=== PATIENT | female | born 1945 | race Caucasian/White ===

== ENCOUNTER 2017-06-20 16:41 | Inpatient (IN) | payer OTHER, MEDICARE, SELFPAY ==
[2017-06-20 16:47] VITALS: BP 143/61; PULSE 88; RESP 20; TEMP 36.7; O2SAT 96
[2017-06-20 16:48] VITALS: BMI 32.5
[2017-06-20 16:54] VITALS: BMI 32.6
[2017-06-20 17:10] LABS: Bedside Glucose 86 mg/dL (70-110)
--- NOTE | 2017-06-20 18:30 | NURSING ---
Pt admitted to room 19 from [facility]. Oriented to room and call light system explained.
[2017-06-20] MEDS: oxyCODONE 5 MG Tablet PO (18:54)
[2017-06-20 20:56] LABS: Bedside Glucose 290 mg/dL (70-110)
--- NOTE | 2017-06-20 21:07 | PCM.HP.STD ---
Problem List (1) Stroke Status: Chronic (2) Peripheral arterial occlusive disease Status: Chronic (3) Ulcer at the right metatarsal head Status: Acute (4) Abscess of right foot Status: Acute (5) C. difficile colitis Status: Chronic (6) Diabetes mellitus Status: Chronic (7) Osteomyelitis of right foot Status: Acute (8) Diabetes mellitus with polyneuropathy Status: Chronic Qualifiers: (9) Hypertension Status: Chronic Qualifiers: (10) Chronic pain Status: Chronic Qualifiers: (11) Fatty liver Status: Chronic (12) Hyperlipidemia Status: Chronic Qualifiers: (13) Coronary artery disease Status: Chronic Qualifiers: (14) Hypothyroidism Status: Chronic Qualifiers: (15) Iron deficiency anemia Status: Chronic Qualifiers: (16) GERD (gastroesophageal reflux disease) Status: Chronic Qualifiers: (17) Vitamin D deficiency Status: Chronic (18) Insomnia Status: Chronic Qualifiers: History of Present Illness Date of Admission: 06/20/17 Chief Complaint: Here for rehabilitation, strengthening, prior to discharge home with spouse. The patient is a 72 year old Female with below past medical history with followin06/11/2017 Direct admit to hospital from Dr. Magana's office for right foot ulcer, right foot cellulitis. Blood cultures x 2, wound cultures done. IV Vancomycin, IV Flagyl. 06/11/2017 Doppler of legs negative for DVT. 06/12/2017 MRI right midfoot showed osteomyelitis 3rd metatarsal head, soft tissue abscess distal third metatarsal head. Patient underwent surgical incision and drainage per Dr. Magana. 06/13/2017 Dr. Webb consulted, cultures growing staph, strep. Continue Vancomycin, Zosyn. 06/18/2017 Dr. Magana perfromed right transmetatarsal amputation. Cultures grew strep agalactiae A, strep mitis, staph aureus. Dr. Webb recommended Augmentin. 06/20/2017 Admit to TCU for rehabilitation, strengthening, prior to discharge home with spouse. Past Medical History Past Medical History (Chronic Problems): Chronic Problems (Last Updated 06/07/17 @ 16:07 by Madison Alicea) Stroke (Chronic) Peripheral arterial occlusive disease (Chronic) Stented coronary artery (Chronic) PTCA and YASIR to proximal and distal CX per Dr. Hatfield 12/21/2014; History of left heart catheterization (Chronic) CABG X 3 vessels [facility]:DANIEL to LAD, reverse SVG to dx and to 2nd OM per Dr. Borjas @ [facility] 09/09/2014; PTCA andDES to proximal and distal CX per Dr. Hatfield 12/21/2014; History of coronary artery bypass graft (Chronic) CABG X 3 vessels [facility]:DANIEL to LAD, reverse SVG to dx and to 2nd OM per Dr. Borjas @ [facility] 09/09/2014 Atherosclerotic heart disease of [place] coronary artery without angina pectoris (Chronic) CABG X 3 vessels [facility]:DANIEL to LAD, reverse SVG to dx and to 2nd OM per Dr. Borjas @ [facility] 09/09/2014; PTCA and YASIR to proximal and distal CX per Dr. Hatfield 12/21/2014; C. 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) Carotid artery disease (Chronic) Xerosis of skin (Chronic) Malnutrition (Chronic) Ulcer of right foot with fat layer exposed (Chronic) Diabetes mellitus with polyneuropathy (Chronic) Peripheral vascular disease (Chronic) History of stroke (Chronic) Hypertension (Chronic) Obesity (Chronic) Diabetes mellitus type II (Chronic) Chronic pain (Chronic) Fatty liver (Chronic) Hyperlipidemia (Chronic) Coronary artery disease (Chronic) Hypothyroidism (Chronic) Iron deficiency anemia (Chronic) GERD (gastroesophageal reflux disease) (Chronic) Vitamin D deficiency (Chronic) Insomnia (Chronic) Allergies Penicillins Allergy (Severe, Verified 06/07/17 15:35) Unknown atorvastatin calcium [From Lipitor] Allergy (Verified 03/10/17 21:12) Unknown bupropion HCl [From Wellbutrin] Allergy (Verified 03/10/17 21:12) Unknown mannitol [From Reclast] Allergy (Verified 03/10/17 21:12) joint pain, unable to breathe, unable to walk propoxyphene napsylate [From Darvocet-N 100] Allergy (Verified 03/10/17 21:12) Unknown Quinolones Allergy (Verified 03/10/17 21:12) Unknown Tetanus Vaccines and Toxoid [Tetanus Vaccines & Toxoid] Allergy (Verified 03/10/17 21:12) Chest tightness tizanidine Allergy (Verified 03/10/17 21:12) Unknown water for injection,sterile [From Reclast] Allergy (Verified 03/10/17 21:12) joint pain, unable to breathe, unable to walk JOINT PAIN,UNABLE TO BREATHE,UNABLE TO WALK zoledronic acid [From Reclast] Allergy (Verified 03/10/17 21:12) joint pain,unable to breathe, unaable to walk JOINT PAIN,UNABLE TO BREATHE,UNABLE TO WALK pravastatin Adverse Reaction (Severe, Verified 06/07/17 15:36) Myalgias gemfibrozil Adverse Reaction (Intermediate, Verified 06/07/17 15:36) Unknown NSAIDS (Non-Steroidal Anti-Inflamma Adverse Reaction (Verified 03/10/17 21:12) Other Home Medications: Ambulatory Orders Medication Instructions Recorded Aspirin [Aspirin, Baby] 81 mg PO DAILY@0800 03/10/17 Clobetasol Propionate/Emoll 1 applic TP BID 03/10/17 [Clobetasol Emollient 0.05% Crm] Clopidogrel Bisulfate [Plavix] 75 mg PO DAILY 03/10/17 Diclofenac Sodium 1 applic TRANSDERM. TID 03/10/17 Ergocalciferol [Vitamin D] 50,000 unit PO Q7D 03/10/17 Levothyroxine Sodium [Levoxyl] 75 mcg PO QHS 03/10/17 Metoprolol Tartrate [Lopressor 50 mg PO BID 03/10/17 (beta fina)] Nitroglycerin [Nitrostat] 0.4 mg SUBLINGUAL Q5M PRN 03/10/17 Pantoprazole Sodium [Protonix] 40 mg PO DAILY 03/10/17 Pravastatin Sodium 40 mg PO DAILY 03/10/17 Menthol/Lanolin/Calamine/Znox 1 applic TOPICAL DAILY 03/11/17 [Calmoseptine Ointment] insulin aspart 100 unit/mL 20 unit SC TIDAC ml 06/07/17 subcutaneous pen isosorbide mononitrate ER 30 mg 30 mg PO BID tab 06/07/17 tablet,extended release 24 hr Amlodipine Besylate [Norvasc] 5 mg PO QHS 06/11/17 Calcium Carbonate [Tums] 500 mg PO Q4H PRN PRN 06/11/17 Cholestyramine (with Sugar) 4 gm PO DAILY 06/11/17 [Cholestyramine Packet] Ferrous Sulfate Syrup 300 mg PO BIDCM 06/11/17 Gabapentin [Neurontin] 300 mg PO QHS 06/11/17 Magnesium Oxide 400 mg PO DINNER 06/11/17 Melatonin 10 mg PO QHS PRN PRN 06/11/17 Promethazine HCl 25 mg PO BID PRN PRN 06/11/17 Cholestyramine/Aspartame 4 gm PO BID PRN 06/15/17 [Cholestyramine Light Packet] Acetaminophen [Tylenol Tablet] 650 mg PO Q6H PRN PRN tablet 06/20/17 Amoxicillin/Potassium Clav 1 each PO BID 06/20/17 [Augmentin 875-125 Tablet] Cyclobenzaprine [Flexeril] 10 mg PO TID PRN PRN tablet 06/20/17 Diazepam [Valium] 2 mg PO TID PRN PRN #6 tab 06/20/17 Enoxaparin [Lovenox] 40 mg SC DAILY@0600 06/20/17 Insulin Detemir [Levemir FlexPen] 20 units SC BREAKFAST 06/20/17 Insulin Detemir [Levemir FlexPen] 30 units SC DINNER 06/20/17 Lactobacillus Acidophilus 1 tablet PO TID 06/20/17 [Acidophilus] Lidocaine [Lidoderm Patch] 1 patch TOPICAL DAILY 06/20/17 Loperamide [Imodium] 2 mg PO Q6H PRN PRN capsule 06/20/17 Oxycodone CR [Oxycontin] 20 mg PO BID 06/20/17 Oxycodone [Oxyir] 5 - 10 mg PO Q4H PRN PRN #12 tab 06/20/17 Surgical History: appendectomy, coronary bypass surgery, gastric bypass, tonsillectomy, - - Cardiac stent, , Carpal tunnel release, 3rd toe amputation, carotid endarterectomy, right foot 5th ray amputation, right foot transmetatarsal amputation. 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 Lives: Spouse/ Significant Other Smoking Status: Never smoker Tobacco Use: Non-smoker Alcohol: None Drugs: None - *Family History Paternal Family History: Family History (Last Updated 06/13/17 @ 16:50 by CLIFFORD Burris) Mother Cancer CVA (cerebral vascular accident) CAD (coronary artery disease) Father CAD (coronary artery disease) History of coronary artery bypass graft Sister CAD (coronary artery disease) Multiple sclerosis History Items: No pertinent history Maternal Family History: Family History (Last Updated 06/13/17 @ 16:50 by ADDISON BurrisC) Mother Cancer CVA (cerebral vascular accident) CAD (coronary artery disease) Father CAD (coronary artery disease) History of coronary artery bypass graft Sister CAD (coronary artery disease) Multiple sclerosis History Items: No pertinent history Review of Systems Constitutional: Denies: Chills, Fever, Weight Change HEENT: Denies: Head Aches, Sinus Congestion, Sinus Drainage Cardiovascular: Denies: Chest Pain, Palpitations Respiratory: Denies: Cough, Shortness of breath at rest, Sputum production Gastrointestinal: Denies: Abdominal Pain, Nausea, Vomiting Genitourinary: Denies: Dysuria Musculoskeletal: Reports: Foot Pain - Right., Muscle pain. Denies: Joint Pain, Joint Tenderness Skin: Denies: Rash, Wounds Neurological: Denies: Numbness, Tingling, Focal weakness Psychiatric: Denies: Anxiety, Depression, Homicidal Ideations, Suicidal Ideations Hematologic/ Lymphatic: Denies: Easy Bruising, Easy Bleeding VTE Information - Inpt Only VTE Present on Admission: No VTE Mechan Device Prophylaxis: Knee High MINDY Hose VTE Pharm Prophylaxis ordered?: Yes - Physical Exam General: Alert, Oriented x3, Cooperative HEENT: Atraumatic, PERRLA, EOMI, Normocephalic Neck: Supple, No JVD, Negative Carotid Bruits Lungs: Clear to auscultation, Normal air movement Cardiovascular: Regular rate, No murmurs Abdomen: Bowel Sounds Present, Soft, Non Tender Extremities: No edema, Capillary Refill Less than 3 Seconds, - - Right foot wrapped in dressing, PICC line right upper extremity. Skin: No rashes, No breakdown Musculoskeletal: No Tenderness to Palpation of Joints or Extremities, Muscle Wasting Neurological: Cranial nerves II-XII grossly intact Psych/Mental Status: Normal Affect, Appropriate Vital Signs Temp Pulse Resp BP Pulse Ox 98.0 F 88 20 H 143/61 H 96 06/20/17 16:47 06/20/17 16:47 06/20/17 16:47 06/20/17 16:47 06/20/17 16:47 Oxygen Delivery Method Room Air Weight: 86.1 kg Body Mass Index (BMI) 32.5 Finger Stick Blood Glucose 193 Intake and Output for Last 24 Hours 01/06/19/17 06/20/17 23:59 23:59 23:59 Intake Total 240 / 240 Balance 240 / 240 POC Glucose 06/20/17 06/20/17 20:47 16:58 POC Glucose 290 H 86 Assessment/Plan 72 year old female with below past medical history hospitalized for right foot ulcer, right foot osteomyelitis, underwent right foot transmetatarsal amputation per Dr. Magana 06/18/2017, admitted to TCU for rehabilitation, strengthening, prior to discharge home with spouse. Debility - PT/OT. Pain - Tylenol 1000MG Q8H PRN mild pain, Oxycontin 20MG BID, Oxycodone 10MG Q4H PRN severe pain, Lidoderm patch 1 patch daily. Bowel - resident has diarrhea. Pneumonia vaccination - Administer Prevnar 13 and/or Pneumovax 23 as necessary. DVT prophylaxis - Lovenox 40MG SC daily. Hypertension - Metoprolol 50MG BID, Amlodipine 5MG QHS. Right foot osteomyelitis status post transmetatarsal amputation - Augmentin 875MG BID, stop date per Dr. Webb, Dr. Magana following. Coronary Artery Disease - Metoprolol 50MG BID, Imdur 30MG TID, Plavix 75MG daily, Aspirin 81MG daily, NTG 0.4MG SL Q5M PRN chest pain. GERD - Pantoprazole 40MG daily, TUMS 500MG Q4H PRN. Diarrhea - Questran 4GM daily, BID PRN, Loperamide 2MG Q6H PRN. Dermatitis - Temovate topically BID. Muscle spasm - Baclofen 10MG TID, Diazepam 2MG TID. Osteoarthritis - Diclofenac transderm TID. Vitamin D deficiency - D2 50,000 units per week. Iron deficiency anemia - Ferrous sulfate 300MG BIDCM. Neuropathic pain - Gabapentin 300MG QHS. Nutrition - Glucerna shake 120ML PO TID, Blue 1 packet BID. Diabetes Mellitus II - Levemir 20 units QAM, 30 units Qdinner, Novolog 20 units TIDAC. C. Diff prophylaxis - Lactobacillus 1 tablet TID. Hypothyroidism - Levothyroxine 75MG daily. Hypomagnesemia - Mag Oxide 400MG dinner. Insomnia - Melatonin 10MG QHS. Skin irritation - Calmoseptine 4x/day buttocks. Hyperlipidemia - Pravastatin 40MG QHS. Nausea - Phenergan 25MG BID PRN.
--- NOTE | 2017-06-20 21:15 | HP.PCM_ITS ---
Problem List (1) Stroke Status: Chronic (2) Peripheral arterial occlusive disease Status: Chronic (3) Ulcer at the right metatarsal head Status: Acute (4) Abscess of right foot Status: Acute (5) C. difficile colitis Status: Chronic (6) Diabetes mellitus Status: Chronic (7) Osteomyelitis of right foot Status: Acute (8) Diabetes mellitus with polyneuropathy Status: Chronic Qualifiers: (9) Hypertension Status: Chronic Qualifiers: (10) Chronic pain Status: Chronic Qualifiers: (11) Fatty liver Status: Chronic (12) Hyperlipidemia Status: Chronic Qualifiers: (13) Coronary artery disease Status: Chronic Qualifiers: (14) Hypothyroidism Status: Chronic Qualifiers: (15) Iron deficiency anemia Status: Chronic Qualifiers: (16) GERD (gastroesophageal reflux disease) Status: Chronic Qualifiers: (17) Vitamin D deficiency Status: Chronic (18) Insomnia Status: Chronic Qualifiers: History of Present Illness Date of Admission: 06/20/17 Chief Complaint: Here for rehabilitation, strengthening, prior to discharge home with spouse. The patient is a 72 year old Female with below past medical history with followin06/11/2017 Direct admit to hospital from Dr. Magana's office for right foot ulcer, right foot cellulitis. Blood cultures x 2, wound cultures done. IV Vancomycin, IV Flagyl. 06/11/2017 Doppler of legs negative for DVT. 06/12/2017 MRI right midfoot showed osteomyelitis 3rd metatarsal head, soft tissue abscess distal third metatarsal head. Patient underwent surgical incision and drainage per Dr. Magana. 06/13/2017 Dr. Webb consulted, cultures growing staph, strep. Continue Vancomycin, Zosyn. 06/18/2017 Dr. Magana perfromed right transmetatarsal amputation. Cultures grew strep agalactiae A, strep mitis, staph aureus. Dr. Webb recommended Augmentin. 06/20/2017 Admit to TCU for rehabilitation, strengthening, prior to discharge home with spouse. Past Medical History Past Medical History (Chronic Problems): Chronic Problems (Last Updated 06/07/17 @ 16:07 by Madison Alicea) Stroke (Chronic) Peripheral arterial occlusive disease (Chronic) Stented coronary artery (Chronic) PTCA and YASIR to proximal and distal CX per Dr. Hatfield 12/21/2014; History of left heart catheterization (Chronic) CABG X 3 vessels [facility]:DANIEL to LAD, reverse SVG to dx and to 2nd OM per Dr. Borjas @ [facility] 09/09/2014; PTCA andDES to proximal and distal CX per Dr. Hatfield ; History of coronary artery bypass graft (Chronic) CABG X 3 vessels [facility]:DANIEL to LAD, reverse SVG to dx and to 2nd OM per Dr. Borjas @ [facility] 09/09/2014 Atherosclerotic heart disease of [place] coronary artery without angina pectoris (Chronic) CABG X 3 vessels [facility]:DANIEL to LAD, reverse SVG to dx and to 2nd OM per Dr. Borjas @ [facility] 09/09/2014; PTCA and YASIR to proximal and distal CX per Dr. Hatfield 12/21/2014; C. 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) Carotid artery disease (Chronic) Xerosis of skin (Chronic) Malnutrition (Chronic) Ulcer of right foot with fat layer exposed (Chronic) Diabetes mellitus with polyneuropathy (Chronic) Peripheral vascular disease (Chronic) History of stroke (Chronic) Hypertension (Chronic) Obesity (Chronic) Diabetes mellitus type II (Chronic) Chronic pain (Chronic) Fatty liver (Chronic) Hyperlipidemia (Chronic) Coronary artery disease (Chronic) Hypothyroidism (Chronic) Iron deficiency anemia (Chronic) GERD (gastroesophageal reflux disease) (Chronic) Vitamin D deficiency (Chronic) Insomnia (Chronic) Allergies Penicillins Allergy (Severe, Verified 06/07/17 15:35) Unknown atorvastatin calcium [From Lipitor] Allergy (Verified 03/10/17 21:12) Unknown bupropion HCl [From Wellbutrin] Allergy (Verified 03/10/17 21:12) Unknown mannitol [From Reclast] Allergy (Verified 03/10/17 21:12) joint pain, unable to breathe, unable to walk propoxyphene napsylate [From Darvocet-N 100] Allergy (Verified 03/10/17 21:12) Unknown Quinolones Allergy (Verified 03/10/17 21:12) Unknown Tetanus Vaccines and Toxoid [Tetanus Vaccines & Toxoid] Allergy (Verified 21:12) Chest tightness tizanidine Allergy (Verified 03/10/17 21:12) Unknown water for injection,sterile [From Reclast] Allergy (Verified 03/10/17 21:12) joint pain, unable to breathe, unable to walk JOINT PAIN,UNABLE TO BREATHE,UNABLE TO WALK zoledronic acid [From Reclast] Allergy (Verified 03/10/17 21:12) joint pain,unable to breathe, unaable to walk JOINT PAIN,UNABLE TO BREATHE,UNABLE TO WALK pravastatin Adverse Reaction (Severe, Verified 06/07/17 15:36) Myalgias gemfibrozil Adverse Reaction (Intermediate, Verified 06/07/17 15:36) Unknown NSAIDS (Non-Steroidal Anti-Inflamma Adverse Reaction (Verified 03/10/17 21:12) Other Home Medications: Ambulatory Orders Medication Instructions Recorded Aspirin [Aspirin, Baby] 81 mg PO DAILY@0800 03/10/17 Clobetasol Propionate/Emoll 1 applic TP BID 03/10/17 [Clobetasol Emollient 0.05% Crm] Clopidogrel Bisulfate [Plavix] 75 mg PO DAILY 03/10/17 Diclofenac Sodium 1 applic TRANSDERM. TID 03/10/17 Ergocalciferol [Vitamin D] 50,000 unit PO Q7D 03/10/17 Levothyroxine Sodium [Levoxyl] 75 mcg PO QHS 03/10/17 Metoprolol Tartrate [Lopressor 50 mg PO BID 03/10/17 (beta fina)] Nitroglycerin [Nitrostat] 0.4 mg SUBLINGUAL Q5M PRN 03/10/17 Pantoprazole Sodium [Protonix] 40 mg PO DAILY 03/10/17 Pravastatin Sodium 40 mg PO DAILY 03/10/17 Menthol/Lanolin/Calamine/Znox 1 applic TOPICAL DAILY 03/11/17 [Calmoseptine Ointment] insulin aspart 100 unit/mL 20 unit SC TIDAC ml 06/07/17 subcutaneous pen isosorbide mononitrate ER 30 mg 30 mg PO BID tab 06/07/17 tablet,extended release 24 hr Amlodipine Besylate [Norvasc] 5 mg PO QHS 06/11/17 Calcium Carbonate [Tums] 500 mg PO Q4H PRN PRN 06/11/17 Cholestyramine (with Sugar) 4 gm PO DAILY 06/11/17 [Cholestyramine Packet] Ferrous Sulfate Syrup 300 mg PO BIDCM 06/11/17 Gabapentin [Neurontin] 300 mg PO QHS 06/11/17 Magnesium Oxide 400 mg PO DINNER 06/11/17 Melatonin 10 mg PO QHS PRN PRN 06/11/17 Promethazine HCl 25 mg PO BID PRN PRN 06/11/17 Cholestyramine/Aspartame 4 gm PO BID PRN 06/15/17 [Cholestyramine Light Packet] Acetaminophen [Tylenol Tablet] 650 mg PO Q6H PRN PRN tablet 06/20/17 Amoxicillin/Potassium Clav 1 each PO BID 06/20/17 [Augmentin 875-125 Tablet] Cyclobenzaprine [Flexeril] 10 mg PO TID PRN PRN tablet 06/20/17 Diazepam [Valium] 2 mg PO TID PRN PRN #6 tab 06/20/17 Enoxaparin [Lovenox] 40 mg SC DAILY@0600 06/20/17 Insulin Detemir [Levemir FlexPen] 20 units SC BREAKFAST 06/20/17 Insulin Detemir [Levemir FlexPen] 30 units SC DINNER 06/20/17 Lactobacillus Acidophilus 1 tablet PO TID 06/20/17 [Acidophilus] Lidocaine [Lidoderm Patch] 1 patch TOPICAL DAILY 06/20/17 Loperamide [Imodium] 2 mg PO Q6H PRN PRN capsule 06/20/17 Oxycodone CR [Oxycontin] 20 mg PO BID 06/20/17 Oxycodone [Oxyir] 5 - 10 mg PO Q4H PRN PRN #12 tab 06/20/17 Surgical History: appendectomy, coronary bypass surgery, gastric bypass, tonsillectomy, - - Cardiac stent, , Carpal tunnel release, 3rd toe amputation, carotid endarterectomy, right foot 5th ray amputation, right foot transmetatarsal amputation. 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 Lives: Spouse/ Significant Other Smoking Status: Never smoker Tobacco Use: Non-smoker Alcohol: None Drugs: None - *Family History Paternal Family History: Family History (Last Updated 06/13/17 @ 16:50 by CLIFFORD Burris) Mother Cancer CVA (cerebral vascular accident) CAD (coronary artery disease) Father CAD (coronary artery disease) History of coronary artery bypass graft Sister CAD (coronary artery disease) Multiple sclerosis History Items: No pertinent history Maternal Family History: Family History (Last Updated 06/13/17 @ 16:50 by ADDISON BurrisC) Mother Cancer CVA (cerebral vascular accident) CAD (coronary artery disease) Father CAD (coronary artery disease) History of coronary artery bypass graft Sister CAD (coronary artery disease) Multiple sclerosis History Items: No pertinent history Review of Systems Constitutional: Denies: Chills, Fever, Weight Change HEENT: Denies: Head Aches, Sinus Congestion, Sinus Drainage Cardiovascular: Denies: Chest Pain, Palpitations Respiratory: Denies: Cough, Shortness of breath at rest, Sputum production Gastrointestinal: Denies: Abdominal Pain, Nausea, Vomiting Genitourinary: Denies: Dysuria Musculoskeletal: Reports: Foot Pain - Right., Muscle pain. Denies: Joint Pain, Joint Tenderness Skin: Denies: Rash, Wounds Neurological: Denies: Numbness, Tingling, Focal weakness Psychiatric: Denies: Anxiety, Depression, Homicidal Ideations, Suicidal Ideations Hematologic/ Lymphatic: Denies: Easy Bruising, Easy Bleeding VTE Information - Inpt Only VTE Present on Admission: No VTE Mechan Device Prophylaxis: Knee High MINDY Hose VTE Pharm Prophylaxis ordered?: Yes - Physical Exam General: Alert, Oriented x3, Cooperative HEENT: Atraumatic, PERRLA, EOMI, Normocephalic Neck: Supple, No JVD, Negative Carotid Bruits Lungs: Clear to auscultation, Normal air movement Cardiovascular: Regular rate, No murmurs Abdomen: Bowel Sounds Present, Soft, Non Tender Extremities: No edema, Capillary Refill Less than 3 Seconds, - - Right foot wrapped in dressing, PICC line right upper extremity. Skin: No rashes, No breakdown Musculoskeletal: No Tenderness to Palpation of Joints or Extremities, Muscle Wasting Neurological: Cranial nerves II-XII grossly intact Psych/Mental Status: Normal Affect, Appropriate Vital Signs Temp Pulse Resp BP Pulse Ox 98.0 F 88 20 H 143/61 H 96 06/20/17 16:47 06/20/17 16:47 06/20/17 16:47 06/20/17 16:47 06/20/17 16:47 Oxygen Delivery Method Room Air Weight: 86.1 kg Body Mass Index (BMI) 32.5 Finger Stick Blood Glucose 193 Intake and Output for Last 24 Hours 01/06/19/17 06/20/17 23:59 23:59 23:59 Intake Total 240 / 240 Balance 240 / 240 POC Glucose 06/20/17 06/20/17 20:47 16:58 POC Glucose 290 H 86 Assessment/Plan 72 year old female with below past medical history hospitalized for right foot ulcer, right foot osteomyelitis, underwent right foot transmetatarsal amputation per Dr. Magana 06/18/2017, admitted to TCU for rehabilitation, strengthening, prior to discharge home with spouse. * Debility - PT/OT. * Pain - Tylenol 1000MG Q8H PRN mild pain, Oxycontin 20MG BID, Oxycodone 10MG Q4H PRN severe pain, Lidoderm patch 1 patch daily. * Bowel - resident has diarrhea. * Pneumonia vaccination - Administer Prevnar 13 and/or Pneumovax 23 as necessary. * DVT prophylaxis - Lovenox 40MG SC daily. * Hypertension - Metoprolol 50MG BID, Amlodipine 5MG QHS. * Right foot osteomyelitis status post transmetatarsal amputation - Augmentin 875MG BID, stop date per Dr. Webb, Dr. Magana following. * Coronary Artery Disease - Metoprolol 50MG BID, Imdur 30MG TID, Plavix 75MG daily, Aspirin 81MG daily, NTG 0.4MG SL Q5M PRN chest pain. * GERD - Pantoprazole 40MG daily, TUMS 500MG Q4H PRN. * Diarrhea - Questran 4GM daily, BID PRN, Loperamide 2MG Q6H PRN. * Dermatitis - Temovate topically BID. * Muscle spasm - Baclofen 10MG TID, Diazepam 2MG TID. * Osteoarthritis - Diclofenac transderm TID. * Vitamin D deficiency - D2 50,000 units per week. * Iron deficiency anemia - Ferrous sulfate 300MG BIDCM. * Neuropathic pain - Gabapentin 300MG QHS. * Nutrition - Glucerna shake 120ML PO TID, Blue 1 packet BID. * Diabetes Mellitus II - Levemir 20 units QAM, 30 units Qdinner, Novolog 20 units TIDAC. * C. Diff prophylaxis - Lactobacillus 1 tablet TID. * Hypothyroidism - Levothyroxine 75MG daily. * Hypomagnesemia - Mag Oxide 400MG dinner. * Insomnia - Melatonin 10MG QHS. * Skin irritation - Calmoseptine 4x/day buttocks. * Hyperlipidemia - Pravastatin 40MG QHS. * Nausea - Phenergan 25MG BID PRN.
[2017-06-20] MEDS: Gabapentin 300 MG Capsule PO (21:39)
[2017-06-20] MEDS: amLODIPine 5 MG Tablet PO (21:40)
[2017-06-20] MEDS: Levothyroxine 75 MCG Tablet PO (21:40)
--- NOTE | 2017-06-20 22:10 | NURSING ---
Dr. Rush notified of patient's BS of 290. No new orders given.
[2017-06-20] MEDS: MELATONIN 10 MG TABLET PO (23:33)
[2017-06-20] MEDS: oxyCODONE 5 MG Tablet 10 MG PO (23:33)
[2017-06-20] MEDS: diazePAM 2 MG Tablet PO (23:34)
[2017-06-20] MEDS: Baclofen 10 MG Tablet PO (23:34)
[2017-06-20] MEDS: Menthol/Lanolin/Calamine/Znox 113 GM Tube 1 APPLIC TOPICAL (23:34)
[2017-06-20 23:50] LABS: Bedside Glucose 321 mg/dL (70-110)
--- NOTE | 2017-06-20 23:54 | NURSING ---
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 NOT SOCIAL EARLIER IN THE SHIFT, STATES HER PAIN IS A 6/10. PT REQUESTED AND GIVEN PRN PAIN MED, PT REQUESTED AND RECEIVED A WARM BLANKET. ACCUCHECK DONE RESULT OF 321, REPORTED TO PER ODILIA. NEW ORDER RECEIVED.
[2017-06-21 06:35] VITALS: BP 147/69; PULSE 85
[2017-06-21] MEDS: Metoprolol Tartrate 50 MG Tablet PO ×2 (06:35→17:55)
[2017-06-21] MEDS: Pravastatin 40 MG Tablet PO (06:35)
[2017-06-21] MEDS: Enoxaparin 40 MG/0.4 ML Syringe SC (06:35)
[2017-06-21] MEDS: Pantoprazole Sodium 40 MG Tablet PO (06:35)
[2017-06-21] MEDS: Clopidogrel Bisulfate 75 MG Tablet PO (06:35)
[2017-06-21] MEDS: Baclofen 10 MG Tablet PO (06:38)
[2017-06-21] MEDS: Menthol/Lanolin/Calamine/Znox 113 GM Tube 1 APPLIC TOPICAL ×4 (06:40→22:20)
[2017-06-21] MEDS: Lidocaine 5% Patch 1 PATCH TOPICAL (06:43)
[2017-06-21] MEDS: Isosorbide Mononitrate 30 MG Tablet PO ×2 (06:43→18:21)
[2017-06-21] MEDS: Amox/Clavulanate 875 MG Tablet PO ×2 (06:44→18:21)
[2017-06-21 07:01] LABS: Bedside Glucose 140 mg/dL (70-110)
[2017-06-21] MEDS: diazePAM 2 MG Tablet PO ×2 (07:11→23:59)
[2017-06-21 07:16] LABS: Absolute Lymphocyte Count 1.87 X10^3/ul (0.83-4.51); Absolute Neutrophil Count 3.5 X10^3/uL (2.0-7.7); Basophil# 0.01 X10^3/uL; Basophil% 0.2 % (0-1); Eosinophil# 0.37 X10^3/uL; Eosinophils% 5.7 % (0-5); Hematocrit 30.2 % (37-47); Hemoglobin 9.4 g/dl (12.0-15.0); Lymphocyte # 1.87 X10^3/ul (4.0); Lymphocyte % 28.7 % (19-41); Mean Corp Hgb Conc 31.1 g/gl (32-36); Mean Corpuscular Hgb 26.2 pg (27.0-32.0); Mean Corpuscular Volume 84.1 fL (81-99); Mean Platelet Vol. 8.7 fl (6.2-12.0); Monocyte# 0.76 X10^3/uL; Monocyte% 11.7 % (0-10); Neutrophil # 3.49 X10^3/uL (2.7-7.7); Neutrophil % 53.4 % (47-70); Platelet Count 227 K/mm3 (150-450); RBC Distribution Width CV 15.5 % (11.6-14.6); Red Blood Count 3.59 M/mm3 (4.2-5.4); White Blood Count 6.5 K/mm3 (4.4-11.0)
[2017-06-21 07:20] LABS: Anion Gap 8 (5-15); BUN 27 mg/dL (7-18); Calcium,Total 8.8 mg/dL (8.5-10.1); Chloride 107 mmol/L (98-107); Creatinine, Serum 1.35 mg/dL (0.55-1.02); EST Glomerular Filtration Rate 41 mL/min (>60); Est Glom Filt Rate - Afr Amer 50 mL/min (>60); Estimated Creatinine Clearance 33.48 ml/min; Glucose 142 mg/dL (70-110); Potassium 4.2 mmol/L (3.5-5.1); Sodium Level 142 mmol/L (136-145)
[2017-06-21 07:21] LABS: POSITIVE COUNT NO; POSITIVE DIFFERENTIAL NO; POSITIVE MORPHOLOGY NO
[2017-06-21] MEDS: Ferrous Sulfate 300 MG/5 ML UDC PO (09:28)
[2017-06-21] MEDS: Aspirin 81 MG TAB.CHEW PO (09:28)
[2017-06-21] MEDS: Glucerna Shake 120 ML LIQUID PO ×3 (09:28→17:55)
[2017-06-21 11:56] LABS: Bedside Glucose 204 mg/dL (70-110)
[2017-06-21] MEDS: Tuberculin,Purif.prot.deriv. 50 TU/ML Vial 5 ML ID (12:18)
[2017-06-21] MEDS: Acetaminophen 500 MG Tablet 1000 MG PO (12:24)
--- NOTE | 2017-06-21 13:29 | PCM.PN.RX ---
<EyallazaramargoZay Juan Antonio - Last Filed: 06/21/17 13:29> Progress Note - Pharmacy Subjective: [] Objective: Allergies Penicillins Allergy (Severe, Verified 06/07/17 15:35) Unknown atorvastatin calcium [From Lipitor] Allergy (Verified 03/10/17 21:12) Unknown bupropion HCl [From Wellbutrin] Allergy (Verified 03/10/17 21:12) Unknown mannitol [From Reclast] Allergy (Verified 03/10/17 21:12) joint pain, unable to breathe, unable to walk propoxyphene napsylate [From Darvocet-N 100] Allergy (Verified 03/10/17 21:12) Unknown Quinolones Allergy (Verified 03/10/17 21:12) Unknown Tetanus Vaccines and Toxoid [Tetanus Vaccines & Toxoid] Allergy (Verified 03/10/17 21:12) Chest tightness tizanidine Allergy (Verified 03/10/17 21:12) Unknown water for injection,sterile [From Reclast] Allergy (Verified 03/10/17 21:12) joint pain, unable to breathe, unable to walk JOINT PAIN,UNABLE TO BREATHE,UNABLE TO WALK zoledronic acid [From Reclast] Allergy (Verified 03/10/17 21:12) joint pain,unable to breathe, unaable to walk JOINT PAIN,UNABLE TO BREATHE,UNABLE TO WALK pravastatin Adverse Reaction (Severe, Verified 06/07/17 15:36) Myalgias gemfibrozil Adverse Reaction (Intermediate, Verified 06/07/17 15:36) Unknown NSAIDS (Non-Steroidal Anti-Inflamma Adverse Reaction (Verified 03/10/17 21:12) Other Home Medications Medication Instructions Recorded Aspirin [Aspirin, Baby] 81 mg PO DAILY@0800 03/10/17 Clobetasol Propionate/Emoll 1 applic TP BID 03/10/17 [Clobetasol Emollient 0.05% Crm] Clopidogrel Bisulfate [Plavix] 75 mg PO DAILY 03/10/17 Diclofenac Sodium 1 applic TRANSDERM. TID 03/10/17 Ergocalciferol [Vitamin D] 50,000 unit PO Q7D 03/10/17 Levothyroxine Sodium [Levoxyl] 75 mcg PO QHS 03/10/17 Metoprolol Tartrate [Lopressor 50 mg PO BID 03/10/17 (beta marine)] Nitroglycerin [Nitrostat] 0.4 mg SUBLINGUAL Q5M PRN 03/10/17 Pantoprazole Sodium [Protonix] 40 mg PO DAILY 03/10/17 Pravastatin Sodium 40 mg PO DAILY 03/10/17 Menthol/Lanolin/Calamine/Znox 1 applic TOPICAL DAILY 03/11/17 [Calmoseptine Ointment] insulin aspart 100 unit/mL 20 unit SC TIDAC ml 06/07/17 subcutaneous pen isosorbide mononitrate ER 30 mg 30 mg PO BID tab 06/07/17 tablet,extended release 24 hr Amlodipine Besylate [Norvasc] 5 mg PO QHS 06/11/17 Calcium Carbonate [Tums] 500 mg PO Q4H PRN PRN 06/11/17 Cholestyramine (with Sugar) 4 gm PO DAILY 06/11/17 [Cholestyramine Packet] Ferrous Sulfate Syrup 300 mg PO BIDCM 06/11/17 Gabapentin [Neurontin] 300 mg PO QHS 06/11/17 Magnesium Oxide 400 mg PO DINNER 06/11/17 Melatonin 10 mg PO QHS PRN PRN 06/11/17 Promethazine HCl 25 mg PO BID PRN PRN 06/11/17 Cholestyramine/Aspartame 4 gm PO BID PRN 06/15/17 [Cholestyramine Light Packet] Acetaminophen [Tylenol Tablet] 650 mg PO Q6H PRN PRN tablet 06/20/17 Amoxicillin/Potassium Clav 1 each PO BID 06/20/17 [Augmentin 875-125 Tablet] Cyclobenzaprine [Flexeril] 10 mg PO TID PRN PRN tablet 06/20/17 Diazepam [Valium] 2 mg PO TID PRN PRN #6 tab 06/20/17 Enoxaparin [Lovenox] 40 mg SC DAILY@0600 06/20/17 Insulin Detemir [Levemir FlexPen] 20 units SC BREAKFAST 06/20/17 Insulin Detemir [Levemir FlexPen] 30 units SC DINNER 06/20/17 Lactobacillus Acidophilus 1 tablet PO TID 06/20/17 [Acidophilus] Lidocaine [Lidoderm Patch] 1 patch TOPICAL DAILY 06/20/17 Loperamide [Imodium] 2 mg PO Q6H PRN PRN capsule 06/20/17 Oxycodone CR [Oxycontin] 20 mg PO BID 06/20/17 Oxycodone [Oxyir] 5 - 10 mg PO Q4H PRN PRN #12 tab 06/20/17 Current Medications Generic Name Dose Route Start Last Admin Trade Name Freq PRN Reason Stop Dose Admin Acetaminophen 1,000 mg 06/20/17 21:42 06/21/17 12:24 Tylenol PO 1,000 mg Q8H PRN Administration MILD PAIN (1-3/10) Amlodipine Besylate 5 mg 06/20/17 22:00 06/20/17 21:40 Norvasc PO 5 mg QHS [facility] Administration Amoxicillin/Clavulanate Potassium 875 mg 06/21/17 06:00 06/21/17 06:44 Augmentin Tablet PO 875 mg BID [facility] Administration Aspirin 81 mg 06/21/17 08:00 06/21/17 09:28 Aspirin, Baby PO 81 mg DAILY@0800 [facility] Administration Baclofen 10 mg 06/20/17 22:00 06/21/17 06:38 Lioresal PO 10 mg TID [facility] Administration Calamine/Phenol 1 applic 06/20/17 22:00 06/21/17 12:23 Calmoseptine Ointment TOPICAL 1 tube 4X/DAY [facility] Administration Protocol Calcium Carbonate 500 mg 06/20/17 18:12 Tums PO Q4H PRN PRN acid reflux Cholestyramine Resin 4 gm 06/20/17 18:12 Questran 4gm Packet PO BID PRN Diarrhea Cholestyramine Resin 4 gm 06/21/17 06:00 06/21/17 07:17 Questran 4gm Packet PO Not Given DAILY [facility] Clobetasol Propionate 1 applic 06/21/17 06:00 06/21/17 07:03 Temovate Ointment TOPICAL Not Given BID [facility] Clopidogrel Bisulfate 75 mg 06/21/17 06:00 06/21/17 06:35 Plavix PO 75 mg DAILY [facility] Administration Diazepam 2 mg 06/20/17 22:00 06/21/17 07:11 Valium PO 2 mg TID [facility] Administration Enoxaparin Sodium 40 mg 06/21/17 06:00 06/21/17 06:35 Lovenox SC 40 mg DAILY@0600 [facility] Administration Ergocalciferol 50,000 unit 06/20/17 18:15 01/25/18 21:39 Vitamin D PO 50,000 unit Q7D [facility] Administration Ferrous Sulfate 300 mg 06/21/17 08:00 06/21/17 09:28 Ferrous Sulfate Syrup PO 300 mg BIDCM [facility] Administration Gabapentin 300 mg 06/20/17 22:00 06/20/17 21:39 Neurontin PO 300 mg QHS [facility] Administration Heparin Sodium (Beef Lung) 500 unit 06/21/17 07:44 Heparin 500 Unit/5 Ml (100/Ml) IV UD PRN HEPARIN FLUSH Insulin Aspart 20 units 06/21/17 06:45 06/21/17 12:18 Novolog Flexpen ([facility]) SC 20 u TIDAC [facility] Administration Insulin Detemir 20 units 06/21/17 08:00 06/21/17 09:29 Levemir ([facility]) SC 20 units BREAKFAST [facility] Administration Insulin Detemir 30 units 06/21/17 17:00 Levemir ([facility]) SC DINNER [facility] Isosorbide Mononitrate 30 mg 06/21/17 06:00 06/21/17 06:43 Imdur PO 30 mg BID [facility] Administration Lactobacillus Acidophilus 1 tablet 06/20/17 22:00 06/21/17 06:44 Acidophilus PO 1 tablet TID [facility] Administration Levothyroxine Sodium 75 mcg 06/20/17 22:00 06/20/17 21:40 Synthroid PO 75 mcg QHS [facility] Administration Lidocaine 1 patch 06/21/17 06:00 06/21/17 06:43 Lidoderm Patch TOPICAL 1 patch DAILY [facility] Administration Protocol Loperamide HCl 2 mg 06/20/17 18:12 Imodium PO Q6H PRN PRN Diarrhea Magnesium Oxide 400 mg 06/21/17 17:00 Mag-Ox 400 PO DINNER [facility] Melatonin 10 mg 06/20/17 22:00 06/20/17 23:33 Melatonin PO 10 mg QHS [facility] Administration Metoprolol Tartrate 50 mg 06/21/17 06:00 06/21/17 06:35 Lopressor (Beta Marine) PO 50 mg BID [facility] Administration Nitroglycerin 0.4 mg 06/20/17 18:12 Nitrostat SUBLINGUAL Q5M PRN Chest Pain Nutritional Formula 1 packet 06/21/17 08:00 06/21/17 09:28 Blue - [place] Flavor PO 1 packet BIDCM [facility] Administration Nutritional Formula (Lactose Free) 120 ml 06/21/17 07:45 06/21/17 12:18 Glucerna Shake PO 120 ml TIDCM [facility] Administration Oxycodone HCl 20 mg 06/21/17 06:00 06/21/17 07:05 Oxycontin PO Not Given BID [facility] Oxycodone HCl 10 mg 06/20/17 21:42 06/20/17 23:33 Oxyir PO 10 mg Q4H PRN PRN Administration SEVERE PAIN (6-03/05) Pantoprazole Sodium 40 mg 06/21/17 06:00 06/21/17 06:35 Protonix PO 40 mg DAILY [facility] Administration Pravastatin Sodium 40 mg 06/21/17 06:00 06/21/17 06:35 Pravachol PO 40 mg DAILY [facility] Administration Promethazine HCl 25 mg 06/20/17 18:12 Phenergan PO BID PRN PRN Diarrhea Sodium Chloride 10 - 20 ml 06/21/17 07:44 IV UD PRN PICC FLUSH Tuberculin PPD 5 tu 06/28/17 10:00 Tubersol, Aplisol, Ppd ID 06/28/17 10:01 X1 ONE Problem List (Last Updated 06/07/17 @ 16:07 by Madison Alicea) Stroke (Chronic) Peripheral arterial occlusive disease (Chronic) Vital Signs Temp Pulse Resp BP Pulse Ox 98.0 F 85 20 H 147/69 H 96 06/20/17 16:47 06/21/17 06:35 06/20/17 16:47 06/21/17 06:35 06/20/17 16:47 Oxygen Delivery Method Room Air Weight: 86.1 kg Body Mass Index (BMI) 32.5 Finger Stick Blood Glucose 193 Sodium 142 mmol/L (136-145) 06/21/17 06:50 Potassium 4.2 mmol/L (3.5-5.1) 06/21/17 06:50 Chloride 107 mmol/L (98-107) 06/21/17 06:50 Carbon Dioxide 27.0 mmol/L (21.0-32.0) 06/21/17 06:50 Anion Gap 8 (5-15) 06/21/17 06:50 BUN 27 mg/dL (7-18) H 06/21/17 06:50 Creatinine 1.35 mg/dL (0.55-1.02) H 06/21/17 06:50 Est GFR (MDRD) Af Amer 50 mL/min (>60) L 06/21/17 06:50 Est GFR (MDRD) Non-Af 41 mL/min (>60) L 06/21/17 06:50 BUN/Creatinine Ratio 20.0 RATIO (10-20) 06/21/17 06:50 Glucose 142 mg/dL (70-110) H 06/21/17 06:50 Assessment/Plan: 1) Pain Oxycodone scheduled and prn for severe pain, gabapentin, lidocaine patch. Diazepam and baclofen for spasm. Continue to monitor daily pain scores, prn medication use. 2) CAD/HTN Amlodipine, metoprolol, isosorbide, ASA, clopidogrel, prn ntg, pravastatin. BP/HR within goal ranges at this time, K wnl, BUN/SCr at baseline. Continue to monitor BP/HR, renal function, electrolytes, prn medication use, s/s chest pain. 3) DM2 Insulin detemir twice daily, insulin aspart 3x daily. Avg BGT > 200. Continue to titrate insulin to goal, monitor BGT, for s/s hyper/hypoglycemia. 4) ID Amox/clav twice daily, post amputation. ID following. Continue to monitor s/s infection. 5) Hypothyroidism Levothyroxine daily. Continue to monitor s/s hyper/hypothyroidism 6) GI Pantoprazole, lactobacillus, Tums as needed, promethazine as needed. Continue to monitor prn medication use, for s/s GI distress. 7) Nutrition Blue, Mg, Glucerna, Fe, ergocalciferol. Continue to monitor clinically. 8) Derm Calmoseptine, clobetasol topically. Continue to monitor clinically. 9) Sleep Melatonin at HS. Continue to monitor for insomnia. 10) DVT PPx Enoxaparin daily. Continue to monitor s/s bleeding/clot. Psychotropic Medications: None Unnecessary Medications: None Bowel Regimen: 11) Loperamide prn, cholestyramine. Continue to monitor prn medication use, for constipation/diarrhea. Date of Note:: 06/21/17 - Provider Comments Provider responsibility: Provider responsible to enter orders to implement recommendations <Adolfo Rush Chi - Last Filed: 06/21/17 14:12> Progress Note - Pharmacy Subjective: [] Objective: Allergies Penicillins Allergy (Severe, Verified 06/07/17 15:35) Unknown atorvastatin calcium [From Lipitor] Allergy (Verified 03/10/17 21:12) Unknown bupropion HCl [From Wellbutrin] Allergy (Verified 03/10/17 21:12) Unknown mannitol [From Reclast] Allergy (Verified 03/10/17 21:12) joint pain, unable to breathe, unable to walk propoxyphene napsylate [From Darvocet-N 100] Allergy (Verified 03/10/17 21:12) Unknown Quinolones Allergy (Verified 03/10/17 21:12) Unknown Tetanus Vaccines and Toxoid [Tetanus Vaccines & Toxoid] Allergy (Verified 03/10/17 21:12) Chest tightness tizanidine Allergy (Verified 03/10/17 21:12) Unknown water for injection,sterile [From Reclast] Allergy (Verified 03/10/17 21:12) joint pain, unable to breathe, unable to walk JOINT PAIN,UNABLE TO BREATHE,UNABLE TO WALK zoledronic acid [From Reclast] Allergy (Verified 03/10/17 21:12) joint pain,unable to breathe, unaable to walk JOINT PAIN,UNABLE TO BREATHE,UNABLE TO WALK pravastatin Adverse Reaction (Severe, Verified 06/07/17 15:36) Myalgias gemfibrozil Adverse Reaction (Intermediate, Verified 06/07/17 15:36) Unknown NSAIDS (Non-Steroidal Anti-Inflamma Adverse Reaction (Verified 03/10/17 21:12) Other Home Medications Medication Instructions Recorded Aspirin [Aspirin, Baby] 81 mg PO DAILY@0800 03/10/17 Clobetasol Propionate/Emoll 1 applic TP BID 03/10/17 [Clobetasol Emollient 0.05% Crm] Clopidogrel Bisulfate [Plavix] 75 mg PO DAILY 03/10/17 Diclofenac Sodium 1 applic TRANSDERM. TID 03/10/17 Ergocalciferol [Vitamin D] 50,000 unit PO Q7D 03/10/17 Levothyroxine Sodium [Levoxyl] 75 mcg PO QHS 03/10/17 Metoprolol Tartrate [Lopressor 50 mg PO BID 03/10/17 (beta marine)] Nitroglycerin [Nitrostat] 0.4 mg SUBLINGUAL Q5M PRN 03/10/17 Pantoprazole Sodium [Protonix] 40 mg PO DAILY 03/10/17 Pravastatin Sodium 40 mg PO DAILY 03/10/17 Menthol/Lanolin/Calamine/Znox 1 applic TOPICAL DAILY 03/11/17 [Calmoseptine Ointment] insulin aspart 100 unit/mL 20 unit SC TIDAC ml 06/07/17 subcutaneous pen isosorbide mononitrate ER 30 mg 30 mg PO BID tab 06/07/17 tablet,extended release 24 hr Amlodipine Besylate [Norvasc] 5 mg PO QHS 06/11/17 Calcium Carbonate [Tums] 500 mg PO Q4H PRN PRN 06/11/17 Cholestyramine (with Sugar) 4 gm PO DAILY 06/11/17 [Cholestyramine Packet] Ferrous Sulfate Syrup 300 mg PO BIDCM 06/11/17 Gabapentin [Neurontin] 300 mg PO QHS 06/11/17 Magnesium Oxide 400 mg PO DINNER 06/11/17 Melatonin 10 mg PO QHS PRN PRN 06/11/17 Promethazine HCl 25 mg PO BID PRN PRN 06/11/17 Cholestyramine/Aspartame 4 gm PO BID PRN 06/15/17 [Cholestyramine Light Packet] Acetaminophen [Tylenol Tablet] 650 mg PO Q6H PRN PRN tablet 06/20/17 Amoxicillin/Potassium Clav 1 each PO BID 06/20/17 [Augmentin 875-125 Tablet] Cyclobenzaprine [Flexeril] 10 mg PO TID PRN PRN tablet 06/20/17 Diazepam [Valium] 2 mg PO TID PRN PRN #6 tab 06/20/17 Enoxaparin [Lovenox] 40 mg SC DAILY@0600 06/20/17 Insulin Detemir [Levemir FlexPen] 20 units SC BREAKFAST 06/20/17 Insulin Detemir [Levemir FlexPen] 30 units SC DINNER 06/20/17 Lactobacillus Acidophilus 1 tablet PO TID 06/20/17 [Acidophilus] Lidocaine [Lidoderm Patch] 1 patch TOPICAL DAILY 06/20/17 Loperamide [Imodium] 2 mg PO Q6H PRN PRN capsule 06/20/17 Oxycodone CR [Oxycontin] 20 mg PO BID 06/20/17 Oxycodone [Oxyir] 5 - 10 mg PO Q4H PRN PRN #12 tab 06/20/17 Current Medications Generic Name Dose Route Start Last Admin Trade Name Freq PRN Reason Stop Dose Admin Acetaminophen 1,000 mg 06/20/17 21:42 06/21/17 12:24 Tylenol PO 1,000 mg Q8H PRN Administration MILD PAIN (1-3/10) Amlodipine Besylate 5 mg 06/20/17 22:00 06/20/17 21:40 Norvasc PO 5 mg QHS [facility] Administration Amoxicillin/Clavulanate Potassium 875 mg 06/21/17 06:00 06/21/17 06:44 Augmentin Tablet PO 875 mg BID [facility] Administration Aspirin 81 mg 06/21/17 08:00 06/21/17 09:28 Aspirin, Baby PO 81 mg DAILY@0800 [facility] Administration Baclofen 10 mg 06/20/17 22:00 06/21/17 13:33 Lioresal PO Not Given TID [facility] Calamine/Phenol 1 applic 06/20/17 22:00 06/21/17 12:23 Calmoseptine Ointment TOPICAL 1 tube 4X/DAY [facility] Administration Protocol Calcium Carbonate 500 mg 06/20/17 18:12 Tums PO Q4H PRN PRN acid reflux Cholestyramine Resin 4 gm 06/20/17 18:12 Questran 4gm Packet PO BID PRN Diarrhea Cholestyramine Resin 4 gm 06/21/17 06:00 06/21/17 07:17 Questran 4gm Packet PO Not Given DAILY [facility] Clobetasol Propionate 1 applic 06/21/17 06:00 06/21/17 07:03 Temovate Ointment TOPICAL Not Given BID [facility] Clopidogrel Bisulfate 75 mg 06/21/17 06:00 06/21/17 06:35 Plavix PO 75 mg DAILY [facility] Administration Diazepam 2 mg 06/20/17 22:00 06/21/17 13:33 Valium PO Not Given TID [facility] Enoxaparin Sodium 40 mg 06/21/17 06:00 06/21/17 06:35 Lovenox SC 40 mg DAILY@0600 [facility] Administration Ergocalciferol 50,000 unit 06/20/17 18:15 06/20/17 21:39 Vitamin D PO 50,000 unit Q7D [facility] Administration Ferrous Sulfate 300 mg 06/21/17 08:00 06/21/17 09:28 Ferrous Sulfate Syrup PO 300 mg BIDCM [facility] Administration Gabapentin 300 mg 06/20/17 22:00 06/20/17 21:39 Neurontin PO 300 mg QHS [facility] Administration Heparin Sodium (Beef Lung) 500 unit 06/21/17 07:44 Heparin 500 Unit/5 Ml (100/Ml) IV UD PRN HEPARIN FLUSH Insulin Aspart 20 units 06/21/17 06:45 06/21/17 12:18 Novolog Flexpen ([facility]) SC 20 u TIDAC [facility] Administration Insulin Detemir 20 units 06/21/17 08:00 06/21/17 09:29 Levemir ([facility]) SC 20 units BREAKFAST [facility] Administration Insulin Detemir 30 units 06/21/17 17:00 Levemir ([facility]) SC DINNER [facility] Isosorbide Mononitrate 30 mg 06/21/17 06:00 06/21/17 06:43 Imdur PO 30 mg BID [facility] Administration Lactobacillus Acidophilus 1 tablet 06/20/17 22:00 06/21/17 13:33 Acidophilus PO 1 tablet TID [facility] Administration Levothyroxine Sodium 75 mcg 06/20/17 22:00 06/20/17 21:40 Synthroid PO 75 mcg QHS [facility] Administration Lidocaine 1 patch 06/21/17 06:00 06/21/17 06:43 Lidoderm Patch TOPICAL 1 patch DAILY [facility] Administration Protocol Loperamide HCl 2 mg 06/20/17 18:12 Imodium PO Q6H PRN PRN Diarrhea Magnesium Oxide 400 mg 06/21/17 17:00 Mag-Ox 400 PO DINNER [facility] Melatonin 10 mg 06/20/17 22:00 06/20/17 23:33 Melatonin PO 10 mg QHS [facility] Administration Metoprolol Tartrate 50 mg 06/21/17 06:00 06/21/17 06:35 Lopressor (Beta Marine) PO 50 mg BID [facility] Administration Nitroglycerin 0.4 mg 06/20/17 18:12 Nitrostat SUBLINGUAL Q5M PRN Chest Pain Nutritional Formula 1 packet 06/21/17 08:00 06/21/17 09:28 Blue - [place] Flavor PO 1 packet BIDCM [facility] Administration Nutritional Formula (Lactose Free) 120 ml 06/21/17 07:45 06/21/17 12:18 Glucerna Shake PO 120 ml TIDCM [facility] Administration Oxycodone HCl 20 mg 06/21/17 06:00 06/21/17 07:05 Oxycontin PO Not Given BID [facility] Oxycodone HCl 10 mg 06/20/17 21:42 06/20/17 23:33 Oxyir PO 10 mg Q4H PRN PRN Administration SEVERE PAIN (6-10/10) Pantoprazole Sodium 40 mg 06/21/17 06:00 06/21/17 06:35 Protonix PO 40 mg DAILY [facility] Administration Pravastatin Sodium 40 mg 06/21/17 06:00 06/21/17 06:35 Pravachol PO 40 mg DAILY [facility] Administration Promethazine HCl 25 mg 06/20/17 18:12 Phenergan PO BID PRN PRN Diarrhea Sodium Chloride 10 - 20 ml 06/21/17 07:44 IV UD PRN PICC FLUSH Tuberculin PPD 5 tu 06/28/17 10:00 Tubersol, Aplisol, Ppd ID 06/28/17 10:01 X1 ONE Problem List (Last Updated 06/07/17 @ 16:07 by Madison Alicea) Stroke (Chronic) Peripheral arterial occlusive disease (Chronic) Vital Signs Temp Pulse Resp BP Pulse Ox 98.0 F 85 20 H 147/69 H 96 06/20/17 16:47 06/21/17 06:35 06/20/17 16:47 06/21/17 06:35 06/20/17 16:47 Oxygen Delivery Method Room Air Weight: 86.1 kg Body Mass Index (BMI) 32.5 Finger Stick Blood Glucose 193 Sodium 142 mmol/L (136-145) 06/21/17 06:50 Potassium 4.2 mmol/L (3.5-5.1) 06/21/17 06:50 Chloride 107 mmol/L (98-107) 06/21/17 06:50 Carbon Dioxide 27.0 mmol/L (21.0-32.0) 06/21/17 06:50 Anion Gap 8 (5-15) 06/21/17 06:50 BUN 27 mg/dL (7-18) H 06/21/17 06:50 Creatinine 1.35 mg/dL (0.55-1.02) H 06/21/17 06:50 Est GFR (MDRD) Af Amer 50 mL/min (>60) L 06/21/17 06:50 Est GFR (MDRD) Non-Af 41 mL/min (>60) L 06/21/17 06:50 BUN/Creatinine Ratio 20.0 RATIO (10-20) 06/21/17 06:50 Glucose 142 mg/dL (70-110) H 06/21/17 06:50 Assessment/Plan: Psychotropic Medications: Unnecessary Medications: Bowel Regimen: - Provider Comments Provider responsibility: Provider responsible to enter orders to implement recommendations Provider Comments to Recommendations by Pharmacy: Agree
--- NOTE | 2017-06-21 13:39 | PHA.CONS_ITS ---
<EyallazaramargoZay Juan Antonio - Last Filed: 06/21/17 13:29> Progress Note - Pharmacy Subjective: [] Objective: Allergies Penicillins Allergy (Severe, Verified 06/07/17 15:35) Unknown atorvastatin calcium [From Lipitor] Allergy (Verified 03/10/17 21:12) Unknown bupropion HCl [From Wellbutrin] Allergy (Verified 03/10/17 21:12) Unknown mannitol [From Reclast] Allergy (Verified 03/10/17 21:12) joint pain, unable to breathe, unable to walk propoxyphene napsylate [From Darvocet-N 100] Allergy (Verified 03/10/17 21:12) Unknown Quinolones Allergy (Verified 03/10/17 21:12) Unknown Tetanus Vaccines and Toxoid [Tetanus Vaccines & Toxoid] Allergy (Verified 21:12) Chest tightness tizanidine Allergy (Verified 03/10/17 21:12) Unknown water for injection,sterile [From Reclast] Allergy (Verified 03/10/17 21:12) joint pain, unable to breathe, unable to walk JOINT PAIN,UNABLE TO BREATHE,UNABLE TO WALK zoledronic acid [From Reclast] Allergy (Verified 03/10/17 21:12) joint pain,unable to breathe, unaable to walk JOINT PAIN,UNABLE TO BREATHE,UNABLE TO WALK pravastatin Adverse Reaction (Severe, Verified 06/07/17 15:36) Myalgias gemfibrozil Adverse Reaction (Intermediate, Verified 06/07/17 15:36) Unknown NSAIDS (Non-Steroidal Anti-Inflamma Adverse Reaction (Verified 03/10/17 21:12) Other Home Medications Medication Instructions Recorded Aspirin [Aspirin, Baby] 81 mg PO DAILY@0800 03/10/17 Clobetasol Propionate/Emoll 1 applic TP BID 03/10/17 [Clobetasol Emollient 0.05% Crm] Clopidogrel Bisulfate [Plavix] 75 mg PO DAILY 03/10/17 Diclofenac Sodium 1 applic TRANSDERM. TID 03/10/17 Ergocalciferol [Vitamin D] 50,000 unit PO Q7D 03/10/17 Levothyroxine Sodium [Levoxyl] 75 mcg PO QHS 03/10/17 Metoprolol Tartrate [Lopressor 50 mg PO BID 03/10/17 (beta marine)] Nitroglycerin [Nitrostat] 0.4 mg SUBLINGUAL Q5M PRN 03/10/17 Pantoprazole Sodium [Protonix] 40 mg PO DAILY 03/10/17 Pravastatin Sodium 40 mg PO DAILY 03/10/17 Menthol/Lanolin/Calamine/Znox 1 applic TOPICAL DAILY 03/11/17 [Calmoseptine Ointment] insulin aspart 100 unit/mL 20 unit SC TIDAC ml 06/07/17 subcutaneous pen isosorbide mononitrate ER 30 mg 30 mg PO BID tab 06/07/17 tablet,extended release 24 hr Amlodipine Besylate [Norvasc] 5 mg PO QHS 06/11/17 Calcium Carbonate [Tums] 500 mg PO Q4H PRN PRN 06/11/17 Cholestyramine (with Sugar) 4 gm PO DAILY 06/11/17 [Cholestyramine Packet] Ferrous Sulfate Syrup 300 mg PO BIDCM 06/11/17 Gabapentin [Neurontin] 300 mg PO QHS 06/11/17 Magnesium Oxide 400 mg PO DINNER 06/11/17 Melatonin 10 mg PO QHS PRN PRN 06/11/17 Promethazine HCl 25 mg PO BID PRN PRN 06/11/17 Cholestyramine/Aspartame 4 gm PO BID PRN 06/15/17 [Cholestyramine Light Packet] Acetaminophen [Tylenol Tablet] 650 mg PO Q6H PRN PRN tablet 06/20/17 Amoxicillin/Potassium Clav 1 each PO BID 06/20/17 [Augmentin 875-125 Tablet] Cyclobenzaprine [Flexeril] 10 mg PO TID PRN PRN tablet 06/20/17 Diazepam [Valium] 2 mg PO TID PRN PRN #6 tab 06/20/17 Enoxaparin [Lovenox] 40 mg SC DAILY@0600 06/20/17 Insulin Detemir [Levemir FlexPen] 20 units SC BREAKFAST 06/20/17 Insulin Detemir [Levemir FlexPen] 30 units SC DINNER 06/20/17 Lactobacillus Acidophilus 1 tablet PO TID 06/20/17 [Acidophilus] Lidocaine [Lidoderm Patch] 1 patch TOPICAL DAILY 06/20/17 Loperamide [Imodium] 2 mg PO Q6H PRN PRN capsule 06/20/17 Oxycodone CR [Oxycontin] 20 mg PO BID 06/20/17 Oxycodone [Oxyir] 5 - 10 mg PO Q4H PRN PRN #12 tab 06/20/17 Current Medications Generic Name Dose Route Start Last Admin Trade Name Freq PRN Reason Stop Dose Admin Acetaminophen 1,000 mg 06/20/17 21:42 06/21/17 12:24 Tylenol PO 1,000 mg Q8H PRN Administration MILD PAIN (1-3/10) Amlodipine Besylate 5 mg 06/20/17 22:00 06/20/17 21:40 Norvasc PO 5 mg QHS [facility] Administration Amoxicillin/Clavulanate Potassium 875 mg 06/21/17 06:00 06/21/17 06:44 Augmentin Tablet PO 875 mg BID [facility] Administration Aspirin 81 mg 06/21/17 08:00 06/21/17 09:28 Aspirin, Baby PO 81 mg DAILY@0800 [facility] Administration Baclofen 10 mg 06/20/17 22:00 06/21/17 06:38 Lioresal PO 10 mg TID [facility] Administration Calamine/Phenol 1 applic 06/20/17 22:00 06/21/17 12:23 Calmoseptine Ointment TOPICAL 1 tube 4X/DAY [facility] Administration Protocol Calcium Carbonate 500 mg 06/20/17 18:12 Tums PO Q4H PRN PRN acid reflux Cholestyramine Resin 4 gm 06/20/17 18:12 Questran 4gm Packet PO BID PRN Diarrhea Cholestyramine Resin 4 gm 06/21/17 06:00 06/21/17 07:17 Questran 4gm Packet PO Not Given DAILY [facility] Clobetasol Propionate 1 applic 06/21/17 06:00 06/21/17 07:03 Temovate Ointment TOPICAL Not Given BID [facility] Clopidogrel Bisulfate 75 mg 06/21/17 06:00 06/21/17 06:35 Plavix PO 75 mg DAILY [facility] Administration Diazepam 2 mg 06/20/17 22:00 06/21/17 07:11 Valium PO 2 mg TID [facility] Administration Enoxaparin Sodium 40 mg 06/21/17 06:00 06/21/17 06:35 Lovenox SC 40 mg DAILY@0600 [facility] Administration Ergocalciferol 50,000 unit 06/20/17 18:15 01/25/18 21:39 Vitamin D PO 50,000 unit Q7D [facility] Administration Ferrous Sulfate 300 mg 06/21/17 08:00 06/21/17 09:28 Ferrous Sulfate Syrup PO 300 mg BIDCM [facility] Administration Gabapentin 300 mg 06/20/17 22:00 06/20/17 21:39 Neurontin PO 300 mg QHS [facility] Administration Heparin Sodium (Beef Lung) 500 unit 06/21/17 07:44 Heparin 500 Unit/5 Ml (100/Ml) IV UD PRN HEPARIN FLUSH Insulin Aspart 20 units 06/21/17 06:45 06/21/17 12:18 Novolog Flexpen ([facility]) SC 20 u TIDAC [facility] Administration Insulin Detemir 20 units 06/21/17 08:00 06/21/17 09:29 Levemir ([facility]) SC 20 units BREAKFAST [facility] Administration Insulin Detemir 30 units 06/21/17 17:00 Levemir ([facility]) SC DINNER [facility] Isosorbide Mononitrate 30 mg 06/21/17 06:00 06/21/17 06:43 Imdur PO 30 mg BID [facility] Administration Lactobacillus Acidophilus 1 tablet 06/20/17 22:00 06/21/17 06:44 Acidophilus PO 1 tablet TID [facility] Administration Levothyroxine Sodium 75 mcg 06/20/17 22:00 06/20/17 21:40 Synthroid PO 75 mcg QHS [facility] Administration Lidocaine 1 patch 06/21/17 06:00 06/21/17 06:43 Lidoderm Patch TOPICAL 1 patch DAILY [facility] Administration Protocol Loperamide HCl 2 mg 06/20/17 18:12 Imodium PO Q6H PRN PRN Diarrhea Magnesium Oxide 400 mg 06/21/17 17:00 Mag-Ox 400 PO DINNER [facility] Melatonin 10 mg 06/20/17 22:00 06/20/17 23:33 Melatonin PO 10 mg QHS [facility] Administration Metoprolol Tartrate 50 mg 06/21/17 06:00 06/21/17 06:35 Lopressor (Beta Marine) PO 50 mg BID [facility] Administration Nitroglycerin 0.4 mg 06/20/17 18:12 Nitrostat SUBLINGUAL Q5M PRN Chest Pain Nutritional Formula 1 packet 06/21/17 08:00 06/21/17 09:28 Blue - [employer] Flavor PO 1 packet BIDCM [facility] Administration Nutritional Formula (Lactose Free) 120 ml 06/21/17 07:45 06/21/17 12:18 Glucerna Shake PO 120 ml TIDCM [facility] Administration Oxycodone HCl 20 mg 06/21/17 06:00 06/21/17 07:05 Oxycontin PO Not Given BID [facility] Oxycodone HCl 10 mg 06/20/17 21:42 06/20/17 23:33 Oxyir PO 10 mg Q4H PRN PRN Administration SEVERE PAIN (6-03/05) Pantoprazole Sodium 40 mg 06/21/17 06:00 06/21/17 06:35 Protonix PO 40 mg DAILY [facility] Administration Pravastatin Sodium 40 mg 06/21/17 06:00 06/21/17 06:35 Pravachol PO 40 mg DAILY [facility] Administration Promethazine HCl 25 mg 06/20/17 18:12 Phenergan PO BID PRN PRN Diarrhea Sodium Chloride 10 - 20 ml 06/21/17 07:44 IV UD PRN PICC FLUSH Tuberculin PPD 5 tu 06/28/17 10:00 Tubersol, Aplisol, Ppd ID 06/28/17 10:01 X1 ONE Problem List (Last Updated 06/07/17 @ 16:07 by Madison Alicea) Stroke (Chronic) Peripheral arterial occlusive disease (Chronic) Vital Signs Temp Pulse Resp BP Pulse Ox 98.0 F 85 20 H 147/69 H 96 06/20/17 16:47 06/21/17 06:35 06/20/17 16:47 06/21/17 06:35 06/20/17 16:47 Oxygen Delivery Method Room Air Weight: 86.1 kg Body Mass Index (BMI) 32.5 Finger Stick Blood Glucose 193 Sodium 142 mmol/L (136-145) 06/21/17 06:50 Potassium 4.2 mmol/L (3.5-5.1) 06/21/17 06:50 Chloride 107 mmol/L (98-107) 06/21/17 06:50 Carbon Dioxide 27.0 mmol/L (21.0-32.0) 06/21/17 06:50 Anion Gap 8 (5-15) 06/21/17 06:50 BUN 27 mg/dL (7-18) H 06/21/17 06:50 Creatinine 1.35 mg/dL (0.55-1.02) H 06/21/17 06:50 Est GFR (MDRD) Af Amer 50 mL/min (>60) L 06/21/17 06:50 Est GFR (MDRD) Non-Af 41 mL/min (>60) L 06/21/17 06:50 BUN/Creatinine Ratio 20.0 RATIO (10-20) 06/21/17 06:50 Glucose 142 mg/dL (70-110) H 06/21/17 06:50 Assessment/Plan: 1) Pain Oxycodone scheduled and prn for severe pain, gabapentin, lidocaine patch. Diazepam and baclofen for spasm. Continue to monitor daily pain scores, prn medication use. 2) CAD/HTN Amlodipine, metoprolol, isosorbide, ASA, clopidogrel, prn ntg, pravastatin. BP/HR within goal ranges at this time, K wnl, BUN/SCr at baseline. Continue to monitor BP/HR, renal function, electrolytes, prn medication use, s/s chest pain. 3) DM2 Insulin detemir twice daily, insulin aspart 3x daily. Avg BGT > 200. Continue to titrate insulin to goal, monitor BGT, for s/s hyper/hypoglycemia. 4) ID Amox/clav twice daily, post amputation. ID following. Continue to monitor s/ s infection. 5) Hypothyroidism Levothyroxine daily. Continue to monitor s/s hyper/hypothyroidism 6) GI Pantoprazole, lactobacillus, Tums as needed, promethazine as needed. Continue to monitor prn medication use, for s/s GI distress. 7) Nutrition Blue, Mg, Glucerna, Fe, ergocalciferol. Continue to monitor clinically. 8) Derm Calmoseptine, clobetasol topically. Continue to monitor clinically. 9) Sleep Melatonin at HS. Continue to monitor for insomnia. 10) DVT PPx Enoxaparin daily. Continue to monitor s/s bleeding/clot. Psychotropic Medications: None Unnecessary Medications: None Bowel Regimen: 11) Loperamide prn, cholestyramine. Continue to monitor prn medication use, for constipation/diarrhea. Date of Note:: 06/21/17 - Provider Comments Provider responsibility: Provider responsible to enter orders to implement recommendations <Adolfo Rush Chi - Last Filed: 06/21/17 14:12> Progress Note - Pharmacy Subjective: [] Objective: Allergies Penicillins Allergy (Severe, Verified 06/07/17 15:35) Unknown atorvastatin calcium [From Lipitor] Allergy (Verified 03/10/17 21:12) Unknown bupropion HCl [From Wellbutrin] Allergy (Verified 03/10/17 21:12) Unknown mannitol [From Reclast] Allergy (Verified 03/10/17 21:12) joint pain, unable to breathe, unable to walk propoxyphene napsylate [From Darvocet-N 100] Allergy (Verified 03/10/17 21:12) Unknown Quinolones Allergy (Verified 03/10/17 21:12) Unknown Tetanus Vaccines and Toxoid [Tetanus Vaccines & Toxoid] Allergy (Verified 21:12) Chest tightness tizanidine Allergy (Verified 03/10/17 21:12) Unknown water for injection,sterile [From Reclast] Allergy (Verified 03/10/17 21:12) joint pain, unable to breathe, unable to walk JOINT PAIN,UNABLE TO BREATHE,UNABLE TO WALK zoledronic acid [From Reclast] Allergy (Verified 03/10/17 21:12) joint pain,unable to breathe, unaable to walk JOINT PAIN,UNABLE TO BREATHE,UNABLE TO WALK pravastatin Adverse Reaction (Severe, Verified 06/07/17 15:36) Myalgias gemfibrozil Adverse Reaction (Intermediate, Verified 06/07/17 15:36) Unknown NSAIDS (Non-Steroidal Anti-Inflamma Adverse Reaction (Verified 03/10/17 21:12) Other Home Medications Medication Instructions Recorded Aspirin [Aspirin, Baby] 81 mg PO DAILY@0800 03/10/17 Clobetasol Propionate/Emoll 1 applic TP BID 03/10/17 [Clobetasol Emollient 0.05% Crm] Clopidogrel Bisulfate [Plavix] 75 mg PO DAILY 03/10/17 Diclofenac Sodium 1 applic TRANSDERM. TID 03/10/17 Ergocalciferol [Vitamin D] 50,000 unit PO Q7D 03/10/17 Levothyroxine Sodium [Levoxyl] 75 mcg PO QHS 03/10/17 Metoprolol Tartrate [Lopressor 50 mg PO BID 03/10/17 (beta marine)] Nitroglycerin [Nitrostat] 0.4 mg SUBLINGUAL Q5M PRN 03/10/17 Pantoprazole Sodium [Protonix] 40 mg PO DAILY 03/10/17 Pravastatin Sodium 40 mg PO DAILY 03/10/17 Menthol/Lanolin/Calamine/Znox 1 applic TOPICAL DAILY 03/11/17 [Calmoseptine Ointment] insulin aspart 100 unit/mL 20 unit SC TIDAC ml 06/07/17 subcutaneous pen isosorbide mononitrate ER 30 mg 30 mg PO BID tab 06/07/17 tablet,extended release 24 hr Amlodipine Besylate [Norvasc] 5 mg PO QHS 06/11/17 Calcium Carbonate [Tums] 500 mg PO Q4H PRN PRN 06/11/17 Cholestyramine (with Sugar) 4 gm PO DAILY 06/11/17 [Cholestyramine Packet] Ferrous Sulfate Syrup 300 mg PO BIDCM 06/11/17 Gabapentin [Neurontin] 300 mg PO QHS 06/11/17 Magnesium Oxide 400 mg PO DINNER 06/11/17 Melatonin 10 mg PO QHS PRN PRN 06/11/17 Promethazine HCl 25 mg PO BID PRN PRN 06/11/17 Cholestyramine/Aspartame 4 gm PO BID PRN 06/15/17 [Cholestyramine Light Packet] Acetaminophen [Tylenol Tablet] 650 mg PO Q6H PRN PRN tablet 06/20/17 Amoxicillin/Potassium Clav 1 each PO BID 06/20/17 [Augmentin 875-125 Tablet] Cyclobenzaprine [Flexeril] 10 mg PO TID PRN PRN tablet 06/20/17 Diazepam [Valium] 2 mg PO TID PRN PRN #6 tab 06/20/17 Enoxaparin [Lovenox] 40 mg SC DAILY@0600 06/20/17 Insulin Detemir [Levemir FlexPen] 20 units SC BREAKFAST 06/20/17 Insulin Detemir [Levemir FlexPen] 30 units SC DINNER 06/20/17 Lactobacillus Acidophilus 1 tablet PO TID 06/20/17 [Acidophilus] Lidocaine [Lidoderm Patch] 1 patch TOPICAL DAILY 06/20/17 Loperamide [Imodium] 2 mg PO Q6H PRN PRN capsule 06/20/17 Oxycodone CR [Oxycontin] 20 mg PO BID 06/20/17 Oxycodone [Oxyir] 5 - 10 mg PO Q4H PRN PRN #12 tab 06/20/17 Current Medications Generic Name Dose Route Start Last Admin Trade Name Freq PRN Reason Stop Dose Admin Acetaminophen 1,000 mg 06/20/17 21:42 06/21/17 12:24 Tylenol PO 1,000 mg Q8H PRN Administration MILD PAIN (1-3/10) Amlodipine Besylate 5 mg 06/20/17 22:00 06/20/17 21:40 Norvasc PO 5 mg QHS [facility] Administration Amoxicillin/Clavulanate Potassium 875 mg 06/21/17 06:00 06/21/17 06:44 Augmentin Tablet PO 875 mg BID [facility] Administration Aspirin 81 mg 06/21/17 08:00 06/21/17 09:28 Aspirin, Baby PO 81 mg DAILY@0800 [facility] Administration Baclofen 10 mg 06/20/17 22:00 06/21/17 13:33 Lioresal PO Not Given TID [facility] Calamine/Phenol 1 applic 06/20/17 22:00 06/21/17 12:23 Calmoseptine Ointment TOPICAL 1 tube 4X/DAY [facility] Administration Protocol Calcium Carbonate 500 mg 06/20/17 18:12 Tums PO Q4H PRN PRN acid reflux Cholestyramine Resin 4 gm 06/20/17 18:12 Questran 4gm Packet PO BID PRN Diarrhea Cholestyramine Resin 4 gm 06/21/17 06:00 06/21/17 07:17 Questran 4gm Packet PO Not Given DAILY [facility] Clobetasol Propionate 1 applic 06/21/17 06:00 06/21/17 07:03 Temovate Ointment TOPICAL Not Given BID [facility] Clopidogrel Bisulfate 75 mg 06/21/17 06:00 06/21/17 06:35 Plavix PO 75 mg DAILY [facility] Administration Diazepam 2 mg 06/20/17 22:00 06/21/17 13:33 Valium PO Not Given TID [facility] Enoxaparin Sodium 40 mg 06/21/17 06:00 06/21/17 06:35 Lovenox SC 40 mg DAILY@0600 [facility] Administration Ergocalciferol 50,000 unit 06/20/17 18:15 06/20/17 21:39 Vitamin D PO 50,000 unit Q7D [facility] Administration Ferrous Sulfate 300 mg 06/21/17 08:00 06/21/17 09:28 Ferrous Sulfate Syrup PO 300 mg BIDCM [facility] Administration Gabapentin 300 mg 06/20/17 22:00 06/20/17 21:39 Neurontin PO 300 mg QHS [facility] Administration Heparin Sodium (Beef Lung) 500 unit 06/21/17 07:44 Heparin 500 Unit/5 Ml (100/Ml) IV UD PRN HEPARIN FLUSH Insulin Aspart 20 units 06/21/17 06:45 06/21/17 12:18 Novolog Flexpen ([facility]) SC 20 u TIDAC [facility] Administration Insulin Detemir 20 units 06/21/17 08:00 06/21/17 09:29 Levemir ([facility]) SC 20 units BREAKFAST [facility] Administration Insulin Detemir 30 units 06/21/17 17:00 Levemir ([facility]) SC DINNER [facility] Isosorbide Mononitrate 30 mg 06/21/17 06:00 06/21/17 06:43 Imdur PO 30 mg BID [facility] Administration Lactobacillus Acidophilus 1 tablet 06/20/17 22:00 06/21/17 13:33 Acidophilus PO 1 tablet TID [facility] Administration Levothyroxine Sodium 75 mcg 06/20/17 22:00 06/20/17 21:40 Synthroid PO 75 mcg QHS [facility] Administration Lidocaine 1 patch 06/21/17 06:00 06/21/17 06:43 Lidoderm Patch TOPICAL 1 patch DAILY [facility] Administration Protocol Loperamide HCl 2 mg 06/20/17 18:12 Imodium PO Q6H PRN PRN Diarrhea Magnesium Oxide 400 mg 06/21/17 17:00 Mag-Ox 400 PO DINNER [facility] Melatonin 10 mg 06/20/17 22:00 06/20/17 23:33 Melatonin PO 10 mg QHS [facility] Administration Metoprolol Tartrate 50 mg 06/21/17 06:00 06/21/17 06:35 Lopressor (Beta Marine) PO 50 mg BID [facility] Administration Nitroglycerin 0.4 mg 06/20/17 18:12 Nitrostat SUBLINGUAL Q5M PRN Chest Pain Nutritional Formula 1 packet 06/21/17 08:00 06/21/17 09:28 Blue - [employer] Flavor PO 1 packet BIDCM [facility] Administration Nutritional Formula (Lactose Free) 120 ml 06/21/17 07:45 06/21/17 12:18 Glucerna Shake PO 120 ml TIDCM [facility] Administration Oxycodone HCl 20 mg 06/21/17 06:00 06/21/17 07:05 Oxycontin PO Not Given BID [facility] Oxycodone HCl 10 mg 06/20/17 21:42 06/20/17 23:33 Oxyir PO 10 mg Q4H PRN PRN Administration SEVERE PAIN (6-10/10) Pantoprazole Sodium 40 mg 06/21/17 06:00 06/21/17 06:35 Protonix PO 40 mg DAILY [facility] Administration Pravastatin Sodium 40 mg 06/21/17 06:00 06/21/17 06:35 Pravachol PO 40 mg DAILY [facility] Administration Promethazine HCl 25 mg 06/20/17 18:12 Phenergan PO BID PRN PRN Diarrhea Sodium Chloride 10 - 20 ml 06/21/17 07:44 IV UD PRN PICC FLUSH Tuberculin PPD 5 tu 06/28/17 10:00 Tubersol, Aplisol, Ppd ID 06/28/17 10:01 X1 ONE Problem List (Last Updated 06/07/17 @ 16:07 by Madison Alicea) Stroke (Chronic) Peripheral arterial occlusive disease (Chronic) Vital Signs Temp Pulse Resp BP Pulse Ox 98.0 F 85 20 H 147/69 H 96 06/20/17 16:47 06/21/17 06:35 06/20/17 16:47 06/21/17 06:35 06/20/17 16:47 Oxygen Delivery Method Room Air Weight: 86.1 kg Body Mass Index (BMI) 32.5 Finger Stick Blood Glucose 193 Sodium 142 mmol/L (136-145) 06/21/17 06:50 Potassium 4.2 mmol/L (3.5-5.1) 06/21/17 06:50 Chloride 107 mmol/L (98-107) 06/21/17 06:50 Carbon Dioxide 27.0 mmol/L (21.0-32.0) 06/21/17 06:50 Anion Gap 8 (5-15) 06/21/17 06:50 BUN 27 mg/dL (7-18) H 06/21/17 06:50 Creatinine 1.35 mg/dL (0.55-1.02) H 06/21/17 06:50 Est GFR (MDRD) Af Amer 50 mL/min (>60) L 06/21/17 06:50 Est GFR (MDRD) Non-Af 41 mL/min (>60) L 06/21/17 06:50 BUN/Creatinine Ratio 20.0 RATIO (10-20) 06/21/17 06:50 Glucose 142 mg/dL (70-110) H 06/21/17 06:50 Assessment/Plan: Psychotropic Medications: Unnecessary Medications: Bowel Regimen: - Provider Comments Provider responsibility: Provider responsible to enter orders to implement recommendations Provider Comments to Recommendations by Pharmacy: Agree
[2017-06-21 15:26] LABS: Bedside Glucose 278 mg/dL (70-110)
--- NOTE | 2017-06-21 15:53 | NURSING ---
wound photo: right foot
--- NOTE | 2017-06-21 15:53 | NURSING ---
wound photo: right foot
[2017-06-21 16:06] VITALS: BP 153/61; PULSE 84; RESP 18; TEMP 36.6; O2SAT 94
[2017-06-21 17:21] LABS: Bedside Glucose 241 mg/dL (70-110)
[2017-06-21 17:55] VITALS: PULSE 84
--- NOTE | 2017-06-21 18:00 | PCM.PROGNOTE ---
Subjective: Patient was seen today for follow up right foot. She is s/p right foot TMA on 06/18/17. She relates she bumps foot in her sleep all the time, she relates this is due to her restless leg syndrome. She relates she is doing her best to keep the foot elevated, and stay off of it. Her was present. Patient was sitting up in chair without foot elevated when I got into the room. - Physical Exam General: Alert, Oriented x3, Cooperative, No apparent distress Extremities: - - Right foot s/p TMA with incision site well coapted with intact suture, there is no necrosis, no blisters seen, no streaking, no cellulitis seen; there is edema to the foot c/w normal post op course, and ecchymosis present to the dorsal foot. Foot appears to be healing well at this point. Vital Signs Temp Pulse Resp BP Pulse Ox 97.9 F 84 18 153/61 H 94 06/21/17 16:06 06/21/17 17:55 06/21/17 16:06 06/21/17 16:06 06/21/17 16:06 Oxygen Delivery Method Room Air Weight: 86.1 kg Body Mass Index (BMI) 32.5 Finger Stick Blood Glucose 193 Intake and Output for Last 24 Hours 06/19/17 06/20/17 06/21/17 23:59 23:59 23:59 Intake Total 240 / 240 360 / 360 Balance 240 / 240 360 / 360 Laboratory Tests Past 24 Hrs 06/21/17 06/21/17 06:50 06:50 WBC 6.5 RBC 3.59 L Hgb 9.4 L Hct 30.2 L MCV 84.1 MCH 26.2 L MCHC 31.1 L RDW 15.5 H RDW Differential 48.0 H Plt Count 227 MPV 8.7 Immature Gran % (Auto) 0.300 Neut % (Auto) 53.4 Lymph % (Auto) 28.7 [place] % (Auto) 11.7 H Eos % (Auto) 5.7 H Baso % (Auto) 0.2 Absolute Neuts (auto) 3.5 Absolute Lymphs (auto) 1.87 Total Counted Not Reportable Sodium 142 Potassium 4.2 Chloride 107 Carbon Dioxide 27.0 Anion Gap 8 BUN 27 H Creatinine 1.35 H Estim Creat Clear Calc 33.48 Est GFR (MDRD) Af Amer 50 L Est GFR (MDRD) Non-Af 41 L BUN/Creatinine Ratio 20.0 Glucose 142 H Calcium 8.8 POC Glucose 06/21/17 06/21/17 06/21/17 21:07 17:10 15:22 POC Glucose 366 H 241 H 278 H 06/21/17 06/21/17 06/20/17 11:53 06:49 23:45 POC Glucose 204 H 140 H 321 H Assessment/Plan s/p right transmetatarsal amputation on 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 Patient on Augmentin per Infectious Disease at this time, new clearance fragments of the third metatarsal were obtained during surgery and the pathology microbiology results are still pending. Patient to keep right lower extremity/foot elevated at much as possible. To maintain a strict nonweightbearing status the right lower extremity with the use of an assistive device. To keep the dressing clean, dry, and intact at this time. Nutritional optimization with controlled blood sugars and Blue supplementation. All of patient's questions were answered Will continue to closely follow this patient.
--- NOTE | 2017-06-21 18:10 | NURSING ---
R' UPSET ABOUT MECHANICAL SOFT DIET. CALLED DR. ZULUAGA-ORDERED REGULAR DIET (R' REQUESTING VEGGIES BE COOKED AND LETTUCE SHREDDED BUT EVERYTHING ELSE REGULAR CONSISTENCY). OK PER DR. ZULUAGA.
--- NOTE | 2017-06-21 18:45 | NURSING ---
Dr. Espino here to see pt
[2017-06-21 21:11] LABS: Bedside Glucose 366 mg/dL (70-110)
[2017-06-21] MEDS: amLODIPine 5 MG Tablet PO (22:18)
[2017-06-21] MEDS: Levothyroxine 75 MCG Tablet PO (22:18)
[2017-06-21] MEDS: 0.9% NaCl PICC Flush IV (22:20)
[2017-06-22] MEDS: oxyCODONE 5 MG Tablet 10 MG PO ×2 (02:07→21:30)
[2017-06-22] MEDS: Famotidine 20 MG Tablet 40 MG PO (05:46)
[2017-06-22] MEDS: Pravastatin 40 MG Tablet PO (05:46)
[2017-06-22] MEDS: Clopidogrel Bisulfate 75 MG Tablet PO (05:46)
[2017-06-22 05:47] VITALS: BP 126/55; PULSE 92
[2017-06-22] MEDS: Enoxaparin 40 MG/0.4 ML Syringe SC (05:47)
[2017-06-22] MEDS: Amox/Clavulanate 875 MG Tablet PO ×2 (05:47→18:08)
[2017-06-22] MEDS: Metoprolol Tartrate 50 MG Tablet PO ×2 (05:47→18:08)
[2017-06-22] MEDS: Isosorbide Mononitrate 30 MG Tablet PO ×2 (05:47→18:08)
[2017-06-22] MEDS: Menthol/Lanolin/Calamine/Znox 113 GM Tube 1 APPLIC TOPICAL ×4 (05:51→21:31)
[2017-06-22 06:36] LABS: Bedside Glucose 279 mg/dL (70-110)
[2017-06-22] MEDS: Aspirin 81 MG TAB.CHEW PO (08:20)
[2017-06-22] MEDS: Iron Polysaccharide Complex 150 MG CAPSULE PO (08:20)
[2017-06-22] MEDS: Glucerna Shake 120 ML LIQUID PO ×3 (08:24→18:07)
[2017-06-22] MEDS: 0.9% NaCl PICC Flush IV ×2 (08:26→21:34)
[2017-06-22 11:31] LABS: Bedside Glucose 153 mg/dL (70-110)
[2017-06-22 15:42] VITALS: BP 175/65; PULSE 90; RESP 20; TEMP 36.9; O2SAT 97
[2017-06-22 16:01] LABS: Bedside Glucose 91 mg/dL (70-110)
[2017-06-22 16:55] LABS: Bedside Glucose 145 mg/dL (70-110)
[2017-06-22 18:08] VITALS: PULSE 78
[2017-06-22 20:56] LABS: Bedside Glucose 194 mg/dL (70-110)
[2017-06-22] MEDS: Levothyroxine 75 MCG Tablet PO (21:30)
[2017-06-22] MEDS: amLODIPine 5 MG Tablet PO (21:30)
[2017-06-22] MEDS: Nystatin Powder 15gm Bottle 1 APPLIC TOPICAL (21:31)
[2017-06-23] MEDS: Nystatin Powder 15gm Bottle 1 APPLIC TOPICAL ×2 (06:20→21:20)
[2017-06-23] MEDS: Famotidine 20 MG Tablet 40 MG PO (06:21)
[2017-06-23] MEDS: Menthol/Lanolin/Calamine/Znox 113 GM Tube 1 APPLIC TOPICAL ×4 (06:21→21:19)
[2017-06-23] MEDS: Isosorbide Mononitrate 30 MG Tablet PO ×2 (06:21→17:33)
[2017-06-23] MEDS: Amox/Clavulanate 875 MG Tablet PO ×2 (06:21→17:33)
[2017-06-23] MEDS: Enoxaparin 40 MG/0.4 ML Syringe SC (06:21)
[2017-06-23] MEDS: Clopidogrel Bisulfate 75 MG Tablet PO (06:22)
[2017-06-23] MEDS: Pravastatin 40 MG Tablet PO (06:22)
[2017-06-23 06:23] VITALS: PULSE 83
[2017-06-23] MEDS: Metoprolol Tartrate 50 MG Tablet PO ×2 (06:23→17:33)
[2017-06-23 06:56] LABS: Bedside Glucose 151 mg/dL (70-110)
[2017-06-23] MEDS: diazePAM 2 MG Tablet PO ×2 (08:00→21:57)
--- NOTE | 2017-06-23 08:00 | NURSING ---
PT VERY UPSET
--- NOTE | 2017-06-23 08:00 | NURSING ---
PT VERY UPSET THIS AM, C/O SEVERE HEARTBURN AND BACK SPASMS. YOU CALL DR ZULUAGA AND TELL HIM TO COME IN HERE AND FIX MY BACK, HE CHANGED MY MEDS AROUND AND I HAVE BEEN ON THESE MEDS FOR [address] ZULUAGA NOTIFIED AND UPDATED ON PT NORMALLY TAKES PROTONIX INSTEAD OF PEPCID DAILY. EXPLAINED THAT NIGHT STAFF DID NOT ADMINISTER MEDS DURING NIGHT D/T PT SLEEPING AND VERY LETHARGIC YESTERDAY. NEW ORDER TO MAKE VALIUM TID PRN AND CHANGE PEPCID TO PROTONIX. ALSO BLOOD SUGAR 151, NEW ORDER TO HOLD NOVOLOG THIS AM. WILL CONTINUE TO MONITOR BLOOD SUGARS. EXPRESSED TO PT THAT SHE NEEDS TO STAY SITTING UP AFTER EATING MEALS TO PREVENT ACID REFLUX, PT DOES LAY FLAT IN BED ALOT, NEEDS MUCH ENCOURAGEMENT.
[2017-06-23] MEDS: Pantoprazole Sodium 40 MG Tablet PO (08:01)
[2017-06-23] MEDS: Aspirin 81 MG TAB.CHEW PO (08:02)
[2017-06-23] MEDS: 0.9% NaCl PICC Flush IV ×2 (08:05→21:52)
[2017-06-23 11:20] LABS: Bedside Glucose 374 mg/dL (70-110)
[2017-06-23] MEDS: Glucerna Shake 120 ML LIQUID PO (11:45)
[2017-06-23 16:00] VITALS: BP 146/59; PULSE 81; RESP 20; TEMP 36.6; O2SAT 94
[2017-06-23 17:20] LABS: Bedside Glucose 141 mg/dL (70-110)
[2017-06-23 17:33] VITALS: PULSE 80
[2017-06-23] MEDS: Levothyroxine 75 MCG Tablet PO (21:18)
[2017-06-23] MEDS: amLODIPine 5 MG Tablet PO (21:18)
[2017-06-23 21:27] LABS: Bedside Glucose 238 mg/dL (70-110)
[2017-06-24] MEDS: Menthol/Lanolin/Calamine/Znox 113 GM Tube 1 APPLIC TOPICAL ×4 (06:26→21:59)
[2017-06-24] MEDS: Pravastatin 40 MG Tablet PO (06:27)
[2017-06-24] MEDS: Clopidogrel Bisulfate 75 MG Tablet PO (06:27)
[2017-06-24] MEDS: Isosorbide Mononitrate 30 MG Tablet PO ×2 (06:27→17:44)
[2017-06-24] MEDS: Pantoprazole Sodium 40 MG Tablet PO (06:27)
[2017-06-24] MEDS: Nystatin Powder 15gm Bottle 1 APPLIC TOPICAL ×2 (06:27→22:00)
[2017-06-24] MEDS: Enoxaparin 40 MG/0.4 ML Syringe SC (06:28)
[2017-06-24 06:41] LABS: Bedside Glucose 153 mg/dL (70-110)
[2017-06-24] MEDS: oxyCODONE 5 MG Tablet 10 MG PO (08:34)
[2017-06-24] MEDS: Ferrous Sulfate 300 MG/5 ML UDC PO (08:35)
[2017-06-24] MEDS: Aspirin 81 MG TAB.CHEW PO (08:35)
[2017-06-24 10:29] VITALS: BP 130/68; PULSE 93
[2017-06-24] MEDS: Metoprolol Tartrate 50 MG Tablet PO ×2 (10:29→17:45)
[2017-06-24] MEDS: Amox/Clavulanate 875 MG Tablet PO ×2 (10:29→17:44)
[2017-06-24 11:05] LABS: Bedside Glucose 167 mg/dL (70-110)
[2017-06-24] MEDS: Glucerna Shake 120 ML LIQUID PO (12:08)
[2017-06-24 16:00] VITALS: BP 153/49; PULSE 89; RESP 18; TEMP 36.4; O2SAT 95
[2017-06-24 17:11] LABS: Bedside Glucose 106 mg/dL (70-110)
[2017-06-24 17:45] VITALS: BP 153/49; PULSE 89
[2017-06-24 21:56] LABS: Bedside Glucose 308 mg/dL (70-110)
[2017-06-24] MEDS: amLODIPine 5 MG Tablet PO (21:59)
[2017-06-24] MEDS: diazePAM 2 MG Tablet PO (21:59)
[2017-06-24] MEDS: Levothyroxine 75 MCG Tablet PO (21:59)
[2017-06-25] MEDS: Enoxaparin 40 MG/0.4 ML Syringe SC (06:27)
[2017-06-25] MEDS: Menthol/Lanolin/Calamine/Znox 113 GM Tube 1 APPLIC TOPICAL ×3 (06:28→21:26)
[2017-06-25] MEDS: Pantoprazole Sodium 40 MG Tablet PO (06:28)
[2017-06-25] MEDS: Nystatin Powder 15gm Bottle 1 APPLIC TOPICAL ×2 (06:28→21:26)
[2017-06-25] MEDS: Isosorbide Mononitrate 30 MG Tablet PO ×2 (06:34→18:00)
[2017-06-25 06:35] VITALS: BP 152/55; PULSE 85
[2017-06-25] MEDS: Pravastatin 40 MG Tablet PO (06:35)
[2017-06-25] MEDS: Amox/Clavulanate 875 MG Tablet PO ×2 (06:35→18:00)
[2017-06-25] MEDS: Metoprolol Tartrate 50 MG Tablet PO ×2 (06:35→18:01)
[2017-06-25] MEDS: Clopidogrel Bisulfate 75 MG Tablet PO (06:35)
[2017-06-25 07:21] LABS: Bedside Glucose 159 mg/dL (70-110)
[2017-06-25] MEDS: Aspirin 81 MG TAB.CHEW PO (08:08)
--- NOTE | 2017-06-25 08:16 | NURSING ---
RESTING IN BED. REPORTS GENERALIZED PAIN- SO BAD I CAN'T EVEN MOVE MY FINGERS. REVIEWED PAIN MEDS W/PT- RECEIVED OXYCONTIN AT 0630. OFFERED TYLENOL-PT REFUSES THEN STATES SHE HAS A HEADACHE BUT CONTINUES TO REFUSE TYLENOL. REQUESTING ROXANOL-WILL SPEAK TO DR. EMERSON VERY SWEATY-IS BUNDLED IN MULT BLANKETS AND SLEEPING ON HEATING PAD. REQUESTING TO SPEAK TO DR-NOTE LEFT INFORMING
[2017-06-25] MEDS: Ketorolac 60 MG/2 ML Vial IM (10:44)
[2017-06-25] MEDS: Orphenadrine 60 MG/2 ML Ampul IM (10:44)
[2017-06-25 11:36] LABS: Bedside Glucose 123 mg/dL (70-110)
--- NOTE | 2017-06-25 13:03 | NURSING ---
Insulin held at this time per resident request. resident Blood sugar before lunch was 123 and she states she only ate a couple bites of fruit. Will update Joyce MADISON regarding this. resident working in therapy at this time.
[2017-06-25 13:25] LABS: Bedside Glucose 189 mg/dL (70-110)
[2017-06-25] MEDS: Glucerna Shake 120 ML LIQUID PO (13:26)
--- NOTE | 2017-06-25 14:19 | NURSING ---
Dr Magana in to assess residents foot.
[2017-06-25] MEDS: Ferrous Sulfate 300 MG/5 ML UDC PO (14:51)
[2017-06-25] MEDS: 0.9% NaCl PICC Flush IV ×2 (14:55→21:22)
[2017-06-25 16:17] VITALS: BP 115/69; PULSE 68; RESP 18; TEMP 36.6; O2SAT 93
--- NOTE | 2017-06-25 16:22 | PCM.PROGNOTE ---
Subjective: This 72-year-old female seen bedside postoperative right transmetatarsal amputation. She denies foot pain. She denies fever, chill, nausea, vomiting, calf pain. She is watching TV at this time. - Physical Exam General: Alert, Oriented x3, Cooperative Extremities: No cyanosis, Capillary Refill Less than 3 Seconds - Dorsal and plantar transmetatarsal amputation flap site, No Calf Tenderness - Negative Claudio and Elizondo sign bilateral, Diminished Peripheral Pulses - Dorsalis pedis pulse right foot, Edema - Minimal right foot Skin: Incision - Well aligned and coapted to right surgical site without any gapping or necrosis. There is no purulence, no odor, no erythema, no streaking. Musculoskeletal: No Tenderness to Palpation of Joints or Extremities, Muscle Wasting, - - Right transmetatarsal amputation stump is intact Neurological: - - Lack of epicritic sensation light touch right lower extremity Psych/Mental Status: Normal Affect, Appropriate Vital Signs Temp Pulse Resp BP Pulse Ox 97.8 F 68 18 115/69 93 06/25/17 16:17 06/25/17 16:17 06/25/17 16:17 06/25/17 16:17 06/25/17 16:17 Oxygen Delivery Method Room Air Weight: 86.1 kg Body Mass Index (BMI) 32.5 Finger Stick Blood Glucose 193 Intake and Output for Last 24 Hours 06/23/17 06/24/17 06/25/17 23:59 23:59 23:59 Intake Total 480 / 480 220 / 220 480 / 480 Balance 480 / 480 220 / 220 480 / 480 POC Glucose 06/25/17 06/25/17 06/25/17 13:21 11:28 06:29 POC Glucose 189 H 123 H 159 H 06/24/17 06/24/17 21:51 16:56 POC Glucose 308 H 106 Assessment/Plan s/p right transmetatarsal amputation on 06/18/17 secondary to osteomyelitis, chronic ulcer, abscess, and residual forefoot deformities including previous amputation that hammertoes Diabetes with neuropathy A new dressing of Betadine to incision site with overlying Adaptic, gauze, Kerlix were applied with a well-padded posterior mold secured by shree bandages was applied again this afternoo;n. Patient on Augmentin per Infectious Disease at this time, new clearance fragments of the third metatarsal were obtained during surgery and the pathology results are still pending. The microbiology results demonstrate rare corynebacterium. This patient was advised to keep right lower extremity/foot elevated at much as possible. To maintain a strict nonweightbearing status the right lower extremity with the use of an assistive device. To keep the dressing clean, dry, and intact at this time. Nutritional optimization with controlled blood sugars and Blue supplementation. All of patient's questions were answered Will continue to closely follow this patient while in the transitional care unit. Medical management and DVT prophylaxis per primary team. Ivanna Magana, [facility] [phone]
[2017-06-25 17:11] LABS: Bedside Glucose 103 mg/dL (70-110)
[2017-06-25 18:01] VITALS: PULSE 68
--- NOTE | 2017-06-25 21:13 | NURSING ---
Pt c/o vomiting and feeling sick all evening. Pt refusing any nonpharmacological interventions at this time. Dr. Rush aware, and new order for phenergan 25mg q6h PRN. Will continue to monitor.
[2017-06-25] MEDS: Levothyroxine 75 MCG Tablet PO (21:22)
[2017-06-25] MEDS: amLODIPine 5 MG Tablet PO (21:22)
[2017-06-25 21:35] LABS: Bedside Glucose 368 mg/dL (70-110)
[2017-06-26] MEDS: diazePAM 2 MG Tablet PO ×2 (02:15→20:53)
[2017-06-26] MEDS: oxyCODONE 5 MG Tablet 10 MG PO (03:40)
--- NOTE | 2017-06-26 03:55 | NURSING ---
Addendum entered by Amy Jerez 06/26/17 05:46: Pt denies any chest pain at this time and states that shes feeling much better. Original Note: Pt called out to have someone help her with getting a drink. Upon entering room, pt was resting in bed. Pt c/o not being able to use her arms to move her head up in the bed or hold her drink and the valium that was given prior did not help with my back spasms. After assisting pt to get a drink, pt said why has it taken so long for me to get a pain med tonight? Explained to pt that she had not asked for a pain med all night and that I could get her one. Pt very upset and said can't you tell I'm in pain? and then started to moan in pain. PRN oxyir given pt for pain in foot and back. After receiving pain meds, pt c/o having chest pain. Vitals were taken (bp 159/66, HR 114) and offered the SL nitro that was ordered for her. When given her the pill, pt got very upset that I was giving her the SL nitro and not her spray bottle nitro that she has on her bedside table. Repositioned legs and pt denied any other needs at this time. Will continue to monitor.
[2017-06-26 05:25] VITALS: BP 155/59; PULSE 115
[2017-06-26] MEDS: Metoprolol Tartrate 50 MG Tablet PO ×2 (05:25→20:43)
[2017-06-26] MEDS: Pravastatin 40 MG Tablet PO (05:25)
[2017-06-26] MEDS: Clopidogrel Bisulfate 75 MG Tablet PO (05:25)
[2017-06-26] MEDS: Pantoprazole Sodium 40 MG Tablet PO (05:25)
[2017-06-26] MEDS: Isosorbide Mononitrate 30 MG Tablet PO ×2 (05:26→20:39)
[2017-06-26] MEDS: Enoxaparin 40 MG/0.4 ML Syringe SC (05:26)
[2017-06-26] MEDS: Amox/Clavulanate 875 MG Tablet PO ×2 (05:26→20:38)
[2017-06-26] MEDS: Nystatin Powder 15gm Bottle 1 APPLIC TOPICAL ×2 (05:39→20:43)
[2017-06-26] MEDS: Menthol/Lanolin/Calamine/Znox 113 GM Tube 1 APPLIC TOPICAL ×2 (05:39→20:43)
[2017-06-26 07:00] LABS: Bedside Glucose 217 mg/dL (70-110)
[2017-06-26] MEDS: Aspirin 81 MG TAB.CHEW PO (08:19)
[2017-06-26] MEDS: Ferrous Sulfate 300 MG/5 ML UDC PO (08:19)
[2017-06-26] MEDS: 0.9% NaCl PICC Flush IV ×2 (08:30→12:07)
--- NOTE | 2017-06-26 10:49 | CASEMGMT ---
Plan of care meeting held. Resident present as well as resident spouse. No discharge date set at this time. Resident to continue with further care and treatment on the Transitional Care Unit. Resident does have an insurance update due on this day. Resident plans to discharge home with spouse. Support given. Will continue to follow. Nika SALAZAR, FAMILY MEDICINE CHAIR
[2017-06-26 11:16] LABS: Bedside Glucose 238 mg/dL (70-110)
[2017-06-26 12:38] LABS: Erythrocyte Sedimentation Rate 87 mm/hr (0-30)
--- NOTE | 2017-06-26 14:00 | CASEMGMT ---
Insurance Clinical information faxed. Pending continued stay approval at this time. Auth#[id number] Nika SALAZAR, ENGINEERING WRITER
[2017-06-26 14:43] VITALS: TEMP 37.1
--- NOTE | 2017-06-26 14:46 | NURSING ---
PT UP IN CHAIR, C/O FEELING CHILLED, SHAKING AND DRY HEAVING. STATES SHE IS NOT ABLE TO KEEP ANYTHING DOWN AT THIS TIME, REFUSED PAIN MEDS AND PHENERGAN AT THIS TIME. ASSISTED TO LIE DOWN IN BED, COOL WASHCLOTH ON FOREHEAD. PT STATES SHE JUST WANTS TO REST AT THIS TIME. FAMILY AT BEDSIDE.
[2017-06-26 16:00] VITALS: BP 160/100; PULSE 120; RESP 22; TEMP 36.4; O2SAT 94
[2017-06-26 17:11] LABS: Bedside Glucose 116 mg/dL (70-110)
[2017-06-26 20:21] LABS: Bedside Glucose 141 mg/dL (70-110)
--- NOTE | 2017-06-26 20:34 | NURSING ---
Dr Rush notified of pt not eating dinner this evening, blood sugar 141. Orders to give half dose of Levemir. Pt also drowsy and lethargic this evening, orders to hold daysi oxycontin.
[2017-06-26 20:43] VITALS: BP 146/77; PULSE 120
[2017-06-26] MEDS: amLODIPine 5 MG Tablet PO (21:28)
[2017-06-26] MEDS: Levothyroxine 75 MCG Tablet PO (21:28)
[2017-06-26 21:36] LABS: Bedside Glucose 170 mg/dL (70-110)
[2017-06-27 05:48] VITALS: BP 124/55; PULSE 86
[2017-06-27] MEDS: Metoprolol Tartrate 50 MG Tablet PO ×2 (05:48→17:46)
[2017-06-27] MEDS: Nystatin Powder 15gm Bottle 1 APPLIC TOPICAL ×2 (05:48→21:19)
[2017-06-27] MEDS: Pantoprazole Sodium 40 MG Tablet PO (05:48)
[2017-06-27] MEDS: Menthol/Lanolin/Calamine/Znox 113 GM Tube 1 APPLIC TOPICAL ×4 (05:48→21:19)
[2017-06-27] MEDS: Pravastatin 40 MG Tablet PO (05:48)
[2017-06-27] MEDS: Isosorbide Mononitrate 30 MG Tablet PO ×2 (05:48→17:46)
[2017-06-27] MEDS: Amox/Clavulanate 875 MG Tablet PO ×2 (05:48→17:45)
[2017-06-27] MEDS: Clopidogrel Bisulfate 75 MG Tablet PO (05:48)
[2017-06-27] MEDS: Enoxaparin 40 MG/0.4 ML Syringe SC (05:48)
[2017-06-27] MEDS: 0.9% NaCl PICC Flush IV ×3 (05:55→21:20)
[2017-06-27 06:52] LABS: Bedside Glucose 183 mg/dL (70-110)
[2017-06-27] MEDS: Aspirin 81 MG TAB.CHEW PO (08:21)
[2017-06-27] MEDS: Ferrous Sulfate 300 MG/5 ML UDC PO (08:21)
--- NOTE | 2017-06-27 10:21 | CASEMGMT ---
Insurance Continued stay approved with next update due on 07/04/17. Auth#[id number] Nika SALAZAR, DRILL PRESS OPERATOR HELPER
--- NOTE | 2017-06-27 10:55 | CASEMGMT ---
Brief interview for mental status (BIMS) and resident mood interview (PHQ-9) completed on this day. BIMS score 14/15. PHQ-9 score 10/20
[2017-06-27 11:00] LABS: Bedside Glucose 249 mg/dL (70-110)
[2017-06-27] MEDS: Glucerna Shake 120 ML LIQUID PO ×2 (11:37→17:45)
[2017-06-27] MEDS: diazePAM 2 MG Tablet PO (15:25)
[2017-06-27 16:00] VITALS: BP 148/55; PULSE 85; RESP 22; TEMP 36.4; O2SAT 98
[2017-06-27 17:06] LABS: Bedside Glucose 268 mg/dL (70-110)
[2017-06-27 17:46] VITALS: PULSE 85
[2017-06-27 21:16] LABS: Bedside Glucose 326 mg/dL (70-110)
[2017-06-27] MEDS: amLODIPine 5 MG Tablet PO (21:20)
[2017-06-27] MEDS: Levothyroxine 75 MCG Tablet PO (21:20)
[2017-06-28] MEDS: 0.9% NaCl PICC Flush IV (06:06)
[2017-06-28] MEDS: Menthol/Lanolin/Calamine/Znox 113 GM Tube 1 APPLIC TOPICAL ×2 (06:06→21:37)
[2017-06-28] MEDS: Nystatin Powder 15gm Bottle 1 APPLIC TOPICAL ×2 (06:07→21:36)
[2017-06-28] MEDS: oxyCODONE 5 MG Tablet 10 MG PO (06:20)
[2017-06-28 06:22] LABS: Bedside Glucose 189 mg/dL (70-110)
[2017-06-28 06:44] LABS: Absolute Lymphocyte Count 1.75 X10^3/ul (0.83-4.51); Absolute Neutrophil Count 2.4 X10^3/uL (2.0-7.7); Basophil# 0.02 X10^3/uL; Basophil% 0.4 % (0-1); Eosinophil# 0.25 X10^3/uL; Eosinophils% 4.9 % (0-5); Hematocrit 31.6 % (37-47); Hemoglobin 9.7 g/dl (12.0-15.0); Lymphocyte # 1.75 X10^3/ul (4.0); Mean Corp Hgb Conc 30.7 g/gl (32-36); Mean Corpuscular Hgb 25.6 pg (27.0-32.0); Mean Corpuscular Volume 83.4 fL (81-99); Mean Platelet Vol. 8.9 fl (6.2-12.0); Monocyte# 0.69 X10^3/uL; Monocyte% 13.4 % (0-10); Neutrophil # 2.43 X10^3/uL (2.7-7.7); Neutrophil % 47.1 % (47-70); Platelet Count 235 K/mm3 (150-450); RBC Distribution Width CV 15.3 % (11.6-14.6); RBC Distribution Width SD 46.7 fl (35.1-43.9); Red Blood Count 3.79 M/mm3 (4.2-5.4); White Blood Count 5.2 K/mm3 (4.4-11.0)
[2017-06-28 06:46] LABS: POSITIVE COUNT NO; POSITIVE DIFFERENTIAL NO; POSITIVE MORPHOLOGY NO
[2017-06-28 07:18] LABS: Anion Gap 9 (5-15); BUN 42 mg/dL (7-18); Calcium,Total 8.7 mg/dL (8.5-10.1); Chloride 106 mmol/L (98-107); Creatinine, Serum 1.45 mg/dL (0.55-1.02); EST Glomerular Filtration Rate 38 mL/min (>60); Est Glom Filt Rate - Afr Amer 46 mL/min (>60); Estimated Creatinine Clearance 31.17 ml/min; Glucose 203 mg/dL (70-110); Potassium 4.2 mmol/L (3.5-5.1); Sodium Level 140 mmol/L (136-145)
--- NOTE | 2017-06-28 08:13 | NURSING ---
wound photo: right foot
--- NOTE | 2017-06-28 08:14 | NURSING ---
wound photo: right foot
[2017-06-28] MEDS: Pantoprazole Sodium 40 MG Tablet PO (08:40)
[2017-06-28] MEDS: Clopidogrel Bisulfate 75 MG Tablet PO (08:40)
[2017-06-28] MEDS: Aspirin 81 MG TAB.CHEW PO (08:40)
[2017-06-28] MEDS: Pravastatin 40 MG Tablet PO (08:40)
[2017-06-28 08:41] VITALS: PULSE 96
[2017-06-28] MEDS: Enoxaparin 40 MG/0.4 ML Syringe SC (08:41)
[2017-06-28] MEDS: Amox/Clavulanate 875 MG Tablet PO ×2 (08:41→21:36)
[2017-06-28] MEDS: Metoprolol Tartrate 50 MG Tablet PO ×2 (08:41→17:46)
[2017-06-28] MEDS: Ferrous Sulfate 300 MG/5 ML UDC PO (08:43)
[2017-06-28] MEDS: Isosorbide Mononitrate 30 MG Tablet PO ×2 (10:46→17:47)
[2017-06-28] MEDS: Tuberculin,Purif.prot.deriv. 50 TU/ML Vial 5 ML ID (10:47)
[2017-06-28 11:30] LABS: Bedside Glucose 238 mg/dL (70-110)
[2017-06-28] MEDS: Glucerna Shake 120 ML LIQUID PO (12:00)
[2017-06-28 16:00] VITALS: BP 132/50; PULSE 75; RESP 20; TEMP 36.4; O2SAT 97
[2017-06-28 17:22] LABS: Bedside Glucose 188 mg/dL (70-110)
[2017-06-28 17:46] VITALS: BP 132/50; PULSE 75
--- NOTE | 2017-06-28 17:55 | NURSING ---
Dr. Rush reviewed labs, NNO
[2017-06-28 21:26] LABS: Bedside Glucose 200 mg/dL (70-110)
[2017-06-28] MEDS: amLODIPine 5 MG Tablet PO (21:36)
[2017-06-28] MEDS: Levothyroxine 75 MCG Tablet PO (21:36)
[2017-06-29] MEDS: Nystatin Powder 15gm Bottle 1 APPLIC TOPICAL ×2 (06:37→20:40)
[2017-06-29] MEDS: Menthol/Lanolin/Calamine/Znox 113 GM Tube 1 APPLIC TOPICAL ×2 (06:37→20:40)
[2017-06-29] MEDS: diazePAM 2 MG Tablet PO ×2 (06:41→21:23)
[2017-06-29 06:56] LABS: Bedside Glucose 140 mg/dL (70-110)
[2017-06-29] MEDS: Glucerna Shake 120 ML LIQUID PO ×2 (10:34→17:53)
[2017-06-29] MEDS: Enoxaparin 40 MG/0.4 ML Syringe SC (10:36)
[2017-06-29] MEDS: Aspirin 81 MG TAB.CHEW PO (10:37)
[2017-06-29] MEDS: Amox/Clavulanate 875 MG Tablet PO ×2 (10:37→20:35)
[2017-06-29] MEDS: Clopidogrel Bisulfate 75 MG Tablet PO (10:37)
[2017-06-29 10:38] VITALS: BP 141/58; PULSE 78
[2017-06-29] MEDS: Metoprolol Tartrate 50 MG Tablet PO ×2 (10:38→17:54)
[2017-06-29] MEDS: Isosorbide Mononitrate 30 MG Tablet PO ×2 (10:38→17:53)
[2017-06-29] MEDS: Pravastatin 40 MG Tablet PO (10:42)
[2017-06-29] MEDS: Pantoprazole Sodium 40 MG Tablet PO (10:42)
[2017-06-29 11:35] LABS: Bedside Glucose 237 mg/dL (70-110)
[2017-06-29 15:57] VITALS: BP 140/57; PULSE 74; RESP 18; TEMP 36.5; O2SAT 96
[2017-06-29 17:21] LABS: Bedside Glucose 219 mg/dL (70-110)
[2017-06-29 17:54] VITALS: BP 140/57; PULSE 74
[2017-06-29] MEDS: Levothyroxine 75 MCG Tablet PO (20:35)
[2017-06-29] MEDS: amLODIPine 5 MG Tablet PO (20:35)
[2017-06-29 21:30] LABS: Bedside Glucose 121 mg/dL (70-110)
[2017-06-30] MEDS: oxyCODONE 5 MG Tablet 10 MG PO ×2 (06:28→15:46)
[2017-06-30] MEDS: Menthol/Lanolin/Calamine/Znox 113 GM Tube 1 APPLIC TOPICAL ×2 (06:29→21:06)
[2017-06-30] MEDS: Nystatin Powder 15gm Bottle 1 APPLIC TOPICAL ×2 (06:30→21:05)
[2017-06-30 07:01] LABS: Bedside Glucose 137 mg/dL (70-110)
[2017-06-30] MEDS: Pravastatin 40 MG Tablet PO (08:04)
[2017-06-30] MEDS: Pantoprazole Sodium 40 MG Tablet PO (08:04)
[2017-06-30] MEDS: Clopidogrel Bisulfate 75 MG Tablet PO (08:04)
[2017-06-30 08:05] VITALS: PULSE 84
[2017-06-30] MEDS: Metoprolol Tartrate 50 MG Tablet PO ×2 (08:05→17:57)
[2017-06-30] MEDS: Amox/Clavulanate 875 MG Tablet PO ×2 (08:05→21:04)
[2017-06-30] MEDS: Isosorbide Mononitrate 30 MG Tablet PO ×2 (08:05→17:58)
[2017-06-30] MEDS: Aspirin 81 MG TAB.CHEW PO (08:06)
[2017-06-30] MEDS: Enoxaparin 40 MG/0.4 ML Syringe SC (08:07)
[2017-06-30] MEDS: Glucerna Shake 120 ML LIQUID PO ×2 (08:13→12:02)
[2017-06-30 10:00] VITALS: BP 124/54; PULSE 68; RESP 16; TEMP 36.8; O2SAT 97
--- NOTE | 2017-06-30 11:47 | NURSING ---
Dr. Rush updated that pt is telling nursing staff how much insulin she wants. Stating I only want 6 units of Novolog because I don't feel like eating, that's what I take at home. This nurse offered to order something else, pt refusing stating that all the food is terrible and has been the same for 3 weeks. here and stating that he can bring in a salad for her to have for dinner. Cont to monitor.
[2017-06-30 11:56] LABS: Bedside Glucose 324 mg/dL (70-110)
[2017-06-30 15:47] VITALS: BP 157/62; PULSE 69; RESP 20; TEMP 36.4; O2SAT 98
[2017-06-30 16:56] LABS: Bedside Glucose 193 mg/dL (70-110)
[2017-06-30 17:57] VITALS: BP 157/62; PULSE 69
[2017-06-30] MEDS: Levothyroxine 75 MCG Tablet PO (21:04)
[2017-06-30] MEDS: amLODIPine 5 MG Tablet PO (21:05)
[2017-06-30 21:11] LABS: Bedside Glucose 264 mg/dL (70-110)
[2017-06-30] MEDS: diazePAM 2 MG Tablet PO (22:20)
[2017-07-01] MEDS: oxyCODONE 5 MG Tablet 10 MG PO ×2 (01:18→06:37)
[2017-07-01] MEDS: Nystatin Powder 15gm Bottle 1 APPLIC TOPICAL ×2 (06:37→20:33)
[2017-07-01] MEDS: Menthol/Lanolin/Calamine/Znox 113 GM Tube 1 APPLIC TOPICAL ×2 (06:38→20:34)
[2017-07-01] MEDS: 0.9% NaCl PICC Flush IV ×2 (06:43→20:34)
[2017-07-01 06:46] LABS: Bedside Glucose 202 mg/dL (70-110)
[2017-07-01 08:43] VITALS: PULSE 74
[2017-07-01] MEDS: Glucerna Shake 120 ML LIQUID PO ×3 (08:43→17:36)
[2017-07-01] MEDS: Aspirin 81 MG TAB.CHEW PO (08:43)
[2017-07-01] MEDS: Amox/Clavulanate 875 MG Tablet PO ×2 (08:43→20:30)
[2017-07-01] MEDS: Enoxaparin 40 MG/0.4 ML Syringe SC (08:43)
[2017-07-01] MEDS: Metoprolol Tartrate 50 MG Tablet PO ×2 (08:43→17:37)
[2017-07-01] MEDS: Pantoprazole Sodium 40 MG Tablet PO (08:44)
[2017-07-01] MEDS: Clopidogrel Bisulfate 75 MG Tablet PO (08:44)
[2017-07-01] MEDS: Pravastatin 40 MG Tablet PO (08:44)
[2017-07-01 08:54] VITALS: BP 155/55; PULSE 84
[2017-07-01] MEDS: Isosorbide Mononitrate 30 MG Tablet PO ×2 (09:30→17:37)
[2017-07-01 11:31] LABS: Bedside Glucose 206 mg/dL (70-110)
[2017-07-01 15:31] VITALS: BP 132/51; PULSE 67; RESP 18; TEMP 36.6; O2SAT 94
[2017-07-01 16:56] LABS: Bedside Glucose 110 mg/dL (70-110)
[2017-07-01 17:37] VITALS: BP 132/51; PULSE 67
[2017-07-01] MEDS: diazePAM 2 MG Tablet PO (20:30)
[2017-07-01] MEDS: amLODIPine 5 MG Tablet PO (20:30)
[2017-07-01] MEDS: Levothyroxine 75 MCG Tablet PO (20:31)
[2017-07-01 21:11] LABS: Bedside Glucose 217 mg/dL (70-110)
[2017-07-02 06:36] LABS: Bedside Glucose 173 mg/dL (70-110)
[2017-07-02] MEDS: oxyCODONE 5 MG Tablet 10 MG PO (06:44)
[2017-07-02] MEDS: Nystatin Powder 15gm Bottle 1 APPLIC TOPICAL (06:47)
[2017-07-02] MEDS: Menthol/Lanolin/Calamine/Znox 113 GM Tube 1 APPLIC TOPICAL (06:47)
[2017-07-02] MEDS: Pantoprazole Sodium 40 MG Tablet PO (08:23)
[2017-07-02 08:24] VITALS: PULSE 78
[2017-07-02] MEDS: Enoxaparin 40 MG/0.4 ML Syringe SC (08:24)
[2017-07-02] MEDS: Pravastatin 40 MG Tablet PO (08:24)
[2017-07-02] MEDS: Clopidogrel Bisulfate 75 MG Tablet PO (08:24)
[2017-07-02] MEDS: Metoprolol Tartrate 50 MG Tablet PO ×2 (08:24→17:37)
[2017-07-02] MEDS: Amox/Clavulanate 875 MG Tablet PO ×2 (08:24→20:12)
[2017-07-02] MEDS: Isosorbide Mononitrate 30 MG Tablet PO ×2 (08:24→17:37)
[2017-07-02] MEDS: Aspirin 81 MG TAB.CHEW PO (08:24)
[2017-07-02] MEDS: 0.9% NaCl PICC Flush IV ×2 (11:07→20:17)
[2017-07-02 11:36] LABS: Bedside Glucose 140 mg/dL (70-110)
[2017-07-02] MEDS: diazePAM 2 MG Tablet PO (12:01)
--- NOTE | 2017-07-02 13:55 | NURSING ---
message left with Dr Magana assistant activities director regarding need drsg change orders. Will call back with orders.
[2017-07-02 16:28] VITALS: BP 150/51; PULSE 76; RESP 16; TEMP 36.3; O2SAT 94
--- NOTE | 2017-07-02 16:47 | CHAPLAIN ---
Type of Pastoral Visit _x__ Initial Visit ___ Follow-up Visit ___ On-call Visit ___ General Patient Visit ___ Spiritual Assessment ___ Family Conference ___ Bereavement ___ Rapid Response ___ Code Blue ___ Other (describe below) Pastoral Care Referral From _x__ Patient ___ Family ___ Nurse ___ Physician ___ Senior Librarian ___ Cooper Helper ___ Other (describe below) Sacrament/Intervention ___ Active listening ___ Anointing ___ Latter Day ___ Bereavement ___ Communion ___ Sharron exploration ___ ___ Life review ___ Prayer ___ Reconciliation ___ Sacrament of Sick _x__ Supportive presence ___ Wedding ___ Other (describe below) Pastoral Comments the patient had a visitor so this visit was brief; on other occasions when this digital forensic analyst attempted to see her the pt was in a therapy session
[2017-07-02 17:11] LABS: Bedside Glucose 151 mg/dL (70-110)
[2017-07-02 17:37] VITALS: BP 150/51; PULSE 76
[2017-07-02] MEDS: Glucerna Shake 120 ML LIQUID PO (17:37)
--- NOTE | 2017-07-02 18:22 | NURSING ---
pt c/o that she wants back on her clobetsol cream for under her breasts and abd folds. feels nystatin powder ineffective. new order obtained
[2017-07-02] MEDS: Levothyroxine 75 MCG Tablet PO (20:12)
[2017-07-02] MEDS: amLODIPine 5 MG Tablet PO (20:12)
[2017-07-02 21:16] LABS: Bedside Glucose 133 mg/dL (70-110)
[2017-07-03 06:31] LABS: Bedside Glucose 188 mg/dL (70-110)
--- NOTE | 2017-07-03 08:14 | MDS.RN ---
Information for the mds was obtained from review of the clinical record, interview of resident, staff, and direct observation of resident's care.
[2017-07-03] MEDS: Clobetasol Propionate 0.05% Cream 1 APPLIC TOPICAL (09:42)
[2017-07-03] MEDS: Pravastatin 40 MG Tablet PO (09:44)
[2017-07-03] MEDS: Pantoprazole Sodium 40 MG Tablet PO (09:44)
[2017-07-03] MEDS: Enoxaparin 40 MG/0.4 ML Syringe SC (09:44)
[2017-07-03] MEDS: Aspirin 81 MG TAB.CHEW PO (09:44)
[2017-07-03] MEDS: Clopidogrel Bisulfate 75 MG Tablet PO (09:44)
[2017-07-03] MEDS: Isosorbide Mononitrate 30 MG Tablet PO ×2 (09:45→17:56)
[2017-07-03] MEDS: Amox/Clavulanate 875 MG Tablet PO ×2 (09:45→20:21)
--- NOTE | 2017-07-03 09:45 | PCM.PROGNOTE ---
Subjective: This 72 year old female was seen bedside s/p right transmetatarsal amputation. She denies foot pain. She has chills this morning and relates she is tired. She denies calf pain. - Physical Exam General: Alert, Oriented x3, Cooperative Extremities: No cyanosis, Capillary Refill Less than 3 Seconds - to dorsal and plantar amputation stump site, No Calf Tenderness - negative iris and espinal sign right, Diminished Peripheral Pulses, Edema - decreased and controlled right lower extremity Skin: Incision - well aligned and coapted to transmetatarsal amputation site with no gapping or drainage noted. no streaking or erythema noted. no odor. Neurological: - - lack of epicritic sensation via light touch right lower extremity Psych/Mental Status: Normal Affect, Appropriate Vital Signs Temp Pulse Resp BP Pulse Ox 97.4 F L 76 16 150/51 H 94 07/02/17 16:28 07/02/17 17:37 07/02/17 16:28 07/02/17 17:37 07/02/17 16:28 Oxygen Delivery Method Room Air Weight: 86.1 kg Body Mass Index (BMI) 32.5 Finger Stick Blood Glucose 193 Intake and Output for Last 24 Hours 07/01/17 07/02/17 07/03/17 23:59 23:59 23:59 Intake Total 720 / 720 480 / 480 Balance 720 / 720 480 / 480 POC Glucose 07/03/17 07/02/17 07/02/17 06:25 21:08 17:07 POC Glucose 188 H 133 H 151 H 07/02/17 11:32 POC Glucose 140 H Assessment/Plan s/p right transmetatarsal amputation on 06/18/17 secondary to osteomyelitis, chronic ulcer, abscess, and residual forefoot deformities including previous amputation that hammertoes Diabetes with neuropathy A new dressing of dry gauze to incision site with an abdominal pad and Kerlix were applied with a well-padded posterior mold secured by shree bandages was applied again this morning. She continues Augmentin per Infectious Disease at this time, new clearance fragments of the third metatarsal were obtained during surgery and the pathology results were negative for osteomyelitis. The microbiology results demonstrate rare corynebacterium. This patient was advised to keep right lower extremity/foot elevated at much as possible. To maintain a strict nonweightbearing status the right lower extremity with the use of an assistive device. To keep the dressing clean, dry, and intact at this time. Nutritional optimization with controlled blood sugars and Blue supplementation. All of patient's questions were answered. Suture removal will be considered next week. Will continue to closely follow this patient while in the transitional care unit. Medical management and DVT prophylaxis per primary team. Ivanna Magana D[facility] [phone]
[2017-07-03 11:15] LABS: Bedside Glucose 274 mg/dL (70-110)
--- NOTE | 2017-07-03 11:52 | NURSING ---
Dr. Magana in to see patient this morning, dressing changed, NNO at this time.
[2017-07-03] MEDS: Glucerna Shake 120 ML LIQUID PO (12:09)
[2017-07-03 12:39] VITALS: BP 152/64; PULSE 66
[2017-07-03] MEDS: Metoprolol Tartrate 50 MG Tablet PO ×2 (12:39→17:56)
--- NOTE | 2017-07-03 13:05 | CASEMGMT ---
Brief interview for mental status (BIMS) and resident mood interview (PHQ-9) completed on this day. BIMS score 15/15. PHQ-9 score 11/20
--- NOTE | 2017-07-03 13:07 | CASEMGMT ---
Social Work Spoke with resident in room. This social services counselor communicating that discharge date has been set for 07/09/17. Resident is agreeable to discharge date and plans to discharge home with spouse and outpatient physical therapy through [facility]. Support given. Proposed discharge date: 07/09/17 PLAN: Discharge home with spouse and outpatient Shin SALAZAR, NUCLEAR SPECTROSCOPIST
[2017-07-03 16:00] VITALS: BP 144/55; PULSE 77; RESP 18; TEMP 36.6; O2SAT 94
[2017-07-03 17:11] LABS: Bedside Glucose 203 mg/dL (70-110)
[2017-07-03 17:56] VITALS: BP 144/55; PULSE 77
[2017-07-03] MEDS: Levothyroxine 75 MCG Tablet PO (20:20)
[2017-07-03] MEDS: amLODIPine 5 MG Tablet PO (20:21)
[2017-07-03 20:51] LABS: Bedside Glucose 310 mg/dL (70-110)
[2017-07-03] MEDS: diazePAM 2 MG Tablet PO (22:43)
[2017-07-04 06:51] LABS: Bedside Glucose 129 mg/dL (70-110)
[2017-07-04 09:12] VITALS: BP 144/55; PULSE 77
[2017-07-04] MEDS: Aspirin 81 MG TAB.CHEW PO (09:12)
[2017-07-04] MEDS: Metoprolol Tartrate 50 MG Tablet PO ×2 (09:12→17:59)
[2017-07-04] MEDS: Pravastatin 40 MG Tablet PO (09:12)
[2017-07-04] MEDS: Amox/Clavulanate 875 MG Tablet PO ×2 (09:12→18:00)
[2017-07-04] MEDS: Clopidogrel Bisulfate 75 MG Tablet PO (09:12)
[2017-07-04] MEDS: Isosorbide Mononitrate 30 MG Tablet PO ×2 (09:13→17:59)
[2017-07-04] MEDS: Pantoprazole Sodium 40 MG Tablet PO (09:13)
[2017-07-04] MEDS: Clobetasol Propionate 0.05% Cream 1 APPLIC TOPICAL (09:13)
[2017-07-04] MEDS: Enoxaparin 40 MG/0.4 ML Syringe SC (09:13)
[2017-07-04 11:21] LABS: Bedside Glucose 240 mg/dL (70-110)
--- NOTE | 2017-07-04 11:53 | CASEMGMT ---
Insurance Clinical information faxed. Pending continued stay approval at this time. Auth#[id number] Nika SALAZAR, CLIN TECH
[2017-07-04] MEDS: Glucerna Shake 120 ML LIQUID PO (14:30)
[2017-07-04 15:53] VITALS: BP 140/61; PULSE 74; RESP 20; TEMP 35.9; O2SAT 95
[2017-07-04 17:11] LABS: Bedside Glucose 159 mg/dL (70-110)
[2017-07-04] MEDS: 0.9% NaCl PICC Flush IV ×2 (17:54→20:45)
[2017-07-04 17:59] VITALS: PULSE 74
[2017-07-04] MEDS: amLODIPine 5 MG Tablet PO (20:44)
[2017-07-04] MEDS: Levothyroxine 75 MCG Tablet PO (20:44)
[2017-07-04] MEDS: Menthol/Lanolin/Calamine/Znox 113 GM Tube 1 APPLIC TOPICAL (20:44)
[2017-07-04 20:46] LABS: Bedside Glucose 217 mg/dL (70-110)
[2017-07-04] MEDS: diazePAM 2 MG Tablet PO (22:43)
[2017-07-05] MEDS: Menthol/Lanolin/Calamine/Znox 113 GM Tube 1 APPLIC TOPICAL ×2 (06:13→21:06)
[2017-07-05] MEDS: 0.9% NaCl PICC Flush IV (06:14)
[2017-07-05] MEDS: Clobetasol Propionate 0.05% Cream 1 APPLIC TOPICAL (06:14)
[2017-07-05 06:35] LABS: Absolute Lymphocyte Count 2.06 X10^3/ul (0.83-4.51); Absolute Neutrophil Count 2.7 X10^3/uL (2.0-7.7); Basophil# 0.02 X10^3/uL; Basophil% 0.3 % (0-1); Eosinophil# 0.45 X10^3/uL; Eosinophils% 7.6 % (0-5); Hematocrit 30.8 % (37-47); Hemoglobin 9.5 g/dl (12.0-15.0); Lymphocyte # 2.06 X10^3/ul (4.0); Lymphocyte % 34.6 % (19-41); Mean Corp Hgb Conc 30.8 g/gl (32-36); Mean Corpuscular Hgb 25.5 pg (27.0-32.0); Mean Corpuscular Volume 82.8 fL (81-99); Mean Platelet Vol. 9.1 fl (6.2-12.0); Monocyte# 0.71 X10^3/uL; Monocyte% 11.9 % (0-10); Neutrophil # 2.69 X10^3/uL (2.7-7.7); Neutrophil % 45.3 % (47-70); Platelet Count 207 K/mm3 (150-450); RBC Distribution Width CV 14.5 % (11.6-14.6); RBC Distribution Width SD 43.9 fl (35.1-43.9); Red Blood Count 3.72 M/mm3 (4.2-5.4)
[2017-07-05 06:50] LABS: POSITIVE COUNT NO; POSITIVE DIFFERENTIAL NO; POSITIVE MORPHOLOGY NO
[2017-07-05 06:51] LABS: Bedside Glucose 171 mg/dL (70-110)
[2017-07-05 07:05] LABS: Anion Gap 10 (5-15); BUN 40 mg/dL (7-18); BUN/Creat Ratio 30.1 RATIO (10-20); Calcium,Total 9.1 mg/dL (8.5-10.1); Chloride 104 mmol/L (98-107); Creatinine, Serum 1.33 mg/dL (0.55-1.02); EST Glomerular Filtration Rate 42 mL/min (>60); Est Glom Filt Rate - Afr Amer 51 mL/min (>60); Estimated Creatinine Clearance 33.99 ml/min; Glucose 173 mg/dL (74-106); Potassium 4.3 mmol/L (3.5-5.1); Sodium Level 141 mmol/L (136-145)
[2017-07-05] MEDS: Aspirin 81 MG TAB.CHEW PO (08:31)
[2017-07-05] MEDS: Enoxaparin 40 MG/0.4 ML Syringe SC (08:31)
[2017-07-05 08:32] VITALS: PULSE 78
[2017-07-05] MEDS: Pravastatin 40 MG Tablet PO (08:32)
[2017-07-05] MEDS: Clopidogrel Bisulfate 75 MG Tablet PO (08:32)
[2017-07-05] MEDS: Pantoprazole Sodium 40 MG Tablet PO (08:32)
[2017-07-05] MEDS: Glucerna Shake 120 ML LIQUID PO (08:32)
[2017-07-05] MEDS: Amox/Clavulanate 875 MG Tablet PO ×2 (08:32→21:05)
[2017-07-05] MEDS: Metoprolol Tartrate 50 MG Tablet PO ×2 (08:32→17:58)
[2017-07-05] MEDS: Isosorbide Mononitrate 30 MG Tablet PO ×2 (08:32→17:57)
--- NOTE | 2017-07-05 08:39 | NURSING ---
pt whining this AM, called and requesting him to bring brkfst to her, offered to have our kitchen bring what she wants and pt stated no, have you ever ate oatmeal pt won't even tell what she wants to eat. Therapy came in and reported that she has therapy at 2p and pt stated if I am still here Pt taking AM meds, only wanted novolog 6 units insulin this am instead of ordered 16 units. Sitting on edge of bed
--- NOTE | 2017-07-05 09:12 | CASEMGMT ---
Insurance Continued stay approved with next update due on 07/10/17. LCD: 07/10/17. Auth#[id number] Nika SALAZAR, OPTOMETRIC TECH
[2017-07-05 11:21] LABS: Bedside Glucose 114 mg/dL (70-110)
--- NOTE | 2017-07-05 12:06 | NURSING ---
R' BLOOD SUGAR 114 FOR LUNCH. STATES SHE WILL EAT HALF OF LUNCH AND ONLY FEELS COMFORTABLE TAKING [address] ZULUAGA. OK TO GIVE 6 UNITS AT THIS TIME.
--- NOTE | 2017-07-05 14:30 | CHAPLAIN ---
Type of Pastoral Visit ___ Initial Visit _x__ Follow-up Visit ___ On-call Visit ___ General Patient Visit ___ Spiritual Assessment ___ Family Conference ___ Bereavement ___ Rapid Response ___ Code Blue ___ Other (describe below) Pastoral Care Referral From _x__ Patient ___ Family ___ Nurse ___ Physician ___ Rig Mechanic ___ Test Administrator ___ Other (describe below) Sacrament/Intervention _x__ Active listening ___ Anointing ___ Pentecostal ___ Bereavement ___ Communion ___ Sharron exploration ___ ___ Life review _x__ Prayer ___ Reconciliation ___ Sacrament of Sick _x__ Supportive presence ___ Wedding ___ Other (describe below) Pastoral Comments was able to continue a visit that was started briefly a few days ago; pt today says she is having a hard time from being down due to long time of recovery; pt says that she has to believe that God still has a purpose for me; pt speaks of her grandchildren and wants to help them grow up and to be followers of God; pt has goal of going home on Saturday
[2017-07-05 16:13] VITALS: BP 147/63; PULSE 69; RESP 20; TEMP 36.6; O2SAT 98
[2017-07-05 17:01] LABS: Bedside Glucose 196 mg/dL (70-110)
[2017-07-05 17:58] VITALS: PULSE 69
--- NOTE | 2017-07-05 18:09 | NURSING ---
R' ONLY WANTING TO TAKE 6 UNITS NOVOLOG FOR DINNER. INFORMED HER THAT BS WAS 196 BUT GOT ANGRY AND SAID I'M NOT EATING ALL THIS FOOD! IT'S CRAP! DOES NOT WANT ANY OTHER FOOD ORDERED.
[2017-07-05] MEDS: diazePAM 2 MG Tablet PO (18:14)
[2017-07-05] MEDS: oxyCODONE 5 MG Tablet 10 MG PO (21:04)
[2017-07-05] MEDS: amLODIPine 5 MG Tablet PO (21:05)
[2017-07-05] MEDS: Levothyroxine 75 MCG Tablet PO (21:05)
[2017-07-05 21:15] LABS: Bedside Glucose 398 mg/dL (70-110)
[2017-07-06 06:41] LABS: Bedside Glucose 237 mg/dL (70-110)
[2017-07-06] MEDS: Amox/Clavulanate 875 MG Tablet PO ×2 (08:36→21:10)
[2017-07-06] MEDS: Enoxaparin 40 MG/0.4 ML Syringe SC (08:36)
[2017-07-06] MEDS: Aspirin 81 MG TAB.CHEW PO (08:36)
[2017-07-06] MEDS: Isosorbide Mononitrate 30 MG Tablet PO ×2 (08:36→17:41)
[2017-07-06] MEDS: Clopidogrel Bisulfate 75 MG Tablet PO (08:37)
[2017-07-06] MEDS: Pravastatin 40 MG Tablet PO (08:37)
[2017-07-06] MEDS: Pantoprazole Sodium 40 MG Tablet PO (08:37)
[2017-07-06 08:43] VITALS: BP 151/59; PULSE 75
[2017-07-06] MEDS: Metoprolol Tartrate 50 MG Tablet PO ×2 (08:43→17:41)
[2017-07-06 11:16] LABS: Bedside Glucose 150 mg/dL (70-110)
[2017-07-06] MEDS: Glucerna Shake 120 ML LIQUID PO (12:20)
[2017-07-06 15:58] VITALS: BP 143/58; PULSE 75; RESP 20; TEMP 36.7; O2SAT 97
[2017-07-06 17:06] LABS: Bedside Glucose 295 mg/dL (70-110)
[2017-07-06 17:41] VITALS: BP 143/58; PULSE 75
[2017-07-06] MEDS: Clobetasol Propionate 0.05% Cream 1 APPLIC TOPICAL (17:47)
[2017-07-06] MEDS: amLODIPine 5 MG Tablet PO (21:11)
[2017-07-06] MEDS: Levothyroxine 75 MCG Tablet PO (21:11)
[2017-07-06] MEDS: Menthol/Lanolin/Calamine/Znox 113 GM Tube 1 APPLIC TOPICAL (21:11)
[2017-07-06 22:16] LABS: Bedside Glucose 216 mg/dL (70-110)
[2017-07-07] MEDS: oxyCODONE 5 MG Tablet 10 MG PO (00:57)
[2017-07-07] MEDS: Menthol/Lanolin/Calamine/Znox 113 GM Tube 1 APPLIC TOPICAL ×2 (03:59→20:14)
[2017-07-07] MEDS: Clobetasol Propionate 0.05% Cream 1 APPLIC TOPICAL (04:01)
[2017-07-07] MEDS: 0.9% NaCl PICC Flush IV ×3 (04:02→20:15)
[2017-07-07 06:36] LABS: Bedside Glucose 186 mg/dL (70-110)
[2017-07-07 09:57] VITALS: PULSE 65
[2017-07-07] MEDS: Metoprolol Tartrate 50 MG Tablet PO ×2 (09:57→17:58)
[2017-07-07] MEDS: Aspirin 81 MG TAB.CHEW PO (09:58)
[2017-07-07] MEDS: Pantoprazole Sodium 40 MG Tablet PO (09:58)
[2017-07-07] MEDS: Clopidogrel Bisulfate 75 MG Tablet PO (09:58)
[2017-07-07] MEDS: Isosorbide Mononitrate 30 MG Tablet PO ×2 (09:58→17:57)
[2017-07-07] MEDS: Amox/Clavulanate 875 MG Tablet PO ×2 (09:58→20:15)
[2017-07-07] MEDS: Enoxaparin 40 MG/0.4 ML Syringe SC (10:00)
[2017-07-07] MEDS: Pravastatin 40 MG Tablet PO (10:08)
[2017-07-07 11:10] LABS: Bedside Glucose 213 mg/dL (70-110)
[2017-07-07] MEDS: Glucerna Shake 120 ML LIQUID PO ×2 (12:10→17:57)
[2017-07-07 16:00] VITALS: BP 140/70; PULSE 63; RESP 20; TEMP 36.5; O2SAT 98
[2017-07-07 17:00] LABS: Bedside Glucose 286 mg/dL (70-110)
[2017-07-07 17:58] VITALS: PULSE 63
[2017-07-07] MEDS: amLODIPine 5 MG Tablet PO (20:15)
[2017-07-07] MEDS: Levothyroxine 75 MCG Tablet PO (20:15)
[2017-07-07 21:01] LABS: Bedside Glucose 330 mg/dL (70-110)
[2017-07-08 06:36] LABS: Bedside Glucose 157 mg/dL (70-110)
[2017-07-08] MEDS: Menthol/Lanolin/Calamine/Znox 113 GM Tube 1 APPLIC TOPICAL ×2 (06:41→20:21)
--- NOTE | 2017-07-08 11:08 | NURSING ---
Dr Magana has been changing dressings. dressing to the right foot is to remain D&I. will change dressing if asked to do so per podiatry.
--- NOTE | 2017-07-08 11:15 | CASEMGMT ---
Social Work Telephone call to [facility]. Outpatient physical therapy appointment set up for 07/16/17 @ 11:00am. Script faxed. Spoke with resident in room. This renal social worker communicating above appointment date. Resident agreeable to appointment time and date and also communicating that [facility] contacted resident and communicating that [facility] does not carry Kneelers for walkers. Telephone call to [facility] (script was faxed to [facility] for Kneeler on 07/05/17. [facility] reporting to not stoke Kneelers and that Kneelers are not covered by resident insurance. This renal social worker also checking with [facility], [facility] does not carry Kneelers and is reporting also that resident insurance does not cover Kneelers. This renal social worker collaborating with resident on plan to obtain Kneeler. Resident able to look up a place to purchase the Kneeler on-line. Resident planning to purchase the Kneeler. Resident spouse to provide transportation home for resident at time of discharge. Support given. Proposed discharge date: 07/09/17 PLAN: Discharge home with spouse and outpatient PT services. Nika SALAZAR, YOUTH ADVOCATE
[2017-07-08] MEDS: Aspirin 81 MG TAB.CHEW PO (11:19)
[2017-07-08] MEDS: Isosorbide Mononitrate 30 MG Tablet PO ×2 (11:19→17:44)
[2017-07-08] MEDS: Amox/Clavulanate 875 MG Tablet PO ×2 (11:19→20:20)
[2017-07-08] MEDS: Pantoprazole Sodium 40 MG Tablet PO (11:19)
[2017-07-08] MEDS: Clopidogrel Bisulfate 75 MG Tablet PO (11:20)
[2017-07-08] MEDS: Enoxaparin 40 MG/0.4 ML Syringe SC (11:20)
[2017-07-08] MEDS: Pravastatin 40 MG Tablet PO (11:20)
[2017-07-08] MEDS: Glucerna Shake 120 ML LIQUID PO ×2 (11:27→17:43)
[2017-07-08 11:32] VITALS: BP 146/69; PULSE 76
[2017-07-08] MEDS: Metoprolol Tartrate 50 MG Tablet PO ×2 (11:32→17:43)
[2017-07-08] MEDS: Clobetasol Propionate 0.05% Cream 1 APPLIC TOPICAL (11:36)
[2017-07-08 12:06] LABS: Bedside Glucose 176 mg/dL (70-110)
--- NOTE | 2017-07-08 12:20 | NURSING ---
Addendum entered by Kasandra Terry 07/08/17 15:55: Appt changed to 07/11/17 at 11am, pt aware Original Note: This nurse spoke with Dr. Magana, pt's drsg does not need changed before discharge. Dr. Magana would like to see pt in her office this or Saturday, appt made for 07/12/17 at 8am (only time available), pt aware.
--- NOTE | 2017-07-08 13:34 | NURSING ---
Per Dr. Webb and Dr. Magana, OK to DC pt's PICC line
[2017-07-08 15:54] VITALS: BP 135/68; PULSE 64; RESP 20; TEMP 36.8; O2SAT 99
[2017-07-08 17:01] LABS: Bedside Glucose 127 mg/dL (70-110)
[2017-07-08 17:43] VITALS: BP 135/68; PULSE 64
[2017-07-08] MEDS: diazePAM 2 MG Tablet PO (17:53)
[2017-07-08] MEDS: Levothyroxine 75 MCG Tablet PO (20:20)
[2017-07-08] MEDS: amLODIPine 5 MG Tablet PO (20:20)
[2017-07-08 21:35] LABS: Bedside Glucose 350 mg/dL (70-110)
--- NOTE | 2017-07-08 22:10 | PCM.DC ---
- Discharge Diagnoses Current Active Problems: Current Active and Chronic Problems (Last Updated 06/07/17 @ 16:07 by Madison Alicea) Peripheral arterial occlusive disease (Chronic) Stroke (Chronic) You will use the following diet at home:: No restrictions, Regular Your food should be the consistency of: Regular Your liquids should be the consistency of: Regular/Thin Discharge Activity: Return to Normal Activity, Use Walker Weight Bearing Status: No weight bearing - Right lower extremity. Call your doctor if you observe: Fever of 101 or Higher, Inability to urinate, Inability to have a bowel movement, Shortness of breath, Chest pain, Uncontrolled pain Allergies/Adverse Reactions: Allergies Penicillins Allergy (Severe, Verified 06/07/17 15:35) Unknown atorvastatin calcium [From Lipitor] Allergy (Verified 03/10/17 21:12) Unknown bupropion HCl [From Wellbutrin] Allergy (Verified 03/10/17 21:12) Unknown mannitol [From Reclast] Allergy (Verified 03/10/17 21:12) joint pain, unable to breathe, unable to walk propoxyphene napsylate [From Darvocet-N 100] Allergy (Verified 03/10/17 21:12) Unknown Quinolones Allergy (Verified 03/10/17 21:12) Unknown Tetanus Vaccines and Toxoid [Tetanus Vaccines & Toxoid] Allergy (Verified 03/10/17 21:12) Chest tightness tizanidine Allergy (Verified 03/10/17 21:12) Unknown water for injection,sterile [From Reclast] Allergy (Verified 03/10/17 21:12) joint pain, unable to breathe, unable to walk JOINT PAIN,UNABLE TO BREATHE,UNABLE TO WALK zoledronic acid [From Reclast] Allergy (Verified 03/10/17 21:12) joint pain,unable to breathe, unaable to walk JOINT PAIN,UNABLE TO BREATHE,UNABLE TO WALK pravastatin Adverse Reaction (Severe, Verified 06/07/17 15:36) Myalgias gemfibrozil Adverse Reaction (Intermediate, Verified 06/07/17 15:36) Unknown NSAIDS (Non-Steroidal Anti-Inflamma Adverse Reaction (Verified 03/10/17 21:12) Other Medications to take at Discharge Aspirin [Aspirin, Baby] 81 mg PO DAILY@0800 03/10/17 Clobetasol Propionate/Emoll [Clobetasol Emollient 0.05% Crm] 1 applic TP BID 03/10/17 Clopidogrel Bisulfate [Plavix] 75 mg PO DAILY 03/10/17 Levothyroxine Sodium [Levoxyl] 75 mcg PO QHS 03/10/17 Metoprolol Tartrate [Lopressor (beta fina)] 50 mg PO BID 03/10/17 Nitroglycerin [Nitrostat] 0.4 mg SUBLINGUAL Q5M PRN 03/10/17 Pantoprazole Sodium [Protonix] 40 mg PO DAILY 03/10/17 Pravastatin Sodium 40 mg PO DAILY 03/10/17 Menthol/Lanolin/Calamine/Znox [Calmoseptine Ointment] 1 applic TOPICAL DAILY 03/11/17 isosorbide mononitrate ER 30 mg tablet,extended release 24 hr 30 mg PO BID tab 06/07/17 Amlodipine Besylate [Norvasc] 5 mg PO QHS 06/11/17 Promethazine HCl 25 mg PO BID PRN PRN 06/11/17 Diazepam [Valium] 2 mg PO TID PRN PRN #6 tab 06/20/17 Oxycodone [Oxyir] 5 - 10 mg PO Q4H PRN PRN #12 tab 06/20/17 Acetaminophen [Tylenol] 1,000 mg PO Q8H PRN tablet 07/08/17 Clobetasol Propionate [Temovate Cream (BKC)] 1 applic TOPICAL BID tube 07/08/17 Diazepam [Valium] 2 mg PO Q8H PRN #21 tablet 07/08/17 Ergocalciferol [Vitamin D] 50,000 unit PO Q7D capsule 07/08/17 Insulin Aspart [Novolog Flexpen] 16 units SC TIDAC flexpen 07/08/17 Insulin Detemir [Levemir FlexPen] 25 units SC BID #1 insuln.pen 07/08/17 MorphINE Soln [Roxanol] 5 mg PO Q4H PRN PRN po.syringe 07/08/17 Nutritional Supplement [Blue - ORANGE FLAVOR] 1 packet PO BIDCM #60 packet 07/08/17 Oxycodone CR [Oxycontin] 20 mg PO BID #14 tablet 07/08/17 Oxycodone [Oxyir] 10 mg PO Q4H PRN PRN #30 tablet 07/08/17 Pantoprazole Sodium [Protonix] 40 mg PO DAILY@0800 #30 tab 07/08/17 ProMETHAzine [Phenergan] 25 mg PO Q6H PRN PRN #28 tab 07/08/17 The following prescriptions were given: Oxycodone [Oxyir] 10 mg PO Q4H PRN PRN #30 tablet PRN Reason: Severe Pain (6-03/05) ProMETHAzine [Phenergan] 25 mg PO Q6H PRN PRN #28 tab PRN Reason: NAUSEA/VOMITING Diazepam [Valium] 2 mg PO Q8H PRN #21 tablet PRN Reason: Muscle Spasm Pantoprazole Sodium [Protonix] 40 mg PO DAILY@0800 #30 tab Insulin Detemir [Levemir FlexPen] 25 units SC BID #1 insuln.pen Nutritional Supplement [Blue - ORANGE FLAVOR] 1 packet PO BIDCM #60 packet Oxycodone CR [Oxycontin] 20 mg PO BID #14 tablet Primary Care Physician: Con Johnson MD [Primary Care Provider] - Please follow up with your Primary Care Physician in: 1 week. Please Follow Up With: Dr. Magana When: [phone] Please Follow Up With: Dr Padgett Please Follow Up With: Dr. Webb When: 2 weeks. Proposed Discharge Date: 07/09/17
--- NOTE | 2017-07-08 22:13 | DCINST_ITS ---
- Discharge Diagnoses Current Active Problems: Current Active and Chronic Problems (Last Updated 06/07/17 @ 16:07 by Madison Alicea ) Peripheral arterial occlusive disease (Chronic) Stroke (Chronic) You will use the following diet at home:: No restrictions, Regular Your food should be the consistency of: Regular Your liquids should be the consistency of: Regular/Thin Discharge Activity: Return to Normal Activity, Use Walker Weight Bearing Status: No weight bearing - Right lower extremity. Call your doctor if you observe: Fever of 101 or Higher, Inability to urinate, Inability to have a bowel movement, Shortness of breath, Chest pain, Uncontrolled pain Allergies/Adverse Reactions: Allergies Penicillins Allergy (Severe, Verified 06/07/17 15:35) Unknown atorvastatin calcium [From Lipitor] Allergy (Verified 03/10/17 21:12) Unknown bupropion HCl [From Wellbutrin] Allergy (Verified 03/10/17 21:12) Unknown mannitol [From Reclast] Allergy (Verified 03/10/17 21:12) joint pain, unable to breathe, unable to walk propoxyphene napsylate [From Darvocet-N 100] Allergy (Verified 03/10/17 21:12) Unknown Quinolones Allergy (Verified 03/10/17 21:12) Unknown Tetanus Vaccines and Toxoid [Tetanus Vaccines & Toxoid] Allergy (Verified 21:12) Chest tightness tizanidine Allergy (Verified 03/10/17 21:12) Unknown water for injection,sterile [From Reclast] Allergy (Verified 03/10/17 21:12) joint pain, unable to breathe, unable to walk JOINT PAIN,UNABLE TO BREATHE,UNABLE TO WALK zoledronic acid [From Reclast] Allergy (Verified 03/10/17 21:12) joint pain,unable to breathe, unaable to walk JOINT PAIN,UNABLE TO BREATHE,UNABLE TO WALK pravastatin Adverse Reaction (Severe, Verified 06/07/17 15:36) Myalgias gemfibrozil Adverse Reaction (Intermediate, Verified 06/07/17 15:36) Unknown NSAIDS (Non-Steroidal Anti-Inflamma Adverse Reaction (Verified 03/10/17 21:12) Other Medications to take at Discharge Aspirin [Aspirin, Baby] 81 mg PO DAILY@0800 03/10/17 Clobetasol Propionate/Emoll [Clobetasol Emollient 0.05% Crm] 1 applic TP BID Clopidogrel Bisulfate [Plavix] 75 mg PO DAILY 03/10/17 Levothyroxine Sodium [Levoxyl] 75 mcg PO QHS 03/10/17 Metoprolol Tartrate [Lopressor (beta fina)] 50 mg PO BID 03/10/17 Nitroglycerin [Nitrostat] 0.4 mg SUBLINGUAL Q5M PRN 03/10/17 Pantoprazole Sodium [Protonix] 40 mg PO DAILY 03/10/17 Pravastatin Sodium 40 mg PO DAILY 03/10/17 Menthol/Lanolin/Calamine/Znox [Calmoseptine Ointment] 1 applic TOPICAL DAILY isosorbide mononitrate ER 30 mg tablet,extended release 24 hr 30 mg PO BID tab 06/07/17 Amlodipine Besylate [Norvasc] 5 mg PO QHS 06/11/17 Promethazine HCl 25 mg PO BID PRN PRN 06/11/17 Diazepam [Valium] 2 mg PO TID PRN PRN #6 tab 06/20/17 Oxycodone [Oxyir] 5 - 10 mg PO Q4H PRN PRN #12 tab 06/20/17 Acetaminophen [Tylenol] 1,000 mg PO Q8H PRN tablet 07/08/17 Clobetasol Propionate [Temovate Cream (BKC)] 1 applic TOPICAL BID tube Diazepam [Valium] 2 mg PO Q8H PRN #21 tablet 07/08/17 Ergocalciferol [Vitamin D] 50,000 unit PO Q7D capsule 07/08/17 Insulin Aspart [Novolog Flexpen] 16 units SC TIDAC flexpen 07/08/17 Insulin Detemir [Levemir FlexPen] 25 units SC BID #1 insuln.pen 07/08/17 MorphINE Soln [Roxanol] 5 mg PO Q4H PRN PRN po.syringe 07/08/17 Nutritional Supplement [Blue - ORANGE FLAVOR] 1 packet PO BIDCM #60 packet 05/13 Oxycodone CR [Oxycontin] 20 mg PO BID #14 tablet 07/08/17 Oxycodone [Oxyir] 10 mg PO Q4H PRN PRN #30 tablet 07/08/17 Pantoprazole Sodium [Protonix] 40 mg PO DAILY@0800 #30 tab 07/08/17 ProMETHAzine [Phenergan] 25 mg PO Q6H PRN PRN #28 tab 07/08/17 The following prescriptions were given: Oxycodone [Oxyir] 10 mg PO Q4H PRN PRN #30 tablet PRN Reason: Severe Pain (6-03/05) ProMETHAzine [Phenergan] 25 mg PO Q6H PRN PRN #28 tab PRN Reason: NAUSEA/VOMITING Diazepam [Valium] 2 mg PO Q8H PRN #21 tablet PRN Reason: Muscle Spasm Pantoprazole Sodium [Protonix] 40 mg PO DAILY@0800 #30 tab Insulin Detemir [Levemir FlexPen] 25 units SC BID #1 insuln.pen Nutritional Supplement [Blue - ORANGE FLAVOR] 1 packet PO BIDCM #60 packet Oxycodone CR [Oxycontin] 20 mg PO BID #14 tablet Primary Care Physician: Con Johnson MD [Primary Care Provider] - Please follow up with your Primary Care Physician in: 1 week. Please Follow Up With: Dr. Magana When: [phone] Please Follow Up With: Dr Padgett Please Follow Up With: Dr. Webb When: 2 weeks. Proposed Discharge Date: 07/09/17
--- NOTE | 2017-07-08 22:13 | PCM.DC.SUM ---
Discharge Date and Diagnosis Date of Admission: 06/20/17 Date of Discharge: 07/09/17 - Secondary Discharge Diagnosis Chronic Problems (Last Updated 06/07/17 @ 16:07 by Madison Alicea) Peripheral arterial occlusive disease (Chronic) Stroke (Chronic) Stented coronary artery (Chronic) PTCA and YASIR to proximal and distal CX per Dr. Hatfield 12/21/2014; History of left heart catheterization (Chronic) CABG X 3 vessels [facility]:DANIEL to LAD, reverse SVG to dx and to 2nd OM per Dr. Borjas @ [facility] 09/09/2014; PTCA andDES to proximal and distal CX per Dr. Hatfield 12/21/2014; History of coronary artery bypass graft (Chronic) CABG X 3 vessels [facility]:DANIEL to LAD, reverse SVG to dx and to 2nd OM per Dr. Borjas @ [facility] 09/09/2014 Atherosclerotic heart disease of [place] coronary artery without angina pectoris (Chronic) CABG X 3 vessels [facility]:DANIEL to LAD, reverse SVG to dx and to 2nd OM per Dr. Borjas @ [facility] 09/09/2014; PTCA and YASIR to proximal and distal CX per Dr. Hatfield 12/21/2014; C. 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) Carotid artery disease (Chronic) Xerosis of skin (Chronic) Malnutrition (Chronic) Ulcer of right foot with fat layer exposed (Chronic) Diabetes mellitus with polyneuropathy (Chronic) Peripheral vascular disease (Chronic) History of stroke (Chronic) Hypertension (Chronic) Obesity (Chronic) Diabetes mellitus type II (Chronic) Chronic pain (Chronic) Fatty liver (Chronic) Hyperlipidemia (Chronic) Coronary artery disease (Chronic) Hypothyroidism (Chronic) Iron deficiency anemia (Chronic) GERD (gastroesophageal reflux disease) (Chronic) Vitamin D deficiency (Chronic) Insomnia (Chronic) Hospital Course and Treatment Imaging Results: 06/23/17 14:17 Diet: Calorie Controlled Is pt able to select menu?: Yes Diet Comments: COOKED VEGGIES, SHREDDED LETTUCE How many daily calories?: 1800 calorie Labs (Last 48 Hours) 07/06/17 07/07/17 07/07/17 22:12 06:22 11:05 POC Glucose 216 H 186 H 213 H 07/07/17 07/07/17 07/08/17 16:55 20:58 06:32 POC Glucose 286 H 330 H 157 H 07/08/17 07/08/17 07/08/17 11:35 16:55 21:29 POC Glucose 176 H 127 H 350 H Consultations 06/20/17 Consult: Onc/Wound/tourist home keeper Routine Comment: Reason for Consult:: right plantar sole diabetic ulcer Operations: None Procedures: None Summary of Care Provided: The patient is a 72 year old Female with below past medical history hospitalized for right foot ulcer, right foot osteomyelitis, underwent right foot transmetatarsal amputation per Dr. Magana 06/18/2017, admitted to TCU for rehabilitation, strengthening. Will discharge home with spouse. Will have outpatient physical therapy. [] Discharge Diet: No Restrictions Discharge Activity: Return to Normal Activity, Use Walker Weight Bearing Status: No weight bearing - Right lower extremity. Call your doctor if you observe: Fever of 101 or Higher, Inability to urinate, Inability to have a bowel movement, Shortness of breath, Chest pain, Uncontrolled pain Home Medications: Medications to take at Discharge Aspirin [Aspirin, Baby] 81 mg PO DAILY@0800 03/10/17 Clobetasol Propionate/Emoll [Clobetasol Emollient 0.05% Crm] 1 applic TP BID 03/10/17 Clopidogrel Bisulfate [Plavix] 75 mg PO DAILY 03/10/17 Levothyroxine Sodium [Levoxyl] 75 mcg PO QHS 03/10/17 Metoprolol Tartrate [Lopressor (beta fina)] 50 mg PO BID 03/10/17 Nitroglycerin [Nitrostat] 0.4 mg SUBLINGUAL Q5M PRN 03/10/17 Pantoprazole Sodium [Protonix] 40 mg PO DAILY 03/10/17 Pravastatin Sodium 40 mg PO DAILY 03/10/17 Menthol/Lanolin/Calamine/Znox [Calmoseptine Ointment] 1 applic TOPICAL DAILY 03/11/17 isosorbide mononitrate ER 30 mg tablet,extended release 24 hr 30 mg PO BID tab 06/07/17 Amlodipine Besylate [Norvasc] 5 mg PO QHS 06/11/17 Promethazine HCl 25 mg PO BID PRN PRN 06/11/17 Diazepam [Valium] 2 mg PO TID PRN PRN #6 tab 06/20/17 Oxycodone [Oxyir] 5 - 10 mg PO Q4H PRN PRN #12 tab 06/20/17 Acetaminophen [Tylenol] 1,000 mg PO Q8H PRN tablet 07/08/17 Clobetasol Propionate [Temovate Cream (BKC)] 1 applic TOPICAL BID tube 07/08/17 Diazepam [Valium] 2 mg PO Q8H PRN #21 tablet 07/08/17 Ergocalciferol [Vitamin D] 50,000 unit PO Q7D capsule 07/08/17 Insulin Aspart [Novolog Flexpen] 16 units SC TIDAC flexpen 07/08/17 Insulin Detemir [Levemir FlexPen] 25 units SC BID #1 insuln.pen 07/08/17 MorphINE Soln [Roxanol] 5 mg PO Q4H PRN PRN po.syringe 07/08/17 Nutritional Supplement [Blue - ORANGE FLAVOR] 1 packet PO BIDCM #60 packet 07/08/17 Oxycodone CR [Oxycontin] 20 mg PO BID #14 tablet 07/08/17 Oxycodone [Oxyir] 10 mg PO Q4H PRN PRN #30 tablet 07/08/17 Pantoprazole Sodium [Protonix] 40 mg PO DAILY@0800 #30 tab 07/08/17 ProMETHAzine [Phenergan] 25 mg PO Q6H PRN PRN #28 tab 07/08/17 Following Prescrptions Were Given to Patient: Oxycodone [Oxyir] 10 mg PO Q4H PRN PRN #30 tablet PRN Reason: Severe Pain (6-10/10) ProMETHAzine [Phenergan] 25 mg PO Q6H PRN PRN #28 tab PRN Reason: NAUSEA/VOMITING Diazepam [Valium] 2 mg PO Q8H PRN #21 tablet PRN Reason: Muscle Spasm Pantoprazole Sodium [Protonix] 40 mg PO DAILY@0800 #30 tab Insulin Detemir [Levemir FlexPen] 25 units SC BID #1 insuln.pen Nutritional Supplement [Blue - ORANGE FLAVOR] 1 packet PO BIDCM #60 packet Oxycodone CR [Oxycontin] 20 mg PO BID #14 tablet Primary Care Physician: Con Johnson MD [Primary Care Provider] - Please follow up with your Primary Care Physician in: 1 week. Please Follow Up With: Dr. Magana When: [phone] Please Follow Up With: Dr Padgett Please Follow Up With: Dr. Webb When: 2 weeks. Disposition: Home Minutes spent on discharge:: 35 Patient Condition:: Stable Meaningful Use Info Meaningful Use Diagnoses (Choose all that apply): None applicable
[2017-07-09] MEDS: oxyCODONE 5 MG Tablet 10 MG PO (01:14)
[2017-07-09] MEDS: Clobetasol Propionate 0.05% Cream 1 APPLIC TOPICAL (06:34)
[2017-07-09] MEDS: Menthol/Lanolin/Calamine/Znox 113 GM Tube 1 APPLIC TOPICAL ×2 (06:34→21:35)
[2017-07-09 06:46] LABS: Bedside Glucose 187 mg/dL (70-110)
--- NOTE | 2017-07-09 07:20 | NURSING ---
Pt is being discharged home today. According to Dr Magana, dressing does not need to be changed prior to discharge. pt has follow up appt with her later this week.
[2017-07-09] MEDS: Pantoprazole Sodium 40 MG Tablet PO (08:35)
[2017-07-09 08:36] VITALS: PULSE 86
[2017-07-09] MEDS: Amox/Clavulanate 875 MG Tablet PO ×2 (08:36→21:29)
[2017-07-09] MEDS: Metoprolol Tartrate 50 MG Tablet PO ×2 (08:36→17:38)
[2017-07-09] MEDS: Aspirin 81 MG TAB.CHEW PO (08:36)
[2017-07-09] MEDS: Pravastatin 40 MG Tablet PO (08:36)
[2017-07-09] MEDS: Isosorbide Mononitrate 30 MG Tablet PO ×2 (08:36→17:38)
[2017-07-09] MEDS: Clopidogrel Bisulfate 75 MG Tablet PO (08:36)
--- NOTE | 2017-07-09 11:39 | CASEMGMT ---
Social Work Spoke with resident in room on this day. Resident reporting to have spoken with Lilibeth at [facility] (a case loader operator) and that Lilibeth communicated that a kneeler would be covered by resident insurance. Resident giving this social media director Lilibeth's contact information. Telephone call to Lilibeth. This social media director speaking with Lilibeth. Lilibeth clarifying that Lilibeth communicated to resident that the Kneeler may be covered but not that it is or will be. This social media director voicing understanding and then speaking with resident again in room. This social media director clarifying what Lilibeth communicated to resident. Resident voicing understanding but due to thinking that the kneeler would be covered did not order the equipment. Collaborating with resident and team and discharge date has been canceled at this time with a hope that resident would be able to discharge within the next few days. Resident planning to order the Kneeler at this time. Resident also requesting for a script for a hospital bed and would like the script to be given to resident. Resident planning to establish setting up the hospital bed on my own time. Support given. Will continue to follow. Script for hospital bed given to resident. Nika SALAZAR, COIL BINDER
[2017-07-09] MEDS: Glucerna Shake 120 ML LIQUID PO (11:56)
[2017-07-09 12:06] LABS: Bedside Glucose 189 mg/dL (70-110)
--- NOTE | 2017-07-09 15:23 | CASEMGMT ---
Social Work Following up with resident in room on discharge plan. Resident reporting to have ordered the Kneeler and planning to discharge home on 07/10/17 to home with spouse with outpatient Physical therapy. Resident reporting that Kneeler will be delivered to resident home tomorrow (07/10/17). Resident identifying no further needs a this time. Resident spouse to provide transportation home for resident at time of discharge. Support given. Proposed discharge date: 07/10/17 PLAN: Discharge home with spouse and outpatient physical therapy. Nika SALAZAR, ACQUISITION LEAD
[2017-07-09 15:44] VITALS: BP 150/62; PULSE 71; RESP 16; TEMP 36.4; O2SAT 95
[2017-07-09 17:06] LABS: Bedside Glucose 203 mg/dL (70-110)
[2017-07-09 17:38] VITALS: PULSE 71
[2017-07-09 21:11] LABS: Bedside Glucose 489 mg/dL (70-110)
--- NOTE | 2017-07-09 21:24 | NURSING ---
Dr. Rush notified of patient's BS at is 489. New orders given.
[2017-07-09] MEDS: Levothyroxine 75 MCG Tablet PO (21:28)
[2017-07-09] MEDS: amLODIPine 5 MG Tablet PO (21:28)
[2017-07-09] MEDS: diazePAM 2 MG Tablet PO (21:32)
[2017-07-10 00:12] LABS: Bedside Glucose 339 mg/dL (70-110)
[2017-07-10] MEDS: oxyCODONE 5 MG Tablet 10 MG PO (00:13)
[2017-07-10 06:56] LABS: Bedside Glucose 189 mg/dL (70-110)
[2017-07-10 08:22] VITALS: PULSE 78
[2017-07-10] MEDS: Amox/Clavulanate 875 MG Tablet PO (08:22)
[2017-07-10] MEDS: Isosorbide Mononitrate 30 MG Tablet PO (08:22)
[2017-07-10] MEDS: Metoprolol Tartrate 50 MG Tablet PO (08:22)
[2017-07-10] MEDS: Aspirin 81 MG TAB.CHEW PO (08:22)
[2017-07-10] MEDS: Clopidogrel Bisulfate 75 MG Tablet PO (08:23)
[2017-07-10] MEDS: Pantoprazole Sodium 40 MG Tablet PO (08:23)
[2017-07-10 08:27] VITALS: BP 163/58; PULSE 80; RESP 18; TEMP 36.7; O2SAT 96
[2017-07-10] MEDS: Pravastatin 40 MG Tablet PO (08:57)
--- NOTE | 2017-07-10 15:48 | CASEMGMT ---
Insurance Notified insurance of resident discharge on 07/10/17 to home with spouse and outpatient P.T. Auth#[id number] Nika SALAZAR, WAD BLANKING PRESS ADJUSTER
--- NOTE | 2017-07-18 09:19 | MDS.RN ---
Information for the mds was obtained from review of the clinical record, interview of resident, staff, and direct observation of resident's care.
== END 2017-07-10 11:04 | disposition home or self-care (01) | DRG 560 ==
PROVIDERS: Podiatrist; Admitting Provider Family Medicine Geriatric Medicine; Family Provider Family Medicine; PCP Family Medicine; Visit Provider Family Medicine Geriatric Medicine
DX: Z47.81 Encounter for orthopedic aftercare following surgical amputation (principal); M86.8X7 Other osteomyelitis, ankle and foot; E11.42 Type 2 diabetes mellitus with diabetic polyneuropathy; E11.51 Type 2 diabetes mellitus with diabetic peripheral angiopathy without gangrene; E11.69 Type 2 diabetes mellitus with other specified complication; K21.9 Gastro-esophageal reflux disease without esophagitis; E78.5 Hyperlipidemia, unspecified; I25.10 Atherosclerotic heart disease of native coronary artery without angina pectoris; E03.9 Hypothyroidism, unspecified; M19.90 Unspecified osteoarthritis, unspecified site; M62.838 Other muscle spasm; D50.9 Iron deficiency anemia, unspecified; Z89.431 Acquired absence of right foot; Z86.73 Personal history of transient ischemic attack (TIA), and cerebral infarction without residual deficits; Z79.899 Other long term (current) drug therapy; Z79.02 Long term (current) use of antithrombotics/antiplatelets; Z79.82 Long term (current) use of aspirin; Z79.4 Long term (current) use of insulin; Z79.01 Long term (current) use of anticoagulants; Z98.84 Bariatric surgery status; Z95.1 Presence of aortocoronary bypass graft; I10 Essential (primary) hypertension; K76.0 Fatty (change of) liver, not elsewhere classified; G25.81 Restless legs syndrome
CPT/HCPCS: 36415; 80048; 82962; 85025; 85652; 86140; 97110; 97116; 97140; 97162; 97165; 97530; 97535; 97802; A4216

== ENCOUNTER → 2017-07-11 10:17 | Outpatient (CLI) | payer OTHER, MEDICARE, SELFPAY ==
[2017-07-11 12:13] LABS: Absolute Lymphocyte Count 2.04 X10^3/ul (0.83-4.51); Absolute Neutrophil Count 3.9 X10^3/uL (2.0-7.7); Basophil# 0.04 X10^3/uL; Basophil% 0.6 % (0-1); Eosinophil# 0.31 X10^3/uL; Eosinophils% 4.5 % (0-5); Hematocrit 37.9 % (37-47); Hemoglobin 11.8 g/dl (12.0-15.0); Lymphocyte # 2.04 X10^3/ul (4.0); Lymphocyte % 29.3 % (19-41); Mean Corp Hgb Conc 31.1 g/gl (32-36); Mean Corpuscular Hgb 25.4 pg (27.0-32.0); Mean Corpuscular Volume 81.7 fL (81-99); Mean Platelet Vol. 10.7 fl (6.2-12.0); Monocyte# 0.65 X10^3/uL; Monocyte% 9.3 % (0-10); Platelet Count 301 K/mm3 (150-450); RBC Distribution Width CV 14.5 % (11.6-14.6); RBC Distribution Width SD 42.1 fl (35.1-43.9); Red Blood Count 4.64 M/mm3 (4.2-5.4)
[2017-07-11 12:15] LABS: POSITIVE COUNT NO; POSITIVE DIFFERENTIAL NO; POSITIVE MORPHOLOGY NO
[2017-07-11 12:32] LABS: Erythrocyte Sedimentation Rate 65 mm/hr (0-30)
[2017-07-11 12:40] LABS: Hemoglobin A1c 8.4 % (4.2-6.3)
[2017-07-11 12:43] LABS: ALB/GLOB Ratio 0.7 RATIO (0.9-2.4); AST(SGOT) 19 U/L (15-37); Alanine Aminotransfer ALT/SGPT 24 U/L (13-56); Albumin, Serum 3.4 g/dL (3.2-5.0); Alkaline Phosphatase 107 U/L (45-117); Anion Gap 8 (5-15); BUN 27 mg/dL (7-18); BUN/Creat Ratio 18.8 RATIO (10-20); CRP < 2.90 mg/L (0.0-3.0); Calcium,Total 9.4 mg/dL (8.5-10.1); Chloride 104 mmol/L (98-107); Creatinine, Serum 1.44 mg/dL (0.55-1.02); EST Glomerular Filtration Rate 38 mL/min (>60); Est Glom Filt Rate - Afr Amer 46 mL/min (>60); Globulin 5.1 g/dL (2.2-4.2); Glucose 132 mg/dL (74-106); Potassium 4.4 mmol/L (3.5-5.1); Protein, Total 8.5 g/dL (6.4-8.2); Sodium Level 139 mmol/L (136-145)
== END ==
PROVIDERS: Family Provider Family Medicine; PCP Family Medicine; Visit Provider Family Medicine
DX: E11.39 Type 2 diabetes mellitus with other diabetic ophthalmic complication (principal); M86.9 Osteomyelitis, unspecified
CPT/HCPCS: 36415; 80053; 83036; 84443; 85025; 85652; 86140

== ENCOUNTER → 2017-07-18 16:36 | Outpatient (CLI) | payer OTHER, MEDICARE, SELFPAY | PROVIDERS: Family Provider Family Medicine; PCP Family Medicine; Visit Provider Family Medicine | DX: R19.7 Diarrhea, unspecified (principal) | CPT/HCPCS: 87493 ==

== ENCOUNTER 2017-07-25 18:15 | Emergency (ER) | payer OTHER, MEDICARE, SELFPAY ==
[2017-07-25 18:17] VITALS: BP 175/66; PULSE 68; RESP 16; TEMP 36.3; O2SAT 98; BMI 33.7
--- NOTE | 2017-07-25 19:32 | ED.VISSUMM ---
- ER Visit Summary Date of Service: 07/25/17 Chief Complaint: Wound check History of Present Illness: The patient is a 72 F 6 week postop partial amputation right foot by Dr. Villarreal and Dr. Padgett status post IV antibiotics. However she is getting treated for C. difficile day 7. Diarrhea is improving. No abdominal pain. No fevers. History of diabetes. Patient states has been active over the past day on her feet, noticed increasing swelling around the distal foot today. There was clear drainage from one the wound areas. Denies any pain. She called Dr. Dayron guerin was sent to ED for evaluation. Physical Examination: General: Alert and oriented ?3, no acute distress HEENT: Normocephalic, atraumatic. Moist mucosa membranes Neck: supple, nontender. Cardiovascular: Regular rate and rhythm, no murmurs Respiratory: Normal breath sounds, symmetric, no distress Abdomen: Soft, nontender, nondistended Extremities: Nontender, no edema, pulses intact ?4 right lower extremity: Partial dentition distal foot. Wound was clean, dry, intact. There is no active drainage. Nontender to palpation. Slight erythema around the wound edges. Neuro: no focal neurological deficits. Test Results: [] Emergency Department Course and Treatment: Patient nontoxic, wound appears to be intact and healing. She states there is clear drainage there is no exudates. No pain or fevers. Currently getting treated for C. difficile. Discuss increasing risks to go back on antibiotics for recurrent C. difficile. At this time discussed with good serial exams would be good possible treatment plan for which she agrees. I spoke with Dr. Padgett, who states she can be seen in the office tomorrow for recheck of her foot. This was explained to the patient understands and agrees with plan. If any worsening symptoms to call or return for reevaluation. Treatment Plan: [] Disposition: Discharge Impression: 1. Wound check postop partial foot amputation This note was generated with [employer] dictation software. It may contain incorrect words, spelling, and punctuation that were not noted in review of the chart prior to signing ED Disposition - Plan for ED Patient: Disposition: Home or Assisted Living Chief Complaint: Lower Extremity Injury Diagnosis: Visit for wound check Instructions: Wound Care Referrals: Con Johnson MD [Primary Care Provider] - Ivanna Magana DPM [STAFF PHYSICIAN] - 1 Day for another exam
== END 2017-07-25 19:44 | disposition home or self-care (01) ==
PROVIDERS: Emergency Provider Emergency Medicine; Family Provider Family Medicine; PCP Family Medicine
DX: M79.89 Other specified soft tissue disorders (principal); Z89.431 Acquired absence of right foot; A04.72 Enterocolitis due to Clostridium difficile, not specified as recurrent; I25.10 Atherosclerotic heart disease of native coronary artery without angina pectoris; I25.2 Old myocardial infarction; E11.9 Type 2 diabetes mellitus without complications; I10 Essential (primary) hypertension; Z79.899 Other long term (current) drug therapy; Z79.02 Long term (current) use of antithrombotics/antiplatelets; Z79.82 Long term (current) use of aspirin; Z79.84 Long term (current) use of oral hypoglycemic drugs
CPT/HCPCS: 99282

== ENCOUNTER 2017-09-21 08:31 | Emergency (ER) | payer OTHER, MEDICARE, SELFPAY ==
[2017-09-21 08:32] VITALS: BP 176/70; PULSE 72; RESP 16; TEMP 36.6; O2SAT 95; BMI 31.8
--- NOTE | 2017-09-21 08:52 | EKG12_ITS ---
Test Reason : DYSRHYTHMIA Blood Pressure : / mmHG Vent. Rate : 063 BPM Atrial Rate : 063 BPM P-R Int : 170 ms QRS Dur : 092 ms QT Int : 406 ms P-R-T Axes : 053 -21 095 degrees QTc Int : 415 ms Normal sinus rhythm with sinus arrhythmia Nonspecific T wave abnormality Abnormal ECG Confirmed by HANNA ANAYA, HECTOR ([id number]), video news editor KRISTEN RUBI ([id number]) on 09/24/2017 1:59:21 PM Referred By: LIU Confirmed By:HECTOR FERREIAR MD
--- NOTE | 2017-09-21 08:59 | ED.VISSUMM ---
- ER Visit Summary Date of Service: 09/21/17 Chief Complaint: Anxiety History of Present Illness: The patient is a 72 F patient referred in the ED by PCP office today. Patient states has been in contact with PCP daily this past week. Increasing stress this past week. States she had to throw her son out of the house due to being alcoholic. 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 On Saturday was seen by PCP, started on Zoloft and hydroxyzine. 2 days ago had the addition of Depakote. Also on Tuesdays saw psychology, Karrie Durán, and again seen yesterday with behavioral therapy. Patient states on Saturday while in a car with friends, had a panic attack, required stopping the car. She states she got out. She briefly thought about stepping out in front of a truck. No history of self injuries. Denies any tobacco, alcohol, or illicit drug use. No auditory visual hallucinations. No diagnosed anxiety or depression history. She states she did speak with crisis on Saturday. Decreased sleep, decreased appetite. No homicidal ideations. Past medical history: Coronary disease, diabetes, hypertension, hyper cholesterolemia, hypothyroid, peripheral artery disease, anemia.. Physical Examination: General: Alert and oriented ?3, no acute distress HEENT: Normocephalic, atraumatic. Moist mucosa membranes Neck: supple, nontender. Cardiovascular: Regular rate and rhythm, no murmurs Respiratory: Normal breath sounds, symmetric, no distress Abdomen: Soft, nontender, nondistended Extremities: Nontender, no edema, pulses intact ?4.Right lower extremity: Partial foot amputation, healing scar. Neuro: no focal neurological deficits. Psych: Flat affect, anxious Test Results: EKG: Sinus rate of 63, no ST changes. T-wave inversion in aVL. CBC white count 8.9. Hemoglobin 13. Creatinine 1.55. Glucose 319. Anion gap 7. Liver enzymes normal. Tox screen positive for opiates. Alcohol negative. Depakote 24. TSH 1.28. UA leukocytes 500, white blood cell count 5-10. Urine culture pending. Emergency Department Course and Treatment: Patient presents anxiety depression with suicidal thoughts 4 days ago. Patient cooperative. EKG chronic changes compared to previous. She was given Ativan p.o. to help with symptoms. Medical clearance labs obtained. Tox noted opiates however she is on morphine tabs. Urine noted leukocytes and white blood cell counts. We discussion with the patient states she has decreased urine output along with malodorous urine. Urine culture sent. She will be placed on Keflex. States she recently was placed on amoxicillin, told likely not having a penicillin allergy. Depakote subtherapeutic at 24, this was started 2 days ago. TSH normal. Glucose was 319, anion gap was 7. Given 5 units subcu insulin. Creatinine chronic when compared to previous labs. Patient currently medically cleared. We will have [facility] evaluate to help with disposition. Glucose improved to 274. Patient evaluated by [facility]. Patient transferred to [facility] under service of Dr. Garrett at [facility]. Treatment Plan: [] Disposition: Discharge Impression: 1. Suicidal ideation with depression 2. Chronic kidney disease 3. UTI 4. Elevated glucose This note was generated with V[employer] dictation software. It may contain incorrect words, spelling, and punctuation that were not noted in review of the chart prior to signing ED Disposition - Plan for ED Patient: Disposition: Psychiatric Hospital or Unit Chief Complaint: Anxiety Diagnosis: Depression with suicidal ideation, Chronic kidney disease, UTI (urinary tract infection), Blood glucose elevated Referrals: Con Johnson MD [Primary Care Provider] -
--- NOTE | 2017-09-21 09:03 | ED.DCSUM_ITS ---
- ER Visit Summary Date of Service: 09/21/17 Chief Complaint: Anxiety History of Present Illness: The patient is a 72 F patient referred in the ED by PCP office today. Patient states has been in contact with PCP daily this past week. Increasing stress this past week. States she had to throw her son out of the house due to being alcoholic. 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 On Saturday was seen by PCP, started on Zoloft and hydroxyzine. 2 days ago had the addition of Depakote. Also on Tuesdays saw psychology, Karrie Durán, and again seen yesterday with behavioral therapy. Patient states on Saturday while in a car with friends, had a panic attack, required stopping the car. She states she got out. She briefly thought about stepping out in front of a truck. No history of self injuries. Denies any tobacco, alcohol, or illicit drug use. No auditory visual hallucinations. No diagnosed anxiety or depression history. She states she did speak with crisis on Saturday. Decreased sleep, decreased appetite. No homicidal ideations. Past medical history: Coronary disease, diabetes, hypertension, hyper cholesterolemia, hypothyroid, peripheral artery disease, anemia.. Physical Examination: General: Alert and oriented ?3, no acute distress HEENT: Normocephalic, atraumatic. Moist mucosa membranes Neck: supple, nontender. Cardiovascular: Regular rate and rhythm, no murmurs Respiratory: Normal breath sounds, symmetric, no distress Abdomen: Soft, nontender, nondistended Extremities: Nontender, no edema, pulses intact ?4.Right lower extremity: Partial foot amputation, healing scar. Neuro: no focal neurological deficits. Psych: Flat affect, anxious Test Results: EKG: Sinus rate of 63, no ST changes. T-wave inversion in aVL. CBC white count 8.9. Hemoglobin 13. Creatinine 1.55. Glucose 319. Anion gap 7. Liver enzymes normal. Tox screen positive for opiates. Alcohol negative. Depakote 24. TSH 1.28. UA leukocytes 500, white blood cell count 5-10. Urine culture pending. Emergency Department Course and Treatment: Patient presents anxiety depression with suicidal thoughts 4 days ago. Patient cooperative. EKG chronic changes compared to previous. She was given Ativan p.o. to help with symptoms. Medical clearance labs obtained. Tox noted opiates however she is on morphine tabs. Urine noted leukocytes and white blood cell counts. We discussion with the patient states she has decreased urine output along with malodorous urine. Urine culture sent. She will be placed on Keflex. States she recently was placed on amoxicillin, told likely not having a penicillin allergy. Depakote subtherapeutic at 24, this was started 2 days ago. TSH normal. Glucose was 319 , anion gap was 7. Given 5 units subcu insulin. Creatinine chronic when compared to previous labs. Patient currently medically cleared. We will have [facility] [place] to help with disposition. Glucose improved to 274. Patient evaluated [place] [facility] Patient transferred to [facility] under service of Dr. Garrett at [facility]. Treatment Plan: [] Disposition: Discharge Impression: 1. Suicidal ideation with depression 2. Chronic kidney disease 3. UTI 4. Elevated glucose This note was generated with [employer] dictation software. It may contain incorrect words, spelling, and punctuation that were not noted in review of the chart prior to signing ED Disposition - Plan for ED Patient: Disposition: Psychiatric Hospital or Unit Chief Complaint: Anxiety Diagnosis: Depression with suicidal ideation, Chronic kidney disease, UTI (urinary tract infection), Blood glucose elevated Referrals: Con Johnson MD [Primary Care Provider] -
[2017-09-21] MEDS: LORazepam 0.5 MG Tablet PO ×2 (09:06→14:56)
[2017-09-21 09:08] LABS: Mucous, Urine 0 SEEN /hpf (<or=2+)
[2017-09-21 09:12] LABS: Color, Urine Yellow (Yellow); Glucose, Dipstick 250 mg/dl (Normal); Ketone-Dipstick Negative (Negative); Leukocyte Esterase-Dipstick 500 /ul (Negative); Nitrite-Dipstick Negative (Negative); Occult Blood-Urine 25 /ul (Negative); Protein-Dipstick 100 mg/dl (Negative); Urine Bilirubin Dipstick Negative (Negative); Urine Clarity Sl. Cloudy (Clear); Urine Urobilinogen Normal (Normal); Urine pH 6.5 (5.0 - 8.0)
[2017-09-21 09:19] LABS: Bacteria 1+ /hpf (None Seen); Red Blood Cells-Urine 0-5 SEEN /hpf (0-5); Squamous Epithelial Cells - UA 0-5 SEEN /hpf (5-10); White Blood Cells 5-10 SEEN /hpf (0-5)
[2017-09-21 09:24] LABS: Amphetamine Urine VISTA NEGATIVE (<1000 ng/mL); Barbiturate Urine VISTA NEGATIVE (< 200 ng/mL); Benzodiazepine Urine VISTA NEGATIVE (< 200 ng/mL); Cocaine Urine VISTA NEGATIVE (< 300 ng/mL); Ecstacy Urine VISTA NEGATIVE (< 500 ng/mL); Methadone Urine VISTA NEGATIVE (< 300 ng/mL); PCP Urine VISTA NEGATIVE (< 25 ng/mL); THC Urine VISTA NEGATIVE (< 50 ng/mL); Vista UDS pH Range 6
[2017-09-21 09:36] VITALS: RESP 16; O2SAT 94
--- NOTE | 2017-09-21 09:44 | ED.RN ---
pt brought home medications with her including prescribed narcotic. home med list obtained and took medications and locked them in the car.
[2017-09-21 09:49] LABS: Absolute Lymphocyte Count 1.14 X10^3/ul (0.83-4.51); Absolute Neutrophil Count 7.1 X10^3/uL (2.0-7.7); Basophil# 0.03 X10^3/uL; Basophil% 0.3 % (0-1); Eosinophil# 0.09 X10^3/uL; Hematocrit 40.7 % (37-47); Lymphocyte # 1.14 X10^3/ul (4.0); Lymphocyte % 12.8 % (19-41); Mean Corp Hgb Conc 31.9 g/gl (32-36); Mean Corpuscular Volume 78.1 fL (81-99); Mean Platelet Vol. 9.7 fl (6.2-12.0); Monocyte# 0.53 X10^3/uL; Monocyte% 5.9 % (0-10); Neutrophil # 7.14 X10^3/uL (2.7-7.7); Neutrophil % 79.9 % (47-70); Platelet Count 257 K/mm3 (150-450); RBC Distribution Width SD 42.8 fl (35.1-43.9); Red Blood Count 5.21 M/mm3 (4.2-5.4); White Blood Count 8.9 K/mm3 (4.4-11.0)
[2017-09-21 09:50] LABS: POSITIVE COUNT NO; POSITIVE DIFFERENTIAL NO; POSITIVE MORPHOLOGY NO
[2017-09-21 09:56] LABS: ALB/GLOB Ratio 0.7 RATIO (0.9-2.4); Albumin, Serum 3.3 g/dL (3.2-5.0); BUN 36 mg/dL (7-18); BUN/Creat Ratio 23.2 RATIO (10-20); Calcium,Total 8.4 mg/dL (8.5-10.1); Creatinine, Serum 1.55 mg/dL (0.55-1.02); EST Glomerular Filtration Rate 35 mL/min (>60); Est Glom Filt Rate - Afr Amer 43 mL/min (>60); Estimated Creatinine Clearance 27.94 ml/min; Globulin 4.6 g/dL (2.2-4.2); Glucose 319 mg/dL (74-106); Protein, Total 7.9 g/dL (6.4-8.2)
[2017-09-21 09:57] LABS: AST(SGOT) 12 U/L (15-37); Alanine Aminotransfer ALT/SGPT 16 U/L (13-56); Alkaline Phosphatase 117 U/L (45-117); Anion Gap 7 (5-15); Chloride 105 mmol/L (98-107); Potassium 4.2 mmol/L (3.5-5.1); Sodium Level 137 mmol/L (136-145); Thyroid Stim Hormone (TSH) 1.28 uIU/mL (0.358-3.74)
[2017-09-21 10:06] LABS: Valproic Acid (Depakene) Level 24 ug/mL (50-100)
[2017-09-21] MEDS: Cephalexin 250 MG Capsule 500 MG PO (10:14)
--- NOTE | 2017-09-21 10:54 | ED.RN ---
ANNA FROM CRISIS HERE
[2017-09-21 11:00] VITALS: RESP 16
[2017-09-21 11:46] LABS: Bedside Glucose 274 mg/dL (70-110)
[2017-09-21 11:48] VITALS: BP 170/59; PULSE 75; RESP 18; O2SAT 93
--- NOTE | 2017-09-21 11:50 | ED.RN ---
ANNA FROM CRISIS HERE. PT AGREEABLE TO PLACEMENT ON A VOLUNTARY BASIS. CRISIS CONTEMPLATING SENDING PT HOME. DR HATFIELD AND NURSING STAFF UNCOMFORTABLE WITH PLAN BASED ON STATEMENTS MADE BY PT CONCERNING HER SAFETY. FOR EX. PT STATED SHE HAS HAD DESIRE TO PULL CAR INTO ONCOMING TRAFFIC, SHE HAS CONTEMPLATED STEPPING IN FRONT OF A BUS. PT HAS CONSIDERED TAKING ALL HER MEDICATIONS.
[2017-09-21 12:49] VITALS: RESP 18
--- NOTE | 2017-09-21 13:59 | NURSING ---
FACILITY SENDING THEIR SQUAD PER EDUCATIONAL AIDE
[2017-09-21 15:00] VITALS: BP 156/72; PULSE 80; RESP 18; O2SAT 97
--- NOTE | 2017-09-21 15:18 | NURSING ---
Report given to Paty MADISON clinical liaison and to Ladonna MADISON, staff nurse. both at [facility]
== END 2017-09-21 15:41 ==
PROVIDERS: Emergency Provider Emergency Medicine; Family Provider Family Medicine; PCP Family Medicine
DX: F32.9 Major depressive disorder, single episode, unspecified (principal); R45.851 Suicidal ideations; I12.9 Hypertensive chronic kidney disease with stage 1 through stage 4 chronic kidney disease, or unspecified chronic kidney disease; E11.22 Type 2 diabetes mellitus with diabetic chronic kidney disease; N18.9 Chronic kidney disease, unspecified; E11.65 Type 2 diabetes mellitus with hyperglycemia; E03.9 Hypothyroidism, unspecified; D64.9 Anemia, unspecified; I73.9 Peripheral vascular disease, unspecified; Z79.02 Long term (current) use of antithrombotics/antiplatelets; Z79.82 Long term (current) use of aspirin; Z79.4 Long term (current) use of insulin; Z79.899 Other long term (current) drug therapy; Z86.73 Personal history of transient ischemic attack (TIA), and cerebral infarction without residual deficits; Z95.1 Presence of aortocoronary bypass graft; Z89.431 Acquired absence of right foot
CPT/HCPCS: 80053; 80164; 80307; 80320; 81001; 82962; 84443; 85025; 87086; 87088; 93005; 99285; G0480

== ENCOUNTER → 2017-12-20 09:16 | Outpatient (CLI) | payer OTHER, MEDICARE, SELFPAY ==
[2017-12-20 11:19] LABS: Absolute Lymphocyte Count 1.96 X10^3/ul (0.83-4.51); Basophil# 0.02 X10^3/uL; Basophil% 0.3 % (0-1); Eosinophil# 0.31 X10^3/uL; Eosinophils% 4.4 % (0-5); Hematocrit 35.3 % (37-47); Hemoglobin 10.7 g/dl (12.0-15.0); Lymphocyte # 1.96 X10^3/ul (4.0); Mean Corp Hgb Conc 30.3 g/gl (32-36); Mean Corpuscular Hgb 24.5 pg (27.0-32.0); Mean Platelet Vol. 9.6 fl (6.2-12.0); Monocyte# 0.66 X10^3/uL; Monocyte% 9.4 % (0-10); Neutrophil # 4.04 X10^3/uL (2.7-7.7); Neutrophil % 57.8 % (47-70); Platelet Count 200 K/mm3 (150-450); RBC Distribution Width CV 16.7 % (11.6-14.6); RBC Distribution Width SD 49.6 fl (35.1-43.9); Red Blood Count 4.36 M/mm3 (4.2-5.4)
[2017-12-20 11:26] LABS: POSITIVE COUNT NO; POSITIVE DIFFERENTIAL NO; POSITIVE MORPHOLOGY NO
[2017-12-20 11:58] LABS: ALB/GLOB Ratio 0.7 RATIO (0.9-2.4); AST(SGOT) 15 U/L (15-37); Alanine Aminotransfer ALT/SGPT 22 U/L (13-56); Albumin, Serum 3.1 g/dL (3.2-5.0); Alkaline Phosphatase 105 U/L (45-117); Anion Gap 10 (5-15); BUN 38 mg/dL (7-18); BUN/Creat Ratio 22.2 RATIO (10-20); Calcium,Total 8.7 mg/dL (8.5-10.1); Chloride 103 mmol/L (98-107); Creatinine, Serum 1.71 mg/dL (0.55-1.02); EST Glomerular Filtration Rate 31 mL/min (>60); Est Glom Filt Rate - Afr Amer 38 mL/min (>60); Globulin 4.5 g/dL (2.2-4.2); Glucose 267 mg/dL (74-106); Lipase 36 U/L (73-393); Magnesium 2.2 mg/dL (1.6-2.6); Protein, Total 7.6 g/dL (6.4-8.2); Sodium Level 139 mmol/L (136-145)
== END ==
LOC: MFPLAB 15:30 → LABSPEC 15:32
PROVIDERS: Family Provider Family Medicine; PCP Family Medicine; Visit Provider Family Medicine
DX: R19.7 Diarrhea, unspecified (principal)
CPT/HCPCS: 36415; 80053; 83690; 83735; 85025; 87506

== ENCOUNTER → 2018-01-13 12:39 | Outpatient (CLI) | payer MEDICARE, OTHER, SELFPAY | PROVIDERS: Family Provider Family Medicine; PCP Family Medicine; Visit Provider Nurse Practitioner Family | DX: R07.9 Chest pain, unspecified (principal); I25.10 Atherosclerotic heart disease of native coronary artery without angina pectoris; Z95.5 Presence of coronary angioplasty implant and graft; Z95.1 Presence of aortocoronary bypass graft | CPT/HCPCS: 93017; 93350; J7030; Q9957; A4216; C8928 ==

== ENCOUNTER → 2018-01-15 14:32 | Outpatient (CLI) | payer MEDICARE, OTHER, SELFPAY ==
[2018-01-15 15:44] LABS: Absolute Lymphocyte Count 1.55 X10^3/ul (0.83-4.51); Absolute Neutrophil Count 5.5 X10^3/uL (2.0-7.7); Basophil# 0.02 X10^3/uL; Basophil% 0.3 % (0-1); Eosinophils% 1.3 % (0-5); Hematocrit 38.7 % (37-47); Lymphocyte # 1.55 X10^3/ul (4.0); Lymphocyte % 20.5 % (19-41); Mean Corpuscular Hgb 24.7 pg (27.0-32.0); Mean Corpuscular Volume 79.8 fL (81-99); Mean Platelet Vol. 10.3 fl (6.2-12.0); Monocyte# 0.37 X10^3/uL; Monocyte% 4.9 % (0-10); Neutrophil # 5.49 X10^3/uL (2.7-7.7); Neutrophil % 72.7 % (47-70); Platelet Count 245 K/mm3 (150-450); RBC Distribution Width CV 15.3 % (11.6-14.6); RBC Distribution Width SD 44.1 fl (35.1-43.9); Red Blood Count 4.85 M/mm3 (4.2-5.4); White Blood Count 7.6 K/mm3 (4.4-11.0)
[2018-01-15 15:45] LABS: POSITIVE COUNT NO; POSITIVE DIFFERENTIAL NO; POSITIVE MORPHOLOGY NO
[2018-01-15 16:00] LABS: Erythrocyte Sedimentation Rate 37 mm/hr (0-30)
[2018-01-15 16:11] LABS: ALB/GLOB Ratio 0.8 RATIO (0.9-2.4); AST(SGOT) 18 U/L (15-37); Alanine Aminotransfer ALT/SGPT 18 U/L (13-56); Albumin, Serum 3.4 g/dL (3.2-5.0); Alkaline Phosphatase 140 U/L (45-117); Anion Gap 13 (5-15); BUN 26 mg/dL (7-18); CRP < 2.90 mg/L (0.0-3.0); Calcium,Total 8.7 mg/dL (8.5-10.1); Chloride 101 mmol/L (98-107); Creatinine, Serum 1.53 mg/dL (0.55-1.02); EST Glomerular Filtration Rate 36 mL/min (>60); Est Glom Filt Rate - Afr Amer 43 mL/min (>60); Ferritin 10 ng/mL (8-252); Globulin 4.3 g/dL (2.2-4.2); Glucose 355 mg/dL (74-106); Magnesium 2.1 mg/dL (1.6-2.6); Potassium 4.7 mmol/L (3.5-5.1); Protein, Total 7.7 g/dL (6.4-8.2); Sodium Level 136 mmol/L (136-145)
== END ==
PROVIDERS: Family Provider Family Medicine; PCP Family Medicine; Visit Provider Family Medicine
DX: G89.29 Other chronic pain (principal)
CPT/HCPCS: 36415; 80053; 82728; 83735; 85025; 85652; 86140

== ENCOUNTER 2018-03-19 13:00 | Outpatient (RCR) | payer MEDICARE, OTHER, SELFPAY ==
--- NOTE | 2018-03-10 10:51 | HP.OTEVAL ---
Patient's Visit Information SEBASTIÁN REYES is a 72 year old F, referred to Occupational Therapy by Con Johnson, with a diagnosis of Muscle and arm pain. Date of Evaluation: 03/10/18 Occupational Therapist: Melissa Sorensen - Subjective Subjective: Arrived for OT evaluation. Noted that she has numbness and tingling in hands and noted this has been going on for a year. Noted neuropathy in feet and hands. Notes pain is at its worse at night and wears wrist cock up braces B hands. She had CABG about 3 years ago and has recently had forefoot amputated of May this year. Has PMHx of DM- type 1 per Pt. report. - Pain Bilateral Hand 3 Pain Intensity Range: 2, 9 - ROM Shoulder: WFL Elbow: WFL Forearm: WFL Wrist: WFL MP: WFL PIP: WFL DIP: WFL ROM Comments: ROM is WFL . - Strength Typewriter Mechanic: R 32, L 28 lbs Lateral Pinch: R 11, L 8 lbs Tripod Pinch: R 8, L 7 lbs Tip-to-Tip Pinch: R 5, L 4 lbs Intrinsics: between 2nd and 3rd R 4/5, L 4-/5; between 3rd and 4thR 4/5, L 4-/5; Strength Comments: intrinsic 4th and 5th R 4/5, L 4-/5; - Edema Other: none noted at this time. - Sensation Thumb: R 3.22, L 3.22 Index: R 3.22, L 3.22 Middle: R 3.22, L 4.08 Ring: R 2.83, L 2.83 Little: R 2.83, L 2.83 Kinesthesia: Normal - Right, Normal - Left - Nine Hole Peg Right: 22.30 s Left: 23.76 s - In-Hand Manipulation Finger to Palm Translation: Mild - Right, Moderate - Right, Mild - Left Palm to Finger Translation: Mild - Right, Mild - Left Shift: Moderate - Right, Moderate - Left Rotation: Mild - Right, Normal - Left - Special Tests Phalen's (Carpal Tunnel): Negative- no changes noted by Pt. Tinel's: Negative- no changes noted by Pt. Median Nerve Compression Test: Postive - DASH-Disabilities of Arm, Shoulder& Hand DASH Sum: 87 - Hand/Wrist Evaluation Total Score of Pain & Functional Sections: 45 - Goals Goal:: Pt. to increase craft manager by 15-20 lbs to promote increased ability to manipulate self care tasks by d/c. Goal:: Pt. to use sensory compensations to promote increased ability to manipulate self care tasks as shown through decreased time of 9 hole pegbaoird test by d/c. Goal:: Pt. to be (I) to complete sensory compensations and adaptations to promote increased (I) with ADl/IADls to promote to returning to PLOF by d/c . Goal:: Pt. to be mod I to return to PLOF for all ADL/IADLS including buttoning tasks 4/5 trials 805 of the time to promote (i) and ability to return to PLOF by d/c. Goal:: Pt. to be mod I to complete HEP and sensory compensations to promote increased (I) 4/5 trials 80% of the time to increased returning to pLOF and promote QOL by d/c. - Rehabilitation General Assessment: Evaluation completed on this date of 03/10/18. Sebastián has h/o of neuropathy and reports having DM type 1. She has increased neuropathy in B feet with R foot having increased symptoms from forefoot amputation. ROM and strength of hands are decreased. Sensation of B hands show slight signs of decreased light touch and protective reflexes through monofilament testing. Will complete training in sensory deficits and strengthening to promote increased ability to manipulate self-care tasks by d/c. Rehabilitation Potential: Good - Anticipated Interventions Anticipated Interventions: A/AAROM/PROM, Strengthening, Joint Protection/Energy Conservation, Ergonomic Education, Fine Motor Coord/Tom, Neuro Reeducation, ADL Training, Education re assistive Equipment, Caregiver Training, Home Program - Visit Plan Frequency: 2x /Week Duration: 4 Weeks General Plan: OT to provided median nerve glides, ROm, and strengthening exercises as well as adaptation and compensations for sensory related deficits. TEXT: Thank you for the opportunity to evaluate your patient. For Medicare and Medicare HMO plans, please review the plan of care and approve it. It will need to be FAXED BACK to us at [phone] for Medicare purposes. Please let me know if there are questions or concerns regarding this plan of care. Physician Signature: Date:
--- NOTE | 2018-05-22 15:05 | HP.OT.NRP ---
HP - Discharge Summary - Patient Information SEBASTIÁN REYES was seen in my office for initial evaluation on 03/10/18. The following Plan of Care was established for this patient: Initial Frequency: 2x /Week Initial Duration: 4 Weeks Plan: continue POC. - Anticipated Interventions Anticipated Interventions: A/AAROM/PROM, Strengthening, Joint Protection/Energy Conservation, Ergonomic Education, Fine Motor Coord/Tom, Neuro Reeducation, ADL Training, Education re assistive Equipment, Caregiver Training, Home Program This patient was last seen in our office 03/19/18. Pertinent comments regarding their Occupational therapy will appear below: Pt. was to continue POC but did not attend or canceled remaining appointments and will be discharged at this time. At this point I will be discontinuing this patient from occupational therapy. I would be happy to see this patient again in the future if found appropriate by the physician. Thank you! Melissa Sorensen
== END 2018-03-19 19:00 | disposition home or self-care (01) ==
LOC: OT 13:00
PROVIDERS: Family Provider Family Medicine; PCP Family Medicine; Referring Provider Family Medicine; Visit Provider Family Medicine
DX: G89.4 Chronic pain syndrome (principal); M79.10 Myalgia, unspecified site; M79.603 Pain in arm, unspecified
CPT/HCPCS: 97110; 97166; 97530; G8987; G8988

== ENCOUNTER → 2018-04-02 11:42 | Outpatient (CLI) | payer MEDICARE, OTHER, SELFPAY ==
--- NOTE | 2018-04-02 11:53 | RAD_ITS ---
STUDY: X-RAY - RIGHT FOOT CLINICAL: Female, 72 years old. Pain and redness and warmth right foot. History of gout. TECHNIQUE: 3 view(s) of the foot. COMPARISON: None. FINDINGS: Normal talus, calcaneus, and tarsal bones. Normal visualized subtalar, talonavicular, calcaneocuboid, tarsal and tarsometatarsal articulations. Normal metatarsi. Normal metatarsophalangeal joint of the great toe. Normal tibial and fibular sesamoid bones. Normal interphalangeal joint of the great toe. Normal phalanges of the great toe. Normal second through fifth metatarsophalangeal joints. Normal interphalangeal joints and phalanges of the lesser toes. The soft tissue structures are unremarkable. RAD/Foot min 3 Views IMPRESSION: Normal x-ray examination of the foot. Electronically Signed: Miah Brown MD at 16:42 EST , Service support ,
[2018-04-02 14:32] LABS: Erythrocyte Sedimentation Rate 38 mm/hr (0-30)
[2018-04-02 14:35] LABS: Absolute Lymphocyte Count 1.61 X10^3/ul (0.83-4.51); Absolute Neutrophil Count 11.2 X10^3/uL (2.0-7.7); Basophil# 0.02 X10^3/uL; Basophil% 0.1 % (0-1); Eosinophil# 0.05 X10^3/uL; Eosinophils% 0.4 % (0-5); Hematocrit 40.2 % (37-47); Hemoglobin 12.6 g/dl (12.0-15.0); Lymphocyte # 1.61 X10^3/ul (4.0); Lymphocyte % 11.5 % (19-41); Mean Corp Hgb Conc 31.3 g/gl (32-36); Mean Corpuscular Volume 79.6 fL (81-99); Monocyte# 1.11 X10^3/uL; Monocyte% 7.9 % (0-10); Neutrophil # 11.22 X10^3/uL (2.7-7.7); POSITIVE COUNT NO; POSITIVE DIFFERENTIAL NO; POSITIVE MORPHOLOGY NO; Platelet Count 251 K/mm3 (150-450); RBC Distribution Width CV 16.8 % (11.6-14.6); RBC Distribution Width SD 48.2 fl (35.1-43.9); Red Blood Count 5.05 M/mm3 (4.2-5.4)
[2018-04-02 14:39] LABS: ALB/GLOB Ratio 0.8 RATIO (0.9-2.4); AST(SGOT) 12 U/L (15-37); Alanine Aminotransfer ALT/SGPT 16 U/L (13-56); Albumin, Serum 3.4 g/dL (3.2-5.0); Alkaline Phosphatase 98 U/L (45-117); Anion Gap 8 (5-15); BUN 36 mg/dL (7-18); BUN/Creat Ratio 23.8 RATIO (10-20); Calcium,Total 9.3 mg/dL (8.5-10.1); Chloride 101 mmol/L (98-107); Creatinine, Serum 1.51 mg/dL (0.55-1.02); EST Glomerular Filtration Rate 36 mL/min (>60); Est Glom Filt Rate - Afr Amer 44 mL/min (>60); Globulin 4.2 g/dL (2.2-4.2); Glucose 79 mg/dL (74-106); Potassium 5.1 mmol/L (3.5-5.1); Protein, Total 7.6 g/dL (6.4-8.2); Sodium Level 138 mmol/L (136-145); Uric Acid 6.2 mg/dL (2.6-6.0)
== END ==
PROVIDERS: Family Provider Family Medicine; PCP Family Medicine; Referring Provider Family Medicine; Visit Provider Family Medicine
DX: M25.475 Effusion, left foot (principal)
CPT/HCPCS: 36415; 73630; 80053; 84550; 85025; 85652; 86140

== ENCOUNTER → 2018-05-01 14:11 | Outpatient (CLI) | payer MEDICARE, OTHER, SELFPAY ==
[2018-05-01 15:27] LABS: Absolute Lymphocyte Count 1.17 X10^3/ul (0.83-4.51); Absolute Neutrophil Count 7.5 X10^3/uL (2.0-7.7); Basophil# 0.01 X10^3/uL; Basophil% 0.1 % (0-1); Eosinophil# 0.17 X10^3/uL; Eosinophils% 1.7 % (0-5); Hematocrit 38.1 % (37-47); Hemoglobin 12.1 g/dl (12.0-15.0); Lymphocyte # 1.17 X10^3/ul (4.0); Lymphocyte % 11.9 % (19-41); Mean Corp Hgb Conc 31.8 g/gl (32-36); Mean Corpuscular Hgb 25.4 pg (27.0-32.0); Mean Platelet Vol. 10.5 fl (6.2-12.0); Monocyte% 9.2 % (0-10); Neutrophil # 7.54 X10^3/uL (2.7-7.7); Neutrophil % 76.9 % (47-70); Platelet Count 254 K/mm3 (150-450); RBC Distribution Width CV 16.8 % (11.6-14.6); RBC Distribution Width SD 47.8 fl (35.1-43.9); Red Blood Count 4.76 M/mm3 (4.2-5.4); White Blood Count 9.8 K/mm3 (4.4-11.0)
[2018-05-01 15:30] LABS: POSITIVE COUNT NO; POSITIVE DIFFERENTIAL NO; POSITIVE MORPHOLOGY NO
[2018-05-01 16:02] LABS: Vitamin D,25 Hydroxy 15.7 ng/mL (29.95-100.01)
== END ==
PROVIDERS: Family Provider Family Medicine; PCP Family Medicine; Referring Provider Podiatrist; Visit Provider Podiatrist
DX: A52.16 Charcot's arthropathy (tabetic) (principal); L03.116 Cellulitis of left lower limb; E11.9 Type 2 diabetes mellitus without complications
CPT/HCPCS: 36415; 82306; 85025; 86140

== ENCOUNTER → 2018-05-09 10:21 | Outpatient (CLI) | payer MEDICARE, OTHER, SELFPAY ==
[2018-05-08 13:24] VITALS: BMI 32.4
[2018-05-09 10:32] VITALS: BP 150/66; PULSE 84; RESP 16; TEMP 35.5; O2SAT 99; BMI 32.2
--- OUTSIDE RECORDS SUMMARY | 2018-06-25 01:18 | XMS RPT_ITS ---
:1945 Author Organization OHIP Support Name Relationship Address Phone ARNHOLT, MADISON Unavailable [address] + [place] [address] R Unavailable Unavailable Unavailable RY SEAY Unavailable [address] + [place] [address] ARNHOLT, MADISON Unavailable [address] + [place] [address] R Unavailable Unavailable Unavailable RY SEAY Unavailable [address] + [place] [address] ARNHOLT, MADISON Unavailable [address] + [place] [address] R Unavailable Unavailable Unavailable RY SEAY Unavailable [address] + [place] [address] ARNHOLT, MADISON Unavailable [address] + [place] [address] R Unavailable Unavailable Unavailable RY SEAY Unavailable [address] + [place] [address] ARNHOLT, MADISON Unavailable Unavailable + R Unavailable Unavailable Unavailable RY SEAY Unavailable [address] + [place] [address] ARNHOLT, MADISON Unavailable . + ., . . R Unavailable Unavailable Unavailable RY SEAY Unavailable [address] + [place] [address] ARNHOLT, MADISON Unavailable Unavailable + R Unavailable Unavailable Unavailable RY SEAY Unavailable [address] + [place] [address] ARNHOLT, MADISON Unavailable . + [place] [address] R Unavailable Unavailable Unavailable ERIC, RY Unavailable [address] + [place] [address] ARNHOLT, MADISON Unavailable Unavailable + [place] [address] R Unavailable Unavailable Unavailable ERIC, RY Unavailable [address] + [place] [address] ARNHOLT, MADISON Unavailable Unavailable + [place] [address] R Unavailable Unavailable Unavailable ERIC, RY Unavailable [address] + [place] [address] ARNHOLT, MADISON Unavailable Unavailable + [place] [address] R Unavailable Unavailable Unavailable ERIC, RY Unavailable [address] + [place] [address] ARNHOLT, MADISON Unavailable . + ., . . R Unavailable Unavailable Unavailable ERIC, RY Unavailable [address] + [place] [address] ARNHOLT, MADISON Unavailable Unavailable + [place] [address] R Unavailable Unavailable Unavailable ERIC, RY Unavailable [facility] [address] + [place] [address] ARNHOLT, MADISON Unavailable Unavailable + [place] [address] R Unavailable Unavailable Unavailable ERIC, RY Unavailable [address] + [place] [address] ARNHOLT, MADISON Unavailable Unavailable + [place] [address] R Unavailable Unavailable Unavailable ERIC, RY Unavailable [address] + [place] [address] ARNHOLT, MADISON Unavailable . + [place] [address] R Unavailable Unavailable Unavailable ERIC, RY Unavailable [address] + [place] [address] ARNHOLT, MADISON Unavailable . + [place] [address] R Unavailable Unavailable Unavailable ERIC, RY Unavailable [address] + [place] [address] ARNHOLT, MADISON Unavailable . + [place] [address] R Unavailable Unavailable Unavailable ERIC, RY Unavailable [address] [phone] [place] [address] ARNHOLT, MADISON Unavailable . + [place] [address] R Unavailable Unavailable Unavailable ERIC, RY Unavailable [address] [phone] [place] [address] ARNHOLT, MADISON Unavailable . + [place] [address] R Unavailable Unavailable Unavailable ERIC RY Unavailable [address] [phone] [place] [address] ARNHOLT, MADISON Unavailable . + [place] [address] R Unavailable Unavailable Unavailable ERIC, RY Unavailable . + [place] [address] ARNHOLT, MADISON Unavailable . + [place] [address] R Unavailable Unavailable Unavailable ERIC, RY Unavailable [address] [phone] [place] [address] ARNHOLT, MADISON Unavailable Unavailable + R Unavailable Unavailable Unavailable RICHARD SEAYALD Unavailable Unavailable + ARNHOLT, [place] Unavailable NA + [place], [place] R Unavailable Unavailable Unavailable ERICRICHARD VILLARREALALD Unavailable NA + [place], [place] Care Team Providers Name Role Phone Ivanna Magana Attending Unavailable Johnson, Con Primary Care Unavailable Claus Hatfield Attending Unavailable Johnson, Con Referring Unavailable Ivanna Magana Attending Unavailable Ivanna Magana Referring Unavailable Johnson, Con Primary Care Unavailable Maribell Chau Attending Unavailable Johnson, Con Referring Unavailable Ivanna Magana Attending Unavailable Johnson, Con Primary Care Unavailable Johnson, Con Primary Care Unavailable Clemente Eduardo Attending Unavailable Victor Manuel, Adolfo Chi Admitting Unavailable Victor Manuel, Adolfo Chi Attending Unavailable Johnson, Con Primary Care Unavailable Ivanna Magana Consulting Unavailable Johnson, Con Attending Unavailable Johnson, Con Primary Care Unavailable Lars Wahl Attending Unavailable Johnson, Con Referring Unavailable Johnson, Con Primary Care Unavailable Johnson, Con Attending Unavailable Johnson, Con Primary Care Unavailable Johnson, Con Primary Care Unavailable Bautista Salas Attending Unavailable Fascione, Ivanna Referring Unavailable Johnson, Con Primary Care Unavailable Ashelfah, Ghasem Consulting Unavailable Fascione, Ivanna Admitting Unavailable KotsoniCarlos phippsChris F Attending Unavailable Fascione, Ivanna Consulting Unavailable Fascione, Ivanna Admitting Unavailable Demetris, Ovi Attending Unavailable Fascione, Ivanna Referring Unavailable Johnson, Con Primary Care Unavailable Ashelfah, Ghasem Consulting Unavailable Fascione, Ivanna Consulting Unavailable Fascione, Ivanna Admitting Unavailable Kotsonis, Chris F Attending Unavailable Fascione, Ivanna Referring Unavailable Johnson, Con Primary Care Unavailable Ashelfah, Ghasem Consulting Unavailable Fascione, Ivanna Consulting Unavailable Kotsonis, Chris F Consulting Unavailable Johnson, Con Primary Care Unavailable Bautista Salas Attending Unavailable Johnson, Con Attending Unavailable Johnson, Con Primary Care Unavailable Lars Wahl Attending Unavailable Johnson, Con Primary Care Unavailable Johnson, Con Attending Unavailable Johnson, Con Primary Care Unavailable Claus Hatfield Attending Unavailable Johnson, Con Referring Unavailable Claus Hatfield Attending Unavailable Lars Wahl Referring Unavailable Johnson, Con Attending Unavailable Johnson, Con Referring Unavailable Johnson, Con Primary Care Unavailable Johnson, Con Attending Unavailable Johnson, Con Primary Care Unavailable Johnson, Con Referring Unavailable Fascione, Ivanna Attending Unavailable Fascione, Ivanna Referring Unavailable Johnson, Con Primary Care Unavailable Demetris, Ovi Admitting Unavailable Johnson, Con Primary Care Unavailable Fascione, Ivanna Consulting Unavailable Con Hernandez Attending Unavailable Adam Webb Consulting Unavailable PROBLEMS PROBLEMS DATE TYPE CONDITION / CODE ATTENDING STATUS SOURCE 06/18/2018 Unknown M14.672 - Charcot's Kotsonis, Active [place] joint, left ankle and Chris F Community foot / Hospital M14.672(ICD-10) Repository 06/10/2018 Unknown M79.672 - Pain in Lowe, Clemente Active [place] left foot / Community M79.672(ICD-10) Hospital Repository 06/06/2018 Unknown L97.522 - Fascione, Active [place] Non-pressure chronic Ivanna Community ulcer of other part Hospital of left foot with fat Repository layer exposed / L97.522(ICD-10) 05/08/2018 Unknown I63.9 - Cerebral Claus Hatfield Active [place] infarction, Community unspecified / Hospital I63.9(ICD-10) Repository 05/08/2018 Unknown Z86.73 - Personal Claus Hatfield Active [place] history of transient Community ischemic attack Hospital (TIA), and cerebral Repository infarction without residual deficits / Z86.73(ICD-10) 05/08/2018 Unknown I77.9 - Disorder of Claus Hatfield Active [place] arteries and Community arterioles, Hospital unspecified / Repository I77.9(ICD-10) 05/08/2018 Unknown Z95.5 - Presence of Liu Claus Active [facility] coronary angioplasty Community implant and graft / Hospital Z95.5(ICD-10) Repository 05/08/2018 Unknown I25.10 - Liu Claus Active [place] Atherosclerotic heart Community disease of [place] [facility] coronary artery Repository without angina pectoris / I25.10(ICD-10) 05/08/2018 Unknown E78.5 - Claus Hatfield Active [place] Hyperlipidemia, Community unspecified / Hospital E78.5(ICD-10) Repository 05/02/2018 Unknown L03.116 - Cellulitis Fascione, Active [place] of left lower limb / [facility] L03.116(ICD-10) Hospital Repository 04/02/2018 Unknown M25.475 - Effusion, Con Johnson Active [place] left foot / Community M25.475(ICD-10) Hospital Repository 05/26/2018 Unknown G89.4 - Chronic pain Johnson, Con Active [place] syndrome / Community G89.4(ICD-10) Hospital Repository 05/26/2018 Unknown M79.10 - Myalgia, Alex, Con Active [place] unspecified site / Community M79.10(ICD-10) Hospital Repository 05/26/2018 Unknown M79.603 - Pain in Alex, Con Active [place] arm, unspecified / Community M79.603(ICD-10) Hospital Repository 03/17/2018 Unknown Z95.1 - Presence of Liu Claus Active [place] aortocoronary bypass Community graft / Z95.1(ICD-10) Hospital Repository 03/17/2018 Unknown E78.2 - Mixed Claus Hatfield Active [place] hyperlipidemia / Community E78.2(ICD-10) Hospital Repository 02/11/2018 Unknown R07.9 - Chest pain, Claus Hatfield Active [place] unspecified / Community R07.9(ICD-10) Hospital Repository 12/20/2017 Unknown R19.7 - Diarrhea, Con Johnson Active [place] unspecified / Community R19.7(ICD-10) Hospital Repository 08/06/2017 Unknown M79.89 - Other Bautista Salas Active [place] specified soft tissue Community disorders / Hospital M79.89(ICD-10) Repository 07/29/2017 Unknown E11.39 - Type 2 Con Johnson Active [place] diabetes mellitus Community with other diabetic Hospital ophthalmic Repository complication / E11.39(ICD-10) 07/10/2017 Unknown Z47.81 - Encounter Victor Manuel, Adolfo Chi Active [place] for orthopedic Community aftercare following Hospital surgical amputation / Repository Z47.81(ICD-10) 07/10/2017 Unknown M86.9 - Victor Manuel, Adolfo Chi Active [facility] Osteomyelitis, Community unspecified / Hospital M86.9(ICD-10) Repository 06/20/2017 Unknown L02.611 - Cutaneous JoppbobbiCon Active [place] abscess of right foot Community / L02.611(ICD-10) Hospital Repository PROCEDURES PROCEDURES No Procedure Records FoundRESULTS RESULTS DISCHARGE SUMMARY Observed: 06/18/2018 Status: F Source: [place] 3:43 PM [facility] REPOSITORY [facility] Medical Records Department [address] [place] [id number] Discharge Summary 06/18/18 1327 MR#: [id number] Acct: [id number] Name: LISA SEAY Rep #: [id number] : 1945 73 From: Ivanna Magana DPM PCP: Con Johnson MD Status: ADM YOKO Y Location: [place] [address] Discharge Date and Diagnosis - Problem List Patient Problems: Active and Suspected Problems (Last Reviewed 05/08/18 @ 13:15 by Madison Alicea) Ulcer of left foot (Acute) Date of Admission: 06/17/18 Date of Discharge: 06/18/18 - Primary Discharge Diagnosis Active and Suspected Problems (Last Reviewed 05/08/18 @ 13:15 by Madison Alicea) Ulcer of left foot (Acute) Ulcer left foot secondary to Charcot deformity Rule out osteomyelitis Diabetes with neuropathy Other comorbidities include hypertension, hyperlipidemia, anemia, GERD, coronary artery disease with history of bypass, hypocalcemia - Secondary Discharge Diagnosis Chronic Problems (Last Reviewed 05/08/18 @ 13:15 by Madison Alicea) Charcot's joint of left foot (Chronic) Type 2 diabetes mellitus with diabetic polyneuropathy (Chronic) History of CVA (cerebrovascular accident) (Chronic) Peripheral arterial occlusive disease (Chronic) Stroke (Chronic) Stented coronary artery (Chronic 12/21/14) PTCA and YASIR to proximal and distal CX per Dr. Hatfield @ [facility]:(Promus Premier 4.0 X 12 mm L2 stent from distal left main into proximal LCX; Promus Premier RX 2.25 X 12 mm L1 stent in distal LCX) History of left heart catheterization (Chronic) CABG X 3 vessels [facility]:DANIEL to LAD, reverse SVG to dx and to 2nd OM per Dr. Borjas @ [facility] 09/09/2014; PTCA andDES to proximal and distal CX per Dr. Hatfield 12/21/2014; History of coronary artery bypass graft (Chronic) CABG X 3 vessels [facility]:DANIEL to LAD, reverse SVG to dx and to 2nd OM per Dr. Borjas @ [facility] 09/09/2014 Atherosclerotic heart disease of [place] coronary artery without angina pectoris (Chronic) CABG X 3 vessels [facility]: DANIEL to LAD, reverse SVG to dx and to 2nd OM per Dr. Borjas @ [facility] 09/09/2014; PTCA/YASIR to Left main, LAD, and OM1 per Dr. Hatfield 12/21/2014; C. 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) Carotid artery disease (Chronic) Xerosis of skin (Chronic) Malnutrition (Chronic) Ulcer of right foot with fat layer exposed (Chronic) Diabetes mellitus with polyneuropathy (Chronic) Peripheral vascular disease (Chronic) Hypertension (Chronic) Obesity (Chronic) Diabetes mellitus type II (Chronic) Chronic pain (Chronic) Fatty liver (Chronic) Hyperlipidemia (Chronic) Coronary artery disease (Chronic) Hypothyroidism (Chronic) Iron deficiency anemia (Chronic) GERD (gastroesophageal reflux disease) (Chronic) Vitamin D deficiency (Chronic) Insomnia (Chronic) Hospital Course and Treatment Imaging Results: Postoperative left foot xrays demonstrate exostectomy and planing of the medial first cuneiform that was subluxed and medially and dorsally prominent secondary to Charcot deformity. There are no acute injuries noted a foreign body or soft tissue emphysema. consulting / managing teams : Medical hospitalist, podiatric surgery, physical therapy Operations: - - Left foot planing and exostectomy of the midfoot with bone biopsy Summary of Care Provided: History of present illness: This 73-year-old female underwent surgical resection of prominent medial first cuneiform of the left foot secondary to Charcot deformity and subluxation. Prior to her admission she was treated in the outpatient setting for concurrent cellulitis and subluxation of the midfoot. She completed a course of oral antibiotics. She also completed IV biphosphonate's to speed up the acute Charcot process and she responded well to this. Her deformity still progressed and she developed a wound and progressive deterioration. She has a long history of uncontrolled diabetes with multiple medical comorbidities and was stabilized prior to her surgical intervention. Hospital course: Mrs. Seay underwent surgical intervention. She was admitted for observation afterward for medical management, pain control, and physical therapy gait training. Microbiology cultures and pathology specimens were sent and surgery and these are pending. She had IV antibiotics postoperative. Postoperatively, hospitalist identified a potential irregular heartbeat and ordered an EKG which did not suggest acute findings. Physical therapy did work with her postoperatively and confirm she is able to maintain a nonweightbearing status. Appropriate assistive devices in the home were confirmed and she was also given a prescription for a lift chair to optimize her compliance with her nonweightbearing status. Hypocalcemia was also identified and her oral biphosphonate's were held at this time. She is overall stable and she will follow-up in the outpatient setting. Discharge was planned once her medical and surgical stabilization was confirmed. Patient Problems: Active and Suspected Problems (Last Reviewed 05/08/18 @ 13:15 by Madison Alicea) Ulcer of left foot (Acute) - Physical Exam General: Alert, Oriented x3, Cooperative HEENT: Atraumatic Lungs: Clear to auscultation Cardiovascular: Regular rate, Regular Rhythm Extremities: No cyanosis, Capillary Refill Less than 3 Seconds, No Calf Tenderness, - Skin: Incision - Intact left foot. Skin is hairless and atrophic Musculoskeletal: Muscle Wasting, - - Left pes planus now with less prominent medial dorsal midfoot eminence. Compartments remain soft left lower extremity Neurological: - - Lack of epicritic sensation left foot Psych/Mental Status: Normal Affect, Appropriate Vital Signs Temp Pulse Resp BP Pulse Ox 99.0 F 73 18 151/55 H 99 06/18/18 08:50 06/18/18 12:00 06/18/18 08:50 06/18/18 08:50 06/18/18 08:50 Oxygen Delivery Method Room Air Weight: 80.5 kg Body Mass Index (BMI) 30.4 Finger Stick Blood Glucose 193 Intake and Output for Last 24 Hours Intake Total 1775 / 1775 2591 / 2591 Output Total 140 / 140 2900 / 2900 Balance 1635 / 1635 -309 / -309 Microbiology Past 72 Hours 06/17/18 14:59 Gram Stain - Final Bone - Ankle Wound Culture - Preliminary Laboratory Tests Past 24 Hrs WBC 7.9 RBC 4.48 Hgb 11.7 L Hct 37.4 WBC 6.1 RBC 3.53 L Hgb 9.3 L Hct 29.5 L POC Glucose POC Glucose 227 H 185 H 256 H POC Glucose 134 H Discharge Diet: Carb Control Diet Discharge Activity: May Not Drive, Use Walker Weight Bearing Status: No weight bearing - left Keep extremity elevated above heart level: Left Leg Call your doctor if your incision/area has: Continuous Slow Oozing, Increased Pain/ Swelling, Increased Redness, Foul Smelling Discharge, Swelling at the incision site Call your doctor if you observe: Fever of 101 or Higher, Calf discomfort, Uncontrolled pain Cleanse incision/area with: Keep Dressing Clean AND Dry - Do not remove splint or dressing Home Medications: Medications to take at Discharge Aspirin [Aspirin, Baby] 81 mg PO DAILY@0800 03/10/17 Levothyroxine Sodium [Levoxyl] 75 mcg PO QHS 03/10/17 Nitroglycerin [Nitrostat] 0.4 mg SUBLINGUAL Q5M PRN 03/10/17 Pantoprazole Sodium [Protonix] 40 mg PO DAILY 03/10/17 Pravastatin Sodium 40 mg PO DAILY 03/10/17 Ergocalciferol [Vitamin D] 50,000 unit PO Q7D cap 07/08/17 Insulin Detemir [Levemir FlexPen] 30 units SC BID 07/25/17 clopidogrel 75 mg tablet 75 mg PO DAILY #90 tab 11/25/17 amlodipine 5 mg tablet 5 mg PO QHS tab 05/05/18 allopurinol 100 mg tablet 100 mg PO DAILY 05/08/18 carvedilol 12.5 mg tablet 12.5 mg PO BID #180 tab 05/08/18 hydroxyzine HCl 50 mg tablet 25 mg PO TID-QID PRN tab 05/08/18 insulin aspart U- 100 100 unit/mL subcutaneous pen 14 unit SC TIDAC ml 05/08/18 quetiapine 50 mg tablet 100 mg PO QHS tab 05/08/18 isosorbide mononitrate ER 30 mg tablet,extended release 24 hr 30 mg PO BID tab 05/22/18 Morphine Sulfate 3 ml PO DAILY 06/07/18 Lisinopril [Zestril] 10 mg PO DAILY 06/11/18 Hydrocodone/Acetaminophen [Hydrocodon-Acetaminophen 5-325] 1 - 2 tab PO Q6H PRN PRN #5 tab 06/18/18 Lipase/Protease/Amylase [Creon Dr 24,000 Units Capsule] 1 tablet PO BREAKFAST 06/18/18 Following Prescrptions Were Given to Patient: Hydrocodone/Acetaminophen [Hydrocodon-Acetaminophen 5-325] 1 - 2 tab PO Q6H PRN PRN #5 tab PRN Reason: Pain Primary Care Physician: Con Johnson MD [Primary Care Provider] - Please Follow Up With: Ivanna Magana DPM When: next Saturday June 23, 2018 at [facility] [phone] Additional Instructions: follow up with PCP about hypocalcemia Disposition: Home Minutes spent on discharge:: 25 Patient Condition:: Good Medical Necessity - Tobacco Use Smoking Status: Never smoker Tobacco Use: Non-smoker Meaningful Use Info Meaningful Use Diagnoses (Choose all that apply): None applicable 06/18/18 3793 <Electronically signed by Ivanna Magana DPM> Date Ivanna Magana DPM Cosigner Signature (if applicable): Date CC: Con Johnson MD; Ivanna Magana DPM Signed HISTORY AND PHYSICAL Observed: 06/18/2018 Status: F Source: [place] EXAM 1:[address] [facility] REPOSITORY [facility] Medical Records Department [address] [place] [address] History and Physical 06/17/18 1820 MR#: [id number] Acct: [id number] Name: LISA SEAY Rep #: [id number] : 1945 73 From: Ivanna Magana DPM PCP: Con Johnson MD Status: ADM YOKO Y Location: [place] [id number] ADDENDUM by Ivanna Magana DPM on 06/18/18 at 1344 Code Visit Note clarification: This patient does not have a previous documented MRSA culture Her CODE STATUS was discussed in detail this evening and is still full code. 06/18/18 1344 <Electronically signed by Ivanna Magana DPM> Date Ivanna Magana DPM cc: Con Johnson MD; Ivanna Magana DPM * Signed Problem List (1) Charcot's joint of left foot Status: Chronic (2) Ulcer of left foot Status: Acute (3) Type 2 diabetes mellitus with diabetic polyneuropathy Status: Chronic History of Present Illness Date of Admission: 06/17/18 Chief Complaint: s/p left foot charcot surgery This patient is a 73 year old F with comorbidities was admitted s/p left foot surgery. She has charcot foot with progressive subluxation of the midfoot with concurrent cellulitis. Her cellulitis has improved on oral antibiotics in the outpatient setting. She presented today for exostectomy of the prominent bone with bone biopsy. She denies new injuries or systemic illness at this time. Past Medical History Past Medical History (Chronic Problems): Chronic Problems (Last Reviewed 05/08/18 @ 13:15 by Madison Alicea) Charcot's joint of left foot (Chronic) Type 2 diabetes mellitus with diabetic polyneuropathy (Chronic) History of CVA (cerebrovascular accident) (Chronic) Peripheral arterial occlusive disease (Chronic) Stroke (Chronic) Stented coronary artery (Chronic 12/21/14) PTCA and YASIR to proximal and distal CX per Dr. Hatfield @ [facility]:(Promus Premier 4.0 X 12 mm L2 stent from distal left main into proximal LCX; Promus Premier RX 2.25 X 12 mm L1 stent in distal LCX) History of left heart catheterization (Chronic) CABG X 3 vessels [facility]:DANIEL to LAD, reverse SVG to dx and to 2nd OM per Dr. Borjas @ [facility] 09/09/2014; PTCA andDES to proximal and distal CX per Dr. Hatfield 12/21/2014; History of coronary artery bypass graft (Chronic) CABG X 3 vessels [facility]:DANIEL to LAD, reverse SVG to dx and to 2nd OM per Dr. Borjas @ [facility] 09/09/2014 Atherosclerotic heart disease of [place] coronary artery without angina pectoris (Chronic) CABG X 3 vessels [facility]: DANIEL to LAD, reverse SVG to dx and to 2nd OM per Dr. Borjas @ [facility] 09/09/2014; PTCA/YASIR to Left main, LAD, and OM1 per Dr. Hatfield 12/21/2014; C. 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) Carotid artery disease (Chronic) Xerosis of skin (Chronic) Malnutrition (Chronic) Ulcer of right foot with fat layer exposed (Chronic) Diabetes mellitus with polyneuropathy (Chronic) Peripheral vascular disease (Chronic) Hypertension (Chronic) Obesity (Chronic) Diabetes mellitus type II (Chronic) Chronic pain (Chronic) Fatty liver (Chronic) Hyperlipidemia (Chronic) Coronary artery disease (Chronic) Hypothyroidism (Chronic) Iron deficiency anemia (Chronic) GERD (gastroesophageal reflux disease) (Chronic) Vitamin D deficiency (Chronic) Insomnia (Chronic) Medical History: Medical History (Last Reviewed 05/08/18 @ 13:15 by Madison Alicea) History of CVA (cerebrovascular accident) (Chronic) Z86.73 Atherosclerotic heart disease of [place] coronary artery without angina pectoris (Chronic) I25.10 CABG X 3 vessels [facility]: DANIEL to LAD, reverse SVG to dx and to 2nd OM per Dr. Borjas @ [facility] 09/09/2014; PTCA/YASIR to Left main, LAD, and OM1 per Dr. Hatfield 12/21/2014; Diabetes mellitus (Chronic) E11.9 History of stroke (Chronic) Z86.73 Carotid artery disease (Chronic) I77.9 Malnutrition (Chronic) E46 Diabetes mellitus with polyneuropathy (Chronic) E11.42 Peripheral vascular disease (Chronic) I73.9 Hypertension (Chronic) I10 Chronic pain (Chronic) G89.29 Hyperlipidemia (Chronic) E78.5 Coronary artery disease (Chronic) I25.10 Hypothyroidism (Chronic) E03.9 Iron deficiency anemia (Chronic) D50.9 GERD (gastroesophageal reflux disease) (Chronic) K21.9 Allergies atorvastatin calcium [From Lipitor] Allergy (Verified 06/11/18 09:17) Unknown bupropion HCl [From Wellbutrin] Allergy (Verified 06/11/18 09:17) Unknown mannitol [From Reclast] Allergy (Verified 06/11/18 09:17) joint pain, unable to breathe, unable to walk propoxyphene napsylate [From Darvocet-N 100] Allergy (Verified 06/11/18 09:17) Unknown Quinolones Allergy (Verified 06/11/18 09:17) Unknown Tetanus Vaccines and Toxoid [Tetanus Vaccines AND Toxoid] Allergy (Verified 06/11/18 09:17) Chest tightness tizanidine Allergy (Verified 06/11/18 09:17) Unknown zoledronic acid [From Reclast] Allergy (Verified 06/11/18 09:17) joint pain,unable to breathe, unaable to walk JOINT PAIN,UNABLE TO BREATHE,UNABLE TO WALK pravastatin Adverse Reaction (Severe, Verified 06/11/18 09:17) Myalgias gemfibrozil Adverse Reaction (Intermediate, Verified 06/11/18 09:17) Unknown NSAIDS (Non-Steroidal Anti-Inflamma Adverse Reaction (Verified 06/11/18 09:17) Other Home Medications: Ambulatory Orders Medication Instructions Recorded Aspirin [Aspirin, Baby] 81 mg PO DAILY@0800 03/10/17 Surgical History: Surgical History (Last Reviewed 05/08/18 @ 13:15 by Madison Alicea) Stented coronary artery (Chronic) Onset Date: 12/21/14 Z95.5 PTCA and YASIR to proximal and distal CX per Dr. Hatfield @ [facility]:(Promus Premier 4.0 X 12 mm L2 stent from distal left main into proximal LCX; Promus Premier RX 2.25 X 12 mm L1 stent in distal LCX) History of left heart catheterization (Chronic) Z98.890 CABG X 3 vessels [facility]:DANIEL to LAD, reverse SVG to dx and to 2nd OM per Dr. Borjas @ [facility] 09/09/2014; PTCA andDES to proximal and distal CX per Dr. Hatfield 12/21/2014; History of coronary artery bypass graft (Chronic) Z95.1 CABG X 3 vessels [facility]:DANIEL to LAD, reverse SVG to dx and to 2nd OM per Dr. 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 Lives: Spouse/ Significant Other Smoking Status: Never smoker Tobacco Use: Non-smoker Alcohol: None Drugs: None - *Family History Paternal Family History: Family History (Last Reviewed 05/08/18 @ 13:15 by Madison Alicea) Mother Cancer CVA (cerebral vascular accident) CAD (coronary artery disease) Father CAD (coronary artery disease) History of coronary artery bypass graft Sister CAD (coronary artery disease) Multiple sclerosis History Items: No pertinent history Maternal Family History: Family History (Last Reviewed 05/08/18 @ 13:15 by Madison Alicea) Mother Cancer CVA (cerebral vascular accident) CAD (coronary artery disease) Father CAD (coronary artery disease) History of coronary artery bypass graft Sister CAD (coronary artery disease) Multiple sclerosis History Items: No pertinent history Review of Systems Constitutional: Denies: Chills, Fever Eyes: Denies: Double vision HEENT: Denies: Sore Throat Cardiovascular: Denies: Chest Pain, Claudication, Orthopnea, Palpitations Respiratory: Denies: Shortness of Breath Gastrointestinal: Denies: Abdominal Pain, Constipation, Diarrhea, Nausea, Vomiting Genitourinary: Reports: Incontinence Musculoskeletal: Denies: Leg Pain Skin: Reports: Skin Changes, Wounds. Denies: Pruritis Neurological: Reports: Balance problems, Incoordination, Numbness Psychiatric: Denies: Depression Endocrine: Reports: Polyuria Hematologic/ Lymphatic: Reports: Easy Bruising. Denies: Easy Bleeding VTE Information - Inpt Only VTE Present on Admission: No VTE Mechan Device Prophylaxis: SCD's VTE Pharm Prophylaxis ordered?: Yes Patient Problems: Active and Suspected Problems (Last Reviewed 05/08/18 @ 13:15 by Madison Alicea) Ulcer of left foot (Acute) - Physical Exam General: Alert, Oriented x3, Cooperative, No apparent distress HEENT: Atraumatic Oral: Moist Mucosa, No Gingival or Mucosal Lesions/ Ulcerations Neck: Supple, Negative Carotid Bruits, Trachea Midline Lungs: Clear to auscultation, Normal air movement, No wheeze Cardiovascular: Regular rate, Regular Rhythm, No murmurs Abdomen: Soft, Non Tender Extremities: Capillary Refill Less than 3 Seconds - all digits left foot, No Calf Tenderness, Diminished Peripheral Pulses, Peripheral Pulses Normal - palpable PT and DP pulse left foot Skin: Incision - medial foot with post operative dressing intact. no purulence or alejandro necrosis is noted Musculoskeletal: No Tenderness to Palpation of Joints or Extremities, Muscle Wasting, - - reduced surgical resection of medial midfoot prominence, left. rectus ankle. pes planus. healed right transmetatarsal amputation. AROM digits, left. AROM knees and hips bilateral Neurological: Cranial nerves II-XII grossly intact, - - lack of epicritic sensation via light touch left foot. negative clonus, bilateral lower extremity. moves upper and lower extremities Psych/Mental Status: Normal Affect, Appropriate, Alert and oriented to time, place, person, mood and affect Vital Signs Temp Pulse Resp BP Pulse Ox 98.2 F 78 18 104/44 L 100 06/17/18 17:46 06/17/18 17:46 06/17/18 17:46 06/17/18 17:46 06/17/18 17:46 Oxygen Delivery Method Room Air Weight: 80.5 kg Body Mass Index (BMI) 30.4 Finger Stick Blood Glucose 193 Intake and Output for Last 24 Hours Intake Total 1775 / 1775 Output Total 140 / 140 Balance 1635 / 1635 Laboratory Tests Past 24 Hrs S.aureus Protein A PCR NEGATIVE MRSA (PCR) Negative POC Glucose POC Glucose 134 H 163 H Assessment/Plan All Active Problems (Last Reviewed 05/08/18 @ 13:15 by Madison Alicea) Ulcer of left foot (Acute) Abscess of right foot (Acute) Ulcer at the right metatarsal head (Acute) osteomylitis right little toe (Resolved) Severe sepsis (Resolved) Acute kidney injury (Resolved) Dehydration (Resolved) Acute delirium (Resolved) Hyponatremia (Resolved) Foot ulcer (Resolved) Osteomyelitis of right foot (Acute) Sepsis (Resolved) Hypotension (Resolved) UTI (urinary tract infection) (Resolved) Gangrene of toe (Resolved) Cellulitis of toe, right (Resolved) Gangrene (Resolved) s/p left foot charcot exostecomy resection with bone biopsy s/p splint application left lower extremity rule out osteomyelitis left foot diabetes mellitus with neuropathy malnutrition medical comorbidities: coronary artery disease, h/o stroke, hypertension, chronic pain, hyperlipidemia, hypertension, hypothyroidism, iron deficiency anemia, GERD, h/o c-diff, h/o mrsa, h/o delayed ulcers with infections/amputations, She is s/p left foot surgery. Post operative xrays were reviewed with resected prominent medial first cuneiform bone. Serial xrays, and charcot related lab trends will be followed in the outpatient setting (esr, crp, vit D). To keep splint clean, dry, intact. Strict non weightbearing left foot. Post operative IV antibiotics 24hrs; cefazolin ordered. There was no alejandro purulence or necrosis noted in surgery. Her peripheral cellulitis has improved. The resected bone cultures and pathology specimens are pending from surgery. CBC tomorrow am has been ordered. She is high risk for limb loss and understands this may be a staged procedure pending bone biopsy results and ongoing stability of this limb. Resume DVT prophylaxis tomorrow; orders placed. She will stay this evening for medical management during the post operative setting for medical management and for PT evaluation to confirm safe return home. She has many assistive devices at home and will need a chair lift; prescription provided. Pain medication ordered; to take as needed. To elevate limb. Blue nutritional supplementation ordered to optimize healing. Her vitals remain stable post operative. Medical management per primary team is appreciated. Discussed case with Dr. Moseley. Discharge planning is in process; will confirm pain controlled, grayson removed, and able to safely return home with the ability to remain non weightbearing during transfers. Please call if questions. Ivanna Magana DPM, [facility] [phone] 06/17/182049 <Electronically signed by Ivanna Magana DPM> Date Ivanna Magana DPM Cosigner Signature: Date (if applicable) CC: Con Johnson MD; Ivanna Magana DPM Signed BEDSIDE GLUCOSE Collected: 06/18/2018 Status: F Source: [place] 12:[address] [facility] REPOSITORY TYPE CODE TESTS RESULT OUT OF REFERENCE UNITS RANGE LAB L501.080 70-110 mg/dL High BEDSIDE GLU 227 Result Comment: MANAGEMENT OF PATIENT CARE PER NURSING PROTOCOL Performed By: #### L501.080 #### [facility] Point of Care [address] [place] [address] DISCHARGE INSTRUCTION Observed: 06/18/2018 Status: F Source: [place] 12:[address] [facility] REPOSITORY [facility] Medical Records Department [address] [place] [address] Instructions for Home/Discharge Instructions 06/18/18 1229 MR#: [id number] Acct: [id number] Name: LISA SEAY Trini Rep #: [id number] : 1945 73 From: Ivanan Magana DPM PCP: Con Johnson MD Status: ADM YOKO Discharge Diet: Carb Control Diet Discharge Activity: May Not Drive, Use Walker Weight Bearing Status: No weight bearing - left Keep extremity elevated above heart level: Left Leg Call your doctor if your incision/area has: Continuous Slow Oozing, Increased Pain/ Swelling, Increased Redness, Foul Smelling Discharge, Swelling at the incision site Call your doctor if you observe: Fever of 101 or Higher, Calf discomfort, Uncontrolled pain Cleanse incision/area with: Keep Dressing Clean AND Dry - Do not remove splint or dressing Allergies/Adverse Reactions: Allergies atorvastatin calcium [From Lipitor] Allergy (Verified 06/11/18 09:17) Unknown bupropion HCl [From Wellbutrin] Allergy (Verified 06/11/18 09:17) Unknown mannitol [From Reclast] Allergy (Verified 06/11/18 09:17) joint pain, unable to breathe, unable to walk propoxyphene napsylate [From Darvocet-N 100] Allergy (Verified 06/11/18 09:17) Unknown Quinolones Allergy (Verified 06/11/18 09:17) Unknown Tetanus Vaccines and Toxoid [Tetanus Vaccines AND Toxoid] Allergy (Verified 06/11/18 09:17) Chest tightness tizanidine Allergy (Verified 06/11/18:17) Unknown zoledronic acid [From Reclast] Allergy (Verified 06/11/18:17) joint pain,unable to breathe, unaable to walk JOINT PAIN,UNABLE TO BREATHE,UNABLE TO WALK pravastatin Adverse Reaction (Severe, Verified 06/11/18 09:17) Myalgias gemfibrozil Adverse Reaction (Intermediate, Verified 06/11/18:17) Unknown NSAIDS (Non-Steroidal Anti-Inflamma Adverse Reaction (Verified 06/11/18 09:17) Other Medications to take at Discharge Aspirin [Aspirin, Baby] 81 mg PO DAILY@0800 03/10/17 Levothyroxine Sodium [Levoxyl] 75 mcg PO QHS 03/10/17 Nitroglycerin [Nitrostat] 0.4 mg SUBLINGUAL Q5M PRN 03/10/17 Pantoprazole Sodium [Protonix] 40 mg PO DAILY 03/10/17 Pravastatin Sodium 40 mg PO DAILY 03/10/17 Ergocalciferol [Vitamin D] 50,000 unit PO Q7D cap 07/08/17 Insulin Detemir [Levemir FlexPen] 30 units SC BID 07/25/17 clopidogrel 75 mg tablet 75 mg PO DAILY #90 tab 11/25/17 amlodipine 5 mg tablet 5 mg PO QHS tab 05/05/18 allopurinol 100 mg tablet 100 mg PO DAILY 05/08/18 carvedilol 12.5 mg tablet 12.5 mg PO BID #180 tab 05/08/18 hydroxyzine HCl 50 mg tablet 25 mg PO TID-QID PRN tab 05/08/18 insulin aspart U- 100 100 unit/mL subcutaneous pen 14 unit SC TIDAC ml 05/08/18 quetiapine 50 mg tablet 100 mg PO QHS tab 05/08/18 alendronate 40 mg tablet 40 mg PO DAILY 90 Days #90 tab 05/22/18 isosorbide mononitrate ER 30 mg tablet,extended release 24 hr 30 mg PO BID tab 05/22/18 Cephalexin [Keflex] 500 mg PO Q12 #14 cap 06/07/18 Morphine Sulfate 3 ml PO DAILY 06/07/18 Lisinopril [Zestril] 10 mg PO DAILY 06/11/18 Lipase/Protease/Amylase [Creon Dr 24,000 Units Capsule] 1 tablet PO BREAKFAST 06/18/18 Primary Care Physician: Con Johnson MD [Primary Care Provider] - Test Results: Test results from this visit will be discussed in further detail at your follow-up appointment, if applicable. Please Follow Up With: Ivanna Magana DPM When: next Saturday June 23, 2018 at [facility] [phone] Proposed Discharge Date: 06/18/18 06/18/18 1231 <Electronically signed by Ivanna Magana DPM> Date Ivanna Magana DPM CC: Con Johnson MD; Jose M Moseley; Ivanna Magana DPM Signed BEDSIDE GLUCOSE Collected: 06/18/2018 Status: F Source: [place] 6:[address] [facility] REPOSITORY TYPE CODE TESTS RESULT OUT OF REFERENCE UNITS RANGE LAB L501.080 70-110 mg/dL High BEDSIDE GLU 185 Result Comment: MANAGEMENT OF PATIENT CARE PER NURSING PROTOCOL Performed By: #### L501.080 #### [facility] Point of Care [address] [place], [place] [id number] CBC W/DIFF, AUTOMATED Collected: 06/18/2018 Status: F Source: [place] 5:[address] [facility] REPOSITORY Order Comment: Has pt arrived? Y TYPE CODE TESTS RESULT OUT OF RANGE REFERENCE UNITS LAB L100.1000 4.4-11.0 K/mm3 Normal WBC 6.1 LAB L100.1200 4.2-5.4 M/mm3 Low RBC 3.53 LAB L100.1300 12.0-15.0 g/dl Low HGB 9.3 LAB L100.1400 37-47 % Low HCT 29.5 LAB L100.1500 81-99 fL Normal MCV 83.6 LAB L100.1600 27.0-32.0 pg Low MCH 26.3 LAB L100.1700 32-36 g/gl Low MCHC 31.5 LAB L100.1810 11.6-14.6 % High RDW CV 16.2 LAB L100.1820 35.1-43.9 fl High RDW SD 48.3 LAB L100.1900 150-450 K/mm3 Normal PLT 166 LAB L100.2000 6.2-12.0 fl Normal MPV 10.0 LAB L100.2100 47-70 % Normal NEUT% 56.1 LAB L100.2200 19-41 % Normal LY% 29.9 LAB L100.2300 0-10 % High MONO% 12.0 LAB L100.2400 0-5 % Normal EO% 1.5 LAB L100.2500 0-1 % Normal BASO% 0.3 LAB L100.2550 0.0-0.9 % Normal IM GRAN % 0.200 Result Comment: IG% - Immature Granulocytes (promyelocytes, myelocytes and metamyelocytes) > 1% indicates that a LEFT SHIFT is Present. LAB L100.2620 2.0-7.7 X10 3/uL Normal Absolute Neut 3.4 LAB L100.2720 0.83-4.51 X10 3/ul Normal Absolute Lymph 1.81 Performed By: #### L100.0100 #### [facility] [address] [place], [place], [address] BASIC METABOLIC Collected: 06/18/2018 Status: F Source: [place] PROFILE ([facility]) 5:[address] [facility] REPOSITORY TYPE CODE TESTS RESULT OUT OF RANGE REFERENCE UNITS LAB L501.0100 74-106 mg/dL High GLU 151 Result Comment: Fasting Glucose result greater than or equal to 126 mg/dL suggests DIABETES MELLITUS per A.D.A. criteria. Please note revised GLUCOSE reference range effective 2017. LAB L501.1000 7-18 mg/dL High BUN 23 LAB L501.1100 0.55-1.02 mg/dL Normal CREAT,SERUM 0.95 Result Comment: The validity of the calculated GFR AND GFRAA in patients over 70 years has not been determined. Clinical correlation is essential. LAB L501.1110 >60 mL/min Normal EST GFR 62 Result Comment: Non- GFR Calc LAB L501.1115 >60 mL/min Normal EST GFR - AA 75 Result Comment: GFR Calc LAB L501.1255 ml/min Normal Estimated CRCL 46.90 LAB L501.1300 10-20 RATIO High BUN/CRE 24.3 LAB L501.2200 8.5-10 mg/dL Low .1 CA alert 6.4 Result Comment: Critical Result(s) Called at: 06:04:29 06/18/2018 by: Adrian Soares to Kaushik Tavarez RN (MS3). LAB L501.5300 136-145 mmol/L High NA 147 LAB L501.5600 3.5-5.1 mmol/L Normal K 3.8 LAB L501.5900 98-107 mmol/L High CL 120 LAB L501.6100 21.0-32.0 mmol/L Low CO2 19.0 LAB L501.6200 5-15 Normal 8 GAP Performed By: #### L500.2500 #### [facility] [address] [place], [address] HEMOGLOBIN A1C Collected: 06/18/2018 Status: F Source: [place] 5:[address] [facility] REPOSITORY TYPE CODE TESTS RESULT OUT OF RANGE REFERENCE UNITS LAB L501.9985 4.2-6.3 % High HGB A1C 8.1 Performed By: #### L501.9985 #### [facility] [address] [place], [address] OPERATIVE REPORT Observed: 06/17/2018 Status: F Source: [place] 11:[address] [facility] REPOSITORY [facility] Medical Records Department [address] [facility] [place] [address] Operative Report 06/17/18 1509 MR#: [id number] Acct: [id number] Name: LISA SEAY Rep #: [id number] : 1945 73 From: Ivanna Magana DPM PCP: Con Johnson MD Status: ADM YOKO Y Location: MS3 [id number] Problem List (1) Charcot's joint of left foot Status: Chronic (2) Ulcer of left foot Status: Acute (3) Type 2 diabetes mellitus with diabetic polyneuropathy Status: Chronic Report of Operation Date of Procedure: 06/17/18 Pre-Operative Diagnosis: Charcot foot with midfoot dislocation and ulcer formation left. Rule out osteomyelitis left foot Post-Operative Diagnosis: Charcot foot with midfoot dislocation and ulcer formation left. Rule out osteomyelitis left foot Surgery/Procedure Performed:: Exostectomy left foot with bone biopsy Description of Surgical Findings:: Hemostasis: Well-padded pneumatic left ankle tourniquet, 250 mmHg, 28 minutes Materials: 2-0 Vicryl, 3-0 nylon Complications: None Type of Anesthesia:: Local - Partial ankle block left lower extremity with 16 cc of 0.5% Marcaine plain, MAC Specimen's removed: Left foot bone sent to microbiology (aerobic, anaerobic, acid-fast, fungal, MRSA PCR) and pathology Estimated Blood Loss (mL): < 50 mL Description of Procedure: Indications: This 73-year-old female with significant past medical history of coronary artery disease and previous bypass, hypertension, hyperlipidemia, anemia, GERD has a progressive left foot Charcot deformity with subluxation of the first and second metatarsal cuneiform articulation. The dislocated bone prominence was contributing to ulcer formation with concurrent cellulitis. She has been treated in the outpatient setting with oral antibiotics with resolution of local cellulitis. She has also been treated in the outpatient setting with IV biphosphonate's, vitamin D supplementation, strict immobilization for Charcot treatment. Her preoperative x-rays demonstrate subluxation medially and dorsally of the first metatarsal cuneiform articulation with flatfoot progression and also subluxation of the second metatarsal cuneiform. No soft tissue emphysema or significant clear osseous destruction was noted. There is no foreign body identified. Clinically her pulses remain palpable and she does have a fibrous ulcer to the medial foot that is adjacent to the bony prominence. Her Charcot foot has progressed and she presents today for resection of the prominent bone that is contributing to the ulcer site including bone biopsy to rule out underlying osteomyelitis. She understands if the bone biopsy comes back positive for osteomyelitis or instability continues with the midfoot, further surgery may be required and she is at high risk for limb loss. The preoperative indications, planned procedure, possible benefits, risks, complications, anticipated healing time and management were discussed in detail with patient. The complications and risks include but may not be limited to the following: Continued infection and Charcot progression, pain, swelling, scar, loss of limb, function, life, blood clots, allergic reaction, over under correction, deformity progression, chronic pain. She understands and elects to proceed with surgery at this time. No guarantees were made. The informed surgical consent and surgical limb were signed. I answered all of her questions. Her preoperative history and physical, medical and cardiac clearances, diagnostic labs and x-ray data were reviewed. Procedure in detail: The patient was transferred to the operating room via cart and placed on the operating table in the supine position. Final verification of the patient, surgery, and limb designation was performed in the timeout procedure. Well-padded pneumatic left ankle tourniquet was placed. Preoperative local anesthetic was administered by the podiatry team. MAC anesthesia was initiated by the anesthesia team. The left lower extremity was prepped and draped in the usual aseptic manner. Dorset examination was performed to exsanguinate the left lower extremity. Surgery began in the following manner: Attention was first directed to the dorsal medial aspect of the left foot in which a curvilinear incision was made adjacent to the ulcer site. Blunt dissection was performed down to the capsular layer taking care to identify, protect, and retract all neurovascular structures at this point and throughout the remainder of surgery. The capsular layer was identified and a non skin blade scalpel was used to incise and exposed the prominent subluxed medial cuneiform first metatarsal area of concern. Closed reduction was attempted with manual manipulation of forefoot and midfoot as well as with the small joint distractor. Gross laxity is not noted and it appears that Charcot phase is no longer in a distinct acute phase. There is no purulence, deep tissue loss, or necrosis noted. The bone was fairly firm without distinct discoloration. Next, a cruz elevator was used to obtain good visualization of the subluxed prominent bone. A sagittal saw was used to resect the medial and dorsal prominent subluxed location and the planing /exostectomy portion of the case was completed. This resected bone was sent to both microbiology and pathology for further testing. The surgical site was copiously irrigated with normal saline. All prominent edges were smoothed with a rasp. Adequate resection was confirmed with intraoperative radiographs. No acute injuries were noted and the prominent osseous structure was resected adequately. Next, deep capsular closure was performed with Vicryl. The tourniquet was deflated at this time and brisk capillary refill time was noted to all digits of the left foot. No pulsatile bleeding was noted and minimal electrocauterization was used to maintain hemostasis. The skin was next reapproximated with nylon suture. A postoperative dressing consisting of Betadine soaked Adaptic, gauze, abdominal pad, Kerlix, and Dalia wrap were applied. Next a well-padded posterior mold splint with sugar was applied with the foot and ankle in a rectus position. After procedure: The patient tolerated the procedure and anesthesia well. She was transported to PACU with vital signs stable and vascular status intact to left lower extremity. She was advised to remain nonweightbearing in a strict manner. To elevate the limb for swelling and pain control. Postoperative pain medicine was ordered on an as-needed basis. Her neuropathy is noted. I recommend postoperative antibiotics for less than 24 hours. Her bone biopsy results are pending and will be monitored closely. She will be admitted for continued medical management and will see physical therapy in the morning to confirm if she can safely return home and also to provide additional gait and transfer training. She has struggled with this and this complicates her care plan. Medical management per medicine team is greatly appreciated. She will resume her DVT prophylaxis medication postoperatively. The postoperative x-rays were reviewed as previously noted. All postoperative orders were entered electronically. Ivanna Magana DPM, [facility] 06/17/18 9973 <Electronically signed by Ivanna Magana DPM> Date Ivanna Magana DPM CC: Con Johnson MD; Jose M Moseley; Ivanna Magana DPM Signed CBC W/DIFF, AUTOMATED Collected: 06/17/2018 Status: F Source: [place] 9:[address] [facility] REPOSITORY TYPE CODE TESTS RESULT OUT OF RANGE REFERENCE UNITS LAB L100.1000 4.4-11.0 K/mm3 Normal WBC 7.9 LAB L100.1200 4.2-5.4 M/mm3 Normal RBC 4.48 LAB L100.1300 12.0-15.0 g/dl Low HGB 11.7 LAB L100.1400 37-47 % Normal HCT 37.4 LAB L100.1500 81-99 fL Normal MCV 83.5 LAB L100.1600 27.0-32.0 pg Low MCH 26.1 LAB L100.1700 32-36 g/gl Low MCHC 31.3 LAB L100.1810 11.6-14.6 % High RDW CV 16.6 LAB L100.1820 35.1-43.9 fl High RDW SD 50.6 LAB L100.1900 150-450 K/mm3 Normal PLT 171 LAB L100.2000 6.2-12.0 fl Normal MPV 9.8 LAB L100.2100 47-70 % Normal NEUT% 64.3 LAB L100.2200 19-41 % Normal LY% 23.9 LAB L100.2300 0-10 % Normal MONO% 9.0 LAB L100.2400 0-5 % Normal EO% 1.9 LAB L100.2500 0-1 % Normal BASO% 0.6 LAB L100.2550 0.0-0.9 % Normal IM GRAN % 0.300 Result Comment: IG% - Immature Granulocytes (promyelocytes, myelocytes and metamyelocytes) > 1% indicates that a LEFT SHIFT is Present. LAB L100.2620 2.0-7.7 X10 3/uL Normal Absolute Neut 5.1 LAB L100.2720 0.83-4.51 X10 3/ul Normal Absolute Lymph 1.88 Performed By: #### L100.0100 #### [facility] [address] [place], [address] BASIC METABOLIC Collected: 06/17/2018 Status: F Source: [place] PROFILE (BMP) 9:[address] [facility] REPOSITORY TYPE CODE TESTS RESULT OUT OF RANGE REFERENCE UNITS LAB L501.0100 74-106 mg/dL High GLU 243 Result Comment: Glucose result greater than or equal to 200 mg/dL suggests DIABETES MELLITUS per A.D.A. criteria. Please note revised GLUCOSE reference range effective 2017. LAB L501.1000 7-18 mg/dL High BUN 27 LAB L501.1100 0.55-1.02 mg/dL High CREAT,SERUM 1.51 Result Comment: The validity of the calculated GFR AND GFRAA in patients over 70 years has not been determined. Clinical correlation is essential. LAB L501.1110 >60 mL/min Low EST GFR 36 Result Comment: Non- GFR Calc LAB L501.1115 >60 mL/min Low EST GFR - AA 44 Result Comment: GFR Calc LAB L501.1255 ml/min Normal Estimated CRCL 29.51 LAB L501.1300 10-20 RATIO Normal BUN/CRE 17.9 LAB L501.2200 8.5-10 mg/dL Low .1 CA 8.2 LAB L501.5300 136-14 mmol/L Normal 5 NA 140 LAB L501.5600 3.5-5. mmol/L Normal 1 K 5.0 LAB L501.5900 98-107 mmol/L High CL 110 LAB L501.6100 21.0-3 mmol/L Normal 2.0 CO2 23.0 LAB L501.6200 5-15 Normal GAP 7 Performed By: #### L500.2500, L501.5200 #### [facility] [address] [place], [place], [address] MAGNESIUM Collected: 06/17/2018 Status: F Source: [place] 9:[address] [facility] REPOSITORY TYPE CODE TESTS RESULT OUT OF RANGE REFERENCE UNITS LAB L501.5200 1.6-2.6 mg/dL Normal MG 2.3 Performed By: #### L500.2500, L501.5200 #### [facility] [address] [place], [address] BEDSIDE GLUCOSE Collected: 06/17/2018 Status: F Source: [place] 8:[address] [facility] REPOSITORY TYPE CODE TESTS RESULT OUT OF REFERENCE UNITS RANGE LAB L501.080 70-110 mg/dL High BEDSIDE GLU 256 Result Comment: MANAGEMENT OF PATIENT CARE PER NURSING PROTOCOL Performed By: #### L501.080 #### [facility] Point of Care [address] [place] [address] CONSULTATION Observed: 06/17/2018 Status: F Source: [place] 8:[address] [facility] REPOSITORY [facility] Medical Records Department [address] [place] [address] Consultation 06/17/181943 MR#: [id number] Acct: [id number] Name: LISA SEAY Rep #: [id number] : 1945 73 From: Ovi Willson MD PCP: Con Johnson MD Status: ADM YOKO Y Location: MS3 [id number] Problem List (1) Charcot's joint of left foot Status: Chronic (2) Ulcer of left foot Status: Acute (3) Type 2 diabetes mellitus with diabetic polyneuropathy Status: Chronic (4) History of CVA (cerebrovascular accident) Status: Chronic (5) Peripheral arterial occlusive disease Status: Chronic (6) Stroke Status: Chronic (7) Abscess of right foot Status: Acute (8) Ulcer at the right metatarsal head Status: Acute (9) Stented coronary artery Status: Chronic Comment: PTCA and YASIR to proximal and distal CX per Dr. Hatfield @ [facility]:(Promus Premier 4.0 X 12 mm L2 stent from distal left main into proximal LCX; Promus Premier RX 2.25 X 12 mm L1 stent in distal LCX) (10) History of left heart catheterization Status: Chronic Comment: CABG X 3 vessels [facility]:DANIEL to LAD, reverse SVG to dx and to 2nd OM per Dr. Borjas @ [facility] 09/09/2014; PTCA andDES to proximal and distal CX per Dr. Hatfield 12/21/2014; (11) History of coronary artery bypass graft Status: Chronic Comment: CABG X 3 vessels [facility]:DANIEL to LAD, reverse SVG to dx and to 2nd OM per Dr. Borjas @ [facility] 09/09/2014 (12) Atherosclerotic heart disease of [place] coronary artery without angina pectoris Status: Chronic Qualifiers: [place] vs. transplanted heart: [place] heart Qualified Code(s): I25.10 - Atherosclerotic heart disease of [place] coronary artery without angina pectoris Comment: CABG X 3 vessels [facility]: DANIEL to LAD, reverse SVG to dx and to 2nd OM per Dr. Borjas @ [facility] 09/09/2014; PTCA/YASIR to Left main, LAD, and OM1 per Dr. Hatfield 12/21/2014; (13) C. 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 (17) Osteomyelitis of right foot Status: Acute (18) Carotid artery disease Status: Chronic Qualifiers: Laterality: bilateral (19) Xerosis of skin Status: Chronic (20) Malnutrition Status: Chronic (21) Ulcer of right foot with fat layer exposed Status: Chronic (22) Diabetes mellitus with polyneuropathy Status: Chronic Qualifiers: (23) Peripheral vascular disease Status: Chronic (24) Hypertension Status: Chronic Qualifiers: Hypertension type: essential hypertension Qualified Code(s): I10 - Essential (primary) hypertension (25) Obesity Status: Chronic Qualifiers: Obesity type: due to excess calories Obesity classification: adult class 1 (BMI 30 - 34.9) Body mass index: BMI 31.0-31.9 (26) Diabetes mellitus type II Status: Chronic (27) Chronic pain Status: Chronic Qualifiers: (28) Fatty liver Status: Chronic (29) Hyperlipidemia Status: Chronic Qualifiers: Hyperlipidemia type: mixed hyperlipidemia Qualified Code(s): E78.2 - Mixed hyperlipidemia (30) Coronary artery disease Status: Chronic Qualifiers: (31) Hypothyroidism Status: Chronic Qualifiers: (32) Iron deficiency anemia Status: Chronic Qualifiers: (33) GERD (gastroesophageal reflux disease) Status: Chronic Qualifiers: (34) Vitamin D deficiency Status: Chronic (35) Insomnia Status: Chronic Qualifiers: Reason for Consult Date of Consultation: 06/17/18 Reason for Consultation: Medical management of multiple comorbidities History of Present Illness: The patient is a 73 year old F with multiple comorbidities as listed above including type 2 diabetes mellitus who is admitted by rouge mixer electively for surgery of Exostectomy left foot with bone biopsy for Charcot joint of midfoot dislocation and ulcer formation, rule out osteomyelitis. Patient left foot is normal after anesthesia. She denies any chest pain, shortness of breath, palpitation, abdominal pain. She denies new lower urinary tract symptoms except she has increased frequency secondary to diabetes mellitus and being on diuretics. She has Grayson catheter. She has multiple comorbidities including type 1 diabetes mellitus with diabetic polyneuropathy, Charcot joint, coronary artery disease status post triple vessel CABG, stents, last one as per patient 2 years ago, osteomyelitis of right foot, history of C. difficile colitis, acute kidney injury, carotid artery disease, and hypertension [] Past Medical History Past Medical History (Chronic Problems): Chronic Problems (Last Reviewed 05/08/18 @ 13:15 by Madison Alicea) Charcot's joint of left foot (Chronic) Type 2 diabetes mellitus with diabetic polyneuropathy (Chronic) History of CVA (cerebrovascular accident) (Chronic) Peripheral arterial occlusive disease (Chronic) Stroke (Chronic) Stented coronary artery (Chronic 12/21/14) PTCA and YASIR to proximal and distal CX per Dr. Hatfield @ [facility]:(Promus Premier 4.0 X 12 mm L2 stent from distal left main into proximal LCX; Promus Premier RX 2.25 X 12 mm L1 stent in distal LCX) History of left heart catheterization (Chronic) CABG X 3 vessels [facility]:DANIEL to LAD, reverse SVG to dx and to 2nd OM per Dr. Borjas @ [facility] 09/09/2014; PTCA andDES to proximal and distal CX per Dr. Hatfield 12/21/2014; History of coronary artery bypass graft (Chronic) CABG X 3 vessels [facility]:DANIEL to LAD, reverse SVG to dx and to 2nd OM per Dr. Borjas @ [facility] 09/09/2014 Atherosclerotic heart disease of [place] coronary artery without angina pectoris (Chronic) CABG X 3 vessels [facility]: DANIEL to LAD, reverse SVG to dx and to 2nd OM per Dr. Borjas @ [facility] 09/09/2014; PTCA/YASIR to Left main, LAD, and OM1 per Dr. Hatfield 12/21/2014; C. 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) Carotid artery disease (Chronic) Xerosis of skin (Chronic) Malnutrition (Chronic) Ulcer of right foot with fat layer exposed (Chronic) Diabetes mellitus with polyneuropathy (Chronic) Peripheral vascular disease (Chronic) Hypertension (Chronic) Obesity (Chronic) Diabetes mellitus type II (Chronic) Chronic pain (Chronic) Fatty liver (Chronic) Hyperlipidemia (Chronic) Coronary artery disease (Chronic) Hypothyroidism (Chronic) Iron deficiency anemia (Chronic) GERD (gastroesophageal reflux disease) (Chronic) Vitamin D deficiency (Chronic) Insomnia (Chronic) Medical History: Medical History (Last Reviewed 05/08/18 @ 13:15 by Madison Alicea) History of CVA (cerebrovascular accident) (Chronic) Z86.73 Atherosclerotic heart disease of [place] coronary artery without angina pectoris (Chronic) I25.10 CABG X 3 vessels [facility]: DANIEL to LAD, reverse SVG to dx and to 2nd OM per Dr. Borjas @ [facility] 09/09/2014; PTCA/YASIR to Left main, LAD, and OM1 per Dr. Hatfield 12/21/2014; Diabetes mellitus (Chronic) E11.9 History of stroke (Chronic) Z86.73 Carotid artery disease (Chronic) I77.9 Malnutrition (Chronic) E46 Diabetes mellitus with polyneuropathy (Chronic) E11.42 Peripheral vascular disease (Chronic) I73.9 Hypertension (Chronic) I10 Chronic pain (Chronic) G89.29 Hyperlipidemia (Chronic) E78.5 Coronary artery disease (Chronic) I25.10 Hypothyroidism (Chronic) E03.9 Iron deficiency anemia (Chronic) D50.9 GERD (gastroesophageal reflux disease) (Chronic) K21.9 Allergies atorvastatin calcium [From Lipitor] Allergy (Verified 06/11/18 09:17) Unknown bupropion HCl [From Wellbutrin] Allergy (Verified 06/11/18 09:17) Unknown mannitol [From Reclast] Allergy (Verified 06/11/18 09:17) joint pain, unable to breathe, unable to walk propoxyphene napsylate [From Darvocet-N 100] Allergy (Verified 06/11/18 09:17) Unknown Quinolones Allergy (Verified 06/11/18 09:17) Unknown Tetanus Vaccines and Toxoid [Tetanus Vaccines AND Toxoid] Allergy (Verified 06/11/18 09:17) Chest tightness tizanidine Allergy (Verified 06/11/18 09:17) Unknown zoledronic acid [From Reclast] Allergy (Verified 06/11/18 09:17) joint pain,unable to breathe, unaable to walk JOINT PAIN,UNABLE TO BREATHE,UNABLE TO WALK pravastatin Adverse Reaction (Severe, Verified 06/11/18 09:17) Myalgias gemfibrozil Adverse Reaction (Intermediate, Verified 06/11/18 09:17) Unknown NSAIDS (Non-Steroidal Anti-Inflamma Adverse Reaction (Verified 06/11/18 09:17) Other Home Medications: Ambulatory Orders Medication Instructions Recorded Aspirin [Aspirin, Baby] 81 mg PO DAILY@0800 03/10/17 Surgical History: Surgical History (Last Reviewed 05/08/18 @ 13:15 by Madison Alicea) Stented coronary artery (Chronic) Onset Date: 12/21/14 Z95.5 PTCA and YASIR to proximal and distal CX per Dr. Hatfield @ [facility]:(Promus Premier 4.0 X 12 mm L2 stent from distal left main into proximal LCX; Promus Premier RX 2.25 X 12 mm L1 stent in distal LCX) History of left heart catheterization (Chronic) Z98.890 CABG X 3 vessels [facility]:DANIEL to LAD, reverse SVG to dx and to 2nd OM per Dr. Borjas @ [facility] 09/09/2014; PTCA andDES to proximal and distal CX per Dr. Hatfield 12/21/2014; History of coronary artery bypass graft (Chronic) Z95.1 CABG X 3 vessels [facility]:DANIEL to LAD, reverse SVG to dx and to 2nd OM per Dr. Borjas @ [facility] 09/09/2014 Surgical History: appendectomy, coronary bypass surgery, gastric bypass, tonsillectomy, - - Cardiac stent, , Carpal tunnel release, 3rd toe amputation, carotid endarterectomy, right foot 5th ray amputation, right foot transmetatarsal amputation. 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 Smoking Status: Never smoker Tobacco Use: Non-smoker - *Family History Paternal Family History: Family History (Last Reviewed 05/08/18 @ 13:15 by Madison Alicea) Mother Cancer CVA (cerebral vascular accident) CAD (coronary artery disease) Father CAD (coronary artery disease) History of coronary artery bypass graft Sister CAD (coronary artery disease) Multiple sclerosis History Items: No pertinent history Maternal Family History: Family History (Last Reviewed 05/08/18 @ 13:15 by Madison Alicea) Mother Cancer CVA (cerebral vascular accident) CAD (coronary artery disease) Father CAD (coronary artery disease) History of coronary artery bypass graft Sister CAD (coronary artery disease) Multiple sclerosis History Items: No pertinent history Review of Systems Constitutional: Denies: Chills, Fever, Weight Change HEENT: Denies: Head Aches, Sinus Congestion, Sinus Drainage Cardiovascular: Denies: Chest Pain, Palpitations Respiratory: Denies: Cough, Shortness of breath at rest, Sputum production Gastrointestinal: Denies: Abdominal Pain, Nausea, Vomiting Genitourinary: Denies: Dysuria Musculoskeletal: Reports: Back Pain, Joint Pain. Denies: Joint Tenderness Skin: Denies: Rash, Wounds Neurological: Denies: Numbness, Tingling, Focal weakness Psychiatric: Reports: Anxiety. Denies: Depression, Homicidal Ideations, Suicidal Ideations Hematologic/ Lymphatic: Denies: Easy Bruising, Easy Bleeding Patient Problems: Active and Suspected Problems (Last Reviewed 05/08/18 @ 13:15 by Madison Alicea) Ulcer of left foot (Acute) - Physical Exam General: Alert, Oriented x3, Cooperative HEENT: Atraumatic, PERRLA, EOMI, Normocephalic Neck: Supple, No JVD, Negative Carotid Bruits Lungs: Clear to auscultation, Normal air movement, No rhonchi, No wheeze, No rales Cardiovascular: Regular rate, Regular Rhythm, Normal S1, Normal S2, Irregular Rate, Murmur Abdomen: Bowel Sounds Present, Soft, Non Tender, Non-Distended Extremities: No edema, Capillary Refill Less than 3 Seconds Skin: No rashes, No breakdown Musculoskeletal: No Tenderness to Palpation of Joints or Extremities, Arthritic Changes, Tenderness Neurological: Cranial nerves II-XII grossly intact, Deep Tendon Reflexes 2+/4 and Symmetrical, Neuro grossly intact, - - Numbness present in the left foot and left leg. Psych/Mental Status: Normal Affect, Appropriate Vital Signs Temp Pulse Resp BP Pulse Ox 98.2 F 78 18 104/44 L 100 06/17/18 17:46 06/17/18 17:46 06/17/18 17:46 06/17/18 17:46 06/17/18 17:46 Oxygen Delivery Method Room Air Weight: 177 lb 7.554 oz Body Mass Index (BMI) 30.4 Finger Stick Blood Glucose 193 Intake and Output for Last 24 Hours Intake Total 1775 / 1775 Output Total 140 / 140 Balance 1635 / 1635 Laboratory Tests Past 24 Hrs S.aureus Protein A PCR NEGATIVE MRSA (PCR) Negative POC Glucose POC Glucose 134 H 163 H Assessment/Plan All Active Problems (Last Reviewed 05/08/18 @ 13:15 by Madison Alicea) Ulcer of left foot (Acute) Abscess of right foot (Acute) Ulcer at the right metatarsal head (Acute) osteomylitis right little toe (Resolved) Severe sepsis (Resolved) Acute kidney injury (Resolved) Dehydration (Resolved) Acute delirium (Resolved) Hyponatremia (Resolved) Foot ulcer (Resolved) Osteomyelitis of right foot (Acute) Sepsis (Resolved) Hypotension (Resolved) UTI (urinary tract infection) (Resolved) Gangrene of toe (Resolved) Cellulitis of toe, right (Resolved) Gangrene (Resolved) The patient is a 73 year old F with multiple comorbidities as listed above including type 2 diabetes mellitus who is admitted by rouge mixer electively for surgery of Exostectomy left foot with bone biopsy for Charcot joint of midfoot dislocation and ulcer formation, rule out osteomyelitis. Patient left foot is normal after anesthesia. She denies any chest pain, shortness of breath, palpitation, abdominal pain. She denies new lower urinary tract symptoms except she has increased frequency secondary to diabetes mellitus and being on diuretics. She has Grayson catheter. She has multiple comorbidities including type 1 diabetes mellitus with diabetic polyneuropathy, Charcot joint, coronary artery disease status post triple vessel CABG, stents, last one as per patient 2 years ago, osteomyelitis of right foot, history of C. difficile colitis, acute kidney injury, carotid artery disease, and hypertension. [] 1. Charcot joint of the left foot status post Exostectomy left foot with bone biopsy: The patient is being admitted by rouge mixer on regular MedSurg floor. Pain control. 2. Coronary artery disease status post CABG and stents: Patient had dobutamine stress test in December 2017 and was negative for ischemia by EKG and echocardiographic criteria. Estimated EF 65%. teletypesetter monitor. Since patient has irregular heartbeat, twelve-lead EKG ordered. Check BMP, magnesium. 3. Diabetes mellitus type 2: Patient is on Levemir 30 units twice daily and insulin aspart 14 units subcu 3 times daily pre-meal. Accu-Chek S and at bedtime cover with NovoLog sliding scale. A1c tomorrow a.m. 4. Hypertension: Blood pressure is controlled. 5. Other chronic history includes hypothyroidism, carotid artery disease, hypertension and osteomyelitis of right foot: Home medication reconciliation done. DVT prophylaxis: On Lovenox 40 minutes of daily. discontinue if platelet count drops less than 90,000 or hemoglobin less than 8 g% This note was generated with Qlibri dictation software. Every effort was made to ensure accuracy, however computerized dude wrangler mistakes may persist. Active Medications Hydrocodone Bitart/Acetaminophen ([place] 5mg-325mg) 1 tablet PO Q6H PRN PRN PRN Reason: SEVERE PAIN (6-03/05) Last Admin: 06/17/18 19:10 Dose: 1 tablet Enoxaparin Sodium (Lovenox) 40 mg SC DAILY [facility] Cefazolin Sodium 2 gm/ Sodium (Chloride) 110 mls @ 150 mls/hr IV Q8 SHAHBAZ Stop: 06/18/18 19:00 Last Admin: 06/17/18 19:51 Dose: 150 mls/hr Nutritional Formula (Blue - [place] Flavor) 1 packet PO BIDCM SHAHBAZ Last Admin: 06/17/18 19:08 Dose: 1 packet Ondansetron HCl (Zofran) 4 mg IV Q8H PRN PRN PRN Reason: NAUSEA/VOMITING Sodium Chloride () 5 - 15 ml IV UD PRN PRN Reason: SALINE FLUSH Laboratory Results 06/17/18 12:37: POC Glucose 163 H 06/17/18 14:59: S.aureus Protein A PCR NEGATIVE, MRSA (PCR) Negative 06/17/18 17:11: POC Glucose 134 H Clinical Impression(s) from Imaging Studies Chest X-Ray 06/13/18 15:20 IMPRESSION: No acute abnormality is seen. Code Visit Inpatient E AND M: [id number] Init Hosp L3 06/17/182006 <Electronically signed by Ovi Willson MD> Date Ovi Willson MD Cosigner Signature (if applicable): Date CC: Con Johnson MD; Jose M Moseley; Ivanna Magana DPM Signed BEDSIDE GLUCOSE Collected: 06/17/2018 Status: F Source: [place] 5:[address] [facility] REPOSITORY TYPE CODE TESTS RESULT OUT OF REFERENCE UNITS RANGE LAB L501.080 70-110 mg/dL High BEDSIDE GLU 134 Result Comment: MANAGEMENT OF PATIENT CARE PER NURSING PROTOCOL Performed By: #### L501.080 #### [facility] Point of Care [address] [place] [address] MRSA WOUND DNA BY Collected: 06/17/2018 Status: F Source: [place] PCR 2:[address] [facility] REPOSITORY Order Comment: Comments: Left Foot Bone TYPE CODE TESTS RESULT OUT OF RANGE REFERENCE UNITS LAB L8200.1100 Negative Normal MRSA Negative RESULT LAB L8200.1150 Negative Normal SA RESULT NEGATIVE Performed By: #### L8200.1075, M100.1500 #### [facility] [address] [place], [address] Observed: 06/17/2018 Status: P Source: [place] CULTURE, DEEP WOUND 2:[address] [facility] REPOSITORY Order Date: 12/26/16 Comments: Left Foot Bone Gram Stain Gram Stain Rare Red Blood Cells No organisms seen Wound Culture No growth-Final to follow Performed By: #### L8200.1075, M100.1500 #### [facility] [address] [place], [address] BEDSIDE GLUCOSE Collected: 06/17/2018 Status: F Source: [place] 12:[address] [facility] REPOSITORY TYPE CODE TESTS RESULT OUT OF REFERENCE UNITS RANGE LAB L501.080 70-110 mg/dL High BEDSIDE GLU 163 Result Comment: MANAGEMENT OF PATIENT CARE PER NURSING PROTOCOL Performed By: #### L501.080 #### [facility] Point of Care [address] [place] [address] FOOT 2 VIEWS Observed: 06/17/2018 Status: F Source: [place] 12:[address] [facility] REPOSITORY [facility] Imaging Services [address] [place] [address] Foot 2 Views MR#: [id number] Acct: [id number] Name: LISA SEAY Rep #: [id number] : 1945 F 73 From: Delvin Morton MD PCP: Con Johnson MD Status: ADM YOKO Study: Foot 2 Views Date of Exam: 06/17/18 Exam# [id number] Ordering Dr: Ivanna Magana DPM STUDY: X-RAY - LEFT FOOT CLINICAL: Female, 73 years old. Left foot bone biopsy. TECHNIQUE: 2 view(s) of the foot. COMPARISON: None. FINDINGS: Intraoperative imaging provided for bone biopsy. RAD/Foot 2 Views IMPRESSION: Intraoperative imaging provided for bone biopsy. Electronically Signed: Delvin Morton MD at 8:20 EST Tel [phone], Service support , CC: Con Johnson MD; Ivanna Magana DPM Electrical Software Engineer: Signed 12 LEAD ELECTROCARDIOGRAM Observed: 06/16/2018 Status: F Source: [place] 9:[address] [facility] REPOSITORY [facility] Cardiovascular Services [address] [place] [id number] 12 Lead EKG 06/13/18 1540 MR#: [id number] Acct: [id number] Name: LISA SEAY Rep #: [id number] : 1945 72 From: Trenton Prescott MD Attending Dr: Ivanna Magana DPM Status: PRE SDC Ordering Dr: Ivanna Magnaa DPM Date: 06/13/18 Location: [facility] [place] Sex: F C Admitted: Test Reason : PRE OP Blood Pressure : / mmHG Vent. Rate : 070 BPM Atrial Rate : 070 BPM P-R Int : 182 ms QRS Dur : 084 ms QT Int : 390 ms P-R-T Axes : 049 -27 128 degrees QTc Int : 421 ms Normal sinus rhythm with sinus arrhythmia ST AND T wave abnormality, consider lateral ischemia Abnormal ECG Confirmed by TRENTON PRESCOTT MD ([id number]), supervising editor news reel TORO STRONG ([email or web address]) on 06/16/2018 9:40:31 AM Referred By: Ivanna Magana Confirmed By:TRENTON PRESCOTT MD 06/16/18 0940 Date Trenton Prescott MD CC: Con Johnson MD; Ivanna Magana DPM Signed CHEST PA AND LATERAL Observed: 06/13/2018 Status: F Source: [place] 3:[address] [facility] REPOSITORY [facility] Imaging [facility] [address] [place] [address] Chest PA and Lateral MR#: [id number] Acct: [id number] Name: LISA SEAY Rep #: [id number] : 1945 F 72 From: Delvin Morton MD PCP: Con Johnson MD Status: PRE INC Study: Chest PA and Lateral Date of Exam: 06/13/18 Exam# [id number] Ordering Dr: Ivanna Magana DPM STUDY: X-RAY CHEST REASON FOR EXAM: Female, 72 years old. Pathology evaluation. TECHNIQUE: PA and lateral views of the chest. COMPARISON: Comparison is made with prior examination dated November 26, 2016. FINDINGS: The lungs are clear and expanded. There is no demonstrated pleural abnormality. Sternal cerclage wires and vascular clips are present from a prior sternotomy and coronary artery bypass graft procedure (CABG). Normal mediastinum and oniel. Normal visualized pulmonary arteries. There is atherosclerotic calcification of the aortic arch with tortuosity. Normal visualized thoracic spine. Prior fusion of the lower cervical spine. Small hiatal hernia. RAD/Chest PA and Lateral IMPRESSION: No acute abnormality is seen. Electronically Signed: Delvin Morton MD at 15:40 EST Tel [phone], Service support , CC: Con Johnson MD; Ivanna Magana DPM Electrical Software Engineer: Signed CBC W/DIFF, AUTOMATED Collected: 06/13/2018 Status: F Source: [place] 3:[address] [facility] REPOSITORY TYPE CODE TESTS RESULT OUT OF RANGE REFERENCE UNITS LAB L100.1000 4.4-11.0 K/mm3 Normal WBC 8.2 LAB L100.1200 4.2-5.4 M/mm3 Normal RBC 4.86 LAB L100.1300 12.0-15.0 g/dl Normal HGB 12.8 LAB L100.1400 37-47 % Normal HCT 40.0 LAB L100.1500 81-99 fL Normal MCV 82.3 LAB L100.1600 27.0-32.0 pg Low MCH 26.3 LAB L100.1700 32-36 g/gl Normal MCHC 32.0 LAB L100.1810 11.6-14.6 % High RDW CV 17.0 LAB L100.1820 35.1-43.9 fl High RDW SD 50.0 LAB L100.1900 150-450 K/mm3 Normal PLT 262 LAB L100.2000 6.2-12.0 fl Normal MPV 9.7 LAB L100.2100 47-70 % Normal NEUT% 56.8 LAB L100.2200 19-41 % Normal LY% 32.2 LAB L100.2300 0-10 % Normal MONO% 8.8 LAB L100.2400 0-5 % Normal EO% 1.6 LAB L100.2500 0-1 % Normal BASO% 0.4 LAB L100.2550 0.0-0.9 % Normal IM GRAN % 0.200 Result Comment: IG% - Immature Granulocytes (promyelocytes, myelocytes and metamyelocytes) > 1% indicates that a LEFT SHIFT is Present. LAB L100.2620 2.0-7.7 X10 3/uL Normal Absolute Neut 4.7 LAB L100.2720 0.83-4.51 X10 3/ul Normal Absolute Lymph 2.64 Performed By: #### L100.0100, L101.9900 #### [facility] [address] [place], [address] ERYTHROCYTE SED RATE Collected: 06/13/2018 Status: F Source: [place] 3:[address] [facility] REPOSITORY TYPE CODE TESTS RESULT OUT OF RANGE REFERENCE UNITS LAB L102.0000 0-30 mm/hr Normal SED RATE 25 Performed By: #### L100.0100, L101.9900 #### [facility] [address] [place], [address] VITAMIN D,25 HYDROXY Collected: 06/13/2018 Status: F Source: [place] 3:[address] [facility] REPOSITORY TYPE CODE TESTS RESULT OUT OF RANGE REFERENCE UNITS LAB L506.1000 29.95-100.01 ng/mL Normal Vitamin D 37.1 25-OH Result Comment: Vitamin D 25(OH) Status Range Deficiency <20 ng/mL (50nmol/L) Insuffciency 20 - 30 ng/mL (50 - 75 nmol/L) Sufficiency 30 - 100 ng/mL (75 - 250 nmol/L) Toxicity >100 ng/mL (>250 nmol/L) Performed By: #### L506.1000 #### [facility] [address] [facility] [place], [address] COMPREHENSIVE METABOLIC Collected: 06/13/2018 Status: F Source: [place] [facility] 3:[address] [facility] REPOSITORY TYPE CODE TESTS RESULT OUT OF RANGE REFERENCE UNITS LAB L501.0100 74-106 mg/dL Normal GLU 81 Result Comment: Please note revised GLUCOSE reference range effective 2017. LAB L501.1000 7-18 mg/dL High BUN 25 LAB L501.1100 0.55-1.02 mg/dL High CREAT,SERUM 1.33 Result Comment: The validity of the calculated GFR AND GFRAA in patients over 70 years has not been determined. Clinical correlation is essential. LAB L501.1110 >60 mL/min Low EST GFR 42 Result Comment: Non- GFR Calc LAB L501.1115 >60 mL/min Low EST GFR - AA 51 Result Comment: GFR Calc LAB L501.1300 10-20 RATIO Normal BUN/CRE 18.8 LAB L501.1500 6.4-8.2 g/dL T Normal PROT 7.2 LAB L501.1800 3.2-5.0 g/dL Normal ALB 3.5 LAB L501.1950 2.2-4.2 g/dL Normal GLOB 3.7 LAB L501.2000 0.9-2.4 RATIO Normal A/G 0.9 LAB L501.2200 8.5-10.1 mg/dL CA Normal 8.7 LAB L501.4100 15-37 U/L Normal AST 21 LAB L501.4305 45-117 U/L Normal ALK P 92 LAB L501.4405 13-56 U/L Normal ALT 23 LAB L501.4600 0.20-1.00 mg/dL T Normal BILI 0.30 LAB L501.5300 136-145 mmol/L NA Normal 140 LAB L501.5600 3.5-5.1 mmol/L K Normal 5.0 LAB L501.5900 98-107 mmol/L CL Normal 107 LAB L501.6100 21.0-32.0 mmol/L Normal CO2 24.0 LAB L501.6200 5-15 Normal GAP 9 Performed By: #### L500.4050, L501.6710 #### [facility] [address] [place] [address]. [place], [address] CRP Collected: 06/13/2018 Status: F Source: [place] 3:[address] [facility] REPOSITORY TYPE CODE TESTS RESULT OUT OF RANGE REFERENCE UNITS LAB L501.6710 0.0-3.0 mg/L Normal < 2.90 C-REACTIVE PROT Result Comment: C-Reactive Protein (CRP) provides useful information for the diagnosis, therapy and monitoring of inflammatory processes and associated diseases. For the evaluation of Relative Risk for Cardiovascular Disease, a High Sensitivity CRP (HSCRP) should be ordered. Performed By: #### L500.4050, L501.6710 #### [facility] [address] [facility] [address] DISCHARGE INSTRUCTION Observed: 06/07/2018 Status: F Source: [place] 3:[address] [facility] REPOSITORY [facility] Medical Records Department [address] [place] [address] Discharge Instruction 06/07/18 1553 MR#: [id number] Acct: [id number] Name: LISA SEAY Rep #: [id number] : 1945 72 From: Clemente Eduardo MD PCP: Con Johnson MD Status: REG ER ED Disposition - Plan for ED Patient: Disposition: Home or Assisted Living Chief Complaint: Lower Extremity Injury Instructions: ED Wound Infec After Surgery Prescriptions: Cephalexin [Keflex] 500 mg PO Q12 #14 cap Referrals: Con Johnson MD [Primary Care Provider] - What to do if you have Problems For any increased pain, shortness of breath, bleeding, nausea or vomiting, chest pain, or any unexpected problems, contact your Primary Care Provider. Call [facility] ([phone]) or report to the closest Emergency Room. Call 911 if necessary. 06/07/18 1555 <Electronically signed by Clemente Eduardo MD> Date Clemente Eduardo MD Cosigner Signature (If Indicated): Date CC: Con Johnson MD EMERGENCY DEPARTMENT Observed: 06/07/2018 Status: F Source: [place] SUMMARY 3:[address] [facility] REPOSITORY [facility] Medical Records Department [address] [place] [address] Emergency Department Summary 06/07/18 1549 MR#: [id number] Acct: [id number] Name: LISA SEAY Rep #: [id number] : 1945 72 From: Clemente Eduardo MD PCP: Con Johnson MD Status: REG ER - ER Visit Summary Date of Service: 06/07/18 Chief Complaint: Left foot pain/redness History of Present Illness: The patient is a 72 F who has left foot pain and redness. Is been ongoing for 2 days. Patient has a history of Charcot foot. She was wearing a hard cast that was removed 2 days ago. When it was removed by the rouge mixer she had no redness. However it is becoming more painful and she notes some redness around this abrasion. The rouge mixer believe that the cast created a little bit of a blister on the medial part of the left foot. She says there is a small amount of drainage that happened this morning. This pain is worse with having a shoe on. She is scheduled to have a surgery done in 5 days. Physical Examination: Vital signs reviewed. Patient afebrile. Left foot exam reveals tenderness palpation of the medial left foot. There is an abrasion with surrounding erythema. No abscess or drainage. 2+ DP pulses Test Results: None performed Emergency Department Course and Treatment: I discussed with the rouge mixer on-call, Dr. Padgett. We both agree antibiotics will be the appropriate course of action. We will do Keflex. Patient will follow-up next week. Treatment Plan: [] Disposition: Discharge Impression: Left foot wound infection This note was generated with Qlibri dictation software. It may contain incorrect words, spelling, and punctuation that were not noted in review of the chart prior to signing ED Disposition - Plan for ED Patient: Chief Complaint: Lower Extremity Injury Referrals: Con Johnson MD [Primary Care Provider] - What to do if you have Problems For any increased pain, shortness of breath, bleeding, nausea or vomiting, chest pain, or any unexpected problems, contact your Primary Care Provider. Call [facility] ([phone]) or report to the closest Emergency Room. Call 911 if necessary. 06/07/18 2503 <Electronically signed by Clemente Eduardo MD> Date Clemente Eduardo MD Cosigner Signature (If Indicated): Date CC: Con Johnson MD Observed: 06/05/2018 Status: F Source: [place] CULTURE, WOUND 3:[address] [facility] REPOSITORY Gram Stain Gram Stain 1+ White Blood Cells 1+ Epithelial cells 1+ Gram positive cocci Wound Culture Possible skin contamination, further Identification and sensitivity will be performed only by physician's request. ORGANISM 1: Coag Negative Staph Amount Growth 1+ Performed By: #### M100.1400 #### [facility] [address] [place], [address] OT D/C OF NON Observed: 05/22/2018 Status: F Source: [place] RETURNING PT 5:[address] [facility] REPOSITORY [facility] [address] [place] [address] / REHABILITATION SERVICES DISCHARGE SUMMARY MR#: [id number] Acct: [id number] Name: LISA SEAY Rep #: [id number] : 1945 72 From: Melissa Sorensen Referring Dr.: Con Johnson MD Status: REG RCR Eval Date: Discharge Date: HP - Discharge Summary - Patient Information LISA SEAY was seen in my office for initial evaluation on 03/10/18. The following Plan of Care was established for this patient: Initial Frequency: 2x /Week Initial Duration: 4 Weeks Plan: continue POC. - Anticipated Interventions Anticipated Interventions: A/AAROM/PROM, Strengthening, Joint Protection/Energy Conservation, Ergonomic Education, Fine Motor Coord/Tom, Neuro Reeducation, ADL Training, Education re assistive Equipment, Caregiver Training, Home Program This patient was last seen in our office 03/19/18. Pertinent comments regarding their Occupational therapy will appear below: Pt. was to continue POC but did not attend or canceled remaining appointments and will be discharged at this time. At this point I will be discontinuing this patient from occupational therapy. I would be happy to see this patient again in the future if found appropriate by the physician. Thank you! Melissa Sorensen <Electronically signed by Melissa Sorensen > 05/22/18 1714 CC: Con Johnson MD [facility] Signed CARDIOLOGY VISIT Observed: 05/22/2018 Status: F Source: [place] REPORT 3:[address] [facility] REPOSITORY [place] [facility] [address] [place] [address] OFFICE VISIT Date of Service: 05/22/18 MR#: [id number] Acct: [id number] Name: LISA SEAY Rep #: [id number] : 1945 Provider: Maribell Chau Age/Sex: 72/F Location: [facility] Status: Signed HPI HPI Details: LISA SEAY, is a 72 F who presents to the office today for a cardiovascular outpatient follow-up. Patient has a history of coronary artery disease status post bypass surgery in August 2014 with a DANIEL to LAD, SVG to diagonal, and SVG to OM #2. She also has a history of drug-eluting stenting to left main, LAD, and OM1 in November 2014, hypertension, hyperlipidemia, type 2 diabetes, palpitation, neck fusion, and gastric bypass. Patient was seen in the office 2 weeks ago, it was noted that her blood pressures were still elevated from her hospital stay. Her medications were adjusted Bp are better controlled with adjustments, She is having highs and lows. She is concerned with her low readings. She is having night sweats. This did stop. She is not have any chest pain/heaviness/tightness. She does not have any worsening SOB. She does not have any palpitations. She does not have any syncope. 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 Required: No Accompanied by: Is patient in pain?: No Allergies Penicillins Allergy (Severe, Verified 05/22/18 14:01) Unknown atorvastatin calcium [From Lipitor] Allergy (Verified 05/22/18 14:01) Unknown bupropion HCl [From Wellbutrin] Allergy (Verified 05/22/18 14:01) Unknown mannitol [From Reclast] Allergy (Verified 05/22/18 14:01) joint pain, unable to breathe, unable to walk propoxyphene napsylate [From Darvocet-N 100] Allergy (Verified 05/22/18 14:01) Unknown Quinolones Allergy (Verified 05/22/18 14:01) Unknown Tetanus Vaccines and Toxoid [Tetanus Vaccines AND Toxoid] Allergy (Verified 05/22/18 14:01) Chest tightness tizanidine Allergy (Verified 05/22/18 14:01) Unknown zoledronic acid [From Reclast] Allergy (Verified 05/22/18 14:01) joint pain,unable to breathe, unaable to walk pravastatin Adverse Reaction (Severe, Verified 05/22/18 14:01) Myalgias gemfibrozil Adverse Reaction (Intermediate, Verified 05/22/18 14:01) Unknown NSAIDS (Non-Steroidal Anti-Inflamma Adverse Reaction (Verified 05/22/18 14:01) Other Medications Aspirin [Aspirin, Baby] 81 mg PO DAILY@0800 03/10/17 [History Confirmed 05/22/18] Levothyroxine Sodium [Levoxyl] 75 mcg PO QHS 03/10/17 [History Confirmed 05/22/18] Nitroglycerin [Nitrostat] 0.4 mg SUBLINGUAL Q5M PRN 03/10/17 [History Confirmed 05/22/18] Pantoprazole Sodium [Protonix] 40 mg PO DAILY 03/10/17 [History Confirmed 05/22/18] Pravastatin Sodium 40 mg PO DAILY 03/10/17 [History Confirmed 05/22/18] Ergocalciferol [Vitamin D] 50,000 unit PO Q7D cap 07/08/17 [Rx Confirmed 05/22/18] Insulin Detemir [Levemir FlexPen] 30 units SC BID 07/25/17 [History Confirmed 05/22/18] clopidogrel 75 mg tablet 75 mg PO DAILY #90 tab 11/25/17 [Rx Confirmed 05/22/18] mqwblw-xfyeuybh-bobyrwl 24,000-76,000-120,000 unit capsule,delayed rel 1 cap PO QAC cap 01/30/18 [History Confirmed 05/22/18] amlodipine 5 mg tablet 5 mg PO DAILY tab 05/05/18 [History Confirmed 05/22/18] allopurinol 100 mg tablet 100 mg PO DAILY 05/08/18 [History Confirmed 05/22/18] carvedilol 12.5 mg tablet 12.5 mg PO BID #180 tab 05/08/18 [Rx Confirmed 05/22/18] hydroxyzine HCl 50 mg tablet 25 mg PO TID-QID PRN tab 05/08/18 [History Confirmed 05/22/18] insulin aspart U- 100 100 unit/mL subcutaneous pen 12 unit SC TIDAC ml 05/08/18 [History Confirmed 05/22/18] quetiapine 50 mg tablet 100 mg PO QHS tab 05/08/18 [History Confirmed 05/22/18] lisinopril 10 mg tablet 10 mg PO BID #180 tab 05/14/18 [Rx Confirmed 05/22/18] alendronate 40 mg tablet PO 90 Days #90 tab 05/22/18 [History Confirmed 05/22/18] isosorbide mononitrate ER 30 mg tablet,extended release 24 hr 30 mg PO BID tab 05/22/18 [History Confirmed 05/22/18] PFSH Medical History History of CVA (cerebrovascular accident) (Chronic) Atherosclerotic heart disease of [place] coronary artery without angina pectoris (Chronic) Diabetes mellitus (Chronic) History of stroke (Chronic) Carotid artery disease (Chronic) Malnutrition (Chronic) Diabetes mellitus with polyneuropathy (Chronic) Peripheral vascular disease (Chronic) Hypertension (Chronic) Chronic pain (Chronic) Hyperlipidemia (Chronic) Coronary artery disease (Chronic) Hypothyroidism (Chronic) Iron deficiency anemia (Chronic) GERD (gastroesophageal reflux disease) (Chronic) Surgical History Stented coronary artery (Chronic 12/21/14) History of left heart catheterization (Chronic) History of coronary artery bypass graft (Chronic) Family History Mother , age 75 Cancer CVA (cerebral vascular accident) CAD (coronary artery disease) Father CAD (coronary artery disease) History of coronary artery bypass graft Sister CAD (coronary artery disease) Multiple sclerosis Social History Smoking Status: Never smoker alcohol intake: never substance use type: does not use caffeine: Yes Type: coffee what type of physical activity do you participate in: none seatbelt use: sometimes do you feel safe at home: Yes ROS Const Const: Positive for other; negative for fatigue, body ache, fever(s), chills, night sweats, daytime sleepiness, difficulty sleeping, excessive sweating, weight gain, weight loss, increased appetite, poor appetite, anorexia, frequent falls, headache(s) or weakness Eyes Eyes: Negative for blind spots, loss of peripheral vision, transient loss of vision, change in vision, floaters, tunnel vision, other, blurry vision or double vision ENT ENT: Positive for balance problems; negative for headache(s) Cardio Chest Pain: No Palpitations: No Edema: Left (Charcot disease in left foot, wearing brace. Rt foot amputated for osteomyelitis) Muscle aches with walking: Left Resp Respiratory: Negative for SOB with activity, SOB at rest, SOB orthopnea\SOB lying down, Cough, Coughing up blood/hemoptysis, chest congestion, pain on inspiration, snoring, stridor, wheezing, crackles, paroxysmal nocturnal dyspnea or other GI GI: Negative nausea, vomiting, heartburn, constipation, belching, bloating, cramping, vomiting blood/hematemesis, bright, red blood in stools, black,tarry stools, loose stools, Difficulty Swallowing or other : Negative for hematuria, frequent nighttime urination/ nocturia, erectile dysfunction or abnormal vaginal bleeding Musc Musc: Positive for balance problems, muscle aches/ myalgia, muscle weakness and joint pain Skin Skin: Negative redness, non-healing lesions, rash, unusual bruising, skin ulcer, wounds, jaundice or other Neuro Neuro: Negative for frequent falls, headache(s), weakness, blurry vision or double vision [place] Hematologic/Lymphatic: Negative for easy bleeding, easy bruising, enlarged lymph nodes or other Endo Endo: Negative for fatigue or excessive sweating Psych Psych: Negative for anxiety, depression, thoughts of harming anyone, thoughts of harming yourself, visual hallucinations, panic attacks or audible hallucinations Allergy Allergy/Immunology: Negative for rash Cardiology Exam Const Appearance: cooperative, no acute distress and well developed Orientation: alert, awake and oriented x3 Head Head: normocephalic and atraumatic Mouth: moist mucous membranes Eyes General: appearance normal, both eyes and all related structures Conjunctivae: conjunctivae normal Pupils: PERRL EOM: EOM intact bilaterally Neck Neck: normal visual inspection, no lymphadenopathy and no JVD Carotids: Negative bruit Neck Mass: Negative Neck mass Chest Chest inspection: normal inspection of the chest and symmetric chest movement Auscultation: Bilateral: Clear to Auscultation Cardio Palpation: normal PMI Rate: regular rate Rhythm: regular rhythm Heart sounds: S1 normal and S2 normal; negative rub, gallop or murmur GI GI: normal to inspection, soft, no hepatosplenomegaly and bowel sounds present; negative tender Neuro General: alert, awake, oriented x3, CN's II-XI intact bilaterally and moves all extremities Extremities Pulses: Normal: Left Posterior Tibial Pulse, Right Radial Pulse, Left Radial Pulse Lower Extremity Edema: None: Bilateral Right leg in boot Psych Psychological: normal affect Assessment AND Plan 1. Atherosclerosis of [place] coronary artery of [place] heart without angina pectoris I25.10 CABG X 3 vessels [facility]: DANIEL to LAD, reverse SVG to dx and to 2nd OM per Dr. Borjas @ [facility] 09/09/2014; PTCA/YASIR to Left main, LAD, and OM1 per Dr. Hatfield 12/21/2014; Plan Stable, from a cardiac standpoint patient does not have any symptoms of angina. We recommend that they continue with current aggressive medical management and risk factor modification. 2. Essential hypertension I10 Plan Blood pressure is better controlled on current medications. She is still having highs and lows. However her eyes are better controlled. For now hesitant to make any adjustments. Patient was instructed to continue to monitor blood pressure readings. If she finds that it is consistently above 140 that she should give our office a call. 3. Mixed hyperlipidemia E78.2 Plan Recent lipid profile has been reviewed. Patient will continue with his current dose of moderate intensity statin. 4. Peripheral arterial occlusive disease I77.9 Plan Patient does follow with vascular. Plan Detail Additional Comments Thank you for allowing us to participate in patient's plan of care, if you have any questions please do not hesitate to call. This note was generated using a voice recognition system and there may be incorrect words, spelling or punctuation errors that were not noted when reviewing the office note prior to saving. Follow Up 05/22/18 (keep as is) Coding Level of Care Code Off vis,est,level 3 Diagnoses Atherosclerosis of [place] coronary artery of [place] heart without angina pectoris I25.10 [place] vs. transplanted heart: [place] heart Essential hypertension I10 Hypertension type: essential hypertension Mixed hyperlipidemia E78.2 Hyperlipidemia type: mixed hyperlipidemia Peripheral arterial occlusive disease I77.9 Coding Level of Care Code Off vis,est,level 3 Diagnoses Atherosclerosis of [place] coronary artery of [place] heart without angina pectoris I25.10 [place] vs. transplanted heart: [place] heart Essential hypertension I10 Hypertension type: essential hypertension Mixed hyperlipidemia E78.2 Hyperlipidemia type: mixed hyperlipidemia Peripheral arterial occlusive disease I77.9 05/22/18 1558 <Electronically signed by Maribell FLORES> Date Maribell FLORES Cosigner Signature: Date (if applicable) CC: Con Johnson MD CARDIOLOGY VISIT Observed: 05/08/2018 Status: F Source: [place] REPORT 1:[address] [facility] REPOSITORY [facility] [address] [place] [address]. [address] [place] [address] OFFICE VISIT Date of Service: 05/08/18 MR#: [id number] Acct: [id number] Name: LISA SEAY Rep #: [id number] : 1945 Provider: Claus Hatfield MD Age/Sex: 72/F Location: [facility] Status: Signed HPI HPI Chief Complaint: Routine f/u Details: LISA SEAY, is a 72 F who presents to the office today for a cardiovascular outpatient follow-up. Patient has a history of coronary artery disease status post bypass surgery in August 2014 with a DANIEL to LAD, SVG to diagonal, and SVG to OM #2. She also has a history of drug-eluting stenting to left main, LAD, and OM1 in November 2014, hypertension, hyperlipidemia, type 2 diabetes, palpitation, neck fusion, and gastric bypass. 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 Patient states that she was doing well up until several months ago or so when she went to the [facility] and developed exertional substernal chest pressure and pain. She did not take any nitroglycerin tablets, and her pain actually got worse when she rested. Upon her return she underwent a dobutamine echocardiogram on 01/13/18 which was negative for inducible ischemia. Since then she has had a couple of episodes of left upper arm pain and shoulder pain with exertion which is relieved with sublingual nitroglycerin. She has not had a repeat catheterization since her bypass surgery in 2014. Her blood pressures at home range between 120 and 180 systolic, and there appears to be some correlation with her chest pain and her hypertension episodes. To be sure, the patient underwent a debridement echocardiogram in 01/13/18 which was negative for inducible ischemia. No additional catheterization was performed. Patient is now here in follow-up. Around 2017 the patient developed severe pain in her ankle, and was diagnosed with Charcot joint while down in [place]. The patient was admitted to a [place] hospital for approximately 7 days and then subsequently discharged. At that time her blood pressure was found to be quite high in the 200s and she had an occasional episode of atypical nonexertional chest pain when her sugars were quite high. Since discharge she has been doing fairly well but is to undergo a IV infusion of anti-inflammatory medication. Her blood pressures have been ranging in the 150s-200s at home. For some reason she was placed on 2 beta-fina therapies in [place]. In our office today her blood pressure is 130/50, pulse is 72 and regular. Physical exam is as below. She has no reproducible chest pain or left arm pain. Lipids as of 07/03/16 show an HDL of 47 and an LDL of 106. Repeat lipids are pending. Intake Vital Signs05/08/18 Height 5 ft 3 in 05/08/18 Weight: 183 lb 05/08/18 Body Mass Index (BMI) 32.4 05/08/18 Blood Pressure 130/50 H Intake Visit Reasons: 3 M FU (says 6 in comp, pt says 3) Allergies Penicillins Allergy (Severe, Verified 01/30/18 15:30) Unknown atorvastatin calcium [From Lipitor] Allergy (Verified 01/30/18 15:30) Unknown bupropion HCl [From Wellbutrin] Allergy (Verified 01/30/18 15:30) Unknown mannitol [From Reclast] Allergy (Verified 01/30/18 15:30) joint pain, unable to breathe, unable to walk propoxyphene napsylate [From Darvocet-N 100] Allergy (Verified 01/30/18 15:30) Unknown Quinolones Allergy (Verified 01/30/18 15:30) Unknown Tetanus Vaccines and Toxoid [Tetanus Vaccines AND Toxoid] Allergy (Verified 01/30/18 15:30) Chest tightness tizanidine Allergy (Verified 01/30/18 15:30) Unknown zoledronic acid [From Reclast] Allergy (Verified 01/30/18 15:30) joint pain,unable to breathe, unaable to walk pravastatin Adverse Reaction (Severe, Verified 01/30/18 15:30) Myalgias gemfibrozil Adverse Reaction (Intermediate, Verified 01/30/18 15:30) Unknown NSAIDS (Non-Steroidal Anti-Inflamma Adverse Reaction (Verified 01/30/18 15:30) Other Medications Aspirin [Aspirin, Baby] 81 mg PO DAILY@0800 03/10/17 [History Confirmed 05/08/18] Levothyroxine Sodium [Levoxyl] 75 mcg PO QHS 03/10/17 [History Confirmed 05/08/18] Nitroglycerin [Nitrostat] 0.4 mg SUBLINGUAL Q5M PRN 03/10/17 [History Confirmed 05/08/18] Pantoprazole Sodium [Protonix] 40 mg PO DAILY 03/10/17 [History Confirmed 05/08/18] Pravastatin Sodium 40 mg PO DAILY 03/10/17 [History Confirmed 05/08/18] Ergocalciferol [Vitamin D] 50,000 unit PO Q7D cap 07/08/17 [Rx Confirmed 05/08/18] Insulin Detemir [Levemir FlexPen] 30 units SC BID 07/25/17 [History Confirmed 05/08/18] clopidogrel 75 mg tablet 75 mg PO DAILY #90 tab 11/25/17 [Rx Confirmed 05/08/18] qnvkte-nyuxlpot-lgzskyo 24,000-76,000-120,000 unit capsule,delayed rel 1 cap PO QAC cap 01/30/18 [History Confirmed 05/08/18] amlodipine 5 mg tablet 5 mg PO DAILY tab 05/05/18 [History Confirmed 05/08/18] isosorbide mononitrate ER 30 mg tablet,extended release 24 hr 60 mg PO BID tab 05/05/18 [History Confirmed 05/08/18] allopurinol 100 mg tablet 100 mg PO DAILY 05/08/18 [History Confirmed 05/08/18] carvedilol 12.5 mg tablet 12.5 mg PO BID #180 tab 05/08/18 [Rx Confirmed 05/08/18] hydroxyzine HCl 50 mg tablet 25 mg PO TID-QID PRN tab 05/08/18 [History Confirmed 05/08/18] insulin aspart U- 100 100 unit/mL subcutaneous pen 12 unit SC TIDAC ml 05/08/18 [History] lisinopril 10 mg tablet 10 mg PO BID tab 05/08/18 [History Confirmed 05/08/18] quetiapine 50 mg tablet 100 mg PO QHS tab 05/08/18 [History Confirmed 05/08/18] [facility] Medical History History of CVA (cerebrovascular accident) (Chronic) Atherosclerotic heart disease of [place] coronary artery without angina pectoris (Chronic) Diabetes mellitus (Chronic) History of stroke (Chronic) Carotid artery disease (Chronic) Malnutrition (Chronic) Diabetes mellitus with polyneuropathy (Chronic) Peripheral vascular disease (Chronic) Hypertension (Chronic) Chronic pain (Chronic) Hyperlipidemia (Chronic) Coronary artery disease (Chronic) Hypothyroidism (Chronic) Iron deficiency anemia (Chronic) GERD (gastroesophageal reflux disease) (Chronic) Surgical History Stented coronary artery (Chronic 12/21/14) History of left heart catheterization (Chronic) History of coronary artery bypass graft (Chronic) Family History Mother , age 75 Cancer CVA (cerebral vascular accident) CAD (coronary artery disease) Father CAD (coronary artery disease) History of coronary artery bypass graft Sister CAD (coronary artery disease) Multiple sclerosis Social History Smoking Status: Never smoker alcohol intake: never substance use type: does not use caffeine: Yes Type: coffee what type of physical activity do you participate in: none seatbelt use: sometimes do you feel safe at home: Yes ROS Const Const: Positive for other (Has had trouble with HTN. Imdur doubled Mon., still up. Discuss bone tx ); negative for fatigue, body ache, fever(s), chills, night sweats, daytime sleepiness, difficulty sleeping, excessive sweating, weight gain, weight loss, increased appetite, poor appetite, anorexia, frequent falls, headache(s) or weakness Eyes Eyes: Negative for blind spots, loss of peripheral vision, transient loss of vision, change in vision, floaters, tunnel vision, other, blurry vision or double vision ENT ENT: Negative for hearing loss, tinnitus, Nosebleed/epistaxis, balance problems, post nasal drip, lip swelling, tongue swelling, bleeding gums, hoarseness, neck pain, dry mouth, other, dizziness or headache(s) Cardio Chest Pain: No Palpitations: No Edema: Left (Charcot disease in left foot, wearing brace. Rt foot amputated for osteomyelitis) Muscle aches with walking: Left Resp Respiratory: Negative for SOB with activity, SOB at rest, SOB orthopnea\SOB lying down, Cough, Coughing up blood/hemoptysis, chest congestion, pain on inspiration, snoring, stridor, wheezing, crackles, paroxysmal nocturnal dyspnea or other GI GI: Negative nausea, vomiting, heartburn, constipation, belching, bloating, cramping, vomiting blood/hematemesis, bright, red blood in stools, black,tarry stools, loose stools, Difficulty Swallowing or other : Negative for hematuria, frequent nighttime urination/ nocturia, erectile dysfunction or abnormal vaginal bleeding Musc Musc: Negative for balance problems, muscle aches/ myalgia, muscle weakness or joint pain Skin Skin: Negative redness, non-healing lesions, rash, unusual bruising, skin ulcer, wounds, jaundice or other Neuro Neuro: Positive for lightheadedness (Occasional); negative for dizziness, near syncope, syncope, orthostatic symptoms, frequent falls, headache(s), weakness, confusion, memory loss, restless legs, blurry vision, double vision, vertigo, seizures, lack of coordination or other [place] Hematologic/Lymphatic: Negative for easy bleeding, easy bruising, enlarged lymph nodes or other Endo Endo: Negative for fatigue, excessive sweating, cold intolerance, heat intolerance, flushing, increased thirst/drinking, increased hunger, hair loss, hair growth or other Psych Psych: Negative for anxiety, depression, thoughts of harming anyone, thoughts of harming yourself, visual hallucinations, panic attacks or audible hallucinations Allergy Allergy/Immunology: Negative for lip swelling, Negative for tongue swelling, Negative for rash, Negative for throat swelling, Negative for hives Cardiology Exam Const Appearance: cooperative, healthy appearing and no acute distress Nutritional Appearance: well nourished Orientation: alert, oriented x3 and oriented to person Head Head: normal to inspection, atraumatic and normocephalic Nose: external nose normal Face and Sinus: face symmetric Mouth: oral mucosae normal Eyes General: appearance normal, both eyes and all related structures Eyelids: eyelids normal Conjunctivae: conjunctivae normal Pupils: PERRL and normal by confrontation EOM: EOM intact bilaterally Neck Neck: normal visual inspection and full ROM Carotids: normal carotid upstroke Chest Chest inspection: normal inspection of the chest Auscultation: Bilateral: Clear to Auscultation Cardio Palpation: normal PMI Rate: regular rate Rhythm: regular rhythm Heart sounds: S1 normal and S2 normal GI GI: normal to inspection, no hepatosplenomegaly and bowel sounds present Neuro General: alert, oriented x3, awake, CN's II-XI intact bilaterally and moves all extremities Skin Skin: no rashes or lesions noted Extremities Pulses: Normal: Right Femoral Pulse, Left Femoral Pulse, Right Dorsalis Pedis Pulse, Left Dorsalis Pedis Pulse, Right Posterior Tibial Pulse, Left Posterior Tibial Pulse, Right Radial Pulse, Left Radial Pulse Lower Extremity Edema: None: Bilateral Psych Psychological: normal affect Assessment AND Plan 1. Atherosclerosis of [place] coronary artery of [place] heart without angina pectoris I25.10 CABG X 3 vessels [facility]: DANIEL to LAD, reverse SVG to dx and to 2nd OM per Dr. Borjas @ [facility] 09/09/2014; PTCA/YASIR to Left main, LAD, and OM1 per Dr. Hatfield 12/21/2014; Plan 1. Coronary artery disease: No exertional anginal symptoms at this time. Her most recent stress test was negative for inducible ischemia. I believe it is reasonably safe for the patient undergo IV infusion for her rheumatological issues tomorrow. I would recommend discontinuation of her metoprolol as she is on both metoprolol and Coreg for some reason. She will continue baby aspirin, Plavix, and we will increase her Coreg to 12.5 mill grams p.o. twice daily and continue her Imdur and lisinopril. She will return in 2 weeks time for a blood pressure check. If her blood pressure is not optimized I would recommend increasing her lisinopril to a maximum of 40 mg daily. Orders Orders: 2. Mixed hyperlipidemia E78.2 Plan 2. Hyperlipidemia: Recommend repeat lipid profile in 6 weeks time. If her LDL is not less than 100 would recommend switching her from Pravachol to Crestor. 3. Essential hypertension I10 Plan 3. Hypertension: I have asked the patient to continue to take her blood pressures at home, and we will increase her Coreg to 12.5 mill grams p.o. twice daily, discontinue her metoprolol, continue Imdur and lisinopril. I am hesitant to place her on a diuretic as she has difficulty getting around given her rheumatological issues. Patient may benefit from low-dose diuretic therapy. 4. Return office in 6 months. This note was generated using a voice recognition system and there may be incorrect words, spelling or punctuation that were not noted when reviewing the office note prior to saving. Plan Detail Other Orders Orders: Other Medications New: carvedilol (Coreg) must administer with a12.5 mg PO BID 180 tabs 3RF Claus Hatfield MD meal/food Discontinued: promethazine Discontinued Reason: Pt no l25 mg PO Q6H PRN PRN 28 tabs 0RF NAUSEA/VOMI onger taking TING Follow Up +6M (Liu) Coding Level of Care Code Off vis,est,level 3 Diagnoses Atherosclerosis of [place] coronary artery of [place] heart without angina pectoris I25.10 [place] vs. transplanted heart: [place] heart Mixed hyperlipidemia E78.2 Hyperlipidemia type: mixed hyperlipidemia Essential hypertension I10 Hypertension type: essential hypertension Coding Level of Care Code Off vis,est,level 3 Diagnoses Atherosclerosis of [place] coronary artery of [place] heart without angina pectoris I25.10 [place] vs. transplanted heart: [place] heart Mixed hyperlipidemia E78.2 Hyperlipidemia type: mixed hyperlipidemia Essential hypertension I10 Hypertension type: essential hypertension 05/08/18 1353 <Electronically signed by Claus Hatfield MD> Date Claus Hatfield MD Cosigner Signature: Date (if applicable) CC: Con Johnson MD CBC W/DIFF, AUTOMATED Collected: 05/01/2018 Status: F Source: [place] 2:[address] [facility] REPOSITORY TYPE CODE TESTS RESULT OUT OF RANGE REFERENCE UNITS LAB L100.1000 4.4-11.0 K/mm3 Normal WBC 9.8 LAB L100.1200 4.2-5.4 M/mm3 Normal RBC 4.76 LAB L100.1300 12.0-15.0 g/dl Normal HGB 12.1 LAB L100.1400 37-47 % Normal HCT 38.1 LAB L100.1500 81-99 fL Low MCV 80.0 LAB L100.1600 27.0-32.0 pg Low MCH 25.4 LAB L100.1700 32-36 g/gl Low MCHC 31.8 LAB L100.1810 11.6-14.6 % High RDW CV 16.8 LAB L100.1820 35.1-43.9 fl High RDW SD 47.8 LAB L100.1900 150-450 K/mm3 Normal PLT 254 LAB L100.2000 6.2-12.0 fl Normal MPV 10.5 LAB L100.2100 47-70 % High NEUT% 76.9 LAB L100.2200 19-41 % Low LY% 11.9 LAB L100.2300 0-10 % Normal MONO% 9.2 LAB L100.2400 0-5 % Normal EO% 1.7 LAB L100.2500 0-1 % Normal BASO% 0.1 LAB L100.2550 0.0-0.9 % Normal IM GRAN % 0.200 Result Comment: IG% - Immature Granulocytes (promyelocytes, myelocytes and metamyelocytes) > 1% indicates that a LEFT SHIFT is Present. LAB L100.2620 2.0-7.7 X10 3/uL Normal Absolute Neut 7.5 LAB L100.2720 0.83-4.51 X10 3/ul Normal Absolute Lymph 1.17 Performed By: #### L100.0100, L101.9900 #### [facility] [address] [place], [place], [address] ERYTHROCYTE SED RATE Collected: 05/01/2018 Status: F Source: [place] 2:[address] [facility] REPOSITORY TYPE CODE TESTS RESULT OUT OF RANGE REFERENCE UNITS LAB L102.0000 0-30 mm/hr Insufficient Normal SED quant. RATE Result Comment: SED RATE PORTION WILL NEED REDRAWN BETTE ANNABEL IS TAKING CARE OF THIS FOR US. MAF 12-6-18 AT 1558PM. Performed By: #### L100.0100, L101.9900 #### [facility] [address] [place], [address] CRP Collected: 05/01/2018 Status: F Source: [place] 2:[address] [facility] REPOSITORY TYPE CODE TESTS RESULT OUT OF RANGE REFERENCE UNITS LAB L501.6710 0.0-3.0 mg/L High 22.30 C-REACTIVE PROT Result Comment: C-Reactive Protein (CRP) provides useful information for the diagnosis, therapy and monitoring of inflammatory processes and associated diseases. For the evaluation of Relative Risk for Cardiovascular Disease, a High Sensitivity CRP (HSCRP) should be ordered. Performed By: #### L501.6710 #### [facility] [address] [place], [address] VITAMIN D,25 HYDROXY Collected: 05/01/2018 Status: F Source: [place] 2:[address] [facility] REPOSITORY TYPE CODE TESTS RESULT OUT OF REFERENCE UNITS RANGE LAB L506.1000 29.95-100.01 ng/mL Low Vitamin D 15.7 25-OH Result Comment: Vitamin D 25(OH) Status Range Deficiency <20 ng/mL (50nmol/L) Insuffciency 20 - 30 ng/mL (50 - 75 nmol/L) Sufficiency 30 - 100 ng/mL (75 - 250 nmol/L) Toxicity >100 ng/mL (>250 nmol/L) Performed By: #### L506.1000 #### [facility] [address] [place], [address] ERYTHROCYTE SED RATE Collected: 04/02/2018 Status: F Source: [place] 11:[address] [facility] REPOSITORY TYPE CODE TESTS RESULT OUT OF RANGE REFERENCE UNITS LAB L102.0000 0-30 mm/hr High SED RATE 38 Performed By: #### L101.9900, L100.0100 #### [facility] [address] [place], [address] CBC W/DIFF, AUTOMATED Collected: 04/02/2018 Status: F Source: [place] 11:[address] [facility] REPOSITORY TYPE CODE TESTS RESULT OUT OF RANGE REFERENCE UNITS LAB L100.1000 4.4-11.0 K/mm3 High WBC 14.0 LAB L100.1200 4.2-5.4 M/mm3 Normal RBC 5.05 LAB L100.1300 12.0-15.0 g/dl Normal HGB 12.6 LAB L100.1400 37-47 % Normal HCT 40.2 LAB L100.1500 81-99 fL Low MCV 79.6 LAB L100.1600 27.0-32.0 pg Low MCH 25.0 LAB L100.1700 32-36 g/gl Low MCHC 31.3 LAB L100.1810 11.6-14.6 % High RDW CV 16.8 LAB L100.1820 35.1-43.9 fl High RDW SD 48.2 LAB L100.1900 150-450 K/mm3 Normal PLT 251 LAB L100.2000 6.2-12.0 fl Normal MPV 10.0 LAB L100.2100 47-70 % High NEUT% 80.0 LAB L100.2200 19-41 % Low LY% 11.5 LAB L100.2300 0-10 % Normal MONO% 7.9 LAB L100.2400 0-5 % Normal EO% 0.4 LAB L100.2500 0-1 % Normal BASO% 0.1 LAB L100.2550 0.0-0.9 % Normal IM GRAN % 0.100 Result Comment: IG% - Immature Granulocytes (promyelocytes, myelocytes and metamyelocytes) > 1% indicates that a LEFT SHIFT is Present. LAB L100.2620 2.0-7.7 X10 3/uL High Absolute Neut 11.2 LAB L100.2720 0.83-4.51 X10 3/ul Normal Absolute Lymph 1.61 Performed By: #### L101.9900, L100.0100 #### [facility] [address] [place], [address] COMPREHENSIVE METABOLIC Collected: 04/02/2018 Status: F Source: [place] [facility] 11:[address] [facility] REPOSITORY TYPE CODE TESTS RESULT OUT OF RANGE REFERENCE UNITS LAB L501.0100 74-106 mg/dL Normal GLU 79 Result Comment: Please note revised GLUCOSE reference range effective 2017. LAB L501.1000 7-18 mg/dL High BUN 36 LAB L501.1100 0.55-1.02 mg/dL High CREAT,SERUM 1.51 Result Comment: The validity of the calculated GFR AND GFRAA in patients over 70 years has not been determined. Clinical correlation is essential. LAB L501.1110 >60 mL/min Low EST GFR 36 Result Comment: Non- GFR Calc LAB L501.1115 >60 mL/min Low EST GFR - AA 44 Result Comment: GFR Calc LAB L501.1300 10-20 RATIO High BUN/CRE 23.8 LAB L501.1500 6.4-8.2 g/dL T Normal PROT 7.6 LAB L501.1800 3.2-5.0 g/dL Normal ALB 3.4 LAB L501.1950 2.2-4.2 g/dL Normal GLOB 4.2 LAB L501.2000 0.9-2.4 RATIO Low A/G 0.8 LAB L501.2200 8.5-10.1 mg/dL CA Normal 9.3 LAB L501.4100 15-37 U/L Low AST 12 LAB L501.4305 45-117 U/L Normal ALK P 98 LAB L501.4405 13-56 U/L Normal ALT 16 LAB L501.4600 0.20-1.00 mg/dL T Normal BILI 0.40 LAB L501.5300 136-145 mmol/L NA Normal 138 LAB L501.5600 3.5-5.1 mmol/L K Normal 5.1 LAB L501.5900 98-107 mmol/L CL Normal 101 LAB L501.6100 21.0-32.0 mmol/L Normal CO2 29.0 LAB L501.6200 5-15 Normal GAP 8 Performed By: #### L500.4050, L501.1400, L501.6710 #### [facility] [address] [place], [address] URIC ACID Collected: 04/02/2018 Status: F Source: [place] 11:[address] [facility] REPOSITORY TYPE CODE TESTS RESULT OUT OF RANGE REFERENCE UNITS LAB L501.1400 2.6-6.0 mg/dL High URIC 6.2 Result Comment: The drugs N-Acetylcysteine and Metamizole may falsely depress this assay. Performed By: #### L500.4050, L501.1400, L501.6710 #### [facility] [address] [place], [address] CRP Collected: 04/02/2018 Status: F Source: [place] 11:[address] [facility] REPOSITORY TYPE CODE TESTS RESULT OUT OF RANGE REFERENCE UNITS LAB L501.6710 0.0-3.0 mg/L High 58.90 C-REACTIVE PROT Result Comment: C-Reactive Protein (CRP) provides useful information for the diagnosis, therapy and monitoring of inflammatory processes and associated diseases. For the evaluation of Relative Risk for Cardiovascular Disease, a High Sensitivity CRP (HSCRP) should be ordered. Performed By: #### L500.4050, L501.1400, L501.6710 #### [facility] [address] [facility] [place], [address] FOOT MIN 3 VIEWS Observed: 04/02/2018 Status: F Source: [place] 11:[address] [facility] REPOSITORY [facility] Imaging Services [address] [place] [address] Foot min 3 Views MR#: [id number] Acct: [id number] Name: LISA SEAY Rep #: [id number] : 1945 F 72 From: Miah Brown MD PCP: Con Johnson MD Status: REG CLI Study: Foot min 3 Views Date of Exam: 04/02/18 Exam# [id number] Ordering Dr: Con Johnson MD STUDY: X-RAY - RIGHT FOOT CLINICAL: Female, 72 years old. Pain and redness and warmth right foot. History of gout. TECHNIQUE: 3 view(s) of the foot. COMPARISON: None. FINDINGS: Normal talus, calcaneus, and tarsal bones. Normal visualized subtalar, talonavicular, calcaneocuboid, tarsal and tarsometatarsal articulations. Normal metatarsi. Normal metatarsophalangeal joint of the great toe. Normal tibial and fibular sesamoid bones. Normal interphalangeal joint of the great toe. Normal phalanges of the great toe. Normal second through fifth metatarsophalangeal joints. Normal interphalangeal joints and phalanges of the lesser toes. The soft tissue structures are unremarkable. RAD/Foot min 3 Views IMPRESSION: Normal x-ray examination of the foot. Electronically Signed: Miah Brown MD at 16:42 EST , Service support , CC: Con Johnson MD Electrical Software Engineer: Signed OT GENERAL EVALUATION Observed: 03/17/2018 Status: F Source: [place] 9:[address] [facility] REPOSITORY [facility] Occup[facility] 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 Date of Evaluation: 03/10/18 Occupational Therapist: Melissa Sorensen - Subjective Subjective: Arrived for OT evaluation. Noted that she has numbness and tingling in hands and noted this has been going on for a year. Noted neuropathy in feet and hands. Notes pain is at its worse at night and wears wrist cock up braces B hands. She had CABG about 3 years ago and has recently had forefoot amputated of May this year. Has PMHx of DM- type 1 per Pt. report. - Pain Bilateral Hand 3 Pain Intensity Range: 2, 9 - ROM Shoulder: WFL Elbow: WFL Forearm: WFL Wrist: WFL MP: WFL PIP: WFL DIP: WFL ROM Comments: ROM is WFL . - Strength Childcare Administrator: R 32, L 28 lbs Lateral Pinch: R 11, L 8 lbs Tripod Pinch: R 8, L 7 lbs Tip-to-Tip Pinch: R 5, L 4 lbs Intrinsics: between 2nd and 3rd R 4/5, L 4-/5; between 3rd and 4thR 4/5, L 4-/5; Strength Comments: intrinsic 4th and 5th R 4/5, L 4-/5; - Edema Other: none noted at this time. - Sensation Thumb: R 3.22, L 3.22 Index: R 3.22, L 3.22 Middle: R 3.22, L 4.08 Ring: R 2.83, L 2.83 Little: R 2.83, L 2.83 Kinesthesia: Normal - Right, Normal - Left - Nine Hole Peg Right: 22.30 s Left: 23.76 s - In-Hand Manipulation Finger to Palm Translation: Mild - Right, Moderate - Right, Mild - Left Palm to Finger Translation: Mild - Right, Mild - Left Shift: Moderate - Right, Moderate - Left Rotation: Mild - Right, Normal - Left - Special Tests Phalen's (Carpal Tunnel): Negative- no changes noted by Pt. Tinel's: Negative- no changes noted by Pt. Median Nerve Compression Test: Postive - DASH-Disabilities of Arm, Shoulder AND Hand DASH Sum: 87 - Hand/Wrist Evaluation Total Score of Pain AND Functional Sections: 45 - Goals Goal:: Pt. to increase galley boy by 15-20 lbs to promote increased ability to manipulate self care tasks by d/c. Goal:: Pt. to use sensory compensations to promote increased ability to manipulate self care tasks as shown through decreased time of 9 hole pegbaoird test by d/c. Goal:: Pt. to be (I) to complete sensory compensations and adaptations to promote increased (I) with ADl/IADls to promote to returning to PLOF by d/c . Goal:: Pt. to be mod I to return to PLOF for all ADL/IADLS including buttoning tasks 4/5 trials 805 of the time to promote (i) and ability to return to PLOF by d/c. Goal:: Pt. to be mod I to complete HEP and sensory compensations to promote increased (I) 4/5 trials 80% of the time to increased returning to pLOF and promote QOL by d/c. - Rehabilitation General Assessment: Evaluation completed on this date of 03/10/18. Lisa has h/o of neuropathy and reports having DM type 1. She has increased neuropathy in B feet with R foot having increased symptoms from forefoot amputation. ROM and strength of hands are decreased. Sensation of B hands show slight signs of decreased light touch and protective reflexes through monofilament testing. Will complete training in sensory deficits and strengthening to promote increased ability to manipulate self-care tasks by d/c. Rehabilitation Potential: Good - Anticipated Interventions Anticipated Interventions: A/AAROM/PROM, Strengthening, Joint Protection/Energy Conservation, Ergonomic Education, Fine Motor Coord/Tom, Neuro Reeducation, ADL Training, Education re assistive Equipment, Caregiver Training, Home Program - Visit Plan Frequency: 2x /Week Duration: 4 Weeks General Plan: OT to provided median nerve glides, ROm, and strengthening exercises as well as adaptation and compensations for sensory related deficits. TEXT: Thank you for the opportunity to evaluate your patient. For Medicare and Medicare HMO plans, please review the plan of care and approve it. It will need to be FAXED BACK to us at [phone] for Medicare purposes. Please let me know if there are questions or concerns regarding this plan of care. Physician Signature: Date: <Electronically signed by Melissa Sorensen > 03/17/18 0946 CC: Con Johnson MD DERICK Signed For Medicare only, by signing this I certify the plan of care. Physicians Signature Date CARDIOLOGY VISIT Observed: 01/30/2018 Status: F Source: [place] REPORT 3:[address] [facility] REPOSITORY [facility] [address] [place] [address] OFFICE VISIT Date of Service: 01/30/18 MR#: [id number] Acct: [id number] Name: LISA SEAY Rep #: [id number] : 1945 Provider: Claus Hatfield MD Age/Sex: 72/F Location: [facility] Status: Signed HPI HPI Chief Complaint: Routine f/u Details: LISA ESAY, is a 72 F who presents to the office today for a cardiovascular outpatient follow-up. Patient has a history of coronary artery disease status post bypass surgery in August 2014 with a DANIEL to LAD, SVG to diagonal, and SVG to OM #2. She also has a history of drug-eluting stenting to left main, LAD, and OM1 in November 2014, hypertension, hyperlipidemia, type 2 diabetes, palpitation, neck fusion, and gastric bypass. 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 Patient states that she was doing well up until the last month or so when she went to the [facility] and developed exertional substernal chest pressure and pain. She did not take any nitroglycerin tablets, and her pain actually got worse when she rested. Upon her return she underwent a dobutamine echocardiogram on 01/13/18 which was negative for inducible ischemia. Since then she has had a couple of episodes of left upper arm pain and shoulder pain with exertion which is relieved with sublingual nitroglycerin. She has not had a repeat catheterization since her bypass surgery in 2014. Her blood pressures at home range between 120 and 180 systolic, and there appears to be some correlation with her chest pain and her hypertension episodes. In our office today her blood pressure is 120/50, pulse is 68 and regular. Physical exam is as below. She has no reproducible chest pain or left arm pain. Lipids are pending. Intake Vital Signs01/30/18 Height 5 ft 3 in 01/30/18 Weight: 190 lb 01/30/18 Body Mass Index (BMI) 33.6 01/30/18 Blood Pressure 120/50 Intake Visit Reasons: 6 M FU Allergies Penicillins Allergy (Severe, Verified 01/30/18 15:30) Unknown atorvastatin calcium [From Lipitor] Allergy (Verified 01/30/18 15:30) Unknown bupropion HCl [From Wellbutrin] Allergy (Verified 01/30/18 15:30) Unknown mannitol [From Reclast] Allergy (Verified 01/30/18 15:30) joint pain, unable to breathe, unable to walk propoxyphene napsylate [From Darvocet-N 100] Allergy (Verified 01/30/18 15:30) Unknown Quinolones Allergy (Verified 01/30/18 15:30) Unknown Tetanus Vaccines and Toxoid [Tetanus Vaccines AND Toxoid] Allergy (Verified 01/30/18 15:30) Chest tightness tizanidine Allergy (Verified 01/30/18 15:30) Unknown zoledronic acid [From Reclast] Allergy (Verified 01/30/18 15:30) joint pain,unable to breathe, unaable to walk pravastatin Adverse Reaction (Severe, Verified 01/30/18 15:30) Myalgias gemfibrozil Adverse Reaction (Intermediate, Verified 01/30/18 15:30) Unknown NSAIDS (Non-Steroidal Anti-Inflamma Adverse Reaction (Verified 01/30/18 15:30) Other Medications Aspirin [Aspirin, Baby] 81 mg PO DAILY@0800 03/10/17 [History Confirmed 01/30/18] Levothyroxine Sodium [Levoxyl] 75 mcg PO QHS 03/10/17 [History Confirmed 01/30/18] Metoprolol Tartrate [Lopressor (beta fina)] 50 mg PO BID 03/10/17 [History Confirmed 01/30/18] Nitroglycerin [Nitrostat] 0.4 mg SUBLINGUAL Q5M PRN 03/10/17 [History Confirmed 01/30/18] Pantoprazole Sodium [Protonix] 40 mg PO DAILY 03/10/17 [History Confirmed 01/30/18] Pravastatin Sodium 40 mg PO DAILY 03/10/17 [History Confirmed 01/30/18] isosorbide mononitrate ER 30 mg tablet,extended release 24 hr 30 mg PO BID tab 01/12/18 [History Confirmed 01/30/18] Amlodipine Besylate [Norvasc] 5 mg PO QHS 06/11/17 [History Confirmed 01/30/18] Ergocalciferol [Vitamin D] 50,000 unit PO Q7D cap 07/08/17 [Rx Confirmed 01/30/18] Insulin Aspart [Novolog Flexpen] 16 units SC TIDAC flexpen 07/08/17 [Rx Confirmed 01/30/18] Nutritional Supplement [Blue - ORANGE FLAVOR] 1 packet PO BIDCM #60 packet 07/08/17 [Rx Confirmed 01/30/18] proMETHazine tablet [Phenergan tablet] 25 mg PO Q6H PRN PRN #28 tab 07/08/17 [Rx Confirmed 01/30/18] Insulin Detemir [Levemir FlexPen] 30 units SC BID 07/25/17 [History Confirmed 01/30/18] Hydroxyzine HCl 30 mg PO Q8H PRN PRN 09/21/17 [History Confirmed 01/30/18] Melatonin 2 tab PO QHS 09/21/17 [History Confirmed 01/30/18] Sertraline HCl [Zoloft] 50 mg PO DAILY 09/21/17 [History Confirmed 01/30/18] clopidogrel 75 mg tablet 75 mg PO DAILY #90 tab 11/25/17 [Rx Confirmed 01/30/18] alendronate 40 mg tablet 40 mg PO DAILY 01/30/18 [History Confirmed 01/30/18] diclofenac 1 % topical gel 2 g TOPICAL ONCE 01/30/18 [History Confirmed 01/30/18] guaifenesin 400 mg tablet 400 mg PO .q 8 hours PRN tab 01/30/18 [History Confirmed 01/30/18] lidocaine 5 % topical patch 1 patch TOPICAL DAILY 01/30/18 [History Confirmed 01/30/18] etvsli-ctzzywnz-iujxbvw 24,000-76,000-120,000 unit capsule,delayed rel 1 cap PO QAC cap 01/30/18 [History Confirmed 01/30/18] mirtazapine 45 mg tablet 45 mg PO QHS tab 01/30/18 [History Confirmed 01/30/18] [facility] Medical History History of CVA (cerebrovascular accident) (Chronic) Atherosclerotic heart disease of [place] coronary artery without angina pectoris (Chronic) Diabetes mellitus (Chronic) History of stroke (Chronic) Carotid artery disease (Chronic) Malnutrition (Chronic) Diabetes mellitus with polyneuropathy (Chronic) Peripheral vascular disease (Chronic) Hypertension (Chronic) Chronic pain (Chronic) Hyperlipidemia (Chronic) Coronary artery disease (Chronic) Hypothyroidism (Chronic) Iron deficiency anemia (Chronic) GERD (gastroesophageal reflux disease) (Chronic) Surgical History Stented coronary artery (Chronic 12/21/14) History of left heart catheterization (Chronic) History of coronary artery bypass graft (Chronic) Family History Mother , age 75 Cancer CVA (cerebral vascular accident) CAD (coronary artery disease) Father CAD (coronary artery disease) History of coronary artery bypass graft Sister CAD (coronary artery disease) Multiple sclerosis Social History Smoking Status: Never smoker alcohol intake: never substance use type: does not use caffeine: Yes Type: coffee what type of physical activity do you participate in: none seatbelt use: sometimes do you feel safe at home: Yes ROS Const Const: Negative for fatigue, weakness, body ache, fever(s), headache(s), chills, frequent falls, night sweats, daytime sleepiness, difficulty sleeping, excessive sweating, weight gain, weight loss, increased appetite, poor appetite, anorexia or other Eyes Eyes: Negative for blind spots, loss of peripheral vision, transient loss of vision, blurry vision, change in vision, double vision, floaters, tunnel vision or other ENT ENT: Negative for headache(s), dizziness, hearing loss, tinnitus, Nosebleed/epistaxis, balance problems, post nasal drip, lip swelling, tongue swelling, bleeding gums, hoarseness, neck pain, dry mouth or other Cardio Chest Pain: No (was having them but none for past 2 weeks) Resp Respiratory: Positive for SOB with activity; negative for SOB at rest, SOB orthopnea\SOB lying down, Cough, Coughing up blood/hemoptysis, chest congestion, pain on inspiration, snoring, stridor, wheezing, crackles, paroxysmal nocturnal dyspnea or other GI GI: Negative nausea, vomiting, heartburn, constipation, belching, bloating, cramping, vomiting blood/hematemesis, bright, red blood in stools, black,tarry stools, loose stools, Difficulty Swallowing or other : Negative for hematuria, frequent nighttime urination/ nocturia, erectile dysfunction or abnormal vaginal bleeding Musc Musc: Negative for balance problems, muscle aches/ myalgia, muscle weakness or joint pain Skin Skin: Negative redness, non-healing lesions, rash, unusual bruising, skin ulcer, wounds, jaundice or other Neuro Neuro: Negative for weakness, headache(s), frequent falls, blurry vision, double vision, dizziness, lightheadedness, near syncope, syncope, orthostatic symptoms, confusion, memory loss, restless legs, vertigo, seizures, lack of coordination or other [place] Hematologic/Lymphatic: Negative for easy bleeding, easy bruising, enlarged lymph nodes or other Endo Endo: Negative for fatigue, excessive sweating, cold intolerance, heat intolerance, flushing, increased thirst/drinking, increased hunger, hair loss, hair growth or other Psych Psych: Negative for anxiety, depression, thoughts of harming anyone, thoughts of harming yourself, visual hallucinations, panic attacks or audible hallucinations Allergy Allergy/Immunology: Negative for lip swelling, Negative for tongue swelling, Negative for rash, Negative for throat swelling, Negative for hives Cardiology Exam Const Appearance: cooperative, healthy appearing and no acute distress Nutritional Appearance: well nourished Orientation: alert, oriented x3 and oriented to person Head Head: normal to inspection, atraumatic and normocephalic Nose: external nose normal Face and Sinus: face symmetric Mouth: oral mucosae normal Eyes General: appearance normal, both eyes and all related structures Eyelids: eyelids normal Conjunctivae: conjunctivae normal Pupils: PERRL and normal by confrontation EOM: EOM intact bilaterally Neck Neck: normal visual inspection and full ROM Carotids: normal carotid upstroke Chest Chest inspection: normal inspection of the chest Auscultation: Bilateral: Clear to Auscultation Cardio Palpation: normal PMI Rate: regular rate Rhythm: regular rhythm Heart sounds: S1 normal and S2 normal GI GI: normal to inspection, no hepatosplenomegaly and bowel sounds present Neuro General: alert, oriented x3, awake, CN's II-XI intact bilaterally and moves all extremities Skin Skin: no rashes or lesions noted Extremities Pulses: Normal: Right Femoral Pulse, Left Femoral Pulse, Right Dorsalis Pedis Pulse, Left Dorsalis Pedis Pulse, Right Posterior Tibial Pulse, Left Posterior Tibial Pulse, Right Radial Pulse, Left Radial Pulse Lower Extremity Edema: None: Bilateral Psych Psychological: normal affect Assessment AND Plan 1. Atherosclerosis of [place] coronary artery of [place] heart without angina pectoris I25.10 CABG X 3 vessels [facility]: DANIEL to LAD, reverse SVG to dx and to 2nd OM per Dr. Borjas @ [facility] 09/09/2014; PTCA/YASIR to Left main, LAD, and OM1 per Dr. Hatfield 12/21/2014; Plan 1. Coronary artery disease: The patient appears to have hypertension induced anginal symptoms, as well as chest pain with exerting herself [place] high altitude in the [place] on vacation. Patient has known coronary disease and is status post multivessel bypass surgery in 2014. Her recent dobutamine echocardiogram was negative for inducible ischemia and had no anginal symptoms. It appears the patient's chest pain may be hypertension related, and to that end I recommend increasing her Imdur to 30 mill grams p.o. twice daily with a repeat blood pressure check in 2 weeks time. Her blood pressures at home range between 120 and 180. Recommend also that she continue her baby aspirin, Plavix, amlodipine, Imdur and metoprolol. She will return in 2 weeks time for a blood pressure check. If the patient's blood pressure is well controlled and she continues to have exertional chest pain I have a low threshold for repeat diagnostic coronary angiography with graft angiography as well. Orders Orders: 2. Mixed hyperlipidemia E78.2 Plan 2. Hyperlipidemia: Recommend obtaining a fasting lipid profile. Her LDL to less than 70. Continue Pravachol. 3. Return office in 3 months. This note was generated using a voice recognition system and there may be incorrect words, spelling or punctuation that were not noted when reviewing the office note prior to saving. Plan Detail Other Orders Orders: Other Medications New: Discontinued: Follow Up 3M (Liu) +2 weeks (BP CHECK) Coding Level of Care Code Off vis,est,level 3 Diagnoses Atherosclerosis of [place] coronary artery of [place] heart without angina pectoris I25.10 [place] vs. transplanted heart: [place] heart Mixed hyperlipidemia E78.2 Hyperlipidemia type: mixed hyperlipidemia Coding Level of Care Code Off vis,est,level 3 Diagnoses Atherosclerosis of [place] coronary artery of [place] heart without angina pectoris I25.10 [place] vs. transplanted heart: [place] heart Mixed hyperlipidemia E78.2 Hyperlipidemia type: mixed hyperlipidemia 01/30/18 1554 <Electronically signed by Claus Hatfield MD> Date Claus Hatfield MD Cosigner Signature: Date (if applicable) CC: Con Johnson MD CBC W/DIFF, AUTOMATED Collected: 01/15/2018 Status: F Source: [place] 2:[address] [facility] REPOSITORY TYPE CODE TESTS RESULT OUT OF RANGE REFERENCE UNITS LAB L100.1000 4.4-11.0 K/mm3 Normal WBC 7.6 LAB L100.1200 4.2-5.4 M/mm3 Normal RBC 4.85 LAB L100.1300 12.0-15.0 g/dl Normal HGB 12.0 LAB L100.1400 37-47 % Normal HCT 38.7 LAB L100.1500 81-99 fL Low MCV 79.8 LAB L100.1600 27.0-32.0 pg Low MCH 24.7 LAB L100.1700 32-36 g/gl Low MCHC 31.0 LAB L100.1810 11.6-14.6 % High RDW CV 15.3 LAB L100.1820 35.1-43.9 fl High RDW SD 44.1 LAB L100.1900 150-450 K/mm3 Normal PLT 245 LAB L100.2000 6.2-12.0 fl Normal MPV 10.3 LAB L100.2100 47-70 % High NEUT% 72.7 LAB L100.2200 19-41 % Normal LY% 20.5 LAB L100.2300 0-10 % Normal MONO% 4.9 LAB L100.2400 0-5 % Normal EO% 1.3 LAB L100.2500 0-1 % Normal BASO% 0.3 LAB L100.2550 0.0-0.9 % Normal IM GRAN % 0.300 Result Comment: IG% - Immature Granulocytes (promyelocytes, myelocytes and metamyelocytes) > 1% indicates that a LEFT SHIFT is Present. LAB L100.2620 2.0-7.7 X10 3/uL Normal Absolute Neut 5.5 LAB L100.2720 0.83-4.51 X10 3/ul Normal Absolute Lymph 1.55 Performed By: #### L100.0100, L101.9900 #### [facility] [address] [place], [place], [address] ERYTHROCYTE SED RATE Collected: 01/15/2018 Status: F Source: [place] 2:[address] [facility] REPOSITORY TYPE CODE TESTS RESULT OUT OF RANGE REFERENCE UNITS LAB L102.0000 0-30 mm/hr High SED RATE 37 Performed By: #### L100.0100, L101.9900 #### [facility] [address] [place], [place], [address] COMPREHENSIVE METABOLIC Collected: 01/15/2018 Status: F Source: [facility] 2:[address] [facility] REPOSITORY TYPE CODE TESTS RESULT OUT OF RANGE REFERENCE UNITS LAB L501.0100 74-106 mg/dL High GLU 355 Result Comment: Glucose result greater than or equal to 200 mg/dL suggests DIABETES MELLITUS per A.D.A. criteria. Please note revised GLUCOSE reference range effective 2017. LAB L501.1000 7-18 mg/dL High BUN 26 LAB L501.1100 0.55-1.02 mg/dL High CREAT,SERUM 1.53 Result Comment: The validity of the calculated GFR AND GFRAA in patients over 70 years has not been determined. Clinical correlation is essential. LAB L501.1110 >60 mL/min Low EST GFR 36 Result Comment: Non- GFR Calc LAB L501.1115 >60 mL/min Low EST GFR - AA 43 Result Comment: GFR Calc LAB L501.1300 10-20 RATIO Normal BUN/CRE 17.0 LAB L501.1500 6.4-8.2 g/dL T Normal PROT 7.7 LAB L501.1800 3.2-5.0 g/dL Normal ALB 3.4 LAB L501.1950 2.2-4.2 g/dL High GLOB 4.3 LAB L501.2000 0.9-2.4 RATIO Low A/G 0.8 LAB L501.2200 8.5-10.1 mg/dL CA Normal 8.7 LAB L501.4100 15-37 U/L Normal AST 18 LAB L501.4305 45-117 U/L High ALK P 140 LAB L501.4405 13-56 U/L Normal ALT 18 LAB L501.4600 0.20-1.00 mg/dL T Normal BILI 0.20 LAB L501.5300 136-145 mmol/L NA Normal 136 LAB L501.5600 3.5-5.1 mmol/L K Normal 4.7 LAB L501.5900 98-107 mmol/L CL Normal 101 LAB L501.6100 21.0-32.0 mmol/L Normal CO2 22.0 LAB L501.6200 5-15 Normal GAP 13 Performed By: #### L500.4050, L501.5200, L501.6710, L503.6550 #### [facility] [address] [place], [place], [address] MAGNESIUM Collected: 01/15/2018 Status: F Source: [place] 2:[address] [facility] REPOSITORY TYPE CODE TESTS RESULT OUT OF RANGE REFERENCE UNITS LAB L501.5200 1.6-2.6 mg/dL Normal MG 2.1 Performed By: #### L500.4050, L501.5200, L501.6710, L503.6550 #### [facility] [address] [place], [address] CRP Collected: 01/15/2018 Status: F Source: [place] 2:33 [facility] REPOSITORY TYPE CODE TESTS RESULT OUT OF RANGE REFERENCE UNITS LAB L501.6710 0.0-3.0 mg/L Normal < 2.90 C-REACTIVE PROT Result Comment: C-Reactive Protein (CRP) provides useful information for the diagnosis, therapy and monitoring of inflammatory processes and associated diseases. For the evaluation of Relative Risk for Cardiovascular Disease, a High Sensitivity CRP (HSCRP) should be ordered. Performed By: #### L500.4050, L501.5200, L501.6710, L503.6550 #### [facility] [address] [place], [address] FERRITIN Collected: 01/15/2018 Status: F Source: [place] 2:[address] [facility] REPOSITORY TYPE CODE TESTS RESULT OUT OF RANGE REFERENCE UNITS LAB L503.6550 8-252 ng/mL Normal FERRITIN 10 Performed By: #### L500.4050, L501.5200, L501.6710, L503.6550 #### [facility] [address] [place], [address] STRESS TEST ECHO W/ Observed: 01/15/2018 Status: F Source: [place] CONTRAST 10:[address] 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 Stress Echo Wall motion Data Resting WMIntermediate WMStress WM Resting Wall Motion Wall Motion Stress No regional wall motion No regional wall motion abnormalities noted. abnormalities noted. EKG Data Normal intervals are noted. The patient was titrated from 10 mcg to a maximum of 20 mcg of dobutamine during the stress. The maximum heart rate attained was 151 beats per minute. This was 100% of maximum predicted heart rate. During dobutamine infusion, there were no ST or T wave changes noted to suggest ischemia. No arrhythmias noted. No clinical angina was noted. Interpretation Summary The estimated ejection fraction is 65 %. The patient was titrated from 10 mcg to a maximum of 20 mcg of dobutamine during the stress. Normal, adequate, dobutamine echocardiogram. Negative for ischemia by EKG and echocardiographic criteria. No anginal symptoms noted. No arrhythmias noted. Appropriate blood pressure response to dobutamine. Final LVEF is 75%. Test terminated due to the attainment of target heart rate. No complications. Ordering Physician: Lars Wahl/Claus Hatfield Referring Physician: Con Johnson Performed By: Joyce Wahl, ISA, RVT 01/15/18 1003 Date Claus Hatfield MD CC: EVA Wahl; Con Johnson MD Date Dictated: 01/13/18 1251 Date Transcribed: 01/15/18 1003 Electrical Software Engineer: Signed Observed: 12/20/2017 Status: F Source: [place] ENTERIC PATHOGEN 3:[address] [facility] PANEL STOOL REPOSITORY PANEL STOOL Normal Reference Range = Not Detected Not detected for Campylobacter group, Salmonella species, Shigella species, Vibrio Group, Yersinia enterocolitica, EHEC (Shiga Toxin 1, Shiga Toxin 2), Norovirus Gl/Gll, and Rotavirus A. Other common stool pathogens are not detected on this panel include: Aeromonas/Plesiomonas or parasites. Order testing for these organisms separately if suspected. This is an amplified DNA test which makes it both specific and sensitive. CAMPYLOBACTER Not Detected Salmonella Not Detected Shigella sp. Not Detected Shiga Toxin Not Detected Yersinia Not Detected VIBRIO Not Detected Norovirus Not Detected Rotavirus Not Detected Performed By: #### M100.637 #### [facility] [address] [place], [place], [address] CBC W/DIFF, AUTOMATED Collected: 12/20/2017 Status: F Source: [place] 9:[address] [facility] REPOSITORY TYPE CODE TESTS RESULT OUT OF RANGE REFERENCE UNITS LAB L100.1000 4.4-11.0 K/mm3 Normal WBC 7.0 LAB L100.1200 4.2-5.4 M/mm3 Normal RBC 4.36 LAB L100.1300 12.0-15.0 g/dl Low HGB 10.7 LAB L100.1400 37-47 % Low HCT 35.3 LAB L100.1500 81-99 fL Normal MCV 81.0 LAB L100.1600 27.0-32.0 pg Low MCH 24.5 LAB L100.1700 32-36 g/gl Low MCHC 30.3 LAB L100.1810 11.6-14.6 % High RDW CV 16.7 LAB L100.1820 35.1-43.9 fl High RDW SD 49.6 LAB L100.1900 150-450 K/mm3 Normal PLT 200 LAB L100.2000 6.2-12.0 fl Normal MPV 9.6 LAB L100.2100 47-70 % Normal NEUT% 57.8 LAB L100.2200 19-41 % Normal LY% 28.0 LAB L100.2300 0-10 % Normal MONO% 9.4 LAB L100.2400 0-5 % Normal EO% 4.4 LAB L100.2500 0-1 % Normal BASO% 0.3 LAB L100.2550 0.0-0.9 % Normal IM GRAN % 0.100 Result Comment: IG% - Immature Granulocytes (promyelocytes, myelocytes and metamyelocytes) > 1% indicates that a LEFT SHIFT is Present. LAB L100.2620 2.0-7.7 X10 3/uL Normal Absolute Neut 4.0 LAB L100.2720 0.83-4.51 X10 3/ul Normal Absolute Lymph 1.96 Performed By: #### L100.0100 #### [facility] [address] [place], [address] COMPREHENSIVE METABOLIC Collected: 12/20/2017 Status: F Source: [place] 9:[address] [facility] REPOSITORY TYPE CODE TESTS RESULT OUT OF RANGE REFERENCE UNITS LAB L501.0100 74-106 mg/dL High GLU 267 Result Comment: Glucose result greater than or equal to 200 mg/dL suggests DIABETES MELLITUS per A.D.A. criteria. Please note revised GLUCOSE reference range effective 2017. LAB L501.1000 7-18 mg/dL High BUN 38 LAB L501.1100 0.55-1.02 mg/dL High CREAT,SERUM 1.71 Result Comment: The validity of the calculated GFR AND GFRAA in patients over 70 years has not been determined. Clinical correlation is essential. LAB L501.1110 >60 mL/min Low EST GFR 31 Result Comment: Non- GFR Calc LAB L501.1115 >60 mL/min Low EST GFR - AA 38 Result Comment: GFR Calc LAB L501.1300 10-20 RATIO High BUN/CRE 22.2 LAB L501.1500 6.4-8.2 g/dL T Normal PROT 7.6 LAB L501.1800 3.2-5.0 g/dL Low ALB 3.1 LAB L501.1950 2.2-4.2 g/dL High GLOB 4.5 LAB L501.2000 0.9-2.4 RATIO Low A/G 0.7 LAB L501.2200 8.5-10.1 mg/dL CA Normal 8.7 LAB L501.4100 15-37 U/L Normal AST 15 LAB L501.4305 45-117 U/L Normal ALK P 105 LAB L501.4405 13-56 U/L Normal ALT 22 LAB L501.4600 0.20-1.00 mg/dL T Normal BILI 0.30 LAB L501.5300 136-145 mmol/L NA Normal 139 LAB L501.5600 3.5-5.1 mmol/L K Normal 5.0 LAB L501.5900 98-107 mmol/L CL Normal 103 LAB L501.6100 21.0-32.0 mmol/L Normal CO2 26.0 LAB L501.6200 5-15 Normal GAP 10 Performed By: #### L500.4050, L501.2450, L501.5200 #### [facility] [address] [place], [address] LIPASE Collected: 12/20/2017 Status: F Source: [place] 9:[address] [facility] REPOSITORY TYPE CODE TESTS RESULT OUT OF REFERENCE UNITS RANGE LAB L501.2450 73-393 U/L Low LIPASE 36 Performed By: #### L500.4050, L501.2450, L501.5200 #### [facility] [address] [place], [address] MAGNESIUM Collected: 12/20/2017 Status: F Source: [place] 9:[address] [facility] REPOSITORY TYPE CODE TESTS RESULT OUT OF RANGE REFERENCE UNITS LAB L501.5200 1.6-2.6 mg/dL Normal MG 2.2 Performed By: #### L500.4050, L501.2450, L501.5200 #### [facility] [address] [place], [address] 12 LEAD ELECTROCARDIOGRAM Observed: 09/25/2017 Status: F Source: [place] 6:[address] [facility] REPOSITORY [facility] Cardiovascular Services [address] [place] [address] 12 Lead EKG 09/21/17 0859 MR#: [id number] Acct: [id number] Name: LISA SEAY Rep #: [id number] : 1945 72 From: Trenton Prescott MD Attending Dr: Status: DEP ER Ordering Dr: Bautista Salas DO Date: 09/21/17 Location: ED Sex: F C Admitted: Test Reason : DYSRHYTHMIA Blood Pressure : / mmHG Vent. Rate : 063 BPM Atrial Rate : 063 BPM P-R Int : 170 ms QRS Dur : 092 ms QT Int : 406 ms P-R-T Axes : 053 -21 095 degrees QTc Int : 415 ms Normal sinus rhythm with sinus arrhythmia Nonspecific T wave abnormality Abnormal ECG Confirmed by TRENTON PRESCOTT MD ([id number]), supervising editor news reel KRISTEN RUBI ([id number]) on 09/24/2017 1:59:21 PM Referred By: LIU Confirmed By:TRENTON PRESCOTT MD 09/24/17 1359 Date Trenton Prescott MD CC: Con Johnson MD; Bautista [place] EMERGENCY DEPARTMENT Observed: 09/21/2017 Status: F Source: [place] SUMMARY 2:[address] [facility] REPOSITORY [facility] Medical Records Department [address] [place] [address] Emergency Department Summary 09/21/17 0859 MR#: [id number] Acct: [id number] Name: LISA SEAY Rep #: [id number] : 1945 72 From: Bautista Dixon PCP: Con Johnson MD Status: REG ER - ER Visit Summary Date of Service: 09/21/17 Chief Complaint: Anxiety History of Present Illness: The patient is a 72 F patient referred in the ED by PCP office today. Patient states has been in contact with PCP daily this past week. Increasing stress this past week. States she had to throw her son out of the house due to being alcoholic. 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 On Saturday was seen by PCP, started on Zoloft and hydroxyzine. 2 days ago had the addition of Depakote. Also on Tuesdays saw psychology, Karrie Durán, and again seen yesterday with behavioral therapy. Patient states on Saturday while in a car with friends, had a panic attack, required stopping the car. She states she got out. She briefly thought about stepping out in front of a truck. No history of self injuries. Denies any tobacco, alcohol, or illicit drug use. No auditory visual hallucinations. No diagnosed anxiety or depression history. She states she did speak with crisis on Saturday. Decreased sleep, decreased appetite. No homicidal ideations. Past medical history: Coronary disease, diabetes, hypertension, hyper cholesterolemia, hypothyroid, peripheral artery disease, anemia.. Physical Examination: General: Alert and oriented 3, no acute distress HEENT: Normocephalic, atraumatic. Moist mucosa membranes Neck: supple, nontender. Cardiovascular: Regular rate and rhythm, no murmurs Respiratory: Normal breath sounds, symmetric, no distress Abdomen: Soft, nontender, nondistended Extremities: Nontender, no edema, pulses intact 4.Right lower extremity: Partial foot amputation, healing scar. Neuro: no focal neurological deficits. Psych: Flat affect, anxious Test Results: EKG: Sinus rate of 63, no ST changes. T-wave inversion in aVL. CBC white count 8.9. Hemoglobin 13. Creatinine 1.55. Glucose 319. Anion gap 7. Liver enzymes normal. Tox screen positive for opiates. Alcohol negative. Depakote 24. TSH 1.28. UA leukocytes 500, white blood cell count 5-10. Urine culture pending. Emergency Department Course and Treatment: Patient presents anxiety depression with suicidal thoughts 4 days ago. Patient cooperative. EKG chronic changes compared to previous. She was given Ativan p.o. to help with symptoms. Medical clearance labs obtained. Tox noted opiates however she is on morphine tabs. Urine noted leukocytes and white blood cell counts. We discussion with the patient states she has decreased urine output along with malodorous urine. Urine culture sent. She will be placed on Keflex. States she recently was placed on amoxicillin, told likely not having a penicillin allergy. Depakote subtherapeutic at 24, this was started 2 days ago. TSH normal. Glucose was 319, anion gap was 7. Given 5 units subcu insulin. Creatinine chronic when compared to previous labs. Patient currently medically cleared. We will have [facility] evaluate to help with disposition. Glucose improved to 274. Patient evaluated by [facility]. Patient transferred [facility]. Treatment Plan: [] Disposition: Discharge Impression: 1. Suicidal ideation with depression 2. Chronic kidney disease 3. UTI 4. Elevated glucose This note was generated with Qlibri dictation software. It may contain incorrect words, spelling, and punctuation that were not noted in review of the chart prior to signing ED Disposition - Plan for ED Patient: Disposition: Psychiatric Hospital or Unit Chief Complaint: Anxiety Diagnosis: Depression with suicidal ideation, Chronic kidney disease, UTI (urinary tract infection), Blood glucose elevated Referrals: Con Johnson MD [Primary Care Provider] - What to do if you have Problems For any increased pain, shortness of breath, bleeding, nausea or vomiting, chest pain, or any unexpected problems, contact your Primary Care Provider. Call [facility] ([phone]) or report to the closest Emergency Room. Call 911 if necessary. 04/28/18 1409 <Electronically signed by Bautista Dixon> Date Bautista Dixon Cosigner Signature (If Indicated): Date CC: Con Johnson MD BEDSIDE GLUCOSE Collected: 09/21/2017 Status: F Source: [place] 11:[address] [facility] REPOSITORY TYPE CODE TESTS RESULT OUT OF REFERENCE UNITS RANGE LAB L501.080 70-110 mg/dL High BEDSIDE GLU 274 Result Comment: MANAGEMENT OF PATIENT CARE PER NURSING PROTOCOL Performed By: #### L501.080 #### [facility] Point of Care [facility] [place] [address] CBC W/DIFF, AUTOMATED Collected: 09/21/2017 Status: F Source: [place] 9:[address] [facility] REPOSITORY TYPE CODE TESTS RESULT OUT OF RANGE REFERENCE UNITS LAB L100.1000 4.4-11.0 K/mm3 Normal WBC 8.9 LAB L100.1200 4.2-5.4 M/mm3 Normal RBC 5.21 LAB L100.1300 12.0-15.0 g/dl Normal HGB 13.0 LAB L100.1400 37-47 % Normal HCT 40.7 LAB L100.1500 81-99 fL Low MCV 78.1 LAB L100.1600 27.0-32.0 pg Low MCH 25.0 LAB L100.1700 32-36 g/gl Low MCHC 31.9 LAB L100.1810 11.6-14.6 % High RDW CV 15.0 LAB L100.1820 35.1-43.9 fl Normal RDW SD 42.8 LAB L100.1900 150-450 K/mm3 Normal PLT 257 LAB L100.2000 6.2-12.0 fl Normal MPV 9.7 LAB L100.2100 47-70 % High NEUT% 79.9 LAB L100.2200 19-41 % Low LY% 12.8 LAB L100.2300 0-10 % Normal MONO% 5.9 LAB L100.2400 0-5 % Normal EO% 1.0 LAB L100.2500 0-1 % Normal BASO% 0.3 LAB L100.2550 0.0-0.9 % Normal IM GRAN % 0.100 Result Comment: IG% - Immature Granulocytes (promyelocytes, myelocytes and metamyelocytes) > 1% indicates that a LEFT SHIFT is Present. LAB L100.2620 2.0-7.7 X10 3/uL Normal Absolute Neut 7.1 LAB L100.2720 0.83-4.51 X10 3/ul Normal Absolute Lymph 1.14 Performed By: #### L100.0100 #### [facility] [address] [place], [address] COMPREHENSIVE METABOLIC Collected: 09/21/2017 Status: F Source: [facility] 9:[address] [facility] REPOSITORY TYPE CODE TESTS RESULT OUT OF RANGE REFERENCE UNITS LAB L501.0100 74-106 mg/dL High GLU 319 Result Comment: Glucose result greater than or equal to 200 mg/dL suggests DIABETES MELLITUS per A.D.A. criteria. Please note revised GLUCOSE reference range effective 2017. LAB L501.1000 7-18 mg/dL High BUN 36 LAB L501.1100 0.55-1.02 mg/dL High CREAT,SERUM 1.55 Result Comment: The validity of the calculated GFR AND GFRAA in patients over 70 years has not been determined. Clinical correlation is essential. LAB L501.1110 >60 mL/min Low EST GFR 35 Result Comment: Non- GFR Calc LAB L501.1115 >60 mL/min Low EST GFR - AA 43 Result Comment: GFR Calc LAB L501.1255 ml/min Normal Estimated CRCL 27.94 LAB L501.1300 10-20 RATIO High BUN/CRE 23.2 LAB L501.1500 6.4-8. g/dL Normal 2 T PROT 7.9 LAB L501.1800 3.2-5. g/dL Normal 0 ALB 3.3 LAB L501.1950 2.2-4. g/dL High 2 GLOB 4.6 LAB L501.2000 0.9-2. RATIO Low 4 A/G 0.7 LAB L501.2200 8.5-10 mg/dL Low .1 CA 8.4 LAB L501.4100 15-37 U/L Low AST 12 LAB L501.4305 45-117 U/L Normal ALK P 117 LAB L501.4405 13-56 U/L Normal ALT 16 LAB L501.4600 0.20-1 mg/dL Normal .00 T BILI 0.30 LAB L501.5300 136-14 mmol/L Normal 5 NA 137 LAB L501.5600 3.5-5. mmol/L Normal 1 K 4.2 LAB L501.5900 98-107 mmol/L Normal CL 105 LAB L501.6100 21.0-3 mmol/L Normal 2.0 CO2 25.0 LAB L501.6200 5-15 Normal GAP 7 Performed By: #### L500.4050, L501.9520 #### [facility] [address] [place], [place], [id number] THYROID STIM HORMONE Collected: 09/21/2017 Status: F Source: [place] (TSH) 9:[address] [facility] REPOSITORY TYPE CODE TESTS RESULT OUT OF RANGE REFERENCE UNITS LAB L501.9520 0.358-3.74 uIU/mL Normal TSH 1.28 Performed By: #### L500.4050, L501.9520 #### [facility] [address] [place], [place], [address] ALCOHOL, BLOOD Collected: 09/21/2017 Status: F Source: [place] (MEDICAL)-SERUM 9:[address] [facility] REPOSITORY TYPE CODE TESTS RESULT OUT OF RANGE REFERENCE UNITS LAB L501.9100 mg/dL Normal SERUM 7.0 ETOH Result Comment: The serum:whole blood ethanol ratio is approximately 1.14 and varies slightly with hematocrit. Medical Alcohol reference interval and critical value in non-tolerant individuals; 50 - 100 Impairment 100 Intoxication 100 - 250 Severe Poisoning 250 - 400 Deep/possible fatal coma Performed By: #### L501.9100 #### [facility] [address] [place], [place], [id number] VALPROIC ACID Collected: 09/21/2017 Status: F Source: [place] (DEPAKENE) LEVEL 9:[address] [facility] REPOSITORY TYPE CODE TESTS RESULT OUT OF REFERENCE UNITS RANGE LAB L501.8100 50-100 ug/mL Low VALPROIC ACID 24 Performed By: #### L501.8100 #### [facility] [address] [place], [place], [address] URINE DRUG SCREEN Collected: 09/21/2017 Status: F Source: [place] (VISTA) 9:[address] [facility] REPOSITORY TYPE CODE TESTS RESULT OUT OF RANGE REFERENCE UNITS LAB L505.0075 TO BE Normal CONFIRMED Result Comment: CONFIRMATORY TESTING FOR ALL POSITIVE URINE DRUG SCREEN RESULTS WILL ONLY BE SENT OUT UPON PHYSICIAN ORDER. VISTA Urine Drug Screen methods provide only preliminary analytical test results. A more specific alternate chemical method must be used in order to obtain a confirmed analytical result. Gas chromatography/mass spectrometery (GC/MS) is the preferred confirmatory method. Clinical consideration and professional judgement should be applied to any drug of abuse test result, particularly when preliminary positive results are used. URINE TCA TESTING MUST BE ORDERED SEPARATELY. USE TEST MNEMONIC: [facility]CA LAB L505.5005 VISTA UDS PH 6 Normal LAB L505.5015 <1000 ng/mL AMPHETAMINES Normal NEGATIVE LAB L505.5025 < 200 ng/mL BARBITIURATES Normal NEGATIVE LAB L505.5035 < 200 ng/mL BENZODIAZIPINE Normal NEGATIVE LAB L505.5045 < 300 ng/mL COCAINE Normal NEGATIVE LAB L505.5055 < 500 ng/mL ECSTACY Normal NEGATIVE LAB L505.5065 < 300 ng/mL METHADONE Normal NEGATIVE LAB L505.5075 < 300 High ng/mL OPIATES POSITIVE LAB L505.5085 < 25 ng/mL PCP Normal NEGATIVE LAB L505.5095 < 50 ng/mL THC Normal NEGATIVE Performed By: #### L505.5000 #### [facility] [address] [place], [place], [address] URINALYSIS, COMPLETE Collected: 09/21/2017 Status: F Source: [place] 9:[address] [facility] REPOSITORY Order Comment: Order Date: 09/21/17 How was Urine Obtained? CLEAN CATCH TYPE CODE TESTS RESULT OUT OF RANGE REFERENCE UNITS LAB L400.3000 Yellow COLOR Normal Yellow LAB L400.3050 Clear Normal CLARITY Sl. Cloudy LAB L400.3200 Normal mg/dl High GLUCOSE, UR 250 LAB L400.3300 Negative mg/dL Normal BILIRUBIN URINE Negative LAB L400.3400 Negative mg/dl Normal KETONE UR Negative LAB L400.3465 1.002-1.030 Normal SP.GR. DIPSTX 1.010 LAB L400.3550 5.0 - 8.0 pH UR Normal 6.5 LAB L400.3600 Negative mg/dl High PROT DIPSTX 100 LAB L400.3700 Normal mg/dl Normal UROBILI Normal LAB L400.3750 Negative Normal NITRITE UR Negative LAB L400.3780 Negative /ul High 25 OCCULT BLOOD-UR LAB L400.3800 Negative /ul High LEUK ESTERASE 500 LAB L400.4050 0-5 /hpf WBC Normal 5-10 SEEN LAB L400.4100 0-5 /hpf Normal RBC-UA 0-5 SEEN LAB L400.4150 5-10 /hpf SQUAM Normal EPI 0-5 SEEN LAB L400.4300 None Seen /hpf 1+ Normal BACTERIA LAB L400.4350 <or=2+ /hpf 0 Normal MUCUS, URINE SEEN Performed By: #### L400.0001 #### [facility] [address] [place], [address] Observed: 09/21/2017 Status: F Source: [place] CULTURE, URINE 9:[address] [facility] REPOSITORY Order Date: 09/21/17 Urine Culture ORGANISM 1: Mixed Gram Positive Organisms Peterson Count 11,000-25,000 MIX CULTURE Mixed contaminants. Submit a new specimen if indicated. Performed By: #### M100.0650 #### [facility] [address] [place], [address] CARDIOLOGY VISIT Observed: 07/29/2017 Status: F Source: [place] REPORT 10:[address] [facility] REPOSITORY [facility] [address] [place] [address] OFFICE VISIT Date of Service: 07/17/17 MR#: [id number] Acct: [id number] Name: LISA SEAY Rep #: [id number] : 1945 Provider: EVA Wahl Age/Sex: 72/F Location: [facility] Status: Signed HPI HPI Details: LISA SEAY, is a 72 F who presents to the office today for a cardiovascular outpatient follow-up. Patient has a history of coronary artery disease status post bypass surgery in August 2014 with a DANIEL to LAD, SVG to diagonal, and SVG to OM #2. She also has a history of drug-eluting stenting to left main, LAD, and OM1 in November 2014, hypertension, hyperlipidemia, type 2 diabetes, palpitation, neck fusion, and gastric bypass. 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 Pt. denies chest, arm, jaw, or neck discomfort. Her exercise tolerance is stable. Pt. denies symptoms of CHF, palpitations, dizziness, near syncope, or syncopal episodes. Pt. denies edema or claudication issues. Pt. denies orthopnea, PND, fever, chills, blood in urine, blood in stool, myalgia, or unexplainable fatigue. She states some lightheadedness d/t pain medication. She states some neuropathy and ankle pain. 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 Required: No Accompanied by: Is patient in pain?: Yes Allergies Penicillins Allergy (Severe, Verified 06/07/17 15:35) Unknown atorvastatin calcium [From Lipitor] Allergy (Verified 03/10/17 21:12) Unknown bupropion HCl [From Wellbutrin] Allergy (Verified 03/10/17 21:12) Unknown mannitol [From Reclast] Allergy (Verified 03/10/17 21:12) joint pain, unable to breathe, unable to walk propoxyphene napsylate [From Darvocet-N 100] Allergy (Verified 03/10/17 21:12) Unknown Quinolones Allergy (Verified 03/10/17 21:12) Unknown Tetanus Vaccines and Toxoid [Tetanus Vaccines AND Toxoid] Allergy (Verified 03/10/17 21:12) Chest tightness tizanidine Allergy (Verified 03/10/17 21:12) Unknown water for injection,sterile [From Reclast] Allergy (Verified 03/10/17 21:12) joint pain, unable to breathe, unable to walk zoledronic acid [From Reclast] Allergy (Verified 03/10/17 21:12) joint pain,unable to breathe, unaable to walk pravastatin Adverse Reaction (Severe, Verified 06/07/17 15:36) Myalgias gemfibrozil Adverse Reaction (Intermediate, Verified 06/07/17 15:36) Unknown NSAIDS (Non-Steroidal Anti-Inflamma Adverse Reaction (Verified 03/10/17 21:12) Other Medications Aspirin [Aspirin, Baby] 81 mg PO DAILY@0800 03/10/17 [History Confirmed 07/17/17] Clopidogrel Bisulfate [Plavix] 75 mg PO DAILY 03/10/17 [History Confirmed 07/17/17] Levothyroxine Sodium [Levoxyl] 75 mcg PO QHS 03/10/17 [History Confirmed 07/17/17] Metoprolol Tartrate [Lopressor (beta fina)] 50 mg PO BID 03/10/17 [History Confirmed 07/17/17] Nitroglycerin [Nitrostat] 0.4 mg SUBLINGUAL Q5M PRN 03/10/17 [History Confirmed 07/17/17] Pantoprazole Sodium [Protonix] 40 mg PO DAILY 03/10/17 [History Confirmed 07/17/17] Pravastatin Sodium 40 mg PO DAILY 03/10/17 [History Confirmed 07/17/17] isosorbide mononitrate ER 30 mg tablet,extended release 24 hr 30 mg PO BID tab 06/07/17 [History Confirmed 07/17/17] Amlodipine Besylate [Norvasc] 5 mg PO QHS 06/11/17 [History Confirmed 07/17/17] Clobetasol Propionate [Temovate Cream (BKC)] 1 applic TOPICAL BID tube 07/08/17 [Rx Confirmed 07/17/17] Diazepam [Valium] 2 mg PO Q8H PRN #21 tab 07/08/17 [Rx Confirmed 07/17/17] Ergocalciferol [Vitamin D] 50,000 unit PO Q7D cap 07/08/17 [Rx Confirmed 07/17/17] Insulin Aspart [Novolog Flexpen] 16 units SC TIDAC flexpen 07/08/17 [Rx Confirmed 07/17/17] Insulin Detemir [Levemir FlexPen] 25 units SC BID #1 insuln.pen 07/08/17 [Rx Confirmed 07/17/17] Nutritional Supplement [Blue - ORANGE FLAVOR] 1 packet PO BIDCM #60 packet 07/08/17 [Rx Confirmed 07/17/17] Oxycodone CR [Oxycontin] 20 mg PO BID #14 tab 07/08/17 [Rx Confirmed 07/17/17] Oxycodone [Oxyir] 10 mg PO Q4H PRN PRN #30 tab 07/08/17 [Rx Confirmed 07/17/17] ProMETHAzine [Phenergan] 25 mg PO Q6H PRN PRN #28 tab 07/08/17 [Rx Confirmed 07/17/17] menthol 0.44 %-zinc oxide 20.6 % topical ointment 1 applic TOPICAL DAILY PRN 07/17/17 [History Confirmed 07/17/17] PFSH Medical History Atherosclerotic heart disease of [place] coronary artery without angina pectoris (Chronic) Diabetes mellitus (Chronic) History of stroke (Chronic) Carotid artery disease (Chronic) Malnutrition (Chronic) Diabetes mellitus with polyneuropathy (Chronic) Peripheral vascular disease (Chronic) History of stroke (Chronic) Hypertension (Chronic) Chronic pain (Chronic) Hyperlipidemia (Chronic) Coronary artery disease (Chronic) Hypothyroidism (Chronic) Iron deficiency anemia (Chronic) GERD (gastroesophageal reflux disease) (Chronic) Surgical History Stented coronary artery (Chronic) History of left heart catheterization (Chronic) History of coronary artery bypass graft (Chronic) Family History Mother , age 75 Cancer CVA (cerebral vascular accident) CAD (coronary artery disease) Father CAD (coronary artery disease) History of coronary artery bypass graft Sister CAD (coronary artery disease) Multiple sclerosis Social History Smoking Status: Never smoker alcohol intake: never substance use type: does not use caffeine: Yes Type: coffee what type of physical activity do you participate in: none seatbelt use: sometimes do you feel safe at home: Yes ROS Const Const: Negative for fatigue, weakness, body ache, fever(s) or chills ENT ENT: Negative for dizziness Cardio Chest Pain: No Palpitations: Positive for No Edema: None Muscle aches with walking: None Resp Respiratory: Negative for SOB with activity, SOB at rest, SOB orthopnea\SOB lying down or paroxysmal nocturnal dyspnea GI GI: Negative nausea, black,tarry stools, bright, red blood in stools or vomiting blood/hematemesis : Negative for hematuria or frequent nighttime urination/ nocturia Musc Musc: Negative for muscle aches/ myalgia Neuro Neuro: Negative for weakness, Negative for dizziness, Positive for lightheadedness, Negative for near syncope, Negative for syncope, Negative for orthostatic symptoms Endo Endo: Negative for fatigue Cardiology Exam Const Appearance: cooperative, healthy appearing, comfortable and no acute distress Orientation: alert, awake and oriented x3 Head Head: normal to inspection Mouth: oral mucosae normal Neck Neck: no JVD and normal visual inspection Carotids: normal carotid upstroke Chest Chest inspection: normal inspection of the chest and normal respiratory effort Auscultation: Bilateral: Clear to Auscultation Cardio Rate: regular rate Rhythm: regular rhythm Heart sounds: S1 normal and S2 normal; negative rub or gallop GI GI: normal to inspection Neuro General: alert, awake, oriented x3 and CN's II-XI intact bilaterally Skin Skin: no rashes or lesions noted Extremities Pulses: Normal: Right Posterior Tibial Pulse, Left Posterior Tibial Pulse, Right Radial Pulse, Left Radial Pulse Lower Extremity Edema: None: Bilateral Psych Psychological: normal affect Assessment AND Plan 1. Atherosclerosis of [place] coronary artery of [place] heart without angina pectoris I25.10 CABG X 3 vessels [facility]: DANIEL to LAD, reverse SVG to dx and to 2nd OM per Dr. Borjsa @ [facility] 09/09/2014; PTCA/YASIR to Left main, LAD, and OM1 per Dr. Hatfield 12/21/2014; Plan - CLIFFORD Burris Patient's most recent stress attic echocardiogram from December 2016 was negative for ischemia by both ECG and echo criteria. Reported ejection fraction was 65%. Patient denies any chest pain, arm pain, jaw pain, neck pain, shortness of breath, or fatigue suggestive of angina at this time. We will continue to monitor this. We will not make any medication regimen changes and will continue risk factor modification. 2. Essential hypertension I10 Plan - CLIFFORD Burris His blood pressure is elevated in office. She has had multiple medications discontinued and stopped at different locations for unknown reasons. Thus, we will work with what she is currently taking. We will increase her Norvasc to 10 mg once a day. She will continue to monitor blood pressure at home and contact our office with an update on blood pressure readings. 3. Mixed hyperlipidemia E78.2 Plan - CLIFFORD Burris Patient has not had any recent lipid panel. A new order for both lipid and liver panel will be mailed to patient to have done at her earliest convenience. Patient will continue current cholesterol-lowering medication. 4. Obesity E66.9 Plan - CLIFFORD Burris We will continue to promote and support healthy weight loss. 5. Bilateral carotid artery disease I77.9 Plan - CLIFFORD Burris Patient's most recent carotid ultrasound from September 2015 showed less than 50% stenosis of right extracranial internal carotid and 50-69% stenosis of left external cranial internal carotid. This will be monitored through history, exam, and repeat carotid duplex ultrasound as needed. Plan Detail Additional Comments - CLIFFORD Burris Discussed the above patient with Dr. Hatfield, he agrees with the plan of care. Thank you for allowing us to participate in the patients plan of care, if you have any questions please do not hesitate to call. This note was generated using a voice recognition system and there may be incorrect words, spelling or punctuation that were not noted when reviewing the office note prior to saving. Follow Up 6 Months (DJN) Coding Level of Care Code Off vis,est,level 3 Diagnoses Atherosclerosis of [place] coronary artery of [place] heart without angina pectoris I25.10 [place] vs. transplanted heart: [place] heart Essential hypertension I10 Hypertension type: essential hypertension Mixed hyperlipidemia E78.2 Hyperlipidemia type: mixed hyperlipidemia Obesity E66.9 Obesity type: due to excess calories Obesity classification: adult class 1 (BMI 30 - 34.9) Body mass index: BMI 31.0-31.9 Bilateral carotid artery disease I77.9 Laterality: bilateral Coding Level of Care Code Off vis,est,level 3 Diagnoses Atherosclerosis of [place] coronary artery of [place] heart without angina pectoris I25.10 [place] vs. transplanted heart: [place] heart Essential hypertension I10 Hypertension type: essential hypertension Mixed hyperlipidemia E78.2 Hyperlipidemia type: mixed hyperlipidemia Obesity E66.9 Obesity type: due to excess calories Obesity classification: adult class 1 (BMI 30 - 34.9) Body mass index: BMI 31.0-31.9 Bilateral carotid artery disease I77.9 Laterality: bilateral 07/17/17 1214 <Electronically signed by Lars Wahl SECONDARY HISTORY TEACHER-C> Date Lars Maryuri SECONDARY HISTORY TEACHER-C 07/29/17 1020<Electronically signed by Claus Hatfield MD> Cosigner Signature: Date (if applicable) Claus Hatfield MD CC: Con Johnson MD EMERGENCY DEPARTMENT Observed: 07/25/2017 Status: F Source: [place] SUMMARY 7:[address] [facility] REPOSITORY [facility] Medical Records Department [address] [place] [address] Emergency Department Summary 07/25/17 1932 MR#: [id number] Acct: [id number] Name: LISA SEAY Rep #: [id number] : 1945 72 From: Bautista Dixon PCP: Alex ANAYA,Con Status: REG ER - ER Visit Summary Date of Service: 07/25/17 Chief Complaint: Wound check History of Present Illness: The patient is a 72 F 6 week postop partial amputation right foot by Dr. Villarreal and Dr. Padgett status post IV antibiotics. However she is getting treated for C. difficile day 7. Diarrhea is improving. No abdominal pain. No fevers. History of diabetes. Patient states has been active over the past day on her feet, noticed increasing swelling around the distal foot today. There was clear drainage from one the wound areas. Denies any pain. She called Dr. Dayron guerin was sent to ED for evaluation. Physical Examination: General: Alert and oriented 3, no acute distress HEENT: Normocephalic, atraumatic. Moist mucosa membranes Neck: supple, nontender. Cardiovascular: Regular rate and rhythm, no murmurs Respiratory: Normal breath sounds, symmetric, no distress Abdomen: Soft, nontender, nondistended Extremities: Nontender, no edema, pulses intact 4 right lower extremity: Partial dentition distal foot. Wound was clean, dry, intact. There is no active drainage. Nontender to palpation. Slight erythema around the wound edges. Neuro: no focal neurological deficits. Test Results: [] Emergency Department Course and Treatment: Patient nontoxic, wound appears to be intact and healing. She states there is clear drainage there is no exudates. No pain or fevers. Currently getting treated for C. difficile. Discuss increasing risks to go back on antibiotics for recurrent C. difficile. At this time discussed with good serial exams would be good possible treatment plan for which she agrees. I spoke with Dr. Padgett, who states she can be seen in the office tomorrow for recheck of her foot. This was explained to the patient understands and agrees with plan. If any worsening symptoms to call or return for reevaluation. Treatment Plan: [] Disposition: Discharge Impression: 1. Wound check postop partial foot amputation This note was generated with Qlibri dictation software. It may contain incorrect words, spelling, and punctuation that were not noted in review of the chart prior to signing ED Disposition - Plan for ED Patient: Disposition: Home or Assisted Living Chief Complaint: Lower Extremity Injury Diagnosis: Visit for wound check Instructions: Wound Care Referrals: Con Johnson MD [Primary Care Provider] - Ivanna Magana DPM [STAFF PHYSICIAN] - 1 Day for another exam What to do if you have Problems For any increased pain, shortness of breath, bleeding, nausea or vomiting, chest pain, or any unexpected problems, contact your Primary Care Provider. Call [facility] ([phone]) or report to the closest Emergency Room. Call 911 if necessary. 07/25/171935 <Electronically signed by Bautista Dixon> Date Bautista Dixon Cosigner Signature (If Indicated): Date CC: Con Johnson MD Observed: 07/18/2017 Status: F Source: [place] CDIFF (MOLECULAR) 4:[address] [facility] REPOSITORY RESULTS CALLED TO TUBE BUILDING MACHINE OPERATOR FOR DR.ERIC JOHNSON 07/18/17 [address]. REPORT READ BACK BY SAME . Cdiff-Molecular Normal Reference Range = Negative C. Diff DNA Positive-Toxigenic C. Difficile DNA Detected NAAT METHOD Testing was performed using nucleic acid amplification ORGANISM 1: Toxigenic C. difficile DNA Performed By: #### M100.6796 #### [facility] [address] [place], [place], [address] CBC W/DIFF, AUTOMATED Collected: 07/11/2017 Status: F Source: [place] 10:[address] [facility] REPOSITORY TYPE CODE TESTS RESULT OUT OF RANGE REFERENCE UNITS LAB L100.1000 4.4-11.0 K/mm3 Normal WBC 7.0 LAB L100.1200 4.2-5.4 M/mm3 Normal RBC 4.64 LAB L100.1300 12.0-15.0 g/dl Low HGB 11.8 LAB L100.1400 37-47 % Normal HCT 37.9 LAB L100.1500 81-99 fL Normal MCV 81.7 LAB L100.1600 27.0-32.0 pg Low MCH 25.4 LAB L100.1700 32-36 g/gl Low MCHC 31.1 LAB L100.1810 11.6-14.6 % Normal RDW CV 14.5 LAB L100.1820 35.1-43.9 fl Normal RDW SD 42.1 LAB L100.1900 150-450 K/mm3 Normal PLT 301 LAB L100.2000 6.2-12.0 fl Normal MPV 10.7 LAB L100.2100 47-70 % Normal NEUT% 56.0 LAB L100.2200 19-41 % Normal LY% 29.3 LAB L100.2300 0-10 % Normal MONO% 9.3 LAB L100.2400 0-5 % Normal EO% 4.5 LAB L100.2500 0-1 % Normal BASO% 0.6 LAB L100.2550 0.0-0.9 % Normal IM GRAN % 0.300 Result Comment: IG% - Immature Granulocytes (promyelocytes, myelocytes and metamyelocytes) > 1% indicates that a LEFT SHIFT is Present. LAB L100.2620 2.0-7.7 X10 3/uL Normal Absolute Neut 3.9 LAB L100.2720 0.83-4.51 X10 3/ul Normal Absolute Lymph 2.04 Performed By: #### L100.0100, L101.9900 #### [facility] [address] [place], [address] ERYTHROCYTE SED RATE Collected: 07/11/2017 Status: F Source: [place] 10:[address] [facility] REPOSITORY TYPE CODE TESTS RESULT OUT OF RANGE REFERENCE UNITS LAB L102.0000 0-30 mm/hr High SED RATE 65 Performed By: #### L100.0100, L101.9900 #### [facility] [address] [place], [address] HEMOGLOBIN A1C Collected: 07/11/2017 Status: F Source: [place] 10:[address] [facility] REPOSITORY TYPE CODE TESTS RESULT OUT OF RANGE REFERENCE UNITS LAB L501.9985 4.2-6.3 % High HGB A1C 8.4 Performed By: #### L501.9985 #### [facility] [address] [place], [address] COMPREHENSIVE METABOLIC Collected: 07/11/2017 Status: F Source: [facility] 10:[address] [facility] REPOSITORY TYPE CODE TESTS RESULT OUT OF RANGE REFERENCE UNITS LAB L501.0100 74-106 mg/dL High GLU 132 Result Comment: Fasting Glucose result greater than or equal to 126 mg/dL suggests DIABETES MELLITUS per A.D.A. criteria. Please note revised GLUCOSE reference range effective 2017. LAB L501.1000 7-18 mg/dL High BUN 27 LAB L501.1100 0.55-1.02 mg/dL High CREAT,SERUM 1.44 Result Comment: The validity of the calculated GFR AND GFRAA in patients over 70 years has not been determined. Clinical correlation is essential. LAB L501.1110 >60 mL/min Low EST GFR 38 Result Comment: Non- GFR Calc LAB L501.1115 >60 mL/min Low EST GFR - AA 46 Result Comment: GFR Calc LAB L501.1300 10-20 RATIO Normal BUN/CRE 18.8 LAB L501.1500 6.4-8.2 g/dL High T PROT 8.5 LAB L501.1800 3.2-5.0 g/dL Normal ALB 3.4 LAB L501.1950 2.2-4.2 g/dL High GLOB 5.1 LAB L501.2000 0.9-2.4 RATIO Low A/G 0.7 LAB L501.2200 8.5-10.1 mg/dL CA Normal 9.4 LAB L501.4100 15-37 U/L Normal AST 19 LAB L501.4305 45-117 U/L Normal ALK P 107 LAB L501.4405 13-56 U/L Normal ALT 24 Result Comment: Please note revised ALT reference range effective 2017. LAB L501.4600 0.20-1.00 mg/dL Normal T BILI 0.20 LAB L501.5300 136-145 mmol/L Normal NA 139 LAB L501.5600 3.5-5.1 mmol/L Normal K 4.4 LAB L501.5900 98-107 mmol/L Normal CL 104 LAB L501.6100 21.0-32.0 mmol/L Normal CO2 27.0 LAB L501.6200 5-15 Normal GAP 8 Performed By: #### L500.4050, L501.6710, L501.9520 #### [facility] [address] [place], [address] CRP Collected: 07/11/2017 Status: F Source: [place] 10:[address] [facility] REPOSITORY TYPE CODE TESTS RESULT OUT OF RANGE REFERENCE UNITS LAB L501.6710 0.0-3.0 mg/L Normal < 2.90 C-REACTIVE PROT Result Comment: C-Reactive Protein (CRP) provides useful information for the diagnosis, therapy and monitoring of inflammatory processes and associated diseases. For the evaluation of Relative Risk for Cardiovascular Disease, a High Sensitivity CRP (HSCRP) should be ordered. Performed By: #### L500.4050, L501.6710, L501.9520 #### [facility] [address] [place], [address] THYROID STIM HORMONE Collected: 07/11/2017 Status: F Source: [place] (T[facility]) 10:[address] [facility] REPOSITORY TYPE CODE TESTS RESULT OUT OF RANGE REFERENCE UNITS LAB L501.9520 0.358-3.74 uIU/mL Normal TSH 0.40 Performed By: #### L500.4050, L501.6710, L501.9520 #### [facility] [address] [place], [address] BEDSIDE GLUCOSE Collected: 07/10/2017 Status: F Source: [place] 6:[address] [facility] REPOSITORY TYPE CODE TESTS RESULT OUT OF REFERENCE UNITS RANGE LAB L501.080 70-110 mg/dL High BEDSIDE GLU 189 Result Comment: MANAGEMENT OF PATIENT CARE PER NURSING PROTOCOL Performed By: #### L501.080 #### [facility] Point of Care [address] [address] BEDSIDE GLUCOSE Collected: 07/10/2017 Status: F Source: [place] 12:[address] [facility] REPOSITORY TYPE CODE TESTS RESULT OUT OF REFERENCE UNITS RANGE LAB L501.080 70-110 mg/dL High BEDSIDE GLU 339 Result Comment: MANAGEMENT OF PATIENT CARE PER NURSING PROTOCOL Performed By: #### L501.080 #### [facility] Point of Care [address] [place] [address] BEDSIDE GLUCOSE Collected: 07/09/2017 Status: F Source: [place] 9:[address] [facility] REPOSITORY TYPE CODE TESTS RESULT OUT OF REFERENCE UNITS RANGE LAB L501.080 70-110 mg/dL High alert BEDSIDE GLU 489 Result Comment: Dr Orders Followed MANAGEMENT OF PATIENT CARE PER NURSING PROTOCOL Performed By: #### L501.080 #### [facility] Point of Care [address] [place] [address] DISCHARGE SUMMARY Observed: 07/09/2017 Status: F Source: [place] 8:[address] [facility] REPOSITORY [facility] Medical Records Department [address] [place] [address] Discharge Summary 07/08/17 2213 MR#: [id number] Acct: [id number] Name: LISA SEAY Rep #: [id number] : 1945 72 From: Adolfo Rush MD PCP: Con Johnson MD Status: ADM IN Y Location: [place] [address] ADDENDUM by Adolfo Rush MD on 07/09/17 at 2043 Code Visit Hold discharge until 07/10/2017. 07/09/172042 <Electronically signed by Adolfo Rush MD> Date Adolfo Rush MD cc: Con Johnson MD; Adolfo Rush MD * Signed Discharge Date and Diagnosis Date of Admission: 06/20/17 Date of Discharge: 07/09/17 - Secondary Discharge Diagnosis Chronic Problems (Last Updated 06/07/17 @ 16:07 by Madison Alicea) Peripheral arterial occlusive disease (Chronic) Stroke (Chronic) Stented coronary artery (Chronic) PTCA and YASIR to proximal and distal CX per Dr. Hatfield 12/21/2014; History of left heart catheterization (Chronic) CABG X 3 vessels [facility]:DANIEL to LAD, reverse SVG to dx and to 2nd OM per Dr. Borjas @ [facility] 09/09/2014; PTCA andDES to proximal and distal CX per Dr. Hatfield 12/21/2014; History of coronary artery bypass graft (Chronic) CABG X 3 vessels [facility]:DANIEL to LAD, reverse SVG to dx and to 2nd OM per Dr. Borjas @ [facility] 09/09/2014 Atherosclerotic heart disease of [place] coronary artery without angina pectoris (Chronic) CABG X 3 vessels [facility]:DANIEL to LAD, reverse SVG to dx and to 2nd OM per Dr. Borjas @ [facility] 09/09/2014; PTCA and YASIR to proximal and distal CX per Dr. Hatfield 12/21/2014; C. 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) Carotid artery disease (Chronic) Xerosis of skin (Chronic) Malnutrition (Chronic) Ulcer of right foot with fat layer exposed (Chronic) Diabetes mellitus with polyneuropathy (Chronic) Peripheral vascular disease (Chronic) History of stroke (Chronic) Hypertension (Chronic) Obesity (Chronic) Diabetes mellitus type II (Chronic) Chronic pain (Chronic) Fatty liver (Chronic) Hyperlipidemia (Chronic) Coronary artery disease (Chronic) Hypothyroidism (Chronic) Iron deficiency anemia (Chronic) GERD (gastroesophageal reflux disease) (Chronic) Vitamin D deficiency (Chronic) Insomnia (Chronic) Hospital Course and Treatment Imaging Results: 06/23/17 14:17 Diet: Calorie Controlled Is pt able to select menu?: Yes Diet Comments: COOKED VEGGIES, SHREDDED LETTUCE How many daily calories?: 1800 calorie Labs (Last 48 Hours) POC Glucose 216 H 186 H 213 H POC Glucose 286 H 330 H 157 H POC Glucose 176 H 127 H 350 H Consultations 06/20/17 Consult: Onc/Wound/cushion cover inspector Routine Comment: Reason for Consult:: right plantar sole diabetic ulcer Operations: None Procedures: None Summary of Care Provided: The patient is a 72 year old Female with below past medical history hospitalized for right foot ulcer, right foot osteomyelitis, underwent right foot transmetatarsal amputation per Dr. Magana 06/18/2017, admitted to TCU for rehabilitation, strengthening. Will discharge home with spouse. Will have outpatient physical therapy. [] Discharge Diet: No Restrictions Discharge Activity: Return to Normal Activity, Use Walker Weight Bearing Status: No weight bearing - Right lower extremity. Call your doctor if you observe: Fever of 101 or Higher, Inability to urinate, Inability to have a bowel movement, Shortness of breath, Chest pain, Uncontrolled pain Home Medications: Medications to take at Discharge Aspirin [Aspirin, Baby] 81 mg PO DAILY@0800 03/10/17 Clobetasol Propionate/Emoll [Clobetasol Emollient 0.05% Crm] 1 applic TP BID 03/10/17 Clopidogrel Bisulfate [Plavix] 75 mg PO DAILY 03/10/17 Levothyroxine Sodium [Levoxyl] 75 mcg PO QHS 03/10/17 Metoprolol Tartrate [Lopressor (beta fina)] 50 mg PO BID 03/10/17 Nitroglycerin [Nitrostat] 0.4 mg SUBLINGUAL Q5M PRN 03/10/17 Pantoprazole Sodium [Protonix] 40 mg PO DAILY 03/10/17 Pravastatin Sodium 40 mg PO DAILY 03/10/17 Menthol/Lanolin/Calamine/Znox [Calmoseptine Ointment] 1 applic TOPICAL DAILY 03/11/17 isosorbide mononitrate ER 30 mg tablet,extended release 24 hr 30 mg PO BID tab 06/07/17 Amlodipine Besylate [Norvasc] 5 mg PO QHS 06/11/17 Promethazine HCl 25 mg PO BID PRN PRN 06/11/17 Diazepam [Valium] 2 mg PO TID PRN PRN #6 tab 06/20/17 Oxycodone [Oxyir] 5 - 10 mg PO Q4H PRN PRN #12 tab 06/20/17 Acetaminophen [Tylenol] 1,000 mg PO Q8H PRN tablet 07/08/17 Clobetasol Propionate [Temovate Cream (BKC)] 1 applic TOPICAL BID tube 07/08/17 Diazepam [Valium] 2 mg PO Q8H PRN #21 tablet 07/08/17 Ergocalciferol [Vitamin D] 50,000 unit PO Q7D capsule 07/08/17 Insulin Aspart [Novolog Flexpen] 16 units SC TIDAC flexpen 07/08/17 Insulin Detemir [Levemir FlexPen] 25 units SC BID #1 insuln.pen 07/08/17 MorphINE Soln [Roxanol] 5 mg PO Q4H PRN PRN po.syringe 07/08/17 Nutritional Supplement [Blue - ORANGE FLAVOR] 1 packet PO BIDCM #60 packet 07/08/17 Oxycodone CR [Oxycontin] 20 mg PO BID #14 tablet 07/08/17 Oxycodone [Oxyir] 10 mg PO Q4H PRN PRN #30 tablet 07/08/17 Pantoprazole Sodium [Protonix] 40 mg PO DAILY@0800 #30 tab 07/08/17 ProMETHAzine [Phenergan] 25 mg PO Q6H PRN PRN #28 tab 07/08/17 Following Prescrptions Were Given to Patient: Oxycodone [Oxyir] 10 mg PO Q4H PRN PRN #30 tablet PRN Reason: Severe Pain (6-10/10) ProMETHAzine [Phenergan] 25 mg PO Q6H PRN PRN #28 tab PRN Reason: NAUSEA/VOMITING Diazepam [Valium] 2 mg PO Q8H PRN #21 tablet PRN Reason: Muscle Spasm Pantoprazole Sodium [Protonix] 40 mg PO DAILY@0800 #30 tab Insulin Detemir [Levemir FlexPen] 25 units SC BID #1 insuln.pen Nutritional Supplement [Blue - ORANGE FLAVOR] 1 packet PO BIDCM #60 packet Oxycodone CR [Oxycontin] 20 mg PO BID #14 tablet Primary Care Physician: Con Johnson MD [Primary Care Provider] - Please follow up with your Primary Care Physician in: 1 week. Please Follow Up With: Dr. Magana When: [phone] Please Follow Up With: Dr Padgett Please Follow Up With: Dr. Webb When: 2 weeks. Disposition: Home Minutes spent on discharge:: 35 Patient Condition:: Stable Meaningful Use Info Meaningful Use Diagnoses (Choose all that apply): None applicable 07/08/172214 <Electronically signed by Adoflo Rush MD> Date Adolfo Rush MD Cosign Signature (if applicable): Date CC: Con Johnson MD; Adolfo Rush MD Signed DISCHARGE INSTRUCTION Observed: 07/09/2017 Status: F Source: [place] 8:[address] [facility] REPOSITORY [facility] Medical Records Department [address] [place] [address] Instructions for Home/Discharge Instructions 07/08/17 2210 MR#: [id number] Acct: [id number] Name: LISA SEAY Rep #: [id number] : 1945 72 From: Adolfo Rush MD PCP: Con Johnson MD Status: ADM IN ADDENDUM by Adolfo Rush MD on 07/09/17 at 2042 Hold discharge until 07/10/2017. Date Adolfo Rush MD cc: Con Johnson MD; Ivanna Magana DPM * Signed - Discharge Diagnoses Current Active Problems: Current Active and Chronic Problems (Last Updated 06/07/17 @ 16:07 by Madison Alicea) Peripheral arterial occlusive disease (Chronic) Stroke (Chronic) You will use the following diet at home:: No restrictions, Regular Your food should be the consistency of: Regular Your liquids should be the consistency of: Regular/Thin Discharge Activity: Return to Normal Activity, Use Walker Weight Bearing Status: No weight bearing - Right lower extremity. Call your doctor if you observe: Fever of 101 or Higher, Inability to urinate, Inability to have a bowel movement, Shortness of breath, Chest pain, Uncontrolled pain Allergies/Adverse Reactions: Allergies Penicillins Allergy (Severe, Verified 06/07/17 15:35) Unknown atorvastatin calcium [From Lipitor] Allergy (Verified 03/10/17 21:12) Unknown bupropion HCl [From Wellbutrin] Allergy (Verified 03/10/17 21:12) Unknown mannitol [From Reclast] Allergy (Verified 03/10/17 21:12) joint pain, unable to breathe, unable to walk propoxyphene napsylate [From Darvocet-N 100] Allergy (Verified 03/10/17 21:12) Unknown Quinolones Allergy (Verified 03/10/17 21:12) Unknown Tetanus Vaccines and Toxoid [Tetanus Vaccines AND Toxoid] Allergy (Verified 03/10/17 21:12) Chest tightness tizanidine Allergy (Verified 03/10/17 21:12) Unknown water for injection,sterile [From Reclast] Allergy (Verified 03/10/17 21:12) joint pain, unable to breathe, unable to walk JOINT PAIN,UNABLE TO BREATHE,UNABLE TO WALK zoledronic acid [From Reclast] Allergy (Verified 03/10/17 21:12) joint pain,unable to breathe, unaable to walk JOINT PAIN,UNABLE TO BREATHE,UNABLE TO WALK pravastatin Adverse Reaction (Severe, Verified 06/07/17 15:36) Myalgias gemfibrozil Adverse Reaction (Intermediate, Verified 06/07/17 15:36) Unknown NSAIDS (Non-Steroidal Anti-Inflamma Adverse Reaction (Verified 03/10/17 21:12) Other Medications to take at Discharge Aspirin [Aspirin, Baby] 81 mg PO DAILY@0800 03/10/17 Clobetasol Propionate/Emoll [Clobetasol Emollient 0.05% Crm] 1 applic TP BID 03/10/17 Clopidogrel Bisulfate [Plavix] 75 mg PO DAILY 03/10/17 Levothyroxine Sodium [Levoxyl] 75 mcg PO QHS 03/10/17 Metoprolol Tartrate [Lopressor (beta fina)] 50 mg PO BID 03/10/17 Nitroglycerin [Nitrostat] 0.4 mg SUBLINGUAL Q5M PRN 03/10/17 Pantoprazole Sodium [Protonix] 40 mg PO DAILY 03/10/17 Pravastatin Sodium 40 mg PO DAILY 03/10/17 Menthol/Lanolin/Calamine/Znox [Calmoseptine Ointment] 1 applic TOPICAL DAILY 03/11/17 isosorbide mononitrate ER 30 mg tablet,extended release 24 hr 30 mg PO BID tab 06/07/17 Amlodipine Besylate [Norvasc] 5 mg PO QHS 06/11/17 Promethazine HCl 25 mg PO BID PRN PRN 06/11/17 Diazepam [Valium] 2 mg PO TID PRN PRN #6 tab 06/20/17 Oxycodone [Oxyir] 5 - 10 mg PO Q4H PRN PRN #12 tab 06/20/17 Acetaminophen [Tylenol] 1,000 mg PO Q8H PRN tablet 07/08/17 Clobetasol Propionate [Temovate Cream (BKC)] 1 applic TOPICAL BID tube 07/08/17 Diazepam [Valium] 2 mg PO Q8H PRN #21 tablet 07/08/17 Ergocalciferol [Vitamin D] 50,000 unit PO Q7D capsule 07/08/17 Insulin Aspart [Novolog Flexpen] 16 units SC TIDAC flexpen 07/08/17 Insulin Detemir [Levemir FlexPen] 25 units SC BID #1 insuln.pen 07/08/17 MorphINE Soln [Roxanol] 5 mg PO Q4H PRN PRN po.syringe 02/12/18 Nutritional Supplement [Blue - ORANGE FLAVOR] 1 packet PO BIDCM #60 packet 07/08/17 Oxycodone CR [Oxycontin] 20 mg PO BID #14 tablet 07/08/17 Oxycodone [Oxyir] 10 mg PO Q4H PRN PRN #30 tablet 07/08/17 Pantoprazole Sodium [Protonix] 40 mg PO DAILY@0800 #30 tab 07/08/17 ProMETHAzine [Phenergan] 25 mg PO Q6H PRN PRN #28 tab 07/08/17 The following prescriptions were given: Oxycodone [Oxyir] 10 mg PO Q4H PRN PRN #30 tablet PRN Reason: Severe Pain (-03/05) ProMETHAzine [Phenergan] 25 mg PO Q6H PRN PRN #28 tab PRN Reason: NAUSEA/VOMITING Diazepam [Valium] 2 mg PO Q8H PRN #21 tablet PRN Reason: Muscle Spasm Pantoprazole Sodium [Protonix] 40 mg PO DAILY@0800 #30 tab Insulin Detemir [Levemir FlexPen] 25 units SC BID #1 insuln.pen Nutritional Supplement [Blue - ORANGE FLAVOR] 1 packet PO BIDCM #60 packet Oxycodone CR [Oxycontin] 20 mg PO BID #14 tablet Primary Care Physician: Con Johnson MD [Primary Care Provider] - Please follow up with your Primary Care Physician in: 1 week. Please Follow Up With: Dr. Magana When: [phone] Please Follow Up With: Dr Padgett Please Follow Up With: Dr. Webb When: 2 weeks. Proposed Discharge Date: 07/09/17 07/08/17 2043 <Electronically signed by Adolfo Rush MD> Date Adolfo Rush MD CC: Con Johnson MD; Ivanna Magana DPM BEDSIDE GLUCOSE Collected: 07/09/2017 Status: F Source: [place] 4:[address] [facility] REPOSITORY TYPE CODE TESTS RESULT OUT OF REFERENCE UNITS RANGE LAB L501.080 70-110 mg/dL High BEDSIDE GLU 203 Result Comment: Dr Villela Followed MANAGEMENT OF PATIENT CARE PER NURSING PROTOCOL Performed By: #### L501.080 #### [facility] Point of Care [address] [place] [address] BEDSIDE GLUCOSE Collected: 07/09/2017 Status: F Source: [place] 11:[address] [facility] REPOSITORY TYPE CODE TESTS RESULT OUT OF REFERENCE UNITS RANGE LAB L501.080 70-110 mg/dL High BEDSIDE GLU 189 Result Comment: MANAGEMENT OF PATIENT CARE PER NURSING PROTOCOL Performed By: #### L501.080 #### [facility] Point of Care [address] [place] [address] BEDSIDE GLUCOSE Collected: 07/09/2017 Status: F Source: [place] 6:[address] [facility] REPOSITORY TYPE CODE TESTS RESULT OUT OF REFERENCE UNITS RANGE LAB L501.080 70-110 mg/dL High BEDSIDE GLU 187 Result Comment: MANAGEMENT OF PATIENT CARE PER NURSING PROTOCOL Performed By: #### L501.080 #### [facility] Point of Care [address] [place] [address] BEDSIDE GLUCOSE Collected: 07/08/2017 Status: F Source: [place] 9:[address] [facility] REPOSITORY TYPE CODE TESTS RESULT OUT OF REFERENCE UNITS RANGE LAB L501.080 70-110 mg/dL High BEDSIDE GLU 350 Result Comment: MANAGEMENT OF PATIENT CARE PER NURSING PROTOCOL Performed By: #### L501.080 #### [facility] Point of Care [address] [place] [address] BEDSIDE GLUCOSE Collected: 07/08/2017 Status: F Source: [place] 4:[address] [facility] REPOSITORY TYPE CODE TESTS RESULT OUT OF REFERENCE UNITS RANGE LAB L501.080 70-110 mg/dL High BEDSIDE GLU 127 Result Comment: MANAGEMENT OF PATIENT CARE PER NURSING PROTOCOL Performed By: #### L501.080 #### [facility] Point of Care [address] [place] [address] BEDSIDE GLUCOSE Collected: 07/08/2017 Status: F Source: [place] 11:[address] [facility] REPOSITORY TYPE CODE TESTS RESULT OUT OF REFERENCE UNITS RANGE LAB L501.080 70-110 mg/dL High BEDSIDE GLU 176 Result Comment: Insulin Given MANAGEMENT OF PATIENT CARE PER NURSING PROTOCOL Performed By: #### L501.080 #### [facility] Point of Care [address] [place] [address] BEDSIDE GLUCOSE Collected: 07/08/2017 Status: F Source: [place] 6:[address] [facility] REPOSITORY TYPE CODE TESTS RESULT OUT OF REFERENCE UNITS RANGE LAB L501.080 70-110 mg/dL High BEDSIDE GLU 157 Result Comment: MANAGEMENT OF PATIENT CARE PER NURSING PROTOCOL Performed By: #### L501.080 #### [facility] Point of Care [address] [place] [address] BEDSIDE GLUCOSE Collected: 07/07/2017 Status: F Source: [place] 8:[address] [facility] REPOSITORY TYPE CODE TESTS RESULT OUT OF REFERENCE UNITS RANGE LAB L501.080 70-110 mg/dL High BEDSIDE GLU 330 Result Comment: Dr Orders Followed MANAGEMENT OF PATIENT CARE PER NURSING PROTOCOL Performed By: #### L501.080 #### [facility] Point of Care [address] [place] [address] BEDSIDE GLUCOSE Collected: 07/07/2017 Status: F Source: [place] 4:[address] [facility] REPOSITORY TYPE CODE TESTS RESULT OUT OF REFERENCE UNITS RANGE LAB L501.080 70-110 mg/dL High BEDSIDE GLU 286 Result Comment: Dr Orders Followed MANAGEMENT OF PATIENT CARE PER NURSING PROTOCOL Performed By: #### L501.080 #### [facility] Point of Care [address] [place] [address] BEDSIDE GLUCOSE Collected: 07/07/2017 Status: F Source: [place] 11:[address] [facility] REPOSITORY TYPE CODE TESTS RESULT OUT OF REFERENCE UNITS RANGE LAB L501.080 70-110 mg/dL High BEDSIDE GLU 213 Result Comment: MANAGEMENT OF PATIENT CARE PER NURSING PROTOCOL Performed By: #### L501.080 #### [facility] Point of Care [address] [place] [address] BEDSIDE GLUCOSE Collected: 07/07/2017 Status: F Source: [place] 6:[address] [facility] REPOSITORY TYPE CODE TESTS RESULT OUT OF REFERENCE UNITS RANGE LAB L501.080 70-110 mg/dL High BEDSIDE GLU 186 Result Comment: MANAGEMENT OF PATIENT CARE PER NURSING PROTOCOL Performed By: #### L501.080 #### [facility] Point of Care [address] [place] [address] BEDSIDE GLUCOSE Collected: 07/06/2017 Status: F Source: [place] 10:[address] [facility] REPOSITORY TYPE CODE TESTS RESULT OUT OF REFERENCE UNITS RANGE LAB L501.080 70-110 mg/dL High BEDSIDE GLU 216 Result Comment: Dr Orders Followed MANAGEMENT OF PATIENT CARE PER NURSING PROTOCOL Performed By: #### L501.080 #### [facility] Point of Care [address] [place] [address] BEDSIDE GLUCOSE Collected: 07/06/2017 Status: F Source: [place] 4:[address] [facility] REPOSITORY TYPE CODE TESTS RESULT OUT OF REFERENCE UNITS RANGE LAB L501.080 70-110 mg/dL High BEDSIDE GLU 295 Result Comment: Dr Orders Followed MANAGEMENT OF PATIENT CARE PER NURSING PROTOCOL Performed By: #### L501.080 #### [facility] Point of Care [address] [place] [address] BEDSIDE GLUCOSE Collected: 07/06/2017 Status: F Source: [place] 11:[address] [facility] REPOSITORY TYPE CODE TESTS RESULT OUT OF REFERENCE UNITS RANGE LAB L501.080 70-110 mg/dL High BEDSIDE GLU 150 Result Comment: MANAGEMENT OF PATIENT CARE PER NURSING PROTOCOL Performed By: #### L501.080 #### [facility] Point of Care [address] [place] [address] BEDSIDE GLUCOSE Collected: 07/06/2017 Status: F Source: [place] 6:[address] [facility] REPOSITORY TYPE CODE TESTS RESULT OUT OF REFERENCE UNITS RANGE LAB L501.080 70-110 mg/dL High BEDSIDE GLU 237 Result Comment: MANAGEMENT OF PATIENT CARE PER NURSING PROTOCOL Performed By: #### L501.080 #### [facility] Point of Care [address] [place] [address] BEDSIDE GLUCOSE Collected: 07/05/2017 Status: F Source: [place] 9:[address] [facility] REPOSITORY TYPE CODE TESTS RESULT OUT OF REFERENCE UNITS RANGE LAB L501.080 70-110 mg/dL High BEDSIDE GLU 398 Result Comment: Dr Orders Followed MANAGEMENT OF PATIENT CARE PER NURSING PROTOCOL Performed By: #### L501.080 #### [facility] Point of Care [address] [place] [address] BEDSIDE GLUCOSE Collected: 07/05/2017 Status: F Source: [place] 4:[address] [facility] REPOSITORY TYPE CODE TESTS RESULT OUT OF REFERENCE UNITS RANGE LAB L501.080 70-110 mg/dL High BEDSIDE GLU 196 Result Comment: Dr Orders Followed MANAGEMENT OF PATIENT CARE PER NURSING PROTOCOL Performed By: #### L501.080 #### [facility] Point of Care [address] [place] [address] BEDSIDE GLUCOSE Collected: 07/05/2017 Status: F Source: [place] 11:[address] [facility] REPOSITORY TYPE CODE TESTS RESULT OUT OF REFERENCE UNITS RANGE LAB L501.080 70-110 mg/dL High BEDSIDE GLU 114 Result Comment: MANAGEMENT OF PATIENT CARE PER NURSING PROTOCOL Performed By: #### L501.080 #### [facility] Point of Care [address] [place] [address] BEDSIDE GLUCOSE Collected: 07/05/2017 Status: F Source: [place] 6:[address] [facility] REPOSITORY TYPE CODE TESTS RESULT OUT OF REFERENCE UNITS RANGE LAB L501.080 70-110 mg/dL High BEDSIDE GLU 171 Result Comment: MANAGEMENT OF PATIENT CARE PER NURSING PROTOCOL Performed By: #### L501.080 #### [facility] Point of Care [address] [place], [place] [address] CBC W/DIFF, AUTOMATED Collected: 07/05/2017 Status: F Source: [place] 6:[address] [facility] REPOSITORY Order Comment: NURSE DRAW TYPE CODE TESTS RESULT OUT OF RANGE REFERENCE UNITS LAB L100.1000 4.4-11.0 K/mm3 Normal WBC 6.0 LAB L100.1200 4.2-5.4 M/mm3 Low RBC 3.72 LAB L100.1300 12.0-15.0 g/dl Low HGB 9.5 LAB L100.1400 37-47 % Low HCT 30.8 LAB L100.1500 81-99 fL Normal MCV 82.8 LAB L100.1600 27.0-32.0 pg Low MCH 25.5 LAB L100.1700 32-36 g/gl Low MCHC 30.8 LAB L100.1810 11.6-14.6 % Normal RDW CV 14.5 LAB L100.1820 35.1-43.9 fl Normal RDW SD 43.9 LAB L100.1900 150-450 K/mm3 Normal PLT 207 LAB L100.2000 6.2-12.0 fl Normal MPV 9.1 LAB L100.2100 47-70 % Low NEUT% 45.3 LAB L100.2200 19-41 % Normal LY% 34.6 LAB L100.2300 0-10 % High MONO% 11.9 LAB L100.2400 0-5 % High EO% 7.6 LAB L100.2500 0-1 % Normal BASO% 0.3 LAB L100.2550 0.0-0.9 % Normal IM GRAN % 0.300 Result Comment: IG% - Immature Granulocytes (promyelocytes, myelocytes and metamyelocytes) > 1% indicates that a LEFT SHIFT is Present. LAB L100.2620 2.0-7.7 X10 3/uL Normal Absolute Neut 2.7 LAB L100.2720 0.83-4.51 X10 3/ul Normal Absolute Lymph 2.06 Performed By: #### L100.0100 #### [facility] [address] [place], [address] BASIC METABOLIC Collected: 07/05/2017 Status: F Source: [place] [facility] ([facility]) 6:[address] [facility] REPOSITORY Order Comment: NURSE DRAW. TYPE CODE TESTS RESULT OUT OF RANGE REFERENCE UNITS LAB L501.0100 74-106 mg/dL High GLU 173 Result Comment: Fasting Glucose result greater than or equal to 126 mg/dL suggests DIABETES MELLITUS per A.D.A. criteria. Please note revised GLUCOSE reference range effective 2017. LAB L501.1000 7-18 mg/dL High BUN 40 LAB L501.1100 0.55-1.02 mg/dL High CREAT,SERUM 1.33 Result Comment: The validity of the calculated GFR AND GFRAA in patients over 70 years has not been determined. Clinical correlation is essential. LAB L501.1110 >60 mL/min Low EST GFR 42 Result Comment: Non- GFR Calc LAB L501.1115 >60 mL/min Low EST GFR - AA 51 Result Comment: GFR Calc LAB L501.1255 ml/min Normal Estimated CRCL 33.99 LAB L501.1300 10-20 RATIO High BUN/CRE 30.1 LAB L501.2200 8.5-10 mg/dL Normal .1 CA 9.1 LAB L501.5300 136-14 mmol/L Normal 5 NA 141 LAB L501.5600 3.5-5. mmol/L Normal 1 K 4.3 LAB L501.5900 98-107 mmol/L Normal CL 104 LAB L501.6100 21.0-3 mmol/L Normal 2.0 CO2 27.0 LAB L501.6200 5-15 Normal GAP 10 Performed By: #### L500.2500 #### [facility] [address] [place], [address] BEDSIDE GLUCOSE Collected: 07/04/2017 Status: F Source: [place] 8:[address] [facility] REPOSITORY TYPE CODE TESTS RESULT OUT OF REFERENCE UNITS RANGE LAB L501.080 70-110 mg/dL High BEDSIDE GLU 217 Result Comment: Orders Followed MANAGEMENT OF PATIENT CARE PER NURSING PROTOCOL Performed By: #### L501.080 #### [facility] Point of Care [address] [place] [address] BEDSIDE GLUCOSE Collected: 07/04/2017 Status: F Source: [place] 5:[address] [facility] REPOSITORY TYPE CODE TESTS RESULT OUT OF REFERENCE UNITS RANGE LAB L501.080 70-110 mg/dL High BEDSIDE GLU 159 Result Comment: Orders Followed MANAGEMENT OF PATIENT CARE PER NURSING PROTOCOL Performed By: #### L501.080 #### [facility] Point of [facility] [address] [place] [address] BEDSIDE GLUCOSE Collected: 07/04/2017 Status: F Source: [place] 11:[address] [facility] REPOSITORY TYPE CODE TESTS RESULT OUT OF REFERENCE UNITS RANGE LAB L501.080 70-110 mg/dL High BEDSIDE GLU 240 Result Comment: MANAGEMENT OF PATIENT CARE PER NURSING PROTOCOL Performed By: #### L501.080 #### [facility] Point of Care [address] [place] [address] BEDSIDE GLUCOSE Collected: 07/04/2017 Status: F Source: [place] 6:[address] [facility] REPOSITORY TYPE CODE TESTS RESULT OUT OF REFERENCE UNITS RANGE LAB L501.080 70-110 mg/dL High BEDSIDE GLU 129 Result Comment: MANAGEMENT OF PATIENT CARE PER NURSING PROTOCOL Performed By: #### L501.080 #### [facility] Point of Care [address] [place] [address] BEDSIDE GLUCOSE Collected: 07/03/2017 Status: F Source: [place] 8:[address] [facility] REPOSITORY TYPE CODE TESTS RESULT OUT OF REFERENCE UNITS RANGE LAB L501.080 70-110 mg/dL High BEDSIDE GLU 310 Result Comment: Dr Orders Followed MANAGEMENT OF PATIENT CARE PER NURSING PROTOCOL Performed By: #### L501.080 #### [facility] Point of Care [address] [place] [address] BEDSIDE GLUCOSE Collected: 07/03/2017 Status: F Source: [place] 5:[address] [facility] REPOSITORY TYPE CODE TESTS RESULT OUT OF REFERENCE UNITS RANGE LAB L501.080 70-110 mg/dL High BEDSIDE GLU 203 Result Comment: Dr Orders Followed MANAGEMENT OF PATIENT CARE PER NURSING PROTOCOL Performed By: #### L501.080 #### [facility] Point of [facility] [address] [place] [address] BEDSIDE GLUCOSE Collected: 07/03/2017 Status: F Source: [place] 11:[address] [facility] REPOSITORY TYPE CODE TESTS RESULT OUT OF REFERENCE UNITS RANGE LAB L501.080 70-110 mg/dL High BEDSIDE GLU 274 Result Comment: MANAGEMENT OF PATIENT CARE PER NURSING PROTOCOL Performed By: #### L501.080 #### [facility] Point of Care [address] [place], [place] [id number] BEDSIDE GLUCOSE Collected: 07/03/2017 Status: F Source: [place] 6:[address] [facility] REPOSITORY TYPE CODE TESTS RESULT OUT OF REFERENCE UNITS RANGE LAB L501.080 70-110 mg/dL High BEDSIDE GLU 188 Result Comment: MANAGEMENT OF PATIENT CARE PER NURSING PROTOCOL Performed By: #### L501.080 #### [facility] Point of [facility] [address] [place], [place] [address] BEDSIDE GLUCOSE Collected: 07/02/2017 Status: F Source: [place] 9:[address] [facility] REPOSITORY TYPE CODE TESTS RESULT OUT OF REFERENCE UNITS RANGE LAB L501.080 70-110 mg/dL High BEDSIDE GLU 133 Result Comment: MANAGEMENT OF PATIENT CARE PER NURSING PROTOCOL Performed By: #### L501.080 #### [facility] Point of [facility] [address] [place] [address] BEDSIDE GLUCOSE Collected: 07/02/2017 Status: F Source: [place] 5:[address] [facility] REPOSITORY TYPE CODE TESTS RESULT OUT OF REFERENCE UNITS RANGE LAB L501.080 70-110 mg/dL High BEDSIDE GLU 151 Result Comment: Dr Orders Followed MANAGEMENT OF PATIENT CARE PER NURSING PROTOCOL Performed By: #### L501.080 #### [facility] Point [facility] [address] [place], [place] [address] BEDSIDE GLUCOSE Collected: 07/02/2017 Status: F Source: [place] 11:[address] [facility] REPOSITORY TYPE CODE TESTS RESULT OUT OF REFERENCE UNITS RANGE LAB L501.080 70-110 mg/dL High BEDSIDE GLU 140 Result Comment: MANAGEMENT OF PATIENT CARE PER NURSING PROTOCOL Performed By: #### L501.080 #### [facility] Point of [facility] [address] [place] [address] 12 LEAD ELECTROCARDIOGRAM Observed: 07/02/2017 Status: F Source: [place] 8:[address] [facility] REPOSITORY [facility] [address] [place] [address] 12 Lead EKG 06/19/17 [id number] MR#: [id number] Acct: [id number] Name: LISA SEAY Rep #: [id number] : 1945 72 From: Trenton Prescott MD Attending Dr: Con Hernandez DO Status: DIS IN Ordering Dr: Con Hernandez DO Date: 06/19/17 Location: [facility] [place] Sex: F C Admitted: 06/11/17 Test Reason : CP Blood Pressure : / mmHG Vent. Rate : 096 BPM Atrial Rate : 096 BPM P-R Int : 168 ms QRS Dur : 078 ms QT Int : 342 ms P-R-T Axes : 057 021 139 degrees QTc Int : 432 ms Normal sinus rhythm Nonspecific ST and T wave abnormality Abnormal ECG When compared with ECG of 13-JUN-2017 09:25, MANUAL COMPARISON REQUIRED, DATA IS UNCONFIRMED Confirmed by TRENTON PRESCOTT MD ([id number]), supervising editor news reel KRISTEN RUBI ([id number]) on 07/02/2017 8:53:06 AM Referred By: Ivanna Magana Confirmed By:TRENTON PRESCOTT MD 07/02/17 0853 Date Trenton Prescott MD CC: Con Hernandez DO; Con Johnson MD Signed BEDSIDE GLUCOSE Collected: 07/02/2017 Status: F Source: [place] 6:[address] [facility] REPOSITORY TYPE CODE TESTS RESULT OUT OF REFERENCE UNITS RANGE LAB L501.080 70-110 mg/dL High BEDSIDE GLU 173 Result Comment: MANAGEMENT OF PATIENT CARE PER NURSING PROTOCOL Performed By: #### L501.080 #### [facility] Point of [facility] [address] [place], [place] [id number] BEDSIDE GLUCOSE Collected: 07/01/2017 Status: F Source: [place] 9:[address] [facility] REPOSITORY TYPE CODE TESTS RESULT OUT OF REFERENCE UNITS RANGE LAB L501.080 70-110 mg/dL High BEDSIDE GLU 217 Result Comment: Orders Followed MANAGEMENT OF PATIENT CARE PER NURSING PROTOCOL Performed By: #### L501.080 #### [facility] Point of [facility] [address] [place] [address] BEDSIDE GLUCOSE Collected: 07/01/2017 Status: F Source: [place] 4:[address] [facility] REPOSITORY TYPE CODE TESTS RESULT OUT OF RANGE REFERENCE UNITS LAB L501.080 70-110 mg/dL Normal BEDSIDE GLU 110 Result Comment: Dr Villela Followed MANAGEMENT OF PATIENT CARE PER NURSING PROTOCOL Performed By: #### L501.080 #### [facility] Point of [facility] [address] [place], [place] [address] BEDSIDE GLUCOSE Collected: 07/01/2017 Status: F Source: [place] 11:[address] [facility] REPOSITORY TYPE CODE TESTS RESULT OUT OF REFERENCE UNITS RANGE LAB L501.080 70-110 mg/dL High BEDSIDE GLU 206 Result Comment: MANAGEMENT OF PATIENT CARE PER NURSING PROTOCOL Performed By: #### L501.080 #### [facility] Point of [facility] [address] [place] [address] BEDSIDE GLUCOSE Collected: 07/01/2017 Status: F Source: [place] 6:[address] [facility] REPOSITORY TYPE CODE TESTS RESULT OUT OF REFERENCE UNITS RANGE LAB L501.080 70-110 mg/dL High BEDSIDE GLU 202 Result Comment: MANAGEMENT OF PATIENT CARE PER NURSING PROTOCOL Performed By: #### L501.080 #### [facility] Point of [facility] [address] [place] [address] BEDSIDE GLUCOSE Collected: 06/30/2017 Status: F Source: [place] 9:[address] [facility] REPOSITORY TYPE CODE TESTS RESULT OUT OF REFERENCE UNITS RANGE LAB L501.080 70-110 mg/dL High BEDSIDE GLU 264 Result Comment: MANAGEMENT OF PATIENT CARE PER NURSING PROTOCOL Performed By: #### L501.080 #### [facility] Point [facility] [address] [place] [address] BEDSIDE GLUCOSE Collected: 06/30/2017 Status: F Source: [place] 4:[address] [facility] REPOSITORY TYPE CODE TESTS RESULT OUT OF REFERENCE UNITS RANGE LAB L501.080 70-110 mg/dL High BEDSIDE GLU 193 Result Comment: MANAGEMENT OF PATIENT CARE PER NURSING PROTOCOL Performed By: #### L501.080 #### [facility] Point [facility] [address] [place] [address] BEDSIDE GLUCOSE Collected: 06/30/2017 Status: F Source: [place] 11:[address] [facility] REPOSITORY TYPE CODE TESTS RESULT OUT OF REFERENCE UNITS RANGE LAB L501.080 70-110 mg/dL High BEDSIDE GLU 324 Result Comment: MANAGEMENT OF PATIENT CARE PER NURSING PROTOCOL Performed By: #### L501.080 #### [facility] [address] [place] [address] BEDSIDE GLUCOSE Collected: 06/30/2017 Status: F Source: [place] 6:[address] [facility] REPOSITORY TYPE CODE TESTS RESULT OUT OF REFERENCE UNITS RANGE LAB L501.080 70-110 mg/dL High BEDSIDE GLU 137 Result Comment: MANAGEMENT OF PATIENT CARE PER NURSING PROTOCOL Performed By: #### L501.080 #### [facility] Point [facility] [address] [place] [address] BEDSIDE GLUCOSE Collected: 06/29/2017 Status: F Source: [place] 9:[address] [facility] REPOSITORY TYPE CODE TESTS RESULT OUT OF REFERENCE UNITS RANGE LAB L501.080 70-110 mg/dL High BEDSIDE GLU 121 Result Comment: MANAGEMENT OF PATIENT CARE PER NURSING PROTOCOL Performed By: #### L501.080 #### [facility] Point [facility] [address] [place] [address] BEDSIDE GLUCOSE Collected: 06/29/2017 Status: F Source: [place] 5:[address] [facility] REPOSITORY TYPE CODE TESTS RESULT OUT OF REFERENCE UNITS RANGE LAB L501.080 70-110 mg/dL High BEDSIDE GLU 219 Result Comment: MANAGEMENT OF PATIENT CARE PER NURSING PROTOCOL Performed By: #### L501.080 #### [facility] Point [facility] [address] [place] [address] BEDSIDE GLUCOSE Collected: 06/29/2017 Status: F Source: [place] 11:[address] [facility] REPOSITORY TYPE CODE TESTS RESULT OUT OF REFERENCE UNITS RANGE LAB L501.080 70-110 mg/dL High BEDSIDE GLU 237 Result Comment: MANAGEMENT OF PATIENT CARE PER NURSING PROTOCOL Performed By: #### L501.080 #### [facility] [address] [place] [address] BEDSIDE GLUCOSE Collected: 06/29/2017 Status: F Source: [place] 6:[address] [facility] REPOSITORY TYPE CODE TESTS RESULT OUT OF REFERENCE UNITS RANGE LAB L501.080 70-110 mg/dL High BEDSIDE GLU 140 Result Comment: MANAGEMENT OF PATIENT CARE PER NURSING PROTOCOL Performed By: #### L501.080 #### [facility] [address] [place] [address] BEDSIDE GLUCOSE Collected: 06/28/2017 Status: F Source: [place] 9:[address] [facility] REPOSITORY TYPE CODE TESTS RESULT OUT OF REFERENCE UNITS RANGE LAB L501.080 70-110 mg/dL High BEDSIDE GLU 200 Result Comment: MANAGEMENT OF PATIENT CARE PER NURSING PROTOCOL Performed By: #### L501.080 #### [facility] [address] [place] [address] BEDSIDE GLUCOSE Collected: 06/28/2017 Status: F Source: [place] 5:[address] [facility] REPOSITORY TYPE CODE TESTS RESULT OUT OF REFERENCE UNITS RANGE LAB L501.080 70-110 mg/dL High BEDSIDE GLU 188 Result Comment: MANAGEMENT OF PATIENT CARE PER NURSING PROTOCOL Performed By: #### L501.080 #### [facility] [address] [place] [address] BEDSIDE GLUCOSE Collected: 06/28/2017 Status: F Source: [place] 11:[address] [facility] REPOSITORY TYPE CODE TESTS RESULT OUT OF REFERENCE UNITS RANGE LAB L501.080 70-110 mg/dL High BEDSIDE GLU 238 Result Comment: MANAGEMENT OF PATIENT CARE PER NURSING PROTOCOL Performed By: #### L501.080 #### [facility] [address] [place] [address] CBC W/DIFF, AUTOMATED Collected: 06/28/2017 Status: F Source: [place] 6:[address] [facility] REPOSITORY TYPE CODE TESTS RESULT OUT OF RANGE REFERENCE UNITS LAB L100.1000 4.4-11.0 K/mm3 Normal WBC 5.2 LAB L100.1200 4.2-5.4 M/mm3 Low RBC 3.79 LAB L100.1300 12.0-15.0 g/dl Low HGB 9.7 LAB L100.1400 37-47 % Low HCT 31.6 LAB L100.1500 81-99 fL Normal MCV 83.4 LAB L100.1600 27.0-32.0 pg Low MCH 25.6 LAB L100.1700 32-36 g/gl Low MCHC 30.7 LAB L100.1810 11.6-14.6 % High RDW CV 15.3 LAB L100.1820 35.1-43.9 fl High RDW SD 46.7 LAB L100.1900 150-450 K/mm3 Normal PLT 235 LAB L100.2000 6.2-12.0 fl Normal MPV 8.9 LAB L100.2100 47-70 % Normal NEUT% 47.1 LAB L100.2200 19-41 % Normal LY% 34.0 LAB L100.2300 0-10 % High MONO% 13.4 LAB L100.2400 0-5 % Normal EO% 4.9 LAB L100.2500 0-1 % Normal BASO% 0.4 LAB L100.2550 0.0-0.9 % Normal IM GRAN % 0.200 Result Comment: IG% - Immature Granulocytes (promyelocytes, myelocytes and metamyelocytes) > 1% indicates that a LEFT SHIFT is Present. LAB L100.2620 2.0-7.7 X10 3/uL Normal Absolute Neut 2.4 LAB L100.2720 0.83-4.51 X10 3/ul Normal Absolute Lymph 1.75 Performed By: #### L100.0100 #### [facility] [address] [place], [place], [address] BASIC METABOLIC Collected: 06/28/2017 Status: F Source: [place] PROFILE ([facility]) 6:[address] [facility] REPOSITORY TYPE CODE TESTS RESULT OUT OF RANGE REFERENCE UNITS LAB L501.0100 70-110 mg/dL High GLU 203 Result Comment: Glucose result greater than or equal to 200 mg/dL suggests DIABETES MELLITUS per A.D.A. criteria. LAB L501.1000 7-18 mg/dL High BUN 42 LAB L501.1100 0.55-1.02 mg/dL High CREAT,SERUM 1.45 Result Comment: The validity of the calculated GFR AND GFRAA in patients over 70 years has not been determined. Clinical correlation is essential. LAB L501.1110 >60 mL/min Low EST GFR 38 Result Comment: Non- GFR Calc LAB L501.1115 >60 mL/min Low EST GFR - AA 46 Result Comment: GFR Calc LAB L501.1255 ml/min Normal Estimated CRCL 31.17 LAB L501.1300 10-20 RATIO High BUN/CRE 29.0 LAB L501.2200 8.5-10 mg/dL Normal .1 CA 8.7 LAB L501.5300 136-14 mmol/L Normal 5 NA 140 LAB L501.5600 3.5-5. mmol/L Normal 1 K 4.2 LAB L501.5900 98-107 mmol/L Normal CL 106 LAB L501.6100 21.0-3 mmol/L Normal 2.0 CO2 25.0 LAB L501.6200 5-15 Normal GAP 9 Performed By: #### L500.2500 #### [facility] [address], [address] BEDSIDE GLUCOSE Collected: 06/28/2017 Status: F Source: [place] 6:[address] [facility] REPOSITORY TYPE CODE TESTS RESULT OUT OF REFERENCE UNITS RANGE LAB L501.080 70-110 mg/dL High BEDSIDE GLU 189 Result Comment: MANAGEMENT OF PATIENT CARE PER NURSING PROTOCOL Performed By: #### L501.080 #### [facility] [address] [place] [address] BEDSIDE GLUCOSE Collected: 06/27/2017 Status: F Source: [place] 8:[address] [facility] REPOSITORY TYPE CODE TESTS RESULT OUT OF REFERENCE UNITS RANGE LAB L501.080 70-110 mg/dL High BEDSIDE GLU 326 Result Comment: Dr Villela Followed MANAGEMENT OF PATIENT CARE PER NURSING PROTOCOL Performed By: #### L501.080 #### [facility] [address] [place] [address] BEDSIDE GLUCOSE Collected: 06/27/2017 Status: F Source: [place] 4:[address] [facility] REPOSITORY TYPE CODE TESTS RESULT OUT OF REFERENCE UNITS RANGE LAB L501.080 70-110 mg/dL High BEDSIDE GLU 268 Result Comment: Dr Villela Followed MANAGEMENT OF PATIENT CARE PER NURSING PROTOCOL Performed By: #### L501.080 #### [facility] [address] [place] [address] BEDSIDE GLUCOSE Collected: 06/27/2017 Status: F Source: [place] 10:[address] [facility] REPOSITORY TYPE CODE TESTS RESULT OUT OF REFERENCE UNITS RANGE LAB L501.080 70-110 mg/dL High BEDSIDE GLU 249 Result Comment: MANAGEMENT OF PATIENT CARE PER NURSING PROTOCOL Performed By: #### L501.080 #### [facility] [address] [place] [address] BEDSIDE GLUCOSE Collected: 06/27/2017 Status: F Source: [place] 6:[address] [facility] REPOSITORY TYPE CODE TESTS RESULT OUT OF REFERENCE UNITS RANGE LAB L501.080 70-110 mg/dL High BEDSIDE GLU 183 Result Comment: MANAGEMENT OF PATIENT CARE PER NURSING PROTOCOL Performed By: #### L501.080 #### [facility] [address] [place] [address] BEDSIDE GLUCOSE Collected: 06/26/2017 Status: F Source: [place] 9:[address] [facility] REPOSITORY TYPE CODE TESTS RESULT OUT OF REFERENCE UNITS RANGE LAB L501.080 70-110 mg/dL High BEDSIDE GLU 170 Result Comment: MANAGEMENT OF PATIENT CARE PER NURSING PROTOCOL Performed By: #### L501.080 #### [facility] [address] [place] [address] BEDSIDE GLUCOSE Collected: 06/26/2017 Status: F Source: [place] 8:[address] [facility] REPOSITORY TYPE CODE TESTS RESULT OUT OF REFERENCE UNITS RANGE LAB L501.080 70-110 mg/dL High BEDSIDE GLU 141 Result Comment: MANAGEMENT OF PATIENT CARE PER NURSING PROTOCOL Performed By: #### L501.080 #### [facility] [address] [place] [address] BEDSIDE GLUCOSE Collected: 06/26/2017 Status: F Source: [place] 5:[address] [facility] REPOSITORY TYPE CODE TESTS RESULT OUT OF REFERENCE UNITS RANGE LAB L501.080 70-110 mg/dL High BEDSIDE GLU 116 Result Comment: MANAGEMENT OF PATIENT CARE PER NURSING PROTOCOL Performed By: #### L501.080 #### [facility] [address] [place], [place] [address] ERYTHROCYTE SED RATE Collected: 06/26/2017 Status: F Source: [place] 12:[address] [facility] REPOSITORY TYPE CODE TESTS RESULT OUT OF RANGE REFERENCE UNITS LAB L102.0000 0-30 mm/hr High SED RATE 87 Performed By: #### L101.9900 #### [facility] [address] [place], [address] CRP Collected: 06/26/2017 Status: F Source: [place] 12:[address] [facility] REPOSITORY TYPE CODE TESTS RESULT OUT OF RANGE REFERENCE UNITS LAB L501.6710 0.0-3.0 mg/L High 48.60 C-REACTIVE PROT Result Comment: C-Reactive Protein (CRP) provides useful information for the diagnosis, therapy and monitoring of inflammatory processes and associated diseases. For the evaluation of Relative Risk for Cardiovascular Disease, a High Sensitivity CRP (HSCRP) should be ordered. Performed By: #### L501.6710 #### [facility] [address] [place], [place], [address] BEDSIDE GLUCOSE Collected: 06/26/2017 Status: F Source: [place] 11:[address] [facility] REPOSITORY TYPE CODE TESTS RESULT OUT OF REFERENCE UNITS RANGE LAB L501.080 70-110 mg/dL High BEDSIDE GLU 238 Result Comment: MANAGEMENT OF PATIENT CARE PER NURSING PROTOCOL Performed By: #### L501.080 #### [facility] Point of Care [address] [place], [place] [id number] [phone] BEDSIDE GLUCOSE Collected: 06/26/2017 Status: F Source: [place] 6:[address] [facility] REPOSITORY TYPE CODE TESTS RESULT OUT OF REFERENCE UNITS RANGE LAB L501.080 70-110 mg/dL High BEDSIDE GLU 217 Result Comment: MANAGEMENT OF PATIENT CARE PER NURSING PROTOCOL Performed By: #### L501.080 #### [facility] Point of Care [address] [place] [address] BEDSIDE GLUCOSE Collected: 06/25/2017 Status: F Source: [place] 9:[address] [facility] REPOSITORY TYPE CODE TESTS RESULT OUT OF REFERENCE UNITS RANGE LAB L501.080 70-110 mg/dL High BEDSIDE GLU 368 Result Comment: Dr Villela Followed MANAGEMENT OF PATIENT CARE PER NURSING PROTOCOL Performed By: #### L501.080 #### [facility] Point of Care [address] [place] [address] BEDSIDE GLUCOSE Collected: 06/25/2017 Status: F Source: [place] 5:[address] [facility] REPOSITORY TYPE CODE TESTS RESULT OUT OF RANGE REFERENCE UNITS LAB L501.080 70-110 mg/dL Normal BEDSIDE GLU 103 Result Comment: MANAGEMENT OF PATIENT CARE PER NURSING PROTOCOL Performed By: #### L501.080 #### [facility] Point of Care [address] [place] [address] BEDSIDE GLUCOSE Collected: 06/25/2017 Status: F Source: [place] 1:[address] [facility] REPOSITORY TYPE CODE TESTS RESULT OUT OF REFERENCE UNITS RANGE LAB L501.080 70-110 mg/dL High BEDSIDE GLU 189 Result Comment: MANAGEMENT OF PATIENT CARE PER NURSING PROTOCOL Performed By: #### L501.080 #### [facility] Point of Care [address] [place] [address] BEDSIDE GLUCOSE Collected: 06/25/2017 Status: F Source: [place] 11:[address] [facility] REPOSITORY TYPE CODE TESTS RESULT OUT OF REFERENCE UNITS RANGE LAB L501.080 70-110 mg/dL High BEDSIDE GLU 123 Result Comment: MANAGEMENT OF PATIENT CARE PER NURSING PROTOCOL Performed By: #### L501.080 #### [facility] Point of Care [address] [place] [address] BEDSIDE GLUCOSE Collected: 06/25/2017 Status: F Source: [place] 6:[address] [facility] REPOSITORY TYPE CODE TESTS RESULT OUT OF REFERENCE UNITS RANGE LAB L501.080 70-110 mg/dL High BEDSIDE GLU 159 Result Comment: MANAGEMENT OF PATIENT CARE PER NURSING PROTOCOL Performed By: #### L501.080 #### [facility] Point of Care [address] [place] [address] BEDSIDE GLUCOSE Collected: 06/24/2017 Status: F Source: [place] 9:[address] [facility] REPOSITORY TYPE CODE TESTS RESULT OUT OF REFERENCE UNITS RANGE LAB L501.080 70-110 mg/dL High BEDSIDE GLU 308 Result Comment: MANAGEMENT OF PATIENT CARE PER NURSING PROTOCOL Performed By: #### L501.080 #### [facility] Point of Care [address] [place] [address] BEDSIDE GLUCOSE Collected: 06/24/2017 Status: F Source: [place] 4:[address] [facility] REPOSITORY TYPE CODE TESTS RESULT OUT OF RANGE REFERENCE UNITS LAB L501.080 70-110 mg/dL Normal BEDSIDE GLU 106 Result Comment: MANAGEMENT OF PATIENT CARE PER NURSING PROTOCOL Performed By: #### L501.080 #### [facility] Point of Care [address] [place] [address] BEDSIDE GLUCOSE Collected: 06/24/2017 Status: F Source: [place] 10:[address] [facility] REPOSITORY TYPE CODE TESTS RESULT OUT OF REFERENCE UNITS RANGE LAB L501.080 70-110 mg/dL High BEDSIDE GLU 167 Result Comment: MANAGEMENT OF PATIENT CARE PER NURSING PROTOCOL Performed By: #### L501.080 #### [facility] Point of Care [address] [place] [address] BEDSIDE GLUCOSE Collected: 06/24/2017 Status: F Source: [place] 6:[address] [facility] REPOSITORY TYPE CODE TESTS RESULT OUT OF REFERENCE UNITS RANGE LAB L501.080 70-110 mg/dL High BEDSIDE GLU 153 Result Comment: MANAGEMENT OF PATIENT CARE PER NURSING PROTOCOL Performed By: #### L501.080 #### [facility] Point of Care [address] [place] [address] BEDSIDE GLUCOSE Collected: 06/23/2017 Status: F Source: [place] 9:[address] [facility] REPOSITORY TYPE CODE TESTS RESULT OUT OF REFERENCE UNITS RANGE LAB L501.080 70-110 mg/dL High BEDSIDE GLU 238 Result Comment: MANAGEMENT OF PATIENT CARE PER NURSING PROTOCOL Performed By: #### L501.080 #### [facility] Point of Care [address] [place] [address] BEDSIDE GLUCOSE Collected: 06/23/2017 Status: F Source: [place] 5:[address] [facility] REPOSITORY TYPE CODE TESTS RESULT OUT OF REFERENCE UNITS RANGE LAB L501.080 70-110 mg/dL High BEDSIDE GLU 141 Result Comment: Dr Villela Followed MANAGEMENT OF PATIENT CARE PER NURSING PROTOCOL Performed By: #### L501.080 #### [facility] Point of Care [address] [place] [address] BEDSIDE GLUCOSE Collected: 06/23/2017 Status: F Source: [place] 11:[address] [facility] REPOSITORY TYPE CODE TESTS RESULT OUT OF REFERENCE UNITS RANGE LAB L501.080 70-110 mg/dL High BEDSIDE GLU 374 Result Comment: MANAGEMENT OF PATIENT CARE PER NURSING PROTOCOL Performed By: #### L501.080 #### [facility] Point of Care [address] [place] [address] BEDSIDE GLUCOSE Collected: 06/23/2017 Status: F Source: [place] 6:[address] [facility] REPOSITORY TYPE CODE TESTS RESULT OUT OF REFERENCE UNITS RANGE LAB L501.080 70-110 mg/dL High BEDSIDE GLU 151 Result Comment: MANAGEMENT OF PATIENT CARE PER NURSING PROTOCOL Performed By: #### L501.080 #### [facility] Point of Care [address] [place] [address] BEDSIDE GLUCOSE Collected: 06/22/2017 Status: F Source: [place] 8:[address] [facility] REPOSITORY TYPE CODE TESTS RESULT OUT OF REFERENCE UNITS RANGE LAB L501.080 70-110 mg/dL High BEDSIDE GLU 194 Result Comment: MANAGEMENT OF PATIENT CARE PER NURSING PROTOCOL Performed By: #### L501.080 #### [facility] Point of Care [address] [place] [address] BEDSIDE GLUCOSE Collected: 06/22/2017 Status: F Source: [place] 4:[address] [facility] REPOSITORY TYPE CODE TESTS RESULT OUT OF REFERENCE UNITS RANGE LAB L501.080 70-110 mg/dL High BEDSIDE GLU 145 Result Comment: Dr Orders Followed MANAGEMENT OF PATIENT CARE PER NURSING PROTOCOL Performed By: #### L501.080 #### [facility] Point of Care [address] [place] [address] BEDSIDE GLUCOSE Collected: 06/22/2017 Status: F Source: [place] 3:[address] [facility] REPOSITORY TYPE CODE TESTS RESULT OUT OF RANGE REFERENCE UNITS LAB L501.080 70-110 mg/dL Normal BEDSIDE GLU 91 Result Comment: Dr Orders Followed MANAGEMENT OF PATIENT CARE PER NURSING PROTOCOL Performed By: #### L501.080 #### [facility] Point of Care [address] [place] [address] BEDSIDE GLUCOSE Collected: 06/22/2017 Status: F Source: [place] 11:[address] [facility] REPOSITORY TYPE CODE TESTS RESULT OUT OF REFERENCE UNITS RANGE LAB L501.080 70-110 mg/dL High BEDSIDE GLU 153 Result Comment: MANAGEMENT OF PATIENT CARE PER NURSING PROTOCOL Performed By: #### L501.080 #### [facility] Point of Care [address] [place] [address] BEDSIDE GLUCOSE Collected: 06/22/2017 Status: F Source: [place] 6:[address] [facility] REPOSITORY TYPE CODE TESTS RESULT OUT OF REFERENCE UNITS RANGE LAB L501.080 70-110 mg/dL High BEDSIDE GLU 279 Result Comment: MANAGEMENT OF PATIENT CARE PER NURSING PROTOCOL Performed By: #### L501.080 #### [facility] Point of Care [address] [place] [address] BEDSIDE GLUCOSE Collected: 06/21/2017 Status: F Source: [place] 9:[address] [facility] REPOSITORY TYPE CODE TESTS RESULT OUT OF REFERENCE UNITS RANGE LAB L501.080 70-110 mg/dL High BEDSIDE GLU 366 Result Comment: MANAGEMENT OF PATIENT CARE PER NURSING PROTOCOL Performed By: #### L501.080 #### [facility] Point of Care [address] [place] [address] BEDSIDE GLUCOSE Collected: 06/21/2017 Status: F Source: [place] 5:[address] [facility] REPOSITORY TYPE CODE TESTS RESULT OUT OF REFERENCE UNITS RANGE LAB L501.080 70-110 mg/dL High BEDSIDE GLU 241 Result Comment: MANAGEMENT OF PATIENT CARE PER NURSING PROTOCOL Performed By: #### L501.080 #### [facility] Point of Care [address] [place] [address] BEDSIDE GLUCOSE Collected: 06/21/2017 Status: F Source: [place] 3:[address] [facility] REPOSITORY TYPE CODE TESTS RESULT OUT OF REFERENCE UNITS RANGE LAB L501.080 70-110 mg/dL High BEDSIDE GLU 278 Result Comment: MANAGEMENT OF PATIENT CARE PER NURSING PROTOCOL Performed By: #### L501.080 #### [facility] Point of Care [address] [place] [address] 12 LEAD ELECTROCARDIOGRAM Observed: 06/21/2017 Status: F Source: [place] 11:[address] [facility] REPOSITORY [facility] Cardiovascular Services [address] [place] [address] 12 Lead EKG 06/13/17 0925 MR#: [id number] Acct: [id number] Name: LISA SEAY Rep #: [id number] : 1945 71 From: Trenton Prescott MD Attending Dr: Con Hernandez DO Status: DIS IN Ordering Dr: Ovi Willson MD Date: 06/13/17 Location: [facility] [place] Sex: F C Admitted: 06/11/17 Test Reason : PREOP Blood Pressure : / mmHG Vent. Rate : 068 BPM Atrial Rate : 068 BPM P-R Int : 178 ms QRS Dur : 084 ms QT Int : 410 ms P-R-T Axes : 032 -25 172 degrees QTc Int : 435 ms Sinus rhythm with Premature atrial complexes in a pattern of bigeminy Left ventricular hypertrophy with repolarization abnormality Abnormal ECG Confirmed by TRENTON PRESCOTT MD ([id number]), supervising editor news reel KRISTEN RUBI ([id number]) on 06/21/2017 11:58:56 AM Referred By: Ivanna Magana Confirmed By:TRENTON PRESCOTT MD 06/21/17 1159 Date Trenton Prescott MD CC: Con Johnson MD Signed BEDSIDE GLUCOSE Collected: 06/21/2017 Status: F Source: [place] 11:[address] [facility] REPOSITORY TYPE CODE TESTS RESULT OUT OF REFERENCE UNITS RANGE LAB L501.080 70-110 mg/dL High BEDSIDE GLU 204 Result Comment: MANAGEMENT OF PATIENT CARE PER NURSING PROTOCOL Performed By: #### L501.080 #### [facility] Point of Care [address] [place], [place] [address] BASIC METABOLIC Collected: 06/21/2017 Status: F Source: [place] PROFILE (BMP) 6:[address] [facility] REPOSITORY Order Comment: SPECIMEN OBTAINED FROM LINE DRAW TYPE CODE TESTS RESULT OUT OF RANGE REFERENCE UNITS LAB L501.0100 70-110 mg/dL High GLU 142 Result Comment: Fasting Glucose result greater than or equal to 126 mg/dL suggests DIABETES MELLITUS per A.D.A. criteria. LAB L501.1000 7-18 mg/dL High BUN 27 LAB L501.1100 0.55-1.02 mg/dL High CREAT,SERUM 1.35 Result Comment: The validity of the calculated GFR AND GFRAA in patients over 70 years has not been determined. Clinical correlation is essential. LAB L501.1110 >60 mL/min Low EST GFR 41 Result Comment: Non- GFR Calc LAB L501.1115 >60 mL/min Low EST GFR - AA 50 Result Comment: GFR Calc LAB L501.1255 ml/min Normal Estimated CRCL 33.48 LAB L501.1300 10-20 RATIO Normal BUN/CRE 20.0 LAB L501.2200 8.5-10 mg/dL Normal .1 CA 8.8 LAB L501.5300 136-14 mmol/L Normal 5 NA 142 LAB L501.5600 3.5-5. mmol/L Normal 1 K 4.2 LAB L501.5900 98-107 mmol/L Normal CL 107 LAB L501.6100 21.0-3 mmol/L Normal 2.0 CO2 27.0 LAB L501.6200 5-15 Normal GAP 8 Performed By: #### L500.2500 #### [facility] [address] [place], [address] CBC W/DIFF, AUTOMATED Collected: 06/21/2017 Status: F Source: [place] 6:[address] [facility] REPOSITORY Order Comment: SPECIMEN OBTAINED FROM LINE DRAW TYPE CODE TESTS RESULT OUT OF RANGE REFERENCE UNITS LAB L100.1000 4.4-11.0 K/mm3 Normal WBC 6.5 LAB L100.1200 4.2-5.4 M/mm3 Low RBC 3.59 LAB L100.1300 12.0-15.0 g/dl Low HGB 9.4 LAB L100.1400 37-47 % Low HCT 30.2 LAB L100.1500 81-99 fL Normal MCV 84.1 LAB L100.1600 27.0-32.0 pg Low MCH 26.2 LAB L100.1700 32-36 g/gl Low MCHC 31.1 LAB L100.1810 11.6-14.6 % High RDW CV 15.5 LAB L100.1820 35.1-43.9 fl High RDW SD 48.0 LAB L100.1900 150-450 K/mm3 Normal PLT 227 LAB L100.2000 6.2-12.0 fl Normal MPV 8.7 LAB L100.2100 47-70 % Normal NEUT% 53.4 LAB L100.2200 19-41 % Normal LY% 28.7 LAB L100.2300 0-10 % High MONO% 11.7 LAB L100.2400 0-5 % High EO% 5.7 LAB L100.2500 0-1 % Normal BASO% 0.2 LAB L100.2550 0.0-0.9 % Normal IM GRAN % 0.300 Result Comment: IG% - Immature Granulocytes (promyelocytes, myelocytes and metamyelocytes) > 1% indicates that a LEFT SHIFT is Present. LAB L100.2620 2.0-7.7 X10 3/uL Normal Absolute Neut 3.5 LAB L100.2720 0.83-4.51 X10 3/ul Normal Absolute Lymph 1.87 Performed By: #### L100.0100 #### [facility] [address] [place], [address] BEDSIDE GLUCOSE Collected: 06/21/2017 Status: F Source: [place] 6:[address] [facility] REPOSITORY TYPE CODE TESTS RESULT OUT OF REFERENCE UNITS RANGE LAB L501.080 70-110 mg/dL High BEDSIDE GLU 140 Result Comment: MANAGEMENT OF PATIENT CARE PER NURSING PROTOCOL Performed By: #### L501.080 #### [facility] Point of Care [address] [place] [address] BEDSIDE GLUCOSE Collected: 06/20/2017 Status: F Source: [place] 11:[address] [facility] REPOSITORY TYPE CODE TESTS RESULT OUT OF REFERENCE UNITS RANGE LAB L501.080 70-110 mg/dL High BEDSIDE GLU 321 Result Comment: MANAGEMENT OF PATIENT CARE PER NURSING PROTOCOL Performed By: #### L501.080 #### [facility] Point of Care [address] [facility] [place] [address] HISTORY AND PHYSICAL Observed: 06/20/2017 Status: F Source: [place] EXAM 10:[address] [facility] REPOSITORY [facility] Medical Records Department [address] [facility] [place] [address] History and Physical 06/20/17 2107 MR#: [id number] Acct: [id number] Name: LISA SEAY Rep #: [id number] : 1945 72 From: Adolfo Rush MD PCP: Con Johnson MD Status: ADM IN Location: [place] [address] Problem List (1) Stroke Status: Chronic (2) Peripheral arterial occlusive disease Status: Chronic (3) Ulcer at the right metatarsal head Status: Acute (4) Abscess of right foot Status: Acute (5) C. difficile colitis Status: Chronic (6) Diabetes mellitus Status: Chronic (7) Osteomyelitis of right foot Status: Acute (8) Diabetes mellitus with polyneuropathy Status: Chronic Qualifiers: (9) Hypertension Status: Chronic Qualifiers: (10) Chronic pain Status: Chronic Qualifiers: (11) Fatty liver Status: Chronic (12) Hyperlipidemia Status: Chronic Qualifiers: (13) Coronary artery disease Status: Chronic Qualifiers: (14) Hypothyroidism Status: Chronic Qualifiers: (15) Iron deficiency anemia Status: Chronic Qualifiers: (16) GERD (gastroesophageal reflux disease) Status: Chronic Qualifiers: (17) Vitamin D deficiency Status: Chronic (18) Insomnia Status: Chronic Qualifiers: History of Present Illness Date of Admission: 06/20/17 Chief Complaint: Here for rehabilitation, strengthening, prior to discharge home with spouse. The patient is a 72 year old Female with below past medical history with followin06/11/2017 Direct admit to hospital from Dr. Magana's office for right foot ulcer, right foot cellulitis. Blood cultures x 2, wound cultures done. IV Vancomycin, IV Flagyl. 06/11/2017 Doppler of legs negative for DVT. 06/12/2017 MRI right midfoot showed osteomyelitis 3rd metatarsal head, soft tissue abscess distal third metatarsal head. Patient underwent surgical incision and drainage per Dr. Magana. 06/13/2017 Dr. Webb consulted, cultures growing staph, strep. Continue Vancomycin, Zosyn. 06/18/2017 Dr. Magana perfromed right transmetatarsal amputation. Cultures grew strep agalactiae A, strep mitis, staph aureus. Dr. Webb recommended Augmentin. 06/20/2017 Admit to TCU for rehabilitation, strengthening, prior to discharge home with spouse. Past Medical History Past Medical History (Chronic Problems): Chronic Problems (Last Updated 06/07/17 @ 16:07 by Madison Alicea) Stroke (Chronic) Peripheral arterial occlusive disease (Chronic) Stented coronary artery (Chronic) PTCA and YASIR to proximal and distal CX per Dr. Hatfield 12/21/2014; History of left heart catheterization (Chronic) CABG X 3 vessels [facility]:DANIEL to LAD, reverse SVG to dx and to 2nd OM per Dr. Borjas @ [facility] 09/09/2014; PTCA andDES to proximal and distal CX per Dr. Hatfield 12/21/2014; History of coronary artery bypass graft (Chronic) CABG X 3 vessels [facility]:DANIEL to LAD, reverse SVG to dx and to 2nd OM per Dr. Borjas @ [facility] 09/09/2014 Atherosclerotic heart disease of [place] coronary artery without angina pectoris (Chronic) CABG X 3 vessels [facility]:DANIEL to LAD, reverse SVG to dx and to 2nd OM per Dr. Borjas @ [facility] 09/09/2014; PTCA and YASIR to proximal and distal CX per Dr. Hatfield 12/21/2014; C. 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) Carotid artery disease (Chronic) Xerosis of skin (Chronic) Malnutrition (Chronic) Ulcer of right foot with fat layer exposed (Chronic) Diabetes mellitus with polyneuropathy (Chronic) Peripheral vascular disease (Chronic) History of stroke (Chronic) Hypertension (Chronic) Obesity (Chronic) Diabetes mellitus type II (Chronic) Chronic pain (Chronic) Fatty liver (Chronic) Hyperlipidemia (Chronic) Coronary artery disease (Chronic) Hypothyroidism (Chronic) Iron deficiency anemia (Chronic) GERD (gastroesophageal reflux disease) (Chronic) Vitamin D deficiency (Chronic) Insomnia (Chronic) Allergies Penicillins Allergy (Severe, Verified 06/07/17 15:35) Unknown atorvastatin calcium [From Lipitor] Allergy (Verified 03/10/17 21:12) Unknown bupropion HCl [From Wellbutrin] Allergy (Verified 03/10/17 21:12) Unknown mannitol [From Reclast] Allergy (Verified 03/10/17 21:12) joint pain, unable to breathe, unable to walk propoxyphene napsylate [From Darvocet-N 100] Allergy (Verified 03/10/17 21:12) Unknown Quinolones Allergy (Verified 03/10/17 21:12) Unknown Tetanus Vaccines and Toxoid [Tetanus Vaccines AND Toxoid] Allergy (Verified 03/10/17 21:12) Chest tightness tizanidine Allergy (Verified 03/10/17 21:12) Unknown water for injection,sterile [From Reclast] Allergy (Verified 03/10/17 21:12) joint pain, unable to breathe, unable to walk JOINT PAIN,UNABLE TO BREATHE,UNABLE TO WALK zoledronic acid [From Reclast] Allergy (Verified 03/10/17 21:12) joint pain,unable to breathe, unaable to walk JOINT PAIN,UNABLE TO BREATHE,UNABLE TO WALK pravastatin Adverse Reaction (Severe, Verified 06/07/17 15:36) Myalgias gemfibrozil Adverse Reaction (Intermediate, Verified 06/07/17 15:36) Unknown NSAIDS (Non-Steroidal Anti-Inflamma Adverse Reaction (Verified 03/10/17 21:12) Other Home Medications: Ambulatory Orders Medication Instructions Recorded Aspirin [Aspirin, Baby] 81 mg PO DAILY@0800 03/10/17 Clobetasol Propionate/Emoll 1 applic TP BID 03/10/17 [Clobetasol Emollient 0.05% Crm] Surgical History: appendectomy, coronary bypass surgery, gastric bypass, tonsillectomy, - - Cardiac stent, , Carpal tunnel release, 3rd toe amputation, carotid endarterectomy, right foot 5th ray amputation, right foot transmetatarsal amputation. 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 Lives: Spouse/ Significant Other Smoking Status: Never smoker Tobacco Use: Non-smoker Alcohol: None Drugs: None - *Family History Paternal Family History: Family History (Last Updated 06/13/17 @ 16:50 by CLIFFORD Burris) Mother Cancer CVA (cerebral vascular accident) CAD (coronary artery disease) Father CAD (coronary artery disease) History of coronary artery bypass graft Sister CAD (coronary artery disease) Multiple sclerosis History Items: No pertinent history Maternal Family History: Family History (Last Updated 06/13/17 @ 16:50 by ADDISON BurrisC) Mother Cancer CVA (cerebral vascular accident) CAD (coronary artery disease) Father CAD (coronary artery disease) History of coronary artery bypass graft Sister CAD (coronary artery disease) Multiple sclerosis History Items: No pertinent history Review of Systems Constitutional: Denies: Chills, Fever, Weight Change HEENT: Denies: Head Aches, Sinus Congestion, Sinus Drainage Cardiovascular: Denies: Chest Pain, Palpitations Respiratory: Denies: Cough, Shortness of breath at rest, Sputum production Gastrointestinal: Denies: Abdominal Pain, Nausea, Vomiting Genitourinary: Denies: Dysuria Musculoskeletal: Reports: Foot Pain - Right., Muscle pain. Denies: Joint Pain, Joint Tenderness Skin: Denies: Rash, Wounds Neurological: Denies: Numbness, Tingling, Focal weakness Psychiatric: Denies: Anxiety, Depression, Homicidal Ideations, Suicidal Ideations Hematologic/ Lymphatic: Denies: Easy Bruising, Easy Bleeding VTE Information - Inpt Only VTE Present on Admission: No VTE Mechan Device Prophylaxis: Knee High MINDY Hose VTE Pharm Prophylaxis ordered?: Yes - Physical Exam General: Alert, Oriented x3, Cooperative HEENT: Atraumatic, PERRLA, EOMI, Normocephalic Neck: Supple, No JVD, Negative Carotid Bruits Lungs: Clear to auscultation, Normal air movement Cardiovascular: Regular rate, No murmurs Abdomen: Bowel Sounds Present, Soft, Non Tender Extremities: No edema, Capillary Refill Less than 3 Seconds, - - Right foot wrapped in dressing, PICC line right upper extremity. Skin: No rashes, No breakdown Musculoskeletal: No Tenderness to Palpation of Joints or Extremities, Muscle Wasting Neurological: Cranial nerves II-XII grossly intact Psych/Mental Status: Normal Affect, Appropriate Vital Signs Temp Pulse Resp BP Pulse Ox 98.0 F 88 20 H 143/61 H 96 06/20/17 16:47 06/20/17 16:47 06/20/17 16:47 06/20/17 16:47 06/20/17 16:47 Oxygen Delivery Method Room Air Weight: 86.1 kg Body Mass Index (BMI) 32.5 Finger Stick Blood Glucose 193 Intake and Output for Last 24 Hours Intake Total 240 / 240 Balance 240 / 240 POC Glucose POC Glucose 290 H 86 Assessment/Plan 72 year old female with below past medical history hospitalized for right foot ulcer, right foot osteomyelitis, underwent right foot transmetatarsal amputation per Dr. Magana 06/18/2017, admitted to TCU for rehabilitation, strengthening, prior to discharge home with spouse. * Debility - PT/OT. * Pain - Tylenol 1000MG Q8H PRN mild pain, Oxycontin 20MG BID, Oxycodone 10MG Q4H PRN severe pain, Lidoderm patch 1 patch daily. * Bowel - resident has diarrhea. * Pneumonia vaccination - Administer Prevnar 13 and/or Pneumovax 23 as necessary. * DVT prophylaxis - Lovenox 40MG SC daily. * Hypertension - Metoprolol 50MG BID, Amlodipine 5MG QHS. * Right foot osteomyelitis status post transmetatarsal amputation - Augmentin 875MG BID, stop date per Dr. Webb, Dr. Magana following. * Coronary Artery Disease - Metoprolol 50MG BID, Imdur 30MG TID, Plavix 75MG daily, Aspirin 81MG daily, NTG 0.4MG SL Q5M PRN chest pain. * GERD - Pantoprazole 40MG daily, TUMS 500MG Q4H PRN. * Diarrhea - Questran 4GM daily, BID PRN, Loperamide 2MG Q6H PRN. * Dermatitis - Temovate topically BID. * Muscle spasm - Baclofen 10MG TID, Diazepam 2MG TID. * Osteoarthritis - Diclofenac transderm TID. * Vitamin D deficiency - D2 50,000 units per week. * Iron deficiency anemia - Ferrous sulfate 300MG BIDCM. * Neuropathic pain - Gabapentin 300MG QHS. * Nutrition - Glucerna shake 120ML PO TID, Blue 1 packet BID. * Diabetes Mellitus II - Levemir 20 units QAM, 30 units Qdinner, Novolog 20 units TIDAC. * C. Diff prophylaxis - Lactobacillus 1 tablet TID. * Hypothyroidism - Levothyroxine 75MG daily. * Hypomagnesemia - Mag Oxide 400MG dinner. * Insomnia - Melatonin 10MG QHS. * Skin irritation - Calmoseptine 4x/day buttocks. * Hyperlipidemia - Pravastatin 40MG QHS. * Nausea - Phenergan 25MG BID PRN. 06/20/172139 <Electronically signed by Adolfo Rush MD> Date [facility]fo Rush [facility] Signature: Date (if applicable) CC: Con Johnson MD; Adolfo Rush MD Signed BEDSIDE GLUCOSE Collected: 06/20/2017 Status: F Source: [place] 8:[address] [facility] REPOSITORY TYPE CODE TESTS RESULT OUT OF REFERENCE UNITS RANGE LAB L501.080 70-110 mg/dL High BEDSIDE GLU 290 Result Comment: Dr Villela Followed MANAGEMENT OF PATIENT CARE PER NURSING PROTOCOL Performed By: #### L501.080 #### [facility] Point of Care [address] [place], [place] [address] BEDSIDE GLUCOSE Collected: 06/20/2017 Status: F Source: [place] 4:[address] [facility] REPOSITORY TYPE CODE TESTS RESULT OUT OF RANGE REFERENCE UNITS LAB L501.080 70-110 mg/dL Normal BEDSIDE GLU 86 Result Comment: MANAGEMENT OF PATIENT CARE PER NURSING PROTOCOL Performed By: #### L501.080 #### [facility] Point of Care [address] [place] [address] DISCHARGE SUMMARY Observed: 06/20/2017 Status: F Source: [place] 3:[address] [facility] REPOSITORY [facility] Medical Records Department [address] [place] [address] Discharge Summary 06/20/17 1517 MR#: [id number] Acct: [id number] Name: LISA SEAY Rep #: [id number] : 1945 72 From: Con Hernandez DO PCP: Con Johnson MD Status: ADM IN Y Location: [place] [address] Discharge Date and Diagnosis - Problem List Patient Problems: Active and Suspected Problems (Last Updated 06/07/17 @ 16:07 by Madison Alicea) Ulcer at the right metatarsal head (Acute) Abscess of right foot (Acute) Date of Admission: 06/11/17 Date of Discharge: 06/20/17 - Primary Discharge Diagnosis Active and Suspected Problems (Last Updated 06/07/17 @ 16:07 by Madison Alicea) Ulcer at the right metatarsal head (Acute) Abscess of right foot (Acute) - Secondary Discharge Diagnosis Chronic Problems (Last Updated 06/07/17 @ 16:07 by Madison Alicea) Stented coronary artery (Chronic) PTCA and YASIR to proximal and distal CX per Dr. Hatfield 12/21/2014; History of left heart catheterization (Chronic) CABG X 3 vessels [facility]:DANIEL to LAD, reverse SVG to dx and to 2nd OM per Dr. Borjas @ [facility] 09/09/2014; PTCA andDES to proximal and distal CX per Dr. Hatfield 12/21/2014; History of coronary artery bypass graft (Chronic) CABG X 3 vessels [facility]:DANIEL to LAD, reverse SVG to dx and to 2nd OM per Dr. Borjas @ [facility] 09/09/2014 Atherosclerotic heart disease of [place] coronary artery without angina pectoris (Chronic) CABG X 3 vessels [facility]:DANIEL to LAD, reverse SVG to dx and to 2nd OM per Dr. Borjas @ [facility] 09/09/2014; PTCA and YASIR to proximal and distal CX per Dr. 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) Carotid artery disease (Chronic) Xerosis of skin (Chronic) Malnutrition (Chronic) Ulcer of right foot with fat layer exposed (Chronic) Diabetes mellitus with polyneuropathy (Chronic) Peripheral vascular disease (Chronic) History of stroke (Chronic) Hypertension (Chronic) Obesity (Chronic) Diabetes mellitus type II (Chronic) Chronic pain (Chronic) Fatty liver (Chronic) Hyperlipidemia (Chronic) Coronary artery disease (Chronic) Hypothyroidism (Chronic) Iron deficiency anemia (Chronic) GERD (gastroesophageal reflux disease) (Chronic) Vitamin D deficiency (Chronic) Insomnia (Chronic) Hospital Course and Treatment Imaging Results: Clinical Impression(s) from Imaging Studies Lower Extremity MRI 06/12/17 15:22 IMPRESSION: Status post resection fifth phalanges, distal aspect fifth metatarsal, third phalanges Osteomyelitis third metatarsal head Suggestion of chronic osseous erosion of the fourth metatarsal head Soft tissue abscess formation just distal to the third metatarsal Electronically Signed: Emory Rivero MD at 21:42 EST Tel , Service support , Foot X-Ray 06/13/17 15:00 IMPRESSION: Transmetatarsal dilatation of the third and fifth toes. Electronically Signed: Richard Vega DO at 19:02 EST Tel [phone], Service support , Foot X-Ray 06/13/17 18:06 IMPRESSION: 1. Postoperative change from third digit transmetatarsal amputation 2. Mild to moderate first metatarsophalangeal joint and interphalangeal joint osteoarthritic change. Electronically Signed: Sukumar Gomez MD at 2:59 EST Tel , Service support , Foot X-Ray 06/18/17 15:45 IMPRESSION: Status post transmetatarsal amputation. Postoperative soft tissue changes. Electronically Signed: Delvin Morton MD at 13:33 EST Tel [phone], Service support , Foot X-Ray 06/19/17 08:09 IMPRESSION: Interval transmetatarsal amputations of all 5 digits. Soft tissue swelling. No acute fractures or erosive lesions are seen. Electronically Signed: Lucas Campoverde MD at 5:46 EST Tel , Service support , Consultations 06/11/17 19:18 Consult: Onc/Wound/cushion cover inspector Routine Comment: Reason for Consult:: right non-healing foot wound Adam Hobson Operations: - - Debridement of necrotic, non-viable, infected soft tissue of the right foot and resection of 3rd metatarsal head. right transmetatarsal amputation Summary of Care Provided: The patient is a 72 year old F with ulcer at the right metatarsal head. An MRI of ostium mellitus of the third metatarsal head. Patient is underwent debridements of necrotic nonviable infected soft tissue of the right foot and resection of the third metatarsal head. Further discussion with podiatry, the patient underwent a transmetatarsal amputation of the right foot performed by Dr. Magana on the . Cultures on the showed strep atelectasis A, strep mitis and staph aureus. Culture on the showed staph aureus. Cultures on were negative. Infectious disease recommendation was for Augmentin. [] Discharge Diet: 1800 Calorie Control Diet Discharge Activity: Return to Normal Activity Home Medications: Medications to take at Discharge Aspirin [Aspirin, Baby] 81 mg PO DAILY@0800 03/10/17 Blood-Glucose Meter [Accu-Chek Desiree Connect] 1 each MC BID 03/10/17 Clobetasol Propionate/Emoll [Clobetasol Emollient 0.05% Crm] 1 applic TP BID 03/10/17 Clopidogrel Bisulfate [Plavix] 75 mg PO DAILY 03/10/17 Diclofenac Sodium 1 applic TRANSDERM. TID 03/10/17 Ergocalciferol [Vitamin D] 50,000 unit PO Q7D 03/10/17 Levothyroxine Sodium [Levoxyl] 75 mcg PO QHS 03/10/17 Metoprolol Tartrate [Lopressor (beta fina)] 50 mg PO BID 03/10/17 Morphine Sulfate 2.5 - 5 mg PO Q4H PRN PRN 03/10/17 Nitroglycerin [Nitrostat] 0.4 mg SUBLINGUAL Q5M PRN 03/10/17 Pantoprazole Sodium [Protonix] 40 mg PO DAILY 03/10/17 Pravastatin Sodium 40 mg PO DAILY 03/10/17 Menthol/Lanolin/Calamine/Znox [Calmoseptine Ointment] 1 applic TOPICAL DAILY 03/11/17 insulin aspart 100 unit/mL subcutaneous pen 20 unit SC TIDAC ml 06/07/17 isosorbide mononitrate ER 30 mg tablet,extended release 24 hr 30 mg PO BID tab 06/07/17 Amlodipine Besylate [Norvasc] 5 mg PO QHS 06/11/17 Calcium Carbonate [Tums] 500 mg PO Q4H PRN PRN 06/11/17 Cholestyramine (with Sugar) [Cholestyramine Packet] 4 gm PO DAILY 06/11/17 Ferrous Sulfate Syrup 300 mg PO BIDCM 06/11/17 Gabapentin [Neurontin] 300 mg PO QHS 06/11/17 Magnesium Oxide 400 mg PO DINNER 06/11/17 Melatonin 10 mg PO QHS PRN PRN 06/11/17 Promethazine HCl 25 mg PO BID PRN PRN 06/11/17 Cholestyramine/Aspartame [Cholestyramine Light Packet] 4 gm PO BID PRN 06/15/17 Acetaminophen [Tylenol Tablet] 650 mg PO Q6H PRN PRN tablet 06/20/17 Cyclobenzaprine [Flexeril] 10 mg PO TID PRN PRN tablet 06/20/17 Diazepam [Valium] 2 mg PO TID PRN PRN #6 tab 06/20/17 Enoxaparin [Lovenox] 40 mg SC DAILY@0600 syringe 06/20/17 Insulin Detemir [Levemir FlexPen] 20 units SC BREAKFAST insuln.pen 06/20/17 Insulin Detemir [Levemir FlexPen] 30 units SC DINNER insuln.pen 06/20/17 Lactobacillus Acidophilus [Acidophilus] 1 tablet PO TID tablet 06/20/17 Lidocaine [Lidoderm Patch] 1 patch TOPICAL DAILY patch 06/20/17 Loperamide [Imodium] 2 mg PO Q6H PRN PRN capsule 06/20/17 Oxycodone CR [Oxycontin] 20 mg PO BID #4 tab 06/20/17 Oxycodone [Oxyir] 5 - 10 mg PO Q4H PRN PRN #12 tab 06/20/17 Following Prescrptions Were Given to Patient: Oxycodone [Oxyir] 5 - 10 mg PO Q4H PRN PRN #12 tab PRN Reason: Moderate Pain (pain scale 4-5) Diazepam [Valium] 2 mg PO TID PRN PRN #6 tab PRN Reason: Muscle Spasm Oxycodone CR [Oxycontin] 20 mg PO BID #4 tab Primary Care Physician: Con Johnson MD [Primary Care Provider] - Please Follow Up With: Stevenson Padgett DPM When: 1-2 weeks Disposition: [facility] facility Minutes spent on discharge:: 35 Patient Condition:: Good Meaningful Use Info Meaningful Use Diagnoses (Choose all that apply): None applicable Code Visit Inpatient E AND M: 95434 Disch Hosp 06/20/17 1523 <Electronically signed by Con Hernandez DO> Date Con Hernandez DO Cosigner Signature (if applicable): Date CC: Con Hernandez DO; Con Johnson MD Signed TRANSFER TO EXTENDED Observed: 06/20/2017 Status: F Source: [facility] 3:[address] [facility] REPOSITORY [facility] Medical Records Department [address] [place] [address] Transfer to Extended Care MR#: [id number] Acct: [id number] Name: LISA SEAY Rep #: [id number] : 1945 72 From: Con Hernandez DO PCP: Con Johnson MD Status: ADM IN LISA SEAY [id number] (Patient) (Health Ins. Claim No.) (Day of Discharge to Facility) Certification of patient admission REQUIRED AT TIME OF ADMISSION. I CERTIFY THAT POST-HOSPITAL ECF SERVICES ARE REQUIRED TO BE GIVEN ON AN IN-PATIENT BASIS BECAUSE OF THE ABOVE NAMED PATIENT'S NEED FOR PENITENTIARY CARE ON A CONTINUING BASIS FOR THE CONDITION(S) FOR WHICH HE/SHE WAS RECEIVING IN-PATIENT HOSPITAL SERVICES PRIOR TO HIS/HER TRANSFER TO THE ECF. 06/20/17 1516 <Electronically signed by Con Hernandez DO> Date Con Hernandez DO - Diet 06/15/17 11:59 Diet: Calorie Controlled Is pt able to select menu?: Yes Diet Comments: vegetables and salads need to be shreaded. How many daily calories?: 1800 calorie - Routine Orders/Code Status Routine Lab Work: CBC, BMP Code Status: Full Code - Wound(s) Right plantar sole Wound Type: Neuropathic/Diabetic Foot Ulcer Dressing Change: AntiMicrobial (Aquacel AG, etc) RLE Wound Type: Surgical Incision Dressing Change: 4x4s/ ABD/ Kerlix/ DALIA right foot Wound Type: Amputation - Therapies Weight Bearing: Non weight bearing Extremity Affected:: Right Lower Physical Therapy: Eval and Treat Occupational Therapy: Eval and Treat - Allergies/Procedures Done in Hospital Allergies/Adverse Reactions: Allergies Penicillins Allergy (Severe, Verified 06/07/17 15:35) Unknown atorvastatin calcium [From Lipitor] Allergy (Verified 03/10/17 21:12) Unknown bupropion HCl [From Wellbutrin] Allergy (Verified 03/10/17 21:12) Unknown mannitol [From Reclast] Allergy (Verified 03/10/17 21:12) joint pain, unable to breathe, unable to walk propoxyphene napsylate [From Darvocet-N 100] Allergy (Verified 03/10/17 21:12) Unknown Quinolones Allergy (Verified 03/10/17 21:12) Unknown Tetanus Vaccines and Toxoid [Tetanus Vaccines AND Toxoid] Allergy (Verified 03/10/17 21:12) Chest tightness tizanidine Allergy (Verified 03/10/17 21:12) Unknown water for injection,sterile [From Reclast] Allergy (Verified 03/10/17 21:12) joint pain, unable to breathe, unable to walk JOINT PAIN,UNABLE TO BREATHE,UNABLE TO WALK zoledronic acid [From Reclast] Allergy (Verified 03/10/17 21:12) joint pain,unable to breathe, unaable to walk JOINT PAIN,UNABLE TO BREATHE,UNABLE TO WALK pravastatin Adverse Reaction (Severe, Verified 06/07/17 15:36) Myalgias gemfibrozil Adverse Reaction (Intermediate, Verified 06/07/17 15:36) Unknown NSAIDS (Non-Steroidal Anti-Inflamma Adverse Reaction (Verified 03/10/17 21:12) Other - Type of Care/Length of Stay Estimated LOS: Convalescent Care Less Than 30 days Type of Care Needed: Skilled Rehab Potential: Fair Prognosis: Fair - Additional Orders/Day of Discharge Day of Discharge: 06/20/17 - Dietary and Speech Recommendations Dietitian Recommendations/Changes: Suggest diet change to 1800 daina carbohydrate-controlled, cardiac, mech soft diet as needed. Continue Blue 1 pkt BID. - Follow Up Care Primary Care Physician: Con Johnson MD [Primary Care Provider] - Please Follow Up With: Stevenson Padgett DPM When: 1-2 weeks 06/20/17 1516 <Electronically signed by Con Hernandez DO> Date Con Hernandez DO CC: Con Johnson MD; Ivanna Magana DPM; Adam Webb MD Signed Observed: 06/20/2017 Status: F Source: [place] CULTURE, BLOOD (WB) 12:[address] [facility] REPOSITORY Has pt arrived? Y BC No growth in 5 days. Performed By: #### M200.1000 #### [facility] [place], [address] Observed: 06/20/2017 Status: F Source: [place] CULTURE, BLOOD (WB) 12:[address] [facility] REPOSITORY Has pt arrived? Y BC No growth in 5 days. Performed By: #### M200.1000 #### [facility] [address] [place], [address] BEDSIDE GLUCOSE Collected: 06/20/2017 Status: F Source: [place] 11:[address] [facility] REPOSITORY TYPE CODE TESTS RESULT OUT OF REFERENCE UNITS RANGE LAB L501.080 70-110 mg/dL High BEDSIDE GLU 244 Result Comment: MANAGEMENT OF PATIENT CARE PER NURSING PROTOCOL Performed By: #### L501.080 #### [facility] Point of Care [address] [place] [address] BEDSIDE GLUCOSE Collected: 06/20/2017 Status: F Source: [place] 6:[address] [facility] REPOSITORY TYPE CODE TESTS RESULT OUT OF REFERENCE UNITS RANGE LAB L501.080 70-110 mg/dL High BEDSIDE GLU 134 Result Comment: MANAGEMENT OF PATIENT CARE PER NURSING PROTOCOL Performed By: #### L501.080 #### [facility] Point of Care [address] [place] [address] BEDSIDE GLUCOSE Collected: 06/19/2017 Status: F Source: [place] 9:[address] [facility] REPOSITORY TYPE CODE TESTS RESULT OUT OF REFERENCE UNITS RANGE LAB L501.080 70-110 mg/dL High BEDSIDE GLU 135 Result Comment: MANAGEMENT OF PATIENT CARE PER NURSING PROTOCOL Performed By: #### L501.080 #### [facility] Point of Care [address] [place] [address] BEDSIDE GLUCOSE Collected: 06/19/2017 Status: F Source: [place] 4:[address] [facility] REPOSITORY TYPE CODE TESTS RESULT OUT OF RANGE REFERENCE UNITS LAB L501.080 70-110 mg/dL Normal BEDSIDE GLU 87 Result Comment: MANAGEMENT OF PATIENT CARE PER NURSING PROTOCOL Performed By: #### L501.080 #### [facility] Point of Care [address] [place] [address] BEDSIDE GLUCOSE Collected: 06/19/2017 Status: F Source: [place] 11:[address] [facility] REPOSITORY TYPE CODE TESTS RESULT OUT OF REFERENCE UNITS RANGE LAB L501.080 70-110 mg/dL High BEDSIDE GLU 231 Result Comment: MANAGEMENT OF PATIENT CARE PER NURSING PROTOCOL Performed By: #### L501.080 #### [facility] Point of Care [address] [place] [address] AMPUTATION (CHOOSE Observed: 06/19/2017 Status: F Source: [facility]) 11:[address] [facility] REPOSITORY Patient: LISA SEAY : 1945 (72/F) Acct Num: [id number] Phys: David MACHUCA,Con Unit Num: [id number] Loc: MS2 [id number] Specimen: [id number] Received: 06/19/17 - 1546 Spec Type: Amputation TISSUES TISSUES: A. Right foot B. Bone of foot, NOS GROSS DESCRIPTION A - Received in fixative is one container labeled with the patient's name and designated soft tissue and bone, right foot. The specimen consists of 16 fragments of skin, bone and soft tissue. The largest fragment consists of three toes inclusive of great toe and partial transmetatarsal amputation. The largest fragment measures 9 x 9 x 3 cm. All three toes have intact nails. The dorsal surface displays a possible area of ulceration measuring 1 x 0.5 x 0.6 cm. The fragments free in container in aggregate measure 9 x 9 x 1 cm. An area of ulceration is present adjacent to the third toe. No other mass lesions or ulcers are identified. Fur Tanner sections are submitted in six cassettes as follows: 1 cutaneous dorsal ulcer, 2 bone adjacent to ulcer after decalcification, 3 skin and soft tissue and anterior margin of excision, 4 skin and soft tissue at the plantar margins of excision, 5 skin and soft tissue free in container, 6 termite control service representative section of bone free in container after decalcification. B - Received in fixative is one container labeled with the patient's name and designated clearance fragment. The specimen consists of a single irregular fragment of white-bolden bone measuring 0.7 x 0.5 x 0.2 cm. The specimen is submitted in its entirety in one cassette after decalcification. / AM:debbi TC:2 CPT: 10757, 32688, 78753 x2, 15437 x2 HEADER OPERATION: I AND D, foot excision metatarsal head third PRE-OP DIAGNOSIS: Ulceration with cellulitis, osteomyelitis, third metatarsal head right foot with ulceration TISSUE SUBMITTED: A Soft tissue and bone right foot, B Clearance fragment right foot MICROSCOPIC DESCRIPTION Slides are reviewed. MICROSCOPIC DIAGNOSIS A. Right foot, partial transmetatarsal amputation: Skin and soft tissue with ulceration and associated acute and chronic inflammation and granulation. Bone with chronic change. No evidence of acute osteomyelitis. Negative for acid-fast bacilli and fungal organisms. B. Clearance fragment bone, right foot, biopsy: Chronic change. No evidence of acute osteomyelitis. AM:debbi 06/26/17 Signed Quinton Domínguez 06/26/17 <signature on file> Performed By: #### PAMP #### [facility] [address] [place], [address] OPERATIVE REPORT Observed: 06/19/2017 Status: F Source: [place] 10:[address] [facility] REPOSITORY [facility] Medical Records Department [address] [place] [address] Operative Report 06/18/17 1741 MR#: [id number] Acct: [id number] Name: LISA SEAY Rep #: [id number] : 1945 72 From: Ivanna Magana DPM PCP: Con Johnson MD Status: ADM IN Y Location: [address] Problem List (1) Ulcer at the right metatarsal head Status: Acute (2) Abscess of right foot Status: Acute (3) Osteomyelitis of right foot Status: Acute Report of Operation Date of Procedure: 06/13/17 Pre-Operative Diagnosis: right foot infection. osteomyelitis rule out right 3rd metatarsal. chronic ulcer formation and forefoot deformities Post-Operative Diagnosis: right foot infection. osteomyelitis rule out right 3rd metatarsal. chronic ulcer formation and forefoot deformities Surgery/Procedure Performed:: right transmetatarsal amputation Description of Surgical Findings:: hemostasis: Well-padded pneumatic right thigh tourniquet, 300 mmHg Materials: 2-0 Vicryl, 2-0 nylon, 3-0 nylon Complications: None steel pan form placing supervisor: Stevenson Padgett - Type of Anesthesia:: Local MAC - preoperative: right ankle block injection of 10 mL of 1 % lidocaine plain and 0.5% marcaine typical fashion postoperative: right ankle block injection of 10 mL of 1 % lidocaine plain and 0.5% marcaine typical fashion Specimen's removed: right foot soft tissue and bone- pathology. 3rd metatarsal clearance fragment - pathology. 3rd metatarsal clearance fragment - microbiology (aerobic, anaerbic, acid fast, fungal) Drains: none Estimated Blood Loss (mL): 300 mL Description of Procedure: Indications: This 80-year-old female with multiple comorbidities including diabetic neuropathy, hypertension, dementia, obesity, history of anemia, GERD, history of kidney injury, and recurrent foot ulcers infections and surgeries. Recent presentation included a plantar right foot ulcer with abscess and suspected third metatarsal head osteomyelitis. Her ulcer site did probe directly to the metatarsal head and it was soft during her initial surgery of incision and drainage and third metatarsal head resection. Her initial foot x-ray was not diagnostic for osteomyelitis however her preoperative MRI did demonstrate increased intensity on T2 decreased intensity on T1 at this third metatarsal head site (osteomyelitis concern) with abscess formation that corresponded dorsal to the site and with the plantar ulcer site. Her culture results from her initial surgery was positive for staph aureus and the final result is pending. She did have leukocytosis at time of admission however this has resolved with her surgical intervention and IV antibiotics. She has had multiple toe and ray resections performed on this right foot and has chronic foot deformity. The preoperative indications, planned procedure, possible benefits, risks, complications, and anticipated healing time management. I discussed her surgical plan in detail with the patient and her family. They understand and elect to proceed with surgery at this time. Informed surgical consent and the surgical limb were signed. A transmetatarsal amputation was selected to optimize a functional foot and to remove all infected and non viable tissue. She understands the plan is for transmetatarsal amputation and she also consented for a potential tendon lengthening procedure which will be evaluated when is sedated. She understands the potential complications include but are not limited to the following: Pain, swelling, scarring, delayed or nonhealing, need for revisional surgery, blood clots, allergic reaction, transfer lesion, continued deformity, possible loss of limb, function, or life. Preoperative medical optimization was assisted by the hospitalist team and her comorbidities are allergies are noted. Infectious disease is also involved in the case and is appreciated. All of her preoperative diagnostic data was reviewed. Procedure in detail: The patient was transported to the operating room via cart and placed on the operating table in the supine position. Final verification the patient, surgery, limb designation was performed via the timeout procedure. Local preoperative anesthesia was administered as noted above by the podiatry team. MAC anesthesia was initiated by the anesthesia team. It is noted she is already receiving antibiotics intravenously on the medical floor. A well-padded pneumatic right thigh tourniquet was placed. The right lower extremity was prepped and draped in the usual aseptic manner. Surgery began as a following: Attention was first directed to the dorsal aspect of the right foot which an incision was made directly down to bone in a fishmouth manner to the forefoot. Care was taken to identify, protect, and retract all neurovascular structures throughout the entire procedure. Next, a cruz elevator was utilized to reflect soft tissue off of the metatarsals and a sagittal saw was used to resect proximal to the suspected infection previous site taking care to maintain a good forefoot parabola and beveled edges. All nonviable tissue was removed from the table. A clearance fragment of the third metatarsal was next obtained and sent to both pathology and microbiology as noted above. The open amputation site was copiously irrigated with normal saline. Clean gloves, instruments, and drapery was next applied. Intraoperative fluoroscopy exam was performed to confirm the amputation level and no acute injuries were noted. Next, a rongeur was utilized to smooth down the remaining metatarsal edges and all tendons were pulled to length and resected. Any nonviable tissue or avascular soft tissue structures were carefully removed from the plantar flap and this was mobilized. The tourniquet was deflated at this time and brisk capillary refill time was noted to both the dorsal and the plantar flap. Hemostasis was controlled with direct pressure and electrocauterization. No pulsatile bleeding was appreciated at this time. Next the flap was reapproximated in a non-tension manner utilizing no touch technique in which limited Vicryl was used for deep closure. Next, nylon was used to reapproximate the skin edges and the flap was remodeled and gently everted utilizing vertical mattress and simple suture techniques. At this time the patient's lower extremity was assessed with the Silverskold test. H er ankle dorsiflexion was approximately 5+ degrees with the knee extended and 10 with the knee bent. Therefore tendon lengthening procedure was not implemented at this time. A postoperative injection was administered at this time as noted above. A postoperative dressing consisting of Adaptic soaked in Betadine, gauze, abdominal pads, Kerlix, and Dalia wrap was applied. After procedure: The patient tolerated the procedure and anesthesia well. She was transferred to the PACU with vital signs stable and vascular status intact the right lower extremity. She will be transferred back to the medical surgical floor upon continued stability. She was advised to continue with strict nonweightbearing to the right lower extremity and to keep her dressing clean, dry, and intact. A splint will be applied after her initial dressing change. Microbiology and pathology specimens are pending. To continue on IV antibiotics under the management of infectious disease. To continue DVT prophylaxis and medical management per primary team. To elevate and ice for postoperative pain and inflammation management. Postoperative x-rays will formally be ordered and her lab trends will be monitored. I recommend half-way facility placement and this is pending. I will follow her closely while in house. Ivanna Magana DPM, [facility] 06/19/17 1053 <Electronically signed by Ivanna Magana DPM> Date Ivanna Magana DPM CC: Con Johnson MD; Ivanna Magana DPM; Adam Webb MD Signed BEDSIDE GLUCOSE Collected: 06/19/2017 Status: F Source: [place] 8:[address] [facility] REPOSITORY TYPE CODE TESTS RESULT OUT OF RANGE REFERENCE UNITS LAB L501.080 70-110 mg/dL Normal BEDSIDE GLU 96 Result Comment: MANAGEMENT OF PATIENT CARE PER NURSING PROTOCOL Performed By: #### L501.080 #### [facility] [address] [address] [address] FOOT MIN 3 VIEWS Observed: 06/19/2017 Status: F Source: [place] 8:[address] [facility] REPOSITORY [facility] Imaging Services [address] [place] [address] Foot min 3 Views MR#: [id number] Acct: [id number] Name: LISA SEAY Rep #: [id number] : 1945 F 72 From: Lucas Campoverde MD PCP: Con Johnson MD Status: ADM IN Study: Foot min 3 Views Date of Exam: 06/19/17 Exam# [id number] Ordering Dr: Ivanna Magana DPM STUDY: X-RAY - RIGHT FOOT CLINICAL: Female, 72 years old. Amputation TECHNIQUE: 3 view(s) of the foot. COMPARISON: None. FINDINGS: Interval transmetatarsal amputations of all 5 digits. Soft tissue swelling. No acute fractures or erosive lesions are seen. Calcaneus spurs. RAD/Foot min 3 Views IMPRESSION: Interval transmetatarsal amputations of all 5 digits. Soft tissue swelling. No acute fractures or erosive lesions are seen. Electronically Signed: Lucas Campoverde MD at 5:46 EST Tel , Service support , CC: Con Johnson MD; Ivanna Magana DPM Electrical Software Engineer: Signed BASIC METABOLIC Collected: 06/19/2017 Status: F Source: [place] PROFILE (BMP) 6:[address] [facility] REPOSITORY Order Comment: SPECIMEN OBTAINED FROM LINE DRAW TYPE CODE TESTS RESULT OUT OF RANGE REFERENCE UNITS LAB L501.0100 70-110 mg/dL Normal GLU 82 LAB L501.1000 7-18 mg/dL High BUN 23 LAB L501.1100 0.55-1.02 mg/dL High 1.25 CREAT,SERUM Result Comment: The validity of the calculated GFR AND GFRAA in patients over 70 years has not been determined. Clinical correlation is essential. LAB L501.1110 >60 mL/min Low EST GFR 45 Result Comment: Non- GFR Calc LAB L501.1115 >60 mL/min Low EST GFR - AA 55 Result Comment: GFR Calc LAB L501.1255 ml/min Normal Estimated CRCL 34.64 LAB L501.1300 10-20 RATIO Normal BUN/CRE 18.4 LAB L501.2200 8.5-10 mg/dL Low .1 CA 8.3 LAB L501.5300 136-14 mmol/L Normal 5 NA 143 LAB L501.5600 3.5-5. mmol/L Normal 1 K 4.1 LAB L501.5900 98-107 mmol/L High CL 109 LAB L501.6100 21.0-3 mmol/L Normal 2.0 CO2 26.0 LAB L501.6200 5-15 Normal GAP 8 Performed By: #### L500.2500 #### [facility] [address] [place], [address] CBC W/DIFF, AUTOMATED Collected: 06/19/2017 Status: F Source: [place] 6:[address] [facility] REPOSITORY Order Comment: SPECIMEN OBTAINED FROM LINE DRAW TYPE CODE TESTS RESULT OUT OF RANGE REFERENCE UNITS LAB L100.1000 4.4-11.0 K/mm3 Normal WBC 8.5 LAB L100.1200 4.2-5.4 M/mm3 Low RBC 3.78 LAB L100.1300 12.0-15.0 g/dl Low HGB 9.8 LAB L100.1400 37-47 % Low HCT 31.7 LAB L100.1500 81-99 fL Normal MCV 83.9 LAB L100.1600 27.0-32.0 pg Low MCH 25.9 LAB L100.1700 32-36 g/gl Low MCHC 30.9 LAB L100.1810 11.6-14.6 % High RDW CV 15.8 LAB L100.1820 35.1-43.9 fl High RDW SD 47.9 LAB L100.1900 150-450 K/mm3 Normal PLT 274 LAB L100.2000 6.2-12.0 fl Normal MPV 8.9 LAB L100.2100 47-70 % Normal NEUT% 59.6 LAB L100.2200 19-41 % Normal LY% 28.5 LAB L100.2300 0-10 % Normal MONO% 8.7 LAB L100.2400 0-5 % Normal EO% 2.9 LAB L100.2500 0-1 % Normal BASO% 0.1 LAB L100.2550 0.0-0.9 % Normal IM GRAN % 0.200 Result Comment: IG% - Immature Granulocytes (promyelocytes, myelocytes and metamyelocytes) > 1% indicates that a LEFT SHIFT is Present. LAB L100.2620 2.0-7.7 X10 3/uL Normal Absolute Neut 5.0 LAB L100.2720 0.83-4.51 X10 3/ul Normal Absolute Lymph 2.42 Performed By: #### L100.0100 #### [facility] [address] [place], [address] BEDSIDE GLUCOSE Collected: 06/18/2017 Status: F Source: [place] 9:[address] [facility] REPOSITORY TYPE CODE TESTS RESULT OUT OF REFERENCE UNITS RANGE LAB L501.080 70-110 mg/dL High BEDSIDE GLU 287 Result Comment: MANAGEMENT OF PATIENT CARE PER NURSING PROTOCOL Performed By: #### L501.080 #### [facility] Point of Care [address] [place] [address] BEDSIDE GLUCOSE Collected: 06/12/2017 Status: F Source: [place] 1:[address] [facility] REPOSITORY TYPE CODE TESTS RESULT OUT OF REFERENCE UNITS RANGE LAB L501.080 70-110 mg/dL High BEDSIDE GLU 144 Result Comment: MANAGEMENT OF PATIENT CARE PER NURSING PROTOCOL Performed By: #### L501.080 #### [facility] Point of Care [address] [place] [address] BEDSIDE GLUCOSE Collected: 06/12/2017 Status: F Source: [place] 8:[address] [facility] REPOSITORY TYPE CODE TESTS RESULT OUT OF REFERENCE UNITS RANGE LAB L501.080 70-110 mg/dL High BEDSIDE GLU 131 Result Comment: MANAGEMENT OF PATIENT CARE PER NURSING PROTOCOL Performed By: #### L501.080 #### [facility] Point of Care [address] [place] [address] CBC W/DIFF, AUTOMATED Collected: 06/12/2017 Status: F Source: [place] 6:[address] [facility] REPOSITORY TYPE CODE TESTS RESULT OUT OF RANGE REFERENCE UNITS LAB L100.1000 4.4-11.0 K/mm3 Normal WBC 8.2 LAB L100.1200 4.2-5.4 M/mm3 Low RBC 4.11 LAB L100.1300 12.0-15.0 g/dl Low HGB 10.5 LAB L100.1400 37-47 % Low HCT 33.9 LAB L100.1500 81-99 fL Normal MCV 82.5 LAB L100.1600 27.0-32.0 pg Low MCH 25.5 LAB L100.1700 32-36 g/gl Low MCHC 31.0 LAB L100.1810 11.6-14.6 % High RDW CV 15.7 LAB L100.1820 35.1-43.9 fl High RDW SD 47.6 LAB L100.1900 150-450 K/mm3 Normal PLT 167 LAB L100.2000 6.2-12.0 fl Normal MPV 9.7 LAB L100.2100 47-70 % Normal NEUT% 67.3 LAB L100.2200 19-41 % Normal LY% 20.7 LAB L100.2300 0-10 % Normal MONO% 9.5 LAB L100.2400 0-5 % Normal EO% 2.3 LAB L100.2500 0-1 % Normal BASO% 0.1 LAB L100.2550 0.0-0.9 % Normal IM GRAN % 0.100 Result Comment: IG% - Immature Granulocytes (promyelocytes, myelocytes and metamyelocytes) > 1% indicates that a LEFT SHIFT is Present. LAB L100.2620 2.0-7.7 X10 3/uL Normal Absolute Neut 5.5 LAB L100.2720 0.83-4.51 X10 3/ul Normal Absolute Lymph 1.69 Performed By: #### L100.0100 #### [facility] [address] [place], [place], [id number] BASIC METABOLIC Collected: 06/12/2017 Status: F Source: [place] PROFILE (BMP) 6:[address] [facility] REPOSITORY TYPE CODE TESTS RESULT OUT OF RANGE REFERENCE UNITS LAB L501.0100 70-110 mg/dL High GLU 111 Result Comment: Fasting Glucose result from 110 to <126 mg/dL suggests IMPAIRED HOMEOSTASIS per A.D.A. criteria. LAB L501.1000 7-18 mg/dL High BUN 27 LAB L501.1100 0.55-1.02 mg/dL High CREAT,SERUM 1.26 Result Comment: The validity of the calculated GFR AND GFRAA in patients over 70 years has not been determined. Clinical correlation is essential. LAB L501.1110 >60 mL/min Low EST GFR 45 Result Comment: Non- GFR Calc LAB L501.1115 >60 mL/min Low EST GFR - AA 54 Result Comment: GFR Calc LAB L501.1255 ml/min Normal Estimated CRCL 34.86 LAB L501.1300 10-20 RATIO High BUN/CRE 21.4 LAB L501.2200 8.5-10 mg/dL Low .1 CA 8.1 LAB L501.5300 136-14 mmol/L Normal 5 NA 139 LAB L501.5600 3.5-5. mmol/L Normal 1 K 3.8 LAB L501.5900 98-107 mmol/L Normal CL 105 LAB L501.6100 21.0-3 mmol/L Normal 2.0 CO2 24.0 LAB L501.6200 5-15 Normal GAP 10 Performed By: #### L500.2500 #### [facility] [address] [place], [address] HEMOGLOBIN A1C Collected: 06/12/2017 Status: F Source: [place] 6:[address] [facility] REPOSITORY TYPE CODE TESTS RESULT OUT OF RANGE REFERENCE UNITS LAB L501.9985 4.2-6.3 % High HGB A1C 9.1 Performed By: #### L501.9985 #### [facility] [address] [place], [address] BEDSIDE GLUCOSE Collected: 06/11/2017 Status: F Source: [place] 8:[address] [facility] REPOSITORY TYPE CODE TESTS RESULT OUT OF REFERENCE UNITS RANGE LAB L501.080 70-110 mg/dL High BEDSIDE GLU 355 Result Comment: MANAGEMENT OF PATIENT CARE PER NURSING PROTOCOL Performed By: #### L501.080 #### [facility] Point of Care [address] [place] [address] BEDSIDE GLUCOSE Collected: 06/11/2017 Status: F Source: [place] 6:[address] [facility] REPOSITORY TYPE CODE TESTS RESULT OUT OF REFERENCE UNITS RANGE LAB L501.080 70-110 mg/dL High alert BEDSIDE GLU > 500 Result Comment: Dr Villela Followed MANAGEMENT OF PATIENT CARE PER NURSING PROTOCOL Performed By: #### L501.080 #### [facility] Point of Care [address] [place] [address] VENOUS DUPLEX LOWER Observed: 06/11/2017 Status: F Source: [place] EXTREMITY 5:[address] [facility] REPOSITORY [facility] Cardiovascular Services [address] [place] [address] Venous Duplex US - Benny Extrem 06/11/17 1414 MR#: [id number] Acct: [id number] Name: LISA SEAY Rep #: [id number] : 1945 71 From: Adam Serna MD Attending Dr: Ovi Willson MD Status: ADM IN Ordering Dr: Ovi Willson MD Date: 06/11/17 Location: [facility] [place] Sex: F C Admitted: 06/11/17 Reason For Study: Cellulitis RIGHT LEFT CFV is compressible, spontaneous, phasic, CFV is compressible, spontaneous, phasic, competent and demonstrates normal competent, and demonstrates normal augmentation. augmentation. FV is compressible, spontaneous, phasic, FV is compressible, spontaneous, phasic, competent and demonstrates normal competent and demonstrates normal augmentation. augmentation. POP V is compressible, spontaneous, phasic, POP V is compressible, spontaneous, phasic, competent and demonstrates normal competent and demonstrates normal augmentation. augmentation. T/P Trunk is compressible. T/P Trunk is compressible. PTV is compressible. PTV is compressible. RT PerV is compressible. LT PerV is compressible. GSV harvested. GSV harvested. Interpretation Summary No evidence for acute deep venous thrombosis bilateral lower extremities with surgically harvested bilateral great saphenous veins. Ordering Physician: Ovi Willson Referring Physician: Con Johnson MD Performed By: Barb Bustillos RVT 06/11/171740 Date Adam Serna MD CC: Con Johnson MD; Ovi Willson MD Date Dictated: 06/11/17 1414 Date Transcribed: 06/11/171740 Electrical Software Engineer: Signed URINALYSIS, COMPLETE Collected: 06/11/2017 Status: F Source: [place] 5:[address] [facility] REPOSITORY Order Comment: How was Urine Obtained? CLEAN CATCH TYPE CODE TESTS RESULT OUT OF RANGE REFERENCE UNITS LAB L400.3000 Yellow COLOR Normal Straw LAB L400.3050 Clear Normal CLARITY Clear LAB L400.3200 Normal mg/dl High GLUCOSE, UR 1000 LAB L400.3300 Negative mg/dL Normal BILIRUBIN URINE Negative LAB L400.3400 Negative mg/dl Normal KETONE UR Negative LAB L400.3465 1.002-1.030 Normal SP.GR. DIPSTX 1.005 LAB L400.3550 5.0 - 8.0 pH UR Normal 6.5 LAB L400.3600 Negative mg/dl High PROT 30 DIPSTX LAB L400.3700 Normal mg/dl Normal UROBILI Normal LAB L400.3750 Negative Normal NITRITE UR Negative LAB L400.3780 Negative /ul High 25 OCCULT BLOOD-UR LAB L400.3800 Negative /ul High LEUK 25 ESTERASE LAB L400.4050 0-5 /hpf WBC Normal 10-25 SEEN LAB L400.4100 0-5 /hpf Normal RBC-UA 0-5 SEEN LAB L400.4150 5-10 /hpf SQUAM Normal EPI 0-5 SEEN LAB L400.4300 None Seen /hpf Normal BACTERIA RARE LAB L400.4350 <or=2+ /hpf 0 Normal MUCUS, URINE SEEN Performed By: #### L400.0001 #### [facility] [address] [place], [place], [address] BEDSIDE GLUCOSE Collected: 06/11/2017 Status: F Source: [place] 4:[address] [facility] REPOSITORY TYPE CODE TESTS RESULT OUT OF REFERENCE UNITS RANGE LAB L501.080 70-110 mg/dL High BEDSIDE GLU 439 Result Comment: MANAGEMENT OF PATIENT CARE PER NURSING PROTOCOL Performed By: #### L501.080 #### [facility] Point of Care [address] [place] [address] CBC W/DIFF, AUTOMATED Collected: 06/11/2017 Status: F Source: [place] 2:[address] [facility] REPOSITORY TYPE CODE TESTS RESULT OUT OF RANGE REFERENCE UNITS LAB L100.1000 4.4-11.0 K/mm3 High WBC 12.8 LAB L100.1200 4.2-5.4 M/mm3 Low RBC 4.07 LAB L100.1300 12.0-15.0 g/dl Low HGB 11.0 LAB L100.1400 37-47 % Low HCT 33.8 LAB L100.1500 81-99 fL Normal MCV 83.0 LAB L100.1600 27.0-32.0 pg Normal MCH 27.0 LAB L100.1700 32-36 g/gl Normal MCHC 32.5 LAB L100.1810 11.6-14.6 % High RDW CV 15.7 LAB L100.1820 35.1-43.9 fl High RDW SD 46.7 LAB L100.1900 150-450 K/mm3 Normal PLT 172 LAB L100.2000 6.2-12.0 fl Normal MPV 10.4 LAB L100.2100 47-70 % High NEUT% 81.5 LAB L100.2200 19-41 % Low LY% 7.7 LAB L100.2300 0-10 % High MONO% 10.4 LAB L100.2400 0-5 % Normal EO% 0.0 LAB L100.2500 0-1 % Normal BASO% 0.2 LAB L100.2550 0.0-0.9 % Normal IM GRAN % 0.200 Result Comment: IG% - Immature Granulocytes (promyelocytes, myelocytes and metamyelocytes) > 1% indicates that a LEFT SHIFT is Present. LAB L100.2620 2.0-7.7 X10 3/uL High Absolute Neut 10.4 LAB L100.2720 0.83-4.51 X10 3/ul Normal Absolute Lymph 0.98 Performed By: #### L100.0100 #### [facility] [address] [place], [address] LACTIC ACID Collected: 06/11/2017 Status: F Source: [place] 2:[address] [facility] REPOSITORY Order Comment: Yes/No query for Sepsis Lactate Rule Y TYPE CODE TESTS RESULT OUT OF RANGE REFERENCE UNITS LAB L503.6005 0.4-2.0 mmol/L Normal LACTIC ACID 1.8 Performed By: #### L503.6005 #### [facility] [address] [place], [address] PHOSPHORUS Collected: 06/11/2017 Status: F Source: [place] 2:[address] [facility] REPOSITORY TYPE CODE TESTS RESULT OUT OF RANGE REFERENCE UNITS LAB L501.2300 2.5-4.9 mg/dL Normal PHOS 3.7 Performed By: #### L501.2300 #### [facility] [address] [place], [address] COMPREHENSIVE METABOLIC Collected: 06/11/2017 Status: F [facility] [facility] REPOSITORY TYPE CODE TESTS RESULT OUT OF RANGE REFERENCE UNITS LAB L501.0100 70-110 mg/dL High alert GLU 479 Result Comment: Critical Result(s) Called ISMAEL FOLEY at: 16:20:28 06/11/2017 by: BRIAN PIMENTEL Glucose result greater than or equal to 200 mg/dL suggests DIABETES MELLITUS per A.D.A. criteria. LAB L501.1000 7-18 mg/dL High BUN 28 LAB L501.1100 0.55-1.02 mg/dL High CREAT,SERUM 1.53 Result Comment: The validity of the calculated GFR AND GFRAA in patients over 70 years has not been determined. Clinical correlation is essential. LAB L501.1110 >60 mL/min Low EST GFR 36 Result Comment: Non- GFR Calc LAB L501.1115 >60 mL/min Low EST GFR - AA 43 Result Comment: GFR Calc LAB L501.1255 ml/min Normal Estimated CRCL 28.71 LAB L501.1300 10-20 RATIO Normal BUN/CRE 18.3 LAB L501.1500 6.4-8. g/dL Normal 2 T PROT 7.5 LAB L501.1800 3.4-5. g/dL Low 0 ALB 2.9 Result Comment: Please note revised Albumin AND Globulin reference range effective 2017. LAB L501.1950 2.2-4.2 g/dL High GLOB 4.6 LAB L501.2000 0.9-2.4 RATIO Low A/G 0.6 LAB L501.2200 8.5-10.1 mg/dL Low CA 8.4 LAB L501.4100 15-37 U/L Low AST 11 LAB L501.4305 45-117 U/L Normal ALK P 95 LAB L501.4405 12-78 U/L Normal ALT 14 LAB L501.4600 0.20-1.00 mg/dL Normal T BILI 0.60 LAB L501.5300 136-145 mmol/L Low NA 129 LAB L501.5600 3.5-5.1 mmol/L Normal K 4.5 LAB L501.5900 98-107 mmol/L Low CL 96 LAB L501.6100 21.0-32.0 mmol/L Normal CO2 24.0 LAB L501.6200 5-15 Normal GAP 9 Performed By: #### L500.4050, L501.5200, L501.6710, L506.0500 #### [facility] [address] [place], [place], [address] MAGNESIUM Collected: 06/11/2017 Status: F Source: [place] 2:[address] [facility] REPOSITORY TYPE CODE TESTS RESULT OUT OF RANGE REFERENCE UNITS LAB L501.5200 1.6-2.6 mg/dL Normal MG 1.6 Result Comment: Please note revised Magnesium reference range effective 2017. Performed By: #### L500.4050, L501.5200, L501.6710, L506.0500 #### [facility] [address] [place], [address] CRP Collected: 06/11/2017 Status: F Source: [place] 2:[address] [facility] REPOSITORY TYPE CODE TESTS RESULT OUT OF RANGE REFERENCE UNITS LAB L501.6710 0.0-3.0 mg/L High 145.00 C-REACTIVE PROT Result Comment: C-Reactive Protein (CRP) provides useful information for the diagnosis, therapy and monitoring of inflammatory processes and associated diseases. For the evaluation of Relative Risk for Cardiovascular Disease, a High Sensitivity CRP (HSCRP) should be ordered. Performed By: #### L500.4050, L501.5200, L501.6710, L506.0500 #### [facility] [address] [place], [address] PREALBUMIN Collected: 06/11/2017 Status: F Source: [place] 2:[address] [facility] REPOSITORY TYPE CODE TESTS RESULT OUT OF REFERENCE UNITS RANGE LAB L506.0500 20.0-40.0 mg/dL Low PREALBUMIN 14.1 Performed By: #### L500.4050, L501.5200, L501.6710, L506.0500 #### [facility] [address] [place], [address] ERYTHROCYTE SED RATE Collected: 06/11/2017 Status: F Source: [place] 2:[address] [facility] REPOSITORY TYPE CODE TESTS RESULT OUT OF RANGE REFERENCE UNITS LAB L102.0000 0-30 mm/hr High SED RATE 75 Performed By: #### L101.9900 #### [facility] [address] [place], [address] M R STAPH AUREUS Collected: 06/11/2017 Status: F Source: [place] DNA BY PCR 2:[address] [facility] REPOSITORY Order Comment: Order Date: 06/11/17 Source: NASAL SWAB TYPE CODE TESTS RESULT OUT OF RANGE REFERENCE UNITS LAB L8200.1100 Negative Normal MRSA Negative RESULT Performed By: #### L8200.1000 #### [facility] [address] [place], [address] Observed: 06/11/2017 Status: F Source: [place] CULTURE, DEEP WOUND 2:[address] [facility] REPOSITORY Gram Stain Gram Stain 2+ White Blood Cells 1+ Gram negative rods 2+ Gram positive cocci Wound Culture ORGANISM 1: Streptococcus agalactiae (B) Amount Growth 2+ ORGANISM 2: Staphylococcus aureus Amount Growth 1+ ORGANISM 3: Streptococcus mitis/ oralis Amount Growth Rare Streptococcus agalactiae (B): REACTION Ampicillin $ <=0.25 S Benzylpenicillin NF <=0.06 S Ceftriaxone $ <=0.12 S Clindamycin $$ >=1 R Inducable Clindamycin Resistan - Linezolid $$$$ <=2 S Vancomycin $ 0.5 S (NF) indicates non-formulary drug at [facility]. Approval by Infectious Disease Specialist required before non-formulary drugs may be ordered and/or dispensed. * CLSI guidelines does not recommend testing of cephalosporins. This interpretation is deduced from Beta-lactam/penicillin results. Staphylococcus aureus: REACTION Benzylpenicillin NF >=0.5 R Cefoxitin *NF - Clindamycin $$ <=0.25 S Inducable Clindamycin Resistan - Erythromycin $ >=8 R Gentamicin $ <=0.5 S Levofloxacin $ 0.25 S Linezolid $$$$ 2 S Moxifloxicin *NF <=0.25 S Oxacillin NF 0.5 S Tigecycline $$$$ <=0.12 S Rifampin $$ <=0.5 S Tetracycline NF <=1 S Trimethoprim/Sulfametho $ <=10 S Vancomycin $ 1 S (NF) indicates non-formulary drug at [facility]. Approval by Infectious Disease Specialist required before non-formulary drugs may be ordered and/or dispensed. * CLSI guidelines does not recommend testing of cephalosporins. This interpretation is deduced from Beta-lactam/penicillin results. Streptococcus mitis/ oralis: REACTION Ampicillin $ <=0.25 S Benzylpenicillin NF <=0.06 S Cefotaxime $ <=0.12 S Ceftriaxone $ <=0.12 S Clindamycin $$ <=0.25 S Erythromycin $ 2 R Levofloxacin $ 1 S Tetracycline NF 0.5 S Vancomycin $ 0.5 S (NF) indicates non-formulary drug at [facility]. Approval by Infectious Disease Specialist required before non-formulary drugs may be ordered and/or dispensed. * CLSI guidelines does not recommend testing of cephalosporins. This interpretation is deduced from Beta-lactam/penicillin results. Cult, Anaerobic No anaerobic bacteria isolated. Performed By: #### M100.1500 #### [facility] [address], [address] ALLERGIES ALLERGIES DATE TYPE / CODE NAME / CODE REACTION SEVERITY SOURCE 06/11/2018 Drug bupropion Unknown Unknown [place] Allergy/416 HCl/[id number](RXN Community [id number][facility] 06/11/2018 Drug propoxyphene Unknown Unknown [place] Allergy/416 napsylate/[id number] Community [id number]([facility] 06/11/2018 Drug atorvastatin Unknown Unknown [place] Allergy/416 calcium/[id number] Community [id number]([facility] ([facility] ED CT) Repository 06/11/2018 Drug NSAIDS Other Unknown [place] Allergy/416 (Non-Steroidal Community [id number]([facility] Anti-Inflamma/F001 [facility] ED CT) 891508(RXNORM) Repository 06/11/2018 Drug Tetanus Vaccines Chest tightness Unknown [place] Allergy/416 and Community 739315([id number] Repository 06/11/2018 Drug Quinolones/[id number] Unknown Unknown [place] Allergy/416 668(RXNORM) Community 124003([facility] ED CT) Repository 06/11/2018 Drug gemfibrozil/R05951 Unknown [place] Allergy/416 2050(RXNORM) Community 783857([facility] ED CT) Repository 06/11/2018 Drug mannitol/[id number] joint pain, Unknown [place] Allergy/416 2(RXNORM) unable to Community 289838([facility] breathe, unable [facility] ED CT) to walk Repository 06/11/2018 Drug pravastatin/W83275 MYALGIAS [place] Allergy/416 3606(RXNORM) Community 307056([facility] ED CT) Repository 06/11/2018 Drug tizanidine/[id number] Unknown Unknown [place] Allergy/416 021(RXNORM) Community 613132([facility] ED CT) Repository 06/11/2018 Drug zoledronic joint Unknown [place] Allergy/416 acid/[id number](RX pain,unable to Community 568214([facility] NORM[facility] Repository 06/07/2018 Drug Penicillins/L71538 Unknown [place] Allergy/416 0476(RXNORM) Community 904437([facility] ED CT) Repository 09/21/2017 Drug water for joint pain, Unknown [place] Allergy/416 injection,sterile/ unable to Community 285561(SNOM [id number](RXNORM) breathe, unable Hospital ED CT) to walk Repository ENCOUNTERS ENCOUNTERS ADMIT/DISCHARGE ACCOUNT ADMITTING ENCOUNTER LOCATION SOURCE NUMBER CLASS 06/17/2018 [id number] Fascione, Ambulatory [place] 7 [facility] ing:KA5Bucw: Repository GC295Iil: 1 06/17/2018 [id number] Fascione, Ambulatory BMSBuilding:B [place] 4 [facility] Repository 06/17/2018 [id number] Fascione, Ambulatory BMSBuilding:B [place] 7 [facility] Repository 06/07/2018/ [id number] Emergency [place] 9 7 [facility] ing:ED Repository 06/05/2018 [id number] Ambulatory [place] 0 [facility] ing:LABSPEC Repository 05/22/2018/ [id number] Ambulatory BMSBuilding:B [place] 8 7 [facility] Repository 05/09/2018 [id number] Ambulatory [place] 4 [facility] ing:MEDOUTP Repository 05/08/2018/ [id number] Ambulatory BMSBuilding:B [place] 8 8 [facility] Repository 05/07/2018 [id number] Ambulatory [place] 5 [facility] ing:LAB.FUTUR Repository E 05/01/2018 [id number] Ambulatory [place] 4 [facility] ing:MTLAB Repository 04/02/2018 [id number] Ambulatory [place] 6 [facility] ing:MFPLAB Repository 03/19/2018/ [id number] Ambulatory [place] 8 3 [facility] Hospital ing:OT Repository 01/30/2018/ [id number] Ambulatory BMSBuilding:B [place] 8 2 [facility] Repository 01/15/2018 [id number] Ambulatory [place] 5 [facility] Hospital ing:MFPLAB Repository 01/13/2018 [id number] Ambulatory [place] [facility] Hospital ing:CVS Repository 01/13/2018 [id number] Ambulatory BMSBuilding:W [place] 3 [facility] Repository 12/20/2017 [id number] Ambulatory [place] 5 [facility] ing:LABSPEC Repository 09/21/2017/ [id number] Emergency [place] 8 7 [facility] ing:ED Repository 07/25/2017/ [id number] Emergency [place] 8 8 [facility] ing:ED Repository 07/18/2017 [id number] Ambulatory [place] 9 [facility] ing:LABSPEC Repository 07/17/2017/ [id number] Ambulatory BMSBuilding:B [place] 8 6 [facility] Repository 07/11/2017 [id number] Ambulatory [place] 3 [facility] Hospital ing:MFPLAB Repository 06/20/2017/ [id number] Adolfo Rush [facility] Inpatient [place] 8 2 Encounter [facility] ing:TCURoom: Repository TBD98Qlc: 1 06/11/2017/ [id number] [facility], Inpatient [place] 8 7 Ovi Encounter [facility] ing:CF3Kfed: Repository NL502Vaa: 1 PAYERS PAYERS ENCOUNTER GUARANTOR PAYER SUBSCRIBER SOURCE 06/17/2018 LISA MONSALVEPP644 Primary LISA BOYERB: [place] HUYNH Insurance:MEDICARE [id number] [id number]: (330) Number: Repository [phone] ) [id number] Date:2018-06-06 06/17/2018 Secondary RY E [place] Insurance:AETNAPolicy RUPPDOB: Community Number: [id number] Hospital [id number] Repository Date:6458-13-33[address] [address]VT: 06/17/2018 Tertiary NOT GIVENUNK [place] Insurance:SELF PAY [facility] Number: Effective Repository Date:2018-06-06 06/17/2018 LISA M [id number] Primary LISA M RUPPDOB: [place] Insurance:MEDICARE [id number] [address]Xdo: (330) Number: Repository [phone] () [id number] Date:2018-06-06 06/17/2018 Secondary RY E [place] Insurance:AETNAPolicy RUPPDOB: Community Number: [id number] Hospital [id number] Repository Date:7993-74-41ZZ [address] [place] [address]KR: 06/17/2018 Tertiary NOT GIVENUNK [place] Insurance:SELF PAY [facility] Number: Effective Repository Date:2018-06-17 06/17/2018 LISA M [id number] Primary LISA M RUPPDOB: [place] Insurance:MEDICARE [id number] [facility] [address]Lvh: (330) Number: Repository [phone] () [id number] Date:2018-06-06 06/17/2018 Secondary RY E [place] Insurance:AETNAPolicy RUPPDOB: Community Number: [id number] Hospital [id number] Repository Date:3564-03-46TA [address] [address]OV: 06/17/2018 Tertiary NOT GIVENUNK [place] Insurance:SELF PAY [facility] INS[facility]Policy Hospital Number: Effective Repository Date:2018-06-17 06/07/2018 LISA M [id number] Primary LISA M RUPPDOB: [place] Insurance:MEDICARE [id number] [facility] [address]Mab: (330) Number: Repository [phone] (HP) [id number] Date:2018-06-07 06/07/2018 Secondary RY E [place] Insurance:RURAL RUPPDOB: Community CARRIER BENEFIT [id number] Hospital PLANPolic Number: Repository [id number] Date:2124-72-92FF [address] [address]XS: 06/07/2018 Tertiary NOT GIVENUNK [place] Insurance:SELF PAY [facility] Number: Effective Repository Date:2018-06-07 06/05/2018 LISA M [id number] Primary LISA M RUPPDOB: [place] Insurance:MEDICARE [id number] [facility] [address]Isl: (330) Number: Repository [phone] () [id number] Date:2018-06-05 06/05/2018 Secondary RY E [place] [facility] RUPPDOB: Community Number: [id number] Hospital [id number] Repository Date:5645-98-47HA [facility] [place] [address]QD: 06/05/2018 Tertiary NOT GIVENUNK [place] Insurance:SELF PAY [facility] Number: Effective Repository Date:2018-06-05 05/22/2018 LISA M [id number] Primary LISA M RUPPDOB: [place] Insurance:MEDICARE [id number] [facility] [address]Mih: (330) Number: Repository [phone] (HP) [id number] Date:2018-05-08 05/22/2018 Secondary RY E [place] Insurance:RURAL RUPPDOB: Community CARRIER BENEFIT [id number] Hospital PLANPolicy Number: Repository [id number] Date:5339-78-85WF[address] [address]O: 05/22/2018 Tertiary NOT GIVENUNK [place] Insurance:SELF PAY [facility] Number: Effective Repository Date:2018-05-19 05/09/2018 LISA M [id number] Primary LISA M RUPPDOB: [place] Insurance:MEDICARE [id number] [facility] [address]Cdl: (330) Number: Repository [phone] () [id number] Date:2018-05-05 05/09/2018 Secondary RY E [place] Insurance:RURAL RUPPDOB: Community CARRIER BENEFIT [id number] Hospital PLANPolicy Number: Repository [id number] Date:6492-22-94AM[address] [address]ID: 05/09/2018 Tertiary NOT GIVENUNK [place] Insurance:SELF PAY [facility] Number: Effective Repository Date:2018-05-05 05/08/2018 LISA M [id number] Primary LISA M RUPPDOB: [place] Insurance:MEDICARE [id number] Rehabilitation [facility] [address]Wdc: (330) Number: Repository [phone] ( [id number] Date:2018-01-30 05/08/2018 Secondary RY E [place] Insurance:RURAL RUPPDOB: Community CARRIER BENEFIT [id number] Hospital PLANPolicy Number: Repository [id number] Date:8422-21-96GY[address] [address]CH: 05/08/2018 Tertiary NOT GIVENUNK [place] Insurance:SELF PAY [facility] Number: Effective Repository Date:2018-05-08 05/07/2018 LISA M [id number] Primary LISA M RUPPDOB: [place] Insurance:MEDICARE [id number] PART [place] [facility] [address]Ypm: (330) Number: Repository [phone] () [id number] Date:2018-05-07 05/07/2018 Secondary RY E [place] Insurance:RURAL RUPPDOB: Community CARRIER BENEFIT [id number] Hospital PLANPolicy Number: Repository [id number] Date:2153-84-79NP [facility] [address]EM: 05/07/2018 Tertiary NOT GIVENUNK [place] Insurance:SELF PAY [facility] Number: Effective Repository Date:2018-05-07 05/01/2018 LISA M [id number] Primary LISA M RUPPDOB: [place] Insurance:MEDICARE [id number] PART [place] [facility] [address]Rdf: (330) Number: Repository [phone] () [id number] Date:2018-05-01 05/01/2018 Secondary RY E [place] Insurance:RURAL RUPPDOB: Community CARRIER BENEFIT [id number] Hospital PLANPolicy Number: Repository [id number] Date:1402-85-50[address] [address]UA: 05/01/2018 Tertiary NOT GIVENUNK [place] Insurance:SELF PAY [facility] Number: Effective Repository Date:2018-05-01 04/02/2018 LISA M [id number] Primary LISA M RUPPDOB: [place] Insurance:MEDICARE [id number] PART [place] [facility] [address]Dsp: (330) Number: Repository [phone] () [id number] Date:2018-04-02 04/02/2018 Secondary Ry E [place] Insurance:RURAL RuppDOB: Community CARRIER BENEFIT [id number] Hospital PLANPolicy Number: Repository [id number] Date:4439-04-13LF [facility] [place] [address]GV: 04/02/2018 Tertiary NOT GIVENUNK [place] Insurance:SELF PAY [facility] Number: Effective Repository Date:2018-04-02 03/19/2018 LISA M [id number] Primary LISA M RUPPDOB: [place] Insurance:MEDICARE [id number], [place] PART [place] [facility] [address]Von: (330) Number: Repository [phone] () [id number] Date:2012-05-27 03/19/2018 Secondary RY E [place] Insurance:RURAL RUPPDOB: [facility] CARRIER BENEFIT [id number] Hospital PLANPolicy Number: Repository [id number] Date:2020-17-94XD [address] [address]WE: 03/19/2018 Tertiary NOT GIVENUNK [place] Insurance:SELF PAY [facility] Number: Effective Repository Date:2018-03-06 01/30/2018 LISA M [id number] Primary Ry E [place] Insurance:RURAL RuppDOB: [place] CARRIER BENEFIT [id number] Hospital [address]Xgj: (330) PLANPolicy Number: Repository [phone] () [id number] Date:6049-94-68RO[address] [address]LL: 01/30/2018 Secondary LISA M RUPPDOB: [place] Insurance:MEDICARE [id number] Community PART A [facility] Number: Repository [id number] Date:2017-07-17 01/30/2018 Tertiary NOT GIVENUNK [place] Insurance:SELF PAY [facility] Number: Effective Repository Date:2018-01-30 01/15/2018 LISA M [id number] Primary LISA M RUPPDOB: [place] Insurance:MEDICARE [id number] PART [place] [facility] [address]Mxx: (330) Number: Repository [phone] () [id number] Date:2018-01-15 01/15/2018 Secondary Ry E [place] Insurance:RURAL RuppDOB: Community CARRIER BENEFIT [id number] Hospital PLANPolicy Number: Repository [id number] Date:7970-25-18[address] [place] [address]NX: 01/15/2018 Tertiary NOT GIVENUNK [place] Insurance:SELF PAY [facility] Number: Effective Repository Date:2018-01-15 01/13/2018 LISA M [id number] Primary LISA M RUPPDOB: [place] Insurance:MEDICARE [id number] PART [facility] [address]Ikb: (330) Number: Repository [phone] ) [id number] Date:2018-01-08 01/13/2018 Secondary Ry E [place] Insurance:RURAL RuppDOB: Community CARRIER BENEFIT [id number] Hospital PLANPolicy Number: Repository [id number] Date:9962-23-17XZ[address] [address]DS: 01/13/2018 Tertiary NOT GIVENUNK [place] Insurance:SELF PAY [facility] Number: Effective Repository Date:2018-01-08 01/13/2018 LISA Trini [id number] Primary LISA M RUPPDOB: [place] Insurance:MEDICARE [id number] [facility] [address]Gze: (330) Number: Repository [phone] () [id number] Date:2018-01-08 01/13/2018 Secondary Ry E [place] Insurance:RURAL RuppDOB: Community CARRIER BENEFIT [id number] Hospital PLANPolic Number: Repository [id number] Date:7994-73-97ZG [address], [place] [address]UF: 01/13/2018 Tertiary NOT GIVENUNK [place] Insurance:SELF PAY Community [facility] Number: Effective Repository Date:2018-01-13 12/20/2017 LISA M [id number] Primary Ry E [place] Insurance:RURAL RuppDOB: [place] CARRIER BENEFIT [id number] Hospital [address]Mir: (330) PLANPolicy Number: Repository [phone] () [id number] Date:5556-95-95QU [address] [address]YM: 12/20/2017 Secondary LISA M RUPPDOB: [place] Insurance:MEDICARE [id number] [facility] PART A [facility] Number: Repository [id number] Date:2017-12-20 12/20/2017 Tertiary NOT GIVENUNK [place] Insurance:SELF PAY [facility] Number: Effective Repository Date:2017-12-20 09/21/2017 LISA Trini [id number] Primary Ry [address] [place] Insurance:RURAL RuppDOB: [place] CARRIER BENEFIT [id number] Hospital [address]Lza: PLANPolicy Number: Repository [phone] [id number] () Date:6516-78-94TH [address] [address]SV: 09/21/2017 Secondary LISA M RUPPDOB: [place] Insurance:MEDICARE [id number] [facility] PART A [facility] Number: Repository [id number] Date:2017-09-21 09/21/2017 Tertiary NOT GIVENUNK [place] Insurance:SELF PAY [facility] Number: Effective Repository Date:2017-09-21 07/25/2017 LISA M [id number] Primary Ry E [place] Insurance:RURAL RuppDOB: [place] CARRIER BENEFIT [id number] Hospital [address]Oyl: PLANPolicy Number: Repository [phone] [id number] () Date:3786-61-05KS [address] [address]GL: 07/25/2017 Secondary LISA M RUPPDOB: [place] Insurance:MEDICARE [id number] [facility] PART A [facility] Hospital Number: Repository [id number] Date:2017-07-25 07/25/2017 Tertiary NOT GIVENUNK [place] Insurance:SELF PAY [facility] Number: Effective Repository Date:2017-07-25 07/18/2017 LISA [id number] Primary Ry [address] [place] Insurance:RURAL RuDOB: [place] CARRIER BENEFIT [id number] Hospital [address]Lyz: PLANPolicy Number: Repository [phone] [id number] (HP) Date:1055-50-99TM [address], [place] [address]BI: 07/18/2017 Secondary LISA MONSALVEPPDOB: [place] Insurance:MEDICARE [id number] Number: Repository [id number] Date:2017-07-18 07/18/2017 Tertiary NOT GIVENUNK [place] Insurance:SELF PAY [facility] Number: Effective Repository Date:2017-07-18 07/17/2017 LISA Feliz [id number] Primary LISA Feliz RUPPDOB: [place] Insurance:MEDICARE [id number] [facility] [address]Nsk: Number: Repository [phone] [id number] () Date:2017-07-16 07/17/2017 Secondary Ry E [place] Insurance:RURAL RuppDOB: [facility] CARRIER BENEFIT [id number] Hospital PLANPolicy Number: Repository [id number] Date:3418-36-55NC [address], [place] [address]FR: 07/17/2017 Tertiary NOT GIVENUNK [place] Insurance:SELF PAY [facility] Number: Effective Repository Date:2017-07-16 07/11/2017 LISA MONSALVEPP644 Primary Ry [address] [place] Insurance:RURAL RuppDOB: [place] CARRIER BENEFIT [id number] Hospital [address]Kyy: PLANPolicy Number: Repository [phone] [id number] (HP) Date:6099-31-93[address] [address]NS: 07/11/2017 Secondary LISA M RUPPDOB: [place] Insurance:MEDICARE [id number] Community PART A BPolicy Hospital Number: Repository [id number] Date:2017-07-11 07/11/2017 Tertiary NOT GIVENUNK [place] Insurance:SELF PAY Community INSURANCEPolicy Hospital Number: Effective Repository Date:2017-07-11 06/20/2017 LISA Trini [id number] Primary Ry [address] [place] Insurance:RURAL RuppDOB: [place] CARRIER BENEFIT [id number] [id number]: PLANPolicy Number: Repository [phone] [id number] (HP) Date:1853-81-42YD [facility] [address] [address]JY: 06/20/2017 Secondary LISA M RUPPDOB: [place] Insurance:MEDICARE A [id number] Community ONLYPolicy Number: Hospital [id number] Repository Date:2017-06-20 06/20/2017 Tertiary NOT GIVENUNK [place] Insurance:SELF PAY [facility] Number: Effective Repository Date:2017-06-20 06/11/2017 LISA M [id number] Primary [address] [place] Insurance:RURAL RuppDOB: [place] CARRIER BENEFIT [id number] [place] [id number]: PLANPolicy Number: Repository [phone] [id number] (HP) Date:4937-41-94VP [address] [address]RQ: 06/11/2017 Secondary LISA M RUPPDOB: [place] Insurance:MEDICARE A [id number] Community ONLYPolicy Number: Hospital [id number] Repository Date:2017-06-11 06/11/2017 Tertiary NOT GIVENUNK [place] Insurance:SELF PAY Community [facility] Number: Effective Repository Date:2017-06-11
== END ==
PROVIDERS: Family Provider Family Medicine; PCP Family Medicine; Referring Provider Podiatrist; Visit Provider Podiatrist
DX: M14.672 Charcot's joint, left ankle and foot (principal); E11.42 Type 2 diabetes mellitus with diabetic polyneuropathy; E55.9 Vitamin D deficiency, unspecified; R26.2 Difficulty in walking, not elsewhere classified; M21.6X2 Other acquired deformities of left foot
CPT/HCPCS: 96365; 96366; J2430; J7040; J7050; A4216

== ENCOUNTER → 2018-06-05 18:06 | Outpatient (CLI) | payer MEDICARE, OTHER, SELFPAY ==
[2018-05-22 14:00] VITALS: BMI 32.1
== END ==
PROVIDERS: Family Provider Family Medicine; PCP Family Medicine; Visit Provider Podiatrist
DX: L97.529 Non-pressure chronic ulcer of other part of left foot with unspecified severity (principal)
CPT/HCPCS: 87070; 87205

== ENCOUNTER 2018-06-07 15:36 | Emergency (ER) | payer MEDICARE, OTHER, SELFPAY ==
[2018-05-22 14:00] VITALS: BMI 32.1
[2018-06-07 15:38] VITALS: BP 135/56; PULSE 71; RESP 18; TEMP 36.1; O2SAT 100; BMI 30.9
--- NOTE | 2018-06-07 15:49 | ED.VISSUMM ---
- ER Visit Summary Date of Service: 06/07/18 Chief Complaint: Left foot pain/redness History of Present Illness: The patient is a 72 F who has left foot pain and redness. Is been ongoing for 2 days. Patient has a history of Charcot foot. She was wearing a hard cast that was removed 2 days ago. When it was removed by the employment appeals examiner she had no redness. However it is becoming more painful and she notes some redness around this abrasion. The employment appeals examiner believe that the cast created a little bit of a blister on the medial part of the left foot. She says there is a small amount of drainage that happened this morning. This pain is worse with having a shoe on. She is scheduled to have a surgery done in 5 days. Physical Examination: Vital signs reviewed. Patient afebrile. Left foot exam reveals tenderness palpation of the medial left foot. There is an abrasion with surrounding erythema. No abscess or drainage. 2+ DP pulses Test Results: None performed Emergency Department Course and Treatment: I discussed with the employment appeals examiner on-call, Dr. Padgett. We both agree antibiotics will be the appropriate course of action. We will do Keflex. Patient will follow-up next week. Treatment Plan: [] Disposition: Discharge Impression: Left foot wound infection This note was generated with [employer] dictation software. It may contain incorrect words, spelling, and punctuation that were not noted in review of the chart prior to signing ED Disposition - Plan for ED Patient: Chief Complaint: Lower Extremity Injury Referrals: Con Johnson MD [Primary Care Provider] -
--- NOTE | 2018-06-07 15:53 | ED.DEP ---
ED Disposition - Plan for ED Patient: Disposition: Home or Assisted Living Chief Complaint: Lower Extremity Injury Instructions: ED Wound Infec After Surgery Prescriptions: Cephalexin [Keflex] 500 mg PO Q12 #14 cap Referrals: Con Johnson MD [Primary Care Provider] -
[2018-06-07] MEDS: Cephalexin 250 MG Capsule 500 MG PO (16:05)
== END 2018-06-07 16:10 | disposition home or self-care (01) ==
PROVIDERS: Emergency Provider Emergency Medicine; Family Provider Family Medicine; PCP Family Medicine
DX: S90.812A Abrasion, left foot, initial encounter (principal); S90.822A Blister (nonthermal), left foot, initial encounter; L08.9 Local infection of the skin and subcutaneous tissue, unspecified; Y84.8 Other medical procedures as the cause of abnormal reaction of the patient, or of later complication, without mention of misadventure at the time of the procedure; Y79.8 Miscellaneous orthopedic devices associated with adverse incidents, not elsewhere classified; Y92.9 Unspecified place or not applicable; Y93.9 Activity, unspecified; Y99.9 Unspecified external cause status; Z79.82 Long term (current) use of aspirin; Z79.4 Long term (current) use of insulin; Z79.899 Other long term (current) drug therapy
CPT/HCPCS: 99282

== ENCOUNTER 2018-06-17 18:15 | Observation (INO) | payer MEDICARE, OTHER, SELFPAY ==
[2018-05-22 14:00] VITALS: BMI 32.1
--- NOTE | 2018-06-13 15:20 | RAD_ITS ---
STUDY: X-RAY CHEST REASON FOR EXAM: Female, 72 years old. Pathology evaluation. TECHNIQUE: PA and lateral views of the chest. COMPARISON: Comparison is made with prior examination dated November 26, 2016. FINDINGS: The lungs are clear and expanded. There is no demonstrated pleural abnormality. Sternal cerclage wires and vascular clips are present from a prior sternotomy and coronary artery bypass graft procedure (CABG). Normal mediastinum and oniel. Normal visualized pulmonary arteries. There is atherosclerotic calcification of the aortic arch with tortuosity. Normal visualized thoracic spine. Prior fusion of the lower cervical spine. Small hiatal hernia. RAD/Chest PA and Lateral IMPRESSION: No acute abnormality is seen. Electronically Signed: Delvin Morton MD at 15:40 EST Tel [phone], Service support ,
--- NOTE | 2018-06-13 15:22 | EKG12_ITS ---
Test Reason : PRE OP Blood Pressure : / mmHG Vent. Rate : 070 BPM Atrial Rate : 070 BPM P-R Int : 182 ms QRS Dur : 084 ms QT Int : 390 ms P-R-T Axes : 049 -27 128 degrees QTc Int : 421 ms Normal sinus rhythm with sinus arrhythmia ST & T wave abnormality, consider lateral ischemia Abnormal ECG Confirmed by HANNA ANAYA, HCETOR ([id number]), manager editorial TORO STRONG ([id number]) on 06/16/2018 9:40:31 AM Referred By: Ivanna Magana Confirmed By:HECTOR FERREIRA MD
[2018-06-13 15:40] LABS: Absolute Lymphocyte Count 2.64 X10^3/ul (0.83-4.51); Absolute Neutrophil Count 4.7 X10^3/uL (2.0-7.7); Basophil# 0.03 X10^3/uL; Basophil% 0.4 % (0-1); Eosinophil# 0.13 X10^3/uL; Eosinophils% 1.6 % (0-5); Hemoglobin 12.8 g/dl (12.0-15.0); Lymphocyte # 2.64 X10^3/ul (4.0); Lymphocyte % 32.2 % (19-41); Mean Corpuscular Hgb 26.3 pg (27.0-32.0); Mean Corpuscular Volume 82.3 fL (81-99); Mean Platelet Vol. 9.7 fl (6.2-12.0); Monocyte# 0.72 X10^3/uL; Monocyte% 8.8 % (0-10); Neutrophil # 4.67 X10^3/uL (2.7-7.7); Neutrophil % 56.8 % (47-70); Platelet Count 262 K/mm3 (150-450); Red Blood Count 4.86 M/mm3 (4.2-5.4); White Blood Count 8.2 K/mm3 (4.4-11.0)
[2018-06-13 15:41] LABS: POSITIVE COUNT NO; POSITIVE DIFFERENTIAL NO; POSITIVE MORPHOLOGY NO
[2018-06-13 15:50] LABS: Erythrocyte Sedimentation Rate 25 mm/hr (0-30)
[2018-06-13 16:14] LABS: Vitamin D,25 Hydroxy 37.1 ng/mL (29.95-100.01)
[2018-06-13 16:20] LABS: ALB/GLOB Ratio 0.9 RATIO (0.9-2.4); AST(SGOT) 21 U/L (15-37); Alanine Aminotransfer ALT/SGPT 23 U/L (13-56); Albumin, Serum 3.5 g/dL (3.2-5.0); Alkaline Phosphatase 92 U/L (45-117); Anion Gap 9 (5-15); BUN 25 mg/dL (7-18); BUN/Creat Ratio 18.8 RATIO (10-20); CRP < 2.90 mg/L (0.0-3.0); Calcium,Total 8.7 mg/dL (8.5-10.1); Chloride 107 mmol/L (98-107); Creatinine, Serum 1.33 mg/dL (0.55-1.02); EST Glomerular Filtration Rate 42 mL/min (>60); Est Glom Filt Rate - Afr Amer 51 mL/min (>60); Globulin 3.7 g/dL (2.2-4.2); Glucose 81 mg/dL (74-106); Protein, Total 7.2 g/dL (6.4-8.2); Sodium Level 140 mmol/L (136-145)
[2018-06-17] VITALS (12 sets, daily range): BP systolic 104–155; BP diastolic 40–62; PULSE 64–80; RESP 16–18; TEMP 36.4–37.1; O2SAT 92–100; BMI 30.4
[2018-06-17 12:41] LABS: Bedside Glucose 163 mg/dL (70-110)
--- NOTE | 2018-06-17 13:00 | BON_PTH ---
PATIENT: SEBATSIÁN REYES LOC: MS3 U#:[id number] AGE/SX: 73/F ROOM: [facility] [place] RE06/17/[address]: Dr. Chris Connell MD : [id number] BED: 1 DIS: 06/18/2018 SPEC #: [id number] RECD: 06/18/18 07:03 STATUS: FER REMonica #: [id number] HANSEL: 06/17/18 13:[address]: Ivanna Magana DEPT: SURGICAL PATHOLOGY RECD BY: Tonny Crespo ENTERED: 06/18/18 08:42 SP TYPE: Bone OTHR DR: MD Dr. Jose M Rangel MD Dr. Jeanna Fascione, DPM Dr. Chris Connell MD Tissues: Bone of foot, NOS Procedures: Decalcification bone/plaque Surgery Specimen Level IV Comments: @ Ordering doctor for DEC edited from to DR.[email or web address] Recio by IRLANDA at 06/18/18 1523 @ Ordering doctor for SUIII edited from to @ by IRLANDA at 06/18/18 1523 @ Ordering doctor for SUIV edited from to @ by IRLANDA at 06/18/18 1523 @ Submitting doctor edited from to DR.[email or web address] Recio by RGOOD at 06/18/18 1523 HEADER OPERATION: Plaining/exostectomy with bone biopsy and ulcer excision, foot PRE-OP DIAGNOSIS: Left foot ulcer, cellulitis, Charcot TISSUE SUBMITTED: Left foot bone MICROSCOPIC DIAGNOSIS Left foot bone, biopsy: Chronic osteomyelitis. EDWARD:debbi 06/23/18 MICROSCOPIC DESCRIPTION Slides are reviewed. GROSS DESCRIPTION Received in fixative is one container labeled with the patient's name and designated left foot bone. The specimen consists of multiple irregular fragments of bolden bone that in aggregate measure 5 x 3 x 0.8 cm. The specimen is totally submitted in two cassettes after decalcification. / AM:debbi 06/18/18 TC:3 CPT: 76981, 94080
--- NOTE | 2018-06-17 13:00 | RAD_ITS ---
STUDY: X-RAY - LEFT FOOT CLINICAL: Female, 73 years old. Left foot bone biopsy. TECHNIQUE: 2 view(s) of the foot. COMPARISON: None. FINDINGS: Intraoperative imaging provided for bone biopsy. RAD/Foot 2 Views IMPRESSION: Intraoperative imaging provided for bone biopsy. Electronically Signed: Delvin Morton MD at 8:20 EST Tel [phone], Service support ,
[2018-06-17] MEDS: Bupivacaine Mpf 0.5% 30 ML VIAL (13:50)
--- NOTE | 2018-06-17 15:05 | PCM.IMDPSTOP ---
Problem List (1) Charcot's joint of left foot Status: Chronic (2) Ulcer of left foot Status: Acute (3) Type 2 diabetes mellitus with diabetic polyneuropathy Status: Chronic Immediate Post-Op Note Date of Procedure: 06/17/18 - Surgeon: Ivanna Magana DPM. Document Manager: Santino Figueroa PGY1 Primary Surgeon/Physician: Ivanna Magana DPM recovery auditor: none Pre-Operative Diagnosis: Charcot foot with midfoot dislocation and ulcer formation left. Rule out osteomyelitis left foot Post-Operative Diagnosis: Charcot foot with midfoot dislocation and ulcer formation left. Rule out osteomyelitis left foot Surgery/Procedure Performed:: Exostectomy left foot with bone biopsy Description of Surgical Findings:: Hemostasis controlled Materials: 2-0 Vicryl, 3-0 nylon Specimens sent See detailed operation report for additional findings The patient tolerated the procedure and anesthesia well. She was transported to the PACU vital signs stable and vascular status intact to left lower extremity. She will be transferred to the regular medical surgical floor upon continued stabilization. Her postoperative orders were entered electronically. Estimated Blood Loss: < 50 mL Specimen's removed: Left foot bone sent to microbiology (aerobic, anaerobic, acid-fast, fungal, MRSA PCR) and pathology Type of Anesthesia:: Local - Partial ankle block left lower extremity with 16 cc of 0.5% Marcaine plain, MAC - Admit VTE Documentation VTE Present on Admission: No VTE Mechan Device Prophylaxis: SCD's VTE Pharm Prophylaxis ordered?: Yes
--- NOTE | 2018-06-17 15:09 | OP.PN_ITS ---
Problem List (1) Charcot's joint of left foot Status: Chronic (2) Ulcer of left foot Status: Acute (3) Type 2 diabetes mellitus with diabetic polyneuropathy Status: Chronic Immediate Post-Op Note Date of Procedure: 06/17/18 - Surgeon: Ivanna Magana DPM. Loss Prevention Operations Manager: Santino Figueroa PGY1 Primary Surgeon/Physician: Ivanna Magana DPM creosoting engineer: none Pre-Operative Diagnosis: Charcot foot with midfoot dislocation and ulcer formation left. Rule out osteomyelitis left foot Post-Operative Diagnosis: Charcot foot with midfoot dislocation and ulcer formation left. Rule out osteomyelitis left foot Surgery/Procedure Performed:: Exostectomy left foot with bone biopsy Description of Surgical Findings:: Hemostasis controlled Materials: 2-0 Vicryl, 3-0 nylon Specimens sent See detailed operation report for additional findings The patient tolerated the procedure and anesthesia well. She was transported to the PACU vital signs stable and vascular status intact to left lower extremity. She will be transferred to the regular medical surgical floor upon continued stabilization. Her postoperative orders were entered electronically. Estimated Blood Loss: < 50 mL Specimen's removed: Left foot bone sent to microbiology (aerobic, anaerobic, acid-fast, fungal, MRSA PCR) and pathology Type of Anesthesia:: Local - Partial ankle block left lower extremity with 16 cc of 0.5% Marcaine plain, MAC - Admit VTE Documentation VTE Present on Admission: No VTE Mechan Device Prophylaxis: SCD's VTE Pharm Prophylaxis ordered?: Yes
--- NOTE | 2018-06-17 15:09 | PCM.OPRPT ---
Problem List (1) Charcot's joint of left foot Status: Chronic (2) Ulcer of left foot Status: Acute (3) Type 2 diabetes mellitus with diabetic polyneuropathy Status: Chronic Report of Operation Date of Procedure: 06/17/18 Pre-Operative Diagnosis: Charcot foot with midfoot dislocation and ulcer formation left. Rule out osteomyelitis left foot Post-Operative Diagnosis: Charcot foot with midfoot dislocation and ulcer formation left. Rule out osteomyelitis left foot Surgery/Procedure Performed:: Exostectomy left foot with bone biopsy Description of Surgical Findings:: Hemostasis: Well-padded pneumatic left ankle tourniquet, 250 mmHg, 28 minutes Materials: 2-0 Vicryl, 3-0 nylon Complications: None Type of Anesthesia:: Local - Partial ankle block left lower extremity with 16 cc of 0.5% Marcaine plain, MAC Specimen's removed: Left foot bone sent to microbiology (aerobic, anaerobic, acid-fast, fungal, MRSA PCR) and pathology Estimated Blood Loss (mL): < 50 mL Description of Procedure: Indications: This 73-year-old female with significant past medical history of coronary artery disease and previous bypass, hypertension, hyperlipidemia, anemia, GERD has a progressive left foot Charcot deformity with subluxation of the first and second metatarsal cuneiform articulation. The dislocated bone prominence was contributing to ulcer formation with concurrent cellulitis. She has been treated in the outpatient setting with oral antibiotics with resolution of local cellulitis. She has also been treated in the outpatient setting with IV biphosphonate's, vitamin D supplementation, strict immobilization for Charcot treatment. Her preoperative x-rays demonstrate subluxation medially and dorsally of the first metatarsal cuneiform articulation with flatfoot progression and also subluxation of the second metatarsal cuneiform. No soft tissue emphysema or significant clear osseous destruction was noted. There is no foreign body identified. Clinically her pulses remain palpable and she does have a fibrous ulcer to the medial foot that is adjacent to the bony prominence. Her Charcot foot has progressed and she presents today for resection of the prominent bone that is contributing to the ulcer site including bone biopsy to rule out underlying osteomyelitis. She understands if the bone biopsy comes back positive for osteomyelitis or instability continues with the midfoot, further surgery may be required and she is at high risk for limb loss. The preoperative indications, planned procedure, possible benefits, risks, complications, anticipated healing time and management were discussed in detail with patient. The complications and risks include but may not be limited to the following: Continued infection and Charcot progression, pain, swelling, scar, loss of limb, function, life, blood clots, allergic reaction, over under correction, deformity progression, chronic pain. She understands and elects to proceed with surgery at this time. No guarantees were made. The informed surgical consent and surgical limb were signed. I answered all of her questions. Her preoperative history and physical, medical and cardiac clearances, diagnostic labs and x-ray data were reviewed. Procedure in detail: The patient was transferred to the operating room via cart and placed on the operating table in the supine position. Final verification of the patient, surgery, and limb designation was performed in the timeout procedure. Well-padded pneumatic left ankle tourniquet was placed. Preoperative local anesthetic was administered by the podiatry team. MAC anesthesia was initiated by the anesthesia team. The left lower extremity was prepped and draped in the usual aseptic manner. [place] examination was performed to exsanguinate the left lower extremity. Surgery began in the following manner: Attention was first directed to the dorsal medial aspect of the left foot in which a curvilinear incision was made adjacent to the ulcer site. Blunt dissection was performed down to the capsular layer taking care to identify, protect, and retract all neurovascular structures at this point and throughout the remainder of surgery. The capsular layer was identified and a non skin blade scalpel was used to incise and exposed the prominent subluxed medial cuneiform first metatarsal area of concern. Closed reduction was attempted with manual manipulation of forefoot and midfoot as well as with the small joint distractor. Gross laxity is not noted and it appears that Charcot phase is no longer in a distinct acute phase. There is no purulence, deep tissue loss, or necrosis noted. The bone was fairly firm without distinct discoloration. Next, a cruz elevator was used to obtain good visualization of the subluxed prominent bone. A sagittal saw was used to resect the medial and dorsal prominent subluxed location and the planing /exostectomy portion of the case was completed. This resected bone was sent to both microbiology and pathology for further testing. The surgical site was copiously irrigated with normal saline. All prominent edges were smoothed with a rasp. Adequate resection was confirmed with intraoperative radiographs. No acute injuries were noted and the prominent osseous structure was resected adequately. Next, deep capsular closure was performed with Vicryl. The tourniquet was deflated at this time and brisk capillary refill time was noted to all digits of the left foot. No pulsatile bleeding was noted and minimal electrocauterization was used to maintain hemostasis. The skin was next reapproximated with nylon suture. A postoperative dressing consisting of Betadine soaked Adaptic, gauze, abdominal pad, Kerlix, and Arjun wrap were applied. Next a well-padded posterior mold splint with sugar was applied with the foot and ankle in a rectus position. After procedure: The patient tolerated the procedure and anesthesia well. She was transported to PACU with vital signs stable and vascular status intact to left lower extremity. She was advised to remain nonweightbearing in a strict manner. To elevate the limb for swelling and pain control. Postoperative pain medicine was ordered on an as-needed basis. Her neuropathy is noted. I recommend postoperative antibiotics for less than 24 hours. Her bone biopsy results are pending and will be monitored closely. She will be admitted for continued medical management and will see physical therapy in the morning to confirm if she can safely return home and also to provide additional gait and transfer training. She has struggled with this and this complicates her care plan. Medical management per medicine team is greatly appreciated. She will resume her DVT prophylaxis medication postoperatively. The postoperative x-rays were reviewed as previously noted. All postoperative orders were entered electronically. Ivanna Magana DPM, [facility]
[2018-06-17 16:56] LABS: M R Staph aureus DNA By PCR Negative (Negative); Probe Check PASS; Specimen Processing Control PASS; Staph aureus DNA By PCR NEGATIVE (Negative)
[2018-06-17 17:21] LABS: Bedside Glucose 134 mg/dL (70-110)
--- NOTE | 2018-06-17 18:20 | PCM.HP.STD ---
Problem List (1) Charcot's joint of left foot Status: Chronic (2) Ulcer of left foot Status: Acute (3) Type 2 diabetes mellitus with diabetic polyneuropathy Status: Chronic History of Present Illness Date of Admission: 06/17/18 Chief Complaint: s/p left foot charcot surgery This patient is a 73 year old F with comorbidities was admitted s/p left foot surgery. She has charcot foot with progressive subluxation of the midfoot with concurrent cellulitis. Her cellulitis has improved on oral antibiotics in the outpatient setting. She presented today for exostectomy of the prominent bone with bone biopsy. She denies new injuries or systemic illness at this time. Past Medical History Past Medical History (Chronic Problems): Chronic Problems (Last Reviewed 05/08/18 @ 13:15 by Madison Alicea) Charcot's joint of left foot (Chronic) Type 2 diabetes mellitus with diabetic polyneuropathy (Chronic) History of CVA (cerebrovascular accident) (Chronic) Peripheral arterial occlusive disease (Chronic) Stroke (Chronic) Stented coronary artery (Chronic 12/21/14) PTCA and YASIR to proximal and distal CX per Dr. Hatfield @ [facility]:(Promus Premier 4.0 X 12 mm L2 stent from distal left main into proximal LCX; Promus Premier RX 2.25 X 12 mm L1 stent in distal LCX) History of left heart catheterization (Chronic) CABG X 3 vessels [facility]:DANIEL to LAD, reverse SVG to dx and to 2nd OM per Dr. Borjas @ [facility] 09/09/2014; PTCA andDES to proximal and distal CX per Dr. Hatfield 12/21/2014; History of coronary artery bypass graft (Chronic) CABG X 3 vessels [facility]:DANIEL to LAD, reverse SVG to dx and to 2nd OM per Dr. Borjas @ [facility] 09/09/2014 Atherosclerotic heart disease of [place] coronary artery without angina pectoris (Chronic) CABG X 3 vessels [facility]: DANIEL to LAD, reverse SVG to dx and to 2nd OM per Dr. Borjas @ [facility] 09/09/2014; PTCA/YASIR to Left main, LAD, and OM1 per Dr. Hatfield 12/21/2014; C. 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) Carotid artery disease (Chronic) Xerosis of skin (Chronic) Malnutrition (Chronic) Ulcer of right foot with fat layer exposed (Chronic) Diabetes mellitus with polyneuropathy (Chronic) Peripheral vascular disease (Chronic) Hypertension (Chronic) Obesity (Chronic) Diabetes mellitus type II (Chronic) Chronic pain (Chronic) Fatty liver (Chronic) Hyperlipidemia (Chronic) Coronary artery disease (Chronic) Hypothyroidism (Chronic) Iron deficiency anemia (Chronic) GERD (gastroesophageal reflux disease) (Chronic) Vitamin D deficiency (Chronic) Insomnia (Chronic) Medical History: Medical History (Last Reviewed 05/08/18 @ 13:15 by Madison Alicea) History of CVA (cerebrovascular accident) (Chronic) Z86.73 Atherosclerotic heart disease of [place] coronary artery without angina pectoris (Chronic) I25.10 CABG X 3 vessels [facility]: DANIEL to LAD, reverse SVG to dx and to 2nd OM per Dr. Borjas @ [facility] 09/09/2014; PTCA/YASIR to Left main, LAD, and OM1 per Dr. Hatfield 12/21/2014; Diabetes mellitus (Chronic) E11.9 History of stroke (Chronic) Z86.73 Carotid artery disease (Chronic) I77.9 Malnutrition (Chronic) E46 Diabetes mellitus with polyneuropathy (Chronic) E11.42 Peripheral vascular disease (Chronic) I73.9 Hypertension (Chronic) I10 Chronic pain (Chronic) G89.29 Hyperlipidemia (Chronic) E78.5 Coronary artery disease (Chronic) I25.10 Hypothyroidism (Chronic) E03.9 Iron deficiency anemia (Chronic) D50.9 GERD (gastroesophageal reflux disease) (Chronic) K21.9 Allergies atorvastatin calcium [From Lipitor] Allergy (Verified 06/11/18 09:17) Unknown bupropion HCl [From Wellbutrin] Allergy (Verified 06/11/18 09:17) Unknown mannitol [From Reclast] Allergy (Verified 06/11/18 09:17) joint pain, unable to breathe, unable to walk propoxyphene napsylate [From Darvocet-N 100] Allergy (Verified 06/11/18 09:17) Unknown Quinolones Allergy (Verified 06/11/18 09:17) Unknown Tetanus Vaccines and Toxoid [Tetanus Vaccines & Toxoid] Allergy (Verified 06/11/18 09:17) Chest tightness tizanidine Allergy (Verified 06/11/18 09:17) Unknown zoledronic acid [From Reclast] Allergy (Verified 06/11/18 09:17) joint pain,unable to breathe, unaable to walk JOINT PAIN,UNABLE TO BREATHE,UNABLE TO WALK pravastatin Adverse Reaction (Severe, Verified 06/11/18 09:17) Myalgias gemfibrozil Adverse Reaction (Intermediate, Verified 06/11/18 09:17) Unknown NSAIDS (Non-Steroidal Anti-Inflamma Adverse Reaction (Verified 06/11/18 09:17) Other Home Medications: Ambulatory Orders Medication Instructions Recorded Aspirin [Aspirin, Baby] 81 mg PO DAILY@0800 03/10/17 Levothyroxine Sodium [Levoxyl] 75 mcg PO QHS 03/10/17 Nitroglycerin [Nitrostat] 0.4 mg SUBLINGUAL Q5M PRN 03/10/17 Pantoprazole Sodium [Protonix] 40 mg PO DAILY 03/10/17 Pravastatin Sodium 40 mg PO DAILY 03/10/17 Ergocalciferol [Vitamin D] 50,000 unit PO Q7D cap 07/08/17 Insulin Detemir [Levemir FlexPen] 30 units SC BID 07/25/17 clopidogrel 75 mg tablet 75 mg PO DAILY #90 tab 11/25/17 exyxss-voahdgyy-bopyylh 1 cap PO QAC cap 01/30/18 24,000-76,000-120,000 unit capsule,delayed rel amlodipine 5 mg tablet 5 mg PO QHS tab 05/05/18 allopurinol 100 mg tablet 100 mg PO DAILY 05/08/18 carvedilol 12.5 mg tablet 12.5 mg PO BID #180 tab 05/08/18 hydroxyzine HCl 50 mg tablet 25 mg PO TID-QID PRN tab 05/08/18 insulin aspart U- 100 100 unit/mL 14 unit SC TIDAC ml 05/08/18 subcutaneous pen quetiapine 50 mg tablet 100 mg PO QHS tab 05/08/18 alendronate 40 mg tablet 40 mg PO DAILY 90 Days #90 tab 05/22/18 isosorbide mononitrate ER 30 mg 30 mg PO BID tab 05/22/18 tablet,extended release 24 hr Cephalexin [Keflex] 500 mg PO Q12 #14 cap 06/07/18 Morphine Sulfate 3 ml PO DAILY 06/07/18 Lisinopril [Zestril] 10 mg PO DAILY 06/11/18 Surgical History: Surgical History (Last Reviewed 05/08/18 @ 13:15 by Madison Alicea) Stented coronary artery (Chronic) Onset Date: 12/21/14 Z95.5 PTCA and YASIR to proximal and distal CX per Dr. Hatfield @ [facility]:(Promus Premier 4.0 X 12 mm L2 stent from distal left main into proximal LCX; Promus Premier RX 2.25 X 12 mm L1 stent in distal LCX) History of left heart catheterization (Chronic) Z98.890 CABG X 3 vessels [facility]:DANIEL to LAD, reverse SVG to dx and to 2nd OM per Dr. Borjas @ [facility] 09/09/2014; PTCA andDES to proximal and distal CX per Dr. Hatfield 12/21/2014; History of coronary artery bypass graft (Chronic) Z95.1 CABG X 3 vessels [facility]:DANIEL to LAD, reverse SVG to dx and to 2nd OM per Dr. 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 Lives: Spouse/ Significant Other Smoking Status: Never smoker Tobacco Use: Non-smoker Alcohol: None Drugs: None - *Family History Paternal Family History: Family History (Last Reviewed 05/08/18 @ 13:15 by Madison Alicea) Mother Cancer CVA (cerebral vascular accident) CAD (coronary artery disease) Father CAD (coronary artery disease) History of coronary artery bypass graft Sister CAD (coronary artery disease) Multiple sclerosis History Items: No pertinent history Maternal Family History: Family History (Last Reviewed 05/08/18 @ 13:15 by Madison Alicea) Mother Cancer CVA (cerebral vascular accident) CAD (coronary artery disease) Father CAD (coronary artery disease) History of coronary artery bypass graft Sister CAD (coronary artery disease) Multiple sclerosis History Items: No pertinent history Review of Systems Constitutional: Denies: Chills, Fever Eyes: Denies: Double vision HEENT: Denies: Sore Throat Cardiovascular: Denies: Chest Pain, Claudication, Orthopnea, Palpitations Respiratory: Denies: Shortness of Breath Gastrointestinal: Denies: Abdominal Pain, Constipation, Diarrhea, Nausea, Vomiting Genitourinary: Reports: Incontinence Musculoskeletal: Denies: Leg Pain Skin: Reports: Skin Changes, Wounds. Denies: Pruritis Neurological: Reports: Balance problems, Incoordination, Numbness Psychiatric: Denies: Depression Endocrine: Reports: Polyuria Hematologic/ Lymphatic: Reports: Easy Bruising. Denies: Easy Bleeding VTE Information - Inpt Only VTE Present on Admission: No VTE Mechan Device Prophylaxis: SCD's VTE Pharm Prophylaxis ordered?: Yes Patient Problems: Active and Suspected Problems (Last Reviewed 05/08/18 @ 13:15 by Madison Alicea) Ulcer of left foot (Acute) - Physical Exam General: Alert, Oriented x3, Cooperative, No apparent distress HEENT: Atraumatic Oral: Moist Mucosa, No Gingival or Mucosal Lesions/ Ulcerations Neck: Supple, Negative Carotid Bruits, Trachea Midline Lungs: Clear to auscultation, Normal air movement, No wheeze Cardiovascular: Regular rate, Regular Rhythm, No murmurs Abdomen: Soft, Non Tender Extremities: Capillary Refill Less than 3 Seconds - all digits left foot, No Calf Tenderness, Diminished Peripheral Pulses, Peripheral Pulses Normal - palpable PT and DP pulse left foot Skin: Incision - medial foot with post operative dressing intact. no purulence or alejandro necrosis is noted Musculoskeletal: No Tenderness to Palpation of Joints or Extremities, Muscle Wasting, - - reduced surgical resection of medial midfoot prominence, left. rectus ankle. pes planus. healed right transmetatarsal amputation. AROM digits, left. AROM knees and hips bilateral Neurological: Cranial nerves II-XII grossly intact, - - lack of epicritic sensation via light touch left foot. negative clonus, bilateral lower extremity. moves upper and lower extremities Psych/Mental Status: Normal Affect, Appropriate, Alert and oriented to time, place, person, mood and affect Vital Signs Temp Pulse Resp BP Pulse Ox 98.2 F 78 18 104/44 L 100 06/17/18 17:46 06/17/18 17:46 06/17/18 17:46 06/17/18 17:46 06/17/18 17:46 Oxygen Delivery Method Room Air Weight: 80.5 kg Body Mass Index (BMI) 30.4 Finger Stick Blood Glucose 193 Intake and Output for Last 24 Hours 06/15/18 06/16/18 06/17/18 23:59 23:59 23:59 Intake Total 1775 / 1775 Output Total 140 / 140 Balance 1635 / 1635 Laboratory Tests Past 24 Hrs 06/17/18 14:59 S.aureus Protein A PCR NEGATIVE MRSA (PCR) Negative POC Glucose 06/17/18 06/17/18 17:11 12:37 POC Glucose 134 H 163 H Assessment/Plan All Active Problems (Last Reviewed 05/08/18 @ 13:15 by Madison Alicea) Ulcer of left foot (Acute) Abscess of right foot (Acute) Ulcer at the right metatarsal head (Acute) osteomylitis right little toe (Resolved) Severe sepsis (Resolved) Acute kidney injury (Resolved) Dehydration (Resolved) Acute delirium (Resolved) Hyponatremia (Resolved) Foot ulcer (Resolved) Osteomyelitis of right foot (Acute) Sepsis (Resolved) Hypotension (Resolved) UTI (urinary tract infection) (Resolved) Gangrene of toe (Resolved) Cellulitis of toe, right (Resolved) Gangrene (Resolved) s/p left foot charcot exostecomy resection with bone biopsy s/p splint application left lower extremity rule out osteomyelitis left foot diabetes mellitus with neuropathy malnutrition medical comorbidities: coronary artery disease, h/o stroke, hypertension, chronic pain, hyperlipidemia, hypertension, hypothyroidism, iron deficiency anemia, GERD, h/o c-diff, h/o mrsa, h/o delayed ulcers with infections/amputations, She is s/p left foot surgery. Post operative xrays were reviewed with resected prominent medial first cuneiform bone. Serial xrays, and charcot related lab trends will be followed in the outpatient setting (esr, crp, vit D). To keep splint clean, dry, intact. Strict non weightbearing left foot. Post operative IV antibiotics 24hrs; cefazolin ordered. There was no alejandro purulence or necrosis noted in surgery. Her peripheral cellulitis has improved. The resected bone cultures and pathology specimens are pending from surgery. CBC tomorrow am has been ordered. She is high risk for limb loss and understands this may be a staged procedure pending bone biopsy results and ongoing stability of this limb. Resume DVT prophylaxis tomorrow; orders placed. She will stay this evening for medical management during the post operative setting for medical management and for PT evaluation to confirm safe return home. She has many assistive devices at home and will need a chair lift; prescription provided. Pain medication ordered; to take as needed. To elevate limb. Blue nutritional supplementation ordered to optimize healing. Her vitals remain stable post operative. Medical management per primary team is appreciated. Discussed case with Dr. Moseley. Discharge planning is in process; will confirm pain controlled, grayson removed, and able to safely return home with the ability to remain non weightbearing during transfers. Please call if questions. Ivanna Magana DPM, F[facility] [phone]
--- NOTE | 2018-06-17 18:27 | HP.PCM_ITS ---
Problem List (1) Charcot's joint of left foot Status: Chronic (2) Ulcer of left foot Status: Acute (3) Type 2 diabetes mellitus with diabetic polyneuropathy Status: Chronic History of Present Illness Date of Admission: 06/17/18 Chief Complaint: s/p left foot charcot surgery This patient is a 73 year old F with comorbidities was admitted s/p left foot surgery. She has charcot foot with progressive subluxation of the midfoot with concurrent cellulitis. Her cellulitis has improved on oral antibiotics in the outpatient setting. She presented today for exostectomy of the prominent bone with bone biopsy. She denies new injuries or systemic illness at this time. Past Medical History Past Medical History (Chronic Problems): Chronic Problems (Last Reviewed 05/08/18 @ 13:15 by Madison Alicea) Charcot's joint of left foot (Chronic) Type 2 diabetes mellitus with diabetic polyneuropathy (Chronic) History of CVA (cerebrovascular accident) (Chronic) Peripheral arterial occlusive disease (Chronic) Stroke (Chronic) Stented coronary artery (Chronic 12/21/14) PTCA and YASIR to proximal and distal CX per Dr. Hatfield @ [facility]:(Promus Premier 4.0 X 12 mm L2 stent from distal left main into proximal LCX; Promus Premier RX 2.25 X 12 mm L1 stent in distal LCX) History of left heart catheterization (Chronic) CABG X 3 vessels [facility]:DANIEL to LAD, reverse SVG to dx and to 2nd OM per Dr. Borjas @ [facility] 09/09/2014; PTCA andDES to proximal and distal CX per Dr. Hatfield 12/21/2014; History of coronary artery bypass graft (Chronic) CABG X 3 vessels [facility]:DANIEL to LAD, reverse SVG to dx and to 2nd OM per Dr. Borjas @ [facility] 09/09/2014 Atherosclerotic heart disease of semin[place] coronary artery without angina pectoris (Chronic) CABG X 3 vessels [facility]: DANIEL to LAD, reverse SVG to dx and to 2nd OM per Dr. Borjas @ [facility] 09/09/2014; PTCA/YASIR to Left main, LAD, and OM1 per Dr. Hatfield 12/21/2014; C. 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) Carotid artery disease (Chronic) Xerosis of skin (Chronic) Malnutrition (Chronic) Ulcer of right foot with fat layer exposed (Chronic) Diabetes mellitus with polyneuropathy (Chronic) Peripheral vascular disease (Chronic) Hypertension (Chronic) Obesity (Chronic) Diabetes mellitus type II (Chronic) Chronic pain (Chronic) Fatty liver (Chronic) Hyperlipidemia (Chronic) Coronary artery disease (Chronic) Hypothyroidism (Chronic) Iron deficiency anemia (Chronic) GERD (gastroesophageal reflux disease) (Chronic) Vitamin D deficiency (Chronic) Insomnia (Chronic) Medical History: Medical History (Last Reviewed 05/08/18 @ 13:15 by Madison Alicea) History of CVA (cerebrovascular accident) (Chronic) Z86.73 Atherosclerotic heart disease of semin[place] coronary artery without angina pectoris (Chronic) I25.10 CABG X 3 vessels [facility]: DANIEL to LAD, reverse SVG to dx and to 2nd OM per Dr. Borjas @ [facility] 09/09/2014; PTCA/YASIR to Left main, LAD, and OM1 per Dr. Hatfield 12/21/2014; Diabetes mellitus (Chronic) E11.9 History of stroke (Chronic) Z86.73 Carotid artery disease (Chronic) I77.9 Malnutrition (Chronic) E46 Diabetes mellitus with polyneuropathy (Chronic) E11.42 Peripheral vascular disease (Chronic) I73.9 Hypertension (Chronic) I10 Chronic pain (Chronic) G89.29 Hyperlipidemia (Chronic) E78.5 Coronary artery disease (Chronic) I25.10 Hypothyroidism (Chronic) E03.9 Iron deficiency anemia (Chronic) D50.9 GERD (gastroesophageal reflux disease) (Chronic) K21.9 Allergies atorvastatin calcium [From Lipitor] Allergy (Verified 06/11/18 09:17) Unknown bupropion HCl [From Wellbutrin] Allergy (Verified 06/11/18 09:17) Unknown mannitol [From Reclast] Allergy (Verified 06/11/18 09:17) joint pain, unable to breathe, unable to walk propoxyphene napsylate [From Darvocet-N 100] Allergy (Verified 06/11/18 09:17) Unknown Quinolones Allergy (Verified 06/11/18 09:17) Unknown Tetanus Vaccines and Toxoid [Tetanus Vaccines & Toxoid] Allergy (Verified 06/11/18 09:17) Chest tightness tizanidine Allergy (Verified 06/11/18 09:17) Unknown zoledronic acid [From Reclast] Allergy (Verified 06/11/18 09:17) joint pain,unable to breathe, unaable to walk JOINT PAIN,UNABLE TO BREATHE,UNABLE TO WALK pravastatin Adverse Reaction (Severe, Verified 06/11/18 09:17) Myalgias gemfibrozil Adverse Reaction (Intermediate, Verified 06/11/18 09:17) Unknown NSAIDS (Non-Steroidal Anti-Inflamma Adverse Reaction (Verified 06/11/18 09:17) Other Home Medications: Ambulatory Orders Medication Instructions Recorded Aspirin [Aspirin, Baby] 81 mg PO DAILY@0800 03/10/17 Levothyroxine Sodium [Levoxyl] 75 mcg PO QHS 03/10/17 Nitroglycerin [Nitrostat] 0.4 mg SUBLINGUAL Q5M PRN 03/10/17 Pantoprazole Sodium [Protonix] 40 mg PO DAILY 03/10/17 Pravastatin Sodium 40 mg PO DAILY 03/10/17 Ergocalciferol [Vitamin D] 50,000 unit PO Q7D cap 07/08/17 Insulin Detemir [Levemir FlexPen] 30 units SC BID 07/25/17 clopidogrel 75 mg tablet 75 mg PO DAILY #90 tab 11/25/17 [id number] 1 cap PO QAC cap 01/30/18 24,000-76,000-120,000 unit capsule,delayed rel amlodipine 5 mg tablet 5 mg PO QHS tab 05/05/18 allopurinol 100 mg tablet 100 mg PO DAILY 05/08/18 carvedilol 12.5 mg tablet 12.5 mg PO BID #180 tab 05/08/18 hydroxyzine HCl 50 mg tablet 25 mg PO TID-QID PRN tab 05/08/18 insulin aspart U- 100 100 unit/mL 14 unit SC TIDAC ml 05/08/18 subcutaneous pen quetiapine 50 mg tablet 100 mg PO QHS tab 05/08/18 alendronate 40 mg tablet 40 mg PO DAILY 90 Days #90 tab 05/22/18 isosorbide mononitrate ER 30 mg 30 mg PO BID tab 05/22/18 tablet,extended release 24 hr Cephalexin [Keflex] 500 mg PO Q12 #14 cap 06/07/18 Morphine Sulfate 3 ml PO DAILY 06/07/18 Lisinopril [Zestril] 10 mg PO DAILY 06/11/18 Surgical History: Surgical History (Last Reviewed 05/08/18 @ 13:15 by Madison Alicea) Stented coronary artery (Chronic) Onset Date: 12/21/14 Z95.5 PTCA and YASIR to proximal and distal CX per Dr. Hatfield @ [facility]:(Promus Premier 4.0 X 12 mm L2 stent from distal left main into proximal LCX; Promus Premier RX 2.25 X 12 mm L1 stent in distal LCX) History of left heart catheterization (Chronic) Z98.890 CABG X 3 vessels [facility]:DANIEL to LAD, reverse SVG to dx and to 2nd OM per Dr. Borjas @ [facility] 09/09/2014; PTCA andDES to proximal and distal CX per Dr. Hatfield 12/21/2014; History of coronary artery bypass graft (Chronic) Z95.1 CABG X 3 vessels [facility]:DANIEL to LAD, reverse SVG to dx and to 2nd OM per Dr. 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 Lives: Spouse/ Significant Other Smoking Status: Never smoker Tobacco Use: Non-smoker Alcohol: None Drugs: None - *Family History Paternal Family History: Family History (Last Reviewed 05/08/18 @ 13:15 by Madison Alicea) Mother Cancer CVA (cerebral vascular accident) CAD (coronary artery disease) Father CAD (coronary artery disease) History of coronary artery bypass graft Sister CAD (coronary artery disease) Multiple sclerosis History Items: No pertinent history Maternal Family History: Family History (Last Reviewed 05/08/18 @ 13:15 by Madison Alicea) Mother Cancer CVA (cerebral vascular accident) CAD (coronary artery disease) Father CAD (coronary artery disease) History of coronary artery bypass graft Sister CAD (coronary artery disease) Multiple sclerosis History Items: No pertinent history Review of Systems Constitutional: Denies: Chills, Fever Eyes: Denies: Double vision HEENT: Denies: Sore Throat Cardiovascular: Denies: Chest Pain, Claudication, Orthopnea, Palpitations Respiratory: Denies: Shortness of Breath Gastrointestinal: Denies: Abdominal Pain, Constipation, Diarrhea, Nausea, Vomiting Genitourinary: Reports: Incontinence Musculoskeletal: Denies: Leg Pain Skin: Reports: Skin Changes, Wounds. Denies: Pruritis Neurological: Reports: Balance problems, Incoordination, Numbness Psychiatric: Denies: Depression Endocrine: Reports: Polyuria Hematologic/ Lymphatic: Reports: Easy Bruising. Denies: Easy Bleeding VTE Information - Inpt Only VTE Present on Admission: No VTE Mechan Device Prophylaxis: SCD's VTE Pharm Prophylaxis ordered?: Yes Patient Problems: Active and Suspected Problems (Last Reviewed 05/08/18 @ 13:15 by Madison Alicea) Ulcer of left foot (Acute) - Physical Exam General: Alert, Oriented x3, Cooperative, No apparent distress HEENT: Atraumatic Oral: Moist Mucosa, No Gingival or Mucosal Lesions/ Ulcerations Neck: Supple, Negative Carotid Bruits, Trachea Midline Lungs: Clear to auscultation, Normal air movement, No wheeze Cardiovascular: Regular rate, Regular Rhythm, No murmurs Abdomen: Soft, Non Tender Extremities: Capillary Refill Less than 3 Seconds - all digits left foot, No Calf Tenderness, Diminished Peripheral Pulses, Peripheral Pulses Normal - palpable PT and DP pulse left foot Skin: Incision - medial foot with post operative dressing intact. no purulence or alejandro necrosis is noted Musculoskeletal: No Tenderness to Palpation of Joints or Extremities, Muscle Wasting, - - reduced surgical resection of medial midfoot prominence, left. rectus ankle. pes planus. healed right transmetatarsal amputation. AROM digits, left. AROM knees and hips bilateral Neurological: Cranial nerves II-XII grossly intact, - - lack of epicritic sensation via light touch left foot. negative clonus, bilateral lower extremity. moves upper and lower extremities Psych/Mental Status: Normal Affect, Appropriate, Alert and oriented to time, place, person, mood and affect Vital Signs Temp Pulse Resp BP Pulse Ox 98.2 F 78 18 104/44 L 100 06/17/18 17:46 06/17/18 17:46 06/17/18 17:46 06/17/18 17:46 06/17/18 17:46 Oxygen Delivery Method Room Air Weight: 80.5 kg Body Mass Index (BMI) 30.4 Finger Stick Blood Glucose 193 Intake and Output for Last 24 Hours 06/15/18 06/16/18 06/17/18 23:59 23:59 23:59 Intake Total 1775 / 1775 Output Total 140 / 140 Balance 1635 / 1635 Laboratory Tests Past 24 Hrs 06/17/18 14:59 S.aureus Protein A PCR NEGATIVE MRSA (PCR) Negative POC Glucose 06/17/18 06/17/18 17:11 12:37 POC Glucose 134 H 163 H Assessment/Plan All Active Problems (Last Reviewed 05/08/18 @ 13:15 by Madison Alicea) Ulcer of left foot (Acute) Abscess of right foot (Acute) Ulcer at the right metatarsal head (Acute) osteomylitis right little toe (Resolved) Severe sepsis (Resolved) Acute kidney injury (Resolved) Dehydration (Resolved) Acute delirium (Resolved) Hyponatremia (Resolved) Foot ulcer (Resolved) Osteomyelitis of right foot (Acute) Sepsis (Resolved) Hypotension (Resolved) UTI (urinary tract infection) (Resolved) Gangrene of toe (Resolved) Cellulitis of toe, right (Resolved) Gangrene (Resolved) s/p left foot charcot exostecomy resection with bone biopsy s/p splint application left lower extremity rule out osteomyelitis left foot diabetes mellitus with neuropathy malnutrition medical comorbidities: coronary artery disease, h/o stroke, hypertension, chronic pain, hyperlipidemia, hypertension, hypothyroidism, iron deficiency anemia, GERD, h/o c-diff, h/o mrsa, h/o delayed ulcers with infections/amputations, She is s/p left foot surgery. Post operative xrays were reviewed with resected prominent medial first cuneiform bone. Serial xrays, and charcot related lab trends will be followed in the outpatient setting (esr, crp, vit D). To keep splint clean, dry, intact. Strict non weightbearing left foot. Post operative IV antibiotics 24hrs; cefazolin ordered. There was no alejandro purulence or necrosis noted in surgery. Her peripheral cellulitis has improved. The resected bone cultures and pathology specimens are pending from surgery. CBC tomorrow am has been ordered. She is high risk for limb loss and understands this may be a staged procedure pending bone biopsy results and ongoing stability of this limb. Resume DVT prophylaxis tomorrow; orders placed. She will stay this evening for medical management during the post operative setting for medical management and for PT evaluation to confirm safe return home. She has many assistive devices at home and will need a chair lift; prescription provided. Pain medication ordered; to take as needed. To elevate limb. Blue nutritional supplementation ordered to optimize healing. Her vitals remain stable post operative. Medical management per primary team is appreciated. Discussed case with Dr. Moseley. Discharge planning is in process; will confirm pain controlled, grayson removed, and able to safely return home with the ability to remain non weightbearing during transfers. Please call if questions. Ivanna Magana DPM, F[facility] [phone]
[2018-06-17] MEDS: HYDROcodone Bitartrate/Apap 5/325 Tablet PO (19:10)
--- NOTE | 2018-06-17 19:44 | PCM.CONS.GEN ---
Problem List (1) Charcot's joint of left foot Status: Chronic (2) Ulcer of left foot Status: Acute (3) Type 2 diabetes mellitus with diabetic polyneuropathy Status: Chronic (4) History of CVA (cerebrovascular accident) Status: Chronic (5) Peripheral arterial occlusive disease Status: Chronic (6) Stroke Status: Chronic (7) Abscess of right foot Status: Acute (8) Ulcer at the right metatarsal head Status: Acute (9) Stented coronary artery Status: Chronic Comment: PTCA and YASIR to proximal and distal CX per Dr. Hatfield @ [facility], [place]:(Promus Premier 4.0 X 12 mm L2 stent from distal left main into proximal LCX; Promus Premier RX 2.25 X 12 mm L1 stent in distal LCX) (10) History of left heart catheterization Status: Chronic Comment: CABG X 3 vessels [facility] [place]:DANIEL to LAD, reverse SVG to dx and to 2nd OM per Dr. Borjas @ [facility] [place] 09/09/2014; PTCA andDES to proximal and distal CX per Dr. Hatfield 12/21/2014; (11) History of coronary artery bypass graft Status: Chronic Comment: CABG X 3 vessels [facility] [place]:DANIEL to LAD, reverse SVG to dx and to 2nd OM per Dr. Borjas @ [facility] [place] 09/09/2014 (12) Atherosclerotic heart disease of [place] coronary artery without angina pectoris Status: Chronic Qualifiers: Three Affiliated vs. transplanted heart: [place] heart Qualified Code(s): I25.10 - Atherosclerotic heart disease of [place] coronary artery without angina pectoris Comment: CABG X 3 vessels [facility] [place]: DANIEL to LAD, reverse SVG to dx and to 2nd OM per Dr. Borjas @ [facility] [place] 09/09/2014; PTCA/YASIR to Left main, LAD, and OM1 per Dr. Hatfield 12/21/2014; (13) C. 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 (17) Osteomyelitis of right foot Status: Acute (18) Carotid artery disease Status: Chronic Qualifiers: Laterality: bilateral (19) Xerosis of skin Status: Chronic (20) Malnutrition Status: Chronic (21) Ulcer of right foot with fat layer exposed Status: Chronic (22) Diabetes mellitus with polyneuropathy Status: Chronic Qualifiers: (23) Peripheral vascular disease Status: Chronic (24) Hypertension Status: Chronic Qualifiers: Hypertension type: essential hypertension Qualified Code(s): I10 - Essential (primary) hypertension (25) Obesity Status: Chronic Qualifiers: Obesity type: due to excess calories Obesity classification: adult class 1 (BMI 30 - 34.9) Body mass index: BMI 31.0-31.9 (26) Diabetes mellitus type II Status: Chronic (27) Chronic pain Status: Chronic Qualifiers: (28) Fatty liver Status: Chronic (29) Hyperlipidemia Status: Chronic Qualifiers: Hyperlipidemia type: mixed hyperlipidemia Qualified Code(s): E78.2 - Mixed hyperlipidemia (30) Coronary artery disease Status: Chronic Qualifiers: (31) Hypothyroidism Status: Chronic Qualifiers: (32) Iron deficiency anemia Status: Chronic Qualifiers: (33) GERD (gastroesophageal reflux disease) Status: Chronic Qualifiers: (34) Vitamin D deficiency Status: Chronic (35) Insomnia Status: Chronic Qualifiers: Reason for Consult Date of Consultation: 06/17/18 Reason for Consultation: Medical management of multiple comorbidities History of Present Illness: The patient is a 73 year old F with multiple comorbidities as listed above including type 2 diabetes mellitus who is admitted by recovery rn electively for surgery of Exostectomy left foot with bone biopsy for Charcot joint of midfoot dislocation and ulcer formation, rule out osteomyelitis. Patient left foot is normal after anesthesia. She denies any chest pain, shortness of breath, palpitation, abdominal pain. She denies new lower urinary tract symptoms except she has increased frequency secondary to diabetes mellitus and being on diuretics. She has Maloney catheter. She has multiple comorbidities including type 1 diabetes mellitus with diabetic polyneuropathy, Charcot joint, coronary artery disease status post triple vessel CABG, stents, last one as per patient 2 years ago, osteomyelitis of right foot, history of C. difficile colitis, acute kidney injury, carotid artery disease, and hypertension [] Past Medical History Past Medical History (Chronic Problems): Chronic Problems (Last Reviewed 05/08/18 @ 13:15 by Madison Alicea) Charcot's joint of left foot (Chronic) Type 2 diabetes mellitus with diabetic polyneuropathy (Chronic) History of CVA (cerebrovascular accident) (Chronic) Peripheral arterial occlusive disease (Chronic) Stroke (Chronic) Stented coronary artery (Chronic 12/21/14) PTCA and YASIR to proximal and distal CX per Dr. Hatfield @ [facility] [place]:(Promus Premier 4.0 X 12 mm L2 stent from distal left main into proximal LCX; Promus Premier RX 2.25 X 12 mm L1 stent in distal LCX) History of left heart catheterization (Chronic) CABG X 3 vessels [facility] [place]:DANIEL to LAD, reverse SVG to dx and to 2nd OM per Dr. Borjas @ [facility] [place] 09/09/2014; PTCA andDES to proximal and distal CX per Dr. Hatfield 12/21/2014; History of coronary artery bypass graft (Chronic) CABG X 3 vessels [facility] [place]:DANIEL to LAD, reverse SVG to dx and to 2nd OM per Dr. Borjas @ [facility] [place] 09/09/2014 Atherosclerotic heart disease of [place] coronary artery without angina pectoris (Chronic) CABG X 3 vessels [facility] [place]: DANIEL to LAD, reverse SVG to dx and to 2nd OM per Dr. Bojras @ [facility] [place] 09/09/2014; PTCA/YASIR to Left main, LAD, and OM1 per Dr. Hatfield 12/21/2014; C. 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) Carotid artery disease (Chronic) Xerosis of skin (Chronic) Malnutrition (Chronic) Ulcer of right foot with fat layer exposed (Chronic) Diabetes mellitus with polyneuropathy (Chronic) Peripheral vascular disease (Chronic) Hypertension (Chronic) Obesity (Chronic) Diabetes mellitus type II (Chronic) Chronic pain (Chronic) Fatty liver (Chronic) Hyperlipidemia (Chronic) Coronary artery disease (Chronic) Hypothyroidism (Chronic) Iron deficiency anemia (Chronic) GERD (gastroesophageal reflux disease) (Chronic) Vitamin D deficiency (Chronic) Insomnia (Chronic) Medical History: Medical History (Last Reviewed 05/08/18 @ 13:15 by Madison Alicea) History of CVA (cerebrovascular accident) (Chronic) Z86.73 Atherosclerotic heart disease of [place] coronary artery without angina pectoris (Chronic) I25.10 CABG X 3 vessels [facility] [place]: DANIEL to LAD, reverse SVG to dx and to 2nd OM per Dr. Borjas @ [facility] [place] 09/09/2014; PTCA/YASIR to Left main, LAD, and OM1 per Dr. Hatfield 12/21/2014; Diabetes mellitus (Chronic) E11.9 History of stroke (Chronic) Z86.73 Carotid artery disease (Chronic) I77.9 Malnutrition (Chronic) E46 Diabetes mellitus with polyneuropathy (Chronic) E11.42 Peripheral vascular disease (Chronic) I73.9 Hypertension (Chronic) I10 Chronic pain (Chronic) G89.29 Hyperlipidemia (Chronic) E78.5 Coronary artery disease (Chronic) I25.10 Hypothyroidism (Chronic) E03.9 Iron deficiency anemia (Chronic) D50.9 GERD (gastroesophageal reflux disease) (Chronic) K21.9 Allergies atorvastatin calcium [From Lipitor] Allergy (Verified 06/11/18 09:17) Unknown bupropion HCl [From Wellbutrin] Allergy (Verified 06/11/18 09:17) Unknown mannitol [From Reclast] Allergy (Verified 06/11/18 09:17) joint pain, unable to breathe, unable to walk propoxyphene napsylate [From Darvocet-N 100] Allergy (Verified 06/11/18 09:17) Unknown Quinolones Allergy (Verified 06/11/18 09:17) Unknown Tetanus Vaccines and Toxoid [Tetanus Vaccines & Toxoid] Allergy (Verified 06/11/18 09:17) Chest tightness tizanidine Allergy (Verified 06/11/18 09:17) Unknown zoledronic acid [From Reclast] Allergy (Verified 06/11/18 09:17) joint pain,unable to breathe, unaable to walk JOINT PAIN,UNABLE TO BREATHE,UNABLE TO WALK pravastatin Adverse Reaction (Severe, Verified 06/11/18 09:17) Myalgias gemfibrozil Adverse Reaction (Intermediate, Verified 06/11/18 09:17) Unknown NSAIDS (Non-Steroidal Anti-Inflamma Adverse Reaction (Verified 06/11/18 09:17) Other Home Medications: Ambulatory Orders Medication Instructions Recorded Aspirin [Aspirin, Baby] 81 mg PO DAILY@0800 03/10/17 Levothyroxine Sodium [Levoxyl] 75 mcg PO QHS 03/10/17 Nitroglycerin [Nitrostat] 0.4 mg SUBLINGUAL Q5M PRN 03/10/17 Pantoprazole Sodium [Protonix] 40 mg PO DAILY 03/10/17 Pravastatin Sodium 40 mg PO DAILY 03/10/17 Ergocalciferol [Vitamin D] 50,000 unit PO Q7D cap 07/08/17 Insulin Detemir [Levemir FlexPen] 30 units SC BID 07/25/17 clopidogrel 75 mg tablet 75 mg PO DAILY #90 tab 11/25/17 rqilxw-[id number]-upeefrh 1 cap PO QAC cap 01/30/18 24,000-76,000-120,000 unit capsule,delayed rel amlodipine 5 mg tablet 5 mg PO QHS tab 05/05/18 allopurinol 100 mg tablet 100 mg PO DAILY 05/08/18 carvedilol 12.5 mg tablet 12.5 mg PO BID #180 tab 05/08/18 hydroxyzine HCl 50 mg tablet 25 mg PO TID-QID PRN tab 05/08/18 insulin aspart U- 100 100 unit/mL 14 unit SC TIDAC ml 05/08/18 subcutaneous pen quetiapine 50 mg tablet 100 mg PO QHS tab 05/08/18 alendronate 40 mg tablet 40 mg PO DAILY 90 Days #90 tab 05/22/18 isosorbide mononitrate ER 30 mg 30 mg PO BID tab 05/22/18 tablet,extended release 24 hr Cephalexin [Keflex] 500 mg PO Q12 #14 cap 06/07/18 Morphine Sulfate 3 ml PO DAILY 06/07/18 Lisinopril [Zestril] 10 mg PO DAILY 06/11/18 Surgical History: Surgical History (Last Reviewed 05/08/18 @ 13:15 by Madison Alicea) Stented coronary artery (Chronic) Onset Date: 12/21/14 Z95.5 PTCA and YASIR to proximal and distal CX per Dr. Hatfield @ [facility] [place]:(Promus Premier 4.0 X 12 mm L2 stent from distal left main into proximal LCX; Promus Premier RX 2.25 X 12 mm L1 stent in distal LCX) History of left heart catheterization (Chronic) Z98.890 CABG X 3 vessels [facility] [place]:DANIEL to LAD, reverse SVG to dx and to 2nd OM per Dr. Borjas @ [facility] [place] 09/09/2014; PTCA andDES to proximal and distal CX per Dr. Hatfield 12/21/2014; History of coronary artery bypass graft (Chronic) Z95.1 CABG X 3 vessels [facility] [place]:DANIEL to LAD, reverse SVG to dx and to 2nd OM per Dr. Borjas @ [facility] [place] 09/09/2014 Surgical History: appendectomy, coronary bypass surgery, gastric bypass, tonsillectomy, - - Cardiac stent, , Carpal tunnel release, 3rd toe amputation, carotid endarterectomy, right foot 5th ray amputation, right foot transmetatarsal amputation. Psychiatric History: Anxiety, Depression FINANCE ADVISOR History: No pertinent FINANCE ADVISOR history Smoking Status: Never smoker Tobacco Use: Non-smoker - *Family History Paternal Family History: Family History (Last Reviewed 05/08/18 @ 13:15 by Madison Alicea) Mother Cancer CVA (cerebral vascular accident) CAD (coronary artery disease) Father CAD (coronary artery disease) History of coronary artery bypass graft Sister CAD (coronary artery disease) Multiple sclerosis History Items: No pertinent history Maternal Family History: Family History (Last Reviewed 05/08/18 @ 13:15 by Madison Alicea) Mother Cancer CVA (cerebral vascular accident) CAD (coronary artery disease) Father CAD (coronary artery disease) History of coronary artery bypass graft Sister CAD (coronary artery disease) Multiple sclerosis History Items: No pertinent history Review of Systems Constitutional: Denies: Chills, Fever, Weight Change HEENT: Denies: Head Aches, Sinus Congestion, Sinus Drainage Cardiovascular: Denies: Chest Pain, Palpitations Respiratory: Denies: Cough, Shortness of breath at rest, Sputum production Gastrointestinal: Denies: Abdominal Pain, Nausea, Vomiting Genitourinary: Denies: Dysuria Musculoskeletal: Reports: Back Pain, Joint Pain. Denies: Joint Tenderness Skin: Denies: Rash, Wounds Neurological: Denies: Numbness, Tingling, Focal weakness Psychiatric: Reports: Anxiety. Denies: Depression, Homicidal Ideations, Suicidal Ideations Hematologic/ Lymphatic: Denies: Easy Bruising, Easy Bleeding Patient Problems: Active and Suspected Problems (Last Reviewed 05/08/18 @ 13:15 by Madison Alicea) Ulcer of left foot (Acute) - Physical Exam General: Alert, Oriented x3, Cooperative HEENT: Atraumatic, PERRLA, EOMI, Normocephalic Neck: Supple, No JVD, Negative Carotid Bruits Lungs: Clear to auscultation, Normal air movement, No rhonchi, No wheeze, No rales Cardiovascular: Regular rate, Regular Rhythm, Normal S1, Normal S2, Irregular Rate, Murmur Abdomen: Bowel Sounds Present, Soft, Non Tender, Non-Distended Extremities: No edema, Capillary Refill Less than 3 Seconds Skin: No rashes, No breakdown Musculoskeletal: No Tenderness to Palpation of Joints or Extremities, Arthritic Changes, Tenderness Neurological: Cranial nerves II-XII grossly intact, Deep Tendon Reflexes 2+/4 and Symmetrical, Neuro grossly intact, - - Numbness present in the left foot and left leg. Psych/Mental Status: Normal Affect, Appropriate Vital Signs Temp Pulse Resp BP Pulse Ox 98.2 F 78 18 104/44 L 100 06/17/18 17:46 06/17/18 17:46 06/17/18 17:46 06/17/18 17:46 06/17/18 17:46 Oxygen Delivery Method Room Air Weight: 177 lb 7.554 oz Body Mass Index (BMI) 30.4 Finger Stick Blood Glucose 193 Intake and Output for Last 24 Hours 06/15/18 06/16/18 06/17/18 23:59 23:59 23:59 Intake Total 1775 / 1775 Output Total 140 / 140 Balance 1635 / 1635 Laboratory Tests Past 24 Hrs 06/17/18 14:59 S.aureus Protein A PCR NEGATIVE MRSA (PCR) Negative POC Glucose 06/17/18 06/17/18 17:11 12:37 POC Glucose 134 H 163 H Assessment/Plan All Active Problems (Last Reviewed 05/08/18 @ 13:15 by Madison Alicea) Ulcer of left foot (Acute) Abscess of right foot (Acute) Ulcer at the right metatarsal head (Acute) osteomylitis right little toe (Resolved) Severe sepsis (Resolved) Acute kidney injury (Resolved) Dehydration (Resolved) Acute delirium (Resolved) Hyponatremia (Resolved) Foot ulcer (Resolved) Osteomyelitis of right foot (Acute) Sepsis (Resolved) Hypotension (Resolved) UTI (urinary tract infection) (Resolved) Gangrene of toe (Resolved) Cellulitis of toe, right (Resolved) Gangrene (Resolved) The patient is a 73 year old F with multiple comorbidities as listed above including type 2 diabetes mellitus who is admitted by recovery rn electively for surgery of Exostectomy left foot with bone biopsy for Charcot joint of midfoot dislocation and ulcer formation, rule out osteomyelitis. Patient left foot is normal after anesthesia. She denies any chest pain, shortness of breath, palpitation, abdominal pain. She denies new lower urinary tract symptoms except she has increased frequency secondary to diabetes mellitus and being on diuretics. She has Maloney catheter. She has multiple comorbidities including type 1 diabetes mellitus with diabetic polyneuropathy, Charcot joint, coronary artery disease status post triple vessel CABG, stents, last one as per patient 2 years ago, osteomyelitis of right foot, history of C. difficile colitis, acute kidney injury, carotid artery disease, and hypertension. [] 1. Charcot joint of the left foot status post Exostectomy left foot with bone biopsy: The patient is being admitted by recovery rn on regular [facility] floor. Pain control. 2. Coronary artery disease status post CABG and stents: Patient had dobutamine stress test in December 2017 and was negative for ischemia by EKG and echocardiographic criteria. Estimated EF 65%. 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 Since patient has irregular heartbeat, twelve-lead EKG ordered. Check BMP, magnesium. 3. Diabetes mellitus type 2: Patient is on Levemir 30 units twice daily and insulin aspart 14 units subcu 3 times daily pre-meal. Accu-Chek S and at bedtime cover with NovoLog sliding scale. A1c tomorrow a.m. 4. Hypertension: Blood pressure is controlled. 5. Other chronic history includes hypothyroidism, carotid artery disease, hypertension and osteomyelitis of right foot: Home medication reconciliation done. DVT prophylaxis: On Lovenox 40 minutes of daily. discontinue if platelet count drops less than 90,000 or hemoglobin less than 8 g% This note was generated with [employer] dictation software. Every effort was made to ensure accuracy, however computerized instructional leader mistakes may persist. Active Medications Hydrocodone Bitart/Acetaminophen ([place] 5mg-325mg) 1 tablet PO Q6H PRN PRN PRN Reason: SEVERE PAIN ([id number]) Last Admin: 06/17/18 19:10 Dose: 1 tablet Enoxaparin Sodium (Lovenox) 40 mg SC DAILY [facility] Cefazolin Sodium 2 gm/ Sodium (Chloride) 110 mls @ 150 mls/hr IV Q8 [facility] Stop: 06/18/18 19:00 Last Admin: 06/17/18 19:51 Dose: 150 mls/hr Nutritional Formula (Blue - Turner Flavor) 1 packet PO BIDCM [facility] Last Admin: 06/17/18 19:08 Dose: 1 packet Ondansetron HCl (Zofran) 4 mg IV Q8H PRN PRN PRN Reason: NAUSEA/VOMITING Sodium Chloride () 5 - 15 ml IV UD PRN PRN Reason: SALINE FLUSH Laboratory Results 06/17/18 12:37: POC Glucose 163 H 06/17/18 14:59: S.aureus Protein A PCR NEGATIVE, MRSA (PCR) Negative 06/17/18 17:11: POC Glucose 134 H Clinical Impression(s) from Imaging Studies Chest X-Ray 06/13/18 15:20 IMPRESSION: No acute abnormality is seen. Code Visit Inpatient E&M: 50649 Init Hosp L3
--- NOTE | 2018-06-17 19:50 | CON.PCM_ITS ---
Problem List (1) Charcot's joint of left foot Status: Chronic (2) Ulcer of left foot Status: Acute (3) Type 2 diabetes mellitus with diabetic polyneuropathy Status: Chronic (4) History of CVA (cerebrovascular accident) Status: Chronic (5) Peripheral arterial occlusive disease Status: Chronic (6) Stroke Status: Chronic (7) Abscess of right foot Status: Acute (8) Ulcer at the right metatarsal head Status: Acute (9) Stented coronary artery Status: Chronic Comment: PTCA and YASIR to proximal and distal CX per Dr. Hatfield @ [facility]:(Promus Premier 4.0 X 12 mm L2 stent from distal left main into proximal LCX; Promus Premier RX 2.25 X 12 mm L1 stent in distal LCX) (10) History of left heart catheterization Status: Chronic Comment: CABG X 3 vessels [facility]:DANIEL to LAD, reverse SVG to dx and to 2nd OM per Dr. Borjas @ [facility] 09/09/2014; PTCA andDES to proximal and distal CX per Dr. Hatfield 12/21/2014; (11) History of coronary artery bypass graft Status: Chronic Comment: CABG X 3 vessels [facility]:DANIEL to LAD, reverse SVG to dx and to 2nd OM per Dr. 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 transplanted heart: grayling heart Qualified Code(s): I25.10 - Atherosclerotic heart disease of grayling coronary artery without angina pectoris Comment: CABG X 3 vessels [facility]: DANIEL to LAD, reverse SVG to dx and to 2nd OM per Dr. Borjas @ [facility] 09/09/2014; PTCA/YASIR to Left main, LAD, and OM1 per Dr. Hatfield 12/21/2014; (13) C. 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 (17) Osteomyelitis of right foot Status: Acute (18) Carotid artery disease Status: Chronic Qualifiers: Laterality: bilateral (19) Xerosis of skin Status: Chronic (20) Malnutrition Status: Chronic (21) Ulcer of right foot with fat layer exposed Status: Chronic (22) Diabetes mellitus with polyneuropathy Status: Chronic Qualifiers: (23) Peripheral vascular disease Status: Chronic (24) Hypertension Status: Chronic Qualifiers: Hypertension type: essential hypertension Qualified Code(s): I10 - Essential (primary) hypertension (25) Obesity Status: Chronic Qualifiers: Obesity type: due to excess calories Obesity classification: adult class 1 (BMI 30 - 34.9) Body mass index: BMI 31.0-31.9 (26) Diabetes mellitus type II Status: Chronic (27) Chronic pain Status: Chronic Qualifiers: (28) Fatty liver Status: Chronic (29) Hyperlipidemia Status: Chronic Qualifiers: Hyperlipidemia type: mixed hyperlipidemia Qualified Code(s): E78.2 - Mixed hyperlipidemia (30) Coronary artery disease Status: Chronic Qualifiers: (31) Hypothyroidism Status: Chronic Qualifiers: (32) Iron deficiency anemia Status: Chronic Qualifiers: (33) GERD (gastroesophageal reflux disease) Status: Chronic Qualifiers: (34) Vitamin D deficiency Status: Chronic (35) Insomnia Status: Chronic Qualifiers: Reason for Consult Date of Consultation: 06/17/18 Reason for Consultation: Medical management of multiple comorbidities History of Present Illness: The patient is a 73 year old F with multiple comorbidities as listed above including type 2 diabetes mellitus who is admitted by rn recovery electively for surgery of Exostectomy left foot with bone biopsy for Charcot joint of midfoot dislocation and ulcer formation, rule out osteomyelitis. Patient left foot is normal after anesthesia. She denies any chest pain, shortness of breath, palpitation, abdominal pain. She denies new lower urinary tract symptoms except she has increased frequency secondary to diabetes mellitus and being on diuretics. She has Maloney catheter. She has multiple comorbidities including type 1 diabetes mellitus with diabetic polyneuropathy, Charcot joint, coronary artery disease status post triple vessel CABG, stents, last one as per patient 2 years ago, osteomyelitis of right foot, history of C. difficile colitis, acute kidney injury, carotid artery disease, and hypertension [] Past Medical History Past Medical History (Chronic Problems): Chronic Problems (Last Reviewed 05/08/18 @ 13:15 by Madison Alicea) Charcot's joint of left foot (Chronic) Type 2 diabetes mellitus with diabetic polyneuropathy (Chronic) History of CVA (cerebrovascular accident) (Chronic) Peripheral arterial occlusive disease (Chronic) Stroke (Chronic) Stented coronary artery (Chronic 12/21/14) PTCA and YASIR to proximal and distal CX per Dr. Hatfield @ [facility]:(Promus Premier 4.0 X 12 mm L2 stent from distal left main into proximal LCX; Promus Premier RX 2.25 X 12 mm L1 stent in distal LCX) History of left heart catheterization (Chronic) CABG X 3 vessels [facility]:DANIEL to LAD, reverse SVG to dx and to 2nd OM per Dr. Borjas @ [facility] 09/09/2014; PTCA andDES to proximal and distal CX per Dr. Hatfield 12/21/2014; History of coronary artery bypass graft (Chronic) CABG X 3 vessels [facility]:DANIEL to LAD, reverse SVG to dx and to 2nd OM per Dr. Borjas @ [facility] 09/09/2014 Atherosclerotic heart disease of grayling coronary artery without angina pectoris (Chronic) CABG X 3 vessels [facility]: DANIEL to LAD, reverse SVG to dx and to 2nd OM per Dr. Borjas @ [facility] 09/09/2014; PTCA/YASIR to Left main, LAD, and OM1 per Dr. Hatfield 12/21/2014; C. 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) Carotid artery disease (Chronic) Xerosis of skin (Chronic) Malnutrition (Chronic) Ulcer of right foot with fat layer exposed (Chronic) Diabetes mellitus with polyneuropathy (Chronic) Peripheral vascular disease (Chronic) Hypertension (Chronic) Obesity (Chronic) Diabetes mellitus type II (Chronic) Chronic pain (Chronic) Fatty liver (Chronic) Hyperlipidemia (Chronic) Coronary artery disease (Chronic) Hypothyroidism (Chronic) Iron deficiency anemia (Chronic) GERD (gastroesophageal reflux disease) (Chronic) Vitamin D deficiency (Chronic) Insomnia (Chronic) Medical History: Medical History (Last Reviewed 05/08/18 @ 13:15 by Madison Alicea) History of CVA (cerebrovascular accident) (Chronic) Z86.73 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 Borjas @ [facility] 09/09/2014; PTCA/YASIR to Left main, LAD, and OM1 per Dr. Hatfield 12/21/2014; Diabetes mellitus (Chronic) E11.9 History of stroke (Chronic) Z86.73 Carotid artery disease (Chronic) I77.9 Malnutrition (Chronic) E46 Diabetes mellitus with polyneuropathy (Chronic) E11.42 Peripheral vascular disease (Chronic) I73.9 Hypertension (Chronic) I10 Chronic pain (Chronic) G89.29 Hyperlipidemia (Chronic) E78.5 Coronary artery disease (Chronic) I25.10 Hypothyroidism (Chronic) E03.9 Iron deficiency anemia (Chronic) D50.9 GERD (gastroesophageal reflux disease) (Chronic) K21.9 Allergies atorvastatin calcium [From Lipitor] Allergy (Verified 06/11/18 09:17) Unknown bupropion HCl [From Wellbutrin] Allergy (Verified 06/11/18 09:17) Unknown mannitol [From Reclast] Allergy (Verified 06/11/18 09:17) joint pain, unable to breathe, unable to walk propoxyphene napsylate [From Darvocet-N 100] Allergy (Verified 06/11/18 09:17) Unknown Quinolones Allergy (Verified 06/11/18 09:17) Unknown Tetanus Vaccines and Toxoid [Tetanus Vaccines & Toxoid] Allergy (Verified 06/11/18 09:17) Chest tightness tizanidine Allergy (Verified 06/11/18 09:17) Unknown zoledronic acid [From Reclast] Allergy (Verified 06/11/18 09:17) joint pain,unable to breathe, unaable to walk JOINT PAIN,UNABLE TO BREATHE,UNABLE TO WALK pravastatin Adverse Reaction (Severe, Verified 06/11/18 09:17) Myalgias gemfibrozil Adverse Reaction (Intermediate, Verified 06/11/18 09:17) Unknown NSAIDS (Non-Steroidal Anti-Inflamma Adverse Reaction (Verified 06/11/18 09:17) Other Home Medications: Ambulatory Orders Medication Instructions Recorded Aspirin [Aspirin, Baby] 81 mg PO DAILY@0800 03/10/17 Levothyroxine Sodium [Levoxyl] 75 mcg PO QHS 03/10/17 Nitroglycerin [Nitrostat] 0.4 mg SUBLINGUAL Q5M PRN 03/10/17 Pantoprazole Sodium [Protonix] 40 mg PO DAILY 03/10/17 Pravastatin Sodium 40 mg PO DAILY 03/10/17 Ergocalciferol [Vitamin D] 50,000 unit PO Q7D cap 07/08/17 Insulin Detemir [Levemir FlexPen] 30 units SC BID 07/25/17 clopidogrel 75 mg tablet 75 mg PO DAILY #90 tab 11/25/17 phawfk-uwpsxhfc-bopkywi 1 cap PO QAC cap 01/30/18 24,000-76,000-120,000 unit capsule,delayed rel amlodipine 5 mg tablet 5 mg PO QHS tab 05/05/18 allopurinol 100 mg tablet 100 mg PO DAILY 05/08/18 carvedilol 12.5 mg tablet 12.5 mg PO BID #180 tab 05/08/18 hydroxyzine HCl 50 mg tablet 25 mg PO TID-QID PRN tab 05/08/18 insulin aspart U- 100 100 unit/mL 14 unit SC TIDAC ml 05/08/18 subcutaneous pen quetiapine 50 mg tablet 100 mg PO QHS tab 05/08/18 alendronate 40 mg tablet 40 mg PO DAILY 90 Days #90 tab 05/22/18 isosorbide mononitrate ER 30 mg 30 mg PO BID tab 05/22/18 tablet,extended release 24 hr Cephalexin [Keflex] 500 mg PO Q12 #14 cap 06/07/18 Morphine Sulfate 3 ml PO DAILY 06/07/18 Lisinopril [Zestril] 10 mg PO DAILY 06/11/18 Surgical History: Surgical History (Last Reviewed 05/08/18 @ 13:15 by Madison Alicea) Stented coronary artery (Chronic) Onset Date: 12/21/14 Z95.5 PTCA and YASIR to proximal and distal CX per Dr. Hatfield @ [facility]:(Promus Premier 4.0 X 12 mm L2 stent from distal left main into proximal LCX; Promus Premier RX 2.25 X 12 mm L1 stent in distal LCX) History of left heart catheterization (Chronic) Z98.890 CABG X 3 vessels [facility]:DANIEL to LAD, reverse SVG to dx and to 2nd OM per Dr. Borjas @ [facility] 09/09/2014; PTCA andDES to proximal and distal CX per Dr. Vance ray 12/21/2014; History of coronary artery bypass graft (Chronic) Z95.1 CABG X 3 vessels [facility]:DANIEL to LAD, reverse SVG to dx and to 2nd OM per Dr. Borjas @ [facility] 09/09/2014 Surgical History: appendectomy, coronary bypass surgery, gastric bypass, tonsillectomy, - - Cardiac stent, , Carpal tunnel release, 3rd toe amputation, carotid endarterectomy, right foot 5th ray amputation, right foot transmetatarsal amputation. 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: No pertinent DRIVABILITY TECHNICIAN history Smoking Status: Never smoker Tobacco Use: Non-smoker - *Family History Paternal Family History: Family History (Last Reviewed 05/08/18 @ 13:15 by Madison Alicea) Mother Cancer CVA (cerebral vascular accident) CAD (coronary artery disease) Father CAD (coronary artery disease) History of coronary artery bypass graft Sister CAD (coronary artery disease) Multiple sclerosis History Items: No pertinent history Maternal Family History: Family History (Last Reviewed 05/08/18 @ 13:15 by Madison Alicea) Mother Cancer CVA (cerebral vascular accident) CAD (coronary artery disease) Father CAD (coronary artery disease) History of coronary artery bypass graft Sister CAD (coronary artery disease) Multiple sclerosis History Items: No pertinent history Review of Systems Constitutional: Denies: Chills, Fever, Weight Change HEENT: Denies: Head Aches, Sinus Congestion, Sinus Drainage Cardiovascular: Denies: Chest Pain, Palpitations Respiratory: Denies: Cough, Shortness of breath at rest, Sputum production Gastrointestinal: Denies: Abdominal Pain, Nausea, Vomiting Genitourinary: Denies: Dysuria Musculoskeletal: Reports: Back Pain, Joint Pain. Denies: Joint Tenderness Skin: Denies: Rash, Wounds Neurological: Denies: Numbness, Tingling, Focal weakness Psychiatric: Reports: Anxiety. Denies: Depression, Homicidal Ideations, Suicidal Ideations Hematologic/ Lymphatic: Denies: Easy Bruising, Easy Bleeding Patient Problems: Active and Suspected Problems (Last Reviewed 05/08/18 @ 13:15 by Madison Alicea) Ulcer of left foot (Acute) - Physical Exam General: Alert, Oriented x3, Cooperative HEENT: Atraumatic, PERRLA, EOMI, Normocephalic Neck: Supple, No JVD, Negative Carotid Bruits Lungs: Clear to auscultation, Normal air movement, No rhonchi, No wheeze, No rales Cardiovascular: Regular rate, Regular Rhythm, Normal S1, Normal S2, Irregular Rate, Murmur Abdomen: Bowel Sounds Present, Soft, Non Tender, Non-Distended Extremities: No edema, Capillary Refill Less than 3 Seconds Skin: No rashes, No breakdown Musculoskeletal: No Tenderness to Palpation of Joints or Extremities, Arthritic Changes, Tenderness Neurological: Cranial nerves II-XII grossly intact, Deep Tendon Reflexes 2+/4 and Symmetrical, Neuro grossly intact, - - Numbness present in the left foot and left leg. Psych/Mental Status: Normal Affect, Appropriate Vital Signs Temp Pulse Resp BP Pulse Ox 98.2 F 78 18 104/44 L 100 06/17/18 17:46 06/17/18 17:46 06/17/18 17:46 06/17/18 17:46 06/17/18 17:46 Oxygen Delivery Method Room Air Weight: 177 lb 7.554 oz Body Mass Index (BMI) 30.4 Finger Stick Blood Glucose 193 Intake and Output for Last 24 Hours 06/15/18 06/16/18 06/17/18 23:59 23:59 23:59 Intake Total 1775 / 1775 Output Total 140 / 140 Balance 1635 / 1635 Laboratory Tests Past 24 Hrs 06/17/18 14:59 S.aureus Protein A PCR NEGATIVE MRSA (PCR) Negative POC Glucose 06/17/18 06/17/18 17:11 12:37 POC Glucose 134 H 163 H Assessment/Plan All Active Problems (Last Reviewed 05/08/18 @ 13:15 by Madison Alicea) Ulcer of left foot (Acute) Abscess of right foot (Acute) Ulcer at the right metatarsal head (Acute) osteomylitis right little toe (Resolved) Severe sepsis (Resolved) Acute kidney injury (Resolved) Dehydration (Resolved) Acute delirium (Resolved) Hyponatremia (Resolved) Foot ulcer (Resolved) Osteomyelitis of right foot (Acute) Sepsis (Resolved) Hypotension (Resolved) UTI (urinary tract infection) (Resolved) Gangrene of toe (Resolved) Cellulitis of toe, right (Resolved) Gangrene (Resolved) The patient is a 73 year old F with multiple comorbidities as listed above including type 2 diabetes mellitus who is admitted by rn recovery electively for surgery of Exostectomy left foot with bone biopsy for Charcot joint of midfoot dislocation and ulcer formation, rule out osteomyelitis. Patient left foot is normal after anesthesia. She denies any chest pain, shortness of breath, palpitation, abdominal pain. She denies new lower urinary tract symptoms except she has increased frequency secondary to diabetes mellitus and being on diuretics. She has Maloney catheter. She has multiple comorbidities including type 1 diabetes mellitus with diabetic polyneuropathy, Charcot joint, coronary artery disease status post triple vessel CABG, stents, last one as per patient 2 years ago, osteomyelitis of right foot, history of C. difficile colitis, acute kidney injury, carotid artery disease, and hypertension. [] 1. Charcot joint of the left foot status post Exostectomy left foot with bone biopsy: The patient is being admitted by rn recovery on regular [facility] floor. Pain control. 2. Coronary artery disease status post CABG and stents: Patient had dobutamine stress test in December 2017 and was negative for ischemia by EKG and echocardiographic criteria. Estimated EF 65%. 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 Since patient has irregular heartbeat, twelve-lead EKG ordered. Check BMP, magnesium. 3. Diabetes mellitus type 2: Patient is on Levemir 30 units twice daily and insulin aspart 14 units subcu 3 times daily pre-meal. Accu-Chek S and at bedtime cover with NovoLog sliding scale. A1c tomorrow a.m. 4. Hypertension: Blood pressure is controlled. 5. Other chronic history includes hypothyroidism, carotid artery disease, hypertension and osteomyelitis of right foot: Home medication reconciliation done. DVT prophylaxis: On Lovenox 40 minutes of daily. discontinue if platelet count drops less than 90,000 or hemoglobin less than 8 g% This note was generated with [employer] dictation software. Every effort was made to ensure accuracy, however computerized owner mistakes may persist. Active Medications Hydrocodone Bitart/Acetaminophen ([place] 5mg-325mg) 1 tablet PO Q6H PRN PRN PRN Reason: SEVERE PAIN (6-10/10) Last Admin: 06/17/18 19:10 Dose: 1 tablet Enoxaparin Sodium (Lovenox) 40 mg SC DAILY [facility] Cefazolin Sodium 2 gm/ Sodium (Chloride) 110 mls @ 150 mls/hr IV Q8 [facility] Stop: 06/18/18 19:00 Last Admin: 06/17/18 19:51 Dose: 150 mls/hr Nutritional Formula (Blue - [place] Flavor) 1 packet PO BIDCM [facility] Last Admin: 06/17/18 19:08 Dose: 1 packet Ondansetron HCl (Zofran) 4 mg IV Q8H PRN PRN PRN Reason: NAUSEA/VOMITING Sodium Chloride () 5 - 15 ml IV UD PRN PRN Reason: SALINE FLUSH Laboratory Results 06/17/18 12:37: POC Glucose 163 H 06/17/18 14:59: S.aureus Protein A PCR NEGATIVE, MRSA (PCR) Negative 06/17/18 17:11: POC Glucose 134 H Clinical Impression(s) from Imaging Studies Chest X-Ray 06/13/18 15:20 IMPRESSION: No acute abnormality is seen. Code Visit Inpatient E&M: [id number] Init Hosp L3
[2018-06-17] MEDS: Cefazolin 2 GM in 0.9% Normal Saline 100 ML IV (19:51)
--- NOTE | 2018-06-17 20:05 | EKG12_ITS ---
Test Reason : MORNING EKG Blood Pressure : / mmHG Vent. Rate : 077 BPM Atrial Rate : 077 BPM P-R Int : 196 ms QRS Dur : 084 ms QT Int : 388 ms P-R-T Axes : 055 -25 104 degrees QTc Int : 439 ms Normal sinus rhythm with sinus arrhythmia T wave abnormality, consider lateral ischemia Abnormal ECG Confirmed by ALEJANDRO ANAYA, RODRIGUE ([id number]), scientific editor KRISTEN RUBI ([id number] on 06/20/2018 2:43:39 PM Referred By: Ivanna Magana Confirmed By:RODRIGUE ALLEN MD
[2018-06-17] MEDS: 0.9% Normal Saline 1,000 ML 75 ML IV (20:51)
[2018-06-17] MEDS: Insulin Lispro 100 UNIT/ML INSULN.PEN SQ (20:53)
[2018-06-17 20:55] LABS: Bedside Glucose 256 mg/dL (70-110)
[2018-06-17] MEDS: amLODIPine 5 MG Tablet PO (21:19)
[2018-06-17] MEDS: QUEtiapine 100 MG Tablet PO (21:19)
[2018-06-17] MEDS: Isosorbide Mononitrate 30 MG Tablet PO (21:19)
[2018-06-17] MEDS: Carvedilol 12.5 MG Tablet PO (21:19)
[2018-06-17] MEDS: Levothyroxine 75 MCG Tablet PO (21:19)
[2018-06-17 21:51] LABS: Absolute Lymphocyte Count 1.88 X10^3/ul (0.83-4.51); Absolute Neutrophil Count 5.1 X10^3/uL (2.0-7.7); Basophil# 0.05 X10^3/uL; Basophil% 0.6 % (0-1); Eosinophil# 0.15 X10^3/uL; Eosinophils% 1.9 % (0-5); Hematocrit 37.4 % (37-47); Hemoglobin 11.7 g/dl (12.0-15.0); Lymphocyte # 1.88 X10^3/ul (4.0); Lymphocyte % 23.9 % (19-41); Mean Corp Hgb Conc 31.3 g/gl (32-36); Mean Corpuscular Hgb 26.1 pg (27.0-32.0); Mean Corpuscular Volume 83.5 fL (81-99); Mean Platelet Vol. 9.8 fl (6.2-12.0); Monocyte# 0.71 X10^3/uL; Neutrophil # 5.06 X10^3/uL (2.7-7.7); Neutrophil % 64.3 % (47-70); Platelet Count 171 K/mm3 (150-450); RBC Distribution Width CV 16.6 % (11.6-14.6); RBC Distribution Width SD 50.6 fl (35.1-43.9); Red Blood Count 4.48 M/mm3 (4.2-5.4); White Blood Count 7.9 K/mm3 (4.4-11.0)
[2018-06-17 21:52] LABS: POSITIVE COUNT NO; POSITIVE DIFFERENTIAL NO; POSITIVE MORPHOLOGY NO
[2018-06-17 22:14] LABS: Anion Gap 7 (5-15); BUN 27 mg/dL (7-18); BUN/Creat Ratio 17.9 RATIO (10-20); Calcium,Total 8.2 mg/dL (8.5-10.1); Chloride 110 mmol/L (98-107); Creatinine, Serum 1.51 mg/dL (0.55-1.02); EST Glomerular Filtration Rate 36 mL/min (>60); Est Glom Filt Rate - Afr Amer 44 mL/min (>60); Estimated Creatinine Clearance 29.51 ml/min; Glucose 243 mg/dL (74-106); Magnesium 2.3 mg/dL (1.6-2.6); Sodium Level 140 mmol/L (136-145)
[2018-06-18] MEDS: morphine (oral solution) 10MG/0.5ML Syringe 6 MG PO ×2 (00:44→10:32)
[2018-06-18] MEDS: HYDROcodone Bitartrate/Apap 5/325 Tablet PO ×3 (02:13→14:53)
[2018-06-18 02:26] VITALS: BP 133/96; PULSE 88; RESP 17; TEMP 37.4; O2SAT 94
[2018-06-18 03:46] VITALS: PULSE 77
[2018-06-18] MEDS: Cefazolin 2 GM in 0.9% Normal Saline 100 ML IV ×2 (05:00→14:50)
[2018-06-18 05:37] LABS: Absolute Lymphocyte Count 1.81 X10^3/ul (0.83-4.51); Absolute Neutrophil Count 3.4 X10^3/uL (2.0-7.7); Basophil# 0.02 X10^3/uL; Basophil% 0.3 % (0-1); Eosinophil# 0.09 X10^3/uL; Eosinophils% 1.5 % (0-5); Hematocrit 29.5 % (37-47); Hemoglobin 9.3 g/dl (12.0-15.0); Lymphocyte # 1.81 X10^3/ul (4.0); Lymphocyte % 29.9 % (19-41); Mean Corp Hgb Conc 31.5 g/gl (32-36); Mean Corpuscular Hgb 26.3 pg (27.0-32.0); Mean Corpuscular Volume 83.6 fL (81-99); Monocyte# 0.73 X10^3/uL; Neutrophil % 56.1 % (47-70); Platelet Count 166 K/mm3 (150-450); RBC Distribution Width CV 16.2 % (11.6-14.6); RBC Distribution Width SD 48.3 fl (35.1-43.9); Red Blood Count 3.53 M/mm3 (4.2-5.4); White Blood Count 6.1 K/mm3 (4.4-11.0)
[2018-06-18 05:41] LABS: POSITIVE COUNT NO; POSITIVE DIFFERENTIAL NO; POSITIVE MORPHOLOGY NO
[2018-06-18 06:03] LABS: Anion Gap 8 (5-15); BUN 23 mg/dL (7-18); BUN/Creat Ratio 24.3 RATIO (10-20); Calcium,Total 6.4 mg/dL (8.5-10.1); Chloride 120 mmol/L (98-107); Creatinine, Serum 0.95 mg/dL (0.55-1.02); EST Glomerular Filtration Rate 62 mL/min (>60); Est Glom Filt Rate - Afr Amer 75 mL/min (>60); Glucose 151 mg/dL (74-106); Potassium 3.8 mmol/L (3.5-5.1); Sodium Level 147 mmol/L (136-145)
[2018-06-18] MEDS: Insulin Lispro 100 UNIT/ML INSULN.PEN SQ ×2 (06:43→12:34)
[2018-06-18 06:50] LABS: Bedside Glucose 185 mg/dL (70-110)
[2018-06-18 07:04] LABS: Hemoglobin A1c 8.1 % (4.2-6.3)
[2018-06-18 08:00] VITALS: PULSE 78
[2018-06-18] MEDS: Clopidogrel Bisulfate 75 MG Tablet PO (08:41)
[2018-06-18] MEDS: Aspirin 81 MG TAB.CHEW PO (08:41)
[2018-06-18] MEDS: Allopurinol 100 MG Tablet PO (08:41)
[2018-06-18] MEDS: Carvedilol 12.5 MG Tablet PO (08:41)
[2018-06-18] MEDS: Insulin Lispro 100 UNIT/ML INSULN.PEN 14 UNIT SC ×2 (08:41→12:34)
[2018-06-18] MEDS: Isosorbide Mononitrate 30 MG Tablet PO (08:42)
[2018-06-18] MEDS: Enoxaparin 40 MG/0.4 ML Syringe SC (08:42)
[2018-06-18] MEDS: Pantoprazole Sodium 40 MG Tablet PO (08:42)
[2018-06-18] MEDS: Lisinopril 10 MG Tablet PO (08:42)
[2018-06-18 08:50] VITALS: BP 151/55; PULSE 85; RESP 18; TEMP 37.2; O2SAT 99
--- NOTE | 2018-06-18 10:45 | CASEMGMT ---
RN CM Face to Face with patient for initial transition planning/care coordination assessment. RN CM introduced self and role at [facility]. Patient lying in bed, alert and oriented. Patient willing to participate in assessment and is able to answer all questions appropriately. Care providers, pharmacy, and demographics verified. Patient wishes to discharge home, denies need for home health at this time. Patient has shower chair, raised toilet, cane, walker, grab bars, wheelchair, BiPap, knee walker and scooter at home. Patient's will be providing transportation Patient states she has no further needs or concerns at this time. CM to follow for discharge planning needs that may arise. Disposition Plan: Patient to discharge home with family support and follow-up plans in place. Shabnam KOROMA, RN, CM
--- NOTE | 2018-06-18 11:58 | CHAPLAIN ---
Type of Pastoral Visit _x__ Initial Visit ___ Follow-up Visit ___ On-call Visit ___ General Patient Visit ___ Spiritual Assessment ___ Family Conference ___ Bereavement ___ Rapid Response ___ Code Blue ___ Other (describe below) Pastoral Care Referral From _x__ Patient ___ Family ___ Nurse ___ Physician ___ Chinchilla Farmer ___ Underwriting Clerk ___ Other (describe below) Sacrament/Intervention _x__ Active listening ___ Anointing ___ Buddhist ___ Bereavement ___ Communion ___ Sharron exploration ___ ___ Life review _x__ Prayer ___ Reconciliation ___ Sacrament of Sick _x__ Supportive presence ___ Wedding ___ Other (describe below) Pastoral Comments
--- NOTE | 2018-06-18 11:59 | PCM.PN.HOSP ---
Patient Problems: Active and Suspected Problems (Last Reviewed 05/08/18 @ 13:15 by Madison Alicea) Ulcer of left foot (Acute) Subjective: She is doing well today denies any significant pain at the surgical site. No fevers or chills. No chest pain or shortness of breath. Vitals/I&O's: Vital Signs Temp Pulse Resp BP Pulse Ox 99.0 F 85 18 151/55 H 99 06/18/18 08:50 06/18/18 08:50 06/18/18 08:50 06/18/18 08:50 06/18/18 08:50 Oxygen Delivery Method Room Air Weight: 177 lb 7.554 oz Body Mass Index (BMI) 30.4 Finger Stick Blood Glucose 193 Intake and Output for Last 24 Hours 06/16/18 06/17/18 06/18/18 23:59 23:59 23:59 Intake Total 1775 / 1775 1600 / 1600 Output Total 140 / 140 1750 / 1750 Balance 1635 / 1635 -150 / -150 General: Alert, Oriented x3, Cooperative, No apparent distress HEENT: Atraumatic, PERRLA, EOMI, Normocephalic Oral: Moist Mucosa Neck: Supple, No JVD, Trachea Midline Lungs: Clear to auscultation, Normal air movement, No rhonchi, No wheeze, Diminished Cardiovascular: Regular rate, Regular Rhythm, Normal S1, Normal S2, No murmurs, No rub noted, No Gallop Abdomen: Soft, Non Tender, Non-Distended, No Hepato-splenomegaly Extremities: No edema, Capillary Refill Less than 3 Seconds Skin: Incision - Dressing on the left foot intact Neurological: Neuro grossly intact, Sensory exam intact to light touch and pain Psych/Mental Status: Normal Affect, Appropriate Laboratory Results 06/17/18 12:37: POC Glucose 163 H 06/17/18 14:59: S.aureus Protein A PCR NEGATIVE, MRSA (PCR) Negative 06/17/18 17:11: POC Glucose 134 H 06/17/18 20:49: POC Glucose 256 H 06/17/18 21:40: WBC 7.9, RBC 4.48, Hgb 11.7 L, Hct 37.4, MCV 83.5, MCH 26.1 L, MCHC 31.3 L, RDW 16.6 H, RDW Differential 50.6 H, Plt Count 171, MPV 9.8, Immature Gran % (Auto) 0.300, Neut % (Auto) 64.3, Lymph % (Auto) 23.9, [place] % (Auto) 9.0, Eos % (Auto) 1.9, Baso % (Auto) 0.6, Absolute Neuts (auto) 5.1, Absolute Lymphs (auto) 1.88, Total Counted Not Reportable 06/17/18 21:40: Sodium 140, Potassium 5.0, Chloride 110 H, Carbon Dioxide 23.0, Anion Gap 7, BUN 27 H, Creatinine 1.51 H, Estim Creat Clear Calc 29.51, Est GFR (MDRD) Af Amer 44 L, Est GFR (MDRD) Non-Af 36 L, BUN/Creatinine Ratio 17.9, Glucose 243 H, Calcium 8.2 L, Magnesium 2.3 06/18/18 05:04: WBC 6.1, RBC 3.53 L, Hgb 9.3 L, Hct 29.5 L, MCV 83.6, MCH 26.3 L, MCHC 31.5 L, RDW 16.2 H, RDW Differential 48.3 H, Plt Count 166, MPV 10.0, Immature Gran % (Auto) 0.200, Neut % (Auto) 56.1, Lymph % (Auto) 29.9, [place] % (Auto) 12.0 H, Eos % (Auto) 1.5, Baso % (Auto) 0.3, Absolute Neuts (auto) 3.4, Absolute Lymphs (auto) 1.81, Total Counted Not Reportable 06/18/18 05:04: Sodium 147 H, Potassium 3.8, Chloride 120 H, Carbon Dioxide 19.0 L, Anion Gap 8, BUN 23 H, Creatinine 0.95, Estim Creat Clear Calc 46.90, Est GFR (MDRD) Af Amer 75, Est GFR (MDRD) Non-Af 62, BUN/Creatinine Ratio 24.3 H, Glucose 151 H, Calcium 6.4 L* 06/18/18 05:04: Hemoglobin A1c 8.1 H 06/18/18 06:39: POC Glucose 185 H Current Medications Hydrocodone Bitart/Acetaminophen ([place] 5mg-325mg) 1 tablet PO Q6H PRN PRN PRN Reason: SEVERE PAIN (6-10/10) Last Admin: 06/18/18 08:50 Dose: 1 tablet Allopurinol (Zyloprim) 100 mg PO DAILY [facility] Last Admin: 06/18/18 08:41 Dose: 100 mg Amlodipine Besylate (Norvasc) 5 mg PO QHS [facility] Last Admin: 06/17/18 21:19 Dose: 5 mg Aspirin (Aspirin, Baby) 81 mg PO DAILY@0800 [facility] Last Admin: 06/18/18 08:41 Dose: 81 mg Carvedilol (Coreg) 12.5 mg PO BID [facility] Last Admin: 06/18/18 08:41 Dose: 12.5 mg Clopidogrel Bisulfate (Plavix) 75 mg PO DAILY [facility] Last Admin: 06/18/18 08:41 Dose: 75 mg Dextrose (D50w Syringe) 0 gm IV X1 PRN; Protocol PRN Reason: Hypoglycemia Enoxaparin Sodium (Lovenox) 40 mg SC DAILY [facility] Last Admin: 06/18/18 08:42 Dose: 40 mg Ergocalciferol (Vitamin D) 50,000 unit PO Q7D [facility] Glucagon () 1 mg IM .X1 PRN PRN Reason: Hypoglycemia Hydroxyzine Pamoate (Vistaril Pamoate Capsule) 25 mg PO 4X/DAY PRN PRN Reason: ANXIETY Cefazolin Sodium 2 gm/ Sodium (Chloride) 110 mls @ 150 mls/hr IV Q8 [facility] Stop: 06/18/18 19:00 Last Admin: 06/18/18 05:00 Dose: 150 mls/hr Insulin Glargine (Lantus (Bkc)) 30 units SC BID [facility] Last Admin: 06/18/18 08:41 Dose: 30 u Insulin Human Lispro (Humalog Kwikpen (Bkc)) 14 unit SC 0800,1200,1700 [facility] Last Admin: 06/18/18 08:41 Dose: 14 units Insulin Human Lispro (Humalog Kwikpen (Bkc)) 0 unit SQ ACHS [facility]; Protocol Last Admin: 06/18/18 06:43 Dose: 1 u Isosorbide Mononitrate (Imdur) 30 mg PO BID [facility] Last Admin: 06/18/18 08:42 Dose: 30 mg Levothyroxine Sodium (Synthroid) 75 mcg PO QHS [facility] Last Admin: 06/17/18 21:19 Dose: 75 mcg Lisinopril (Zestril) 10 mg PO DAILY [facility] Last Admin: 06/18/18 08:42 Dose: 10 mg Morphine Sulfate (Roxanol (Ir Oral Solution)) 6 mg PO BID [facility] Last Admin: 06/18/18 10:32 Dose: 6 mg Morphine Sulfate (Roxanol (Ir Oral Solution)) 5 mg PO Q6H PRN PRN Nitroglycerin (Nitrostat) 0.4 mg SUBLINGUAL Q5M PRN PRN Reason: Chest Pain Nutritional Formula (Blue - [place] Flavor) 1 packet PO BIDCM [facility] Last Admin: 06/18/18 08:43 Dose: 1 packet Nutritional Formula (Lactose Free) (Glucerna Shake) 120 ml PO TIDCM [facility] Last Admin: 06/18/18 08:53 Dose: Not Given Ondansetron HCl (Zofran) 4 mg IV Q8H PRN PRN PRN Reason: NAUSEA/VOMITING Pancrelipase (Creon Dr 12,000 Unit Capsule) 2 capsule PO BREAKFAST [facility] Pantoprazole Sodium (Protonix) 40 mg PO DAILY [facility] Last Admin: 06/18/18 08:42 Dose: 40 mg Pravastatin Sodium (Pravachol) 40 mg PO QHS [facility] Quetiapine Fumarate (Seroquel) 100 mg PO QHS [facility] Last Admin: 06/17/18 21:19 Dose: 100 mg Sodium Chloride () 5 - 15 ml IV UD PRN PRN Reason: SALINE FLUSH Medical Necessity - Tobacco Use Smoking Status: Never smoker Tobacco Use: Non-smoker Assessment/Plan All Active Problems (Last Reviewed 05/08/18 @ 13:15 by Madison Alicea) Ulcer of left foot (Acute) Abscess of right foot (Acute) Ulcer at the right metatarsal head (Acute) osteomylitis right little toe (Resolved) Severe sepsis (Resolved) Acute kidney injury (Resolved) Dehydration (Resolved) Acute delirium (Resolved) Hyponatremia (Resolved) Foot ulcer (Resolved) Osteomyelitis of right foot (Acute) Sepsis (Resolved) Hypotension (Resolved) UTI (urinary tract infection) (Resolved) Gangrene of toe (Resolved) Cellulitis of toe, right (Resolved) Gangrene (Resolved) 1. Charcot foot status post exostectomy with biopsy of the left foot postop day 1 -Wound care per primary as well as pain management -From a medical standpoint her comorbidities are currently managed and well controlled -She is cleared for for discharge from a medical perspective -Per podiatry she pleaded her Keflex course and her cellulitis had resolved and she will not need any antibiotics on discharge -Podiatry will follow up her cultures as an outpatient 2. Coronary artery disease status post CABG x3 and stents/HTN/HLD -She had dobutamine stress test in December which was normal -Currently her cardiac health is stabilized and no changes were made to her medications 3. DM 2 -Stable we will continue with her home insulin regimen 4. Hypocalcemia -She is not experiencing any symptoms and her cardiac rhythm is stable -Yesterday her her calcium was normal and today is 6.4 so I am concerned that there was a lab error -I will hold her alendronate on discharge and there is an ionized calcium pending that can be followed up as an outpatient -She will need to see her primary care doctor for repeated labs by the end of this week or early next week 5. GERD -stable -Continue with PPI DVT: Lovenox Code Visit OBSV E&M: 35532 Subsequent observation care L2
[2018-06-18 12:00] VITALS: PULSE 73
--- NOTE | 2018-06-18 12:09 | PN_ITS ---
Patient Problems: Active and Suspected Problems (Last Reviewed 05/08/18 @ 13:15 by Madison Alicea) Ulcer of left foot (Acute) Subjective: She is doing well today denies any significant pain at the surgical site. No fevers or chills. No chest pain or shortness of breath. Vitals/I&O's: Vital Signs Temp Pulse Resp BP Pulse Ox 99.0 F 85 18 151/55 H 99 06/18/18 08:50 06/18/18 08:50 06/18/18 08:50 06/18/18 08:50 06/18/18 08:50 Oxygen Delivery Method Room Air Weight: 177 lb 7.554 oz Body Mass Index (BMI) 30.4 Finger Stick Blood Glucose 193 Intake and Output for Last 24 Hours 06/16/18 06/17/18 06/18/18 23:59 23:59 23:59 Intake Total 1775 / 1775 1600 / 1600 Output Total 140 / 140 1750 / 1750 Balance 1635 / 1635 -150 / -150 General: Alert, Oriented x3, Cooperative, No apparent distress HEENT: Atraumatic, PERRLA, EOMI, Normocephalic Oral: Moist Mucosa Neck: Supple, No JVD, Trachea Midline Lungs: Clear to auscultation, Normal air movement, No rhonchi, No wheeze, Diminished Cardiovascular: Regular rate, Regular Rhythm, Normal S1, Normal S2, No murmurs, No rub noted, No Gallop Abdomen: Soft, Non Tender, Non-Distended, No Hepato-splenomegaly Extremities: No edema, Capillary Refill Less than 3 Seconds Skin: Incision - Dressing on the left foot intact Neurological: Neuro grossly intact, Sensory exam intact to light touch and pain Psych/Mental Status: Normal Affect, Appropriate Laboratory Results 06/17/18 12:37: POC Glucose 163 H 06/17/18 14:59: S.aureus Protein A PCR NEGATIVE, MRSA (PCR) Negative 06/17/18 17:11: POC Glucose 134 H 06/17/18 20:49: POC Glucose 256 H 06/17/18 21:40: WBC 7.9, RBC 4.48, Hgb 11.7 L, Hct 37.4, MCV 83.5, MCH 26.1 L, MCHC 31.3 L, RDW 16.6 H, RDW Differential 50.6 H, Plt Count 171, MPV 9.8, Immature Gran % (Auto) 0.300, Neut % (Auto) 64.3, Lymph % (Auto) 23.9, [place] % (Auto) 9.0, Eos % (Auto) 1.9, Baso % (Auto) 0.6, Absolute Neuts (auto) 5.1, Absolute Lymphs (auto) 1.88, Total Counted Not Reportable 06/17/18 21:40: Sodium 140, Potassium 5.0, Chloride 110 H, Carbon Dioxide 23.0, Anion Gap 7, BUN 27 H, Creatinine 1.51 H, Estim Creat Clear Calc 29.51, Est GFR (MDRD) Af Amer 44 L, Est GFR (MDRD) Non-Af 36 L, BUN/Creatinine Ratio 17.9, Glucose 243 H, Calcium 8.2 L, Magnesium 2.3 06/18/18 05:04: WBC 6.1, RBC 3.53 L, Hgb 9.3 L, Hct 29.5 L, MCV 83.6, MCH 26.3 L , MCHC 31.5 L, RDW 16.2 H, RDW Differential 48.3 H, Plt Count 166, MPV 10.0, Immature Gran % (Auto) 0.200, Neut % (Auto) 56.1, Lymph % (Auto) 29.9, [place] % (Auto) 12.0 H, Eos % (Auto) 1.5, Baso % (Auto) 0.3, Absolute Neuts (auto) 3.4, Absolute Lymphs (auto) 1.81, Total Counted Not Reportable 06/18/18 05:04: Sodium 147 H, Potassium 3.8, Chloride 120 H, Carbon Dioxide 19.0 L, Anion Gap 8, BUN 23 H, Creatinine 0.95, Estim Creat Clear Calc 46.90, Est GFR (MDRD) Af Amer 75, Est GFR (MDRD) Non-Af 62, BUN/Creatinine Ratio 24.3 H, Glucose 151 H, Calcium 6.4 L* 06/18/18 05:04: Hemoglobin A1c 8.1 H 06/18/18 06:39: POC Glucose 185 H Current Medications Hydrocodone Bitart/Acetaminophen ([place] 5mg-325mg) 1 tablet PO Q6H PRN PRN PRN Reason: SEVERE PAIN (6-10/10) Last Admin: 06/18/18 08:50 Dose: 1 tablet Allopurinol (Zyloprim) 100 mg PO DAILY [facility] Last Admin: 06/18/18 08:41 Dose: 100 mg Amlodipine Besylate (Norvasc) 5 mg PO QHS [facility] Last Admin: 06/17/18 21:19 Dose: 5 mg Aspirin (Aspirin, Baby) 81 mg PO DAILY@0800 [facility] Last Admin: 06/18/18 08:41 Dose: 81 mg Carvedilol (Coreg) 12.5 mg PO BID [facility] Last Admin: 06/18/18 08:41 Dose: 12.5 mg Clopidogrel Bisulfate (Plavix) 75 mg PO DAILY [facility] Last Admin: 06/18/18 08:41 Dose: 75 mg Dextrose (D50w Syringe) 0 gm IV X1 PRN; Protocol PRN Reason: Hypoglycemia Enoxaparin Sodium (Lovenox) 40 mg SC DAILY [facility] Last Admin: 06/18/18 08:42 Dose: 40 mg Ergocalciferol (Vitamin D) 50,000 unit PO Q7D [facility] Glucagon () 1 mg IM .X1 PRN PRN Reason: Hypoglycemia Hydroxyzine Pamoate (Vistaril Pamoate Capsule) 25 mg PO 4X/DAY PRN PRN Reason: ANXIETY Cefazolin Sodium 2 gm/ Sodium (Chloride) 110 mls @ 150 mls/hr IV Q8 [facility] Stop: 06/18/18 19:00 Last Admin: 06/18/18 05:00 Dose: 150 mls/hr Insulin Glargine (Lantus (Bkc)) 30 units SC BID [facility] Last Admin: 06/18/18 08:41 Dose: 30 u Insulin Human Lispro (Humalog Kwikpen (Bkc)) 14 unit SC 0800,1200,1700 [facility] Last Admin: 06/18/18 08:41 Dose: 14 units Insulin Human Lispro (Humalog Kwikpen (Bkc)) 0 unit SQ ACHS [facility]; Protocol Last Admin: 06/18/18 06:43 Dose: 1 u Isosorbide Mononitrate (Imdur) 30 mg PO BID [facility] Last Admin: 06/18/18 08:42 Dose: 30 mg Levothyroxine Sodium (Synthroid) 75 mcg PO QHS [facility] Last Admin: 06/17/18 21:19 Dose: 75 mcg Lisinopril (Zestril) 10 mg PO DAILY [facility] Last Admin: 06/18/18 08:42 Dose: 10 mg Morphine Sulfate (Roxanol (Ir Oral Solution)) 6 mg PO BID [facility] Last Admin: 06/18/18 10:32 Dose: 6 mg Morphine Sulfate (Roxanol (Ir Oral Solution)) 5 mg PO Q6H PRN PRN Nitroglycerin (Nitrostat) 0.4 mg SUBLINGUAL Q5M PRN PRN Reason: Chest Pain Nutritional Formula (Blue - [place] Flavor) 1 packet PO BIDCM [facility] Last Admin: 06/18/18 08:43 Dose: 1 packet Nutritional Formula (Lactose Free) (Glucerna Shake) 120 ml PO TIDCM [facility] Last Admin: 06/18/18 08:53 Dose: Not Given Ondansetron HCl (Zofran) 4 mg IV Q8H PRN PRN PRN Reason: NAUSEA/VOMITING Pancrelipase (Creon Dr 12,000 Unit Capsule) 2 capsule PO BREAKFAST [facility] Pantoprazole Sodium (Protonix) 40 mg PO DAILY [facility] Last Admin: 06/18/18 08:42 Dose: 40 mg Pravastatin Sodium (Pravachol) 40 mg PO QHS [facility] Quetiapine Fumarate (Seroquel) 100 mg PO QHS [facility] Last Admin: 06/17/18 21:19 Dose: 100 mg Sodium Chloride () 5 - 15 ml IV UD PRN PRN Reason: SALINE FLUSH Medical Necessity - Tobacco Use Smoking Status: Never smoker Tobacco Use: Non-smoker Assessment/Plan All Active Problems (Last Reviewed 05/08/18 @ 13:15 by Madison Alicea) Ulcer of left foot (Acute) Abscess of right foot (Acute) Ulcer at the right metatarsal head (Acute) osteomylitis right little toe (Resolved) Severe sepsis (Resolved) Acute kidney injury (Resolved) Dehydration (Resolved) Acute delirium (Resolved) Hyponatremia (Resolved) Foot ulcer (Resolved) Osteomyelitis of right foot (Acute) Sepsis (Resolved) Hypotension (Resolved) UTI (urinary tract infection) (Resolved) Gangrene of toe (Resolved) Cellulitis of toe, right (Resolved) Gangrene (Resolved) 1. Charcot foot status post exostectomy with biopsy of the left foot postop day 1 -Wound care per primary as well as pain management -From a medical standpoint her comorbidities are currently managed and well cont rolled -She is cleared for for discharge from a medical perspective -Per podiatry she pleaded her Keflex course and her cellulitis had resolved and she will not need any antibiotics on discharge -Podiatry will follow up her cultures as an outpatient 2. Coronary artery disease status post CABG x3 and stents/HTN/HLD -She had dobutamine stress test in December which was normal -Currently her cardiac health is stabilized and no changes were made to her medications 3. DM 2 -Stable we will continue with her home insulin regimen 4. Hypocalcemia -She is not experiencing any symptoms and her cardiac rhythm is stable -Yesterday her her calcium was normal and today is 6.4 so I am concerned that there was a lab error -I will hold her alendronate on discharge and there is an ionized calcium pending that can be followed up as an outpatient -She will need to see her primary care doctor for repeated labs by the end of this week or early next week 5. GERD -stable -Continue with PPI DVT: Lovenox Code Visit OBSV E&M: 80065 Subsequent observation care L2
--- NOTE | 2018-06-18 12:29 | PN_ITS ---
Patient Problems: Active and Suspected Problems (Last Reviewed 05/08/18 @ 13:15 by Madison Alicea) Ulcer of left foot (Acute) Subjective: This 73-year-old female with multiple comorbidities was seen bedside postoperative day #1 left foot planing and exostectomy of prominent medial mid foot secondary to Charcot deformity with additional bone biopsy. She denies fever, chill, nausea, vomiting, shortness of breath, chest pain, calf pain. Her pain is intermittent and mild; this is been well controlled. She did well with physical therapy this morning is ready to go home if appropriate. - Physical Exam General: Alert, Oriented x3, Cooperative Extremities: Capillary Refill Less than 3 Seconds - Left foot Skin: - - Left lower extremity splint and dressing is clean dry and intact without strikethrough or adjacent erythema or streaking Musculoskeletal: No Tenderness to Palpation of Joints or Extremities, Muscle Wasting, - - Rectus left ankle and foot. Negative Claudio and Elizondo sign bilateral Neurological: - - Lack of epicritic sensation light touch bilateral lower extremities is consistent with her previously diagnosed neuropathy Psych/Mental Status: Normal Affect, Appropriate Vital Signs Temp Pulse Resp BP Pulse Ox 99.0 F 73 18 151/55 H 99 06/18/18 08:50 06/18/18 12:00 06/18/18 08:50 06/18/18 08:50 06/18/18 08:50 Oxygen Delivery Method Room Air Weight: 80.5 kg Body Mass Index (BMI) 30.4 Finger Stick Blood Glucose 193 Intake and Output for Last 24 Hours 06/16/18 06/17/18 06/18/18 23:59 23:59 23:59 Intake Total 1775 / 1775 1600 / 1600 Output Total 140 / 140 1750 / 1750 Balance 1635 / 1635 -150 / -150 Microbiology Past 72 Hours 06/17/18 14:59 Gram Stain - Final Bone - Ankle Wound Culture - Preliminary No growth-Final to follow Laboratory Tests Past 24 Hrs 06/17/18 06/17/18 06/17/18 14:59 21:40 21:40 WBC 7.9 RBC 4.48 Hgb 11.7 L Hct 37.4 MCV 83.5 MCH 26.1 L MCHC 31.3 L RDW 16.6 H RDW Differential 50.6 H Plt Count 171 MPV 9.8 Immature Gran % (Auto) 0.300 Neut % (Auto) 64.3 Lymph % (Auto) 23.9 Hand % (Auto) 9.0 Eos % (Auto) 1.9 Baso % (Auto) 0.6 Absolute Neuts (auto) 5.1 Absolute Lymphs (auto) 1.88 Total Counted Not Reportable Sodium 140 Potassium 5.0 Chloride 110 H Carbon Dioxide 23.0 Anion Gap 7 BUN 27 H Creatinine 1.51 H Estim Creat Clear Calc 29.51 Est GFR (MDRD) Af Amer 44 L Est GFR (MDRD) Non-Af 36 L BUN/Creatinine Ratio 17.9 Glucose 243 H Hemoglobin A1c Calcium 8.2 L Magnesium 2.3 S.aureus Protein A PCR NEGATIVE MRSA (PCR) Negative 06/18/18 06/18/18 06/18/18 05:04 05:04 05:04 WBC 6.1 RBC 3.53 L Hgb 9.3 L Hct 29.5 L MCV 83.6 MCH 26.3 L MCHC 31.5 L RDW 16.2 H RDW Differential 48.3 H Plt Count 166 MPV 10.0 Immature Gran % (Auto) 0.200 Neut % (Auto) 56.1 Lymph % (Auto) 29.9 Hand % (Auto) 12.0 H Eos % (Auto) 1.5 Baso % (Auto) 0.3 Absolute Neuts (auto) 3.4 Absolute Lymphs (auto) 1.81 Total Counted Not Reportable Sodium 147 H Potassium 3.8 Chloride 120 H Carbon Dioxide 19.0 L Anion Gap 8 BUN 23 H Creatinine 0.95 Estim Creat Clear Calc 46.90 Est GFR (MDRD) Af Amer 75 Est GFR (MDRD) Non-Af 62 BUN/Creatinine Ratio 24.3 H Glucose 151 H Hemoglobin A1c 8.1 H Calcium 6.4 L* Magnesium S.aureus Protein A PCR MRSA (PCR) POC Glucose 06/18/18 06/17/18 06/17/18 06:39 20:49 17:11 POC Glucose 185 H 256 H 134 H 06/17/18 12:37 POC Glucose 163 H Medical Necessity - Tobacco Use Smoking Status: Never smoker Tobacco Use: Non-smoker Assessment/Plan All Active Problems (Last Reviewed 05/08/18 @ 13:15 by Madison Alicea) Ulcer of left foot (Acute) Abscess of right foot (Acute) Ulcer at the right metatarsal head (Acute) osteomylitis right little toe (Resolved) Severe sepsis (Resolved) Acute kidney injury (Resolved) Dehydration (Resolved) Acute delirium (Resolved) Hyponatremia (Resolved) Foot ulcer (Resolved) Osteomyelitis of right foot (Acute) Sepsis (Resolved) Hypotension (Resolved) UTI (urinary tract infection) (Resolved) Gangrene of toe (Resolved) Cellulitis of toe, right (Resolved) Gangrene (Resolved) s/p day 1 left foot charcot exostecomy resection with bone biopsy s/p splint application left lower extremity rule out osteomyelitis left foot diabetes mellitus with neuropathy malnutrition medical comorbidities: coronary artery disease, h/o stroke, hypertension, chronic pain, hyperlipidemia, hypertension, hypothyroidism, iron deficiency anemia, GERD, h/o c-diff, h/o delayed ulcers with infections/amputations, She is s/p left foot surgery. Her morning labs are reviewed without leukocytosis. Her vital signs remained stable. To keep splint clean, dry, intact. Strict non weightbearing left foot. She is high risk for limb loss and understands this may be a staged procedure pending bone biopsy results and ongoing stability of this limb. Post operative IV antibiotics were provided; cefazolin. There was no alejandro purulence or necrosis noted in surgery. It is noted she completed a course of oral antibiotics in the outpatient setting. The resected bone cultures and pathology specimens are pending from surgery. I do not recommend additional antibiotics at this time until these results come back. Is okay to resume Plavix at this time. She did well with physical therapy this morning with remaining nonweightbearing and is cleared to return home. She has many assistive devices at home and will need a chair lift; prescription provided. She has a walker with a knee sling and also a knee roller at home. Pain medication ordered; to take as needed ([place] 5/325 mg). To elevate limb. Her vitals remain stable and she was afebrile overnight. Hospitalist physician did order a 12-lead EKG and there were no acute abnormalities on this. She is medically complicated however stable at this time. She will be discharged home this afternoon and orders have been placed. Medical management per primary team is appreciated. Her hypocalcemia is noted and etiology is unknown. It may be related to her bisphosphonates. She is on oral alendronate at home and also had an IV infusion a couple of weeks ago for treatment of osteopenia and charcot, respectively. This medication will be held and she will follow up with her primary care physician in the outpatient setting. She will need an updated basic metabolic profile or ionized calcium to follow-up on this in the outpatient setting. This was discussed with hospitalist today. Please call if questions. Ivanna Magana DPM, [facility] [phone]
--- NOTE | 2018-06-18 12:31 | DCINST_ITS ---
Discharge Diet: Carb Control Diet Discharge Activity: May Not Drive, Use Walker Weight Bearing Status: No weight bearing - left Keep extremity elevated above heart level: Left Leg Call your doctor if your incision/area has: Continuous Slow Oozing, Increased Pain/ Swelling, Increased Redness, Foul Smelling Discharge, Swelling at the incision site Call your doctor if you observe: Fever of 101 or Higher, Calf discomfort, Uncontrolled pain Cleanse incision/area with: Keep Dressing Clean & Dry - Do not remove splint or dressing Allergies/Adverse Reactions: Allergies atorvastatin calcium [From Lipitor] Allergy (Verified 06/11/18:) Unknown bupropion HCl [From Wellbutrin] Allergy (Verified 06/11/18:) Unknown mannitol [From Reclast] Allergy (Verified 06/11/18:) joint pain, unable to breathe, unable to walk propoxyphene napsylate [From Darvocet-N 100] Allergy (Verified 06/11/18:) Unknown Quinolones Allergy (Verified 06/11/18:) Unknown Tetanus Vaccines and Toxoid [Tetanus Vaccines & Toxoid] Allergy (Verified 06/11/18:) Chest tightness tizanidine Allergy (Verified 06/11/18:) Unknown zoledronic acid [From Reclast] Allergy (Verified 06/11/18:) joint pain,unable to breathe, unaable to walk JOINT PAIN,UNABLE TO BREATHE,UNABLE TO WALK pravastatin Adverse Reaction (Severe, Verified 06/11/18:) Myalgias gemfibrozil Adverse Reaction (Intermediate, Verified 06/11/18:) Unknown NSAIDS (Non-Steroidal Anti-Inflamma Adverse Reaction (Verified 06/11/18:) Other Medications to take at Discharge Aspirin [Aspirin, Baby] 81 mg PO DAILY@0800 03/10/17 Levothyroxine Sodium [Levoxyl] 75 mcg PO QHS 03/10/17 Nitroglycerin [Nitrostat] 0.4 mg SUBLINGUAL Q5M PRN 03/10/17 Pantoprazole Sodium [Protonix] 40 mg PO DAILY 03/10/17 Pravastatin Sodium 40 mg PO DAILY 03/10/17 Ergocalciferol [Vitamin D] 50,000 unit PO Q7D cap 07/08/17 Insulin Detemir [Levemir FlexPen] 30 units SC BID 07/25/17 clopidogrel 75 mg tablet 75 mg PO DAILY #90 tab 11/25/17 amlodipine 5 mg tablet 5 mg PO QHS tab 05/05/18 allopurinol 100 mg tablet 100 mg PO DAILY 05/08/18 carvedilol 12.5 mg tablet 12.5 mg PO BID #180 tab 05/08/18 hydroxyzine HCl 50 mg tablet 25 mg PO TID-QID PRN tab 05/08/18 insulin aspart U- 100 100 unit/mL subcutaneous pen 14 unit SC TIDAC ml 05/08/18 quetiapine 50 mg tablet 100 mg PO QHS tab 05/08/18 alendronate 40 mg tablet 40 mg PO DAILY 90 Days #90 tab 05/22/18 isosorbide mononitrate ER 30 mg tablet,extended release 24 hr 30 mg PO BID tab 05/22/18 Cephalexin [Keflex] 500 mg PO Q12 #14 cap 06/07/18 Morphine Sulfate 3 ml PO DAILY 06/07/18 Lisinopril [Zestril] 10 mg PO DAILY 06/11/18 Lipase/Protease/Amylase [Creon Dr 24,000 Units Capsule] 1 tablet PO BREAKFAST 06/18/18 Primary Care Physician: Con Johnson MD [Primary Care Provider] - Test Results: Test results from this visit will be discussed in further detail at your follow- up appointment, if applicable. Please Follow Up With: Ivanna Magana DPM When: next Saturday June 23, 2018 at [facility] [phone] Proposed Discharge Date: 06/18/18
[2018-06-18 12:40] LABS: Bedside Glucose 227 mg/dL (70-110)
--- NOTE | 2018-06-18 13:27 | DS.PCM_ITS ---
Discharge Date and Diagnosis - Problem List Patient Problems: Active and Suspected Problems (Last Reviewed 05/08/18 @ 13:15 by Madison Alicea) Ulcer of left foot (Acute) Date of Admission: 06/17/18 Date of Discharge: 06/18/18 - Primary Discharge Diagnosis Active and Suspected Problems (Last Reviewed 05/08/18 @ 13:15 by Madison Alicea) Ulcer of left foot (Acute) Ulcer left foot secondary to Charcot deformity Rule out osteomyelitis Diabetes with neuropathy Other comorbidities include hypertension, hyperlipidemia, anemia, GERD, coronary artery disease with history of bypass, hypocalcemia - Secondary Discharge Diagnosis Chronic Problems (Last Reviewed 05/08/18 @ 13:15 by Madison Alicea) Charcot's joint of left foot (Chronic) Type 2 diabetes mellitus with diabetic polyneuropathy (Chronic) History of CVA (cerebrovascular accident) (Chronic) Peripheral arterial occlusive disease (Chronic) Stroke (Chronic) Stented coronary artery (Chronic 12/21/14) PTCA and YASIR to proximal and distal CX per Dr. Hatfield @ [facility]:(Promus Premier 4.0 X 12 mm L2 stent from distal left main into proximal LCX; Promus Premier RX 2.25 X 12 mm L1 stent in distal LCX) History of left heart catheterization (Chronic) CABG X 3 vessels [facility]:DANIEL to LAD, reverse SVG to dx and to 2nd OM per Dr. Borjas @ [facility] 09/09/2014; PTCA andDES to proximal and distal CX per Dr. Hatfield 12/21/2014; History of coronary artery bypass graft (Chronic) CABG X 3 vessels [facility]:DANIEL to LAD, reverse SVG to dx and to 2nd OM per Dr. Borjas @ [facility] 09/09/2014 Atherosclerotic heart disease of [place] coronary artery without angina pectoris (Chronic) CABG X 3 vessels [facility]: DANIEL to LAD, reverse SVG to dx and to 2nd OM per Dr. Borjas @ [facility] 09/09/2014; PTCA/YASIR to Left main, LAD, and OM1 per Dr. Hatfield 12/21/2014; C. 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) Carotid artery disease (Chronic) Xerosis of skin (Chronic) Malnutrition (Chronic) Ulcer of right foot with fat layer exposed (Chronic) Diabetes mellitus with polyneuropathy (Chronic) Peripheral vascular disease (Chronic) Hypertension (Chronic) Obesity (Chronic) Diabetes mellitus type II (Chronic) Chronic pain (Chronic) Fatty liver (Chronic) Hyperlipidemia (Chronic) Coronary artery disease (Chronic) Hypothyroidism (Chronic) Iron deficiency anemia (Chronic) GERD (gastroesophageal reflux disease) (Chronic) Vitamin D deficiency (Chronic) Insomnia (Chronic) Hospital Course and Treatment Imaging Results: Postoperative left foot xrays demonstrate exostectomy and planing of the medial first cuneiform that was subluxed and medially and dorsally prominent secondary to Charcot deformity. There are no acute injuries noted a foreign body or soft tissue emphysema. consulting / managing teams : Medical hospitalist, podiatric surgery, physical therapy Operations: - - Left foot planing and exostectomy of the midfoot with bone biopsy Summary of Care Provided: History of present illness: This 73-year-old female underwent surgical resection of prominent medial first cuneiform of the left foot secondary to Charcot deformity and subluxation. Prior to her admission she was treated in the outpatient setting for concurrent cellulitis and subluxation of the midfoot. She completed a course of oral antibiotics. She also completed IV biphosphonate's to speed up the acute Charcot process and she responded well to this. Her deformity still progressed and she developed a wound and progressive deterioration. She has a long history of uncontrolled diabetes with multiple medical comorbidities and was stabilized prior to her surgical intervention. Hospital course: Mrs. Seay underwent surgical intervention. She was admitted for observation afterward for medical management, pain control, and physical therapy gait training. Microbiology cultures and pathology specimens were sent and surgery and these are pending. She had IV antibiotics postoperative. Postoperatively, hospitalist identified a potential irregular heartbeat and ordered an EKG which did not suggest acute findings. Physical therapy did work with her postoperatively and confirm she is able to maintain a nonweightbearing status. Appropriate assistive devices in the home were confirmed and she was also given a prescription for a lift chair to optimize her compliance with her nonweightbearing status. Hypocalcemia was also identified and her oral biphosphonate's were held at this time. She is overall stable and she will follow-up in the outpatient setting. Discharge was planned once her medical and surgical stabilization was confirmed. Patient Problems: Active and Suspected Problems (Last Reviewed 12/13/18 @ 13:15 by Madison Alicea) Ulcer of left foot (Acute) - Physical Exam General: Alert, Oriented x3, Cooperative HEENT: Atraumatic Lungs: Clear to auscultation Cardiovascular: Regular rate, Regular Rhythm Extremities: No cyanosis, Capillary Refill Less than 3 Seconds, No Calf Tenderness, - Skin: Incision - Intact left foot. Skin is hairless and atrophic Musculoskeletal: Muscle Wasting, - - Left pes planus now with less prominent medial dorsal midfoot eminence. Compartments remain soft left lower extremity Neurological: - - Lack of epicritic sensation left foot Psych/Mental Status: Normal Affect, Appropriate Vital Signs Temp Pulse Resp BP Pulse Ox 99.0 F 73 18 151/55 H 99 06/18/18 08:50 06/18/18 12:00 06/18/18 08:50 06/18/18 08:50 06/18/18 08:50 Oxygen Delivery Method Room Air Weight: 80.5 kg Body Mass Index (BMI) 30.4 Finger Stick Blood Glucose 193 Intake and Output for Last 24 Hours 06/16/18 06/17/18 06/18/18 23:59 23:59 23:59 Intake Total 1775 / 1775 2591 / 2591 Output Total 140 / 140 2900 / 2900 Balance 1635 / 1635 -309 / -309 Microbiology Past 72 Hours 06/17/18 14:59 Gram Stain - Final Bone - Ankle Wound Culture - Preliminary No growth-Final to follow Laboratory Tests Past 24 Hrs 06/17/18 06/17/18 06/17/18 14:59 21:40 21:40 WBC 7.9 RBC 4.48 Hgb 11.7 L Hct 37.4 MCV 83.5 MCH 26.1 L MCHC 31.3 L RDW 16.6 H RDW Differential 50.6 H Plt Count 171 MPV 9.8 Immature Gran % (Auto) 0.300 Neut % (Auto) 64.3 Lymph % (Auto) 23.9 [place] % (Auto) 9.0 Eos % (Auto) 1.9 Baso % (Auto) 0.6 Absolute Neuts (auto) 5.1 Absolute Lymphs (auto) 1.88 Total Counted Not Reportable Sodium 140 Potassium 5.0 Chloride 110 H Carbon Dioxide 23.0 Anion Gap 7 BUN 27 H Creatinine 1.51 H Estim Creat Clear Calc 29.51 Est GFR (MDRD) Af Amer 44 L Est GFR (MDRD) Non-Af 36 L BUN/Creatinine Ratio 17.9 Glucose 243 H Hemoglobin A1c Calcium 8.2 L Ionized Calcium Magnesium 2.3 S.aureus Protein A PCR NEGATIVE MRSA (PCR) Negative 06/18/18 06/18/18 06/18/18 05:04 05:04 05:04 WBC 6.1 RBC 3.53 L Hgb 9.3 L Hct 29.5 L MCV 83.6 MCH 26.3 L MCHC 31.5 L RDW 16.2 H RDW Differential 48.3 H Plt Count 166 MPV 10.0 Immature Gran % (Auto) 0.200 Neut % (Auto) 56.1 Lymph % (Auto) 29.9 [place] % (Auto) 12.0 H Eos % (Auto) 1.5 Baso % (Auto) 0.3 Absolute Neuts (auto) 3.4 Absolute Lymphs (auto) 1.81 Total Counted Not Reportable Sodium 147 H Potassium 3.8 Chloride 120 H Carbon Dioxide 19.0 L Anion Gap 8 BUN 23 H Creatinine 0.95 Estim Creat Clear Calc 46.90 Est GFR (MDRD) Af Amer 75 Est GFR (MDRD) Non-Af 62 BUN/Creatinine Ratio 24.3 H Glucose 151 H Hemoglobin A1c 8.1 H Calcium 6.4 L* Ionized Calcium Magnesium S.aureus Protein A PCR MRSA (PCR) 06/18/18 13:10 WBC RBC Hgb Hct MCV MCH MCHC RDW RDW Differential Plt Count MPV Immature Gran % (Auto) Neut % (Auto) Lymph % (Auto) [place] % (Auto) Eos % (Auto) Baso % (Auto) Absolute Neuts (auto) Absolute Lymphs (auto) Total Counted Sodium Potassium Chloride Carbon Dioxide Anion Gap BUN Creatinine Estim Creat Clear Calc Est GFR (MDRD) Af Amer Est GFR (MDRD) Non-Af BUN/Creatinine Ratio Glucose Hemoglobin A1c Calcium Ionized Calcium Pending Magnesium S.aureus Protein A PCR MRSA (PCR) POC Glucose 06/18/18 06/18/18 06/17/18 12:33 06:39 20:49 POC Glucose 227 H 185 H 256 H 06/17/18 17:11 POC Glucose 134 H Discharge Diet: Carb Control Diet Discharge Activity: May Not Drive, Use Walker Weight Bearing Status: No weight bearing - left Keep extremity elevated above heart level: Left Leg Call your doctor if your incision/area has: Continuous Slow Oozing, Increased Pain/ Swelling, Increased Redness, Foul Smelling Discharge, Swelling at the incision site Call your doctor if you observe: Fever of 101 or Higher, Calf discomfort, Uncontrolled pain Cleanse incision/area with: Keep Dressing Clean & Dry - Do not remove splint or dressing Home Medications: Medications to take at Discharge Aspirin [Aspirin, Baby] 81 mg PO DAILY@0800 03/10/17 Levothyroxine Sodium [Levoxyl] 75 mcg PO QHS 03/10/17 Nitroglycerin [Nitrostat] 0.4 mg SUBLINGUAL Q5M PRN 03/10/17 Pantoprazole Sodium [Protonix] 40 mg PO DAILY 03/10/17 Pravastatin Sodium 40 mg PO DAILY 03/10/17 Ergocalciferol [Vitamin D] 50,000 unit PO Q7D cap 07/08/17 Insulin Detemir [Levemir FlexPen] 30 units SC BID 07/25/17 clopidogrel 75 mg tablet 75 mg PO DAILY #90 tab 11/25/17 amlodipine 5 mg tablet 5 mg PO QHS tab 05/05/18 allopurinol 100 mg tablet 100 mg PO DAILY 05/08/18 carvedilol 12.5 mg tablet 12.5 mg PO BID #180 tab 05/08/18 hydroxyzine HCl 50 mg tablet 25 mg PO TID-QID PRN tab 05/08/18 insulin aspart U- 100 100 unit/mL subcutaneous pen 14 unit SC TIDAC ml 05/08/18 quetiapine 50 mg tablet 100 mg PO QHS tab 05/08/18 isosorbide mononitrate ER 30 mg tablet,extended release 24 hr 30 mg PO BID tab 05/22/18 Morphine Sulfate 3 ml PO DAILY 06/07/18 Lisinopril [Zestril] 10 mg PO DAILY 06/11/18 Hydrocodone/Acetaminophen [Hydrocodon-Acetaminophen 5-325] 1 - 2 tab PO Q6H PRN PRN #5 tab 06/18/18 Lipase/Protease/Amylase [Andressa Means 24,000 Units Capsule] 1 tablet PO BREAKFAST 06/18/18 Following Prescrptions Were Given to Patient: Hydrocodone/Acetaminophen [Hydrocodon-Acetaminophen 5-325] 1 - 2 tab PO Q6H PRN PRN #5 tab PRN Reason: Pain Primary Care Physician: Con Johnson MD [Primary Care Provider] - Please Follow Up With: Ivanna Magana DPM When: next Saturday June 23, 2018 at [facility] [phone] Additional Instructions: follow up with PCP about hypocalcemia Disposition: Home Minutes spent on discharge:: 25 Patient Condition:: Good Medical Necessity - Tobacco Use Smoking Status: Never smoker Tobacco Use: Non-smoker Meaningful Use Info Meaningful Use Diagnoses (Choose all that apply): None applicable
--- NOTE | 2018-06-18 14:09 | CASEMGMT ---
Social Work Note Per academic services coordinator questions, pt has completed HCPOA and LW. SW checked pt's chart, HCPOA on file no LW. SW met with pt. SW introduced self and role at [facility]. Pt is alert and orientated. SW informed pt HCPOA are on file at [facility] but not LW. Pt states she would like to complete LW. SW completed Living Will with pt. Original provided to pt and copy placed on pt's chart. Shabnam Merino ACCOUNT RESOLUTION ANALYST, PROJECTOR BOOTH OPERATOR
[2018-06-18 14:50] VITALS: BP 143/60; PULSE 78; RESP 18; TEMP 37.2; O2SAT 97
[2018-06-18] MEDS: 0.9% NaCl Peripheral Flush Adult/Peds IV (14:50)
[2018-06-18] MEDS: Ondansetron 4 MG/2 ML Vial IV (15:15)
--- OUTSIDE RECORDS SUMMARY | 2018-08-19 15:22 | XMS RPT_ITS ---
:1945 Author Organization [place] Support Name Relationship Address Phone ARNHOLT, MADISON Unavailable [address] + [place] [address] R Unavailable Unavailable Unavailable RICHARD SEAYALD Unavailable [address] + [place] [address] ARNHOLT, MADISON Unavailable [address] + [place] [address] R Unavailable Unavailable Unavailable RY SEAY Unavailable [address] + [place] [address] ARNHOLT, MADISON Unavailable [address] + [place] [address] R Unavailable Unavailable Unavailable RY SEAY Unavailable [address] + [place] [address] ARNHOLT, MADISON Unavailable [address] + [place] [address] R Unavailable Unavailable Unavailable RICHARD SEAYALD Unavailable [address] + [place] [address] ARNHOLT, MADISON Unavailable [address] + [place] [address] R Unavailable Unavailable Unavailable RY SEAY Unavailable [address] + [place] [address] ARNHOLT, MADISON Unavailable Unavailable + R Unavailable Unavailable Unavailable RY SEAY Unavailable [address] + [place] [address] ARNHOLT, MADISON Unavailable . + ., . . R Unavailable Unavailable Unavailable RY SEAY Unavailable [address] + [place] [address] ARNHOLT, MADISON Unavailable Unavailable + R Unavailable Unavailable Unavailable ERIC RY Unavailable [address] + [place] [address] ARNHOLT, MADISON Unavailable . + [place] [address] R Unavailable Unavailable Unavailable ERIC RY Unavailable [address] + [place] [address] ARNHOLT, MADISON Unavailable Unavailable + [place] [address] R Unavailable Unavailable Unavailable ERIC, RY Unavailable [facility] [address] + [place] [address] ARNHOLT, MADISON Unavailable Unavailable + [place] [address] R Unavailable Unavailable Unavailable ERIC, RY Unavailable [address] + [place] [address] ARNHOLT, MADISON Unavailable Unavailable + [place] [address] R Unavailable Unavailable Unavailable ERIC, RY Unavailable [address] + [place] [address] ARNHOLT, MADISON Unavailable . + ., . . R Unavailable Unavailable Unavailable ERIC, RY Unavailable [address] + [place] [address] ARNHOLT, MADISON Unavailable Unavailable + [place] [address] R Unavailable Unavailable Unavailable ERIC, RY Unavailable [address] [place] [address] DR + [place] [address] ARNHOLT, MADISON Unavailable Unavailable + [place] [address] R Unavailable Unavailable Unavailable ERIC, RY Unavailable [address] [place] [address] DR + [place] [address] ARNHOLT, MADISON Unavailable Unavailable + [place] [address] R Unavailable Unavailable Unavailable ERIC, RY Unavailable [address] [place] [address] DR + [place] [address] ARNHOLT, MADISON Unavailable . + [place] [address] R Unavailable Unavailable Unavailable ERIC, RY Unavailable [address] + [place] [address] ARNHOLT, MADISON Unavailable . + [place] [address] R Unavailable Unavailable Unavailable ERIC RY Unavailable [address] + [place] [address] ARNHOLT, MADISON Unavailable . + [place] [address] R Unavailable Unavailable Unavailable ERIC RY Unavailable [address] [phone] [place] [address] ARNHOLT, MADISON Unavailable . + [place] [address] R Unavailable Unavailable Unavailable ERIC, RY Unavailable [address] [phone] [place] [address] ARNHOLT, MADISON Unavailable . + [place] [address] R Unavailable Unavailable Unavailable ERICRY VILLARREAL Unavailable [address] [phone] [place] [address] ARNHOLT, MADISON Unavailable . + [place] [address] R Unavailable Unavailable Unavailable ERIC, RY Unavailable . + [place] [address] ARNHOLT, MADISON Unavailable . + [place] [address] R Unavailable Unavailable Unavailable ERIC, RY Unavailable [address] [phone] [place] [address] ARNHOLT, MADISON Unavailable Unavailable + R Unavailable Unavailable Unavailable ERIC, RY Unavailable Unavailable + ARNHOLT, [place] Unavailable NA + [place], [place] R Unavailable Unavailable Unavailable ERIC, RY Unavailable NA + [place], [place] Care Team Providers Name Role Phone Ivanna Magana Attending Unavailable Con Johnson Primary Care Unavailable Claus Hatfield Attending Unavailable Con Johnson Referring Unavailable Ivanna Magana Attending Unavailable Ivanna Magana Referring Unavailable Alex Con Primary Care Unavailable Maribell Chau Attending Unavailable Con Johnson Referring Unavailable Fascione, Ivanna Attending Unavailable Johnson, Con Primary Care Unavailable Johnson, Con Primary Care Unavailable Clemente Eduardo Attending Unavailable Fascione, Ivanna Referring Unavailable Johnson, Con Primary Care Unavailable Ashelfah, Ghasem Consulting Unavailable Fascione, Ivanna Admitting Unavailable KotsoniChris phipps F Attending Unavailable Fascione, Ivanna Consulting Unavailable Fascione, Ivanna Admitting Unavailable Ovi Willson Attending Unavailable Fascione, Ivanna Referring Unavailable Johnson, Con Primary Care Unavailable Ashelfah, Ghasem Consulting Unavailable Fascione, Ivanna Consulting Unavailable Fascione, Ivanna Admitting Unavailable Kotsonis, Chris F Attending Unavailable Fascione, Ivanna Referring Unavailable Johnson, Con Primary Care Unavailable Ashelfah, Ghasem Consulting Unavailable Fascione, Ivanna Consulting Unavailable Kotsonis, Chris F Consulting Unavailable Johnson, Con Attending Unavailable Johnson, Con Referring Unavailable Johnson, Con Primary Care Unavailable Johnson, Con Attending Unavailable Johnson, Con Primary Care Unavailable Lars Wahl Attending Unavailable Johnson, Con Referring Unavailable Johnson, Con Primary Care Unavailable Johnson, Con Attending Unavailable Johnson, Con Primary Care Unavailable Johnson, Con Primary Care Unavailable Bautista Salas Attending Unavailable Johnson, Con Primary Care Unavailable Bautista Salas Attending Unavailable Johnson, Con Attending Unavailable Johnson, Con Primary Care Unavailable Lars Wahl Attending Unavailable Johnson, Con Primary Care Unavailable Johnson, Con Attending Unavailable Johnson, Con Primary Care Unavailable Claus Hatfield Attending Unavailable Johnson, Con Referring Unavailable Claus Hatfield Attending Unavailable Lars Wahl Referring Unavailable Johnson, Con Attending Unavailable Johnson, Con Referring Unavailable Johnson, Cno Primary Care Unavailable Johnson, Con Attending Unavailable Johnson, Con Primary Care Unavailable Johnson, Con Referring Unavailable Fascione, Ivanna Attending Unavailable Fascione, Ivanna Referring Unavailable Johnson, Con Primary Care Unavailable Ovi Willson Admitting Unavailable Johnson, Con Primary Care Unavailable Fascione, Ivanna Consulting Unavailable Con Hernandez Attending Unavailable Adam Webb Consulting Unavailable Victor Manuel, Adolfo Chi Admitting Unavailable Victor Manuel, Adolfo Chi Attending Unavailable Johnson, Con Primary Care Unavailable Fascione, Ivanna Consulting Unavailable PROBLEMS PROBLEMS DATE TYPE CONDITION / CODE ATTENDING STATUS SOURCE 06/18/2018 Unknown M14.672 - Charcot's Kotsonis, Active [place] joint, left ankle and Chris F Community foot / Hospital M14.672(ICD-10) Repository 06/10/2018 Unknown M79.672 - Pain in Clemente Eduardo Active [place] left foot / Community M79.672(ICD-10) Hospital Repository 06/06/2018 Unknown L97.522 - Fascione, Active [place] Non-pressure [facility] ulcer of other part Hospital of left foot with fat Repository layer exposed / L97.522(ICD-10) 05/08/2018 Unknown I63.9 - Cerebral 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, Community unspecified / Hospital I63.9(ICD-10) Repository 05/08/2018 Unknown Z86.73 - Personal Claus Hatfield Active [place] history of transient Community ischemic attack Hospital (TIA), and cerebral Repository infarction without residual deficits / Z86.73(ICD-10) 05/08/2018 Unknown I77.9 - Disorder of Claus Hatfield Active [place] arteries and Community arterioles, Hospital unspecified / Repository I77.9(ICD-10) 05/08/2018 Unknown Z95.5 - Presence of Claus Hatfield Active [place] coronary angioplasty Community implant and graft / Hospital Z95.5(ICD-10) Repository 05/08/2018 Unknown I25.10 - Claus Hatfield Active [place] Atherosclerotic heart Community disease of false pass Hospital coronary artery Repository without angina pectoris / I25.10(ICD-10) 05/08/2018 Unknown E78.5 - Claus Hatfield Active [place] Hyperlipidemia, Community unspecified / Hospital E78.5(ICD-10) Repository 05/02/2018 Unknown L03.116 - Cellulitis Fascione, Active [place] of left lower limb / [facility] Community L03.116(ICD-10) Hospital Repository 04/02/2018 Unknown M25.475 - Effusion, Con Johnson Active [place] left foot / Community M25.475(ICD-10) Hospital Repository 05/26/2018 Unknown G89.4 - Chronic pain Con Johnson Active [place] syndrome / Community G89.4(ICD-10) Hospital Repository 05/26/2018 Unknown M79.10 - Myalgia, Con Johnson Active [place] unspecified site / Community M79.10(ICD-10) Hospital Repository 05/26/2018 Unknown M79.603 - Pain in Con Johnson Active [place] arm, unspecified / Community M79.603(ICD-10) Hospital Repository 03/17/2018 Unknown Z95.1 - Presence of Claus Hatfield Active [place] aortocoronary bypass Community graft / Z95.1(ICD-10) Hospital Repository 03/17/2018 Unknown E78.2 - Mixed Claus Hatfield Active [place] hyperlipidemia / Community E78.2(ICD-10) Hospital Repository 02/11/2018 Unknown R07.9 - Chest pain, Claus Hatfield Active [place] unspecified / Community R07.9(ICD-10) Hospital Repository 12/20/2017 Unknown R19.7 - Diarrhea, Con Johnson Active [place] unspecified / Community R19.7(ICD-10) Hospital Repository 08/06/2017 Unknown M79.89 - Other Bautista Salas Active [place] specified soft tissue Community disorders / Hospital M79.89(ICD-10) Repository 07/29/2017 Unknown E11.39 - Type 2 Con Johnson Active [place] diabetes mellitus Community with other diabetic Hospital ophthalmic Repository complication / E11.39(ICD-10) 07/10/2017 Unknown Z47.81 - Encounter Victor Manuel, Adolfo Chi Active [place] for orthopedic Community aftercare following Hospital surgical amputation / Repository Z47.81(ICD-10) 07/10/2017 Unknown M86.9 - Victor Manuel, Adolfo Chi Active [place] Osteomyelitis, Community unspecified / Hospital M86.9(ICD-10) Repository 06/20/2017 Unknown L02.611 - Cutaneous JoppCon martines Active [place] abscess of right foot Community / L02.611(ICD-10) Hospital Repository PROCEDURES PROCEDURES No Procedure Records FoundRESULTS RESULTS COMPREHENSIVE METABOLIC Collected: 06/20/2018 Status: F Source: [place] [facility]IL [facility] TYPE CODE TESTS RESULT OUT OF RANGE REFERENCE UNITS LAB L501.0100 74-106 mg/dL High GLU 136 Result Comment: Fasting Glucose result greater than or equal to 126 mg/dL suggests DIABETES MELLITUS per A.D.A. criteria. Please note revised GLUCOSE reference range effective 2017. LAB L501.1000 7-18 mg/dL High BUN 29 LAB L501.1100 0.55-1.02 mg/dL High CREAT,SERUM 1.27 Result Comment: The validity of the calculated GFR AND GFRAA in patients over 70 years has not been determined. Clinical correlation is essential. LAB L501.1110 >60 mL/min Low EST GFR 44 Result Comment: Non- GFR Calc LAB L501.1115 >60 mL/min Low EST GFR - AA 53 Result Comment: GFR Calc LAB L501.1300 10-20 RATIO High BUN/CRE 22.8 LAB L501.1500 6.4-8.2 g/dL T Normal PROT 7.1 LAB L501.1800 3.2-5.0 g/dL Low ALB 3.1 LAB L501.1950 2.2-4.2 g/dL Normal GLOB 4.0 LAB L501.2000 0.9-2.4 RATIO Low A/G 0.8 LAB L501.2200 8.5-10.1 mg/dL CA Normal 9.0 LAB L501.4100 15-37 U/L Low AST 14 LAB L501.4305 45-117 U/L Normal ALK P 77 LAB L501.4405 13-56 U/L Normal ALT 14 LAB L501.4600 0.20-1.00 mg/dL T Normal BILI 0.20 LAB L501.5300 136-145 mmol/L NA Normal 140 LAB L501.5600 3.5-5.1 mmol/L K Normal 4.5 LAB L501.5900 98-107 mmol/L High CL 109 LAB L501.6100 21.0-32.0 mmol/L Normal CO2 21.0 LAB L501.6200 5-15 Normal GAP 10 Performed By: #### L500.4050 #### [facility] [address], [address] MAGNESIUM Collected: 06/20/2018 Status: F Source: [place] 4:01 PM [facility] REPOSITORY TYPE CODE TESTS RESULT OUT OF RANGE REFERENCE UNITS LAB L501.5200 1.6-2.6 mg/dL Normal MG 1.9 Performed By: #### L501.5200 #### [facility] [address] [place], [address] VITAMIN D,25 HYDROXY Collected: 06/20/2018 Status: F Source: [place] 4:01 PM [facility] REPOSITORY TYPE CODE TESTS RESULT OUT OF RANGE REFERENCE UNITS LAB L506.1000 29.95-100.01 ng/mL Normal Vitamin D 31.5 25-OH Result Comment: Vitamin D 25(OH) Status Range Deficiency <20 ng/mL (50nmol/L) Insuffciency 20 - 30 ng/mL (50 - 75 nmol/L) Sufficiency 30 - 100 ng/mL (75 - 250 nmol/L) Toxicity >100 ng/mL (>250 nmol/L) Performed By: #### L506.1000 #### [facility] [address] [place], [address] PTHIN Collected: 06/20/2018 Status: F Source: [place] 4:01 PM [facility] REPOSITORY TYPE CODE TESTS RESULT OUT OF RANGE REFERENCE UNITS LAB L509.1000 18.4-80.1 pg/mL Normal PTHIN 57.8 Performed By: #### L509.1000 #### [facility] [address] [place], [address] DISCHARGE SUMMARY Observed: 06/18/2018 Status: F Source: [place] 3:43 PM [facility] REPOSITORY [facility] Medical Records Department [address] [facility] [place] [address] Discharge Summary 06/18/18 1327 MR#: [id number] Acct: [id number] Name: LISA SEAY Rep #: [id number] : 1945 73 From: Ivanna Magana DPM PCP: Con Johnson MD Status: ADM YOKO Y Location: [place] [address] Discharge Date and Diagnosis - Problem List [...] and distal CX per Dr. Hatfield @ [facility]:(Promus Premier 4.0 X 12 mm L2 stent from distal left main into proximal LCX; Promus Premier RX 2.25 X 12 mm L1 stent in distal LCX) History of left heart catheterization (Chronic) CABG X 3 vessels [facility]:DANIEL to LAD, reverse SVG to dx and to 2nd OM per Dr. Borjas @ [facility] 09/09/2014; PTCA andDES to proximal and distal CX per Dr. Hatfield 12/21/2014; History of coronary artery bypass graft (Chronic) CABG X 3 vessels [facility]:DANIEL to LAD, reverse SVG to dx and to 2nd OM per Dr. 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 Borjas @ [facility] 09/09/2014; PTCA/YASIR to Left main, LAD, and [...] June 23, 2018 at [facility] [phone] Additional Instructions: follow up with PCP about hypocalcemia Disposition: Home Minutes spent on discharge:: 25 Patient Condition:: Good Medical Necessity - Tobacco Use Smoking Status: Never smoker Tobacco Use: Non-smoker Meaningful Use Info Meaningful Use Diagnoses (Choose all that apply): None applicable 06/18/18 1543 <Electronically signed by Ivanna Magana DPM> Date Ivanna Magana DPM Cosigner Signature (if applicable): Date CC: Con Johnson MD; Ivanna Magana DPM Signed HISTORY AND PHYSICAL Observed: 06/18/2018 Status: F Source: [place] EXAM 1:44 PM [facility] REPOSITORY [facility] Medical Records Department [address] [place] [address] History and Physical 06/17/18 1820 MR#: [id number] Acct: [id number] Name: LISA SEAY Rep #: [id number] : 1945 73 From: Ivanna Magana DPM PCP: Con Johnson MD Status: ADM YOKO Y Location: [facility]3 [id number] ADDENDUM by Ivanna Magana DPM on 06/18/18 [...] and distal CX per Dr. Hatfield @ [facility]:(Promus Premier 4.0 X 12 mm L2 stent from distal left main into proximal LCX; Promus Premier RX 2.25 X 12 mm L1 stent in distal LCX) History of left heart catheterization (Chronic) CABG X 3 vessels [facility]:DANIEL to LAD, reverse SVG to dx and to 2nd OM per Dr. Borjas @ [facility] 09/09/2014; PTCA andDES to proximal and distal CX per Dr. Hatfield 12/21/2014; History of coronary artery bypass graft (Chronic) CABG X 3 vessels [facility]:DANIEL to LAD, reverse SVG to dx and to 2nd OM per Dr. 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 Borjas @ [facility] 09/09/2014; PTCA/YASIR to Left main, LAD, and [...] and distal CX per Dr. Hatfield @ [facility]:(Promus Premier 4.0 X 12 mm L2 stent from distal left main into proximal LCX; Promus Premier RX 2.25 X 12 mm L1 stent in distal LCX) History of left heart catheterization (Chronic) Z98.890 CABG X 3 vessels [facility]:DANIEL to LAD, reverse SVG to dx and to 2nd OM per Dr. Borjas @ [facility] 09/09/2014; PTCA andDES to proximal and distal CX per Dr. Hatfield 12/21/2014; History of coronary artery bypass graft (Chronic) Z95.1 CABG X 3 vessels [facility]:DANIEL to LAD, reverse SVG to dx and to 2nd OM per Dr. 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 Please call if questions. Ivanna Magana DPM, [facility] [phone] 06/17/182049 <Electronically signed by Ivanna Magana DPM> Date Ivanna Magana DPM Cosigner Signature: Date (if applicable) CC: Con Johnson MD; Ivanna Magana DPM Signed CALCIUM IONIZED Collected: 06/18/2018 Status: F Source: [place] 1:10 PM [facility] REPOSITORY TYPE CODE TESTS RESULT OUT OF RANGE REFERENCE UNITS LAB L3100.9600 4.5-5.6 mg/dL Normal IONIZED CA 5.1 Result Comment: Performed at: [facility] [id number] Internet Retailer: Lux Roman PhD, Phone: [phone] Performed By: #### L3100.9600 #### [facility] (refer to report for specific site) refer to report for address and phone number BEDSIDE GLUCOSE Collected: 06/18/2018 Status: F Source: [place] 12:33 PM [facility] REPOSITORY TYPE CODE TESTS RESULT OUT OF REFERENCE UNITS RANGE LAB L501.080 70-110 mg/dL High BEDSIDE GLU 227 Result Comment: MANAGEMENT OF PATIENT CARE PER NURSING PROTOCOL Performed By: #### L501.080 #### [facility] Point of Care [address] [place] [address] DISCHARGE INSTRUCTION Observed: 06/18/2018 Status: F Source: [place] 12:31 PM [facility] REPOSITORY [facility] Medical Records Department [address] [place] [address] Instructions for Home/Discharge Instructions 06/18/18 1229 MR#: [id number] Acct: [id number] Name: LISA SEAY Rep #: [id number] : 1945 73 From: Ivanna Magana DPM [...] propoxyphene napsylate [From Darvocet-N 100] Allergy (Verified 06/11/18:17) Unknown Quinolones Allergy (Verified 06/11/18:) Unknown Tetanus Vaccines and Toxoid [Tetanus Vaccines [...] if applicable. Please Follow Up With: Ivanna Magaan DPM When: next Saturday June 23, 2018 at [facility] [phone] Proposed Discharge Date: 06/18/18 06/18/18 1231 <Electronically signed by Ivanna Magana DPM> Date Ivanna Magana DPM CC: Con Johnson MD; Jose M Moseley; Ivanna Magana DPM Signed BEDSIDE GLUCOSE Collected: 06/18/2018 Status: F Source: [place] 6:39 AM [facility] REPOSITORY TYPE CODE TESTS RESULT OUT OF REFERENCE UNITS RANGE LAB L501.080 70-110 mg/dL High BEDSIDE GLU 185 Result Comment: MANAGEMENT OF PATIENT CARE PER NURSING PROTOCOL Performed By: #### L501.080 #### [place] [facility] Point of Care [address] [address] CBC W/DIFF, AUTOMATED Collected: 06/18/2018 Status: F Source: [place] 5:04 AM [facility] REPOSITORY Order Comment: Has pt arrived? Y [...] Lymph 1.81 Performed By: #### L100.0100 #### [facility] [address] [place], [address] BASIC METABOLIC Collected: 06/18/2018 Status: F Source: [place] PROFILE (BMP) 5:04 AM [facility] REPOSITORY TYPE CODE TESTS RESULT OUT OF [...] Result(s) Called at: 06:04:29 06/18/2018 by: Adrian Tavarez RN ([facility]3). LAB L501.5300 136-145 mmol/L High NA 147 LAB L501.5600 3.5-5.1 mmol/L Normal K 3.8 LAB L501.5900 98-107 mmol/L High CL 120 LAB L501.6100 21.0-32.0 mmol/L Low CO2 19.0 LAB L501.6200 5-15 Normal 8 GAP Performed By: #### L500.2500 #### [facility] [address] [place], [place], [address] HEMOGLOBIN A1C Collected: 06/18/2018 Status: F Source: [place] 5:04 AM [facility] REPOSITORY TYPE CODE TESTS RESULT OUT OF RANGE REFERENCE UNITS LAB L501.9985 4.2-6.3 % High HGB A1C 8.1 Performed By: #### L501.9985 #### [facility] [address] [place], [place], [address] OPERATIVE REPORT Observed: 06/17/2018 Status: F Source: [place] 11:45 PM [facility] REPOSITORY [facility] Medical Records Department [address] [place] [address] Operative Report 06/17/18 1509 MR#: [id number] Acct: [id number] Name: LISA SEAY Rep #: [id number] : 1945 73 From: Ivanna Magana DPM PCP: Con Johnson MD Status: ADM YOKO Y Location: [facility]3 [id number] Problem List (1) Charcot's joint of left [...] extremity with 16 cc of 0.5% Marcaine hero MAC Specimen's removed: Left foot bone sent [...] and draped in the usual aseptic manner. [place] examination was performed to exsanguinate the left [...] soaked Adaptic, gauze, abdominal pad, Kerlix, and Arjun wrap were applied. Next a well-padded posterior [...] orders were entered electronically. Ivanna Magana DPM, [facility] 06/17/18 5285 <Electronically signed by Ivanna Magana DPM> Date Ivanna Magana DPM CC: Con Johnson MD; Jose M Moseley; Ivanna Magana DPM Signed CBC W/DIFF, AUTOMATED Collected: 06/17/2018 Status: F Source: [place] 9:40 PM [facility] REPOSITORY TYPE CODE TESTS RESULT OUT OF [...] Lymph 1.88 Performed By: #### L100.0100 #### [facility] [address] [place], [address] BASIC METABOLIC Collected: 06/17/2018 Status: F Source: [place] PROFILE (BMP) 9:40 PM [facility] REPOSITORY TYPE CODE TESTS RESULT OUT OF [...] 7 Performed By: #### L500.2500, L501.5200 #### [facility] [address] [place], [address] MAGNESIUM Collected: 06/17/2018 Status: F Source: [place] 9:40 PM [facility] REPOSITORY TYPE CODE TESTS RESULT OUT OF RANGE REFERENCE UNITS LAB L501.5200 1.6-2.6 mg/dL Normal MG 2.3 Performed By: #### L500.2500, L501.5200 #### [facility] [address], [address] BEDSIDE GLUCOSE Collected: 06/17/2018 Status: F Source: [place] 8:49 PM [facility] REPOSITORY TYPE CODE TESTS RESULT OUT OF REFERENCE UNITS RANGE LAB L501.080 70-110 mg/dL High BEDSIDE GLU 256 Result Comment: MANAGEMENT OF PATIENT CARE PER NURSING PROTOCOL Performed By: #### L501.080 #### [facility] Point of Care [address] [place] [address] CONSULTATION Observed: 06/17/2018 Status: F Source: [place] 8:07 PM [facility] REPOSITORY [facility] Medical Records Department [address] [place] [address] Consultation 06/17/181943 MR#: [id number] Acct: [id number] Name: LISA SEAY Rep #: [id number] : 1945 73 From: Ovi Willson MD PCP: Con Johnson MD Status: ADM YOKO Y Location: [place] [id number] Problem List (1) Charcot's joint of left [...] and distal CX per Dr. Hatfield @ [facility]:(Promus Premier 4.0 X 12 mm L2 stent from distal left main into proximal LCX; Promus Premier RX 2.25 X 12 mm L1 stent in distal LCX) (10) History of left heart catheterization Status: Chronic Comment: CABG X 3 vessels [facility]:DANIEL to LAD, reverse SVG to dx and to 2nd OM per Dr. Borjas @ [facility] 09/09/2014; PTCA andDES to proximal and distal CX per Dr. Hatfield 12/21/2014; (11) History of coronary artery bypass graft Status: Chronic Comment: CABG X 3 vessels [facility]:DANIEL to LAD, reverse SVG to dx and to 2nd OM per Dr. Borjas @ [facility] 09/09/2014 (12) Atherosclerotic heart disease of false pass coronary artery without angina pectoris Status: Chronic Qualifiers: Jamul vs. transplanted heart: false pass heart Qualified Code(s): I25.10 - Atherosclerotic heart disease of false pass coronary artery without angina pectoris Comment: CABG X 3 vessels [facility]: DANIEL to LAD, reverse SVG to dx and to 2nd OM per Dr. Borjas @ [facility] 09/09/2014; PTCA/YASIR to Left main, LAD, and [...] 2 diabetes mellitus who is admitted by engineer rf deployment electively for surgery of Exostectomy left foot with bone biopsy for Charcot joint of midfoot dislocation and ulcer formation, rule out osteomyelitis. Patient left foot is normal after anesthesia. She denies any chest pain, shortness of breath, palpitation, abdominal pain. She denies new lower urinary tract symptoms except she has increased frequency secondary to diabetes mellitus and being on diuretics. She has Maloney catheter. She has multiple comorbidities including type [...] and distal CX per Dr. Hatfield @ [facility]:(Promus Premier 4.0 X 12 mm L2 stent from distal left main into proximal LCX; Promus Premier RX 2.25 X 12 mm L1 stent in distal LCX) History of left heart catheterization (Chronic) CABG X 3 vessels [facility]:DANIEL to LAD, reverse SVG to dx and to 2nd OM per Dr. Borjas @ [facility] 09/09/2014; PTCA andDES to proximal and distal CX per Dr. Hatfield 12/21/2014; History of coronary artery bypass graft (Chronic) CABG X 3 vessels [facility]:DANIEL to LAD, reverse SVG to dx and to 2nd OM per Dr. 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 Borjas @ [facility] 09/09/2014; PTCA/YASIR to Left main, LAD, and [...] and distal CX per Dr. Hatfield @ [facility]:(Promus Premier 4.0 X 12 mm L2 stent from distal left main into proximal LCX; Promus Premier RX 2.25 X 12 mm L1 stent in distal LCX) History of left heart catheterization (Chronic) Z98.890 CABG X 3 vessels [facility]:DANIEL to LAD, reverse SVG to dx and to 2nd OM per Dr. Borjas @ [facility] 09/09/2014; PTCA andDES to proximal and distal CX per Dr. Hatfield 12/21/2014; History of coronary artery bypass graft (Chronic) Z95.1 CABG X 3 vessels [facility]:DANIEL to LAD, reverse SVG to dx and to 2nd OM per Dr. Borjas @ [facility] 09/09/2014 Surgical History: appendectomy, coronary bypass surgery, gastric bypass, tonsillectomy, - - Cardiac stent, , Carpal tunnel release, 3rd toe amputation, carotid endarterectomy, right foot 5th ray amputation, right foot transmetatarsal amputation. 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 Patient left foot is normal after anesthesia. She denies any chest pain, shortness of breath, palpitation, abdominal pain. She denies new lower urinary tract symptoms except she has increased frequency secondary to diabetes mellitus and being on diuretics. She has Maloney catheter. She has multiple comorbidities including type [...] biopsy: The patient is being admitted by engineer rf deployment on regular [facility] floor. Pain control. 2. Coronary artery disease status post CABG and stents: Patient had dobutamine stress test in December 2017 and was negative for ischemia by EKG and echocardiographic criteria. Estimated EF 65%. security monitor. Since patient has irregular heartbeat, twelve-lead [...] 8 g% This note was generated with [employer] dictation software. Every effort was made to ensure accuracy, however computerized underwriter mistakes may persist. Active Medications Hydrocodone Bitart/Acetaminophen (Viola 5mg-325mg) 1 tablet PO Q6H PRN PRN PRN Reason: SEVERE PAIN (6-10/10) Last Admin: 06/17/18 19:10 Dose: 1 tablet Enoxaparin Sodium (Lovenox) 40 mg SC DAILY [facility] Cefazolin Sodium 2 gm/ Sodium (Chloride) 110 mls @ 150 mls/hr IV Q8 SHAHBAZ Stop: 06/18/18 19:00 Last Admin: 06/17/18 19:51 Dose: 150 mls/hr Nutritional Formula (Blue - [place] Flavor) 1 packet PO BIDCM SHAHBAZ Last [...] seen. Code Visit Inpatient E AND M: 24737 Init Hosp L3 06/17/182006 <Electronically signed by Ovi Willson MD> Date Ovi Willson MD Cosigner Signature (if applicable): Date CC: Con Johnson MD; Jose M Moseley; Ivanna Magana DPM Signed BEDSIDE GLUCOSE Collected: 06/17/2018 Status: F Source: [place] 5:11 PM [facility] REPOSITORY TYPE CODE TESTS RESULT OUT OF REFERENCE UNITS RANGE LAB L501.080 70-110 mg/dL High BEDSIDE GLU 134 Result Comment: MANAGEMENT OF PATIENT CARE PER NURSING PROTOCOL Performed By: #### L501.080 #### [facility] Point of Care [address] [place], [place] [address] MRSA WOUND DNA BY Collected: 06/17/2018 Status: F Source: [place] PCR 2:59 PM [facility] REPOSITORY Order Comment: Comments: Left Foot Bone TYPE CODE TESTS RESULT OUT OF RANGE REFERENCE UNITS LAB L8200.1100 Negative Normal MRSA Negative RESULT LAB L8200.1150 Negative Normal SA RESULT NEGATIVE Performed By: #### L8200.1075, M100.1500 #### [facility] [address] [place], [place], [address] Observed: 06/17/2018 Status: P Source: [place] CULTURE, DEEP WOUND 2:59 PM [facility] REPOSITORY Order Date: 12/26/16 Comments: Left Foot Bone Gram Stain Gram Stain Rare Red Blood Cells No organisms seen Wound Culture No growth aerobically. Cult, Anaerobic No growth in 48 hours. Performed By: #### L8200.1075, M100.1500 #### [facility] [address] [place], [place], [address] BEDSIDE GLUCOSE Collected: 06/17/2018 Status: F Source: [place] 12:37 PM [facility] REPOSITORY TYPE CODE TESTS RESULT OUT OF REFERENCE UNITS RANGE LAB L501.080 70-110 mg/dL High BEDSIDE GLU 163 Result Comment: MANAGEMENT OF PATIENT CARE PER NURSING PROTOCOL Performed By: #### L501.080 #### [facility] Point of Care [address] [place] [address] FOOT 2 VIEWS Observed: 06/17/2018 Status: F Source: [place] 12:06 AM [facility] REPOSITORY [facility] Imaging Services [address] [place] [address] Foot 2 Views MR#: [id number] Acct: [id number] Name: LISA SEAY Rep #: [id number] : 1945 F 73 From: Delvin Morton MD PCP: Con Johnson MD Status: ADM YOKO Study: Foot 2 Views Date of Exam: 06/17/18 Exam# [id number] Ordering Dr: Ivanna Magana DPM STUDY: X-RAY - LEFT FOOT CLINICAL: Female, 73 years old. Left foot bone biopsy. TECHNIQUE: 2 view(s) of the foot. COMPARISON: None. FINDINGS: Intraoperative imaging provided for bone biopsy. RAD/Foot 2 Views IMPRESSION: Intraoperative imaging provided for bone biopsy. Electronically Signed: Delvin Morton MD at 8:20 EST Tel [phone], Service support , CC: Con Johnson MD; Ivanna Magana DPM Plant Controls Specialist: Signed 12 LEAD ELECTROCARDIOGRAM Observed: 06/16/2018 Status: F Source: [place] 9:40 AM [facility] REPOSITORY [facility] Cardiovascular Services [address] [place] [address] 12 Lead EKG 06/13/18 1540 MR#: [id number] Acct: [id number] Name: LISA SEAY Rep #: [id number] : 1945 72 From: Trenton Prescott MD Attending Dr: Ivanna Magana DPM Status: PRE [facility] [place] Ordering Dr: Ivanna Magana DPM Date: 06/13/18 Location: [facility] [place] Sex: F C [...] ECG Confirmed by TRENTON PRESCOTT MD ([id number]), tape editor TORO STRONG ([id number]) on 06/16/2018 9:40:31 AM Referred By: Ivanna Magana Confirmed By:TRENTON PRESCOTT MD 06/16/18 0940 Date Trenton Prescott MD CC: Con Johnson MD; Ivanna Magana DPM Signed CHEST PA AND LATERAL Observed: 06/13/2018 Status: F Source: [place] 3:17 PM [facility] REPOSITORY [facility] Imaging Services [address] [place] [address] Chest PA and Lateral MR#: [id number] Acct: [id number] Name: LISA SEAY Rep #: [id number] : 1945 F 72 From: Delvin Morton MD PCP: Con Johnson MD Status: PRE [facility] [place] Study: Chest PA and Lateral Date of Exam: 06/13/18 Exam# [id number] Ordering Dr: Ivanna Magana DPM STUDY: X-RAY [...] Delvin Morton MD at 15:40 EST Tel [phone], Service support , CC: Con Johnson MD; Ivanna Magana DPM Plant Controls Specialist: Signed CBC W/DIFF, AUTOMATED Collected: 06/13/2018 Status: F Source: [place] 3:04 PM [facility] REPOSITORY TYPE CODE TESTS RESULT OUT OF [...] 2.64 Performed By: #### L100.0100, L101.9900 #### [facility] [address] [place], [place], [address] ERYTHROCYTE SED RATE Collected: 06/13/2018 Status: F Source: [place] 3:04 PM [facility] REPOSITORY TYPE CODE TESTS RESULT OUT OF RANGE REFERENCE UNITS LAB L102.0000 0-30 mm/hr Normal SED RATE 25 Performed By: #### L100.0100, L101.9900 #### [facility] [address] [place], [place], [address] VITAMIN D,25 HYDROXY Collected: 06/13/2018 Status: F Source: [place] 3:04 PM [facility] REPOSITORY TYPE CODE TESTS RESULT OUT OF RANGE REFERENCE UNITS LAB L506.1000 29.95-100.01 ng/mL Normal Vitamin D 37.1 25-OH Result Comment: Vitamin D 25(OH) Status Range Deficiency <20 ng/mL (50nmol/L) Insuffciency 20 - 30 ng/mL (50 - 75 nmol/L) Sufficiency 30 - 100 ng/mL (75 - 250 nmol/L) Toxicity >100 ng/mL (>250 nmol/L) Performed By: #### L506.1000 #### [facility] [address] [place], [place], [address] COMPREHENSIVE METABOLIC Collected: 06/13/2018 Status: F [facility] 3[facility]04 PM [facility] REPOSITORY TYPE CODE TESTS RESULT OUT OF [...] 9 Performed By: #### L500.4050, L501.6710 #### [facility] [address] [place], [address] CRP Collected: 06/13/2018 Status: F Source: [place] 3:04 PM [facility] REPOSITORY TYPE CODE TESTS RESULT OUT OF RANGE REFERENCE UNITS LAB L501.6710 0.0-3.0 mg/L Normal < 2.90 C-REACTIVE PROT Result Comment: C-Reactive Protein (CRP) provides useful information for the diagnosis, therapy and monitoring of inflammatory processes and associated diseases. For the evaluation of Relative Risk for Cardiovascular Disease, a High Sensitivity CRP (HSCRP) should be ordered. Performed By: #### L500.4050, L501.6710 #### [facility] [address] [place], [address] DISCHARGE INSTRUCTION Observed: 06/07/2018 Status: F Source: [place] 3:55 PM [facility] REPOSITORY [facility] Medical Records Department [address] [place] [address] Discharge Instruction 06/07/18 1553 MR#: [id number] Acct: [id number] Name: LISA SEAY Rep #: [id number] : 1945 72 From: Clemente Eduardo MD [...] your Primary Care Provider. Call [facility] ([phone]) or report to the closest Emergency Room. Call 911 if necessary. 06/07/18 9543 <Electronically signed by Clemente Eduardo MD> Date Clemente Eduardo MD Cosigner Signature (If Indicated): Date CC: Con Johnson MD EMERGENCY DEPARTMENT Observed: 06/07/2018 Status: F Source: [place] SUMMARY 3:54 PM [facility] HOSPITAL REPOSITORY [facility] Medical Records Department [address] [place] [address] Emergency Department Summary 06/07/18 1549 MR#: [id number] Acct: [id number] Name: LISA SEAY Rep #: [id number] : 1945 72 From: Clemente Eduardo MD [...] ago. When it was removed by the engineer rf deployment she had no redness. However it is becoming more painful and she notes some redness around this abrasion. The engineer rf deployment believe that the cast created a little [...] Course and Treatment: I discussed with the engineer rf deployment on-call, Dr. Padgett. We both agree antibiotics will be the appropriate course of action. We will do Keflex. Patient will follow-up next week. Treatment Plan: [] Disposition: Discharge Impression: Left foot wound infection This note was generated with [employer] dictation software. It may contain incorrect words, [...] your Primary Care Provider. Call [facility] ([phone]) or report to the closest Emergency Room. Call 911 if necessary. 06/07/18 0807 <Electronically signed by Clemente Eduardo MD> Date Clemente Eduardo MD Cosigner Signature (If Indicated): Date CC: Con Johnson MD Observed: 06/05/2018 Status: F Source: [place] CULTURE, WOUND 3:15 PM [facility] REPOSITORY Gram Stain Gram Stain 1+ White Blood Cells 1+ Epithelial cells 1+ Gram positive cocci Wound Culture Possible skin contamination, further Identification and sensitivity will be performed only by physician's request. ORGANISM 1: Coag Negative Staph Amount Growth 1+ Performed By: #### M100.1400 #### [facility] [address] [place], [address] OT D/C OF NON Observed: 05/22/2018 Status: F Source: [place] [facility] PT 5:14 PM [facility] REPOSITORY [facility] [place] [address] / REHABILITATION SERVICES DISCHARGE SUMMARY MR#: [id number] Acct: [id number] Name: LISA SEAY Rep #: [id number] : 1945 72 From: Melissa Sorensen Referring [...] > 05/22/18 1714 CC: Con Johnson MD DERICK Signed CARDIOLOGY VISIT Observed: 05/22/2018 Status: F Source: [place] REPORT 3:58 PM [facility] REPOSITORY [facility] [address] [place] [address] OFFICE VISIT Date of Service: 05/22/18 MR#: [id number] Acct: [id number] Name: LISA SEAY Rep #: [id number] : 1945 Provider: Maribell Chau Age/Sex: 72/F Location: [facility] Status: Signed HPI HPI Details: LISA SEAY, [...] Reasons: 2 WK BP CK PER DJN Security Administrator Required: No Accompanied by: Is patient in [...] DAILY #90 tab 11/25/17 [Rx Confirmed 05/22/18] wxnwgb-wfpznxyg-ejlaowg 24,000-76,000-120,000 unit capsule,delayed rel 1 cap PO [...] (cerebrovascular accident) (Chronic) Atherosclerotic heart disease of false pass coronary artery without angina pectoris (Chronic) Diabetes [...] affect Assessment AND Plan 1. 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 Borjas @ [facility] 09/09/2014; PTCA/YASIR to Left main, LAD, and [...] Code Off vis,est,level 3 Diagnoses Atherosclerosis of false pass coronary artery of false pass heart without angina pectoris I25.10 Jamul vs. transplanted heart: false pass heart Essential hypertension I10 Hypertension type: essential hypertension Mixed hyperlipidemia E78.2 Hyperlipidemia type: mixed hyperlipidemia Peripheral arterial occlusive disease I77.9 Coding Level of Care Code Off vis,est,level 3 Diagnoses Atherosclerosis of false pass coronary artery of false pass heart without angina pectoris I25.10 Jamul vs. transplanted heart: false pass heart Essential hypertension I10 Hypertension type: essential hypertension Mixed hyperlipidemia E78.2 Hyperlipidemia type: mixed hyperlipidemia Peripheral arterial occlusive disease I77.9 05/22/18 1558 <Electronically signed by Maribell FLORES> Date Maribell FLORES Cosigner Signature: Date (if applicable) CC: Con Johnson MD CARDIOLOGY VISIT Observed: 05/08/2018 Status: F Source: [place] REPORT 1:53 PM [facility] REPOSITORY [facility] [address] [place] [address] OFFICE VISIT Date of Service: 05/08/18 MR#: [id number] Acct: [id number] Name: LISA SEAY Rep #: [id number] : 1945 Provider: Claus Hatfield MD Age/Sex: 72/F [place] [facility] [place] Status: Signed [facility] HPI Chief Complaint: Routine f/u Details: LISA [...] and gastric bypass. Patient was seen at [facility] in May 2017 for cellulitis and she subsequently underwent right transmetatarsal amputation on 06/18/17 secondary to osteomyelitis, chronic ulcer, and abscess. Patient states that she was doing well up until several months ago or so when she went to the [place] and developed exertional substernal chest pressure and [...] diagnosed with Charcot joint while down in [place]. The patient was admitted to a [place] hospital for approximately 7 days and then [...] was placed on 2 beta-fina therapies in [place]. 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 Borjas @ [facility] 09/09/2014; PTCA/YASIR to Left main, LAD, and [...] Code Off vis,est,level 3 Diagnoses Atherosclerosis of false pass coronary artery of false pass heart without angina pectoris I25.10 Jamul vs. transplanted heart: false pass heart Mixed hyperlipidemia E78.2 Hyperlipidemia type: mixed hyperlipidemia Essential hypertension I10 Hypertension type: essential hypertension Coding Level of Care Code Off vis,est,level 3 Diagnoses Atherosclerosis of false pass coronary artery of false pass heart without angina pectoris I25.10 Jamul vs. transplanted heart: false pass heart Mixed hyperlipidemia E78.2 Hyperlipidemia type: mixed hyperlipidemia Essential hypertension I10 Hypertension type: essential hypertension 05/08/18 1353 <Electronically signed by Claus Hatfield MD> Date Claus Hatfield MD Cosigner Signature: Date (if applicable) CC: Con Johnson MD CBC W/DIFF, AUTOMATED Collected: 05/01/2018 Status: F Source: [place] 2:17 PM [facility] REPOSITORY TYPE CODE TESTS RESULT OUT OF [...] 1.17 Performed By: #### L100.0100, L101.9900 #### [facility] [address] [place], [address] ERYTHROCYTE SED RATE Collected: 05/01/2018 Status: F Source: [place] 2:17 PM [facility] REPOSITORY TYPE CODE TESTS RESULT OUT OF RANGE REFERENCE UNITS LAB L102.0000 0-30 mm/hr Insufficient Normal SED quant. RATE Result Comment: SED RATE PORTION WILL NEED REDRAWN BETTE ANNABEL IS TAKING CARE OF THIS FOR US. MAF 18 AT 1558PM. Performed By: #### L100.0100, L101.9900 #### [facility] [address] [place], [address] CRP Collected: 05/01/2018 Status: F Source: [place] 2:17 PM [facility] REPOSITORY TYPE CODE TESTS RESULT OUT OF RANGE REFERENCE UNITS LAB L501.6710 0.0-3.0 mg/L High 22.30 C-REACTIVE PROT Result Comment: C-Reactive Protein (CRP) provides useful information for the diagnosis, therapy and monitoring of inflammatory processes and associated diseases. For the evaluation of Relative Risk for Cardiovascular Disease, a High Sensitivity CRP (HSCRP) should be ordered. Performed By: #### L501.6710 #### [facility] [address] [place], [place], [address] VITAMIN D,25 HYDROXY Collected: 05/01/2018 Status: F Source: [place] 2:17 PM [facility] REPOSITORY TYPE CODE TESTS RESULT OUT OF REFERENCE UNITS RANGE LAB L506.1000 29.95-100.01 ng/mL Low Vitamin D 15.7 25-OH Result Comment: Vitamin D 25(OH) Status Range Deficiency <20 ng/mL (50nmol/L) Insuffciency 20 - 30 ng/mL (50 - 75 nmol/L) Sufficiency 30 - 100 ng/mL (75 - 250 nmol/L) Toxicity >100 ng/mL (>250 nmol/L) Performed By: #### L506.1000 #### [facility] [address] [place], [address] ERYTHROCYTE SED RATE Collected: 04/02/2018 Status: F Source: [place] 11:59 AM [facility] REPOSITORY TYPE CODE TESTS RESULT OUT OF RANGE REFERENCE UNITS LAB L102.0000 0-30 mm/hr High SED RATE 38 Performed By: #### L101.9900, L100.0100 #### [facility] [address] [place], [place], [address] CBC W/DIFF, AUTOMATED Collected: 04/02/2018 Status: F Source: [place] 11:59 AM [facility] REPOSITORY TYPE CODE TESTS RESULT OUT OF [...] 1.61 Performed By: #### L101.9900, L100.0100 #### [facility] [address] [place], [address] COMPREHENSIVE METABOLIC Collected: 04/02/2018 Status: F Source: [place] [facility] 11:59 AM [facility] REPOSITORY TYPE CODE TESTS RESULT OUT OF [...] Performed By: #### L500.4050, L501.1400, L501.6710 #### [facility] [address] [place], [address] URIC ACID Collected: 04/02/2018 Status: F Source: [place] 11:59 AM [facility] REPOSITORY TYPE CODE TESTS RESULT OUT OF RANGE REFERENCE UNITS LAB L501.1400 2.6-6.0 mg/dL High URIC 6.2 Result Comment: The drugs N-Acetylcysteine and Metamizole may falsely depress this assay. Performed By: #### L500.4050, L501.1400, L501.6710 #### [facility] [address] [facility] [address], [address] CRP Collected: 04/02/2018 Status: F Source: [place] 11:59 AM [facility] REPOSITORY TYPE CODE TESTS RESULT OUT OF RANGE REFERENCE UNITS LAB L501.6710 0.0-3.0 mg/L High 58.90 C-REACTIVE PROT Result Comment: C-Reactive Protein (CRP) provides useful information for the diagnosis, therapy and monitoring of inflammatory processes and associated diseases. For the evaluation of Relative Risk for Cardiovascular Disease, a High Sensitivity CRP (HSCRP) should be ordered. Performed By: #### L500.4050, L501.1400, L501.6710 #### [facility] [facility] [address] [place], [place], [address] FOOT MIN 3 VIEWS Observed: 04/02/2018 Status: F Source: [place] 11:53 AM [facility] REPOSITORY [facility] Imaging Services [address] [place] [address] Foot min 3 Views MR#: [id number] Acct: [id number] Name: LISA SEAY Rep #: [id number] : 1945 F 72 From: Miah Brown MD PCP: Con Johnson MD Status: REG CLI Study: Foot min 3 Views Date of Exam: 04/02/18 Exam# [id number] Ordering Dr: Con Johnson MD STUDY: X-RAY [...] Service support , CC: Con Johnson MD Plant Controls Specialist: Signed OT GENERAL EVALUATION Observed: 03/17/2018 Status: F Source: [place] 9:46 AM [facility] REPOSITORY [facility] Occupational Therapy Health[address] [place], [place] [address] Fax REHABILITATION SERVICES INITIAL EVALUATION MR#: [id number] Acct: [id number] Name: LISA SEAY Rep #: [id number] : 1945 72 From: Melissa Sorensen Referring Dr.: Con Johnson MD Status: REG RCR Insurance: MEDICARE PART A B Eval Date: [facility] Patient's Visit Information LISA SEAY [...] Comments: ROM is WFL . - Strength Clinical Application Manager: R 32, L 28 lbs Lateral Pinch: [...] 45 - Goals Goal:: Pt. to increase performance reporter by 15-20 lbs to promote increased ability [...] to be FAXED BACK to us at [phone] for Medicare purposes. Please let me know if there are questions or concerns regarding this plan of care. Physician Signature: Date: <Electronically signed by Melissa Sorensen > 03/17/18 0946 CC: Con Johnson MD KMSonam Signed For Medicare only, by signing this I certify the plan of care. Physicians Signature Date CARDIOLOGY VISIT Observed: 01/30/2018 Status: F Source: [place] REPORT 3:54 PM [facility] REPOSITORY [facility] [address] [place] [address] OFFICE VISIT Date of Service: 01/30/18 MR#: [id number] Acct: [id number] Name: LISA SEAY Rep #: [id number] : 1945 Provider: Claus Hatfield MD Age/Sex: 72/F Location: [facility] Status: Signed HPI HPI Chief Complaint: Routine [...] and gastric bypass. Patient was seen at [facility] in May 2017 for cellulitis and she subsequently underwent right transmetatarsal amputation on 06/18/17 secondary to osteomyelitis, chronic ulcer, and abscess. Patient states that she was doing well up until the last month or so when she went to the [place] and developed exertional substernal chest pressure and [...] mg PO BID tab 06/07/17 [History Confirmed 01/30/18] Amlodipine Besylate [Norvasc] 5 [...] patch TOPICAL DAILY 01/30/18 [History Confirmed 01/30/18] ongymu-ocwkmkzm-xdujlgj 24,000-76,000-120,000 unit capsule,delayed rel 1 cap PO QAC cap 01/30/18 [History Confirmed 01/30/18] mirtazapine 45 mg tablet 45 mg PO QHS tab 01/30/18 [History Confirmed 01/30/18] [facility] Medical History History of CVA (cerebrovascular accident) (Chronic) Atherosclerotic heart disease of false pass coronary artery without angina pectoris (Chronic) Diabetes [...] affect Assessment AND Plan 1. 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 Borjas @ [facility] 09/09/2014; PTCA/YASIR to Left main, LAD, and OM1 per Dr. Hatfield 12/21/2014; Plan 1. Coronary artery disease: The patient appears to have hypertension induced anginal symptoms, as well as chest pain with exerting herself [place] high [place] on [place]. Patient has known coronary disease [...] Code Off vis,est,level 3 Diagnoses Atherosclerosis of false pass coronary artery of false pass heart without angina pectoris I25.10 Jamul vs. transplanted heart: false pass heart Mixed hyperlipidemia E78.2 Hyperlipidemia type: mixed hyperlipidemia Coding Level of Care Code Off vis,est,level 3 Diagnoses Atherosclerosis of false pass coronary artery of false pass heart without angina pectoris I25.10 Jamul vs. transplanted heart: false pass heart Mixed hyperlipidemia E78.2 Hyperlipidemia type: mixed hyperlipidemia 01/30/18 1554 <Electronically signed by Claus Hatfield MD> Date Claus Hatfield MD Cosigner Signature: Date (if applicable) CC: Con Johnson MD CBC W/DIFF, AUTOMATED Collected: 01/15/2018 Status: F Source: [place] 2:33 PM [facility] REPOSITORY TYPE CODE TESTS RESULT OUT OF [...] 1.55 Performed By: #### L100.0100, L101.9900 #### [facility] [address] [facility] [place], [place], [address] ERYTHROCYTE SED RATE Collected: 01/15/2018 Status: F Source: [place] 2:33 PM [facility] REPOSITORY TYPE CODE TESTS RESULT OUT OF RANGE REFERENCE UNITS LAB L102.0000 0-30 mm/hr High SED RATE 37 Performed By: #### L100.0100, L101.9900 #### [facility] [address] [facility] [place], [place], [address] COMPREHENSIVE METABOLIC Collected: 01/15/2018 Status: F Source: [facility] 2:33 PM [facility] REPOSITORY TYPE CODE TESTS RESULT OUT OF [...] By: #### L500.4050, L501.5200, L501.6710, L503.6550 #### [facility] [address] [place], [place], [id number] MAGNESIUM Collected: 01/15/2018 Status: F Source: [place] 2:33 PM [facility] REPOSITORY TYPE CODE TESTS RESULT OUT OF RANGE REFERENCE UNITS LAB L501.5200 1.6-2.6 mg/dL Normal MG 2.1 Performed By: #### L500.4050, L501.5200, L501.6710, L503.6550 #### [facility] [address] [place], [address] CRP Collected: 01/15/2018 Status: F Source: [place] 2:33 PM [facility] REPOSITORY TYPE CODE TESTS RESULT OUT OF [...] By: #### L500.4050, L501.5200, L501.6710, L503.6550 #### [facility] [address] [place], [address] FERRITIN Collected: 01/15/2018 Status: F Source: [place] 2:33 PM [facility] REPOSITORY TYPE CODE TESTS RESULT OUT OF RANGE REFERENCE UNITS LAB L503.6550 8-252 ng/mL Normal FERRITIN 10 Performed By: #### L500.4050, L501.5200, L501.6710, L503.6550 #### [facility] [address], [address] STRESS TEST ECHO W/ Observed: 01/15/2018 Status: F Source: [place] CONTRAST 10:03 AM [facility] REPOSITORY [facility] Cardiovascular Services [address] [place] [address] Stress Test Echo W/Contrast MR#: [id number] Acct: [id number] Name: LISA SEAY Rep #: [id number] : 1945 72 From: Claus Hatfield MD Primary Care: Alex ANAYA,Con Status: REG CLI Ordering Dr: Lars Wahl CLINICAL INVESTIGATOR-C Sex: F C Reason For Study: CHEST [...] Dictated: 01/13/18 1251 Date Transcribed: 01/15/18 1003 Plant Controls Specialist: Signed Observed: 12/20/2017 Status: F Source: [place] ENTERIC PATHOGEN 3:00 PM [facility] PANEL STOOL REPOSITORY PANEL STOOL Normal Reference [...] Not Detected Performed By: #### M100.637 #### [facility] [address] [place], [address] CBC W/DIFF, AUTOMATED Collected: 12/20/2017 Status: F Source: [place] 9:18 AM [facility] REPOSITORY TYPE CODE TESTS RESULT OUT OF [...] Lymph 1.96 Performed By: #### L100.0100 #### [facility] [address] [place], [address] COMPREHENSIVE METABOLIC Collected: 12/20/2017 Status: F Source: [place] [facility] 9:18 AM [facility] REPOSITORY TYPE CODE TESTS RESULT OUT OF [...] Performed By: #### L500.4050, L501.2450, L501.5200 #### [facility] [address], [address] LIPASE Collected: 12/20/2017 Status: F Source: [place] 9:18 AM [facility] REPOSITORY TYPE CODE TESTS RESULT OUT OF REFERENCE UNITS RANGE LAB L501.2450 73-393 U/L Low LIPASE 36 Performed By: #### L500.4050, L501.2450, L501.5200 #### [facility] [address] [place], [address] MAGNESIUM Collected: 12/20/2017 Status: F Source: [place] 9:18 AM [facility] REPOSITORY TYPE CODE TESTS RESULT OUT OF RANGE REFERENCE UNITS LAB L501.5200 1.6-2.6 mg/dL Normal MG 2.2 Performed By: #### L500.4050, L501.2450, L501.5200 #### [facility] [address] [facility] [place], [address] 12 LEAD ELECTROCARDIOGRAM Observed: 09/25/2017 Status: F Source: [place] 6:07 PM [facility] REPOSITORY [facility] Cardiovascular Services [address] [place] [address] 12 Lead EKG 09/21/17 0859 MR#: [id number] Acct: [id number] Name: LISA SEAY Rep #: [id number] : 1945 72 From: Trenton Prescott MD [...] ECG Confirmed by TRENTON PRESCOTT MD ([id number]), tape editor KRISTEN RUBI ([id number]) on 09/24/2017 1:59:21 PM Referred By: LIU Confirmed By:TRENTON PRESCOTT MD 09/24/17 1359 Date Trenton Prescott MD CC: Con Johnson MD; Bautista South EMERGENCY DEPARTMENT Observed: 09/21/2017 Status: F Source: [place] SUMMARY 2:09 PM [facility] REPOSITORY [facility] Medical Records Department [address] [place] [address] Emergency Department Summary 09/21/17 0859 MR#: [id number] Acct: [id number] Name: LISA SEAY Rep #: [id number] : 1945 72 From: Bautista Dixon PCP: [...] Patient currently medically cleared. We will have [facility] evaluate to help with disposition. Glucose improved to 274. Patient evaluated by [facility]. Patient transferred to [facility] under service of Dr. Garrett at [facility]. Treatment Plan: [] Disposition: Discharge Impression: 1. Suicidal ideation with depression 2. Chronic kidney disease 3. UTI 4. Elevated glucose This note was generated with Noesis Energyation software. It may contain incorrect words, spelling, [...] your Primary Care Provider. Call [facility] ([phone]) or report to the closest Emergency Room. Call 911 if necessary. 09/21/17 1409 <Electronically signed by Bautista Dixon> Date Bautista Dixon Cosigner Signature (If Indicated): Date CC: Con Johnson MD BEDSIDE GLUCOSE Collected: 09/21/2017 Status: F Source: [place] 11:37 AM [facility] REPOSITORY TYPE CODE TESTS RESULT OUT OF REFERENCE UNITS RANGE LAB L501.080 70-110 mg/dL High BEDSIDE GLU 274 Result Comment: MANAGEMENT OF PATIENT CARE PER NURSING PROTOCOL Performed By: #### L501.080 #### [facility] Point of Care [address] [place] [address] CBC W/DIFF, AUTOMATED Collected: 09/21/2017 Status: F Source: [place] 9:20 AM [facility] REPOSITORY TYPE CODE TESTS RESULT OUT OF [...] Lymph 1.14 Performed By: #### L100.0100 #### [facility] [address] [place], [place], [address] COMPREHENSIVE METABOLIC Collected: 09/21/2017 Status: F Source: [facility] 9:20 AM [facility] REPOSITORY TYPE CODE TESTS RESULT OUT OF [...] 7 Performed By: #### L500.4050, L501.9520 #### [facility] [address] [place], [place], [id number] THYROID STIM HORMONE Collected: 09/21/2017 Status: F Source: [place] (TSH) 9:20 AM [facility] REPOSITORY TYPE CODE TESTS RESULT OUT OF RANGE REFERENCE UNITS LAB L501.9520 0.358-3.74 uIU/mL Normal TSH 1.28 Performed By: #### L500.4050, L501.9520 #### [facility] [address] [place], [place], [id number] ALCOHOL, BLOOD Collected: 09/21/2017 Status: F Source: [place] (MEDICAL)-SERUM 9:20 AM [facility] REPOSITORY TYPE CODE TESTS RESULT OUT OF [...] fatal coma Performed By: #### L501.9100 #### [facility] [address] [place], [place], [address] VALPROIC ACID Collected: 09/21/2017 Status: F Source: [place] (DEPAKENE) LEVEL 9:20 AM [facility] REPOSITORY TYPE CODE TESTS RESULT OUT OF REFERENCE UNITS RANGE LAB L501.8100 50-100 ug/mL Low VALPROIC ACID 24 Performed By: #### L501.8100 #### [facility] [address] [place], [address] URINE DRUG SCREEN Collected: 09/21/2017 Status: F Source: [place] (VISTA) 9:00 AM [facility] REPOSITORY TYPE CODE TESTS RESULT OUT OF [...] Normal NEGATIVE Performed By: #### L505.5000 #### [facility] [address] [place], [address] URINALYSIS, COMPLETE Collected: 09/21/2017 Status: F Source: [place] 9:00 AM [facility] REPOSITORY Order Comment: Order Date: 09/21/17 How [...] URINE SEEN Performed By: #### L400.0001 #### [facility] [address] [facility] [place], [address] Observed: 09/21/2017 Status: F Source: [place] CULTURE, URINE 9:00 AM [facility] REPOSITORY Order Date: 09/21/17 Urine Culture ORGANISM 1: Mixed Gram Positive Organisms Altair Count 11,000-25,000 MIX CULTURE Mixed contaminants. Submit a new specimen if indicated. Performed By: #### M100.0650 #### [facility] [address] [facility] [place], [address] CARDIOLOGY VISIT Observed: 07/29/2017 Status: F Source: [place] REPORT 10:21 AM [facility] REPOSITORY [facility] [address] [place] [address] OFFICE VISIT Date of Service: 07/17/17 MR#: [id number] Acct: [id number] Name: LISA SEAY Rep #: [id number] : 1945 Provider: EVA Wahl Age/Sex: 72/F Location: [facility] Status: Signed HPI HPI Details: LISA SEAY, [...] and gastric bypass. 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 Borjas @ [facility] 09/09/2014; PTCA/YASIR to Left main, LAD, and [...] blood pressure readings. 3. Mixed hyperlipidemia E78.2 Fabian - CLIFFORD Burris Patient has not had any recent lipid panel. A new order for both lipid and liver panel will be mailed to patient to have done at her earliest convenience. Patient will continue current cholesterol-lowering medication. 4. Obesity E66.9 Plan - CLIFFORD Burris We will continue to promote and support healthy weight loss. 5. 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 transplanted heart: false pass heart Essential hypertension I10 Hypertension type: essential hypertension Mixed hyperlipidemia E78.2 Hyperlipidemia type: mixed hyperlipidemia Obesity E66.9 Obesity type: due to excess calories Obesity classification: adult class 1 (BMI 30 - 34.9) Body mass index: BMI 31.0-31.9 Bilateral carotid artery disease I77.9 Laterality: bilateral 07/17/17 1214 <Electronically signed by Lars JAIMEC> Date Lars Wahl CLINICAL INVESTIGATOR-C 07/29/17 1020<Electronically signed by Claus Hatfield MD> Cosigner Signature: Date (if applicable) Claus Hatfield MD CC: Con Johnson MD EMERGENCY DEPARTMENT Observed: 07/25/2017 Status: F Source: [place] SUMMARY 7:36 PM [facility] REPOSITORY [facility] Medical Records Department [address] [place] [address] Emergency Department Summary 07/25/171931 MR#: [id number] Acct: [id number] Name: LISA SEAY Rep #: [id number] : 1945 72 From: Bautista Dixon PCP: [...] foot amputation This note was generated with [employer] dictation software. It may contain incorrect words, [...] problems, contact your Primary Care Provider. Call [facility] ([phone]) or report to the closest Emergency Room. Call 911 if necessary. 07/25/171935 <Electronically signed by Bautista Dixon> Date Bautista Dixon Cosigner Signature (If Indicated): Date CC: Con Johnson MD Observed: 07/18/2017 Status: F Source: [place] CDIFF (MOLECULAR) 4:26 AM [facility] REPOSITORY RESULTS CALLED TO HTML DEVELOPER FOR DR.ERIC JOHNSON 07/18/17 [address] Andres. REPORT READ BACK BY SAME . Cdiff-Molecular Normal Reference Range = Negative C. Diff DNA Positive-Toxigenic C. Difficile DNA Detected NAAT METHOD Testing was performed using nucleic acid amplification ORGANISM 1: Toxigenic C. difficile DNA Performed By: #### M100.6796 #### [facility] [address] [place], [address] CBC W/DIFF, AUTOMATED Collected: 07/11/2017 Status: F Source: [place] 10:19 AM [facility] REPOSITORY TYPE CODE TESTS RESULT OUT OF [...] 2.04 Performed By: #### L100.0100, L101.9900 #### [facility] [address] [facility] [place], [place], [address] ERYTHROCYTE SED RATE Collected: 07/11/2017 Status: F Source: [place] 10:19 AM [facility] REPOSITORY TYPE CODE TESTS RESULT OUT OF RANGE REFERENCE UNITS LAB L102.0000 0-30 mm/hr High SED RATE 65 Performed By: #### L100.0100, L101.9900 #### [facility] [address] [facility] [facility] [address] HEMOGLOBIN A1C Collected: 07/11/2017 Status: F Source: [place] 10:19 AM [facility] REPOSITORY TYPE CODE TESTS RESULT OUT OF RANGE REFERENCE UNITS LAB L501.9985 4.2-6.3 % High HGB A1C 8.4 Performed By: #### L501.9985 #### [facility] [address] [facility] [place], [place], [address] COMPREHENSIVE METABOLIC Collected: 07/11/2017 Status: F Source: [facility] 10:19 AM [facility] REPOSITORY TYPE CODE TESTS RESULT OUT OF [...] Performed By: #### L500.4050, L501.6710, L501.9520 #### [facility] [address] [place], [address] CRP Collected: 07/11/2017 Status: F Source: [place] 10:19 AM [facility] REPOSITORY TYPE CODE TESTS RESULT OUT OF RANGE REFERENCE UNITS LAB L501.6710 0.0-3.0 mg/L Normal < 2.90 C-REACTIVE PROT Result Comment: C-Reactive Protein (CRP) provides useful information for the diagnosis, therapy and monitoring of inflammatory processes and associated diseases. For the evaluation of Relative Risk for Cardiovascular Disease, a High Sensitivity CRP (HSCRP) should be ordered. Performed By: #### L500.4050, L501.6710, L501.9520 #### [facility] [address] [place], [address] THYROID STIM HORMONE Collected: 07/11/2017 Status: F Source: [place] (TSH) 10:19 AM [facility] REPOSITORY TYPE CODE TESTS RESULT OUT OF RANGE REFERENCE UNITS LAB L501.9520 0.358-3.74 uIU/mL Normal TSH 0.40 Performed By: #### L500.4050, L501.6710, L501.9520 #### [facility] [address] [place], [address] BEDSIDE GLUCOSE Collected: 07/10/2017 Status: F Source: [place] 6:50 AM [facility] REPOSITORY TYPE CODE TESTS RESULT OUT OF REFERENCE UNITS RANGE LAB L501.080 70-110 mg/dL High BEDSIDE GLU 189 Result Comment: MANAGEMENT OF PATIENT CARE PER NURSING PROTOCOL Performed By: #### L501.080 #### [facility] Point of Care [address] [place] [address] BEDSIDE GLUCOSE Collected: 07/10/2017 Status: F Source: [place] 12:04 AM [facility] REPOSITORY TYPE CODE TESTS RESULT OUT OF REFERENCE UNITS RANGE LAB L501.080 70-110 mg/dL High BEDSIDE GLU 339 Result Comment: MANAGEMENT OF PATIENT CARE PER NURSING PROTOCOL Performed By: #### L501.080 #### [facility] Point of Care [address] [place] [address] BEDSIDE GLUCOSE Collected: 07/09/2017 Status: F Source: [place] 9:05 PM [facility] REPOSITORY TYPE CODE TESTS RESULT OUT OF REFERENCE UNITS RANGE LAB L501.080 70-110 mg/dL High alert BEDSIDE GLU 489 Result Comment: Dr Villela Followed MANAGEMENT OF PATIENT CARE PER NURSING PROTOCOL Performed By: #### L501.080 #### [facility] Point of Care [address] [place] [address] DISCHARGE SUMMARY Observed: 07/09/2017 Status: F Source: [place] 8:43 PM [facility] REPOSITORY [facility] Medical Records Department [address] [place] [address] Discharge Summary 07/08/17 2213 MR#: [id number] Acct: [id number] Name: LISA SEAY Rep #: [id number] : 1945 72 From: Adolfo Rush MD PCP: Con Johnson MD Status: ADM IN [facility] ADDENDUM by Adolfo Rush MD on 07/09/17 at 204 Code Visit Hold discharge until 07/10/2017. 07/09/172042 [...] heart catheterization (Chronic) CABG X 3 vessels [facility]:DANIEL to LAD, reverse SVG to dx and to 2nd OM per Dr. Borjas @ [facility] 09/09/2014; PTCA andDES to proximal and distal CX per Dr. Hatfield 12/21/2014; History of coronary artery bypass graft (Chronic) CABG X 3 vessels [facility]:DANIEL to LAD, reverse SVG to dx and to 2nd OM per Dr. 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 Borjas @ [facility] 09/09/2014; PTCA and YASIR to proximal and [...] 127 H 350 H Consultations 06/20/17 Consult: Onc/Wound/osha inspector Routine Comment: Reason for Consult:: right [...] PRN #30 tablet PRN Reason: Severe Pain (6-1010) ProMETHAzine [Phenergan] 25 mg PO Q6H PRN [...] Please Follow Up With: Dr. Magana When: [phone] Please Follow Up With: Dr Padgett Please Follow Up With: Dr. Webb When: 2 weeks. Disposition: Home Minutes spent on discharge:: 35 Patient Condition:: Stable Meaningful Use Info Meaningful Use Diagnoses (Choose all that apply): None applicable 07/08/172214 <Electronically signed by Adolfo Rush MD> Date Adolfo Rush MD Cosigner Signature (if applicable): Date CC: Con Johnson MD; Adolfo Rush MD Signed DISCHARGE INSTRUCTION Observed: 07/09/2017 Status: F Source: [place] 8:42 PM [facility] REPOSITORY [facility] Medical Records Department [address] [place] [address] Instructions for Home/Discharge Instructions 07/08/172209 MR#: [id number] Acct: [id number] Name: LSIA SEAY Rep #: [id number] : 1945 72 From: Adolfo Rush MD [...] PRN #30 tablet PRN Reason: Severe Pain (6-03/05) ProMETHAzine [Phenergan] 25 mg PO Q6H PRN [...] Please Follow Up With: Dr. Magana When: [phone] Please Follow Up With: Dr Padgett Please Follow Up With: Dr. Webb When: 2 weeks. Proposed Discharge Date: 07/09/17 07/08/17 7026 <Electronically signed by Adolfo Rush MD> Date Adolfo Rush MD CC: Con Johnson MD; Ivanna Magana DPM BEDSIDE GLUCOSE Collected: 07/09/2017 Status: F Source: [place] 4:53 PM [facility] REPOSITORY TYPE CODE TESTS RESULT OUT OF REFERENCE UNITS RANGE LAB L501.080 70-110 mg/dL High BEDSIDE GLU 203 Result Comment: Dr Villela Followed MANAGEMENT OF PATIENT CARE PER NURSING PROTOCOL Performed By: #### L501.080 #### [facility] Point of Care [address] [place] [address] BEDSIDE GLUCOSE Collected: 07/09/2017 Status: F Source: [place] 11:54 AM [facility] REPOSITORY TYPE CODE TESTS RESULT OUT OF REFERENCE UNITS RANGE LAB L501.080 70-110 mg/dL High BEDSIDE GLU 189 Result Comment: MANAGEMENT OF PATIENT CARE PER NURSING PROTOCOL Performed By: #### L501.080 #### [facility] Point of Care [address] [place] [address] BEDSIDE GLUCOSE Collected: 07/09/2017 Status: F Source: [place] 6:28 AM [facility] REPOSITORY TYPE CODE TESTS RESULT OUT OF REFERENCE UNITS RANGE LAB L501.080 70-110 mg/dL High BEDSIDE GLU 187 Result Comment: MANAGEMENT OF PATIENT CARE PER NURSING PROTOCOL Performed By: #### L501.080 #### [facility] Point of Care [address] [place] [address] BEDSIDE GLUCOSE Collected: 07/08/2017 Status: F Source: [place] 9:29 PM [facility] REPOSITORY TYPE CODE TESTS RESULT OUT OF REFERENCE UNITS RANGE LAB L501.080 70-110 mg/dL High BEDSIDE GLU 350 Result Comment: MANAGEMENT OF PATIENT CARE PER NURSING PROTOCOL Performed By: #### L501.080 #### [facility] Point of Care [address] [place] [address] BEDSIDE GLUCOSE Collected: 07/08/2017 Status: F Source: [place] 4:55 PM [facility] REPOSITORY TYPE CODE TESTS RESULT OUT OF REFERENCE UNITS RANGE LAB L501.080 70-110 mg/dL High BEDSIDE GLU 127 Result Comment: MANAGEMENT OF PATIENT CARE PER NURSING PROTOCOL Performed By: #### L501.080 #### [facility] Point of Care [address] [place] [address] BEDSIDE GLUCOSE Collected: 07/08/2017 Status: F Source: [place] 11:35 AM [facility] REPOSITORY TYPE CODE TESTS RESULT OUT OF REFERENCE UNITS RANGE LAB L501.080 70-110 mg/dL High BEDSIDE GLU 176 Result Comment: Insulin Given MANAGEMENT OF PATIENT CARE PER NURSING PROTOCOL Performed By: #### L501.080 #### [facility] Point of Care [address] [place] [address] BEDSIDE GLUCOSE Collected: 07/08/2017 Status: F Source: [place] 6:32 AM [facility] REPOSITORY TYPE CODE TESTS RESULT OUT OF REFERENCE UNITS RANGE LAB L501.080 70-110 mg/dL High BEDSIDE GLU 157 Result Comment: MANAGEMENT OF PATIENT CARE PER NURSING PROTOCOL Performed By: #### L501.080 #### [facility] Point of Care [address] [place] [address] BEDSIDE GLUCOSE Collected: 07/07/2017 Status: F Source: [place] 8:58 PM [facility] REPOSITORY TYPE CODE TESTS RESULT OUT OF REFERENCE UNITS RANGE LAB L501.080 70-110 mg/dL High BEDSIDE GLU 330 Result Comment: Dr Orders Followed MANAGEMENT OF PATIENT CARE PER NURSING PROTOCOL Performed By: #### L501.080 #### [facility] Point of Care [address] [place] [address] BEDSIDE GLUCOSE Collected: 07/07/2017 Status: F Source: [place] 4:55 PM [facility] REPOSITORY TYPE CODE TESTS RESULT OUT OF REFERENCE UNITS RANGE LAB L501.080 70-110 mg/dL High BEDSIDE GLU 286 Result Comment: Dr Orders Followed MANAGEMENT OF PATIENT CARE PER NURSING PROTOCOL Performed By: #### L501.080 #### [facility] Point of Care [address] [place] [address] BEDSIDE GLUCOSE Collected: 07/07/2017 Status: F Source: [place] 11:05 AM [facility] REPOSITORY TYPE CODE TESTS RESULT OUT OF REFERENCE UNITS RANGE LAB L501.080 70-110 mg/dL High BEDSIDE GLU 213 Result Comment: MANAGEMENT OF PATIENT CARE PER NURSING PROTOCOL Performed By: #### L501.080 #### [facility] Point of Care [address] [place] [address] BEDSIDE GLUCOSE Collected: 07/07/2017 Status: F Source: [place] 6:22 AM [facility] REPOSITORY TYPE CODE TESTS RESULT OUT OF REFERENCE UNITS RANGE LAB L501.080 70-110 mg/dL High BEDSIDE GLU 186 Result Comment: MANAGEMENT OF PATIENT CARE PER NURSING PROTOCOL Performed By: #### L501.080 #### [facility] Point of Care [address] [place] [address] BEDSIDE GLUCOSE Collected: 07/06/2017 Status: F Source: [place] 10:12 PM [facility] REPOSITORY TYPE CODE TESTS RESULT OUT OF REFERENCE UNITS RANGE LAB L501.080 70-110 mg/dL High BEDSIDE GLU 216 Result Comment: Dr Orders Followed MANAGEMENT OF PATIENT CARE PER NURSING PROTOCOL Performed By: #### L501.080 #### [facility] Point of Care [address] [place] [address] BEDSIDE GLUCOSE Collected: 07/06/2017 Status: F Source: [place] 4:59 PM [facility] REPOSITORY TYPE CODE TESTS RESULT OUT OF REFERENCE UNITS RANGE LAB L501.080 70-110 mg/dL High BEDSIDE GLU 295 Result Comment: Dr Orders Followed MANAGEMENT OF PATIENT CARE PER NURSING PROTOCOL Performed By: #### L501.080 #### [facility] Point of Care [address] [place] [address] BEDSIDE GLUCOSE Collected: 07/06/2017 Status: F Source: [place] 11:08 AM [facility] REPOSITORY TYPE CODE TESTS RESULT OUT OF REFERENCE UNITS RANGE LAB L501.080 70-110 mg/dL High BEDSIDE GLU 150 Result Comment: MANAGEMENT OF PATIENT CARE PER NURSING PROTOCOL Performed By: #### L501.080 #### [facility] Point of Care [address] [place] [address] BEDSIDE GLUCOSE Collected: 07/06/2017 Status: F Source: [place] 6:28 AM [facility] REPOSITORY TYPE CODE TESTS RESULT OUT OF REFERENCE UNITS RANGE LAB L501.080 70-110 mg/dL High BEDSIDE GLU 237 Result Comment: MANAGEMENT OF PATIENT CARE PER NURSING PROTOCOL Performed By: #### L501.080 #### [facility] Point of Care [address] [place] [address] BEDSIDE GLUCOSE Collected: 07/05/2017 Status: F Source: [place] 9:10 PM [facility] REPOSITORY TYPE CODE TESTS RESULT OUT OF REFERENCE UNITS RANGE LAB L501.080 70-110 mg/dL High BEDSIDE GLU 398 Result Comment: Dr Orders Followed MANAGEMENT OF PATIENT CARE PER NURSING PROTOCOL Performed By: #### L501.080 #### [facility] Point of Care [address] [place] [address] BEDSIDE GLUCOSE Collected: 07/05/2017 Status: F Source: [place] 4:56 PM [facility] REPOSITORY TYPE CODE TESTS RESULT OUT OF REFERENCE UNITS RANGE LAB L501.080 70-110 mg/dL High BEDSIDE GLU 196 Result Comment: Dr Orders Followed MANAGEMENT OF PATIENT CARE PER NURSING PROTOCOL Performed By: #### L501.080 #### [facility] Point of Care [address] [place] [address] BEDSIDE GLUCOSE Collected: 07/05/2017 Status: F Source: [place] 11:14 AM [facility] REPOSITORY TYPE CODE TESTS RESULT OUT OF REFERENCE UNITS RANGE LAB L501.080 70-110 mg/dL High BEDSIDE GLU 114 Result Comment: MANAGEMENT OF PATIENT CARE PER NURSING PROTOCOL Performed By: #### L501.080 #### [facility] Point of Care [address] [place] [address] BEDSIDE GLUCOSE Collected: 07/05/2017 Status: F Source: [place] 6:30 AM [facility] REPOSITORY TYPE CODE TESTS RESULT OUT OF REFERENCE UNITS RANGE LAB L501.080 70-110 mg/dL High BEDSIDE GLU 171 Result Comment: MANAGEMENT OF PATIENT CARE PER NURSING PROTOCOL Performed By: #### L501.080 #### [facility] Point of Care [address] [place], [place] [address] CBC W/DIFF, AUTOMATED Collected: 07/05/2017 Status: F Source: [place] 6:20 AM [facility] REPOSITORY Order Comment: NURSE DRAW TYPE CODE [...] Lymph 2.06 Performed By: #### L100.0100 #### [facility] [address] [place], [place], [address] BASIC METABOLIC Collected: 07/05/2017 Status: F Source: [place] PROFILE (BMP) 6:20 AM [facility] REPOSITORY Order Comment: NURSE DRAW. TYPE CODE [...] GAP 10 Performed By: #### L500.2500 #### [facility] [address] [place], [place], [address] BEDSIDE GLUCOSE Collected: 07/04/2017 Status: F Source: [place] 8:40 PM [facility] REPOSITORY TYPE CODE TESTS RESULT OUT OF REFERENCE UNITS RANGE LAB L501.080 70-110 mg/dL High BEDSIDE GLU 217 Result Comment: Dr Villela Followed MANAGEMENT OF PATIENT CARE PER NURSING PROTOCOL Performed By: #### L501.080 #### [facility] Point of Care [address] [place] [address] BEDSIDE GLUCOSE Collected: 07/04/2017 Status: F Source: [place] 5:00 PM [facility] REPOSITORY TYPE CODE TESTS RESULT OUT OF REFERENCE UNITS RANGE LAB L501.080 70-110 mg/dL High BEDSIDE GLU 159 Result Comment: Dr Orders Followed MANAGEMENT OF PATIENT CARE PER NURSING PROTOCOL Performed By: #### L501.080 #### [facility] Point of Care [address] [place] [address] BEDSIDE GLUCOSE Collected: 07/04/2017 Status: F Source: [place] 11:09 AM [facility] REPOSITORY TYPE CODE TESTS RESULT OUT OF REFERENCE UNITS RANGE LAB L501.080 70-110 mg/dL High BEDSIDE GLU 240 Result Comment: MANAGEMENT OF PATIENT CARE PER NURSING PROTOCOL Performed By: #### L501.080 #### [facility] Point of Care [address] [place] [address] BEDSIDE GLUCOSE Collected: 07/04/2017 Status: F Source: [place] 6:37 AM [facility] REPOSITORY TYPE CODE TESTS RESULT OUT OF REFERENCE UNITS RANGE LAB L501.080 70-110 mg/dL High BEDSIDE GLU 129 Result Comment: MANAGEMENT OF PATIENT CARE PER NURSING PROTOCOL Performed By: #### L501.080 #### [facility] Point of Care [address] [place] [address] BEDSIDE GLUCOSE Collected: 07/03/2017 Status: F Source: [place] 8:46 PM [facility] REPOSITORY TYPE CODE TESTS RESULT OUT OF REFERENCE UNITS RANGE LAB L501.080 70-110 mg/dL High BEDSIDE GLU 310 Result Comment: Dr Orders Followed MANAGEMENT OF PATIENT CARE PER NURSING PROTOCOL Performed By: #### L501.080 #### [facility] Point of Care [address] [place] [address] BEDSIDE GLUCOSE Collected: 07/03/2017 Status: F Source: [place] 5:07 PM [facility] REPOSITORY TYPE CODE TESTS RESULT OUT OF REFERENCE UNITS RANGE LAB L501.080 70-110 mg/dL High BEDSIDE GLU 203 Result Comment: Dr Orders Followed MANAGEMENT OF PATIENT CARE PER NURSING PROTOCOL Performed By: #### L501.080 #### [facility] Point of Care [address] [place] [address] BEDSIDE GLUCOSE Collected: 07/03/2017 Status: F Source: [place] 11:09 AM [facility] REPOSITORY TYPE CODE TESTS RESULT OUT OF REFERENCE UNITS RANGE LAB L501.080 70-110 mg/dL High BEDSIDE GLU 274 Result Comment: MANAGEMENT OF PATIENT CARE PER NURSING PROTOCOL Performed By: #### L501.080 #### [facility] Point of Care [address] [place] [address] BEDSIDE GLUCOSE Collected: 07/03/2017 Status: F Source: [place] 6:25 AM [facility] REPOSITORY TYPE CODE TESTS RESULT OUT OF REFERENCE UNITS RANGE LAB L501.080 70-110 mg/dL High BEDSIDE GLU 188 Result Comment: MANAGEMENT OF PATIENT CARE PER NURSING PROTOCOL Performed By: #### L501.080 #### [facility] Point of Care [address] [place] [address] BEDSIDE GLUCOSE Collected: 07/02/2017 Status: F Source: [place] 9:08 PM [facility] REPOSITORY TYPE CODE TESTS RESULT OUT OF REFERENCE UNITS RANGE LAB L501.080 70-110 mg/dL High BEDSIDE GLU 133 Result Comment: MANAGEMENT OF PATIENT CARE PER NURSING PROTOCOL Performed By: #### L501.080 #### [facility] Point of Care [address] [place] [address] BEDSIDE GLUCOSE Collected: 07/02/2017 Status: F Source: [place] 5:07 PM [facility] REPOSITORY TYPE CODE TESTS RESULT OUT OF REFERENCE UNITS RANGE LAB L501.080 70-110 mg/dL High BEDSIDE GLU 151 Result Comment: Dr Manohar Followed MANAGEMENT OF PATIENT CARE PER NURSING PROTOCOL Performed By: #### L501.080 #### [facility] Point of Care [address] [place] [address] BEDSIDE GLUCOSE Collected: 07/02/2017 Status: F Source: [place] 11:32 AM [facility] REPOSITORY TYPE CODE TESTS RESULT OUT OF REFERENCE UNITS RANGE LAB L501.080 70-110 mg/dL High BEDSIDE GLU 140 Result Comment: MANAGEMENT OF PATIENT CARE PER NURSING PROTOCOL Performed By: #### L501.080 #### [facility] Point [facility] [address] [place] [address] 12 LEAD ELECTROCARDIOGRAM Observed: 07/02/2017 Status: F Source: [place] 8:53 AM [facility] REPOSITORY [facility] [address] [place] [address] 12 Lead EKG 06/19/17 [id number] MR#: [id number] Acct: [id number] Name: LISA SEAY Rep #: [id number] : 1945 72 From: Trenton Prescott MD Attending Dr: Con Hernandez DO Status: DIS IN Ordering Dr: Con Hernandez DO Date: 06/19/17 Location: [facility] Sex: F C Admitted: 06/11/17 Test Reason [...] UNCONFIRMED Confirmed by TRENTON PRESCOTT MD ([id number]), tape editor KRISTEN RUBI ([id number]) on 07/02/2017 8:53:06 AM Referred By: Ivanna Magana Confirmed By:TRENTON PRESCOTT MD 07/02/17 0853 Date Trenton Prescott MD CC: Con Hernandez DO; Con Johnson MD Signed BEDSIDE GLUCOSE Collected: 07/02/2017 Status: F Source: [place] 6:30 AM [facility] REPOSITORY TYPE CODE TESTS RESULT OUT OF REFERENCE UNITS RANGE LAB L501.080 70-110 mg/dL High BEDSIDE GLU 173 Result Comment: MANAGEMENT OF PATIENT CARE PER NURSING PROTOCOL Performed By: #### L501.080 #### [facility] Point [facility] [address] [place] [address] BEDSIDE GLUCOSE Collected: 07/01/2017 Status: F Source: [place] 9:00 PM [facility] REPOSITORY TYPE CODE TESTS RESULT OUT OF REFERENCE UNITS RANGE LAB L501.080 70-110 mg/dL High BEDSIDE GLU 217 Result Comment: Dr Orders Followed MANAGEMENT OF PATIENT CARE PER NURSING PROTOCOL Performed By: #### L501.080 #### [facility] Point of Care [address] [place] [address] BEDSIDE GLUCOSE Collected: 07/01/2017 Status: F Source: [place] 4:52 PM [facility] REPOSITORY TYPE CODE TESTS RESULT OUT OF RANGE REFERENCE UNITS LAB L501.080 70-110 mg/dL Normal BEDSIDE GLU 110 Result Comment: Dr Orders Followed MANAGEMENT OF PATIENT CARE PER NURSING PROTOCOL Performed By: #### L501.080 #### [facility] Point [facility] [address] [place] [address] BEDSIDE GLUCOSE Collected: 07/01/2017 Status: F Source: [place] 11:04 AM [facility] REPOSITORY TYPE CODE TESTS RESULT OUT OF REFERENCE UNITS RANGE LAB L501.080 70-110 mg/dL High BEDSIDE GLU 206 Result Comment: MANAGEMENT OF PATIENT CARE PER NURSING PROTOCOL Performed By: #### L501.080 #### [facility] Point of [facility] [address] [place] [address] BEDSIDE GLUCOSE Collected: 07/01/2017 Status: F Source: [place] 6:40 AM [facility] REPOSITORY TYPE CODE TESTS RESULT OUT OF REFERENCE UNITS RANGE LAB L501.080 70-110 mg/dL High BEDSIDE GLU 202 Result Comment: MANAGEMENT OF PATIENT CARE PER NURSING PROTOCOL Performed By: #### L501.080 #### [facility] Point [facility] [address] [place] [address] BEDSIDE GLUCOSE Collected: 06/30/2017 Status: F Source: [place] 9:04 PM [facility] REPOSITORY TYPE CODE TESTS RESULT OUT OF REFERENCE UNITS RANGE LAB L501.080 70-110 mg/dL High BEDSIDE GLU 264 Result Comment: MANAGEMENT OF PATIENT CARE PER NURSING PROTOCOL Performed By: #### L501.080 #### [facility] Point [facility] Care [address] [place] [address] BEDSIDE GLUCOSE Collected: 06/30/2017 Status: F Source: [place] 4:43 PM [facility] REPOSITORY TYPE CODE TESTS RESULT OUT OF REFERENCE UNITS RANGE LAB L501.080 70-110 mg/dL High BEDSIDE GLU 193 Result Comment: MANAGEMENT OF PATIENT CARE PER NURSING PROTOCOL Performed By: #### L501.080 #### [facility] Point [facility] [address] [place] [address] BEDSIDE GLUCOSE Collected: 06/30/2017 Status: F Source: [place] 11:46 AM [facility] REPOSITORY TYPE CODE TESTS RESULT OUT OF REFERENCE UNITS RANGE LAB L501.080 70-110 mg/dL High BEDSIDE GLU 324 Result Comment: MANAGEMENT OF PATIENT CARE PER NURSING PROTOCOL Performed By: #### L501.080 #### [facility] Point [facility] [address] [place] [address] BEDSIDE GLUCOSE Collected: 06/30/2017 Status: F Source: [place] 6:28 AM [facility] REPOSITORY TYPE CODE TESTS RESULT OUT OF REFERENCE UNITS RANGE LAB L501.080 70-110 mg/dL High BEDSIDE GLU 137 Result Comment: MANAGEMENT OF PATIENT CARE PER NURSING PROTOCOL Performed By: #### L501.080 #### [facility] Point [facility] [address] [place] [address] BEDSIDE GLUCOSE Collected: 06/29/2017 Status: F Source: [place] 9:18 PM [facility] REPOSITORY TYPE CODE TESTS RESULT OUT OF REFERENCE UNITS RANGE LAB L501.080 70-110 mg/dL High BEDSIDE GLU 121 Result Comment: MANAGEMENT OF PATIENT CARE PER NURSING PROTOCOL Performed By: #### L501.080 #### [facility] Point [facility] [address] [place] [address] BEDSIDE GLUCOSE Collected: 06/29/2017 Status: F Source: [place] 5:12 PM [facility] REPOSITORY TYPE CODE TESTS RESULT OUT OF REFERENCE UNITS RANGE LAB L501.080 70-110 mg/dL High BEDSIDE GLU 219 Result Comment: MANAGEMENT OF PATIENT CARE PER NURSING PROTOCOL Performed By: #### L501.080 #### [facility] Point [facility] [address] [place] [address] BEDSIDE GLUCOSE Collected: 06/29/2017 Status: F Source: [place] 11:06 AM [facility] REPOSITORY TYPE CODE TESTS RESULT OUT OF REFERENCE UNITS RANGE LAB L501.080 70-110 mg/dL High BEDSIDE GLU 237 Result Comment: MANAGEMENT OF PATIENT CARE PER NURSING PROTOCOL Performed By: #### L501.080 #### [facility] Point [facility] [address] [place] [address] BEDSIDE GLUCOSE Collected: 06/29/2017 Status: F Source: [place] 6:36 AM [facility] REPOSITORY TYPE CODE TESTS RESULT OUT OF REFERENCE UNITS RANGE LAB L501.080 70-110 mg/dL High BEDSIDE GLU 140 Result Comment: MANAGEMENT OF PATIENT CARE PER NURSING PROTOCOL Performed By: #### L501.080 #### [facility] Point [facility] [address] [place] [address] BEDSIDE GLUCOSE Collected: 06/28/2017 Status: F Source: [place] 9:18 PM [facility] REPOSITORY TYPE CODE TESTS RESULT OUT OF REFERENCE UNITS RANGE LAB L501.080 70-110 mg/dL High BEDSIDE GLU 200 Result Comment: MANAGEMENT OF PATIENT CARE PER NURSING PROTOCOL Performed By: #### L501.080 #### [facility] Point [facility] [address] [place] [address] BEDSIDE GLUCOSE Collected: 06/28/2017 Status: F Source: [place] 5:07 PM [facility] REPOSITORY TYPE CODE TESTS RESULT OUT OF REFERENCE UNITS RANGE LAB L501.080 70-110 mg/dL High BEDSIDE GLU 188 Result Comment: MANAGEMENT OF PATIENT CARE PER NURSING PROTOCOL Performed By: #### L501.080 #### [facility] [address] [place] [address] BEDSIDE GLUCOSE Collected: 06/28/2017 Status: F Source: [place] 11:24 AM [facility] REPOSITORY TYPE CODE TESTS RESULT OUT OF REFERENCE UNITS RANGE LAB L501.080 70-110 mg/dL High BEDSIDE GLU 238 Result Comment: MANAGEMENT OF PATIENT CARE PER NURSING PROTOCOL Performed By: #### L501.080 #### [facility] [address] [place], [place] [address] CBC W/DIFF, AUTOMATED Collected: 06/28/2017 Status: F Source: [place] 6:25 AM [facility] REPOSITORY TYPE CODE TESTS RESULT OUT OF [...] Lymph 1.75 Performed By: #### L100.0100 #### [facility] [address] [place], [address] BASIC METABOLIC Collected: 06/28/2017 Status: F Source: [place] PROFILE (BMP) 6:25 AM [facility] REPOSITORY TYPE CODE TESTS RESULT OUT OF [...] GAP 9 Performed By: #### L500.2500 #### [facility] [address] [place], [place], [address] BEDSIDE GLUCOSE Collected: 06/28/2017 Status: F Source: [place] 6:14 AM [facility] REPOSITORY TYPE CODE TESTS RESULT OUT OF REFERENCE UNITS RANGE LAB L501.080 70-110 mg/dL High BEDSIDE GLU 189 Result Comment: MANAGEMENT OF PATIENT CARE PER NURSING PROTOCOL Performed By: #### L501.080 #### [facility] [address] [place], [place] [address] BEDSIDE GLUCOSE Collected: 06/27/2017 Status: F Source: [place] 8:52 PM [facility] REPOSITORY TYPE CODE TESTS RESULT OUT OF REFERENCE UNITS RANGE LAB L501.080 70-110 mg/dL High BEDSIDE GLU 326 Result Comment: Dr Orders Followed MANAGEMENT OF PATIENT CARE PER NURSING PROTOCOL Performed By: #### L501.080 #### [facility] [address] [place] [address] BEDSIDE GLUCOSE Collected: 06/27/2017 Status: F Source: [place] 4:58 PM [facility] REPOSITORY TYPE CODE TESTS RESULT OUT OF REFERENCE UNITS RANGE LAB L501.080 70-110 mg/dL High BEDSIDE GLU 268 Result Comment: Dr Orders Followed MANAGEMENT OF PATIENT CARE PER NURSING PROTOCOL Performed By: #### L501.080 #### [facility] [address] [place] [address] BEDSIDE GLUCOSE Collected: 06/27/2017 Status: F Source: [place] 10:57 AM [facility] REPOSITORY TYPE CODE TESTS RESULT OUT OF REFERENCE UNITS RANGE LAB L501.080 70-110 mg/dL High BEDSIDE GLU 249 Result Comment: MANAGEMENT OF PATIENT CARE PER NURSING PROTOCOL Performed By: #### L501.080 #### [facility] [address] [place] [address] BEDSIDE GLUCOSE Collected: 06/27/2017 Status: F Source: [place] 6:26 AM [facility] REPOSITORY TYPE CODE TESTS RESULT OUT OF REFERENCE UNITS RANGE LAB L501.080 70-110 mg/dL High BEDSIDE GLU 183 Result Comment: MANAGEMENT OF PATIENT CARE PER NURSING PROTOCOL Performed By: #### L501.080 #### [facility] [address] [place] [address] BEDSIDE GLUCOSE Collected: 06/26/2017 Status: F Source: [place] 9:29 PM [facility] REPOSITORY TYPE CODE TESTS RESULT OUT OF REFERENCE UNITS RANGE LAB L501.080 70-110 mg/dL High BEDSIDE GLU 170 Result Comment: MANAGEMENT OF PATIENT CARE PER NURSING PROTOCOL Performed By: #### L501.080 #### [facility] Point of Care [address] [place] [address] BEDSIDE GLUCOSE Collected: 06/26/2017 Status: F Source: [place] 8:15 PM [facility] REPOSITORY TYPE CODE TESTS RESULT OUT OF REFERENCE UNITS RANGE LAB L501.080 70-110 mg/dL High BEDSIDE GLU 141 Result Comment: MANAGEMENT OF PATIENT CARE PER NURSING PROTOCOL Performed By: #### L501.080 #### [facility] Point of Care [address] [place], [place] [id number] (449) BEDSIDE GLUCOSE Collected: 06/26/2017 Status: F Source: [place] 5:02 PM [facility] REPOSITORY TYPE CODE TESTS RESULT OUT OF REFERENCE UNITS RANGE LAB L501.080 70-110 mg/dL High BEDSIDE GLU 116 Result Comment: MANAGEMENT OF PATIENT CARE PER NURSING PROTOCOL Performed By: #### L501.080 #### [facility] Point of Care [address] [place], [place] [id number] ERYTHROCYTE SED RATE Collected: 06/26/2017 Status: F Source: [place] 12:06 PM [facility] REPOSITORY TYPE CODE TESTS RESULT OUT OF RANGE REFERENCE UNITS LAB L102.0000 0-30 mm/hr High SED RATE 87 Performed By: #### L101.9900 #### [facility] [address] [place], [address] CRP Collected: 06/26/2017 Status: F Source: [place] 12:06 PM [facility] REPOSITORY TYPE CODE TESTS RESULT OUT OF RANGE REFERENCE UNITS LAB L501.6710 0.0-3.0 mg/L High 48.60 C-REACTIVE PROT Result Comment: C-Reactive Protein (CRP) provides useful information for the diagnosis, therapy and monitoring of inflammatory processes and associated diseases. For the evaluation of Relative Risk for Cardiovascular Disease, a High Sensitivity CRP (HSCRP) should be ordered. Performed By: #### L501.6710 #### [facility] [address] [place], [place], [address] BEDSIDE GLUCOSE Collected: 06/26/2017 Status: F Source: [place] 11:05 AM [facility] REPOSITORY TYPE CODE TESTS RESULT OUT OF REFERENCE UNITS RANGE LAB L501.080 70-110 mg/dL High BEDSIDE GLU 238 Result Comment: MANAGEMENT OF PATIENT CARE PER NURSING PROTOCOL Performed By: #### L501.080 #### [facility] Point of Care [address] [place] [address] BEDSIDE GLUCOSE Collected: 06/26/2017 Status: F Source: [place] 6:35 AM [facility] REPOSITORY TYPE CODE TESTS RESULT OUT OF REFERENCE UNITS RANGE LAB L501.080 70-110 mg/dL High BEDSIDE GLU 217 Result Comment: MANAGEMENT OF PATIENT CARE PER NURSING PROTOCOL Performed By: #### L501.080 #### [facility] Point of Care [address] [place] [address] BEDSIDE GLUCOSE Collected: 06/25/2017 Status: F Source: [place] 9:26 PM [facility] REPOSITORY TYPE CODE TESTS RESULT OUT OF REFERENCE UNITS RANGE LAB L501.080 70-110 mg/dL High BEDSIDE GLU 368 Result Comment: Dr Villela Followed MANAGEMENT OF PATIENT CARE PER NURSING PROTOCOL Performed By: #### L501.080 #### [facility] Point of Care [address] [place] [address] BEDSIDE GLUCOSE Collected: 06/25/2017 Status: F Source: [place] 5:06 PM [facility] REPOSITORY TYPE CODE TESTS RESULT OUT OF RANGE REFERENCE UNITS LAB L501.080 70-110 mg/dL Normal BEDSIDE GLU 103 Result Comment: MANAGEMENT OF PATIENT CARE PER NURSING PROTOCOL Performed By: #### L501.080 #### [facility] Point of Care [address] [place] [address] BEDSIDE GLUCOSE Collected: 06/25/2017 Status: F Source: [place] 1:21 PM [facility] REPOSITORY TYPE CODE TESTS RESULT OUT OF REFERENCE UNITS RANGE LAB L501.080 70-110 mg/dL High BEDSIDE GLU 189 Result Comment: MANAGEMENT OF PATIENT CARE PER NURSING PROTOCOL Performed By: #### L501.080 #### [facility] Point of Care [address] [place] [address] BEDSIDE GLUCOSE Collected: 06/25/2017 Status: F Source: [place] 11:28 AM [facility] REPOSITORY TYPE CODE TESTS RESULT OUT OF REFERENCE UNITS RANGE LAB L501.080 70-110 mg/dL High BEDSIDE GLU 123 Result Comment: MANAGEMENT OF PATIENT CARE PER NURSING PROTOCOL Performed By: #### L501.080 #### [facility] Point of Care [address] [place] [address] BEDSIDE GLUCOSE Collected: 06/25/2017 Status: F Source: [place] 6:29 AM [facility] REPOSITORY TYPE CODE TESTS RESULT OUT OF REFERENCE UNITS RANGE LAB L501.080 70-110 mg/dL High BEDSIDE GLU 159 Result Comment: MANAGEMENT OF PATIENT CARE PER NURSING PROTOCOL Performed By: #### L501.080 #### [facility] Point of Care [address] [place] [address] BEDSIDE GLUCOSE Collected: 06/24/2017 Status: F Source: [place] 9:51 PM [facility] REPOSITORY TYPE CODE TESTS RESULT OUT OF REFERENCE UNITS RANGE LAB L501.080 70-110 mg/dL High BEDSIDE GLU 308 Result Comment: MANAGEMENT OF PATIENT CARE PER NURSING PROTOCOL Performed By: #### L501.080 #### [facility] Point of Care [address] [place] [address] BEDSIDE GLUCOSE Collected: 06/24/2017 Status: F Source: [place] 4:56 PM [facility] REPOSITORY TYPE CODE TESTS RESULT OUT OF RANGE REFERENCE UNITS LAB L501.080 70-110 mg/dL Normal BEDSIDE GLU 106 Result Comment: MANAGEMENT OF PATIENT CARE PER NURSING PROTOCOL Performed By: #### L501.080 #### [facility] Point of Care [address] [place] [address] BEDSIDE GLUCOSE Collected: 06/24/2017 Status: F Source: [place] 10:59 AM [facility] REPOSITORY TYPE CODE TESTS RESULT OUT OF REFERENCE UNITS RANGE LAB L501.080 70-110 mg/dL High BEDSIDE GLU 167 Result Comment: MANAGEMENT OF PATIENT CARE PER NURSING PROTOCOL Performed By: #### L501.080 #### [facility] Point of Care [address] [place] [address] BEDSIDE GLUCOSE Collected: 06/24/2017 Status: F Source: [place] 6:37 AM [facility] REPOSITORY TYPE CODE TESTS RESULT OUT OF REFERENCE UNITS RANGE LAB L501.080 70-110 mg/dL High BEDSIDE GLU 153 Result Comment: MANAGEMENT OF PATIENT CARE PER NURSING PROTOCOL Performed By: #### L501.080 #### [facility] Point of Care [address] [place] [address] BEDSIDE GLUCOSE Collected: 06/23/2017 Status: F Source: [place] 9:18 PM [facility] REPOSITORY TYPE CODE TESTS RESULT OUT OF REFERENCE UNITS RANGE LAB L501.080 70-110 mg/dL High BEDSIDE GLU 238 Result Comment: MANAGEMENT OF PATIENT CARE PER NURSING PROTOCOL Performed By: #### L501.080 #### [facility] Point of Care [address] [place] [address] BEDSIDE GLUCOSE Collected: 06/23/2017 Status: F Source: [place] 5:09 PM [facility] REPOSITORY TYPE CODE TESTS RESULT OUT OF REFERENCE UNITS RANGE LAB L501.080 70-110 mg/dL High BEDSIDE GLU 141 Result Comment: Dr Orders Followed MANAGEMENT OF PATIENT CARE PER NURSING PROTOCOL Performed By: #### L501.080 #### [facility] Point of Care [address] [place] [address] BEDSIDE GLUCOSE Collected: 06/23/2017 Status: F Source: [place] 11:16 AM [facility] REPOSITORY TYPE CODE TESTS RESULT OUT OF REFERENCE UNITS RANGE LAB L501.080 70-110 mg/dL High BEDSIDE GLU 374 Result Comment: MANAGEMENT OF PATIENT CARE PER NURSING PROTOCOL Performed By: #### L501.080 #### [facility] Point of Care [address] [place] [address] BEDSIDE GLUCOSE Collected: 06/23/2017 Status: F Source: [place] 6:19 AM [facility] REPOSITORY TYPE CODE TESTS RESULT OUT OF REFERENCE UNITS RANGE LAB L501.080 70-110 mg/dL High BEDSIDE GLU 151 Result Comment: MANAGEMENT OF PATIENT CARE PER NURSING PROTOCOL Performed By: #### L501.080 #### [facility] Point of Care [address] [place] [address] BEDSIDE GLUCOSE Collected: 06/19/2017 Status: F Source: [place] 9:08 PM [facility] REPOSITORY TYPE CODE TESTS RESULT OUT OF REFERENCE UNITS RANGE LAB L501.080 70-110 mg/dL High BEDSIDE GLU 135 Result Comment: MANAGEMENT OF PATIENT CARE PER NURSING PROTOCOL Performed By: #### L501.080 #### [facility] Point of Care [address] [place] [address] BEDSIDE GLUCOSE Collected: 06/19/2017 Status: F Source: [place] 4:51 PM [facility] REPOSITORY TYPE CODE TESTS RESULT OUT OF RANGE REFERENCE UNITS LAB L501.080 70-110 mg/dL Normal BEDSIDE GLU 87 Result Comment: MANAGEMENT OF PATIENT CARE PER NURSING PROTOCOL Performed By: #### L501.080 #### [facility] Point of Care [address] [place], [place] [address] BEDSIDE GLUCOSE Collected: 06/19/2017 Status: F Source: [place] 11:54 AM [facility] REPOSITORY TYPE CODE TESTS RESULT OUT OF REFERENCE UNITS RANGE LAB L501.080 70-110 mg/dL High BEDSIDE GLU 231 Result Comment: MANAGEMENT OF PATIENT CARE PER NURSING PROTOCOL Performed By: #### L501.080 #### [facility] Point of Care [address] [place], [place] [address] OPERATIVE REPORT Observed: 06/19/2017 Status: F Source: [place] 10:53 AM [facility] REPOSITORY [facility] Medical Records Department [address] [place] [address] Operative Report 06/18/17 1741 MR#: [id number] Acct: [id number] Name: LISA SEAY Rep #: [id number] : 1945 72 From: Ivanna Magana DPM PCP: Con Johnson MD Status: ADM IN Y Location: MS2 [id number] Problem List (1) Ulcer at the right [...] Vicryl, 2-0 nylon, 3-0 nylon Complications: None global vp creative + content marketing: Stevenson Padgett - Type of Anesthesia:: Local [...] in Betadine, gauze, abdominal pads, Kerlix, and Arjun wrap was applied. After procedure: The patient [...] lab trends will be monitored. I recommend fdc facility placement and this is pending. I will follow her closely while in house. Ivanna Magana DPM, [facility] 06/19/17 1053 <Electronically signed by Ivanna Magana DPM> Date Ivanna Magana DPM CC: Con Johnson MD; Ivanna Magana DPM; Adam Webb MD Signed BEDSIDE GLUCOSE Collected: 06/19/2017 Status: F Source: [place] 8:20 AM [facility] REPOSITORY TYPE CODE TESTS RESULT OUT OF RANGE REFERENCE UNITS LAB L501.080 70-110 mg/dL Normal BEDSIDE GLU 96 Result Comment: MANAGEMENT OF PATIENT CARE PER NURSING PROTOCOL Performed By: #### L501.080 #### [place] [facility] Point of Care [address] [place] [address] FOOT MIN 3 VIEWS Observed: 06/19/2017 Status: F Source: [place] 8:10 AM [facility] REPOSITORY [facility] Imaging Services [address] [address] Foot min 3 Views MR#: [id number] Acct: [id number] Name: LISA SEAY Rep #: [id number] : 1945 F 72 From: Lucas Campoverde MD PCP: Con Johnson MD Status: ADM IN Study: Foot min 3 Views Date of Exam: 06/19/17 Exam# [id number] Ordering Dr: Ivanna Magana DPM STUDY: X-RAY [...] CC: Con Johnson MD; Ivanna Magana DPM Plant Controls Specialist: Signed BASIC METABOLIC Collected: 06/19/2017 Status: F Source: [place] PROFILE (BMP) 6:05 AM [facility] REPOSITORY Order Comment: SPECIMEN OBTAINED FROM LINE [...] GAP 8 Performed By: #### L500.2500 #### [facility] [address] [place], [address] CBC W/DIFF, AUTOMATED Collected: 06/19/2017 Status: F Source: [place] 6:05 AM [facility] REPOSITORY Order Comment: SPECIMEN OBTAINED FROM LINE [...] Lymph 2.42 Performed By: #### L100.0100 #### [facility] [address] [place], [place], [address] BEDSIDE GLUCOSE Collected: 06/18/2017 Status: F Source: [place] 9:29 PM [facility] REPOSITORY TYPE CODE TESTS RESULT OUT OF REFERENCE UNITS RANGE LAB L501.080 70-110 mg/dL High BEDSIDE GLU 287 Result Comment: MANAGEMENT OF PATIENT CARE PER NURSING PROTOCOL Performed By: #### L501.080 #### [facility] Point of Care [address], [place] [id number] BEDSIDE GLUCOSE Collected: 06/18/2017 Status: F Source: [place] 6:46 PM [facility] REPOSITORY TYPE CODE TESTS RESULT OUT OF REFERENCE UNITS RANGE LAB L501.080 70-110 mg/dL High BEDSIDE GLU 133 Result Comment: MANAGEMENT OF PATIENT CARE PER NURSING PROTOCOL Performed By: #### L501.080 #### [facility] Point of Care [address] [place], [place] [id number] Observed: 06/18/2017 Status: F Source: [place] CULTURE, DEEP WOUND 4:14 PM [facility] REPOSITORY Order Date: 12/26/16 Comments: COLLECTED IN OR 1614 CLEARANCE FRAGMENT RIGHT FOOT Gram Stain Gram Stain No White Blood Cells No organisms seen Wound Culture There are no CLSI standards for interpretation of this Drug/Organism combination. ORGANISM 1: Corynebacterium striatum Amount Growth Very Rare Cult, Anaerobic No anaerobic bacteria isolated. Performed By: #### M100.1500 #### [facility] [address] [place], [address] FOOT 2 VIEWS Observed: 06/18/2017 Status: F Source: [place] 3:16 PM [facility] REPOSITORY [facility] Imaging Services [address] [place] [address] Foot 2 Views MR#: [id number] Acct: [id number] Name: LISA SEAY Rep #: [id number] : 1945 F 72 From: Delvin Morton MD PCP: Con Johnson MD Status: ADM IN Study: Foot 2 Views Date of Exam: 06/18/17 Exam# [id number] Ordering Dr: Con Hernandez DO STUDY: X-RAY - RIGHT FOOT CLINICAL: Female, 72 years old. Amputation and debridement. TECHNIQUE: 2 coned-down view(s) of the foot were obtained intraoperatively.. COMPARISON: Comparison is made with prior examination dated June 13, 2017. FINDINGS: The patient is status post transmetatarsal amputation. Postoperative soft tissue changes. RAD/Foot 2 Views IMPRESSION: Status post transmetatarsal amputation. Postoperative soft tissue changes. Electronically Signed: Delvin Morton MD at 13:33 EST Tel [phone], Service support , CC: Con Hernandez DO; Con Johnson MD Plant Controls Specialist: Signed BEDSIDE GLUCOSE Collected: 06/18/2017 Status: F Source: [place] 3:14 PM [facility] REPOSITORY TYPE CODE TESTS RESULT OUT OF REFERENCE UNITS RANGE LAB L501.080 70-110 mg/dL High BEDSIDE GLU 189 Result Comment: MANAGEMENT OF PATIENT CARE PER NURSING PROTOCOL Performed By: #### L501.080 #### [facility] Point of Care [address] [place] [address] BEDSIDE GLUCOSE Collected: 06/18/2017 Status: F Source: [place] 12:17 PM [facility] REPOSITORY TYPE CODE TESTS RESULT OUT OF REFERENCE UNITS RANGE LAB L501.080 70-110 mg/dL High BEDSIDE GLU 202 Result Comment: MANAGEMENT OF PATIENT CARE PER NURSING PROTOCOL Performed By: #### L501.080 #### [facility] Point of Care [address] [place] [address] BEDSIDE GLUCOSE Collected: 06/18/2017 Status: F Source: [place] 6:16 AM [facility] REPOSITORY TYPE CODE TESTS RESULT OUT OF REFERENCE UNITS RANGE LAB L501.080 70-110 mg/dL High BEDSIDE GLU 177 Result Comment: MANAGEMENT OF PATIENT CARE PER NURSING PROTOCOL Performed By: #### L501.080 #### [facility] Point of Care [address] [facility] [address] CBC W/DIFF, AUTOMATED Collected: 06/18/2017 Status: F Source: [place] 5:40 AM [facility] REPOSITORY TYPE CODE TESTS RESULT OUT OF RANGE REFERENCE UNITS LAB L100.1000 4.4-11.0 K/mm3 Normal WBC 7.1 LAB L100.1200 4.2-5.4 M/mm3 Low RBC 3.75 LAB L100.1300 12.0-15.0 g/dl Low HGB 10.0 LAB L100.1400 37-47 % Low HCT 31.4 LAB L100.1500 81-99 fL Normal MCV 83.7 LAB L100.1600 27.0-32.0 pg Low MCH 26.7 LAB L100.1700 32-36 g/gl Low MCHC 31.8 LAB L100.1810 11.6-14.6 % High RDW CV 15.5 LAB L100.1820 35.1-43.9 fl High RDW SD 46.1 LAB L100.1900 150-450 K/mm3 Normal PLT 265 LAB L100.2000 6.2-12.0 fl Normal MPV 9.2 LAB L100.2100 47-70 % Normal NEUT% 52.4 LAB L100.2200 19-41 % Normal LY% 31.8 LAB L100.2300 0-10 % Normal MONO% 8.5 LAB L100.2400 0-5 % High EO% 6.0 LAB L100.2500 0-1 % Normal BASO% 0.6 LAB L100.2550 0.0-0.9 % Normal IM GRAN % 0.700 Result Comment: IG% - Immature Granulocytes (promyelocytes, myelocytes and metamyelocytes) > 1% indicates that a LEFT SHIFT is Present. LAB L100.2620 2.0-7.7 X10 3/uL Normal Absolute Neut 3.7 LAB L100.2720 0.83-4.51 X10 3/ul Normal Absolute Lymph 2.24 Performed By: #### L100.0100 #### [facility] [address] [place], [address] PROTHROMBIN TIME W/INR Collected: 06/18/2017 Status: F Source: [place] 5:40 AM [facility] REPOSITORY TYPE CODE TESTS RESULT OUT OF RANGE REFERENCE UNITS LAB L300.4150 11.7-14.9 SECONDS Normal PROTIME 13.8 LAB L300.4200 Normal INR 1.1 Performed By: #### L300.3900, L300.4310 #### [facility] [address] [place], [address] PARTIAL THROMBOPLAST Collected: 06/18/2017 Status: F Source: [place] TIME 5:40 AM [facility] REPOSITORY TYPE CODE TESTS RESULT OUT OF RANGE REFERENCE UNITS LAB L300.4310 24.1-36.2 Seconds Normal PTT 32.6 Performed By: #### L300.3900, L300.4310 #### [facility] [address] [place], [address] BASIC METABOLIC Collected: 06/18/2017 Status: F Source: [place] PROFILE (BMP) 5:40 AM [facility] REPOSITORY TYPE CODE TESTS RESULT OUT OF RANGE REFERENCE UNITS LAB L501.0100 70-110 mg/dL High GLU 184 Result Comment: Fasting Glucose result greater than or equal to 126 mg/dL suggests DIABETES MELLITUS per A.D.A. criteria. LAB L501.1000 7-18 mg/dL High BUN 32 LAB L501.1100 0.55-1.02 mg/dL High CREAT,SERUM 1.40 Result Comment: The validity of the calculated GFR AND GFRAA in patients over 70 years has not been determined. Clinical correlation is essential. LAB L501.1110 >60 mL/min Low EST GFR 40 Result Comment: Non- GFR Calc LAB L501.1115 >60 mL/min Low EST GFR - AA 48 Result Comment: GFR Calc LAB L501.1255 ml/min Normal Estimated CRCL 30.93 LAB L501.1300 10-20 RATIO High BUN/CRE 22.9 LAB L501.2200 8.5-10 mg/dL Normal .1 CA 8.7 LAB L501.5300 136-14 mmol/L Normal 5 NA 143 LAB L501.5600 3.5-5. mmol/L Normal 1 K 4.3 LAB L501.5900 98-107 mmol/L High CL 111 LAB L501.6100 21.0-3 mmol/L Normal 2.0 CO2 24.0 LAB L501.6200 5-15 Normal GAP 8 Performed By: #### L500.2500, L501.9520 #### [facility] [address] [place] [address]. [place], [place], [id number] THYROID STIM HORMONE Collected: 06/18/2017 Status: F Source: [place] (TSH) 5:40 AM [facility] REPOSITORY TYPE CODE TESTS RESULT OUT OF RANGE REFERENCE UNITS LAB L501.9520 0.358-3.74 uIU/mL Normal TSH 1.74 Performed By: #### L500.2500, L501.9520 #### [facility] [address] [facility] [place], [place], [id number] BEDSIDE GLUCOSE Collected: 06/17/2017 Status: F Source: [place] 10:12 PM [facility] REPOSITORY TYPE CODE TESTS RESULT OUT OF REFERENCE UNITS RANGE LAB L501.080 70-110 mg/dL High BEDSIDE GLU 273 Result Comment: MANAGEMENT OF PATIENT CARE PER NURSING PROTOCOL Performed By: #### L501.080 #### [facility] Point of Care [address] [place] [address] BEDSIDE GLUCOSE Collected: 06/17/2017 Status: F Source: [place] 4:01 PM [facility] REPOSITORY TYPE CODE TESTS RESULT OUT OF REFERENCE UNITS RANGE LAB L501.080 70-110 mg/dL High BEDSIDE GLU 126 Result Comment: MANAGEMENT OF PATIENT CARE PER NURSING PROTOCOL Performed By: #### L501.080 #### [facility] Point of Care [address] [place] [address] OPERATIVE REPORT Observed: 06/17/2017 Status: F Source: [place] 1:24 PM [facility] REPOSITORY [facility] Medical Records [place] [address] Operative Report 06/13/17 1836 MR#: [id number] Acct: [id number] Name: LISA SEAY Rep #: [id number] : 1945 71 From: Stevenson Padgett DPM PCP: Con Johnson MD Status: ADM IN Location: [facility] [id number] Problem List (1) Abscess of right foot Status: Acute (2) 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 Post-Operative Diagnosis: same Surgery/Procedure Performed:: Debridement of necrotic, non- viable, infected soft tissue of the right foot and resection of 3rd metatarsal head. Description of Surgical Findings:: Necrotic, non-viable, infected soft tissue of the right foot and bone of the right 3rd metatarsal head. Hemostasis was controlled. Please see details in operative report. Hemostasis: Anatomic dissection. Tourniquet not inflated. global vp creative + content marketing: Ivanna Magana - Central Supply Supervisor: Nicholas Gamino PGY3 Type of Anesthesia:: Local MAC - preoperative ankle block injection of 10 mL of 0.5% marcaine plain proximal to infection Specimen's removed: Bone sent to pathology and microbiology for further evaluation. Estimated Blood Loss (mL): 50 mL Description of Procedure: Indications: This patient is a 71 year old diabetic female, with a history of diabetic foot infections and noncompliance. Patient had previously undergone a right 3rd toe amputation by Dr. Espino and a Partial 5th ray resection by Dr. Magana in the past. Recently she has been following up with Dr. Magana in clinic. On SaturdayJune 11, the patient presented to Dr. Magana's clinic complaining of a red and swollen right foot with a plantar foot ulcer sub 3rd metatarsal head. She said she first started to notice the ulcer and the redness starting two days prior. She denies any trauma to the area and is unsure exactly what caused it. Dr. Magana noted the plantar ulcer probing to the dorsal aspect of the foot as well as the 3rd metatarsal head. After taking right foot x-rays and wound cultures, she had the patient directly admitted to the hospital, at which time I was consulted. The patient's white blood count on admission was 12.8. ESR was 75. Glucose was 479. Hemoglobin A1c was 9.1. CRP was 145. MRSA PCR was negative. MRI of the right foot was obtained that showed, among other things, suspected osteomyelitis of the third metatarsal head as well as soft tissue abscess formation distal to the third metatarsal. Over the next day, the foot slowly began to worsen in clinical appearance. Patient was evaluated bedside earlier this morning and slight purulence was appreciated on probing of the plantar ulcer sub-third metatarsal head. On the dorsal foot, there was an increasing bulla formation that had grown over the last day. It was at this time that a bedside I AND D was performed using a stab incision directly overlying the bulla. Moderate amount of purulent drainage was expressed. The area was flushed with normal sterile saline and a dry sterile dressing was applied. Patient's case was discussed with Dr. Willson and he agreed with the plan to take the patient to surgery this afternoon if possible. At this time, all of the possible options were discussed with the patient in great detail. It was recommended at this time to the patient, that we proceed forward with a surgical debridement of all infected, nonviable, necrotic soft tissue from the ulcer site with an incision and drainage of the abscess, and resection of the third metatarsal head. This procedure was discussed with the patient in great detail and to her understanding. She agreed to proceed with the operation at this time. All of the risks and potential complications were reviewed with the patient. She understands the importance of proper compliance following this procedure to optimize the potential for healing, but no guarantees were given. She is advised that the complications and risks include, but are not limited to further infection, need for further surgery, recurrence, transfer lesions, deformity, weakness, loss of strength, loss of function, further ulceration, nonhealing, delayed healing, blood clots, chronic swelling, arthritis, Charcot foot/ankle, nerve damage, inability to walk, inability to wear shoes, severe pain, complex regional pain syndrome, need for a below the knee amputation, loss of complete limb, or loss of life. The alternative options were discussed with the patient. All of her questions were answered to her satisfaction. We agreed to proceed forward with the above planned procedure. The consent form was reviewed with the patient and was freely signed. Again, no guarantees were given. Just prior to the procedure, I met with the patient's , [id number], and grandson and with the patient's permission I explained again the planned procedure in great detail. I also reviewed all the risks benefits and potential outcomes and complications as noted above. All of the family's questions were answered to their satisfaction prior to surgery. Description of the procedure: The patient was brought back to the operating room placed on the table in the supine position. The patient was already on IV antibiotics per hospitalist. The patient received MAC anesthesia per the anesthesiologist. A local ankle block was then performed consisting of 10 mL of 0.5% Marcaine plain. A tourniquet was then placed about the patient's right ankle, however this was not inflated during surgery. Hemostasis was controlled using anatomic dissection. The right foot and ankle was then scrubbed prepped and draped in the usual aseptic manner. A timeout was performed and the patient was properly identified and the surgical plan was confirmed. At this time, attention was directed to the dorsal aspect of the right foot. Using a #15 scalpel blade, an approximately 3 cm linear longitudinal incision was made directly overlying the third metatarsal head. Dissection was carefully carried down using combination of sharp and blunt dissection making sure to avoid any vital neurovascular structures. The neurovascular structures were identified, protected, and retracted throughout the entire procedure. The dissection was carried down to the third metatarsal head and this was confirmed with fluoroscopy. Once the metatarsal neck was exposed, a sagittal saw was used to resect the third metatarsal head at the surgical neck. The third metatarsal head was then carefully dissected and freed of any soft tissue attachments and passed from the operative table in toto. The metatarsal head was then sent to microbiology for aerobic, anaerobic, acid-fast, and fungal evaluation as well as pathology for further evaluation. Next attention was directed to the plantar aspect of the foot where the approximately 1 cm x 1 cm ulcer was noted. The ulcer was carefully debrided using a #15 blade to resect hyperkeratotic rim, as well as any visible necrotic, nonviable, and infected soft tissue. Post debridement the ulcer measured approximately 1.3 cm x 1.3 cm and connected with the dorsal incision. Any visible necrotic, nonviable, and infected soft tissue dorsally was also carefully debrided and removed from the operative site on the dorsal foot. Upon completion, healthy looking bleeding tissue was appreciated. The operative site was then flushed with copious amounts of normal sterile saline. Quarter-inch iodoform gauze packing was then packed from the dorsal surgical site and out through the plantar surgical site. Next, 4 x 4's, ABD pad, Kerlix, and an Arjun bandage were applied. The patient tolerated the procedure and anesthesia well with no complications. Postoperative orders were then placed. Postop instructions were reviewed with the patient as well as the patient's and [id number]. Patient was instructed to remain nonweightbearing to the right foot at all times. She will be readmitted to the floor. She was transferred to PACU with vital signs stable and vascular status intact to the right foot. Capillary fill time was brisk to all remaining digits of the right foot upon completion of procedure. No complications took place during this procedure. This patient will continue to be followed as an inpatient. 06/17/17 1324 <Electronically signed by Stevenson Padgett DPM> Date Stevenson Padgett DPM CC: MRIANDA Padgett; Con Johnson MD; Ivanna Magana DPM; Adam Webb MD Signed BEDSIDE GLUCOSE Collected: 06/17/2017 Status: F Source: [place] 11:58 AM [facility] REPOSITORY TYPE CODE TESTS RESULT OUT OF REFERENCE UNITS RANGE LAB L501.080 70-110 mg/dL High BEDSIDE GLU 174 Result Comment: MANAGEMENT OF PATIENT CARE PER NURSING PROTOCOL Performed By: #### L501.080 #### [facility] Point of Care [address] [place] [address] BEDSIDE GLUCOSE Collected: 06/17/2017 Status: F Source: [place] 8:26 AM [facility] REPOSITORY TYPE CODE TESTS RESULT OUT OF REFERENCE UNITS RANGE LAB L501.080 70-110 mg/dL High BEDSIDE GLU 123 Result Comment: MANAGEMENT OF PATIENT CARE PER NURSING PROTOCOL Performed By: #### L501.080 #### [facility] Point of Care [address] [place] [address] Observed: 06/17/2017 Status: F Source: [place] CDIFF (MOLECULAR) 6:30 AM [facility] REPOSITORY Cdiff-Molecular Normal Reference Range = Negative C. Diff DNA Negative- No toxigenic C. Diff DNA Detected NAAT METHOD Testing was performed using nucleic acid amplification Performed By: #### [id number] #### [facility] [address] [place], [address] BEDSIDE GLUCOSE Collected: 06/16/2017 Status: F Source: [place] 10:19 PM [facility] REPOSITORY TYPE CODE TESTS RESULT OUT OF REFERENCE UNITS RANGE LAB L501.080 70-110 mg/dL High BEDSIDE GLU 184 Result Comment: Insulin Given MANAGEMENT OF PATIENT CARE PER NURSING PROTOCOL Performed By: #### L501.080 #### [facility] Point of Care [address] [place] [address] BEDSIDE GLUCOSE Collected: 06/16/2017 Status: F Source: [place] 8:36 PM [facility] REPOSITORY TYPE CODE TESTS RESULT OUT OF REFERENCE UNITS RANGE LAB L501.080 70-110 mg/dL High BEDSIDE GLU 234 Result Comment: MANAGEMENT OF PATIENT CARE PER NURSING PROTOCOL Performed By: #### L501.080 #### [facility] Point of Care [address] [place] [address] BEDSIDE GLUCOSE Collected: 06/16/2017 Status: F Source: [place] 4:42 PM [facility] REPOSITORY TYPE CODE TESTS RESULT OUT OF REFERENCE UNITS RANGE LAB L501.080 70-110 mg/dL High BEDSIDE GLU 228 Result Comment: MANAGEMENT OF PATIENT CARE PER NURSING PROTOCOL Performed By: #### L501.080 #### [facility] Point of Care [address] [place] [address] BEDSIDE GLUCOSE Collected: 06/16/2017 Status: F Source: [place] 12:08 PM [facility] REPOSITORY TYPE CODE TESTS RESULT OUT OF REFERENCE UNITS RANGE LAB L501.080 70-110 mg/dL High BEDSIDE GLU 271 Result Comment: MANAGEMENT OF PATIENT CARE PER NURSING PROTOCOL Performed By: #### L501.080 #### [facility] Point of Care [address] [place] [address] BEDSIDE GLUCOSE Collected: 06/16/2017 Status: F Source: [place] 9:14 AM [facility] REPOSITORY TYPE CODE TESTS RESULT OUT OF REFERENCE UNITS RANGE LAB L501.080 70-110 mg/dL High BEDSIDE GLU 156 Result Comment: MANAGEMENT OF PATIENT CARE PER NURSING PROTOCOL Performed By: #### L501.080 #### [facility] Point of Care [address] [place] [address] BEDSIDE GLUCOSE Collected: 2017 Status: F Source: [place] 10:26 PM [facility] REPOSITORY TYPE CODE TESTS RESULT OUT OF REFERENCE UNITS RANGE LAB L501.080 70-110 mg/dL High BEDSIDE GLU 162 Result Comment: Insulin Given MANAGEMENT OF PATIENT CARE PER NURSING PROTOCOL Performed By: #### L501.080 #### [facility] Point of Care [address] [place] [address] BEDSIDE GLUCOSE Collected: 2017 Status: F Source: [place] 4:53 PM [facility] REPOSITORY TYPE CODE TESTS RESULT OUT OF REFERENCE UNITS RANGE LAB L501.080 70-110 mg/dL High BEDSIDE GLU 266 Result Comment: MANAGEMENT OF PATIENT CARE PER NURSING PROTOCOL Performed By: #### L501.080 #### [facility] Point of Care [address] [place] [address] BEDSIDE GLUCOSE Collected: 2017 Status: F Source: [place] 11:18 AM [facility] REPOSITORY TYPE CODE TESTS RESULT OUT OF REFERENCE UNITS RANGE LAB L501.080 70-110 mg/dL High BEDSIDE GLU 334 Result Comment: MANAGEMENT OF PATIENT CARE PER NURSING PROTOCOL Performed By: #### L501.080 #### [place] [facility] Point of Care [address] [place] [address] BEDSIDE GLUCOSE Collected: 2017 Status: F Source: [place] 7:48 AM [facility] REPOSITORY TYPE CODE TESTS RESULT OUT OF REFERENCE UNITS RANGE LAB L501.080 70-110 mg/dL High BEDSIDE GLU 124 Result Comment: MANAGEMENT OF PATIENT CARE PER NURSING PROTOCOL Performed By: #### L501.080 #### [place] [facility] Point of Care [address] [place] [address] BASIC METABOLIC Collected: 2017 Status: F Source: [place] PROFILE (BMP) 5:20 AM [facility] REPOSITORY Order Comment: NAME UNREADABLE TYPE CODE TESTS RESULT OUT OF RANGE REFERENCE UNITS LAB L501.0100 70-110 mg/dL Normal GLU 104 LAB L501.1000 7-18 mg/dL High BUN 19 LAB L501.1100 0.55-1.02 mg/dL High 1.36 CREAT,SERUM Result Comment: The validity of the calculated GFR AND GFRAA in patients over 70 years has not been determined. Clinical correlation is essential. LAB L501.1110 >60 mL/min Low EST GFR 41 Result Comment: Non- GFR Calc LAB L501.1115 >60 mL/min Low EST GFR - AA 49 Result Comment: GFR Calc LAB L501.1255 ml/min Normal Estimated CRCL 31.84 LAB L501.1300 10-20 RATIO Normal BUN/CRE 14.0 LAB L501.2200 8.5-10 mg/dL Normal .1 CA 8.5 LAB L501.5300 136-14 mmol/L Normal 5 NA 144 LAB L501.5600 3.5-5. mmol/L Normal 1 K 4.2 LAB L501.5900 98-107 mmol/L High CL 112 LAB L501.6100 21.0-3 mmol/L Normal 2.0 CO2 23.0 LAB L501.6200 5-15 Normal GAP 9 Performed By: #### L500.2500 #### [facility] [address] [place], [address] BEDSIDE GLUCOSE Collected: 06/14/2017 Status: F Source: [place] 10:07 PM [facility] REPOSITORY TYPE CODE TESTS RESULT OUT OF REFERENCE UNITS RANGE LAB L501.080 70-110 mg/dL High BEDSIDE GLU 235 Result Comment: MANAGEMENT OF PATIENT CARE PER NURSING PROTOCOL Performed By: #### L501.080 #### [facility] Point of Care [address] [place] [address] BEDSIDE GLUCOSE Collected: 06/14/2017 Status: F Source: [place] 6:01 PM [facility] REPOSITORY TYPE CODE TESTS RESULT OUT OF RANGE REFERENCE UNITS LAB L501.080 70-110 mg/dL Normal BEDSIDE GLU 94 Result Comment: MANAGEMENT OF PATIENT CARE PER NURSING PROTOCOL Performed By: #### L501.080 #### [facility] Point of Care [address] [place] [address] BEDSIDE GLUCOSE Collected: 06/14/2017 Status: F Source: [place] 11:41 AM [facility] REPOSITORY TYPE CODE TESTS RESULT OUT OF REFERENCE UNITS RANGE LAB L501.080 70-110 mg/dL High BEDSIDE GLU 122 Result Comment: MANAGEMENT OF PATIENT CARE PER NURSING PROTOCOL Performed By: #### L501.080 #### [facility] Point of Care [address] [place] [address] BEDSIDE GLUCOSE Collected: 06/14/2017 Status: F Source: [place] 7:45 AM [facility] REPOSITORY TYPE CODE TESTS RESULT OUT OF REFERENCE UNITS RANGE LAB L501.080 70-110 mg/dL High BEDSIDE GLU 218 Result Comment: MANAGEMENT OF PATIENT CARE PER NURSING PROTOCOL Performed By: #### L501.080 #### [facility] Point of Care [address] [place] [address] CBC W/DIFF, AUTOMATED Collected: 06/14/2017 Status: F Source: [place] 5:50 AM [facility] REPOSITORY Order Comment: SPECIMEN OBTAINED FROM LINE DRAW TYPE CODE TESTS RESULT OUT OF RANGE REFERENCE UNITS LAB L100.1000 4.4-11.0 K/mm3 Normal WBC 6.7 LAB L100.1200 4.2-5.4 M/mm3 Low RBC 3.83 LAB L100.1300 12.0-15.0 g/dl Low HGB 10.1 LAB L100.1400 37-47 % Low HCT 32.2 LAB L100.1500 81-99 fL Normal MCV 84.1 LAB L100.1600 27.0-32.0 pg Low MCH 26.4 LAB L100.1700 32-36 g/gl Low MCHC 31.4 LAB L100.1810 11.6-14.6 % High RDW CV 15.6 LAB L100.1820 35.1-43.9 fl High RDW SD 46.8 LAB L100.1900 150-450 K/mm3 Normal PLT 241 LAB L100.2000 6.2-12.0 fl Normal MPV 9.7 LAB L100.2100 47-70 % Normal NEUT% 57.9 LAB L100.2200 19-41 % Normal LY% 27.1 LAB L100.2300 0-10 % Normal MONO% 9.1 LAB L100.2400 0-5 % High EO% 5.5 LAB L100.2500 0-1 % Normal BASO% 0.3 LAB L100.2550 0.0-0.9 % Normal IM GRAN % 0.100 Result Comment: IG% - Immature Granulocytes (promyelocytes, myelocytes and metamyelocytes) > 1% indicates that a LEFT SHIFT is Present. LAB L100.2620 2.0-7.7 X10 3/uL Normal Absolute Neut 3.9 LAB L100.2720 0.83-4.51 X10 3/ul Normal Absolute Lymph 1.82 Performed By: #### L100.0100 #### [facility] [place], [address] BASIC METABOLIC Collected: 06/14/2017 Status: F Source: [place] PROFILE (BMP) 5:50 AM [facility] REPOSITORY Order Comment: SPECIMEN OBTAINED FROM LINE DRAW TYPE CODE TESTS RESULT OUT OF RANGE REFERENCE UNITS LAB L501.0100 70-110 mg/dL High GLU 213 Result Comment: Glucose result greater than or equal to 200 mg/dL suggests DIABETES MELLITUS per A.D.A. criteria. LAB L501.1000 7-18 mg/dL High BUN 20 LAB L501.1100 0.55-1.02 mg/dL High CREAT,SERUM 1.34 Result Comment: The validity of the calculated GFR AND GFRAA in patients over 70 years has not been determined. Clinical correlation is essential. LAB L501.1110 >60 mL/min Low EST GFR 42 Result Comment: Non- GFR Calc LAB L501.1115 >60 mL/min Low EST GFR - AA 50 Result Comment: GFR Calc LAB L501.1255 ml/min Normal Estimated CRCL 32.78 LAB L501.1300 10-20 RATIO Normal BUN/CRE 14.9 LAB L501.2200 8.5-10 mg/dL Low .1 CA 8.3 LAB L501.5300 136-14 mmol/L Normal 5 NA 141 LAB L501.5600 3.5-5. mmol/L Normal 1 K 4.2 LAB L501.5900 98-107 mmol/L High CL 110 LAB L501.6100 21.0-3 mmol/L Normal 2.0 CO2 22.0 LAB L501.6200 5-15 Normal GAP 9 Performed By: #### L500.2500 #### [facility] [address] [place], [address] BEDSIDE GLUCOSE Collected: 06/13/2017 Status: F Source: [place] 9:43 PM [facility] REPOSITORY TYPE CODE TESTS RESULT OUT OF REFERENCE UNITS RANGE LAB L501.080 70-110 mg/dL High BEDSIDE GLU 243 Result Comment: MANAGEMENT OF PATIENT CARE PER NURSING PROTOCOL Performed By: #### L501.080 #### [facility] Point of Care [address] [place] [address] FOOT MIN 3 VIEWS Observed: 06/13/2017 Status: F Source: [place] 6:11 PM [facility] REPOSITORY [facility] Imaging Services [address] [place] [address] Foot min 3 Views MR#: [id number] Acct: [id number] Name: LISA SEAY Rep #: [id number] : 1945 F 71 From: Sukumar Gomez MD PCP: Con Johnson MD Status: ADM IN Study: Foot min 3 Views Date of Exam: 06/13/17 Exam# [id number] Ordering Dr: Stevenson Padgett DPM STUDY: X-RAY - RIGHT FOOT CLINICAL: Female, 71 years old. Status post toe amputation TECHNIQUE: 3 view(s) of the foot. COMPARISON: None. FINDINGS: There is a small plantar calcaneus. There is enthesopathic change at the calcaneal tendon insertion. The talus is normal. The carpal bones are normal. Normal visualized subtalar, talonavicular, calcaneocuboid, tarsal and tarsometatarsal articulations. There is postoperative change from transmetatarsal amputation of the third digit. Old healed transmetatarsal amputation defect noted at the fifth digit. Old healed fracture deformity of the neck of the second metatarsal. Mild nonuniform joint space narrowing with spur formation involving the first metatarsophalangeal joint. Normal tibial and fibular sesamoid bones. Degenerative change of the interphalangeal joint of the great toe.. Normal phalanges of the great toe. Normal second through fifth metatarsophalangeal joints. Normal interphalangeal joints and phalanges of the lesser toes. There is subcutaneous gas and soft tissue swelling at the third digit amputation site. RAD/Foot min 3 Views IMPRESSION: 1. Postoperative change from third digit transmetatarsal amputation 2. Mild to moderate first metatarsophalangeal joint and interphalangeal joint osteoarthritic change. Electronically Signed: Sukumar Gomez MD at 2:59 EST Tel , Service support , CC: MIRANDA Padgett; Con Johnson MD [employer] Specialist: Signed BEDSIDE GLUCOSE Collected: 06/13/2017 Status: F Source: [place] 6:07 PM [facility] REPOSITORY TYPE CODE TESTS RESULT OUT OF RANGE REFERENCE UNITS LAB L501.080 70-110 mg/dL Normal BEDSIDE GLU 100 Result Comment: MANAGEMENT OF PATIENT CARE PER NURSING PROTOCOL Performed By: #### L501.080 #### [facility] Point of Care [address] [place] [address] BEDSIDE GLUCOSE Collected: 06/13/2017 Status: F Source: [place] 3:21 PM [facility] REPOSITORY TYPE CODE TESTS RESULT OUT OF RANGE REFERENCE UNITS LAB L501.080 70-110 mg/dL Normal BEDSIDE GLU 84 Result Comment: MANAGEMENT OF PATIENT CARE PER NURSING PROTOCOL Performed By: #### L501.080 #### [facility] Point of Care [address] [place] [address] BEDSIDE GLUCOSE Collected: 06/13/2017 Status: F Source: [place] 2:58 PM [facility] REPOSITORY TYPE CODE TESTS RESULT OUT OF RANGE REFERENCE UNITS LAB L501.080 70-110 mg/dL Normal BEDSIDE GLU 73 Result Comment: MANAGEMENT OF PATIENT CARE PER NURSING PROTOCOL Performed By: #### L501.080 #### [facility] Point of Care [address] [place] [address] BEDSIDE GLUCOSE Collected: 06/13/2017 Status: F Source: [place] 1:20 PM [facility] REPOSITORY TYPE CODE TESTS RESULT OUT OF RANGE REFERENCE UNITS LAB L501.080 70-110 mg/dL Normal BEDSIDE GLU 93 Result Comment: MANAGEMENT OF PATIENT CARE PER NURSING PROTOCOL Performed By: #### L501.080 #### [facility] Point of Care [address] [place] [address] BEDSIDE GLUCOSE Collected: 06/13/2017 Status: F Source: [place] 12:55 PM [facility] REPOSITORY TYPE CODE TESTS RESULT OUT OF REFERENCE UNITS RANGE LAB L501.080 70-110 mg/dL Low BEDSIDE GLU 51 Result Comment: MANAGEMENT OF PATIENT CARE PER NURSING PROTOCOL Performed By: #### L501.080 #### [facility] Point of Care [address] [place] [address] BEDSIDE GLUCOSE Collected: 06/13/2017 Status: F Source: [place] 11:56 AM [facility] REPOSITORY TYPE CODE TESTS RESULT OUT OF RANGE REFERENCE UNITS LAB L501.080 70-110 mg/dL Normal BEDSIDE GLU 99 Result Comment: MANAGEMENT OF PATIENT CARE PER NURSING PROTOCOL Performed By: #### L501.080 #### [facility] Point of Care [address] [place], [place] [address] BEDSIDE GLUCOSE Collected: 06/13/2017 Status: F Source: [place] 11:30 AM [facility] REPOSITORY TYPE CODE TESTS RESULT OUT OF REFERENCE UNITS RANGE LAB L501.080 70-110 mg/dL Low BEDSIDE GLU 67 Result Comment: MANAGEMENT OF PATIENT CARE PER NURSING PROTOCOL Performed By: #### L501.080 #### [place] [facility] Point of Care [address] [place] [address] ULCER Observed: 06/13/2017 Status: F Source: [place] 11:30 AM [facility] REPOSITORY Patient: LISA SEAY : 1945 (72/F) Acct Num: [id number] Phys: David MACHUCACon Unit Num: [id number] Loc: MS2 [id number] Specimen: [id number] Received: 06/14/17848 Spec Type: ULCER TISSUES TISSUES: Foot, NOS GROSS DESCRIPTION Received in fixative is one container labeled with the patient's name and designated third metatarsal right foot. The specimen consists of an irregular fragment of bolden bone measuring 1.8 x 1.5 x 1.2 cm. The specimen is sectioned and totally submitted in two cassettes after decalcification. / AM:debbi 06/14/17 TC:2 CPT: 03029, 70083 HEADER OPERATION: I AND D foot / excision metatarsal head, third PRE-OP DIAGNOSIS: Ulceration with cellulitis, osteomyelitis, third metatarsal head right foot with ulceration TISSUE SUBMITTED: Third metatarsal, right foot MICROSCOPIC DESCRIPTION Slides are reviewed. MICROSCOPIC DIAGNOSIS Third metatarsal right foot, excision: Acute osteomyelitis. SJ:debbi 06/19/17 Signed Shadi Noble 06/19/17 <signature on file> Performed By: #### PUL #### [facility] [address] [place], [address] CONSULTATION Observed: 06/13/2017 Status: F Source: [place] 10:40 AM [facility] REPOSITORY [facility] Medical Records Department [address] [place] [address] Consultation 06/13/17 1035 MR#: [id number] Acct: [id number] Name: LISA SEAY Rep #: [id number] : 1945 71 From: Adam Webb MD PCP: Con Johnson MD Status: ADM IN Y Location: [facility] [id number] Problem List (1) Osteomyelitis of right foot Status: Resolved Reason for Consult: Dr. Willson Consulted by: osteo History of Present Illness: The patient is a 71 year old F with CAD, DM with neuropathy, cdiff, and R foot osteo presenting with R foot redness, swelling, and purulent discharge since 06/10. No known inciting events. Developed fever and chills. No recent abx. Minimal feeling in foot, so had no pain. In ED, fever to 101.8, hr over 110. MRI showed R foot osteo and abscess. Started on vanc/zosyn. Fever better, OR planned for today. Some nausea. No diarrhea. Full ROS performed and neg except as noted above. - Medical History Past Medical History (Chronic Problems): Chronic Problems (Last Updated 06/07/17 @ 16:07 by Madison Alicea) Stented coronary artery (Chronic) PTCA and YASIR to proximal and distal CX per Dr. Hatfield 12/21/2014; History of left heart catheterization (Chronic) CABG X 3 vessels [facility]:DANIEL to LAD, reverse SVG to dx and to 2nd OM per Dr. Borjas @ [facility] 09/09/2014; PTCA andDES to proximal and distal CX per Dr. Hatfield 12/21/2014; History of coronary artery bypass graft (Chronic) CABG X 3 vessels [facility]:DANIEL to LAD, reverse SVG to dx and to 2nd OM per Dr. Borjas @ [facility] 09/09/2014 Atherosclerotic heart disease of false pass coronary artery without angina pectoris (Chronic) CABG X 3 vessels [facility]:DANIEL to LAD, reverse SVG to dx and to 2nd OM per Dr. Borjas @ [facility] 09/09/2014; PTCA and YASIR to proximal and [...] (Chronic) Vitamin D deficiency (Chronic) Insomnia (Chronic) Allergies/Adverse Reactions: Allergies Penicillins Allergy (Severe, Verified [...] mg PO DAILY@0800 03/10/17 Blood-Glucose Meter [Accu-Chek 1 each MC BID 03/10/17 - Social History Tobacco Use: non-smoker Vital Signs Temp Pulse Resp BP Pulse Ox 98.6 F 80 18 149/60 H 100 06/13/17 08:12 06/13/17 08:16 06/13/17 08:12 06/13/17 08:12 06/13/17 08:12 Oxygen Delivery Method Room Air Weight: 84.2 kg Body Mass Index (BMI) 32.8 Finger Stick Blood Glucose 193 Microbiology Past 72 Hours 06/11/17 14:00 Gram Stain - Final Wound Abcess - Aerobic AND Anaerobic Swabs Wound Culture - Preliminary Laboratory Tests Past 24 Hrs WBC 6.3 RBC 3.86 L Hgb 10.0 L Hct 32.2 L MCV 83.4 MCH 25.9 L MCHC 31.1 L RDW 15.8 H - Other Studies Radiology: []reviewed Other Studies: [] Route of nutrition/ use of supplements: [] Nutritional Intake: [] IV Site: [] Maloney Catheter: [] - Physical Exam General: Alert, Oriented x3, Cooperative, No apparent distress HEENT: Atraumatic, PERRLA, EOMI Neck: Supple, No Nodes Lungs: Clear to auscultation, Normal air movement Cardiovascular: Regular rate, Regular Rhythm, No murmurs Abdomen: Bowel Sounds Present, Soft, Non Tender, Non-Distended Extremities: Edema Skin: - - Reviewed photo of R foot IV Site: Peripheral, without redness Musculoskeletal: No Tenderness to Palpation of Joints or Extremities Neurological: Cranial nerves II-XII grossly intact, - - peripheral neuropathy - Assessment/Plan Antibiotics: [] Assessment/Plan: [] Active and Suspected Problems (Last Updated 06/07/17 @ 16:07 by Madison Alicea) Ulcer at the right metatarsal head (Acute) R foot osteo with abscess due to DM with peripheral neuropathy - needs surgical I AND D, scheduled for this afternoon. ESR elevated at 75. Cxs pending, so far showing staph and strep. Cont vanc/zosyn. h/o cdiff - monitor for diarrhea Thank you, will follow. 06/13/17 1040 <Electronically signed by Adam Webb MD> Date Adam Webb MD Cosigner Signature (if applicable): Date CC: Con Johnson MD; Ivanna Magana DPM; Adam Webb MD Signed BASIC METABOLIC Collected: 06/13/2017 Status: F Source: [place] PROFILE (BMP) 9:35 AM [facility] REPOSITORY Order Comment: Comments: for surgery TYPE CODE TESTS RESULT OUT OF RANGE REFERENCE UNITS LAB L501.0100 70-110 mg/dL High GLU 163 Result Comment: Fasting Glucose result greater than or equal to 126 mg/dL suggests DIABETES MELLITUS per A.D.A. criteria. LAB L501.1000 7-18 mg/dL High BUN 25 LAB L501.1100 0.55-1.02 mg/dL High CREAT,SERUM 1.31 Result Comment: The validity of the calculated GFR AND GFRAA in patients over 70 years has not been determined. Clinical correlation is essential. LAB L501.1110 >60 mL/min Low EST GFR 43 Result Comment: Non- GFR Calc LAB L501.1115 >60 mL/min Low EST GFR - AA 52 Result Comment: GFR Calc LAB L501.1255 ml/min Normal Estimated CRCL 33.53 LAB L501.1300 10-20 RATIO Normal BUN/CRE 19.1 LAB L501.2200 8.5-10 mg/dL Low .1 CA 7.9 LAB L501.5300 136-14 mmol/L Normal 5 NA 141 LAB L501.5600 3.5-5. mmol/L Normal 1 K 3.9 LAB L501.5900 98-107 mmol/L High CL 110 LAB L501.6100 21.0-3 mmol/L Normal 2.0 CO2 24.0 LAB L501.6200 5-15 Normal GAP 7 Performed By: #### L500.2500 #### [facility] [address] [place], [address] FOOT 2 VIEWS Observed: 06/13/2017 Status: F Source: [place] 8:56 AM [facility] REPOSITORY [facility] Imaging Services [address] [place] [address] Foot 2 Views MR#: [id number] Acct: [id number] Name: LISA SEAY Rep #: [id number] : 1945 F 71 From: Richard Vega DO PCP: Con Johnson MD Status: ADM IN Study: Foot 2 Views Date of Exam: 06/13/17 Exam# [id number] Ordering Dr: Stevenson Padgett DPM STUDY: X-RAY - RIGHT FOOT CLINICAL: Female, 71 years old. I and D , excision metatarsal head D TECHNIQUE: Single intraoperative view of the foot. COMPARISON: None. FINDINGS: Partial amputation of the third and fifth metatarsi. Normal metatarsophalangeal joint of the great toe. Normal tibial and fibular sesamoid bones. Normal interphalangeal joint of the great toe. Normal phalanges of the great toe. Normal second through fifth metatarsophalangeal joints. Amputation of the third and fifth toes. Bony details are limited. RAD/Foot 2 Views IMPRESSION: Transmetatarsal dilatation of the third and fifth toes. Electronically Signed: Richard Vega DO at 19:02 EST Tel [phone], Service support , CC: MIRANDA Padgett; Con Johnson MD Plant Controls Specialist: Signed BEDSIDE GLUCOSE Collected: 06/13/2017 Status: F Source: [place] 8:10 AM [facility] REPOSITORY TYPE CODE TESTS RESULT OUT OF REFERENCE UNITS RANGE LAB L501.080 70-110 mg/dL High BEDSIDE GLU 153 Result Comment: MANAGEMENT OF PATIENT CARE PER NURSING PROTOCOL Performed By: #### L501.080 #### [facility] Point of Care [address] [place] [address] CBC W/DIFF, AUTOMATED Collected: 06/13/2017 Status: F Source: [place] 6:10 AM [facility] REPOSITORY Order Comment: SPECIMEN OBTAINED FROM LINE DRAW TYPE CODE TESTS RESULT OUT OF RANGE REFERENCE UNITS LAB L100.1000 4.4-11.0 K/mm3 Normal WBC 6.3 LAB L100.1200 4.2-5.4 M/mm3 Low RBC 3.86 LAB L100.1300 12.0-15.0 g/dl Low HGB 10.0 LAB L100.1400 37-47 % Low HCT 32.2 LAB L100.1500 81-99 fL Normal MCV 83.4 LAB L100.1600 27.0-32.0 pg Low MCH 25.9 LAB L100.1700 32-36 g/gl Low MCHC 31.1 LAB L100.1810 11.6-14.6 % High RDW CV 15.8 LAB L100.1820 35.1-43.9 fl High RDW SD 48.1 LAB L100.1900 150-450 K/mm3 Normal PLT 205 LAB L100.2000 6.2-12.0 fl Normal MPV 9.6 LAB L100.2100 47-70 % Normal NEUT% 58.1 LAB L100.2200 19-41 % Normal LY% 26.5 LAB L100.2300 0-10 % High MONO% 10.3 LAB L100.2400 0-5 % Normal EO% 4.7 LAB L100.2500 0-1 % Normal BASO% 0.2 LAB L100.2550 0.0-0.9 % Normal IM GRAN % 0.200 Result Comment: IG% - Immature Granulocytes (promyelocytes, myelocytes and metamyelocytes) > 1% indicates that a LEFT SHIFT is Present. LAB L100.2620 2.0-7.7 X10 3/uL Normal Absolute Neut 3.7 LAB L100.2720 0.83-4.51 X10 3/ul Normal Absolute Lymph 1.68 Performed By: #### L100.0100 #### [facility] [address] [place], [address] Observed: 06/13/2017 Status: F Source: [place] CULTURE, DEEP WOUND 12:00 AM [facility] REPOSITORY Order Date: 12/26/16 Comments: THIRD METATARSAL, RIGHT FOOT Gram Stain Gram Stain No White Blood Cells No organisms seen Wound Culture ORGANISM 1: Staphylococcus aureus Amount Growth Very Rare Staphylococcus aureus: REACTION Benzylpenicillin NF >=0.5 R Cefoxitin *NF - Clindamycin $$ <=0.25 S Inducable Clindamycin Resistan - Erythromycin $ >=8 R Gentamicin $ <=0.5 S Levofloxacin $ <=0.12 S Linezolid $$$$ 2 S Moxifloxicin *NF <=0.25 S Oxacillin NF <=0.25 S Tigecycline $$$$ <=0.12 S Rifampin $$ <=0.5 S Tetracycline NF <=1 S Trimethoprim/Sulfametho $ <=10 S Vancomycin $ 1 S (NF) indicates non-formulary drug at [facility]. Approval by Infectious Disease Specialist required before non-formulary drugs may be ordered and/or dispensed. * CLSI guidelines does not recommend testing of cephalosporins. This interpretation is deduced from Beta-lactam/penicillin results. Cult, Anaerobic No growth in 5 days. Performed By: #### M100.1500 #### [facility] [address] [place], [place], [address] BEDSIDE GLUCOSE Collected: 06/12/2017 Status: F Source: [place] 10:28 PM [facility] REPOSITORY TYPE CODE TESTS RESULT OUT OF REFERENCE UNITS RANGE LAB L501.080 70-110 mg/dL High BEDSIDE GLU 145 Result Comment: MANAGEMENT OF PATIENT CARE PER NURSING PROTOCOL Performed By: #### L501.080 #### [facility] Point of Care [address] [facility] [place], [place] [address] BEDSIDE GLUCOSE Collected: 06/12/2017 Status: F Source: [place] 4:38 PM [facility] [place] REPOSITORY TYPE CODE TESTS RESULT OUT OF REFERENCE UNITS RANGE LAB L501.080 70-110 mg/dL High BEDSIDE GLU 158 Result Comment: MANAGEMENT OF PATIENT CARE PER NURSING PROTOCOL Performed By: #### L501.080 #### [facility] Point of Care [address] [place] [address] HISTORY AND PHYSICAL Observed: 06/12/2017 Status: F Source: [place] EXAM 3:26 PM [facility] REPOSITORY [facility] Medical Records Department [address] [place] [address] History and Physical 06/11/17 1357 MR#: [id number] Acct: [id number] Name: LISA SEAY Rep #: [id number] : 1945 71 From: Ovi Willson MD PCP: Con Johnson MD Status: ADM IN Y Location: [place] [id number] Problem List (1) C. difficile colitis Status: Resolved (2) Dehydration Status: Resolved (3) Hyponatremia Status: Resolved (4) Xerosis of skin Status: Chronic (5) Atherosclerotic heart disease of false pass coronary artery without angina pectoris Status: Chronic Comment: CABG X 3 vessels [facility]:DANIEL to LAD, reverse SVG to dx and to 2nd OM per Dr. Borjas @ [facility] 09/09/2014; PTCA and YASIR to proximal and distal CX per Dr. Hatfield 12/21/2014; (6) Carotid artery disease Status: Chronic Qualifiers: (7) Chronic pain Status: Chronic Qualifiers: (8) Coronary artery disease Status: Chronic Qualifiers: (9) Diabetes mellitus Status: Chronic (10) Diabetes mellitus type II Status: Chronic (11) Diabetes mellitus with polyneuropathy Status: Chronic Qualifiers: (12) Fatty liver Status: Chronic (13) GERD (gastroesophageal reflux disease) Status: Chronic Qualifiers: (14) History of coronary artery bypass graft Status: Chronic Comment: CABG X 3 vessels [facility]:DANIEL to LAD, reverse SVG to dx and to 2nd OM per Dr. Borjas @ [facility] 09/09/2014 (15) History of left heart catheterization Status: Chronic Comment: CABG X 3 vessels [facility]:DANIEL to LAD, reverse SVG to dx and to 2nd OM per Dr. Borjas @ [facility] 09/09/2014; PTCA andDES to proximal and distal CX per Dr. Hatfield 12/21/2014; (16) History of stroke Status: Chronic (17) History of stroke Status: Chronic (18) Hyperlipidemia Status: Chronic Qualifiers: (19) Hypertension Status: Chronic Qualifiers: (20) Hypothyroidism Status: Chronic Qualifiers: (21) Insomnia Status: Chronic Qualifiers: (22) Iron deficiency anemia Status: Chronic Qualifiers: (23) Malnutrition Status: Chronic (24) Obesity Status: Chronic (25) Peripheral vascular disease Status: Chronic (26) Stented coronary artery Status: Chronic Comment: PTCA and YASIR to proximal and distal CX per Dr. 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 (29) Vitamin D deficiency Status: Chronic (30) Acute delirium Status: Resolved (31) Acute kidney injury Status: Resolved (32) Gangrene Status: Resolved (33) Gangrene of toe Status: Resolved (34) Hypotension Status: Resolved Qualifiers: (35) Osteomyelitis of right foot Status: Resolved (36) Ulcer at the right metatarsal head Status: Acute History of Present Illness Date of Admission: 06/11/17 Chief Complaint: Ulcer at the right metatarsal head The patient is a 71 year old F multiple comorbidities including complicated diabetes mellitus type 2 with neuropathy, coronary artery disease status post three-vessel CABG, osteomyelitis of right little toe status post toe amputation and multiple others as listed above is being admitted directly from Dr. Magana clinic for ulcer at the plantar aspect of right metatarsal head with right foot cellulitis. Patient further added that she has not been feeling well for last 1 week, nausea, loss of appetite but denies any subjective fever or chills. I think patient had wound culture drawn in clinic. [] Patient has history of multiple recurrent admission with last 20 in February 2017 for C. difficile colitis with acute renal failure. Past Medical History Past Medical History (Chronic Problems): Chronic Problems (Last Updated 06/07/17 @ 16:07 by Madison Alicea) Stented coronary artery (Chronic) PTCA and YASIR to proximal and distal CX per Dr. Hatfield 12/21/2014; History of left heart catheterization (Chronic) CABG X 3 vessels [facility]:DANIEL to LAD, reverse SVG to dx and to 2nd OM per Dr. Borjas @ [facility] 09/09/2014; PTCA andDES to proximal and distal CX per Dr. Hatfield 12/21/2014; History of coronary artery bypass graft (Chronic) CABG X 3 vessels [facility]:DANIEL to LAD, reverse SVG to dx and to 2nd OM per Dr. Borjas @ [facility] 09/09/2014 Atherosclerotic heart disease of false pass coronary artery without angina pectoris (Chronic) CABG X 3 vessels [facility]:DANIEL to LAD, reverse SVG to dx and to 2nd OM per Dr. Borjas @ [facility] 09/09/2014; PTCA and YASIR to proximal and [...] mg PO DAILY@0800 03/10/17 Blood-Glucose Meter [Accu-Chek 1 each MC BID 03/10/17 Surgical History: appendectomy, coronary bypass surgery, gastric bypass, tonsillectomy, - Smoking Status: Never smoker - *Family History Paternal Family History: Family History (Last Updated 06/07/17 @ 16:11 by Madison Alicea) Mother Cancer CVA (cerebral vascular accident) Father CAD (coronary artery disease) History of coronary artery bypass graft Sister CAD (coronary artery disease) Multiple sclerosis History Items: No pertinent history Maternal Family History: Family History (Last Updated 06/07/17 @ 16:11 by Madison Alicea) Mother Cancer CVA (cerebral vascular accident) Father CAD (coronary artery disease) History of coronary artery bypass graft Sister CAD (coronary artery disease) Multiple sclerosis History Items: No pertinent history Review of Systems Constitutional: Reports: Anorexia, Weakness, Fatigue. Denies: Chills, Fever, Weight Change HEENT: Denies: Head Aches, Sinus Congestion, Sinus Drainage Cardiovascular: Denies: Chest Pain, Palpitations Respiratory: Denies: Cough, Shortness of breath at rest, Sputum production Gastrointestinal: Reports: Nausea. Denies: Abdominal Pain, Vomiting Genitourinary: Denies: Dysuria Musculoskeletal: Reports: Joint Pain, Joint swelling, Joint Tenderness, Muscle pain Skin: Denies: Rash, Wounds Neurological: Denies: Numbness, [...] Ulcer at the right metatarsal head (Acute) - Physical Exam General: Alert, Oriented x3, Cooperative HEENT: Atraumatic, PERRLA, EOMI, Normocephalic Oral: Dry Mucosa Neck: Supple, No JVD, Negative Carotid Bruits, - Lungs: Clear to auscultation, No rhonchi, No wheeze, No rales, Diminished - In bilateral lung bases Cardiovascular: Regular rate, Regular Rhythm, Normal S1, Normal S2, No murmurs, Tachycardic, - - CABG scar present Abdomen: Bowel Sounds Present, Soft, Non Tender, Non-Distended, - - Midline surgical scar present Extremities: No edema, Capillary Refill Less than 3 Seconds Skin: Ulcer/ Wound - Subcutaneous deep ulcer present over plantar aspect of third metatarsal head. S/P wound debridement in clinic, Rash Present - Erythema and tenderness present over right ankle and below. Musculoskeletal: No Tenderness to Palpation of Joints or Extremities Neurological: Cranial nerves II-XII grossly intact, Neuro grossly intact, - - Diminished sensation to touch on the right foot. Psych/Mental Status: Normal Affect, Appropriate Weight: 185 lb 11.2 oz Body Mass Index (BMI) 32.8 Finger Stick Blood Glucose 193 Assessment/Plan Active and Suspected Problems (Last Updated 06/07/17 @ 16:07 by Madison Alicea) Ulcer at the right metatarsal head (Acute) The patient is a 71 year old F multiple comorbidities including complicated diabetes mellitus type 2 with neuropathy, coronary artery disease status post three-vessel CABG, osteomyelitis of right little toe status post toe amputation and multiple others as listed above is being admitted directly from Dr. Magana clinic for ulcer at the plantar aspect of right metatarsal head with right foot cellulitis. Patient further added that she has not been feeling well for last 1 week, nausea, loss of appetite but denies any subjective fever or chills. I think patient had wound culture drawn in clinic. [] Patient has history of multiple recurrent admission with last one in February 2017 for C. difficile colitis with acute renal failure. 1. Acute/subacute ulcer over metatarsal head of right foot along with right lower leg cellulitis, history of osteomyelitis and status post right third and fifth toe amputation: Patient is directly admitted on the regular floor. Basic labs ordered including CRP, pre-albumin. Blood cultures 2, wound culture ordered. Started on IV vancomycin and Flagyl. Venous Doppler for bilateral lower legs ordered. Later on if MRSA is negative, can narrow down the antibiotic. [employer] Dr. Magana consult. Patient has history of osteomyelitis in the foot is status post toe amputation. JOSE E in right 1.08, in left 0.96 on July 2016 2. Coronary artery disease status post CABG: Stable. Continue cardiac medications. Previous chest echo in 2017 was negative for ischemia. EF estimated 65%. 3. Diabetes mellitus type 2 with complication including diabetic neuropathy and multiple foot ulcers osteomyelitis in the past. A1c ordered for tomorrow. Accu-Chek before meals and at bedtime cover with NovoLog sliding scale. On Levemir 15 units twice daily. 4. Multiple other comorbidities including hypertension, peripheral arterial disease, history of a stroke, history of C. difficile with acute kidney injury in February 2017: Stable. Home medication reconciliation done. DVT prophylaxis: On Lovenox. Code Visit Inpatient E AND M: 13745 Init Hosp L2 06/12/17 1526 <Electronically signed by Ovi Willson MD> Date Ovi Willson MD Cosigner Signature: Date (if applicable) CC: Con Johnson MD; Ovi Willson MD Signed LOWER EXT/NO JT/W/O Observed: 06/12/2017 Status: F Source: [place] 3:24 PM [facility] REPOSITORY [facility] Imaging Services [address] [place] [address] Lower Ext/No Jt/w/o MR#: [id number] Acct: [id number] Name: LISA SEAY Rep #: [id number] : 1945 F 71 From: Emory Rivero MD PCP: Con Johnson MD Status: ADM IN Study: Lower Ext/No Jt/w/o Date of Exam: 06/12/17 Exam# [id number] Ordering Dr: Ovi Willson MD STUDY: MRI RIGHT MIDFOOT REASON FOR EXAM: Female, 71 years old. Infection TECHNIQUE: Standardized fat and water weighted pulse sequences were obtained in all 3 orthogonal planes. COMPARISON: X-ray 11/19/2016 FINDINGS: There is healed fracture deformity of the second metatarsal (image 12/ coronal T2, 13/24 sagittal T1). There is resection of the fifth phalanges and distal aspect of the fifth metatarsal (image 5/ sagittal T1, 18/26 coronal T2). There is erosion at the plantar aspect of the fourth metatarsal head which may be chronic in nature (image 6/24 sagittal T1). There is resection of the third phalanges. There is osseous erosion at the third metatarsal head (image 9, 10, 11/24 sagittal T1). There is extensive induration at the dorsal and plantar soft tissues at the level of the third metatarsal with abscess formation (image 17/33 axial T2, T1, 11, 10, 9, 9/24 sagittal inversion recovery). There is edema/atrophy at the forefoot musculature (image 7, 10/33 axial T1, T2, 9, 12, 16/24 sagittal inversion recovery). There is osseous fusion at the second PIP joint (image 14/24 sagittal T1). There are degenerative changes at the first MTP and first IP joints (image 21, 20, 19/24 sagittal T1). Normal talonavicular articulation. Normal calcaneocuboid articulation. Normal navicular-cuneiform articulations. Normal intercuneiform articulations. Normal first tarsometatarsal articulation. Normal Lisfranc ligament. Normal second and third tarsometatarsal articulations. Normal cuboid fourth and cuboid fifth tarsometatarsal articulation. 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 Soft tissue abscess formation just distal to the third metatarsal Electronically Signed: Emory Rivero MD at 21:42 EST Tel , Service support , CC: Con Johnson MD; Ovi Willson MD Plant Controls Specialist: Signed BEDSIDE GLUCOSE Collected: 06/12/2017 Status: F Source: [place] 1:00 PM [facility] REPOSITORY TYPE CODE TESTS RESULT OUT OF REFERENCE UNITS RANGE LAB L501.080 70-110 mg/dL High BEDSIDE GLU 144 Result Comment: MANAGEMENT OF PATIENT CARE PER NURSING PROTOCOL Performed By: #### L501.080 #### [facility] Point of Care [address] [place], [place] [address] BEDSIDE GLUCOSE Collected: 06/12/2017 Status: F Source: [place] 8:55 AM [facility] REPOSITORY TYPE CODE TESTS RESULT OUT OF REFERENCE UNITS RANGE LAB L501.080 70-110 mg/dL High BEDSIDE GLU 131 Result Comment: MANAGEMENT OF PATIENT CARE PER NURSING PROTOCOL Performed By: #### L501.080 #### [facility] Point of Care [address] [facility] [place] [address] CBC W/DIFF, AUTOMATED Collected: 06/12/2017 Status: F Source: [place] 6:55 AM [facility] REPOSITORY TYPE CODE TESTS RESULT OUT OF [...] Lymph 1.69 Performed By: #### L100.0100 #### [facility] [address] [place], [place], [address] BASIC METABOLIC Collected: 06/12/2017 Status: F Source: [place] PROFILE (BMP) 6:55 AM [facility] REPOSITORY TYPE CODE TESTS RESULT OUT OF [...] GAP 10 Performed By: #### L500.2500 #### [facility] [address] [place], [address] HEMOGLOBIN A1C Collected: 06/12/2017 Status: F Source: [place] 6:55 AM [facility] REPOSITORY TYPE CODE TESTS RESULT OUT OF RANGE REFERENCE UNITS LAB L501.9985 4.2-6.3 % High HGB A1C 9.1 Performed By: #### L501.9985 #### [facility] [address], [address] BEDSIDE GLUCOSE Collected: 06/11/2017 Status: F Source: [place] 8:41 PM [facility] REPOSITORY TYPE CODE TESTS RESULT OUT OF REFERENCE UNITS RANGE LAB L501.080 70-110 mg/dL High BEDSIDE GLU 355 Result Comment: MANAGEMENT OF PATIENT CARE PER NURSING PROTOCOL Performed By: #### L501.080 #### [facility] Point of Care [address] [place] [address] BEDSIDE GLUCOSE Collected: 06/11/2017 Status: F Source: [place] 6:23 PM [facility] REPOSITORY TYPE CODE TESTS RESULT OUT OF REFERENCE UNITS RANGE LAB L501.080 70-110 mg/dL High alert BEDSIDE GLU > 500 Result Comment: Dr Villela Followed MANAGEMENT OF PATIENT CARE PER NURSING PROTOCOL Performed By: #### L501.080 #### [facility] Point of Care [address] [place] [address] VENOUS DUPLEX LOWER Observed: 06/11/2017 Status: F Source: [place] EXTREMITY 5:41 PM [facility] REPOSITORY [facility] Cardiovascular Services [address] [facility] [address] Venous Duplex US - Benny Extrem 06/11/17 1414 MR#: [id number] Acct: [id number] Name: LISA SEAY Rep #: [id number] : 1945 71 From: Adam Serna MD Attending Dr: Ovi Willson MD Status: ADM IN Ordering Dr: Ovi Willson MD Date: 06/11/17 Location: [facility] Sex: F C Admitted: 06/11/17 Reason For [...] Johnson MD Performed By: Barb Bustillos RVT 06/11/17 174 Date Adam Serna MD CC: Con Johnson MD; Ovi Willson MD Date Dictated: 06/11/17 1414 Date Transcribed: 06/11/[id number] Plant Controls Specialist: Signed URINALYSIS, COMPLETE Collected: 06/11/2017 Status: F Source: [place] 5:00 PM [facility] REPOSITORY Order Comment: How was Urine Obtained? [...] URINE SEEN Performed By: #### L400.0001 #### [facility] [address], [place], [id number] BEDSIDE GLUCOSE Collected: 06/11/2017 Status: F Source: [place] 4:24 PM [facility] REPOSITORY TYPE CODE TESTS RESULT OUT OF REFERENCE UNITS RANGE LAB L501.080 70-110 mg/dL High BEDSIDE GLU 439 Result Comment: MANAGEMENT OF PATIENT CARE PER NURSING PROTOCOL Performed By: #### L501.080 #### [facility] Point of Care [address] [facility] [address] [place], [place] [id number] Observed: 06/11/2017 Status: F Source: [place] CULTURE, BLOOD (WB) 3:05 PM [facility] REPOSITORY BC No growth in 5 days. Performed By: #### M200.1000 #### [facility] [address] [facility] [place], [place], [id number] CBC W/DIFF, AUTOMATED Collected: 06/11/2017 Status: F Source: GIL[place]ERT[place] 2:55 PM [facility] REPOSITORY TYPE CODE TESTS RESULT OUT OF [...] Lymph 0.98 Performed By: #### L100.0100 #### [facility] [address] [place], [address] LACTIC ACID Collected: 06/11/2017 Status: F Source: [place] 2:55 PM [facility] REPOSITORY Order Comment: Yes/No query for Sepsis Lactate Rule Y TYPE CODE TESTS RESULT OUT OF RANGE REFERENCE UNITS LAB L503.6005 0.4-2.0 mmol/L Normal LACTIC ACID 1.8 Performed By: #### L503.6005 #### [facility] [address] [place], [place], [address] PHOSPHORUS Collected: 06/11/2017 Status: F Source: [place] 2:55 PM [facility] REPOSITORY TYPE CODE TESTS RESULT OUT OF RANGE REFERENCE UNITS LAB L501.2300 2.5-4.9 mg/dL Normal PHOS 3.7 Performed By: #### L501.2300 #### [facility] [address] [place], [place], [address] COMPREHENSIVE METABOLIC Collected: 06/11/2017 Status: F Source: [place] PROFIL 2:55 PM [facility] REPOSITORY TYPE CODE TESTS RESULT OUT OF [...] By: #### L500.4050, L501.5200, L501.6710, L506.0500 #### [facility] [address] [facility] [place], [place], [address] MAGNESIUM Collected: 06/11/2017 Status: F Source: [place] 2:55 PM [facility] REPOSITORY TYPE CODE TESTS RESULT OUT OF RANGE REFERENCE UNITS LAB L501.5200 1.6-2.6 mg/dL Normal MG 1.6 Result Comment: Please note revised Magnesium reference range effective 2017. Performed By: #### L500.4050, L501.5200, L501.6710, L506.0500 #### [facility] [address] [facility] [place], [address] CRP Collected: 06/11/2017 Status: F Source: [place] 2:55 PM [facility] REPOSITORY TYPE CODE TESTS RESULT OUT OF RANGE REFERENCE UNITS LAB L501.6710 0.0-3.0 mg/L High 145.00 C-REACTIVE PROT Result Comment: C-Reactive Protein (CRP) provides useful information for the diagnosis, therapy and monitoring of inflammatory processes and associated diseases. For the evaluation of Relative Risk for Cardiovascular Disease, a High Sensitivity CRP (HSCRP) should be ordered. Performed By: #### L500.4050, L501.5200, L501.6710, L506.0500 #### [facility] [address] [place], [address] PREALBUMIN Collected: 06/11/2017 Status: F Source: [place] 2:55 PM [facility], [facility] HOSPITAL REPOSITORY TYPE CODE TESTS RESULT OUT OF REFERENCE UNITS RANGE LAB L506.0500 20.0-40.0 mg/dL Low PREALBUMIN 14.1 Performed By: #### L500.4050, L501.5200, L501.6710, L506.0500 #### [facility] [address] [place], [address] ERYTHROCYTE SED RATE Collected: 06/11/2017 Status: F Source: [place] 2:55 PM [facility] REPOSITORY TYPE CODE TESTS RESULT OUT OF RANGE REFERENCE UNITS LAB L102.0000 0-30 mm/hr High SED RATE 75 Performed By: #### L101.9900 #### [facility] [address] [facility] [place], [address] Observed: 06/11/2017 Status: F Source: [place] CULTURE, BLOOD (WB) 2:55 PM [facility] REPOSITORY BC No growth in 5 days. Performed By: #### M200.1000 #### [facility] [address] [place], [address] M R STAPH AUREUS Collected: 06/11/2017 Status: F Source: [place] DNA BY PCR 2:00 PM [facility] REPOSITORY Order Comment: Order Date: 06/11/17 Source: NASAL SWAB TYPE CODE TESTS RESULT OUT OF RANGE REFERENCE UNITS LAB L8200.1100 Negative Normal MRSA Negative RESULT Performed By: #### L8200.1000 #### [facility] [address] [place], [place] [address]e. [place], [address] Observed: 06/11/2017 Status: F Source: [place] CULTURE, DEEP WOUND 2:00 PM [facility] REPOSITORY Gram Stain Gram Stain 2+ White [...] 0.5 S (NF) indicates non-formulary drug at [facility]. Approval by Infectious Disease Specialist [...] 1 S (NF) indicates non-formulary drug at [facility]. Approval by Infectious Disease Specialist [...] 0.5 S (NF) indicates non-formulary drug at [facility]. Approval by Infectious Disease Specialist required before non-formulary drugs may be ordered and/or dispensed. * CLSI guidelines does not recommend testing of cephalosporins. This interpretation is deduced from Beta-lactam/penicillin results. Cult, Anaerobic No anaerobic bacteria isolated. Performed By: #### M100.1500 #### [facility] [address] [place], [address] ALLERGIES ALLERGIES DATE TYPE / CODE NAME / CODE REACTION SEVERITY SOURCE 06/11/2018 Drug bupropion Unknown Unknown [place] Allergy/416 HCl/[id number](RXN Community 099842([facility] OR) Hospital ED CT) Repository 06/11/2018 Drug propoxyphene Unknown Unknown [place] Allergy/416 napsylate/[id number] Community 406894([facility] 76(RXNORM) Hospital ED CT) Repository 06/11/2018 Drug atorvastatin Unknown Unknown [place] Allergy/416 calcium/[id number] Community 824788([facility] (RXNORM) [facility] ED CT) Repository 06/11/2018 Drug NSAIDS Other Unknown [place] Allergy/416 (Non-Steroidal Community 880652([facility] Anti-Inflamma/F[address]) 638902(RXNORM) Repository 06/11/2018 Drug Tetanus Vaccines Chest tightness Unknown [place] Allergy/416 and Community 962711([facility] Toxoid/[id number]( Hospital ED CT) RXNORM) Repository 06/11/2018 Drug Quinolones/G119079 Unknown Unknown [place] Allergy/416 668(RXNORM) Community 126337([facility] ED CT) Repository 06/11/2018 Drug gemfibrozil/P02963 Unknown [place] Allergy/416 2050(RXNORM) Community 523282([facility] ED CT) Repository 06/11/2018 Drug mannitol/[id number] joint pain, Unknown [place] Allergy/416 2(RXNORM) unable to Community 489344([facility] breathe, unable Hospital ED CT) to walk Repository 06/11/2018 Drug pravastatin/T57082 MYALGIAS SV [place] Allergy/416 3606(RXNORM) Community 301090([facility] ED CT) Repository 06/11/2018 Drug tizanidine/T169766 Unknown Unknown [place] Allergy/416 021(RXNORM) Community 305555([facility] ED CT) Repository 06/11/2018 Drug zoledronic joint Unknown [place] Allergy/416 acid/[id number](RX pain,unable to Community 038089([facility] Repository 06/07/2018 Drug Penicillins/K13254 Unknown SV [place] Allergy/416 0476(RXNORM) Community 645472([facility] ED CT) Repository 09/21/2017 Drug water for joint pain, Unknown [place] Allergy/416 injection,sterile/ unable to Community 100298([facility] [id number](RXNORM) breathe, unable Hospital ED CT) to walk Repository ENCOUNTERS ENCOUNTERS ADMIT/DISCHARGE ACCOUNT ADMITTING ENCOUNTER LOCATION SOURCE NUMBER CLASS 06/20/2018 [id number] Ambulatory [place] 0 [facility] ing:LAB Repository 06/17/2018/ [id number] Fascione, Ambulatory [place] 9 7 [facility] ing:KE1Mpqq: Repository IX575Tsc: 1 06/17/2018 [id number] Fascione, Ambulatory BMSBuilding:B [place] 4 [facility] 06/17/2018 [id number] [place], Ambulatory BMSBuilding:B [place] 7 [facility] Repository 06/07/2018/ [id number] Emergency [place] 9 7 [facility] ing:ED Repository 06/05/2018 [id number] Ambulatory [place] 0 [facility] ing:LABSPEC Repository 05/22/2018/ [id number] Ambulatory BMSBuilding:B [place] 8 7 [facility] Repository 05/09/2018 [id number] Ambulatory [place] 4 [facility] ing:MEDOUTP Repository 05/08/2018/ [id number] Ambulatory BMSBuilding:B [place] 8 8 [facility] Repository 05/07/2018 [id number] Ambulatory [place] 5 [facility] ing:LAB.FUTUR Repository E 05/01/2018 [id number] Ambulatory [place] 4 [facility] ing:MTLAB Repository 04/02/2018 [id number] Ambulatory [place] 6 [facility] ing:MFPLAB Repository 03/19/2018/ [id number] Ambulatory [place] 8 3 [facility] ing:OT Repository 01/30/2018/ [id number] Ambulatory BMSBuilding:B [place] 8 2 [facility] Repository 01/15/2018 [id number] Ambulatory [place] 5 [facility] ing:MFPLAB Repository 01/13/2018 [id number] Ambulatory [place] 3 [facility] ing:CVS Repository 01/13/2018 [id number] Ambulatory BMSBuilding:W [place] 3 [facility] Repository 12/20/2017 [id number] Ambulatory [place] 5 [facility] ing:LABSPEC Repository 09/21/2017/ [id number] Emergency [place] 8 7 [facility] ing:ED Repository 07/25/2017/ [id number] Emergency [place] 8 8 [facility] ing:ED Repository 07/18/2017 [id number] Ambulatory [place] 9 [facility] ing:LABSPEC Repository 07/17/2017/ [id number] Ambulatory BMSBuilding:B [place] 8 6 [facility] Repository 07/11/2017 [id number] Ambulatory [place] 3 [facility] ing:MFPLAB Repository 06/20/2017/ [id number] Adolfo Rush Chi Inpatient [place] 8 2 Encounter [facility] ing:TCURoom: Repository QQX87Hab: 1 06/11/2017/ [id number] [facility], Inpatient [place] 8 7 [facility] Encounter [facility] ing:GF5Vxzh: Repository II404Pvw: 1 PAYERS PAYERS ENCOUNTER GUARANTOR PAYER SUBSCRIBER SOURCE 06/20/2018 LISA MONSALVEPP644 Primary LISA ROWE: [place] HUYNH Insurance:MEDICARE [id number] [facility] [address]Qdy: (330) Number: Repository [phone] (HP [id number] Date:2018-06-20 06/20/2018 Secondary RY E [place] Insurance:AETNAPolicy RUPPDOB: Community Number: [id number] Hospital [id number] Repository Date:4616-20-59[address] [place] [address]AI: 06/20/2018 Tertiary NOT GIVENUNK [place] Insurance:SELF [facility]Y [facility] Number: Effective Repository Date:2018-06-20 06/17/2018 LISA M [id number] Primary LISA M RUPPDOB: [place] AMINA Insurance:MEDICARE [id number] [facility] [address]Tpo: (330) Number: Repository [phone] () [id number] Date:2018-06-06 06/17/2018 Secondary RY E [place] Insurance:AETNAPolicy RUPPDOB: Community Number: [id number] Hospital [id number] Repository Date:4204-62-16TB [address] [place] [address]XT: 06/17/2018 Tertiary NOT GIVENUNK [place] Insurance:SELF PAY [facility] Number: Effective Repository Date:2018-06-06 06/17/2018 LISA M [id number] Primary LISA M RUPPDOB: [place] AM[place] Insurance:MEDICARE [id number] [facility] [address]Yle: (330) Number: Repository [phone] () [id number] Date:2018-06-06 06/17/2018 Secondary RY E [place] Insurance:AETNAPolicy RUPPDOB: Community Number: [id number] Hospital [id number] Repository Date:0112-69-27OY [address] [place] [place] [address]BT: 06/17/2018 Tertiary NOT GIVENUNK [place] Insurance:SELF PAY [facility] Number: Effective Repository Date:2018-06-17 06/17/2018 LISA M [id number] Primary LISA M RUPPDOB: [place] AM[place] Insurance:MEDICARE [id number] [address]Hrf: (330) Number: Repository [phone] () [id number] Date:2018-06-06 06/17/2018 Secondary RY E [place] Insurance:AETNAPolicy RUPPDOB: Community Number: [id number] Hospital [id number] Repository Date:9592-95-58[address] [address]DJ: 06/17/2018 Tertiary NOT GIVENUNK [place] Insurance:SELF PAY [facility] Number: Effective Repository Date:2018-06-17 06/07/2018 LISA M [id number] Primary LISA M RUPPDOB: [place] Insurance:MEDICARE [id number] [facility] [address]Fdu: (330) Number: Repository [phone] () [id number] Date:2018-06-07 06/07/2018 Secondary RY E [place] Insurance:RURAL RUPPDOB: Community CARRIER BENEFIT [id number] [facility] Number: Repository [id number] Date:2198-20-78[address], [place] [address]UU: 06/07/2018 Tertiary NOT GIVENUNK [place] Insurance:SELF PAY [facility] Number: Effective Repository Date:2018-06-07 06/05/2018 LISA M [id number] Primary LISA M RUPPDOB: [place] Insurance:MEDICARE [id number] [facility] [address]Pyj: (330) Number: Repository [phone] () [id number] Date:2018-06-05 06/05/2018 Secondary RY E [place] Insurance:AETNAPolicy RUPPDOB: Community Number: [id number] Hospital [id number] Repository Date:0900-95-88BC [address] [place] [address]RG: 06/05/2018 Tertiary NOT GIVENUNK [place] Insurance:SELF PAY [facility] Number: Effective Repository Date:2018-06-05 05/22/2018 LISA M [id number] Primary LISA M RUPPDOB: [place] Insurance:MEDICARE [id number] [id number]: (330) Number: Repository [phone] () [id number] Date:2018-05-08 05/22/2018 Secondary RY E [place] Insurance:RURAL RUPPDOB: Community CARRIER BENEFIT [id number] Hospital PLANPolicy Number: Repository [id number] Date:9291-58-95[address], [place] [address]MA: 05/22/2018 Tertiary NOT GIVENUNK [place] Insurance:SELF PAY [facility] Number: Effective Repository Date:2018-05-19 05/09/2018 LISA M [id number] Primary LISA M RUPPDOB: [place] Insurance:MEDICARE [id number] [facility] [address]Djy: (330) Number: Repository [phone] () [id number] Date:2018-05-05 05/09/2018 Secondary RY E [place] Insurance:RURAL RUPPDOB: Community CARRIER BENEFIT [id number] Hospital PLANPolicy Number: Repository [id number] Date:6264-81-49[address], [place] [address]LI: 05/09/2018 Tertiary NOT GIVENUNK [place] Insurance:SELF PAY [facility] Number: Effective Repository Date:2018-05-05 05/08/2018 LISA M [id number] Primary LISA M RUPPDOB: [place] Insurance:MEDICARE [id number] [place] [id number]: (330) Number: Repository [phone] () [id number] Date:2018-01-30 05/08/2018 Secondary RY E [place] Insurance:RURAL RUPPDOB: Community CARRIER BENEFIT [id number] Hospital PLANPolicy Number: Repository [id number] Date:3806-67-62BS [address] [address]YP: 05/08/2018 Tertiary NOT GIVENUNK [place] Insurance:SELF PAY [facility] Number: Effective Repository Date:2018-05-08 05/07/2018 LISA M [id number] Primary LISA M RUPPDOB: [place] Insurance:MEDICARE [id number] [facility] A [facility] [address]Ekr: (330) Number: Repository [phone] () [id number] Date:2018-05-07 05/07/2018 Secondary RY E [place] Insurance:RURAL RUPPDOB: Community CARRIER BENEFIT [id number] Hospital PLANPolicy Number: Repository [id number] Date:2296-40-33[address] [place] [address]SO: 05/07/2018 Tertiary NOT GIVENUNK [place] Insurance:SELF PAY [facility] Number: Effective Repository Date:2018-05-07 05/01/2018 LISA M [id number] Primary LISA M RUPPDOB: [place] Insurance:MEDICARE [id number] [facility] [address]Kzx: (330) Number: Repository [phone] () [id number] Date:2018-05-01 05/01/2018 Secondary RY E [place] Insurance:RURAL RUPPDOB: Community CARRIER BENEFIT [id number] Hospital PLANPolic Number: Repository [id number] Date:6587-36-66[facility] [address] [place] [address]IL: 05/01/2018 Tertiary NOT GIVENUNK [place] Insurance:SELF PAY [facility] Number: Effective Repository Date:2018-05-01 04/02/2018 LISA M [id number] Primary LISA M RUPPDOB: [place] Insurance:MEDICARE [id number] [facility] [address]Deb: (330) Number: Repository [phone] () [id number] Date:2018-04-02 04/02/2018 Secondary Ry E [place] Insurance:RURAL RuppDOB: Community CARRIER BENEFIT [id number] Hospital PLANPolicy Number: Repository [id number] Date:1729-89-46WJ [address] [address]TB: 04/02/2018 Tertiary NOT GIVENUNK [place] Insurance:SELF PAY [facility] Number: Effective Repository Date:2018-04-02 03/19/2018 LISA M [id number] Primary LISA M RUPPDOB: [place] Insurance:MEDICARE [id number] [facility] [address]Saf: (330) Number: Repository [phone] () [id number] Date:2012-05-27 03/19/2018 Secondary RY E [place] Insurance:RURAL RUPPDOB: Community CARRIER BENEFIT [id number] Hospital PLANPolicy Number: Repository [id number] Date:4605-23-77UU [address] [address]ZB: 03/19/2018 Tertiary NOT GIVENUNK [place] Insurance:SELF PAY [facility] Number: Effective Repository Date:2018-03-06 01/30/2018 LISA M [id number] Primary Ry E [place] AM[place] Insurance:RURAL RuppDOB: [place] CARRIER BENEFIT [id number] Hospital [address]Bcq: (330) PLANPolicy Number: Repository [phone] () [id number] Date:8502-22-63RJ [address] [address]DX: 01/30/2018 Secondary LISA M RUPPDOB: [place] Insurance:MEDICARE [id number] Community PART A [facility] Number: Repository [id number] Date:2017-07-17 01/30/2018 Tertiary NOT GIVENUNK [place] Insurance:SELF PAY [facility] Number: Effective Repository Date:2018-01-30 01/15/2018 LISA M [id number] Primary LISA M RUPPDOB: [place] Insurance:MEDICARE [id number] [facility] [address]Wtt: (330) Number: Repository [phone] () [id number] Date:2018-01-15 01/15/2018 Secondary Ry E [place] Insurance:RURAL RuppDOB: Community CARRIER BENEFIT [id number] Hospital PLANPolicy Number: Repository [id number] Date:8487-10-04[address] [address]QU: 01/15/2018 Tertiary NOT GIVENUNK [place] Insurance:SELF PAY [facility] Number: Effective Repository Date:2018-01-15 01/13/2018 LISA M [id number] Primary LISA M RUPPDOB: [place] Insurance:MEDICARE [id number], [place] PART A [facility] [address]Cdb: (330) Number: Repository [phone] () [id number] Date:2018-01-08 01/13/2018 Secondary Ry E [place] Insurance:RURAL RuppDOB: Community CARRIER BENEFIT [id number] Hospital PLANPolicy Number: Repository [id number] Date:7248-25-91[address] [place] [address]BS: 01/13/2018 Tertiary NOT GIVENUNK [place] Insurance:SELF PAY [facility] Number: Effective Repository Date:2018-01-08 01/13/2018 LISA M [id number] Primary LISA M RUPPDOB: [place] Insurance:MEDICARE [id number] PART A [facility] [address]Yae: (330) Number: Repository [phone] () [id number] Date:2018-01-08 01/13/2018 Secondary Ry E [place] Insurance:RURAL RuppDOB: [facility] CARRIER BENEFIT [id number] Hospital PLANPolicy Number: Repository [id number] Date:2377-99-43[address] [place] [address]GR: 01/13/2018 Tertiary NOT GIVENUNK [place] Insurance:SELF PAY [facility] Number: Effective Repository Date:2018-01-13 12/20/2017 LISA M [id number] Primary Ry E [place] Insurance:RURAL RuDOB: [place] CARRIER BENEFIT [id number] Hospital [address]Gpa: (330) PLANPolicy Number: Repository [phone] () [id number] Date:6370-53-32SM [address] [place] [address]NC: 12/20/2017 Secondary LISA M RUPPDOB: [place] Insurance:MEDICARE [id number] [facility] PART [facility] Number: Repository [id number] Date:2017-12-20 12/20/2017 Tertiary NOT GIVENUNK [place] Insurance:SELF PAY [facility] Number: Effective Repository Date:2017-12-20 09/21/2017 LISA M [id number] Primary Ry E [place] Insurance:RURAL RuDOB: [place] CARRIER BENEFIT [id number] Hospital [address]Qjk: PLANPolicy Number: Repository [phone] [id number] () Date:3756-03-89[address] [place] [address]AC: 09/21/2017 Secondary LISA M RUPPDOB: [place] Insurance:MEDICARE [id number] Community PART A [facility] Number: Repository [id number] Date:2017-09-21 09/21/2017 Tertiary NOT GIVENUNK [place] Insurance:SELF PAY [facility] Number: Effective Repository Date:2017-09-21 07/25/2017 LISASAMANTHA MONSALVEPP644 Primary Ry E [place] Insurance:RURAL RuppDOB: [place] CARRIER BENEFIT [id number] Hospital [address]Bar: PLANPolicy Number: Repository [phone] [id number] (HP) Date:4695-39-01[place] [address] [address]UI: 07/25/2017 Secondary LISA M RUPPDOB: [place] Insurance:MEDICARE [id number] Community PART A [facility] Number: Repository [id number] Date:2017-07-25 07/25/2017 Tertiary NOT GIVENUNK [place] Insurance:SELF PAY [facility] Number: Effective Repository Date:2017-07-25 07/18/2017 LISASAMANTHA MONSALVEPP644 Primary Ry [address] [place] Insurance:RURAL RuppDOB: [place] CARRIER BENEFIT [id number] Hospital [address]Hyw: PLANPolicy Number: Repository [phone] [id number] (HP) Date:3996-61-23XT [address] [address]FL: 07/18/2017 Secondary LISA Feliz RUPPDOB: [place] Insurance:MEDICARE [id number] Community PART A [facility] Number: Repository [id number] Date:2017-07-18 07/18/2017 Tertiary NOT GIVENUNK [place] Insurance:SELF PAY [facility] Number: Effective Repository Date:2017-07-18 07/17/2017 LISA Trini MONSALVEFODO740 Primary LISA M RUPPDOB: [place] Insurance:MEDICARE [id number] [facility] [address]Bjy: Number: Repository [phone] [id number] (HP) Date:2017-07-16 07/17/2017 Secondary Ry E [place] Insurance:RURAL RuppDOB: Community CARRIER BENEFIT [id number] Hospital PLANPolicy Number: Repository [id number] Date:6619-80-74FT [address] [place] [address]PR: 07/17/2017 Tertiary NOT GIVENUNK [place] Insurance:SELF PAY [facility] Number: Effective Repository Date:2017-07-16 07/11/2017 LISA MONSALVEPP644 Primary Ry E Dowell AMINA Insurance:RURAL RuppDOB: [place] CARRIER BENEFIT [id number] [address]Qud: PLANPolicy Number: Repository [phone] [id number] () Date:[id number] [address] [address]BT: 07/11/2017 Secondary LISA Feliz RUPPDOB: [place] Insurance:MEDICARE [id number] [facility] PART A [facility] [address] [facility] Number: Repository [id number] Date:2017-07-11 07/11/2017 Tertiary NOT GIVENUNK Dowell Insurance:SELF PAY [facility] Effective Repository Date:2017-07-11 06/20/2017 LISA Feliz [id number] Primary Ry E [place]to AMINA Insurance:RURAL RuppDOB: [place] CARRIER BENEFIT [id number] Hospital [address]Fhl: PLANPolicy Number: Repository [phone] [id number] () Date:[id number] [address] [address]NV: 06/20/2017 Secondary LISA Feliz RUPPDOB: [place] Insurance:MEDICARE A [id number] Community ONLYPolicy Number: Hospital [id number] Repository Date:2017-06-20 06/20/2017 Tertiary NOT GIVENUNK Dow[place] Insurance:SELF PAY [facility] Number: Effective Repository Date:2017-06-20 06/11/2017 LISA M [id number] Primary Ry E Dowell AMINA Insurance:RURAL RuppDOB: [place] CARRIER BENEFIT [id number] Hospital [address]Bxe: PLANPolicy Number: Repository [phone] [id number] () Date:[id number] [address] [address]AH: 06/11/2017 Secondary LISA ROWE: [place] Insurance:MEDICARE A [id number] [facility] ONLYPolicy Number: Hospital [id number] Repository Date:2017-06-11 06/11/2017 Tertiary NOT GIVENUNK [place] Insurance:SELF PAY [facility]: Effective Repository Date:2017-06-11
== END 2018-06-18 17:00 | disposition home or self-care (01) ==
LOC: SDC 19:25 → MS3 19:26
PROVIDERS: Internal Medicine; Admitting Provider Podiatrist; Family Provider Family Medicine; PCP Family Medicine; Referring Provider Podiatrist; Visit Provider Family Medicine
PROC: (CPT 28122; principal; 2018-06-17 12:45)
DX: E11.610 Type 2 diabetes mellitus with diabetic neuropathic arthropathy (principal); E11.42 Type 2 diabetes mellitus with diabetic polyneuropathy; E11.621 Type 2 diabetes mellitus with foot ulcer; L97.524 Non-pressure chronic ulcer of other part of left foot with necrosis of bone; G89.4 Chronic pain syndrome; E11.39 Type 2 diabetes mellitus with other diabetic ophthalmic complication; F41.9 Anxiety disorder, unspecified; F32.9 Major depressive disorder, single episode, unspecified; I25.10 Atherosclerotic heart disease of native coronary artery without angina pectoris; I10 Essential (primary) hypertension; K21.9 Gastro-esophageal reflux disease without esophagitis; S93.332A Other subluxation of left foot, initial encounter; X58.XXXA Exposure to other specified factors, initial encounter; Z86.718 Personal history of other venous thrombosis and embolism; Z79.82 Long term (current) use of aspirin; Z79.899 Other long term (current) drug therapy; Z79.02 Long term (current) use of antithrombotics/antiplatelets; Z79.4 Long term (current) use of insulin; Z98.84 Bariatric surgery status; Z95.1 Presence of aortocoronary bypass graft; Z86.73 Personal history of transient ischemic attack (TIA), and cerebral infarction without residual deficits; D50.9 Iron deficiency anemia, unspecified; E78.2 Mixed hyperlipidemia; E03.9 Hypothyroidism, unspecified; E55.9 Vitamin D deficiency, unspecified; E11.65 Type 2 diabetes mellitus with hyperglycemia
CPT/HCPCS: 01480; 28122; 36415; 71046; 73620; 76000; 80048; 80053; 82306; 82330; 82962; 83036; 83735; 85025; 85652; 86140; 87015; 87070; 87075; 87102; 87116; 87205; 87206; 87640; 88304; 88305; 88311; 93005; 96361; 96365; 96366; 96372; 96375; 96376; 97162; 99218; J7030; J7120; A4216; G0378; G0379; J2405

== ENCOUNTER → 2018-06-20 15:44 | Outpatient (CLI) | payer MEDICARE, OTHER, SELFPAY ==
[2018-06-17 16:05] VITALS: BMI 30.4
[2018-06-20 16:56] LABS: ALB/GLOB Ratio 0.8 RATIO (0.9-2.4); AST(SGOT) 14 U/L (15-37); Alanine Aminotransfer ALT/SGPT 14 U/L (13-56); Albumin, Serum 3.1 g/dL (3.2-5.0); Alkaline Phosphatase 77 U/L (45-117); Anion Gap 10 (5-15); BUN 29 mg/dL (7-18); BUN/Creat Ratio 22.8 RATIO (10-20); Chloride 109 mmol/L (98-107); Creatinine, Serum 1.27 mg/dL (0.55-1.02); EST Glomerular Filtration Rate 44 mL/min (>60); Est Glom Filt Rate - Afr Amer 53 mL/min (>60); Glucose 136 mg/dL (74-106); Magnesium 1.9 mg/dL (1.6-2.6); Potassium 4.5 mmol/L (3.5-5.1); Protein, Total 7.1 g/dL (6.4-8.2); Sodium Level 140 mmol/L (136-145)
[2018-06-20 17:05] LABS: Vitamin D,25 Hydroxy 31.5 ng/mL (29.95-100.01)
[2018-06-20 17:06] LABS: PTHIN 57.8 pg/mL (18.4-80.1)
== END ==
PROVIDERS: Family Provider Family Medicine; PCP Family Medicine; Referring Provider Family Medicine; Visit Provider Family Medicine
DX: E55.9 Vitamin D deficiency, unspecified (principal); R79.89 Other specified abnormal findings of blood chemistry
CPT/HCPCS: 36415; 80053; 82306; 83735; 83970

== ENCOUNTER → 2018-06-26 12:04 | Outpatient (CLI) | payer MEDICARE, OTHER, SELFPAY ==
[2018-06-17 16:05] VITALS: BMI 30.4
[2018-06-26 14:16] LABS: Absolute Lymphocyte Count 2.17 X10^3/ul (0.83-4.51); Basophil# 0.03 X10^3/uL; Basophil% 0.4 % (0-1); Eosinophil# 0.22 X10^3/uL; Eosinophils% 2.7 % (0-5); Hematocrit 38.7 % (37-47); Hemoglobin 12.3 g/dl (12.0-15.0); Lymphocyte # 2.17 X10^3/ul (4.0); Lymphocyte % 27.1 % (19-41); Mean Corp Hgb Conc 31.8 g/gl (32-36); Mean Corpuscular Hgb 26.6 pg (27.0-32.0); Mean Corpuscular Volume 83.6 fL (81-99); Mean Platelet Vol. 9.9 fl (6.2-12.0); Monocyte# 0.62 X10^3/uL; Monocyte% 7.7 % (0-10); Neutrophil # 4.96 X10^3/uL (2.7-7.7); Platelet Count 268 K/mm3 (150-450); RBC Distribution Width CV 16.6 % (11.6-14.6); RBC Distribution Width SD 49.3 fl (35.1-43.9); Red Blood Count 4.63 M/mm3 (4.2-5.4)
[2018-06-26 14:20] LABS: POSITIVE COUNT NO; POSITIVE DIFFERENTIAL NO; POSITIVE MORPHOLOGY NO
[2018-06-26 14:51] LABS: PTHIN 93.3 pg/mL (18.4-80.1); Vitamin D,25 Hydroxy 28.2 ng/mL (29.95-100.01)
[2018-06-26 14:59] LABS: AST(SGOT) 16 U/L (15-37); Alanine Aminotransfer ALT/SGPT 20 U/L (13-56); Albumin, Serum 3.4 g/dL (3.2-5.0); Alkaline Phosphatase 84 U/L (45-117); Anion Gap 8 (5-15); BUN 37 mg/dL (7-18); BUN/Creat Ratio 26.4 RATIO (10-20); Calcium,Total 8.4 mg/dL (8.5-10.1); Chloride 108 mmol/L (98-107); EST Glomerular Filtration Rate 39 mL/min (>60); Est Glom Filt Rate - Afr Amer 48 mL/min (>60); Globulin 3.5 g/dL (2.2-4.2); Glucose 157 mg/dL (74-106); Magnesium 2.1 mg/dL (1.6-2.6); Potassium 5.2 mmol/L (3.5-5.1); Protein, Total 6.9 g/dL (6.4-8.2); Sodium Level 140 mmol/L (136-145); Thyroid Stim Hormone (TSH) 1.52 uIU/mL (0.358-3.74)
== END ==
PROVIDERS: Family Provider Family Medicine; PCP Family Medicine; Visit Provider Family Medicine
DX: E83.51 Hypocalcemia (principal); G89.4 Chronic pain syndrome
CPT/HCPCS: 36415; 80053; 82306; 83735; 83970; 84443; 85025

== ENCOUNTER → 2018-07-07 13:19 | Outpatient (CLI) | payer MEDICARE, OTHER, SELFPAY ==
[2018-06-17 16:05] VITALS: BMI 30.4
--- NOTE | 2018-07-07 13:24 | ART_ITS ---
Reason For Study: Ulcer of left foot Procedure A bilateral lower extremity continuous wave Doppler with analog waveform analysis,segmental pressures,and ankle brachial indexes without exercise. Left Segmental Pressures Left brachial= 108mmHg. Left posterior tibial artery = 104mmHg. Left dorsalis pedis artery = 151mmHg. Left digit = 101 mmHg. The left dorsalis pedis waveforms are triphasic. The left posterior tibial artery waveforms are biphasic. Right Segmental Pressures Right brachial= 117mmHg. Right posterior tibial artery = 88mmHg. Right dorsalis pedis artery = 123mmHg. The right dorsalis pedis waveforms are biphasic. The right posterior tibial artery waveforms are biphasic. Indices The right ankle brachial index by the dorsalis pedis is 1.05. The right ankle brachial index by the posterior tibial artery is 0.75. The left ankle brachial index by the dorsalis pedis is 1.29. The left ankle brachial index by the posterior tibial artery is 0.89. The left digital-brachial index is 0.86. Interpretation Summary Biphasic Doppler waveforms are noted at ankle level on the right. Triphasic and biphasic waveforms are noted at ankle level on the left. Pulse-volume recordings demonstrate satisfactory waveform amplitudes bilaterally at low-thigh, calf, and ankle levels, and at digital level on the left. Resting ankle-brachial indices are bilaterally normal, though there is evidence of mild occlusive disease in certain distributions or angiosomes. The right digital-brachial index was not determined. The left digital-brachial index is normal. Arterial perfusion appears to be relatively normal bilaterally, though with evidence of mild regional or angiosomal occlusive disease. Clinical correlation is advised. Ordering Physician: Ivanna Magana Referring Physician: Con Johnson MD Performed By: Barb Bustillos RVT and Student
[2018-07-07 14:48] LABS: Hematocrit 39.3 % (37-47); Hemoglobin 12.3 g/dl (12.0-15.0); Mean Corp Hgb Conc 31.3 g/gl (32-36); Mean Corpuscular Volume 83.1 fL (81-99); Mean Platelet Vol. 10.5 fl (6.2-12.0); Platelet Count 254 K/mm3 (150-450); RBC Distribution Width CV 15.8 % (11.6-14.6); RBC Distribution Width SD 47.3 fl (35.1-43.9); Red Blood Count 4.73 M/mm3 (4.2-5.4); White Blood Count 8.9 K/mm3 (4.4-11.0)
[2018-07-07 14:50] LABS: Scan Indicated on CBC? Y/N NO
[2018-07-07 15:03] LABS: Erythrocyte Sedimentation Rate 43 mm/hr (0-30)
[2018-07-07 15:38] LABS: Anion Gap 7 (5-15); BUN 39 mg/dL (7-18); BUN/Creat Ratio 25.7 RATIO (10-20); Calcium,Total 9.2 mg/dL (8.5-10.1); Chloride 107 mmol/L (98-107); Creatinine, Serum 1.52 mg/dL (0.55-1.02); EST Glomerular Filtration Rate 36 mL/min (>60); Est Glom Filt Rate - Afr Amer 43 mL/min (>60); Glucose 64 mg/dL (74-106); Potassium 4.6 mmol/L (3.5-5.1); Sodium Level 138 mmol/L (136-145)
== END ==
PROVIDERS: Family Provider Family Medicine; PCP Family Medicine; Referring Provider Podiatrist; Visit Provider Podiatrist
DX: I73.9 Peripheral vascular disease, unspecified (principal); L97.522 Non-pressure chronic ulcer of other part of left foot with fat layer exposed; M86.072 Acute hematogenous osteomyelitis, left ankle and foot
CPT/HCPCS: 36415; 80048; 85027; 85652; 93923

== ENCOUNTER → 2018-07-28 16:03 | Outpatient (CLI) | payer MEDICARE, OTHER, SELFPAY ==
[2018-06-17 16:05] VITALS: BMI 30.4
--- NOTE | 2018-07-28 16:08 | RAD_ITS ---
STUDY: X-RAY - ABDOMEN/PELVIS REASON FOR EXAM: Female, 73 years old. Nausea TECHNIQUE: 3 views COMPARISON: 11/26/2016 FINDINGS: Constipation pattern is present. Acute air-fluid levels within small bowel without distention could be related to ileus or enteritis. There is no demonstrated free abdominal air. The visualized liver, spleen and kidneys are grossly normal in size and morphology. Normal soft tissue structures. There are diffuse degenerative changes of the visualized lumbar spine. RAD/[employer] Decub and/or Erect IMPRESSION: Constipation pattern is present. Acute air-fluid levels within small bowel without distention could be related to ileus or enteritis. Electronically Signed: Lucas Campoverde MD at 0:01 EST Tel , Service support ,
[2018-07-28 17:43] LABS: Absolute Lymphocyte Count 2.44 X10^3/ul (0.83-4.51); Absolute Neutrophil Count 6.2 X10^3/uL (2.0-7.7); Basophil# 0.03 X10^3/uL; Basophil% 0.3 % (0-1); Eosinophil# 0.39 X10^3/uL; Hematocrit 38.3 % (37-47); Hemoglobin 12.3 g/dl (12.0-15.0); Lymphocyte # 2.44 X10^3/ul (4.0); Lymphocyte % 24.9 % (19-41); Mean Corp Hgb Conc 32.1 g/gl (32-36); Mean Corpuscular Hgb 26.2 pg (27.0-32.0); Mean Corpuscular Volume 81.5 fL (81-99); Mean Platelet Vol. 10.1 fl (6.2-12.0); Monocyte# 0.73 X10^3/uL; Monocyte% 7.4 % (0-10); Neutrophil # 6.19 X10^3/uL (2.7-7.7); Neutrophil % 63.2 % (47-70); POSITIVE COUNT NO; POSITIVE DIFFERENTIAL NO; POSITIVE MORPHOLOGY NO; Platelet Count 234 K/mm3 (150-450); RBC Distribution Width CV 15.3 % (11.6-14.6); RBC Distribution Width SD 45.2 fl (35.1-43.9); White Blood Count 9.8 K/mm3 (4.4-11.0)
[2018-07-28 18:06] LABS: ALB/GLOB Ratio 0.9 RATIO (0.9-2.4); AST(SGOT) 24 U/L (15-37); Alanine Aminotransfer ALT/SGPT 33 U/L (13-56); Albumin, Serum 3.5 g/dL (3.2-5.0); Alkaline Phosphatase 83 U/L (45-117); Anion Gap 10 (5-15); BUN 51 mg/dL (7-18); BUN/Creat Ratio 33.8 RATIO (10-20); Calcium,Total 8.6 mg/dL (8.5-10.1); Chloride 106 mmol/L (98-107); Creatinine, Serum 1.51 mg/dL (0.55-1.02); EST Glomerular Filtration Rate 36 mL/min (>60); Est Glom Filt Rate - Afr Amer 44 mL/min (>60); Globulin 3.8 g/dL (2.2-4.2); Glucose 185 mg/dL (74-106); Potassium 5.2 mmol/L (3.5-5.1); Protein, Total 7.3 g/dL (6.4-8.2); Sodium Level 137 mmol/L (136-145)
== END ==
PROVIDERS: Family Provider Family Medicine; PCP Family Medicine; Referring Provider Family Medicine; Visit Provider Family Medicine
DX: R11.0 Nausea (principal)
CPT/HCPCS: 74019; 80053; 82140; 85025

== ENCOUNTER → 2018-11-17 15:58 | Outpatient (CLI) | payer MEDICARE, OTHER, SELFPAY ==
[2018-06-17 16:05] VITALS: BMI 30.4
[2018-11-17 17:31] LABS: Color, Urine Yellow (Yellow); Glucose, Dipstick 50 mg/dl (Normal); Ketone-Dipstick Negative (Negative); Leukocyte Esterase-Dipstick 100 /ul (Negative); Nitrite-Dipstick Negative (Negative); Occult Blood-Urine Negative /ul (Negative); Protein-Dipstick 15 mg/dl (Negative); Specific Gravity, Urine 1.015 (1.002-1.030); Urine Bilirubin Dipstick Negative (Negative); Urine Clarity Clear (Clear); Urine Urobilinogen Normal (Normal)
[2018-11-17 17:40] LABS: Hematocrit 37.9 % (37-47); Hemoglobin 12.3 g/dl (12.0-15.0); Mean Corp Hgb Conc 32.5 g/gl (32-36); Mean Corpuscular Hgb 26.3 pg (27.0-32.0); Mean Corpuscular Volume 81.2 fL (81-99); Platelet Count 228 K/mm3 (150-450); RBC Distribution Width CV 16.2 % (11.6-14.6); RBC Distribution Width SD 47.3 fl (35.1-43.9); Red Blood Count 4.67 M/mm3 (4.2-5.4); White Blood Count 8.7 K/mm3 (4.4-11.0)
[2018-11-17 17:44] LABS: AST(SGOT) 20 U/L (15-37); Alanine Aminotransfer ALT/SGPT 25 U/L (13-56); Albumin, Serum 3.8 g/dL (3.2-5.0); Alkaline Phosphatase 81 U/L (45-117); Anion Gap 7 (5-15); BUN 33 mg/dL (7-18); Calcium,Total 8.8 mg/dL (8.5-10.1); Chloride 112 mmol/L (98-107); Creatinine, Serum 1.32 mg/dL (0.55-1.02); EST Glomerular Filtration Rate 42 mL/min (>60); Est Glom Filt Rate - Afr Amer 51 mL/min (>60); Globulin 3.7 g/dL (2.2-4.2); Glucose 69 mg/dL (74-106); Magnesium 2.3 mg/dL (1.6-2.6); Potassium 4.7 mmol/L (3.5-5.1); Protein, Total 7.5 g/dL (6.4-8.2); Scan Indicated on CBC? Y/N NO; Sodium Level 142 mmol/L (136-145)
[2018-11-17 17:52] LABS: Erythrocyte Sedimentation Rate 13 mm/hr (0-30)
[2018-11-17 18:11] LABS: Hemoglobin A1c 7.8 % (4.2-6.3)
== END ==
PROVIDERS: Family Provider Family Medicine; PCP Family Medicine; Visit Provider Family Medicine
DX: E11.39 Type 2 diabetes mellitus with other diabetic ophthalmic complication (principal); R11.0 Nausea
CPT/HCPCS: 36415; 80053; 81002; 83036; 83735; 85027; 85652

== ENCOUNTER → 2018-11-19 15:38 | Outpatient (CLI) | payer MEDICARE, OTHER, SELFPAY ==
[2018-06-17 16:05] VITALS: BMI 30.4
--- NOTE | 2018-11-19 15:46 | RAD_ITS ---
STUDY: X-RAY - ABDOMEN/PELVIS REASON FOR EXAM: Female, 73 years old. Constipation. TECHNIQUE: For frontal images of the abdomen were obtained. COMPARISON: None. FINDINGS: There are sternotomy wires in place. There are scattered air-fluid levels associated with scattered mildly dilated loops of small bowel. There is gas noted within the region of the rectum. Normal soft tissue structures. There are diffuse degenerative changes of the visualized lumbar spine. RAD/Abd Inc Decub and/or Erect IMPRESSION: Findings concerning for a small bowel ileus. Electronically Signed: Norma Jarvis MD at 16:11 EDT Tel , Service support ,
== END ==
PROVIDERS: Family Provider Family Medicine; PCP Family Medicine; Referring Provider Family Medicine; Visit Provider Family Medicine
DX: K59.00 Constipation, unspecified (principal)
CPT/HCPCS: 74019

== ENCOUNTER 2018-12-03 07:03 | Day surgery (SDC) | payer MEDICARE, OTHER, SELFPAY ==
[2018-11-24 14:54] VITALS: BMI 29.7
[2018-11-25 09:48] LABS: Absolute Neutrophil Count 4.6 X10^3/uL (2.0-7.7); Basophil# 0.02 X10^3/uL; Basophil% 0.2 % (0-1); Eosinophil# 0.23 X10^3/uL; Eosinophils% 2.7 % (0-5); Hematocrit 37.3 % (37-47); Hemoglobin 11.9 g/dl (12.0-15.0); Lymphocyte % 33.2 % (19-41); Mean Corp Hgb Conc 31.9 g/gl (32-36); Mean Corpuscular Hgb 26.3 pg (27.0-32.0); Mean Corpuscular Volume 82.3 fL (81-99); Mean Platelet Vol. 10.1 fl (6.2-12.0); Monocyte# 0.73 X10^3/uL; Monocyte% 8.7 % (0-10); Neutrophil # 4.64 X10^3/uL (2.7-7.7); Neutrophil % 55.1 % (47-70); Platelet Count 208 K/mm3 (150-450); RBC Distribution Width CV 15.6 % (11.6-14.6); RBC Distribution Width SD 46.6 fl (35.1-43.9); Red Blood Count 4.53 M/mm3 (4.2-5.4); White Blood Count 8.4 K/mm3 (4.4-11.0)
[2018-11-25 09:57] LABS: POSITIVE COUNT NO; POSITIVE DIFFERENTIAL NO; POSITIVE MORPHOLOGY NO
[2018-11-25 09:59] LABS: International Normalized Ratio 1.1; Prothrombin Time (Protime)PT. 14.1 SECONDS (11.7-14.9)
[2018-11-25 10:12] LABS: AST(SGOT) 19 U/L (15-37); Alanine Aminotransfer ALT/SGPT 23 U/L (13-56); Albumin, Serum 3.4 g/dL (3.2-5.0); Alkaline Phosphatase 70 U/L (45-117); Anion Gap 10 (5-15); BUN 41 mg/dL (7-18); BUN/Creat Ratio 31.1 RATIO (10-20); Bilirubin, Direct 0.09 mg/dL (0.00-0.30); Calcium,Total 8.6 mg/dL (8.5-10.1); Chloride 109 mmol/L (98-107); Cholesterol 136 mg/dL (200); Creatinine, Serum 1.32 mg/dL (0.55-1.02); EST Glomerular Filtration Rate 42 mL/min (>60); Est Glom Filt Rate - Afr Amer 51 mL/min (>60); Globulin 3.3 g/dL (2.2-4.2); Glucose 86 mg/dL (74-106); High Density Lipoprotein 42 mg/dL; Potassium 4.3 mmol/L (3.5-5.1); Protein, Total 6.7 g/dL (6.4-8.2); Sodium Level 143 mmol/L (136-145); Triglycerides 215 mg/dL; Very Low Density Lipoprotein 43 mg/dL (5-40)
[2018-12-02 07:19] VITALS: BMI 29.7
[2018-12-03] VITALS (22 sets, daily range): BP systolic 97–168; BP diastolic 40–85; PULSE 63–75; RESP 10–20; TEMP 36.7; O2SAT 96–100; BMI 31.3
[2018-12-03] MEDS: 0.9% Normal Saline 1,000 ML 150 ML IV (13:30)
--- NOTE | 2018-12-03 13:44 | EKG12_ITS ---
Test Reason : POST STENT Blood Pressure : / mmHG Vent. Rate : 066 BPM Atrial Rate : 066 BPM P-R Int : 198 ms QRS Dur : 088 ms QT Int : 408 ms P-R-T Axes : 077 -27 076 degrees QTc Int : 427 ms Normal sinus rhythm Normal ECG When compared with ECG of 18-JUN-2018 05:13, No significant change was found Confirmed by MIGUEL ANGEL ANAYA, FADI ([id number]), copy editor DINESH REYES ([id number]) on 12/05/2018 12:41:20 PM Referred By: Claus Hatfield Confirmed By:POLLY MICHELLE MD
--- NOTE | 2018-12-03 13:49 | CL.I_ITS ---
Patient Name: SEBASTIÁN REYES Study Date: 12/03/2018 Performing: Claus Hatfield MD Ht: 64.17 inches 163 cm : 1945 Wt: 171.96 lbs 78 kg Age: 73 Gender: female BSA: 1.84 PROCEDURE(S) PERFORMED BB56-OSZ/COR/LV/CABG QO88-GUQ W OR WO PTCA, SINGLE CORONARY ARTERY CLINICAL PROFILE AND CO-MORBIDITIES Indications: New Onset Angina <= 2 months, Stable Known CAD, Other;Back pain and dyspnea on exert ion Heart Failure: None Stress/Imaging Date: 10/11/2017 Stress Echocardiogram: Negative Angina Classification Anginal Classification w/in 2 Weeks: CCS IV CAD Presentations: Unstable angina. Other: Dyspnea on exertion. Comorbidities/Risk Factors: Hypertension Dyslipidemia Prior PCI Prior CABG Diabetes Mellitus: Diabetes Therapy: Insulin CONCLUSIONS Normal Left Ventricular systolic function Perserved Left Ventricular systolic function with normal EDP LVEF: by LV gram 75 % Triple vessel CAD of the LAD, LCX, RCA Successful PTCA/YASIR mid LCX with a 2.5 x 20 Promus Synergy stent; 85%-->0-%, no dissection. RECOMMENDATIONS Referred for immediate PCI Medical management of RCA unless or until pt has recurrent symptoms after PCI of LCX. Highly recommend quitting all tobacco products Follow up with primary faculty research physician Risk factor modification ASA Indefinitley Plavix for at least 12 months Routine post interventional care Refer for Outpatient Cardiac Rehab Manual sheath removal per protocol Follow up with Dr. Hatfield Consider FFR eval of RCA in 3 weeks if pt continues to struggle with CP and/or Dyspnea on exertion de spite maximal medical therapy. Successfull Mynx Control closure of RFA. Pt had identical chest pain/anginal symptoms during balloon and stent deployment. DESCRIPTION OF PROCEDURE The patient arrived to the procedure lab. The risks and benefits of the procedure as well as a full d escription of our services here and lack of surgical backup were fully explained to the patient and/o r their significant other prior to the catheterization. The Timeout was completed, verifying the emily ect patient and procedure. The patient's procedural site was prepped and draped in the usual fashion. Local anesthetic was given subcutaneously to right groin region with Lidocaine 2%. Using a modified Seldinger technique, arterial access was obtained via the right femoral artery, a 4Fr sheath was inse rted. Left Coronary Artery selective angiography was performed in multiple views using a 4 Fr. JL5 c atheter. Right Coronary Artery selective angiography was then performed in multiple views using a 4 F r. 3DRC catheter. Left internal mammary artery graft to the LAD selective angiography was performed i n multiple views using a 4 Fr. 3DRC catheter. LV to AO pullback pressures were then recorded. Left Ventriculography was performed in NAVA projection using a 4 Fr. Pigtail catheter. LV to AO pullback pressures were then recordedThe images were reviewed and options discussed. A decision w as then made to proceed with an Intervention, IVUS or other adjunct procedure. Arterial sheath was exchanged for a 6 Fr, 45cm Sheath. EBU 3.75 Guide catheter was inserted and e ngaged into the LCA. BMW Guide wire was advanced to the Circumflex. BMW #2 Guide wire was advanced to the 1st OM. 2.0x12 Emerge Balloon catheter was advanced across lesion in the circumflex, mid. PTCA b alloon inflated at 6 atms for 12 secs. PTCA balloon inflated at 8 atms for 40 secs. 2.5 x 20 Synergy Drug Eluting stent was advanced across the lesion in the circumflex, mid. Angiogram performed post st ent deployment. Arterial sheath was exchanged for a 6 Fr, 11cm Sheath. The arterial sheath was pull ed and a Mynx closure device was deployed for hemostasis CORONARY ANGIOGRAPHY DOMINANCE: Right Dominant LEFT HEART ASSESSMENT Left Ventricular Ejection Fraction: by LV Gram 75 % Normal Left Ventricular systolic function Normal Left Ventricular End Diastolic Pressure Left Ventricular Hypertrophy Normal LV wall motion LEFT MAIN: Previously placed stent has an instent 30 % restenosis LEFT ANTERIOR DESCENDING ARTERY: OSTIAL LAD: 30 % Stenosis MID LAD: is occluded CIRCUMFLEX ARTERY: PROX CIRC: Mild luminal irregularities less than 30% MID CIRC: 85 % Stenosis DISTAL CIRC: Previously placed stent is patent RIGHT CORONARY ARTERY: PROX RCA: 65 % Stenosis GRAFTS: DANIEL graft to the LAD is patent Saphenous Vein graft to the 1st Diagonal is totally occluded Saphenous Vein graft to the 1st OM is totally occluded INTERVENTION INFORMATION LESION SITE: Circumflex (Mid) Lesion Complexity: High/C, lesion at bifurcation: No, thrombus present: No, lesion length: 20 mm, cul prit lesion: Yes Pre Stenosis: 85 % Pre intervention PETER flow: 3 PROCEDURE: Drug Eluting Stent with pre dilatation. Post Stenosis: 0 % Post intervention PETER flow: 3 Lesion Devices: Medtronic 6 Fr EBU3.75 100cm Guide Catheter Gracia .014 BMW Grayson Straight 190cm Oliver Sci EMERGE MR 2.00x12 BALLOON Gracia .014 BMW Grayson Straight 190cm Oliver Sci Synergy MR YASIR 2.50x20 COMPLICATIONS No Complications PROCEDURE MEDICATIONS Baby Aspirin (81mg) 1 Tabs PO @ 12/03/2018 07:38:33 Heparin 6000 unit(s) IV 12/03/2018 12:30:11 Nitro 200 mcg IC 12/03/2018 12:34:43 Nitro 200 mcg IC 12/03/2018 12:34:43 Nitro 200 mcg IC 12/03/2018 12:40:01 Plavix 75 mg PO 12/03/2018 07:38:38 IV Bolus: .9 NaCl 950 ml total 12/03/2018 12:57:48 IV Fluids: .9 NaCl IV started @ 200 ml/hr 12/03/2018 07:51:43 SUMMARY OF HEMODYNAMIC DATA Time AIR REST ECG 07:42:28 AO 153/51 (83) SA 12:06:48 LV 153/-14, 14 12:23:29 LV 154/-14, 15 12:23:36 LVp 148/-16, 8 12:23:44 AOp 151/50 (89) 12:23:49 AO 171/61 (105) 12:26:30 Signed By Claus Hatfield MD On 12/03/2018 1:48:47 PM Claus Hatfield MD
[2018-12-03 14:21] LABS: Bedside Glucose 128 mg/dL (70-110)
[2018-12-03 15:21] LABS: ACT Activated Clotting Time 191 sec (74-137)
[2018-12-03] MEDS: Insulin Lispro 100 UNIT/ML INSULN.PEN 14 UNIT SC (17:00)
[2018-12-03] MEDS: Carvedilol 25 MG Tablet PO (21:51)
[2018-12-03] MEDS: Levothyroxine 75 MCG Tablet PO (21:51)
[2018-12-03] MEDS: QUEtiapine 100 MG Tablet PO (21:51)
[2018-12-03 22:00] LABS: Bedside Glucose 123 mg/dL (70-110)
[2018-12-03] MEDS: amLODIPine 5 MG Tablet PO (22:22)
[2018-12-03] MEDS: Isosorbide Mononitrate 60 MG Tablet PO (22:22)
[2018-12-03] MEDS: morphine (oral solution) 10MG/0.5ML Syringe 6 MG PO (22:33)
[2018-12-03] MEDS: cycloBENZAPRine HCl 10 MG Tablet PO (23:49)
[2018-12-04] VITALS (14 sets, daily range): BP systolic 90–144; BP diastolic 26–84; PULSE 58–71; RESP 13–16; TEMP 36.6–36.7; O2SAT 92–98
[2018-12-04 04:40] LABS: Hematocrit 35.1 % (37-47); Hemoglobin 11.4 g/dl (12.0-15.0); Mean Corp Hgb Conc 32.5 g/gl (32-36); Mean Corpuscular Hgb 26.2 pg (27.0-32.0); Mean Corpuscular Volume 80.7 fL (81-99); Mean Platelet Vol. 9.8 fl (6.2-12.0); Platelet Count 204 K/mm3 (150-450); RBC Distribution Width CV 15.3 % (11.6-14.6); RBC Distribution Width SD 44.5 fl (35.1-43.9); Red Blood Count 4.35 M/mm3 (4.2-5.4); White Blood Count 5.9 K/mm3 (4.4-11.0)
[2018-12-04 04:41] LABS: Scan Indicated on CBC? Y/N NO
[2018-12-04 05:00] LABS: Anion Gap 7 (5-15); BUN 36 mg/dL (7-18); Calcium,Total 8.4 mg/dL (8.5-10.1); Chloride 115 mmol/L (98-107); Cholesterol 164 mg/dL (200); Creatinine, Serum 1.24 mg/dL (0.55-1.02); EST Glomerular Filtration Rate 45 mL/min (>60); Est Glom Filt Rate - Afr Amer 55 mL/min (>60); Estimated Creatinine Clearance 35.93 ml/min; Glucose 81 mg/dL (74-106); High Density Lipoprotein 39 mg/dL; Potassium 4.4 mmol/L (3.5-5.1); Sodium Level 145 mmol/L (136-145); Triglycerides 242 mg/dL; Very Low Density Lipoprotein 48 mg/dL (5-40)
[2018-12-04 06:45] LABS: Bedside Glucose 107 mg/dL (70-110)
--- NOTE | 2018-12-04 08:24 | DCINST_ITS ---
Discharge Diet: Low fat/ Low Cholesterol Discharge Activity: Return to Normal Activity May shower in (days): 1 Lifting Restrictions: 10 pounds and also avoid any pushing or pulling for 3 days after your test. Additional Activity Instructions:: At your appt on the , we will discuss if we need to consider additional testing to see if you need an additional stent. You need to stay on your plavix for at least one year prior to stopping for any reason. Call your doctor if your incision/area has: Continuous Slow Oozing, Sudden Increased Bleeding, Increased Pain/ Swelling, Increased Redness, Foul Smelling Discharge, Swelling at the incision site Call your doctor if you observe: Fever of 101 or Higher, Shortness of breath, Chest pain Remove Dressing in (days):: 1 Cleanse incision/area with: Soap & Water Allergies/Adverse Reactions: Allergies atorvastatin calcium [From Lipitor] Allergy (Verified 12/02/18 07:27) Unknown bupropion HCl [From Wellbutrin] Allergy (Verified 12/02/18 07:27) Unknown mannitol [From Reclast] Allergy (Verified 12/02/18 07:27) joint pain, unable to breathe, unable to walk propoxyphene napsylate [From Darvocet-N 100] Allergy (Verified 12/02/18 07:27) Unknown Quinolones Allergy (Verified 12/02/18 07:27) Unknown Tetanus Vaccines and Toxoid [Tetanus Vaccines & Toxoid] Allergy (Verified 12/02/18 07:27) Chest tightness tizanidine Allergy (Verified 12/02/18 07:27) Unknown zoledronic acid [From Reclast] Allergy (Verified 12/02/18 07:27) joint pain,unable to breathe, unaable to walk JOINT PAIN,UNABLE TO BREATHE,UNABLE TO WALK pravastatin Adverse Reaction (Severe, Verified 12/02/18 07:27) Myalgias gemfibrozil Adverse Reaction (Intermediate, Verified 12/02/18 07:27) Unknown NSAIDS (Non-Steroidal Anti-Inflamma Adverse Reaction (Verified 12/02/18 07:27) Other Medications to take at Discharge Aspirin [Aspirin, Baby] 81 mg PO DAILY@0800 03/10/17 Levothyroxine Sodium [Levoxyl] 75 mcg PO QHS 03/10/17 Nitroglycerin (INPATIENT USE) [Nitrostat] 0.4 mg SUBLINGUAL Q5M PRN 03/10/17 Pantoprazole Sodium [Protonix] 40 mg PO DAILY 03/10/17 Pravastatin Sodium 40 mg PO DAILY 03/10/17 Ergocalciferol [Vitamin D] 50,000 unit PO Q7D cap 07/08/17 Insulin Detemir [Levemir FlexPen] 30 units SC BID 07/25/17 amlodipine 5 mg tablet 5 mg PO QHS tab 05/05/18 allopurinol 100 mg tablet 100 mg PO DAILY 05/08/18 hydroxyzine HCl 50 mg tablet 25 mg PO TID-QID PRN tab 05/08/18 insulin aspart (U-100) 100 unit/mL (3 mL) subcutaneous pen 14 unit SC TIDAC ml 05/08/18 quetiapine 50 mg tablet 100 mg PO QHS tab 05/08/18 Morphine Sulfate 3 ml PO DAILY 06/07/18 Lisinopril [Zestril] 10 mg PO DAILY 06/11/18 Lipase/Protease/Amylase [Creon Dr 24,000 Units Capsule] 1 tab PO BREAKFAST 06/18/18 isosorbide mononitrate ER 60 mg tablet,extended release 24 hr 60 mg PO BID #180 tab 06/24/18 carvedilol 25 mg tablet 25 mg PO BID #180 tab 07/24/18 clopidogrel 75 mg tablet 75 mg PO DAILY #90 tab 10/01/18 bisacodyl 10 mg rectal suppository 10 mg RC DAILY PRN 11/24/18 cyclobenzaprine 10 mg tablet 10 mg PO HS PRN 11/24/18 dicyclomine 10 mg capsule 10 mg PO BID PRN 11/24/18 glucagon (human recombinant) 1 mg solution for injection 1 mg IM ONCE PRN 11/24/18 ipratropium bromide 0.03 % nasal spray 2 spray INTRANASAL .COMPLEX 11/24/18 levomefolate Ca 3 mg-B6 35 mg-meB12 2 mg-algal oil 90.314 mg capsule 1 cap PO DAILY cap 11/24/18 linaclotide 72 mcg capsule 72 mcg PO DAILY 11/24/18 menthol 0.44 %-zinc oxide 20.6 % topical ointment 1 applic TOPICAL 4-6XD 11/24/18 metoclopramide 5 mg tablet 5 mg PO QAC PRN 11/24/18 polyethylene glycol 3350 17 gram/dose oral powder 17 g PO BID 11/24/18 promethazine 6.25 mg/5 mL oral syrup 6.25 mg PO Q6H PRN 11/24/18 Orders to be completed after discharge: Phase II, Outpatient Cardiac Rehab Location: None Selected Primary Care Physician: Con Johnson MD [Primary Care Provider] - Test Results: Test results from this visit will be discussed in further detail at your follow- up appointment, if applicable. Please Follow Up With: Maribell Chau PA When: 12/16 at 1100 Cardiac Rehabilitation Info Cardiac Rehabilitation Program Information: Cardiac Rehabilitation is important for patients like you who are recovering from a heart problem. Cardiac rehabilitation programs are recognized as integral to the continued care of the patient with coronary heart disease. The cardiac rehabilitation program is designed to optimize a patient's physical, psychological, and social functioning. Health assurance services manager health care work in cardiac rehabilitation programs and assist you with getting the treatments you need to get stronger and healthier - like exercise, healthy eating habits, and medications. Cardiac rehabilitation has been show to help people with heart problems live longer and have better life enjoyment than people who do not go to cardiac rehabilitation. Please contact the Cardiac Rehabilitation Program at [facility] at in two weeks if you have not heard from them.
[2018-12-04] MEDS: Insulin Lispro 100 UNIT/ML INSULN.PEN 14 UNIT SC (08:30)
[2018-12-04] MEDS: Clopidogrel Bisulfate 75 MG Tablet PO (08:32)
[2018-12-04] MEDS: Polyethylene Glycol 3350 17 GM PACKET PO (08:33)
[2018-12-04] MEDS: Isosorbide Mononitrate 60 MG Tablet PO (08:35)
[2018-12-04] MEDS: Lisinopril 10 MG Tablet PO (08:39)
[2018-12-04] MEDS: Carvedilol 25 MG Tablet PO (08:39)
[2018-12-04] MEDS: Pantoprazole Sodium 40 MG Tablet PO (08:39)
[2018-12-04] MEDS: Aspirin E.C. 81 MG Tablet PO (08:39)
[2018-12-04 08:40] LABS: Bedside Glucose 107 mg/dL (70-110)
--- NOTE | 2018-12-04 08:44 | CRPHASE1_ITS ---
Patient Communication Former Patient:: Phase II PHII Cardiac Rehab Discussed with Patient:: Yes Guide to Cardiac Rehab Given to Patient:: Yes Cardiac Rehab Facility Choice List Given to Patient:: Yes Choice Program [facility] PHII:: Communication Given to CR, Refer to [facility] Choice Program Other:: Communication Given to CR, With permission faxed order and referral information Volunteer Fire Fighter:: Claus Hatfield Sessions:: 36 sessions - 3 days/wk, 12 weeks Risk Factors/Lifestyle Smoking Status: Never smoker Hx Hypertension: Yes Hx Diabetes Mellitus Type 1: No Hx Diabetes Mellitus Type 2: Yes Hx Metabolic Disorders: Yes Hx Dyslipidemia: Yes Hx Obesity: No - bmi 29.7 Height: 5 ft 4 in Post-Menopausal: Yes Risk Factor for Sedentary Lifestyle: Highest Risk Family History: Family History (Last Reviewed 11/24/18 @ 14:54 by Madison Alicea) Mother Cancer CVA (cerebral vascular accident) CAD (coronary artery disease) Father CAD (coronary artery disease) History of coronary artery bypass graft Sister CAD (coronary artery disease) Multiple sclerosis Family History: Diabetes, High Cholesterol, Heart Disease, Hypertension Past Cardiac Illness: Coronary Artery Disease, Previous PCI w/Stent, Coronary Artery Bypass Graft Laboratory Values: Cardiac Rehab Phase I Labs Triglycerides 242 mg/dL (-199) H 12/04/18 04:30 Cholesterol 164 mg/dL (200) 12/04/18 04:30 77 mg/dL (0-130) 12/04/18 04:30 39 mg/dL (40-) L 12/04/18 04:30 Phase I Education Given On:: [place], Nutrition, Antiplatelet medication, Diabetes - Type II Issues Affecting Care:: None Knowledge of Condition:: Yes Learning Preferences: Verbal, Written - NOT INTERESTED IN CR D/T AMPUTATED TOES. DID CR PREVIOUSLY AND HAD TO QUIT Medical/Surgical History CT:: No CAD:: Yes Cardiomyopathy:: No Diabetes:: Yes Diabetes Type I:: No Diabetes Type II:: Yes Hypertension:: Yes Dyslipidemia:: Yes Arrhythmias:: Yes - CHRONIC ATRIAL FIB PVD:: Yes GERD:: Yes Thyroid:: Yes - HYPOTHYROIDISM CABG: Yes PTCA:: Yes Discharge/Home/Social Eval Discharge Disposition: Home Cardiac Rehabilitation Info Cardiac Rehabilitation Program Information: Cardiac Rehabilitation is important for patients like you who are recovering from a heart problem. Cardiac rehabilitation programs are recognized as integral to the continued care of the patient with coronary heart disease. The cardiac rehabilitation program is designed to optimize a patient's physical, psychological, and social functioning. Health insurance healthcare representative work in cardiac rehabilitation programs and assist you with getting the treatments you need to get stronger and healthier - like exercise, healthy eating habits, and medications. Cardiac rehabilitation has been show to help people with heart problems live longer and have better life enjoyment than people who do not go to cardiac rehabilitation. Please contact the Cardiac Rehabilitation Program at [facility] at in two weeks if you have not heard from them.
--- NOTE | 2018-12-04 08:57 | CRPH1.INSTRU ---
General Education CAD and cardiac anatomy and function:: Patient communicates acknowledgment Explanation of diagnoses and procedures:: Patient communicates acknowledgment Sign/Symptoms of DC:: Patient communicates acknowledgment Antiplatelet therapy: Patient communicates acknowledgment Proper use of NTG-SL: Not instructed Emergency procedures and activation of EMS: Patient communicates acknowledgment Compliance of all prescribed medications: Patient communicates acknowledgment Smoking Patient Nicotine/Smoking Risk Factors Are:: Never smoked
--- NOTE | 2018-12-04 09:30 | CRPH1.INSTRU ---
General Education CAD and cardiac anatomy and function:: Patient communicates acknowledgment Explanation of diagnoses and procedures:: Patient communicates acknowledgment Sign/Symptoms of LA:: Patient communicates acknowledgment Antiplatelet therapy: Patient communicates acknowledgment Proper use of NTG-SL: Patient communicates acknowledgment Emergency procedures and activation of EMS: Patient communicates acknowledgment Compliance of all prescribed medications: Patient communicates acknowledgment Smoking Patient Nicotine/Smoking Risk Factors Are:: Never smoked Dyslipidemia Patient Dyslipidemia Risk Factors Are:: Total Cholesterol, Triglycerides, HDL, LDL Recommendations Include:: Lipid profile provided, Reviewed NCEP/ATP guidelines, Therapeutic Lifestyle Change dietary guidelines Dyslipidemia Response Code:: Patient communicates acknowledgment Overweight/Obesity Patient Overweight/Obesity Risk Factors Are:: Overweight = 26-29 Recommendations Include:: Weight loss of 5-10%, Reduced calorie diet, Exercise 5-7 times/week Overweight/Obesity:: Patient communicates acknowledgment Hypertension Recommendations Include:: BP <130/80 if diabetic, DASH dietary guidelines, Decrease/maintain normal body weight, Moderation of ETOH Hypertension:: Patient communicates acknowledgment Heart Disease Patient Heart Disease Risk Factors Are:: Previous cardiac event Heart Disease Response Code:: Patient communicates acknowledgment Diabetes Patient Diabetes Risk Factors Are:: Elevated blood sugars Date of HgbA1c:: 11/17/18 - 7.8 Recommendations Include:: Maintain fasting blood sugars 70-110 md/dL, Maintain HgbA1c of 6% or less, Monitor blood sugar as prescribed, Diabetic dietary guidelines, Decrease/maintain body weight Diabetes:: Patient communicates acknowledgment Metabolic Syndrome Patient Metabolic Syndrome Risk Factors Are [3 of 5]:: Fasting blood sugar > 100 mg/dL, Waist circumference > 35 [female] or 40 [male], High triglyceride >150, Hypertension, Low HDL <40 [male] or < 50 [female] Recommendations Include:: Reinforce compliance to risk factor modifications, Patient is diabetic, Encouraged follow-up with Primary Care Physician Metabolic Syndrome Response Code:: Patient communicates acknowledgment, Family communicates acknowledgment Sedentary Patient Sedentary Risk Factors Are:: Lack of regular exercise Recommendations Include:: Aerobic exercise 5-7 times/week for 20-30 minutes continuously, Benefits of regular exercise, Discussed home walking program, Monitored Outpatient Cardiac Rehab Sedentary Response Code:: Patient communicates acknowledgment Stress Recommendations Include:: Identification of stressors, and assessment of coping skills, Stress management techniques Stress Response Code:: Patient communicates acknowledgment
--- NOTE | 2018-12-04 09:38 | PN.CARD_ITS ---
Subjectve: Patient doing very well this morning, no 24-hour events. Telemetry negative. EKG shows normal sinus rhythm, no acute changes. Hemoglobin and creatinine are within nominal limits. Right groin is clean/dry/intact without evidence of thrills, bruits or hematoma. She has 2+ DP and PT pulses bilaterally. Objective: Vital Signs Temp Pulse Resp BP Pulse Ox 98.0 F 66 15 144/46 H 94 12/04/18 00:00 12/04/18 07:45 12/04/18 07:00 12/04/18 07:00 12/04/18 07:00 Oxygen Delivery Method Room Air Weight: 182 lb 5.156 oz Body Mass Index (BMI) 31.3 Finger Stick Blood Glucose 193 Intake and Output for Last 24 Hours 12/02/18 12/03/18 12/04/18 23:59 23:59 23:59 Intake Total 1599 / 1599 160 / 160 Output Total 1450 / 1450 300 / 300 Balance 149 / 149 -140 / -140 General: Awake, Alert, Oriented x 3 HEENT: PERRL, EOMI, Sclera Non Icteric Neck: Supple, Good ROM, No Lymph Node Enlargement Lungs: Clear to auscultation Cardiovascular: Regular Rhythm, Normal S1, Normal S2, No Murmurs, No Rubs, No Gallops Vascular: No Carotid Bruits, Normal Femoral Pulses, Normal Radial Pulses, Normal Dorsalis Pedal Pulse, Normal Posterior Tibial Pulses Abdomen: Bowel Sounds Present, Soft, Non Tender, No HSM, No Organomegaly Extremities: No Cyanosis, No Clubbing, No edema Neurological: No Focal Motor or Sensory Deficit 12/04/18 04:30: WBC 5.9, RBC 4.35, Hgb 11.4 L, Hct 35.1 L, MCV 80.7 L, MCH 26.2 L, MCHC 32.5, RDW 15.3 H, RDW Differential 44.5 H, Plt Count 204, MPV 9.8 12/04/18 04:30: Sodium 145, Potassium 4.4, Chloride 115 H, Carbon Dioxide 23.0, Anion Gap 7, BUN 36 H, Creatinine 1.24 H, Est GFR (MDRD) Af Amer 55 L, Est GFR (MDRD) Non-Af 45 L, BUN/Creatinine Ratio 29.0 H, Glucose 81, Calcium 8.4 L, Triglycerides 242 H, Cholesterol 164, LDL Cholesterol 77, VLDL Cholesterol 48 H, HDL Cholesterol 39 L Rhythm: EKG: ECHO: Stress Test: Cardiac Cath: PCI: CT Surgery: Holter monitor: EPS: PPM: CXR: Chest CT Scan: Medical Necessity - Tobacco Use Smoking Status: Never smoker Assessment/Plan 1. Coronary disease: The patient underwent successful Yuliya plasty and drug- eluting stenting to the mid left circumflex between her left main stent and distal obtuse marginal stents. Patient had identical chest pain during inflation as she has had at home. Recommend continue lifelong baby aspirin and Plavix. She has somewhat difficult challenges with exercise given her Charcot's foot on the left side, so whatever cardiac rehab she is able to do I am completely fine with. In the meantime she will continue current antihypertensive medications and follow-up with either myself or Dr. South in the office. 2. Hyperlipidemia: Continue Pravachol therapy. 3. Patient will be discharged home. Code Visit Inpatient E&M: 53587 Subs Hosp L2
--- NOTE | 2018-12-04 10:00 | EKG12_ITS ---
Test Reason : AM Blood Pressure : / mmHG Vent. Rate : 062 BPM Atrial Rate : 062 BPM P-R Int : 210 ms QRS Dur : 090 ms QT Int : 446 ms P-R-T Axes : 068 -29 080 degrees QTc Int : 452 ms Sinus rhythm with marked sinus arrhythmia with 1st degree A-V block Otherwise normal ECG When compared with ECG of 03-DEC-2018 13:36, MANUAL COMPARISON REQUIRED, DATA IS UNCONFIRMED Confirmed by MIGUEL ANGEL ANAYA, FADI ([id number]), metropolitan editor DINESH REYES ([id number]) on 12/05/2018 12:42:28 PM Referred By: Claus Hatfield Confirmed By:POLLY MICHELLE MD
--- NOTE | 2018-12-04 10:27 | NURSING ---
discharged with instructions in care of per wheelchair
== END 2018-12-04 09:40 | disposition home or self-care (01) ==
LOC: CLSP 07:05 → ICU 12:43
PROVIDERS: Family Provider Family Medicine; PCP Family Medicine; Referring Provider Internal Medicine Cardiovascular Disease; Visit Provider Internal Medicine Cardiovascular Disease
DX: I25.110 Atherosclerotic heart disease of native coronary artery with unstable angina pectoris (principal); E11.610 Type 2 diabetes mellitus with diabetic neuropathic arthropathy; I48.91 Unspecified atrial fibrillation; I10 Essential (primary) hypertension; E78.2 Mixed hyperlipidemia; E03.9 Hypothyroidism, unspecified; D50.9 Iron deficiency anemia, unspecified; I73.9 Peripheral vascular disease, unspecified; G89.29 Other chronic pain; Z79.02 Long term (current) use of antithrombotics/antiplatelets; Z79.82 Long term (current) use of aspirin; Z79.4 Long term (current) use of insulin; Z79.899 Other long term (current) drug therapy; Z86.73 Personal history of transient ischemic attack (TIA), and cerebral infarction without residual deficits; Z98.84 Bariatric surgery status; Z95.1 Presence of aortocoronary bypass graft; Z95.5 Presence of coronary angioplasty implant and graft
CPT/HCPCS: 36415; 80048; 80061; 80076; 82962; 85025; 85027; 85347; 85610; 92928; 93005; 93458; C1760; J0153; J7030; J7040; Q9967; C1725; C1769; C1874; C1887; C1894; C9600

== ENCOUNTER → 2018-12-16 11:53 | Outpatient (CLI) | payer MEDICARE, OTHER, SELFPAY ==
[2018-12-16 09:36] VITALS: BMI 30.9
[2018-12-16 13:07] LABS: Anion Gap 8 (5-15); BUN 31 mg/dL (7-18); BUN/Creat Ratio 26.3 RATIO (10-20); Calcium,Total 8.9 mg/dL (8.5-10.1); Chloride 108 mmol/L (98-107); Creatinine, Serum 1.18 mg/dL (0.55-1.02); EST Glomerular Filtration Rate 48 mL/min (>60); Est Glom Filt Rate - Afr Amer 58 mL/min (>60); Glucose 239 mg/dL (74-106); Potassium 5.1 mmol/L (3.5-5.1); Sodium Level 140 mmol/L (136-145)
== END ==
PROVIDERS: Family Provider Family Medicine; PCP Family Medicine; Referring Provider Physician Assistant Medical; Visit Provider Physician Assistant Medical
DX: I25.10 Atherosclerotic heart disease of native coronary artery without angina pectoris (principal)
CPT/HCPCS: 36415; 80048

== ENCOUNTER 2018-12-24 08:58 | Day surgery (SDC) | payer MEDICARE, OTHER, SELFPAY ==
[2018-12-16 09:36] VITALS: BMI 30.9
[2018-12-24 09:17] VITALS: BMI 31.2
[2018-12-24 10:41] LABS: ACT Activated Clotting Time 213 sec (74-137)
--- NOTE | 2018-12-24 10:48 | CL.I_ITS ---
Patient Name: SEBASTIÁN REYES Study Date: 12/24/2018 Performing: Claus Hatfield MD Ht: 64.17 inches 163 cm : 1945 Wt: 182.39 lbs 82.73 kg Age: 73 Gender: female BSA: 1.88 PROCEDURE(S) PERFORMED UG82-TUT/COR TG32-RCG, CORONARY OR GRAFT, INITIAL VESSEL CLINICAL PROFILE AND CO-MORBIDITIES Indications: New Onset Angina <= 2 months, Stable Known CAD Heart Failure: None Stress/Imaging Date: 01/15/2018 Stress Echocardiogram: Negative Angina Classification Anginal Classification w/in 2 Weeks: CCS II CAD Presentations: Unstable angina. Comorbidities/Risk Factors: Hypertension Dyslipidemia Diabetes Mellitus: Diabetes Therapy: Oral CONCLUSIONS FFR of RCA=0.97, negative, left for medical management. RECOMMENDATIONS Highly recommend quitting all tobacco products Follow up with primary corrective and manual arts therapist Risk factor modification ASA Indefinitley Plavix for at least 12 months Routine post interventional care Refer for Outpatient Cardiac Rehab Manual sheath removal per protocol Follow up with Dr. Hatfield Successful Mynx Control closure of RFA. DESCRIPTION OF PROCEDURE The patient arrived to the procedure lab. The risks and benefits of the procedure as well as a full d escription of our services here and current unavailability of surgical backup were fully explained to the patient and/or their significant other prior to the catheterization. The Timeout was completed, verifying the correct patient and procedure. The patient's procedural site was prepped and draped in the usual fashion. Local anesthetic was given subcutaneously to right groin region with Lidocaine 2%. Using a modified Seldinger technique, arterial access was obtained via the right femoral artery, a 4 Fr sheath was inserted. hs 11 Guide catheter was inserted and engaged into the RCA. ffr wire Guide wire was advanced to t he RCA. The FFR/iFR wire was inserted. FFR Ratio Baseline: 1.5 FFR Ratio post Adenosine: .97 Adenosin e was then given per protocol. Pressures and FFR/iFR were then recorded. The FFR/iFR wire was then re moved. Contrast was injected through the sheath and the Right Iliac and Femoral artery were assessed for possible closure device. The arterial sheath was pulled and a Mynx closure device was deployed fo r hemostasis INTERVENTION INFORMATION LESION SITE: RCA (Mid) Lesion Complexity: High/C Pre Stenosis: 65 % Pre intervention PETER flow: 3 PROCEDURE: FFR Post Stenosis: 65 % Post intervention PETER flow: 3 COMPLICATIONS No Complications PROCEDURE MEDICATIONS Oxygen: 2 L/min via nasal cannula Adenosine drip for FFR 23 ml IV @ 12/24/2018 10:29:01 Heparin 6000 unit(s) IV 12/24/2018 10:18:44 Nitro 300 mcg IC 12/24/2018 10:20:54 SUMMARY OF HEMODYNAMIC DATA Time AIR REST ECG 09:22:46 AO 143/52 (84) SA 10:19:49 10:46:55 Signed By Claus Hatfield MD On 12/24/2018 10:47:54 Claus Hatfield MD
== END 2018-12-24 15:05 | disposition home or self-care (01) ==
PROVIDERS: Family Provider Family Medicine; PCP Family Medicine; Referring Provider Internal Medicine Cardiovascular Disease; Visit Provider Internal Medicine Cardiovascular Disease
DX: I25.110 Atherosclerotic heart disease of native coronary artery with unstable angina pectoris (principal); E11.42 Type 2 diabetes mellitus with diabetic polyneuropathy; I10 Essential (primary) hypertension; E78.2 Mixed hyperlipidemia; E03.9 Hypothyroidism, unspecified; D50.9 Iron deficiency anemia, unspecified; I73.9 Peripheral vascular disease, unspecified; K21.9 Gastro-esophageal reflux disease without esophagitis; G89.29 Other chronic pain; Z79.02 Long term (current) use of antithrombotics/antiplatelets; Z79.4 Long term (current) use of insulin; Z79.82 Long term (current) use of aspirin; Z79.899 Other long term (current) drug therapy; Z86.73 Personal history of transient ischemic attack (TIA), and cerebral infarction without residual deficits; Z98.84 Bariatric surgery status; Z95.5 Presence of coronary angioplasty implant and graft; Z95.1 Presence of aortocoronary bypass graft
CPT/HCPCS: 85347; 93454; 93571; C1760; J0153; J7040; Q9967; C1769; C1887

== ENCOUNTER → 2019-02-23 14:34 | Outpatient (CLI) | payer MEDICARE, OTHER, SELFPAY ==
[2019-01-23 14:04] VITALS: BMI 31.2
[2019-02-23 17:25] LABS: Absolute Lymphocyte Count 1.78 X10^3/uL (0.83-4.51); Absolute Neutrophil Count 4.8 X10^3/uL (2.0-7.7); Basophil# 0.03 X10^3/uL; Basophil% 0.4 % (0-1); Eosinophil# 0.24 X10^3/uL; Eosinophils% 3.3 % (0-5); Hematocrit 37.3 % (37-47); Hemoglobin 11.5 g/dL (12.0-15.0); Lymphocyte # 1.78 X10^3/ul (4.0); Lymphocyte % 24.2 % (19-41); Mean Corp Hgb Conc 30.8 g/dL (32-36); Mean Corpuscular Hgb 25.7 pg (27.0-32.0); Mean Corpuscular Volume 83.3 fL (81-99); Mean Platelet Vol. 10.6 fl (6.2-12.0); Monocyte% 6.8 % (0-10); NRBC Flagged by Analyzer 0 % (0-5); Neutrophil # 4.77 X10^3/uL (2.7-7.7); Neutrophil % 64.9 % (47-70); Platelet Count 245 K/mm3 (150-450); RBC Distribution Width CV 15.3 % (11.6-14.6); Red Blood Count 4.48 M/mm3 (4.2-5.4); White Blood Count 7.4 K/mm3 (4.4-11.0)
[2019-02-23 17:46] LABS: Vitamin B12 > 2000 pg/mL (211-911); Vitamin D,25 Hydroxy 34.9 ng/mL (29.95-100.01)
[2019-02-23 18:21] LABS: AST(SGOT) 13 U/L (15-37); Alanine Aminotransfer ALT/SGPT 23 U/L (13-56); Albumin, Serum 3.5 g/dL (3.2-5.0); Alkaline Phosphatase 91 U/L (45-117); Anion Gap 8 (5-15); BUN 38 mg/dL (7-18); BUN/Creat Ratio 18.4 RATIO (10-20); Calcium,Total 8.5 mg/dL (8.5-10.1); Chloride 116 mmol/L (98-107); Creatinine, Serum 2.06 mg/dL (0.55-1.02); EST Glomerular Filtration Rate 25 mL/min (>60); Est Glom Filt Rate - Afr Amer 31 mL/min (>60); Ferritin 8 ng/mL (8-252); Folates, (Folic Acid) > 100.00 ng/mL (3.1-55.4); Globulin 3.6 g/dL (2.2-4.2); Glucose 198 mg/dL (74-106); Potassium 5.2 mmol/L (3.5-5.1); Protein, Total 7.1 g/dL (6.4-8.2); Sodium Level 142 mmol/L (136-145)
== END ==
PROVIDERS: Family Provider Family Medicine; PCP Family Medicine; Referring Provider Family Medicine; Visit Provider Family Medicine
DX: I10 Essential (primary) hypertension (principal); D51.0 Vitamin B12 deficiency anemia due to intrinsic factor deficiency
CPT/HCPCS: 36415; 80053; 82306; 82607; 82728; 82746; 85025

== ENCOUNTER → 2019-04-30 15:26 | Outpatient (CLI) | payer MEDICARE, OTHER, SELFPAY ==
[2019-04-07 16:44] VITALS: BMI 31.2
[2019-04-30 18:04] LABS: AST(SGOT) 14 U/L (15-37); Alanine Aminotransfer ALT/SGPT 18 U/L (13-56); Albumin, Serum 3.5 g/dL (3.2-5.0); Alkaline Phosphatase 93 U/L (45-117); Anion Gap 9 (5-15); BUN 40 mg/dL (7-18); BUN/Creat Ratio 19.8 RATIO (10-20); Calcium,Total 8.1 mg/dL (8.5-10.1); Chloride 112 mmol/L (98-107); Creatinine, Serum 2.02 mg/dL (0.55-1.02); EST Glomerular Filtration Rate 26 mL/min (>60); Est Glom Filt Rate - Afr Amer 31 mL/min (>60); Globulin 3.4 g/dL (2.2-4.2); Glucose 123 mg/dL (74-106); Potassium 4.7 mmol/L (3.5-5.1); Protein, Total 6.9 g/dL (6.4-8.2); Sodium Level 139 mmol/L (136-145)
[2019-04-30 18:06] LABS: Hemoglobin A1c 6.7 % (4.2-6.3)
== END ==
PROVIDERS: Family Provider Family Medicine; PCP Family Medicine; Referring Provider Family Medicine; Visit Provider Family Medicine
DX: E11.39 Type 2 diabetes mellitus with other diabetic ophthalmic complication (principal)
CPT/HCPCS: 36415; 80053; 83036

== ENCOUNTER → 2019-06-17 12:10 | Outpatient (CLI) | payer MEDICARE, OTHER, SELFPAY ==
[2019-04-07 16:44] VITALS: BMI 31.2
[2019-06-17 14:16] LABS: Absolute Lymphocyte Count 1.62 X10^3/uL (0.83-4.51); Absolute Neutrophil Count 4.2 X10^3/uL (2.0-7.7); Basophil# 0.03 X10^3/uL; Basophil% 0.5 % (0-1); Eosinophil# 0.16 X10^3/uL; Eosinophils% 2.4 % (0-5); Hematocrit 36.9 % (37-47); Hemoglobin 11.1 g/dL (12.0-15.0); Lymphocyte # 1.62 X10^3/ul (4.0); Lymphocyte % 24.4 % (19-41); Mean Corp Hgb Conc 30.1 g/dL (32-36); Mean Corpuscular Hgb 25.2 pg (27.0-32.0); Mean Corpuscular Volume 83.7 fL (81-99); Mean Platelet Vol. 11.6 fl (6.2-12.0); NRBC Flagged by Analyzer 0 % (0-5); Neutrophil # 4.19 X10^3/uL (2.7-7.7); Neutrophil % 63.2 % (47-70); POSITIVE COUNT YES; Platelet Count 170 K/mm3 (150-450); RBC Distribution Width CV 15.3 % (11.6-14.6); RBC Distribution Width SD 46.6 fl (35.1-43.9); Red Blood Count 4.41 M/mm3 (4.2-5.4); White Blood Count 6.6 K/mm3 (4.4-11.0)
[2019-06-17 14:41] LABS: AST(SGOT) 37 U/L (15-37); Alanine Aminotransfer ALT/SGPT 26 U/L (13-56); Albumin, Serum 3.3 g/dL (3.2-5.0); Alkaline Phosphatase 105 U/L (45-117); Anion Gap 4 (5-15); BUN 35 mg/dL (7-18); Calcium,Total 8.8 mg/dL (8.5-10.1); Chloride 114 mmol/L (98-107); EST Glomerular Filtration Rate 39 mL/min (>60); Est Glom Filt Rate - Afr Amer 48 mL/min (>60); Ferritin 14 ng/mL (8-252); Globulin 3.4 g/dL (2.2-4.2); Glucose 137 mg/dL (74-106); Potassium 5.6 mmol/L (3.5-5.1); Protein, Total 6.7 g/dL (6.4-8.2); Sodium Level 141 mmol/L (136-145); Thyroid Stim Hormone (TSH) 0.98 uIU/mL (0.358-3.74)
[2019-06-17 14:51] LABS: Vitamin B12 1177 pg/mL (211-911)
[2019-06-17 14:53] LABS: Differential Indicated SCAN CRITERIA MET
[2019-06-17 14:54] LABS: Anisocytosis 1+; Platelet Estimate ADEQUATE (ADEQ); Red Cell Morphology N CHROM NORMAL (NORM C&C)
[2019-06-17 14:57] LABS: Hemoglobin A1c 7.2 % (4.2-6.3)
== END ==
PROVIDERS: PCP Family Medicine; Referring Provider Family Medicine; Visit Provider Family Medicine
DX: E11.39 Type 2 diabetes mellitus with other diabetic ophthalmic complication (principal); D64.9 Anemia, unspecified
CPT/HCPCS: 36415; 80053; 82607; 82728; 83036; 84443; 85025

== ENCOUNTER → 2019-06-18 14:53 | Outpatient (CLI) | payer MEDICARE, OTHER, SELFPAY ==
[2019-06-18 14:02] VITALS: BMI 30.9
[2019-06-18 16:15] LABS: Anion Gap 3 (5-15); BUN 24 mg/dL (7-18); BUN/Creat Ratio 17.5 RATIO (10-20); Calcium,Total 8.9 mg/dL (8.5-10.1); Chloride 112 mmol/L (98-107); Creatinine, Serum 1.37 mg/dL (0.55-1.02); EST Glomerular Filtration Rate 40 mL/min (>60); Est Glom Filt Rate - Afr Amer 49 mL/min (>60); Glucose 177 mg/dL (74-106); Potassium 4.9 mmol/L (3.5-5.1); Sodium Level 140 mmol/L (136-145)
== END ==
PROVIDERS: PCP Family Medicine; Referring Provider Family Medicine; Visit Provider Family Medicine
DX: D64.9 Anemia, unspecified (principal)
CPT/HCPCS: 36415; 80048

== ENCOUNTER → 2019-07-02 13:27 | Outpatient (CLI) | payer MEDICARE, OTHER, SELFPAY ==
[2019-06-18 14:02] VITALS: BMI 30.9
[2019-07-02 14:53] LABS: AST(SGOT) 21 U/L (15-37); Alanine Aminotransfer ALT/SGPT 23 U/L (13-56); Albumin, Serum 3.3 g/dL (3.2-5.0); Alkaline Phosphatase 104 U/L (45-117); Bilirubin, Direct 0.08 mg/dL (0.00-0.30); Cholesterol 137 mg/dL (200); Globulin 3.9 g/dL (2.2-4.2); High Density Lipoprotein 39 mg/dL; Protein, Total 7.2 g/dL (6.4-8.2); Triglycerides 246 mg/dL; Very Low Density Lipoprotein 49 mg/dL (5-40)
== END ==
PROVIDERS: PCP Family Medicine; Referring Provider Internal Medicine Cardiovascular Disease; Visit Provider Internal Medicine Cardiovascular Disease
DX: E78.5 Hyperlipidemia, unspecified (principal); I25.10 Atherosclerotic heart disease of native coronary artery without angina pectoris
CPT/HCPCS: 36415; 80061; 80076

== ENCOUNTER → 2019-07-03 12:33 | Outpatient (CLI) | payer MEDICARE, OTHER, SELFPAY ==
[2019-06-18 14:02] VITALS: BMI 30.9
--- NOTE | 2019-07-03 12:33 | STE_ITS ---
Reason For Study: CHEST PAIN Stress Results Protocol: Dobutatmine Stress Echo Maximum Predicted HR: 148 bpm Target HR: 126 bpm % Maximum Predicted HR: 87 % DurationHeart Rate Stage (mm:ss) (bpm) BP Dose Comment BASELINE 70 147/65 DSE- 10 MCG 3:21 65 157/86 10.00NO SX DSE- 20 MCG 3:11 88 191/73 20.00NO SX DSE- 30 MCG 3:15 110 180/77 30.00ATROPINE 0.25 MG IVP GIVEN @ 1325 DSE- 40 MCG 1:37 129 164/27434.00L SHOULDER PAIN 4/ RECOVERY 92 134/67 PAIN SUBSIDED Stress Duration: 11:24 mm:ss Maximum Stress HR: 129 bpm Baseline Echocardiogram Findings The estimated ejection fraction is 65 %. Stress Echo Wall motion Data Resting WM Intermediate WM Stress WM Resting Wall Motion Wall Motion Stress No regional wall motion No regional wall motion abnormalities noted. abnormalities noted. EKG Data The baseline ECG displays normal sinus rhythm. The patient was titrated from 10 mcg to a maximum of 40 mcg of dobutamine during the stress. The maximum heart rate attained was 130 beats per minute. This was 87% of maximum predicted heart rate. During dobutamine infusion, there were no ST or T wave changes noted to suggest ischemia. No clinical angina was noted. Interpretation Summary The estimated ejection fraction is 65 %. Normal, adequate, dobutamine echocardiogram. Negative for ischemia by EKG and echocardiographic criteria. No anginal symptoms noted. Rare PVCs noted. Test terminated due to the attainment of target heart rate. Hypertensive blood pressure response to dobutamine. Final LVEF is 75%. Baseline LV outflow tract gradient of 20 mmHg, peak LV outflow tract gradient of 65 mmHg but no evidence of Harshal. Patient tolerated procedure well. No complications. Ordering Physician: Claus Hatfield Referring Physician: Claus Hatfield Performed By: Gaby Bowman RDCS
== END ==
LOC: CVS 12:33
PROVIDERS: PCP Family Medicine; Referring Provider Internal Medicine Cardiovascular Disease; Visit Provider Internal Medicine Cardiovascular Disease
DX: I25.10 Atherosclerotic heart disease of native coronary artery without angina pectoris (principal); R07.9 Chest pain, unspecified
CPT/HCPCS: 93017; 93350; J7040; Q9957; A4216

== ENCOUNTER 2019-09-21 14:57 | Emergency (ER) | payer MEDICARE, OTHER, SELFPAY ==
[2019-06-18 14:02] VITALS: BMI 30.9
[2019-09-21 14:59] VITALS: BP 155/62; PULSE 82; RESP 16; TEMP 36.4; O2SAT 98; BMI 31.2
--- NOTE | 2019-09-21 15:25 | EKG12_ITS ---
Test Reason : CP Blood Pressure : / mmHG Vent. Rate : 079 BPM Atrial Rate : 079 BPM P-R Int : 172 ms QRS Dur : 088 ms QT Int : 378 ms P-R-T Axes : 052 -29 074 degrees QTc Int : 433 ms Normal sinus rhythm Normal ECG Confirmed by LASHAUN CHIN ([id number]), writer editor KRISTEN RUBI ([id number]) on 09/28/2019 2:54:12 PM Referred By: Confirmed By:LASHAUN CHIN
--- NOTE | 2019-09-21 15:36 | RAD_ITS ---
STUDY: X-RAY - RIGHT SHOULDER REASON FOR EXAM: Female, 74 years old. Right shoulder and neck pain. TECHNIQUE: 4 chest, November 26, 2016. view(s) of the shoulder. COMPARISON: None. FINDINGS: There is mild degenerative arthrosis of the glenohumeral articulation. There is degenerative arthrosis of the acromioclavicular joint without inferior osseous spur formation. Normal acromion. There is no demonstrated inferior acromial spur. Normal humeral head and visualized proximal humerus. The soft tissue structures are unremarkable. Normal visualized pulmonary apex. RAD/Shoulder min 2 Views IMPRESSION: Stable degenerative changes of the right shoulder without acute abnormality. Electronically Signed: Edis Campos DO at 16:20 EDT Tel [phone], Service support ,
--- NOTE | 2019-09-21 15:37 | ED.DCSUM_ITS ---
History of Present Illness Chief Complaint: Upper Extremity Injury Narrative: Patient is a 74-year-old female who presents with right neck and arm pain. This is been going on for a couple of weeks. It began after she was doing some water aerobics. She has since quit doing this. She has been treated with a prednison e burst twice. She also has prescribed morphine for chronic pain at home. She has a prior history of a cervical fusion. She denies any chest pain or shortness of breath. She has nausea which she attributes to decreased oral intake. No fevers. No vomiting or diarrhea. No cough. Her pain is easily reproducible. Is worse when she pushes her make certain movements or changes positions. She does not have paresthesias or weakness. She does have a history of subclavian stenosis and it sounds like her primary care physician had an outpatient CT angiogram ordered. Past Medical History - Allergies and Home Meds Allergies/Adverse Reactions: Allergies atorvastatin calcium [From Lipitor] Allergy (Verified 09/21/19 15:34) Unknown bupropion HCl [From Wellbutrin] Allergy (Verified 09/21/19 15:34) Unknown mannitol [From Reclast] Allergy (Verified 09/21/19 15:34) joint pain, unable to breathe, unable to walk propoxyphene napsylate [From Darvocet-N 100] Allergy (Verified 09/21/19 15:34) Unknown Quinolones Allergy (Verified 09/21/19 15:34) Unknown Tetanus Vaccines and Toxoid [Tetanus Vaccines & Toxoid] Allergy (Verified 09/21/19 15:34) Chest tightness tizanidine Allergy (Verified 09/21/19 15:34) Unknown zoledronic acid [From Reclast] Allergy (Verified 09/21/19 15:34) joint pain,unable to breathe, unaable to walk JOINT PAIN,UNABLE TO BREATHE,UNABLE TO WALK pravastatin Adverse Reaction (Severe, Verified 09/21/19 15:34) Myalgias gemfibrozil Adverse Reaction (Intermediate, Verified 09/21/19 15:34) Unknown NSAIDS (Non-Steroidal Anti-Inflamma Adverse Reaction (Verified 09/21/19 15:34) Other Primary Care Physician: Con Johnson MD [Primary Care Provider] - Past Medical History: - - History of subclavian stenosis, diabetes, hypertension, hypothyroidism Surgical History: appendectomy, coronary bypass surgery, gastric bypass, tonsillectomy, - - Cardiac stent, , Carpal tunnel release, cardiac catheterization, carotid endarterectomy, right foot transmetatarsal amputation, exostectomy left foot Smoking Status: Never smoker - Family History Paternal Family History: Family History (Last Reviewed 06/18/19 @ 14:02 by Madison Alicea) Mother Cancer CVA (cerebral vascular accident) CAD (coronary artery disease) Father CAD (coronary artery disease) History of coronary artery bypass graft Sister CAD (coronary artery disease) Multiple sclerosis Family History: Reports: No pertinent history Maternal Family History: Family History (Last Reviewed 06/18/19 @ 14:02 by Madison Alicea) Mother Cancer CVA (cerebral vascular accident) CAD (coronary artery disease) Father CAD (coronary artery disease) History of coronary artery bypass graft Sister CAD (coronary artery disease) Multiple sclerosis Family History: Reports: No pertinent history Review of Systems All systems negative except as indicated General: Denies: Fever Eyes: Denies: Visual changes - bilaterally ENT: Denies: Bilateral ear pain Cardiovascular: Denies: Chest pain Respiratory: Denies: Dyspnea Gastrointestinal: Reports: Nausea. Denies: Abdominal pain, Vomiting, Diarrhea Musculoskeletal: Reports: Neck pain, Extremity Pain Neurological: Denies: Headache Physical Exam Vital Signs/Narrative: Vital Signs Temp Pulse Resp BP Pulse Ox 09/21/19 14:59 97.6 F L 82 16 155/62 H 98 Inital Vital Signs reviewed: Yes General: Well nourished, Well developed Head: Normocephalic Eyes: EOMI ENT: Moist mucous membranes Neck: Supple Cardiovascular: Regular rate, Regular rhythm, - - Easily palpable and symmetric radial pulses Respiratory: No distress Abdomen: Soft, Nontender Extremities: - - Patient has active full range of motion of the right upper extremity however she has pain with abduction of the shoulder. She has easily reproducible midline and right paraspinal neck tenderness as well as right posterior shoulder tenderness, no rash Skin: Normal color Neurological: Alert, - - Patient has normal strength and sensation of the right upper extremity she has normal credit underwriter strength wrist flexion and extension elbow flexion and extension shoulder abduction and abduction she has normal sensation light touch Psychological: Normal affect Diagnostic/Tx/Re-eval Impressions Shoulder X-Ray 04/27/20 15:36 IMPRESSION: Stable degenerative changes of the right shoulder without acute abnormality. Electronically Signed: Edis Campos DO at 16:20 EDT Tel [phone], Service support , Cervical Spine X-Ray 09/21/19 15:57 IMPRESSION: 1. Anterior fusion of C5 C7. 2. Mild degenerative disc disease above the level of fusion. 3. No acute fracture or subluxation. Electronically Signed: Edis Campos DO at 16:19 EDT Tel [phone], Service support , 09/21/19 15:36 Shoulder min 2 Views [RAD] Stat 09/21/19 15:57 Cerv Spine 2 or 3 Views [RAD] Stat - Medical Decision Making Although patient has a history of subclavian stenosis her presentation is not consistent with a vascular etiology. She has an easily palpable pulse and brisk capillary refill normal sensation. Her pain is easily reproducible worse with movement and begins in the neck and is radicular down the arm. She has a history of prior cervical surgery. I suspect her symptoms are due to a cervical radiculopathy. She was given intramuscular morphine here. We will obtain x- rays of the cervical spine and shoulder. I advised that she follow-up with pain management and/or her prior spinal surgeon. X-rays as above show prior cervical fusion and degenerative changes no acute fractures. Patient advised to follow-up as an outpatient. I do not see an indication for further emergent work-up here in the emergency department or hospitalization. Patient discharged. ED Disposition - Plan for ED Patient: Disposition: Home or Assisted Living Diagnosis: Cervical radiculopathy Instructions: ED CERVICAL RADICULOPATHY Referrals: Con Johnson MD [Primary Care Provider] -
[2019-09-21] MEDS: morphine 8 MG/ML Syringe IM (15:45)
--- NOTE | 2019-09-21 15:57 | RAD_ITS ---
STUDY: X-RAY - CERVICAL SPINE REASON FOR EXAM: Female, 74 years old. Right shoulder and neck pain. TECHNIQUE: 3 view(s) of the cervical spine were obtained. COMPARISON: None FINDINGS: There are degenerative changes of the anterior atlantoaxial articulation. Normal odontoid process. Normal cervical lordosis. There is anterior fusion of C5-C7. The plate and screws and disc spacers are intact and in satisfactory position. There is mild endplate spondylosis and disc space narrowing of the upper disc levels. There is no evidence of acute fracture or loss of vertebral axial height. There is maintenance of normal alignment. The soft tissue structures are unremarkable. There is evidence of median sternotomy. RAD/Cerv Spine 2 or 3 Views IMPRESSION: 1. Anterior fusion of C5 C7. 2. Mild degenerative disc disease above the level of fusion. 3. No acute fracture or subluxation. Electronically Signed: Edis Campos DO at 16:19 EDT Tel [phone], Service support ,
[2019-09-21 16:52] VITALS: BP 123/62; PULSE 88; RESP 16; O2SAT 98
== END 2019-09-21 17:08 | disposition home or self-care (01) ==
PROVIDERS: Emergency Provider Emergency Medicine; PCP Family Medicine
DX: M54.12 Radiculopathy, cervical region (principal); G89.29 Other chronic pain; E11.9 Type 2 diabetes mellitus without complications; I10 Essential (primary) hypertension; E03.9 Hypothyroidism, unspecified; Z79.02 Long term (current) use of antithrombotics/antiplatelets; Z79.82 Long term (current) use of aspirin; Z79.4 Long term (current) use of insulin; Z79.899 Other long term (current) drug therapy; Z98.1 Arthrodesis status; Z88.6 Allergy status to analgesic agent; Z98.84 Bariatric surgery status; Z95.1 Presence of aortocoronary bypass graft
CPT/HCPCS: 72040; 73030; 93005; 96372; 99282

== ENCOUNTER → 2019-09-25 14:03 | Outpatient (CLI) | payer MEDICARE, OTHER, SELFPAY ==
[2019-06-18 14:02] VITALS: BMI 30.9
[2019-09-21 14:59] VITALS: BMI 31.2
--- NOTE | 2019-09-25 14:13 | CT_ITS ---
STUDY: CTA CHEST REASON FOR EXAM: Female, 74 years old. SUBCLAVIAN ARTERY STENOSIS RADIATION DOSAGE (If Supplied By Facility): CTDIvol = ( 18.29 ) mGy, DLP = ( 624.98 ) mGycm TECHNIQUE: The examination was performed with the intravenous administration of IV 100 ML ISOVUE 370. Post-processing of the angiographic images was performed, with multiplanar reformation and 3D reconstruction. Individualized dose optimization techniques were used for this CT. COMPARISON: Comparison is made with prior study dated September 30, 2015. FINDINGS: Normal enhancement of the main pulmonary artery and right and left pulmonary arteries. Normal enhancement of the bilateral peripheral pulmonary arteries. There is no demonstrated pulmonary embolism. There is atherosclerotic calcification of the aortic arch with tortuosity. There is no demonstrated aortic dissection. Sternal cerclage wires and vascular clips are present from a prior sternotomy and coronary artery bypass graft procedure (CABG). There are calcifications of the coronary arteries. Normal mediastinum. Normal hilar regions. Normal visualized trachea and bronchi. The lungs are well expanded. Increased markings at the lung bases likely more prominent on the left side suggestive of basilar scarring. Normal pleura. Normal chest wall structures. There are degenerative changes of thoracic spine. There is dilatation of the mid and distal esophagus with fluid. This is suggestive of a large hiatal hernia. CT/CTA Chest W/WO Contrast IMPRESSION: Large hiatal hernia. Atherosclerotic plaques of the aortic arch. No subclavian artery stenosis is seen. Electronically Signed: Delvin Morton, at 15:15 EDT , Service support ,
[2019-09-25 14:26] LABS: CREATININE FINGERSTICK 1.6 mg/dL (0.55-1.02)
== END ==
PROVIDERS: PCP Family Medicine; Referring Provider Family Medicine; Visit Provider Family Medicine
DX: I77.1 Stricture of artery (principal)
CPT/HCPCS: 71275; Q9967; A4216

== ENCOUNTER → 2019-11-17 12:27 | Outpatient (CLI) | payer MEDICARE, OTHER, SELFPAY ==
[2019-11-17 15:24] LABS: Absolute Lymphocyte Count 2.23 X10^3/uL (0.83-4.51); Basophil# 0.03 X10^3/uL; Basophil% 0.4 % (0-1); Eosinophil# 0.12 X10^3/uL; Eosinophils% 1.5 % (0-5); Hematocrit 38.6 % (37-47); Hemoglobin 11.6 g/dL (12.0-15.0); Lymphocyte # 2.23 X10^3/ul (4.0); Lymphocyte % 27.8 % (19-41); Mean Corp Hgb Conc 30.1 g/dL (32-36); Mean Corpuscular Hgb 26.1 pg (27.0-32.0); Mean Corpuscular Volume 86.7 fL (81-99); Mean Platelet Vol. 10.3 fl (6.2-12.0); Monocyte# 0.66 X10^3/uL; Monocyte% 8.2 % (0-10); NRBC Flagged by Analyzer 0 % (0-5); Neutrophil # 4.96 X10^3/uL (2.7-7.7); Neutrophil % 61.7 % (47-70); Platelet Count 282 K/mm3 (150-450); RBC Distribution Width CV 16.5 % (11.6-14.6); RBC Distribution Width SD 51.5 fl (35.1-43.9); Red Blood Count 4.45 M/mm3 (4.2-5.4)
[2019-11-17 15:42] LABS: ALB/GLOB Ratio 0.9 RATIO (0.9-2.4); AST(SGOT) 13 U/L (15-37); Alanine Aminotransfer ALT/SGPT 25 U/L (13-56); Albumin, Serum 3.4 g/dL (3.2-5.0); Alkaline Phosphatase 111 U/L (45-117); Anion Gap 7 (5-15); BUN 30 mg/dL (7-18); BUN/Creat Ratio 20.7 RATIO (10-20); Calcium,Total 8.6 mg/dL (8.5-10.1); Chloride 106 mmol/L (98-107); Creatinine, Serum 1.45 mg/dL (0.55-1.02); EST Glomerular Filtration Rate 38 mL/min (>60); Est Glom Filt Rate - Afr Amer 46 mL/min (>60); Globulin 3.9 g/dL (2.2-4.2); Glucose 318 mg/dL (74-106); Magnesium 2.2 mg/dL (1.6-2.6); Potassium 5.7 mmol/L (3.5-5.1); Protein, Total 7.3 g/dL (6.4-8.2); Sodium Level 136 mmol/L (136-145); Thyroid Stim Hormone (TSH) 0.58 uIU/mL (0.358-3.74)
== END ==
PROVIDERS: PCP Family Medicine; Referring Provider Family Medicine; Visit Provider Family Medicine
DX: R53.83 Other fatigue (principal)
CPT/HCPCS: 36415; 80053; 83735; 84443; 85025

== ENCOUNTER 2019-11-23 15:00 | Outpatient (RCR) | payer MEDICARE, OTHER, SELFPAY ==
[2019-11-18 13:13] VITALS: BP 127/39; PULSE 70; RESP 16; TEMP 36.1; BMI 31.7
--- NOTE | 2019-11-18 13:37 | WC ---
PT DID NOT BRING MED LIST AND IS UNSURE OF ALL HER MEDS. TAKES MULTIPLE MEDS. WILL BRING LIST TO NEXT VISIT.
--- NOTE | 2019-11-18 16:27 | HP.PCM_ITS ---
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: Acute Code(s): L97.522 - Non-pressure chronic ulcer of other part of left foot with fat layer exposed (2) Charcot's joint of left foot Status: Chronic Code(s): M14.672 - Charcot's joint, left ankle and foot (3) Type 2 diabetes mellitus with diabetic polyneuropathy Status: Chronic Code(s): E11.42 - Type 2 diabetes mellitus with diabetic polyneuropathy History of Present Illness Date of Service: 11/18/19 Chief Complaint: right foot History of Wound: This is 74-year-old female with diabetic neuropathy history of Charcot foot with rocker-bottom deformity, coronary artery disease and other comorbidities sustained a blister in early October 2019. This became an open wound on her clinical visit November 02, 2019. She continues to walk on this. The onset occurred after she was walking in her house with her Oralia brace on and no shoe. She denies fever, chill, nausea, vomiting. She has been applying hydrogel and a gauze. She has rest paresthesias. She denies claudication. Past Medical History Past Medical History: Chronic Problems (Last Reviewed 06/18/19 @ 14:02 by Madison Alicea) Charcot's joint of left foot (Chronic) Type 2 diabetes mellitus with diabetic polyneuropathy (Chronic) History of CVA (cerebrovascular accident) (Chronic) Peripheral arterial occlusive disease (Chronic) Stroke (Chronic) Stented coronary artery (Chronic 12/03/18) PTCA and YASIR to proximal and distal CX per Dr. Hatfield @ [facility]:(Promus Premier 4.0 X 12 mm L2 stent from distal left main into proximal LCX; Promus Premier RX 2.25 X 12 mm L1 stent in distal LCX) 12/03/2018:Triple vessel CAD of the LAD, LCX, RCA Successful PTCA/YASIR mid LCX with a 2.5 x 20 Promus Synergy stent; 85%-->0-%, no dissection. 12/24/18:FFR of RCA=0.97, negative, left for medical managemen History of left heart catheterization (Chronic) CABG X 3 vessels [facility]:DANIEL to LAD, reverse SVG to dx and to 2nd OM per Dr. Borjas @ [facility] 09/09/2014; PTCA andDES to proximal and distal CX per Dr. Hatfield 12/21/2014; History of coronary artery bypass graft (Chronic) CABG X 3 vessels [facility]:DANIEL to LAD, reverse SVG to dx and to 2nd OM per Dr. Borjas @ [facility] 09/09/2014 Atherosclerotic heart disease of [place] coronary artery without angina pectoris (Chronic) CABG X 3 vessels [facility]: DANIEL to LAD, reverse SVG to dx and to 2nd OM per Dr. Borjas @ [facility] 09/09/2014; PTCA/YASIR to Left main, LAD, and OM1 per Dr. Hatfield 12/21/2014; C. 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) Carotid artery disease (Chronic) Xerosis of skin (Chronic) Malnutrition (Chronic) Ulcer of right foot with fat layer exposed (Chronic) Diabetes mellitus with polyneuropathy (Chronic) Peripheral vascular disease (Chronic) Hypertension (Chronic) Obesity (Chronic) Diabetes mellitus type II (Chronic) Chronic pain (Chronic) Fatty liver (Chronic) Hyperlipidemia (Chronic) Coronary artery disease (Chronic) Hypothyroidism (Chronic) Iron deficiency anemia (Chronic) GERD (gastroesophageal reflux disease) (Chronic) Vitamin D deficiency (Chronic) Insomnia (Chronic) Surgical History: appendectomy, coronary bypass surgery, gastric bypass, tonsillectomy, - - Cardiac stent, , Carpal tunnel release, cardiac catheterization, carotid endarterectomy, right foot transmetatarsal amputation, exostectomy left foot Allergies/Adverse Reactions: Allergies atorvastatin calcium [From Lipitor] Allergy (Verified 11/18/19 13:36) Unknown bupropion HCl [From Wellbutrin] Allergy (Verified 11/18/19 13:36) Unknown mannitol [From Reclast] Allergy (Verified 11/18/19 13:36) joint pain, unable to breathe, unable to walk propoxyphene napsylate [From Darvocet-N 100] Allergy (Verified 11/18/19 13:36) Unknown Quinolones Allergy (Verified 11/18/19 13:36) Unknown Tetanus Vaccines and Toxoid [Tetanus Vaccines & Toxoid] Allergy (Verified 11/18/19 13:36) Chest tightness tizanidine Allergy (Verified 06/24/20 13:36) Unknown zoledronic acid [From Reclast] Allergy (Verified 11/18/19 13:36) joint pain,unable to breathe, unaable to walk JOINT PAIN,UNABLE TO BREATHE,UNABLE TO WALK pravastatin Adverse Reaction (Severe, Verified 11/18/19 13:36) Myalgias gemfibrozil Adverse Reaction (Intermediate, Verified 11/18/19 13:36) Unknown NSAIDS (Non-Steroidal Anti-Inflamma Adverse Reaction (Verified 09/21/19 15:34) Other Home Medications: Ambulatory Orders Medication Instructions Recorded Aspirin [Aspirin, Baby] 81 mg PO DAILY@0800 03/10/17 Levothyroxine Sodium [Levoxyl] 75 mcg PO QHS 03/10/17 Nitroglycerin (INPATIENT USE) 0.4 mg SUBLINGUAL Q5M PRN 03/10/17 [Nitrostat] Pravastatin Sodium 40 mg PO DAILY 03/10/17 Insulin Detemir [Levemir FlexPen] 26 units SC BID 07/25/17 amlodipine 5 mg tablet 5 mg PO QHS tab 05/05/18 allopurinol 100 mg tablet 100 mg PO DAILY 05/08/18 hydroxyzine HCl 50 mg tablet 25 - 50 mg PO Q8H PRN #0 05/08/18 insulin aspart U-100 100 unit/mL 12 unit SC TIDAC ml 05/08/18 (3 mL) subcutaneous pen quetiapine 50 mg tablet 100 mg PO QHS tab 05/08/18 Morphine Sulfate 3 ml PO Q6H PRN PRN 06/07/18 lipase/protease/amylase [Andressa ROYAL 1 tab PO BREAKFAST 06/18/18 24,000 Unit Capsule] clopidogrel 75 mg tablet 75 mg PO DAILY #90 tab 10/01/18 bisacodyl 10 mg rectal suppository 10 mg RC DAILY PRN 11/24/18 cyclobenzaprine 10 mg tablet 10 mg PO HS PRN 11/24/18 dicyclomine 10 mg capsule 10 mg PO BID PRN 11/24/18 glucagon (human recombinant) 1 mg 1 mg IM ONCE PRN 11/24/18 solution for injection ipratropium bromide 0.03 % nasal 2 spray INTRANASAL .COMPLEX 11/24/18 spray levomefolate Ca 3 mg-B6 35 1 cap PO 4X/DAY cap 11/24/18 mg-meB12 2 mg-algal oil 90.314 mg capsule linaclotide 72 mcg capsule 72 mcg PO DAILY 11/24/18 metoclopramide HCl 5 mg tablet 5 mg PO QAC PRN 11/24/18 polyethylene glycol 3350 17 17 g PO BID 11/24/18 gram/dose oral powder promethazine 6.25 mg/5 mL oral 6.25 mg PO Q6H PRN 11/24/18 syrup diclofenac sodium 1 % topical gel 2 g TOPICAL ONCE 12/16/18 carvedilol 25 mg tablet 25 mg PO BID #180 tab 05/25/19 isosorbide mononitrate 60 mg 60 mg PO .COMPLEX #270 tab 06/18/19 tablet,extended release 24 hr Calcium Citrate 200 mg PO BID 09/21/19 Capsaicin [Arthritis Pain Relief] 1 applic TP TID 09/21/19 Clobetasol Propionate/Emoll 1 applic TP BID 09/21/19 [Clobetasol Emollient 0.05% Crm] D-Methorphan/PE/Acetaminophen 1 ea PO PRN PRN 09/21/19 [Cait-[place] Plus Day Cap] Ergocalciferol [Vitamin D] 50,000 unit PO Q3D 09/21/19 Esomeprazole Magnesium 40 mg PO DAILY 09/21/19 Menthol/Lanolin/Calamine/Znox 1 applic TOPICAL DAILY 09/21/19 [Calmoseptine Ointment] Misoprostol 200 mcg PO 4X/DAY 09/21/19 Saliva Stimulant Comb. No.7 1 applic MM PRN PRN 09/21/19 [Biotene Oralbalance] automatic bp monitor 1 unit TOPICAL X1 09/21/19 lisinopril 10 mg tablet 10 mg PO DAILY #90 tab 11/03/19 - Family History Paternal Family History: Family History (Last Reviewed 06/18/19 @ 14:02 by Madison Alicea) Mother Cancer CVA (cerebral vascular accident) CAD (coronary artery disease) Father CAD (coronary artery disease) History of coronary artery bypass graft Sister CAD (coronary artery disease) Multiple sclerosis No pertinent history Maternal Family History: Family History (Last Reviewed 06/18/19 @ 14:02 by Madison Alicea) Mother Cancer CVA (cerebral vascular accident) CAD (coronary artery disease) Father CAD (coronary artery disease) History of coronary artery bypass graft Sister CAD (coronary artery disease) Multiple sclerosis No pertinent history Smoking Status: Never smoker Review of Systems Constitutional: Reports: Fatigue. Denies: Chills, Fever HEENT: Denies: Sore Throat Cardiovascular: Denies: Chest Pain, Claudication Respiratory: Denies: Cough Gastrointestinal: Denies: Nausea, Vomiting Musculoskeletal: Reports: Foot Pain Skin: Reports: Skin Changes, Wounds Neurological: Reports: Balance problems, Incoordination, Numbness, Tingling - Physical Exam Vital Signs Temp Pulse Resp BP 96.9 F L 70 16 127/39 H 11/18/19 13:13 11/18/19 13:13 11/18/19 13:13 11/18/19 13:13 General: Alert, Oriented x3, Cooperative, No apparent distress HEENT: Atraumatic Extremities: No cyanosis, Capillary Refill Less than 3 Seconds, No Calf Tenderness - Negative Claudio and Elizondo sign, Diminished Peripheral Pulses, Edema, - - Rocker-bottom deformity without laxity, calor, erythema left lower extremity Skin: Ulcer/ Wound - No purulence, erythema, streaking, odor, infection. The skin discontinuity at the osseous midfoot prominence is granular fibrous without deep probing, necrosis, maceration. No bogginess or fluctuance on palpation. Compartments of the foot remained soft Wound Measurements and Assessment WC - Nurse 1 - General Ulcer Measurement Start: 11/18/19 13:12 Freq: Status: Active Protocol: Activity Type Activity Date Activity User E-Sign Co-Sign Detail Recorded Client Recorded Date Recorded By Document 11/18/19 13:13 [facility] [id number] 11/18/19 13:33 [facility] 11/18/19 13:13 Wound Center Nurse 1 [Ulcer Assessment] #2- L PLANTAR FOOT -Combined with other wound No -Current Size (cm) - Length 2.3 -Current Size (cm) - Width 2.3 -Current Size (cm) - Depth 0.2 -Total Square Cm 5.29 -Date of Last Picture (Recall this 11/18/19 field) -Photo Taken Yes -Epithelialization None Present -Tunneling No -Undermining/Tunneling No -Circular Undermining No -Exudate Amt Small -Exudate Type Serosanguineous -Wound Margin Distinct, Outline Attached -Granulation Amt Medium (34-66%) -Granulation Quality [place] -Slough/Fibrin Yes -Necrosis Amt Medium (34-66%) -Necrotic Tissue Type Adherent Slough -Texture (Shannon-wound Skin Appearance) Assessed, Scarring -Moisture (Shannon-wound Skin Appearance Assessed ) -Color (Shannon-wound Skin Appearance) Assessed, Erythema -Temperature (Shannon-wound Skin No Abnormality Appearance) (Pt Warm) -Tenderness on Palpation (Shannon-wound Yes Skin Appearance) -Ulcer Cleansing SOAPY WATER -Foul Odor after Cleansing No -Anesthetic Used 5% Lidocaine Gel [Edema Assessment] -Lower Limb Edema Present No -Right Calf (cm) 33.8 -Right Ankle (cm) 19.9 -Left Calf (cm) 35.9 -Left Ankle (cm) 21.2 - Nurse 2 - General Ulcer CM Notes Start: 11/18/19 13:12 Freq: Status: Active Protocol: Activity Type Activity Date Activity User E-Sign Co-Sign Detail Recorded Client Recorded Date Recorded By Document 11/18/19 14:50 [facility] [id number] 11/18/19 14:51 [facility] 11/18/19 14:50 Wound Center Nurse 2 [Procedure/Treatment] #2- L PLANTAR FOOT -Correct Patient No -Correct Side, Site, Position No -Correct Procedure No -Procedure Performed No -Wound/Ulcer Outcome Not Healed [See Physician Procedure note for Specifics] Pain Scale: 0-10 Numeric [Pain] -Is Patient Pain Free? Yes Musculoskeletal: No Tenderness to Palpation of Joints or Extremities, Muscle Wasting Neurological: - - Lack of epicritic sensation consistent with neuropathy status Psych/Mental Status: Normal Affect, Appropriate Debridement Note Post-Debridement Measurements/Treatment - Nurse 2 - General Ulcer CM Notes Start: 11/18/19 13:12 Freq: Status: Active Protocol: Activity Type Activity Date Activity User E-Sign Co-Sign Detail Recorded Client Recorded Date Recorded By Document 11/18/19 14:50 [id number] 11/18/19 14:51 11/18/19 14:50 Wound Center Nurse 2 #2- L PLANTAR FOOT -Correct Patient No -Correct Side, Site, Position No -Correct Procedure No -Procedure Performed No -Wound/Ulcer Outcome Not Healed Pain Scale: 0-10 Numeric Is Patient Pain Free? Yes Wound debrided: plantar foot Wound Grade/Stage: grade 1 Tissue Removed: fibrous, devitalized subcutaneous, biofilm, slough No debridement was completed today - This ulcer was debrided at the foot and ankle center on Saturday and therefore was not debrided today Assessment/Plan Assessment: Left foot plantar ulcer, britt grade 1, no infection. Midfoot Charcot deformity, right. Diabetes with neuropathy. Malnutrition suspected. Other comorbidities Plan: I reviewed and discussed her case. Debridement was performed in a subcutaneous excisional manner this past Saturday at the foot and ankle center. She is high risk and was referred to the wound care center for consideration of advanced wound care product application total contact casting. Strict offloading as needed to help this heal. She is amendable to have a total contact cast applied and the benefits and risks were discussed. She elects proceed at this time. Verbal consent was obtained. This was applied in a rectus position and well-padded manner according standard protocol. She tolerated this well. A cast shoe was also provided and she was advised to limit weightbearing activity and to use an assistive device to help with her balance. Advanced wound healing product will be considered after this ulcer has been present and documented to be open for at least 1 month. Lotus was applied today prior to total contact cast application. To continue control her glycemic levels to optimize healing and to take nutritional supplementation optimize healing as well. Her labs from earlier this week were noted. She did not have leukocytosis and her white blood cell count 8.0. Her creatinine function is diminished and she is functioning with reduced kidney ability. Her hemoglobin A1c was 7.2% in May 2019. Left foot x-rays were obtained at the foot and ankle center recently and it did not demonstrate any acute fracture, dislocation, soft tissue emphysema, or foreign body. There is osseous disruption at the midfoot consistent with Charcot deformity with consolidation and rocker-bottom foot with prominent plantar foot bone prominence. This is consistent with her prior serial x-rays. I answered her questions. She will return to the wound healing center in 1 week or call sooner if she has any questions or concerns. She is reassured no local or systemic signs of illness are noted or suspected today.
== END 2019-11-24 23:59 ==
LOC: WC 15:00
PROVIDERS: PCP Family Medicine; Visit Provider Podiatrist
DX: E11.621 Type 2 diabetes mellitus with foot ulcer (principal); L97.522 Non-pressure chronic ulcer of other part of left foot with fat layer exposed; E11.42 Type 2 diabetes mellitus with diabetic polyneuropathy; R60.0 Localized edema; I25.10 Atherosclerotic heart disease of native coronary artery without angina pectoris; E11.51 Type 2 diabetes mellitus with diabetic peripheral angiopathy without gangrene; Z95.1 Presence of aortocoronary bypass graft; I10 Essential (primary) hypertension; E78.5 Hyperlipidemia, unspecified; E66.9 Obesity, unspecified; Z68.31 Body mass index [BMI] 31.0-31.9, adult; K21.9 Gastro-esophageal reflux disease without esophagitis; E03.9 Hypothyroidism, unspecified; Z79.899 Other long term (current) drug therapy; Z79.82 Long term (current) use of aspirin; Z79.4 Long term (current) use of insulin
CPT/HCPCS: 29445; 99212; G0463

== ENCOUNTER → 2019-11-25 09:30 | Outpatient (CLI) | payer MEDICARE, OTHER, SELFPAY ==
[2019-11-18 13:13] VITALS: BMI 31.7
[2019-11-25 11:09] LABS: Albumin, Serum 3.2 g/dL (3.2-5.0); BUN 32 mg/dL (7-18); BUN/Creat Ratio 23.9 RATIO (10-20); Calcium,Total 8.6 mg/dL (8.5-10.1); Chloride 110 mmol/L (98-107); Creatinine, Serum 1.34 mg/dL (0.55-1.02); EST Glomerular Filtration Rate 41 mL/min (>60); Est Glom Filt Rate - Afr Amer 50 mL/min (>60); Glucose 105 mg/dL (74-106); Phosphorus 3.4 mg/dL (2.5-4.9); Potassium 4.2 mmol/L (3.5-5.1); Sodium Level 142 mmol/L (136-145)
== END ==
PROVIDERS: PCP Family Medicine; Referring Provider Family Medicine; Visit Provider Family Medicine
DX: I10 Essential (primary) hypertension (principal); E11.621 Type 2 diabetes mellitus with foot ulcer; E11.42 Type 2 diabetes mellitus with diabetic polyneuropathy; E11.610 Type 2 diabetes mellitus with diabetic neuropathic arthropathy; L97.522 Non-pressure chronic ulcer of other part of left foot with fat layer exposed; I25.10 Atherosclerotic heart disease of native coronary artery without angina pectoris
CPT/HCPCS: 11042; 29445; 36415; 80069

== ENCOUNTER 2019-12-23 14:30 | Outpatient (RCR) | payer MEDICARE, OTHER, SELFPAY ==
[2019-11-18 13:13] VITALS: BMI 31.7
[2019-11-25 00:39] VITALS: BP 127/39; PULSE 70; RESP 16; TEMP 36.1
[2019-11-25 15:29] VITALS: BP 134/82; PULSE 89; RESP 18; TEMP 36.6; BMI 31.7
--- NOTE | 2019-11-25 16:48 | PCM.WC.PN ---
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: Acute Current Visit: Yes Code(s): L97.522 - Non-pressure chronic ulcer of other part of left foot with fat layer exposed (2) Charcot's joint of left foot Status: Chronic Current Visit: Yes Code(s): M14.672 - Charcot's joint, left ankle and foot (3) Type 2 diabetes mellitus with diabetic polyneuropathy Status: Chronic Current Visit: Yes Code(s): E11.42 - Type 2 diabetes mellitus with diabetic polyneuropathy Type of Wound Date of Service: 11/25/19 Chief Complaint: Left foot History of Wound: This is 74-year-old female with diabetic neuropathy history of Charcot left foot with rocker-bottom deformity, coronary artery disease and other comorbidities sustained a blister in early October 2019. This became an open wound on her clinical visit November 02, 2019. She continues to walk on this. The onset occurred after she was walking in her house with her Oralia brace on and no shoe. She denies fever, chill, nausea, vomiting. She has rest paresthesias. She denies claudication. She has successfully kept her total contact cast clean, dry, and intact this past week. She had some initial cramping of the leg immediately after application last week and denies any problems with this after that initial moment. She denies chest pain, shortness of breath or calf pain. She is amendable to have another cast applied today. Progress of Wound: Improving - Physical Exam Vital Signs Temp Pulse Resp BP 97.8 F 89 18 134/82 H 11/25/19 15:29 11/25/19 15:29 11/25/19 15:29 11/25/19 15:29 General: Alert, Oriented x3, Cooperative, No apparent distress HEENT: Atraumatic Extremities: No cyanosis, Capillary Refill Less than 3 Seconds, No Calf Tenderness, Diminished Peripheral Pulses, Edema, - - Rocker-bottom right foot with no gross instability, warmth, or redness. This is a chronic deformity at this time Skin: Ulcer/ Wound - No purulence, erythema, streaking, odor, infection. The ulcer bed is pale and granular. The peripheral skin is hairless and atrophic Wound Measurements and Assessment WC - Nurse 1 - General Ulcer Measurement Start: 11/25/19 15:29 Freq: Status: Active Protocol: Activity Type Activity Date Activity User E-Sign Co-Sign Detail Recorded Client Recorded Date Recorded By Document 11/25/19 15:29 DV [id number] 11/25/19 15:31 DV 11/25/19 15:29 Wound Center Nurse 1 [Ulcer Assessment] #2- L PLANTAR FOOT -Combined with other wound No -Current Size (cm) - Length 2.3 -Current Size (cm) - Width 2.7 -Current Size (cm) - Depth 0.1 -Total Square Cm 6.21 -Photo Taken No -Epithelialization None Present -Tunneling No -Undermining/Tunneling No -Circular Undermining No -Classification - Thickness Full Thickness without Exposed Support Structure -Exudate Amt Large -Exudate Type Serosanguineous -Wound Margin Flat & Intact -Granulation Amt Small (1-33%) -Granulation Quality [place] -Slough/Fibrin Yes -Necrosis Amt Medium (34-66%) -Necrotic Tissue Type Adherent Slough -Structure Exposed None/Limited to Skin Breakdown -Texture (Shannon-wound Skin Appearance) No Abnormality, Assessed -Moisture (Shannon-wound Skin Appearance Assessed, ) Weeping -Color (Shannon-wound Skin Appearance) No Abnormality, Assessed -Temperature (Shannon-wound Skin No Abnormality Appearance) (Pt Warm) -Tenderness on Palpation (Shannon-wound No Skin Appearance) -Foul Odor after Cleansing No -Anesthetic Used 4% Lidocaine Solution WC - Nurse 2 - General Ulcer CM Notes Start: 11/25/19 15:29 Freq: Status: Active Protocol: Activity Type Activity Date Activity User E-Sign Co-Sign Detail Recorded Client Recorded Date Recorded By Document 11/25/19 16:43 [facility] [id number] 11/25/19 16:46 E[facility] 11/25/19 16:43 Wound Center Nurse 2 [Procedure/Treatment] -Time 16:44 -Correct Patient Yes -Correct Side, Site, Position Yes -Correct Procedure Yes -Procedure Performed Yes -Type of Procedure Debridement -Clinical Debridement Subcutaneous -Post Debridement Size (cm) - Length 2.4 -Post Debridement Size (cm) - Width 2.8 -Post Debridement Size (cm) - Depth 0.1 -Total Square Cm 6.72 -Wound/Ulcer Outcome Not Healed -Ulcer Cleansing Rinsed/ Irrigated with Saline -Foul Odor after Cleansing No -Bioengineered Tissue No -Bleeding Controlled with Pressure -Offloading Yes -Type of Offloading Total Contact Cast (TCC) -Treatment Response Procedure Tolerated Well [See Physician Procedure note for Specifics] Pain Scale: 0-10 Numeric [Pain] -Is Patient Pain Free? Yes Musculoskeletal: No Tenderness to Palpation of Joints or Extremities, Muscle Wasting Neurological: - - Lack of epicritic sensation to light touch is consistent with neuropathy status Psych/Mental Status: Normal Affect, Appropriate Debridement Note Post-Debridement Measurements/Treatment WC - Nurse 2 - General Ulcer CM Notes Start: 11/25/19 15:29 Freq: Status: Active Protocol: Activity Type Activity Date Activity User E-Sign Co-Sign Detail Recorded Client Recorded Date Recorded By Document 11/25/19 16:43 JF [id number] 11/25/19 16:46 E[facility]OG[facility] 11/25/19 16:43 Wound Center Nurse 2 #2- L PLANTAR FOOT -Time 16:44 -Correct Patient Yes -Correct Side, Site, Position Yes -Correct Procedure Yes -Procedure Performed Yes -Type of Procedure Debridement -Clinical Debridement Subcutaneous -Post Debridement Size (cm) - Length 2.4 -Post Debridement Size (cm) - Width 2.8 -Post Debridement Size (cm) - Depth 0.1 -Total Square Cm 6.72 -Wound/Ulcer Outcome Not Healed -Ulcer Cleansing Rinsed/ Irrigated with Saline -Foul Odor after Cleansing No -Bioengineered Tissue No -Bleeding Controlled with Pressure -Offloading Yes -Type of Offloading Total Contact Cast (TCC) -Treatment Response Procedure Tolerated Well Pain Scale: 0-10 Numeric Is Patient Pain Free? Yes Wound debrided: plantar foot Laterality: Left Wound Grade/Stage: grade 1 Type of Debridement: Excisional debridement Anesthesia Used: 5% Lidocaine Gel Depth: in the subcutaneous layer Percentage of wound debrided: 100 Instrument Used: #15 blade Tissue Removed: fibrous, devitalized subcutaneous, biofilm, slough Severity: Fat Layer Exposed Amount of bleeding with debridement: Mild Bleeding Controlled with: Pressure Patient tolerated procedure well Assessment/Plan Active Problems (Last Reviewed 06/18/19 @ 14:02 by Madison Alicea) Ulcer of left foot with fat layer exposed (Acute) Charcot's joint of left foot (Chronic) Type 2 diabetes mellitus with diabetic polyneuropathy (Chronic) Assessment: Left foot plantar ulcer, britt grade 1, no infection. Midfoot Charcot deformity, right. Diabetes with neuropathy. Malnutrition suspected. Other comorbidities Plan: I reviewed and discussed her case. Debridement was performed in a subcutaneous excisional manner as noted in the clinical panel. She is high risk and was referred to the wound care center for consideration of advanced wound care product application total contact casting. Strict offloading as needed to help this heal. She is amendable to have a total contact cast applied and the benefits and risks were discussed. She did well last week with this. She elects proceed at this time. Verbal consent was obtained. This was applied in a rectus position and well-padded manner according standard protocol. She tolerated this well. A cast shoe was also provided and she was advised to limit weightbearing activity and to use an assistive device to help with her balance. Advanced wound healing product will be considered after this ulcer has been present and documented to be open for at least 1 month. Lotus was applied today prior to total contact cast application. To continue control her glycemic levels to optimize healing and to take nutritional supplementation optimize healing as well. Her labs from earlier this week were noted. She did not have leukocytosis and her white blood cell count 8.0. Her creatinine function is diminished and she is functioning with reduced kidney ability. Her hemoglobin A1c was 7.2% in May 2019. Left foot x-rays were obtained at the foot and ankle center recently and it did not demonstrate any acute fracture, dislocation, soft tissue emphysema, or foreign body. There is osseous disruption at the midfoot consistent with Charcot deformity with consolidation and rocker-bottom foot with prominent plantar foot bone prominence. This is consistent with her prior serial x-rays. I answered her questions. She will return to the wound healing center in 1 week or call sooner if she has any questions or concerns. She is reassured no local or systemic signs of illness are noted or suspected today.
[2019-12-02 15:29] VITALS: BP 133/64; PULSE 74; RESP 18; TEMP 36.1; BMI 31.7
--- NOTE | 2019-12-02 16:33 | PCM.WC.PN ---
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 This became an open wound on her clinical visit November 02, 2019. She continues to walk on this. She denies fever, chill, nausea, vomiting. She kept her total contact cast clean, dry, and intact and did very well this past week. Progress of Wound: Improving - Physical Exam Vital Signs Temp Pulse Resp BP 97 F L 74 18 133/64 H 12/02/19 15:29 12/02/19 15:29 12/02/19 15:29 12/02/19 15:29 General: Alert, Oriented x3, Cooperative, No apparent distress HEENT: Atraumatic Extremities: No cyanosis, Capillary Refill Less than 3 Seconds, No Calf Tenderness, Diminished Peripheral Pulses, Edema - Mild, - - Rocker-bottom foot consistent with Charcot, no laxity, calor, or acute findings Skin: Ulcer/ Wound - No purulence, erythema, streaking, odor, infection. The wound bed has improved granulation base and the adjacent skin is hairless and atrophic Wound Measurements and Assessment WC - Nurse 1 - General Ulcer Measurement Start: 11/25/19 15:29 Freq: Status: Active Protocol: Activity Type Activity Date Activity User E-Sign Co-Sign Detail Recorded Client Recorded Date Recorded By Document 12/02/19 15:29 BS [id number] 12/02/19 15:31 BS 12/02/19 15:29 Wound Center Nurse 1 [Ulcer Assessment] #3- L PLANTAR FOOT -Combined with other wound No -Current Size (cm) - Length 1.6 -Current Size (cm) - Width 41.7 -Current Size (cm) - Depth 0.2 -Total Square Cm 66.72 -Granulation Quality Red -Texture (Shannon-wound Skin Appearance) Assessed, Scarring -Moisture (Shannon-wound Skin Appearance Assessed, ) Weeping -Color (Shannon-wound Skin Appearance) Assessed, Hemosiderin Staining -Temperature (Shannon-wound Skin No Abnormality Appearance) (Pt Warm) -Tenderness on Palpation (Shannon-wound Yes Skin Appearance) -Ulcer Cleansing Soap and water -Foul Odor after Cleansing No -Anesthetic Used 4% Lidocaine Solution - Nurse 2 - General Ulcer CM Notes Start: 11/25/19 15:29 Freq: Status: Active Protocol: Activity Type Activity Date Activity User E-Sign Co-Sign Detail Recorded Client Recorded Date Recorded By Document 12/02/19 16:31 GLORIA [id number] 12/02/19 16:31 PL 12/02/19 16:31 Wound Center Nurse 2 [Procedure/Treatment] -Time 16:15 -Correct Patient Yes -Correct Side, Site, Position Yes -Correct Procedure Yes -Procedure Performed Yes -Type of Procedure Debridement -Clinical Debridement Subcutaneous -Post Debridement Size (cm) - Length 1.5 -Post Debridement Size (cm) - Width 1.8 -Post Debridement Size (cm) - Depth 0.2 -Total Square Cm 2.70 -Wound/Ulcer Outcome Not Healed -Ulcer Cleansing Rinsed/ Irrigated with Saline -Foul Odor after Cleansing No -Bleeding Controlled with Pressure -Treatment Response Procedure Tolerated Well [See Physician Procedure note for Specifics] Pain Scale: 0-10 Numeric [Pain] -Is Patient Pain Free? Yes Musculoskeletal: No Tenderness to Palpation of Joints or Extremities, Muscle Wasting Neurological: - - Lack of epicritic sensation light touch is consistent with neuropathy status Psych/Mental Status: Normal Affect, Appropriate Debridement Note Post-Debridement Measurements/Treatment - Nurse 2 - General Ulcer CM Notes Start: 11/25/19 15:29 Freq: Status: Active Protocol: Activity Type Activity Date Activity User E-Sign Co-Sign Detail Recorded Client Recorded Date Recorded By Document 11/25/19 16:43 EULOGIO [id number] 11/25/19 16:46 Document 12/02/19 16:31 PL [id number] 12/02/19 16:31 PL 11/25/19 12/02/19 16:43 16:31 Wound Center Nurse 2 #3- L PLANTAR FOOT -Time 16:44 16:15 -Correct Patient Yes Yes -Correct Side, Site, Position Yes Yes -Correct Procedure Yes Yes -Procedure Performed Yes Yes -Type of Procedure Debridement Debridement -Clinical Debridement Subcutaneous Subcutaneous -Post Debridement Size (cm) - Length 2.4 1.5 -Post Debridement Size (cm) - Width 2.8 1.8 -Post Debridement Size (cm) - Depth 0.1 0.2 -Total Square Cm 6.72 2.70 -Wound/Ulcer Outcome Not Healed Not Healed -Ulcer Cleansing Rinsed/ Rinsed/ Irrigated with Irrigated with Saline Saline -Foul Odor after Cleansing No No -Bioengineered Tissue No -Bleeding Controlled with Pressure Pressure -Offloading Yes -Type of Offloading Total Contact Cast (TCC) -Treatment Response Procedure Procedure Tolerated Well Tolerated Well Pain Scale: 0-10 Numeric Is Patient Pain Free? Yes Yes Wound debrided: plantar foot Laterality: Left Wound Grade/Stage: grade 1 Type of Debridement: Excisional debridement Anesthesia Used: 5% Lidocaine Gel Depth: in the subcutaneous layer Percentage of wound debrided: 100 Instrument Used: #15 blade Tissue Removed: fibrous, devitalized subcutaneous, biofilm, slough Severity: Fat Layer Exposed Amount of bleeding with debridement: Mild Bleeding Controlled with: Pressure Patient tolerated procedure well Assessment/Plan Assessment: Left foot plantar ulcer, britt grade 1, no infection. Midfoot Charcot deformity, left. Diabetes with neuropathy. Malnutrition suspected. Other comorbidities Plan: I reviewed and discussed her case. Debridement was performed in a subcutaneous excisional manner as noted in the clinical panel. Strict offloading as needed to help this heal. She has some mild maceration peripherally around the wound today will take a break from a total contact cast. Recommend reapplication next week and she is amendable. Advanced wound healing product will be considered after this ulcer has been present and documented to be open for at least 1 month. It is that time and this is medically necessary. Prior authorization will be initiated. Lotus was applied today. To continue control her glycemic levels to optimize healing and to take nutritional supplementation optimize healing as well. Her labs from earlier this week were noted. She did not have leukocytosis and her white blood cell count 8.0. Her creatinine function is diminished and she is functioning with reduced kidney ability. Her hemoglobin A1c was 7.2% in May 2019. Left foot x-rays were obtained at the foot [facility] ankle center recently and it did not demonstrate any acute fracture, dislocation, soft tissue emphysema, or foreign body. There is osseous disruption at the midfoot consistent with Charcot deformity with consolidation and rocker-bottom foot with prominent plantar foot bone prominence. This is consistent with her prior serial x-rays. I answered her questions. She will return to the wound healing center in 1 week or call sooner if she has any questions or concerns. She is reassured no local or systemic signs of illness are noted or suspected today.
[2019-12-09 09:10] VITALS: BP 143/73; PULSE 70; RESP 18; TEMP 36.6; BMI 31.7
--- NOTE | 2019-12-09 11:46 | PCM.WC.PN ---
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 Code(s): L97.522 - Non-pressure chronic ulcer of other part of left foot with fat layer exposed (2) Charcot's joint of left foot Status: Chronic Code(s): M14.672 - Charcot's joint, left ankle and foot (3) Type 2 diabetes mellitus with diabetic polyneuropathy Status: Chronic Code(s): E11.42 - Type 2 diabetes mellitus with diabetic polyneuropathy Type of Wound Date of Service: 12/09/19 Chief Complaint: Left foot History of Wound: This is 74-year-old female with diabetic neuropathy history of Charcot left foot with rocker-bottom deformity, coronary artery disease and other comorbidities sustained a blister in early October 2019. This became an open wound on her clinical visit November 02, 2019. She continues to walk on this. She denies fever, chill, nausea, vomiting. She kept her total contact cast clean, dry, and intact and did very well this past week. Progress of Wound: Improving - Physical Exam Vital Signs Temp Pulse Resp BP 98 F 70 18 143/73 H 12/09/19 09:10 12/09/19 09:10 12/09/19 09:10 12/09/19 09:10 General: Alert, Oriented x3, Cooperative, No apparent distress Extremities: No cyanosis, Capillary Refill Less than 3 Seconds, No Calf Tenderness, Diminished Peripheral Pulses, Edema Skin: Ulcer/ Wound - No purulence, erythema, streaking, odor, infection. Peripheral epithelialization is noted. The ulcer bed is granular. The adjacent skin is hairless and atrophic. Wound Measurements and Assessment WC - Nurse 1 - General Ulcer Measurement Start: 11/25/19 15:29 Freq: Status: Active Protocol: Activity Type Activity Date Activity User E-Sign Co-Sign Detail Recorded Client Recorded Date Recorded By Document 12/09/19 09:10 [email or web address] [id number] 12/09/19 09:17 DL 12/09/19 09:10 Wound Center Nurse 1 [Ulcer Assessment] #3- L PLANTAR FOOT -Current Size (cm) - Length 0.8 -Current Size (cm) - Width 1.8 -Current Size (cm) - Depth 0.1 -Total Square Cm 1.44 -Photo Taken No -Exudate Amt Small -Exudate Type Serosanguineous -Wound Margin Distinct, Outline Attached -Granulation Amt Large (67-100%) -Granulation Quality [place] -Necrosis Amt Small (1-33%) -Necrotic Tissue Type Adherent Slough -Structure Exposed N/A -Texture (Shannon-wound Skin Appearance) Scarring -Moisture (Shannon-wound Skin Appearance Dry/Scaly ) -Color (Shannon-wound Skin Appearance) Rubor -Temperature (Shannon-wound Skin No Abnormality Appearance) (Pt Warm) -Tenderness on Palpation (Shannon-wound No Skin Appearance) -Ulcer Cleansing Wound Cleanser -Foul Odor after Cleansing No -Anesthetic Used 4% Lidocaine Solution - Nurse 2 - General Ulcer CM Notes Start: 11/25/19 15:29 Freq: Status: Active Protocol: Activity Type Activity Date Activity User E-Sign Co-Sign Detail Recorded Client Recorded Date Recorded By Document 12/09/19 09:30 EULOGIO [id number] 12/09/19 09:37 EULOGIO 12/09/19 09:30 Wound Center Nurse 2 [Procedure/Treatment] -Time 09:36 -Correct Patient Yes -Correct Side, Site, Position Yes -Correct Procedure Yes -Procedure Performed Yes -Type of Procedure Debridement -Clinical Debridement Subcutaneous -Post Debridement Size (cm) - Length 1.5 -Post Debridement Size (cm) - Width 1.8 -Post Debridement Size (cm) - Depth 0.2 -Total Square Cm 2.70 -Wound/Ulcer Outcome Not Healed -Ulcer Cleansing Rinsed/ Irrigated with Saline -Foul Odor after Cleansing No -Bioengineered Tissue Yes -Type of bioengineered Tissue EPIFIX -Expiration Date 05/28/24 -Product Lot Number [id number] -Percent Used 100 -Saline Lot Number [id number] -Bleeding Controlled with Pressure -Offloading Yes -Type of Offloading Total Contact Cast (TCC) -Treatment Response Procedure Tolerated Well [See Physician Procedure note for Specifics] Pain Scale: 0-10 Numeric [Pain] -Is Patient Pain Free? Yes Musculoskeletal: No Tenderness to Palpation of Joints or Extremities, Muscle Wasting, - - Charcot foot is chronic and not active. There is no laxity, increased warmth or redness Neurological: - - Lack of normal epicritic sensation Psych/Mental Status: Normal Affect, Appropriate, Restless Debridement Note Post-Debridement Measurements/Treatment - Nurse 2 - General Ulcer CM Notes Start: 11/25/19 15:29 Freq: Status: Active Protocol: Activity Type Activity Date Activity User E-Sign Co-Sign Detail Recorded Client Recorded Date Recorded By Document 11/25/19 16:43 JF [id number] 11/25/19 16:46 JF Document 12/02/19 16:31 PL [id number] 12/02/19 16:31 PL Document 12/09/19 09:30 [id number] 12/09/19 09:37 11/25/19 12/02/19 12/09/19 16:43 16:31 09:30 Wound Center Nurse 2 #3- L PLANTAR FOOT -Time 16:44 16:15 09:36 -Correct Patient Yes Yes Yes -Correct Side, Site, Position Yes Yes Yes -Correct Procedure Yes Yes Yes -Procedure Performed Yes Yes Yes -Type of Procedure Debridement Debridement Debridement -Clinical Debridement Subcutaneous Subcutaneous Subcutaneous -Post Debridement Size (cm) - Length 2.4 1.5 1.5 -Post Debridement Size (cm) - Width 2.8 1.8 1.8 -Post Debridement Size (cm) - Depth 0.1 0.2 0.2 -Total Square Cm 6.72 2.70 2.70 -Wound/Ulcer Outcome Not Healed Not Healed Not Healed -Ulcer Cleansing Rinsed/ Rinsed/ Rinsed/ Irrigated with Irrigated with Irrigated with Saline Saline Saline -Foul Odor after Cleansing No No No -Bioengineered Tissue No Yes -Type of bioengineered Tissue EPIFIX -Expiration Date 05/28/24 -Product Lot Number [id number] -Percent Used 100 -Saline Lot Number [id number] -Bleeding Controlled with Pressure Pressure Pressure -Offloading Yes Yes -Type of Offloading Total Contact Total Contact Cast (TCC) Cast (TCC) -Treatment Response Procedure Procedure Procedure Tolerated Well Tolerated Well Tolerated Well Pain Scale: 0-10 Numeric Is Patient Pain Free? Yes Yes Yes Wound debrided: plantar foot Laterality: Left Wound Grade/Stage: grade 1 Type of Debridement: Excisional debridement Anesthesia Used: 5% Lidocaine Gel Depth: in the subcutaneous layer Percentage of wound debrided: 100 Instrument Used: #15 blade Tissue Removed: fibrous, devitalized subcutaneous, biofilm, slough Severity: Fat Layer Exposed Amount of bleeding with debridement: Mild Bleeding Controlled with: Pressure Patient tolerated procedure well Assessment/Plan Assessment: Left foot plantar ulcer, britt grade 1, no infection. Midfoot Charcot deformity, left. Diabetes with neuropathy. Malnutrition suspected. Other comorbidities Plan: I reviewed and discussed her case. Debridement was performed in a subcutaneous excisional manner as noted in the clinical panel. Strict offloading as needed to help this heal. She did not have maceration today. Recommend reapplication of the total contact cast today, and she is amendable. Advanced wound healing product will be considered after this ulcer has been present and documented to be open for at least 1 month. She qualifies at this time. It is that time and this is medically necessary. Verbal consent was obtained and this was applied, epi-fix, in standard fashion. This was secured with a wound veil and Steri-Strips. The indication, benefits, anticipated healing time and management were discussed again today. To continue control her glycemic levels to optimize healing and to take nutritional supplementation optimize healing as well. Her labs from recent times were previously reviewed. She did not have leukocytosis and her white blood cell count 8.0. Her creatinine function is diminished and she is functioning with reduced kidney ability. Her hemoglobin A1c was 7.2% in May 2019. Left foot x-rays were obtained at the foot and ankle center recently and it did not demonstrate any acute fracture, dislocation, soft tissue emphysema, or foreign body. There is osseous disruption at the midfoot consistent with Charcot deformity with consolidation and rocker-bottom foot with prominent plantar foot bone prominence. This is consistent with her prior serial x-rays. She also verbally agreed to having a total contact cast applied. This was applied in a neutral position well-padded manner according to standard protocol. She tolerated this well. She will keep this clean, dry, and intact until follow-up next week. This will reduce her edema and also offload the ulcer site. I answered her questions. She will return to the wound healing center in 1 week or call sooner if she has any questions or concerns. She is reassured no local or systemic signs of illness are noted or suspected today.
[2019-12-16 14:03] VITALS: BP 124/47; PULSE 71; RESP 16; TEMP 36.6; BMI 31.7
--- NOTE | 2019-12-16 15:21 | PN.PCM_ITS ---
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 Current Visit: Yes Code(s): L97.522 - Non-pressure chronic ulcer of other part of left foot with fat layer exposed (2) Charcot's joint of left foot Status: Chronic Current Visit: Yes Code(s): M14.672 - Charcot's joint, left ankle and foot (3) Type 2 diabetes mellitus with diabetic polyneuropathy Status: Chronic Current Visit: Yes Code(s): E11.42 - Type 2 diabetes mellitus with diabetic polyneuropathy Type of Wound Date of Service: 12/16/19 Chief Complaint: Left foot History of Wound: This is 74-year-old female with diabetic neuropathy history of Charcot left foot with rocker-bottom deformity, coronary artery disease and other comorbidities sustained a blister in early October 2019. This became an open wound on her clinical visit November 02, 2019. She continues to walk on this. She denies fever, chill, nausea, vomiting. She kept her total contact cast clean, dry, and intact and did very well this past week. Progress of Wound: Improving - Physical Exam Vital Signs Temp Pulse Resp BP 98 F 71 16 124/47 H 12/16/19 14:03 12/16/19 14:03 12/16/19 14:03 12/16/19 14:03 General: Alert, Oriented x3, Cooperative, No apparent distress Extremities: No cyanosis, Capillary Refill Less than 3 Seconds, No Calf Tende rness, Diminished Peripheral Pulses, Edema - Decreased Skin: Ulcer/ Wound - No purulence, erythema, streaking, odor, infection. The adjacent skin is hairless and atrophic. There is significant peripheral epithelialization noted and she is doing well. Wound Measurements and Assessment WC - Nurse 1 - General Ulcer Measurement Start: 11/25/19 15:29 Freq: Status: Active Protocol: Activity Type Activity Date Activity User E-Sign Co-Sign Detail Recorded Client Recorded Date Recorded By Document 12/16/19 14:03 [facility] [id number] 12/16/19 14:13 [facility] 12/16/19 14:03 Wound Center Nurse 1 [Ulcer Assessment] #3- L PLANTAR FOOT -Combined with other wound No -Current Size (cm) - Length 0.3 -Current Size (cm) - Width 0.5 -Current Size (cm) - Depth 0.1 -Total Square Cm 0.15 -Photo Taken No -Epithelialization Large 67-100% -Tunneling No -Undermining/Tunneling No -Circular Undermining No -Exudate Amt Small -Exudate Type Serosanguineous -Wound Margin Flat & Intact -Granulation Amt Large (67-100%) -Granulation Quality Pale,Red -Slough/Fibrin No -Necrosis Amt None Present (0 %) -Texture (Shannon-wound Skin Appearance) Assessed -Moisture (Shannon-wound Skin Appearance Assessed, ) Maceration,Dry/ Scaly -Color (Shannon-wound Skin Appearance) Assessed -Temperature (Shannon-wound Skin No Abnormality Appearance) (Pt Warm) -Tenderness on Palpation (Shannon-wound No Skin Appearance) -Ulcer Cleansing soapy water -Foul Odor after Cleansing No -Anesthetic Used 5% Lidocaine Gel WC - Nurse 2 - General Ulcer CM Notes Start: 11/25/19 15:29 Freq: Status: Active Protocol: Activity Type Activity Date Activity User E-Sign Co-Sign Detail Recorded Client Recorded Date Recorded By Document 12/16/19 14:39 [email or web address] [id number] 12/16/19 14:40 12/16/19 14:39 Wound Center Nurse 2 [Procedure/Treatment] -Time 14:40 -Correct Patient Yes -Correct Side, Site, Position Yes -Correct Procedure Yes -Procedure Performed Yes -Type of Procedure Debridement -Clinical Debridement Subcutaneous -Post Debridement Size (cm) - Length 0.4 -Post Debridement Size (cm) - Width 0.5 -Post Debridement Size (cm) - Depth 0.1 -Total Square (cm) 0.20 -Wound/Ulcer Outcome Not Healed -Ulcer Cleansing Rinsed/ Irrigated with Saline -Foul Odor after Cleansing No -Bioengineered Tissue No -Bleeding Controlled with Pressure -Offloading Yes -Type of Offloading Total Contact Cast (TCC) -Treatment Response Procedure Tolerated Well [See Physician Procedure note for Specifics] Pain Scale: 0-10 Numeric [Pain] -Is Patient Pain Free? Yes Musculoskeletal: No Tenderness to Palpation of Joints or Extremities, Muscle Wasting, - - Rocker-bottom nonacute Charcot foot is noted Neurological: - - Lack of epicritic sensation light touch is consistent with neuropathy status Psych/Mental Status: Normal Affect, Appropriate Debridement Note Post-Debridement Measurements/Treatment WC - Nurse 2 - General Ulcer CM Notes Start: 11/25/19 15:29 Freq: Status: Active Protocol: Activity Type Activity Date Activity User E-Sign Co-Sign Detail Recorded Client Recorded Date Recorded By Document 11/25/19 16:43 JF [id number] 11/25/19 16:46 JF Document 12/02/19 16:31 PL [id number] 12/02/19 16:31 PL Document 12/09/19 09:30 [id number] 12/09/19 09:37 JF Document 12/16/19 14:39 [id number] 12/16/19 14:40 JF 11/25/19 12/02/19 12/09/19 16:43 16:31 09:30 Wound Center Nurse 2 #3- L PLANTAR FOOT -Time 16:44 16:15 09:36 -Correct Patient Yes Yes Yes -Correct Side, Site, Position Yes Yes Yes -Correct Procedure Yes Yes Yes -Procedure Performed Yes Yes Yes -Type of Procedure Debridement Debridement Debridement -Clinical Debridement Subcutaneous Subcutaneous Subcutaneous -Post Debridement Size (cm) - Length 2.4 1.5 1.5 -Post Debridement Size (cm) - Width 2.8 1.8 1.8 -Post Debridement Size (cm) - Depth 0.1 0.2 0.2 -Total Square (cm) 6.72 2.70 2.70 -Wound/Ulcer Outcome Not Healed Not Healed Not Healed -Ulcer Cleansing Rinsed/ Rinsed/ Rinsed/ Irrigated with Irrigated with Irrigated with Saline Saline Saline -Foul Odor after Cleansing No No No -Bioengineered Tissue No Yes -Type of bioengineered Tissue EPIFIX -Expiration Date 05/28/24 -Product Lot Number [id number] -Percent Used 100 -Saline Lot Number [id number] -Bleeding Controlled with Pressure Pressure Pressure -Offloading Yes Yes -Type of Offloading Total Contact Total Contact Cast (TCC) Cast (TCC) -Treatment Response Procedure Procedure Procedure Tolerated Well Tolerated Well Tolerated Well Pain Scale: 0-10 Numeric Is Patient Pain Free? Yes Yes Yes 12/16/19 14:39 Wound Center Nurse 2 #3- L PLANTAR FOOT -Time 14:40 -Correct Patient Yes -Correct Side, Site, Position Yes -Correct Procedure Yes -Procedure Performed Yes -Type of Procedure Debridement -Clinical Debridement Subcutaneous -Post Debridement Size (cm) - Length 0.4 -Post Debridement Size (cm) - Width 0.5 -Post Debridement Size (cm) - Depth 0.1 -Total Square (cm) 0.20 -Wound/Ulcer Outcome Not Healed -Ulcer Cleansing Rinsed/ Irrigated with Saline -Foul Odor after Cleansing No -Bioengineered Tissue No -Type of bioengineered Tissue -Expiration Date -Product Lot Number -Percent Used -Saline Lot Number -Bleeding Controlled with Pressure -Offloading Yes -Type of Offloading Total Contact Cast (TCC) -Treatment Response Procedure Tolerated Well Pain Scale: 0-10 Numeric Is Patient Pain Free? 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 Midfoot Charcot deformity, left. Diabetes with neuropathy. Malnutrition suspected. Other comorbidities Plan: I reviewed and discussed her case. Debridement was performed in a subcutaneous excisional manner as noted in the clinical panel. Strict offloading as needed to help this heal. She did not have maceration today. Recommend reapplication of the total contact cast today, and she is amendable. Lotus was applied today prior to total contact casting in the neutral rectus position in a well-padded manner. She tolerated this well. To continue control her glycemic levels to optimize healing and to take nutritional supplementation optimize healing as well. Her labs from recent times were previously reviewed. She did not have leukocytosis and her white blood cell count 8.0. Her creatinine function is diminished and she is functioning with reduced kidney ability. Her hemoglobin A1c was 7.2% in May 2019. Left foot x-rays were obtained at the foot and ankle center recently and it did not demonstrate any acute fracture, dislocation, soft tissue emphysema, or foreign body. There is osseous disruption at the midfoot consistent with Charcot deformity with consolidation and rocker-bottom foot with prominent plantar foot bone prominence. This is consistent with her prior serial x-rays. She will keep the total contact cast clean, dry, and intact until follow-up next week. This will reduce her edema and also offload the ulcer site. I answered her questions. She will return to the wound healing center in 1 week or call sooner if she has any questions or concerns. She is reassured no local or systemic signs of illness are noted or suspected today.
[2019-12-23 14:48] VITALS: BP 164/77; PULSE 78; RESP 16; TEMP 36.6; BMI 31.7
--- NOTE | 2019-12-23 16:39 | PN.PCM_ITS ---
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 Code(s): L97.522 - Non-pressure chronic ulcer of other part of left foot with fat layer exposed (2) Charcot's joint of left foot Status: Chronic Code(s): M14.672 - Charcot's joint, left ankle and foot (3) Type 2 diabetes mellitus with diabetic polyneuropathy Status: Chronic Code(s): E11.42 - Type 2 diabetes mellitus with diabetic polyneuropathy Type of Wound Date of Service: 12/23/19 Chief Complaint: Left foot History of Wound: This is 74-year-old female with diabetic neuropathy history of Charcot left foot with rocker-bottom deformity, coronary artery disease and other comorbidities sustained a blister in early October 2019. This became an open wound on her clinical visit November 02, 2019. She denies fever, chill, nausea, vomiting. She kept her total contact cast clean, dry, and intact and did very well this past week. She reports she had some difficulty with the rubbing sensation from a total contact cast this past week and requests a week off of wearing the cast if possible. Progress of Wound: Improving - Physical Exam Vital Signs Temp Pulse Resp BP 98 F 78 16 164/77 H 12/23/19 14:48 12/23/19 14:48 12/23/19 14:48 12/23/19 14:48 General: Alert, Oriented x3, Cooperative, No apparent distress Extremities: No cyanosis, Capillary Refill Less than 3 Seconds, No Calf Tenderness, Diminished Peripheral Pulses, Edema - Decreased, - - Rocker-bottom Charcot foot deformity noted Skin: Ulcer/ Wound - No purulence, erythema, streaking, odor, infection. Her ulcer base is granular and she has atrophic adjacent skin. No new evidence of skin irritation or blisters or skin discontinuity noted Wound Measurements and Assessment WC - Nurse 1 - General Ulcer Measurement Start: 11/25/19 15:29 Freq: Status: Active Protocol: Activity Type Activity Date Activity User E-Sign Co-Sign Detail Recorded Client Recorded Date Recorded By Document 12/23/19 14:48 [facility] [id number] 12/23/19 15:00 [facility] 12/23/19 14:48 Wound Center Nurse 1 [Ulcer Assessment] #3- L PLANTAR FOOT -Combined with other wound No -Current Size (cm) - Length 0.1 -Current Size (cm) - Width 0.1 -Current Size (cm) - Depth 0.1 -Total Square Cm 0.01 -Photo Taken No -Epithelialization Large 67-100% -Tunneling No -Undermining/Tunneling No -Circular Undermining No -Exudate Amt Small -Exudate Type Serosanguineous -Texture (Shannon-wound Skin Appearance) Assessed -Moisture (Shannon-wound Skin Appearance Assessed,Dry/ ) Scaly -Color (Shannon-wound Skin Appearance) Assessed, Erythema -Temperature (Shannon-wound Skin No Abnormality Appearance) (Pt Warm) -Tenderness on Palpation (Shannon-wound Yes Skin Appearance) -Ulcer Cleansing soapy water -Foul Odor after Cleansing No -Anesthetic Used 5% Lidocaine Gel WC - Nurse 2 - General Ulcer CM Notes Start: 11/25/19 15:29 Freq: Status: Active Protocol: Activity Type Activity Date Activity User E-Sign Co-Sign Detail Recorded Client Recorded Date Recorded By Document 12/23/19 15:37 [id number] 12/23/19 15:38 12/23/19 15:37 Wound Center Nurse 2 [Procedure/Treatment] -Time 15:37 -Correct Patient Yes -Correct Side, Site, Position Yes -Correct Procedure Yes -Procedure Performed Yes -Type of Procedure Debridement -Clinical Debridement Subcutaneous -Post Debridement Size (cm) - Length 0.6 -Post Debridement Size (cm) - Width 0.7 -Post Debridement Size (cm) - Depth 0.1 -Total Square (cm) 0.42 -Wound/Ulcer Outcome Not Healed -Ulcer Cleansing Rinsed/ Irrigated with Saline -Foul Odor after Cleansing No -Bioengineered Tissue Yes -Type of bioengineered Tissue EPIFIX -Expiration Date 08/25/24 -Product Lot Number [id number] -Percent Used 100 -Saline Lot Number [id number] -Bleeding Controlled with Pressure -Offloading Yes -Type of Offloading Camwalker -Treatment Response Procedure Tolerated Well [See Physician Procedure note for Specifics] Pain Scale: 0-10 Numeric [Pain] -Is Patient Pain Free? Yes Musculoskeletal: No Muscle Wasting Neurological: - - Lack of epicritic sensation light touch is consistent with neuropathy status Psych/Mental Status: Normal Affect, Appropriate Debridement Note Post-Debridement Measurements/Treatment WC - Nurse 2 - General Ulcer CM Notes Start: 11/25/19 15:29 Freq: Status: Active Protocol: Activity Type Activity Date Activity User E-Sign Co-Sign Detail Recorded Client Recorded Date Recorded By Document 11/25/19 16:43 JF [id number] 11/25/19 16:46 Document 12/02/19 16:31 PL [id number] 12/02/19 16:31 PL Document 12/09/19 09:30 [id number] 12/09/19 09:37 Document 12/16/19 14:39 [id number] 12/16/19 14:40 JF Document 12/23/19 15:37 [id number] 12/23/19 15:38 11/25/19 12/02/19 12/09/19 16:43 16:31 09:30 Wound Center Nurse 2 #3- L PLANTAR FOOT -Time 16:44 16:15 09:36 -Correct Patient Yes Yes Yes -Correct Side, Site, Position Yes Yes Yes -Correct Procedure Yes Yes Yes -Procedure Performed Yes Yes Yes -Type of Procedure Debridement Debridement Debridement -Clinical Debridement Subcutaneous Subcutaneous Subcutaneous -Post Debridement Size (cm) - Length 2.4 1.5 1.5 -Post Debridement Size (cm) - Width 2.8 1.8 1.8 -Post Debridement Size (cm) - Depth 0.1 0.2 0.2 -Total Square (cm) 6.72 2.70 2.70 -Wound/Ulcer Outcome Not Healed Not Healed Not Healed -Ulcer Cleansing Rinsed/ Rinsed/ Rinsed/ Irrigated with Irrigated with Irrigated with Saline Saline Saline -Foul Odor after Cleansing No No No -Bioengineered Tissue No Yes -Type of bioengineered Tissue EPIFIX -Expiration Date 05/28/24 -Product Lot Number [id number] -Percent Used 100 -Saline Lot Number [id number] -Bleeding Controlled with Pressure Pressure Pressure -Offloading Yes Yes -Type of Offloading Total Contact Total Contact Cast (TCC) Cast (TCC) -Treatment Response Procedure Procedure Procedure Tolerated Well Tolerated Well Tolerated Well Pain Scale: 0-10 Numeric Is Patient Pain Free? Yes Yes Yes 12/16/19 12/23/19 14:39 15:37 Wound Center Nurse 2 #3- L PLANTAR FOOT -Time 14:40 15:37 -Correct Patient Yes Yes -Correct Side, Site, Position Yes Yes -Correct Procedure Yes Yes -Procedure Performed Yes Yes -Type of Procedure Debridement Debridement -Clinical Debridement Subcutaneous Subcutaneous -Post Debridement Size (cm) - Length 0.4 0.6 -Post Debridement Size (cm) - Width 0.5 0.7 -Post Debridement Size (cm) - Depth 0.1 0.1 -Total Square (cm) 0.20 0.42 -Wound/Ulcer Outcome Not Healed Not Healed -Ulcer Cleansing Rinsed/ Rinsed/ Irrigated with Irrigated with Saline Saline -Foul Odor after Cleansing No No -Bioengineered Tissue No Yes -Type of bioengineered Tissue EPIFIX -Expiration Date 08/25/24 -Product Lot Number [id number] -Percent Used 100 -Saline Lot Number [id number] -Bleeding Controlled with Pressure Pressure -Offloading Yes Yes -Type of Offloading Total Contact Camwalker Cast (TCC) -Treatment Response Procedure Procedure Tolerated Well Tolerated Well Pain Scale: 0-10 Numeric Is Patient Pain Free? Yes Yes Wound debrided: plantar foot Laterality: Left Wound Grade/Stage: grade 1 Type of Debridement: Excisional debridement Anesthesia Used: 5% Lidocaine Gel Depth: in the subcutaneous layer Percentage of wound debrided: 100 Instrument Used: #15 blade Tissue Removed: fibrous, devitalized subcutaneous, biofilm, slough Severity: Fat Layer Exposed Amount of bleeding with debridement: Mild Bleeding Controlled with: Pressure Patient tolerated procedure well Assessment/Plan Assessment: Left foot plantar ulcer, britt grade 1, no infection. Midfoot Charcot deformity, left. Diabetes with neuropathy. Malnutrition suspected. Other comorbidities Plan: I reviewed and discussed her case. Debridement was performed in a subcutaneous excisional manner as noted in the clinical panel. Strict offloading as needed to help this heal. Recommend reapplication of the total contact cast today, and she defers today. She will consider this next week. She is amenable to have the recommended advanced wound healing product, epi-fix applied today. Verbal consent was obtained and this was applied according standard protocol. This was moistened and further secured with a wound veil and Steri- Strips. She tolerated the procedure well. She understands the benefits. This is medically necessary for limb salvage. To continue control her glycemic levels to optimize healing and to take nutritional supplementation optimize healing as well. Her labs from recent times were previously reviewed. She did not have leukocytosis and her white blood cell count 8.0. Her creatinine function is diminished and she is functioning with reduced kidney ability. Her hemoglobin A1c was 7.2% in May 2019. Left foot x-rays were obtained at the foot and ankle center recently and it did not demonstrate any acute fracture, dislocation, soft tissue emphysema, or foreign body. There is osseous disruption at the midfoot consistent with Charcot deformity with consolidation and rocker-bottom foot with prominent plantar foot bone prominence. This is consistent with her prior serial x-rays. She will keep the total contact cast clean, dry, and intact until follow-up next week. This will reduce her edema and also offload the ulcer site. I answered her questions. She will return to the wound healing center in 1 week or call sooner if she has any questions or concerns. She is reassured no local or systemic signs of illness are noted or suspected today.
== END 2019-12-25 23:59 ==
LOC: WC 14:30
PROVIDERS: PCP Family Medicine; Visit Provider Podiatrist
DX: E11.621 Type 2 diabetes mellitus with foot ulcer (principal); E11.42 Type 2 diabetes mellitus with diabetic polyneuropathy; L97.522 Non-pressure chronic ulcer of other part of left foot with fat layer exposed; E11.610 Type 2 diabetes mellitus with diabetic neuropathic arthropathy; I25.10 Atherosclerotic heart disease of native coronary artery without angina pectoris
CPT/HCPCS: 11042; 15275; 29445; Q4186

== ENCOUNTER → 2019-12-25 13:38 | Outpatient (CLI) | payer MEDICARE, OTHER, SELFPAY ==
[2019-12-23 14:48] VITALS: BMI 31.7
[2019-12-25 15:21] LABS: Erythrocyte Sedimentation Rate 37 mm/hr (0-30)
[2019-12-25 15:23] LABS: Absolute Lymphocyte Count 2.11 X10^3/uL (0.83-4.51); Basophil# 0.02 X10^3/uL; Basophil% 0.3 % (0-1); Eosinophil# 0.23 X10^3/uL; Eosinophils% 3.2 % (0-5); Hematocrit 34.3 % (37-47); Lymphocyte # 2.11 X10^3/ul (4.0); Lymphocyte % 29.5 % (19-41); Mean Corp Hgb Conc 29.2 g/dL (32-36); Mean Corpuscular Hgb 24.8 pg (27.0-32.0); Mean Corpuscular Volume 84.9 fL (81-99); Mean Platelet Vol. 10.3 fl (6.2-12.0); Monocyte# 0.75 X10^3/uL; Monocyte% 10.5 % (0-10); NRBC Flagged by Analyzer 0 % (0-5); Neutrophil # 4.02 X10^3/uL (2.7-7.7); Neutrophil % 56.1 % (47-70); Platelet Count 244 K/mm3 (150-450); RBC Distribution Width CV 15.2 % (11.6-14.6); RBC Distribution Width SD 47.4 fl (35.1-43.9); Red Blood Count 4.04 M/mm3 (4.2-5.4); White Blood Count 7.2 K/mm3 (4.4-11.0)
[2019-12-25 15:43] LABS: ALB/GLOB Ratio 0.7 RATIO (0.9-2.4); AST(SGOT) 12 U/L (15-37); Alanine Aminotransfer ALT/SGPT 21 U/L (13-56); Alkaline Phosphatase 85 U/L (45-117); Anion Gap 4 (5-15); BUN 33 mg/dL (7-18); BUN/Creat Ratio 23.9 RATIO (10-20); Calcium,Total 8.3 mg/dL (8.5-10.1); Chloride 109 mmol/L (98-107); Creatinine, Serum 1.38 mg/dL (0.55-1.02); EST Glomerular Filtration Rate 40 mL/min (>60); Est Glom Filt Rate - Afr Amer 48 mL/min (>60); Globulin 4.2 g/dL (2.2-4.2); Glucose 65 mg/dL (74-106); Potassium 4.9 mmol/L (3.5-5.1); Protein, Total 7.2 g/dL (6.4-8.2); Sodium Level 137 mmol/L (136-145); Thyroid Stim Hormone (TSH) 0.95 uIU/mL (0.358-3.74)
== END ==
PROVIDERS: PCP Family Medicine; Referring Provider Family Medicine; Visit Provider Family Medicine
DX: R53.83 Other fatigue (principal); G89.4 Chronic pain syndrome
CPT/HCPCS: 36415; 80053; 84443; 85025; 85652

== ENCOUNTER 2019-12-30 08:37 | Outpatient (RCR) | payer MEDICARE, OTHER, SELFPAY ==
[2019-12-26 00:36] VITALS: BP 164/77; PULSE 78; RESP 16; TEMP 36.6
[2019-12-30 15:05] VITALS: BP 117/36; PULSE 80; RESP 16; TEMP 36.6; BMI 31.7
--- NOTE | 2019-12-30 16:37 | PCM.WC.PN ---
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: Resolved Code(s): L97.522 - Non-pressure chronic ulcer of other part of left foot with fat layer exposed (2) Charcot's joint of left foot Status: Chronic Code(s): M14.672 - Charcot's joint, left ankle and foot (3) Type 2 diabetes mellitus with diabetic polyneuropathy Status: Chronic Code(s): E11.42 - Type 2 diabetes mellitus with diabetic polyneuropathy Type of Wound Date of Service: 12/30/19 Chief Complaint: Left foot History of Wound: This is 74-year-old female with diabetic neuropathy history of Charcot left foot with rocker-bottom deformity, coronary artery disease and other comorbidities sustained a blister in early October 2019. This became an open wound on her clinical visit November 02, 2019. She denies fever, chill, nausea, vomiting. She kept her total contact cast clean, dry, and intact and did very well this past week. Progress of Wound: Healed - Physical Exam Vital Signs Temp Pulse Resp BP 98 F 80 16 117/36 L 12/30/19 15:05 12/30/19 15:05 12/30/19 15:05 12/30/19 15:05 General: Alert, Oriented x3, Cooperative, No apparent distress Extremities: No cyanosis, Capillary Refill Less than 3 Seconds, No Calf Tenderness, Diminished Peripheral Pulses, Edema - Mild, - - Rocker-bottom foot with medial prominence consistent with chronic Charcot. There is no evidence of acute Charcot such as no laxity, increased warmth, or crepitus with manipulation Skin: Ulcer/ Wound - No purulence, erythema, streaking, odor, infection. There is full epithelialization and his ulcer site is healed today. Her skin in general is hairless and atrophic Wound Measurements and Assessment WC - Nurse 1 - General Ulcer Measurement Start: 12/30/19 15:04 Freq: Status: Active Protocol: Activity Type Activity Date Activity User E-Sign Co-Sign Detail Recorded Client Recorded Date Recorded By Document 12/30/19 15:05 [facility] [id number] 12/30/19 15:15 [facility] 12/30/19 15:05 Wound Center Nurse 1 [Ulcer Assessment] #3- L PLANTAR FOOT -Combined with other wound No -Current Size (cm) - Length 0.1 -Current Size (cm) - Width 0.1 -Current Size (cm) - Depth 0.1 -Total Square Cm 0.01 -Date of Last Picture (Recall this 12/30/19 field) -Photo Taken Yes -Epithelialization Large 67-100% -Tunneling No -Undermining/Tunneling No -Circular Undermining No -Exudate Amt None Present -Slough/Fibrin Yes -Necrosis Amt Small (1-33%) -Necrotic Tissue Type Adherent Slough -Texture (Hsannon-wound Skin Appearance) Assessed, Scarring -Moisture (Shannon-wound Skin Appearance Assessed ) -Color (Shannon-wound Skin Appearance) Assessed -Temperature (Shannon-wound Skin No Abnormality Appearance) (Pt Warm) -Tenderness on Palpation (Shannon-wound No Skin Appearance) -Ulcer Cleansing soapy water -Foul Odor after Cleansing No -Anesthetic Used 5% Lidocaine Gel WC - Nurse 2 - General Ulcer CM Notes Start: 12/30/19 15:04 Freq: Status: Active Protocol: Activity Type Activity Date Activity User E-Sign Co-Sign Detail Recorded Client Recorded Date Recorded By Document 12/30/19 15:28 [id number] 12/30/19 15:34 12/30/19 15:28 Wound Center Nurse 2 [Procedure/Treatment] -Correct Patient No -Correct Side, Site, Position No -Correct Procedure No -Procedure Performed No -Post Debridement Size (cm) - Length 0 -Post Debridement Size (cm) - Width 0 -Post Debridement Size (cm) - Depth 0 -Total Square (cm) 0 -Wound/Ulcer Outcome Healed- Epithelialized [See Physician Procedure note for Specifics] Pain Scale: 0-10 Numeric [Pain] -Is Patient Pain Free? Yes Musculoskeletal: No Tenderness to Palpation of Joints or Extremities, Muscle Wasting Neurological: - - Lack of normal epicritic sensation consistent with neuropathy status Psych/Mental Status: Normal Affect, Appropriate Debridement Note Post-Debridement Measurements/Treatment - Nurse 2 - General Ulcer CM Notes Start: 12/30/19 15:04 Freq: Status: Active Protocol: Activity Type Activity Date Activity User E-Sign Co-Sign Detail Recorded Client Recorded Date Recorded By Document 12/30/19 15:28 JF [id number] 12/30/19 15:34 12/30/19 15:28 Wound Center Nurse 2 #3- L PLANTAR FOOT -Correct Patient No -Correct Side, Site, Position No -Correct Procedure No -Procedure Performed No -Post Debridement Size (cm) - Length 0 -Post Debridement Size (cm) - Width 0 -Post Debridement Size (cm) - Depth 0 -Total Square (cm) 0 -Wound/Ulcer Outcome Healed- Epithelialized Pain Scale: 0-10 Numeric Is Patient Pain Free? Yes No debridement was completed today - healed today Assessment/Plan Assessment: Left foot plantar ulcer, britt grade 1 --healed today. Midfoot Charcot deformity, left. Diabetes with neuropathy. Malnutrition suspected. Other comorbidities Plan: I reviewed and discussed her case. Debridement was not performed because the ulcer site is healed. She was advised to discontinue dressing care. She understands her skin is still considered very friable and she needs to offload to allow skin remodeling. She will return to [place] walker boot. To check feet daily. To wear protective shoe gear. She will return to the foot and ankle center within the next 2 to 4 weeks to confirm this has remained healed and also for palliative nail care. She is discharged from the wound healing center at this time. I answered all of her questions. She is also advised to maintain proper glycemic control. She was reassured there are no signs of infection or acute Charcot evidence noted today.
== END 2019-12-31 10:13 | disposition home or self-care (01) ==
LOC: WC 08:37
PROVIDERS: PCP Family Medicine; Visit Provider Podiatrist
DX: Z09 Encounter for follow-up examination after completed treatment for conditions other than malignant neoplasm (principal); E11.42 Type 2 diabetes mellitus with diabetic polyneuropathy; E11.610 Type 2 diabetes mellitus with diabetic neuropathic arthropathy; I25.10 Atherosclerotic heart disease of native coronary artery without angina pectoris; Z79.02 Long term (current) use of antithrombotics/antiplatelets; Z79.82 Long term (current) use of aspirin; Z79.4 Long term (current) use of insulin; Z79.899 Other long term (current) drug therapy
CPT/HCPCS: 99212; G0463

== ENCOUNTER → 2020-02-03 | Outpatient (CLI) | payer MEDICARE, OTHER, SELFPAY ==
[2020-02-03 09:46] VITALS: BMI 34.7
== END | disposition home or self-care (01) ==
LOC: LABSPEC 12:11
PROVIDERS: PCP Family Medicine; Referring Provider Surgery; Visit Provider Surgery
DX: L98.492 Non-pressure chronic ulcer of skin of other sites with fat layer exposed (principal); Z98.890 Other specified postprocedural states; Z87.19 Personal history of other diseases of the digestive system
CPT/HCPCS: 87070; 87077; 87186; 87205

== ENCOUNTER → 2020-02-11 15:01 | Outpatient (CLI) | payer MEDICARE, OTHER, SELFPAY ==
[2020-02-03 09:46] VITALS: BMI 34.7
[2020-02-10 13:38] VITALS: BMI 34.7
--- NOTE | 2020-02-11 15:02 | CT_ITS ---
STUDY: CT ABDOMEN AND PELVIS WITH CONTRAST REASON FOR EXAM: Female, 74 years old. ABD WALL ULCER X 3 WEEKS RADIATION DOSAGE (If Supplied By Facility): CTDIvol = ( 18.06 ) mGy, DLP = ( 1132.81 ) mGycm TECHNIQUE: Transaxial images were obtained from the dome of the diaphragm to the symphysis pubis with oral contrast. Oral and amp; IV Readi-CAT and amp; 100mL Isovue-300 was administered. Sagittal and coronal images were reconstructed. Individualized dose optimization techniques were used for this CT. COMPARISON: Prior chest CT of 09/25/2019 and prior abdomen and pelvic CT exam of 11/14/2016 FINDINGS: Stable chronic bibasilar interstitial changes. Coronary calcification and stent artifact status post prior midline sternotomy. Normal liver. There are surgical clips in the gallbladder fossa consistent with a prior cholecystectomy. Normal spleen. Mild pancreatic atrophy Normal bilateral adrenal glands. Shallow cortical scars of the right kidney. Otherwise normal right kidney without hydronephrosis or stones. Shallow cortical scarring of the left kidney. Otherwise normal left kidney without hydronephrosis or stones. Moderately large hiatal hernia. Otherwise unremarkable stomach status post gastric bypass.. 1 dilated anastomotic small bowel loop. Otherwise nondistended small bowel. Normal stool filled colon. There is non-visualization of the appendix. There is diffuse atherosclerotic calcification of the abdominal aorta, without a demonstrated aneurysm. Normal inferior vena cava. Normal retroperitoneum. Nondistended urinary bladder. Negative for pelvic mass or free fluid of the pelvis. There are 2 minimal fatty hernias of the midline abdominal wall above the umbilicus. She is status post anterior wall hernia repair of the mid and lower abdominal wall with no evidence of recurrent hernia at that level. There is a small opening in the skin in the midline of the lower abdominal wall and near the lower edge of the midline incision which is shallow and doesn''t appear to be associated with an underlying focal fluid collection. There is some dense linear stranding from this region to the muscular wall. There is also an area of skin thickening and slight stranding of underlying fatty tissues that is to the right side of the opening. There are diffuse degenerative changes of the visualized lumbar spine with demineralized osseous structures. CT/Abdomen/Pelvis WITH Contrast IMPRESSION: She is status post an anterior wall hernia repair with no recurrent hernia. There are 2 minimal fatty herniations of the upper abdominal wall above the mesh not included in the hernia repair. There is a minimal shallow opening in the skin surface along the lower edge of the midline abdominal incision which is not appear to be related to any subcutaneous fluid collection. There are bands of scarring in the subcutaneous plane in an area of skin thickening and mild subcutaneous stranding to the right of the midline incision. No other acute abdominal or pelvic findings. Status post cholecystectomy. Pancreatic atrophy. Shallow cortical scars of the kidneys. Hiatal hernia. Stool-filled colon. Electronically Signed: Zoila Alvarado MD at 0:03 EDT , Service support ,
[2020-02-11 15:16] LABS: CREATININE FINGERSTICK 1.1 mg/dL (0.55-1.02)
== END ==
PROVIDERS: PCP Family Medicine; Referring Provider Surgery; Visit Provider Surgery
DX: L98.492 Non-pressure chronic ulcer of skin of other sites with fat layer exposed (principal); Z98.890 Other specified postprocedural states; Z87.19 Personal history of other diseases of the digestive system
CPT/HCPCS: 74177; Q9967; A4216

== ENCOUNTER → 2020-02-17 12:23 | Outpatient (CLI) | payer MEDICARE, OTHER, SELFPAY ==
[2020-02-17 12:23] VITALS: BMI 31.7
[2020-02-17 15:55] LABS: Hematocrit 34.5 % (37-47); Hemoglobin 9.9 g/dL (12.0-15.0); Mean Corpuscular Hgb 23.2 pg (27.0-32.0); Red Blood Count 4.26 M/mm3 (4.2-5.4); White Blood Count 8.7 K/mm3 (4.4-11.0)
[2020-02-17 15:56] LABS: Absolute Lymphocyte Count 2.04 X10^3/uL (0.83-4.51); Absolute Neutrophil Count 5.7 X10^3/uL (2.0-7.7); Basophil# 0.03 X10^3/uL; Basophil% 0.3 % (0-1); Eosinophil# 0.15 X10^3/uL; Eosinophils% 1.7 % (0-5); Lymphocyte # 2.04 X10^3/ul (4.0); Lymphocyte % 23.5 % (19-41); Mean Corp Hgb Conc 28.7 g/dL (32-36); Mean Platelet Vol. 10.2 fl (6.2-12.0); Monocyte% 8.1 % (0-10); NRBC Flagged by Analyzer 0 % (0-5); Neutrophil # 5.71 X10^3/uL (2.7-7.7); Neutrophil % 65.9 % (47-70); Platelet Count 248 K/mm3 (150-450); RBC Distribution Width SD 49.9 fl (35.1-43.9)
[2020-02-17 16:08] LABS: ALB/GLOB Ratio 0.9 RATIO (0.9-2.4); AST(SGOT) 12 U/L (15-37); Alanine Aminotransfer ALT/SGPT 19 U/L (13-56); Albumin, Serum 3.3 g/dL (3.2-5.0); Alkaline Phosphatase 89 U/L (45-117); Anion Gap 7 (5-15); BUN 43 mg/dL (7-18); BUN/Creat Ratio 27.2 RATIO (10-20); Calcium,Total 8.3 mg/dL (8.5-10.1); Chloride 111 mmol/L (98-107); Creatinine, Serum 1.58 mg/dL (0.55-1.02); EST Glomerular Filtration Rate 34 mL/min (>60); Est Glom Filt Rate - Afr Amer 41 mL/min (>60); Globulin 3.6 g/dL (2.2-4.2); Glucose 139 mg/dL (74-106); Potassium 4.3 mmol/L (3.5-5.1); Protein, Total 6.9 g/dL (6.4-8.2); Sodium Level 141 mmol/L (136-145)
[2020-02-17 16:14] LABS: Hemoglobin A1c 7.8 % (3.8-5.6)
== END ==
PROVIDERS: PCP Family Medicine; Referring Provider Family Medicine; Visit Provider Family Medicine
DX: E11.39 Type 2 diabetes mellitus with other diabetic ophthalmic complication (principal); G89.4 Chronic pain syndrome; E11.621 Type 2 diabetes mellitus with foot ulcer; L97.522 Non-pressure chronic ulcer of other part of left foot with fat layer exposed; M14.672 Charcot's joint, left ankle and foot; E11.42 Type 2 diabetes mellitus with diabetic polyneuropathy; I25.10 Atherosclerotic heart disease of native coronary artery without angina pectoris; Z79.02 Long term (current) use of antithrombotics/antiplatelets; Z79.82 Long term (current) use of aspirin; Z79.4 Long term (current) use of insulin; Z79.899 Other long term (current) drug therapy
CPT/HCPCS: 15275; 29445; 36415; 80053; 83036; 85025; Q4186

== ENCOUNTER 2020-02-24 14:15 | Outpatient (RCR) | payer MEDICARE, OTHER, SELFPAY ==
[2020-02-03 09:46] VITALS: BMI 34.7
[2020-02-09 14:41] VITALS: BMI 31.7
[2020-02-10 13:38] VITALS: BP 157/68; PULSE 74; RESP 16; TEMP 37; BMI 34.7
--- NOTE | 2020-02-10 14:02 | PN.PCM_ITS ---
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 Code(s): L97.522 - Non-pressure chronic ulcer of other part of left foot with fat layer exposed (2) Charcot's joint of left foot Status: Chronic Code(s): M14.672 - Charcot's joint, left ankle and foot (3) Type 2 diabetes mellitus with diabetic polyneuropathy Status: Chronic Code(s): E11.42 - Type 2 diabetes mellitus with diabetic polyneuropathy Type of Wound Date of Service: 02/10/20 Chief Complaint: Left foot History of Wound: This is 74-year-old female with diabetic neuropathy history of Charcot left foot with rocker-bottom deformity, coronary artery disease and other comorbidities has a recurrent ulcer within the past 2 weeks. She was re- referred to the wound healing center for application of advanced wound healing product and total contact cast. She denies fever, chill, nausea, vomiting. She has been offloading with cam walker boot. Her ulcer is been the same location as her prior foot ulcer. Progress of Wound: Returned - Physical Exam Vital Signs Temp Pulse Resp BP 98.6 F 74 16 157/68 H 02/10/20 13:38 02/10/20 13:38 02/10/20 13:38 02/10/20 13:38 General: Alert, Oriented x3, Cooperative, No apparent distress HEENT: Atraumatic Extremities: No cyanosis, Capillary Refill Less than 3 Seconds, No Calf Tenderness, Diminished Peripheral Pulses, Edema, - - Rocker-bottom Charcot foot noted. There is no erythema, edema, or laxity at the midfoot Skin: Ulcer/ Wound - No purulence, erythema, string, odor, infection. Adjacent skin is hairless and atrophic. The ulcer bed is granular. There is no deep tissue exposure or bogginess or fluctuance on palpation Wound Measurements and Assessment WC - Nurse 1 - General Ulcer Measurement Start: 02/10/20 13:37 Freq: Status: Active Protocol: Activity Type Activity Date Activity User E-Sign Co-Sign Detail Recorded Client Recorded Date Recorded By Document 02/10/20 13:38 [facility] [id number] 02/10/20 13:41 [facility] 02/10/20 13:38 Wound Center Nurse 1 [Ulcer Assessment] #4- L PLANTAR -Combined with other wound No -Current Size (cm) - Length 2.9 -Current Size (cm) - Width 4 -Current Size (cm) - Depth 0.1 -Total Square Cm 11.6 -Date of Last Picture (Recall this 02/10/20 field) -Photo Taken Yes -Epithelialization None Present -Tunneling No -Undermining/Tunneling No -Circular Undermining No -Exudate Amt None Present -Texture (Shannon-wound Skin Appearance) Assessed,Callus ,Scarring -Moisture (Shannon-wound Skin Appearance Assessed,Dry/ ) Scaly -Color (Shannon-wound Skin Appearance) Assessed -Temperature (Shannon-wound Skin No Abnormality Appearance) (Pt Warm) -Tenderness on Palpation (Shannon-wound No Skin Appearance) -Ulcer Cleansing Rinsed/ Irrigated with Saline -Foul Odor after Cleansing No -Anesthetic Used 4% Lidocaine Solution Musculoskeletal: No Tenderness to Palpation of Joints or Extremities, Muscle Wasting Neurological: - - Lack of normal epicritic sensation is consistent with her neuropathy status Psych/Mental Status: Normal Affect, Appropriate Debridement Note Wound debrided: plantar foot Laterality: Left Wound Grade/Stage: grade 1 Type of Debridement: Excisional debridement Anesthesia Used: 5% Lidocaine Gel Depth: in the subcutaneous layer Percentage of wound debrided: 100 Instrument Used: #15 blade Tissue Removed: fibrous, devitalized subcutaneous, biofilm, slough Severity: Fat Layer Exposed Amount of bleeding with debridement: Mild Bleeding Controlled with: Pressure Patient tolerated procedure well Assessment/Plan Assessment: None left foot plantar ulcer, britt grade 1, returned, no infection. Midfoot Charcot deformity, left. Diabetes with neuropathy. Malnutrition suspected. Other comorbidities Plan: I reviewed and discussed her case. Excisional subcutaneous debridement was performed as noted in the clinical panel. I recommended application of advanced wound healing product, epi-fix in which she is still under her improved timeframe. Verbal consent was obtained and this was applied according standard protocol. This was further secured in place with a wound veil and Steri-Strips. She was advised to keep this clean, dry, and intact until follow-up next week. Additionally verbal consent was obtained to apply the recommended total contact cast in a well-padded in neutral manner. She also tolerated this well. She is reassured no signs of local infection or acute Charcot findings were seen. To follow-up with the wound healing center in 1 week or call sooner if she has any questions or concerns or development of local or systemic infection. I answered all of her questions.
[2020-02-17 14:08] VITALS: BP 141/50; PULSE 72; RESP 18; TEMP 36.4; BMI 34.7
--- NOTE | 2020-02-17 16:04 | PCM.WC.PN ---
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 Current Visit: Yes Code(s): L97.522 - Non-pressure chronic ulcer of other part of left foot with fat layer exposed (2) Charcot's joint of left foot Status: Chronic Current Visit: Yes Code(s): M14.672 - Charcot's joint, left ankle and foot (3) Type 2 diabetes mellitus with diabetic polyneuropathy Status: Chronic Current Visit: Yes Code(s): E11.42 - Type 2 diabetes mellitus with diabetic polyneuropathy Type of Wound Date of Service: 02/17/20 Chief Complaint: Left foot History of Wound: This is 74-year-old female with diabetic neuropathy history of Charcot left foot with rocker-bottom deformity, coronary artery disease and other comorbidities has a recurrent ulcer. She kept her full contact cast clean, dry, and intact. She denies fever, chill, nausea, vomiting. Progress of Wound: Improving - Physical Exam Vital Signs Temp Pulse Resp BP 97.5 F L 72 18 141/50 H 02/17/20 14:08 02/17/20 14:08 02/17/20 14:08 02/17/20 14:08 General: Alert, Oriented x3, Cooperative, No apparent distress HEENT: Atraumatic Extremities: No cyanosis, Capillary Refill Less than 3 Seconds, No Calf Tenderness, Diminished Peripheral Pulses, Edema, - - She is a rocker-bottom Charcot foot that has a medial arch prominence as well without any acute laxity, calor, or redness Skin: Ulcer/ Wound - No purulence, erythema, streaking, odor, infection. Peripheral epithelialization is progressing. Her adjacent skin is hairless and atrophic Wound Measurements and Assessment WC - Nurse 1 - General Ulcer Measurement Start: 02/10/20 13:37 Freq: Status: Active Protocol: Activity Type Activity Date Activity User E-Sign Co-Sign Detail Recorded Client Recorded Date Recorded By Document 02/17/20 14:08 MANE [id number] 02/17/20 14:14 MANE 02/17/20 14:08 Wound Center Nurse 1 [Ulcer Assessment] #4- L PLANTAR -Combined with other wound No -Current Size (cm) - Length 0.3 -Current Size (cm) - Width 0.3 -Current Size (cm) - Depth 0.3 -Total Square Cm 0.09 -Photo Taken No -Tunneling No -Undermining/Tunneling Yes -Undermining/Tunneling Starts (O' 12 clock) -Undermining/Tunneling Ends (O'clock) 12 -Maximum Distance (cm) 0.4 -Circular Undermining No -Exudate Amt Small -Exudate Type Purulent -Wound Margin Thickened -Granulation Amt Medium (34-66%) -Granulation Quality [place] -Slough/Fibrin Yes -Necrosis Amt Medium (34-66%) -Necrotic Tissue Type Adherent Slough -Structure Exposed N/A -Texture (Shannon-wound Skin Appearance) Assessed,Callus -Moisture (Shannon-wound Skin Appearance Assessed ) -Color (Shannon-wound Skin Appearance) Assessed -Temperature (Shannon-wound Skin No Abnormality Appearance) (Pt Warm) -Tenderness on Palpation (Shannon-wound No Skin Appearance) -Ulcer Cleansing Wound Cleanser -Foul Odor after Cleansing No -Anesthetic Used 4% Lidocaine Solution WC - Nurse 2 - General Ulcer CM Notes Start: 02/10/20 13:37 Freq: Status: Active Protocol: Activity Type Activity Date Activity User E-Sign Co-Sign Detail Recorded Client Recorded Date Recorded By Document 02/17/20 14:43 [id number] 02/17/20 14:47 [email or web address] 02/17/20 14:43 Wound Center Nurse 2 [Procedure/Treatment] -Time 14:43 -Correct Patient Yes -Correct Side, Site, Position Yes -Correct Procedure Yes -Procedure Performed Yes -Type of Procedure Debridement -Clinical Debridement Subcutaneous -Tissue Removed Subcutaneous -Post Debridement (cm) - Length 0.6 -Post Debridement (cm) - Width 0.6 -Post Debridement (cm) - Depth 0.2 -Total Square (Post) (cm) 0.36 -Area of Debridement (cm) - Length 0.6 -Area of Debridement (cm) - Width 0.6 -Total Square (Area) (cm) 0.36 -Tunneling No -Undermining/Tunneling No -Circular Undermining No -Wound/Ulcer Outcome Not Healed -Ulcer Cleansing Rinsed/ Irrigated with Saline -Foul Odor after Cleansing No -Bioengineered Tissue Yes -Type of Bioengineered Tissue Epifix 18mm Disc -Expiration Date 10/25/24 -Product Lot Number [id number] -Percent Used 100 -Saline Lot Number [id number] -Bleeding Controlled with Pressure -Offloading Yes -Type of Offloading Total Contact Cast (TCC) - Left ($) -Treatment Response Procedure Tolerated Well -Debridement - Subq, 1st 20sq cm No -Apply Skin Sub - 1st 25 sq cm - Feet 1 -Epifix 18mm Disc 3 Query Text:18mm = 3 [See Physician Procedure note for Specifics] Pain Scale: 0-10 Numeric [Pain] -Is Patient Pain Free? Yes - Nurse 3 - General Ulcer D/C NN Start: 02/10/20 13:37 Freq: Status: Active Protocol: Activity Type Activity Date Activity User E-Sign Co-Sign Detail Recorded Client Recorded Date Recorded By Document 02/17/20 15:00 [id number] 02/17/20 15:01 02/17/20 15:00 Wound Care Nurse 3 [Wound Dressing] #4- L PLANTAR -Other Dressing primary layer TCC applied [Post Procedure Tolerated] -Treatment Response Procedure Tolerated Well Pain Scale: 0-10 Numeric [Pain] -Is Patient Pain Free? Yes - Visit Discharge [Visit Discharge Information] -Discharge Condition Stable -Ambulatory Status Ambulatory -Transportation Private Auto -Medication Reconcilliation completed No & provided to patient/care provider -Clinical Summary of Care Provided Yes Musculoskeletal: No Tenderness to Palpation of Joints or Extremities, Muscle Wasting Neurological: - - Lack of normal epicritic sensation to light touch Psych/Mental Status: Normal Affect, Appropriate Debridement Note Post-Debridement Measurements/Treatment - Nurse 2 - General Ulcer CM Notes Start: 02/10/20 13:37 Freq: Status: Active Protocol: Activity Type Activity Date Activity User E-Sign Co-Sign Detail Recorded Client Recorded Date Recorded By Document 02/10/20 14:07 [id number] 02/10/20 14:08 Document 02/17/20 14:43 [id number] 02/17/20 14:47 02/10/20 02/17/20 14:07 14:43 Wound Center Nurse 2 #4- L PLANTAR -Time 14:43 -Correct Patient Yes Yes -Correct Side, Site, Position Yes Yes -Correct Procedure Yes Yes -Procedure Performed Yes Yes -Type of Procedure Debridement Debridement -Clinical Debridement Subcutaneous Subcutaneous -Tissue Removed Subcutaneous Subcutaneous -Post Debridement (cm) - Length 0.8 0.6 -Post Debridement (cm) - Width 1.1 0.6 -Post Debridement (cm) - Depth 0.1 0.2 -Total Square (Post) (cm) 0.88 0.36 -Area of Debridement (cm) - Length 0.8 0.6 -Area of Debridement (cm) - Width 1.1 0.6 -Total Square (Area) (cm) 0.88 0.36 -Tunneling No No -Undermining/Tunneling No No -Circular Undermining No No -Wound/Ulcer Outcome Not Healed Not Healed -Ulcer Cleansing Rinsed/ Rinsed/ Irrigated with Irrigated with Saline Saline -Foul Odor after Cleansing No No -Bioengineered Tissue Yes Yes -Type of Bioengineered Tissue Epifix 18mm Epifix 18mm Disc Disc -Expiration Date 10/25/24 10/25/24 -Product Lot Number [id number] -Percent Used 100 100 -Saline Lot Number [id number] -Bleeding Controlled with Pressure Pressure -Offloading Yes Yes -Type of Offloading Total Contact Total Contact Cast (TCC) - Cast (TCC) - Left ($) Left ($) -Treatment Response Procedure Procedure Tolerated Well Tolerated Well -Debridement - Subq, 1st 20sq cm No No -Apply Skin Sub - 1st 25 sq cm - Feet 1 1 -Epifix 18mm Disc 3 3 Query Text:18mm = 3 Pain Scale: 0-10 Numeric Is Patient Pain Free? Yes Yes - Nurse 3 - General Ulcer D/C NN Start: 02/10/20 13:37 Freq: Status: Active Protocol: Activity Type Activity Date Activity User E-Sign Co-Sign Detail Recorded Client Recorded Date Recorded By Document 02/10/20 14:21 RB [id number] 02/10/20 14:22 RB Document 02/17/20 15:00 RB [id number] 02/17/20 15:01 RB 02/10/20 02/17/20 14:21 15:00 Wound Care Nurse 3 #4- L PLANTAR -Other Dressing PRIMARY LAYER primary layer TCC TCC applied Treatment Response Procedure Procedure Tolerated Well Tolerated Well Pain Scale: 0-10 Numeric Is Patient Pain Free? Yes Yes Teaching: Wound Center Application of TCC and care -Person Taught Patient -Teaching Method Discussion -Response to teaching Verbalize understanding WC - Visit Discharge Discharge Condition Stable Stable Ambulatory Status Ambulatory Ambulatory Transportation Private Auto Medication Reconcilliation completed & No No provided to patient/care provider Clinical Summary of Care Provided Yes Yes Wound debrided: plantar foot Laterality: Left Wound Grade/Stage: grade 1 Type of Debridement: Excisional debridement Anesthesia Used: 5% Lidocaine Gel Depth: in the subcutaneous layer Percentage of wound debrided: 100 Instrument Used: #15 blade Tissue Removed: fibrous, devitalized subcutaneous, biofilm, slough Severity: Fat Layer Exposed Amount of bleeding with debridement: Mild Bleeding Controlled with: Pressure Patient tolerated procedure well Assessment/Plan Active Problems (Last Reviewed 02/09/20 @ 17:[address] 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 Midfoot Charcot deformity, left. Diabetes with neuropathy. Malnutrition suspected. Other comorbidities Plan: I reviewed and discussed her case. Excisional subcutaneous debridement was performed as noted in the clinical panel. I recommended application of advanced wound healing product, epi-fix in which she is still under her improved timeframe. Verbal consent was obtained and this was applied according standard protocol. This was further secured in place with a wound veil and Steri-Strips. She was advised to keep this clean, dry, and intact until follow-up next week. Additionally verbal consent was obtained to apply the recommended total contact cast in a well-padded in neutral manner. She also tolerated this well. She was reassured no signs of local infection or acute Charcot findings were seen. To follow-up with the wound healing center in 1 week or call sooner if she has any questions or concerns or development of local or systemic infection. I answered all of her questions.
[2020-02-24 14:13] VITALS: BP 147/68; PULSE 66; RESP 18; TEMP 36.4; BMI 34.7
[2020-02-24 15:38] VITALS: BP 141/72; PULSE 73; RESP 16
--- NOTE | 2020-02-24 21:35 | PN.PCM_ITS ---
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: Resolved Code(s): L97.522 - Non-pressure chronic ulcer of other part of left foot with fat layer exposed (2) Charcot's joint of left foot Status: Chronic Code(s): M14.672 - Charcot's joint, left ankle and foot (3) Type 2 diabetes mellitus with diabetic polyneuropathy Status: Chronic Code(s): E11.42 - Type 2 diabetes mellitus with diabetic polyneuropathy Type of Wound Date of Service: 02/24/20 Chief Complaint: Left foot History of Wound: This is 74-year-old female with diabetic neuropathy history of Charcot left foot with rocker-bottom deformity, coronary artery disease and other comorbidities has a recurrent ulcer. She kept her full contact cast clean, dry, and intact. She denies fever, chill, nausea, vomiting. Progress of Wound: Healed - Physical Exam Vital Signs Temp Pulse Resp BP 97.5 F L 73 16 141/72 H 02/24/20 14:13 02/24/20 15:38 02/24/20 15:38 02/24/20 15:38 General: Alert, Oriented x3, Cooperative, No apparent distress HEENT: Atraumatic Extremities: No cyanosis, Capillary Refill Less than 3 Seconds, No Calf Tenderness, Diminished Peripheral Pulses, Edema Skin: Ulcer/ Wound - No purulence, erythema, streaking, odor, infection. Full epithelialization is noted in the ulcer site is healed Wound Measurements and Assessment WC - Nurse 1 - General Ulcer Measurement Start: 02/10/20 13:37 Freq: Status: Discharge Protocol: Activity Type Activity Date Activity User E-Sign Co-Sign Detail Recorded Client Recorded Date Recorded By Document 02/24/20 14:13 DL [id number] 02/24/20 14:25 DL Edit Status 02/24/20 15:34 LAZ [email or web address] Active=>Discharge [id number] 02/24/20 15:34 BKG DAEMON 02/24/20 14:13 Wound Center Nurse 1 [Ulcer Assessment] #4- L PLANTAR -Current Size (cm) - Length 0.1 -Current Size (cm) - Width 0.1 -Current Size (cm) - Depth 0.1 -Total Square Cm 0.01 -Photo Taken No -Exudate Amt Small -Exudate Type Serosanguineous -Wound Margin Indistinct, Non -Visible -Granulation Amt Medium (34-66%) -Granulation [facility] -Necrosis Amt Medium (34-66%) -Necrotic Tissue Type Adherent Slough -Structure Exposed N/A -Texture (Shannon-wound Skin Appearance) Scarring -Moisture (Shannon-wound Skin Appearance Dry/Scaly ) -Color (Shannon-wound Skin Appearance) No Abnormality -Temperature (Shannon-wound Skin No Abnormality Appearance) (Pt Warm) -Tenderness on Palpation (Shannon-wound No Skin Appearance) -Ulcer Cleansing Wound Cleanser -Foul Odor after Cleansing No -Anesthetic Used 4% Lidocaine Solution - Nurse 2 - General Ulcer CM Notes Start: 02/10/20 13:37 Freq: Status: Discharge Protocol: Activity Type Activity Date Activity User E-Sign Co-Sign Detail Recorded Client Recorded Date Recorded By Document 02/24/20 15:27 [id number] 02/24/20 15:30 Edit Status 02/24/20 15:34 BKG DAEMON Active=>Discharge [facility]-BG 02/24/20 15:34 BKG DAEMON 02/24/20 15:27 Wound Center Nurse 2 [Procedure/Treatment] -Correct Patient No -Correct Side, Site, Position No -Correct Procedure No -Procedure Performed No -Post Debridement (cm) - Length 0 -Post Debridement (cm) - Width 0 -Post Debridement (cm) - Depth 0 -Total Square (Post) (cm) 0 -Area of Debridement (cm) - Length 0 -Area of Debridement (cm) - Width 0 -Total Square (Area) (cm) 0 -Wound/Ulcer Outcome Healed- Epithelialized [See Physician Procedure note for Specifics] Pain Scale: 0-10 Numeric [Pain] -Is Patient Pain Free? Yes - Nurse 3 - General Ulcer D/C NN Start: 02/10/20 13:37 Freq: Status: Discharge Protocol: Activity Type Activity Date Activity User E-Sign Co-Sign Detail Recorded Client Recorded Date Recorded By Edit Status 02/24/20 15:34 BKG DAEMON Active=>Discharge [facility]-[id number] 02/24/20 15:34 BKG DAEMON Document 02/24/20 15:38 [facility] [id number] 02/24/20 15:38 [facility] 02/24/20 15:38 Vital Signs [Pulse] -Pulse Rate (60-100) 73 -Pulse Location Monitor [Respirations] -Respiratory Rate (12-18) 16 -Respiratory rate source Observation -Oxygen Delivery Method Room Air [Blood Pressure] -Blood Pressure (90/60-120/80) 141/72 H -Blood Pressure Mean (mm Hg) 95 -Source Monitor -Position Sitting -Blood Pressure Location Left Arm Pain Scale: 0-10 Numeric [Pain] -Is Patient Pain Free? Yes - Visit Discharge [Visit Discharge Information] -Discharge Condition Stable -Ambulatory Status Ambulatory -Transportation Private Auto -Accompanied by Musculoskeletal: No Tenderness to Palpation of Joints or Extremities, - - Stable Charcot deformity unchanged to foot Neurological: - - Lack of normal epicritic sensation light touch is consistent with neuropathy status Psych/Mental Status: Normal Affect, Appropriate Debridement Note Post-Debridement Measurements/Treatment - Nurse 2 - General Ulcer CM Notes Start: 02/10/20 13:37 Freq: Status: Discharge Protocol: Activity Type Activity Date Activity User E-Sign Co-Sign Detail Recorded Client Recorded Date Recorded By Document 02/10/20 14:07 [id number] 02/10/20 14:08 Document 02/17/20 14:43 [id number] 02/17/20 14:47 Document 02/24/20 15:27 [id number] 02/24/20 15:30 02/10/20 02/17/20 02/24/20 14:07 14:43 15:27 Wound Center Nurse 2 #4- L PLANTAR -Time 14:43 -Correct Patient Yes Yes No -Correct Side, Site, Position Yes Yes No -Correct Procedure Yes Yes No -Procedure Performed Yes Yes No -Type of Procedure Debridement Debridement -Clinical Debridement Subcutaneous Subcutaneous -Tissue Removed Subcutaneous Subcutaneous -Post Debridement (cm) - Length 0.8 0.6 0 -Post Debridement (cm) - Width 1.1 0.6 0 -Post Debridement (cm) - Depth 0.1 0.2 0 -Total Square (Post) (cm) 0.88 0.36 0 -Area of Debridement (cm) - Length 0.8 0.6 0 -Area of Debridement (cm) - Width 1.1 0.6 0 -Total Square (Area) (cm) 0.88 0.36 0 -Tunneling No No -Undermining/Tunneling No No -Circular Undermining No No -Wound/Ulcer Outcome Not Healed Not Healed Healed- Epithelialized -Ulcer Cleansing Rinsed/ Rinsed/ Irrigated with Irrigated with Saline Saline -Foul Odor after Cleansing No No -Bioengineered Tissue Yes Yes -Type of Bioengineered Tissue Epifix 18mm Epifix 18mm Disc Disc -Expiration Date 10/25/24 10/25/24 -Product Lot Number [id number] -Percent Used 100 100 -Saline Lot Number [id number] -Bleeding Controlled with Pressure Pressure -Offloading Yes Yes -Type of Offloading Total Contact Total Contact Cast (TCC) - Cast (TCC) - Left ($) Left ($) -Treatment Response Procedure Procedure Tolerated Well Tolerated Well -Debridement - Subq, 1st 20sq cm No No -Apply Skin Sub - 1st 25 sq cm - Feet 1 1 -Epifix 18mm Disc 3 3 Pain Scale: 0-10 Numeric Is Patient Pain Free? Yes Yes Yes - Nurse 3 - General Ulcer D/C NN Start: 02/10/20 13:37 Freq: Status: Discharge Protocol: Activity Type Activity Date Activity User E-Sign Co-Sign Detail Recorded Client Recorded Date Recorded By Document 02/10/20 14:21 RB [id number] 02/10/20 14:22 RB Document 02/17/20 15:00 RB [id number] 02/17/20 15:01 RB Document 02/24/20 15:38 [facility] [id number] 02/24/20 15:38 [facility] 02/10/20 02/17/20 02/24/20 14:21 15:00 15:38 Wound Care Nurse 3 #4- L PLANTAR -Other Dressing PRIMARY LAYER primary layer TCC TCC applied Treatment Response Procedure Procedure Tolerated Well Tolerated Well Pain Scale: 0-10 Numeric Is Patient Pain Free? Yes Yes Yes Vital Signs Pulse Rate (60-100) 73 Pulse Location Monitor Respiratory Rate (12-18) 16 Respiratory rate source Observation Oxygen Delivery Method Room Air Blood Pressure (90/60-120/80) 141/72 H Blood Pressure Mean (mm Hg) 95 Source Monitor Position Sitting Blood Pressure Location Left Arm Teaching: Wound Center Application of TCC and care -Person Taught Patient -Teaching Method Discussion -Response to teaching Verbalize understanding WC - Visit Discharge Discharge Condition Stable Stable Stable Ambulatory Status Ambulatory Ambulatory Ambulatory Transportation Private Auto Private Auto Accompanied by Medication Reconcilliation completed & No No provided to patient/care provider Clinical Summary of Care Provided Yes Yes No debridement was completed today - healed today Assessment/Plan Assessment: left foot plantar ulcer, healed today. Midfoot Charcot deformity, left -stable and nonacute. Diabetes with neuropathy. Malnutrition suspected. Other comorbidities Plan: I reviewed and discussed her case. Excisional subcutaneous debridement was performed as noted in the clinical panel. Her ulcer site has healed. She can discontinue dressing care and total contact cast care. She understands her skin is friable and she is at risk for reopening this. She was advised to slowly progress into her [place] boot. The shoulder wound that she has at home has an aggressive offloading pocket made at her prior ulcer site and I recommend she wears this device. She will be discharged from the wound healing center at this time. She will follow-up with the foot and ankle center within the next month for healed ulcer assessment. To call the office sooner if this reopens or if she has any questions or concerns. I answered all of her questions.
== END 2020-02-24 15:34 | disposition home or self-care (01) ==
LOC: WC 14:15
PROVIDERS: PCP Family Medicine; Visit Provider Podiatrist
DX: E11.621 Type 2 diabetes mellitus with foot ulcer (principal); L97.522 Non-pressure chronic ulcer of other part of left foot with fat layer exposed; M14.672 Charcot's joint, left ankle and foot; E11.42 Type 2 diabetes mellitus with diabetic polyneuropathy; I25.10 Atherosclerotic heart disease of native coronary artery without angina pectoris; Z79.02 Long term (current) use of antithrombotics/antiplatelets; Z79.82 Long term (current) use of aspirin; Z79.4 Long term (current) use of insulin; Z79.899 Other long term (current) drug therapy
CPT/HCPCS: 15275; 29445; 99212; Q4186; G0463

== ENCOUNTER 2020-03-07 06:24 | Day surgery (SDC) | payer MEDICARE, OTHER, SELFPAY ==
[2020-02-25 15:45] VITALS: BMI 34.7
--- NOTE | 2020-03-06 23:53 | PCM.HP.BLA ---
History and Physical Date of Admission: 03/07/20 HISTORY OF PRESENT ILLNESS 74 year old woman presents with a nonhealing ulcer supraumbilical area in previous scar that first developed a year ago. She is currently placing Silver dressing changes daily with improvement. The ulcer is in the lower edge of a previous upper midline scar from a gastric bypass procedure and subsequent hernia repair with mesh about 20 years ago. She denies fever. She denies trauma. A wound culture was done 02/03/20 which showed Staphylococcus aureus. She was placed on Doxycycline. The CT Abdomen and Pelvis was done on 02/11/20. It showed she is status post an anterior wall hernia repair with no recurrent hernia. There are 2 minimal fatty herniations of the upper abdominal wall above the mesh not included in the hernia repair. There is a minimal shallow opening in the skin surface along the lower edge of the midline abdominal incision which is not appear to be related to any subcutaneous fluid collection. There are bands of scarring in the subcutaneous plane in an area of skin thickening and mild subcutaneous stranding to the right of the midline incision. No other acute abdominal or pelvic findings. Status post cholecystectomy. Pancreatic atrophy. Shallow cortical scars of the kidneys. Hiatal hernia. Stool-filled colon. PAST MEDICAL HISTORY Ulcer of abdomen wall with fat layer exposed (Chronic) History of CVA (cerebrovascular accident) (Chronic) Atherosclerotic heart disease of [place] coronary artery without angina pectoris (Chronic) Diabetes mellitus (Chronic) History of stroke (Chronic) Carotid artery disease (Chronic) Malnutrition (Chronic) Diabetes mellitus with polyneuropathy (Chronic) Peripheral vascular disease (Chronic) Hypertension (Chronic) Chronic pain (Chronic) Hyperlipidemia (Chronic) Coronary artery disease (Chronic) Hypothyroidism (Chronic) Iron deficiency anemia (Chronic) GERD (gastroesophageal reflux disease) (Chronic) Allergies (Acute) Back problem (Acute) Carpal tunnel syndrome (Acute) Gout (Acute) Heart disease (Acute) High cholesterol (Acute) History of blood clots (Acute) History of blood transfusion (Acute) IBS (irritable bowel syndrome) (Acute) Neuropathy (Acute) Osteoporosis (Acute) Vascular disease (Acute) Vitamin deficiency (Acute) PAST SURGICAL HISTORY gastric bypass (Chronic) Hx of ventral hernia repair (Chronic) Stented coronary artery (Chronic 12/03/18) History of left heart catheterization (Chronic) History of coronary artery bypass graft (Chronic) ALLERGIES atorvastatin calcium [From Lipitor] Allergy (Verified 02/26/20 14:55) Unknown bupropion HCl [From Wellbutrin] Allergy (Verified 02/26/20 14:55) Unknown mannitol [From Reclast] Allergy (Verified 02/26/20 14:55) joint pain, unable to breathe, unable to walk propoxyphene napsylate [From Darvocet-N 100] Allergy (Verified 02/26/20 14:55) Unknown Quinolones Allergy (Verified 02/26/20 14:55) Unknown Tetanus Vaccines and Toxoid [Tetanus Vaccines & Toxoid] Allergy (Verified 02/26/20 14:55) Chest tightness tizanidine Allergy (Verified 02/26/20 14:55) Unknown zoledronic acid [From Reclast] Allergy (Verified 02/26/20 14:55) joint pain,unable to breathe, unaable to walk pravastatin Adverse Reaction (Severe, Verified 02/26/20 14:55) Myalgias gemfibrozil Adverse Reaction (Intermediate, Verified 02/26/20 14:55) Unknown NSAIDS (Non-Steroidal Anti-Inflamma Adverse Reaction (Verified 02/26/20 14:55) Other MEDICATIONS Aspirin [Aspirin, Baby] 81 mg PO QHS 03/10/17 [History Confirmed 02/26/20] Levothyroxine Sodium [Levoxyl] 75 mcg PO QHS 03/10/17 [History Confirmed 02/26/20] Pravastatin Sodium 40 mg PO DAILY 03/10/17 [History Confirmed 02/26/20] amlodipine 5 mg tablet 5 mg PO DAILY tab 05/05/18 [History Confirmed 02/26/20] insulin aspart U-100 100 unit/mL (3 mL) subcutaneous pen 12 unit SC TIDAC ml 05/08/18 [History Confirmed 02/26/20] Morphine Sulfate 3 ml PO Q6H PRN PRN 06/07/18 [History Confirmed 02/26/20] cyclobenzaprine 10 mg tablet 10 mg PO HS PRN 11/24/18 [History Confirmed 02/26/20] glucagon (human recombinant) 1 mg solution for injection 1 mg IM ONCE PRN 11/24/18 [History Confirmed 02/26/20] levomefolate Ca 3 mg-B6 35 mg-meB12 2 mg-algal oil 90.314 mg capsule 1 cap PO BID cap 11/24/18 [History Confirmed 02/26/20] linaclotide 72 mcg capsule 72 mcg PO DAILY PRN 11/24/18 [History Confirmed 02/26/20] Clobetasol Propionate/Emoll [Clobetasol Emollient 0.05% Crm] 1 applic TP BID PRN 09/21/19 [History Confirmed 02/26/20] Ergocalciferol [Vitamin D] 50,000 unit PO QWEEK 09/21/19 [History Confirmed 02/26/20] Esomeprazole Magnesium 20 mg PO DAILY 09/21/19 [History Confirmed 02/26/20] lisinopril 10 mg tablet 10 mg PO DAILY #90 tab 11/03/19 [Rx Confirmed 02/26/20] clopidogrel 75 mg tablet 75 mg PO DAILY #90 tab 11/23/19 [Rx Confirmed 02/26/20] duloxetine 30 mg capsule,delayed release 30 mg PO QHS cap 01/11/20 [History Confirmed 02/26/20] Diclofenac/Gabapentin/lidocaine/prilocaine 1 dose TOPICAL TID 01/12/20 [History Confirmed 02/26/20] azelastine 137 mcg (0.1 %) nasal spray aerosol 1 spray INTRANASAL BID 01/12/20 [History Confirmed 02/26/20] calcium citrate 200 mg (950 mg) tablet 200 mg PO BID 01/12/20 [History Confirmed 02/26/20] cbd 1 dose PO TID PRN 01/12/20 [History Confirmed 02/26/20] fexofenadine 180 mg tablet 180 mg PO BID tab 01/12/20 [History Confirmed 02/26/20] insulin detemir U-100 100 unit/mL (3 mL) subcutaneous pen 30 unit SC BID ml 01/12/20 [History Confirmed 02/26/20] ketoconazole 2 % topical cream 1 applic TOPICAL BID PRN 01/12/20 [History Confirmed 02/26/20] ikyceo-piwotsde-ninrdwd 24,000-76,000-120,000 unit capsule,delayed rel 1 cap PO BID 01/12/20 [History Confirmed 02/26/20] quetiapine 100 mg tablet 100 mg PO QHS 01/12/20 [History Confirmed 02/26/20] saliva stimulant comb. no.2 1 ea MUCOUS MEMBRANE DAILY 01/12/20 [History Confirmed 02/26/20] Carvedilol 25 mg PO BID 02/26/20 [History Confirmed 02/26/20] Doxycycline Hyclate 100 mg PO BID 02/26/20 [History Confirmed 02/26/20] Hydroxyzine HCl 25 mg PO Q8H PRN PRN 02/26/20 [History Confirmed 02/26/20] Hyoscyamine Sulfate [Hyoscyamine Sulfate ER] 0.375 mg PO BID 02/26/20 [History Confirmed 02/26/20] Isosorbide Mononitrate [Isosorbide Mononitrate ER] 60 mg PO .COMPLEX 02/26/20 [History Confirmed 02/26/20] Levomefolate/B6/B12/Algal Oil [Metanx Capsule] 1 ea PO BID 02/26/20 [History Confirmed 02/26/20] Nitroglycerin [Nitrolingual [place] ([facility])] 0.4 mg SL PRN PRN 02/26/20 [History Confirmed 02/26/20] Promethazine HCl 12.5 mg PO PRN PRN 02/26/20 [History Confirmed 02/26/20] FAMILY HISTORY Mother , age 75 Cancer CVA (cerebral vascular accident) CAD (coronary artery disease) Father CAD (coronary artery disease) History of coronary artery bypass graft Sister CAD (coronary artery disease) Multiple sclerosis Other Anxiety Bleeding disorder Depression Diabetes Heart disease High cholesterol Hypertension SOCIAL HISTORY Smoking Status: Never smoker alcohol intake: never substance use type: does not use caffeine: Yes Type: coffee what type of physical activity do you participate in: none seatbelt use: sometimes do you feel safe at home: Yes additional social history: DOES NOT TAKE ASPIRIN DOES TAKE IBUPROFEN NEEDED REVIEW OF SYSTEMS General - Denies fever and weight loss. Has fatigue. Eyes - Denies cataracts and glaucoma. ENT - Denies nasal congestion and sore throat. Endocrine - Denies excessive thirst and urination. Has heat and cold intolerance. Skin - Denies suspicious lesions and skin cancer. Musculoskeletal - Has joint pain, joint stiffness, weakness of muscles and joints, back pain, and arthritis. Neuro - Denies headaches. Has lightheadedness. Cardiovascular - Denies chest pain, fatigue, and shortness of breath with exertion. Psych - Denies anxiety. Has depression. Respiratory - Denies chronic cough and shortness of breath. Has sleep apnea. Gastrointestinal - Denies nausea, vomiting. Has diarrhea, and constipation. Hematologic - Denies abnormal bruising and bleeding. Has anemia. Genitourinary - Denies hematuria. Has urinary frequency and incontinence.. PHYSICAL EXAMINATION General - Alert and Oriented. HEENT - PERRL. EOMI. Throat is clear. Neck - Supple and nontender. No cervical adenopathy. Lungs - Clear to auscultation. Heart - Regular rate and rhythm. Abdomen - Soft and nondistended. Has upper midline scar. At the inferior aspect of the scar is a nonhealing ulcer that measures smaller at 1 x 0.6 x 0.2 cm. Edges are less curled. Good healing granulation tissue present. Has irregular borders. Ulcer is nontender. Extremities - FROM. No axillary adenopathy. Radial pulses are palpable. No inguinal adenopathy. Neuro - CN II-XII grossly intact. Psych - Normal mood and affect. ASSESSMENT 1. Nonhealing ulcer supraumbilical area in previous scar, slowly improving. 2. History of gastric bypass surgery. 3. History of ventral hernia repair with mesh. 4. Diabetes mellitus. PLAN DEBRIDEMENT NOTE After using cetacaine spray anesthesia, I used a #3 curette and sharply debrided the ulcer down to the subcutaneous tissue as an excisional debridement. Good bleeding was seen in the subcutaneous tissue after the excisional debridement. In addition to the subcutaneous tissue, I also debrided some senescent cells, some increased bioburden, and some devitalized tissue. Patient tolerated the procedure well. Hemostasis was obtained with gentle pressure. The ulcer was redressed with a Silver dressing. The dimensions of the wound increased after excisional debridement to 1.1 x 0.7 x 0.2 cm. A wound culture from 02/03/20 showed Staphylococcus aureus. She was placed on Doxycycline. Continue Silver dressing changes daily. Recommend excision of the ulcer and send it to Pathology for analysis to rule out carcinoma. If carcinoma is present, then further excision will be done with skin flap or skin graft reconstruction. With her history of ventral hernia with mesh, a CT scan was obtained on 02/11/20. It showed the presence of the hernia repair and no tracking was seen from the skin down to the mesh. No subcutaneous fluid was noted. It appears the ulcer is not involved with the underlying mesh. Will proceed with surgical excision. It has been scheduled for 03/07/20. It will be done on an outpatient basis under local anesthesia and IV sedation. With her history of diabetes mellitus, will check a HgbA1c. For elective procedures, the HgbA1c should be less than 8. She had it done on 02/17/20 and it was 7.8. Patient was informed of the risks and complications of the procedure including alternatives to surgery. These were discussed with the patient personally. Patient voices understanding and wishes to proceed. Some of the risks and complications were included in a form from the [place] [employer]. We discussed the current risks associated with COVID-19. While it is understood that there is a community spread of COVID-19, the risk of roderick COVID-19 while at [facility] ([facility]) is very low; however, the risk cannot be completely mitigated because of the community spread of the disease. We discussed in detail the risk of exposure to and/or potential harm posed by the COVID-19 virus with having a surgery/procedure at this time versus the risk of delaying the surgery/procedure. It is not possible to know either the risk of delaying the surgery or procedure or chance of getting an infection with perfect accuracy, but a joint decision was made to proceed at this time with the scheduled surgery/procedure as indicated on the consent form. Patient was notified that we will need to comply with any screening or testing [facility] wishes to perform or that surgery may be delayed for any positive results. Discussed with the patient that I was tested for COVID-19 on 11/26/19 which was negative and on 12/10/19 which was negative and on 12/24/19 which was negative and on 01/07/20 which was negative and on 01/21/20 which was negative and on 02/11/20 which was negative and on 03/03/20 which was negative. My testing regimen at this time is to be COVID-19 tested every 2 weeks or so. Procedure Criteria Procedure Type: Elective COVID Risk Discussion: The surgeon/proceduralist and patient have discussed in detail the risk of exposure to and/or potential harm posed by the COVID-19 virus with having a surgery/procedure at this time versus the risk of delaying the surgery/procedure. It is not possible to know either the risk of delaying the surgery or procedure or chance of getting an infection with perfect accuracy, but a joint decision was made between the patient and the surgeon/proceduralist to proceed at this time with the scheduled surgery/procedure as indicated on the consent form.
[2020-03-07] VITALS (10 sets, daily range): BP systolic 103–138; BP diastolic 38–59; PULSE 60–68; RESP 14–16; TEMP 36.3–36.5; O2SAT 92–96; BMI 33.7
--- NOTE | 2020-03-07 | UL_PTH ---
PATIENT: SEBASTIÁN REYES LOC: [facility] – [place] U#:[id number] AGE/SX: 74/F ROOM: RE03/07/[address]: Dr. Judson Massey MD : 1945 BED: DIS: 03/07/2020 SPEC #: [id number] RECD: 03/07/20 08:25 STATUS: FER REMonica #: [id number] HANSEL: 03/07/20 00:[address]: Judson Massey DEPT: SURGICAL PATHOLOGY RECD BY: Lidya Morton ENTERED: 03/07/20 09:21 SP TYPE: ULCER OTHR DR: Dr. Con Johnson MD Tissues: A - Umbilical region B - Abdomen, NOS Procedures: Frozen Section (charge) Surgery Specimen Level IV HEADER OPERATION: Surgical preparation abdominal wall with excisional debridement PRE-OP DIAGNOSIS: Nonhealing ulcer supraumbilical area in previous scar TISSUE SUBMITTED: A - Nonhealing ulcer supraumbilical area in previous scar, FS, B - Debrided abdominal tissue, suture at 12 o'clock FROZEN SECTION DIAGNOSIS A. Nonhealing ulcer supraumbilical area in previous scar, biopsy: Negative for carcinoma. CANDIE:debbi 03/07/20 MICROSCOPIC DIAGNOSIS A. Nonhealing ulcer supraumbilical area in previous scar, biopsy: Dermal fibrosis consistent with scar. Negative for carcinoma. B. Debrided abdominal tissue: A piece of skin with underlying tissue with extensive ulceration, dermal fibrosis consistent with scar. Negative for carcinoma. CANDIE:debbi 03/09/20 MICROSCOPIC DESCRIPTION Slides are reviewed. GROSS DESCRIPTION A - Received fresh for frozen section diagnosis labeled with the patient's name is a specimen designated nonhealing ulcer supraumbilical area and previous scar. The specimen consists of a piece of bolden-white skin ellipse measuring 2.5 x 1.5 x 0.5 cm. The specimen is inked as follows: 12 o'clock - black, 6 o'clock - blue, 9 o'clock tip - green and 3 o'clock tip - red. The specimen is serially sectioned and submitted entirely for frozen section diagnosis in one cassette. / SJ:debbi 03/07/20 B - Received in fixative is one container labeled with the patient's name and designated debrided abdominal tissue, suture at 12 o'clock. The specimen consists of an ellipse of light bolden skin with attached fibrofatty tissue measuring 11.5 x 2 cm and a depth of excision measuring 1 cm. The cutaneous displays a defect/ulcer measuring 4 x 1.5 x 0.5 cm. Serial sections do not reveal mass lesions. Sawmill Worker sections are submitted in five cassettes as follows: 1 - tip with suture, 2 - opposite tip, 3-5 - ulcer. / AM:debbi 03/08/20 TC:5 CPT: 77790 x2, 48786
[2020-03-07] MEDS: Lactated Ringers 1,000 ML 100 ML IV (07:20)
[2020-03-07 07:50] LABS: Bedside Glucose 178 mg/dL (70-110)
--- NOTE | 2020-03-07 09:12 | PCM.OPRPT ---
Report of Operation Date of Procedure: 03/07/20 Pre-Operative Diagnosis: 1. Nonhealing ulcer supraumbilical area in previous scar. 2. History of gastric bypass surgery. 3. History of ventral hernia repair with mesh. 4. Diabetes mellitus. Post-Operative Diagnosis: Same. Surgery/Procedure Performed:: Surgical preparation supraumbilical area in previous scar with excision nonhealing ulcer and 16 cm complex secondary wound closure. Description of Surgical Findings:: 74 year old woman presents with a nonhealing ulcer supraumbilical area in previous scar that first developed a year ago. She is currently placing Silver dressing changes daily with improvement. The ulcer is in the lower edge of a previous upper midline scar from a gastric bypass procedure and subsequent hernia repair with mesh about 20 years ago. She denies fever. She denies trauma. A wound culture was done 02/03/20 which showed Staphylococcus aureus. She was placed on Doxycycline. The CT Abdomen and Pelvis was done on 02/11/20. It showed she is status post an anterior wall hernia repair with no recurrent hernia. There are 2 minimal fatty herniations of the upper abdominal wall above the mesh not included in the hernia repair. There is a minimal shallow opening in the skin surface along the lower edge of the midline abdominal incision which is not appear to be related to any subcutaneous fluid collection. There are bands of scarring in the subcutaneous plane in an area of skin thickening and mild subcutaneous stranding to the right of the midline incision. No other acute abdominal or pelvic findings. Status post cholecystectomy. Pancreatic atrophy. Shallow cortical scars of the kidneys. Hiatal hernia. Stool-filled colon. Patient was informed of the risks and complications of the procedure including alternatives to surgery. These were discussed with the patient personally. Patient voices understanding and wishes to proceed. Some of the risks and complications were included in a form from the [employer]. Frozen section nonhealing ulcer supraumbilical area in previous scar - negative for carcinoma. I used AmnioFill Placental Connective Tissue Powder, 500 mg. Catalog Number - [id number]. Lot Number - [id number]. Expiration - August 25, 2024. broomcorn sorter: Rene Davis. Type of Anesthesia:: General Specimen's removed: 1. Nonhealing ulcer supraumbilical area in previous scar to Pathology as a frozen section. 2. Nonhealing ulcer supraumbilical area in previous scar additional tissue to Pathology and Microbiology. Drains: Alek. Estimated Blood Loss (mL): 5 ml. Description of Procedure: Patient was taken to OR in supine position and was placed under general anesthesia. The abdominal wall was prepped and draped in the usual fashion. SCD's were placed for DVT prophylaxis. Perioperative antibiotics were given intravenously. For the procedure, I wore an N95 mask and wore proper eyewear protection. Using xylocaine with epinephrine, the nonhealing ulcer supraumbilical area in previous scar was infiltrated. After waiting 5 minutes for the anesthetic to take effect, I excised the nonhealing ulcer as a full thickness excision. A suture was marked at 12 oclock position for pathology orientation. The ulcer was sent to Pathology as a frozen section for analysis to rule out carcinoma. Frozen section showed no evidence of carcinoma. Tissue was also sent to Microbiology for culture. A positive culture will necessitate antibiotic therapy. To aid in wound closure, I excised a longitudinal ellipse of skin around the ulcer down into the subcutaneous tissue. A suture was marked at 12 oclock position for pathology orientation. The additional tissue was sent to Pathology for analysis to rule out carcinoma. Hemostasis was obtained with electrocautery. The wound was irrigated with saline. I elevated the skin edges at the level of the Alex's fascia to aid in wound closure with minimal tension. A size 15 Alek drain was placed through a stab incision inferiorly and secured to the skin with 3-0 Nylon suture. To aid in the healing process, I placed AmnioFill placental connective tissue powder into the wound. I used 500 mg. The wound was closed in a multiple layered fashion wtih 2-0 Vicryl figure of eight interrupted sutures for the underlying Alex's fascia. The deep dermis and subcutaneous tissue was approximated with 3-0 Monocryl interrupted sutures. The skin was approximated with 3-0 V lock unidirectional barbed running subcuticular suture and followed with Histoacryl skin tissue adhesive. The length of the complex secondary wound closure was 16 cm. Kerlix gauze dressing was applied followed by a compression shree wrap. Patient tolerated the procedure well and was sent to PACU in satisfactory condition. Patient will be sent home on antibiotics and pain medication. She will continue her compression shree wrap. Patient will followup in a week for a wound check and for discussion of the pathology report and for discussion of the microbiology report. A positive culture will necessitate antibiotic therapy. Grafts/Implants Used: AmnioFill Placental Connective Tissue Powder - Complications None. - Admit VTE Documentation VTE Present on Admission: No VTE Mechan Device Prophylaxis: SCD's VTE Pharm Prophylaxis ordered?: No Surgery Charges CPT - 89826 ICD-10 - L98.492, Z98.84, Z98.890, E11.9 08154 L98.492, Z98.84, Z98.890, E11.9
--- NOTE | 2020-03-07 09:28 | PCM.DC ---
You will use the following diet at home:: Calorie/Carbohydrate Controlled (specify 1200, 1400, etc) Discharge Activity: May not drive while taking narcotic pain medications., May Not Shower - until the drain is removed., - - no heavy lifting. May shower in (days): 10 - when the drain is removed. May resume sexual activity in: 10-14 days Weight Bearing Status: Weight bearing as tolerated Lifting Restrictions: 20 lbs. Call your doctor if your incision/area has: Continuous Slow Oozing, Sudden Increased Bleeding, Increased Pain/ Swelling, Increased Redness, Foul Smelling Discharge, Swelling at the incision site Call your doctor if you observe: Fever of 101 or Higher, Coldness, Increased Pain, Shortness of breath, Chest pain, Calf discomfort, Uncontrolled pain Suture Line Care: - - dry dressing daily after operative dressing removed followed by shree wrap. Change Dressing in (Days):: 2 - after operative dressing removed, apply dry dressing daily followed by shree wrap Cleanse incision/area with: - - may get incision wet in the shower when the drain is removed. Drain: Suction - chiara drain to bulb suction. empty and record output daily. Allergies/Adverse Reactions: Allergies doxycycline Allergy (Severe, Verified 03/07/20 06:58) all over body hives and itching atorvastatin calcium [From Lipitor] Allergy (Verified 03/07/20 06:58) Unknown bupropion HCl [From Wellbutrin] Allergy (Verified 03/07/20 06:58) Unknown mannitol [From Reclast] Allergy (Verified 03/07/20 06:58) joint pain, unable to breathe, unable to walk propoxyphene napsylate [From Darvocet-N 100] Allergy (Verified 03/07/20 06:58) Unknown Quinolones Allergy (Verified 03/07/20 06:58) Unknown Tetanus Vaccines and Toxoid [Tetanus Vaccines & Toxoid] Allergy (Verified 03/07/20 06:58) Chest tightness tizanidine Allergy (Verified 03/07/20 06:58) Unknown zoledronic acid [From Reclast] Allergy (Verified 03/07/20 06:58) joint pain,unable to breathe, unaable to walk JOINT PAIN,UNABLE TO BREATHE,UNABLE TO WALK pravastatin Adverse Reaction (Severe, Verified 10/12/20 06:58) Myalgias gemfibrozil Adverse Reaction (Intermediate, Verified 03/07/20 06:58) Unknown NSAIDS (Non-Steroidal Anti-Inflamma Adverse Reaction (Verified 03/07/20 06:58) Other Medications to take at Discharge Levothyroxine Sodium [Levoxyl] 75 mcg PO QHS 03/10/17 Pravastatin Sodium 40 mg PO DAILY 03/10/17 amlodipine 5 mg tablet 5 mg PO DAILY tab 05/05/18 insulin aspart U-100 100 unit/mL (3 mL) subcutaneous pen 12 unit SC TIDAC ml 05/08/18 Morphine Sulfate 3 ml PO Q6H PRN PRN 06/07/18 cyclobenzaprine 10 mg tablet 10 mg PO HS PRN 11/24/18 glucagon (human recombinant) 1 mg solution for injection 1 mg IM ONCE PRN 11/24/18 levomefolate Ca 3 mg-B6 35 mg-meB12 2 mg-algal oil 90.314 mg capsule 1 cap PO BID cap 11/24/18 linaclotide 72 mcg capsule 72 mcg PO DAILY PRN 11/24/18 Clobetasol Propionate/Emoll [Clobetasol Emollient 0.05% Crm] 1 applic TP BID PRN 09/21/19 Ergocalciferol [Vitamin D] 50,000 unit PO QWEEK 09/21/19 Esomeprazole Magnesium 20 mg PO DAILY 09/21/19 lisinopril 10 mg tablet 10 mg PO DAILY #90 tab 11/03/19 clopidogrel 75 mg tablet 75 mg PO DAILY #90 tab 11/23/19 duloxetine 30 mg capsule,delayed release 30 mg PO QHS cap 01/11/20 Diclofenac/Gabapentin/lidocaine/prilocaine 1 dose TOPICAL TID 01/12/20 azelastine 137 mcg (0.1 %) nasal spray aerosol 1 spray INTRANASAL BID 01/12/20 calcium citrate 200 mg (950 mg) tablet 200 mg PO BID 01/12/20 cbd 1 dose PO TID PRN 01/12/20 fexofenadine 180 mg tablet 180 mg PO BID tab 01/12/20 insulin detemir U-100 100 unit/mL (3 mL) subcutaneous pen 30 unit SC BID ml 01/12/20 ketoconazole 2 % topical cream 1 applic TOPICAL BID PRN 01/12/20 doyhii-ypyzbydn-idqnokw 24,000-76,000-120,000 unit capsule,delayed rel 1 cap PO BID 01/12/20 quetiapine 100 mg tablet 100 mg PO QHS 01/12/20 saliva stimulant comb. no.2 1 ea MUCOUS MEMBRANE DAILY 01/12/20 Carvedilol 25 mg PO BID 02/26/20 Hydroxyzine HCl 25 mg PO Q8H PRN PRN 02/26/20 Hyoscyamine Sulfate [Hyoscyamine Sulfate ER] 0.375 mg PO BID 02/26/20 Isosorbide Mononitrate [Isosorbide Mononitrate ER] 60 mg PO .COMPLEX 02/26/20 Levomefolate/B6/B12/Algal Oil [Metanx Capsule] 1 ea PO BID 02/26/20 Nitroglycerin [Nitrolingual [place] ([facility])] 0.4 mg SL PRN PRN 02/26/20 Promethazine HCl 12.5 mg PO PRN PRN 02/26/20 Clindamycin HCl [Cleocin] 300 mg PO TID #30 cap 03/07/20 Lactobacillus Acidophilus/Fos [Acidophilus Probiotic Tablet] 1 ea PO BID #30 tab 03/07/20 Oxycodone HCl/Acetaminophen [Percocet 5/325] 1 tab PO Q6H PRN PRN 5 Days #20 tab 03/07/20 The following prescriptions were given: Lactobacillus Acidophilus/Fos [Acidophilus Probiotic Tablet] 1 ea PO BID #30 tab Transmission Status: Sent to [facility]/pharmacy #[id number] Clindamycin HCl [Cleocin] 300 mg PO TID #30 cap Transmission Status: Pending to [facility]/pharmacy #[id number] Oxycodone HCl/Acetaminophen [Percocet 5/325] 1 tab PO Q6H PRN PRN 5 Days #20 tab PRN Reason: Pain Score 6-10 Transmission Status: Received by [facility]pharmacy #[id number] Primary Care Physician: Con Johnson MD [Primary Care Provider] - Test Results: Test results from this visit will be discussed in further detail at your follow-up appointment, if applicable. Please Follow Up With: Judson Massey MD When: one week. call [phone] for appt. Proposed Discharge Date: 03/07/20
[2020-03-07 11:45] LABS: Bedside Glucose 278 mg/dL (70-110)
== END 2020-03-07 12:31 | disposition home or self-care (01) ==
LOC: SDC 06:25 → AC 06:25
PROVIDERS: Anesthesiology; PCP Family Medicine; Referring Provider Surgery; Visit Provider Surgery
PROC: (CPT 13160; principal; 2020-03-07 07:50)
DX: L98.492 Non-pressure chronic ulcer of skin of other sites with fat layer exposed (principal); Z11.59 Encounter for screening for other viral diseases; I25.10 Atherosclerotic heart disease of native coronary artery without angina pectoris; E11.42 Type 2 diabetes mellitus with diabetic polyneuropathy; E11.51 Type 2 diabetes mellitus with diabetic peripheral angiopathy without gangrene; D50.9 Iron deficiency anemia, unspecified; I10 Essential (primary) hypertension; E78.5 Hyperlipidemia, unspecified; E03.9 Hypothyroidism, unspecified; G89.29 Other chronic pain; K58.9 Irritable bowel syndrome, unspecified; M81.0 Age-related osteoporosis without current pathological fracture; K21.9 Gastro-esophageal reflux disease without esophagitis; Z79.4 Long term (current) use of insulin; Z79.02 Long term (current) use of antithrombotics/antiplatelets; Z79.82 Long term (current) use of aspirin; Z79.899 Other long term (current) drug therapy; Z86.73 Personal history of transient ischemic attack (TIA), and cerebral infarction without residual deficits; Z86.718 Personal history of other venous thrombosis and embolism; Z98.84 Bariatric surgery status; Z95.5 Presence of coronary angioplasty implant and graft; Z95.1 Presence of aortocoronary bypass graft
CPT/HCPCS: 00400; 13160; 15002; 82962; 87070; 87075; 87102; 87176; 87205; 87206; 87635; 88304; 88305; 88331; C9803; J7120; J2405; U0003

== ENCOUNTER → 2020-03-09 | Outpatient (CLI) | payer MEDICARE, OTHER, SELFPAY ==
[2020-03-07 07:12] VITALS: BMI 33.7
[2020-03-09 20:17] LABS: M R Staph aureus DNA By PCR Negative (Negative); Probe Check PASS; Specimen Processing Control PASS; Staph aureus DNA By PCR NEGATIVE (Negative)
== END | disposition home or self-care (01) ==
PROVIDERS: PCP Family Medicine; Referring Provider Podiatrist Foot & Ankle Surgery; Visit Provider Podiatrist Foot & Ankle Surgery
DX: M14.672 Charcot's joint, left ankle and foot (principal); L97.522 Non-pressure chronic ulcer of other part of left foot with fat layer exposed; L03.116 Cellulitis of left lower limb; E11.42 Type 2 diabetes mellitus with diabetic polyneuropathy
CPT/HCPCS: 87070; 87075; 87077; 87186; 87205; 87640

== ENCOUNTER 2020-03-16 18:17 | Inpatient (IN) | payer MEDICARE, OTHER, SELFPAY ==
[2020-03-16] VITALS (9 sets, daily range): BP systolic 119–156; BP diastolic 40–66; PULSE 62–83; RESP 16–18; TEMP 36.8–37.3; O2SAT 95–99; BMI 33.7; BMI 32.8; BMI 32.9
--- NOTE | 2020-03-16 18:31 | EKG12_ITS ---
Test Reason : CP Blood Pressure : / mmHG Vent. Rate : 078 BPM Atrial Rate : 078 BPM P-R Int : 196 ms QRS Dur : 086 ms QT Int : 392 ms P-R-T Axes : 045 -30 056 degrees QTc Int : 446 ms Normal sinus rhythm Left axis deviation Abnormal ECG Confirmed by ALEJANDRO ANAYA, RODRIGUE ([id number]), shipper and receiving CAMERON CALLES ([id number]) on 03/21/2020 12:29:09 PM Referred By: DARWIN Confirmed By:RODRIGUE ALLEN MD
--- NOTE | 2020-03-16 18:45 | RAD_ITS ---
STUDY: X-RAY CHEST REASON FOR EXAM: Female, 74 years old. CHEST PAIN RADIATING TO LEFT ARM X1 HOUR TECHNIQUE: AP portable COMPARISON: 06/13/2018 FINDINGS: Less than optimal inspiratory effort is seen however the lungs are clear.. There is no demonstrated pleural abnormality. Postop change status post median sternotomy and CABG. Normal size heart. Normal mediastinum and oniel. Normal visualized pulmonary arteries. Normal visualized aortic arch and descending thoracic aorta. Dorsal spine and shoulders demonstrate degenerative change. Normal visualized ribs, and clavicles.. Status post cervical fusion. There is no demonstrated abnormality of the visualized soft tissue structures of the upper abdomen. No significant change since prior study RAD/Chest 1 View (Portable) IMPRESSION: No acute cardiopulmonary pathology Electronically Signed: Nicholas Gibbons MD at 19:11 EDT , Service support ,
[2020-03-16 19:08] LABS: Absolute Lymphocyte Count 1.87 X10^3/uL (0.83-4.51); Absolute Neutrophil Count 4.1 X10^3/uL (2.0-7.7); Basophil# 0.02 X10^3/uL; Basophil% 0.3 % (0-1); Eosinophil# 0.14 X10^3/uL; Eosinophils% 2.1 % (0-5); Hematocrit 34.5 % (37-47); Hemoglobin 10.2 g/dL (12.0-15.0); Lymphocyte # 1.87 X10^3/ul (4.0); Lymphocyte % 27.9 % (19-41); Mean Corp Hgb Conc 29.6 g/dL (32-36); Mean Corpuscular Hgb 23.1 pg (27.0-32.0); Mean Corpuscular Volume 78.2 fL (81-99); Mean Platelet Vol. 9.6 fl (6.2-12.0); Monocyte# 0.57 X10^3/uL; Monocyte% 8.5 % (0-10); NRBC Flagged by Analyzer 0 % (0-5); Neutrophil # 4.08 X10^3/uL (2.7-7.7); Neutrophil % 60.8 % (47-70); Platelet Count 273 K/mm3 (150-450); RBC Distribution Width CV 18.3 % (11.6-14.6); RBC Distribution Width SD 51.5 fl (35.1-43.9); Red Blood Count 4.41 M/mm3 (4.2-5.4); White Blood Count 6.7 K/mm3 (4.4-11.0)
--- NOTE | 2020-03-16 19:16 | ED.VIS.GEN ---
History of Present Illness Chief Complaint: Chest Pain Narrative: Patient presents with chest pain. She has chronic recurrent chest pain. She has a history of bypass and subsequent stents she had a recent catheterization she has her nitroglycerin her chest pain usually resolves with nitroglycerin however today she needed 4 different nitroglycerin for resolution of her pain. She has no current pain she has no shortness of breath she has no pleuritic component. She has no fever or chills. Past Medical History - Allergies and Home Meds Allergies/Adverse Reactions: Allergies doxycycline Allergy (Severe, Verified 03/16/20 18:22) all over body hives and itching atorvastatin calcium [From Lipitor] Allergy (Verified 03/16/20 18:22) Unknown bupropion HCl [From Wellbutrin] Allergy (Verified 03/16/20 18:22) Unknown mannitol [From Reclast] Allergy (Verified 03/16/20 18:22) joint pain, unable to breathe, unable to walk propoxyphene napsylate [From Darvocet-N 100] Allergy (Verified 03/16/20 18:22) Unknown Quinolones Allergy (Verified 03/16/20 18:22) Unknown Tetanus Vaccines and Toxoid [Tetanus Vaccines & Toxoid] Allergy (Verified 03/16/20 18:22) Chest tightness tizanidine Allergy (Verified 03/16/20 18:22) Unknown zoledronic acid [From Reclast] Allergy (Verified 03/16/20 18:22) joint pain,unable to breathe, unaable to walk JOINT PAIN,UNABLE TO BREATHE,UNABLE TO WALK pravastatin Adverse Reaction (Severe, Verified 03/16/20 18:22) Myalgias gemfibrozil Adverse Reaction (Intermediate, Verified 03/16/20 18:22) Unknown NSAIDS (Non-Steroidal Anti-Inflamma Adverse Reaction (Verified 03/16/20 18:22) Other Primary Care Physician: Con Johnson MD [Primary Care Provider] - Past Medical History: - - Hypertension, hypercholesterolemia, diabetes, cardiac disease Surgical History: appendectomy, coronary bypass surgery, gastric bypass, tonsillectomy, - - Cardiac stent, , Carpal tunnel release, cardiac catheterization, carotid endarterectomy, right foot transmetatarsal amputation, exostectomy left foot Smoking Status: Never smoker - Family History Paternal Family History: Family History (Last Reviewed 02/27/20 @ 21:[address] Judson Massey MD) Mother Cancer CVA (cerebral vascular accident) CAD (coronary artery disease) Father CAD (coronary artery disease) History of coronary artery bypass graft Sister CAD (coronary artery disease) Multiple sclerosis Other Anxiety Bleeding disorder Depression Diabetes Heart disease High cholesterol Hypertension Family History: Reports: No pertinent history Maternal Family History: Family History (Last Reviewed 02/27/20 @ 21:[address] Judson Massey MD) Mother Cancer CVA (cerebral vascular accident) CAD (coronary artery disease) Father CAD (coronary artery disease) History of coronary artery bypass graft Sister CAD (coronary artery disease) Multiple sclerosis Other Anxiety Bleeding disorder Depression Diabetes Heart disease High cholesterol Hypertension Family History: Reports: No pertinent history Review of Systems All systems negative except as indicated General: Denies: Fever ENT: Denies: Rhinorrhea, Sore throat Cardiovascular: Reports: Chest pain Respiratory: Denies: Dyspnea, Cough Gastrointestinal: Denies: Abdominal pain, Nausea Genitourinary: Denies: Dysuria Musculoskeletal: Denies: Myalgias Skin: Denies: Rash Neurological: Denies: Headache, Weakness Psych: Denies: Depression Hematologic: Denies: Easy bruising, Easy bleeding Physical Exam Vital Signs/Narrative: Vital Signs Temp Pulse Resp BP Pulse Ox 03/16/20 18:42 98 03/16/20 18:18 99.1 F 83 18 151/61 H 98 General: Well nourished Head: Normocephalic Eyes: Perrl, EOMI ENT: Moist mucous membranes Neck: Supple Cardiovascular: Regular rate, Regular rhythm Respiratory: No distress, CTA bilaterally Abdomen: Soft, Nontender Back: Nontender, Normal Inspection Extremities: No edema Skin: Normal color Neurological: Alert, Oriented x3 Psychological: Normal affect Diagnostic/Tx/Re-eval - Rhythm Strip Rhythm Strip: Sinus Rhythm Rate: 78 Ectopy: None - EKG Initial EKG Interpretation: - - This rhythm with a rate of 78. Left axis deviation. Normal [place] and QTc intervals. Nonspecific changes otherwise unremarkable EKG Interpreted by emergency doctor - Medical Decision Making Patient has an unremarkable work-up however I looked back in her history she has a 65% mid RCA lesion, this was in 2019 this may have progressed, her pain was somewhat worrisome today therefore I will admit I talked to cardiology, Dr. Perez he also agreed. ED Disposition - Plan for ED Patient: Disposition: Acute Care [facility] Diagnosis: Chest pain Referrals: Con Johnson MD [Primary Care Provider] -
[2020-03-16 19:33] LABS: Anion Gap 7 (5-15); BUN 47 mg/dL (7-18); BUN/Creat Ratio 27.5 RATIO (10-20); Calcium,Total 8.3 mg/dL (8.5-10.1); Chloride 112 mmol/L (98-107); Creatinine, Serum 1.71 mg/dL (0.55-1.02); EST Glomerular Filtration Rate 31 mL/min (>60); Est Glom Filt Rate - Afr Amer 38 mL/min (>60); Estimated Creatinine Clearance 25.68 ml/min; Glucose 297 mg/dL (74-106); Potassium 5.6 mmol/L (3.5-5.1); Sodium Level 137 mmol/L (136-145)
--- NOTE | 2020-03-16 20:39 | HP.PCM_ITS ---
Problem List (1) Chest pain Status: Acute (2) History of CVA (cerebrovascular accident) Status: Chronic (3) Peripheral arterial occlusive disease Status: Chronic (4) Stented coronary artery Status: Chronic Comment: PTCA and YASIR to proximal and distal CX per Dr. Hatfield @ [facility]:(Promus Premier 4.0 X 12 mm L2 stent from distal left main into proximal LCX; Promus Premier RX 2.25 X 12 mm L1 stent in distal LCX) 12/03/2018:Triple vessel CAD of the LAD, LCX, RCA Successful PTCA/YASIR mid LCX with a 2.5 x 20 Promus Synergy stent; 85%-->0-%, no dissection. 12/24/18:FFR of RCA=0.97, negative, left for medical managemen (5) History of coronary artery bypass graft Status: Chronic Comment: CABG X 3 vessels [facility]:DANIEL to LAD, reverse SVG to dx and to 2nd OM per Dr. Borjas @ [facility] 09/09/2014 (6) Hypertension Status: Chronic Qualifiers: Hypertension type: essential hypertension Qualified Code(s): I10 - Essential (primary) hypertension (7) Obesity Status: Chronic Qualifiers: Obesity type: due to excess calories Obesity classification: adult class 1 (BMI 30 - 34.9) Body mass index: BMI 31.0-31.9 (8) Diabetes mellitus type II Status: Chronic (9) Iron deficiency anemia Status: Chronic Qualifiers: (10) GERD (gastroesophageal reflux disease) Status: Chronic History of Present Illness Date of Admission: 03/16/20 Chief Complaint: Chest pain. The patient is a 74 year old F with multiple medical comorbidities presented to the emergency room because of chest pain. Her pain started today at 5 PM when she was changing her clots, started having left-sided chest pain, dull aching pain, radiates to her left upper extremity, associated with shortness of breath and nausea without vomiting, partially relieved with 3 tablets of sublingual nitroglycerin and without aggravating or relieving factors. Upon arrival to the emergency department, she received her fourth tablet of sublingual nitro and her pain subsided. She denied dizziness, lightheadedness, sweating, syncope or presyncope. In the emergency department, her vital signs were stable. Her routine blood work was remarkable for chronic anemia with stable hemoglobin, potassium 5.6, BUN is 47, creatinine 1.71. EKG revealed normal sinus rhythm without evidence of acute ischemic changes. Troponin was negative. Chest x-ray showed no acute findings. She is being admitted for chest pain/unstable angina for evaluation. Past Medical History Past Medical History (Chronic Problems): Chronic Problems (Last Updated 03/16/20 @ 20:[address] 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 Hatfield @ [facility]:(Promus Premier 4.0 X 12 mm L2 stent from distal left main into proximal LCX; Promus Premier RX 2.25 X 12 mm L1 stent in distal LCX) 12/03/2018:Triple vessel CAD of the LAD, LCX, RCA Successful PTCA/YASIR mid LCX with a 2.5 x 20 Promus Synergy stent; 85%-->0-%, no dissection. 12/24/18:FFR of RCA=0.97, negative, left for medical managemen History of coronary artery bypass graft (Chronic) CABG X 3 vessels [facility]:DANIEL to LAD, reverse SVG to dx and to 2nd OM per Dr. Borjas @ [facility] 09/09/2014 Atherosclerotic heart disease of [place] coronary artery without angina pectoris (Chronic) CABG X 3 vessels [facility]: DANIEL to LAD, reverse SVG to dx and to 2nd OM per Dr. Borjas @ [facility] 09/09/2014; PTCA/YASIR to Left main, LAD, and OM1 per Dr. Hatfield 12/21/2014; History of stroke (Chronic) Carotid artery disease (Chronic) Peripheral vascular disease (Chronic) Hypertension (Chronic) Hyperlipidemia (Chronic) Coronary artery disease (Chronic) Hypothyroidism (Chronic) Iron deficiency anemia (Chronic) GERD (gastroesophageal reflux disease) (Chronic) Medical History: Medical History (Last Updated 03/16/20 @ 20:[address] Jose M Moseley MD) Ulcer of abdomen wall with fat layer exposed (Chronic) L98.492 History of CVA (cerebrovascular accident) (Chronic) Z86.73 Atherosclerotic heart disease of [place] coronary artery without angina pectoris (Chronic) I25.10 CABG X 3 vessels [facility]: DANIEL to LAD, reverse SVG to dx and to 2nd OM per Dr. Borjas @ [facility] 09/09/2014; PTCA/YASIR to Left main, LAD, and OM1 per Dr. Hatfield 12/21/2014; History of stroke (Chronic) Z86.73 Carotid artery disease (Chronic) I77.9 Peripheral vascular disease (Chronic) I73.9 Hypertension (Chronic) I10 Hyperlipidemia (Chronic) E78.5 Coronary artery disease (Chronic) I25.10 Hypothyroidism (Chronic) E03.9 Iron deficiency anemia (Chronic) D50.9 GERD (gastroesophageal reflux disease) (Chronic) K21.9 Carpal tunnel syndrome G56.00 Gout M10.9 History of blood clots Z86.718 History of blood transfusion Z92.89 IBS (irritable bowel syndrome) K58.9 Neuropathy G62.9 Osteoporosis M81.0 Allergies doxycycline Allergy (Severe, Verified 03/16/20 18:22) all over body hives and itching atorvastatin calcium [From Lipitor] Allergy (Verified 03/16/20 18:22) Unknown bupropion HCl [From Wellbutrin] Allergy (Verified 03/16/20 18:22) Unknown mannitol [From Reclast] Allergy (Verified 03/16/20 18:22) joint pain, unable to breathe, unable to walk propoxyphene napsylate [From Darvocet-N 100] Allergy (Verified 03/16/20 18:22) Unknown Quinolones Allergy (Verified 03/16/20 18:22) Unknown Tetanus Vaccines and Toxoid [Tetanus Vaccines & Toxoid] Allergy (Verified 03/16/20 18:22) Chest tightness tizanidine Allergy (Verified 03/16/20 18:22) Unknown zoledronic acid [From Reclast] Allergy (Verified 03/16/20 18:22) joint pain,unable to breathe, unaable to walk JOINT PAIN,UNABLE TO BREATHE,UNABLE TO WALK pravastatin Adverse Reaction (Severe, Verified 03/16/20 18:22) Myalgias gemfibrozil Adverse Reaction (Intermediate, Verified 03/16/20 18:22) Unknown NSAIDS (Non-Steroidal Anti-Inflamma Adverse Reaction (Verified 03/16/20 18:22) Other Home Medications: Ambulatory Orders Medication Instructions Recorded Levothyroxine Sodium [Levoxyl] 75 mcg PO QHS 03/10/17 Pravastatin Sodium 40 mg PO DAILY 03/10/17 amlodipine 5 mg tablet 5 mg PO DAILY tab 05/05/18 insulin aspart U-100 100 unit/mL 12 unit SC TIDAC ml 05/08/18 (3 mL) subcutaneous pen Morphine Sulfate 3 ml PO Q6H PRN PRN 06/07/18 cyclobenzaprine 10 mg tablet 10 mg PO HS PRN 11/24/18 glucagon (human recombinant) 1 mg 1 mg IM ONCE PRN 11/24/18 solution for injection levomefolate Ca 3 mg-B6 35 1 cap PO BID cap 11/24/18 mg-meB12 2 mg-algal oil 90.314 mg capsule linaclotide 72 mcg capsule 72 mcg PO DAILY PRN 11/24/18 Clobetasol Propionate/Emoll 1 applic TP BID PRN 09/21/19 [Clobetasol Emollient 0.05% Crm] Ergocalciferol [Vitamin D] 50,000 unit PO QWEEK 09/21/19 Esomeprazole Magnesium 20 mg PO DAILY 09/21/19 lisinopril 10 mg tablet 10 mg PO DAILY #90 tab 11/03/19 clopidogrel 75 mg tablet 75 mg PO DAILY #90 tab 11/23/19 duloxetine 30 mg capsule,delayed 30 mg PO QHS cap 01/11/20 release Diclofenac/Gabapentin/lidocaine/prilocaine 1 dose TOPICAL TID 01/12/20 azelastine 137 mcg (0.1 %) nasal 1 spray INTRANASAL BID 01/12/20 spray aerosol calcium citrate 200 mg (950 mg) 200 mg PO BID 01/12/20 tablet cbd 1 dose PO TID PRN 01/12/20 fexofenadine 180 mg tablet 180 mg PO BID tab 01/12/20 insulin detemir U-100 100 unit/mL 30 unit SC BID ml 01/12/20 (3 mL) subcutaneous pen ketoconazole 2 % topical cream 1 applic TOPICAL BID PRN 01/12/20 [id number] 1 cap PO BID 01/12/20 24,000-76,000-120,000 unit capsule,delayed rel quetiapine 100 mg tablet 100 mg PO QHS 01/12/20 saliva stimulant comb. no.2 1 ea MUCOUS MEMBRANE DAILY 01/12/20 Carvedilol 25 mg PO BID 02/26/20 Hydroxyzine HCl 25 mg PO Q8H PRN PRN 02/26/20 Hyoscyamine Sulfate [Hyoscyamine 0.375 mg PO BID 02/26/20 Sulfate ER] Isosorbide Mononitrate [Isosorbide 60 mg PO .COMPLEX 02/26/20 Mononitrate ER] Levomefolate/B6/B12/Algal Oil 1 ea PO BID 02/26/20 [Metanx Capsule] Nitroglycerin [Nitrolingual [place] 0.4 mg SL PRN PRN 02/26/20 ([facility])] Promethazine HCl 12.5 mg PO PRN PRN 02/26/20 Clindamycin HCl [Cleocin] 300 mg PO TID #30 cap 03/07/20 Lactobacillus Acidophilus/Fos 1 ea PO BID #30 tab 03/07/20 [Acidophilus Probiotic Tablet] Surgical History: Surgical History (Last Reviewed 03/16/20 @ 20:[address] Jose M Moseley MD) Stented coronary artery (Chronic) Onset Date: 12/03/18 Z95.5 PTCA and YASIR to proximal and distal CX per Dr. Hatfield @ [facility]:(Promus Premier 4.0 X 12 mm L2 stent from distal left main into proximal LCX; Promus Premier RX 2.25 X 12 mm L1 stent in distal LCX) 12/03/2018:Triple vessel CAD of the LAD, LCX, RCA Successful PTCA/YASIR mid LCX with a 2.5 x 20 Promus Synergy stent; 85%-->0-%, no dissection. 12/24/18:FFR of RCA=0.97, negative, left for medical managemen History of coronary artery bypass graft (Chronic) Z95.1 CABG X 3 vessels [facility]:DANIEL to LAD, reverse SVG to dx and to 2nd OM per Dr. Borjas @ [facility] 09/09/2014 History of gastric bypass (Inactive) Z98.84 History of left heart catheterization (Inactive) Z98.890 CABG X 3 vessels [facility]:DANIEL to LAD, reverse SVG to dx and to 2nd OM per Dr. Borjas @ [facility] 09/09/2014; PTCA andDES to proximal and distal CX per Dr. 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 Jose M Moseley MD) Mother Cancer CVA (cerebral vascular accident) CAD (coronary artery disease) Father CAD (coronary artery disease) History of coronary artery bypass graft Sister CAD (coronary artery disease) Multiple sclerosis Other Anxiety Bleeding disorder Depression Diabetes Heart disease High cholesterol Hypertension Maternal Family History: Family History (Last Reviewed 03/16/20 @ 20:[address] Jose M Moseley MD) Mother Cancer CVA (cerebral vascular accident) CAD (coronary artery disease) Father CAD (coronary artery disease) History of coronary artery bypass graft Sister CAD (coronary artery disease) Multiple sclerosis Other Anxiety Bleeding disorder Depression Diabetes Heart disease High cholesterol Hypertension Review of Systems Constitutional: Denies: Anorexia, Chills, Fever, Weakness Eyes: Denies: Blurred vision, Double vision, Drainage, Redness HEENT: Denies: Difficulty Hearing, Ear Pain, Eye Pain, Nasal Congestion, Sore Throat Cardiovascular: Reports: Chest Pain. Denies: Edema, Heaviness, Orthopnea, Paroxysmal Noc. Dyspnea, Syncope Respiratory: Reports: Shortness of Breath. Denies: Cough, Pleuritic Pain, Sputum production, Wheezing Gastrointestinal: Reports: Nausea. Denies: Abdominal Pain, Constipation, Diarrhea, Vomiting Genitourinary: Denies: Dysuria, Frequency, Hematuria Musculoskeletal: Denies: Arm Pain, Back Pain, Foot Pain Skin: Denies: Dryness, Rash Neurological: Denies: Balance problems, Double vision, Change in Speech, Slurred speech, Focal weakness, Incoordination, Numbness Psychiatric: Denies: Anxiety, Depression Endocrine: Denies: Change in Body Habitus, Polydipsia, Polyuria VTE Information - Inpt Only VTE Present on Admission: No VTE Mechan Device Prophylaxis: None VTE Pharm Prophylaxis ordered?: Yes Patient Problems: Active and Suspected Problems (Last Updated 03/16/20 @ 20:[address] Jose M Moseley MD) Chest pain (Acute) - Physical Exam Vitals/I&O's: Vital Signs Temp Pulse Resp BP Pulse Ox 98.5 F 65 18 156/61 H 99 03/16/20 20:31 03/16/20 20:31 03/16/20 20:31 03/16/20 20:31 03/16/20 20:31 Oxygen Delivery Method Room Air Weight: 191 lb 5.78 oz Body Mass Index (BMI) 32.8 Finger Stick Blood Glucose 193 General: Alert, Oriented x3, Cooperative, No apparent distress HEENT: Atraumatic, PERRLA, EOMI, Normocephalic Oral: Moist Mucosa, No Gingival or Mucosal Lesions/ Ulcerations Neck: Supple, No JVD, Negative Carotid Bruits, Trachea Midline, Thyroid Normal Size and Texture Lungs: Clear to auscultation, Normal air movement, No rhonchi, No wheeze, No rales, Diminished Cardiovascular: Regular rate, Regular Rhythm, Normal S1, Normal S2, PMI Normal Abdomen: Bowel Sounds Present, Soft, Non-Distended, No Hepato-splenomegaly, Tender - Minimal tenderness, no guarding or rigidity, drain in place. Extremities: No clubbing, No cyanosis, No edema Skin: No rashes, Ulcer/ Wound Neurological: Cranial nerves II-XII grossly intact, Motor Exam 5/5 strength throughout Psych/Mental Status: Normal Affect, Appropriate, Alert and oriented to time, place, person, mood and affect Laboratory Results 03/16/20 18:59: WBC 6.7, RBC 4.41, Hgb 10.2 L, Hct 34.5 L, MCV 78.2 L, MCH 23.1 L, MCHC 29.6 L, RDW Std Deviation 51.5 H, RDW Coeff of Marco 18.3 H, Plt Count 273, MPV 9.6, Immature Gran % (Auto) 0.400, Neut % (Auto) 60.8, Lymph % (Auto) 27.9, [place] % (Auto) 8.5, Eos % (Auto) 2.1, Baso % (Auto) 0.3, Absolute Neuts (auto) 4.1, Absolute Lymphs (auto) 1.87, Nucleated RBC % 0 03/16/20 18:59: Sodium 137, Potassium 5.6 H, Chloride 112 H, Carbon Dioxide 18.0 L, Anion Gap 7, BUN 47 H, Creatinine 1.71 H, Estim Creat Clear Calc 25.68, Est GFR (MDRD) Af Amer 38 L, Est GFR (MDRD) Non-Af 31 L, BUN/Creatinine Ratio 27.5 H , Glucose 297 H, Calcium 8.3 L, Troponin I < 0.015 Clinical Impression(s) from Imaging Studies Chest X-Ray 03/16/20 18:45 IMPRESSION: No acute cardiopulmonary pathology Electronically Signed: Nicholas Gibbons MD at 19:11 EDT , Service support , Assessment/Plan All Active Problems (Last Updated 03/16/20 @ 20:[address] Jose M Moseley MD) Chest pain (Acute) This is a 74 years old female patient presented to the emergency room because of chest pain and she is being admitted for evaluation. #1 chest pain/stable angina: EKG reviewed, no acute ischemic changes. Troponin was negative. Chest x-ray showed no acute findings. Chest pain resolved after 4 tablets of sublingual nitroglycerin. Currently, patient is chest pain-free. She had stress echocardiogram on June, that was normal and negative for ischemia by EKG and echocardiographic criteria, ejection fraction was 75%. She had cardiac catheterization on November, that revealed mid RCA lesion, 65% stenosis, FFR was done, no PCI performed. Plan: Admit to PCU for observation, cardiac monitoring, serial cardiac enzymes, repeat EKG tomorrow morning, sublingual nitroglycerin as needed, gentle IV fluids for hydration, Tylenol as needed, cardiology consult, repeat CBC and BMP tomorrow morning. #2 mild hyperkalemia: Due to stage III chronic kidney disease. Potassium is 4.6, EKG was unremarkable. Plan for gentle IV fluids, Kayexalate x1, repeat BMP tomorrow morning. #3 recent history of nonhealing supraumbilical ulcer: In the previous scar line, status post excision of the nonhealing ulcer and wound closure with drain placement. This was done on March 07, [address] Massey who placed patient in clindamycin. Stable, continue clindamycin. Recommend follow-up with Dr. Massey as outpatient. #3 CAD status post CABG and stents: EKG and troponin were unremarkable as above. Plan as above, continue Plavix, also about more nitrate, Coreg and statins. #4 stage III chronic kidney disease: Baseline creatinine has been around 1.2 to 2 mg/dL, admission creatinine is 1.71, stable at baseline. Plan to monitor. #5 type 2 diabetes mellitus: ADA diet, Accu-Cheks, insulin sliding scale, continue detemir insulin twice daily as well as insulin aspart 3 times daily premeal. #6 hypertension: Blood pressure stable, continue with Norvasc, Coreg, nitrate. #7 GERD: Continue PPI. #8 hypothyroidism: Stable, continue levothyroxine. #9 peripheral vascular disease: Stable, continue Plavix and statins. #10 chronic left foot ulcer: She will follow up with the wound care center today , stable, recommend follow-up with them as outpatient. #11 DVT prophylaxis: Subcu heparin. This note was generated with [employer]ored[employer] dictation software. It may contain incorrect words, spelling, and punctuation that were not noted in checking the note before signing. OBSV E&M: [id number] Initial observation care L3
[2020-03-16] MEDS: 0.9% Normal Saline 1,000 ML 75 ML IV (21:56)
[2020-03-16] MEDS: Heparin Injection (Vial) 5,000 UNIT/ML VIAL 5000 UNIT SC (22:02)
--- NOTE | 2020-03-16 22:03 | EKG12_ITS ---
Test Reason : CP ADMIT Blood Pressure : / mmHG Vent. Rate : 070 BPM Atrial Rate : 070 BPM P-R Int : 198 ms QRS Dur : 084 ms QT Int : 408 ms P-R-T Axes : 055 -16 072 degrees QTc Int : 440 ms Normal sinus rhythm with sinus arrhythmia Normal ECG Confirmed by ALEJANDRO ANAYA, RODRIGUE ([id number]), film editor supervisor CAMERON CALLES ([id number]) on 03/21/2020 1:22:20 PM Referred By: DR PRYOR Confirmed By:RODRIGUE ALLEN MD
[2020-03-16] MEDS: Sodium Polystyrene Sulfonate 15 GM/60 ML UDC 30 GM PO (22:04)
[2020-03-16] MEDS: Insulin Lispro 100 UNIT/ML INSULN.PEN SC (22:09)
[2020-03-16 22:20] LABS: Bedside Glucose 195 mg/dL (70-110)
[2020-03-16] MEDS: Creon 24,000 unit DR Capsule 1 CAP PO (22:39)
[2020-03-16] MEDS: QUEtiapine 100 MG Tablet PO (22:40)
[2020-03-16] MEDS: Morphine 2 MG/ML Syringe 1 MG IV (22:42)
[2020-03-16] MEDS: Nitroglycerin (INPATIENT USE) 0.4 MG TAB.SUBL SUBLINGUAL (23:56)
--- NOTE | 2020-03-16 23:57 | NURSING ---
pt c/o chest pain rated a 3. down left arm. nitro given . resp at bedside
[2020-03-17] VITALS (9 sets, daily range): BP systolic 106–148; BP diastolic 37–66; PULSE 65–96; RESP 17–18; TEMP 36.4–36.8; O2SAT 94–98
--- NOTE | 2020-03-17 | EKG12_ITS ---
Test Reason : CP Blood Pressure : / mmHG Vent. Rate : 087 BPM Atrial Rate : 087 BPM P-R Int : 190 ms QRS Dur : 084 ms QT Int : 390 ms P-R-T Axes : 055 -30 055 degrees QTc Int : 469 ms Normal sinus rhythm Left axis deviation Nonspecific ST abnormality Abnormal ECG Confirmed by ALEJANDRO ANAYA, RODRIGEU ([id number]), editorial assistant CAMERON CALLES ([id number]) on 03/21/2020 1:18:40 PM Referred By: DR PRYOR Confirmed By:RODRIGUE ALLEN MD
[2020-03-17] MEDS: Nitroglycerin (INPATIENT USE) 0.4 MG TAB.SUBL SUBLINGUAL ×2 (00:03→00:11)
[2020-03-17] MEDS: Acetaminophen 325 MG Tablet 650 MG PO ×3 (00:06→16:23)
[2020-03-17] MEDS: hydrOXYzine PAM 25 MG Capsule PO ×2 (00:06→16:23)
--- NOTE | 2020-03-17 00:07 | NURSING ---
pt anxious keeps kicking her legs and restless. Vistaril given. 2 nd nitro given with relief to 2. c/o begum tylenol given.
[2020-03-17 02:17] LABS: Absolute Lymphocyte Count 2.09 X10^3/uL (0.83-4.51); Absolute Neutrophil Count 2.5 X10^3/uL (2.0-7.7); Basophil# 0.01 X10^3/uL; Basophil% 0.2 % (0-1); Eosinophil# 0.14 X10^3/uL; Eosinophils% 2.7 % (0-5); Hemoglobin 9.1 g/dL (12.0-15.0); Lymphocyte # 2.09 X10^3/ul (4.0); Lymphocyte % 39.7 % (19-41); Mean Corp Hgb Conc 30.3 g/dL (32-36); Mean Corpuscular Hgb 23.5 pg (27.0-32.0); Mean Corpuscular Volume 77.5 fL (81-99); Mean Platelet Vol. 9.7 fl (6.2-12.0); Monocyte# 0.51 X10^3/uL; Monocyte% 9.7 % (0-10); NRBC Flagged by Analyzer 0 % (0-5); Neutrophil % 47.3 % (47-70); Platelet Count 206 K/mm3 (150-450); RBC Distribution Width CV 18.2 % (11.6-14.6); RBC Distribution Width SD 51.6 fl (35.1-43.9); Red Blood Count 3.87 M/mm3 (4.2-5.4); White Blood Count 5.3 K/mm3 (4.4-11.0)
[2020-03-17 02:36] LABS: Anion Gap 8 (5-15); BUN 47 mg/dL (7-18); BUN/Creat Ratio 28.8 RATIO (10-20); Chloride 115 mmol/L (98-107); Creatinine, Serum 1.63 mg/dL (0.55-1.02); EST Glomerular Filtration Rate 33 mL/min (>60); Est Glom Filt Rate - Afr Amer 40 mL/min (>60); Estimated Creatinine Clearance 26.94 ml/min; Glucose 277 mg/dL (74-106); Potassium 4.5 mmol/L (3.5-5.1); Sodium Level 140 mmol/L (136-145)
--- NOTE | 2020-03-17 05:55 | EKG12_ITS ---
Test Reason : AM EKG Blood Pressure : / mmHG Vent. Rate : 073 BPM Atrial Rate : 073 BPM P-R Int : 222 ms QRS Dur : 084 ms QT Int : 414 ms P-R-T Axes : 060 -19 060 degrees QTc Int : 456 ms Sinus rhythm with 1st degree A-V block Otherwise normal ECG Confirmed by ALEJANDRO ANAYA, RODRIGUE ([id number]), sports editor CAMERON CALLES ([id number]) on 03/21/2020 1:16:38 PM Referred By: DR PRYOR Confirmed By:RODRIGUE ALLEN MD
[2020-03-17] MEDS: Cephalexin 500 MG Capsule PO ×2 (06:14→13:36)
[2020-03-17] MEDS: Clindamycin HCl 150 MG Capsule 300 MG PO ×2 (06:14→13:36)
[2020-03-17] MEDS: Insulin Lispro 100 UNIT/ML INSULN.PEN SC ×3 (09:22→16:28)
[2020-03-17] MEDS: Carvedilol 25 MG Tablet PO (09:35)
[2020-03-17] MEDS: Heparin Injection (Vial) 5,000 UNIT/ML VIAL 5000 UNIT SC (09:35)
[2020-03-17] MEDS: Creon 24,000 unit DR Capsule 1 CAP PO (09:35)
[2020-03-17] MEDS: Lisinopril 10 MG Tablet PO (09:36)
[2020-03-17] MEDS: Pantoprazole Sodium 20 MG Tablet PO (09:36)
[2020-03-17] MEDS: Clopidogrel Bisulfate 75 MG Tablet PO (09:36)
[2020-03-17] MEDS: amLODIPine 5 MG Tablet PO (09:36)
[2020-03-17] MEDS: Isosorbide Mononitrate 60 MG Tablet PO (09:36)
[2020-03-17] MEDS: Pravastatin 40 MG Tablet PO (09:36)
--- NOTE | 2020-03-17 09:38 | NURSING ---
wound photo: left plantar foot
--- NOTE | 2020-03-17 09:40 | NURSING ---
wound photo: abdomen
[2020-03-17 10:00] LABS: Bedside Glucose 236 mg/dL (70-110)
[2020-03-17 11:56] LABS: Bedside Glucose 206 mg/dL (70-110)
--- NOTE | 2020-03-17 12:55 | PN.SURG_ITS ---
Patient Problems: Active and Suspected Problems (Last Updated 03/16/20 @ 20:[address] Jose M Moseley MD) Chest pain (Acute) - Physical Exam Vitals/I&O's: Vital Signs Temp Pulse Resp BP Pulse Ox 97.9 F 76 18 114/53 L 96 03/17/20 09:22 03/17/20 09:22 03/17/20 09:22 03/17/20 09:22 03/17/20 09:22 Oxygen Delivery Method Room Air Weight: 191 lb 12.835 oz Body Mass Index (BMI) 32.9 Finger Stick Blood Glucose 193 Intake and Output for Last 24 Hours 03/15/20 03/16/20 03/17/20 23:59 23:59 23:59 Intake Total 540 / 540 1000 / 1000 Output Total 250 / 250 Balance 290 / 290 1000 / 1000 Laboratory Results 03/16/20 18:59: WBC 6.7, RBC 4.41, Hgb 10.2 L, Hct 34.5 L, MCV 78.2 L, MCH 23.1 L, MCHC 29.6 L, RDW Std Deviation 51.5 H, RDW Coeff of Marco 18.3 H, Plt Count 273, MPV 9.6, Immature Gran % (Auto) 0.400, Neut % (Auto) 60.8, Lymph % (Auto) 27.9, [place] % (Auto) 8.5, Eos % (Auto) 2.1, Baso % (Auto) 0.3, Absolute Neuts (auto) 4.1, Absolute Lymphs (auto) 1.87, Nucleated RBC % 0 03/16/20 18:59: Sodium 137, Potassium 5.6 H, Chloride 112 H, Carbon Dioxide 18.0 L, Anion Gap 7, BUN 47 H, Creatinine 1.71 H, Estim Creat Clear Calc 25.68, Est GFR (MDRD) Af Amer 38 L, Est GFR (MDRD) Non-Af 31 L, BUN/Creatinine Ratio 27.5 H , Glucose 297 H, Calcium 8.3 L, Troponin I < 0.015 03/16/20 22:08: POC Glucose 195 H 03/16/20 22:10: Troponin I < 0.015 03/17/20 02:00: WBC 5.3, RBC 3.87 L, Hgb 9.1 L, Hct 30.0 L, MCV 77.5 L, MCH 23.5 L, MCHC 30.3 L, RDW Std Deviation 51.6 H, RDW Coeff of Marco 18.2 H, Plt Count 206, MPV 9.7, Immature Gran % (Auto) 0.400, Neut % (Auto) 47.3, Lymph % (Auto) 39.7, [place] % (Auto) 9.7, Eos % (Auto) 2.7, Baso % (Auto) 0.2, Absolute Neuts (auto) 2.5, Absolute Lymphs (auto) 2.09, Nucleated RBC % 0 03/17/20 02:00: Sodium 140, Potassium 4.5, Chloride 115 H, Carbon Dioxide 17.0 L , Anion Gap 8, BUN 47 H, Creatinine 1.63 H, Estim Creat Clear Calc 26.94, Est GFR (MDRD) Af Amer 40 L, Est GFR (MDRD) Non-Af 33 L, BUN/Creatinine Ratio 28.8 H , Glucose 277 H, Calcium 8.0 L 03/17/20 02:00: Troponin I < 0.015 03/17/20 09:19: POC Glucose 236 H 03/17/20 11:48: POC Glucose 206 H Current Medications Acetaminophen (Acetaminophen 325 Mg Tablet) 650 mg PO Q6H PRN PRN PRN Reason: Pain Score 1-10/Temp > 100.7 F Last Admin: 03/17/20 06:16 Dose: 650 mg Documented by: Amlodipine Besylate (Amlodipine 5 Mg Tablet) 5 mg PO DAILY [facility] Last Admin: 03/17/20 09:36 Dose: 5 mg Documented by: Calcium Carbonate (Calcium Carbonate 500 Mg Tablet) 500 mg PO BID [facility] Last Admin: 03/17/20 09:27 Dose: Not Given Documented by: Carvedilol (Carvedilol 25 Mg Tablet) 25 mg PO BID [facility] Last Admin: 03/17/20 09:35 Dose: 25 mg Documented by: Cephalexin (Cephalexin 500 Mg Capsule) 500 mg PO Q8 [facility] Last Admin: 03/17/20 06:14 Dose: 500 mg Documented by: Clindamycin HCl (Clindamycin Hcl 150 Mg Capsule) 300 mg PO TID [facility] Last Admin: 03/17/20 06:14 Dose: 300 mg Documented by: Clopidogrel Bisulfate (Clopidogrel Bisulfate 75 Mg Tablet) 75 mg PO DAILY [facility] Last Admin: 03/17/20 09:36 Dose: 75 mg Documented by: Duloxetine HCl (Duloxetine Hcl 30 Mg Capsule) 30 mg PO QHS [facility] Last Admin: 03/16/20 21:44 Dose: Not Given Documented by: Heparin Sodium (Porcine) (Heparin Injection (Vial) 5,000 Unit/Ml Vial) 5,000 unit SC Q12 [facility] Last Admin: 03/17/20 09:35 Dose: 5,000 unit Documented by: Hydroxyzine Pamoate (Hydroxyzine [place] 25 Mg Capsule) 25 mg PO Q8H PRN PRN PRN Reason: ANXIETY Last Admin: 03/17/20 00:06 Dose: 25 mg Documented by: Hyoscyamine Sulfate (Hyoscyamine 0.375 Mg Tablet) 0.375 mg PO BID [facility] Last Admin: 03/17/20 09:36 Dose: 0.375 mg Documented by: Sodium Chloride () 250 mls @ 15 mls/hr IV .[id number] PRN PRN Reason: Saline Flush Sodium Chloride () 250 mls @ 15 mls/hr IV .[id number] PRN PRN Reason: Additional IVPB Infusion Insulin Glargine (Insulin Glargine 100 Units/Ml Pen) 30 units SC BID [facility] Last Admin: 03/17/20 09:29 Dose: 30 u Documented by: Insulin Human Lispro (Insulin Lispro 100 Unit/Ml Insuln.Pen) 0 unit SC ACHS [facility]; Protocol Last Admin: 03/17/20 11:50 Dose: 2 u Documented by: Insulin Human Lispro (Insulin Lispro 100 Unit/Ml Insuln.Pen) 12 unit SC 0800,1200,1700 [facility] Last Admin: 03/17/20 11:50 Dose: Not Given Documented by: Isosorbide Mononitrate (Isosorbide Mononitrate 60 Mg Tablet) 60 mg PO DAILY [facility] Last Admin: 03/17/20 09:36 Dose: 60 mg Documented by: Isosorbide Mononitrate (Isosorbide Mononitrate 120 Mg Tablet) 120 mg PO QHS [facility] Last Admin: 03/16/20 21:45 Dose: Not Given Documented by: L-Arginine/L-Glutamine/Calcium HMB ([facility] (Unflavored) Packet) [facility] Levothyroxine Sodium (Levothyroxine 75 Mcg Tablet) 75 mcg PO QHS [facility] Last Admin: 03/16/20 21:48 Dose: Not Given Documented by: Lisinopril (Lisinopril 10 Mg Tablet) 10 mg PO DAILY [facility] Last Admin: 03/17/20 09:36 Dose: 10 mg Documented by: Morphine Sulfate (Morphine 2 Mg/Ml Syringe) 1 mg IV Q3H PRN PRN PRN Reason: Pain Score 6-10 Last Admin: 03/16/20 22:42 Dose: 1 mg Documented by: Nitroglycerin (Nitroglycerin (Inpatient Use) 0.4 Mg Tab.Subl) 0.4 mg SUBLINGUAL Q5M PRN PRN Reason: CARDIAC/CHEST PAIN Last Admin: 03/17/20 00:11 Dose: 1 tab Documented by: Pancrelipase (Creon 24,[address] Capsule) 1 capsule PO BID [facility] Last Admin: 03/17/20 09:35 Dose: 1 capsule Documented by: Pantoprazole Sodium (Pantoprazole Sodium 20 Mg Tablet) 20 mg PO DAILY [facility] Last Admin: 03/17/20 09:36 Dose: 20 mg Documented by: Pravastatin Sodium (Pravastatin 40 Mg Tablet) 40 mg PO DAILY [facility] Last Admin: 03/17/20 09:36 Dose: 40 mg Documented by: Quetiapine Fumarate (Quetiapine 100 Mg Tablet) 100 mg PO QHS [facility] Last Admin: 03/16/20 22:40 Dose: 100 mg Documented by: Senna/Docusate Sodium (Senna/Docusate Sodium 1 Tablet) 2 tablet PO BID PRN PRN PRN Reason: Constipation Sodium Chloride (0.9% Saline Lock 10 Ml Syringe) 10 - 40 ml IV UD PRN PRN Reason: SALINE FLUSH Zolpidem Tartrate (Zolpidem Tartrate 5 Mg Tablet) 5 mg PO QHS PRN PRN PRN Reason: INSOMNIA Medical Necessity - Tobacco Use Smoking Status: Never smoker Tobacco Use: Non-smoker Assessment/Plan All Active Problems (Last Updated 03/16/20 @ 20:[address] Jose M Moseley MD) Chest pain (Acute)
--- NOTE | 2020-03-17 12:58 | PCM.PROGNOTE ---
<ChrisKasandra COMIC BOOK WRITER - Last Filed: 03/17/20 13:06> Patient Problems: Active and Suspected Problems (Last Updated 03/16/20 @ 20:[address] Jose M Moseley MD) Chest pain (Acute) Subjective: Patient seen and examined. Denies further chest pain overnight or this morning. Denies shortness of breath. No other current complaints. - Physical Exam Vitals/I&O's: Vital Signs Temp Pulse Resp BP Pulse Ox 97.9 F 76 18 114/53 L 96 03/17/20 09:22 03/17/20 09:22 03/17/20 09:22 03/17/20 09:22 03/17/20 09:22 Oxygen Delivery Method Room Air Weight: 191 lb 12.835 oz Body Mass Index (BMI) 32.9 Finger Stick Blood Glucose 193 Intake and Output for Last 24 Hours 03/15/20 03/16/20 03/17/20 23:59 23:59 23:59 Intake Total 540 / 540 1000 / 1000 Output Total 250 / 250 Balance 290 / 290 1000 / 1000 General: Alert, Oriented x3, Cooperative HEENT: Atraumatic, PERRLA, EOMI, Normocephalic Neck: Supple, No JVD, Negative Carotid Bruits Lungs: Clear to auscultation, Diminished Cardiovascular: Regular rate, No murmurs Abdomen: Bowel Sounds Present, Soft, Non Tender, Non-Distended, - - Supraumbilical ulcer, drain removed today Extremities: No clubbing, No cyanosis, No edema, Capillary Refill Less than 3 Seconds Skin: - - Supraumbilical ulcer Musculoskeletal: No Tenderness to Palpation of Joints or Extremities Neurological: Cranial nerves II-XII grossly intact, Neuro grossly intact Psych/Mental Status: Normal Affect, Appropriate Laboratory Results 03/16/20 18:59: WBC 6.7, RBC 4.41, Hgb 10.2 L, Hct 34.5 L, MCV 78.2 L, MCH 23.1 L, MCHC 29.6 L, RDW Std Deviation 51.5 H, RDW Coeff of Marco 18.3 H, Plt Count 273, MPV 9.6, Immature Gran % (Auto) 0.400, Neut % (Auto) 60.8, Lymph % (Auto) 27.9, Childress % (Auto) 8.5, Eos % (Auto) 2.1, Baso % (Auto) 0.3, Absolute Neuts (auto) 4.1, Absolute Lymphs (auto) 1.87, Nucleated RBC % 0 03/16/20 18:59: Sodium 137, Potassium 5.6 H, Chloride 112 H, Carbon Dioxide 18.0 L, Anion Gap 7, BUN 47 H, Creatinine 1.71 H, Estim Creat Clear Calc 25.68, Est GFR (MDRD) Af Amer 38 L, Est GFR (MDRD) Non-Af 31 L, BUN/Creatinine Ratio 27.5 H, Glucose 297 H, Calcium 8.3 L, Troponin I < 0.015 03/16/20 22:08: POC Glucose 195 H 03/16/20 22:10: Troponin I < 0.015 03/17/20 02:00: WBC 5.3, RBC 3.87 L, Hgb 9.1 L, Hct 30.0 L, MCV 77.5 L, MCH 23.5 L, MCHC 30.3 L, RDW Std Deviation 51.6 H, RDW Coeff of Marco 18.2 H, Plt Count 206, MPV 9.7, Immature Gran % (Auto) 0.400, Neut % (Auto) 47.3, Lymph % (Auto) 39.7, Childress % (Auto) 9.7, Eos % (Auto) 2.7, Baso % (Auto) 0.2, Absolute Neuts (auto) 2.5, Absolute Lymphs (auto) 2.09, Nucleated RBC % 0 03/17/20 02:00: Sodium 140, Potassium 4.5, Chloride 115 H, Carbon Dioxide 17.0 L, Anion Gap 8, BUN 47 H, Creatinine 1.63 H, Estim Creat Clear Calc 26.94, Est GFR (MDRD) Af Amer 40 L, Est GFR (MDRD) Non-Af 33 L, BUN/Creatinine Ratio 28.8 H, Glucose 277 H, Calcium 8.0 L 03/17/20 02:00: Troponin I < 0.015 03/17/20 09:19: POC Glucose 236 H 03/17/20 11:48: POC Glucose 206 H Current Medications Acetaminophen (Acetaminophen 325 Mg Tablet) 650 mg PO Q6H PRN PRN PRN Reason: Pain Score 1-10/Temp > 100.7 F Last Admin: 03/17/20 06:16 Dose: 650 mg Documented by: Amlodipine Besylate (Amlodipine 5 Mg Tablet) 5 mg PO DAILY [facility] Last Admin: 03/17/20 09:36 Dose: 5 mg Documented by: Calcium Carbonate (Calcium Carbonate 500 Mg Tablet) 500 mg PO BID [facility] Last Admin: 03/17/20 09:27 Dose: Not Given Documented by: Carvedilol (Carvedilol 25 Mg Tablet) 25 mg PO BID [facility] Last Admin: 03/17/20 09:35 Dose: 25 mg Documented by: Cephalexin (Cephalexin 500 Mg Capsule) 500 mg PO Q8 [facility] Last Admin: 03/17/20 06:14 Dose: 500 mg Documented by: Clindamycin HCl (Clindamycin Hcl 150 Mg Capsule) 300 mg PO TID [facility] Last Admin: 03/17/20 06:14 Dose: 300 mg Documented by: Clopidogrel Bisulfate (Clopidogrel Bisulfate 75 Mg Tablet) 75 mg PO DAILY [facility] Last Admin: 03/17/20 09:36 Dose: 75 mg Documented by: Duloxetine HCl (Duloxetine Hcl 30 Mg Capsule) 30 mg PO QHS [facility] Last Admin: 03/16/20 21:44 Dose: Not Given Documented by: Heparin Sodium (Porcine) (Heparin Injection (Vial) 5,000 Unit/Ml Vial) 5,000 unit SC Q12 [facility] Last Admin: 03/17/20 09:35 Dose: 5,000 unit Documented by: Hydroxyzine Pamoate (Hydroxyzine [place] 25 Mg Capsule) 25 mg PO Q8H PRN PRN PRN Reason: ANXIETY Last Admin: 03/17/20 00:06 Dose: 25 mg Documented by: Hyoscyamine Sulfate (Hyoscyamine 0.375 Mg Tablet) 0.375 mg PO BID [facility] Last Admin: 03/17/20 09:36 Dose: 0.375 mg Documented by: Sodium Chloride () 250 mls @ 15 mls/hr IV .[id number] PRN PRN Reason: Saline Flush Sodium Chloride () 250 mls @ 15 mls/hr IV .[id number] PRN PRN Reason: Additional IVPB Infusion Insulin Glargine (Insulin Glargine 100 Units/Ml Pen) 30 units SC BID [facility] Last Admin: 03/17/20 09:29 Dose: 30 u Documented by: Insulin Human Lispro (Insulin Lispro 100 Unit/Ml Insuln.Pen) 0 unit SC ACHS [facility]; Protocol Last Admin: 03/17/20 11:50 Dose: 2 u Documented by: Insulin Human Lispro (Insulin Lispro 100 Unit/Ml Insuln.Pen) 12 unit SC 0800,1200,1700 [facility] Last Admin: 03/17/20 11:50 Dose: Not Given Documented by: Isosorbide Mononitrate (Isosorbide Mononitrate 60 Mg Tablet) 60 mg PO DAILY [facility] Last Admin: 03/17/20 09:36 Dose: 60 mg Documented by: Isosorbide Mononitrate (Isosorbide Mononitrate 120 Mg Tablet) 120 mg PO QHS [facility] Last Admin: 03/16/20 21:45 Dose: Not Given Documented by: L-Arginine/L-Glutamine/Calcium HMB ([facility] ([facility]flav[facility]) [facility]) [facility] Levothyroxine Sodium (Levothyroxine 75 Mcg Tablet) 75 mcg PO QHS [facility] Last Admin: 03/16/20 21:48 Dose: Not Given Documented by: Lisinopril (Lisinopril 10 Mg Tablet) 10 mg PO DAILY [facility] Last Admin: 03/17/20 09:36 Dose: 10 mg Documented by: Morphine Sulfate (Morphine 2 Mg/Ml Syringe) 1 mg IV Q3H PRN PRN PRN Reason: Pain Score 6-10 Last Admin: 03/16/20 22:42 Dose: 1 mg Documented by: Nitroglycerin (Nitroglycerin (Inpatient Use) 0.4 Mg Tab.Subl) 0.4 mg SUBLINGUAL Q5M PRN PRN Reason: CARDIAC/CHEST PAIN Last Admin: 03/17/20 00:11 Dose: 1 tab Documented by: Pancrelipase (Creon 24,[address] Capsule) 1 capsule PO BID [facility] Last Admin: 03/17/20 09:35 Dose: 1 capsule Documented by: Pantoprazole Sodium (Pantoprazole Sodium 20 Mg Tablet) 20 mg PO DAILY [facility] Last Admin: 03/17/20 09:36 Dose: 20 mg Documented by: Pravastatin Sodium (Pravastatin 40 Mg Tablet) 40 mg PO DAILY [facility] Last Admin: 03/17/20 09:36 Dose: 40 mg Documented by: Quetiapine Fumarate (Quetiapine 100 Mg Tablet) 100 mg PO QHS [facility] Last Admin: 03/16/20 22:40 Dose: 100 mg Documented by: Senna/Docusate Sodium (Senna/Docusate Sodium 1 Tablet) 2 tablet PO BID PRN PRN PRN Reason: Constipation Sodium Chloride (0.9% Saline Lock 10 Ml Syringe) 10 - 40 ml IV UD PRN PRN Reason: SALINE FLUSH Zolpidem Tartrate (Zolpidem Tartrate 5 Mg Tablet) 5 mg PO QHS PRN PRN PRN Reason: INSOMNIA Medical Necessity - Tobacco Use Smoking Status: Never smoker Tobacco Use: Non-smoker Assessment/Plan All Active Problems (Last Updated 03/16/20 @ 20:[address] Jose M Moseley MD) Chest pain (Acute) 1. Chest pain-troponin negative. EKG without ST-T changes. Patient had stress echo June 2019 which was negative for ischemia. Prior heart cath November 2018 which demonstrated mid RCA lesion 65% stenosis, FFR was done with no PCI. Cardiology consulted for further recommendations. 2. Nonhealing supraumbilical ulcer status post excision and wound closure with drain placement 03/07/2020- Dr. Massey following. Continue clindamycin, Keflex regimen. Drain removed today per Dr. Massey. Continue dressing changes/wound care per orders. 3. CAD with history of CABG and stents-continue Plavix, statin, nitrate, beta-fina. 4. Chronic kidney disease stage III-at baseline, trend BMP. 5. Type 2 diabetes [id number] with sliding scale insulin. Continue home insulin regimen. 6. Hypertension-stable, continue Norvasc, Coreg, nitrate. 7. GERD-continue PPI. 8. Hypothyroidism-continue Synthroid. 9. PVD-continue Plavix, statin. 10. Chronic left foot ulceration-wound RN consult. Continue outpatient follow-up with wound center. 11. Chronic microcytic anemia-stable, trend CBC. DVT prophylaxis-heparin subcu This patient was seen by CLIFFORD Grayson under the supervision of Dr. Willson. <Ovi Willson - Last Filed: 03/17/20 16:01> Subjective: Seen and examined. Patient does not have chest pain. She had chest pain for about 40 minutes last night while she was having supper. No shortness of breath. Objective: Physical exam General: Alert, Oriented x3, Cooperative HEENT: Atraumatic, PERRLA, EOMI, Normocephalic Oral: No Gingival or Mucosal Lesions/ Ulcerations Neck: Supple, No JVD, Negative Carotid Bruits Lungs: Air entry diminished in bilateral lung bases. No crepitation/rhonchi Cardiovascular: Sinus arrhythmia on oil field pumper, normal S1, Normal S2, systolic murmur over LLSB Abdomen: Bowel Sounds Present, Soft, Non Tender, Non-Distended : No renal angle tenderness. No suprapubic tenderness. Extremities: No edema, Capillary Refill Less than 3 Seconds Skin: No rashes, No breakdown Musculoskeletal: No Tenderness to Palpation of Joints or Extremities. 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 Neurological: Cranial nerves II-XII grossly intact, Deep Tendon Reflexes 2+/4 and Symmetrical, Neuro grossly intact Psych/Mental Status: Normal Affect, Appropriate. - Physical Exam Vitals/I&O's: Vital Signs Temp Pulse Resp BP Pulse Ox 97.6 F L 65 18 148/66 H 98 03/17/20 15:21 03/17/20 15:21 03/17/20 15:21 03/17/20 15:21 03/17/20 15:21 Oxygen Delivery Method Room Air Weight: 191 lb 12.835 oz Body Mass Index (BMI) 32.9 Finger Stick Blood Glucose 193 Intake and Output for Last 24 Hours 03/15/20 03/16/20 03/17/20 23:59 23:59 23:59 Intake Total 540 / 540 1200 / 1200 Output Total 250 / 250 Balance 290 / 290 1200 / 1200 Laboratory Results 03/16/20 18:59: WBC 6.7, RBC 4.41, Hgb 10.2 L, Hct 34.5 L, MCV 78.2 L, MCH 23.1 L, MCHC 29.6 L, RDW Std Deviation 51.5 H, RDW Coeff of Marco 18.3 H, Plt Count 273, MPV 9.6, Immature Gran % (Auto) 0.400, Neut % (Auto) 60.8, Lymph % (Auto) 27.9, Childress % (Auto) 8.5, Eos % (Auto) 2.1, Baso % (Auto) 0.3, Absolute Neuts (auto) 4.1, Absolute Lymphs (auto) 1.87, Nucleated RBC % 0 10/21/20 18:59: Sodium 137, Potassium 5.6 H, Chloride 112 H, Carbon Dioxide 18.0 L, Anion Gap 7, BUN 47 H, Creatinine 1.71 H, Estim Creat Clear Calc 25.68, Est GFR (MDRD) Af Amer 38 L, Est GFR (MDRD) Non-Af 31 L, BUN/Creatinine Ratio 27.5 H, Glucose 297 H, Calcium 8.3 L, Troponin I < 0.015 03/16/20 22:08: POC Glucose 195 H 03/16/20 22:10: Troponin I < 0.015 03/17/20 02:00: WBC 5.3, RBC 3.87 L, Hgb 9.1 L, Hct 30.0 L, MCV 77.5 L, MCH 23.5 L, MCHC 30.3 L, RDW Std Deviation 51.6 H, RDW Coeff of Marco 18.2 H, Plt Count 206, MPV 9.7, Immature Gran % (Auto) 0.400, Neut % (Auto) 47.3, Lymph % (Auto) 39.7, Childress % (Auto) 9.7, Eos % (Auto) 2.7, Baso % (Auto) 0.2, Absolute Neuts (auto) 2.5, Absolute Lymphs (auto) 2.09, Nucleated RBC % 0 03/17/20 02:00: Sodium 140, Potassium 4.5, Chloride 115 H, Carbon Dioxide 17.0 L, Anion Gap 8, BUN 47 H, Creatinine 1.63 H, Estim Creat Clear Calc 26.94, Est GFR (MDRD) Af Amer 40 L, Est GFR (MDRD) Non-Af 33 L, BUN/Creatinine Ratio 28.8 H, Glucose 277 H, Calcium 8.0 L 03/17/20 02:00: Troponin I < 0.015 03/17/20 09:19: POC Glucose 236 H 03/17/20 11:48: POC Glucose 206 H Current Medications Acetaminophen (Acetaminophen 325 Mg Tablet) 650 mg PO Q6H PRN PRN PRN Reason: Pain Score 1-10/Temp > 100.7 F Last Admin: 03/17/20 06:16 Dose: 650 mg Documented by: Amlodipine Besylate (Amlodipine 5 Mg Tablet) 5 mg PO DAILY [facility] Last Admin: 03/17/20 09:36 Dose: 5 mg Documented by: Calcium Carbonate (Calcium Carbonate 500 Mg Tablet) 500 mg PO BID [facility] Last Admin: 03/17/20 09:27 Dose: Not Given Documented by: Carvedilol (Carvedilol 25 Mg Tablet) 25 mg PO BID [facility] Last Admin: 03/17/20 09:35 Dose: 25 mg Documented by: Cephalexin (Cephalexin 500 Mg Capsule) 500 mg PO Q8 [facility] Last Admin: 03/17/20 13:36 Dose: 500 mg Documented by: Clindamycin HCl (Clindamycin Hcl 150 Mg Capsule) 300 mg PO TID [facility] Last Admin: 03/17/20 13:36 Dose: 300 mg Documented by: Clopidogrel Bisulfate (Clopidogrel Bisulfate 75 Mg Tablet) 75 mg PO DAILY [facility] Last Admin: 03/17/20 09:36 Dose: 75 mg Documented by: Duloxetine HCl (Duloxetine Hcl 30 Mg Capsule) 30 mg PO QHS [facility] Last Admin: 03/16/20 21:44 Dose: Not Given Documented by: Heparin Sodium (Porcine) (Heparin Injection (Vial) 5,000 Unit/Ml Vial) 5,000 unit SC Q12 [facility] Last Admin: 03/17/20 09:35 Dose: 5,000 unit Documented by: Hydroxyzine Pamoate (Hydroxyzine [place] 25 Mg Capsule) 25 mg PO Q8H PRN PRN PRN Reason: ANXIETY Last Admin: 03/17/20 00:06 Dose: 25 mg Documented by: Hyoscyamine Sulfate (Hyoscyamine 0.375 Mg Tablet) 0.375 mg PO BID [facility] Last Admin: 03/17/20 09:36 Dose: 0.375 mg Documented by: Sodium Chloride () 250 mls @ 15 mls/hr IV .[id number] PRN PRN Reason: Saline Flush Sodium Chloride () 250 mls @ 15 mls/hr IV .[id number] PRN PRN Reason: Additional IVPB Infusion Insulin Glargine (Insulin Glargine 100 Units/Ml Pen) 30 units SC BID [facility] Last Admin: 03/17/20 09:29 Dose: 30 u Documented by: Insulin Human Lispro (Insulin Lispro 100 Unit/Ml Insuln.Pen) 0 unit SC ACHS [facility]; Protocol Last Admin: 03/17/20 11:50 Dose: 2 u Documented by: Insulin Human Lispro (Insulin Lispro 100 Unit/Ml Insuln.Pen) 12 unit SC 0800,1200,1700 [facility] Last Admin: 03/17/20 11:50 Dose: Not Given Documented by: Isosorbide Mononitrate (Isosorbide Mononitrate 60 Mg Tablet) 60 mg PO DAILY [facility] Last Admin: 03/17/20 09:36 Dose: 60 mg Documented by: Isosorbide Mononitrate (Isosorbide Mononitrate 120 Mg Tablet) 120 mg PO QHS [facility] Last Admin: 03/16/20 21:45 Dose: Not Given Documented by: L-Arginine/L-Glutamine/Calcium HMB (Blue (Unflavored) Packet) [facility] Levothyroxine Sodium (Levothyroxine 75 Mcg Tablet) 75 mcg PO QHS [facility] Last Admin: 03/16/20 21:48 Dose: Not Given Documented by: Lisinopril (Lisinopril 10 Mg Tablet) 10 mg PO DAILY [facility] Last Admin: 03/17/20 09:36 Dose: 10 mg Documented by: Morphine Sulfate (Morphine 2 Mg/Ml Syringe) 1 mg IV Q3H PRN PRN PRN Reason: Pain Score 6-10 Last Admin: 03/16/20 22:42 Dose: 1 mg Documented by: Nitroglycerin (Nitroglycerin (Inpatient Use) 0.4 Mg Tab.Subl) 0.4 mg SUBLINGUAL Q5M PRN PRN Reason: CARDIAC/CHEST PAIN Last Admin: 03/17/20 00:11 Dose: 1 tab Documented by: Pancrelipase (Creon 24,[address] Capsule) 1 capsule PO BID [facility] Last Admin: 03/17/20 09:35 Dose: 1 capsule Documented by: Pantoprazole Sodium (Pantoprazole Sodium 20 Mg Tablet) 20 mg PO DAILY [facility] Last Admin: 03/17/20 09:36 Dose: 20 mg Documented by: Pravastatin Sodium (Pravastatin 40 Mg Tablet) 40 mg PO DAILY [facility] Last Admin: 03/17/20 09:36 Dose: 40 mg Documented by: Quetiapine Fumarate (Quetiapine 100 Mg Tablet) 100 mg PO QHS [facility] Last Admin: 03/16/20 22:40 Dose: 100 mg Documented by: Senna/Docusate Sodium (Senna/Docusate Sodium 1 Tablet) 2 tablet PO BID PRN PRN PRN Reason: Constipation Sodium Chloride (0.9% Saline Lock 10 Ml Syringe) 10 - 40 ml IV UD PRN PRN Reason: SALINE FLUSH Zolpidem Tartrate (Zolpidem Tartrate 5 Mg Tablet) 5 mg PO QHS PRN PRN PRN Reason: INSOMNIA Assessment/Plan This patient was seen in conjunction with Kasandra VELASQUEZ. I have independently interviewed and examined the patient and reviewed pertinent history, examination findings, laboratory and plan of management. I have reviewed the note and agree with the documented findings with the few additional points. In brief, patient is admitted for chest pain with suspicion of unstable angina. Serial troponin enzymes are negative. EKG individually reviewed shows sinus rhythm with first-degree AV block at 73 bpm, LAD. 1 more EKG shows sinus arrhythmia. No significant ST-T abnormality as compared to previous EKG. Patient history of coronary artery status post CABG about 5 years ago and cardiac stent. Continue conservative management Plavix, statin, nitrate and beta-fina. Manager Brand to evaluate. Patient has her comorbidities include CKD stage III, type 2 diabetes mellitus, hypertension, GERD, hypothyroidism, peripheral arterial disease, chronic left foot ulceration and right foot Symes amputation. I have discussed my assessment with Kasandra VELASQUEZ and orders have been reviewed. Inpatient E&M: 62504 Subs Hosp L2
--- NOTE | 2020-03-17 12:58 | PCM.PN.BLA ---
Progress Note Postop #10 Patient is known to me. She had surgery on 03/07/20 where she underwent surgical preparation supraumbilical area in previous scar with excision nonhealing ulcer and 16 cm complex secondary wound closure. Pathology showed no carcinoma. Operative culture was negative. She was recently admitted for chest pain. She had an appointment to see me in the office today which was cancelled due to her admission. On exam, her abdominal incision is dry and intact. Drain has been draining less than 15 ml per day. The drain was removed today without difficulty. She was treated perioperatively with Clindamycin until the drain is removed. That can be stopped. At the time of surgery a compression shree wrap was placed, and she will continue that for a couple more weeks. After discharge, she can followup to see me in the office in a week. STROKE Vital Signs/Narrative: Vital Signs Temp Pulse Resp BP Pulse Ox 03/17/20 09:22 97.9 F 76 18 114/53 L 96
--- NOTE | 2020-03-17 14:07 | CHAPLAIN ---
Type of Pastoral Visit _x__ Initial Visit ___ Follow-up Visit ___ On-call Visit ___ General Patient Visit ___ Spiritual Assessment ___ Family Conference ___ Bereavement ___ Rapid Response ___ Code Blue ___ Other (describe below) Pastoral Care Referral From _x__ Patient ___ Family ___ Nurse ___ Physician ___ Television Operator ___ Improvement Manager ___ Other (describe below) Sacrament/Intervention _x__ Active listening ___ Anointing ___ Scientology ___ Bereavement ___ Communion _x__ Sharron exploration ___ ___ Life review _x__ Prayer ___ Reconciliation ___ Sacrament of Sick _x__ Supportive presence ___ Wedding ___ Other (describe below) Pastoral Comments
[2020-03-17] MEDS: Insulin Lispro 100 UNIT/ML INSULN.PEN 12 UNIT SC (16:26)
[2020-03-17] MEDS: Juven (unflavored) Packet 1 PACKET PO (16:29)
[2020-03-17 16:55] LABS: Bedside Glucose 276 mg/dL (70-110)
--- NOTE | 2020-03-17 17:24 | DCINST_ITS ---
- Discharge Diagnoses Current Active Problems: Current Active and Chronic Problems (Last Updated 03/16/20 @ 20:[address] Jose M Moseley MD) Obesity (Chronic) Diabetes mellitus type II (Chronic) Peripheral arterial occlusive disease (Chronic) Chest pain (Acute) History of CVA (cerebrovascular accident) (Chronic) Stented coronary artery (Chronic 12/03/18) PTCA and YASIR to proximal and distal CX per Dr. Hatfield @ [facility]:(Promus Premier 4.0 X 12 mm L2 stent from distal left main into proximal LCX; Promus Premier RX 2.25 X 12 mm L1 stent in distal LCX) 12/03/2018:Triple vessel CAD of the LAD, LCX, RCA Successful PTCA/YASIR mid LCX with a 2.5 x 20 Promus Synergy stent; 85%-->0-%, no dissection. 12/24/18:FFR of RCA=0.97, negative, left for medical managemen History of coronary artery bypass graft (Chronic) CABG X 3 vessels [facility]:DANIEL to LAD, reverse SVG to dx and to 2nd OM per Dr. Borjas @ [facility] 09/09/2014 Hypertension (Chronic) Iron deficiency anemia (Chronic) GERD (gastroesophageal reflux disease) (Chronic) You will use the following diet at home:: Calorie/Carbohydrate Controlled (specify 1200, 1400, etc) - 1800 ADA diet, Cardiac Discharge Activity: May Not Drive Weight Bearing Status: Weight bearing as tolerated Call your doctor if you observe: Fever of 101 or Higher, Coldness, Increased Pain, Numbness or Tingling, Inability to urinate, Inability to have a bowel movement, Using more than one pad per hour, Shortness of breath, Dizziness, Swelling in the ankles, Prolonged hiccoughing, Increased palpitations (irregular heartbeat), Calf discomfort, Uncontrolled pain Allergies/Adverse Reactions: Allergies doxycycline Allergy (Severe, Verified 03/16/20 18:22) all over body hives and itching atorvastatin calcium [From Lipitor] Allergy (Verified 03/16/20 18:22) Unknown bupropion HCl [From Wellbutrin] Allergy (Verified 03/16/20 18:22) Unknown mannitol [From Reclast] Allergy (Verified 03/16/20 18:22) joint pain, unable to breathe, unable to walk propoxyphene napsylate [From Darvocet-N 100] Allergy (Verified 03/16/20 18:22) Unknown Quinolones Allergy (Verified 03/16/20 18:22) Unknown Tetanus Vaccines and Toxoid [Tetanus Vaccines & Toxoid] Allergy (Verified 03/16/20 18:22) Chest tightness tizanidine Allergy (Verified 03/16/20 18:22) Unknown zoledronic acid [From Reclast] Allergy (Verified 03/16/20 18:22) joint pain,unable to breathe, unaable to walk JOINT PAIN,UNABLE TO BREATHE,UNABLE TO WALK pravastatin Adverse Reaction (Severe, Verified 03/16/20 18:22) Myalgias gemfibrozil Adverse Reaction (Intermediate, Verified 03/16/20 18:) Unknown NSAIDS (Non-Steroidal Anti-Inflamma Adverse Reaction (Verified 03/16/20 18:) Other Medications to take at Discharge Levothyroxine Sodium [Levoxyl] 75 mcg PO QHS 03/10/17 Pravastatin Sodium 40 mg PO QHS 03/10/17 amlodipine 5 mg tablet 5 mg PO DAILY tab 05/05/18 insulin aspart U-100 100 unit/mL (3 mL) subcutaneous pen 12 unit SC TIDAC ml 05/08/18 glucagon (human recombinant) 1 mg solution for injection 1 mg IM ONCE PRN 11/24/18 Ergocalciferol [Vitamin D] 50,000 unit PO QWEEK 09/21/19 Esomeprazole Magnesium 20 mg PO DAILY 09/21/19 lisinopril 10 mg tablet 10 mg PO DAILY #90 tab 11/03/19 clopidogrel 75 mg tablet 75 mg PO DAILY #90 tab 11/23/19 duloxetine 30 mg capsule,delayed release 30 mg PO QHS cap 01/11/20 cbd 1 dose PO TID PRN 01/12/20 fexofenadine 180 mg tablet 180 mg PO DAILY tab 01/12/20 insulin detemir U-100 100 unit/mL (3 mL) subcutaneous pen 30 unit SC BID ml 01/12/20 [id number] 24,000-76,000-120,000 unit capsule,delayed rel 1 cap PO DAILY 01/12/20 quetiapine 100 mg tablet 100 mg PO QHS 01/12/20 Carvedilol 25 mg PO BID 02/26/20 Hydroxyzine HCl 50 mg PO Q8H PRN PRN 02/26/20 Isosorbide Mononitrate [Isosorbide Mononitrate ER] 60 mg PO .COMPLEX 02/26/20 Nitroglycerin [Nitrolingual [place] ([facility])] 0.4 mg SL PRN PRN 02/26/20 Clindamycin HCl [Cleocin] 300 mg PO TID #30 cap 03/07/20 Cephalexin [Keflex] 500 mg PO TID 03/16/20 Allopurinol 100 mg PO DAILY 03/17/20 Calcium Citrate 200 mg PO BID #0 03/17/20 L. Acidophilus/L.bulgaricus [Lactobacillus Tablet] 1 tab PO DAILY 03/17/20 Pregabalin [Lyrica] 50 mg PO Q8H PRN PRN 03/17/20 Ranolazine [Ranexa] 500 mg PO BID #60 tab 03/17/20 The following prescriptions were given: Ranolazine [Ranexa] 500 mg PO BID #60 tab Transmission Status: Pending to [facility]/pharmacy #[id number] Primary Care Physician: Con Johnson MD [Primary Care Provider] - Please follow up with your Primary Care Physician in: in 2 weeks Test Results: Test results from this visit will be discussed in further detail at your follow- up appointment, if applicable. Please Follow Up With: Sanjay Perez MD When: in 3-4 weeks for angina Please Follow Up With: Judson Massey MD When: in wound center
--- NOTE | 2020-03-17 17:33 | PCM.DC.SUM ---
<Kasandra Perez DATA ENTRY MANAGER - Last Filed: 03/17/20 17:40> Discharge Date and Diagnosis - Problem List Patient Problems: Active and Suspected Problems (Last Updated 03/16/20 @ 20:[address] Jose M Moseley MD) Chest pain (Acute) Date of Admission: 03/16/20 Date of Discharge: 03/17/20 - Primary Discharge Diagnosis Acute Problems: Active Problems (Last Updated 03/16/20 @ 20:[address] Jose M Moseley MD) 1. Chest pain-ACS ruled out. 2. Nonhealing supraumbilical ulcer status post excision and wound closure with drain placement 03/07/2020 3. CAD with history of CABG and stents 4. Chronic kidney disease stage III 5. Type 2 diabetes mellitus 6. Hypertension 7. GERD 8. Hypothyroidism 9. PVD 10. Chronic left foot ulceration 11. Chronic microcytic anemia - Secondary Discharge Diagnosis Chronic Problems: Chronic Problems (Last Updated 03/16/20 @ 20:[address] 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 Hatfield @ [facility]:(Promus Premier 4.0 X 12 mm L2 stent from distal left main into proximal LCX; Promus Premier RX 2.25 X 12 mm L1 stent in distal LCX) 12/03/2018:Triple vessel CAD of the LAD, LCX, RCA Successful PTCA/YASIR mid LCX with a 2.5 x 20 Promus Synergy stent; 85%-->0-%, no dissection. 12/24/18:FFR of RCA=0.97, negative, left for medical managemen History of coronary artery bypass graft (Chronic) CABG X 3 vessels [facility]:DANIEL to LAD, reverse SVG to dx and to 2nd OM per Dr. Borjas @ [facility] 09/09/2014 Atherosclerotic heart disease of [place] coronary artery without angina pectoris (Chronic) CABG X 3 vessels [facility]: DANIEL to LAD, reverse SVG to dx and to 2nd OM per Dr. Borjas @ [facility] 09/09/2014; PTCA/YASIR to Left main, LAD, and OM1 per Dr. Hatfield 12/21/2014; History of stroke (Chronic) Carotid artery disease (Chronic) Peripheral vascular disease (Chronic) Hypertension (Chronic) Hyperlipidemia (Chronic) Coronary artery disease (Chronic) Hypothyroidism (Chronic) Iron deficiency anemia (Chronic) GERD (gastroesophageal reflux disease) (Chronic) Hospital Course and Treatment Imaging Results: Diagnostic Data Chest X-Ray 03/16/20 18:45 IMPRESSION: No acute cardiopulmonary pathology Electronically Signed: Nicholas Gibbons MD at 19:11 EDT , Service support , Consultations 03/16/20 22:47 Consult: Onc/Wound/mill set up Routine Comment: foot ulcer and abd incision red Reason for Consult:: wound on foot and abd Dr. Perez- Cardiology Operations: None Procedures: None Summary of Care Provided: The patient is a 74 year old F admitted 03/16/2020 due to chest pain. 1. Chest pain-ACS ruled out. Troponin negative. EKG without ST-T changes. Patient had stress echo June 2019 which was negative for ischemia. Prior heart cath November 2018 which demonstrated mid RCA lesion 65% stenosis, FFR was done with no PCI. Cardiology consulted. Initiated on Ranexa 500 mg twice daily per cardiology recommendations. Follow-up with cardiology as outpatient. 2. Nonhealing supraumbilical ulcer status post excision and wound closure with drain placement 03/07/2020- Dr. Massey following. Continue clindamycin, Keflex regimen. Drain removed 03/[address] Massey. Continue dressing changes/wound care per orders. Continue follow-up at wound center. 3. CAD with history of CABG and stents-continue Plavix, statin, nitrate, beta-fina. 4. Chronic kidney disease stage III-at baseline, trend BMP. 5. Type 2 diabetes mellitus- Continue home insulin regimen. 6. Hypertension-stable, continue Norvasc, Coreg, nitrate. 7. GERD-continue PPI. 8. Hypothyroidism-continue Synthroid. 9. PVD-continue Plavix, statin. 10. Chronic left foot ulceration-wound RN consult. Continue outpatient follow-up with wound center. 11. Chronic microcytic anemia-stable, trend CBC. General: Alert, Oriented x3, Cooperative HEENT: Atraumatic, PERRLA, EOMI, Normocephalic Neck: Supple, No JVD, Negative Carotid Bruits Lungs: Clear to auscultation, Diminished Cardiovascular: Regular rate, No murmurs Abdomen: Bowel Sounds Present, Soft, Non Tender, Non-Distended, - - Supraumbilical ulcer, drain removed today Extremities: No clubbing, No cyanosis, No edema, Capillary Refill Less than 3 Seconds Skin: - - Supraumbilical ulcer Musculoskeletal: No Tenderness to Palpation of Joints or Extremities Neurological: Cranial nerves II-XII grossly intact, Neuro grossly intact Psych/Mental Status: Normal Affect, Appropriate Patient seen and examined prior to discharge. Physical assessment as noted above. Patient is stable for discharge with follow up recommendations as noted above. This patient was seen by CLIFFORD Grayson under the supervision of Dr. Willson. Patient Problems: Active and Suspected Problems (Last Updated 03/16/20 @ 20:[address] Jose M Moseley MD) Chest pain (Acute) - Physical Exam Vitals/I&O's: Vital Signs Temp Pulse Resp BP Pulse Ox 97.6 F L 65 18 148/66 H 98 03/17/20 15:21 03/17/20 15:21 03/17/20 15:21 03/17/20 15:21 03/17/20 15:21 Oxygen Delivery Method Room Air Weight: 191 lb 12.835 oz Body Mass Index (BMI) 32.9 Finger Stick Blood Glucose 193 Intake and Output for Last 24 Hours 03/15/20 03/16/20 03/17/20 23:59 23:59 23:59 Intake Total 540 / 540 1200 / 1200 Output Total 250 / 250 Balance 290 / 290 1200 / 1200 Laboratory Results 03/16/20 18:59: WBC 6.7, RBC 4.41, Hgb 10.2 L, Hct 34.5 L, MCV 78.2 L, MCH 23.1 L, MCHC 29.6 L, RDW Std Deviation 51.5 H, RDW Coeff of Marco 18.3 H, Plt Count 273, MPV 9.6, Immature Gran % (Auto) 0.400, Neut % (Auto) 60.8, Lymph % (Auto) 27.9, [place] % (Auto) 8.5, Eos % (Auto) 2.1, Baso % (Auto) 0.3, Absolute Neuts (auto) 4.1, Absolute Lymphs (auto) 1.87, Nucleated RBC % 0 03/16/20 18:59: Sodium 137, Potassium 5.6 H, Chloride 112 H, Carbon Dioxide 18.0 L, Anion Gap 7, BUN 47 H, Creatinine 1.71 H, Estim Creat Clear Calc 25.68, Est GFR (MDRD) Af Amer 38 L, Est GFR (MDRD) Non-Af 31 L, BUN/Creatinine Ratio 27.5 H, Glucose 297 H, Calcium 8.3 L, Troponin I < 0.015 03/16/20 22:08: POC Glucose 195 H 03/16/20 22:10: Troponin I < 0.015 03/17/20 02:00: WBC 5.3, RBC 3.87 L, Hgb 9.1 L, Hct 30.0 L, MCV 77.5 L, MCH 23.5 L, MCHC 30.3 L, RDW Std Deviation 51.6 H, RDW Coeff of Marco 18.2 H, Plt Count 206, MPV 9.7, Immature Gran % (Auto) 0.400, Neut % (Auto) 47.3, Lymph % (Auto) 39.7, Haskell % (Auto) 9.7, Eos % (Auto) 2.7, Baso % (Auto) 0.2, Absolute Neuts (auto) 2.5, Absolute Lymphs (auto) 2.09, Nucleated RBC % 0 03/17/20 02:00: Sodium 140, Potassium 4.5, Chloride 115 H, Carbon Dioxide 17.0 L, Anion Gap 8, BUN 47 H, Creatinine 1.63 H, Estim Creat Clear Calc 26.94, Est GFR (MDRD) Af Amer 40 L, Est GFR (MDRD) Non-Af 33 L, BUN/Creatinine Ratio 28.8 H, Glucose 277 H, Calcium 8.0 L 03/17/20 02:00: Troponin I < 0.015 03/17/20 09:19: POC Glucose 236 H 03/17/20 11:48: POC Glucose 206 H 03/17/20 16:16: POC Glucose 276 H Current Medications Acetaminophen (Acetaminophen 325 Mg Tablet) 650 mg PO Q6H PRN PRN PRN Reason: Pain Score 1-10/Temp > 100.7 F Last Admin: 03/17/20 16:23 Dose: 650 mg Documented by: Amlodipine Besylate (Amlodipine 5 Mg Tablet) 5 mg PO DAILY [facility] Last Admin: 03/17/20 09:36 Dose: 5 mg Documented by: Calcium Carbonate (Calcium Carbonate 500 Mg Tablet) 500 mg PO BID [facility] Last Admin: 03/17/20 09:27 Dose: Not Given Documented by: Carvedilol (Carvedilol 25 Mg Tablet) 25 mg PO BID [facility] Last Admin: 03/17/20 09:35 Dose: 25 mg Documented by: Cephalexin (Cephalexin 500 Mg Capsule) 500 mg PO Q8 [facility] Last Admin: 03/17/20 13:36 Dose: 500 mg Documented by: Clindamycin HCl (Clindamycin Hcl 150 Mg Capsule) 300 mg PO TID [facility] Last Admin: 03/17/20 13:36 Dose: 300 mg Documented by: Clopidogrel Bisulfate (Clopidogrel Bisulfate 75 Mg Tablet) 75 mg PO DAILY [facility] Last Admin: 03/17/20 09:36 Dose: 75 mg Documented by: Duloxetine HCl (Duloxetine Hcl 30 Mg Capsule) 30 mg PO QHS [facility] Last Admin: 03/16/20 21:44 Dose: Not Given Documented by: Heparin Sodium (Porcine) (Heparin Injection (Vial) 5,000 Unit/Ml Vial) 5,000 unit SC Q12 [facility] Last Admin: 03/17/20 09:35 Dose: 5,000 unit Documented by: Hydroxyzine Pamoate (Hydroxyzine [place] 25 Mg Capsule) 25 mg PO Q8H PRN PRN PRN Reason: ANXIETY Last Admin: 03/17/20 16:23 Dose: 25 mg Documented by: Hyoscyamine Sulfate (Hyoscyamine 0.375 Mg Tablet) 0.375 mg PO BID [facility] Last Admin: 03/17/20 09:36 Dose: 0.375 mg Documented by: Sodium Chloride () 250 mls @ 15 mls/hr IV .[id number] PRN PRN Reason: Saline Flush Sodium Chloride () 250 mls @ 15 mls/hr IV .[id number] PRN PRN Reason: Additional IVPB Infusion Insulin Glargine (Insulin Glargine 100 Units/Ml Pen) 30 units SC BID [facility] Last Admin: 03/17/20 09:29 Dose: 30 u Documented by: Insulin Human Lispro (Insulin Lispro 100 Unit/Ml Insuln.Pen) 0 unit SC ACHS [facility]; Protocol Last Admin: 03/17/20 16:28 Dose: 4 u Documented by: Insulin Human Lispro (Insulin Lispro 100 Unit/Ml Insuln.Pen) 12 unit SC 0800,1200,1700 [facility] Last Admin: 03/17/20 16:26 Dose: 12 u Documented by: Isosorbide Mononitrate (Isosorbide Mononitrate 60 Mg Tablet) 60 mg PO DAILY [facility] Last Admin: 03/17/20 09:36 Dose: 60 mg Documented by: Isosorbide Mononitrate (Isosorbide Mononitrate 120 Mg Tablet) 120 mg PO QHS [facility] Last Admin: 03/16/20 21:45 Dose: Not Given Documented by: L-Arginine/L-Glutamine/Calcium HMB (Blue (Unflavored) Packet) 1 packet PO BIDCM [facility] Last Admin: 03/17/20 16:29 Dose: 1 packet Documented by: Levothyroxine Sodium (Levothyroxine 75 Mcg Tablet) 75 mcg PO QHS [facility] Last Admin: 03/16/20 21:48 Dose: Not Given Documented by: Lisinopril (Lisinopril 10 Mg Tablet) 10 mg PO DAILY [facility] Last Admin: 03/17/20 09:36 Dose: 10 mg Documented by: Morphine Sulfate (Morphine 2 Mg/Ml Syringe) 1 mg IV Q3H PRN PRN PRN Reason: Pain Score 6-10 Last Admin: 03/16/20 22:42 Dose: 1 mg Documented by: Nitroglycerin (Nitroglycerin (Inpatient Use) 0.4 Mg Tab.Subl) 0.4 mg SUBLINGUAL Q5M PRN PRN Reason: CARDIAC/CHEST PAIN Last Admin: 03/17/20 00:11 Dose: 1 tab Documented by: Pancrelipase (Creon 24,[address] Capsule) 1 capsule PO BID [facility] Last Admin: 03/17/20 09:35 Dose: 1 capsule Documented by: Pantoprazole Sodium (Pantoprazole Sodium 20 Mg Tablet) 20 mg PO DAILY [facility] Last Admin: 03/17/20 09:36 Dose: 20 mg Documented by: Pravastatin Sodium (Pravastatin 40 Mg Tablet) 40 mg PO DAILY [facility] Last Admin: 03/17/20 09:36 Dose: 40 mg Documented by: Quetiapine Fumarate (Quetiapine 100 Mg Tablet) 100 mg PO QHS [facility] Last Admin: 03/16/20 22:40 Dose: 100 mg Documented by: Senna/Docusate Sodium (Senna/Docusate Sodium 1 Tablet) 2 tablet PO BID PRN PRN PRN Reason: Constipation Sodium Chloride (0.9% Saline Lock 10 Ml Syringe) 10 - 40 ml IV UD PRN PRN Reason: SALINE FLUSH Zolpidem Tartrate (Zolpidem Tartrate 5 Mg Tablet) 5 mg PO QHS PRN PRN PRN Reason: INSOMNIA Discharge Diet: Low fat/ Low Cholesterol, Carb Control Diet Discharge Activity: May Not Drive Weight Bearing Status: Weight bearing as tolerated Call your doctor if you observe: Fever of 101 or Higher, Coldness, Increased Pain, Numbness or Tingling, Inability to urinate, Inability to have a bowel movement, Using more than one pad per hour, Shortness of breath, Dizziness, Swelling in the ankles, Prolonged hiccoughing, Increased palpitations (irregular heartbeat), Calf discomfort, Uncontrolled pain Home Medications: Medications to take at Discharge Levothyroxine Sodium [Levoxyl] 75 mcg PO QHS 03/10/17 Pravastatin Sodium 40 mg PO QHS 03/10/17 amlodipine 5 mg tablet 5 mg PO DAILY tab 05/05/18 insulin aspart U-100 100 unit/mL (3 mL) subcutaneous pen 12 unit SC TIDAC ml 05/08/18 glucagon (human recombinant) 1 mg solution for injection 1 mg IM ONCE PRN 11/24/18 Ergocalciferol [Vitamin D] 50,000 unit PO QWEEK 09/21/19 Esomeprazole Magnesium 20 mg PO DAILY 09/21/19 lisinopril 10 mg tablet 10 mg PO DAILY #90 tab 11/03/19 clopidogrel 75 mg tablet 75 mg PO DAILY #90 tab 11/23/19 duloxetine 30 mg capsule,delayed release 30 mg PO QHS cap 01/11/20 cbd 1 dose PO TID PRN 01/12/20 fexofenadine 180 mg tablet 180 mg PO DAILY tab 01/12/20 insulin detemir U-100 100 unit/mL (3 mL) subcutaneous pen 30 unit SC BID ml 01/12/20 [id number] 24,000-76,000-120,000 unit capsule,delayed rel 1 cap PO DAILY 01/12/20 quetiapine 100 mg tablet 100 mg PO QHS 01/12/20 Carvedilol 25 mg PO BID 02/26/20 Hydroxyzine HCl 50 mg PO Q8H PRN PRN 02/26/20 Isosorbide Mononitrate [Isosorbide Mononitrate ER] 60 mg PO .COMPLEX 02/26/20 Nitroglycerin [Nitrolingual [place] ([facility])] 0.4 mg SL PRN PRN 02/26/20 Clindamycin HCl [Cleocin] 300 mg PO TID #30 cap 03/07/20 Cephalexin [Keflex] 500 mg PO TID 03/16/20 Allopurinol 100 mg PO DAILY 03/17/20 Calcium Citrate 200 mg PO BID #0 03/17/20 L. Acidophilus/L.bulgaricus [Lactobacillus Tablet] 1 tab PO DAILY 03/17/20 Pregabalin [Lyrica] 50 mg PO Q8H PRN PRN 03/17/20 Ranolazine [Ranexa] 500 mg PO BID #60 tab 03/17/20 Following Prescriptions Were Given to Patient: Ranolazine [Ranexa] 500 mg PO BID #60 tab Transmission Status: Received by [facility]/pharmacy #[id number] Primary Care Physician: Con Johnson MD [Primary Care Provider] - Please follow up with your Primary Care Physician in: in 2 weeks Please Follow Up With: Sanjay Perez MD When: in 3-4 weeks for angina Please Follow Up With: Judson Massey MD When: in wound center Please Follow Up With: Con Johnson MD Disposition: Home Minutes spent on discharge:: 35 Patient Condition:: Stable Medical Necessity - Tobacco Use Smoking Status: Never smoker Tobacco Use: Non-smoker Meaningful Use Info Meaningful Use Diagnoses (Choose all that apply): None applicable <Ovi Willson - Last Filed: 03/18/20 15:26> Discharge Date and Diagnosis - Primary Discharge Diagnosis Acute Problems: Active Problems (Last Updated 03/16/20 @ 20:[address] Jose M Moseley MD) Chest pain (Acute) - Secondary Discharge Diagnosis Chronic Problems: Chronic Problems (Last Updated 03/16/20 @ 20:[address] 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 Hatfield @ [facility]:(Promus Premier 4.0 X 12 mm L2 stent from distal left main into proximal LCX; Promus Premier RX 2.25 X 12 mm L1 stent in distal LCX) 12/03/2018:Triple vessel CAD of the LAD, LCX, RCA Successful PTCA/YASIR mid LCX with a 2.5 x 20 Promus Synergy stent; 85%-->0-%, no dissection. 12/24/18:FFR of RCA=0.97, negative, left for medical managemen History of coronary artery bypass graft (Chronic) CABG X 3 vessels [facility]:DANIEL to LAD, reverse SVG to dx and to 2nd OM per Dr. Borjas @ [facility] 09/09/2014 Atherosclerotic heart disease of [place] coronary artery without angina pectoris (Chronic) CABG X 3 vessels [facility]: DANIEL to LAD, reverse SVG to dx and to 2nd OM per Dr. Borjas @ [facility] 09/09/2014; PTCA/YASIR to Left main, LAD, and OM1 per Dr. Hatfield 12/21/2014; History of stroke (Chronic) Carotid artery disease (Chronic) Peripheral vascular disease (Chronic) Hypertension (Chronic) Hyperlipidemia (Chronic) Coronary artery disease (Chronic) Hypothyroidism (Chronic) Iron deficiency anemia (Chronic) GERD (gastroesophageal reflux disease) (Chronic) Hospital Course and Treatment Consultations 03/16/20 22:47 Consult: Onc/Wound/mill set up Routine Comment: foot ulcer and abd incision red Reason for Consult:: wound on foot and abd Summary of Care Provided: [] This patient was seen in conjunction with Kasandra VELASQUEZ. I have independently interviewed and examined the patient and reviewed pertinent history, examination findings, laboratory and plan of management. I have reviewed the note and agree with the documented findings with the few additional points. In brief, patient is admitted for chest pain with suspicion of unstable angina. Serial troponin enzymes are negative. EKG individually reviewed shows sinus rhythm with first-degree AV block at 73 bpm, LAD. 1 more EKG shows sinus arrhythmia. No significant ST-T abnormality as compared to previous EKG. Patient history of coronary artery status post CABG about 5 years ago and cardiac stent. Continue conservative management Plavix, statin, nitrate and beta-fina. Patient was seen by optical goods drilling machine operator and recommended Ranexa 500 mg p.o. twice daily for angina and follow-up as an outpatient for stress test. Patient has her comorbidities include CKD stage III, type 2 diabetes mellitus, hypertension, GERD, hypothyroidism, peripheral arterial disease, chronic left foot ulceration and right foot Symes amputation. Discharge medication reconciliation done. Discharge follow-up instructions completed. Discharge process discussed with the patient and all questions were answered to patient's satisfaction. Total time spent, exact 35 minutes on discharge meds reconciliation, examination, coordination of care with nurses and ancillary staff, review of imaging and blood test and discussion with the patient on follow-up instructions I have discussed my assessment with Kasandra VELASQUEZ and orders have been reviewed. Objective: Patient was seen and examined on the day of the discharge. Patient had surgery on 03/07/2020 for nonhealing ulcer. She had surgical excision and wound closure. Pathology revealed no carcinoma. Patient was seen by Dr. Massey. Operative cultures were negative. Surgical drain was removed. Follow-up with Dr. Massey in the wound center. - Physical Exam Vitals/I&O's: Vital Signs Temp Pulse Resp BP Pulse Ox 97.6 F L 65 18 148/66 H 98 03/17/20 15:21 03/17/20 15:21 03/17/20 15:21 03/17/20 15:21 03/17/20 15:21 Oxygen Delivery Method Room Air Weight: 191 lb 12.835 oz Body Mass Index (BMI) 32.9 Finger Stick Blood Glucose 193 Intake and Output for Last 24 Hours 03/16/20 03/17/20 03/18/20 23:59 23:59 23:59 Intake Total 540 / 540 1200 / 1200 Output Total 250 / 250 Balance 290 / 290 1200 / 1200 Laboratory Results 03/17/20 16:16: POC Glucose 276 H OBSV E&M: 72014 Observation care discharge
--- NOTE | 2020-03-17 17:56 | PCM.CONS.C ---
Reason for Consult Date of Consultation: 03/17/20 Reason for Consultation: CP History of Present Illness: The patient is a 74 year old F [has medical history of coronary artery disease status post three-vessel CABG in 2014 (DANIEL to LAD, SVG to OM, SVG to diagonal),] Cath in November 2018 revealing occluded vein grafts and patent DANIEL to LAD coming to the hospital with left-sided chest pain. In November 2018 patient underwent PCI to circumflex. She had an RCA lesion which was not significant by FFR. She had stress test in June of this year which was negative for ischemia. Her chest pain this time is left-sided and radiating to the arm, not relieved with nitroglycerin, not exacerbated by exertion. Patient is unsure if this was similar to the chest pain she had prior to CABG and PCI. Patient was admitted to the PCU and 3 sets of troponin have been negative. Review of systems: All systems reviewed. All else is negative except that in the HPI Past Medical History Allergies/Adverse Reactions: Allergies doxycycline Allergy (Severe, Verified 03/16/20 18:22) all over body hives and itching atorvastatin calcium [From Lipitor] Allergy (Verified 03/16/20 18:22) Unknown bupropion HCl [From Wellbutrin] Allergy (Verified 03/16/20 18:22) Unknown mannitol [From Reclast] Allergy (Verified 03/16/20 18:22) joint pain, unable to breathe, unable to walk propoxyphene napsylate [From Darvocet-N 100] Allergy (Verified 03/16/20 18:22) Unknown Quinolones Allergy (Verified 03/16/20 18:22) Unknown Tetanus Vaccines and Toxoid [Tetanus Vaccines & Toxoid] Allergy (Verified 03/16/20 18:22) Chest tightness tizanidine Allergy (Verified 03/16/20 18:22) Unknown zoledronic acid [From Reclast] Allergy (Verified 03/16/20 18:22) joint pain,unable to breathe, unaable to walk JOINT PAIN,UNABLE TO BREATHE,UNABLE TO WALK pravastatin Adverse Reaction (Severe, Verified 03/16/20 18:22) Myalgias gemfibrozil Adverse Reaction (Intermediate, Verified 03/16/20 18:22) Unknown NSAIDS (Non-Steroidal Anti-Inflamma Adverse Reaction (Verified 03/16/20 18:22) Other Home Medications: Ambulatory Orders Medication Instructions Recorded Levothyroxine Sodium [Levoxyl] 75 mcg PO QHS 03/10/17 Pravastatin Sodium 40 mg PO QHS 03/10/17 amlodipine 5 mg tablet 5 mg PO DAILY tab 05/05/18 insulin aspart U-100 100 unit/mL 12 unit SC TIDAC ml 05/08/18 (3 mL) subcutaneous pen glucagon (human recombinant) 1 mg 1 mg IM ONCE PRN 11/24/18 solution for injection Ergocalciferol [Vitamin D] 50,000 unit PO QWEEK 09/21/19 Esomeprazole Magnesium 20 mg PO DAILY 09/21/19 lisinopril 10 mg tablet 10 mg PO DAILY #90 tab 11/03/19 clopidogrel 75 mg tablet 75 mg PO DAILY #90 tab 11/23/19 duloxetine 30 mg capsule,delayed 30 mg PO QHS cap 01/11/20 release cbd 1 dose PO TID PRN 01/12/20 fexofenadine 180 mg tablet 180 mg PO DAILY tab 01/12/20 insulin detemir U-100 100 unit/mL 30 unit SC BID ml 01/12/20 (3 mL) subcutaneous pen voiwma-mlwgnhnw-ahasfhi 1 cap PO DAILY 01/12/20 24,000-76,000-120,000 unit capsule,delayed rel quetiapine 100 mg tablet 100 mg PO QHS 01/12/20 Carvedilol 25 mg PO BID 02/26/20 Hydroxyzine HCl 50 mg PO Q8H PRN PRN 02/26/20 Isosorbide Mononitrate [Isosorbide 60 mg PO .COMPLEX 02/26/20 Mononitrate ER] Nitroglycerin [Nitrolingual [place] 0.4 mg SL PRN PRN 02/26/20 ([facility])] Clindamycin HCl [Cleocin] 300 mg PO TID #30 cap 03/07/20 Cephalexin [Keflex] 500 mg PO TID 03/16/20 Allopurinol 100 mg PO DAILY 03/17/20 Calcium Citrate 200 mg PO BID #0 03/17/20 L. Acidophilus/L.bulgaricus 1 tab PO DAILY 03/17/20 [Lactobacillus Tablet] Pregabalin [Lyrica] 50 mg PO Q8H PRN PRN 03/17/20 Ranolazine [Ranexa] 500 mg PO BID #60 tab 03/17/20 Past Medical History (Chronic Problems): Chronic Problems (Last Updated 03/16/20 @ 20:[address] 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 Hatfield @ [facility]:(Promus Premier 4.0 X 12 mm L2 stent from distal left main into proximal LCX; Promus Premier RX 2.25 X 12 mm L1 stent in distal LCX) 12/03/2018:Triple vessel CAD of the LAD, LCX, RCA Successful PTCA/YASIR mid LCX with a 2.5 x 20 Promus Synergy stent; 85%-->0-%, no dissection. 12/24/18:FFR of RCA=0.97, negative, left for medical managemen History of coronary artery bypass graft (Chronic) CABG X 3 vessels [facility]:DANIEL to LAD, reverse SVG to dx and to 2nd OM per Dr. Borjas @ [facility] 09/09/2014 Atherosclerotic heart disease of [place] coronary artery without angina pectoris (Chronic) CABG X 3 vessels [facility]: DANIEL to LAD, reverse SVG to dx and to 2nd OM per Dr. Borjas @ [facility] 09/09/2014; PTCA/YASIR to Left main, LAD, and OM1 per Dr. Hatfield 12/21/2014; History of stroke (Chronic) Carotid artery disease (Chronic) Peripheral vascular disease (Chronic) Hypertension (Chronic) Hyperlipidemia (Chronic) Coronary artery disease (Chronic) Hypothyroidism (Chronic) Iron deficiency anemia (Chronic) GERD (gastroesophageal reflux disease) (Chronic) Surgical History: appendectomy, coronary bypass surgery, gastric bypass, tonsillectomy, - - Cardiac stent, , Carpal tunnel release, cardiac catheterization, carotid endarterectomy, right foot transmetatarsal amputation, exostectomy left foot Psychiatric History: Anxiety, Depression BAND SPLITTER History: No pertinent BAND SPLITTER history - *Family History Paternal Family History: Family History (Last Reviewed 03/16/20 @ 20:[address] Jose M Moseley MD) Mother Cancer CVA (cerebral vascular accident) CAD (coronary artery disease) Father CAD (coronary artery disease) History of coronary artery bypass graft Sister CAD (coronary artery disease) Multiple sclerosis Other Anxiety Bleeding disorder Depression Diabetes Heart disease High cholesterol Hypertension History Items: No pertinent history Maternal Family History: Family History (Last Reviewed 03/16/20 @ 20:[address] Jose M Moseley MD) Mother Cancer CVA (cerebral vascular accident) CAD (coronary artery disease) Father CAD (coronary artery disease) History of coronary artery bypass graft Sister CAD (coronary artery disease) Multiple sclerosis Other Anxiety Bleeding disorder Depression Diabetes Heart disease High cholesterol Hypertension History Items: No pertinent history Lives: With Family Smoking Status: Never smoker Tobacco Use: Non-smoker Alcohol: None Drugs: None Objective: Vital Signs Temp Pulse Resp BP Pulse Ox 97.6 F L 65 18 148/66 H 98 03/17/20 15:21 03/17/20 15:21 03/17/20 15:21 03/17/20 15:21 03/17/20 15:21 Oxygen Delivery Method Room Air Weight: 191 lb 12.835 oz Body Mass Index (BMI) 32.9 Finger Stick Blood Glucose 193 Intake and Output for Last 24 Hours 03/15/20 03/16/20 03/17/20 23:59 23:59 23:59 Intake Total 540 / 540 1200 / 1200 Output Total 250 / 250 Balance 290 / 290 1200 / 1200 General: Awake, Alert, Oriented x 3 HEENT: Atraumatic Oral: Moist Mucosa Neck: Supple Skin: No Rashes Psych/Mental Status: Appropriate 03/16/20 18:59: WBC 6.7, RBC 4.41, Hgb 10.2 L, Hct 34.5 L, MCV 78.2 L, MCH 23.1 L, MCHC 29.6 L, Plt Count 273, MPV 9.6, Immature Gran % (Auto) 0.400, Neut % (Auto) 60.8, Lymph % (Auto) 27.9, Beckham % (Auto) 8.5, Eos % (Auto) 2.1, Baso % (Auto) 0.3, Absolute Neuts (auto) 4.1, Nucleated RBC % 0 03/16/20 18:59: Sodium 137, Potassium 5.6 H, Chloride 112 H, Carbon Dioxide 18.0 L, Anion Gap 7, BUN 47 H, Creatinine 1.71 H, Est GFR (MDRD) Af Amer 38 L, Est GFR (MDRD) Non-Af 31 L, BUN/Creatinine Ratio 27.5 H, Glucose 297 H, Calcium 8.3 L, Troponin I < 0.015 03/16/20 22:10: Troponin I < 0.015 03/17/20 02:00: WBC 5.3, RBC 3.87 L, Hgb 9.1 L, Hct 30.0 L, MCV 77.5 L, MCH 23.5 L, MCHC 30.3 L, Plt Count 206, MPV 9.7, Immature Gran % (Auto) 0.400, Neut % (Auto) 47.3, Lymph % (Auto) 39.7, Beckham % (Auto) 9.7, Eos % (Auto) 2.7, Baso % (Auto) 0.2, Absolute Neuts (auto) 2.5, Nucleated RBC % 0 03/17/20 02:00: Sodium 140, Potassium 4.5, Chloride 115 H, Carbon Dioxide 17.0 L, Anion Gap 8, BUN 47 H, Creatinine 1.63 H, Est GFR (MDRD) Af Amer 40 L, Est GFR (MDRD) Non-Af 33 L, BUN/Creatinine Ratio 28.8 H, Glucose 277 H, Calcium 8.0 L 03/17/20 02:00: Troponin I < 0.015 Rhythm: EKG: ECHO: Stress Test: Cardiac Cath: PCI: CT Surgery: Holter monitor: EPS: PPM: CXR: Chest CT Scan: Assessment/Plan 1. Chest pain: Appears atypical. Discussed treatment options with the patient in detail. We discussed stress testing as an inpatient, coronary angiography and also a trial with Ranexa. Patient preferred last option which is very reasonable in her. At this time it is reasonable to start her on Ranexa 500 mg p.o. twice daily and she can be discharged home from a cardiac standpoint. She can follow-up with us as an outpatient. 2. Coronary artery disease: Continue her home medications. We are adding Ranexa.
--- NOTE | 2020-03-18 14:59 | CASEMGMT ---
GRICELDA REED Discharge Follow-Up Phone Call. Aysha:? 10 Strata: 3 Discharge Date: 03/17/20 Adm Dx:?? CP, Unstable Angina Call to pt to inquire about how?she?has been doing since being discharged from the hospital.? Pt states, I'm doing really good, honey. She denies having any further CP. She states she does still have some SOB w/exertion when she walks too much but this subsides when she rests and states, It's just so hard to get around with this cast on and having to change all these bandages. Pt has nonhealing abdominal wound from a surgical incision that she sees Dr Massey for. She does does daily dressing changes to this wound and has scheduled a f/u appt with Dr Massey. She also has wounds to her left foot. She has Charcot's joint and this rubbed against her boot and caused wound that has not been healing and has gotten infected. She goes to the [facility] and has an appt scheduled with them as well. She changes this dressing daily. She has all the needed supplies for the dressing changes and states she is managing well. She lives with her and he is able to assist as needed. They live in a bi-level home. No steps to enter. There are 3 steps to go from the family room up to the kitchen and bedrooms. She states is able to navigate the stairs okay. She has canes, a walker, raised toilet seat, and an electric scooter she uses for community distances. She has difficulty getting up/down from commode but her bathroom is so compact and toilet is too [facility] so they have not been able to find rails that will fit around her commode properly. They plan on hiring an [facility] man to have something specially made for this area to help assist her. She denies needs for other DME. She states she was able to product picker the new prescription, Ranexa, and is taking that as prescribed. She has not questions about this medication or her other meds. She has not made an appt @ [facility] knows this is needed and she plans to do so. She states she has their office number to call to schedule this. She has an appt with Dr Johnson on Mar 23. She denies having any needs/question/concerns. RN CM thanked pt for choosing [facility]. [place] [facility] RN CM
== END 2020-03-17 17:26 | disposition home or self-care (01) | DRG 303 ==
LOC: ED 20:18 → PCU 20:56
PROVIDERS: Admitting Provider Hospitalist; Emergency Provider Emergency Medicine; PCP Family Medicine; Visit Provider Internal Medicine
DX: I25.110 Atherosclerotic heart disease of native coronary artery with unstable angina pectoris (principal); I25.118 Atherosclerotic heart disease of native coronary artery with other forms of angina pectoris; L98.492 Non-pressure chronic ulcer of skin of other sites with fat layer exposed; E11.621 Type 2 diabetes mellitus with foot ulcer; E11.610 Type 2 diabetes mellitus with diabetic neuropathic arthropathy; E11.22 Type 2 diabetes mellitus with diabetic chronic kidney disease; I12.9 Hypertensive chronic kidney disease with stage 1 through stage 4 chronic kidney disease, or unspecified chronic kidney disease; N18.30 Chronic kidney disease, stage 3 unspecified; E87.5 Hyperkalemia; E11.51 Type 2 diabetes mellitus with diabetic peripheral angiopathy without gangrene; E11.40 Type 2 diabetes mellitus with diabetic neuropathy, unspecified; L97.522 Non-pressure chronic ulcer of other part of left foot with fat layer exposed; D50.9 Iron deficiency anemia, unspecified; E78.5 Hyperlipidemia, unspecified; E03.9 Hypothyroidism, unspecified; K21.9 Gastro-esophageal reflux disease without esophagitis; F32.9 Major depressive disorder, single episode, unspecified; F41.9 Anxiety disorder, unspecified; E66.09 Other obesity due to excess calories; Z68.32 Body mass index [BMI] 32.0-32.9, adult; Z79.4 Long term (current) use of insulin; Z79.02 Long term (current) use of antithrombotics/antiplatelets; Z79.890 Hormone replacement therapy; Z79.899 Other long term (current) drug therapy; Z86.73 Personal history of transient ischemic attack (TIA), and cerebral infarction without residual deficits; Z86.718 Personal history of other venous thrombosis and embolism; Z98.84 Bariatric surgery status; Z95.1 Presence of aortocoronary bypass graft; Z95.5 Presence of coronary angioplasty implant and graft; Z89.431 Acquired absence of right foot
CPT/HCPCS: 11042; 36415; 71045; 80048; 82962; 84484; 85025; 93005; 97802; 99285; J7030; A4216

== ENCOUNTER 2020-03-23 14:30 | Outpatient (RCR) | payer MEDICARE, OTHER, SELFPAY ==
[2020-03-07 07:12] VITALS: BMI 33.7
[2020-03-16 10:02] VITALS: BP 148/74; PULSE 67; RESP 18; TEMP 36.7; BMI 33.7
[2020-03-16 10:43] VITALS: BP 140/70; PULSE 65
--- NOTE | 2020-03-16 11:20 | PN.PCM_ITS ---
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 Code(s): L97.522 - Non-pressure chronic ulcer of other part of left foot with fat layer exposed Comment: Recurrent (2) Type 2 diabetes mellitus with diabetic polyneuropathy Status: Chronic Code(s): E11.42 - Type 2 diabetes mellitus with diabetic polyneuropathy (3) Cellulitis of left lower limb Status: Resolved Code(s): L03.116 - Cellulitis of left lower limb (4) Charcot's joint of left foot Status: Chronic Code(s): M14.672 - Charcot's joint, left ankle and foot Type of Wound Date of Service: 03/16/20 Chief Complaint: Left foot History of Wound: This is 74-year-old female with diabetic neuropathy history of Charcot left foot with rocker-bottom deformity, coronary artery disease and other comorbidities has a recurrent ulcer. She denies fever, chill, nausea, vomiting. She relates her ulcer reopened when she got her Oralia brace offloading pocket updated and she has been walking around in her house with her Oralia brace without her shoe on. She relates she did not try to break into the brace. It was infected and she was seen by Dr. Zayas [facility] who debrided the ulcer and place her on Keflex. She is also continuing on clindamycin for an abdominal surgery. She denies current diarrhea or foot pain. Progress of Wound: Stable - Physical Exam Vital Signs Temp Pulse Resp BP 98.0 F 65 18 140/70 H 03/16/20 10:02 03/16/20 10:43 03/16/20 10:02 03/16/20 10:43 General: Alert, Oriented x3, Cooperative, No apparent distress HEENT: Atraumatic Extremities: No cyanosis, Capillary Refill Less than 3 Seconds, No Calf Tenderness, Diminished Peripheral Pulses, Edema Skin: Ulcer/ Wound - No purulence, erythema, streaking, odor, infection. The skin is hairless and atrophic Wound Measurements and Assessment WC - Nurse 1 - General Ulcer Measurement Start: 03/16/20 10:01 Freq: Status: Active Protocol: Activity Type Activity Date Activity User E-Sign Co-Sign Detail Recorded Client Recorded Date Recorded By Document 03/16/20 10:02 NE [id number] 03/16/20 10:10 MT 03/16/20 10:02 Wound Center Nurse 1 [Ulcer Assessment] #4- L PLANTAR -Current Size (cm) - Length 0.7 -Current Size (cm) - Width 0.7 -Current Size (cm) - Depth 0.2 -Total Square Cm 0.49 -Exudate Amt Small -Exudate Type Serosanguineous -Wound Margin Thickened & Rolled Under -Granulation Amt Large (67-100%) -Granulation Quality Pale,Marston -Slough/Fibrin No -Texture (Shannon-wound Skin Appearance) Assessed,Callus -Moisture (Shannon-wound Skin Appearance Assessed ) -Color (Shannon-wound Skin Appearance) Assessed -Temperature (Shannon-wound Skin No Abnormality Appearance) (Pt Warm) -Tenderness on Palpation (Shannon-wound No Skin Appearance) -Ulcer Cleansing Rinsed/ Irrigated with Saline -Foul Odor after Cleansing No -Anesthetic Used 4% Lidocaine Solution [Edema Assessment] -Lower Limb Edema Present No -Left Calf (cm) 34 -Left Ankle (cm) 21 WC - Nurse 2 - General Ulcer CM Notes Start: 03/16/20 10:01 Freq: Status: Active Protocol: Activity Type Activity Date Activity User E-Sign Co-Sign Detail Recorded Client Recorded Date Recorded By Document 03/16/20 10:27 [id number] 03/16/20 10:29 [id number] 03/16/20 10:27 Wound Center Nurse 2 [Procedure/Treatment] #4- L PLANTAR -Time 10:27 -Correct Patient Yes -Correct Side, Site, Position Yes -Correct Procedure Yes -Procedure Performed Yes -Type of Procedure Debridement -Clinical Debridement Subcutaneous -Tissue Removed Subcutaneous -Post Debridement (cm) - Length 0.7 -Post Debridement (cm) - Width 0.8 -Post Debridement (cm) - Depth 0.2 -Total Square (Post) (cm) 0.56 -Area of Debridement (cm) - Length 0.7 -Area of Debridement (cm) - Width 0.8 -Total Square (Area) (cm) 0.56 -Tunneling No -Undermining/Tunneling No -Circular Undermining No -Wound/Ulcer Outcome Not Healed -Ulcer Cleansing Rinsed/ Irrigated with Saline -Foul Odor after Cleansing No -Bioengineered Tissue No -Bleeding Controlled with Pressure -Offloading Yes -Type of Offloading Camwalker -Treatment Response Procedure Tolerated Well -Debridement - Subq, 1st 20sq cm Yes [See Physician Procedure note for Specifics] WC - Nurse 3 - General Ulcer D/C NN Start: 03/16/20 10:01 Freq: Status: Active Protocol: Activity Type Activity Date Activity User E-Sign Co-Sign Detail Recorded Client Recorded Date Recorded By Document 03/16/20 10:43 NE [id number] 03/16/20 10:48 NE 03/16/20 10:43 Wound Care Nurse 3 [Wound Dressing] #4- L PLANTAR -Primary Dressing Applied Aquacel Extra -Aquacel Extra 1 Vital Signs [Pulse] -Pulse Rate (60-100) 65 -Pulse Location Monitor [Blood Pressure] -Blood Pressure (90/60-120/80) 140/70 H -Blood Pressure Mean (mm Hg) 93 -Source Monitor -Position Sitting -Blood Pressure Location Right Arm - Visit Discharge [Visit Discharge Information] -Discharge Condition Stable -Ambulatory Status Ambulatory -Clinical Summary of Care Provided Yes Musculoskeletal: No Tenderness to Palpation of Joints or Extremities, Muscle Wasting, - - Rocker-bottom foot deformity without laxity, calor or erythema Neurological: - - Lack of epicritic sensation consistent with neuropathy status Psych/Mental Status: Normal Affect, Appropriate Debridement Note Post-Debridement Measurements/Treatment WC - Nurse 2 - General Ulcer CM Notes Start: 03/16/20 10:01 Freq: Status: Active Protocol: Activity Type Activity Date Activity User E-Sign Co-Sign Detail Recorded Client Recorded Date Recorded By Document 03/16/20 10:27 [id number] 03/16/20 10:29 03/16/20 10:27 Wound Center Nurse 2 #4- L PLANTAR -Time 10:27 -Correct Patient Yes -Correct Side, Site, Position Yes -Correct Procedure Yes -Procedure Performed Yes -Type of Procedure Debridement -Clinical Debridement Subcutaneous -Tissue Removed Subcutaneous -Post Debridement (cm) - Length 0.7 -Post Debridement (cm) - Width 0.8 -Post Debridement (cm) - Depth 0.2 -Total Square (Post) (cm) 0.56 -Area of Debridement (cm) - Length 0.7 -Area of Debridement (cm) - Width 0.8 -Total Square (Area) (cm) 0.56 -Tunneling No -Undermining/Tunneling No -Circular Undermining No -Wound/Ulcer Outcome Not Healed -Ulcer Cleansing Rinsed/ Irrigated with Saline -Foul Odor after Cleansing No -Bioengineered Tissue No -Bleeding Controlled with Pressure -Offloading Yes -Type of Offloading Camwalker -Treatment Response Procedure Tolerated Well -Debridement - Subq, 1st 20sq cm Yes WC - Nurse 3 - General Ulcer D/C NN Start: 03/16/20 10:01 Freq: Status: Active Protocol: Activity Type Activity Date Activity User E-Sign Co-Sign Detail Recorded Client Recorded Date Recorded By Document 03/16/20 10:43 NE [id number] 03/16/20 10:48 NE 03/16/20 10:43 Wound Care Nurse 3 -Primary Dressing Applied Aquacel Extra -Aquacel Extra 1 Vital Signs Pulse Rate (60-100) 65 Pulse Location Monitor Blood Pressure (90/60-120/80) 140/70 H Blood Pressure Mean (mm Hg) 93 Source Monitor Position Sitting Blood Pressure Location Right Arm WC - Visit Discharge Discharge Condition Stable Ambulatory Status Ambulatory Clinical Summary of Care Provided Yes Wound debrided: plantar midfoot Laterality: Left Wound Grade/Stage: grade 1 Type of Debridement: Excisional debridement Anesthesia Used: 5% Lidocaine Gel Depth: in the subcutaneous layer Percentage of wound debrided: 100 Instrument Used: #15 blade Tissue Removed: fibrous, devitalized subcutaneous, biofilm, slough Severity: Fat Layer Exposed Amount of bleeding with debridement: Mild Bleeding Controlled with: Pressure Patient tolerated procedure well Assessment/Plan Assessment: left foot plantar ulcer, britt grade 1, no infection. Midfoot Ch arcot deformity, left. Diabetes with neuropathy. Malnutrition suspected. Other comorbidities Plan: I reviewed and discussed her case. Excisional subcutaneous debridement w as performed as noted in the clinical panel. It appears her local signs of cellulitis have resolved and I do not recommend a Keflex refill. She was advised to complete her course of clindamycin for her abdominal surgery per her surgeons guidelines. I recommend she washes her foot daily with soap and water and does the dressing with Dakin's wet-to-dry. An additional total contact cast will be considered again next week. She was reassured no signs of local infection or acute Charcot findings were seen. She was advised she needs to offload with a cam walker boot. As she has been told in the past it is never appropriate to walk around the house which is the [employer] brace in place without issue nor is it appropriate to wear the Oralia brace while she has an open wound. She demonstrates understanding today. To follow-up with the wound healing center in 1 week or call sooner if she has any questions or concerns or development of local or systemic infection. I answered all of her questions.
[2020-03-23 14:34] VITALS: BP 129/82; PULSE 82; RESP 20; TEMP 36.3; BMI 33.7
[2020-03-23 15:10] VITALS: BP 130/82
--- NOTE | 2020-03-23 16:06 | PN.PCM_ITS ---
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 Code(s): L97.522 - Non-pressure chronic ulcer of other part of left foot with fat layer exposed Comment: Recurrent (2) Type 2 diabetes mellitus with diabetic polyneuropathy Status: Chronic Code(s): E11.42 - Type 2 diabetes mellitus with diabetic polyneuropathy (3) Cellulitis of left lower limb Status: Deleted Code(s): L03.116 - Cellulitis of left lower limb (4) Charcot's joint of left foot Status: Chronic Code(s): M14.672 - Charcot's joint, left ankle and foot Type of Wound Date of Service: 03/23/20 Chief Complaint: Left foot History of Wound: This is 74-year-old female with diabetic neuropathy history of Charcot left foot with rocker-bottom deformity, coronary artery disease and other comorbidities has a recurrent ulcer. She denies fever, chill, nausea, vomiting. She completed her antibiotics. She is using her cam walker boot and washing the foot daily with soap and water. She thinks her foot looks a lot better. Nursing staff is notified me that there appears to be a new blister next to the ulcer that is communicating with it. Progress of Wound: Worsening status with increased ulcer size - Physical Exam Vital Signs Temp Pulse Resp BP 97.4 F L 82 20 H 130/82 H 03/23/20 14:34 03/23/20 14:34 03/23/20 14:34 03/23/20 15:10 General: Alert, Oriented x3, Cooperative, No apparent distress HEENT: Atraumatic Extremities: No cyanosis, Capillary Refill Less than 3 Seconds, No Calf Tenderness, Diminished Peripheral Pulses, Edema - Mild, - - Charcot rocker- bottom foot with medial prominence also that appears chronic without laxity, calor, or crepitus with manipulation Skin: Ulcer/ Wound - No purulence, erythema, string, odor, acute infection. There is an adjacent lateral blister upon debridement the ulcer size is considered enlarged. The base is granular without deep tissue exposure., - - Adjacent skin is hairless and atrophic Wound Measurements and Assessment WC - Nurse 1 - General Ulcer Measurement Start: 03/16/20 10:01 Freq: Status: Active Protocol: Activity Type Activity Date Activity User E-Sign Co-Sign Detail Recorded Client Recorded Date Recorded By Document 03/23/20 14:34 DL [id number] 03/23/20 14:39 DL 03/23/20 14:34 Wound Center Nurse 1 [Ulcer Assessment] #5- L PLANTAR cluster -Current Size (cm) - Length 0.8 -Current Size (cm) - Width 0.8 -Current Size (cm) - Depth 0.3 -Total Square Cm 0.64 -Photo Taken No -Tunneling Position (O'clock) 2 -Tunneling Distance (cm) 0.2 -Exudate Amt Small -Exudate Type Purulent -Wound Margin Distinct, Outline Attached -Granulation Amt Large (67-100%) -Granulation Quality Red -Necrosis Amt Small (1-33%) -Necrotic Tissue Type Adherent Slough -Structure Exposed N/A -Texture (Shannon-wound Skin Appearance) Scarring -Moisture (Shannon-wound Skin Appearance Dry/Scaly ) -Color (Shannon-wound Skin Appearance) Rubor -Temperature (Shannon-wound Skin No Abnormality Appearance) (Pt Warm) -Tenderness on Palpation (Shannon-wound No Skin Appearance) -Ulcer Cleansing Rinsed/ Irrigated with Saline -Foul Odor after Cleansing No -Anesthetic Used 4% Lidocaine Solution WC - Nurse 2 - General Ulcer CM Notes Start: 03/16/20 10:01 Freq: Status: Active Protocol: Activity Type Activity Date Activity User E-Sign Co-Sign Detail Recorded Client Recorded Date Recorded By Document 03/23/20 14:52 [email or web address] [id number] 03/23/20 14:56 03/23/20 14:52 Wound Center Nurse 2 [Procedure/Treatment] -Time 14:53 -Correct Patient Yes -Correct Side, Site, Position Yes -Correct Procedure Yes -Procedure Performed Yes -Type of Procedure Debridement -Clinical Debridement Subcutaneous -Tissue Removed Subcutaneous -Post Debridement (cm) - Length 2.4 -Post Debridement (cm) - Width 2.5 -Post Debridement (cm) - Depth 0.2 -Total Square (Post) (cm) 6.00 -Area of Debridement (cm) - Length 2.4 -Area of Debridement (cm) - Width 2.5 -Total Square (Area) (cm) 6.00 -Tunneling No -Undermining/Tunneling No -Circular Undermining No -Wound/Ulcer Outcome Not Healed -Ulcer Cleansing Rinsed/ Irrigated with Saline -Foul Odor after Cleansing No -Bioengineered Tissue No -Bleeding Controlled with Pressure -Offloading Yes -Type of Offloading Camwalker -Treatment Response Procedure Tolerated Well -Debridement - Subq, 1st 20sq cm Yes [See Physician Procedure note for Specifics] Pain Scale: 0-10 Numeric [Pain] -Is Patient Pain Free? Yes - Nurse 3 - General Ulcer D/C NN Start: 03/16/20 10:01 Freq: Status: Active Protocol: Activity Type Activity Date Activity User E-Sign Co-Sign Detail Recorded Client Recorded Date Recorded By Document 03/23/20 15:10 RB [id number] 03/23/20 15:11 RB 03/23/20 15:10 Wound Care Nurse 3 [Wound Dressing] #5- L PLANTAR cluster -Ulcer Cleansing Rinsed/ Irrigated with Saline -Primary Dressing Applied Aquacel AG 4x4 -Primary Dressing Covered/Secured Dry Gauze, with Secured with Tape -Other Covering abd -Aquacel AG 4x4 1 [Post Procedure Tolerated] -Treatment Response Procedure Tolerated Well Vital Signs [Blood Pressure] -Blood Pressure (90/60-120/80) 130/82 H -Blood Pressure Mean (mm Hg) 98 -Source Monitor -Position Semi-Fowlers -Blood Pressure Location Left Arm Pain Scale: 0-10 Numeric [Pain] -Is Patient Pain Free? Yes - Visit Discharge [Visit Discharge Information] -Discharge Condition Stable -Ambulatory Status Ambulatory -Transportation Private Auto -Medication Reconcilliation completed No & provided to patient/care provider -Clinical Summary of Care Provided Yes Musculoskeletal: No Tenderness to Palpation of Joints or Extremities, Muscle Wasting Neurological: - - Lack of normal epicritic sensation light touch is consistent with neuropathy status Psych/Mental Status: Normal Affect, Appropriate Debridement Note Post-Debridement Measurements/Treatment WC - Nurse 2 - General Ulcer CM Notes Start: 03/16/20 10:01 Freq: Status: Active Protocol: Activity Type Activity Date Activity User E-Sign Co-Sign Detail Recorded Client Recorded Date Recorded By Document 03/16/20 10:27 [id number] 03/16/20 10:29 JF Document 03/23/20 14:52 [id number] 03/23/20 14:56 JF 03/16/20 03/23/20 10:27 14:52 Wound Center Nurse 2 #5- L PLANTAR cluster -Time 10:27 14:53 -Correct Patient Yes Yes -Correct Side, Site, Position Yes Yes -Correct Procedure Yes Yes -Procedure Performed Yes Yes -Type of Procedure Debridement Debridement -Clinical Debridement Subcutaneous Subcutaneous -Tissue Removed Subcutaneous Subcutaneous -Post Debridement (cm) - Length 0.7 2.4 -Post Debridement (cm) - Width 0.8 2.5 -Post Debridement (cm) - Depth 0.2 0.2 -Total Square (Post) (cm) 0.56 6.00 -Area of Debridement (cm) - Length 0.7 2.4 -Area of Debridement (cm) - Width 0.8 2.5 -Total Square (Area) (cm) 0.56 6.00 -Tunneling No No -Undermining/Tunneling No No -Circular Undermining No No -Wound/Ulcer Outcome Not Healed Not Healed -Ulcer Cleansing Rinsed/ Rinsed/ Irrigated with Irrigated with Saline Saline -Foul Odor after Cleansing No No -Bioengineered Tissue No No -Bleeding Controlled with Pressure Pressure -Offloading Yes Yes -Type of Offloading Camwalker Camwalker -Treatment Response Procedure Procedure Tolerated Well Tolerated Well -Debridement - Subq, 1st 20sq cm Yes Yes Pain Scale: 0-10 Numeric Is Patient Pain Free? Yes WC - Nurse 3 - General Ulcer D/C NN Start: 03/16/20 10:01 Freq: Status: Active Protocol: Activity Type Activity Date Activity User E-Sign Co-Sign Detail Recorded Client Recorded Date Recorded By Document 03/16/20 10:43 SC [id number] 03/16/20 10:48 SC Document 03/23/20 15:10 RB [id number] 03/23/20 15:11 RB 03/16/20 03/23/20 10:43 15:10 Wound Care Nurse 3 #5- L PLANTAR cluster -Ulcer Cleansing Rinsed/ Irrigated with Saline -Primary Dressing Applied Aquacel Extra Aquacel AG 4x4 -Primary Dressing Covered/Secured with Dry Gauze, Secured with Tape -Other Covering abd -Aquacel Extra 1 -Aquacel AG 4x4 1 Treatment Response Procedure Tolerated Well Vital Signs Pulse Rate (60-100) 65 Pulse Location Monitor Blood Pressure (90/60-120/80) 140/70 H 130/82 H Blood Pressure Mean (mm Hg) 93 98 Source Monitor Monitor Position Sitting Semi-Fowlers Blood Pressure Location Right Arm Left Arm Pain Scale: 0-10 Numeric Is Patient Pain Free? Yes WC - Visit Discharge Discharge Condition Stable Stable Ambulatory Status Ambulatory Ambulatory Transportation Private Auto Medication Reconcilliation completed & No provided to patient/care provider Clinical Summary of Care Provided Yes Yes Wound debrided: plantar midfoot Laterality: Left Wound Grade/Stage: grade 1 Type of Debridement: Excisional debridement Anesthesia Used: 5% Lidocaine Gel Depth: in the subcutaneous layer Percentage of wound debrided: 100 Instrument Used: #15 blade Tissue Removed: fibrous, devitalized subcutaneous, biofilm, slough Severity: Fat Layer Exposed Amount of bleeding with debridement: Mild Bleeding Controlled with: Pressure Patient tolerated procedure well Assessment/Plan Active Problems (Last Updated 03/16/20 @ 20:[address] 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 Midfoot Charcot deformity, left. Diabetes with neuropathy. Malnutrition suspected. Other comorbidities Plan: I reviewed and discussed her case. Excisional subcutaneous debridement was performed as noted in the clinical panel. It appears her local signs of cellulitis have resolved and I do not recommend antibiotic refill.I recommend she washes her foot daily with soap and water and does the dressing with Dakin's wet-to-dry. An additional total contact cast will be considered again next week. She was reassured no signs of local infection or acute Charcot findings were seen. She was advised she needs to offload with a cam walker boot. As she has been told in the past it is never appropriate to walk around the house which is the Oralia brace in place without issue nor is it appropriate to wear the Oralia brace while she has an open wound. She demonstrates understanding today. To follow-up with the wound healing center in 1 week or call sooner if she has any questions or concerns or development of local or systemic infection. I answered all of her questions.
== END 2020-03-26 23:59 ==
LOC: WC 14:30
DX: E11.621 Type 2 diabetes mellitus with foot ulcer (principal); L97.522 Non-pressure chronic ulcer of other part of left foot with fat layer exposed; L03.116 Cellulitis of left lower limb; E11.42 Type 2 diabetes mellitus with diabetic polyneuropathy; E11.610 Type 2 diabetes mellitus with diabetic neuropathic arthropathy; I25.10 Atherosclerotic heart disease of native coronary artery without angina pectoris; Z79.02 Long term (current) use of antithrombotics/antiplatelets; Z79.82 Long term (current) use of aspirin; Z79.4 Long term (current) use of insulin; Z79.899 Other long term (current) drug therapy
CPT/HCPCS: 11042

== ENCOUNTER → 2020-04-05 15:19 | Outpatient (CLI) | payer MEDICARE, OTHER, SELFPAY ==
[2020-04-05 13:45] VITALS: BMI 32.9
== END ==
PROVIDERS: PCP Family Medicine; Visit Provider Nurse Practitioner Family
DX: E11.42 Type 2 diabetes mellitus with diabetic polyneuropathy (principal); L98.492 Non-pressure chronic ulcer of skin of other sites with fat layer exposed
CPT/HCPCS: 87070; 87075; 87205

== ENCOUNTER → 2020-04-07 09:39 | Outpatient (CLI) | payer MEDICARE, OTHER, SELFPAY ==
[2020-04-06 13:47] VITALS: BMI 32.9
[2020-04-07 12:56] LABS: Absolute Lymphocyte Count 1.91 X10^3/uL (0.83-4.51); Absolute Neutrophil Count 4.4 X10^3/uL (2.0-7.7); Basophil# 0.03 X10^3/uL; Basophil% 0.4 % (0-1); Eosinophil# 0.21 X10^3/uL; Hematocrit 34.4 % (37-47); Hemoglobin 10.5 g/dL (12.0-15.0); Lymphocyte # 1.91 X10^3/ul (4.0); Lymphocyte % 26.9 % (19-41); Mean Corp Hgb Conc 30.5 g/dL (32-36); Mean Corpuscular Hgb 23.9 pg (27.0-32.0); Mean Corpuscular Volume 78.2 fL (81-99); Mean Platelet Vol. 9.7 fl (6.2-12.0); Monocyte# 0.59 X10^3/uL; Monocyte% 8.3 % (0-10); NRBC Flagged by Analyzer 0 % (0-5); Neutrophil # 4.35 X10^3/uL (2.7-7.7); Neutrophil % 61.3 % (47-70); Platelet Count 246 K/mm3 (150-450); RBC Distribution Width CV 18.8 % (11.6-14.6); RBC Distribution Width SD 53.1 fl (35.1-43.9); White Blood Count 7.1 K/mm3 (4.4-11.0)
[2020-04-07 13:32] LABS: ALB/GLOB Ratio 0.9 RATIO (0.9-2.4); AST(SGOT) 13 U/L (15-37); Alanine Aminotransfer ALT/SGPT 26 U/L (13-56); Albumin, Serum 3.4 g/dL (3.2-5.0); Alkaline Phosphatase 80 U/L (45-117); Anion Gap 6 (5-15); BUN 46 mg/dL (7-18); BUN/Creat Ratio 27.4 RATIO (10-20); Calcium,Total 8.7 mg/dL (8.5-10.1); Chloride 109 mmol/L (98-107); Creatinine, Serum 1.68 mg/dL (0.55-1.02); EST Glomerular Filtration Rate 32 mL/min (>60); Est Glom Filt Rate - Afr Amer 38 mL/min (>60); Ferritin 11 ng/mL (8-252); Globulin 3.6 g/dL (2.2-4.2); Glucose 90 mg/dL (74-106); Sodium Level 139 mmol/L (136-145); Thyroid Stim Hormone (TSH) 1.69 uIU/mL (0.358-3.74)
== END ==
PROVIDERS: PCP Family Medicine; Referring Provider Family Medicine; Visit Provider Family Medicine
DX: D51.0 Vitamin B12 deficiency anemia due to intrinsic factor deficiency (principal); G47.00 Insomnia, unspecified
CPT/HCPCS: 36415; 80053; 82728; 84443; 85025

== ENCOUNTER 2020-04-13 13:45 | Outpatient (RCR) | payer MEDICARE, OTHER, SELFPAY ==
[2020-03-27 00:39] VITALS: BP 130/82; PULSE 82; RESP 20; TEMP 36.3; BMI 32.9
[2020-04-06 13:47] VITALS: BP 164/55; PULSE 71; RESP 18; TEMP 36.1; BMI 32.9
--- NOTE | 2020-04-06 22:29 | PN.PCM_ITS ---
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 She denies fever, chill, nausea, vomiting. She completed her antibiotics. She is using her cam walker boot and washing the foot daily with soap and water. Progress of Wound: Improving - Physical Exam Vital Signs Temp Pulse Resp BP 97 F L 71 18 164/55 H 04/06/20 13:47 04/06/20 13:47 04/06/20 13:47 04/06/20 13:47 General: Alert, Oriented x3, Cooperative, No apparent distress Extremities: No cyanosis, Capillary Refill Less than 3 Seconds, No Calf Tenderness, Diminished Peripheral Pulses, Edema - Mild Skin: Ulcer/ Wound - No purulence, erythema, string, odor, infection. Adjacent skin is hairless and atrophic Wound Measurements and Assessment WC - Nurse 1 - General Ulcer Measurement Start: 04/06/20 13:47 Freq: Status: Active Protocol: Activity Type Activity Date Activity User E-Sign Co-Sign Detail Recorded Client Recorded Date Recorded By Document 04/06/20 13:47 RB [id number] 04/06/20 13:49 RB 04/06/20 13:47 Wound Center Nurse 1 [Ulcer Assessment] #5- L PLANTAR cluster -Combined with other wound No -Current Size (cm) - Length 0.8 -Current Size (cm) - Width 0.8 -Current Size (cm) - Depth 0.5 -Total Square Cm 0.64 -Tunneling No -Undermining/Tunneling Yes -Undermining/Tunneling Starts (O' 7 clock) -Undermining/Tunneling Ends (O'clock) 10 -Maximum Distance (cm) 0.2 -Circular Undermining No -Exudate Amt Medium -Exudate Type Serosanguineous -Wound Margin Thickened -Granulation Amt Medium (34-66%) -Granulation Quality Shelley,Red -Slough/Fibrin Yes -Necrosis Amt Small (1-33%) -Necrotic Tissue Type Adherent Slough -Structure Exposed N/A -Texture (Shannon-wound Skin Appearance) Assessed,Callus -Moisture (Shannon-wound Skin Appearance Assessed ) -Color (Shannon-wound Skin Appearance) Assessed -Temperature (Shannon-wound Skin No Abnormality Appearance) (Pt Warm) -Tenderness on Palpation (Shannon-wound No Skin Appearance) -Ulcer Cleansing Wound Cleanser -Foul Odor after Cleansing No -Anesthetic Used 4% Lidocaine Solution AMINAH - Nurse 2 - General Ulcer CM Notes Start: 04/06/20 13:47 Freq: Status: Active Protocol: Activity Type Activity Date Activity User E-Sign Co-Sign Detail Recorded Client Recorded Date Recorded By Document 04/06/20 14:10 EULOGIO [id number] 04/06/20 14:11 EULOGIO 04/06/20 14:10 Wound Center Nurse 2 [Procedure/Treatment] -Time 14:11 -Correct Patient Yes -Correct Side, Site, Position Yes -Correct Procedure Yes -Procedure Performed Yes -Type of Procedure Debridement -Clinical Debridement Subcutaneous -Tissue Removed Subcutaneous -Post Debridement (cm) - Length 0.8 -Post Debridement (cm) - Width 0.8 -Post Debridement (cm) - Depth 0.2 -Total Square (Post) (cm) 0.64 -Area of Debridement (cm) - Length 0.8 -Area of Debridement (cm) - Width 0.8 -Total Square (Area) (cm) 0.64 -Tunneling No -Undermining/Tunneling No -Circular Undermining No -Wound/Ulcer Outcome Not Healed -Ulcer Cleansing Rinsed/ Irrigated with Saline -Foul Odor after Cleansing No -Bioengineered Tissue No -Bleeding Controlled with Pressure -Offloading Yes -Type of Offloading Total Contact Cast (TCC) - Left ($) -Treatment Response Procedure Tolerated Well -Debridement - Subq, 1st 20sq cm Yes [See Physician Procedure note for Specifics] Pain Scale: 0-10 Numeric [Pain] -Is Patient Pain Free? Yes AMINAH - Nurse 3 - General Ulcer D/C NN Start: 04/06/20 13:47 Freq: Status: Active Protocol: Activity Type Activity Date Activity User E-Sign Co-Sign Detail Recorded Client Recorded Date Recorded By Document 04/06/20 14:14 [facility] [id number] 04/06/20 14:15 [facility] 04/06/20 14:14 Wound Care Nurse 3 [Wound Dressing] #5- L PLANTAR cluster -Primary Dressing Applied Promogran Lotus Matter -Other Dressing chioma kwok rn -Primary Dressing Covered/Secured Other with -Other Covering tcc undercast -Promogran Lotus Matter 1 [Post Procedure Tolerated] -Treatment Response Procedure Tolerated Well Pain Scale: 0-10 Numeric [Pain] -Is Patient Pain Free? Yes WC - Visit Discharge [Visit Discharge Information] -Discharge Condition Stable -Ambulatory Status Ambulatory -Transportation Private Auto Musculoskeletal: Muscle Wasting, - - Rocker-bottom foot with medial prominence also noted Neurological: - - Lack of epicritic sensation light touch is consistent with neuropathy status Psych/Mental Status: Normal Affect, Appropriate Debridement Note Post-Debridement Measurements/Treatment WC - Nurse 2 - General Ulcer CM Notes Start: 04/06/20 13:47 Freq: Status: Active Protocol: Activity Type Activity Date Activity User E-Sign Co-Sign Detail Recorded Client Recorded Date Recorded By Document 04/06/20 14:10 [id number] 04/06/20 14:11 04/06/20 14:10 Wound Center Nurse 2 #5- L PLANTAR cluster -Time 14:11 -Correct Patient Yes -Correct Side, Site, Position Yes -Correct Procedure Yes -Procedure Performed Yes -Type of Procedure Debridement -Clinical Debridement Subcutaneous -Tissue Removed Subcutaneous -Post Debridement (cm) - Length 0.8 -Post Debridement (cm) - Width 0.8 -Post Debridement (cm) - Depth 0.2 -Total Square (Post) (cm) 0.64 -Area of Debridement (cm) - Length 0.8 -Area of Debridement (cm) - Width 0.8 -Total Square (Area) (cm) 0.64 -Tunneling No -Undermining/Tunneling No -Circular Undermining No -Wound/Ulcer Outcome Not Healed -Ulcer Cleansing Rinsed/ Irrigated with Saline -Foul Odor after Cleansing No -Bioengineered Tissue No -Bleeding Controlled with Pressure -Offloading Yes -Type of Offloading Total Contact Cast (TCC) - Left ($) -Treatment Response Procedure Tolerated Well -Debridement - Subq, 1st 20sq cm Yes Pain Scale: 0-10 Numeric Is Patient Pain Free? Yes WC - Nurse 3 - General Ulcer D/C NN Start: 04/06/20 13:47 Freq: Status: Active Protocol: Activity Type Activity Date Activity User E-Sign Co-Sign Detail Recorded Client Recorded Date Recorded By Document 04/06/20 14:14 [facility] [id number] 04/06/20 14:15 [facility] 04/06/20 14:14 Wound Care Nurse 3 #5- L PLANTAR cluster -Primary Dressing Applied Promogran Lotus Matter -Other Dressing chioma kwok rn -Primary Dressing Covered/Secured with Other -Other Covering tcc undercast -Promogran Lotus Matter 1 Treatment Response Procedure Tolerated Well Pain Scale: 0-10 Numeric Is Patient Pain Free? Yes WC - Visit Discharge Discharge Condition Stable Ambulatory Status Ambulatory Transportation Private Auto Wound debrided: plantar foot Laterality: Left Wound Grade/Stage: grade 1 Type of Debridement: Excisional debridement Anesthesia Used: 5% Lidocaine Gel Depth: in the subcutaneous layer Percentage of wound debrided: 100 Instrument Used: #15 blade Tissue Removed: fibrous, devitalized subcutaneous tissue, biofilm, slough Severity: Fat Layer Exposed Amount of bleeding with debridement: Mild Bleeding Controlled with: Pressure Patient tolerated procedure well Assessment/Plan Assessment: left foot plantar ulcer, britt grade 1, no infection. Midfoot Charcot deformity, left. Diabetes with neuropathy. Malnutrition suspected. Other comorbidities Plan: I reviewed and discussed her case. Excisional subcutaneous debridement was performed as noted in the clinical panel. It appears her local signs of cellulitis have resolved and I do not recommend antibiotic refill. An additional total contact cast today after verbal consent was obtained according standard protocol in a neutral position. This was properly padded. Lotus was applied prior to total contact cast application. To continue proper glycemic control. To follow-up with the wound healing center in 1 week or call sooner if she has any questions or concerns or development of local or systemic infection. I answered all of her questions.
[2020-04-13 13:48] VITALS: BP 150/50; RESP 18; TEMP 36.7; BMI 32.9
--- NOTE | 2020-04-13 19:58 | PCM.WC.PN ---
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 She denies fever, chill, nausea, vomiting. She completed her antibiotics. She kept her total contact cast intact last week however admits she walks around at home when she gets up at night without the protective total contact cast boot in place. She relates her life has rapidly declined in the past 2 years with her being unable to cook or care for herself. She saw a head refrigerating engineer a couple of years ago however a lot of the information is no longer pertinent because she is not the one cooking. She is amendable to follow-up again. She relates she also has trouble eating due to her prior gastric bypass she is concerned she is not absorbing all of her vitamins and been prescribed for her. She also drinks protein supplement shakes. Progress of Wound: Stable but deeper status noted - Physical Exam Vital Signs Temp Pulse Resp BP 98.0 F 71 18 150/50 H 04/13/20 13:48 04/06/20 13:47 04/13/20 13:48 04/13/20 13:48 General: Alert, Oriented x3, Cooperative, No apparent distress HEENT: Atraumatic Extremities: No cyanosis, Capillary Refill Less than 3 Seconds, No Calf Tenderness, Diminished Peripheral Pulses, Edema, - - Stable Charcot deformity noted with plantar medial deviation prominences Skin: Ulcer/ Wound - No purulence, erythema, streaking, odor, infection. No probe to bone or joint. Adjacent skin is hairless and atrophic Wound Measurements and Assessment WC - Nurse 1 - General Ulcer Measurement Start: 04/06/20 13:47 Freq: Status: Active Protocol: Activity Type Activity Date Activity User E-Sign Co-Sign Detail Recorded Client Recorded Date Recorded By Document 04/13/20 13:48 MT [id number] 04/13/20 14:00 MT 04/13/20 13:48 Wound Center Nurse 1 [Ulcer Assessment] #5- L PLANTAR cluster -Combined with other wound No -Current Size (cm) - Length 0.9 -Current Size (cm) - Width 0.9 -Current Size (cm) - Depth 0.3 -Total Square Cm 0.81 -Tunneling No -Undermining/Tunneling Yes -Undermining/Tunneling Starts (O' 6 clock) -Undermining/Tunneling Ends (O'clock) 9 -Maximum Distance (cm) 1.5 -Circular Undermining Yes -Change in Wound Grade/Stage No Query Text:If change please identify the Stage/Grade in the comment (ie. S2 G3) -Exudate Amt Small -Exudate Type Serosanguineous -Wound Margin Thickened -Granulation Amt Medium (34-66%) -Granulation Quality [place] -Slough/Fibrin Yes -Necrosis Amt Small (1-33%) -Necrotic Tissue Type Adherent Slough -Structure Exposed N/A -Texture (Shannon-wound Skin Appearance) Assessed,Callus -Moisture (Shannon-wound Skin Appearance Assessed ) -Color (Shannon-wound Skin Appearance) Assessed -Temperature (Shannon-wound Skin No Abnormality Appearance) (Pt Warm) -Tenderness on Palpation (Shannon-wound No Skin Appearance) -Ulcer Cleansing Wound Cleanser -Foul Odor after Cleansing No -Anesthetic Used 4% Lidocaine Solution WC - Nurse 2 - General Ulcer CM Notes Start: 04/06/20 13:47 Freq: Status: Active Protocol: Activity Type Activity Date Activity User E-Sign Co-Sign Detail Recorded Client Recorded Date Recorded By Document 04/13/20 15:15 MW [id number] 04/13/20 15:16 MW 04/13/20 15:15 Wound Center Nurse 2 [Procedure/Treatment] -Correct Patient Yes -Correct Side, Site, Position Yes -Correct Procedure Yes -Procedure Performed Yes -Type of Procedure Debridement -Clinical Debridement Subcutaneous -Tissue Removed Subcutaneous -Post Debridement (cm) - Length 0.9 -Post Debridement (cm) - Width 0.8 -Post Debridement (cm) - Depth 0.4 -Total Square (Post) (cm) 0.72 -Area of Debridement (cm) - Length 0.9 -Area of Debridement (cm) - Width 0.8 -Total Square (Area) (cm) 0.72 -Tunneling No -Undermining/Tunneling No -Circular Undermining No -Wound/Ulcer Outcome Not Healed -Ulcer Cleansing Rinsed/ Irrigated with Saline -Foul Odor after Cleansing No -Bioengineered Tissue No -Bleeding Controlled with Pressure -Offloading Yes -Type of Offloading Camwalker -Treatment Response Procedure Tolerated Well -Debridement - Subq, 1st 20sq cm Yes [See Physician Procedure note for Specifics] Pain Scale: 0-10 Numeric [Pain] -Is Patient Pain Free? Yes - Nurse 3 - General Ulcer D/C NN Start: 04/06/20 13:47 Freq: Status: Active Protocol: Activity Type Activity Date Activity User E-Sign Co-Sign Detail Recorded Client Recorded Date Recorded By Document 04/13/20 14:41 DL [id number] 04/13/20 14:42 DL 04/13/20 14:41 Wound Care Nurse 3 [Wound Dressing] #5- L PLANTAR cluster -Ulcer Cleansing Wound Cleanser -Foul Odor after Cleansing No -Primary Dressing Applied Aquacel AG 4x4 -Primary Dressing Covered/Secured Dry Gauze & with Roll Gauze, Secured with Tape -Aquacel AG 4x4 1 [Post Procedure Tolerated] -Treatment Response Procedure Tolerated Well Pain Scale: 0-10 Numeric [Pain] -Is Patient Pain Free? Yes - Visit Discharge [Visit Discharge Information] -Discharge Condition Stable -Ambulatory Status Ambulatory -Transportation Private Auto Musculoskeletal: No Tenderness to Palpation of Joints or Extremities, Muscle Wasting Neurological: - - Lack of normal epicritic sensation light touch is consistent with neuropathy status Psych/Mental Status: Normal Affect, Appropriate Debridement Note Post-Debridement Measurements/Treatment WC - Nurse 2 - General Ulcer CM Notes Start: 04/06/20 13:47 Freq: Status: Active Protocol: Activity Type Activity Date Activity User E-Sign Co-Sign Detail Recorded Client Recorded Date Recorded By Document 04/06/20 14:10 EULOGIO [id number] 04/06/20 14:11 JF Document 04/13/20 15:15 MW [id number] 04/13/20 15:16 MW 04/06/20 04/13/20 14:10 15:15 Wound Center Nurse 2 #5- L PLANTAR cluster -Time 14:11 -Correct Patient Yes Yes -Correct Side, Site, Position Yes Yes -Correct Procedure Yes Yes -Procedure Performed Yes Yes -Type of Procedure Debridement Debridement -Clinical Debridement Subcutaneous Subcutaneous -Tissue Removed Subcutaneous Subcutaneous -Post Debridement (cm) - Length 0.8 0.9 -Post Debridement (cm) - Width 0.8 0.8 -Post Debridement (cm) - Depth 0.2 0.4 -Total Square (Post) (cm) 0.64 0.72 -Area of Debridement (cm) - Length 0.8 0.9 -Area of Debridement (cm) - Width 0.8 0.8 -Total Square (Area) (cm) 0.64 0.72 -Tunneling No No -Undermining/Tunneling No No -Circular Undermining No No -Wound/Ulcer Outcome Not Healed Not Healed -Ulcer Cleansing Rinsed/ Rinsed/ Irrigated with Irrigated with Saline Saline -Foul Odor after Cleansing No No -Bioengineered Tissue No No -Bleeding Controlled with Pressure Pressure -Offloading Yes Yes -Type of Offloading Total Contact Camwalker Cast (TCC) - Left ($) -Treatment Response Procedure Procedure Tolerated Well Tolerated Well -Debridement - Subq, 1st 20sq cm Yes Yes Pain Scale: 0-10 Numeric Is Patient Pain Free? Yes Yes - Nurse 3 - General Ulcer D/C NN Start: 04/06/20 13:47 Freq: Status: Active Protocol: Activity Type Activity Date Activity User E-Sign Co-Sign Detail Recorded Client Recorded Date Recorded By Document 04/06/20 14:14 [facility] [id number] 04/06/20 14:15 [facility] Document 04/13/20 14:41 DL [id number] 04/13/20 14:42 DL 04/06/20 04/13/20 14:14 14:41 Wound Care Nurse 3 #5- L PLANTAR cluster -Ulcer Cleansing Wound Cleanser -Foul Odor after Cleansing No -Primary Dressing Applied Promogran Aquacel AG 4x4 Lotus Matter -Other Dressing chioma kwok rn -Primary Dressing Covered/Secured with Other Dry Gauze & Roll Gauze, Secured with Tape -Other Covering tcc undercast -Aquacel AG 4x4 1 -Promogran Lotus Matter 1 Treatment Response Procedure Procedure Tolerated Well Tolerated Well Pain Scale: 0-10 Numeric Is Patient Pain Free? Yes Yes - Visit Discharge Discharge Condition Stable Stable Ambulatory Status Ambulatory Ambulatory Transportation Private Auto Private Auto Wound debrided: plantar foot Laterality: Left Wound Grade/Stage: grade 1 Type of Debridement: Excisional debridement Anesthesia Used: 5% Lidocaine Gel Depth: in the subcutaneous layer Percentage of wound debrided: 100 Instrument Used: #15 blade Tissue Removed: fibrous, devitalized subcutaneous, biofilm, slough Severity: Fat Layer Exposed Amount of bleeding with debridement: Mild Bleeding Controlled with: Pressure Patient tolerated procedure well Assessment/Plan Active Problems (Last Reviewed 04/05/20 @ 20:[address] 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 Midfoot Charcot deformity, left. Diabetes with neuropathy. Malnutrition suspected. Other comorbidities Plan: I reviewed and discussed her case. Excisional subcutaneous debridement was performed as noted in the clinical panel. It appears her local signs of cellulitis have resolved and I do not recommend antibiotic refill. An additional total contact cast will be considered next week. In the meantime except I recommend she washes this daily with soap and water and change the dressing with Aquacel Ag. To continue proper glycemic control. A nutrition referral was recommended and provided today for evaluation and management of her diabetes taking into consideration her prior gastric bypass restrictions and also her lifestyle changes. She no longer cooks for herself and has been taking well. To follow-up with the wound healing center in 1 week or call sooner if she has any questions or concerns or development of local or systemic infection. I answered all of her questions.
== END 2020-04-25 23:59 ==
LOC: WC 13:45
PROVIDERS: PCP Family Medicine; Visit Provider Podiatrist
DX: E11.621 Type 2 diabetes mellitus with foot ulcer (principal); L97.522 Non-pressure chronic ulcer of other part of left foot with fat layer exposed; E11.610 Type 2 diabetes mellitus with diabetic neuropathic arthropathy; E11.40 Type 2 diabetes mellitus with diabetic neuropathy, unspecified; I25.10 Atherosclerotic heart disease of native coronary artery without angina pectoris; Z98.84 Bariatric surgery status
CPT/HCPCS: 11042; 29445

== ENCOUNTER 2020-04-15 11:22 | Inpatient (IN) | payer MEDICARE, OTHER, SELFPAY ==
[2020-04-15] VITALS (11 sets, daily range): BP systolic 91–135; BP diastolic 41–56; PULSE 70–83; RESP 16–18; TEMP 36.1–37.6; O2SAT 93–100; BMI 32.5
--- NOTE | 2020-04-15 11:06 | RAD_ITS ---
STUDY: X-RAY - LEFT FOOT CLINICAL: Female, 74 years old. LEFT FOOT I and amp;D. TECHNIQUE: 5 view(s) of the foot. COMPARISON: 04/02/2018 FINDINGS: 7 seconds of fluoroscopy of the left foot was utilized and operating room and 5 images suspended for interpretation.. RAD/Foot 2 Views IMPRESSION: Fluoroscopy during surgery. Electronically Signed: Tonny Khalil MD at 15:33 EST Tel , Service support ,
--- NOTE | 2020-04-15 11:42 | EKG12_ITS ---
Test Reason : PRE OP Blood Pressure : / mmHG Vent. Rate : 081 BPM Atrial Rate : 081 BPM P-R Int : 208 ms QRS Dur : 094 ms QT Int : 382 ms P-R-T Axes : 064 -25 071 degrees QTc Int : 443 ms Normal sinus rhythm Normal ECG When compared with ECG of 17-MAR-2020 05:45, No significant change was found Confirmed by HANNA ANAYA, HECTOR ([id number]), editor school photograph CAMERON CALLES ([id number]) on 04/19/2020 9:37:43 AM Referred By: Ivanna Magana Confirmed By:HECTOR FERREIRA MD
--- NOTE | 2020-04-15 11:48 | PCM.HP.STD ---
Problem List (1) Cellulitis of left lower limb Status: Acute (2) Type 2 diabetes mellitus without complication Status: Chronic (3) Charcot's joint of left foot Status: Chronic (4) 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 Comment: Recurrent History of Present Illness Date of Admission: 04/15/20 Chief Complaint: left foot infection The patient is a 74 year old F that has a chronic and recurrent left foot ulcer with prior Charcot deformity. She presented to clinic earlier today with sudden worsening of symptoms the past day and a half including worsening pain and now redness. She denies odor. Radiographs in the clinical setting demonstrated soft tissue emphysema consistent with a gas infection. She is also not feeling well including fatigue. She remains afebrile and her temperature is 97.1 today in clinic. Her multiple comorbidities are noted and she has in the past not mounted a full systemic response to infections. She was advised to to go for admission at [facility] with emergent incision and drainage of her left foot today. She was advised not to eat anything. It is noted she is currently on Plavix. Past Medical History Past Medical History (Chronic Problems): Chronic Problems (Last Reviewed 04/14/20 @ 14:31 by Claudine Trejo) Type 2 diabetes mellitus without complication (Chronic) Obesity (Chronic) Vitamin D deficiency (Chronic) Ulcer of right foot with fat layer exposed (Chronic) Peripheral arterial occlusive disease (Chronic) Charcot's joint of left foot (Chronic) Type 2 diabetes mellitus with diabetic polyneuropathy (Chronic) Ulcer of left foot with fat layer exposed (Chronic) Recurrent Ulcer of abdomen wall with fat layer exposed (Chronic) History of CVA (cerebrovascular accident) (Chronic) Stented coronary artery (Chronic 12/03/18) PTCA and YASIR to proximal and distal CX per Dr. Hatfield @ [facility]:(Promus Premier 4.0 X 12 mm L2 stent from distal left main into proximal LCX; Promus Premier RX 2.25 X 12 mm L1 stent in distal LCX) 12/03/2018:Triple vessel CAD of the LAD, LCX, RCA Successful PTCA/YASIR mid LCX with a 2.5 x 20 Promus Synergy stent; 85%-->0-%, no dissection. 12/24/18:FFR of RCA=0.97, negative, left for medical managemen History of coronary artery bypass graft (Chronic) CABG X 3 vessels [facility]:DANIEL to LAD, reverse SVG to dx and to 2nd OM per Dr. Borjas @ [facility] 09/09/2014 Atherosclerotic heart disease of [place] coronary artery without angina pectoris (Chronic) CABG X 3 vessels [facility]: DANIEL to LAD, reverse SVG to dx and to 2nd OM per Dr. Borjas @ [facility] 09/09/2014; PTCA/YASIR to Left main, LAD, and OM1 per Dr. Hatfield 12/21/2014; History of stroke (Chronic) Carotid artery disease (Chronic) Peripheral vascular disease (Chronic) Hyperlipidemia (Chronic) Coronary artery disease (Chronic) Hypothyroidism (Chronic) Iron deficiency anemia (Chronic) GERD (gastroesophageal reflux disease) (Chronic) Medical History: Medical History (Last Reviewed 04/14/20 @ 14:31 by Claudine Trejo) Type 2 diabetes mellitus without complication (Chronic) E11.9 Obesity (Chronic) E66.9 Vitamin D deficiency (Chronic) E55.9 Ulcer of right foot with fat layer exposed (Chronic) L97.512 Ulcer of right foot with necrosis of bone (Resolved) L97.514 Peripheral arterial occlusive disease (Chronic) I77.9 Charcot's joint of left foot (Chronic) M14.672 Type 2 diabetes mellitus with diabetic polyneuropathy (Chronic) E11.42 Ulcer of left foot with fat layer exposed (Chronic) L97.522 Recurrent Chest pain (Acute) R07.9 Ulcer of abdomen wall with fat layer exposed (Chronic) L98.492 History of CVA (cerebrovascular accident) (Chronic) Z86.73 Atherosclerotic heart disease of [place] coronary artery without angina pectoris (Chronic) I25.10 CABG X 3 vessels [facility]: DANIEL to LAD, reverse SVG to dx and to 2nd OM per Dr. Borjas @ [facility] 09/09/2014; PTCA/YASIR to Left main, LAD, and OM1 per Dr. Hatfield 12/21/2014; History of stroke (Chronic) Z86.73 Carotid artery disease (Chronic) I77.9 Peripheral vascular disease (Chronic) I73.9 Hyperlipidemia (Chronic) E78.5 Coronary artery disease (Chronic) I25.10 Hypothyroidism (Chronic) E03.9 Iron deficiency anemia (Chronic) D50.9 GERD (gastroesophageal reflux disease) (Chronic) K21.9 Carpal tunnel syndrome G56.00 Essential hypertension I10 Gout M10.9 History of blood clots Z86.718 History of blood transfusion Z92.89 IBS (irritable bowel syndrome) K58.9 Neuropathy G62.9 Osteoporosis M81.0 Allergies doxycycline Allergy (Severe, Verified 04/14/20 14:31) all over body hives and itching atorvastatin calcium [From Lipitor] Allergy (Verified 04/14/20 14:31) Unknown bupropion HCl [From Wellbutrin] Allergy (Verified 04/14/20 14:31) Unknown mannitol [From Reclast] Allergy (Verified 04/14/20 14:31) joint pain, unable to breathe, unable to walk propoxyphene napsylate [From Darvocet-N 100] Allergy (Verified 04/14/20 14:31) Unknown Quinolones Allergy (Verified 04/14/20 14:31) Unknown Tetanus Vaccines and Toxoid [Tetanus Vaccines & Toxoid] Allergy (Verified 04/14/20 14:31) Chest tightness tizanidine Allergy (Verified 04/14/20 14:31) Unknown zoledronic acid [From Reclast] Allergy (Verified 04/14/20 14:31) joint pain,unable to breathe, unaable to walk JOINT PAIN,UNABLE TO BREATHE,UNABLE TO WALK pravastatin Adverse Reaction (Severe, Verified 04/14/20 14:31) Myalgias gemfibrozil Adverse Reaction (Intermediate, Verified 04/14/20 14:31) Unknown NSAIDS (Non-Steroidal Anti-Inflamma Adverse Reaction (Verified 04/14/20 14:31) Other Home Medications: Ambulatory Orders Medication Instructions Recorded Levothyroxine Sodium [Levoxyl] 75 mcg PO QHS 03/10/17 Pravastatin Sodium 40 mg PO QHS 03/10/17 amlodipine 5 mg tablet 5 mg PO DAILY tab 05/05/18 glucagon (human recombinant) 1 mg 1 mg IM ONCE PRN 11/24/18 solution for injection Ergocalciferol [Vitamin D] 50,000 unit PO QWEEK 09/21/19 Esomeprazole Magnesium 20 mg PO DAILY 09/21/19 lisinopril 10 mg tablet 10 mg PO DAILY #90 tab 11/03/19 clopidogrel 75 mg tablet 75 mg PO DAILY #90 tab 11/23/19 duloxetine 30 mg capsule,delayed 30 mg PO QHS cap 01/11/20 release fexofenadine 180 mg tablet 180 mg PO DAILY tab 01/12/20 Carvedilol 25 mg PO BID 02/26/20 Hydroxyzine HCl 50 mg PO Q8H PRN PRN 02/26/20 Isosorbide Mononitrate [Isosorbide 60 mg PO .COMPLEX 02/26/20 Mononitrate ER] Nitroglycerin [Nitrolingual [place] 0.4 mg SL PRN PRN 02/26/20 ([facility])] Allopurinol 100 mg PO DAILY 03/17/20 Calcium Citrate 200 mg PO BID #0 03/17/20 L. Acidophilus/L.bulgaricus 1 tab PO DAILY 03/17/20 [Lactobacillus Tablet] insulin detemir U-100 100 unit/mL 36 unit SC BID ml 03/24/20 (3 mL) subcutaneous pen aspirin 81 mg tablet,delayed 81 mg PO DAILY 04/05/20 release cbd 1 dose PO 4X/DAY PRN 04/05/20 cyclobenzaprine 10 mg tablet 5 mg PO TID PRN tab 04/05/20 insulin aspart U-100 100 unit/mL 14 unit SC BID ml 04/05/20 (3 mL) subcutaneous pen ipratropium bromide 0.03 % nasal 2 spray INTRANASAL Q6H PRN ml 04/05/20 spray levomefolate Ca 3 mg-B6 35 1 cap PO Q6H cap 04/05/20 mg-meB12 2 mg-algal oil 90.314 mg capsule ezfpze-[id number]-[id number] 1 cap PO BID cap 04/05/20 24,000-76,000-120,000 unit capsule,delayed rel morphine 10 mg/5 mL oral solution See Rx Instructions PO Q6H PRN ml 04/05/20 quetiapine 100 mg tablet 300 mg PO QHS tab 04/05/20 Melatonin 5 mg PO 1700 04/15/20 Melatonin 10 mg PO QHS 04/15/20 Surgical History: Surgical History (Last Reviewed 04/14/20 @ 14:31 by Claudine Trejo) Stented coronary artery (Chronic) Onset Date: 12/03/18 Z95.5 PTCA and YASIR to proximal and distal CX per Dr. Hatfield @ [facility]:(Promus Premier 4.0 X 12 mm L2 stent from distal left main into proximal LCX; Promus Premier RX 2.25 X 12 mm L1 stent in distal LCX) 12/03/2018:Triple vessel CAD of the LAD, LCX, RCA Successful PTCA/YASIR mid LCX with a 2.5 x 20 Promus Synergy stent; 85%-->0-%, no dissection. 12/24/18:FFR of RCA=0.97, negative, left for medical managemen History of coronary artery bypass graft (Chronic) Z95.1 CABG X 3 vessels [facility]:ADNIEL to LAD, reverse SVG to dx and to 2nd OM per Dr. Borjas @ [facility] 09/09/2014 History of gastric bypass Z98.84 History of ventral hernia repair Z98.890, Z87.19 History of excision of lesion Z98.890, Z87.2 Surgical preparation supraumbilical area in previous scar with excision nonhealing ulcer and 16 cm complex secondary wound closure - 03/07/20 History of gastric bypass (Inactive) Z98.84 History of left heart catheterization (Inactive) Z98.890 CABG X 3 vessels [facility]:DANIEL to LAD, reverse SVG to dx and to 2nd OM per Dr. Borjas @ [facility] 09/09/2014; PTCA andDES to proximal and distal CX per Dr. Hatfield 12/21/2014; Hx of ventral hernia repair (Inactive) Z98.890, Z87.19 with mesh 20 years ago Surgical History: appendectomy, coronary bypass surgery, gastric bypass, tonsillectomy, - - Cardiac stent, , Carpal tunnel release, cardiac catheterization, carotid endarterectomy, right foot transmetatarsal amputation, exostectomy left foot Psychiatric History: Anxiety, Depression [employer] History: No pertinent [employer] history Lives: Spouse/ Significant Other Smoking Status: Never smoker - *Family History Paternal Family History: Family History (Last Reviewed 04/14/20 @ 14:31 by Claudine Trejo) Mother Cancer CVA (cerebral vascular accident) CAD (coronary artery disease) Father CAD (coronary artery disease) History of coronary artery bypass graft Sister CAD (coronary artery disease) Multiple sclerosis Other Anxiety Bleeding disorder Depression Diabetes Heart disease High cholesterol Hypertension History Items: No pertinent history Maternal Family History: Family History (Last Reviewed 04/14/20 @ 14:31 by Claudine Trejo) Mother Cancer CVA (cerebral vascular accident) CAD (coronary artery disease) Father CAD (coronary artery disease) History of coronary artery bypass graft Sister CAD (coronary artery disease) Multiple sclerosis Other Anxiety Bleeding disorder Depression Diabetes Heart disease High cholesterol Hypertension History Items: No pertinent history Review of Systems Constitutional: Reports: Weakness, Fatigue. Denies: Chills, Fever HEENT: Denies: Sore Throat Cardiovascular: Reports: Edema. Denies: Chest Pain, Claudication Respiratory: Denies: Shortness of Breath Gastrointestinal: Denies: Vomiting Musculoskeletal: Reports: Foot Pain Skin: Reports: Skin Changes, Wounds Neurological: Reports: Balance problems, Incoordination, Numbness, Tingling Hematologic/ Lymphatic: Reports: Easy Bruising, Easy Bleeding, Hx of blood clot VTE Information - Inpt Only VTE Present on Admission: No VTE Mechan Device Prophylaxis: SCD's VTE Pharm Prophylaxis ordered?: No Reason prophylaxis not ordered:: Procedure Not Indicated - will initiate post operative - Physical Exam Vitals/I&O's: Body Mass Index (BMI) 32.9 Finger Stick Blood Glucose 193 General: Alert, Oriented x3, Cooperative HEENT: Atraumatic, PERRLA, EOMI Oral: Moist Mucosa Extremities: No cyanosis, Capillary Refill Less than 3 Seconds, No Calf Tenderness, Diminished Peripheral Pulses, Edema Skin: Ulcer/ Wound - Plantar left foot ulcer with probing deep into the muscular layer with pain to palpation at the ulcer site and along the distal lateral margin of the foot. There is no purulence on expression however there is moderate increased serous drainage. There is erythema to the medial foot, - - Lymphangitic streak anterior leg. No bogginess or fluctuance on palpation however the periulcer soft tissue is indurated on palpation this is consistent with her infection presentation Musculoskeletal: No Tenderness to Palpation of Joints or Extremities, Muscle Wasting, - - Charcot rocker-bottom foot with medial prominence without gross laxity or increased calor. There is no crepitus on manipulation of the midfoot and this does not appear to be active from a Charcot standpoint. The compartments of her leg and foot remain soft to palpate, left. No skin tenting left Neurological: - - Lack of normal epicritic sensation is consistent with neuropathy status Psych/Mental Status: Normal Affect, Appropriate Assessment/Plan All Active Problems (Last Reviewed 04/14/20 @ 14:31 by Claudine Trejo) Cellulitis of left lower limb (Acute) Nonhealing surgical wound (Acute) Ulcer of right foot with necrosis of bone (Resolved) Chest pain (Acute) -Left foot infection with soft tissue emphysema on plain radiographs -Left chronic foot ulcer now with probing and tissue exposed -Uncontrolled diabetes with neuropathy -Non acute Charcot midfoot, left -Other comorbidities: Coronary artery disease, hypertension, GERD, history of blood clots and history of blood transfusion,, history of cerebrovascular accidents, hyperlipidemia, irritable bowel syndrome, history of iron deficiency anemia, obesity, osteoporosis, history of gastric bypass -Recent abdominal surgery is noted with delayed healing I reviewed and discussed her case in clinic. Plain radiographs 3 views (AP, lateral, oblique): No acute fracture or dislocation or disruption of prior Charcot site. There are soft tissue emphysema at the area of the ulcer and extensively into the plantar central lateral aspect of the foot consistent with a gas infection. She also has lymphangitic streaking up the leg anteriorly. I recommend emergent incision and drainage combined with admission to the hospital for IV antibiotics, medical management, infectious disease intervention. This case was reviewed with hospitalist on consult, Dr. Cheek and anesthesiologist. We discussed her preoperative medical comorbidities and this status is considered emergent. I recommend she undergoes a widespread incision and drainage with debridement of devitalized tissue as soon as possible. The procedure may be performed with MAC combined with a high ankle block. She understands this may be a staged procedure and she may require an amputation. The following diagnostic data was ordered: CBC, CMP, ESR, C-reactive protein, coags, EKG, and rapid Covid test. Consents will be signed. She is n.p.o. The preoperative indications, benefits, risk, complications and anticipated healing time and management were discussed. She understands risk and complications may include but are not limited to the following: Pain, swelling, scarring, need for further surgery, continued infection and delayed healing, loss of limb, function, life, blood clot, allergic reaction. This is medically necessary for limb and life salvage. Cultures were also obtained in clinic including aerobic, anaerobic, and MRSA PCR. Antibiotics will be initiated in a broad-spectrum manner. It is noted she is still is on Plavix at this time. I answered all of her questions as well as her 's questions. Ivanna Magana DPM, FACFAS [facility] [phone]
[2020-04-15 12:35] LABS: Bedside Glucose 394 mg/dL (70-110)
[2020-04-15 12:41] LABS: Absolute Lymphocyte Count 1.31 X10^3/uL (0.83-4.51); Absolute Neutrophil Count 8.8 X10^3/uL (2.0-7.7); Basophil# 0.02 X10^3/uL; Basophil% 0.2 % (0-1); Eosinophil# 0.04 X10^3/uL; Eosinophils% 0.4 % (0-5); Hematocrit 32.7 % (37-47); Hemoglobin 9.9 g/dL (12.0-15.0); Lymphocyte # 1.31 X10^3/ul (4.0); Lymphocyte % 11.6 % (19-41); Mean Corp Hgb Conc 30.3 g/dL (32-36); Mean Corpuscular Hgb 23.5 pg (27.0-32.0); Mean Corpuscular Volume 77.5 fL (81-99); Mean Platelet Vol. 9.4 fl (6.2-12.0); Monocyte# 1.07 X10^3/uL; Monocyte% 9.5 % (0-10); NRBC Flagged by Analyzer 0 % (0-5); Neutrophil # 8.81 X10^3/uL (2.7-7.7); Neutrophil % 77.9 % (47-70); Platelet Count 209 K/mm3 (150-450); RBC Distribution Width CV 17.5 % (11.6-14.6); Red Blood Count 4.22 M/mm3 (4.2-5.4); White Blood Count 11.3 K/mm3 (4.4-11.0)
[2020-04-15 12:47] LABS: International Normalized Ratio 1.2; Prothrombin Time (Protime)PT. 14.7 SECONDS (11.7-14.9)
[2020-04-15 12:49] LABS: Erythrocyte Sedimentation Rate 30 mm/hr (0-30)
[2020-04-15 12:50] LABS: ALB/GLOB Ratio 0.9 RATIO (0.9-2.4); AST(SGOT) 14 U/L (15-37); Alanine Aminotransfer ALT/SGPT 22 U/L (13-56); Albumin, Serum 3.3 g/dL (3.2-5.0); Alkaline Phosphatase 80 U/L (45-117); Anion Gap 5 (5-15); BUN 50 mg/dL (7-18); BUN/Creat Ratio 25.3 RATIO (10-20); Calcium,Total 8.4 mg/dL (8.5-10.1); Chloride 103 mmol/L (98-107); Creatinine, Serum 1.98 mg/dL (0.55-1.02); EST Glomerular Filtration Rate 26 mL/min (>60); Est Glom Filt Rate - Afr Amer 32 mL/min (>60); Estimated Creatinine Clearance 22.18 ml/min; Globulin 3.8 g/dL (2.2-4.2); Glucose 409 mg/dL (74-106); Potassium 5.1 mmol/L (3.5-5.1); Protein, Total 7.1 g/dL (6.4-8.2); Sodium Level 130 mmol/L (136-145)
[2020-04-15] MEDS: Insulin Lispro 100 UNIT/ML INSULN.PEN 7 UNIT SC (13:16)
[2020-04-15] MEDS: Lactated Ringers 1,000 ML 30 ML IV (13:41)
[2020-04-15] MEDS: Lidocaine 1% (20 ml mdv) 20 ML Vial (14:22)
[2020-04-15] MEDS: Bupivacaine Mpf 0.5% 30 ML VIAL (14:22)
--- NOTE | 2020-04-15 15:08 | OP.PCM_ITS ---
Problem List (1) Cellulitis of left lower limb Status: Acute (2) Type 2 diabetes mellitus without complication Status: Chronic (3) Charcot's joint of left foot Status: Chronic (4) 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 Comment: Recurrent (5) Infection of left foot Status: Acute Report of Operation Date of Procedure: 04/15/20 Pre-Operative Diagnosis: Infection/abscess left foot Post-Operative Diagnosis: Infection/abscess left foot Surgery/Procedure Performed:: Incision and drainage left foot with widespread debridement of nonviable tissue Description of Surgical Findings:: Purulence resolved after incision and drainage Hemostasis controlled with well-padded pneumatic mid leg tourniquet, left lower extremity, 250 mmHg Specimens and cultures (pre and post drainage and debridement) were sent and results are pending Intraoperative fluoroscopy used to confirm adequate resolution of the soft tissue emphysema and location of drainage. There were no additional acute f ractures or dislocation or disruption of her remote Charcot condition. No foreign bodies were identified. Complications: None The patient tolerated the procedure and anesthesia well. She was transported to the PACU with vital signs stable and vascular status intact to left lower extremity as compared to her preoperative status. She will be transferred to the medical surgical floor upon continued stability for medical management and IV antibiotics. Postoperative orders were entered electronically. central office supervisor: yes - Demetrius Garcia, PGY1 Special Medications: Preoperative injection (20 cc) of one-to-one mixture of 1% lidocaine plain 0.5% Marcaine plain administered in left ankle block fashion Specimen's removed: Predebridement culture: Aerobic, anaerobic, MRSA PCR. Post debridement culture: Aerobic, anaerobic, acid-fast, fungal, MRSA PCR Drains: iodoform packing Estimated Blood Loss (mL): 200 mL Description of Procedure: Indications: This 74-year-old female with the following comorbidities presented to clinic with new onset left foot infection: diabetes with neuropathy, hypertension, hyperlipidemia, coronary artery disease, prior CVA, history of blood clot, history of anemia, remote left foot Charcot collapse. 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 Over the past day, she has had progressive worsening of pain and now has redness and increased swelling to the foot. She is not able to bear weight. She was seen as an emergent add-on in clinic today in which clinical exam reveals new erythema and lymphangitic streaking up the anterior leg. The ulcer to the foot also probes deep. There was no odor noted however the area around the ulcer is indurated. Her vascular status is grossly intact. Preoperative radiographs demonstrate soft tissue emphysema consistent with infection to the plantar lateral distal midfoot and forefoot without foreign body, Charcot progression, fractures, or dislocations. Upon admission to hospital, she also demonstrated a low-grade fever and was advised to go for emergent incision and drainage to address this limb and life- threatening condition. She was seen preoperatively by Dr. Cheek. This is considered an emergency case and is time sensitive for limb salvage. It is noted she is on plavix. Preoperative labs demonstrate white blood cell count 11.3, ESR 30, elevated C-reactive protein. Her creatinine clearance is also reduced. Lactic acid is pending. The preoperative indications, benefits, risk, complications and anticipated healing time and management were discussed. She understands risk and complications may include but are not limited to the following: pain, swelling, scarring, need for further surgery, continued infection and delayed healing, loss of limb, function, life, blood clot, allergic reaction. This is medically necessary for limb and life salvage. A staged procedure such as a serial debridement or amputation will be considered pending her treatment response. She also understands she has entered a health care facility during covid 19 pandemic and there is an inherent risk. The benefits out way the risks at this time and her surgery is medically necessary in an urgent manner. She also understands she will be screened for covid 19 and all safety precautions to prevent viral spread are being taken at [facility] to lower the risk. The informed surgical consent and limb were signed. I answered all of her questions. Procedure in detail: The patient was taken to the operating room via cart and placed on the operating table in the supine position. Final verification of the patient, surgery, and limb designation was performed via the time out procedure. MAC anesthesia was initiated by the anesthesia team. I administered the preoperative local anesthetic as described proximal to the infected area. A well-padded pneumatic left mid leg tourniquet was placed. The left lower extremity was prepped and draped in the usual aseptic manner. Surgery began the following: Attention was first directed to the plantar ulcer of the left foot that measured approximately 1 cm x 1 cm with a depth of 1.2 cm. A [place] elevator was used to identify the involved infected planes which probed distally between the fourth and fifth metatarsals and also slightly proximal lateral and also slight medial to the ulcer site. 15 blade scalpel and hemostat was used to dissect out these planes in which less than 3 cc of purulence was expressed coming mainly from distal lateral forefoot. The drainage appeared to look like clear to hernandez serous drainage. There was no deep necrosis or compromise of the exposed muscles or tendons. Her Charcot midfoot was also stressed and there was no new laxity calor or crepitus noted in this area. Copious irrigation was performed and Versajet debridement was also performed in which the post debridement measurement including the incision and drainage measured approximately 10 cm in length by 1.5 cm in width with a depth of 2.1 cm at the deepest aspect to allow access to each of the exposed fascial compartments of the foot. Setting 8 was utilized. This was performed in an excisional manner to excise devitalized subuctaneoius tissue, fibrous tissue, biofilm, and slough. An additional incisional drainage site extending about 4 cm in length was made to the dorsal lateral foot adjacent to the fifth metatarsal aspect of the lateral mid and forefoot. This directly communicated with the plantar incision and debridement site. After irrigation was performed, there was no additional purulence, odor or necrosis. Intraoperative fluoroscopy was taken as the findings are as noted above. Post irrigation cultures were sent and the results are pending. The tourniquet was deflated and hemostasis was controlled with electrocauterization and direct pressure. It is noted she is on Plavix. Hemostasis was successfully controlled. Deep packing including iodoform gauze was applied to each of the aforementioned drainage sites. Betadine soaked gauze, abdominal pads, Kerlix, and Arjun wrap were applied in a compressive manner. After procedure: The patient tolerated the procedure and anesthesia well. She was transported to the PACU with vital signs stable and vascular status intact to the left lower extremity. She will be transferred to the medical surgical floor for continued IV antibiotics and medical management. Blood cultures are pending. She was advised to maintain a strict nonweightbearing status to the left foot. Ice and elevate for pain and inflammation management was advised. She was started on IV vancomycin and Zosyn after the cultures were obtained. I will continue to follow her closely in house. Therapy will also work with her while in house and she may need to go to a fdc facility. Medical management per hospitalist is appreciated. Infectious disease consult will also be performed. Orders were entered electronically. Ivanna Magana DPM, [facility] [place] Grafts/Implants Used: none - Complications none - Admit VTE Documentation VTE Present on Admission: No VTE Mechan Device Prophylaxis: SCD's VTE Pharm Prophylaxis ordered?: No Reason prophylaxis not ordered:: Treatment Not Indicated - will initiate after hemostasis control post op day 1
--- NOTE | 2020-04-15 15:11 | PCM.PROGNOTE ---
Patient Problems: Active and Suspected Problems (Last Reviewed 04/14/20 @ 14:31 by Claudine Trejo) Cellulitis of left lower limb (Acute) Subjective: Patient seen and examined preoperatively. Complains of significant left foot pain. Denies fever, chills. She denies chest pain. Had a stress echo June 2019 which was negative for ischemia. Okay to proceed with surgical intervention. - Physical Exam Vitals/I&O's: Vital Signs Temp Pulse Resp BP Pulse Ox 99.7 F H 80 16 128/48 H 94 04/15/20 12:12 04/15/20 12:12 04/15/20 12:12 04/15/20 12:12 04/15/20 12:12 Oxygen Delivery Method Room Air Weight: 190 lb Body Mass Index (BMI) 32.5 Finger Stick Blood Glucose 193 General: Alert, Oriented x3, Cooperative HEENT: Atraumatic, PERRLA, EOMI, Normocephalic Neck: Supple, No JVD, Negative Carotid Bruits Lungs: Clear to auscultation, Normal air movement Cardiovascular: Regular rate, No murmurs Abdomen: Bowel Sounds Present, Soft, Non Tender, Non-Distended, Obese Extremities: No clubbing, No cyanosis Skin: - - Left foot plantar ulceration with surrounding erythema Musculoskeletal: No Tenderness to Palpation of Joints or Extremities Neurological: Cranial nerves II-XII grossly intact, Neuro grossly intact Psych/Mental Status: Normal Affect, Appropriate Microbiology Past 72 Hours 04/15/20 Unknown Mucosa - Nose SARS-CoV-2 Antigen (Rapid) - Final Laboratory Results 04/15/20 12:10: WBC 11.3 H, RBC 4.22, Hgb 9.9 L, Hct 32.7 L, MCV 77.5 L, MCH 23.5 L, MCHC 30.3 L, RDW Std Deviation 49.0 H, RDW Coeff of Marco 17.5 H, Plt Count 209, MPV 9.4, Immature Gran % (Auto) 0.400, Neut % (Auto) 77.9 H, Lymph % (Auto) 11.6 L, [place] % (Auto) 9.5, Eos % (Auto) 0.4, Baso % (Auto) 0.2, Absolute Neuts (auto) 8.8 H, Absolute Lymphs (auto) 1.31, Nucleated RBC % 0, ESR 30 04/15/20 12:10: Sodium 130 L, Potassium 5.1, Chloride 103, Carbon Dioxide 22.0, Anion Gap 5, BUN 50 H, Creatinine 1.98 H, Estim Creat Clear Calc 22.18, Est GFR (MDRD) Af Amer 32 L, Est GFR (MDRD) Non-Af 26 L, BUN/Creatinine Ratio 25.3 H, Glucose 409 H, Calcium 8.4 L, Total Bilirubin 0.30, AST 14 L, ALT 22, Alkaline Phosphatase 80, C-React Prot High Sens 43.30 H, Total Protein 7.1, Albumin 3.3, Globulin 3.8, Albumin/Globulin Ratio 0.9 04/15/20 12:10: PT 14.7, INR 1.2 04/15/20 12:26: POC Glucose 394 H 04/15/20 13:30: Lactic Acid 1.0 Current Medications Docusate Sodium (Docusate Sodium 100 Mg Capsule) 100 mg PO BID PRN PRN PRN Reason: Constipation Vancomycin IV Pharmacy to Dose (1 ea/ Sodium Chloride) 500 mls @ 250 mls/hr IV X1 PRN; Protocol PRN Reason: Rx to Dose Lactated Ringer's () 1,000 mls @ 30 mls/hr IV .[id number] SHAHBAZ Last Admin: 04/15/20 13:41 Dose: 30 mls/hr Documented by: Piperacillin Sod/Tazobactam (Sod 3.375 gm/ Sodium Chloride) 50 mls @ 12.5 mls/hr IV Q8 SHAHBAZ Ondansetron HCl (Ondansetron 4 Mg/2 Ml Vial) 4 mg IV Q8H PRN PRN PRN Reason: NAUSEA/VOMITING Medical Necessity - Tobacco Use Smoking Status: Never smoker Assessment/Plan All Active Problems (Last Reviewed 04/14/20 @ 14:31 by Claudine Trejo) Cellulitis of left lower limb (Acute) Nonhealing surgical wound (Acute) Ulcer of right foot with necrosis of bone (Resolved) Chest pain (Acute) 1. CAD with history of CABG and stents- Prior heart cath November 2018 which demonstrated mid RCA lesion 65% stenosis, FFR was done with no PCI. Cardiology consulted. Stress echo June 2019 - for ischemia. Continue medical management including aspirin, carvedilol, statin, lisinopril, isosorbide. Follows with Dr. Perez. 2. Recurrent nonhealing left foot ulcer with prior Charcot deformity-podiatry primary. 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 On IV vancomycin and IV Zosyn. To undergo surgery per podiatry. Follow cultures. Wound RN consult. 3. Chronic kidney disease stage III-at baseline, trend BMP. 4. Type 2 diabetes mellitus- Continue home insulin regimen. 5. Hypertension-stable, continue Norvasc, Coreg, nitrate. 6. GERD-continue PPI. 7. Hypothyroidism-continue Synthroid. 8. PVD-continue Plavix, statin. 9. Chronic left foot ulceration-wound RN consult. Continue outpatient follow-up with wound center. 10. Chronic microcytic anemia-stable, trend CBC. DVT prophylaxis-SCDs, initiate pharmacologic prophylaxis when ok per podiatry This patient was seen by CLIFFORD Grayson under the supervision of Dr. Cheek.
[2020-04-15 16:35] LABS: M R Staph aureus DNA By PCR Negative (Negative)
[2020-04-15 16:36] LABS: Probe Check PASS; Specimen Processing Control PASS; Staph aureus DNA By PCR NEGATIVE (Negative)
[2020-04-15 17:20] LABS: Bedside Glucose 290 mg/dL (70-110)
[2020-04-15] MEDS: Insulin Lispro 100 UNIT/ML INSULN.PEN SC ×2 (17:54→20:53)
[2020-04-15] MEDS: Morphine 2 MG/ML Syringe IV (19:42)
[2020-04-15 19:45] LABS: M R Staph aureus DNA By PCR Negative (Negative); Probe Check PASS; Specimen Processing Control PASS; Staph aureus DNA By PCR NEGATIVE (Negative)
--- NOTE | 2020-04-15 20:58 | PCM.RX.CS ---
Consult Pharmacy has been consulted to manage selected antiobiotic: Vancomycin Type of Consult: New start Suspected Infection: Skin/Soft tissue Labs: Sodium 130 mmol/L (136-145) L 04/15/20 12:10 Potassium 5.1 mmol/L (3.5-5.1) 04/15/20 12:10 Chloride 103 mmol/L (98-107) 04/15/20 12:10 Carbon Dioxide 22.0 mmol/L (21.0-32.0) 04/15/20 12:10 Anion Gap 5 (5-15) 04/15/20 12:10 BUN 50 mg/dL (7-18) H 04/15/20 12:10 Creatinine 1.98 mg/dL (0.55-1.02) H 04/15/20 12:10 Est GFR (MDRD) Af Amer 32 mL/min (>60) L 04/15/20 12:10 Est GFR (MDRD) Non-Af 26 mL/min (>60) L 04/15/20 12:10 BUN/Creatinine Ratio 25.3 RATIO (10-20) H 04/15/20 12:10 Glucose 409 mg/dL (74-106) H 04/15/20 12:10 Microbiology: Microbiology 04/15/20 Unknown Mucosa - Nose SARS-CoV-2 Antigen (Rapid) - Final Weight used for dosin kg Estimated Creatinine Clearance: 22ml/min Goal Trough: 10-15 mcg/mL Pharmacy Plan for Drug Dosing: NEW START IV VANCOMYCIN Consulting Physician: [place] Indication: Left Foot Abcess Goal Trough: 10-15 SrCr: 1.98 (04/15/20) CrCl: 22.18 (04/15/20) Comments: pt received a 1250mg x1 dose in the OR on 04/15/20 at 1459 Vancomcyin Dose: 1500mg q48h starting 04/17/20 at 1100 Pending Level: 04/19 @ 1030 Pharmacy Service will continue to monitor and adjust dosing as required. Follow-Up Labs: Trough Vancomycin - 04/19/20 @ 1030
[2020-04-15 21:01] LABS: Bedside Glucose 367 mg/dL (70-110)
[2020-04-15] MEDS: Morphine 4 MG/ML Syringe IV (21:59)
[2020-04-15] MEDS: MELATONIN 10 MG TABLET PO (22:01)
[2020-04-15] MEDS: Acetaminophen 325 MG Tablet 650 MG PO (22:01)
[2020-04-15] MEDS: hydrOXYzine PAM 25 MG Capsule 50 MG PO (23:33)
[2020-04-16] MEDS: QUEtiapine 100 MG Tablet 300 MG PO ×2 (00:04→22:20)
[2020-04-16 00:35] VITALS: BP 132/45; PULSE 80; RESP 18; TEMP 36.9; O2SAT 99
[2020-04-16 05:00] VITALS: BP 141/38; PULSE 93; RESP 18; TEMP 36.3; O2SAT 97
[2020-04-16] MEDS: Morphine 4 MG/ML Syringe IV ×2 (05:23→09:03)
[2020-04-16] MEDS: Insulin Lispro 100 UNIT/ML INSULN.PEN SC ×4 (06:49→22:20)
[2020-04-16 06:55] LABS: Bedside Glucose 198 mg/dL (70-110)
--- NOTE | 2020-04-16 08:43 | PN_ITS ---
Patient Problems: Active and Suspected Problems (Last Reviewed 04/14/20 @ 14:31 by Claudine Trejo) Cellulitis of left lower limb (Acute) Infection of left foot (Acute) Subjective: This 74-year-old female was seen this morning postoperative day #1 left foot incision and drainage with widespread debridement. She denies fever, chill, nausea, vomiting. She relates her foot is a little bit less painful compared to preoperative and she is starting to feel better. She denies chest pain, shortness of breath, calf pain. - Physical Exam Vitals/I&O's: Vital Signs Temp Pulse Resp BP Pulse Ox 97.3 F L 93 18 141/38 H 97 04/16/20 05:00 04/16/20 05:00 04/16/20 05:00 04/16/20 05:00 04/16/20 05:00 Oxygen Flow Rate (L/min) 3 Oxygen Delivery Method Room Air Weight: 86.183 kg Body Mass Index (BMI) 32.5 Finger Stick Blood Glucose 193 Intake and Output for Last 24 Hours 04/14/20 04/15/20 04/16/20 23:59 23:59 23:59 Intake Total 459.0 / 459.0 Balance 459.0 / 459.0 General: Alert, Oriented x3, Cooperative HEENT: Atraumatic Extremities: No cyanosis, Capillary Refill Less than 3 Seconds, No Calf Tenderness - Negative Claudio and Elizondo sign bilateral, Diminished Peripheral Pulses, Edema - Decreased, - - Unchanged Charcot foot left Skin: Incision - Plantar foot incision and dorsal lateral foot incision have hematogenous soaked dressings only. There is no additional purulence, odor or streaking noted today. The erythema to the anterior ankle extending into the leg and also the medial foot have resolved and are significantly dec, respectively, - - Her skin is hairless and atrophic. There is no bogginess or fluctuance on palpation. There is no deep necrosis noted. Musculoskeletal: No Tenderness to Palpation of Joints or Extremities, Muscle Wasting, Tenderness - Tenderness on palpation to surgical site Neurological: - - Lack of epicritic sensation light touch is consistent with neuropathy status Psych/Mental Status: Normal Affect, Appropriate Microbiology Past 72 Hours 04/15/20 Unknown Mucosa - Nose SARS-CoV-2 Antigen (Rapid) - Final Laboratory Results 04/15/20 10:00: S.aureus Protein A PCR NEGATIVE, MRSA (PCR) Negative 04/15/20 12:10: WBC 11.3 H, RBC 4.22, Hgb 9.9 L, Hct 32.7 L, MCV 77.5 L, MCH 23.5 L, MCHC 30.3 L, RDW Std Deviation 49.0 H, RDW Coeff of Marco 17.5 H, Plt Count 209, MPV 9.4, Immature Gran % (Auto) 0.400, Neut % (Auto) 77.9 H, Lymph % (Auto) 11.6 L, [place] % (Auto) 9.5, Eos % (Auto) 0.4, Baso % (Auto) 0.2, Absolute Neuts (auto) 8.8 H, Absolute Lymphs (auto) 1.31, Nucleated RBC % 0, ESR 30 04/15/20 12:10: Sodium 130 L, Potassium 5.1, Chloride 103, Carbon Dioxide 22.0, Anion Gap 5, BUN 50 H, Creatinine 1.98 H, Estim Creat Clear Calc 22.18, Est GFR (MDRD) Af Amer 32 L, Est GFR (MDRD) Non-Af 26 L, BUN/Creatinine Ratio 25.3 H, Glucose 409 H, Calcium 8.4 L, Total Bilirubin 0.30, AST 14 L, ALT 22, Alkaline Phosphatase 80, C-React Prot High Sens 43.30 H, Total Protein 7.1, Albumin 3.3, Globulin 3.8, Albumin/Globulin Ratio 0.9 04/15/20 12:10: PT 14.7, INR 1.2 04/15/20 12:26: POC Glucose 394 H 04/15/20 13:30: Lactic Acid 1.0 04/15/20 15:16: S.aureus Protein A PCR NEGATIVE, MRSA (PCR) Negative 04/15/20 17:09: POC Glucose 290 H 04/15/20 20:43: POC Glucose 367 H 04/16/20 06:48: POC Glucose 198 H Current Medications Acetaminophen (Acetaminophen 325 Mg Tablet) 650 mg PO Q6H PRN PRN PRN Reason: Pain Score 1-10 Last Admin: 04/15/20 22:01 Dose: 650 mg Documented by: Dextrose (Dextrose 50%-Water 25 Gm/50 Ml Disp.Syrin) 0 gm IV X1 PRN; Protocol PRN Reason: Hypoglycemia Docusate Sodium (Docusate Sodium 100 Mg Capsule) 100 mg PO BID PRN PRN PRN Reason: Constipation Glucagon (Glucagon 1 Mg/Ml Syringe) 1 mg IM .X1 PRN PRN Reason: Hypoglycemia Hydroxyzine Pamoate (Hydroxyzine [place] 25 Mg Capsule) 50 mg PO Q8H PRN PRN PRN Reason: Anxiety/allergies Last Admin: 04/15/20 23:33 Dose: 50 mg Documented by: Vancomycin IV Pharmacy to Dose (1 ea/ Sodium Chloride) 500 mls @ 250 mls/hr IV X1 PRN; Protocol PRN Reason: Rx to Dose Lactated Ringer's () 1,000 mls @ 30 mls/hr IV .[id number] [id number] Last Infusion: 04/15/20 17:46 Dose: Infused Documented by: Sodium Chloride () 250 mls @ 15 mls/hr IV .[id number] PRN PRN Reason: Saline Flush Last Infusion: 04/15/20 19:00 Dose: 0 mls/hr Documented by: Sodium Chloride () 250 mls @ 15 mls/hr IV .[id number] PRN PRN Reason: Additional IVPB Infusion Piperacillin Sod/Tazobactam (Sod 3.375 gm/ Sodium Chloride) 50 mls @ 12.5 mls/hr IV Q8 SHAHBAZ Last Admin: 04/16/20 05:28 Dose: 12.5 mls/hr Documented by: Vancomycin HCl 1,500 mg/ (Sodium Chloride) 530 mls @ 250 mls/hr IV Q48H SHAHBAZ Insulin Human Lispro (Insulin Lispro 100 Unit/Ml Insuln.Pen) 0 unit SC ACHS [facility]; Protocol Last Admin: 04/16/20 06:49 Dose: 2 units Documented by: Melatonin (Melatonin 10 Mg Tablet) 10 mg PO QHS SHAHBAZ Last Admin: 04/15/20 22:01 Dose: 10 mg Documented by: Morphine Sulfate (Morphine 4 Mg/Ml Syringe) 2 - 4 mg IV Q3H PRN PRN PRN Reason: Pain Score 6-10 Last Admin: 04/16/20 05:23 Dose: 4 mg Documented by: Morphine Sulfate (Morphine 2 Mg/Ml Syringe) 2 - 4 mg IV Q3H PRN PRN PRN Reason: Pain Score 6-10 Last Admin: 11/20/20 19:42 Dose: 2 mg Documented by: Ondansetron HCl (Ondansetron 4 Mg/2 Ml Vial) 4 mg IV Q8H PRN PRN PRN Reason: NAUSEA/VOMITING Quetiapine Fumarate (Quetiapine 100 Mg Tablet) 300 mg PO QHS [facility] Last Admin: 04/16/20 00:04 Dose: 300 mg Documented by: Sodium Chloride (0.9% Saline Lock 10 Ml Syringe) 10 - 40 ml IV UD PRN PRN Reason: SALINE FLUSH Trazodone HCl (Trazodone 50 Mg Tablet) 50 mg PO QHS [facility] Last Admin: 04/16/20 02:53 Dose: Not Given Documented by: Medical Necessity - Tobacco Use Smoking Status: Never smoker Assessment/Plan All Active Problems (Last Reviewed 04/14/20 @ 14:31 by Claudine Trejo) Cellulitis of left lower limb (Acute) Infection of left foot (Acute) Nonhealing surgical wound (Acute) Ulcer of right foot with necrosis of bone (Resolved) Chest pain (Acute) -Postoperative day #1 left foot incision and drainage with widespread debridement for treatment of infection -Uncontrolled diabetes with neuropathy -Non acute Charcot midfoot, left -acute kidney injury -Other comorbidities: Coronary artery disease, hypertension, GERD, history of blood clots and history of blood transfusion, history of cerebrovascular accidents, hyperlipidemia, irritable bowel syndrome, history of iron deficiency anemia, obesity, osteoporosis, history of gastric bypass, recent abdominal surgery is noted with delayed healing I reviewed and discussed her case in clinic. She underwent emergency incision and drainage yesterday afternoon. Her low-grade fever has resolved. Laboratory was unable to obtain a blood draw this morning the lab is going to send an additional nuclear worker technician to complete this task. Intraoperative postoperative x- rays were reviewed without acute injuries. Formal X-rays were ordered and are pending. Her packing was removed that was placed during surgery and there is no purulence. Clinically, she is demonstrating significant reduction of infection signs. Betadine soaked gauze were packed into the drainage sites with secondary dressings consisting of 4 x 4 gauze, abdominal pads, Kerlix, and Arjun wrap. To maintain a strict nonweightbearing status of the left lower extremity with the use of an assistive device. Physical and occupational therapy have been ordered. [facility] facility placement will be considered pending and she responds to physical therapy sessions and if she has adequate help at home. Case coordination consult has already been placed as well for discharge planning. To continue on renally dosed broad-spectrum antibiotics, IV vancomycin and Zosyn. She has a history of a penicillin allergy documented in outpatient clinical notes. This was reviewed yesterday and it was confirmed that she does not have a penicillin allergy and has tolerated it fine during previous hospital admissions. Additionally, her lab trends will be followed. All of her preoperative and intraoperative cultures are pending. Infectious disease consultation was placed for Saturday. IV fluids will be continued to address her acute kidney injury. Medical management per hospitalist service is greatly appreciated. This case was reviewed with nurse practitioner this morning, Kasandra. It is okay to resume her anticoagulation medication including aspirin and Plavix. Additional DVT prophylaxis per hospitalist service is appreciated. Ivanna Magana DPM, [facility] [phone]
[2020-04-16 09:00] VITALS: BP 118/44; PULSE 70; RESP 18; TEMP 37.2; O2SAT 98
--- NOTE | 2020-04-16 09:06 | PCM.PROGNOTE ---
Patient Problems: Active and Suspected Problems (Last Reviewed 04/14/20 @ 14:31 by Claudine Trejo) Cellulitis of left lower limb (Acute) Infection of left foot (Acute) Subjective: Patient seen and examined. Complains of back pain. Reports foot pain is currently controlled. Denies other symptoms or complaints. - Physical Exam Vitals/I&O's: Vital Signs Temp Pulse Resp BP Pulse Ox 97.3 F L 93 18 141/38 H 97 04/16/20 05:00 04/16/20 05:00 04/16/20 05:00 04/16/20 05:00 04/16/20 05:00 Oxygen Flow Rate (L/min) 3 Oxygen Delivery Method Room Air Weight: 190 lb Body Mass Index (BMI) 32.5 Finger Stick Blood Glucose 193 Intake and Output for Last 24 Hours 04/14/20 04/15/20 04/16/20 23:59 23:59 23:59 Intake Total 459.0 / 459.0 Balance 459.0 / 459.0 General: Alert, Oriented x3, Cooperative HEENT: Atraumatic, PERRLA, EOMI, Normocephalic Neck: Supple, No JVD, Negative Carotid Bruits Lungs: Clear to auscultation, Normal air movement Cardiovascular: Regular rate, No murmurs Abdomen: Bowel Sounds Present, Soft, Non Tender, Non-Distended, Obese Extremities: No clubbing, No cyanosis, No edema, Capillary Refill Less than 3 Seconds Skin: - - Left foot postop dressing intact Musculoskeletal: No Tenderness to Palpation of Joints or Extremities Neurological: Cranial nerves II-XII grossly intact, Neuro grossly intact Psych/Mental Status: Normal Affect, Appropriate Microbiology Past 72 Hours 04/15/20 Unknown Mucosa - Nose SARS-CoV-2 Antigen (Rapid) - Final Laboratory Results 04/15/20 10:00: S.aureus Protein A PCR NEGATIVE, MRSA (PCR) Negative 04/15/20 12:10: WBC 11.3 H, RBC 4.22, Hgb 9.9 L, Hct 32.7 L, MCV 77.5 L, MCH 23.5 L, MCHC 30.3 L, RDW Std Deviation 49.0 H, RDW Coeff of Marco 17.5 H, Plt Count 209, MPV 9.4, Immature Gran % (Auto) 0.400, Neut % (Auto) 77.9 H, Lymph % (Auto) 11.6 L, [place] % (Auto) 9.5, Eos % (Auto) 0.4, Baso % (Auto) 0.2, Absolute Neuts (auto) 8.8 H, Absolute Lymphs (auto) 1.31, Nucleated RBC % 0, ESR 30 04/15/20 12:10: Sodium 130 L, Potassium 5.1, Chloride 103, Carbon Dioxide 22.0, Anion Gap 5, BUN 50 H, Creatinine 1.98 H, Estim Creat Clear Calc 22.18, Est GFR (MDRD) Af Amer 32 L, Est GFR (MDRD) Non-Af 26 L, BUN/Creatinine Ratio 25.3 H, Glucose 409 H, Calcium 8.4 L, Total Bilirubin 0.30, AST 14 L, ALT 22, Alkaline Phosphatase 80, C-React Prot High Sens 43.30 H, Total Protein 7.1, Albumin 3.3, Globulin 3.8, Albumin/Globulin Ratio 0.9 04/15/20 12:10: PT 14.7, INR 1.2 04/15/20 12:26: POC Glucose 394 H 04/15/20 13:30: Lactic Acid 1.0 04/15/20 15:16: S.aureus Protein A PCR NEGATIVE, MRSA (PCR) Negative 04/15/20 17:09: POC Glucose 290 H 04/15/20 20:43: POC Glucose 367 H 04/16/20 06:48: POC Glucose 198 H Current Medications Acetaminophen (Acetaminophen 325 Mg Tablet) 650 mg PO Q6H PRN PRN PRN Reason: Pain Score 1-10 Last Admin: 04/15/20 22:01 Dose: 650 mg Documented by: Dextrose (Dextrose 50%-Water 25 Gm/50 Ml Disp.Syrin) 0 gm IV X1 PRN; Protocol PRN Reason: Hypoglycemia Docusate Sodium (Docusate Sodium 100 Mg Capsule) 100 mg PO BID PRN PRN PRN Reason: Constipation Glucagon (Glucagon 1 Mg/Ml Syringe) 1 mg IM .X1 PRN PRN Reason: Hypoglycemia Hydroxyzine Pamoate (Hydroxyzine [place] 25 Mg Capsule) 50 mg PO Q8H PRN PRN PRN Reason: Anxiety/allergies Last Admin: 04/15/20 23:33 Dose: 50 mg Documented by: Vancomycin IV Pharmacy to Dose (1 ea/ Sodium Chloride) 500 mls @ 250 mls/hr IV X1 PRN; Protocol PRN Reason: Rx to Dose Lactated Ringer's () 1,000 mls @ 30 mls/hr IV .[id number] [facility] Last Infusion: 04/15/20 17:46 Dose: Infused Documented by: Sodium Chloride () 250 mls @ 15 mls/hr IV .[id number] PRN PRN Reason: Saline Flush Last Infusion: 04/15/20 19:00 Dose: 0 mls/hr Documented by: Sodium Chloride () 250 mls @ 15 mls/hr IV .[id number] PRN PRN Reason: Additional IVPB Infusion Piperacillin Sod/Tazobactam (Sod 3.375 gm/ Sodium Chloride) 50 mls @ 12.5 mls/hr IV Q8 SHAHBAZ Last Admin: 04/16/20 05:28 Dose: 12.5 mls/hr Documented by: Vancomycin HCl 1,500 mg/ (Sodium Chloride) 530 mls @ 250 mls/hr IV Q48H [facility] Insulin Human Lispro (Insulin Lispro 100 Unit/Ml Insuln.Pen) 0 unit SC ACHS [facility]; Protocol Last Admin: 04/16/20 06:49 Dose: 2 units Documented by: Melatonin (Melatonin 10 Mg Tablet) 10 mg PO QHS [facility] Last Admin: 04/15/20 22:01 Dose: 10 mg Documented by: Morphine Sulfate (Morphine 4 Mg/Ml Syringe) 2 - 4 mg IV Q3H PRN PRN PRN Reason: Pain Score 6-10 Last Admin: 04/16/20 09:03 Dose: 4 mg Documented by: Morphine Sulfate (Morphine 2 Mg/Ml Syringe) 2 - 4 mg IV Q3H PRN PRN PRN Reason: Pain Score 6-10 Last Admin: 04/15/20 19:42 Dose: 2 mg Documented by: Ondansetron HCl (Ondansetron 4 Mg/2 Ml Vial) 4 mg IV Q8H PRN PRN PRN Reason: NAUSEA/VOMITING Quetiapine Fumarate (Quetiapine 100 Mg Tablet) 300 mg PO QHS [facility] Last Admin: 04/16/20 00:04 Dose: 300 mg Documented by: Sodium Chloride (0.9% Saline Lock 10 Ml Syringe) 10 - 40 ml IV UD PRN PRN Reason: SALINE FLUSH Trazodone HCl (Trazodone 50 Mg Tablet) 50 mg PO QHS [facility] Last Admin: 04/16/20 02:53 Dose: Not Given Documented by: Medical Necessity - Tobacco Use Smoking Status: Never smoker Assessment/Plan All Active Problems (Last Reviewed 04/14/20 @ 14:31 by Claudine Trejo) Cellulitis of left lower limb (Acute) Infection of left foot (Acute) Nonhealing surgical wound (Acute) Ulcer of right foot with necrosis of bone (Resolved) Chest pain (Acute) 1. CAD with history of CABG and stents- Prior heart cath November 2018 which demonstrated mid RCA lesion 65% stenosis, FFR was done with no PCI. Stress echo June 2019 negative for ischemia. Continue medical management including aspirin, Plavix, carvedilol, statin, isosorbide. Follows with Dr. Perez. Okay to resume aspirin, Plavix per podiatry. 2. Recurrent nonhealing left foot ulcer with prior Charcot deformity-podiatry primary. 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 On IV vancomycin and IV Zosyn. Patient underwent incision and drainage left foot with widespread debridement of nonviable tissue 04/15/2020. Cultures pending. Nonweightbearing left lower extremity. PT/OT. Likely will need SNF at discharge. ID consulted. 3. CARLOS on chronic kidney disease stage III-gentle IV fluids, trend BMP. 4. Type 2 diabetes mellitus- Continue home insulin regimen. Accu-Cheks with sliding scale insulin. Hemoglobin A1c January 2020 7.8%. 5. Hypertension-stable, continue Norvasc, Coreg, nitrate. Hold lisinopril. 6. GERD-continue PPI. 7. Hypothyroidism-continue Synthroid. 8. PVD-continue aspirin, Plavix, statin. 9. Chronic microcytic anemia-stable, trend CBC. DVT prophylaxis-SCDs, subcu heparin This patient was seen by Kasandra Perez NP-[place] under the supervision of Dr. Cheek.
[2020-04-16 09:43] LABS: Absolute Lymphocyte Count 1.42 X10^3/uL (0.83-4.51); Absolute Neutrophil Count 5.1 X10^3/uL (2.0-7.7); Basophil# 0.02 X10^3/uL; Basophil% 0.3 % (0-1); Eosinophils% 1.3 % (0-5); Hematocrit 30.9 % (37-47); Hemoglobin 9.1 g/dL (12.0-15.0); Lymphocyte # 1.42 X10^3/ul (4.0); Lymphocyte % 19.1 % (19-41); Mean Corp Hgb Conc 29.4 g/dL (32-36); Mean Corpuscular Hgb 23.5 pg (27.0-32.0); Mean Corpuscular Volume 79.6 fL (81-99); Mean Platelet Vol. 9.9 fl (6.2-12.0); Monocyte# 0.84 X10^3/uL; Monocyte% 11.3 % (0-10); NRBC Flagged by Analyzer 0 % (0-5); Neutrophil # 5.05 X10^3/uL (2.7-7.7); Neutrophil % 67.7 % (47-70); Platelet Count 163 K/mm3 (150-450); RBC Distribution Width CV 17.4 % (11.6-14.6); RBC Distribution Width SD 50.5 fl (35.1-43.9); Red Blood Count 3.88 M/mm3 (4.2-5.4); White Blood Count 7.5 K/mm3 (4.4-11.0)
[2020-04-16 10:00] LABS: Anion Gap 3 (5-15); BUN 39 mg/dL (7-18); BUN/Creat Ratio 20.3 RATIO (10-20); Calcium,Total 8.1 mg/dL (8.5-10.1); Chloride 106 mmol/L (98-107); Creatinine, Serum 1.92 mg/dL (0.55-1.02); EST Glomerular Filtration Rate 27 mL/min (>60); Est Glom Filt Rate - Afr Amer 33 mL/min (>60); Estimated Creatinine Clearance 22.87 ml/min; Glucose 216 mg/dL (74-106); Potassium 4.9 mmol/L (3.5-5.1); Sodium Level 133 mmol/L (136-145)
[2020-04-16] MEDS: Heparin Injection (Vial) 5,000 UNIT/ML VIAL 5000 UNIT SC ×2 (11:15→22:19)
[2020-04-16] MEDS: Isosorbide Mononitrate 60 MG Tablet PO (11:15)
[2020-04-16] MEDS: Clopidogrel Bisulfate 75 MG Tablet PO (11:15)
[2020-04-16] MEDS: Pantoprazole Sodium 20 MG Tablet PO (11:15)
[2020-04-16] MEDS: Carvedilol 25 MG Tablet PO ×2 (11:16→22:17)
[2020-04-16] MEDS: Allopurinol 100 MG Tablet PO ×2 (11:16)
[2020-04-16] MEDS: amLODIPine 5 MG Tablet PO (11:17)
[2020-04-16] MEDS: Loratadine 10 MG Tablet PO (11:18)
[2020-04-16] MEDS: 0.9% Normal Saline 1,000 ML 100 ML IV ×2 (11:23→15:32)
--- NOTE | 2020-04-16 11:25 | RAD_ITS ---
STUDY: X-RAY - LEFT FOOT CLINICAL: Female, 74 years old. Left foot infection. Surgery yesterday for cleanout foot wound. TECHNIQUE: 3 view(s) of the foot. COMPARISON: 04/02/2018 FINDINGS: Generalized osteopenia. Marked pes planus deformity with severe arthrosis of the midfoot compatible with Charcot changes. Arthrosis of the MTP and IP joints. Soft tissue swelling along the plantar surface of the foot with soft tissue gas. Focal ulceration at the tarsometatarsal joints. RAD/Foot min 3 Views IMPRESSION: Osteopenia with severe pes planus deformity and Charcot changes. Soft tissue swelling with soft tissue gas on the plantar surface of the foot. Focal ulceration on the plantar surface of the foot at the tarsometatarsal joints. No bony erosion to suggest osteomyelitis. Electronically Signed: Milton Menard MD at 11:55 EST , Service support ,
[2020-04-16 13:00] VITALS: RESP 18
[2020-04-16 14:06] LABS: Bedside Glucose 448 mg/dL (70-110)
--- NOTE | 2020-04-16 15:35 | CM.UR ---
GRICELDA REED assessment: Face to Face with patient for initial transition planning/care coordination assessment. RN BRIANNA introduced self and role at [facility], pt voices understanding and consents to assessment at this time. Pt is sitting up in chair in no distress at this time. Pt is A/Ox4 at this time and answers all questions appropriately at this time. Care providers, pharmacy, and demographics verified at this time. Presentation: Sudden worsening s/s of left foot wound. Admitting dx: Cellulitis LLL PCP: Alex Specialists: Dr. Massey, Dr. Magana, Dr. Matos Preferred Pharmacy: [facility] Insurance: [facility] Prescription Benefit: Yes Living Will/HPOA: Yes not on file. HPOA is Madison Barrera, [id number] LNOK: , [place] Living Arrangements: bilevel. No steps to enter. 3 steps from the family room up to the kitchen and bedrooms. States she is able to navigate the stairs. Transportation: DME: canes, walker, raised toilet seat, electric scooter and knee walker. States did get bathroom modified to help her get up and down on toilet. HHC/DME: been in TCU. Pt states no concerns with going home at time of discharge. CM to follow for any further discharge planning/needs. Advised pt to ask for CM if any further questions/concerns/needs arise, voices understanding. Pt Goal: Home Plan: Home Bailey Sanders RN, CCM.
[2020-04-16] MEDS: hydrOXYzine PAM 25 MG Capsule 50 MG PO (15:36)
[2020-04-16 16:26] LABS: Bedside Glucose 393 mg/dL (70-110)
[2020-04-16 16:37] VITALS: BP 114/53; PULSE 86; RESP 18; TEMP 37.1; O2SAT 98
[2020-04-16] MEDS: Calcium Carbonate 500 MG Tablet PO (16:52)
[2020-04-16 18:46] LABS: Bedside Glucose 425 mg/dL (70-110)
[2020-04-16 20:43] VITALS: BP 127/59; PULSE 80; RESP 18; TEMP 37.5; O2SAT 98
[2020-04-16] MEDS: Pravastatin 40 MG Tablet PO (22:17)
[2020-04-16] MEDS: DULoxetine Hcl 30 MG Capsule PO (22:17)
[2020-04-16] MEDS: Levothyroxine 75 MCG Tablet PO (22:17)
[2020-04-16] MEDS: MELATONIN 10 MG TABLET PO (22:18)
[2020-04-16] MEDS: Isosorbide Mononitrate 60 MG Tablet 120 MG PO (22:18)
[2020-04-16 22:36] LABS: Bedside Glucose 233 mg/dL (70-110)
[2020-04-17] MEDS: 0.9% Normal Saline 1,000 ML 100 ML IV (01:32)
[2020-04-17 03:00] VITALS: BP 132/62; PULSE 79; RESP 16; TEMP 36.8; O2SAT 93
[2020-04-17 06:36] LABS: Bedside Glucose 169 mg/dL (70-110)
[2020-04-17] MEDS: Docusate Sodium 100 MG Capsule PO (06:54)
[2020-04-17] MEDS: Insulin Lispro 100 UNIT/ML INSULN.PEN SC ×4 (06:55→21:39)
[2020-04-17 08:26] LABS: Hematocrit 25.2 % (37-47); Hemoglobin 7.6 g/dL (12.0-15.0); Mean Corp Hgb Conc 30.2 g/dL (32-36); Mean Corpuscular Hgb 23.8 pg (27.0-32.0); Mean Platelet Vol. 9.5 fl (6.2-12.0); Platelet Count 154 K/mm3 (150-450); RBC Distribution Width CV 17.5 % (11.6-14.6); RBC Distribution Width SD 50.1 fl (35.1-43.9); Red Blood Count 3.19 M/mm3 (4.2-5.4)
[2020-04-17 08:34] LABS: Anion Gap 8 (5-15); BUN 39 mg/dL (7-18); BUN/Creat Ratio 25.7 RATIO (10-20); Chloride 108 mmol/L (98-107); Creatinine, Serum 1.52 mg/dL (0.55-1.02); EST Glomerular Filtration Rate 36 mL/min (>60); Est Glom Filt Rate - Afr Amer 43 mL/min (>60); Estimated Creatinine Clearance 28.89 ml/min; Glucose 149 mg/dL (74-106); Potassium 4.7 mmol/L (3.5-5.1); Sodium Level 136 mmol/L (136-145)
[2020-04-17 09:00] VITALS: BP 118/54; PULSE 77; RESP 18; TEMP 36.9; O2SAT 95
[2020-04-17] MEDS: Loratadine 10 MG Tablet PO (09:11)
[2020-04-17] MEDS: Aspirin E.C. 81 MG Tablet PO (09:11)
[2020-04-17] MEDS: amLODIPine 5 MG Tablet PO (09:11)
[2020-04-17] MEDS: Calcium Carbonate 500 MG Tablet PO ×2 (09:11→16:57)
[2020-04-17] MEDS: Clopidogrel Bisulfate 75 MG Tablet PO (09:12)
[2020-04-17] MEDS: Pantoprazole Sodium 20 MG Tablet PO (09:12)
[2020-04-17] MEDS: Heparin Injection (Vial) 5,000 UNIT/ML VIAL 5000 UNIT SC (09:13)
[2020-04-17] MEDS: Isosorbide Mononitrate 60 MG Tablet PO (09:13)
[2020-04-17] MEDS: Carvedilol 25 MG Tablet PO ×2 (09:13→21:37)
--- NOTE | 2020-04-17 10:20 | PCM.PROGNOTE ---
Patient Problems: Active and Suspected Problems (Last Reviewed 04/16/20 @ 15:[address] Judson Massey MD) Cellulitis of left lower limb (Acute) Infection of left foot (Acute) Subjective: Patient seen and examined. Reports constipation. Denies pain currently. - Physical Exam Vitals/I&O's: Vital Signs Temp Pulse Resp BP Pulse Ox 98.2 F 79 16 132/62 H 93 04/17/20 03:00 04/17/20 03:00 04/17/20 03:00 04/17/20 03:00 04/17/20 03:00 Oxygen Flow Rate (L/min) 3 Oxygen Delivery Method Room Air Weight: 190 lb 0.016 oz Body Mass Index (BMI) 32.5 Finger Stick Blood Glucose 193 Intake and Output for Last 24 Hours 04/15/20 04/16/20 04/17/20 23:59 23:59 23:59 Intake Total 459.0 / 459.0 516.5 / 516.5 1050 / 1050 Balance 459.0 / 459.0 516.5 / 516.5 1050 / 1050 General: Alert, Oriented x3, Cooperative HEENT: Atraumatic, PERRLA, EOMI, Normocephalic Neck: Supple, No JVD, Negative Carotid Bruits Lungs: Clear to auscultation, Normal air movement Cardiovascular: Regular rate, No murmurs Abdomen: Bowel Sounds Present, Soft, Non Tender, Non-Distended, Obese Extremities: No clubbing, No cyanosis, No edema Skin: - - Left foot dressing intact Musculoskeletal: No Tenderness to Palpation of Joints or Extremities Neurological: Cranial nerves II-XII grossly intact, Neuro grossly intact Psych/Mental Status: Normal Affect, Appropriate Microbiology Past 72 Hours 04/15/20 15:16 Other - Left Foot Gram Stain - Final 04/15/20 15:16 Other - Left Foot Wound Culture - Preliminary Gram positive mitch 04/15/20 10:00 Wound Abcess - Left Foot Gram Stain - Final 04/15/20 10:00 Wound Abcess - Left Foot Wound Culture - Preliminary Mixed Gram Pos & Gram Neg Org 04/15/20 15:16 Other - Left Foot Gram Stain - Final 04/15/20 15:16 Other - Left Foot Wound Culture - Preliminary Alpha hemolytic organism GNR Poss Pseudomonas sp Coag Negative Staph 04/15/20 Unknown Mucosa - Nose SARS-CoV-2 Antigen (Rapid) - Final Laboratory Results 04/16/20 11:59: POC Glucose 425 H 04/16/20 12:36: POC Glucose 448 H 04/16/20 15:58: POC Glucose 393 H 04/16/20 22:15: POC Glucose 233 H 04/17/20 06:05: WBC Cancelled, Corrected WBC Cancelled, RBC Cancelled, Hgb Cancelled, Hct Cancelled, MCV Cancelled, MCH Cancelled, MCHC Cancelled, RDW Std Deviation Cancelled, RDW Coeff of Marco Cancelled, Plt Count Cancelled, MPV Cancelled, Diff Path Review Cancelled 04/17/20 06:05: Sodium 136, Potassium 4.7, Chloride 108 H, Carbon Dioxide 20.0 L, Anion Gap 8, BUN 39 H, Creatinine 1.52 H, Estim Creat Clear Calc 28.89, Est GFR (MDRD) Af Amer 43 L, Est GFR (MDRD) Non-Af 36 L, BUN/Creatinine Ratio 25.7 H, Glucose 149 H, Calcium 8.0 L 04/17/20 06:11: POC Glucose 169 H 04/17/20 08:10: WBC 5.0, RBC 3.19 L, Hgb 7.6 L, Hct 25.2 L, MCV 79.0 L, MCH 23.8 L, MCHC 30.2 L, RDW Std Deviation 50.1 H, RDW Coeff of Marco 17.5 H, Plt Count 154, MPV 9.5 Current Medications Acetaminophen (Acetaminophen 325 Mg Tablet) 650 mg PO Q6H PRN PRN PRN Reason: Pain Score 1-10 Last Admin: 04/15/20 22:01 Dose: 650 mg Documented by: Allopurinol (Allopurinol 100 Mg Tablet) 100 mg PO DAILY [facility] Last Admin: 04/16/20 11:16 Dose: 100 mg Documented by: Amlodipine Besylate (Amlodipine 5 Mg Tablet) 5 mg PO DAILY [facility] Last Admin: 04/17/20 09:11 Dose: 5 mg Documented by: Aspirin ([facility]in E.C. 81 Mg Tablet) [facility] Admin: 04/17/20 09:11 Dose: 81 mg Documented by: Calcium Carbonate (Calcium Carbonate 500 Mg Tablet) [facility] Last Admin: 11/22/20 09:11 Dose: 500 mg Documented by: Carvedilol (Carvedilol 25 Mg Tablet) 25 mg PO BID [facility] Last Admin: 04/17/20 09:13 Dose: 25 mg Documented by: Clopidogrel Bisulfate (Clopidogrel Bisulfate 75 Mg Tablet) 75 mg PO DAILY [facility] Last Admin: 04/17/20 09:12 Dose: 75 mg Documented by: Dextrose (Dextrose 50%-Water 25 Gm/50 Ml Disp.Syrin) 0 gm IV X1 PRN; Protocol PRN Reason: Hypoglycemia Docusate Sodium (Docusate Sodium 100 Mg Capsule) 100 mg PO BID PRN PRN PRN Reason: Constipation Last Admin: 04/17/20 06:54 Dose: 100 mg Documented by: Duloxetine HCl (Duloxetine Hcl 30 Mg Capsule) 30 mg PO QHS [facility] Last Admin: 04/16/20 22:17 Dose: 30 mg Documented by: Glucagon (Glucagon 1 Mg/Ml Syringe) 1 mg IM .X1 PRN PRN Reason: Hypoglycemia Heparin Sodium (Porcine) (Heparin Injection (Vial) 5,000 Unit/Ml Vial) 5,000 unit SC Q12 [facility] Last Admin: 04/17/20 09:13 Dose: 5,000 unit Documented by: Hydroxyzine Pamoate (Hydroxyzine [place] 25 Mg Capsule) 50 mg PO Q8H PRN PRN PRN Reason: Anxiety/allergies Last Admin: 04/16/20 15:36 Dose: 50 mg Documented by: Vancomycin IV Pharmacy to Dose (1 ea/ Sodium Chloride) 500 mls @ 250 mls/hr IV X1 PRN; Protocol PRN Reason: Rx to Dose Sodium Chloride () 250 mls @ 15 mls/hr IV .[id number] PRN PRN Reason: Additional IVPB Infusion Last Infusion: 04/16/20 15:40 Dose: 0 mls/hr Documented by: Piperacillin Sod/Tazobactam (Sod 3.375 gm/ Sodium Chloride) 50 mls @ 12.5 mls/hr IV Q8 [facility] Last Admin: 04/17/20 06:00 Dose: 12.5 mls/hr Documented by: Vancomycin HCl 1,500 mg/ (Sodium Chloride) 530 mls @ 250 mls/hr IV Q48H [facility] Sodium Chloride () 1,000 mls @ 100 mls/hr IV .Q10H [facility] Last Admin: 04/17/20 01:32 Dose: 100 mls/hr Documented by: Sodium Chloride () 250 mls @ 15 mls/hr IV .[id number] PRN PRN Reason: Saline Flush Sodium Chloride () 250 mls @ 15 mls/hr IV .[id number] PRN PRN Reason: Additional IVPB Infusion Insulin Glargine (Insulin Glargine 100 Units/Ml Pen) 36 units SC BID [facility] Last Admin: 04/17/20 09:12 Dose: 36 u Documented by: Insulin Human Lispro (Insulin Lispro 100 Unit/Ml Insuln.Pen) 0 unit SC ACHS [facility]; Protocol Last Admin: 04/17/20 06:55 Dose: 2 units Documented by: Isosorbide Mononitrate (Isosorbide Mononitrate 60 Mg Tablet) 60 mg PO DAILY [facility] Last Admin: 04/17/20 09:13 Dose: 60 mg Documented by: Isosorbide Mononitrate (Isosorbide Mononitrate 60 Mg Tablet) 120 mg PO QHS [facility] Last Admin: 04/16/20 22:18 Dose: 120 mg Documented by: Levothyroxine Sodium (Levothyroxine 75 Mcg Tablet) 75 mcg PO QHS [facility] Last Admin: 04/16/20 22:17 Dose: 75 mcg Documented by: Loratadine (Loratadine 10 Mg Tablet) 10 mg PO DAILY [facility] Last Admin: 04/17/20 09:11 Dose: 10 mg Documented by: Melatonin (Melatonin 10 Mg Tablet) 10 mg PO QHS [facility] Last Admin: 04/16/20 22:18 Dose: 10 mg Documented by: Morphine Sulfate (Morphine 2 Mg/Ml Syringe) 2 - 4 mg IV Q3H PRN PRN PRN Reason: Pain Score 6-10 Last Admin: 04/15/20 19:42 Dose: 2 mg Documented by: Ondansetron HCl (Ondansetron 4 Mg/2 Ml Vial) 4 mg IV Q8H PRN PRN PRN Reason: NAUSEA/VOMITING Pantoprazole Sodium (Pantoprazole Sodium 20 Mg Tablet) 20 mg PO DAILY [facility] Last Admin: 04/17/20 09:12 Dose: 20 mg Documented by: Pravastatin Sodium (Pravastatin 40 Mg Tablet) 40 mg PO QHS [facility] Last Admin: 04/16/20 22:17 Dose: 40 mg Documented by: Quetiapine Fumarate (Quetiapine 100 Mg Tablet) 300 mg PO QHS [facility] Last Admin: 04/16/20 22:20 Dose: 300 mg Documented by: Sodium Chloride (0.9% Saline Lock 10 Ml Syringe) 10 - 40 ml IV UD PRN PRN Reason: SALINE FLUSH Sodium Chloride (0.9% Saline Lock 10 Ml Syringe) 10 - 40 ml IV UD PRN PRN Reason: SALINE FLUSH Trazodone HCl (Trazodone 50 Mg Tablet) 50 mg PO QHS [facility] Last Admin: 04/16/20 23:19 Dose: Not Given Documented by: Medical Necessity - Tobacco Use Smoking Status: Never smoker Assessment/Plan All Active Problems (Last Reviewed 04/16/20 @ 15:[address] Judson Massey MD) Cellulitis of left lower limb (Acute) Infection of left foot (Acute) Nonhealing surgical wound (Acute) Ulcer of right foot with necrosis of bone (Resolved) Chest pain (Acute) 1. CAD with history of CABG and stents- Prior heart cath November 2018 which demonstrated mid RCA lesion 65% stenosis, FFR was done with no PCI. Stress echo June 2019 negative for ischemia. Continue medical management including aspirin, Plavix, carvedilol, statin, isosorbide. Follows with Dr. Perez. Joe to resume aspirin, Plavix per podiatry. 2. Recurrent nonhealing left foot ulcer with prior Charcot deformity-podiatry primary. 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 On IV vancomycin and IV Zosyn. Patient underwent incision and drainage left foot with widespread debridement of nonviable tissue 04/15/2020. Cultures preliminary growing multiple organisms. Nonweightbearing left lower extremity. PT/OT. Likely will need SNF at discharge. ID consulted. 3. CARLOS on chronic kidney disease stage III-improved with IV fluids. Trend BMP. 4. Type 2 diabetes mellitus- Continue home insulin regimen. Accu-Cheks with sliding scale insulin. Hemoglobin A1c January 2020 7.8%. 5. Hypertension-stable, continue Norvasc, Coreg, nitrate. Hold lisinopril. 6. GERD-continue PPI. 7. Hypothyroidism-continue Synthroid. 8. PVD-continue aspirin, Plavix, statin. 9. Acute blood loss anemia on chronic microcytic anemia-blood loss anemia as expected outcome related to #2/incision and drainage. Trend CBC. DVT prophylaxis-SCDs, subcu heparin This patient was seen by CLIFFORD Grayson under the supervision of Dr. Cheek.
--- NOTE | 2020-04-17 11:16 | PN_ITS ---
Patient Problems: Active and Suspected Problems (Last Reviewed 04/16/20 @ 15:[address] Judson Massey MD) Cellulitis of left lower limb (Acute) Infection of left foot (Acute) Subjective: Patient seen and examined bedside. She has complaints of constipation this morning, mag citrate given and patient was able to have a BM. She is much more comfortable now. Patient states foot pain is well controlled with medication. She denies N/F/V/C/CP/SOB. - Physical Exam Vitals/I&O's: Vital Signs Temp Pulse Resp BP Pulse Ox 98.2 F 79 16 132/62 H 93 04/17/20 03:00 04/17/20 03:00 04/17/20 03:00 04/17/20 03:00 04/17/20 03:00 Oxygen Flow Rate (L/min) 3 Oxygen Delivery Method Room Air Weight: 86.183 kg Body Mass Index (BMI) 32.5 Finger Stick Blood Glucose 193 Intake and Output for Last 24 Hours 04/15/20 04/16/20 04/17/20 23:59 23:59 23:59 Intake Total 459.0 / 459.0 516.5 / 516.5 1050 / 1050 Balance 459.0 / 459.0 516.5 / 516.5 1050 / 1050 General: Alert, Oriented x3 HEENT: Atraumatic Extremities: No clubbing, No cyanosis, Capillary Refill Less than 3 Seconds, No Calf Tenderness, Diminished Peripheral Pulses, Edema, Tenderness - left foot on direct palpation along surgical site, - - Her skin is hairless and atrophic. There is no bogginess or fluctuance on palpation. There is no deep necrosis noted. Skin: Incision - left dorsal lateral foot and plantar lateral foot incisions, mild hematoma noted within plantar wound which was evacuated with granular tissue underneath, no purulence, no malodor, mild macerated edges, mild periwound edema/erythema, serosanginous drainage, no streaking Musculoskeletal: Tenderness - left plantar foot, - - rocker bottom foot type on left, TMA right Neurological: - - decreased epicritic sensation consistent with neuropathy Psych/Mental Status: Normal Affect, Appropriate, Alert and oriented to time, place, person, mood and affect Microbiology Past 72 Hours 04/15/20 10:00 Wound Abcess - Left Foot Gram Stain - Final 04/15/20 10:00 Wound Abcess - Left Foot Wound Culture - Preliminary Alpha hemolytic organism GNR Poss Pseudomonas sp Gram positive organism 04/15/20 15:16 Other - Left Foot Gram Stain - Final 04/15/20 15:16 Other - Left Foot Wound Culture - Preliminary Mixed Culture 04/15/20 15:16 Other - Left Foot Gram Stain - Final 04/15/20 15:16 Other - Left Foot Wound Culture - Preliminary Alpha hemolytic organism GNR Poss Pseudomonas sp Coag Negative Staph 04/15/20 Unknown Mucosa - Nose SARS-CoV-2 Antigen (Rapid) - Final Laboratory Results 04/16/20 11:59: POC Glucose 425 H 04/16/20 12:36: POC Glucose 448 H 04/16/20 15:58: POC Glucose 393 H 04/16/20 22:15: POC Glucose 233 H 04/17/20 06:05: WBC Cancelled, Corrected WBC Cancelled, RBC Cancelled, Hgb Cancelled, Hct Cancelled, MCV Cancelled, MCH Cancelled, MCHC Cancelled, RDW Std Deviation Cancelled, RDW Coeff of Marco Cancelled, Plt Count Cancelled, MPV Cancelled, Diff Path Review Cancelled 04/17/20 06:05: Sodium 136, Potassium 4.7, Chloride 108 H, Carbon Dioxide 20.0 L , Anion Gap 8, BUN 39 H, Creatinine 1.52 H, Estim Creat Clear Calc 28.89, Est GFR (MDRD) Af Amer 43 L, Est GFR (MDRD) Non-Af 36 L, BUN/Creatinine Ratio 25.7 H , Glucose 149 H, Calcium 8.0 L 04/17/20 06:11: POC Glucose 169 H 04/17/20 08:10: WBC 5.0, RBC 3.19 L, Hgb 7.6 L, Hct 25.2 L, MCV 79.0 L, MCH 23.8 L, MCHC 30.2 L, RDW Std Deviation 50.1 H, RDW Coeff of Marco 17.5 H, Plt Count 154, MPV 9.5 Current Medications Acetaminophen (Acetaminophen 325 Mg Tablet) 650 mg PO Q6H PRN PRN PRN Reason: Pain Score 1-10 Last Admin: 04/15/20 22:01 Dose: 650 mg Documented by: Allopurinol (Allopurinol 100 Mg Tablet) 100 mg PO DAILY [facility] Last Admin: 04/16/20 11:16 Dose: 100 mg Documented by: Amlodipine Besylate (Amlodipine 5 Mg Tablet) 5 mg PO DAILY [facility] Last Admin: 04/17/20 09:11 Dose: 5 mg Documented by: Aspirin ([facility]in E.C. 81 Mg [facility]t) [facility] Admin: 04/17/20 09:11 Dose: 81 mg Documented by: Calcium Carbonate ([facility] 500 Mg [facility]t) [facility] Last Admin: 04/17/20 09:11 Dose: 500 mg Documented by: Carvedilol (Carvedilol 25 Mg Tablet) 25 mg PO BID [facility] Last Admin: 04/17/20 09:13 Dose: 25 mg Documented by: Clopidogrel Bisulfate (Clopidogrel Bisulfate 75 Mg Tablet) 75 mg PO DAILY [facility] Last Admin: 04/17/20 09:12 Dose: 75 mg Documented by: Dextrose (Dextrose 50%-Water 25 Gm/50 Ml Disp.Syrin) 0 gm IV X1 PRN; Protocol PRN Reason: Hypoglycemia Docusate Sodium (Docusate Sodium 100 Mg Capsule) 100 mg PO BID PRN PRN PRN Reason: Constipation Last Admin: 04/17/20 06:54 Dose: 100 mg Documented by: Duloxetine HCl (Duloxetine Hcl 30 Mg Capsule) 30 mg PO QHS [facility] Last Admin: 04/16/20 22:17 Dose: 30 mg Documented by: Glucagon (Glucagon 1 Mg/Ml Syringe) 1 mg IM .X1 PRN PRN Reason: Hypoglycemia Heparin Sodium (Porcine) (Heparin Injection (Vial) 5,000 Unit/Ml Vial) 5,000 unit SC Q12 [facility] Last Admin: 04/17/20 09:13 Dose: 5,000 unit Documented by: Hydroxyzine Pamoate (Hydroxyzine [place] 25 Mg Capsule) 50 mg PO Q8H PRN PRN PRN Reason: Anxiety/allergies Last Admin: 04/16/20 15:36 Dose: 50 mg Documented by: Vancomycin IV Pharmacy to Dose (1 ea/ Sodium Chloride) 500 mls @ 250 mls/hr IV X1 PRN; Protocol PRN Reason: Rx to Dose Sodium Chloride () 250 mls @ 15 mls/hr IV .[id number] PRN PRN Reason: Additional IVPB Infusion Last Infusion: 04/16/20 15:40 Dose: 0 mls/hr Documented by: Piperacillin Sod/Tazobactam (Sod 3.375 gm/ Sodium Chloride) 50 mls @ 12.5 mls/hr IV Q8 [facility] Last Admin: 04/17/20 06:00 Dose: 12.5 mls/hr Documented by: Vancomycin HCl 1,500 mg/ (Sodium Chloride) 530 mls @ 250 mls/hr IV Q48H [facility] Sodium Chloride () 250 mls @ 15 mls/hr IV .[id number] PRN PRN Reason: Saline Flush Sodium Chloride () 250 mls @ 15 mls/hr IV .[id number] PRN PRN Reason: Additional IVPB Infusion Insulin Glargine (Insulin Glargine 100 Units/Ml Pen) 36 units SC BID [facility] Last Admin: 04/17/20 09:12 Dose: 36 u Documented by: Insulin Human Lispro (Insulin Lispro 100 Unit/Ml Insuln.Pen) 0 unit SC ACHS [facility]; Protocol Last Admin: 04/17/20 06:55 Dose: 2 units Documented by: Isosorbide Mononitrate (Isosorbide Mononitrate 60 Mg Tablet) 60 mg PO DAILY [facility] Last Admin: 04/17/20 09:13 Dose: 60 mg Documented by: Isosorbide Mononitrate (Isosorbide Mononitrate 60 Mg Tablet) 120 mg PO QHS [facility] Last Admin: 04/16/20 22:18 Dose: 120 mg Documented by: Levothyroxine Sodium (Levothyroxine 75 Mcg Tablet) 75 mcg PO QHS [facility] Last Admin: 04/16/20 22:17 Dose: 75 mcg Documented by: Loratadine (Loratadine 10 Mg Tablet) 10 mg PO DAILY [facility] Last Admin: 04/17/20 09:11 Dose: 10 mg Documented by: Melatonin (Melatonin 10 Mg Tablet) 10 mg PO QHS [facility] Last Admin: 04/16/20 22:18 Dose: 10 mg Documented by: Morphine Sulfate (Morphine 2 Mg/Ml Syringe) 2 - 4 mg IV Q3H PRN PRN PRN Reason: Pain Score 6-10 Last Admin: 04/15/20 19:42 Dose: 2 mg Documented by: Ondansetron HCl (Ondansetron 4 Mg/2 Ml Vial) 4 mg IV Q8H PRN PRN PRN Reason: NAUSEA/VOMITING Pantoprazole Sodium (Pantoprazole Sodium 20 Mg Tablet) 20 mg PO DAILY [facility] Last Admin: 04/17/20 09:12 Dose: 20 mg Documented by: Pravastatin Sodium (Pravastatin 40 Mg Tablet) 40 mg PO QHS [facility] Last Admin: 04/16/20 22:17 Dose: 40 mg Documented by: Quetiapine Fumarate (Quetiapine 100 Mg Tablet) 300 mg PO QHS [facility] Last Admin: 04/16/20 22:20 Dose: 300 mg Documented by: Sodium Chloride (0.9% Saline Lock 10 Ml Syringe) 10 - 40 ml IV UD PRN PRN Reason: SALINE FLUSH Sodium Chloride (0.9% Saline Lock 10 Ml Syringe) 10 - 40 ml IV UD PRN PRN Reason: SALINE FLUSH Trazodone HCl (Trazodone 50 Mg Tablet) 50 mg PO QHS [facility] Last Admin: 04/16/20 23:19 Dose: Not Given Documented by: Medical Necessity - Tobacco Use Smoking Status: Never smoker Assessment/Plan All Active Problems (Last Reviewed 04/16/20 @ 15:[address] Judson Massey MD) Cellulitis of left lower limb (Acute) Infection of left foot (Acute) Nonhealing surgical wound (Acute) Ulcer of right foot with necrosis of bone (Resolved) Chest pain (Acute) -Postoperative day #2, surgery 04/15/[address] Magana left foot incision and drainage with widespread debridement for treatment of infection -Uncontrolled diabetes with neuropathy -Non acute Charcot midfoot, left -acute kidney injury -Other comorbidities: Coronary artery disease, hypertension, GERD, history of blood clots and history of blood transfusion, history of cerebrovascular accidents, hyperlipidemia, irritable bowel syndrome, history of iron deficiency anemia, obesity, osteoporosis, history of gastric bypass, recent abdominal surgery is noted with delayed healing Patient seen and examined bedside, foot pain is controlled Her low-grade fever has resolved. Blood cultures were able to be obtained last night after failed attempts x-rays were reviewed without acute injuries. Gas noted on report corresponds to surgical wound deficit. Do not believe there is any remaining active gas infection Continue wound care Her packing was removed that was placed during surgery and there is no purulenc e. Clinically, she is demonstrating significant reduction of infection signs. Wet to dry dressing covered by 4 x 4 gauze, Kerlix, and Arjun wrap applied. To maintain a strict nonweightbearing status of the left lower extremity with the use of an assistive device. Physical and occupational therapy have been ordered. [facility] facility placement will be considered pending and she responds to physical therapy sessions and if she has adequate help at home. Case coordination consult has already been placed as well for discharge planning. To continue on renally dosed broad-spectrum antibiotics, IV vancomycin and Zosyn. She has a history of a penicillin allergy documented in outpatient clinical notes. This was reviewed yesterday and it was confirmed that she does not have a penicillin allergy and has tolerated it fine during previous hospital admissions. Additionally, her lab trends will be followed. Leukocytosis resolved. Follow wound cultures. So far growing alpha hemolytic strept, GNR possibly PsAg, Coag Neg Staph, GPC possibly Enterococcus Follow blood cultures. Infectious disease consultation was placed for Saturday. IV fluids will be continued to address her acute kidney injury. It is okay to resume her anticoagulation medication including aspirin and Plavix. Additional DVT prophylaxis per hospitalist service is appreciated. Podiatry will continue to follow, please contact if any questions
[2020-04-17] MEDS: Magnesium Citrate 300 ML 150 ML PO (11:35)
[2020-04-17 11:45] LABS: Bedside Glucose 231 mg/dL (70-110)
[2020-04-17 16:30] VITALS: BP 120/51; PULSE 78; RESP 18; TEMP 36.7; O2SAT 95
[2020-04-17 16:56] LABS: Bedside Glucose 222 mg/dL (70-110)
[2020-04-17] MEDS: hydrOXYzine PAM 25 MG Capsule 50 MG PO (17:00)
[2020-04-17 19:36] VITALS: BP 131/57; PULSE 71; RESP 16; TEMP 37.1; O2SAT 94
[2020-04-17 20:02] VITALS: PULSE 70
[2020-04-17] MEDS: MELATONIN 10 MG TABLET PO (21:37)
[2020-04-17] MEDS: DULoxetine Hcl 30 MG Capsule PO (21:38)
[2020-04-17] MEDS: Isosorbide Mononitrate 60 MG Tablet 120 MG PO (21:38)
[2020-04-17] MEDS: Levothyroxine 75 MCG Tablet PO (21:38)
[2020-04-17] MEDS: Pravastatin 40 MG Tablet PO (21:38)
[2020-04-17] MEDS: QUEtiapine 100 MG Tablet 300 MG PO (21:38)
[2020-04-17 21:55] LABS: Bedside Glucose 183 mg/dL (70-110)
[2020-04-17 23:14] VITALS: BP 122/48; PULSE 68; RESP 16; TEMP 36.6; O2SAT 93
[2020-04-17 23:16] LABS: Bedside Glucose 167 mg/dL (70-110)
[2020-04-17] MEDS: Morphine 2 MG/ML Syringe IV (23:21)
[2020-04-17] MEDS: 0.9% Saline Lock 10 ML Syringe IV (23:22)
--- NOTE | 2020-04-17 23:27 | NURSING ---
Pt had called out and told [employer] she felt hot all over. Vital signs obtained which were normal. Blood sugar was 167. Complained of pain rated at a 7. Morphine given and pt wanted cranberry juice.
[2020-04-18] MEDS: Menthol/Lanolin/Calamine/Znox 113 GM Tube 1 APPLIC TOPICAL ×3 (05:33→22:11)
[2020-04-18 06:12] LABS: Hematocrit 25.1 % (37-47); Hemoglobin 7.5 g/dL (12.0-15.0); Mean Corp Hgb Conc 29.9 g/dL (32-36); Mean Corpuscular Hgb 23.4 pg (27.0-32.0); Mean Corpuscular Volume 78.4 fL (81-99); Mean Platelet Vol. 9.6 fl (6.2-12.0); Platelet Count 197 K/mm3 (150-450); RBC Distribution Width CV 17.6 % (11.6-14.6); RBC Distribution Width SD 50.1 fl (35.1-43.9); White Blood Count 4.3 K/mm3 (4.4-11.0)
[2020-04-18 06:20] VITALS: BP 126/42; PULSE 65; RESP 16; TEMP 36.8; O2SAT 94
[2020-04-18 06:43] LABS: Anion Gap 4 (5-15); BUN 21 mg/dL (7-18); BUN/Creat Ratio 17.6 RATIO (10-20); Calcium,Total 7.9 mg/dL (8.5-10.1); Chloride 112 mmol/L (98-107); Creatinine, Serum 1.19 mg/dL (0.55-1.02); EST Glomerular Filtration Rate 47 mL/min (>60); Est Glom Filt Rate - Afr Amer 57 mL/min (>60); Glucose 69 mg/dL (74-106); Potassium 3.7 mmol/L (3.5-5.1); Sodium Level 141 mmol/L (136-145)
[2020-04-18] MEDS: Morphine 2 MG/ML Syringe IV ×3 (06:45→19:31)
[2020-04-18] MEDS: 0.9% Saline Lock 10 ML Syringe IV (06:46)
[2020-04-18 06:56] LABS: Bedside Glucose 81 mg/dL (70-110)
--- NOTE | 2020-04-18 07:03 | NURSING ---
Blood sugar 81. Apple juice given and pt ordered breakfast.
--- NOTE | 2020-04-18 07:06 | PN_ITS ---
Patient Problems: Active and Suspected Problems (Last Reviewed 04/16/20 @ 15:[address] Judson Massey MD) Cellulitis of left lower limb (Acute) Infection of left foot (Acute) Subjective: Patient was seen this morning for follow up, s/p I+D left foot on 04/15/2020. No complaints of fever, chills, nausea or vomiting, however she relates she has two episodes of diarrhea, she relates she had constipation yesterday. - Physical Exam Vitals/I&O's: Vital Signs Temp Pulse Resp BP Pulse Ox 98.2 F 65 16 126/42 H 94 04/18/20 06:20 04/18/20 06:20 04/18/20 06:20 04/18/20 06:20 04/18/20 06:20 Oxygen Flow Rate (L/min) 3 Oxygen Delivery Method Room Air Weight: 86.183 kg Body Mass Index (BMI) 32.5 Finger Stick Blood Glucose 193 Intake and Output for Last 24 Hours 04/16/20 04/17/20 04/18/20 23:59 23:59 23:59 Intake Total 516.5 / 516.5 2680 / 2680 50 / 50 Output Total 2 / 2 Balance 516.5 / 516.5 2680 / 2678 48 / 48 General: Alert, Oriented x3, Cooperative, No apparent distress Extremities: Capillary Refill Less than 3 Seconds, No Calf Tenderness, - - s/p debridement left foot with wound to the plantar foot and also smaller one to the dorsal lateral foot, there is no cellulitis, no maloder, no purulence, no visible abscess, no necrosis noted - significant improvement noted, no evidence of acute ischemia to the foot or ankle. Musculoskeletal: Tenderness - There is some pain to the surgical site on the left foot Psych/Mental Status: Appropriate Microbiology Past 72 Hours 04/15/20 15:16 Other - Left Foot Gram Stain - Final 04/15/20 15:16 Other - Left Foot Wound Culture - Preliminary Alpha Hemolytic Streptococcus Gram positive mitch Coag Negative Staph GPC Poss Enterococcus sp 04/15/20 15:16 Other - Left Foot Gram Stain - Final 04/15/20 15:16 Other - Left Foot Wound Culture - Preliminary Alpha Hemolytic Streptococcus GNR Poss Pseudomonas sp Coag Negative Staph 04/15/20 10:00 Wound Abcess - Left Foot Gram Stain - Final 04/15/20 10:00 Wound Abcess - Left Foot Wound Culture - Preliminary Alpha Hemolytic Streptococcus GNR Poss Pseudomonas sp Coag Negative Staph 04/15/20 Unknown Mucosa - Nose SARS-CoV-2 Antigen (Rapid) - Final Laboratory Results 04/15/20 15:16: S.aureus Protein A PCR NEGATIVE, MRSA (PCR) Negative 04/17/20 06:05: WBC Cancelled, Corrected WBC Cancelled, RBC Cancelled, Hgb Cancelled, Hct Cancelled, MCV Cancelled, MCH Cancelled, MCHC Cancelled, RDW Std Deviation Cancelled, RDW Coeff of Marco Cancelled, Plt Count Cancelled, MPV Cancelled, Diff Path Review Cancelled 04/17/20 06:05: Sodium 136, Potassium 4.7, Chloride 108 H, Carbon Dioxide 20.0 L , Anion Gap 8, BUN 39 H, Creatinine 1.52 H, Estim Creat Clear Calc 28.89, Est GFR (MDRD) Af Amer 43 L, Est GFR (MDRD) Non-Af 36 L, BUN/Creatinine Ratio 25.7 H , Glucose 149 H, Calcium 8.0 L 04/17/20 08:10: WBC 5.0, RBC 3.19 L, Hgb 7.6 L, Hct 25.2 L, MCV 79.0 L, MCH 23.8 L, MCHC 30.2 L, RDW Std Deviation 50.1 H, RDW Coeff of Marco 17.5 H, Plt Count 154, MPV 9.5 04/17/20 11:27: POC Glucose 231 H 04/17/20 16:03: POC Glucose 222 H 04/17/20 21:29: POC Glucose 183 H 04/17/20 23:10: POC Glucose 167 H 04/18/20 05:17: WBC 4.3 L, RBC 3.20 L, Hgb 7.5 L, Hct 25.1 L, MCV 78.4 L, MCH 23.4 L, MCHC 29.9 L, RDW Std Deviation 50.1 H, RDW Coeff of Marco 17.6 H, Plt Count 197, MPV 9.6 04/18/20 05:17: Sodium 141, Potassium 3.7, Chloride 112 H, Carbon Dioxide 25.0, Anion Gap 4 L, BUN 21 H, Creatinine 1.19 H, Estim Creat Clear Calc 36.90, Est GFR (MDRD) Af Amer 57 L, Est GFR (MDRD) Non-Af 47 L, BUN/Creatinine Ratio 17.6, Glucose 69 L, Calcium 7.9 L 04/18/20 06:39: POC Glucose 81 Current Medications Acetaminophen (Acetaminophen 325 Mg Tablet) 650 mg PO Q6H PRN PRN PRN Reason: Pain Score 1-10 Last Admin: 04/15/20 22:01 Dose: 650 mg Documented by: Allopurinol (Allopurinol 100 Mg Tablet) 100 mg PO DAILY [facility] Last Admin: 04/16/20 11:16 Dose: 100 mg Documented by: Amlodipine Besylate (Amlodipine 5 Mg Tablet) 5 mg PO DAILY [facility] Last Admin: 04/17/20 09:11 Dose: 5 mg Documented by: Aspirin (Aspirin E.C. 81 Mg Tablet) [facility] Last Admin: 04/17/20 09:11 Dose: 81 mg Documented by: Calamine/Phenol (Menthol/Lanolin/Calamine/Znox 113 Gm Tube) 1 applic TOPICAL TID [facility]; Protocol Last Admin: 04/18/20 05:33 Dose: 1 applicatio Documented by: Calcium Carbonate (Calcium Carbonate 500 Mg Tablet) [facility] Last Admin: 04/17/20 16:57 Dose: 500 mg Documented by: Carvedilol (Carvedilol 25 Mg Tablet) 25 mg PO BID [facility] Last Admin: 04/17/20 21:37 Dose: 25 mg Documented by: Clopidogrel Bisulfate (Clopidogrel Bisulfate 75 Mg Tablet) 75 mg PO DAILY [facility] Last Admin: 04/17/20 09:12 Dose: 75 mg Documented by: Dextrose (Dextrose 50%-Water 25 Gm/50 Ml Disp.Syrin) 0 gm IV X1 PRN; Protocol PRN Reason: Hypoglycemia Docusate Sodium (Docusate Sodium 100 Mg Capsule) 100 mg PO BID PRN PRN PRN Reason: Constipation Last Admin: 04/17/20 06:54 Dose: 100 mg Documented by: Duloxetine HCl (Duloxetine Hcl 30 Mg Capsule) 30 mg PO QHS [facility] Last Admin: 04/17/20 21:38 Dose: 30 mg Documented by: Glucagon (Glucagon 1 Mg/Ml Syringe) 1 mg IM .X1 PRN PRN Reason: Hypoglycemia Heparin Sodium (Porcine) (Heparin Injection (Vial) 5,000 Unit/Ml Vial) 5,000 unit SC Q12 [facility] Last Admin: 04/17/20 22:13 Dose: Not Given Documented by: Hydroxyzine Pamoate (Hydroxyzine [place] 25 Mg Capsule) 50 mg PO Q8H PRN PRN PRN Reason: Anxiety/allergies Last Admin: 04/17/20 17:00 Dose: 50 mg Documented by: Vancomycin IV Pharmacy to Dose (1 ea/ Sodium Chloride) 500 mls @ 250 mls/hr IV X1 PRN; Protocol PRN Reason: Rx to Dose Sodium Chloride () 250 mls @ 15 mls/hr IV .[id number] PRN PRN Reason: Additional IVPB Infusion Last Infusion: 04/16/20 15:40 Dose: 0 mls/hr Documented by: Piperacillin Sod/Tazobactam (Sod 3.375 gm/ Sodium Chloride) 50 mls @ 12.5 mls/hr IV Q8 [facility] Last Admin: 04/18/20 05:33 Dose: 12.5 mls/hr Documented by: Vancomycin HCl 1,500 mg/ (Sodium Chloride) 530 mls @ 250 mls/hr IV Q48H [facility] Last Infusion: 04/17/20 14:15 Dose: Infused Documented by: Sodium Chloride () 250 mls @ 15 mls/hr IV .[id number] PRN PRN Reason: Saline Flush Sodium Chloride () 250 mls @ 15 mls/hr IV .[id number] PRN PRN Reason: Additional IVPB Infusion Insulin Glargine (Insulin Glargine 100 Units/Ml Pen) 36 units SC BID [facility] Last Admin: 04/17/20 21:38 Dose: 36 u Documented by: Insulin Human Lispro (Insulin Lispro 100 Unit/Ml Insuln.Pen) 0 unit SC ACHS [facility]; Protocol Last Admin: 04/18/20 06:41 Dose: Not Given Documented by: Isosorbide Mononitrate (Isosorbide Mononitrate 60 Mg Tablet) 60 mg PO DAILY [facility] Last Admin: 04/17/20 09:13 Dose: 60 mg Documented by: Isosorbide Mononitrate (Isosorbide Mononitrate 60 Mg Tablet) 120 mg PO QHS [facility] Last Admin: 04/17/20 21:38 Dose: 120 mg Documented by: Levothyroxine Sodium (Levothyroxine 75 Mcg Tablet) 75 mcg PO QHS [facility] Last Admin: 04/17/20 21:38 Dose: 75 mcg Documented by: Loratadine (Loratadine 10 Mg Tablet) 10 mg PO DAILY [facility] Last Admin: 04/17/20 09:11 Dose: 10 mg Documented by: Melatonin (Melatonin 10 Mg Tablet) 10 mg PO QHS [facility] Last Admin: 04/17/20 21:37 Dose: 10 mg Documented by: Morphine Sulfate (Morphine 2 Mg/Ml Syringe) 2 - 4 mg IV Q3H PRN PRN PRN Reason: Pain Score 6-10 Last Admin: 04/18/20 06:45 Dose: 2 mg Documented by: Ondansetron HCl (Ondansetron 4 Mg/2 Ml Vial) 4 mg IV Q8H PRN PRN PRN Reason: NAUSEA/VOMITING Pantoprazole Sodium (Pantoprazole Sodium 20 Mg Tablet) 20 mg PO DAILY [facility] Last Admin: 04/17/20 09:12 Dose: 20 mg Documented by: Pravastatin Sodium (Pravastatin 40 Mg Tablet) 40 mg PO QHS [facility] Last Admin: 04/17/20 21:38 Dose: 40 mg Documented by: Quetiapine Fumarate (Quetiapine 100 Mg Tablet) 300 mg PO QHS [facility] Last Admin: 04/17/20 21:38 Dose: 300 mg Documented by: Sodium Chloride (0.9% Saline Lock 10 Ml Syringe) 10 - 40 ml IV UD PRN PRN Reason: SALINE FLUSH Last Admin: 04/18/20 06:46 Dose: 10 ml Documented by: Sodium Chloride (0.9% Saline Lock 10 Ml Syringe) 10 - 40 ml IV UD PRN PRN Reason: SALINE FLUSH Trazodone HCl (Trazodone 50 Mg Tablet) 50 mg PO QHS [facility] Last Admin: 04/17/20 21:36 Dose: Not Given Documented by: Medical Necessity - Tobacco Use Smoking Status: Never smoker Assessment/Plan All Active Problems (Last Reviewed 04/16/20 @ 15:[address] Judson Massey MD) Cellulitis of left lower limb (Acute) Infection of left foot (Acute) Nonhealing surgical wound (Acute) Ulcer of right foot with necrosis of bone (Resolved) Chest pain (Acute) -s/p I+D / debridement left foot on 04/15/[address] Magana due to gas / ab scess infection -Uncontrolled diabetes with neuropathy -Non acute Charcot midfoot, left -acute kidney injury -Other comorbidities: Coronary artery disease, hypertension, GERD, history of blood clots and history of blood transfusion, history of cerebrovascular accidents, hyperlipidemia, irritable bowel syndrome, history of iron deficiency anemia, obesity, osteoporosis, history of gastric bypass, recent abdominal surgery is noted with delayed healing Re-evaluation performed. Reviewed data. Clinically foot much improved. Continue with daily wet to dry dressing changes to site - but will switch to dakins soln wet to dry daily. Follow cultures of foot and blood cultures. Polyorganism noted to wound cultures, continue w/ IV antibiotics - Vanc and Zosyn, ID consulted. No weightbearing left foot, keep foot elevated. Diarrhea - check c diff DVT Prophylaxis: Pt on subcutaneous Heparin Hgb 7.5, stable since yesterday, diabetes and other medical problems: medicine team also following, appreciate assistance. Podiatry will continue to follow, please contact if any questions
--- NOTE | 2020-04-18 08:06 | NURSING ---
wound photo: left foot
[2020-04-18] MEDS: Calcium Carbonate 500 MG Tablet PO (08:31)
[2020-04-18] MEDS: Clopidogrel Bisulfate 75 MG Tablet PO (08:32)
[2020-04-18] MEDS: Loratadine 10 MG Tablet PO (08:32)
[2020-04-18] MEDS: Carvedilol 25 MG Tablet PO ×2 (08:32→22:07)
[2020-04-18] MEDS: amLODIPine 5 MG Tablet PO (08:33)
[2020-04-18] MEDS: Heparin Injection (Vial) 5,000 UNIT/ML VIAL 5000 UNIT SC ×2 (08:33→22:05)
[2020-04-18] MEDS: Pantoprazole Sodium 20 MG Tablet PO (08:33)
[2020-04-18] MEDS: Aspirin E.C. 81 MG Tablet PO (08:33)
[2020-04-18] MEDS: Allopurinol 100 MG Tablet PO (08:35)
[2020-04-18] MEDS: Isosorbide Mononitrate 60 MG Tablet PO (08:37)
[2020-04-18 08:41] VITALS: BP 135/43; PULSE 64; RESP 18; TEMP 36.7; O2SAT 98
--- NOTE | 2020-04-18 09:36 | CASEMGMT ---
Addendum entered by Shabnam Merino 04/18/20 10:49: SW received call from Helen in TCU stating she does have beds available. SW in to speak with pt. SW introduced self and role at [facility]. Pt is alert and orientated. Pt confirms agreeable to TCU. SW provided pt with list of SNF that accept pt's insurance. Pt still agreeable to TCU. SW informed pt that TCU does have a bed available. BARRY placed a call to Helen in TCU and provided referral. Helen to review referral. Plan: TCU pending acceptance Shabnam BURLESON, CASHIER Original Note: Social Work Note SW updated that pt is requesting TCU. BARRY placed a call to Helen in TCU and left message regarding bed availability. BARRY waiting for call back. Shabnam BURLESON, CASHIER
[2020-04-18] MEDS: hydrOXYzine PAM 25 MG Capsule 50 MG PO ×2 (10:44→19:01)
[2020-04-18 11:06] LABS: Bedside Glucose 179 mg/dL (70-110)
[2020-04-18] MEDS: Insulin Lispro 100 UNIT/ML INSULN.PEN SC ×3 (11:27→22:05)
--- NOTE | 2020-04-18 11:28 | PN_ITS ---
<Kasandra Perez RESPOOLER - Last Filed: 04/18/20 11:42> Patient Problems: Active and Suspected Problems (Last Reviewed 04/16/20 @ 15:[address] Judson seay MD) Cellulitis of left lower limb (Acute) Infection of left foot (Acute) Subjective: Patient seen and examined. States constipation has resolved. Pain controlled. Denies fever, chills. Agreeable to SNF at discharge, requesting TCU. - Physical Exam Vitals/I&O's: Vital Signs Temp Pulse Resp BP Pulse Ox 98.0 F 64 18 135/43 H 98 04/18/20 08:41 04/18/20 08:41 04/18/20 08:41 04/18/20 08:41 04/18/20 08:41 Oxygen Flow Rate (L/min) 3 Oxygen Delivery Method Room Air Weight: 190 lb 0.016 oz Body Mass Index (BMI) 32.5 Finger Stick Blood Glucose 193 Intake and Output for Last 24 Hours 04/16/20 04/17/20 04/18/20 23:59 23:59 23:59 Intake Total 516.5 / 516.5 2680 / 2680 100 / 100 Output Total 2 / 2 Balance 516.5 / 516.5 2680 / 2678 98 / 98 General: Alert, Oriented x3, Cooperative HEENT: Atraumatic, PERRLA, EOMI, Normocephalic Neck: Supple, No JVD, Negative Carotid Bruits Lungs: Clear to auscultation, Normal air movement Cardiovascular: Regular rate, No murmurs Abdomen: Bowel Sounds Present, Soft, Non Tender, Non-Distended Extremities: No clubbing, No cyanosis, No edema, Capillary Refill Less than 3 Seconds Skin: - - Left foot dressing intact Musculoskeletal: No Tenderness to Palpation of Joints or Extremities Neurological: Cranial nerves II-XII grossly intact, Neuro grossly intact Psych/Mental Status: Normal Affect, Appropriate Microbiology Past 72 Hours 04/15/20 15:16 Other - Left Foot Gram Stain - Final 04/15/20 15:16 Other - Left Foot Wound Culture - Final Streptococcus mitis/ oralis Pseudomonas aeroginosa Staphylococcus epidermidis#2 Staphylococcus epidermidis 04/15/20 15:16 Other - Left Foot Anaerobic Culture - Preliminary Checking for anaerobes, further studies to follow. 04/15/20 10:00 Wound Abcess - Left Foot Gram Stain - Final 04/15/20 10:00 Wound Abcess - Left Foot Wound Culture - Preliminary Streptococcus mitis/ oralis Staphylococcus epidermidis Pseudomonas aeroginosa GPC Poss Enterococcus sp 04/15/20 15:16 Other - Left Foot Gram Stain - Final 04/15/20 15:16 Other - Left Foot Wound Culture - Preliminary Streptococcus mitis/ oralis Corynebacterium jeikeium Staphylococcus epidermidis Enterococcus faecalis GNR Poss Pseudomonas sp 04/15/20 Unknown Mucosa - Nose SARS-CoV-2 Antigen (Rapid) - Final Laboratory Results 04/15/20 15:16: S.aureus Protein A PCR NEGATIVE, MRSA (PCR) Negative 04/17/20 11:27: POC Glucose 231 H 04/17/20 16:03: POC Glucose 222 H 04/17/20 21:29: POC Glucose 183 H 04/17/20 23:10: POC Glucose 167 H 04/18/20 05:17: WBC 4.3 L, RBC 3.20 L, Hgb 7.5 L, Hct 25.1 L, MCV 78.4 L, MCH 23.4 L, MCHC 29.9 L, RDW Std Deviation 50.1 H, RDW Coeff of Marco 17.6 H, Plt Count 197, MPV 9.6 04/18/20 05:17: Sodium 141, Potassium 3.7, Chloride 112 H, Carbon Dioxide 25.0, Anion Gap 4 L, BUN 21 H, Creatinine 1.19 H, Estim Creat Clear Calc 36.90, Est GFR (MDRD) Af Amer 57 L, Est GFR (MDRD) Non-Af 47 L, BUN/Creatinine Ratio 17.6, Glucose 69 L, Calcium 7.9 L 04/18/20 06:39: POC Glucose 81 04/18/20 10:50: POC Glucose 179 H Current Medications Acetaminophen (Acetaminophen 325 Mg Tablet) 650 mg PO Q6H PRN PRN PRN Reason: Pain Score 1-10 Last Admin: 04/15/20 22:01 Dose: 650 mg Documented by: Allopurinol (Allopurinol 100 Mg Tablet) 100 mg PO DAILY [facility] Last Admin: 04/18/20 08:35 Dose: 100 mg Documented by: Amlodipine Besylate (Amlodipine 5 Mg Tablet) 5 mg PO DAILY [facility] Last Admin: 04/18/20 08:33 Dose: 5 mg Documented by: Aspirin (Aspirin E.C. 81 Mg Tablet) 81 mg PO DAILYCM [facility] Last Admin: 04/18/20 08:33 Dose: 81 mg Documented by: Calamine/Phenol (Menthol/Lanolin/Calamine/Znox 113 Gm Tube) 1 applic TOPICAL TI D [facility]; Protocol Last Admin: 04/18/20 05:33 Dose: 1 applicatio Documented by: Calcium Carbonate (Calcium Carbonate 500 Mg Tablet) [facility] Last Admin: 04/18/20 08:31 Dose: 500 mg Documented by: Carvedilol (Carvedilol 25 Mg Tablet) 25 mg PO BID [facility] Last Admin: 04/18/20 08:32 Dose: 25 mg Documented by: Clopidogrel Bisulfate (Clopidogrel Bisulfate 75 Mg Tablet) 75 mg PO DAILY [facility] Last Admin: 04/18/20 08:32 Dose: 75 mg Documented by: Dextrose (Dextrose 50%-Water 25 Gm/50 Ml Disp.Syrin) 0 gm IV X1 PRN; Protocol PRN Reason: Hypoglycemia Docusate Sodium (Docusate Sodium 100 Mg Capsule) 100 mg PO BID PRN PRN PRN Reason: Constipation Last Admin: 04/17/20 06:54 Dose: 100 mg Documented by: Duloxetine HCl (Duloxetine Hcl 30 Mg Capsule) 30 mg PO QHS [facility] Last Admin: 04/17/20 21:38 Dose: 30 mg Documented by: Glucagon (Glucagon 1 Mg/Ml Syringe) 1 mg IM .X1 PRN PRN Reason: Hypoglycemia Heparin Sodium (Porcine) (Heparin Injection (Vial) 5,000 Unit/Ml Vial) 5,000 unit SC Q12 [facility] Last Admin: 04/18/20 08:33 Dose: 5,000 unit Documented by: Hydroxyzine Pamoate (Hydroxyzine [place] 25 Mg Capsule) 50 mg PO Q8H PRN PRN PRN Reason: Anxiety/allergies Last Admin: 04/18/20 10:44 Dose: 50 mg Documented by: Vancomycin IV Pharmacy to Dose (1 ea/ Sodium Chloride) 500 mls @ 250 mls/hr IV X1 PRN; Protocol PRN Reason: Rx to Dose Sodium Chloride () 250 mls @ 15 mls/hr IV .[id number] PRN PRN Reason: Additional IVPB Infusion Last Infusion: 04/18/20 09:33 Dose: 15 mls/hr Documented by: Piperacillin Sod/Tazobactam (Sod 3.375 gm/ Sodium Chloride) 50 mls @ 12.5 mls/hr IV Q8 [facility] Last Infusion: 04/18/20 09:33 Dose: Infused Documented by: Vancomycin HCl 1,500 mg/ (Sodium Chloride) 530 mls @ 250 mls/hr IV Q48H [facility] Last Infusion: 04/17/20 14:15 Dose: Infused Documented by: Sodium Chloride () 250 mls @ 15 mls/hr IV .[id number] PRN PRN Reason: Saline Flush Sodium Chloride () 250 mls @ 15 mls/hr IV .[id number] PRN PRN Reason: Additional IVPB Infusion Insulin Glargine (Insulin Glargine 100 Units/Ml Pen) 36 units SC BID [facility] Last Admin: 04/18/20 08:34 Dose: 36 u Documented by: Insulin Human Lispro (Insulin Lispro 100 Unit/Ml Insuln.Pen) 0 unit SC ACHS [facility]; Protocol Last Admin: 04/18/20 06:41 Dose: Not Given Documented by: Isosorbide Mononitrate (Isosorbide Mononitrate 60 Mg Tablet) 60 mg PO DAILY [facility] Last Admin: 04/18/20 08:37 Dose: 60 mg Documented by: Isosorbide Mononitrate (Isosorbide Mononitrate 60 Mg Tablet) 120 mg PO QHS [facility] Last Admin: 04/17/20 21:38 Dose: 120 mg Documented by: Levothyroxine Sodium (Levothyroxine 75 Mcg Tablet) 75 mcg PO QHS [facility] Last Admin: 04/17/20 21:38 Dose: 75 mcg Documented by: Loratadine (Loratadine 10 Mg Tablet) 10 mg PO DAILY [facility] Last Admin: 04/18/20 08:32 Dose: 10 mg Documented by: Melatonin (Melatonin 10 Mg Tablet) 10 mg PO QHS [facility] Last Admin: 04/17/20 21:37 Dose: 10 mg Documented by: Morphine Sulfate (Morphine 2 Mg/Ml Syringe) 2 - 4 mg IV Q3H PRN PRN PRN Reason: Pain Score 6-10 Last Admin: 04/18/20 06:45 Dose: 2 mg Documented by: Ondansetron HCl (Ondansetron 4 Mg/2 Ml Vial) 4 mg IV Q8H PRN PRN PRN Reason: NAUSEA/VOMITING Pantoprazole Sodium (Pantoprazole Sodium 20 Mg Tablet) 20 mg PO DAILY [facility] Last Admin: 04/18/20 08:33 Dose: 20 mg Documented by: Pravastatin Sodium (Pravastatin 40 Mg Tablet) 40 mg PO QHS [facility] Last Admin: 04/17/20 21:38 Dose: 40 mg Documented by: Quetiapine Fumarate (Quetiapine 100 Mg Tablet) 300 mg PO QHS [facility] Last Admin: 04/17/20 21:38 Dose: 300 mg Documented by: Sodium Chloride (0.9% Saline Lock 10 Ml Syringe) 10 - 40 ml IV UD PRN PRN Reason: SALINE FLUSH Last Admin: 04/18/20 06:46 Dose: 10 ml Documented by: Sodium Chloride (0.9% Saline Lock 10 Ml Syringe) 10 - 40 ml IV UD PRN PRN Reason: SALINE FLUSH Trazodone HCl (Trazodone 50 Mg Tablet) 50 mg PO QHS [facility] Last Admin: 04/17/20 21:36 Dose: Not Given Documented by: Medical Necessity - Tobacco Use Smoking Status: Never smoker Assessment/Plan All Active Problems (Last Reviewed 04/16/20 @ 15:[address] Judson Massey MD) Cellulitis of left lower limb (Acute) Infection of left foot (Acute) Nonhealing surgical wound (Acute) Ulcer of right foot with necrosis of bone (Resolved) Chest pain (Acute) 1. CAD with history of CABG and stents- Prior heart cath November 2018 which demonstrated mid RCA lesion 65% stenosis, FFR was done with no PCI. Stress echo June 2019 negative for ischemia. Continue medical management including aspirin, Plavix, carvedilol, statin, isosorbide. Follows with Dr. Perez. Okay to resume aspirin, Plavix per podiatry. 2. Recurrent nonhealing left foot ulcer with prior Charcot deformity-podiatry primary. 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 On IV vancomycin and IV Zosyn. Patient underwent incision and drainage left foot with widespread debridement of nonviable tissue 04/15/2020. Cultures preliminary growing multiple organisms including strep, Pseudomonas and staph. Nonweightbearing left lower extremity. PT/OT. ID consult pending. Patient agreeable to SNF at discharge. 3. CARLOS on chronic kidney disease stage III-improved with IV fluids. Trend BMP. 4. Type 2 diabetes mellitus- Continue home insulin regimen. Accu-Cheks with sliding scale insulin. Hemoglobin A1c January 2020 7.8%. 5. Hypertension-stable, continue Norvasc, Coreg, nitrate. Hold lisinopril. 6. GERD-continue PPI. 7. Hypothyroidism-continue Synthroid. 8. PVD-continue aspirin, Plavix, statin. 9. Acute blood loss anemia on chronic microcytic anemia-blood loss anemia as expected outcome related to #2/incision and drainage. Trend CBC. Previous iron studies 2016 consistent with iron deficiency. Repeat iron studies, B12, folate ordered. Plan to transfuse PRBC for hemoglobin less than 7. DVT prophylaxis-SCDs, subcu heparin This patient was seen by CLIFFORD Grayson under the supervision of Dr. Hernandez. <Con Hernandez - Last Filed: 04/18/20 17:18> - Physical Exam Vitals/I&O's: Vital Signs Temp Pulse Resp BP Pulse Ox 36.7 C 64 18 155/51 H 98 04/18/20 14:46 04/18/20 14:46 04/18/20 14:46 04/18/20 14:46 04/18/20 14:46 Oxygen Flow Rate (L/min) 3 Oxygen Delivery Method Room Air Weight: 86.183 kg Body Mass Index (BMI) 32.5 Finger Stick Blood Glucose 193 Intake and Output for Last 24 Hours 04/16/20 04/17/20 04/18/20 23:59 23:59 23:59 Intake Total 516.5 / 516.5 2680 / 2680 179 / 179 Output Total 2 / 2 Balance 516.5 / 516.5 2680 / 2678 177 / 177 General: Alert, Cooperative HEENT: Atraumatic, Normocephalic Lungs: Clear to auscultation, Normal air movement Cardiovascular: Regular rate, No murmurs Abdomen: Bowel Sounds Present, Soft, Non Tender, Non-Distended Extremities: No clubbing, No edema, Capillary Refill Less than 3 Seconds Psych/Mental Status: Normal Affect, Appropriate Microbiology Past 72 Hours 04/15/20 15:16 Other - Left Foot Gram Stain - Final 04/15/20 15:16 Other - Left Foot Wound Culture - Preliminary Streptococcus mitis/ oralis Corynebacterium jeikeium Staphylococcus epidermidis Enterococcus faecalis GNR Poss Pseudomonas sp 04/15/20 15:16 Other - Left Foot Anaerobic Culture - Preliminary 04/15/20 10:00 Wound Abcess - Left Foot Gram Stain - Final 04/15/20 10:00 Wound Abcess - Left Foot Wound Culture - Preliminary Streptococcus mitis/ oralis Staphylococcus epidermidis Pseudomonas aeroginosa GPC Poss Enterococcus sp 04/15/20 10:00 Wound Abcess - Left Foot Anaerobic Culture - Preliminary Checking for anaerobes, further studies to follow. 04/15/20 15:16 Other - Left Foot Gram Stain - Final 04/15/20 15:16 Other - Left Foot Wound Culture - Final Streptococcus mitis/ oralis Pseudomonas aeroginosa Staphylococcus epidermidis#2 Staphylococcus epidermidis 04/15/20 15:16 Other - Left Foot Anaerobic Culture - Preliminary Checking for anaerobes, further studies to follow. 04/15/20 Unknown Mucosa - Nose SARS-CoV-2 Antigen (Rapid) - Final Laboratory Results 04/15/20 15:16: S.aureus Protein A PCR NEGATIVE, MRSA (PCR) Negative 04/17/20 21:29: POC Glucose 183 H 04/17/20 23:10: POC Glucose 167 H 04/18/20 05:17: WBC 4.3 L, RBC 3.20 L, Hgb 7.5 L, Hct 25.1 L, MCV 78.4 L, MCH 23 .4 L, MCHC 29.9 L, RDW Std Deviation 50.1 H, RDW Coeff of Marco 17.6 H, Plt Count 197, MPV 9.6 04/18/20 05:17: Sodium 141, Potassium 3.7, Chloride 112 H, Carbon Dioxide 25.0, Anion Gap 4 L, BUN 21 H, Creatinine 1.19 H, Estim Creat Clear Calc 36.90, Est GFR (MDRD) Af Amer 57 L, Est GFR (MDRD) Non-Af 47 L, BUN/Creatinine Ratio 17.6, Glucose 69 L, Calcium 7.9 L 04/18/20 06:39: POC Glucose 81 04/18/20 10:50: POC Glucose 179 H 04/18/20 13:50: Vitamin B12 Pending 04/18/20 13:50: Iron 14 L, TIBC 334, Iron Saturation 4.2 L, Ferritin 20 04/18/20 13:50: RBC Folate Hemolysate Pending, RBC Folate Pending, Hematocrit Pending 04/18/20 16:25: POC Glucose 174 H Current Medications Acetaminophen (Acetaminophen 325 Mg Tablet) 650 mg PO Q6H PRN PRN PRN Reason: Pain Score 1-10 Last Admin: 04/18/20 16:28 Dose: 650 mg Documented by: Allopurinol (Allopurinol 100 Mg Tablet) 100 mg PO DAILY [facility] Last Admin: 04/18/20 08:35 Dose: 100 mg Documented by: Amlodipine Besylate (Amlodipine 5 Mg Tablet) 5 mg PO DAILY [facility] Last Admin: 04/18/20 08:33 Dose: 5 mg Documented by: Aspirin (Aspirin E.C. 81 Mg Tablet) [facility] Last Admin: 04/18/20 08:33 Dose: 81 mg Documented by: Calamine/Phenol (Menthol/Lanolin/Calamine/Znox 113 Gm Tube) 1 applic TOPICAL TID [facility]; Protocol Last Admin: 04/18/20 14:41 Dose: 1 applicatio Documented by: Calcium Carbonate (Calcium Carbonate 500 Mg Tablet) [facility] Last Admin: 04/18/20 16:25 Dose: Not Given Documented by: Carvedilol (Carvedilol 25 Mg Tablet) 25 mg PO BID [facility] Last Admin: 04/18/20 08:32 Dose: 25 mg Documented by: Clopidogrel Bisulfate (Clopidogrel Bisulfate 75 Mg Tablet) 75 mg PO DAILY [facility] Last Admin: 04/18/20 08:32 Dose: 75 mg Documented by: Dextrose (Dextrose 50%-Water 25 Gm/50 Ml Disp.Syrin) 0 gm IV X1 PRN; Protocol PRN Reason: Hypoglycemia Docusate Sodium (Docusate Sodium 100 Mg Capsule) 100 mg PO BID PRN PRN PRN Reason: Constipation Last Admin: 04/17/20 06:54 Dose: 100 mg Documented by: Duloxetine HCl (Duloxetine Hcl 30 Mg Capsule) 30 mg PO QHS [facility] Last Admin: 04/17/20 21:38 Dose: 30 mg Documented by: Glucagon (Glucagon 1 Mg/Ml Syringe) 1 mg IM .X1 PRN PRN Reason: Hypoglycemia Heparin Sodium (Porcine) (Heparin Injection (Vial) 5,000 Unit/Ml Vial) 5,000 unit SC Q12 [facility] Last Admin: 04/18/20 08:33 Dose: 5,000 unit Documented by: Hydroxyzine Pamoate (Hydroxyzine [place] 25 Mg Capsule) 50 mg PO Q8H PRN PRN PRN Reason: Anxiety/allergies Last Admin: 04/18/20 10:44 Dose: 50 mg Documented by: Vancomycin IV Pharmacy to Dose (1 ea/ Sodium Chloride) 500 mls @ 250 mls/hr IV X1 PRN; Protocol PRN Reason: Rx to Dose Sodium Chloride () 250 mls @ 15 mls/hr IV .[id number] PRN PRN Reason: Additional IVPB Infusion Last Infusion: 04/18/20 14:49 Dose: 0 mls/hr Documented by: Piperacillin Sod/Tazobactam (Sod 3.375 gm/ Sodium Chloride) 50 mls @ 12.5 mls/hr IV Q8 [facility] Last Admin: 04/18/20 14:39 Dose: 12.5 mls/hr Documented by: Sodium Chloride () 250 mls @ 15 mls/hr IV .[id number] PRN PRN Reason: Saline Flush Sodium Chloride () 250 mls @ 15 mls/hr IV .[id number] PRN PRN Reason: Additional IVPB Infusion Vancomycin HCl (Vancomycin) 1,000 mg in 200 mls @ 200 mls/hr IV Q24H [facility] Insulin Glargine (Insulin Glargine 100 Units/Ml Pen) 36 units SC BID [facility] Last Admin: 04/18/20 08:34 Dose: 36 u Documented by: Insulin Human Lispro (Insulin Lispro 100 Unit/Ml Insuln.Pen) 0 unit SC ACHS [facility]; Protocol Last Admin: 04/18/20 16:25 Dose: 2 units Documented by: Isosorbide Mononitrate (Isosorbide Mononitrate 60 Mg Tablet) 60 mg PO DAILY [facility] Last Admin: 04/18/20 08:37 Dose: 60 mg Documented by: Isosorbide Mononitrate (Isosorbide Mononitrate 60 Mg Tablet) 120 mg PO QHS [facility] Last Admin: 04/17/20 21:38 Dose: 120 mg Documented by: Levothyroxine Sodium (Levothyroxine 75 Mcg Tablet) 75 mcg PO QHS [facility] Last Admin: 04/17/20 21:38 Dose: 75 mcg Documented by: Loratadine (Loratadine 10 Mg Tablet) 10 mg PO DAILY [facility] Last Admin: 04/18/20 08:32 Dose: 10 mg Documented by: Melatonin (Melatonin 10 Mg Tablet) 10 mg PO QHS [facility] Last Admin: 04/17/20 21:37 Dose: 10 mg Documented by: Morphine Sulfate (Morphine 2 Mg/Ml Syringe) 2 - 4 mg IV Q3H PRN PRN PRN Reason: Pain Score 6-10 Last Admin: 04/18/20 14:43 Dose: 2 mg Documented by: Ondansetron HCl (Ondansetron 4 Mg/2 Ml Vial) 4 mg IV Q8H PRN PRN PRN Reason: NAUSEA/VOMITING Pantoprazole Sodium (Pantoprazole Sodium 20 Mg Tablet) 20 mg PO DAILY [facility] Last Admin: 04/18/20 08:33 Dose: 20 mg Documented by: Pravastatin Sodium (Pravastatin 40 Mg Tablet) 40 mg PO QHS [facility] Last Admin: 04/17/20 21:38 Dose: 40 mg Documented by: Quetiapine Fumarate (Quetiapine 100 Mg Tablet) 300 mg PO QHS [facility] Last Admin: 04/17/20 21:38 Dose: 300 mg Documented by: Sodium Chloride (0.9% Saline Lock 10 Ml Syringe) 10 - 40 ml IV UD PRN PRN Reason: SALINE FLUSH Last Admin: 04/18/20 06:46 Dose: 10 ml Documented by: Sodium Chloride (0.9% Saline Lock 10 Ml Syringe) 10 - 40 ml IV UD PRN PRN Reason: SALINE FLUSH Trazodone HCl (Trazodone 50 Mg Tablet) 50 mg PO QHS [facility] Last Admin: 04/17/20 21:36 Dose: Not Given Documented by: Assessment/Plan Patient seen and examined independently. Data reviewed. I agree with the above note by the nurse practitioner. 1. Left foot ulcer: IV Vanco and Zosyn. Infectious disease on consultation. 2. Acute kidney injury: Improving. Inpatient E&M: 36552 [facility] Hosp L2
--- NOTE | 2020-04-18 13:17 | PCM.RX.CS ---
Consult Pharmacy has been consulted to manage selected antiobiotic: Vancomycin Type of Consult: Follow-up Suspected Infection: Other Labs: Sodium 141 mmol/L (136-145) 04/18/20 05:17 Potassium 3.7 mmol/L (3.5-5.1) 04/18/20 05:17 Chloride 112 mmol/L (98-107) H 04/18/20 05:17 Carbon Dioxide 25.0 mmol/L (21.0-32.0) 04/18/20 05:17 Anion Gap 4 (5-15) L 04/18/20 05:17 BUN 21 mg/dL (7-18) H 04/18/20 05:17 Creatinine 1.19 mg/dL (0.55-1.02) H 04/18/20 05:17 Est GFR (MDRD) Af Amer 57 mL/min (>60) L 04/18/20 05:17 Est GFR (MDRD) Non-Af 47 mL/min (>60) L 04/18/20 05:17 BUN/Creatinine Ratio 17.6 RATIO (-) 04/18/20 05:17 Glucose 69 mg/dL (74-106) L 04/18/20 05:17 Microbiology: Microbiology 04/15/20 15:16 Other - Left Foot Gram Stain - Final 04/15/20 15:16 Other - Left Foot Wound Culture - Preliminary Streptococcus mitis/ oralis Corynebacterium jeikeium Staphylococcus epidermidis Enterococcus faecalis GNR Poss Pseudomonas sp 04/15/20 15:16 Other - Left Foot Anaerobic Culture - Preliminary 04/15/20 10:00 Wound Abcess - Left Foot Gram Stain - Final 04/15/20 10:00 Wound Abcess - Left Foot Wound Culture - Preliminary Streptococcus mitis/ oralis Staphylococcus epidermidis Pseudomonas aeroginosa GPC Poss Enterococcus sp 04/15/20 10:00 Wound Abcess - Left Foot Anaerobic Culture - Preliminary Checking for anaerobes, further studies to follow. 04/15/20 15:16 Other - Left Foot Gram Stain - Final 04/15/20 15:16 Other - Left Foot Wound Culture - Final Streptococcus mitis/ oralis Pseudomonas aeroginosa Staphylococcus epidermidis#2 Staphylococcus epidermidis 04/15/20 15:16 Other - Left Foot Anaerobic Culture - Preliminary Checking for anaerobes, further studies to follow. 11/20/20 Unknown Mucosa - Nose SARS-CoV-2 Antigen (Rapid) - Final Goal Trough: 10-15 mcg/mL Pharmacy Plan for Drug Dosing: DAILY ASSESSMENT Current Vancomcyin Dose: 1500mg q48h Number of Doses Received: 1250mg x1 preop dose on 04/15, 1500mg q48h x1 on 04/17 Current Renal Function: SrCr 1.19 Renal Function Trend: SrCr decreased from 1.98 upon admission Lab/Micro: Any Change in Vanc Plan: change Vanco dose to 1000mg q24h Pending Level: 04/19 at 1430 Pharmacy Service will continue to monitor and adjust dosing as required. Follow-Up Labs: Trough Vancomycin - 04/19 @ 1430
[2020-04-18 14:46] VITALS: BP 155/51; PULSE 64; RESP 18; TEMP 36.7; O2SAT 98
[2020-04-18 16:00] LABS: Ferritin 20 ng/mL (8-252); Iron 14 ug/dL (50-170); Iron Binding Capacity,Total 334 ug/dL (250-450); PERCENT IRON SATURATION 4.2 % (15.0-55.0)
[2020-04-18] MEDS: Acetaminophen 325 MG Tablet 650 MG PO (16:28)
--- NOTE | 2020-04-18 16:45 | CASEMGMT ---
Social Work Note Pt is able to admit to TCU once medically cleared. 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
[2020-04-18 16:56] LABS: Bedside Glucose 174 mg/dL (70-110)
--- NOTE | 2020-04-18 17:09 | PCM.HP.ID ---
Problem List (1) Infection of left foot Status: Acute Reason for Consult: L foot infection Consulted by: Dr. Magana History of Present Illness: The patient is a 74 year old F presented with worsening pain, swelling of R foot. Has been having problems for several months. No fever, no n/v/d. Came to hospital, taken to OR 04/[address] Magana for debridement. On vanc/zosyn, feeling better. Full ROS performed and neg except as noted above. - Medical History Past Medical History (Chronic Problems): Chronic Problems (Last Reviewed 04/16/20 @ 15:[address] 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 Hatfield @ [facility]:(Promus Premier 4.0 X 12 mm L2 stent from distal left main into proximal LCX; Promus Premier RX 2.25 X 12 mm L1 stent in distal LCX) 12/03/2018:Triple vessel CAD of the LAD, LCX, RCA Successful PTCA/YASIR mid LCX with a 2.5 x 20 Promus Synergy stent; 85%-->0-%, no dissection. 12/24/18:FFR of RCA=0.97, negative, left for medical managemen History of coronary artery bypass graft (Chronic) CABG X 3 vessels [facility]:DANIEL to LAD, reverse SVG to dx and to 2nd OM per Dr. Borjas @ [facility] 09/09/2014 Atherosclerotic heart disease of [place] coronary artery without angina pectoris (Chronic) CABG X 3 vessels [facility]: DANIEL to LAD, reverse SVG to dx and to 2nd OM per Dr. Borjas @ [facility] 09/09/2014; PTCA/YASIR to Left main, LAD, and OM1 per Dr. Hatfield 12/21/2014; History of stroke (Chronic) Carotid artery disease (Chronic) Peripheral vascular disease (Chronic) Hyperlipidemia (Chronic) Coronary artery disease (Chronic) Hypothyroidism (Chronic) Iron deficiency anemia (Chronic) GERD (gastroesophageal reflux disease) (Chronic) Allergies/Adverse Reactions: Allergies doxycycline Allergy (Severe, Verified 04/14/20 14:31) all over body hives and itching atorvastatin calcium [From Lipitor] Allergy (Verified 04/14/20 14:31) Unknown bupropion HCl [From Wellbutrin] Allergy (Verified 04/14/20 14:31) Unknown mannitol [From Reclast] Allergy (Verified 04/14/20 14:31) joint pain, unable to breathe, unable to walk propoxyphene napsylate [From Darvocet-N 100] Allergy (Verified 04/14/20 14:31) Unknown Quinolones Allergy (Verified 04/14/20 14:31) Unknown Tetanus Vaccines and Toxoid [Tetanus Vaccines & Toxoid] Allergy (Verified 04/14/20 14:31) Chest tightness tizanidine Allergy (Verified 04/14/20 14:31) Unknown zoledronic acid [From Reclast] Allergy (Verified 04/14/20 14:31) joint pain,unable to breathe, unaable to walk JOINT PAIN,UNABLE TO BREATHE,UNABLE TO WALK pravastatin Adverse Reaction (Severe, Verified 04/14/20 14:31) Myalgias gemfibrozil Adverse Reaction (Intermediate, Verified 04/14/20 14:31) Unknown NSAIDS (Non-Steroidal Anti-Inflamma Adverse Reaction (Verified 04/14/20 14:31) Other Home Medications: Ambulatory Orders Medication Instructions Recorded Levothyroxine Sodium [Levoxyl] 75 mcg PO QHS 03/10/17 Pravastatin Sodium 40 mg PO QHS 03/10/17 amlodipine 5 mg tablet 5 mg PO DAILY tab 05/05/18 glucagon (human recombinant) 1 mg 1 mg IM ONCE PRN 11/24/18 solution for injection Ergocalciferol [Vitamin D] 50,000 unit PO QWEEK 09/21/19 Esomeprazole Magnesium 20 mg PO DAILY 09/21/19 lisinopril 10 mg tablet 10 mg PO DAILY #90 tab 11/03/19 clopidogrel 75 mg tablet 75 mg PO DAILY #90 tab 11/23/19 duloxetine 30 mg capsule,delayed 30 mg PO QHS cap 01/11/20 release fexofenadine 180 mg tablet 180 mg PO DAILY tab 01/12/20 Carvedilol 25 mg PO BID 02/26/20 Hydroxyzine HCl 50 mg PO Q8H PRN PRN 02/26/20 Isosorbide Mononitrate [Isosorbide 60 mg PO .COMPLEX 02/26/20 Mononitrate ER] Nitroglycerin [Nitrolingual [place] 0.4 mg SL PRN PRN 02/26/20 ([facility])] Allopurinol 100 mg PO DAILY 03/17/20 Calcium Citrate 200 mg PO BID #0 03/17/20 L. Acidophilus/L.bulgaricus 1 tab PO DAILY 03/17/20 [Lactobacillus Tablet] insulin detemir U-100 100 unit/mL 36 unit SC BID ml 03/24/20 (3 mL) subcutaneous pen aspirin 81 mg tablet,delayed 81 mg PO DAILY 04/05/20 release cbd 1 dose PO 4X/DAY PRN 04/05/20 cyclobenzaprine 10 mg tablet 5 mg PO TID PRN tab 04/05/20 insulin aspart U-100 100 unit/mL 14 unit SC BID ml 04/05/20 (3 mL) subcutaneous pen ipratropium bromide 0.03 % nasal 2 spray INTRANASAL Q6H PRN ml 04/05/20 spray levomefolate Ca 3 mg-B6 35 1 cap PO Q6H cap 04/05/20 mg-meB12 2 mg-algal oil 90.314 mg capsule itxxdu-wobxcqjr-yhuidok 1 cap PO BID cap 04/05/20 24,000-76,000-120,000 unit capsule,delayed rel morphine 10 mg/5 mL oral solution See Rx Instructions PO Q6H PRN ml 04/05/20 quetiapine 100 mg tablet 300 mg PO QHS tab 04/05/20 Melatonin 5 mg PO 1700 04/15/20 Melatonin 10 mg PO QHS 04/15/20 traZODone [Desyrel] 50 mg PO QHS 04/15/20 Piperacil/Tazobactam [Zosyn] 3.375 gm IV Q8 #30 vial 04/18/20 Vancomycin IV [Vancomycin] 1,000 mg IV Q24H #10 bag 04/18/20 - Social History Tobacco Use: non-smoker Vital Signs Temp Pulse Resp BP Pulse Ox 98.1 F 64 18 155/51 H 98 04/18/20 14:46 04/18/20 14:46 04/18/20 14:46 04/18/20 14:46 04/18/20 14:46 Oxygen Flow Rate (L/min) 3 Oxygen Delivery Method Room Air Weight: 86.183 kg Body Mass Index (BMI) 32.5 Finger Stick Blood Glucose 193 Microbiology Past 72 Hours 04/15/20 15:16 Gram Stain - Final Other - Left Foot Wound Culture - Preliminary Streptococcus mitis/ oralis Corynebacterium jeikeium Staphylococcus epidermidis Enterococcus faecalis GNR Poss Pseudomonas sp Anaerobic Culture - Preliminary 04/15/20 10:00 Gram Stain - Final Wound Abcess - Left Foot Wound Culture - Preliminary Streptococcus mitis/ oralis Staphylococcus epidermidis Pseudomonas aeroginosa GPC Poss Enterococcus sp Anaerobic Culture - Preliminary Checking for anaerobes, further studies to follow. 04/15/20 15:16 Gram Stain - Final Other - Left Foot Wound Culture - Final Streptococcus mitis/ oralis Pseudomonas aeroginosa Staphylococcus epidermidis#2 Staphylococcus epidermidis Anaerobic Culture - Preliminary Checking for anaerobes, further studies to follow. 04/15/20 Unknown SARS-CoV-2 Antigen (Rapid) - Final Mucosa - Nose Laboratory Tests Past 24 Hrs 04/15/20 04/18/20 04/18/20 15:16 05:17 05:17 WBC 4.3 L RBC 3.20 L Hgb 7.5 L Hct 25.1 L MCV 78.4 L MCH 23.4 L MCHC 29.9 L RDW Std Deviation 50.1 H RDW Coeff of Marco 17.6 H Plt Count 197 MPV 9.6 Sodium 141 Potassium 3.7 Chloride 112 H Carbon Dioxide 25.0 Anion Gap 4 L BUN 21 H Creatinine 1.19 H Estim Creat Clear Calc 36.90 Est GFR (MDRD) Af Amer 57 L Est GFR (MDRD) Non-Af 47 L BUN/Creatinine Ratio 17.6 Glucose 69 L Calcium 7.9 L Iron TIBC Iron Saturation Ferritin Vitamin B12 RBC Folate Hemolysate RBC Folate Hematocrit S.aureus Protein A PCR NEGATIVE MRSA (PCR) Negative 04/18/20 04/18/20 04/18/20 13:50 13:50 13:50 WBC RBC Hgb Hct MCV MCH MCHC RDW Std Deviation RDW Coeff of Marco Plt Count MPV Sodium Potassium Chloride Carbon Dioxide Anion Gap BUN Creatinine Estim Creat Clear Calc Est GFR (MDRD) Af Amer Est GFR (MDRD) Non-Af BUN/Creatinine Ratio Glucose Calcium Iron 14 L TIBC 334 Iron Saturation 4.2 L Ferritin 20 Vitamin B12 Pending RBC Folate Hemolysate Pending RBC Folate Pending Hematocrit Pending S.aureus Protein A PCR MRSA (PCR) - Other Studies Radiology: [] reviewed Other Studies: [] Route of nutrition/ use of supplements: [] Nutritional Intake: [] IV Site: [] Maloney Catheter: [] - Physical Exam General: Alert, Oriented x3, Cooperative, No apparent distress HEENT: Atraumatic, PERRLA, EOMI Neck: Supple, No Nodes Lungs: Clear to auscultation, Normal air movement Cardiovascular: Regular rate, Regular Rhythm Abdomen: Soft, Non Tender, Non-Distended Extremities: Edema Skin: Ulcer/ Wound - L foot wrapped IV Site: Peripheral, without redness Musculoskeletal: No Tenderness to Palpation of Joints or Extremities Neurological: Cranial nerves II-XII grossly intact - Assessment/Plan Antibiotics: [] Assessment/Plan: [] Active and Suspected Problems (Last Reviewed 04/16/20 @ 15:[address] Judson Massey MD) Cellulitis of left lower limb (Acute) Infection of left foot (Acute) L foot infection - d/w Dr. Magana, did not see bone involvement in OR 04/15/20. Surg cx with MRSE x2, strep mitis, PsA, coryne, e faecalis. On vanc/zosyn. Plan will be for picc and at least 2 weeks vanc/zosyn with stop date 04/29/20. Weekly bmp, cbc, esr, and vanc trough. She does not recall reaction to quinolones. Will follow, thank you, wrote rx in EMR.
[2020-04-18] MEDS: Vancomycin IV 1,000 MG/200 ML BAG 200 MG IV (19:26)
[2020-04-18 19:53] LABS: Vitamin B12 > 2000 pg/mL (211-911)
[2020-04-18] MEDS: Sodium Ferric Gluconat 250 MG in 0.9% Normal Saline 250 ML 135 MG IV (20:11)
[2020-04-18 20:48] VITALS: BP 158/45; PULSE 67; RESP 18; TEMP 37; O2SAT 97
[2020-04-18] MEDS: QUEtiapine 100 MG Tablet 300 MG PO (22:06)
[2020-04-18] MEDS: traZODone 50 MG Tablet PO (22:06)
[2020-04-18] MEDS: Isosorbide Mononitrate 60 MG Tablet 120 MG PO (22:07)
[2020-04-18] MEDS: MELATONIN 10 MG TABLET PO (22:07)
[2020-04-18] MEDS: Levothyroxine 75 MCG Tablet PO (22:07)
[2020-04-18] MEDS: DULoxetine Hcl 30 MG Capsule PO (22:07)
[2020-04-18] MEDS: Pravastatin 40 MG Tablet PO (22:08)
[2020-04-18 22:20] LABS: Bedside Glucose 193 mg/dL (70-110)
[2020-04-19 03:30] VITALS: BP 124/58; PULSE 65; RESP 18; TEMP 36.7; O2SAT 94
[2020-04-19] MEDS: Morphine 2 MG/ML Syringe IV ×3 (05:21→17:39)
[2020-04-19] MEDS: Menthol/Lanolin/Calamine/Znox 113 GM Tube 1 APPLIC TOPICAL ×3 (05:27→21:04)
[2020-04-19 06:14] LABS: Hematocrit 26.8 % (37-47); Hemoglobin 7.8 g/dL (12.0-15.0); Mean Corp Hgb Conc 29.1 g/dL (32-36); Mean Corpuscular Hgb 23.1 pg (27.0-32.0); Mean Corpuscular Volume 79.5 fL (81-99); Mean Platelet Vol. 8.8 fl (6.2-12.0); Platelet Count 223 K/mm3 (150-450); RBC Distribution Width CV 17.9 % (11.6-14.6); RBC Distribution Width SD 51.1 fl (35.1-43.9); Red Blood Count 3.37 M/mm3 (4.2-5.4); White Blood Count 4.5 K/mm3 (4.4-11.0)
[2020-04-19 06:42] LABS: Anion Gap 5 (5-15); BUN 12 mg/dL (7-18); BUN/Creat Ratio 9.4 RATIO (10-20); Chloride 115 mmol/L (98-107); Creatinine, Serum 1.28 mg/dL (0.55-1.02); EST Glomerular Filtration Rate 44 mL/min (>60); Est Glom Filt Rate - Afr Amer 53 mL/min (>60); Estimated Creatinine Clearance 34.31 ml/min; Glucose 76 mg/dL (74-106); Potassium 3.6 mmol/L (3.5-5.1); Sodium Level 143 mmol/L (136-145)
[2020-04-19 06:46] LABS: Bedside Glucose 78 mg/dL (70-110)
[2020-04-19] MEDS: Pantoprazole Sodium 20 MG Tablet PO (09:25)
[2020-04-19] MEDS: Calcium Carbonate 500 MG Tablet PO ×2 (09:25→17:43)
[2020-04-19] MEDS: Isosorbide Mononitrate 60 MG Tablet PO (09:25)
[2020-04-19] MEDS: Aspirin E.C. 81 MG Tablet PO (09:25)
[2020-04-19] MEDS: Clopidogrel Bisulfate 75 MG Tablet PO (09:25)
[2020-04-19] MEDS: Allopurinol 100 MG Tablet PO (09:25)
[2020-04-19] MEDS: Carvedilol 25 MG Tablet PO ×2 (09:25→21:06)
[2020-04-19] MEDS: amLODIPine 5 MG Tablet PO (09:25)
[2020-04-19] MEDS: Heparin Injection (Vial) 5,000 UNIT/ML VIAL 5000 UNIT SC ×2 (09:25→21:21)
[2020-04-19] MEDS: Loratadine 10 MG Tablet PO (09:25)
[2020-04-19 09:30] VITALS: BP 150/50; PULSE 77; RESP 18; TEMP 36.7; O2SAT 97
[2020-04-19] MEDS: hydrOXYzine PAM 25 MG Capsule 50 MG PO (09:36)
[2020-04-19] MEDS: DAKIN'S SOL HALF STRENGTH (=0.25%) 1 APPLIC TOPICAL (09:40)
--- NOTE | 2020-04-19 09:58 | NURSING ---
wound photo: left dorsal foot
--- NOTE | 2020-04-19 09:59 | NURSING ---
wound photo: left plantar foot
--- NOTE | 2020-04-19 10:12 | CASEMGMT ---
Addendum entered by Shabnam Merino 04/19/20 16:25: SW placed green sheet on chart. Addendum entered by Shabnam Merino 04/19/20 16:21: SW updated pt that TCU is able to accept pt when medically cleared. Pt states understanding. Plan: TCU once medically cleared Original Note: Social Work Note Pt is getting PICC line placed today. Pt is able to discharge when medically ready. BARRY updated charge nurse, RN that pt can discharge to TCU whenever medically ready. Pt will likely discharge to TCU after PICC line. SW placed a call to Helen in TCU and left message that pt will likely discharge today after PICC. Plan: TCU when medically cleared Shabnam Merino [employer], [employer]
[2020-04-19] MEDS: Sodium Ferric Gluconat 250 MG in 0.9% Normal Saline 250 ML 135 MG IV (10:56)
[2020-04-19] MEDS: Insulin Lispro 100 UNIT/ML INSULN.PEN SC (12:05)
[2020-04-19 12:21] LABS: Bedside Glucose 175 mg/dL (70-110)
--- NOTE | 2020-04-19 12:27 | PCM.PROGNOTE ---
<ChrisKasandra PROGRAM CLINICIAN - Last Filed: 04/19/20 12:35> Patient Problems: Active and Suspected Problems (Last Reviewed 04/16/20 @ 15:[address] Judson Massey MD) Cellulitis of left lower limb (Acute) Infection of left foot (Acute) Subjective: Patient seen and examined. Reports intermittent anxiety. Denies significant pain. Denies fever, chills. Okay for discharge to TCU from hospitalist standpoint following placement of PICC line. Patient in agreement with plan. - Physical Exam Vitals/I&O's: Vital Signs Temp Pulse Resp BP Pulse Ox 98.0 F 77 18 150/50 H 97 04/19/20 09:30 04/19/20 09:30 04/19/20 09:30 04/19/20 09:30 04/19/20 09:30 Oxygen Flow Rate (L/min) 3 Oxygen Delivery Method Room Air Weight: 190 lb 0.016 oz Body Mass Index (BMI) 32.5 Finger Stick Blood Glucose 193 Intake and Output for Last 24 Hours 04/17/20 04/18/20 04/19/20 23:59 23:59 23:59 Intake Total 2680 / 2680 699 / 699 249.75 / 249.75 Output Total 2 / 2 Balance 2680 / 2678 697 / 697 249.75 / 249.75 General: Alert, Oriented x3, Cooperative HEENT: Atraumatic, PERRLA, EOMI, Normocephalic Neck: Supple, No JVD, Negative Carotid Bruits Lungs: Clear to auscultation, Normal air movement Cardiovascular: Regular rate, No murmurs Abdomen: Bowel Sounds Present, Soft, Non Tender, Non-Distended Extremities: No clubbing, No cyanosis, No edema, Capillary Refill Less than 3 Seconds Skin: - - Left foot dressing intact Musculoskeletal: No Tenderness to Palpation of Joints or Extremities Neurological: Cranial nerves II-XII grossly intact, Neuro grossly intact Psych/Mental Status: Normal Affect, Appropriate Microbiology Past 72 Hours 04/15/20 10:00 Wound Abcess - Left Foot Gram Stain - Final 04/15/20 10:00 Wound Abcess - Left Foot Wound Culture - Final Streptococcus mitis/ oralis Staphylococcus epidermidis Pseudomonas aeroginosa Enterococcus faecalis 04/15/20 10:00 Wound Abcess - Left Foot Anaerobic Culture - Preliminary Checking for anaerobes, further studies to follow. 04/15/20 15:16 Other - Left Foot Gram Stain - Final 04/15/20 15:16 Other - Left Foot Wound Culture - Final Streptococcus mitis/ oralis Pseudomonas aeroginosa Staphylococcus epidermidis#2 04/15/20 15:16 Other - Left Foot Anaerobic Culture - Preliminary Checking for anaerobes, further studies to follow. 04/15/20 15:16 Other - Left Foot Gram Stain - Final 04/15/20 15:16 Other - Left Foot Wound Culture - Final Streptococcus mitis/ oralis Corynebacterium jeikeium Staphylococcus epidermidis Enterococcus faecalis Pseudomonas aeroginosa 04/16/20 17:18 Blood Culture (Wb) - Right Hand Blood Culture - Preliminary No growth in 48 hours. 04/16/20 17:09 Blood Culture (Wb) - Right Forearm Blood Culture - Preliminary No growth in 48 hours. 04/18/20 16:15 Stool C. difficile DNA Amplification - Final Laboratory Results 04/18/20 13:50: Vitamin B12 > 2000 H 04/18/20 13:50: Iron 14 L, TIBC 334, Iron Saturation 4.2 L, Ferritin 20 04/18/20 13:50: RBC Folate Hemolysate Pending, RBC Folate Pending, Hematocrit Pending 04/18/20 16:25: POC Glucose 174 H 04/18/20 21:53: POC Glucose 193 H 04/19/20 05:54: WBC 4.5, RBC 3.37 L, Hgb 7.8 L, Hct 26.8 L, MCV 79.5 L, MCH 23.1 L, MCHC 29.1 L, RDW Std Deviation 51.1 H, RDW Coeff of Marco 17.9 H, Plt Count 223, MPV 8.8 04/19/20 05:54: Sodium 143, Potassium 3.6, Chloride 115 H, Carbon Dioxide 23.0, Anion Gap 5, BUN 12, Creatinine 1.28 H, Estim Creat Clear Calc 34.31, Est GFR (MDRD) Af Amer 53 L, Est GFR (MDRD) Non-Af 44 L, BUN/Creatinine Ratio 9.4 L, Glucose 76, Calcium 8.0 L 04/19/20 06:39: POC Glucose 78 04/19/20 12:03: POC Glucose 175 H Current Medications Acetaminophen (Acetaminophen 325 Mg Tablet) 650 mg PO Q6H PRN PRN PRN Reason: Pain Score 1-10 Last Admin: 04/18/20 16:28 Dose: 650 mg Documented by: Allopurinol (Allopurinol 100 Mg Tablet) 100 mg PO DAILY [facility] Last Admin: 04/19/20 09:25 Dose: 100 mg Documented by: Amlodipine Besylate (Amlodipine 5 Mg Tablet) 5 mg PO DAILY [facility] Last Admin: 04/19/20 09:25 Dose: 5 mg Documented by: Aspirin (Aspirin E.C. 81 Mg Tablet) [facility] Last Admin: 04/19/20 09:25 Dose: 81 mg Documented by: Calamine/Phenol (Menthol/Lanolin/Calamine/Znox 113 Gm Tube) 1 applic TOPICAL TID [facility]; Protocol Last Admin: 04/19/20 05:27 Dose: 1 applicatio Documented by: Calcium Carbonate (Calcium Carbonate 500 Mg Tablet) [facility] Last Admin: 04/19/20 09:25 Dose: 500 mg Documented by: Carvedilol (Carvedilol 25 Mg Tablet) 25 mg PO BID [facility] Last Admin: 04/19/20 09:25 Dose: 25 mg Documented by: Clopidogrel Bisulfate (Clopidogrel Bisulfate 75 Mg Tablet) 75 mg PO DAILY [facility] Last Admin: 04/19/20 09:25 Dose: 75 mg Documented by: Dextrose (Dextrose 50%-Water 25 Gm/50 Ml Disp.Syrin) 0 gm IV X1 PRN; Protocol PRN Reason: Hypoglycemia Docusate Sodium (Docusate Sodium 100 Mg Capsule) 100 mg PO DAILY [facility] Last Admin: 04/19/20 09:26 Dose: Not Given Documented by: Duloxetine HCl (Duloxetine Hcl 30 Mg Capsule) 30 mg PO QHS [facility] Last Admin: 04/18/20 22:07 Dose: 30 mg Documented by: Glucagon (Glucagon 1 Mg/Ml Syringe) 1 mg IM .X1 PRN PRN Reason: Hypoglycemia Heparin Sodium (Porcine) (Heparin Injection (Vial) 5,000 Unit/Ml Vial) 5,000 unit SC Q12 [facility] Last Admin: 04/19/20 09:25 Dose: 5,000 unit Documented by: Hydroxyzine Pamoate (Hydroxyzine [place] 25 Mg Capsule) 50 mg PO Q8H PRN PRN PRN Reason: Anxiety/allergies Last Admin: 04/19/20 09:36 Dose: 50 mg Documented by: Vancomycin IV Pharmacy to Dose (1 ea/ Sodium Chloride) 500 mls @ 250 mls/hr IV X1 PRN; Protocol PRN Reason: Rx to Dose Sodium Chloride () 250 mls @ 15 mls/hr IV .[id number] PRN PRN Reason: Additional IVPB Infusion Last Infusion: 04/18/20 22:53 Dose: Infused Documented by: Piperacillin Sod/Tazobactam (Sod 3.375 gm/ Sodium Chloride) 50 mls @ 12.5 mls/hr IV Q8 [facility] Last Infusion: 04/19/20 09:25 Dose: Infused Documented by: Sodium Chloride () 250 mls @ 15 mls/hr IV .[id number] PRN PRN Reason: Saline Flush Last Infusion: 04/19/20 05:25 Dose: 0 mls/hr Documented by: Sodium Chloride () 250 mls @ 15 mls/hr IV .[id number] PRN PRN Reason: Additional IVPB Infusion Vancomycin HCl (Vancomycin) 1,000 mg in 200 mls @ 200 mls/hr IV Q24H [facility] Last Infusion: 04/18/20 20:26 Dose: Infused Documented by: Insulin Glargine (Insulin Glargine 100 Units/Ml Pen) 36 units SC BID [facility] Last Admin: 04/19/20 12:06 Dose: Not Given Documented by: Insulin Human Lispro (Insulin Lispro 100 Unit/Ml Insuln.Pen) 0 unit SC ACHS [facility]; Protocol Last Admin: 04/19/20 12:05 Dose: 2 units Documented by: Isosorbide Mononitrate (Isosorbide Mononitrate 60 Mg Tablet) 60 mg PO DAILY [facility] Last Admin: 04/19/20 09:25 Dose: 60 mg Documented by: Isosorbide Mononitrate (Isosorbide Mononitrate 60 Mg Tablet) 120 mg PO QHS [facility] Last Admin: 04/18/20 22:07 Dose: 120 mg Documented by: Levothyroxine Sodium (Levothyroxine 75 Mcg Tablet) 75 mcg PO QHS [facility] Last Admin: 04/18/20 22:07 Dose: 75 mcg Documented by: Loratadine (Loratadine 10 Mg Tablet) 10 mg PO DAILY [facility] Last Admin: 04/19/20 09:25 Dose: 10 mg Documented by: Melatonin (Melatonin 10 Mg Tablet) 10 mg PO QHS [facility] Last Admin: 04/18/20 22:07 Dose: 10 mg Documented by: Morphine Sulfate (Morphine 2 Mg/Ml Syringe) 2 - 4 mg IV Q3H PRN PRN PRN Reason: Pain Score 6-10 Last Admin: 04/19/20 09:36 Dose: 2 mg Documented by: Ondansetron HCl (Ondansetron 4 Mg/2 Ml Vial) 4 mg IV Q8H PRN PRN PRN Reason: NAUSEA/VOMITING Pantoprazole Sodium (Pantoprazole Sodium 20 Mg Tablet) 20 mg PO DAILY [facility] Last Admin: 04/19/20 09:25 Dose: 20 mg Documented by: Pravastatin Sodium (Pravastatin 40 Mg Tablet) 40 mg PO QHS [facility] Last Admin: 04/18/20 22:08 Dose: 40 mg Documented by: Quetiapine Fumarate (Quetiapine 100 Mg Tablet) 300 mg PO QHS [facility] Last Admin: 04/18/20 22:06 Dose: 300 mg Documented by: Sodium Chloride (0.9% Saline Lock 10 Ml Syringe) 10 - 40 ml IV UD PRN PRN Reason: SALINE FLUSH Last Admin: 04/18/20 06:46 Dose: 10 ml Documented by: Sodium Chloride (0.9% Saline Lock 10 Ml Syringe) 10 - 40 ml IV UD PRN PRN Reason: SALINE FLUSH Sodium Hypochlorite (Dakin's N[place]omi Half Strength (=0.25%)) 1 applic TOPICAL DAILY [facility]; Protocol Last Admin: 04/19/20 09:40 Dose: 1 applicatio Documented by: Trazodone HCl (Trazodone 50 Mg Tablet) 50 mg PO QHS [facility] Last Admin: 04/18/20 22:06 Dose: 50 mg Documented by: Medical Necessity - Tobacco Use Smoking Status: Never smoker Assessment/Plan All Active Problems (Last Reviewed 04/16/20 @ 15:[address] Judson Massey MD) Cellulitis of left lower limb (Acute) Infection of left foot (Acute) Nonhealing surgical wound (Acute) Ulcer of right foot with necrosis of bone (Resolved) Chest pain (Acute) 1. CAD with history of CABG and stents- Prior heart cath November 2018 which demonstrated mid RCA lesion 65% stenosis, FFR was done with no PCI. Stress echo June 2019 negative for ischemia. Continue medical management including aspirin, Plavix, carvedilol, statin, isosorbide. Follows with Dr. Perez. Okay to resume aspirin, Plavix per podiatry. 2. Recurrent nonhealing left foot ulcer with prior Charcot deformity-podiatry primary. 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 On IV vancomycin and IV Zosyn with plan for stop date 04/29/2020 per ID recommendations. PICC line placement pending. Patient underwent incision and drainage left foot with widespread debridement of nonviable tissue 04/15/2020. Cultures preliminary growing multiple organisms including strep, Pseudomonas and staph. Nonweightbearing left lower extremity. ID following. TCU at discharge. Continue wound care as ordered. 3. CARLOS on chronic kidney disease stage III-improved with IV fluids. Trend BMP. 4. Type 2 diabetes mellitus- Continue home insulin regimen. Accu-Cheks with sliding scale insulin. Hemoglobin A1c January 2020 7.8%. 5. Hypertension-stable, continue Norvasc, Coreg, nitrate. Will resume lisinopril. 6. GERD-continue PPI. 7. Hypothyroidism-continue Synthroid. 8. PVD-continue aspirin, Plavix, statin. 9. Acute blood loss anemia on chronic microcytic anemia-blood loss anemia as expected outcome related to #2/incision and drainage. Previous iron studies 2016 consistent with iron deficiency. Repeat iron studies again showed significant iron deficiency. IV iron x3 doses. Hemoglobin trending up. Trend CBC at TCU and begin oral iron supplementation. 10. Anxiety-patient requesting increase in hydroxyzine. Also requesting home CBD oil regimen however per pharmacy this is not permissible per policy. DVT prophylaxis-SCDs, subcu heparin Discharge planning: Okay for discharge to TCU following PICC line placement from hospitalist standpoint. Resume home medications with addition of iron supplementation. This patient was seen by CLIFFORD Grayson under the supervision of Dr. Hernandez. <Con Hernandez - Last Filed: 04/19/20 15:05> - Physical Exam Vitals/I&O's: Vital Signs Temp Pulse Resp BP Pulse Ox 36.7 C 77 18 150/50 H 97 04/19/20 09:30 04/19/20 09:30 04/19/20 09:30 04/19/20 09:30 04/19/20 09:30 Oxygen Flow Rate (L/min) 3 Oxygen Delivery Method Room Air Weight: 86.183 kg Body Mass Index (BMI) 32.5 Finger Stick Blood Glucose 193 Intake and Output for Last 24 Hours 04/17/20 04/18/20 04/19/20 23:59 23:59 23:59 Intake Total 2680 / 2680 699 / 699 360.00 / 360.00 Output Total / Balance 2680 / 2678 697 / 697 360.00 / 360.00 General: Alert, Cooperative HEENT: Atraumatic, Normocephalic Neck: Supple, Negative Carotid Bruits Lungs: Clear to auscultation, Normal air movement Cardiovascular: Regular rate, No murmurs Abdomen: Bowel Sounds Present, Soft, Non Tender, Non-Distended Extremities: No edema, Capillary Refill Less than 3 Seconds Skin: - Musculoskeletal: No Tenderness to Palpation of Joints or Extremities Neurological: Cranial nerves II-XII grossly intact, Neuro grossly intact Psych/Mental Status: Normal Affect, Appropriate Microbiology Past 72 Hours 04/15/20 15:16 Other - Left Foot Gram Stain - Final 04/15/20 15:16 Other - Left Foot Wound Culture - Final Streptococcus mitis/ oralis Pseudomonas aeroginosa Staphylococcus epidermidis#2 04/15/20 15:16 Other - Left Foot Anaerobic Culture - Preliminary Checking for anaerobes, further studies to follow. 04/15/20 10:00 Wound Abcess - Left Foot Gram Stain - Final 04/15/20 10:00 Wound Abcess - Left Foot Wound Culture - Final Streptococcus mitis/ oralis Staphylococcus epidermidis Pseudomonas aeroginosa Enterococcus faecalis 04/15/20 10:00 Wound Abcess - Left Foot Anaerobic Culture - Preliminary Checking for anaerobes, further studies to follow. 04/15/20 15:16 Other - Left Foot Gram Stain - Final 04/15/20 15:16 Other - Left Foot Wound Culture - Final Streptococcus mitis/ oralis Corynebacterium jeikeium Staphylococcus epidermidis Enterococcus faecalis Pseudomonas aeroginosa 04/16/20 17:18 Blood Culture (Wb) - Right Hand Blood Culture - Preliminary No growth in 48 hours. 04/16/20 17:09 Blood Culture (Wb) - Right Forearm Blood Culture - Preliminary No growth in 48 hours. 04/18/20 16:15 Stool C. difficile DNA Amplification - Final Laboratory Results 04/18/20 13:50: Vitamin B12 > 2000 H 04/18/20 13:50: Iron 14 L, TIBC 334, Iron Saturation 4.2 L, Ferritin 20 04/18/20 13:50: RBC Folate Hemolysate Pending, RBC Folate Pending, Hematocrit Pending 04/18/20 16:25: POC Glucose 174 H 04/18/20 21:53: POC Glucose 193 H 04/19/20 05:54: WBC 4.5, RBC 3.37 L, Hgb 7.8 L, Hct 26.8 L, MCV 79.5 L, MCH 23.1 L, MCHC 29.1 L, RDW Std Deviation 51.1 H, RDW Coeff of Marco 17.9 H, Plt Count 223, MPV 8.8 04/19/20 05:54: Sodium 143, Potassium 3.6, Chloride 115 H, Carbon Dioxide 23.0, Anion Gap 5, BUN 12, Creatinine 1.28 H, Estim Creat Clear Calc 34.31, Est GFR (MDRD) Af Amer 53 L, Est GFR (MDRD) Non-Af 44 L, BUN/Creatinine Ratio 9.4 L, Glucose 76, Calcium 8.0 L 04/19/20 06:39: POC Glucose 78 04/19/20 12:03: POC Glucose 175 H Current Medications Acetaminophen (Acetaminophen 325 Mg Tablet) 650 mg PO Q6H PRN PRN PRN Reason: Pain Score 1-10 Last Admin: 04/19/20 14:05 Dose: 650 mg Documented by: Allopurinol (Allopurinol 100 Mg Tablet) 100 mg PO DAILY [facility] Last Admin: 04/19/20 09:25 Dose: 100 mg Documented by: Alprazolam (Alprazolam 0.25 Mg Tablet) 0.25 mg PO BID PRN PRN PRN Reason: ANXIETY Last Admin: 04/19/20 14:05 Dose: 0.25 mg Documented by: Amlodipine Besylate (Amlodipine 5 Mg Tablet) 5 mg PO DAILY [facility] Last Admin: 04/19/20 09:25 Dose: 5 mg Documented by: Aspirin (Aspirin E.C. 81 Mg Tablet) [facility] Last Admin: 04/19/20 09:25 Dose: 81 mg Documented by: Calamine/Phenol (Menthol/Lanolin/Calamine/Znox 113 Gm Tube) 1 applic TOPICAL TID [facility]; Protocol Last Admin: 04/19/20 14:02 Dose: 1 applicatio Documented by: Calcium Carbonate (Calcium Carbonate 500 Mg Tablet) 500 mg PO BIDCM [facility] Last Admin: 04/19/20 09:25 Dose: 500 mg Documented by: Carvedilol (Carvedilol 25 Mg Tablet) 25 mg PO BID [facility] Last Admin: 04/19/20 09:25 Dose: 25 mg Documented by: Clopidogrel Bisulfate (Clopidogrel Bisulfate 75 Mg Tablet) 75 mg PO DAILY [facility] Last Admin: 04/19/20 09:25 Dose: 75 mg Documented by: Dextrose (Dextrose 50%-Water 25 Gm/50 Ml Disp.Syrin) 0 gm IV X1 PRN; Protocol PRN Reason: Hypoglycemia Docusate Sodium (Docusate Sodium 100 Mg Capsule) 100 mg PO DAILY [facility] Last Admin: 04/19/20 09:26 Dose: Not Given Documented by: Duloxetine HCl (Duloxetine Hcl 30 Mg Capsule) 30 mg PO QHS [facility] Last Admin: 04/18/20 22:07 Dose: 30 mg Documented by: Ferrous Sulfate (Ferrous Sulfate 325 Mg Tablet) 325 mg PO 1200,1700 [facility] Glucagon (Glucagon 1 Mg/Ml Syringe) 1 mg IM .X1 PRN PRN Reason: Hypoglycemia Heparin Sodium (Porcine) (Heparin Injection (Vial) 5,000 Unit/Ml Vial) 5,000 unit SC Q12 [facility] Last Admin: 04/19/20 09:25 Dose: 5,000 unit Documented by: Hydroxyzine Pamoate (Hydroxyzine [place] 25 Mg Capsule) 50 mg PO Q8H PRN PRN PRN Reason: Anxiety/allergies Last Admin: 04/19/20 09:36 Dose: 50 mg Documented by: Vancomycin IV Pharmacy to Dose (1 ea/ Sodium Chloride) 500 mls @ 250 mls/hr IV X1 PRN; Protocol PRN Reason: Rx to Dose Sodium Chloride () 250 mls @ 15 mls/hr IV .[id number] PRN PRN Reason: Additional IVPB Infusion Last Infusion: 04/18/20 22:53 Dose: Infused Documented by: Piperacillin Sod/Tazobactam (Sod 3.375 gm/ Sodium Chloride) 50 mls @ 12.5 mls/hr IV Q8 [facility] Last Infusion: 04/19/20 09:25 Dose: Infused Documented by: Sodium Chloride () 250 mls @ 15 mls/hr IV .[id number] PRN PRN Reason: Saline Flush Last Infusion: 04/19/20 05:25 Dose: 0 mls/hr Documented by: Sodium Chloride () 250 mls @ 15 mls/hr IV .[id number] PRN PRN Reason: Additional IVPB Infusion Vancomycin HCl (Vancomycin) 1,000 mg in 200 mls @ 200 mls/hr IV Q24H [facility] Last Infusion: 04/18/20 20:26 Dose: Infused Documented by: Insulin Glargine (Insulin Glargine 100 Units/Ml Pen) 36 units SC BID [facility] Last Admin: 04/19/20 12:06 Dose: Not Given Documented by: Insulin Human Lispro (Insulin Lispro 100 Unit/Ml Insuln.Pen) 0 unit SC ACHS [facility]; Protocol Last Admin: 04/19/20 12:05 Dose: 2 units Documented by: Isosorbide Mononitrate (Isosorbide Mononitrate 60 Mg Tablet) 60 mg PO DAILY [facility] Last Admin: 04/19/20 09:25 Dose: 60 mg Documented by: Isosorbide Mononitrate (Isosorbide Mononitrate 60 Mg Tablet) 120 mg PO QHS [facility] Last Admin: 04/18/20 22:07 Dose: 120 mg Documented by: Levothyroxine Sodium (Levothyroxine 75 Mcg Tablet) 75 mcg PO QHS [facility] Last Admin: 04/18/20 22:07 Dose: 75 mcg Documented by: Lisinopril (Lisinopril 10 Mg Tablet) 10 mg PO DAILY [facility] Last Admin: 04/19/20 14:02 Dose: 10 mg Documented by: Loratadine (Loratadine 10 Mg Tablet) 10 mg PO DAILY [facility] Last Admin: 04/19/20 09:25 Dose: 10 mg Documented by: Melatonin (Melatonin 10 Mg Tablet) 10 mg PO QHS [facility] Last Admin: 04/18/20 22:07 Dose: 10 mg Documented by: Morphine Sulfate (Morphine 2 Mg/Ml Syringe) 2 - 4 mg IV Q3H PRN PRN PRN Reason: Pain Score 6-10 Last Admin: 04/19/20 09:36 Dose: 2 mg Documented by: Ondansetron HCl (Ondansetron 4 Mg/2 Ml Vial) 4 mg IV Q8H PRN PRN PRN Reason: NAUSEA/VOMITING Pantoprazole Sodium (Pantoprazole Sodium 20 Mg Tablet) 20 mg PO DAILY [facility] Last Admin: 04/19/20 09:25 Dose: 20 mg Documented by: Pravastatin Sodium (Pravastatin 40 Mg Tablet) 40 mg PO QHS [facility] Last Admin: 04/18/20 22:08 Dose: 40 mg Documented by: Quetiapine Fumarate (Quetiapine 100 Mg Tablet) 300 mg PO QHS [facility] Last Admin: 04/18/20 22:06 Dose: 300 mg Documented by: Sodium Chloride (0.9% Saline Lock 10 Ml Syringe) 10 - 40 ml IV UD PRN PRN Reason: SALINE FLUSH Last Admin: 04/18/20 06:46 Dose: 10 ml Documented by: Sodium Chloride (0.9% Saline Lock 10 Ml Syringe) 10 - 40 ml IV UD PRN PRN Reason: SALINE FLUSH Sodium Hypochlorite (Dakin's [place]omi Half Strength (=0.25%)) 1 applic TOPICAL DAILY [facility]; Protocol Last Admin: 04/19/20 09:40 Dose: 1 applicatio Documented by: Trazodone HCl (Trazodone 50 Mg Tablet) 50 mg PO QHS [facility] Last Admin: 04/18/20 22:06 Dose: 50 mg Documented by: Assessment/Plan Patient seen and examined independently. Data reviewed. I agree with the above note by the nurse practitioner. 1. Left foot ulcer: IV vanc and pip/tazo. PICC line. s/p debridement. 2. CAD: stable 3. CARLOS: resolved. Medically stable for discharge. Inpatient E&M: [id number] [facility] L2
[2020-04-19] MEDS: Lisinopril 10 MG Tablet PO (14:02)
[2020-04-19] MEDS: Acetaminophen 325 MG Tablet 650 MG PO (14:05)
[2020-04-19] MEDS: ALPRAZolam 0.25 MG Tablet PO (14:05)
[2020-04-19 15:00] VITALS: BP 150/60; PULSE 76; RESP 18; TEMP 37; O2SAT 98
--- NOTE | 2020-04-19 16:57 | PCM.DC.POD ---
Discharge Diet: Carb Control Diet Discharge Activity: May Shower - with shower bag to left surgical limb, Use Walker Weight Bearing Status: No weight bearing - left foot Keep extremity elevated above heart level: Left Leg Call your doctor if your incision/area has: Continuous Slow Oozing, Sudden Increased Bleeding, Increased Pain/ Swelling, Increased Redness, Foul Smelling Discharge, Swelling at the incision site Call your doctor if you observe: Fever of 101 or Higher, Calf discomfort, Uncontrolled pain Cleanse incision/area with: Soap & Water, - - change left foot dressing daily with dakin solution and dry gauze, kerlix, shree wrap. Allergies/Adverse Reactions: Allergies doxycycline Allergy (Severe, Verified 04/14/20 14:31) all over body hives and itching atorvastatin calcium [From Lipitor] Allergy (Verified 04/14/20 14:31) Unknown bupropion HCl [From Wellbutrin] Allergy (Verified 04/14/20 14:31) Unknown mannitol [From Reclast] Allergy (Verified 04/14/20 14:31) joint pain, unable to breathe, unable to walk propoxyphene napsylate [From Darvocet-N 100] Allergy (Verified 04/14/20 14:31) Unknown Quinolones Allergy (Verified 04/14/20 14:31) Unknown Tetanus Vaccines and Toxoid [Tetanus Vaccines & Toxoid] Allergy (Verified 04/14/20 14:31) Chest tightness tizanidine Allergy (Verified 04/14/20 14:31) Unknown zoledronic acid [From Reclast] Allergy (Verified 04/14/20 14:31) joint pain,unable to breathe, unaable to walk JOINT PAIN,UNABLE TO BREATHE,UNABLE TO WALK pravastatin Adverse Reaction (Severe, Verified 04/14/20 14:31) Myalgias gemfibrozil Adverse Reaction (Intermediate, Verified 04/14/20 14:31) Unknown NSAIDS (Non-Steroidal Anti-Inflamma Adverse Reaction (Verified 04/14/20 14:31) Other Medications to take at Discharge RX: Levothyroxine Sodium [Levoxyl] 75 mcg PO QHS 03/10/17 RX: Pravastatin Sodium 40 mg PO QHS 03/10/17 amlodipine 5 mg tablet 5 mg PO DAILY tab 05/05/18 glucagon (human recombinant) 1 mg solution for injection 1 mg IM ONCE PRN 11/24/18 RX: Ergocalciferol [Vitamin D] 50,000 unit PO QWEEK 09/21/19 RX: Esomeprazole Magnesium 20 mg PO DAILY 09/21/19 lisinopril 10 mg tablet 10 mg PO DAILY #90 tab 11/03/19 clopidogrel 75 mg tablet 75 mg PO DAILY #90 tab 11/23/19 duloxetine 30 mg capsule,delayed release 30 mg PO QHS cap 01/11/20 fexofenadine 180 mg tablet 180 mg PO DAILY tab 01/12/20 RX: Carvedilol 25 mg PO BID 02/26/20 RX: Hydroxyzine HCl 50 mg PO Q8H PRN PRN 02/26/20 RX: Isosorbide Mononitrate [Isosorbide Mononitrate ER] 60 mg PO .COMPLEX 02/26/20 RX: Nitroglycerin [Nitrolingual [place] ([facility])] 0.4 mg SL PRN PRN 02/26/20 RX: Allopurinol 100 mg PO DAILY 03/17/20 RX: Calcium Citrate 200 mg PO BID #0 03/17/20 RX: L. Acidophilus/L.bulgaricus [Lactobacillus Tablet] 1 tab PO DAILY 03/17/20 insulin detemir U-100 100 unit/mL (3 mL) subcutaneous pen 36 unit SC BID ml 03/24/20 aspirin 81 mg tablet,delayed release 81 mg PO DAILY 04/05/20 cbd 1 dose PO 4X/DAY PRN 04/05/20 cyclobenzaprine 10 mg tablet 5 mg PO TID PRN tab 04/05/20 insulin aspart U-100 100 unit/mL (3 mL) subcutaneous pen 14 unit SC BID ml 04/05/20 ipratropium bromide 0.03 % nasal spray 2 spray INTRANASAL Q6H PRN ml 04/05/20 levomefolate Ca 3 mg-B6 35 mg-meB12 2 mg-algal oil 90.314 mg capsule 1 cap PO Q6H cap 04/05/20 lfcpac-ouqvbloj-kwzaztf 24,000-76,000-120,000 unit capsule,delayed rel 1 cap PO BID cap 04/05/20 morphine 10 mg/5 mL oral solution See Rx Instructions PO Q6H PRN ml 04/05/20 quetiapine 100 mg tablet 300 mg PO QHS tab 04/05/20 Melatonin 5 mg PO 1700 04/15/20 Melatonin 10 mg PO QHS 04/15/20 RX: traZODone [Desyrel] 50 mg PO QHS 04/15/20 RX: Piperacil/Tazobactam [Zosyn] 3.375 gm IV Q8 #30 vial 04/18/20 RX: Vancomycin IV [Vancomycin] 1,000 mg IV Q24H #10 bag 04/18/20 Primary Care Physician: Con Johnson MD [Primary Care Provider] - Test Results: Test results from this visit will be discussed in further detail at your follow-up appointment, if applicable. Please Follow Up With: Clinic,Wound When: Dr. Magana 1 week after discharge from TCU Proposed Discharge Date: 04/19/20
--- NOTE | 2020-04-19 16:59 | PCM.TXEXTCAR ---
- Diet 04/15/20 15:09 Diet: Carbohydrate Controlled Type of Dietary Supplement:: glucerna Diet Comments: 120mL chocolate w/ lunch; Blue at breakfast and dinner - Routine Orders/Code Status Code Status: [facility] - Wound(s) LEFT FOOT Wound Type: Surgical Incision Dressing Change: dakin wet to dry dressing daily mid vertical abd Wound Type: Surgical Incision Dressing Change: reyna and gauze daily left dorsal foot Wound Type: Surgical Incision Dressing Change: Dakins moistened gauze - Therapies Weight Bearing: Non weight bearing Extremity Affected:: Left Lower Physical Therapy: Eval and Treat Occupational Therapy: Eval and Treat - Problem/Diagnosis (1) Cellulitis of left lower limb Status: Resolved (2) Type 2 diabetes mellitus without complication Status: Chronic (3) Charcot's joint of left foot Status: Chronic (4) 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 Comment: Recurrent (5) Infection of left foot Status: Acute - Allergies/Procedures Done in Hospital Allergies/Adverse Reactions: Allergies doxycycline Allergy (Severe, Verified 04/14/20 14:31) all over body hives and itching atorvastatin calcium [From Lipitor] Allergy (Verified 04/14/20 14:31) Unknown bupropion HCl [From Wellbutrin] Allergy (Verified 04/14/20 14:31) Unknown mannitol [From Reclast] Allergy (Verified 04/14/20 14:31) joint pain, unable to breathe, unable to walk propoxyphene napsylate [From Darvocet-N 100] Allergy (Verified 04/14/20 14:31) Unknown Quinolones Allergy (Verified 04/14/20 14:31) Unknown Tetanus Vaccines and Toxoid [Tetanus Vaccines & Toxoid] Allergy (Verified 04/14/20 14:31) Chest tightness tizanidine Allergy (Verified 04/14/20 14:31) Unknown zoledronic acid [From Reclast] Allergy (Verified 04/14/20 14:31) joint pain,unable to breathe, unaable to walk JOINT PAIN,UNABLE TO BREATHE,UNABLE TO WALK pravastatin Adverse Reaction (Severe, Verified 04/14/20 14:31) Myalgias gemfibrozil Adverse Reaction (Intermediate, Verified 04/14/20 14:31) Unknown NSAIDS (Non-Steroidal Anti-Inflamma Adverse Reaction (Verified 04/14/20 14:31) Other Procedures: - - I & D / wide spread debridement left foot - Type of Care/Length of Stay Estimated LOS: Convalescent Care Less Than 30 days Type of Care Needed: Skilled Rehab Potential: Fair Prognosis: Fair - Additional Orders/Day of Discharge Day of Discharge: 04/19/20 - Dietary and Speech Recommendations Dietitian Recommendations/Changes: Will add 120mL chocolate glucerna w/ lunch and Blue BID for wound healing. Continue CHO controlled diet. - Follow Up Care Primary Care Physician: Con Johnson MD [Primary Care Provider] - Please Follow Up With: Clinic,Wound When: Dr. Magana 1 week after discharge from TCU
--- NOTE | 2020-04-19 17:06 | DS.PCM_ITS ---
Discharge Date and Diagnosis - Problem List Patient Problems: Active and Suspected Problems (Last Reviewed 04/16/20 @ 15:[address] Judson Massey MD) Infection of left foot (Acute) Date of Admission: 04/15/20 Date of Discharge: 04/19/20 - Primary Discharge Diagnosis Acute Problems: Active Problems (Last Reviewed 04/16/20 @ 15:[address] Judson Massey MD) Infection of left foot (Acute) Suspected Problems: Left limb threatening diabetic foot infection Remote stable Charcot rocker-bottom foot Uncontrolled diabetes Acute kidney injury - Secondary Discharge Diagnosis Chronic Problems: Chronic Problems (Last Reviewed 04/16/20 @ 15:[address] 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 Hatfield @ [facility]:(Promus Premier 4.0 X 12 mm L2 stent from distal left main into proximal LCX; Promus Premier RX 2.25 X 12 mm L1 stent in distal LCX) 12/03/2018:Triple vessel CAD of the LAD, LCX, RCA Successful PTCA/YASIR mid LCX with a 2.5 x 20 Promus Synergy stent; 85%-->0-%, no dissection. 12/24/18:FFR of RCA=0.97, negative, left for medical managemen History of coronary artery bypass graft (Chronic) CABG X 3 vessels [facility]:DANIEL to LAD, reverse SVG to dx and to 2nd OM per Dr. Borjas @ [facility] 09/09/2014 Atherosclerotic heart disease of [place] coronary artery without angina pectoris (Chronic) CABG X 3 vessels [facility]: DANIEL to LAD, reverse SVG to dx and to 2nd OM per Dr. Borjas @ [facility] 09/09/2014; PTCA/YASIR to Left main, LAD, and OM1 per Dr. Hatfield 12/21/2014; History of stroke (Chronic) Carotid artery disease (Chronic) Peripheral vascular disease (Chronic) Hyperlipidemia (Chronic) Coronary artery disease (Chronic) Hypothyroidism (Chronic) Iron deficiency anemia (Chronic) GERD (gastroesophageal reflux disease) (Chronic) Hospital Course and Treatment Imaging Results: Preoperative left foot x-rays taken [facility] on 04-15-2020 (AP, lateral, oblique) and ankle (AP, mortise, lateral): No acute fracture dislocation. Unchanged Charcot rocker-bottom foot deformity noted. There is new soft tissue emphysema to the lateral plantar foot that does not appear to involve the toes or hindfoot or ankle Intraoperative left foot x-rays fluoroscopy: No acute injuries Postoperative left foot x-rays 04-16-2020: No acute injuries. Air is noted on x-ray with significant reduction in preoperative soft tissue emphysema and is consistent with widespread debridement and I&D site Operations: - - Widespread debridement left foot with drainage plantar and dorsal lateral Procedures: PICC line placement Summary of Care Provided: The patient is a 74 year old F was admitted on 04-15-2024 emergent drainage and debridement of left foot infection. She underwent operative intervention and was further admitted for medical management and IV antibiotics. She had intraoperative cultures taken in surgery and continued on broad-spectrum antibiotics. Over the course of her hospital stay she appeared of stabilized with resolution of fever, reduction in leukocytosis, resolution of acute kidney injury and reduced foot pain. There has been no purulence or further necrosis of the left foot and she has been undergoing daily foot dressing changes and serial irrigations bedside. She is stabilized from a podiatric and medical standpoint and qualified for senior care facility placement at the transitional care unit. She will have continued IV antibiotics under the management of infectious disease and undergo physical therapy to maintain a nonweightbearing status to left lower extremity. Patient Problems: Active and Suspected Problems (Last Reviewed 04/16/20 @ 15:[address] Judsno Massey MD) Infection of left foot (Acute) - Physical Exam Vitals/I&O's: Vital Signs Temp Pulse Resp BP Pulse Ox 98.0 F 77 18 150/50 H 97 04/19/20 09:30 04/19/20 09:30 04/19/20 09:30 04/19/20 09:30 04/19/20 09:30 Oxygen Flow Rate (L/min) 3 Oxygen Delivery Method Room Air Weight: 86.183 kg Body Mass Index (BMI) 32.5 Finger Stick Blood Glucose 193 Intake and Output for Last 24 Hours 04/17/20 04/18/20 04/19/20 23:59 23:59 23:59 Intake Total 2680 / 2680 699 / 699 360.00 / 360.00 Output Total 2 / 2 Balance 2680 / 2678 697 / 697 360.00 / 360.00 General: Alert, Oriented x3, Cooperative HEENT: Atraumatic Extremities: Capillary Refill Less than 3 Seconds, No Calf Tenderness, Diminished Peripheral Pulses, Edema Skin: Ulcer/ Wound - Widespread debridement plantar left foot with deep tissue exposed without purulence erythema or streaking. Her skin is atrophic and hairless. There is also drainage site to the dorsal lateral forefoot as well. Musculoskeletal: Muscle Wasting, Tenderness, - - Charcot stable foot left Neurological: - - Lack of normal epicritic sensation light touch Psych/Mental Status: Normal Affect, Appropriate, Anxious Microbiology Past 72 Hours 04/15/20 15:16 Other - Left Foot Gram Stain - Final 04/15/20 15:16 Other - Left Foot Wound Culture - Final Streptococcus mitis/ oralis Pseudomonas aeroginosa Staphylococcus epidermidis#2 04/15/20 15:16 Other - Left Foot Anaerobic Culture - Preliminary Checking for anaerobes, further studies to follow. 04/15/20 10:00 Wound Abcess - Left Foot Gram Stain - Final 04/15/20 10:00 Wound Abcess - Left Foot Wound Culture - Final Streptococcus mitis/ oralis Staphylococcus epidermidis Pseudomonas aeroginosa Enterococcus faecalis 04/15/20 10:00 Wound Abcess - Left Foot Anaerobic Culture - Preliminary Checking for anaerobes, further studies to follow. 04/15/20 15:16 Other - Left Foot Gram Stain - Final 04/15/20 15:16 Other - Left Foot Wound Culture - Final Streptococcus mitis/ oralis Corynebacterium jeikeium Staphylococcus epidermidis Enterococcus faecalis Pseudomonas aeroginosa 04/16/20 17:18 Blood Culture (Wb) - Right Hand Blood Culture - Preliminary No growth in 48 hours. 04/16/20 17:09 Blood Culture (Wb) - Right Forearm Blood Culture - Preliminary No growth in 48 hours. 04/18/20 16:15 Stool C. difficile DNA Amplification - Final Laboratory Results 04/18/20 13:50: Vitamin B12 > 2000 H 04/18/20 21:53: POC Glucose 193 H 04/19/20 05:54: WBC 4.5, RBC 3.37 L, Hgb 7.8 L, Hct 26.8 L, MCV 79.5 L, MCH 23.1 L, MCHC 29.1 L, RDW Std Deviation 51.1 H, RDW Coeff of Marco 17.9 H, Plt Count 223, MPV 8.8 04/19/20 05:54: Sodium 143, Potassium 3.6, Chloride 115 H, Carbon Dioxide 23.0, Anion Gap 5, BUN 12, Creatinine 1.28 H, Estim Creat Clear Calc 34.31, Est GFR (MDRD) Af Amer 53 L, Est GFR (MDRD) Non-Af 44 L, BUN/Creatinine Ratio 9.4 L, Glucose 76, Calcium 8.0 L 04/19/20 06:39: POC Glucose 78 04/19/20 12:03: POC Glucose 175 H Current Medications Acetaminophen (Acetaminophen 325 Mg Tablet) 650 mg PO Q6H PRN PRN PRN Reason: Pain Score 1-10 Last Admin: 04/19/20 14:05 Dose: 650 mg Documented by: Allopurinol (Allopurinol 100 Mg Tablet) 100 mg PO DAILY [facility] Last Admin: 04/19/20 09:25 Dose: 100 mg Documented by: Alprazolam (Alprazolam 0.25 Mg Tablet) 0.25 mg PO BID PRN PRN PRN Reason: ANXIETY Last Admin: 04/19/20 14:05 Dose: 0.25 mg Documented by: Amlodipine Besylate (Amlodipine 5 Mg Tablet) 5 mg PO DAILY [facility] Last Admin: 04/19/20 09:25 Dose: 5 mg Documented by: Aspirin (Aspirin E.C. 81 Mg Tablet) [facility] Last Admin: 04/19/20 09:25 Dose: 81 mg Documented by: Calamine/Phenol (Menthol/Lanolin/Calamine/Znox 113 Gm Tube) 1 applic TOPICAL TID [facility]; Protocol Last Admin: 04/19/20 14:02 Dose: 1 applicatio Documented by: Calcium Carbonate (Calcium Carbonate 500 Mg Tablet) [facility] Last Admin: 04/19/20 09:25 Dose: 500 mg Documented by: Carvedilol (Carvedilol 25 Mg Tablet) 25 mg PO BID [facility] Last Admin: 04/19/20 09:25 Dose: 25 mg Documented by: Clopidogrel Bisulfate (Clopidogrel Bisulfate 75 Mg Tablet) 75 mg PO DAILY [facility] Last Admin: 04/19/20 09:25 Dose: 75 mg Documented by: Dextrose (Dextrose 50%-Water 25 Gm/50 Ml Disp.Syrin) 0 gm IV X1 PRN; Protocol PRN Reason: Hypoglycemia Docusate Sodium (Docusate Sodium 100 Mg Capsule) 100 mg PO DAILY [facility] Last Admin: 04/19/20 09:26 Dose: Not Given Documented by: Duloxetine HCl (Duloxetine Hcl 30 Mg Capsule) 30 mg PO QHS [facility] Last Admin: 04/18/20 22:07 Dose: 30 mg Documented by: Ferrous Sulfate (Ferrous Sulfate 325 Mg Tablet) 325 mg PO 1200,1700 [facility] Glucagon (Glucagon 1 Mg/Ml Syringe) 1 mg IM .X1 PRN PRN Reason: Hypoglycemia Heparin Sodium (Porcine) (Heparin Injection (Vial) 5,000 Unit/Ml Vial) 5,000 unit SC Q12 [facility] Last Admin: 04/19/20 09:25 Dose: 5,000 unit Documented by: Hydroxyzine Pamoate (Hydroxyzine [place] 25 Mg Capsule) 50 mg PO Q8H PRN PRN PRN Reason: Anxiety/allergies Last Admin: 04/19/20 09:36 Dose: 50 mg Documented by: Vancomycin IV Pharmacy to Dose (1 ea/ Sodium Chloride) 500 mls @ 250 mls/hr IV X1 PRN; Protocol PRN Reason: Rx to Dose Sodium Chloride () 250 mls @ 15 mls/hr IV .[id number] PRN PRN Reason: Additional IVPB Infusion Last Infusion: 04/18/20 22:53 Dose: Infused Documented by: Piperacillin Sod/Tazobactam (Sod 3.375 gm/ Sodium Chloride) 50 mls @ 12.5 mls/hr IV Q8 [facility] Last Infusion: 04/19/20 09:25 Dose: Infused Documented by: Sodium Chloride () 250 mls @ 15 mls/hr IV .[id number] PRN PRN Reason: Saline Flush Last Infusion: 04/19/20 05:25 Dose: 0 mls/hr Documented by: Sodium Chloride () 250 mls @ 15 mls/hr IV .[id number] PRN PRN Reason: Additional IVPB Infusion Vancomycin HCl (Vancomycin) 1,000 mg in 200 mls @ 200 mls/hr IV Q24H [facility] Last Infusion: 04/18/20 20:26 Dose: Infused Documented by: Insulin Glargine (Insulin Glargine 100 Units/Ml Pen) 36 units SC BID [facility] Last Admin: 04/19/20 12:06 Dose: Not Given Documented by: Insulin Human Lispro (Insulin Lispro 100 Unit/Ml Insuln.Pen) 0 unit SC ACHS [facility]; Protocol Last Admin: 04/19/20 12:05 Dose: 2 units Documented by: Isosorbide Mononitrate (Isosorbide Mononitrate 60 Mg Tablet) 60 mg PO DAILY [facility] Last Admin: 04/19/20 09:25 Dose: 60 mg Documented by: Isosorbide Mononitrate (Isosorbide Mononitrate 60 Mg Tablet) 120 mg PO QHS [facility] Last Admin: 04/18/20 22:07 Dose: 120 mg Documented by: Levothyroxine Sodium (Levothyroxine 75 Mcg Tablet) 75 mcg PO QHS [facility] Last Admin: 04/18/20 22:07 Dose: 75 mcg Documented by: Lisinopril (Lisinopril 10 Mg Tablet) 10 mg PO DAILY [facility] Last Admin: 04/19/20 14:02 Dose: 10 mg Documented by: Loratadine (Loratadine 10 Mg Tablet) 10 mg PO DAILY [facility] Last Admin: 04/19/20 09:25 Dose: 10 mg Documented by: Melatonin (Melatonin 10 Mg Tablet) 10 mg PO QHS [facility] Last Admin: 04/18/20 22:07 Dose: 10 mg Documented by: Morphine Sulfate (Morphine 2 Mg/Ml Syringe) 2 - 4 mg IV Q3H PRN PRN PRN Reason: Pain Score 6-10 Last Admin: 04/19/20 09:36 Dose: 2 mg Documented by: Ondansetron HCl (Ondansetron 4 Mg/2 Ml Vial) 4 mg IV Q8H PRN PRN PRN Reason: NAUSEA/VOMITING Pantoprazole Sodium (Pantoprazole Sodium 20 Mg Tablet) 20 mg PO DAILY [facility] Last Admin: 04/19/20 09:25 Dose: 20 mg Documented by: Pravastatin Sodium (Pravastatin 40 Mg Tablet) 40 mg PO QHS [facility] Last Admin: 04/18/20 22:08 Dose: 40 mg Documented by: Quetiapine Fumarate (Quetiapine 100 Mg Tablet) 300 mg PO QHS [facility] Last Admin: 04/18/20 22:06 Dose: 300 mg Documented by: Sodium Chloride (0.9% Saline Lock 10 Ml Syringe) 10 - 40 ml IV UD PRN PRN Reason: SALINE FLUSH Last Admin: 04/18/20 06:46 Dose: 10 ml Documented by: Sodium Chloride (0.9% Saline Lock 10 Ml Syringe) 10 - 40 ml IV UD PRN PRN Reason: SALINE FLUSH Sodium Hypochlorite (Dakin's [place] Half Strength (=0.25%)) 1 applic TOPICAL DAILY [facility]; Protocol Last Admin: 04/19/20 09:40 Dose: 1 applicatio Documented by: Trazodone HCl (Trazodone 50 Mg Tablet) 50 mg PO QHS [facility] Last Admin: 04/18/20 22:06 Dose: 50 mg Documented by: Discharge Diet: Carb Control Diet Discharge Activity: May Shower - with shower bag to left surgical limb, Use Walker Weight Bearing Status: No weight bearing - left foot Keep extremity elevated above heart level: Left Leg Call your doctor if your incision/area has: Continuous Slow Oozing, Sudden Increased Bleeding, Increased Pain/ Swelling, Increased Redness, Foul Smelling Discharge, Swelling at the incision site Call your doctor if you observe: Fever of 101 or Higher, Calf discomfort, Uncontrolled pain Cleanse incision/area with: Soap & Water, - - change left foot dressing daily with dakin solution and dry gauze, kerlix, shree wrap. Additional Dressing/Incision Instructions:: no soaking Home Medications: Medications to take at Discharge Levothyroxine Sodium [Levoxyl] 75 mcg PO QHS 03/10/17 Pravastatin Sodium 40 mg PO QHS 03/10/17 amlodipine 5 mg tablet 5 mg PO DAILY tab 05/05/18 glucagon (human recombinant) 1 mg solution for injection 1 mg IM ONCE PRN 11/24/18 Ergocalciferol [Vitamin D] 50,000 unit PO QWEEK 09/21/19 Esomeprazole Magnesium 20 mg PO DAILY 09/21/19 lisinopril 10 mg tablet 10 mg PO DAILY #90 tab 11/03/19 clopidogrel 75 mg tablet 75 mg PO DAILY #90 tab 11/23/19 duloxetine 30 mg capsule,delayed release 30 mg PO QHS cap 01/11/20 fexofenadine 180 mg tablet 180 mg PO DAILY tab 01/12/20 Carvedilol 25 mg PO BID 02/26/20 Hydroxyzine HCl 50 mg PO Q8H PRN PRN 02/26/20 Isosorbide Mononitrate [Isosorbide Mononitrate ER] 60 mg PO .COMPLEX 02/26/20 Nitroglycerin [Nitrolingual [place] ([facility])] 0.4 mg SL PRN PRN 02/26/20 Allopurinol 100 mg PO DAILY 03/17/20 Calcium Citrate 200 mg PO BID #0 03/17/20 L. Acidophilus/L.bulgaricus [Lactobacillus Tablet] 1 tab PO DAILY 03/17/20 insulin detemir U-100 100 unit/mL (3 mL) subcutaneous pen 36 unit SC BID ml 03/24/20 aspirin 81 mg tablet,delayed release 81 mg PO DAILY 04/05/20 cbd 1 dose PO 4X/DAY PRN 04/05/20 cyclobenzaprine 10 mg tablet 5 mg PO TID PRN tab 04/05/20 insulin aspart U-100 100 unit/mL (3 mL) subcutaneous pen 14 unit SC BID ml 04/05/20 ipratropium bromide 0.03 % nasal spray 2 spray INTRANASAL Q6H PRN ml 04/05/20 levomefolate Ca 3 mg-B6 35 mg-meB12 2 mg-algal oil 90.314 mg capsule 1 cap PO Q6 H cap 04/05/20 gwvryo-ylgiryap-anedlah 24,000-76,000-120,000 unit capsule,delayed rel 1 cap PO BID cap 04/05/20 morphine 10 mg/5 mL oral solution See Rx Instructions PO Q6H PRN ml 04/05/20 quetiapine 100 mg tablet 300 mg PO QHS tab 04/05/20 Melatonin 5 mg PO 1700 04/15/20 Melatonin 10 mg PO QHS 04/15/20 traZODone [Desyrel] 50 mg PO QHS 04/15/20 Piperacil/Tazobactam [Zosyn] 3.375 gm IV Q8 #30 vial 04/18/20 Vancomycin IV [Vancomycin] 1,000 mg IV Q24H #10 bag 04/18/20 Primary Care Physician: Con Johnson MD [Primary Care Provider] - Please Follow Up With: Clinic,Wound When: Dr. Magana 1 week after discharge from TCU Disposition: [facility] facility - transitional care unit at [facility] Minutes spent on discharge:: 25 Patient Condition:: Good Medical Necessity - Tobacco Use Smoking Status: Never smoker Tobacco Use: Non-smoker Meaningful Use Info Meaningful Use Diagnoses (Choose all that apply): None applicable
[2020-04-19] MEDS: Ferrous Sulfate 325 MG Tablet PO (17:39)
[2020-04-19 17:56] LABS: Bedside Glucose 133 mg/dL (70-110)
--- NOTE | 2020-04-19 19:13 | PCM.PROGNOTE ---
Patient Problems: Active and Suspected Problems (Last Reviewed 04/16/20 @ 15:[address] Judson Massey MD) Infection of left foot (Acute) Subjective: Patient planning to go to TCU. Patient relates she is doing well today. No new complaints. - Physical Exam Vitals/I&O's: Vital Signs Temp Pulse Resp BP Pulse Ox 98.6 F 76 18 150/60 H 98 04/19/20 15:00 04/19/20 15:00 04/19/20 15:00 04/19/20 15:00 04/19/20 15:00 Oxygen Flow Rate (L/min) 3 Oxygen Delivery Method Room Air Weight: 86.183 kg Body Mass Index (BMI) 32.5 Finger Stick Blood Glucose 193 Intake and Output for Last 24 Hours 04/17/20 04/18/20 04/19/20 23:59 23:59 23:59 Intake Total 2680 / 2680 699 / 699 360.00 / 360.00 Output Total 2 / 2 Balance 2680 / 2678 697 / 697 360.00 / 360.00 General: Alert, Oriented x3, No apparent distress Extremities: - - Left foot with dressing clean, dry and intact - reviewed wound photo and foot stable, no streaking, no visible abscess, infection much improved. Microbiology Past 72 Hours 04/15/20 15:16 Other - Left Foot Gram Stain - Final 04/15/20 15:16 Other - Left Foot Wound Culture - Final Streptococcus mitis/ oralis Pseudomonas aeroginosa Staphylococcus epidermidis#2 04/15/20 15:16 Other - Left Foot Anaerobic Culture - Preliminary Checking for anaerobes, further studies to follow. 04/15/20 10:00 Wound Abcess - Left Foot Gram Stain - Final 04/15/20 10:00 Wound Abcess - Left Foot Wound Culture - Final Streptococcus mitis/ oralis Staphylococcus epidermidis Pseudomonas aeroginosa Enterococcus faecalis 04/15/20 10:00 Wound Abcess - Left Foot Anaerobic Culture - Preliminary Checking for anaerobes, further studies to follow. 04/15/20 15:16 Other - Left Foot Gram Stain - Final 04/15/20 15:16 Other - Left Foot Wound Culture - Final Streptococcus mitis/ oralis Corynebacterium jeikeium Staphylococcus epidermidis Enterococcus faecalis Pseudomonas aeroginosa 04/16/20 17:18 Blood Culture (Wb) - Right Hand Blood Culture - Preliminary No growth in 48 hours. 04/16/20 17:09 Blood Culture (Wb) - Right Forearm Blood Culture - Preliminary No growth in 48 hours. 04/18/20 16:15 Stool C. difficile DNA Amplification - Final Laboratory Results 04/18/20 13:50: Vitamin B12 > 2000 H 04/18/20 21:53: POC Glucose 193 H 04/19/20 05:54: WBC 4.5, RBC 3.37 L, Hgb 7.8 L, Hct 26.8 L, MCV 79.5 L, MCH 23.1 L, MCHC 29.1 L, RDW Std Deviation 51.1 H, RDW Coeff of Marco 17.9 H, Plt Count 223, MPV 8.8 04/19/20 05:54: Sodium 143, Potassium 3.6, Chloride 115 H, Carbon Dioxide 23.0, Anion Gap 5, BUN 12, Creatinine 1.28 H, Estim Creat Clear Calc 34.31, Est GFR (MDRD) Af Amer 53 L, Est GFR (MDRD) Non-Af 44 L, BUN/Creatinine Ratio 9.4 L, Glucose 76, Calcium 8.0 L 04/19/20 06:39: POC Glucose 78 04/19/20 12:03: POC Glucose 175 H 04/19/20 17:38: POC Glucose 133 H 04/19/20 18:54: Vancomycin Trough Pending Current Medications Acetaminophen (Acetaminophen 325 Mg Tablet) 650 mg PO Q6H PRN PRN PRN Reason: Pain Score 1-10 Last Admin: 04/19/20 14:05 Dose: 650 mg Documented by: Allopurinol (Allopurinol 100 Mg Tablet) 100 mg PO DAILY [facility] Last Admin: 04/19/20 09:25 Dose: 100 mg Documented by: Alprazolam (Alprazolam 0.25 Mg Tablet) 0.25 mg PO BID PRN PRN PRN Reason: ANXIETY Last Admin: 04/19/20 14:05 Dose: 0.25 mg Documented by: Amlodipine Besylate (Amlodipine 5 Mg Tablet) 5 mg PO DAILY [facility] Last Admin: 04/19/20 09:25 Dose: 5 mg Documented by: Aspirin (Aspirin E.C. 81 Mg [facility]t) [facility] Last Admin: 04/19/20 09:25 Dose: 81 mg Documented by: Calamine/Phenol (Menthol/Lanolin/Calamine/Znox 113 Gm Tube) 1 applic TOPICAL TID [facility]; Protocol Last Admin: 04/19/20 14:02 Dose: 1 applicatio Documented by: Calcium Carbonate (Calcium Carbonate 500 Mg Tablet) 500 mg PO BIDCM [facility] Last Admin: 04/19/20 17:43 Dose: 500 mg Documented by: Carvedilol (Carvedilol 25 Mg Tablet) 25 mg PO BID [facility] Last Admin: 04/19/20 09:25 Dose: 25 mg Documented by: Clopidogrel Bisulfate (Clopidogrel Bisulfate 75 Mg Tablet) 75 mg PO DAILY [facility] Last Admin: 04/19/20 09:25 Dose: 75 mg Documented by: Dextrose (Dextrose 50%-Water 25 Gm/50 Ml Disp.Syrin) 0 gm IV X1 PRN; Protocol PRN Reason: Hypoglycemia Docusate Sodium (Docusate Sodium 100 Mg Capsule) 100 mg PO DAILY [facility] Last Admin: 04/19/20 09:26 Dose: Not Given Documented by: Duloxetine HCl (Duloxetine Hcl 30 Mg Capsule) 30 mg PO QHS [facility] Last Admin: 04/18/20 22:07 Dose: 30 mg Documented by: Ferrous Sulfate (Ferrous Sulfate 325 Mg Tablet) 325 mg PO 1200,1700 [facility] Last Admin: 04/19/20 17:39 Dose: 325 mg Documented by: Glucagon (Glucagon 1 Mg/Ml Syringe) 1 mg IM .X1 PRN PRN Reason: Hypoglycemia Heparin Sodium (Porcine) (Heparin Injection (Vial) 5,000 Unit/Ml Vial) 5,000 unit SC Q12 [facility] Last Admin: 04/19/20 09:25 Dose: 5,000 unit Documented by: Hydroxyzine Pamoate (Hydroxyzine [place] 25 Mg Capsule) 50 mg PO Q8H PRN PRN PRN Reason: Anxiety/allergies Last Admin: 04/19/20 09:36 Dose: 50 mg Documented by: Vancomycin IV Pharmacy to Dose (1 ea/ Sodium Chloride) 500 mls @ 250 mls/hr IV X1 PRN; Protocol PRN Reason: Rx to Dose Sodium Chloride () 250 mls @ 15 mls/hr IV .[id number] PRN PRN Reason: Additional IVPB Infusion Last Infusion: 04/18/20 22:53 Dose: Infused Documented by: Piperacillin Sod/Tazobactam (Sod 3.375 gm/ Sodium Chloride) 50 mls @ 12.5 mls/hr IV Q8 [facility] Last Admin: 04/19/20 17:33 Dose: Not Given Documented by: Sodium Chloride () 250 mls @ 15 mls/hr IV .[id number] PRN PRN Reason: Saline Flush Last Infusion: 04/19/20 05:25 Dose: 0 mls/hr Documented by: Sodium Chloride () 250 mls @ 15 mls/hr IV .[id number] PRN PRN Reason: Additional IVPB Infusion Vancomycin HCl (Vancomycin) 1,000 mg in 200 mls @ 200 mls/hr IV Q24H [facility] Last Infusion: 04/18/20 20:26 Dose: Infused Documented by: Insulin Glargine (Insulin Glargine 100 Units/Ml Pen) 36 units SC BID [facility] Last Admin: 04/19/20 12:06 Dose: Not Given Documented by: Insulin Human Lispro (Insulin Lispro 100 Unit/Ml Insuln.Pen) 0 unit SC ACHS [facility]; Protocol Last Admin: 04/19/20 17:39 Dose: Not Given Documented by: Isosorbide Mononitrate (Isosorbide Mononitrate 60 Mg Tablet) 60 mg PO DAILY [facility] Last Admin: 04/19/20 09:25 Dose: 60 mg Documented by: Isosorbide Mononitrate (Isosorbide Mononitrate 60 Mg Tablet) 120 mg PO QHS [facility] Last Admin: 04/18/20 22:07 Dose: 120 mg Documented by: Levothyroxine Sodium (Levothyroxine 75 Mcg Tablet) 75 mcg PO QHS [facility] Last Admin: 04/18/20 22:07 Dose: 75 mcg Documented by: Lisinopril (Lisinopril 10 Mg Tablet) 10 mg PO DAILY [facility] Last Admin: 04/19/20 14:02 Dose: 10 mg Documented by: Loratadine (Loratadine 10 Mg Tablet) 10 mg PO DAILY [facility] Last Admin: 04/19/20 09:25 Dose: 10 mg Documented by: Melatonin (Melatonin 10 Mg Tablet) 10 mg PO QHS [facility] Last Admin: 04/18/20 22:07 Dose: 10 mg Documented by: Morphine Sulfate (Morphine 2 Mg/Ml Syringe) 2 - 4 mg IV Q3H PRN PRN PRN Reason: Pain Score 6-10 Last Admin: 04/19/20 17:39 Dose: 2 mg Documented by: Ondansetron HCl (Ondansetron 4 Mg/2 Ml Vial) 4 mg IV Q8H PRN PRN PRN Reason: NAUSEA/VOMITING Pantoprazole Sodium (Pantoprazole Sodium 20 Mg Tablet) 20 mg PO DAILY [facility] Last Admin: 04/19/20 09:25 Dose: 20 mg Documented by: Pravastatin Sodium (Pravastatin 40 Mg Tablet) 40 mg PO QHS [facility] Last Admin: 04/18/20 22:08 Dose: 40 mg Documented by: Quetiapine Fumarate (Quetiapine 100 Mg Tablet) 300 mg PO QHS [facility] Last Admin: 04/18/20 22:06 Dose: 300 mg Documented by: Sodium Chloride (0.9% Saline Lock 10 Ml Syringe) 10 - 40 ml IV UD PRN PRN Reason: SALINE FLUSH Last Admin: 04/18/20 06:46 Dose: 10 ml Documented by: Sodium Chloride (0.9% Saline Lock 10 Ml Syringe) 10 - 40 ml IV UD PRN PRN Reason: SALINE FLUSH Sodium Hypochlorite (Dakin's [place] Half Strength (=0.25%)) 1 applic TOPICAL DAILY [facility]; Protocol Last Admin: 04/19/20 09:40 Dose: 1 applicatio Documented by: Trazodone HCl (Trazodone 50 Mg Tablet) 50 mg PO QHS [facility] Last Admin: 04/18/20 22:06 Dose: 50 mg Documented by: Medical Necessity - Tobacco Use Smoking Status: Never smoker Tobacco Use: Non-smoker Assessment/Plan All Active Problems (Last Reviewed 04/16/20 @ 15:[address] Judson Massey MD) Cellulitis of left lower limb (Resolved) Infection of left foot (Acute) Nonhealing surgical wound (Acute) Ulcer of right foot with necrosis of bone (Resolved) Chest pain (Acute) -s/p I+D / debridement left foot on 04/15/[address] Magana due to gas / abscess infection -Uncontrolled diabetes with neuropathy -Non acute Charcot midfoot, left -acute kidney injury -Other comorbidities: Coronary artery disease, hypertension, GERD, history of blood clots and history of blood transfusion, history of cerebrovascular accidents, hyperlipidemia, irritable bowel syndrome, history of iron deficiency anemia, obesity, osteoporosis, history of gastric bypass, recent abdominal surgery is noted with delayed healing Continue with daily wet to dry dressing changes to site - dakins soln wet to dry daily. Follow cultures of foot and blood cultures. Polyorganism noted to wound cultures, continue w/ antibiotics per ID/Dr. Webb. No weightbearing left foot, keep foot elevated. DVT Prophylaxis: Pt on subcutaneous Heparin Diabetes and other medical problems: medicine team also following, appreciate assistance.
[2020-04-19] MEDS: Vancomycin IV 1,000 MG/200 ML BAG 200 MG IV (19:36)
--- NOTE | 2020-04-19 19:41 | PCM.RX.CS ---
Consult Pharmacy has been consulted to manage selected antiobiotic: Vancomycin Type of Consult: Follow-up Suspected Infection: Skin/Soft tissue Prior Doses of Antibiotics Received/Current Regimen: current regimen is 1000mg IV q24h Labs: Sodium 143 mmol/L (136-145) 04/19/20 05:54 Potassium 3.6 mmol/L (3.5-5.1) 04/19/20 05:54 Chloride 115 mmol/L (98-107) H 04/19/20 05:54 Carbon Dioxide 23.0 mmol/L (21.0-32.0) 04/19/20 05:54 Anion Gap 5 (5-15) 04/19/20 05:54 BUN 12 mg/dL (7-18) 04/19/20 05:54 Creatinine 1.28 mg/dL (0.55-1.02) H 04/19/20 05:54 Est GFR (MDRD) Af Amer 53 mL/min (>60) L 04/19/20 05:54 Est GFR (MDRD) Non-Af 44 mL/min (>60) L 04/19/20 05:54 BUN/Creatinine Ratio 9.4 RATIO (10-20) L 04/19/20 05:54 Glucose 76 mg/dL (74-106) 04/19/20 05:54 Vancomycin Trough 12.0 ug/mL (5.0-15.0) 04/19/20 18:54 Microbiology: Microbiology 04/15/20 15:16 Other - Left Foot Gram Stain - Final 04/15/20 15:16 Other - Left Foot Wound Culture - Final Streptococcus mitis/ oralis Pseudomonas aeroginosa Staphylococcus epidermidis#2 04/15/20 15:16 Other - Left Foot Anaerobic Culture - Preliminary Checking for anaerobes, further studies to follow. 04/15/20 10:00 Wound Abcess - Left Foot Gram Stain - Final 04/15/20 10:00 Wound Abcess - Left Foot Wound Culture - Final Streptococcus mitis/ oralis Staphylococcus epidermidis Pseudomonas aeroginosa Enterococcus faecalis 04/15/20 10:00 Wound Abcess - Left Foot Anaerobic Culture - Preliminary Checking for anaerobes, further studies to follow. 04/15/20 15:16 Other - Left Foot Gram Stain - Final 04/15/20 15:16 Other - Left Foot Wound Culture - Final Streptococcus mitis/ oralis Corynebacterium jeikeium Staphylococcus epidermidis Enterococcus faecalis Pseudomonas aeroginosa 04/16/20 17:18 Blood Culture (Wb) - Right Hand Blood Culture - Preliminary No growth in 48 hours. 04/16/20 17:09 Blood Culture (Wb) - Right Forearm Blood Culture - Preliminary No growth in 48 hours. 04/18/20 16:15 Stool C. difficile DNA Amplification - Final 04/15/20 Unknown Mucosa - Nose SARS-CoV-2 Antigen (Rapid) - Final Weight used for dosin.2 kg Estimated Creatinine Clearance: 42ml/min Goal Trough: 10-15 mcg/mL Pharmacy Plan for Drug Dosing: The vancomycin trough level taken before this evening's dose came back as 12.0. This is within goal range of 10-15 so will keep current regimen and repeat another trough in 4 days per protocol. The patient's CrCl of 42 ml/min was calculated using an adjusted body weight of 67.3kg. Pharmacy Service will continue to monitor and adjust dosing as required. Follow-Up Labs: Trough Vancomycin Labs to be done on [date and time ordered]: 04/23/20 18:30
[2020-04-19] MEDS: DULoxetine Hcl 30 MG Capsule PO (21:06)
[2020-04-19] MEDS: Isosorbide Mononitrate 60 MG Tablet 120 MG PO (21:06)
[2020-04-19] MEDS: Levothyroxine 75 MCG Tablet PO (21:07)
[2020-04-19] MEDS: MELATONIN 10 MG TABLET PO (21:07)
[2020-04-19] MEDS: Pravastatin 40 MG Tablet PO (21:07)
[2020-04-19 21:31] LABS: Bedside Glucose 149 mg/dL (70-110)
[2020-04-19 21:44] VITALS: BP 162/64; PULSE 66; RESP 16; TEMP 36.6; O2SAT 95
[2020-04-20 20:08] LABS: Folate, Hemolysate Test > 620.0 ng/mL (Not Estab.)
[2020-04-20 20:59] LABS: Folates, RBC Test > 2385 ng/mL (>498)
== END 2020-04-19 21:44 | disposition skilled nursing facility (03) | DRG 982 ==
LOC: ACINP 11:29 → MS3 11:53 → ACINP 04-18 10:54 → MS3 04-18 10:55
PROVIDERS: Nurse Practitioner Family; Admitting Provider Podiatrist; PCP Family Medicine; Referring Provider Podiatrist
PROC: 0JDR0ZZ Extraction of Left Foot Subcutaneous Tissue and Fascia, Open Approach (ICD-10-PCS; principal; 2020-04-15 12:50)
DX: E11.621 Type 2 diabetes mellitus with foot ulcer (principal); T79.7XXA Traumatic subcutaneous emphysema, initial encounter; L03.116 Cellulitis of left lower limb; L02.612 Cutaneous abscess of left foot; D62 Acute posthemorrhagic anemia; L97.522 Non-pressure chronic ulcer of other part of left foot with fat layer exposed; N17.9 Acute kidney failure, unspecified; E11.610 Type 2 diabetes mellitus with diabetic neuropathic arthropathy; E11.51 Type 2 diabetes mellitus with diabetic peripheral angiopathy without gangrene; E11.42 Type 2 diabetes mellitus with diabetic polyneuropathy; E11.65 Type 2 diabetes mellitus with hyperglycemia; E11.22 Type 2 diabetes mellitus with diabetic chronic kidney disease; I12.9 Hypertensive chronic kidney disease with stage 1 through stage 4 chronic kidney disease, or unspecified chronic kidney disease; N18.30 Chronic kidney disease, stage 3 unspecified; D50.9 Iron deficiency anemia, unspecified; K59.00 Constipation, unspecified; I25.10 Atherosclerotic heart disease of native coronary artery without angina pectoris; E78.5 Hyperlipidemia, unspecified; E03.9 Hypothyroidism, unspecified; K21.9 Gastro-esophageal reflux disease without esophagitis; F32.9 Major depressive disorder, single episode, unspecified; F41.9 Anxiety disorder, unspecified; E66.9 Obesity, unspecified; Z68.32 Body mass index [BMI] 32.0-32.9, adult; Z79.4 Long term (current) use of insulin; Z79.02 Long term (current) use of antithrombotics/antiplatelets; Z79.82 Long term (current) use of aspirin; Z79.890 Hormone replacement therapy; Z79.899 Other long term (current) drug therapy; Z78.0 Asymptomatic menopausal state; Z86.718 Personal history of other venous thrombosis and embolism; Z86.73 Personal history of transient ischemic attack (TIA), and cerebral infarction without residual deficits; Z95.5 Presence of coronary angioplasty implant and graft; Z95.1 Presence of aortocoronary bypass graft; Z98.84 Bariatric surgery status
CPT/HCPCS: 11042; 36415; 36569; 73620; 73630; 76000; 80048; 80053; 80202; 82607; 82728; 82747; 82962; 83540; 83550; 83605; 85014; 85025; 85027; 85610; 85652; 86141; 87015; 87040; 87070; 87075; 87077; 87102; 87116; 87186; 87205; 87206; 87426; 87493; 87640; 93005; 97110; 97116; 97163; 97166; 97530; 97535; 99251; J7030; J7040; J7050; J7120; A4216; G0463; J2405; J2916

== ENCOUNTER 2020-04-19 21:50 | Inpatient (IN) | payer MEDICARE, OTHER, SELFPAY ==
[2020-04-15 16:32] VITALS: BMI 32.5
[2020-04-19 22:11] VITALS: BP 175/73; PULSE 64; RESP 16; TEMP 36.1; O2SAT 96
[2020-04-19 22:22] VITALS: BMI 32.4
[2020-04-19 22:29] VITALS: BMI 32.4
--- NOTE | 2020-04-19 23:03 | PCM.HP.STD ---
Problem List (1) Debility Status: Acute (2) Diabetes mellitus type 2 in obese Status: Chronic (3) Depression Status: Chronic (4) Allergic rhinitis Status: Chronic (5) Gout Status: Chronic (6) Muscle spasm Status: Chronic (7) Insomnia Status: Chronic (8) Cellulitis of left lower limb Status: Acute (9) Infection of left foot Status: Acute (10) Vitamin D deficiency Status: Chronic (11) Charcot's joint of left foot Status: Chronic (12) Ulcer of left foot with fat layer exposed Status: Acute Comment: Recurrent (13) Hyperlipidemia Status: Chronic Qualifiers: (14) Coronary artery disease Status: Chronic Qualifiers: (15) Hypothyroidism Status: Chronic Qualifiers: (16) GERD (gastroesophageal reflux disease) Status: Chronic History of Present Illness Date of Admission: 04/19/20 Chief Complaint: Here for rehabilitation, strengthening, intravenous antibiotics, prior to discharge home with . 04/15/20 The patient is a 74 year old Female with below past medical history admitted [facility] directly from Podiatry Office. 04/15/20 EKG normal sinus rhythm, normal EKG. Left foot ulcer secondary to left charcot foot. Worsening pain, redness. Patient also has malaise. X-ray showed gas infection. 04/15/20 Podiatry performed incision, drainage left foot with widespread debridement of non-viable tissue. IV Vancomycin, IV Zosyn for left foot infection pending cultures. 04/16/20 X-ray left foot showed charcot changes, soft tissue swelling, soft tissue gas, focal ulceration plantar surface of foot. 04/17/20 Preliminary cultures growing multiple organisms. 04/18/20 Cultures growing strep, pseudomonas, staph. 04/18/20 Infectious Disease noted cultures growing MRSE x 2, Strep mitis, Pseudomonas Aeruginosa, Corynebacterium, Enterococcus Faecalis, Recommend Vancomycin, Zosyn IV x 2 weeks, stop date 04/29/20. 04/19/20 PICC line placed. 04/19/20 Non weight bearing left lower extremity. 04/19/20 Admit to TCU with debility, here for rehabilitation, strengthening, intravenous antibiotics, prior to discharge home with . Past Medical History Past Medical History (Chronic Problems): Chronic Problems (Last Reviewed 04/16/20 @ 15:[address] Judson Massey MD) Diabetes mellitus type 2 in obese (Chronic) Depression (Chronic) Allergic rhinitis (Chronic) Gout (Chronic) Muscle spasm (Chronic) Insomnia (Chronic) Type 2 diabetes mellitus without complication (Chronic) Obesity (Chronic) Vitamin D deficiency (Chronic) Ulcer of right foot with fat layer exposed (Chronic) Peripheral arterial occlusive disease (Chronic) Charcot's joint of left foot (Chronic) Type 2 diabetes mellitus with diabetic polyneuropathy (Chronic) Ulcer of abdomen wall with fat layer exposed (Chronic) History of CVA (cerebrovascular accident) (Chronic) Stented coronary artery (Chronic 12/03/18) PTCA and YASIR to proximal and distal CX per Dr. Hatfield @ [facility]:(Promus Premier 4.0 X 12 mm L2 stent from distal left main into proximal LCX; Promus Premier RX 2.25 X 12 mm L1 stent in distal LCX) 12/03/2018:Triple vessel CAD of the LAD, LCX, RCA Successful PTCA/YASIR mid LCX with a 2.5 x 20 Promus Synergy stent; 85%-->0-%, no dissection. 12/24/18:FFR of RCA=0.97, negative, left for medical managemen History of coronary artery bypass graft (Chronic) CABG X 3 vessels [facility]:DANIEL to LAD, reverse SVG to dx and to 2nd OM per Dr. Bojras @ [facility] 09/09/2014 Atherosclerotic heart disease of [place] coronary artery without angina pectoris (Chronic) CABG X 3 vessels [facility]: DANIEL to LAD, reverse SVG to dx and to 2nd OM per Dr. Borjas @ [facility] 09/09/2014; PTCA/YASIR to Left main, LAD, and OM1 per Dr. Hatfield 12/21/2014; History of stroke (Chronic) Carotid artery disease (Chronic) Peripheral vascular disease (Chronic) Hyperlipidemia (Chronic) Coronary artery disease (Chronic) Hypothyroidism (Chronic) Iron deficiency anemia (Chronic) GERD (gastroesophageal reflux disease) (Chronic) Medical History: Medical History (Last Reviewed 04/16/20 @ 15:[address] Judson Massey MD) Type 2 diabetes mellitus without complication (Chronic) E11.9 Obesity (Chronic) E66.9 Vitamin D deficiency (Chronic) E55.9 Ulcer of right foot with fat layer exposed (Chronic) L97.512 Ulcer of right foot with necrosis of bone (Resolved) L97.514 Peripheral arterial occlusive disease (Chronic) I77.9 Charcot's joint of left foot (Chronic) M14.672 Type 2 diabetes mellitus with diabetic polyneuropathy (Chronic) E11.42 Ulcer of left foot with fat layer exposed (Acute) L97.522 Recurrent Chest pain (Acute) R07.9 Ulcer of abdomen wall with fat layer exposed (Chronic) L98.492 History of CVA (cerebrovascular accident) (Chronic) Z86.73 Atherosclerotic heart disease of [place] coronary artery without angina pectoris (Chronic) I25.10 CABG X 3 vessels [facility]: DANIEL to LAD, reverse SVG to dx and to 2nd OM per Dr. Borjas @ [facility] 09/09/2014; PTCA/YASIR to Left main, LAD, and OM1 per Dr. Hatfield 12/21/2014; History of stroke (Chronic) Z86.73 Carotid artery disease (Chronic) I77.9 Peripheral vascular disease (Chronic) I73.9 Hyperlipidemia (Chronic) E78.5 Coronary artery disease (Chronic) I25.10 Hypothyroidism (Chronic) E03.9 Iron deficiency anemia (Chronic) D50.9 GERD (gastroesophageal reflux disease) (Chronic) K21.9 Carpal tunnel syndrome G56.00 Essential hypertension I10 Gout M10.9 History of blood clots Z86.718 History of blood transfusion Z92.89 IBS (irritable bowel syndrome) K58.9 Neuropathy G62.9 Osteoporosis M81.0 Allergies doxycycline Allergy (Severe, Verified 04/14/20 14:31) all over body hives and itching atorvastatin calcium [From Lipitor] Allergy (Verified 04/14/20 14:31) Unknown bupropion HCl [From Wellbutrin] Allergy (Verified 04/14/20 14:31) Unknown mannitol [From Reclast] Allergy (Verified 04/14/20 14:31) joint pain, unable to breathe, unable to walk propoxyphene napsylate [From Darvocet-N 100] Allergy (Verified 04/14/20 14:31) Unknown Quinolones Allergy (Verified 04/14/20 14:31) Unknown Tetanus Vaccines and Toxoid [Tetanus Vaccines & Toxoid] Allergy (Verified 04/14/20 14:31) Chest tightness tizanidine Allergy (Verified 04/14/20 14:31) Unknown zoledronic acid [From Reclast] Allergy (Verified 04/14/20 14:31) joint pain,unable to breathe, unaable to walk JOINT PAIN,UNABLE TO BREATHE,UNABLE TO WALK pravastatin Adverse Reaction (Severe, Verified 04/14/20 14:31) Myalgias gemfibrozil Adverse Reaction (Intermediate, Verified 04/14/20 14:31) Unknown NSAIDS (Non-Steroidal Anti-Inflamma Adverse Reaction (Verified 04/14/20 14:31) Other Home Medications: Ambulatory Orders Medication Instructions Recorded Levothyroxine Sodium [Levoxyl] 75 mcg PO QHS 03/10/17 Pravastatin Sodium 40 mg PO QHS 03/10/17 amlodipine 5 mg tablet 5 mg PO DAILY tab 05/05/18 glucagon (human recombinant) 1 mg 1 mg IM ONCE PRN 11/24/18 solution for injection Ergocalciferol [Vitamin D] 50,000 unit PO QWEEK 09/21/19 Esomeprazole Magnesium 20 mg PO DAILY 09/21/19 clopidogrel 75 mg tablet 75 mg PO DAILY #90 tab 11/23/19 duloxetine 30 mg capsule,delayed 30 mg PO QHS cap 01/11/20 release fexofenadine 180 mg tablet 180 mg PO DAILY tab 01/12/20 Carvedilol 25 mg PO BID 02/26/20 Hydroxyzine HCl 50 mg PO Q8H PRN PRN 02/26/20 Isosorbide Mononitrate [Isosorbide 60 mg PO .COMPLEX 02/26/20 Mononitrate ER] Nitroglycerin [Nitrolingual [place] 0.4 mg SL PRN PRN 02/26/20 ([facility])] Allopurinol 100 mg PO DAILY 03/17/20 Calcium Citrate 200 mg PO BID #0 03/17/20 L. Acidophilus/L.bulgaricus 1 tab PO DAILY 03/17/20 [Lactobacillus Tablet] insulin detemir U-100 100 unit/mL 36 unit SC BID ml 03/24/20 (3 mL) subcutaneous pen aspirin 81 mg tablet,delayed 81 mg PO DAILY 04/05/20 release cbd 1 dose PO 4X/DAY PRN 04/05/20 cyclobenzaprine 10 mg tablet 5 mg PO TID PRN tab 04/05/20 insulin aspart U-100 100 unit/mL 14 unit SC BID ml 04/05/20 (3 mL) subcutaneous pen ipratropium bromide 0.03 % nasal 2 spray INTRANASAL Q6H PRN ml 04/05/20 spray levomefolate Ca 3 mg-B6 35 1 cap PO Q6H cap 04/05/20 mg-meB12 2 mg-algal oil 90.314 mg capsule nshmol-[id number]-gspzrkj 1 cap PO BID cap 04/05/20 24,000-76,000-120,000 unit capsule,delayed rel quetiapine 100 mg tablet 300 mg PO QHS tab 04/05/20 Melatonin 5 mg PO 1700 04/15/20 traZODone [Desyrel] 50 mg PO QHS 04/15/20 ALPRAZolam [Xanax] 0.25 mg PO BID PRN PRN tab 04/19/20 Acetaminophen [Tylenol Tablet] 650 mg PO Q6H PRN PRN tab 04/19/20 Ferrous Sulfate 325 mg PO 1200,1700 04/19/20 Insulin Lispro [Humalog KwikPen] See Protocol SC ACHS 04/19/20 Lisinopril [Prinivil] 10 mg PO DAILY 04/19/20 Menthol/Lanolin/Calamine/Znox 1 applic TOPICAL TID 04/19/20 [Calmoseptine Ointment] Piperacil/Tazobactam [Zosyn] 3.375 gm IV Q8 04/19/20 Sodium Hypochlorite [Dakins 1 applic TOPICAL DAILY 04/19/20 Solution 0.25% (1/2 Strength)] Vancomycin IV [Vancomycin] 1,000 mg IV Q24H 04/19/20 Surgical History: Surgical History (Last Reviewed 04/16/20 @ 15:[address] Judson Massey MD) Stented coronary artery (Chronic) Onset Date: 12/03/18 Z95.5 PTCA and YASIR to proximal and distal CX per Dr. Hatfield @ [facility]:(Promus Premier 4.0 X 12 mm L2 stent from distal left main into proximal LCX; Promus Premier RX 2.25 X 12 mm L1 stent in distal LCX) 12/03/2018:Triple vessel CAD of the LAD, LCX, RCA Successful PTCA/YASIR mid LCX with a 2.5 x 20 Promus Synergy stent; 85%-->0-%, no dissection. 12/24/18:FFR of RCA=0.97, negative, left for medical managemen History of coronary artery bypass graft (Chronic) Z95.1 CABG X 3 vessels [facility]:DANIEL to LAD, reverse SVG to dx and to 2nd OM per Dr. Borjas @ [facility] 09/09/2014 History of gastric bypass Z98.84 History of ventral hernia repair Z98.890, Z87.19 History of excision of lesion Z98.890, Z87.2 Surgical preparation supraumbilical area in previous scar with excision nonhealing ulcer and 16 cm complex secondary wound closure - 03/07/20 History of gastric bypass (Inactive) Z98.84 History of left heart catheterization (Inactive) Z98.890 CABG X 3 vessels [facility]:DANIEL to LAD, reverse SVG to dx and to 2nd OM per Dr. Borjas @ [facility] 09/09/2014; PTCA andDES to proximal and distal CX per Dr. Hatfield 12/21/2014; Hx of ventral hernia repair (Inactive) Z98.890, Z87.19 with mesh 20 years ago Surgical History: angioplasty - Stent., appendectomy, coronary bypass surgery, gastric bypass, tonsillectomy, - - , Carpal tunnel release, cardiac catheterization, carotid endarterectomy, right foot transmetatarsal amputation, exostectomy left foot Psychiatric History: Anxiety, Depression SPECIAL NEEDS TUTOR History: No pertinent SPECIAL NEEDS TUTOR history Lives: Spouse/ Significant Other Smoking Status: Never smoker Tobacco Use: Non-smoker Alcohol: None Drugs: None - *Family History Paternal Family History: Family History (Last Reviewed 04/16/20 @ 15:[address] Judson Massey MD) Mother Cancer CVA (cerebral vascular accident) CAD (coronary artery disease) Father CAD (coronary artery disease) History of coronary artery bypass graft Sister CAD (coronary artery disease) Multiple sclerosis Other Anxiety Bleeding disorder Depression Diabetes Heart disease High cholesterol Hypertension History Items: No pertinent history Maternal Family History: Family History (Last Reviewed 04/16/20 @ 15:[address] Judson Massey MD) Mother Cancer CVA (cerebral vascular accident) CAD (coronary artery disease) Father CAD (coronary artery disease) History of coronary artery bypass graft Sister CAD (coronary artery disease) Multiple sclerosis Other Anxiety Bleeding disorder Depression Diabetes Heart disease High cholesterol Hypertension History Items: No pertinent history Review of Systems Constitutional: Denies: Chills, Fever, Weight Change HEENT: Denies: Head Aches, Sinus Congestion, Sinus Drainage Cardiovascular: Denies: Chest Pain, Palpitations Respiratory: Denies: Cough, Shortness of breath at rest, Sputum production Gastrointestinal: Denies: Abdominal Pain, Nausea, Vomiting Genitourinary: Denies: Dysuria Musculoskeletal: Denies: Joint Pain, Joint Tenderness Skin: Denies: Rash, Wounds Neurological: Denies: Numbness, Tingling, Focal weakness Psychiatric: Denies: Anxiety, Depression, Homicidal Ideations, Suicidal Ideations Hematologic/ Lymphatic: Denies: Easy Bruising, Easy Bleeding VTE Information - Inpt Only VTE Present on Admission: No VTE Mechan Device Prophylaxis: Knee High MINDY Hose VTE Pharm Prophylaxis ordered?: No Reason prophylaxis not ordered:: Treatment Not Indicated Patient Problems: Active and Suspected Problems (Last Reviewed 04/16/20 @ 15:[address] Judson Massey MD) Cellulitis of left lower limb (Acute) Infection of left foot (Acute) Debility (Acute) Ulcer of left foot with fat layer exposed (Acute) Recurrent - Physical Exam Vitals/I&O's: Vital Signs Temp Pulse Resp BP Pulse Ox 97.0 F L 64 16 175/73 H 96 04/19/20 22:11 04/19/20 22:11 04/19/20 22:11 04/19/20 22:11 04/19/20 22:11 Oxygen Delivery Method Room Air Weight: 85.729 kg Body Mass Index (BMI) 32.4 Finger Stick Blood Glucose 193 General: Alert, Oriented x3, Cooperative HEENT: Atraumatic, PERRLA, EOMI, Normocephalic Neck: Supple, No JVD, Negative Carotid Bruits Lungs: Clear to auscultation, Normal air movement Cardiovascular: Regular rate, No murmurs Abdomen: Bowel Sounds Present, Soft, Non Tender Extremities: No edema, Capillary Refill Less than 3 Seconds, - - Left foot dressed. Skin: No rashes, No breakdown Musculoskeletal: No Tenderness to Palpation of Joints or Extremities Neurological: Cranial nerves II-XII grossly intact Psych/Mental Status: Normal Affect, Appropriate Current Medications Acetaminophen (Acetaminophen 325 Mg Tablet) 650 mg PO Q6H PRN PRN PRN Reason: Pain Score 1-10 Allopurinol (Allopurinol 100 Mg Tablet) 100 mg PO DAILY [facility] Alprazolam (Alprazolam 0.25 Mg Tablet) 0.25 mg PO BID PRN PRN PRN Reason: ANXIETY Amlodipine Besylate (Amlodipine 5 Mg Tablet) 5 mg PO DAILY [facility] Aspirin (Aspirin E.C. 81 Mg Tablet) 81 mg PO DAILY [facility] Calamine/Phenol (Menthol/Lanolin/Calamine/Znox 113 Gm Tube) 1 applic TOPICAL TID [facility]; Protocol Calcium Carbonate (Calcium Carbonate 500 Mg Tablet) 500 mg PO BID [facility] Carvedilol (Carvedilol 25 Mg Tablet) 25 mg PO BID [facility] Clopidogrel Bisulfate (Clopidogrel Bisulfate 75 Mg Tablet) 75 mg PO DAILY [facility] Cyclobenzaprine HCl (Cyclobenzaprine Hcl 10 Mg Tablet) 5 mg PO TID PRN PRN PRN Reason: MUSCLE SPASM Duloxetine HCl (Duloxetine Hcl 30 Mg Capsule) 30 mg PO QHS [facility] Ergocalciferol (Ergocalciferol 50,000 Unit Capsule) 50,000 unit PO QWEEK [facility] Ferrous Sulfate (Ferrous Sulfate 325 Mg Tablet) 325 mg PO 1200,1700 [facility] Insulin Human Lispro (Insulin Lispro 100 Unit/Ml Insuln.Pen) 0 unit SC ACHS [facility]; Protocol Isosorbide Mononitrate (Isosorbide Mononitrate 60 Mg Tablet) 60 mg PO QAM [facility] Isosorbide Mononitrate (Isosorbide Mononitrate 60 Mg Tablet) 120 mg PO QHS [facility] Levothyroxine Sodium (Levothyroxine 75 Mcg Tablet) 75 mcg PO QHS [facility] Lisinopril (Lisinopril 10 Mg Tablet) 10 mg PO DAILY [facility] Non-Formulary Medication (Cbd) 1 dose PO 4X/DAY PRN PRN Reason: pain/1500 Non-Formulary Medication (Esomeprazole Magnesium) 20 mg PO DAILY [facility] Non-Formulary Medication (Fexofenadine Hcl [Aller-Ease]) 180 mg PO DAILY [facility] Non-Formulary Medication (Glucagon,Human Recombinant [Glucagon Emergency Kit]) 1 mg IM ONCE PRN PRN Reason: HYPOGLYCEMIA Non-Formulary Medication (Hydroxyzine Hcl) 50 mg PO Q8H PRN PRN PRN Reason: Anxiety/allergies Non-Formulary Medication (Insulin Aspart [Insulin Aspart Flexpen]) 14 unit SC BID [facility] Non-Formulary Medication (Insulin Detemir [Levemir Flextouch]) 36 unit SC BID [facility] Non-Formulary Medication (Ipratropium Marcellus) 2 spray INTRANASAL Q6H PRN PRN Reason: CONGESTION Non-Formulary Medication (L. Acidophilus/L.Bulgaricus [Lactobacillus Tablet]) 1 tab PO DAILY [facility] Non-Formulary Medication (Levomefolate/B6/B12/Algal Oil [B-Cfopisyaf-Nbbqc-F9s-Bs-Slm]) 1 cap PO Q6H [facility] Non-Formulary Medication (Melatonin) 5 mg PO 1700 [facility] Non-Formulary Medication (Nitroglycerin) 0.4 mg SL PRN PRN PRN Reason: chest pain Non-Formulary Medication (Piperacil/Tazobactam) 3.375 gm IV Q8 [facility] Non-Formulary Medication (Vancomycin Iv [Vancomycin]) 1,000 mg IV Q24H [facility] Pancrelipase (Creon 24,[address] Capsule) 1 capsule PO BID [facility] Pravastatin Sodium (Pravastatin 40 Mg Tablet) 40 mg PO QHS [facility] Quetiapine Fumarate (Quetiapine 100 Mg Tablet) 300 mg PO QHS [facility] Sodium Chloride (0.9% Saline Lock 10 Ml Syringe) 10 - 40 ml IV UD PRN PRN Reason: Closed End PICC Flush Sodium Chloride (0.9 % Nacl (Sterile) Posiflush 10 Ml) 10 - 40 ml IV UD PRN PRN Reason: Port access or dressing change Sodium Hypochlorite (Dakin's [place] Half Strength (=0.25%)) 1 applic TOPICAL DAILY [facility]; Protocol Trazodone HCl (Trazodone 50 Mg Tablet) 50 mg PO QHS [facility] Assessment/Plan All Active Problems (Last Reviewed 04/16/20 @ 15:[address] Judson Massey MD) Cellulitis of left lower limb (Acute) Infection of left foot (Acute) Debility (Acute) Nonhealing surgical wound (Acute) Ulcer of right foot with necrosis of bone (Resolved) Ulcer of left foot with fat layer exposed (Acute) Chest pain (Acute) 74 year old female with below past medical history hospitalized for left foot infection, underwent debridement 04/15/20 per Podiatry, admitted to TCU with debility, here for rehabilitation, strengthening, intravenous antibiotics, prior to discharge home with . Debility - PT/OT. Pain - Tylenol 1000MG Q6H PRN pain (1-3), Oxycodone 5MG Q4H PRN pain (4-10) Bowel - Miralax 17GM daily, Senna/colace 1 tablet BID, MOM 30ML daily PRN, Dulcolax 10MG CT daily PRN. Adult immunization - Administer Prevnar 13, Pneumovax 23, Fluzone as appropriate. DVT prophylaxis - Hold, on dual antiplatelet therapy. Gout - Allopurinol 100MG daily. Anxiety - Xanax 0.25MG BID PRN, stable chronic group home use, GDR not recommended. Coronary Artery Disease - Coreg 25MG BID, Imdur 60MG QAM, 120MG QHS, Lisinopril 10MG daily, Plavix 75MG daily, Aspirin 81MG daily, NTG 0.4MG Q5M PRN. Hypertension - Coreg 25MG BID, Lisinopril 10MG daily, Amlodipine 5MG daily. GERD - Pantoprazole 20MG daily, TUMS 500MG BID. Muscle spasm - Flexeril 5MG TID PRN. Depression - Duloxetine 30MG QHS, stable chronic intermediate card tender use, GDR not recommended. Vitamin D deficiency - D2 50,000 units per week. Iron deficiency anemia - Iron sulfate 325MG BID. Diabetes Mellitus II - Lantus 36 units BID, Humalog 14 units BID, Glucagon 1MG IM PRN hypoglycemia. Nutrition - Glucerna 120ML 4x/day, Blue 1 packet BID. Allergic rhinitis - Hydroxyzine 50MG Q8H PRN, Atrovent nasal spray 2 sprays Q8H PRN. GI prophylaxis - Lactobacillus 1 tablet daily. Hypothyroidism - Levothyroxine 75MCG QHS. Pancreatic insufficiency - Creon 1 capsule BID. Insomnia - Melatonin 5MG QHS, Seroquel 300MG QHS, stable chronic group home use, GDR not recommended, Trazodone 50MG QHS. Skin irritation - Calmoseptine TID. Left foot infection - Zosyn 3.375GM IV Q8H, Vancomycin 1000MG IV Q24H thru 04/29/20, consult Dr. Webb. Left foot wound - Consult Rosa Flores 1/2 strength topical daily. Hyperlipidemia - Pravastatin 40MG QHS.
[2020-04-19] MEDS: QUEtiapine 100 MG Tablet 300 MG PO (23:51)
[2020-04-19] MEDS: Acetaminophen 500 MG Tablet 1000 MG PO (23:51)
[2020-04-20 05:06] VITALS: BP 186/64; PULSE 70; RESP 18; TEMP 36.9; O2SAT 92
[2020-04-20] MEDS: Pantoprazole Sodium 20 MG Tablet PO (05:09)
[2020-04-20] MEDS: Carvedilol 25 MG Tablet PO ×2 (05:10→17:33)
[2020-04-20] MEDS: Lisinopril 10 MG Tablet PO (05:10)
[2020-04-20] MEDS: amLODIPine 5 MG Tablet PO (05:10)
[2020-04-20] MEDS: Allopurinol 100 MG Tablet PO (05:10)
[2020-04-20] MEDS: Aspirin E.C. 81 MG Tablet PO (05:11)
[2020-04-20] MEDS: Calcium Carbonate 500 MG Tablet PO ×2 (05:11→17:33)
[2020-04-20] MEDS: Loratadine 10 MG Tablet PO (05:11)
[2020-04-20] MEDS: Clopidogrel Bisulfate 75 MG Tablet PO (05:12)
[2020-04-20] MEDS: Creon 24,000 unit DR Capsule 1 CAP PO ×2 (05:13→17:33)
[2020-04-20] MEDS: 0.9% Saline Lock 10 ML Syringe IV ×3 (05:19→13:56)
[2020-04-20] MEDS: CLARIFY ORDER 1 EACH NOTE (05:21)
[2020-04-20] MEDS: Menthol/Lanolin/Calamine/Znox 113 GM Tube 1 APPLIC TOPICAL ×3 (05:21→21:21)
[2020-04-20 06:10] LABS: Absolute Lymphocyte Count 1.72 X10^3/uL (0.83-4.51); Absolute Neutrophil Count 2.5 X10^3/uL (2.0-7.7); Basophil# 0.02 X10^3/uL; Basophil% 0.4 % (0-1); Eosinophil# 0.15 X10^3/uL; Hematocrit 29.2 % (37-47); Hemoglobin 8.7 g/dL (12.0-15.0); Lymphocyte # 1.72 X10^3/ul (4.0); Lymphocyte % 34.7 % (19-41); Mean Corp Hgb Conc 29.8 g/dL (32-36); Mean Corpuscular Hgb 23.6 pg (27.0-32.0); Mean Corpuscular Volume 79.1 fL (81-99); Mean Platelet Vol. 8.9 fl (6.2-12.0); Monocyte# 0.47 X10^3/uL; Monocyte% 9.5 % (0-10); NRBC Flagged by Analyzer 0.4 % (0-5); Neutrophil # 2.53 X10^3/uL (2.7-7.7); Neutrophil % 51.2 % (47-70); Platelet Count 236 K/mm3 (150-450); RBC Distribution Width CV 17.7 % (11.6-14.6); RBC Distribution Width SD 50.4 fl (35.1-43.9); Red Blood Count 3.69 M/mm3 (4.2-5.4)
[2020-04-20 06:17] LABS: Erythrocyte Sedimentation Rate 38 mm/hr (0-30)
[2020-04-20 06:35] LABS: Bedside Glucose 72 mg/dL (70-110)
[2020-04-20 06:37] LABS: Anion Gap 4 (5-15); BUN 9 mg/dL (7-18); BUN/Creat Ratio 7.3 RATIO (10-20); Calcium,Total 8.5 mg/dL (8.5-10.1); Chloride 115 mmol/L (98-107); Creatinine, Serum 1.23 mg/dL (0.55-1.02); EST Glomerular Filtration Rate 46 mL/min (>60); Est Glom Filt Rate - Afr Amer 55 mL/min (>60); Glucose 70 mg/dL (74-106); Potassium 3.7 mmol/L (3.5-5.1); Sodium Level 144 mmol/L (136-145)
[2020-04-20 06:40] LABS: Vancomycin, Trough Level 19.9 ug/mL (5.0-15.0)
[2020-04-20] MEDS: ALPRAZolam 0.25 MG Tablet PO (09:18)
[2020-04-20] MEDS: Tuberculin,Purif.prot.deriv. 50 TU/ML Vial 5 ML ID (10:20)
[2020-04-20] MEDS: Isosorbide Mononitrate 60 MG Tablet PO (10:20)
--- NOTE | 2020-04-20 10:20 | NURSING ---
wound photo: left plantar foot
--- NOTE | 2020-04-20 10:21 | NURSING ---
wound photo: left dorsal foot
[2020-04-20] MEDS: oxyCODONE 5 MG Tablet PO ×2 (10:23→17:48)
[2020-04-20 11:01] LABS: Bedside Glucose 121 mg/dL (70-110)
[2020-04-20] MEDS: Ferrous Sulfate 325 MG Tablet PO ×2 (11:52→17:33)
[2020-04-20] MEDS: DAKIN'S SOL HALF STRENGTH (=0.25%) 1 APPLIC TOPICAL (11:53)
[2020-04-20] MEDS: Acetaminophen 500 MG Tablet 1000 MG PO (12:27)
[2020-04-20 13:49] VITALS: BP 181/68; PULSE 83; RESP 17; TEMP 36.3; O2SAT 96
[2020-04-20] MEDS: hydrOXYzine PAM 25 MG Capsule 50 MG PO (13:56)
--- NOTE | 2020-04-20 14:04 | CASEMGMT ---
Social Work Discussed code status with pt. Pt confirmed full code. Rae Ruiz, ELECTRICAL ELECTRONICS TECHNICIAN PRE BILLING CLINICIAN
--- NOTE | 2020-04-20 14:45 | PHA.CONS_ITS ---
<Lillian Jerez - Last Filed: 04/20/20 14:45> Progress Note - Pharmacy Subjective: [facility] Admission Objective: Allergies doxycycline Allergy (Severe, Verified 04/14/20 14:31) all over body hives and itching atorvastatin calcium [From Lipitor] Allergy (Verified 04/14/20 14:31) Unknown bupropion HCl [From Wellbutrin] Allergy (Verified 04/14/20 14:31) Unknown mannitol [From Reclast] Allergy (Verified 04/14/20 14:31) joint pain, unable to breathe, unable to walk propoxyphene napsylate [From Darvocet-N 100] Allergy (Verified 04/14/20 14:31) Unknown Quinolones Allergy (Verified 04/14/20 14:31) Unknown Tetanus Vaccines and Toxoid [Tetanus Vaccines & Toxoid] Allergy (Verified 04/14/20 14:31) Chest tightness tizanidine Allergy (Verified 04/14/20 14:31) Unknown zoledronic acid [From Reclast] Allergy (Verified 04/14/20 14:31) joint pain,unable to breathe, unaable to walk JOINT PAIN,UNABLE TO BREATHE,UNABLE TO WALK pravastatin Adverse Reaction (Severe, Verified 04/14/20 14:31) Myalgias gemfibrozil Adverse Reaction (Intermediate, Verified 04/14/20 14:31) Unknown NSAIDS (Non-Steroidal Anti-Inflamma Adverse Reaction (Verified 04/14/20 14:31) Other Current Medications Generic Name Dose Route Start Last Admin Trade Name Freq PRN Reason Stop Dose Admin Acetaminophen 1,000 mg 04/19/20 23:26 04/20/20 12:27 Acetaminophen 500 Mg Tablet PO 1,000 mg Q6H PRN PRN Administration Pain Score 1-3 Allopurinol 100 mg 04/20/20 06:00 04/20/20 05:10 Allopurinol 100 Mg Tablet PO 100 mg DAILY [facility] Administration Alprazolam 0.25 mg 04/19/20 22:46 04/20/20 09:18 Alprazolam 0.25 Mg Tablet PO 0.25 mg BID PRN PRN Administration ANXIETY Amlodipine Besylate 5 mg 04/20/20 06:00 04/20/20 05:10 Amlodipine 5 Mg Tablet PO 5 mg DAILY [facility] Administration Aspirin 81 mg 04/20/20 06:00 04/20/20 05:11 Aspirin E.C. 81 Mg Tablet PO 81 mg DAILY [facility] Administration Bisacodyl 10 mg 04/19/20 23:27 Bisacodyl 10 Mg Suppository RECTAL DAILY PRN Constipation Calamine/Phenol 1 applic 04/20/20 06:00 04/20/20 12:29 Menthol/Lanolin/Calamine/Znox 113 Gm Tube TOPICAL 1 applicatio TID [facility] Administration Protocol Calcium Carbonate 500 mg 04/20/20 06:00 04/20/20 05:11 Calcium Carbonate 500 Mg Tablet PO 500 mg BID [facility] Administration Carvedilol 25 mg 04/20/20 06:00 04/20/20 05:10 Carvedilol 25 Mg Tablet PO 25 mg BID [facility] Administration Clopidogrel Bisulfate 75 mg 04/20/20 06:00 04/20/20 05:12 Clopidogrel Bisulfate 75 Mg Tablet PO 75 mg DAILY [facility] Administration Cyclobenzaprine HCl 5 mg 04/19/20 22:46 Cyclobenzaprine Hcl 10 Mg Tablet PO TID PRN PRN MUSCLE SPASM Duloxetine HCl 30 mg 04/20/20 22:00 Duloxetine Hcl 30 Mg Capsule PO QHS [facility] Ergocalciferol 50,000 unit 04/21/20 06:00 Ergocalciferol 50,000 Unit Capsule PO QWEEK [facility] Ferrous Sulfate 325 mg 04/20/20 12:00 04/20/20 11:52 Ferrous Sulfate 325 Mg Tablet PO 325 mg 1200,1700 [facility] Administration Glucagon 1 mg 04/19/20 23:12 Glucagon 1 Mg/Ml Syringe IM X1 PRN HYPOGLYCEMIA Hydroxyzine Pamoate 50 mg 04/19/20 23:10 04/20/20 13:56 Hydroxyzine [place] 25 Mg Capsule PO 50 mg Q8H PRN PRN Administration Anxiety/allergies Piperacillin Sod/Tazobactam 50 mls @ 12.5 mls/hr 04/20/20 06:00 04/20/20 13:57 Sod 3.375 gm/ Sodium Chloride IV 12.5 mls/hr Q8 [facility] Administration Vancomycin IV Pharmacy to Dose 500 mls @ 250 mls/hr 04/20/20 07:49 1 ea/ Sodium Chloride IV X1 PRN Rx to Dose Protocol Vancomycin HCl 1,000 mg in 200 mls @ 200 mls/hr 04/20/20 19:00 Vancomycin IV Q24H [facility] Insulin Glargine 36 units 04/20/20 06:00 04/20/20 07:04 Insulin Glargine 100 Units/Ml Pen SC Not Given BID [facility] Insulin Human Lispro 14 unit 04/20/20 06:00 04/20/20 07:04 Insulin Lispro 100 Unit/Ml Insuln.Pen SC Not Given BID [facility] Ipratropium [place] 2 spray 04/19/20 23:11 Ipratropium [place] 0.06% Nasal [place] NASAL Q6H PRN CONGESTION Isosorbide Mononitrate 60 mg 04/20/20 10:00 04/20/20 10:20 Isosorbide Mononitrate 60 Mg Tablet PO 60 mg QAM [facility] Administration Isosorbide Mononitrate 120 mg 04/20/20 22:00 Isosorbide Mononitrate 60 Mg Tablet PO QHS [facility] Lactobacillus Acidophilus 1 tablet 04/20/20 06:00 04/20/20 05:09 Lactobacillus Acidophilus PO 1 tablet DAILY [facility] Administration Levothyroxine Sodium 75 mcg 04/20/20 22:00 Levothyroxine 75 Mcg Tablet PO QHS [facility] Lisinopril 10 mg 04/20/20 06:00 04/20/20 05:10 Lisinopril 10 Mg Tablet PO 10 mg DAILY [facility] Administration Loratadine 10 mg 04/20/20 06:00 04/20/20 05:11 Loratadine 10 Mg Tablet PO 10 mg DAILY [facility] Administration Magnesium Hydroxide 30 ml 04/19/20 23:27 Magnesium Hydroxide 30 Ml Udc PO DAILY PRN Constipation Melatonin 5 mg 04/20/20 17:00 Melatonin 10 Mg Tablet PO 1700 [facility] Nitroglycerin 0.4 mg 04/19/20 23:15 Nitroglycerin (Inpatient Use) 0.4 Mg Tab.Subl SUBLINGUAL Q5M PRN CARDIAC/CHEST PAIN Nutritional Formula 1 packet 04/20/20 08:00 04/20/20 08:41 Nutritional Supplement (Blue) Packet PO 1 packet BIDCM [facility] Administration Oxycodone HCl 5 mg 04/20/20 08:05 04/20/20 10:23 Oxycodone 5 Mg Tablet PO 5 mg Q4H PRN PRN Administration Pain Score 4-10 Pancrelipase 1 capsule 04/20/20 06:00 04/20/20 05:13 Creon 24,[address] Capsule PO 1 capsule BID [facility] Administration Pantoprazole Sodium 20 mg 04/20/20 06:00 04/20/20 05:09 Pantoprazole Sodium 20 Mg Tablet PO 20 mg DAILY [facility] Administration Polyethylene Glycol 17 gm 04/20/20 06:00 04/20/20 05:11 Polyethylene Glycol 3350 17 Gm Packet PO Not Given DAILY [facility] Pravastatin Sodium 40 mg 04/20/20 22:00 Pravastatin 40 Mg Tablet PO QHS [facility] Quetiapine Fumarate 300 mg 04/19/20 22:49 04/19/20 23:51 Quetiapine 100 Mg Tablet PO 300 mg QHS [facility] Administration Senna/Docusate Sodium 1 tablet 04/20/20 06:00 04/20/20 05:11 Senna/Docusate Sodium 1 Tablet PO Not Given BID [facility] Sodium Chloride 10 - 40 ml 04/19/20 22:29 04/20/20 13:56 0.9% Saline Lock 10 Ml Syringe IV 10 ml UD PRN Administration Closed End PICC Flush Sodium Chloride 10 - 40 ml 04/19/20 22:29 0.9 % Nacl (Sterile) Posiflush 10 Ml IV UD PRN Port access or dressing change Sodium Hypochlorite 1 applic 04/20/20 06:00 04/20/20 11:53 Dakin's [place] Half Strength (=0.25%) TOPICAL 1 applicatio DAILY [facility] Administration Protocol Trazodone HCl 50 mg 04/20/20 08:06 Trazodone 50 Mg Tablet PO QHS PRN INSOMNIA Tuberculin PPD 5 tu 04/27/20 10:00 Tuberculin,Purif.Prot.Deriv. 50 Tu/Ml Vial ID 04/27/20 10:01 X1 ONE Problem List (Last Reviewed 04/16/20 @ 15:[address] Judson Massey MD) Cellulitis of left lower limb (Acute) Infection of left foot (Acute) Debility (Acute) Diabetes mellitus type 2 in obese (Chronic) Depression (Chronic) Allergic rhinitis (Chronic) Gout (Chronic) Muscle spasm (Chronic) Insomnia (Chronic) Vitamin D deficiency (Chronic) Charcot's joint of left foot (Chronic) Ulcer of left foot with fat layer exposed (Acute) Hyperlipidemia (Chronic) Coronary artery disease (Chronic) Hypothyroidism (Chronic) GERD (gastroesophageal reflux disease) (Chronic) Vital Signs Temp Pulse Resp BP Pulse Ox 97.4 F L 83 17 181/68 H 96 04/20/20 13:49 04/20/20 13:49 04/20/20 13:49 04/20/20 13:49 04/20/20 13:49 Oxygen Delivery Method Room Air Weight: 85.729 kg Body Mass Index (BMI) 32.4 Finger Stick Blood Glucose 193 Sodium 144 mmol/L (136-145) 04/20/20 05:58 Potassium 3.7 mmol/L (3.5-5.1) 04/20/20 05:58 Chloride 115 mmol/L (98-107) H 04/20/20 05:58 Carbon Dioxide 25.0 mmol/L (21.0-32.0) 04/20/20 05:58 Anion Gap 4 (5-15) L 04/20/20 05:58 BUN 9 mg/dL (7-18) 04/20/20 05:58 Creatinine 1.23 mg/dL (0.55-1.02) H 04/20/20 05:58 Est GFR (MDRD) Af Amer 55 mL/min (>60) L 04/20/20 05:58 Est GFR (MDRD) Non-Af 46 mL/min (>60) L 04/20/20 05:58 BUN/Creatinine Ratio 7.3 RATIO (10-20) L 04/20/20 05:58 Glucose 70 mg/dL (74-106) L 04/20/20 05:58 Vancomycin Trough 19.9 ug/mL (5.0-15.0) H 04/20/20 05:58 Assessment/Plan: 1. Pain: acetaminophen 1000mg PO Q6H PRN pain (1-3) and oxycodone 5mg PO Q4H PRN pain (4-10). Please continue to monitor for increased pain, PRN usage, constipation, and respiratory depression. *2. Left foot infection: piperacillin/tazobactam 3.375gm IV Q8H and vancomycin 1000mg Q24H. Please continue to monitor renal function, vancomycin troughs, S/S of infection and diarrhea. Please consider adding a stop date. Thanks. 3. CAD/hypertension: carvedilol 25mg PO BID, Imdur 60mg PO QAM/120mg PO QHS, lisinopril 10mg PO daily, clopidogrel 75mg PO daily, aspirin 81mg PO daily, nitroglycerin 0.4MG Q5M PRN chest pain, and amlodipine 5mg PO daily. Please continue to monitor for S/S of bleeding, BP (last 181/68), HR (last 83), chest pain, renal function, hemoglobin (last 8.7g/dL), swelling, and potassium (last 3.7mmol/L). 4. Gout: allopurinol 100mg PO daily. Please continue to monitor for S/S of gout and renal function. 5. GERD: pantoprazole 20mg PO daily, and TUMS 500mg PO BID. Please continue to monitor for S/S of GERD, diarrhea, and calcium (last 8.5mg/dL). 6. Muscle spasm: cyclobenzaprine 5mg PO TID PRN muscle spasm. Please continue to monitor for muscle spasms. 7. Iron deficiency anemia: ferrous sulfate 325mg PO BID. Please continue to monitor hemoglobin and for dark stools. 8. Diabetes Mellitus II: insulin glargine 36units SC BID and insulin lispro 14units SC BIDCM. Please continue to monitor for S/S of hypoglycemia, hemoglobin A1c (last 7.8%), and blood glucose levels. *9. Allergic rhinitis: hydroxyzine 50mg PO Q8H PRN anxiety/allergies, Atrovent nasal spray 2 sprays Q8H PRN congestion and loratadine 10mg PO daily. Patient has both alprazolam and hydroxyzine PRN anxiety. Please clarify which agent should be used first line for anxiety. Thanks. 10. Hypothyroidism: levothyroxine 75mcg PO QHS. Please continue to monitor TSH levels and for S/S of hypo/hyperthyroidism. 11. Pancreatic insufficiency: Creon 24,000units PO BIDCM. Please continue to monitor. 12. Hyperlipidemia: pravastatin 40mg PO QHS. Please continue to monitor lipid panel and for muscle pain. *13. Vitamin D deficiency: ergocalciferol 50,000units PO once weekly. Please consider ordering a vitamin D level now and then annually as clinically appropriate. Thanks. 14. GI prophylaxis: lactobacillus 1T PO daily. Please continue to monitor. Psychotropic Medications: 1. Depression: duloxetine 30mg PO QHS. Please see physician note regarding GDR. 2. Anxiety: alprazolam 0.25mg PO BID PRN anxiety. Please see physician note regarding GDR. 3. Insomnia: melatonin 5mg PO QHS, quetiapine 300Mmg PO QHS, and trazodone 50mg PO QHS PRN insomnia. Please see physician note regarding GDR. Unnecessary Medications: None Bowel Regimen: Miralax 17gm PO daily, senna/docusate 1T PO BID, MOM 30ML PO daily PRN constipation and bisacodyl 10mg CT daily PRN constipation. Please continue to monitor for constipation and PRN usage. Date of Note:: 04/20/20 - Provider Comments Provider responsibility: Provider responsible to enter orders to implement r ecommendations <Adolfo Rush Chi - Last Filed: 04/20/20 16:44> Progress Note - Pharmacy Subjective: [] Objective: Allergies doxycycline Allergy (Severe, Verified 04/14/20 14:31) all over body hives and itching atorvastatin calcium [From Lipitor] Allergy (Verified 04/14/20 14:31) Unknown bupropion HCl [From Wellbutrin] Allergy (Verified 04/14/20 14:31) Unknown mannitol [From Reclast] Allergy (Verified 04/14/20 14:31) joint pain, unable to breathe, unable to walk propoxyphene napsylate [From Darvocet-N 100] Allergy (Verified 04/14/20 14:31) Unknown Quinolones Allergy (Verified 04/14/20 14:31) Unknown Tetanus Vaccines and Toxoid [Tetanus Vaccines & Toxoid] Allergy (Verified 04/14/20 14:31) Chest tightness tizanidine Allergy (Verified 04/14/20 14:31) Unknown zoledronic acid [From Reclast] Allergy (Verified 04/14/20 14:31) joint pain,unable to breathe, unaable to walk JOINT PAIN,UNABLE TO BREATHE,UNABLE TO WALK pravastatin Adverse Reaction (Severe, Verified 04/14/20 14:31) Myalgias gemfibrozil Adverse Reaction (Intermediate, Verified 04/14/20 14:31) Unknown NSAIDS (Non-Steroidal Anti-Inflamma Adverse Reaction (Verified 04/14/20 14:31) Other Current Medications Generic Name Dose Route Start Last Admin Trade Name Freq PRN Reason Stop Dose Admin Acetaminophen 1,000 mg 04/19/20 23:26 04/20/20 12:27 Acetaminophen 500 Mg Tablet PO 1,000 mg Q6H PRN PRN Administration Pain Score 1-3 Allopurinol 100 mg 04/20/20 06:00 04/20/20 05:10 Allopurinol 100 Mg Tablet PO 100 mg DAILY [facility] Administration Alprazolam 0.25 mg 04/19/20 22:46 04/20/20 09:18 Alprazolam 0.25 Mg Tablet PO 0.25 mg BID PRN PRN Administration ANXIETY Amlodipine Besylate 5 mg 04/20/20 06:00 04/20/20 05:10 Amlodipine 5 Mg Tablet PO 5 mg DAILY [facility] Administration Aspirin 81 mg 04/20/20 06:00 04/20/20 05:11 Aspirin E.C. 81 Mg Tablet PO 81 mg DAILY [facility] Administration Bisacodyl 10 mg 04/19/20 23:27 Bisacodyl 10 Mg Suppository RECTAL DAILY PRN Constipation Calamine/Phenol 1 applic 04/20/20 06:00 04/20/20 12:29 Menthol/Lanolin/Calamine/Znox 113 Gm Tube TOPICAL 1 applicatio TID [facility] Administration Protocol Calcium Carbonate 500 mg 04/20/20 06:00 04/20/20 05:11 Calcium Carbonate 500 Mg Tablet PO 500 mg BID [facility] Administration Carvedilol 25 mg 04/20/20 06:00 04/20/20 05:10 Carvedilol 25 Mg Tablet PO 25 mg BID [facility] Administration Clopidogrel Bisulfate 75 mg 04/20/20 06:00 04/20/20 05:12 Clopidogrel Bisulfate 75 Mg Tablet PO 75 mg DAILY [facility] Administration Cyclobenzaprine HCl 5 mg 04/19/20 22:46 Cyclobenzaprine Hcl 10 Mg Tablet PO TID PRN PRN MUSCLE SPASM Duloxetine HCl 30 mg 04/20/20 22:00 Duloxetine Hcl 30 Mg Capsule PO QHS [facility] Ergocalciferol 50,000 unit 04/21/20 06:00 Ergocalciferol 50,000 Unit Capsule PO QWEEK [facility] Ferrous Sulfate 325 mg 04/20/20 12:00 04/20/20 11:52 Ferrous Sulfate 325 Mg Tablet PO 325 mg 1200,1700 [facility] Administration Glucagon 1 mg 04/19/20 23:12 Glucagon 1 Mg/Ml Syringe IM X1 PRN HYPOGLYCEMIA Hydroxyzine Pamoate 50 mg 04/19/20 23:10 04/20/20 13:56 Hydroxyzine [place] 25 Mg Capsule PO 50 mg Q8H PRN PRN Administration Anxiety/allergies Vancomycin IV Pharmacy to Dose 500 mls @ 250 mls/hr 04/20/20 07:49 1 ea/ Sodium Chloride IV X1 PRN Rx to Dose Protocol Vancomycin HCl 1,000 mg in 200 mls @ 200 mls/hr 04/20/20 19:00 Vancomycin IV Q24H [facility] Cefepime HCl 1 gm/ Sodium 50 mls @ 100 mls/hr 04/20/20 18:00 Chloride IV 04/29/20 08:00 Q12 [facility] Insulin Glargine 36 units 04/20/20 06:00 04/20/20 07:04 Insulin Glargine 100 Units/Ml Pen SC Not Given BID [facility] Insulin Human Lispro 14 unit 04/20/20 17:00 Insulin Lispro 100 Unit/Ml Insuln.Pen SC 0800,1700 [facility] Ipratropium [place] 2 spray 04/19/20 23:11 Ipratropium [place] 0.06% Nasal [place] NASAL Q6H PRN CONGESTION Isosorbide Mononitrate 60 mg 04/20/20 10:00 04/20/20 10:20 Isosorbide Mononitrate 60 Mg Tablet PO 60 mg QAM [facility] Administration Isosorbide Mononitrate 120 mg 04/20/20 22:00 Isosorbide Mononitrate 60 Mg Tablet PO QHS [facility] Lactobacillus Acidophilus 1 tablet 04/20/20 06:00 04/20/20 05:09 Lactobacillus Acidophilus PO 1 tablet DAILY [facility] Administration Levothyroxine Sodium 75 mcg 04/20/20 22:00 Levothyroxine 75 Mcg Tablet PO QHS [facility] Lisinopril 10 mg 04/20/20 06:00 04/20/20 05:10 Lisinopril 10 Mg Tablet PO 10 mg DAILY [facility] Administration Loratadine 10 mg 04/20/20 06:00 04/20/20 05:11 Loratadine 10 Mg Tablet PO 10 mg DAILY [facility] Administration Magnesium Hydroxide 30 ml 04/19/20 23:27 Magnesium Hydroxide 30 Ml Udc PO DAILY PRN Constipation Melatonin 5 mg 04/20/20 17:00 Melatonin 10 Mg Tablet PO 1700 [facility] Nitroglycerin 0.4 mg 04/19/20 23:15 Nitroglycerin (Inpatient Use) 0.4 Mg Tab.Subl SUBLINGUAL Q5M PRN CARDIAC/CHEST PAIN Nutritional Formula 1 packet 04/20/20 08:00 04/20/20 08:41 Nutritional Supplement (Blue) Packet PO 1 packet BIDCM [facility] Administration Oxycodone HCl 5 mg 04/20/20 08:05 04/20/20 10:23 Oxycodone 5 Mg Tablet PO 5 mg Q4H PRN PRN Administration Pain Score 4-10 Pancrelipase 1 capsule 04/20/20 17:00 Creon 24,[address] Capsule PO BIDCM [facility] Pantoprazole Sodium 20 mg 04/20/20 06:00 04/20/20 05:09 Pantoprazole Sodium 20 Mg Tablet PO 20 mg DAILY [facility] Administration Polyethylene Glycol 17 gm 04/20/20 06:00 04/20/20 05:11 Polyethylene Glycol 3350 17 Gm Packet PO Not Given DAILY [facility] Pravastatin Sodium 40 mg 04/20/20 22:00 Pravastatin 40 Mg Tablet PO QHS [facility] Quetiapine Fumarate 300 mg 04/19/20 22:49 04/19/20 23:51 Quetiapine 100 Mg Tablet PO 300 mg QHS [facility] Administration Senna/Docusate Sodium 1 tablet 04/20/20 06:00 04/20/20 05:11 Senna/Docusate Sodium 1 Tablet PO Not Given BID [facility] Sodium Chloride 10 - 40 ml 04/19/20 22:29 04/20/20 13:56 0.9% Saline Lock 10 Ml Syringe IV 10 ml UD PRN Administration Closed End PICC Flush Sodium Chloride 10 - 40 ml 04/19/20 22:29 0.9 % Nacl (Sterile) Posiflush 10 Ml IV UD PRN Port access or dressing change Sodium Hypochlorite 1 applic 04/20/20 06:00 04/20/20 11:53 Dakin's [place] Half Strength (=0.25%) TOPICAL 1 applicatio DAILY [facility] Administration Protocol Trazodone HCl 50 mg 04/20/20 08:06 Trazodone 50 Mg Tablet PO QHS PRN INSOMNIA Tuberculin PPD 5 tu 04/27/20 10:00 Tuberculin,Purif.Prot.Deriv. 50 Tu/Ml Vial ID 04/27/20 10:01 X1 ONE Problem List (Last Reviewed 04/16/20 @ 15:[address] Judson Massey MD) Cellulitis of left lower limb (Acute) Infection of left foot (Acute) Debility (Acute) Diabetes mellitus type 2 in obese (Chronic) Depression (Chronic) Allergic rhinitis (Chronic) Gout (Chronic) Muscle spasm (Chronic) Insomnia (Chronic) Vitamin D deficiency (Chronic) Charcot's joint of left foot (Chronic) Ulcer of left foot with fat layer exposed (Acute) Hyperlipidemia (Chronic) Coronary artery disease (Chronic) Hypothyroidism (Chronic) GERD (gastroesophageal reflux disease) (Chronic) Vital Signs Temp Pulse Resp BP Pulse Ox 97.4 F L 83 17 181/68 H 96 04/20/20 13:49 04/20/20 13:49 04/20/20 13:49 04/20/20 13:49 04/20/20 13:49 Oxygen Delivery Method Room Air Weight: 85.729 kg Body Mass Index (BMI) 32.4 Finger Stick Blood Glucose 193 Sodium 144 mmol/L (136-145) 04/20/20 05:58 Potassium 3.7 mmol/L (3.5-5.1) 04/20/20 05:58 Chloride 115 mmol/L (98-107) H 04/20/20 05:58 Carbon Dioxide 25.0 mmol/L (21.0-32.0) 04/20/20 05:58 Anion Gap 4 (5-15) L 04/20/20 05:58 BUN 9 mg/dL (7-18) 04/20/20 05:58 Creatinine 1.23 mg/dL (0.55-1.02) H 04/20/20 05:58 Est GFR (MDRD) Af Amer 55 mL/min (>60) L 04/20/20 05:58 Est GFR (MDRD) Non-Af 46 mL/min (>60) L 04/20/20 05:58 BUN/Creatinine Ratio 7.3 RATIO (10-20) L 04/20/20 05:58 Glucose 70 mg/dL (74-106) L 04/20/20 05:58 Vancomycin Trough 19.9 ug/mL (5.0-15.0) H 04/20/20 05:58 Assessment/Plan: Psychotropic Medications: Unnecessary Medications: Bowel Regimen: - Provider Comments Provider responsibility: Provider responsible to enter orders to implement recommendations Provider Comments to Recommendations by Pharmacy: Agree
--- NOTE | 2020-04-20 16:13 | PCM.PN.ID ---
Patient Problems: Active and Suspected Problems (Last Reviewed 04/16/20 @ 15:[address] Judson Massey MD) Cellulitis of left lower limb (Acute) Infection of left foot (Acute) Debility (Acute) Ulcer of left foot with fat layer exposed (Acute) Recurrent Subjective: Foot is ok, no fever, c/o diarrhea. No abd pain. - Physical Exam Vitals/I&O's: Vital Signs Temp Pulse Resp BP Pulse Ox 97.4 F L 83 17 181/68 H 96 04/20/20 13:49 04/20/20 13:49 04/20/20 13:49 04/20/20 13:49 04/20/20 13:49 Oxygen Delivery Method Room Air Weight: 85.729 kg Body Mass Index (BMI) 32.4 Finger Stick Blood Glucose 193 Intake and Output for Last 24 Hours 04/18/20 04/19/20 04/20/20 23:59 23:59 23:59 Intake Total 410 / 410 Balance 410 / 410 General: Alert, Cooperative, No apparent distress Lungs: Clear to auscultation, Normal air movement Cardiovascular: Regular rate, Regular Rhythm Abdomen: Soft, Non Tender, Non-Distended Skin: Ulcer/ Wound - foot wrapped Laboratory Results 04/20/20 05:58: WBC 5.0, RBC 3.69 L, Hgb 8.7 L, Hct 29.2 L, MCV 79.1 L, MCH 23.6 L, MCHC 29.8 L, RDW Std Deviation 50.4 H, RDW Coeff of Marco 17.7 H, Plt Count 236, MPV 8.9, Immature Gran % (Auto) 1.200 H, Neut % (Auto) 51.2, Lymph % (Auto) 34.7, [place] % (Auto) 9.5, Eos % (Auto) 3.0, Baso % (Auto) 0.4, Absolute Neuts (auto) 2.5, Absolute Lymphs (auto) 1.72, Nucleated RBC % 0.4, ESR 38 H 04/20/20 05:58: Sodium 144, Potassium 3.7, Chloride 115 H, Carbon Dioxide 25.0, Anion Gap 4 L, BUN 9, Creatinine 1.23 H, Estim Creat Clear Calc 35.70, Est GFR (MDRD) Af Amer 55 L, Est GFR (MDRD) Non-Af 46 L, BUN/Creatinine Ratio 7.3 L, Glucose 70 L, Calcium 8.5 04/20/20 05:58: Vancomycin Trough 19.9 H 04/20/20 06:14: POC Glucose 72 04/20/20 07:00: COVID-19 (CARLEEN) Not Detected 04/20/20 10:46: POC Glucose 121 H Current Medications Acetaminophen (Acetaminophen 500 Mg Tablet) 1,000 mg PO Q6H PRN PRN PRN Reason: Pain Score 1-3 Last Admin: 04/20/20 12:27 Dose: 1,000 mg Documented by: Allopurinol (Allopurinol 100 Mg Tablet) 100 mg PO DAILY [facility] Last Admin: 04/20/20 05:10 Dose: 100 mg Documented by: Alprazolam (Alprazolam 0.25 Mg Tablet) 0.25 mg PO BID PRN PRN PRN Reason: ANXIETY Last Admin: 04/20/20 09:18 Dose: 0.25 mg Documented by: Amlodipine Besylate (Amlodipine 5 Mg Tablet) 5 mg PO DAILY [facility] Last Admin: 04/20/20 05:10 Dose: 5 mg Documented by: Aspirin (Aspirin E.C. 81 Mg Tablet) 81 mg PO DAILY [facility] Last Admin: 04/20/20 05:11 Dose: 81 mg Documented by: Bisacodyl (Bisacodyl 10 Mg Suppository) 10 mg RECTAL DAILY PRN PRN Reason: Constipation Calamine/Phenol (Menthol/Lanolin/Calamine/Znox 113 Gm Tube) 1 applic TOPICAL TID [facility]; Protocol Last Admin: 04/20/20 12:29 Dose: 1 applicatio Documented by: Calcium Carbonate (Calcium Carbonate 500 Mg Tablet) 500 mg PO BID [facility] Last Admin: 04/20/20 05:11 Dose: 500 mg Documented by: Carvedilol (Carvedilol 25 Mg Tablet) 25 mg PO BID [facility] Last Admin: 04/20/20 05:10 Dose: 25 mg Documented by: Clopidogrel Bisulfate (Clopidogrel Bisulfate 75 Mg Tablet) 75 mg PO DAILY [facility] Last Admin: 04/20/20 05:12 Dose: 75 mg Documented by: Cyclobenzaprine HCl (Cyclobenzaprine Hcl 10 Mg Tablet) 5 mg PO TID PRN PRN PRN Reason: MUSCLE SPASM Duloxetine HCl (Duloxetine Hcl 30 Mg Capsule) 30 mg PO QHS [facility] Ergocalciferol (Ergocalciferol 50,000 Unit Capsule) 50,000 unit PO QWEEK [facility] Ferrous Sulfate (Ferrous Sulfate 325 Mg Tablet) 325 mg PO 1200,1700 [facility] Last Admin: 04/20/20 11:52 Dose: 325 mg Documented by: Glucagon (Glucagon 1 Mg/Ml Syringe) 1 mg IM X1 PRN PRN Reason: HYPOGLYCEMIA Hydroxyzine Pamoate (Hydroxyzine [place] 25 Mg Capsule) 50 mg PO Q8H PRN PRN PRN Reason: Anxiety/allergies Last Admin: 04/20/20 13:56 Dose: 50 mg Documented by: Vancomycin IV Pharmacy to Dose (1 ea/ Sodium Chloride) 500 mls @ 250 mls/hr IV X1 PRN; Protocol PRN Reason: Rx to Dose Vancomycin HCl (Vancomycin) 1,000 mg in 200 mls @ 200 mls/hr IV Q24H [facility] Cefepime HCl 2 gm/ Sodium (Chloride) 100 mls @ 200 mls/hr IV Q8 [facility] Stop: 04/29/20 12:00 Insulin Glargine (Insulin Glargine 100 Units/Ml Pen) 36 units SC BID [facility] Last Admin: 04/20/20 07:04 Dose: Not Given Documented by: Insulin Human Lispro (Insulin Lispro 100 Unit/Ml Insuln.Pen) 14 unit SC 0800,1700 [facility] Ipratropium [place] (Ipratropium [place] 0.06% Nasal [place]) 2 spray NASAL Q6H PRN PRN Reason: CONGESTION Isosorbide Mononitrate (Isosorbide Mononitrate 60 Mg Tablet) 60 mg PO QAM [facility] Last Admin: 04/20/20 10:20 Dose: 60 mg Documented by: Isosorbide Mononitrate (Isosorbide Mononitrate 60 Mg Tablet) 120 mg PO QHS [facility] Lactobacillus Acidophilus (Lactobacillus Acidophilus) 1 tablet PO DAILY [facility] Last Admin: 04/20/20 05:09 Dose: 1 tablet Documented by: Levothyroxine Sodium (Levothyroxine 75 Mcg Tablet) 75 mcg PO QHS [facility] Lisinopril (Lisinopril 10 Mg Tablet) 10 mg PO DAILY [facility] Last Admin: 04/20/20 05:10 Dose: 10 mg Documented by: Loratadine (Loratadine 10 Mg Tablet) 10 mg PO DAILY [facility] Last Admin: 04/20/20 05:11 Dose: 10 mg Documented by: Magnesium Hydroxide (Magnesium Hydroxide 30 Ml Udc) 30 ml PO DAILY PRN PRN Reason: Constipation Melatonin (Melatonin 10 Mg Tablet) 5 mg PO 1700 [facility] Nitroglycerin (Nitroglycerin (Inpatient Use) 0.4 Mg Tab.Subl) 0.4 mg SUBLINGUAL Q5M PRN PRN Reason: CARDIAC/CHEST PAIN Nutritional Formula (Nutritional Supplement (Blue) Packet) 1 packet PO BIDCM [facility] Last Admin: 04/20/20 08:41 Dose: 1 packet Documented by: Oxycodone HCl (Oxycodone 5 Mg Tablet) 5 mg PO Q4H PRN PRN PRN Reason: Pain Score 4-10 Last Admin: 04/20/20 10:23 Dose: 5 mg Documented by: Pancrelipase (Creon 24,[address] Capsule) 1 capsule PO BIDCM [facility] Pantoprazole Sodium (Pantoprazole Sodium 20 Mg Tablet) 20 mg PO DAILY [facility] Last Admin: 04/20/20 05:09 Dose: 20 mg Documented by: Polyethylene Glycol (Polyethylene Glycol 3350 17 Gm Packet) 17 gm PO DAILY [facility] Last Admin: 04/20/20 05:11 Dose: Not Given Documented by: Pravastatin Sodium (Pravastatin 40 Mg Tablet) 40 mg PO QHS [facility] Quetiapine Fumarate (Quetiapine 100 Mg Tablet) 300 mg PO QHS [facility] Last Admin: 04/19/20 23:51 Dose: 300 mg Documented by: Senna/Docusate Sodium (Senna/Docusate Sodium 1 Tablet) 1 tablet PO BID [facility] Last Admin: 04/20/20 05:11 Dose: Not Given Documented by: Sodium Chloride (0.9% Saline Lock 10 Ml Syringe) 10 - 40 ml IV UD PRN PRN Reason: Closed End PICC Flush Last Admin: 04/20/20 13:56 Dose: 10 ml Documented by: Sodium Chloride (0.9 % Nacl (Sterile) Posiflush 10 Ml) 10 - 40 ml IV UD PRN PRN Reason: Port access or dressing change Sodium Hypochlorite (Dakin's N[place]omi Half Strength (=0.25%)) 1 applic TOPICAL DAILY [facility]; Protocol Last Admin: 04/20/20 11:53 Dose: 1 applicatio Documented by: Trazodone HCl (Trazodone 50 Mg Tablet) 50 mg PO QHS PRN PRN Reason: INSOMNIA Tuberculin PPD (Tuberculin,Purif.Prot.Deriv. 50 Tu/Ml Vial) 5 tu ID [id number] ONE Stop: 04/27/20 10:01 Medical Necessity - Tobacco Use Smoking Status: Never smoker Tobacco Use: Non-smoker Route of nutrition/ use of supplements: [] Nutritional Intake: [] IV Site: [] [place] Catheter: [] - Assessment/Plan Antibiotics: [] Assessment/Plan: [] Active and Suspected Problems (Last Reviewed 04/16/20 @ 15:[address] Judson Massey MD) Cellulitis of left lower limb (Acute) Infection of left foot (Acute) Debility (Acute) Ulcer of left foot with fat layer exposed (Acute) Recurrent L foot infection - d/w Dr. Magana, did not see bone involvement in OR 04/15/20. Surg cx with MRSE x2, strep mitis, PsA, coryne, e faecalis. On vanc/zosyn. Plan will be for picc and at least 2 weeks iv abx with stop date 04/29/20. Weekly bmp, cbc, esr, and vanc trough. She does not recall reaction to quinolones. Cdiff was neg, but ongoing diarrhea, so will change zosyn to cefepime. Will follow
[2020-04-20 16:45] LABS: Bedside Glucose 131 mg/dL (70-110)
[2020-04-20] MEDS: MELATONIN 10 MG TABLET 5 MG PO (17:33)
[2020-04-20] MEDS: Insulin Lispro 100 UNIT/ML INSULN.PEN 14 UNIT SC (17:34)
--- NOTE | 2020-04-20 17:40 | NURSING ---
BLOOD SUGAR [address] ZULUAGA OF LANTUS/NOVOLOG ORDER. STATED TO HOLD LANTUS AND MONITOR. ALSO, DR. ZULUAGA SPOKE WITH Selina BARTON REGARDING MEDS/PAIN MEDS. REORDERED OXYIR AT THIS TIME.
[2020-04-20 17:53] VITALS: BP 179/62; PULSE 80
[2020-04-20 18:27] VITALS: BP 158/54; PULSE 70
[2020-04-20] MEDS: Vancomycin IV 1,000 MG/200 ML BAG 200 MG IV (20:16)
[2020-04-20] MEDS: Pravastatin 40 MG Tablet PO (21:06)
[2020-04-20] MEDS: Isosorbide Mononitrate 60 MG Tablet 120 MG PO (21:06)
[2020-04-20] MEDS: DULoxetine Hcl 30 MG Capsule PO (21:14)
[2020-04-20] MEDS: Levothyroxine 75 MCG Tablet PO (21:15)
[2020-04-20] MEDS: morphine (oral solution) 10MG/0.5ML Syringe 10 MG SL/PO (21:20)
[2020-04-20 21:25] LABS: Bedside Glucose 247 mg/dL (70-110)
[2020-04-20] MEDS: QUEtiapine 100 MG Tablet 300 MG PO (21:57)
[2020-04-21 05:15] VITALS: BP 178/61; PULSE 75; RESP 16; TEMP 36.6; O2SAT 95
[2020-04-21] MEDS: 0.9% Saline Lock 10 ML Syringe IV ×2 (05:21→05:55)
[2020-04-21] MEDS: Carvedilol 25 MG Tablet PO ×2 (05:33→18:12)
[2020-04-21] MEDS: Allopurinol 100 MG Tablet PO (05:33)
[2020-04-21] MEDS: Clopidogrel Bisulfate 75 MG Tablet PO (05:33)
[2020-04-21] MEDS: Pantoprazole Sodium 20 MG Tablet PO (05:33)
[2020-04-21] MEDS: Aspirin E.C. 81 MG Tablet PO (05:33)
[2020-04-21] MEDS: Loratadine 10 MG Tablet PO (05:33)
[2020-04-21] MEDS: Calcium Carbonate 500 MG Tablet PO ×2 (05:33→18:13)
[2020-04-21] MEDS: amLODIPine 5 MG Tablet PO (05:33)
[2020-04-21] MEDS: Acetaminophen 500 MG Tablet 1000 MG PO ×2 (05:39→12:52)
[2020-04-21] MEDS: Lisinopril 10 MG Tablet PO (05:55)
[2020-04-21] MEDS: Menthol/Lanolin/Calamine/Znox 113 GM Tube 1 APPLIC TOPICAL ×3 (05:57→20:35)
[2020-04-21 06:26] LABS: Bedside Glucose 151 mg/dL (70-110)
[2020-04-21] MEDS: Creon 24,000 unit DR Capsule 1 CAP PO ×2 (08:15→18:19)
[2020-04-21] MEDS: Isosorbide Mononitrate 60 MG Tablet PO (08:15)
[2020-04-21] MEDS: Insulin Lispro 100 UNIT/ML INSULN.PEN 14 UNIT SC ×2 (08:17→18:18)
[2020-04-21 10:41] LABS: Bedside Glucose 183 mg/dL (70-110)
[2020-04-21] MEDS: hydrOXYzine PAM 25 MG Capsule 50 MG PO (11:45)
[2020-04-21] MEDS: Ferrous Sulfate 325 MG Tablet PO ×2 (11:53→18:13)
[2020-04-21] MEDS: morphine (oral solution) 10MG/0.5ML Syringe 10 MG SL/PO ×2 (13:59→20:44)
[2020-04-21 16:24] VITALS: BP 152/76; PULSE 76; RESP 18; TEMP 36.6; O2SAT 97
--- NOTE | 2020-04-21 16:29 | NURSING ---
Patient's POA Madison Barrera called and would like to be notified of any future changes in medication for Lisa. She would also like a staff member to be in the room with Dr. Rush when making rounds. Dr. Rush and Helen Lopez made aware of request.
[2020-04-21 16:40] LABS: Bedside Glucose 135 mg/dL (70-110)
[2020-04-21] MEDS: MELATONIN 10 MG TABLET 5 MG PO (18:13)
[2020-04-21] MEDS: Vancomycin IV 1,000 MG/200 ML BAG 200 MG IV (19:35)
[2020-04-21] MEDS: DAKIN'S SOL HALF STRENGTH (=0.25%) 1 APPLIC TOPICAL (20:35)
[2020-04-21] MEDS: DULoxetine Hcl 30 MG Capsule PO (20:36)
[2020-04-21] MEDS: QUEtiapine 100 MG Tablet 300 MG PO (20:37)
[2020-04-21] MEDS: Levothyroxine 75 MCG Tablet PO (20:39)
[2020-04-21] MEDS: Isosorbide Mononitrate 60 MG Tablet 120 MG PO (20:39)
[2020-04-21] MEDS: Pravastatin 40 MG Tablet PO (20:40)
[2020-04-21 21:10] LABS: Bedside Glucose 136 mg/dL (70-110)
[2020-04-22 05:03] VITALS: BP 144/56; PULSE 86; RESP 16; TEMP 36.4; O2SAT 97
[2020-04-22] MEDS: 0.9% Saline Lock 10 ML Syringe IV ×3 (05:05→19:53)
[2020-04-22 06:21] LABS: Bedside Glucose 107 mg/dL (70-110)
[2020-04-22] MEDS: Senna/Docusate Sodium 1 Tablet PO (07:59)
[2020-04-22] MEDS: Lisinopril 10 MG Tablet PO (08:00)
[2020-04-22] MEDS: Calcium Carbonate 500 MG Tablet PO ×2 (08:00→17:50)
[2020-04-22] MEDS: Allopurinol 100 MG Tablet PO (08:00)
[2020-04-22] MEDS: Carvedilol 25 MG Tablet PO ×2 (08:00→17:50)
[2020-04-22] MEDS: Clopidogrel Bisulfate 75 MG Tablet PO (08:00)
[2020-04-22] MEDS: Aspirin E.C. 81 MG Tablet PO (08:00)
[2020-04-22] MEDS: amLODIPine 5 MG Tablet PO (08:00)
[2020-04-22] MEDS: Loratadine 10 MG Tablet PO (08:01)
[2020-04-22] MEDS: Pantoprazole Sodium 20 MG Tablet PO (08:01)
[2020-04-22] MEDS: traZODone 50 MG Tablet PO (08:03)
[2020-04-22] MEDS: Ipratropium Bromide 0.06% NASAL SPRAY 2 SPRAY NASAL (08:03)
[2020-04-22] MEDS: Isosorbide Mononitrate 60 MG Tablet PO (08:03)
[2020-04-22] MEDS: Insulin Lispro 100 UNIT/ML INSULN.PEN 14 UNIT SC ×2 (08:06→17:49)
[2020-04-22] MEDS: Creon 24,000 unit DR Capsule 1 CAP PO ×2 (09:15→17:50)
[2020-04-22] MEDS: Menthol/Lanolin/Calamine/Znox 113 GM Tube 1 APPLIC TOPICAL ×2 (09:16→20:03)
[2020-04-22] MEDS: hydrOXYzine PAM 25 MG Capsule 50 MG PO ×2 (09:20→17:54)
[2020-04-22 09:40] VITALS: PULSE 76; RESP 16; O2SAT 99
[2020-04-22 11:11] LABS: Bedside Glucose 166 mg/dL (70-110)
[2020-04-22] MEDS: Ferrous Sulfate 325 MG Tablet PO ×2 (11:54→17:50)
[2020-04-22 13:38] VITALS: BP 145/55; PULSE 95; RESP 16; TEMP 36.5; O2SAT 95
[2020-04-22] MEDS: ALPRAZolam 0.25 MG Tablet PO (14:26)
[2020-04-22] MEDS: DAKIN'S SOL HALF STRENGTH (=0.25%) 1 APPLIC TOPICAL (14:27)
[2020-04-22] MEDS: cycloBENZAPRine HCl 10 MG Tablet 5 MG PO (16:11)
[2020-04-22 16:51] LABS: Bedside Glucose 210 mg/dL (70-110)
[2020-04-22] MEDS: MELATONIN 10 MG TABLET 5 MG PO (17:50)
[2020-04-22] MEDS: morphine (oral solution) 10MG/0.5ML Syringe 10 MG SL/PO (18:38)
[2020-04-22] MEDS: Vancomycin IV 1,000 MG/200 ML BAG 200 MG IV (19:53)
[2020-04-22] MEDS: Levothyroxine 75 MCG Tablet PO (20:00)
[2020-04-22] MEDS: Isosorbide Mononitrate 60 MG Tablet 120 MG PO (20:01)
[2020-04-22] MEDS: Pravastatin 40 MG Tablet PO (20:01)
[2020-04-22] MEDS: QUEtiapine 100 MG Tablet 300 MG PO (20:01)
[2020-04-22] MEDS: DULoxetine Hcl 30 MG Capsule PO (20:01)
[2020-04-22 21:45] LABS: Bedside Glucose 74 mg/dL (70-110)
[2020-04-23 06:03] VITALS: BP 129/45; PULSE 78; RESP 16; TEMP 37; O2SAT 96
[2020-04-23 06:05] LABS: Bedside Glucose 86 mg/dL (70-110)
[2020-04-23] MEDS: Creon 24,000 unit DR Capsule 1 CAP PO ×2 (08:32→16:09)
[2020-04-23] MEDS: Loratadine 10 MG Tablet PO (08:32)
[2020-04-23] MEDS: Carvedilol 25 MG Tablet PO ×2 (08:32→16:09)
[2020-04-23] MEDS: Aspirin E.C. 81 MG Tablet PO (08:32)
[2020-04-23] MEDS: amLODIPine 5 MG Tablet PO (08:34)
[2020-04-23] MEDS: Pantoprazole Sodium 20 MG Tablet PO (08:34)
[2020-04-23] MEDS: Clopidogrel Bisulfate 75 MG Tablet PO (08:34)
[2020-04-23] MEDS: Lisinopril 10 MG Tablet PO (08:35)
[2020-04-23] MEDS: Calcium Carbonate 500 MG Tablet PO ×2 (08:35→16:09)
[2020-04-23] MEDS: Allopurinol 100 MG Tablet PO (08:35)
--- NOTE | 2020-04-23 09:10 | PN_ITS ---
Patient Problems: Active and Suspected Problems (Last Reviewed 04/16/20 @ 15:[address] Judson Massey MD) Cellulitis of left lower limb (Acute) Infection of left foot (Acute) Debility (Acute) Ulcer of left foot with fat layer exposed (Acute) Recurrent Subjective: Patient was seen this morning for follow up on left foot. She has no new complaints, no complaints of fever, chills, nausea or vomiting. She is resting in chair. - Physical Exam Vitals/I&O's: Vital Signs Temp Pulse Resp BP Pulse Ox 98.6 F 78 16 129/45 H 96 04/23/20 06:03 04/23/20 06:03 04/23/20 06:03 04/23/20 06:03 04/23/20 06:03 Oxygen Delivery Method Room Air Weight: 85.729 kg Body Mass Index (BMI) 32.4 Finger Stick Blood Glucose 193 Intake and Output for Last 24 Hours 04/21/20 04/22/20 04/23/20 23:59 23:59 23:59 Intake Total 963.25 / 963.25 1260 / 1260 290 / 290 Balance 963.25 / 963.25 1260 / 1260 290 / 290 General: Alert, Oriented x3, Cooperative, No apparent distress Extremities: Capillary Refill Less than 3 Seconds - left foot, No Calf Tenderness, - - s/p debridement left foot with wound to the plantar foot and also smaller one to the dorsal lateral foot, there is no cellulitis, no maloder, no purulence, no visible abscess, no necrosis noted, no drainage - healing well, no evidence of acute ischemia to the foot or ankle. Skin: - - Noted incurvation tibial border left 1st toenail distally into the nail fold w/ some callus formation at this site - no drainage, no cellulitis Psych/Mental Status: Appropriate, Alert and oriented to time, place, person, mood and affect Laboratory Results 04/22/20 11:04: POC Glucose 166 H 04/22/20 16:37: POC Glucose 210 H 04/22/20 21:36: POC Glucose 74 04/23/20 06:01: POC Glucose 86 Current Medications Acetaminophen (Acetaminophen 500 Mg Tablet) 1,000 mg PO Q6H PRN PRN PRN Reason: Pain Score 1-3 Last Admin: 04/21/20 12:52 Dose: 1,000 mg Documented by: Allopurinol (Allopurinol 100 Mg Tablet) 100 mg PO DAILY@0800 [facility] Last Admin: 04/23/20 08:35 Dose: 100 mg Documented by: Alprazolam (Alprazolam 0.25 Mg Tablet) 0.25 mg PO BID PRN PRN PRN Reason: ANXIETY Last Admin: 04/22/20 14:26 Dose: 0.25 mg Documented by: Amlodipine Besylate (Amlodipine 5 Mg Tablet) 5 mg PO DAILY@0800 [facility] Last Admin: 04/23/20 08:34 Dose: 5 mg Documented by: Aspirin (Aspirin E.C. 81 Mg Tablet) 81 mg PO DAILY@0800 [facility] Last Admin: 04/23/20 08:32 Dose: 81 mg Documented by: Bisacodyl (Bisacodyl 10 Mg Suppository) 10 mg RECTAL DAILY PRN PRN Reason: Constipation Calamine/Phenol (Menthol/Lanolin/Calamine/Znox 113 Gm Tube) 1 applic TOPICAL 1000,2200 [facility]; Protocol Last Admin: 04/22/20 20:03 Dose: 1 applicatio Documented by: Calcium Carbonate (Calcium Carbonate 500 Mg Tablet) 500 mg PO BIDCM [facility] Last Admin: 04/23/20 08:35 Dose: 500 mg Documented by: Carvedilol (Carvedilol 25 Mg Tablet) 25 mg PO BIDCM [facility] Last Admin: 04/23/20 08:32 Dose: 25 mg Documented by: Clopidogrel Bisulfate (Clopidogrel Bisulfate 75 Mg Tablet) 75 mg PO DAILY@0800 [facility] Last Admin: 04/23/20 08:34 Dose: 75 mg Documented by: Cyclobenzaprine HCl (Cyclobenzaprine Hcl 10 Mg Tablet) 5 mg PO TID PRN PRN PRN Reason: MUSCLE SPASM Last Admin: 04/22/20 16:11 Dose: 5 mg Documented by: Duloxetine HCl (Duloxetine Hcl 30 Mg Capsule) 30 mg PO QHS [facility] Last Admin: 04/22/20 20:01 Dose: 30 mg Documented by: Ergocalciferol (Ergocalciferol 50,000 Unit Capsule) 50,000 unit PO QWEEK [facility] Last Admin: 04/21/20 05:55 Dose: 50,000 unit Documented by: Ferrous Sulfate (Ferrous Sulfate 325 Mg Tablet) 325 mg PO 1200,1700 [facility] Last Admin: 04/22/20 17:50 Dose: 325 mg Documented by: Glucagon (Glucagon 1 Mg/Ml Syringe) 1 mg IM X1 PRN PRN Reason: HYPOGLYCEMIA Hydroxyzine Pamoate (Hydroxyzine [place] 25 Mg Capsule) 50 mg PO Q8H PRN PRN PRN Reason: Anxiety/allergies Last Admin: 04/22/20 17:54 Dose: 50 mg Documented by: Vancomycin IV Pharmacy to Dose (1 ea/ Sodium Chloride) 500 mls @ 250 mls/hr IV X1 PRN; Protocol PRN Reason: Rx to Dose Vancomycin HCl (Vancomycin) 1,000 mg in 200 mls @ 200 mls/hr IV Q24H [facility] Last Infusion: 04/22/20 21:00 Dose: Infused Documented by: Cefepime HCl 1 gm/ Sodium (Chloride) 50 mls @ 100 mls/hr IV Q12 [facility] Stop: 04/29/20 08:00 Last Infusion: 04/23/20 06:35 Dose: Infused Documented by: Sodium Chloride () 250 mls @ 15 mls/hr IV .[id number] PRN PRN Reason: Saline Flush Last Infusion: 04/22/20 07:00 Dose: Infused Documented by: Insulin Glargine (Insulin Glargine 100 Units/Ml Pen) 36 units SC 0800,2000 [facility] Last Admin: 04/23/20 08:33 Dose: 36 u Documented by: Insulin Human Lispro (Insulin Lispro 100 Unit/Ml Insuln.Pen) 14 unit SC 0800,1700 [facility] Last Admin: 04/23/20 08:33 Dose: Not Given Documented by: Ipratropium [place] (Ipratropium [place] 0.06% Nasal [place]) 2 spray NASAL Q6H PRN PRN Reason: CONGESTION Last Admin: 04/22/20 08:03 Dose: 2 sprays Documented by: Isosorbide Mononitrate (Isosorbide Mononitrate 60 Mg Tablet) 60 mg PO QAM [facility] Last Admin: 04/22/20 08:03 Dose: 60 mg Documented by: Isosorbide Mononitrate (Isosorbide Mononitrate 60 Mg Tablet) 120 mg PO QHS [facility] Last Admin: 04/22/20 20:01 Dose: 120 mg Documented by: Lactobacillus Acidophilus (Lactobacillus Acidophilus) 1 tablet PO DAILY@0800 [facility] Last Admin: 04/23/20 08:32 Dose: 1 tablet Documented by: Levothyroxine Sodium (Levothyroxine 75 Mcg Tablet) [facility] Last Admin: 04/22/20 20:00 Dose: 75 mcg Documented by: Lisinopril (Lisinopril 10 Mg Tablet) 10 mg PO DAILY@0800 [facility] Last Admin: 04/23/20 08:35 Dose: 10 mg Documented by: Loratadine (Loratadine 10 Mg Tablet) 10 mg PO DAILY@0800 [facility] Last Admin: 04/23/20 08:32 Dose: 10 mg Documented by: Magnesium Hydroxide (Magnesium Hydroxide 30 Ml Udc) 30 ml PO DAILY PRN PRN Reason: Constipation Melatonin (Melatonin 10 Mg Tablet) 5 mg PO 1700 [facility] Last Admin: 04/22/20 17:50 Dose: 5 mg Documented by: Morphine Sulfate (Morphine (Oral Solution) 10mg/0.5ml Syringe) 10 mg SL/PO BID PRN PRN PRN Reason: Pain Score 6-10 Last Admin: 04/22/20 18:38 Dose: 10 mg Documented by: Nitroglycerin (Nitroglycerin (Inpatient Use) 0.4 Mg Tab.Subl) 0.4 mg SUBLINGUAL Q5M PRN PRN Reason: CARDIAC/CHEST PAIN Nutritional Formula ([facility]ut[facility] (Blue) Packet) [facility] Last Admin: 04/23/20 08:33 Dose: 1 packet Documented by: Pancrelipase (Creon 24,[address] Capsule) 1 capsule PO BIDCM [facility] Last Admin: 04/23/20 08:32 Dose: 1 capsule Documented by: Pantoprazole Sodium (Pantoprazole Sodium 20 Mg Tablet) 20 mg PO DAILY@0800 [facility] Last Admin: 04/23/20 08:34 Dose: 20 mg Documented by: Polyethylene Glycol (Polyethylene Glycol 3350 17 Gm Packet) 17 gm PO DAILY@0800 [facility] Last Admin: 04/23/20 08:29 Dose: Not Given Documented by: Pravastatin Sodium (Pravastatin 40 Mg Tablet) [facility] Last Admin: 04/22/20 20:01 Dose: 40 mg Documented by: Quetiapine Fumarate (Quetiapine 100 Mg Tablet) [facility] Last Admin: 04/22/20 20:01 Dose: 300 mg Documented by: Senna/Docusate Sodium (Senna/Docusate Sodium 1 Tablet) 1 tablet PO BIDCM [facility] Last Admin: 04/23/20 08:30 Dose: Not Given Documented by: Sodium Chloride (0.9% Saline Lock 10 Ml Syringe) 10 - 40 ml IV UD PRN PRN Reason: Closed End PICC Flush Last Admin: 04/22/20 19:53 Dose: 20 ml Documented by: Sodium Chloride (0.9 % Nacl (Sterile) Posiflush 10 Ml) 10 - 40 ml IV UD PRN PRN Reason: Port access or dressing change Sodium Hypochlorite (Dakin's [place]ahomi Half Strength (=0.25%)) 1 applic TOPICAL DAILY@1000 [facility]; Protocol Last Admin: 04/22/20 14:27 Dose: 1 applic Documented by: Trazodone HCl (Trazodone 50 Mg Tablet) 50 mg PO QHS PRN PRN Reason: INSOMNIA Last Admin: 04/22/20 08:03 Dose: 50 mg Documented by: Tuberculin PPD (Tuberculin,Purif.Prot.Deriv. 50 Tu/Ml Vial) 5 tu ID [id number] ONE Stop: 04/27/20 10:01 Medical Necessity - Tobacco Use Smoking Status: Never smoker Tobacco Use: Non-smoker Assessment/Plan All Active Problems (Last Reviewed 04/16/20 @ 15:[address] 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 Continue with daily wet to dry dressing changes to site - dakins soln wet to dry daily. Cultures: Polyorganism noted to wound cultures, continue w/ antibiotics per ID/Dr. Webb. No weightbearing left foot, keep foot elevated. Debrided left 1st toenail removing ingrown toenail from the tibial border and removed small callus tissue from site - applied betadine gauze dressing. DVT Prophylaxis, Diabetes and other medical problems: per Dr. Rush. Podiatry will continue to follow closely.
[2020-04-23 10:56] LABS: Bedside Glucose 240 mg/dL (70-110)
[2020-04-23] MEDS: Menthol/Lanolin/Calamine/Znox 113 GM Tube 1 APPLIC TOPICAL ×2 (11:02→21:28)
[2020-04-23] MEDS: Isosorbide Mononitrate 60 MG Tablet PO (11:02)
[2020-04-23] MEDS: Ferrous Sulfate 325 MG Tablet PO ×2 (11:02→16:09)
[2020-04-23] MEDS: hydrOXYzine PAM 25 MG Capsule 50 MG PO (11:30)
[2020-04-23] MEDS: DAKIN'S SOL HALF STRENGTH (=0.25%) 1 APPLIC TOPICAL (11:33)
[2020-04-23 14:46] VITALS: BP 128/71; PULSE 74; RESP 18; TEMP 36.7; O2SAT 96
[2020-04-23] MEDS: morphine (oral solution) 10MG/0.5ML Syringe 10 MG SL/PO (16:04)
[2020-04-23] MEDS: Senna/Docusate Sodium 1 Tablet PO (16:09)
[2020-04-23 16:25] LABS: Bedside Glucose 164 mg/dL (70-110)
[2020-04-23] MEDS: MELATONIN 10 MG TABLET 5 MG PO (17:44)
[2020-04-23] MEDS: Insulin Lispro 100 UNIT/ML INSULN.PEN 14 UNIT SC (18:26)
[2020-04-23 19:22] LABS: Vancomycin, Trough Level 18.9 ug/mL (5.0-15.0)
[2020-04-23 21:10] LABS: Bedside Glucose 51 mg/dL (70-110)
[2020-04-23] MEDS: Vancomycin IV 1,000 MG/200 ML BAG 200 MG IV (21:12)
[2020-04-23] MEDS: 0.9% Saline Lock 10 ML Syringe IV (21:16)
[2020-04-23] MEDS: Pravastatin 40 MG Tablet PO (21:21)
[2020-04-23] MEDS: DULoxetine Hcl 30 MG Capsule PO (21:21)
[2020-04-23] MEDS: Isosorbide Mononitrate 60 MG Tablet 120 MG PO (21:21)
[2020-04-23] MEDS: Levothyroxine 75 MCG Tablet PO (21:22)
[2020-04-23 21:30] LABS: Bedside Glucose 133 mg/dL (70-110)
--- NOTE | 2020-04-23 22:42 | PCM.RX.CS ---
Consult Pharmacy has been consulted to manage selected antiobiotic: Vancomycin Type of Consult: Follow-up Suspected Infection: Skin/Soft tissue Prior Doses of Antibiotics Received/Current Regimen: Medications Vancomycin HCl 750 mg/ Sodium (Chloride) 265 mls @ 250 mls/hr IV Q24H [facility] Discontinued Medications Vancomycin HCl (Vancomycin) 1,000 mg in 200 mls @ 200 mls/hr IV Q24H [facility] Last Admin: 04/23/20 21:12 Dose: 200 mls/hr Labs: Sodium 144 mmol/L (136-145) 04/20/20 05:58 Potassium 3.7 mmol/L (3.5-5.1) 04/20/20 05:58 Chloride 115 mmol/L (98-107) H 04/20/20 05:58 Carbon Dioxide 25.0 mmol/L (21.0-32.0) 04/20/20 05:58 Anion Gap 4 (5-15) L 04/20/20 05:58 BUN 9 mg/dL (7-18) 04/20/20 05:58 Creatinine 1.23 mg/dL (0.55-1.02) H 04/20/20 05:58 Est GFR (MDRD) Af Amer 55 mL/min (>60) L 04/20/20 05:58 Est GFR (MDRD) Non-Af 46 mL/min (>60) L 04/20/20 05:58 BUN/Creatinine Ratio 7.3 RATIO (10-20) L 04/20/20 05:58 Glucose 70 mg/dL (74-106) L 04/20/20 05:58 Vancomycin Trough 18.9 ug/mL (5.0-15.0) H 04/23/20 18:23 Weight used for dosin.7 kg Estimated Creatinine Clearance: 36 Goal Trough: 10-15 mcg/mL Pharmacy Plan for Drug Dosing: Vancomycin trough was 18.9, above the target range of 10-15. Will decrease dose to 750mg q24h and re-draw trough level prior to third dose of new regimen. Vancomycin trough levels are on order as repeating weekly with a.m. labs-- which won't be true trough levels. I discontinued the scheduled trough for 04/27/20 @0555 due to the newly entered order, but value of remaining weekly draws will need to be evaluated. Pharmacy Service will continue to monitor and adjust dosing as required. Follow-Up Labs: Trough Vancomycin Labs to be done on [date and time ordered]: 04/26/20 @2030
[2020-04-23] MEDS: QUEtiapine 100 MG Tablet 300 MG PO (22:56)
[2020-04-24 06:12] VITALS: BP 99/51; PULSE 75; RESP 16; TEMP 36.8; O2SAT 94
[2020-04-24] MEDS: 0.9% Saline Lock 10 ML Syringe IV ×2 (06:15→21:02)
[2020-04-24 06:21] LABS: Bedside Glucose 100 mg/dL (70-110)
[2020-04-24] MEDS: Calcium Carbonate 500 MG Tablet PO ×2 (08:19→17:23)
[2020-04-24] MEDS: Creon 24,000 unit DR Capsule 1 CAP PO ×2 (08:20→17:23)
[2020-04-24] MEDS: Aspirin E.C. 81 MG Tablet PO (08:20)
[2020-04-24] MEDS: Carvedilol 25 MG Tablet PO ×2 (08:20→17:23)
[2020-04-24] MEDS: Loratadine 10 MG Tablet PO (08:20)
[2020-04-24] MEDS: amLODIPine 5 MG Tablet PO (08:21)
[2020-04-24] MEDS: Lisinopril 10 MG Tablet PO (08:22)
[2020-04-24] MEDS: Pantoprazole Sodium 20 MG Tablet PO (08:22)
[2020-04-24] MEDS: Clopidogrel Bisulfate 75 MG Tablet PO (08:22)
[2020-04-24] MEDS: Senna/Docusate Sodium 1 Tablet PO (08:22)
[2020-04-24] MEDS: Allopurinol 100 MG Tablet PO (08:23)
[2020-04-24] MEDS: hydrOXYzine PAM 25 MG Capsule 50 MG PO ×2 (08:29→17:29)
[2020-04-24 10:56] LABS: Bedside Glucose 262 mg/dL (70-110)
[2020-04-24] MEDS: DAKIN'S SOL HALF STRENGTH (=0.25%) 1 APPLIC TOPICAL (11:01)
[2020-04-24] MEDS: Menthol/Lanolin/Calamine/Znox 113 GM Tube 1 APPLIC TOPICAL ×2 (11:02→20:30)
[2020-04-24] MEDS: Isosorbide Mononitrate 60 MG Tablet PO (11:03)
[2020-04-24] MEDS: Ferrous Sulfate 325 MG Tablet PO ×2 (11:03→17:22)
[2020-04-24 11:08] VITALS: PULSE 81; RESP 16; O2SAT 95
[2020-04-24 15:57] VITALS: BP 136/50; PULSE 81; RESP 16; TEMP 36.9; O2SAT 95
[2020-04-24 16:35] LABS: Bedside Glucose 192 mg/dL (70-110)
[2020-04-24] MEDS: MELATONIN 10 MG TABLET 5 MG PO (17:23)
[2020-04-24] MEDS: Insulin Lispro 100 UNIT/ML INSULN.PEN 14 UNIT SC (17:31)
[2020-04-24] MEDS: DULoxetine Hcl 30 MG Capsule PO (20:30)
[2020-04-24] MEDS: Isosorbide Mononitrate 60 MG Tablet 120 MG PO (20:30)
[2020-04-24] MEDS: Levothyroxine 75 MCG Tablet PO (20:30)
[2020-04-24] MEDS: Pravastatin 40 MG Tablet PO (20:30)
[2020-04-24] MEDS: morphine (oral solution) 10MG/0.5ML Syringe 10 MG SL/PO (20:30)
[2020-04-24 21:36] LABS: Bedside Glucose 265 mg/dL (70-110)
[2020-04-24] MEDS: QUEtiapine 100 MG Tablet 300 MG PO (21:54)
[2020-04-25] MEDS: 0.9% Saline Lock 10 ML Syringe IV ×3 (05:57→17:58)
[2020-04-25 06:09] VITALS: BP 108/47; PULSE 72; RESP 16; TEMP 36.8; O2SAT 94
--- NOTE | 2020-04-25 06:11 | PN_ITS ---
Patient Problems: Active and Suspected Problems (Last Reviewed 04/16/20 @ 15:[address] Judson Massey MD) Cellulitis of left lower limb (Acute) Infection of left foot (Acute) Debility (Acute) Ulcer of left foot with fat layer exposed (Acute) Recurrent Subjective: Patient was seen this morning for follow up on left foot. She is s/p infectious debridement and drainage. She continues on antibiotics and resides in the transitional care unit. She has no new complaints. She denies fever, chills, nausea, or vomiting. She denies left foot pain. - Physical Exam Vitals/I&O's: Vital Signs Temp Pulse Resp BP Pulse Ox 98.3 F 72 16 108/47 L 94 04/25/20 06:09 04/25/20 06:09 04/25/20 06:09 04/25/20 06:09 04/25/20 06:09 Oxygen Delivery Method Room Air Weight: 85.729 kg Body Mass Index (BMI) 32.4 Finger Stick Blood Glucose 193 Intake and Output for Last 24 Hours 04/23/20 04/24/20 04/25/20 23:59 23:59 23:59 Intake Total 1020 / 1020 1595.75 / 1595.75 Balance 1020 / 1020 1595.75 / 1595.75 General: Alert, Oriented x3, Cooperative HEENT: Atraumatic Extremities: No cyanosis, Capillary Refill Less than 3 Seconds - All digits left foot, No Calf Tenderness, Diminished Peripheral Pulses, Edema - scant Skin: Ulcer/ Wound - No purulence, erythema, streaking, odor. Periulcer palpation is no longer painful. The periwound site is still immobilized. There is no visualized bone Musculoskeletal: Muscle Wasting, Tenderness - Significantly decreased compared to preoperative and immediate postoperative, - - Contralateral right foot transmetatarsal amputation. Compartments to the left lower extremity remain soft. There is stable Charcot deformity noted without signs of acute Charcot event Neurological: - - Lack of full normal epicritic sensation is consistent with neuropathy also Psych/Mental Status: Normal Affect, Appropriate Laboratory Results 04/24/20 06:13: POC Glucose 100 04/24/20 10:49: POC Glucose 262 H 04/24/20 16:19: POC Glucose 192 H 04/24/20 21:27: POC Glucose 265 H Current Medications Acetaminophen (Acetaminophen 500 Mg Tablet) 1,000 mg PO Q6H PRN PRN PRN Reason: Pain Score 1-3 Last Admin: 04/21/20 12:52 Dose: 1,000 mg Documented by: Allopurinol (Allopurinol 100 Mg Tablet) 100 mg PO DAILY@0800 [facility] Last Admin: 04/24/20 08:23 Dose: 100 mg Documented by: Alprazolam (Alprazolam 0.25 Mg Tablet) 0.25 mg PO BID PRN PRN PRN Reason: ANXIETY Last Admin: 04/22/20 14:26 Dose: 0.25 mg Documented by: Amlodipine Besylate (Amlodipine 5 Mg Tablet) 5 mg PO DAILY@0800 [facility] Last Admin: 04/24/20 08:21 Dose: 5 mg Documented by: Aspirin (Aspirin E.C. 81 Mg Tablet) 81 mg PO DAILY@0800 [facility] Last Admin: 04/24/20 08:20 Dose: 81 mg Documented by: Bisacodyl (Bisacodyl 10 Mg Suppository) 10 mg RECTAL DAILY PRN PRN Reason: Constipation Calamine/Phenol (Menthol/Lanolin/Calamine/Znox 113 Gm Tube) 1 applic TOPICAL 1000,2200 [facility]; Protocol Last Admin: 04/24/20 20:30 Dose: 1 applicatio Documented by: Calcium Carbonate (Calcium Carbonate 500 Mg Tablet) [facility] Admin: 04/24/20 17:23 Dose: 500 mg Documented by: Carvedilol (Carvedilol 25 Mg Tablet) [facility] Last Admin: 04/24/20 17:23 Dose: 25 mg Documented by: Clopidogrel Bisulfate (Clopidogrel Bisulfate 75 Mg Tablet) 75 mg PO DAILY@0800 [facility] Last Admin: 04/24/20 08:22 Dose: 75 mg Documented by: Cyclobenzaprine HCl (Cyclobenzaprine Hcl 10 Mg Tablet) 5 mg PO TID PRN PRN PRN Reason: MUSCLE SPASM Last Admin: 04/22/20 16:11 Dose: 5 mg Documented by: Duloxetine HCl (Duloxetine Hcl 30 Mg Capsule) 30 mg PO QHS [facility] Last Admin: 04/24/20 20:30 Dose: 30 mg Documented by: Ergocalciferol (Ergocalciferol 50,000 Unit Capsule) 50,000 unit PO QWEEK [facility] Last Admin: 04/21/20 05:55 Dose: 50,000 unit Documented by: Ferrous Sulfate (Ferrous Sulfate 325 Mg Tablet) 325 mg PO 1200,1700 [facility] Last Admin: 04/24/20 17:22 Dose: 325 mg Documented by: Glucagon (Glucagon 1 Mg/Ml Syringe) 1 mg IM X1 PRN PRN Reason: HYPOGLYCEMIA Hydroxyzine Pamoate (Hydroxyzine [place] 25 Mg Capsule) 50 mg PO Q8H PRN PRN PRN Reason: Anxiety/allergies Last Admin: 04/24/20 17:29 Dose: 50 mg Documented by: Vancomycin IV Pharmacy to Dose (1 ea/ Sodium Chloride) 500 mls @ 250 mls/hr IV X1 PRN; Protocol PRN Reason: Rx to Dose Cefepime HCl 1 gm/ Sodium (Chloride) 50 mls @ 100 mls/hr IV Q12 [facility] Stop: 04/29/20 08:00 Last Admin: 04/25/20 05:57 Dose: 100 mls/hr Documented by: Sodium Chloride () 250 mls @ 15 mls/hr IV .[id number] PRN PRN Reason: Saline Flush Last Infusion: 04/24/20 22:33 Dose: 0 mls/hr Documented by: Vancomycin HCl 750 mg/ Sodium (Chloride) 265 mls @ 250 mls/hr IV Q24H [facility] Last Infusion: 04/24/20 22:33 Dose: Infused Documented by: Insulin Glargine (Insulin Glargine 100 Units/Ml Pen) 20 units SC 0800,2000 [facility] Last Admin: 04/24/20 21:53 Dose: 20 u Documented by: Insulin Human Lispro (Insulin Lispro 100 Unit/Ml Insuln.Pen) 14 unit SC 0800,1700 [facility] Last Admin: 04/24/20 17:31 Dose: 14 u Documented by: Ipratropium Gilchrist (Ipratropium [place] 0.06% Nasal [place]) 2 spray NASAL Q6H PRN PRN Reason: CONGESTION Last Admin: 04/22/20 08:03 Dose: 2 sprays Documented by: Isosorbide Mononitrate (Isosorbide Mononitrate 60 Mg Tablet) 60 mg PO QAM [facility] Last Admin: 04/24/20 11:03 Dose: 60 mg Documented by: Isosorbide Mononitrate (Isosorbide Mononitrate 60 Mg Tablet) 120 mg PO QHS [facility] Last Admin: 04/24/20 20:30 Dose: 120 mg Documented by: Lactobacillus Acidophilus (Lactobacillus Acidophilus) 1 tablet PO DAILY@0800 [facility] Last Admin: 04/24/20 08:20 Dose: 1 tablet Documented by: Levothyroxine Sodium (Levothyroxine 75 Mcg Tablet) 75 mcg PO QHS [facility] Last Admin: 04/24/20 20:30 Dose: 75 mcg Documented by: Lisinopril (Lisinopril 10 Mg Tablet) 10 mg PO DAILY@0800 [facility] Last Admin: 04/24/20 08:22 Dose: 10 mg Documented by: Loratadine (Loratadine 10 Mg Tablet) 10 mg PO DAILY@0800 [facility] Last Admin: 04/24/20 08:20 Dose: 10 mg Documented by: Magnesium Hydroxide (Magnesium Hydroxide 30 Ml Udc) 30 ml PO DAILY PRN PRN Reason: Constipation Melatonin (Melatonin 10 Mg Tablet) 5 mg PO 1700 [facility] Last Admin: 04/24/20 17:23 Dose: 5 mg Documented by: Morphine Sulfate (Morphine (Oral Solution) 10mg/0.5ml Syringe) 10 mg SL/PO BID PRN PRN PRN Reason: Pain Score 6-10 Last Admin: 04/24/20 20:30 Dose: 10 mg Documented by: Nitroglycerin (Nitroglycerin (Inpatient Use) 0.4 Mg Tab.Subl) 0.4 mg SUBLINGUAL Q5M PRN PRN Reason: CARDIAC/CHEST PAIN Nutritional Formula (Nutritional Supplement (Blue) Packet) [facility] Last Admin: 04/24/20 17:22 Dose: 1 packet Documented by: Pancrelipase (Creon 24,[address] Capsule) 1 capsule PO BIDCM [facility] Last Admin: 04/24/20 17:23 Dose: 1 capsule Documented by: Pantoprazole Sodium (Pantoprazole Sodium 20 Mg Tablet) 20 mg PO DAILY@0800 [facility] Last Admin: 04/24/20 08:22 Dose: 20 mg Documented by: Polyethylene Glycol (Polyethylene Glycol 3350 17 Gm Packet) 17 gm PO DAILY@0800 [facility] Last Admin: 04/24/20 08:21 Dose: Not Given Documented by: Pravastatin Sodium (Pravastatin 40 Mg Tablet) 40 mg PO QHS [facility] Last Admin: 04/24/20 20:30 Dose: 40 mg Documented by: Quetiapine Fumarate (Quetiapine 100 Mg Tablet) 300 mg PO QHS [facility] Last Admin: 04/24/20 21:54 Dose: 300 mg Documented by: Senna/Docusate Sodium (Senna/Docusate Sodium 1 Tablet) 1 tablet PO BIDCM [facility] Last Admin: 04/24/20 17:23 Dose: Not Given Documented by: Sodium Chloride (0.9% Saline Lock 10 Ml Syringe) 10 - 40 ml IV UD PRN PRN Reason: Closed End PICC Flush Last Admin: 04/25/20 05:57 Dose: 20 ml Documented by: Sodium Chloride (0.9 % Nacl (Sterile) Posiflush 10 Ml) 10 - 40 ml IV UD PRN PRN Reason: Port access or dressing change Sodium Hypochlorite (Dakin's [place] Half Strength (=0.25%)) 1 applic TOPICAL DAILY@1000 [facility]; Protocol Last Admin: 04/24/20 11:01 Dose: 1 applic Documented by: Trazodone HCl (Trazodone 50 Mg Tablet) 50 mg PO QHS PRN PRN Reason: INSOMNIA Last Admin: 04/22/20 08:03 Dose: 50 mg Documented by: Tuberculin PPD (Tuberculin,Purif.Prot.Deriv. 50 Tu/Ml Vial) 5 tu ID [id number] ONE Stop: 04/27/20 10:01 Medical Necessity - Tobacco Use Smoking Status: Never smoker Tobacco Use: Non-smoker Assessment/Plan All Active Problems (Last Reviewed 04/16/20 @ 15:[address] Judson Massey MD) Cellulitis of left lower limb (Acute) Infection of left foot (Acute) Debility (Acute) Nonhealing surgical wound (Acute) Ulcer of right foot with necrosis of bone (Resolved) Ulcer of left foot with fat layer exposed (Acute) Chest pain (Acute) -s/p I+D / debridement left foot on 04/15/20 due to gas / abscess infection -Uncontrolled diabetes with neuropathy -Non acute Charcot midfoot, left -Other comorbidities: coronary artery disease, hypertension, GERD, history of blood clots and history of blood transfusion, history of cerebrovascular accidents, hyperlipidemia, irritable bowel syndrome, history of iron deficiency anemia, obesity, osteoporosis, history of gastric bypass, recent abdominal surgery is noted with delayed healing Left foot healing well, clinically no evidence of infection, tissues viable. Continue with daily wet to dry dressing changes to site - rosa soln wet to dry daily. Delayed primary closure with debridement, mobilization, and application of advanced wound healing product (amnio fill) is recommended will be considered for tomorrow pending operating room time availability and prior authorization. The benefits, risk, complications, purpose, anticipated healing time and management were discussed in detail with the patient. She understands and would like to proceed forward. The goal is to optimize and facilitate a faster healing for limb salvage now that her signs of infection have significantly decreased. Upon confirmation of surgical time, her preoperative orders will be placed. Cultures: Polyorganism noted to wound cultures, continue w/ antibiotics per ID/Dr. Webb. She continues on cefepime and vancomycin. Her ESR was decreased at 38 and her leukocytosis has resolved. She remains afebrile with vital signs stable. No weightbearing left foot, keep foot elevated. DVT Prophylaxis, Diabetes and other medical problems: per Dr. Rush. Podiatry will continue to follow closely. Please call if you have any questions. Ivanna Magana DPM, [facility]
[2020-04-25] MEDS: hydrOXYzine PAM 25 MG Capsule 50 MG PO ×2 (06:18→19:39)
[2020-04-25 06:20] LABS: Bedside Glucose 140 mg/dL (70-110)
--- NOTE | 2020-04-25 07:26 | NURSING ---
The left foot dressing was changed by Dr Magana this am. Possible delayed wound closure tomorrow. will leave dressing in place since changed by podiatry.
[2020-04-25] MEDS: Loratadine 10 MG Tablet PO (08:45)
[2020-04-25] MEDS: Aspirin E.C. 81 MG Tablet PO (08:46)
[2020-04-25] MEDS: amLODIPine 5 MG Tablet PO (08:46)
[2020-04-25] MEDS: Creon 24,000 unit DR Capsule 1 CAP PO ×2 (08:46→17:53)
[2020-04-25] MEDS: Carvedilol 25 MG Tablet PO ×2 (08:46→17:51)
[2020-04-25] MEDS: Calcium Carbonate 500 MG Tablet PO ×2 (08:47→17:53)
[2020-04-25] MEDS: Senna/Docusate Sodium 1 Tablet PO ×2 (08:47→17:52)
[2020-04-25] MEDS: Allopurinol 100 MG Tablet PO (08:47)
[2020-04-25] MEDS: DAKIN'S SOL HALF STRENGTH (=0.25%) 1 APPLIC TOPICAL (08:47)
[2020-04-25] MEDS: Pantoprazole Sodium 20 MG Tablet PO (08:47)
[2020-04-25] MEDS: Lisinopril 10 MG Tablet PO (08:47)
[2020-04-25] MEDS: Insulin Lispro 100 UNIT/ML INSULN.PEN 14 UNIT SC ×2 (08:48→17:49)
[2020-04-25] MEDS: Isosorbide Mononitrate 60 MG Tablet PO (08:48)
[2020-04-25] MEDS: Menthol/Lanolin/Calamine/Znox 113 GM Tube 1 APPLIC TOPICAL (08:54)
[2020-04-25] MEDS: Clopidogrel Bisulfate 75 MG Tablet PO (08:59)
[2020-04-25 11:10] LABS: Bedside Glucose 109 mg/dL (70-110)
[2020-04-25] MEDS: Ferrous Sulfate 325 MG Tablet PO ×2 (11:53→17:50)
[2020-04-25 13:57] VITALS: BP 116/43; PULSE 72; RESP 17; TEMP 36.1; O2SAT 98
--- NOTE | 2020-04-25 15:54 | CASEMGMT ---
Social Work Spoke with pt about DC plans. Pt's IV ATB are done 04/29 and pt is adlib in room. Pt agreeable to DC home 04/30 and to [facility] to follow for wound care. No DME or therapy needs. Family to transport. Referral made to [facility] . Plan: DC home 04/30 with [facility] B[facility] Fonseca[facility]
[2020-04-25 16:25] LABS: Bedside Glucose 158 mg/dL (70-110)
[2020-04-25] MEDS: MELATONIN 10 MG TABLET 5 MG PO (17:51)
--- NOTE | 2020-04-25 19:30 | PCM.DC ---
- Discharge Diagnoses Current Active Problems: Current Active and Chronic Problems (Last Reviewed 04/16/20 @ 15:[address] Judson Massey MD) Cellulitis of left lower limb (Acute) Infection of left foot (Acute) Debility (Acute) Diabetes mellitus type 2 in obese (Chronic) Depression (Chronic) Allergic rhinitis (Chronic) Gout (Chronic) Muscle spasm (Chronic) Insomnia (Chronic) Vitamin D deficiency (Chronic) Charcot's joint of left foot (Chronic) Ulcer of left foot with fat layer exposed (Acute) Recurrent Hyperlipidemia (Chronic) Coronary artery disease (Chronic) Hypothyroidism (Chronic) GERD (gastroesophageal reflux disease) (Chronic) You will use the following diet at home:: No restrictions, Regular Your food should be the consistency of: Regular Your liquids should be the consistency of: Regular/Thin Discharge Activity: Return to Normal Activity, May Shower, Use Walker Weight Bearing Status: No weight bearing Keep extremity elevated above heart level: Left Leg Call your doctor if you observe: Fever of 101 or Higher, Inability to urinate, Inability to have a bowel movement, Shortness of breath, Chest pain, Uncontrolled pain Allergies/Adverse Reactions: Allergies doxycycline Allergy (Severe, Verified 04/14/20 14:31) all over body hives and itching atorvastatin calcium [From Lipitor] Allergy (Verified 04/14/20 14:31) Unknown bupropion HCl [From Wellbutrin] Allergy (Verified 04/14/20 14:31) Unknown mannitol [From Reclast] Allergy (Verified 04/14/20 14:31) joint pain, unable to breathe, unable to walk propoxyphene napsylate [From Darvocet-N 100] Allergy (Verified 04/14/20 14:31) Unknown Quinolones Allergy (Verified 04/14/20 14:31) Unknown Tetanus Vaccines and Toxoid [Tetanus Vaccines & Toxoid] Allergy (Verified 04/14/20 14:31) Chest tightness tizanidine Allergy (Verified 04/14/20 14:31) Unknown zoledronic acid [From Reclast] Allergy (Verified 04/14/20 14:31) joint pain,unable to breathe, unaable to walk JOINT PAIN,UNABLE TO BREATHE,UNABLE TO WALK pravastatin Adverse Reaction (Severe, Verified 04/14/20 14:31) Myalgias gemfibrozil Adverse Reaction (Intermediate, Verified 04/14/20 14:31) Unknown NSAIDS (Non-Steroidal Anti-Inflamma Adverse Reaction (Verified 04/14/20 14:31) Other Medications to take at Discharge Levothyroxine Sodium [Levoxyl] 75 mcg PO QHS 03/10/17 Pravastatin Sodium 40 mg PO QHS 03/10/17 amlodipine 5 mg tablet 5 mg PO DAILY tab 05/05/18 glucagon (human recombinant) 1 mg solution for injection 1 mg IM ONCE PRN 11/24/18 Ergocalciferol [Vitamin D] 50,000 unit PO QWEEK 09/21/19 Esomeprazole Magnesium 20 mg PO DAILY 09/21/19 clopidogrel 75 mg tablet 75 mg PO DAILY #90 tab 11/23/19 duloxetine 30 mg capsule,delayed release 30 mg PO QHS cap 01/11/20 fexofenadine 180 mg tablet 180 mg PO DAILY tab 01/12/20 Carvedilol 25 mg PO BID 02/26/20 Isosorbide Mononitrate [Isosorbide Mononitrate ER] 60 mg PO .COMPLEX 02/26/20 Nitroglycerin [Nitrolingual [place] (BKC)] 0.4 mg SL PRN PRN 02/26/20 Allopurinol 100 mg PO DAILY 03/17/20 Calcium Citrate 200 mg PO BID #0 03/17/20 L. Acidophilus/L.bulgaricus [Lactobacillus Tablet] 1 tab PO DAILY 03/17/20 insulin detemir U-100 100 unit/mL (3 mL) subcutaneous pen 36 unit SC BID ml 03/24/20 aspirin 81 mg tablet,delayed release 81 mg PO DAILY 04/05/20 cbd 1 dose PO 4X/DAY PRN 04/05/20 cyclobenzaprine 10 mg tablet 5 mg PO TID PRN tab 04/05/20 insulin aspart U-100 100 unit/mL (3 mL) subcutaneous pen 14 unit SC BID ml 04/05/20 ipratropium bromide 0.03 % nasal spray 2 spray INTRANASAL Q6H PRN ml 04/05/20 levomefolate Ca 3 mg-B6 35 mg-meB12 2 mg-algal oil 90.314 mg capsule 1 cap PO Q6H cap 04/05/20 qmyooc-ayagxypu-pdhycll 24,000-76,000-120,000 unit capsule,delayed rel 1 cap PO BID cap 04/05/20 quetiapine 100 mg tablet 300 mg PO QHS tab 04/05/20 Melatonin 5 mg PO 1700 04/15/20 traZODone [Desyrel] 50 mg PO QHS 04/15/20 ALPRAZolam [Xanax] 0.25 mg PO BID PRN PRN tab 04/19/20 Ferrous Sulfate 325 mg PO 1200,1700 04/19/20 Insulin Lispro [Humalog KwikPen] See Protocol SC ACHS 04/19/20 Lisinopril [Prinivil] 10 mg PO DAILY 04/19/20 Menthol/Lanolin/Calamine/Znox [Calmoseptine Ointment] 1 applic TOPICAL TID 04/19/20 Acetaminophen [Tylenol] 1,000 mg PO Q6H PRN PRN tablet 04/25/20 Hydroxyzine HCl 50 mg PO Q8H PRN PRN #180 tab 04/25/20 Nitroglycerin (INPATIENT USE) [Nitrostat] 0.4 mg SUBLINGUAL Q5M PRN tab.subl 04/25/20 Nutritional Supplement [Blue - ORANGE FLAVOR] 1 packet PO BIDCM #60 packet 04/25/20 Polyethylene Glycol 3350 [Miralax] 17 gm PO DAILY@0800 packet 04/25/20 Sodium Hypochlorite [Dakins Solution 0.25% (1/2 Strength)] 1 applic TOPICAL DAILY #1 bottle 04/25/20 morphine solution (IR) [Roxanol (IR oral solution)] 10 mg SL/PO BID PRN PRN 3 Days #3 ml 04/25/20 The following prescriptions were given: Sodium Hypochlorite [Dakins Solution 0.25% (1/2 Strength)] 1 applic TOPICAL DAILY #1 bottle Transmission Status: Pending to [id number] Hydroxyzine HCl 50 mg PO Q8H PRN PRN #180 tab PRN Reason: Anxiety/allergies Transmission Status: Pending to [id number] Nutritional Supplement [Blue - ORANGE FLAVOR] 1 packet PO BIDCM #60 packet Transmission Status: Pending to [id number] morphine solution (IR) [Roxanol (IR oral solution)] 10 mg SL/PO BID PRN PRN 3 Days #3 ml PRN Reason: Pain Score 6-10 Transmission Status: Received by [facility]/pharmacy #[id number] Primary Care Physician: Con Johnson MD [Primary Care Provider] - Please follow up with your Primary Care Physician in: 1 week. Test Results: Test results from this visit will be discussed in further detail at your follow-up appointment, if applicable. Please Follow Up With: [facility] When: Saturday Please Follow Up With: [facility] When: Dr. Magana 1 week after discharge from TCU Proposed Discharge Date: 04/30/20
--- NOTE | 2020-04-25 19:32 | PCM.DC.SUM ---
Discharge Date and Diagnosis - Problem List Patient Problems: Active and Suspected Problems (Last Reviewed 04/16/20 @ 15:[address] Judson Massey MD) Cellulitis of left lower limb (Acute) Infection of left foot (Acute) Debility (Acute) Ulcer of left foot with fat layer exposed (Acute) Recurrent Date of Admission: 04/19/20 Date of Discharge: 04/30/20 - Primary Discharge Diagnosis Acute Problems: Active Problems (Last Reviewed 04/16/20 @ 15:[address] Judson Massey MD) Cellulitis of left lower limb (Acute) Infection of left foot (Acute) Debility (Acute) Ulcer of left foot with fat layer exposed (Acute) Recurrent - Secondary Discharge Diagnosis Chronic Problems: Chronic Problems (Last Reviewed 04/16/20 @ 15:[address] 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) Diabetes mellitus type 2 in obese (Chronic) Depression (Chronic) Allergic rhinitis (Chronic) Gout (Chronic) Muscle spasm (Chronic) Insomnia (Chronic) Type 2 diabetes mellitus without complication (Chronic) Obesity (Chronic) Vitamin D deficiency (Chronic) Ulcer of right foot with fat layer exposed (Chronic) Peripheral arterial occlusive disease (Chronic) Charcot's joint of left foot (Chronic) Type 2 diabetes mellitus with diabetic polyneuropathy (Chronic) Ulcer of abdomen wall with fat layer exposed (Chronic) History of CVA (cerebrovascular accident) (Chronic) Stented coronary artery (Chronic 12/03/18) PTCA and YASIR to proximal and distal CX per Dr. Hatfield @ [facility]:(Promus Premier 4.0 X 12 mm L2 stent from distal left main into proximal LCX; Promus Premier RX 2.25 X 12 mm L1 stent in distal LCX) 12/03/2018:Triple vessel CAD of the LAD, LCX, RCA Successful PTCA/YASIR mid LCX with a 2.5 x 20 Promus Synergy stent; 85%-->0-%, no dissection. 12/24/18:FFR of RCA=0.97, negative, left for medical managemen History of coronary artery bypass graft (Chronic) CABG X 3 vessels [facility]:DANIEL to LAD, reverse SVG to dx and to 2nd OM per Dr. Borjas @ [facility] 09/09/2014 Atherosclerotic heart disease of pauma coronary artery without angina pectoris (Chronic) CABG X 3 vessels [facility]: DANIEL to LAD, reverse SVG to dx and to 2nd OM per Dr. Borjas @ [facility] 09/09/2014; PTCA/YASIR to Left main, LAD, and OM1 per Dr. Hatfield 12/21/2014; History of stroke (Chronic) Carotid artery disease (Chronic) Peripheral vascular disease (Chronic) Hyperlipidemia (Chronic) Coronary artery disease (Chronic) Hypothyroidism (Chronic) Iron deficiency anemia (Chronic) GERD (gastroesophageal reflux disease) (Chronic) Hospital Course and Treatment Imaging Results: 04/19/20 22:56 Diet: Carbohydrate Controlled Type of Dietary Supplement:: Ensure Pudding Is pt able to select menu?: Yes Diet Comments: vanilla at lunch and dinner 04/26/20 08:00 Diet: Clear Liquid Type of Dietary Supplement:: Ensure Pudding Is pt able to select menu?: Yes Diet Comments: vanilla at lunch and dinner Labs (Last 48 Hours) 04/23/20 04/23/20 04/24/20 21:00 21:25 06:13 POC Glucose 51 L 133 H 100 04/24/20 04/24/20 04/24/20 10:49 16:19 21:27 POC Glucose 262 H 192 H 265 H 04/25/20 04/25/20 04/25/20 06:07 10:51 16:03 POC Glucose 140 H 109 158 H Consultations 04/19/20 23:05 Consult: 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 Discharge home with , [facility] . Patient Problems: Active and Suspected Problems (Last Reviewed 04/16/20 @ 15:[address] Judson Massey MD) Cellulitis of left lower limb (Acute) Infection of left foot (Acute) Debility (Acute) Ulcer of left foot with fat layer exposed (Acute) Recurrent - Physical Exam Vitals/I&O's: Vital Signs Temp Pulse Resp BP Pulse Ox 97.0 F L 72 17 116/43 L 98 04/25/20 13:57 04/25/20 13:57 04/25/20 13:57 04/25/20 13:57 04/25/20 13:57 Oxygen Delivery Method Room Air Weight: 85.729 kg Body Mass Index (BMI) 32.4 Finger Stick Blood Glucose 193 Intake and Output for Last 24 Hours 04/23/20 04/24/20 04/25/20 23:59 23:59 23:59 Intake Total 1020 / 1020 1595.75 / 1595.75 930 / 930 Balance 1020 / 1020 1595.75 / 1595.75 930 / 930 Laboratory Results 04/24/20 21:27: POC Glucose 265 H 04/25/20 06:07: POC Glucose 140 H 04/25/20 10:51: POC Glucose 109 04/25/20 16:03: POC Glucose 158 H Current Medications Acetaminophen (Acetaminophen 500 Mg Tablet) 1,000 mg PO Q6H PRN PRN PRN Reason: Pain Score 1-3 Last Admin: 04/21/20 12:52 Dose: 1,000 mg Documented by: Allopurinol (Allopurinol 100 Mg Tablet) 100 mg PO DAILY@0800 [facility] Last Admin: 04/25/20 08:47 Dose: 100 mg Documented by: Alprazolam (Alprazolam 0.25 Mg Tablet) 0.25 mg PO BID PRN PRN PRN Reason: ANXIETY Last Admin: 04/22/20 14:26 Dose: 0.25 mg Documented by: Amlodipine Besylate (Amlodipine 5 Mg Tablet) 5 mg PO DAILY@0800 [facility] Last Admin: 04/25/20 08:46 Dose: 5 mg Documented by: Aspirin (Aspirin E.C. 81 Mg Tablet) 81 mg PO DAILY@0800 [facility] Last Admin: 04/25/20 08:46 Dose: 81 mg Documented by: Bisacodyl (Bisacodyl 10 Mg Suppository) 10 mg RECTAL DAILY PRN PRN Reason: Constipation Calamine/Phenol (Menthol/Lanolin/Calamine/Znox 113 Gm Tube) 1 applic TOPICAL 1000,2200 [facility]; Protocol Last Admin: 04/25/20 08:54 Dose: 1 applicatio Documented by: Calcium Carbonate (Calcium Carbonate 500 Mg Tablet) 500 mg PO BIDCM [facility] Last Admin: 04/25/20 17:53 Dose: 500 mg Documented by: Carvedilol (Carvedilol 25 Mg Tablet) 25 mg PO BIDCM [facility] Last Admin: 04/25/20 17:51 Dose: 25 mg Documented by: Clopidogrel Bisulfate (Clopidogrel Bisulfate 75 Mg Tablet) 75 mg PO DAILY@0800 [facility] Last Admin: 04/25/20 08:59 Dose: 75 mg Documented by: Cyclobenzaprine HCl (Cyclobenzaprine Hcl 10 Mg Tablet) 5 mg PO TID PRN PRN PRN Reason: MUSCLE SPASM Last Admin: 04/22/20 16:11 Dose: 5 mg Documented by: Duloxetine HCl (Duloxetine Hcl 30 Mg Capsule) 30 mg PO QHS [facility] Last Admin: 04/24/20 20:30 Dose: 30 mg Documented by: Ergocalciferol (Ergocalciferol 50,000 Unit Capsule) 50,000 unit PO QWEEK [facility] Last Admin: 04/21/20 05:55 Dose: 50,000 unit Documented by: Ferrous Sulfate (Ferrous Sulfate 325 Mg Tablet) 325 mg PO 1200,1700 [facility] Last Admin: 04/25/20 17:50 Dose: 325 mg Documented by: Glucagon (Glucagon 1 Mg/Ml Syringe) 1 mg IM X1 PRN PRN Reason: HYPOGLYCEMIA Hydroxyzine Pamoate (Hydroxyzine [place] 25 Mg Capsule) 50 mg PO Q8H PRN PRN PRN Reason: Anxiety/allergies Last Admin: 04/25/20 06:18 Dose: 50 mg Documented by: Vancomycin IV Pharmacy to Dose (1 ea/ Sodium Chloride) 500 mls @ 250 mls/hr IV X1 PRN; Protocol PRN Reason: Rx to Dose Cefepime HCl 1 gm/ Sodium (Chloride) 50 mls @ 100 mls/hr IV Q12 [facility] Stop: 04/29/20 08:00 Last Admin: 04/25/20 17:58 Dose: 100 mls/hr Documented by: Sodium Chloride () 250 mls @ 15 mls/hr IV .[id number] PRN PRN Reason: Saline Flush Last Admin: 04/25/20 06:18 Dose: 15 mls/hr Documented by: Vancomycin HCl 750 mg/ Sodium (Chloride) 265 mls @ 250 mls/hr IV Q24H [facility] Last Infusion: 04/24/20 22:33 Dose: Infused Documented by: Insulin Glargine (Insulin Glargine 100 Units/Ml Pen) 20 units SC 0800,1999 [facility] Last Admin: 04/25/20 08:49 Dose: 20 u Documented by: Insulin Glargine (Insulin Glargine 100 Units/Ml Pen) 10 units SC X1 ONE Stop: 04/25/20 20:01 Insulin Human Lispro (Insulin Lispro 100 Unit/Ml Insuln.Pen) 14 unit SC 0800,1700 [facility] Last Admin: 04/25/20 17:49 Dose: 14 u Documented by: Ipratropium Pevely (Ipratropium Pevely 0.06% Nasal [place]) 2 spray NASAL Q6H PRN PRN Reason: CONGESTION Last Admin: 04/22/20 08:03 Dose: 2 sprays Documented by: Isosorbide Mononitrate (Isosorbide Mononitrate 60 Mg Tablet) 60 mg PO QAM [facility] Last Admin: 04/25/20 08:48 Dose: 60 mg Documented by: Isosorbide Mononitrate (Isosorbide Mononitrate 60 Mg Tablet) 120 mg PO QHS [facility] Last Admin: 04/24/20 20:30 Dose: 120 mg Documented by: Lactobacillus Acidophilus (Lactobacillus Acidophilus) 1 tablet PO DAILY@0800 [facility] Last Admin: 04/25/20 08:45 Dose: 1 tablet Documented by: Levothyroxine Sodium (Levothyroxine 75 Mcg Tablet) 75 mcg PO QHS [facility] Last Admin: 04/24/20 20:30 Dose: 75 mcg Documented by: Lisinopril (Lisinopril 10 Mg Tablet) 10 mg PO DAILY@0800 [facility] Last Admin: 04/25/20 08:47 Dose: 10 mg Documented by: Loratadine (Loratadine 10 Mg Tablet) 10 mg PO DAILY@0800 [facility] Last Admin: 04/25/20 08:45 Dose: 10 mg Documented by: Magnesium Hydroxide (Magnesium Hydroxide 30 Ml Udc) 30 ml PO DAILY PRN PRN Reason: Constipation Melatonin (Melatonin 10 Mg Tablet) 5 mg PO 1700 [facility] Last Admin: 04/25/20 17:51 Dose: 5 mg Documented by: Morphine Sulfate (Morphine (Oral Solution) 10mg/0.5ml Syringe) 10 mg SL/PO BID PRN PRN PRN Reason: Pain Score 6-10 Last Admin: 04/24/20 20:30 Dose: 10 mg Documented by: Nitroglycerin (Nitroglycerin (Inpatient Use) 0.4 Mg Tab.Subl) 0.4 mg SUBLINGUAL Q5M PRN PRN Reason: CARDIAC/CHEST PAIN Nutritional Formula (Nutritional Supplement (Blue) Packet) [facility] Last Admin: 04/25/20 17:51 Dose: 1 packet Documented by: Pancrelipase (Creon 24,[address] Capsule) [facility] capsule [facility] Last Admin: 04/25/20 17:53 Dose: 1 capsule Documented by: Pantoprazole Sodium (Pantoprazole Sodium 20 Mg Tablet) 20 mg PO DAILY@0800 [facility] Last Admin: 04/25/20 08:47 Dose: 20 mg Documented by: Polyethylene Glycol (Polyethylene Glycol 3350 17 Gm Packet) 17 gm PO DAILY@0800 [facility] Last Admin: 04/25/20 08:47 Dose: Not Given Documented by: Pravastatin Sodium (Pravastatin 40 Mg Tablet) [facility] Last Admin: 04/24/20 20:30 Dose: 40 mg Documented by: Quetiapine Fumarate (Quetiapine 100 Mg Tablet) 300 [facility] Last Admin: 04/24/20 21:54 Dose: 300 mg Documented by: Senna/Docusate Sodium (Senna/Docusate Sodium 1 Tablet) [facility] Last Admin: 04/25/20 17:52 Dose: 1 tablet Documented by: Sodium Chloride (0.9% Saline Lock 10 Ml Syringe) 10 - 40 ml IV UD PRN PRN Reason: Closed End PICC Flush Last Admin: 04/25/20 17:58 Dose: 10 ml Documented by: Sodium Chloride (0.9 % Nacl (Sterile) Posiflush 10 Ml) 10 - 40 ml IV UD PRN PRN Reason: Port access or dressing change Sodium Hypochlorite (Dakin's Nahomi Half Strength (=0.25%)) 1 applic TOPICAL DAILY@1000 [facility]; Protocol Last Admin: 04/25/20 08:47 Dose: 1 applic Documented by: Trazodone HCl (Trazodone 50 Mg Tablet) 50 mg PO QHS PRN PRN Reason: INSOMNIA Last Admin: 04/22/20 08:03 Dose: 50 mg Documented by: Tuberculin PPD (Tuberculin,Purif.Prot.Deriv. 50 Tu/Ml Vial) 5 tu ID [id number] ONE Stop: 04/27/20 10:01 Discharge Diet: No Restrictions Discharge Activity: Return to Normal Activity, May Shower, Use Walker Weight Bearing Status: No weight bearing Keep extremity elevated above heart level: Left Leg Call your doctor if you observe: Fever of 101 or Higher, Inability to urinate, Inability to have a bowel movement, Shortness of breath, Chest pain, Uncontrolled pain Home Medications: Medications to take at Discharge Levothyroxine Sodium [Levoxyl] 75 mcg PO QHS 03/10/17 Pravastatin Sodium 40 mg PO QHS 03/10/17 amlodipine 5 mg tablet 5 mg PO DAILY tab 05/05/18 glucagon (human recombinant) 1 mg solution for injection 1 mg IM ONCE PRN 11/24/18 Ergocalciferol [Vitamin D] 50,000 unit PO QWEEK 09/21/19 Esomeprazole Magnesium 20 mg PO DAILY 09/21/19 clopidogrel 75 mg tablet 75 mg PO DAILY #90 tab 11/23/19 duloxetine 30 mg capsule,delayed release 30 mg PO QHS cap 01/11/20 fexofenadine 180 mg tablet 180 mg PO DAILY tab 01/12/20 Carvedilol 25 mg PO BID 02/26/20 Isosorbide Mononitrate [Isosorbide Mononitrate ER] 60 mg PO .COMPLEX 02/26/20 Nitroglycerin [Nitrolingual [place] ([facility])] 0.4 mg SL PRN PRN 02/26/20 Allopurinol 100 mg PO DAILY 03/17/20 Calcium Citrate 200 mg PO BID #0 03/17/20 L. Acidophilus/L.bulgaricus [Lactobacillus Tablet] 1 tab PO DAILY 03/17/20 insulin detemir U-100 100 unit/mL (3 mL) subcutaneous pen 36 unit SC BID ml 03/24/20 aspirin 81 mg tablet,delayed release 81 mg PO DAILY 04/05/20 cbd 1 dose PO 4X/DAY PRN 04/05/20 cyclobenzaprine 10 mg tablet 5 mg PO TID PRN tab 04/05/20 insulin aspart U-100 100 unit/mL (3 mL) subcutaneous pen 14 unit SC BID ml 04/05/20 ipratropium bromide 0.03 % nasal spray 2 spray INTRANASAL Q6H PRN ml 04/05/20 levomefolate Ca 3 mg-B6 35 mg-meB12 2 mg-algal oil 90.314 mg capsule 1 cap PO Q6H cap 04/05/20 [id number] 24,000-76,000-120,000 unit capsule,delayed rel 1 cap PO BID cap 04/05/20 quetiapine 100 mg tablet 300 mg PO QHS tab 04/05/20 Melatonin 5 mg PO 1700 04/15/20 traZODone [Desyrel] 50 mg PO QHS 04/15/20 ALPRAZolam [Xanax] 0.25 mg PO BID PRN PRN tab 04/19/20 Ferrous Sulfate 325 mg PO 1200,1700 04/19/20 Insulin Lispro [Humalog KwikPen] See Protocol SC ACHS 04/19/20 Lisinopril [Prinivil] 10 mg PO DAILY 04/19/20 Menthol/Lanolin/Calamine/Znox [Calmoseptine Ointment] 1 applic TOPICAL TID 04/19/20 Acetaminophen [Tylenol] 1,000 mg PO Q6H PRN PRN tablet 04/25/20 Hydroxyzine HCl 50 mg PO Q8H PRN PRN #180 tab 04/25/20 Nitroglycerin (INPATIENT USE) [Nitrostat] 0.4 mg SUBLINGUAL Q5M PRN tab.subl 04/25/20 Nutritional Supplement [Blue - ORANGE FLAVOR] 1 packet PO BIDCM #60 packet 04/25/20 Polyethylene Glycol 3350 [Miralax] 17 gm PO DAILY@0800 packet 04/25/20 Sodium Hypochlorite [Dakins Solution 0.25% (1/2 Strength)] 1 applic TOPICAL DAILY #1 bottle 04/25/20 morphine solution (IR) [Roxanol (IR oral solution)] 10 mg SL/PO BID PRN PRN 3 Days #3 ml 04/25/20 Following Prescriptions Were Given to Patient: Sodium Hypochlorite [Dakins Solution 0.25% (1/2 Strength)] 1 applic TOPICAL DAILY #1 bottle Transmission Status: P[facility] to [id number] Hydroxyzine HCl 50 mg PO Q8H PRN PRN #180 tab PRN Reason: Anxiety/allergies Transmission Status: Pending to [id number] Nutritional Supplement [Blue - ORANGE FLAVOR] 1 packet PO BIDCM #60 packet Transmission Status: Pending to [id number] morphine solution (IR) [Roxanol (IR oral solution)] 10 mg SL/PO BID PRN PRN 3 Days #3 ml PRN Reason: Pain Score 6-10 Transmission Status: Received by [id number] Primary Care Physician: Con Johnson MD [Primary Care Provider] - Please follow up with your Primary Care Physician in: 1 week. Please Follow Up With: [facility] When: Saturday Please Follow Up With: [facility] When: Dr. Magana 1 week after discharge from TCU Disposition: Home with Home Health Minutes spent on discharge:: 35 Patient Condition:: Stable Medical Necessity - Tobacco Use Smoking Status: Never smoker Tobacco Use: Non-smoker Meaningful Use Info Meaningful Use Diagnoses (Choose all that apply): None applicable
[2020-04-25] MEDS: Isosorbide Mononitrate 60 MG Tablet 120 MG PO (19:40)
[2020-04-25] MEDS: Pravastatin 40 MG Tablet PO (19:41)
[2020-04-25] MEDS: DULoxetine Hcl 30 MG Capsule PO (19:41)
[2020-04-25] MEDS: Levothyroxine 75 MCG Tablet PO (19:41)
[2020-04-25 21:25] LABS: Bedside Glucose 66 mg/dL (70-110)
[2020-04-25] MEDS: QUEtiapine 100 MG Tablet 300 MG PO (21:59)
[2020-04-25 22:05] LABS: Bedside Glucose 127 mg/dL (70-110)
[2020-04-25] MEDS: morphine (oral solution) 10MG/0.5ML Syringe 10 MG SL/PO (23:12)
[2020-04-26] MEDS: 0.9% Saline Lock 10 ML Syringe IV ×2 (06:11→21:44)
[2020-04-26 06:12] VITALS: BP 138/56; PULSE 69; RESP 18; TEMP 36.5; O2SAT 96
[2020-04-26 06:21] LABS: Bedside Glucose 101 mg/dL (70-110)
[2020-04-26] MEDS: amLODIPine 5 MG Tablet PO (08:21)
[2020-04-26] MEDS: Pantoprazole Sodium 20 MG Tablet PO (08:21)
[2020-04-26] MEDS: Isosorbide Mononitrate 60 MG Tablet PO (08:21)
[2020-04-26] MEDS: Carvedilol 25 MG Tablet PO ×2 (08:21→17:05)
[2020-04-26] MEDS: Lisinopril 10 MG Tablet PO (08:21)
[2020-04-26] MEDS: ALPRAZolam 0.25 MG Tablet PO (08:25)
--- NOTE | 2020-04-26 10:17 | NURSING ---
Pt scheduled for surgery later today with Dr Henry.
[2020-04-26 10:34] VITALS: PULSE 64; RESP 16; O2SAT 92
[2020-04-26 10:55] LABS: Bedside Glucose 109 mg/dL (70-110)
--- NOTE | 2020-04-26 10:55 | NURSING ---
Patient being taken to surgery at this time via bed and 2 staff members.
--- NOTE | 2020-04-26 11:32 | NURSING ---
Patient's daughter in law called and made this nurse aware her son's (patient's) adeola in a car accident this morning. Power Tong Operator and Helen made aware. Left message with clinical social worker.
[2020-04-26 14:22] VITALS: BP 122/57; PULSE 64; RESP 16; TEMP 36.6; O2SAT 92
[2020-04-26] MEDS: Ferrous Sulfate 325 MG Tablet PO ×2 (15:14→17:05)
--- NOTE | 2020-04-26 15:17 | NURSING ---
Patient returned to unit via bed and 2 staff. Patient says she is doing well.
[2020-04-26] MEDS: hydrOXYzine PAM 25 MG Capsule 50 MG PO (15:35)
--- NOTE | 2020-04-26 15:37 | NURSING ---
Motor Coach Driver in with patient following phone call from daughter in law. Antianxiety medication given per patient request.
--- NOTE | 2020-04-26 16:26 | CHAPLAIN ---
Type of Pastoral Visit ___ Initial Visit ___ Follow-up Visit ___ On-call Visit ___ General Patient Visit ___ Spiritual Assessment ___ Family Conference _x__ Bereavement ___ Rapid Response ___ Code Blue ___ Other (describe below) Pastoral Care Referral From ___ Patient ___ Family _x__ Nurse ___ Physician _x__ Nuclear Radiologist ___ Art History Professor ___ Other (describe below) Sacrament/Intervention _x__ Active listening ___ Anointing ___ Nondenominational _x__ Bereavement ___ Communion _x__ Sharron exploration ___ _x__ Life review _x__ Prayer ___ Reconciliation ___ Sacrament of Sick _x__ Supportive presence ___ Wedding ___ Other (describe below) Pastoral Comments patient is shocked at news of of son's adeola; pt has concerns about her son and their children; pt wonders out loud about her ability to help son in his grief; pt displays personal spiritual strength but also shares spiritual concerns about her family; prayer shared as requested
[2020-04-26 16:35] LABS: Bedside Glucose 245 mg/dL (70-110)
--- NOTE | 2020-04-26 16:55 | CASEMGMT ---
Social Work Followed up with pt after her return from surgery and receiving news that her son'moise sheehan' unexpectedly in car accident. Product Inspection Coordinator in to see pt as well. Pt stated she is in shock, but is leaning on her rachel and that God will help her and her family through this. She indicated she has more of a reason to get better before she goes home because her family will be worrying about other things. Explained insurance will cover pt if she needs to stay a few days longer, but also if she wants to be home with family at this time, she can DC prior to scheduled 04/30. Pt stated she will sleep on it and she how she is and notify SW if she wants to DC at a different time. SW provided emotional support and offered continued visits. Pt appreciative. Will continue to follow. SARAH BETH VieiraW
[2020-04-26] MEDS: Calcium Carbonate 500 MG Tablet PO (17:04)
[2020-04-26] MEDS: Senna/Docusate Sodium 1 Tablet PO (17:04)
[2020-04-26] MEDS: MELATONIN 10 MG TABLET 5 MG PO (17:05)
[2020-04-26] MEDS: Creon 24,000 unit DR Capsule 1 CAP PO (17:05)
[2020-04-26] MEDS: morphine (oral solution) 10MG/0.5ML Syringe 10 MG SL/PO (19:23)
[2020-04-26] MEDS: Insulin Lispro 100 UNIT/ML INSULN.PEN 14 UNIT SC (19:26)
[2020-04-26 21:10] LABS: Bedside Glucose 165 mg/dL (70-110)
[2020-04-26] MEDS: QUEtiapine 100 MG Tablet 300 MG PO (21:39)
[2020-04-26] MEDS: Isosorbide Mononitrate 60 MG Tablet 120 MG PO (21:40)
[2020-04-26] MEDS: DULoxetine Hcl 30 MG Capsule PO (21:41)
[2020-04-26] MEDS: Levothyroxine 75 MCG Tablet PO (21:41)
[2020-04-26] MEDS: Pravastatin 40 MG Tablet PO (21:42)
[2020-04-26 22:27] LABS: Vancomycin, Trough Level 17.7 ug/mL (5.0-15.0)
[2020-04-27] MEDS: 0.9% Saline Lock 10 ML Syringe IV ×2 (05:23→17:27)
[2020-04-27 05:27] VITALS: BP 136/53; PULSE 68; RESP 16; TEMP 36.1; O2SAT 94
[2020-04-27 05:43] LABS: Absolute Lymphocyte Count 1.97 X10^3/uL (0.83-4.51); Absolute Neutrophil Count 4.1 X10^3/uL (2.0-7.7); Basophil# 0.02 X10^3/uL; Basophil% 0.3 % (0-1); Eosinophil# 0.19 X10^3/uL; Eosinophils% 2.7 % (0-5); Hematocrit 33.2 % (37-47); Hemoglobin 9.6 g/dL (12.0-15.0); Lymphocyte # 1.97 X10^3/ul (4.0); Lymphocyte % 28.2 % (19-41); Mean Corp Hgb Conc 28.9 g/dL (32-36); Mean Corpuscular Hgb 23.9 pg (27.0-32.0); Mean Corpuscular Volume 82.8 fL (81-99); Mean Platelet Vol. 9.5 fl (6.2-12.0); Monocyte# 0.72 X10^3/uL; Monocyte% 10.3 % (0-10); NRBC Flagged by Analyzer 0 % (0-5); Neutrophil # 4.05 X10^3/uL (2.7-7.7); Neutrophil % 58.1 % (47-70); POSITIVE MORPHOLOGY YES; Platelet Count 168 K/mm3 (150-450); RBC Distribution Width CV 22.2 % (11.6-14.6); RBC Distribution Width SD 61.1 fl (35.1-43.9); Red Blood Count 4.01 M/mm3 (4.2-5.4)
[2020-04-27 05:50] LABS: Differential Indicated SCAN CRITERIA MET
[2020-04-27 06:00] LABS: Erythrocyte Sedimentation Rate 35 mm/hr (0-30)
[2020-04-27 06:01] LABS: Macrocytosis 1+; Polychromasia RARE
[2020-04-27 06:11] LABS: Anion Gap 5 (5-15); BUN 44 mg/dL (7-18); BUN/Creat Ratio 32.1 RATIO (10-20); Calcium,Total 8.9 mg/dL (8.5-10.1); Chloride 114 mmol/L (98-107); Creatinine, Serum 1.37 mg/dL (0.55-1.02); EST Glomerular Filtration Rate 40 mL/min (>60); Est Glom Filt Rate - Afr Amer 49 mL/min (>60); Estimated Creatinine Clearance 32.05 ml/min; Glucose 81 mg/dL (74-106); Potassium 4.3 mmol/L (3.5-5.1); Sodium Level 141 mmol/L (136-145)
--- NOTE | 2020-04-27 06:40 | PCM.PROGNOTE ---
Patient Problems: Active and Suspected Problems (Last Reviewed 04/16/20 @ 15:[address] Judson Massey MD) Cellulitis of left lower limb (Acute) Infection of left foot (Acute) Debility (Acute) Ulcer of left foot with fat layer exposed (Acute) Recurrent Subjective: This 74-year-old female was seen postoperative day #1 debridement of left foot with delayed primary closure and application of amnio fill (advanced wound healing product that is umbilical and placental derived tissue). She denies fever, chill, nausea, vomiting, shortness of breath, chest pain, calf pain. Her pain is rated as a 3 out of 10. - Physical Exam Vitals/I&O's: Vital Signs Temp Pulse Resp BP Pulse Ox 96.9 F L 68 16 136/53 H 94 04/27/20 05:27 04/27/20 05:27 04/27/20 05:27 04/27/20 05:27 04/27/20 05:27 Oxygen Delivery Method Room Air Weight: 85.729 kg Body Mass Index (BMI) 32.4 Finger Stick Blood Glucose 193 Intake and Output for Last 24 Hours 04/25/20 04/26/20 04/27/20 23:59 23:59 23:59 Intake Total 1605.25 / 1605.25 605 / 605 Balance 1605.25 / 1605.25 605 / 605 General: Alert, Oriented x3, Cooperative HEENT: Atraumatic Extremities: No cyanosis, No edema, Capillary Refill Less than 3 Seconds, No Calf Tenderness, Diminished Peripheral Pulses Skin: Incision - Well aligned and coapted with nylon suture without gapping, erythema, streaking, infection, purulence or odor. No adjacent bogginess or fluctuance on palpation. No active bleeding noted. Musculoskeletal: Muscle Wasting, - - Unchanged rocker-bottom Charcot foot Neurological: - - Lack of epicritic sensation light touch is consistent with neuropathy status Psych/Mental Status: Normal Affect, Appropriate Laboratory Results 04/26/20 10:50: POC Glucose 109 04/26/20 16:27: POC Glucose 245 H 04/26/20 20:32: Vancomycin Trough 17.7 H 04/26/20 21:01: POC Glucose 165 H 04/27/20 05:25: WBC 7.0, RBC 4.01 L, Hgb 9.6 L, Hct 33.2 L, MCV 82.8, MCH 23.9 L, MCHC 28.9 L, RDW Std Deviation 61.1 H, RDW Coeff of Marco 22.2 H, Plt Count 168, MPV 9.5, Immature Gran % (Auto) 0.400, Neut % (Auto) 58.1, Lymph % (Auto) 28.2, [place] % (Auto) 10.3 H, Eos % (Auto) 2.7, Baso % (Auto) 0.3, Absolute Neuts (auto) 4.1, Absolute Lymphs (auto) 1.97, Nucleated RBC % 0, Polychromasia RARE, Macrocytosis 1+, ESR 35 H 04/27/20 05:25: Sodium 141, Potassium 4.3, Chloride 114 H, Carbon Dioxide 22.0, Anion Gap 5, BUN 44 H, Creatinine 1.37 H, Estim Creat Clear Calc 32.05, Est GFR (MDRD) Af Amer 49 L, Est GFR (MDRD) Non-Af 40 L, BUN/Creatinine Ratio 32.1 H, Glucose 81, Calcium 8.9 Current Medications Acetaminophen (Acetaminophen 500 Mg Tablet) 1,000 mg PO Q6H PRN PRN PRN Reason: Pain Score 1-3 Last Admin: 04/21/20 12:52 Dose: 1,000 mg Documented by: Allopurinol (Allopurinol 100 Mg Tablet) 100 mg PO DAILY@0800 [facility] Last Admin: 04/26/20 06:56 Dose: Not Given Documented by: Alprazolam (Alprazolam 0.25 Mg Tablet) 0.25 mg PO BID PRN PRN PRN Reason: ANXIETY Last Admin: 04/26/20 08:25 Dose: 0.25 mg Documented by: Amlodipine Besylate (Amlodipine 5 Mg Tablet) 5 mg PO DAILY@0800 [facility] Last Admin: 04/26/20 08:21 Dose: 5 mg Documented by: Aspirin (Aspirin E.C. 81 Mg Tablet) 81 mg PO DAILY@0800 [facility] Last Admin: 04/26/20 06:55 Dose: Not Given Documented by: Bisacodyl (Bisacodyl 10 Mg Suppository) 10 mg RECTAL DAILY PRN PRN Reason: Constipation Calamine/Phenol (Menthol/Lanolin/Calamine/Znox 113 Gm Tube) 1 applic TOPICAL 1000,2200 [facility]; Protocol Last Admin: 04/26/20 21:51 Dose: Not Given Documented by: Calcium Carbonate (Calcium Carbonate 500 Mg Tablet) 500 mg PO BIDCM [facility] Last Admin: 04/26/20 17:04 Dose: 500 mg Documented by: Carvedilol (Carvedilol 25 Mg Tablet) 25 mg PO BIDCM [facility] Last Admin: 04/26/20 17:05 Dose: 25 mg Documented by: Clopidogrel Bisulfate (Clopidogrel Bisulfate 75 Mg Tablet) 75 mg PO DAILY@0800 [facility] Last Admin: 04/26/20 06:56 Dose: Not Given Documented by: Cyclobenzaprine HCl (Cyclobenzaprine Hcl 10 Mg Tablet) 5 mg PO TID PRN PRN PRN Reason: MUSCLE SPASM Last Admin: 04/22/20 16:11 Dose: 5 mg Documented by: Duloxetine HCl (Duloxetine Hcl 30 Mg Capsule) 30 mg PO QHS [facility] Last Admin: 04/26/20 21:41 Dose: 30 mg Documented by: Ergocalciferol (Ergocalciferol 50,000 Unit Capsule) 50,000 unit PO QWEEK [facility] Last Admin: 04/21/20 05:55 Dose: 50,000 unit Documented by: Ferrous Sulfate (Ferrous Sulfate 325 Mg Tablet) 325 mg PO 1200,1700 [facility] Last Admin: 04/26/20 17:05 Dose: 325 mg Documented by: Glucagon (Glucagon 1 Mg/Ml Syringe) 1 mg IM X1 PRN PRN Reason: HYPOGLYCEMIA Hydroxyzine Pamoate (Hydroxyzine [place] 25 Mg Capsule) 50 mg PO Q8H PRN PRN PRN Reason: Anxiety/allergies Last Admin: 04/26/20 15:35 Dose: 50 mg Documented by: Vancomycin IV Pharmacy to Dose (1 ea/ Sodium Chloride) 500 mls @ 250 mls/hr IV X1 PRN; Protocol PRN Reason: Rx to Dose Cefepime HCl 1 gm/ Sodium (Chloride) 50 mls @ 100 mls/hr IV Q12 [facility] Stop: 04/29/20 08:00 Last Admin: 04/27/20 05:24 Dose: 100 mls/hr Documented by: Sodium Chloride () 250 mls @ 15 mls/hr IV .[id number] PRN PRN Reason: Saline Flush Last Infusion: 04/25/20 06:19 Dose: 0 mls/hr Documented by: Vancomycin HCl 750 mg/ Sodium (Chloride) 265 mls @ 250 mls/hr IV Q24H [facility] Last Infusion: 04/26/20 23:00 Dose: Infused Documented by: Insulin Glargine (Insulin Glargine 100 Units/Ml Pen) 20 units SC 0800,1999 [facility] Last Admin: 04/26/20 21:43 Dose: 20 u Documented by: Insulin Human Lispro (Insulin Lispro 100 Unit/Ml Insuln.Pen) 14 unit SC 0800,1700 [facility] Last Admin: 04/26/20 19:26 Dose: 14 u Documented by: Ipratropium Joseph (Ipratropium Joseph 0.06% Nasal [place]) 2 spray NASAL Q6H PRN PRN Reason: CONGESTION Last Admin: 04/22/20 08:03 Dose: 2 sprays Documented by: Isosorbide Mononitrate (Isosorbide Mononitrate 60 Mg Tablet) 60 mg PO QAM [facility] Last Admin: 04/26/20 08:21 Dose: 60 mg Documented by: Isosorbide Mononitrate (Isosorbide Mononitrate 60 Mg Tablet) 120 mg PO QHS [facility] Last Admin: 04/26/20 21:40 Dose: 120 mg Documented by: Lactobacillus Acidophilus (Lactobacillus Acidophilus) 1 tablet PO DAILY@0800 [facility] Last Admin: 04/26/20 06:54 Dose: Not Given Documented by: Levothyroxine Sodium (Levothyroxine 75 Mcg Tablet) 75 mcg PO QHS [facility] Last Admin: 04/26/20 21:41 Dose: 75 mcg Documented by: Lisinopril (Lisinopril 10 Mg Tablet) 10 mg PO DAILY@0800 [facility] Last Admin: 04/26/20 08:21 Dose: 10 mg Documented by: Loratadine (Loratadine 10 Mg Tablet) 10 mg PO DAILY@0800 [facility] Last Admin: 04/26/20 06:55 Dose: Not Given Documented by: Magnesium Hydroxide (Magnesium Hydroxide 30 Ml Udc) 30 ml PO DAILY PRN PRN Reason: Constipation Melatonin (Melatonin 10 Mg Tablet) 5 mg PO 1700 [facility] Last Admin: 04/26/20 17:05 Dose: 5 mg Documented by: Morphine Sulfate (Morphine (Oral Solution) 10mg/0.5ml Syringe) 10 mg SL/PO BID PRN PRN PRN Reason: Pain Score 6-10 Last Admin: 04/26/20 19:23 Dose: 10 mg Documented by: Nitroglycerin (Nitroglycerin (Inpatient Use) 0.4 Mg Tab.Subl) 0.4 mg SUBLINGUAL Q5M PRN PRN Reason: CARDIAC/CHEST PAIN Nutritional Formula ([facility]ut[facility]al [facility] (Blue) Packet) [facility] Admin: 04/26/20 17:05 Dose: 1 packet Documented by: Pancrelipase (Creon 24,[address] Capsule) [facility] Last Admin: 04/26/20 17:05 Dose: 1 capsule Documented by: Pantoprazole Sodium (Pantoprazole Sodium 20 Mg Tablet) 20 mg PO DAILY@0800 [facility] Last Admin: 04/26/20 08:21 Dose: 20 mg Documented by: Polyethylene Glycol (Polyethylene Glycol 3350 17 Gm Packet) 17 gm PO DAILY@0800 [facility] Last Admin: 04/26/20 06:56 Dose: Not Given Documented by: Pravastatin Sodium ([facility]astatin 40 Mg Tablet) [facility] Admin: 04/26/20 21:42 Dose: 40 mg Documented by: Quetiapine Fumarate (Quetiapine 100 Mg Tablet) [facility] Last Admin: 04/26/20 21:39 Dose: 300 mg Documented by: Senna/Docusate Sodium (Senna/Docusate Sodium 1 Tablet) [facility] Last Admin: 04/26/20 17:04 Dose: 1 tablet Documented by: Sodium Chloride (0.9% Saline Lock 10 Ml Syringe) 10 - 40 ml IV UD PRN PRN Reason: Closed End PICC Flush Last Admin: 04/27/20 05:23 Dose: 20 ml Documented by: Sodium Chloride (0.9 % Nacl (Sterile) Posiflush 10 Ml) 10 - 40 ml IV UD PRN PRN Reason: Port access or dressing change Sodium Hypochlorite (Dakin's [place] Half Strength (=0.25%)) 1 applic TOPICAL DAILY@1000 [facility]; Protocol Last Admin: 04/26/20 10:31 Dose: Not Given Documented by: Trazodone HCl (Trazodone 50 Mg Tablet) 50 mg PO QHS PRN PRN Reason: INSOMNIA Last Admin: 04/22/20 08:03 Dose: 50 mg Documented by: Tuberculin PPD (Tuberculin,Purif.Prot.Deriv. 50 Tu/Ml Vial) 5 tu ID X1 ONE Stop: 04/27/20 10:01 Medical Necessity - Tobacco Use Smoking Status: Never smoker Tobacco Use: Non-smoker Assessment/Plan All Active Problems (Last Reviewed 04/16/20 @ 15:[address] Judson Massey MD) Cellulitis of left lower limb (Acute) Infection of left foot (Acute) Debility (Acute) Nonhealing surgical wound (Acute) Ulcer of right foot with necrosis of bone (Resolved) Ulcer of left foot with fat layer exposed (Acute) Chest pain (Acute) -s/p I+D / debridement left foot on 04/15/20 due to gas / abscess infection and now postoperative day #1 debridement/application of advanced wound healing product/delayed primary closure of left foot -Uncontrolled diabetes with neuropathy -Non acute Charcot midfoot, left -Other comorbidities: coronary artery disease, hypertension, GERD, history of blood clots and history of blood transfusion, history of cerebrovascular accidents, hyperlipidemia, irritable bowel syndrome, history of iron deficiency anemia, obesity, osteoporosis, history of gastric bypass, recent abdominal surgery is noted with delayed healing Left foot healing well, clinically no evidence of infection, tissues viable. An updated wet-to-dry Dakin dressing was applied over the primary closure sites. To keep clean, dry, and intact. This will be changed biweekly at this time. I discussed the patient's recent surgical intervention she was reassured no signs of infection or devitalized tissue was identified. Prior cultures: Polyorganism noted to wound cultures, continue w/ antibiotics per ID/Dr. Webb. She continues on cefepime and vancomycin. She remains afebrile with vital signs stable. No weightbearing left foot, keep foot elevated. DVT Prophylaxis, Diabetes and other medical problems: per Dr. Rush. Podiatry will continue to follow closely. Please call if you have any questions. After discharge, I recommend she follows up with the foot and ankle center within 1 week. Ivanna Magana DPM, [facility]
[2020-04-27 06:46] LABS: Bedside Glucose 91 mg/dL (70-110)
--- NOTE | 2020-04-27 07:07 | DCINST_ITS ---
Discharge Diet: No Restrictions Discharge Activity: Return to Normal Activity, May Shower - With shower bag, Use Walker Weight Bearing Status: No weight bearing - Left lower extremity. Use assistive devices. Keep extremity elevated above heart level: Left Leg Call your doctor if your incision/area has: Continuous Slow Oozing, Sudden Increased Bleeding, Increased Pain/ Swelling, Increased Redness, Foul Smelling Discharge, Swelling at the incision site Call your doctor if you observe: Fever of 101 or Higher, Inability to urinate, Inability to have a bowel movement, Shortness of breath, Chest pain, Calf discomfort, Uncontrolled pain Cleanse incision/area with: Keep Dressing Clean & Dry Allergies/Adverse Reactions: Allergies doxycycline Allergy (Severe, Verified 04/14/20 14:31) all over body hives and itching atorvastatin calcium [From Lipitor] Allergy (Verified 04/14/20 14:31) Unknown bupropion HCl [From Wellbutrin] Allergy (Verified 04/14/20 14:31) Unknown mannitol [From Reclast] Allergy (Verified 04/14/20 14:31) joint pain, unable to breathe, unable to walk propoxyphene napsylate [From Darvocet-N 100] Allergy (Verified 04/14/20 14:31) Unknown Quinolones Allergy (Verified 04/14/20 14:31) Unknown Tetanus Vaccines and Toxoid [Tetanus Vaccines & Toxoid] Allergy (Verified 04/14/20 14:31) Chest tightness tizanidine Allergy (Verified 04/14/20 14:31) Unknown zoledronic acid [From Reclast] Allergy (Verified 04/14/20 14:31) joint pain,unable to breathe, unaable to walk JOINT PAIN,UNABLE TO BREATHE,UNABLE TO WALK pravastatin Adverse Reaction (Severe, Verified 04/14/20 14:31) Myalgias gemfibrozil Adverse Reaction (Intermediate, Verified 04/14/20 14:31) Unknown NSAIDS (Non-Steroidal Anti-Inflamma Adverse Reaction (Verified 04/14/20 14:31) Other Medications to take at Discharge Levothyroxine Sodium [Levoxyl] 75 mcg PO QHS 03/10/17 Pravastatin Sodium 40 mg PO QHS 03/10/17 amlodipine 5 mg tablet 5 mg PO DAILY tab 05/05/18 glucagon (human recombinant) 1 mg solution for injection 1 mg IM ONCE PRN 11/24/18 Ergocalciferol [Vitamin D] 50,000 unit PO QWEEK 09/21/19 Esomeprazole Magnesium 20 mg PO DAILY 09/21/19 clopidogrel 75 mg tablet 75 mg PO DAILY #90 tab 11/23/19 duloxetine 30 mg capsule,delayed release 30 mg PO QHS cap 01/11/20 fexofenadine 180 mg tablet 180 mg PO DAILY tab 01/12/20 Carvedilol 25 mg PO BID 02/26/20 Isosorbide Mononitrate [Isosorbide Mononitrate ER] 60 mg PO .COMPLEX 02/26/20 Nitroglycerin [Nitrolingual [place] ([facility])] 0.4 mg SL PRN PRN 02/26/20 Allopurinol 100 mg PO DAILY 03/17/20 Calcium Citrate 200 mg PO BID #0 03/17/20 L. Acidophilus/L.bulgaricus [Lactobacillus Tablet] 1 tab PO DAILY 03/17/20 insulin detemir U-100 100 unit/mL (3 mL) subcutaneous pen 36 unit SC BID ml 03/24/20 aspirin 81 mg tablet,delayed release 81 mg PO DAILY 04/05/20 cbd 1 dose PO 4X/DAY PRN 04/05/20 cyclobenzaprine 10 mg tablet 5 mg PO TID PRN tab 04/05/20 insulin aspart U-100 100 unit/mL (3 mL) subcutaneous pen 14 unit SC BID ml 04/05/20 ipratropium bromide 0.03 % nasal spray 2 spray INTRANASAL Q6H PRN ml 04/05/20 levomefolate Ca 3 mg-B6 35 mg-meB12 2 mg-algal oil 90.314 mg capsule 1 cap PO Q6H cap 04/05/20 [id number] 24,000-76,000-120,000 unit capsule,delayed rel 1 cap PO BID cap 04/05/20 quetiapine 100 mg tablet 300 mg PO QHS tab 04/05/20 Melatonin 5 mg PO 1700 04/15/20 traZODone [Desyrel] 50 mg PO QHS 04/15/20 ALPRAZolam [Xanax] 0.25 mg PO BID PRN PRN tab 04/19/20 Ferrous Sulfate 325 mg PO 1200,1700 04/19/20 Insulin Lispro [Humalog KwikPen] See Protocol SC ACHS 04/19/20 Lisinopril [Prinivil] 10 mg PO DAILY 04/19/20 Menthol/Lanolin/Calamine/Znox [Calmoseptine Ointment] 1 applic TOPICAL TID 04/19/20 Acetaminophen [Tylenol] 1,000 mg PO Q6H PRN PRN tab 04/25/20 Hydroxyzine HCl 50 mg PO Q8H PRN PRN #180 tab 04/25/20 Nitroglycerin (INPATIENT USE) [Nitrostat] 0.4 mg SUBLINGUAL Q5M PRN tab.subl 04/25/20 Nutritional Supplement [Blue - ORANGE FLAVOR] 1 packet PO BIDCM #60 packet 04/25/20 Polyethylene Glycol 3350 [Miralax] 17 gm PO DAILY@0800 packet 04/25/20 Sodium Hypochlorite [Dakins Solution 0.25% (1/2 Strength)] 1 applic TOPICAL DAILY #1 bottle 04/25/20 morphine solution (IR) [Roxanol (IR oral solution)] 10 mg SL/PO BID PRN PRN 3 Days #3 ml 04/25/20 The following prescriptions were given: Sodium Hypochlorite [Dakins Solution 0.25% (1/2 Strength)] 1 applic TOPICAL DAILY #1 bottle Transmission Status: Received by [id number] Hydroxyzine HCl 50 mg PO Q8H PRN PRN #180 tab PRN Reason: Anxiety/allergies Transmission Status: Received by [id number] Nutritional Supplement [Blue - ORANGE FLAVOR] 1 packet PO BIDCM #60 packet Transmission Status: Received by [id number] morphine solution (IR) [Roxanol (IR oral solution)] 10 mg SL/PO BID PRN PRN 3 Days #3 ml PRN Reason: Pain Score 6-10 Transmission Status: Received by [id number] Primary Care Physician: Con Johnson MD [Primary Care Provider] - Please follow up with your Primary Care Physician in: 1 week. Test Results: Test results from this visit will be discussed in further detail at your follow- up appointment, if applicable. Please Follow Up With: [facility] When: Saturday Please Follow Up With: Ivanna Magana DPM When: 1 week after TCU d/c; at [facility] [place], Proposed Discharge Date: 04/30/20
[2020-04-27] MEDS: hydrOXYzine PAM 25 MG Capsule 50 MG PO ×2 (08:53→17:59)
[2020-04-27] MEDS: Calcium Carbonate 500 MG Tablet PO ×2 (08:54→17:17)
[2020-04-27] MEDS: Carvedilol 25 MG Tablet PO ×2 (08:55→17:15)
[2020-04-27] MEDS: Creon 24,000 unit DR Capsule 1 CAP PO ×2 (08:55→17:15)
[2020-04-27] MEDS: Loratadine 10 MG Tablet PO (08:55)
[2020-04-27] MEDS: Lisinopril 10 MG Tablet PO (08:56)
[2020-04-27] MEDS: Aspirin E.C. 81 MG Tablet PO (08:56)
[2020-04-27] MEDS: amLODIPine 5 MG Tablet PO (08:56)
[2020-04-27] MEDS: Clopidogrel Bisulfate 75 MG Tablet PO (08:57)
[2020-04-27] MEDS: Allopurinol 100 MG Tablet PO (08:57)
[2020-04-27] MEDS: Pantoprazole Sodium 20 MG Tablet PO (08:57)
[2020-04-27] MEDS: Isosorbide Mononitrate 60 MG Tablet PO (08:58)
[2020-04-27] MEDS: Insulin Lispro 100 UNIT/ML INSULN.PEN 14 UNIT SC ×2 (09:00→17:42)
[2020-04-27] MEDS: Menthol/Lanolin/Calamine/Znox 113 GM Tube 1 APPLIC TOPICAL ×2 (09:05→20:39)
[2020-04-27] MEDS: Ferrous Sulfate 325 MG Tablet PO ×2 (10:46→17:18)
[2020-04-27] MEDS: Tuberculin,Purif.prot.deriv. 50 TU/ML Vial 5 ML ID (10:46)
[2020-04-27] MEDS: DAKIN'S SOL HALF STRENGTH (=0.25%) 1 APPLIC TOPICAL (10:47)
[2020-04-27] MEDS: Acetaminophen 500 MG Tablet 1000 MG PO ×2 (10:56→20:47)
[2020-04-27 11:01] LABS: Bedside Glucose 255 mg/dL (70-110)
[2020-04-27 13:42] VITALS: PULSE 77; RESP 18; TEMP 36.3; O2SAT 94
--- NOTE | 2020-04-27 14:59 | CASEMGMT ---
Social Work IDT met with patient and via conference call for care plan meeting. Discussed patient's progress in therapy. Pt is Frorest for bed mobility, tx and to ambulate 20 ft with FWW w/knee sling, as she is NWB on LLE. Pt is adlib in room with FWW. Pt is Forrest with toileting and all ADLS. Pt is on a carb controlled, DC'd ensure pudding, but receiving Blue, good intake. Pt is still okay to DC 04/30 home with [facility]. Rae Ruiz, PRESS TENDER LONG GOODS TRAFFIC MANAGER
[2020-04-27] MEDS: morphine (oral solution) 10MG/0.5ML Syringe 10 MG SL/PO (16:27)
[2020-04-27 16:55] LABS: Bedside Glucose 112 mg/dL (70-110)
[2020-04-27] MEDS: MELATONIN 10 MG TABLET 5 MG PO (17:16)
[2020-04-27] MEDS: QUEtiapine 100 MG Tablet 300 MG PO (20:38)
[2020-04-27] MEDS: Isosorbide Mononitrate 60 MG Tablet 120 MG PO (20:42)
[2020-04-27] MEDS: DULoxetine Hcl 30 MG Capsule PO (20:42)
[2020-04-27] MEDS: Levothyroxine 75 MCG Tablet PO (20:43)
[2020-04-27] MEDS: Pravastatin 40 MG Tablet PO (20:43)
[2020-04-27 21:36] LABS: Bedside Glucose 237 mg/dL (70-110)
--- NOTE | 2020-04-27 21:40 | NURSING ---
Pt refused Lantus insulin, refused totake earlier alos, states lets not take it because my blood sugar has been getting low advised pt what result of this time blood sugar, cont to refuse
[2020-04-28] MEDS: 0.9% Saline Lock 10 ML Syringe IV ×3 (06:14→20:17)
[2020-04-28] MEDS: hydrOXYzine PAM 25 MG Capsule 50 MG PO ×2 (06:14→16:12)
[2020-04-28 06:15] LABS: Bedside Glucose 135 mg/dL (70-110)
[2020-04-28 06:19] VITALS: BP 144/61; PULSE 68; RESP 16; TEMP 36.6; O2SAT 94
[2020-04-28] MEDS: Insulin Lispro 100 UNIT/ML INSULN.PEN 14 UNIT SC ×2 (08:50→17:42)
[2020-04-28] MEDS: Loratadine 10 MG Tablet PO (08:57)
[2020-04-28] MEDS: Aspirin E.C. 81 MG Tablet PO (08:58)
[2020-04-28] MEDS: amLODIPine 5 MG Tablet PO (08:58)
[2020-04-28] MEDS: Creon 24,000 unit DR Capsule 1 CAP PO ×2 (08:58→17:48)
[2020-04-28] MEDS: Carvedilol 25 MG Tablet PO ×2 (08:58→17:47)
[2020-04-28] MEDS: Clopidogrel Bisulfate 75 MG Tablet PO (08:59)
[2020-04-28] MEDS: Lisinopril 10 MG Tablet PO (09:00)
[2020-04-28] MEDS: Allopurinol 100 MG Tablet PO (09:00)
[2020-04-28] MEDS: Pantoprazole Sodium 20 MG Tablet PO (09:00)
[2020-04-28] MEDS: Calcium Carbonate 500 MG Tablet PO ×2 (09:00→17:49)
[2020-04-28] MEDS: Menthol/Lanolin/Calamine/Znox 113 GM Tube 1 APPLIC TOPICAL ×2 (10:46→20:09)
[2020-04-28 10:48] VITALS: BP 126/53; PULSE 69
[2020-04-28] MEDS: Isosorbide Mononitrate 60 MG Tablet PO (10:48)
[2020-04-28 11:26] LABS: Bedside Glucose 346 mg/dL (70-110)
[2020-04-28] MEDS: Insulin Lispro 100 UNIT/ML INSULN.PEN 10 UNIT SC (11:53)
[2020-04-28] MEDS: Ferrous Sulfate 325 MG Tablet PO ×2 (11:53→17:47)
--- NOTE | 2020-04-28 13:08 | CHAPLAIN ---
Type of Pastoral Visit ___ Initial Visit _x__ Follow-up Visit ___ On-call Visit ___ General Patient Visit ___ Spiritual Assessment ___ Family Conference ___ Bereavement ___ Rapid Response ___ Code Blue ___ Other (describe below) Pastoral Care Referral From _x__ Patient ___ Family ___ Nurse ___ Physician ___ Soda Dry House Operator ___ Warp Doffer ___ Other (describe below) Sacrament/Intervention ___ Active listening ___ Anointing ___ Tenriism _x__ Bereavement ___ Communion ___ Sharron exploration ___ ___ Life review _x__ Prayer ___ Reconciliation ___ Sacrament of Sick _x__ Supportive presence ___ Wedding ___ Other (describe below) Pastoral Comments follow up visit with patient for grief support; pt states that this is really going to be hard but I/family will get through this; pt states that she relies on her sharron in God and that He has gotten me through this before; pt had first and remembers the support of sharron, jewish, and family; pt has concern mostly for her son and for the children left behind by their mother's ; otherwise pt appears and states that she is grieving appropriately; pt sees herself as a caregiver and will be giving support to her family; prayer and presence welcomed
[2020-04-28 13:34] VITALS: BP 137/43; PULSE 76; RESP 14; TEMP 36.2; O2SAT 98
[2020-04-28 16:51] LABS: Bedside Glucose 145 mg/dL (70-110)
--- NOTE | 2020-04-28 17:27 | NURSING ---
Resident and family notified of staff members testing positive for COVID 19
[2020-04-28] MEDS: MELATONIN 10 MG TABLET 5 MG PO (17:48)
--- NOTE | 2020-04-28 19:19 | PN.ID_ITS ---
Patient Problems: Active and Suspected Problems (Last Reviewed 04/16/20 @ 15:[address] Judson Massey MD) Cellulitis of left lower limb (Acute) Infection of left foot (Acute) Debility (Acute) Ulcer of left foot with fat layer exposed (Acute) Recurrent Subjective: Feeling ok, no fever, no n/v/d. Foot wrapped. - Physical Exam Vitals/I&O's: Vital Signs Temp Pulse Resp BP Pulse Ox 97.1 F L 76 14 137/43 H 98 04/28/20 13:34 04/28/20 13:34 04/28/20 13:34 04/28/20 13:34 04/28/20 13:34 Oxygen Delivery Method Room Air Weight: 85.729 kg Body Mass Index (BMI) 32.4 Finger Stick Blood Glucose 193 Intake and Output for Last 24 Hours 04/26/20 04/27/20 04/28/20 23:59 23:59 23:59 Intake Total 605 / 605 965 / 965 820 / 820 Output Total 1000 / 1000 Balance 605 / 605 965 / 965 -180 / -180 General: Alert, Cooperative, No apparent distress Lungs: Clear to auscultation, Normal air movement Cardiovascular: Regular rate, Regular Rhythm Abdomen: Soft, Non Tender, Non-Distended Skin: Ulcer/ Wound - foot wrapped Laboratory Results 04/27/20 21:21: POC Glucose 237 H 04/28/20 06:06: POC Glucose 135 H 04/28/20 11:17: POC Glucose 346 H 04/28/20 16:40: POC Glucose 145 H Current Medications Acetaminophen (Acetaminophen 500 Mg Tablet) 1,000 mg PO Q6H PRN PRN PRN Reason: Pain Score 1-3 Last Admin: 04/27/20 20:47 Dose: 1,000 mg Documented by: Allopurinol (Allopurinol 100 Mg Tablet) 100 mg PO DAILY@0800 [facility] Last Admin: 04/28/20 09:00 Dose: 100 mg Documented by: Alprazolam (Alprazolam 0.25 Mg Tablet) 0.25 mg PO BID PRN PRN PRN Reason: ANXIETY Last Admin: 04/26/20 08:25 Dose: 0.25 mg Documented by: Amlodipine Besylate (Amlodipine 5 Mg Tablet) 5 mg PO DAILY@0800 [facility] Last Admin: 04/28/20 08:58 Dose: 5 mg Documented by: Aspirin (Aspirin E.C. 81 Mg Tablet) 81 mg PO DAILY@0800 [facility] Last Admin: 04/28/20 08:58 Dose: 81 mg Documented by: Bisacodyl (Bisacodyl 10 Mg Suppository) 10 mg RECTAL DAILY PRN PRN Reason: Constipation Calamine/Phenol (Menthol/Lanolin/Calamine/Znox 113 Gm Tube) 1 applic TOPICAL 1000,2200 [facility]; Protocol Last Admin: 04/28/20 10:46 Dose: 1 applicatio Documented by: Calcium Carbonate (Calcium Carbon[facility] 500 Mg Tablet) [facility] Last Admin: 04/28/20 17:49 Dose: 500 mg Documented by: Carvedilol (Carvedilol 25 Mg Tablet) [facility] Last Admin: 04/28/20 17:47 Dose: 25 mg Documented by: Clopidogrel Bisulfate (Clopidogrel Bisulfate 75 Mg Tablet) 75 mg PO DAILY@0800 [facility] Last Admin: 04/28/20 08:59 Dose: 75 mg Documented by: Cyclobenzaprine HCl (Cyclobenzaprine Hcl 10 Mg Tablet) 5 mg PO TID PRN PRN PRN Reason: MUSCLE SPASM Last Admin: 04/22/20 16:11 Dose: 5 mg Documented by: Duloxetine HCl (Duloxetine Hcl 30 Mg Capsule) 30 mg PO QHS [facility] Last Admin: 04/27/20 20:42 Dose: 30 mg Documented by: Ergocalciferol (Ergocalciferol 50,000 Unit Capsule) 50,000 unit PO QWEEK [facility] Last Admin: 04/28/20 06:14 Dose: 50,000 unit Documented by: Ferrous Sulfate (Ferrous Sulfate 325 Mg Tablet) 325 mg PO 1200,1700 [facility] Last Admin: 04/28/20 17:47 Dose: 325 mg Documented by: Glucagon (Glucagon 1 Mg/Ml Syringe) 1 mg IM X1 PRN PRN Reason: HYPOGLYCEMIA Hydroxyzine Pamoate (Hydroxyzine [place] 25 Mg Capsule) 50 mg PO Q8H PRN PRN PRN Reason: Anxiety/allergies Last Admin: 04/28/20 16:12 Dose: 50 mg Documented by: Vancomycin IV Pharmacy to Dose (1 ea/ Sodium Chloride) 500 mls @ 250 mls/hr IV X1 PRN; Protocol PRN Reason: Rx to Dose Cefepime HCl 1 gm/ Sodium (Chloride) 50 mls @ 100 mls/hr IV Q12 [facility] Stop: 04/29/20 08:00 Last Infusion: 04/28/20 18:48 Dose: Infused Documented by: Sodium Chloride () 250 mls @ 15 mls/hr IV .[id number] PRN PRN Reason: Saline Flush Last Infusion: 04/25/20 06:19 Dose: 0 mls/hr Documented by: Vancomycin HCl 750 mg/ Sodium (Chloride) 265 mls @ 250 mls/hr IV Q24H [facility] Last Infusion: 04/27/20 22:45 Dose: Infused Documented by: Insulin Glargine (Insulin Glargine 100 Units/Ml Pen) 20 units SC 0800,2000 [facility] Last Admin: 04/28/20 09:23 Dose: 20 u Documented by: Insulin Human Lispro (Insulin Lispro 100 Unit/Ml Insuln.Pen) 14 unit SC 0800,1700 [facility] Last Admin: 04/28/20 17:42 Dose: 14 u Documented by: Ipratropium [place] (Ipratropium [place] 0.06% Nasal [place]) 2 spray NASAL Q6H PRN PRN Reason: CONGESTION Last Admin: 04/22/20 08:03 Dose: 2 sprays Documented by: Isosorbide Mononitrate (Isosorbide Mononitrate 60 Mg Tablet) 60 mg PO QAM [facility] Last Admin: 04/28/20 10:48 Dose: 60 mg Documented by: Isosorbide Mononitrate (Isosorbide Mononitrate 60 Mg Tablet) 120 mg PO QHS [facility] Last Admin: 04/27/20 20:42 Dose: 120 mg Documented by: Lactobacillus Acidophilus (Lactobacillus Acidophilus) 1 tablet PO DAILY@0800 [place] [facility] Last Admin: 04/28/20 08:57 Dose: 1 tablet Documented by: Levothyroxine Sodium (Levothyroxine 75 Mcg Tablet) 75 mcg PO QHS [facility] Last Admin: 04/27/20 20:43 Dose: 75 mcg Documented by: Lisinopril (Lisinopril 10 Mg Tablet) 10 mg PO DAILY@0800 [facility] Last Admin: 04/28/20 09:00 Dose: 10 mg Documented by: Loratadine (Loratadine 10 Mg Tablet) 10 mg PO DAILY@0800 [facility] Last Admin: 04/28/20 08:57 Dose: 10 mg Documented by: Magnesium Hydroxide (Magnesium Hydroxide 30 Ml Udc) 30 ml PO DAILY PRN PRN Reason: Constipation Melatonin (Melatonin 10 Mg Tablet) 5 mg PO 1700 [facility] Last Admin: 04/28/20 17:48 Dose: 5 mg Documented by: Morphine Sulfate (Morphine (Oral Solution) 10mg/0.5ml Syringe) 10 mg SL/PO BID PRN PRN PRN Reason: Pain Score 6-10 Last Admin: 04/27/20 16:27 Dose: 10 mg Documented by: Nitroglycerin (Nitroglycerin (Inpatient Use) 0.4 Mg Tab.Subl) 0.4 mg SUBLINGUAL Q5M PRN PRN Reason: CARDIAC/CHEST PAIN Nutritional Formula (Nutritional [facility] (Blue) Packet) [facility] Last Admin: 04/28/20 17:46 Dose: 1 packet Documented by: Pancrelipase (Creon 24,[address] Capsule) [facility] Last Admin: 04/28/20 17:48 Dose: 1 capsule Documented by: Pantoprazole Sodium (Pantoprazole Sodium 20 Mg Tablet) 20 mg PO DAILY@0800 [facility] Last Admin: 04/28/20 09:00 Dose: 20 mg Documented by: Polyethylene Glycol (Polyethylene Glycol 3350 17 Gm Packet) 17 gm PO DAILY@0800 [facility] Last Admin: 04/28/20 08:47 Dose: Not Given Documented by: Pravastatin Sodium ([facility]astatin 40 Mg Tablet) [facility] Last Admin: 04/27/20 20:43 Dose: 40 mg Documented by: Quetiapine Fumarate (Quetiapine 100 Mg Tablet) [facility] Last Admin: 04/27/20 20:38 Dose: 300 mg Documented by: Senna/Docusate Sodium (Senna/Docusate Sodium 1 Tablet) [facility] Last Admin: 04/28/20 17:49 Dose: Not Given Documented by: Sodium Chloride (0.9% Saline Lock 10 Ml Syringe) 10 - 40 ml IV UD PRN PRN Reason: Closed End PICC Flush Last Admin: 04/28/20 17:51 Dose: 20 ml Documented by: Sodium Chloride (0.9 % Nacl (Sterile) Posiflush 10 Ml) 10 - 40 ml IV UD PRN PRN Reason: Port access or dressing change Sodium Hypochlorite (Dakin's [place] Half Strength (=0.25%)) 1 applic TOPICAL DAILY@1000 [facility]; Protocol Last Admin: 04/28/20 10:47 Dose: Not Given Documented by: Trazodone HCl (Trazodone 50 Mg Tablet) 50 mg PO QHS PRN PRN Reason: INSOMNIA Last Admin: 04/22/20 08:03 Dose: 50 mg Documented by: Medical Necessity - Tobacco Use Smoking Status: Never smoker Tobacco Use: Non-smoker Route of nutrition/ use of supplements: [] Nutritional Intake: [] IV Site: [] [place] Catheter: [] - Assessment/Plan Antibiotics: [] Assessment/Plan: [] Active and Suspected Problems (Last Reviewed 04/16/20 @ 15:[address] Judson Massey MD) Cellulitis of left lower limb (Acute) Infection of left foot (Acute) Debility (Acute) Ulcer of left foot with fat layer exposed (Acute) Recurrent L foot infection - d/w Dr. Magana, did not see bone involvement in OR 04/15/20. Surg cx with MRSE x2, strep mitis, PsA, coryne, e faecalis. On vanc/cefepime. Plan will be for picc and at least 2 weeks iv abx with stop date 04/29/20. Weekly bmp, cbc, esr, and vanc trough. OR for closure 04/26, minimal signs of ongoing infection, ok to complete course of abx tomorrow and then d/c home. Will follow as needed
[2020-04-28] MEDS: morphine (oral solution) 10MG/0.5ML Syringe 10 MG SL/PO (20:03)
[2020-04-28] MEDS: QUEtiapine 100 MG Tablet 300 MG PO (20:11)
[2020-04-28] MEDS: Isosorbide Mononitrate 60 MG Tablet 120 MG PO (20:11)
[2020-04-28] MEDS: DULoxetine Hcl 30 MG Capsule PO (20:11)
[2020-04-28] MEDS: Levothyroxine 75 MCG Tablet PO (20:12)
[2020-04-28] MEDS: Pravastatin 40 MG Tablet PO (20:12)
[2020-04-28 20:36] LABS: Bedside Glucose 86 mg/dL (70-110)
[2020-04-29] MEDS: 0.9% Saline Lock 10 ML Syringe IV (06:18)
[2020-04-29 06:20] LABS: Bedside Glucose 103 mg/dL (70-110)
[2020-04-29 06:22] VITALS: BP 126/54; PULSE 70; RESP 16; TEMP 36.3; O2SAT 97
--- NOTE | 2020-04-29 08:11 | NURSING ---
Dressing to the left foot remains D&I at this time. Dressing is to be changed twice weekly and was changed by Dr Magana on 04/27/20. Pt is scheduled for discharge on 04/30/20. states she will be following up at the wound healing center and will have home health care as well. pt denies further needs at this time.
[2020-04-29] MEDS: Aspirin E.C. 81 MG Tablet PO (08:47)
[2020-04-29] MEDS: Loratadine 10 MG Tablet PO (08:47)
[2020-04-29] MEDS: amLODIPine 5 MG Tablet PO (08:47)
[2020-04-29] MEDS: Creon 24,000 unit DR Capsule 1 CAP PO ×2 (08:47→17:57)
[2020-04-29] MEDS: Carvedilol 25 MG Tablet PO ×2 (08:47→17:55)
[2020-04-29] MEDS: Senna/Docusate Sodium 1 Tablet PO ×2 (08:48→17:55)
[2020-04-29] MEDS: Pantoprazole Sodium 20 MG Tablet PO (08:48)
[2020-04-29] MEDS: Calcium Carbonate 500 MG Tablet PO ×2 (08:48→17:55)
[2020-04-29] MEDS: Lisinopril 10 MG Tablet PO (08:48)
[2020-04-29] MEDS: Clopidogrel Bisulfate 75 MG Tablet PO (08:48)
[2020-04-29] MEDS: Insulin Lispro 100 UNIT/ML INSULN.PEN 10 UNIT SC (08:51)
[2020-04-29] MEDS: Allopurinol 100 MG Tablet PO (08:53)
[2020-04-29] MEDS: hydrOXYzine PAM 25 MG Capsule 50 MG PO ×2 (09:03→17:48)
--- NOTE | 2020-04-29 09:16 | MDS.RN ---
Information for the mds was obtained from review of the clinical record, interview of resident, staff, and direct observation of resident's care.
[2020-04-29] MEDS: Menthol/Lanolin/Calamine/Znox 113 GM Tube 1 APPLIC TOPICAL ×2 (10:55→20:59)
[2020-04-29 10:56] LABS: Bedside Glucose 319 mg/dL (70-110)
[2020-04-29] MEDS: Isosorbide Mononitrate 60 MG Tablet PO (10:58)
[2020-04-29] MEDS: Ferrous Sulfate 325 MG Tablet PO ×2 (11:51→17:55)
--- NOTE | 2020-04-29 13:20 | PN_ITS ---
Patient Problems: Active and Suspected Problems (Last Reviewed 04/16/20 @ 15:[address] Judson Massey MD) Cellulitis of left lower limb (Acute) Infection of left foot (Acute) Debility (Acute) Ulcer of left foot with fat layer exposed (Acute) Recurrent Subjective: This 74-year-old female was seen postoperative day #3 debridement of left foot with delayed primary closure and application of advanced wound healing product. She denies fever, chill, nausea, vomiting, shortness of breath, chest pain, calf pain. Her pain is mild and intermittent. Her proposed discharge date is tomorrow. She relates she feels more energetic. - Physical Exam Vitals/I&O's: Vital Signs Temp Pulse Resp BP Pulse Ox 97.4 F L 70 16 126/54 H 97 04/29/20 06:22 04/29/20 06:22 04/29/20 06:22 04/29/20 06:22 04/29/20 06:22 Oxygen Delivery Method Room Air Weight: 85.729 kg Body Mass Index (BMI) 32.4 Finger Stick Blood Glucose 193 Intake and Output for Last 24 Hours 04/27/20 04/28/20 04/29/20 23:59 23:59 23:59 Intake Total 965 / 965 1325 / 1325 650 / 650 Output Total 1000 / 1000 Balance 965 / 965 325 / 325 650 / 650 General: Alert, Oriented x3, Cooperative Extremities: No cyanosis, Capillary Refill Less than 3 Seconds, No Calf Tenderness, Diminished Peripheral Pulses, Edema Skin: Ulcer/ Wound - Delayed primary closure site is intact without gapping, necrosis, purulence, erythema or streaking. No bogginess or fluctuance. Mild serosanguineous drainage noted to the plantar closure site only. Compartments remain soft adjacent to the surgical site Musculoskeletal: No Tenderness to Palpation of Joints or Extremities, Muscle Wasting Neurological: - - Altered sensation Psych/Mental Status: Normal Affect, Appropriate Laboratory Results 04/28/20 16:40: POC Glucose 145 H 04/28/20 20:15: POC Glucose 86 04/29/20 06:05: POC Glucose 103 04/29/20 10:45: POC Glucose 319 H Current Medications Acetaminophen (Acetaminophen 500 Mg Tablet) 1,000 mg PO Q6H PRN PRN PRN Reason: Pain Score 1-3 Last Admin: 04/27/20 20:47 Dose: 1,000 mg Documented by: Allopurinol (Allopurinol 100 Mg Tablet) 100 mg PO DAILY@0800 [facility] Last Admin: 04/29/20 08:53 Dose: 100 mg Documented by: Alprazolam (Alprazolam 0.25 Mg Tablet) 0.25 mg PO BID PRN PRN PRN Reason: ANXIETY Last Admin: 04/26/20 08:25 Dose: 0.25 mg Documented by: Amlodipine Besylate (Amlodipine 5 Mg Tablet) 5 mg PO DAILY@0800 [facility] Last Admin: 04/29/20 08:47 Dose: 5 mg Documented by: Aspirin (Aspirin E.C. 81 Mg Tablet) 81 mg PO DAILY@0800 [facility] Last Admin: 04/29/20 08:47 Dose: 81 mg Documented by: Bisacodyl (Bisacodyl 10 Mg Suppository) 10 mg RECTAL DAILY PRN PRN Reason: Constipation Calamine/Phenol (Menthol/Lanolin/Calamine/Znox 113 Gm Tube) 1 applic TOPICAL 1000,2200 [facility]; Protocol Last Admin: 04/29/20 10:55 Dose: 1 applicatio Documented by: Calcium Carbonate (Calcium Carbonate 500 Mg Tablet) [facility] Last Admin: 04/29/20 08:48 Dose: 500 mg Documented by: Carvedilol (Carvedilol 25 Mg Tablet) [facility] Last Admin: 04/29/20 08:47 Dose: 25 mg Documented by: Clopidogrel Bisulfate (Clopidogrel Bisulfate 75 Mg Tablet) 75 mg PO DAILY@0800 [facility] Last Admin: 04/29/20 08:48 Dose: 75 mg Documented by: Cyclobenzaprine HCl (Cyclobenzaprine Hcl 10 Mg Tablet) 5 mg PO TID PRN PRN PRN Reason: MUSCLE SPASM Last Admin: 04/22/20 16:11 Dose: 5 mg Documented by: Duloxetine HCl (Duloxetine Hcl 30 Mg Capsule) [facility] Last Admin: 04/28/20 20:11 Dose: 30 mg Documented by: Ergocalciferol (Ergocalciferol 50,000 Unit Capsule) 50,000 unit PO QWEEK [facility] Last Admin: 04/28/20 06:14 Dose: 50,000 unit Documented by: Ferrous Sulfate (Ferrous Sulfate 325 Mg Tablet) 325 mg PO 1200,1700 [facility] Last Admin: 04/29/20 11:51 Dose: 325 mg Documented by: Glucagon (Glucagon 1 Mg/Ml Syringe) 1 mg IM X1 PRN PRN Reason: HYPOGLYCEMIA Hydroxyzine Pamoate (Hydroxyzine [place] 25 Mg Capsule) 50 mg PO Q8H PRN PRN PRN Reason: Anxiety/allergies Last Admin: 04/29/20 09:03 Dose: 50 mg Documented by: Vancomycin IV Pharmacy to Dose (1 ea/ Sodium Chloride) 500 mls @ 250 mls/hr IV X1 PRN; Protocol PRN Reason: Rx to Dose Sodium Chloride () 250 mls @ 15 mls/hr IV .[id number] PRN PRN Reason: Saline Flush Last Infusion: 04/25/20 06:19 Dose: 0 mls/hr Documented by: Vancomycin HCl 750 mg/ Sodium (Chloride) 265 mls @ 250 mls/hr IV Q24H [facility] Last Infusion: 04/28/20 21:37 Dose: Infused Documented by: Insulin Glargine (Insulin Glargine 100 Units/Ml Pen) 20 units SC 0800,2000 [facility] Insulin Human Lispro (Insulin Lispro 100 Unit/Ml Insuln.Pen) 14 unit SC 0800,1700 [facility] Ipratropium [place] (Ipratropium [place] 0.06% Nasal [place]) 2 spray NASAL Q6H PRN PRN Reason: CONGESTION Last Admin: 04/22/20 08:03 Dose: 2 sprays Documented by: Isosorbide Mononitrate (Isosorbide Mononitrate 60 Mg Tablet) 60 mg PO QAM [facility] Last Admin: 04/29/20 10:58 Dose: 60 mg Documented by: Isosorbide Mononitrate (Isosorbide Mononitrate 60 Mg Tablet) 120 mg PO QHS [facility] Last Admin: 04/28/20 20:11 Dose: 120 mg Documented by: Lactobacillus Acidophilus (Lactobacillus Acidophilus) 1 tablet PO DAILY@0800 [facility] Last Admin: 04/29/20 08:46 Dose: 1 tablet Documented by: Levothyroxine Sodium (Levothyroxine 75 Mcg Tablet) 75 mcg PO QHS [facility] Last Admin: 04/28/20 20:12 Dose: 75 mcg Documented by: Lisinopril (Lisinopril 10 Mg Tablet) 10 mg PO DAILY@0800 [facility] Last Admin: 04/29/20 08:48 Dose: 10 mg Documented by: Loratadine (Loratadine 10 Mg Tablet) 10 mg PO DAILY@0800 [facility] Last Admin: 04/29/20 08:47 Dose: 10 mg Documented by: Magnesium Hydroxide (Magnesium Hydroxide 30 Ml Udc) 30 ml PO DAILY PRN PRN Reason: Constipation Melatonin (Melatonin 10 Mg Tablet) 5 mg PO 1700 [facility] Last Admin: 04/28/20 17:48 Dose: 5 mg Documented by: Morphine Sulfate (Morphine (Oral Solution) 10mg/0.5ml Syringe) 10 mg SL/PO BID PRN PRN PRN Reason: Pain Score 6-10 Last Admin: 04/28/20 20:03 Dose: 10 mg Documented by: Nitroglycerin (Nitroglycerin (Inpatient Use) 0.4 Mg Tab.Subl) 0.4 mg SUBLINGUAL Q5M PRN PRN Reason: CARDIAC/CHEST PAIN Nutritional Formula (Nutritional Supplement (Blue) Packet) [facility] Last Admin: 04/29/20 08:47 Dose: 1 packet Documented by: Pancrelipase (Creon 24,[address] Capsule) [facility] Last Admin: 04/29/20 08:47 Dose: 1 capsule Documented by: Pantoprazole Sodium (Pantoprazole Sodium 20 Mg Tablet) 20 mg PO DAILY@0800 [facility] Last Admin: 04/29/20 08:48 Dose: 20 mg Documented by: Polyethylene Glycol (Polyethylene Glycol 3350 17 Gm Packet) 17 gm PO DAILY@0800 [facility] Last Admin: 04/29/20 08:47 Dose: Not Given Documented by: Pravastatin Sodium (Pravastatin 40 Mg Tablet) [facility] Last Admin: 04/28/20 20:12 Dose: 40 mg Documented by: Quetiapine Fumarate (Quetiapine 100 Mg Tablet) [facility] Last Admin: 04/28/20 20:11 Dose: 300 mg Documented by: Senna/Docusate Sodium (Senna/Docusate Sodium 1 Tablet) [facility] Last Admin: 04/29/20 08:48 Dose: 1 tablet Documented by: Sodium Chloride (0.9% Saline Lock 10 Ml Syringe) 10 - 40 ml IV UD PRN PRN Reason: Closed End PICC Flush Last Admin: 04/29/20 06:18 Dose: 20 ml Documented by: Sodium Chloride (0.9 % Nacl (Sterile) Posiflush 10 Ml) 10 - 40 ml IV UD PRN PRN Reason: Port access or dressing change Sodium Hypochlorite (Dakin's [place] Half Strength (=0.25%)) 1 applic TOPICAL DAILY@1000 [facility]; Protocol Last Admin: 04/29/20 10:56 Dose: Not Given Documented by: Trazodone HCl (Trazodone 50 Mg Tablet) 50 mg PO QHS PRN PRN Reason: INSOMNIA Last Admin: 04/22/20 08:03 Dose: 50 mg Documented by: Medical Necessity - Tobacco Use Smoking Status: Never smoker Tobacco Use: Non-smoker Assessment/Plan All Active Problems (Last Reviewed 04/16/20 @ 15:[address] Judson Massey MD) Cellulitis of left lower limb (Acute) Infection of left foot (Acute) Debility (Acute) Nonhealing surgical wound (Acute) Ulcer of right foot with necrosis of bone (Resolved) Ulcer of left foot with fat layer exposed (Acute) Chest pain (Acute) -s/p I+D / debridement left foot on 04/15/2020 due to gas / abscess infection and now postoperative debridement/application of advanced wound healing product/delayed primary closure of left foot on 04/26/2020 -Uncontrolled diabetes with neuropathy -Non acute Charcot midfoot, left -Other comorbidities: coronary artery disease, hypertension, GERD, history of blood clots and history of blood transfusion, history of cerebrovascular accidents, hyperlipidemia, irritable bowel syndrome, history of iron deficiency anemia, obesity, osteoporosis, history of gastric bypass, recent abdominal surgery is noted with delayed healing Left foot healing well, clinically no evidence of infection, tissues viable. She is afebrile and her vital signs are stable. Labs done on 04/27/2020 were reviewed with white blood cell count of 7.0 and sedimentation rate of 35. An updated wet-to-dry betadine dressing was applied over the primary closure sites. To keep clean, dry, and intact. This will be changed biweekly at this time. I discussed the patient's recent surgical intervention she was reassured no signs of infection or devitalized tissue was identified. Prior cultures: Polyorganism noted to wound cultures, continue w/ antibiotics per ID/Dr. Webb. She continues on cefepime and vancomycin. PICC line in place with end date 04/29/2020. No weightbearing left foot, keep foot elevated. DVT Prophylaxis, Diabetes and other medical problems: per Dr. Rush. Podiatry will continue to follow closely. Please call if you have any questions. After discharge, I recommend she follows up with the foot and ankle center this upcoming week. Her proposed discharge date is 04/30/2020. Ivanna Magana DPM, [facility]
[2020-04-29 14:05] VITALS: BP 139/64; PULSE 70; RESP 18; TEMP 36.9; O2SAT 96
[2020-04-29 14:06] VITALS: PULSE 70; RESP 18; O2SAT 96
[2020-04-29 17:16] LABS: Bedside Glucose 249 mg/dL (70-110)
[2020-04-29] MEDS: MELATONIN 10 MG TABLET 5 MG PO (17:55)
[2020-04-29] MEDS: Insulin Lispro 100 UNIT/ML INSULN.PEN 14 UNIT SC (17:58)
[2020-04-29] MEDS: morphine (oral solution) 10MG/0.5ML Syringe 10 MG SL/PO (19:09)
[2020-04-29 20:55] LABS: Bedside Glucose 170 mg/dL (70-110)
[2020-04-29] MEDS: QUEtiapine 100 MG Tablet 300 MG PO (20:59)
[2020-04-29] MEDS: Pravastatin 40 MG Tablet PO (20:59)
[2020-04-29] MEDS: DULoxetine Hcl 30 MG Capsule PO (20:59)
[2020-04-29] MEDS: Levothyroxine 75 MCG Tablet PO (20:59)
[2020-04-29] MEDS: Isosorbide Mononitrate 60 MG Tablet 120 MG PO (21:00)
[2020-04-30 05:00] VITALS: BP 124/54; PULSE 72; RESP 14; TEMP 36.8; O2SAT 94
[2020-04-30 06:25] LABS: Bedside Glucose 118 mg/dL (70-110)
[2020-04-30] MEDS: Insulin Lispro 100 UNIT/ML INSULN.PEN 14 UNIT SC (08:34)
[2020-04-30] MEDS: Loratadine 10 MG Tablet PO (08:35)
[2020-04-30] MEDS: Aspirin E.C. 81 MG Tablet PO (08:35)
[2020-04-30] MEDS: Lisinopril 10 MG Tablet PO (08:35)
[2020-04-30] MEDS: Clopidogrel Bisulfate 75 MG Tablet PO (08:35)
[2020-04-30] MEDS: Allopurinol 100 MG Tablet PO (08:35)
[2020-04-30] MEDS: Carvedilol 25 MG Tablet PO (08:35)
[2020-04-30] MEDS: Creon 24,000 unit DR Capsule 1 CAP PO (08:36)
[2020-04-30] MEDS: Senna/Docusate Sodium 1 Tablet PO (08:36)
[2020-04-30] MEDS: Pantoprazole Sodium 20 MG Tablet PO (08:36)
[2020-04-30] MEDS: Calcium Carbonate 500 MG Tablet PO (08:36)
[2020-04-30] MEDS: amLODIPine 5 MG Tablet PO (08:37)
[2020-04-30] MEDS: hydrOXYzine PAM 25 MG Capsule 50 MG PO (08:43)
--- NOTE | 2020-04-30 10:12 | NURSING ---
Spoke with Dr. Magana asking about dressing change orders, she stated that she was in yesterday to change the patient's dressing and would see her in the office on Saturday to change it again.
[2020-04-30] MEDS: Menthol/Lanolin/Calamine/Znox 113 GM Tube 1 APPLIC TOPICAL (10:13)
[2020-04-30] MEDS: Isosorbide Mononitrate 60 MG Tablet PO (10:15)
[2020-04-30 10:20] VITALS: PULSE 74; RESP 18; O2SAT 96
[2020-04-30 11:11] LABS: Bedside Glucose 229 mg/dL (70-110)
[2020-04-30 13:40] VITALS: BP 129/58; PULSE 74; RESP 16; TEMP 36.4; O2SAT 96
== END 2020-04-30 11:45 | disposition home health service (06) | DRG 949 ==
PROVIDERS: Admitting Provider Family Medicine Geriatric Medicine; PCP Family Medicine; Visit Provider Family Medicine Geriatric Medicine
DX: Z48.817 Encounter for surgical aftercare following surgery on the skin and subcutaneous tissue (principal); L03.116 Cellulitis of left lower limb; F41.9 Anxiety disorder, unspecified; E03.9 Hypothyroidism, unspecified; F32.9 Major depressive disorder, single episode, unspecified; K21.9 Gastro-esophageal reflux disease without esophagitis; I10 Essential (primary) hypertension; I25.10 Atherosclerotic heart disease of native coronary artery without angina pectoris; D50.9 Iron deficiency anemia, unspecified; E55.9 Vitamin D deficiency, unspecified; E11.42 Type 2 diabetes mellitus with diabetic polyneuropathy; M10.9 Gout, unspecified; E11.610 Type 2 diabetes mellitus with diabetic neuropathic arthropathy; E78.5 Hyperlipidemia, unspecified; L97.522 Non-pressure chronic ulcer of other part of left foot with fat layer exposed; E11.621 Type 2 diabetes mellitus with foot ulcer; E66.9 Obesity, unspecified; Z95.1 Presence of aortocoronary bypass graft; E11.51 Type 2 diabetes mellitus with diabetic peripheral angiopathy without gangrene; K58.0 Irritable bowel syndrome with diarrhea; K86.89 Other specified diseases of pancreas; E11.65 Type 2 diabetes mellitus with hyperglycemia; L60.0 Ingrowing nail; Z98.84 Bariatric surgery status; Z86.718 Personal history of other venous thrombosis and embolism; M81.0 Age-related osteoporosis without current pathological fracture; B95.7 Other staphylococcus as the cause of diseases classified elsewhere; B95.4 Other streptococcus as the cause of diseases classified elsewhere; B96.5 Pseudomonas (aeruginosa) (mallei) (pseudomallei) as the cause of diseases classified elsewhere; B96.89 Other specified bacterial agents as the cause of diseases classified elsewhere
CPT/HCPCS: 36415; 80048; 80202; 82962; 85025; 85652; 87635; 97110; 97116; 97162; 97166; 97530; 97535; 97802; J7050; J7120; A4216; U0002

== ENCOUNTER 2020-04-26 11:09 | Day surgery (SDC) | payer MEDICARE, OTHER, SELFPAY ==
[2020-04-26] VITALS (7 sets, daily range): BP systolic 85–125; BP diastolic 36–55; PULSE 66–72; RESP 16; TEMP 36.6; O2SAT 90–95; BMI 30.9
[2020-04-26] MEDS: Lactated Ringers 1,000 ML 100 ML IV (11:39)
[2020-04-26] MEDS: Lidocaine 1% (30 ml sdv) 30 ML Vial (13:00)
[2020-04-26] MEDS: Bupivacaine Mpf 0.5% 30 ML VIAL (13:00)
--- NOTE | 2020-04-26 13:24 | PCM.OPRPT ---
Problem List 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: Acute Comment: Recurrent (2) Cellulitis of left lower limb Status: Resolved (3) Type 2 diabetes mellitus with diabetic polyneuropathy Status: Chronic Report of Operation Date of Procedure: 04/26/20 Pre-Operative Diagnosis: Ulcer with fat layer exposed plantar left foot. Ulcer with fat layer exposed dorsal lateral right foot Post-Operative Diagnosis: Ulcer with fat layer exposed plantar left foot. Ulcer with fat layer exposed dorsal lateral right foot Surgery/Procedure Performed:: Debridement of right foot ulcer with delayed primary closure. Application of advanced wound healing product, amnio fill Description of Surgical Findings:: Hemostasis: Well-padded pneumatic left high ankle tourniquet, 6 minutes Materials: 2-0 and 3-0 Prolene, amnio fill (250 mg) Complications: None Specimens: None The patient tolerated the procedure and anesthesia well. She was transported to the PACU vital signs stable and vascular status intact to the left lower extremity. No signs of infection or devitalized tissue was identified. She will be transferred back to the transitional care unit for continued antibiotics and therapy upon continued stability. Her infection signs have resolved compared to her initial admission onset. Postoperative orders were entered electronically. 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 Regulatory Lead: Karlos Connors PGY2 Type of Anesthesia:: Local - Preoperative: One-to-one mixture of 18 cc of 1% lidocaine plain and 0.5% Marcaine plain administered in typical left ankle block fashion, MAC Specimen's removed: none Estimated Blood Loss (mL): <150 mL Description of Procedure: Indications: This 74-year-old female with multiple comorbidities (diabetes with neuropathy, hypertension, hyperlipidemia, coronary artery disease, prior CVA, history of blood clot, history of anemia, remote left foot charcot collapse) has been recovering from a left foot advanced infection. She had an emergent I & D with widespread debridement performed on 04/15/2020. She has undergone serial Dakin wet-to-dry dressings and has demonstrated local and systemic resolution of pain and infection. She is on IV antibiotics under the management of infectious disease as well; cefepime and vancomycin. Her vascular status is grossly intact. She has stabilized and I recommend delayed primary closure to facilitate a more timely healing process. She has been residing in transitional care unit. The preoperative indications, benefits, risk, complications and anticipated healing time and management were discussed. She understands risk and complications may include but are not limited to the following: pain, swelling, scarring, need for further surgery, continued infection and delayed healing, loss of limb, function, life, blood clot, allergic reaction. This is medically necessary for limb and life salvage. This is the staged procedure that was previously discussed as a limb salvage attempt. She also understands she has entered a health care facility during covid 19 pandemic and there is an inherent risk. The benefits and risks were reviewed. She also understands she will be screened for covid 19 and all safety precautions to prevent viral spread are being taken at [facility] to lower the risk. The informed surgical consent and limb were signed. I answered all of her questions. Procedure in detail: The patient was taken to the operating room via cart and placed on the operating table in the supine position. Final verification of the patient, surgery, and limb designation was performed via the time out procedure. MAC anesthesia was initiated by the anesthesia team. I administered the preoperative local anesthetic as described to the left ankle. A well-padded pneumatic left high ankle tourniquet was placed. The left lower extremity was prepped and draped in the usual aseptic manner. Buckhorn exsanguination was performed the tourniquet was inflated at this time. Surgery began the following: Attention was first directed to the plantar ulcer of the left foot that measured approximately 7.6 by 6 cm x 1.3 cm (post debridement 7.7 x 6.1 x 1.3 cm) and the incision was J-shaped approximately 10% of this measured plantar aformentioned area. The dorsal lateral foot ulcer site measures 2.8 cm x 0.5 cm x 0.9 cm and post debridement 3 cm x 0.6 cm x 1 cm. Debridement with a 15 blade scalpel was performed to remove fibrous tissue, biofilm, slough, devitalized subcutaneous tissue. Saline rinse was performed to both sites. 250 of amnio fill, placental and umbilical cord derived advanced wound healing product was applied to the dorsal and plantar wounds. The tourniquet was deflated after 6 minutes and brisk capillary refill time was noted to all digits of the left foot and to all wound margins. The tissue was further mobilized and was reapproximated utilizing retention vertical mattress, horizontal mattress, simple, and allgower suture techniques to realign the skin edges in a slightly everted manner. This was performed utilizing no touch technique in a non tensile manner. No necrosis or infection was noted. Prior to closure it is noted prior drainage and debridement site was free of devitalized tissue and was bleeding in a healthy manner. There was no pulsatile bleeding noted and hemostasis was considered controlled. There was absolutely no odor, redness, or streaking. It is noted she is on Plavix. Hemostasis was successfully controlled. A postoperative dressing consisting of Betadine soaked gauze, dry gauze, abdominal pads, Kerlix, and Arjun wrap were applied. After procedure: The patient tolerated the procedure and anesthesia well. She was transported to the PACU with vital signs stable and vascular status intact to the left lower extremity. She will be transferred to the transitional care unit for continued antibiotics and medical management. Her infection signs have clinically and systemically resolved. She will complete the initial recommended antibiotic regimen per infectious disease. She was advised to maintain a strict nonweightbearing status to the left foot. She was advised to ice and elevate for pain and inflammation management. I will continue to follow her closely in house. She will also continue to work with physical therapy while in the transitional care unit. Medical management per Dr. Rush is appreciated. Her postoperative orders were entered electronically. Ivanna Maagna DPM, [facility] Grafts/Implants Used: amniofill (mimedx-250 mg) - Complications none - Admit VTE Documentation VTE Present on Admission: No VTE Mechan Device Prophylaxis: SCD's VTE Pharm Prophylaxis ordered?: Yes
== END 2020-04-26 15:02 | disposition home or self-care (01) ==
LOC: SDC 11:11 → AC 11:12
PROVIDERS: PCP Family Medicine; Referring Provider Podiatrist; Visit Provider Podiatrist
PROC: (CPT 11042; principal; 2020-04-26 11:45)
DX: E11.621 Type 2 diabetes mellitus with foot ulcer (principal); L97.522 Non-pressure chronic ulcer of other part of left foot with fat layer exposed; L97.512 Non-pressure chronic ulcer of other part of right foot with fat layer exposed; E11.42 Type 2 diabetes mellitus with diabetic polyneuropathy; E11.51 Type 2 diabetes mellitus with diabetic peripheral angiopathy without gangrene; M14.672 Charcot's joint, left ankle and foot; I25.10 Atherosclerotic heart disease of native coronary artery without angina pectoris; I10 Essential (primary) hypertension; K58.9 Irritable bowel syndrome, unspecified; E78.5 Hyperlipidemia, unspecified; E03.9 Hypothyroidism, unspecified; M10.9 Gout, unspecified; M81.0 Age-related osteoporosis without current pathological fracture; E55.9 Vitamin D deficiency, unspecified; G47.30 Sleep apnea, unspecified; K21.9 Gastro-esophageal reflux disease without esophagitis; F32.9 Major depressive disorder, single episode, unspecified; F41.9 Anxiety disorder, unspecified; E66.9 Obesity, unspecified; Z68.30 Body mass index [BMI] 30.0-30.9, adult; Z79.4 Long term (current) use of insulin; Z79.02 Long term (current) use of antithrombotics/antiplatelets; Z79.82 Long term (current) use of aspirin; Z79.899 Other long term (current) drug therapy; Z78.0 Asymptomatic menopausal state; Z86.2 Personal history of diseases of the blood and blood-forming organs and certain disorders involving the immune mechanism; Z86.73 Personal history of transient ischemic attack (TIA), and cerebral infarction without residual deficits; Z86.718 Personal history of other venous thrombosis and embolism; Z95.5 Presence of coronary angioplasty implant and graft; Z95.1 Presence of aortocoronary bypass graft
CPT/HCPCS: 00400; 11042; 11045 ×2; 17999; A4216

== ENCOUNTER → 2020-05-10 17:16 | Outpatient (CLI) | payer MEDICARE, OTHER, SELFPAY ==
--- NOTE | 2020-05-10 17:30 | RAD_ITS ---
BACK PAIN PT DONE SUPINE UNABLE TO STAND DUE TO RECENT FOOT SURGERY EXAMINATION/TECHNIQUE: XR Spine Lumbar 2 or 3 Views: 2 views COMPARISON: None FINDINGS: VERTEBRAE: Preserved vertebral body height. No fracture. No spondylolisthesis. Degenerative changes of the posterior elements. Preservation of the normal lumbar lordosis. Minimal levoscoliosis of the lumbar spine DISCS: Degenerative changes are noted. INCLUDED ABDOMEN: Included bowel gas pattern is non-obstructive. Atherosclerotic vascular disease. RAD/Lumbar Spine 2 or 3 Views IMPRESSION: Degenerative changes. No acute fracture or spondylolisthesis. at 0109 Reported and signed by: Belen Augustin DO Electronically Signed: Belen Augustin DO at 1:08 EST Tel , Service support ,
== END ==
PROVIDERS: PCP Family Medicine; Visit Provider Anesthesiology Pain Medicine
DX: M54.9 Dorsalgia, unspecified (principal)
CPT/HCPCS: 72100

== ENCOUNTER 2020-05-25 09:00 | Outpatient (RCR) | payer MEDICARE, OTHER, SELFPAY ==
[2020-04-26 00:36] VITALS: BP 150/50; PULSE 71; RESP 18; TEMP 36.7
[2020-04-26 11:18] VITALS: BMI 30.9
[2020-05-25 09:10] VITALS: BP 109/47; PULSE 69; BMI 30.9
[2020-05-25 11:14] VITALS: BP 110/50
--- NOTE | 2020-05-25 11:22 | PCM.WC.PN ---
(1) Decubitus ulcer of sacral region, stage 2 Status: Acute Code(s): L89.152 - Pressure ulcer of sacral region, stage 2 (2) Diabetes mellitus type 2 in obese Status: Chronic Code(s): E11.69 - Type 2 diabetes mellitus with other specified complication; E66.9 - Obesity, unspecified Type of Wound Date of Service: 05/25/20 Chief Complaint: Left foot History of Wound: This is 74-year-old female with diabetic neuropathy history of Charcot left foot with rocker-bottom deformity, coronary artery disease and other comorbidities has a recurrent ulcer. She denies fever, chill, nausea, vomiting. She completed her antibiotics. She kept her total contact cast intact last week however admits she walks around at home when she gets up at night without the protective total contact cast boot in place. She relates her life has rapidly declined in the past 2 years with her being unable to cook or care for herself. She saw a therapist physical a couple of years ago however a lot of the information is no longer pertinent because she is not the one cooking. She is amendable to follow-up again. She relates she also has trouble eating due to her prior gastric bypass she is concerned she is not absorbing all of her vitamins and been prescribed for her. She also drinks protein supplement shakes. From trying to offload her foot she is laying on her back and developing a pressure area on her coccyx area. Patient complains of severe pain it shearing that she has developed. Progress of Wound: Large ecchymotic and sheared open area on her sacral area from offloading her foot. Patient was requested to maybe lay on her sides and it would heal easier. - Physical Exam Vital Signs Temp Pulse Resp BP 98.0 F 69 18 110/50 L 04/26/20 00:36 05/25/20 09:10 04/26/20 00:36 05/25/20 11:14 General: Oriented x3, Cooperative, Well developed HEENT: Atraumatic, PERRLA Oral: Moist Mucosa Neck: Supple, No JVD Lungs: Clear to auscultation, Normal air movement Cardiovascular: Regular rate, Regular Rhythm Abdomen: Bowel Sounds Present, Soft, Non Tender, No Hepato-splenomegaly Extremities: No clubbing, No edema Skin: Ulcer/ Wound - Shearing decubitus ulcer on sacral area stage II open Wound Measurements and Assessment WC - Nurse 1 - General Ulcer Measurement Start: 05/25/20 09:10 Freq: Status: Active Protocol: Activity Type Activity Date Activity User E-Sign Co-Sign Detail Recorded Client Recorded Date Recorded By Document 05/25/20 09:10 MALIA [id number] 05/25/20 09:23 MALIA 05/25/20 09:10 Wound Center Nurse 1 [Ulcer Assessment] #6 Coccyx Cluster -Current Size (cm) - Length 2.8 -Current Size (cm) - Width 2.8 -Current Size (cm) - Depth 0.1 -Total Square Cm 7.84 -Exudate Amt Small -Exudate Type Serosanguineous -Wound Margin Distinct, Outline Attached -Granulation Amt Small (1-33%) -Granulation Quality Red -Necrosis Amt Small (1-33%) -Necrotic Tissue Type Adherent Slough -Texture (Shannon-wound Skin Appearance) Assessed, Scarring -Moisture (Shannon-wound Skin Appearance No Abnormality, ) Assessed -Color (Shannon-wound Skin Appearance) No Abnormality, Assessed -Temperature (Shannon-wound Skin No Abnormality Appearance) (Pt Warm) -Tenderness on Palpation (Shannon-wound No Skin Appearance) -Ulcer Cleansing Rinsed/ Irrigated with Saline -Foul Odor after Cleansing No -Anesthetic Used 4% Lidocaine Solution #7 L Plantar Cluster -Combined with other wound Yes -Combined with (Name of Wound-Exactly #5 L plantar as it is documented) cluster -Current Size (cm) - Length 4.5 -Current Size (cm) - Width 0.5 -Current Size (cm) - Depth 0.3 -Total Square Cm 2.25 -Exudate Amt Small -Exudate Type Serosanguineous -Wound Margin Distinct, Outline Attached -Granulation Amt Small (1-33%) -Granulation Quality Red -Necrosis Amt Small (1-33%) -Necrotic Tissue Type Adherent Slough -Texture (Shannon-wound Skin Appearance) Assessed, Scarring -Moisture (Shannon-wound Skin Appearance No Abnormality, ) Assessed -Color (Shannon-wound Skin Appearance) No Abnormality, Assessed -Temperature (Shannon-wound Skin No Abnormality Appearance) (Pt Warm) -Tenderness on Palpation (Shannon-wound No Skin Appearance) -Ulcer Cleansing Rinsed/ Irrigated with Saline -Foul Odor after Cleansing No -Anesthetic Used 4% Lidocaine Solution WC - Nurse 2 - General Ulcer CM Notes Start: 05/25/20 09:10 Freq: Status: Active Protocol: Activity Type Activity Date Activity User E-Sign Co-Sign Detail Recorded Client Recorded Date Recorded By Document 05/25/20 09:34 JF [id number] 05/25/20 09:36 Document 05/25/20 09:57 MW [id number] 05/25/20 10:00 MW 05/25/20 05/25/20 09:34 09:57 Wound Center Nurse 2 [Procedure/Treatment] #6 Coccyx Cluster -Time 09:58 -Correct Patient Yes -Correct Side, Site, Position Yes -Correct Procedure Yes -Procedure Performed No -Post Debridement (cm) - Length 3.0 -Post Debridement (cm) - Width 4.0 -Post Debridement (cm) - Depth 0.1 -Total Square (Post) (cm) 12.00 -Tunneling No -Undermining/Tunneling No -Circular Undermining No -Wound/Ulcer Outcome Not Healed -Ulcer Cleansing Rinsed/ Irrigated with Saline -Foul Odor after Cleansing No -Bioengineered Tissue No -Bleeding Controlled with NA -Offloading No -Correct Patient No -Correct Side, Site, Position No -Correct Procedure No -Procedure Performed No -Wound/Ulcer Outcome Not Healed [See Physician Procedure note for Specifics] Pain Scale: 0-10 Numeric [Pain] -Is Patient Pain Free? Yes AMINAH - Nurse 3 - General Ulcer D/C NN Start: 05/25/20 09:10 Freq: Status: Active Protocol: Activity Type Activity Date Activity User E-Sign Co-Sign Detail Recorded Client Recorded Date Recorded By Document 05/25/20 11:14 RB [id number] 05/25/20 11:15 RB 05/25/20 11:14 Wound Care Nurse 3 [Wound Dressing] #6 Coccyx Cluster -Ulcer Cleansing Rinsed/ Irrigated with Saline -Other Dressing xeroform, abd , tape [Post Procedure Tolerated] -Treatment Response Procedure Tolerated Well Vital Signs [Blood Pressure] -Blood Pressure (90/60-120/80 mm Hg) 110/50 L -Blood Pressure Mean (mm Hg) 70 -Source Monitor -Position Supine -Blood Pressure Location Left Arm Pain Scale: 0-10 Numeric [Pain] -Is Patient Pain Free? Yes Teaching: Wound Center [Wound Center Education] (Items with an * have Printed Materials Available- Please identify what is given to patient under the Teaching materials given to patient and caregiver Section. Dressing Your Wound -Person Taught Patient -Teaching Method Discussion, Demonstration -Response to teaching Verbalize understanding WC - Visit Discharge [Visit Discharge Information] -Discharge Condition Stable -Ambulatory Status Walker -Transportation Private Auto -Medication Reconcilliation completed No & provided to patient/care provider -Clinical Summary of Care Provided Yes Musculoskeletal: No Tenderness to Palpation of Joints or Extremities Lymphatic: No Cervical, Supraclavicular, or Inguinal Adenopathy Neurological: Cranial nerves II-XII grossly intact, Neuro grossly intact Psych/Mental Status: Normal Affect, Appropriate Debridement Note Post-Debridement Measurements/Treatment WC - Nurse 2 - General Ulcer CM Notes Start: 05/25/20 09:10 Freq: Status: Active Protocol: Activity Type Activity Date Activity User E-Sign Co-Sign Detail Recorded Client Recorded Date Recorded By Document 05/25/20 09:34 [id number] 05/25/20 09:36 JF Document 05/25/20 09:57 MW [id number] 05/25/20 10:00 MW 05/25/20 05/25/20 09:34 09:57 Wound Center Nurse 2 #6 Coccyx Cluster -Time 09:58 -Correct Patient Yes -Correct Side, Site, Position Yes -Correct Procedure Yes -Procedure Performed No -Post Debridement (cm) - Length 3.0 -Post Debridement (cm) - Width 4.0 -Post Debridement (cm) - Depth 0.1 -Total Square (Post) (cm) 12.00 -Tunneling No -Undermining/Tunneling No -Circular Undermining No -Wound/Ulcer Outcome Not Healed -Ulcer Cleansing Rinsed/ Irrigated with Saline -Foul Odor after Cleansing No -Bioengineered Tissue No -Bleeding Controlled with NA -Offloading No #7 L Plantar Cluster -Correct Patient No -Correct Side, Site, Position No -Correct Procedure No -Procedure Performed No -Wound/Ulcer Outcome Not Healed Pain Scale: 0-10 Numeric Is Patient Pain Free? Yes - Nurse 3 - General Ulcer D/C NN Start: 05/25/20 09:10 Freq: Status: Active Protocol: Activity Type Activity Date Activity User E-Sign Co-Sign Detail Recorded Client Recorded Date Recorded By Document 05/25/20 11:14 RB [id number] 05/25/20 11:15 RB 05/25/20 11:14 Wound Care Nurse 3 -Ulcer Cleansing Rinsed/ Irrigated with Saline -Other Dressing xeroform, abd , tape Treatment Response Procedure Tolerated Well Vital Signs Blood Pressure (90/60-120/80 mm Hg) 110/50 L Blood Pressure Mean (mm Hg) 70 Source Monitor Position Supine Blood Pressure Location Left Arm Pain Scale: 0-10 Numeric Is Patient Pain Free? Yes Teaching: Wound Center Dressing Your Wound -Person Taught Patient -Teaching Method Discussion, Demonstration -Response to teaching Verbalize understanding WC - Visit Discharge Discharge Condition Stable Ambulatory Status Walker Transportation Private Auto Medication Reconcilliation completed & No provided to patient/care provider Clinical Summary of Care Provided Yes Wound debrided: Sacral area shearing Type of Debridement: Selective debridement Anesthesia Used: 5% Lidocaine Gel Depth: in the subcutaneous layer Percentage of wound debrided: 100 Instrument Used: - - Gauze Severity: Limited To Skin Breakdown Amount of bleeding with debridement: Mild Bleeding Controlled with: Pressure Patient tolerated procedure well Assessment/Plan Assessment: left foot plantar ulcer, britt grade 1, no infection. Midfoot Charcot deformity, left. Diabetes with neuropathy. Malnutrition suspected. Cubitus ulcer stage II sacral area. Other comorbidities Plan: Wash the area of the sacrum with antibacterial soap. Apply Xeroform dressing to area cover with gauze and peripad daily. follow-up in 1 week. Offload by laying side to side
--- NOTE | 2020-05-25 12:35 | PCM.WC.PN ---
(1) Charcot's joint of left foot Status: Chronic Code(s): M14.672 - Charcot's joint, left ankle and foot (2) Type 2 diabetes mellitus with diabetic polyneuropathy Status: Chronic Code(s): E11.42 - Type 2 diabetes mellitus with diabetic polyneuropathy (3) 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 Code(s): L97.522 - Non-pressure chronic ulcer of other part of left foot with fat layer exposed Comment: Recurrent Type of Wound Date of Service: 05/25/20 Chief Complaint: Left foot History of Wound: This is 74-year-old female with diabetic neuropathy history of Charcot left foot with rocker-bottom deformity, coronary artery disease and other comorbidities has a recurrent ulcer. She denies fever, chill, nausea, vomiting. She had a recent incision and drainage for gas infection of the left foot with serial debridements and wound care and delayed closure with application of advanced wound healing product. She has been doing well and is stable. She was actually seen [facility] for concern of worsening status however it looked like it was demonstrating improvement without signs of infection. The ulcer was debrided yesterday and she presents to clinic today for application of total contact cast. Progress of Wound: Improving left foot - Physical Exam Vital Signs Temp Pulse Resp BP 98.0 F 69 18 110/50 L 04/26/20 00:36 05/25/20 09:10 04/26/20 00:36 05/25/20 11:14 General: Alert, Oriented x3, Cooperative, No apparent distress Extremities: No cyanosis, Capillary Refill Less than 3 Seconds, No Calf Tenderness, Diminished Peripheral Pulses, Edema Skin: Ulcer/ Wound - No purulence, erythema, string, odor, infection. The ulcer appears granular. There are Steri-Strips to the distal aspect that were applied yesterday. The adjacent skin is hairless and atrophic Wound Measurements and Assessment WC - Nurse 1 - General Ulcer Measurement Start: 05/25/20 09:10 Freq: Status: Active Protocol: Activity Type Activity Date Activity User E-Sign Co-Sign Detail Recorded Client Recorded Date Recorded By Document 05/25/20 09:10 MALIA [id number] 05/25/20 09:23 KR 05/25/20 09:10 Wound Center Nurse 1 [Ulcer Assessment] #6 Coccyx Cluster -Current Size (cm) - Length 2.8 -Current Size (cm) - Width 2.8 -Current Size (cm) - Depth 0.1 -Total Square Cm 7.84 -Exudate Amt Small -Exudate Type Serosanguineous -Wound Margin Distinct, Outline Attached -Granulation Amt Small (1-33%) -Granulation Quality Red -Necrosis Amt Small (1-33%) -Necrotic Tissue Type Adherent Slough -Texture (Shannon-wound Skin Appearance) Assessed, Scarring -Moisture (Shannon-wound Skin Appearance No Abnormality, ) Assessed -Color (Shannon-wound Skin Appearance) No Abnormality, Assessed -Temperature (Shannon-wound Skin No Abnormality Appearance) (Pt Warm) -Tenderness on Palpation (Shannon-wound No Skin Appearance) -Ulcer Cleansing Rinsed/ Irrigated with Saline -Foul Odor after Cleansing No -Anesthetic Used 4% Lidocaine Solution #7 L Plantar Cluster -Combined with other wound Yes -Combined with (Name of Wound-Exactly #5 L plantar as it is documented) cluster -Current Size (cm) - Length 4.5 -Current Size (cm) - Width 0.5 -Current Size (cm) - Depth 0.3 -Total Square Cm 2.25 -Exudate Amt Small -Exudate Type Serosanguineous -Wound Margin Distinct, Outline Attached -Granulation Amt Small (1-33%) -Granulation Quality Red -Necrosis Amt Small (1-33%) -Necrotic Tissue Type Adherent Slough -Texture (Shannon-wound Skin Appearance) Assessed, Scarring -Moisture (Shannon-wound Skin Appearance No Abnormality, ) Assessed -Color (Shannon-wound Skin Appearance) No Abnormality, Assessed -Temperature (Shannon-wound Skin No Abnormality Appearance) (Pt Warm) -Tenderness on Palpation (Shannon-wound No Skin Appearance) -Ulcer Cleansing Rinsed/ Irrigated with Saline -Foul Odor after Cleansing No -Anesthetic Used 4% Lidocaine Solution WC - Nurse 2 - General Ulcer CM Notes Start: 05/25/20 09:10 Freq: Status: Active Protocol: Activity Type Activity Date Activity User E-Sign Co-Sign Detail Recorded Client Recorded Date Recorded By Document 05/25/20 09:34 JF [id number] 05/25/20 09:36 JF Document 05/25/20 09:57 MW [id number] 05/25/20 10:00 MW 05/25/20 05/25/20 09:34 09:57 Wound Center Nurse 2 [Procedure/Treatment] #6 Coccyx Cluster -Time 09:58 -Correct Patient Yes -Correct Side, Site, Position Yes -Correct Procedure Yes -Procedure Performed No -Post Debridement (cm) - Length 3.0 -Post Debridement (cm) - Width 4.0 -Post Debridement (cm) - Depth 0.1 -Total Square (Post) (cm) 12.00 -Tunneling No -Undermining/Tunneling No -Circular Undermining No -Wound/Ulcer Outcome Not Healed -Ulcer Cleansing Rinsed/ Irrigated with Saline -Foul Odor after Cleansing No -Bioengineered Tissue No -Bleeding Controlled with NA -Offloading No -Correct Patient No -Correct Side, Site, Position No -Correct Procedure No -Procedure Performed No -Wound/Ulcer Outcome Not Healed [See Physician Procedure note for Specifics] Pain Scale: 0-10 Numeric [Pain] -Is Patient Pain Free? Yes WC - Nurse 3 - General Ulcer D/C NN Start: 05/25/20 09:10 Freq: Status: Active Protocol: Activity Type Activity Date Activity User E-Sign Co-Sign Detail Recorded Client Recorded Date Recorded By Document 05/25/20 11:14 [id number] 05/25/20 11:15 RB 05/25/20 11:14 Wound Care Nurse 3 [Wound Dressing] #6 Coccyx Cluster -Ulcer Cleansing Rinsed/ Irrigated with Saline -Other Dressing xeroform, abd , tape [Post Procedure Tolerated] -Treatment Response Procedure Tolerated Well Vital Signs [Blood Pressure] -Blood Pressure (90/60-120/80) 110/50 L -Blood Pressure Mean (mm Hg) 70 -Source Monitor -Position Supine -Blood Pressure Location Left Arm Pain Scale: 0-10 Numeric [Pain] -Is Patient Pain Free? Yes Teaching: Wound Center [Wound Center Education] (Items with an * have Printed Materials Available- Please identify what is given to patient under the Teaching materials given to patient and caregiver Section. Dressing Your Wound -Person Taught Patient -Teaching Method Discussion, Demonstration -Response to teaching Verbalize understanding WC - Visit Discharge [Visit Discharge Information] -Discharge Condition Stable -Ambulatory Status Walker -Transportation Private Auto -Medication Reconcilliation completed No & provided to patient/care provider -Clinical Summary of Care Provided Yes Musculoskeletal: No Tenderness to Palpation of Joints or Extremities, Muscle Wasting, - - Rocker-bottom Charcot foot stable and nonacute Neurological: - - Lack of normal epicritic sensation light touch is consistent with neuropathy status Psych/Mental Status: Normal Affect, Appropriate Debridement Note Post-Debridement Measurements/Treatment WC - Nurse 2 - General Ulcer CM Notes Start: 05/25/20 09:10 Freq: Status: Active Protocol: Activity Type Activity Date Activity User E-Sign Co-Sign Detail Recorded Client Recorded Date Recorded By Document 05/25/20 09:34 JF [id number] 05/25/20 09:36 JF Document 05/25/20 09:57 MW [id number] 05/25/20 10:00 MW 05/25/20 05/25/20 09:34 09:57 Wound Center Nurse 2 #6 Coccyx Cluster -Time 09:58 -Correct Patient Yes -Correct Side, Site, Position Yes -Correct Procedure Yes -Procedure Performed No -Post Debridement (cm) - Length 3.0 -Post Debridement (cm) - Width 4.0 -Post Debridement (cm) - Depth 0.1 -Total Square (Post) (cm) 12.00 -Tunneling No -Undermining/Tunneling No -Circular Undermining No -Wound/Ulcer Outcome Not Healed -Ulcer Cleansing Rinsed/ Irrigated with Saline -Foul Odor after Cleansing No -Bioengineered Tissue No -Bleeding Controlled with NA -Offloading No #7 L Plantar Cluster -Correct Patient No -Correct Side, Site, Position No -Correct Procedure No -Procedure Performed No -Wound/Ulcer Outcome Not Healed Pain Scale: 0-10 Numeric Is Patient Pain Free? Yes WC - Nurse 3 - General Ulcer D/C NN Start: 05/25/20 09:10 Freq: Status: Active Protocol: Activity Type Activity Date Activity User E-Sign Co-Sign Detail Recorded Client Recorded Date Recorded By Document 05/25/20 11:14 RB [id number] 05/25/20 11:15 RB 05/25/20 11:14 Wound Care Nurse 3 -Ulcer Cleansing Rinsed/ Irrigated with Saline -Other Dressing xeroform, abd , tape Treatment Response Procedure Tolerated Well Vital Signs Blood Pressure (90/60-120/80) 110/50 L Blood Pressure Mean (mm Hg) 70 Source Monitor Position Supine Blood Pressure Location Left Arm Pain Scale: 0-10 Numeric Is Patient Pain Free? Yes Teaching: Wound Center Dressing Your Wound -Person Taught Patient -Teaching Method Discussion, Demonstration -Response to teaching Verbalize understanding WC - Visit Discharge Discharge Condition Stable Ambulatory Status Walker Transportation Private Auto Medication Reconcilliation completed & No provided to patient/care provider Clinical Summary of Care Provided Yes Wound debrided: plantar foot Laterality: Left Wound Grade/Stage: grade 2 Tissue Removed: fibrous, devitalized subcutaneous, biofilm, slough No debridement was completed today Assessment/Plan Active Problems (Last Reviewed 05/08/20 @ 17:[address] 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 Midfoot Charcot deformity, left. Diabetes with neuropathy. Malnutrition suspected. other comorbidities Plan: I reviewed and discussed her case. Excisional subcutaneous debridement was performed as [facility]. It appears her local signs of cellulitis have resolved and I do not recommend antibiotic refill. An additional total contact cast was applied after verbal consent according standard protocol in a rectus neutral well-padded position. She tolerated this well. The purpose indication and anticipated healing time and management reviewed. Lotus was applied to the wound prior to application of the total contact cast. To continue proper glycemic control. A nutrition referral was recommended and provided previously for evaluation and management of her diabetes taking into consideration her prior gastric bypass restrictions and also her lifestyle changes. She no longer cooks for herself and has been taking well. She ordered Blue and plans to resume nutritional supplementation. To follow-up with the wound healing center in 1 week or call sooner if she has any questions or concerns or development of local or systemic infection. I answered all of her questions. She has significant delays in healing and ulcers to multiple other sites including her abdomen and now rectum. She is seeing other wound care center providers for her nonpodiatric wound sites.
== END 2020-05-26 23:59 ==
LOC: WC 09:00
PROVIDERS: PCP Family Medicine; Visit Provider Podiatrist
DX: E11.621 Type 2 diabetes mellitus with foot ulcer (principal); L89.152 Pressure ulcer of sacral region, stage 2; E66.9 Obesity, unspecified; E11.40 Type 2 diabetes mellitus with diabetic neuropathy, unspecified; I25.10 Atherosclerotic heart disease of native coronary artery without angina pectoris; Z98.84 Bariatric surgery status; L97.522 Non-pressure chronic ulcer of other part of left foot with fat layer exposed; E11.610 Type 2 diabetes mellitus with diabetic neuropathic arthropathy
CPT/HCPCS: 29445; 99213; G0463

== ENCOUNTER → 2020-06-09 11:55 | Outpatient (CLI) | payer MEDICARE, OTHER, SELFPAY ==
[2020-06-01 13:12] VITALS: BMI 30.9
[2020-06-08 13:36] VITALS: BMI 30.9
[2020-06-09 14:15] LABS: ALB/GLOB Ratio 0.9 RATIO (0.9-2.4); AST(SGOT) 24 U/L (15-37); Alanine Aminotransfer ALT/SGPT 26 U/L (13-56); Albumin, Serum 3.3 g/dL (3.2-5.0); Alkaline Phosphatase 81 U/L (45-117); Anion Gap 7 (5-15); BUN 95 mg/dL (7-18); BUN/Creat Ratio 40.3 RATIO (10-20); Calcium,Total 8.2 mg/dL (8.5-10.1); Chloride 98 mmol/L (98-107); Creatinine, Serum 2.36 mg/dL (0.55-1.02); EST Glomerular Filtration Rate 21 mL/min (>60); Est Glom Filt Rate - Afr Amer 26 mL/min (>60); Globulin 3.7 g/dL (2.2-4.2); Glucose 163 mg/dL (74-106); Potassium 5.3 mmol/L (3.5-5.1); Sodium Level 126 mmol/L (136-145)
== END ==
PROVIDERS: PCP Family Medicine; Referring Provider Podiatrist; Visit Provider Podiatrist
DX: L97.522 Non-pressure chronic ulcer of other part of left foot with fat layer exposed (principal)
CPT/HCPCS: 80053

== ENCOUNTER 2020-06-22 10:00 | Outpatient (RCR) | payer MEDICARE, OTHER, SELFPAY ==
[2020-05-27 00:31] VITALS: BP 110/50; PULSE 69; RESP 18; TEMP 36.7
[2020-05-31 13:46] VITALS: BP 141/63; PULSE 73; RESP 16; TEMP 36.1; BMI 30.9
[2020-06-01 13:12] VITALS: BP 168/51; PULSE 71; RESP 18; TEMP 35.8; BMI 30.9
--- NOTE | 2020-06-01 13:19 | WC ---
pt superior plantar wound sterirstripos intact
--- NOTE | 2020-06-01 15:14 | PN.PCM_ITS ---
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 Code(s): L97.522 - Non-pressure chronic ulcer of other part of left foot with fat layer exposed Comment: Recurrent (2) Charcot's joint of left foot Status: Chronic Code(s): M14.672 - Charcot's joint, left ankle and foot (3) Type 2 diabetes mellitus with diabetic polyneuropathy Status: Chronic Code(s): E11.42 - Type 2 diabetes mellitus with diabetic polyneuropathy Type of Wound Date of Service: 06/01/20 Chief Complaint: Left foot History of Wound: This is 74-year-old female with diabetic neuropathy history of Charcot left foot with rocker-bottom deformity, coronary artery disease and other comorbidities has a recurrent ulcer. She denies fever, chill, nausea, vomiting. She had a recent incision and drainage for gas infection of the left foot with serial debridements and wound care and delayed closure with application of advanced wound healing product in the operating room. She has been doing well and is stable. She is amendable to proceed with a total contact cast today. Progress of Wound: Improving left foot - Physical Exam Vital Signs Temp Pulse Resp BP 96.5 F L 71 18 168/51 H 06/01/20 13:12 06/01/20 13:12 06/01/20 13:12 06/01/20 13:12 General: Alert, Oriented x3, Cooperative, No apparent distress HEENT: Atraumatic Extremities: No cyanosis, Capillary Refill Less than 3 Seconds, No Calf Tenderness, Diminished Peripheral Pulses, Edema - Decreased, - - Right transmetatarsal amputation. Stable Charcot rocker-bottom foot left Skin: Ulcer/ Wound - No purulence, erythema, streaking, odor. No necrosis. No probe to joint or prominent osseous Charcot exostosis left foot, - - Adjacent skin is hairless and atrophic. There is some coaptation of the distal I&D site with intermittent skin discontinuity. Steri-Strips were reapplied Wound Measurements and Assessment WC - Nurse 1 - General Ulcer Measurement Start: 05/31/20 13:45 Freq: Status: Active Protocol: Activity Type Activity Date Activity User E-Sign Co-Sign Detail Recorded Client Recorded Date Recorded By Document 05/31/20 13:46 MW [id number] 05/31/20 13:54 MW Document 06/01/20 13:12 [facility] [id number] 06/01/20 13:20 BMF 05/31/20 06/01/20 13:46 13:12 Wound Center Nurse 1 [Ulcer Assessment] #6 Coccyx Cluster -Combined with other wound No -Current Size (cm) - Length 1.7 -Current Size (cm) - Width 1.0 -Current Size (cm) - Depth 0.1 -Total Square Cm 1.70 -Photo Taken No -Epithelialization None Present -Tunneling No -Undermining/Tunneling No -Circular Undermining No -Exudate Amt Medium -Exudate Type Serosanguineous -Wound Margin Flat & Intact -Granulation Amt Small (1-33%) -Granulation Quality [place] -Slough/Fibrin Yes -Necrosis Amt Medium (34-66%) -Necrotic Tissue Type Adherent Slough -Structure Exposed N/A -Texture (Shannon-wound Skin Appearance) Assessed, Scarring -Moisture (Shannon-wound Skin Appearance No Abnormality, ) Assessed -Color (Shannon-wound Skin Appearance) No Abnormality, Assessed -Temperature (Shannon-wound Skin No Abnormality Appearance) (Pt Warm) -Tenderness on Palpation (Shannon-wound Yes Skin Appearance) -Ulcer Cleansing Rinsed/ Irrigated with Saline -Foul Odor after Cleansing No -Anesthetic Used 5% Lidocaine Gel #7 L Plantar Cluster -Combined with other wound No -Current Size (cm) - Length 1.8 -Current Size (cm) - Width 2 -Current Size (cm) - Depth 0.3 -Total Square Cm 3.6 -Tunneling No -Undermining/Tunneling No -Circular Undermining No -Exudate Amt Medium -Exudate Type Serosanguineous -Wound Margin Thickened & Rolled Under -Granulation Amt Medium (34-66%) -Granulation Quality [place] -Slough/Fibrin Yes -Necrosis Amt Medium (34-66%) -Necrotic Tissue Type Adherent Slough -Structure Exposed N/A -Texture (Shannon-wound Skin Appearance) Assessed, Scarring -Moisture (Shannon-wound Skin Appearance Maceration ) -Color (Shannon-wound Skin Appearance) Assessed -Temperature (Shannon-wound Skin No Abnormality Appearance) (Pt Warm) -Tenderness on Palpation (Shannon-wound No Skin Appearance) -Ulcer Cleansing Wound Cleanser -Foul Odor after Cleansing No -Anesthetic Used 4% Lidocaine Solution [Edema Assessment] -Lower Limb Edema Present No 06/01/20 13:19 Wound Center by Aisha Mendoza pt superior plantar wound sterirstripos intact Initialized on 06/01/20 13:19 - END OF NOTE WC - Nurse 2 - General Ulcer CM Notes Start: 05/31/20 13:45 Freq: Status: Active Protocol: Activity Type Activity Date Activity User E-Sign Co-Sign Detail Recorded Client Recorded Date Recorded By Document 05/31/20 15:51 PL [id number] 05/31/20 15:53 PL 05/31/20 15:51 Wound Center Nurse 2 [Procedure/Treatment] #6 Coccyx Cluster -Time 14:28 -Correct Patient Yes -Correct Side, Site, Position Yes -Correct Procedure Yes -Procedure Performed Yes -Type of Procedure Debridement -Clinical Debridement Subcutaneous -Tissue Removed Subcutaneous -Post Debridement (cm) - Length 1.7 -Post Debridement (cm) - Width 1.0 -Post Debridement (cm) - Depth 0.1 -Total Square (Post) (cm) 1.70 -Area of Debridement (cm) - Length 1.7 -Area of Debridement (cm) - Width 1.0 -Total Square (Area) (cm) 1.70 -Tunneling No -Undermining/Tunneling No -Circular Undermining No -Wound/Ulcer Outcome Not Healed -Ulcer Cleansing Rinsed/ Irrigated with Saline -Foul Odor after Cleansing No -Bioengineered Tissue No -Debridement - Subq, 1st 20sq cm Yes [See Physician Procedure note for Specifics] Pain Scale: 0-10 Numeric [Pain] -Is Patient Pain Free? Yes - Nurse 3 - General Ulcer D/C NN Start: 05/31/20 13:45 Freq: Status: Active Protocol: Activity Type Activity Date Activity User E-Sign Co-Sign Detail Recorded Client Recorded Date Recorded By Document 05/31/20 15:01 DL [id number] 05/31/20 15:02 DL Document 06/01/20 14:03 KR [id number] 06/01/20 14:04 KR 05/31/20 06/01/20 15:01 14:03 Wound Care Nurse 3 [Wound Dressing] #6 Coccyx Cluster -Ulcer Cleansing Rinsed/ Irrigated with Saline -Foul Odor after Cleansing No -Primary Dressing Applied Mepilex Border -Mepilex Border 2 #7 L Plantar Cluster -Ulcer Cleansing Rinsed/ Irrigated with Saline -Foul Odor after Cleansing No -Primary Dressing Applied Promogran Lotus Matter -Other Dressing TCC -Promogran Lotus Matter 1 [Post Procedure Tolerated] -Treatment Response Procedure Tolerated Well Pain Scale: 0-10 Numeric [Pain] -Is Patient Pain Free? Yes Yes WC - Visit Discharge [Visit Discharge Information] -Discharge Condition Stable Stable -Ambulatory Status Ambulatory Ambulatory -Transportation Private Auto Private Auto -Notes: Mepilex border to abd also. Pt has appt with Dr Massey for abd ulcer. Musculoskeletal: Muscle Wasting, - - Compartments soft Neurological: - - Lack of epicritic sensation light touch is consistent with neuropathy status Psych/Mental Status: Normal Affect, Appropriate Debridement Note Post-Debridement Measurements/Treatment WC - Nurse 2 - General Ulcer CM Notes Start: 05/31/20 13:45 Freq: Status: Active Protocol: Activity Type Activity Date Activity User E-Sign Co-Sign Detail Recorded Client Recorded Date Recorded By Document 05/31/20 15:51 PL [id number] 05/31/20 15:53 PL 05/31/20 15:51 Wound Center Nurse 2 #6 Coccyx Cluster -Time 14:28 -Correct Patient Yes -Correct Side, Site, Position Yes -Correct Procedure Yes -Procedure Performed Yes -Type of Procedure Debridement -Clinical Debridement Subcutaneous -Tissue Removed Subcutaneous -Post Debridement (cm) - Length 1.7 -Post Debridement (cm) - Width 1.0 -Post Debridement (cm) - Depth 0.1 -Total Square (Post) (cm) 1.70 -Area of Debridement (cm) - Length 1.7 -Area of Debridement (cm) - Width 1.0 -Total Square (Area) (cm) 1.70 -Tunneling No -Undermining/Tunneling No -Circular Undermining No -Wound/Ulcer Outcome Not Healed -Ulcer Cleansing Rinsed/ Irrigated with Saline -Foul Odor after Cleansing No -Bioengineered Tissue No -Debridement - Subq, 1st 20sq cm Yes Pain Scale: 0-10 Numeric Is Patient Pain Free? Yes - Nurse 3 - General Ulcer D/C NN Start: 05/31/20 13:45 Freq: Status: Active Protocol: Activity Type Activity Date Activity User E-Sign Co-Sign Detail Recorded Client Recorded Date Recorded By Document 05/31/20 15:01 DL [id number] 05/31/20 15:02 DL Document 06/01/20 14:03 KR [id number] 06/01/20 14:04 KR 05/31/20 06/01/20 15:01 14:03 Wound Care Nurse 3 #6 Coccyx Cluster -Ulcer Cleansing Rinsed/ Irrigated with Saline -Foul Odor after Cleansing No -Primary Dressing Applied Mepilex Border -Mepilex Border 2 #7 L Plantar Cluster -Ulcer Cleansing Rinsed/ Irrigated with Saline -Foul Odor after Cleansing No -Primary Dressing Applied Promogran Lotus Matter -Other Dressing TCC -Promogran Lotus Matter 1 Treatment Response Procedure Tolerated Well Pain Scale: 0-10 Numeric Is Patient Pain Free? Yes Yes WC - Visit Discharge Discharge Condition Stable Stable Ambulatory Status Ambulatory Ambulatory Transportation Private Auto Private Auto Notes: Mepilex border to abd also. Pt has appt with Dr Massey for abd ulcer. Wound debrided: plantar midfoot Laterality: Left Wound Grade/Stage: grade 1 Type of Debridement: Excisional debridement Anesthesia Used: 5% Lidocaine Gel Depth: in the subcutaneous layer Percentage of wound debrided: 100 Instrument Used: #15 blade Tissue Removed: fibrous, devitalized subcutaneous, biofilm, slough Severity: Fat Layer Exposed Amount of bleeding with debridement: Mild Bleeding Controlled with: Pressure Patient tolerated procedure well Assessment/Plan Active Problems (Last Reviewed 05/08/20 @ 17:[address] 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 Midfoot Charcot deformity, left. Diabetes with neuropathy. Malnutrition suspected. other comorbidities Plan: I reviewed and discussed her case. Excisional subcutaneous debridement was performed as noted in the clinical nursing panel. It appears her local signs of cellulitis have resolved and I do not recommend antibiotic refill. Lotus was applied. An additional total contact cast was applied after verbal consent according standard protocol in a rectus neutral well-padded position. She tolerated this well. The purpose indication and anticipated healing time and management reviewed. To continue proper glycemic control. A nutrition referral was recommended and provided previously for evaluation and management of her diabetes taking into consideration her prior gastric bypass restrictions and also her lifestyle changes. She continues alejandro supplementation. To follow-up with the wound healing center in 1 week or call sooner if she has any questions or concerns or development of local or systemic infection. I answered all of her questions. She has significant delays in healing and ulcers to multiple other sites including her abdomen and now rectum. She is seeing other wound care center providers for her nonpodiatric wound sites. She is scheduled to have a sleep apnea study this Saturday as recommended by Dr. Leone.
[2020-06-07 13:51] VITALS: BP 159/52; PULSE 74; RESP 18; TEMP 35.5; BMI 30.9
[2020-06-08 13:36] VITALS: BP 147/69; PULSE 74; RESP 20; TEMP 36.1; BMI 30.9
--- NOTE | 2020-06-08 14:05 | PN.PCM_ITS ---
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 Code(s): L97.522 - Non-pressure chronic ulcer of other part of left foot with fat layer exposed Comment: Recurrent (2) Charcot's joint of left foot Status: Chronic Code(s): M14.672 - Charcot's joint, left ankle and foot (3) Type 2 diabetes mellitus with diabetic polyneuropathy Status: Chronic Code(s): E11.42 - Type 2 diabetes mellitus with diabetic polyneuropathy Type of Wound Date of Service: 06/08/20 Chief Complaint: Left foot History of Wound: This is 74-year-old female with diabetic neuropathy history of Charcot left foot with rocker-bottom deformity, coronary artery disease and other comorbidities has a recurrent ulcer. She denies fever, chill, nausea, vomiting. She had a recent incision and drainage for gas infection of the left foot with serial debridements and wound care and delayed closure with application of advanced wound healing product in the operating room. She has been doing well and is stable. She is amendable to proceed with a total contact cast today. She is undergoing work-up for sleep apnea at this time and has been working closely with her primary care physician for medical management, other wound care center providers for buttock ulcer, and plastic surgery for abdomen ulcer that recently healed. Progress of Wound: Improving left foot - Physical Exam Vital Signs Temp Pulse Resp BP 97 F L 74 20 H 147/69 H 06/08/20 13:36 06/08/20 13:36 06/08/20 13:36 06/08/20 13:36 General: Alert, Oriented x3, Cooperative, No apparent distress HEENT: Atraumatic Extremities: No cyanosis, Capillary Refill Less than 3 Seconds, No Calf Tenderness, Diminished Peripheral Pulses, Edema, - - Stable nonacute rocker-bot jose c foot consistent with prior Charcot deformity Skin: Ulcer/ Wound - No purulence, erythema, streaking, odor, infection. The adjacent skin is hairless and atrophic. Wound Measurements and Assessment WC - Nurse 1 - General Ulcer Measurement Start: 05/31/20 13:45 Freq: Status: Active Protocol: Activity Type Activity Date Activity User E-Sign Co-Sign Detail Recorded Client Recorded Date Recorded By Document 06/07/20 13:51 [email or web address] [id number] 06/07/20 14:02 JF Document 06/08/20 13:36 DL [id number] 06/08/20 13:42 DL 06/07/20 06/08/20 13:51 13:36 Wound Center Nurse 1 [Ulcer Assessment] #6 Coccyx Cluster -Combined with other wound No -Current Size (cm) - Length 2.3 -Current Size (cm) - Width 0.6 -Current Size (cm) - Depth 0.1 -Total Square Cm 1.38 -Photo Taken No -Epithelialization Small 1-33% -Tunneling No -Undermining/Tunneling No -Circular Undermining No -Exudate Amt Small -Exudate Type Serosanguineous -Wound Margin Flat & Intact -Granulation Amt None Present (0 %) -Slough/Fibrin Yes -Necrosis Amt Large (67-100%) -Necrotic Tissue Type Adherent Slough -Structure Exposed N/A -Texture (Shannon-wound Skin Appearance) Assessed -Moisture (Shannon-wound Skin Appearance Assessed ) -Color (Shannon-wound Skin Appearance) Assessed -Temperature (Shannon-wound Skin No Abnormality Appearance) (Pt Warm) -Tenderness on Palpation (Shannon-wound No Skin Appearance) -Ulcer Cleansing Rinsed/ Irrigated with Saline -Foul Odor after Cleansing No -Anesthetic Used 4% Lidocaine Solution #7 L Plantar Cluster -Current Size (cm) - Length 3.8 -Current Size (cm) - Width 0.8 -Current Size (cm) - Depth 0.2 -Total Square Cm 3.04 -Photo Taken No -Exudate Amt Small -Exudate Type Serosanguineous -Wound Margin Thickened -Granulation Amt Medium (34-66%) -Granulation Quality Pale,[place] -Necrosis Amt Medium (34-66%) -Necrotic Tissue Type Adherent Slough -Structure Exposed N/A -Texture (Shannon-wound Skin Appearance) Scarring -Moisture (Shannon-wound Skin Appearance Maceration ) -Color (Shannon-wound Skin Appearance) No Abnormality -Temperature (Shannon-wound Skin No Abnormality Appearance) (Pt Warm) -Tenderness on Palpation (Shannon-wound No Skin Appearance) -Ulcer Cleansing Wound Cleanser -Foul Odor after Cleansing No -Anesthetic Used 4% Lidocaine Solution [Edema Assessment] -Lower Limb Edema Present NA WC - Nurse 2 - General Ulcer CM Notes Start: 05/31/20 13:45 Freq: Status: Active Protocol: Activity Type Activity Date Activity User E-Sign Co-Sign Detail Recorded Client Recorded Date Recorded By Document 06/07/20 14:21 MW [id number] 06/07/20 14:26 MW Document 06/08/20 13:49 JF [id number] 06/08/20 13:55 JF 06/07/20 06/08/20 14:21 13:49 Wound Center Nurse 2 [Procedure/Treatment] #6 Coccyx Cluster -Time 14:24 -Correct Patient Yes -Correct Side, Site, Position Yes -Correct Procedure Yes -Procedure Performed No -Tunneling No -Undermining/Tunneling No -Circular Undermining No -Ulcer Cleansing Not Cleansed -Foul Odor after Cleansing No -Bioengineered Tissue No -Bleeding Controlled with NA -Offloading No #7 L Plantar Cluster -Time 13:51 -Correct Patient Yes -Correct Side, Site, Position Yes -Correct Procedure Yes -Procedure Performed Yes -Type of Procedure Debridement -Clinical Debridement Subcutaneous -Tissue Removed Subcutaneous -Post Debridement (cm) - Length 3.8 -Post Debridement (cm) - Width 1 -Post Debridement (cm) - Depth 0.3 -Total Square (Post) (cm) 3.8 -Area of Debridement (cm) - Length 3.8 -Area of Debridement (cm) - Width 1 -Total Square (Area) (cm) 3.8 -Tunneling No -Undermining/Tunneling No -Circular Undermining No -Ulcer Cleansing Rinsed/ Irrigated with Saline -Foul Odor after Cleansing No -Bioengineered Tissue No -Bleeding Controlled with Pressure -Offloading Yes -Type of Offloading Total Contact Cast (TCC) - Left ($) -Treatment Response Procedure Tolerated Well -Debridement - Subq, 1st 20sq cm Yes [See Physician Procedure note for Specifics] Pain Scale: 0-10 Numeric [Pain] -Is Patient Pain Free? Yes Musculoskeletal: No Tenderness to Palpation of Joints or Extremities, Muscle Wasting Neurological: - - Lack of normal epicritic sensation consistent with neuropathy status Psych/Mental Status: Normal Affect, Appropriate Debridement Note Post-Debridement Measurements/Treatment WC - Nurse 2 - General Ulcer CM Notes Start: 05/31/20 13:45 Freq: Status: Active Protocol: Activity Type Activity Date Activity User E-Sign Co-Sign Detail Recorded Client Recorded Date Recorded By Document 05/31/20 15:51 PL [id number] 05/31/20 15:53 PL Document 06/01/20 16:20 PL [id number] 06/01/20 16:21 PL Document 06/07/20 14:21 MW [id number] 06/07/20 14:26 MW Document 06/08/20 13:49 JF [id number] 06/08/20 13:55 JF 05/31/20 06/01/20 06/07/20 15:51 16:20 14:21 Wound Center Nurse 2 #6 Coccyx Cluster -Time 14:28 14:24 -Correct Patient Yes Yes -Correct Side, Site, Position Yes Yes -Correct Procedure Yes Yes -Procedure Performed Yes No -Type of Procedure Debridement -Clinical Debridement Subcutaneous -Tissue Removed Subcutaneous -Post Debridement (cm) - Length 1.7 -Post Debridement (cm) - Width 1.0 -Post Debridement (cm) - Depth 0.1 -Total Square (Post) (cm) 1.70 -Area of Debridement (cm) - Length 1.7 -Area of Debridement (cm) - Width 1.0 -Total Square (Area) (cm) 1.70 -Tunneling No No -Undermining/Tunneling No No -Circular Undermining No No -Wound/Ulcer Outcome Not Healed -Ulcer Cleansing Rinsed/ Not Cleansed Irrigated with Saline -Foul Odor after Cleansing No No -Bioengineered Tissue No No -Bleeding Controlled with NA -Offloading No -Debridement - Subq, 1st 20sq cm Yes #7 L Plantar Cluster -Time 13:37 -Correct Patient Yes -Correct Side, Site, Position Yes -Correct Procedure Yes -Procedure Performed Yes -Type of Procedure Debridement -Clinical Debridement Subcutaneous -Tissue Removed Subcutaneous -Post Debridement (cm) - Length 1.8 -Post Debridement (cm) - Width 2 -Post Debridement (cm) - Depth 0.3 -Total Square (Post) (cm) 3.6 -Area of Debridement (cm) - Length 1.8 -Area of Debridement (cm) - Width 2 -Total Square (Area) (cm) 3.6 -Tunneling No -Undermining/Tunneling No -Circular Undermining No -Wound/Ulcer Outcome Not Healed -Ulcer Cleansing Rinsed/ Irrigated with Saline -Foul Odor after Cleansing No -Bioengineered Tissue No -Bleeding Controlled with -Offloading -Type of Offloading -Treatment Response -Debridement - Subq, 1st 20sq cm Yes Pain Scale: 0-10 Numeric Is Patient Pain Free? Yes Yes 06/08/20 13:49 Wound Center Nurse 2 #6 Coccyx Cluster -Time -Correct Patient -Correct Side, Site, Position -Correct Procedure -Procedure Performed -Type of Procedure -Clinical Debridement -Tissue Removed -Post Debridement (cm) - Length -Post Debridement (cm) - Width -Post Debridement (cm) - Depth -Total Square (Post) (cm) -Area of Debridement (cm) - Length -Area of Debridement (cm) - Width -Total Square (Area) (cm) -Tunneling -Undermining/Tunneling -Circular Undermining -Wound/Ulcer Outcome -Ulcer Cleansing -Foul Odor after Cleansing -Bioengineered Tissue -Bleeding Controlled with -Offloading -Debridement - Subq, 1st 20sq cm #7 L Plantar Cluster -Time 13:51 -Correct Patient Yes -Correct Side, Site, Position Yes -Correct Procedure Yes -Procedure Performed Yes -Type of Procedure Debridement -Clinical Debridement Subcutaneous -Tissue Removed Subcutaneous -Post Debridement (cm) - Length 3.8 -Post Debridement (cm) - Width 1 -Post Debridement (cm) - Depth 0.3 -Total Square (Post) (cm) 3.8 -Area of Debridement (cm) - Length 3.8 -Area of Debridement (cm) - Width 1 -Total Square (Area) (cm) 3.8 -Tunneling No -Undermining/Tunneling No -Circular Undermining No -Wound/Ulcer Outcome -Ulcer Cleansing Rinsed/ Irrigated with Saline -Foul Odor after Cleansing No -Bioengineered Tissue No -Bleeding Controlled with Pressure -Offloading Yes -Type of Offloading Total Contact Cast (TCC) - Left ($) -Treatment Response Procedure Tolerated Well -Debridement - Subq, 1st 20sq cm Yes Pain Scale: 0-10 Numeric Is Patient Pain Free? Yes WC - Nurse 3 - General Ulcer D/C NN Start: 05/31/20 13:45 Freq: Status: Active Protocol: Activity Type Activity Date Activity User E-Sign Co-Sign Detail Recorded Client Recorded Date Recorded By Document 05/31/20 15:01 DL [id number] 05/31/20 15:02 DL Document 06/01/20 14:03 KR [id number] 06/01/20 14:04 KR 05/31/20 06/01/20 15:01 14:03 Wound Care Nurse 3 #6 Coccyx Cluster -Ulcer Cleansing Rinsed/ Irrigated with Saline -Foul Odor after Cleansing No -Primary Dressing Applied Mepilex Border -Mepilex Border 2 #7 L Plantar Cluster -Ulcer Cleansing Rinsed/ Irrigated with Saline -Foul Odor after Cleansing No -Primary Dressing Applied Promogran Lotus Matter -Other Dressing TCC -Promogran Lotus Matter 1 Treatment Response Procedure Tolerated Well Pain Scale: 0-10 Numeric Is Patient Pain Free? Yes Yes WC - Visit Discharge Discharge Condition Stable Stable Ambulatory Status Ambulatory Ambulatory Transportation Private Auto Private Auto Notes: Mepilex border to abd also. Pt has appt with Dr Massey for abd ulcer. Wound debrided: plantar foot Laterality: Left Wound Grade/Stage: grade 1 Type of Debridement: Excisional debridement Anesthesia Used: 5% Lidocaine Gel Depth: in the subcutaneous layer Percentage of wound debrided: 100 Instrument Used: #15 blade Tissue Removed: fibrous, devitalized subcutaneous, biofilm, slough Severity: Fat Layer Exposed Amount of bleeding with debridement: Mild Bleeding Controlled with: Pressure Patient tolerated procedure well Assessment/Plan Active Problems (Last Reviewed 05/08/20 @ 17:[address] 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 Midfoot Charcot deformity, left. Diabetes with neuropathy. Malnutrition suspected. other comorbidities Plan: I reviewed and discussed her case. Excisional subcutaneous debridement was performed as noted in the clinical nursing panel. It appears her local signs of cellulitis have resolved and I do not recommend antibiotic refill. Lotus was applied. An additional total contact cast was applied after verbal consent according standard protocol in a rectus neutral well-padded position. She tolerated this well. The purpose indication and anticipated healing time and management reviewed. Updated lab work was ordered for follow-up of her nonhealing wound and prior infection status. To continue proper glycemic control. A nutrition referral was recommended and provided previously for evaluation and management of her diabetes taking into consideration her prior gastric bypass restrictions and also her lifestyle changes. She continues alejandro supplementation. To follow-up with the wound healing center in 1 week or call sooner if she has any questions or concerns or development of local or systemic infection. I answered all of her questions. She has significant delays in healing and ulcers to multiple other sites including her abdomen and now rectum. She is seeing other wound care center providers for her nonpodiatric wound sites.
[2020-06-08 17:01] LABS: Absolute Lymphocyte Count 2.47 X10^3/uL (0.83-4.51); Absolute Neutrophil Count 4.6 X10^3/uL (2.0-7.7); Basophil# 0.03 X10^3/uL; Basophil% 0.4 % (0-1); Eosinophil# 0.07 X10^3/uL; Eosinophils% 0.9 % (0-5); Hemoglobin 12.8 g/dL (12.0-15.0); Lymphocyte # 2.47 X10^3/ul (4.0); Lymphocyte % 31.8 % (19-41); Mean Corpuscular Hgb 26.9 pg (27.0-32.0); Mean Corpuscular Volume 84.2 fL (81-99); Mean Platelet Vol. 9.6 fl (6.2-12.0); Monocyte# 0.61 X10^3/uL; Monocyte% 7.9 % (0-10); NRBC Flagged by Analyzer 0 % (0-5); Neutrophil # 4.56 X10^3/uL (2.7-7.7); Neutrophil % 58.7 % (47-70); Platelet Count 209 K/mm3 (150-450); RBC Distribution Width SD 58.3 fl (35.1-43.9); Red Blood Count 4.75 M/mm3 (4.2-5.4); White Blood Count 7.8 K/mm3 (4.4-11.0)
[2020-06-08 17:30] LABS: Erythrocyte Sedimentation Rate 20 mm/hr (0-30)
[2020-06-08 18:15] LABS: CRP < 2.90 mg/L (0.0-3.0)
--- NOTE | 2020-06-10 09:47 | PN.PCM_ITS ---
(1) Decubitus ulcer of sacral region, stage 2 Status: Acute Code(s): L89.152 - Pressure ulcer of sacral region, stage 2 Type of Wound Date of Service: 06/07/20 Chief Complaint: Left foot History of Wound: This is 74-year-old female with diabetic neuropathy history of Charcot left foot with rocker-bottom deformity, coronary artery disease and other comorbidities has a recurrent ulcer. She denies fever, chill, nausea, vomiting. She had a recent incision and drainage for gas infection of the left foot with serial debridements and wound care and delayed closure with application of advanced wound healing product in the operating room. She has been doing well and is stable. She is amendable to proceed with a total contact cast today. She is undergoing work-up for sleep apnea at this time and has been working closely with her primary care physician for medical management, other wound care center providers for buttock ulcer, and plastic surgery for abdomen ulcer that recently healed. Progress of Wound: Improving left foot. Lisa is here today to recheck the wound on the R buttocks and the proximal end of the anal cleft. She has not received her dressing supplies yet and has been using vaseline gauze instead. She denies F/C/S. She tells me that she saw Dr. Pedro and he is not concerned about all the [employer]VATOR [employer]PERATOR depressants she is taking to help her sleep and she must work on establishing a good sleep pattern at night and should not have CPAP until she is sleeping well? - Physical Exam Vital Signs Temp Pulse Resp BP 97 F L 74 20 H 147/69 H 06/08/20 13:36 06/08/20 13:36 06/08/20 13:36 06/08/20 13:36 Wound Measurements and Assessment WC - Nurse 1 - General Ulcer Measurement Start: 05/31/20 13:45 Freq: Status: Active Protocol: Activity Type Activity Date Activity User E-Sign Co-Sign Detail Recorded Client Recorded Date Recorded By Document 06/07/20 13:51 JF [id number] 06/07/20 14:02 JF Document 06/08/20 13:36 DL [id number] 06/08/20 13:42 DL 06/07/20 06/08/20 13:51 13:36 Wound Center Nurse 1 [Ulcer Assessment] #6 Coccyx Cluster -Combined with other wound No -Current Size (cm) - Length 2.3 -Current Size (cm) - Width 0.6 -Current Size (cm) - Depth 0.1 -Total Square Cm 1.38 -Photo Taken No -Epithelialization Small 1-33% -Tunneling No -Undermining/Tunneling No -Circular Undermining No -Exudate Amt Small -Exudate Type Serosanguineous -Wound Margin Flat & Intact -Granulation Amt None Present (0 %) -Slough/Fibrin Yes -Necrosis Amt Large (67-100%) -Necrotic Tissue Type Adherent Slough -Structure Exposed N/A -Texture (Shannon-wound Skin Appearance) Assessed -Moisture (Shannon-wound Skin Appearance Assessed ) -Color (Shannon-wound Skin Appearance) Assessed -Temperature (Shannon-wound Skin No Abnormality Appearance) (Pt Warm) -Tenderness on Palpation (Shannon-wound No Skin Appearance) -Ulcer Cleansing Rinsed/ Irrigated with Saline -Foul Odor after Cleansing No -Anesthetic Used 4% Lidocaine Solution #7 L Plantar Cluster -Current Size (cm) - Length 3.8 -Current Size (cm) - Width 0.8 -Current Size (cm) - Depth 0.2 -Total Square Cm 3.04 -Photo Taken No -Exudate Amt Small -Exudate Type Serosanguineous -Wound Margin Thickened -Granulation Amt Medium (34-66%) -Granulation Quality Pale,[place] -Necrosis Amt Medium (34-66%) -Necrotic Tissue Type Adherent Slough -Structure Exposed N/A -Texture (Shannon-wound Skin Appearance) Scarring -Moisture (Shannon-wound Skin Appearance Maceration ) -Color (Shannon-wound Skin Appearance) No Abnormality -Temperature (Shannon-wound Skin No Abnormality Appearance) (Pt Warm) -Tenderness on Palpation (Shannon-wound No Skin Appearance) -Ulcer Cleansing Wound Cleanser -Foul Odor after Cleansing No -Anesthetic Used 4% Lidocaine Solution [Edema Assessment] -Lower Limb Edema Present NA WC - Nurse 2 - General Ulcer CM Notes Start: 05/31/20 13:45 Freq: Status: Active Protocol: Activity Type Activity Date Activity User E-Sign Co-Sign Detail Recorded Client Recorded Date Recorded By Document 06/07/20 14:21 MW [id number] 06/07/20 14:26 MW Document 06/08/20 13:49 JF [id number] 01/13/21 13:55 JF 06/07/20 06/08/20 14:21 13:49 Wound Center Nurse 2 [Procedure/Treatment] #6 Coccyx Cluster -Time 14:24 -Correct Patient Yes -Correct Side, Site, Position Yes -Correct Procedure Yes -Procedure Performed No -Tunneling No -Undermining/Tunneling No -Circular Undermining No -Ulcer Cleansing Not Cleansed -Foul Odor after Cleansing No -Bioengineered Tissue No -Bleeding Controlled with NA -Offloading No #7 L Plantar Cluster -Time 13:51 -Correct Patient Yes -Correct Side, Site, Position Yes -Correct Procedure Yes -Procedure Performed Yes -Type of Procedure Debridement -Clinical Debridement Subcutaneous -Tissue Removed Subcutaneous -Post Debridement (cm) - Length 3.8 -Post Debridement (cm) - Width 1 -Post Debridement (cm) - Depth 0.3 -Total Square (Post) (cm) 3.8 -Area of Debridement (cm) - Length 3.8 -Area of Debridement (cm) - Width 1 -Total Square (Area) (cm) 3.8 -Tunneling No -Undermining/Tunneling No -Circular Undermining No -Ulcer Cleansing Rinsed/ Irrigated with Saline -Foul Odor after Cleansing No -Bioengineered Tissue No -Bleeding Controlled with Pressure -Offloading Yes -Type of Offloading Total Contact Cast (TCC) - Left ($) -Treatment Response Procedure Tolerated Well -Debridement - Subq, 1st 20sq cm Yes [See Physician Procedure note for Specifics] Pain Scale: 0-10 Numeric [Pain] -Is Patient Pain Free? Yes The sacral ulcers are not healed. They are both 100% slough. she has not been using the appropriate dressing because she has not received her dressing supplies. She has been using vaseline gauze which is contributing to maceration. there is no erythema and no odor. There is no purulent DC. Debridement Note Post-Debridement Measurements/Treatment WC - Nurse 2 - General Ulcer CM Notes Start: 05/31/20 13:45 Freq: Status: Active Protocol: Activity Type Activity Date Activity User E-Sign Co-Sign Detail Recorded Client Recorded Date Recorded By Document 05/31/20 15:51 PL [id number] 05/31/20 15:53 PL Document 06/01/20 16:20 PL [id number] 06/01/20 16:21 PL Document 06/07/20 14:21 MW [id number] 06/07/20 14:26 MW Document 06/08/20 13:49 JF [id number] 06/08/20 13:55 JF 05/31/20 06/01/20 06/07/20 15:51 16:20 14:21 Wound Center Nurse 2 #6 Coccyx Cluster -Time 14:28 14:24 -Correct Patient Yes Yes -Correct Side, Site, Position Yes Yes -Correct Procedure Yes Yes -Procedure Performed Yes No -Type of Procedure Debridement -Clinical Debridement Subcutaneous -Tissue Removed Subcutaneous -Post Debridement (cm) - Length 1.7 -Post Debridement (cm) - Width 1.0 -Post Debridement (cm) - Depth 0.1 -Total Square (Post) (cm) 1.70 -Area of Debridement (cm) - Length 1.7 -Area of Debridement (cm) - Width 1.0 -Total Square (Area) (cm) 1.70 -Tunneling No No -Undermining/Tunneling No No -Circular Undermining No No -Wound/Ulcer Outcome Not Healed -Ulcer Cleansing Rinsed/ Not Cleansed Irrigated with Saline -Foul Odor after Cleansing No No -Bioengineered Tissue No No -Bleeding Controlled with NA -Offloading No -Debridement - Subq, 1st 20sq cm Yes #7 L Plantar Cluster -Time 13:37 -Correct Patient Yes -Correct Side, Site, Position Yes -Correct Procedure Yes -Procedure Performed Yes -Type of Procedure Debridement -Clinical Debridement Subcutaneous -Tissue Removed Subcutaneous -Post Debridement (cm) - Length 1.8 -Post Debridement (cm) - Width 2 -Post Debridement (cm) - Depth 0.3 -Total Square (Post) (cm) 3.6 -Area of Debridement (cm) - Length 1.8 -Area of Debridement (cm) - Width 2 -Total Square (Area) (cm) 3.6 -Tunneling No -Undermining/Tunneling No -Circular Undermining No -Wound/Ulcer Outcome Not Healed -Ulcer Cleansing Rinsed/ Irrigated with Saline -Foul Odor after Cleansing No -Bioengineered Tissue No -Bleeding Controlled with -Offloading -Type of Offloading -Treatment Response -Debridement - Subq, 1st 20sq cm Yes Pain Scale: 0-10 Numeric Is Patient Pain Free? Yes Yes 06/08/20 13:49 Wound Center Nurse 2 #6 Coccyx Cluster -Time -Correct Patient -Correct Side, Site, Position -Correct Procedure -Procedure Performed -Type of Procedure -Clinical Debridement -Tissue Removed -Post Debridement (cm) - Length -Post Debridement (cm) - Width -Post Debridement (cm) - Depth -Total Square (Post) (cm) -Area of Debridement (cm) - Length -Area of Debridement (cm) - Width -Total Square (Area) (cm) -Tunneling -Undermining/Tunneling -Circular Undermining -Wound/Ulcer Outcome -Ulcer Cleansing -Foul Odor after Cleansing -Bioengineered Tissue -Bleeding Controlled with -Offloading -Debridement - Subq, 1st 20sq cm #7 L Plantar Cluster -Time 13:51 -Correct Patient Yes -Correct Side, Site, Position Yes -Correct Procedure Yes -Procedure Performed Yes -Type of Procedure Debridement -Clinical Debridement Subcutaneous -Tissue Removed Subcutaneous -Post Debridement (cm) - Length 3.8 -Post Debridement (cm) - Width 1 -Post Debridement (cm) - Depth 0.3 -Total Square (Post) (cm) 3.8 -Area of Debridement (cm) - Length 3.8 -Area of Debridement (cm) - Width 1 -Total Square (Area) (cm) 3.8 -Tunneling No -Undermining/Tunneling No -Circular Undermining No -Wound/Ulcer Outcome -Ulcer Cleansing Rinsed/ Irrigated with Saline -Foul Odor after Cleansing No -Bioengineered Tissue No -Bleeding Controlled with Pressure -Offloading Yes -Type of Offloading Total Contact Cast (TCC) - Left ($) -Treatment Response Procedure Tolerated Well -Debridement - Subq, 1st 20sq cm Yes Pain Scale: 0-10 Numeric Is Patient Pain Free? Yes WC - Nurse 3 - General Ulcer D/C NN Start: 05/31/20 13:45 Freq: Status: Active Protocol: Activity Type Activity Date Activity User E-Sign Co-Sign Detail Recorded Client Recorded Date Recorded By Document 05/31/20 15:01 DL [id number] 05/31/20 15:02 DL Document 06/01/20 14:03 KR [id number] 06/01/20 14:04 KR 05/31/20 06/01/20 15:01 14:03 Wound Care Nurse 3 #6 Coccyx Cluster -Ulcer Cleansing Rinsed/ Irrigated with Saline -Foul Odor after Cleansing No -Primary Dressing Applied Mepilex Border -Mepilex Border 2 #7 L Plantar Cluster -Ulcer Cleansing Rinsed/ Irrigated with Saline -Foul Odor after Cleansing No -Primary Dressing Applied Promogran Lotus Matter -Other Dressing TCC -Promogran Lotus Matter 1 Treatment Response Procedure Tolerated Well Pain Scale: 0-10 Numeric Is Patient Pain Free? Yes Yes WC - Visit Discharge Discharge Condition Stable Stable Ambulatory Status Ambulatory Ambulatory Transportation Private Auto Private Auto Notes: Mepilex border to abd also. Pt has appt with Dr Massey for abd ulcer. No debridement was completed today Assessment/Plan Active Problems (Last Reviewed 06/10/20 @ 21:[address] 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 Midfoot Charcot deformity, left. Diabetes with neuropathy. Malnutrition suspected. other comorbidities. non-healing decubitus ulcers of the sacrum/coccyx Plan: I reviewed and discussed her case. Excisional subcutaneous debridement was performed as noted in the clinical nursing panel. It appears her local signs of cellulitis have resolved and I do not recommend antibiotic refill. Lotus was applied. An additional total contact cast was applied after verbal consent according standard protocol in a rectus neutral well-padded position. She tolerated this well. The purpose indication and anticipated healing time and management reviewed. Updated lab work was ordered for follow-up of her nonhealing wound and prior infection status. To continue proper glycemic control. A nutrition referral was recommended and provided previously for evaluation and management of her diabetes taking into consideration her prior gastric bypass restrictions and also her lifestyle changes. She continues alejandro supplementation. To follow-up with the wound healing center in 1 week or call sooner if she has any questions or concerns or development of local or systemic infection. I answered all of her questions. She has significant delays in healing and ulcers to multiple other sites including her abdomen and now rectum. She is seeing other wound care center providers for her nonpodiatric wound sites. Dr. Leone. Dressing supplies were ordered today by nursing. She will return to the [facility] in 2 weeks (after the correct dressing is being applied) for a recheck. Will defer treatment of all other medical comorbidities to. dr. Ariza and Dr. Con Johnson. Office Visits / Consults: [id number] OV L2 Est
[2020-06-15 14:45] VITALS: BP 124/57; PULSE 68; RESP 18; TEMP 36.1; BMI 30.9
[2020-06-15 15:08] VITALS: BP 124/57
--- NOTE | 2020-06-15 15:34 | PCM.WC.PN ---
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 Code(s): L97.522 - Non-pressure chronic ulcer of other part of left foot with fat layer exposed Comment: Recurrent (2) Charcot's joint of left foot Status: Chronic Code(s): M14.672 - Charcot's joint, left ankle and foot (3) Type 2 diabetes mellitus with diabetic polyneuropathy Status: Chronic Code(s): E11.42 - Type 2 diabetes mellitus with diabetic polyneuropathy Type of Wound Date of Service: 06/15/20 Chief Complaint: Left foot History of Wound: This is 74-year-old female with diabetic neuropathy history of Charcot left foot with rocker-bottom deformity, coronary artery disease and other comorbidities has a recurrent ulcer. She denies fever, chill, nausea, vomiting. She had a recent incision and drainage for gas infection of the left foot with serial debridements and wound care and delayed closure with application of advanced wound healing product in the operating room. She has been doing well and is stable. She is amendable to proceed with a total contact cast again today. She has other ulcers at this time also. She would like to review her labs that were obtained last week. Progress of Wound: Improving left foot. - Physical Exam Vital Signs Temp Pulse Resp BP 97 F L 68 18 124/57 H 06/15/20 14:45 06/15/20 14:45 06/15/20 14:45 06/15/20 15:08 General: Alert, Oriented x3, Cooperative, No apparent distress Extremities: No cyanosis, Capillary Refill Less than 3 Seconds, No Calf Tenderness, Diminished Peripheral Pulses, Edema - Very mild lower extremity Skin: Ulcer/ Wound - No purulence, erythema, streaking, odor, infection. The ulcer has a granular base and has progressive peripheral epithelialization. The extending previous incision site at the 2:30 position is coapting well. There is no exposed bone or joint. Her adjacent skin is atrophic and hairless Wound Measurements and Assessment WC - Nurse 1 - General Ulcer Measurement Start: 05/31/20 13:45 Freq: Status: Active Protocol: Activity Type Activity Date Activity User E-Sign Co-Sign Detail Recorded Client Recorded Date Recorded By Document 06/15/20 14:45 RB [id number] 06/15/20 14:47 RB 06/15/20 14:45 Wound Center Nurse 1 [Ulcer Assessment] #6 Coccyx Cluster -Combined with other wound No #7 L Plantar Cluster -Combined with other wound No -Current Size (cm) - Length 2 -Current Size (cm) - Width 1 -Current Size (cm) - Depth 0.4 -Total Square Cm 2 -Tunneling No -Undermining/Tunneling No -Circular Undermining No -Exudate Amt Small -Exudate Type Serosanguineous -Wound Margin Thickened & Rolled Under -Granulation Amt Medium (34-66%) -Granulation Quality [place] -Slough/Fibrin Yes -Necrosis Amt Small (1-33%) -Necrotic Tissue Type Adherent Slough -Structure Exposed N/A -Texture (Shannon-wound Skin Appearance) Callus,Scarring -Moisture (Shannon-wound Skin Appearance Assessed ) -Color (Shannon-wound Skin Appearance) Assessed -Temperature (Shannon-wound Skin No Abnormality Appearance) (Pt Warm) -Tenderness on Palpation (Shannon-wound No Skin Appearance) -Ulcer Cleansing Wound Cleanser -Foul Odor after Cleansing No -Anesthetic Used 5% Lidocaine Gel WC - Nurse 2 - General Ulcer CM Notes Start: 05/31/20 13:45 Freq: Status: Active Protocol: Activity Type Activity Date Activity User E-Sign Co-Sign Detail Recorded Client Recorded Date Recorded By Document 06/15/20 14:55 [email or web address] [id number] 06/15/20 14:58 EULOGIO 06/15/20 14:55 Wound Center Nurse 2 [Procedure/Treatment] -Time 14:57 -Correct Patient Yes -Correct Side, Site, Position Yes -Correct Procedure Yes -Procedure Performed Yes -Type of Procedure Debridement -Clinical Debridement Subcutaneous -Tissue Removed Subcutaneous -Post Debridement (cm) - Length 0.7 -Post Debridement (cm) - Width 1 -Post Debridement (cm) - Depth 0.4 -Total Square (Post) (cm) 0.7 -Area of Debridement (cm) - Length 0.7 -Area of Debridement (cm) - Width 1 -Total Square (Area) (cm) 0.7 -Tunneling No -Undermining/Tunneling No -Circular Undermining No -Wound/Ulcer Outcome Not Healed -Ulcer Cleansing Rinsed/ Irrigated with Saline -Foul Odor after Cleansing No -Bioengineered Tissue No -Bleeding Controlled with Pressure -Offloading Yes -Type of Offloading Total Contact Cast (TCC) - Left ($) -Treatment Response Procedure Tolerated Well -Debridement - Subq, 1st 20sq cm Yes [See Physician Procedure note for Specifics] Pain Scale: 0-10 Numeric [Pain] -Is Patient Pain Free? Yes - Nurse 3 - General Ulcer D/C NN Start: 05/31/20 13:45 Freq: Status: Active Protocol: Activity Type Activity Date Activity User E-Sign Co-Sign Detail Recorded Client Recorded Date Recorded By Document 06/15/20 15:08 RB [id number] 06/15/20 15:10 RB 06/15/20 15:08 Wound Care Nurse 3 [Wound Dressing] #7 L Plantar Cluster -Primary Dressing Applied Promogran Lotus Matter -Other Dressing 3inch TCC PRIMARY LAYER APPLIED -Promogran Lotus Matter 1 [Post Procedure Tolerated] -Treatment Response Procedure Tolerated Well Vital Signs [Blood Pressure] -Blood Pressure (90/60-120/80) 124/57 H -Blood Pressure Mean (mm Hg) 79 -Source Monitor -Position Semi-Fowlers -Blood Pressure Location Left Arm Pain Scale: 0-10 Numeric [Pain] -Is Patient Pain Free? Yes - Visit Discharge [Visit Discharge Information] -Discharge Condition Stable -Ambulatory Status Ambulatory -Transportation Private Auto -Medication Reconcilliation completed No & provided to patient/care provider -Clinical Summary of Care Provided Yes Musculoskeletal: Muscle Wasting, - - Rocker-bottom foot deformity consistent with Charcot; this is acute and without laxity warmth or redness Neurological: - - Lack of epicritic sensation is consistent with neuropathy status Psych/Mental Status: Normal Affect, Appropriate Debridement Note Post-Debridement Measurements/Treatment WC - Nurse 2 - General Ulcer CM Notes Start: 05/31/20 13:45 Freq: Status: Active Protocol: Activity Type Activity Date Activity User E-Sign Co-Sign Detail Recorded Client Recorded Date Recorded By Document 05/31/20 15:51 PL [id number] 05/31/20 15:53 PL Document 06/01/20 16:20 PL [id number] 06/01/20 16:21 PL Document 06/07/20 14:21 MW [id number] 06/07/20 14:26 MW Document 06/08/20 13:49 JF [id number] 06/08/20 13:55 JF Document 06/15/20 14:55 JF [id number] 06/15/20 14:58 JF 05/31/20 06/01/20 06/07/20 15:51 16:20 14:21 Wound Center Nurse 2 #6 Coccyx Cluster -Time 14:28 14:24 -Correct Patient Yes Yes -Correct Side, Site, Position Yes Yes -Correct Procedure Yes Yes -Procedure Performed Yes No -Type of Procedure Debridement -Clinical Debridement Subcutaneous -Tissue Removed Subcutaneous -Post Debridement (cm) - Length 1.7 -Post Debridement (cm) - Width 1.0 -Post Debridement (cm) - Depth 0.1 -Total Square (Post) (cm) 1.70 -Area of Debridement (cm) - Length 1.7 -Area of Debridement (cm) - Width 1.0 -Total Square (Area) (cm) 1.70 -Tunneling No No -Undermining/Tunneling No No -Circular Undermining No No -Wound/Ulcer Outcome Not Healed -Ulcer Cleansing Rinsed/ Not Cleansed Irrigated with Saline -Foul Odor after Cleansing No No -Bioengineered Tissue No No -Bleeding Controlled with NA -Offloading No -Debridement - Subq, 1st 20sq cm Yes #7 L Plantar Cluster -Time 13:37 -Correct Patient Yes -Correct Side, Site, Position Yes -Correct Procedure Yes -Procedure Performed Yes -Type of Procedure Debridement -Clinical Debridement Subcutaneous -Tissue Removed Subcutaneous -Post Debridement (cm) - Length 1.8 -Post Debridement (cm) - Width 2 -Post Debridement (cm) - Depth 0.3 -Total Square (Post) (cm) 3.6 -Area of Debridement (cm) - Length 1.8 -Area of Debridement (cm) - Width 2 -Total Square (Area) (cm) 3.6 -Tunneling No -Undermining/Tunneling No -Circular Undermining No -Wound/Ulcer Outcome Not Healed -Ulcer Cleansing Rinsed/ Irrigated with Saline -Foul Odor after Cleansing No -Bioengineered Tissue No -Bleeding Controlled with -Offloading -Type of Offloading Total Contact Cast (TCC) - Left ($) -Treatment Response -Debridement - Subq, 1st 20sq cm Yes Pain Scale: 0-10 Numeric Is Patient Pain Free? Yes Yes 06/08/20 06/15/20 13:49 14:55 Wound Center Nurse 2 #6 Coccyx Cluster -Time -Correct Patient -Correct Side, Site, Position -Correct Procedure -Procedure Performed -Type of Procedure -Clinical Debridement -Tissue Removed -Post Debridement (cm) - Length -Post Debridement (cm) - Width -Post Debridement (cm) - Depth -Total Square (Post) (cm) -Area of Debridement (cm) - Length -Area of Debridement (cm) - Width -Total Square (Area) (cm) -Tunneling -Undermining/Tunneling -Circular Undermining -Wound/Ulcer Outcome -Ulcer Cleansing -Foul Odor after Cleansing -Bioengineered Tissue -Bleeding Controlled with -Offloading -Debridement - Subq, 1st 20sq cm #7 L Plantar Cluster -Time 13:51 14:57 -Correct Patient Yes Yes -Correct Side, Site, Position Yes Yes -Correct Procedure Yes Yes -Procedure Performed Yes Yes -Type of Procedure Debridement Debridement -Clinical Debridement Subcutaneous Subcutaneous -Tissue Removed Subcutaneous Subcutaneous -Post Debridement (cm) - Length 3.8 0.7 -Post Debridement (cm) - Width 1 1 -Post Debridement (cm) - Depth 0.3 0.4 -Total Square (Post) (cm) 3.8 0.7 -Area of Debridement (cm) - Length 3.8 0.7 -Area of Debridement (cm) - Width 1 1 -Total Square (Area) (cm) 3.8 0.7 -Tunneling No No -Undermining/Tunneling No No -Circular Undermining No No -Wound/Ulcer Outcome Not Healed -Ulcer Cleansing Rinsed/ Rinsed/ Irrigated with Irrigated with Saline Saline -Foul Odor after Cleansing No No -Bioengineered Tissue No No -Bleeding Controlled with Pressure Pressure -Offloading Yes Yes -Type of Offloading Total Contact Total Contact Cast (TCC) - Cast (TCC) - Left ($) Left ($) -Treatment Response Procedure Procedure Tolerated Well Tolerated Well -Debridement - Subq, 1st 20sq cm Yes Yes Pain Scale: 0-10 Numeric Is Patient Pain Free? Yes Yes WC - Nurse 3 - General Ulcer D/C NN Start: 05/31/20 13:45 Freq: Status: Active Protocol: Activity Type Activity Date Activity User E-Sign Co-Sign Detail Recorded Client Recorded Date Recorded By Document 05/31/20 15:01 DL [id number] 05/31/20 15:02 DL Document 06/01/20 14:03 KR [id number] 06/01/20 14:04 KR Document 06/15/20 15:08 RB [id number] 06/15/20 15:10 RB 05/31/20 06/01/20 06/15/20 15:01 14:03 15:08 Wound Care Nurse 3 #6 Coccyx Cluster -Ulcer Cleansing Rinsed/ Irrigated with Saline -Foul Odor after Cleansing No -Primary Dressing Applied Mepilex Border -Mepilex Border 2 #7 L Plantar Cluster -Ulcer Cleansing Rinsed/ Irrigated with Saline -Foul Odor after Cleansing No -Primary Dressing Applied Promogran Promogran Lotus Matter Lotus Matter -Other Dressing TCC 3inch TCC PRIMARY LAYER APPLIED -Promogran Lotus Matter 1 1 Treatment Response Procedure Procedure Tolerated Well Tolerated Well Vital Signs Blood Pressure (90/60-120/80) 124/57 H Blood Pressure Mean (mm Hg) 79 Source Monitor Position Semi-Fowlers Blood Pressure Location Left Arm Pain Scale: 0-10 Numeric Is Patient Pain Free? Yes Yes Yes WC - Visit Discharge Discharge Condition Stable Stable Stable Ambulatory Status Ambulatory Ambulatory Ambulatory Transportation Private Auto Private Auto Private Auto Medication Reconcilliation completed & No provided to patient/care provider Clinical Summary of Care Provided Yes Notes: Mepilex border to abd also. Pt has appt with Dr Massey for abd ulcer. Wound debrided: plantar midfoot Laterality: Left Wound Grade/Stage: grade 1 Type of Debridement: Excisional debridement Anesthesia Used: 5% Lidocaine Gel Depth: in the subcutaneous layer Percentage of wound debrided: 100 Instrument Used: #15 blade Tissue Removed: fibrous, devitalized subcutaneous, biofilm, slough Severity: Fat Layer Exposed Amount of bleeding with debridement: Mild Bleeding Controlled with: Pressure Patient tolerated procedure well Assessment/Plan Active Problems (Last Reviewed 06/10/20 @ 21:[address] 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 Midfoot Charcot deformity, left. Diabetes with neuropathy. Malnutrition suspected. other comorbidities. non-healing decubitus ulcers of the sacrum/coccyx Plan: I reviewed and discussed her case. Excisional subcutaneous debridement was performed as noted in the clinical nursing panel. She is reassured no local signs of infection are noted. Lotus was applied. An additional total contact cast was applied after verbal consent according standard protocol in a rectus neutral well-padded position. She tolerated this well. The purpose indication and anticipated healing time and management reviewed. Updated lab work was ordered for follow-up of her nonhealing wound and prior infection status. She does not have leukocytosis or elevation of her ESR C-reactive protein. To continue proper glycemic control. A nutrition referral was recommended and provided previously for evaluation and management of her diabetes taking into consideration her prior gastric bypass restrictions and also her lifestyle changes. She continues alejandro supplementation. To follow-up with the wound healing center in 1 week or call sooner if she has any questions or concerns or development of local or systemic infection. I answered all of her questions. She has significant delays in healing and ulcers to multiple other sites including her abdomen (recently healed) and now buttock. She is seeing other wound care center providers for her nonpodiatric wound sites.
[2020-06-22 08:44] VITALS: BP 148/76; PULSE 71; TEMP 36; BMI 30.9
[2020-06-22 09:00] VITALS: BP 148/76; PULSE 71; TEMP 36; BMI 30.9
--- NOTE | 2020-06-22 09:20 | PCM.WC.PN ---
(1) Decubitus ulcer of sacral region, stage 2 Status: Acute Code(s): L89.152 - Pressure ulcer of sacral region, stage 2 (2) Type 2 diabetes mellitus with diabetic polyneuropathy Status: Chronic Code(s): E11.42 - Type 2 diabetes mellitus with diabetic polyneuropathy Type of Wound Date of Service: 06/22/20 Chief Complaint: Left foot History of Wound: This is 74-year-old female with diabetic neuropathy history of Charcot left foot with rocker-bottom deformity, coronary artery disease and other comorbidities has a recurrent ulcer. She denies fever, chill, nausea, vomiting. She had a recent incision and drainage for gas infection of the left foot with serial debridements and wound care and delayed closure with application of advanced wound healing product in the operating room. She has been doing well and is stable. She is amendable to proceed with a total contact cast again today. She has other ulcers at this time also. She would like to review her labs that were obtained last week. She has developed a stage 2 decubitus ulcer in the sacrum area from sitting and shearing in a chair . Progress of Wound: The decubitus ulcer of the sacral area is healing well .Tiny pinpoint spots still open dkoing well using a new crate egg-crate cushion and off loaking also taking alejandro 1-2 x a day . - Physical Exam Vital Signs Temp Pulse Resp BP 96.8 F L 71 18 148/76 H 06/22/20 08:44 06/22/20 08:44 06/15/20 14:45 06/22/20 08:44 General: Oriented x3, Cooperative, Well developed HEENT: Atraumatic, PERRLA Oral: Moist Mucosa Neck: Supple, No JVD Lungs: Clear to auscultation, Normal air movement Cardiovascular: Regular rate, Regular Rhythm Abdomen: Bowel Sounds Present, Soft, Non Tender, No Hepato-splenomegaly Extremities: No clubbing, No edema Skin: Ulcer/ Wound - decubitus ulcer sacral area Wound Measurements and Assessment WC - Nurse 1 - General Ulcer Measurement Start: 05/31/20 13:45 Freq: Status: Active Protocol: Activity Type Activity Date Activity User E-Sign Co-Sign Detail Recorded Client Recorded Date Recorded By Document 06/22/20 08:44 MALIA [id number] 06/22/20 08:47 KR 06/22/20 08:44 Wound Center Nurse 1 [Ulcer Assessment] #6 Coccyx Cluster -Current Size (cm) - Length 0.1 -Current Size (cm) - Width 0.1 -Current Size (cm) - Depth 0.1 -Total Square Cm 0.01 -Exudate Amt Small -Exudate Type Serosanguineous -Wound Margin Distinct, Outline Attached -Granulation Amt Small (1-33%) -Granulation Quality [place] -Necrosis Amt Small (1-33%) -Necrotic Tissue Type Adherent Slough -Texture (Shannon-wound Skin Appearance) Assessed, Scarring -Moisture (Shannon-wound Skin Appearance No Abnormality, ) Assessed -Color (Shannon-wound Skin Appearance) No Abnormality, Assessed -Temperature (Shannon-wound Skin No Abnormality Appearance) (Pt Warm) -Tenderness on Palpation (Shannon-wound No Skin Appearance) -Ulcer Cleansing Rinsed/ Irrigated with Saline -Foul Odor after Cleansing No -Anesthetic Used 4% Lidocaine Solution Musculoskeletal: No Tenderness to Palpation of Joints or Extremities Lymphatic: No Cervical, Supraclavicular, or Inguinal Adenopathy Neurological: Cranial nerves II-XII grossly intact, Neuro grossly intact Psych/Mental Status: Normal Affect, Appropriate Debridement Note Post-Debridement Measurements/Treatment WC - Nurse 2 - General Ulcer CM Notes Start: 05/31/20 13:45 Freq: Status: Active Protocol: Activity Type Activity Date Activity User E-Sign Co-Sign Detail Recorded Client Recorded Date Recorded By Document 05/31/20 15:51 PL [id number] 05/31/20 15:53 PL Document 06/01/20 16:20 PL [id number] 06/01/20 16:21 PL Document 06/07/20 14:21 MW [id number] 06/07/20 14:26 MW Document 06/08/20 13:49 JF [id number] 06/08/20 13:55 JF Document 06/15/20 14:55 JF [id number] 06/15/20 14:58 JF 05/31/20 06/01/20 06/07/20 15:51 16:20 14:21 Wound Center Nurse 2 #6 Coccyx Cluster -Time 14:28 14:24 -Correct Patient Yes Yes -Correct Side, Site, Position Yes Yes -Correct Procedure Yes Yes -Procedure Performed Yes No -Type of Procedure Debridement -Clinical Debridement Subcutaneous -Tissue Removed Subcutaneous -Post Debridement (cm) - Length 1.7 -Post Debridement (cm) - Width 1.0 -Post Debridement (cm) - Depth 0.1 -Total Square (Post) (cm) 1.70 -Area of Debridement (cm) - Length 1.7 -Area of Debridement (cm) - Width 1.0 -Total Square (Area) (cm) 1.70 -Tunneling No No -Undermining/Tunneling No No -Circular Undermining No No -Wound/Ulcer Outcome Not Healed -Ulcer Cleansing Rinsed/ Not Cleansed Irrigated with Saline -Foul Odor after Cleansing No No -Bioengineered Tissue No No -Bleeding Controlled with NA -Offloading No -Debridement - Subq, 1st 20sq cm Yes #7 L Plantar Cluster -Time 13:37 -Correct Patient Yes -Correct Side, Site, Position Yes -Correct Procedure Yes -Procedure Performed Yes -Type of Procedure Debridement -Clinical Debridement Subcutaneous -Tissue Removed Subcutaneous -Post Debridement (cm) - Length 1.8 -Post Debridement (cm) - Width 2 -Post Debridement (cm) - Depth 0.3 -Total Square (Post) (cm) 3.6 -Area of Debridement (cm) - Length 1.8 -Area of Debridement (cm) - Width 2 -Total Square (Area) (cm) 3.6 -Tunneling No -Undermining/Tunneling No -Circular Undermining No -Wound/Ulcer Outcome Not Healed -Ulcer Cleansing Rinsed/ Irrigated with Saline -Foul Odor after Cleansing No -Bioengineered Tissue No -Bleeding Controlled with -Offloading -Type of Offloading Total Contact Cast (TCC) - Left ($) -Treatment Response -Debridement - Subq, 20sq cm Yes Pain Scale: 0-10 Numeric Is Patient Pain Free? Yes Yes 06/08/20 06/15/20 13:49 14:55 Wound Center Nurse 2 #6 Coccyx Cluster -Time -Correct Patient -Correct Side, Site, Position -Correct Procedure -Procedure Performed -Type of Procedure -Clinical Debridement -Tissue Removed -Post Debridement (cm) - Length -Post Debridement (cm) - Width -Post Debridement (cm) - Depth -Total Square (Post) (cm) -Area of Debridement (cm) - Length -Area of Debridement (cm) - Width -Total Square (Area) (cm) -Tunneling -Undermining/Tunneling -Circular Undermining -Wound/Ulcer Outcome -Ulcer Cleansing -Foul Odor after Cleansing -Bioengineered Tissue -Bleeding Controlled with -Offloading -Debridement - Subq, 1st 20sq cm #7 L Plantar Cluster -Time 13:51 14:57 -Correct Patient Yes Yes -Correct Side, Site, Position Yes Yes -Correct Procedure Yes Yes -Procedure Performed Yes Yes -Type of Procedure Debridement Debridement -Clinical Debridement Subcutaneous Subcutaneous -Tissue Removed Subcutaneous Subcutaneous -Post Debridement (cm) - Length 3.8 0.7 -Post Debridement (cm) - Width 1 1 -Post Debridement (cm) - Depth 0.3 0.4 -Total Square (Post) (cm) 3.8 0.7 -Area of Debridement (cm) - Length 3.8 0.7 -Area of Debridement (cm) - Width 1 1 -Total Square (Area) (cm) 3.8 0.7 -Tunneling No No -Undermining/Tunneling No No -Circular Undermining No No -Wound/Ulcer Outcome Not Healed -Ulcer Cleansing Rinsed/ Rinsed/ Irrigated with Irrigated with Saline Saline -Foul Odor after Cleansing No No -Bioengineered Tissue No No -Bleeding Controlled with Pressure Pressure -Offloading Yes Yes -Type of Offloading Total Contact Total Contact Cast (TCC) - Cast (TCC) - Left ($) Left ($) -Treatment Response Procedure Procedure Tolerated Well Tolerated Well -Debridement - Subq, 1st 20sq cm Yes Yes Pain Scale: 0-10 Numeric Is Patient Pain Free? Yes Yes WC - Nurse 3 - General Ulcer D/C NN Start: 05/31/20 13:45 Freq: Status: Active Protocol: Activity Type Activity Date Activity User E-Sign Co-Sign Detail Recorded Client Recorded Date Recorded By Document 05/31/20 15:01 DL [id number] 05/31/20 15:02 DL Document 06/01/20 14:03 KR [id number] 06/01/20 14:04 KR Document 06/15/20 15:08 RB [id number] 06/15/20 15:10 RB 05/31/20 06/01/20 06/15/20 15:01 14:03 15:08 Wound Care Nurse 3 #6 Coccyx Cluster -Ulcer Cleansing Rinsed/ Irrigated with Saline -Foul Odor after Cleansing No -Primary Dressing Applied Mepilex Border -Mepilex Border 2 #7 L Plantar Cluster -Ulcer Cleansing Rinsed/ Irrigated with Saline -Foul Odor after Cleansing No -Primary Dressing Applied Promogran Promogran Lotus Matter Lotus Matter -Other Dressing TCC 3inch TCC PRIMARY LAYER APPLIED -Promogran Lotus Matter 1 1 Treatment Response Procedure Procedure Tolerated Well Tolerated Well Vital Signs Blood Pressure (90/60-120/80 mm Hg) 124/57 H Blood Pressure Mean (mm Hg) 79 Source Monitor Position Semi-Fowlers Blood Pressure Location Left Arm Pain Scale: 0-10 Numeric Is Patient Pain Free? Yes Yes Yes WC - Visit Discharge Discharge Condition Stable Stable Stable Ambulatory Status Ambulatory Ambulatory Ambulatory Transportation Private Auto Private Auto Private Auto Medication Reconcilliation completed & No provided to patient/care provider Clinical Summary of Care Provided Yes Notes: Mepilex border to abd also. Pt has appt with Dr Massey for abd ulcer. Wound debrided: sacral Type of Debridement: Excisional debridement Anesthesia Used: 5% Lidocaine Gel Depth: Down to and including healthy tissue, in the subcutaneous layer Percentage of wound debrided: 100 Instrument Used: 3mm curette Tissue Removed: slough Severity: Limited To Skin Breakdown Amount of bleeding with debridement: Mild Bleeding Controlled with: Pressure Patient tolerated procedure well Assessment/Plan Active Problems (Last Reviewed 06/10/20 @ 21:[address] 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 Midfoot Charcot deformity, left. Diabetes with neuropathy. Malnutrition suspected. decubitus ulcer sacral area. non-healing decubitus ulcers of the sacrum/coccyx Plan: continue washing the area with antibacaterial soap. applying optifoam dressing to the area. follow up 1 week
--- NOTE | 2020-06-22 09:59 | PN.PCM_ITS ---
(1) Decubitus ulcer of sacral region, stage 2 Status: Acute Code(s): L89.152 - Pressure ulcer of sacral region, stage 2 (2) Type 2 diabetes mellitus with diabetic polyneuropathy Status: Chronic Code(s): E11.42 - Type 2 diabetes mellitus with diabetic po lyneuropathy Type of Wound Date of Service: 06/22/20 Chief Complaint: Left foot History of Wound: This is 74-year-old female with diabetic neuropathy history of Charcot left foot with rocker-bottom deformity, coronary artery disease and other comorbidities has a recurrent ulcer. She denies fever, chill, nausea, vomiting. She had a recent incision and drainage for gas infection of the left foot with serial debridements and wound care and delayed closure with application of advanced wound healing product in the operating room. She has been doing well and is stable. She is amendable to proceed with a total contact cast again today. She has other ulcers at this time also. She would like to review her labs that were obtained last week. Patient has developed a decubitus ulcer in her coccyx area from sitting too much from her other comorbidities. Progress of Wound: Coccyx area is healing well patient is tolerant to the medications used and is using a eggcrate to sit on which is much improved her pressure she is also offloading better and taking Blue 2 times a day. - Physical Exam Vital Signs Temp Pulse Resp BP 96.8 F L 71 18 148/76 H 06/22/20 08:44 06/22/20 08:44 06/15/20 14:45 06/22/20 08:44 General: Oriented x3, Cooperative, Well developed HEENT: Atraumatic, PERRLA Oral: Moist Mucosa Neck: Supple, No JVD Lungs: Clear to auscultation, Normal air movement Cardiovascular: Regular rate, Regular Rhythm Abdomen: Bowel Sounds Present, Soft, Non Tender, No Hepato-splenomegaly Extremities: No clubbing, No edema Skin: Ulcer/ Wound - Cubitus ulcers in the sacral area Wound Measurements and Assessment WC - Nurse 1 - General Ulcer Measurement Start: 05/31/20 13:45 Freq: Status: Active Protocol: Activity Type Activity Date Activity User E-Sign Co-Sign Detail Recorded Client Recorded Date Recorded By Document 06/22/20 08:44 MALIA [id number] 06/22/20 08:47 KR 06/22/20 08:44 Wound Center Nurse 1 [Ulcer Assessment] #6 Coccyx Cluster -Current Size (cm) - Length 0.1 -Current Size (cm) - Width 0.1 -Current Size (cm) - Depth 0.1 -Total Square Cm 0.01 -Exudate Amt Small -Exudate Type Serosanguineous -Wound Margin Distinct, Outline Attached -Granulation Amt Small (1-33%) -Granulation Quality [place] -Necrosis Amt Small (1-33%) -Necrotic Tissue Type Adherent Slough -Texture (Shannon-wound Skin Appearance) Assessed, Scarring -Moisture (Shannon-wound Skin Appearance No Abnormality, ) Assessed -Color (Shannon-wound Skin Appearance) No Abnormality, Assessed -Temperature (Shannon-wound Skin No Abnormality Appearance) (Pt Warm) -Tenderness on Palpation (Shannon-wound No Skin Appearance) -Ulcer Cleansing Rinsed/ Irrigated with Saline -Foul Odor after Cleansing No -Anesthetic Used 4% Lidocaine Solution WC - Nurse 2 - General Ulcer CM Notes Start: 05/31/20 13:45 Freq: Status: Active Protocol: Activity Type Activity Date Activity User E-Sign Co-Sign Detail Recorded Client Recorded Date Recorded By Document 06/22/20 09:22 [id number] 06/22/20 09:25 06/22/20 09:22 Wound Center Nurse 2 [Procedure/Treatment] #7 L Plantar Cluster -Time 09:22 -Correct Patient Yes -Correct Side, Site, Position Yes -Correct Procedure Yes -Procedure Performed Yes -Type of Procedure Debridement -Clinical Debridement Subcutaneous -Tissue Removed Subcutaneous -Post Debridement (cm) - Length 0.6 -Post Debridement (cm) - Width 0.7 -Post Debridement (cm) - Depth 0.4 -Total Square (Post) (cm) 0.42 -Area of Debridement (cm) - Length 0.6 -Area of Debridement (cm) - Width 0.7 -Total Square (Area) (cm) 0.42 -Tunneling No -Undermining/Tunneling No -Circular Undermining No -Wound/Ulcer Outcome Not Healed -Ulcer Cleansing Rinsed/ Irrigated with Saline -Foul Odor after Cleansing No -Bioengineered Tissue No -Bleeding Controlled with Pressure -Offloading Yes -Type of Offloading Total Contact Cast (TCC) - Left ($) -Treatment Response Procedure Tolerated Well -Debridement - Subq, 1st 20sq cm Yes [See Physician Procedure note for Specifics] Pain Scale: 0-10 Numeric [Pain] -Is Patient Pain Free? Yes Musculoskeletal: No Tenderness to Palpation of Joints or Extremities Lymphatic: No Cervical, Supraclavicular, or Inguinal Adenopathy Neurological: Cranial nerves II-XII grossly intact, Neuro grossly intact Psych/Mental Status: Normal Affect, Appropriate Debridement Note Post-Debridement Measurements/Treatment WC - Nurse 2 - General Ulcer CM Notes Start: 05/31/20 13:45 Freq: Status: Active Protocol: Activity Type Activity Date Activity User E-Sign Co-Sign Detail Recorded Client Recorded Date Recorded By Document 05/31/20 15:51 PL [id number] 05/31/20 15:53 PL Document 06/01/20 16:20 PL [id number] 06/01/20 16:21 PL Document 06/07/20 14:21 MW [id number] 06/07/20 14:26 MW Document 06/08/20 13:49 JF [id number] 06/08/20 13:55 JF Document 06/15/20 14:55 JF [id number] 06/15/20 14:58 JF Document 06/22/20 09:22 JF [id number] 06/22/20 09:25 JF 05/31/20 06/01/20 06/07/20 15:51 16:20 14:21 Wound Center Nurse 2 #6 Coccyx Cluster -Time 14:28 14:24 -Correct Patient Yes Yes -Correct Side, Site, Position Yes Yes -Correct Procedure Yes Yes -Procedure Performed Yes No -Type of Procedure Debridement -Clinical Debridement Subcutaneous -Tissue Removed Subcutaneous -Post Debridement (cm) - Length 1.7 -Post Debridement (cm) - Width 1.0 -Post Debridement (cm) - Depth 0.1 -Total Square (Post) (cm) 1.70 -Area of Debridement (cm) - Length 1.7 -Area of Debridement (cm) - Width 1.0 -Total Square (Area) (cm) 1.70 -Tunneling No No -Undermining/Tunneling No No -Circular Undermining No No -Wound/Ulcer Outcome Not Healed -Ulcer Cleansing Rinsed/ Not Cleansed Irrigated with Saline -Foul Odor after Cleansing No No -Bioengineered Tissue No No -Bleeding Controlled with NA -Offloading No -Debridement - Subq, 1st 20sq cm Yes #7 L Plantar Cluster -Time 13:37 -Correct Patient Yes -Correct Side, Site, Position Yes -Correct Procedure Yes -Procedure Performed Yes -Type of Procedure Debridement -Clinical Debridement Subcutaneous -Tissue Removed Subcutaneous -Post Debridement (cm) - Length 1.8 -Post Debridement (cm) - Width 2 -Post Debridement (cm) - Depth 0.3 -Total Square (Post) (cm) 3.6 -Area of Debridement (cm) - Length 1.8 -Area of Debridement (cm) - Width 2 -Total Square (Area) (cm) 3.6 -Tunneling No -Undermining/Tunneling No -Circular Undermining No -Wound/Ulcer Outcome Not Healed -Ulcer Cleansing Rinsed/ Irrigated with Saline -Foul Odor after Cleansing No -Bioengineered Tissue No -Bleeding Controlled with -Offloading -Type of Offloading Total Contact Cast (TCC) - Left ($) -Treatment Response -Debridement - Subq, 1st 20sq cm Yes Pain Scale: 0-10 Numeric Is Patient Pain Free? Yes Yes 06/08/20 06/15/20 06/22/20 13:49 14:55 09:22 Wound Center Nurse 2 #6 Coccyx Cluster -Time -Correct Patient -Correct Side, Site, Position -Correct Procedure -Procedure Performed -Type of Procedure -Clinical Debridement -Tissue Removed -Post Debridement (cm) - Length -Post Debridement (cm) - Width -Post Debridement (cm) - Depth -Total Square (Post) (cm) -Area of Debridement (cm) - Length -Area of Debridement (cm) - Width -Total Square (Area) (cm) -Tunneling -Undermining/Tunneling -Circular Undermining -Wound/Ulcer Outcome -Ulcer Cleansing -Foul Odor after Cleansing -Bioengineered Tissue -Bleeding Controlled with -Offloading -Debridement - Subq, 1st 20sq cm #7 L Plantar Cluster -Time 13:51 14:57 09:22 -Correct Patient Yes Yes Yes -Correct Side, Site, Position Yes Yes Yes -Correct Procedure Yes Yes Yes -Procedure Performed Yes Yes Yes -Type of Procedure Debridement Debridement Debridement -Clinical Debridement Subcutaneous Subcutaneous Subcutaneous -Tissue Removed Subcutaneous Subcutaneous Subcutaneous -Post Debridement (cm) - Length 3.8 0.7 0.6 -Post Debridement (cm) - Width 1 1 0.7 -Post Debridement (cm) - Depth 0.3 0.4 0.4 -Total Square (Post) (cm) 3.8 0.7 0.42 -Area of Debridement (cm) - Length 3.8 0.7 0.6 -Area of Debridement (cm) - Width 1 1 0.7 -Total Square (Area) (cm) 3.8 0.7 0.42 -Tunneling No No No -Undermining/Tunneling No No No -Circular Undermining No No No -Wound/Ulcer Outcome Not Healed Not Healed -Ulcer Cleansing Rinsed/ Rinsed/ Rinsed/ Irrigated with Irrigated with Irrigated with Saline Saline Saline -Foul Odor after Cleansing No No No -Bioengineered Tissue No No No -Bleeding Controlled with Pressure Pressure Pressure -Offloading Yes Yes Yes -Type of Offloading Total Contact Total Contact Total Contact Cast (TCC) - Cast (TCC) - Cast (TCC) - Left ($) Left ($) Left ($) -Treatment Response Procedure Procedure Procedure Tolerated Well Tolerated Well Tolerated Well -Debridement - Subq, 1st 20sq cm Yes Yes Yes Pain Scale: 0-10 Numeric Is Patient Pain Free? Yes Yes Yes - Nurse 3 - General Ulcer D/C NN Start: 05/31/20 13:45 Freq: Status: Active Protocol: Activity Type Activity Date Activity User E-Sign Co-Sign Detail Recorded Client Recorded Date Recorded By Document 05/31/20 15:01 DL [id number] 05/31/20 15:02 DL Document 06/01/20 14:03 KR [id number] 06/01/20 14:04 KR Document 06/15/20 15:08 RB [id number] 06/15/20 15:10 RB 05/31/20 06/01/20 06/15/20 15:01 14:03 15:08 Wound Care Nurse 3 #6 Coccyx Cluster -Ulcer Cleansing Rinsed/ Irrigated with Saline -Foul Odor after Cleansing No -Primary Dressing Applied Mepilex Border -Mepilex Border 2 #7 L Plantar Cluster -Ulcer Cleansing Rinsed/ Irrigated with Saline -Foul Odor after Cleansing No -Primary Dressing Applied Promogran Promogran Lotus Matter Lotus Matter -Other Dressing TCC 3inch TCC PRIMARY LAYER APPLIED -Promogran Lotus Matter 1 1 Treatment Response Procedure Procedure Tolerated Well Tolerated Well Vital Signs Blood Pressure (90/60-120/80 mm Hg) 124/57 H Blood Pressure Mean (mm Hg) 79 Source Monitor Position Semi-Fowlers Blood Pressure Location Left Arm Pain Scale: 0-10 Numeric Is Patient Pain Free? Yes Yes Yes WC - Visit Discharge Discharge Condition Stable Stable Stable Ambulatory Status Ambulatory Ambulatory Ambulatory Transportation Private Auto Private Auto Private Auto Medication Reconcilliation completed & No provided to patient/care provider Clinical Summary of Care Provided Yes Notes: Mepilex border to abd also. Pt has appt with Dr Massey for abd ulcer. Wound debrided: Coccyx area decubitus ulcer Type of Debridement: Excisional debridement Anesthesia Used: 5% Lidocaine Gel Instrument Used: 3mm curette Tissue Removed: Slough Severity: Limited To Skin Breakdown Bleeding Controlled with: Compression and gauze Patient tolerated procedure well Assessment/Plan Active Problems (Last Reviewed 06/10/20 @ 21:[address] 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 Midfoot Charcot deformity, left. Diabetes with neuropathy. Malnutrition suspected. decubitus ulcer stage 2 coccyx area. non-healing decubitus ulcers of the sacrum/coccyx Plan: Wash area of the coccyx with antibacterial soap. Apply Optifoam dressing to area every day. Continue offloading with the eggcrate and continue taking Blue 2 times a day. Follow-up in 1 week
--- NOTE | 2020-06-22 22:50 | PN.PCM_ITS ---
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 She denies fever, chill, nausea, vomiting. She had a recent incision and drainage for gas infection of the left foot with serial debridements and wound care and delayed closure with application of advanced wound healing product in the operating room. She has been doing well and is stable. She is amendable to proceed with a total contact cast again today. She has other ulcers at this time also. Progress of Wound: Improving - Physical Exam Vital Signs Temp Pulse Resp BP 96.8 F L 71 18 148/76 H 06/22/20 09:00 06/22/20 09:00 06/15/20 14:45 06/22/20 09:00 General: Alert, Oriented x3, Cooperative, No apparent distress HEENT: Atraumatic Extremities: No cyanosis, Capillary Refill Less than 3 Seconds, No Calf Tenderness, Diminished Peripheral Pulses, Edema - Decreased Skin: Ulcer/ Wound - No purulence, erythema, streaking, odor, infection. Peripheral skin is hairless and atrophic. Prior distal incision aspect is fully epithelialized and the Steri-Strips are removed. Her ulcer size has significantly reduced and there is no deep tissue exposure Wound Measurements and Assessment WC - Nurse 1 - General Ulcer Measurement Start: 05/31/20 13:45 Freq: Status: Active Protocol: Activity Type Activity Date Activity User E-Sign Co-Sign Detail Recorded Client Recorded Date Recorded By Document 06/22/20 08:44 KR [id number] 06/22/20 08:47 KR Document 06/22/20 09:00 MW [id number] 06/22/20 10:59 MW 06/22/20 06/22/20 08:44 09:00 Wound Center Nurse 1 [Ulcer Assessment] #6 Coccyx Cluster -Current Size (cm) - Length 0.1 -Current Size (cm) - Width 0.1 -Current Size (cm) - Depth 0.1 -Total Square Cm 0.01 -Exudate Amt Small -Exudate Type Serosanguineous -Wound Margin Distinct, Outline Attached -Granulation Amt Small (1-33%) -Granulation Quality [place] -Necrosis Amt Small (1-33%) -Necrotic Tissue Type Adherent Slough -Texture (Shannon-wound Skin Appearance) Assessed, Scarring -Moisture (Shannon-wound Skin Appearance No Abnormality, ) Assessed -Color (Shannon-wound Skin Appearance) No Abnormality, Assessed -Temperature (Shannon-wound Skin No Abnormality Appearance) (Pt Warm) -Tenderness on Palpation (Shannon-wound No Skin Appearance) -Ulcer Cleansing Rinsed/ Irrigated with Saline -Foul Odor after Cleansing No -Anesthetic Used 4% Lidocaine Solution #7 L Plantar Cluster -Combined with other wound No -Current Size (cm) - Length 0.5 -Current Size (cm) - Width 0.8 -Current Size (cm) - Depth 0.4 -Total Square Cm 0.40 -Photo Taken No -Epithelialization Small 1-33% -Tunneling No -Undermining/Tunneling No -Circular Undermining No -Exudate Amt Small -Exudate Type Serosanguineous -Wound Margin Flat & Intact -Granulation Amt Small (1-33%) -Granulation Quality [place] -Slough/Fibrin Yes -Necrosis Amt Medium (34-66%) -Necrotic Tissue Type Adherent Slough -Structure Exposed N/A -Texture (Shannon-wound Skin Appearance) Assessed, Scarring -Moisture (Shannon-wound Skin Appearance Assessed,Dry/ ) Scaly -Color (Shannon-wound Skin Appearance) No Abnormality, Assessed -Temperature (Shannon-wound Skin No Abnormality Appearance) (Pt Warm) -Tenderness on Palpation (Shannon-wound Yes Skin Appearance) -Ulcer Cleansing Rinsed/ Irrigated with Saline -Foul Odor after Cleansing No -Anesthetic Used 4% Lidocaine Solution [Edema Assessment] -Lower Limb Edema Present No WC - Nurse 2 - General Ulcer CM Notes Start: 05/31/20 13:45 Freq: Status: Active Protocol: Activity Type Activity Date Activity User E-Sign Co-Sign Detail Recorded Client Recorded Date Recorded By Document 06/22/20 08:50 MW [id number] 06/22/20 10:51 MW Document 06/22/20 09:22 JF [id number] 06/22/20 09:25 JF 06/22/20 06/22/20 08:50 09:22 Wound Center Nurse 2 [Procedure/Treatment] #6 Coccyx Cluster -Time 08:50 -Correct Patient Yes -Correct Side, Site, Position Yes -Correct Procedure Yes -Procedure Performed Yes -Type of Procedure Debridement -Clinical Debridement Subcutaneous -Tissue Removed Subcutaneous -Post Debridement (cm) - Length 0.3 -Post Debridement (cm) - Width 0.2 -Post Debridement (cm) - Depth 0.1 -Total Square (Post) (cm) 0.06 -Area of Debridement (cm) - Length 0.3 -Area of Debridement (cm) - Width 0.2 -Total Square (Area) (cm) 0.06 -Tunneling No -Undermining/Tunneling No -Circular Undermining No -Wound/Ulcer Outcome Not Healed -Ulcer Cleansing Rinsed/ Irrigated with Saline -Foul Odor after Cleansing No -Bioengineered Tissue No -Bleeding Controlled with Pressure -Offloading No -Debridement - Subq, 1st 20sq cm Yes #7 L Plantar Cluster -Time 09:22 -Correct Patient Yes -Correct Side, Site, Position Yes -Correct Procedure Yes -Procedure Performed Yes -Type of Procedure Debridement -Clinical Debridement Subcutaneous -Tissue Removed Subcutaneous -Post Debridement (cm) - Length 0.6 -Post Debridement (cm) - Width 0.7 -Post Debridement (cm) - Depth 0.4 -Total Square (Post) (cm) 0.42 -Area of Debridement (cm) - Length 0.6 -Area of Debridement (cm) - Width 0.7 -Total Square (Area) (cm) 0.42 -Tunneling No -Undermining/Tunneling No -Circular Undermining No -Wound/Ulcer Outcome Not Healed -Ulcer Cleansing Rinsed/ Irrigated with Saline -Foul Odor after Cleansing No -Bioengineered Tissue No -Bleeding Controlled with Pressure -Offloading Yes -Type of Offloading Total Contact Cast (TCC) - Left ($) -Treatment Response Procedure Tolerated Well -Debridement - Subq, 1st 20sq cm Yes [See Physician Procedure note for Specifics] Pain Scale: 0-10 Numeric [Pain] -Is Patient Pain Free? Yes Musculoskeletal: Muscle Wasting, Tenderness - Decreased to plantar rocker midfoot Neurological: - - Lack of normal epicritic sensation is consistent with neuropathy status Psych/Mental Status: Normal Affect, Appropriate Debridement Note Post-Debridement Measurements/Treatment WC - Nurse 2 - General Ulcer CM Notes Start: 05/31/20 13:45 Freq: Status: Active Protocol: Activity Type Activity Date Activity User E-Sign Co-Sign Detail Recorded Client Recorded Date Recorded By Document 05/31/20 15:51 PL [id number] 05/31/20 15:53 PL Document 06/01/20 16:20 PL [id number] 06/01/20 16:21 PL Document 06/07/20 14:21 MW [id number] 06/07/20 14:26 MW Document 06/08/20 13:49 JF [id number] 06/08/20 13:55 JF Document 06/15/20 14:55 JF [id number] 06/15/20 14:58 JF Document 06/22/20 08:50 MW [id number] 06/22/20 10:51 MW Document 06/22/20 09:22 JF [id number] 06/22/20 09:25 JF 05/31/20 06/01/20 06/07/20 15:51 16:20 14:21 Wound Center Nurse 2 #6 Coccyx Cluster -Time 14:28 14:24 -Correct Patient Yes Yes -Correct Side, Site, Position Yes Yes -Correct Procedure Yes Yes -Procedure Performed Yes No -Type of Procedure Debridement -Clinical Debridement Subcutaneous -Tissue Removed Subcutaneous -Post Debridement (cm) - Length 1.7 -Post Debridement (cm) - Width 1.0 -Post Debridement (cm) - Depth 0.1 -Total Square (Post) (cm) 1.70 -Area of Debridement (cm) - Length 1.7 -Area of Debridement (cm) - Width 1.0 -Total Square (Area) (cm) 1.70 -Tunneling No No -Undermining/Tunneling No No -Circular Undermining No No -Wound/Ulcer Outcome Not Healed -Ulcer Cleansing Rinsed/ Not Cleansed Irrigated with Saline -Foul Odor after Cleansing No No -Bioengineered Tissue No No -Bleeding Controlled with NA -Offloading No -Debridement - Subq, 1st 20sq cm Yes #7 L Plantar Cluster -Time 13:37 -Correct Patient Yes -Correct Side, Site, Position Yes -Correct Procedure Yes -Procedure Performed Yes -Type of Procedure Debridement -Clinical Debridement Subcutaneous -Tissue Removed Subcutaneous -Post Debridement (cm) - Length 1.8 -Post Debridement (cm) - Width 2 -Post Debridement (cm) - Depth 0.3 -Total Square (Post) (cm) 3.6 -Area of Debridement (cm) - Length 1.8 -Area of Debridement (cm) - Width 2 -Total Square (Area) (cm) 3.6 -Tunneling No -Undermining/Tunneling No -Circular Undermining No -Wound/Ulcer Outcome Not Healed -Ulcer Cleansing Rinsed/ Irrigated with Saline -Foul Odor after Cleansing No -Bioengineered Tissue No -Bleeding Controlled with -Offloading -Type of Offloading Total Contact Cast (TCC) - Left ($) -Treatment Response -Debridement - Subq, 1st 20sq cm Yes Pain Scale: 0-10 Numeric Is Patient Pain Free? Yes Yes 06/08/20 06/15/20 06/22/20 13:49 14:55 08:50 Wound Center Nurse 2 #6 Coccyx Cluster -Time 08:50 -Correct Patient Yes -Correct Side, Site, Position Yes -Correct Procedure Yes -Procedure Performed Yes -Type of Procedure Debridement -Clinical Debridement Subcutaneous -Tissue Removed Subcutaneous -Post Debridement (cm) - Length 0.3 -Post Debridement (cm) - Width 0.2 -Post Debridement (cm) - Depth 0.1 -Total Square (Post) (cm) 0.06 -Area of Debridement (cm) - Length 0.3 -Area of Debridement (cm) - Width 0.2 -Total Square (Area) (cm) 0.06 -Tunneling No -Undermining/Tunneling No -Circular Undermining No -Wound/Ulcer Outcome Not Healed -Ulcer Cleansing Rinsed/ Irrigated with Saline -Foul Odor after Cleansing No -Bioengineered Tissue No -Bleeding Controlled with Pressure -Offloading No -Debridement - Subq, 1st 20sq cm Yes #7 L Plantar Cluster -Time 13:51 14:57 -Correct Patient Yes Yes -Correct Side, Site, Position Yes Yes -Correct Procedure Yes Yes -Procedure Performed Yes Yes -Type of Procedure Debridement Debridement -Clinical Debridement Subcutaneous Subcutaneous -Tissue Removed Subcutaneous Subcutaneous -Post Debridement (cm) - Length 3.8 0.7 -Post Debridement (cm) - Width 1 1 -Post Debridement (cm) - Depth 0.3 0.4 -Total Square (Post) (cm) 3.8 0.7 -Area of Debridement (cm) - Length 3.8 0.7 -Area of Debridement (cm) - Width 1 1 -Total Square (Area) (cm) 3.8 0.7 -Tunneling No No -Undermining/Tunneling No No -Circular Undermining No No -Wound/Ulcer Outcome Not Healed -Ulcer Cleansing Rinsed/ Rinsed/ Irrigated with Irrigated with Saline Saline -Foul Odor after Cleansing No No -Bioengineered Tissue No No -Bleeding Controlled with Pressure Pressure -Offloading Yes Yes -Type of Offloading Total Contact Total Contact Cast (TCC) - Cast (TCC) - Left ($) Left ($) -Treatment Response Procedure Procedure Tolerated Well Tolerated Well -Debridement - Subq, 1st 20sq cm Yes Yes Pain Scale: 0-10 Numeric Is Patient Pain Free? Yes Yes 06/22/20 09:22 Wound Center Nurse 2 #6 Coccyx Cluster -Time -Correct Patient -Correct Side, Site, Position -Correct Procedure -Procedure Performed -Type of Procedure -Clinical Debridement -Tissue Removed -Post Debridement (cm) - Length -Post Debridement (cm) - Width -Post Debridement (cm) - Depth -Total Square (Post) (cm) -Area of Debridement (cm) - Length -Area of Debridement (cm) - Width -Total Square (Area) (cm) -Tunneling -Undermining/Tunneling -Circular Undermining -Wound/Ulcer Outcome -Ulcer Cleansing -Foul Odor after Cleansing -Bioengineered Tissue -Bleeding Controlled with -Offloading -Debridement - Subq, 1st 20sq cm #7 L Plantar Cluster -Time 09:22 -Correct Patient Yes -Correct Side, Site, Position Yes -Correct Procedure Yes -Procedure Performed Yes -Type of Procedure Debridement -Clinical Debridement Subcutaneous -Tissue Removed Subcutaneous -Post Debridement (cm) - Length 0.6 -Post Debridement (cm) - Width 0.7 -Post Debridement (cm) - Depth 0.4 -Total Square (Post) (cm) 0.42 -Area of Debridement (cm) - Length 0.6 -Area of Debridement (cm) - Width 0.7 -Total Square (Area) (cm) 0.42 -Tunneling No -Undermining/Tunneling No -Circular Undermining No -Wound/Ulcer Outcome Not Healed -Ulcer Cleansing Rinsed/ Irrigated with Saline -Foul Odor after Cleansing No -Bioengineered Tissue No -Bleeding Controlled with Pressure -Offloading Yes -Type of Offloading Total Contact Cast (TCC) - Left ($) -Treatment Response Procedure Tolerated Well -Debridement - Subq, 1st 20sq cm Yes Pain Scale: 0-10 Numeric Is Patient Pain Free? Yes WC - Nurse 3 - General Ulcer D/C NN Start: 05/31/20 13:45 Freq: Status: Active Protocol: Activity Type Activity Date Activity User E-Sign Co-Sign Detail Recorded Client Recorded Date Recorded By Document 05/31/20 15:01 DL [id number] 05/31/20 15:02 DL Document 06/01/20 14:03 KR [id number] 06/01/20 14:04 KR Document 06/15/20 15:08 RB [id number] 06/15/20 15:10 RB 05/31/20 06/01/20 06/15/20 15:01 14:03 15:08 Wound Care Nurse 3 #6 Coccyx Cluster -Ulcer Cleansing Rinsed/ Irrigated with Saline -Foul Odor after Cleansing No -Primary Dressing Applied Mepilex Border -Mepilex Border 2 #7 L Plantar Cluster -Ulcer Cleansing Rinsed/ Irrigated with Saline -Foul Odor after Cleansing No -Primary Dressing Applied Promogran Promogran Lotus Matter Lotus Matter -Other Dressing TCC 3inch TCC PRIMARY LAYER APPLIED -Promogran Lotus Matter 1 1 Treatment Response Procedure Procedure Tolerated Well Tolerated Well Vital Signs Blood Pressure (90/60-120/80) 124/57 H Blood Pressure Mean (mm Hg) 79 Source Monitor Position Semi-Fowlers Blood Pressure Location Left Arm Pain Scale: 0-10 Numeric Is Patient Pain Free? Yes Yes Yes WC - Visit Discharge Discharge Condition Stable Stable Stable Ambulatory Status Ambulatory Ambulatory Ambulatory Transportation Private Auto Private Auto Private Auto Medication Reconcilliation completed & No provided to patient/care provider Clinical Summary of Care Provided Yes Notes: Mepilex border to abd also. Pt has appt with Dr Massey for abd ulcer. Wound debrided: plantar midfoot Laterality: Left Wound Grade/Stage: grade 2 Type of Debridement: Excisional debridement Anesthesia Used: 5% Lidocaine Gel Depth: in the subcutaneous layer Percentage of wound debrided: 100 Instrument Used: #15 blade Tissue Removed: fibrous, devitalized subcutaneous, biofilm, slough Severity: Fat Layer Exposed Amount of bleeding with debridement: Mild Bleeding Controlled with: Pressure Patient tolerated procedure well Assessment/Plan Active Problems (Last Reviewed 06/10/20 @ 21:[address] 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 Midfoot Charcot deformity, left. Diabetes with neuropathy. Malnutrition suspected. decubitus ulcer stage 2 coccyx area Plan: I reviewed and discussed her case. Excisional subcutaneous debridement was performed as noted in the clinical nursing panel. She is reassured no local signs of infection are noted. Lotus was applied. An additional total contact cast was applied after verbal consent according standard protocol in a rectus neutral well-padded position. She tolerated this well. The purpose indication and anticipated healing time and management reviewed. Updated lab work was ordered for follow-up of her nonhealing wound and prior infection status. She does not have leukocytosis or elevation of her ESR C-reactive protein. To continue proper glycemic control. A nutrition referral was recommended and provided previously for evaluation and management of her diabetes taking into consideration her prior gastric bypass restrictions and also her lifestyle changes. She continues alejandro supplementation. To follow-up with the wound healing center in 1 week or call sooner if she has any questions or concerns or development of local or systemic infection. I answered all of her questions. She has significant delays in healing and ulcers to multiple other sites including her abdomen (recently healed) and now buttock. She is seeing other wound care center providers for her nonpodiatric wound sites. Note: [employer] speech recognition home specialist software was used to create portions of this document. Sound-alike and misspelled words, as well as other home specialist errors may be contained in the documentation.
== END 2020-06-26 23:59 ==
LOC: WC 10:00
PROVIDERS: PCP Family Medicine; Referring Provider Podiatrist; Visit Provider Podiatrist
DX: E11.621 Type 2 diabetes mellitus with foot ulcer (principal); L97.422 Non-pressure chronic ulcer of left heel and midfoot with fat layer exposed; L89.152 Pressure ulcer of sacral region, stage 2; M14.672 Charcot's joint, left ankle and foot; E11.42 Type 2 diabetes mellitus with diabetic polyneuropathy; I25.10 Atherosclerotic heart disease of native coronary artery without angina pectoris; Z79.82 Long term (current) use of aspirin; Z79.4 Long term (current) use of insulin; Z79.899 Other long term (current) drug therapy; Z98.84 Bariatric surgery status
CPT/HCPCS: 11042; 29445; 36415; 85025; 85652; 86140; 99212; 99213; G0463

== ENCOUNTER → 2020-07-18 16:36 | Outpatient (CLI) | payer MEDICARE, OTHER, SELFPAY ==
[2020-07-18 18:05] LABS: Absolute Lymphocyte Count 1.92 X10^3/uL (0.83-4.51); Absolute Neutrophil Count 4.4 X10^3/uL (2.0-7.7); Basophil# 0.03 X10^3/uL; Basophil% 0.4 % (0-1); Eosinophil# 0.15 X10^3/uL; Eosinophils% 2.1 % (0-5); Hematocrit 40.9 % (37-47); Hemoglobin 13.1 g/dL (12.0-15.0); Lymphocyte # 1.92 X10^3/ul (4.0); Lymphocyte % 27.1 % (19-41); Mean Corpuscular Hgb 27.8 pg (27.0-32.0); Mean Corpuscular Volume 86.7 fL (81-99); Mean Platelet Vol. 9.8 fl (6.2-12.0); Monocyte# 0.52 X10^3/uL; Monocyte% 7.3 % (0-10); NRBC Flagged by Analyzer 0 % (0-5); Neutrophil # 4.43 X10^3/uL (2.7-7.7); Neutrophil % 62.7 % (47-70); Platelet Count 227 K/mm3 (150-450); RBC Distribution Width SD 53.7 fl (35.1-43.9); Red Blood Count 4.72 M/mm3 (4.2-5.4); White Blood Count 7.1 K/mm3 (4.4-11.0)
[2020-07-18 18:21] LABS: Erythrocyte Sedimentation Rate 20 mm/hr (0-30)
[2020-07-18 19:36] LABS: ALB/GLOB Ratio 0.8 RATIO (0.9-2.4); AST(SGOT) 26 U/L (15-37); Alanine Aminotransfer ALT/SGPT 38 U/L (13-56); Albumin, Serum 3.3 g/dL (3.2-5.0); Alkaline Phosphatase 97 U/L (45-117); Anion Gap 7 (5-15); BUN 35 mg/dL (7-18); BUN/Creat Ratio 32.1 RATIO (10-20); CRP < 2.90 mg/L (0.0-3.0); Chloride 109 mmol/L (98-107); Creatinine, Serum 1.09 mg/dL (0.55-1.02); EST Glomerular Filtration Rate 52 mL/min (>60); Est Glom Filt Rate - Afr Amer 63 mL/min (>60); Globulin 3.9 g/dL (2.2-4.2); Glucose 68 mg/dL (74-106); Protein, Total 7.2 g/dL (6.4-8.2); Sodium Level 138 mmol/L (136-145); Thyroid Stim Hormone (TSH) 1.52 uIU/mL (0.358-3.74)
[2020-07-19 08:44] LABS: PTHIN 40.1 pg/mL (18.4-80.1)
== END ==
PROVIDERS: PCP Family Medicine; Referring Provider Family Medicine; Visit Provider Family Medicine
DX: E11.621 Type 2 diabetes mellitus with foot ulcer (principal); L97.509 Non-pressure chronic ulcer of other part of unspecified foot with unspecified severity; E11.40 Type 2 diabetes mellitus with diabetic neuropathy, unspecified; E03.9 Hypothyroidism, unspecified
CPT/HCPCS: 36415; 80053; 83970; 84443; 85025; 85652; 86140

== ENCOUNTER 2020-07-20 11:15 | Outpatient (RCR) | payer MEDICARE, OTHER, SELFPAY ==
[2020-06-27 00:29] VITALS: BP 148/76; PULSE 71; RESP 18; TEMP 36
[2020-06-29 11:10] VITALS: BP 122/70; PULSE 68; TEMP 36.1
--- NOTE | 2020-06-29 11:24 | PCM.WC.PN ---
(1) Debility Status: Chronic Code(s): R53.81 - Other malaise (2) Decubitus ulcer of sacral region, stage 2 Status: Acute Code(s): L89.152 - Pressure ulcer of sacral region, stage 2 (3) Charcot's joint of left foot Status: Chronic Code(s): M14.672 - Charcot's joint, left ankle and foot (4) Diabetes mellitus type 2 in obese Status: Chronic Code(s): E11.69 - Type 2 diabetes mellitus with other specified complication; E66.9 - Obesity, unspecified Type of Wound Date of Service: 06/29/20 Chief Complaint: Left foot History of Wound: This is 75-year-old female with diabetic neuropathy history of Charcot left foot with rocker-bottom deformity, coronary artery disease and other comorbidities has a recurrent ulcer. She denies fever, chill, nausea, vomiting. She had a recent incision and drainage for gas infection of the left foot with serial debridements and wound care and delayed closure with application of advanced wound healing product in the operating room. She has been doing well and is stable. She is amendable to proceed with a total contact cast again today. She has other ulcers at this time also. She has developed pressure ulcers on her coccyx area from sitting diagnosed with stage II. Progress of Wound: Coccyx ulcers are resolved patient is discharged from wound center for the pressure ulcers - Physical Exam Vital Signs Temp Pulse Resp BP 96.8 F L 71 18 148/76 H 06/27/20 00:29 06/27/20 00:29 06/27/20 00:29 06/27/20 00:29 General: Oriented x3, Cooperative, Well developed HEENT: Atraumatic, PERRLA Oral: Moist Mucosa Neck: Supple, No JVD Lungs: Clear to auscultation, Normal air movement Cardiovascular: Regular rate, Regular Rhythm Abdomen: Bowel Sounds Present, Soft, Non Tender, No Hepato-splenomegaly, - - Pressure ulcer coccyx area stage II resolved Extremities: No clubbing, No edema Wound Measurements and Assessment WC - Nurse 2 - General Ulcer CM Notes Start: 06/29/20 11:10 Freq: Status: Active Protocol: Activity Type Activity Date Activity User E-Sign Co-Sign Detail Recorded Client Recorded Date Recorded By Document 06/29/20 11:13 MW [id number] 06/29/20 11:19 MW 06/29/20 11:13 Wound Center Nurse 2 [Procedure/Treatment] #6 Coccyx Cluster -Time 11:18 -Correct Patient Yes -Correct Side, Site, Position Yes -Correct Procedure Yes -Procedure Performed No -Post Debridement (cm) - Length 0 -Post Debridement (cm) - Width 0 -Post Debridement (cm) - Depth 0 -Total Square (Post) (cm) 0 -Wound/Ulcer Outcome Healed- Epithelialized [See Physician Procedure note for Specifics] Musculoskeletal: No Tenderness to Palpation of Joints or Extremities Lymphatic: No Cervical, Supraclavicular, or Inguinal Adenopathy Neurological: Cranial nerves II-XII grossly intact, Neuro grossly intact Psych/Mental Status: Normal Affect, Appropriate Debridement Note Post-Debridement Measurements/Treatment WC - Nurse 2 - General Ulcer CM Notes Start: 06/29/20 11:10 Freq: Status: Active Protocol: Activity Type Activity Date Activity User E-Sign Co-Sign Detail Recorded Client Recorded Date Recorded By Document 06/29/20 11:13 MW [id number] 06/29/20 11:19 MW 06/29/20 11:13 Wound Center Nurse 2 #6 Coccyx Cluster -Time 11:18 -Correct Patient Yes -Correct Side, Site, Position Yes -Correct Procedure Yes -Procedure Performed No -Post Debridement (cm) - Length 0 -Post Debridement (cm) - Width 0 -Post Debridement (cm) - Depth 0 -Total Square (Post) (cm) 0 -Wound/Ulcer Outcome Healed- Epithelialized Wound debrided: Coccyx area Wound Grade/Stage: Stage II No debridement was completed today Assessment/Plan Active Problems (Last Reviewed 06/10/20 @ 21:[address] Judson Massey MD) Decubitus ulcer of sacral region, stage 2 (Acute) Debility (Chronic) Diabetes mellitus type 2 in obese (Chronic) Charcot's joint of left foot (Chronic) Assessment: left foot plantar ulcer, britt grade 1, no infection. Midfoot Charcot deformity, left. Diabetes with neuropathy. Malnutrition suspected. decubitus ulcer stage 2 coccyx area resolved Plan: Discharge from the wound center for the coccyx ulcer stage II decubitus ulcer is resolved
[2020-06-29 12:04] VITALS: BP 122/72
--- NOTE | 2020-06-29 12:12 | PCM.WC.PN ---
(1) Charcot's joint of left foot Status: Chronic Code(s): M14.672 - Charcot's joint, left ankle and foot (2) Type 2 diabetes mellitus with diabetic polyneuropathy Status: Chronic Code(s): E11.42 - Type 2 diabetes mellitus with diabetic polyneuropathy (3) 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 Code(s): L97.522 - Non-pressure chronic ulcer of other part of left foot with fat layer exposed Comment: Recurrent Type of Wound Date of Service: 06/29/20 Chief Complaint: Left foot History of Wound: This is 75-year-old female with diabetic neuropathy history of Charcot left foot with rocker-bottom deformity, coronary artery disease and other comorbidities has a recurrent ulcer. She denies fever, chill, nausea, vomiting. She had a prior incision and drainage for gas infection of the left foot with serial debridements and wound care and delayed closure with application of advanced wound healing product in the operating room. She has been doing well and is stable. She is amendable to proceed with a total contact cast again today. Her other ulcers have healed. Progress of Wound: Improving foot - Physical Exam Vital Signs Temp Pulse Resp BP 97.0 F L 68 18 122/72 H 06/29/20 11:10 06/29/20 11:10 06/27/20 00:29 06/29/20 12:04 General: Alert, Oriented x3, Cooperative, No apparent distress HEENT: Atraumatic Extremities: Diminished Peripheral Pulses, Edema - Decreased, - - Stable rocker-bottom foot deformities consistent with nonacute Charcot. Decreased ulcer palpation pain Skin: Ulcer/ Wound - No purulence, erythema, string, odor, infection. Granular ulcer base noted and reduction in size. Adjacent skin is atrophic and hairless Wound Measurements and Assessment WC - Nurse 1 - General Ulcer Measurement Start: 06/29/20 11:10 Freq: Status: Active Protocol: Activity Type Activity Date Activity User E-Sign Co-Sign Detail Recorded Client Recorded Date Recorded By Document 06/29/20 11:10 MALIA [id number] 06/29/20 11:32 MALIA 06/29/20 11:10 Wound Center Nurse 1 [Ulcer Assessment] #6 Coccyx Cluster -Current Size (cm) - Length 0.1 -Current Size (cm) - Width 0.1 -Current Size (cm) - Depth 0.1 -Total Square Cm 0.01 -Exudate Amt None Present -Wound Margin Distinct, Outline Attached -Granulation Amt Large (67-100%) -Granulation Quality Pale -Necrosis Amt None Present (0 %) -Texture (Shannon-wound Skin Appearance) Assessed, Scarring -Moisture (Shannon-wound Skin Appearance Assessed,Dry/ ) Scaly -Color (Shannon-wound Skin Appearance) No Abnormality, Assessed -Temperature (Shannon-wound Skin No Abnormality Appearance) (Pt Warm) -Tenderness on Palpation (Shannon-wound No Skin Appearance) -Ulcer Cleansing Rinsed/ Irrigated with Saline -Foul Odor after Cleansing No -Anesthetic Used 4% Lidocaine Solution #7 L Plantar Cluster -Combined with other wound No -Current Size (cm) - Length 0.4 -Current Size (cm) - Width 0.5 -Current Size (cm) - Depth 0.2 -Total Square Cm 0.20 -Photo Taken No -Epithelialization None Present -Tunneling No -Undermining/Tunneling No -Circular Undermining No -Exudate Amt Medium -Exudate Type Serosanguineous -Wound Margin Flat & Intact -Granulation Amt Small (1-33%) -Granulation Quality [place] -Slough/Fibrin Yes -Necrosis Amt Small (1-33%) -Necrotic Tissue Type Adherent Slough -Structure Exposed N/A -Texture (Shannon-wound Skin Appearance) Assessed, Localized Edema ,Scarring -Moisture (Shannon-wound Skin Appearance Assessed, ) Maceration -Color (Shannon-wound Skin Appearance) No Abnormality, Assessed -Temperature (Shannon-wound Skin No Abnormality Appearance) (Pt Warm) -Tenderness on Palpation (Shannon-wound Yes Skin Appearance) -Ulcer Cleansing soap and water -Foul Odor after Cleansing No -Anesthetic Used 4% Lidocaine Solution [Edema Assessment] -Lower Limb Edema Present No WC - Nurse 2 - General Ulcer CM Notes Start: 06/29/20 11:10 Freq: Status: Active Protocol: Activity Type Activity Date Activity User E-Sign Co-Sign Detail Recorded Client Recorded Date Recorded By Document 06/29/20 11:13 MW [id number] 06/29/20 11:19 MW Document 06/29/20 11:57 JF [id number] 06/29/20 12:00 02/03/21 02/03/21 11:13 11:57 Wound Center Nurse 2 [Procedure/Treatment] #6 Coccyx Cluster -Time 11:18 -Correct Patient Yes -Correct Side, Site, Position Yes -Correct Procedure Yes -Procedure Performed No -Post Debridement (cm) - Length 0 -Post Debridement (cm) - Width 0 -Post Debridement (cm) - Depth 0 -Total Square (Post) (cm) 0 -Wound/Ulcer Outcome Healed- Epithelialized #7 L Plantar Cluster -Time 11:57 -Correct Patient Yes -Correct Side, Site, Position Yes -Correct Procedure Yes -Procedure Performed Yes -Type of Procedure Debridement -Clinical Debridement Subcutaneous -Tissue Removed Subcutaneous -Post Debridement (cm) - Length 0.4 -Post Debridement (cm) - Width 0.5 -Post Debridement (cm) - Depth 0.2 -Total Square (Post) (cm) 0.20 -Area of Debridement (cm) - Length 0.4 -Area of Debridement (cm) - Width 0.5 -Total Square (Area) (cm) 0.20 -Tunneling No -Undermining/Tunneling No -Circular Undermining No -Ulcer Cleansing Rinsed/ Irrigated with Saline -Foul Odor after Cleansing No -Bioengineered Tissue No -Bleeding Controlled with Pressure -Offloading Yes -Type of Offloading Total Contact Cast (TCC) - Left ($) -Treatment Response Procedure Tolerated Well -Debridement - Subq, 1st 20sq cm Yes [See Physician Procedure note for Specifics] Pain Scale: 0-10 Numeric [Pain] -Is Patient Pain Free? Yes - Nurse 3 - General Ulcer D/C NN Start: 06/29/20 11:10 Freq: Status: Active Protocol: Activity Type Activity Date Activity User E-Sign Co-Sign Detail Recorded Client Recorded Date Recorded By Document 06/29/20 12:04 MANE [id number] 06/29/20 12:06 MANE 06/29/20 12:04 Wound Care Nurse 3 [Wound Dressing] #7 L Plantar Cluster -Other Dressing reyna then 3inch TCC primary layer applied [Post Procedure Tolerated] -Treatment Response Procedure Tolerated Well Vital Signs [Blood Pressure] -Blood Pressure (90/60-120/80) 122/72 H -Blood Pressure Mean (mm Hg) 88 -Source Monitor -Position Sitting -Blood Pressure Location Left Arm Pain Scale: 0-10 Numeric [Pain] -Is Patient Pain Free? Yes WC - Visit Discharge [Visit Discharge Information] -Discharge Condition Stable -Ambulatory Status Ambulatory -Transportation Private Auto -Medication Reconcilliation completed No & provided to patient/care provider -Clinical Summary of Care Provided Yes Musculoskeletal: Muscle Wasting Neurological: - - Lack of normal epicritic sensation is consistent with neuropathic status Psych/Mental Status: Normal Affect, Appropriate Debridement Note Post-Debridement Measurements/Treatment WC - Nurse 2 - General Ulcer CM Notes Start: 06/29/20 11:10 Freq: Status: Active Protocol: Activity Type Activity Date Activity User E-Sign Co-Sign Detail Recorded Client Recorded Date Recorded By Document 06/29/20 11:13 MW [id number] 06/29/20 11:19 MW Document 06/29/20 11:57 JF [id number] 06/29/20 12:00 JF 06/29/20 06/29/20 11:13 11:57 Wound Center Nurse 2 #6 Coccyx Cluster -Time 11:18 -Correct Patient Yes -Correct Side, Site, Position Yes -Correct Procedure Yes -Procedure Performed No -Post Debridement (cm) - Length 0 -Post Debridement (cm) - Width 0 -Post Debridement (cm) - Depth 0 -Total Square (Post) (cm) 0 -Wound/Ulcer Outcome Healed- Epithelialized #7 L Plantar Cluster -Time 11:57 -Correct Patient Yes -Correct Side, Site, Position Yes -Correct Procedure Yes -Procedure Performed Yes -Type of Procedure Debridement -Clinical Debridement Subcutaneous -Tissue Removed Subcutaneous -Post Debridement (cm) - Length 0.4 -Post Debridement (cm) - Width 0.5 -Post Debridement (cm) - Depth 0.2 -Total Square (Post) (cm) 0.20 -Area of Debridement (cm) - Length 0.4 -Area of Debridement (cm) - Width 0.5 -Total Square (Area) (cm) 0.20 -Tunneling No -Undermining/Tunneling No -Circular Undermining No -Ulcer Cleansing Rinsed/ Irrigated with Saline -Foul Odor after Cleansing No -Bioengineered Tissue No -Bleeding Controlled with Pressure -Offloading Yes -Type of Offloading Total Contact Cast (TCC) - Left ($) -Treatment Response Procedure Tolerated Well -Debridement - Subq, 1st 20sq cm Yes Pain Scale: 0-10 Numeric Is Patient Pain Free? Yes - Nurse 3 - General Ulcer D/C NN Start: 06/29/20 11:10 Freq: Status: Active Protocol: Activity Type Activity Date Activity User E-Sign Co-Sign Detail Recorded Client Recorded Date Recorded By Document 06/29/20 12:04 RB [id number] 06/29/20 12:06 MANE 06/29/20 12:04 Wound Care Nurse 3 #7 L Plantar Cluster -Other Dressing reyna then 3inch TCC primary layer applied Treatment Response Procedure Tolerated Well Vital Signs Blood Pressure (90/60-120/80) 122/72 H Blood Pressure Mean (mm Hg) 88 Source Monitor Position Sitting Blood Pressure Location Left Arm Pain Scale: 0-10 Numeric Is Patient Pain Free? Yes WC - Visit Discharge Discharge Condition Stable Ambulatory Status Ambulatory Transportation Private Auto Medication Reconcilliation completed & No provided to patient/care provider Clinical Summary of Care Provided Yes Wound debrided: plantar foot Laterality: Left Wound Grade/Stage: grade 2 Type of Debridement: Excisional debridement Anesthesia Used: 5% Lidocaine Gel Depth: in the subcutaneous layer Percentage of wound debrided: 100 Instrument Used: #15 blade Tissue Removed: fibrous, devitalized subcutaneous, biofilm, slough Severity: Fat Layer Exposed Amount of bleeding with debridement: Mild Bleeding Controlled with: Pressure Patient tolerated procedure well Assessment/Plan Active Problems (Last Reviewed 06/10/20 @ 21:[address] 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 Midfoot Charcot deformity, left. Diabetes with neuropathy. Malnutrition suspected. decubitus ulcer stage 2 coccyx area resolved Plan: I reviewed and discussed her case. Excisional subcutaneous debridement was performed as noted in the clinical nursing panel. She is reassured no local signs of infection are noted. Reyna was applied. An additional total contact cast was applied after verbal consent according standard protocol in a rectus neutral well-padded position. She tolerated this well. The purpose indication and anticipated healing time and management reviewed. Updated lab work was ordered for follow-up of her nonhealing wound and prior infection status. She does not have leukocytosis or elevation of her ESR C-reactive protein. To continue proper glycemic control. A nutrition referral was recommended and provided previously for evaluation and management of her diabetes taking into consideration her prior gastric bypass restrictions and also her lifestyle changes. She continues alejandro supplementation. To follow-up with the wound healing center in 1 week or call sooner if she has any questions or concerns or development of local or systemic infection. I answered all of her questions. She has significant delays in healing and ulcers to multiple other sites including her abdomen (recently healed) and now buttock. She is seeing other wound care center providers for her nonpodiatric wound sites. Note: [employer] speech recognition key account director software was used to create portions of this document. Sound-alike and misspelled words, as well as other key account director errors may be contained in the documentation.
[2020-07-06 10:41] VITALS: BP 106/53; PULSE 67; RESP 20; TEMP 36.4
[2020-07-06 12:01] VITALS: BP 108/55
--- NOTE | 2020-07-06 21:54 | PCM.WC.PN ---
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 She denies fever, chill, nausea, vomiting. She had a prior incision and drainage for gas infection of the left foot with serial debridements and wound care and delayed closure with application of advanced wound healing product in the operating room. She has been doing well and is stable. She is amendable to proceed with a total contact cast again today. Her other ulcers have healed. She has reduced discomfort. Progress of Wound: Improving foot - Physical Exam Vital Signs Temp Pulse Resp BP 97.5 F L 67 20 H 108/55 L 07/06/20 10:41 07/06/20 10:41 07/06/20 10:41 07/06/20 12:01 General: Alert, Oriented x3, Cooperative, No apparent distress HEENT: Atraumatic Extremities: No cyanosis, Capillary Refill Less than 3 Seconds, No Calf Tenderness, Diminished Peripheral Pulses, Edema Skin: Ulcer/ Wound - No purulence, erythema, streaking, odor, infection., - Wound Measurements and Assessment WC - Nurse 1 - General Ulcer Measurement Start: 06/29/20 11:10 Freq: Status: Active Protocol: Activity Type Activity Date Activity User E-Sign Co-Sign Detail Recorded Client Recorded Date Recorded By Document 07/06/20 10:41 DL [id number] 07/06/20 10:54 DL 07/06/20 10:41 Wound Center Nurse 1 [Ulcer Assessment] #7 L Plantar Cluster -Current Size (cm) - Length 0.4 -Current Size (cm) - Width 0.3 -Current Size (cm) - Depth 0.3 -Total Square Cm 0.12 -Photo Taken No -Maximum Distance #2 (cm) 0.2 -Circular Undermining Yes -Exudate Amt Medium -Exudate Type Serosanguineous -Wound Margin Thickened -Granulation Amt Small (1-33%) -Granulation Quality [place] -Necrosis Amt Small (1-33%) -Necrotic Tissue Type Adherent Slough -Structure Exposed N/A -Texture (Shannon-wound Skin Appearance) Callus,Scarring -Moisture (Shannon-wound Skin Appearance Maceration ) -Color (Shannon-wound Skin Appearance) No Abnormality -Temperature (Shannon-wound Skin No Abnormality Appearance) (Pt Warm) -Tenderness on Palpation (Shannon-wound No Skin Appearance) -Ulcer Cleansing Wound Cleanser -Foul Odor after Cleansing No -Anesthetic Used 4% Lidocaine Solution AMINAH - Nurse 2 - General Ulcer CM Notes Start: 06/29/20 11:10 Freq: Status: Active Protocol: Activity Type Activity Date Activity User E-Sign Co-Sign Detail Recorded Client Recorded Date Recorded By Document 07/06/20 11:27 [email or web address] [id number] 07/06/20 11:31 [email or web address] 07/06/20 11:27 Wound Center Nurse 2 [Procedure/Treatment] -Time 11:28 -Correct Patient Yes -Correct Side, Site, Position Yes -Correct Procedure Yes -Procedure Performed Yes -Type of Procedure Debridement -Clinical Debridement Subcutaneous -Tissue Removed Subcutaneous -Post Debridement (cm) - Length 0.3 -Post Debridement (cm) - Width 0.4 -Post Debridement (cm) - Depth 0.2 -Total Square (Post) (cm) 0.12 -Area of Debridement (cm) - Length 0.3 -Area of Debridement (cm) - Width 0.4 -Total Square (Area) (cm) 0.12 -Tunneling No -Undermining/Tunneling No -Circular Undermining No -Wound/Ulcer Outcome Not Healed -Ulcer Cleansing Rinsed/ Irrigated with Saline -Foul Odor after Cleansing No -Bioengineered Tissue No -Bleeding Controlled with Pressure -Offloading Yes -Type of Offloading Total Contact Cast (TCC) - Left ($) -Treatment Response Procedure Tolerated Well -Debridement - Subq, 1st 20sq cm Yes [See Physician Procedure note for Specifics] AMINAH - Nurse 3 - General Ulcer D/C NN Start: 06/29/20 11:10 Freq: Status: Active Protocol: Activity Type Activity Date Activity User E-Sign Co-Sign Detail Recorded Client Recorded Date Recorded By Document 07/06/20 12:01 RB [id number] 07/06/20 12:01 RB 07/06/20 12:01 Wound Care Nurse 3 [Wound Dressing] #7 L Plantar Cluster -Other Dressing reyna then primary layer of TCC Vital Signs [Blood Pressure] -Blood Pressure (90/60-120/80) 108/55 L -Blood Pressure Mean (mm Hg) 72 -Source Monitor -Position Semi-Fowlers -Blood Pressure Location Left Arm Pain Scale: 0-10 Numeric [Pain] -Is Patient Pain Free? Yes WC - Visit Discharge [Visit Discharge Information] -Discharge Condition Stable -Ambulatory Status Ambulatory -Transportation Private Auto -Medication Reconcilliation completed No & provided to patient/care provider -Clinical Summary of Care Provided Yes Musculoskeletal: Muscle Wasting, - - Charcot foot .no acute Charcot rocker bottom foot. no bogginess or fluctuance. compartments soft Neurological: - - lack of normal epicritic sensation via light touch Psych/Mental Status: Normal Affect, Appropriate Debridement Note Post-Debridement Measurements/Treatment - Nurse 2 - General Ulcer CM Notes Start: 06/29/20 11:10 Freq: Status: Active Protocol: Activity Type Activity Date Activity User E-Sign Co-Sign Detail Recorded Client Recorded Date Recorded By Document 06/29/20 11:13 [id number] 06/29/20 11:19 Document 06/29/20 11:57 [id number] 06/29/20 12:00 Document 07/06/20 11:27 [id number] 07/06/20 11:31 06/29/20 06/29/20 07/06/20 11:13 11:57 11:27 Wound Center Nurse 2 #6 Coccyx Cluster -Time 11:18 -Correct Patient Yes -Correct Side, Site, Position Yes -Correct Procedure Yes -Procedure Performed No -Post Debridement (cm) - Length 0 -Post Debridement (cm) - Width 0 -Post Debridement (cm) - Depth 0 -Total Square (Post) (cm) 0 -Wound/Ulcer Outcome Healed- Epithelialized #7 L Plantar Cluster -Time 11:57 11:28 -Correct Patient Yes Yes -Correct Side, Site, Position Yes Yes -Correct Procedure Yes Yes -Procedure Performed Yes Yes -Type of Procedure Debridement Debridement -Clinical Debridement Subcutaneous Subcutaneous -Tissue Removed Subcutaneous Subcutaneous -Post Debridement (cm) - Length 0.4 0.3 -Post Debridement (cm) - Width 0.5 0.4 -Post Debridement (cm) - Depth 0.2 0.2 -Total Square (Post) (cm) 0.20 0.12 -Area of Debridement (cm) - Length 0.4 0.3 -Area of Debridement (cm) - Width 0.5 0.4 -Total Square (Area) (cm) 0.20 0.12 -Tunneling No No -Undermining/Tunneling No No -Circular Undermining No No -Wound/Ulcer Outcome Not Healed -Ulcer Cleansing Rinsed/ Rinsed/ Irrigated with Irrigated with Saline Saline -Foul Odor after Cleansing No No -Bioengineered Tissue No No -Bleeding Controlled with Pressure Pressure -Offloading Yes Yes -Type of Offloading Total Contact Total Contact Cast (TCC) - Cast (TCC) - Left ($) Left ($) -Treatment Response Procedure Procedure Tolerated Well Tolerated Well -Debridement - Subq, 1st 20sq cm Yes Yes Pain Scale: 0-10 Numeric Is Patient Pain Free? Yes - Nurse 3 - General Ulcer D/C NN Start: 06/29/20 11:10 Freq: Status: Active Protocol: Activity Type Activity Date Activity User E-Sign Co-Sign Detail Recorded Client Recorded Date Recorded By Document 06/29/20 12:04 RB [id number] 06/29/20 12:06 RB Document 07/06/20 12:01 RB [id number] 07/06/20 12:01 RB 06/29/20 07/06/20 12:04 12:01 Wound Care Nurse 3 #7 L Plantar Cluster -Other Dressing reyna then reyna then 3inch TCC primary layer primary layer of TCC applied Treatment Response Procedure Tolerated Well Vital Signs Blood Pressure (90/60-120/80) 122/72 H 108/55 L Blood Pressure Mean (mm Hg) 88 72 Source Monitor Monitor Position Sitting Semi-Fowlers Blood Pressure Location Left Arm Left Arm Pain Scale: 0-10 Numeric Is Patient Pain Free? Yes Yes WC - Visit Discharge Discharge Condition Stable Stable Ambulatory Status Ambulatory Ambulatory Transportation Private Auto Private Auto Medication Reconcilliation completed & No No provided to patient/care provider Clinical Summary of Care Provided Yes Yes Wound debrided: plantar foot Laterality: Left Wound Grade/Stage: grade 2 Type of Debridement: Excisional debridement Anesthesia Used: 5% Lidocaine Gel Depth: in the subcutaneous layer Percentage of wound debrided: 100 Instrument Used: #15 blade Tissue Removed: fibrous, devitalized subcutaneous, biofilm, slough Severity: Fat Layer Exposed Amount of bleeding with debridement: Mild Bleeding Controlled with: Pressure Patient tolerated procedure well Assessment/Plan Active Problems (Last Reviewed 06/10/20 @ 21:[address] 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 Midfoot Charcot deformity, left. Diabetes with neuropathy. Malnutrition suspected Plan: I reviewed and discussed her case. Excisional subcutaneous debridement was performed as noted in the clinical nursing panel. She is reassured no local signs of infection are noted. Reyna was applied. An additional total contact cast was applied after verbal consent according standard protocol in a rectus neutral well-padded position. She tolerated this well. The purpose indication and anticipated healing time and management reviewed. Updated lab work was ordered for follow-up of her nonhealing wound and prior infection status. She does not have leukocytosis or elevation of her ESR C-reactive protein. To continue proper glycemic control. A nutrition referral was recommended and provided previously for evaluation and management of her diabetes taking into consideration her prior gastric bypass restrictions and also her lifestyle changes. She continues alejanrdo supplementation. To follow-up with the wound healing center in 1 week or call sooner if she has any questions or concerns or development of local or systemic infection. I answered all of her questions. She has significant delays in healing. Note: [employer] speech recognition optical instrument assembler software was used to create portions of this document. Sound-alike and misspelled words, as well as other optical instrument assembler errors may be contained in the documentation.
[2020-07-13 11:01] VITALS: BP 149/46; PULSE 67; RESP 18; TEMP 36.5
[2020-07-13 11:26] VITALS: BP 150/60
--- NOTE | 2020-07-13 13:43 | PN.PCM_ITS ---
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 She denies fever, chill, nausea, vomiting. She had a prior incision and drainage for gas infection of the left foot with serial debridements and wound care and delayed closure with application of advanced wound healing product in the operating room. She has been doing well and is stable. She relates her leg swelling is decreased and her cast seem to lose towards end of the week. Progress of Wound: Improving - Physical Exam Vital Signs Temp Pulse Resp BP 97.7 F L 67 18 150/60 H 07/13/20 11:01 07/13/20 11:01 07/13/20 11:01 07/13/20 11:26 General: Alert, Oriented x3, Cooperative, No apparent distress Extremities: Capillary Refill Less than 3 Seconds, No Calf Tenderness, Diminished Peripheral Pulses, Edema - Decreased left limb edema noted with increased visualization of skin wrinkles Skin: Ulcer/ Wound - Peripheral epithelialization ulcer reduction in size noted. No erythema, purulence, odor, streaking, infection. The adjacent skin is thin and hairless and has some minimal peeling peripherally around the ulcer site. No bogginess or fluctuance on palpation Wound Measurements and Assessment WC - Nurse 1 - General Ulcer Measurement Start: 06/29/20 11:10 Freq: Status: Active Protocol: Activity Type Activity Date Activity User E-Sign Co-Sign Detail Recorded Client Recorded Date Recorded By Document 07/13/20 11:01 RB [id number] 07/13/20 11:03 RB 07/13/20 11:01 Wound Center Nurse 1 [Ulcer Assessment] #7 L Plantar Cluster -Combined with other wound No -Current Size (cm) - Length 0.2 -Current Size (cm) - Width 0.3 -Current Size (cm) - Depth 0.3 -Total Square Cm 0.06 -Tunneling No -Undermining/Tunneling No -Circular Undermining No -Exudate Amt Small -Exudate Type Serosanguineous -Wound Margin Thickened -Granulation Amt Medium (34-66%) -Granulation Quality [place] -Slough/Fibrin Yes -Necrosis Amt Small (1-33%) -Necrotic Tissue Type Adherent Slough -Structure Exposed N/A -Texture (Shannon-wound Skin Appearance) Callus -Moisture (Shannon-wound Skin Appearance Assessed ) -Color (Shannon-wound Skin Appearance) Assessed -Temperature (Shannon-wound Skin No Abnormality Appearance) (Pt Warm) -Tenderness on Palpation (Shannon-wound No Skin Appearance) -Ulcer Cleansing Wound Cleanser -Foul Odor after Cleansing No -Anesthetic Used 5% Lidocaine Gel WC - Nurse 2 - General Ulcer CM Notes Start: 06/29/20 11:10 Freq: Status: Active Protocol: Activity Type Activity Date Activity User E-Sign Co-Sign Detail Recorded Client Recorded Date Recorded By Document 07/13/20 12:51 PL [id number] 07/13/20 12:52 PL 07/13/20 12:51 Wound Center Nurse 2 [Procedure/Treatment] -Time 11:18 -Correct Patient Yes -Correct Side, Site, Position Yes -Correct Procedure Yes -Procedure Performed Yes -Type of Procedure Debridement -Clinical Debridement Subcutaneous -Tissue Removed Subcutaneous -Post Debridement (cm) - Length 0.3 -Post Debridement (cm) - Width 0.4 -Post Debridement (cm) - Depth 0.2 -Total Square (Post) (cm) 0.12 -Area of Debridement (cm) - Length 0.3 -Area of Debridement (cm) - Width 0.4 -Total Square (Area) (cm) 0.12 -Tunneling No -Undermining/Tunneling No -Circular Undermining No -Wound/Ulcer Outcome Not Healed -Ulcer Cleansing Rinsed/ Irrigated with Saline -Foul Odor after Cleansing No -Bioengineered Tissue No -Debridement - Subq, 1st 20sq cm Yes [See Physician Procedure note for Specifics] Pain Scale: 0-10 Numeric [Pain] -Is Patient Pain Free? Yes WC - Nurse 3 - General Ulcer D/C NN Start: 06/29/20 11:10 Freq: Status: Active Protocol: Activity Type Activity Date Activity User E-Sign Co-Sign Detail Recorded Client Recorded Date Recorded By Document 07/13/20 11:26 RB [id number] 07/13/20 11:27 RB 07/13/20 11:26 Wound Care Nurse 3 [Wound Dressing] #7 L Plantar Cluster -Ulcer Cleansing Rinsed/ Irrigated with Saline -Primary Dressing Applied Aquacel AG 4x4 -Primary Dressing Covered/Secured Dry Gauze,Dry with Gauze & Roll Gauze,Secured with Tape -Aquacel AG 4x4 1 Vital Signs [Blood Pressure] -Blood Pressure (90/60-120/80) 150/60 H -Blood Pressure Mean (mm Hg) 90 -Source Monitor -Position Sitting -Blood Pressure Location Left Arm Pain Scale: 0-10 Numeric [Pain] -Is Patient Pain Free? Yes WC - Visit Discharge [Visit Discharge Information] -Discharge Condition Stable -Ambulatory Status Ambulatory -Transportation Private Auto -Medication Reconcilliation completed No & provided to patient/care provider -Clinical Summary of Care Provided Yes Musculoskeletal: No Tenderness to Palpation of Joints or Extremities, Muscle Wasting, - - Rocker-bottom Charcot foot noted with no gross instability, warmth, edema or erythema (chronic and stable) Neurological: - - Lack of epicritic sensation light touch is consistent with neuropathy status Psych/Mental Status: Normal Affect, Appropriate Debridement Note Post-Debridement Measurements/Treatment WC - Nurse 2 - General Ulcer CM Notes Start: 06/29/20 11:10 Freq: Status: Active Protocol: Activity Type Activity Date Activity User E-Sign Co-Sign Detail Recorded Client Recorded Date Recorded By Document 06/29/20 11:13 MW [id number] 06/29/20 11:19 MW Document 06/29/20 11:57 JF [id number] 06/29/20 12:00 JF Document 07/06/20 11:27 JF [id number] 07/06/20 11:31 JF Document 07/13/20 12:51 PL [id number] 07/13/20 12:52 PL 06/29/20 06/29/20 07/06/20 11:13 11:57 11:27 Wound Center Nurse 2 #6 Coccyx Cluster -Time 11:18 -Correct Patient Yes -Correct Side, Site, Position Yes -Correct Procedure Yes -Procedure Performed No -Post Debridement (cm) - Length 0 -Post Debridement (cm) - Width 0 -Post Debridement (cm) - Depth 0 -Total Square (Post) (cm) 0 -Wound/Ulcer Outcome Healed- Epithelialized #7 L Plantar Cluster -Time 11:57 11:28 -Correct Patient Yes Yes -Correct Side, Site, Position Yes Yes -Correct Procedure Yes Yes -Procedure Performed Yes Yes -Type of Procedure Debridement Debridement -Clinical Debridement Subcutaneous Subcutaneous -Tissue Removed Subcutaneous Subcutaneous -Post Debridement (cm) - Length 0.4 0.3 -Post Debridement (cm) - Width 0.5 0.4 -Post Debridement (cm) - Depth 0.2 0.2 -Total Square (Post) (cm) 0.20 0.12 -Area of Debridement (cm) - Length 0.4 0.3 -Area of Debridement (cm) - Width 0.5 0.4 -Total Square (Area) (cm) 0.20 0.12 -Tunneling No No -Undermining/Tunneling No No -Circular Undermining No No -Wound/Ulcer Outcome Not Healed -Ulcer Cleansing Rinsed/ Rinsed/ Irrigated with Irrigated with Saline Saline -Foul Odor after Cleansing No No -Bioengineered Tissue No No -Bleeding Controlled with Pressure Pressure -Offloading Yes Yes -Type of Offloading Total Contact Total Contact Cast (TCC) - Cast (TCC) - Left ($) Left ($) -Treatment Response Procedure Procedure Tolerated Well Tolerated Well -Debridement - Subq, 1st 20sq cm Yes Yes Pain Scale: 0-10 Numeric Is Patient Pain Free? Yes 07/13/20 12:51 Wound Center Nurse 2 #6 Coccyx Cluster -Time -Correct Patient -Correct Side, Site, Position -Correct Procedure -Procedure Performed -Post Debridement (cm) - Length -Post Debridement (cm) - Width -Post Debridement (cm) - Depth -Total Square (Post) (cm) -Wound/Ulcer Outcome #7 L Plantar Cluster -Time 11:18 -Correct Patient Yes -Correct Side, Site, Position Yes -Correct Procedure Yes -Procedure Performed Yes -Type of Procedure Debridement -Clinical Debridement Subcutaneous -Tissue Removed Subcutaneous -Post Debridement (cm) - Length 0.3 -Post Debridement (cm) - Width 0.4 -Post Debridement (cm) - Depth 0.2 -Total Square (Post) (cm) 0.12 -Area of Debridement (cm) - Length 0.3 -Area of Debridement (cm) - Width 0.4 -Total Square (Area) (cm) 0.12 -Tunneling No -Undermining/Tunneling No -Circular Undermining No -Wound/Ulcer Outcome Not Healed -Ulcer Cleansing Rinsed/ Irrigated with Saline -Foul Odor after Cleansing No -Bioengineered Tissue No -Bleeding Controlled with -Offloading -Type of Offloading -Treatment Response -Debridement - Subq, 1st 20sq cm Yes Pain Scale: 0-10 Numeric Is Patient Pain Free? Yes - Nurse 3 - General Ulcer D/C NN Start: 06/29/20 11:10 Freq: Status: Active Protocol: Activity Type Activity Date Activity User E-Sign Co-Sign Detail Recorded Client Recorded Date Recorded By Document 06/29/20 12:04 RB [id number] 06/29/20 12:06 RB Document 07/06/20 12:01 RB [id number] 07/06/20 12:01 RB Document 07/13/20 11:26 RB [id number] 07/13/20 11:27 RB 06/29/20 07/06/20 07/13/20 12:04 12:01 11:26 Wound Care Nurse 3 #7 L Plantar Cluster -Ulcer Cleansing Rinsed/ Irrigated with Saline -Primary Dressing Applied Aquacel AG 4x4 -Other Dressing reyna then reyna then 3inch TCC primary layer primary layer of TCC applied -Primary Dressing Covered/Secured with Dry Gauze,Dry Gauze & Roll Gauze,Secured with Tape -Aquacel AG 4x4 1 Treatment Response Procedure Tolerated Well Vital Signs Blood Pressure (90/60-120/80) 122/72 H 108/55 L 150/60 H Blood Pressure Mean (mm Hg) 88 72 90 Source Monitor Monitor Monitor Position Sitting Semi-Fowlers Sitting Blood Pressure Location Left Arm Left Arm Left Arm Pain Scale: 0-10 Numeric Is Patient Pain Free? Yes Yes Yes WC - Visit Discharge Discharge Condition Stable Stable Stable Ambulatory Status Ambulatory Ambulatory Ambulatory Transportation Private Auto Private Auto Private Auto Medication Reconcilliation completed & No No No provided to patient/care provider Clinical Summary of Care Provided Yes Yes Yes Wound debrided: plantar foot Laterality: Left Wound Grade/Stage: grade 2 Type of Debridement: Excisional debridement Anesthesia Used: 5% Lidocaine Gel Depth: in the subcutaneous layer Percentage of wound debrided: 100 Instrument Used: #15 blade Tissue Removed: fibrous, devitalized subcutaneous, biofilm, slough Severity: Fat Layer Exposed Amount of bleeding with debridement: Mild Bleeding Controlled with: Pressure Patient tolerated procedure well Assessment/Plan Active Problems (Last Reviewed 06/10/20 @ 21:[address] 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 Midfoot Ch arcot deformity, left. Diabetes with neuropathy. Malnutrition suspected Plan: I reviewed and discussed her case. Excisional subcutaneous debridement was performed as noted in the clinical nursing panel. She was reassured no local signs of infection are noted. Aquacel Ag was applied. She would like to using a break from total contact cast per week and I also recommend the adjacent skin peeling. I would like to change the dressing daily with Dakin wet-to-dry. An additional total contact cast will be considered next week. To offload with cam walker boot and reduce overall activity. Updated lab work was previously reviewed for her nonhealing wound and prior infection status. She did not have leukocytosis or elevation of her ESR C-reactive protein. This will be updated as needed. To continue proper glycemic control. A nutrition referral was recommended and provided previously for evaluation and management of her diabetes taking into consideration her prior gastric bypass restrictions and also her lifestyle changes. She continues alejandro supplementation. To follow-up with the wound healing center in 1 week or call sooner if she has any questions or concerns or development of local or systemic infection. I answered all of her questions. She has significant delays in healing. Note: [employer] speech recognition health unit coordinator software was used to create portions of this document. Sound-alike and misspelled words, as well as other health unit coordinator errors may be contained in the documentation.
[2020-07-20 11:21] VITALS: BP 126/60; PULSE 65; RESP 18; TEMP 36.3
[2020-07-20 11:55] VITALS: BP 128/60
--- NOTE | 2020-07-20 13:30 | PCM.WC.PN ---
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 She denies fever, chill, nausea, vomiting. She had a prior incision and drainage for gas infection of the left foot with serial debridements and wound care and delayed closure with application of advanced wound healing product in the operating room. She has been doing well and is stable. She took a break from a total contact cast last week relates she thinks her ulcer site got irritated. Progress of Wound: Stable without infection, increased size noted - Physical Exam Vital Signs Temp Pulse Resp BP 97.3 F L 65 18 128/60 H 07/20/20 11:21 07/20/20 11:21 07/20/20 11:21 07/20/20 11:55 General: Alert, Oriented x3, Cooperative, No apparent distress HEENT: Atraumatic Extremities: No cyanosis, Capillary Refill Less than 3 Seconds, No Calf Tenderness, Diminished Peripheral Pulses, Edema - Mild, - - Rocker-bottom Charcot foot, nonacute Skin: Ulcer/ Wound - No purulence, erythema, streaking, odor, infection. No deep tissue exposure or necrosis noted. Increased size noted. Adjacent skin is hairless and atrophic Wound Measurements and Assessment WC - Nurse 1 - General Ulcer Measurement Start: 06/29/20 11:10 Freq: Status: Active Protocol: Activity Type Activity Date Activity User E-Sign Co-Sign Detail Recorded Client Recorded Date Recorded By Document 07/20/20 11:21 DL [id number] 07/20/20 11:24 DL 07/20/20 11:21 Wound Center Nurse 1 [Ulcer Assessment] #7 L Plantar Cluster -Current Size (cm) - Length 0.4 -Current Size (cm) - Width 0.3 -Current Size (cm) - Depth 0.3 -Total Square Cm 0.12 -Photo Taken No -Maximum Distance #2 (cm) 0.2 -Circular Undermining Yes -Exudate Amt Small -Exudate Type Serosanguineous -Wound Margin Thickened -Granulation Amt Small (1-33%) -Granulation Quality Red -Necrosis Amt Small (1-33%) -Necrotic Tissue Type Adherent Slough -Structure Exposed N/A -Texture (Shannon-wound Skin Appearance) Callus,Scarring -Moisture (Shannon-wound Skin Appearance Maceration ) -Color (Shannon-wound Skin Appearance) No Abnormality -Temperature (Shannon-wound Skin No Abnormality Appearance) (Pt Warm) -Tenderness on Palpation (Shannon-wound No Skin Appearance) -Ulcer Cleansing Wound Cleanser -Foul Odor after Cleansing No -Anesthetic Used 4% Lidocaine Solution WC - Nurse 2 - General Ulcer CM Notes Start: 06/29/20 11:10 Freq: Status: Active Protocol: Activity Type Activity Date Activity User E-Sign Co-Sign Detail Recorded Client Recorded Date Recorded By Document 07/20/20 11:45 [email or web address] [id number] 07/20/20 11:52 [email or web address] 07/20/20 11:45 Wound Center Nurse 2 [Procedure/Treatment] -Time 11:49 -Correct Patient Yes -Correct Side, Site, Position Yes -Correct Procedure Yes -Procedure Performed Yes -Type of Procedure Debridement -Clinical Debridement Subcutaneous -Tissue Removed Subcutaneous -Post Debridement (cm) - Length 0.6 -Post Debridement (cm) - Width 1.5 -Post Debridement (cm) - Depth 0.2 -Total Square (Post) (cm) 0.90 -Area of Debridement (cm) - Length 0.6 -Area of Debridement (cm) - Width 1.5 -Total Square (Area) (cm) 0.90 -Tunneling No -Undermining/Tunneling No -Circular Undermining No -Wound/Ulcer Outcome Not Healed -Ulcer Cleansing Rinsed/ Irrigated with Saline -Foul Odor after Cleansing No -Bioengineered Tissue No -Bleeding Controlled with Pressure -Offloading Yes -Type of Offloading Total Contact Cast (TCC) - Left ($) -Treatment Response Procedure Tolerated Well -Debridement - Subq, 1st 20sq cm Yes [See Physician Procedure note for Specifics] Pain Scale: 0-10 Numeric [Pain] -Is Patient Pain Free? Yes WC - Nurse 3 - General Ulcer D/C NN Start: 06/29/20 11:10 Freq: Status: Active Protocol: Activity Type Activity Date Activity User E-Sign Co-Sign Detail Recorded Client Recorded Date Recorded By Document 07/20/20 11:55 RB [id number] 07/20/20 11:57 RB 07/20/20 11:55 Wound Care Nurse 3 [Wound Dressing] #7 L Plantar Cluster -Ulcer Cleansing Rinsed/ Irrigated with Saline -Primary Dressing Applied Promogran Reyna Matter -Other Dressing primary layer of 3 in TCC applied -Promogran Reyna Matter 1 [Post Procedure Tolerated] -Treatment Response Procedure Tolerated Well Vital Signs [Blood Pressure] -Blood Pressure (90/60-120/80) 128/60 H -Blood Pressure Mean (mm Hg) 82 -Source Monitor -Position Semi-Fowlers -Blood Pressure Location Left Arm Pain Scale: 0-10 Numeric [Pain] -Is Patient Pain Free? Yes - Visit Discharge [Visit Discharge Information] -Discharge Condition Stable -Ambulatory Status Ambulatory -Transportation Private Auto -Medication Reconcilliation completed No & provided to patient/care provider -Clinical Summary of Care Provided Yes Musculoskeletal: No Tenderness to Palpation of Joints or Extremities, Muscle Wasting Neurological: - - Lack of normal epicritic sensation to light touch is consistent with neuropathic status Psych/Mental Status: Normal Affect, Appropriate Debridement Note Post-Debridement Measurements/Treatment WC - Nurse 2 - General Ulcer CM Notes Start: 06/29/20 11:10 Freq: Status: Active Protocol: Activity Type Activity Date Activity User E-Sign Co-Sign Detail Recorded Client Recorded Date Recorded By Document 06/29/20 11:13 MW [id number] 06/29/20 11:19 MW Document 06/29/20 11:57 JF [id number] 06/29/20 12:00 JF Document 07/06/20 11:27 JF [id number] 07/06/20 11:31 JF Document 07/13/20 12:51 PL [id number] 07/13/20 12:52 PL Document 07/20/20 11:45 JF [id number] 07/20/20 11:52 JF 06/29/20 06/29/20 07/06/20 11:13 11:57 11:27 Wound Center Nurse 2 #6 Coccyx Cluster -Time 11:18 -Correct Patient Yes -Correct Side, Site, Position Yes -Correct Procedure Yes -Procedure Performed No -Post Debridement (cm) - Length 0 -Post Debridement (cm) - Width 0 -Post Debridement (cm) - Depth 0 -Total Square (Post) (cm) 0 -Wound/Ulcer Outcome Healed- Epithelialized #7 L Plantar Cluster -Time 11:57 11:28 -Correct Patient Yes Yes -Correct Side, Site, Position Yes Yes -Correct Procedure Yes Yes -Procedure Performed Yes Yes -Type of Procedure Debridement Debridement -Clinical Debridement Subcutaneous Subcutaneous -Tissue Removed Subcutaneous Subcutaneous -Post Debridement (cm) - Length 0.4 0.3 -Post Debridement (cm) - Width 0.5 0.4 -Post Debridement (cm) - Depth 0.2 0.2 -Total Square (Post) (cm) 0.20 0.12 -Area of Debridement (cm) - Length 0.4 0.3 -Area of Debridement (cm) - Width 0.5 0.4 -Total Square (Area) (cm) 0.20 0.12 -Tunneling No No -Undermining/Tunneling No No -Circular Undermining No No -Wound/Ulcer Outcome Not Healed -Ulcer Cleansing Rinsed/ Rinsed/ Irrigated with Irrigated with Saline Saline -Foul Odor after Cleansing No No -Bioengineered Tissue No No -Bleeding Controlled with Pressure Pressure -Offloading Yes Yes -Type of Offloading Total Contact Total Contact Cast (TCC) - Cast (TCC) - Left ($) Left ($) -Treatment Response Procedure Procedure Tolerated Well Tolerated Well -Debridement - Subq, 1st 20sq cm Yes Yes Pain Scale: 0-10 Numeric Is Patient Pain Free? Yes 07/13/20 07/20/20 12:51 11:45 Wound Center Nurse 2 #6 Coccyx Cluster -Time -Correct Patient -Correct Side, Site, Position -Correct Procedure -Procedure Performed -Post Debridement (cm) - Length -Post Debridement (cm) - Width -Post Debridement (cm) - Depth -Total Square (Post) (cm) -Wound/Ulcer Outcome #7 L Plantar Cluster -Time 11:18 11:49 -Correct Patient Yes Yes -Correct Side, Site, Position Yes Yes -Correct Procedure Yes Yes -Procedure Performed Yes Yes -Type of Procedure Debridement Debridement -Clinical Debridement Subcutaneous Subcutaneous -Tissue Removed Subcutaneous Subcutaneous -Post Debridement (cm) - Length 0.3 0.6 -Post Debridement (cm) - Width 0.4 1.5 -Post Debridement (cm) - Depth 0.2 0.2 -Total Square (Post) (cm) 0.12 0.90 -Area of Debridement (cm) - Length 0.3 0.6 -Area of Debridement (cm) - Width 0.4 1.5 -Total Square (Area) (cm) 0.12 0.90 -Tunneling No No -Undermining/Tunneling No No -Circular Undermining No No -Wound/Ulcer Outcome Not Healed Not Healed -Ulcer Cleansing Rinsed/ Rinsed/ Irrigated with Irrigated with Saline Saline -Foul Odor after Cleansing No No -Bioengineered Tissue No No -Bleeding Controlled with Pressure -Offloading Yes -Type of Offloading Total Contact Cast (TCC) - Left ($) -Treatment Response Procedure Tolerated Well -Debridement - Subq, 1st 20sq cm Yes Yes Pain Scale: 0-10 Numeric Is Patient Pain Free? Yes Yes - Nurse 3 - General Ulcer D/C NN Start: 06/29/20 11:10 Freq: Status: Active Protocol: Activity Type Activity Date Activity User E-Sign Co-Sign Detail Recorded Client Recorded Date Recorded By Document 06/29/20 12:04 RB [id number] 06/29/20 12:06 RB Document 07/06/20 12:01 RB [id number] 07/06/20 12:01 RB Document 07/13/20 11:26 RB [id number] 07/13/20 11:27 RB Document 07/20/20 11:55 RB [id number] 07/20/20 11:57 RB 06/29/20 07/06/20 07/13/20 12:04 12:01 11:26 Wound Care Nurse 3 #7 L Plantar Cluster -Ulcer Cleansing Rinsed/ Irrigated with Saline -Primary Dressing Applied Aquacel AG 4x4 -Other Dressing reyna then reyna then 3inch TCC primary layer primary layer of TCC applied -Primary Dressing Covered/Secured with Dry Gauze,Dry Gauze & Roll Gauze,Secured with Tape -Aquacel AG 4x4 1 -Promogran Reyna Matter Treatment Response Procedure Tolerated Well Vital Signs Blood Pressure (90/60-120/80) 122/72 H 108/55 L 150/60 H Blood Pressure Mean (mm Hg) 88 72 90 Source Monitor Monitor Monitor Position Sitting Semi-Fowlers Sitting Blood Pressure Location Left Arm Left Arm Left Arm Pain Scale: 0-10 Numeric Is Patient Pain Free? Yes Yes Yes WC - Visit Discharge Discharge Condition Stable Stable Stable Ambulatory Status Ambulatory Ambulatory Ambulatory Transportation Private Auto Private Auto Private Auto Medication Reconcilliation completed & No No No provided to patient/care provider Clinical Summary of Care Provided Yes Yes Yes 07/20/20 11:55 Wound Care Nurse 3 #7 L Plantar Cluster -Ulcer Cleansing Rinsed/ Irrigated with Saline -Primary Dressing Applied Promogran Reyna Matter -Other Dressing primary layer of 3 in TCC applied -Primary Dressing Covered/Secured with -Aquacel AG 4x4 -Promogran Reyna Matter 1 Treatment Response Procedure Tolerated Well Vital Signs Blood Pressure (90/60-120/80) 128/60 H Blood Pressure Mean (mm Hg) 82 Source Monitor Position Semi-Fowlers Blood Pressure Location Left Arm Pain Scale: 0-10 Numeric Is Patient Pain Free? Yes WC - Visit Discharge Discharge Condition Stable Ambulatory Status Ambulatory Transportation Private Auto Medication Reconcilliation completed & No provided to patient/care provider Clinical Summary of Care Provided Yes Wound debrided: plantar foot Laterality: Left Wound Grade/Stage: grade 2 Type of Debridement: Excisional debridement Anesthesia Used: 5% Lidocaine Gel Depth: in the subcutaneous layer Percentage of wound debrided: 100 Instrument Used: #15 blade Tissue Removed: fibrous, devitalized subcutaneous, biofilm, slough Severity: Fat Layer Exposed Amount of bleeding with debridement: Mild Bleeding Controlled with: Pressure Patient tolerated procedure well Assessment/Plan Active Problems (Last Reviewed 06/10/20 @ 21:[address] 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 Midfoot Charcot deformity, left. Diabetes with neuropathy. Malnutrition suspected Plan: I reviewed and discussed her case. Excisional subcutaneous debridement was performed as noted in the clinical nursing panel. She was reassured no local signs of infection are noted. Reyna was applied. I recommend application of total contact cast and she is amendable to proceed. Verbal consent was obtained and is applied according to standard protocol in a well-padded neutral position. She tolerated this well. She was advised to keep this clean, dry, and intact until follow-up next week. To offload with cam walker boot and reduce overall activity. Updated lab work was previously reviewed for her nonhealing wound and prior infection status. She did not have leukocytosis or elevation of her ESR C-reactive protein. This will be updated as needed. To continue proper glycemic control. A nutrition referral was recommended and provided previously for evaluation and management of her diabetes taking into consideration her prior gastric bypass restrictions and also her lifestyle changes. She continues alejandro supplementation. To follow-up with the wound healing center in 1 week or call sooner if she has any questions or concerns or development of local or systemic infection. I answered all of her questions. She has significant delays in healing. Note: [employer] speech recognition computer tape librarian software was used to create portions of this document. Sound-alike and misspelled words, as well as other computer tape librarian errors may be contained in the documentation.
== END 2020-07-24 23:59 ==
LOC: WC 11:15
PROVIDERS: PCP Family Medicine; Referring Provider Podiatrist; Visit Provider Podiatrist
DX: E11.621 Type 2 diabetes mellitus with foot ulcer (principal); L97.422 Non-pressure chronic ulcer of left heel and midfoot with fat layer exposed; E11.610 Type 2 diabetes mellitus with diabetic neuropathic arthropathy; E11.42 Type 2 diabetes mellitus with diabetic polyneuropathy; I25.10 Atherosclerotic heart disease of native coronary artery without angina pectoris; E66.9 Obesity, unspecified; Z79.02 Long term (current) use of antithrombotics/antiplatelets; Z79.82 Long term (current) use of aspirin; Z79.4 Long term (current) use of insulin; Z79.891 Long term (current) use of opiate analgesic; Z79.899 Other long term (current) drug therapy; Z98.84 Bariatric surgery status
CPT/HCPCS: 11042; 29445; 99212; G0463

== ENCOUNTER → 2020-08-17 11:13 | Outpatient (CLI) | payer MEDICARE, OTHER, SELFPAY ==
--- NOTE | 2020-08-17 11:17 | RAD_ITS ---
STUDY: X-RAY - LUMBOSACRAL SPINE REASON FOR EXAM: Female, 75 years old. PAIN/FALL TECHNIQUE: 6 view(s) of the lumbosacral spine were obtained including oblique views and flexion and extension views.. COMPARISON: Comparison is made with prior study dated 05/10/2020. FINDINGS: There is an exaggerated lumbar lordosis. There is no substantial scoliosis. There is normal alignment of the vertebrae. There is multilevel endplate spondylosis of the lumbar vertebrae. Normal disc space heights. Normal bilateral sacral ala, sacroiliac joints, and visualized sacrum. There is atherosclerotic calcification of the abdominal aorta without a demonstrated aneurysm. RAD/L/S Spine Comp/w Bending Views IMPRESSION: Degenerative changes of the spine, as detailed above. Electronically Signed: Delvin Morton MD at 9:08 EDT , Service support ,
== END ==
PROVIDERS: PCP Family Medicine; Referring Provider Family Medicine; Visit Provider Family Medicine
DX: M54.5 Low back pain (principal)
CPT/HCPCS: 72114

== ENCOUNTER 2020-08-17 13:15 | Outpatient (RCR) | payer MEDICARE, OTHER, SELFPAY ==
[2020-07-25 00:25] VITALS: BP 128/60; PULSE 65; RESP 18; TEMP 36.3
[2020-07-29 11:57] VITALS: BP 112/42; PULSE 68; RESP 18; TEMP 36.5
--- NOTE | 2020-07-29 13:11 | PCM.WC.PN ---
(1) Non-pressure chronic ulcer of other part of left foot with necrosis of muscle Status: Chronic Code(s): L97.523 - Non-pressure chronic ulcer of other part of left foot with necrosis of muscle (2) Diabetes mellitus type 2 in obese Status: Chronic Code(s): E11.69 - Type 2 diabetes mellitus with other specified complication; E66.9 - Obesity, unspecified (3) Nonhealing surgical wound Status: Chronic Qualifiers: Encounter type: subsequent encounter Qualified Code(s): T81.89XD - Other complications of procedures, not elsewhere classified, subsequent encounter Code(s): T81.89XA - Other complications of procedures, not elsewhere classified, initial encounter (4) Ulcer of right foot with fat layer exposed Status: Chronic Code(s): L97.512 - Non-pressure chronic ulcer of other part of right foot with fat layer exposed (5) Charcot's joint of left foot Status: Chronic Code(s): M14.672 - Charcot's joint, left ankle and foot (6) Type 2 diabetes mellitus with diabetic polyneuropathy Status: Chronic Qualifiers: Diabetes mellitus residential insulin use: with hand packager use Qualified Code(s): E11.42 - Type 2 diabetes mellitus with diabetic polyneuropathy; Z79.4 - quality assurance practice manager (current) use of insulin Code(s): E11.42 - Type 2 diabetes mellitus with diabetic polyneuropathy Type of Wound Date of Service: 07/29/20 Chief Complaint: Left foot History of Wound: This is 75-year-old female with diabetic neuropathy history of Charcot left foot with rocker-bottom deformity, coronary artery disease and other comorbidities has a recurrent ulcer. She denies fever, chill, nausea, vomiting. She had a prior incision and drainage for gas infection of the left foot with serial debridements and wound care and delayed closure with application of advanced wound healing product in the operating room. She has been doing well and is stable. She took a break from a total contact cast last week relates she thinks her ulcer site got irritated. Progress of Wound: Stable without infection, decreased size noted. This is a courtesy visit for Dr. Magana due to the patient having cataract surgery on Saturday and being unable to attend her visit as previously scheduled. - Physical Exam Vital Signs Temp Pulse Resp BP 97.7 F L 68 18 112/42 L 03/05/21 11:57 07/29/20 11:57 07/29/20 11:57 07/29/20 11:57 General: Alert, Oriented x3, Cooperative, No apparent distress HEENT: Atraumatic, Normocephalic Oral: Moist Mucosa Abdomen: Obese Extremities: No edema Skin: Ulcer/ Wound Wound Measurements and Assessment WC - Nurse 1 - General Ulcer Measurement Start: 07/29/20 11:45 Freq: Status: Active Protocol: Activity Type Activity Date Activity User E-Sign Co-Sign Detail Recorded Client Recorded Date Recorded By Document 07/29/20 11:57 MW [id number] 07/29/20 12:00 MW 07/29/20 11:57 Wound Center Nurse 1 [Ulcer Assessment] #7 L Plantar Cluster -Current Size (cm) - Length 0.2 -Current Size (cm) - Width 0.2 -Current Size (cm) - Depth 0.2 -Total Square Cm 0.04 -Photo Taken No -Exudate Amt Medium -Exudate Type Serosanguineous -Wound Margin Thickened -Granulation Amt Large (67-100%) -Granulation Quality Pale -Necrosis Amt Small (1-33%) -Necrotic Tissue Type Adherent Slough -Structure Exposed N/A -Texture (Shannon-wound Skin Appearance) Scarring -Moisture (Shannon-wound Skin Appearance Maceration ) -Color (Shannon-wound Skin Appearance) No Abnormality -Temperature (Shannon-wound Skin No Abnormality Appearance) (Pt Warm) -Tenderness on Palpation (Shannon-wound No Skin Appearance) -Ulcer Cleansing Wound Cleanser -Foul Odor after Cleansing No -Anesthetic Used 4% Lidocaine Solution [Edema Assessment] -Left Calf (cm) 32.7 -Left Ankle (cm) 21 WC - Nurse 2 - General Ulcer CM Notes Start: 07/29/20 11:45 Freq: Status: Active Protocol: Activity Type Activity Date Activity User E-Sign Co-Sign Detail Recorded Client Recorded Date Recorded By Document 07/29/20 12:07 MW [id number] 07/29/20 12:18 MW 07/29/20 12:07 Wound Center Nurse 2 [Procedure/Treatment] #7 L Plantar Cluster -Time 12:10 -Correct Patient Yes -Correct Side, Site, Position Yes -Correct Procedure Yes -Procedure Performed Yes -Type of Procedure Debridement -Clinical Debridement Subcutaneous -Tissue Removed Subcutaneous -Post Debridement (cm) - Length 2.0 -Post Debridement (cm) - Width 1.7 -Post Debridement (cm) - Depth 0.2 -Total Square (Post) (cm) 3.40 -Area of Debridement (cm) - Length 2.0 -Area of Debridement (cm) - Width 1.7 -Total Square (Area) (cm) 3.40 -Tunneling No -Undermining/Tunneling No -Circular Undermining No -Wound/Ulcer Outcome Not Healed -Ulcer Cleansing Rinsed/ Irrigated with Saline -Foul Odor after Cleansing No -Bioengineered Tissue No -Bleeding Controlled with Pressure -Offloading No -Type of Offloading Total Contact Cast (TCC) - Left ($) -Treatment Response Procedure Tolerated Well -Debridement - Subq, 1st 20sq cm Yes [See Physician Procedure note for Specifics] Pain Scale: 0-10 Numeric [Pain] -Is Patient Pain Free? Yes - Nurse 3 - General Ulcer D/C NN Start: 07/29/20 11:45 Freq: Status: Active Protocol: Activity Type Activity Date Activity User E-Sign Co-Sign Detail Recorded Client Recorded Date Recorded By Document 07/29/20 12:20 MW [id number] 07/29/20 12:25 MW 07/29/20 12:20 Wound Care Nurse 3 [Wound Dressing] #7 L Plantar Cluster -Ulcer Cleansing Rinsed/ Irrigated with Saline -Foul Odor after Cleansing No -Primary Dressing Applied Promogran Lotus Matter -Other Dressing TCC undercasting applied -Promogran Lotus Matter 1 [Post Procedure Tolerated] -Treatment Response Procedure Tolerated Well Pain Scale: 0-10 Numeric [Pain] -Is Patient Pain Free? Yes - Visit Discharge [Visit Discharge Information] -Discharge Condition Stable -Ambulatory Status Ambulatory -Transportation Private Auto -Notes: TCC asst applied per Dr. Saini Psych/Mental Status: Normal Affect, Appropriate Debridement Note Post-Debridement Measurements/Treatment WC - Nurse 2 - General Ulcer CM Notes Start: 07/29/20 11:45 Freq: Status: Active Protocol: Activity Type Activity Date Activity User E-Sign Co-Sign Detail Recorded Client Recorded Date Recorded By Document 07/29/20 12:07 MW [id number] 07/29/20 12:18 MW 07/29/20 12:07 Wound Center Nurse 2 #7 L Plantar Cluster -Time 12:10 -Correct Patient Yes -Correct Side, Site, Position Yes -Correct Procedure Yes -Procedure Performed Yes -Type of Procedure Debridement -Clinical Debridement Subcutaneous -Tissue Removed Subcutaneous -Post Debridement (cm) - Length 2.0 -Post Debridement (cm) - Width 1.7 -Post Debridement (cm) - Depth 0.2 -Total Square (Post) (cm) 3.40 -Area of Debridement (cm) - Length 2.0 -Area of Debridement (cm) - Width 1.7 -Total Square (Area) (cm) 3.40 -Tunneling No -Undermining/Tunneling No -Circular Undermining No -Wound/Ulcer Outcome Not Healed -Ulcer Cleansing Rinsed/ Irrigated with Saline -Foul Odor after Cleansing No -Bioengineered Tissue No -Bleeding Controlled with Pressure -Offloading No -Type of Offloading Total Contact Cast (TCC) - Left ($) -Treatment Response Procedure Tolerated Well -Debridement - Subq, 1st 20sq cm Yes Pain Scale: 0-10 Numeric Is Patient Pain Free? Yes - Nurse 3 - General Ulcer D/C NN Start: 07/29/20 11:45 Freq: Status: Active Protocol: Activity Type Activity Date Activity User E-Sign Co-Sign Detail Recorded Client Recorded Date Recorded By Document 07/29/20 12:20 MW [id number] 07/29/20 12:25 MW 07/29/20 12:20 Wound Care Nurse 3 #7 L Plantar Cluster -Ulcer Cleansing Rinsed/ Irrigated with Saline -Foul Odor after Cleansing No -Primary Dressing Applied Promogran Lotus Matter -Other Dressing TCC undercasting applied -Promogran Lotus Matter 1 Treatment Response Procedure Tolerated Well Pain Scale: 0-10 Numeric Is Patient Pain Free? Yes WC - Visit Discharge Discharge Condition Stable Ambulatory Status Ambulatory Transportation Private Auto Notes: TCC asst applied per Dr. Saini Wound debrided: left plantar cluster Laterality: Left Wound Grade/Stage: Antonio grade 2 Type of Debridement: Excisional debridement Anesthesia Used: 4% Lidocaine Solution Depth: Down to and including healthy tissue, in the subcutaneous layer Percentage of wound debrided: 100 Instrument Used: 5mm curette Tissue Removed: Yellow slough, devitalized tissue Severity: Fat Layer Exposed Amount of bleeding with debridement: Mild Bleeding Controlled with: Compression and gauze Patient tolerated procedure well Assessment/Plan Active Problems (Last Reviewed 06/10/20 @ 21:[address] 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 Midfoot Charcot deformity, left. Diabetes with neuropathy. Malnutrition suspected Plan: I reviewed and discussed her case and previous treatment by Dr. Magana. Excisional subcutaneous debridement was performed as noted in the clinical nursing panel. She was reassured no local signs of infection are noted. Lotus was applied. I recommend application of total contact cast and she is amendable to proceed. Verbal consent was obtained and is applied according to standard protocol in a well-padded neutral position. She tolerated this well. She was advised to keep this clean, dry, and intact until follow-up next week. To offload with cam walker boot and reduce overall activity. Updated lab work was previously reviewed for her nonhealing wound and prior infection status. She did not have leukocytosis or elevation of her ESR C-reactive protein. This will be updated as needed. To continue proper glycemic control. A nutrition referral was recommended and provided previously for evaluation and management of her diabetes taking into consideration her prior gastric bypass restrictions and also her lifestyle changes. She continues alejandro supplementation. To follow-up with the wound healing center in 1 week or call sooner if she has any questions or concerns or development of local or systemic infection. I answered all of her questions. She has significant delays in healing. Note: [employer] speech recognition aircraft part assembler software was used to create portions of this document. Sound-alike and misspelled words, as well as other aircraft part assembler errors may be contained in the documentation.
[2020-08-03 13:03] VITALS: BP 112/62; PULSE 74; RESP 20; TEMP 36.4
--- NOTE | 2020-08-03 16:58 | PN.PCM_ITS ---
(1) Charcot's joint of left foot Status: Chronic Code(s): M14.672 - Charcot's joint, left ankle and foot (2) Type 2 diabetes mellitus with diabetic polyneuropathy Status: Chronic Qualifiers: Diabetes mellitus skilled nursing insulin use: with skilled nursing use Qualified Code(s): E11.42 - Type 2 diabetes mellitus with diabetic polyneuropathy; Z79.4 - MCC (current) use of insulin Code(s): E11.42 - Type 2 diabetes mellitus with diabetic polyneuropathy (3) 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 Code(s): L97.522 - Non-pressure chronic ulcer of other part of left foot with fat layer exposed Comment: Recurrent (4) Localized edema Status: Chronic Code(s): R60.0 - Localized edema Type of Wound Date of Service: 08/03/20 Chief Complaint: Left foot History of Wound: This is 75-year-old female with diabetic neuropathy history of Charcot left foot with rocker-bottom deformity, coronary artery disease and other comorbidities has a recurrent ulcer. She denies fever, chill, nausea, vomiting. She had a prior incision and drainage for gas infection of the left foot with serial debridements and wound care and delayed closure with application of advanced wound healing product in the operating room. She has been doing well and is stable. She missed her appointment last week and was able to reschedule last Saturday with Dr. Saini in which the total contact cast was reapplied and her ulcer site was checked. Progress of Wound: Improving - Physical Exam Vital Signs Temp Pulse Resp BP 97.5 F L 74 20 H 112/62 08/03/20 13:03 08/03/20 13:03 08/03/20 13:03 08/03/20 13:03 General: Alert, Oriented x3, Cooperative, No apparent distress HEENT: Atraumatic Extremities: No cyanosis, Capillary Refill Less than 3 Seconds, No Calf Tenderness, Diminished Peripheral Pulses, Edema - Mild left lower extremity consistent with prior visits, - - Chronic stable nonacute Charcot rocker-bottom foot noted Skin: Ulcer/ Wound - Peripheral epithelialization is noted. No purulence, erythema, streaking, odor, infection. Peripheral skin is atrophic and hairless Wound Measurements and Assessment WC - Nurse 1 - General Ulcer Measurement Start: 07/29/20 11:45 Freq: Status: Active Protocol: Activity Type Activity Date Activity User E-Sign Co-Sign Detail Recorded Client Recorded Date Recorded By Document 08/03/20 13:03 JACLYN [id number] 08/03/20 13:12 DL 08/03/20 13:03 Wound Center Nurse 1 [Ulcer Assessment] #7 L Plantar Cluster -Current Size (cm) - Length 0.1 -Current Size (cm) - Width 0.5 -Current Size (cm) - Depth 0.2 -Total Square Cm 0.05 -Photo Taken No -Exudate Amt Small -Exudate Type Serosanguineous -Wound Margin Thickened -Granulation Amt Small (1-33%) -Granulation Quality Pale -Necrosis Amt Small (1-33%) -Necrotic Tissue Type Adherent Slough -Structure Exposed N/A -Texture (Shannon-wound Skin Appearance) Scarring -Moisture (Shannon-wound Skin Appearance Maceration ) -Color (Shannon-wound Skin Appearance) No Abnormality -Temperature (Shannon-wound Skin No Abnormality Appearance) (Pt Warm) -Tenderness on Palpation (Shannon-wound No Skin Appearance) -Ulcer Cleansing Wound Cleanser -Foul Odor after Cleansing No -Anesthetic Used 4% Lidocaine Solution WC - Nurse 2 - General Ulcer CM Notes Start: 07/29/20 11:45 Freq: Status: Active Protocol: Activity Type Activity Date Activity User E-Sign Co-Sign Detail Recorded Client Recorded Date Recorded By Document 08/03/20 13:23 EULOGIO [id number] 08/03/20 13:26 JF 08/03/20 13:23 Wound Center Nurse 2 [Procedure/Treatment] -Time 13:24 -Correct Patient Yes -Correct Side, Site, Position Yes -Correct Procedure Yes -Procedure Performed Yes -Type of Procedure Debridement -Clinical Debridement Subcutaneous -Tissue Removed Subcutaneous -Post Debridement (cm) - Length 0.1 -Post Debridement (cm) - Width 0.3 -Post Debridement (cm) - Depth 0.1 -Total Square (Post) (cm) 0.03 -Area of Debridement (cm) - Length 0.1 -Area of Debridement (cm) - Width 0.3 -Total Square (Area) (cm) 0.03 -Tunneling No -Undermining/Tunneling No -Circular Undermining No -Wound/Ulcer Outcome Not Healed -Ulcer Cleansing Rinsed/ Irrigated with Saline -Foul Odor after Cleansing No -Bioengineered Tissue No -Bleeding Controlled with Pressure -Offloading Yes -Type of Offloading Total Contact Cast (TCC) - Left ($) -Treatment Response Procedure Tolerated Well -Debridement - Subq, 1st 20sq cm Yes [See Physician Procedure note for Specifics] Pain Scale: 0-10 Numeric [Pain] -Is Patient Pain Free? Yes - Nurse 3 - General Ulcer D/C NN Start: 07/29/20 11:45 Freq: Status: Active Protocol: Activity Type Activity Date Activity User E-Sign Co-Sign Detail Recorded Client Recorded Date Recorded By Document 08/03/20 13:39 BM [id number] 08/03/20 13:40 BM 08/03/20 13:39 Wound Care Nurse 3 [Wound Dressing] #7 L Plantar Cluster -Ulcer Cleansing Rinsed/ Irrigated with Saline -Foul Odor after Cleansing No -Primary Dressing Applied Other -Other Dressing reyna -Primary Dressing Covered/Secured Dry Gauze,Other with -Other Covering tcc undercast [Post Procedure Tolerated] -Treatment Response Procedure Tolerated Well - Visit Discharge [Visit Discharge Information] -Discharge Condition Stable -Ambulatory Status Ambulatory -Transportation Private Auto Musculoskeletal: No Tenderness to Palpation of Joints or Extremities, Muscle Wasting, - - Compartments are soft Neurological: - - Lack of epicritic sensation light touch is consistent with neuropathic status Psych/Mental Status: Normal Affect, Appropriate Debridement Note Post-Debridement Measurements/Treatment - Nurse 2 - General Ulcer CM Notes Start: 07/29/20 11:45 Freq: Status: Active Protocol: Activity Type Activity Date Activity User E-Sign Co-Sign Detail Recorded Client Recorded Date Recorded By Document 07/29/20 12:07 [id number] 07/29/20 12:18 MW Document 08/03/20 13:23 JF [id number] 08/03/20 13:26 JF 07/29/20 08/03/20 12:07 13:23 Wound Center Nurse 2 #7 L Plantar Cluster -Time 12:10 13:24 -Correct Patient Yes Yes -Correct Side, Site, Position Yes Yes -Correct Procedure Yes Yes -Procedure Performed Yes Yes -Type of Procedure Debridement Debridement -Clinical Debridement Subcutaneous Subcutaneous -Tissue Removed Subcutaneous Subcutaneous -Post Debridement (cm) - Length 2.0 0.1 -Post Debridement (cm) - Width 1.7 0.3 -Post Debridement (cm) - Depth 0.2 0.1 -Total Square (Post) (cm) 3.40 0.03 -Area of Debridement (cm) - Length 2.0 0.1 -Area of Debridement (cm) - Width 1.7 0.3 -Total Square (Area) (cm) 3.40 0.03 -Tunneling No No -Undermining/Tunneling No No -Circular Undermining No No -Wound/Ulcer Outcome Not Healed Not Healed -Ulcer Cleansing Rinsed/ Rinsed/ Irrigated with Irrigated with Saline Saline -Foul Odor after Cleansing No No -Bioengineered Tissue No No -Bleeding Controlled with Pressure Pressure -Offloading No Yes -Type of Offloading Total Contact Total Contact Cast (TCC) - Cast (TCC) - Left ($) Left ($) -Treatment Response Procedure Procedure Tolerated Well Tolerated Well -Debridement - Subq, 1st 20sq cm Yes Yes Pain Scale: 0-10 Numeric Is Patient Pain Free? Yes Yes - Nurse 3 - General Ulcer D/C NN Start: 07/29/20 11:45 Freq: Status: Active Protocol: Activity Type Activity Date Activity User E-Sign Co-Sign Detail Recorded Client Recorded Date Recorded By Document 07/29/20 12:20 MW [id number] 07/29/20 12:25 MW Document 08/03/20 13:39 [facility] [id number] 08/03/20 13:40 BMF 07/29/20 08/03/20 12:20 13:39 Wound Care Nurse 3 #7 L Plantar Cluster -Ulcer Cleansing Rinsed/ Rinsed/ Irrigated with Irrigated with Saline Saline -Foul Odor after Cleansing No No -Primary Dressing Applied Promogran Other Reyna Matter -Other Dressing TCC reyna undercasting applied -Primary Dressing Covered/Secured with Dry Gauze,Other -Other Covering tcc undercast -Promogran Reyna Matter 1 Treatment Response Procedure Procedure Tolerated Well Tolerated Well Pain Scale: 0-10 Numeric Is Patient Pain Free? Yes - Visit Discharge Discharge Condition Stable Stable Ambulatory Status Ambulatory Ambulatory Transportation Private Auto Private Auto Notes: TCC asst applied per Dr. Saini Wound debrided: plantar midfoot Laterality: Left Wound Grade/Stage: grade 2 Type of Debridement: Excisional debridement Anesthesia Used: 5% Lidocaine Gel Depth: in the subcutaneous layer Percentage of wound debrided: 100 Instrument Used: #15 blade Tissue Removed: fibrous, devitalized subcutaneous, biofilm, slough Severity: Fat Layer Exposed Amount of bleeding with debridement: Mild Bleeding Controlled with: Pressure Patient tolerated procedure well Assessment/Plan Active Problems (Last Reviewed 06/10/20 @ 21:[address] 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 Midfoot Charcot deformity, left. Diabetes with neuropathy. Malnutrition suspected. Edema lower extremity Plan: I reviewed and discussed her case today. Excisional subcutaneous debridement was performed as noted in the clinical nursing panel. She was reassured no local signs of infection are noted. Reyna was applied. I recommend application of total contact cast and she is amendable to proceed. Verbal consent was obtained and is applied according to standard protocol in a well-padded neutral position. She tolerated this well. She was advised to keep this clean, dry, and intact until follow-up next week. To offload with cam walker boot and reduce overall activity. Updated lab work was previously reviewed for her nonhealing wound and prior infection status. She did not have leukocytosis or elevation of her ESR C-reactive protein. This will be updated as needed. To continue proper glycemic control. A nutrition referral was recommended and provided previously for evaluation and management of her diabetes taking into consideration her prior gastric bypass restrictions and also her lifestyle changes. She continues alejandro supplementation. To follow-up with the wound healing center in 1 week or call sooner if she has any questions or concerns or development of local or systemic infection. I answered all of her questions. She has significant delays in healing. Note: [employer] speech recognition arc welder software was used to create portions of this document. Sound-alike and misspelled words, as well as other arc welder errors may be contained in the documentation.
[2020-08-10 13:20] VITALS: BP 144/53; PULSE 66; RESP 18; TEMP 35.8
--- NOTE | 2020-08-10 15:38 | PN.PCM_ITS ---
(1) Charcot's joint of left foot Status: Chronic Code(s): M14.672 - Charcot's joint, left ankle and foot (2) Type 2 diabetes mellitus with diabetic polyneuropathy Status: Chronic Qualifiers: Diabetes mellitus remote computer terminal operator insulin use: with remote computer terminal operator use Qualified Code(s): E11.42 - Type 2 diabetes mellitus with diabetic polyneuropathy; Z79.4 - terminal operations manager (current) use of insulin Code(s): E11.42 - Type 2 diabetes mellitus with diabetic polyneuropathy (3) 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 Code(s): L97.522 - Non-pressure chronic ulcer of other part of left foot with fat layer exposed Comment: Recurrent (4) Localized edema Status: Chronic Code(s): R60.0 - Localized edema Type of Wound Date of Service: 08/10/20 Chief Complaint: Left foot History of Wound: This is 75-year-old female with diabetic neuropathy history of Charcot left foot with rocker-bottom deformity, coronary artery disease and other comorbidities has a recurrent ulcer. She denies fever, chill, nausea, vomiting. She had a prior incision and drainage for gas infection of the left foot with serial debridements and wound care and delayed closure with application of advanced wound healing product in the operating room. She has been doing well and is stable. Progress of Wound: Improving - Physical Exam Vital Signs Temp Pulse Resp BP 96.5 F L 66 18 144/53 H 08/10/20 13:20 08/10/20 13:20 08/10/20 13:20 08/10/20 13:20 General: Alert, Oriented x3, Cooperative, No apparent distress Extremities: No cyanosis, Capillary Refill Less than 3 Seconds, No Calf Tenderness, Diminished Peripheral Pulses, Edema, - - charcot stable rocker bottom foot is non acute Skin: Ulcer/ Wound - No purulence, erythema, skin, odor, infection perianal skin is atrophic. Peripheral epithelialization is noted. Wound Measurements and Assessment WC - Nurse 1 - General Ulcer Measurement Start: 07/29/20 11:45 Freq: Status: Active Protocol: Activity Type Activity Date Activity User E-Sign Co-Sign Detail Recorded Client Recorded Date Recorded By Document 08/10/20 13:20 RB [id number] 08/10/20 13:28 RB 08/10/20 13:20 Wound Center Nurse 1 [Ulcer Assessment] #7 L Plantar Cluster -Combined with other wound No -Current Size (cm) - Length 0.1 -Current Size (cm) - Width 0.1 -Current Size (cm) - Depth 0.1 -Total Square Cm 0.01 -Tunneling No -Undermining/Tunneling No -Circular Undermining No -Exudate Amt Small -Exudate Type Serosanguineous -Wound Margin Flat & Intact -Granulation Amt Large (67-100%) -Granulation Quality [place] -Slough/Fibrin Yes -Necrosis Amt Small (1-33%) -Necrotic Tissue Type Adherent Slough -Structure Exposed N/A -Texture (Shannon-wound Skin Appearance) Callus -Moisture (Shannon-wound Skin Appearance Assessed ) -Color (Shannon-wound Skin Appearance) Assessed -Temperature (Shannon-wound Skin No Abnormality Appearance) (Pt Warm) -Tenderness on Palpation (Shannon-wound No Skin Appearance) -Ulcer Cleansing Wound Cleanser -Foul Odor after Cleansing No -Anesthetic Used 4% Lidocaine Solution WC - Nurse 2 - General Ulcer CM Notes Start: 07/29/20 11:45 Freq: Status: Active Protocol: Activity Type Activity Date Activity User E-Sign Co-Sign Detail Recorded Client Recorded Date Recorded By Document 08/10/20 13:42 EULOGIO [id number] 08/10/20 13:47 EULOGIO 08/10/20 13:42 Wound Center Nurse 2 [Procedure/Treatment] -Time 13:43 -Correct Patient Yes -Correct Side, Site, Position Yes -Correct Procedure Yes -Procedure Performed Yes -Type of Procedure Debridement -Clinical Debridement Subcutaneous -Tissue Removed Subcutaneous -Post Debridement (cm) - Length 0.2 -Post Debridement (cm) - Width 0.1 -Post Debridement (cm) - Depth 0.1 -Total Square (Post) (cm) 0.02 -Area of Debridement (cm) - Length 0.2 -Area of Debridement (cm) - Width 0.1 -Total Square (Area) (cm) 0.02 -Tunneling No -Undermining/Tunneling No -Circular Undermining No -Wound/Ulcer Outcome Not Healed -Ulcer Cleansing Rinsed/ Irrigated with Saline -Foul Odor after Cleansing No -Bioengineered Tissue No -Bleeding Controlled with Pressure -Offloading Yes -Type of Offloading Total Contact Cast (TCC) - Left ($) -Treatment Response Procedure Tolerated Well -Debridement - Subq, 1st 20sq cm Yes [See Physician Procedure note for Specifics] Pain Scale: 0-10 Numeric [Pain] -Is Patient Pain Free? Yes Musculoskeletal: No Tenderness to Palpation of Joints or Extremities, Muscle Wasting Neurological: - - lack of epicritic sensation via light touch consistent with neuropathy status Psych/Mental Status: Normal Affect, Appropriate Debridement Note Post-Debridement Measurements/Treatment WC - Nurse 2 - General Ulcer CM Notes Start: 07/29/20 11:45 Freq: Status: Active Protocol: Activity Type Activity Date Activity User E-Sign Co-Sign Detail Recorded Client Recorded Date Recorded By Document 07/29/20 12:07 MW [id number] 07/29/20 12:18 MW Document 08/03/20 13:23 JF [id number] 08/03/20 13:26 JF Document 08/10/20 13:42 JF [id number] 08/10/20 13:47 JF 07/29/20 08/03/20 08/10/20 12:07 13:23 13:42 Wound Center Nurse 2 #7 L Plantar Cluster -Time 12:10 13:24 13:43 -Correct Patient Yes Yes Yes -Correct Side, Site, Position Yes Yes Yes -Correct Procedure Yes Yes Yes -Procedure Performed Yes Yes Yes -Type of Procedure Debridement Debridement Debridement -Clinical Debridement Subcutaneous Subcutaneous Subcutaneous -Tissue Removed Subcutaneous Subcutaneous Subcutaneous -Post Debridement (cm) - Length 2.0 0.1 0.2 -Post Debridement (cm) - Width 1.7 0.3 0.1 -Post Debridement (cm) - Depth 0.2 0.1 0.1 -Total Square (Post) (cm) 3.40 0.03 0.02 -Area of Debridement (cm) - Length 2.0 0.1 0.2 -Area of Debridement (cm) - Width 1.7 0.3 0.1 -Total Square (Area) (cm) 3.40 0.03 0.02 -Tunneling No No No -Undermining/Tunneling No No No -Circular Undermining No No No -Wound/Ulcer Outcome Not Healed Not Healed Not Healed -Ulcer Cleansing Rinsed/ Rinsed/ Rinsed/ Irrigated with Irrigated with Irrigated with Saline Saline Saline -Foul Odor after Cleansing No No No -Bioengineered Tissue No No No -Bleeding Controlled with Pressure Pressure Pressure -Offloading No Yes Yes -Type of Offloading Total Contact Total Contact Total Contact Cast (TCC) - Cast (TCC) - Cast (TCC) - Left ($) Left ($) Left ($) -Treatment Response Procedure Procedure Procedure Tolerated Well Tolerated Well Tolerated Well -Debridement - Subq, 1st 20sq cm Yes Yes Yes Pain Scale: 0-10 Numeric Is Patient Pain Free? Yes Yes Yes WC - Nurse 3 - General Ulcer D/C NN Start: 07/29/20 11:45 Freq: Status: Active Protocol: Activity Type Activity Date Activity User E-Sign Co-Sign Detail Recorded Client Recorded Date Recorded By Document 07/29/20 12:20 MW [id number] 07/29/20 12:25 MW Document 08/03/20 13:39 BMF [id number] 08/03/20 13:40 BMF 07/29/20 08/03/20 12:20 13:39 Wound Care Nurse 3 #7 L Plantar Cluster -Ulcer Cleansing Rinsed/ Rinsed/ Irrigated with Irrigated with Saline Saline -Foul Odor after Cleansing No No -Primary Dressing Applied Promogran Other Reyna Matter -Other Dressing TCC reyna undercasting applied -Primary Dressing Covered/Secured with Dry Gauze,Other -Other Covering tcc undercast -Promogran Reyna Matter 1 Treatment Response Procedure Procedure Tolerated Well Tolerated Well Pain Scale: 0-10 Numeric Is Patient Pain Free? Yes - Visit Discharge Discharge Condition Stable Stable Ambulatory Status Ambulatory Ambulatory Transportation Private Auto Private Auto Notes: TCC asst applied per Dr. Saini Wound debrided: plantar midfoot Laterality: Left Wound Grade/Stage: grade 2 Type of Debridement: Selective debridement Anesthesia Used: 5% Lidocaine Gel Depth: in the subcutaneous layer Percentage of wound debrided: 100 Instrument Used: #15 blade Tissue Removed: fibrous, devitalized subcutaneous, biofilm, slough Severity: Fat Layer Exposed Amount of bleeding with debridement: Mild Bleeding Controlled with: Pressure Patient tolerated procedure well Assessment/Plan Active Problems (Last Reviewed 06/10/20 @ 21:[address] 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 Midfoot Charcot deformity, left. Diabetes with neuropathy. Malnutrition suspected. Edema lower extremity Plan: I reviewed and discussed her case today. Excisional subcutaneous debridement was performed as noted in the clinical nursing panel. She was reassured no local signs of infection are noted. Reyna was applied. I recommend application of total contact cast and she is amendable to proceed. Verbal consent was obtained and is applied according to standard protocol in a well-padded neutral position. She tolerated this well. She was advised to keep this clean, dry, and intact until follow-up next week. To offload with cam walker boot and reduce overall activity. Updated lab work was previously reviewed for her nonhealing wound and prior infection status. She did not have leukocytosis or elevation of her ESR C-reactive protein. This will be updated as needed. To continue proper glycemic control. A nutrition referral was recommended and provided previously for evaluation and management of her diabetes taking into consideration her prior gastric bypass restrictions and also her lifestyle changes. She continues alejandro supplementation. To follow-up with the wound healing center in 1 week or call sooner if she has any questions or concerns or development of local or systemic infection. I answered all of her questions. She has significant delays in healing. Note: [employer] speech recognition recycling coordinator software was used to create portions of this document. Sound-alike and misspelled words, as well as other recycling coordinator errors may be contained in the documentation.
[2020-08-17 13:10] VITALS: RESP 20; TEMP 36.4
--- NOTE | 2020-08-17 16:21 | PCM.WC.PN ---
(1) Charcot's joint of left foot Status: Chronic Code(s): M14.672 - Charcot's joint, left ankle and foot (2) Type 2 diabetes mellitus with diabetic polyneuropathy Status: Chronic Qualifiers: Diabetes mellitus intermediate insulin use: with intermediate use Qualified Code(s): E11.42 - Type 2 diabetes mellitus with diabetic polyneuropathy; Z79.4 - penitentiary (current) use of insulin Code(s): E11.42 - Type 2 diabetes mellitus with diabetic polyneuropathy (3) 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 Code(s): L97.522 - Non-pressure chronic ulcer of other part of left foot with fat layer exposed Comment: Recurrent (4) Localized edema Status: Chronic Code(s): R60.0 - Localized edema Type of Wound Date of Service: 08/17/20 Chief Complaint: Left foot History of Wound: This is 75-year-old female with diabetic neuropathy history of Charcot left foot with rocker-bottom deformity, coronary artery disease and other comorbidities has a recurrent ulcer. She denies fever, chill, nausea, vomiting. She has had delayed healing of her plantar foot ulcer secondary to rocker-bottom Charcot foot deformity, recurrent ulcers and infections. She has kept her total contact cast clean dry and intact and reports more pain to her foot the past 3 days. She relates she has been feeling sick since she got her Covid second vaccination in which she had initial fevers and then ongoing chills this past week. She is also extremely fatigued and has severe recent onset of low back pain. She was seen by her primary care physician earlier today who she reports ordered x-rays. Progress of Wound: Worse status now with infection - Physical Exam Vital Signs Temp Pulse Resp BP 97.5 F L 66 20 H 144/53 H 08/17/20 13:10 08/10/20 13:20 08/17/20 13:10 08/10/20 13:20 General: Alert, Oriented x3, Cooperative, No apparent distress HEENT: Atraumatic Extremities: No cyanosis, Capillary Refill Less than 3 Seconds, No Calf Tenderness, Diminished Peripheral Pulses, Edema Skin: Ulcer/ Wound - Increased edema and erythema to plantar foot extends beyond 2 cm with some subtle streaking to the dorsal foot. There is an area that has reopened along a prior remote incision and drainage site distal to the ulcer site that has been recently treated. There is about 2 cc of purulent drainage., - - No odor, fluctuance, bogginess on palpation. Nonadhered third toenail with subungual dried blood noted. There is serous drainage upon debridement of the hallux nail centrally with tenderness to palpation. The remaining part of this hallux nail is well adhered. Wound Measurements and Assessment WC - Nurse 1 - General Ulcer Measurement Start: 07/29/20 11:45 Freq: Status: Active Protocol: Activity Type Activity Date Activity User E-Sign Co-Sign Detail Recorded Client Recorded Date Recorded By Document 08/17/20 13:10 DL [id number] 08/17/20 13:25 DL 08/17/20 13:10 Wound Center Nurse 1 [Ulcer Assessment] #7 L Plantar Cluster -Current Size (cm) - Length 5 -Current Size (cm) - Width 0.4 -Current Size (cm) - Depth 0.7 -Total Square Cm 2.0 -Photo Taken Yes -Exudate Amt Medium -Exudate Type Yellow/Green -Wound Margin Distinct, Outline Attached -Granulation Amt Medium (34-66%) -Granulation Quality Red -Necrosis Amt Medium (34-66%) -Necrotic Tissue Type Adherent Slough -Structure Exposed N/A -Texture (Shannon-wound Skin Appearance) Localized Edema ,Scarring -Moisture (Shannon-wound Skin Appearance No Abnormality ) -Color (Shannon-wound Skin Appearance) Erythema -Temperature (Shannon-wound Skin Hot Appearance) -Tenderness on Palpation (Shannon-wound Yes Skin Appearance) -Ulcer Cleansing Wound Cleanser -Foul Odor after Cleansing No -Anesthetic Used 4% Lidocaine Solution,5% Lidocaine Gel [Edema Assessment] -Left Calf (cm) 31 -Left Ankle (cm) 21.5 WC - Nurse 2 - General Ulcer CM Notes Start: 07/29/20 11:45 Freq: Status: Active Protocol: Activity Type Activity Date Activity User E-Sign Co-Sign Detail Recorded Client Recorded Date Recorded By Document 08/17/20 13:35 [email or web address] [id number] 08/17/20 13:42 EULOGIO 08/17/20 13:35 Wound Center Nurse 2 [Procedure/Treatment] #7 L Plantar Cluster -Time 13:35 -Correct Patient Yes -Correct Side, Site, Position Yes -Correct Procedure Yes -Procedure Performed Yes -Type of Procedure Debridement -Clinical Debridement Subcutaneous -Tissue Removed Subcutaneous -Post Debridement (cm) - Length 5 -Post Debridement (cm) - Width 0.5 -Post Debridement (cm) - Depth 0.8 -Total Square (Post) (cm) 2.5 -Area of Debridement (cm) - Length 5 -Area of Debridement (cm) - Width 0.5 -Total Square (Area) (cm) 2.5 -Tunneling No -Undermining/Tunneling No -Circular Undermining No -Wound/Ulcer Outcome Not Healed -Ulcer Cleansing Rinsed/ Irrigated with Saline -Foul Odor after Cleansing No -Bioengineered Tissue No -Bleeding Controlled with Pressure -Offloading No -Treatment Response Procedure Tolerated Well -Debridement - Subq, 1st 20sq cm Yes [See Physician Procedure note for Specifics] Pain Scale: 0-10 Numeric [Pain] -Is Patient Pain Free? Yes AMINAH - Nurse 3 - General Ulcer D/C NN Start: 07/29/20 11:45 Freq: Status: Active Protocol: Activity Type Activity Date Activity User E-Sign Co-Sign Detail Recorded Client Recorded Date Recorded By Document 08/17/20 13:47 [id number] 08/17/20 13:48 EULOGIO 08/17/20 13:47 Wound Care Nurse 3 [Wound Dressing] #7 L Plantar Cluster -Ulcer Cleansing Rinsed/ Irrigated with Saline -Foul Odor after Cleansing No -Other Dressing betadine gauze -Primary Dressing Covered/Secured Dry Gauze, with Secured with Tape Pain Scale: 0-10 Numeric [Pain] -Is Patient Pain Free? Yes - Visit Discharge [Visit Discharge Information] -Discharge Condition Stable -Ambulatory Status Ambulatory -Transportation Private Auto -Medication Reconcilliation completed Yes & provided to patient/care provider -Clinical Summary of Care Provided Yes Musculoskeletal: Muscle Wasting, Tenderness - Tenderness with ulcer manipulation. Nails 1, 2, 3, 4, 5 left are long, thick, dystrophic and with subungual debris, - - No laxity with midfoot attempted manipulation. Compartments of left lower extremity remain soft Neurological: - - Lack of full epicritic sensation is consistent with neuropathic status Psych/Mental Status: Normal Affect, Appropriate Debridement Note Post-Debridement Measurements/Treatment AMINAH - Nurse 2 - General Ulcer CM Notes Start: 07/29/20 11:45 Freq: Status: Active Protocol: Activity Type Activity Date Activity User E-Sign Co-Sign Detail Recorded Client Recorded Date Recorded By Document 07/29/20 12:07 [id number] 07/29/20 12:18 MW Document 08/03/20 13:23 JF [id number] 08/03/20 13:26 JF Document 08/10/20 13:42 JF [id number] 08/10/20 13:47 JF Document 08/17/20 13:35 JF [id number] 08/17/20 13:42 JF 07/29/20 08/03/20 08/10/20 12:07 13:23 13:42 Wound Center Nurse 2 #7 L Plantar Cluster -Time 12:10 13:24 13:43 -Correct Patient Yes Yes Yes -Correct Side, Site, Position Yes Yes Yes -Correct Procedure Yes Yes Yes -Procedure Performed Yes Yes Yes -Type of Procedure Debridement Debridement Debridement -Clinical Debridement Subcutaneous Subcutaneous Subcutaneous -Tissue Removed Subcutaneous Subcutaneous Subcutaneous -Post Debridement (cm) - Length 2.0 0.1 0.2 -Post Debridement (cm) - Width 1.7 0.3 0.1 -Post Debridement (cm) - Depth 0.2 0.1 0.1 -Total Square (Post) (cm) 3.40 0.03 0.02 -Area of Debridement (cm) - Length 2.0 0.1 0.2 -Area of Debridement (cm) - Width 1.7 0.3 0.1 -Total Square (Area) (cm) 3.40 0.03 0.02 -Tunneling No No No -Undermining/Tunneling No No No -Circular Undermining No No No -Wound/Ulcer Outcome Not Healed Not Healed Not Healed -Ulcer Cleansing Rinsed/ Rinsed/ Rinsed/ Irrigated with Irrigated with Irrigated with Saline Saline Saline -Foul Odor after Cleansing No No No -Bioengineered Tissue No No No -Bleeding Controlled with Pressure Pressure Pressure -Offloading No Yes Yes -Type of Offloading Total Contact Total Contact Total Contact Cast (TCC) - Cast (TCC) - Cast (TCC) - Left ($) Left ($) Left ($) -Treatment Response Procedure Procedure Procedure Tolerated Well Tolerated Well Tolerated Well -Debridement - Subq, 1st 20sq cm Yes Yes Yes Pain Scale: 0-10 Numeric Is Patient Pain Free? Yes Yes Yes 08/17/20 13:35 Wound Center Nurse 2 #7 L Plantar Cluster -Time 13:35 -Correct Patient Yes -Correct Side, Site, Position Yes -Correct Procedure Yes -Procedure Performed Yes -Type of Procedure Debridement -Clinical Debridement Subcutaneous -Tissue Removed Subcutaneous -Post Debridement (cm) - Length 5 -Post Debridement (cm) - Width 0.5 -Post Debridement (cm) - Depth 0.8 -Total Square (Post) (cm) 2.5 -Area of Debridement (cm) - Length 5 -Area of Debridement (cm) - Width 0.5 -Total Square (Area) (cm) 2.5 -Tunneling No -Undermining/Tunneling No -Circular Undermining No -Wound/Ulcer Outcome Not Healed -Ulcer Cleansing Rinsed/ Irrigated with Saline -Foul Odor after Cleansing No -Bioengineered Tissue No -Bleeding Controlled with Pressure -Offloading No -Type of Offloading -Treatment Response Procedure Tolerated Well -Debridement - Subq, 1st 20sq cm Yes Pain Scale: 0-10 Numeric Is Patient Pain Free? Yes - Nurse 3 - General Ulcer D/C NN Start: 07/29/20 11:45 Freq: Status: Active Protocol: Activity Type Activity Date Activity User E-Sign Co-Sign Detail Recorded Client Recorded Date Recorded By Document 07/29/20 12:20 [id number] 07/29/20 12:25 MW Document 08/03/20 13:39 [facility] [id number] 08/03/20 13:40 BM Document 08/17/20 13:47 [id number] 08/17/20 13:48 07/29/20 08/03/20 08/17/20 12:20 13:39 13:47 Wound Care Nurse 3 #7 L Plantar Cluster -Ulcer Cleansing Rinsed/ Rinsed/ Rinsed/ Irrigated with Irrigated with Irrigated with Saline Saline Saline -Foul Odor after Cleansing No No No -Primary Dressing Applied Promogran Other Reyna Matter -Other Dressing TCC reyna betadine gauze undercasting applied -Primary Dressing Covered/Secured with Dry Gauze,Other Dry Gauze, Secured with Tape -Other Covering tcc undercast -Promogran Reyna Matter 1 Treatment Response Procedure Procedure Tolerated Well Tolerated Well Pain Scale: 0-10 Numeric Is Patient Pain Free? Yes Yes - Visit Discharge Discharge Condition Stable Stable Stable Ambulatory Status Ambulatory Ambulatory Ambulatory Transportation Private Auto Private Auto Private Auto Medication Reconcilliation completed & Yes provided to patient/care provider Clinical Summary of Care Provided Yes Notes: TCC asst applied per Dr. Saini Wound debrided: plantar foot Laterality: Left Wound Grade/Stage: grade 2 Type of Debridement: Excisional debridement Depth: in the subcutaneous layer Percentage of wound debrided: 100 Tissue Removed: fibrous, devitalized subcutaneous, biofilm, slough Severity: Fat Layer Exposed Amount of bleeding with debridement: Mild Bleeding Controlled with: Pressure Patient tolerated procedure well Assessment/Plan Active Problems (Last Reviewed 06/10/20 @ 21:[address] 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) Diabetes mellitus type 2 in obese (Chronic) Nonhealing surgical wound (Chronic) Ulcer of right foot with fat layer exposed (Chronic) Charcot's joint of left foot (Chronic) Type 2 diabetes mellitus with diabetic polyneuropathy (Chronic) Ulcer of left foot with fat layer exposed (Chronic) Recurrent Assessment: left foot plantar ulcer, britt grade 2, new infection. osteomyelitis suspected and work up recommended. Midfoot Charcot deformity, left. Diabetes with neuropathy. Malnutrition suspected. Edema lower extremity Plan: I reviewed and discussed her case today. Excisional subcutaneous debridement was performed as noted in the clinical nursing panel. Her worsening status is noted. After the debridement saline irrigation was performed. Deep wound cultures were obtained including aerobic, anaerobic, and MRSA PCR. She does have erythema that extends beyond a couple of centimeters around the ulcer site and she is high risk for limb loss. She is also systemically not feeling well and has other nonpodiatric ailments at this time. I recommended hospital admission for IV antibiotics and potential foot surgery. I recommend updating foot x-rays, labs (CBC, CMP, ESR, C-reactive protein), and foot MRI. She is unable to go to the emergency room at this time or get direct admitted at this time. She plans to return home and she was advised to go in a timely manner to start her treatment and further work-up. To offload with cam walker boot and reduce overall activity. Dressing consisting of Betadine wet-to-dry gauze was applied. She understands she is at risk for limb loss. Additional diagnostic data is recommended for work-up of osteomyelitis and to determine extent of surgical intervention. Note: [employer] speech recognition hog scraper software was used to create portions of this document. Sound-alike and misspelled words, as well as other hog scraper errors may be contained in the documentation.
== END 2020-08-24 23:59 ==
LOC: WC 13:15
PROVIDERS: PCP Family Medicine; Referring Provider Podiatrist; Visit Provider Podiatrist
DX: E11.621 Type 2 diabetes mellitus with foot ulcer (principal); L97.422 Non-pressure chronic ulcer of left heel and midfoot with fat layer exposed; L97.423 Non-pressure chronic ulcer of left heel and midfoot with necrosis of muscle; T81.89XA Other complications of procedures, not elsewhere classified, initial encounter; Y83.9 Surgical procedure, unspecified as the cause of abnormal reaction of the patient, or of later complication, without mention of misadventure at the time of the procedure; Y92.9 Unspecified place or not applicable; E11.610 Type 2 diabetes mellitus with diabetic neuropathic arthropathy; E11.42 Type 2 diabetes mellitus with diabetic polyneuropathy; R60.0 Localized edema; I25.10 Atherosclerotic heart disease of native coronary artery without angina pectoris; E66.9 Obesity, unspecified; Z79.4 Long term (current) use of insulin; Z79.02 Long term (current) use of antithrombotics/antiplatelets; Z79.82 Long term (current) use of aspirin; Z79.891 Long term (current) use of opiate analgesic; Z79.899 Other long term (current) drug therapy; Z98.84 Bariatric surgery status
CPT/HCPCS: 11042; 29445; 87070; 87075; 87077; 87186; 87205

== ENCOUNTER 2020-08-17 15:18 | Inpatient (IN) | payer MEDICARE, OTHER, SELFPAY ==
[2020-08-17 15:19] VITALS: BP 127/33; PULSE 78; RESP 14; TEMP 36.6; O2SAT 92; BMI 31.7
--- NOTE | 2020-08-17 15:40 | EKG12_ITS ---
Test Reason : WOUND Blood Pressure : / mmHG Vent. Rate : 078 BPM Atrial Rate : 078 BPM P-R Int : 188 ms QRS Dur : 084 ms QT Int : 368 ms P-R-T Axes : -02 -29 053 degrees QTc Int : 419 ms Normal sinus rhythm Normal ECG Confirmed by MIGUEL ANGEL ANAYA, FADI ([id number]), editor house organ CAMERON CALLES ([id number]) on 08/19/2020 9:29:56 AM Referred By: JIHAN Confirmed By:POLLY MICHELLE MD
--- NOTE | 2020-08-17 15:42 | RAD_ITS ---
STUDY: X-RAY - LEFT FOOT CLINICAL: Female, 75 years old. Injury/Pain TECHNIQUE: 3 view(s) of the foot. COMPARISON: 04/16/2020 FINDINGS: Normal talus, calcaneus, and tarsal bones. Severe midfoot arthrosis. Normal metatarsi. Normal metatarsophalangeal joint of the great toe. Normal tibial and fibular sesamoid bones. Normal interphalangeal joint of the great toe. Normal phalanges of the great toe. Normal second through fifth metatarsophalangeal joints. Normal interphalangeal joints and phalanges of the lesser toes. The soft tissue structures are unremarkable. RAD/Foot min 3 Views IMPRESSION: 1. No acute fracture or dislocation. 2. Severe midfoot arthrosis. Electronically Signed: Tonny Khalil MD at 17:11 EDT Tel , Service support ,
--- NOTE | 2020-08-17 15:44 | ED.VIS.GEN ---
History of Present Illness Chief Complaint: Wound Informant: Patient Onset: Days - Left foot pain starting Saturday. Saw podiatry today and sent to ER for infection Context: Sudden Onset Timing: Continuous Quality: Redness and pain Location: Left foot Current Severity: Mild Maximum Severity: Moderate Worsened by: Attempt to ambulate Relieved by: Nothing Associated Symptoms: No constitutional symptoms Narrative: Patient is a 75-year-old female with type 1 diabetes, coronary disease, hypertension and hyperlipidemia who was sent in by Dr. Cheema for diabetic foot infection. She operated on prior to . She states the foot began to hurt on Saturday. The cast was removed. She states she has a new cast applied every week. She was sent in because of infection. Patient's dressings were just changed prior to arrival. Patient denies fever, chills night sweats. She denies symptoms of claudication. Her last A1c was greater than 8. She denies symptoms consistent with claudication. She denies history of peripheral arterial disease. She denied drainage when seen by podiatry. Prior similar symptoms: Yes Recent Illness/Hospitalization: Yes - Past Medical History (1) Infection of left foot Status: Acute (2) Allergic rhinitis Status: Chronic (3) Atherosclerotic heart disease of [place] coronary artery without angina pectoris Status: Chronic Comment: CABG X 3 vessels [facility]: DANIEL to LAD, reverse SVG to dx and to 2nd OM per Dr. Borjas @ [facility] 09/09/2014; PTCA/YASIR to Left main, LAD, and OM1 per Dr. Hatfield 12/21/2014; (4) Carotid artery disease Status: Chronic (5) Charcot's joint of left foot Status: Chronic (6) Coronary artery disease Status: Chronic (7) Depression Status: Chronic (8) GERD (gastroesophageal reflux disease) Status: Chronic (9) Gout Status: Chronic (10) History of CVA (cerebrovascular accident) Status: Chronic (11) Hyperlipidemia Status: Chronic (12) Hypothyroidism Status: Chronic (13) Iron deficiency anemia Status: Chronic (14) Nonhealing surgical wound Status: Chronic (15) Peripheral arterial occlusive disease Status: Chronic (16) Vitamin D deficiency Status: Chronic Past Medical History - Allergies and Home Meds Allergies/Adverse Reactions: Allergies doxycycline Allergy (Severe, Verified 08/17/20 15:19) all over body hives and itching atorvastatin calcium [From Lipitor] Allergy (Verified 08/17/20 15:19) Unknown bupropion HCl [From Wellbutrin] Allergy (Verified 08/17/20 15:19) Unknown mannitol [From Reclast] Allergy (Verified 08/17/20 15:19) joint pain, unable to breathe, unable to walk propoxyphene napsylate [From Darvocet-N 100] Allergy (Verified 08/17/20 15:19) Unknown Quinolones Allergy (Verified 08/17/20 15:19) Unknown Tetanus Vaccines and Toxoid [Tetanus Vaccines & Toxoid] Allergy (Verified 08/17/20 15:19) Chest tightness tizanidine Allergy (Verified 08/17/20 15:19) Unknown zoledronic acid [From Reclast] Allergy (Verified 08/17/20 15:19) joint pain,unable to breathe, unaable to walk JOINT PAIN,UNABLE TO BREATHE,UNABLE TO WALK pravastatin Adverse Reaction (Severe, Verified 08/17/20 15:19) Myalgias gemfibrozil Adverse Reaction (Intermediate, Verified 08/17/20 15:19) Unknown NSAIDS (Non-Steroidal Anti-Inflamma Adverse Reaction (Verified 08/17/20 15:19) Other Primary Care Physician: Con Johnson MD [Primary Care Provider] - 3-5 Days if not improving Surgical History: angioplasty - Stent., appendectomy, coronary bypass surgery, gastric bypass, tonsillectomy, - - , Carpal tunnel release, cardiac catheterization, carotid endarterectomy, right foot transmetatarsal amputation, exostectomy left foot Smoking Status: Never smoker - Family History Paternal Family History: Family History (Last Reviewed 06/10/20 @ 21:[address] Judson Massey MD) Mother Cancer CVA (cerebral vascular accident) CAD (coronary artery disease) Father CAD (coronary artery disease) History of coronary artery bypass graft Sister CAD (coronary artery disease) Multiple sclerosis Other Anxiety Bleeding disorder Depression Diabetes Heart disease High cholesterol Hypertension Family History: Reports: No pertinent history Maternal Family History: Family History (Last Reviewed 06/10/20 @ 21:[address] Judson Massey MD) Mother Cancer CVA (cerebral vascular accident) CAD (coronary artery disease) Father CAD (coronary artery disease) History of coronary artery bypass graft Sister CAD (coronary artery disease) Multiple sclerosis Other Anxiety Bleeding disorder Depression Diabetes Heart disease High cholesterol Hypertension Family History: Reports: No pertinent history Review of Systems General: Denies: Chills, Fever, Malaise, Sweats Eyes: Denies: Visual changes - bilaterally, Blurred Vision - bilaterally, Diplopia ENT: Denies: Rhinorrhea, Sore throat Cardiovascular: Denies: Chest pain, Palpitations Respiratory: Denies: Dyspnea, Cough, Dyspnea on exertion Gastrointestinal: Denies: Abdominal pain, Nausea, Vomiting, Diarrhea, Melena, Hematochezia Genitourinary: Denies: Dysuria, Hematuria, Frequency Musculoskeletal: Reports: Extremity Pain. Denies: Myalgias, Arthralgias, Neck pain, Back pain, Swelling Skin: Reports: Rash, Wounds. Denies: Abscess, Abrasions Neurological: Denies: Headache, Weakness, Parasthesia, Numbness Psych: Reports: Depression Endocrine: Denies: Polyuria, Polydipsia Physical Exam Vital Signs/Narrative: Vital Signs Temp Pulse Resp BP Pulse Ox 08/17/20 15:19 97.9 F 78 14 127/33 H 92 Inital Vital Signs reviewed: Yes General: Well nourished, Well developed, No Acute Distress Head: Normocephalic, Atraumatic Eyes: Perrl, EOMI ENT: Moist mucous membranes, No rhinorrhea Neck: Supple, Nontender, No lymphadenopathy, No JVD Cardiovascular: Regular rate, Regular rhythm, No murmurs, Normal S1, Normal S2 Respiratory: No distress, CTA bilaterally, Chest nontender Abdomen: Soft, Nontender, Nondistended, Normal bowel sounds Back: Nontender, Normal Inspection Extremities: No edema, Tenderness, - - Erythema noted on the dorsal medial and dorsal lateral side of the foot as well as on the plantar surface. There is an open wound noted. The dressing was taken down to see areas of erythema consistent with cellulitis. There is no fluctuance. There is no crepitus. There is no pain. DP pulses pa Skin: Normal color, No rash Neurological: Alert, Oriented x3, Cranial nerves II-XII grossly intact, Normal Strength, Normal Sensation. Negative for: Normal Gait Psychological: Depressed Diagnostic/Tx/Re-eval Chest X-Ray - ED: Read by ED Physician - View x-ray of the foot reveals significant arthritic changes consistent with Charcot foot. There is soft tissue swelling noted. There may be subcutaneous air due to recent wound. There is no evidence of osteomyelitis. Impressions Foot X-Ray 08/17/20 15:42 IMPRESSION: 1. No acute fracture or dislocation. 2. Severe midfoot arthrosis. Electronically Signed: Tonny Khalil MD at 17:11 EDT Tel , Service support , 08/17/20 15:42 Foot min 3 Views [RAD] Stat Laboratory Results 08/17/20 08/17/20 08/17/20 16:50 16:50 16:50 WBC 10.3 RBC 4.18 L Hgb 12.2 Hct 37.4 MCV 89.5 MCH 29.2 MCHC 32.6 RDW Std Deviation 49.0 H RDW Coeff of Marco 15.0 H Plt Count 240 MPV 9.5 Immature Gran % (Auto) 0.700 Neut % (Auto) 67.8 Lymph % (Auto) 19.3 [place] % (Auto) 9.6 Eos % (Auto) 2.3 Baso % (Auto) 0.3 Absolute Neuts (auto) 7.0 Absolute Lymphs (auto) 1.98 Nucleated RBC % 0 Sodium 133 L Potassium 4.7 Chloride 109 H Carbon Dioxide 17.0 L Anion Gap 7 BUN 51 H Creatinine 1.32 H Estim Creat Clear Calc 32.78 Est GFR (MDRD) Af Amer 51 L Est GFR (MDRD) Non-Af 42 L BUN/Creatinine Ratio 38.6 H Glucose 169 H Lactic Acid 0.6 Calcium 8.5 Total Bilirubin 0.20 AST 18 ALT 36 Alkaline Phosphatase 82 C-React Prot Ext Range 18.40 H Total Protein 6.9 Albumin 2.8 L Globulin 4.1 Albumin/Globulin Ratio 0.7 L Elevated creatinine noted. Patient has a CO2 of 17 with a normal anion gap. This is probably due to her renal insufficiency and diabetes. Glucose is elevated 169. C-reactive protein is elevated 18.4. - Medical Decision Making With a diabetic foot infection. Since this has been an ongoing problem with acute exacerbations x-ray was obtained to determine if there are any destruction of bone, appropriate blood work including sed rate, CRP and blood cultures. Patient was treated with Zosyn and vancomycin. Patient's allergy to penicillin is nausea, which is not a true allergy. Procedures Procedure(s): Blood draw right femoral vein by me. The area was prepped draped. The right femoral vein was successfully cannulated on first attempt on the way in. 50 cc of blood was drawn for appropriate studies. ED Disposition - Plan for ED Patient: Disposition: Acute Care Hospital [facility] Diagnosis: Diabetic infection of left foot Referrals: Con Johnson MD [Primary Care Provider] - 3-5 Days if not improving
[2020-08-17] MEDS: 0.9% Normal Saline 1,000 ML 150 ML IV (17:16)
[2020-08-17 17:40] LABS: Absolute Lymphocyte Count 1.98 X10^3/uL (0.83-4.51); Basophil# 0.03 X10^3/uL; Basophil% 0.3 % (0-1); Eosinophil# 0.24 X10^3/uL; Eosinophils% 2.3 % (0-5); Hematocrit 37.4 % (37-47); Hemoglobin 12.2 g/dL (12.0-15.0); Lymphocyte # 1.98 X10^3/ul (4.0); Lymphocyte % 19.3 % (19-41); Mean Corp Hgb Conc 32.6 g/dL (32-36); Mean Corpuscular Hgb 29.2 pg (27.0-32.0); Mean Corpuscular Volume 89.5 fL (81-99); Mean Platelet Vol. 9.5 fl (6.2-12.0); Monocyte# 0.98 X10^3/uL; Monocyte% 9.6 % (0-10); NRBC Flagged by Analyzer 0 % (0-5); Neutrophil # 6.96 X10^3/uL (2.7-7.7); Neutrophil % 67.8 % (47-70); Platelet Count 240 K/mm3 (150-450); Red Blood Count 4.18 M/mm3 (4.2-5.4); White Blood Count 10.3 K/mm3 (4.4-11.0)
[2020-08-17 17:41] LABS: ALB/GLOB Ratio 0.7 RATIO (0.9-2.4); AST(SGOT) 18 U/L (15-37); Alanine Aminotransfer ALT/SGPT 36 U/L (13-56); Albumin, Serum 2.8 g/dL (3.2-5.0); Alkaline Phosphatase 82 U/L (45-117); Anion Gap 7 (5-15); BUN 51 mg/dL (7-18); BUN/Creat Ratio 38.6 RATIO (10-20); Calcium,Total 8.5 mg/dL (8.5-10.1); Chloride 109 mmol/L (98-107); Creatinine, Serum 1.32 mg/dL (0.55-1.02); EST Glomerular Filtration Rate 42 mL/min (>60); Est Glom Filt Rate - Afr Amer 51 mL/min (>60); Estimated Creatinine Clearance 32.78 ml/min; Globulin 4.1 g/dL (2.2-4.2); Glucose 169 mg/dL (74-106); Potassium 4.7 mmol/L (3.5-5.1); Protein, Total 6.9 g/dL (6.4-8.2); Sodium Level 133 mmol/L (136-145)
[2020-08-17 17:49] LABS: Lactic Acid 0.6 mmol/L (0.4-1.9)
[2020-08-17 18:02] VITALS: BMI 31.8
[2020-08-17 18:03] VITALS: BP 162/58; PULSE 95; RESP 12; TEMP 37; O2SAT 98
--- NOTE | 2020-08-17 18:05 | NURSING ---
DR ENRIQUE IN ER
[2020-08-17 18:09] LABS: International Normalized Ratio 1.2; Prothrombin Time (Protime)PT. 14.5 SECONDS (11.7-14.9)
[2020-08-17 18:10] LABS: Partial Thromboplast Time 26.7 Seconds (24.1-36.2)
[2020-08-17 18:17] LABS: Erythrocyte Sedimentation Rate 37 mm/hr (0-30)
--- NOTE | 2020-08-17 18:30 | HP.PCM_ITS ---
Problem List (1) Localized edema Status: Chronic (2) Diabetic infection of left foot Status: Acute (3) Decubitus ulcer of sacral region, stage 2 Status: Resolved (4) Non-pressure chronic ulcer of other part of left foot with necrosis of muscle Status: Chronic (5) Cellulitis of left lower limb Status: Acute (6) Debility Status: Chronic (7) Diabetes mellitus type 2 in obese Status: Chronic (8) Depression Status: Chronic (9) Allergic rhinitis Status: Chronic (10) Gout Status: Chronic (11) Muscle spasm Status: Chronic (12) Insomnia Status: Chronic (13) Nonhealing surgical wound Status: Chronic Qualifiers: Encounter type: subsequent encounter Qualified Code(s): T81.89XD - Other complications of procedures, not elsewhere classified, subsequent encounter (14) Type 2 diabetes mellitus without complication Status: Chronic (15) Obesity Status: Chronic Qualifiers: Obesity type: due to excess calories Obesity classification: adult class 1 (BMI 30 - 34.9) Body mass index: BMI 31.0-31.9 (16) Vitamin D deficiency Status: Chronic (17) Ulcer of right foot with fat layer exposed Status: Chronic (18) Ulcer of right foot with necrosis of bone Status: Resolved (19) Peripheral arterial occlusive disease Status: Chronic (20) Charcot's joint of left foot Status: Chronic (21) Type 2 diabetes mellitus with diabetic polyneuropathy Status: Chronic Qualifiers: Diabetes mellitus longterm insulin use: with longterm use Qualified Code(s): E11.42 - Type 2 diabetes mellitus with diabetic polyneuropathy; Z79.4 - intermediate card tender (current) use of insulin (22) 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 Comment: Recurrent (23) Chest pain Status: Acute (24) Ulcer of abdomen wall with fat layer exposed Status: Chronic (25) History of CVA (cerebrovascular accident) Status: Chronic (26) Stented coronary artery Status: Chronic Comment: PTCA and YASIR to proximal and distal CX per Dr. Hatfield @ [facility]:(Promus Premier 4.0 X 12 mm L2 stent from distal left main into proximal LCX; Promus Premier RX 2.25 X 12 mm L1 stent in distal LCX) 12/03/2018:Triple vessel CAD of the LAD, LCX, RCA Successful PTCA/YASIR mid LCX with a 2.5 x 20 Promus Synergy stent; 85%-->0-%, no dissection. 12/24/18:FFR of RCA=0.97, negative, left for medical managemen (27) History of coronary artery bypass graft Status: Chronic Comment: CABG X 3 vessels [facility]:DANIEL to LAD, reverse SVG to dx and to 2nd OM per Dr. Borjas @ [facility] 09/09/2014 (28) Atherosclerotic heart disease of [place] coronary artery without angina pectoris Status: Chronic Qualifiers: [place] vs. transplanted heart: [place] heart Qualified Code(s): I25.10 - Atherosclerotic heart disease of [place] coronary artery without angina pectoris Comment: CABG X 3 vessels [facility]: DANIEL to LAD, reverse SVG to dx and to 2nd OM per Dr. Borjas @ [facility] 09/09/2014; PTCA/YASIR to Left main, LAD, and OM1 per Dr. Hatfield 12/21/2014; (29) History of stroke Status: Chronic (30) Carotid artery disease Status: Chronic Qualifiers: Laterality: bilateral (31) Peripheral vascular disease Status: Chronic (32) Hyperlipidemia Status: Chronic Qualifiers: (33) Coronary artery disease Status: Chronic Qualifiers: (34) Hypothyroidism Status: Chronic Qualifiers: (35) Iron deficiency anemia Status: Chronic Qualifiers: (36) GERD (gastroesophageal reflux disease) Status: Chronic History of Present Illness Date of Admission: 08/17/20 Chief Complaint: Left foot ulcer, acute on chronic in nature The patient is a 75 year old F with multiple comorbidities including diabetes mellitus type 2 with diabetic neuropathy, Charcot's joint, right transmetatarsal amputation was sent to ER from wound center for nonhealing acute on recurrent ulcer over plantar aspect of left foot. Ulcer is located over midfoot. Patient has decreased sensation over foot. There is hard, callosity skin over the lateral side of left foot. Mild purulent drainage. She denies fever, chills, nausea or vomiting. Patient uses diabetic boot. She follows wound care center but wound is not healing. Complain of worsening pain over the last 3 days. Wound culture was taken in wound clinic. Past cultures in 03/2020 from wound grew Pseudomonas aeruginosa, Streptococcus mitis, MRSE, corynebacterium and Enterococcus faecalis. Patient also has history of 3 times C. difficile infection. Vitals in the ER stable except blood pressure 162/58 one time. Basic labs in the ER reviewed. Significant abnormal labs are BUN/creatinine 51/1.32, sodium 133, glucose 169, bicarb 17, chloride 109. CRP 15.4. Albumin 2.8. Recent BUN/creatinine 47/1.63. Foot x-ray done in ED shows no acute fracture or dislocation but severe chronic midfoot arthrosis. Patient was started on IV vancomycin and Zosyn in ED and further admitted. Past Medical History Past Medical History (Chronic Problems): Chronic Problems (Last Reviewed 06/10/20 @ 21:[address] 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) Debility (Chronic) Diabetes mellitus type 2 in obese (Chronic) Depression (Chronic) Allergic rhinitis (Chronic) Gout (Chronic) Muscle spasm (Chronic) Insomnia (Chronic) Nonhealing surgical wound (Chronic) Type 2 diabetes mellitus without complication (Chronic) Obesity (Chronic) Vitamin D deficiency (Chronic) Ulcer of right foot with fat layer exposed (Chronic) Peripheral arterial occlusive disease (Chronic) Charcot's joint of left foot (Chronic) Type 2 diabetes mellitus with diabetic polyneuropathy (Chronic) Ulcer of left foot with fat layer exposed (Chronic) Recurrent Ulcer of abdomen wall with fat layer exposed (Chronic) History of CVA (cerebrovascular accident) (Chronic) Stented coronary artery (Chronic 12/03/18) PTCA and YASIR to proximal and distal CX per Dr. Hatfield @ [facility]:(Promus Premier 4.0 X 12 mm L2 stent from distal left main into proximal LCX; Promus Premier RX 2.25 X 12 mm L1 stent in distal LCX) 12/03/2018:Triple vessel CAD of the LAD, LCX, RCA Successful PTCA/YASIR mid LCX with a 2.5 x 20 Promus Synergy stent; 85%-->0-%, no dissection. 12/24/18:FFR of RCA=0.97, negative, left for medical managemen History of coronary artery bypass graft (Chronic) CABG X 3 vessels [facility]:DANIEL to LAD, reverse SVG to dx and to 2nd OM per Dr. Borjas @ [facility] 09/09/2014 Atherosclerotic heart disease of [place] coronary artery without angina pectoris (Chronic) CABG X 3 vessels [facility]: DANIEL to LAD, reverse SVG to dx and to 2nd OM per Dr. Borjas @ [facility] 09/09/2014; PTCA/YASIR to Left main, LAD, and OM1 per Dr. Hatfield 12/21/2014; History of stroke (Chronic) Carotid artery disease (Chronic) Peripheral vascular disease (Chronic) Hyperlipidemia (Chronic) Coronary artery disease (Chronic) Hypothyroidism (Chronic) Iron deficiency anemia (Chronic) GERD (gastroesophageal reflux disease) (Chronic) Medical History: Medical History (Last Reviewed 06/10/20 @ 21:[address] Judson Massey MD) Type 2 diabetes mellitus without complication (Chronic) E11.9 Obesity (Chronic) E66.9 Vitamin D deficiency (Chronic) E55.9 Ulcer of right foot with fat layer exposed (Chronic) L97.512 Ulcer of right foot with necrosis of bone (Resolved) L97.514 Peripheral arterial occlusive disease (Chronic) I77.9 Charcot's joint of left foot (Chronic) M14.672 Type 2 diabetes mellitus with diabetic polyneuropathy (Chronic) E11.42 Ulcer of left foot with fat layer exposed (Chronic) L97.522 Recurrent Chest pain (Acute) R07.9 Ulcer of abdomen wall with fat layer exposed (Chronic) L98.492 History of CVA (cerebrovascular accident) (Chronic) Z86.73 Atherosclerotic heart disease of [place] coronary artery without angina pectoris (Chronic) I25.10 CABG X 3 vessels [facility]: DANIEL to LAD, reverse SVG to dx and to 2nd OM per Dr. Borjas @ [facility] 09/09/2014; PTCA/YASIR to Left main, LAD, and OM1 per Dr. Hatfield 12/21/2014; History of stroke (Chronic) Z86.73 Carotid artery disease (Chronic) I77.9 Peripheral vascular disease (Chronic) I73.9 Hyperlipidemia (Chronic) E78.5 Coronary artery disease (Chronic) I25.10 Hypothyroidism (Chronic) E03.9 Iron deficiency anemia (Chronic) D50.9 GERD (gastroesophageal reflux disease) (Chronic) K21.9 Carpal tunnel syndrome G56.00 Essential hypertension I10 Gout M10.9 History of blood clots Z86.718 History of blood transfusion Z92.89 IBS (irritable bowel syndrome) K58.9 Neuropathy G62.9 Osteoporosis M81.0 Allergies doxycycline Allergy (Severe, Verified 08/17/20 15:19) all over body hives and itching atorvastatin calcium [From Lipitor] Allergy (Verified 08/17/20 15:19) Unknown bupropion HCl [From Wellbutrin] Allergy (Verified 08/17/20 15:19) Unknown mannitol [From Reclast] Allergy (Verified 08/17/20 15:19) joint pain, unable to breathe, unable to walk propoxyphene napsylate [From Darvocet-N 100] Allergy (Verified 08/17/20 15:19) Unknown Quinolones Allergy (Verified 08/17/20 15:19) Unknown Tetanus Vaccines and Toxoid [Tetanus Vaccines & Toxoid] Allergy (Verified 08/17/20 15:19) Chest tightness tizanidine Allergy (Verified 08/17/20 15:19) Unknown zoledronic acid [From Reclast] Allergy (Verified 08/17/20 15:19) joint pain,unable to breathe, unaable to walk JOINT PAIN,UNABLE TO BREATHE,UNABLE TO WALK pravastatin Adverse Reaction (Severe, Verified 08/17/20 15:19) Myalgias gemfibrozil Adverse Reaction (Intermediate, Verified 08/17/20 15:19) Unknown NSAIDS (Non-Steroidal Anti-Inflamma Adverse Reaction (Verified 08/17/20 15:19) Other Home Medications: Ambulatory Orders Medication Instructions Recorded Pravastatin Sodium 40 mg PO QHS 03/10/17 amlodipine 5 mg tablet 5 mg PO DAILY tab 05/05/18 Esomeprazole Magnesium 20 mg PO DAILY 09/21/19 clopidogrel 75 mg tablet 75 mg PO DAILY #90 tab 11/23/19 Allopurinol 100 mg PO DAILY 03/17/20 Calcium Citrate 200 mg PO BID #0 03/17/20 insulin detemir U-100 100 unit/mL 34 unit SC BID ml 03/24/20 (3 mL) subcutaneous pen aspirin 81 mg tablet,delayed 81 mg PO DAILY 04/05/20 release cbd 1 dose PO 4X/DAY PRN 04/05/20 [id number] 1 cap PO BID cap 04/05/20 24,000-76,000-120,000 unit capsule,delayed rel Menthol/Lanolin/Calamine/Znox 1 applic TOPICAL TID 11/24/20 [Calmoseptine Ointment] Acetaminophen [Tylenol] 1,000 mg PO Q6H PRN PRN tab 04/25/20 Nitroglycerin (INPATIENT USE) 0.4 mg SUBLINGUAL Q5M PRN tab.subl 04/25/20 [Nitrostat] Carvedilol 25 mg PO BID 08/17/20 Insulin Aspart [Novolog Flexpen] 12 units SQ TIDCM 08/17/20 Isosorbide Mononitrate [Isosorbide 60 mg PO DAILY 08/17/20 Mononitrate ER] Isosorbide Mononitrate [Isosorbide 120 mg PO DAILY 08/17/20 Mononitrate ER] Levothyroxine Sodium 75 mcg PO QHS 08/17/20 Linaclotide [Linzess] 72 mcg PO DAILY 08/17/20 Lisinopril 10 mg PO DAILY 08/17/20 Melatonin 6 mg PO QHS 08/17/20 Metoclopramide HCl 10 mg PO Q8H PRN 08/17/20 Morphine Sulfate 3 ml PO Q6H PRN PRN 08/17/20 Multivitamin/Iron/Folic Acid [Cvs 0.5 tablet PO BID 08/17/20 Spectravite Ultra Women Tb] Nutritional Supplement [Blue - 1 packet PO BIDCM 08/17/20 ORANGE FLAVOR] Tizanidine HCl 4 mg PO Q8H PRN 08/17/20 Trazodone HCl 100 mg PO QHS PRN 08/17/20 Tryptophan [l-Tryptophan] 500 mg PO DINNER 08/17/20 Venlafaxine HCl 100 mg PO BID 08/17/20 Wheat Dextrin [Benefiber] 15 ml PO DAILY 08/17/20 Surgical History: Surgical History (Last Reviewed 06/10/20 @ 21:[address] Judson Massey MD) Stented coronary artery (Chronic) Onset Date: 12/03/18 Z95.5 PTCA and YASIR to proximal and distal CX per Dr. Hatfield @ [facility]:(Promus Premier 4.0 X 12 mm L2 stent from distal left main into proximal LCX; Promus Premier RX 2.25 X 12 mm L1 stent in distal LCX) 12/03/2018:Triple vessel CAD of the LAD, LCX, RCA Successful PTCA/YASIR mid LCX with a 2.5 x 20 Promus Synergy stent; 85%-->0-%, no dissection. 12/24/18:FFR of RCA=0.97, negative, left for medical managemen History of coronary artery bypass graft (Chronic) Z95.1 CABG X 3 vessels [facility]:DANIEL to LAD, reverse SVG to dx and to 2nd OM per Dr. Borjas @ [facility] 09/09/2014 History of gastric bypass Z98.84 History of ventral hernia repair Z98.890, Z87.19 History of excision of lesion Z98.890, Z87.2 Surgical preparation supraumbilical area in previous scar with excision nonhealing ulcer and 16 cm complex secondary wound closure - 03/07/20 History of gastric bypass (Inactive) Z98.84 History of left heart catheterization (Inactive) Z98.890 CABG X 3 vessels [facility]:DANIEL to LAD, reverse SVG to dx and to 2nd OM per Dr. Borjas @ [facility] 09/09/2014; PTCA andDES to proximal and distal CX per Dr. Hatfield 12/21/2014; Hx of ventral hernia repair (Inactive) Z98.890, Z87.19 with mesh 20 years ago Surgical History: angioplasty - Stent., appendectomy, coronary bypass surgery, gastric bypass, tonsillectomy, - - , Carpal tunnel release, cardiac catheterization, carotid endarterectomy, right foot transmetatarsal amputation, exostectomy left foot Psychiatric History: Anxiety, Depression [employer] DRAWER History: No pertinent [employer]RAWER history Smoking Status: Never smoker - *Family History Paternal Family History: Family History (Last Reviewed 06/10/20 @ 21:[address] Judson Massey MD) Mother Cancer CVA (cerebral vascular accident) CAD (coronary artery disease) Father CAD (coronary artery disease) History of coronary artery bypass graft Sister CAD (coronary artery disease) Multiple sclerosis Other Anxiety Bleeding disorder Depression Diabetes Heart disease High cholesterol Hypertension History Items: No pertinent history Maternal Family History: Family History (Last Reviewed 06/10/20 @ 21:[address] Judson Massey MD) Mother Cancer CVA (cerebral vascular accident) CAD (coronary artery disease) Father CAD (coronary artery disease) History of coronary artery bypass graft Sister CAD (coronary artery disease) Multiple sclerosis Other Anxiety Bleeding disorder Depression Diabetes Heart disease High cholesterol Hypertension History Items: No pertinent history Review of Systems Constitutional: Denies: Chills, Fever, Weight Change HEENT: Denies: Head Aches, Sinus Congestion, Sinus Drainage Cardiovascular: Denies: Chest Pain, Palpitations Respiratory: Denies: Cough, Shortness of breath at rest, Sputum production Gastrointestinal: Denies: Abdominal Pain, Nausea, Vomiting Genitourinary: Denies: Dysuria, Frequency Musculoskeletal: Reports: Joint Pain, Leg Pain, Muscle pain. Denies: Joint Tenderness Skin: Reports: Rash, Wounds Neurological: Reports: Balance problems, Incoordination. Denies: Focal weakness, Numbness, Tingling Psychiatric: Reports: Anxiety, Depression. Denies: Homicidal Ideations, Suicidal Ideations Hematologic/ Lymphatic: Reports: Easy Bruising. Denies: Easy Bleeding VTE Information - Inpt Only VTE Present on Admission: No VTE Mechan Device Prophylaxis: None VTE Pharm Prophylaxis ordered?: Yes Patient Problems: Active and Suspected Problems (Last Reviewed 06/10/20 @ 21:[address] Judson Massey MD) Diabetic infection of left foot (Acute) Cellulitis of left lower limb (Acute) Chest pain (Acute) Objective: General: Alert, Oriented x3, Cooperative HEENT: Atraumatic, PERRLA, EOMI, Normocephalic Oral: No Gingival or Mucosal Lesions/ Ulcerations Neck: Supple, No JVD, Negative Carotid Bruits Lungs: Air entry diminished in bilateral lung bases. No crepitation/rhonchi. No tachypnea or hypoxia Cardiovascular: Regular rate, Regular Rhythm, Normal S1, Normal S2, No murmurs Abdomen: Bowel Sounds Present, Soft, Non Tender, Non-Distended : No renal angle tenderness. No suprapubic tenderness. Extremities: No edema, Capillary Refill Less than 3 Seconds Skin: Small, chronic, nonhealing ulcer over plantar aspect of left midfoot. Callus over lateral aspect of left foot. Mild redness, tenderness and erythema over left foot and left lower leg. Musculoskeletal: Right MTA amputation. Charcot's joint of left foot. Neurological: Decreased sensation over plantar aspect of both feet. Cranial nerves II-XII grossly intact, Deep Tendon Reflexes 2+/4. Psych/Mental Status: Depression. - Physical Exam Vitals/I&O's: Vital Signs Temp Pulse Resp BP Pulse Ox 98.6 F 95 12 162/58 H 98 03/24/21 18:03 08/17/20 18:03 08/17/20 18:03 08/17/20 18:03 08/17/20 18:03 Oxygen Delivery Method Room Air Weight: 185 lb Body Mass Index (BMI) 31.7 Finger Stick Blood Glucose 193 Intake and Output for Last 24 Hours 08/15/20 08/16/20 08/17/20 23:59 23:59 23:59 Intake Total 100 / 100 Balance 100 / 100 Laboratory Results 08/17/20 16:50: WBC 10.3, RBC 4.18 L, Hgb 12.2, Hct 37.4, MCV 89.5, MCH 29.2, MCHC 32.6, RDW Std Deviation 49.0 H, RDW Coeff of Marco 15.0 H, Plt Count 240, MPV 9.5, Immature Gran % (Auto) 0.700, Neut % (Auto) 67.8, Lymph % (Auto) 19.3, [place] % (Auto) 9.6, Eos % (Auto) 2.3, Baso % (Auto) 0.3, Absolute Neuts (auto) 7.0, Absolute Lymphs (auto) 1.98, Nucleated RBC % 0, ESR 37 H 08/17/20 16:50: PT 14.5, INR 1.2, APTT 26.7 08/17/20 16:50: Sodium 133 L, Potassium 4.7, Chloride 109 H, Carbon Dioxide 17.0 L, Anion Gap 7, BUN 51 H, Creatinine 1.32 H, Estim Creat Clear Calc 32.78, Est GFR (MDRD) Af Amer 51 L, Est GFR (MDRD) Non-Af 42 L, BUN/Creatinine Ratio 38.6 H , Glucose 169 H, Calcium 8.5, Total Bilirubin 0.20, AST 18, ALT 36, Alkaline Phosphatase 82, C-React Prot Ext Range 18.40 H, Total Protein 6.9, Albumin 2.8 L , Globulin 4.1, Albumin/Globulin Ratio 0.7 L 08/17/20 16:50: Lactic Acid 0.6 Current Medications Sodium Chloride () 1,000 mls @ 150 mls/hr IV .Q6H40M SHAHBAZ Last Admin: 08/17/20 17:16 Dose: 150 mls/hr Documented by: Assessment/Plan All Active Problems (Last Reviewed 06/10/20 @ 21:[address] Judson Massey MD) Diabetic infection of left foot (Acute) Cellulitis of left lower limb (Acute) Ulcer of right foot with necrosis of bone (Resolved) Chest pain (Acute) Decubitus ulcer of sacral region, stage 2 (Resolved) The patient is a 75 year old F with multiple comorbidities including diabetes mellitus type 2 with diabetic neuropathy, Charcot's joint, right transmetatarsal amputation was sent to ER from wound center for nonhealing acute on recurrent ulcer over plantar aspect of left foot Basic labs in the ER reviewed. Significant abnormal labs are BUN/creatinine 51/1.32, sodium 133, glucose 169, bicarb 17, chloride 109. CRP 15.4. Albumin 2.8. Recent BUN/creatinine 47/1.63. Foot x-ray done in ED shows no acute fracture or dislocation but severe chronic midfoot arthrosis. 1. Acute on recurrent/chronic nonhealing ulcer of left midfoot with history of diabetes mellitus type 2 complicated with neuropathy and Charcot joint. Patient is being admitted to MedSurg floor. IV fluid normal saline for 1 L. IV antibiotics vancomycin and Zosyn. Follow-up wound culture done in wound clinic and blood culture. On probiotic as she has history of 3 times C. difficile colitis. 2. Diabetes mellitus type 2 on short acting and long-acting insulin at home: Accu-Chek is in his coverage and low sliding scale along with glargine and Humalog insulin. Titrate the insulin as per Accu-Cheks. A1c tomorrow a.m. 3. CAD with history of CABG and stents-continue Plavix, statin, carvedilol, isosorbide mononitrate. 4. Chronic kidney disease stage IV most probably due to diabetic nephropathy, hypertension and cardiorenal disease: Monitor electrolytes, kidney function, intake and output. 5 Peripheral arterial disease, CVA and stroke: Continue medications as mentioned above 6. Hypertension-stable, continue Norvasc, Coreg, nitrate. 7. GERD-continue PPI. 8. Hypothyroidism-continue Synthroid. TSH and free T4 a.m. tomorrow 9. Chronic microcytic iron deficiency anemia-H&H is stable actually better than previous 1. H&H 12.2/37.4 today. DVT prophylaxis-Lovenox 30 mg subcu daily adjusted to creatinine clearance Living will/advanced directive/end of life care: Patient does have living will or advanced directive, scanned in EMR; reviewed. Her [id number] [place] Barrera power of tax associate attorney for health. After discussion of benefits/risks procedures involved with full code, DNR CC arrest and DNR CC, the patient opted for DNR-CC Arrest with no intubation Patient does not want artificial life support including intubation, tube feed, ventilator and/chest compression, central venous catheter, vasopressor and DC shock if needed Total time spent in [id number] encounter in discussion of advanced directive 16 minutes. Clinical Impression(s) from Imaging Studies Foot X-Ray 08/17/20 15:42 IMPRESSION: 1. No acute fracture or dislocation. 2. Severe midfoot arthrosis. Inpatient E&M: 86169 Init Hosp L3 Procedures: 32938 Advncd Care Plan 30 Min
[2020-08-17 19:24] VITALS: BMI 29.0
[2020-08-17 19:27] VITALS: BP 138/51; PULSE 82; RESP 16; TEMP 36.9; O2SAT 99
--- NOTE | 2020-08-17 20:17 | PCM.RX.CS ---
Consult Pharmacy has been consulted to manage selected antiobiotic: Vancomycin Type of Consult: New start Suspected Infection: Skin/Soft tissue Labs: Sodium 133 mmol/L (136-145) L 08/17/20 16:50 Potassium 4.7 mmol/L (3.5-5.1) 08/17/20 16:50 Chloride 109 mmol/L (98-107) H 08/17/20 16:50 Carbon Dioxide 17.0 mmol/L (21.0-32.0) L 08/17/20 16:50 Anion Gap 7 (5-15) 08/17/20 16:50 BUN 51 mg/dL (7-18) H 08/17/20 16:50 Creatinine 1.32 mg/dL (0.55-1.02) H 08/17/20 16:50 Est GFR (MDRD) Af Amer 51 mL/min (>60) L 08/17/20 16:50 Est GFR (MDRD) Non-Af 42 mL/min (>60) L 08/17/20 16:50 BUN/Creatinine Ratio 38.6 RATIO (10-20) H 08/17/20 16:50 Glucose 169 mg/dL (74-106) H 08/17/20 16:50 Goal Trough: 15-20 mcg/mL Pharmacy Plan for Drug Dosing: NEW START IV VANCOMYCIN Consulting Physician: Dr. Willson Indication: Diabetic foot infection Goal Trough: 15-20 SrCr: 1.32 CrCl: 33 mL/min Comments: 2000mg IV x1 administered in ED 08/17 @1759 Vancomcyin Dose: 1000mg IV Q24hr to start 08/18/20 @1800 Pending Level: 08/19/20 @1730, prior to 4th total dose per protocol. Pharmacy Service will continue to monitor and adjust dosing as required.
[2020-08-17] MEDS: 0.9% Normal Saline 1,000 ML 75 ML IV (20:31)
[2020-08-17 20:42] LABS: Phosphorus 4.1 mg/dL (2.5-4.9); Prealbumin 20.6 mg/dL (20.0-40.0)
[2020-08-17] MEDS: Menthol/Lanolin/Calamine/Znox 113 GM Tube 1 APPLIC TOPICAL (22:44)
[2020-08-17] MEDS: Isosorbide Mononitrate 60 MG Tablet 120 MG PO (22:44)
[2020-08-17] MEDS: Levothyroxine 75 MCG Tablet PO (22:45)
[2020-08-17] MEDS: Carvedilol 25 MG Tablet PO (22:46)
[2020-08-17] MEDS: Pravastatin 40 MG Tablet PO (22:47)
[2020-08-17] MEDS: Insulin Lispro 100 UNIT/ML INSULN.PEN SC (22:48)
[2020-08-17 23:00] VITALS: BP 132/59; PULSE 95; RESP 18; TEMP 36.8; O2SAT 97
[2020-08-17] MEDS: traZODone 100 MG Tablet PO (23:06)
[2020-08-17] MEDS: Morphine 2 MG/ML Syringe IV (23:12)
[2020-08-18 00:30] LABS: Bedside Glucose 333 mg/dL (70-110)
[2020-08-18 02:59] VITALS: BP 106/45; PULSE 74; RESP 18; TEMP 37.2; O2SAT 97
[2020-08-18 04:58] LABS: M R Staph aureus DNA By PCR Negative (Negative); Probe Check PASS; Specimen Processing Control PASS; Staph aureus DNA By PCR NEGATIVE (Negative)
[2020-08-18 07:04] VITALS: O2SAT 97
[2020-08-18 07:12] LABS: Absolute Lymphocyte Count 1.91 X10^3/uL (0.83-4.51); Absolute Neutrophil Count 5.5 X10^3/uL (2.0-7.7); Basophil# 0.05 X10^3/uL; Basophil% 0.6 % (0-1); Eosinophil# 0.23 X10^3/uL; Eosinophils% 2.7 % (0-5); Hematocrit 35.8 % (37-47); Hemoglobin 11.7 g/dL (12.0-15.0); Lymphocyte # 1.91 X10^3/ul (4.0); Lymphocyte % 22.1 % (19-41); Mean Corp Hgb Conc 32.7 g/dL (32-36); Mean Corpuscular Volume 88.6 fL (81-99); Mean Platelet Vol. 9.2 fl (6.2-12.0); Monocyte# 0.85 X10^3/uL; Monocyte% 9.8 % (0-10); NRBC Flagged by Analyzer 0 % (0-5); Neutrophil # 5.53 X10^3/uL (2.7-7.7); Neutrophil % 64.1 % (47-70); Platelet Count 222 K/mm3 (150-450); RBC Distribution Width CV 14.8 % (11.6-14.6); RBC Distribution Width SD 48.1 fl (35.1-43.9); Red Blood Count 4.04 M/mm3 (4.2-5.4); White Blood Count 8.6 K/mm3 (4.4-11.0)
--- NOTE | 2020-08-18 07:25 | PCM.CONS.GEN ---
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 abscess left foot. left foot ulcer History of Present Illness: The patient is a 75 year old F who presents from the wound care center where she is being treated for a left plantar foot wound by Dr. Magana. She has history of charcot foot with deformity. She wears a [place] boot for ambulation. She has had surgery on this foot in the past due to the deformity. She has had wounds with infections to his foot in the past as well. She relates having increase in pain to her left foot couple days ago. Patient was that she generally has no feeling in her feet due to neuropathy. Patient was sent from the wound care center to the emergency room for further work-up. Patient had cultures obtained at the wound care center. She relates that there was an abscess with some pus drained out of it at the wound care center. Patient is diabetic. Patient relates she is feeling better without any nausea fever vomiting chills chest pain shortness of breath currently. She still having pain to her left foot. [] Past Medical History Past Medical History (Chronic Problems): Chronic Problems (Last Reviewed 06/10/20 @ 21:[address] 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) Debility (Chronic) Diabetes mellitus type 2 in obese (Chronic) Depression (Chronic) Allergic rhinitis (Chronic) Gout (Chronic) Muscle spasm (Chronic) Insomnia (Chronic) Nonhealing surgical wound (Chronic) Type 2 diabetes mellitus without complication (Chronic) Obesity (Chronic) Vitamin D deficiency (Chronic) Ulcer of right foot with fat layer exposed (Chronic) Peripheral arterial occlusive disease (Chronic) Charcot's joint of left foot (Chronic) Type 2 diabetes mellitus with diabetic polyneuropathy (Chronic) Ulcer of left foot with fat layer exposed (Chronic) Recurrent Ulcer of abdomen wall with fat layer exposed (Chronic) History of CVA (cerebrovascular accident) (Chronic) Stented coronary artery (Chronic 12/03/18) PTCA and YASIR to proximal and distal CX per Dr. Hatfield @ [facility]:(Promus Premier 4.0 X 12 mm L2 stent from distal left main into proximal LCX; Promus Premier RX 2.25 X 12 mm L1 stent in distal LCX) 12/03/2018:Triple vessel CAD of the LAD, LCX, RCA Successful PTCA/YASIR mid LCX with a 2.5 x 20 Promus Synergy stent; 85%-->0-%, no dissection. 12/24/18:FFR of RCA=0.97, negative, left for medical managemen History of coronary artery bypass graft (Chronic) CABG X 3 vessels [facility]:DANIEL to LAD, reverse SVG to dx and to 2nd OM per Dr. Borjas @ [facility] 09/09/2014 Atherosclerotic heart disease of [place] coronary artery without angina pectoris (Chronic) CABG X 3 vessels [facility]: DANIEL to LAD, reverse SVG to dx and to 2nd OM per Dr. Borjas @ [facility] 09/09/2014; PTCA/YASIR to Left main, LAD, and OM1 per Dr. Hatfield 12/21/2014; History of stroke (Chronic) Carotid artery disease (Chronic) Peripheral vascular disease (Chronic) Hyperlipidemia (Chronic) Coronary artery disease (Chronic) Hypothyroidism (Chronic) Iron deficiency anemia (Chronic) GERD (gastroesophageal reflux disease) (Chronic) Medical History: Medical History (Last Reviewed 06/10/20 @ 21:[address] Judson Massey MD) Type 2 diabetes mellitus without complication (Chronic) E11.9 Obesity (Chronic) E66.9 Vitamin D deficiency (Chronic) E55.9 Ulcer of right foot with fat layer exposed (Chronic) L97.512 Ulcer of right foot with necrosis of bone (Resolved) L97.514 Peripheral arterial occlusive disease (Chronic) I77.9 Charcot's joint of left foot (Chronic) M14.672 Type 2 diabetes mellitus with diabetic polyneuropathy (Chronic) E11.42 Ulcer of left foot with fat layer exposed (Chronic) L97.522 Recurrent Chest pain (Acute) R07.9 Ulcer of abdomen wall with fat layer exposed (Chronic) L98.492 History of CVA (cerebrovascular accident) (Chronic) Z86.73 Atherosclerotic heart disease of [place] coronary artery without angina pectoris (Chronic) I25.10 CABG X 3 vessels [facility]: DANIEL to LAD, reverse SVG to dx and to 2nd OM per Dr. Borjas @ [facility] 09/09/2014; PTCA/YASIR to Left main, LAD, and OM1 per Dr. Hatfield 12/21/2014; History of stroke (Chronic) Z86.73 Carotid artery disease (Chronic) I77.9 Peripheral vascular disease (Chronic) I73.9 Hyperlipidemia (Chronic) E78.5 Coronary artery disease (Chronic) I25.10 Hypothyroidism (Chronic) E03.9 Iron deficiency anemia (Chronic) D50.9 GERD (gastroesophageal reflux disease) (Chronic) K21.9 Carpal tunnel syndrome G56.00 Essential hypertension I10 Gout M10.9 History of blood clots Z86.718 History of blood transfusion Z92.89 IBS (irritable bowel syndrome) K58.9 Neuropathy G62.9 Osteoporosis M81.0 Allergies doxycycline Allergy (Severe, Verified 08/17/20 15:19) all over body hives and itching atorvastatin calcium [From Lipitor] Allergy (Verified 08/17/20 15:19) Unknown bupropion HCl [From Wellbutrin] Allergy (Verified 08/17/20 15:19) Unknown mannitol [From Reclast] Allergy (Verified 08/17/20 15:19) joint pain, unable to breathe, unable to walk propoxyphene napsylate [From Darvocet-N 100] Allergy (Verified 08/17/20 15:19) Unknown Quinolones Allergy (Verified 08/17/20 15:19) Unknown Tetanus Vaccines and Toxoid [Tetanus Vaccines & Toxoid] Allergy (Verified 08/17/20 15:19) Chest tightness tizanidine Allergy (Verified 08/17/20 15:19) Unknown zoledronic acid [From Reclast] Allergy (Verified 08/17/20 15:19) joint pain,unable to breathe, unaable to walk JOINT PAIN,UNABLE TO BREATHE,UNABLE TO WALK pravastatin Adverse Reaction (Severe, Verified 08/17/20 15:19) Myalgias gemfibrozil Adverse Reaction (Intermediate, Verified 08/17/20 15:19) Unknown NSAIDS (Non-Steroidal Anti-Inflamma Adverse Reaction (Verified 08/17/20 15:19) Other Home Medications: Ambulatory Orders Medication Instructions Recorded Pravastatin Sodium 40 mg PO QHS 03/10/17 amlodipine 5 mg tablet 5 mg PO DAILY tab 05/05/18 Esomeprazole Magnesium 20 mg PO DAILY 09/21/19 clopidogrel 75 mg tablet 75 mg PO DAILY #90 tab 11/23/19 Allopurinol 100 mg PO DAILY 03/17/20 Calcium Citrate 200 mg PO BID #0 03/17/20 insulin detemir U-100 100 unit/mL 34 unit SC BID ml 03/24/20 (3 mL) subcutaneous pen aspirin 81 mg tablet,delayed 81 mg PO DAILY 04/05/20 release cbd 1 dose PO 4X/DAY PRN 04/05/20 [id number] 1 cap PO BID cap 04/05/20 24,000-76,000-120,000 unit capsule,delayed rel Menthol/Lanolin/Calamine/Znox 1 applic TOPICAL TID 04/19/20 [Calmoseptine Ointment] Acetaminophen [Tylenol] 1,000 mg PO Q6H PRN PRN tab 04/25/20 Nitroglycerin (INPATIENT USE) 0.4 mg SUBLINGUAL Q5M PRN tab.subl 04/25/20 [Nitrostat] Carvedilol 25 mg PO BID 08/17/20 Insulin Aspart [Novolog Flexpen] 12 units SQ TIDCM 08/17/20 Isosorbide Mononitrate [Isosorbide 60 mg PO DAILY 08/17/20 Mononitrate ER] Isosorbide Mononitrate [Isosorbide 120 mg PO DAILY 08/17/20 Mononitrate ER] Levothyroxine Sodium 75 mcg PO QHS 08/17/20 Linaclotide [Linzess] 72 mcg PO DAILY 08/17/20 Lisinopril 10 mg PO DAILY 08/17/20 Melatonin 6 mg PO QHS 08/17/20 Metoclopramide HCl 10 mg PO Q8H PRN 08/17/20 Morphine Sulfate 3 ml PO Q6H PRN PRN 08/17/20 Multivitamin/Iron/Folic Acid [Cvs 0.5 tablet PO BID 08/17/20 Spectravite Ultra Women Tb] Nutritional Supplement [Blue - 1 packet PO BIDCM 08/17/20 ORANGE FLAVOR] Tizanidine HCl 4 mg PO Q8H PRN 08/17/20 Trazodone HCl 100 mg PO QHS PRN 08/17/20 Tryptophan [l-Tryptophan] 500 mg PO DINNER 08/17/20 Venlafaxine HCl 100 mg PO BID 08/17/20 Wheat Dextrin [Benefiber] 15 ml PO DAILY 08/17/20 Surgical History: Surgical History (Last Reviewed 06/10/20 @ 21:[address] Judson Massey MD) Stented coronary artery (Chronic) Onset Date: 12/03/18 Z95.5 PTCA and YASIR to proximal and distal CX per Dr. Hatfield @ [facility]:(Promus Premier 4.0 X 12 mm L2 stent from distal left main into proximal LCX; Promus Premier RX 2.25 X 12 mm L1 stent in distal LCX) 12/03/2018:Triple vessel CAD of the LAD, LCX, RCA Successful PTCA/YASIR mid LCX with a 2.5 x 20 Promus Synergy stent; 85%-->0-%, no dissection. 12/24/18:FFR of RCA=0.97, negative, left for medical managemen History of coronary artery bypass graft (Chronic) Z95.1 CABG X 3 vessels [facility]:DANIEL to LAD, reverse SVG to dx and to 2nd OM per Dr. Borjas @ [facility] 09/09/2014 History of gastric bypass Z98.84 History of ventral hernia repair Z98.890, Z87.19 History of excision of lesion Z98.890, Z87.2 Surgical preparation supraumbilical area in previous scar with excision nonhealing ulcer and 16 cm complex secondary wound closure - 03/07/20 History of gastric bypass (Inactive) Z98.84 History of left heart catheterization (Inactive) Z98.890 CABG X 3 vessels [facility]:DANIEL to LAD, reverse SVG to dx and to 2nd OM per Dr. Borjas @ [facility] 09/09/2014; PTCA andDES to proximal and distal CX per Dr. 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 Judson Massey MD) Mother Cancer CVA (cerebral vascular accident) CAD (coronary artery disease) Father CAD (coronary artery disease) History of coronary artery bypass graft Sister CAD (coronary artery disease) Multiple sclerosis Other Anxiety Bleeding disorder Depression Diabetes Heart disease High cholesterol Hypertension History Items: No pertinent history Maternal Family History: Family History (Last Reviewed 06/10/20 @ 21:[address] Judson Massey MD) Mother Cancer CVA (cerebral vascular accident) CAD (coronary artery disease) Father CAD (coronary artery disease) History of coronary artery bypass graft Sister CAD (coronary artery disease) Multiple sclerosis Other Anxiety Bleeding disorder Depression Diabetes Heart disease High cholesterol Hypertension History Items: No pertinent history Review of Systems Constitutional: Denies: Chills, Fever HEENT: Denies: Hard of Hearing Cardiovascular: Reports: Edema - Left plantar foot. Denies: Chest Pain Respiratory: Denies: Cough, Shortness of Breath Musculoskeletal: Reports: Foot Pain - Left Skin: Reports: Wounds - Left foot Neurological: Reports: Numbness, Tingling Patient Problems: Active and Suspected Problems (Last Reviewed 06/10/20 @ 21:[address] Judson Massey MD) Diabetic infection of left foot (Acute) Abscess of left foot (Acute) Cellulitis of left lower limb (Acute) Chest pain (Acute) - Physical Exam Vitals/I&O's: Vital Signs Temp Pulse Resp BP Pulse Ox 98.9 F 74 18 106/45 L 97 08/18/20 02:59 08/18/20 02:59 08/18/20 02:59 08/18/20 02:59 08/18/20 07:04 Oxygen Delivery Method Room Air Weight: 76.9 kg Body Mass Index (BMI) 29.0 Finger Stick Blood Glucose 193 Intake and Output for Last 24 Hours 08/16/20 08/17/20 08/18/20 23:59 23:59 23:59 Intake Total 1125 / 1125 500 / 500 Output Total 1500 / 1500 Balance 1125 / 525 -1000 / -1000 General: Alert, Oriented x3 HEENT: Atraumatic Extremities: No clubbing, No cyanosis, Capillary Refill Less than 3 Seconds, No Calf Tenderness, Diminished Peripheral Pulses, Edema - Plantar foot, Tenderness - Plantar left foot Skin: Ulcer/ Wound - Plantar left foot wound cluster. There is no malodor, further purulent drainage expressed from the wound, does not probe to bone. Surrounding erythema and edema. There is area of fluctuation concerning for abscess to the central plantar foot. There is pain on palpation to the site. Musculoskeletal: - - Charcot foot deformity left foot Neurological: - - Decrease in epicritic sensation consistent with neuropathy Psych/Mental Status: Normal Affect, Appropriate Laboratory Results 08/17/20 16:50: WBC 10.3, RBC 4.18 L, Hgb 12.2, Hct 37.4, MCV 89.5, MCH 29.2, MCHC 32.6, RDW Std Deviation 49.0 H, RDW Coeff of Marco 15.0 H, Plt Count 240, MPV 9.5, Immature Gran % (Auto) 0.700, Neut % (Auto) 67.8, Lymph % (Auto) 19.3, [place] % (Auto) 9.6, Eos % (Auto) 2.3, Baso % (Auto) 0.3, Absolute Neuts (auto) 7.0, Absolute Lymphs (auto) 1.98, Nucleated RBC % 0, ESR 37 H 08/17/20 16:50: PT 14.5, INR 1.2, APTT 26.7 08/17/20 16:50: Sodium 133 L, Potassium 4.7, Chloride 109 H, Carbon Dioxide 17.0 L, Anion Gap 7, BUN 51 H, Creatinine 1.32 H, Estim Creat Clear Calc 32.78, Est GFR (MDRD) Af Amer 51 L, Est GFR (MDRD) Non-Af 42 L, BUN/Creatinine Ratio 38.6 H, Glucose 169 H, Calcium 8.5, Total Bilirubin 0.20, AST 18, ALT 36, Alkaline Phosphatase 82, C-React Prot Ext Range 18.40 H, Total Protein 6.9, Albumin 2.8 L, Globulin 4.1, Albumin/Globulin Ratio 0.7 L 08/17/20 16:50: Lactic Acid 0.6 08/17/20 16:50: Phosphorus 4.1, Prealbumin 20.6 08/17/20 22:41: POC Glucose 333 H 08/18/20 03:00: S.aureus Protein A PCR NEGATIVE, MRSA (PCR) Negative 08/18/20 06:25: WBC 8.6, RBC 4.04 L, Hgb 11.7 L, Hct 35.8 L, MCV 88.6, MCH 29.0, MCHC 32.7, RDW Std Deviation 48.1 H, RDW Coeff of Marco 14.8 H, Plt Count 222, MPV 9.2, Immature Gran % (Auto) 0.700, Neut % (Auto) 64.1, Lymph % (Auto) 22.1, [place] % (Auto) 9.8, Eos % (Auto) 2.7, Baso % (Auto) 0.6, Absolute Neuts (auto) 5.5, Absolute Lymphs (auto) 1.91, Nucleated RBC % 0 08/18/20 06:25: Sodium Pending, Potassium Pending, Chloride Pending, Carbon Dioxide Pending, Anion Gap Pending, BUN Pending, Creatinine Pending, Est GFR (MDRD) Af Amer Pending, Est GFR (MDRD) Non-Af Pending, BUN/Creatinine Ratio Pending, Glucose Pending, Calcium Pending, TSH Pending, Free T4 Pending Current Medications Acetaminophen (Acetaminophen 325 Mg Tablet) 650 mg PO Q6H PRN PRN PRN Reason: Pain Score 1-10 /Temp>100.7 Allopurinol (Allopurinol 100 Mg Tablet) 100 mg PO DAILY [facility] Amlodipine Besylate (Amlodipine 5 Mg Tablet) 5 mg PO DAILY [facility] Aspirin (Aspirin E.C. 81 Mg Tablet) [facility] Bisacodyl (Bisacodyl 5 Mg Tablet) 10 mg PO DAILY PRN PRN PRN Reason: Constipation Calamine/Phenol (Menthol/Lanolin/Calamine/Znox 113 Gm Tube) 1 applic TOPICAL TID [facility]; Protocol Last Admin: 08/18/20 05:54 Dose: Not Given Documented by: Carvedilol (Carvedilol 25 Mg Tablet) 25 mg PO BID [facility] Last Admin: 08/17/20 22:46 Dose: 25 mg Documented by: Clopidogrel Bisulfate (Clopidogrel Bisulfate 75 Mg Tablet) 75 mg PO DAILY [facility] Dextrose (Dextrose 50%-Water 25 Gm/50 Ml Disp.Syrin) 0 gm IV X1 PRN; Protocol PRN Reason: Hypoglycemia Enoxaparin Sodium (Enoxaparin 40 Mg/0.4 Ml Syringe) 40 mg SC DAILY [facility] Last Admin: 08/17/20 23:03 Dose: Not Given Documented by: Glucagon (Glucagon 1 Mg/Ml Syringe) 1 mg IM .X1 PRN PRN Reason: Hypoglycemia Sodium Chloride () 1,000 mls @ 150 mls/hr IV .Q6H40M [facility] Last Admin: 08/17/20 20:31 Dose: Not Given Documented by: Sodium Chloride () 1,000 mls @ 75 mls/hr IV .[id number] [facility] Stop: 08/18/20 09:04 Last Admin: 08/17/20 20:31 Dose: 75 mls/hr Documented by: Vancomycin IV Pharmacy to Dose (1 each/ Sodium Chloride) 500 mls @ 250 mls/hr IV PRN PRN; Protocol PRN Reason: VANCOMYCIN DOSING Piperacillin Sod/Tazobactam (Sod 3.375 gm/ Sodium Chloride) 50 mls @ 12.5 mls/hr IV Q8 [facility] Last Admin: 08/18/20 05:52 Dose: 12.5 mls/hr Documented by: Vancomycin HCl (Vancomycin) 1,000 mg in 200 mls @ 200 mls/hr IV Q24H [facility] Insulin Glargine (Insulin Glargine 100 Units/Ml Pen) 30 units SC BID [facility] Last Admin: 08/17/20 22:47 Dose: 30 units Documented by: Insulin Human Lispro (Insulin Lispro 100 Unit/Ml Insuln.Pen) 10 unit SC TIDCM [facility] Insulin Human Lispro (Insulin Lispro 100 Unit/Ml Insuln.Pen) 0 unit SC ACHS [facility]; Protocol Last Admin: 08/17/20 22:48 Dose: 8 units Documented by: Isosorbide Mononitrate (Isosorbide Mononitrate 60 Mg Tablet) 60 mg PO DAILY [facility] Isosorbide Mononitrate (Isosorbide Mononitrate 60 Mg Tablet) 120 mg PO QPM [facility] Last Admin: 08/17/20 22:44 Dose: 120 mg Documented by: Levothyroxine Sodium (Levothyroxine 75 Mcg Tablet) 75 mcg PO QHS [facility] Last Admin: 08/17/20 22:45 Dose: 75 mcg Documented by: Lisinopril (Lisinopril 10 Mg Tablet) 10 mg PO DAILY [facility] Metoclopramide HCl (Metoclopramide 10 Mg Tablet) 10 mg PO Q8H PRN PRN Reason: NAUSEA Morphine Sulfate (Morphine 2 Mg/Ml Syringe) 2 - 4 mg IV Q3H PRN PRN PRN Reason: Pain Score 6-10 Last Admin: 08/17/20 23:12 Dose: 2 mg Documented by: Nitroglycerin (Nitroglycerin (Inpatient Use) 0.4 Mg Tab.Subl) 0.4 mg SL Q5M PRN PRN Reason: CARDIAC/CHEST PAIN Nutritional Formula (Nutritional Supplement (Blue) Packet) 1 packet PO BIDCM [facility] Nutritional Formula (Lactose Free) (Glucerna Shake 120 Ml Liquid) 120 ml PO 4X/DAY [facility] Last Admin: 08/17/20 23:04 Dose: Not Given Documented by: Oxycodone HCl (Oxycodone 5 Mg Tablet) 5 mg PO Q4H PRN PRN PRN Reason: Pain Score 4-5 Pancrelipase (Creon 24,[address] Capsule) 1 capsule PO BIDCM [facility] Pantoprazole Sodium (Pantoprazole Sodium 20 Mg Tablet) 20 mg PO DAILY [facility] Polyethylene Glycol (Polyethylene Glycol 3350 17 Gm Packet) 17 gm PO DAILY [facility] Pravastatin Sodium (Pravastatin 40 Mg Tablet) 40 mg PO QHS [facility] Last Admin: 08/17/20 22:47 Dose: 40 mg Documented by: Senna/Docusate Sodium (Senna/Docusate Sodium 1 Tablet) 2 tablet PO BID PRN PRN PRN Reason: Constipation Sodium Chloride (0.9% Saline Lock 10 Ml Syringe) 10 - 40 ml IV UD PRN PRN Reason: SALINE FLUSH Tizanidine HCl (Tizanidine Hcl 2 Mg Tablet) 4 mg PO Q8H PRN PRN Reason: BACK PAIN Trazodone HCl (Trazodone 100 Mg Tablet) 100 mg PO QHS PRN PRN Reason: SLEEP Last Admin: 08/17/20 23:06 Dose: 100 mg Documented by: Venlafaxine HCl (Venlafaxine Hcl 100 Mg Tablet) 100 mg PO BID [facility] Last Admin: 08/17/20 22:46 Dose: 100 mg Documented by: Assessment/Plan All Active Problems (Last Reviewed 06/10/20 @ 21:[address] Judson Massey MD) Diabetic infection of left foot (Acute) Abscess of left foot (Acute) Cellulitis of left lower limb (Acute) Ulcer of right foot with necrosis of bone (Resolved) Chest pain (Acute) Decubitus ulcer of sacral region, stage 2 (Resolved) Left foot cellulitis Left foot ulcer Suspected abscess left foot Charcot foot deformity left foot Diabetes with neuropathy Patient seen and examined bedside. Patient noted to have ulcerations to plantar left foot with tenderness to palpation with fluctuation at central aspect concerning for an abscess. X-rays were obtained and reviewed showing no acute fracture dislocation. MRI is ordered to further assess any deep infection or abscess. Discussed with patient that pending the MRI results that she may need to undergo surgery in order to drain a potential abscess. MRI obtained and showed Cellulitis of the plantar aspect of the foot but no abscess or osteomyelitis. Severe tarsometatarsal joint arthrosis possibly from prior Lisfranc joint injury As no abscess or osteomyelitis was seen on MRI. I will give patient back her diet. No plan for OR today. Recommend managing cellulitis with antibiotics and continuing wound care. Continue IV antibiotics per infectious disease. Continue wound care daily dressing changes with silver Nonweightbearing left lower extremity White blood cell 8.6, ESR 37, CRP 18.4, cultures were negative for MRSA Wound cultures and blood cultures are pending. Follow results Thank you for the consult. Please contact if any questions or concerns. Annia Zayas DPM [facility] [phone]
[2020-08-18 07:53] LABS: Anion Gap 9 (5-15); BUN 37 mg/dL (7-18); BUN/Creat Ratio 31.6 RATIO (10-20); Calcium,Total 8.2 mg/dL (8.5-10.1); Chloride 115 mmol/L (98-107); Creatinine, Serum 1.17 mg/dL (0.55-1.02); EST Glomerular Filtration Rate 48 mL/min (>60); Est Glom Filt Rate - Afr Amer 58 mL/min (>60); Estimated Creatinine Clearance 36.98 ml/min; Glucose 121 mg/dL (74-106); Potassium 4.1 mmol/L (3.5-5.1); Sodium Level 140 mmol/L (136-145); T4 Free Direct 1.15 ng/dL (0.76-1.46); Thyroid Stim Hormone (TSH) 0.59 uIU/mL (0.358-3.74)
[2020-08-18 08:05] LABS: Bedside Glucose 141 mg/dL (70-110)
[2020-08-18 09:00] VITALS: BP 96/44; PULSE 78; RESP 18; TEMP 36.7; O2SAT 98
--- NOTE | 2020-08-18 09:00 | MRI_ITS ---
STUDY: MRI LEFT MIDFOOT REASON FOR EXAM: Female, 75 years old. infection midfoot/forefoot -- include entire midfoot and to Metatarsal heads TECHNIQUE: Standardized fat and water weighted pulse sequences were obtained in all 3 orthogonal planes. COMPARISON: X-ray 08/17/2020 FINDINGS: Normal talonavicular articulation. Normal calcaneocuboid articulation. Normal navicular-cuneiform articulations. Normal intercuneiform articulations. Severe tarsometatarsal joint arthrosis with widening of the space between the second and third cuneiform bones which may be related to prior Lisfranc joint injury. Normal first through fifth metatarsi. Normal tibialis anterior tendon. Normal extensor hallucis longus tendon. Normal extensor digitorum longus tendons. Normal peroneus longus tendon and distal insertion. Normal peroneus brevis tendon and distal insertion. There is diffuse atrophy of the intrinsic muscles of the foot consistent with a peripheral neuropathy. Normal extensor digitorum brevis muscle. Skin thickening and edema in the subcutaneous fat of the plantar aspect of the foot plantar to the fourth metatarsal head consistent with cellulitis. No likely a fluid collection to suggest abscess. No bone destruction or marrow edema to suggest osteomyelitis. MRI/Lower Ext/No Jt/w/o IMPRESSION: 1. Cellulitis of the plantar aspect of the foot but no abscess or osteomyelitis. 2. Severe tarsometatarsal joint arthrosis possibly from prior Lisfranc joint injury Electronically Signed: Tonny Khalil MD at 11:11 EDT Tel , Service support ,
--- NOTE | 2020-08-18 09:21 | NURSING ---
wound photo: left plantar foot
--- NOTE | 2020-08-18 09:49 | PN.ID_ITS ---
Patient Problems: Active and Suspected Problems (Last Reviewed 06/10/20 @ 21:[address] Judson Massey MD) Diabetic infection of left foot (Acute) Abscess of left foot (Acute) Cellulitis of left lower limb (Acute) Chest pain (Acute) - Physical Exam Vitals/I&O's: Vital Signs Temp Pulse Resp BP Pulse Ox 98.1 F 78 18 96/44 L 98 08/18/20 09:00 08/18/20 09:00 08/18/20 09:00 08/18/20 09:00 08/18/20 09:00 Oxygen Delivery Method Room Air Weight: 76.9 kg Body Mass Index (BMI) 29.0 Finger Stick Blood Glucose 193 Intake and Output for Last 24 Hours 08/16/20 08/17/20 08/18/20 23:59 23:59 23:59 Intake Total 1125 / 1125 500 / 500 Output Total 1500 / 1500 Balance 1125 / 525 -1000 / -1000 Laboratory Results 08/17/20 16:50: WBC 10.3, RBC 4.18 L, Hgb 12.2, Hct 37.4, MCV 89.5, MCH 29.2, MCHC 32.6, RDW Std Deviation 49.0 H, RDW Coeff of Marco 15.0 H, Plt Count 240, MPV 9.5, Immature Gran % (Auto) 0.700, Neut % (Auto) 67.8, Lymph % (Auto) 19.3, [place] % (Auto) 9.6, Eos % (Auto) 2.3, Baso % (Auto) 0.3, Absolute Neuts (auto) 7.0, Absolute Lymphs (auto) 1.98, Nucleated RBC % 0, ESR 37 H 08/17/20 16:50: PT 14.5, INR 1.2, APTT 26.7 08/17/20 16:50: Sodium 133 L, Potassium 4.7, Chloride 109 H, Carbon Dioxide 17.0 L, Anion Gap 7, BUN 51 H, Creatinine 1.32 H, Estim Creat Clear Calc 32.78, Est GFR (MDRD) Af Amer 51 L, Est GFR (MDRD) Non-Af 42 L, BUN/Creatinine Ratio 38.6 H , Glucose 169 H, Calcium 8.5, Total Bilirubin 0.20, AST 18, ALT 36, Alkaline Phosphatase 82, C-React Prot Ext Range 18.40 H, Total Protein 6.9, Albumin 2.8 L , Globulin 4.1, Albumin/Globulin Ratio 0.7 L 08/17/20 16:50: Lactic Acid 0.6 08/17/20 16:50: Phosphorus 4.1, Prealbumin 20.6 08/17/20 22:41: POC Glucose 333 H 08/18/20 03:00: S.aureus Protein A PCR NEGATIVE, MRSA (PCR) Negative 08/18/20 06:25: WBC 8.6, RBC 4.04 L, Hgb 11.7 L, Hct 35.8 L, MCV 88.6, MCH 29.0, MCHC 32.7, RDW Std Deviation 48.1 H, RDW Coeff of Marco 14.8 H, Plt Count 222, MPV 9.2, Immature Gran % (Auto) 0.700, Neut % (Auto) 64.1, Lymph % (Auto) 22.1, [place] % (Auto) 9.8, Eos % (Auto) 2.7, Baso % (Auto) 0.6, Absolute Neuts (auto) 5.5, Absolute Lymphs (auto) 1.91, Nucleated RBC % 0 08/18/20 06:25: Sodium 140, Potassium 4.1, Chloride 115 H, Carbon Dioxide 16.0 L , Anion Gap 9, BUN 37 H, Creatinine 1.17 H, Estim Creat Clear Calc 36.98, Est GFR (MDRD) Af Amer 58 L, Est GFR (MDRD) Non-Af 48 L, BUN/Creatinine Ratio 31.6 H , Glucose 121 H, Calcium 8.2 L, TSH 0.59, Free T4 1.15 08/18/20 07:59: POC Glucose 141 H Current Medications Acetaminophen (Acetaminophen 325 Mg Tablet) 650 mg PO Q6H PRN PRN PRN Reason: Pain Score 1-10 /Temp>100.7 Allopurinol (Allopurinol 100 Mg Tablet) 100 mg PO DAILY [facility] Amlodipine Besylate (Amlodipine 5 Mg Tablet) 5 mg PO DAILY [facility] Aspirin (Aspirin E.C. 81 Mg Tablet) 81 mg PO DAILYCM [facility] Bisacodyl (Bisacodyl 5 Mg Tablet) 10 mg PO DAILY PRN PRN PRN Reason: Constipation Calamine/Phenol (Menthol/Lanolin/Calamine/Znox 113 Gm Tube) 1 applic TOPICAL TID [facility]; Protocol Last Admin: 08/18/20 05:54 Dose: Not Given Documented by: Carvedilol (Carvedilol 25 Mg Tablet) 25 mg PO BID [facility] Last Admin: 08/17/20 22:46 Dose: 25 mg Documented by: Clopidogrel Bisulfate (Clopidogrel Bisulfate 75 Mg Tablet) 75 mg PO DAILY [facility] Dextrose (Dextrose 50%-Water 25 Gm/50 Ml Disp.Syrin) 0 gm IV X1 PRN; Protocol PRN Reason: Hypoglycemia Enoxaparin Sodium (Enoxaparin 40 Mg/0.4 Ml Syringe) 40 mg SC DAILY [facility] Last Admin: 08/17/20 23:03 Dose: Not Given Documented by: Glucagon (Glucagon 1 Mg/Ml Syringe) 1 mg IM .X1 PRN PRN Reason: Hypoglycemia Sodium Chloride () 1,000 mls @ 150 mls/hr IV .Q6H40M [facility] Last Admin: 08/17/20 20:31 Dose: Not Given Documented by: Vancomycin IV Pharmacy to Dose (1 each/ Sodium Chloride) 500 mls @ 250 mls/hr IV PRN PRN; Protocol PRN Reason: VANCOMYCIN DOSING Piperacillin Sod/Tazobactam (Sod 3.375 gm/ Sodium Chloride) 50 mls @ 12.5 mls/hr IV Q8 [facility] Last Admin: 08/18/20 05:52 Dose: 12.5 mls/hr Documented by: Vancomycin HCl (Vancomycin) 1,000 mg in 200 mls @ 200 mls/hr IV Q24H [facility] Insulin Glargine (Insulin Glargine 100 Units/Ml Pen) 30 units SC BID [facility] Last Admin: 08/17/20 22:47 Dose: 30 units Documented by: Insulin Human Lispro (Insulin Lispro 100 Unit/Ml Insuln.Pen) 10 unit SC TIDCM [facility] Insulin Human Lispro (Insulin Lispro 100 Unit/Ml Insuln.Pen) 0 unit SC ACHS [facility]; Protocol Last Admin: 08/18/20 08:26 Dose: Not Given Documented by: Isosorbide Mononitrate (Isosorbide Mononitrate 60 Mg Tablet) 60 mg PO DAILY [facility] Isosorbide Mononitrate (Isosorbide Mononitrate 60 Mg Tablet) 120 mg PO QPM [facility] Last Admin: 08/17/20 22:44 Dose: 120 mg Documented by: Levothyroxine Sodium (Levothyroxine 75 Mcg Tablet) 75 mcg PO QHS [facility] Last Admin: 08/17/20 22:45 Dose: 75 mcg Documented by: Lisinopril (Lisinopril 10 Mg Tablet) 10 mg PO DAILY [facility] Metoclopramide HCl (Metoclopramide 10 Mg Tablet) 10 mg PO Q8H PRN PRN Reason: NAUSEA Morphine Sulfate (Morphine 2 Mg/Ml Syringe) 2 - 4 mg IV Q3H PRN PRN PRN Reason: Pain Score 6-10 Last Admin: 08/17/20 23:12 Dose: 2 mg Documented by: Nitroglycerin (Nitroglycerin (Inpatient Use) 0.4 Mg Tab.Subl) 0.4 mg SL Q5M PRN PRN Reason: CARDIAC/CHEST PAIN Nutritional Formula (Nutritional Supplement (Blue) Packet) 1 packet PO BIDCM [facility] Nutritional Formula (Lactose Free) (Glucerna Shake 120 Ml Liquid) 120 ml PO 4X/DAY [facility] Last Admin: 08/17/20 23:04 Dose: Not Given Documented by: Oxycodone HCl (Oxycodone 5 Mg Tablet) 5 mg PO Q4H PRN PRN PRN Reason: Pain Score 4-5 Pancrelipase (Creon 24,[address] Capsule) 1 capsule PO BIDCM [facility] Pantoprazole Sodium (Pantoprazole Sodium 20 Mg Tablet) 20 mg PO DAILY [facility] Polyethylene Glycol (Polyethylene Glycol 3350 17 Gm Packet) 17 gm PO DAILY [facility] Pravastatin Sodium (Pravastatin 40 Mg Tablet) 40 mg PO QHS [facility] Last Admin: 08/17/20 22:47 Dose: 40 mg Documented by: Senna/Docusate Sodium (Senna/Docusate Sodium 1 Tablet) 2 tablet PO BID PRN PRN PRN Reason: Constipation Sodium Chloride (0.9% Saline Lock 10 Ml Syringe) 10 - 40 ml IV UD PRN PRN Reason: SALINE FLUSH Tizanidine HCl (Tizanidine Hcl 2 Mg Tablet) 4 mg PO Q8H PRN PRN Reason: BACK PAIN Trazodone HCl (Trazodone 100 Mg Tablet) 100 mg PO QHS PRN PRN Reason: SLEEP Last Admin: 08/17/20 23:06 Dose: 100 mg Documented by: Venlafaxine HCl (Venlafaxine Hcl 100 Mg Tablet) 100 mg PO BID [facility] Last Admin: 08/17/20 22:46 Dose: 100 mg Documented by: Medical Necessity - Tobacco Use Smoking Status: Never smoker Route of nutrition/ use of supplements: [] Nutritional Intake: [] IV Site: [] Maloney Catheter: [] - Assessment/Plan Antibiotics: [] Assessment/Plan: [] Active and Suspected Problems (Last Reviewed 06/10/20 @ 21:[address] Judson Massey MD) Diabetic infection of left foot (Acute) Abscess of left foot (Acute) Cellulitis of left lower limb (Acute) Chest pain (Acute) Pt gone from room, MRI pending, agree with empiric vanc/zosyn. Will do full consult tomorrow.
--- NOTE | 2020-08-18 10:04 | PCM.PROGNOTE ---
Patient Problems: Active and Suspected Problems (Last Reviewed 06/10/20 @ 21:[address] Judson Massey MD) Diabetic infection of left foot (Acute) Abscess of left foot (Acute) Cellulitis of left lower limb (Acute) Chest pain (Acute) Subjective: Patient seen and examined. States she feels cold. Complains of left foot pain when she stands. Denies other symptoms or complaints. - Physical Exam Vitals/I&O's: Vital Signs Temp Pulse Resp BP Pulse Ox 98.1 F 78 18 96/44 L 98 08/18/20 09:00 08/18/20 09:00 08/18/20 09:00 08/18/20 09:00 08/18/20 09:00 Oxygen Delivery Method Room Air Weight: 169 lb 8.568 oz Body Mass Index (BMI) 29.0 Finger Stick Blood Glucose 193 Intake and Output for Last 24 Hours 08/16/20 08/17/20 08/18/20 23:59 23:59 23:59 Intake Total 1125 / 1125 500 / 500 Output Total 1500 / 1500 Balance 1125 / 525 -1000 / -1000 General: Alert, Oriented x3, Cooperative HEENT: Atraumatic, PERRLA, EOMI, Normocephalic Neck: Supple, No JVD, Negative Carotid Bruits Lungs: Clear to auscultation, Normal air movement Cardiovascular: Regular rate, No murmurs Abdomen: Bowel Sounds Present, Soft, Non Tender Extremities: No clubbing, No cyanosis, No edema, Capillary Refill Less than 3 Seconds Skin: No rashes, No breakdown, - - Left foot dressing intact Musculoskeletal: No Tenderness to Palpation of Joints or Extremities Neurological: Cranial nerves II-XII grossly intact, Neuro grossly intact Psych/Mental Status: Normal Affect, Appropriate Laboratory Results 08/17/20 16:50: WBC 10.3, RBC 4.18 L, Hgb 12.2, Hct 37.4, MCV 89.5, MCH 29.2, MCHC 32.6, RDW Std Deviation 49.0 H, RDW Coeff of Marco 15.0 H, Plt Count 240, MPV 9.5, Immature Gran % (Auto) 0.700, Neut % (Auto) 67.8, Lymph % (Auto) 19.3, [place] % (Auto) 9.6, Eos % (Auto) 2.3, Baso % (Auto) 0.3, Absolute Neuts (auto) 7.0, Absolute Lymphs (auto) 1.98, Nucleated RBC % 0, ESR 37 H 08/17/20 16:50: PT 14.5, INR 1.2, APTT 26.7 08/17/20 16:50: Sodium 133 L, Potassium 4.7, Chloride 109 H, Carbon Dioxide 17.0 L, Anion Gap 7, BUN 51 H, Creatinine 1.32 H, Estim Creat Clear Calc 32.78, Est GFR (MDRD) Af Amer 51 L, Est GFR (MDRD) Non-Af 42 L, BUN/Creatinine Ratio 38.6 H, Glucose 169 H, Calcium 8.5, Total Bilirubin 0.20, AST 18, ALT 36, Alkaline Phosphatase 82, C-React Prot Ext Range 18.40 H, Total Protein 6.9, Albumin 2.8 L, Globulin 4.1, Albumin/Globulin Ratio 0.7 L 08/17/20 16:50: Lactic Acid 0.6 08/17/20 16:50: Phosphorus 4.1, Prealbumin 20.6 08/17/20 22:41: POC Glucose 333 H 08/18/20 03:00: S.aureus Protein A PCR NEGATIVE, MRSA (PCR) Negative 08/18/20 06:25: WBC 8.6, RBC 4.04 L, Hgb 11.7 L, Hct 35.8 L, MCV 88.6, MCH 29.0, MCHC 32.7, RDW Std Deviation 48.1 H, RDW Coeff of Marco 14.8 H, Plt Count 222, MPV 9.2, Immature Gran % (Auto) 0.700, Neut % (Auto) 64.1, Lymph % (Auto) 22.1, [place] % (Auto) 9.8, Eos % (Auto) 2.7, Baso % (Auto) 0.6, Absolute Neuts (auto) 5.5, Absolute Lymphs (auto) 1.91, Nucleated RBC % 0 08/18/20 06:25: Sodium 140, Potassium 4.1, Chloride 115 H, Carbon Dioxide 16.0 L, Anion Gap 9, BUN 37 H, Creatinine 1.17 H, Estim Creat Clear Calc 36.98, Est GFR (MDRD) Af Amer 58 L, Est GFR (MDRD) Non-Af 48 L, BUN/Creatinine Ratio 31.6 H, Glucose 121 H, Calcium 8.2 L, TSH 0.59, Free T4 1.15 08/18/20 07:59: POC Glucose 141 H Current Medications Acetaminophen (Acetaminophen 325 Mg Tablet) 650 mg PO Q6H PRN PRN PRN Reason: Pain Score 1-10 /Temp>100.7 Allopurinol (Allopurinol 100 Mg Tablet) 100 mg PO DAILY [facility] Amlodipine Besylate (Amlodipine 5 Mg Tablet) 5 mg PO DAILY [facility] Aspirin (Aspirin E.C. 81 Mg Tablet) 81 mg PO DAILYCM [facility] Bisacodyl (Bisacodyl 5 Mg Tablet) 10 mg PO DAILY PRN PRN PRN Reason: Constipation Calamine/Phenol (Menthol/Lanolin/Calamine/Znox 113 Gm Tube) 1 applic TOPICAL TID [facility]; Protocol Last Admin: 08/18/20 05:54 Dose: Not Given Documented by: Carvedilol (Carvedilol 25 Mg Tablet) 25 mg PO BID [facility] Last Admin: 08/17/20 22:46 Dose: 25 mg Documented by: Clopidogrel Bisulfate (Clopidogrel Bisulfate 75 Mg Tablet) 75 mg PO DAILY [facility] Dextrose (Dextrose 50%-Water 25 Gm/50 Ml Disp.Syrin) 0 gm IV X1 PRN; Protocol PRN Reason: Hypoglycemia Enoxaparin Sodium (Enoxaparin 40 Mg/0.4 Ml Syringe) 40 mg SC DAILY [facility] Last Admin: 08/17/20 23:03 Dose: Not Given Documented by: Glucagon (Glucagon 1 Mg/Ml Syringe) 1 mg IM .X1 PRN PRN Reason: Hypoglycemia Sodium Chloride () 1,000 mls @ 150 mls/hr IV .Q6H40M [facility] Last Admin: 08/17/20 20:31 Dose: Not Given Documented by: Vancomycin IV Pharmacy to Dose (1 each/ Sodium Chloride) 500 mls @ 250 mls/hr IV PRN PRN; Protocol PRN Reason: VANCOMYCIN DOSING Piperacillin Sod/Tazobactam (Sod 3.375 gm/ Sodium Chloride) 50 mls @ 12.5 mls/hr IV Q8 [facility] Last Admin: 08/18/20 05:52 Dose: 12.5 mls/hr Documented by: Vancomycin HCl (Vancomycin) 1,000 mg in 200 mls @ 200 mls/hr IV Q24H [facility] Insulin Glargine (Insulin Glargine 100 Units/Ml Pen) 30 units SC BID [facility] Last Admin: 08/17/20 22:47 Dose: 30 units Documented by: Insulin Human Lispro (Insulin Lispro 100 Unit/Ml Insuln.Pen) 10 unit SC TIDCM [facility] Insulin Human Lispro (Insulin Lispro 100 Unit/Ml Insuln.Pen) 0 unit SC ACHS [facility]; Protocol Last Admin: 08/18/20 08:26 Dose: Not Given Documented by: Isosorbide Mononitrate (Isosorbide Mononitrate 60 Mg Tablet) 60 mg PO DAILY [facility] Isosorbide Mononitrate (Isosorbide Mononitrate 60 Mg Tablet) 120 mg PO QPM [facility] Last Admin: 08/17/20 22:44 Dose: 120 mg Documented by: Levothyroxine Sodium (Levothyroxine 75 Mcg Tablet) 75 mcg PO QHS [facility] Last Admin: 08/17/20 22:45 Dose: 75 mcg Documented by: Lisinopril (Lisinopril 10 Mg Tablet) 10 mg PO DAILY [facility] Metoclopramide HCl (Metoclopramide 10 Mg Tablet) 10 mg PO Q8H PRN PRN Reason: NAUSEA Morphine Sulfate (Morphine 2 Mg/Ml Syringe) 2 - 4 mg IV Q3H PRN PRN PRN Reason: Pain Score 6-10 Last Admin: 08/17/20 23:12 Dose: 2 mg Documented by: Nitroglycerin (Nitroglycerin (Inpatient Use) 0.4 Mg Tab.Subl) 0.4 mg SL Q5M PRN PRN Reason: CARDIAC/CHEST PAIN Nutritional Formula (Nutritional Supplement (Blue) Packet) 1 packet PO BIDCM [facility] Nutritional Formula (Lactose Free) (Glucerna Shake 120 Ml Liquid) 120 ml PO 4X/DAY [facility] Last Admin: 08/17/20 23:04 Dose: Not Given Documented by: Oxycodone HCl (Oxycodone 5 Mg Tablet) 5 mg PO Q4H PRN PRN PRN Reason: Pain Score 4-5 Pancrelipase (Creon 24,[address] Capsule) 1 capsule PO BIDCM [facility] Pantoprazole Sodium (Pantoprazole Sodium 20 Mg Tablet) 20 mg PO DAILY [facility] Polyethylene Glycol (Polyethylene Glycol 3350 17 Gm Packet) 17 gm PO DAILY [facility] Pravastatin Sodium (Pravastatin 40 Mg Tablet) 40 mg PO QHS [facility] Last Admin: 08/17/20 22:47 Dose: 40 mg Documented by: Senna/Docusate Sodium (Senna/Docusate Sodium 1 Tablet) 2 tablet PO BID PRN PRN PRN Reason: Constipation Sodium Chloride (0.9% Saline Lock 10 Ml Syringe) 10 - 40 ml IV UD PRN PRN Reason: SALINE FLUSH Tizanidine HCl (Tizanidine Hcl 2 Mg Tablet) 4 mg PO Q8H PRN PRN Reason: BACK PAIN Trazodone HCl (Trazodone 100 Mg Tablet) 100 mg PO QHS PRN PRN Reason: SLEEP Last Admin: 08/17/20 23:06 Dose: 100 mg Documented by: Venlafaxine HCl (Venlafaxine Hcl 100 Mg Tablet) 100 mg PO BID [facility] Last Admin: 08/17/20 22:46 Dose: 100 mg Documented by: Medical Necessity - Tobacco Use Smoking Status: Never smoker Assessment/Plan All Active Problems (Last Reviewed 06/10/20 @ 21:[address] Judson Massey MD) Diabetic infection of left foot (Acute) Abscess of left foot (Acute) Cellulitis of left lower limb (Acute) Ulcer of right foot with necrosis of bone (Resolved) Chest pain (Acute) Decubitus ulcer of sacral region, stage 2 (Resolved) 1. Acute, recurrent left foot ulcer with suspected abscess, Charcot deformity-podiatry and ID following. On IV Zosyn and IV vancomycin. Previous incision and drainage left foot with widespread debridement 04/15/2020. Cultures at that time grew multiple organisms including strep, Pseudomonas and staph. Wound RN consult. MRI pending. PT/OT. Repeat wound cultures pending. Patient follows with wound center. 1. CAD with history of CABG and stents- Prior heart cath November 2018 which demonstrated mid RCA lesion 65% stenosis, FFR was done with no PCI. Stress echo June 2019 negative for ischemia. Continue medical management including aspirin, carvedilol, statin, isosorbide. Hold Plavix given possible surgical intervention. 3. Chronic kidney disease stage III-at baseline, trend BMP. 4. Type 2 diabetes mellitus- Continue home insulin regimen. Accu-Cheks with sliding scale insulin. Hemoglobin A1c January 2020 7.8%. 5. Hypertension-stable, continue Norvasc, Coreg, lisinopril, isosorbide. 6. GERD-continue PPI. 7. Hypothyroidism-continue Synthroid. 8. PVD-continue aspirin, Plavix, statin. 9. Chronic microcytic anemia/iron deficiency anemia-stable. 10. Anxiety-uses CBD oil as needed. DVT prophylaxis-Lovenox subcu. This patient was seen by CLIFFORD Grayson under the supervision of Dr. Cheek.
[2020-08-18] MEDS: 0.9% Saline Lock 10 ML Syringe IV ×3 (11:22→16:07)
[2020-08-18] MEDS: tiZANidine HCl 2 MG Tablet 4 MG PO (11:23)
[2020-08-18 11:51] LABS: Bedside Glucose 164 mg/dL (70-110)
--- NOTE | 2020-08-18 12:21 | NT.THERAPY_ITS ---
Nutrition Therapy Report - History Nutrition Services has been consulted to:: Manage nutrient details of diet order Current diet / nutrition support order:: 1800 calorie; consistent-carbohydrate--select. 120ml glucerna shake 4 times per day w/ medpass. Blue 1 packet BID - Anthropometric Measurements Height:: 5 ft 4 in Weight:: 76.9 kg Body Mass Index (BMI):: 29.0 - Relevant Labs Relevant Labs:: RBC 4.04 M/mm3 (4.2-5.4) L 08/18/20 06:25 Hgb 11.7 g/dL (12.0-15.0) L 08/18/20 06:25 Hct 35.8 % (37-47) L 08/18/20 06:25 RDW Std Deviation 48.1 fl (35.1-43.9) H 08/18/20 06:25 RDW Coeff of Marco 14.8 % (11.6-14.6) H 08/18/20 06:25 ESR 37 mm/hr (0-30) H 08/17/20 16:50 Sodium 133 mmol/L (136-145) L 08/17/20 16:50 Chloride 115 mmol/L (98-107) H 08/18/20 06:25 Carbon Dioxide 16.0 mmol/L (21.0-32.0) L 08/18/20 06:25 BUN 37 mg/dL (7-18) H 08/18/20 06:25 Creatinine 1.17 mg/dL (0.55-1.02) H 08/18/20 06:25 Est GFR (MDRD) Af Amer 58 mL/min (>60) L 08/18/20 06:25 Est GFR (MDRD) Non-Af 48 mL/min (>60) L 08/18/20 06:25 BUN/Creatinine Ratio 31.6 RATIO (10-20) H 08/18/20 06:25 Glucose 121 mg/dL (74-106) H 08/18/20 06:25 Calcium 8.2 mg/dL (8.5-10.1) L 08/18/20 06:25 C-React Prot Ext Range 18.40 mg/L (0.0-3.0) H 08/17/20 16:50 Albumin 2.8 g/dL (3.2-5.0) L 08/17/20 16:50 Albumin/Globulin Ratio 0.7 RATIO (0.9-2.4) L 08/17/20 16:50 - Assessment Food / Nutrition-Related History:: Pt reports UBW~82 Kg and reports recent wt loss with difficulty quantifying; per EMR review 87 Kg about 6 months ago--calculated~12% wt loss x 6 months is significant for malnutrition in addition to ongoing poor appetite x past several months. Pt does not seem to exhibit physical signs of malnutrition and BMI 29.1. Pt accepting of Blue but, refusing glucerna shake. She takes premier protein drinks at home & purchases by the case. Pt denies difficulty chewing/swallowing. HgbA1C indicates overall fair glycemic control. - Nutrition Diagnosis Problem / Etiology / Signs & Symptoms (PES):: Pro/daina malnutrition in the context of chronic disease related to related to diabetic foot ulcer, ongoing poor appetite and debility as evidenced by 12% wt loss x past 6 months, poor intake meeting less than 50% estimated nutriiton needs x past 2-3 months and refusing glucerna shake supplements. Evidence of Malnutrition Exists:: Yes Severe PCM:: Chronic Illness - Nutrition Intervention Nutrition Prescription:: Estimated nutrition needs~2169-3848 kcal (25 kcal/Kg) and ~90-100 gm pro (1.2 gm pro/Kg) per day. Estimated fluid needs~1921-7403 ml/day (30 ml/Kg). - Food / Nutrient Delivery Interventions Summary of nutrition intervention:: Will liberalize diet to carbohydrate- controlled (no caloric restriction); add cardiac restriction as intake improves at meals. Will d/c glucerna shake w/ medpass--pt refuses to take it. Will continue Blue BID. Will add extra protein on meal trays as pt willing. Nutrition education provided?: Yes - MNT Monitoring Further MNT monitoring and evaluation required?: Yes MNT Follow-up in:: 3-5 days
[2020-08-18 12:23] VITALS: BMI 29.0
--- NOTE | 2020-08-18 12:43 | CASEMGMT ---
GRICELDA REED Assessment: Face to Face with pt for initial transition planning/care coordination assessment. GRICELDA REED introduced self and role at [facility], pt voices understanding and consents to assessment. Pt lying in bed in no distress. Pt is A/O x4 and answers all questions appropriately at this time. Care providers, pharmacy, and demographics verified/updated. Admitting Dx: Left Diabetic Foot PCP: Dr. Estee Johnson Specialists: Dr. Magana, podiatry; [facility], cardio; Dr. Pedro, pulm; Dr. Mims, pain mgmt Preferred Pharmacy: [facility] Insurance: [facility], [employer]- Pt states this is [employer]. Prescription Benefit: yes LW/HPOA: Pt has a LW and DPOA which is on file at [facility]. DPOA is BROWN [place]rera. LNOK: [place] Living Arrangements: Pt lives with and son in a 2 story home. She only uses the main level of the home. Pt has 2 steps to enter the home with a rail. Pt is mostly I in ADL's, sometimes her assists. Pt denies concerns at home. Transportation: Pt or DIL drives pt. No concerns regarding transportation. DME/HHC/SNF: Pt reports having a working BGM, cane, walker, w/c, shower chair, knee scooter, BSC and an electric scooter. Denies need for futher DME. Pt has had [facility] in the past and has been at [facility] for skilled care. Pt currently sees [facility]. States she gets a new cast weekly and does not need to change anything in between visits. Pt has previously done her own wound care at home. Pt states no concerns with going home at time of dc. Pt states no further concerns/needs. CM to follow. Advised pt to ask CM if any further question/concerns/needs arise, voices understanding. Pt Goal: Home Plan: Home with family support, will follow for need of HHC.
[2020-08-18] MEDS: Insulin Lispro 100 UNIT/ML INSULN.PEN 10 UNIT SC ×2 (12:52→17:49)
[2020-08-18] MEDS: Insulin Lispro 100 UNIT/ML INSULN.PEN SC ×2 (12:52→21:35)
[2020-08-18] MEDS: Carvedilol 25 MG Tablet PO ×2 (12:54→21:33)
[2020-08-18] MEDS: Menthol/Lanolin/Calamine/Znox 113 GM Tube 1 APPLIC TOPICAL (14:57)
[2020-08-18] MEDS: 0.9% Normal Saline 1,000 ML 150 ML IV ×2 (14:58→21:25)
[2020-08-18 15:14] VITALS: BP 136/36; PULSE 73; RESP 18; TEMP 36.6; O2SAT 98
[2020-08-18] MEDS: Morphine 2 MG/ML Syringe IV (16:07)
[2020-08-18 16:15] LABS: Bedside Glucose 149 mg/dL (70-110)
[2020-08-18] MEDS: Creon 24,000 unit DR Capsule 1 CAP PO (17:50)
[2020-08-18] MEDS: Vancomycin IV 1,000 MG/200 ML BAG 200 MG IV (17:54)
[2020-08-18] MEDS: Metoclopramide 10 MG Tablet PO (18:49)
[2020-08-18] MEDS: morphine (oral solution) 10MG/0.5ML Syringe 6 MG PO (18:49)
[2020-08-18] MEDS: Pantoprazole Sodium 20 MG Tablet PO (20:16)
[2020-08-18 21:19] VITALS: BP 150/58; PULSE 83; RESP 18; TEMP 37.1; O2SAT 96
[2020-08-18] MEDS: Pravastatin 40 MG Tablet PO (21:33)
[2020-08-18] MEDS: Isosorbide Mononitrate 60 MG Tablet 120 MG PO (21:33)
[2020-08-18] MEDS: Levothyroxine 75 MCG Tablet PO (21:40)
[2020-08-18] MEDS: traZODone 100 MG Tablet PO (21:44)
[2020-08-18 22:15] LABS: Bedside Glucose 230 mg/dL (70-110)
[2020-08-19] VITALS (13 sets, daily range): BP systolic 113–186; BP diastolic 53–78; PULSE 63–92; RESP 16–18; TEMP 36.2–37.2; O2SAT 92–99; BMI 29.0
[2020-08-19] MEDS: 0.9% Normal Saline 1,000 ML 150 ML IV (03:50)
[2020-08-19 06:51] LABS: Bedside Glucose 134 mg/dL (70-110)
--- NOTE | 2020-08-19 07:32 | PN_ITS ---
Patient Problems: Active and Suspected Problems (Last Reviewed 06/10/20 @ 21:[address] Judson Massey MD) Diabetic infection of left foot (Acute) Abscess of left foot (Acute) Cellulitis of left lower limb (Acute) Chest pain (Acute) Subjective: Patient seen and examined resting comfortably. Patient denies any new pedal complaints. Patient denies any nausea, fever, chills, chest pain, shortness of breath, cough, streaking, purulence, vomiting. Reports still having pain plantar left foot is largely unchanged - Physical Exam Vitals/I&O's: Vital Signs Temp Pulse Resp BP Pulse Ox 98.4 F 73 16 113/60 98 08/19/20 03:52 08/19/20 03:52 08/19/20 03:52 08/19/20 03:52 08/19/20 03:52 Oxygen Delivery Method Room Air Weight: 76.8 kg Body Mass Index (BMI) 29.0 Finger Stick Blood Glucose 193 Intake and Output for Last 24 Hours 08/17/20 08/18/20 08/19/20 23:59 23:59 23:59 Intake Total 1125 / 1125 4367.5 / 4367.5 1212.5 / 1212.5 Output Total 3250 / 3250 1500 / 1500 Balance 1125 / 525 1117.5 / 1117.5 -287.5 / -287.5 General: Alert, Oriented x3 HEENT: Atraumatic Extremities: No clubbing, No cyanosis, Capillary Refill Less than 3 Seconds, No Calf Tenderness, Diminished Peripheral Pulses, Edema Skin: Ulcer/ Wound - Plantar left foot multiple areas, some areas of fluctuation surrounding erythema and edema concern for abscess some purulent drainage noted on bandage Musculoskeletal: Muscle Wasting, Tenderness Neurological: - - Decrease in epicritic sensation consistent with neuropathy Psych/Mental Status: Normal Affect, Appropriate Microbiology Past 72 Hours 08/17/20 16:50 Blood Culture (Wb) - Other Bacteria Detection (PCR) - Preliminary 08/17/20 16:50 Blood Culture (Wb) - Other Blood Culture - Preliminary Laboratory Results 08/18/20 06:25: Sodium 140, Potassium 4.1, Chloride 115 H, Carbon Dioxide 16.0 L , Anion Gap 9, BUN 37 H, Creatinine 1.17 H, Estim Creat Clear Calc 36.98, Est GFR (MDRD) Af Amer 58 L, Est GFR (MDRD) Non-Af 48 L, BUN/Creatinine Ratio 31.6 H , Glucose 121 H, Calcium 8.2 L, TSH 0.59, Free T4 1.15 08/18/20 07:59: POC Glucose 141 H 08/18/20 11:44: POC Glucose 164 H 08/18/20 16:13: POC Glucose 149 H 08/18/20 21:24: POC Glucose 230 H 08/19/20 06:41: POC Glucose 134 H Current Medications Acetaminophen (Acetaminophen 325 Mg Tablet) 650 mg PO Q6H PRN PRN PRN Reason: Pain Score 1-10 /Temp>100.7 Allopurinol (Allopurinol 100 Mg Tablet) 100 mg PO DAILY [facility] Last Admin: 08/18/20 10:18 Dose: Not Given Documented by: Amlodipine Besylate (Amlodipine 5 Mg Tablet) 5 mg PO DAILY [facility] Last Admin: 08/18/20 10:17 Dose: Not Given Documented by: Aspirin (Aspirin E.C. 81 Mg Tablet) 81 mg PO DAILYCM [facility] Last Admin: 08/18/20 10:16 Dose: Not Given Documented by: Bisacodyl (Bisacodyl 5 Mg Tablet) 10 mg PO DAILY PRN PRN PRN Reason: Constipation Calamine/Phenol (Menthol/Lanolin/Calamine/Znox 113 Gm Tube) 1 applic TOPICAL TID [facility]; Protocol Last Admin: 08/19/20 06:39 Dose: Not Given Documented by: Carvedilol (Carvedilol 25 Mg Tablet) 25 mg PO BID [facility] Last Admin: 08/18/20 21:33 Dose: 25 mg Documented by: Dextrose (Dextrose 50%-Water 25 Gm/50 Ml Disp.Syrin) 0 gm IV X1 PRN; Protocol PRN Reason: Hypoglycemia Enoxaparin Sodium (Enoxaparin 40 Mg/0.4 Ml Syringe) 40 mg SC DAILY [facility] Last Admin: 08/17/20 23:03 Dose: Not Given Documented by: Glucagon (Glucagon 1 Mg/Ml Syringe) 1 mg IM .X1 PRN PRN Reason: Hypoglycemia Sodium Chloride () 1,000 mls @ 150 mls/hr IV .Q6H40M [facility] Last Admin: 08/19/20 03:50 Dose: 150 mls/hr Documented by: Vancomycin IV Pharmacy to Dose (1 each/ Sodium Chloride) 500 mls @ 250 mls/hr IV PRN PRN; Protocol PRN Reason: VANCOMYCIN DOSING Piperacillin Sod/Tazobactam (Sod 3.375 gm/ Sodium Chloride) 50 mls @ 12.5 mls/hr IV Q8 [facility] Last Admin: 08/19/20 05:42 Dose: 12.5 mls/hr Documented by: Vancomycin HCl (Vancomycin) 1,000 mg in 200 mls @ 200 mls/hr IV Q24H [facility] Last Infusion: 08/18/20 19:09 Dose: Infused Documented by: Insulin Glargine (Insulin Glargine 100 Units/Ml Pen) 30 units SC BID [facility] Last Admin: 08/18/20 21:34 Dose: 30 units Documented by: Insulin Human Lispro (Insulin Lispro 100 Unit/Ml Insuln.Pen) 10 unit SC TIDCM [facility] Last Admin: 08/18/20 17:49 Dose: 10 u Documented by: Insulin Human Lispro (Insulin Lispro 100 Unit/Ml Insuln.Pen) 0 unit SC ACHS [facility]; Protocol Last Admin: 08/19/20 06:42 Dose: Not Given Documented by: Isosorbide Mononitrate (Isosorbide Mononitrate 60 Mg Tablet) 60 mg PO DAILY [facility] Last Admin: 08/18/20 10:18 Dose: Not Given Documented by: Isosorbide Mononitrate (Isosorbide Mononitrate 60 Mg Tablet) 120 mg PO QPM [facility] Last Admin: 08/18/20 21:33 Dose: 120 mg Documented by: Levothyroxine Sodium (Levothyroxine 75 Mcg Tablet) 75 mcg PO QHS [facility] Last Admin: 08/18/20 21:40 Dose: 75 mcg Documented by: Lisinopril (Lisinopril 10 Mg Tablet) 10 mg PO DAILY [facility] Last Admin: 08/18/20 10:18 Dose: Not Given Documented by: Melatonin (Melatonin 10 Mg Tablet) 10 mg PO QHS [facility] Metoclopramide HCl (Metoclopramide 10 Mg Tablet) 10 mg PO Q8H PRN PRN Reason: NAUSEA Last Admin: 08/18/20 18:49 Dose: 10 mg Documented by: Morphine Sulfate (Morphine 2 Mg/Ml Syringe) 2 - 4 mg IV Q3H PRN PRN PRN Reason: Pain Score 6-10 Last Admin: 08/18/20 16:07 Dose: 2 mg Documented by: Morphine Sulfate (Morphine (Oral Solution) 10mg/0.5ml Syringe) 6 mg PO Q6H PRN PRN PRN Reason: PAIN 1-10 OR FEVER Last Admin: 08/18/20 18:49 Dose: 6 mg Documented by: Nitroglycerin (Nitroglycerin (Inpatient Use) 0.4 Mg Tab.Subl) 0.4 mg SL Q5M PRN PRN Reason: CARDIAC/CHEST PAIN Nutritional Formula (Nutritional Supp[facility] (Blue) Packet) [facility] Last Admin: 08/18/20 17:50 Dose: 1 packet Documented by: Pancrelipase (Creon 24,[address] Capsule) 1 capsule PO BIDCM [facility] Last Admin: 08/18/20 17:50 Dose: 1 capsule Documented by: Pantoprazole Sodium (Pantoprazole Sodium 20 Mg Tablet) 20 mg PO DAILY [facility] Last Admin: 08/18/20 20:16 Dose: 20 mg Documented by: Polyethylene Glycol (Polyethylene Glycol 3350 17 Gm Packet) 17 gm PO DAILY [facility] Last Admin: 08/18/20 10:17 Dose: Not Given Documented by: Pravastatin Sodium (Pravastatin 40 Mg Tablet) 40 mg PO QHS [facility] Last Admin: 08/18/20 21:33 Dose: 40 mg Documented by: Senna/Docusate Sodium (Senna/Docusate Sodium 1 Tablet) 2 tablet PO BID PRN PRN PRN Reason: Constipation Sodium Chloride (0.9% Saline Lock 10 Ml Syringe) 10 - 40 ml IV UD PRN PRN Reason: SALINE FLUSH Last Admin: 08/18/20 16:07 Dose: 10 ml Documented by: Tizanidine HCl (Tizanidine Hcl 2 Mg Tablet) 4 mg PO Q8H PRN PRN Reason: BACK PAIN Last Admin: 08/18/20 11:23 Dose: 4 mg Documented by: Trazodone HCl (Trazodone 100 Mg Tablet) 100 mg PO QHS PRN PRN Reason: SLEEP Last Admin: 08/18/20 21:44 Dose: 100 mg Documented by: Venlafaxine HCl (Venlafaxine Hcl 100 Mg Tablet) 100 mg PO BID [facility] Last Admin: 08/18/20 20:09 Dose: 100 mg Documented by: Medical Necessity - Tobacco Use Smoking Status: Never smoker Assessment/Plan All Active Problems (Last Reviewed 06/10/20 @ 21:[address] Judson Massey MD) Diabetic infection of left foot (Acute) Abscess of left foot (Acute) Cellulitis of left lower limb (Acute) Ulcer of right foot with necrosis of bone (Resolved) Chest pain (Acute) Decubitus ulcer of sacral region, stage 2 (Resolved) Left foot cellulitis Left foot ulcer Suspected abscess left foot Charcot foot deformity left foot Diabetes with neuropathy Patient seen and examined bedside. Wound to plantar left foot has worsened and is not improving with IV antibiotics. X-rays were obtained and reviewed showing no acute fracture dislocation. MRI is ordered to further assess any deep infection or abscess. MRI obtained and showed Cellulitis of the plantar aspect of the foot but no abscess or osteomyelitis. 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 There is been an increase in purulent drainage noted from the site. Would recommend going to the OR for debridement and cleaning up of the ulceration even though there is no abscess seen on MRI. Patient is n.p.o. Plan to take later this afternoon. Continue IV antibiotics per infectious disease. Continue wound care daily dressing changes with silver Nonweightbearing left lower extremity White blood cell 8.6, ESR 37, CRP 18.4, cultures were negative for MRSA Wound cultures positive for strep group B and blood cultures showing bacterial growth. Follow results Thank you for the consult. Please contact if any questions or concerns. Annia Zayas DPM [facility] [phone]
[2020-08-19] MEDS: Carvedilol 25 MG Tablet PO ×2 (08:31→21:29)
[2020-08-19] MEDS: Dextrose 5%/0.9% NaCl 1,000 ML 100 ML IV ×2 (08:31→17:57)
[2020-08-19] MEDS: Morphine 2 MG/ML Syringe IV ×2 (08:31→12:08)
[2020-08-19 09:05] LABS: Hemoglobin A1c 7.7 % (3.8-5.6)
--- NOTE | 2020-08-19 10:19 | CASEMGMT ---
[facility] Palliative Care Screening Tool completed, pt did not meet criteria.
--- NOTE | 2020-08-19 10:20 | PCM.PROGNOTE ---
Patient Problems: Active and Suspected Problems (Last Reviewed 06/10/20 @ 21:[address] Judson Massey MD) Diabetic infection of left foot (Acute) Abscess of left foot (Acute) Cellulitis of left lower limb (Acute) Chest pain (Acute) Subjective: Patient seen and examined. Plan for OR at 1234 debridement of left foot ulcer. Patient denies fever, chills. Denies chest pain, shortness of breath. Stable for surgery from a medical standpoint. She complains of back pain which she reports is due to chronic arthritis. - Physical Exam Vitals/I&O's: Vital Signs Temp Pulse Resp BP Pulse Ox 98.0 F 88 17 172/63 H 98 08/19/20 07:40 08/19/20 07:59 08/19/20 07:40 08/19/20 07:40 08/19/20 07:59 Oxygen Delivery Method Room Air Weight: 169 lb 5.04 oz Body Mass Index (BMI) 29.0 Finger Stick Blood Glucose 193 Intake and Output for Last 24 Hours 08/17/20 08/18/20 08/19/20 23:59 23:59 23:59 Intake Total 1125 / 1125 4367.5 / 4367.5 1520.0 / 1520.0 Output Total 3250 / 3250 1500 / 1500 Balance 1125 / 525 1117.5 / 1117.5 20.0 / 20.0 General: Alert, Oriented x3, Cooperative HEENT: Atraumatic, PERRLA, EOMI, Normocephalic Neck: Supple, No JVD, Negative Carotid Bruits Lungs: Clear to auscultation, Normal air movement Cardiovascular: Regular rate, No murmurs Abdomen: Bowel Sounds Present, Soft, Non Tender, Non-Distended Extremities: No clubbing, No cyanosis, No edema, Capillary Refill Less than 3 Seconds Skin: No rashes, No breakdown, - - Left foot dressing changed by podiatry this morning Musculoskeletal: No Tenderness to Palpation of Joints or Extremities Neurological: Cranial nerves II-XII grossly intact, Neuro grossly intact Psych/Mental Status: Normal Affect, Appropriate Microbiology Past 72 Hours 08/19/20 08:50 Mucosa - Nose SARS-CoV-2 Antigen (Rapid) - Final 08/17/20 16:50 Blood Culture (Wb) - Other Bacteria Detection (PCR) - Preliminary 08/17/20 16:50 Blood Culture (Wb) - Other Blood Culture - Preliminary Laboratory Results 08/18/20 06:25: Hemoglobin A1c 7.7 H 08/18/20 11:44: POC Glucose 164 H 08/18/20 16:13: POC Glucose 149 H 08/18/20 21:24: POC Glucose 230 H 08/19/20 06:41: POC Glucose 134 H Current Medications Acetaminophen (Acetaminophen 325 Mg Tablet) 650 mg PO Q6H PRN PRN PRN Reason: Pain Score 1-10 /Temp>100.7 Allopurinol (Allopurinol 100 Mg Tablet) 100 mg PO DAILY [facility] Last Admin: 08/18/20 10:18 Dose: Not Given Documented by: Amlodipine Besylate (Amlodipine 5 Mg Tablet) 5 mg PO DAILY [facility] Last Admin: 08/19/20 09:58 Dose: Not Given Documented by: Aspirin (Aspirin E.C. 81 Mg Tablet) 81 mg PO DAILYCM [facility] Last Admin: 08/19/20 08:11 Dose: Not Given Documented by: Bisacodyl (Bisacodyl 5 Mg Tablet) 10 mg PO DAILY PRN PRN PRN Reason: Constipation Calamine/Phenol (Menthol/Lanolin/Calamine/Znox 113 Gm Tube) 1 applic TOPICAL TID [facility]; Protocol Last Admin: 08/19/20 06:39 Dose: Not Given Documented by: Carvedilol (Carvedilol 25 Mg Tablet) 25 mg PO BID [facility] Last Admin: 08/19/20 08:31 Dose: 25 mg Documented by: Dextrose (Dextrose 50%-Water 25 Gm/50 Ml Disp.Syrin) 0 gm IV X1 PRN; Protocol PRN Reason: Hypoglycemia Enoxaparin Sodium (Enoxaparin 40 Mg/0.4 Ml Syringe) 40 mg SC DAILY [facility] Last Admin: 08/17/20 23:03 Dose: Not Given Documented by: Glucagon (Glucagon 1 Mg/Ml Syringe) 1 mg IM .X1 PRN PRN Reason: Hypoglycemia Vancomycin IV Pharmacy to Dose (1 each/ Sodium Chloride) 500 mls @ 250 mls/hr IV PRN PRN; Protocol PRN Reason: VANCOMYCIN DOSING Piperacillin Sod/Tazobactam (Sod 3.375 gm/ Sodium Chloride) 50 mls @ 12.5 mls/hr IV Q8 [facility] Last Infusion: 08/19/20 09:42 Dose: Infused Documented by: Vancomycin HCl (Vancomycin) 1,000 mg in 200 mls @ 200 mls/hr IV Q24H [facility] Last Infusion: 08/18/20 19:09 Dose: Infused Documented by: Dextrose/Sodium Chloride (Dextrose 5%/0.9% Nacl) 1,000 mls @ 100 mls/hr IV .Q10H [facility] Last Admin: 08/19/20 08:31 Dose: 100 mls/hr Documented by: Insulin Glargine (Insulin Glargine 100 Units/Ml Pen) 30 units SC BID [facility] Last Admin: 08/18/20 21:34 Dose: 30 units Documented by: Insulin Human Lispro (Insulin Lispro 100 Unit/Ml Insuln.Pen) 10 unit SC TIDCM [facility] Last Admin: 08/19/20 08:30 Dose: Not Given Documented by: Insulin Human Lispro (Insulin Lispro 100 Unit/Ml Insuln.Pen) 0 unit SC ACHS [facility]; Protocol Last Admin: 08/19/20 06:42 Dose: Not Given Documented by: Isosorbide Mononitrate (Isosorbide Mononitrate 60 Mg Tablet) 60 mg PO DAILY [facility] Last Admin: 08/18/20 10:18 Dose: Not Given Documented by: Isosorbide Mononitrate (Isosorbide Mononitrate 60 Mg Tablet) 120 mg PO QPM [facility] Last Admin: 08/18/20 21:33 Dose: 120 mg Documented by: Levothyroxine Sodium (Levothyroxine 75 Mcg Tablet) 75 mcg PO QHS [facility] Last Admin: 08/18/20 21:40 Dose: 75 mcg Documented by: Lisinopril (Lisinopril 10 Mg Tablet) 10 mg PO DAILY [facility] Last Admin: 08/18/20 10:18 Dose: Not Given Documented by: Melatonin (Melatonin 10 Mg Tablet) 10 mg PO QHS [facility] Metoclopramide HCl (Metoclopramide 10 Mg Tablet) 10 mg PO Q8H PRN PRN Reason: NAUSEA Last Admin: 08/18/20 18:49 Dose: 10 mg Documented by: Morphine Sulfate (Morphine 2 Mg/Ml Syringe) 2 - 4 mg IV Q3H PRN PRN PRN Reason: Pain Score 6-10 Last Admin: 08/19/20 08:31 Dose: 2 mg Documented by: Morphine Sulfate (Morphine (Oral Solution) 10mg/0.5ml Syringe) 6 mg PO Q6H PRN PRN PRN Reason: PAIN 1-10 OR FEVER Last Admin: 08/18/20 18:49 Dose: 6 mg Documented by: Nitroglycerin (Nitroglycerin (Inpatient Use) 0.4 Mg Tab.Subl) 0.4 mg SL Q5M PRN PRN Reason: CARDIAC/CHEST PAIN Nutritional Formula ([facility]ut[facility] ([facility]) [facility]) [facility] Last Admin: 08/19/20 08:11 Dose: Not Given Documented by: Pancrelipase (Creon 24,[address] Capsule) 1 capsule PO BIDCM [facility] Last Admin: 08/19/20 08:11 Dose: Not Given Documented by: Pantoprazole Sodium (Pantoprazole Sodium 20 Mg Tablet) 20 mg PO DAILY [facility] Last Admin: 08/19/20 09:58 Dose: Not Given Documented by: Polyethylene Glycol (Polyethylene Glycol 3350 17 Gm Packet) 17 gm PO DAILY [facility] Last Admin: 08/19/20 09:58 Dose: Not Given Documented by: Pravastatin Sodium (Pravastatin 40 Mg Tablet) 40 mg PO QHS [facility] Last Admin: 08/18/20 21:33 Dose: 40 mg Documented by: Senna/Docusate Sodium (Senna/Docusate Sodium 1 Tablet) 2 tablet PO BID PRN PRN PRN Reason: Constipation Sodium Chloride (0.9% Saline Lock 10 Ml Syringe) 10 - 40 ml IV UD PRN PRN Reason: SALINE FLUSH Last Admin: 08/18/20 16:07 Dose: 10 ml Documented by: Tizanidine HCl (Tizanidine Hcl 2 Mg Tablet) 4 mg PO Q8H PRN PRN Reason: BACK PAIN Last Admin: 08/18/20 11:23 Dose: 4 mg Documented by: Trazodone HCl (Trazodone 100 Mg Tablet) 100 mg PO QHS PRN PRN Reason: SLEEP Last Admin: 08/18/20 21:44 Dose: 100 mg Documented by: Venlafaxine HCl (Venlafaxine Hcl 100 Mg Tablet) 100 mg PO BID [facility] Last Admin: 08/19/20 09:57 Dose: Not Given Documented by: Medical Necessity - Tobacco Use Smoking Status: Never smoker Assessment/Plan All Active Problems (Last Reviewed 06/10/20 @ 21:[address] Judson Massey MD) Diabetic infection of left foot (Acute) Abscess of left foot (Acute) Cellulitis of left lower limb (Acute) Ulcer of right foot with necrosis of bone (Resolved) Chest pain (Acute) Decubitus ulcer of sacral region, stage 2 (Resolved) 1. Acute, recurrent infected left foot ulcer, Charcot deformity-podiatry and ID following. On IV Zosyn and IV vancomycin. Previous incision and drainage left foot with widespread debridement 04/15/2020. Cultures at that time grew multiple organisms including strep, Pseudomonas and staph. Wound RN consult. MRI without osteo or abscess. PT/OT. Repeat wound cultures pending. Plan for OR per podiatry due to worsening appearance. 1. CAD with history of CABG and stents- Prior heart cath November 2018 which demonstrated mid RCA lesion 65% stenosis, FFR was done with no PCI. Stress echo June 2019 negative for ischemia. Continue medical management including aspirin, carvedilol, statin, isosorbide. Hold Plavix given plans for surgical intervention. 3. Chronic kidney disease stage IIIa-at baseline, trend BMP. 4. Type 2 diabetes mellitus- Continue home insulin regimen. Accu-Cheks with sliding scale insulin. Hemoglobin A1c January 2020 7.8%. 5. Hypertension-stable, continue Norvasc, Coreg, lisinopril, isosorbide. 6. GERD-continue PPI. 7. Hypothyroidism-continue Synthroid. 8. PVD-continue aspirin, Plavix, statin. 9. Chronic microcytic anemia/iron deficiency anemia-stable. 10. Anxiety-uses CBD oil as needed. 11. Chronic severe malnutrition-dietitian consult. DVT prophylaxis-Lovenox subcu. This patient was seen by CLIFFORD Grayson under the supervision of Dr. Cheek.
[2020-08-19 11:30] LABS: Bedside Glucose 170 mg/dL (70-110)
[2020-08-19] MEDS: 0.9% Saline Lock 10 ML Syringe IV (12:08)
--- NOTE | 2020-08-19 12:20 | PCM.HP.ID ---
Problem List (1) Diabetic infection of left foot Status: Acute Reason for Consult: foot infection Consulted by: Dr. Cheek History of Present Illness: The patient is a 75 year old F with recurrent DM foot infection, presented 08/17 with about 4 days of worsening L foot redness, ulceration, drainage, and pain. No fever, no n/v/d, no recent abx. Came to hospital, admitted on vanc/zosyn, feeling better, OR planned for today. Had gotten 2nd dose covid vaccine middle of last week, had some aches, headache, fatigue. Full ROS performed and neg except as noted above. - Medical History Past Medical History (Chronic Problems): Chronic Problems (Last Reviewed 06/10/20 @ 21:[address] 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) Debility (Chronic) Diabetes mellitus type 2 in obese (Chronic) Depression (Chronic) Allergic rhinitis (Chronic) Gout (Chronic) Muscle spasm (Chronic) Insomnia (Chronic) Nonhealing surgical wound (Chronic) Type 2 diabetes mellitus without complication (Chronic) Obesity (Chronic) Vitamin D deficiency (Chronic) Ulcer of right foot with fat layer exposed (Chronic) Peripheral arterial occlusive disease (Chronic) Charcot's joint of left foot (Chronic) Type 2 diabetes mellitus with diabetic polyneuropathy (Chronic) Ulcer of left foot with fat layer exposed (Chronic) Recurrent Ulcer of abdomen wall with fat layer exposed (Chronic) History of CVA (cerebrovascular accident) (Chronic) Stented coronary artery (Chronic 12/03/18) PTCA and YASIR to proximal and distal CX per Dr. Hatfield @ [facility]:(Promus Premier 4.0 X 12 mm L2 stent from distal left main into proximal LCX; Promus Premier RX 2.25 X 12 mm L1 stent in distal LCX) 12/03/2018:Triple vessel CAD of the LAD, LCX, RCA Successful PTCA/YASIR mid LCX with a 2.5 x 20 Promus Synergy stent; 85%-->0-%, no dissection. 12/24/18:FFR of RCA=0.97, negative, left for medical managemen History of coronary artery bypass graft (Chronic) CABG X 3 vessels [facility]:DANIEL to LAD, reverse SVG to dx and to 2nd OM per Dr. Borjas @ [facility] 09/09/2014 Atherosclerotic heart disease of [place] coronary artery without angina pectoris (Chronic) CABG X 3 vessels [facility]: DANIEL to LAD, reverse SVG to dx and to 2nd OM per Dr. Borjas @ [facility] 09/09/2014; PTCA/YASIR to Left main, LAD, and OM1 per Dr. Hatfield 12/21/2014; History of stroke (Chronic) Carotid artery disease (Chronic) Peripheral vascular disease (Chronic) Hyperlipidemia (Chronic) Coronary artery disease (Chronic) Hypothyroidism (Chronic) Iron deficiency anemia (Chronic) GERD (gastroesophageal reflux disease) (Chronic) Allergies/Adverse Reactions: Allergies doxycycline Allergy (Severe, Verified 08/17/20 15:19) all over body hives and itching atorvastatin calcium [From Lipitor] Allergy (Verified 08/17/20 15:19) Unknown bupropion HCl [From Wellbutrin] Allergy (Verified 08/17/20 15:19) Unknown mannitol [From Reclast] Allergy (Verified 08/17/20 15:19) joint pain, unable to breathe, unable to walk propoxyphene napsylate [From Darvocet-N 100] Allergy (Verified 08/17/20 15:19) Unknown Quinolones Allergy (Verified 08/17/20 15:19) Unknown Tetanus Vaccines and Toxoid [Tetanus Vaccines & Toxoid] Allergy (Verified 08/17/20 15:19) Chest tightness tizanidine Allergy (Verified 08/17/20 15:19) Unknown zoledronic acid [From Reclast] Allergy (Verified 08/17/20 15:19) joint pain,unable to breathe, unaable to walk JOINT PAIN,UNABLE TO BREATHE,UNABLE TO WALK pravastatin Adverse Reaction (Severe, Verified 08/17/20 15:19) Myalgias gemfibrozil Adverse Reaction (Intermediate, Verified 08/17/20 15:19) Unknown NSAIDS (Non-Steroidal Anti-Inflamma Adverse Reaction (Verified 08/17/20 15:19) Other Home Medications: Ambulatory Orders Medication Instructions Recorded Pravastatin Sodium 40 mg PO QHS 03/10/17 amlodipine 5 mg tablet 5 mg PO DAILY tab 05/05/18 Esomeprazole Magnesium 20 mg PO DAILY 09/21/19 clopidogrel 75 mg tablet 75 mg PO DAILY #90 tab 11/23/19 Allopurinol 100 mg PO DAILY 03/17/20 Calcium Citrate 200 mg PO BID #0 03/17/20 insulin detemir U-100 100 unit/mL 34 unit SC BID ml 03/24/20 (3 mL) subcutaneous pen aspirin 81 mg tablet,delayed 81 mg PO DAILY 04/05/20 release cbd 1 dose PO 4X/DAY PRN 04/05/20 [id number] 1 cap PO BID cap 04/05/20 24,000-76,000-120,000 unit capsule,delayed rel Menthol/Lanolin/Calamine/Znox 1 applic TOPICAL TID 04/19/20 [Calmoseptine Ointment] Acetaminophen [Tylenol] 1,000 mg PO Q6H PRN PRN tab 04/25/20 Nitroglycerin (INPATIENT USE) 0.4 mg SUBLINGUAL Q5M PRN tab.subl 04/25/20 [Nitrostat] Carvedilol 25 mg PO BID 08/17/20 Insulin Aspart [Novolog Flexpen] 12 units SQ TIDCM 08/17/20 Isosorbide Mononitrate [Isosorbide 60 mg PO DAILY 08/17/20 Mononitrate ER] Isosorbide Mononitrate [Isosorbide 120 mg PO DAILY 08/17/20 Mononitrate ER] Levothyroxine Sodium 75 mcg PO QHS 08/17/20 Linaclotide [Linzess] 72 mcg PO DAILY 08/17/20 Lisinopril 10 mg PO DAILY 08/17/20 Melatonin 6 mg PO QHS 08/17/20 Metoclopramide HCl 10 mg PO Q8H PRN 08/17/20 Morphine Sulfate 3 ml PO Q6H PRN PRN 08/17/20 Multivitamin/Iron/Folic Acid [Cvs 0.5 tablet PO BID 08/17/20 Spectravite Ultra Women Tb] Nutritional Supplement [Blue - 1 packet PO BIDCM 08/17/20 ORANGE FLAVOR] Tizanidine HCl 4 mg PO Q8H PRN 08/17/20 Trazodone HCl 100 mg PO QHS PRN 08/17/20 Tryptophan [l-Tryptophan] 500 mg PO DINNER 08/17/20 Venlafaxine HCl 100 mg PO BID 08/17/20 Wheat Dextrin [Benefiber] 15 ml PO DAILY 08/17/20 - Social History Tobacco Use: non-smoker Vital Signs Temp Pulse Resp BP Pulse Ox 99.0 F 70 18 148/67 H 97 08/19/20 08:13 08/19/20 08:13 08/19/20 08:13 08/19/20 08:13 08/19/20 08:13 Oxygen Delivery Method Room Air Weight: 76.8 kg Body Mass Index (BMI) 29.0 Finger Stick Blood Glucose 193 Microbiology Past 72 Hours 08/17/20 16:50 Bacteria Detection (PCR) - Final Blood Culture (Wb) - Other Coag Negative Staph Blood Culture - Preliminary Coag Negative Staph 08/19/20 08:50 SARS-CoV-2 Antigen (Rapid) - Final Mucosa - Nose Laboratory Tests Past 24 Hrs 08/18/20 06:25 Hemoglobin A1c 7.7 H - Other Studies Radiology: [] reviewed Other Studies: [] Route of nutrition/ use of supplements: [] Nutritional Intake: [] IV Site: [] Maloney Catheter: [] - Physical Exam General: Alert, Oriented x3, Cooperative, No apparent distress HEENT: Atraumatic, PERRLA, EOMI Neck: Supple, No Nodes Lungs: Clear to auscultation, Normal air movement Cardiovascular: Regular rate, Regular Rhythm Abdomen: Soft, Non Tender, Non-Distended Extremities: Edema Skin: Ulcer/ Wound - reviewed photo IV Site: PICC, without redness Musculoskeletal: No Tenderness to Palpation of Joints or Extremities Neurological: Cranial nerves II-XII grossly intact - Assessment/Plan Antibiotics: [] Assessment/Plan: [] Active and Suspected Problems (Last Reviewed 06/10/20 @ 21:[address] Judson Massey MD) Diabetic infection of left foot (Acute) Abscess of left foot (Acute) Cellulitis of left lower limb (Acute) Chest pain (Acute) DM L foot infection - wound cx with GBS, rare staph. MRSA pcr neg. 1/2 bcx with CoNS, possible contaminant. OR today. MRI showed no osteo. Cont vanc, narrow zosyn to unasyn. Will follow, thank you
--- NOTE | 2020-08-19 15:26 | PCM.OPRPT ---
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 possible abscess left foot. hx charcot foot deformity. DM2 Post-Operative Diagnosis: left foot ulcer. abscess left foot. hx charcot foot deformity. DM2 Surgery/Procedure Performed:: debridement of left foot ulcer, drainage of abscess left foot Description of Surgical Findings:: tourniquet: left ankle tourniquet 250mmHg, not used local anesthesia: 20cc 1% lidocaine plain and 0.5% bupivacaine plain in a 1:1 mix abscess with 10cc purulent drainage 1/4 iodoform packing 3-0 nylon versajet setting 8 disbursing agent: Annia Zayas - Surgeon: Annia Zayas DPM 1st assist: Marleen Kathleen PGY3 Type of Anesthesia:: Local MAC Specimen's removed: swab culture left foot Estimated Blood Loss (mL): 50cc Description of Procedure: Indication for procedure: Patient is a 75-year-old female who presents to the emergency department for admittance from the wound care center for worsening left foot ulceration with purulent drainage noted. Patient was admitted for further work-up. Patient was started on IV antibiotics and MRI was obtained which showed no abscess or underlying bone infection. Her wound and blood cultures are positive. Patient clinically looked worse today so decision was made to take patient to the OR for cleanout of her ulceration. This has been a longstanding ulceration that she has dealt with on and off to the left foot. Patient has Charcot foot deformity and utilizes a UPPER [place] boot to help offload the ulceration site. Discussed possibility of COVID exposure. Patient had all risk benefits alternatives the complications including but not limited to infection, delayed healing, nonhealing, need for further surgery or amputation was discussed with the patient. No guarantees were given or implied. Patient agreed to proceed with the procedure. All questions were answered. Description of procedure: Patient was seen in the preoperative holding area where chart was reviewed and patient was examined and all questions were answered to patient satisfaction. Patient then transferred to the OR and placed on the OR table in supine position. After administration of IV line IV sedation additional local anesthesia was injected in an ankle type fashion. A well-padded ankle tourniquet was applied but not inflated at this time. The operative foot and ankle were then prepped and draped in the usual sterile fashion. A versa jet was utilized to debride the ulcer into the level of fat. Predebridement measurements were 6x1x0.4cm and post debridment measurements were 7x2.5x0.8cm. A 15 blade was then utilized to circumscribe the ulcerations. There was noted tracking of the wound distal medial and proximal medial with purulent drainage expressed. About 10cc of purulent drainage expressed. A bovie was utilized to cauterize bleeders. The wound didn't probe to bone. All pockets of pus were expressed and no further purulent drainage or probing was encountered. Site was then examined and all remaining devitalized tissue was removed no remaining infection or purulent drainage was seen. The site was then flushed with copious amounts of normal sterile saline. Deep swab cultures were then obtained post lavage and sent to microbiology. Site was then partially closed with nylon for skin closure in horizontal mattress fashion. The remaining wound and its tracking areas were packed with 1/4 iodoform packing. It was then dressed with betadine soaked adaptic, 4 x 4's, ABDs, kerlix, and Arjun wrap. Patient was then sent to PACU with vital signs status intact. Podiatry will follow up with patient. Patient be readmitted to the floor. - Complications none - Admit VTE Documentation VTE Present on Admission: Yes VTE Mechan Device Prophylaxis: SCD's VTE Pharm Prophylaxis ordered?: Yes
[2020-08-19 16:21] LABS: Bedside Glucose 165 mg/dL (70-110)
[2020-08-19] MEDS: Lidocaine 1% (30 ml sdv) 30 ML Vial (16:40)
[2020-08-19] MEDS: Bupivacaine Mpf 0.5% 30 ML VIAL (16:40)
[2020-08-19 18:33] LABS: Vancomycin, Trough Level 11.4 ug/mL (5.0-15.0)
[2020-08-19] MEDS: Lisinopril 10 MG Tablet PO (18:47)
[2020-08-19] MEDS: Isosorbide Mononitrate 60 MG Tablet 120 MG PO (18:48)
[2020-08-19] MEDS: amLODIPine 5 MG Tablet PO (18:50)
--- NOTE | 2020-08-19 19:01 | PCM.RX.CS ---
Consult Pharmacy has been consulted to manage selected antiobiotic: Vancomycin Type of Consult: Follow-up Suspected Infection: Skin/Soft tissue Labs: Sodium 140 mmol/L (136-145) 08/18/20 06:25 Potassium 4.1 mmol/L (3.5-5.1) 08/18/20 06:25 Chloride 115 mmol/L (98-107) H 08/18/20 06:25 Carbon Dioxide 16.0 mmol/L (21.0-32.0) L 08/18/20 06:25 Anion Gap 9 (5-15) 08/18/20 06:25 BUN 37 mg/dL (7-18) H 08/18/20 06:25 Creatinine 1.17 mg/dL (0.55-1.02) H 08/18/20 06:25 Est GFR (MDRD) Af Amer 58 mL/min (>60) L 08/18/20 06:25 Est GFR (MDRD) Non-Af 48 mL/min (>60) L 08/18/20 06:25 BUN/Creatinine Ratio 31.6 RATIO (10-20) H 08/18/20 06:25 Glucose 121 mg/dL (74-106) H 08/18/20 06:25 Vancomycin Trough 11.4 ug/mL (5.0-15.0) 08/19/20 17:40 Microbiology: Microbiology 08/17/20 16:50 Blood Culture (Wb) - Other Bacteria Detection (PCR) - Final Coag Negative Staph 08/17/20 16:50 Blood Culture (Wb) - Other Blood Culture - Preliminary Coag Negative Staph 08/19/20 08:50 Mucosa - Nose SARS-CoV-2 Antigen (Rapid) - Final Goal Trough: 15-20 mcg/mL Pharmacy Plan for Drug Dosing: VANCOMYCIN LEVEL RECEIVED Current Vancomycin Dose: 1000MG Q24 Number of Doses Received: 1 X 1000MG, 1 X 2000MG Vancomycin Level: 11.4 MG/DL Hours Since Last Dose: 12 Renal Function: NNL Renal Function Trend: ? - LEVEL SCHEDULED FOR TOMORROW AM Lab/Micro: CoNS in Vancomycin Plan/Comments: Rhianna D/C'ed this AM then restarted. Trough re-entered based on previous schedule. Will increase dose to 1250mg Q24H to start tonight at 1900. Will re-draw a trough prior to 3rd dose of new regimen. Pharmacy Service will continue to monitor and adjust dosing as required. Labs to be done on [date and time ordered]: 08/21/20 @ 9215
[2020-08-19] MEDS: Pravastatin 40 MG Tablet PO (21:29)
[2020-08-19] MEDS: Levothyroxine 75 MCG Tablet PO (21:30)
[2020-08-19] MEDS: MELATONIN 10 MG TABLET PO (21:30)
[2020-08-19] MEDS: Acetaminophen 325 MG Tablet 650 MG PO (21:35)
[2020-08-19] MEDS: Insulin Lispro 100 UNIT/ML INSULN.PEN SC (21:36)
[2020-08-19] MEDS: Menthol/Lanolin/Calamine/Znox 113 GM Tube 1 APPLIC TOPICAL (21:38)
[2020-08-19 21:46] LABS: Bedside Glucose 329 mg/dL (70-110)
[2020-08-19] MEDS: traZODone 100 MG Tablet PO (22:23)
[2020-08-20] MEDS: Morphine 2 MG/ML Syringe IV ×4 (03:15→21:49)
[2020-08-20] MEDS: 0.9% Saline Lock 10 ML Syringe IV ×2 (03:16→06:24)
[2020-08-20] MEDS: tiZANidine HCl 2 MG Tablet 4 MG PO ×3 (03:19→18:48)
[2020-08-20 05:16] VITALS: BP 152/70; PULSE 65; RESP 16; TEMP 36.5; O2SAT 97
[2020-08-20 05:51] LABS: Hematocrit 34.1 % (37-47); Hemoglobin 11.2 g/dL (12.0-15.0); Mean Corp Hgb Conc 32.8 g/dL (32-36); Mean Corpuscular Hgb 29.4 pg (27.0-32.0); Mean Corpuscular Volume 89.5 fL (81-99); Mean Platelet Vol. 9.4 fl (6.2-12.0); Platelet Count 199 K/mm3 (150-450); RBC Distribution Width CV 14.9 % (11.6-14.6); RBC Distribution Width SD 48.7 fl (35.1-43.9); Red Blood Count 3.81 M/mm3 (4.2-5.4); White Blood Count 8.7 K/mm3 (4.4-11.0)
[2020-08-20 06:08] LABS: Anion Gap 7 (5-15); BUN 16 mg/dL (7-18); BUN/Creat Ratio 16.3 RATIO (10-20); Calcium,Total 7.5 mg/dL (8.5-10.1); Chloride 118 mmol/L (98-107); Creatinine, Serum 0.98 mg/dL (0.55-1.02); EST Glomerular Filtration Rate 59 mL/min (>60); Est Glom Filt Rate - Afr Amer 72 mL/min (>60); Estimated Creatinine Clearance 44.15 ml/min; Glucose 171 mg/dL (74-106); Potassium 3.9 mmol/L (3.5-5.1); Sodium Level 144 mmol/L (136-145)
[2020-08-20] MEDS: Dextrose 5%/0.9% NaCl 1,000 ML 100 ML IV ×2 (06:12→19:19)
[2020-08-20] MEDS: Insulin Lispro 100 UNIT/ML INSULN.PEN SC ×3 (06:23→21:52)
[2020-08-20 06:35] LABS: Bedside Glucose 171 mg/dL (70-110)
[2020-08-20 08:40] VITALS: O2SAT 96
[2020-08-20] MEDS: Polyethylene Glycol 3350 17 GM PACKET PO (08:43)
[2020-08-20] MEDS: Creon 24,000 unit DR Capsule 1 CAP PO ×2 (08:43→17:17)
[2020-08-20] MEDS: Isosorbide Mononitrate 60 MG Tablet PO (08:43)
[2020-08-20] MEDS: Carvedilol 25 MG Tablet PO ×2 (08:43→20:28)
[2020-08-20] MEDS: Aspirin E.C. 81 MG Tablet PO (08:43)
[2020-08-20] MEDS: Allopurinol 100 MG Tablet PO (08:43)
[2020-08-20] MEDS: Lisinopril 10 MG Tablet PO (08:44)
[2020-08-20] MEDS: amLODIPine 5 MG Tablet PO (08:44)
[2020-08-20] MEDS: Pantoprazole Sodium 20 MG Tablet PO (08:45)
[2020-08-20] MEDS: Acetaminophen 325 MG Tablet 650 MG PO (08:51)
[2020-08-20] MEDS: Insulin Lispro 100 UNIT/ML INSULN.PEN 10 UNIT SC ×3 (08:56→17:17)
[2020-08-20 09:01] VITALS: BP 149/58; PULSE 68; RESP 16; TEMP 36.7; O2SAT 99
--- NOTE | 2020-08-20 09:26 | PCM.PROGNOTE ---
Patient Problems: Active and Suspected Problems (Last Reviewed 06/10/20 @ 21:[address] Judson Massey MD) Diabetic infection of left foot (Acute) Abscess of left foot (Acute) Cellulitis of left lower limb (Acute) Chest pain (Acute) Subjective: Patient seen and examined resting comfortably. Patient denies any new pedal complaints. Patient denies any nausea, fever, chills, chest pain, shortness of breath, cough, streaking, purulence, vomiting. Patient reports feeling better with less pain noted to her foot - Physical Exam Vitals/I&O's: Vital Signs Temp Pulse Resp BP Pulse Ox 98.0 F 68 16 149/58 H 99 08/20/20 09:01 08/20/20 09:01 08/20/20 09:01 08/20/20 09:01 08/20/20 09:01 Oxygen Delivery Method Room Air Weight: 76.8 kg Body Mass Index (BMI) 29.0 Finger Stick Blood Glucose 193 Intake and Output for Last 24 Hours 08/18/20 08/19/20 08/20/20 23:59 23:59 23:59 Intake Total 4367.5 / 4367.5 3019.0 / 3019.0 1000 / 1000 Output Total 3250 / 3250 1500 / 1700 1200 / 1200 Balance 1117.5 / 1117.5 1519.0 / 1319.0 -200 / -200 General: Alert, Oriented x3 HEENT: Atraumatic Extremities: No clubbing, No cyanosis, Capillary Refill Less than 3 Seconds, No Calf Tenderness, Diminished Peripheral Pulses, Edema, Tenderness - to ulcerations Skin: Ulcer/ Wound - Left plantar foot ulcer. Packing replaced to distal and proximal aspect of incision with tracking noted. Less erythema edema and pain to palpation noted. Sanguinous drainage noted. No further purulent drainage expressed., Incision - Central aspect of incision with sutures intact skin well coapted Musculoskeletal: - - Left foot Charcot foot deformity with plantar foot ulcers secondary to deformity Neurological: - - Decrease in epicritic sensation consistent with neuropathy Psych/Mental Status: Normal Affect, Appropriate Microbiology Past 72 Hours 08/17/20 16:51 Blood Culture (Wb) - Other Blood Culture - Preliminary No growth in 48 hours. 08/17/20 16:50 Blood Culture (Wb) - Other Bacteria Detection (PCR) - Final Coag Negative Staph 08/17/20 16:50 Blood Culture (Wb) - Other Blood Culture - Preliminary Coag Negative Staph 08/19/20 08:50 Mucosa - Nose SARS-CoV-2 Antigen (Rapid) - Final Laboratory Results 08/19/20 11:13: POC Glucose 170 H 08/19/20 16:17: POC Glucose 165 H 08/19/20 17:40: Vancomycin Trough 11.4 08/19/20 21:28: POC Glucose 329 H 08/20/20 05:30: WBC 8.7, RBC 3.81 L, Hgb 11.2 L, Hct 34.1 L, MCV 89.5, MCH 29.4, MCHC 32.8, RDW Std Deviation 48.7 H, RDW Coeff of Marco 14.9 H, Plt Count 199, MPV 9.4 08/20/20 05:30: Sodium 144, Potassium 3.9, Chloride 118 H, Carbon Dioxide 19.0 L, Anion Gap 7, BUN 16, Creatinine 0.98, Estim Creat Clear Calc 44.15, Est GFR (MDRD) Af Amer 72, Est GFR (MDRD) Non-Af 59 L, BUN/Creatinine Ratio 16.3, Glucose 171 H, Calcium 7.5 L 08/20/20 06:18: POC Glucose 171 H Current Medications Acetaminophen (Acetaminophen 325 Mg Tablet) 650 mg PO Q6H PRN PRN PRN Reason: Pain Score 1-10 /Temp>100.7 Last Admin: 08/20/20 08:51 Dose: 650 mg Documented by: Allopurinol (Allopurinol 100 Mg Tablet) 100 mg PO DAILY [facility] Last Admin: 08/20/20 08:43 Dose: 100 mg Documented by: Amlodipine Besylate (Amlodipine 5 Mg Tablet) 5 mg PO DAILY [facility] Last Admin: 08/20/20 08:44 Dose: 5 mg Documented by: Aspirin (Aspirin E.C. 81 Mg Tablet) [facility] Last Admin: 08/20/20 08:43 Dose: 81 mg Documented by: Bisacodyl (Bisacodyl 5 Mg Tablet) 10 mg PO DAILY PRN PRN PRN Reason: Constipation Calamine/Phenol (Menthol/Lanolin/Calamine/Znox 113 Gm Tube) 1 applic TOPICAL TID [facility]; Protocol Last Admin: 08/20/20 06:15 Dose: Not Given Documented by: Carvedilol (Carvedilol 25 Mg Tablet) 25 mg PO BID [facility] Last Admin: 08/20/20 08:43 Dose: 25 mg Documented by: Dextrose (Dextrose 50%-Water 25 Gm/50 Ml Disp.Syrin) 0 gm IV X1 PRN; Protocol PRN Reason: Hypoglycemia Enoxaparin Sodium (Enoxaparin 40 Mg/0.4 Ml Syringe) 40 mg SC DAILY [facility] Last Admin: 08/17/20 23:03 Dose: Not Given Documented by: Glucagon (Glucagon 1 Mg/Ml Syringe) 1 mg IM .X1 PRN PRN Reason: Hypoglycemia Dextrose/Sodium Chloride (Dextrose 5%/0.9% Nacl) 1,000 mls @ 100 mls/hr IV .Q10H [facility] Last Admin: 08/20/20 06:12 Dose: 100 mls/hr Documented by: Ampicillin Sodium/Sulbactam (Sodium 3 gm/ Sodium Chloride) 112 mls @ 150 mls/hr IV Q8 [facility] Last Admin: 08/20/20 06:12 Dose: 150 mls/hr Documented by: Vancomycin IV Pharmacy to Dose (1 each/ Sodium Chloride) 500 mls @ 250 mls/hr IV X1 PRN; Protocol PRN Reason: Rx to Dose Vancomycin HCl 1,250 mg/ (Sodium Chloride) 275 mls @ 167 mls/hr IV Q24H [facility] Last Infusion: 08/19/20 21:31 Dose: Infused Documented by: Insulin Glargine (Insulin Glargine 100 Units/Ml Pen) 30 units SC BID [facility] Last Admin: 08/20/20 08:55 Dose: 30 units Documented by: Insulin Human Lispro (Insulin Lispro 100 Unit/Ml Insuln.Pen) 10 unit SC TIDCM [facility] Last Admin: 08/20/20 08:56 Dose: 6 u Documented by: Insulin Human Lispro (Insulin Lispro 100 Unit/Ml Insuln.Pen) 0 unit SC ACHS [facility]; Protocol Last Admin: 08/20/20 06:23 Dose: 2 units Documented by: Isosorbide Mononitrate (Isosorbide Mononitrate 60 Mg Tablet) 60 mg PO DAILY [facility] Last Admin: 08/20/20 08:43 Dose: 60 mg Documented by: Isosorbide Mononitrate (Isosorbide Mononitrate 60 Mg Tablet) 120 mg PO QPM [facility] Last Admin: 08/19/20 18:48 Dose: 120 mg Documented by: Levothyroxine Sodium (Levothyroxine 75 Mcg Tablet) 75 mcg PO QHS [facility] Last Admin: 08/19/20 21:30 Dose: 75 mcg Documented by: Lisinopril (Lisinopril 10 Mg Tablet) 10 mg PO DAILY [facility] Last Admin: 08/20/20 08:44 Dose: 10 mg Documented by: Melatonin (Melatonin 10 Mg Tablet) 10 mg PO QHS [facility] Last Admin: 08/19/20 21:30 Dose: 10 mg Documented by: Metoclopramide HCl (Metoclopramide 10 Mg Tablet) 10 mg PO Q8H PRN PRN Reason: NAUSEA Last Admin: 08/18/20 18:49 Dose: 10 mg Documented by: Morphine Sulfate (Morphine 2 Mg/Ml Syringe) 2 - 4 mg IV Q3H PRN PRN PRN Reason: Pain Score 6-10 Last Admin: 08/20/20 06:24 Dose: 2 mg Documented by: Morphine Sulfate (Morphine (Oral Solution) 10mg/0.5ml Syringe) 6 mg PO Q6H PRN PRN PRN Reason: PAIN 1-10 OR FEVER Last Admin: 08/18/20 18:49 Dose: 6 mg Documented by: Nitroglycerin (Nitroglycerin (Inpatient Use) 0.4 Mg Tab.Subl) 0.4 mg SL Q5M PRN PRN Reason: CARDIAC/CHEST PAIN Nutritional Formula (Nutritional Supplement (Blue) Packet) 1 packet PO BIDCM [facility] Last Admin: 08/20/20 08:43 Dose: 1 packet Documented by: Pancrelipase (Creon 24,[address] Capsule) 1 capsule PO BIDCM [facility] Last Admin: 08/20/20 08:43 Dose: 1 capsule Documented by: Pantoprazole Sodium (Pantoprazole Sodium 20 Mg Tablet) 20 mg PO DAILY [facility] Last Admin: 08/20/20 08:45 Dose: 20 mg Documented by: Polyethylene Glycol (Polyethylene Glycol 3350 17 Gm Packet) 17 gm PO DAILY [facility] Last Admin: 08/20/20 08:43 Dose: 17 gm Documented by: Pravastatin Sodium (Pravastatin 40 Mg Tablet) 40 mg PO QHS [facility] Last Admin: 08/19/20 21:29 Dose: 40 mg Documented by: Senna/Docusate Sodium (Senna/Docusate Sodium 1 Tablet) 2 tablet PO BID PRN PRN PRN Reason: Constipation Sodium Chloride (0.9% Saline Lock 10 Ml Syringe) 10 - 40 ml IV UD PRN PRN Reason: SALINE FLUSH Last Admin: 08/20/20 06:24 Dose: 10 ml Documented by: Tizanidine HCl (Tizanidine Hcl 2 Mg Tablet) 4 mg PO Q8H PRN PRN Reason: BACK PAIN Last Admin: 08/20/20 03:19 Dose: 4 mg Documented by: Trazodone HCl (Trazodone 100 Mg Tablet) 100 mg PO QHS PRN PRN Reason: SLEEP Last Admin: 08/19/20 22:23 Dose: 100 mg Documented by: Venlafaxine HCl (Venlafaxine Hcl 100 Mg Tablet) 100 mg PO BID [facility] Last Admin: 08/20/20 08:43 Dose: 100 mg Documented by: Medical Necessity - Tobacco Use Smoking Status: Never smoker Assessment/Plan All Active Problems (Last Reviewed 06/10/20 @ 21:[address] Judson Massey MD) Diabetic infection of left foot (Acute) Abscess of left foot (Acute) Cellulitis of left lower limb (Acute) Ulcer of right foot with necrosis of bone (Resolved) Chest pain (Acute) Decubitus ulcer of sacral region, stage 2 (Resolved) Left foot cellulitis Left foot ulcer abscess left foot s/p debridement in OR 08/19/20 Charcot foot deformity left foot Diabetes with neuropathy Patient seen and examined bedside. Wound to plantar left foot has improved after surgery. m No further purulent drainage noted. X-rays were obtained and reviewed showing no acute fracture dislocation. MRI obtained and showed Cellulitis of the plantar aspect of the foot but no abscess or osteomyelitis. 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 Continue wound care daily dressing changes with 1/4 iodoform packing and silver DSD Nonweightbearing left lower extremity White blood cell 8.7, ESR 37, CRP 18.4, cultures positive for Streptococcus agalactiae, Streptococcus caprae, gram-positive cocci possible Enterococcus from [facility] blood cultures showing bacterial growth. Follow results. Likely contaminant Please contact if any questions or concerns. Annia Zayas DPM [facility] [phone]
--- NOTE | 2020-08-20 09:52 | PCM.PROGNOTE ---
Patient Problems: Active and Suspected Problems (Last Reviewed 06/10/20 @ 21:[address] Judson Massey MD) Diabetic infection of left foot (Acute) Abscess of left foot (Acute) Cellulitis of left lower limb (Acute) Chest pain (Acute) Subjective: Patient seen and examined. Complains of back pain which she states is chronic however is now worsened from her baseline. She reports intermittent throbbing left foot. Denies fever, chills. - Physical Exam Vitals/I&O's: Vital Signs Temp Pulse Resp BP Pulse Ox 98.0 F 68 16 149/58 H 99 08/20/20 09:01 08/20/20 09:01 08/20/20 09:01 08/20/20 09:01 08/20/20 09:01 Oxygen Delivery Method Room Air Weight: 169 lb 5.04 oz Body Mass Index (BMI) 29.0 Finger Stick Blood Glucose 193 Intake and Output for Last 24 Hours 08/18/20 08/19/20 08/20/20 23:59 23:59 23:59 Intake Total 4367.5 / 4367.5 3019.0 / 3019.0 1000 / 1000 Output Total 3250 / 3250 1500 / 1700 1200 / 1200 Balance 1117.5 / 1117.5 1519.0 / 1319.0 -200 / -200 General: Alert, Oriented x3, Cooperative HEENT: Atraumatic, PERRLA, EOMI, Normocephalic Neck: Supple, No JVD, Negative Carotid Bruits Lungs: Clear to auscultation, Normal air movement Cardiovascular: Regular rate, No murmurs Abdomen: Bowel Sounds Present, Soft, Non Tender, Non-Distended Extremities: No clubbing, No cyanosis, No edema, Capillary Refill Less than 3 Seconds Skin: - - Left foot postop dressing intact Musculoskeletal: No Tenderness to Palpation of Joints or Extremities Neurological: Cranial nerves II-XII grossly intact, Neuro grossly intact Psych/Mental Status: Normal Affect, Appropriate Microbiology Past 72 Hours 08/17/20 16:51 Blood Culture (Wb) - Other Blood Culture - Preliminary No growth in 48 hours. 08/17/20 16:50 Blood Culture (Wb) - Other Bacteria Detection (PCR) - Final Coag Negative Staph 08/17/20 16:50 Blood Culture (Wb) - Other Blood Culture - Preliminary Coag Negative Staph 08/19/20 08:50 Mucosa - Nose SARS-CoV-2 Antigen (Rapid) - Final Laboratory Results 08/19/20 11:13: POC Glucose 170 H 08/19/20 16:17: POC Glucose 165 H 08/19/20 17:40: Vancomycin Trough 11.4 08/19/20 21:28: POC Glucose 329 H 08/20/20 05:30: WBC 8.7, RBC 3.81 L, Hgb 11.2 L, Hct 34.1 L, MCV 89.5, MCH 29.4, MCHC 32.8, RDW Std Deviation 48.7 H, RDW Coeff of Marco 14.9 H, Plt Count 199, MPV 9.4 08/20/20 05:30: Sodium 144, Potassium 3.9, Chloride 118 H, Carbon Dioxide 19.0 L, Anion Gap 7, BUN 16, Creatinine 0.98, Estim Creat Clear Calc 44.15, Est GFR (MDRD) Af Amer 72, Est GFR (MDRD) Non-Af 59 L, BUN/Creatinine Ratio 16.3, Glucose 171 H, Calcium 7.5 L 08/20/20 06:18: POC Glucose 171 H Current Medications Acetaminophen (Acetaminophen 325 Mg Tablet) 650 mg PO Q6H PRN PRN PRN Reason: Pain Score 1-10 /Temp>100.7 Last Admin: 08/20/20 08:51 Dose: 650 mg Documented by: Allopurinol (Allopurinol 100 Mg Tablet) 100 mg PO DAILY [facility] Last Admin: 08/20/20 08:43 Dose: 100 mg Documented by: Amlodipine Besylate (Amlodipine 5 Mg Tablet) 5 mg PO DAILY [facility] Last Admin: 08/20/20 08:44 Dose: 5 mg Documented by: Aspirin (A[facility]in E.C. 81 Mg Tablet) [facility] Last Admin: 08/20/20 08:43 Dose: 81 mg Documented by: Bisacodyl (Bisacodyl 5 Mg Tablet) 10 mg PO DAILY PRN PRN PRN Reason: Constipation Calamine/Phenol (Menthol/Lanolin/Calamine/Znox 113 Gm Tube) 1 applic TOPICAL TID [facility]; Protocol Last Admin: 08/20/20 06:15 Dose: Not Given Documented by: Carvedilol (Carvedilol 25 Mg Tablet) 25 mg PO BID [facility] Last Admin: 08/20/20 08:43 Dose: 25 mg Documented by: Dextrose (Dextrose 50%-Water 25 Gm/50 Ml Disp.Syrin) 0 gm IV X1 PRN; Protocol PRN Reason: Hypoglycemia Enoxaparin Sodium (Enoxaparin 40 Mg/0.4 Ml Syringe) 40 mg SC DAILY [facility] Last Admin: 08/17/20 23:03 Dose: Not Given Documented by: Glucagon (Glucagon 1 Mg/Ml Syringe) 1 mg IM .X1 PRN PRN Reason: Hypoglycemia Dextrose/Sodium Chloride (Dextrose 5%/0.9% Nacl) 1,000 mls @ 100 mls/hr IV .Q10H [facility] Last Admin: 08/20/20 06:12 Dose: 100 mls/hr Documented by: Ampicillin Sodium/Sulbactam (Sodium 3 gm/ Sodium Chloride) 112 mls @ 150 mls/hr IV Q8 [facility] Last Admin: 08/20/20 06:12 Dose: 150 mls/hr Documented by: Vancomycin IV Pharmacy to Dose (1 each/ Sodium Chloride) 500 mls @ 250 mls/hr IV X1 PRN; Protocol PRN Reason: Rx to Dose Vancomycin HCl 1,250 mg/ (Sodium Chloride) 275 mls @ 167 mls/hr IV Q24H [facility] Last Infusion: 08/19/20 21:31 Dose: Infused Documented by: Insulin Glargine (Insulin Glargine 100 Units/Ml Pen) 30 units SC BID [facility] Last Admin: 08/20/20 08:55 Dose: 30 units Documented by: Insulin Human Lispro (Insulin Lispro 100 Unit/Ml Insuln.Pen) 10 unit SC TIDCM [facility] Last Admin: 08/20/20 08:56 Dose: 6 u Documented by: Insulin Human Lispro (Insulin Lispro 100 Unit/Ml Insuln.Pen) 0 unit SC ACHS [facility]; Protocol Last Admin: 08/20/20 06:23 Dose: 2 units Documented by: Isosorbide Mononitrate (Isosorbide Mononitrate 60 Mg Tablet) 60 mg PO DAILY [facility] Last Admin: 08/20/20 08:43 Dose: 60 mg Documented by: Isosorbide Mononitrate (Isosorbide Mononitrate 60 Mg Tablet) 120 mg PO QPM [facility] Last Admin: 08/19/20 18:48 Dose: 120 mg Documented by: Levothyroxine Sodium (Levothyroxine 75 Mcg Tablet) 75 mcg PO QHS [facility] Last Admin: 08/19/20 21:30 Dose: 75 mcg Documented by: Lisinopril (Lisinopril 10 Mg Tablet) 10 mg PO DAILY [facility] Last Admin: 08/20/20 08:44 Dose: 10 mg Documented by: Melatonin (Melatonin 10 Mg Tablet) 10 mg PO QHS [facility] Last Admin: 08/19/20 21:30 Dose: 10 mg Documented by: Metoclopramide HCl (Metoclopramide 10 Mg Tablet) 10 mg PO Q8H PRN PRN Reason: NAUSEA Last Admin: 08/18/20 18:49 Dose: 10 mg Documented by: Morphine Sulfate (Morphine 2 Mg/Ml Syringe) 2 - 4 mg IV Q3H PRN PRN PRN Reason: Pain Score 6-10 Last Admin: 08/20/20 06:24 Dose: 2 mg Documented by: Morphine Sulfate (Morphine (Oral Solution) 10mg/0.5ml Syringe) 6 mg PO Q6H PRN PRN PRN Reason: PAIN 1-10 OR FEVER Last Admin: 08/18/20 18:49 Dose: 6 mg Documented by: Nitroglycerin (Nitroglycerin (Inpatient Use) 0.4 Mg Tab.Subl) 0.4 mg SL Q5M PRN PRN Reason: CARDIAC/CHEST PAIN Nutritional Formula (Nutritional Supp[facility] (Blue) Packet) [facility] Last Admin: 08/20/20 08:43 Dose: 1 packet Documented by: Pancrelipase (Creon 24,[address] Capsule) 1 capsule PO BIDCM [facility] Last Admin: 08/20/20 08:43 Dose: 1 capsule Documented by: Pantoprazole Sodium (Pantoprazole Sodium 20 Mg Tablet) 20 mg PO DAILY [facility] Last Admin: 08/20/20 08:45 Dose: 20 mg Documented by: Polyethylene Glycol (Polyethylene Glycol 3350 17 Gm Packet) 17 gm PO DAILY [facility] Last Admin: 08/20/20 08:43 Dose: 17 gm Documented by: Pravastatin Sodium (Pravastatin 40 Mg Tablet) 40 mg PO QHS [facility] Last Admin: 08/19/20 21:29 Dose: 40 mg Documented by: Senna/Docusate Sodium (Senna/Docusate Sodium 1 Tablet) 2 tablet PO BID PRN PRN PRN Reason: Constipation Sodium Chloride (0.9% Saline Lock 10 Ml Syringe) 10 - 40 ml IV UD PRN PRN Reason: SALINE FLUSH Last Admin: 08/20/20 06:24 Dose: 10 ml Documented by: Tizanidine HCl (Tizanidine Hcl 2 Mg Tablet) 4 mg PO Q8H PRN PRN Reason: BACK PAIN Last Admin: 08/20/20 03:19 Dose: 4 mg Documented by: Trazodone HCl (Trazodone 100 Mg Tablet) 100 mg PO QHS PRN PRN Reason: SLEEP Last Admin: 08/19/20 22:23 Dose: 100 mg Documented by: Venlafaxine HCl (Venlafaxine Hcl 100 Mg Tablet) 100 mg PO BID [facility] Last Admin: 08/20/20 08:43 Dose: 100 mg Documented by: Medical Necessity - Tobacco Use Smoking Status: Never smoker Assessment/Plan All Active Problems (Last Reviewed 06/10/20 @ 21:[address] Judson Massey MD) Diabetic infection of left foot (Acute) Abscess of left foot (Acute) Cellulitis of left lower limb (Acute) Ulcer of right foot with necrosis of bone (Resolved) Chest pain (Acute) Decubitus ulcer of sacral region, stage 2 (Resolved) 1. Acute, recurrent infected left foot ulcer, Charcot deformity-podiatry and ID following. On IV Zosyn and IV vancomycin. Previous incision and drainage left foot with widespread debridement 04/15/2020. Cultures at that time grew multiple organisms including strep, Pseudomonas and staph. Wound RN consult. MRI without osteo. PT/OT. Patient underwent debridement of left foot ulcer and left foot abscess 08/19/2020. Await repeat cultures. ID consulted. 1. CAD with history of CABG and stents- Prior heart cath November 2018 which demonstrated mid RCA lesion 65% stenosis, FFR was done with no PCI. Stress echo June 2019 negative for ischemia. Continue medical management including aspirin, carvedilol, statin, isosorbide. Resume Plavix when okay per podiatry. 3. Chronic kidney disease stage IIIa-at baseline, trend BMP. 4. Type 2 diabetes mellitus- Continue home insulin regimen. Accu-Cheks with sliding scale insulin. Hemoglobin A1c January 2020 7.8%. 5. Hypertension-stable, continue Norvasc, Coreg, lisinopril, isosorbide. 6. GERD-continue PPI. 7. Hypothyroidism-continue Synthroid. 8. PVD-continue aspirin, Plavix, statin. 9. Chronic microcytic anemia/iron deficiency anemia-stable. 10. Anxiety-uses CBD oil as needed. 11. Chronic severe malnutrition-dietitian consult. DVT prophylaxis-Lovenox subcu. This patient was seen by CLIFFORD Grayson under the supervision of Dr. Cheek.
[2020-08-20] MEDS: Lidocaine 5% Patch 2 PATCH TOPICAL (10:56)
[2020-08-20 12:15] LABS: Bedside Glucose 185 mg/dL (70-110)
[2020-08-20] MEDS: Menthol/Lanolin/Calamine/Znox 113 GM Tube 1 APPLIC TOPICAL (14:22)
[2020-08-20 15:00] VITALS: BP 169/53; PULSE 65; RESP 18; TEMP 36.4; O2SAT 98
[2020-08-20] MEDS: morphine (oral solution) 10MG/0.5ML Syringe 6 MG PO ×2 (16:09→23:33)
[2020-08-20 16:20] LABS: Bedside Glucose 137 mg/dL (70-110)
[2020-08-20 20:23] VITALS: BP 159/55; PULSE 78; RESP 18; TEMP 36.9; O2SAT 96
[2020-08-20] MEDS: Isosorbide Mononitrate 60 MG Tablet 120 MG PO (20:27)
[2020-08-20] MEDS: Pravastatin 40 MG Tablet PO (20:28)
[2020-08-20] MEDS: MELATONIN 10 MG TABLET PO (20:29)
[2020-08-20] MEDS: Levothyroxine 75 MCG Tablet PO (20:30)
[2020-08-20 21:46] LABS: Bedside Glucose 243 mg/dL (70-110)
[2020-08-20] MEDS: traZODone 100 MG Tablet PO (21:48)
[2020-08-21 02:57] VITALS: BP 153/72; PULSE 65; RESP 16; TEMP 36.9; O2SAT 94
[2020-08-21] MEDS: tiZANidine HCl 2 MG Tablet 4 MG PO ×3 (03:04→20:56)
[2020-08-21] MEDS: 0.9% Saline Lock 10 ML Syringe IV ×2 (06:07→15:24)
[2020-08-21 06:25] LABS: Bedside Glucose 78 mg/dL (70-110)
[2020-08-21 06:40] LABS: Hematocrit 30.3 % (37-47); Hemoglobin 10.4 g/dL (12.0-15.0); Mean Corp Hgb Conc 34.3 g/dL (32-36); Mean Corpuscular Hgb 29.7 pg (27.0-32.0); Mean Corpuscular Volume 86.6 fL (81-99); Platelet Count 184 K/mm3 (150-450); RBC Distribution Width CV 14.6 % (11.6-14.6); RBC Distribution Width SD 46.5 fl (35.1-43.9); White Blood Count 7.7 K/mm3 (4.4-11.0)
[2020-08-21 07:22] VITALS: O2SAT 93
[2020-08-21] MEDS: Dextrose 5%/0.9% NaCl 1,000 ML 100 ML IV ×2 (08:15→21:42)
--- NOTE | 2020-08-21 08:19 | PN_ITS ---
Patient Problems: Active and Suspected Problems (Last Reviewed 06/10/20 @ 21:[address] Judson Massey MD) Diabetic infection of left foot (Acute) Abscess of left foot (Acute) Cellulitis of left lower limb (Acute) Chest pain (Acute) Subjective: Patient seen and examined resting comfortably. Patient denies any new pedal complaints. Patient denies any nausea, fever, chills, chest pain, shortness of breath, cough, streaking, purulence, vomiting. Patient relates continued improvement - Physical Exam Vitals/I&O's: Vital Signs Temp Pulse Resp BP Pulse Ox 98.5 F 65 16 153/72 H 93 08/21/20 02:57 08/21/20 02:57 08/21/20 02:57 08/21/20 02:57 08/21/20 07:22 Oxygen Delivery Method Room Air Weight: 75.892 kg Body Mass Index (BMI) 29.0 Finger Stick Blood Glucose 193 Intake and Output for Last 24 Hours 08/19/20 08/20/20 08/21/20 23:59 23:59 23:59 Intake Total 3019.0 / 3019.0 3751.00 / 3751.00 1112.00 / 1112.00 Output Total 1500 / 1700 4000 / 4000 900 / 900 Balance 1519.0 / 1319.0 -249.00 / -249.00 212.00 / 212.00 General: Alert, Oriented x3 HEENT: Atraumatic Extremities: No clubbing, No cyanosis, Capillary Refill Less than 3 Seconds, No Calf Tenderness, Diminished Peripheral Pulses, Edema - Improved, Tenderness - To plantar left foot improved Skin: Ulcer/ Wound - Plantar left foot ulceration. Less erythema and edema noted. Less pain on palpation. Overall improvement. Granular base. No purulent drainage expressed., Incision - Incision left plantar foot with distal and proximal aspect packed open. Packing replaced Musculoskeletal: Tenderness - Left plantar foot improved, - - Left foot Charcot deformity Neurological: - - Decrease in epicritic sensation consistent with neuropathy Psych/Mental Status: Normal Affect, Appropriate Microbiology Past 72 Hours 08/19/20 16:59 Wound - Left Foot Gram Stain - Final 08/19/20 16:59 Wound - Left Foot Wound Culture - Preliminary No growth-Final to follow 08/17/20 16:51 Blood Culture (Wb) - Other Blood Culture - Preliminary No growth in 48 hours. 08/17/20 16:50 Blood Culture (Wb) - Other Bacteria Detection (PCR) - Final Coag Negative Staph 08/17/20 16:50 Blood Culture (Wb) - Other Blood Culture - Preliminary Coag Negative Staph 08/19/20 08:50 Mucosa - Nose SARS-CoV-2 Antigen (Rapid) - Final Laboratory Results 08/20/20 11:10: POC Glucose 185 H 08/20/20 16:15: POC Glucose 137 H 08/20/20 21:42: POC Glucose 243 H 08/21/20 06:20: POC Glucose 78 08/21/20 06:27: WBC 7.7, RBC 3.50 L, Hgb 10.4 L, Hct 30.3 L, MCV 86.6, MCH 29.7, MCHC 34.3, RDW Std Deviation 46.5 H, RDW Coeff of Marco 14.6, Plt Count 184, MPV 9.0 Current Medications Acetaminophen (Acetaminophen 325 Mg Tablet) 650 mg PO Q6H PRN PRN PRN Reason: Pain Score 1-10 /Temp>100.7 Last Admin: 08/20/20 08:51 Dose: 650 mg Documented by: Allopurinol (Allopurinol 100 Mg Tablet) 100 mg PO DAILY [facility] Last Admin: 08/20/20 08:43 Dose: 100 mg Documented by: Amlodipine Besylate (Amlodipine 5 Mg Tablet) 5 mg PO DAILY [facility] Last Admin: 08/20/20 08:44 Dose: 5 mg Documented by: Aspirin (Aspirin E.C. 81 Mg Tablet) [facility] Last Admin: 08/20/20 08:43 Dose: 81 mg Documented by: Bisacodyl (Bisacodyl 5 Mg Tablet) 10 mg PO DAILY PRN PRN PRN Reason: Constipation Calamine/Phenol (Menthol/Lanolin/Calamine/Znox 113 Gm Tube) 1 applic TOPICAL TID [facility]; Protocol Last Admin: 08/21/20 06:03 Dose: Not Given Documented by: Carvedilol (Carvedilol 25 Mg Tablet) 25 mg PO BID [facility] Last Admin: 08/20/20 20:28 Dose: 25 mg Documented by: Dextrose (Dextrose 50%-Water 25 Gm/50 Ml Disp.Syrin) 0 gm IV X1 PRN; Protocol PRN Reason: Hypoglycemia Enoxaparin Sodium (Enoxaparin 40 Mg/0.4 Ml Syringe) 40 mg SC DAILY [facility] Last Admin: 08/17/20 23:03 Dose: Not Given Documented by: Glucagon (Glucagon 1 Mg/Ml Syringe) 1 mg IM .X1 PRN PRN Reason: Hypoglycemia Dextrose/Sodium Chloride (Dextrose 5%/0.9% Nacl) 1,000 mls @ 100 mls/hr IV .Q10H [facility] Last Admin: 08/21/20 08:15 Dose: 100 mls/hr Documented by: Ampicillin Sodium/Sulbactam (Sodium 3 gm/ Sodium Chloride) 112 mls @ 150 mls/hr IV Q8 [facility] Last Infusion: 08/21/20 06:53 Dose: Infused Documented by: Vancomycin IV Pharmacy to Dose (1 each/ Sodium Chloride) 500 mls @ 250 mls/hr IV X1 PRN; Protocol PRN Reason: Rx to Dose Vancomycin HCl 1,250 mg/ (Sodium Chloride) 275 mls @ 167 mls/hr IV Q24H [facility] Last Infusion: 08/20/20 20:27 Dose: Infused Documented by: Insulin Glargine (Insulin Glargine 100 Units/Ml Pen) 30 units SC BID [facility] Last Admin: 08/20/20 21:53 Dose: 30 units Documented by: Insulin Human Lispro (Insulin Lispro 100 Unit/Ml Insuln.Pen) 10 unit SC TIDCM [facility] Last Admin: 08/20/20 17:17 Dose: 10 u Documented by: Insulin Human Lispro (Insulin Lispro 100 Unit/Ml Insuln.Pen) 0 unit SC ACHS [facility]; Protocol Last Admin: 08/21/20 06:20 Dose: Not Given Documented by: Isosorbide Mononitrate (Isosorbide Mononitrate 60 Mg Tablet) 60 mg PO DAILY [facility] Last Admin: 08/20/20 08:43 Dose: 60 mg Documented by: Isosorbide Mononitrate (Isosorbide Mononitrate 60 Mg Tablet) 120 mg PO QPM [facility] Last Admin: 08/20/20 20:27 Dose: 120 mg Documented by: Levothyroxine Sodium (Levothyroxine 75 Mcg Tablet) 75 mcg PO QHS [facility] Last Admin: 08/20/20 20:30 Dose: 75 mcg Documented by: Lidocaine (Lidocaine 5% Patch) 2 patch TOPICAL DAILY [facility]; Protocol Last Admin: 08/20/20 10:56 Dose: 2 patch Documented by: Lisinopril (Lisinopril 10 Mg Tablet) 10 mg PO DAILY [facility] Last Admin: 08/20/20 08:44 Dose: 10 mg Documented by: Melatonin (Melatonin 10 Mg Tablet) 10 mg PO QHS [facility] Last Admin: 08/20/20 20:29 Dose: 10 mg Documented by: Metoclopramide HCl (Metoclopramide 10 Mg Tablet) 10 mg PO Q8H PRN PRN Reason: NAUSEA Last Admin: 08/18/20 18:49 Dose: 10 mg Documented by: Morphine Sulfate (Morphine 2 Mg/Ml Syringe) 2 - 4 mg IV Q3H PRN PRN PRN Reason: Pain Score 6-10 Last Admin: 08/20/20 21:49 Dose: 2 mg Documented by: Morphine Sulfate (Morphine (Oral Solution) 10mg/0.5ml Syringe) 6 mg PO Q6H PRN PRN PRN Reason: PAIN 1-10 OR FEVER Last Admin: 08/20/20 23:33 Dose: 6 mg Documented by: Nitroglycerin (Nitroglycerin (Inpatient Use) 0.4 Mg Tab.Subl) 0.4 mg SL Q5M PRN PRN Reason: CARDIAC/CHEST PAIN Nutritional Formula (Nutritional Supplement (Blue) Packet) 1 packet PO BIDCM [facility] Last Admin: 08/20/20 17:17 Dose: 1 packet Documented by: Pancrelipase (Creon 24,[address] Capsule) 1 capsule PO BIDCM [facility] Last Admin: 08/20/20 17:17 Dose: 1 capsule Documented by: Pantoprazole Sodium (Pantoprazole Sodium 20 Mg Tablet) 20 mg PO DAILY [facility] Last Admin: 08/20/20 08:45 Dose: 20 mg Documented by: Polyethylene Glycol (Polyethylene Glycol 3350 17 Gm Packet) 17 gm PO DAILY [facility] Last Admin: 08/20/20 08:43 Dose: 17 gm Documented by: Pravastatin Sodium (Pravastatin 40 Mg Tablet) 40 mg PO QHS [facility] Last Admin: 08/20/20 20:28 Dose: 40 mg Documented by: Senna/Docusate Sodium (Senna/Docusate Sodium 1 Tablet) 2 tablet PO BID PRN PRN PRN Reason: Constipation Sodium Chloride (0.9% Saline Lock 10 Ml Syringe) 10 - 40 ml IV UD PRN PRN Reason: SALINE FLUSH Last Admin: 08/21/20 06:07 Dose: 10 ml Documented by: Tizanidine HCl (Tizanidine Hcl 2 Mg Tablet) 4 mg PO Q8H PRN PRN Reason: BACK PAIN Last Admin: 08/21/20 03:04 Dose: 4 mg Documented by: Trazodone HCl (Trazodone 100 Mg Tablet) 100 mg PO QHS PRN PRN Reason: SLEEP Last Admin: 08/20/20 21:48 Dose: 100 mg Documented by: Venlafaxine HCl (Venlafaxine Hcl 100 Mg Tablet) 100 mg PO BID [facility] Last Admin: 08/20/20 22:01 Dose: 100 mg Documented by: Medical Necessity - Tobacco Use Smoking Status: Never smoker Assessment/Plan All Active Problems (Last Reviewed 06/10/20 @ 21:[address] Judson Massey MD) Diabetic infection of left foot (Acute) Abscess of left foot (Acute) Cellulitis of left lower limb (Acute) Ulcer of right foot with necrosis of bone (Resolved) Chest pain (Acute) Decubitus ulcer of sacral region, stage 2 (Resolved) Left foot cellulitis Left foot ulcer abscess left foot s/p debridement in OR 08/19/20 Charcot foot deformity left foot Diabetes with neuropathy Patient seen and examined bedside. Wound to plantar left foot has improved after surgery. No further purulent drainage noted. Less pain to palpation. Overall improvement noted X-rays were obtained and reviewed showing no acute fracture dislocation. MRI obtained and showed Cellulitis of the plantar aspect of the foot but no abscess or osteomyelitis. 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 Continue wound care daily dressing changes with 1/4 iodoform packing and silver covered by DSD Nonweightbearing left lower extremity White blood cell 7.7, ESR 37, CRP 18.4, cultures positive for Streptococcus agalactiae, Streptococcus caprae, gram-positive cocci possible Enterococcus from [facility] blood cultures showing coag neg staph bacterial growth. Follow results. Likely contaminant Please contact if any questions or concerns. Ok to DC from podiatry standpoint once ID gives antibiotic recommendations. Continue daily dressing changes. Follow up at [facility] with myself or Dr Magana who she is established with previously 1 week after DC Annia Zayas DPM [facility] [place] [phone]
[2020-08-21] MEDS: Creon 24,000 unit DR Capsule 1 CAP PO ×2 (08:21→17:08)
[2020-08-21] MEDS: Aspirin E.C. 81 MG Tablet PO (08:21)
[2020-08-21 09:28] VITALS: BP 158/42; PULSE 68; RESP 18; TEMP 36.7; O2SAT 98
[2020-08-21] MEDS: Carvedilol 25 MG Tablet PO ×2 (10:47→20:58)
[2020-08-21] MEDS: amLODIPine 5 MG Tablet PO (10:48)
[2020-08-21] MEDS: Lidocaine 5% Patch 2 PATCH TOPICAL (10:48)
[2020-08-21] MEDS: Allopurinol 100 MG Tablet PO (10:48)
[2020-08-21] MEDS: Lisinopril 10 MG Tablet PO (10:48)
[2020-08-21] MEDS: Pantoprazole Sodium 20 MG Tablet PO (10:48)
[2020-08-21] MEDS: Isosorbide Mononitrate 60 MG Tablet PO (10:48)
--- NOTE | 2020-08-21 11:49 | PN_ITS ---
Patient Problems: Active and Suspected Problems (Last Reviewed 06/10/20 @ 21:[address] Judson Massey MD) Diabetic infection of left foot (Acute) Abscess of left foot (Acute) Cellulitis of left lower limb (Acute) Chest pain (Acute) Subjective: Patient seen and examined. Complains of back pain however feels improved sitting in chair. Otherwise denies symptoms or complaints. - Physical Exam Vitals/I&O's: Vital Signs Temp Pulse Resp BP Pulse Ox 98.0 F 68 18 158/42 H 98 08/21/20 09:28 08/21/20 09:28 08/21/20 09:28 08/21/20 09:28 08/21/20 09:28 Oxygen Delivery Method Room Air Weight: 167 lb 5.011 oz Body Mass Index (BMI) 29.0 Finger Stick Blood Glucose 193 Intake and Output for Last 24 Hours 08/19/20 08/20/20 08/21/20 23:59 23:59 23:59 Intake Total 3019.0 / 3019.0 3751.00 / 3751.00 1112.00 / 1112.00 Output Total 1500 / 1700 4000 / 4000 900 / 900 Balance 1519.0 / 1319.0 -249.00 / -249.00 212.00 / 212.00 General: Alert, Oriented x3, Cooperative HEENT: Atraumatic, PERRLA, EOMI, Normocephalic Neck: Supple, No JVD, Negative Carotid Bruits Lungs: Clear to auscultation, Normal air movement Cardiovascular: Regular rate, No murmurs Abdomen: Bowel Sounds Present, Soft, Non Tender, Non-Distended Extremities: No clubbing, No cyanosis, No edema, Capillary Refill Less than 3 Seconds Skin: - - Left foot dressing intact Musculoskeletal: No Tenderness to Palpation of Joints or Extremities Neurological: Cranial nerves II-XII grossly intact, Neuro grossly intact Psych/Mental Status: Normal Affect, Appropriate Microbiology Past 72 Hours 08/19/20 16:59 Wound - Left Foot Gram Stain - Final 08/19/20 16:59 Wound - Left Foot Wound Culture - Preliminary No growth-Final to follow 08/17/20 16:51 Blood Culture (Wb) - Other Blood Culture - Preliminary No growth in 48 hours. 08/17/20 16:50 Blood Culture (Wb) - Other Bacteria Detection (PCR) - Final Coag Negative Staph 08/17/20 16:50 Blood Culture (Wb) - Other Blood Culture - Preliminary Coag Negative Staph 08/19/20 08:50 Mucosa - Nose SARS-CoV-2 Antigen (Rapid) - Final Laboratory Results 08/20/20 11:10: POC Glucose 185 H 08/20/20 16:15: POC Glucose 137 H 08/20/20 21:42: POC Glucose 243 H 08/21/20 06:20: POC Glucose 78 08/21/20 06:27: WBC 7.7, RBC 3.50 L, Hgb 10.4 L, Hct 30.3 L, MCV 86.6, MCH 29.7, MCHC 34.3, RDW Std Deviation 46.5 H, RDW Coeff of Marco 14.6, Plt Count 184, MPV 9.0 Current Medications Acetaminophen (Acetaminophen 325 Mg Tablet) 650 mg PO Q6H PRN PRN PRN Reason: Pain Score 1-10 /Temp>100.7 Last Admin: 08/20/20 08:51 Dose: 650 mg Documented by: Allopurinol (Allopurinol 100 Mg Tablet) 100 mg PO DAILY [facility] Last Admin: 08/21/20 10:48 Dose: 100 mg Documented by: Amlodipine Besylate (Amlodipine 5 Mg Tablet) 5 mg PO DAILY [facility] Last Admin: 08/21/20 10:48 Dose: 5 mg Documented by: Aspirin (Aspirin E.C. 81 Mg Tablet) 81 mg PO DAILYCM [facility] Last Admin: 08/21/20 08:21 Dose: 81 mg Documented by: Bisacodyl (Bisacodyl 5 Mg Tablet) 10 mg PO DAILY PRN PRN PRN Reason: Constipation Calamine/Phenol (Menthol/Lanolin/Calamine/Znox 113 Gm Tube) 1 applic TOPICAL TID [facility]; Protocol Last Admin: 08/21/20 06:03 Dose: Not Given Documented by: Carvedilol (Carvedilol 25 Mg Tablet) 25 mg PO BID [facility] Last Admin: 08/21/20 10:47 Dose: 25 mg Documented by: Dextrose (Dextrose 50%-Water 25 Gm/50 Ml Disp.Syrin) 0 gm IV X1 PRN; Protocol PRN Reason: Hypoglycemia Enoxaparin Sodium (Enoxaparin 40 Mg/0.4 Ml Syringe) 40 mg SC DAILY [facility] Last Admin: 08/17/20 23:03 Dose: Not Given Documented by: Glucagon (Glucagon 1 Mg/Ml Syringe) 1 mg IM .X1 PRN PRN Reason: Hypoglycemia Dextrose/Sodium Chloride (Dextrose 5%/0.9% Nacl) 1,000 mls @ 100 mls/hr IV .Q10H [facility] Last Admin: 08/21/20 08:15 Dose: 100 mls/hr Documented by: Ampicillin Sodium/Sulbactam (Sodium 3 gm/ Sodium Chloride) 112 mls @ 150 mls/hr IV Q8 [facility] Last Infusion: 08/21/20 06:53 Dose: Infused Documented by: Vancomycin IV Pharmacy to Dose (1 each/ Sodium Chloride) 500 mls @ 250 mls/hr IV X1 PRN; Protocol PRN Reason: Rx to Dose Vancomycin HCl 1,250 mg/ (Sodium Chloride) 275 mls @ 167 mls/hr IV Q24H [facility] Last Infusion: 08/20/20 20:27 Dose: Infused Documented by: Insulin Glargine (Insulin Glargine 100 Units/Ml Pen) 30 units SC BID [facility] Last Admin: 08/21/20 10:48 Dose: 30 units Documented by: Insulin Human Lispro (Insulin Lispro 100 Unit/Ml Insuln.Pen) 10 unit SC TIDCM [facility] Last Admin: 08/21/20 08:20 Dose: Not Given Documented by: Insulin Human Lispro (Insulin Lispro 100 Unit/Ml Insuln.Pen) 0 unit SC ACHS [facility]; Protocol Last Admin: 08/21/20 06:20 Dose: Not Given Documented by: Isosorbide Mononitrate (Isosorbide Mononitrate 60 Mg Tablet) 60 mg PO DAILY [facility] Last Admin: 08/21/20 10:48 Dose: 60 mg Documented by: Isosorbide Mononitrate (Isosorbide Mononitrate 60 Mg Tablet) 120 mg PO QPM [facility] Last Admin: 08/20/20 20:27 Dose: 120 mg Documented by: Levothyroxine Sodium (Levothyroxine 75 Mcg Tablet) 75 mcg PO QHS [facility] Last Admin: 08/20/20 20:30 Dose: 75 mcg Documented by: Lidocaine (Lidocaine 5% Patch) 2 patch TOPICAL DAILY [facility]; Protocol Last Admin: 08/21/20 10:48 Dose: 2 patch Documented by: Lisinopril (Lisinopril 10 Mg Tablet) 10 mg PO DAILY [facility] Last Admin: 08/21/20 10:48 Dose: 10 mg Documented by: Melatonin (Melatonin 10 Mg Tablet) 10 mg PO QHS [facility] Last Admin: 08/20/20 20:29 Dose: 10 mg Documented by: Metoclopramide HCl (Metoclopramide 10 Mg Tablet) 10 mg PO Q8H PRN PRN Reason: NAUSEA Last Admin: 08/18/20 18:49 Dose: 10 mg Documented by: Morphine Sulfate (Morphine 2 Mg/Ml Syringe) 2 - 4 mg IV Q3H PRN PRN PRN Reason: Pain Score 6-10 Last Admin: 08/20/20 21:49 Dose: 2 mg Documented by: Morphine Sulfate (Morphine (Oral Solution) 10mg/0.5ml Syringe) 6 mg PO Q6H PRN PRN PRN Reason: PAIN 1-10 OR FEVER Last Admin: 08/20/20 23:33 Dose: 6 mg Documented by: Nitroglycerin (Nitroglycerin (Inpatient Use) 0.4 Mg Tab.Subl) 0.4 mg SL Q5M PRN PRN Reason: CARDIAC/CHEST PAIN Nutritional Formula (Nutritional Supplement (Blue) Packet) 1 packet PO BIDCM [facility] Last Admin: 08/21/20 08:21 Dose: 1 packet Documented by: Pancrelipase (Creon 24,[address] Capsule) 1 capsule PO BIDCM [facility] Last Admin: 08/21/20 08:21 Dose: 1 capsule Documented by: Pantoprazole Sodium (Pantoprazole Sodium 20 Mg Tablet) 20 mg PO DAILY [facility] Last Admin: 08/21/20 10:48 Dose: 20 mg Documented by: Polyethylene Glycol (Polyethylene Glycol 3350 17 Gm Packet) 17 gm PO DAILY [facility] Last Admin: 08/21/20 10:46 Dose: Not Given Documented by: Pravastatin Sodium (Pravastatin 40 Mg Tablet) 40 mg PO QHS [facility] Last Admin: 08/20/20 20:28 Dose: 40 mg Documented by: Senna/Docusate Sodium (Senna/Docusate Sodium 1 Tablet) 2 tablet PO BID PRN PRN PRN Reason: Constipation Sodium Chloride (0.9% Saline Lock 10 Ml Syringe) 10 - 40 ml IV UD PRN PRN Reason: SALINE FLUSH Last Admin: 08/21/20 06:07 Dose: 10 ml Documented by: Tizanidine HCl (Tizanidine Hcl 2 Mg Tablet) 4 mg PO TID [facility] Trazodone HCl (Trazodone 100 Mg Tablet) 100 mg PO QHS PRN PRN Reason: SLEEP Last Admin: 08/20/20 21:48 Dose: 100 mg Documented by: Venlafaxine HCl (Venlafaxine Hcl 100 Mg Tablet) 100 mg PO BID [facility] Last Admin: 08/21/20 10:47 Dose: 100 mg Documented by: Medical Necessity - Tobacco Use Smoking Status: Never smoker Assessment/Plan All Active Problems (Last Reviewed 06/10/20 @ 21:[address] Judson Massey MD) Diabetic infection of left foot (Acute) Abscess of left foot (Acute) Cellulitis of left lower limb (Acute) Ulcer of right foot with necrosis of bone (Resolved) Chest pain (Acute) Decubitus ulcer of sacral region, stage 2 (Resolved) 1. Acute, recurrent infected left foot ulcer, Charcot deformity-podiatry and ID following. On IV Unasyn and IV vancomycin. Previous incision and drainage left foot with widespread debridement 04/15/2020. Cultures at that time grew multiple organisms including strep, Pseudomonas and staph. Wound RN consult. MRI without osteo. PT/OT. Patient underwent debridement of left foot ulcer and left foot abscess 08/19/2020. Await final repeat cultures, preliminary growing coag negative staph. ID consulted. 1. CAD with history of CABG and stents- Prior heart cath November 2018 which demonstrated mid RCA lesion 65% stenosis, FFR was done with no PCI. Stress echo June 2019 negative for ischemia. Continue medical management including aspirin, carvedilol, statin, isosorbide. Resume Plavix when okay per podiatry. 3. Chronic kidney disease stage IIIa-at baseline, trend BMP. 4. Type 2 diabetes mellitus- Continue home insulin regimen. Accu-Cheks with sliding scale insulin. Hemoglobin A1c January 2020 7.8%. 5. Hypertension-stable, continue Norvasc, Coreg, lisinopril, isosorbide. 6. GERD-continue PPI. 7. Hypothyroidism-continue Synthroid. 8. PVD-continue aspirin, Plavix, statin. 9. Chronic microcytic anemia/iron deficiency anemia-stable. 10. Anxiety-uses CBD oil as needed. 11. Chronic severe malnutrition-dietitian consult. DVT prophylaxis-Lovenox subcu. This patient was seen by CLIFFORD Grayson under the supervision of Dr. Cheek.
[2020-08-21] MEDS: Insulin Lispro 100 UNIT/ML INSULN.PEN SC (12:04)
[2020-08-21] MEDS: Insulin Lispro 100 UNIT/ML INSULN.PEN 10 UNIT SC ×2 (12:05→17:07)
[2020-08-21 12:10] LABS: Bedside Glucose 255 mg/dL (70-110)
[2020-08-21 15:19] VITALS: BP 128/56; PULSE 62; RESP 18; TEMP 36.7; O2SAT 99
[2020-08-21] MEDS: Morphine 2 MG/ML Syringe IV ×2 (15:25→20:55)
[2020-08-21 17:06] LABS: Bedside Glucose 120 mg/dL (70-110)
[2020-08-21 18:57] LABS: Vancomycin, Trough Level 15.7 ug/mL (5.0-15.0)
--- NOTE | 2020-08-21 19:33 | PCM.DC.POD ---
Discharge Activity: Use Walker Weight Bearing Status: No weight bearing - left, has UPPER [place] boot if required limited ambulation Keep extremity elevated above heart level: Left Leg Call your doctor if your incision/area has: Increased Pain/ Swelling, Increased Redness, Foul Smelling Discharge Call your doctor if you observe: Fever of 101 or Higher, Numbness or Tingling, Shortness of breath, Fainting spells, Chest pain, Uncontrolled pain Cleanse incision/area with: Soap & Water Additional Dressing/Incision Instructions:: change dressing daily with 1/4 iodoform packing to proximal and distal incision line to tracking area, cover with silver alginate, 4x4, abd, kerlix, shree wrap Allergies/Adverse Reactions: Allergies doxycycline Allergy (Severe, Verified 08/17/20 15:19) all over body hives and itching atorvastatin calcium [From Lipitor] Allergy (Verified 08/17/20 15:19) Unknown bupropion HCl [From Wellbutrin] Allergy (Verified 08/17/20 15:19) Unknown mannitol [From Reclast] Allergy (Verified 08/17/20 15:19) joint pain, unable to breathe, unable to walk propoxyphene napsylate [From Darvocet-N 100] Allergy (Verified 08/17/20 15:19) Unknown Quinolones Allergy (Verified 08/17/20 15:19) Unknown Tetanus Vaccines and Toxoid [Tetanus Vaccines & Toxoid] Allergy (Verified 08/17/20 15:19) Chest tightness tizanidine Allergy (Verified 08/17/20 15:19) Unknown zoledronic acid [From Reclast] Allergy (Verified 08/17/20 15:19) joint pain,unable to breathe, unaable to walk JOINT PAIN,UNABLE TO BREATHE,UNABLE TO WALK pravastatin Adverse Reaction (Severe, Verified 08/17/20 15:19) Myalgias gemfibrozil Adverse Reaction (Intermediate, Verified 08/17/20 15:19) Unknown NSAIDS (Non-Steroidal Anti-Inflamma Adverse Reaction (Verified 08/17/20 15:19) Other Medications to take at Discharge Pravastatin Sodium 40 mg PO QHS 03/10/17 amlodipine 5 mg tablet 5 mg PO DAILY tab 05/05/18 Esomeprazole Magnesium 20 mg PO DAILY 09/21/19 clopidogrel 75 mg tablet 75 mg PO DAILY #90 tab 11/23/19 Allopurinol 100 mg PO DAILY 03/17/20 Calcium Citrate 200 mg PO BID #0 03/17/20 insulin detemir U-100 100 unit/mL (3 mL) subcutaneous pen 34 unit SC BID ml 03/24/20 aspirin 81 mg tablet,delayed release 81 mg PO DAILY 04/05/20 cbd 1 dose PO 4X/DAY PRN 04/05/20 [id number] 24,000-76,000-120,000 unit capsule,delayed rel 1 cap PO BID cap 04/05/20 Menthol/Lanolin/Calamine/Znox [Calmoseptine Ointment] 1 applic TOPICAL TID 04/19/20 Acetaminophen [Tylenol] 1,000 mg PO Q6H PRN PRN tab 04/25/20 Nitroglycerin (INPATIENT USE) [Nitrostat] 0.4 mg SUBLINGUAL Q5M PRN tab.subl 04/25/20 Carvedilol 25 mg PO BID 08/17/20 Insulin Aspart [Novolog Flexpen] 12 units SQ TIDCM 08/17/20 Isosorbide Mononitrate [Isosorbide Mononitrate ER] 60 mg PO DAILY 08/17/20 Isosorbide Mononitrate [Isosorbide Mononitrate ER] 120 mg PO DAILY 08/17/20 Levothyroxine Sodium 75 mcg PO QHS 08/17/20 Linaclotide [Linzess] 72 mcg PO DAILY 08/17/20 Lisinopril 10 mg PO DAILY 08/17/20 Melatonin 6 mg PO QHS 08/17/20 Metoclopramide HCl 10 mg PO Q8H PRN 08/17/20 Morphine Sulfate 3 ml PO Q6H PRN PRN 08/17/20 Multivitamin/Iron/Folic Acid [[facility] Spectravite Ultra Women Tb] 0.5 tablet PO BID 08/17/20 Nutritional Supplement [Blue - ORANGE FLAVOR] 1 packet PO BIDCM 08/17/20 Tizanidine HCl 4 mg PO Q8H PRN 08/17/20 Trazodone HCl 100 mg PO QHS PRN 08/17/20 Tryptophan [l-Tryptophan] 500 mg PO DINNER 08/17/20 Venlafaxine HCl 100 mg PO BID 08/17/20 Wheat Dextrin [Benefiber] 15 ml PO DAILY 08/17/20 Primary Care Physician: Con Johnson MD [Primary Care Provider] - 3-5 Days if not improving Test Results: Test results from this visit will be discussed in further detail at your follow-up appointment, if applicable. Please Follow Up With: Ivanna Magana DPM - at wound care center When: Monday August 24, 2020
[2020-08-21] MEDS: Isosorbide Mononitrate 60 MG Tablet 120 MG PO (20:57)
[2020-08-21 21:20] VITALS: BP 182/65; PULSE 66; RESP 18; TEMP 37.4; O2SAT 95
[2020-08-21 21:30] LABS: Bedside Glucose 71 mg/dL (70-110)
[2020-08-21] MEDS: Levothyroxine 75 MCG Tablet PO (21:45)
[2020-08-21] MEDS: Pravastatin 40 MG Tablet PO (21:45)
[2020-08-21] MEDS: MELATONIN 10 MG TABLET PO (21:45)
[2020-08-21] MEDS: traZODone 100 MG Tablet PO (23:11)
[2020-08-21 23:12] VITALS: BP 136/51
--- NOTE | 2020-08-22 01:34 | PCM.RX.CS ---
Consult Pharmacy has been consulted to manage selected antiobiotic: Vancomycin Type of Consult: Follow-up Labs: Sodium 144 mmol/L (136-145) 08/20/20 05:30 Potassium 3.9 mmol/L (3.5-5.1) 08/20/20 05:30 Chloride 118 mmol/L (98-107) H 08/20/20 05:30 Carbon Dioxide 19.0 mmol/L (21.0-32.0) L 08/20/20 05:30 Anion Gap 7 (5-15) 08/20/20 05:30 BUN 16 mg/dL (7-18) 08/20/20 05:30 Creatinine 0.98 mg/dL (0.55-1.02) 08/20/20 05:30 Est GFR (MDRD) Af Amer 72 mL/min (>60) 08/20/20 05:30 Est GFR (MDRD) Non-Af 59 mL/min (>60) L 08/20/20 05:30 BUN/Creatinine Ratio 16.3 RATIO (10-20) 08/20/20 05:30 Glucose 171 mg/dL (74-106) H 08/20/20 05:30 Vancomycin Trough 15.7 ug/mL (5.0-15.0) H 08/21/20 18:27 Microbiology: Microbiology 08/19/20 16:59 Wound - Left Foot Gram Stain - Final 08/19/20 16:59 Wound - Left Foot Wound Culture - Preliminary No growth-Final to follow 08/17/20 16:51 Blood Culture (Wb) - Other Blood Culture - Preliminary No growth in 48 hours. 08/17/20 16:50 Blood Culture (Wb) - Other Bacteria Detection (PCR) - Final Coag Negative Staph 08/17/20 16:50 Blood Culture (Wb) - Other Blood Culture - Preliminary Coag Negative Staph 08/19/20 08:50 Mucosa - Nose SARS-CoV-2 Antigen (Rapid) - Final Goal Trough: 15-20 mcg/mL Pharmacy Plan for Drug Dosing: Pharmacy Service will continue to monitor and adjust dosing as required. TROUGH 15.7 NO CHANGES Follow-Up Labs: Trough Vancomycin Labs to be done on [date and time ordered]: 08/25 @ 5051
[2020-08-22 03:05] VITALS: BP 161/69; PULSE 63; RESP 18; TEMP 36.8; O2SAT 96
[2020-08-22] MEDS: Morphine 2 MG/ML Syringe IV (03:14)
[2020-08-22] MEDS: tiZANidine HCl 2 MG Tablet 4 MG PO ×2 (06:18→15:16)
[2020-08-22 06:33] LABS: Hematocrit 32.7 % (37-47); Hemoglobin 10.9 g/dL (12.0-15.0); Mean Corp Hgb Conc 33.3 g/dL (32-36); Mean Corpuscular Hgb 29.1 pg (27.0-32.0); Mean Corpuscular Volume 87.2 fL (81-99); Mean Platelet Vol. 9.4 fl (6.2-12.0); Platelet Count 203 K/mm3 (150-450); RBC Distribution Width CV 14.6 % (11.6-14.6); RBC Distribution Width SD 46.4 fl (35.1-43.9); Red Blood Count 3.75 M/mm3 (4.2-5.4); White Blood Count 7.1 K/mm3 (4.4-11.0)
[2020-08-22 07:10] LABS: Anion Gap 6 (5-15); BUN 23 mg/dL (7-18); BUN/Creat Ratio 25.6 RATIO (10-20); Calcium,Total 8.5 mg/dL (8.5-10.1); Chloride 116 mmol/L (98-107); EST Glomerular Filtration Rate 65 mL/min (>60); Est Glom Filt Rate - Afr Amer 79 mL/min (>60); Estimated Creatinine Clearance 48.07 ml/min; Glucose 97 mg/dL (74-106); Potassium 3.7 mmol/L (3.5-5.1); Sodium Level 144 mmol/L (136-145)
[2020-08-22 07:40] LABS: Bedside Glucose 105 mg/dL (70-110)
[2020-08-22 07:41] VITALS: O2SAT 95
--- NOTE | 2020-08-22 08:26 | CASEMGMT ---
LW/POA forms scanned into summary tab of [facility], [facility]s [facility] POA is daughter in law Madison Buitrago. SOFIYA Peters
[2020-08-22 09:00] VITALS: BP 164/56; PULSE 54; RESP 18; TEMP 36.4; O2SAT 95
[2020-08-22] MEDS: Dextrose 5%/0.9% NaCl 1,000 ML 100 ML IV (09:45)
[2020-08-22] MEDS: Lidocaine 5% Patch 2 PATCH TOPICAL (09:46)
[2020-08-22] MEDS: Insulin Lispro 100 UNIT/ML INSULN.PEN 10 UNIT SC ×2 (09:46→12:10)
[2020-08-22] MEDS: Pantoprazole Sodium 20 MG Tablet PO (09:47)
--- NOTE | 2020-08-22 09:49 | PCM.PROGNOTE ---
Patient Problems: Active and Suspected Problems (Last Reviewed 06/10/20 @ 21:[address] Judson Massey MD) Diabetic infection of left foot (Acute) Abscess of left foot (Acute) Cellulitis of left lower limb (Acute) Chest pain (Acute) Subjective: Patient was seen this morning. She has no fever, chills, nausea or vomiting. She is sitting in chair with feet elevated. WBC normal, patient afebrile. - Physical Exam Vitals/I&O's: Vital Signs Temp Pulse Resp BP Pulse Ox 98.2 F 63 18 161/69 H 95 08/22/20 03:05 08/22/20 03:05 08/22/20 03:05 08/22/20 03:05 08/22/20 07:41 Oxygen Delivery Method Room Air Weight: 83.8 kg Body Mass Index (BMI) 29.0 Finger Stick Blood Glucose 193 Intake and Output for Last 24 Hours 08/20/20 08/21/20 08/22/20 23:59 23:59 23:59 Intake Total 3751.00 / 3751.00 3641.00 / 4141.00 900 / 900 Output Total 4000 / 4000 2550 / 3150 1800 / 1800 Balance -249.00 / -249.00 1091.00 / 991.00 -900 / -900 General: Alert, Oriented x3, Cooperative, No apparent distress Extremities: Capillary Refill Less than 3 Seconds, No Calf Tenderness, - - s/p I+D left foot, with 2 open wounds to plantar aspect down to subcutantous/fascia layer, no probe to bone, cellulitis much improved, there is some serosanguineous drainage noted, no purulence, no abscess, no crepitus, no fluctuance, no maloder, no necrosis present - tissues are viable. Musculoskeletal: Tenderness - there is some tenderness to the arch of the plantar left foot. There is chronic charcot neuroarthropathy to the left foot. Psych/Mental Status: Normal Affect, Appropriate, Alert and oriented to time, place, person, mood and affect Microbiology Past 72 Hours 08/19/20 16:59 Wound - Left Foot Gram Stain - Final 08/19/20 16:59 Wound - Left Foot Wound Culture - Preliminary No growth-Final to follow 08/17/20 16:51 Blood Culture (Wb) - Other Blood Culture - Preliminary No growth in 48 hours. 08/17/20 16:50 Blood Culture (Wb) - Other Bacteria Detection (PCR) - Final Coag Negative Staph 08/17/20 16:50 Blood Culture (Wb) - Other Blood Culture - Preliminary Coag Negative Staph 08/19/20 08:50 Mucosa - Nose SARS-CoV-2 Antigen (Rapid) - Final Laboratory Results 08/21/20 12:01: POC Glucose 255 H 08/21/20 16:32: POC Glucose 120 H 08/21/20 18:27: Vancomycin Trough 15.7 H 08/21/20 21:27: POC Glucose 71 08/22/20 05:50: WBC 7.1, RBC 3.75 L, Hgb 10.9 L, Hct 32.7 L, MCV 87.2, MCH 29.1, MCHC 33.3, RDW Std Deviation 46.4 H, RDW Coeff of Marco 14.6, Plt Count 203, MPV 9.4 08/22/20 05:50: Sodium 144, Potassium 3.7, Chloride 116 H, Carbon Dioxide 22.0, Anion Gap 6, BUN 23 H, Creatinine 0.90, Estim Creat Clear Calc 48.07, Est GFR (MDRD) Af Amer 79, Est GFR (MDRD) Non-Af 65, BUN/Creatinine Ratio 25.6 H, Glucose 97, Calcium 8.5 08/22/20 07:36: POC Glucose 105 Current Medications Acetaminophen (Acetaminophen 325 Mg Tablet) 650 mg PO Q6H PRN PRN PRN Reason: Pain Score 1-10 /Temp>100.7 Last Admin: 08/20/20 08:51 Dose: 650 mg Documented by: Allopurinol (Allopurinol 100 Mg Tablet) 100 mg PO DAILY [facility] Last Admin: 08/21/20 10:48 Dose: 100 mg Documented by: Amlodipine Besylate (Amlodipine 5 Mg Tablet) 5 mg PO DAILY [facility] Last Admin: 08/21/20 10:48 Dose: 5 mg Documented by: Aspirin (A[facility]in E.C. 81 Mg [facility]) [facility] Admin: 08/21/20 08:21 Dose: 81 mg Documented by: Bisacodyl (Bisacodyl 5 Mg Tablet) 10 mg PO DAILY PRN PRN PRN Reason: Constipation Calamine/Phenol (Menthol/Lanolin/Calamine/Znox 113 Gm Tube) 1 applic TOPICAL TID [facility]; Protocol Last Admin: 08/22/20 06:19 Dose: Not Given Documented by: Carvedilol (Carvedilol 25 Mg Tablet) 25 mg PO BID [facility] Last Admin: 08/21/20 20:58 Dose: 25 mg Documented by: Dextrose (Dextrose 50%-Water 25 Gm/50 Ml Disp.Syrin) 0 gm IV X1 PRN; Protocol PRN Reason: Hypoglycemia Enoxaparin Sodium (Enoxaparin 40 Mg/0.4 Ml Syringe) 40 mg SC DAILY [facility] Last Admin: 08/17/20 23:03 Dose: Not Given Documented by: Glucagon (Glucagon 1 Mg/Ml Syringe) 1 mg IM .X1 PRN PRN Reason: Hypoglycemia Dextrose/Sodium Chloride (Dextrose 5%/0.9% Nacl) 1,000 mls @ 100 mls/hr IV .Q10H [facility] Last Admin: 08/21/20 21:42 Dose: 100 mls/hr Documented by: Ampicillin Sodium/Sulbactam (Sodium 3 gm/ Sodium Chloride) 112 mls @ 150 mls/hr IV Q8 [facility] Last Admin: 08/22/20 06:18 Dose: 150 mls/hr Documented by: Vancomycin IV Pharmacy to Dose (1 each/ Sodium Chloride) 500 mls @ 250 mls/hr IV X1 PRN; Protocol PRN Reason: Rx to Dose Vancomycin HCl 1,250 mg/ (Sodium Chloride) 275 mls @ 167 mls/hr IV Q24H [facility] Last Infusion: 08/21/20 21:51 Dose: Infused Documented by: Insulin Glargine (Insulin Glargine 100 Units/Ml Pen) 30 units SC BID [facility] Last Admin: 08/21/20 21:43 Dose: Not Given Documented by: Insulin Human Lispro (Insulin Lispro 100 Unit/Ml Insuln.Pen) 10 unit SC TIDCM [facility] Last Admin: 08/21/20 17:07 Dose: 10 u Documented by: Insulin Human Lispro (Insulin Lispro 100 Unit/Ml Insuln.Pen) 0 unit SC ACHS [facility]; Protocol Last Admin: 08/22/20 07:41 Dose: Not Given Documented by: Isosorbide Mononitrate (Isosorbide Mononitrate 60 Mg Tablet) 60 mg PO DAILY [facility] Last Admin: 08/21/20 10:48 Dose: 60 mg Documented by: Isosorbide Mononitrate (Isosorbide Mononitrate 60 Mg Tablet) 120 mg PO QPM [facility] Last Admin: 08/21/20 20:57 Dose: 120 mg Documented by: Levothyroxine Sodium (Levothyroxine 75 Mcg Tablet) 75 mcg PO QHS [facility] Last Admin: 08/21/20 21:45 Dose: 75 mcg Documented by: Lidocaine (Lidocaine 5% Patch) 2 patch TOPICAL DAILY [facility]; Protocol Last Admin: 08/21/20 10:48 Dose: 2 patch Documented by: Lisinopril (Lisinopril 10 Mg Tablet) 10 mg PO DAILY [facility] Last Admin: 08/21/20 10:48 Dose: 10 mg Documented by: Melatonin (Melatonin 10 Mg Tablet) 10 mg PO QHS [facility] Last Admin: 08/21/20 21:45 Dose: 10 mg Documented by: Metoclopramide HCl (Metoclopramide 10 Mg Tablet) 10 mg PO Q8H PRN PRN Reason: NAUSEA Last Admin: 08/18/20 18:49 Dose: 10 mg Documented by: Morphine Sulfate (Morphine 2 Mg/Ml Syringe) 2 - 4 mg IV Q3H PRN PRN PRN Reason: Pain Score 6-10 Last Admin: 08/22/20 03:14 Dose: 4 mg Documented by: Morphine Sulfate (Morphine (Oral Solution) 10mg/0.5ml Syringe) 6 mg PO Q6H PRN PRN PRN Reason: PAIN 1-10 OR FEVER Last Admin: 08/20/20 23:33 Dose: 6 mg Documented by: Nitroglycerin (Nitroglycerin (Inpatient Use) 0.4 Mg Tab.Subl) 0.4 mg SL Q5M PRN PRN Reason: CARDIAC/CHEST PAIN Nutritional Formula (Nutritional Supplement (Blue) Packet) 1 packet PO BIDCM [facility] Last Admin: 08/21/20 17:07 Dose: 1 packet Documented by: Pancrelipase (Creon 24,[address] Capsule) 1 capsule PO BIDCM [facility] Last Admin: 08/21/20 17:08 Dose: 1 capsule Documented by: Pantoprazole Sodium (Pantoprazole Sodium 20 Mg Tablet) 20 mg PO DAILY [facility] Last Admin: 08/21/20 10:48 Dose: 20 mg Documented by: Polyethylene Glycol (Polyethylene Glycol 3350 17 Gm Packet) 17 gm PO DAILY [facility] Last Admin: 08/21/20 10:46 Dose: Not Given Documented by: Pravastatin Sodium (Pravastatin 40 Mg Tablet) 40 mg PO QHS [facility] Last Admin: 08/21/20 21:45 Dose: 40 mg Documented by: Senna/Docusate Sodium (Senna/Docusate Sodium 1 Tablet) 2 tablet PO BID PRN PRN PRN Reason: Constipation Sodium Chloride (0.9% Saline Lock 10 Ml Syringe) 10 - 40 ml IV UD PRN PRN Reason: SALINE FLUSH Last Admin: 08/21/20 15:24 Dose: 10 ml Documented by: Tizanidine HCl (Tizanidine Hcl 2 Mg Tablet) 4 mg PO TID [facility] Last Admin: 08/22/20 06:18 Dose: 4 mg Documented by: Trazodone HCl (Trazodone 100 Mg Tablet) 100 mg PO QHS PRN PRN Reason: SLEEP Last Admin: 08/21/20 23:11 Dose: 100 mg Documented by: Venlafaxine HCl (Venlafaxine Hcl 100 Mg Tablet) 100 mg PO BID [facility] Last Admin: 08/21/20 21:45 Dose: 100 mg Documented by: Medical Necessity - Tobacco Use Smoking Status: Never smoker Assessment/Plan All Active Problems (Last Reviewed 06/10/20 @ 21:[address] Judson Massey MD) Diabetic infection of left foot (Acute) Abscess of left foot (Acute) Cellulitis of left lower limb (Acute) Ulcer of right foot with necrosis of bone (Resolved) Chest pain (Acute) Decubitus ulcer of sacral region, stage 2 (Resolved) Left foot cellulitis Left foot ulcer Abscess left foot s/p debridement in OR 08/19/20 Charcot foot deformity left foot Diabetes with neuropathy Patient seen and examined bedside. Left foot has improved after surgery. Reviewed wound and blood culture results, patient on IV antibiotics w/ ID/Dr. Webb on consult. Continue wound care daily dressing changes with 1/4 iodoform packing and silver covered by DSD. Strict nonweightbearing left lower extremity. Ordered new LEAS for further assessment of lower extremity arterial flow. D/C planning: Discussed with patient and she would be agreeable to go to TCU - This is good option for her given foot infection needing daily packing/dressing changes and needs to be strict nonweightbearing to left foot which would be very difficult for her at home. Also patient may need continued course of IV antibiotics pending Dr. Webb recommendations. Podiatry will continue to follow.
[2020-08-22] MEDS: Polyethylene Glycol 3350 17 GM PACKET PO (09:50)
[2020-08-22] MEDS: Isosorbide Mononitrate 60 MG Tablet PO (09:51)
[2020-08-22] MEDS: Carvedilol 25 MG Tablet PO (09:52)
[2020-08-22] MEDS: Lisinopril 10 MG Tablet PO (09:52)
[2020-08-22] MEDS: amLODIPine 5 MG Tablet PO (09:52)
[2020-08-22] MEDS: Creon 24,000 unit DR Capsule 1 CAP PO ×2 (09:52→17:04)
[2020-08-22] MEDS: Allopurinol 100 MG Tablet PO (09:54)
[2020-08-22] MEDS: Aspirin E.C. 81 MG Tablet PO (09:54)
[2020-08-22 10:00] VITALS: RESP 18
--- NOTE | 2020-08-22 10:06 | NURSING ---
wound photo: left plantar foot
[2020-08-22 11:46] LABS: Bedside Glucose 344 mg/dL (70-110)
--- NOTE | 2020-08-22 12:34 | PN.ID_ITS ---
Patient Problems: Active and Suspected Problems (Last Reviewed 06/10/20 @ 21:[address] Judson Massey MD) Diabetic infection of left foot (Acute) Abscess of left foot (Acute) Cellulitis of left lower limb (Acute) Chest pain (Acute) Subjective: Feeling better, no fever, no n/v/d, mild foot pain - Physical Exam Vitals/I&O's: Vital Signs Temp Pulse Resp BP Pulse Ox 97.5 F L 54 L 18 164/56 H 95 08/22/20 09:00 08/22/20 09:00 08/22/20 10:00 08/22/20 09:00 08/22/20 09:00 Oxygen Delivery Method Room Air Weight: 83.8 kg Body Mass Index (BMI) 29.0 Finger Stick Blood Glucose 193 Intake and Output for Last 24 Hours 08/20/20 08/21/20 08/22/20 23:59 23:59 23:59 Intake Total 3751.00 / 3751.00 3641.00 / 4141.00 2011 Output Total 4000 / 4000 2550 / 3150 1800 / 1800 Balance -249.00 / -249.00 1091.00 / 991.00 212 / 212 General: Alert, Cooperative, No apparent distress Lungs: Clear to auscultation, Normal air movement Cardiovascular: Regular rate, Regular Rhythm Abdomen: Soft, Non Tender, Non-Distended Skin: Ulcer/ Wound - reviewed photo of foot Microbiology Past 72 Hours 08/19/20 16:59 Wound - Left Foot Gram Stain - Final 08/19/20 16:59 Wound - Left Foot Wound Culture - Preliminary No growth-Final to follow 08/19/20 16:59 Wound - Left Foot Anaerobic Culture - Preliminary Checking for anaerobes, further studies to follow. 08/17/20 16:51 Blood Culture (Wb) - Other Blood Culture - Preliminary No growth in 48 hours. 08/17/20 16:50 Blood Culture (Wb) - Other Bacteria Detection (PCR) - Final Coag Negative Staph 08/17/20 16:50 Blood Culture (Wb) - Other Blood Culture - Preliminary Coag Negative Staph 08/19/20 08:50 Mucosa - Nose SARS-CoV-2 Antigen (Rapid) - Final Laboratory Results 08/21/20 16:32: POC Glucose 120 H 08/21/20 18:27: Vancomycin Trough 15.7 H 08/21/20 21:27: POC Glucose 71 08/22/20 05:50: WBC 7.1, RBC 3.75 L, Hgb 10.9 L, Hct 32.7 L, MCV 87.2, MCH 29.1, MCHC 33.3, RDW Std Deviation 46.4 H, RDW Coeff of Marco 14.6, Plt Count 203, MPV 9.4 08/22/20 05:50: Sodium 144, Potassium 3.7, Chloride 116 H, Carbon Dioxide 22.0, Anion Gap 6, BUN 23 H, Creatinine 0.90, Estim Creat Clear Calc 48.07, Est GFR (MDRD) Af Amer 79, Est GFR (MDRD) Non-Af 65, BUN/Creatinine Ratio 25.6 H, Glucose 97, Calcium 8.5 08/22/20 07:36: POC Glucose 105 08/22/20 11:38: POC Glucose 344 H Current Medications Acetaminophen (Acetaminophen 325 Mg Tablet) 650 mg PO Q6H PRN PRN PRN Reason: Pain Score 1-10 /Temp>100.7 Last Admin: 08/20/20 08:51 Dose: 650 mg Documented by: Allopurinol (Allopurinol 100 Mg Tablet) 100 mg PO DAILY [facility] Last Admin: 08/22/20 09:54 Dose: 100 mg Documented by: Amlodipine Besylate (Amlodipine 5 Mg Tablet) 5 mg PO DAILY [facility] Last Admin: 08/22/20 09:52 Dose: 5 mg Documented by: Aspirin (Aspirin E.C. 81 Mg Tablet) 81 mg PO DAILYCM [facility] Last Admin: 08/22/20 09:54 Dose: 81 mg Documented by: Bisacodyl (Bisacodyl 5 Mg Tablet) 10 mg PO DAILY PRN PRN PRN Reason: Constipation Calamine/Phenol (Menthol/Lanolin/Calamine/Znox 113 Gm Tube) 1 applic TOPICAL TID [facility]; Protocol Last Admin: 08/22/20 06:19 Dose: Not Given Documented by: Carvedilol (Carvedilol 25 Mg Tablet) 25 mg PO BID [facility] Last Admin: 08/22/20 09:52 Dose: 25 mg Documented by: Dextrose (Dextrose 50%-Water 25 Gm/50 Ml Disp.Syrin) 0 gm IV X1 PRN; Protocol PRN Reason: Hypoglycemia Enoxaparin Sodium (Enoxaparin 40 Mg/0.4 Ml Syringe) 40 mg SC DAILY [facility] Last Admin: 08/17/20 23:03 Dose: Not Given Documented by: Glucagon (Glucagon 1 Mg/Ml Syringe) 1 mg IM .X1 PRN PRN Reason: Hypoglycemia Dextrose/Sodium Chloride (Dextrose 5%/0.9% Nacl) 1,000 mls @ 100 mls/hr IV .Q10H [facility] Last Admin: 08/22/20 09:45 Dose: 100 mls/hr Documented by: Ampicillin Sodium/Sulbactam (Sodium 3 gm/ Sodium Chloride) 112 mls @ 150 mls/hr IV Q8 [facility] Last Infusion: 08/22/20 07:05 Dose: Infused Documented by: Insulin Glargine (Insulin Glargine 100 Units/Ml Pen) 30 units SC BID [facility] Last Admin: 08/22/20 09:51 Dose: 30 units Documented by: Insulin Human Lispro (Insulin Lispro 100 Unit/Ml Insuln.Pen) 10 unit SC TIDCM [facility] Last Admin: 08/22/20 09:46 Dose: 10 u Documented by: Insulin Human Lispro (Insulin Lispro 100 Unit/Ml Insuln.Pen) 0 unit SC ACHS [facility]; Protocol Last Admin: 08/22/20 07:41 Dose: Not Given Documented by: Isosorbide Mononitrate (Isosorbide Mononitrate 60 Mg Tablet) 60 mg PO DAILY [facility] Last Admin: 08/22/20 09:51 Dose: 60 mg Documented by: Isosorbide Mononitrate (Isosorbide Mononitrate 60 Mg Tablet) 120 mg PO QPM [facility] Last Admin: 08/21/20 20:57 Dose: 120 mg Documented by: Levothyroxine Sodium (Levothyroxine 75 Mcg Tablet) 75 mcg PO QHS [facility] Last Admin: 08/21/20 21:45 Dose: 75 mcg Documented by: Lidocaine (Lidocaine 5% Patch) 2 patch TOPICAL DAILY [facility]; Protocol Last Admin: 08/22/20 09:46 Dose: 2 patch Documented by: Lisinopril (Lisinopril 10 Mg Tablet) 10 mg PO DAILY [facility] Last Admin: 08/22/20 09:52 Dose: 10 mg Documented by: Melatonin (Melatonin 10 Mg Tablet) 10 mg PO QHS [facility] Last Admin: 08/21/20 21:45 Dose: 10 mg Documented by: Metoclopramide HCl (Metoclopramide 10 Mg Tablet) 10 mg PO Q8H PRN PRN Reason: NAUSEA Last Admin: 08/18/20 18:49 Dose: 10 mg Documented by: Morphine Sulfate (Morphine 2 Mg/Ml Syringe) 2 - 4 mg IV Q3H PRN PRN PRN Reason: Pain Score 6-10 Last Admin: 08/22/20 03:14 Dose: 4 mg Documented by: Morphine Sulfate (Morphine (Oral Solution) 10mg/0.5ml Syringe) 6 mg PO Q6H PRN PRN PRN Reason: PAIN 1-10 OR FEVER Last Admin: 08/20/20 23:33 Dose: 6 mg Documented by: Nitroglycerin (Nitroglycerin (Inpatient Use) 0.4 Mg Tab.Subl) 0.4 mg SL Q5M PRN PRN Reason: CARDIAC/CHEST PAIN Nutritional Formula ([facility]) [facility] Last Admin: 08/22/20 09:51 Dose: 1 packet Documented by: Pancrelipase (Creon 24,[address] Capsule) 1 capsule PO BIDCM [facility] Last Admin: 08/22/20 09:52 Dose: 1 capsule Documented by: Pantoprazole Sodium (Pantoprazole Sodium 20 Mg Tablet) 20 mg PO DAILY [facility] Last Admin: 08/22/20 09:47 Dose: 20 mg Documented by: Polyethylene Glycol (Polyethylene Glycol 3350 17 Gm Packet) 17 gm PO DAILY [facility] Last Admin: 08/22/20 09:50 Dose: 17 gm Documented by: Pravastatin Sodium (Pravastatin 40 Mg Tablet) 40 mg PO QHS [facility] Last Admin: 08/21/20 21:45 Dose: 40 mg Documented by: Senna/Docusate Sodium (Senna/Docusate Sodium 1 Tablet) 2 tablet PO BID PRN PRN PRN Reason: Constipation Sodium Chloride (0.9% Saline Lock 10 Ml Syringe) 10 - 40 ml IV UD PRN PRN Reason: SALINE FLUSH Last Admin: 08/21/20 15:24 Dose: 10 ml Documented by: Tizanidine HCl (Tizanidine Hcl 2 Mg Tablet) 4 mg PO TID [facility] Last Admin: 08/22/20 06:18 Dose: 4 mg Documented by: Trazodone HCl (Trazodone 100 Mg Tablet) 100 mg PO QHS PRN PRN Reason: SLEEP Last Admin: 08/21/20 23:11 Dose: 100 mg Documented by: Venlafaxine HCl (Venlafaxine Hcl 100 Mg Tablet) 100 mg PO BID [facility] Last Admin: 08/22/20 09:50 Dose: 100 mg Documented by: Medical Necessity - Tobacco Use Smoking Status: Never smoker Route of nutrition/ use of supplements: [] Nutritional Intake: [] IV Site: [] Maloney Catheter: [] - Assessment/Plan Antibiotics: [] Assessment/Plan: [] Active and Suspected Problems (Last Reviewed 06/10/20 @ 21:[address] Judson Massey MD) Diabetic infection of left foot (Acute) Abscess of left foot (Acute) Cellulitis of left lower limb (Acute) Chest pain (Acute) DM L foot infection - wound cx with GBS, CoNS, e. faecalis. MRSA pcr neg. / bcx with CoNS, likely contaminant. OR 08/19 for I&D of abscess. MRI showed no osteo. Narrow to unasyn, ok for discharge on 1 week augmentin 875mg bid. Will follow as needed, d/w sample case porter
--- NOTE | 2020-08-22 12:34 | CASEMGMT ---
Social Work Note BRARY updated that pt is agreeable to [facility]. BARRY placed a call to Sia with TCU, TCU has a bed available and is able to accept pt. SW in to speak with pt. BARRY introduced self and role at [facility]. Pt is alert and orientated. Patient was provided a list of SNF providers including quality and resource use data and consistent with the patient?s preferred geographic region, medical needs, and insurance network. Pt confirms preferred provider is [facility]. Pt then states she and Dr. Rush doesn't get along well as he always tries to change her medications. SW informed pt that she can go to a different SNF. Pt states I am not going to a custodial with this illness going around. BARRY then received call from Sia with TCU stating TCU is able to accept pt. BARRY updated pt. BARRY updated PA. Plan: TCU today Shabnam Merino APPLICATION INTEGRATION ENGINEER, MANAGER CUSTOMER SERVICE
--- NOTE | 2020-08-22 13:06 | PCM.EXTCARCO ---
- Diet 08/19/20 16:30 Diet: Carbohydrate Controlled Is pt able to select menu?: Yes Diet Comments: provide 1-2 oz extra protein Q meal - Routine Orders/Code Status Enema Type: Fleetz Enema Frequency: Daily PRN Suppository Type: Dulcolax 10mg Suppository Frequency: Daily PRN Routine Lab Work: - - Weekly CBC, BMP. Code Status: DNC-A - No intubation - Wound(s) LEFT FOOT Wound Type: Neuropathic/Diabetic Foot Ulcer Dressing Change: AntiMicrobial (Aquacel AG, etc) Left Foot, Surgical Site Wound Type: 2 surgical wounds s/p I&D Dressing Change: Packed with Iodoform - Suggestions for Active Care Change Position every (hours): 2 Times a day to sit in chair: 3 - Therapies Weight Bearing: Non weight bearing Extremity Affected:: Left Lower Physical Therapy: Eval and Treat Occupational Therapy: Eval and Treat - Problem/Diagnosis (1) Diabetic infection of left foot Status: Acute (2) Abscess of left foot Status: Acute (3) Debility Status: Chronic (4) Diabetes mellitus type 2 in obese Status: Chronic (5) Depression Status: Chronic (6) Allergic rhinitis Status: Chronic (7) Gout Status: Chronic (8) Muscle spasm Status: Chronic (9) Insomnia Status: Chronic (10) Obesity Status: Chronic (11) Vitamin D deficiency Status: Chronic (12) Peripheral arterial occlusive disease Status: Chronic (13) Charcot's joint of left foot Status: Chronic (14) Type 2 diabetes mellitus with diabetic polyneuropathy Status: Chronic (15) 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 Hatfield @ [facility]:(Promus Premier 4.0 X 12 mm L2 stent from distal left main into proximal LCX; Promus Premier RX 2.25 X 12 mm L1 stent in distal LCX) 12/03/2018:Triple vessel CAD of the LAD, LCX, RCA Successful PTCA/YASIR mid LCX with a 2.5 x 20 Promus Synergy stent; 85%-->0-%, no dissection. 12/24/18:FFR of RCA=0.97, negative, left for medical managemen (19) History of coronary artery bypass graft Status: Chronic Comment: CABG X 3 vessels [facility]:DANIEL to LAD, reverse SVG to dx and to 2nd OM per Dr. Borjas @ [facility] 09/09/2014 (20) Atherosclerotic heart disease of [place] coronary artery without angina pectoris Status: Chronic Comment: CABG X 3 vessels [facility]: DANIEL to LAD, reverse SVG to dx and to 2nd OM per Dr. Borjas @ [facility] 09/09/2014; PTCA/YASIR to Left main, LAD, and OM1 per Dr. Hatfield 12/21/2014; (21) Carotid artery disease Status: Chronic (22) Peripheral vascular disease Status: Chronic (23) Hyperlipidemia Status: Chronic (24) Hypothyroidism Status: Chronic (25) Iron deficiency anemia Status: Chronic (26) GERD (gastroesophageal reflux disease) Status: Chronic - Allergies/Procedures Done in Hospital Allergies/Adverse Reactions: Allergies doxycycline Allergy (Severe, Verified 08/17/20 15:19) all over body hives and itching atorvastatin calcium [From Lipitor] Allergy (Verified 08/17/20 15:19) Unknown bupropion HCl [From Wellbutrin] Allergy (Verified 08/17/20 15:19) Unknown mannitol [From Reclast] Allergy (Verified 08/17/20 15:19) joint pain, unable to breathe, unable to walk propoxyphene napsylate [From Darvocet-N 100] Allergy (Verified 08/17/20 15:19) Unknown Quinolones Allergy (Verified 08/17/20 15:19) Unknown Tetanus Vaccines and Toxoid [Tetanus Vaccines & Toxoid] Allergy (Verified 08/17/20 15:19) Chest tightness tizanidine Allergy (Verified 08/17/20 15:19) Unknown zoledronic acid [From Reclast] Allergy (Verified 08/17/20 15:19) joint pain,unable to breathe, unaable to walk JOINT PAIN,UNABLE TO BREATHE,UNABLE TO WALK pravastatin Adverse Reaction (Severe, Verified 08/17/20 15:19) Myalgias gemfibrozil Adverse Reaction (Intermediate, Verified 08/17/20 15:19) Unknown NSAIDS (Non-Steroidal Anti-Inflamma Adverse Reaction (Verified 08/17/20 15:19) Other Procedures: - - debridement of left foot ulcer, drainage of abscess left foot - Type of Care/Length of Stay Estimated LOS: Convalescent Care Less Than 30 days Type of Care Needed: Skilled Rehab Potential: Fair Prognosis: Fair - Additional Orders/Day of Discharge Additional Orders: Cleanse wounds to left plantar foot daily with normal saline. Pat dry. Pack open areas with 1/4 inch iodoform gauze in place Aquacel Ag along incision. Cover with dry dressing. Wrapped in Kerlix and Arjun wrap. Change daily and as needed. Strict nonweightbearing left lower extremity. H&P will serve as current which was dated: 08/17/20 Day of Discharge: 08/22/20 - Dietary and Speech Recommendations Dietitian Recommendations/Changes: Will liberalize diet to carbohydrate-controlled (no caloric restriction); add cardiac restriction as intake improves at meals. Will d/c glucerna shake w/ medpass--pt refuses to take it. Will continue Blue BID. Will add extra protein on meal trays as pt willing. - Follow Up Care Primary Care Physician: Con Johnson MD [Primary Care Provider] - 3-5 Days if not improving Please follow up with your Primary Care Physician in: 1 Week Please Follow Up With: Ivanna Magana DPM - at wound care center When: Monday August 24, 2020 Please Follow Up With: Maribell Chau, PA When: As scheduled, 10/10/2020
--- NOTE | 2020-08-22 13:15 | DS.PCM_ITS ---
<Kasandra Perez PIT RECORDER - Last Filed: 08/22/20 15:16> Discharge Date and Diagnosis - Problem List Patient Problems: Active and Suspected Problems (Last Reviewed 06/10/20 @ 21:[address] Judson Massey MD) Diabetic infection of left foot (Acute) Abscess of left foot (Acute) Date of Admission: 08/17/20 Date of Discharge: 08/22/20 - Primary Discharge Diagnosis Acute Problems: Active Problems (Last Reviewed 06/10/20 @ 21:[address] Judson Massey MD) 1. Acute, recurrent infected left foot ulcer, Charcot deformity 1. CAD with history of CABG and stents 3. Chronic kidney disease stage IIIa 4. Type 2 diabetes mellitus 5. Hypertension 6. GERD 7. Hypothyroidism 8. PVD 9. Chronic microcytic anemia/iron deficiency anemia 10. Anxiety 11. Chronic severe malnutrition - Secondary Discharge Diagnosis Chronic Problems: Chronic Problems (Last Reviewed 06/10/20 @ 21:[address] 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 Hatfield @ [facility]:(Promus Premier 4.0 X 12 mm L2 stent from distal left main into proximal LCX; Promus Premier RX 2.25 X 12 mm L1 stent in distal LCX) 12/03/2018:Triple vessel CAD of the LAD, LCX, RCA Successful PTCA/YASIR mid LCX with a 2.5 x 20 Promus Synergy stent; 85%-->0-%, no dissection. 12/24/18:FFR of RCA=0.97, negative, left for medical managemen History of coronary artery bypass graft (Chronic) CABG X 3 vessels [facility]:DANIEL to LAD, reverse SVG to dx and to 2nd OM per Dr. Borjas @ [facility] 09/09/2014 Atherosclerotic heart disease of mechoopda coronary artery without angina pectoris (Chronic) CABG X 3 vessels [facility]: DANIEL to LAD, reverse SVG to dx and to 2nd OM per Dr. Borjas @ [facility] 09/09/2014; PTCA/YASIR to Left main, LAD, and OM1 per Dr. Hatfield 12/21/2014; Carotid artery disease (Chronic) Peripheral vascular disease (Chronic) Hyperlipidemia (Chronic) Hypothyroidism (Chronic) Iron deficiency anemia (Chronic) GERD (gastroesophageal reflux disease) (Chronic) Hospital Course and Treatment Imaging Results: Diagnostic Data Foot X-Ray 08/17/20 15:42 IMPRESSION: 1. No acute fracture or dislocation. 2. Severe midfoot arthrosis. Electronically Signed: Tonny Khalil MD at 17:11 EDT Tel , Service support , Lower Extremity MRI 08/18/20 09:00 IMPRESSION: 1. Cellulitis of the plantar aspect of the foot but no abscess or osteomyelitis. 2. Severe tarsometatarsal joint arthrosis possibly from prior Lisfranc joint injury Electronically Signed: Tonny Khalil MD at 11:11 EDT Tel , Service support , Dr. Zayas- Podiatry Dr. Webb- ID Operations: - - Patient underwent debridement of left foot ulcer and left foot abscess 08/19/2020. Procedures: None Summary of Care Provided: The patient is a 75 year old F admitted 08/17/2020 due to left foot ulcer. 1. Acute, recurrent infected left foot ulcer, Charcot deformity-podiatry and ID following during admission. Previous incision and drainage left foot with widespread debridement 04/15/2020. Cultures at that time grew multiple organisms including strep, Pseudomonas and staph. MRI without osteo. Patient underwent debridement of left foot ulcer and left foot abscess 08/19/2020. Repeat cultures this admission growing strep agalactiae, Staphylococcus caprae, Enterococcus and anaerobic cocci. Discharged on 1 week of Augmentin 875 mg twice daily per ID recommendations. Follow-up with podiatry 08/24/2020. Continue dressing changes as ordered. SNF at [place] for further PT/OT and wound care. 1. CAD with history of CABG and stents- Prior heart cath November 2018 which demonstrated mid RCA lesion 65% stenosis, FFR was done with no PCI. Stress echo June 2019 negative for ischemia. Continue medical management including aspirin, Plavix, carvedilol, statin, isosorbide. 3. Chronic kidney disease stage IIIa-at baseline, trend BMP. 4. Type 2 diabetes mellitus- Continue home insulin regimen. Accu-Cheks with sliding scale insulin. Hemoglobin A1c January 2020 7.8%. 5. Hypertension-stable, continue Norvasc, Coreg, lisinopril, isosorbide. 6. GERD-continue PPI. 7. Hypothyroidism-continue Synthroid. 8. PVD-continue aspirin, Plavix, statin. 9. Chronic microcytic anemia/iron deficiency anemia-stable. 10. Anxiety-uses CBD oil as needed. 11. Chronic severe malnutrition-dietitian consult. General: Alert, Oriented x3, Cooperative HEENT: Atraumatic, PERRLA, EOMI, Normocephalic Neck: Supple, No JVD, Negative Carotid Bruits Lungs: Clear to auscultation, Normal air movement Cardiovascular: Regular rate, No murmurs Abdomen: Bowel Sounds Present, Soft, Non Tender, Non-Distended Extremities: No clubbing, No cyanosis, No edema, Capillary Refill Less than 3 Seconds Skin: - - Left foot dressing intact Musculoskeletal: No Tenderness to Palpation of Joints or Extremities Neurological: Cranial nerves II-XII grossly intact, Neuro grossly intact Psych/Mental Status: Normal Affect, Appropriate Patient seen and examined prior to discharge. Physical assessment as noted above. Patient is stable for discharge with follow up recommendations as noted above. This patient was seen by CLIFFORD Grayson under the supervision of Dr. Weir. Patient Problems: Active and Suspected Problems (Last Reviewed 06/10/20 @ 21:[address] Judson Massey MD) Diabetic infection of left foot (Acute) Abscess of left foot (Acute) - Physical Exam Vitals/I&O's: Vital Signs Temp Pulse Resp BP Pulse Ox 97.5 F L 54 L 18 164/56 H 95 08/22/20 09:00 08/22/20 09:00 08/22/20 10:00 08/22/20 09:00 08/22/20 09:00 Oxygen Delivery Method Room Air Weight: 184 lb 11.958 oz Body Mass Index (BMI) 29.0 Finger Stick Blood Glucose 193 Intake and Output for Last 24 Hours 08/20/20 08/21/20 08/22/20 23:59 23:59 23:59 Intake Total 3751.00 / 3751.00 3641.00 / 4141.00 2011 Output Total 4000 / 4000 2550 / 3150 1800 / 1800 Balance -249.00 / -249.00 1091.00 / 991.00 212 / 212 Microbiology Past 72 Hours 08/19/20 16:59 Wound - Left Foot Gram Stain - Final 08/19/20 16:59 Wound - Left Foot Wound Culture - Preliminary No growth-Final to follow 08/19/20 16:59 Wound - Left Foot Anaerobic Culture - Preliminary Checking for anaerobes, further studies to follow. 08/17/20 16:51 Blood Culture (Wb) - Other Blood Culture - Preliminary No growth in 48 hours. 08/17/20 16:50 Blood Culture (Wb) - Other Bacteria Detection (PCR) - Final Coag Negative Staph 08/17/20 16:50 Blood Culture (Wb) - Other Blood Culture - Preliminary Coag Negative Staph 08/19/20 08:50 Mucosa - Nose SARS-CoV-2 Antigen (Rapid) - Final Laboratory Results 08/21/20 16:32: POC Glucose 120 H 08/21/20 18:27: Vancomycin Trough 15.7 H 08/21/20 21:27: POC Glucose 71 08/22/20 05:50: WBC 7.1, RBC 3.75 L, Hgb 10.9 L, Hct 32.7 L, MCV 87.2, MCH 29.1, MCHC 33.3, RDW Std Deviation 46.4 H, RDW Coeff of Marco 14.6, Plt Count 203, MPV 9.4 08/22/20 05:50: Sodium 144, Potassium 3.7, Chloride 116 H, Carbon Dioxide 22.0, Anion Gap 6, BUN 23 H, Creatinine 0.90, Estim Creat Clear Calc 48.07, Est GFR (MDRD) Af Amer 79, Est GFR (MDRD) Non-Af 65, BUN/Creatinine Ratio 25.6 H, Glucose 97, Calcium 8.5 08/22/20 07:36: POC Glucose 105 08/22/20 11:38: POC Glucose 344 H Current Medications Acetaminophen (Acetaminophen 325 Mg Tablet) 650 mg PO Q6H PRN PRN PRN Reason: Pain Score 1-10 /Temp>100.7 Last Admin: 08/20/20 08:51 Dose: 650 mg Documented by: Allopurinol (Allopurinol 100 Mg Tablet) 100 mg PO DAILY [facility] Last Admin: 08/22/20 09:54 Dose: 100 mg Documented by: Amlodipine Besylate (Amlodipine 5 Mg Tablet) 5 mg PO DAILY [facility] Last Admin: 08/22/20 09:52 Dose: 5 mg Documented by: Aspirin (Aspirin E.C. 81 Mg Tablet) 81 mg PO DAILYCM [facility] Last Admin: 08/22/20 09:54 Dose: 81 mg Documented by: Bisacodyl (Bisacodyl 5 Mg Tablet) 10 mg PO DAILY PRN PRN PRN Reason: Constipation Calamine/Phenol (Menthol/Lanolin/Calamine/Znox 113 Gm Tube) 1 applic TOPICAL TID [facility]; Protocol Last Admin: 08/22/20 06:19 Dose: Not Given Documented by: Carvedilol (Carvedilol 25 Mg Tablet) 25 mg PO BID [facility] Last Admin: 08/22/20 09:52 Dose: 25 mg Documented by: Dextrose (Dextrose 50%-Water 25 Gm/50 Ml Disp.Syrin) 0 gm IV X1 PRN; Protocol PRN Reason: Hypoglycemia Enoxaparin Sodium (Enoxaparin 40 Mg/0.4 Ml Syringe) 40 mg SC DAILY [facility] Last Admin: 08/17/20 23:03 Dose: Not Given Documented by: Glucagon (Glucagon 1 Mg/Ml Syringe) 1 mg IM .X1 PRN PRN Reason: Hypoglycemia Dextrose/Sodium Chloride (Dextrose 5%/0.9% Nacl) 1,000 mls @ 100 mls/hr IV .Q10H [facility] Last Admin: 08/22/20 09:45 Dose: 100 mls/hr Documented by: Ampicillin Sodium/Sulbactam (Sodium 3 gm/ Sodium Chloride) 112 mls @ 150 mls/hr IV Q8 [facility] Last Infusion: 08/22/20 07:05 Dose: Infused Documented by: Insulin Glargine (Insulin Glargine 100 Units/Ml Pen) 30 units SC BID [facility] Last Admin: 08/22/20 09:51 Dose: 30 units Documented by: Insulin Human Lispro (Insulin Lispro 100 Unit/Ml Insuln.Pen) 10 unit SC TIDCM [facility] Last Admin: 08/22/20 09:46 Dose: 10 u Documented by: Insulin Human Lispro (Insulin Lispro 100 Unit/Ml Insuln.Pen) 0 unit SC ACHS [facility]; Protocol Last Admin: 08/22/20 07:41 Dose: Not Given Documented by: Isosorbide Mononitrate (Isosorbide Mononitrate 60 Mg Tablet) 60 mg PO DAILY [facility] Last Admin: 08/22/20 09:51 Dose: 60 mg Documented by: Isosorbide Mononitrate (Isosorbide Mononitrate 60 Mg Tablet) 120 mg PO QPM [facility] Last Admin: 08/21/20 20:57 Dose: 120 mg Documented by: Levothyroxine Sodium (Levothyroxine 75 Mcg Tablet) 75 mcg PO QHS [facility] Last Admin: 08/21/20 21:45 Dose: 75 mcg Documented by: Lidocaine (Lidocaine 5% Patch) 2 patch TOPICAL DAILY [facility]; Protocol Last Admin: 08/22/20 09:46 Dose: 2 patch Documented by: Lisinopril (Lisinopril 10 Mg Tablet) 10 mg PO DAILY [facility] Last Admin: 08/22/20 09:52 Dose: 10 mg Documented by: Melatonin (Melatonin 10 Mg Tablet) 10 mg PO QHS [facility] Last Admin: 08/21/20 21:45 Dose: 10 mg Documented by: Metoclopramide HCl (Metoclopramide 10 Mg Tablet) 10 mg PO Q8H PRN PRN Reason: NAUSEA Last Admin: 08/18/20 18:49 Dose: 10 mg Documented by: Morphine Sulfate (Morphine 2 Mg/Ml Syringe) 2 - 4 mg IV Q3H PRN PRN PRN Reason: Pain Score 6-10 Last Admin: 08/22/20 03:14 Dose: 4 mg Documented by: Morphine Sulfate (Morphine (Oral Solution) 10mg/0.5ml Syringe) 6 mg PO Q6H PRN PRN PRN Reason: PAIN 1-10 OR FEVER Last Admin: 08/20/20 23:33 Dose: 6 mg Documented by: Nitroglycerin (Nitroglycerin (Inpatient Use) 0.4 Mg Tab.Subl) 0.4 mg SL Q5M PRN PRN Reason: CARDIAC/CHEST PAIN Nutritional Formula (Nutritional Supp[facility] (Blue) Packet) [facility] Last Admin: 08/22/20 09:51 Dose: 1 packet Documented by: Pancrelipase (Creon 24,[address] Capsule) 1 capsule PO BIDCM [facility] Last Admin: 08/22/20 09:52 Dose: 1 capsule Documented by: Pantoprazole Sodium (Pantoprazole Sodium 20 Mg Tablet) 20 mg PO DAILY [facility] Last Admin: 08/22/20 09:47 Dose: 20 mg Documented by: Polyethylene Glycol (Polyethylene Glycol 3350 17 Gm Packet) 17 gm PO DAILY [facility] Last Admin: 08/22/20 09:50 Dose: 17 gm Documented by: Pravastatin Sodium (Pravastatin 40 Mg Tablet) 40 mg PO QHS [facility] Last Admin: 08/21/20 21:45 Dose: 40 mg Documented by: Senna/Docusate Sodium (Senna/Docusate Sodium 1 Tablet) 2 tablet PO BID PRN PRN PRN Reason: Constipation Sodium Chloride (0.9% Saline Lock 10 Ml Syringe) 10 - 40 ml IV UD PRN PRN Reason: SALINE FLUSH Last Admin: 08/21/20 15:24 Dose: 10 ml Documented by: Tizanidine HCl (Tizanidine Hcl 2 Mg Tablet) 4 mg PO TID [facility] Last Admin: 08/22/20 06:18 Dose: 4 mg Documented by: Trazodone HCl (Trazodone 100 Mg Tablet) 100 mg PO QHS PRN PRN Reason: SLEEP Last Admin: 08/21/20 23:11 Dose: 100 mg Documented by: Venlafaxine HCl (Venlafaxine Hcl 100 Mg Tablet) 100 mg PO BID [facility] Last Admin: 08/22/20 09:50 Dose: 100 mg Documented by: Discharge Diet: Carb Control Diet Discharge Activity: Use Walker Weight Bearing Status: No weight bearing - left, has TABLE MOUNTAIN boot if required limited ambulation Keep extremity elevated above heart level: Left Leg Call your doctor if your incision/area has: Increased Pain/ Swelling, Increased Redness, Foul Smelling Discharge Call your doctor if you observe: Fever of 101 or Higher, Numbness or Tingling, Shortness of breath, Fainting spells, Chest pain, Uncontrolled pain Cleanse incision/area with: Soap & Water Additional Dressing/Incision Instructions:: change dressing daily with 1/4 iodoform packing to proximal and distal incision line to tracking area, cover with silver alginate, 4x4, abd, kerlix, shree wrap Home Medications: Medications to take at Discharge Pravastatin Sodium 40 mg PO QHS 03/10/17 amlodipine 5 mg tablet 5 mg PO DAILY tab 05/05/18 Esomeprazole Magnesium 20 mg PO DAILY 09/21/19 clopidogrel 75 mg tablet 75 mg PO DAILY #90 tab 11/23/19 Allopurinol 100 mg PO DAILY 03/17/20 Calcium Citrate 200 mg PO BID #0 03/17/20 aspirin 81 mg tablet,delayed release 81 mg PO DAILY 04/05/20 cbd 1 dose PO 4X/DAY PRN 04/05/20 [id number] 24,000-76,000-120,000 unit capsule,delayed rel 1 cap PO BID cap 04/05/20 Menthol/Lanolin/Calamine/Znox [Calmoseptine Ointment] 1 applic TOPICAL TID 04/19/20 Acetaminophen [Tylenol] 1,000 mg PO Q6H PRN PRN tab 04/25/20 Nitroglycerin (INPATIENT USE) [Nitrostat] 0.4 mg SUBLINGUAL Q5M PRN tab.subl 04/25/20 Carvedilol 25 mg PO BID 08/17/20 Isosorbide Mononitrate [Isosorbide Mononitrate ER] 60 mg PO DAILY 08/17/20 Isosorbide Mononitrate [Isosorbide Mononitrate ER] 120 mg PO DAILY 08/17/20 Levothyroxine Sodium 75 mcg PO QHS 08/17/20 Linaclotide [Linzess] 72 mcg PO DAILY 08/17/20 Lisinopril 10 mg PO DAILY 08/17/20 Melatonin 6 mg PO QHS 08/17/20 Metoclopramide HCl 10 mg PO Q8H PRN 08/17/20 Morphine Sulfate 3 ml PO Q6H PRN PRN 08/17/20 Multivitamin/Iron/Folic Acid [[facility] Spectravite Ultra Women Tb] 0.5 tablet PO BID 08/17/20 Nutritional Supplement [Blue - ORANGE FLAVOR] 1 packet PO BIDCM 08/17/20 Tizanidine HCl 4 mg PO Q8H PRN 08/17/20 Trazodone HCl 100 mg PO QHS PRN 08/17/20 Tryptophan [l-Tryptophan] 500 mg PO DINNER 08/17/20 Venlafaxine HCl 100 mg PO BID 08/17/20 Wheat Dextrin [Benefiber] 15 ml PO DAILY 08/17/20 Amox/Clavulanate Tablet [Augmentin Tablet] 875 mg PO BID 7 Days tablet 08/22/20 Insulin Glargine [Lantus SoloStar Pen] 30 units SC BID pen 08/22/20 Insulin Lispro [Humalog KwikPen] 10 unit SC TIDCM insuln.pen 08/22/20 Insulin Lispro [Humalog KwikPen] See Protocol SC ACHS insuln.pen 08/22/20 Lidocaine [Lidoderm Patch] 2 patch TOPICAL DAILY patch 08/22/20 Primary Care Physician: Con Johnson MD [Primary Care Provider] - 3-5 Days if not improving Please follow up with your Primary Care Physician in: 1 Week Please Follow Up With: Ivanna Magana DPM - at wound care center When: Monday August 24, 2020 Please Follow Up With: Maribell Chau PA When: As scheduled, 10/10/2020 Disposition: [facility] facility Minutes spent on discharge:: 35 Patient Condition:: Stable Medical Necessity - Tobacco Use Smoking Status: Never smoker Meaningful Use Info Meaningful Use Diagnoses (Choose all that apply): None applicable <Paintsil,Lerna - Last Filed: 08/22/20 15:33> Discharge Date and Diagnosis - Primary Discharge Diagnosis Acute Problems: Active Problems (Last Reviewed 06/10/20 @ 21:[address] Judson Massey MD) Diabetic infection of left foot (Acute) Abscess of left foot (Acute) - Secondary Discharge Diagnosis Chronic Problems: Chronic Problems (Last Reviewed 06/10/20 @ 21:[address] 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 Hatfield @ [facility]:(Promus Premier 4.0 X 12 mm L2 stent from distal left main into proximal LCX; Promus Premier RX 2.25 X 12 mm L1 stent in distal LCX) 12/03/2018:Triple vessel CAD of the LAD, LCX, RCA Successful PTCA/YASIR mid LCX with a 2.5 x 20 Promus Synergy stent; 85%-->0-%, no dissection. 12/24/18:FFR of RCA=0.97, negative, left for medical managemen History of coronary artery bypass graft (Chronic) CABG X 3 vessels [facility]:DANIEL to LAD, reverse SVG to dx and to 2nd OM per Dr. Borjas @ [facility] 09/09/2014 Atherosclerotic heart disease of mechoopda coronary artery without angina pectoris (Chronic) CABG X 3 vessels [facility]: DANIEL to LAD, reverse SVG to dx and to 2nd OM per Dr. Borjas @ [facility] 09/09/2014; PTCA/YASIR to Left main, LAD, and OM1 per Dr. Hatfield 12/21/2014; Carotid artery disease (Chronic) Peripheral vascular disease (Chronic) Hyperlipidemia (Chronic) Hypothyroidism (Chronic) Iron deficiency anemia (Chronic) GERD (gastroesophageal reflux disease) (Chronic) Hospital Course and Treatment Summary of Care Provided: This patient was seen in conjunction with Kasandra Perez NP. I have inde pendently interviewed and examined the patient and reviewed pertinent historical, laboratory, and other data. Please refer to her note for patient's presentation, findings, and recommendations. 75-year-old with multiple comorbidities significant for type II DM with diabetic neuropathy, Charcot joint, history of right TMA who comes in. From the wound center with left foot infection/abscess. Patient follows with Dr. Magana wound center. She has had multiple wounds to the foot and complains of increased pain in the left foot a couple of days. In the wound center, patient had some abscess and some pus was drained out of the foot. She was admitted managed as acute on chronic/recurrent nonhealing ulcer of the left midfoot with abscess. Patient was started on broad-spectrum antibiotics. She underwent treatment of the left foot ulcer, drainage of abscess of the left foot on 07/26/20. Her blood cultures grew 1 out of 2 coagulase-negative staph, was believed to be a contaminant. Her outpatient wound cultures grew strep agalactiae, staph and Enterococcus. MRSA PCR was negative. Patient initially was on IV vancomycin and Unasyn. MRI of the foot showed no osteomyelitis. ID and podiatry were consulted during this hospital stay. Patient was discharged to finish up 1 week of Augmentin. She also follow-up with podiatry outpatient. Of discharge, patient was seen and examined. Complaining of back pain that was believed to be musculoskeletal. She stated that Flexeril seems to help. Vitals were reviewed -stable Physical Exam: Gen: Comfortable, not pale, not jaundiced, alert oriented x3 CVS:HS I +II, regular, no murmurs RESP: Diminished at lung bases GI: BS present and normal, nontender, no palpable organs EXT:No edema, dressing over the left foot. Right TMA - Physical Exam Vitals/I&O's: Vital Signs Temp Pulse Resp BP Pulse Ox 97.5 F L 54 L 18 164/56 H 95 08/22/20 09:00 08/22/20 09:00 08/22/20 10:00 08/22/20 09:00 08/22/20 09:00 Oxygen Delivery Method Room Air Weight: 83.8 kg Body Mass Index (BMI) 29.0 Finger Stick Blood Glucose 193 Intake and Output for Last 24 Hours 08/20/20 08/21/20 08/22/20 23:59 23:59 23:59 Intake Total 3751.00 / 3751.00 3641.00 / 4141.00 2812 / 2812 Output Total 4000 / 4000 2550 / 3150 1800 / 1800 Balance -249.00 / -249.00 1091.00 / 991.00 1012 / 1012 Microbiology Past 72 Hours 08/19/20 16:59 Wound - Left Foot Gram Stain - Final 08/19/20 16:59 Wound - Left Foot Wound Culture - Preliminary No growth-Final to follow 08/19/20 16:59 Wound - Left Foot Anaerobic Culture - Preliminary Checking for anaerobes, further studies to follow. 08/17/20 16:51 Blood Culture (Wb) - Other Blood Culture - Preliminary No growth in 48 hours. 08/17/20 16:50 Blood Culture (Wb) - Other Bacteria Detection (PCR) - Final Coag Negative Staph 08/17/20 16:50 Blood Culture (Wb) - Other Blood Culture - Preliminary Coag Negative Staph Laboratory Results 08/21/20 16:32: POC Glucose 120 H 08/21/20 18:27: Vancomycin Trough 15.7 H 08/21/20 21:27: POC Glucose 71 08/22/20 05:50: WBC 7.1, RBC 3.75 L, Hgb 10.9 L, Hct 32.7 L, MCV 87.2, MCH 29.1, MCHC 33.3, RDW Std Deviation 46.4 H, RDW Coeff of Marco 14.6, Plt Count 203, MPV 9.4 08/22/20 05:50: Sodium 144, Potassium 3.7, Chloride 116 H, Carbon Dioxide 22.0, Anion Gap 6, BUN 23 H, Creatinine 0.90, Estim Creat Clear Calc 48.07, Est GFR (MDRD) Af Amer 79, Est GFR (MDRD) Non-Af 65, BUN/Creatinine Ratio 25.6 H, Glucose 97, Calcium 8.5 08/22/20 07:36: POC Glucose 105 08/22/20 11:38: POC Glucose 344 H Current Medications Acetaminophen (Acetaminophen 325 Mg Tablet) 650 mg PO Q6H PRN PRN PRN Reason: Pain Score 1-10 /Temp>100.7 Last Admin: 08/20/20 08:51 Dose: 650 mg Documented by: Allopurinol (Allopurinol 100 Mg Tablet) 100 mg PO DAILY [facility] Last Admin: 08/22/20 09:54 Dose: 100 mg Documented by: Amlodipine Besylate (Amlodipine 5 Mg Tablet) 5 mg PO DAILY [facility] Last Admin: 08/22/20 09:52 Dose: 5 mg Documented by: Aspirin (Aspirin E.C. 81 Mg Tablet) [facility] Last Admin: 08/22/20 09:54 Dose: 81 mg Documented by: Bisacodyl (Bisacodyl 5 Mg Tablet) 10 mg PO DAILY PRN PRN PRN Reason: Constipation Calamine/Phenol (Menthol/Lanolin/Calamine/Znox 113 Gm Tube) 1 applic TOPICAL TID [facility]; Protocol Last Admin: 08/22/20 06:19 Dose: Not Given Documented by: Carvedilol (Carvedilol 25 Mg Tablet) 25 mg PO BID [facility] Last Admin: 08/22/20 09:52 Dose: 25 mg Documented by: Dextrose (Dextrose 50%-Water 25 Gm/50 Ml Disp.Syrin) 0 gm IV X1 PRN; Protocol PRN Reason: Hypoglycemia Enoxaparin Sodium (Enoxaparin 40 Mg/0.4 Ml Syringe) 40 mg SC DAILY [facility] Last Admin: 08/17/20 23:03 Dose: Not Given Documented by: Glucagon (Glucagon 1 Mg/Ml Syringe) 1 mg IM .X1 PRN PRN Reason: Hypoglycemia Dextrose/Sodium Chloride (Dextrose 5%/0.9% Nacl) 1,000 mls @ 100 mls/hr IV .Q10H [facility] Last Admin: 08/22/20 09:45 Dose: 100 mls/hr Documented by: Ampicillin Sodium/Sulbactam (Sodium 3 gm/ Sodium Chloride) 112 mls @ 150 mls/hr IV Q8 [facility] Last Infusion: 08/22/20 07:05 Dose: Infused Documented by: Insulin Glargine (Insulin Glargine 100 Units/Ml Pen) 30 units SC BID [facility] Last Admin: 08/22/20 09:51 Dose: 30 units Documented by: Insulin Human Lispro (Insulin Lispro 100 Unit/Ml Insuln.Pen) 10 unit SC TIDCM [facility] Last Admin: 08/22/20 09:46 Dose: 10 u Documented by: Insulin Human Lispro (Insulin Lispro 100 Unit/Ml Insuln.Pen) 0 unit SC ACHS [facility]; Protocol Last Admin: 08/22/20 07:41 Dose: Not Given Documented by: Isosorbide Mononitrate (Isosorbide Mononitrate 60 Mg Tablet) 60 mg PO DAILY [facility] [facility] Last Admin: 08/22/20 09:51 Dose: 60 mg Documented by: Isosorbide Mononitrate (Isosorbide Mononitrate 60 Mg Tablet) 120 mg PO QPM [facility] Last Admin: 08/21/20 20:57 Dose: 120 mg Documented by: Levothyroxine Sodium (Levothyroxine 75 Mcg Tablet) 75 mcg PO QHS [facility] Last Admin: 08/21/20 21:45 Dose: 75 mcg Documented by: Lidocaine (Lidocaine 5% Patch) 2 patch TOPICAL DAILY [facility]; Protocol Last Admin: 08/22/20 09:46 Dose: 2 patch Documented by: Lisinopril (Lisinopril 10 Mg Tablet) 10 mg PO DAILY [facility] Last Admin: 08/22/20 09:52 Dose: 10 mg Documented by: Melatonin (Melatonin 10 Mg Tablet) 10 mg PO QHS [facility] Last Admin: 08/21/20 21:45 Dose: 10 mg Documented by: Metoclopramide HCl (Metoclopramide 10 Mg Tablet) 10 mg PO Q8H PRN PRN Reason: NAUSEA Last Admin: 08/18/20 18:49 Dose: 10 mg Documented by: Morphine Sulfate (Morphine 2 Mg/Ml Syringe) 2 - 4 mg IV Q3H PRN PRN PRN Reason: Pain Score 6-10 Last Admin: 08/22/20 03:14 Dose: 4 mg Documented by: Morphine Sulfate (Morphine (Oral Solution) 10mg/0.5ml Syringe) 6 mg PO Q6H PRN PRN PRN Reason: PAIN 1-10 OR FEVER Last Admin: 08/20/20 23:33 Dose: 6 mg Documented by: Nitroglycerin (Nitroglycerin (Inpatient Use) 0.4 Mg Tab.Subl) 0.4 mg SL Q5M PRN PRN Reason: CARDIAC/CHEST PAIN Nutritional Formula (Nutritional Supplement (Blue) Packet) 1 packet PO BIDCM [facility] Last Admin: 08/22/20 09:51 Dose: 1 packet Documented by: Pancrelipase (Creon 24,[address] Capsule) 1 capsule PO BIDCM [facility] Last Admin: 08/22/20 09:52 Dose: 1 capsule Documented by: Pantoprazole Sodium (Pantoprazole Sodium 20 Mg Tablet) 20 mg PO DAILY [facility] Last Admin: 08/22/20 09:47 Dose: 20 mg Documented by: Polyethylene Glycol (Polyethylene Glycol 3350 17 Gm Packet) 17 gm PO DAILY [facility] Last Admin: 08/22/20 09:50 Dose: 17 gm Documented by: Pravastatin Sodium (Pravastatin 40 Mg Tablet) 40 mg PO QHS [facility] Last Admin: 08/21/20 21:45 Dose: 40 mg Documented by: Senna/Docusate Sodium (Senna/Docusate Sodium 1 Tablet) 2 tablet PO BID PRN PRN PRN Reason: Constipation Sodium Chloride (0.9% Saline Lock 10 Ml Syringe) 10 - 40 ml IV UD PRN PRN Reason: SALINE FLUSH Last Admin: 08/21/20 15:24 Dose: 10 ml Documented by: Tizanidine HCl (Tizanidine Hcl 2 Mg Tablet) 4 mg PO TID [facility] Last Admin: 08/22/20 06:18 Dose: 4 mg Documented by: Trazodone HCl (Trazodone 100 Mg Tablet) 100 mg PO QHS PRN PRN Reason: SLEEP Last Admin: 08/21/20 23:11 Dose: 100 mg Documented by: Venlafaxine HCl (Venlafaxine Hcl 100 Mg Tablet) 100 mg PO BID [facility] Last Admin: 08/22/20 09:50 Dose: 100 mg Documented by: Inpatient E&M: [id number] Disch Hosp
--- NOTE | 2020-08-22 14:07 | CHAPLAIN ---
Type of Pastoral Visit _x__ Initial Visit ___ Follow-up Visit ___ On-call Visit ___ General Patient Visit ___ Spiritual Assessment ___ Family Conference ___ Bereavement ___ Rapid Response ___ Code Blue ___ Other (describe below) Pastoral Care Referral From _x__ Patient ___ Family ___ Nurse ___ Physician ___ Checkering Machine Operator ___ Tile Mechanic Helper ___ Other (describe below) Sacrament/Intervention _x__ Active listening ___ Anointing ___ Christian ___ Bereavement ___ Communion ___ Sharron exploration ___ _x__ Life review _x__ Prayer ___ Reconciliation ___ Sacrament of Sick _x__ Supportive presence ___ Wedding ___ Other (describe below) Pastoral Comments patient and this baking assistant have met in previous admission; pt gives life and family update; pt admits to disappointment that foot is not healing but willing to go to TCU for recovery
[2020-08-22] MEDS: Insulin Lispro 100 UNIT/ML INSULN.PEN SC (15:15)
[2020-08-22] MEDS: Menthol/Lanolin/Calamine/Znox 113 GM Tube 1 APPLIC TOPICAL (15:17)
[2020-08-22 16:16] LABS: Bedside Glucose 102 mg/dL (70-110)
[2020-08-22 16:48] VITALS: BP 154/66; PULSE 79; RESP 16; TEMP 36.8; O2SAT 98
== END 2020-08-22 17:20 | disposition skilled nursing facility (03) | DRG 622 ==
LOC: ED 17:53 → MS3 18:52
PROVIDERS: Anesthesiology; Internal Medicine; Internal Medicine Infectious Disease; Nurse Practitioner Family; Podiatrist Foot & Ankle Surgery; Admitting Provider Internal Medicine; Emergency Provider Emergency Medicine; PCP Family Medicine; Visit Provider Internal Medicine
PROC: 0JBR0ZZ Excision of Left Foot Subcutaneous Tissue and Fascia, Open Approach (ICD-10-PCS; principal; 2020-08-19 12:20)
DX: E10.621 Type 1 diabetes mellitus with foot ulcer (principal); E43 Unspecified severe protein-calorie malnutrition; L03.116 Cellulitis of left lower limb; L02.612 Cutaneous abscess of left foot; L97.422 Non-pressure chronic ulcer of left heel and midfoot with fat layer exposed; L97.423 Non-pressure chronic ulcer of left heel and midfoot with necrosis of muscle; M14.672 Charcot's joint, left ankle and foot; E10.51 Type 1 diabetes mellitus with diabetic peripheral angiopathy without gangrene; E10.42 Type 1 diabetes mellitus with diabetic polyneuropathy; F32.9 Major depressive disorder, single episode, unspecified; E66.09 Other obesity due to excess calories; Z68.31 Body mass index [BMI] 31.0-31.9, adult; E55.9 Vitamin D deficiency, unspecified; Z86.73 Personal history of transient ischemic attack (TIA), and cerebral infarction without residual deficits; K21.9 Gastro-esophageal reflux disease without esophagitis; D50.9 Iron deficiency anemia, unspecified; E03.9 Hypothyroidism, unspecified; I25.10 Atherosclerotic heart disease of native coronary artery without angina pectoris; L97.522 Non-pressure chronic ulcer of other part of left foot with fat layer exposed; E78.5 Hyperlipidemia, unspecified; E10.22 Type 1 diabetes mellitus with diabetic chronic kidney disease; E10.622 Type 1 diabetes mellitus with other skin ulcer; I13.10 Hypertensive heart and chronic kidney disease without heart failure, with stage 1 through stage 4 chronic kidney disease, or unspecified chronic kidney disease; Z95.5 Presence of coronary angioplasty implant and graft; Z95.1 Presence of aortocoronary bypass graft; F41.9 Anxiety disorder, unspecified; B95.4 Other streptococcus as the cause of diseases classified elsewhere; B95.2 Enterococcus as the cause of diseases classified elsewhere; Z79.4 Long term (current) use of insulin; Z66 Do not resuscitate; Z79.02 Long term (current) use of antithrombotics/antiplatelets; Z79.82 Long term (current) use of aspirin; Z81.8 Family history of other mental and behavioral disorders; Z82.0 Family history of epilepsy and other diseases of the nervous system; Z82.3 Family history of stroke; Z82.49 Family history of ischemic heart disease and other diseases of the circulatory system; Z83.2 Family history of diseases of the blood and blood-forming organs and certain disorders involving the immune mechanism; Z83.3 Family history of diabetes mellitus; Z98.84 Bariatric surgery status; Z86.718 Personal history of other venous thrombosis and embolism; J30.9 Allergic rhinitis, unspecified; L84 Corns and callosities; N18.31 Chronic kidney disease, stage 3a; M1A.9XX0 Chronic gout, unspecified, without tophus (tophi); M54.5 Low back pain
CPT/HCPCS: 11042; 36415; 36569; 72114; 73630; 73718; 80048; 80053; 80202; 82962; 83036; 83605; 84100; 84134; 84439; 84443; 85025; 85027; 85610; 85652; 85730; 86140; 87040; 87070; 87075; 87077; 87149; 87186; 87205; 87426; 87640; 93005; 97110; 97162; 97166; 97530; 97535; 97802; 99285; J7030; J7040; J7050; A4216; J0295; J2405

== ENCOUNTER 2020-08-22 17:37 | Inpatient (IN) | payer MEDICARE, OTHER, SELFPAY ==
[2020-08-19 08:13] VITALS: BMI 29.0
[2020-08-22 17:50] VITALS: BP 165/63; PULSE 63; PULSE 76; RESP 16; TEMP 35.6; O2SAT 96; O2SAT 97; BMI 31.4
[2020-08-22] MEDS: tiZANidine HCl 2 MG Tablet 4 MG PO (20:29)
[2020-08-22] MEDS: Amox/Clavulanate 875 MG Tablet PO (20:30)
[2020-08-22] MEDS: MELATONIN 3 MG TABLET 6 MG PO (20:31)
[2020-08-22] MEDS: morphine (oral solution) 10MG/0.5ML Syringe 3 MG PO (20:32)
[2020-08-22] MEDS: Isosorbide Mononitrate 60 MG Tablet 120 MG PO (20:32)
[2020-08-22] MEDS: Pravastatin 40 MG Tablet PO (20:33)
[2020-08-22] MEDS: Menthol/Lanolin/Calamine/Znox 113 GM Tube 1 APPLIC TOPICAL (20:33)
[2020-08-22] MEDS: Levothyroxine 75 MCG Tablet PO (20:34)
--- NOTE | 2020-08-22 21:00 | NURSING ---
Pt distressed about pain medication regimen and antibiotic treatments she is currently on, arguing with DIRECTOR OF SPECIAL EVENTS. States that if her pain is not controlled she will leave. Also states she is here for IV antibiotic treatment and if this is not done there is no reason for her to be here. She is currently on PO Augmentin. This RN and DIRECTOR OF SPECIAL EVENTS both discussed options with pt that we can give her what pain medications are currently ordered and contact the Dr about any possible alterations. Pt then states that she has already contacted Dr. Espino personally about pain. Dr. Espino called floor and spoke with this RN, updated him on pt complaints. Discussed with Dr. Espino the need to request consults for him and Dr. Webb to follow up with pt since being transferred from [facility]. Dr. Rush called and updated on pt and having spoken to Dr. Espino and what orders he would like to place. Consults put in for Dr. Espino and Dr. Webb. Dr. Espino called back and updated, he also spoke with the pt again at this time for additional clarification. Dr. Espino then spoke with this RN again to state that pt has agreed to stay on PO Augmentin until Dr. Webb is able to see her and speak with pt about antibiotics. See new orders.
--- NOTE | 2020-08-22 21:26 | PCM.HP.STD ---
Problem List (1) Coronary artery disease Status: Chronic (2) Hypertension Status: Chronic (3) Stroke Status: Chronic (4) Diabetic infection of left foot Status: Acute (5) Debility Status: Acute (6) Diabetes mellitus type 2 in obese Status: Chronic (7) Depression Status: Chronic (8) Gout Status: Chronic (9) Vitamin D deficiency Status: Chronic (10) Peripheral arterial occlusive disease Status: Chronic (11) Charcot's joint of left foot Status: Chronic (12) Hyperlipidemia Status: Chronic Qualifiers: (13) Hypothyroidism Status: Chronic Qualifiers: (14) Iron deficiency anemia Status: Chronic Qualifiers: (15) GERD (gastroesophageal reflux disease) Status: Chronic History of Present Illness Date of Admission: 08/22/20 Chief Complaint: Here for rehabilitation, strengthening, prior to discharge home with . 08/17/2020 The patient is a 75 year old Female with below past medical history presented to [facility] Emergency Department with wound. 08/17/2020 X-ray lumbosacral spine showed degenerative changes of spine. 08/17/2020 EKG normal sinus rhythm, normal EKG. 08/17/2020 X-ray left foot severe mid foot arthritis. Wound center sent patient to ER for left foot infection. Blood cultures sent. Zosyn, Vancomycin given. 08/17/2020 Admit to Hospital. Vancomycin, Zosyn for left diabetic foot infection. Probiotic to prevent c. diff. 08/18/2020 MRI left midfoot showed cellulitis of left foot, negative osteomyelitis, negative abscess. 08/19/2020 Podiatry performed debridement left foot ulcer, drainage of left foot abscess. Cultures growing strep agalactiae, staph caprae, enterococcus, anaerobic cocci. Infectious Disease recommended Augmentin 875MG twice daily for 1 more week. 08/22/2020 Admit to TCU with debility, here for rehabilitation, strengthening, prior to discharge home with . Past Medical History Past Medical History (Chronic Problems): Chronic Problems (Last Reviewed 06/10/20 @ 21:[address] 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 Hatfield @ [facility]:(Promus Premier 4.0 X 12 mm L2 stent from distal left main into proximal LCX; Promus Premier RX 2.25 X 12 mm L1 stent in distal LCX) 12/03/2018:Triple vessel CAD of the LAD, LCX, RCA Successful PTCA/YASIR mid LCX with a 2.5 x 20 Promus Synergy stent; 85%-->0-%, no dissection. 12/24/18:FFR of RCA=0.97, negative, left for medical managemen History of coronary artery bypass graft (Chronic) CABG X 3 vessels [facility]:DANIEL to LAD, reverse SVG to dx and to 2nd OM per Dr. Borjas @ [facility] 09/09/2014 Atherosclerotic heart disease of [place] coronary artery without angina pectoris (Chronic) CABG X 3 vessels [facility]: DANIEL to LAD, reverse SVG to dx and to 2nd OM per Dr. Borjas @ [facility] 09/09/2014; PTCA/YASIR to Left main, LAD, and OM1 per Dr. Hatfield 12/21/2014; Carotid artery disease (Chronic) Peripheral vascular disease (Chronic) Hyperlipidemia (Chronic) Hypothyroidism (Chronic) Iron deficiency anemia (Chronic) GERD (gastroesophageal reflux disease) (Chronic) Medical History: Medical History (Last Reviewed 06/10/20 @ 21:[address] 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 Borjas @ [facility] 09/09/2014; PTCA/YASIR to Left main, LAD, and OM1 per Dr. Hatfield 12/21/2014; Carotid artery disease (Chronic) I77.9 Peripheral vascular disease (Chronic) I73.9 Hyperlipidemia (Chronic) E78.5 Hypothyroidism (Chronic) E03.9 Iron deficiency anemia (Chronic) D50.9 GERD (gastroesophageal reflux disease) (Chronic) K21.9 Carpal tunnel syndrome G56.00 Essential hypertension I10 Gout M10.9 History of blood clots Z86.718 History of blood transfusion Z92.89 IBS (irritable bowel syndrome) K58.9 Neuropathy G62.9 Osteoporosis M81.0 Allergies doxycycline Allergy (Severe, Verified 08/17/20 15:19) all over body hives and itching atorvastatin calcium [From Lipitor] Allergy (Verified 08/17/20 15:19) Unknown bupropion HCl [From Wellbutrin] Allergy (Verified 08/17/20 15:19) Unknown mannitol [From Reclast] Allergy (Verified 08/17/20 15:19) joint pain, unable to breathe, unable to walk propoxyphene napsylate [From Darvocet-N 100] Allergy (Verified 08/17/20 15:19) Unknown Quinolones Allergy (Verified 08/17/20 15:19) Unknown Tetanus Vaccines and Toxoid [Tetanus Vaccines & Toxoid] Allergy (Verified 08/17/20 15:19) Chest tightness tizanidine Allergy (Verified 08/17/20 15:19) Unknown zoledronic acid [From Reclast] Allergy (Verified 08/17/20 15:19) joint pain,unable to breathe, unaable to walk JOINT PAIN,UNABLE TO BREATHE,UNABLE TO WALK pravastatin Adverse Reaction (Severe, Verified 08/17/20 15:19) Myalgias gemfibrozil Adverse Reaction (Intermediate, Verified 08/17/20 15:19) Unknown NSAIDS (Non-Steroidal Anti-Inflamma Adverse Reaction (Verified 08/17/20 15:19) Other Home Medications: Ambulatory Orders Medication Instructions Recorded Pravastatin Sodium 40 mg PO QHS 03/10/17 amlodipine 5 mg tablet 5 mg PO DAILY tab 05/05/18 Esomeprazole Magnesium 20 mg PO DAILY 09/21/19 clopidogrel 75 mg tablet 75 mg PO DAILY #90 tab 11/23/19 Allopurinol 100 mg PO DAILY 03/17/20 Calcium Citrate 200 mg PO BID #0 03/17/20 aspirin 81 mg tablet,delayed 81 mg PO DAILY 04/05/20 release cbd 1 dose PO 4X/DAY PRN 04/05/20 [id number] 1 cap PO BID cap 04/05/20 24,000-76,000-120,000 unit capsule,delayed rel Menthol/Lanolin/Calamine/Znox 1 applic TOPICAL TID 04/19/20 [Calmoseptine Ointment] Acetaminophen [Tylenol] 1,000 mg PO Q6H PRN PRN tab 04/25/20 Nitroglycerin (INPATIENT USE) 0.4 mg SUBLINGUAL Q5M PRN tab.subl 04/25/20 [Nitrostat] Carvedilol 25 mg PO BID 08/17/20 Isosorbide Mononitrate [Isosorbide 60 mg PO DAILY 08/17/20 Mononitrate ER] Isosorbide Mononitrate [Isosorbide 120 mg PO DAILY 08/17/20 Mononitrate ER] Levothyroxine Sodium 75 mcg PO QHS 08/17/20 Linaclotide [Linzess] 72 mcg PO DAILY 08/17/20 Lisinopril 10 mg PO DAILY 08/17/20 Melatonin 6 mg PO QHS 08/17/20 Metoclopramide HCl 10 mg PO Q8H PRN 08/17/20 Morphine Sulfate 3 ml PO Q6H PRN PRN 08/17/20 Multivitamin/Iron/Folic Acid [Cvs 0.5 tablet PO BID 08/17/20 Spectravite Ultra Women Tb] Nutritional Supplement [Blue - 1 packet PO BIDCM 08/17/20 [facility]] Tizanidine HCl 4 mg PO Q8H PRN 08/17/20 Trazodone HCl 100 mg PO QHS PRN 08/17/20 Tryptophan [l-Tryptophan] 500 mg PO DINNER 08/17/20 Venlafaxine HCl 100 mg PO BID 08/17/20 Wheat Dextrin [Benefiber] 15 ml PO DAILY 08/17/20 Amox/Clavulanate Tablet [Augmentin 875 mg PO BID 08/22/20 Tablet] Insulin Glargine [Lantus SoloStar 30 units SC BID 08/22/20 Pen] Insulin Lispro [Humalog KwikPen] 10 unit SC TIDCM 08/22/20 Insulin Lispro [Humalog KwikPen] See Protocol SC ACHS 08/22/20 Lidocaine [Lidoderm Patch] 2 patch TOPICAL DAILY 08/22/20 Surgical History: Surgical History (Last Reviewed 06/10/20 @ 21:[address] Judson Massey MD) Stented coronary artery (Chronic) Onset Date: 12/03/18 Z95.5 PTCA and YASIR to proximal and distal CX per Dr. Hatfield @ [facility]:(Promus Premier 4.0 X 12 mm L2 stent from distal left main into proximal LCX; Promus Premier RX 2.25 X 12 mm L1 stent in distal LCX) 12/03/2018:Triple vessel CAD of the LAD, LCX, RCA Successful PTCA/YASIR mid LCX with a 2.5 x 20 Promus Synergy stent; 85%-->0-%, no dissection. 12/24/18:FFR of RCA=0.97, negative, left for medical managemen History of coronary artery bypass graft (Chronic) Z95.1 CABG X 3 vessels [facility]:DANIEL to LAD, reverse SVG to dx and to 2nd OM per Dr. Borjas @ [facility] 09/09/2014 History of gastric bypass Z98.84 History of ventral hernia repair Z98.890, Z87.19 History of excision of lesion Z98.890, Z87.2 Surgical preparation supraumbilical area in previous scar with excision nonhealing ulcer and 16 cm complex secondary wound closure - 03/07/20 History of gastric bypass (Inactive) Z98.84 History of left heart catheterization (Inactive) Z98.890 CABG X 3 vessels [facility]:DANIEL to LAD, reverse SVG to dx and to 2nd OM per Dr. Borjas @ [facility] 09/09/2014; PTCA andDES to proximal and distal CX per Dr. 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 Judson Massey MD) Mother Cancer CVA (cerebral vascular accident) CAD (coronary artery disease) Father CAD (coronary artery disease) History of coronary artery bypass graft Sister CAD (coronary artery disease) Multiple sclerosis Other Anxiety Bleeding disorder Depression Diabetes Heart disease High cholesterol Hypertension History Items: No pertinent history Maternal Family History: Family History (Last Reviewed 06/10/20 @ 21:[address] Judson Massey MD) Mother Cancer CVA (cerebral vascular accident) CAD (coronary artery disease) Father CAD (coronary artery disease) History of coronary artery bypass graft Sister CAD (coronary artery disease) Multiple sclerosis Other Anxiety Bleeding disorder Depression Diabetes Heart disease High cholesterol Hypertension History Items: No pertinent history Review of Systems Constitutional: Denies: Chills, Fever, Weight Change HEENT: Denies: Head Aches, Sinus Congestion, Sinus Drainage Cardiovascular: Denies: Chest Pain, Palpitations Respiratory: Denies: Cough, Shortness of breath at rest, Sputum production Gastrointestinal: Denies: Abdominal Pain, Nausea, Vomiting Genitourinary: Denies: Dysuria Musculoskeletal: Denies: Joint Pain, Joint Tenderness Skin: Denies: Rash, Wounds Neurological: Denies: Numbness, Tingling, Focal weakness Psychiatric: Denies: Anxiety, Depression, Homicidal Ideations, Suicidal Ideations Hematologic/ Lymphatic: Denies: Easy Bruising, Easy Bleeding VTE Information - Inpt Only VTE Present on Admission: No VTE Mechan Device Prophylaxis: Knee High MINDY Hose VTE Pharm Prophylaxis ordered?: No Reason prophylaxis not ordered:: Treatment Not Indicated Patient Problems: Active and Suspected Problems (Last Reviewed 06/10/20 @ 21:[address] Judson Massey MD) Diabetic infection of left foot (Acute) Debility (Acute) - Physical Exam Vitals/I&O's: Vital Signs Temp Pulse Resp BP Pulse Ox 96.0 F L 76 16 165/63 H 97 08/22/20 17:50 08/22/20 17:50 08/22/20 17:50 08/22/20 17:50 08/22/20 17:50 Oxygen Delivery Method Room Air Weight: 83.007 kg Body Mass Index (BMI) 31.4 Finger Stick Blood Glucose 193 General: Alert, Oriented x3, Cooperative HEENT: Atraumatic, PERRLA, EOMI, Normocephalic Neck: Supple, No JVD, Negative Carotid Bruits Lungs: Clear to auscultation, Normal air movement Cardiovascular: Regular rate, No murmurs Abdomen: Bowel Sounds Present, Soft, Non Tender Extremities: No edema, Capillary Refill Less than 3 Seconds, - - Left lower extremity dressed. Skin: No rashes, No breakdown Musculoskeletal: No Tenderness to Palpation of Joints or Extremities Neurological: Cranial nerves II-XII grossly intact Psych/Mental Status: Normal Affect, Appropriate Current Medications Acetaminophen (Acetaminophen 500 Mg Tablet) 1,000 mg PO Q6H PRN PRN PRN Reason: Pain Score 1-3 Allopurinol (Allopurinol 100 Mg Tablet) 100 mg PO DAILY [facility] Amlodipine Besylate (Amlodipine 5 Mg Tablet) 5 mg PO DAILY [facility] Amoxicillin/Clavulanate Potassium (Amox/Clavulanate 875 Mg Tablet) 875 mg PO BID [facility] Last Admin: 08/22/20 20:30 Dose: 875 mg Documented by: Aspirin (Aspirin E.C. 81 Mg Tablet) 81 mg PO DAILY [facility] Bisacodyl (Bisacodyl 10 Mg Suppository) 10 mg RC DAILY PRN PRN Reason: Constipation Calamine/Phenol (Menthol/Lanolin/Calamine/Znox 113 Gm Tube) 1 applic TOPICAL TID [facility]; Protocol Last Admin: 08/22/20 20:33 Dose: 1 applic Documented by: Carvedilol (Carvedilol 25 Mg Tablet) 25 mg PO BID [facility] Clopidogrel Bisulfate (Clopidogrel Bisulfate 75 Mg Tablet) 75 mg PO DAILY [facility] Insulin Glargine (Insulin Glargine 100 Units/Ml Pen) 30 units SC BID [facility] Last Admin: 08/22/20 20:53 Dose: Not Given Documented by: Insulin Human Lispro (Insulin Lispro 100 Unit/Ml Insuln.Pen) 0 unit SC [facility]; Protocol Insulin Human Lispro (Insulin Lispro 100 Unit/Ml Insuln.Pen) 10 unit SC TIDCM [facility] Isosorbide Mononitrate (Isosorbide Mononitrate 60 Mg Tablet) 60 mg PO DAILY [facility] Isosorbide Mononitrate (Isosorbide Mononitrate 60 Mg Tablet) 120 mg PO 1800 [facility] Last Admin: 08/22/20 20:32 Dose: 120 mg Documented by: Levothyroxine Sodium (Levothyroxine 75 Mcg Tablet) 75 mcg PO QHS [facility] Last Admin: 08/22/20 20:34 Dose: 75 mcg Documented by: Lidocaine (Lidocaine 5% Patch) 2 patch TOPICAL DAILY [facility]; Protocol Linaclotide (Linaclotide 72 Mcg Capsule) 72 mcg PO DAILY [facility] Lisinopril (Lisinopril 10 Mg Tablet) 10 mg PO DAILY [facility] Melatonin (Melatonin 3 Mg Tablet) 6 mg PO QHS [facility] Last Admin: 08/22/20 20:31 Dose: 6 mg Documented by: Metoclopramide HCl (Metoclopramide 10 Mg Tablet) 10 mg PO Q8H PRN PRN PRN Reason: NAUSEA Morphine Sulfate (Morphine (Oral Solution) 10mg/0.5ml Syringe) 3 mg PO Q6H PRN PRN PRN Reason: Pain Score 1-10 Last Admin: 08/22/20 20:32 Dose: 3 mg Documented by: Nitroglycerin (Nitroglycerin (Inpatient Use) 0.4 Mg Tab.Subl) 0.4 mg SL Q5M PRN PRN Reason: CARDIAC/CHEST PAIN Nutritional Formula (Nutritional Supplement (Blue) Packet) 1 packet PO BIDCM [facility] Pancrelipase (Creon 24,[address] Capsule) 1 capsule PO BIDCM [facility] Pantoprazole Sodium (Pantoprazole Sodium 20 Mg Tablet) 20 mg PO DAILY [facility] Pravastatin Sodium (Pravastatin 40 Mg Tablet) 40 mg PO QHS [facility] Last Admin: 08/22/20 20:33 Dose: 40 mg Documented by: Sodium Chloride (0.9% Saline Lock 10 Ml Syringe) 10 - 40 ml IV UD PRN PRN Reason: SALINE FLUSH Tizanidine HCl (Tizanidine Hcl 2 Mg Tablet) 4 mg PO Q8H PRN PRN PRN Reason: BACK PAIN Last Admin: 08/22/20 20:29 Dose: 4 mg Documented by: Trazodone HCl (Trazodone 100 Mg Tablet) 100 mg PO QHS PRN PRN Reason: SLEEP Tuberculin PPD (Tuberculin,Purif.Prot.Deriv. 50 Tu/Ml Vial) 5 tu ID [id number] Stop: 08/23/20 10:01 Tuberculin PPD (Tuberculin,Purif.Prot.Deriv. 50 Tu/Ml Vial) 5 tu ID [id number] ONE Stop: 08/30/20 10:01 Venlafaxine HCl (Venlafaxine Hcl 100 Mg Tablet) 100 mg PO BID [facility] Assessment/Plan All Active Problems (Last Reviewed 06/10/20 @ 21:[address] Judson Massey MD) Diabetic infection of left foot (Acute) Abscess of left foot (Acute) Debility (Acute) Decubitus ulcer of sacral region, stage 2 (Resolved) 75 year old female with below past medical history hospitalized for left foot cellulitis, left foot ulcer, underwent debridement 08/19/2020, admitted to TCU with debility, here for rehabilitation, strengthening, wound care, prior to discharge home with . Debility - PT/OT. Pain - Tylenol 1000MG Q6H PRN pain (1-3), Morphine 2MG IV Q3H PRN pain (6-10), Lidoderm patch 2 patch topical daily. Bowel - Miralax 17GM daily, Senna/colace 1 tablet BID, MOM 30ML daily PRN, Dulcolax 10MG daily PRN. Adult immunization - Administer Prevnar 13, Pneumovax 23, Fluzone, COVID19 vaccine as appropriate. DVT prophylaxis - Hold, on dual antiplatelet therapy. Gout - Allopurinol 100MG daily. Hypertension - Coreg 25MG BID, Lisinopril 10MG daily, Amlodipine 5MG daily. Cellulitis left foot - Augmentin 875MG BID thru 08/29/2020, consult Dr. Webb. Left foot ulcer - Consult Dr. Espino. Coronary Artery Disease - Coreg 25MG BID, Lisinopril 10MG daily, Imdur 60MG, 120MG, Plavix 75MG daily, Aspirin 81MG daily, NTG 0.4MG SL Q5M PRN. Diabetes Mellitus II - Lantus 30 units BID, Humalog 10 units TIDCM. Hypothyroidism - Levothyroxine 75MCG QHS. Pancreatic insufficiency - Creon 1 capsule BIDCM. Insomnia - Melatonin 6MG QHS. Skin irritation - Calmoseptine topical TID. Nausea - Reglan 10MG Q8H PRN. Nutrition - Blue 1 packet BID. GERD - Pantoprazole 20MG daily. Hyperlipidemia - Pravastatin 40MG QHS. Muscle spasm - Tizanidine 4MG Q8H PRN. Insomnia - Trazodone 100MG QHS PRN. Depression - Venlafaxine 100MG BID, stable chronic intermediate designer use, GDR not recommended.
[2020-08-22 21:36] LABS: Bedside Glucose 86 mg/dL (70-110)
[2020-08-22 21:36] LABS: Bedside Glucose 131 mg/dL (70-110)
[2020-08-22] MEDS: traZODone 100 MG Tablet PO (22:48)
[2020-08-23] MEDS: 0.9% Saline Lock 10 ML Syringe IV ×3 (01:55→22:02)
[2020-08-23] MEDS: Morphine 2 MG/ML Syringe IV ×2 (01:56→13:34)
--- NOTE | 2020-08-23 03:01 | NURSING ---
Pt non compliant to NWB to left foot, and is self ambulating to BSC without walker. PT has previous hx of falling at home. teaching about calling out for help ambulating given. Pt refused this nurse using hospital lancets, prefers own to be used.
[2020-08-23 05:22] VITALS: BP 124/55; PULSE 52; RESP 18; TEMP 36.6; O2SAT 95
[2020-08-23] MEDS: Aspirin E.C. 81 MG Tablet PO (05:23)
[2020-08-23] MEDS: Allopurinol 100 MG Tablet PO (05:23)
[2020-08-23] MEDS: Polyethylene Glycol 3350 17 GM PACKET PO (05:23)
[2020-08-23] MEDS: Senna/Docusate Sodium 1 Tablet PO ×2 (05:23→17:51)
[2020-08-23] MEDS: Lisinopril 10 MG Tablet PO (05:23)
[2020-08-23] MEDS: Clopidogrel Bisulfate 75 MG Tablet PO (05:23)
[2020-08-23] MEDS: Menthol/Lanolin/Calamine/Znox 113 GM Tube 1 APPLIC TOPICAL ×2 (05:24→22:02)
[2020-08-23] MEDS: Carvedilol 25 MG Tablet PO ×2 (05:24→17:51)
[2020-08-23] MEDS: amLODIPine 5 MG Tablet PO (05:24)
[2020-08-23] MEDS: Amox/Clavulanate 875 MG Tablet PO (05:24)
[2020-08-23] MEDS: Isosorbide Mononitrate 60 MG Tablet PO (05:24)
[2020-08-23] MEDS: Pantoprazole Sodium 20 MG Tablet PO (05:24)
[2020-08-23 05:53] LABS: Absolute Lymphocyte Count 2.38 X10^3/uL (0.83-4.51); Absolute Neutrophil Count 4.2 X10^3/uL (2.0-7.7); Basophil# 0.03 X10^3/uL; Basophil% 0.4 % (0-1); Eosinophil# 0.23 X10^3/uL; Eosinophils% 3.1 % (0-5); Hematocrit 33.2 % (37-47); Lymphocyte # 2.38 X10^3/ul (4.0); Lymphocyte % 32.1 % (19-41); Mean Corp Hgb Conc 33.1 g/dL (32-36); Mean Corpuscular Hgb 29.5 pg (27.0-32.0); Mean Platelet Vol. 9.4 fl (6.2-12.0); Monocyte# 0.53 X10^3/uL; Monocyte% 7.2 % (0-10); NRBC Flagged by Analyzer 0 % (0-5); Neutrophil # 4.22 X10^3/uL (2.7-7.7); Neutrophil % 56.9 % (47-70); Platelet Count 195 K/mm3 (150-450); RBC Distribution Width CV 14.4 % (11.6-14.6); RBC Distribution Width SD 46.4 fl (35.1-43.9); Red Blood Count 3.73 M/mm3 (4.2-5.4); White Blood Count 7.4 K/mm3 (4.4-11.0)
[2020-08-23 06:16] LABS: Bedside Glucose 90 mg/dL (70-110)
[2020-08-23 06:20] LABS: Anion Gap 5 (5-15); BUN 26 mg/dL (7-18); BUN/Creat Ratio 26.7 RATIO (10-20); Calcium,Total 8.6 mg/dL (8.5-10.1); Chloride 114 mmol/L (98-107); Creatinine, Serum 0.97 mg/dL (0.55-1.02); EST Glomerular Filtration Rate 60 mL/min (>60); Est Glom Filt Rate - Afr Amer 72 mL/min (>60); Glucose 86 mg/dL (74-106); Sodium Level 143 mmol/L (136-145)
[2020-08-23] MEDS: Lidocaine 5% Patch 2 PATCH TOPICAL (08:20)
[2020-08-23] MEDS: Insulin Lispro 100 UNIT/ML INSULN.PEN 10 UNIT SC ×2 (08:21→13:13)
[2020-08-23] MEDS: Creon 24,000 unit DR Capsule 1 CAP PO ×2 (08:22→17:47)
[2020-08-23] MEDS: Tuberculin,Purif.prot.deriv. 50 TU/ML Vial 5 ML ID (09:56)
[2020-08-23] MEDS: Acetaminophen 500 MG Tablet 1000 MG PO (10:04)
[2020-08-23] MEDS: tiZANidine HCl 2 MG Tablet 4 MG PO ×2 (10:04→20:31)
--- NOTE | 2020-08-23 10:06 | NURSING ---
KENYETTA,RN/WOUND NURSE IN TO CHANGE PT DRESSING TO FOOT AND IN ALSO TO SEE PT.
--- NOTE | 2020-08-23 10:08 | PCM.PN.ID ---
Patient Problems: Active and Suspected Problems (Last Reviewed 06/10/20 @ 21:[address] Judson Massey MD) Diabetic infection of left foot (Acute) Debility (Acute) Subjective: Feeling ok, no fever, no n/v/d - Physical Exam Vitals/I&O's: Vital Signs Temp Pulse Resp BP Pulse Ox 97.8 F 52 L 18 124/55 H 95 08/23/20 05:22 08/23/20 05:22 08/23/20 05:22 08/23/20 05:22 08/23/20 05:22 Oxygen Delivery Method Room Air Weight: 83.007 kg Body Mass Index (BMI) 31.4 Finger Stick Blood Glucose 193 General: Alert, Cooperative, No apparent distress Lungs: Clear to auscultation, Normal air movement Cardiovascular: Regular rate, Regular Rhythm Abdomen: Soft, Non Tender, Non-Distended Skin: Ulcer/ Wound - foot less red, no drainage Laboratory Results 08/22/20 19:36: POC Glucose 86 08/22/20 21:30: POC Glucose 131 H 08/23/20 05:10: WBC 7.4, RBC 3.73 L, Hgb 11.0 L, Hct 33.2 L, MCV 89.0, MCH 29.5, MCHC 33.1, RDW Std Deviation 46.4 H, RDW Coeff of Marco 14.4, Plt Count 195, MPV 9.4, Immature Gran % (Auto) 0.300, Neut % (Auto) 56.9, Lymph % (Auto) 32.1, [place] % (Auto) 7.2, Eos % (Auto) 3.1, Baso % (Auto) 0.4, Absolute Neuts (auto) 4.2, Absolute Lymphs (auto) 2.38, Nucleated RBC % 0 08/23/20 05:10: Sodium 143, Potassium 4.0, Chloride 114 H, Carbon Dioxide 24.0, Anion Gap 5, BUN 26 H, Creatinine 0.97, Estim Creat Clear Calc 44.60, Est GFR (MDRD) Af Amer 72, Est GFR (MDRD) Non-Af 60, BUN/Creatinine Ratio 26.7 H, Glucose 86, Calcium 8.6 08/23/20 06:07: POC Glucose 90 Current Medications Acetaminophen (Acetaminophen 500 Mg Tablet) 1,000 mg PO Q6H PRN PRN PRN Reason: Pain Score 1-3 Last Admin: 08/23/20 10:04 Dose: 1,000 mg Documented by: Allopurinol (Allopurinol 100 Mg Tablet) 100 mg PO DAILY [facility] [place] Last Admin: 08/23/20 05:23 Dose: 100 mg Documented by: Amlodipine Besylate (Amlodipine 5 Mg Tablet) 5 mg PO DAILY [facility] [place] Last Admin: 08/23/20 05:24 Dose: 5 mg Documented by: Aspirin (Aspirin E.C. 81 Mg Tablet) 81 mg PO DAILY [facility] [place] Last Admin: 08/23/20 05:23 Dose: 81 mg Documented by: Bisacodyl (Bisacodyl 10 Mg Suppository) 10 mg RC DAILY PRN PRN Reason: Constipation Calamine/Phenol (Menthol/Lanolin/Calamine/Znox 113 Gm Tube) 1 applic TOPICAL TID [facility] [place]; Protocol Last Admin: 08/23/20 05:24 Dose: 1 applic Documented by: Carvedilol (Carvedilol 25 Mg Tablet) 25 mg PO BID [facility] [place] Last Admin: 08/23/20 05:24 Dose: 25 mg Documented by: Clopidogrel Bisulfate (Clopidogrel Bisulfate 75 Mg Tablet) 75 mg PO DAILY [facility] [place] Last Admin: 08/23/20 05:23 Dose: 75 mg Documented by: Heparin Sodium (Beef Lung) (Heparin Pf Lock 10 Units/Ml 50 Units/5 Ml Syringe) 50 units IV UD PRN PRN Reason: PICC Line Heparin Flush Ampicillin Sodium/Sulbactam (Sodium 3 gm/ Sodium Chloride) 112 mls @ 150 mls/hr IV Q8 [facility] [place] Stop: 08/29/20 08:00 Insulin Glargine (Insulin Glargine 100 Units/Ml Pen) 30 units SC BID [facility] [place] Last Admin: 08/23/20 06:08 Dose: Not Given Documented by: Insulin Human Lispro (Insulin Lispro 100 Unit/Ml Insuln.Pen) 10 unit SC TIDCM [facility] [place] Last Admin: 08/23/20 08:21 Dose: 10 u Documented by: Isosorbide Mononitrate (Isosorbide Mononitrate 60 Mg Tablet) 60 mg PO DAILY [facility] [place] Last Admin: 08/23/20 05:24 Dose: 60 mg Documented by: Isosorbide Mononitrate (Isosorbide Mononitrate 60 Mg Tablet) 120 mg PO 1800 [facility] [place] Last Admin: 08/22/20 20:32 Dose: 120 mg Documented by: Levothyroxine Sodium (Levothyroxine 75 Mcg Tablet) 75 mcg PO QHS [facility] [place] Last Admin: 08/22/20 20:34 Dose: 75 mcg Documented by: Lidocaine (Lidocaine 5% Patch) 2 patch TOPICAL DAILY [facility] [place]; Protocol Last Admin: 08/23/20 08:20 Dose: 2 patch Documented by: Lisinopril (Lisinopril 10 Mg Tablet) 10 mg PO DAILY [facility] [place] Last Admin: 08/23/20 05:23 Dose: 10 mg Documented by: Magnesium Hydroxide (Magnesium Hydroxide 30 Ml Udc) 30 ml PO DAILY PRN PRN Reason: Constipation Melatonin (Melatonin 3 Mg Tablet) 6 mg PO QHS [facility] [place] Last Admin: 08/22/20 20:31 Dose: 6 mg Documented by: Metoclopramide HCl (Metoclopramide 10 Mg Tablet) 10 mg PO Q8H PRN PRN PRN Reason: NAUSEA Morphine Sulfate (Morphine 2 Mg/Ml Syringe) 2 mg IV Q3H PRN PRN PRN Reason: Pain Score 6-10 Last Admin: 08/23/20 01:56 Dose: 2 mg Documented by: Nitroglycerin (Nitroglycerin (Inpatient Use) 0.4 Mg Tab.Subl) 0.4 mg SL Q5M PRN PRN Reason: CARDIAC/CHEST PAIN Pancrelipase (Creon 24,[address] Capsule) [facility] Last Admin: 08/23/20 08:22 Dose: 1 capsule Documented by: Pantoprazole Sodium (Pantoprazole Sodium 20 Mg Tablet) 20 mg PO DAILY [facility] [place] Last Admin: 08/23/20 05:24 Dose: 20 mg Documented by: Polyethylene Glycol (Polyethylene Glycol 3350 17 Gm Packet) 17 gm PO DAILY [facility] [place] Last Admin: 08/23/20 05:23 Dose: 17 gm Documented by: Pravastatin Sodium (Pravastatin 40 Mg Tablet) 40 mg PO QHS [facility] [place] Last Admin: 08/22/20 20:33 Dose: 40 mg Documented by: Senna/Docusate Sodium (Senna/Docusate Sodium 1 Tablet) 1 tablet PO BID [facility] [place] Last Admin: 08/23/20 05:23 Dose: 1 tablet Documented by: Sodium Chloride (0.9% Saline Lock 10 Ml Syringe) 10 - 40 ml IV UD PRN PRN Reason: SALINE FLUSH Last Admin: 08/23/20 01:55 Dose: 10 ml Documented by: Sodium Chloride (0.9% Saline Lock 10 Ml Syringe) 10 - 40 ml IV UD PRN PRN Reason: Open End PICC Flush Sodium Chloride (0.9 % Nacl (Sterile) Posiflush 10 Ml) 10 - 40 ml IV UD PRN PRN Reason: Port access or dressing change Tizanidine HCl (Tizanidine Hcl 2 Mg Tablet) 4 mg PO Q8H PRN PRN PRN Reason: BACK PAIN Last Admin: 08/23/20 10:04 Dose: 4 mg Documented by: Trazodone HCl (Trazodone 100 Mg Tablet) 100 mg PO QHS PRN PRN Reason: SLEEP Last Admin: 08/22/20 22:48 Dose: 100 mg Documented by: Tuberculin PPD (Tuberculin,Purif.Prot.Deriv. 50 Tu/Ml Vial) 5 tu ID [id number] Stop: 08/30/20 10:01 Venlafaxine HCl (Venlafaxine Hcl 100 Mg Tablet) 100 mg PO BID [facility] Last Admin: 08/23/20 05:24 Dose: 100 mg Documented by: Medical Necessity - Tobacco Use Smoking Status: Never smoker Tobacco Use: Non-smoker Route of nutrition/ use of supplements: [] Nutritional Intake: [] IV Site: [] [place] Catheter: [] - Assessment/Plan Antibiotics: [] Assessment/Plan: [] Active and Suspected Problems (Last Reviewed 06/10/20 @ 21:[address] Judson Massey MD) Diabetic infection of left foot (Acute) Debility (Acute) DM L foot abscess and cellulitis - wound cx with GBS, CoNS, e. faecalis, anaerobe. MRSA pcr neg. / bcx with CoNS, likely contaminant. OR 08/19 for I&D of abscess. MRI showed no osteo. Trouble tolerating augmentin, so will change to unasyn, stop date 08/29/20. Will follow as needed
--- NOTE | 2020-08-23 10:31 | NURSING ---
wound photo: left foot
[2020-08-23 10:50] LABS: Bedside Glucose 132 mg/dL (70-110)
[2020-08-23 14:16] VITALS: BP 149/72; PULSE 59; RESP 16; TEMP 36.4; O2SAT 97
--- NOTE | 2020-08-23 15:30 | PHA.CONS_ITS ---
<Lillian Jerez - Last Filed: 08/23/20 15:30> Progress Note - Pharmacy Subjective: TCU Admission Objective: Allergies doxycycline Allergy (Severe, Verified 08/17/20 15:19) all over body hives and itching atorvastatin calcium [From Lipitor] Allergy (Verified 08/17/20 15:19) Unknown bupropion HCl [From Wellbutrin] Allergy (Verified 08/17/20 15:19) Unknown mannitol [From Reclast] Allergy (Verified 08/17/20 15:19) joint pain, unable to breathe, unable to walk propoxyphene napsylate [From Darvocet-N 100] Allergy (Verified 08/17/20 15:19) Unknown Quinolones Allergy (Verified 08/17/20 15:19) Unknown Tetanus Vaccines and Toxoid [Tetanus Vaccines & Toxoid] Allergy (Verified 08/17/20 15:19) Chest tightness tizanidine Allergy (Verified 08/17/20 15:19) Unknown zoledronic acid [From Reclast] Allergy (Verified 08/17/20 15:19) joint pain,unable to breathe, unaable to walk JOINT PAIN,UNABLE TO BREATHE,UNABLE TO WALK pravastatin Adverse Reaction (Severe, Verified 08/17/20 15:19) Myalgias gemfibrozil Adverse Reaction (Intermediate, Verified 08/17/20 15:19) Unknown NSAIDS (Non-Steroidal Anti-Inflamma Adverse Reaction (Verified 08/17/20 15:19) Other Current Medications Generic Name Dose Route Start Last Admin Trade Name Freq PRN Reason Stop Dose Admin Acetaminophen 1,000 mg 08/22/20 18:11 08/23/20 10:04 Acetaminophen 500 Mg Tablet PO 1,000 mg Q6H PRN PRN Administration Pain Score 1-3 Allopurinol 100 mg 08/23/20 06:00 08/23/20 05:23 Allopurinol 100 Mg Tablet PO 100 mg DAILY SHAHBAZ Administration Amlodipine Besylate 5 mg 08/23/20 06:00 08/23/20 05:24 Amlodipine 5 Mg Tablet PO 5 mg DAILY SH[facility] Administration Aspirin 81 mg 08/23/20 06:00 08/23/20 05:23 Aspirin E.C. 81 Mg Tablet PO 81 mg DAILY SHAH[facility]Z Administration Bisacodyl 10 mg 08/22/20 18:22 Bisacodyl 10 Mg Suppository RC DAILY PRN Constipation Calamine/Phenol 1 applic 08/22/20 22:00 08/23/20 13:29 Menthol/Lanolin/Calamine/Znox 113 Gm Tube TOPICAL Not Given TID [facility] Protocol Carvedilol 25 mg 08/23/20 06:00 08/23/20 05:24 Carvedilol 25 Mg Tablet PO 25 mg BID [facility]Z Administration Clopidogrel Bisulfate 75 mg 08/23/20 06:00 08/23/20 05:23 Clopidogrel Bisulfate 75 Mg Tablet PO 75 mg DAILY SHAH[facility]Z Administration Heparin Sodium (Beef Lung) 50 units 08/22/20 21:34 Heparin Pf Lock 10 Units/Ml 50 Units/5 Ml Syringe IV UD PRN PICC Line Heparin Flush Ampicillin Sodium/Sulbactam 112 mls @ 150 mls/hr 08/23/20 14:00 08/23/20 13:34 Sodium 3 gm/ Sodium Chloride IV 08/29/20 08:00 150 mls/hr Q8 [facility] Administration Sodium Chloride 250 mls @ 15 mls/hr 08/23/20 13:26 08/23/20 13:36 IV 15 mls/hr .[id number] PRN Administration Saline Flush Sodium Chloride 250 mls @ 15 mls/hr 08/23/20 13:26 IV .[id number] PRN Additional IVPB Infusion Insulin Glargine 30 units 08/22/20 19:00 08/23/20 06:08 Insulin Glargine 100 Units/Ml Pen SC Not Given BID [facility] Insulin Human Lispro 10 unit 08/23/20 07:45 08/23/20 13:13 Insulin Lispro 100 Unit/Ml Insuln.Pen SC 10 u TIDCM [facility] Administration Isosorbide Mononitrate 60 mg 08/23/20 06:00 08/23/20 05:24 Isosorbide Mononitrate 60 Mg Tablet PO 60 mg DAILY [facility] Administration Isosorbide Mononitrate 120 mg 08/22/20 19:00 08/22/20 20:32 Isosorbide Mononitrate 60 Mg Tablet PO 120 mg 1800 [facility] Administration Levothyroxine Sodium 75 mcg 08/22/20 22:00 08/22/20 20:34 Levothyroxine 75 Mcg Tablet PO 75 mcg QHS [facility] Administration Lidocaine 2 patch 08/23/20 06:00 08/23/20 08:20 Lidocaine 5% Patch TOPICAL 2 patch DAILY [facility] Administration Protocol Lisinopril 10 mg 08/23/20 06:00 08/23/20 05:23 Lisinopril 10 Mg Tablet PO 10 mg DAILY [facility] Administration Magnesium Hydroxide 30 ml 08/22/20 21:46 Magnesium Hydroxide 30 Ml Udc PO DAILY PRN Constipation Melatonin 6 mg 08/22/20 22:00 08/22/20 20:31 Melatonin 3 Mg Tablet PO 6 mg QHS [facility] Administration Metoclopramide HCl 10 mg 08/22/20 18:11 Metoclopramide 10 Mg Tablet PO Q8H PRN PRN NAUSEA Morphine Sulfate 2 mg 08/22/20 23:30 08/23/20 13:34 Morphine 2 Mg/Ml Syringe IV 2 mg Q3H PRN PRN Administration Pain Score 6-10 Nitroglycerin 0.4 mg 08/22/20 18:11 Nitroglycerin (Inpatient Use) 0.4 Mg Tab.Subl SL Q5M PRN CARDIAC/CHEST PAIN Pancrelipase 1 capsule 08/23/20 08:00 08/23/20 08:22 Creon 24,[address] Capsule PO 1 capsule BIDCM [facility] Administration Pantoprazole Sodium 20 mg 08/23/20 06:00 08/23/20 05:24 Pantoprazole Sodium 20 Mg Tablet PO 20 mg DAILY [facility] Administration Polyethylene Glycol 17 gm 08/23/20 06:00 08/23/20 05:23 Polyethylene Glycol 3350 17 Gm Packet PO 17 gm DAILY [facility] Administration Pravastatin Sodium 40 mg 08/22/20 22:00 08/22/20 20:33 Pravastatin 40 Mg Tablet PO 40 mg QHS [facility] Administration Senna/Docusate Sodium 1 tablet 08/23/20 06:00 08/23/20 05:23 Senna/Docusate Sodium 1 Tablet PO 1 tablet BID [facility] Administration Sodium Chloride 10 - 40 ml 08/22/20 18:55 08/23/20 13:34 0.9% Saline Lock 10 Ml Syringe IV 20 ml UD PRN Administration SALINE FLUSH Sodium Chloride 10 - 40 ml 08/22/20 21:34 0.9% Saline Lock 10 Ml Syringe IV UD PRN Open End PICC Flush Sodium Chloride 10 - 40 ml 08/22/20 21:34 0.9 % Nacl (Sterile) Posiflush 10 Ml IV UD PRN Port access or dressing change Tizanidine HCl 4 mg 08/22/20 18:35 08/23/20 10:04 Tizanidine Hcl 2 Mg Tablet PO 4 mg Q8H PRN PRN Administration BACK PAIN Trazodone HCl 100 mg 08/22/20 18:11 08/22/20 22:48 Trazodone 100 Mg Tablet PO 100 mg QHS PRN Administration SLEEP Tuberculin PPD 5 tu 08/30/20 10:00 Tuberculin,Purif.Prot.Deriv. 50 Tu/Ml Vial ID 08/30/20 10:01 X1 ONE Venlafaxine HCl 100 mg 08/23/20 06:00 08/23/20 05:24 Venlafaxine Hcl 100 Mg Tablet PO 100 mg BID [facility] Administration Problem List (Last Reviewed 06/10/20 @ 21:[address] Judson Massey MD) Diabetic infection of left foot (Acute) Coronary artery disease (Chronic) Hypertension (Chronic) Stroke (Chronic) Debility (Acute) Diabetes mellitus type 2 in obese (Chronic) Depression (Chronic) Gout (Chronic) Vitamin D deficiency (Chronic) Peripheral arterial occlusive disease (Chronic) Charcot's joint of left foot (Chronic) Hyperlipidemia (Chronic) Hypothyroidism (Chronic) Iron deficiency anemia (Chronic) GERD (gastroesophageal reflux disease) (Chronic) Vital Signs Temp Pulse Resp BP Pulse Ox 97.5 F L 59 L 16 149/72 H 97 08/23/20 14:16 08/23/20 14:16 08/23/20 14:16 08/23/20 14:16 08/23/20 14:16 Oxygen Delivery Method Room Air Weight: 83.007 kg Body Mass Index (BMI) 31.4 Finger Stick Blood Glucose 193 Sodium 143 mmol/L (136-145) 08/23/20 05:10 Potassium 4.0 mmol/L (3.5-5.1) 08/23/20 05:10 Chloride 114 mmol/L (98-107) H 08/23/20 05:10 Carbon Dioxide 24.0 mmol/L (21.0-32.0) 08/23/20 05:10 Anion Gap 5 (5-15) 08/23/20 05:10 BUN 26 mg/dL (7-18) H 08/23/20 05:10 Creatinine 0.97 mg/dL (0.55-1.02) 08/23/20 05:10 Est GFR (MDRD) Af Amer 72 mL/min (>60) 08/23/20 05:10 Est GFR (MDRD) Non-Af 60 mL/min (>60) 08/23/20 05:10 BUN/Creatinine Ratio 26.7 RATIO (10-20) H 08/23/20 05:10 Glucose 86 mg/dL (74-106) 08/23/20 05:10 Assessment/Plan: *1. Pain: acetaminophen 1000mg PO Q6H PRN pain 1-3/10, morphine 2mg IV Q3H PRN pain 6-10/10 and lidocaine 5% 2 patches to the skin once daily. Please consider changing sliding scale for acetaminophen to 1-5 or morphine to 4-10 to eliminate the gap in pain scale coverage. Thanks. Please continue to monitor for increased pain, PRN usage, constipation and respiratory depression. 2. Left foot abscess and cellulitis: ampicillin/sulbactam 3gm IV Q8H thru 08/29/20. Please continue to monitor cultures, renal function, S/S of infection, and diarrhea. 3. CAD/hypertension: carvedilol 25mg PO BID, lisinopril 10mg PO daily, amlodipine 5mg PO daily, isosorbide mononitrate 60mg PO QAM and 120mg PO QPM, clopidogrel 75mg PO daily, aspirin 81mg PO daily, and nitroglycerin 0.4mg SL Q5M PRN cardiac/chest pain. Please continue to monitor BP (last 149/72), HR (last 59), potassium (last 4mmol/L), renal function, cough, swelling, facial flushing, S/S of bleeding, hemoglobin (last 11g/dL), and chest pain. 4. Pancreatic insufficiency: Creon 24,000units 1C PO BIDCM. Please give with first bite of food. Please continue to monitor. *5. Diabetes mellitus II: insulin glargine 30units SC BID and insulin lispro 10u nits SC TIDCM. Please consider decreasing Lantus dose fur to recent BG levels (132, 90, 131, 86). Please continue to monitor for S/S of hypoglycemia, BG levels, and hemoglobin A1c (last 7.7% 08/18/20). 6. Gout: allopurinol 100mg PO daily. Please continue to monitor for S/S of gout and renal function. 7. Hypothyroidism: levothyroxine 75mcg PO QHS. Please continue to monitor for S/S of hypo/hyperthyroidism and TSH (last 08/18/20). 8. GERD: pantoprazole 20mg PO daily. Please continue to monitor for S/S of GERD and diarrhea. *9. Hyperlipidemia: pravastatin 40mg PO QHS. Please consider ordering a lipid panel. Last lipid panel from 07/02/2019. Thanks. Please continue to monitor for muscle pain. 10. Muscle spasms: tizanidine 4mg PO Q8H PRN back pain. Please continue to monitor for back pain and PRN usage. 11. Nausea: metoclopramide 10mg PO Q8H PRN nausea. Please continue to monitor for nausea and PRN usage. Psychotropic Medications: 1. Depression: venlafaxine 100mg PO BID. Please see physician note regarding GDR. *2. Insomnia: melatonin 6mg PO QHS and trazodone 100mg PO QHS PRN sleep. Please consider GDR for trazodone by 01/2021 if clinically appropriate. Thanks. Unnecessary Medications: None Bowel Regimen: Miralax 17gm PO daily, senna/docusate 1T PO BID, MOM 30mL PO daily PRN constipation and bisacodyl 10mg RC daily PRN constipation. Please continue to monitor for constipation and PRN usage. Date of Note:: 08/23/20 - Provider Comments Provider responsibility: Provider responsible to enter orders to implement recommendations <Adolfo Rush Chi - Last Filed: 08/23/20 16:55> Progress Note - Pharmacy Subjective: [] Objective: Allergies doxycycline Allergy (Severe, Verified 08/17/20 15:19) all over body hives and itching atorvastatin calcium [From Lipitor] Allergy (Verified 08/17/20 15:19) Unknown bupropion HCl [From Wellbutrin] Allergy (Verified 08/17/20 15:19) Unknown mannitol [From Reclast] Allergy (Verified 08/17/20 15:19) joint pain, unable to breathe, unable to walk propoxyphene napsylate [From Darvocet-N 100] Allergy (Verified 08/17/20 15:19) Unknown Quinolones Allergy (Verified 08/17/20 15:19) Unknown Tetanus Vaccines and Toxoid [Tetanus Vaccines & Toxoid] Allergy (Verified 08/17/20 15:19) Chest tightness tizanidine Allergy (Verified 08/17/20 15:19) Unknown zoledronic acid [From Reclast] Allergy (Verified 08/17/20 15:19) joint pain,unable to breathe, unaable to walk JOINT PAIN,UNABLE TO BREATHE,UNABLE TO WALK pravastatin Adverse Reaction (Severe, Verified 08/17/20 15:19) Myalgias gemfibrozil Adverse Reaction (Intermediate, Verified 08/17/20 15:19) Unknown NSAIDS (Non-Steroidal Anti-Inflamma Adverse Reaction (Verified 08/17/20 15:19) Other Current Medications Generic Name Dose Route Start Last Admin Trade Name Freq PRN Reason Stop Dose Admin Acetaminophen 1,000 mg 08/22/20 18:11 08/23/20 10:04 Acetaminophen 500 Mg Tablet PO 1,000 mg Q6H PRN PRN Administration Pain Score 1-3 Allopurinol 100 mg 08/23/20 06:00 08/23/20 05:23 Allopurinol 100 Mg Tablet PO 100 mg DAILY [facility] Administration Amlodipine Besylate 5 mg 08/23/20 06:00 08/23/20 05:24 Amlodipine 5 Mg Tablet PO 5 mg DAILY [facility] Administration Aspirin 81 mg 08/23/20 06:00 08/23/20 05:23 Aspirin E.C. 81 Mg Tablet PO 81 mg DAILY [facility] Administration Bisacodyl 10 mg 08/22/20 18:22 Bisacodyl 10 Mg Suppository RC DAILY PRN Constipation Calamine/Phenol 1 applic 08/22/20 22:00 08/23/20 13:29 Menthol/Lanolin/Calamine/Znox 113 Gm Tube TOPICAL Not Given TID [facility] Protocol Carvedilol 25 mg 08/23/20 06:00 08/23/20 05:24 Carvedilol 25 Mg Tablet PO 25 mg BID [facility] Administration Clopidogrel Bisulfate 75 mg 08/23/20 06:00 08/23/20 05:23 Clopidogrel Bisulfate 75 Mg Tablet PO 75 mg DAILY [facility] Administration Heparin Sodium (Beef Lung) 50 units 08/22/20 21:34 Heparin Pf Lock 10 Units/Ml 50 Units/5 Ml Syringe IV UD PRN PICC Line Heparin Flush Ampicillin Sodium/Sulbactam 112 mls @ 150 mls/hr 08/23/20 14:00 08/23/20 13:34 Sodium 3 gm/ Sodium Chloride IV 08/29/20 08:00 150 mls/hr Q8 [facility]Z Administration Sodium Chloride 250 mls @ 15 mls/hr 08/23/20 13:26 08/23/20 13:36 IV 15 mls/hr .[id number] PRN Administration Saline Flush Sodium Chloride 250 mls @ 15 mls/hr 08/23/20 13:26 IV .[id number] PRN Additional IVPB Infusion Insulin Glargine 30 units 08/22/20 19:00 08/23/20 06:08 Insulin Glargine 100 Units/Ml Pen SC Not Given BID [facility] Insulin Human Lispro 10 unit 08/23/20 07:45 08/23/20 13:13 Insulin Lispro 100 Unit/Ml Insuln.Pen SC 10 u TIDCM [facility] Administration Isosorbide Mononitrate 60 mg 08/23/20 06:00 08/23/20 05:24 Isosorbide Mononitrate 60 Mg Tablet PO 60 mg DAILY [facility] Administration Isosorbide Mononitrate 120 mg 08/22/20 19:00 08/22/20 20:32 Isosorbide Mononitrate 60 Mg Tablet PO 120 mg 1800 [facility] Administration Levothyroxine Sodium 75 mcg 08/22/20 22:00 08/22/20 20:34 Levothyroxine 75 Mcg Tablet PO 75 mcg QHS [facility] Administration Lidocaine 2 patch 08/23/20 06:00 08/23/20 08:20 Lidocaine 5% Patch TOPICAL 2 patch DAILY [facility] Administration Protocol Lisinopril 10 mg 08/23/20 06:00 08/23/20 05:23 Lisinopril 10 Mg Tablet PO 10 mg DAILY [facility] Administration Magnesium Hydroxide 30 ml 08/22/20 21:46 Magnesium Hydroxide 30 Ml Udc PO DAILY PRN Constipation Melatonin 6 mg 08/22/20 22:00 08/22/20 20:31 Melatonin 3 Mg Tablet PO 6 mg QHS [facility] Administration Metoclopramide HCl 10 mg 08/22/20 18:11 Metoclopramide 10 Mg Tablet PO Q8H PRN PRN NAUSEA Morphine Sulfate 2 mg 08/22/20 23:30 08/23/20 13:34 Morphine 2 Mg/Ml Syringe IV 2 mg Q3H PRN PRN Administration Pain Score 6-10 Nitroglycerin 0.4 mg 08/22/20 18:11 Nitroglycerin (Inpatient Use) 0.4 Mg Tab.Subl SL Q5M PRN CARDIAC/CHEST PAIN Pancrelipase 1 capsule 08/23/20 08:00 08/23/20 08:22 Creon 24,[address] Capsule PO 1 capsule BIDCM [facility] Administration Pantoprazole Sodium 20 mg 08/23/20 06:00 08/23/20 05:24 Pantoprazole Sodium 20 Mg Tablet PO 20 mg DAILY [facility] Administration Polyethylene Glycol 17 gm 08/23/20 06:00 08/23/20 05:23 Polyethylene Glycol 3350 17 Gm Packet PO 17 gm DAILY [facility] Administration Pravastatin Sodium 40 mg 08/22/20 22:00 08/22/20 20:33 Pravastatin 40 Mg Tablet PO 40 mg QHS [facility] Administration Senna/Docusate Sodium 1 tablet 08/23/20 06:00 08/23/20 05:23 Senna/Docusate Sodium 1 Tablet PO 1 tablet BID [facility] Administration Sodium Chloride 10 - 40 ml 08/22/20 18:55 08/23/20 13:34 0.9% Saline Lock 10 Ml Syringe IV 20 ml UD PRN Administration SALINE FLUSH Sodium Chloride 10 - 40 ml 08/22/20 21:34 0.9% Saline Lock 10 Ml Syringe IV UD PRN Open End PICC Flush Sodium Chloride 10 - 40 ml 08/22/20 21:34 0.9 % Nacl (Sterile) Posiflush 10 Ml IV UD PRN Port access or dressing change Tizanidine HCl 4 mg 08/22/20 18:35 08/23/20 10:04 Tizanidine Hcl 2 Mg Tablet PO 4 mg Q8H PRN PRN Administration BACK PAIN Trazodone HCl 100 mg 08/22/20 18:11 08/22/20 22:48 Trazodone 100 Mg Tablet PO 100 mg QHS PRN Administration SLEEP Tuberculin PPD 5 tu 08/30/20 10:00 Tuberculin,Purif.Prot.Deriv. 50 Tu/Ml Vial ID 08/30/20 10:01 X1 ONE Venlafaxine HCl 100 mg 08/23/20 06:00 08/23/20 05:24 Venlafaxine Hcl 100 Mg Tablet PO 100 mg BID [facility] Administration Problem List (Last Reviewed 06/10/20 @ 21:[address] Judson Massey MD) Diabetic infection of left foot (Acute) Coronary artery disease (Chronic) Hypertension (Chronic) Stroke (Chronic) Debility (Acute) Diabetes mellitus type 2 in obese (Chronic) Depression (Chronic) Gout (Chronic) Vitamin D deficiency (Chronic) Peripheral arterial occlusive disease (Chronic) Charcot's joint of left foot (Chronic) Hyperlipidemia (Chronic) Hypothyroidism (Chronic) Iron deficiency anemia (Chronic) GERD (gastroesophageal reflux disease) (Chronic) Vital Signs Temp Pulse Resp BP Pulse Ox 97.5 F L 59 L 16 149/72 H 97 08/23/20 14:16 08/23/20 14:16 08/23/20 14:16 08/23/20 14:16 08/23/20 14:16 Oxygen Delivery Method Room Air Weight: 83.007 kg Body Mass Index (BMI) 31.4 Finger Stick Blood Glucose 193 Sodium 143 mmol/L (136-145) 08/23/20 05:10 Potassium 4.0 mmol/L (3.5-5.1) 08/23/20 05:10 Chloride 114 mmol/L (98-107) H 08/23/20 05:10 Carbon Dioxide 24.0 mmol/L (21.0-32.0) 08/23/20 05:10 Anion Gap 5 (5-15) 08/23/20 05:10 BUN 26 mg/dL (7-18) H 08/23/20 05:10 Creatinine 0.97 mg/dL (0.55-1.02) 08/23/20 05:10 Est GFR (MDRD) Af Amer 72 mL/min (>60) 08/23/20 05:10 Est GFR (MDRD) Non-Af 60 mL/min (>60) 08/23/20 05:10 BUN/Creatinine Ratio 26.7 RATIO (10-20) H 08/23/20 05:10 Glucose 86 mg/dL (74-106) 08/23/20 05:10 Assessment/Plan: Psychotropic Medications: Unnecessary Medications: Bowel Regimen: - Provider Comments Provider responsibility: Provider responsible to enter orders to implement recommendations Provider Comments to Recommendations by Pharmacy: Agree
--- NOTE | 2020-08-23 16:05 | NURSING ---
BED SIDE COMMODE BESIDE PT IN CHAIR,THIS NURSE MOVED IT AFTER PT TRANSFERRED HERSELF BACK TO CHAIR AFTER USING IT. EXPLAINED TO PT THAT SHE WAS A 1 ASSIST AND MUST CALL US AND THAT WE DID NOT WANT HER TO FALL. PT JUST LOOKED AT THIS NURSE AND SAID OK. ABOUT 5 MINS LATER AID COMES TO THIS NURSE AND STATED THAT PT YELLED AT HER AND STATED SHE WAS PISSED WANTS THAT NURSE TO COME TO ROOM. THIS NURSE IN TO TALK TO PT AND PT STATED HER PHYSICAL THERAPIST AND DOCTOR SAID IT WAS OK FOR HER [place] [facility] [place] THIS NURSE STATED I WILL CHECK WITH THERAPY. THERAPY STATED SHE WAS TO BE A 1 ASSIST DUE TO THEY FELT SHE WAS NOT STEADY ENOUGH TO GET UP ON HER OWN TODAY BUT WILL REVALUATE HER IN THE MORNING. THIS NURSE ALSO CALLED LUCI LUO RN THAT WAS IN CHARGE OF FLOOR THIS WEEK AND EXPLAINED TO HER THE SITUATION. LUCI STATED THE SAME THERAPY. WENT TO PT ROOM AND PT ON PHONE TO AND I ASKED TO EXPLAINED TO HER,PT STATED THAT IF I CALL OUT AND HAVE TO WAIT I WILL JUST PISS MY SELF. THEN PT STATED TO I WANT TO COME HOME AND LOOKED AT THIS NURSE AND STATED GO GET THE POKER MACHINE ATTENDANT I WANT TO TALK TO HER. EXPLAINED TO DOMITILA VAZQUEZ. WENT BACK TO PT ROOM AND PT WAS UP WALKING ON HER FEET AND STATED ALEM LEAVING. PT WAS PACKING UP HER BELONGINGS. PT STATED TELL THE DOCTOR I WANT MY PERCEPTIONS AND D/C PAPERS. THIS NURSE RN AWARE AND SS. TAYLOR REPORTED TO LUCI LUO.
--- NOTE | 2020-08-23 16:08 | NURSING ---
Discussed evaluation with supervising therapist Annia Das. She spoke to the OT that did the patients evaluation and felt that her evaluation recommendation of assist with transfers was appropriate. Patient is requesting to pivot to bedside commode independently. Only independent activity request patient is making. Staff will set up patient for easy pivot in room to bsc on good foot, with the understanding that our recommendation is that she needs to call for help and understands the risk of independent transfer (weight on operative foot affecting healing of her foot and possible loss of balance). suction worker, CRITICAL CARE TRANSPORT NURSE, Aids and social services manager all involved with discussion and on same page. Helen Lopez aware of situation.
--- NOTE | 2020-08-23 16:12 | NURSING ---
LUCI LUO RN CAME OVER TO TALK TO DOMITILA VAZQUEZ AND THIS NURSE ABOUT A PLAN FOR PT. PLAN IS TO EXPLAINED TO PT ABOUT SAFETY AND USING CALL LIGHT AND BSC AND TO REARRANGE ROOM SO SHE DOES NOT PUT PRESSURE ON LEFT FOOT. DOMITILA VAZQUEZ WENT TO ROOM TO TALK TO PT. RN AWARE.
[2020-08-23 16:30] LABS: Bedside Glucose 90 mg/dL (70-110)
--- NOTE | 2020-08-23 16:45 | CASEMGMT ---
Social Work Notified by nursing pt unable to not able to self transfer to BSC and wanting to leave. Met with patient in room. Pt explained her concerns - she stated she was able self transfer to BSC on acute, she is peeing every 15 minutes and she understands staff cannot come every 15 mins, she slept horrible the night before and thinks there were medication changes without her approval, and she wants to leave. Validated pt's concerns and explained pt's safety is a priority and therapy is recommending x1 assist for transfers to BSC, pt is NWBS to left foot and concerned about bearing weight with SPT. Offered to have nurse/dr review home medication list to current med list for any discrepancies and to notify dr of frequent urination. Pt denied any s/s UTI. Explained pt has a right to leave but it would be AMA and Dr and SW cannot assist with any DC plans. Pt is on IV ATB until 47 and that would not be continued at home if she left AMA. Inquired about goal coming to TCU. Pt explained she wants her ATB and for her foot wound to heel because it wasn't being managed properly at home. Encouraged pt to remain in TCU to follow through with care and continue getting stronger and SW will assist with a safe DC plan when it is time. Collaborated with nursing staff and covering Director. Explained to pt it is the pt's right to have BSC accessible at pt request but continuous education on waiting for assistance and NWBS on foot. Pt expressed understanding and agreed to put ultrasonic solderer-light still to use the BSC. Provided [id number] med lists and no discrepancies, and reviewed PRN meds. Pt appreciative and agreed to remain in TCU. Rae Ruiz, CHEMISTRY INTERN ADJUNCT PROFESSOR OF VOICE
[2020-08-23] MEDS: Isosorbide Mononitrate 60 MG Tablet 120 MG PO (17:54)
--- NOTE | 2020-08-23 18:04 | NURSING ---
THIS NURSE WALKING IN ROOM PT WAS JUST TRANSFERRING OF OFF BSC. HIS NURSE EDUCATED PT AGAIN ABOUT CALLING OUT FOR HELP. PT STATED I DO IT ALL THE TIME AND HAVE NO PROBLEMS. THIS NURSE EMPTIED BSC AND MEASURED 600CC. PT STATED WHY ALEM I PEEING SO MUCH.THIS NURSE STATED SHE WOULD LOOK INTO IT AND LET PT KNOW.
[2020-08-23] MEDS: Pravastatin 40 MG Tablet PO (20:33)
[2020-08-23] MEDS: Levothyroxine 75 MCG Tablet PO (20:33)
[2020-08-23] MEDS: MELATONIN 3 MG TABLET 6 MG PO (20:33)
[2020-08-23 20:35] VITALS: PULSE 78; RESP 16; O2SAT 95
--- NOTE | 2020-08-23 21:10 | NURSING ---
This nurse walked into patient room and patient states, I have to use the bedside commode stands up and self transferred herself on the bedside commode without the use of her walker. States, when i was on the other floor i could walk around by myself. This nurse explain TCU we need her to use the call light for transferring until therapy states that she can be up in room [id number]. Patient didn't agree but states, I understand.
[2020-08-23 21:26] LABS: Bedside Glucose 259 mg/dL (70-110)
--- NOTE | 2020-08-23 23:21 | NURSING ---
Lars in pharmacy called and said ok to give pravastatin. Pt has been on it since 2017
[2020-08-23] MEDS: traZODone 100 MG Tablet PO (23:23)
[2020-08-24] MEDS: Morphine 2 MG/ML Syringe IV ×2 (00:58→16:39)
[2020-08-24] MEDS: 0.9% Saline Lock 10 ML Syringe IV ×5 (00:58→22:12)
[2020-08-24 06:23] VITALS: BP 174/49; PULSE 65; RESP 16; TEMP 36.7; O2SAT 97
[2020-08-24 06:26] LABS: Bedside Glucose 89 mg/dL (70-110)
--- NOTE | 2020-08-24 06:49 | NURSING ---
pt refuses to take any po at 6am. Pt said she will take at 8am. She is agreeable to 6am unasyn
[2020-08-24] MEDS: Aspirin E.C. 81 MG Tablet PO (07:59)
[2020-08-24] MEDS: Menthol/Lanolin/Calamine/Znox 113 GM Tube 1 APPLIC TOPICAL ×3 (07:59→20:42)
[2020-08-24] MEDS: Lisinopril 10 MG Tablet PO (08:00)
[2020-08-24] MEDS: Pantoprazole Sodium 20 MG Tablet PO (08:01)
[2020-08-24] MEDS: Clopidogrel Bisulfate 75 MG Tablet PO (08:02)
[2020-08-24] MEDS: Allopurinol 100 MG Tablet PO (08:02)
[2020-08-24] MEDS: amLODIPine 5 MG Tablet PO (08:02)
[2020-08-24] MEDS: Carvedilol 25 MG Tablet PO ×2 (08:02→20:33)
[2020-08-24] MEDS: Senna/Docusate Sodium 1 Tablet PO ×2 (08:03→17:14)
[2020-08-24] MEDS: Isosorbide Mononitrate 60 MG Tablet PO (08:03)
[2020-08-24] MEDS: Polyethylene Glycol 3350 17 GM PACKET PO (08:07)
[2020-08-24] MEDS: Creon 24,000 unit DR Capsule 1 CAP PO ×2 (08:08→17:13)
[2020-08-24] MEDS: tiZANidine HCl 2 MG Tablet 4 MG PO ×2 (08:13→20:34)
--- NOTE | 2020-08-24 09:01 | PCA ---
Pt refused breakfast, i offered pt a alter. meal an she declined stated that she has no appetite
[2020-08-24 11:18] LABS: Bacteria 0 SEEN /hpf (None Seen); Mucous, Urine 0 SEEN /hpf (<or=2+); Red Blood Cells-Urine 0 SEEN /hpf (0-5); Squamous Epithelial Cells - UA 0 SEEN /hpf (5-10); White Blood Cells 0 SEEN /hpf (0-5)
[2020-08-24 11:29] LABS: Color, Urine Yellow (Yellow); Glucose, Dipstick Normal (Normal); Ketone-Dipstick Negative (Negative); Leukocyte Esterase-Dipstick Negative /ul (Negative); Nitrite-Dipstick Negative (Negative); Occult Blood-Urine Negative /ul (Negative); Protein-Dipstick 30 mg/dl (Negative); Urine Bilirubin Dipstick Negative (Negative); Urine Clarity Clear (Clear); Urine Urobilinogen Normal (Normal)
[2020-08-24 11:35] LABS: Bedside Glucose 131 mg/dL (70-110)
[2020-08-24] MEDS: Insulin Lispro 100 UNIT/ML INSULN.PEN 10 UNIT SC (13:11)
--- NOTE | 2020-08-24 14:02 | PCM.CONS.P ---
Problem List (1) Debility Status: Acute (2) Constipation due to opioid therapy Status: Acute (3) Chronic neuropathic pain Status: Acute History of Present Illness Date of Consult: 08/24/20 Reason for Consult: chronic pain, constipation Requesting physician: Dr. Rush Primary care physician: Dr. Con Johnson MD - History of Present Illness The patient is a 75 year old F who was admitted to [facility] TCU on 08/22/2020 following a 5-day hospitalization for a diabetic foot infection of the L foot with associated cellulitis. On 08/19/2020, patient underwent a surgical debridement and abscess drainage. A decision was made for her to convalesce in TCU for rehabilitation and strengthening prior to returning home with her . Lisa has an extensive PMHx that includes CAD s/p CABG x3 vessel and multiple stents, HTN, CVA, DM2, depression, PAD, diabetic polyneuropathy, HLD, hypothyroisism, iron deficiency anemia, GERD, vitamin D deficiency, insomnia, s/p gastric bypass with chronic diarrhea, gout, osteoporosis, s/p appendectomy, s/p tonsillectomy, s/p carpal tunnel release, s/p carotid endarterectomy, R foot transmetatarsal amputation, exostectomy L foot, s/p ventral hernia repair. Lisa is sitting in recliner with LE elevated when this SENIOR CYBER SECURITY ANALYST entered room for this encounter. She was pleasant and easily engaged in conversation. Patient notes that she is unclear about how this most recent infection happened, as she had been following up with the wound center and doing everything they told me since the first infection. states that she is connected with [facility] for her cardiac issues, Dr. Magana is her branch or department chief librarian, Dr. Con Johnson is her PCP, and she sees Dr. Mims for pain management. Additionally, she states that she follows up monthly with a correctional case records supervisor from her insurance company. Outside of this recent infection, surgery, and hospitalization, Lisa tells me that she has been doing well with regard to her overall health. When asked about why she is on Roxanol, Lisa states that she is not on it for pain, but because of my chronic diarrhea from my gastric bypass. However, she is also on Linzess, Senna S, and Miralax for constipation, which is inconsistent with her explanation. Lisa reports that she does have some diabetic neuropathy in her legs, but nothing has been helpful for that. 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 Lisa denies any recent nausea or vomiting, but does note that she has had a poor appetite for the past 3-4 weeks with an associated 6# weight loss. She does have Blue ordered BID to increase her protein to enhance wound healing. Lisa lives at home with her of 9 years. She notes that he takes such good care of me and that he is able to assist with wound treatments and ADLs as she needs. 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 Documentation from staff reflects that Lisa is not adhering to the NWB status and has been noted to be transferring herself to BS independently, despite reminders to call for staff assist. This raises some concern about her ability and willingness to follow with POC care at home. Palliative medicine has been consulted to augment the patient's medical support while in TCU and when she returns home. Patient Problems: Chronic Problems (Last Reviewed 06/10/20 @ 21:[address] 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 Hatfield @ [facility]:(Promus Premier 4.0 X 12 mm L2 stent from distal left main into proximal LCX; Promus Premier RX 2.25 X 12 mm L1 stent in distal LCX) 12/03/2018:Triple vessel CAD of the LAD, LCX, RCA Successful PTCA/YASIR mid LCX with a 2.5 x 20 Promus Synergy stent; 85%-->0-%, no dissection. 12/24/18:FFR of RCA=0.97, negative, left for medical managemen History of coronary artery bypass graft (Chronic) CABG X 3 vessels [facility]:DANIEL to LAD, reverse SVG to dx and to 2nd OM per Dr. Borjas @ [facility] 09/09/2014 Atherosclerotic heart disease of [place] coronary artery without angina pectoris (Chronic) CABG X 3 vessels [facility]: DANIEL to LAD, reverse SVG to dx and to 2nd OM per Dr. Borjas @ [facility] 09/09/2014; PTCA/YASIR to Left main, LAD, and OM1 per Dr. Hatfield 12/21/2014; Carotid artery disease (Chronic) Peripheral vascular disease (Chronic) Hyperlipidemia (Chronic) Hypothyroidism (Chronic) Iron deficiency anemia (Chronic) GERD (gastroesophageal reflux disease) (Chronic) Surgical History: angioplasty - Stent., appendectomy, coronary bypass surgery, gastric bypass, tonsillectomy, - - , Carpal tunnel release, cardiac catheterization, carotid endarterectomy, right foot transmetatarsal amputation, exostectomy left foot Psychiatric History: Anxiety, Depression Home Medications: Ambulatory Orders Medication Instructions Recorded Pravastatin Sodium 40 mg PO QHS 03/10/17 amlodipine 5 mg tablet 5 mg PO DAILY tab 05/05/18 Esomeprazole Magnesium 20 mg PO DAILY 09/21/19 clopidogrel 75 mg tablet 75 mg PO DAILY #90 tab 11/23/19 Allopurinol 100 mg PO DAILY 03/17/20 Calcium Citrate 200 mg PO BID #0 03/17/20 aspirin 81 mg tablet,delayed 81 mg PO DAILY 04/05/20 release cbd 1 dose PO 4X/DAY PRN 04/05/20 akloqp-jusizkhg-ujkzkin 1 cap PO BID cap 04/05/20 24,000-76,000-120,000 unit capsule,delayed rel Menthol/Lanolin/Calamine/Znox 1 applic TOPICAL TID 04/19/20 [Calmoseptine Ointment] Acetaminophen [Tylenol] 1,000 mg PO Q6H PRN PRN tab 04/25/20 Nitroglycerin (INPATIENT USE) 0.4 mg SUBLINGUAL Q5M PRN tab.subl 04/25/20 [Nitrostat] Carvedilol 25 mg PO BID 08/17/20 Isosorbide Mononitrate [Isosorbide 60 mg PO DAILY 08/17/20 Mononitrate ER] Isosorbide Mononitrate [Isosorbide 120 mg PO DAILY 08/17/20 Mononitrate ER] Levothyroxine Sodium 75 mcg PO QHS 08/17/20 Linaclotide [Linzess] 72 mcg PO DAILY 08/17/20 Lisinopril 10 mg PO DAILY 08/17/20 Melatonin 6 mg PO QHS 08/17/20 Metoclopramide HCl 10 mg PO Q8H PRN 08/17/20 Morphine Sulfate 3 ml PO Q6H PRN PRN 08/17/20 Multivitamin/Iron/Folic Acid [Cvs 0.5 tablet PO BID 08/17/20 Spectravite Ultra Women Tb] Nutritional Supplement [Blue - 1 packet PO BIDCM 08/17/20 ORANGE FLAVOR] Tizanidine HCl 4 mg PO Q8H PRN 08/17/20 Trazodone HCl 100 mg PO QHS PRN 08/17/20 Tryptophan [l-Tryptophan] 500 mg PO DINNER 08/17/20 Venlafaxine HCl 100 mg PO BID 08/17/20 Wheat Dextrin [Benefiber] 15 ml PO DAILY 08/17/20 Amox/Clavulanate Tablet [Augmentin 875 mg PO BID 08/22/20 Tablet] Insulin Glargine [Lantus SoloStar 30 units SC BID 08/22/20 Pen] Insulin Lispro [Humalog KwikPen] 10 unit SC TIDCM 08/22/20 Insulin Lispro [Humalog KwikPen] See Protocol SC ACHS 08/22/20 Lidocaine [Lidoderm Patch] 2 patch TOPICAL DAILY 08/22/20 Allergies doxycycline Allergy (Severe, Verified 08/17/20 15:19) all over body hives and itching atorvastatin calcium [From Lipitor] Allergy (Verified 08/17/20 15:19) Unknown bupropion HCl [From Wellbutrin] Allergy (Verified 08/17/20 15:19) Unknown mannitol [From Reclast] Allergy (Verified 08/17/20 15:19) joint pain, unable to breathe, unable to walk propoxyphene napsylate [From Darvocet-N 100] Allergy (Verified 08/17/20 15:19) Unknown Quinolones Allergy (Verified 08/17/20 15:19) Unknown Tetanus Vaccines and Toxoid [Tetanus Vaccines & Toxoid] Allergy (Verified 08/17/20 15:19) Chest tightness tizanidine Allergy (Verified 08/17/20 15:19) Unknown zoledronic acid [From Reclast] Allergy (Verified 08/17/20 15:19) joint pain,unable to breathe, unaable to walk JOINT PAIN,UNABLE TO BREATHE,UNABLE TO WALK pravastatin Adverse Reaction (Severe, Verified 08/17/20 15:19) Myalgias gemfibrozil Adverse Reaction (Intermediate, Verified 08/17/20 15:19) Unknown NSAIDS (Non-Steroidal Anti-Inflamma Adverse Reaction (Verified 08/17/20 15:19) Other Paternal Family History: Family History (Last Reviewed 08/25/20 @ 09:26 by CLIFFORD Tom) Mother Cancer CVA (cerebral vascular accident) CAD (coronary artery disease) Father CAD (coronary artery disease) History of coronary artery bypass graft Sister CAD (coronary artery disease) Multiple sclerosis Other Anxiety Bleeding disorder Depression Diabetes Heart disease High cholesterol Hypertension Maternal Family History: Family History (Last Reviewed 08/25/20 @ 09:26 by CLIFFORD Tom) Mother Cancer CVA (cerebral vascular accident) CAD (coronary artery disease) Father CAD (coronary artery disease) History of coronary artery bypass graft Sister CAD (coronary artery disease) Multiple sclerosis Other Anxiety Bleeding disorder Depression Diabetes Heart disease High cholesterol Hypertension - Social History Lives: Spouse/ Significant Other Smoking Status: Never smoker Tobacco Use: Non-smoker Alcohol: None Drugs: None Code Status: Full Code Review of Systems Constitutional: Reports: Weight Change - with decreased appetite. Denies: Fever, Malaise, Weakness Eyes: Denies: Vision Change HEENT: Denies: Difficulty Hearing, Difficulty Swallowing, Sinus Congestion, Sore Throat Cardiovascular: Denies: Chest Pain, Chest Tightness, Edema, Palpitations, Syncope Respiratory: Denies: Cough, Shortness of Breath Gastrointestinal: Reports: Constipation. Denies: Abdominal Pain, Nausea, Vomiting Genitourinary: Reports: Frequency. Denies: Dysuria, Retention Musculoskeletal: Reports: Foot Pain, Joint Pain. Denies: Back Pain Skin: Reports: Wounds - surgical wound to L foot. Denies: Rash Neurological: Denies: Balance problems, Change in Speech, Confusion, Seizures Psychiatric: Reports: Anxiety - stable, Depression - stable Endocrine: Reports: Polyuria Hematologic/ Lymphatic: Reports: Anemia, Hx of blood clot Physical Exam Palliative Performance Scale %: 60 General: Alert, Oriented x3, Cooperative, No apparent distress, Well developed HEENT: Atraumatic, PERRLA, EOMI, Normocephalic Oral: Moist Mucosa, No Gingival or Mucosal Lesions/ Ulcerations Neck: Supple, No JVD, Negative Carotid Bruits Lungs: Clear to auscultation, Normal air movement Cardiovascular: Regular rate, Regular Rhythm, Normal S1, Normal S2, No murmurs Abdomen: Bowel Sounds Present, Soft, Non Tender, Obese Extremities: No edema Skin: No rashes, No breakdown, Ulcer/ Wound - L foot wound with dressing D/I Musculoskeletal: No Tenderness to Palpation of Joints or Extremities, No Muscle Wasting Lymphatic: No Cervical, Supraclavicular, or Inguinal Adenopathy Neurological: Cranial nerves II-XII grossly intact Psych/Mental Status: Normal Affect, Appropriate, Alert and oriented to time, place, person, mood and affect Objective: Vital Signs Temp Pulse Resp BP Pulse Ox 98.0 F 65 16 174/49 H 97 08/24/20 06:23 08/24/20 06:23 08/24/20 06:23 08/24/20 06:23 08/24/20 06:23 Oxygen Delivery Method Room Air Weight: 183 lb Body Mass Index (BMI) 31.4 Finger Stick Blood Glucose 193 Intake and Output for Last 24 Hours 08/22/20 08/23/20 08/24/20 23:59 23:59 23:59 Intake Total 2087.75 / 2087.75 352 / 352 Output Total 600 / 600 Balance 1487.75 / 1487.75 352 / 352 Laboratory Tests Past 24 Hrs 08/24/20 11:05 Urine Color Yellow Urine Clarity Clear Urine pH 6.0 Ur Specific [place] 1.010 Urine Protein 30 H Urine Glucose (UA) Normal Urine Ketones Negative Urine Occult Blood Negative Urine Nitrite Negative Urine Bilirubin Negative Urine Urobilinogen Normal Ur Leukocyte Esterase Negative Urine RBC 0 SEEN Urine WBC 0 SEEN Ur Squamous Epith Cells 0 SEEN Urine Bacteria 0 SEEN Urine Mucus 0 SEEN Assessment/Plan All Active Problems (Last Reviewed 06/10/20 @ 21:[address] Judson Massey MD) Diabetic infection of left foot (Acute) Abscess of left foot (Acute) Constipation due to opioid therapy (Acute) Chronic neuropathic pain (Acute) Debility (Acute) Decubitus ulcer of sacral region, stage 2 (Resolved) Lisa is a 75-year-old female with multiple, chronic, complex medical problems that prove to be somewhat life-limiting. She is connected with appropriate specialists, but seems to have some recurrent medical issues that may be related to poor compliance with POC or lack of understanding. 1. L diabetic foot infection with poorly controlled DM2: continue wound care, antibiotics, and NWB status as ordered. Most recent A1C 7.7. Provide ongoing education and reinforcement of diabetic diet and medications to maintain better control of glucose levels. Continue to follow-up with Dr. Magana and wound center. 2. Debility: continue with PT/OT recommendations. 3. Constipation, unclear if opioid-related: continue current interventions. However, would like to discuss the use of morphine sulfate as a diarrhea control agent, as I suspect the patient is not being entirely truthful about this given the multiple prescribed medications to manage constipation and her admitted history of addition to other opioids and benzodiazepines. 4. CAD/HTN/HLD: continue to follow up with [facility]. Lisa is agreeable for [facility] ([facility] known [facility]) will follow up with patient following her discharge from TCU to home to asses her condition, care coordination, ongoing education, and supportive presence in-home. Thank you for the consult and opportunity to participate in the care of this patient. Please contact our office if needs are identified prior to her discharge home.
[2020-08-24 14:29] VITALS: BP 153/65; PULSE 68; RESP 16; TEMP 35.9; O2SAT 97
[2020-08-24 16:45] LABS: Bedside Glucose 56 mg/dL (70-110)
--- NOTE | 2020-08-24 17:09 | NURSING ---
Pt rang call light and this nurse answered it. pt stated she wanted ice water and was diaphoretic. Pt stated she would also like a diet pop because her sugar was 7 she stated she had her own glucometer and checked it. Blood sugar was rechecked with hospital glucometer and it was 56, this nurse gave pt lornadoons, scotty crackers, orange juice and gingerale. pt was educated on immediately ringing for staff if she feels her sugar is dropping, pt verbalized understanding
[2020-08-24] MEDS: Isosorbide Mononitrate 60 MG Tablet 120 MG PO (17:14)
[2020-08-24 17:20] LABS: Bedside Glucose 204 mg/dL (70-110)
[2020-08-24] MEDS: Insulin Lispro 100 UNIT/ML INSULN.PEN 7 UNIT SC (18:00)
[2020-08-24] MEDS: Pravastatin 40 MG Tablet PO (20:30)
[2020-08-24] MEDS: Levothyroxine 75 MCG Tablet PO (20:30)
[2020-08-24] MEDS: MELATONIN 3 MG TABLET 6 MG PO (20:31)
[2020-08-24 20:43] VITALS: PULSE 72; RESP 16; O2SAT 96
[2020-08-24 21:51] LABS: Bedside Glucose 220 mg/dL (70-110)
[2020-08-24] MEDS: traZODone 100 MG Tablet PO (22:12)
[2020-08-25 06:14] VITALS: BP 156/66; PULSE 65; RESP 16; TEMP 36.6; O2SAT 96
[2020-08-25] MEDS: Clopidogrel Bisulfate 75 MG Tablet PO (06:15)
[2020-08-25 06:16] LABS: Bedside Glucose 120 mg/dL (70-110)
--- NOTE | 2020-08-25 06:16 | PCA ---
pt has been glory self to bsc reported to nurse
[2020-08-25] MEDS: Polyethylene Glycol 3350 17 GM PACKET PO (06:17)
[2020-08-25] MEDS: tiZANidine HCl 2 MG Tablet 4 MG PO ×2 (06:19→18:06)
[2020-08-25] MEDS: Menthol/Lanolin/Calamine/Znox 113 GM Tube 1 APPLIC TOPICAL ×3 (06:28→21:22)
[2020-08-25] MEDS: Senna/Docusate Sodium 1 Tablet PO ×2 (06:38→18:03)
[2020-08-25] MEDS: Aspirin E.C. 81 MG Tablet PO (08:21)
[2020-08-25] MEDS: Carvedilol 25 MG Tablet PO ×2 (08:21→21:20)
[2020-08-25] MEDS: Creon 24,000 unit DR Capsule 1 CAP PO ×2 (08:21→18:05)
[2020-08-25] MEDS: amLODIPine 5 MG Tablet PO (08:22)
[2020-08-25] MEDS: Pantoprazole Sodium 20 MG Tablet PO (08:23)
[2020-08-25] MEDS: Lisinopril 10 MG Tablet PO (08:24)
[2020-08-25] MEDS: Acetaminophen 500 MG Tablet 1000 MG PO (08:30)
[2020-08-25] MEDS: Insulin Lispro 100 UNIT/ML INSULN.PEN 7 UNIT SC ×2 (08:31→11:52)
[2020-08-25 08:36] VITALS: BP 168/76; PULSE 68
[2020-08-25] MEDS: Isosorbide Mononitrate 60 MG Tablet PO (09:28)
[2020-08-25] MEDS: Allopurinol 100 MG Tablet PO (09:29)
[2020-08-25 10:30] VITALS: PULSE 71; RESP 18; O2SAT 98
[2020-08-25 10:41] LABS: Bedside Glucose 292 mg/dL (70-110)
--- NOTE | 2020-08-25 12:38 | NURSING ---
Project Manager Senior Note: During initial assessment, resident expressing frustration regarding current visitor regulations r/t COVID-19. Res is able to come OOR on this date and is scheduled to visit. Res states that she feels like a prisoner being stuck in this room so encouraged resident to come out of her room for therapy, meals, and visits with . Resident refused offer to come out at this time. Asked resident what could be done to improve her care or situation and resident stated that she feels she does not need to be here. Offered her books, puzzles, deck of cards and further visits. Declined. Will continue to offer time out of room.
[2020-08-25] MEDS: Insulin Lispro 100 UNIT/ML INSULN.PEN 10 UNIT SC ×2 (12:56→17:59)
[2020-08-25] MEDS: 0.9% Saline Lock 10 ML Syringe IV ×3 (13:36→22:17)
[2020-08-25 15:03] VITALS: BP 153/63; PULSE 74; RESP 14; TEMP 36.8; O2SAT 98
--- NOTE | 2020-08-25 15:23 | NURSING ---
THIS NURSE SEEN PT COMING OUT OF ROOM IN [place] WITH . ASKED PT IF THERAPY RELEASED HER TO BE UP AB OBDULIO. PT STATED NO BUT MY IS WITH ME. THIS NURSE STATED TO PT THAT SHE MUST HAVE A STAFF MEMBER WITH HER IF SHE WISHES TO BE UP FOR SAFETY REASONS AND THIS NURSE WOULD WALK WITH THEM. PT STATED NO! YOU GUYS ARE ALWAYS CHANGING YOUR MINDS. PT WENT IN ROOM AND SLAMMED THE DOOR.
--- NOTE | 2020-08-25 15:36 | NURSING ---
UPDATED BY PT IN ROOM.
[2020-08-25 16:40] LABS: Bedside Glucose 130 mg/dL (70-110)
[2020-08-25] MEDS: Isosorbide Mononitrate 60 MG Tablet 120 MG PO (18:04)
[2020-08-25] MEDS: Morphine 2 MG/ML Syringe IV (21:14)
[2020-08-25 21:20] LABS: Bedside Glucose 135 mg/dL (70-110)
[2020-08-25] MEDS: Levothyroxine 75 MCG Tablet PO (21:20)
[2020-08-25] MEDS: MELATONIN 3 MG TABLET 6 MG PO (21:20)
[2020-08-25] MEDS: Pravastatin 40 MG Tablet PO (21:20)
[2020-08-26] MEDS: tiZANidine HCl 2 MG Tablet 4 MG PO ×3 (04:12→21:21)
[2020-08-26] MEDS: Polyethylene Glycol 3350 17 GM PACKET PO (04:15)
[2020-08-26] MEDS: Senna/Docusate Sodium 1 Tablet PO (04:16)
[2020-08-26] MEDS: Clopidogrel Bisulfate 75 MG Tablet PO (04:16)
[2020-08-26] MEDS: Menthol/Lanolin/Calamine/Znox 113 GM Tube 1 APPLIC TOPICAL ×3 (04:24→19:58)
[2020-08-26 04:56] VITALS: BP 135/53; PULSE 64; RESP 16; TEMP 36.7; O2SAT 97
[2020-08-26] MEDS: 0.9% Saline Lock 10 ML Syringe IV ×4 (04:56→22:43)
--- NOTE | 2020-08-26 05:00 | NURSING ---
This nursechanged PICC line dressing LIZY per protocol. Applied surgical mask on patient, removed old PICC dressing, cleansed area with chloraprep, applied skin prep to area once dry. No redness noted. 1 cm exposed catheter, intact, patent, connector changed, flushed with 20 ml normal saline, & blood returned. Patient denies any discomfort.
[2020-08-26 06:26] LABS: Bedside Glucose 80 mg/dL (70-110)
[2020-08-26] MEDS: Acetaminophen 500 MG Tablet 1000 MG PO (07:49)
[2020-08-26] MEDS: Carvedilol 25 MG Tablet PO ×2 (07:51→19:57)
[2020-08-26] MEDS: Pantoprazole Sodium 20 MG Tablet PO (07:51)
[2020-08-26] MEDS: Isosorbide Mononitrate 60 MG Tablet PO (07:51)
[2020-08-26] MEDS: amLODIPine 5 MG Tablet PO (07:51)
[2020-08-26] MEDS: Allopurinol 100 MG Tablet PO (07:51)
[2020-08-26] MEDS: Aspirin E.C. 81 MG Tablet PO (07:51)
[2020-08-26] MEDS: Lisinopril 10 MG Tablet PO (07:52)
[2020-08-26] MEDS: Insulin Lispro 100 UNIT/ML INSULN.PEN 10 UNIT SC ×3 (07:52→17:15)
[2020-08-26] MEDS: Creon 24,000 unit DR Capsule 1 CAP PO ×2 (07:52→17:12)
--- NOTE | 2020-08-26 10:28 | PN_ITS ---
Patient Problems: Active and Suspected Problems (Last Reviewed 06/10/20 @ 21:[address] Judson Massey MD) Diabetic infection of left foot (Acute) Constipation due to opioid therapy (Acute) Chronic neuropathic pain (Acute) Debility (Acute) Subjective: Patient was seen today, she relates she is doing well today. No new complaints. - Physical Exam Vitals/I&O's: Vital Signs Temp Pulse Resp BP Pulse Ox 98.0 F 64 16 135/53 H 97 08/26/20 04:56 08/26/20 04:56 08/26/20 04:56 08/26/20 04:56 08/26/20 04:56 Oxygen Delivery Method Room Air Weight: 83.007 kg Body Mass Index (BMI) 31.4 Finger Stick Blood Glucose 193 Intake and Output for Last 24 Hours 08/24/20 08/25/20 08/26/20 23:59 23:59 23:59 Intake Total 717.5 / 717.5 1540.25 / 1540.25 472.25 / 472.25 Output Total 450 / 450 Balance 717.5 / 717.5 1090.25 / 1090.25 472.25 / 472.25 General: Alert, Oriented x3, Cooperative, No apparent distress Extremities: Capillary Refill Less than 3 Seconds, - - s/p I+D left foot, with 2 open wounds to plantar aspect down to subcutantous/fascia layer, no probe to bone, cellulitis resolved, there is some serosanguineous drainage noted - less, no purulence, no abscess, no crepitus, no fluctuance, no maloder, no necrosis present - tissues viable and healing. Microbiology Past 72 Hours 08/24/20 11:05 Urine Catheter - Catheter Urine Culture - Final Culture exhibits no growth. Laboratory Results 08/25/20 10:36: POC Glucose 292 H 08/25/20 16:37: POC Glucose 130 H 08/25/20 21:09: POC Glucose 135 H 08/26/20 06:15: POC Glucose 80 Current Medications Acetaminophen (Acetaminophen 500 Mg Tablet) 1,000 mg PO Q6H PRN PRN PRN Reason: Pain Score 1-3 Last Admin: 08/26/20 07:49 Dose: 1,000 mg Documented by: Allopurinol ([facility] 100 Mg Tablet) [facility] Last Admin: 08/26/20 07:51 Dose: 100 mg Documented by: Amlodipine Besylate (Amlodipine 5 Mg Tablet) 5 mg PO DAILY@0800 [facility] Last Admin: 08/26/20 07:51 Dose: 5 mg Documented by: Aspirin (Aspirin E.C. 81 Mg Tablet) [facility] Last Admin: 08/26/20 07:51 Dose: 81 mg Documented by: Bisacodyl (Bisacodyl 10 Mg Suppository) 10 mg RC DAILY PRN PRN Reason: Constipation Calamine/Phenol (Menthol/Lanolin/Calamine/Znox 113 Gm Tube) 1 applic TOPICAL TID [facility]; Protocol Last Admin: 08/26/20 04:24 Dose: 1 applic Documented by: Carvedilol (Carvedilol 25 Mg Tablet) 25 mg PO BID@0800,1999 [facility] Last Admin: 08/26/20 07:51 Dose: 25 mg Documented by: Clopidogrel Bisulfate (Clopidogrel Bisulfate 75 Mg Tablet) 75 mg PO DAILY [facility] Last Admin: 08/26/20 04:16 Dose: 75 mg Documented by: Heparin Sodium (Beef Lung) (Heparin Pf Lock 10 Units/Ml 50 Units/5 Ml Syringe) 50 units IV UD PRN PRN Reason: PICC Line Heparin Flush Ampicillin Sodium/Sulbactam (Sodium 3 gm/ Sodium Chloride) 112 mls @ 150 mls/hr IV Q8 [facility] Stop: 08/29/20 08:00 Last Infusion: 08/26/20 07:46 Dose: Infused Documented by: Sodium Chloride () 250 mls @ 15 mls/hr IV .[id number] PRN PRN Reason: Saline Flush Last Infusion: 08/26/20 06:45 Dose: 0 mls/hr Documented by: Sodium Chloride () 250 mls @ 15 mls/hr IV .[id number] PRN PRN Reason: Additional IVPB Infusion Insulin Glargine (Insulin Glargine 100 Units/Ml Pen) 25 units SC BID [facility] Last Admin: 08/26/20 06:37 Dose: Not Given Documented by: Insulin Human Lispro (Insulin Lispro 100 Unit/Ml Insuln.Pen) 10 unit SC TIDCM [facility] Last Admin: 08/26/20 07:52 Dose: 10 u Documented by: Isosorbide Mononitrate (Isosorbide Mononitrate 60 Mg Tablet) 120 mg PO 1800 [facility] Last Admin: 08/25/20 18:04 Dose: 120 mg Documented by: Isosorbide Mononitrate (Isosorbide Mononitrate 60 Mg Tablet) 60 mg PO DAILY@0800 [facility] Last Admin: 08/26/20 07:51 Dose: 60 mg Documented by: Levothyroxine Sodium (Levothyroxine 75 Mcg Tablet) 75 mcg PO QHS [facility] Last Admin: 08/25/20 21:20 Dose: 75 mcg Documented by: Lisinopril (Lisinopril 10 Mg Tablet) 10 mg PO DAILY@0800 [facility] Last Admin: 08/26/20 07:52 Dose: 10 mg Documented by: Magnesium Hydroxide (Magnesium Hydroxide 30 Ml Udc) 30 ml PO DAILY PRN PRN Reason: Constipation Melatonin (Melatonin 3 Mg Tablet) 6 mg PO QHS [facility] Last Admin: 08/25/20 21:20 Dose: 6 mg Documented by: Metoclopramide HCl (Metoclopramide 10 Mg Tablet) 10 mg PO Q8H PRN PRN PRN Reason: NAUSEA Morphine Sulfate (Morphine 2 Mg/Ml Syringe) 2 mg IV Q3H PRN PRN PRN Reason: Pain Score 6-10 Last Admin: 08/25/20 21:14 Dose: 2 mg Documented by: Nitroglycerin (Nitroglycerin (Inpatient Use) 0.4 Mg Tab.Subl) 0.4 mg SL Q5M PRN PRN Reason: CARDIAC/CHEST PAIN Pancrelipase (Creon 24,[address] Capsule) [facility] Last Admin: 08/26/20 07:52 Dose: 1 capsule Documented by: Pantoprazole Sodium (Pantoprazole Sodium 20 Mg Tablet) 20 mg PO DAILY@0800 [facility] Last Admin: 08/26/20 07:51 Dose: 20 mg Documented by: Polyethylene Glycol (Polyethylene Glycol 3350 17 Gm Packet) 17 gm PO DAILY [facility] Last Admin: 08/26/20 04:15 Dose: 17 gm Documented by: Pravastatin Sodium (Pravastatin 40 Mg Tablet) 40 mg PO QHS [facility] Last Admin: 08/25/20 21:20 Dose: 40 mg Documented by: Senna/Docusate Sodium (Senna/Docusate Sodium 1 Tablet) 1 tablet PO BID [facility] Last Admin: 08/26/20 04:16 Dose: 1 tablet Documented by: Sodium Chloride (0.9% Saline Lock 10 Ml Syringe) 10 - 40 ml IV UD PRN PRN Reason: SALINE FLUSH Last Admin: 08/26/20 04:56 Dose: 40 ml Documented by: Sodium Chloride (0.9% Saline Lock 10 Ml Syringe) 10 - 40 ml IV UD PRN PRN Reason: Open End PICC Flush Last Admin: 08/25/20 21:14 Dose: 20 ml Documented by: Sodium Chloride (0.9 % Nacl (Sterile) Posiflush 10 Ml) 10 - 40 ml IV UD PRN PRN Reason: Port access or dressing change Tizanidine HCl (Tizanidine Hcl 2 Mg Tablet) 4 mg PO Q8H PRN PRN PRN Reason: BACK PAIN Last Admin: 08/26/20 04:12 Dose: 4 mg Documented by: Trazodone HCl (Trazodone 100 Mg Tablet) 100 mg PO QHS PRN PRN Reason: SLEEP Last Admin: 08/24/20 22:12 Dose: 100 mg Documented by: Tuberculin PPD (Tuberculin,Purif.Prot.Deriv. 50 Tu/Ml Vial) 5 tu ID [id number] Stop: 08/30/20 10:01 Venlafaxine HCl (Venlafaxine Hcl 100 Mg Tablet) 100 mg PO BID [facility] Last Admin: 08/26/20 04:16 Dose: 100 mg Documented by: Medical Necessity - Tobacco Use Smoking Status: Never smoker Tobacco Use: Non-smoker Assessment/Plan All Active Problems (Last Reviewed 06/10/20 @ 21:[address] Judson Massey MD) Diabetic infection of left foot (Acute) Abscess of left foot (Acute) Constipation due to opioid therapy (Acute) Chronic neuropathic pain (Acute) Debility (Acute) Decubitus ulcer of sacral region, stage 2 (Resolved) Left foot cellulitis Left foot ulcer Abscess left foot s/p debridement in OR 08/19/20 Charcot foot deformity left foot Diabetes with neuropathy Patient seen and examined bedside. Left foot has continued to improved after surgery. Reviewed wound and blood culture results, patient on IV antibiotics w/ ID/Dr. Webb on consult. Continue wound care daily dressing changes with 1/4 iodoform packing and silver covered by DSD. Strict nonweightbearing left lower extremity. New LEAS re-ordered for further assessment of lower extremity arterial flow. Podiatry will continue to follow.
[2020-08-26 11:01] LABS: Bedside Glucose 99 mg/dL (70-110)
[2020-08-26 13:42] VITALS: BP 151/57; PULSE 66; RESP 16; TEMP 36.6; O2SAT 98
[2020-08-26] MEDS: Morphine 2 MG/ML Syringe IV ×2 (16:18→22:43)
[2020-08-26 16:30] LABS: Bedside Glucose 110 mg/dL (70-110)
[2020-08-26] MEDS: Isosorbide Mononitrate 60 MG Tablet 120 MG PO (17:13)
[2020-08-26 19:53] VITALS: BP 160/75; PULSE 71; RESP 18; TEMP 36.6; O2SAT 95
[2020-08-26] MEDS: Pravastatin 40 MG Tablet PO (19:57)
[2020-08-26] MEDS: Levothyroxine 75 MCG Tablet PO (19:57)
[2020-08-26] MEDS: MELATONIN 3 MG TABLET 6 MG PO (19:57)
[2020-08-26] MEDS: traZODone 100 MG Tablet PO (21:59)
[2020-08-26 22:15] LABS: Bedside Glucose 187 mg/dL (70-110)
[2020-08-27 06:36] LABS: Bedside Glucose 80 mg/dL (70-110)
[2020-08-27] MEDS: tiZANidine HCl 2 MG Tablet 4 MG PO ×2 (06:45→18:08)
[2020-08-27] MEDS: Acetaminophen 500 MG Tablet 1000 MG PO (06:45)
[2020-08-27] MEDS: Polyethylene Glycol 3350 17 GM PACKET PO (06:46)
[2020-08-27] MEDS: 0.9% Saline Lock 10 ML Syringe IV ×2 (06:46→13:16)
[2020-08-27] MEDS: Senna/Docusate Sodium 1 Tablet PO ×2 (06:46→18:07)
[2020-08-27] MEDS: Clopidogrel Bisulfate 75 MG Tablet PO (06:46)
[2020-08-27] MEDS: Menthol/Lanolin/Calamine/Znox 113 GM Tube 1 APPLIC TOPICAL ×3 (06:53→20:54)
[2020-08-27 06:54] VITALS: BP 148/81; PULSE 66; RESP 16; TEMP 36.8; O2SAT 98
[2020-08-27] MEDS: Creon 24,000 unit DR Capsule 1 CAP PO ×2 (08:48→18:06)
[2020-08-27] MEDS: Carvedilol 25 MG Tablet PO ×2 (08:48→20:51)
[2020-08-27] MEDS: Aspirin E.C. 81 MG Tablet PO (08:49)
[2020-08-27] MEDS: Isosorbide Mononitrate 60 MG Tablet PO (08:49)
[2020-08-27] MEDS: amLODIPine 5 MG Tablet PO (08:49)
[2020-08-27] MEDS: Pantoprazole Sodium 20 MG Tablet PO (08:50)
[2020-08-27] MEDS: Allopurinol 100 MG Tablet PO (08:51)
[2020-08-27] MEDS: Lisinopril 10 MG Tablet PO (08:51)
[2020-08-27 11:15] LABS: Bedside Glucose 231 mg/dL (70-110)
--- NOTE | 2020-08-27 11:43 | NURSING ---
Pt continues to self transfer despite continued education. RN aware
[2020-08-27 12:48] VITALS: BP 149/82; PULSE 68; RESP 16; TEMP 37.1; O2SAT 94
[2020-08-27] MEDS: Insulin Lispro 100 UNIT/ML INSULN.PEN 10 UNIT SC ×2 (13:14→18:05)
--- NOTE | 2020-08-27 13:46 | NURSING ---
Pt asked where her Blue was and said that it did not come on her tray, this nurse was in process of hanging pt's ATB and stated that she did not know off of the top of her head but that she could look. Pt became agitated and asked I don't know why you can't just tell me. This nurse explained that she would be happy for look for her after she was finished hanging her IV. After patient care was completed this nurse looked up blue order and saw that it was supposed to come on her tray with her meal. Pt became even more agitated and stated never mind I do not want to know. This nurse explained that she had found the order and could call dietary if she would like and have them send it up for her. Pt said no, I am perfectly capable of doing it myself.
[2020-08-27 16:55] LABS: Bedside Glucose 159 mg/dL (70-110)
[2020-08-27] MEDS: Isosorbide Mononitrate 60 MG Tablet 120 MG PO (18:06)
[2020-08-27] MEDS: Pravastatin 40 MG Tablet PO (20:51)
[2020-08-27] MEDS: Levothyroxine 75 MCG Tablet PO (20:56)
[2020-08-27 22:25] LABS: Bedside Glucose 139 mg/dL (70-110)
[2020-08-27] MEDS: traZODone 100 MG Tablet PO (22:36)
[2020-08-27] MEDS: MELATONIN 3 MG TABLET 6 MG PO (22:36)
[2020-08-27] MEDS: Morphine 2 MG/ML Syringe IV (22:48)
[2020-08-28 05:00] VITALS: BP 146/49; PULSE 67; RESP 14; TEMP 36.6; O2SAT 96
[2020-08-28] MEDS: Acetaminophen 500 MG Tablet 1000 MG PO ×2 (06:01→21:20)
[2020-08-28] MEDS: Polyethylene Glycol 3350 17 GM PACKET PO (06:06)
[2020-08-28] MEDS: Clopidogrel Bisulfate 75 MG Tablet PO (06:06)
[2020-08-28] MEDS: Senna/Docusate Sodium 1 Tablet PO (06:06)
[2020-08-28] MEDS: Menthol/Lanolin/Calamine/Znox 113 GM Tube 1 APPLIC TOPICAL ×3 (06:07→20:01)
[2020-08-28 06:26] LABS: Bedside Glucose 80 mg/dL (70-110)
[2020-08-28] MEDS: Isosorbide Mononitrate 60 MG Tablet PO (07:55)
[2020-08-28] MEDS: Carvedilol 25 MG Tablet PO ×2 (07:56→20:00)
[2020-08-28] MEDS: Aspirin E.C. 81 MG Tablet PO (07:56)
[2020-08-28] MEDS: Creon 24,000 unit DR Capsule 1 CAP PO ×2 (07:56→16:51)
[2020-08-28] MEDS: Allopurinol 100 MG Tablet PO (07:56)
[2020-08-28] MEDS: Pantoprazole Sodium 20 MG Tablet PO (07:56)
[2020-08-28] MEDS: Lisinopril 10 MG Tablet PO (07:56)
[2020-08-28] MEDS: amLODIPine 5 MG Tablet PO (07:56)
[2020-08-28] MEDS: Insulin Lispro 100 UNIT/ML INSULN.PEN 10 UNIT SC ×2 (13:28→16:55)
[2020-08-28 14:46] VITALS: BP 153/65; PULSE 70; RESP 14; TEMP 36.8; O2SAT 98
[2020-08-28 14:51] LABS: Bedside Glucose 247 mg/dL (70-110)
[2020-08-28 16:31] LABS: Bedside Glucose 197 mg/dL (70-110)
[2020-08-28] MEDS: Isosorbide Mononitrate 60 MG Tablet 120 MG PO (16:59)
[2020-08-28 19:30] VITALS: PULSE 76; RESP 16; O2SAT 97
[2020-08-28] MEDS: MELATONIN 3 MG TABLET 6 MG PO (20:00)
[2020-08-28] MEDS: Pravastatin 40 MG Tablet PO (20:00)
[2020-08-28] MEDS: Levothyroxine 75 MCG Tablet PO (20:01)
[2020-08-28 21:16] LABS: Bedside Glucose 156 mg/dL (70-110)
[2020-08-28] MEDS: traZODone 100 MG Tablet PO (21:20)
[2020-08-28] MEDS: tiZANidine HCl 2 MG Tablet 4 MG PO (21:20)
[2020-08-28] MEDS: 0.9% Saline Lock 10 ML Syringe IV (21:21)
[2020-08-29 05:00] VITALS: BP 167/67; PULSE 75; RESP 16; TEMP 37.1; O2SAT 97
[2020-08-29 06:31] LABS: Bedside Glucose 84 mg/dL (70-110)
[2020-08-29] MEDS: Clopidogrel Bisulfate 75 MG Tablet PO (06:40)
[2020-08-29] MEDS: Senna/Docusate Sodium 1 Tablet PO ×2 (06:40→17:59)
[2020-08-29] MEDS: Polyethylene Glycol 3350 17 GM PACKET PO (06:40)
[2020-08-29] MEDS: Menthol/Lanolin/Calamine/Znox 113 GM Tube 1 APPLIC TOPICAL ×3 (06:45→21:46)
[2020-08-29] MEDS: Acetaminophen 500 MG Tablet 1000 MG PO ×2 (06:49→18:28)
[2020-08-29] MEDS: 0.9% Saline Lock 10 ML Syringe IV ×3 (06:51→10:17)
[2020-08-29] MEDS: Isosorbide Mononitrate 60 MG Tablet PO (08:10)
[2020-08-29] MEDS: Creon 24,000 unit DR Capsule 1 CAP PO ×2 (08:11→17:57)
[2020-08-29] MEDS: amLODIPine 5 MG Tablet PO (08:11)
[2020-08-29] MEDS: Carvedilol 25 MG Tablet PO ×2 (08:11→21:45)
[2020-08-29] MEDS: Aspirin E.C. 81 MG Tablet PO (08:11)
[2020-08-29] MEDS: Lisinopril 10 MG Tablet PO (08:11)
[2020-08-29] MEDS: Pantoprazole Sodium 20 MG Tablet PO (08:11)
[2020-08-29] MEDS: Allopurinol 100 MG Tablet PO (08:12)
[2020-08-29 08:15] VITALS: BP 172/64; PULSE 77
[2020-08-29 10:15] VITALS: PULSE 95; RESP 18; O2SAT 98
[2020-08-29] MEDS: Morphine 2 MG/ML Syringe IV (10:16)
[2020-08-29 10:45] LABS: Bedside Glucose 230 mg/dL (70-110)
--- NOTE | 2020-08-29 11:26 | NURSING ---
GRICELDA KUMARI/WOUND NURSE CHANGED PT FOOT DRESSING.
[2020-08-29] MEDS: Insulin Lispro 100 UNIT/ML INSULN.PEN 10 UNIT SC ×2 (11:51→18:10)
--- NOTE | 2020-08-29 12:23 | NURSING ---
wound photo: left foot
[2020-08-29 14:09] VITALS: BP 171/70; PULSE 78; RESP 16; TEMP 36.1; O2SAT 95
[2020-08-29 16:21] LABS: Bedside Glucose 129 mg/dL (70-110)
[2020-08-29] MEDS: Isosorbide Mononitrate 60 MG Tablet 120 MG PO (17:59)
[2020-08-29 21:16] LABS: Bedside Glucose 113 mg/dL (70-110)
[2020-08-29] MEDS: MELATONIN 3 MG TABLET 6 MG PO (21:45)
[2020-08-29] MEDS: Pravastatin 40 MG Tablet PO (21:45)
[2020-08-29] MEDS: Levothyroxine 75 MCG Tablet PO (21:45)
[2020-08-30] MEDS: traZODone 100 MG Tablet PO ×2 (00:31→23:29)
[2020-08-30 05:00] VITALS: BP 123/54; PULSE 86; RESP 18; TEMP 36.7; O2SAT 97
[2020-08-30] MEDS: Acetaminophen 500 MG Tablet 1000 MG PO (05:35)
[2020-08-30] MEDS: Polyethylene Glycol 3350 17 GM PACKET PO (05:35)
[2020-08-30] MEDS: Clopidogrel Bisulfate 75 MG Tablet PO (05:36)
[2020-08-30] MEDS: Celecoxib 200 MG Capsule PO (05:36)
[2020-08-30] MEDS: Menthol/Lanolin/Calamine/Znox 113 GM Tube 1 APPLIC TOPICAL ×3 (05:39→22:59)
[2020-08-30 06:02] LABS: Absolute Lymphocyte Count 2.87 X10^3/uL (0.83-4.51); Basophil# 0.04 X10^3/uL; Basophil% 0.5 % (0-1); Eosinophil# 0.23 X10^3/uL; Hematocrit 39.1 % (37-47); Hemoglobin 12.6 g/dL (12.0-15.0); Lymphocyte # 2.87 X10^3/ul (4.0); Lymphocyte % 37.1 % (19-41); Mean Corp Hgb Conc 32.2 g/dL (32-36); Mean Corpuscular Hgb 29.2 pg (27.0-32.0); Mean Corpuscular Volume 90.5 fL (81-99); Mean Platelet Vol. 9.2 fl (6.2-12.0); Monocyte# 0.55 X10^3/uL; Monocyte% 7.1 % (0-10); NRBC Flagged by Analyzer 0 % (0-5); Neutrophil # 4.02 X10^3/uL (2.7-7.7); Platelet Count 206 K/mm3 (150-450); RBC Distribution Width CV 14.6 % (11.6-14.6); RBC Distribution Width SD 47.4 fl (35.1-43.9); Red Blood Count 4.32 M/mm3 (4.2-5.4); White Blood Count 7.7 K/mm3 (4.4-11.0)
[2020-08-30 06:34] LABS: Anion Gap 7 (5-15); BUN 29 mg/dL (7-18); BUN/Creat Ratio 27.1 RATIO (10-20); Calcium,Total 8.9 mg/dL (8.5-10.1); Chloride 113 mmol/L (98-107); Creatinine, Serum 1.07 mg/dL (0.55-1.02); EST Glomerular Filtration Rate 53 mL/min (>60); Est Glom Filt Rate - Afr Amer 65 mL/min (>60); Estimated Creatinine Clearance 40.44 ml/min; Glucose 82 mg/dL (74-106); Potassium 4.3 mmol/L (3.5-5.1); Sodium Level 143 mmol/L (136-145)
[2020-08-30 06:50] LABS: Bedside Glucose 88 mg/dL (70-110)
[2020-08-30] MEDS: Carvedilol 25 MG Tablet PO ×2 (08:44→22:59)
[2020-08-30] MEDS: Creon 24,000 unit DR Capsule 1 CAP PO ×2 (08:45→17:42)
[2020-08-30] MEDS: Lisinopril 10 MG Tablet PO (08:46)
[2020-08-30] MEDS: Aspirin E.C. 81 MG Tablet PO (08:46)
[2020-08-30] MEDS: Isosorbide Mononitrate 60 MG Tablet PO (08:46)
[2020-08-30] MEDS: amLODIPine 5 MG Tablet PO (08:46)
[2020-08-30] MEDS: Pantoprazole Sodium 20 MG Tablet PO (08:46)
[2020-08-30] MEDS: Allopurinol 100 MG Tablet PO (08:47)
[2020-08-30] MEDS: morphine (oral solution) 10MG/0.5ML Syringe 10 MG SL/PO ×2 (08:52→23:01)
[2020-08-30 08:56] VITALS: BP 164/64; PULSE 68
--- NOTE | 2020-08-30 09:24 | NURSING ---
PER ORDERS/RN ANY MEDS WITH CALCIUM IS TO BE HELD FOR 48 HOURS DUE TO A BONE DENSITY TEST SCHEDULED FOR SATURDAY.
[2020-08-30 10:41] LABS: Bedside Glucose 174 mg/dL (70-110)
[2020-08-30] MEDS: Tuberculin,Purif.prot.deriv. 50 TU/ML Vial 5 ML ID (11:25)
[2020-08-30] MEDS: Insulin Lispro 100 UNIT/ML INSULN.PEN 10 UNIT SC ×2 (11:36→17:44)
--- NOTE | 2020-08-30 13:44 | NURSING ---
NOTIFIED RN THAT MARIA ELENA HAS 200 MG OF CALCIUM. RN TO PUT A HOLD ON IT FOR DIETARY.
[2020-08-30 13:59] VITALS: BP 152/68; PULSE 69; RESP 18; TEMP 36.2; O2SAT 98
--- NOTE | 2020-08-30 14:33 | NURSING ---
GRICELDA KUMARI/WOUND NURSE CHANGED PT DRESSING TO LEFT FOOT.
--- NOTE | 2020-08-30 14:35 | NURSING ---
Bone density currently scheduled at 1430.
[2020-08-30 16:41] LABS: Bedside Glucose 96 mg/dL (70-110)
--- NOTE | 2020-08-30 17:09 | NURSING ---
PT REQUESTED A MEPILEX TO COCCYX DUE TO SHEARING. PT STATED I DO IT AT HOME WHEN MY BOTTOM GETS SORE. RN AWARE.
[2020-08-30] MEDS: Isosorbide Mononitrate 60 MG Tablet 120 MG PO (17:42)
--- NOTE | 2020-08-30 17:59 | NURSING ---
updated at visit
[2020-08-30] MEDS: 0.9% Saline Lock 10 ML Syringe IV (18:14)
[2020-08-30 21:26] LABS: Bedside Glucose 139 mg/dL (70-110)
[2020-08-30] MEDS: MELATONIN 3 MG TABLET 6 MG PO (22:59)
[2020-08-30] MEDS: Pravastatin 40 MG Tablet PO (23:00)
[2020-08-30] MEDS: Levothyroxine 75 MCG Tablet PO (23:00)
[2020-08-30 23:05] VITALS: BP 157/57; PULSE 78; O2SAT 97
[2020-08-31 05:00] VITALS: BP 123/69; PULSE 71; RESP 18; TEMP 36.6; O2SAT 97
[2020-08-31 06:30] LABS: Bedside Glucose 99 mg/dL (70-110)
[2020-08-31] MEDS: Menthol/Lanolin/Calamine/Znox 113 GM Tube 1 APPLIC TOPICAL ×3 (06:42→20:45)
[2020-08-31] MEDS: Celecoxib 200 MG Capsule PO (06:42)
[2020-08-31] MEDS: Clopidogrel Bisulfate 75 MG Tablet PO (06:42)
[2020-08-31] MEDS: Acetaminophen 500 MG Tablet 1000 MG PO (06:53)
[2020-08-31] MEDS: amLODIPine 5 MG Tablet PO (08:48)
[2020-08-31] MEDS: Creon 24,000 unit DR Capsule 1 CAP PO ×2 (08:48→17:45)
[2020-08-31] MEDS: Aspirin E.C. 81 MG Tablet PO (08:48)
[2020-08-31] MEDS: Allopurinol 100 MG Tablet PO (08:48)
[2020-08-31] MEDS: Carvedilol 25 MG Tablet PO ×2 (08:48→20:30)
[2020-08-31] MEDS: Lisinopril 10 MG Tablet PO (08:49)
[2020-08-31] MEDS: Pantoprazole Sodium 20 MG Tablet PO (08:49)
[2020-08-31] MEDS: Isosorbide Mononitrate 60 MG Tablet PO (08:50)
[2020-08-31 10:00] VITALS: PULSE 58; O2SAT 93
[2020-08-31 10:56] LABS: Bedside Glucose 252 mg/dL (70-110)
[2020-08-31] MEDS: Insulin Lispro 100 UNIT/ML INSULN.PEN 10 UNIT SC (13:13)
--- NOTE | 2020-08-31 13:30 | PN_ITS ---
Patient Problems: Active and Suspected Problems (Last Reviewed 06/10/20 @ 21:[address] Judson Massey MD) Diabetic infection of left foot (Acute) Constipation due to opioid therapy (Acute) Chronic neuropathic pain (Acute) Debility (Acute) Subjective: This patient was seen bedside this afternoon s/p I & D and ulcers plantar foot. She denies fever, chills, nausea, vomiting. Her pain is now intermittent and rare. She has a charcot non acute deformity. - Physical Exam Vitals/I&O's: Vital Signs Temp Pulse Resp BP Pulse Ox 97.8 F 71 18 123/69 H 97 08/31/20 05:00 08/31/20 05:00 08/31/20 05:00 08/31/20 05:00 08/31/20 05:00 Oxygen Delivery Method Room Air Weight: 79.152 kg Body Mass Index (BMI) 31.4 Finger Stick Blood Glucose 193 Intake and Output for Last 24 Hours 08/29/20 08/30/20 08/31/20 23:59 23:59 23:59 Intake Total 892 / 892 600 / 600 480 / 480 Balance 892 / 892 600 / 600 480 / 480 General: Alert, Oriented x3, Cooperative HEENT: Atraumatic Extremities: No cyanosis, Capillary Refill Less than 3 Seconds, No Calf Tenderness, Diminished Peripheral Pulses, Edema - scant, - - rockerbottom foot stable Skin: Ulcer/ Wound - no purulence, no erythema, no streaking, no odor, no infection. plantar sutures intact. Central plantar foot ulcer 0.8 x 1.2 x 0.8 cm and plantar central proximal foot ulcer 0.8 x 1.6 x 0.8 cm with additional tunneling at 9 o'clock position with 0.8 cm. granular and partial hematogenous base., - - no necrosis or probe to bone. Musculoskeletal: No Tenderness to Palpation of Joints or Extremities, Muscle Wasting, - - compartments soft to palpate Neurological: - - lack of epicritic sensation consistent with neuropathy Psych/Mental Status: Normal Affect, Appropriate Laboratory Results 08/30/20 16:13: POC Glucose 96 08/30/20 21:03: POC Glucose 139 H 08/31/20 06:26: POC Glucose 99 08/31/20 10:52: POC Glucose 252 H Current Medications Acetaminophen (Acetaminophen 500 Mg Tablet) 1,000 mg PO Q6H PRN PRN PRN Reason: Pain Score 1-3 Last Admin: 08/31/20 06:53 Dose: 1,000 mg Documented by: Allopurinol ([facility]ol 100 Mg Tablet) [facility] Last Admin: 08/31/20 08:48 Dose: 100 mg Documented by: Amlodipine Besylate (Amlodipine 5 Mg Tablet) 5 mg PO DAILY@0800 [facility] Last Admin: 08/31/20 08:48 Dose: 5 mg Documented by: Aspirin (Aspirin E.C. 81 Mg Tablet) [facility] Last Admin: 08/31/20 08:48 Dose: 81 mg Documented by: Bisacodyl (Bisacodyl 10 Mg Suppository) 10 mg RC DAILY PRN PRN Reason: Constipation Calamine/Phenol (Menthol/Lanolin/Calamine/Znox 113 Gm Tube) 1 applic TOPICAL T ID [facility]; Protocol Last Admin: 08/31/20 06:42 Dose: 1 applic Documented by: Carvedilol (Carvedilol 25 Mg Tablet) 25 mg PO BID@08,1999 [facility] Last Admin: 08/31/20 08:48 Dose: 25 mg Documented by: Celecoxib (Celecoxib 200 Mg Capsule) 200 mg PO DAILY [facility] Last Admin: 08/31/20 06:42 Dose: 200 mg Documented by: Clopidogrel Bisulfate (Clopidogrel Bisulfate 75 Mg Tablet) 75 mg PO DAILY [facility] Last Admin: 08/31/20 06:42 Dose: 75 mg Documented by: Heparin Sodium (Beef Lung) (Heparin Pf Lock 10 Units/Ml 50 Units/5 Ml Syringe) 50 units IV UD PRN PRN Reason: PICC Line Heparin Flush Sodium Chloride () 250 mls @ 15 mls/hr IV .[id number] PRN PRN Reason: Saline Flush Last Infusion: 08/29/20 06:42 Dose: 0 mls/hr Documented by: Sodium Chloride () 250 mls @ 15 mls/hr IV .[id number] PRN PRN Reason: Additional IVPB Infusion Insulin Glargine (Insulin Glargine 100 Units/Ml Pen) 25 units SC BID [facility] Last Admin: 08/31/20 08:47 Dose: 25 u Documented by: Insulin Human Lispro (Insulin Lispro 100 Unit/Ml Insuln.Pen) 10 unit SC TIDCM [facility] Last Admin: 08/31/20 13:13 Dose: 10 u Documented by: Isosorbide Mononitrate (Isosorbide Mononitrate 60 Mg Tablet) 120 mg PO 1800 [facility] Last Admin: 08/30/20 17:42 Dose: 120 mg Documented by: Isosorbide Mononitrate (Isosorbide Mononitrate 60 Mg Tablet) 60 mg PO DAILY@0800 [facility] Last Admin: 08/31/20 08:50 Dose: 60 mg Documented by: Levothyroxine Sodium (Levothyroxine 75 Mcg Tablet) 75 mcg PO QHS [facility] Last Admin: 08/30/20 23:00 Dose: 75 mcg Documented by: Lisinopril (Lisinopril 10 Mg Tablet) 10 mg PO DAILY@0800 [facility] Last Admin: 08/31/20 08:49 Dose: 10 mg Documented by: Magnesium Hydroxide (Magnesium Hydroxide 30 Ml Udc) 30 ml PO DAILY PRN PRN Reason: Constipation Melatonin (Melatonin 3 Mg Tablet) 6 mg PO QHS [facility] Last Admin: 08/30/20 22:59 Dose: 6 mg Documented by: Metoclopramide HCl (Metoclopramide 10 Mg Tablet) 10 mg PO Q8H PRN PRN PRN Reason: NAUSEA Morphine Sulfate (Morphine (Oral Solution) 10mg/0.5ml Syringe) 10 mg SL/PO Q2H PRN PRN PRN Reason: Pain Score 6-10 Last Admin: 08/30/20 23:01 Dose: 10 mg Documented by: Nitroglycerin (Nitroglycerin (Inpatient Use) 0.4 Mg Tab.Subl) 0.4 mg SL Q5M PRN PRN Reason: CARDIAC/CHEST PAIN Nystatin (Nystatin Powder 15gm Bottle) 1 applic TOPICAL 0600,2200 [facility]; Protocol Pancrelipase (Creon 24,[address] Capsule) 1 capsule PO BIDCM [facility] Last Admin: 08/31/20 08:48 Dose: 1 capsule Documented by: Pantoprazole Sodium (Pantoprazole Sodium 20 Mg Tablet) 20 mg PO DAILY@0800 [facility] Last Admin: 08/31/20 08:49 Dose: 20 mg Documented by: Polyethylene Glycol (Polyethylene Glycol 3350 17 Gm Packet) 17 gm PO DAILY [facility] Last Admin: 08/31/20 06:43 Dose: Not Given Documented by: Pravastatin Sodium (Pravastatin 40 Mg Tablet) 40 mg PO QHS [facility] Last Admin: 08/30/20 23:00 Dose: 40 mg Documented by: Senna/Docusate Sodium (Senna/Docusate Sodium 1 Tablet) 1 tablet PO BID [facility] Last Admin: 08/31/20 06:43 Dose: Not Given Documented by: Sodium Chloride (0.9% Saline Lock 10 Ml Syringe) 10 - 40 ml IV UD PRN PRN Reason: SALINE FLUSH Last Admin: 08/30/20 18:14 Dose: 20 ml Documented by: Sodium Chloride (0.9% Saline Lock 10 Ml Syringe) 10 - 40 ml IV UD PRN PRN Reason: Open End PICC Flush Last Admin: 08/25/20 21:14 Dose: 20 ml Documented by: Sodium Chloride (0.9 % Nacl (Sterile) Posiflush 10 Ml) 10 - 40 ml IV UD PRN PRN Reason: Port access or dressing change Tizanidine HCl (Tizanidine Hcl 2 Mg Tablet) 4 mg PO Q8H PRN PRN PRN Reason: BACK PAIN Last Admin: 08/28/20 21:20 Dose: 4 mg Documented by: Trazodone HCl (Trazodone 100 Mg Tablet) 100 mg PO QHS PRN PRN Reason: SLEEP Last Admin: 08/30/20 23:29 Dose: 100 mg Documented by: Venlafaxine HCl (Venlafaxine Hcl 100 Mg Tablet) 100 mg PO BID [facility] Last Admin: 08/31/20 06:42 Dose: 100 mg Documented by: Medical Necessity - Tobacco Use Smoking Status: Never smoker Tobacco Use: Non-smoker Assessment/Plan All Active Problems (Last Reviewed 06/10/20 @ 21:[address] Judson Massey MD) Diabetic infection of left foot (Acute) Abscess of left foot (Acute) Constipation due to opioid therapy (Acute) Chronic neuropathic pain (Acute) Debility (Acute) Decubitus ulcer of sacral region, stage 2 (Resolved) Left foot cellulitis resolved Left foot ulcer Abscess left foot s/p debridement in OR 08/19/20 Charcot foot deformity left foot Diabetes with neuropathy Patient seen and examined bedside. Left foot has continued to improved after surgery. Reviewed wound and blood culture results, patient on IV antibiotics w/ ID/Dr. Webb on consult. Continue wound care daily dressing changes with 1/4 iodoform packing and silver covered by DSD. Selective debridement performed with sterile medical scissor to selectively debrided non viable tissue, biofilm, fibrous tissue, and slough. Minimal hematogenous drainage was noted and pressure was applied to maintain hemostasis. Verbal consent was obtained prior to the debridement and she tolerated this well without local anesthetic due to her neuropathy status. Strict nonweightbearing left lower extremity. New LEAS re-ordered for further assessment of lower extremity arterial flow. Results include left biphasic waveforms, JOSE E 0.81, TBI 0.73. It is noted she has non compressible vessels. Given her delayed healing status, prior amputation, and recurrent ulcers I recommend a vascular surgery consult for while she is in the TCU versus on an outpatient basis. To maintain non weightbearing status with assistive device. Continue nutritional supplements and proper glycemic control to optimize healing. Podiatry will continue to follow. Please call if questions. Ivanna Magana DPM, [facility] [phone]
--- NOTE | 2020-08-31 14:09 | CASEMGMT ---
Social Work IDT met with patient and for care plan meeting. Discussed patient's progress in therapy and nursing. Pt has daily dressing changes. and pt will begin teaching from nursing in preparation for DC. Pt remains NWBS on left foot. Explained Medicare benefit and to contact secondary insurance to ensure copay coverage. However, pt anticipates DC by day 20. Pt will DC home with nursing HHC and Palliative services. SW to continue to follow. Rae Ruiz, PLASMA TABLE OPERATOR TEXTILE DESIGNER
[2020-08-31 14:20] VITALS: BP 121/48; PULSE 67; RESP 17; TEMP 36.2; O2SAT 96
[2020-08-31] MEDS: 0.9% Saline Lock 10 ML Syringe IV (14:31)
--- NOTE | 2020-08-31 15:50 | NURSING ---
Dr. Magana in today to assess pt, dressing changed by wound nurse, N.O. nystatin red rash area under breasts, needs educated on dressing change.
[2020-08-31 16:25] LABS: Bedside Glucose 78 mg/dL (70-110)
--- NOTE | 2020-08-31 17:10 | CHAPLAIN ---
Type of Pastoral Visit ___ Initial Visit ___ Follow-up Visit ___ On-call Visit ___ General Patient Visit ___ Spiritual Assessment ___ Family Conference ___ Bereavement ___ Rapid Response ___ Code Blue ___ Other (describe below) Pastoral Care Referral From ___ Patient ___ Family ___ Nurse ___ Physician ___ Electric Meter Installer Helper ___ Party Plan Selling Distributor ___ Other (describe below) Sacrament/Intervention ___ Active listening ___ Anointing ___ Samaritan ___ Bereavement ___ Communion ___ Sharron exploration ___ ___ Life review ___ Prayer ___ Reconciliation ___ Sacrament of Sick ___ Supportive presence ___ Wedding ___ Other (describe below) Pastoral Comments patient was on the phone when visit attempted
[2020-08-31] MEDS: Senna/Docusate Sodium 1 Tablet PO (17:46)
[2020-08-31] MEDS: Isosorbide Mononitrate 60 MG Tablet 120 MG PO (18:00)
[2020-08-31 18:01] LABS: Bedside Glucose 64 mg/dL (70-110)
[2020-08-31 18:02] VITALS: BP 153/61; PULSE 72
[2020-08-31 18:50] LABS: Bedside Glucose 203 mg/dL (70-110)
[2020-08-31] MEDS: morphine (oral solution) 10MG/0.5ML Syringe 10 MG SL/PO (20:28)
[2020-08-31] MEDS: Levothyroxine 75 MCG Tablet PO (20:30)
[2020-08-31] MEDS: Pravastatin 40 MG Tablet PO (20:31)
[2020-08-31] MEDS: MELATONIN 3 MG TABLET 6 MG PO (20:31)
[2020-08-31] MEDS: Nystatin Powder 15gm Bottle 1 APPLIC TOPICAL (20:36)
[2020-08-31 21:11] LABS: Bedside Glucose 179 mg/dL (70-110)
[2020-08-31] MEDS: traZODone 100 MG Tablet PO (22:56)
--- NOTE | 2020-08-31 22:58 | NURSING ---
Patient is c/o burning under bilateral breast and leann area due to rash. Patient has nystatin powder ordered but states, it sandoval. Patients states nystatin cream did not work before the powder. This nurse did assess bilateral breast right breast redness and rash noted. Patient states she has something at home that she uses will get to get the name of the cream.
[2020-09-01 05:00] VITALS: BP 116/56; PULSE 60; RESP 16; TEMP 36.7; O2SAT 96
[2020-09-01 06:31] LABS: Bedside Glucose 99 mg/dL (70-110)
[2020-09-01] MEDS: Senna/Docusate Sodium 1 Tablet PO ×2 (06:49→17:16)
[2020-09-01] MEDS: Acetaminophen 500 MG Tablet 1000 MG PO (06:49)
[2020-09-01] MEDS: Clopidogrel Bisulfate 75 MG Tablet PO (06:50)
[2020-09-01] MEDS: Menthol/Lanolin/Calamine/Znox 113 GM Tube 1 APPLIC TOPICAL ×2 (06:50→14:28)
[2020-09-01] MEDS: Celecoxib 200 MG Capsule PO (06:50)
[2020-09-01] MEDS: Nystatin Powder 15gm Bottle 1 APPLIC TOPICAL ×2 (06:51→22:01)
[2020-09-01] MEDS: 0.9% Saline Lock 10 ML Syringe IV ×2 (06:55→17:08)
[2020-09-01] MEDS: Creon 24,000 unit DR Capsule 1 CAP PO ×2 (08:46→17:13)
[2020-09-01] MEDS: Carvedilol 25 MG Tablet PO ×2 (08:46→22:00)
[2020-09-01] MEDS: Aspirin E.C. 81 MG Tablet PO (08:46)
[2020-09-01] MEDS: Isosorbide Mononitrate 60 MG Tablet PO (08:46)
[2020-09-01] MEDS: Pantoprazole Sodium 20 MG Tablet PO (08:47)
[2020-09-01] MEDS: Lisinopril 10 MG Tablet PO (08:47)
[2020-09-01] MEDS: amLODIPine 5 MG Tablet PO (08:47)
[2020-09-01] MEDS: Allopurinol 100 MG Tablet PO (08:48)
[2020-09-01 08:53] VITALS: BP 129/54; PULSE 67
--- NOTE | 2020-09-01 09:31 | MDS.RN ---
Information for the mds was obtained from review of the clinical record, interview of resident, staff, and direct observation of resident's care.
[2020-09-01 10:55] LABS: Bedside Glucose 217 mg/dL (70-110)
[2020-09-01] MEDS: Insulin Lispro 100 UNIT/ML INSULN.PEN 10 UNIT SC (12:14)
[2020-09-01 13:36] VITALS: BP 149/52; PULSE 62; RESP 16; TEMP 36.8; O2SAT 97
--- NOTE | 2020-09-01 14:30 | NURSING ---
PT STATED SHE FELT LIKE HER BLOOD SUGAR WAS DROPPING. B.S 63. OJ AND PEANUT BUTTER GIVEN. WILL RECHECK. RN AWARE
[2020-09-01 14:31] LABS: Bedside Glucose 63 mg/dL (70-110)
[2020-09-01 14:56] LABS: Bedside Glucose 94 mg/dL (70-110)
[2020-09-01 16:36] LABS: Bedside Glucose 84 mg/dL (70-110)
--- NOTE | 2020-09-01 17:03 | NURSING ---
PT BLOOD SUGAR AT SUPPER WAS 84. CRANBERRY JUICE GIVEN.WILL CONTINUE TO MONITOR. GRICELDA KUMARI/WOUND NURSE CHANGED PT DRESSING TO FOOT.
[2020-09-01] MEDS: Juven (unflavored) Packet 1 PACKET PO (17:08)
[2020-09-01] MEDS: Isosorbide Mononitrate 60 MG Tablet 120 MG PO (17:16)
[2020-09-01] MEDS: morphine (oral solution) 10MG/0.5ML Syringe 10 MG SL/PO (21:57)
[2020-09-01] MEDS: Pravastatin 40 MG Tablet PO (21:58)
[2020-09-01] MEDS: Levothyroxine 75 MCG Tablet PO (21:59)
[2020-09-01 22:00] VITALS: PULSE 58; RESP 16; O2SAT 96
[2020-09-01] MEDS: MELATONIN 3 MG TABLET 6 MG PO (22:00)
[2020-09-01 22:10] LABS: Bedside Glucose 156 mg/dL (70-110)
[2020-09-01] MEDS: traZODone 100 MG Tablet PO (22:35)
[2020-09-02] MEDS: tiZANidine HCl 2 MG Tablet 4 MG PO (02:23)
[2020-09-02] MEDS: Acetaminophen 500 MG Tablet 1000 MG PO (06:30)
[2020-09-02] MEDS: Clopidogrel Bisulfate 75 MG Tablet PO (06:30)
[2020-09-02] MEDS: Senna/Docusate Sodium 1 Tablet PO ×2 (06:30→17:55)
[2020-09-02] MEDS: Celecoxib 200 MG Capsule PO (06:30)
[2020-09-02] MEDS: 0.9% Saline Lock 10 ML Syringe IV ×2 (06:32→09:15)
[2020-09-02] MEDS: Menthol/Lanolin/Calamine/Znox 113 GM Tube 1 APPLIC TOPICAL ×3 (06:32→21:40)
[2020-09-02] MEDS: Nystatin Powder 15gm Bottle 1 APPLIC TOPICAL ×2 (06:32→21:40)
[2020-09-02] MEDS: Polyethylene Glycol 3350 17 GM PACKET PO (06:33)
[2020-09-02 06:46] LABS: Bedside Glucose 97 mg/dL (70-110)
[2020-09-02] MEDS: Lisinopril 10 MG Tablet PO (09:06)
[2020-09-02] MEDS: amLODIPine 5 MG Tablet PO (09:06)
[2020-09-02] MEDS: Aspirin E.C. 81 MG Tablet PO (09:06)
[2020-09-02] MEDS: Allopurinol 100 MG Tablet PO (09:06)
[2020-09-02] MEDS: Juven (unflavored) Packet 1 PACKET PO ×2 (09:06→16:48)
[2020-09-02] MEDS: Creon 24,000 unit DR Capsule 1 CAP PO ×2 (09:06→16:48)
[2020-09-02] MEDS: Carvedilol 25 MG Tablet PO ×2 (09:07→21:34)
[2020-09-02] MEDS: Isosorbide Mononitrate 60 MG Tablet PO (09:07)
[2020-09-02] MEDS: Pantoprazole Sodium 20 MG Tablet PO (09:08)
[2020-09-02 10:00] VITALS: PULSE 72; O2SAT 93
[2020-09-02 10:55] LABS: Bedside Glucose 363 mg/dL (70-110)
[2020-09-02] MEDS: Insulin Lispro 100 UNIT/ML INSULN.PEN 10 UNIT SC (11:44)
--- NOTE | 2020-09-02 12:59 | NS ---
Blue held for bone density testing- was previously ordered w/ diet order. Blue now ordered BID on JUL. Called Res- Res confirmed Blue okay to be provided BID from nursing instead of from kitchen. Michael Naqvi MS, RDN, LD
[2020-09-02 14:00] VITALS: BP 147/63; PULSE 61; RESP 16; TEMP 37; O2SAT 97
[2020-09-02] MEDS: morphine (oral solution) 10MG/0.5ML Syringe 10 MG SL/PO ×2 (16:43→21:45)
[2020-09-02 16:45] LABS: Bedside Glucose 93 mg/dL (70-110)
[2020-09-02] MEDS: Isosorbide Mononitrate 60 MG Tablet 120 MG PO (17:55)
--- NOTE | 2020-09-02 18:11 | NURSING ---
home medications from lock box sent home with
--- NOTE | 2020-09-02 18:28 | NURSING ---
PICC dressing changed per sterile procedure per order, good blood return noted, flushes easily, pt tolerated well
[2020-09-02] MEDS: Levothyroxine 75 MCG Tablet PO (21:34)
[2020-09-02] MEDS: Pravastatin 40 MG Tablet PO (21:34)
[2020-09-02] MEDS: MELATONIN 3 MG TABLET 6 MG PO (21:34)
[2020-09-02 21:46] LABS: Bedside Glucose 269 mg/dL (70-110)
[2020-09-02] MEDS: traZODone 100 MG Tablet PO (23:39)
[2020-09-03] MEDS: Hydrocortisone 2.5% Crm 1 APPLIC TOPICAL (03:36)
[2020-09-03 05:00] VITALS: BP 136/52; PULSE 66; RESP 16; TEMP 36.1; O2SAT 98
[2020-09-03] MEDS: Celecoxib 200 MG Capsule PO (06:40)
[2020-09-03] MEDS: Senna/Docusate Sodium 1 Tablet PO ×2 (06:40→17:32)
[2020-09-03] MEDS: Menthol/Lanolin/Calamine/Znox 113 GM Tube 1 APPLIC TOPICAL ×3 (06:40→20:59)
[2020-09-03] MEDS: Clopidogrel Bisulfate 75 MG Tablet PO (06:40)
[2020-09-03] MEDS: Polyethylene Glycol 3350 17 GM PACKET PO (06:40)
[2020-09-03] MEDS: Nystatin Powder 15gm Bottle 1 APPLIC TOPICAL ×2 (06:40→20:59)
[2020-09-03 06:45] LABS: Bedside Glucose 129 mg/dL (70-110)
[2020-09-03] MEDS: 0.9% Saline Lock 10 ML Syringe IV ×2 (06:48→18:17)
[2020-09-03] MEDS: Creon 24,000 unit DR Capsule 1 CAP PO ×2 (08:29→17:32)
[2020-09-03] MEDS: Aspirin E.C. 81 MG Tablet PO (08:29)
[2020-09-03] MEDS: Carvedilol 25 MG Tablet PO ×2 (08:29→21:03)
[2020-09-03] MEDS: Isosorbide Mononitrate 60 MG Tablet PO (08:30)
[2020-09-03] MEDS: amLODIPine 5 MG Tablet PO (08:31)
[2020-09-03] MEDS: Lisinopril 10 MG Tablet PO (08:32)
[2020-09-03] MEDS: Insulin Lispro 100 UNIT/ML INSULN.PEN 10 UNIT SC ×3 (08:32→17:32)
[2020-09-03] MEDS: Allopurinol 100 MG Tablet PO (08:32)
[2020-09-03] MEDS: Pantoprazole Sodium 20 MG Tablet PO (08:32)
[2020-09-03] MEDS: Juven (unflavored) Packet 1 PACKET PO ×2 (08:36→17:32)
--- NOTE | 2020-09-03 11:23 | PCM.PROGNOTE ---
Patient Problems: Active and Suspected Problems (Last Reviewed 06/10/20 @ 21:[address] Judson Massey MD) Diabetic infection of left foot (Acute) Constipation due to opioid therapy (Acute) Chronic neuropathic pain (Acute) Debility (Acute) Subjective: This patient was seen bedside this afternoon s/p I & D and ulcers plantar foot. She denies fever, chills, nausea, vomiting. Her pain is rare and controlled. She has a charcot non acute deformity. She had arterial doppler completed. She has a new complaint today of a right heel sore or blister that the nurse noticed recently. She denies trauma. She thinks it may have occurred while laying in bed. 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 She denies known drainage or redness. She denies pain to the site. - Physical Exam Vitals/I&O's: Vital Signs Temp Pulse Resp BP Pulse Ox 97.0 F L 66 16 136/52 H 98 09/03/20 05:00 09/03/20 05:00 09/03/20 05:00 09/03/20 05:00 09/03/20 05:00 Oxygen Delivery Method Room Air Weight: 79.152 kg Body Mass Index (BMI) 31.4 Finger Stick Blood Glucose 193 Intake and Output for Last 24 Hours 09/01/20 09/02/20 09/03/20 23:59 23:59 23:59 Intake Total 1760 / 1760 1200 / 1200 420 / 420 Balance 1760 / 1760 1200 / 1200 420 / 420 General: Alert, Oriented x3, Cooperative HEENT: Atraumatic Extremities: Capillary Refill Less than 3 Seconds, No Calf Tenderness Skin: - - Left lower extremity dressing clean, dry, and intact without strikethrough or adjacent erythema or streaking. Left heel posterior margin does have a evidence of drained blister with well adhered eschar. There is no drainage erythema purulence streaking calor or infection. Skin atrophic/hairless Musculoskeletal: Muscle Wasting, - - Right transmetatarsal amputation. Left chronic stable Charcot rocker-bottom foot Neurological: - - Lack of epicritic sensation to light touch bilateral lower extremities is consistent with her neuropathic status Psych/Mental Status: Normal Affect, Appropriate Laboratory Results 09/02/20 16:39: POC Glucose 93 09/02/20 21:36: POC Glucose 269 H 09/03/20 06:22: POC Glucose 129 H Current Medications Acetaminophen (Acetaminophen 500 Mg Tablet) 1,000 mg PO Q6H PRN PRN PRN Reason: Pain Score 1-3 Last Admin: 09/02/20 06:30 Dose: 1,000 mg Documented by: Allopurinol ([facility] 100 Mg Tablet) [facility] Last Admin: 09/03/20 08:32 Dose: 100 mg Documented by: Amlodipine Besylate (Amlodipine 5 Mg Tablet) 5 mg PO DAILY@0800 [facility] Last Admin: 09/03/20 08:31 Dose: 5 mg Documented by: Aspirin (Aspirin E.C. 81 Mg Tablet) [facility] Last Admin: 09/03/20 08:29 Dose: 81 mg Documented by: Bisacodyl (Bisacodyl 10 Mg Suppository) 10 mg RC DAILY PRN PRN Reason: Constipation Calamine/Phenol (Menthol/Lanolin/Calamine/Znox 113 Gm Tube) 1 applic TOPICAL TID [facility]; Protocol Last Admin: 09/03/20 06:40 Dose: 1 applic Documented by: Carvedilol (Carvedilol 25 Mg Tablet) 25 mg PO BID@0800,1999 [facility] Last Admin: 09/03/20 08:29 Dose: 25 mg Documented by: Celecoxib (Celecoxib 200 Mg Capsule) 200 mg PO DAILY [facility] Last Admin: 09/03/20 06:40 Dose: 200 mg Documented by: Clopidogrel Bisulfate (Clopidogrel Bisulfate 75 Mg Tablet) 75 mg PO DAILY [facility] Last Admin: 09/03/20 06:40 Dose: 75 mg Documented by: Heparin Sodium (Beef Lung) (Heparin Pf Lock 10 Units/Ml 50 Units/5 Ml Syringe) 50 units IV UD PRN PRN Reason: PICC Line Heparin Flush Hydrocortisone (Hydrocortisone 2.5% Crm) 1 applic TOPICAL TID PRN PRN; Protocol PRN Reason: ITCHING Last Admin: 09/03/20 03:36 Dose: 1 applic Documented by: Sodium Chloride () 250 mls @ 15 mls/hr IV .[id number] PRN PRN Reason: Saline Flush Last Infusion: 09/01/20 23:10 Dose: Infused Documented by: Sodium Chloride () 250 mls @ 15 mls/hr IV .[id number] PRN PRN Reason: Additional IVPB Infusion Insulin Glargine (Insulin Glargine 100 Units/Ml Pen) 10 units SC BID [facility] Last Admin: 09/03/20 06:45 Dose: 10 u Documented by: Insulin Human Lispro (Insulin Lispro 100 Unit/Ml Insuln.Pen) 10 unit SC TIDCM [facility] Last Admin: 09/03/20 08:32 Dose: 8 u Documented by: Isosorbide Mononitrate (Isosorbide Mononitrate 60 Mg Tablet) 120 mg PO 1800 [facility] Last Admin: 09/02/20 17:55 Dose: 120 mg Documented by: Isosorbide Mononitrate (Isosorbide Mononitrate 60 Mg Tablet) 60 mg PO DAILY@0800 [facility] Last Admin: 09/03/20 08:30 Dose: 60 mg Documented by: L-Arginine/L-Glutamine/Calcium HMB (Blue (Unflavored) Packet) 1 packet PO BIDCM [facility] Last Admin: 09/03/20 08:36 Dose: 1 packet Documented by: Levothyroxine Sodium (Levothyroxine 75 Mcg Tablet) 75 mcg PO QHS [facility] Last Admin: 09/02/20 21:34 Dose: 75 mcg Documented by: Lisinopril (Lisinopril 10 Mg Tablet) 10 mg PO DAILY@0800 [facility] Last Admin: 09/03/20 08:32 Dose: 10 mg Documented by: Magnesium Hydroxide (Magnesium Hydroxide 30 Ml Udc) 30 ml PO DAILY PRN PRN Reason: Constipation Melatonin (Melatonin 3 Mg Tablet) 6 mg PO QHS [facility] Last Admin: 09/02/20 21:34 Dose: 6 mg Documented by: Metoclopramide HCl (Metoclopramide 10 Mg Tablet) 10 mg PO Q8H PRN PRN PRN Reason: NAUSEA Morphine Sulfate (Morphine (Oral Solution) 10mg/0.5ml Syringe) 10 mg SL/PO Q2H PRN PRN PRN Reason: Pain Score 6-10 Last Admin: 09/02/20 21:45 Dose: 10 mg Documented by: Nitroglycerin (Nitroglycerin (Inpatient Use) 0.4 Mg Tab.Subl) 0.4 mg SL Q5M PRN PRN Reason: CARDIAC/CHEST PAIN Nystatin (Nystatin Powder 15gm Bottle) 1 applic TOPICAL 0600,2200 [facility]; Protocol Last Admin: 09/03/20 06:40 Dose: 1 applic Documented by: Pancrelipase (Creon 24,[address] Capsule) [facility] Last Admin: 09/03/20 08:29 Dose: 1 capsule Documented by: Pantoprazole Sodium (Pantoprazole Sodium 20 Mg Tablet) 20 mg PO DAILY@0800 [facility] Last Admin: 09/03/20 08:32 Dose: 20 mg Documented by: Polyethylene Glycol (Polyethylene Glycol 3350 17 Gm Packet) 17 gm PO DAILY [facility] Last Admin: 09/03/20 06:40 Dose: 17 gm Documented by: Pravastatin Sodium (Pravastatin 40 Mg Tablet) 40 mg PO QHS [facility] Last Admin: 09/02/20 21:34 Dose: 40 mg Documented by: Senna/Docusate Sodium (Senna/Docusate Sodium 1 Tablet) 1 tablet PO BID [facility] Last Admin: 09/03/20 06:40 Dose: 1 tablet Documented by: Sodium Chloride (0.9% Saline Lock 10 Ml Syringe) 10 - 40 ml IV UD PRN PRN Reason: SALINE FLUSH Last Admin: 09/03/20 06:48 Dose: 20 ml Documented by: Sodium Chloride (0.9% Saline Lock 10 Ml Syringe) 10 - 40 ml IV UD PRN PRN Reason: Open End PICC Flush Last Admin: 08/25/20 21:14 Dose: 20 ml Documented by: Sodium Chloride (0.9 % Nacl (Sterile) Posiflush 10 Ml) 10 - 40 ml IV UD PRN PRN Reason: Port access or dressing change Tizanidine HCl (Tizanidine Hcl 2 Mg Tablet) 4 mg PO Q8H PRN PRN PRN Reason: BACK PAIN Last Admin: 09/02/20 02:23 Dose: 4 mg Documented by: Trazodone HCl (Trazodone 100 Mg Tablet) 100 mg PO QHS PRN PRN Reason: SLEEP Last Admin: 09/02/20 23:39 Dose: 100 mg Documented by: Venlafaxine HCl (Venlafaxine Hcl 100 Mg Tablet) 100 mg PO BID [facility] Last Admin: 09/03/20 06:40 Dose: 100 mg Documented by: Medical Necessity - Tobacco Use Smoking Status: Never smoker Tobacco Use: Non-smoker Assessment/Plan All Active Problems (Last Reviewed 06/10/20 @ 21:[address] Judson Massey MD) Diabetic infection of left foot (Acute) Abscess of left foot (Acute) Constipation due to opioid therapy (Acute) Chronic neuropathic pain (Acute) Pressure ulcer, heel, right, unstageable (Acute) Debility (Acute) Decubitus ulcer of sacral region, stage 2 (Resolved) Left foot cellulitis resolved Left foot ulcer Abscess left foot s/p debridement in OR 08/19/20 Charcot foot deformity left foot Pressure ulcer/drained blister right heel Diabetes with neuropathy Patient seen and examined bedside. Left foot has continued to improved after surgery. Reviewed wound and blood culture results, patient on IV antibiotics w/ ID/Dr. Webb on consult. Left foot dressing was kept intact without strikethrough or adjacent signs of infection. Right foot was evaluated today with evidence of pressure change. I recommend offloading with a heel foam protection boot while laying in bed. This was ordered. Strict nonweightbearing left lower extremity with assistive device. New LEAS re-ordered for further assessment of lower extremity arterial flow. Results include left biphasic waveforms, JOSE E 0.81, TBI 0.73. It is noted she has non compressible vessels. Given her delayed healing status, prior amputation, and recurrent ulcers I recommend a vascular surgery consult. This case was communicated to vascular surgeon, Dr. Pang who recommended arterial Doppler. This test was ordered and completed. The results are not finalized yet. Formal consult be placed for next week to see if intervention would improve her inflow to optimize healing. Continue nutritional supplements and proper glycemic control to optimize healing. Podiatry will continue to follow. Please call if questions. Ivanna Magana DPM, [facility] [phone]
[2020-09-03 11:31] LABS: Bedside Glucose 157 mg/dL (70-110)
[2020-09-03 13:51] VITALS: BP 135/73; PULSE 64; RESP 16; TEMP 35.6; O2SAT 96
[2020-09-03] MEDS: Acetaminophen 500 MG Tablet 1000 MG PO (14:06)
[2020-09-03 16:26] LABS: Bedside Glucose 61 mg/dL (70-110)
[2020-09-03] MEDS: Isosorbide Mononitrate 60 MG Tablet 120 MG PO (17:32)
[2020-09-03 17:36] LABS: Bedside Glucose 169 mg/dL (70-110)
[2020-09-03] MEDS: morphine (oral solution) 10MG/0.5ML Syringe 10 MG SL/PO (21:00)
[2020-09-03] MEDS: MELATONIN 3 MG TABLET 6 MG PO (21:03)
[2020-09-03] MEDS: Levothyroxine 75 MCG Tablet PO (21:03)
[2020-09-03] MEDS: Pravastatin 40 MG Tablet PO (21:03)
[2020-09-03 21:08] VITALS: PULSE 84; RESP 16; O2SAT 95
[2020-09-03 21:26] LABS: Bedside Glucose 150 mg/dL (70-110)
[2020-09-03] MEDS: traZODone 100 MG Tablet PO (22:20)
[2020-09-04 05:00] VITALS: BP 146/60; PULSE 63; RESP 16; TEMP 36.8
[2020-09-04 06:26] LABS: Bedside Glucose 106 mg/dL (70-110)
[2020-09-04] MEDS: Clopidogrel Bisulfate 75 MG Tablet PO (06:31)
[2020-09-04] MEDS: Polyethylene Glycol 3350 17 GM PACKET PO (06:31)
[2020-09-04] MEDS: Celecoxib 200 MG Capsule PO (06:31)
[2020-09-04] MEDS: Senna/Docusate Sodium 1 Tablet PO ×2 (06:31→18:46)
[2020-09-04] MEDS: Nystatin Powder 15gm Bottle 1 APPLIC TOPICAL (06:33)
[2020-09-04] MEDS: Menthol/Lanolin/Calamine/Znox 113 GM Tube 1 APPLIC TOPICAL ×3 (06:34→22:46)
[2020-09-04] MEDS: 0.9% Saline Lock 10 ML Syringe IV (06:37)
[2020-09-04 09:08] VITALS: PULSE 82; RESP 16
[2020-09-04] MEDS: Juven (unflavored) Packet 1 PACKET PO ×2 (09:08→18:45)
[2020-09-04] MEDS: Aspirin E.C. 81 MG Tablet PO (09:09)
[2020-09-04] MEDS: Isosorbide Mononitrate 60 MG Tablet PO (09:10)
[2020-09-04] MEDS: Carvedilol 25 MG Tablet PO ×2 (09:11→21:23)
[2020-09-04] MEDS: Creon 24,000 unit DR Capsule 1 CAP PO ×2 (09:11→18:46)
[2020-09-04] MEDS: Allopurinol 100 MG Tablet PO (09:12)
[2020-09-04] MEDS: Lisinopril 10 MG Tablet PO (09:12)
[2020-09-04] MEDS: Pantoprazole Sodium 20 MG Tablet PO (09:12)
[2020-09-04] MEDS: Insulin Lispro 100 UNIT/ML INSULN.PEN 10 UNIT SC ×3 (09:17→18:50)
[2020-09-04] MEDS: amLODIPine 5 MG Tablet PO (09:21)
[2020-09-04 10:56] LABS: Bedside Glucose 312 mg/dL (70-110)
[2020-09-04] MEDS: Acetaminophen 500 MG Tablet 1000 MG PO (13:04)
[2020-09-04 14:42] VITALS: BP 154/71; PULSE 60; RESP 16; TEMP 36.2; O2SAT 97
[2020-09-04 16:16] LABS: Bedside Glucose 258 mg/dL (70-110)
[2020-09-04] MEDS: Isosorbide Mononitrate 60 MG Tablet 120 MG PO (18:45)
[2020-09-04] MEDS: morphine (oral solution) 10MG/0.5ML Syringe 10 MG SL/PO (18:56)
[2020-09-04] MEDS: Levothyroxine 75 MCG Tablet PO (21:22)
[2020-09-04] MEDS: Pravastatin 40 MG Tablet PO (21:22)
[2020-09-04] MEDS: MELATONIN 3 MG TABLET 6 MG PO (21:23)
[2020-09-04 21:31] LABS: Bedside Glucose 286 mg/dL (70-110)
[2020-09-04] MEDS: traZODone 100 MG Tablet PO (22:44)
--- NOTE | 2020-09-05 01:06 | NURSING ---
Patient c/o having a yeast infection and states, I told [facility]scft nurse and they called the doctor. The patient asked this nurse if the doctor ordered anything for her yeast infection. I stated there was no new orders in the computer as of now. Patient states, brought in this cream that I use at home I have been using it. I explained to the patient that she will need a order from the doctor in order to use it. The name of the cream is Ketoconazole and would like a order for it. This nurse add it to the doctor list.
[2020-09-05 05:00] VITALS: BP 134/52; PULSE 64; RESP 16; TEMP 36.9; O2SAT 94
[2020-09-05 06:21] LABS: Bedside Glucose 148 mg/dL (70-110)
[2020-09-05] MEDS: Clopidogrel Bisulfate 75 MG Tablet PO (06:53)
[2020-09-05] MEDS: Celecoxib 200 MG Capsule PO (06:53)
[2020-09-05] MEDS: Polyethylene Glycol 3350 17 GM PACKET PO (06:54)
[2020-09-05] MEDS: Menthol/Lanolin/Calamine/Znox 113 GM Tube 1 APPLIC TOPICAL ×3 (06:54→22:33)
[2020-09-05] MEDS: Senna/Docusate Sodium 1 Tablet PO (06:54)
[2020-09-05] MEDS: 0.9% Saline Lock 10 ML Syringe IV ×2 (07:04→18:18)
--- NOTE | 2020-09-05 08:50 | NURSING ---
wound photo: left foot
--- NOTE | 2020-09-05 08:51 | NURSING ---
wound photo: right posterior heel
[2020-09-05] MEDS: Insulin Lispro 100 UNIT/ML INSULN.PEN 10 UNIT SC ×3 (08:53→18:13)
[2020-09-05] MEDS: Pantoprazole Sodium 20 MG Tablet PO (08:54)
[2020-09-05] MEDS: amLODIPine 5 MG Tablet PO (08:54)
[2020-09-05] MEDS: Isosorbide Mononitrate 60 MG Tablet PO (08:54)
[2020-09-05] MEDS: Carvedilol 25 MG Tablet PO ×2 (08:54→22:33)
[2020-09-05] MEDS: Creon 24,000 unit DR Capsule 1 CAP PO ×2 (08:54→18:00)
[2020-09-05] MEDS: Aspirin E.C. 81 MG Tablet PO (08:54)
[2020-09-05] MEDS: Lisinopril 10 MG Tablet PO (08:54)
[2020-09-05] MEDS: Juven (unflavored) Packet 1 PACKET PO ×2 (08:55→18:00)
[2020-09-05] MEDS: Allopurinol 100 MG Tablet PO (08:55)
[2020-09-05 11:10] LABS: Bedside Glucose 354 mg/dL (70-110)
[2020-09-05 14:16] VITALS: BP 103/52; PULSE 68; RESP 16; TEMP 36; O2SAT 96
--- NOTE | 2020-09-05 16:09 | NURSING ---
Wound dressing changed today per wound nurse
--- NOTE | 2020-09-05 16:49 | CHAPLAIN ---
Type of Pastoral Visit _x__ Initial Visit ___ Follow-up Visit ___ On-call Visit ___ General Patient Visit ___ Spiritual Assessment ___ Family Conference ___ Bereavement ___ Rapid Response ___ Code Blue ___ Other (describe below) Pastoral Care Referral From _x__ Patient ___ Family ___ Nurse ___ Physician ___ Automotive Professional ___ Bus Van Driver ___ Other (describe below) Sacrament/Intervention _x__ Active listening ___ Anointing ___ Quaker ___ Bereavement ___ Communion ___ Sharron exploration ___ ___ Life review _x__ Prayer ___ Reconciliation ___ Sacrament of Sick _x__ Supportive presence ___ Wedding ___ Other (describe below) Pastoral Comments patient was seen by this breaster when on MS3 and on previous admission; pt gives update and shares concerns about her foot healing and if future surgeries are necessary; pt always welcomes prayer support
[2020-09-05 17:00] LABS: Bedside Glucose 67 mg/dL (70-110)
[2020-09-05] MEDS: Isosorbide Mononitrate 60 MG Tablet 120 MG PO (18:00)
[2020-09-05] MEDS: morphine (oral solution) 10MG/0.5ML Syringe 10 MG SL/PO (18:17)
[2020-09-05 18:21] LABS: Bedside Glucose 229 mg/dL (70-110)
[2020-09-05 18:52] VITALS: BP 156/83; PULSE 71
[2020-09-05 21:26] LABS: Bedside Glucose 220 mg/dL (70-110)
[2020-09-05 22:29] VITALS: BP 138/57; PULSE 68
[2020-09-05] MEDS: MELATONIN 3 MG TABLET 6 MG PO (22:33)
[2020-09-05] MEDS: Nystatin Powder 15gm Bottle 1 APPLIC TOPICAL (22:34)
[2020-09-05] MEDS: traZODone 100 MG Tablet PO (22:35)
[2020-09-05] MEDS: Pravastatin 40 MG Tablet PO (22:35)
[2020-09-05] MEDS: Acetaminophen 500 MG Tablet 1000 MG PO (22:37)
[2020-09-05] MEDS: Levothyroxine 75 MCG Tablet PO (22:39)
[2020-09-05] MEDS: Insulin Lispro 100 UNIT/ML INSULN.PEN SC (22:42)
[2020-09-06 05:00] VITALS: BP 125/53; PULSE 73; RESP 14; TEMP 36.7; O2SAT 95
[2020-09-06] MEDS: Menthol/Lanolin/Calamine/Znox 113 GM Tube 1 APPLIC TOPICAL ×3 (05:46→21:13)
[2020-09-06] MEDS: Celecoxib 200 MG Capsule PO (05:49)
[2020-09-06] MEDS: Senna/Docusate Sodium 1 Tablet PO (05:49)
[2020-09-06] MEDS: Clopidogrel Bisulfate 75 MG Tablet PO (05:49)
[2020-09-06] MEDS: Polyethylene Glycol 3350 17 GM PACKET PO (05:49)
[2020-09-06 06:09] LABS: Absolute Neutrophil Count 2.5 X10^3/uL (2.0-7.7); Basophil# 0.03 X10^3/uL; Basophil% 0.5 % (0-1); Eosinophil# 0.24 X10^3/uL; Hematocrit 37.2 % (37-47); Hemoglobin 11.5 g/dL (12.0-15.0); Lymphocyte % 43.5 % (19-41); Mean Corp Hgb Conc 30.9 g/dL (32-36); Mean Corpuscular Hgb 29.1 pg (27.0-32.0); Mean Corpuscular Volume 94.2 fL (81-99); Monocyte# 0.63 X10^3/uL; Monocyte% 10.5 % (0-10); NRBC Flagged by Analyzer 0 % (0-5); Neutrophil # 2.47 X10^3/uL (2.7-7.7); Neutrophil % 41.3 % (47-70); Platelet Count 207 K/mm3 (150-450); RBC Distribution Width CV 14.5 % (11.6-14.6); RBC Distribution Width SD 49.7 fl (35.1-43.9); Red Blood Count 3.95 M/mm3 (4.2-5.4)
[2020-09-06 06:30] LABS: Anion Gap 3 (5-15); BUN 69 mg/dL (7-18); BUN/Creat Ratio 53.1 RATIO (10-20); Calcium,Total 8.6 mg/dL (8.5-10.1); Chloride 106 mmol/L (98-107); EST Glomerular Filtration Rate 43 mL/min (>60); Est Glom Filt Rate - Afr Amer 52 mL/min (>60); Estimated Creatinine Clearance 33.28 ml/min; Glucose 115 mg/dL (74-106); Potassium 5.1 mmol/L (3.5-5.1); Sodium Level 135 mmol/L (136-145)
[2020-09-06 06:41] LABS: Bedside Glucose 123 mg/dL (70-110)
[2020-09-06] MEDS: Acetaminophen 500 MG Tablet 1000 MG PO (08:48)
[2020-09-06] MEDS: Pantoprazole Sodium 20 MG Tablet PO (08:51)
[2020-09-06] MEDS: amLODIPine 5 MG Tablet PO (08:51)
[2020-09-06] MEDS: Juven (unflavored) Packet 1 PACKET PO ×2 (08:51→17:19)
[2020-09-06] MEDS: Aspirin E.C. 81 MG Tablet PO (08:52)
[2020-09-06] MEDS: Creon 24,000 unit DR Capsule 1 CAP PO ×2 (08:52→17:19)
[2020-09-06] MEDS: Isosorbide Mononitrate 60 MG Tablet PO (08:52)
[2020-09-06] MEDS: Insulin Lispro 100 UNIT/ML INSULN.PEN 14 UNIT SC (08:56)
[2020-09-06] MEDS: Carvedilol 25 MG Tablet PO ×2 (09:06→21:13)
[2020-09-06] MEDS: Lisinopril 10 MG Tablet PO (09:06)
[2020-09-06] MEDS: Allopurinol 100 MG Tablet PO (09:06)
[2020-09-06 09:09] VITALS: BP 155/60; PULSE 74
--- NOTE | 2020-09-06 10:53 | CASEMGMT ---
Social Work Spoke with pt about DC plans. IDT set DC date for 09/09. Pt agreeable. Pt denied HHC SN stating her can care for wound and she goes to the wound center weekly. Pt remains agreeable to Palliative services. Notified Palliative of DC date. can transport pt. No DME needs. Plan: DC home 09/09 with Palliative. No other needs. Rae Ruiz, [employer]
[2020-09-06 11:01] LABS: Bedside Glucose 217 mg/dL (70-110)
[2020-09-06] MEDS: 0.9% Saline Lock 10 ML Syringe IV (11:13)
[2020-09-06] MEDS: 0.9% Normal Saline 1,000 ML 75 ML IV (11:16)
[2020-09-06] MEDS: Insulin Lispro 100 UNIT/ML INSULN.PEN 8 UNIT SC (11:59)
[2020-09-06 14:16] VITALS: BP 125/62; BP 144/70; BP 163/60; PULSE 62; PULSE 67; PULSE 75
[2020-09-06 14:30] VITALS: PULSE 66; RESP 18; O2SAT 95
[2020-09-06 16:26] LABS: Bedside Glucose 226 mg/dL (70-110)
[2020-09-06] MEDS: Isosorbide Mononitrate 60 MG Tablet 120 MG PO (17:20)
[2020-09-06] MEDS: Insulin Lispro 100 UNIT/ML INSULN.PEN 10 UNIT SC (17:20)
[2020-09-06] MEDS: Nystatin Powder 15gm Bottle 1 APPLIC TOPICAL (21:13)
[2020-09-06] MEDS: Levothyroxine 75 MCG Tablet PO (21:13)
[2020-09-06] MEDS: MELATONIN 3 MG TABLET 6 MG PO (21:13)
[2020-09-06] MEDS: Pravastatin 40 MG Tablet PO (21:13)
[2020-09-06] MEDS: morphine (oral solution) 10MG/0.5ML Syringe 10 MG SL/PO (21:14)
[2020-09-06] MEDS: Insulin Lispro 100 UNIT/ML INSULN.PEN SC (21:33)
[2020-09-06 21:55] LABS: Bedside Glucose 274 mg/dL (70-110)
[2020-09-06] MEDS: traZODone 100 MG Tablet PO (22:42)
[2020-09-07] MEDS: 0.9% Normal Saline 1,000 ML 75 ML IV (00:28)
[2020-09-07] MEDS: tiZANidine HCl 2 MG Tablet 4 MG PO ×2 (00:31→14:11)
[2020-09-07 05:00] VITALS: BP 147/60; PULSE 78; RESP 16; TEMP 36.6; O2SAT 97
[2020-09-07 06:21] LABS: Bedside Glucose 138 mg/dL (70-110)
[2020-09-07] MEDS: Celecoxib 200 MG Capsule PO (06:22)
[2020-09-07] MEDS: Senna/Docusate Sodium 1 Tablet PO ×2 (06:23→17:15)
[2020-09-07] MEDS: Polyethylene Glycol 3350 17 GM PACKET PO (06:23)
[2020-09-07] MEDS: Clopidogrel Bisulfate 75 MG Tablet PO (06:23)
[2020-09-07] MEDS: Menthol/Lanolin/Calamine/Znox 113 GM Tube 1 APPLIC TOPICAL ×3 (06:23→20:28)
[2020-09-07] MEDS: Acetaminophen 500 MG Tablet 1000 MG PO (06:26)
[2020-09-07] MEDS: Nystatin Powder 15gm Bottle 1 APPLIC TOPICAL ×2 (06:30→21:55)
[2020-09-07] MEDS: Creon 24,000 unit DR Capsule 1 CAP PO ×2 (08:19→17:14)
[2020-09-07] MEDS: Juven (unflavored) Packet 1 PACKET PO ×2 (08:19→17:14)
[2020-09-07] MEDS: Carvedilol 25 MG Tablet PO ×2 (08:19→20:20)
[2020-09-07] MEDS: Aspirin E.C. 81 MG Tablet PO (08:19)
[2020-09-07] MEDS: Pantoprazole Sodium 20 MG Tablet PO (08:19)
[2020-09-07] MEDS: amLODIPine 5 MG Tablet PO (08:19)
[2020-09-07] MEDS: Lisinopril 10 MG Tablet PO (08:19)
[2020-09-07] MEDS: Allopurinol 100 MG Tablet PO (08:19)
[2020-09-07] MEDS: Isosorbide Mononitrate 60 MG Tablet PO (08:19)
[2020-09-07] MEDS: Insulin Lispro 100 UNIT/ML INSULN.PEN 14 UNIT SC (08:22)
--- NOTE | 2020-09-07 10:28 | NURSING ---
This nurse was called to pt room, pt noted to have skin tear to left elbow, when asked what happened pt stated she must have bumped it, area cleansed and bandaid applied, Rn updated
[2020-09-07 10:35] LABS: Bedside Glucose 206 mg/dL (70-110)
[2020-09-07] MEDS: Insulin Lispro 100 UNIT/ML INSULN.PEN SC (11:06)
[2020-09-07] MEDS: Insulin Lispro 100 UNIT/ML INSULN.PEN 8 UNIT SC (11:07)
--- NOTE | 2020-09-07 12:03 | PCM.CONS.GEN ---
Problem List (1) Diabetic infection of left foot Status: Acute Reason for Consult Date of Consultation: 09/07/20 Reason for Consultation: PAD History of Present Illness: The patient is a 75 year old F with left foot wound and longstanding diabetes. She had previous drainage of the left foot and had healed but it worsened throughout these left foot wounds. Now she is in getting antibiotics and treatment. She had studies done that showed bilateral noncompressible with triphasic flow on the right but biphasic flow on the left. Digit brachial index on the left was 0.77. She also had a duplex that showed triphasic flow throughout the popliteal artery. Although this appeared to be some decreased flow noted with more monophasic in the posterior tibial artery. Diminished in the peroneal. The anterior tibial was biphasic flow but had some elevated velocities noted throughout. Vascular surgery consulted for evaluation. [] Past Medical History Past Medical History (Chronic Problems): Chronic Problems (Last Reviewed 09/07/20 @ 12:[address] 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 Hatfield @ [facility]:(Promus Premier 4.0 X 12 mm L2 stent from distal left main into proximal LCX; Promus Premier RX 2.25 X 12 mm L1 stent in distal LCX) 12/03/2018:Triple vessel CAD of the LAD, LCX, RCA Successful PTCA/YASIR mid LCX with a 2.5 x 20 Promus Synergy stent; 85%-->0-%, no dissection. 12/24/18:FFR of RCA=0.97, negative, left for medical managemen History of coronary artery bypass graft (Chronic) CABG X 3 vessels [facility]:DANIEL to LAD, reverse SVG to dx and to 2nd OM per Dr. Borjas @ [facility] 09/09/2014 Atherosclerotic heart disease of cheesh-[place] coronary artery without angina pectoris (Chronic) CABG X 3 vessels [facility]: DANIEL to LAD, reverse SVG to dx and to 2nd OM per Dr. Borjas @ [facility] 09/09/2014; PTCA/YASIR to Left main, LAD, and OM1 per Dr. Hatfield 12/21/2014; Carotid artery disease (Chronic) Peripheral vascular disease (Chronic) Hyperlipidemia (Chronic) Hypothyroidism (Chronic) Iron deficiency anemia (Chronic) GERD (gastroesophageal reflux disease) (Chronic) Medical History: Medical History (Last Reviewed 09/07/20 @ 12:[address] Aman Pang MD) Obesity (Chronic) E66.9 Vitamin D deficiency (Chronic) E55.9 Peripheral arterial occlusive disease (Chronic) I77.9 Charcot's joint of left foot (Chronic) M14.672 Type 2 diabetes mellitus with diabetic polyneuropathy (Chronic) E11.42 Ulcer of left foot with fat layer exposed (Chronic) L97.522 Recurrent Ulcer of abdomen wall with fat layer exposed (Chronic) L98.492 History of CVA (cerebrovascular accident) (Chronic) Z86.73 Atherosclerotic heart disease of cheesh-[place] coronary artery without angina pectoris (Chronic) I25.10 CABG X 3 vessels [facility]: DANIEL to LAD, reverse SVG to dx and to 2nd OM per Dr. Borjas @ [facility] 09/09/2014; PTCA/YASIR to Left main, LAD, and OM1 per Dr. Hatfield 12/21/2014; Carotid artery disease (Chronic) I77.9 Peripheral vascular disease (Chronic) I73.9 Hyperlipidemia (Chronic) E78.5 Hypothyroidism (Chronic) E03.9 Iron deficiency anemia (Chronic) D50.9 GERD (gastroesophageal reflux disease) (Chronic) K21.9 Carpal tunnel syndrome G56.00 Essential hypertension I10 Gout M10.9 History of blood clots Z86.718 History of blood transfusion Z92.89 IBS (irritable bowel syndrome) K58.9 Neuropathy G62.9 Osteoporosis M81.0 Allergies doxycycline Allergy (Severe, Verified 08/17/20 15:19) all over body hives and itching atorvastatin calcium [From Lipitor] Allergy (Verified 08/17/20 15:19) Unknown bupropion HCl [From Wellbutrin] Allergy (Verified 08/17/20 15:19) Unknown mannitol [From Reclast] Allergy (Verified 08/17/20 15:19) joint pain, unable to breathe, unable to walk propoxyphene napsylate [From Darvocet-N 100] Allergy (Verified 08/17/20 15:19) Unknown Quinolones Allergy (Verified 08/17/20 15:19) Unknown Tetanus Vaccines and Toxoid [Tetanus Vaccines & Toxoid] Allergy (Verified 08/17/20 15:19) Chest tightness tizanidine Allergy (Verified 08/17/20 15:19) Unknown zoledronic acid [From Reclast] Allergy (Verified 08/17/20 15:19) joint pain,unable to breathe, unaable to walk JOINT PAIN,UNABLE TO BREATHE,UNABLE TO WALK pravastatin Adverse Reaction (Severe, Verified 08/17/20 15:19) Myalgias gemfibrozil Adverse Reaction (Intermediate, Verified 08/17/20 15:19) Unknown NSAIDS (Non-Steroidal Anti-Inflamma Adverse Reaction (Verified 08/17/20 15:19) Other Home Medications: Ambulatory Orders Medication Instructions Recorded Pravastatin Sodium 40 mg PO QHS 03/10/17 amlodipine 5 mg tablet 5 mg PO DAILY tab 05/05/18 Esomeprazole Magnesium 20 mg PO DAILY 09/21/19 clopidogrel 75 mg tablet 75 mg PO DAILY #90 tab 11/23/19 Allopurinol 100 mg PO DAILY 03/17/20 Calcium Citrate 200 mg PO BID #0 03/17/20 aspirin 81 mg tablet,delayed 81 mg PO DAILY 04/05/20 release cbd 1 dose PO 4X/DAY PRN 04/05/20 [id number] 1 cap PO BID cap 04/05/20 24,000-76,000-120,000 unit capsule,delayed rel Menthol/Lanolin/Calamine/Znox 1 applic TOPICAL TID 04/19/20 [Calmoseptine Ointment] Acetaminophen [Tylenol] 1,000 mg PO Q6H PRN PRN tab 04/25/20 Nitroglycerin (INPATIENT USE) 0.4 mg SUBLINGUAL Q5M PRN tab.subl 04/25/20 [Nitrostat] Carvedilol 25 mg PO BID 08/17/20 Isosorbide Mononitrate [Isosorbide 60 mg PO DAILY 08/17/20 Mononitrate ER] Isosorbide Mononitrate [Isosorbide 120 mg PO DAILY 08/17/20 Mononitrate ER] Levothyroxine Sodium 75 mcg PO QHS 08/17/20 Linaclotide [Linzess] 72 mcg PO DAILY 08/17/20 Lisinopril 10 mg PO DAILY 08/17/20 Melatonin 6 mg PO QHS 08/17/20 Metoclopramide HCl 10 mg PO Q8H PRN 08/17/20 Morphine Sulfate 3 ml PO Q6H PRN PRN 08/17/20 Multivitamin/Iron/Folic Acid [Cvs 0.5 tablet PO BID 08/17/20 Spectravite Ultra Women Tb] Nutritional Supplement [Blue - 1 packet PO BIDCM 08/17/20 ORANGE FLAVOR] Tizanidine HCl 4 mg PO Q8H PRN 08/17/20 Trazodone HCl 100 mg PO QHS PRN 08/17/20 Tryptophan [l-Tryptophan] 500 mg PO DINNER 08/17/20 Venlafaxine HCl 100 mg PO BID 08/17/20 Wheat Dextrin [Benefiber] 15 ml PO DAILY 08/17/20 Amox/Clavulanate Tablet [Augmentin 875 mg PO BID 08/22/20 Tablet] Insulin Glargine [Lantus SoloStar 30 units SC BID 08/22/20 Pen] Insulin Lispro [Humalog KwikPen] 10 unit SC TIDCM 08/22/20 Insulin Lispro [Humalog KwikPen] See Protocol SC ACHS 08/22/20 Lidocaine [Lidoderm Patch] 2 patch TOPICAL DAILY 08/22/20 Surgical History: Surgical History (Last Reviewed 09/07/20 @ 12:[address] Aman Pang MD) Stented coronary artery (Chronic) Onset Date: 12/03/18 Z95.5 PTCA and YASIR to proximal and distal CX per Dr. Hatfield @ [facility]:(Promus Premier 4.0 X 12 mm L2 stent from distal left main into proximal LCX; Promus Premier RX 2.25 X 12 mm L1 stent in distal LCX) 12/03/2018:Triple vessel CAD of the LAD, LCX, RCA Successful PTCA/YASIR mid LCX with a 2.5 x 20 Promus Synergy stent; 85%-->0-%, no dissection. 12/24/18:FFR of RCA=0.97, negative, left for medical managemen History of coronary artery bypass graft (Chronic) Z95.1 CABG X 3 vessels [facility]:DANIEL to LAD, reverse SVG to dx and to 2nd OM per Dr. Borjas @ [facility] 09/09/2014 History of gastric bypass Z98.84 History of ventral hernia repair Z98.890, Z87.19 History of excision of lesion Z98.890, Z87.2 Surgical preparation supraumbilical area in previous scar with excision nonhealing ulcer and 16 cm complex secondary wound closure - 03/07/20 History of gastric bypass (Inactive) Z98.84 History of left heart catheterization (Inactive) Z98.890 CABG X 3 vessels [facility]:DANIEL to LAD, reverse SVG to dx and to 2nd OM per Dr. Borjas @ [facility] 09/09/2014; PTCA andDES to proximal and distal CX per Dr. Hatfield 12/21/2014; Hx of ventral hernia repair (Inactive) Z98.890, Z87.19 with mesh 20 years ago Surgical History: angioplasty - Stent., appendectomy, coronary bypass surgery, gastric bypass, tonsillectomy, - - , Carpal tunnel release, cardiac catheterization, carotid endarterectomy, right foot transmetatarsal amputation, exostectomy left foot Psychiatric History: Anxiety, Depression [employer] History: No pertinent [employer] history Lives: Spouse/ Significant Other Smoking Status: Never smoker Tobacco Use: Non-smoker Alcohol: None Drugs: None - *Family History Paternal Family History: Family History (Last Reviewed 09/07/20 @ 12:[address] Aman Pang MD) Mother Cancer CVA (cerebral vascular accident) CAD (coronary artery disease) Father CAD (coronary artery disease) History of coronary artery bypass graft Sister CAD (coronary artery disease) Multiple sclerosis Other Anxiety Bleeding disorder Depression Diabetes Heart disease High cholesterol Hypertension History Items: No pertinent history Maternal Family History: Family History (Last Reviewed 09/07/20 @ 12:[address] Aman Pang MD) Mother Cancer CVA (cerebral vascular accident) CAD (coronary artery disease) Father CAD (coronary artery disease) History of coronary artery bypass graft Sister CAD (coronary artery disease) Multiple sclerosis Other Anxiety Bleeding disorder Depression Diabetes Heart disease High cholesterol Hypertension History Items: No pertinent history Review of Systems Constitutional: Denies: Anorexia Eyes: Denies: Blurred vision HEENT: Denies: Difficulty Hearing Cardiovascular: Denies: Chest Pain Respiratory: Denies: Cough Gastrointestinal: Denies: Abdominal Pain Genitourinary: Denies: Dysuria Musculoskeletal: Denies: Arm Pain, Back Pain Skin: Reports: Wounds - Left foot wound Psychiatric: Denies: Anxiety Hematologic/ Lymphatic: Denies: Adenopathy Patient Problems: Active and Suspected Problems (Last Reviewed 09/07/20 @ 12:[address] Aman Pang MD) Diabetic infection of left foot (Acute) Constipation due to opioid therapy (Acute) Chronic neuropathic pain (Acute) Debility (Acute) - Physical Exam Vitals/I&O's: Vital Signs Temp Pulse Resp BP Pulse Ox 97.8 F 78 16 147/60 H 97 09/07/20 05:00 09/07/20 05:00 09/07/20 05:00 09/07/20 05:00 09/07/20 05:00 Oxygen Delivery Method Room Air Weight: 178 lb 1 oz Body Mass Index (BMI) 31.4 Finger Stick Blood Glucose 193 Orthostatic Vital Signs Start: 09/06/20 14:16 Freq: q24h Status: Active Protocol: Activity Type Activity Date Activity User E-Sign Co-Sign Detail Recorded Client Recorded Date Recorded By Document 09/06/20 14:16 TB [id number] 09/06/20 14:45 TB 09/06/20 14:16 Orthostatic Vitals Standing -Blood Pressure (90/60-120/80) 125/62 H -Extremity Use Left Arm -Pulse Rate (60-100) 75 Sitting -Blood Pressure (90/60-120/80) 144/70 H -Extremity Use Left Arm -Pulse Rate (60-100) 67 Lying -Blood Pressure (90/60-120/80) 163/60 H -Extremity Use Left Arm -Pulse Rate (60-100) 62 Intake and Output for Last 24 Hours 09/05/20 09/06/20 09/07/20 23:59 23:59 23:59 Intake Total 1380 / 1380 480 / 480 2078.75 / 2078.75 Balance 1380 / 1380 480 / 480 2078.75 / 2078.75 General: Alert, Oriented x3, No apparent distress HEENT: Atraumatic, PERRLA Oral: Moist Mucosa Neck: Supple, No JVD, Negative Carotid Bruits Lungs: Clear to auscultation Cardiovascular: Regular rate Abdomen: Bowel Sounds Present, Soft Extremities: - - Left foot wound Palpable radial pulse Musculoskeletal: No Tenderness to Palpation of Joints or Extremities Laboratory Results 09/06/20 16:06: POC Glucose 226 H 09/06/20 21:31: POC Glucose 274 H 09/07/20 06:04: POC Glucose 138 H 09/07/20 10:27: POC Glucose 206 H Current Medications Acetaminophen (Acetaminophen 500 Mg Tablet) 1,000 mg PO Q6H PRN PRN PRN Reason: Pain Score 1-3 Last Admin: 09/07/20 06:26 Dose: 1,000 mg Documented by: Allopurinol ([facility]op[facility]ol 100 Mg Tablet) [facility] Admin: 09/07/20 08:19 Dose: 100 mg Documented by: Amlodipine Besylate (Amlodipine 5 Mg Tablet) 5 mg PO DAILY@0800 [facility] Last Admin: 09/07/20 08:19 Dose: 5 mg Documented by: Aspirin (Aspirin E.C. 81 Mg Tablet) [facility] Last Admin: 09/07/20 08:19 Dose: 81 mg Documented by: Bisacodyl (Bisacodyl 10 Mg Suppository) 10 mg RC DAILY PRN PRN Reason: Constipation Calamine/Phenol (Menthol/Lanolin/Calamine/Znox 113 Gm Tube) 1 applic TOPICAL TID [facility]; Protocol Last Admin: 09/07/20 06:23 Dose: 1 applic Documented by: Carvedilol (Carvedilol 25 Mg Tablet) 25 mg PO BID@0800,2000 [facility] Last Admin: 09/07/20 08:19 Dose: 25 mg Documented by: Celecoxib (Celecoxib 200 Mg Capsule) 200 mg PO DAILY [facility] Last Admin: 09/07/20 06:22 Dose: 200 mg Documented by: Clopidogrel Bisulfate (Clopidogrel Bisulfate 75 Mg Tablet) 75 mg PO DAILY [facility] Last Admin: 09/07/20 06:23 Dose: 75 mg Documented by: Heparin Sodium (Beef Lung) (Heparin Pf Lock 10 Units/Ml 50 Units/5 Ml Syringe) 50 units IV UD PRN PRN Reason: PICC Line Heparin Flush Hydrocortisone (Hydrocortisone 2.5% Crm) 1 applic TOPICAL TID PRN PRN; Protocol PRN Reason: ITCHING Last Admin: 09/03/20 03:36 Dose: 1 applic Documented by: Sodium Chloride () 250 mls @ 15 mls/hr IV .[id number] PRN PRN Reason: Saline Flush Last Infusion: 09/01/20 23:10 Dose: Infused Documented by: Sodium Chloride () 250 mls @ 15 mls/hr IV .[id number] PRN PRN Reason: Additional IVPB Infusion Insulin Glargine (Insulin Glargine 100 Units/Ml Pen) 20 units SC DAILY [facility] Last Admin: 09/07/20 06:27 Dose: 20 units Documented by: Insulin Human Lispro (Insulin Lispro 100 Unit/Ml Insuln.Pen) 14 unit SC BREAKFAST [facility] Last Admin: 09/07/20 08:22 Dose: 10 u Documented by: Insulin Human Lispro (Insulin Lispro 100 Unit/Ml Insuln.Pen) 0 unit SC ACHS [facility]; Protocol Last Admin: 09/07/20 11:06 Dose: 2 units Documented by: Insulin Human Lispro (Insulin Lispro 100 Unit/Ml Insuln.Pen) 8 unit SC LUNCH [facility] Last Admin: 09/07/20 11:07 Dose: 6 u Documented by: Insulin Human Lispro (Insulin Lispro 100 Unit/Ml Insuln.Pen) 10 unit SC DINNER [facility] Last Admin: 09/06/20 17:20 Dose: 6 units Documented by: Isosorbide Mononitrate (Isosorbide Mononitrate 60 Mg Tablet) 120 mg PO 1800 [facility] Last Admin: 09/06/20 17:20 Dose: 120 mg Documented by: Isosorbide Mononitrate (Isosorbide Mononitrate 60 Mg Tablet) 60 mg PO DAILY@0800 [facility] Last Admin: 09/07/20 08:19 Dose: 60 mg Documented by: L-Arginine/L-Glutamine/Calcium HMB (Blue (Unflavored) Packet) 1 packet PO BIDCM [facility] Last Admin: 09/07/20 08:19 Dose: 1 packet Documented by: Levothyroxine Sodium (Levothyroxine 75 Mcg Tablet) 75 mcg PO QHS [facility] Last Admin: 09/06/20 21:13 Dose: 75 mcg Documented by: Lisinopril (Lisinopril 10 Mg Tablet) 10 mg PO DAILY@0800 [facility] Last Admin: 09/07/20 08:19 Dose: 10 mg Documented by: Magnesium Hydroxide (Magnesium Hydroxide 30 Ml Udc) 30 ml PO DAILY PRN PRN Reason: Constipation Melatonin (Melatonin 3 Mg Tablet) 6 mg PO QHS [facility] Last Admin: 09/06/20 21:13 Dose: 6 mg Documented by: Metoclopramide HCl (Metoclopramide 10 Mg Tablet) 10 mg PO Q8H PRN PRN PRN Reason: NAUSEA Miconazole Nitrate (Miconazole-7 Nitrate Cream) 1 applic VAGINAL QHS [facility] Last Admin: 09/06/20 21:14 Dose: Not Given Documented by: Morphine Sulfate (Morphine (Oral Solution) 10mg/0.5ml Syringe) 10 mg SL/PO Q2H PRN PRN PRN Reason: Pain Score 6-10 Last Admin: 09/06/20 21:14 Dose: 10 mg Documented by: Nitroglycerin (Nitroglycerin (Inpatient Use) 0.4 Mg Tab.Subl) 0.4 mg SL Q5M PRN PRN Reason: CARDIAC/CHEST PAIN Nystatin (Nystatin Powder 15gm Bottle) 1 applic TOPICAL 0600,2200 [facility]; Protocol Last Admin: 09/07/20 06:30 Dose: 1 applic Documented by: Pancrelipase (Creon 24,[address] Capsule) [facility] Last Admin: 09/07/20 08:19 Dose: 1 capsule Documented by: Pantoprazole Sodium (Pantoprazole Sodium 20 Mg Tablet) 20 mg PO DAILY@0800 [facility] Last Admin: 09/07/20 08:19 Dose: 20 mg Documented by: Polyethylene Glycol (Polyethylene Glycol 3350 17 Gm Packet) 17 gm PO DAILY [facility] Last Admin: 09/07/20 06:23 Dose: 17 gm Documented by: Pravastatin Sodium (Pravastatin 40 Mg Tablet) 40 mg PO QHS [facility] Last Admin: 09/06/20 21:13 Dose: 40 mg Documented by: Senna/Docusate Sodium (Senna/Docusate Sodium 1 Tablet) 1 tablet PO BID [facility] Last Admin: 09/07/20 06:23 Dose: 1 tablet Documented by: Sodium Chloride (0.9% Saline Lock 10 Ml Syringe) 10 - 40 ml IV UD PRN PRN Reason: SALINE FLUSH Last Admin: 09/06/20 11:13 Dose: 10 ml Documented by: Sodium Chloride (0.9% Saline Lock 10 Ml Syringe) 10 - 40 ml IV UD PRN PRN Reason: Open End PICC Flush Last Admin: 08/25/20 21:14 Dose: 20 ml Documented by: Sodium Chloride (0.9 % Nacl (Sterile) Posiflush 10 Ml) 10 - 40 ml IV UD PRN PRN Reason: Port access or dressing change Tizanidine HCl (Tizanidine Hcl 2 Mg Tablet) 4 mg PO Q8H PRN PRN PRN Reason: BACK PAIN Last Admin: 09/07/20 00:31 Dose: 4 mg Documented by: Trazodone HCl (Trazodone 100 Mg Tablet) 100 mg PO QHS PRN PRN Reason: SLEEP Last Admin: 09/06/20 22:42 Dose: 100 mg Documented by: Venlafaxine HCl (Venlafaxine Hcl 100 Mg Tablet) 100 mg PO BID [facility] Last Admin: 09/07/20 06:23 Dose: 100 mg Documented by: Assessment/Plan All Active Problems (Last Reviewed 09/07/20 @ 12:[address] Aman Pang MD) Delayed wound healing (Acute) Other specified peripheral vascular diseases (Acute) Pressure ulcer, heel, right, unstageable (Acute) Diabetic infection of left foot (Acute) Abscess of left foot (Acute) Constipation due to opioid therapy (Acute) Chronic neuropathic pain (Acute) Debility (Acute) Decubitus ulcer of sacral region, stage 2 (Resolved) 1. PAD. Patient appears to have some tibial disease noted on the left. With the worsening of the wound I plan to do an angiogram to better evaluate the tibials. Probably could use some angioplasty to further assist with the healing. We will get her scheduled for this over the next week or so. This is okay to be done as an outpatient.
--- NOTE | 2020-09-07 13:17 | NURSING ---
Dr. Pang in today for consult, wound nurse changed dressing to left foot
[2020-09-07 13:20] VITALS: BP 157/59; PULSE 67; RESP 16; TEMP 36.5; O2SAT 95
[2020-09-07 13:21] VITALS: BP 119/43; BP 140/55; BP 157/59; PULSE 67; PULSE 75; PULSE 78
[2020-09-07 16:41] LABS: Bedside Glucose 96 mg/dL (70-110)
[2020-09-07] MEDS: Isosorbide Mononitrate 60 MG Tablet 120 MG PO (17:15)
[2020-09-07] MEDS: Insulin Lispro 100 UNIT/ML INSULN.PEN 10 UNIT SC (17:16)
[2020-09-07] MEDS: MELATONIN 3 MG TABLET 6 MG PO (20:20)
[2020-09-07] MEDS: Pravastatin 40 MG Tablet PO (20:20)
[2020-09-07] MEDS: Levothyroxine 75 MCG Tablet PO (20:20)
[2020-09-07] MEDS: morphine (oral solution) 10MG/0.5ML Syringe 10 MG SL/PO (20:24)
[2020-09-07 21:46] LABS: Bedside Glucose 134 mg/dL (70-110)
[2020-09-07] MEDS: traZODone 100 MG Tablet PO (23:29)
[2020-09-08 05:00] VITALS: BP 151/53; PULSE 61; RESP 16; TEMP 36.4; O2SAT 98
[2020-09-08 06:00] LABS: Anion Gap 3 (5-15); BUN 52 mg/dL (7-18); BUN/Creat Ratio 46.4 RATIO (10-20); Calcium,Total 8.9 mg/dL (8.5-10.1); Chloride 112 mmol/L (98-107); Creatinine, Serum 1.12 mg/dL (0.55-1.02); EST Glomerular Filtration Rate 51 mL/min (>60); Est Glom Filt Rate - Afr Amer 61 mL/min (>60); Estimated Creatinine Clearance 38.63 ml/min; Glucose 89 mg/dL (74-106); Potassium 5.2 mmol/L (3.5-5.1); Sodium Level 136 mmol/L (136-145)
[2020-09-08] MEDS: Clopidogrel Bisulfate 75 MG Tablet PO (06:21)
[2020-09-08] MEDS: Polyethylene Glycol 3350 17 GM PACKET PO (06:21)
[2020-09-08] MEDS: Celecoxib 200 MG Capsule PO (06:21)
[2020-09-08] MEDS: Senna/Docusate Sodium 1 Tablet PO ×2 (06:21→18:05)
[2020-09-08] MEDS: Menthol/Lanolin/Calamine/Znox 113 GM Tube 1 APPLIC TOPICAL ×3 (06:22→21:48)
[2020-09-08] MEDS: Nystatin Powder 15gm Bottle 1 APPLIC TOPICAL ×2 (06:22→21:59)
[2020-09-08] MEDS: Acetaminophen 500 MG Tablet 1000 MG PO (06:29)
[2020-09-08] MEDS: 0.9% Saline Lock 10 ML Syringe IV ×2 (06:32→12:55)
[2020-09-08 06:36] LABS: Bedside Glucose 127 mg/dL (70-110)
[2020-09-08] MEDS: Juven (unflavored) Packet 1 PACKET PO ×2 (08:27→18:03)
[2020-09-08] MEDS: Creon 24,000 unit DR Capsule 1 CAP PO ×2 (08:27→18:02)
[2020-09-08] MEDS: Carvedilol 25 MG Tablet PO ×2 (08:28→21:48)
[2020-09-08] MEDS: Insulin Lispro 100 UNIT/ML INSULN.PEN 14 UNIT SC (08:28)
[2020-09-08] MEDS: Aspirin E.C. 81 MG Tablet PO (08:30)
[2020-09-08] MEDS: Isosorbide Mononitrate 60 MG Tablet PO (08:35)
[2020-09-08] MEDS: Lisinopril 10 MG Tablet PO (08:36)
[2020-09-08] MEDS: Pantoprazole Sodium 20 MG Tablet PO (08:36)
[2020-09-08] MEDS: amLODIPine 5 MG Tablet PO (08:36)
[2020-09-08] MEDS: Allopurinol 100 MG Tablet PO (08:36)
[2020-09-08 08:39] VITALS: BP 178/69; PULSE 78
--- NOTE | 2020-09-08 09:29 | PN_ITS ---
Patient Problems: Active and Suspected Problems (Last Reviewed 09/07/20 @ 12:[address] Aman Pang MD) Diabetic infection of left foot (Acute) Constipation due to opioid therapy (Acute) Chronic neuropathic pain (Acute) Debility (Acute) Subjective: Patient seen and examined resting comfortably. Patient denies any new pedal co mplaints. Patient denies any nausea, fever, chills, chest pain, shortness of breath, cough, streaking, purulence, vomiting. Patient relates no pain in her foot currently except at night occasionally. - Physical Exam Vitals/I&O's: Vital Signs Temp Pulse Resp BP Pulse Ox 97.6 F L 78 16 178/69 H 98 09/08/20 05:00 09/08/20 08:39 09/08/20 05:00 09/08/20 08:39 09/08/20 05:00 Oxygen Delivery Method Room Air Weight: 80.768 kg Body Mass Index (BMI) 31.4 Finger Stick Blood Glucose 193 Intake and Output for Last 24 Hours 09/06/20 09/07/20 09/08/20 23:59 23:59 23:59 Intake Total 480 / 480 2558.75 / 2558.75 240 / 240 Balance 480 / 480 2558.75 / 2558.75 240 / 240 General: Alert, Oriented x3 HEENT: Atraumatic Abdomen: Obese Extremities: No cyanosis, No edema, Capillary Refill Less than 3 Seconds, No Calf Tenderness, Diminished Peripheral Pulses, Tenderness - 2 ulceration left foot plantar Skin: Ulcer/ Wound - Plantar left foot. No malodor, erythema, purulence, probing to bone, streaking, fluctuation, crepitus, or other signs of infection. Skin is atrophic and hairless. Fibrotic, granular base. Serosanguineous drainage mild. Tracking to proximal and distal aspect of incision Musculoskeletal: - - TMA right foot. Charcot foot type left foot. Neurological: - - Decrease in epicritic sensation Psych/Mental Status: Normal Affect, Appropriate Laboratory Results 09/07/20 10:27: POC Glucose 206 H 09/07/20 16:28: POC Glucose 96 09/07/20 21:39: POC Glucose 134 H 09/08/20 05:10: Sodium 136, Potassium 5.2 H, Chloride 112 H, Carbon Dioxide 21.0, Anion Gap 3 L, BUN 52 H, Creatinine 1.12 H, Estim Creat Clear Calc 38.63, Est GFR (MDRD) Af Amer 61, Est GFR (MDRD) Non-Af 51 L, BUN/Creatinine Ratio 46.4 H, Glucose 89, Calcium 8.9 09/08/20 06:12: POC Glucose 127 H Current Medications Acetaminophen (Acetaminophen 500 Mg Tablet) 1,000 mg PO Q6H PRN PRN PRN Reason: Pain Score 1-3 Last Admin: 09/08/20 06:29 Dose: 1,000 mg Documented by: Allopurinol ([facility] 100 Mg Tablet) [facility] Last Admin: 09/08/20 08:36 Dose: 100 mg Documented by: Amlodipine Besylate (Amlodipine 5 Mg Tablet) 5 mg PO DAILY@0800 COUNTS INCLUDE 234 BEDS AT THE [facility] Last Admin: 09/08/20 08:36 Dose: 5 mg Documented by: Aspirin (Aspirin E.C. 81 Mg Tablet) [facility] Last Admin: 09/08/20 08:30 Dose: 81 mg Documented by: Bisacodyl (Bisacodyl 10 Mg Suppository) 10 mg RC DAILY PRN PRN Reason: Constipation Calamine/Phenol (Menthol/Lanolin/Calamine/Znox 113 Gm Tube) 1 applic TOPICAL TID COUNTS INCLUDE 234 BEDS AT THE [facility]; Protocol Last Admin: 09/08/20 06:22 Dose: 1 applic Documented by: Carvedilol (Carvedilol 25 Mg Tablet) 25 mg PO BID@0800,2000 COUNTS INCLUDE 234 BEDS AT THE [facility] Last Admin: 09/08/20 08:28 Dose: 25 mg Documented by: Celecoxib (Celecoxib 200 Mg Capsule) 200 mg PO DAILY COUNTS INCLUDE 234 BEDS AT THE [facility] Last Admin: 09/08/20 06:21 Dose: 200 mg Documented by: Clopidogrel Bisulfate (Clopidogrel Bisulfate 75 Mg Tablet) 75 mg PO DAILY COUNTS INCLUDE 234 BEDS AT THE [facility] Last Admin: 09/08/20 06:21 Dose: 75 mg Documented by: Heparin Sodium (Beef Lung) (Heparin Pf Lock 10 Units/Ml 50 Units/5 Ml Syringe) 50 units IV UD PRN PRN Reason: PICC Line Heparin Flush Hydrocortisone (Hydrocortisone 2.5% Crm) 1 applic TOPICAL TID PRN PRN; Protocol PRN Reason: ITCHING Last Admin: 09/03/20 03:36 Dose: 1 applic Documented by: Sodium Chloride () 250 mls @ 15 mls/hr IV .[id number] PRN PRN Reason: Saline Flush Last Infusion: 09/01/20 23:10 Dose: Infused Documented by: Sodium Chloride () 250 mls @ 15 mls/hr IV .[id number] PRN PRN Reason: Additional IVPB Infusion Insulin Glargine (Insulin Glargine 100 Units/Ml Pen) 20 units SC DAILY COUNTS INCLUDE 234 BEDS AT THE [facility] Last Admin: 09/08/20 06:23 Dose: 20 units Documented by: Insulin Human Lispro (Insulin Lispro 100 Unit/Ml Insuln.Pen) 14 unit SC BREAKFAST COUNTS INCLUDE 234 BEDS AT THE [facility] Last Admin: 09/08/20 08:28 Dose: 8 u Documented by: Insulin Human Lispro (Insulin Lispro 100 Unit/Ml Insuln.Pen) 0 unit SC ACHS COUNTS INCLUDE 234 BEDS AT THE [facility]; Protocol Last Admin: 09/08/20 08:24 Dose: Not Given Documented by: Insulin Human Lispro (Insulin Lispro 100 Unit/Ml Insuln.Pen) 8 unit SC LUNCH COUNTS INCLUDE 234 BEDS AT THE [facility] Last Admin: 09/07/20 11:07 Dose: 6 u Documented by: Insulin Human Lispro (Insulin Lispro 100 Unit/Ml Insuln.Pen) 10 unit SC DINNER COUNTS INCLUDE 234 BEDS AT THE [facility] Last Admin: 09/07/20 17:16 Dose: 6 units Documented by: Isosorbide Mononitrate (Isosorbide Mononitrate 60 Mg Tablet) 120 mg PO 1800 COUNTS INCLUDE 234 BEDS AT THE [facility] Last Admin: 09/07/20 17:15 Dose: 120 mg Documented by: Isosorbide Mononitrate (Isosorbide Mononitrate 60 Mg Tablet) 60 mg PO DAILY@0800 COUNTS INCLUDE 234 BEDS AT THE [facility] Last Admin: 09/08/20 08:35 Dose: 60 mg Documented by: L-Arginine/L-Glutamine/Calcium HMB (Blue (Unflavored) Packet) 1 packet PO BIDCM COUNTS INCLUDE 234 BEDS AT THE [facility] Last Admin: 09/08/20 08:27 Dose: 1 packet Documented by: Levothyroxine Sodium (Levothyroxine 75 Mcg Tablet) 75 mcg PO QHS COUNTS INCLUDE 234 BEDS AT THE [facility] Last Admin: 09/07/20 20:20 Dose: 75 mcg Documented by: Lisinopril (Lisinopril 10 Mg Tablet) 10 mg PO DAILY@0800 COUNTS INCLUDE 234 BEDS AT THE [facility] Last Admin: 09/08/20 08:36 Dose: 10 mg Documented by: Magnesium Hydroxide (Magnesium Hydroxide 30 Ml Udc) 30 ml PO DAILY PRN PRN Reason: Constipation Melatonin (Melatonin 3 Mg Tablet) 6 mg PO QHS COUNTS INCLUDE 234 BEDS AT THE [facility] Last Admin: 09/07/20 20:20 Dose: 6 mg Documented by: Metoclopramide HCl (Metoclopramide 10 Mg Tablet) 10 mg PO Q8H PRN PRN PRN Reason: NAUSEA Miconazole Nitrate (Miconazole-7 Nitrate Cream) 1 applic VAGINAL QHS COUNTS INCLUDE 234 BEDS AT THE [facility] Last Admin: 09/07/20 20:20 Dose: Not Given Documented by: Morphine Sulfate (Morphine (Oral Solution) 10mg/0.5ml Syringe) 10 mg SL/PO Q2H PRN PRN PRN Reason: Pain Score 6-10 Last Admin: 09/07/20 20:24 Dose: 10 mg Documented by: Nitroglycerin (Nitroglycerin (Inpatient Use) 0.4 Mg Tab.Subl) 0.4 mg SL Q5M PRN PRN Reason: CARDIAC/CHEST PAIN Nystatin (Nystatin Powder 15gm Bottle) 1 applic TOPICAL 0600,2200 COUNTS INCLUDE 234 BEDS AT THE [facility]; Protocol Last Admin: 09/08/20 06:22 Dose: 1 applic Documented by: Pancrelipase (Creon 24,[address] Capsule) [facility] Last Admin: 09/08/20 08:27 Dose: 1 capsule Documented by: Pantoprazole Sodium (Pantoprazole Sodium 20 Mg Tablet) 20 mg PO DAILY@0800 COUNTS INCLUDE 234 BEDS AT THE [facility] Last Admin: 09/08/20 08:36 Dose: 20 mg Documented by: Polyethylene Glycol (Polyethylene Glycol 3350 17 Gm Packet) 17 gm PO DAILY COUNTS INCLUDE 234 BEDS AT THE [facility] Last Admin: 09/08/20 06:21 Dose: 17 gm Documented by: Pravastatin Sodium (Pravastatin 40 Mg Tablet) 40 mg PO QHS COUNTS INCLUDE 234 BEDS AT THE [facility] Last Admin: 09/07/20 20:20 Dose: 40 mg Documented by: Senna/Docusate Sodium (Senna/Docusate Sodium 1 Tablet) 1 tablet PO BID COUNTS INCLUDE 234 BEDS AT THE [facility] Last Admin: 09/08/20 06:21 Dose: 1 tablet Documented by: Sodium Chloride (0.9% Saline Lock 10 Ml Syringe) 10 - 40 ml IV UD PRN PRN Reason: SALINE FLUSH Last Admin: 09/08/20 06:32 Dose: 10 ml Documented by: Sodium Chloride (0.9% Saline Lock 10 Ml Syringe) 10 - 40 ml IV UD PRN PRN Reason: Open End PICC Flush Last Admin: 08/25/20 21:14 Dose: 20 ml Documented by: Sodium Chloride (0.9 % Nacl (Sterile) Posiflush 10 Ml) 10 - 40 ml IV UD PRN PRN Reason: Port access or dressing change Tizanidine HCl (Tizanidine Hcl 2 Mg Tablet) 4 mg PO Q8H PRN PRN PRN Reason: BACK PAIN Last Admin: 09/07/20 14:11 Dose: 4 mg Documented by: Trazodone HCl (Trazodone 100 Mg Tablet) 100 mg PO QHS PRN PRN Reason: SLEEP Last Admin: 09/07/20 23:29 Dose: 100 mg Documented by: Venlafaxine HCl (Venlafaxine Hcl 100 Mg Tablet) 100 mg PO BID [facility] Last Admin: 09/08/20 06:21 Dose: 100 mg Documented by: Medical Necessity - Tobacco Use Smoking Status: Never smoker Tobacco Use: Non-smoker Assessment/Plan All Active Problems (Last Reviewed 09/07/20 @ 12:[address] Aman Pang MD) Delayed wound healing (Acute) Other specified peripheral vascular diseases (Acute) Pressure ulcer, heel, right, unstageable (Acute) Diabetic infection of left foot (Acute) Abscess of left foot (Acute) Constipation due to opioid therapy (Acute) Chronic neuropathic pain (Acute) Debility (Acute) Decubitus ulcer of sacral region, stage 2 (Resolved) Left foot cellulitis resolved Left foot ulcer Abscess left foot s/p debridement in OR 08/19/20 Charcot foot deformity left foot Pressure ulcer Diabetes with neuropathy Patient seen and examined bedside. Left foot has continued to improved after surgery. Reviewed wound and blood culture results, patient on IV antibiotics w/ ID/Dr. Webb on consult. Dressing changed with continued daily dressing changes of packing to distal and proximal aspect of incision. Improvement of site noted. Right foot was evaluated today with evidence of pressure change. I recommend offloading with a heel foam protection boot while laying in bed. She states she uses the boot whenever she is in bed. Patient encouraged to wear it when in chair as well or to hang heels off the into the chair to allow for no pressure Strict nonweightbearing left lower extremity with assistive device. LEAS results include left biphasic waveforms, JOSE E 0.81, TBI 0.73. It is noted she has non compressible vessels. Arterial Doppler demonstrated Normal triphasic flow through popliteal. and then elevated psv through anterior tibial and biphasic. Peroneal dimished flow and decreased in distal posterior tibial. Reviewed Dr. Pang's consultation note. Dr. Pang plans to do a angiogram to better evaluate her arterial flow with possible angioplasty. This will be scheduled outpatient. Continue nutritional supplements and proper glycemic control to optimize healing. Plan for patient be discharged tomorrow noted. Patient is to follow-up with the wound care center either with myself or with Dr. Magana on upon discharge. is to come later today to review proper wound care daily dressing changes. All of patient's questions were answered. Please call if questions.
[2020-09-08 11:06] LABS: Bedside Glucose 229 mg/dL (70-110)
[2020-09-08] MEDS: Insulin Lispro 100 UNIT/ML INSULN.PEN 8 UNIT SC (11:50)
[2020-09-08 13:00] VITALS: PULSE 65; RESP 18; O2SAT 98
[2020-09-08 14:02] VITALS: BP 146/62; PULSE 65; RESP 18; TEMP 36; O2SAT 98
--- NOTE | 2020-09-08 14:25 | MDS.RN ---
Completed pain interview for marleny 09/09/20
--- NOTE | 2020-09-08 15:04 | NURSING ---
Dressing to the left foot changed with . removed dressing and packing. cleansed wounds with NS. pat dry. packed the two open areas with 1/4 iodoform gauze and covered with dry dressing, and ABD pad. wrapped with kerlix and DALIA wrap. pt tolerated well. feels he is able to change the dressing at home. pt will let nursing know if wants to watch dressing change again tomorrow before discharge. pt has enough iodoform and Aquacel AG for dressing changes at home. pt states she has enough gauze and kerlix at home as well. no further needs or concerns voiced. will check in with patient in the morning.
[2020-09-08 16:30] LABS: Bedside Glucose 127 mg/dL (70-110)
--- NOTE | 2020-09-08 16:51 | NURSING ---
FAMILY UPDATED AT VISIT TODAY. TEACHING ON WOUND/DRESSING CARE DONE TODAY BY GRICELDA KUMARI/WOUND NURSE
[2020-09-08] MEDS: Insulin Lispro 100 UNIT/ML INSULN.PEN 10 UNIT SC (18:04)
[2020-09-08] MEDS: Isosorbide Mononitrate 60 MG Tablet 120 MG PO (18:06)
[2020-09-08 21:45] LABS: Bedside Glucose 185 mg/dL (70-110)
[2020-09-08] MEDS: morphine (oral solution) 10MG/0.5ML Syringe 10 MG SL/PO (21:45)
[2020-09-08] MEDS: Insulin Lispro 100 UNIT/ML INSULN.PEN SC (21:53)
[2020-09-08] MEDS: MELATONIN 3 MG TABLET 6 MG PO (21:58)
[2020-09-08] MEDS: Levothyroxine 75 MCG Tablet PO (22:00)
[2020-09-08] MEDS: Pravastatin 40 MG Tablet PO (22:00)
[2020-09-08] MEDS: traZODone 100 MG Tablet PO (23:17)
[2020-09-09 05:00] VITALS: BP 162/59; PULSE 52; RESP 18; TEMP 36.6; O2SAT 96
[2020-09-09] MEDS: Nystatin Powder 15gm Bottle 1 APPLIC TOPICAL (06:57)
[2020-09-09] MEDS: Polyethylene Glycol 3350 17 GM PACKET PO (06:57)
[2020-09-09] MEDS: Senna/Docusate Sodium 1 Tablet PO (06:57)
[2020-09-09] MEDS: Menthol/Lanolin/Calamine/Znox 113 GM Tube 1 APPLIC TOPICAL (06:57)
[2020-09-09] MEDS: Celecoxib 200 MG Capsule PO (06:57)
[2020-09-09] MEDS: Clopidogrel Bisulfate 75 MG Tablet PO (06:57)
[2020-09-09 07:00] LABS: Bedside Glucose 104 mg/dL (70-110)
[2020-09-09] MEDS: tiZANidine HCl 2 MG Tablet 4 MG PO (07:01)
--- NOTE | 2020-09-09 07:35 | NURSING ---
In to see if patient would like dressing changed this am. Pt is currently sleeping. Did not awaken. Nursing can change dressing when patient awakens. Unsure if wants to watch dressing change again today. Pt to let nursing know.
[2020-09-09] MEDS: Insulin Lispro 100 UNIT/ML INSULN.PEN 14 UNIT SC (08:03)
[2020-09-09] MEDS: Aspirin E.C. 81 MG Tablet PO (08:05)
[2020-09-09] MEDS: Juven (unflavored) Packet 1 PACKET PO (08:05)
[2020-09-09] MEDS: Allopurinol 100 MG Tablet PO (08:05)
[2020-09-09] MEDS: Lisinopril 10 MG Tablet PO (08:05)
[2020-09-09] MEDS: amLODIPine 5 MG Tablet PO (08:06)
[2020-09-09] MEDS: Isosorbide Mononitrate 60 MG Tablet PO (08:06)
[2020-09-09] MEDS: Carvedilol 25 MG Tablet PO (08:06)
[2020-09-09] MEDS: Pantoprazole Sodium 20 MG Tablet PO (08:06)
[2020-09-09] MEDS: Creon 24,000 unit DR Capsule 1 CAP PO (08:06)
[2020-09-09 11:01] LABS: Bedside Glucose 358 mg/dL (70-110)
[2020-09-09] MEDS: Insulin Lispro 100 UNIT/ML INSULN.PEN SC (11:15)
[2020-09-09] MEDS: Insulin Lispro 100 UNIT/ML INSULN.PEN 8 UNIT SC (11:16)
[2020-09-09] MEDS: morphine (oral solution) 10MG/0.5ML Syringe 10 MG SL/PO (12:31)
--- NOTE | 2020-09-09 12:45 | NURSING ---
in for wound care education today, changed dressing by himself while this nurse supervised. demonstrated good technique, pt tolerated well.
--- NOTE | 2020-09-09 13:45 | DCINST_ITS ---
- Discharge Diagnoses Current Active Problems: Current Active and Chronic Problems (Last Reviewed 09/07/20 @ 12:[address] Aman Pang MD) Diabetic infection of left foot (Acute) Coronary artery disease (Chronic) Hypertension (Chronic) Stroke (Chronic) Constipation due to opioid therapy (Acute) Chronic neuropathic pain (Acute) Debility (Acute) Diabetes mellitus type 2 in obese (Chronic) Depression (Chronic) Gout (Chronic) Vitamin D deficiency (Chronic) Peripheral arterial occlusive disease (Chronic) Charcot's joint of left foot (Chronic) Hyperlipidemia (Chronic) Hypothyroidism (Chronic) Iron deficiency anemia (Chronic) GERD (gastroesophageal reflux disease) (Chronic) You will use the following diet at home:: Calorie/Carbohydrate Controlled (specify 1200, 1400, etc), Cardiac Your food should be the consistency of: Regular Your liquids should be the consistency of: Regular/Thin Discharge Activity: May not drive while taking narcotic pain medications. - or Tizanidine Weight Bearing Status: No weight bearing - Left Leg Keep extremity elevated above heart level: Left Leg Call your doctor if your incision/area has: Sudden Increased Bleeding, Increased Pain/ Swelling, Increased Redness, Swelling at the incision site Call your doctor if you observe: Fever of 101 or Higher, Shortness of breath, Dizziness, Fainting spells, Chest pain, Calf discomfort, Uncontrolled pain Additional Instructions: 1. You have chronic kidney disease stage 3. Celebrex is not a good drug when you have chronic kidney disease. You should not be on this on a regular basis. You MUST stop the Celebrex 5-7 days prior to any scheduled surgeries because it can increase the bleeding. 2. I gave you #20 Tizanidine to get you through the time Dr. Johnson will be gone next week. 3. Your potassium is a bit high. Potassium goes up with chronic kidney disease and you are on a medication called Lisinopril padma can make the potassium go up. I am going to hold the Lisinopril for now to allow the potassium to go down. TAke your BP every day and if it is over 160/85 call your PCP or the college sports assistant for advice. You should have the potassium rechecked within the next week to make sure it is going down. 5. Follow up with Dr. Johnson or whoever is covering for him next week in 3-5 days. Allergies/Adverse Reactions: Allergies doxycycline Allergy (Severe, Verified 08/17/20 15:19) all over body hives and itching atorvastatin calcium [From Lipitor] Allergy (Verified 08/17/20 15:19) Unknown bupropion HCl [From Wellbutrin] Allergy (Verified 08/17/20 15:19) Unknown mannitol [From Reclast] Allergy (Verified 08/17/20 15:19) joint pain, unable to breathe, unable to walk propoxyphene napsylate [From Darvocet-N 100] Allergy (Verified 08/17/20 15:19) Unknown Quinolones Allergy (Verified 08/17/20 15:19) Unknown Tetanus Vaccines and Toxoid [Tetanus Vaccines & Toxoid] Allergy (Verified 08/17 15:19) Chest tightness tizanidine Allergy (Verified 08/17/20 15:19) Unknown zoledronic acid [From Reclast] Allergy (Verified 08/17/20 15:19) joint pain,unable to breathe, unaable to walk JOINT PAIN,UNABLE TO BREATHE,UNABLE TO WALK pravastatin Adverse Reaction (Severe, Verified 08/17/20 15:19) Myalgias gemfibrozil Adverse Reaction (Intermediate, Verified 08/17/20 15:19) Unknown NSAIDS (Non-Steroidal Anti-Inflamma Adverse Reaction (Verified 08/17/20 15:19) Other Medications to take at Discharge Pravastatin Sodium 40 mg PO QHS 03/10/17 amlodipine 5 mg tablet 5 mg PO DAILY tab 05/05/18 Esomeprazole Magnesium 20 mg PO DAILY 09/21/19 clopidogrel 75 mg tablet 75 mg PO DAILY #90 tab 11/23/19 Allopurinol 100 mg PO DAILY 03/17/20 Calcium Citrate 200 mg PO BID #0 03/17/20 aspirin 81 mg tablet,delayed release 81 mg PO DAILY 04/05/20 cbd 1 dose PO 4X/DAY PRN 04/05/20 [id number] 24,000-76,000-120,000 unit capsule,delayed rel 1 cap PO BID cap 04/05/20 Menthol/Lanolin/Calamine/Znox [Calmoseptine Ointment] 1 applic TOPICAL TID 04/19/20 Nitroglycerin (INPATIENT USE) [Nitrostat] 0.4 mg SUBLINGUAL Q5M PRN tab.subl 04/25/20 Carvedilol 25 mg PO BID 08/17/20 Isosorbide Mononitrate [Isosorbide Mononitrate ER] 60 mg PO DAILY 08/17/20 Isosorbide Mononitrate [Isosorbide Mononitrate ER] 120 mg PO DAILY 08/17/20 Levothyroxine Sodium 75 mcg PO QHS 08/17/20 Linaclotide [Linzess] 72 mcg PO DAILY 08/17/20 Melatonin 6 mg PO QHS 08/17/20 Metoclopramide HCl 10 mg PO Q8H PRN 08/17/20 Multivitamin/Iron/Folic Acid [[facility] Spectravite Ultra Women Tb] 0.5 tablet PO BID 08/17/20 Trazodone HCl 100 mg PO QHS PRN 08/17/20 Tryptophan [l-Tryptophan] 500 mg PO DINNER 08/17/20 Venlafaxine HCl 100 mg PO BID 08/17/20 Wheat Dextrin [Benefiber] 15 ml PO DAILY 08/17/20 Insulin Glargine [Lantus SoloStar Pen] 30 units SC BID 08/22/20 Insulin Lispro [Humalog KwikPen] 10 unit SC TIDCM 08/22/20 Insulin Lispro [Humalog KwikPen] See Protocol SC ACHS 08/22/20 Acetaminophen [Tylenol] 1,000 mg PO Q8H PRN PRN #0 tablet 09/09/20 Celecoxib [Celebrex] 200 mg PO DAILY #30 capsule 09/09/20 Blue (unflavored) [Blue Packet] 1 packet PO BIDCM #60 packet 09/09/20 Miconazole Nitrate [Monistat 7] 1 applic VAGINAL QHS tube 09/09/20 Nitroglycerin (INPATIENT USE) [Nitrostat] 0.4 mg SL Q5M PRN #1 bottle 09/09/20 Polyethylene Glycol 3350 [Miralax] 17 gm PO DAILY #30 packet 09/09/20 Senna/Docusate Sodium [Senokot-S] 1 tablet PO BID #60 tablet 09/09/20 Tizanidine HCl 4 mg PO Q8H PRN PRN #20 tablet 09/09/20 Tizanidine HCl [Zanaflex] 4 mg PO Q8H PRN PRN tablet 09/09/20 The following prescriptions were given: Celecoxib [Celebrex] 200 mg PO DAILY #30 capsule Transmission Status: Received by [id number] Blue (unflavored) [Blue Packet] 1 packet PO BIDCM #60 packet Transmission Status: Received by [id number] Polyethylene Glycol 3350 [Miralax] 17 gm PO DAILY #30 packet Transmission Status: Received by [id number] Nitroglycerin (INPATIENT USE) [Nitrostat] 0.4 mg SL Q5M PRN #1 bottle PRN Reason: Cardiac/Chest Pain Transmission Status: Received by [id number] Senna/Docusate Sodium [Senokot-S] 1 tablet PO BID #60 tablet Transmission Status: Received by [id number] Tizanidine HCl 4 mg PO Q8H PRN PRN #20 tablet PRN Reason: Muscle Spasm Transmission Status: Pending to [id number] Primary Care Physician: Con Johnson MD [Primary Care Provider] - Please follow up with your Primary Care Physician in: Con Johnson or whoever is covering for him in 3-5 days and have the potassi Test Results: Test results from this visit will be discussed in further detail at your follow- up appointment, if applicable. Please Follow Up With: Ivanna Magana DPM Please Follow Up With: Maribell Chau, PA Proposed Discharge Date: 09/09/20
--- NOTE | 2020-09-09 13:58 | PCM.DC.SUM ---
Discharge Date and Diagnosis - Problem List Patient Problems: Active and Suspected Problems (Last Reviewed 09/07/20 @ 12:[address] Aman Pang MD) Diabetic infection of left foot (Acute) Constipation due to opioid therapy (Acute) Chronic neuropathic pain (Acute) Debility (Acute) Date of Admission: 08/24/20 Date of Discharge: 09/09/20 - Primary Discharge Diagnosis Acute Problems: Active Problems (Last Reviewed 09/07/20 @ 12:[address] Aman Pang MD) Diabetic infection of left foot (Acute) Constipation due to opioid therapy (Acute) Chronic neuropathic pain (Acute) Debility (Acute) - Secondary Discharge Diagnosis Chronic Problems: Chronic Problems (Last Reviewed 09/07/20 @ 12:[address] 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 Hatfield @ [facility]:(Promus Premier 4.0 X 12 mm L2 stent from distal left main into proximal LCX; Promus Premier RX 2.25 X 12 mm L1 stent in distal LCX) 12/03/2018:Triple vessel CAD of the LAD, LCX, RCA Successful PTCA/YASIR mid LCX with a 2.5 x 20 Promus Synergy stent; 85%-->0-%, no dissection. 12/24/18:FFR of RCA=0.97, negative, left for medical managemen History of coronary artery bypass graft (Chronic) CABG X 3 vessels [facility]:DANIEL to LAD, reverse SVG to dx and to 2nd OM per Dr. Borjas @ [facility] 09/09/2014 Atherosclerotic heart disease of kiana coronary artery without angina pectoris (Chronic) CABG X 3 vessels [facility]: DANIEL to LAD, reverse SVG to dx and to 2nd OM per Dr. Borjas @ [facility] 09/09/2014; PTCA/YASIR to Left main, LAD, and OM1 per Dr. Hatfield 12/21/2014; Carotid artery disease (Chronic) Peripheral vascular disease (Chronic) Hyperlipidemia (Chronic) Hypothyroidism (Chronic) Iron deficiency anemia (Chronic) GERD (gastroesophageal reflux disease) (Chronic) Hospital Course and Treatment Imaging Results: Laboratory Last Values WBC 6.0 K/mm3 (4.4-11.0) 09/06/20 05:15 RBC 3.95 M/mm3 (4.2-5.4) L 09/06/20 05:15 Hgb 11.5 g/dL (12.0-15.0) L 09/06/20 05:15 Hct 37.2 % (37-47) 09/06/20 05:15 MCV 94.2 fL (81-99) 09/06/20 05:15 MCH 29.1 pg (27.0-32.0) 09/06/20 05:15 MCHC 30.9 g/dL (32-36) L 09/06/20 05:15 RDW Std Deviation 49.7 fl (35.1-43.9) H 09/06/20 05:15 RDW Coeff of Marco 14.5 % (11.6-14.6) 09/06/20 05:15 Plt Count 207 K/mm3 (150-450) 09/06/20 05:15 MPV 10.0 fl (6.2-12.0) 09/06/20 05:15 Immature Gran % (Auto) 0.200 % (0.0-0.9) 09/06/20 05:15 Neut % (Auto) 41.3 % (47-70) L 09/06/20 05:15 Lymph % (Auto) 43.5 % (19-41) H 09/06/20 05:15 [place] % (Auto) 10.5 % (0-10) H 09/06/20 05:15 Eos % (Auto) 4.0 % (0-5) 09/06/20 05:15 Baso % (Auto) 0.5 % (0-1) 09/06/20 05:15 Absolute Neuts (auto) 2.5 X10^3/uL (2.0-7.7) 09/06/20 05:15 Absolute Lymphs (auto) 2.60 X10^3/uL (0.83-4.51) 09/06/20 05:15 Nucleated RBC % 0 % (0-5) 09/06/20 05:15 Sodium 136 mmol/L (136-145) 09/08/20 05:10 Potassium 5.2 mmol/L (3.5-5.1) H 09/08/20 05:10 Chloride 112 mmol/L (98-107) H 09/08/20 05:10 Carbon Dioxide 21.0 mmol/L (21.0-32.0) 09/08/20 05:10 Anion Gap 3 (5-15) L 09/08/20 05:10 BUN 52 mg/dL (7-18) H 09/08/20 05:10 Creatinine 1.12 mg/dL (0.55-1.02) H 09/08/20 05:10 Estim Creat Clear Calc 38.63 ml/min 09/08/20 05:10 Est GFR (MDRD) Af Amer 61 mL/min (>60) 09/08/20 05:10 Est GFR (MDRD) Non-Af 51 mL/min (>60) L 09/08/20 05:10 BUN/Creatinine Ratio 46.4 RATIO (10-20) H 09/08/20 05:10 Glucose 89 mg/dL (74-106) 09/08/20 05:10 Calcium 8.9 mg/dL (8.5-10.1) 09/08/20 05:10 Urine Color Yellow (Yellow) 08/24/20 11:05 Urine Clarity Clear (Clear) 08/24/20 11:05 Urine pH 6.0 (5.0 - 8.0) 08/24/20 11:05 Ur Specific [place] 1.010 (1.002-1.030) 08/24/20 11:05 Urine Protein 30 mg/dl (Negative) H 08/24/20 11:05 Urine Glucose (UA) Normal mg/dl (Normal) 08/24/20 11:05 Urine Ketones Negative mg/dl (Negative) 08/24/20 11:05 Urine Occult Blood Negative /ul (Negative) 08/24/20 11:05 Urine Nitrite Negative (Negative) 08/24/20 11:05 Urine Bilirubin Negative mg/dL (Negative) 08/24/20 11:05 Urine Urobilinogen Normal mg/dl (Normal) 08/24/20 11:05 Ur Leukocyte Esterase Negative /ul (Negative) 08/24/20 11:05 Urine RBC 0 SEEN /hpf (0-5) 08/24/20 11:05 Urine WBC 0 SEEN /hpf (0-5) 08/24/20 11:05 Ur Squamous Epith Cells 0 SEEN /hpf (5-10) 08/24/20 11:05 Urine Bacteria 0 SEEN /hpf (None Seen) 08/24/20 11:05 Urine Mucus 0 SEEN /hpf (<or=2+) 08/24/20 11:05 POC Glucose 358 mg/dL (70-110) H 09/09/20 10:43 Microbiology 08/24/20 11:05 Urine Catheter - Catheter Urine Culture - Final Culture exhibits no growth. Consultations 08/23/20 06:35 Consult: Onc/Wound/pyrometer mechanic Routine Comment: Reason for Consult:: left foot wound Palliative care Dr. Espino, [place] and Chana from podiatry Dr. Aman Pang - vascular surgery Operations: None, - - Patient underwent debridement of left foot ulcer and left foot abscess 08/19/2020. Procedures: None Summary of Care Provided: The patient is a 75 year old F who was admitted to the transitional care unit at [facility] on 08/22/2020 for intravenous antibiotics and wound care prior to returning home with her . All in the transitional care unit she was seen at different times by Dr. Zayas, Dr. Espino and Dr. Magana from podiatry. She was also seen by Dr. Aman Pang from vascular surgery for peripheral vascular disease. Dr. Pang plans on doing an angiogram as an outpatient to better evaluate the posterior tibial artery. Following completion of the antibiotics she was discharged home on 09/09/20 she requested a RX for Celebrex and she told me that Dr. Johnson usually gives her a RX but he will be out of town next week and she has only a few at home. I told her that since she has stage 3 CRF and she is going to have an angiogram next week I would advise against taking Celebrex because it would increase the likelihood of progressive renal failure but, at her request I gave her a RX. I told her NOT to take the Celebrex for at least 5-7 days prior to the angiogram. She also requested a RX for Tizanidine to last her until Dr. Johnson is back in the office because she was having increased back pain. Lab on 09/06/2020 and 09/08/2020 showed increased potassium at 5.1 and 5.2 respectively. She is taking lisinopril 10 mg p.o. daily and this was placed on hold at discharge. She was instructed to follow-up with Dr. Johnson or the physician covering for Dr. Johnson in 3 to 5 days for a BMP. If at that time the potassium has returned to normal she may be considered for restarting lisinopril at a lower dose and placing her on a potassium restricted diet. She is going to take her blood pressure daily at home and if it is consistently greater than 160/85 she will call cardiology or Dr. Johnson for advice on what to do. She will follow-up at the wound care center with Dr. Zayas or Dr. Magana going forward. Her came in to learn the proper way to take care of the wound and do the dressings. She is going to be followed by Palliative care following DC. She will remain NWB on the left LE. Alert, oriented x3, no apparent distress Moist mucosa with no mucosal lesions Lungs-clear to auscultation Heart regular rate and rhythm, no murmurs, no gallop Abdomen-obese, soft, nontender, nondistended No peripheral edema She has a boot on the left lower extremity and the wound was not examined. This note was generated with [employer] dictation software. It may contain incorrect words, spelling, and punctuation that were not noted in checking the note before signing. Patient Problems: Active and Suspected Problems (Last Reviewed 09/07/20 @ 12:[address] Aman Pang MD) Diabetic infection of left foot (Acute) Constipation due to opioid therapy (Acute) Chronic neuropathic pain (Acute) Debility (Acute) - Physical Exam Vitals/I&O's: Vital Signs Temp Pulse Resp BP Pulse Ox 97.8 F 52 L 18 162/59 H 96 09/09/20 05:00 09/09/20 05:00 09/09/20 05:00 09/09/20 05:00 09/09/20 05:00 Oxygen Delivery Method Room Air Weight: 178 lb 1 oz Body Mass Index (BMI) 31.4 Finger Stick Blood Glucose 193 Intake and Output for Last 24 Hours 09/07/20 09/08/20 09/09/20 23:59 23:59 23:59 Intake Total 2558.75 / 2558.75 600 / 600 840 / 840 Balance 2558.75 / 2558.75 600 / 600 840 / 840 Laboratory Results 09/08/20 16:15: POC Glucose 127 H 09/08/20 21:37: POC Glucose 185 H 09/09/20 06:54: POC Glucose 104 09/09/20 10:43: POC Glucose 358 H Current Medications Acetaminophen (Acetaminophen 500 Mg Tablet) 1,000 mg PO Q6H PRN PRN PRN Reason: Pain Score 1-3 Last Admin: 09/08/20 06:29 Dose: 1,000 mg Documented by: Allopurinol (Allopurinol 100 Mg Tablet) [facility] Last Admin: 09/09/20 08:05 Dose: 100 mg Documented by: Amlodipine Besylate (Amlodipine 5 Mg Tablet) 5 mg PO DAILY@0800 [facility] Last Admin: 09/09/20 08:06 Dose: 5 mg Documented by: Aspirin (Aspirin E.C. 81 Mg Tablet) 81 mg PO [facility]ILYUN[facility] Last Admin: 09/09/20 08:05 Dose: 81 mg Documented by: Bisacodyl (Bisacodyl 10 Mg Suppository) 10 mg RC DAILY PRN PRN Reason: Constipation Calamine/Phenol (Menthol/Lanolin/Calamine/Znox 113 Gm Tube) 1 applic TOPICAL TID [facility]; Protocol Last Admin: 09/09/20 06:57 Dose: 1 applic Documented by: Carvedilol (Carvedilol 25 Mg Tablet) 25 mg PO BID@0800,1999 [facility] Last Admin: 09/09/20 08:06 Dose: 25 mg Documented by: Celecoxib (Celecoxib 200 Mg Capsule) 200 mg PO DAILY [facility] Last Admin: 09/09/20 06:57 Dose: 200 mg Documented by: Clopidogrel Bisulfate (Clopidogrel Bisulfate 75 Mg Tablet) 75 mg PO DAILY [facility] Last Admin: 09/09/20 06:57 Dose: 75 mg Documented by: Heparin Sodium (Beef Lung) (Heparin Pf Lock 10 Units/Ml 50 Units/5 Ml Syringe) 50 units IV UD PRN PRN Reason: PICC Line Heparin Flush Hydrocortisone (Hydrocortisone 2.5% Crm) 1 applic TOPICAL TID PRN PRN; Protocol PRN Reason: ITCHING Last Admin: 09/03/20 03:36 Dose: 1 applic Documented by: Sodium Chloride () 250 mls @ 15 mls/hr IV .[id number] PRN PRN Reason: Saline Flush Last Infusion: 09/01/20 23:10 Dose: Infused Documented by: Sodium Chloride () 250 mls @ 15 mls/hr IV .[id number] PRN PRN Reason: Additional IVPB Infusion Insulin Glargine (Insulin Glargine 100 Units/Ml Pen) 20 units SC DAILY [facility] Last Admin: 09/09/20 06:58 Dose: 20 units Documented by: Insulin Human Lispro (Insulin Lispro 100 Unit/Ml Insuln.Pen) 14 unit SC BREAKFAST [facility] Last Admin: 09/09/20 08:03 Dose: 8 u Documented by: Insulin Human Lispro (Insulin Lispro 100 Unit/Ml Insuln.Pen) 0 unit SC ACHS [facility]; Protocol Last Admin: 09/09/20 11:15 Dose: 6 units Documented by: Insulin Human Lispro (Insulin Lispro 100 Unit/Ml Insuln.Pen) 8 unit SC LUNCH [facility] Last Admin: 09/09/20 11:16 Dose: 8 u Documented by: Insulin Human Lispro (Insulin Lispro 100 Unit/Ml Insuln.Pen) 10 unit SC DINNER [facility] Last Admin: 09/08/20 18:04 Dose: 6 units Documented by: Isosorbide Mononitrate (Isosorbide Mononitrate 60 Mg Tablet) 120 mg PO 1800 [facility] Last Admin: 09/08/20 18:06 Dose: 120 mg Documented by: Isosorbide Mononitrate (Isosorbide Mononitrate 60 Mg Tablet) 60 mg PO DAILY@0800 [facility] Last Admin: 09/09/20 08:06 Dose: 60 mg Documented by: L-Arginine/L-Glutamine/Calcium HMB (Blue (Unflavored) Packet) 1 packet PO BIDCM [facility] Last Admin: 09/09/20 08:05 Dose: 1 packet Documented by: Levothyroxine Sodium (Levothyroxine 75 Mcg Tablet) 75 mcg PO QHS [facility] Last Admin: 09/08/20 22:00 Dose: 75 mcg Documented by: Lisinopril (Lisinopril 10 Mg Tablet) 10 mg PO DAILY@0800 [facility] Last Admin: 09/09/20 08:05 Dose: 10 mg Documented by: Magnesium Hydroxide (Magnesium Hydroxide 30 Ml Udc) 30 ml PO DAILY PRN PRN Reason: Constipation Melatonin (Melatonin 3 Mg Tablet) [facility] Last Admin: 09/08/20 21:58 Dose: 6 mg Documented by: Metoclopramide HCl (Metoclopramide 10 Mg Tablet) 10 mg PO Q8H PRN PRN PRN Reason: NAUSEA Miconazole Nitrate (Miconazole-7 Nitrate Cream) 1 applic VAGINAL [facility] Last Admin: 09/08/20 21:59 Dose: Not Given Documented by: Morphine Sulfate (Morphine (Oral Solution) 10mg/0.5ml Syringe) 10 mg SL/PO Q2H PRN PRN PRN Reason: Pain Score 6-10 Last Admin: 09/09/20 12:31 Dose: 10 mg Documented by: Nitroglycerin (Nitroglycerin (Inpatient Use) 0.4 Mg Tab.Subl) 0.4 mg SL Q5M PRN PRN Reason: CARDIAC/CHEST PAIN Nystatin (Nystatin Powder 15gm Bottle) 1 applic TOPICAL 0600,2200 [facility]; Protocol Last Admin: 09/09/20 06:57 Dose: 1 applic Documented by: Pancrelipase (Creon 24,[address] Capsule) 1 capsule PO [facility]IDUN[facility] Last Admin: 09/09/20 08:06 Dose: 1 capsule Documented by: Pantoprazole Sodium (Pantoprazole Sodium 20 Mg Tablet) 20 mg PO DAILY@0800 [facility] Last Admin: 09/09/20 08:06 Dose: 20 mg Documented by: Polyethylene Glycol (Polyethylene Glycol 3350 17 Gm Packet) 17 gm PO DAILY [facility] Last Admin: 09/09/20 06:57 Dose: 17 gm Documented by: Pravastatin Sodium (Pravastatin 40 Mg Tablet) 40 mg PO QHS [facility] Last Admin: 09/08/20 22:00 Dose: 40 mg Documented by: Senna/Docusate Sodium (Senna/Docusate Sodium 1 Tablet) 1 tablet PO BID [facility] Last Admin: 09/09/20 06:57 Dose: 1 tablet Documented by: Sodium Chloride (0.9% Saline Lock 10 Ml Syringe) 10 - 40 ml IV UD PRN PRN Reason: SALINE FLUSH Last Admin: 09/08/20 12:55 Dose: 10 ml Documented by: Sodium Chloride (0.9% Saline Lock 10 Ml Syringe) 10 - 40 ml IV UD PRN PRN Reason: Open End PICC Flush Last Admin: 08/25/20 21:14 Dose: 20 ml Documented by: Sodium Chloride (0.9 % Nacl (Sterile) Posiflush 10 Ml) 10 - 40 ml IV UD PRN PRN Reason: Port access or dressing change Tizanidine HCl (Tizanidine Hcl 2 Mg Tablet) 4 mg PO Q8H PRN PRN PRN Reason: BACK PAIN Last Admin: 09/09/20 07:01 Dose: 4 mg Documented by: Trazodone HCl (Trazodone 100 Mg Tablet) 100 mg PO QHS PRN PRN Reason: SLEEP Last Admin: 09/08/20 23:17 Dose: 100 mg Documented by: Venlafaxine HCl (Venlafaxine Hcl 100 Mg Tablet) 100 mg PO BID [facility] Last Admin: 09/09/20 06:57 Dose: 100 mg Documented by: Discharge Activity: May not drive while taking narcotic pain medications. - or Tizanidine Weight Bearing Status: No weight bearing - Left Leg Keep extremity elevated above heart level: Left Leg Call your doctor if your incision/area has: Sudden Increased Bleeding, Increased Pain/ Swelling, Increased Redness, Swelling at the incision site Call your doctor if you observe: Fever of 101 or Higher, Shortness of breath, Dizziness, Fainting spells, Chest pain, Calf discomfort, Uncontrolled pain Home Medications: Medications to take at Discharge Pravastatin Sodium 40 mg PO QHS 03/10/17 amlodipine 5 mg tablet 5 mg PO DAILY tab 05/05/18 Esomeprazole Magnesium 20 mg PO DAILY 09/21/19 clopidogrel 75 mg tablet 75 mg PO DAILY #90 tab 11/23/19 Allopurinol 100 mg PO DAILY 03/17/20 Calcium Citrate 200 mg PO BID #0 03/17/20 aspirin 81 mg tablet,delayed release 81 mg PO DAILY 04/05/20 cbd 1 dose PO 4X/DAY PRN 04/05/20 [id number] 24,000-76,000-120,000 unit capsule,delayed rel 1 cap PO BID cap 04/05/20 Menthol/Lanolin/Calamine/Znox [Calmoseptine Ointment] 1 applic TOPICAL TID 04/19/20 Nitroglycerin (INPATIENT USE) [Nitrostat] 0.4 mg SUBLINGUAL Q5M PRN tab.subl 04/25/20 Carvedilol 25 mg PO BID 08/17/20 Isosorbide Mononitrate [Isosorbide Mononitrate ER] 60 mg PO DAILY 08/17/20 Isosorbide Mononitrate [Isosorbide Mononitrate ER] 120 mg PO DAILY 08/17/20 Levothyroxine Sodium 75 mcg PO QHS 08/17/20 Linaclotide [Linzess] 72 mcg PO DAILY 08/17/20 Melatonin 6 mg PO QHS 08/17/20 Metoclopramide HCl 10 mg PO Q8H PRN 08/17/20 Multivitamin/Iron/Folic Acid [[facility]vs Spectravite Ultra Women Tb] 0.5 tablet PO BID 08/17/20 Trazodone HCl 100 mg PO QHS PRN 08/17/20 Tryptophan [l-Tryptophan] 500 mg PO DINNER 08/17/20 Venlafaxine HCl 100 mg PO BID 08/17/20 Wheat Dextrin [Benefiber] 15 ml PO DAILY 08/17/20 Insulin Glargine [Lantus SoloStar Pen] 30 units SC BID 08/22/20 Insulin Lispro [Humalog KwikPen] 10 unit SC TIDCM 08/22/20 Insulin Lispro [Humalog KwikPen] See Protocol SC ACHS 08/22/20 Acetaminophen [Tylenol] 1,000 mg PO Q8H PRN PRN #0 tablet 09/09/20 Celecoxib [Celebrex] 200 mg PO DAILY #30 capsule 09/09/20 Blue (unflavored) [Blue Packet] 1 packet PO BIDCM #60 packet 09/09/20 Miconazole Nitrate [Monistat 7] 1 applic VAGINAL QHS tube 09/09/20 Nitroglycerin (INPATIENT USE) [Nitrostat] 0.4 mg SL Q5M PRN #1 bottle 09/09/20 Polyethylene Glycol 3350 [Miralax] 17 gm PO DAILY #30 packet 09/09/20 Senna/Docusate Sodium [Senokot-S] 1 tablet PO BID #60 tablet 09/09/20 Tizanidine HCl 4 mg PO Q8H PRN PRN #20 tablet 09/09/20 Tizanidine HCl [Zanaflex] 4 mg PO Q8H PRN PRN tablet 09/09/20 Following Prescriptions Were Given to Patient: Celecoxib [Celebrex] 200 mg PO DAILY #30 capsule Transmission Status: Received by [id number] Blue (unflavored) [Blue Packet] 1 packet PO BIDCM #60 packet Transmission Status: Received by [id number] Polyethylene Glycol 3350 [Miralax] 17 gm PO DAILY #30 packet Transmission Status: Received by [id number] Nitroglycerin (INPATIENT USE) [Nitrostat] 0.4 mg SL Q5M PRN #1 bottle PRN Reason: Cardiac/Chest Pain Transmission Status: Received by [id number] Senna/Docusate Sodium [Senokot-S] 1 tablet PO BID #60 tablet Transmission Status: Received by [id number] Tizanidine HCl 4 mg PO Q8H PRN PRN #20 tablet PRN Reason: Muscle Spasm Transmission Status: Received by [id number] Primary Care Physician: Con Johnson MD [Primary Care Provider] - Please follow up with your Primary Care Physician in: Con Johnson or whoever is covering for him in 3-5 days and have the potassi Please Follow Up With: Ivanna Magana DPM Please Follow Up With: Maribell Chau, PA Disposition: Home Minutes spent on discharge:: 30 Patient Condition:: Stable Medical Necessity - Tobacco Use Smoking Status: Never smoker Tobacco Use: Non-smoker Meaningful Use Info Meaningful Use Diagnoses (Choose all that apply): None applicable Inpatient E&M: 53890 Disch Hosp
[2020-09-09 13:59] VITALS: BP 149/58; PULSE 70; RESP 16; TEMP 35.9; O2SAT 98
== END 2020-09-09 14:30 | disposition home or self-care (01) | DRG 638 ==
PROVIDERS: Internal Medicine; Admitting Provider Family Medicine Geriatric Medicine; PCP Family Medicine; Visit Provider Family Medicine Geriatric Medicine
DX: E11.628 Type 2 diabetes mellitus with other skin complications (principal); L03.116 Cellulitis of left lower limb; L02.612 Cutaneous abscess of left foot; K21.9 Gastro-esophageal reflux disease without esophagitis; E78.5 Hyperlipidemia, unspecified; E11.51 Type 2 diabetes mellitus with diabetic peripheral angiopathy without gangrene; E11.610 Type 2 diabetes mellitus with diabetic neuropathic arthropathy; E11.42 Type 2 diabetes mellitus with diabetic polyneuropathy; F32.9 Major depressive disorder, single episode, unspecified; I25.10 Atherosclerotic heart disease of native coronary artery without angina pectoris; F41.9 Anxiety disorder, unspecified; K86.89 Other specified diseases of pancreas; E03.9 Hypothyroidism, unspecified; E11.22 Type 2 diabetes mellitus with diabetic chronic kidney disease; I12.9 Hypertensive chronic kidney disease with stage 1 through stage 4 chronic kidney disease, or unspecified chronic kidney disease; M10.9 Gout, unspecified; E66.9 Obesity, unspecified; K59.03 Drug induced constipation; T40.2X5A Adverse effect of other opioids, initial encounter; L89.610 Pressure ulcer of right heel, unstageable; D50.9 Iron deficiency anemia, unspecified; N18.32 Chronic kidney disease, stage 3b; Z79.02 Long term (current) use of antithrombotics/antiplatelets; Z79.4 Long term (current) use of insulin; Z79.899 Other long term (current) drug therapy; Z68.31 Body mass index [BMI] 31.0-31.9, adult; Z86.718 Personal history of other venous thrombosis and embolism; Z89.421 Acquired absence of other right toe(s)
CPT/HCPCS: 36415; 77085; 80048; 81001; 82962; 85025; 87086; 93923; 93926; 97110; 97116; 97161; 97166; 97530; 97535; 97802; J7030; J7050; A4216; J0295

== ENCOUNTER → 2020-08-26 11:19 | Outpatient (CLI) | payer MEDICARE, OTHER, SELFPAY ==
[2020-08-22 17:50] VITALS: BMI 31.4
--- NOTE | 2020-08-26 12:07 | ART_ITS ---
Reason For Study: DM, Ulcer Procedure A bilateral lower extremity continuous wave Doppler with analog waveform analysis,segmental pressures,and ankle brachial indexes without exercise. Left Segmental Pressures Left brachial= 168mmHg. Left posterior tibial artery = 136mmHg. Left dorsalis pedis artery = >254mmHg. Left digit = 123 mmHg. Right Segmental Pressures Right posterior tibial artery = >254mmHg. Right dorsalis pedis artery = >254mmHg. Indices Rt MELTING FURNACE SKIMMER and DPA are non compressible. The left ankle brachial index by the posterior tibial artery is 0.81. Lt DPA is non compressible. The left digital-brachial index is 0.73. VL/Lower Ext Art Exam w/o Exercis Interpretation Summary Triphasic Doppler waveforms are noted at ankle level on the right. Biphasic Dop pler waveforms are noted at ankle level on the left. Pulse-volume recordings appear satisfactory b ilaterally. The resting right ankle-brachial index could not be determined due to the non-compr essibility of the vasculature. The resting left ankle-brachial index is mildly diminished. The ri ght digital-brachial index was not determined. The left digital-brachial index is normal. There is evidence of arterial calcification bilaterally. There is no evidence o f significant arterial occlusive disease in the right lower extremity. There is evidence of m ild arterial occlusive disease in the left lower extremity. The presence of arterial calcification may artifactually elevate arterial indic es, which may mask the presence of arterial occlusive disease. In this regard, clinical correlatio n is advised. Ordering Physician: Nicholas Espino Referring Physician: Con Johnson Performed By: Joyce Wahl RDCS/RVT
== END ==
PROVIDERS: PCP Family Medicine; Visit Provider Podiatrist
DX: E11.51 Type 2 diabetes mellitus with diabetic peripheral angiopathy without gangrene (principal); L97.909 Non-pressure chronic ulcer of unspecified part of unspecified lower leg with unspecified severity
CPT/HCPCS: 93923

== ENCOUNTER → 2020-09-01 14:56 | Outpatient (CLI) | payer MEDICARE, OTHER, SELFPAY ==
[2020-08-22 17:50] VITALS: BMI 31.4
--- NOTE | 2020-09-01 15:00 | BD_ITS ---
STUDY: DUAL ENERGY X-RAY ABSORPTIOMETRY / DXA REASON FOR EXAM: Female, 75 years old. Z78.0. The patient is postmenopausal. Loss of height. TECHNIQUE: Bone Mineral Density (BMD) measurements of lumbar spine and bilateral hips were obtained. COMPARISON: Comparison is made with prior examination dated 01/05/2014. FINDINGS: Lumbar Spine (L1-L4): g/cm2 (0.965) / T-score (-2.0) / Z-score (-0.2) Findings are suggestive of osteopenia with a moderate fracture risk. Increased kyphosis. Left Femur Total: g/cm2 (0.740) / T-score (-2.1) / Z-score (-0.5) Left Femoral Neck: g/cm2 (0.789) / T-score (-1.8) / Z-score (0.0) Right Femur Total: g/cm2 (0.766) / T-score (-1.9) / Z-score (-0.3) Right Femoral Neck: g/cm2 (0.685) / T-score (-2.5) / Z-score (-0.7) The T-Scores on the most recent prior examination were: Lumbar Spine (L1-L4): There has been improvement of bone density since the previous examination. Left Femur Total: which represents a worsening of 6.1%. Right Femur Total: which represents a worsening of 8.2%. BD/DXA BONE DENS W/VERT FX ASMT IMPRESSION: The patient is considered osteopenic as outlined below according to World [employer] Organization (WHO) criteria with a high fracture risk. There has been worsening of bone density since the previous examination. Reference Information: The T-score is the number of standard deviations above or below the standard which is normal for young adults at their peak bone mineral density. The World Health Organization (WHO) interprets the T-scores as follows: Above -1 Normal bone density Between -1 and -2.5 Osteopenia Equal to / or below -2.5 Osteoporosis As a practical clinical guideline, osteopenia may be graded as follows: Mild -1 through -1.5 Moderate -1.6 through -2.0 Severe -2.1 through -2.4 The Z-score is the number of standard deviations above or below age-matched controls. A Z-score of less than -1.5 would be considered abnormal. References: 1. NIH Osteoporosis and Related Bone Diseases www osteo.org 2. International Society for Clinical Densitometry www iscd.org 3. National Osteoporosis Foundation www nof.org Electronically Signed: Delvin Morton MD at 12:28 EDT , Service support ,
== END ==
PROVIDERS: PCP Family Medicine; Referring Provider Family Medicine; Visit Provider Family Medicine
DX: Z78.0 Asymptomatic menopausal state (principal); M85.80 Other specified disorders of bone density and structure, unspecified site
CPT/HCPCS: 77085

== ENCOUNTER → 2020-09-02 09:19 | Outpatient (CLI) | payer MEDICARE, OTHER, SELFPAY ==
[2020-08-22 17:50] VITALS: BMI 31.4
--- NOTE | 2020-09-02 09:20 | ADUL_ITS ---
Reason For Study: Ulcer Left Velocities Ext Iliac Artery, dist = 158 cm./sec. Common Femoral Artery, mid = 134 cm./sec. Supf. Femoral Artery, prox = 124 cm./sec. Supf. Femoral Artery, mid = 124 cm./sec. Supf. Femoral Artery, dist = 139 cm./sec. Profunda Femoral Artery = 164 cm./sec. Popliteal Artery, proximal, = 130 cm./sec. Popliteal Artery, mid = 64 cm./sec. Popliteal Artery, distal = 65 cm./sec. Post. Tibial Artery, prox = 39 cm./sec. Post Tibial Artery, mid = 30 cm./sec. Post Tibial Artery, dist. = 17 cm./sec. Peroneal Artery, prox = 21 cm./sec. Peroneal Artery, mid = 48 cm./sec. Peroneal Artery,dist. = 31 cm./sec. Ant.Tibial Artery, prox = 191 cm./sec. Ant Tibial Artery, mid = 127 cm./sec. Ant. Tibial Artery, distal = 143 cm./sec. Procedure Exam performed portable in patient room. /US Art Duplex Unilat Lower Ext Interpretation Summary Normal triphasic flow through popliteal. and then elevated psv through anterior tibial and biphasic. Peroneal dimished flow and decreased in distal posterior tibial. Ordering Physician: Ivanna Magana Referring Physician: Con Johnson Performed By: Joyce Wahl, ISA, RVT
== END ==
PROVIDERS: PCP Family Medicine; Referring Provider Podiatrist; Visit Provider Podiatrist
DX: I73.9 Peripheral vascular disease, unspecified (principal); E11.621 Type 2 diabetes mellitus with foot ulcer; L97.529 Non-pressure chronic ulcer of other part of left foot with unspecified severity
CPT/HCPCS: 93926

== ENCOUNTER → 2020-09-12 10:06 | Outpatient (CLI) | payer MEDICARE, OTHER, SELFPAY ==
[2020-08-22 17:50] VITALS: BMI 31.4
[2020-09-12 12:44] LABS: Erythrocyte Sedimentation Rate 22 mm/hr (0-30)
[2020-09-12 12:50] LABS: Absolute Lymphocyte Count 1.88 X10^3/uL (0.83-4.51); Absolute Neutrophil Count 5.8 X10^3/uL (2.0-7.7); Basophil# 0.03 X10^3/uL; Basophil% 0.3 % (0-1); Eosinophil# 0.27 X10^3/uL; Eosinophils% 3.1 % (0-5); Hematocrit 38.6 % (37-47); Hemoglobin 12.2 g/dL (12.0-15.0); Lymphocyte # 1.88 X10^3/ul (0.83-4.51); Lymphocyte % 21.7 % (19-41); Mean Corp Hgb Conc 31.6 g/dL (32-36); Mean Corpuscular Hgb 30.1 pg (27.0-32.0); Mean Corpuscular Volume 95.3 fL (81-99); Mean Platelet Vol. 10.3 fl (6.2-12.0); Monocyte# 0.71 X10^3/uL; Monocyte% 8.2 % (0-10); NRBC Flagged by Analyzer 0 % (0-5); Neutrophil # 5.76 X10^3/uL (2.7-7.7); Neutrophil % 66.5 % (47-70); Platelet Count 194 K/mm3 (150-450); RBC Distribution Width CV 14.5 % (11.6-14.6); RBC Distribution Width SD 50.7 fl (35.1-43.9); Red Blood Count 4.05 M/mm3 (4.2-5.4); White Blood Count 8.7 K/mm3 (4.4-11.0)
[2020-09-12 13:08] LABS: ALB/GLOB Ratio 0.7 RATIO (0.9-2.4); AST(SGOT) 28 U/L (15-37); Alanine Aminotransfer ALT/SGPT 42 U/L (13-56); Albumin, Serum 2.8 g/dL (3.2-5.0); Alkaline Phosphatase 101 U/L (45-117); Anion Gap 7 (5-15); BUN 48 mg/dL (7-18); BUN/Creat Ratio 31.8 RATIO (10-20); CRP < 2.90 mg/L (0.0-3.0); Calcium,Total 8.2 mg/dL (8.5-10.1); Chloride 104 mmol/L (98-107); Creatinine, Serum 1.51 mg/dL (0.55-1.02); EST Glomerular Filtration Rate 36 mL/min (>60); Est Glom Filt Rate - Afr Amer 43 mL/min (>60); Globulin 3.9 g/dL (2.2-4.2); Glucose 181 mg/dL (74-106); Potassium 5.1 mmol/L (3.5-5.1); Protein, Total 6.7 g/dL (6.4-8.2); Sodium Level 133 mmol/L (136-145); Thyroid Stim Hormone (TSH) 0.61 uIU/mL (0.358-3.74)
[2020-09-12 13:12] LABS: PTHIN 120.1 pg/mL (18.4-80.1)
== END ==
PROVIDERS: PCP Family Medicine; Visit Provider Family Medicine
DX: E11.621 Type 2 diabetes mellitus with foot ulcer (principal); E11.40 Type 2 diabetes mellitus with diabetic neuropathy, unspecified; E03.9 Hypothyroidism, unspecified
CPT/HCPCS: 36415; 80053; 83970; 84443; 85025; 85652; 86140

== ENCOUNTER 2020-09-19 14:41 | Inpatient (IN) | payer MEDICARE, OTHER, SELFPAY ==
[2020-08-22 17:50] VITALS: BMI 31.4
[2020-09-19 14:42] VITALS: BP 112/50; PULSE 72; RESP 18; TEMP 36.9; O2SAT 98; BMI 29.2
--- NOTE | 2020-09-19 16:18 | EKG12_ITS ---
Test Reason : Blood Pressure : / mmHG Vent. Rate : 078 BPM Atrial Rate : 078 BPM P-R Int : 212 ms QRS Dur : 090 ms QT Int : 376 ms P-R-T Axes : 063 -31 077 degrees QTc Int : 428 ms Sinus rhythm with 1st degree A-V block Left axis deviation Abnormal ECG Confirmed by ALEJANDRO ANAYA, RODRIGUE ([id number]), word processing supervisor CAMERON CALLES ([id number]) on 09/22/2020 9:02:23 AM Referred By: ILENE Confirmed By:RODRIGUE ALLEN MD
--- NOTE | 2020-09-19 16:36 | ED.VIS.GEN ---
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 The office patient's blood sugar was 500 per report. Patient states of the past 2 to 3 days she has been feeling under the weather and flulike. She states has had increased pain in her left foot with increased drainage from a chronic wound at the base. She has had body aches and nausea. She she had a large bowel movement yesterday it was normal. She denies any fever, chest pain or cough. Patient had a prolonged hospitalization and she was discharged hospital 10 days ago for the same thing this foot infection. Podiatry today was concerned that she has worsening infection and require admission. Incision and drainage performed in the office. Patient is also been referred to vascular surgery for angiogram for concern of poor blood flow to the foot which is causing wound healing issues. Chart review showed the patient was admitted from 08/24-09/09 in the TCU. Past Medical History - Allergies and Home Meds Allergies/Adverse Reactions: Allergies doxycycline Allergy (Severe, Verified 08/17/20 15:19) all over body hives and itching atorvastatin calcium [From Lipitor] Allergy (Verified 08/17/20 15:19) Unknown bupropion HCl [From Wellbutrin] Allergy (Verified 08/17/20 15:19) Unknown mannitol [From Reclast] Allergy (Verified 08/17/20 15:19) joint pain, unable to breathe, unable to walk propoxyphene napsylate [From Darvocet-N 100] Allergy (Verified 08/17/20 15:19) Unknown Quinolones Allergy (Verified 08/17/20 15:19) Unknown Tetanus Vaccines and Toxoid [Tetanus Vaccines & Toxoid] Allergy (Verified 08/17/20 15:19) Chest tightness tizanidine Allergy (Verified 08/17/20 15:19) Unknown zoledronic acid [From Reclast] Allergy (Verified 08/17/20 15:19) joint pain,unable to breathe, unaable to walk JOINT PAIN,UNABLE TO BREATHE,UNABLE TO WALK pravastatin Adverse Reaction (Severe, Verified 08/17/20 15:19) Myalgias gemfibrozil Adverse Reaction (Intermediate, Verified 08/17/20 15:19) Unknown NSAIDS (Non-Steroidal Anti-Inflamma Adverse Reaction (Verified 08/17/20 15:19) Other Past Medical History: - - Diabetes mellitus with polyneuropathy, chronic foot wound, left, hypothyroid, IBS, hyperlipidemia, history of stroke, GERD, coronary artery disease Surgical History: angioplasty - Stent., appendectomy, coronary bypass surgery, gastric bypass, tonsillectomy, - - , Carpal tunnel release, cardiac catheterization, carotid endarterectomy, right foot transmetatarsal amputation, exostectomy left foot Smoking Status: Never smoker - Family History Paternal Family History: Family History (Last Reviewed 09/19/20 @ 20:[address] Abdulaziz Gillette MD) Mother Cancer CVA (cerebral vascular accident) CAD (coronary artery disease) Father CAD (coronary artery disease) History of coronary artery bypass graft Sister CAD (coronary artery disease) Multiple sclerosis Other Anxiety Bleeding disorder Depression Diabetes Heart disease High cholesterol Hypertension Family History: Reports: No pertinent history Maternal Family History: Family History (Last Reviewed 09/19/20 @ 20:[address] Abdulaziz Gillette MD) Mother Cancer CVA (cerebral vascular accident) CAD (coronary artery disease) Father CAD (coronary artery disease) History of coronary artery bypass graft Sister CAD (coronary artery disease) Multiple sclerosis Other Anxiety Bleeding disorder Depression Diabetes Heart disease High cholesterol Hypertension Family History: Reports: No pertinent history Review of Systems General: Reports: Chills, Malaise. Denies: Fever, Sweats Eyes: Denies: Visual changes - bilaterally, Diplopia ENT: Denies: Rhinorrhea, Sore throat Cardiovascular: Denies: Chest pain, Palpitations Respiratory: Denies: Dyspnea, Cough, Dyspnea on exertion Gastrointestinal: Reports: Nausea. Denies: Abdominal pain, Vomiting, Diarrhea, Melena, Hematochezia Genitourinary: Denies: Dysuria, Hematuria, Frequency Musculoskeletal: Reports: Neck pain, Back pain, Extremity Pain - left foot Skin: Reports: Wounds - left foot . Denies: Rash Neurological: Denies: Headache, Weakness, Numbness Physical Exam Vital Signs/Narrative: Vital Signs Temp Pulse Resp BP Pulse Ox 09/19/20 14:42 98.4 F 72 18 112/50 L 98 Inital Vital Signs reviewed: Yes General: Well nourished, Well developed, No Acute Distress Head: Normocephalic, Atraumatic Eyes: Perrl, EOMI ENT: Moist mucous membranes, No rhinorrhea Neck: Supple, Nontender Cardiovascular: Regular rate, Regular rhythm, No murmurs Respiratory: No distress, CTA bilaterally, Chest nontender Abdomen: Soft, Nontender, Nondistended, Normal bowel sounds Back: Nontender, Normal Inspection Extremities: No edema, Tenderness - Plantar aspect of the left foot, on the central aspect there is wound that is packed. There is surrounding erythema. There is drainage present. . Negative for: Edema, Calf Tenderness Skin: Normal color, No rash, - - Wound to the base of the left foot Neurological: Alert, Oriented x3, Cranial nerves II-XII grossly intact, Normal Strength, Normal Sensation Psychological: Normal affect, Normal Mood Diagnostic/Tx/Re-eval Chest X-Ray - ED: 1 View, Read by ED Physician, Read by Radiologist, No Acute Disease Clinical Impression(s) from Imaging Studies Chest X-Ray 09/19/20 17:05 IMPRESSION: Degenerative changes, as described above. No demonstrated acute cardiopulmonary process. Electronically Signed: John Malin MD at 17:27 EDT , Service support , Foot X-Ray 09/19/20 17:05 IMPRESSION: Severe degenerative and arthritic changes throughout the left foot without acute traumatic abnormality or significant interval change since the previous study Pes planus Calcaneal spurs Electronically Signed: John Malin MD at 17:29 EDT , Service support , Laboratory Data 09/19/20 09/19/20 09/19/20 17:45 17:45 17:45 WBC 9.8 RBC 3.68 L Hgb 11.2 L Hct 33.8 L MCV 91.8 MCH 30.4 MCHC 33.1 RDW Std Deviation 47.9 H RDW Coeff of Marco 14.0 Plt Count 178 MPV 9.8 Immature Gran % (Auto) 0.900 Neut % (Auto) 76.3 H Lymph % (Auto) 13.4 L [place] % (Auto) 9.1 Eos % (Auto) 0.2 Baso % (Auto) 0.1 Absolute Neuts (auto) 7.5 Absolute Lymphs (auto) 1.31 Nucleated RBC % 0 ESR 44 H Sodium 129 L Potassium 4.7 Chloride 101 Carbon Dioxide 20.0 L Anion Gap 8 BUN 41 H Creatinine 1.43 H Estim Creat Clear Calc 30.26 Est GFR (MDRD) Af Amer 46 L Est GFR (MDRD) Non-Af 38 L BUN/Creatinine Ratio 28.7 H Glucose 383 H Lactic Acid 1.1 Calcium 8.0 L Total Bilirubin 0.30 AST 16 ALT 28 Alkaline Phosphatase 91 Troponin I 0.182 H C-React Prot Ext Range 206.00 H Total Protein 7.3 Albumin 2.4 L Globulin 4.9 H Albumin/Globulin Ratio 0.5 L Lipase 35 L Urine Color Urine Clarity Urine pH Ur Specific Liberal Urine Protein Urine Glucose (UA) Urine Ketones Urine Occult Blood Urine Nitrite Urine Bilirubin Urine Urobilinogen Ur Leukocyte Esterase Urine RBC Urine WBC Ur Squamous Epith Cells Urine Bacteria Urine Mucus Acetone Level 09/19/20 09/19/20 17:45 18:30 WBC RBC Hgb Hct MCV MCH MCHC RDW Std Deviation RDW Coeff of Marco Plt Count MPV Immature Gran % (Auto) Neut % (Auto) Lymph % (Auto) [place] % (Auto) Eos % (Auto) Baso % (Auto) Absolute Neuts (auto) Absolute Lymphs (auto) Nucleated RBC % ESR Sodium Potassium Chloride Carbon Dioxide Anion Gap BUN Creatinine Estim Creat Clear Calc Est GFR (MDRD) Af Amer Est GFR (MDRD) Non-Af BUN/Creatinine Ratio Glucose Lactic Acid Calcium Total Bilirubin AST ALT Alkaline Phosphatase Troponin I C-React Prot Ext Range Total Protein Albumin Globulin Albumin/Globulin Ratio Lipase Urine Color Yellow Urine Clarity Clear Urine pH 5.0 Ur Specific Liberal 1.010 Urine Protein 30 H Urine Glucose (UA) 1000 H Urine Ketones Negative Urine Occult Blood 25 H Urine Nitrite Negative Urine Bilirubin Negative Urine Urobilinogen Normal Ur Leukocyte Esterase 100 H Urine RBC 0 SEEN Urine WBC 5-10 SEEN Ur Squamous Epith Cells 0-5 SEEN Urine Bacteria 0 SEEN Urine Mucus 0 SEEN Acetone Level NEGATIVE - Rhythm Strip Rhythm Strip: Sinus Rhythm Rate: 78 Ectopy: None - EKG Initial EKG Interpretation: Sinus Rhythm, - - Normal sinus rhythm at a rate of 78 Left axis deviation Normal intervals Normal ST segments - Medical Decision Making Evaluate for worsening infection of the left foot. She is placed on IV vancomycin and Zosyn for this. Patient does not have a leukocytosis. She does have an elevated CRP of 206 which is acute. Because patient's been complained of flulike symptoms and generalized weakness I also did a cardiac work-up including a troponin. Her troponin is elevated 0.182. Patient does have a history of elevated troponin but intermittently has a normal troponin. I am not sure the exact cause however I do not think this is ACS given she is not having chest pain or acute EKG changes. Her glucose is elevated at 383 however her ketones are negative and she has a normal anion gap. Patient is given IV fluids in the emergency room. Creatinine is elevated at 1.43 but this appears to be her baseline. Patient is a mild hyponatremia of 129. Patient be admitted for further treatment of her foot wound as well as cardiac monitoring. She is agreeable with this plan of care. Cultures are pending. ED Disposition - Plan for ED Patient: Disposition: Acute Care Hospital [facility] Diagnosis: Cellulitis of left foot, Diabetic infection of left foot, Elevated troponin
--- NOTE | 2020-09-19 17:05 | RAD_ITS ---
STUDY: X-RAY CHEST REASON FOR EXAM: Female, 75 years old. Weakness TECHNIQUE: Single AP portable view of the chest. COMPARISON: None. FINDINGS: There are interstitial changes of the lungs. There is no demonstrated pleural abnormality. Sternal cerclage wires and vascular clips are present from a prior sternotomy and coronary artery bypass graft procedure (CABG). Normal mediastinum and oniel. Normal visualized pulmonary arteries. There is atherosclerotic calcification of the aortic arch with tortuosity. There are diffuse degenerative changes of the visualized thoracic spine. There is degenerative osteoarthritis of the bilateral shoulders. There is no demonstrated abnormality of the visualized soft tissue structures of the upper abdomen. RAD/Chest 1 View (Portable) IMPRESSION: Degenerative changes, as described above. No demonstrated acute cardiopulmonary process. Electronically Signed: John Malin MD at 17:27 EDT , Service support ,
--- NOTE | 2020-09-19 17:05 | RAD_ITS ---
STUDY: X-RAY - LEFT FOOT CLINICAL: Female, 75 years old. Infection TECHNIQUE: 3 view(s) of the foot. COMPARISON: 08/17/2020 FINDINGS: The bones are diffusely demineralized. Normal talus and tarsal bones. Calcaneal spurs. Persistent collapse and severe arthrosis of the midfoot with pes planus. Normal metatarsi. There is degenerative arthrosis of the metatarsophalangeal joint of the hallux . Normal tibial and fibular sesamoid bones. Normal interphalangeal joint of the great toe. Normal phalanges of the great toe. Normal second through fifth metatarsophalangeal joints. Stable PIP and DIP joint arthrosis The soft tissue structures are unremarkable. RAD/Foot min 3 Views IMPRESSION: Severe degenerative and arthritic changes throughout the left foot without acute traumatic abnormality or significant interval change since the previous study Pes planus Calcaneal spurs Electronically Signed: John Malin MD at 17:29 EDT , Service support ,
[2020-09-19] MEDS: Ondansetron 4 MG/2 ML Vial IV (18:03)
[2020-09-19 18:07] VITALS: BP 144/54; PULSE 87; RESP 18; TEMP 36.9; O2SAT 100
[2020-09-19 18:09] LABS: Absolute Lymphocyte Count 1.31 X10^3/uL (0.83-4.51); Absolute Neutrophil Count 7.5 X10^3/uL (2.0-7.7); Basophil# 0.01 X10^3/uL; Basophil% 0.1 % (0-1); Eosinophil# 0.02 X10^3/uL; Eosinophils% 0.2 % (0-5); Hematocrit 33.8 % (37-47); Hemoglobin 11.2 g/dL (12.0-15.0); Lymphocyte # 1.31 X10^3/ul (0.83-4.51); Lymphocyte % 13.4 % (19-41); Mean Corp Hgb Conc 33.1 g/dL (32-36); Mean Corpuscular Hgb 30.4 pg (27.0-32.0); Mean Corpuscular Volume 91.8 fL (81-99); Mean Platelet Vol. 9.8 fl (6.2-12.0); Monocyte# 0.89 X10^3/uL; Monocyte% 9.1 % (0-10); NRBC Flagged by Analyzer 0 % (0-5); Neutrophil # 7.46 X10^3/uL (2.7-7.7); Neutrophil % 76.3 % (47-70); Platelet Count 178 K/mm3 (150-450); RBC Distribution Width SD 47.9 fl (35.1-43.9); Red Blood Count 3.68 M/mm3 (4.2-5.4); White Blood Count 9.8 K/mm3 (4.4-11.0)
[2020-09-19 18:17] LABS: Erythrocyte Sedimentation Rate 44 mm/hr (0-30)
[2020-09-19] MEDS: HYDROcodone Bitartrate/Apap 5/325 Tablet PO (18:20)
[2020-09-19 18:31] LABS: ALB/GLOB Ratio 0.5 RATIO (0.9-2.4); AST(SGOT) 16 U/L (15-37); Alanine Aminotransfer ALT/SGPT 28 U/L (13-56); Albumin, Serum 2.4 g/dL (3.2-5.0); Alkaline Phosphatase 91 U/L (45-117); Anion Gap 8 (5-15); BUN 41 mg/dL (7-18); BUN/Creat Ratio 28.7 RATIO (10-20); Chloride 101 mmol/L (98-107); Creatinine, Serum 1.43 mg/dL (0.55-1.02); EST Glomerular Filtration Rate 38 mL/min (>60); Est Glom Filt Rate - Afr Amer 46 mL/min (>60); Estimated Creatinine Clearance 30.26 ml/min; Globulin 4.9 g/dL (2.2-4.2); Glucose 383 mg/dL (74-106); Lipase 35 U/L (73-393); Potassium 4.7 mmol/L (3.5-5.1); Protein, Total 7.3 g/dL (6.4-8.2); Sodium Level 129 mmol/L (136-145)
[2020-09-19 18:45] LABS: Lactic Acid 1.1 mmol/L (0.4-1.9)
[2020-09-19 18:49] LABS: Bacteria 0 SEEN /hpf (None Seen); Color, Urine Yellow (Yellow); Glucose, Dipstick 1000 mg/dl (Normal); Ketone-Dipstick Negative (Negative); Leukocyte Esterase-Dipstick 100 /ul (Negative); Mucous, Urine 0 SEEN /hpf (<or=2+); Nitrite-Dipstick Negative (Negative); Occult Blood-Urine 25 /ul (Negative); Protein-Dipstick 30 mg/dl (Negative); Red Blood Cells-Urine 0 SEEN /hpf (0-5); Urine Bilirubin Dipstick Negative (Negative); Urine Clarity Clear (Clear); Urine Urobilinogen Normal (Normal)
[2020-09-19 19:04] LABS: Squamous Epithelial Cells - UA 0-5 SEEN /hpf (5-10); White Blood Cells 5-10 SEEN /hpf (0-5)
--- NOTE | 2020-09-19 19:50 | HP.PCM_ITS ---
Problem List (1) Delayed wound healing Status: Chronic (2) Other specified peripheral vascular diseases Status: Chronic (3) Pressure ulcer, heel, right, unstageable Status: Inactive (4) Diabetic infection of left foot Status: Acute (5) Abscess of left foot Status: Inactive (6) Coronary artery disease Status: Chronic (7) Hypertension Status: Chronic (8) Stroke Status: Chronic (9) Constipation due to opioid therapy Status: Chronic (10) Chronic neuropathic pain Status: Chronic (11) Debility Status: Chronic (12) Diabetes mellitus type 2 in obese Status: Chronic (13) Depression Status: Chronic (14) Allergic rhinitis Status: Chronic (15) Gout Status: Chronic (16) Muscle spasm Status: Chronic (17) Insomnia Status: Chronic (18) Obesity Status: Chronic Qualifiers: Obesity type: due to excess calories Obesity classification: adult class 1 (BMI 30 - 34.9) Body mass index: BMI 31.0-31.9 (19) Vitamin D deficiency Status: Chronic (20) Peripheral arterial occlusive disease Status: Chronic (21) Charcot's joint of left foot Status: Chronic (22) Type 2 diabetes mellitus with diabetic polyneuropathy Status: Chronic Qualifiers: Diabetes mellitus oysterman insulin use: with oysterman use Qualified Code(s): E11.42 - Type 2 diabetes mellitus with diabetic polyneuropathy; Z79.4 - supervisor intermediates (current) use of insulin (23) 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 Comment: Recurrent (24) Ulcer of abdomen wall with fat layer exposed Status: Chronic (25) History of CVA (cerebrovascular accident) Status: Chronic (26) Stented coronary artery Status: Chronic Comment: PTCA and YASIR to proximal and distal CX per Dr. Hatfield @ [facility]:(Promus Premier 4.0 X 12 mm L2 stent from distal left main into proximal LCX; Promus Premier RX 2.25 X 12 mm L1 stent in distal LCX) 12/03/2018:Triple vessel CAD of the LAD, LCX, RCA Successful PTCA/YASIR mid LCX with a 2.5 x 20 Promus Synergy stent; 85%-->0-%, no dissection. 12/24/18:FFR of RCA=0.97, negative, left for medical managemen (27) History of coronary artery bypass graft Status: Chronic Comment: CABG X 3 vessels [facility]:DANIEL to LAD, reverse SVG to dx and to 2nd OM per Dr. Borjas @ [facility] 09/09/2014 (28) Atherosclerotic heart disease of ute coronary artery without angina pectoris Status: Chronic Qualifiers: [place] vs. transplanted heart: ute heart Qualified Code(s): I25.10 - Atherosclerotic heart disease of ute coronary artery without angina pectoris Comment: CABG X 3 vessels [facility]: DANIEL to LAD, reverse SVG to dx and to 2nd OM per Dr. Borjas @ [facility] 09/09/2014; PTCA/YASIR to Left main, LAD, and OM1 per Dr. Hatfield 12/21/2014; (29) Carotid artery disease Status: Chronic Qualifiers: Laterality: bilateral (30) Peripheral vascular disease Status: Chronic (31) Hyperlipidemia Status: Chronic Qualifiers: (32) Hypothyroidism Status: Chronic Qualifiers: (33) Iron deficiency anemia Status: Chronic Qualifiers: (34) GERD (gastroesophageal reflux disease) Status: Chronic History of Present Illness Date of Admission: 09/19/20 Chief Complaint: worsening left foot wound The patient is a 75 year old F with a significant history of CAD status post CABG and stent who was sent from her marketing services vice president office because of worsening left foot wound that marketing services vice president thought patient may need IV antibiotics. Patient complains of pain in her left foot. She described the pain as persistent and excruciating with intermittent increase in her baseline pain. She described the pain as stabbing. The pain radiates to her ankle. Muscle relaxant and morphine helps improve the pain. The pain worsens with movement. Associated for symptom is chills without fever. Also she reports malaise; diaphoresis; nausea and dry heaving. He report of chest soreness that she attributes to dry heaving. Of note patient was admitted to the transitional care unit of [facility] on 08/24/2020 and discharged on 09/09/2020. She was admitted for diabetic infection of left foot; constipation due to opioid therapy; chronic neuropathic pain and debility. Past Medical History Past Medical History (Chronic Problems): Chronic Problems (Last Reviewed 09/19/20 @ 20:[address] Abdulaziz Gillette MD) Delayed wound healing (Chronic) Other specified peripheral vascular diseases (Chronic) Coronary artery disease (Chronic) Hypertension (Chronic) Stroke (Chronic) Constipation due to opioid therapy (Chronic) Chronic neuropathic pain (Chronic) Debility (Chronic) Diabetes mellitus type 2 in obese (Chronic) Depression (Chronic) Allergic rhinitis (Chronic) Gout (Chronic) Muscle spasm (Chronic) Insomnia (Chronic) Obesity (Chronic) Vitamin D deficiency (Chronic) Peripheral arterial occlusive disease (Chronic) Charcot's joint of left foot (Chronic) Type 2 diabetes mellitus with diabetic polyneuropathy (Chronic) Ulcer of left foot with fat layer exposed (Chronic) Recurrent Ulcer of abdomen wall with fat layer exposed (Chronic) History of CVA (cerebrovascular accident) (Chronic) Stented coronary artery (Chronic 12/03/18) PTCA and YASIR to proximal and distal CX per Dr. Hatfield @ [facility]:(Promus Premier 4.0 X 12 mm L2 stent from distal left main into proximal LCX; Promus Premier RX 2.25 X 12 mm L1 stent in distal LCX) 12/03/2018:Triple vessel CAD of the LAD, LCX, RCA Successful PTCA/YASIR mid LCX with a 2.5 x 20 Promus Synergy stent; 85%-->0-%, no dissection. 12/24/18:FFR of RCA=0.97, negative, left for medical managemen History of coronary artery bypass graft (Chronic) CABG X 3 vessels [facility]:DANIEL to LAD, reverse SVG to dx and to 2nd OM per Dr. Borjas @ [facility] 09/09/2014 Atherosclerotic heart disease of ute coronary artery without angina pectoris (Chronic) CABG X 3 vessels [facility]: DANIEL to LAD, reverse SVG to dx and to 2nd OM per Dr. Borjas @ [facility] 09/09/2014; PTCA/YASIR to Left main, LAD, and OM1 per Dr. Hatfield 12/21/2014; Carotid artery disease (Chronic) Peripheral vascular disease (Chronic) Hyperlipidemia (Chronic) Hypothyroidism (Chronic) Iron deficiency anemia (Chronic) GERD (gastroesophageal reflux disease) (Chronic) Medical History: Medical History (Last Reviewed 09/19/20 @ 20:[address] Abdulaziz Gillette MD) Obesity (Chronic) E66.9 Vitamin D deficiency (Chronic) E55.9 Peripheral arterial occlusive disease (Chronic) I77.9 Charcot's joint of left foot (Chronic) M14.672 Type 2 diabetes mellitus with diabetic polyneuropathy (Chronic) E11.42 Ulcer of left foot with fat layer exposed (Chronic) L97.522 Recurrent Ulcer of abdomen wall with fat layer exposed (Chronic) L98.492 History of CVA (cerebrovascular accident) (Chronic) Z86.73 Atherosclerotic heart disease of ute coronary artery without angina pectoris (Chronic) I25.10 CABG X 3 vessels [facility]: DANIEL to LAD, reverse SVG to dx and to 2nd OM per Dr. Borjas @ [facility] 09/09/2014; PTCA/YASIR to Left main, LAD, and OM1 per Dr. Hatfield 12/21/2014; Carotid artery disease (Chronic) I77.9 Peripheral vascular disease (Chronic) I73.9 Hyperlipidemia (Chronic) E78.5 Hypothyroidism (Chronic) E03.9 Iron deficiency anemia (Chronic) D50.9 GERD (gastroesophageal reflux disease) (Chronic) K21.9 Carpal tunnel syndrome G56.00 Essential hypertension I10 Gout M10.9 History of blood clots Z86.718 History of blood transfusion Z92.89 IBS (irritable bowel syndrome) K58.9 Neuropathy G62.9 Osteoporosis M81.0 Allergies doxycycline Allergy (Severe, Verified 08/17/20 15:19) all over body hives and itching atorvastatin calcium [From Lipitor] Allergy (Verified 08/17/20 15:19) Unknown bupropion HCl [From Wellbutrin] Allergy (Verified 08/17/20 15:19) Unknown mannitol [From Reclast] Allergy (Verified 08/17/20 15:19) joint pain, unable to breathe, unable to walk propoxyphene napsylate [From Darvocet-N 100] Allergy (Verified 08/17/20 15:19) Unknown Quinolones Allergy (Verified 08/17/20 15:19) Unknown Tetanus Vaccines and Toxoid [Tetanus Vaccines & Toxoid] Allergy (Verified 08/17/20 15:19) Chest tightness tizanidine Allergy (Verified 08/17/20 15:19) Unknown zoledronic acid [From Reclast] Allergy (Verified 08/17/20 15:19) joint pain,unable to breathe, unaable to walk JOINT PAIN,UNABLE TO BREATHE,UNABLE TO WALK pravastatin Adverse Reaction (Severe, Verified 08/17/20 15:19) Myalgias gemfibrozil Adverse Reaction (Intermediate, Verified 08/17/20 15:19) Unknown NSAIDS (Non-Steroidal Anti-Inflamma Adverse Reaction (Verified 08/17/20 15:19) Other Home Medications: Ambulatory Orders Medication Instructions Recorded Pravastatin Sodium 40 mg PO QHS 03/10/17 amlodipine 5 mg tablet 5 mg PO DAILY tab 05/05/18 Esomeprazole Magnesium 20 mg PO DAILY 09/21/19 Allopurinol 100 mg PO DAILY 03/17/20 Calcium Citrate 200 mg PO BID #0 03/17/20 aspirin 81 mg tablet,delayed 81 mg PO DAILY 04/05/20 release cbd 1 dose PO 4X/DAY PRN 04/05/20 [id number] 1 cap PO BID cap 04/05/20 24,000-76,000-120,000 unit capsule,delayed rel Carvedilol 25 mg PO BID 08/17/20 Isosorbide Mononitrate [Isosorbide 60 mg PO DAILY 08/17/20 Mononitrate ER] Isosorbide Mononitrate [Isosorbide 120 mg PO DAILY 08/17/20 Mononitrate ER] Levothyroxine Sodium 75 mcg PO QHS 08/17/20 Linaclotide [Linzess] 72 mcg PO DAILY 08/17/20 Melatonin 6 mg PO QHS 08/17/20 Metoclopramide HCl 10 mg PO Q8H PRN 08/17/20 Multivitamin/Iron/Folic Acid [Cvs 0.5 tablet PO BID 08/17/20 Spectravite Ultra Women Tb] Trazodone HCl 100 mg PO QHS PRN 08/17/20 Venlafaxine HCl 100 mg PO BID 08/17/20 Wheat Dextrin [Benefiber] 15 ml PO DAILY 08/17/20 Insulin Glargine [Lantus SoloStar 30 units SC BID 08/22/20 Pen] Insulin Lispro [Humalog KwikPen] 8 unit SC BID 08/22/20 Acetaminophen [Tylenol] 1,000 mg PO Q8H PRN PRN #0 tablet 09/09/20 Tizanidine HCl 4 mg PO Q8H PRN PRN #20 tablet 09/09/20 clopidogrel 75 mg tablet 75 mg PO DAILY #90 tablet 09/16/20 Celecoxib [Celebrex] 200 mg PO DAILY 04/26/21 Blue (unflavored) [Blue Packet] 1 packet PO BIDCM 09/19/20 Morphine Sulfate 3 ml PO Q6H PRN PRN 09/19/20 Nitroglycerin [Nitrolingual Evans 0.4 mg SL TID PRN PRN 09/19/20 ([facility])] Polyethylene Glycol 3350 [Miralax] 17 gm PO DAILY 09/19/20 Senna/Docusate Sodium [Senokot-S] 1 tablet PO BID 09/19/20 Surgical History: Surgical History (Last Reviewed 09/19/20 @ 20:[address] Abdulaziz Gillette MD) Stented coronary artery (Chronic) Onset Date: 12/03/18 Z95.5 PTCA and YASIR to proximal and distal CX per Dr. Hatfield @ [facility]:(Promus Premier 4.0 X 12 mm L2 stent from distal left main into proximal LCX; Promus Premier RX 2.25 X 12 mm L1 stent in distal LCX) 12/03/2018:Triple vessel CAD of the LAD, LCX, RCA Successful PTCA/YASIR mid LCX with a 2.5 x 20 Promus Synergy stent; 85%-->0-%, no dissection. 12/24/18:FFR of RCA=0.97, negative, left for medical managemen History of coronary artery bypass graft (Chronic) Z95.1 CABG X 3 vessels [facility]:DANIEL to LAD, reverse SVG to dx and to 2nd OM per Dr. Borjas @ [facility] 09/09/2014 History of gastric bypass Z98.84 History of ventral hernia repair Z98.890, Z87.19 History of excision of lesion Z98.890, Z87.2 Surgical preparation supraumbilical area in previous scar with excision nonhealing ulcer and 16 cm complex secondary wound closure - 03/07/20 History of gastric bypass (Inactive) Z98.84 History of left heart catheterization (Inactive) Z98.890 CABG X 3 vessels [facility]:DANIEL to LAD, reverse SVG to dx and to 2nd OM per Dr. Borjas @ [facility] 09/09/2014; PTCA andDES to proximal and distal CX per Dr. Hatfield 12/21/2014; Hx of ventral hernia repair (Inactive) Z98.890, Z87.19 with mesh 20 years ago Surgical History: angioplasty - Stent., appendectomy, coronary bypass surgery, gastric bypass, tonsillectomy, - - , Carpal tunnel release, cardiac catheterization, carotid endarterectomy, right foot transmetatarsal amputation, exostectomy left foot Psychiatric History: Anxiety, Depression SUMAC TANNER History: No pertinent SUMAC TANNER history Smoking Status: Never smoker - *Family History Paternal Family History: Family History (Last Reviewed 09/19/20 @ 20:[address] Abdulaziz Gillette MD) Mother Cancer CVA (cerebral vascular accident) CAD (coronary artery disease) Father CAD (coronary artery disease) History of coronary artery bypass graft Sister CAD (coronary artery disease) Multiple sclerosis Other Anxiety Bleeding disorder Depression Diabetes Heart disease High cholesterol Hypertension History Items: No pertinent history Maternal Family History: Family History (Last Reviewed 09/19/20 @ 20:[address] Abdulaziz Gillette MD) Mother Cancer CVA (cerebral vascular accident) CAD (coronary artery disease) Father CAD (coronary artery disease) History of coronary artery bypass graft Sister CAD (coronary artery disease) Multiple sclerosis Other Anxiety Bleeding disorder Depression Diabetes Heart disease High cholesterol Hypertension History Items: No pertinent history Review of Systems Constitutional: Reports: Chills, Malaise. Denies: Fever, Weight Change HEENT: Denies: Head Aches, Sinus Congestion, Sinus Drainage Cardiovascular: Denies: Chest Pain, Palpitations Respiratory: Denies: Cough, Shortness of breath at rest, Sputum production Gastrointestinal: Reports: Nausea. Denies: Abdominal Pain, Vomiting Genitourinary: Denies: Dysuria Musculoskeletal: Reports: Foot Pain. Denies: Joint Pain, Joint Tenderness Skin: Denies: Rash, Wounds Neurological: Denies: Numbness, Tingling, Focal weakness Psychiatric: Denies: Anxiety, Depression, Homicidal Ideations, Suicidal Ideations Hematologic/ Lymphatic: Denies: Easy Bruising, Easy Bleeding VTE Information - Inpt Only VTE Present on Admission: No VTE Mechan Device Prophylaxis: SCD's VTE Pharm Prophylaxis ordered?: No - Physical Exam Vitals/I&O's: Vital Signs Temp Pulse Resp BP Pulse Ox 98.5 F 87 18 144/54 H 100 09/19/20 18:07 09/19/20 18:07 09/19/20 18:07 09/19/20 18:07 09/19/20 18:07 Oxygen Delivery Method Room Air Weight: 77.111 kg Body Mass Index (BMI) 29.2 Finger Stick Blood Glucose 193 Intake and Output for Last 24 Hours 09/17/20 09/18/20 09/19/20 23:59 23:59 23:59 Intake Total 500 / 500 Balance 500 / 500 General: Alert, Oriented x3, Cooperative HEENT: Atraumatic, PERRLA, EOMI, Normocephalic Neck: Supple, No JVD, Negative Carotid Bruits Lungs: Clear to auscultation, Normal air movement Cardiovascular: Regular rate, Normal S1, Normal S2, No murmurs Abdomen: Bowel Sounds Present, Soft, Non Tender Extremities: No edema, Capillary Refill Less than 3 Seconds Skin: Ulcer/ Wound - Plantar side of left foot with bolden pus, - Musculoskeletal: No Tenderness to Palpation of Joints or Extremities Neurological: Cranial nerves II-XII grossly intact Psych/Mental Status: Normal Affect, Appropriate Laboratory Results 09/19/20 17:45: WBC 9.8, RBC 3.68 L, Hgb 11.2 L, Hct 33.8 L, MCV 91.8, MCH 30.4, MCHC 33.1, RDW Std Deviation 47.9 H, RDW Coeff of Marco 14.0, Plt Count 178, MPV 9.8, Immature Gran % (Auto) 0.900, Neut % (Auto) 76.3 H, Lymph % (Auto) 13.4 L, [place] % (Auto) 9.1, Eos % (Auto) 0.2, Baso % (Auto) 0.1, Absolute Neuts (auto) 7.5, Absolute Lymphs (auto) 1.31, Nucleated RBC % 0, ESR 44 H 09/19/20 17:45: Sodium 129 L, Potassium 4.7, Chloride 101, Carbon Dioxide 20.0 L , Anion Gap 8, BUN 41 H, Creatinine 1.43 H, Estim Creat Clear Calc 30.26, Est GFR (MDRD) Af Amer 46 L, Est GFR (MDRD) Non-Af 38 L, BUN/Creatinine Ratio 28.7 H , Glucose 383 H, Calcium 8.0 L, Total Bilirubin 0.30, AST 16, ALT 28, Alkaline Phosphatase 91, Troponin I 0.182 H, C-React Prot Ext Range 206.00 H, Total Protein 7.3, Albumin 2.4 L, Globulin 4.9 H, Albumin/Globulin Ratio 0.5 L, Lipase 35 L 09/19/20 17:45: Lactic Acid 1.1 09/19/20 17:45: Acetone Level NEGATIVE 09/19/20 18:30: Urine Color Yellow, Urine Clarity Clear, Urine pH 5.0, Ur Specific [place] 1.010, Urine Protein 30 H, Urine Glucose (UA) 1000 H, Urine Ketones Negative, Urine Occult Blood 25 H, Urine Nitrite Negative, Urine Bilirubin Negative, Urine Urobilinogen Normal, Ur Leukocyte Esterase 100 H, Urine RBC 0 SEEN, Urine WBC 5-10 SEEN, Ur Squamous Epith Cells 0-5 SEEN, Urine Bacteria 0 SEEN, Urine Mucus 0 SEEN Current Medications Piperacillin Sod/Tazobactam (Sod 3.375 gm/ Sodium Chloride) 50 mls @ 100 mls/hr IV X1 ONE Stop: 09/19/20 20:08 Vancomycin HCl 1,250 mg/ (Sodium Chloride) 275 mls @ 167 mls/hr IV X1 ONE Stop: 09/19/20 21:38 Assessment/Plan All Active Problems (Last Reviewed 09/19/20 @ 20:[address] Abdulaziz Gillette MD) Diabetic infection of left foot (Acute) Decubitus ulcer of sacral region, stage 2 (Resolved) The patient is a 75 year old F with a significant history of CAD status post CABG and stent who was sent from her marketing services vice president office because of worsening left foot wound that marketing services vice president thought might need need IV antibiotics and with elevated crp and esr. Acute on chronic infection of diabetic foot ulcer. Old records were reviewed. Of note MRI on 08/18/2020 did not show ost eomyelitis. It showed cellulitis of the plantar aspect of folds. Also there was severe possible tarsometatarsal joint arthrosis. Review of emergency department labs showed elevated ESR and CRP. Culture of wound of left foot on 08/19/2020 was remarkable for streptococcus agalactiae and Enterococcus faecalis. Review of sensitivities shows that both antibiotics were sensitive to vancomycin and Zosyn. Will start patient on vancomycin. Infectious disease saw patient in the past. Infectious disease consult. Podiatry consulted. Continue home morphine and home muscle relaxants. Hold home NSAIDs for now. Of note in the past patient followed with vascular surgery. vascular test/leas/ueas on 09/07/20: normal triphasic flow through popliteal and then elevated psv through anterior tibial and biphasic. Peroneal diminished flow and decreased in distal posterior tibial Order to Culture pus from diabetic foot infection Wound care consult MRI of left foot. N.p.o. after midnight until podiatry sees patient. Elevated troponin Review of EKG shows sinus rhythm first degree AV block and a left axis deviation. Likely demand ischemia from type II NE. Trend troponin HISTORY OF CAD S/P CABG AND STENT STABLE Aspirin and Plavix continued for history of CAD with CABG.. Imdur continued Diabetic mellitus with diabetic polyneuropathy and nephropathy Blood glucose is uncontrolled. Of note patient reports episodes of hypoglycemia with previous hospitalization. Home basal insulin continued. Adjust home prandial insulin. Accu-Chek with correction scale insulin ordered. Hypoglycemic regimen ordered. CARLOS on chronic kidney disease stage IIIa CKD Likely from Diabetic nephropathy and hypertensive nephrosclerosis Baseline creatinine of 0.96 Creatinine on admission was 1.43 BUN over creatinine is 28.7. Likely prerenal. IV hydration Trend BMP. Avoid nephrotoxins. Home NSAIDs held. Hypertension Blood pressure is not within goal IMDUR AND COREG continued. Trend blood pressure and adjust blood pressure medications. Hypovolemic hyponatremia On presentation was 129. Likely secondary to poor intake. Normal saline hydration Trend BMP. Obesity: BMI of 30.7kg/m2. complicates care. lifestyle modifications recommended. Hypothyroidism Synthroid continued. DVT Prophylaxis SCD ordered. Inpatient E&M: 87337 Init Hosp L3
[2020-09-19 20:21] VITALS: BP 138/57; PULSE 80; RESP 16; TEMP 36.8; O2SAT 97
--- NOTE | 2020-09-19 20:22 | ED.RN ---
wound cultures obtained from foot wound per hospitalist request. draining open wound with sutures to bottom of foot.
[2020-09-19 20:47] VITALS: BMI 30.7
[2020-09-19 20:48] VITALS: BP 157/69; PULSE 83; RESP 18; TEMP 37.4; O2SAT 100
--- NOTE | 2020-09-19 20:49 | PCM.RX.CS ---
Consult Pharmacy has been consulted to manage selected antiobiotic: Vancomycin Type of Consult: New start Prior Doses of Antibiotics Received/Current Regimen: Medications Vancomycin HCl 1,250 mg/ (Sodium Chloride) 275 mls @ 167 mls/hr IV X1 ONE Stop: 09/19/20 21:38 Last Admin: 09/19/20 20:21 Dose: 167 mls/hr Documented by: Labs: Sodium 129 mmol/L (136-145) L 09/19/20 17:45 Potassium 4.7 mmol/L (3.5-5.1) 09/19/20 17:45 Chloride 101 mmol/L (98-107) 09/19/20 17:45 Carbon Dioxide 20.0 mmol/L (21.0-32.0) L 09/19/20 17:45 Anion Gap 8 (5-15) 09/19/20 17:45 BUN 41 mg/dL (7-18) H 09/19/20 17:45 Creatinine 1.43 mg/dL (0.55-1.02) H 09/19/20 17:45 Est GFR (MDRD) Af Amer 46 mL/min (>60) L 09/19/20 17:45 Est GFR (MDRD) Non-Af 38 mL/min (>60) L 09/19/20 17:45 BUN/Creatinine Ratio 28.7 RATIO (10-20) H 09/19/20 17:45 Glucose 383 mg/dL (74-106) H 09/19/20 17:45 Weight used for dosin kg Estimated Creatinine Clearance: 30 Goal Trough: 10-15 mcg/mL Pharmacy Plan for Drug Dosing: Patient received 1250mg IV x1 in ED. Has been on vanc inpatient here before multiple times in the past. Based on past dosing, recommend vanc 750mg IV q24h with trough prior to 3rd dose per policy. Pharmacy Service will continue to monitor and adjust dosing as required. Follow-Up Labs: Trough Vancomycin - 09/21 @ 1930
[2020-09-19 20:59] VITALS: PULSE 82
[2020-09-19] MEDS: morphine (oral solution) 10MG/0.5ML Syringe 6 MG PO (21:24)
--- NOTE | 2020-09-19 21:32 | PCM.CONS.GEN ---
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 She relates copious amounts of drainage, new onset of redness, and discomfort three days ago. She denies foot odor. She denies trauma. She also reports nausea and chills. She denies measurable fever, diarrhea, vomiting or calf pain. She relates she checked her glucose level prior to coming to the office and it was almost 500 mg/dL. It is noted she had a recent hospitalization and was discharged on for a foot infection which required operation room incision and drainage and subsequent transitional care unit rehabilitation. She was seen by palliative care during this visit also. She was also seen by vascular surgery in which an angiogram with potential intervention was scheduled for tomorrow 09-20-[address] Pang. Past Medical History Past Medical History (Chronic Problems): Chronic Problems (Last Reviewed 09/19/20 @ 20:[address] Abdulaziz Gillette MD) 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 (Chronic) Delayed wound healing (Chronic) Other specified peripheral vascular diseases (Chronic) Coronary artery disease (Chronic) Hypertension (Chronic) Stroke (Chronic) Constipation due to opioid therapy (Chronic) Chronic neuropathic pain (Chronic) Debility (Chronic) Diabetes mellitus type 2 in obese (Chronic) Depression (Chronic) Allergic rhinitis (Chronic) Gout (Chronic) Muscle spasm (Chronic) Insomnia (Chronic) Obesity (Chronic) Vitamin D deficiency (Chronic) Peripheral arterial occlusive disease (Chronic) Charcot's joint of left foot (Chronic) Type 2 diabetes mellitus with diabetic polyneuropathy (Chronic) Ulcer of left foot with fat layer exposed (Chronic) Recurrent Ulcer of abdomen wall with fat layer exposed (Chronic) History of CVA (cerebrovascular accident) (Chronic) Stented coronary artery (Chronic 12/03/18) PTCA and YASIR to proximal and distal CX per Dr. Hatfield @ [facility]:(Promus Premier 4.0 X 12 mm L2 stent from distal left main into proximal LCX; Promus Premier RX 2.25 X 12 mm L1 stent in distal LCX) 12/03/2018:Triple vessel CAD of the LAD, LCX, RCA Successful PTCA/YASIR mid LCX with a 2.5 x 20 Promus Synergy stent; 85%-->0-%, no dissection. 12/24/18:FFR of RCA=0.97, negative, left for medical managemen History of coronary artery bypass graft (Chronic) CABG X 3 vessels [facility]:DANIEL to LAD, reverse SVG to dx and to 2nd OM per Dr. Borjas @ [facility] 09/09/2014 Atherosclerotic heart disease of [place] coronary artery without angina pectoris (Chronic) CABG X 3 vessels [facility]: DANIEL to LAD, reverse SVG to dx and to 2nd OM per Dr. Borjas @ [facility] 09/09/2014; PTCA/YASIR to Left main, LAD, and OM1 per Dr. Hatfield 12/21/2014; Carotid artery disease (Chronic) Peripheral vascular disease (Chronic) Hyperlipidemia (Chronic) Hypothyroidism (Chronic) Iron deficiency anemia (Chronic) GERD (gastroesophageal reflux disease) (Chronic) Medical History: Medical History (Last Reviewed 09/19/20 @ 20:[address] Abdulaziz Gillette MD) Obesity (Chronic) E66.9 Vitamin D deficiency (Chronic) E55.9 Peripheral arterial occlusive disease (Chronic) I77.9 Charcot's joint of left foot (Chronic) M14.672 Type 2 diabetes mellitus with diabetic polyneuropathy (Chronic) E11.42 Ulcer of left foot with fat layer exposed (Chronic) L97.522 Recurrent Ulcer of abdomen wall with fat layer exposed (Chronic) L98.492 History of CVA (cerebrovascular accident) (Chronic) Z86.73 Atherosclerotic heart disease of [place] coronary artery without angina pectoris (Chronic) I25.10 CABG X 3 vessels [facility]: DANIEL to LAD, reverse SVG to dx and to 2nd OM per Dr. Borjas @ [facility] 09/09/2014; PTCA/YASIR to Left main, LAD, and OM1 per Dr. Hatfield 12/21/2014; Carotid artery disease (Chronic) I77.9 Peripheral vascular disease (Chronic) I73.9 Hyperlipidemia (Chronic) E78.5 Hypothyroidism (Chronic) E03.9 Iron deficiency anemia (Chronic) D50.9 GERD (gastroesophageal reflux disease) (Chronic) K21.9 Carpal tunnel syndrome G56.00 Essential hypertension I10 Gout M10.9 History of blood clots Z86.718 History of blood transfusion Z92.89 IBS (irritable bowel syndrome) K58.9 Neuropathy G62.9 Osteoporosis M81.0 Allergies doxycycline Allergy (Severe, Verified 08/17/20 15:19) all over body hives and itching atorvastatin calcium [From Lipitor] Allergy (Verified 08/17/20 15:19) Unknown bupropion HCl [From Wellbutrin] Allergy (Verified 08/17/20 15:19) Unknown mannitol [From Reclast] Allergy (Verified 08/17/20 15:19) joint pain, unable to breathe, unable to walk propoxyphene napsylate [From Darvocet-N 100] Allergy (Verified 08/17/20 15:19) Unknown Quinolones Allergy (Verified 08/17/20 15:19) Unknown Tetanus Vaccines and Toxoid [Tetanus Vaccines & Toxoid] Allergy (Verified 08/17/20 15:19) Chest tightness tizanidine Allergy (Verified 08/17/20 15:19) Unknown zoledronic acid [From Reclast] Allergy (Verified 08/17/20 15:19) joint pain,unable to breathe, unaable to walk JOINT PAIN,UNABLE TO BREATHE,UNABLE TO WALK pravastatin Adverse Reaction (Severe, Verified 08/17/20 15:19) Myalgias gemfibrozil Adverse Reaction (Intermediate, Verified 08/17/20 15:19) Unknown NSAIDS (Non-Steroidal Anti-Inflamma Adverse Reaction (Verified 08/17/20 15:19) Other Home Medications: Ambulatory Orders Medication Instructions Recorded Pravastatin Sodium 40 mg PO QHS 03/10/17 amlodipine 5 mg tablet 5 mg PO DAILY tab 05/05/18 Esomeprazole Magnesium 20 mg PO DAILY 09/21/19 Allopurinol 100 mg PO DAILY 03/17/20 Calcium Citrate 200 mg PO BID #0 03/17/20 aspirin 81 mg tablet,delayed 81 mg PO DAILY 04/05/20 release cbd 1 dose PO 4X/DAY PRN 04/05/20 [id number] 1 cap PO BID cap 04/05/20 24,000-76,000-120,000 unit capsule,delayed rel Carvedilol 25 mg PO BID 08/17/20 Isosorbide Mononitrate [Isosorbide 60 mg PO DAILY 08/17/20 Mononitrate ER] Isosorbide Mononitrate [Isosorbide 120 mg PO DAILY 08/17/20 Mononitrate ER] Levothyroxine Sodium 75 mcg PO QHS 08/17/20 Linaclotide [Linzess] 72 mcg PO DAILY 08/17/20 Melatonin 6 mg PO QHS 08/17/20 Metoclopramide HCl 10 mg PO Q8H PRN 08/17/20 Multivitamin/Iron/Folic Acid [Cvs 0.5 tablet PO BID 08/17/20 Spectravite Ultra Women Tb] Trazodone HCl 100 mg PO QHS PRN 08/17/20 Venlafaxine HCl 100 mg PO BID 08/17/20 Wheat Dextrin [Benefiber] 15 ml PO DAILY 08/17/20 Insulin Glargine [Lantus SoloStar 30 units SC BID 08/22/20 Pen] Insulin Lispro [Humalog KwikPen] 8 unit SC BID 08/22/20 Acetaminophen [Tylenol] 1,000 mg PO Q8H PRN PRN #0 tablet 09/09/20 Tizanidine HCl 4 mg PO Q8H PRN PRN #20 tablet 09/09/20 clopidogrel 75 mg tablet 75 mg PO DAILY #90 tablet 09/16/20 Celecoxib [Celebrex] 200 mg PO DAILY 09/19/20 Blue (unflavored) [Blue Packet] 1 packet PO BIDCM 09/19/20 Morphine Sulfate 3 ml PO Q6H PRN PRN 09/19/20 Nitroglycerin [Nitrolingual [place] 0.4 mg SL TID PRN PRN 09/19/20 ([facility])] Polyethylene Glycol 3350 [Miralax] 17 gm PO DAILY 09/19/20 Senna/Docusate Sodium [Senokot-S] 1 tablet PO BID 09/19/20 Surgical History: Surgical History (Last Reviewed 09/19/20 @ 20:[address] Abdulaziz Gillette MD) Stented coronary artery (Chronic) Onset Date: 12/03/18 Z95.5 PTCA and YASIR to proximal and distal CX per Dr. Hatfield @ [facility]:(Promus Premier 4.0 X 12 mm L2 stent from distal left main into proximal LCX; Promus Premier RX 2.25 X 12 mm L1 stent in distal LCX) 12/03/2018:Triple vessel CAD of the LAD, LCX, RCA Successful PTCA/YASIR mid LCX with a 2.5 x 20 Promus Synergy stent; 85%-->0-%, no dissection. 12/24/18:FFR of RCA=0.97, negative, left for medical managemen History of coronary artery bypass graft (Chronic) Z95.1 CABG X 3 vessels [facility]:DANIEL to LAD, reverse SVG to dx and to 2nd OM per Dr. Borjas @ [facility] 09/09/2014 History of gastric bypass Z98.84 History of ventral hernia repair Z98.890, Z87.19 History of excision of lesion Z98.890, Z87.2 Surgical preparation supraumbilical area in previous scar with excision nonhealing ulcer and 16 cm complex secondary wound closure - 03/07/20 History of gastric bypass (Inactive) Z98.84 History of left heart catheterization (Inactive) Z98.890 CABG X 3 vessels [facility]:DANIEL to LAD, reverse SVG to dx and to 2nd OM per Dr. Borjas @ [facility] 09/09/2014; PTCA andDES to proximal and distal CX per Dr. 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 Abdulaziz Gillette MD) Mother Cancer CVA (cerebral vascular accident) CAD (coronary artery disease) Father CAD (coronary artery disease) History of coronary artery bypass graft Sister CAD (coronary artery disease) Multiple sclerosis Other Anxiety Bleeding disorder Depression Diabetes Heart disease High cholesterol Hypertension History Items: No pertinent history Maternal Family History: Family History (Last Reviewed 09/19/20 @ 20:[address] Abdulaziz Gillette MD) Mother Cancer CVA (cerebral vascular accident) CAD (coronary artery disease) Father CAD (coronary artery disease) History of coronary artery bypass graft Sister CAD (coronary artery disease) Multiple sclerosis Other Anxiety Bleeding disorder Depression Diabetes Heart disease High cholesterol Hypertension History Items: No pertinent history Review of Systems Constitutional: Reports: Malaise, Weakness, Fatigue. Denies: Chills, Fever Cardiovascular: Reports: Edema. Denies: Chest Pain, Claudication Respiratory: Denies: Cough, Shortness of Breath Gastrointestinal: Reports: Nausea. Denies: Diarrhea, Vomiting Musculoskeletal: Reports: Foot Pain. Denies: Leg Pain Skin: Reports: Skin Changes, Wounds Neurological: Reports: Balance problems, Incoordination, Numbness, Tingling Psychiatric: Reports: Depression Patient Problems: Active and Suspected Problems (Last Reviewed 09/19/20 @ 20:[address] Abdulaziz Gillette MD) Cellulitis of left foot (Acute) Diabetic infection of left foot (Acute) - Physical Exam Vitals/I&O's: Vital Signs Temp Pulse Resp BP Pulse Ox 99.3 F H 83 18 157/69 H 100 09/19/20 20:48 09/19/20 20:48 09/19/20 20:48 09/19/20 20:48 09/19/20 20:48 Oxygen Delivery Method Room Air Weight: 81.2 kg Body Mass Index (BMI) 29.2 Finger Stick Blood Glucose 193 Intake and Output for Last 24 Hours 09/17/20 09/18/20 09/19/20 23:59 23:59 23:59 Intake Total 550 / 550 Balance 550 / 550 General: Oriented x3, Cooperative, Confused, Lethargic HEENT: Atraumatic Extremities: No cyanosis, Capillary Refill Less than 3 Seconds, No Calf Tenderness - Negative Claudio and Elizondo sign bilateral lower extremity, Diminished Peripheral Pulses, Edema - Left lower extremity, - - Left foot Charcot rocker-bottom foot without new gross laxity or pain with midfoot manipulation. There is pain with ulcer manipulation with increased drainage. No adjacent bogginess or fluctuance. No pain to palpation along the tendinous structures at the ankle level or leg. Skin: Incision - Intact distal aspect of her incision from her surgery during last hospital admission with increased proximal aspect skin discontinuity with deep probing tracking to the medial midfoot now with serosanguineous drainage and fibrous base. No purulence or alejandro odor noted., - - Erythema extends to the plantar midfoot in a diffuse manner and also the medial midfoot/not to the ankle level Musculoskeletal: - - No crepitus with manipulation of ankle or subtalar joint either Lymphatic: - - No popliteal lymphadenopathy left Neurological: - - Lack of normal epicritic sensation light touch is consistent with neuropathic status. Psych/Mental Status: Normal Affect, Appropriate Laboratory Results 09/19/20 17:45: WBC 9.8, RBC 3.68 L, Hgb 11.2 L, Hct 33.8 L, MCV 91.8, MCH 30.4, MCHC 33.1, RDW Std Deviation 47.9 H, RDW Coeff of Marco 14.0, Plt Count 178, MPV 9.8, Immature Gran % (Auto) 0.900, Neut % (Auto) 76.3 H, Lymph % (Auto) 13.4 L, [place] % (Auto) 9.1, Eos % (Auto) 0.2, Baso % (Auto) 0.1, Absolute Neuts (auto) 7.5, Absolute Lymphs (auto) 1.31, Nucleated RBC % 0, ESR 44 H 09/19/20 17:45: Sodium 129 L, Potassium 4.7, Chloride 101, Carbon Dioxide 20.0 L, Anion Gap 8, BUN 41 H, Creatinine 1.43 H, Estim Creat Clear Calc 30.26, Est GFR (MDRD) Af Amer 46 L, Est GFR (MDRD) Non-Af 38 L, BUN/Creatinine Ratio 28.7 H, Glucose 383 H, Calcium 8.0 L, Total Bilirubin 0.30, AST 16, ALT 28, Alkaline Phosphatase 91, Troponin I 0.182 H, C-React Prot Ext Range 206.00 H, Total Protein 7.3, Albumin 2.4 L, Globulin 4.9 H, Albumin/Globulin Ratio 0.5 L, Lipase 35 L 09/19/20 17:45: Lactic Acid 1.1 09/19/20 17:45: Acetone Level NEGATIVE 09/19/20 18:30: Urine Color Yellow, Urine Clarity Clear, Urine pH 5.0, Ur Specific [place] 1.010, Urine Protein 30 H, Urine Glucose (UA) 1000 H, Urine Ketones Negative, Urine Occult Blood 25 H, Urine Nitrite Negative, Urine Bilirubin Negative, Urine Urobilinogen Normal, Ur Leukocyte Esterase 100 H, Urine RBC 0 SEEN, Urine WBC 5-10 SEEN, Ur Squamous Epith Cells 0-5 SEEN, Urine Bacteria 0 SEEN, Urine Mucus 0 SEEN 09/19/20 21:25: Troponin I Pending Current Medications Acetaminophen (Acetaminophen 500 Mg Tablet) 1,000 mg PO Q8H PRN PRN PRN Reason: Pain Score 1-3 Allopurinol (Allopurinol 100 Mg Tablet) 100 mg PO DAILY [facility] Amlodipine Besylate (Amlodipine 5 Mg Tablet) 5 mg PO DAILY [facility] Aspirin (Aspirin E.C. 81 Mg Tablet) 81 mg PO DAILY [facility] Calamine/Phenol (Menthol/Lanolin/Calamine/Znox 113 Gm Tube) 1 applic TOPICAL TID [facility]; Protocol Calcium Carbonate (Calcium (Elemental) 500 Mg Tablet) 500 mg PO BID [facility] Carvedilol (Carvedilol 25 Mg Tablet) 25 mg PO BID [facility] Clopidogrel Bisulfate (Clopidogrel Bisulfate 75 Mg Tablet) 75 mg PO DAILY [facility] Dextrose (Dextrose 50%-Water 25 Gm/50 Ml Disp.Syrin) 0 gm IV X1 PRN; Protocol PRN Reason: Hypoglycemia Glucagon (Glucagon 1 Mg/Ml Syringe) 1 mg IM .X1 PRN PRN Reason: Hypoglycemia Vancomycin HCl 1,250 mg/ (Sodium Chloride) 275 mls @ 167 mls/hr IV X1 ONE Stop: 09/19/20 21:38 Last Admin: 09/19/20 20:21 Dose: 167 mls/hr Documented by: Sodium Chloride () 1,000 mls @ 75 mls/hr IV .[id number] [facility] Piperacillin Sod/Tazobactam (Sod 3.375 gm/ Sodium Chloride) 50 mls @ 12.5 mls/hr IV Q8 [facility] Vancomycin IV Pharmacy to Dose (1 each/ Sodium Chloride) 500 mls @ 250 mls/hr IV X1 PRN; Protocol PRN Reason: Rx to Dose Vancomycin HCl 750 mg/ Sodium (Chloride) 265 mls @ 250 mls/hr IV Q24H [facility] Insulin Glargine (Insulin Glargine 100 Units/Ml Pen) 30 units SC BID [facility] Insulin Human Lispro (Insulin Lispro 100 Unit/Ml Insuln.Pen) 0 unit SC Q6 [facility]; Protocol Insulin Human Lispro (Insulin Lispro 100 Unit/Ml Insuln.Pen) 6 unit SC TID [facility] Isosorbide Mononitrate (Isosorbide Mononitrate 60 Mg Tablet) 60 mg PO DAILY [facility] Isosorbide Mononitrate (Isosorbide Mononitrate 60 Mg Tablet) 120 mg PO QHS [facility] L-Arginine/L-Glutamine/Calcium HMB (Blue (Unflavored) Packet) 1 packet PO BIDCM [facility] Levothyroxine Sodium (Levothyroxine 75 Mcg Tablet) 75 mcg PO QHS [facility] Melatonin (Melatonin 3 Mg Tablet) 6 mg PO QHS [facility] Morphine Sulfate (Morphine (Oral Solution) 10mg/0.5ml Syringe) 6 mg PO Q6H PRN PRN PRN Reason: Pain Score 6-10 Last Admin: 09/19/20 21:24 Dose: 6 mg Documented by: Multivitamins/Minerals (Multivitamins,Ther W-Minerals Tablet) 1 tablet PO BIDCM [facility] Non-Formulary Medication (Linaclotide) 72 mcg PO DAILY [facility] Nutritional Formula (Lactose Free) (Glucerna Shake 120 Ml Liquid) 120 ml PO 4X/DAY [facility] Ondansetron HCl (Ondansetron 4 Mg/2 Ml Vial) 4 mg IV Q8H PRN PRN PRN Reason: NAUSEA/VOMITING Pancrelipase (Creon 24,[address] Capsule) 1 capsule PO BID [facility] Pantoprazole Sodium (Pantoprazole Sodium 20 Mg Tablet) 20 mg PO DAILY [facility] Polyethylene Glycol (Polyethylene Glycol 3350 17 Gm Packet) 17 gm PO DAILY [facility] Pravastatin Sodium (Pravastatin 40 Mg Tablet) 40 mg PO QHS [facility] Senna/Docusate Sodium (Senna/Docusate Sodium 1 Tablet) 1 tablet PO BID [facility] Sodium Chloride (0.9% Saline Lock 10 Ml Syringe) 10 - 40 ml IV UD PRN PRN Reason: SALINE FLUSH Tizanidine HCl (Tizanidine Hcl 2 Mg Tablet) 4 mg PO Q8H PRN PRN PRN Reason: MUSCLE SPASM Trazodone HCl (Trazodone 100 Mg Tablet) 100 mg PO QHS PRN PRN PRN Reason: SLEEP Venlafaxine HCl (Venlafaxine Hcl 100 Mg Tablet) 100 mg PO BID [facility] Assessment/Plan All Active Problems (Last Reviewed 09/19/20 @ 20:[address] Abdulaziz Gillette MD) Cellulitis of left foot (Acute) Diabetic infection of left foot (Acute) Decubitus ulcer of sacral region, stage 2 (Resolved) Left foot cellulitis with infected ulcer Left chronic Charcot midfoot Left midfoot osteomyelitis or deep space infection work-up in process Uncontrolled diabetes with neuropathy Peripheral vascular disease Delayed healing Palliative care candidate Other comorbidities: Coronary artery disease status post CABG, hypertension, chronic kidney disease, obesity I reviewed and discussed her case in clinic this afternoon. It was noted she deviated from baseline behaviors and was hyperglycemic with foot infection. She went for further full evaluation in the ER as advised. She was admitted for hyperglycemia and left foot infection. She has a very low-grade fever at time of admission and her vitals remained stable. White blood cell count 9.8. It is noted she may not mount a full systemic reaction due to her immunocompromise status. Her x-ray was negative for soft tissue emphysema or acute fractures. Her prior Charcot midfoot appears unchanged from prior exams. No acute foreign bodies are noted. ESR elevated to 44 and C-reactive protein over 200. She is admitted for IV antibiotics and was started on broad-spectrum coverage (vancomycin and Zosyn). Infectious disease on consultation is greatly appreciated. Deep wound culture including aerobic, anaerobic, and MRSA PCR was obtained in the clinical setting and these results are pending. Blood cultures were obtained upon arrival to the emergency room. MRI was ordered to assess for deep abscess or osteomyelitis development. It is noted the MRI during her last hospital admission was negative for osteomyelitis last month. She will be n.p.o. until his MRI is reviewed and may require surgical drainage of the foot. She understands she is at high risk for limb loss and continued life-threatening systemic illness due to this condition. Betadine wet-to-dry pack dressing was applied earlier today. She is scheduled for vascular surgery intervention tomorrow with Dr. Pang. I recommend consulting him for continuity of care while she is in the hospital. To maintain strict nonweightbearing status. Medical management per hospitalist is greatly appreciated. I will continue to follow her closely while in house. Please do not hesitate to call if you have any questions. Ivanna Magana DPM, [facility] [phone]
[2020-09-19] MEDS: Menthol/Lanolin/Calamine/Znox 113 GM Tube 1 APPLIC TOPICAL (22:04)
[2020-09-19] MEDS: tiZANidine HCl 2 MG Tablet 4 MG PO (22:15)
[2020-09-19] MEDS: Levothyroxine 75 MCG Tablet PO (22:15)
[2020-09-19 22:16] LABS: Bedside Glucose 342 mg/dL (70-110)
[2020-09-19] MEDS: Pravastatin 40 MG Tablet PO (22:16)
[2020-09-19] MEDS: Creon 24,000 unit DR Capsule 1 CAP PO (22:16)
[2020-09-19] MEDS: MELATONIN 3 MG TABLET 6 MG PO (22:16)
[2020-09-19] MEDS: Carvedilol 25 MG Tablet PO (22:16)
[2020-09-19] MEDS: Isosorbide Mononitrate 60 MG Tablet 120 MG PO (22:16)
[2020-09-19] MEDS: Calcium (Elemental) 500 MG Tablet PO (22:16)
[2020-09-19] MEDS: Senna/Docusate Sodium 1 Tablet PO (22:16)
[2020-09-19] MEDS: Insulin Lispro 100 UNIT/ML INSULN.PEN 6 UNIT SC (22:17)
[2020-09-19] MEDS: Insulin Lispro 100 UNIT/ML INSULN.PEN SC (22:18)
[2020-09-19] MEDS: 0.9% Normal Saline 1,000 ML 75 ML IV (22:29)
[2020-09-19] MEDS: traZODone 100 MG Tablet PO (22:58)
[2020-09-20] VITALS (26 sets, daily range): BP systolic 135–169; BP diastolic 40–113; PULSE 67–108; RESP 14–18; TEMP 36.1–39.4; O2SAT 90–100; BMI 29.9
[2020-09-20] MEDS: morphine (oral solution) 10MG/0.5ML Syringe 6 MG PO ×3 (04:04→20:31)
[2020-09-20] MEDS: Acetaminophen 500 MG Tablet 1000 MG PO ×2 (04:04→20:23)
[2020-09-20 06:21] LABS: Bedside Glucose 164 mg/dL (70-110)
[2020-09-20] MEDS: Menthol/Lanolin/Calamine/Znox 113 GM Tube 1 APPLIC TOPICAL ×2 (06:26→22:06)
[2020-09-20 08:08] LABS: Absolute Neutrophil Count 6.4 X10^3/uL (2.0-7.7); Basophil# 0.02 X10^3/uL; Basophil% 0.2 % (0-1); Eosinophil# 0.06 X10^3/uL; Eosinophils% 0.7 % (0-5); Hematocrit 30.1 % (37-47); Hemoglobin 9.7 g/dL (12.0-15.0); Lymphocyte % 13.8 % (19-41); Mean Corp Hgb Conc 32.2 g/dL (32-36); Mean Corpuscular Hgb 30.1 pg (27.0-32.0); Mean Corpuscular Volume 93.5 fL (81-99); Mean Platelet Vol. 9.6 fl (6.2-12.0); Monocyte# 0.92 X10^3/uL; Monocyte% 10.6 % (0-10); NRBC Flagged by Analyzer 0 % (0-5); Neutrophil # 6.44 X10^3/uL (2.7-7.7); Platelet Count 172 K/mm3 (150-450); RBC Distribution Width CV 14.1 % (11.6-14.6); RBC Distribution Width SD 48.7 fl (35.1-43.9); Red Blood Count 3.22 M/mm3 (4.2-5.4); White Blood Count 8.7 K/mm3 (4.4-11.0)
[2020-09-20 08:26] LABS: Anion Gap 8 (5-15); BUN 35 mg/dL (7-18); BUN/Creat Ratio 27.1 RATIO (10-20); Chloride 109 mmol/L (98-107); Creatinine, Serum 1.29 mg/dL (0.55-1.02); EST Glomerular Filtration Rate 43 mL/min (>60); Est Glom Filt Rate - Afr Amer 52 mL/min (>60); Estimated Creatinine Clearance 33.54 ml/min; Glucose 158 mg/dL (74-106); Potassium 4.8 mmol/L (3.5-5.1); Sodium Level 136 mmol/L (136-145); Thyroid Stim Hormone (TSH) 0.34 uIU/mL (0.358-3.74)
--- NOTE | 2020-09-20 09:00 | MRI_ITS ---
STUDY: MRI LEFT MIDFOOT REASON FOR EXAM: Female, 75 years old. OSTEO -- Left foot, charcot foot, plantar/lateral TECHNIQUE: Standardized fat and water weighted pulse sequences were obtained in all 3 orthogonal planes. COMPARISON: X-ray 09/19/2020 FINDINGS: Normal talonavicular articulation. Normal calcaneocuboid articulation. Normal navicular-cuneiform articulations. Normal intercuneiform articulations. There is severe degenerative arthrosis of the first tarsometatarsal articulation. Medial subluxation of the first and second cuneiform bones proximal to the first metatarsal bone with a presumedly torn Lisfranc ligament. Normal third tarsometatarsal articulations. Normal cuboid fourth and cuboid fifth tarsometatarsal articulation. Normal first through fifth metatarsi. Normal tibialis anterior tendon. Normal extensor hallucis longus tendon. Normal extensor digitorum longus tendons. Normal peroneus longus tendon and distal insertion. Normal peroneus brevis tendon and distal insertion. There is diffuse atrophy of the intrinsic muscles of the foot consistent with a peripheral neuropathy. Normal extensor digitorum brevis muscle. There is an ulcer of the plantar aspect of the foot in the midline at the level the tarsometatarsal joints with surrounding skin thickening and edema of the subcutaneous kidneys fat consistent with surrounding cellulitis. No loculated fluid collection to suggest abscess. No marrow edema or bony destruction to suggest osteomyelitis. MRI/Lower Ext/No Jt/w/o IMPRESSION: Cellulitis and ulcer of the plantar aspect of the foot but no abscess or osteomyelitis. Electronically Signed: Tonny Khalil MD at 11:18 EDT Tel , Service support ,
--- NOTE | 2020-09-20 09:35 | PN_ITS ---
Subjective Subjective: This is a 75-year-old female with diabetic neuropathy and other multiple comorbidities was seen bedside for left foot infection. She was admitted for IV antibiotics and has developed foot pain and infection. She re lates her nausea and chills have resolved since yesterday and she appears less confused. She denies diarrhea, shortness of breath, chest pain, calf pain. She is amendable to proceed with surgical drainage today. Objective Data Objective Data Vital Signs: Vital Signs Temp Pulse Resp BP Pulse Ox 99.3 F H 82 18 157/69 H 96 09/19/20 20:48 09/19/20 20:59 09/19/20 20:48 09/19/20 20:48 09/20/20 07:12 Oxygen Delivery Method Room Air Weight: 81.2 kg Body Mass Index (BMI) 29.2 Finger Stick Blood Glucose 193 Intake & Output: Intake and Output for Last 24 Hours 09/18/20 09/19/20 09/20/20 23:59 23:59 23:59 Intake Total 825 / 825 Balance 825 / 825 Lab / Micro Data Result Diagrams: 09/20/20 07:05 09/20/20 07:05 Labs: Laboratory Results - last 24 hr 09/19/20 09/19/20 09/19/20 17:45 17:45 17:45 WBC 9.8 RBC 3.68 L Hgb 11.2 L Hct 33.8 L MCV 91.8 MCH 30.4 MCHC 33.1 RDW Std Deviation 47.9 H RDW Coeff of Marco 14.0 Plt Count 178 MPV 9.8 Immature Gran % (Auto) 0.900 Neut % (Auto) 76.3 H Lymph % (Auto) 13.4 L Nicholas % (Auto) 9.1 Eos % (Auto) 0.2 Baso % (Auto) 0.1 Absolute Neuts (auto) 7.5 Absolute Lymphs (auto) 1.31 Nucleated RBC % 0 ESR 44 H Sodium 129 L Potassium 4.7 Chloride 101 Carbon Dioxide 20.0 L Anion Gap 8 BUN 41 H Creatinine 1.43 H Estim Creat Clear Calc 30.26 Est GFR (MDRD) Af Amer 46 L Est GFR (MDRD) Non-Af 38 L BUN/Creatinine Ratio 28.7 H Glucose 383 H Lactic Acid 1.1 Calcium 8.0 L Total Bilirubin 0.30 AST 16 ALT 28 Alkaline Phosphatase 91 Troponin I 0.182 H C-React Prot Ext Range 206.00 H Total Protein 7.3 Albumin 2.4 L Globulin 4.9 H Albumin/Globulin Ratio 0.5 L Lipase 35 L TSH Urine Color Urine Clarity Urine pH Ur Specific [place] Urine Protein Urine Glucose (UA) Urine Ketones Urine Occult Blood Urine Nitrite Urine Bilirubin Urine Urobilinogen Ur Leukocyte Esterase Urine RBC Urine WBC Ur Squamous Epith Cells Urine Bacteria Urine Mucus Acetone Level POC Glucose 09/19/20 09/19/20 09/19/20 17:45 18:30 21:25 WBC RBC Hgb Hct MCV MCH MCHC RDW Std Deviation RDW Coeff of Marco Plt Count MPV Immature Gran % (Auto) Neut % (Auto) Lymph % (Auto) Nicholas % (Auto) Eos % (Auto) Baso % (Auto) Absolute Neuts (auto) Absolute Lymphs (auto) Nucleated RBC % ESR Sodium Potassium Chloride Carbon Dioxide Anion Gap BUN Creatinine Estim Creat Clear Calc Est GFR (MDRD) Af Amer Est GFR (MDRD) Non-Af BUN/Creatinine Ratio Glucose Lactic Acid Calcium Total Bilirubin AST ALT Alkaline Phosphatase Troponin I 0.166 H C-React Prot Ext Range Total Protein Albumin Globulin Albumin/Globulin Ratio Lipase TSH Urine Color Yellow Urine Clarity Clear Urine pH 5.0 Ur Specific [place] 1.010 Urine Protein 30 H Urine Glucose (UA) 1000 H Urine Ketones Negative Urine Occult Blood 25 H Urine Nitrite Negative Urine Bilirubin Negative Urine Urobilinogen Normal Ur Leukocyte Esterase 100 H Urine RBC 0 SEEN Urine WBC 5-10 SEEN Ur Squamous Epith Cells 0-5 SEEN Urine Bacteria 0 SEEN Urine Mucus 0 SEEN Acetone Level NEGATIVE POC Glucose 09/19/20 09/19/20 09/20/20 21:57 23:35 06:17 WBC RBC Hgb Hct MCV MCH MCHC RDW Std Deviation RDW Coeff of Marco Plt Count MPV Immature Gran % (Auto) Neut % (Auto) Lymph % (Auto) Nicholas % (Auto) Eos % (Auto) Baso % (Auto) Absolute Neuts (auto) Absolute Lymphs (auto) Nucleated RBC % ESR Sodium Potassium Chloride Carbon Dioxide Anion Gap BUN Creatinine Estim Creat Clear Calc Est GFR (MDRD) Af Amer Est GFR (MDRD) Non-Af BUN/Creatinine Ratio Glucose Lactic Acid Calcium Total Bilirubin AST ALT Alkaline Phosphatase Troponin I 0.183 H C-React Prot Ext Range Total Protein Albumin Globulin Albumin/Globulin Ratio Lipase TSH Urine Color Urine Clarity Urine pH Ur Specific [place] Urine Protein Urine Glucose (UA) Urine Ketones Urine Occult Blood Urine Nitrite Urine Bilirubin Urine Urobilinogen Ur Leukocyte Esterase Urine RBC Urine WBC Ur Squamous Epith Cells Urine Bacteria Urine Mucus Acetone Level POC Glucose 342 H 164 H 09/20/20 09/20/20 07:05 07:05 WBC 8.7 RBC 3.22 L Hgb 9.7 L Hct 30.1 L MCV 93.5 MCH 30.1 MCHC 32.2 RDW Std Deviation 48.7 H RDW Coeff of Marco 14.1 Plt Count 172 MPV 9.6 Immature Gran % (Auto) 0.700 Neut % (Auto) 74.0 H Lymph % (Auto) 13.8 L Nicholas % (Auto) 10.6 H Eos % (Auto) 0.7 Baso % (Auto) 0.2 Absolute Neuts (auto) 6.4 Absolute Lymphs (auto) 1.20 Nucleated RBC % 0 ESR Sodium 136 Potassium 4.8 Chloride 109 H Carbon Dioxide 19.0 L Anion Gap 8 BUN 35 H Creatinine 1.29 H Estim Creat Clear Calc 33.54 Est GFR (MDRD) Af Amer 52 L Est GFR (MDRD) Non-Af 43 L BUN/Creatinine Ratio 27.1 H Glucose 158 H Lactic Acid Calcium 8.0 L Total Bilirubin AST ALT Alkaline Phosphatase Troponin I C-React Prot Ext Range Total Protein Albumin Globulin Albumin/Globulin Ratio Lipase TSH 0.34 L Urine Color Urine Clarity Urine pH Ur Specific [place] Urine Protein Urine Glucose (UA) Urine Ketones Urine Occult Blood Urine Nitrite Urine Bilirubin Urine Urobilinogen Ur Leukocyte Esterase Urine RBC Urine WBC Ur Squamous Epith Cells Urine Bacteria Urine Mucus Acetone Level POC Glucose Radiography Diagnostic Testing: Radiology Impression Chest X-Ray 09/19/20 17:05 IMPRESSION: Degenerative changes, as described above. No demonstrated acute cardiopulmonary process. Electronically Signed: John Malin MD at 17:27 EDT , Service support , Foot X-Ray 09/19/20 17:05 IMPRESSION: Severe degenerative and arthritic changes throughout the left foot without acute traumatic abnormality or significant interval change since the previous study Pes planus Calcaneal spurs Electronically Signed: John Malin MD at 17:29 EDT , Service support , Rhythm Strip Rhythm Strip: Sinus Rhythm Rate: 78 Ectopy: None Physical Exam Const alert, oriented x3 and no apparent distress Constitutional Narrative: confusion resolved General Appearance: cooperative Orientation / Consciousness: awake HEENT normocephalic Cardio Peripheral Pulses: dorsalis pedis pulses present Extremity normal capillary refill and no calf tenderness Extremity Narrative: edema lower extremity. diminished pulses to palpate left DP and PT. Skin Wound Narrative: skin discontinuity plantar arch with diffuse decreased erythema intensity w/ tracking to plantar medial midfoot. Purulence drainage noted today on expression without odor. no necrosis or eschar. no adjacent crepitus or bogginess on palpation. skin is atrophic and hairless Neuro Neuro Narrative: lack of epicritic sensation via light touch is consistent with neuropathic status Gait (Neuro): unable to assess gait Sensory Exam: sensory level loss detected Psych cooperative and affect normal Attitude: calm Judgement: judgement good Assessment & Plan Assessment/Plan (1) Cellulitis of left foot: Status: Acute Code(s): L03.116 - Cellulitis of left lower limb Plan: I reviewed and discussed her case. She is afebrile this morning and her vitals are stable. Her erythema is slightly decreased in intensity however there is drainage expressed from the plantar medial aspect of the midfoot. She has been on IV antibiotics overnight and her cultures that were obtained from the department are pending from yesterday. I recommend proceeding with surgical incisional drainage today. She is n.p.o. and anticoagulation occasion has been held. This is not an elective procedure. Infectious disease is on consult and is appreciated. Broad-spectrum antibiotics initiated. Betadine wet-to-dry deep wound packing was applied this morning. She is initially scheduled for outpatient vascular intervention at outside facility today and this has been canceled due to her current infection status. Dr. Pang was placed on continuity of care consult and I informed Dr. Pang of her admission. Preoperative information was reviewed including his diagnostic data. There is no gross abnormalities noted with labs for preoperative EKG. Preoperative indications, planned procedure, benefits, risk, anticipated healing time and ma nagement were reviewed. The patient understands and elects proceed with surgery at this time. No guarantees were made. The patient understands risk and complications include but are not limited to following: pain, swelling, scarring, need for further surgery, tendon contracture, transfer lesion, hardware failure, arthritis, need for further surgery, delayed or nonhealing, infection, blood clot, allergic reaction, loss of limb, function, or life. The informed surgical limb and consent will need to be signed For left foot incision and drainage with debridement of devitalized soft tissue and bone with potential bone biopsy. I answered all the patient's questions. Her surgery is tentativel y scheduled for 13:45. It is also noted she will obtain an MRI this morning this will be reviewed for preoperative purposes. Her osteomyelitis and abscess work- up is still in process. Management per hospitalist service is appreciated. Please not hesitate to call with any questions. 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
[2020-09-20 09:46] LABS: Hemoglobin A1c 7.1 % (3.8-5.6)
--- NOTE | 2020-09-20 10:42 | CON.PCM.ID_ITS ---
Assessment & Plan Assessment/Plan (1) Diabetic infection of left foot: Status: Acute Code(s): E11.628 - Type 2 diabetes mellitus with other skin complications; L08.9 - Local infection of the skin and subcutaneous tissue, unspecified Plan: OR today. On empiric vanc/zosyn. Recent cxs with MS-CoNS, enterococcus, strep. Will follow, thank you HPI Consult Data Date of Consult: 09/20/20 HPI Narrative HPI Narrative: SEBASTIÁN REYES, is a 75 F who presents with several days worsened L foot pain, redness, swelling drainage. Recently admitted for L foot abscess wit h no osteo, requiring surgical I&D, course of iv abx. Denies any inciting event or contamination of this wound since discharge from TCU. Had some associated fever, chills, aches, nausea. Has completed covid vaccine. Admitted here, started on vanc/zosyn, going to OR today. Full ROS performed and neg except as noted above. [facility], [facility] Medical History (Updated 09/20/20 @ 00:[address] Bernadette Zayas, DO) Atherosclerotic heart disease of [place] coronary artery without angina pectoris Carotid artery disease Carpal tunnel syndrome Charcot's joint of left foot Essential hypertension GERD (gastroesophageal reflux disease) Gout History of blood clots History of blood transfusion History of CVA (cerebrovascular accident) Hyperlipidemia Hypothyroidism IBS (irritable bowel syndrome) Iron deficiency anemia Neuropathy Obesity Osteoporosis Peripheral arterial occlusive disease Peripheral vascular disease Type 2 diabetes mellitus with diabetic polyneuropathy Ulcer of abdomen wall with fat layer exposed Ulcer of left foot with fat layer exposed Vitamin D deficiency Home Medications pravastatin 40 mg PO QHS 03/10/17 [History Last Taken 09/18/20] amlodipine 5 mg tablet 5 mg PO DAILY tab 05/05/18 [History Last Taken 09/19/20] esomeprazole magnesium 20 mg PO DAILY 09/21/19 [History Last Taken 09/19/20] allopurinol 100 mg PO DAILY 03/17/20 [History Last Taken 09/19/20] calcium citrate 200 mg PO BID #0 03/17/20 [Rx Last Taken 09/19/20] aspirin 81 mg tablet,delayed release 81 mg PO DAILY 04/05/20 [History Last Taken 09/18/20] cbd 1 dose PO 4X/DAY PRN 04/05/20 [History Last Taken Unknown] ejyynx-haayxkuy-tgwvaqy 24,000-76,000-120,000 unit capsule,delayed rel 1 cap PO BID cap 04/05/20 [History Last Taken 09/19/20] carvedilol 25 mg PO BID 08/17/20 [History Last Taken 09/19/20] isosorbide mononitrate 60 mg PO DAILY 08/17/20 [History Last Taken 09/18/20] isosorbide mononitrate 120 mg PO DAILY 08/17/20 [History Last Taken 09/19/20] levothyroxine 75 mcg PO QHS 08/17/20 [History Last Taken 09/18/20] linaclotide 72 mcg PO DAILY 08/17/20 [History Last Taken 09/14/20] melatonin 6 mg PO QHS 08/17/20 [History Last Taken 09/18/20] metoclopramide HCl 10 mg PO Q8H PRN 08/17/20 [History Last Taken 09/19/20] stocodkyrnpu-bnqn-eipla acid 0.5 tablet PO BID 08/17/20 [History Last Taken 09/19/20] trazodone 100 mg PO QHS PRN 08/17/20 [History Last Taken 09/18/20] venlafaxine 100 mg PO BID 08/17/20 [History Last Taken 09/19/20] wheat dextrin 15 ml PO DAILY 08/17/20 [History Last Taken 09/19/20] insulin glargine 30 units SC BID 08/22/20 [History Last Taken 09/19/20] insulin lispro 8 unit SC BID 08/22/20 [History Last Taken 09/19/20] acetaminophen 1,000 mg PO Q8H PRN PRN #0 tablet 09/09/20 [Rx Last Taken 09/19/20] tizanidine 4 mg PO Q8H PRN PRN #20 tablet 09/09/20 [Rx Last Taken 09/19/20] clopidogrel 75 mg tablet 75 mg PO DAILY #90 tablet 09/16/20 [Rx Last Taken 09/19/20] vgbes-uxlm-ZwDFG-gnhxqz-od-jzn 1 packet PO BIDCM 09/19/20 [History Last Taken 09/19/20] celecoxib 200 mg PO DAILY 09/19/20 [History Last Taken 09/18/20] morphine 3 ml PO Q6H PRN PRN 09/19/20 [History Last Taken 09/19/20] nitroglycerin 0.4 mg SL TID PRN PRN 09/19/20 [History Last Taken Unknown] polyethylene glycol 3350 17 gm PO DAILY 09/19/20 [History Last Taken 09/19/20] sennosides-docusate sodium 1 tablet PO BID 09/19/20 [History Last Taken 09/19/20] Allergy/AdvReac Type Severity Reaction Status Date / Time doxycycline Allergy Severe all over Verified 08/17/20 15:19 body hives and itching atorvastatin calcium Allergy Unknown Verified 08/17/20 15:19 [From Lipitor] bupropion HCl Allergy Unknown Verified 08/17/20 15:19 [From Wellbutrin] mannitol [From Reclast] Allergy joint Verified 08/17/20 15:19 pain, unable to breathe, unable to walk propoxyphene napsylate Allergy Unknown Verified 08/17/20 15:19 [From Darvocet-N 100] Quinolones Allergy Unknown Verified 08/17/20 15:19 Tetanus Vaccines and Toxoid Allergy Chest Verified 08/17/20 15:19 [Tetanus Vaccines & Toxoid] tightness tizanidine Allergy Unknown Verified 08/17/20 15:19 zoledronic acid Allergy joint Verified 08/17/20 15:19 [From Reclast] pain,unable to breathe, unaable to walk pravastatin AdvReac Severe Myalgias Verified 08/17/20 15:19 gemfibrozil AdvReac Intermediate Unknown Verified 08/17/20 15:19 NSAIDS (Non-Steroidal AdvReac Other Verified 08/17/20 15:19 Anti-Inflamma Family History Mother , age 75 Cancer CVA (cerebral vascular accident) CAD (coronary artery disease) Father CAD (coronary artery disease) History of coronary artery bypass graft Sister CAD (coronary artery disease) Multiple sclerosis Other Anxiety Bleeding disorder Depression Diabetes Heart disease High cholesterol Hypertension Surgical History History of coronary artery bypass graft History of excision of lesion History of gastric bypass History of gastric bypass History of left heart catheterization History of ventral hernia repair Hx of ventral hernia repair Stented coronary artery (12/03/18) Social History (Updated 06/10/20 @ 23:21 by Olga Villagran NP, [employer]) Smoking Status: Never smoker alcohol intake: never substance use type: does not use caffeine: Yes Type: coffee what type of physical activity do you participate in: none seatbelt use: sometimes do you feel safe at home: Yes additional social history: DOES NOT TAKE ASPIRIN DOES TAKE IBUPROFEN NEEDED Physical Exam Const alert, oriented x3 and no apparent distress General Appearance: cooperative HEENT head/scalp atraumatic Eyes PERRL Neck supple Lymph Lymphatic: no lymphadenopathy noted Resp normal air movement and clear to auscultation bilaterally Cardio regular rate and regular rhythm GI normal to inspection, nondistended, normoactive bowel sounds Extremity no clubbing, cyanosis or edema Skin Skin Narrative: LLE wrapped Neuro CN's II-XII intact bilaterally Lab / Micro Data Result Diagrams: 09/20/20 07:05 09/20/20 07:05 Labs: Laboratory Results - last 24 hr 09/19/20 09/19/20 09/19/20 17:45 17:45 17:45 WBC 9.8 RBC 3.68 L Hgb 11.2 L Hct 33.8 L MCV 91.8 MCH 30.4 MCHC 33.1 RDW Std Deviation 47.9 H RDW Coeff of Marco 14.0 Plt Count 178 MPV 9.8 Immature Gran % (Auto) 0.900 Neut % (Auto) 76.3 H Lymph % (Auto) 13.4 L [place] % (Auto) 9.1 Eos % (Auto) 0.2 Baso % (Auto) 0.1 Absolute Neuts (auto) 7.5 Absolute Lymphs (auto) 1.31 Nucleated RBC % 0 ESR 44 H Sodium 129 L Potassium 4.7 Chloride 101 Carbon Dioxide 20.0 L Anion Gap 8 BUN 41 H Creatinine 1.43 H Estim Creat Clear Calc 30.26 Est GFR (MDRD) Af Amer 46 L Est GFR (MDRD) Non-Af 38 L BUN/Creatinine Ratio 28.7 H Glucose 383 H Hemoglobin A1c Lactic Acid 1.1 Calcium 8.0 L Total Bilirubin 0.30 AST 16 ALT 28 Alkaline Phosphatase 91 Troponin I 0.182 H C-React Prot Ext Range 206.00 H Total Protein 7.3 Albumin 2.4 L Globulin 4.9 H Albumin/Globulin Ratio 0.5 L Lipase 35 L TSH Urine Color Urine Clarity Urine pH Ur Specific [place] Urine Protein Urine Glucose (UA) Urine Ketones Urine Occult Blood Urine Nitrite Urine Bilirubin Urine Urobilinogen Ur Leukocyte Esterase Urine RBC Urine WBC Ur Squamous Epith Cells Urine Bacteria Urine Mucus Acetone Level POC Glucose 09/19/20 09/19/20 09/19/20 17:45 18:30 21:25 WBC RBC Hgb Hct MCV MCH MCHC RDW Std Deviation RDW Coeff of [place] Plt Count MPV Immature Gran % (Auto) Neut % (Auto) Lymph % (Auto) [place] % (Auto) Eos % (Auto) Baso % (Auto) Absolute Neuts (auto) Absolute Lymphs (auto) Nucleated RBC % ESR Sodium Potassium Chloride Carbon Dioxide Anion Gap BUN Creatinine Estim Creat Clear Calc Est GFR (MDRD) Af Amer Est GFR (MDRD) Non-Af BUN/Creatinine Ratio Glucose Hemoglobin A1c Lactic Acid Calcium Total Bilirubin AST ALT Alkaline Phosphatase Troponin I 0.166 H C-React Prot Ext Range Total Protein Albumin Globulin Albumin/Globulin Ratio Lipase TSH Urine Color Yellow Urine Clarity Clear Urine pH 5.0 Ur Specific [place] 1.010 Urine Protein 30 H Urine Glucose (UA) 1000 H Urine Ketones Negative Urine Occult Blood 25 H Urine Nitrite Negative Urine Bilirubin Negative Urine Urobilinogen Normal Ur Leukocyte Esterase 100 H Urine RBC 0 SEEN Urine WBC 5-10 SEEN Ur Squamous Epith Cells 0-5 SEEN Urine Bacteria 0 SEEN Urine Mucus 0 SEEN Acetone Level NEGATIVE POC Glucose 09/19/20 09/19/20 09/20/20 21:57 23:35 06:17 WBC RBC Hgb Hct MCV MCH MCHC RDW Std Deviation RDW Coeff of [place] Plt Count MPV Immature Gran % (Auto) Neut % (Auto) Lymph % (Auto) [place] % (Auto) Eos % (Auto) Baso % (Auto) Absolute Neuts (auto) Absolute Lymphs (auto) Nucleated RBC % ESR Sodium Potassium Chloride Carbon Dioxide Anion Gap BUN Creatinine Estim Creat Clear Calc Est GFR (MDRD) Af Amer Est GFR (MDRD) Non-Af BUN/Creatinine Ratio Glucose Hemoglobin A1c Lactic Acid Calcium Total Bilirubin AST ALT Alkaline Phosphatase Troponin I 0.183 H C-React Prot Ext Range Total Protein Albumin Globulin Albumin/Globulin Ratio Lipase TSH Urine Color Urine Clarity Urine pH Ur Specific [place] Urine Protein Urine Glucose (UA) Urine Ketones Urine Occult Blood Urine Nitrite Urine Bilirubin Urine Urobilinogen Ur Leukocyte Esterase Urine RBC Urine WBC Ur Squamous Epith Cells Urine Bacteria Urine Mucus Acetone Level POC Glucose 342 H 164 H 09/20/20 09/20/20 09/20/20 07:05 07:05 07:05 WBC 8.7 RBC 3.22 L Hgb 9.7 L Hct 30.1 L MCV 93.5 MCH 30.1 MCHC 32.2 RDW Std Deviation 48.7 H RDW Coeff of Marco 14.1 Plt Count 172 MPV 9.6 Immature Gran % (Auto) 0.700 Neut % (Auto) 74.0 H Lymph % (Auto) 13.8 L [place] % (Auto) 10.6 H Eos % (Auto) 0.7 Baso % (Auto) 0.2 Absolute Neuts (auto) 6.4 Absolute Lymphs (auto) 1.20 Nucleated RBC % 0 ESR Sodium 136 Potassium 4.8 Chloride 109 H Carbon Dioxide 19.0 L Anion Gap 8 BUN 35 H Creatinine 1.29 H Estim Creat Clear Calc 33.54 Est GFR (MDRD) Af Amer 52 L Est GFR (MDRD) Non-Af 43 L BUN/Creatinine Ratio 27.1 H Glucose 158 H Hemoglobin A1c 7.1 H Lactic Acid Calcium 8.0 L Total Bilirubin AST ALT Alkaline Phosphatase Troponin I C-React Prot Ext Range Total Protein Albumin Globulin Albumin/Globulin Ratio Lipase TSH 0.34 L Urine Color Urine Clarity Urine pH Ur Specific [place] Urine Protein Urine Glucose (UA) Urine Ketones Urine Occult Blood Urine Nitrite Urine Bilirubin Urine Urobilinogen Ur Leukocyte Esterase Urine RBC Urine WBC Ur Squamous Epith Cells Urine Bacteria Urine Mucus Acetone Level POC Glucose Micro: Microbiology 09/19/20 20:15 Gram Stain - Final Tissue Ulcer - Tissue 09/19/20 17:45 - Final Blood Culture (Wb) - Anticubital Left Streptococcus agalactiae (B) Blood Culture - Preliminary Streptococcus agalactiae (B) Rhythm Strip Rhythm Strip: Sinus Rhythm Rate: 78 Ectopy: None Radiology Impression Chest X-Ray 09/19/20 17:05 IMPRESSION: Degenerative changes, as described above. No demonstrated acute cardiopulmonary process. Electronically Signed: John Malin MD at 17:27 EDT , Service support , Foot X-Ray 09/19/20 17:05 IMPRESSION: Severe degenerative and arthritic changes throughout the left foot without acute traumatic abnormality or significant interval change since the previous study Pes planus Calcaneal spurs Electronically Signed: John Malin MD at 17:29 EDT , Service support ,
--- NOTE | 2020-09-20 10:44 | NURSING ---
wound photo: left foot
--- NOTE | 2020-09-20 10:50 | CASEMGMT ---
Addendum entered by Sunni Cardoza 09/21/20 14:17: Pt is active with Palliative Care and they are aware pt is admitted to [facility]. Addendum entered by Sunni Cardoza 09/21/20 14:08: Late entry for 09/20/20- RN CM Readmission Note Previous Admission: 08/17/20-08/22/20 Diagnosis: Diabetic Foot Infection, abscess DC Disposition: Pt transferred to TCU. Pt stayed from 08/22/20-09/09/20. Pt was then dc'd home with . Pt denied need for HHC. Current Admission Presentation: 09/19/20 Diagnosis: Diabetic foot infection Pt sent to [facility] from treasury specialist office due to wound possibly needing IV antibiotics. Pt admitted and had surgery for incision and drainage and debridement on 09/20/20. DC PLAN: See below Original Note: GRICELDA REED Assessment: Face to Face with pt for initial transition planning/care coordination assessment. GRICELDA REED introduced self and role at [facility], pt voices understanding and consents to assessment. Pt is A/O x4 and answers all questions appropriately at this time. Pt sitting up in bed in no distress but at time states she has pain in her foot. Care providers, pharmacy, and demographics verified/updated. Admitting Dx: Diabetic Foot Infection PCP: Alex Specialists: jimmy Mims; pamella Pedro; [place] at wound center [facility]. Preferred Pharmacy: [facility] Insurance: [employer], [employer] Benefits Prescription Benefit: yes LW/HPOA: Pt has LW and DPOA on file, DPOA is daughter in law Madison Warefox LNOK: Logan Seay, ; Madison DASILVA Living Arrangements: Pt lives with and dragan Angel in a 2 story house with no steps to enter. Pt denies concerns at home. Transportation: Pt states her transports her. Denies concerns with transportation. DME/HHC/SNF: Pt states she has a cane, walker, knee scooter, BSC, shower seat, w/c and electric scooter at home. States she has had [facility] HHS in the past. She also states she has had a SNF stay at [facility] and [facility] [place]. Pt is current with Palliative Care with [facility]. Pt states no concerns with going home at time of dc. She states that she and her complete the wound care. She denies need for HHC at this time. She is going to surgery this afternoon, CM made aware this CM will follow to see what her wound care needs are post surgery. Pt states no further concerns/needs. CM to follow. Advised pt to ask CM if any further question/concerns/needs arise, voices understanding. Pt Goal: Home Plan: Home with family support, will follow for HHC needs.
[2020-09-20 11:05] LABS: Bedside Glucose 156 mg/dL (70-110)
--- NOTE | 2020-09-20 13:01 | PN.HOSP_ITS ---
Subjective Subjective: Denies any new complaints. Objective Data Objective Data Vital Signs: Vital Signs Temp Pulse Resp BP Pulse Ox 36.4 C L 75 18 138/57 H 99 09/20/20 10:41 09/20/20 10:41 09/20/20 10:41 09/20/20 10:41 09/20/20 10:41 Oxygen Delivery Method Room Air Weight: 81.5 kg Body Mass Index (BMI) 29.9 Finger Stick Blood Glucose 193 Intake & Output: Intake and Output for Last 24 Hours 09/18/20 09/19/20 09/20/20 23:59 23:59 23:59 Intake Total 825 / 825 1000 / 1000 Balance 825 / 825 1000 / 1000 Lab / Micro Data Result Diagrams: 09/20/20 07:05 09/20/20 07:05 Labs: Laboratory Results - last 24 hr 09/19/20 09/19/20 09/19/20 17:45 17:45 17:45 WBC 9.8 RBC 3.68 L Hgb 11.2 L Hct 33.8 L MCV 91.8 MCH 30.4 MCHC 33.1 RDW Std Deviation 47.9 H RDW Coeff of Marco 14.0 Plt Count 178 MPV 9.8 Immature Gran % (Auto) 0.900 Neut % (Auto) 76.3 H Lymph % (Auto) 13.4 L [place] % (Auto) 9.1 Eos % (Auto) 0.2 Baso % (Auto) 0.1 Absolute Neuts (auto) 7.5 Absolute Lymphs (auto) 1.31 Nucleated RBC % 0 ESR 44 H Sodium 129 L Potassium 4.7 Chloride 101 Carbon Dioxide 20.0 L Anion Gap 8 BUN 41 H Creatinine 1.43 H Estim Creat Clear Calc 30.26 Est GFR (MDRD) Af Amer 46 L Est GFR (MDRD) Non-Af 38 L BUN/Creatinine Ratio 28.7 H Glucose 383 H Hemoglobin A1c Lactic Acid 1.1 Calcium 8.0 L Total Bilirubin 0.30 AST 16 ALT 28 Alkaline Phosphatase 91 Troponin I 0.182 H C-React Prot Ext Range 206.00 H Total Protein 7.3 Albumin 2.4 L Globulin 4.9 H Albumin/Globulin Ratio 0.5 L Lipase 35 L TSH Urine Color Urine Clarity Urine pH Ur Specific [place] Urine Protein Urine Glucose (UA) Urine Ketones Urine Occult Blood Urine Nitrite Urine Bilirubin Urine Urobilinogen Ur Leukocyte Esterase Urine RBC Urine WBC Ur Squamous Epith Cells Urine Bacteria Urine Mucus Acetone Level POC Glucose 09/19/20 09/19/20 09/19/20 17:45 18:30 21:25 WBC RBC Hgb Hct MCV MCH MCHC RDW Std Deviation RDW Coeff of Marco Plt Count MPV Immature Gran % (Auto) Neut % (Auto) Lymph % (Auto) [place] % (Auto) Eos % (Auto) Baso % (Auto) Absolute Neuts (auto) Absolute Lymphs (auto) Nucleated RBC % ESR Sodium Potassium Chloride Carbon Dioxide Anion Gap BUN Creatinine Estim Creat Clear Calc Est GFR (MDRD) Af Amer Est GFR (MDRD) Non-Af BUN/Creatinine Ratio Glucose Hemoglobin A1c Lactic Acid Calcium Total Bilirubin AST ALT Alkaline Phosphatase Troponin I 0.166 H C-React Prot Ext Range Total Protein Albumin Globulin Albumin/Globulin Ratio Lipase TSH Urine Color Yellow Urine Clarity Clear Urine pH 5.0 Ur Specific [place] 1.010 Urine Protein 30 H Urine Glucose (UA) 1000 H Urine Ketones Negative Urine Occult Blood 25 H Urine Nitrite Negative Urine Bilirubin Negative Urine Urobilinogen Normal Ur Leukocyte Esterase 100 H Urine RBC 0 SEEN Urine WBC 5-10 SEEN Ur Squamous Epith Cells 0-5 SEEN Urine Bacteria 0 SEEN Urine Mucus 0 SEEN Acetone Level NEGATIVE POC Glucose 09/19/20 09/19/20 09/20/20 21:57 23:35 06:17 WBC RBC Hgb Hct MCV MCH MCHC RDW Std Deviation RDW Coeff of Marco Plt Count MPV Immature Gran % (Auto) Neut % (Auto) Lymph % (Auto) [place] % (Auto) Eos % (Auto) Baso % (Auto) Absolute Neuts (auto) Absolute Lymphs (auto) Nucleated RBC % ESR Sodium Potassium Chloride Carbon Dioxide Anion Gap BUN Creatinine Estim Creat Clear Calc Est GFR (MDRD) Af Amer Est GFR (MDRD) Non-Af BUN/Creatinine Ratio Glucose Hemoglobin A1c Lactic Acid Calcium Total Bilirubin AST ALT Alkaline Phosphatase Troponin I 0.183 H C-React Prot Ext Range Total Protein Albumin Globulin Albumin/Globulin Ratio Lipase TSH Urine Color Urine Clarity Urine pH Ur Specific [place] Urine Protein Urine Glucose (UA) Urine Ketones Urine Occult Blood Urine Nitrite Urine Bilirubin Urine Urobilinogen Ur Leukocyte Esterase Urine RBC Urine WBC Ur Squamous Epith Cells Urine Bacteria Urine Mucus Acetone Level POC Glucose 342 H 164 H 0409/20/20 09/20/20 07:05 07:05 07:05 WBC 8.7 RBC 3.22 L Hgb 9.7 L Hct 30.1 L MCV 93.5 MCH 30.1 MCHC 32.2 RDW Std Deviation 48.7 H RDW Coeff of Marco 14.1 Plt Count 172 MPV 9.6 Immature Gran % (Auto) 0.700 Neut % (Auto) 74.0 H Lymph % (Auto) 13.8 L [place] % (Auto) 10.6 H Eos % (Auto) 0.7 Baso % (Auto) 0.2 Absolute Neuts (auto) 6.4 Absolute Lymphs (auto) 1.20 Nucleated RBC % 0 ESR Sodium 136 Potassium 4.8 Chloride 109 H Carbon Dioxide 19.0 L Anion Gap 8 BUN 35 H Creatinine 1.29 H Estim Creat Clear Calc 33.54 Est GFR (MDRD) Af Amer 52 L Est GFR (MDRD) Non-Af 43 L BUN/Creatinine Ratio 27.1 H Glucose 158 H Hemoglobin A1c 7.1 H Lactic Acid Calcium 8.0 L Total Bilirubin AST ALT Alkaline Phosphatase Troponin I C-React Prot Ext Range Total Protein Albumin Globulin Albumin/Globulin Ratio Lipase TSH 0.34 L Urine Color Urine Clarity Urine pH Ur Specific [place] Urine Protein Urine Glucose (UA) Urine Ketones Urine Occult Blood Urine Nitrite Urine Bilirubin Urine Urobilinogen Ur Leukocyte Esterase Urine RBC Urine WBC Ur Squamous Epith Cells Urine Bacteria Urine Mucus Acetone Level POC Glucose 09/20/20 10:53 WBC RBC Hgb Hct MCV MCH MCHC RDW Std Deviation RDW Coeff of Marco Plt Count MPV Immature Gran % (Auto) Neut % (Auto) Lymph % (Auto) [place] % (Auto) Eos % (Auto) Baso % (Auto) Absolute Neuts (auto) Absolute Lymphs (auto) Nucleated RBC % ESR Sodium Potassium Chloride Carbon Dioxide Anion Gap BUN Creatinine Estim Creat Clear Calc Est GFR (MDRD) Af Amer Est GFR (MDRD) Non-Af BUN/Creatinine Ratio Glucose Hemoglobin A1c Lactic Acid Calcium Total Bilirubin AST ALT Alkaline Phosphatase Troponin I C-React Prot Ext Range Total Protein Albumin Globulin Albumin/Globulin Ratio Lipase TSH Urine Color Urine Clarity Urine pH Ur Specific [place] Urine Protein Urine Glucose (UA) Urine Ketones Urine Occult Blood Urine Nitrite Urine Bilirubin Urine Urobilinogen Ur Leukocyte Esterase Urine RBC Urine WBC Ur Squamous Epith Cells Urine Bacteria Urine Mucus Acetone Level POC Glucose 156 H Micro: Microbiology 09/19/20 20:15 Tissue Ulcer - Tissue Gram Stain - Final 09/19/20 17:45 Blood Culture (Wb) - Anticubital Left - Final Streptococcus agalactiae (B) 09/19/20 17:45 Blood Culture (Wb) - Anticubital Left Blood Culture - Preliminary Streptococcus agalactiae (B) Radiography Diagnostic Testing: Radiology Impression Chest X-Ray 09/19/20 17:05 IMPRESSION: Degenerative changes, as described above. No demonstrated acute cardiopulmonary process. Electronically Signed: John Malin MD at 17:27 EDT , Service support , Foot X-Ray 09/19/20 17:05 IMPRESSION: Severe degenerative and arthritic changes throughout the left foot without acute traumatic abnormality or significant interval change since the previous study Pes planus Calcaneal spurs Electronically Signed: John Malin MD at 17:29 EDT , Service support , Lower Extremity MRI 09/20/20 09:00 IMPRESSION: Cellulitis and ulcer of the plantar aspect of the foot but no abscess or osteomyelitis. Electronically Signed: Tonny Khalil MD at 11:18 EDT Tel , Service support , Rhythm Strip Rhythm Strip: Sinus Rhythm Rate: 78 Ectopy: None Physical Exam Const alert and average body habitus Resp normal respiratory effort and clear to auscultation bilaterally Cardio regular rate, regular rhythm, S1 normal heart sound and S2 normal heart sound GI normal to inspection, nondistended, normoactive bowel sounds, soft to palpation, non-tender and non-distended Extremity Extremity Narrative: left foot wrapped--did not remove. Assessment & Plan Assessment/Plan (1) Cellulitis of left foot: Status: Acute Code(s): L03.116 - Cellulitis of left lower limb Plan: No osteomyelitis noted on MRI mami and pip/tazo KHOA Magana, before Expanse was available to review. Plan to take to surgery given emergency and threat of limb. (2) Elevated troponin: Status: Acute Code(s): R77.8 - Other specified abnormalities of plasma proteins Plan: Peaked at 0.183. Given the emergency of procedure, which defer cardiac eval until afterwards. Will need echo, stress.
--- NOTE | 2020-09-20 13:15 | ECHOD_ITS ---
Reason For Study: Elevated troponins, CAD Procedure This was a 2D Doppler, Color Flow transthoracic echocardiogram. The exam was of adequate technical quality. Exam performed portable in patient room. Left Ventricle Normal LV size. Sigmoid septum. Left ventricular systolic function is normal. The estimated ejection fraction is 70 %. Diastolic function is indeterminate. No regional wall motion abnormalities noted. Right Ventricle Normal RV size. Normal systolic function. Atria The left atrium is mildly enlarged. Normal right atrium. No doppler evidence for ASD. Mitral Valve There is mild mitral annular calcification. Mild diffuse mitral valve thickening. Mild (1+) mitral valve insufficiency. Tricuspid Valve Normal tricuspid valve. Mild to moderate (1-2+) tricuspid valve insufficiency. Right ventricular systolic pressure estimated to be 44 mmHg. Aortic Valve Trisinus/trileaflet aortic valve. Mild diffuse aortic valve thickening. Trivial aortic valve insufficiency. Pulmonic Valve The pulmonic valve is not well visualized. Trivial pulmonic valve insufficiency. Great Vessels Normal sized aortic root. Pericardium/Pleural No pericardial effusion. MMode/2D Measurements & Calculations LVIDd: 4.2 cm IVSd: 1.3 cm Ao root diam: 3.3 cm LVIDs: 3.3 cm LVPWd: 0.72 cm RVDd: 3.4 cm FS: 23.1 % LAV(MOD-bp): 60.2 ml LA A4 area: 18.9 cm2 LA dimension(2D): 4.6 cm LAV(MOD-bp) Indexed: 31.8 ml/m2 LAV(MOD-sp2): 62.2 ml LAV(MOD-sp4): 53.5 ml RA A4 area: 12.7 cm2 Doppler Measurements & Calculations MV E max ebenezer: 135.4 cm/sec Lat Peak E' Ebenezer: 10.2 cm/sec Med Peak E' Ebenezer: 8.0 cm/sec MV A max ebenezer: 135.4 cm/sec E/E' lat: 13.3 E/E' med: 17.0 MV E/A: 1.0 Ao V2 max: 145.6 cm/sec AI max ebenezer: 363.0 cm/sec LV V1 max: 105.2 cm/sec Ao max P.5 mmHg AI max P.7 mmHg LV V1 max P.4 mmHg AI dec slope: 324.1 cm/sec2 AI P1/2t: 328.1 msec PA V2 max: 134.0 cm/sec TR max ebenezer: 321.2 cm/sec TR max P.3 mmHg ECHO/Echo Complete Interpretation Summary Left ventricular systolic function is normal. The estimated ejection fraction is 70 %. Sigmoid septum. The left atrium is mildly enlarged. There is mild mitral annular calcification. Mild diffuse mitral valve thickening. Mild (1+) mitral valve insufficiency. Mild to moderate (1-2+) tricuspid valve insufficiency. Mild diffuse aortic valve thickening. Trivial aortic valve insufficiency. Trivial pulmonic valve insufficiency. Right ventricular systolic pressure estimated to be 44 mmHg. Diastolic function is indeterminate. Ordering Physician: Con Hernandez Referring Physician: Con Johnson MD Performed By: Gaby Bowman RDCS
[2020-09-20] MEDS: Bupivacaine Mpf 0.5% 30 ML VIAL (14:00)
[2020-09-20] MEDS: Lidocaine 1% (30 ml sdv) 30 ML Vial (14:00)
--- NOTE | 2020-09-20 14:34 | OP.PCM_ITS ---
Problems Associated Problem List Diagnoses (1) Cellulitis of left foot: (2) 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: (3) Abscess of left foot: Report of Operation Date of Procedure: 09/20/20 Pre-Operative Diagnosis: abscess left foot Post-Operative Diagnosis: abscess left foot Surgery/Procedure Performed:: incision and drainage left foot with debridement of devitalized subcutaneous and muscle tissue Description of Surgical Findings:: Hemostasis: no tourniquet utilized, anatomic dissection performed Materials: gel foam Injections: preoperative - 1:1 mixture of 1% lidocaine plain and 0.5% marcaine plain administered in typical left ankle flock fashion left lower extremity Specimens sent Main findings: purulence resolved after debridement and irrigation. no deep necrosis, direct communication with bone or additional purulence noted sterilization technician: None Type of Anesthesia: Local MAC Specimen's removed: 1. post irrigation soft tissue sent to microbiology (aerobic, anearobic, acid fast, fungal) 2. post irrigation MRSA PCR Drains: none Estimated Blood Loss (mL): 200 mL Description of Procedure: Indications: This 75-year-old female with the following comorbidities presented to clinic with new onset left foot infection: diabetes with neuropathy, hypertension, hyperlipidemia, coronary artery disease, prior CVA, history of blood clot, history of anemia, sleep apnea, remote left foot Charcot collapse. 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 Her case in complicated with her rocker bottom foot deformity, impaired vascular status, and correction diabetes status. Over the past day, she has had progressive worsening of pain and now has redness and increased swelling to the foot. Her glucose levels at home were in the high 400's. She is not able to bear weight. She was seen as an emergent add-on in clinic yesterday in which clinical exam reveals new ulcer to the foot also probes deep with purulence. There was no odor noted however the area around the ulcer probes deep to the plantar medial arch. Her vascular status is grossly intact. It is noted she was scheduled for outpatient vascular surgery procedure with Dr. Pang today which will be rescheduled. Preoperative radiographs do not demonstrate soft tissue emphysema. foreign body, further charcot collapse or osseous destruction, or foreign body. MRI was also negative for osteomyelitis. Deep cultures were obtained in clinic and blood cultures obtained upon hospital admission. She had a low grade fever at time of admission, confusion, no leukocytosis, elevated esr and crp. The preoperative indications, benefits, risk, complications and anticipated healing time and management were discussed. She understands risk and complications may include but are not limited to the following: pain, swelling, scarring, need for further surgery, continued infection and delayed healing, loss of limb, function, life, blood clot, allergic reaction. This is medically necessary for limb and life salvage. A staged procedure such as a serial debridement or amputation will be considered pending her treatment response. She also understands she has entered a health care facility during covid 19 pand emic and there is an inherent risk. The benefits out way the risks at this time and her surgery is medically necessary in an urgent manner. She also understands she will be screened for covid 19 and all safety precautions to prevent viral spread are being taken at [facility] to lower the risk. The informed surgical consent and limb were signed. I answered all of her questions. Procedure in detail: The patient was taken to the operating room via cart and placed on the operating table in the supine position. Final verification of the patient, surgery, and limb designation was performed via the time out procedure. MAC anesthesia was initiated by the anesthesia team. I administered the preoperative local anesthetic as described proximal to the infected area as noted. A well-padded pneumatic left mid leg tourniquet was placed. The left lower extremity was prepped and draped in the usual aseptic manner. Surgery began the following: Attention was first directed to the plantar ulcer of the left foot that measured approximately 2 cm x 1.3 cm x 1.3 cm. A [place] elevator was used to identify the involved infected planes which probed to the plantar medial arch. 15 blade scal pel and hemostat was used to dissect out these planes in which about 8 cc of purulence was expressed coming mainly from the plantar arch along the flexor digitorum longus tendon sheath and overlying soft tissue. The flexor digitorum longus sheath was entered and no additional purulence was expressed from deep in this anatomic structure. Her Charcot midfoot was also stressed and there was no new laxity calor or crepitus noted in this area. Copious irrigation was performed and Versajet debridement was also performed on setting 10 in which the post debridement measurement including the incision and drainage measured approximately 4 cm x 5 cm x 3.2 cm with additional proximal medial probing 6.5 cm along this fascia plane that was decompressed. This debridement and irrigation was performed in an excisional manner to excise devitalized subcutaneous and muscle tissue, fibrous tissue, biofilm, and slough. Post irrigation cultures were sent and the results are pending. Pressure and minimal electrocauterization was performed to control hemostasis. Hemostasis was successfully controlled. Gel foam was applied also. Deep packing including Betadine soaked gauze was applied to this deep space. Additional 4x4 gauze, abdominal pads, Kerlix, and Arjun wrap were applied in a compressive manner. After procedure: The patient tolerated the procedure and anesthesia well. She was transported to the PACU with vital signs stable and vascular status intact to the left lower extremity. She will be transferred to the progressive care unit floor for continued IV antibiotics and medical management. Blood and wound cultures are pending. She was advised to maintain a strict nonweightbearing status to the left foot. Ice and elevate for pain and inflammation management was advised. She also has IV morphine ordered for pain control. She was started on IV vancomycin and Zosyn under the management of infectious disease physician. I will continue to follow her closely in house. Therapy will also work with her while in house and she may need to go to a care home facility. Medical management per hospitalist is appreciated. Vascular surgery consult was also placed to follow up on her initial intervention plans. All orders were entered electronically. Ivanna Magana DPM, [facility] Grafts/Implants Used: none Complications none Admit VTE Documentation VTE Present on Admission: No VTE Mechan Device Prophylaxis: SCD's VTE Pharm Prophylaxis ordered?: Yes
[2020-09-20] MEDS: 0.9% Normal Saline 1,000 ML 75 ML IV (15:23)
[2020-09-20] MEDS: tiZANidine HCl 2 MG Tablet 4 MG PO (15:55)
[2020-09-20] MEDS: Aspirin E.C. 81 MG Tablet PO (16:30)
[2020-09-20] MEDS: amLODIPine 5 MG Tablet PO (16:30)
[2020-09-20] MEDS: Pantoprazole Sodium 20 MG Tablet PO (16:31)
[2020-09-20] MEDS: Senna/Docusate Sodium 1 Tablet PO ×2 (16:31→21:58)
[2020-09-20] MEDS: Allopurinol 100 MG Tablet PO (16:34)
[2020-09-20] MEDS: Clopidogrel Bisulfate 75 MG Tablet PO (16:34)
[2020-09-20] MEDS: Multivitamins,Ther W-Minerals Tablet 1 TABLET PO (16:47)
[2020-09-20] MEDS: Juven (unflavored) Packet 1 PACKET PO (16:47)
[2020-09-20] MEDS: Insulin Lispro 100 UNIT/ML INSULN.PEN SC (16:47)
[2020-09-20 17:10] LABS: Bedside Glucose 164 mg/dL (70-110)
[2020-09-20 19:35] LABS: M R Staph aureus DNA By PCR Negative (Negative); Staph aureus DNA By PCR NEGATIVE (Negative)
[2020-09-20 19:36] LABS: Probe Check PASS; Specimen Processing Control PASS
[2020-09-20] MEDS: 0.9% Saline Lock 10 ML Syringe IV (20:23)
[2020-09-20] MEDS: Creon 24,000 unit DR Capsule 1 CAP PO (21:54)
[2020-09-20] MEDS: Carvedilol 25 MG Tablet PO (21:55)
[2020-09-20] MEDS: Pravastatin 40 MG Tablet PO (21:55)
[2020-09-20] MEDS: MELATONIN 3 MG TABLET 6 MG PO (21:55)
[2020-09-20] MEDS: Isosorbide Mononitrate 60 MG Tablet 120 MG PO (21:56)
[2020-09-20] MEDS: Calcium (Elemental) 500 MG Tablet PO (21:56)
[2020-09-20] MEDS: Levothyroxine 75 MCG Tablet PO (21:58)
[2020-09-20] MEDS: Insulin Lispro 100 UNIT/ML INSULN.PEN 6 UNIT SC (21:58)
[2020-09-20 22:15] LABS: Bedside Glucose 301 mg/dL (70-110)
--- NOTE | 2020-09-20 22:16 | EKG12_ITS ---
Test Reason : CP Blood Pressure : / mmHG Vent. Rate : 101 BPM Atrial Rate : 101 BPM P-R Int : 184 ms QRS Dur : 096 ms QT Int : 348 ms P-R-T Axes : 051 -30 091 degrees QTc Int : 451 ms Sinus tachycardia with Premature atrial complexes Left axis deviation Nonspecific ST abnormality Abnormal ECG Confirmed by ALEJANDRO ANAYA, RODRIGUE ([id number]), material expeditor CAMERON CALLES ([id number]) on 09/22/2020 9:29:50 AM Referred By: PARTH Confirmed By:RODRIGUE ALLEN MD
[2020-09-21] VITALS (19 sets, daily range): BP systolic 110–143; BP diastolic 41–81; PULSE 65–77; RESP 16–18; TEMP 36.6–37.2; O2SAT 92–97
[2020-09-21] MEDS: Insulin Lispro 100 UNIT/ML INSULN.PEN SC (00:19)
[2020-09-21] MEDS: tiZANidine HCl 2 MG Tablet 4 MG PO ×2 (00:19→22:08)
[2020-09-21 00:21] LABS: Bedside Glucose 225 mg/dL (70-110)
--- NOTE | 2020-09-21 00:44 | NURSING ---
complete bed change for diaphoresis-no longer has fever. pt reports no longer having chest pain. muscle relaxer given for generalized pain but pt states overall she is feeling much better. aware of now being NPO for stress tomorrow. troponin remains evelated.
--- NOTE | 2020-09-21 03:03 | PCM.PN.BLA ---
Progress Note Patient with chest pain. EKG is unchanged. Troponin is rising. Originally plan for stress test in a.m. Cancel stress test for now. Cardiology consult. Keep n.p.o. De-escalate dose of basal insulin.
[2020-09-21] MEDS: morphine (oral solution) 10MG/0.5ML Syringe 6 MG PO (03:57)
[2020-09-21] MEDS: Menthol/Lanolin/Calamine/Znox 113 GM Tube 1 APPLIC TOPICAL ×3 (05:37→20:40)
[2020-09-21 05:46] LABS: Bedside Glucose 165 mg/dL (70-110)
[2020-09-21] MEDS: 0.9% Normal Saline 1,000 ML 75 ML IV ×2 (06:28→15:14)
[2020-09-21] MEDS: HEPARIN/D5w 25,000 UNITS 25,000 UNITS/250 ML IV.SOLN. 12 UNITS IV (06:28)
[2020-09-21 06:36] LABS: Partial Thromboplast Time 34.3 Seconds (24.1-36.2)
--- NOTE | 2020-09-21 07:26 | NURSING ---
wound photo: left foot
[2020-09-21] MEDS: Acetaminophen 500 MG Tablet 1000 MG PO ×2 (07:42→15:57)
--- NOTE | 2020-09-21 07:43 | PN_ITS ---
Subjective Subjective: This 75 year old female was seen POD #1 left foot incision and drainage with debridement of devitalized subcutaneous and muscle tissue. She had moderate to severe pain to her foot overnight and chest pain. She had a fever overnight and not currently. She denies chills, nausea, vomiting, shortness of breath or calf pain. Cardiology has been consulted. Objective Data Objective Data Vital Signs: Vital Signs Temp Pulse Resp BP Pulse Ox 97.9 F 71 16 123/48 H 95 09/21/20 05:32 09/21/20 06:51 09/21/20 05:32 09/21/20 05:32 09/21/20 05:32 Oxygen Flow Rate (L/min) 2 Oxygen Delivery Method Nasal Cannula Weight: 81.5 kg Body Mass Index (BMI) 29.9 Finger Stick Blood Glucose 193 Intake & Output: Intake and Output for Last 24 Hours 09/19/20 09/20/20 09/21/20 23:59 23:59 23:59 Intake Total 825 / 825 2002.5 / 2002.5 742.5 / 742.5 Output Total 300 / 300 Balance 825 / 825 1702.5 / 1702.5 742.5 / 742.5 Lab / Micro Data Result Diagrams: 09/20/20 07:05 09/20/20 07:05 Labs: Laboratory Results - last 24 hr 09/20/20 09/20/20 09/20/20 07:05 07:05 07:05 WBC 8.7 RBC 3.22 L Hgb 9.7 L Hct 30.1 L MCV 93.5 MCH 30.1 MCHC 32.2 RDW Std Deviation 48.7 H RDW Coeff of Marco 14.1 Plt Count 172 MPV 9.6 Immature Gran % (Auto) 0.700 Neut % (Auto) 74.0 H Lymph % (Auto) 13.8 L Lassen % (Auto) 10.6 H Eos % (Auto) 0.7 Baso % (Auto) 0.2 Absolute Neuts (auto) 6.4 Absolute Lymphs (auto) 1.20 Nucleated RBC % 0 APTT Sodium 136 Potassium 4.8 Chloride 109 H Carbon Dioxide 19.0 L Anion Gap 8 BUN 35 H Creatinine 1.29 H Estim Creat Clear Calc 33.54 Est GFR (MDRD) Af Amer 52 L Est GFR (MDRD) Non-Af 43 L BUN/Creatinine Ratio 27.1 H Glucose 158 H Hemoglobin A1c 7.1 H Calcium 8.0 L Troponin I TSH 0.34 L S.aureus Protein A PCR MRSA (PCR) POC Glucose 09/20/20 09/20/20 09/20/20 10:53 14:39 16:42 WBC RBC Hgb Hct MCV MCH MCHC RDW Std Deviation RDW Coeff of Marco Plt Count MPV Immature Gran % (Auto) Neut % (Auto) Lymph % (Auto) Lassen % (Auto) Eos % (Auto) Baso % (Auto) Absolute Neuts (auto) Absolute Lymphs (auto) Nucleated RBC % APTT Sodium Potassium Chloride Carbon Dioxide Anion Gap BUN Creatinine Estim Creat Clear Calc Est GFR (MDRD) Af Amer Est GFR (MDRD) Non-Af BUN/Creatinine Ratio Glucose Hemoglobin A1c Calcium Troponin I TSH S.aureus Protein A PCR NEGATIVE MRSA (PCR) Negative POC Glucose 156 H 164 H 09/20/20 09/20/20 09/21/20 21:52 22:48 00:01 WBC RBC Hgb Hct MCV MCH MCHC RDW Std Deviation RDW Coeff of Marco Plt Count MPV Immature Gran % (Auto) Neut % (Auto) Lymph % (Auto) Lassen % (Auto) Eos % (Auto) Baso % (Auto) Absolute Neuts (auto) Absolute Lymphs (auto) Nucleated RBC % APTT Sodium Potassium Chloride Carbon Dioxide Anion Gap BUN Creatinine Estim Creat Clear Calc Est GFR (MDRD) Af Amer Est GFR (MDRD) Non-Af BUN/Creatinine Ratio Glucose Hemoglobin A1c Calcium Troponin I 0.391 H TSH S.aureus Protein A PCR MRSA (PCR) POC Glucose 301 H 225 H 09/21/20 09/21/20 09/21/20 01:35 04:36 05:37 WBC RBC Hgb Hct MCV MCH MCHC RDW Std Deviation RDW Coeff of Marco Plt Count MPV Immature Gran % (Auto) Neut % (Auto) Lymph % (Auto) Lassen % (Auto) Eos % (Auto) Baso % (Auto) Absolute Neuts (auto) Absolute Lymphs (auto) Nucleated RBC % APTT Sodium Potassium Chloride Carbon Dioxide Anion Gap BUN Creatinine Estim Creat Clear Calc Est GFR (MDRD) Af Amer Est GFR (MDRD) Non-Af BUN/Creatinine Ratio Glucose Hemoglobin A1c Calcium Troponin I 0.874 H* 3.920 H* TSH S.aureus Protein A PCR MRSA (PCR) POC Glucose 165 H 09/21/20 06:20 WBC RBC Hgb Hct MCV MCH MCHC RDW Std Deviation RDW Coeff of Marco Plt Count MPV Immature Gran % (Auto) Neut % (Auto) Lymph % (Auto) Lassen % (Auto) Eos % (Auto) Baso % (Auto) Absolute Neuts (auto) Absolute Lymphs (auto) Nucleated RBC % APTT 34.3 Sodium Potassium Chloride Carbon Dioxide Anion Gap BUN Creatinine Estim Creat Clear Calc Est GFR (MDRD) Af Amer Est GFR (MDRD) Non-Af BUN/Creatinine Ratio Glucose Hemoglobin A1c Calcium Troponin I TSH S.aureus Protein A PCR MRSA (PCR) POC Glucose Micro: Microbiology 09/20/20 14:39 Tissue - Left Foot Gram Stain - Final 09/19/20 20:15 Tissue Ulcer - Tissue Gram Stain - Final 09/19/20 20:15 Tissue Ulcer - Tissue Wound Culture - Preliminary Streptococcus group B 09/19/20 17:45 Blood Culture (Wb) - Anticubital Left - Final Streptococcus agalactiae (B) 09/19/20 17:45 Blood Culture (Wb) - Anticubital Left Blood Culture - Preliminary Streptococcus agalactiae (B) Radiography Diagnostic Testing: Radiology Impression Lower Extremity MRI 09/20/20 09:00 IMPRESSION: Cellulitis and ulcer of the plantar aspect of the foot but no abscess or osteomyelitis. Electronically Signed: Tonny Khalil MD at 11:18 EDT Tel , Service support , Rhythm Strip Rhythm Strip: Sinus Rhythm Rate: 78 Ectopy: None Physical Exam Const alert and oriented x3 General Appearance: cooperative Extremity Extremity Narrative: pain with wound and surgical site palpation and manipulation. no purulence noted with palpation to the leg or along the flexor tendon locations either. rocker bottom charcot chronic foot noted and there is no gross laxity with attempted manipulation Left Lower Extremity: foot and digits Positive for inspection ( I & D site has resolution of purulence and erythema. no odor or necrosis. hematogenous drainage on dressing only. 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 She is afebrile this morning and her vitals are stable. She did have a fever overnight. Her erythema has resolved and there is no active bleeding or purulence noted. She has been on IV antibiotics ( vanc/zosyn) overnight and her cultures that were obtained from surgery yesterday (pending still: aerobic, anaerobic, acid fast, fungal, mrsa pcr) and clinic the day prior are pending (Strep B). Blood cultures with positive bacterial growth also. Labs this AM pending. Infectious disease is on consult. Saline irrigation was performed bedside this morning. Betadine wet-to-dry deep wound packing was applied. She was initially scheduled for outpatient vascular intervention which was cancelled due to her current admission. Dr. Pang is on consult. To maintain non weightbearing status. Medical management, DVT prophylaxis, and chest pain work up per medicine team is noted. It is ok to resume anticoagulation medications from a surgical standpoint. I'll continue to follow her close while in house. Please call if questions. Ivanna Magana DPM, [facility] [phone]
[2020-09-21] MEDS: Carvedilol 25 MG Tablet PO ×2 (08:45→20:34)
[2020-09-21] MEDS: Aspirin E.C. 81 MG Tablet PO (08:45)
[2020-09-21] MEDS: amLODIPine 5 MG Tablet PO (08:45)
[2020-09-21] MEDS: Isosorbide Mononitrate 60 MG Tablet PO ×3 (08:45→20:37)
[2020-09-21] MEDS: Clopidogrel Bisulfate 75 MG Tablet PO (08:46)
--- NOTE | 2020-09-21 08:55 | NURSING ---
This RN gave verbal face to report with aquatic laborer RNKrish.
--- NOTE | 2020-09-21 09:03 | CON.PCM.CA_ITS ---
HPI Consult Data Date of Consult: 09/21/20 HPI Narrative HPI Narrative: SEBASTIÁN REYES, is a 75 F who presents [facility] Medical History (Updated 09/20/20 @ 00:[address] Bernadette Zayas, DO) Atherosclerotic heart disease of [place] coronary artery without angina pectoris Carotid artery disease Carpal tunnel syndrome Charcot's joint of left foot Essential hypertension GERD (gastroesophageal reflux disease) Gout History of blood clots History of blood transfusion History of CVA (cerebrovascular accident) Hyperlipidemia Hypothyroidism IBS (irritable bowel syndrome) Iron deficiency anemia Neuropathy Obesity Osteoporosis Peripheral arterial occlusive disease Peripheral vascular disease Type 2 diabetes mellitus with diabetic polyneuropathy Ulcer of abdomen wall with fat layer exposed Ulcer of left foot with fat layer exposed Vitamin D deficiency Home Medications pravastatin 40 mg PO QHS 03/10/17 [History Last Taken 09/18/20] amlodipine 5 mg tablet 5 mg PO DAILY tab 05/05/18 [History Last Taken 09/19/20] esomeprazole magnesium 20 mg PO DAILY 09/21/19 [History Last Taken 09/19/20] allopurinol 100 mg PO DAILY 03/17/20 [History Last Taken 09/19/20] calcium citrate 200 mg PO BID #0 03/17/20 [Rx Last Taken 09/19/20] aspirin 81 mg tablet,delayed release 81 mg PO DAILY 04/05/20 [History Last Taken 09/18/20] cbd 1 dose PO 4X/DAY PRN 04/05/20 [History Last Taken Unknown] yeejwd-ywabnpdk-pwfshaa 24,000-76,000-120,000 unit capsule,delayed rel 1 cap PO BID cap 04/05/20 [History Last Taken 09/19/20] carvedilol 25 mg PO BID 08/17/20 [History Last Taken 09/19/20] isosorbide mononitrate 60 mg PO DAILY 08/17/20 [History Last Taken 09/18/20] isosorbide mononitrate 120 mg PO DAILY 08/17/20 [History Last Taken 09/19/20] levothyroxine 75 mcg PO QHS 08/17/20 [History Last Taken 09/18/20] linaclotide 72 mcg PO DAILY 08/17/20 [History Last Taken 09/14/20] melatonin 6 mg PO QHS 08/17/20 [History Last Taken 09/18/20] metoclopramide HCl 10 mg PO Q8H PRN 08/17/20 [History Last Taken 09/19/20] vevgdixmmcea-kmbs-lhtcf acid 0.5 tablet PO BID 08/17/20 [History Last Taken 09/19/20] trazodone 100 mg PO QHS PRN 08/17/20 [History Last Taken 09/18/20] venlafaxine 100 mg PO BID 08/17/20 [History Last Taken 09/19/20] wheat dextrin 15 ml PO DAILY 08/17/20 [History Last Taken 09/19/20] insulin glargine 30 units SC BID 08/22/20 [History Last Taken 09/19/20] insulin lispro 8 unit SC BID 08/22/20 [History Last Taken 09/19/20] acetaminophen 1,000 mg PO Q8H PRN PRN #0 tablet 09/09/20 [Rx Last Taken 09/19/20] tizanidine 4 mg PO Q8H PRN PRN #20 tablet 09/09/20 [Rx Last Taken 09/19/20] clopidogrel 75 mg tablet 75 mg PO DAILY #90 tablet 09/16/20 [Rx Last Taken 09/19/20] mpwaq-owhi-RoTAJ-srvszu-zh-utx 1 packet PO BIDCM 09/19/20 [History Last Taken 09/19/20] celecoxib 200 mg PO DAILY 09/19/20 [History Last Taken 09/18/20] morphine 3 ml PO Q6H PRN PRN 09/19/20 [History Last Taken 09/19/20] nitroglycerin 0.4 mg SL TID PRN PRN 09/19/20 [History Last Taken Unknown] polyethylene glycol 3350 17 gm PO DAILY 09/19/20 [History Last Taken 09/19/20] sennosides-docusate sodium 1 tablet PO BID 09/19/20 [History Last Taken 09/19/20] Allergy/AdvReac Type Severity Reaction Status Date / Time doxycycline Allergy Severe all over Verified 08/17/20 15:19 body hives and itching atorvastatin calcium Allergy Unknown Verified 08/17/20 15:19 [From Lipitor] bupropion HCl Allergy Unknown Verified 08/17/20 15:19 [From Wellbutrin] mannitol [From Reclast] Allergy joint Verified 08/17/20 15:19 pain, unable to breathe, unable to walk propoxyphene napsylate Allergy Unknown Verified 08/17/20 15:19 [From Darvocet-N 100] Quinolones Allergy Unknown Verified 08/17/20 15:19 Tetanus Vaccines and Toxoid Allergy Chest Verified 08/17/20 15:19 [Tetanus Vaccines & Toxoid] tightness tizanidine Allergy Unknown Verified 08/17/20 15:19 zoledronic acid Allergy joint Verified 08/17/20 15:19 [From Reclast] pain,unable to breathe, unaable to walk pravastatin AdvReac Severe Myalgias Verified 08/17/20 15:19 gemfibrozil AdvReac Intermediate Unknown Verified 08/17/20 15:19 NSAIDS (Non-Steroidal AdvReac Other Verified 08/17/20 15:19 Anti-Inflamma Family History Mother , age 75 Cancer CVA (cerebral vascular accident) CAD (coronary artery disease) Father CAD (coronary artery disease) History of coronary artery bypass graft Sister CAD (coronary artery disease) Multiple sclerosis Other Anxiety Bleeding disorder Depression Diabetes Heart disease High cholesterol Hypertension Surgical History History of coronary artery bypass graft History of excision of lesion History of gastric bypass History of gastric bypass History of left heart catheterization History of ventral hernia repair Hx of ventral hernia repair Stented coronary artery (12/03/18) Social History (Updated 06/10/20 @ 23:21 by Olga Villagran CORRUGATOR OPERATOR, CORRUGATOR OPERATOR-C) Smoking Status: Never smoker alcohol intake: never substance use type: does not use caffeine: Yes Type: coffee what type of physical activity do you participate in: none seatbelt use: sometimes do you feel safe at home: Yes additional social history: DOES NOT TAKE ASPIRIN DOES TAKE IBUPROFEN NEEDED Lab / Micro Data Result Diagrams: 09/20/20 07:05 09/20/20 07:05 Labs: Laboratory Results - last 24 hr 09/20/20 09/20/20 09/20/20 07:05 10:53 14:39 APTT Hemoglobin A1c 7.1 H Troponin I S.aureus Protein A PCR NEGATIVE MRSA (PCR) Negative POC Glucose 156 H 09/20/20 09/20/20 09/20/20 16:42 21:52 22:48 APTT Hemoglobin A1c Troponin I 0.391 H S.aureus Protein A PCR MRSA (PCR) POC Glucose 164 H 301 H 09/21/20 09/21/20 09/21/20 00:01 01:35 04:36 APTT Hemoglobin A1c Troponin I 0.874 H* 3.920 H* S.aureus Protein A PCR MRSA (PCR) POC Glucose 225 H 09/21/20 09/21/20 05:37 06:20 APTT 34.3 Hemoglobin A1c Troponin I S.aureus Protein A PCR MRSA (PCR) POC Glucose 165 H Micro: Microbiology 09/19/20 20:15 Gram Stain - Final Tissue Ulcer - Tissue Wound Culture - Final Streptococcus agalactiae (B) 09/20/20 14:39 Gram Stain - Final Tissue - Left Foot 09/19/20 17:45 - Final Blood Culture (Wb) - Anticubital Left Streptococcus agalactiae (B) Blood Culture - Preliminary Streptococcus agalactiae (B) Rhythm Strip Rhythm Strip: Sinus Rhythm Rate: 78 Ectopy: None Radiology Impression Lower Extremity MRI 09/20/20 09:00 IMPRESSION: Cellulitis and ulcer of the plantar aspect of the foot but no abscess or osteomyelitis. Electronically Signed: Tonny Khalil MD at 11:18 EDT Tel , Service support , 09/20/20 07:05: Hemoglobin A1c 7.1 H 09/20/20 22:48: Troponin I 0.391 H 09/21/20 01:35: Troponin I 0.874 H* 09/21/20 04:36: Troponin I 3.920 H* 09/21/20 06:20: APTT 34.3 Rhythm: EKG: ECHO: Stress Test: Cardiac Cath: PCI: CT Surgery: Holter monitor: EPS: PPM: CXR: Chest CT Scan:
--- NOTE | 2020-09-21 09:10 | CON.PCM.CA_ITS ---
Assessment & Plan Assessment/Plan (1) Non-ST elevation (NSTEMI) myocardial infarction: Status: Acute Code(s): I21.4 - Non-ST elevation (NSTEMI) myocardial infarction Plan: The patient has signs and symptoms and objective findings compatible with an acute non-ST segment elevation ID. At the present time is unclear whether this is a type I event versus a type II of breath brought on by supply demand mismatch from her underlying noncardiovascular related issues. She is being monitored. Her cardiac enzymes and ECGs have been noted. She is continuing medical therapy. She has been recommended for further evaluation with diagnostic cardiac catheterization. The procedure and risks were discussed with her. She was agreeable to this approach. (2) Coronary artery disease: Status: Chronic Code(s): I25.10 - Atherosclerotic heart disease of [place] coronary artery without angina pectoris Plan: The patient does have a history of underlying CAD. This is led to PCI and CABG. At the present time there are concerns of an acute non-ST segment elevation ID. The patient will continue evaluation and care as noted above. (3) Stented coronary artery: Status: Chronic Code(s): Z95.5 - Presence of coronary angioplasty implant and graft Plan: The patient has undergone previous PCI in the past to the left coronary artery system including the left circumflex coronary artery. At the present time there are concerns of an acute non-ST segment elevation ID. She will continue to be monitored. She will continue medical therapy. She is being referred for further evaluation with diagnostic cardiac catheterization to evaluate her coronary anatomy/graft anatomy for the need for additional catheter-based revascularization therapy. (4) History of coronary artery bypass graft: Status: Chronic Code(s): Z95.1 - Presence of aortocoronary bypass graft Plan: She does have a history of CABG. Based upon previous cardiac catheterization reports the DANIEL to the LAD was patent however the SVG to the diagonal branch with a Y graft to the OM branch was reported as chronically occluded. This can be reassessed, with respect to her DANIEL system, during cardiac catheterization. (5) Peripheral vascular disease: Status: Chronic Code(s): I73.9 - Peripheral vascular disease, unspecified Plan: She does have a history of peripheral vascular disease. The details are unknown at this time. She believes she needs reevaluation of this to assist with healing of her left foot lesion. (6) Hyperlipidemia: Status: Chronic Code(s): E78.5 - Hyperlipidemia, unspecified Plan: She will continue risk factor evaluation care. (7) Hypertension: Status: Chronic Code(s): I10 - Essential (primary) hypertension Plan: Her blood pressure be monitored with her medicines adjusted accordingly. (8) Diabetes mellitus type 2 in obese: Status: Chronic Code(s): E11.69 - Type 2 diabetes mellitus with other specified complication; E66.9 - Obesity, unspecified Plan: The patient will continue evaluation care per internal medicine. (9) Abscess of left foot: Status: Inactive Code(s): L02.612 - Cutaneous abscess of left foot Plan: The patient will continue evaluation care per internal medicine and podiatry. Addt'l Comments The patient's case was discussed and reviewed with the patient as well as the [facility] hospitalist team. This note was generated with [employer] dictation software. It may contain incorrect words, spelling, and punctuation that were not noted in checking the note before signing. HPI Consult Data Date of Consult: 09/21/20 HPI Narrative HPI Narrative: Sinus rhythm/sinus tachycardia with left axis deviation with nonspecific ST segment abnormality.SEBASTIÁN REYES, is a 75 white female who presents superimposed upon a history of underlying CAD, for acute non-ST segment elevation ID for evaluation previous PCI, previous CABG ([facility]: 09-09-2014: DANIEL to the LAD with SVG graft to the diagonal branch with Y graft from the SVG graft to the diagonal branch to the OM branch), superimposed upon peripheral vascular disease as well as hyperlipidemia, hypertension, diabetes mellitus, and an ongoing chronic left foot healing issue requiring surgical debridement. She presented to [facility] for concerns of her chronic left foot healing issue requiring surgical debridement by podiatry. During her hospitalization she complained of chest discomfort which she noted was a sore feeling which radiated to her left upper extremity as well as feeling short of breath and dyspneic and nauseated. She underwent evaluation by internal medicine which included troponin I levels which were indeterminant which now has subsequently turned positive. Her ECG demonstrated what appeared to be sinus tachycardia with left axis deviation with nonspecific ST segment ab normality. She was initially scheduled for further evaluation with a transthoracic echocardiogram and a pharmacologic stress nuclear imaging study, however, based upon her continued symptoms and her continued troponin I elevation she was referred for cardiovascular consultation for consideration for diagnostic cardiac catheterization. She has denied ongoing orthopnea or PND. She does not recall any ongoing palpitations. There is been no near syncope or syncope. She has undergone left foot surgical debridement by podiatry. Her left foot is currently in a surgical bandage and an Arjun wrap. [facility] Medical History (Updated 09/21/20 @ 10:[address] Master South MD) Atherosclerotic heart disease of [place] coronary artery without angina pectoris Carotid artery disease Carpal tunnel syndrome Charcot's joint of left foot Essential hypertension GERD (gastroesophageal reflux disease) Gout History of blood clots History of blood transfusion History of CVA (cerebrovascular accident) Hyperlipidemia Hypothyroidism IBS (irritable bowel syndrome) Iron deficiency anemia Neuropathy Obesity Osteoporosis Peripheral arterial occlusive disease Peripheral vascular disease Type 2 diabetes mellitus with diabetic polyneuropathy Ulcer of abdomen wall with fat layer exposed Ulcer of left foot with fat layer exposed Vitamin D deficiency Home Medications pravastatin 40 mg PO QHS 03/10/17 [History Last Taken 09/18/20] amlodipine 5 mg tablet 5 mg PO DAILY tab 05/05/18 [History Last Taken 09/19/20] esomeprazole magnesium 20 mg PO DAILY 09/21/19 [History Last Taken 09/19/20] allopurinol 100 mg PO DAILY 03/17/20 [History Last Taken 09/19/20] calcium citrate 200 mg PO BID #0 03/17/20 [Rx Last Taken 09/19/20] aspirin 81 mg tablet,delayed release 81 mg PO DAILY 04/05/20 [History Last Taken 09/18/20] cbd 1 dose PO 4X/DAY PRN 04/05/20 [History Last Taken Unknown] lwztav-hwghqisr-sefwhhy 24,000-76,000-120,000 unit capsule,delayed rel 1 cap PO BID cap 04/05/20 [History Last Taken 09/19/20] carvedilol 25 mg PO BID 08/17/20 [History Last Taken 09/19/20] isosorbide mononitrate 60 mg PO DAILY 08/17/20 [History Last Taken 09/18/20] isosorbide mononitrate 120 mg PO DAILY 08/17/20 [History Last Taken 09/19/20] levothyroxine 75 mcg PO QHS 08/17/20 [History Last Taken 09/18/20] linaclotide 72 mcg PO DAILY 08/17/20 [History Last Taken 09/14/20] melatonin 6 mg PO QHS 08/17/20 [History Last Taken 09/18/20] metoclopramide HCl 10 mg PO Q8H PRN 08/17/20 [History Last Taken 09/19/20] rkfvgleyvrxn-yucj-utfco acid 0.5 tablet PO BID 08/17/20 [History Last Taken 09/19/20] trazodone 100 mg PO QHS PRN 08/17/20 [History Last Taken 09/18/20] venlafaxine 100 mg PO BID 08/17/20 [History Last Taken 09/19/20] wheat dextrin 15 ml PO DAILY 08/17/20 [History Last Taken 09/19/20] insulin glargine 30 units SC BID 08/22/20 [History Last Taken 09/19/20] insulin lispro 8 unit SC BID 08/22/20 [History Last Taken 09/19/20] acetaminophen 1,000 mg PO Q8H PRN PRN #0 tablet 09/09/20 [Rx Last Taken 09/19/20] tizanidine 4 mg PO Q8H PRN PRN #20 tablet 09/09/20 [Rx Last Taken 09/19/20] clopidogrel 75 mg tablet 75 mg PO DAILY #90 tablet 09/16/20 [Rx Last Taken 09/19/20] habax-qhof-QyURL-zmyhmy-ne-wae 1 packet PO BIDCM 09/19/20 [History Last Taken 09/19/20] celecoxib 200 mg PO DAILY 09/19/20 [History Last Taken 09/18/20] morphine 3 ml PO Q6H PRN PRN 09/19/20 [History Last Taken 09/19/20] nitroglycerin 0.4 mg SL TID PRN PRN 09/19/20 [History Last Taken Unknown] polyethylene glycol 3350 17 gm PO DAILY 09/19/20 [History Last Taken 09/19/20] sennosides-docusate sodium 1 tablet PO BID 09/19/20 [History Last Taken 0 09/19/20] Allergy/AdvReac Type Severity Reaction Status Date / Time doxycycline Allergy Severe all over Verified 08/17/20 15:19 body hives and itching atorvastatin calcium Allergy Unknown Verified 08/17/20 15:19 [From Lipitor] bupropion HCl Allergy Unknown Verified 08/17/20 15:19 [From Wellbutrin] mannitol [From Reclast] Allergy joint Verified 08/17/20 15:19 pain, unable to breathe, unable to walk propoxyphene napsylate Allergy Unknown Verified 08/17/20 15:19 [From Darvocet-N 100] Quinolones Allergy Unknown Verified 08/17/20 15:19 Tetanus Vaccines and Toxoid Allergy Chest Verified 08/17/20 15:19 [Tetanus Vaccines & Toxoid] tightness tizanidine Allergy Unknown Verified 08/17/20 15:19 zoledronic acid Allergy joint Verified 08/17/20 15:19 [From Reclast] pain,unable to breathe, unaable to walk pravastatin AdvReac Severe Myalgias Verified 08/17/20 15:19 gemfibrozil AdvReac Intermediate Unknown Verified 08/17/20 15:19 NSAIDS (Non-Steroidal AdvReac Other Verified 08/17/20 15:19 Anti-Inflamma Family History Mother , age 75 Cancer CVA (cerebral vascular accident) CAD (coronary artery disease) Father CAD (coronary artery disease) History of coronary artery bypass graft Sister CAD (coronary artery disease) Multiple sclerosis Other Anxiety Bleeding disorder Depression Diabetes Heart disease High cholesterol Hypertension Surgical History History of coronary artery bypass graft History of excision of lesion History of gastric bypass History of gastric bypass History of left heart catheterization History of ventral hernia repair Hx of ventral hernia repair Stented coronary artery (12/03/18) Social History (Updated 06/10/20 @ 23:21 by Olga Villagran NP, [employer]) Smoking Status: Never smoker alcohol intake: never substance use type: does not use caffeine: Yes Type: coffee what type of physical activity do you participate in: none seatbelt use: sometimes do you feel safe at home: Yes additional social history: DOES NOT TAKE ASPIRIN DOES TAKE IBUPROFEN NEEDED ROS ENT HEENT: Reports systems reviewed and no addt'l complaints, except as documented Cardiovascular Cardiovascular: Reports chest pain at rest, dyspnea at rest and leg ulcers Respiratory/Chest Respiratory/Chest: Reports dyspnea Gastrointestinal Gastrointestinal: Reports nausea Integumentary Integumentary: Reports non-healing lesions Physical Exam Narrative The patient is awake and alert and in no acute distress. Const alert and oriented x3 Orientation / Consciousness: awake HEENT normocephalic and head/scalp atraumatic Eyes PERRL and EOMs intact bilaterally Neck full ROM and supple Chest inspection of chest normal Chest: midline sternotomy incision Resp normal respiratory effort and clear to auscultation bilaterally Cardio regular rate, regular rhythm, S1 normal heart sound and S2 normal heart sound Peripheral Pulses: brachial pulses present, radial pulses present and femoral pulses present GI normal to inspection, nondistended, normoactive bowel sounds Extremity Extremity Narrative: Left foot: Surgical wrap with Arjun dressing Peripheral Pulses: Yes brachial pulses present, radial pulses present and femoral pulses present Neuro oriented x3 and moves all extremities Psych mental status grossly normal Lab / Micro Data Result Diagrams: 09/20/20 07:05 09/20/20 07:05 Labs: Laboratory Results - last 24 hr 09/20/20 09/20/20 09/20/20 07:05 10:53 14:39 APTT Hemoglobin A1c 7.1 H Troponin I S.aureus Protein A PCR NEGATIVE MRSA (PCR) Negative POC Glucose 156 H 09/20/20 09/20/20 09/20/20 16:42 21:52 22:48 APTT Hemoglobin A1c Troponin I 0.391 H S.aureus Protein A PCR MRSA (PCR) POC Glucose 164 H 301 H 09/21/20 09/21/20 09/21/20 00:01 01:35 04:36 APTT Hemoglobin A1c Troponin I 0.874 H* 3.920 H* S.aureus Protein A PCR MRSA (PCR) POC Glucose 225 H 09/21/20 09/21/20 05:37 06:20 APTT 34.3 Hemoglobin A1c Troponin I S.aureus Protein A PCR MRSA (PCR) POC Glucose 165 H Micro: Microbiology 09/19/20 20:15 Gram Stain - Final Tissue Ulcer - Tissue Wound Culture - Final Streptococcus agalactiae (B) 09/20/20 14:39 Gram Stain - Final Tissue - Left Foot 09/19/20 17:45 - Final Blood Culture (Wb) - Anticubital Left Streptococcus agalactiae (B) Blood Culture - Preliminary Streptococcus agalactiae (B) Rhythm Strip Rhythm Strip: Sinus Rhythm Rate: 78 Ectopy: None Radiology Impression Lower Extremity MRI 09/20/20 09:00 IMPRESSION: Cellulitis and ulcer of the plantar aspect of the foot but no abscess or osteomyelitis. Electronically Signed: Tonny Khalil MD at 11:18 EDT Tel , Service support , Cardiology Labs/Tests Cardiology Labs/Tests: 09/20/20 07:05: Hemoglobin A1c 7.1 H 09/20/20 22:48: Troponin I 0.391 H 09/21/20 01:35: Troponin I 0.874 H* 09/21/20 04:36: Troponin I 3.920 H* 09/21/20 06:20: APTT 34.3 Rhythm: Sinus rhythm EKG: As noted above Cardiac Cath: 12-03-2018 CONCLUSIONS Normal Left Ventricular systolic function Perserved Left Ventricular systolic function with normal EDP LVEF: by LV gram 75 % Triple vessel CAD of the LAD, LCX, RCA Successful PTCA/YASIR mid LCX with a 2.5 x 20 Promus Synergy stent; 85%-->0-%, no dissection. RECOMMENDATIONS Referred for immediate PCI Medical management of RCA unless or until pt has recurrent symptoms after PCI of LCX. Highly recommend quitting all tobacco products Follow up with primary c.o.d. clerk Risk factor modification ASA Indefinitley Plavix for at least 12 months Routine post interventional care Refer for Outpatient Cardiac Rehab Manual sheath removal per protocol Follow up with Dr. Hatfield Consider FFR eval of RCA in 3 weeks if pt continues to struggle with CP and/or Dyspnea on exertion despite maximal medical therapy. Successfull Mynx Control closure of RFA. Pt had identical chest pain/anginal symptoms during balloon and stent deployment. PCI: 12-24-2018 CONCLUSIONS FFR of RCA=0.97, negative, left for medical management. RECOMMENDATIONS Highly recommend quitting all tobacco products Follow up with primary c.o.d. clerk Risk factor modification ASA Indefinitley Plavix for at least 12 months Routine post interventional care Refer for Outpatient Cardiac Rehab Manual sheath removal per protocol Follow up with Dr. Hatfield Successful Mynx Control closure of RFA. CT Surgery: 09-09-2014: [facility]: DANIEL to LAD SVG to diagonal branch with Y graft SVG to the OM CXR: Preliminary evaluation: Post open heart surgery changes: No acute cardiopulmonary disease process: Please see official report Procedure Criteria Procedure Type: Elective COVID Risk Discussion: The surgeon/proceduralist and patient have discussed in detail the risk of exposure to and/or potential harm posed by the COVID-19 virus with having a surgery/procedure at this time versus the risk of delaying the surgery/procedure. It is not possible to know either the risk of delaying the surgery or procedure or chance of getting an infection with perfect accuracy, but a joint decision was made between the patient and the surgeon/proceduralist to proceed at this time with the scheduled surgery/procedure as indicated on the consent form.
--- NOTE | 2020-09-21 11:30 | EKG12_ITS ---
Test Reason : AM EKG Blood Pressure : / mmHG Vent. Rate : 074 BPM Atrial Rate : 074 BPM P-R Int : 176 ms QRS Dur : 098 ms QT Int : 414 ms P-R-T Axes : 057 -26 102 degrees QTc Int : 459 ms Normal sinus rhythm Nonspecific ST and T wave abnormality Abnormal ECG Confirmed by ALEJANDRO ANAYA, RODRIGUE ([id number]), brands editor CAMERON CALLES ([id number]) on 09/27/2020 11:19:56 AM Referred By: PARTH Confirmed By:RODRIGUE ALLEN MD
--- NOTE | 2020-09-21 11:38 | PCI.CARDCATH ---
PCI Cardiac Cath Report PCI Report: Procedure performed; 1. Successful PCI of 90% in-stent restenosis of proximal?mid left left circumflex with predilatation and placement of drug-eluting stent/Orsiro 3 X 35 mm postdilated with 3.25 x 20 mm NC balloon, with reduction of stenosis from 90% to 0% and maintaining PETER-3 flow 2. Successful PTCA of the proximal OM1 using 2.5 x 50 mm balloon. Preprocedure diagnosis; 75-year-old female with extensive cardiac history and multiple medical comorbidities with diabetes mellitus, and healed left foot wound, hypertension, hyperlipidemia and left Charcot foot Patient admitted from the stenotypist office for the unhealed left foot and has evaluation by cardiology Dr. South patient has CAD with non-ST elevation PA with elevated high sensitive troponin of 4.0 Cardiac history patient had a history of CABG in August 2014 with DANIEL to LAD and Y graft to the D1 and OM2 obtuse marginal Subsequently patient underwent cardiac catheterization by the saddle and side wire stitcher Dr. Deluca,11/2009, patient underwent PCI and stent of the left circumflex and the distal left circumflex Also FFR of RCA 0.97 normal. On this admission patient underwent cardiac catheterization, DANIEL to LAD is patent and has high-grade in-stent restenosis of the left circumflex 8 RCA diffuse proximal to mid similar angiographic from previous LV function is preserved. Interventional equipment and plan; We upgrade the sheath in the right common femoral artery 6 Macedonian sheath, then will proceed with the 3.5 XB guide catheter engaged the left proceed with the guidewire 0.014 run-through 180 cm across the lesion in the left circumflex in-stent restenosis Then we proceed with a 2.5 x 15 mm balloon dilate the lesion. In-stent stenosis of the OM 2 There was a high-grade in-stent stenosis of sidebranch OM1 of 99%. Reduction of the stenosis to the sidebranch to 30%. We used BMW wire crossed the lesion of the ostial OM1 predilated using 2.5 x 15 mm. Patient already on Plavix given additional 300 mg of Plavix. Anticoagulation used in the Vacuum Tank Tender is heparin left ACT 235 given additional 2000U heparin. Then will proceed with the balloon dilatation we used serial balloon dilate the in-stent restenosis of the left circumflex and will proceed with placement of a long stent to treat the in-stent stenosis of the left circumflex we used 3 x 35 mm Orsiro stent, postdilated using 3.25 mm NC balloon and achieved an excellent result with PETER-3 flow. With no complication in the Vacuum Tank Tender. Conclusion and recommendation; 1. Continue on dual antiplatelet therapy with Plavix and aspirin. 2. Hemostasis will be maintained with manual pressure to the right groin once ACT level less than 170 3. Cardiac care plan will be maintained with the primary grounds and nursery specialist /mari. Hamlet Mtz MD,FAC,[facility]
--- NOTE | 2020-09-21 11:41 | CON.PCM_ITS ---
Assessment & Plan Assessment/Plan (1) Peripheral vascular disease: Status: Chronic Code(s): I73.9 - Peripheral vascular disease, unspecified Plan: Schedule yesterday to do a left leg angiogram. When she is recovered from her coronary stent and the recent foot surgery we will reschedule her for a left leg angiogram. We will do this as an outpatient HPI Consult Data Date of Consult: 09/21/20 HPI Narrative HPI Narrative: SEBASTIÁN REYES, is a 75 F who presents left worsening foot infection. She had an bump in her troponins and just underwent a heart cath and had reintervention done. She was scheduled yesterday for an angiogram with intervention that we will need to get rescheduled. Vascular surgery consulted for this. [facility] Medical History Atherosclerotic heart disease of [place] coronary artery without angina pectoris Carotid artery disease Carpal tunnel syndrome Charcot's joint of left foot Essential hypertension GERD (gastroesophageal reflux disease) Gout History of blood clots History of blood transfusion History of CVA (cerebrovascular accident) Hyperlipidemia Hypothyroidism IBS (irritable bowel syndrome) Iron deficiency anemia Neuropathy Obesity Osteoporosis Peripheral arterial occlusive disease Peripheral vascular disease Type 2 diabetes mellitus with diabetic polyneuropathy Ulcer of abdomen wall with fat layer exposed Ulcer of left foot with fat layer exposed Vitamin D deficiency Home Medications pravastatin 40 mg PO QHS 03/10/17 [History Last Taken 09/18/20] amlodipine 5 mg tablet 5 mg PO DAILY tab 05/05/18 [History Last Taken 09/19/20] esomeprazole magnesium 20 mg PO DAILY 09/21/19 [History Last Taken 09/19/20] allopurinol 100 mg PO DAILY 03/17/20 [History Last Taken 09/19/20] calcium citrate 200 mg PO BID #0 03/17/20 [Rx Last Taken 09/19/20] aspirin 81 mg tablet,delayed release 81 mg PO DAILY 04/05/20 [History Last Taken 09/18/20] cbd 1 dose PO 4X/DAY PRN 04/05/20 [History Last Taken Unknown] huaxii-wyahudaw-bvbxivw 24,000-76,000-120,000 unit capsule,delayed rel 1 cap PO BID cap 04/05/20 [History Last Taken 09/19/20] carvedilol 25 mg PO BID 08/17/20 [History Last Taken 09/19/20] isosorbide mononitrate 60 mg PO DAILY 08/17/20 [History Last Taken 09/18/20] isosorbide mononitrate 120 mg PO DAILY 08/17/20 [History Last Taken 09/19/20] levothyroxine 75 mcg PO QHS 08/17/20 [History Last Taken 09/18/20] linaclotide 72 mcg PO DAILY 08/17/20 [History Last Taken 09/14/20] melatonin 6 mg PO QHS 08/17/20 [History Last Taken 09/18/20] metoclopramide HCl 10 mg PO Q8H PRN 08/17/20 [History Last Taken 09/19/20] uszckpatupij-nqop-vezph acid 0.5 tablet PO BID 08/17/20 [History Last Taken 09/19/20] trazodone 100 mg PO QHS PRN 08/17/20 [History Last Taken 09/18/20] venlafaxine 100 mg PO BID 08/17/20 [History Last Taken 09/19/20] wheat dextrin 15 ml PO DAILY 08/17/20 [History Last Taken 09/19/20] insulin glargine 30 units SC BID 08/22/20 [History Last Taken 09/19/20] insulin lispro 8 unit SC BID 08/22/20 [History Last Taken 09/19/20] acetaminophen 1,000 mg PO Q8H PRN PRN #0 tablet 09/09/20 [Rx Last Taken 09/19/20] tizanidine 4 mg PO Q8H PRN PRN #20 tablet 09/09/20 [Rx Last Taken 09/19/20] clopidogrel 75 mg tablet 75 mg PO DAILY #90 tablet 09/16/20 [Rx Last Taken 09/19/20] locsa-igmb-DcOVT-njsxku-gn-lhy 1 packet PO BIDCM 09/19/20 [History Last Taken 09/19/20] celecoxib 200 mg PO DAILY 09/19/20 [History Last Taken 09/18/20] morphine 3 ml PO Q6H PRN PRN 09/19/20 [History Last Taken 09/19/20] nitroglycerin 0.4 mg SL TID PRN PRN 09/19/20 [History Last Taken Unknown] polyethylene glycol 3350 17 gm PO DAILY 09/19/20 [History Last Taken 09/19/20] sennosides-docusate sodium 1 tablet PO BID 09/19/20 [History Last Taken 09/19/20] Allergy/AdvReac Type Severity Reaction Status Date / Time doxycycline Allergy Severe all over Verified 08/17/20 15:19 body hives and itching atorvastatin calcium Allergy Unknown Verified 08/17/20 15:19 [From Lipitor] bupropion HCl Allergy Unknown Verified 08/17/20 15:19 [From Wellbutrin] mannitol [From Reclast] Allergy joint Verified 08/17/20 15:19 pain, unable to breathe, unable to walk propoxyphene napsylate Allergy Unknown Verified 08/17/20 15:19 [From Darvocet-N 100] Quinolones Allergy Unknown Verified 08/17/20 15:19 Tetanus Vaccines and Toxoid Allergy Chest Verified 08/17/20 15:19 [Tetanus Vaccines & Toxoid] tightness tizanidine Allergy Unknown Verified 08/17/20 15:19 zoledronic acid Allergy joint Verified 08/17/20 15:19 [From Reclast] pain,unable to breathe, unaable to walk pravastatin AdvReac Severe Myalgias Verified 08/17/20 15:19 gemfibrozil AdvReac Intermediate Unknown Verified 08/17/20 15:19 NSAIDS (Non-Steroidal AdvReac Other Verified 08/17/20 15:19 Anti-Inflamma Family History Mother , age 75 Cancer CVA (cerebral vascular accident) CAD (coronary artery disease) Father CAD (coronary artery disease) History of coronary artery bypass graft Sister CAD (coronary artery disease) Multiple sclerosis Other Anxiety Bleeding disorder Depression Diabetes Heart disease High cholesterol Hypertension Surgical History History of coronary artery bypass graft History of excision of lesion History of gastric bypass History of gastric bypass History of left heart catheterization History of ventral hernia repair Hx of ventral hernia repair Stented coronary artery (12/03/18) Social History Smoking Status: Never smoker alcohol intake: never substance use type: does not use caffeine: Yes Type: coffee what type of physical activity do you participate in: none seatbelt use: sometimes do you feel safe at home: Yes additional social history: DOES NOT TAKE ASPIRIN DOES TAKE IBUPROFEN NEEDED ROS Constitutional Constitutional: Reports systems reviewed and no addt'l complaints, except as documented Eyes Eyes: Reports none ENT HEENT: Reports none Cardiovascular Cardiovascular: Reports chest pain Respiratory/Chest Respiratory/Chest: Reports none Genitourinary Genitourinary: Reports none Musculoskeletal Musculoskeletal: Reports other Details: Left foot wound Physical Exam Const alert and oriented x3 General Appearance: cooperative Orientation / Consciousness: awake Exam Limitations: no limitations HEENT normocephalic Head and Scalp: atraumatic Face and Sinus: face symmetric Nose: nares normal External Ear: external ears normal External Auditory Canal: EAC's normal Mouth: oral and palatal mucosa normal Eyes PERRL and EOMs intact bilaterally Neck full ROM Lymph Lymphatic: no lymphadenopathy noted Chest palpation of chest normal Resp normal air movement Cardio regular rate GI soft to palpation Extremity full ROM Left Lower Extremity: lower leg special tests (Left foot in a dressing) Neuro oriented x3 and moves all extremities Lab / Micro Data Result Diagrams: 09/20/20 07:05 09/20/20 07:05 Labs: Laboratory Results - last 24 hr 09/20/20 09/20/20 09/20/20 14:39 16:42 21:52 APTT Troponin I S.aureus Protein A PCR NEGATIVE MRSA (PCR) Negative POC Glucose 164 H 301 H 09/20/20 09/21/20 09/21/20 22:48 00:01 01:35 APTT Troponin I 0.391 H 0.874 H* S.aureus Protein A PCR MRSA (PCR) POC Glucose 225 H 09/21/20 09/21/20 09/21/20 04:36 05:37 06:20 APTT 34.3 Troponin I 3.920 H* S.aureus Protein A PCR MRSA (PCR) POC Glucose 165 H Micro: Microbiology 09/20/20 14:39 Gram Stain - Final Tissue - Left Foot Wound Culture - Preliminary Beta streptococcus 09/19/20 20:15 Gram Stain - Final Tissue Ulcer - Tissue Wound Culture - Final Streptococcus agalactiae (B) 09/19/20 17:45 - Final Blood Culture (Wb) - Anticubital Left Streptococcus agalactiae (B) Blood Culture - Preliminary Streptococcus agalactiae (B) Rhythm Strip Rhythm Strip: Sinus Rhythm Rate: 78 Ectopy: None
--- NOTE | 2020-09-21 11:42 | CRPHASE1 ---
Patient Communication Former Patient:: Phase I, Phase II PHII Cardiac Rehab Discussed with Patient:: Yes - Patient previously participated in CR Guide to Cardiac Rehab Given to Patient:: Yes Cardiac Rehab Facility Choice List Given to Patient:: Yes Cloth Shearing Supervisor:: [facility] Refer Phase II Cardiac Rehab:: Yes Sessions:: 36 sessions - 3 days/wk, 12 weeks Cardiac Rehabilitation Info Cardiac Rehabilitation Program Information: Cardiac Rehabilitation is important for patients like you who are recovering from a heart problem. Cardiac rehabilitation programs are recognized as integral to the continued care of the patient with coronary heart disease. The cardiac rehabilitation program is designed to optimize a patient's physical, psychological, and social functioning. Health child care leader work in cardiac rehabilitation programs and assist you with getting the treatments you need to get stronger and healthier - like exercise, healthy eating habits, and medications. Cardiac rehabilitation has been show to help people with heart problems live longer and have better life enjoyment than people who do not go to cardiac rehabilitation. Please contact the Cardiac Rehabilitation Program at [facility] at in two weeks if you have not heard from them.
--- NOTE | 2020-09-21 11:43 | CRPH1.INSTRU ---
General Education CAD and cardiac anatomy and function:: Patient communicates acknowledgment Explanation of diagnoses and procedures:: Patient communicates acknowledgment Sign/Symptoms of [place]:: Patient communicates acknowledgment Antiplatelet therapy: Patient communicates acknowledgment Proper use of NTG-SL: Patient communicates acknowledgment Emergency procedures and activation of EMS: Patient communicates acknowledgment Compliance of all prescribed medications: Patient communicates acknowledgment Dyslipidemia Patient Dyslipidemia Risk Factors Are:: Total Cholesterol, Triglycerides, HDL, LDL Recommendations Include:: Lipid profile provided, Reviewed NCEP/ATP guidelines, Therapeutic Lifestyle Change dietary guidelines Dyslipidemia Response Code:: Patient communicates acknowledgment Hypertension Recommendations Include:: Maintain BP <130/85, BP <130/80 if diabetic, DASH dietary guidelines, Decrease/maintain normal body weight Hypertension:: Patient communicates acknowledgment Heart Disease Patient Heart Disease Risk Factors Are:: Family history of heart disease < 65 years old, Previous cardiac event Recommendations Include:: Educated family members of their risk, Educated family members of importance of prevention of heart disease Heart Disease Response Code:: Patient communicates acknowledgment
--- NOTE | 2020-09-21 14:45 | PCM.PN.HOSP ---
Objective Data Objective Data Vital Signs: Vital Signs Temp Pulse Resp BP Pulse Ox 37.2 C 68 16 119/46 L 94 09/21/20 08:39 09/21/20 08:39 09/21/20 08:39 09/21/20 08:39 09/21/20 08:39 Oxygen Flow Rate (L/min) 2 Oxygen Delivery Method Nasal Cannula Weight: 81.5 kg Body Mass Index (BMI) 29.9 Finger Stick Blood Glucose 193 Intake & Output: Intake and Output for Last 24 Hours 09/19/20 09/20/20 09/21/20 23:59 23:59 23:59 Intake Total 825 / 825 2002.5 / 2002.5 1015.5 / 1015.5 Output Total 300 / 300 500 / 500 Balance 825 / 825 1702.5 / 1702.5 515.5 / 515.5 Lab / Micro Data Result Diagrams: 09/20/20 07:05 09/20/20 07:05 Labs: Laboratory Results - last 24 hr 09/20/20 09/20/20 09/20/20 14:39 16:42 21:52 APTT Troponin I S.aureus Protein A PCR NEGATIVE MRSA (PCR) Negative POC Glucose 164 H 301 H 09/20/20 09/21/20 09/21/20 22:48 00:01 01:35 APTT Troponin I 0.391 H 0.874 H* S.aureus Protein A PCR MRSA (PCR) POC Glucose 225 H 09/21/20 09/21/20 09/21/20 04:36 05:37 06:20 APTT 34.3 Troponin I 3.920 H* S.aureus Protein A PCR MRSA (PCR) POC Glucose 165 H Micro: Microbiology 09/20/20 14:39 Tissue - Left Foot Gram Stain - Final 09/20/20 14:39 Tissue - Left Foot Wound Culture - Preliminary Beta streptococcus 09/19/20 20:15 Tissue Ulcer - Tissue Gram Stain - Final 09/19/20 20:15 Tissue Ulcer - Tissue Wound Culture - Final Streptococcus agalactiae (B) 09/19/20 17:45 Blood Culture (Wb) - Anticubital Left - Final Streptococcus agalactiae (B) 09/19/20 17:45 Blood Culture (Wb) - Anticubital Left Blood Culture - Preliminary Streptococcus agalactiae (B) Rhythm Strip Rhythm Strip: Sinus Rhythm Rate: 78 Ectopy: None Assessment & Plan Assessment/Plan (1) Cellulitis of left foot: Status: Acute Code(s): L03.116 - Cellulitis of left lower limb Plan: No osteomyelitis noted on MRI vanc and pip/tazo DW Dr. Magana 09/20, before Expanse was available to review. Plan to take to surgery given emergency and threat of limb. 09/20: incision and drainage left foot with debridement of devitalized subcutaneous and muscle tissue Culture showing group B strep ID following. Non-weight bearing. (2) Non-ST elevation (NSTEMI) myocardial infarction: Status: Acute Code(s): I21.4 - Non-ST elevation (NSTEMI) myocardial infarction Plan: Developing 09/21: had PCI to OM Meds: ASA, clopidogrel, carvedilol No statin given statin intolerance (3) Diabetes mellitus type 2 in obese: Status: Chronic Code(s): E11.69 - Type 2 diabetes mellitus with other specified complication; E66.9 - Obesity, unspecified Plan: Uncontrolled Continue glargine, prandial and SSI for now, but resume home dosing of glargine. (4) Peripheral vascular disease: Status: Chronic Code(s): I73.9 - Peripheral vascular disease, unspecified Plan: Arterial duplex on 09/07/2020: showed diminished flow and decreased in distal posterior tibial. Seen by Dr. Pang and pt is to follow up as outpt. Meds as for NSTEMI (5) Mechanical venous thromboembolism (VTE) prophylaxis in place: Status: Acute Code(s): Z78.9 - Other specified health status Plan: SCDs for now. Start chemical prophylaxis 09/22 and to be continued until weight bearing status increased.
[2020-09-21] MEDS: Senna/Docusate Sodium 1 Tablet PO ×2 (15:33→20:34)
[2020-09-21] MEDS: Calcium (Elemental) 500 MG Tablet PO ×2 (15:33→20:34)
[2020-09-21] MEDS: Pantoprazole Sodium 20 MG Tablet PO (15:33)
[2020-09-21] MEDS: Creon 24,000 unit DR Capsule 1 CAP PO ×2 (15:33→20:34)
[2020-09-21] MEDS: Multivitamins,Ther W-Minerals Tablet 1 TABLET PO (15:33)
[2020-09-21] MEDS: Allopurinol 100 MG Tablet PO (15:34)
[2020-09-21] MEDS: Polyethylene Glycol 3350 17 GM PACKET PO (15:54)
[2020-09-21] MEDS: Juven (unflavored) Packet 1 PACKET PO (16:04)
--- NOTE | 2020-09-21 16:17 | NURSING ---
This RN called and updated the pt's daughter, Madison.
[2020-09-21 16:45] LABS: Bedside Glucose 147 mg/dL (70-110)
--- NOTE | 2020-09-21 17:43 | CL.D_ITS ---
Patient Name: SEBASTIÁN REYES Study Date: 09/21/2020 Performing: Master South MD Ht: 65 inches 165 cm : 1945 Wt: 181 lbs 82 kg Age: 75 Gender: female BSA: 1.89 PROCEDURE(S) PERFORMED [id number]/COR/LV/CABG [id number] W OR WO PTCA, SINGLE CORONARY ARTERY [id number], EACH ADD'L CORONARY ART, SAME MAJOR CLINICAL PROFILE AND INDICATIONS Indications: ACS <= 24 hrs, Worsening Angina, Suspected CAD Heart Failure: None Stress/Imaging Stress/Image Study Performed: No Angina Classification Anginal Classification w/in 2 Weeks: CCS IV CAD Presentations: Non-STEMI. CONCLUSIONS Elevated Left Ventricular End Diastolic Pressure Normal LV size, wall motion,and systolic function LVEF: by LV gram 65 % [place] Multivessel CAD Mitral Valve Insufficiency Mild RECOMMENDATIONS Risk factor modification Medical therapy Referred for immediate PCI DESCRIPTION OF PROCEDURE The patient arrived to the procedure lab. The risks and benefits of the procedure as well as a full d escription of our services here and current unavailability of surgical backup were fully explained to the patient and/or their significant other prior to the catheterization. The Timeout was completed, verifying the correct patient and procedure. The patient's procedural site was prepped and draped in the usual fashion. Local anesthetic was given subcutaneously to right groin region with Lidocaine 2%. Using a modified Seldinger technique, arterial access was obtained via the right femoral artery, a 4 Fr sheath was inserted Left Coronary Artery selective angiography was performed in multiple views us ing a 4 Fr. JL5 catheter. Right Coronary Artery selective angiography was then performed in multiple views using a 4 Fr. 3DRC catheter. Left internal mammary artery graft to the LAD selective angiograph y was performed in multiple views using a 4 Fr. 3DRC catheter. Left Ventriculography was performed in NAVA projection using a 4 Fr. Pigtail catheter. LV to AO pullback pressures were then rec orded.The arterial sheath was sutured in place and capped CORONARY ANGIOGRAPHY DOMINANCE: Right Dominant LEFT HEART ASSESSMENT Left Ventricular Ejection Fraction: by LV Gram 65 % Normal LV wall motion Elevated Left Ventricular End Diastolic Pressure LVEDP: 20 mmHg LEFT MAIN: Previously placed stent is patent LEFT ANTERIOR DESCENDING ARTERY: OSTIAL LAD: 50 % Stenosis PROX LAD: Mild calcification MID LAD: is occluded, to dital: small caliber vessel: fills from the DANIEL graft DIAGONAL 1: Proximal - 50 % Stenosis CIRCUMFLEX ARTERY: MID CIRC: Previously placed stent has an instent 90 % restenosis DISTAL CIRC: Previously placed stent is patent RAMUS: ostial: 50 % Stenosis, Mild luminal irregularities RIGHT CORONARY ARTERY: MID RCA: diffuse: 50 % Stenosis VALVE FINDINGS: Mitral Valve Insufficiency - Grade 1 AORTIC ROOT: Angiographically normal COMPLICATIONS No Complications PROCEDURE MEDICATIONS Versed 1 mg IV Oxygen: 2 L/min via nasal cannula Heparin 5000 unit(s) IV 09/21/2020 10:12:04 Heparin 3000 unit(s) IV 09/21/2020 10:38:22 Heparin 2000 unit(s) IV 09/21/2020 11:07:30 Nitro 200 mcg IC 09/21/2020 10:29:40 Plavix 300 mg PO 09/21/2020 10:09:58 SUMMARY OF HEMODYNAMIC DATA Time AIR REST ECG 09:10:29 AO 121/36 (63) SA 09:22:24 AO 120/37 (63) 09:23:00 LV 114/0, 21 09:39:11 LV 112/-3, 20 09:39:18 LV 111/0, 21 09:40:18 LVp 116/-4, 18 09:40:27 AO 108/40 (65) 09:40:32 AOp 109/40 (66) 09:40:32 ECG 11:26:51 Signed By Master South MD On 09/21/2020 17:42:11 Master South MD
[2020-09-21 20:32] LABS: Vancomycin, Trough Level 10.3 ug/mL (5.0-15.0)
[2020-09-21] MEDS: MELATONIN 3 MG TABLET 6 MG PO (20:34)
[2020-09-21] MEDS: Levothyroxine 75 MCG Tablet PO (20:34)
[2020-09-21] MEDS: Pravastatin 40 MG Tablet PO (20:34)
[2020-09-21] MEDS: Insulin Lispro 100 UNIT/ML INSULN.PEN 6 UNIT SC (20:35)
[2020-09-21] MEDS: Isosorbide Mononitrate 60 MG Tablet 120 MG PO (20:40)
--- NOTE | 2020-09-21 20:51 | PHA.PHARE_ITS ---
Consult Pharmacy has been consulted to manage selected antiobiotic: Vancomycin Type of Consult: Follow-up Labs: Sodium 136 mmol/L (136-145) 09/20/20 07:05 Potassium 4.8 mmol/L (3.5-5.1) 09/20/20 07:05 Chloride 109 mmol/L (98-107) H 09/20/20 07:05 Carbon Dioxide 19.0 mmol/L (21.0-32.0) L 09/20/20 07:05 Anion Gap 8 (5-15) 09/20/20 07:05 BUN 35 mg/dL (7-18) H 09/20/20 07:05 Creatinine 1.29 mg/dL (0.55-1.02) H 09/20/20 07:05 Est GFR (MDRD) Af Amer 52 mL/min (>60) L 09/20/20 07:05 Est GFR (MDRD) Non-Af 43 mL/min (>60) L 09/20/20 07:05 BUN/Creatinine Ratio 27.1 RATIO (10-20) H 09/20/20 07:05 Glucose 158 mg/dL (74-106) H 09/20/20 07:05 Vancomycin Trough 10.3 ug/mL (5.0-15.0) 09/21/20 19:30 Microbiology: Microbiology 09/20/20 14:39 Tissue - Left Foot Gram Stain - Final 09/20/20 14:39 Tissue - Left Foot Wound Culture - Preliminary Beta streptococcus 09/19/20 20:15 Tissue Ulcer - Tissue Gram Stain - Final 09/19/20 20:15 Tissue Ulcer - Tissue Wound Culture - Final Streptococcus agalactiae (B) 09/19/20 17:45 Blood Culture (Wb) - Anticubital Left - Final Streptococcus agalactiae (B) 09/19/20 17:45 Blood Culture (Wb) - Anticubital Left Blood Culture - Preliminary Streptococcus agalactiae (B) Goal Trough: 10-15 mcg/mL Pharmacy Plan for Drug Dosing: VANCOMYCIN LEVEL RECEIVED Current Vancomycin Dose: 750MG IV Q12HR Number of Doses Received: 3 Vancomycin Level: 10.3 Hours Since Last Dose: 23.5HR Renal Function: 1.29 Renal Function Trend: STABLE Vancomycin Plan/Comments: PT HAD TROUGH DRAWN WHICH IS WITHIN GOAL RANGE OF 10- 15. WILL CONTINUE CURRENT DOSE AND RECHECK A TROUGH IN 4 DAYS PER PROTOCOL. Pending Level: 09/25/20 @3622 Pharmacy Service will continue to monitor and adjust dosing as required.
[2020-09-21 21:55] LABS: Bedside Glucose 385 mg/dL (70-110)
[2020-09-21] MEDS: traZODone 100 MG Tablet PO (23:25)
[2020-09-22] VITALS (9 sets, daily range): BP systolic 93–151; BP diastolic 54–84; PULSE 75–96; RESP 16–20; TEMP 36.7–37.6; O2SAT 92–97
[2020-09-22] MEDS: morphine (oral solution) 10MG/0.5ML Syringe 6 MG PO ×2 (02:23→11:59)
[2020-09-22] MEDS: 0.9% Normal Saline 1,000 ML 75 ML IV ×2 (04:35→16:59)
[2020-09-22] MEDS: Enoxaparin 40 MG/0.4 ML Syringe SC (05:58)
[2020-09-22] MEDS: Menthol/Lanolin/Calamine/Znox 113 GM Tube 1 APPLIC TOPICAL ×3 (05:59→20:57)
[2020-09-22 06:41] LABS: Hematocrit 27.9 % (37-47); Hemoglobin 8.9 g/dL (12.0-15.0); Mean Corp Hgb Conc 31.9 g/dL (32-36); Mean Corpuscular Hgb 29.1 pg (27.0-32.0); Mean Corpuscular Volume 91.2 fL (81-99); Mean Platelet Vol. 9.4 fl (6.2-12.0); Platelet Count 163 K/mm3 (150-450); RBC Distribution Width CV 14.2 % (11.6-14.6); RBC Distribution Width SD 47.6 fl (35.1-43.9); Red Blood Count 3.06 M/mm3 (4.2-5.4); White Blood Count 6.6 K/mm3 (4.4-11.0)
[2020-09-22 07:10] LABS: ALB/GLOB Ratio 0.5 RATIO (0.9-2.4); AST(SGOT) 44 U/L (15-37); Alanine Aminotransfer ALT/SGPT 38 U/L (13-56); Alkaline Phosphatase 85 U/L (45-117); Anion Gap 8 (5-15); BUN 25 mg/dL (7-18); BUN/Creat Ratio 20.7 RATIO (10-20); Calcium,Total 7.8 mg/dL (8.5-10.1); Chloride 109 mmol/L (98-107); Creatinine, Serum 1.21 mg/dL (0.55-1.02); EST Glomerular Filtration Rate 46 mL/min (>60); Est Glom Filt Rate - Afr Amer 56 mL/min (>60); Estimated Creatinine Clearance 37.26 ml/min; Globulin 4.3 g/dL (2.2-4.2); Glucose 153 mg/dL (74-106); Potassium 4.1 mmol/L (3.5-5.1); Protein, Total 6.3 g/dL (6.4-8.2); Sodium Level 133 mmol/L (136-145)
--- NOTE | 2020-09-22 07:37 | PCM.PROGNOTE ---
Subjective Subjective: This 75 year old female was seen bedside POD#2 left foot incision and drainage with debridement. She denies nausea, vomiting, calf pain, shortness of breath this morning. She reports foot pain 6/10. She also feels flushed and has ongoing chest pain. Objective Data Objective Data Vital Signs: Vital Signs Temp Pulse Resp BP Pulse Ox 98.1 F 96 16 151/62 H 95 09/22/20 03:50 09/22/20 06:54 09/22/20 03:50 09/22/20 03:50 09/22/20 03:50 Oxygen Flow Rate (L/min) 2 Oxygen Delivery Method Room Air Weight: 81.5 kg Body Mass Index (BMI) 29.9 Finger Stick Blood Glucose 193 Intake & Output: Intake and Output for Last 24 Hours 09/20/20 09/21/20 09/22/20 23:59 23:59 23:59 Intake Total 2002.5 / 2001.5 1730.5 / 1970.5 1530 / 1530 Output Total 300 / 300 900 / 1500 1500 / 1500 Balance 1702.5 / 1702.5 830.5 / 470.5 Lab / Micro Data Result Diagrams: 09/22/20 06:25 09/22/20 06:25 Labs: Laboratory Results - last 24 hr 09/21/20 09/21/20 09/21/20 15:52 19:30 20:33 WBC RBC Hgb Hct MCV MCH MCHC RDW Std Deviation RDW Coeff of Marco Plt Count MPV Sodium Potassium Chloride Carbon Dioxide Anion Gap BUN Creatinine Estim Creat Clear Calc Est GFR (MDRD) Af Amer Est GFR (MDRD) Non-Af BUN/Creatinine Ratio Glucose Calcium Total Bilirubin AST ALT Alkaline Phosphatase Total Protein Albumin Globulin Albumin/Globulin Ratio Vancomycin Trough 10.3 POC Glucose 147 H 385 H 09/22/20 09/22/20 06:25 06:25 WBC 6.6 RBC 3.06 L Hgb 8.9 L Hct 27.9 L MCV 91.2 MCH 29.1 MCHC 31.9 L RDW Std Deviation 47.6 H RDW Coeff of Marco 14.2 Plt Count 163 MPV 9.4 Sodium 133 L Potassium 4.1 Chloride 109 H Carbon Dioxide 16.0 L Anion Gap 8 BUN 25 H Creatinine 1.21 H Estim Creat Clear Calc 37.26 Est GFR (MDRD) Af Amer 56 L Est GFR (MDRD) Non-Af 46 L BUN/Creatinine Ratio 20.7 H Glucose 153 H Calcium 7.8 L Total Bilirubin 0.20 AST 44 H ALT 38 Alkaline Phosphatase 85 Total Protein 6.3 L Albumin 2.0 L Globulin 4.3 H Albumin/Globulin Ratio 0.5 L Vancomycin Trough POC Glucose Micro: Microbiology 09/19/20 17:45 Blood Culture (Wb) - Anticubital Left - Final Streptococcus agalactiae (B) 09/19/20 17:45 Blood Culture (Wb) - Anticubital Left Blood Culture - Preliminary Streptococcus agalactiae (B) 09/20/20 14:39 Tissue - Left Foot Gram Stain - Final 09/20/20 14:39 Tissue - Left Foot Wound Culture - Preliminary Beta streptococcus 09/19/20 20:15 Tissue Ulcer - Tissue Gram Stain - Final 09/19/20 20:15 Tissue Ulcer - Tissue Wound Culture - Final Streptococcus agalactiae (B) Rhythm Strip Rhythm Strip: Sinus Rhythm Rate: 78 Ectopy: None Physical Exam Const alert and oriented x3 Constitutional Narrative: confusion resolved General Appearance: cooperative Orientation / Consciousness: awake HEENT normocephalic Cardio Peripheral Pulses: dorsalis pedis pulses present Extremity normal capillary refill Extremity Narrative: no cyanosis, no calf tenderness, diminished pulses muscle wasting noted. deep foot drainage site tenderness with decreased adjacent tissue palpation discomfort. No adjacent bogginess, fluctuance, or crepitus noted. stable chronic charcot deformity foot noted General Extremity: edema Peripheral Pulses: Yes dorsalis pedis pulses present Left Lower Extremity: foot and digits Positive for inspection ( I & D site has resolution of purulence and erythema. no odor or necrosis. hematogenous drainage on dressing only. no crepitus on palpation or streaking.) and ROM (AROM digits bilateral) Skin Skin Narrative: no purulence, no erythema, no streaking, no odor, no infection. Adjacent skin is atrophic. Wound Narrative: skin discontinuity plantar arch with diffuse decreased erythema intensity w/ tracking to plantar medial midfoot. Purulence drainage noted today on expression without odor. no necrosis or eschar. no adjacent crepitus or bogginess on palpation. 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 Code(s): L97.523 - Non-pressure chronic ulcer of other part of left foot with necrosis of muscle (2) Cellulitis of left foot: Status: Acute Code(s): L03.116 - Cellulitis of left lower limb (3) Delayed wound healing: Status: Chronic Code(s): T14.8XXD - Other injury of unspecified body region, subsequent encounter (4) Other specified peripheral vascular diseases: Status: Chronic Code(s): I73.89 - Other specified peripheral vascular diseases (5) Charcot's joint of left foot: Status: Chronic Code(s): M14.672 - Charcot's joint, left ankle and foot (6) Type 2 diabetes mellitus with diabetic polyneuropathy: Status: Chronic Code(s): E11.42 - Type 2 diabetes mellitus with diabetic polyneuropathy Qualifiers: Diabetes mellitus middle or intermediate school principal insulin use: with fpc use Qualified Code(s): E11.42 - Type 2 diabetes mellitus with diabetic polyneuropathy; Z79.4 - long term care phlebotomist (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 She is afebrile this morning and her vitals are stable. No leukocytosis is noted. There is no purulence or erythema. She has been on IV antibiotics (vanc/zosyn). Cultures from surgery (pending still: aerobic, anaerobic, acid fast, fungal, mrsa pcr) and clinic the day prior are pending (Strep B). Bacteremia also noted. ID on consult. Betadine wet-to-dry deep wound packing was applied. A wound vac will likely be applied tomorrow. She was initially scheduled for outpatient vascular intervention which was cancelled due to her current admission. Dr. Pang is on consult and recommended rescheduling the procedure within the next 1-2 weeks in the outpatient setting. To maintain non weightbearing status. To work with PT / OT. Medical management, DVT prophylaxis, and cardiac management per hospitalist and guest services associate. Plavix, enoxaparin, and aspirin are ordered. Pain medications ordered and her continued complaint is noted. Will see if adjustments are appropriate. I'll continue to follow her close while in house. Please call if questions. Ivanna Magana DPM, FACFAS [facility] [phone]
[2020-09-22] MEDS: Insulin Lispro 100 UNIT/ML INSULN.PEN 6 UNIT SC (08:23)
[2020-09-22] MEDS: Juven (unflavored) Packet 1 PACKET PO ×2 (08:23→16:57)
[2020-09-22] MEDS: Multivitamins,Ther W-Minerals Tablet 1 TABLET PO ×2 (08:23→16:58)
[2020-09-22] MEDS: Carvedilol 25 MG Tablet PO ×2 (08:24→20:56)
[2020-09-22] MEDS: Aspirin E.C. 81 MG Tablet PO (08:24)
[2020-09-22] MEDS: Clopidogrel Bisulfate 75 MG Tablet PO (08:26)
[2020-09-22] MEDS: amLODIPine 5 MG Tablet PO (08:26)
[2020-09-22 08:35] LABS: Bedside Glucose 139 mg/dL (70-110)
--- NOTE | 2020-09-22 09:59 | PN.CARD_ITS ---
Subjective Subjective: The patient's to she feels better this morning. She states late yesterday evening and through the night she had chest discomfort which she described as a soreness. She questions whether it was related to gastroesop hageal reflux that she experiences at home. She notes her discomfort is gone at this time. She has no other new acute complaints. Objective Data Objective Data Vital Signs: Vital Signs Temp Pulse Resp BP Pulse Ox 98.1 F 96 16 151/62 H 95 09/22/20 03:50 09/22/20 06:54 09/22/20 03:50 09/22/20 03:50 09/22/20 07:27 Oxygen Flow Rate (L/min) 2 Oxygen Delivery Method Room Air Weight: 179 lb 10.828 oz Body Mass Index (BMI) 29.9 Finger Stick Blood Glucose 193 Intake & Output: Intake and Output for Last 24 Hours 09/20/20 09/21/20 09/22/20 23:59 23:59 23:59 Intake Total 2002.5 / 2001.5 1730.5 / 1970.5 1530 / 1530 Output Total 300 / 300 900 / 1500 1500 / 1500 Balance 1702.5 / 1702.5 830.5 / 470.5 Lab / Micro Data Result Diagrams: 09/22/20 06:25 09/22/20 06:25 Labs: Laboratory Results - last 24 hr 09/21/20 09/21/20 09/21/20 15:52 19:30 20:33 WBC RBC Hgb Hct MCV MCH MCHC RDW Std Deviation RDW Coeff of Marco Plt Count MPV Sodium Potassium Chloride Carbon Dioxide Anion Gap BUN Creatinine Estim Creat Clear Calc Est GFR (MDRD) Af Amer Est GFR (MDRD) Non-Af BUN/Creatinine Ratio Glucose Calcium Total Bilirubin AST ALT Alkaline Phosphatase Total Protein Albumin Globulin Albumin/Globulin Ratio Vancomycin Trough 10.3 POC Glucose 147 H 385 H 09/22/20 09/22/20 09/22/20 06:25 06:25 08:21 WBC 6.6 RBC 3.06 L Hgb 8.9 L Hct 27.9 L MCV 91.2 MCH 29.1 MCHC 31.9 L RDW Std Deviation 47.6 H RDW Coeff of Marco 14.2 Plt Count 163 MPV 9.4 Sodium 133 L Potassium 4.1 Chloride 109 H Carbon Dioxide 16.0 L Anion Gap 8 BUN 25 H Creatinine 1.21 H Estim Creat Clear Calc 37.26 Est GFR (MDRD) Af Amer 56 L Est GFR (MDRD) Non-Af 46 L BUN/Creatinine Ratio 20.7 H Glucose 153 H Calcium 7.8 L Total Bilirubin 0.20 AST 44 H ALT 38 Alkaline Phosphatase 85 Total Protein 6.3 L Albumin 2.0 L Globulin 4.3 H Albumin/Globulin Ratio 0.5 L Vancomycin Trough POC Glucose 139 H Micro: Microbiology 09/19/20 20:15 Tissue Ulcer - Tissue Gram Stain - Final 09/19/20 20:15 Tissue Ulcer - Tissue Wound Culture - Final Streptococcus agalactiae (B) 09/19/20 20:15 Tissue Ulcer - Tissue Anaerobic Culture - Final No anaerobic bacteria isolated. 09/19/20 18:49 Blood Culture (Wb) - Right Hand Blood Culture - Preliminary No growth in 48 hours. 09/19/20 17:45 Blood Culture (Wb) - Anticubital Left - Final Streptococcus agalactiae (B) 09/19/20 17:45 Blood Culture (Wb) - Anticubital Left Blood Culture - Preliminary Streptococcus agalactiae (B) 09/20/20 14:39 Tissue - Left Foot Gram Stain - Final 09/20/20 14:39 Tissue - Left Foot Wound Culture - Final Streptococcus agalactiae (B) Rhythm Strip Rhythm Strip: Sinus Rhythm Rate: 78 Ectopy: None Physical Exam Narrative The patient is awake and alert and in no acute distress. Const alert and oriented x3 Orientation / Consciousness: awake HEENT normocephalic and head/scalp atraumatic Eyes PERRL and EOMs intact bilaterally Neck full ROM and supple Chest inspection of chest normal Chest: midline sternotomy incision Resp normal respiratory effort and clear to auscultation bilaterally Cardio regular rate, regular rhythm, S1 normal heart sound and S2 normal heart sound Peripheral Pulses: brachial pulses present, radial pulses present and femoral pulses present GI normal to inspection, nondistended, normoactive bowel sounds Extremity Extremity Narrative: Left foot: Surgical wrap with Arjun dressing Peripheral Pulses: Yes brachial pulses present, radial pulses present and femoral pulses present Neuro oriented x3 and moves all extremities Psych mental status grossly normal Assessment & Plan Assessment/Plan (1) Non-ST elevation (NSTEMI) myocardial infarction: Status: Acute Code(s): I21.4 - Non-ST elevation (NSTEMI) myocardial infarction Plan: The patient has signs and symptoms and objective findings compatible with an acute non-ST segment elevation AR. The patient has undergone evaluation with diagnostic cardiac catheterization. She was found to have left circumflex coronary artery in-stent restenosis. She subsequently underwent repeat PTCA/stent. She received what was considered a good angiographic result. She will continue medical therapy. (2) Coronary artery disease: Status: Chronic Code(s): I25.10 - Atherosclerotic heart disease of [place] coronary artery without angina pectoris Plan: The patient does have a history of underlying CAD. This is led to PCI and CABG. At the present time there are concerns of an acute non-ST segment elevation AR. The patient has undergone evaluation with cardiac catheterization. She underwent PTCA/stent of an LCx in-stent restenosis. At the present time she will continue medical management. (3) Stented coronary artery: Status: Chronic Code(s): Z95.5 - Presence of coronary angioplasty implant and graft Plan: The patient has undergone previous PCI in the past to the left coronary artery system including the left circumflex coronary artery. As noted above during her cardiac catheterization she was found to have evidence of LCx in-stent restenosis. She underwent repeat PTCA/stent with what was considered to be good angiographic result. She will continue medical management. (4) History of coronary artery bypass graft: Status: Chronic Code(s): Z95.1 - Presence of aortocoronary bypass graft Plan: She does have a history of CABG. During her cardiac catheterization her DANIEL to the LAD was patent. (5) Peripheral vascular disease: Status: Chronic Code(s): I73.9 - Peripheral vascular disease, unspecified Plan: She does have a history of peripheral vascular disease. The details are unknown at this time. She believes she needs reevaluation of this to assist with healing of her left foot lesion. (6) Hyperlipidemia: Status: Chronic Code(s): E78.5 - Hyperlipidemia, unspecified Plan: She will continue risk factor evaluation care. (7) Hypertension: Status: Chronic Code(s): I10 - Essential (primary) hypertension Plan: Her blood pressure be monitored with her medicines adjusted accordingly. (8) Diabetes mellitus type 2 in obese: Status: Chronic Code(s): E11.69 - Type 2 diabetes mellitus with other specified complication; E66.9 - Obesity, unspecified Plan: The patient will continue evaluation care per internal medicine. (9) Abscess of left foot: Status: Inactive Code(s): L02.612 - Cutaneous abscess of left foot Plan: The patient will continue evaluation care per internal medicine and podiatry. Addt'l Comments The patient's case was discussed and reviewed with her. This note was generated with [employer] dictation software. It may contain incorrect words, spelling, and punctuation that were not noted in checking the note before signing.
--- NOTE | 2020-09-22 10:00 | EKG12_ITS ---
Test Reason : AM EKG Blood Pressure : / mmHG Vent. Rate : 083 BPM Atrial Rate : 083 BPM P-R Int : 184 ms QRS Dur : 094 ms QT Int : 380 ms P-R-T Axes : 069 -26 079 degrees QTc Int : 446 ms Normal sinus rhythm Nonspecific ST abnormality Abnormal ECG Confirmed by ALEJANDRO ANAYA, RODRIGUE ([id number]), research editor CAMERON CALLES ([id number]) on 09/23/2020 10:09:45 AM Referred By: REINA Confirmed By:RODRIGUE ALLEN MD
--- NOTE | 2020-09-22 10:01 | PCM.PN.ID ---
Physical Exam Narrative No fever, severe foot pain overnight, feeling ok this AM Const alert and no apparent distress General Appearance: cooperative Resp clear to auscultation bilaterally Cardio regular rate and regular rhythm GI normal to inspection, nondistended, normoactive bowel sounds Skin Skin Narrative: L foot wrapped ID ID: Route of nutrition/ use of supplements: [] Nutritional Intake: [] IV Site: [] Amloney Catheter: [] Assessment & Plan Assessment/Plan (1) Diabetic infection of left foot: Status: Acute Code(s): E11.628 - Type 2 diabetes mellitus with other skin complications; L08.9 - Local infection of the skin and subcutaneous tissue, unspecified Plan: OR 09/[address] Magana, pus drained. On empiric vanc/zosyn. Recent cxs with MS-CoNS, enterococcus, strep. Surg cx all with GBS. 1 of 2 bcx with GBS. Will narrow to unasyn. Plan on long course of po abx at discharge (either augmentin or keflex). Heart cath yesterday. MRI showed no osteo. Will follow
[2020-09-22] MEDS: Calcium (Elemental) 500 MG Tablet PO ×2 (10:08→20:56)
[2020-09-22] MEDS: Allopurinol 100 MG Tablet PO (10:09)
[2020-09-22] MEDS: Polyethylene Glycol 3350 17 GM PACKET PO (10:09)
[2020-09-22] MEDS: Senna/Docusate Sodium 1 Tablet PO ×2 (10:09→20:57)
[2020-09-22] MEDS: Creon 24,000 unit DR Capsule 1 CAP PO ×2 (10:09→20:56)
[2020-09-22] MEDS: Pantoprazole Sodium 20 MG Tablet PO (10:09)
[2020-09-22 12:45] LABS: Bedside Glucose 153 mg/dL (70-110)
[2020-09-22] MEDS: Ondansetron 4 MG/2 ML Vial IV (13:10)
--- NOTE | 2020-09-22 14:58 | PCM.PN.HOSP ---
Subjective Subjective: States that she takes morphine at home to help with her bowel motility. States that due to her Padmini-en-Y bypass she has a history of fast output. Though she states that she is currently constipated. Patient wants something for pain tonight even though she is not having pain now. Said that it took 2 hours before she could get something for her pain last night. States that she takes her medications with melatonin and trazodone at certain times at night. Melatonin is at 5 or 6 and the trazodone is at 10. She states that she normally takes melatonin after dinner. She want something stronger for pain though once again she is not currently having any pain. Objective Data Objective Data Vital Signs: Vital Signs Temp Pulse Resp BP Pulse Ox 37.6 C H 77 18 125/54 H 92 09/22/20 09:50 09/22/20 09:50 09/22/20 09:50 09/22/20 09:50 09/22/20 09:50 Oxygen Flow Rate (L/min) 2 Oxygen Delivery Method Room Air Weight: 81.5 kg Body Mass Index (BMI) 29.9 Finger Stick Blood Glucose 193 Intake & Output: Intake and Output for Last 24 Hours 09/20/20 09/21/20 09/22/20 23:59 23:59 23:59 Intake Total 2002.5 / 2001.5 1730.5 / 1970.5 2412 / 2412 Output Total 300 / 300 900 / 1500 1500 / 1500 Balance 1702.5 / 1702.5 830.5 / 470.5 912 / 912 Lab / Micro Data Result Diagrams: 09/22/20 06:25 09/22/20 06:25 Labs: Laboratory Results - last 24 hr 09/21/20 09/21/20 09/21/20 15:52 19:30 20:33 WBC RBC Hgb Hct MCV MCH MCHC RDW Std Deviation RDW Coeff of Marco Plt Count MPV Sodium Potassium Chloride Carbon Dioxide Anion Gap BUN Creatinine Estim Creat Clear Calc Est GFR (MDRD) Af Amer Est GFR (MDRD) Non-Af BUN/Creatinine Ratio Glucose Calcium Total Bilirubin AST ALT Alkaline Phosphatase Total Protein Albumin Globulin Albumin/Globulin Ratio Vancomycin Trough 10.3 POC Glucose 147 H 385 H 09/22/20 09/22/20 09/22/20 06:25 06:25 08:21 WBC 6.6 RBC 3.06 L Hgb 8.9 L Hct 27.9 L MCV 91.2 MCH 29.1 MCHC 31.9 L RDW Std Deviation 47.6 H RDW Coeff of Marco 14.2 Plt Count 163 MPV 9.4 Sodium 133 L Potassium 4.1 Chloride 109 H Carbon Dioxide 16.0 L Anion Gap 8 BUN 25 H Creatinine 1.21 H Estim Creat Clear Calc 37.26 Est GFR (MDRD) Af Amer 56 L Est GFR (MDRD) Non-Af 46 L BUN/Creatinine Ratio 20.7 H Glucose 153 H Calcium 7.8 L Total Bilirubin 0.20 AST 44 H ALT 38 Alkaline Phosphatase 85 Total Protein 6.3 L Albumin 2.0 L Globulin 4.3 H Albumin/Globulin Ratio 0.5 L Vancomycin Trough POC Glucose 139 H 09/22/20 11:57 WBC RBC Hgb Hct MCV MCH MCHC RDW Std Deviation RDW Coeff of Marco Plt Count MPV Sodium Potassium Chloride Carbon Dioxide Anion Gap BUN Creatinine Estim Creat Clear Calc Est GFR (MDRD) Af Amer Est GFR (MDRD) Non-Af BUN/Creatinine Ratio Glucose Calcium Total Bilirubin AST ALT Alkaline Phosphatase Total Protein Albumin Globulin Albumin/Globulin Ratio Vancomycin Trough POC Glucose 153 H Micro: Microbiology 09/20/20 14:39 Tissue - Left Foot Gram Stain - Final 09/20/20 14:39 Tissue - Left Foot Wound Culture - Final Streptococcus agalactiae (B) 09/20/20 14:39 Tissue - Left Foot Anaerobic Culture - Final No anaerobic bacteria isolated. 09/19/20 20:15 Tissue Ulcer - Tissue Gram Stain - Final 09/19/20 20:15 Tissue Ulcer - Tissue Wound Culture - Final Streptococcus agalactiae (B) 09/19/20 20:15 Tissue Ulcer - Tissue Anaerobic Culture - Final No anaerobic bacteria isolated. 09/19/20 18:49 Blood Culture (Wb) - Right Hand Blood Culture - Preliminary No growth in 48 hours. 09/19/20 17:45 Blood Culture (Wb) - Anticubital Left - Final Streptococcus agalactiae (B) 09/19/20 17:45 Blood Culture (Wb) - Anticubital Left Blood Culture - Preliminary Streptococcus agalactiae (B) Rhythm Strip Rhythm Strip: Sinus Rhythm Rate: 78 Ectopy: None Physical Exam Narrative Up in chair. Afebrile. Nontoxic. Const alert Psych Attitude: agitated Assessment & Plan Assessment/Plan (1) Cellulitis of left foot: Status: Acute Code(s): L03.116 - Cellulitis of left lower limb Plan: No osteomyelitis noted on MRI DW Dr. Magana 09/20, before Ex[facility]se was available to review. Plan to take to surgery given emergency and threat of limb. 09/20: incision and drainage left foot with debridement of devitalized subcutaneous and muscle tissue Culture showing group B strep ID following. Non-weight bearing. Changed her ampicillin/sulbactam. Tentatively looking at the oral antibiotics upon discharge. Patient complaining of pain but none currently. Patient was wanting something more for pain. States that she does not take morphine for pain but for rather to slow her bowel motility which she is actually constipated at this time. I told her I would continue with the morphine as it is not anything additional unless her pain is refractory to the morphine as she is prescribed at home. She did not seem satisfied and seem actually confused with but I spent extensive time explained this to her. Explained that she can take acetaminophen but she said that she cannot take acetaminophen due to her heart. I told her there is no contraindication to take acetaminophen for her heart. Then she said it was because of her being on Creon. I told her she is on Creon for pancreas and that would have no bearing on her pancreas. I did inquire if she does have cirrhosis to which she denied. And I told her there is no contraindication to her receiving acetaminophen. Overall greater than 35 minutes of which greater than 50% of time was counseling the patient about her pain medication, reviewing her morphine, Tylenol as well as her sleep aids with her. (2) Non-ST elevation (NSTEMI) myocardial infarction: Status: Acute Code(s): I21.4 - Non-ST elevation (NSTEMI) myocardial infarction Plan: Secondary to in-stent stenosis. 09/21: had PCI to circumflex Meds: ASA, clopidogrel, carvedilol No statin given statin intolerance (3) Diabetes mellitus type 2 in obese: Status: Chronic Code(s): E11.69 - Type 2 diabetes mellitus with other specified complication; E66.9 - Obesity, unspecified Plan: Uncontrolled Continue glargine, prandial and SSI for now, but resume home dosing of glargine. (4) Peripheral vascular disease: Status: Chronic Code(s): I73.9 - Peripheral vascular disease, unspecified Plan: Arterial duplex on 09/07/2020: showed diminished flow and decreased in distal posterior tibial. Seen by Dr. Pang and pt is to follow up as outpt. Meds as for NSTEMI (5) Mechanical venous thromboembolism (VTE) prophylaxis in place: Status: Acute Code(s): Z78.9 - Other specified health status Plan: SCDs for now. Start chemical prophylaxis 09/22 and to be continued until weight bearing status increased. Inpatient E&M: [id number] Subs Hosp L3
[2020-09-22 16:55] LABS: Bedside Glucose 146 mg/dL (70-110)
[2020-09-22] MEDS: Acetaminophen 500 MG Tablet 1000 MG PO (16:58)
[2020-09-22] MEDS: MELATONIN 3 MG TABLET 6 MG PO (16:59)
[2020-09-22] MEDS: 0.9% Saline Lock 10 ML Syringe IV (20:53)
[2020-09-22] MEDS: traZODone 100 MG Tablet PO (20:56)
[2020-09-22] MEDS: tiZANidine HCl 2 MG Tablet 4 MG PO (20:56)
[2020-09-22] MEDS: Levothyroxine 75 MCG Tablet PO (20:56)
[2020-09-22] MEDS: Pravastatin 40 MG Tablet PO (20:57)
[2020-09-22 21:06] LABS: Bedside Glucose 146 mg/dL (70-110)
[2020-09-23] VITALS (8 sets, daily range): BP systolic 116–171; BP diastolic 47–70; PULSE 62–82; RESP 16–18; TEMP 36.2–36.8; O2SAT 92
[2020-09-23] MEDS: Menthol/Lanolin/Calamine/Znox 113 GM Tube 1 APPLIC TOPICAL ×3 (05:16→22:06)
[2020-09-23] MEDS: Enoxaparin 40 MG/0.4 ML Syringe SC (05:16)
--- NOTE | 2020-09-23 05:26 | NURSING ---
Meds found in med cup on bedside table. Pt unaware of what the meds are. This RN compared the meds to meds pt is taking and one is a morning multivitamin. Unsure what the other two are. Meds are from a previous shift, were shown to supervisor propellant charge loading, and wasted.
[2020-09-23 06:15] LABS: Absolute Lymphocyte Count 1.42 X10^3/uL (0.83-4.51); Absolute Neutrophil Count 4.5 X10^3/uL (2.0-7.7); Basophil# 0.02 X10^3/uL; Basophil% 0.3 % (0-1); Eosinophil# 0.28 X10^3/uL; Eosinophils% 4.1 % (0-5); Hematocrit 27.9 % (37-47); Hemoglobin 8.8 g/dL (12.0-15.0); Lymphocyte # 1.42 X10^3/ul (0.83-4.51); Lymphocyte % 20.8 % (19-41); Mean Corp Hgb Conc 31.5 g/dL (32-36); Mean Corpuscular Hgb 28.5 pg (27.0-32.0); Mean Corpuscular Volume 90.3 fL (81-99); Mean Platelet Vol. 9.6 fl (6.2-12.0); Monocyte# 0.61 X10^3/uL; Monocyte% 8.9 % (0-10); NRBC Flagged by Analyzer 0 % (0-5); Neutrophil # 4.46 X10^3/uL (2.7-7.7); Neutrophil % 65.3 % (47-70); Platelet Count 208 K/mm3 (150-450); RBC Distribution Width CV 14.3 % (11.6-14.6); Red Blood Count 3.09 M/mm3 (4.2-5.4); White Blood Count 6.8 K/mm3 (4.4-11.0)
[2020-09-23 06:47] LABS: Anion Gap 6 (5-15); BUN 22 mg/dL (7-18); BUN/Creat Ratio 19.5 RATIO (10-20); Calcium,Total 8.1 mg/dL (8.5-10.1); Chloride 114 mmol/L (98-107); Creatinine, Serum 1.13 mg/dL (0.55-1.02); EST Glomerular Filtration Rate 50 mL/min (>60); Est Glom Filt Rate - Afr Amer 61 mL/min (>60); Glucose 60 mg/dL (74-106); Potassium 3.6 mmol/L (3.5-5.1); Sodium Level 140 mmol/L (136-145)
--- NOTE | 2020-09-23 06:47 | PN_ITS ---
Subjective Subjective: 75 year old female seen bedside POD #3 I & D left foot with soft tissue debridement. Her pain is rated 1/10. She denies fever, chills, nausea, vomiting, chest pain, shortness of breath or calf pain. She has maintained a non weightbearing status. Objective Data Objective Data Vital Signs: Vital Signs Temp Pulse Resp BP Pulse Ox 98.0 F 74 16 125/59 H 92 09/23/20 03:00 09/23/20 03:00 09/23/20 03:00 09/23/20 03:00 09/23/20 03:00 Oxygen Flow Rate (L/min) 2 Oxygen Delivery Method Nasal Cannula Weight: 81.5 kg Body Mass Index (BMI) 29.9 Finger Stick Blood Glucose 193 Intake & Output: Intake and Output for Last 24 Hours 09/21/20 09/22/20 09/23/20 23:59 23:59 23:59 Intake Total 1730.5 / 1970.5 4474 / 4594 757 / 757 Output Total 900 / 1500 2725 / 3225 2075 / 2075 Balance 830.5 / 470.5 1749 / 1369 -1318 / -1318 Lab / Micro Data Result Diagrams: 09/23/20 04:55 09/22/20 06:25 Labs: Laboratory Results - last 24 hr 09/22/20 09/22/20 09/22/20 06:25 08:21 11:57 WBC RBC Hgb Hct MCV MCH MCHC RDW Std Deviation RDW Coeff of Marco Plt Count MPV Immature Gran % (Auto) Neut % (Auto) Lymph % (Auto) [place] % (Auto) Eos % (Auto) Baso % (Auto) Absolute Neuts (auto) Absolute Lymphs (auto) Nucleated RBC % Sodium 133 L Potassium 4.1 Chloride 109 H Carbon Dioxide 16.0 L Anion Gap 8 BUN 25 H Creatinine 1.21 H Estim Creat Clear Calc 37.26 Est GFR (MDRD) Af Amer 56 L Est GFR (MDRD) Non-Af 46 L BUN/Creatinine Ratio 20.7 H Glucose 153 H Calcium 7.8 L Total Bilirubin 0.20 AST 44 H ALT 38 Alkaline Phosphatase 85 Total Protein 6.3 L Albumin 2.0 L Globulin 4.3 H Albumin/Globulin Ratio 0.5 L POC Glucose 139 H 153 H 09/22/20 09/22/2021 16:45 20:52 04:55 WBC 6.8 RBC 3.09 L Hgb 8.8 L Hct 27.9 L MCV 90.3 MCH 28.5 MCHC 31.5 L RDW Std Deviation 47.0 H RDW Coeff of Marco 14.3 Plt Count 208 MPV 9.6 Immature Gran % (Auto) 0.600 Neut % (Auto) 65.3 Lymph % (Auto) 20.8 [place] % (Auto) 8.9 Eos % (Auto) 4.1 Baso % (Auto) 0.3 Absolute Neuts (auto) 4.5 Absolute Lymphs (auto) 1.42 Nucleated RBC % 0 Sodium Potassium Chloride Carbon Dioxide Anion Gap BUN Creatinine Estim Creat Clear Calc Est GFR (MDRD) Af Amer Est GFR (MDRD) Non-Af BUN/Creatinine Ratio Glucose Calcium Total Bilirubin AST ALT Alkaline Phosphatase Total Protein Albumin Globulin Albumin/Globulin Ratio POC Glucose 146 H 146 H Micro: Microbiology 09/20/20 14:39 Tissue - Left Foot Gram Stain - Final 09/20/20 14:39 Tissue - Left Foot Wound Culture - Final Streptococcus agalactiae (B) 09/20/20 14:39 Tissue - Left Foot Anaerobic Culture - Final No anaerobic bacteria isolated. 09/19/20 20:15 Tissue Ulcer - Tissue Gram Stain - Final 09/19/20 20:15 Tissue Ulcer - Tissue Wound Culture - Final Streptococcus agalactiae (B) 09/19/20 20:15 Tissue Ulcer - Tissue Anaerobic Culture - Final No anaerobic bacteria isolated. 09/19/20 18:49 Blood Culture (Wb) - Right Hand Blood Culture - Preliminary No growth in 48 hours. 09/19/20 17:45 Blood Culture (Wb) - Anticubital Left - Final Streptococcus agalactiae (B) 09/19/20 17:45 Blood Culture (Wb) - Anticubital Left Blood Culture - Preliminary Streptococcus agalactiae (B) Radiography Diagnostic Testing: Radiology Impression Echocardiogram 09/20/20 13:15 Interpretation Summary Left ventricular systolic function is normal. The estimated ejection fraction is 70 %. Sigmoid septum. The left atrium is mildly enlarged. There is mild mitral annular calcification. Mild diffuse mitral valve thickening. Mild (1+) mitral valve insufficiency. Mild to moderate (1-2+) tricuspid valve insufficiency. Mild diffuse aortic valve thickening. Trivial aortic valve insufficiency. Trivial pulmonic valve insufficiency. Right ventricular systolic pressure estimated to be 44 mmHg. Diastolic function is indeterminate. Ordering Physician: Con Hernandez Referring Physician: Con Johnson MD Performed By: Gaby Bowman RDCS Rhythm Strip Rhythm Strip: Sinus Rhythm Rate: 78 Ectopy: None Physical Exam Const alert, oriented x3 and no apparent distress Constitutional Narrative: confusion resolved General Appearance: cooperative Orientation / Consciousness: awake HEENT normocephalic Cardio Peripheral Pulses: dorsalis pedis pulses present Extremity normal capillary refill and no calf tenderness Extremity Narrative: no cyanosis, no calf tenderness, diminished pulses muscle wasting noted. deep foot drainage site tenderness with decreased adjacent tissue palpation discomfort. No adjacent bogginess, fluctuance, or crepitus noted. stable chronic charcot deformity foot noted General Extremity: edema Left Lower Extremity: foot and digits Positive for inspection ( I & D site has resolution of purulence and erythema. no odor or necrosis. hematogenous drainage on dressing only. no crepitus on palpation or streaking.) and ROM (AROM digits bilateral) Skin Skin Narrative: no purulence, no erythema, no streaking, no odor, no infection. Adjacent skin is atrophic. Wound Narrative: skin discontinuity plantar arch with diffuse decreased erythema intensity w/ tracking to plantar medial midfoot. Purulence drainage noted today on expression without odor. no necrosis or eschar. no adjacent crepitus or bogginess on palpation. 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 Code(s): L97.523 - Non-pressure chronic ulcer of other part of left foot with necrosis of muscle (2) Cellulitis of left foot: Status: Acute Code(s): L03.116 - Cellulitis of left lower limb (3) Delayed wound healing: Status: Chronic Code(s): T14.8XXD - Other injury of unspecified body region, subsequent encounter (4) Other specified peripheral vascular diseases: Status: Chronic Code(s): I73.89 - Other specified peripheral vascular diseases (5) Charcot's joint of left foot: Status: Chronic Code(s): M14.672 - Charcot's joint, left ankle and foot (6) Type 2 diabetes mellitus with diabetic polyneuropathy: Status: Chronic Code(s): E11.42 - Type 2 diabetes mellitus with diabetic polyneuropathy Qualifiers: Diabetes mellitus half-way insulin use: with intermediate frame tender use Qualified Code(s): E11.42 - Type 2 diabetes mellitus with diabetic polyneuropathy; Z79.4 - superintendent container terminal (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 She is afebrile this morning and her vitals are stable. No leukocytosis is noted. There is no purulence or erythema. She has been on IV antibiotics (unasyn). Cultures from surgery with strep B. ID on consult. A wound vac ordered for today 150 mmHg continuous. Vascular surgery intervention will be rescheduled within the next 1-2 weeks in the outpatient setting with Dr. Pang. To maintain non weightbearing status. To work with PT / OT. 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 Plavix, enoxaparin, and aspirin are ordered. Pain medications ordered and her pain is in control today. I'll continue to follow her close while in house. Please call if questions. [facility] Sat at time of discharge. Ivanna Magana DPM, [facility] [phone]
[2020-09-23] MEDS: Ondansetron 4 MG/2 ML Vial IV (07:14)
[2020-09-23] MEDS: 0.9% Saline Lock 10 ML Syringe IV (07:15)
[2020-09-23] MEDS: 0.9% Normal Saline 1,000 ML 75 ML IV ×2 (07:48→20:30)
[2020-09-23] MEDS: Insulin Lispro 100 UNIT/ML INSULN.PEN 6 UNIT SC ×2 (07:59→11:28)
[2020-09-23] MEDS: morphine (oral solution) 10MG/0.5ML Syringe 6 MG PO ×2 (08:12→20:25)
[2020-09-23 08:16] LABS: Bedside Glucose 138 mg/dL (70-110)
--- NOTE | 2020-09-23 09:13 | PN.CARD_ITS ---
Objective Data Vital Signs: Vital Signs Temp Pulse Resp BP Pulse Ox 98.0 F 79 16 125/59 H 92 09/23/20 03:00 09/23/20 07:00 09/23/20 03:00 09/23/20 03:00 09/23/20 03:00 Oxygen Flow Rate (L/min) 2 Oxygen Delivery Method Room Air Weight: 179 lb 10.828 oz Body Mass Index (BMI) 29.9 Finger Stick Blood Glucose 193 Intake & Output: Intake and Output for Last 24 Hours 09/21/20 09/22/20 09/23/20 23:59 23:59 23:59 Intake Total 1730.5 / 1970.5 4474 / 4594 887 / 887 Output Total 900 / 1500 2725 / 3225 2075 / 2075 Balance 830.5 / 470.5 1749 / 1369 -1188 / -1188 Lab / Micro Data Result Diagrams: 09/23/20 04:55 09/23/20 04:55 Labs: Laboratory Results - last 24 hr 09/22/20 09/22/20 09/22/20 11:57 16:45 20:52 WBC RBC Hgb Hct MCV MCH MCHC RDW Std Deviation RDW Coeff of Marco Plt Count MPV Immature Gran % (Auto) Neut % (Auto) Lymph % (Auto) [place] % (Auto) Eos % (Auto) Baso % (Auto) Absolute Neuts (auto) Absolute Lymphs (auto) Nucleated RBC % Sodium Potassium Chloride Carbon Dioxide Anion Gap BUN Creatinine Estim Creat Clear Calc Est GFR (MDRD) Af Amer Est GFR (MDRD) Non-Af BUN/Creatinine Ratio Glucose Calcium POC Glucose 153 H 146 H 146 H 09/23/20 09/23/20 09/23/20 04:55 04:55 07:58 WBC 6.8 RBC 3.09 L Hgb 8.8 L Hct 27.9 L MCV 90.3 MCH 28.5 MCHC 31.5 L RDW Std Deviation 47.0 H RDW Coeff of Marco 14.3 Plt Count 208 MPV 9.6 Immature Gran % (Auto) 0.600 Neut % (Auto) 65.3 Lymph % (Auto) 20.8 [place] % (Auto) 8.9 Eos % (Auto) 4.1 Baso % (Auto) 0.3 Absolute Neuts (auto) 4.5 Absolute Lymphs (auto) 1.42 Nucleated RBC % 0 Sodium 140 Potassium 3.6 Chloride 114 H Carbon Dioxide 20.0 L Anion Gap 6 BUN 22 H Creatinine 1.13 H Estim Creat Clear Calc 39.90 Est GFR (MDRD) Af Amer 61 Est GFR (MDRD) Non-Af 50 L BUN/Creatinine Ratio 19.5 Glucose 60 L Calcium 8.1 L POC Glucose 138 H Micro: Microbiology 09/20/20 14:39 Tissue - Left Foot Gram Stain - Final 09/20/20 14:39 Tissue - Left Foot Wound Culture - Final Streptococcus agalactiae (B) 09/20/20 14:39 Tissue - Left Foot Anaerobic Culture - Final No anaerobic bacteria isolated. 09/19/20 20:15 Tissue Ulcer - Tissue Gram Stain - Final 09/19/20 20:15 Tissue Ulcer - Tissue Wound Culture - Final Streptococcus agalactiae (B) 09/19/20 20:15 Tissue Ulcer - Tissue Anaerobic Culture - Final No anaerobic bacteria isolated. 09/19/20 18:49 Blood Culture (Wb) - Right Hand Blood Culture - Preliminary No growth in 48 hours. 09/19/20 17:45 Blood Culture (Wb) - Anticubital Left - Final Streptococcus agalactiae (B) 09/19/20 17:45 Blood Culture (Wb) - Anticubital Left Blood Culture - Preliminary Streptococcus agalactiae (B) Rhythm Strip Rhythm Strip: Sinus Rhythm Rate: 78 Ectopy: None Cardiology Labs/Tests 09/23/20 04:55: WBC 6.8, RBC 3.09 L, Hgb 8.8 L, Hct 27.9 L, MCV 90.3, MCH 28.5, MCHC 31.5 L, Plt Count 208, MPV 9.6, Immature Gran % (Auto) 0.600, Neut % (Auto) 65.3, Lymph % (Auto) 20.8, [place] % (Auto) 8.9, Eos % (Auto) 4.1, Baso % (Auto) 0.3, Absolute Neuts (auto) 4.5, Nucleated RBC % 0 09/23/20 04:55: Sodium 140, Potassium 3.6, Chloride 114 H, Carbon Dioxide 20.0 L , Anion Gap 6, BUN 22 H, Creatinine 1.13 H, Est GFR (MDRD) Af Amer 61, Est GFR (MDRD) Non-Af 50 L, BUN/Creatinine Ratio 19.5, Glucose 60 L, Calcium 8.1 L Rhythm: Sinus rhythm Radiography Diagnostic Testing: Radiology Impression Echocardiogram 09/20/20 13:15 Interpretation Summary Left ventricular systolic function is normal. The estimated ejection fraction is 70 %. Sigmoid septum. The left atrium is mildly enlarged. There is mild mitral annular calcification. Mild diffuse mitral valve thickening. Mild (1+) mitral valve insufficiency. Mild to moderate (1-2+) tricuspid valve insufficiency. Mild diffuse aortic valve thickening. Trivial aortic valve insufficiency. Trivial pulmonic valve insufficiency. Right ventricular systolic pressure estimated to be 44 mmHg. Diastolic function is indeterminate. Ordering Physician: Con Hernandez Referring Physician: Con Johnson MD Performed By: Gaby Bowman RDCS Physical Exam Narrative The patient is awake and alert and in no acute distress. Const alert and oriented x3 Orientation / Consciousness: awake HEENT normocephalic and head/scalp atraumatic Eyes PERRL and EOMs intact bilaterally Neck full ROM and supple Chest inspection of chest normal Chest: midline sternotomy incision Resp normal respiratory effort and clear to auscultation bilaterally Cardio regular rate, regular rhythm, S1 normal heart sound and S2 normal heart sound Peripheral Pulses: brachial pulses present, radial pulses present and femoral pulses present GI normal to inspection, nondistended, normoactive bowel sounds Extremity Extremity Narrative: Left foot: Surgical wrap with Arjun dressing Neuro oriented x3 and moves all extremities Psych mental status grossly normal Assessment & Plan Assessment/Plan (1) Non-ST elevation (NSTEMI) myocardial infarction: Status: Acute Code(s): I21.4 - Non-ST elevation (NSTEMI) myocardial infarction Plan: The patient has signs and symptoms and objective findings compatible with an acute non-ST segment elevation PA. The patient has undergone evaluation with diagnostic cardiac catheterization. She was found to have left circumflex coronary artery in-stent restenosis. She subsequently underwent repeat PTCA/stent. She received what was considered a good angiographic result. She will continue medical therapy. (2) Coronary artery disease: Status: Chronic Code(s): I25.10 - Atherosclerotic heart disease of [place] coronary artery without angina pectoris Plan: The patient does have a history of underlying CAD. This is led to PCI and CABG. At the present time there are concerns of an acute non-ST segment elevation PA. The patient has undergone evaluation with cardiac catheterization. She underwent PTCA/stent of an LCx in-stent restenosis. At the present time she will continue medical management. (3) Stented coronary artery: Status: Chronic Code(s): Z95.5 - Presence of coronary angioplasty implant and graft Plan: The patient has undergone previous PCI in the past to the left coronary artery system including the left circumflex coronary artery. As noted above during her cardiac catheterization she was found to have evidence of LCx in-stent restenosis. She underwent repeat PTCA/stent with what was considered to be good angiographic result. She will continue medical management. (4) History of coronary artery bypass graft: Status: Chronic Code(s): Z95.1 - Presence of aortocoronary bypass graft Plan: She does have a history of CABG. During her cardiac catheterization her DANIEL to the LAD was patent. (5) Peripheral vascular disease: Status: Chronic Code(s): I73.9 - Peripheral vascular disease, unspecified Plan: She does have a history of peripheral vascular disease. The details are unknown at this time. She believes she needs reevaluation of this to assist with healing of her left foot lesion. (6) Hyperlipidemia: Status: Chronic Code(s): E78.5 - Hyperlipidemia, unspecified Plan: She will continue risk factor evaluation care. (7) Hypertension: Status: Chronic Code(s): I10 - Essential (primary) hypertension Plan: Her blood pressure be monitored with her medicines adjusted accordingly. (8) Diabetes mellitus type 2 in obese: Status: Chronic Code(s): E11.69 - Type 2 diabetes mellitus with other specified complication; E66.9 - Obesity, unspecified Plan: The patient will continue evaluation care per internal medicine. (9) Abscess of left foot: Status: Inactive Code(s): L02.612 - Cutaneous abscess of left foot Plan: The patient will continue evaluation care per internal medicine and podiatry. Addt'l Comments The patient will continue cardiovascular medical therapy with adjustment as deemed appropriate. This has included an attempt to simplify her sustained nitroglycerin use. She will continue to be monitored during her hospitalization for any additional concerns as needed. This note was generated with [employer] dictation software. It may contain incorrect words, spelling, and punctuation that were not noted in checking the note before signing.
--- NOTE | 2020-09-23 09:29 | NURSING ---
wound photo: left plantar foot
--- NOTE | 2020-09-23 09:30 | NURSING ---
wound photo: left plantar foot
--- NOTE | 2020-09-23 10:00 | EKG12_ITS ---
Test Reason : AM EKG Blood Pressure : / mmHG Vent. Rate : 077 BPM Atrial Rate : 077 BPM P-R Int : 186 ms QRS Dur : 096 ms QT Int : 400 ms P-R-T Axes : 064 -22 097 degrees QTc Int : 452 ms Normal sinus rhythm Nonspecific ST and T wave abnormality Abnormal ECG Confirmed by ALEJANDRO ANAYA, RODRIGUE ([id number]), sports editor CAMERON CALLES ([id number]) on 09/26/2020 12:32:37 PM Referred By: DR HUANG Confirmed By:RODRIGUE ALLEN MD
[2020-09-23] MEDS: Juven (unflavored) Packet 1 PACKET PO ×2 (10:07→17:16)
[2020-09-23] MEDS: Aspirin E.C. 81 MG Tablet PO (10:07)
[2020-09-23] MEDS: Pantoprazole Sodium 20 MG Tablet PO (10:07)
[2020-09-23] MEDS: Creon 24,000 unit DR Capsule 1 CAP PO ×2 (10:08→22:09)
[2020-09-23] MEDS: Calcium (Elemental) 500 MG Tablet PO ×2 (10:08→22:09)
[2020-09-23] MEDS: Multivitamins,Ther W-Minerals Tablet 1 TABLET PO ×2 (10:08→17:16)
[2020-09-23] MEDS: Allopurinol 100 MG Tablet PO (10:08)
[2020-09-23] MEDS: Clopidogrel Bisulfate 75 MG Tablet PO (10:08)
[2020-09-23] MEDS: amLODIPine 5 MG Tablet PO (10:08)
[2020-09-23] MEDS: Carvedilol 25 MG Tablet PO ×2 (10:08→22:09)
[2020-09-23] MEDS: Senna/Docusate Sodium 1 Tablet PO ×2 (10:08→22:09)
[2020-09-23] MEDS: Bisacodyl 5 MG Tablet 10 MG PO (11:27)
[2020-09-23] MEDS: guaiFENesin 600 MG Tablet PO ×2 (11:27→22:08)
[2020-09-23 11:35] LABS: Bedside Glucose 115 mg/dL (70-110)
[2020-09-23] MEDS: Polyethylene Glycol 3350 17 GM PACKET PO (12:04)
--- NOTE | 2020-09-23 12:21 | PCM.PN.ID ---
ID ID: Route of nutrition/ use of supplements: [] Nutritional Intake: [] IV Site: [] Maloney Catheter: [] Assessment & Plan Assessment/Plan (1) Diabetic infection of left foot: Status: Acute Code(s): E11.628 - Type 2 diabetes mellitus with other skin complications; L08.9 - Local infection of the skin and subcutaneous tissue, unspecified Plan: OR 09/[address] Magana, pus drained. On empiric vanc/zosyn. Recent cxs with MS-CoNS, enterococcus, strep. Surg cx all with GBS. 1 of 2 bcx with GBS. Will narrow to unasyn. Plan on long course of po abx at discharge (either augmentin or keflex). Heart cath yesterday. MRI showed no osteo. Will follow
--- NOTE | 2020-09-23 12:47 | CASEMGMT ---
Addendum entered by Sunni Cardoza 09/23/20 13:01: Received acceptance from [facility]. Pt to be seen on Saturday for start of care. Original Note: RN CM in to pt room to discuss dc planning. Pt now with wound vac. Pt wants to go home. Patient was provided a list of [facility] providers including quality and resource use data and consistent with the patient?s preferred geographic region, medical needs, and insurance network. The patient?s preferred provider [facility]. TC to surjit Rudolph to make referral. Left vm. Awaiting acceptance.
[2020-09-23] MEDS: tiZANidine HCl 2 MG Tablet 4 MG PO ×2 (13:08→23:22)
--- NOTE | 2020-09-23 13:46 | PCM.PN.ID ---
Physical Exam Narrative Feeling well, pain controlled, mild nausea Const alert General Appearance: cooperative Resp clear to auscultation bilaterally Cardio regular rate and regular rhythm GI normal to inspection, nondistended, normoactive bowel sounds Skin Skin Narrative: foot wrapped ID ID: Route of nutrition/ use of supplements: [] Nutritional Intake: [] IV Site: [] Maloney Catheter: [] Assessment & Plan Assessment/Plan (1) Diabetic infection of left foot: Status: Acute Code(s): E11.628 - Type 2 diabetes mellitus with other skin complications; L08.9 - Local infection of the skin and subcutaneous tissue, unspecified Plan: OR 09/[address] Magana, pus drained. Recent cxs with MS-CoNS, enterococcus, strep. Surg cx all with GBS. 1 of 2 bcx with GBS. Cont unasyn. Plan on 4 weeks po keflex 500mg tid at discharge, ID followup in 2 weeks. MRI showed no osteo. Will follow
[2020-09-23] MEDS: Dextrose 50%-Water 25 GM/50 ML DISP.SYRIN IV (14:39)
[2020-09-23 14:46] LABS: Bedside Glucose 41 mg/dL (70-110)
[2020-09-23 15:06] LABS: Bedside Glucose 202 mg/dL (70-110)
[2020-09-23 15:25] LABS: Glucose 202 mg/dL (74-106)
--- NOTE | 2020-09-23 15:51 | PN.HOSP_ITS ---
Subjective Subjective: complains of mucus and cough. Had BS drop down to 40s. Not eating much per nursing. Objective Data Objective Data Vital Signs: Vital Signs Temp Pulse Resp BP Pulse Ox 36.8 C 64 18 116/47 L 92 09/23/20 15:00 09/23/20 15:00 09/23/20 15:00 09/23/20 15:00 09/23/20 15:00 Oxygen Flow Rate (L/min) 2 Oxygen Delivery Method Nasal Cannula Weight: 81.5 kg Body Mass Index (BMI) 29.9 Finger Stick Blood Glucose 193 Intake & Output: Intake and Output for Last 24 Hours 09/21/20 09/22/20 09/23/20 23:59 23:59 23:59 Intake Total 1730.5 / 1970.5 4474 / 4594 1874 / 1874 Output Total 900 / 1500 2725 / 3225 3125 / 3125 Balance 830.5 / 470.5 1749 / 1369 -1251 / -1251 Lab / Micro Data Result Diagrams: 09/23/20 04:55 09/23/20 14:50 Labs: Laboratory Results - last 24 hr 09/22/20 09/22/20 09/23/20 16:45 20:52 04:55 WBC 6.8 RBC 3.09 L Hgb 8.8 L Hct 27.9 L MCV 90.3 MCH 28.5 MCHC 31.5 L RDW Std Deviation 47.0 H RDW Coeff of Marco 14.3 Plt Count 208 MPV 9.6 Immature Gran % (Auto) 0.600 Neut % (Auto) 65.3 Lymph % (Auto) 20.8 [place] % (Auto) 8.9 Eos % (Auto) 4.1 Baso % (Auto) 0.3 Absolute Neuts (auto) 4.5 Absolute Lymphs (auto) 1.42 Nucleated RBC % 0 Sodium Potassium Chloride Carbon Dioxide Anion Gap BUN Creatinine Estim Creat Clear Calc Est GFR (MDRD) Af Amer Est GFR (MDRD) Non-Af BUN/Creatinine Ratio Glucose Calcium POC Glucose 146 H 146 H 09/23/20 09/23/20 09/23/20 04:55 07:58 11:27 WBC RBC Hgb Hct MCV MCH MCHC RDW Std Deviation RDW Coeff of Marco Plt Count MPV Immature Gran % (Auto) Neut % (Auto) Lymph % (Auto) [place] % (Auto) Eos % (Auto) Baso % (Auto) Absolute Neuts (auto) Absolute Lymphs (auto) Nucleated RBC % Sodium 140 Potassium 3.6 Chloride 114 H Carbon Dioxide 20.0 L Anion Gap 6 BUN 22 H Creatinine 1.13 H Estim Creat Clear Calc 39.90 Est GFR (MDRD) Af Amer 61 Est GFR (MDRD) Non-Af 50 L BUN/Creatinine Ratio 19.5 Glucose 60 L Calcium 8.1 L POC Glucose 138 H 115 H 09/23/20 09/23/20 09/23/20 14:36 14:50 15:01 WBC RBC Hgb Hct MCV MCH MCHC RDW Std Deviation RDW Coeff of Marco Plt Count MPV Immature Gran % (Auto) Neut % (Auto) Lymph % (Auto) [place] % (Auto) Eos % (Auto) Baso % (Auto) Absolute Neuts (auto) Absolute Lymphs (auto) Nucleated RBC % Sodium Potassium Chloride Carbon Dioxide Anion Gap BUN Creatinine Estim Creat Clear Calc Est GFR (MDRD) Af Amer Est GFR (MDRD) Non-Af BUN/Creatinine Ratio Glucose 202 H Calcium POC Glucose 41 L* 202 H Micro: Microbiology 09/20/20 14:39 Tissue - Left Foot Gram Stain - Final 09/20/20 14:39 Tissue - Left Foot Wound Culture - Final Streptococcus agalactiae (B) 09/20/20 14:39 Tissue - Left Foot Anaerobic Culture - Final No anaerobic bacteria isolated. 09/19/20 20:15 Tissue Ulcer - Tissue Gram Stain - Final 09/19/20 20:15 Tissue Ulcer - Tissue Wound Culture - Final Streptococcus agalactiae (B) 09/19/20 20:15 Tissue Ulcer - Tissue Anaerobic Culture - Final No anaerobic bacteria isolated. 09/19/20 18:49 Blood Culture (Wb) - Right Hand Blood Culture - Preliminary No growth in 48 hours. 09/19/20 17:45 Blood Culture (Wb) - Anticubital Left - Final Streptococcus agalactiae (B) 09/19/20 17:45 Blood Culture (Wb) - Anticubital Left Blood Culture - Preliminary Streptococcus agalactiae (B) Radiography Diagnostic Testing: Radiology Impression Echocardiogram 09/20/20 13:15 Interpretation Summary Left ventricular systolic function is normal. The estimated ejection fraction is 70 %. Sigmoid septum. The left atrium is mildly enlarged. There is mild mitral annular calcification. Mild diffuse mitral valve thickening. Mild (1+) mitral valve insufficiency. Mild to moderate (1-2+) tricuspid valve insufficiency. Mild diffuse aortic valve thickening. Trivial aortic valve insufficiency. Trivial pulmonic valve insufficiency. Right ventricular systolic pressure estimated to be 44 mmHg. Diastolic function is indeterminate. Ordering Physician: Con Hernandez Referring Physician: Con Johnson MD Performed By: Gaby Bowman RDCS Rhythm Strip Rhythm Strip: Sinus Rhythm Rate: 78 Ectopy: None Physical Exam Const alert Resp normal respiratory effort and clear to auscultation bilaterally Cardio regular rate, S1 normal heart sound and S2 normal heart sound GI normal to inspection, nondistended, normoactive bowel sounds, non-tender and non-distended Assessment & Plan Assessment/Plan (1) Cellulitis of left foot: Status: Acute Code(s): L03.116 - Cellulitis of left lower limb Plan: No osteomyelitis noted on MRI DW Dr. Magana [facility]. Plan to take to [facility] given emergency and threat of limb. 09/20: incision and drainage left foot with debridement of devitalized subcutaneous and muscle tissue Culture showing group B strep ID following. Non-weight bearing. Changed her ampicillin/sulbactam. Tentatively looking at the oral antibiotics upon discharge. Patient complaining of pain but none currently. Patient was wanting something more for pain. States that she does not take morphine for pain but for rather to slow her bowel motility which she is actually constipated at this time. I told her I would continue with the morphine as it is not anything additional unless her pain is refractory to the morphine as she is prescribed at home. She did not seem satisfied and seem actually confused with but I spent extensive time explained this to her. Explained that she can take acetaminophen but she said that she cannot take acetaminophen due to her heart. I told her there is no contraindication to take acetaminophen for her heart. Then she said it was because of her being on Creon. I told her she is on Creon for pancreas and that would have no bearing on her pancreas. I did inquire if she does have cirrhosis to which she denied. And I told her there is no contraindication to her receiving acetaminophen. Overall greater than 35 minutes of which greater than 50% of time was counseling the patient about her pain medication, reviewing her morphine, Tylenol as well as her sleep aids with her. Per ID: 4 weeks of PO cephalexin 500 TID and 2 week follow up with ID. Wound vac (2) Non-ST elevation (NSTEMI) myocardial infarction: Status: Acute Code(s): I21.4 - Non-ST elevation (NSTEMI) myocardial infarction Plan: Secondary to in-stent stenosis. 09/21: had PCI to circumflex Meds: ASA, clopidogrel, carvedilol No statin given statin intolerance (3) Diabetes mellitus type 2 in obese: Status: Chronic Code(s): E11.69 - Type 2 diabetes mellitus with other specified complication; E66.9 - Obesity, unspecified Plan: Uncontrolled Continue glargine, Monitor for now. Held SSI and prandial. Not eating much. Cut back glargine monitor for now to ensure stability of MBS prior to DC given her limited mobilitiy (4) Peripheral vascular disease: Status: Chronic Code(s): I73.9 - Peripheral vascular disease, unspecified Plan: Arterial duplex on 09/07/2020: showed diminished flow and decreased in distal posterior tibial. Seen by Dr. Pang and pt is to follow up as outpt. Meds as for NSTEMI (5) Mechanical venous thromboembolism (VTE) prophylaxis in place: Status: Acute Code(s): Z78.9 - Other specified health status Plan: SCDs for now. Start chemical prophylaxis 09/22 and to be continued until weight bearing status increased. Visit Charges Inpatient E&M: 69544 Subs Hosp L2
[2020-09-23 16:51] LABS: Bedside Glucose 178 mg/dL (70-110)
[2020-09-23] MEDS: traZODone 100 MG Tablet PO (22:09)
[2020-09-23] MEDS: Pravastatin 40 MG Tablet PO (22:09)
[2020-09-23] MEDS: Levothyroxine 75 MCG Tablet PO (22:10)
[2020-09-23 22:20] LABS: Bedside Glucose 126 mg/dL (70-110)
[2020-09-24] VITALS (9 sets, daily range): BP systolic 137–166; BP diastolic 42–64; PULSE 64–74; RESP 14–18; TEMP 36.7–37.1; O2SAT 92–95
[2020-09-24] MEDS: Enoxaparin 40 MG/0.4 ML Syringe SC (05:22)
[2020-09-24] MEDS: Menthol/Lanolin/Calamine/Znox 113 GM Tube 1 APPLIC TOPICAL (05:22)
[2020-09-24] MEDS: Acetaminophen 500 MG Tablet 1000 MG PO (05:39)
[2020-09-24] MEDS: morphine (oral solution) 10MG/0.5ML Syringe 6 MG PO (08:08)
[2020-09-24] MEDS: Juven (unflavored) Packet 1 PACKET PO (08:12)
[2020-09-24] MEDS: Multivitamins,Ther W-Minerals Tablet 1 TABLET PO (08:13)
[2020-09-24] MEDS: Carvedilol 25 MG Tablet PO (08:13)
--- NOTE | 2020-09-24 08:13 | PN_ITS ---
Subjective Subjective: This 75 year old female was seen bedside for follow up of left foot infection now with resolution of infection signs and wound vac in place. Her pain is rated as 4/10. She denies fever, chills, nausea, vomiting, calf pain. Objective Data Objective Data Vital Signs: Vital Signs Temp Pulse Resp BP Pulse Ox 98.7 F 65 14 160/42 H 95 09/24/20 07:53 09/24/20 07:53 09/24/20 07:53 09/24/20 07:53 09/24/20 07:53 Oxygen Flow Rate (L/min) 4 Oxygen Delivery Method Nasal Cannula Weight: 179 lb 10.828 oz Body Mass Index (BMI) 29.9 Finger Stick Blood Glucose 193 Intake & Output: Intake and Output for Last 24 Hours 09/22/20 09/23/20 09/24/20 23:59 23:59 23:59 Intake Total 4474 / 4594 2613.5 / 2833.5 1073.25 / 1073.25 Output Total 2725 / 3225 3625 / 4025 1000 / 1000 Balance 1749 / 1369 -1011.5 / -1191.5 73.25 / 73.25 Lab / Micro Data Result Diagrams: 09/23/20 04:55 09/23/20 14:50 Labs: Laboratory Results - last 24 hr 09/23/20 09/23/20 09/23/20 07:58 11:27 14:36 Glucose POC Glucose 138 H 115 H 41 L* 09/23/20 09/23/20 09/23/20 14:50 15:01 16:43 Glucose 202 H POC Glucose 202 H 178 H 09/23/20 21:59 Glucose POC Glucose 126 H Micro: Microbiology 09/20/20 14:39 Tissue - Left Foot Gram Stain - Final 09/20/20 14:39 Tissue - Left Foot Wound Culture - Final Streptococcus agalactiae (B) 09/20/20 14:39 Tissue - Left Foot Anaerobic Culture - Final No anaerobic bacteria isolated. 09/19/20 20:15 Tissue Ulcer - Tissue Gram Stain - Final 09/19/20 20:15 Tissue Ulcer - Tissue Wound Culture - Final Streptococcus agalactiae (B) 09/19/20 20:15 Tissue Ulcer - Tissue Anaerobic Culture - Final No anaerobic bacteria isolated. 09/19/20 18:49 Blood Culture (Wb) - Right Hand Blood Culture - Preliminary No growth in 48 hours. 09/19/20 17:45 Blood Culture (Wb) - Anticubital Left - Final Streptococcus agalactiae (B) 09/19/20 17:45 Blood Culture (Wb) - Anticubital Left Blood Culture - Preliminary Streptococcus agalactiae (B) Rhythm Strip Rhythm Strip: Sinus Rhythm Rate: 78 Ectopy: None Physical Exam Const alert, oriented x3 and no apparent distress Constitutional Narrative: General Appearance: cooperative Orientation / Consciousness: awake HEENT normocephalic Cardio Peripheral Pulses: dorsalis pedis pulses present Extremity normal capillary refill and no calf tenderness Extremity Narrative: no cyanosis, no calf tenderness, diminished pulses muscle wasting noted. No adjacent bogginess, fluctuance, or crepitus noted. stable chronic charcot deformity foot noted General Extremity: edema Left Lower Extremity: foot and digits Positive for inspection ( I & D site has resolution of purulence and erythema. no odor or necrosis. hematogenous drainage on dressing only. no crepitus on palpation or streaking.) and ROM (AROM digits bilateral) Skin Skin Narrative: wound vac in place without strikethrough or evidence of leaking. 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 Code(s): L97.523 - Non-pressure chronic ulcer of other part of left foot with necrosis of muscle (2) Cellulitis of left foot: Status: Resolved Code(s): L03.116 - Cellulitis of left lower limb (3) Delayed wound healing: Status: Chronic Code(s): T14.8XXD - Other injury of unspecified body region, subsequent encounter (4) Other specified peripheral vascular diseases: Status: Chronic Code(s): I73.89 - Other specified peripheral vascular diseases (5) Charcot's joint of left foot: Status: Chronic Code(s): M14.672 - Charcot's joint, left ankle and foot (6) 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 She is afebrile this morning and her vitals are stable. No leukocytosis is noted. There is no purulence or erythema. She has been on IV antibiotics (unasyn). Cultures from surgery with strep B. ID on consult. A wound vac ordered for today 150 mmHg continuous. This is in place and will be changed 3 x / week. I reviewed plan with home health yesterday in preparation for her discharge home. Vascular surgery intervention will be rescheduled within the next 1-2 weeks in the outpatient setting with Dr. Pang. To maintain non weightbearing status. To work with PT / OT. Medical management, DVT prophylaxis, and cardiac management per hospitalist and silver solution mixer. Pain medications ordered and her pain is in control today. I'll continue to follow her close while in house. Please call if questions. [facility] Sat at time of discharge. Ivanna Magana DPM, FACFAS [facility] [phone]
[2020-09-24] MEDS: Aspirin E.C. 81 MG Tablet PO (08:14)
[2020-09-24] MEDS: Calcium (Elemental) 500 MG Tablet PO (08:14)
[2020-09-24] MEDS: guaiFENesin 600 MG Tablet PO (08:15)
[2020-09-24] MEDS: amLODIPine 5 MG Tablet PO (08:15)
[2020-09-24] MEDS: Polyethylene Glycol 3350 17 GM PACKET PO (08:16)
[2020-09-24] MEDS: Allopurinol 100 MG Tablet PO (08:17)
[2020-09-24] MEDS: Pantoprazole Sodium 20 MG Tablet PO (08:17)
[2020-09-24] MEDS: Clopidogrel Bisulfate 75 MG Tablet PO (08:17)
[2020-09-24] MEDS: Creon 24,000 unit DR Capsule 1 CAP PO (08:18)
[2020-09-24] MEDS: Senna/Docusate Sodium 1 Tablet PO (08:18)
--- NOTE | 2020-09-24 11:01 | PCM.DC ---
Discharge Instructions Outpatient Procedure Reason For Visit: DIABETIC FOOT INFECTION Follow Up Care Test Results: Test results from this visit will be discussed in further detail at your follow-up appointment, if applicable. Discharge Plan Admission Admit Date/Time: 09/19/20 19:39 Attending Provider: Con Hernandez Primary Care Provider: Con Johnson Consulting Providers: Ivanna Magana ; Aman Pang ; Adam Webb ; Master [place] Discharge Orders/Prescriptions Prescriptions: New guaifenesin [Mucus Relief ER] 600 mg Tablet Extended Release 12hr 600 mg PO BID Qty: 14 RF: 0 cephalexin 500 mg capsule 500 mg PO Q8H 28 Days Qty: 84 RF: 0 Continued Creon 24,000-76,000 -120,000 unit capsule,delayed release(DR/EC) 1 cap PO BID RF: 0 cbd 1 dose PO 4X/DAY PRN (Reason: pain/1500) RF: 0 aspirin [Adult Low Dose Aspirin] 81 mg tablet,delayed release (DR/EC) 81 mg PO DAILY RF: 0 pravastatin 40 MG tablet 40 mg PO QHS RF: 0 esomeprazole magnesium 40 MG capsule,delayed release(DR/EC) 20 mg PO DAILY RF: 0 allopurinol 100 MG tablet 100 mg PO DAILY RF: 0 calcium citrate 200 MG tablet 200 mg PO BID Qty: 0 RF: 0 melatonin 3 MG tablet 6 mg PO QHS RF: 0 levothyroxine 75 MCG tablet 75 mcg PO QHS RF: 0 venlafaxine 100 MG tablet 100 mg PO BID RF: 0 isosorbide mononitrate 60 MG tablet extended release 24 hr 120 mg PO DAILY RF: 0 trazodone 100 MG tablet 100 mg PO QHS PRN (Reason: Sleep) RF: 0 metoclopramide HCl 10 MG tablet 10 mg PO Q8H PRN (Reason: Nausea) RF: 0 utglwuliayfi-ukhs-eivoq acid 1 EACH tablet 0.5 tablet PO BID RF: 0 wheat dextrin 152 GM powder 15 ml PO DAILY RF: 0 linaclotide 72 MCG capsule 72 mcg PO DAILY RF: 0 carvedilol 25 MG tablet 25 mg PO BID RF: 0 insulin lispro 100 UNIT/ML insulin pen 8 unit SC BID RF: 0 acetaminophen 500 MG tablet 1,000 mg PO Q8H PRN PRN (Reason: Pain Score 1-3) Qty: 0 RF: 0 tizanidine 4 MG tablet 4 mg PO Q8H PRN PRN (Reason: Muscle Spasm) Qty: 20 RF: 0 nitroglycerin 0.4 MG bottle 0.4 mg SL TID PRN PRN (Reason: chest pain) RF: 0 morphine 10 MG/5 ML solution 3 ml PO Q6H PRN PRN (Reason: Pain 1-10 Or Fever) RF: 0 celecoxib 200 MG capsule 200 mg PO DAILY RF: 0 polyethylene glycol 3350 17 GM packet 17 gm PO DAILY RF: 0 nytfx-nwfx-NmOIK-xjcglj-yx-rhc 1 PACKET packet 1 packet PO BIDCM RF: 0 amlodipine 5 mg tablet 5 mg PO DAILY RF: 0 clopidogrel 75 mg tablet 75 mg PO DAILY Qty: 90 RF: 3 Changed insulin glargine 100 UNITS/ML insulin pen 15 unit SC BID Qty: 0 RF: 0 Discontinued isosorbide mononitrate 60 MG tablet extended release 24 hr 60 mg PO DAILY RF: 0 No Action sennosides-docusate sodium 1 TABLET tablet 1 tablet PO BID RF: 0 Referrals: Con Johnson MD [Primary Care Provider] - Within 2 Weeks Ivanna Magana DPM [STAFF PHYSICIAN] - 09/28/20 Adam Webb MD [STAFF PHYSICIAN] - Within 2 Weeks Disposition Patient Disposition: Home Health Service
--- NOTE | 2020-09-24 11:15 | DS.PCM_ITS ---
Providers Date of Admission: 09/19/20 Primary Care Physician: Dr. 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 Routine Comment: LEFT FOOT WOUND Physician Consult Routine Consulting Provider: Ivanna Magana Reason for Consult: DFU INFECTION Method of Consult:: In-Person Comments:: md notified in ed MD Notified: Yes Date Notified:: 09/19/20 Time Notified: 21:59 Method of Notification:: Verbal Physician Consult Routine Consulting Provider: Adam Webb Reason for Consult: DIABETIC FOOT INFECTION Method of Consult:: In-Person Comments:: completed by joanna MADISON MD Notified: Yes Date Notified:: 09/20/20 Time Notified: 06:45 Method of Notification:: Text 09/19/20 22:13 Physician Consult Routine Consulting Provider: Aman Pang Consulted Physician Type:: Other * Specify below * Reason for Consult: PVD, chronic ulcer Method of Consult:: In-Person Comments:: continuity of care: PVD with prior procedure scheduled MD Notified: Yes Date Notified:: 09/20/20 Time Notified: 09:21 Method of Notification:: Verbal 09/21/20 05:54 Consult: Cardiology Routine Consulting Provider: Master South Reason for Consult: nstemi EMERGENT Consult: Yes MD Notified: Yes Date Notified:: 09/21/20 Time Notified: 05:54 Method of Notification: Verbal Method of Consult:: In-Person Reason For Visit: DIABETIC FOOT INFECTION Diagnosis Discharge Diagnosis (1) 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 Code(s): L97.523 - Non-pressure chronic ulcer of other part of left foot with necrosis of muscle (2) Cellulitis of left foot: Status: Resolved Code(s): L03.116 - Cellulitis of left lower limb (3) Delayed wound healing: Status: Chronic Code(s): T14.8XXD - Other injury of unspecified body region, subsequent encounter (4) Other specified peripheral vascular diseases: Status: Chronic Code(s): I73.89 - Other specified peripheral vascular diseases (5) Charcot's joint of left foot: Status: Chronic Code(s): M14.672 - Charcot's joint, left ankle and foot (6) Type 2 diabetes mellitus with diabetic polyneuropathy: Status: Chronic Code(s): E11.42 - Type 2 diabetes mellitus with diabetic polyneuropathy Qualifiers: Diabetes mellitus medical terminologist insulin use: with jail use Qualified Code(s): E11.42 - Type 2 diabetes mellitus with diabetic polyneuropathy; Z79.4 - nursing home (current) use of insulin Medications at Discharge Home Medications pravastatin 40 mg PO QHS 03/10/17 amlodipine 5 mg tablet 5 mg PO DAILY tab 05/05/18 esomeprazole magnesium 20 mg PO DAILY 09/21/19 allopurinol 100 mg PO DAILY 03/17/20 calcium citrate 200 mg PO BID #0 03/17/20 aspirin 81 mg tablet,delayed release 81 mg PO DAILY 04/05/20 cbd 1 dose PO 4X/DAY PRN 04/05/20 fdgowg-emuamjid-yufnsck 24,000-76,000-120,000 unit capsule,delayed rel 1 cap PO BID cap 04/05/20 carvedilol 25 mg PO BID 08/17/20 isosorbide mononitrate 120 mg PO DAILY 08/17/20 levothyroxine 75 mcg PO QHS 08/17/20 linaclotide 72 mcg PO DAILY 08/17/20 melatonin 6 mg PO QHS 08/17/20 metoclopramide HCl 10 mg PO Q8H PRN 08/17/20 lamrkxpezvum-nvqv-exled acid 0.5 tablet PO BID 08/17/20 trazodone 100 mg PO QHS PRN 08/17/20 venlafaxine 100 mg PO BID 08/17/20 wheat dextrin 15 ml PO DAILY 08/17/20 insulin lispro 8 unit SC BID 08/22/20 acetaminophen 1,000 mg PO Q8H PRN PRN #0 tablet 09/09/20 tizanidine 4 mg PO Q8H PRN PRN #20 tablet 09/09/20 clopidogrel 75 mg tablet 75 mg PO DAILY #90 tablet 09/16/20 ybmqt-mctf-WwEXC-chusjh-mv-ued 1 packet PO BIDCM 09/19/20 celecoxib 200 mg PO DAILY 09/19/20 morphine 3 ml PO Q6H PRN PRN 09/19/20 nitroglycerin 0.4 mg SL TID PRN PRN 09/19/20 polyethylene glycol 3350 17 gm PO DAILY 09/19/20 sennosides-docusate sodium 1 tablet PO BID 09/19/20 cephalexin 500 mg PO Q8H 28 Days #84 cap 09/24/20 guaifenesin [Mucus Relief ER] 600 mg PO BID #14 tab 09/24/20 insulin glargine 15 unit SC BID #0 ml 09/24/20 Hospital Course Operations - (incision and drainage left foot with debridement of devitalized subcutaneous and muscle tissue) Procedures 2-D Echocardiogram and Cardiac catheterization Summary of Care Provided Minutes Spent on Discharge: 40 Hospital Course: Presents with cellulitis of her foot. Patient did undergo an MRI that did did not show osteomyelitis. Patient underwent incision and drainage of the left foot with debridement of devitalized subcutaneous and muscle tissue. Patient did have slight bump in her troponin prior to this procedure and did discuss with podiatry about this. They felt that it was an emergent procedure and proceeded with it. Afterwards, patient troponin did go up and patient was seen by cardiology and patient was taken for heart catheterization and had an in-stent stenosis. Patient had not been eating much he did have some hypoglycemia on the . Patient's insulin glargine was cut back from -. Patient will continue with that dose moving forward. But patient advised to contact her primary care physician in regards to her blood sugars and struck to keep a log of that. Patient was seen by infectious disease who recommended cephalexin 503 times daily for 4 weeks. Cultures came back growing group B strep. Physical Exam Const alert and oriented x3 Neck no lymphadenopathy Resp normal respiratory effort, no use of accessory muscles and clear to auscultation bilaterally Cardio regular rate, regular rhythm, S1 normal heart sound and S2 normal heart sound ABG / Lab / Microbiology Data Result Diagrams: 09/23/20 04:55 09/23/20 14:50 Laboratory: Laboratory Results - last 24 hr 09/23/20 09/23/20 09/23/20 11:27 14:36 14:50 Glucose 202 H POC Glucose 115 H 41 L* 09/23/20 09/23/20 09/23/20 15:01 16:43 21:59 Glucose POC Glucose 202 H 178 H 126 H Microbiology: Microbiology 09/20/20 14:39 Tissue - Left Foot Gram Stain - Final 09/20/20 14:39 Tissue - Left Foot Wound Culture - Final Streptococcus agalactiae (B) 09/20/20 14:39 Tissue - Left Foot Anaerobic Culture - Final No anaerobic bacteria isolated. 09/19/20 20:15 Tissue Ulcer - Tissue Gram Stain - Final 09/19/20 20:15 Tissue Ulcer - Tissue Wound Culture - Final Streptococcus agalactiae (B) 09/19/20 20:15 Tissue Ulcer - Tissue Anaerobic Culture - Final No anaerobic bacteria isolated. 09/19/20 18:49 Blood Culture (Wb) - Right Hand Blood Culture - Preliminary No growth in 48 hours. 09/19/20 17:45 Blood Culture (Wb) - Anticubital Left - Final Streptococcus agalactiae (B) 09/19/20 17:45 Blood Culture (Wb) - Anticubital Left Blood Culture - Preliminary Streptococcus agalactiae (B) D/C Instructions Discharge Diet: 1800 Calorie Control Diet Meaningful Use Info Meaningful Use Diagnoses (Choose all that apply): AMI AMI/Post PCI/Angioplasty Aspirin given w/in 24hrs of arrival?: Yes ASA at discharge?: Yes Antiplatelet Therapy at Discharge:: Yes Statins at discharge?: No Reason statins not ordered:: Allergy Arjun/ARB at discharge?: No Reason Arjun/ARB not ordered:: Worsening renal dysfunctn Beta Marine at discharge?: Yes Done w/ Acute AR measure.: Yes Documented LVEF (%): 70 Discharge Plan Admission Admit Date/Time: 09/19/20 19:39 Attending Provider: Con Hernandez Primary Care Provider: Con Johnsno Consulting Providers: Ivanna Magana ; Aman Pang ; Adam Webb ; Master South Discharge Orders/Prescriptions Prescriptions: New guaifenesin [Mucus Relief ER] 600 mg Tablet Extended Release 12hr 600 mg PO BID Qty: 14 RF: 0 cephalexin 500 mg capsule 500 mg PO Q8H 28 Days Qty: 84 RF: 0 Continued Creon 24,000-76,000 -120,000 unit capsule,delayed release(DR/EC) 1 cap PO BID RF: 0 cbd 1 dose PO 4X/DAY PRN (Reason: pain/1500) RF: 0 aspirin [Adult Low Dose Aspirin] 81 mg tablet,delayed release (DR/EC) 81 mg PO DAILY RF: 0 pravastatin 40 MG tablet 40 mg PO QHS RF: 0 esomeprazole magnesium 40 MG capsule,delayed release(DR/EC) 20 mg PO DAILY RF: 0 allopurinol 100 MG tablet 100 mg PO DAILY RF: 0 calcium citrate 200 MG tablet 200 mg PO BID Qty: 0 RF: 0 melatonin 3 MG tablet 6 mg PO QHS RF: 0 levothyroxine 75 MCG tablet 75 mcg PO QHS RF: 0 venlafaxine 100 MG tablet 100 mg PO BID RF: 0 isosorbide mononitrate 60 MG tablet extended release 24 hr 120 mg PO DAILY RF: 0 trazodone 100 MG tablet 100 mg PO QHS PRN (Reason: Sleep) RF: 0 metoclopramide HCl 10 MG tablet 10 mg PO Q8H PRN (Reason: Nausea) RF: 0 bmoprolhsmhv-rdsh-fpped acid 1 EACH tablet 0.5 tablet PO BID RF: 0 wheat dextrin 152 GM powder 15 ml PO DAILY RF: 0 linaclotide 72 MCG capsule 72 mcg PO DAILY RF: 0 carvedilol 25 MG tablet 25 mg PO BID RF: 0 insulin lispro 100 UNIT/ML insulin pen 8 unit SC BID RF: 0 acetaminophen 500 MG tablet 1,000 mg PO Q8H PRN PRN (Reason: Pain Score 1-3) Qty: 0 RF: 0 tizanidine 4 MG tablet 4 mg PO Q8H PRN PRN (Reason: Muscle Spasm) Qty: 20 RF: 0 nitroglycerin 0.4 MG bottle 0.4 mg SL TID PRN PRN (Reason: chest pain) RF: 0 morphine 10 MG/5 ML solution 3 ml PO Q6H PRN PRN (Reason: Pain 1-10 Or Fever) RF: 0 celecoxib 200 MG capsule 200 mg PO DAILY RF: 0 polyethylene glycol 3350 17 GM packet 17 gm PO DAILY RF: 0 jigmw-gozw-OvCTE-hmljzm-xj-gen 1 PACKET packet 1 packet PO BIDCM RF: 0 amlodipine 5 mg tablet 5 mg PO DAILY RF: 0 clopidogrel 75 mg tablet 75 mg PO DAILY Qty: 90 RF: 3 Changed insulin glargine 100 UNITS/ML insulin pen 15 unit SC BID Qty: 0 RF: 0 Discontinued isosorbide mononitrate 60 MG tablet extended release 24 hr 60 mg PO DAILY RF: 0 No Action sennosides-docusate sodium 1 TABLET tablet 1 tablet PO BID RF: 0 Referrals: Con Johnson MD [Primary Care Provider] - Within 2 Weeks Fascione,Ivanna, DPM [STAFF PHYSICIAN] - 09/28/20 Adam Webb MD [STAFF PHYSICIAN] - Within 2 Weeks Disposition Patient Disposition: Home Health Service Visit Charges Inpatient E&M: 87171 Disch Hosp
[2020-09-24 11:31] LABS: Bedside Glucose 185 mg/dL (70-110)
--- NOTE | 2020-09-24 14:35 | NURSING ---
discharged per wheelchair with portable wound vac attached to lt foot, with wound vac supplies, discharge instructions & scripts in care of
--- NOTE | 2020-09-24 14:45 | NURSING ---
wound vac removed critical access hospital informed Ref#[id number]
--- NOTE | 2020-09-26 13:58 | CASEMGMT ---
GRICELDA REED Discharge Follow Up Phone Call: SHAQUILLE: Fam Strata: 3 Call Date: 09/26/20 Discharge Date: 09/24/20 Time of Call: [id number] Duration: 3 min Admitting Dx: diabetic foot infection GRICELDA REED completed follow up phone call after recent hospitalization. Pt states she is doing well since being home. She was able to pickling solution maker her rx without difficulties. [facility] nurse was out today to change the wound vac. Pt has made all of her follow up appts with doctors. Pt denies any questions regarding dc instructions or medications.
== END 2020-09-24 14:35 | disposition home health service (06) | DRG 622 ==
LOC: ED 16:13 → PCU 23:20
PROVIDERS: Anesthesiology; Internal Medicine Interventional Cardiology; Podiatrist; Admitting Provider Hospitalist; Emergency Provider Emergency Medicine; PCP Family Medicine
PROC: 0KBW0ZZ Excision of Left Foot Muscle, Open Approach (ICD-10-PCS; principal; 2020-09-20 13:20)
DX: E11.621 Type 2 diabetes mellitus with foot ulcer (principal); I21.4 Non-ST elevation (NSTEMI) myocardial infarction; L03.116 Cellulitis of left lower limb; L02.612 Cutaneous abscess of left foot; L97.423 Non-pressure chronic ulcer of left heel and midfoot with necrosis of muscle; E87.1 Hypo-osmolality and hyponatremia; T82.855A Stenosis of coronary artery stent, initial encounter; I25.110 Atherosclerotic heart disease of native coronary artery with unstable angina pectoris; E11.628 Type 2 diabetes mellitus with other skin complications; K59.03 Drug induced constipation; T40.2X5A Adverse effect of other opioids, initial encounter; E86.1 Hypovolemia; I12.9 Hypertensive chronic kidney disease with stage 1 through stage 4 chronic kidney disease, or unspecified chronic kidney disease; E11.22 Type 2 diabetes mellitus with diabetic chronic kidney disease; N18.31 Chronic kidney disease, stage 3a; B95.1 Streptococcus, group B, as the cause of diseases classified elsewhere; N17.9 Acute kidney failure, unspecified; E11.65 Type 2 diabetes mellitus with hyperglycemia; E11.51 Type 2 diabetes mellitus with diabetic peripheral angiopathy without gangrene; E11.42 Type 2 diabetes mellitus with diabetic polyneuropathy; E11.610 Type 2 diabetes mellitus with diabetic neuropathic arthropathy; E11.649 Type 2 diabetes mellitus with hypoglycemia without coma; E03.9 Hypothyroidism, unspecified; E78.5 Hyperlipidemia, unspecified; Y83.8 Other surgical procedures as the cause of abnormal reaction of the patient, or of later complication, without mention of misadventure at the time of the procedure; Y92.9 Unspecified place or not applicable; M1A.9XX0 Chronic gout, unspecified, without tophus (tophi); M81.0 Age-related osteoporosis without current pathological fracture; K58.9 Irritable bowel syndrome, unspecified; K21.9 Gastro-esophageal reflux disease without esophagitis; F32.9 Major depressive disorder, single episode, unspecified; F41.9 Anxiety disorder, unspecified; E66.09 Other obesity due to excess calories; Z68.31 Body mass index [BMI] 31.0-31.9, adult; Z79.82 Long term (current) use of aspirin; Z79.02 Long term (current) use of antithrombotics/antiplatelets; Z79.4 Long term (current) use of insulin; Z79.1 Long term (current) use of non-steroidal anti-inflammatories (NSAID); Z79.890 Hormone replacement therapy; Z79.899 Other long term (current) drug therapy; Z86.73 Personal history of transient ischemic attack (TIA), and cerebral infarction without residual deficits; Z86.718 Personal history of other venous thrombosis and embolism; Z95.1 Presence of aortocoronary bypass graft; Z98.84 Bariatric surgery status
CPT/HCPCS: 36415; 71045; 73630; 73718; 80048; 80053; 80202; 81001; 82009; 82947; 82962; 83036; 83605; 83690; 84443; 84484; 85025; 85027; 85652; 85730; 86140; 87015; 87040; 87070; 87075; 87077; 87102; 87116; 87149; 87176; 87186; 87205; 87206; 87640; 92921; 92928; 93005; 93306; 93459; 97110; 97162; 97166; 97802; 99152; 99153; 99285; C1725; J7030; J7040; J7050; Q9957; Q9967; A4216; C1769; C1874; C1887; C9600; J0295; J2405

== ENCOUNTER → 2020-09-19 18:22 | Outpatient (CLI) | payer MEDICARE, OTHER, SELFPAY ==
[2020-09-19 14:42] VITALS: BMI 29.2
[2020-09-19 20:00] LABS: M R Staph aureus DNA By PCR Negative (Negative); Probe Check PASS; Specimen Processing Control PASS; Staph aureus DNA By PCR NEGATIVE (Negative)
== END ==
PROVIDERS: PCP Family Medicine; Referring Provider Podiatrist; Visit Provider Podiatrist
DX: L03.90 Cellulitis, unspecified (principal); L97.509 Non-pressure chronic ulcer of other part of unspecified foot with unspecified severity
CPT/HCPCS: 87070; 87075; 87077; 87205; 87640

== ENCOUNTER → 2020-10-17 16:06 | Outpatient (CLI) | payer MEDICARE, OTHER, SELFPAY ==
[2020-10-12 14:24] VITALS: BMI 29.6
--- NOTE | 2020-10-17 16:11 | RAD_ITS ---
STUDY: X-RAY - LEFT ANKLE REASON FOR EXAM: Female, 75 years old. Pain. TECHNIQUE: 3 view(s) of the ankle. COMPARISON: None. FINDINGS: Normal visualized distal tibia and fibula. Normal medial and lateral malleoli. Normal tibiotalar articulation and ankle mortise. Normal visualized talus and calcaneus. There is arthrosis of visualized subtalar, talonavicular, calcaneocuboid and tarsal articulations with flattening of the lordosis. The tarsometatarsal joints are incompletely visualized. The soft tissue structures are unremarkable. RAD/Ankle min 3 Views IMPRESSION: Deformity of the mid foot. There is no fracture or dislocation of left ankle. Electronically Signed: Edis Campos DO at 16:00 EDT Tel [phone], Service support ,
--- NOTE | 2020-10-17 16:11 | RAD_ITS ---
STUDY: X-RAY - LEFT FOOT CLINICAL: Female, 75 years old. Pain. Wound on the bowel of the foot. History of Charcot disease. TECHNIQUE: 3 left foot, 09/19/2020. view(s) of the foot. COMPARISON: None. FINDINGS: Normal talus, calcaneus, and tarsal bones. Arthrosis on the visualized subtalar, talonavicular, calcaneocuboid, tarsal and tarsometatarsal articulations. There is collapse of the midfoot with pes planus deformity unchanged from prior exam. There is demineralization of the metatarsi. Normal metatarsophalangeal joint of the great toe. Normal tibial and fibular sesamoid bones. Normal interphalangeal joint of the great toe. Normal phalanges of the great toe. Normal second through fifth metatarsophalangeal joints. Normal interphalangeal joints and phalanges of the lesser toes. There is diffuse soft tissue swelling. No is seen in the plantar aspect of the foot beneath the tarsometatarsal joints. RAD/Foot min 3 Views IMPRESSION: 1. Severe degenerative changes of the foot, stable when compared to the previous examination. 2. Soft tissue wound along the plantar aspect of the midfoot. Electronically Signed: Edis Campos DO at 16:02 EDT Tel [phone], Service support ,
== END ==
PROVIDERS: PCP Family Medicine; Referring Provider Podiatrist; Visit Provider Podiatrist
DX: M25.572 Pain in left ankle and joints of left foot (principal)
CPT/HCPCS: 73610; 73630

== ENCOUNTER 2020-10-19 14:45 | Outpatient (RCR) | payer MEDICARE, OTHER, SELFPAY ==
[2020-08-22 17:50] VITALS: BMI 31.4
[2020-08-25 00:36] VITALS: BP 144/53; PULSE 66; RESP 20; TEMP 36.4
[2020-09-20 10:41] VITALS: BMI 29.9
[2020-09-28 10:22] VITALS: BP 153/66; PULSE 97; RESP 18; TEMP 36.1; BMI 29.9
--- NOTE | 2020-09-28 15:33 | PCM.WC.PN ---
History of Present Illness Date of Service: 09/30/20 Chief Complaint: Left foot History of Wound: This is 75-year-old female with diabetic neuropathy history of Charcot left foot with rocker-bottom deformity, coronary artery disease and other comorbidities has a recurrent ulcer. She denies fever, chill, nausea, vomiting. She has had delayed healing of her plantar foot ulcer secondary to rocker-bottom Charcot foot deformity, recurrent ulcers and infections. She was recently admitted to the hospital for a left foot infection and underwent incision and drainage with debridement. She is been treated with antibiotics under the management of infectious disease and is currently treated with a wound VAC. Is also noted she had a recent heart attack during her hospitalization. She also had to repeat schedule her arterial vascular intervention procedure due to her recent hospitalization. 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 Debridement was performed as noted. To continue wound VAC continues on 150 mmHg. Cultures from surgery with strep B. ID on consult. Complete cephalexin 500 mg q 8 hrs. To follow up as advised with Dr. Webb. Vascular surgery intervention will be rescheduled within the next 1-2 weeks in the outpatient setting with Dr. Pang. To confirm intervention date. She is going for cardiac outpatient follow up this Saturday. To maintain non weightbearing status with the use of assistive devices (knee roller/walker). Pain controlled with home pain medication regimen per PCP. To continue nutritional supplementation to optimize healing. F/u wound care center 1 week. I answered all of her questions. Note: [employer] speech recognition transcription typist software was used to create portions of this document. Sound-alike and misspelled words, as well as other transcription typist errors may be contained in the documentation. This patient 13 minutes was spent on this encounter. This included face to face and non face to face care including preparing for the visit, reviewing the history, performing the exam, counseling and providing education to the patient, family, or caregiver, ordering medications/test/ procedures if indicated as documented, communicating with other healthcare providers, documenting information in the medical record, interpreting / sharing this information when indicated as documented, and care coordination. -----macra 2020: Medications and allergies were reviewed and reconciled. Her blood pressure is elevated at 153/66. To follow-up with primary care physician. She understands diet, activity, and potential medication adjustments contribute to controlled blood pressure. Physical Exam Const alert and oriented x3 General Appearance: cooperative HEENT normocephalic Extremity Extremity Narrative: No calf tenderness Diminished pulses Muscle wasting noted No fluctuance or bogginess General Extremity: edema and no tenderness to palpation of joints or extremities; Negative for cyanosis Skin Skin Narrative: no purulence, no streaking, no odor, no infection. Granular and healthy muscle and tendon tissue was exposed to the plantar left foot without deep space purulence on expression. Skin adjacent is atrophic General Skin Exam: Negative for erythema Neuro Neuro Narrative: lack of normal epicritic sensation via light touch is consistent with neuropathy status Psych cooperative and affect normal Debridement Note Debridement Note Post-Debridement Measurements and Additional Note: Predebridement plantar left foot measures 2.7 x 5.4 x 1.4 cm Post-Debridement Measurements/Treatment WC - Nurse 2 - General Ulcer CM Notes Start: 09/28/20 10:22 Freq: Status: Active Protocol: Activity Type Activity Date Activity User E-Sign Co-Sign Detail Recorded Client Recorded Date Recorded By Document 09/28/20 10:39 EULOGIO [id number] 09/28/20 10:43 EULOGIO 09/28/20 10:39 Wound Center Nurse 2 8. L foot plantar post op -Time 10:39 -Correct Patient Yes -Correct Side, Site, Position Yes -Correct Procedure Yes -Procedure Performed Yes -Type of Procedure Debridement -Clinical Debridement Subcutaneous -Tissue Removed Subcutaneous -Post Debridement (cm) - Length 2.8 -Post Debridement (cm) - Width 5.5 -Post Debridement (cm) - Depth 1.4 -Total Square (Post) (cm) 15.40 -Area of Debridement (cm) - Length 2.8 -Area of Debridement (cm) - Width 5.5 -Total Square (Area) (cm) 15.40 -Tunneling No -Undermining/Tunneling No -Circular Undermining No -Wound/Ulcer Outcome Not Healed -Ulcer Cleansing Rinsed/ Irrigated with Saline -Foul Odor after Cleansing No -Bioengineered Tissue No -Bleeding Controlled with Pressure -Offloading Yes -Type of Offloading Knee Walker -Treatment Response Procedure Tolerated Well -Debridement - Subq, 1st 20sq cm Yes Pain Scale: 0-10 Numeric Is Patient Pain Free? Yes Wound debrided: plantar left foot Wound Grade/Stage: 3 Type of Debridement: Excisional debridement Anesthesia Used: 4% Lidocaine Solution Depth: in the subcutaneous layer Percentage of wound debrided: 100 Instrument Used: #15 blade Tissue Removed: fibrous, devitalized subcutaneous, biofilm, slough Severity: Fat Layer Exposed Amount of bleeding with debridement: Mild Bleeding Controlled with: Pressure Patient tolerated procedure: Patient tolerated procedure well
[2020-10-05 12:59] VITALS: BP 107/59; PULSE 77; RESP 16; TEMP 36.2; BMI 29.9
--- NOTE | 2020-10-05 13:48 | PCM.WC.PN ---
History of Present Illness Date of Service: 10/05/20 Chief Complaint: Left foot right heel History of Wound: This is 75-year-old female with diabetic neuropathy history of Charcot left foot with rocker-bottom deformity, coronary artery disease and other comorbidities has a recurrent ulcer. She denies fever, chill, nausea, vomiting. She has had delayed healing of her plantar foot ulcer secondary to rocker-bottom Charcot foot deformity, recurrent ulcers and infections. She was recently admitted to the hospital for a left foot infection and underwent incision and drainage with debridement. She is been treated with antibiotics under the management of infectious disease and is currently treated with a wound VAC. Is also noted she had a recent heart attack during her hospitalization. She rescheduled her lower extremity vascular surgery intervention procedure for this upcoming Saturday at [facility] with Dr. Pang. She denies redness, odor and reports decreased left foot pain. She also has a right heel ulcer which she has been applying hydrogel. She wears a cloth foam boot to reduce pressure. Progress of Wound: stable right and left Objective Data Objective Data Vital Signs: Vital Signs Temp Pulse Resp BP 97.2 F L 77 16 107/59 L 10/05/20 12:59 10/05/20 12:59 10/05/20 12:59 10/05/20 12:59 Body Mass Index (BMI) 29.9 Finger Stick Blood Glucose 193 Assessment & Plan Assessment/Plan (1) Cellulitis of left foot: (2) 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: (3) Delayed wound healing: (4) Other specified peripheral vascular diseases: (5) Charcot's joint of left foot: (6) Type 2 diabetes mellitus with diabetic polyneuropathy: QUALIFIERS: Diabetes mellitus senior care insulin use: with adjunct faculty for medical terminology use Qualified Code(s): E11.42 - Type 2 diabetes mellitus with diabetic polyneuropathy; Z79.4 - intermediate project manager (current) use of insulin (7) Ulcer of right foot with fat layer exposed: PLAN: Procedure- Location: right posterior heel grade 1 Excisional debridement performed Anesthesia: 5% lidocaine plain Debridement layer: subcutaneous Amount of debridement: 100% Instrumentation used: 15 blade Tissue debrided: fibrous, devitalized subcutaneous, biofilm, slough Exposed tissue: fat layer Bleeding: mild Hemostasis controlled: pressure The patient tolerated the procedure well. I reviewed and discussed her case. Debridement was performed as noted bilateral. To continue wound VAC continues on 150 mmHg left 3 times a week. To change right heel dressing daily with Aquacel Ag. To wash adjacent sites with soap and water. Cultures from surgery with strep B. ID on consult. Complete cephalexin 500 mg q 8 hrs. To follow up as advised with Dr. Webb. Vascular surgery intervention was rescheduled for this upcoming Saturday at [facility] with Dr. Pang. It is noted she also had recent cardiac intervention during her last hospitalization at [facility]. To maintain non weightbearing status with the use of assistive devices (knee roller/walker) left lower extremity. I recommend she hangs her right heel over stacked pillows or blankets while seated or laying down. She has a cloth boot and I am not sure this is appropriate. She will bring this in for evaluation next week. Pain controlled with home pain medication regimen per PCP. To continue nutritional supplementation to optimize healing. She is taking Blue and has also been trying to eat more fresh foods. She is working on more detailed diet planning with her primary care physician. F/u wound care center 1 week. I answered all of her questions. Note: [employer] speech recognition abattoir manager software was used to create portions of this document. Sound-alike and misspelled words, as well as other abattoir manager errors may be contained in the documentation. 11 minutes was spent on this encounter. This included face to face and non face to face care including preparing for the visit, reviewing the history, performing the exam, counseling and providing education to the patient, family, or caregiver, ordering medications/test/ procedures if indicated as documented, communicating with other healthcare providers, documenting information in the medical record, interpreting / sharing this information when indicated as documented, and care coordination. -----macra 2020: Medications and allergies were reviewed and reconciled. Her blood pressure is normal at 107/59. Physical Exam Const alert and oriented x3 General Appearance: cooperative HEENT normocephalic Extremity Extremity Narrative: No calf tenderness Diminished pulses Muscle wasting noted No fluctuance or bogginess General Extremity: edema and no tenderness to palpation of joints or extremities; Negative for cyanosis Skin Skin Narrative: no purulence, no streaking, no odor, no infection. Granular and devitalized tendon/muscle tissue was exposed to the plantar left foot without deep space purulence on expression. Right posterior heel is granular and fibrous base without exposed tendon or bone. Skin adjacent is atrophic General Skin Exam: Negative for erythema Neuro Neuro Narrative: lack of normal epicritic sensation via light touch is consistent with neuropathy status Psych cooperative and affect normal Debridement Note Debridement Note Post-Debridement Measurements and Additional Note: Post-Debridement Measurements/Treatment WC - Nurse 1 - General Ulcer Assessment Start: 09/28/20 10:22 Freq: Status: Active Protocol: EUGENE Activity Type Activity Date Activity User E-Sign Co-Sign Detail Recorded Client Recorded Date Recorded By Document 09/28/20 10:22 RB [id number] 09/28/20 10:28 RB Document 10/05/20 12:59 MS [id number] 10/05/20 13:13 MS 09/28/20 10/05/20 10:22 12:59 WC - Today's Visit Information Type of service Follow-up Visit Follow-up Visit (Physician/TAR ROOFER (Physician/TAR ROOFER ) ) Arrival Mode Wheelchair Wheelchair Transfer Assistance Manual Patient Identification Verified (Name & Yes Yes ) Patient Requires Transmission-Based No No Precautions Safety Precautions NA Finger Stick Blood Sugar(mg/dl) (if 200 indicated): Blood Sugar Stated by Patient Height and Weight Body Mass Index (BMI) 29.9 29.9 BMI Classification Overweight Overweight Vital Signs Temperature (97.8 F-99.1 F) 97 F L 97.2 F L Temperature Source Temporal Temporal Pulse Rate (60-100) 97 77 Pulse Location Monitor Monitor Respiratory Rate (12-18) 18 16 Respiratory rate source Observation Observation Blood Pressure (90/60-120/80) 153/66 H 107/59 L Blood Pressure Mean (mm Hg) 95 75 Source Monitor Monitor Position Semi-Fowlers Sitting Blood Pressure Location Left Arm Left Arm History Since Last Visit- (Skip if this is Patient's initial visit) Have you changed medications since your No No last visit? Any new allergies or adverse reactions No No Had a fall/change in ADL's that may No No increase risk of falls Signs or symptoms of abuse and/or No No neglect since last visit Have you been in the hospital since your No No last visit? Has dressing in place as prescribed Yes Yes Has compression in place as prescribed No N/A Has offloadiing in place as prescribed Yes N/A Experienced any changes in pain level or No Yes management Left Footwear Surgical Shoe with pressure relief insole Right Footwear Regular Shoe WC - Nurse 1 - General Ulcer Measurement Start: 09/28/20 10:22 Freq: Status: Active Protocol: Activity Type Activity Date Activity User E-Sign Co-Sign Detail Recorded Client Recorded Date Recorded By Document 09/28/20 10:22 RB [id number] 09/28/20 10:28 RB Document 10/05/20 12:59 MS [id number] 10/05/20 13:13 MS 09/28/20 10/05/20 10:22 12:59 Wound Center Nurse 1 8. L foot plantar post op -Current Size (cm) - Length 2.8 5.5 -Current Size (cm) - Width 5.4 2.5 -Current Size (cm) - Depth 1.4 1.5 -Total Square Cm 15.12 13.75 -Photo Taken Yes -Tunneling No -Undermining/Tunneling No -Circular Undermining No -Exudate Amt Large Large -Exudate Type Serosanguineous Serosanguineous -Wound Margin Thickened & Distinct, Rolled Under Outline Attached -Granulation Amt Medium (34-66%) -Granulation Quality [place] Red -Slough/Fibrin Yes -Necrosis Amt Medium (34-66%) Medium (34-66%) -Necrotic Tissue Type Adherent Slough Adherent Slough -Structure Exposed Tendon -Texture (Shannon-wound Skin Appearance) Scarring No Abnormality -Moisture (Shannon-wound Skin Appearance) Assessed No Abnormality -Color (Shannon-wound Skin Appearance) Erythema -Temperature (Shannon-wound Skin No Abnormality Appearance) (Pt Warm) -Tenderness on Palpation (Shannon-wound No Skin Appearance) -Ulcer Cleansing Wound Cleanser Wound Cleanser -Foul Odor after Cleansing No No -Anesthetic Used 4% Lidocaine 4% Lidocaine Solution Solution WC - Nurse 2 - General Ulcer CM Notes Start: 09/28/20 10:22 Freq: Status: Active Protocol: Activity Type Activity Date Activity User E-Sign Co-Sign Detail Recorded Client Recorded Date Recorded By Document 09/28/20 10:39 [id number] 09/28/20 10:43 JF Document 10/05/20 13:33 [id number] 10/05/20 13:39 JF 09/28/20 10/05/20 10:39 13:33 Wound Center Nurse 2 9-right posterior heel -Time 13:38 -Correct Patient Yes -Correct Side, Site, Position Yes -Correct Procedure Yes -Procedure Performed Yes -Type of Procedure Debridement -Clinical Debridement Subcutaneous -Tissue Removed Subcutaneous -Post Debridement (cm) - Length 0.8 -Post Debridement (cm) - Width 1 -Post Debridement (cm) - Depth 0.2 -Total Square (Post) (cm) 0.8 -Area of Debridement (cm) - Length 0.8 -Area of Debridement (cm) - Width 1 -Total Square (Area) (cm) 0.8 -Tunneling No -Undermining/Tunneling No -Circular Undermining No -Wound/Ulcer Outcome Not Healed -Ulcer Cleansing Rinsed/ Irrigated with Saline -Foul Odor after Cleansing No -Bioengineered Tissue No -Bleeding Controlled with Pressure -Offloading No -Treatment Response Procedure Tolerated Well -Debridement - Subq, 1st 20sq cm No 8. L foot plantar post op -Time 10:39 13:34 -Correct Patient Yes Yes -Correct Side, Site, Position Yes Yes -Correct Procedure Yes Yes -Procedure Performed Yes Yes -Type of Procedure Debridement Debridement -Clinical Debridement Subcutaneous Subcutaneous -Tissue Removed Subcutaneous Subcutaneous -Post Debridement (cm) - Length 2.8 5.5 -Post Debridement (cm) - Width 5.5 2.6 -Post Debridement (cm) - Depth 1.4 1.5 -Total Square (Post) (cm) 15.40 14.30 -Area of Debridement (cm) - Length 2.8 5.5 -Area of Debridement (cm) - Width 5.5 2.6 -Total Square (Area) (cm) 15.40 14.30 -Tunneling No No -Undermining/Tunneling No No -Circular Undermining No No -Wound/Ulcer Outcome Not Healed Not Healed -Ulcer Cleansing Rinsed/ Rinsed/ Irrigated with Irrigated with Saline Saline -Foul Odor after Cleansing No No -Bioengineered Tissue No No -Bleeding Controlled with Pressure Pressure -Offloading Yes Yes -Type of Offloading Knee Walker Camwalker -Treatment Response Procedure Procedure Tolerated Well Tolerated Well -Debridement - Subq, 1st 20sq cm Yes Yes Pain Scale: 0-10 Numeric Is Patient Pain Free? Yes Yes WC - Nurse 3 - General Ulcer D/C NN Start: 09/28/20 10:22 Freq: Status: Active Protocol: Activity Type Activity Date Activity User E-Sign Co-Sign Detail Recorded Client Recorded Date Recorded By Document 09/28/20 15:40 RB [id number] 09/28/20 15:41 RB 09/28/20 15:40 Wound Care Nurse 3 8. L foot plantar post op -Ulcer Cleansing Wound Cleanser -Negative Pressure Wound Therapy Continue -Setting (mmHg) 150 -Negative Pressure is Continuous -NPWT Application Charge ($) NPWT </= 50 sq cm Shannon-Wound Care Barrier Left -Tubular Bandage Single Layer -Size of Tubigrip Used Size E -Size E ($) 1 -Other ABD UNDERTUBING Treatment Response Procedure Tolerated Well WC - Visit Discharge Discharge Condition Stable Ambulatory Status Wheelchair Transportation Private Auto Medication Reconcilliation completed & No provided to patient/care provider Clinical Summary of Care Provided Yes Wound debrided: plantar midfoot, left Wound Grade/Stage: 3 Type of Debridement: Excisional debridement Anesthesia Used: 4% Lidocaine Solution Depth: in the subcutaneous layer Percentage of wound debrided: 100 Instrument Used: #15 blade Severity: Fat Layer Exposed Amount of bleeding with debridement: Mild Bleeding Controlled with: Pressure Patient tolerated procedure: Patient tolerated procedure well
[2020-10-12 13:29] VITALS: BP 127/50; PULSE 66; RESP 16; TEMP 35.7; BMI 29.9
--- NOTE | 2020-10-12 22:23 | PCM.WC.PN ---
History of Present Illness Date of Service: 10/15/20 Chief Complaint: Left foot right heel History of Wound: This is 75-year-old female with diabetic neuropathy history of Charcot left foot with rocker-bottom deformity, coronary artery disease and other comorbidities has a recurrent ulcer. She denies fever, chill, nausea, vomiting. She has had delayed healing of her plantar foot ulcer secondary to rocker-bottom Charcot foot deformity, recurrent ulcers and infections. She was recently admitted to the hospital for a left foot infection and underwent incision and drainage with debridement. She is been treated with antibiotics under the management of infectious disease and is currently treated with a wound VAC. Is also noted she had a recent heart attack during her hospitalization. She rescheduled her lower extremity vascular surgery intervention procedure and had this successfully completed at [facility] with Dr. Pang. She denies redness, odor and reports decreased left foot pain. She also has a right heel ulcer which she has been applying hydrogel. She wears a cloth foam boot to reduce pressure. Progress of Wound: stable right and left Objective Data Objective Data Vital Signs: Vital Signs Temp Pulse Resp BP 96.2 F L 66 16 127/50 H 10/12/20 13:29 10/12/20 13:29 10/12/20 13:29 10/12/20 13:29 Oxygen Delivery Method Room Air Body Mass Index (BMI) 29.9 Physical Exam Const alert and oriented x3 General Appearance: cooperative HEENT normocephalic Extremity Extremity Narrative: No calf tenderness Diminished pulses Muscle wasting noted No fluctuance or bogginess General Extremity: edema and no tenderness to palpation of joints or extremities; Negative for cyanosis Skin Skin Narrative: no purulence, no streaking, no odor, no infection. Granular and devitalized tendon/muscle tissue was exposed to the plantar left foot without deep space purulence on expression. Right posterior heel is granular and fibrous base without exposed tendon or bone. Skin adjacent is atrophic General Skin Exam: Negative for erythema Neuro Neuro Narrative: lack of normal epicritic sensation via light touch is consistent with neuropathy status Psych cooperative and affect normal Debridement Note Debridement Note Post-Debridement Measurements and Additional Note: Post-Debridement Measurements/Treatment AMINAH - Nurse 1 - General Ulcer Assessment Start: 09/28/20 10:22 Freq: Status: Active Protocol: EUGENE Activity Type Activity Date Activity User E-Sign Co-Sign Detail Recorded Client Recorded Date Recorded By Document 09/28/20 10:22 RB [id number] 09/28/20 10:28 RB Document 10/05/20 12:59 MS [id number] 10/05/20 13:13 MS Document 10/12/20 13:29 BM [id number] 10/12/20 13:40 BMF 09/28/20 10/05/20 10/12/20 10:22 12:59 13:29 WC - Today's Visit Information Type of service Follow-up Visit Follow-up Visit Follow-up Visit (Physician/SURVEY TECHNOLOGIST (Physician/SURVEY TECHNOLOGIST (Physician/SURVEY TECHNOLOGIST ) ) ) Arrival Mode Wheelchair Wheelchair Wheelchair Transfer Assistance Manual None Patient Identification Verified (Name & Yes Yes Yes ) Patient Requires Transmission-Based No No No Precautions Safety Precautions NA Finger Stick Blood Sugar(mg/dl) (if 200 110 indicated): Blood Sugar Stated by Stated by Patient Patient Height and Weight Body Mass Index (BMI) 29.9 29.9 29.9 BMI Classification Overweight Overweight Overweight Vital Signs Temperature (97.8 F-99.1 F) 97 F L 97.2 F L 96.2 F L Temperature Source Temporal Temporal Temporal Pulse Rate (60-100) 97 77 66 Pulse Location Monitor Monitor Monitor Respiratory Rate (12-18) 18 16 16 Respiratory rate source Observation Observation Observation Oxygen Delivery Method Room Air Blood Pressure (90/60-120/80) 153/66 H 107/59 L 127/50 H Blood Pressure Mean (mm Hg) 95 75 75 Source Monitor Monitor Monitor Position Semi-Fowlers Sitting Sitting Blood Pressure Location Left Arm Left Arm Left Arm History Since Last Visit- (Skip if this is Patient's initial visit) Have you changed medications since your No No No last visit? Any new allergies or adverse reactions No No No Had a fall/change in ADL's that may No No No increase risk of falls Signs or symptoms of abuse and/or No No No neglect since last visit Have you been in the hospital since your No No No last visit? Has dressing in place as prescribed Yes Yes Yes Has compression in place as prescribed No N/A N/A Has offloadiing in place as prescribed Yes N/A Yes Experienced any changes in pain level or No Yes No management Left Footwear Surgical Shoe Other Footwear with pressure (Comment) relief insole Right Footwear Regular Shoe Regular Shoe Other Footwear sock to left foot WC - Nurse 1 - General Ulcer Measurement Start: 09/28/20 10:22 Freq: Status: Active Protocol: Activity Type Activity Date Activity User E-Sign Co-Sign Detail Recorded Client Recorded Date Recorded By Document 09/28/20 10:22 RB [id number] 09/28/20 10:28 RB Document 10/05/20 12:59 MS [id number] 10/05/20 13:13 MS Document 10/12/20 13:29 BMF [id number] 10/12/20 13:40 BMF 09/28/20 10/05/20 10/12/20 10:22 12:59 13:29 Wound Center Nurse 1 9-right posterior heel -Combined with other wound No -Current Size (cm) - Length 1 -Current Size (cm) - Width 2.3 -Current Size (cm) - Depth 0.2 -Total Square Cm 2.3 -Photo Taken No -Epithelialization None Present -Tunneling No -Undermining/Tunneling No -Circular Undermining No -Exudate Amt Medium -Exudate Type Serosanguineous -Wound Margin Distinct, Outline Attached -Granulation Amt None Present (0 %) -Slough/Fibrin Yes -Necrosis Amt Large (67-100%) -Necrotic Tissue Type Adherent Slough -Texture (Shannon-wound Skin Appearance) Assessed, Scarring -Moisture (Shannon-wound Skin Appearance) Assessed -Color (Shannon-wound Skin Appearance) Assessed -Temperature (Shannon-wound Skin No Abnormality Appearance) (Pt Warm) -Tenderness on Palpation (Shannon-wound No Skin Appearance) -Ulcer Cleansing Rinsed/ Irrigated with Saline -Foul Odor after Cleansing No -Anesthetic Used 5% Lidocaine Gel 8. L foot plantar post op -Combined with other wound No -Current Size (cm) - Length 2.8 5.5 2 -Current Size (cm) - Width 5.4 2.5 3.7 -Current Size (cm) - Depth 1.4 1.5 1.5 -Total Square Cm 15.12 13.75 7.4 -Photo Taken Yes No -Epithelialization None Present -Tunneling No No -Undermining/Tunneling No No -Circular Undermining No No -Exudate Amt Large Large Large -Exudate Type Serosanguineous Serosanguineous Serosanguineous -Wound Margin Thickened & Distinct, Distinct, Rolled Under Outline Outline Attached Attached -Granulation Amt Medium (34-66%) Large (67-100%) -Granulation Quality [place] Red Red -Slough/Fibrin Yes Yes -Necrosis Amt Medium (34-66%) Medium (34-66%) Small (1-33%) -Necrotic Tissue Type Adherent Slough Adherent Slough Adherent Slough -Structure Exposed Tendon -Texture (Shannon-wound Skin Appearance) Scarring No Abnormality Assessed, Localized Edema ,Scarring -Moisture (Shannon-wound Skin Appearance) Assessed No Abnormality Assessed, Maceration -Color (Shannon-wound Skin Appearance) Erythema Assessed, Erythema, Mottled -Temperature (Shannon-wound Skin No Abnormality No Abnormality Appearance) (Pt Warm) (Pt Warm) -Tenderness on Palpation (Shannon-wound No No Skin Appearance) -Ulcer Cleansing Wound Cleanser Wound Cleanser soapy wtaer -Foul Odor after Cleansing No No No -Anesthetic Used 4% Lidocaine 4% Lidocaine 5% Lidocaine Solution Solution Gel WC - Nurse 2 - General Ulcer CM Notes Start: 09/28/20 10:22 Freq: Status: Active Protocol: Activity Type Activity Date Activity User E-Sign Co-Sign Detail Recorded Client Recorded Date Recorded By Document 09/28/20 10:39 [id number] 09/28/20 10:43 Document 10/05/20 13:[address] [id number] 10/05/20 13:39 Edit Result 10/05/20 13:33 (1) [id number] 10/05/20 13:53 Document 10/12/20 13:[address] [id number] 10/12/20 13:59 (1) 8. L foot plantar post op - Tissue Removed Subcutaneous => Muscle,Tendon - Debridement - Subq, 1st 20sq cm Yes => No - Debridement - Muscle / Fascia, 1st => Yes 20sq cm 09/28/20 10/05/20 10/12/20 10:39 13:33 13:49 Wound Center Nurse 2 9-right posterior heel -Time 13:38 13:51 -Correct Patient Yes Yes -Correct Side, Site, Position Yes Yes -Correct Procedure Yes Yes -Procedure Performed Yes Yes -Type of Procedure Debridement Debridement -Clinical Debridement Subcutaneous Subcutaneous -Tissue Removed Subcutaneous Subcutaneous -Post Debridement (cm) - Length 0.8 1.1 -Post Debridement (cm) - Width 1 2.4 -Post Debridement (cm) - Depth 0.2 2 -Total Square (Post) (cm) 0.8 2.64 -Area of Debridement (cm) - Length 0.8 1.1 -Area of Debridement (cm) - Width 1 2.4 -Total Square (Area) (cm) 0.8 2.64 -Tunneling No No -Undermining/Tunneling No No -Circular Undermining No No -Wound/Ulcer Outcome Not Healed Not Healed -Ulcer Cleansing Rinsed/ Rinsed/ Irrigated with Irrigated with Saline Saline -Foul Odor after Cleansing No No -Bioengineered Tissue No No -Bleeding Controlled with Pressure Silver Nitrate -Offloading No Yes -Type of Offloading Surgical Shoe -Treatment Response Procedure Procedure Tolerated Well Tolerated Well -Debridement - Subq, 1st 20sq cm No Yes 8. L foot plantar post op -Time 10:39 13:34 13:57 -Correct Patient Yes Yes Yes -Correct Side, Site, Position Yes Yes Yes -Correct Procedure Yes Yes Yes -Procedure Performed Yes Yes Yes -Type of Procedure Debridement Debridement Debridement -Clinical Debridement Subcutaneous Subcutaneous Subcutaneous -Tissue Removed Subcutaneous Muscle,Tendon Subcutaneous -Post Debridement (cm) - Length 2.8 5.5 2 -Post Debridement (cm) - Width 5.5 2.6 3.8 -Post Debridement (cm) - Depth 1.4 1.5 1.5 -Total Square (Post) (cm) 15.40 14.30 7.6 -Area of Debridement (cm) - Length 2.8 5.5 2 -Area of Debridement (cm) - Width 5.5 2.6 3.8 -Total Square (Area) (cm) 15.40 14.30 7.6 -Tunneling No No No -Undermining/Tunneling No No No -Circular Undermining No No No -Wound/Ulcer Outcome Not Healed Not Healed Not Healed -Ulcer Cleansing Rinsed/ Rinsed/ Rinsed/ Irrigated with Irrigated with Irrigated with Saline Saline Saline -Foul Odor after Cleansing No No No -Bioengineered Tissue No No No -Bleeding Controlled with Pressure Pressure Pressure -Offloading Yes Yes Yes -Type of Offloading Knee Walker Camwalker Camwalker -Treatment Response Procedure Procedure Procedure Not Tolerated Well Tolerated Well Tolerated Well -Debridement - Subq, 1st 20sq cm Yes No No -Debridement - Muscle / Fascia, 1st Yes 20sq cm Pain Scale: 0-10 Numeric Is Patient Pain Free? Yes Yes Yes - Nurse 3 - General Ulcer D/C NN Start: 09/28/20 10:22 Freq: Status: Active Protocol: Activity Type Activity Date Activity User E-Sign Co-Sign Detail Recorded Client Recorded Date Recorded By Document 09/28/20 15:40 [id number] 09/28/20 15:41 Document 10/05/20 14:11 [facility] [id number] 10/05/20 14:14 [facility] Document 10/12/20 14:20 [facility] [id number] 10/12/20 14:21 [facility] 09/28/20 10/05/20 10/12/20 15:40 14:11 14:20 Wound Care Nurse 3 9-right posterior heel -Ulcer Cleansing Rinsed/ Rinsed/ Irrigated with Irrigated with Saline Saline -Foul Odor after Cleansing No No -Primary Dressing Applied Aquacel AG 4x4 Other -Other Dressing hydrogel -Primary Dressing Covered/Secured with Dry Gauze & Dry Gauze, Roll Gauze, Secured with Secured with Tape Tape -Other Covering drsg per rb rn -Aquacel AG 4x4 1 8. L foot plantar post op -Ulcer Cleansing Wound Cleanser Rinsed/ Irrigated with Saline -Foul Odor after Cleansing No -Negative Pressure Wound Therapy Continue Continue Continue -Setting (mmHg) 150 150 150 -Negative Pressure is Continuous Continuous Continuous -Other Dressing drsg per rb rn -NPWT Application Charge ($) NPWT </= 50 sq NPWT </= 50 sq NPWT </= 50 sq cm cm cm Shannon-Wound Care Barrier Left -Tubular Bandage Single Layer Single Layer -Size of Tubigrip Used Size E Size E -Size E ($) 1 1 -Other ABD UNDERTUBING Treatment Response Procedure Procedure Procedure Tolerated Well Tolerated Well Tolerated Well Pain Scale: 0-10 Numeric Is Patient Pain Free? Yes Yes WC - Visit Discharge Discharge Condition Stable Stable Stable Ambulatory Status Wheelchair Wheelchair Transportation Private Auto Private Auto Accompanied by Medication Reconcilliation completed & No provided to patient/care provider Clinical Summary of Care Provided Yes Facility Type Home Health Home Health Wound debrided: plantar left foot Wound Grade/Stage: 3 Type of Debridement: Excisional debridement Anesthesia Used: 4% Lidocaine Solution Depth: in the subcutaneous layer Percentage of wound debrided: 100 Instrument Used: #15 blade Tissue Removed: fibrous, devitalized subcutaneous, biofilm, slough Severity: Fat Layer Exposed Amount of bleeding with debridement: Mild Bleeding Controlled with: Pressure Patient tolerated procedure: Patient tolerated procedure well Assessment/Plan Assessment/Plan (1) Cellulitis of left foot: CODE(S): Code(s): L03.116 - Cellulitis of left lower limb (2) 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: CODE(S): Code(s): L97.523 - Non-pressure chronic ulcer of other part of left foot with necrosis of muscle (3) Delayed wound healing: CODE(S): Code(s): T14.8XXD - Other injury of unspecified body region, subsequent encounter (4) Other specified peripheral vascular diseases: CODE(S): Code(s): I73.89 - Other specified peripheral vascular diseases (5) Charcot's joint of left foot: CODE(S): Code(s): M14.672 - Charcot's joint, left ankle and foot (6) Type 2 diabetes mellitus with diabetic polyneuropathy: CODE(S): Code(s): E11.42 - Type 2 diabetes mellitus with diabetic polyneuropathy QUALIFIERS: Diabetes mellitus nursing home insulin use: with terminal operator use Qualified Code(s): E11.42 - Type 2 diabetes mellitus with diabetic polyneuropathy; Z79.4 - assisted (current) use of insulin (7) Ulcer of right foot with fat layer exposed: CODE(S): Code(s): L97.512 - Non-pressure chronic ulcer of other part of right foot with fat layer exposed PLAN: Procedure- Location: right posterior heel grade 1 Excisional debridement performed Anesthesia: 5% lidocaine plain Debridement layer: subcutaneous Amount of debridement: 100% Instrumentation used: 15 blade Tissue debrided: fibrous, devitalized subcutaneous, biofilm, slough Exposed tissue: fat layer Bleeding: mild Hemostasis controlled: pressure The patient tolerated the procedure well. I reviewed and discussed her case. Debridement was performed as noted bilateral. To continue wound VAC continues on 150 mmHg left 3 times a week. To change right heel dressing daily with Santyl. To wash adjacent sites with soap and water. Cultures from surgery with strep B. ID on consult. Complete cephalexin 500 mg q 8 hrs. To follow up as advised with Dr. Webb. Vascular surgery intervention was performed successfully at [facility] this past week with Dr. Pang w/ antioplasty at femoral through adductor into popliteal (balloon). To maintain non weightbearing status with the use of assistive devices (knee roller/walker) left lower extremity. I recommend she hangs her right heel over stacked pillows or blankets while seated or laying down. Pain controlled with home pain medication regimen per PCP. To continue nutritional supplementation to optimize healing. She is taking Blue and has also been trying to eat more fresh foods. She is working on more detailed diet planning with her primary care physician. F/u wound care center 1 week. I answered all of her questions. Note: [employer] speech recognition livestock nutritionist software was used to create portions of this document. Sound-alike and misspelled words, as well as other livestock nutritionist errors may be contained in the documentation.
[2020-10-19 15:08] VITALS: BP 159/78; PULSE 78; RESP 18; TEMP 36.1; BMI 29.9
--- NOTE | 2020-10-19 16:09 | PCM.WC.PN ---
History of Present Illness Date of Service: 10/19/20 Chief Complaint: Left foot right heel History of Wound: This is 75-year-old female with diabetic neuropathy history of Charcot left foot with rocker-bottom deformity, coronary artery disease and other comorbidities has a recurrent ulcer. She denies fever, chill, nausea, vomiting. She has had delayed healing of her plantar foot ulcer secondary to rocker-bottom Charcot foot deformity, recurrent ulcers and infections. She was recently admitted to the hospital for a left foot infection and underwent incision and drainage with debridement. She is been treated with antibiotics under the management of infectious disease and is currently treated with a wound VAC. Is also noted she had a recent heart attack during her hospitalization. She rescheduled her lower extremity vascular surgery intervention procedure and had this successfully completed at [facility] with Dr. Pang. She denies redness, odor and reports decreased left foot pain. She also has a right heel ulcer which she has been applying santyl. she tries to keep pressure off of her ulcer sites. She denies fever, chill, nausea, vomiting, redness, odor or problems with the wound VAC. Some increased left foot and ankle pain and stiffness last week and x-ray was ordered. She did obtain this on Saturday would like to go over the results. She denies increased swelling or redness of the ankle or hindfoot level. She denies recent injuries. Progress of Wound: stable right improving left Objective Data Objective Data Vital Signs: Vital Signs Temp Pulse Resp BP 97 F L 78 18 159/78 H 10/19/20 15:08 10/19/20 15:08 10/19/20 15:08 10/19/20 15:08 Oxygen Delivery Method Room Air Body Mass Index (BMI) 29.9 Physical Exam Const alert and oriented x3 General Appearance: cooperative HEENT normocephalic Extremity Extremity Narrative: No calf tenderness Diminished pulses Muscle wasting noted No fluctuance or bogginess Rocker-bottom left Charcot foot is nonacute and stable without gross laxity. no gross laxity to ankle or subtalar joint; no calor General Extremity: edema and no tenderness to palpation of joints or extremities; Negative for cyanosis Skin Skin Narrative: no purulence, no streaking, no odor, no infection. Granular and devitalized tendon/muscle tissue was exposed to the plantar left foot without deep space purulence on expression (debrided). Right posterior heel is granular and fibrous base without exposed tendon or bone. Skin adjacent is atrophic and hairless General Skin Exam: Negative for erythema Neuro Neuro Narrative: lack of normal epicritic sensation via light touch is consistent with neuropathy status Psych cooperative and affect normal Debridement Note Debridement Note Post-Debridement Measurements and Additional Note: Post-Debridement Measurements/Treatment - Nurse 1 - General Ulcer Assessment Start: 09/28/20 10:22 Freq: Status: Active Protocol: EUGENE Activity Type Activity Date Activity User E-Sign Co-Sign Detail Recorded Client Recorded Date Recorded By Document 09/28/20 10:22 RB [id number] 09/28/20 10:28 RB Document 10/05/20 12:59 MS [id number] 10/05/20 13:13 MS Document 10/12/20 13:29 BMF [id number] 10/12/20 13:40 BMF Document 10/19/20 15:08 RB [id number] 10/19/20 15:11 RB 09/28/20 10/05/20 10/12/20 10:22 12:59 13:29 - Today's Visit Information Type of service Follow-up Visit Follow-up Visit Follow-up Visit (Physician/RETAIL CUSTOMER SERVICE REPRESENTATIVE (Physician/RETAIL CUSTOMER SERVICE REPRESENTATIVE (Physician/RETAIL CUSTOMER SERVICE REPRESENTATIVE ) ) ) Arrival Mode Wheelchair Wheelchair Wheelchair Transfer Assistance Manual None Patient Identification Verified (Name & Yes Yes Yes ) Patient Requires Transmission-Based No No No Precautions Safety Precautions NA Finger Stick Blood Sugar(mg/dl) (if 200 110 indicated): Blood Sugar Stated by Stated by Patient Patient Height and Weight Body Mass Index (BMI) 29.9 29.9 29.9 BMI Classification Overweight Overweight Overweight Vital Signs Temperature (97.8 F-99.1 F) 97 F L 97.2 F L 96.2 F L Temperature Source Temporal Temporal Temporal Pulse Rate (60-100) 97 77 66 Pulse Location Monitor Monitor Monitor Respiratory Rate (12-18) 18 16 16 Respiratory rate source Observation Observation Observation Oxygen Delivery Method Room Air Blood Pressure (90/60-120/80) 153/66 H 107/59 L 127/50 H Blood Pressure Mean (mm Hg) 95 75 75 Source Monitor Monitor Monitor Position Semi-Fowlers Sitting Sitting Blood Pressure Location Left Arm Left Arm Left Arm History Since Last Visit- (Skip if this is Patient's initial visit) Have you changed medications since your No No No last visit? Any new allergies or adverse reactions No No No Had a fall/change in ADL's that may No No No increase risk of falls Signs or symptoms of abuse and/or No No No neglect since last visit Have you been in the hospital since your No No No last visit? Has dressing in place as prescribed Yes Yes Yes Has compression in place as prescribed No N/A N/A Has offloadiing in place as prescribed Yes N/A Yes Experienced any changes in pain level or No Yes No management Left Footwear Surgical Shoe Other Footwear with pressure (Comment) relief insole Right Footwear Regular Shoe Regular Shoe Other Footwear sock to left foot Pain Scale: 0-10 Numeric Is Patient Pain Free? 10/19/20 15:08 WC - Today's Visit Information Type of service Follow-up Visit (Physician/RETAIL CUSTOMER SERVICE REPRESENTATIVE ) Arrival Mode Wheelchair Transfer Assistance None Patient Identification Verified (Name & Yes ) Patient Requires Transmission-Based No Precautions Safety Precautions Finger Stick Blood Sugar(mg/dl) (if 107 indicated): Blood Sugar Stated by Patient Height and Weight Body Mass Index (BMI) 29.9 BMI Classification Overweight Vital Signs Temperature (97.8 F-99.1 F) 97 F L Temperature Source Temporal Pulse Rate (60-100) 78 Pulse Location Monitor Respiratory Rate (12-18) 18 Respiratory rate source Observation Oxygen Delivery Method Blood Pressure (90/60-120/80) 159/78 H Blood Pressure Mean (mm Hg) 105 Source Monitor Position Semi-Fowlers Blood Pressure Location Left Arm History Since Last Visit- (Skip if this is Patient's initial visit) Have you changed medications since your No last visit? Any new allergies or adverse reactions No Had a fall/change in ADL's that may No increase risk of falls Signs or symptoms of abuse and/or neglect since last visit Have you been in the hospital since your No last visit? Has dressing in place as prescribed Yes Has compression in place as prescribed No Has offloadiing in place as prescribed Yes Experienced any changes in pain level or No management Left Footwear Right Footwear Other Footwear Pain Scale: 0-10 Numeric Is Patient Pain Free? Yes - Nurse 1 - General Ulcer Measurement Start: 09/28/20 10:22 Freq: Status: Active Protocol: Activity Type Activity Date Activity User E-Sign Co-Sign Detail Recorded Client Recorded Date Recorded By Document 09/28/20 10:22 RB [id number] 09/28/20 10:28 RB Document 10/05/20 12:59 MS [id number] 10/05/20 13:13 MS Document 10/12/20 13:29 [facility] [id number] 10/12/20 13:40 BM Document 10/19/20 15:08 RB [id number] 10/19/20 15:11 RB 09/28/20 10/05/20 10/12/20 10:22 12:59 13:29 Wound Center Nurse 1 9-right posterior heel -Combined with other wound No -Current Size (cm) - Length 1 -Current Size (cm) - Width 2.3 -Current Size (cm) - Depth 0.2 -Total Square Cm 2.3 -Photo Taken No -Epithelialization None Present -Tunneling No -Undermining/Tunneling No -Circular Undermining No -Exudate Amt Medium -Exudate Type Serosanguineous -Wound Margin Distinct, Outline Attached -Granulation Amt None Present (0 %) -Granulation Quality -Slough/Fibrin Yes -Necrosis Amt Large (67-100%) -Necrotic Tissue Type Adherent Slough -Structure Exposed -Texture (Shannon-wound Skin Appearance) Assessed, Scarring -Moisture (Shannon-wound Skin Appearance) Assessed -Color (Shannon-wound Skin Appearance) Assessed -Temperature (Shannon-wound Skin No Abnormality Appearance) (Pt Warm) -Tenderness on Palpation (Shannon-wound No Skin Appearance) -Ulcer Cleansing Rinsed/ Irrigated with Saline -Foul Odor after Cleansing No -Anesthetic Used 5% Lidocaine Gel 8. L foot plantar post op -Combined with other wound No -Current Size (cm) - Length 2.8 5.5 2 -Current Size (cm) - Width 5.4 2.5 3.7 -Current Size (cm) - Depth 1.4 1.5 1.5 -Total Square Cm 15.12 13.75 7.4 -Photo Taken Yes No -Epithelialization None Present -Tunneling No No -Undermining/Tunneling No No -Circular Undermining No No -Exudate Amt Large Large Large -Exudate Type Serosanguineous Serosanguineous Serosanguineous -Wound Margin Thickened & Distinct, Distinct, Rolled Under Outline Outline Attached Attached -Granulation Amt Medium (34-66%) Large (67-100%) -Granulation Quality Lexa Red Red -Slough/Fibrin Yes Yes -Necrosis Amt Medium (34-66%) Medium (34-66%) Small (1-33%) -Necrotic Tissue Type Adherent Slough Adherent Slough Adherent Slough -Structure Exposed Tendon -Texture (Shannon-wound Skin Appearance) Scarring No Abnormality Assessed, Localized Edema ,Scarring -Moisture (Shannon-wound Skin Appearance) Assessed No Abnormality Assessed, Maceration -Color (Shannon-wound Skin Appearance) Erythema Assessed, Erythema, Mottled -Temperature (Shannon-wound Skin No Abnormality No Abnormality Appearance) (Pt Warm) (Pt Warm) -Tenderness on Palpation (Shannon-wound No No Skin Appearance) -Ulcer Cleansing Wound Cleanser Wound Cleanser soapy wtaer -Foul Odor after Cleansing No No No -Anesthetic Used 4% Lidocaine 4% Lidocaine 5% Lidocaine Solution Solution Gel 10/19/20 15:08 Wound Center Nurse 1 9-right posterior heel -Combined with other wound No -Current Size (cm) - Length 1.1 -Current Size (cm) - Width 1.3 -Current Size (cm) - Depth 0.1 -Total Square Cm 1.43 -Photo Taken -Epithelialization -Tunneling No -Undermining/Tunneling No -Circular Undermining No -Exudate Amt Small -Exudate Type Serosanguineous -Wound Margin Flat & Intact -Granulation Amt Medium (34-66%) -Granulation Quality Lexa -Slough/Fibrin Yes -Necrosis Amt Small (1-33%) -Necrotic Tissue Type Adherent Slough -Structure Exposed N/A -Texture (Shannon-wound Skin Appearance) Assessed -Moisture (Shannon-wound Skin Appearance) Assessed -Color (Shannon-wound Skin Appearance) Assessed -Temperature (Shannon-wound Skin No Abnormality Appearance) (Pt Warm) -Tenderness on Palpation (Shannon-wound No Skin Appearance) -Ulcer Cleansing Wound Cleanser -Foul Odor after Cleansing No -Anesthetic Used 5% Lidocaine Gel 8. L foot plantar post op -Combined with other wound No -Current Size (cm) - Length 2.3 -Current Size (cm) - Width 4 -Current Size (cm) - Depth 2.3 -Total Square Cm 9.2 -Photo Taken -Epithelialization -Tunneling No -Undermining/Tunneling No -Circular Undermining No -Exudate Amt Large -Exudate Type Serosanguineous -Wound Margin Thickened & Rolled Under -Granulation Amt Medium (34-66%) -Granulation Quality Lexa -Slough/Fibrin Yes -Necrosis Amt Medium (34-66%) -Necrotic Tissue Type Adherent Slough -Structure Exposed Tendon,N/A -Texture (Shannon-wound Skin Appearance) Scarring -Moisture (Shannon-wound Skin Appearance) Maceration -Color (Shannon-wound Skin Appearance) Assessed -Temperature (Shannon-wound Skin No Abnormality Appearance) (Pt Warm) -Tenderness on Palpation (Shannon-wound No Skin Appearance) -Ulcer Cleansing Wound Cleanser -Foul Odor after Cleansing No -Anesthetic Used 5% Lidocaine Gel WC - Nurse 2 - General Ulcer CM Notes Start: 09/28/20 10:22 Freq: Status: Active Protocol: Activity Type Activity Date Activity User E-Sign Co-Sign Detail Recorded Client Recorded Date Recorded By Document 09/28/20 10:39 [id number] 09/28/20 10:43 Document 10/05/20 13:33 [id number] 10/05/20 13:39 JF Edit Result 10/05/20 13:33 JF (1) [id number] 10/05/20 13:53 Document 10/12/20 13:49 JF [id number] 10/12/20 13:59 JF (1) 8. L foot plantar post op - Tissue Removed Subcutaneous => Muscle,Tendon - Debridement - Subq, 1st 20sq cm Yes => No - Debridement - Muscle / Fascia, 1st => Yes 20sq cm 09/28/20 10/05/20 10/12/20 10:39 13:33 13:49 Wound Center Nurse 2 9-right posterior heel -Time 13:38 13:51 -Correct Patient Yes Yes -Correct Side, Site, Position Yes Yes -Correct Procedure Yes Yes -Procedure Performed Yes Yes -Type of Procedure Debridement Debridement -Clinical Debridement Subcutaneous Subcutaneous -Tissue Removed Subcutaneous Subcutaneous -Post Debridement (cm) - Length 0.8 1.1 -Post Debridement (cm) - Width 1 2.4 -Post Debridement (cm) - Depth 0.2 2 -Total Square (Post) (cm) 0.8 2.64 -Area of Debridement (cm) - Length 0.8 1.1 -Area of Debridement (cm) - Width 1 2.4 -Total Square (Area) (cm) 0.8 2.64 -Tunneling No No -Undermining/Tunneling No No -Circular Undermining No No -Wound/Ulcer Outcome Not Healed Not Healed -Ulcer Cleansing Rinsed/ Rinsed/ Irrigated with Irrigated with Saline Saline -Foul Odor after Cleansing No No -Bioengineered Tissue No No -Bleeding Controlled with Pressure Silver Nitrate -Offloading No Yes -Type of Offloading Surgical Shoe -Treatment Response Procedure Procedure Tolerated Well Tolerated Well -Debridement - Subq, 1st 20sq cm No Yes 8. L foot plantar post op -Time 10:39 13:34 13:57 -Correct Patient Yes Yes Yes -Correct Side, Site, Position Yes Yes Yes -Correct Procedure Yes Yes Yes -Procedure Performed Yes Yes Yes -Type of Procedure Debridement Debridement Debridement -Clinical Debridement Subcutaneous Subcutaneous Subcutaneous -Tissue Removed Subcutaneous Muscle,Tendon Subcutaneous -Post Debridement (cm) - Length 2.8 5.5 2 -Post Debridement (cm) - Width 5.5 2.6 3.8 -Post Debridement (cm) - Depth 1.4 1.5 1.5 -Total Square (Post) (cm) 15.40 14.30 7.6 -Area of Debridement (cm) - Length 2.8 5.5 2 -Area of Debridement (cm) - Width 5.5 2.6 3.8 -Total Square (Area) (cm) 15.40 14.30 7.6 -Tunneling No No No -Undermining/Tunneling No No No -Circular Undermining No No No -Wound/Ulcer Outcome Not Healed Not Healed Not Healed -Ulcer Cleansing Rinsed/ Rinsed/ Rinsed/ Irrigated with Irrigated with Irrigated with Saline Saline Saline -Foul Odor after Cleansing No No No -Bioengineered Tissue No No No -Bleeding Controlled with Pressure Pressure Pressure -Offloading Yes Yes Yes -Type of Offloading Knee Walker Camwalker Camwalker -Treatment Response Procedure Procedure Procedure Not Tolerated Well Tolerated Well Tolerated Well -Debridement - Subq, 1st 20sq cm Yes No No -Debridement - Muscle / Fascia, 1st Yes 20sq cm Pain Scale: 0-10 Numeric Is Patient Pain Free? Yes Yes Yes WC - Nurse 3 - General Ulcer D/C NN Start: 09/28/20 10:22 Freq: Status: Active Protocol: Activity Type Activity Date Activity User E-Sign Co-Sign Detail Recorded Client Recorded Date Recorded By Document 09/28/20 15:40 [id number] 09/28/20 15:41 RB Document 10/05/20 14:11 [facility] [id number] 10/05/20 14:14 [facility] Document 10/12/20 14:20 [facility] [id number] 10/12/20 14:21 [facility] Document 10/19/20 15:44 [facility] [id number] 10/19/20 15:45 [facility] 09/28/20 10/05/20 10/12/20 15:40 14:11 14:20 Wound Care Nurse 3 9-right posterior heel -Ulcer Cleansing Rinsed/ Rinsed/ Irrigated with Irrigated with Saline Saline -Foul Odor after Cleansing No No -Primary Dressing Applied Aquacel AG 4x4 Other -Other Dressing hydrogel -Primary Dressing Covered/Secured with Dry Gauze & Dry Gauze, Roll Gauze, Secured with Secured with Tape Tape -Other Covering drsg per rb rn -Aquacel AG 4x4 1 8. L foot plantar post op -Ulcer Cleansing Wound Cleanser Rinsed/ Irrigated with Saline -Foul Odor after Cleansing No -Negative Pressure Wound Therapy Continue Continue Continue -Setting (mmHg) 150 150 150 -Negative Pressure is Continuous Continuous Continuous -Other Dressing drsg per rb rn -NPWT Application Charge ($) NPWT </= 50 sq NPWT </= 50 sq NPWT </= 50 sq cm cm cm Shannon-Wound Care Barrier Left -Tubular Bandage Single Layer Single Layer -Size of Tubigrip Used Size E Size E -Size E ($) 1 1 -Other ABD UNDERTUBING Treatment Response Procedure Procedure Procedure Tolerated Well Tolerated Well Tolerated Well Pain Scale: 0-10 Numeric Is Patient Pain Free? Yes Yes WC - Visit Discharge Discharge Condition Stable Stable Stable Ambulatory Status Wheelchair Wheelchair Transportation Private Auto Private Auto Accompanied by Medication Reconcilliation completed & No provided to patient/care provider Clinical Summary of Care Provided Yes Facility Type Home Health Home [facility] 10/19/20 15:44 Wound Care Nurse 3 9-right posterior heel -Ulcer Cleansing Rinsed/ Irrigated with Saline -Foul Odor after Cleansing No -Primary Dressing Applied Other -Other Dressing hydrogel, per rb rn -Primary Dressing Covered/Secured with Dry Gauze, Secured with Tape -Other Covering -Aquacel AG 4x4 8. L foot plantar post op -Ulcer Cleansing Rinsed/ Irrigated with Saline -Foul Odor after Cleansing No -Negative Pressure Wound Therapy Continue -Setting (mmHg) 150 -Negative Pressure is Continuous -Other Dressing per rb rn -NPWT Application Charge ($) NPWT </= 50 sq cm Shannon-Wound Care Left -Tubular Bandage -Size of Tubigrip Used -Size E ($) -Other pts own tubi applied Treatment Response Procedure Tolerated Well Pain Scale: 0-10 Numeric Is Patient Pain Free? Yes WC - Visit Discharge Discharge Condition Stable Ambulatory Status Wheelchair Transportation Private Auto Accompanied by Medication Reconcilliation completed & provided to patient/care provider Clinical Summary of Care Provided Facility Type Home Health Wound debrided: plantar left foot Wound Grade/Stage: 3 Type of Debridement: Excisional debridement Anesthesia Used: 4% Lidocaine Solution Depth: in the subcutaneous layer Percentage of wound debrided: 100 Instrument Used: #15 blade Tissue Removed: fibrous, devitalized subcutaneous and tendon, biofilm, slough Severity: Necrosis of Muscle Amount of bleeding with debridement: Mild Bleeding Controlled with: Pressure Patient tolerated procedure: Patient tolerated procedure well Assessment/Plan Assessment/Plan (1) 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: CODE(S): L97.523 - Non-pressure chronic ulcer of other part of left foot with necrosis of muscle (2) Delayed wound healing: CODE(S): T14.8XXD - Other injury of unspecified body region, subsequent encounter (3) Other specified peripheral vascular diseases: CODE(S): I73.89 - Other specified peripheral vascular diseases (4) Charcot's joint of left foot: CODE(S): M14.672 - Charcot's joint, left ankle and foot (5) Type 2 diabetes mellitus with diabetic polyneuropathy: CODE(S): E11.42 - Type 2 diabetes mellitus with diabetic polyneuropathy QUALIFIERS: Diabetes mellitus fdc insulin use: with fdc use Qualified Code(s): E11.42 - Type 2 diabetes mellitus with diabetic polyneuropathy; Z79.4 - terminal make up operator (current) use of insulin (6) Ulcer of right foot with fat layer exposed: CODE(S): L97.512 - Non-pressure chronic ulcer of other part of right foot with fat layer exposed (7) Pain in left ankle and joints of left foot: CODE(S): M25.572 - Pain in left ankle and joints of left foot PLAN: Procedure- Location: right posterior heel grade 1 Excisional debridement performed Anesthesia: 5% lidocaine plain Debridement layer: subcutaneous Amount of debridement: 100% Instrumentation used: 15 blade Tissue debrided: fibrous, devitalized subcutaneous, biofilm, slough Exposed tissue: fat layer Bleeding: mild Hemostasis controlled: pressure The patient tolerated the procedure well. I reviewed and discussed her case. Debridement was performed as noted bilateral including right excisional subcutaneous and left excisional tendon/muscle. To continue wound VAC continues on 150 mmHg left 3 times a week to the left foot. To change right heel dressing daily with Santyl. To wash adjacent sites with soap and water. Cultures from surgery (09/20) with coag neg staph, strep, enterococcus. ID on consult. Complete cephalexin 500 mg q 8 hrs for 4 weeks at time of discharge. MRI w/out osteo from recent hospital admission. To follow up as advised with Dr. Webb. She does not have local signs of cellulitis today and this is significantly improved. Labs: 09-19-20 with ESR 44. 4- with A1c of 7.1%.4?30?21 white blood cell count 6.8. Vascular surgery intervention was performed successfully at [facility] this past week with Dr. Pang w/ antioplasty at femoral through adductor into popliteal (balloon). To maintain non weightbearing status with the use of assistive devices (knee roller/walker) left lower extremity. I recommend she hangs her right heel over stacked pillows or blankets while seated or laying down. Pain controlled with home pain medication regimen per PCP. Imaging: Weightbearing left ankle and foot x-rays were reviewed from 09-14-20 without acute Charcot or osseous destruction at the ankle or hindfoot where her recent subjective pain is located. There is also no soft tissue emphysema or foreign body noted to the foot adjacent to the ulcer site. Prior rocker-bottom Charcot midfoot is noted with fragmentation and consolidation is consistent with prior x-rays. To continue nutritional supplementation to optimize healing. She is taking Blue and has also been trying to eat more fresh foods. She is working on more detailed diet planning with her primary care physician. She has significant delays in healing and I recommend advanced wound healing product application, epi cord (umbilical and placental derived tissue) no later epi fix once the ulcer site is more superficial. Prior authorization was initiated. The indication, benefits, application expectations and management were reviewed. This is medically necessary for limb salvage. She has had significant delays in healing prior amputation as risk for further limb and life loss due to her chronic ulcers. F/u wound care center 1 week. I answered all of her questions. Note: Gorb speech recognition biostatistics teacher software was used to create portions of this document. Sound-alike and misspelled words, as well as other biostatistics teacher errors may be contained in the documentation.
== END 2020-10-24 23:59 ==
LOC: WC 14:45
PROVIDERS: PCP Family Medicine; Referring Provider Podiatrist; Visit Provider Podiatrist
DX: E11.621 Type 2 diabetes mellitus with foot ulcer (principal); L97.422 Non-pressure chronic ulcer of left heel and midfoot with fat layer exposed; L97.412 Non-pressure chronic ulcer of right heel and midfoot with fat layer exposed; L03.116 Cellulitis of left lower limb; E11.51 Type 2 diabetes mellitus with diabetic peripheral angiopathy without gangrene; E11.42 Type 2 diabetes mellitus with diabetic polyneuropathy; A52.16 Charcot's arthropathy (tabetic); I25.10 Atherosclerotic heart disease of native coronary artery without angina pectoris; I10 Essential (primary) hypertension; Z79.4 Long term (current) use of insulin; Z79.02 Long term (current) use of antithrombotics/antiplatelets; Z79.82 Long term (current) use of aspirin; Z79.899 Other long term (current) drug therapy; I25.2 Old myocardial infarction
CPT/HCPCS: 11042; 11043; 97605; 99213; G0463

== ENCOUNTER → 2020-10-31 12:03 | Outpatient (CLI) | payer MEDICARE, OTHER, SELFPAY ==
[2020-10-26 10:48] VITALS: BMI 29.6
[2020-10-31 15:45] LABS: Absolute Lymphocyte Count 2.44 X10^3/uL (0.83-4.51); Basophil# 0.04 X10^3/uL; Basophil% 0.5 % (0-1); Eosinophil# 0.39 X10^3/uL; Eosinophils% 5.2 % (0-5); Hematocrit 36.7 % (37-47); Hemoglobin 11.3 g/dL (12.0-15.0); Lymphocyte # 2.44 X10^3/ul (0.83-4.51); Lymphocyte % 32.5 % (19-41); Mean Corp Hgb Conc 30.8 g/dL (32-36); Mean Corpuscular Hgb 27.8 pg (27.0-32.0); Mean Corpuscular Volume 90.4 fL (81-99); Mean Platelet Vol. 10.1 fl (6.2-12.0); Monocyte# 0.62 X10^3/uL; Monocyte% 8.3 % (0-10); NRBC Flagged by Analyzer 0 % (0-5); Neutrophil # 3.98 X10^3/uL (2.7-7.7); Neutrophil % 53.1 % (47-70); Platelet Count 243 K/mm3 (150-450); RBC Distribution Width CV 14.8 % (11.6-14.6); RBC Distribution Width SD 49.2 fl (35.1-43.9); Red Blood Count 4.06 M/mm3 (4.2-5.4); White Blood Count 7.5 K/mm3 (4.4-11.0)
[2020-10-31 16:18] LABS: Vitamin D,25 Hydroxy 32.4 ng/mL
[2020-10-31 16:58] LABS: ALB/GLOB Ratio 0.8 RATIO (0.9-2.4); AST(SGOT) 25 U/L (15-37); Alanine Aminotransfer ALT/SGPT 25 U/L (13-56); Albumin, Serum 3.2 g/dL (3.2-5.0); Alkaline Phosphatase 105 U/L (45-117); Anion Gap 9 (5-15); BUN 35 mg/dL (7-18); BUN/Creat Ratio 26.7 RATIO (10-20); Chloride 109 mmol/L (98-107); Creatinine, Serum 1.31 mg/dL (0.55-1.02); EST Glomerular Filtration Rate 42 mL/min (>60); Est Glom Filt Rate - Afr Amer 51 mL/min (>60); Glucose 92 mg/dL (74-106); Magnesium 2.1 mg/dL (1.6-2.6); Protein, Total 7.2 g/dL (6.4-8.2); Sodium Level 138 mmol/L (136-145)
[2020-10-31 16:59] LABS: Vitamin B12 > 2000 pg/mL (211-911)
[2020-10-31 17:00] LABS: Folates, (Folic Acid) > 100.00 ng/mL (3.1-55.4)
== END ==
PROVIDERS: PCP Family Medicine; Visit Provider Family Medicine
DX: E11.39 Type 2 diabetes mellitus with other diabetic ophthalmic complication (principal); E11.65 Type 2 diabetes mellitus with hyperglycemia; E53.8 Deficiency of other specified B group vitamins; R53.83 Other fatigue; M81.0 Age-related osteoporosis without current pathological fracture
CPT/HCPCS: 36415; 80053; 82306; 82607; 82746; 83735; 85025

== ENCOUNTER 2020-11-23 10:45 | Outpatient (RCR) | payer MEDICARE, OTHER, SELFPAY ==
[2020-10-25 00:04] VITALS: BP 159/78; PULSE 78; RESP 18; TEMP 36.1; BMI 29.6
[2020-10-26 10:48] VITALS: BP 130/45; PULSE 66; RESP 16; TEMP 36.5; BMI 29.6
--- NOTE | 2020-10-26 11:40 | PN.PCM_ITS ---
History of Present Illness Date of Service: 10/26/20 Chief Complaint: Left foot right heel History of Wound: This is 75-year-old female with diabetic neuropathy history of Charcot left foot with rocker-bottom deformity, coronary artery disease and other comorbidities has a recurrent ulcer. She denies fever, chill, nausea, vomiting. She has had delayed healing of her plantar foot ulcer secondary to rocker-bottom Charcot foot deformity, recurrent ulcers and infections. She was recently admitted to the hospital for a left foot infection and underwent incision and drainage with debridement. She is been treated with antibiotics under the management of infectious disease and is currently treated with a wound VAC. Is also noted she had a recent heart attack during her hospitalization. She completed left lower extremity vascular surgery intervention procedure and had this successfully completed at [facility] with Dr. Pang. She denies redness, odor and reports decreased left foot pain. She also has a right heel ulcer which she has been applying santyl. she tries to keep pressure off of her ulcer sites. She denies fever, chill, nausea, vomiting, redness, odor or problems with the wound VAC. Progress of Wound: improving right stable left Objective Data Objective Data Vital Signs: Vital Signs Temp Pulse Resp BP 97.7 F L 66 16 130/45 H 10/26/20 10:48 10/26/20 10:48 10/26/20 10:48 10/26/20 10:48 Oxygen Delivery Method Room Air Body Mass Index (BMI) 29.6 Physical Exam Const alert and oriented x3 General Appearance: cooperative HEENT normocephalic Extremity Extremity Narrative: No calf tenderness Diminished pulses Muscle wasting noted Right transmetatarsal amputation Left Charcot rocker-bottom foot nonacute General Extremity: edema and no tenderness to palpation of joints or extremities; Negative for cyanosis Skin Skin Narrative: no purulence, no streaking, no odor, no infection. Deeper left foot ulcer with healthy tendon exposed without bogginess. Right heel ulcer now with granular base and size reduction. Skin is atrophic and hairless bilateral General Skin Exam: Negative for erythema Neuro Neuro Narrative: lack of normal epicritic sensation via light touch is consistent with neuropathy status Psych cooperative and affect normal Debridement Note Debridement Note Post-Debridement Measurements and Additional Note: Post-Debridement Measurements/Treatment WC - Nurse 1 - General Ulcer Assessment Start: 10/26/20 10:48 Freq: Status: Active Protocol: .EDGAR Activity Type Activity Date Activity User E-Sign Co-Sign Detail Recorded Client Recorded Date Recorded By Document 10/26/20 10:48 [facility] [employer] 10/26/20 10:58 [facility] 10/26/20 10:48 - Today's Visit Information Type of service Follow-up Visit (Physician/[employer] ) Arrival Mode Wheelchair Transfer Assistance None Transfer Assist (Other) STAND BY Patient Identification Verified (Name & Yes ) Patient Requires Transmission-Based No Precautions Height and Weight Body Mass Index (BMI) 29.6 BMI Classification Overweight Vital Signs Temperature (97.8 F-99.1 F) 97.7 F L Temperature Source Temporal Pulse Rate (60-100) 66 Pulse Location Monitor Respiratory Rate (12-18) 16 Respiratory rate source Observation Oxygen Delivery Method Room Air Blood Pressure (90/60-120/80) 130/45 H Blood Pressure Mean (mm Hg) 73 Source Monitor Position Sitting Blood Pressure Location Left Arm History Since Last Visit- (Skip if this is Patient's initial visit) Have you changed medications since your Yes last visit? Any new allergies or adverse reactions No Had a fall/change in ADL's that may No increase risk of falls Signs or symptoms of abuse and/or No neglect since last visit Have you been in the hospital since your No last visit? Has dressing in place as prescribed Yes Has compression in place as prescribed N/A Has offloadiing in place as prescribed Yes Experienced any changes in pain level or No management Pain Scale: 0-10 Numeric Is Patient Pain Free? Yes - Nurse 1 - General Ulcer Measurement Start: 10/26/20 10:48 Freq: Status: Active Protocol: Activity Type Activity Date Activity User E-Sign Co-Sign Detail Recorded Client Recorded Date Recorded By Document 10/26/20 10:48 [facility] [employer] 10/26/20 10:58 [facility] 10/26/20 10:48 Wound Center Nurse 1 9-right posterior heel -Combined with other wound No -Current Size (cm) - Length 0.1 -Current Size (cm) - Width 0.1 -Current Size (cm) - Depth 0.1 -Total Square Cm 0.01 -Epithelialization Large 67-100% -Texture (Shannon-wound Skin Appearance) Assessed,Callus -Moisture (Shannon-wound Skin Appearance) Assessed,Dry/ Scaly -Color (Shannon-wound Skin Appearance) Assessed -Temperature (Shannon-wound Skin No Abnormality Appearance) (Pt Warm) -Tenderness on Palpation (Shannon-wound No Skin Appearance) -Ulcer Cleansing Rinsed/ Irrigated with Saline -Foul Odor after Cleansing No -Anesthetic Used 5% Lidocaine Gel 8. L foot plantar post op -Combined with other wound No -Current Size (cm) - Length 2.3 -Current Size (cm) - Width 3.8 -Current Size (cm) - Depth 1.4 -Total Square Cm 8.74 -Photo Taken No -Epithelialization Small 1-33% -Tunneling No -Undermining/Tunneling No -Circular Undermining No -Exudate Amt Medium -Exudate Type Serosanguineous -Wound Margin Thickened -Granulation Amt Large (67-100%) -Granulation Quality Red -Slough/Fibrin Yes -Necrosis Amt Small (1-33%) -Necrotic Tissue Type Adherent Slough -Structure Exposed Bone -Texture (Shannon-wound Skin Appearance) Assessed, Scarring -Moisture (Shannon-wound Skin Appearance) Assessed, Maceration -Color (Shannon-wound Skin Appearance) Palor -Temperature (Shannon-wound Skin No Abnormality Appearance) (Pt Warm) -Tenderness on Palpation (Shannon-wound Yes Skin Appearance) -Ulcer Cleansing SOAPY WATER -Foul Odor after Cleansing No -Anesthetic Used 4% Lidocaine Solution WC - Nurse 2 - General Ulcer CM Notes Start: 10/26/20 10:48 Freq: Status: Active Protocol: Activity Type Activity Date Activity User E-Sign Co-Sign Detail Recorded Client Recorded Date Recorded By Document 10/26/20 11:12 [employer] [id number] 10/26/20 11:24 [employer] 10/26/20 11:12 Wound Center Nurse 2 9-right posterior heel -Time 11:21 -Correct Patient Yes -Correct Side, Site, Position Yes -Correct Procedure Yes -Procedure Performed Yes -Type of Procedure Debridement -Clinical Debridement Subcutaneous -Tissue Removed Subcutaneous -Post Debridement (cm) - Length 0.4 -Post Debridement (cm) - Width 0.7 -Post Debridement (cm) - Depth 0.1 -Total Square (Post) (cm) 0.28 -Area of Debridement (cm) - Length 0.4 -Area of Debridement (cm) - Width 0.7 -Total Square (Area) (cm) 0.28 -Tunneling No -Undermining/Tunneling No -Circular Undermining No -Wound/Ulcer Outcome Not Healed -Ulcer Cleansing Rinsed/ Irrigated with Saline -Foul Odor after Cleansing No -Bioengineered Tissue No -Bleeding Controlled with Pressure -Offloading No -Treatment Response Procedure Tolerated Well -Debridement - Subq, 1st 20sq cm Yes 8. L foot plantar post op -Time 11:12 -Correct Patient Yes -Correct Side, Site, Position Yes -Correct Procedure Yes -Procedure Performed Yes -Type of Procedure Debridement -Clinical Debridement Subcutaneous -Tissue Removed Subcutaneous -Post Debridement (cm) - Length 2.4 -Post Debridement (cm) - Width 3.9 -Post Debridement (cm) - Depth 1.5 -Total Square (Post) (cm) 9.36 -Area of Debridement (cm) - Length 2.4 -Area of Debridement (cm) - Width 3.9 -Total Square (Area) (cm) 9.36 -Tunneling No -Undermining/Tunneling No -Circular Undermining No -Wound/Ulcer Outcome Not Healed -Ulcer Cleansing Rinsed/ Irrigated with Saline -Foul Odor after Cleansing No -Bioengineered Tissue Yes -Type of Bioengineered Tissue Epicord -Expiration Date 09/24/24 -Product Lot Number [id number] -Percent Used 100 -Lot number of Saline Used [id number] -Bleeding Controlled with Pressure -Offloading Yes -Type of Offloading Surgical Shoe -Treatment Response Procedure Tolerated Well -Debridement - Subq, 1st 20sq cm No -Apply Skin Sub - 1st 25 sq cm - Feet 1 -Epicord (per sq cm) 6 Pain Scale: 0-10 Numeric Is Patient Pain Free? Yes WC - Nurse 3 - General Ulcer D/C NN Start: 10/26/20 10:48 Freq: Status: Active Protocol: Activity Type Activity Date Activity User E-Sign Co-Sign Detail Recorded Client Recorded Date Recorded By Document 10/26/20 11:25 RB Desktop 10/26/20 11:28 RB Edit Result 10/26/20 11:25 RB (1) Desktop 10/26/20 11:29 RB (1) Left - Other => DALIA 10/26/20 11:25 Wound Care Nurse 3 9-right posterior heel -Other Dressing HYDROGEL -Primary Dressing Covered/Secured with Dry Gauze,Dry Gauze & Roll Gauze,Secured with Tape 8. L foot plantar post op -Negative Pressure Wound Therapy Continue -Setting (mmHg) 125 -Negative Pressure is Continuous -NPWT Application Charge ($) NPWT </= 50 sq cm Left -Other DALIA Treatment Response Procedure Tolerated Well WC - Visit Discharge Discharge Condition Stable Ambulatory Status Ambulatory, Wheelchair Transportation Private Auto Medication Reconcilliation completed & No provided to patient/care provider Clinical Summary of Care Provided Yes Wound debrided: plantar midfoot, left Wound Grade/Stage: 3 Type of Debridement: Excisional debridement Anesthesia Used: 4% Lidocaine Solution Depth: in the subcutaneous layer Percentage of wound debrided: 100 Instrument Used: #15 blade Tissue Removed: fibrous, devitalized subcutaneous, biofilm, slough Severity: Fat Layer Exposed Amount of bleeding with debridement: Mild Bleeding Controlled with: Pressure Patient tolerated procedure: Patient tolerated procedure well Assessment/Plan Assessment/Plan (1) Chronic diabetic ulcer of left foot determined by examination: CODE(S): E11.621 - Type 2 diabetes mellitus with foot ulcer; L97.529 - Non-pressure chronic ulcer of other part of left foot with unspecified severity (2) Ulcer of right foot with fat layer exposed: CODE(S): L97.512 - Non-pressure chronic ulcer of other part of right foot with fat layer exposed (3) 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: CODE(S): L97.523 - Non-pressure chronic ulcer of other part of left foot with necrosis of muscle (4) Delayed wound healing: CODE(S): T14.8XXD - Other injury of unspecified body region, subsequent encounter (5) Type 2 diabetes mellitus with diabetic polyneuropathy: CODE(S): E11.42 - Type 2 diabetes mellitus with diabetic polyneuropathy QUALIFIERS: Diabetes mellitus chcf insulin use: with buttermaker use Qualified Code(s): E11.42 - Type 2 diabetes mellitus with diabetic polyneuropathy; Z79.4 - intermediate (current) use of insulin (6) Peripheral arterial occlusive disease: CODE(S): I77.9 - Disorder of arteries and arterioles, unspecified PLAN: The patient tolerated the procedure well. I reviewed and discussed her case. Debridement was performed as noted bilateral including right e xcisional subcutaneous and left excisional tendon/muscle. To continue wound VAC continues on 125 mmHg left foot; to keep intact for one week. To change right heel dressing daily with Santyl. To wash adjacent sites with soap and water. Prior to wound VAC application she was verbally consented for application of advanced wound healing product, epi cord. This was applied according to standard protocol. Indications benefits and anticipated applications of management were reviewed. This was further secured with a wound veil and Steri- Strips. She tolerated the procedure well. This is medically necessary for limb salvage and prior insurance authorization was obtained. She has had ongoing delays in healing and is at risk for further limb loss. Cultures from surgery (09/20) with coag neg staph, strep, enterococcus. ID on consult. Complete cephalexin 500 mg q 8 hrs for 4 weeks at time of discharge. MRI w/out osteo from recent hospital admission. To follow up as advised with Dr. Webb. She does not have local signs of cellulitis today and this is significantly improved. Labs: 09-19-20 with ESR 44. 4- with A1c of 7.1%.?30? white blood cell count 6.8. Vascular surgery intervention was performed successfully at [facility] this past week with Dr. Pang w/ antioplasty at femoral through adductor into popliteal (balloon). To maintain non weightbearing status with the use of assistive devices (knee roller/walker) left lower extremity. I recommend she hangs her right heel over stacked pillows or blankets while seated or laying down. Pain controlled with home pain medication regimen per PCP. Imaging: Weightbearing left ankle and foot x-rays were reviewed from 10-14 without acute Charcot or osseous destruction at the ankle or hindfoot where her recent subjective pain is located. There is also no soft tissue emphysema or foreign body noted to the foot adjacent to the ulcer site. Prior rocker-bottom Charcot midfoot is noted with fragmentation and consolidation is consistent with prior x-rays. To continue nutritional supplementation to optimize healing. She is taking Blue and has also been trying to eat more fresh foods. She is working on more detailed diet planning with her primary care physician. F/u wound care center 1 week. I answered all of her questions. Note: [employer] speech recognition mastic floor layer software was used to create por tions of this document. Sound-alike and misspelled words, as well as other mastic floor layer errors may be contained in the documentation.
[2020-11-02 11:03] VITALS: BP 141/61; PULSE 74; RESP 18; TEMP 36.4; BMI 29.6
--- NOTE | 2020-11-02 12:36 | PN.PCM_ITS ---
History of Present Illness Date of Service: 11/02/20 Chief Complaint: Left foot right heel History of Wound: This is 75-year-old female with diabetic neuropathy history of Charcot left foot with rocker-bottom deformity, coronary artery disease and other comorbidities has a recurrent ulcer. She denies fever, chill, nausea, vomiting. She has had delayed healing of her plantar foot ulcer secondary to rocker-bottom Charcot foot deformity, recurrent ulcers and infections. She was recently admitted to the hospital for a left foot infection and underwent incision and drainage with debridement. She is been treated with antibiotics under the management of infectious disease and is currently treated with a wound VAC. Is also noted she had a recent heart attack during her hospitalization. She completed left lower extremity vascular surgery intervention procedure and had this successfully completed at [facility] with Dr. Pang. She denies redness, odor and reports decreased left foot pain. She also has a right heel ulcer which she has been applying santyl. she tries to keep pressure off of her ulcer sites. She denies fever, chill, nausea, vomiting, redness, odor or problems with the wound VAC. She and epi cord skin substitute applied to the left foot last week and kept this intact. Progress of Wound: improving right Improving left Objective Data Objective Data Vital Signs: Vital Signs Temp Pulse Resp BP 97.5 F L 74 18 141/61 H 11/02/20 11:03 11/02/20 11:03 11/02/20 11:03 11/02/20 11:03 Oxygen Delivery Method Room Air Body Mass Index (BMI) 29.6 Physical Exam Const alert and oriented x3 General Appearance: cooperative HEENT normocephalic Extremity Extremity Narrative: No calf tenderness Diminished pulses Muscle wasting noted Right transmetatarsal amputation Left Charcot rocker-bottom foot nonacute General Extremity: edema and no tenderness to palpation of joints or extremities; Negative for cyanosis Skin Skin Narrative: no purulence, no streaking, no odor, no infection. Deeper left foot ulcer with reduced depth and no tendon, bone, joint exposure. Right heel ulcer now with granular base and size reduction. Skin is atrophic and hairless bilateral General Skin Exam: Negative for erythema Neuro Neuro Narrative: lack of normal epicritic sensation via light touch is consistent with neuropathy status Psych cooperative and affect normal Debridement Note Debridement Note Post-Debridement Measurements and Additional Note: Post-Debridement Measurements/Treatment WC - Nurse 1 - General Ulcer Assessment Start: 10/26/20 10:48 Freq: Status: Active Protocol: EUGENE Activity Type Activity Date Activity User E-Sign Co-Sign Detail Recorded Client Recorded Date Recorded By Document 10/26/20 10:48 [facility] Desktop 10/26/20 10:58 [facility] Document 11/02/20 11:03 DL [id number] 11/02/20 11:11 DL 10/26/20 11/02/20 10:48 11:03 WC - Today's Visit Information Type of service Follow-up Visit Follow-up Visit (Physician/LONG DISTANCE OPERATOR (Physician/LONG DISTANCE OPERATOR ) ) Arrival Mode Wheelchair Stretcher Transfer Assistance None Manual Transfer Assist (Other) STAND BY x1 Patient Identification Verified (Name & Yes ) Patient Requires Transmission-Based No No Precautions Finger Stick Blood Sugar(mg/dl) (if 134 indicated): Blood Sugar Stated by Patient Height and Weight Body Mass Index (BMI) 29.6 29.6 BMI Classification Overweight Overweight Vital Signs Temperature (97.8 F-99.1 F) 97.7 F L 97.5 F L Temperature Source Temporal Temporal Pulse Rate (60-100) 66 74 Pulse Location Monitor Monitor Respiratory Rate (12-18) 16 18 Respiratory rate source Observation Observation Oxygen Delivery Method Room Air Blood Pressure (90/60-120/80) 130/45 H 141/61 H Blood Pressure Mean (mm Hg) 73 87 Source Monitor Monitor Position Sitting Blood Pressure Location Left Arm History Since Last Visit- (Skip if this is Patient's initial visit) Have you changed medications since your Yes No last visit? Any new allergies or adverse reactions No No Had a fall/change in ADL's that may No No increase risk of falls Signs or symptoms of abuse and/or No No neglect since last visit Have you been in the hospital since your No No last visit? Has dressing in place as prescribed Yes Yes Has compression in place as prescribed N/A Yes Has offloadiing in place as prescribed Yes Yes Experienced any changes in pain level or No No management Left Footwear No Footwear Right Footwear Slipper Pain Scale: 0-10 Numeric Is Patient Pain Free? Yes Yes AMINAH - Nurse 1 - General Ulcer Measurement Start: 10/26/20 10:48 Freq: Status: Active Protocol: Activity Type Activity Date Activity User E-Sign Co-Sign Detail Recorded Client Recorded Date Recorded By Document 10/26/20 10:48 [facility] Desktop 10/26/20 10:58 [facility] Document 11/02/20 11:03 DL [id number] 11/02/20 11:11 DL 10/26/20 11/02/20 10:48 11:03 Wound Center Nurse 1 9-right posterior heel -Combined with other wound No -Current Size (cm) - Length 0.1 0.1 -Current Size (cm) - Width 0.1 0.1 -Current Size (cm) - Depth 0.1 0.1 -Total Square Cm 0.01 0.01 -Photo Taken No -Epithelialization Large 67-100% -Exudate Amt None Present -Wound Margin Thickened -Granulation Amt Small (1-33%) -Granulation Quality Pale -Necrotic Tissue Type Adherent Slough -Structure Exposed N/A -Texture (Shannon-wound Skin Appearance) Assessed,Callus Callus,Scarring -Moisture (Shannon-wound Skin Appearance) Assessed,Dry/ Dry/Scaly Scaly -Color (Shannon-wound Skin Appearance) Assessed Assessed -Temperature (Shannon-wound Skin No Abnormality No Abnormality Appearance) (Pt Warm) (Pt Warm) -Tenderness on Palpation (Shannon-wound No No Skin Appearance) -Ulcer Cleansing Rinsed/ Wound Cleanser Irrigated with Saline -Foul Odor after Cleansing No No -Anesthetic Used 5% Lidocaine 5% Lidocaine Gel Gel 8. L foot plantar post op -Combined with other wound No -Current Size (cm) - Length 2.3 1.9 -Current Size (cm) - Width 3.8 3.2 -Current Size (cm) - Depth 1.4 1.6 -Total Square Cm 8.74 6.08 -Photo Taken No No -Epithelialization Small 1-33% -Tunneling No -Undermining/Tunneling No -Circular Undermining No -Exudate Amt Medium Medium -Exudate Type Serosanguineous Serosanguineous -Wound Margin Thickened -Granulation Amt Large (67-100%) Large (67-100%) -Granulation Quality Red Red -Slough/Fibrin Yes -Necrosis Amt Small (1-33%) Small (1-33%) -Necrotic Tissue Type Adherent Slough Adherent Slough -Structure Exposed Bone N/A -Texture (Shannon-wound Skin Appearance) Assessed, Scarring Scarring -Moisture (Shannon-wound Skin Appearance) Assessed, Maceration Maceration -Color (Shannon-wound Skin Appearance) Palor No Abnormality -Temperature (Shannon-wound Skin No Abnormality No Abnormality Appearance) (Pt Warm) (Pt Warm) -Tenderness on Palpation (Shannon-wound Yes No Skin Appearance) -Ulcer Cleansing SOAPY WATER Wound Cleanser -Foul Odor after Cleansing No No -Anesthetic Used 4% Lidocaine 4% Lidocaine Solution Solution WC - Nurse 2 - General Ulcer CM Notes Start: 10/26/20 10:48 Freq: Status: Active Protocol: Activity Type Activity Date Activity User E-Sign Co-Sign Detail Recorded Client Recorded Date Recorded By Document 10/26/20 11:12 [id number] 10/26/20 11:24 Document 11/02/20 11:24 [id number] 11/02/20 11:31 10/26/20 11/02/20 11:12 11:24 Wound Center Nurse 2 9-right posterior heel -Time 11:21 11:25 -Correct Patient Yes Yes -Correct Side, Site, Position Yes Yes -Correct Procedure Yes Yes -Procedure Performed Yes Yes -Type of Procedure Debridement Debridement -Clinical Debridement Subcutaneous Subcutaneous -Tissue Removed Subcutaneous Subcutaneous -Post Debridement (cm) - Length 0.4 0.2 -Post Debridement (cm) - Width 0.7 0.4 -Post Debridement (cm) - Depth 0.1 0.2 -Total Square (Post) (cm) 0.28 0.08 -Area of Debridement (cm) - Length 0.4 0.2 -Area of Debridement (cm) - Width 0.7 0.4 -Total Square (Area) (cm) 0.28 0.08 -Tunneling No No -Undermining/Tunneling No No -Circular Undermining No No -Wound/Ulcer Outcome Not Healed Not Healed -Ulcer Cleansing Rinsed/ Rinsed/ Irrigated with Irrigated with Saline Saline -Foul Odor after Cleansing No No -Bioengineered Tissue No No -Bleeding Controlled with Pressure Pressure -Offloading No No -Treatment Response Procedure Procedure Tolerated Well Tolerated Well -Debridement - Subq, 1st 20sq cm Yes Yes 8. L foot plantar post op -Time 11:12 11:26 -Correct Patient Yes Yes -Correct Side, Site, Position Yes Yes -Correct Procedure Yes Yes -Procedure Performed Yes Yes -Type of Procedure Debridement Debridement -Clinical Debridement Subcutaneous Subcutaneous -Tissue Removed Subcutaneous Subcutaneous -Post Debridement (cm) - Length 2.4 1.9 -Post Debridement (cm) - Width 3.9 3.2 -Post Debridement (cm) - Depth 1.5 1.2 -Total Square (Post) (cm) 9.36 6.08 -Area of Debridement (cm) - Length 2.4 1.9 -Area of Debridement (cm) - Width 3.9 3.2 -Total Square (Area) (cm) 9.36 6.08 -Tunneling No No -Undermining/Tunneling No No -Circular Undermining No No -Wound/Ulcer Outcome Not Healed Not Healed -Ulcer Cleansing Rinsed/ Rinsed/ Irrigated with Irrigated with Saline Saline -Foul Odor after Cleansing No No -Bioengineered Tissue Yes Yes -Type of Bioengineered Tissue Epicord Epicord -Expiration Date 09/24/24 01/25/25 -Product Lot Number [id number] -Percent Used 100 100 -Lot number of Saline Used [id number] -Bleeding Controlled with Pressure Pressure -Offloading Yes No -Type of Offloading Surgical Shoe -Treatment Response Procedure Procedure Tolerated Well Tolerated Well -Debridement - Subq, 1st 20sq cm No No -Apply Skin Sub - 1st 25 sq cm - Feet 1 1 -Epicord (per sq cm) 6 6 Pain Scale: 0-10 Numeric Is Patient Pain Free? Yes Yes WC - Nurse 3 - General Ulcer D/C NN Start: 10/26/20 10:48 Freq: Status: Active Protocol: Activity Type Activity Date Activity User E-Sign Co-Sign Detail Recorded Client Recorded Date Recorded By Document 10/26/20 11:25 RB Desktop 10/26/20 11:28 RB Edit Result 10/26/20 11:25 RB (1) Desktop 10/26/20 11:29 RB Document 11/02/20 11:37 RB [id number] 11/02/20 11:39 RB (1) Left - Other => DALIA 10/26/20 11/02/20 11:25 11:37 Wound Care Nurse 3 9-right posterior heel -Other Dressing HYDROGEL -Primary Dressing Covered/Secured with Dry Gauze,Dry Dry Gauze,Dry Gauze & Roll Gauze & Roll Gauze,Secured Gauze,Secured with Tape with Tape 8. L foot plantar post op -Negative Pressure Wound Therapy Continue Continue -Setting (mmHg) 125 125 -Negative Pressure is Continuous Continuous -Other Dressing epicord, veil and steristrips -NPWT Application Charge ($) NPWT </= 50 sq NPWT </= 50 sq cm cm Left -Other DALIA abd under vac tubing and dalia wrap Treatment Response Procedure Procedure Tolerated Well Tolerated Well WC - Visit Discharge Discharge Condition Stable Stable Ambulatory Status Ambulatory, Wheelchair Wheelchair Transportation Private Auto Private Auto Accompanied by Medication Reconcilliation completed & No No provided to patient/care provider Clinical Summary of Care Provided Yes Yes Wound debrided: plantar left foot Wound Grade/Stage: 3 Type of Debridement: Excisional debridement Anesthesia Used: 4% Lidocaine Solution Depth: in the subcutaneous layer Percentage of wound debrided: 100 Instrument Used: #15 blade Tissue Removed: fibrous, devitalized subcutaneous, biofilm, slough Severity: Fat Layer Exposed Amount of bleeding with debridement: Mild Bleeding Controlled with: Pressure Patient tolerated procedure: Patient tolerated procedure well Assessment/Plan Assessment/Plan (1) Chronic diabetic ulcer of left foot determined by examination: CODE(S): E11.621 - Type 2 diabetes mellitus with foot ulcer; L97.529 - Non-pressure chronic ulcer of other part of left foot with unspecified severity (2) Ulcer of right foot with fat layer exposed: CODE(S): L97.512 - Non-pressure chronic ulcer of other part of right foot with fat layer exposed (3) 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: CODE(S): L97.523 - Non-pressure chronic ulcer of other part of left foot with necrosis of muscle (4) Delayed wound healing: CODE(S): T14.8XXD - Other injury of unspecified body region, subsequent encounter (5) Type 2 diabetes mellitus with diabetic polyneuropathy: CODE(S): E11.42 - Type 2 diabetes mellitus with diabetic polyneuropathy QUALIFIERS: Diabetes mellitus exterminator helper insulin use: with skilled nursing use Qualified Code(s): E11.42 - Type 2 diabetes mellitus with diabetic polyneuropathy; Z79.4 - snf (current) use of insulin (6) Peripheral arterial occlusive disease: CODE(S): I77.9 - Disorder of arteries and arterioles, unspecified PLAN: Procedure- Location: right posterior heel grade 1 Excisional debridement performed Anesthesia: 5% lidocaine plain Debridement layer: subcutaneous Amount of debridement: 100% Instrumentation used: 15 blade Tissue debrided: fibrous, devitalized subcutaneous, biofilm, slough Exposed tissue: fat layer Bleeding: mild Hemostasis controlled: pressure The patient tolerated the procedure well The patient tolerated the procedure well. I reviewed and discussed her case. Debridement was performed as noted bilateral including right excisional subcutaneous and left excisional tendon/muscle. To continue wound VAC continues on 125 mmHg left foot; to keep intact. Nursing will change this midweek however we will leave the skin substitute in place. To change right heel dressing daily with Santyl. To wash adjacent sites with soap and water. Prior to wound VAC application she was verbally consented for application of advanced wound healing product, epi cord. This was applied according to standard protocol. Indications benefits and anticipated applications of management were reviewed. This was further secured with a wound veil and Steri- Strips. She tolerated the procedure well. 100% of the advanced skin substitute was utilized. This is medically necessary for limb salvage and prior insurance authorization was obtained. She has had ongoing delays in healing and is at risk for further limb loss. Cultures from surgery (09/20) with coag neg staph, strep, enterococcus. ID on consult. Complete cephalexin 500 mg q 8 hrs for 4 weeks at time of discharge. MRI w/out osteo from recent hospital admission. To follow up as advised with Dr. Webb. She does not have local signs of cellulitis today and this is significantly improved. Labs: 09-19-20 with ESR 44. 4-27-21 with A1c of 7.1%.4?30?21 white blood cell count 6.8. Vascular surgery intervention was performed successfully at [facility] this past week with Dr. Pang w/ antioplasty at femoral through adductor into popliteal (balloon). To maintain non weightbearing status with the use of assistive devices (knee roller/walker) left lower extremity. I recommend she hangs her right heel over stacked pillows or blankets while seated or laying down. Pain controlled with home pain medication regimen per PCP. Imaging: Weightbearing left ankle and foot x-rays were reviewed from 10-14 without acute Charcot or osseous destruction at the ankle or hindfoot where her recent subjective pain is located. There is also no soft tissue emphysema or foreign body noted to the foot adjacent to the ulcer site. Prior rocker-bottom Charcot midfoot is noted with fragmentation and consolidation is consistent with prior x-rays. To continue nutritional supplementation to optimize healing. She is taking Blue and has also been trying to eat more fresh foods. She is working on more detailed diet planning with her primary care physician. F/u wound care center 1 week. I answered all of her questions. Note: [employer] speech recognition evaporator operator software was used to create portions of this document. Sound-alike and misspelled words, as well as other evaporator operator errors may be contained in the documentation.
[2020-11-09 11:09] VITALS: BP 158/43; PULSE 67; RESP 18; TEMP 35.5; BMI 29.6
--- NOTE | 2020-11-09 12:58 | PCM.WC.PN ---
History of Present Illness Date of Service: 11/09/20 Chief Complaint: Left foot right heel History of Wound: This is 75-year-old female with diabetic neuropathy history of Charcot left foot with rocker-bottom deformity, coronary artery disease and other comorbidities has a recurrent ulcer. She has had delayed healing of her plantar foot ulcer secondary to rocker-bottom Charcot foot deformity, recurrent ulcers and infections. She was previously admitted to the hospital for a left foot infection and underwent incision and drainage with debridement. She is been treated with antibiotics under the management of infectious disease and is currently treated with a wound VAC. She completed left lower extremity vascular surgery intervention procedure and had this successfully completed at [facility] with Dr. Pang. She denies redness, odor and reports decreased left foot pain. She denies fever, chill, nausea, vomiting. She also has a right heel ulcer which she has been applying santyl. she tries to keep pressure off of her ulcer sites. She and epi cord skin substitute applied to the left foot last week and kept this was accidently disrupted yesterday. She denies right heel drainage. Progress of Wound: healed right Improving left Objective Data Objective Data Vital Signs: Vital Signs Temp Pulse Resp BP 96 F L 67 18 158/43 H 11/09/20 11:09 11/09/20 11:09 11/09/20 11:09 11/09/20 11:09 Oxygen Delivery Method Room Air Body Mass Index (BMI) 29.6 Physical Exam Const alert and oriented x3 General Appearance: cooperative HEENT normocephalic Extremity Extremity Narrative: No calf tenderness Diminished pulses Muscle wasting noted Right transmetatarsal amputation Left Charcot rocker-bottom foot nonacute General Extremity: edema and no tenderness to palpation of joints or extremities; Negative for cyanosis Skin Skin Narrative: no purulence, no streaking, no odor, no infection. Deeper left foot ulcer with reduced depth and no tendon, bone, joint exposure. Right heel ulcer is healed with full epithelialization. Skin is atrophic and hairless bilateral General Skin Exam: Negative for erythema Neuro Neuro Narrative: lack of normal epicritic sensation via light touch is consistent with neuropathy status Psych cooperative and affect normal Debridement Note Debridement Note Post-Debridement Measurements and Additional Note: Post-Debridement Measurements/Treatment AMINAH - Nurse 1 - General Ulcer Assessment Start: 10/26/20 10:48 Freq: Status: Active Protocol: WC.LOWEXT Activity Type Activity Date Activity User E-Sign Co-Sign Detail Recorded Client Recorded Date Recorded By Document 10/26/20 10:48 BMF Desktop 10/26/20 10:58 BM Document 11/02/20 11:03 DL [id number] 11/02/20 11:11 DL Document 11/09/20 11:09 RB Desktop 11/09/20 11:19 RB 10/26/20 11/02/20 11/09/20 10:48 11:03 11:09 WC - Today's Visit Information Type of service Follow-up Visit Follow-up Visit Follow-up Visit (Physician/MOTION PICTURE PRINTER (Physician/MOTION PICTURE PRINTER (Physician/MOTION PICTURE PRINTER ) ) ) Arrival Mode Wheelchair Stretcher Ambulatory Transfer Assistance None Manual None Transfer Assist (Other) STAND BY x1 Patient Identification Verified (Name & Yes Yes ) Patient Requires Transmission-Based No No No Precautions Finger Stick Blood Sugar(mg/dl) (if 134 indicated): Blood Sugar Stated by Patient Height and Weight Body Mass Index (BMI) 29.6 29.6 29.6 BMI Classification Overweight Overweight Overweight Vital Signs Temperature (97.8 F-99.1 F) 97.7 F L 97.5 F L 96 F L Temperature Source Temporal Temporal Oral Pulse Rate (60-100) 66 74 67 Pulse Location Monitor Monitor Monitor Respiratory Rate (12-18) 16 18 18 Respiratory rate source Observation Observation Observation Oxygen Delivery Method Room Air Blood Pressure (90/60-120/80) 130/45 H 141/61 H 158/43 H Blood Pressure Mean (mm Hg) 73 87 81 Source Monitor Monitor Monitor Position Sitting Semi-Fowlers Blood Pressure Location Left Arm Left Arm History Since Last Visit- (Skip if this is Patient's initial visit) Have you changed medications since your Yes No No last visit? Any new allergies or adverse reactions No No No Had a fall/change in ADL's that may No No No increase risk of falls Signs or symptoms of abuse and/or No No No neglect since last visit Have you been in the hospital since your No No No last visit? Has dressing in place as prescribed Yes Yes Yes Has compression in place as prescribed N/A Yes No Has offloadiing in place as prescribed Yes Yes No Experienced any changes in pain level or No No No management Left Footwear No Footwear Regular Shoe Right Footwear Slipper Regular Shoe Pain Scale: 0-10 Numeric Is Patient Pain Free? Yes Yes Yes WC - Nurse 1 - General Ulcer Measurement Start: 10/26/20 10:48 Freq: Status: Active Protocol: Activity Type Activity Date Activity User E-Sign Co-Sign Detail Recorded Client Recorded Date Recorded By Document 10/26/20 10:48 BMF Desktop 10/26/20 10:58 BM Document 11/02/20 11:03 DL [id number] 11/02/20 11:11 DL Document 11/09/20 11:09 RB Desktop 11/09/20 11:19 RB 10/26/20 11/02/20 11/09/20 10:48 11:03 11:09 Wound Center Nurse 1 9-right posterior heel -Combined with other wound No No -Current Size (cm) - Length 0.1 0.1 0.1 -Current Size (cm) - Width 0.1 0.1 0.1 -Current Size (cm) - Depth 0.1 0.1 0.1 -Total Square Cm 0.01 0.01 0.01 -Photo Taken No -Epithelialization Large 67-100% -Tunneling No -Undermining/Tunneling No -Circular Undermining No -Exudate Amt None Present None Present -Wound Margin Thickened Flat & Intact -Granulation Amt Small (1-33%) Medium (34-66%) -Granulation Quality Pale [place] -Slough/Fibrin Yes -Necrosis Amt Medium (34-66%) -Necrotic Tissue Type Adherent Slough Adherent Slough -Structure Exposed N/A N/A -Texture (Shannon-wound Skin Appearance) Assessed,Callus Callus,Scarring Assessed,Callus -Moisture (Shannon-wound Skin Appearance) Assessed,Dry/ Dry/Scaly Assessed Scaly -Color (Shannon-wound Skin Appearance) Assessed Assessed Assessed -Temperature (Shannon-wound Skin No Abnormality No Abnormality No Abnormality Appearance) (Pt Warm) (Pt Warm) (Pt Warm) -Tenderness on Palpation (Shannon-wound No No No Skin Appearance) -Ulcer Cleansing Rinsed/ Wound Cleanser Wound Cleanser Irrigated with Saline -Foul Odor after Cleansing No No No -Anesthetic Used 5% Lidocaine 5% Lidocaine 4% Lidocaine Gel Gel Solution 8. L foot plantar post op -Combined with other wound No No -Current Size (cm) - Length 2.3 1.9 1.7 -Current Size (cm) - Width 3.8 3.2 2.5 -Current Size (cm) - Depth 1.4 1.6 1.1 -Total Square Cm 8.74 6.08 4.25 -Photo Taken No No -Epithelialization Small 1-33% -Tunneling No No -Undermining/Tunneling No No -Circular Undermining No No -Exudate Amt Medium Medium Medium -Exudate Type Serosanguineous Serosanguineous Serosanguineous -Wound Margin Thickened Thickened & Rolled Under -Granulation Amt Large (67-100%) Large (67-100%) Medium (34-66%) -Granulation Quality Red Red [place] -Slough/Fibrin Yes Yes -Necrosis Amt Small (1-33%) Small (1-33%) Medium (34-66%) -Necrotic Tissue Type Adherent Slough Adherent Slough Adherent Slough -Structure Exposed Bone N/A N/A -Texture (Shannon-wound Skin Appearance) Assessed, Scarring Scarring Scarring -Moisture (Shannon-wound Skin Appearance) Assessed, Maceration Assessed Maceration -Color (Shannon-wound Skin Appearance) Palor No Abnormality Assessed -Temperature (Shannon-wound Skin No Abnormality No Abnormality No Abnormality Appearance) (Pt Warm) (Pt Warm) (Pt Warm) -Tenderness on Palpation (Shannon-wound Yes No No Skin Appearance) -Ulcer Cleansing SOAPY WATER Wound Cleanser Wound Cleanser -Foul Odor after Cleansing No No No -Anesthetic Used 4% Lidocaine 4% Lidocaine 4% Lidocaine Solution Solution Solution WC - Nurse 2 - General Ulcer CM Notes Start: 10/26/20 10:48 Freq: Status: Active Protocol: Activity Type Activity Date Activity User E-Sign Co-Sign Detail Recorded Client Recorded Date Recorded By Document 10/26/20 11:12 JF [id number] 10/26/20 11:24 JF Document 11/02/20 11:24 JF [id number] 11/02/20 11:31 JF Document 11/09/20 12:16 PL [id number] 11/09/20 12:20 PL 10/26/20 11/02/20 11/09/20 11:12 11:24 12:16 Wound Center Nurse 2 9-right posterior heel -Time 11:21 11:25 -Correct Patient Yes Yes -Correct Side, Site, Position Yes Yes -Correct Procedure Yes Yes -Procedure Performed Yes Yes -Type of Procedure Debridement Debridement -Clinical Debridement Subcutaneous Subcutaneous -Tissue Removed Subcutaneous Subcutaneous -Post Debridement (cm) - Length 0.4 0.2 -Post Debridement (cm) - Width 0.7 0.4 -Post Debridement (cm) - Depth 0.1 0.2 -Total Square (Post) (cm) 0.28 0.08 -Area of Debridement (cm) - Length 0.4 0.2 -Area of Debridement (cm) - Width 0.7 0.4 -Total Square (Area) (cm) 0.28 0.08 -Tunneling No No -Undermining/Tunneling No No -Circular Undermining No No -Wound/Ulcer Outcome Not Healed Not Healed -Ulcer Cleansing Rinsed/ Rinsed/ Irrigated with Irrigated with Saline Saline -Foul Odor after Cleansing No No -Bioengineered Tissue No No -Bleeding Controlled with Pressure Pressure -Offloading No No -Treatment Response Procedure Procedure Tolerated Well Tolerated Well -Debridement - Subq, 1st 20sq cm Yes Yes 8. L foot plantar post op -Time 11:12 11:26 11:33 -Correct Patient Yes Yes Yes -Correct Side, Site, Position Yes Yes Yes -Correct Procedure Yes Yes Yes -Procedure Performed Yes Yes Yes -Type of Procedure Debridement Debridement Debridement -Clinical Debridement Subcutaneous Subcutaneous Subcutaneous -Tissue Removed Subcutaneous Subcutaneous Subcutaneous -Post Debridement (cm) - Length 2.4 1.9 1.7 -Post Debridement (cm) - Width 3.9 3.2 2.5 -Post Debridement (cm) - Depth 1.5 1.2 1.1 -Total Square (Post) (cm) 9.36 6.08 4.25 -Area of Debridement (cm) - Length 2.4 1.9 1.7 -Area of Debridement (cm) - Width 3.9 3.2 2.5 -Total Square (Area) (cm) 9.36 6.08 4.25 -Tunneling No No No -Undermining/Tunneling No No No -Circular Undermining No No No -Wound/Ulcer Outcome Not Healed Not Healed Not Healed -Ulcer Cleansing Rinsed/ Rinsed/ Rinsed/ Irrigated with Irrigated with Irrigated with Saline Saline Saline -Foul Odor after Cleansing No No No -Bioengineered Tissue Yes Yes Yes -Type of Bioengineered Tissue Epicord Epicord Epicord -Expiration Date 09/24/24 01/25/25 08/25/25 -Product Lot Number [id number] -Percent Used 100 100 100 -Lot number of Saline Used [id number] -Bleeding Controlled with Pressure Pressure Pressure -Offloading Yes No -Type of Offloading Surgical Shoe -Treatment Response Procedure Procedure Procedure Tolerated Well Tolerated Well Tolerated Well -Debridement - Subq, 1st 20sq cm No No No -Apply Skin Sub - 1st 25 sq cm - Feet 1 1 1 -Epicord (per sq cm) 6 6 6 Pain Scale: 0-10 Numeric Is Patient Pain Free? Yes Yes Yes - Nurse 3 - General Ulcer D/C NN Start: 10/26/20 10:48 Freq: Status: Active Protocol: Activity Type Activity Date Activity User E-Sign Co-Sign Detail Recorded Client Recorded Date Recorded By Document 10/26/20 11:25 RB Desktop 10/26/20 11:28 RB Edit Result 10/26/20 11:25 RB (1) Desktop 10/26/20 11:29 RB Document 11/02/20 11:37 RB [id number] 11/02/20 11:39 RB Document 11/09/20 11:52 RB [id number] 11/09/20 11:52 RB (1) Left - Other => DALIA 10/26/20 11/02/20 11/09/20 11:25 11:37 11:52 Wound Care Nurse 3 9-right posterior heel -Other Dressing HYDROGEL -Primary Dressing Covered/Secured with Dry Gauze,Dry Dry Gauze,Dry Gauze & Roll Gauze & Roll Gauze,Secured Gauze,Secured with Tape with Tape 8. L foot plantar post op -Ulcer Cleansing Wound Cleanser -Negative Pressure Wound Therapy Continue Continue Continue -Setting (mmHg) 125 125 125 -Negative Pressure is Continuous Continuous Continuous -Other Dressing epicord, veil and steristrips -NPWT Application Charge ($) NPWT </= 50 sq NPWT </= 50 sq NPWT </= 50 sq cm cm cm Left -Other DALIA abd under vac tubing and dalia wrap Treatment Response Procedure Procedure Tolerated Well Tolerated Well Pain Scale: 0-10 Numeric Is Patient Pain Free? Yes WC - Visit Discharge Discharge Condition Stable Stable Stable Ambulatory Status Ambulatory, Wheelchair Wheelchair Wheelchair Transportation Private Auto Private Auto Private Auto Accompanied by Medication Reconcilliation completed & No No No provided to patient/care provider Clinical Summary of Care Provided Yes Yes Yes Wound debrided: plantar left foot Wound Grade/Stage: 3 Type of Debridement: Excisional debridement Anesthesia Used: 4% Lidocaine Solution Depth: in the subcutaneous layer Percentage of wound debrided: 100 Instrument Used: #15 blade Tissue Removed: fibrous, devitalized subcutaneous, biofilm, slough Severity: Fat Layer Exposed Amount of bleeding with debridement: Mild Bleeding Controlled with: Pressure Patient tolerated procedure: Patient tolerated procedure well Assessment/Plan Assessment/Plan (1) Chronic diabetic ulcer of left foot determined by examination: CODE(S): E11.621 - Type 2 diabetes mellitus with foot ulcer; L97.529 - Non-pressure chronic ulcer of other part of left foot with unspecified severity (2) Ulcer of right foot with fat layer exposed: CODE(S): L97.512 - Non-pressure chronic ulcer of other part of right foot with fat layer exposed (3) 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: CODE(S): L97.523 - Non-pressure chronic ulcer of other part of left foot with necrosis of muscle (4) Delayed wound healing: CODE(S): T14.8XXD - Other injury of unspecified body region, subsequent encounter (5) Type 2 diabetes mellitus with diabetic polyneuropathy: CODE(S): E11.42 - Type 2 diabetes mellitus with diabetic polyneuropathy QUALIFIERS: Diabetes mellitus long term acute care registered nurse insulin use: with custodial use Qualified Code(s): E11.42 - Type 2 diabetes mellitus with diabetic polyneuropathy; 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 I reviewed and discussed her case. Debridement was performed excisional subcutaneous and left excisional tendon/muscle. To continue wound VAC continues on 125 mmHg left foot; to keep intact until follow up next week. D/c right foot dressing. Ok to apply a dry gauze to allow protective skin remodeling. Prior to wound VAC application she was verbally consented for application of advanced wound healing product, epi cord. This was applied according to standard protocol. Indications benefits and anticipated applications of management were reviewed. This was further secured with a wound veil and Steri-Strips. She tolerated the procedure well. 100% of the advanced skin substitute was utilized. This is medically necessary for limb salvage and prior insurance authorization was obtained. She has had ongoing delays in healing and is at risk for further limb loss. Cultures from surgery (09/20) with coag neg staph, strep, enterococcus. ID on consult. Complete cephalexin 500 mg q 8 hrs for 4 weeks at time of discharge. MRI w/out osteo from recent hospital admission. To follow up as advised with Dr. Webb. She does not have local signs of cellulitis today and this is significantly improved. Labs: 09-19-20 with ESR 44. 4- with A1c of 7.1%.?? white blood cell count 6.8. Vascular surgery intervention was performed successfully at [facility] this past week with Dr. Pang w/ antioplasty at femoral through adductor into popliteal (balloon). To maintain non weightbearing status with the use of assistive devices (knee roller/walker) left lower extremity. I recommend she hangs her right heel over stacked pillows or blankets while seated or laying down. Pain controlled with home pain medication regimen per PCP. Imaging: Weightbearing left ankle and foot x-rays were reviewed from 10-14 without acute Charcot or osseous destruction at the ankle or hindfoot where her recent subjective pain is located. There is also no soft tissue emphysema or foreign body noted to the foot adjacent to the ulcer site. Prior rocker-bottom Charcot midfoot is noted with fragmentation and consolidation is consistent with prior x-rays. To continue nutritional supplementation to optimize healing. She is taking Blue and has also been trying to eat more fresh foods. She is working on more detailed diet planning with her primary care physician. F/u wound care center 1 week. I answered all of her questions. Note: [employer] speech recognition wire bound box machine operator software was used to create portions of this document. Sound-alike and misspelled words, as well as other wire bound box machine operator errors may be contained in the documentation.
[2020-11-16 10:59] VITALS: BP 136/54; PULSE 70; RESP 18; TEMP 36.5; BMI 29.6
--- NOTE | 2020-11-16 11:01 | WC ---
epicord and steristrips left in place
--- NOTE | 2020-11-16 12:02 | PN.PCM_ITS ---
History of Present Illness Date of Service: 11/16/20 Chief Complaint: Left foot History of Wound: This is 75-year-old female with diabetic neuropathy history of Charcot left foot with rocker-bottom deformity, coronary artery disease and other comorbidities has a recurrent ulcer. She has had delayed healing of her plantar foot ulcer secondary to rocker-bottom Charcot foot deformity, recurrent ulcers and infections. She was previously admitted to the hospital for a left foot infection and underwent incision and drainage with debridement. She is been treated with antibiotics under the management of infectious disease and is currently treated with a wound VAC. She completed left lower extremity vascular surgery intervention procedure and had this successfully completed at [facility] with Dr. Pang. She denies redness, and reports decreased left foot pain. She denies fever, chill, nausea, vomiting. He has not odor or increased moisture around the back today and upon removal there is no distinct infection. Progress of Wound: Improving left Objective Data Objective Data Vital Signs: Vital Signs Temp Pulse Resp BP 97.7 F L 70 18 136/54 H 11/16/20 10:59 11/16/20 10:59 11/16/20 10:59 11/16/20 10:59 Oxygen Delivery Method Room Air Body Mass Index (BMI) 29.6 Physical Exam Const alert and oriented x3 General Appearance: cooperative HEENT normocephalic Extremity Extremity Narrative: No calf tenderness Diminished pulses Muscle wasting noted Right transmetatarsal amputation Left Charcot rocker-bottom foot nonacute General Extremity: edema and no tenderness to palpation of joints or extremities; Negative for cyanosis Skin Skin Narrative: No purulence, now erythema, no streaking, no infection. Deeper left foot ulcer with reduced depth and no tendon, bone, joint exposure. Right heel ulcer is healed with full epithelialization. Skin is atrophic and hairless bilateral. Peripheral maceration noted and mild odor General Skin Exam: Negative for erythema Neuro Neuro Narrative: lack of normal epicritic sensation via light touch is consistent with neuropathy status Psych cooperative and affect normal Debridement Note Debridement Note Post-Debridement Measurements and Additional Note: Post-Debridement Measurements/Treatment WC - Nurse 1 - General Ulcer Assessment Start: 10/26/20 10:48 Freq: Status: Active Protocol: EUGENE Activity Type Activity Date Activity User E-Sign Co-Sign Detail Recorded Client Recorded Date Recorded By Document 10/26/20 10:48 BMF Desktop 10/26/20 10:58 BMF Document 11/02/20 11:03 DL [id number] 11/02/20 11:11 DL Document 11/09/20 11:09 RB Desktop 11/09/20 11:19 RB Document 11/16/20 10:59 RB [id number] 11/16/20 11:01 RB 10/26/20 11/02/20 11/09/20 10:48 11:03 11:09 WC - Today's Visit Information Type of service Follow-up Visit Follow-up Visit Follow-up Visit (Physician/M[employer]DLE [employer]CHO[employer] HISTORY TEACHER (Physician/MIDDLE SCHOOL HISTORY TEACHER (Physician/MIDDLE SCHOOL HISTORY TEACHER ) ) ) Arrival Mode Wheelchair Stretcher Ambulatory Transfer Assistance None Manual None Transfer Assist (Other) STAND BY x1 Patient Identification Verified (Name & Yes Yes ) Patient Requires Transmission-Based No No No Precautions Finger Stick Blood Sugar(mg/dl) (if 134 indicated): Blood Sugar Stated by Patient Height and Weight Body Mass Index (BMI) 29.6 29.6 29.6 BMI Classification Overweight Overweight Overweight Vital Signs Temperature (97.8 F-99.1 F) 97.7 F L 97.5 F L 96 F L Temperature Source Temporal Temporal Oral Pulse Rate (60-100) 66 74 67 Pulse Location Monitor Monitor Monitor Respiratory Rate (12-18) 16 18 18 Respiratory rate source Observation Observation Observation Oxygen Delivery Method Room Air Blood Pressure (90/60-120/80) 130/45 H 141/61 H 158/43 H Blood Pressure Mean (mm Hg) 73 87 81 Source Monitor Monitor Monitor Position Sitting Semi-Fowlers Blood Pressure Location Left Arm Left Arm History Since Last Visit- (Skip if this is Patient's initial visit) Have you changed medications since your Yes No No last visit? Any new allergies or adverse reactions No No No Had a fall/change in ADL's that may No No No increase risk of falls Signs or symptoms of abuse and/or No No No neglect since last visit Have you been in the hospital since your No No No last visit? Has dressing in place as prescribed Yes Yes Yes Has compression in place as prescribed N/A Yes No Has offloadiing in place as prescribed Yes Yes No Experienced any changes in pain level or No No No management Left Footwear No Footwear Regular Shoe Right Footwear Slipper Regular Shoe Pain Scale: 0-10 Numeric Is Patient Pain Free? Yes Yes Yes 11/16/20 10:59 WC - Today's Visit Information Type of service Follow-up Visit (Physician/MIDDLE [employer] HISTORY TEACHER ) Arrival Mode Wheelchair Transfer Assistance None Transfer Assist (Other) Patient Identification Verified (Name & Yes ) Patient Requires Transmission-Based No Precautions Finger Stick Blood Sugar(mg/dl) (if indicated): Blood Sugar Height and Weight Body Mass Index (BMI) 29.6 BMI Classification Overweight Vital Signs Temperature (97.8 F-99.1 F) 97.7 F L Temperature Source Temporal Pulse Rate (60-100) 70 Pulse Location Monitor Respiratory Rate (12-18) 18 Respiratory rate source Observation Oxygen Delivery Method Blood Pressure (90/60-120/80) 136/54 H Blood Pressure Mean (mm Hg) 81 Source Monitor Position Semi-Fowlers Blood Pressure Location Left Arm History Since Last Visit- (Skip if this is Patient's initial visit) Have you changed medications since your No last visit? Any new allergies or adverse reactions No Had a fall/change in ADL's that may No increase risk of falls Signs or symptoms of abuse and/or No neglect since last visit Have you been in the hospital since your last visit? Has dressing in place as prescribed Yes Has compression in place as prescribed No Has offloadiing in place as prescribed No Experienced any changes in pain level or No management Left Footwear Right Footwear Pain Scale: 0-10 Numeric Is Patient Pain Free? Yes - Nurse 1 - General Ulcer Measurement Start: 10/26/20 10:48 Freq: Status: Active Protocol: Activity Type Activity Date Activity User E-Sign Co-Sign Detail Recorded Client Recorded Date Recorded By Document 10/26/20 10:48 [facility] Desktop 10/26/20 10:58 BMF Document 11/02/20 11:03 DL [id number] 11/02/20 11:11 DL Document 11/09/20 11:09 RB Desktop 11/09/20 11:19 RB Document 11/16/20 10:59 RB [id number] 11/16/20 11:01 RB 10/26/20 11/02/20 11/09/20 10:48 11:03 11:09 Wound Center Nurse 1 9-right posterior heel -Combined with other wound No No -Current Size (cm) - Length 0.1 0.1 0.1 -Current Size (cm) - Width 0.1 0.1 0.1 -Current Size (cm) - Depth 0.1 0.1 0.1 -Total Square Cm 0.01 0.01 0.01 -Photo Taken No -Epithelialization Large 67-100% -Tunneling No -Undermining/Tunneling No -Circular Undermining No -Exudate Amt None Present None Present -Wound Margin Thickened Flat & Intact -Granulation Amt Small (1-33%) Medium (34-66%) -Granulation Quality Pale [place] -Slough/Fibrin Yes -Necrosis Amt Medium (34-66%) -Necrotic Tissue Type Adherent Slough Adherent Slough -Structure Exposed N/A N/A -Texture (Shannon-wound Skin Appearance) Assessed,Callus Callus,Scarring Assessed,Callus -Moisture (Shannon-wound Skin Appearance) Assessed,Dry/ Dry/Scaly Assessed Scaly -Color (Shannon-wound Skin Appearance) Assessed Assessed Assessed -Temperature (Shannon-wound Skin No Abnormality No Abnormality No Abnormality Appearance) (Pt Warm) (Pt Warm) (Pt Warm) -Tenderness on Palpation (Shannon-wound No No No Skin Appearance) -Ulcer Cleansing Rinsed/ Wound Cleanser Wound Cleanser Irrigated with Saline -Foul Odor after Cleansing No No No -Anesthetic Used 5% Lidocaine 5% Lidocaine 4% Lidocaine Gel Gel Solution 8. L foot plantar post op -Combined with other wound No No -Current Size (cm) - Length 2.3 1.9 1.7 -Current Size (cm) - Width 3.8 3.2 2.5 -Current Size (cm) - Depth 1.4 1.6 1.1 -Total Square Cm 8.74 6.08 4.25 -Photo Taken No No -Epithelialization Small 1-33% -Tunneling No No -Undermining/Tunneling No No -Circular Undermining No No -Exudate Amt Medium Medium Medium -Exudate Type Serosanguineous Serosanguineous Serosanguineous -Wound Margin Thickened Thickened & Rolled Under -Granulation Amt Large (67-100%) Large (67-100%) Medium (34-66%) -Granulation Quality Red Red [place] -Slough/Fibrin Yes Yes -Necrosis Amt Small (1-33%) Small (1-33%) Medium (34-66%) -Necrotic Tissue Type Adherent Slough Adherent Slough Adherent Slough -Structure Exposed Bone N/A N/A -Texture (Shannon-wound Skin Appearance) Assessed, Scarring Scarring Scarring -Moisture (Shannon-wound Skin Appearance) Assessed, Maceration Assessed Maceration -Color (Shannon-wound Skin Appearance) Palor No Abnormality Assessed -Temperature (Shannon-wound Skin No Abnormality No Abnormality No Abnormality Appearance) (Pt Warm) (Pt Warm) (Pt Warm) -Tenderness on Palpation (Shannon-wound Yes No No Skin Appearance) -Ulcer Cleansing SOAPY WATER Wound Cleanser Wound Cleanser -Foul Odor after Cleansing No No No -Anesthetic Used 4% Lidocaine 4% Lidocaine 4% Lidocaine Solution Solution Solution 11/16/20 10:59 Wound Center Nurse 1 9-right posterior heel -Combined with other wound -Current Size (cm) - Length -Current Size (cm) - Width -Current Size (cm) - Depth -Total Square Cm -Photo Taken -Epithelialization -Tunneling -Undermining/Tunneling -Circular Undermining -Exudate Amt -Wound Margin -Granulation Amt -Granulation Quality -Slough/Fibrin -Necrosis Amt -Necrotic Tissue Type -Structure Exposed -Texture (Shannon-wound Skin Appearance) -Moisture (Shannon-wound Skin Appearance) -Color (Shannon-wound Skin Appearance) -Temperature (Shannon-wound Skin Appearance) -Tenderness on Palpation (Shannon-wound Skin Appearance) -Ulcer Cleansing -Foul Odor after Cleansing -Anesthetic Used 8. L foot plantar post op -Combined with other wound No -Current Size (cm) - Length 0.1 -Current Size (cm) - Width 0.1 -Current Size (cm) - Depth 0.1 -Total Square Cm 0.01 -Photo Taken -Epithelialization -Tunneling No -Undermining/Tunneling No -Circular Undermining No -Exudate Amt Medium -Exudate Type Serosanguineous -Wound Margin Distinct, Outline Attached -Granulation Amt Large (67-100%) -Granulation Quality [place] -Slough/Fibrin Yes -Necrosis Amt Small (1-33%) -Necrotic Tissue Type -Structure Exposed N/A -Texture (Shannon-wound Skin Appearance) Assessed -Moisture (Shannon-wound Skin Appearance) Assessed -Color (Shannon-wound Skin Appearance) Assessed -Temperature (Shannon-wound Skin No Abnormality Appearance) (Pt Warm) -Tenderness on Palpation (Shannon-wound No Skin Appearance) -Ulcer Cleansing Wound Cleanser -Foul Odor after Cleansing No -Anesthetic Used WC - Nurse 2 - General Ulcer CM Notes Start: 10/26/20 10:48 Freq: Status: Active Protocol: Activity Type Activity Date Activity User E-Sign Co-Sign Detail Recorded Client Recorded Date Recorded By Document 10/26/20 11:12 JF [id number] 10/26/20 11:24 JF Document 11/02/20 11:24 JF [id number] 11/02/20 11:31 JF Document 11/09/20 12:16 PL [id number] 11/09/20 12:20 PL Document 11/16/20 11:07 JF [id number] 11/16/20 11:10 JF 10/26/20 11/02/20 11/09/20 11:12 11:24 12:16 Wound Center Nurse 2 9-right posterior heel -Time 11:21 11:25 -Correct Patient Yes Yes -Correct Side, Site, Position Yes Yes -Correct Procedure Yes Yes -Procedure Performed Yes Yes -Type of Procedure Debridement Debridement -Clinical Debridement Subcutaneous Subcutaneous -Tissue Removed Subcutaneous Subcutaneous -Post Debridement (cm) - Length 0.4 0.2 -Post Debridement (cm) - Width 0.7 0.4 -Post Debridement (cm) - Depth 0.1 0.2 -Total Square (Post) (cm) 0.28 0.08 -Area of Debridement (cm) - Length 0.4 0.2 -Area of Debridement (cm) - Width 0.7 0.4 -Total Square (Area) (cm) 0.28 0.08 -Tunneling No No -Undermining/Tunneling No No -Circular Undermining No No -Wound/Ulcer Outcome Not Healed Not Healed -Ulcer Cleansing Rinsed/ Rinsed/ Irrigated with Irrigated with Saline Saline -Foul Odor after Cleansing No No -Bioengineered Tissue No No -Bleeding Controlled with Pressure Pressure -Offloading No No -Treatment Response Procedure Procedure Tolerated Well Tolerated Well -Debridement - Subq, 1st 20sq cm Yes Yes 8. L foot plantar post op -Time 11:12 11:26 11:33 -Correct Patient Yes Yes Yes -Correct Side, Site, Position Yes Yes Yes -Correct Procedure Yes Yes Yes -Procedure Performed Yes Yes Yes -Type of Procedure Debridement Debridement Debridement -Clinical Debridement Subcutaneous Subcutaneous Subcutaneous -Tissue Removed Subcutaneous Subcutaneous Subcutaneous -Post Debridement (cm) - Length 2.4 1.9 1.7 -Post Debridement (cm) - Width 3.9 3.2 2.5 -Post Debridement (cm) - Depth 1.5 1.2 1.1 -Total Square (Post) (cm) 9.36 6.08 4.25 -Area of Debridement (cm) - Length 2.4 1.9 1.7 -Area of Debridement (cm) - Width 3.9 3.2 2.5 -Total Square (Area) (cm) 9.36 6.08 4.25 -Tunneling No No No -Undermining/Tunneling No No No -Circular Undermining No No No -Wound/Ulcer Outcome Not Healed Not Healed Not Healed -Ulcer Cleansing Rinsed/ Rinsed/ Rinsed/ Irrigated with Irrigated with Irrigated with Saline Saline Saline -Foul Odor after Cleansing No No No -Bioengineered Tissue Yes Yes Yes -Type of Bioengineered Tissue Epicord Epicord Epicord -Expiration Date 09/24/24 01/25/25 08/25/25 -Product Lot Number [id number] -Percent Used 100 100 100 -Lot number of Saline Used [id number] -Bleeding Controlled with Pressure Pressure Pressure -Offloading Yes No -Type of Offloading Surgical Shoe -Treatment Response Procedure Procedure Procedure Tolerated Well Tolerated Well Tolerated Well -Debridement - Subq, 1st 20sq cm No No No -Apply Skin Sub - 1st 25 sq cm - Feet 1 1 1 -Epicord (per sq cm) 6 6 6 Pain Scale: 0-10 Numeric Is Patient Pain Free? Yes Yes Yes 11/16/20 11:07 Wound Center Nurse 2 9-right posterior heel -Time -Correct Patient -Correct Side, Site, Position -Correct Procedure -Procedure Performed -Type of Procedure -Clinical Debridement -Tissue Removed -Post Debridement (cm) - Length -Post Debridement (cm) - Width -Post Debridement (cm) - Depth -Total Square (Post) (cm) -Area of Debridement (cm) - Length -Area of Debridement (cm) - Width -Total Square (Area) (cm) -Tunneling -Undermining/Tunneling -Circular Undermining -Wound/Ulcer Outcome -Ulcer Cleansing -Foul Odor after Cleansing -Bioengineered Tissue -Bleeding Controlled with -Offloading -Treatment Response -Debridement - Subq, 1st 20sq cm 8. L foot plantar post op -Time 11:07 -Correct Patient Yes -Correct Side, Site, Position Yes -Correct Procedure Yes -Procedure Performed Yes -Type of Procedure Debridement -Clinical Debridement Subcutaneous -Tissue Removed Subcutaneous -Post Debridement (cm) - Length 1.4 -Post Debridement (cm) - Width 3 -Post Debridement (cm) - Depth 0.8 -Total Square (Post) (cm) 4.2 -Area of Debridement (cm) - Length 1.4 -Area of Debridement (cm) - Width 3 -Total Square (Area) (cm) 4.2 -Tunneling No -Undermining/Tunneling No -Circular Undermining No -Wound/Ulcer Outcome Not Healed -Ulcer Cleansing Rinsed/ Irrigated with Saline -Foul Odor after Cleansing No -Bioengineered Tissue No -Type of Bioengineered Tissue -Expiration Date -Product Lot Number -Percent Used -Lot number of Saline Used -Bleeding Controlled with Pressure -Offloading Yes -Type of Offloading Surgical Shoe -Treatment Response -Debridement - Subq, 1st 20sq cm Yes -Apply Skin Sub - 1st 25 sq cm - Feet -Epicord (per sq cm) Pain Scale: 0-10 Numeric Is Patient Pain Free? Yes WC - Nurse 3 - General Ulcer D/C NN Start: 10/26/20 10:48 Freq: Status: Active Protocol: Activity Type Activity Date Activity User E-Sign Co-Sign Detail Recorded Client Recorded Date Recorded By Document 10/26/20 11:25 RB Desktop 10/26/20 11:28 RB Edit Result 10/26/20 11:25 RB (1) Desktop 10/26/20 11:29 RB Document 11/02/20 11:37 RB [id number] 11/02/20 11:39 RB Document 11/09/20 11:52 RB [id number] 11/09/20 11:52 RB Document 11/16/20 11:23 DL Desktop 11/16/20 11:24 DL (1) Left - Other => DALIA 10/26/20 11/02/20 11/09/20 11:25 11:37 11:52 Wound Care Nurse 3 9-right posterior heel -Other Dressing HYDROGEL -Primary Dressing Covered/Secured with Dry Gauze,Dry Dry Gauze,Dry Gauze & Roll Gauze & Roll Gauze,Secured Gauze,Secured with Tape with Tape 8. L foot plantar post op -Ulcer Cleansing Wound Cleanser -Foul Odor after Cleansing -Negative Pressure Wound Therapy Continue Continue Continue -Setting (mmHg) 125 125 125 -Negative Pressure is Continuous Continuous Continuous -Primary Dressing Applied -Other Dressing epicord, veil and steristrips -Primary Dressing Covered/Secured with -NPWT Application Charge ($) NPWT </= 50 sq NPWT </= 50 sq NPWT </= 50 sq cm cm cm -Aquacel AG 4x4 Left -Other DALIA abd under vac tubing and dalia wrap Treatment Response Procedure Procedure Tolerated Well Tolerated Well Pain Scale: 0-10 Numeric Is Patient Pain Free? Yes WC - Visit Discharge Discharge Condition Stable Stable Stable Ambulatory Status Ambulatory, Wheelchair Wheelchair Wheelchair Transportation Private Auto Private Auto Private Auto Accompanied by Medication Reconcilliation completed & No No No provided to patient/care provider Clinical Summary of Care Provided Yes Yes Yes Facility Type Orders Sent 11/16/20 11:23 Wound Care Nurse 3 9-right posterior heel -Other Dressing -Primary Dressing Covered/Secured with 8. L foot plantar post op -Ulcer Cleansing Rinsed/ Irrigated with Saline -Foul Odor after Cleansing No -Negative Pressure Wound Therapy -Setting (mmHg) -Negative Pressure is -Primary Dressing Applied Aquacel AG 4x4 -Other Dressing -Primary Dressing Covered/Secured with Dry Gauze & Roll Gauze, Secured with Tape -NPWT Application Charge ($) -Aquacel AG 4x4 1 Left -Other Treatment Response Procedure Tolerated Well Pain Scale: 0-10 Numeric Is Patient Pain Free? Yes WC - Visit Discharge Discharge Condition Stable Ambulatory Status Wheelchair Transportation Private Auto Accompanied by Medication Reconcilliation completed & provided to patient/care provider Clinical Summary of Care Provided Facility Type Home Health Orders Sent Yes Wound debrided: plantar left foot Wound Grade/Stage: 3 Type of Debridement: Excisional debridement Anesthesia Used: 4% Lidocaine Solution Depth: in the subcutaneous layer Percentage of wound debrided: 100 Instrument Used: #15 blade Tissue Removed: fibrous, devitalized subcutaneous, biofilm, slough Severity: Fat Layer Exposed Amount of bleeding with debridement: Mild Bleeding Controlled with: Pressure Patient tolerated procedure: Patient tolerated procedure well Assessment/Plan Assessment/Plan (1) Chronic diabetic ulcer of left foot determined by examination: CODE(S): E11.621 - Type 2 diabetes mellitus with foot ulcer; L97.529 - Non-pressure chronic ulcer of other part of left foot with unspecified severity (2) Ulcer of right foot with fat layer exposed: CODE(S): L97.512 - Non-pressure chronic ulcer of other part of right foot with fat layer exposed (3) 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: CODE(S): L97.523 - Non-pressure chronic ulcer of other part of left foot with necrosis of muscle (4) Delayed wound healing: CODE(S): T14.8XXD - Other injury of unspecified body region, subsequent encounter (5) Type 2 diabetes mellitus with diabetic polyneuropathy: CODE(S): E11.42 - Type 2 diabetes mellitus with diabetic polyneuropathy QUALIFIERS: Diabetes mellitus penitentiary insulin use: with penitentiary use Qualified Code(s): E11.42 - Type 2 diabetes mellitus with diabetic polyneuropathy; Z79.4 - watermelon inspector (current) use of insulin (6) Peripheral arterial occlusive disease: CODE(S): I77.9 - Disorder of arteries and arterioles, unspecified PLAN: The patient tolerated the procedure well. I reviewed and discussed her case. Debridement was performed excisional subcutaneous manner to the left foot. She will take a break from the wound VAC and advance weekly product this week to allow soap and water daily wash. To use Dial soap. Reapplication will be considered next week. She is reassured no local or systemic signs of illness are seen. Cultures from surgery (09/20) with coag neg staph, strep, enterococcus. ID on consult. Complete cephalexin 500 mg q 8 hrs for 4 weeks at time of discharge. MRI w/out osteo from recent hospital admission. To follow up as advised with Dr. Webb. She does not have local signs of cellulitis today and this is significantly improved. Labs: 09-19-20 with ESR 44. 4-- with A1c of 7.1%.?30?21 white blood cell count 6.8. Vascular surgery intervention was performed successfully at [facility] this past week with Dr. Pang w/ antioplasty at femoral through adductor into popliteal (balloon). To maintain non weightbearing status with the use of assistive devices (knee roller/walker) left lower extremity. I recommend she hangs her right heel over stacked pillows or blankets while seated or laying down. Pain controlled with home pain medication regimen per PCP. Imaging: Weightbearing left ankle and foot x-rays were reviewed from - without acute Charcot or osseous destruction at the ankle or hindfoot where her recent subjective pain is located. There is also no soft tissue emphysema or foreign body noted to the foot adjacent to the ulcer site. Prior rocker-bottom Charcot midfoot is noted with fragmentation and consolidation is consistent with prior x-rays. To continue nutritional supplementation to optimize healing. She is taking Blue and has also been trying to eat more fresh foods. She is working on more detailed diet planning with her primary care physician. F/u wound care center 1 week. I answered all of her questions. Note: [employer] speech recognition bone grinder software was used to create portions of this document. Sound-alike and misspelled words, as well as other bone grinder errors may be contained in the documentation.
[2020-11-23 10:47] VITALS: BP 150/66; PULSE 95; RESP 18; TEMP 36.9; BMI 29.6
--- NOTE | 2020-11-23 11:43 | PCM.WC.PN ---
History of Present Illness Date of Service: 11/23/20 Chief Complaint: Left foot History of Wound: This is 75-year-old female with diabetic neuropathy history of Charcot left foot with rocker-bottom deformity, coronary artery disease and other comorbidities has a recurrent ulcer. She has had delayed healing of her plantar foot ulcer secondary to rocker-bottom Charcot foot deformity, recurrent ulcers and infections. She was previously admitted to the hospital for a left foot infection and underwent incision and drainage with debridement. She is been treated with antibiotics under the management of infectious disease and is currently treated with a wound VAC which has been placed on hold. She completed left lower extremity vascular surgery intervention procedure and had this successfully completed at [facility] with Dr. Pang. She denies redness, and reports decreased left foot pain. She denies fever, chill, nausea, vomiting. She kept her dressing clean, dry and intact. [place] be traveling out [place] and will return to town in 2 weeks. Progress of Wound: Improving left Objective Data Objective Data Vital Signs: Vital Signs Temp Pulse Resp BP 98.5 F 95 18 150/66 H 11/23/20 10:47 11/23/20 10:47 11/23/20 10:47 11/23/20 10:47 Oxygen Delivery Method Room Air Body Mass Index (BMI) 29.6 Physical Exam Const alert and oriented x3 General Appearance: cooperative HEENT normocephalic Extremity Extremity Narrative: No calf tenderness Diminished pulses Muscle wasting noted Right transmetatarsal amputation Left Charcot rocker-bottom foot nonacute General Extremity: edema and no tenderness to palpation of joints or extremities; Negative for cyanosis Skin Skin Narrative: No purulence, now erythema, no streaking, no infection. Deeper left foot ulcer with reduced depth and no tendon, bone, joint exposure. Skin is atrophic and hairless bilateral. Peripheral maceration noted and mild odor General Skin Exam: Negative for erythema Neuro Neuro Narrative: lack of normal epicritic sensation via light touch is consistent with neuropathy status Psych cooperative and affect normal Debridement Note Debridement Note Post-Debridement Measurements and Additional Note: Post-Debridement Measurements/Treatment WC - Nurse 1 - General Ulcer Assessment Start: 10/26/20 10:48 Freq: Status: Active Protocol: EUGENE Activity Type Activity Date Activity User E-Sign Co-Sign Detail Recorded Client Recorded Date Recorded By Document 10/26/20 10:48 BMF Desktop 10/26/20 10:58 BMF Document 11/02/20 11:03 DL [id number] 11/02/20 11:11 DL Document 11/09/20 11:09 RB Desktop 11/09/20 11:19 RB Document 11/16/20 10:59 RB [id number] 11/16/20 11:01 RB Document 11/23/20 10:47 RB [id number] 11/23/20 10:48 RB 10/26/20 11/02/20 11/09/20 10:48 11:03 11:09 WC - Today's Visit Information Type of service Follow-up Visit Follow-up Visit Follow-up Visit (Physician/SODA COLUMN OPERATOR (Physician/SODA COLUMN OPERATOR (Physician/SODA COLUMN OPERATOR ) ) ) Arrival Mode Wheelchair Stretcher Ambulatory Transfer Assistance None Manual None Transfer Assist (Other) STAND BY x1 Patient Identification Verified (Name & Yes Yes ) Patient Requires Transmission-Based No No No Precautions Finger Stick Blood Sugar(mg/dl) (if 134 indicated): Blood Sugar Stated by Patient Height and Weight Body Mass Index (BMI) 29.6 29.6 29.6 BMI Classification Overweight Overweight Overweight Vital Signs Temperature (97.8 F-99.1 F) 97.7 F L 97.5 F L 96 F L Temperature Source Temporal Temporal Oral Pulse Rate (60-100) 66 74 67 Pulse Location Monitor Monitor Monitor Respiratory Rate (12-18) 16 18 18 Respiratory rate source Observation Observation Observation Oxygen Delivery Method Room Air Blood Pressure (90/60-120/80) 130/45 H 141/61 H 158/43 H Blood Pressure Mean (mm Hg) 73 87 81 Source Monitor Monitor Monitor Position Sitting Semi-Fowlers Blood Pressure Location Left Arm Left Arm History Since Last Visit- (Skip if this is Patient's initial visit) Have you changed medications since your Yes No No last visit? Any new allergies or adverse reactions No No No Had a fall/change in ADL's that may No No No increase risk of falls Signs or symptoms of abuse and/or No No No neglect since last visit Have you been in the hospital since your No No No last visit? Has dressing in place as prescribed Yes Yes Yes Has compression in place as prescribed N/A Yes No Has offloadiing in place as prescribed Yes Yes No Experienced any changes in pain level or No No No management Left Footwear No Footwear Regular Shoe Right Footwear Slipper Regular Shoe Pain Scale: 0-10 Numeric Is Patient Pain Free? Yes Yes Yes 11/16/20 11/23/20 10:59 10:47 - Today's Visit Information Type of service Follow-up Visit Follow-up Visit (Physician/SODA COLUMN OPERATOR (Physician/SODA COLUMN OPERATOR ) ) Arrival Mode Wheelchair Wheelchair Transfer Assistance None Manual Transfer Assist (Other) Patient Identification Verified (Name & Yes No ) Patient Requires Transmission-Based No No Precautions Finger Stick Blood Sugar(mg/dl) (if indicated): Blood Sugar Height and Weight Body Mass Index (BMI) 29.6 29.6 BMI Classification Overweight Overweight Vital Signs Temperature (97.8 F-99.1 F) 97.7 F L 98.5 F Temperature Source Temporal Temporal Pulse Rate (60-100) 70 95 Pulse Location Monitor Monitor Respiratory Rate (12-18) 18 18 Respiratory rate source Observation Observation Oxygen Delivery Method Blood Pressure (90/60-120/80) 136/54 H 150/66 H Blood Pressure Mean (mm Hg) 81 94 Source Monitor Monitor Position Semi-Fowlers Semi-Fowlers Blood Pressure Location Left Arm Left Arm History Since Last Visit- (Skip if this is Patient's initial visit) Have you changed medications since your No No last visit? Any new allergies or adverse reactions No No Had a fall/change in ADL's that may No No increase risk of falls Signs or symptoms of abuse and/or No No neglect since last visit Have you been in the hospital since your No last visit? Has dressing in place as prescribed Yes Yes Has compression in place as prescribed No No Has offloadiing in place as prescribed No No Experienced any changes in pain level or No No management Left Footwear Right Footwear Pain Scale: 0-10 Numeric Is Patient Pain Free? Yes Yes - Nurse 1 - General Ulcer Measurement Start: 10/26/20 10:48 Freq: Status: Active Protocol: Activity Type Activity Date Activity User E-Sign Co-Sign Detail Recorded Client Recorded Date Recorded By Document 10/26/20 10:48 F Desktop 10/26/20 10:58 BM Document 11/02/20 11:03 DL [id number] 11/02/20 11:11 DL Document 11/09/20 11:09 RB Desktop 06/16/21 11:19 RB Document 11/16/20 10:59 RB [id number] 11/16/20 11:01 RB Document 11/23/20 10:46 RB [id number] 11/23/20 10:47 RB 10/26/20 11/02/20 11/09/20 10:48 11:03 11:09 Wound Center Nurse 1 9-right posterior heel -Combined with other wound No No -Current Size (cm) - Length 0.1 0.1 0.1 -Current Size (cm) - Width 0.1 0.1 0.1 -Current Size (cm) - Depth 0.1 0.1 0.1 -Total Square Cm 0.01 0.01 0.01 -Photo Taken No -Epithelialization Large 67-100% -Tunneling No -Undermining/Tunneling No -Circular Undermining No -Exudate Amt None Present None Present -Wound Margin Thickened Flat & Intact -Granulation Amt Small (1-33%) Medium (34-66%) -Granulation Quality Pale Kinde -Slough/Fibrin Yes -Necrosis Amt Medium (34-66%) -Necrotic Tissue Type Adherent Slough Adherent Slough -Structure Exposed N/A N/A -Texture (Shannon-wound Skin Appearance) Assessed,Callus Callus,Scarring Assessed,Callus -Moisture (Shannon-wound Skin Appearance) Assessed,Dry/ Dry/Scaly Assessed Scaly -Color (Shannon-wound Skin Appearance) Assessed Assessed Assessed -Temperature (Shannon-wound Skin No Abnormality No Abnormality No Abnormality Appearance) (Pt Warm) (Pt Warm) (Pt Warm) -Tenderness on Palpation (Shannon-wound No No No Skin Appearance) -Ulcer Cleansing Rinsed/ Wound Cleanser Wound Cleanser Irrigated with Saline -Foul Odor after Cleansing No No No -Anesthetic Used 5% Lidocaine 5% Lidocaine 4% Lidocaine Gel Gel Solution 8. L foot plantar post op -Combined with other wound No No -Current Size (cm) - Length 2.3 1.9 1.7 -Current Size (cm) - Width 3.8 3.2 2.5 -Current Size (cm) - Depth 1.4 1.6 1.1 -Total Square Cm 8.74 6.08 4.25 -Photo Taken No No -Epithelialization Small 1-33% -Tunneling No No -Undermining/Tunneling No No -Undermining/Tunneling Starts (O'clock ) -Undermining/Tunneling Ends (O'clock) -Maximum Distance (cm) -Circular Undermining No No -Exudate Amt Medium Medium Medium -Exudate Type Serosanguineous Serosanguineous Serosanguineous -Wound Margin Thickened Thickened & Rolled Under -Granulation Amt Large (67-100%) Large (67-100%) Medium (34-66%) -Granulation Quality Red Red Kinde -Slough/Fibrin Yes Yes -Necrosis Amt Small (1-33%) Small (1-33%) Medium (34-66%) -Necrotic Tissue Type Adherent Slough Adherent Slough Adherent Slough -Structure Exposed Bone N/A N/A -Texture (Shannon-wound Skin Appearance) Assessed, Scarring Scarring Scarring -Moisture (Shannon-wound Skin Appearance) Assessed, Maceration Assessed Maceration -Color (Shannon-wound Skin Appearance) Palor No Abnormality Assessed -Temperature (Shannon-wound Skin No Abnormality No Abnormality No Abnormality Appearance) (Pt Warm) (Pt Warm) (Pt Warm) -Tenderness on Palpation (Shannon-wound Yes No No Skin Appearance) -Ulcer Cleansing SOAPY WATER Wound Cleanser Wound Cleanser -Foul Odor after Cleansing No No No -Anesthetic Used 4% Lidocaine 4% Lidocaine 4% Lidocaine Solution Solution Solution 11/16/20 11/23/20 10:59 10:46 Wound Center Nurse 1 9-right posterior heel -Combined with other wound -Current Size (cm) - Length -Current Size (cm) - Width -Current Size (cm) - Depth -Total Square Cm -Photo Taken -Epithelialization -Tunneling -Undermining/Tunneling -Circular Undermining -Exudate Amt -Wound Margin -Granulation Amt -Granulation Quality -Slough/Fibrin -Necrosis Amt -Necrotic Tissue Type -Structure Exposed -Texture (Shannon-wound Skin Appearance) -Moisture (Shannon-wound Skin Appearance) -Color (Shannon-wound Skin Appearance) -Temperature (Shannon-wound Skin Appearance) -Tenderness on Palpation (Shannon-wound Skin Appearance) -Ulcer Cleansing -Foul Odor after Cleansing -Anesthetic Used 8. L foot plantar post op -Combined with other wound No No -Current Size (cm) - Length 0.1 1 -Current Size (cm) - Width 0.1 2 -Current Size (cm) - Depth 0.1 0.5 -Total Square Cm 0.01 2 -Photo Taken No -Epithelialization -Tunneling No No -Undermining/Tunneling No Yes -Undermining/Tunneling Starts (O'clock 1 ) -Undermining/Tunneling Ends (O'clock) 3 -Maximum Distance (cm) 1.5 -Circular Undermining No No -Exudate Amt Medium Medium -Exudate Type Serosanguineous Serosanguineous -Wound Margin Distinct, Thickened & Outline Rolled Under Attached -Granulation Amt Large (67-100%) Medium (34-66%) -Granulation Quality Kinde Kinde -Slough/Fibrin Yes Yes -Necrosis Amt Small (1-33%) Small (1-33%) -Necrotic Tissue Type Adherent Slough -Structure Exposed N/A N/A -Texture (Shannon-wound Skin Appearance) Assessed Assessed,Callus -Moisture (Shannon-wound Skin Appearance) Assessed Assessed -Color (Shannon-wound Skin Appearance) Assessed Assessed -Temperature (Shannon-wound Skin No Abnormality No Abnormality Appearance) (Pt Warm) (Pt Warm) -Tenderness on Palpation (Shannon-wound No No Skin Appearance) -Ulcer Cleansing Wound Cleanser Wound Cleanser -Foul Odor after Cleansing No No -Anesthetic Used 4% Lidocaine Solution WC - Nurse 2 - General Ulcer CM Notes Start: 10/26/20 10:48 Freq: Status: Active Protocol: Activity Type Activity Date Activity User E-Sign Co-Sign Detail Recorded Client Recorded Date Recorded By Document 10/26/20 11:12 [id number] 10/26/20 11:24 Document 11/02/20 11:24 [id number] 11/02/20 11:31 Document 11/09/20 12:16 PL [id number] 11/09/20 12:20 PL Document 11/16/20 11:07 [id number] 11/16/20 11:10 Document 11/23/20 11:03 [id number] 11/23/20 11:11 10/26/20 11/02/20 11/09/20 11:12 11:24 12:16 Wound Center Nurse 2 9-right posterior heel -Time 11:21 11:25 -Correct Patient Yes Yes -Correct Side, Site, Position Yes Yes -Correct Procedure Yes Yes -Procedure Performed Yes Yes -Type of Procedure Debridement Debridement -Clinical Debridement Subcutaneous Subcutaneous -Tissue Removed Subcutaneous Subcutaneous -Post Debridement (cm) - Length 0.4 0.2 -Post Debridement (cm) - Width 0.7 0.4 -Post Debridement (cm) - Depth 0.1 0.2 -Total Square (Post) (cm) 0.28 0.08 -Area of Debridement (cm) - Length 0.4 0.2 -Area of Debridement (cm) - Width 0.7 0.4 -Total Square (Area) (cm) 0.28 0.08 -Tunneling No No -Undermining/Tunneling No No -Circular Undermining No No -Wound/Ulcer Outcome Not Healed Not Healed -Ulcer Cleansing Rinsed/ Rinsed/ Irrigated with Irrigated with Saline Saline -Foul Odor after Cleansing No No -Bioengineered Tissue No No -Bleeding Controlled with Pressure Pressure -Offloading No No -Treatment Response Procedure Procedure Tolerated Well Tolerated Well -Debridement - Subq, 1st 20sq cm Yes Yes 8. L foot plantar post op -Time 11:12 11:26 11:33 -Correct Patient Yes Yes Yes -Correct Side, Site, Position Yes Yes Yes -Correct Procedure Yes Yes Yes -Procedure Performed Yes Yes Yes -Type of Procedure Debridement Debridement Debridement -Clinical Debridement Subcutaneous Subcutaneous Subcutaneous -Tissue Removed Subcutaneous Subcutaneous Subcutaneous -Post Debridement (cm) - Length 2.4 1.9 1.7 -Post Debridement (cm) - Width 3.9 3.2 2.5 -Post Debridement (cm) - Depth 1.5 1.2 1.1 -Total Square (Post) (cm) 9.36 6.08 4.25 -Area of Debridement (cm) - Length 2.4 1.9 1.7 -Area of Debridement (cm) - Width 3.9 3.2 2.5 -Total Square (Area) (cm) 9.36 6.08 4.25 -Tunneling No No No -Undermining/Tunneling No No No -Circular Undermining No No No -Wound/Ulcer Outcome Not Healed Not Healed Not Healed -Ulcer Cleansing Rinsed/ Rinsed/ Rinsed/ Irrigated with Irrigated with Irrigated with Saline Saline Saline -Foul Odor after Cleansing No No No -Bioengineered Tissue Yes Yes Yes -Type of Bioengineered Tissue Epicord Epicord Epicord -Expiration Date 09/24/24 01/25/25 08/25/25 -Product Lot Number [id number] -Percent Used 100 100 100 -Lot number of Saline Used [id number] -Bleeding Controlled with Pressure Pressure Pressure -Offloading Yes No -Type of Offloading Surgical Shoe -Treatment Response Procedure Procedure Procedure Tolerated Well Tolerated Well Tolerated Well -Debridement - Subq, 1st 20sq cm No No No -Apply Skin Sub - 1st 25 sq cm - Feet 1 1 1 -Epicord (per sq cm) 6 6 6 Pain Scale: 0-10 Numeric Is Patient Pain Free? Yes Yes Yes 11/16/20 11/23/20 11:07 11:03 Wound Center Nurse 2 9-right posterior heel -Time -Correct Patient -Correct Side, Site, Position -Correct Procedure -Procedure Performed -Type of Procedure -Clinical Debridement -Tissue Removed -Post Debridement (cm) - Length -Post Debridement (cm) - Width -Post Debridement (cm) - Depth -Total Square (Post) (cm) -Area of Debridement (cm) - Length -Area of Debridement (cm) - Width -Total Square (Area) (cm) -Tunneling -Undermining/Tunneling -Circular Undermining -Wound/Ulcer Outcome -Ulcer Cleansing -Foul Odor after Cleansing -Bioengineered Tissue -Bleeding Controlled with -Offloading -Treatment Response -Debridement - Subq, 1st 20sq cm 8. L foot plantar post op -Time 11:07 11:04 -Correct Patient Yes Yes -Correct Side, Site, Position Yes Yes -Correct Procedure Yes Yes -Procedure Performed Yes Yes -Type of Procedure Debridement Debridement -Clinical Debridement Subcutaneous Subcutaneous -Tissue Removed Subcutaneous Subcutaneous -Post Debridement (cm) - Length 1.4 1.1 -Post Debridement (cm) - Width 3 2.1 -Post Debridement (cm) - Depth 0.8 1 -Total Square (Post) (cm) 4.2 2.31 -Area of Debridement (cm) - Length 1.4 1.1 -Area of Debridement (cm) - Width 3 2.1 -Total Square (Area) (cm) 4.2 2.31 -Tunneling No No -Undermining/Tunneling No No -Circular Undermining No No -Wound/Ulcer Outcome Not Healed Not Healed -Ulcer Cleansing Rinsed/ Rinsed/ Irrigated with Irrigated with Saline Saline -Foul Odor after Cleansing No No -Bioengineered Tissue No Yes -Type of Bioengineered Tissue Epicord -Expiration Date 08/25/25 -Product Lot Number [id number] -Percent Used 100 -Lot number of Saline Used [id number] -Bleeding Controlled with Pressure Pressure -Offloading Yes Yes -Type of Offloading Surgical Shoe Surgical Shoe -Treatment Response Procedure Tolerated Well -Debridement - Subq, 1st 20sq cm Yes No -Apply Skin Sub - 1st 25 sq cm - Feet 1 -Epicord (per sq cm) 6 Pain Scale: 0-10 Numeric Is Patient Pain Free? Yes Yes WC - Nurse 3 - General Ulcer D/C NN Start: 10/26/20 10:48 Freq: Status: Active Protocol: Activity Type Activity Date Activity User E-Sign Co-Sign Detail Recorded Client Recorded Date Recorded By Document 10/26/20 11:25 RB Desktop 10/26/20 11:28 RB Edit Result 10/26/20 11:25 RB (1) Desktop 10/26/20 11:29 RB Document 11/02/20 11:37 RB [id number] 11/02/20 11:39 RB Document 11/09/20 11:52 RB [id number] 11/09/20 11:52 RB Document 11/16/20 11:23 DL Desktop 11/16/20 11:24 DL Document 11/23/20 11:25 RB [id number] 11/23/20 11:26 RB (1) Left - Other => DALIA 10/26/20 11/02/20 11/09/20 11:25 11:37 11:52 Wound Care Nurse 3 9-right posterior heel -Other Dressing HYDROGEL -Primary Dressing Covered/Secured with Dry Gauze,Dry Dry Gauze,Dry Gauze & Roll Gauze & Roll Gauze,Secured Gauze,Secured with Tape with Tape 8. L foot plantar post op -Ulcer Cleansing Wound Cleanser -Foul Odor after Cleansing -Negative Pressure Wound Therapy Continue Continue Continue -Setting (mmHg) 125 125 125 -Negative Pressure is Continuous Continuous Continuous -Primary Dressing Applied -Other Dressing epicord, veil and steristrips -Primary Dressing Covered/Secured with -NPWT Application Charge ($) NPWT </= 50 sq NPWT </= 50 sq NPWT </= 50 sq cm cm cm -Aquacel AG 4x4 Left -Other DALIA abd under vac tubing and dalia wrap Treatment Response Procedure Procedure Tolerated Well Tolerated Well Pain Scale: 0-10 Numeric Is Patient Pain Free? Yes WC - Visit Discharge Discharge Condition Stable Stable Stable Ambulatory Status Ambulatory, Wheelchair Wheelchair Wheelchair Transportation Private Auto Private Auto Private Auto Accompanied by Medication Reconcilliation completed & No No No provided to patient/care provider Clinical Summary of Care Provided Yes Yes Yes Facility Type Orders Sent 11/16/20 11/23/20 11:23 11:25 Wound Care Nurse 3 9-right posterior heel -Other Dressing -Primary Dressing Covered/Secured with 8. L foot plantar post op -Ulcer Cleansing Rinsed/ Irrigated with Saline -Foul Odor after Cleansing No -Negative Pressure Wound Therapy -Setting (mmHg) -Negative Pressure is -Primary Dressing Applied Aquacel AG 4x4 -Other Dressing -Primary Dressing Covered/Secured with Dry Gauze & Dry Gauze,Dry Roll Gauze, Gauze & Roll Secured with Gauze,Secured Tape with Tape -NPWT Application Charge ($) -Aquacel AG 4x4 1 Left -Other DALIA Treatment Response Procedure Procedure Tolerated Well Tolerated Well Pain Scale: 0-10 Numeric Is Patient Pain Free? Yes Yes WC - Visit Discharge Discharge Condition Stable Stable Ambulatory Status Wheelchair Wheelchair Transportation Private Auto Private Auto Accompanied by Medication Reconcilliation completed & No provided to patient/care provider Clinical Summary of Care Provided Yes Facility Type Home Health Orders Sent Yes Wound debrided: plantar foot left Wound Grade/Stage: 3 Type of Debridement: Excisional debridement Anesthesia Used: 4% Lidocaine Solution Depth: in the subcutaneous layer Percentage of wound debrided: 100 Instrument Used: #15 blade Tissue Removed: fibrous, devitalized subcutaneous, biofilm, slough Severity: Fat Layer Exposed Amount of bleeding with debridement: Mild Bleeding Controlled with: Pressure Patient tolerated procedure: Patient tolerated procedure well Assessment/Plan Assessment/Plan (1) Chronic diabetic ulcer of left foot determined by examination: CODE(S): E11.621 - Type 2 diabetes mellitus with foot ulcer; L97.529 - Non-pressure chronic ulcer of other part of left foot with unspecified severity (2) 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: CODE(S): L97.523 - Non-pressure chronic ulcer of other part of left foot with necrosis of muscle (3) Delayed wound healing: CODE(S): T14.8XXD - Other injury of unspecified body region, subsequent encounter (4) Type 2 diabetes mellitus with diabetic polyneuropathy: CODE(S): E11.42 - Type 2 diabetes mellitus with diabetic polyneuropathy QUALIFIERS: Diabetes mellitus mcc insulin use: with mcc use Qualified Code(s): E11.42 - Type 2 diabetes mellitus with diabetic polyneuropathy; Z79.4 - buttermaker (current) use of insulin (5) Peripheral arterial occlusive disease: CODE(S): I77.9 - Disorder of arteries and arterioles, unspecified PLAN: The patient tolerated the procedure well. I reviewed and discussed her case. Debridement was performed excisional subcutaneous manner to the left foot. Wound vac is now discontinued. To use Dial soap. After verbal consent was obtained, epi cord was applied according to standard protocol. This was secured in place with Steri-Strips and a wound veil. She tolerated this well. She is advised to keep this in place for 1 week. It is noted she is not able to return to clinic next week because she will be out of town. She will then perform daily dressing changes with [employer] and will wash the site with Dial soap and water. She is reassured no local or systemic signs of illness are seen. Prior cultures from surgery (09/20) with coag neg staph, strep, enterococcus. ID on consult. Complete cephalexin 500 mg q 8 hrs for 4 weeks at time of discharge. MRI w/out osteo from recent hospital admission. To follow up as advised with Dr. Webb. She does not have local signs of cellulitis today and this is significantly improved. Labs: 09-19-20 with ESR 44. 4- with A1c of 7.1%.4?30?21 white blood cell count 6.8. Vascular surgery intervention was performed successfully at [facility] this past week with Dr. Pang w/ antioplasty at femoral through adductor into popliteal (balloon). To maintain non weightbearing status with the use of assistive devices (knee roller/walker) left lower extremity. I recommend she hangs her right heel over stacked pillows or blankets while seated or laying down. Pain controlled with home pain medication regimen per PCP. Imaging: Weightbearing left ankle and foot x-rays were reviewed from 5-21 without acute Charcot or osseous destruction at the ankle or hindfoot where her recent subjective pain is located. There is also no soft tissue emphysema or foreign body noted to the foot adjacent to the ulcer site. Prior rocker-bottom Charcot midfoot is noted with fragmentation and consolidation is consistent with prior x-rays. To continue nutritional supplementation to optimize healing. She is taking Blue and has also been trying to eat more fresh foods. She is working on more detailed diet planning with her primary care physician. F/u wound care center 1 week. I answered all of her questions. Note: Language Learning Class speech recognition incident response specialist software was used to create portions of this document. Sound-alike and misspelled words, as well as other incident response specialist errors may be contained in the documentation.
== END 2020-11-23 23:59 ==
LOC: WC 10:45
PROVIDERS: PCP Family Medicine; Referring Provider Podiatrist; Visit Provider Podiatrist
DX: E11.621 Type 2 diabetes mellitus with foot ulcer (principal); L97.422 Non-pressure chronic ulcer of left heel and midfoot with fat layer exposed; L97.412 Non-pressure chronic ulcer of right heel and midfoot with fat layer exposed; E11.51 Type 2 diabetes mellitus with diabetic peripheral angiopathy without gangrene; E11.42 Type 2 diabetes mellitus with diabetic polyneuropathy; I25.10 Atherosclerotic heart disease of native coronary artery without angina pectoris; Z79.4 Long term (current) use of insulin; Z79.02 Long term (current) use of antithrombotics/antiplatelets; Z79.82 Long term (current) use of aspirin; Z79.890 Hormone replacement therapy; Z79.891 Long term (current) use of opiate analgesic; Z79.899 Other long term (current) drug therapy; I25.2 Old myocardial infarction
CPT/HCPCS: 11042; 15275; 97605; Q4187

== ENCOUNTER 2020-12-07 11:00 | Outpatient (RCR) | payer MEDICARE, OTHER, SELFPAY ==
[2020-11-24 00:10] VITALS: BP 150/66; PULSE 95; RESP 18; TEMP 36.9; BMI 30.1
[2020-12-07 11:26] VITALS: BP 98/45; PULSE 75; RESP 18; TEMP 36.1; BMI 30.1
--- NOTE | 2020-12-07 11:28 | WC ---
pt states ines fell off on 12/05/2020
--- NOTE | 2020-12-07 12:12 | PCM.WC.PN ---
History of Present Illness Date of Service: 12/07/20 Chief Complaint: Left foot History of Wound: This is 75-year-old female with diabetic neuropathy history of Charcot left foot with rocker-bottom deformity, coronary artery disease and other comorbidities has a recurrent ulcer. She has had delayed healing of her plantar foot ulcer secondary to rocker-bottom Charcot foot deformity, recurrent ulcers and infections. She completed left lower extremity vascular surgery intervention procedure and had this successfully completed at [facility] with Dr. Pang. he denies fever, chill, nausea, vomiting, calf pain, or diarrhea. She has been out of town vacation and reports she stayed off her foot. She reports onset of redness yesterday afternoon with some swelling and some increased pain. Progress of Wound: Worse status Objective Data Objective Data Vital Signs: Vital Signs Temp Pulse Resp BP 97 F L 75 18 98/45 L 12/07/20 11:26 12/07/20 11:26 12/07/20 11:26 12/07/20 11:26 Body Mass Index (BMI) 30.1 Physical Exam Const alert and oriented x3 General Appearance: cooperative HEENT normocephalic Extremity Extremity Narrative: No calf tenderness Diminished pulses Muscle wasting noted Rocker-bottom left foot consistent with Charcot and there is some laxity with manipulation of the midfoot Compartments are soft to palpate without adjacent ulcer bogginess or fluctuance General Extremity: edema and no tenderness to palpation of joints or extremities; Negative for cyanosis Skin Skin Narrative: no purulence, no streaking, no odor. There is faint erythema to the dorsal lateral left foot. There is now direct probe to bone from the ulcer site with deterioration. Adjacent skin is hairless and atrophic and there is a peripheral ulcer callus General Skin Exam: Negative for erythema Neuro Neuro Narrative: lack of normal epicritic sensation via light touch is consistent with neuropathy status Psych cooperative and affect normal Debridement Note Debridement Note Post-Debridement Measurements and Additional Note: Post-Debridement Measurements/Treatment AMINAH - Nurse 1 - General Ulcer Assessment Start: 12/07/20 11:26 Freq: Status: Active Protocol: EUGENE Activity Type Activity Date Activity User E-Sign Co-Sign Detail Recorded Client Recorded Date Recorded By Document 12/07/20 11:26 MANE [id number] 12/07/20 11:28 RB 12/07/20 11:26 WC - Today's Visit Information Type of service Follow-up Visit (Physician/WALL COVERING CONTRACTOR ) Arrival Mode Wheelchair Transfer Assistance Manual Patient Identification Verified (Name & Yes ) Patient Requires Transmission-Based No Precautions Height and Weight Body Mass Index (BMI) 30.1 BMI Classification Obese Vital Signs Temperature (97.8 F-99.1 F) 97 F L Temperature Source Temporal Pulse Rate (60-100) 75 Pulse Location Monitor Respiratory Rate (12-18) 18 Respiratory rate source Observation Blood Pressure (90/60-120/80) 98/45 L Blood Pressure Mean (mm Hg) 62 Source Monitor Position Semi-Fowlers Blood Pressure Location Left Arm History Since Last Visit- (Skip if this is Patient's initial visit) Have you changed medications since your No last visit? Any new allergies or adverse reactions No Had a fall/change in ADL's that may No increase risk of falls Signs or symptoms of abuse and/or No neglect since last visit Have you been in the hospital since your No last visit? Has dressing in place as prescribed Yes Has compression in place as prescribed No Has offloadiing in place as prescribed Yes Experienced any changes in pain level or No management Pain Scale: 0-10 Numeric Is Patient Pain Free? Yes - Nurse 1 - General Ulcer Measurement Start: 12/07/20 11:26 Freq: Status: Active Protocol: Activity Type Activity Date Activity User E-Sign Co-Sign Detail Recorded Client Recorded Date Recorded By Document 12/07/20 11:26 [id number] 12/07/20 11:28 12/07/20 11:26 Wound Center Nurse 1 8. L foot plantar post op -Combined with other wound No -Current Size (cm) - Length 1.4 -Current Size (cm) - Width 2 -Current Size (cm) - Depth 1.6 -Total Square Cm 2.8 -Tunneling No -Undermining/Tunneling Yes -Undermining/Tunneling Starts (O'clock 3 ) -Undermining/Tunneling Ends (O'clock) 5 -Maximum Distance (cm) 1.5 -Exudate Amt Large -Exudate Type Serosanguineous -Wound Margin Distinct, Outline Attached -Granulation Amt Large (67-100%) -Granulation Quality Lovell -Slough/Fibrin Yes -Necrosis Amt Small (1-33%) -Necrotic Tissue Type Adherent Slough -Structure Exposed N/A -Texture (Shannon-wound Skin Appearance) Assessed -Moisture (Shannon-wound Skin Appearance) Assessed -Color (Shannon-wound Skin Appearance) Assessed -Temperature (Shannon-wound Skin No Abnormality Appearance) (Pt Warm) -Tenderness on Palpation (Shannon-wound No Skin Appearance) -Ulcer Cleansing Wound Cleanser -Foul Odor after Cleansing No -Anesthetic Used 4% Lidocaine Solution 12/07/20 11:28 Wound Center by Davida Angel pt states epicord fell off on 12/05/2020 Initialized on 12/07/20 11:28 - END OF NOTE WC - Nurse 3 - General Ulcer D/C NN Start: 12/07/20 11:26 Freq: Status: Active Protocol: Activity Type Activity Date Activity User E-Sign Co-Sign Detail Recorded Client Recorded Date Recorded By Document 12/07/20 12:06 MANE [id number] 12/07/20 12:07 MANE 12/07/20 12:06 Wound Care Nurse 3 -Other Dressing saline , moistened gauze -Primary Dressing Covered/Secured with Dry Gauze,Dry Gauze & Roll Gauze,Secured with Tape Pain Scale: 0-10 Numeric Is Patient Pain Free? Yes WC - Visit Discharge Discharge Condition Stable Ambulatory Status Wheelchair Transportation Private Auto Medication Reconcilliation completed & No provided to patient/care provider Clinical Summary of Care Provided Yes Notes: pt mildly confused and unable to use own cell phone to call for sheepskin pickler from appointment. nurse called pt for sheepskin pickler. Wound debrided: plantar left foot Wound Grade/Stage: 2 Type of Debridement: Excisional debridement Anesthesia Used: 4% Lidocaine Solution Depth: in the subcutaneous layer Percentage of wound debrided: 100 Instrument Used: #15 blade Tissue Removed: fibrous, devitalized subcutaneous, biofilm, slough Severity: Fat Layer Exposed Amount of bleeding with debridement: Mild Bleeding Controlled with: Pressure Patient tolerated procedure: Patient tolerated procedure well Assessment/Plan Assessment/Plan (1) Cellulitis of left lower limb: CODE(S): L03.116 - Cellulitis of left lower limb (2) 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: CODE(S): L97.523 - Non-pressure chronic ulcer of other part of left foot with necrosis of muscle (3) Delayed wound healing: CODE(S): T14.8XXD - Other injury of unspecified body region, subsequent encounter (4) Charcot's joint of left foot: CODE(S): M14.672 - Charcot's joint, left ankle and foot (5) Type 2 diabetes mellitus with diabetic polyneuropathy: CODE(S): E11.42 - Type 2 diabetes mellitus with diabetic polyneuropathy QUALIFIERS: Diabetes mellitus intermediate designer insulin use: with intermediate designer use Qualified Code(s): E11.42 - Type 2 diabetes mellitus with diabetic polyneuropathy; Z79.4 - intermediate designer (current) use of insulin (6) Pain in left ankle and joints of left foot: CODE(S): M25.572 - Pain in left ankle and joints of left foot PLAN: The patient tolerated the procedure well. I reviewed and discussed her case. Debridement was performed excisional subcutaneous manner to the left foot. To change dressing daily with Dakin wet-to-dry. To use Dial soap. I do not recommend application of advanced wound healing product due to her worsening status. Infection work-up will be initiated. Differential diagnosis include Charcot. Updated cultures including aerobic anaerobic and MRSA PCR was obtained today. Prior cultures from surgery (09/20) with coag neg staph, strep, enterococcus. Cephalexin 500 mg every 8 hours was recommended the next week until her culture results come back. Labs: 09-19-20 with ESR 44. 4- with A1c of 7.1%.?30?21 white blood cell count 6.8. Updated labs were ordered today including ESR, C-reactive protein, CBC, and CMP. Vascular surgery intervention was performed successfully at [facility] recently with Dr. Pang w/ antioplasty at femoral through adductor into popliteal (balloon). To maintain non weightbearing status with the use of assistive devices (knee roller/walker) left lower extremity. I recommend she hangs her right heel over stacked pillows or blankets while seated or laying down. Pain controlled with home pain medication regimen per PCP. Imaging: Weightbearing left ankle and foot x-rays were reviewed from 10-14 without acute Charcot or osseous destruction at the ankle or hindfoot where her recent subjective pain is located. There is also no soft tissue emphysema or foreign body noted to the foot adjacent to the ulcer site. Prior rocker-bottom Charcot midfoot is noted with fragmentation and consolidation is consistent with prior x-rays. Updated x-rays were ordered today. To continue nutritional supplementation to optimize healing. She is taking Blue and has also been trying to eat more fresh foods. She is working on more detailed diet planning with her primary care physician. F/u wound care center 1 week. I answered all of her questions. To call sooner or go to the emergency room if her clinical appearance worsens or if she develops systemic signs of illness. She is at risk for amputation and limb loss and systemic illness due to her comorbidities and worsening foot status. The medical decision making level is moderate. There is noted moderate risk of morbidity after considering this treatment plan and diagnostic data. Considerations were given to prescription management, decisions regarding surgical options, or social determinants of health. The medical decision making level is moderate based on data including at least three of the following: review of prior external notes, review of a test, ordering a test, assessment requiring an independent historian. The problems addressed require a moderate decision making level which includes one or more chronic illnesses (w/ exacerbation, progression, or side effects), two or more stable chronic illnesses, one undiagnosed new problem w/ uncertain prognosis, one acute illness with systemic symptoms, or one acute complicated injury. Note: [employer]ful speech recognition research development director software was used to create portions of this document. Sound-alike and misspelled words, as well as other research development director errors may be contained in the documentation.
--- NOTE | 2020-12-07 12:30 | RAD_ITS ---
We are attempting to reach an attending provider to discuss findings. An addendum with communication details will be sent when the communication is complete. STUDY: X-RAY - LEFT FOOT CLINICAL: Female, 75 years old. OSTEOMYELITIS, ULCER, CHARCOT FOOT TECHNIQUE: 3 view(s) of the foot. COMPARISON: 10/17/2020. FINDINGS: Extensive mid foot soft tissue swelling without soft tissue gas. Less obvious ulceration at the undersurface of the mid foot. Chronic appearing bone destruction at the midfoot. No obvious acute bone destruction. No acute dislocation. No acute fracture. Diffuse osteopenia/osteoporosis. Advanced degenerative changes at the midfoot. Vascular calcifications. RAD/Foot min 3 Views IMPRESSION: Extensive mid foot swelling with soft tissue gas (MRI recommended) No obvious acute bone destruction Chronic appearing mid foot bone destruction with advanced degenerative changes Electronically Signed: Con Faith DO at 10:31 EDT Tel , Service support ,
[2020-12-07 14:41] LABS: M R Staph aureus DNA By PCR Negative (Negative); Probe Check PASS; Specimen Processing Control PASS; Staph aureus DNA By PCR NEGATIVE (Negative)
== END 2020-12-24 23:59 ==
LOC: WC 11:00
PROVIDERS: PCP Family Medicine; Referring Provider Podiatrist; Visit Provider Podiatrist
DX: E11.621 Type 2 diabetes mellitus with foot ulcer (principal); L97.423 Non-pressure chronic ulcer of left heel and midfoot with necrosis of muscle; E11.610 Type 2 diabetes mellitus with diabetic neuropathic arthropathy; E11.42 Type 2 diabetes mellitus with diabetic polyneuropathy; L03.116 Cellulitis of left lower limb; I25.10 Atherosclerotic heart disease of native coronary artery without angina pectoris; Z79.4 Long term (current) use of insulin; Z79.82 Long term (current) use of aspirin; Z79.02 Long term (current) use of antithrombotics/antiplatelets; Z79.891 Long term (current) use of opiate analgesic; I25.2 Old myocardial infarction
CPT/HCPCS: 11042; 73630; 87070; 87075; 87077; 87186; 87205; 87640

== ENCOUNTER → 2020-12-07 12:23 | Outpatient (CLI) | payer MEDICARE, OTHER, SELFPAY ==
[2020-12-07 11:26] VITALS: BMI 30.1
[2020-12-07 15:05] LABS: Erythrocyte Sedimentation Rate 56 mm/hr (0-30)
[2020-12-07 15:07] LABS: Absolute Lymphocyte Count 1.89 X10^3/uL (0.83-4.51); Absolute Neutrophil Count 5.7 X10^3/uL (2.0-7.7); Basophil# 0.02 X10^3/uL; Basophil% 0.2 % (0-1); Eosinophil# 0.22 X10^3/uL; Eosinophils% 2.5 % (0-5); Lymphocyte # 1.89 X10^3/ul (0.83-4.51); Lymphocyte % 21.6 % (19-41); Mean Corp Hgb Conc 30.6 g/dL (32-36); Mean Corpuscular Hgb 27.2 pg (27.0-32.0); Mean Corpuscular Volume 89.1 fL (81-99); Mean Platelet Vol. 9.3 fl (6.2-12.0); Monocyte# 0.85 X10^3/uL; Monocyte% 9.7 % (0-10); NRBC Flagged by Analyzer 0 % (0-5); Neutrophil % 65.4 % (47-70); Platelet Count 294 K/mm3 (150-450); RBC Distribution Width CV 15.8 % (11.6-14.6); RBC Distribution Width SD 51.8 fl (35.1-43.9); Red Blood Count 4.04 M/mm3 (4.2-5.4); White Blood Count 8.7 K/mm3 (4.4-11.0)
[2020-12-07 15:22] LABS: ALB/GLOB Ratio 0.5 RATIO (0.9-2.4); AST(SGOT) 21 U/L (15-37); Alanine Aminotransfer ALT/SGPT 27 U/L (13-56); Albumin, Serum 2.6 g/dL (3.2-5.0); Alkaline Phosphatase 102 U/L (45-117); Anion Gap 4 (5-15); BUN 48 mg/dL (7-18); BUN/Creat Ratio 34.8 RATIO (10-20); Calcium,Total 8.7 mg/dL (8.5-10.1); Chloride 106 mmol/L (98-107); Creatinine, Serum 1.38 mg/dL (0.55-1.02); EST Glomerular Filtration Rate 40 mL/min (>60); Est Glom Filt Rate - Afr Amer 48 mL/min (>60); Glucose 161 mg/dL (74-106); Potassium 5.9 mmol/L (3.5-5.1); Protein, Total 7.6 g/dL (6.4-8.2); Sodium Level 131 mmol/L (136-145)
== END ==
PROVIDERS: PCP Family Medicine; Referring Provider Podiatrist; Visit Provider Podiatrist
DX: M86.9 Osteomyelitis, unspecified (principal); L97.524 Non-pressure chronic ulcer of other part of left foot with necrosis of bone; A52.16 Charcot's arthropathy (tabetic)
CPT/HCPCS: 11042; 36415; 73630; 80053; 85025; 85652; 86140; 87070; 87075; 87205; 87640

== ENCOUNTER 2020-12-08 17:33 | Inpatient (IN) | payer MEDICARE, OTHER, SELFPAY ==
[2020-12-07 11:26] VITALS: BMI 30.1
[2020-12-08 17:34] VITALS: BP 144/73; PULSE 70; RESP 16; TEMP 36.7; O2SAT 99; BMI 30.9
--- NOTE | 2020-12-08 19:26 | EDS_ITS ---
HPI History of Present Illness Chief Complaint: Wound Check Detail of Chief Complaint: Redness and swelling to the left foot x5 days Narrative Narrative: Patient presents to the emergency department with redness and swelling to the left foot. Patient has history of Charcot foot and is a diabetic. She noticed an area of redness and swelling to the dorsum of the left foot about 5 days ago. Patient saw her network intelligence analyst several days ago and then had an x-ray yesterday that showed some gas in the soft tissues. Patient was referred to the emergency department to be admitted for IV antibiotics and possible formal operative intervention. Patient denies fever, chills or sweats. [facility] Medical History (Updated 12/08/20 @ 20:[address] Tahira Cuenca, DO) Atherosclerotic heart disease of false pass coronary artery without angina pectoris Carotid artery disease Carpal tunnel syndrome Charcot's joint of left foot Essential hypertension GERD (gastroesophageal reflux disease) Gout History of blood clots History of blood transfusion History of CVA (cerebrovascular accident) Hyperlipidemia Hypothyroidism IBS (irritable bowel syndrome) Iron deficiency anemia Neuropathy Obesity Osteoporosis Peripheral arterial occlusive disease Peripheral vascular disease Type 2 diabetes mellitus with diabetic polyneuropathy Ulcer of abdomen wall with fat layer exposed Ulcer of left foot with fat layer exposed Vitamin D deficiency Home Medications pravastatin 40 mg PO QHS 03/10/17 [History Last Taken 09/18/20] esomeprazole magnesium 20 mg PO DAILY 09/21/19 [History Last Taken 09/19/20] allopurinol 100 mg PO DAILY 03/17/20 [History Last Taken 09/19/20] calcium citrate 200 mg PO BID #0 03/17/20 [Rx Last Taken 09/19/20] aspirin 81 mg tablet,delayed release 81 mg PO DAILY 04/05/20 [History Last Taken 09/18/20] cbd 1 dose PO 4X/DAY PRN 04/05/20 [History Last Taken Unknown] pwojfu-byoxmthw-ezcwlgi 24,000-76,000-120,000 unit capsule,delayed rel 1 cap PO BID cap 04/05/20 [History Last Taken 09/19/20] carvedilol 25 mg PO BID 08/17/20 [History Last Taken 09/19/20] levothyroxine 75 mcg PO QHS 08/17/20 [History Last Taken 09/18/20] linaclotide 72 mcg PO DAILY 08/17/20 [History Last Taken 09/14/20] melatonin 6 mg PO QHS 08/17/20 [History Last Taken 09/18/20] metoclopramide HCl 10 mg PO Q8H PRN 08/17/20 [History Last Taken 09/19/20] ocqdtcmuwxds-daot-gbcpj acid 0.5 tablet PO BID 08/17/20 [History Last Taken 09/19/20] trazodone 100 mg PO QHS PRN 08/17/20 [History Last Taken 09/18/20] venlafaxine 100 mg PO BID 08/17/20 [History Last Taken 09/19/20] wheat dextrin 15 ml PO DAILY 08/17/20 [History Last Taken 09/19/20] insulin lispro 8 unit SC BID 08/22/20 [History Last Taken 09/19/20] acetaminophen 1,000 mg PO Q8H PRN PRN #0 tablet 09/09/20 [Rx Last Taken 09/19/20] tizanidine 4 mg PO Q8H PRN PRN #20 tablet 09/09/20 [Rx Last Taken 09/19/20] clopidogrel 75 mg tablet 75 mg PO DAILY #90 tablet 09/16/20 [Rx Last Taken 09/19/20] prelv-hdmz-HzOBN-aycxtz-mo-cmr 1 packet PO BIDCM 09/19/20 [History Last Taken 09/19/20] celecoxib 200 mg PO DAILY 09/19/20 [History Last Taken 09/18/20] morphine 3 ml PO Q6H PRN PRN 09/19/20 [History Last Taken 09/19/20] nitroglycerin 0.4 mg SL TID PRN PRN 09/19/20 [History Last Taken Unknown] polyethylene glycol 3350 17 gm PO DAILY 09/19/20 [History Last Taken 09/19/20] sennosides-docusate sodium 1 tablet PO BID 09/19/20 [History Last Taken 09/19/20] cephalexin 500 mg PO Q8H 28 Days #84 cap 09/24/20 [Rx Last Taken Unknown] guaifenesin [Mucus Relief ER] 600 mg PO BID #14 tab 09/24/20 [Rx Last Taken Unknown] insulin glargine 15 unit SC BID #0 ml 09/24/20 [Rx Last Taken 09/19/20] amlodipine 5 mg tablet 5 mg PO BID #180 tab 11/09/20 [Rx Last Taken Unknown] lisinopril 10 mg tablet 10 mg PO BID #90 tab 11/21/20 [Rx Last Taken Unknown] isosorbide mononitrate 60 mg PO BID 12/08/20 [History Last Taken Unknown] Allergy/AdvReac Type Severity Reaction Status Date / Time doxycycline Allergy Severe all over Verified 12/08/20 17:34 body hives and itching atorvastatin calcium Allergy Unknown Verified 12/08/20 17:34 [From Lipitor] bupropion HCl Allergy Unknown Verified 12/08/20 17:34 [From Wellbutrin] mannitol [From Reclast] Allergy joint Verified 12/08/20 17:34 pain, unable to breathe, unable to walk propoxyphene napsylate Allergy Unknown Verified 12/08/20 17:34 [From Darvocet-N 100] Quinolones Allergy Unknown Verified 12/08/20 17:34 Tetanus Vaccines and Toxoid Allergy Chest Verified 12/08/20 17:34 [Tetanus Vaccines & Toxoid] tightness tizanidine Allergy Unknown Verified 12/08/20 17:34 zoledronic acid Allergy joint Verified 12/08/20 17:34 [From Reclast] pain,unable to breathe, unaable to walk pravastatin AdvReac Severe Myalgias Verified 12/08/20 17:34 gemfibrozil AdvReac Intermediate Unknown Verified 12/08/20 17:34 NSAIDS (Non-Steroidal AdvReac Other Verified 12/08/20 17:34 Anti-Inflamma Family History (Reviewed 11/15/20 @ 15:10 by Lars Wahl INTERNAL COMBUSTION ENGINE INSPECTOR, INTERNAL COMBUSTION ENGINE INSPECTOR-C) Mother , age 75 Cancer CVA (cerebral vascular accident) CAD (coronary artery disease) Father CAD (coronary artery disease) History of coronary artery bypass graft Sister CAD (coronary artery disease) Multiple sclerosis Other Anxiety Bleeding disorder Depression Diabetes Heart disease High cholesterol Hypertension Surgical History History of coronary artery bypass graft History of excision of lesion History of gastric bypass History of gastric bypass History of left heart catheterization History of ventral hernia repair Hx of ventral hernia repair Stented coronary artery (12/03/18) Social History (Reviewed 11/15/20 @ 15:10 by Lars Wahl INTERNAL COMBUSTION ENGINE INSPECTOR, INTERNAL COMBUSTION ENGINE INSPECTOR-C) Smoking Status: Never smoker alcohol intake: never substance use type: does not use caffeine: Yes Type: coffee what type of physical activity do you participate in: none seatbelt use: sometimes do you feel safe at home: Yes additional social history: DOES NOT TAKE ASPIRIN DOES TAKE IBUPROFEN NEEDED ROS ROS ED Constitutional Constitutional ED: Reports systems reviewed and no addt'l complaints, except as documented; Denies body ache(s), change in weight or chills Eyes Eyes: Denies acute decrease in peripheral vision, change in vision, double vision or loss of vision ENT ENT ED: Reports none; Denies ear pain, lip swelling, loss taste/smell, neck pain, otalgia or sore throat Cardiovascular Cardiovascular: Reports none; Denies abdominal pain, chest pain with activity, leg edema, lightheadedness, palpitations, rapid heart rate or syncope Respiratory/Chest Respiratory/Chest: Reports none; Denies change in mental status, dry cough, dyspnea, hemoptysis, shortness of breath at rest or shortness of breath with exertion Gastrointestinal Gastrointestinal: Reports none; Denies abdominal pain, change in stool character, diarrhea, hematemesis, hematochezia, melena, rectal bleeding or vomiting Genitourinary Genitourinary ED: Reports none; Denies abdominal discomfort, anuria, dysuria, genital pain or polyuria Musculoskeletal Musculoskeletal: Reports none; Denies arthralgias, back pain, difficulty walking, extremity pain, muscle weakness or myalgias Integumentary Reports none and other Details: Abscess/redness swelling/cellulitis left foot ; Denies abscess or rash Neurologic Neurologic: Reports none; Denies abnormal gait, confusion, focal weakness, frequent falls, headache(s), loss of vision, numbness, paresthesias, radicular pain, vertigo or weakness Psychiatric Psychiatric: Reports systems reviewed and no addt'l complaints, except as documented and none; Denies behavioral changes, confusion, difficulty concentr ating, hallucinations, suicidal ideation, tactile hallucinations or visual hallucinations Endocrine Endocrinology: Denies none, cold intolerance, excessive sweating, fatigue or heat intolerance Hematologic/Lymphatic Hematologic/Lymphatic: Reports none; Denies anemia, easy bleeding or easy bruising Allergic/Immunologic Allergic/Immunologic ED: Denies as per HPI, none, lip swelling, mouth swelling, throat swelling, tongue swelling or hives EXAM Physical Exam Const Vital Signs: 12/08/20 17:34 Temperature 98.0 F Temperature Source Oral Pulse Rate 70 Respiratory Rate 16 Blood Pressure 144/73 H Blood Pressure Mean 96 Pulse Ox 99 Oxygen Delivery Method Room Air Positive well nourished and well developed General Appearance ED: well developed and NAD HEENT Reports TM's clear and moist mucous membranes normocephalic and atraumatic; Negative for trauma or tenderness Tympanic Membrane ED: Yes TM's clear Eyes PERRL and EOMs intact bilaterally General Eye ED: Negative for pale conjunctiva or scleral icterus Neck no lymphadenopathy, supple and no JVD General: Negative for tenderness Chest Wall inspection of chest normal and palpation of chest normal Chest: Negative for tenderness Resp normal respiratory effort and clear to auscultation bilaterally Effort and Inspection: Negative for respiratory distress or pain with movement Auscultation: Negative for rhonchi, wheezes or diminished lung sounds Cardio regular rate, regular rhythm, S1 normal heart sound, S2 normal heart sound and no murmurs Peripheral Pulses: pulses 2+ throughout GI normal to inspection, nondistended, normoactive bowel sounds, soft to palpation, non-tender, non-distended and no masses Back/Spine no CVA tenderness and no thoracic nor lumbar tenderness Extremity normal to inspection Extremity Narrative: Redness and swelling to the left foot. Over the dorsal lateral aspect there is a soft tissue swelling that is fluctuant with surrounding erythema. Patient also has a large gaping wound to the plantar aspect of the foot that is chronic. General Extremety ED: Negative for edema General Extremity: Negative for edema Neuro oriented x3, CN's II-XII intact bilaterally, no sensory deficits noted and gait normal Sensorium / Orientation: awake, alert, oriented to person, oriented to place and oriented to time Motor Exam: strength 5/5 throughout and strength abnormal Psych mental status grossly normal Skin no rashes or lesions noted and no wounds MDM MDM MDM Narrative Medical decision making narrative: Case discussed with hospitalist will evaluate patient for admission. Patient was started on clindamycin IV as well as vancomycin IV. Patient has an elevated potassium of 5.9 which she also had yesterday. I will obtain an EKG. Lab Data Attestation: I reviewed the patient's lab results. Labs: Laboratory Results - last 24 hr 12/08/20 12/08/20 19:46 19:46 WBC 8.1 RBC 3.93 L Hgb 10.7 L Hct 34.1 L MCV 86.8 MCH 27.2 MCHC 31.4 L RDW Std Deviation 48.4 H RDW Coeff of Marco 15.1 H Plt Count 263 MPV 8.6 Immature Gran % (Auto) 0.500 Neut % (Auto) 73.0 H Lymph % (Auto) 17.6 L Harris % (Auto) 6.3 Eos % (Auto) 2.5 Baso % (Auto) 0.1 Absolute Neuts (auto) 5.9 Absolute Lymphs (auto) 1.42 Nucleated RBC % 0 Sodium 130 L Potassium 5.9 H Chloride 104 Carbon Dioxide 18.0 L Anion Gap 8 BUN 50 H Creatinine 1.29 H Estim Creat Clear Calc 33.54 Est GFR (MDRD) Af Amer 52 L Est GFR (MDRD) Non-Af 43 L BUN/Creatinine Ratio 38.8 H Glucose 255 H Calcium 8.4 L EKG Initial EKG: Attestation: I personally reviewed and interpreted this EKG as follows: Comments: Sinus rhythm with ventricular rate of 84 bpm. No hyperkalemic changes noted. Discharge Plan Dx/Rx/DC Orders Clinical Impression: Cellulitis, Diabetic foot infection, Acute hyperkalemia Disposition Disposition: Acute Care Hospital [facility]
[2020-12-08 19:58] LABS: Absolute Lymphocyte Count 1.42 X10^3/uL (0.83-4.51); Absolute Neutrophil Count 5.9 X10^3/uL (2.0-7.7); Basophil# 0.01 X10^3/uL; Basophil% 0.1 % (0-1); Eosinophils% 2.5 % (0-5); Hematocrit 34.1 % (37-47); Hemoglobin 10.7 g/dL (12.0-15.0); Lymphocyte # 1.42 X10^3/ul (0.83-4.51); Lymphocyte % 17.6 % (19-41); Mean Corp Hgb Conc 31.4 g/dL (32-36); Mean Corpuscular Hgb 27.2 pg (27.0-32.0); Mean Corpuscular Volume 86.8 fL (81-99); Mean Platelet Vol. 8.6 fl (6.2-12.0); Monocyte# 0.51 X10^3/uL; Monocyte% 6.3 % (0-10); NRBC Flagged by Analyzer 0 % (0-5); Platelet Count 263 K/mm3 (150-450); RBC Distribution Width CV 15.1 % (11.6-14.6); RBC Distribution Width SD 48.4 fl (35.1-43.9); Red Blood Count 3.93 M/mm3 (4.2-5.4); White Blood Count 8.1 K/mm3 (4.4-11.0)
--- NOTE | 2020-12-08 20:12 | HP.PCM.HOS_ITS ---
HPI - General General Date of Admission: 12/08/20 HPI Narrative SEBASTIÁN REYES, is a 75 F with an extensive PMH as outlined below who presents with a complaint of redness and swelling to her left foot for 5 days. 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 She had noticed an area of redness and swelling to the dorsum of her left foot about 5 days ago, and went to see her bit shaver. She was referred for an xray fo the right foot which showed gas in the soft tissues; she was therefore referred to the ED for admission for IV antibiotics and possible surgical intervention. She was started on oral clindamycin 1 day ago, and has had 3 doses of it so far. Vitals in the ED showed BP of 144/73, KS of 70, RR of 16 and temp of 98F. CBC showed wbc of 8.1, Hb of 10.7; BMP was pending. Right foot xray done yesterday showed extensive mid foot soft tissue swelling without soft tissue gas and less obvious ulceration at the undersurface of the mid foot and chronic apeparing bone destruction at the midfoot and no obvious actue bone destruction. She is being admitted to be managed for diabetic foot infection of the left foot. [facility] Medical History (Updated 12/08/20 @ 23:[address] Nicholas Espino, MIRANDA) Anemia Anxiety Atherosclerotic heart disease of [place] coronary artery without angina pectoris Carotid artery disease Carpal tunnel syndrome Charcot's joint of left foot Chest pain Congestive heart failure (CHF) Coronary artery disease CPAP (continuous positive airway pressure) dependence Diabetes DVT (deep venous thrombosis) Essential hypertension GERD (gastroesophageal reflux disease) GI bleed Gout History of blood clots History of blood transfusion History of CVA (cerebrovascular accident) Hyperlipidemia Hypertension Hypothyroidism Hypothyroidism IBS (irritable bowel syndrome) Iron deficiency anemia Kidney stones Migraines Myocardial infarct Neuropathy Non-smoker Obesity Osteoporosis Peripheral arterial occlusive disease Peripheral vascular disease Rheumatoid arthritis Sleep apnea Type 2 diabetes mellitus with diabetic polyneuropathy Ulcer of abdomen wall with fat layer exposed Ulcer of left foot with fat layer exposed Vitamin D deficiency Home Medications pravastatin 40 mg PO QHS 03/10/17 [History Last Taken 12/07/20] allopurinol 100 mg PO DAILY 03/17/20 [History Last Taken 12/08/20] calcium citrate 200 mg PO BID #0 03/17/20 [Rx Last Taken 12/08/20] aspirin 81 mg tablet,delayed release 81 mg PO DAILY 04/05/20 [History Last Taken 12/07/20] cbd 1 dose PO 4X/DAY PRN 04/05/20 [History Last Taken 12/08/20] gexirk-xzmmurdc-biusdyn 24,000-76,000-120,000 unit capsule,delayed rel 1 cap PO BID cap 04/05/20 [History Last Taken 12/08/20] carvedilol 25 mg PO BID 08/17/20 [History Last Taken 12/08/20] levothyroxine 75 mcg PO QHS 08/17/20 [History Last Taken 12/07/20] linaclotide 72 mcg PO DAILY 08/17/20 [History Last Taken 11/21/20] metoclopramide HCl 10 mg PO Q8H PRN 08/17/20 [History Last Taken 12/07/20] atqveqaozstb-ibfz-twzfw acid 0.5 tablet PO BID 08/17/20 [History Last Taken 12/08/20] trazodone 100 mg PO QHS PRN 08/17/20 [History Last Taken 12/07/20] venlafaxine 100 mg PO BID 08/17/20 [History Last Taken 12/08/20] insulin lispro 6 - 8 unit SUBCUT BID 08/22/20 [History Last Taken 12/08/20] acetaminophen 1,000 mg PO Q8H PRN PRN #0 tablet 09/09/20 [Rx Last Taken 12/08/20] tizanidine 4 mg PO Q8H PRN PRN #20 tablet 09/09/20 [Rx Last Taken 12/07/20] clopidogrel 75 mg tablet 75 mg PO DAILY #90 tablet 09/16/20 [Rx Last Taken 12/08/20] ynotp-nfzg-YdIFN-aduiao-bo-fuf 1 packet PO BIDCM 09/19/20 [History Last Taken 12/08/20] morphine 3 ml PO Q6H PRN PRN 09/19/20 [History Last Taken 12/07/20] nitroglycerin 0.4 mg SL TID PRN PRN 09/19/20 [History Last Taken 1 Week Ago ~12/01/20] polyethylene glycol 3350 17 gm PO DAILY 09/19/20 [History Last Taken 12/08/20] sennosides-docusate sodium 1 tablet PO QHS 09/19/20 [History Last Taken 12/07/20] amlodipine 5 mg tablet 5 mg PO BID #180 tab 11/09/20 [Rx Last Taken 12/08/20] cephalexin 500 mg PO Q8H 12/08/20 [History Last Taken 12/08/20] esomeprazole magnesium 20 mg PO BID 12/08/20 [History Last Taken 12/08/20] fexofenadine [Abimbola] 180 mg PO DAILY 12/08/20 [History Last Taken 12/08/20] guaifenesin [Mucus Relief ER] 600 mg PO BID 12/08/20 [History Last Taken 12/08/20] ibuprofen-diphenhydramine cit [Advil PM] 2 cap PO QHS 12/08/20 [History Last Taken 12/07/20] insulin detemir U-100 [Levemir FlexTouch U-100 Insuln] 34 unit SUBCUT BID [History Last Taken 12/08/20] isosorbide mononitrate 60 mg PO DAILY 12/08/20 [History Last Taken 12/08/20] isosorbide mononitrate 120 mg PO QHS 12/08/20 [History Last Taken 12/07/20] lisinopril 10 mg PO BID 12/08/20 [History Last Taken 12/08/20] pantoprazole 40 mg PO DAILY 12/08/20 [History Last Taken 12/08/20] Allergy/AdvReac Type Severity Reaction Status Date / Time doxycycline Allergy Severe all over Verified 12/08/20 17:34 body hives and itching atorvastatin calcium Allergy Unknown Verified 12/08/20 17:34 [From Lipitor] bupropion HCl Allergy Unknown Verified 12/08/20 17:34 [From Wellbutrin] mannitol [From Reclast] Allergy joint Verified 12/08/20 17:34 pain, unable to breathe, unable to walk propoxyphene napsylate Allergy Unknown Verified 12/08/20 17:34 [From Darvocet-N 100] Quinolones Allergy Unknown Verified 12/08/20 17:34 Tetanus Vaccines and Toxoid Allergy Chest Verified 12/08/20 17:34 [Tetanus Vaccines & Toxoid] tightness tizanidine Allergy Unknown Verified 12/08/20 17:34 zoledronic acid Allergy joint Verified 12/08/20 17:34 [From Reclast] pain,unable to breathe, unaable to walk pravastatin AdvReac Severe Myalgias Verified 12/08/20 17:34 gemfibrozil AdvReac Intermediate Unknown Verified 12/08/20 17:34 NSAIDS (Non-Steroidal AdvReac Other Verified 12/08/20 17:34 Anti-Inflamma Family History Mother , age 75 Cancer CVA (cerebral vascular accident) CAD (coronary artery disease) Father CAD (coronary artery disease) History of coronary artery bypass graft Sister CAD (coronary artery disease) Multiple sclerosis Other Anxiety Bleeding disorder Depression Diabetes Heart disease High cholesterol Hypertension Surgical History (Updated 12/08/20 @ 21:59 by Olivia Maldonado) History of appendectomy History of cholecystectomy History of coronary artery bypass graft History of coronary artery stent placement History of excision of lesion History of gastric bypass History of gastric bypass History of left heart catheterization History of ventral hernia repair Hx of CABG Hx of ventral hernia repair Stented coronary artery (12/03/18) Social History Smoking Status: Never smoker alcohol intake: never substance use type: does not use caffeine: Yes Type: coffee what type of physical activity do you participate in: none seatbelt use: sometimes do you feel safe at home: Yes additional social history: DOES NOT TAKE ASPIRIN DOES TAKE IBUPROFEN NEEDED ROS Constitutional Constitutional: Denies anorexia, chills, fatigue, fever(s), malaise, night sweat s or weakness Eyes Eyes: Denies double vision ENT HEENT: Denies dysphagia, hearing loss, nasal congestion, nasal discharge or sore throat Cardiovascular Cardiovascular: Denies chest pain, dyspnea on exertion, edema, orthopnea, palpitations, paroxysmal nocturnal dyspnea, rapid heart rate or syncope Respiratory/Chest Respiratory/Chest: Denies cough, dyspnea, productive cough, shortness of breath at rest or shortness of breath with exertion Gastrointestinal Gastrointestinal: Denies abdominal pain, constipation, diarrhea, nausea or v omiting Genitourinary Genitourinary: Denies burning urination or urinary frequency Musculoskeletal Musculoskeletal: Reports other Details: right foot pain ; Denies arthralgias or back pain Neurologic Neurologic: Denies confusion, focal weakness, seizure-like activity, seizures or syncope Psychiatric Psychiatric: Denies anxiety Hematologic/Lymphatic Hematologic/Lymphatic: Denies anemia Vital Signs Vital Signs Vital Signs: 12/08/20 17:34 Temperature 98.0 F Temperature Source Oral Pulse Rate 70 Respiratory Rate 16 Blood Pressure 144/73 H Blood Pressure Mean 96 Pulse Ox 99 Oxygen Delivery Method Room Air Weight Weight: 180 lb Body Mass Index (BMI) 30.9 Physical Exam Const alert, oriented x3 and no apparent distress General Appearance: cooperative HEENT normocephalic, head/scalp atraumatic, hearing grossly normal bilaterally and moist oral mucous membranes Eyes PERRL, EOMs intact bilaterally and conjunctivae normal Neck no lymphadenopathy Resp normal respiratory effort, no retractions, no use of accessory muscles and clear to auscultation bilaterally Cardio regular rate, regular rhythm, S1 normal heart sound, S2 normal heart sound and no murmurs GI normal to inspection, nondistended, normoactive bowel sounds, soft to palpation, non-tender and non-distended Extremity Extremity Narrative: redness and swelling of left foot with surrounding fluctuance and erythema, with a large gaping wound on the plantar aspect of the foot, which was covered with clean dressing Peripheral Pulses: Yes pulses 2+ throughout Skin no rashes or lesions noted Neuro oriented x3 Sensorium / Orientation: awake and alert Psych affect normal Results Lab / Micro Data Result Diagrams: 12/09/20 07:25 12/09/20 07:25 Labs: Laboratory Results - last 24 hr 12/08/20 19:46: WBC 8.1, RBC 3.93 L, Hgb 10.7 L, Hct 34.1 L, MCV 86.8, MCH 27.2, MCHC 31.4 L, RDW Std Deviation 48.4 H, RDW Coeff of Marco 15.1 H, Plt Count 263, MPV 8.6, Immature Gran % (Auto) 0.500, Neut % (Auto) 73.0 H, Lymph % (Auto) 17.6 L, [place] % (Auto) 6.3, Eos % (Auto) 2.5, Baso % (Auto) 0.1, Absolute Neuts (auto) 5.9, Absolute Lymphs (auto) 1.42, Nucleated RBC % 0 Assessment & Plan Assessment/Plan (1) Diabetic foot infection: (2) Cellulitis: PLAN: #Cellulitis with diabetic foot infection * admit to Med surg * started on IV vancomycin and clindamycin; will continue * blood and wound cultures obtained * IV morphin and pO tylenol as well as PO oxycodone for pain * PT/OT consult * consult podiatry * get MRI of the left foot * #Hyperkalemia * potassium is 5.9 * will hold all potassium sparing meds * give PO kayexalate; trend potassium * #Hyponatremia * Na is 130. Hydrate gently with iVF and trend * #Type 2 diabetes mellitus with peripheral neuropathy * on lantus 15 untis BID * ISS. Accuchecks ACHS * # CAD * on aspirin and imdur as well as statin * #Depression * stable #Hypertension: on amlodipine. Hold lisinopril. #Hyperlipidemia: on statin DVT prophylaxis: lovenox Charges/Coding Visit Charges Inpatient E&M: 28130 Init Hosp L3
[2020-12-08 20:17] LABS: Anion Gap 8 (5-15); BUN 50 mg/dL (7-18); BUN/Creat Ratio 38.8 RATIO (10-20); Calcium,Total 8.4 mg/dL (8.5-10.1); Chloride 104 mmol/L (98-107); Creatinine, Serum 1.29 mg/dL (0.55-1.02); EST Glomerular Filtration Rate 43 mL/min (>60); Est Glom Filt Rate - Afr Amer 52 mL/min (>60); Estimated Creatinine Clearance 33.54 ml/min; Glucose 255 mg/dL (74-106); Potassium 5.9 mmol/L (3.5-5.1); Sodium Level 130 mmol/L (136-145)
[2020-12-08 20:23] LABS: Lactic Acid 0.9 mmol/L (0.4-1.9)
--- NOTE | 2020-12-08 20:23 | EKG12_ITS ---
Test Reason : DYSRHYTHMIA Blood Pressure : / mmHG Vent. Rate : 084 BPM Atrial Rate : 084 BPM P-R Int : 196 ms QRS Dur : 094 ms QT Int : 364 ms P-R-T Axes : -15 -27 063 degrees QTc Int : 430 ms Normal sinus rhythm Normal ECG Confirmed by MIGUEL ANGEL ANAYA, FADI ([id number]), graphic editor CAMERON CALLES ([id number]) on 12/12/2020 9:43:32 AM Referred By: GRICEL Confirmed By:POLLY MICHELLE MD
[2020-12-08] MEDS: Acetaminophen 325 MG Tablet 650 MG PO (20:58)
[2020-12-08 21:12] VITALS: BP 146/68; PULSE 73; RESP 18; TEMP 37.1; O2SAT 99
[2020-12-08 21:43] VITALS: BP 145/51; PULSE 79; RESP 16; TEMP 36.8; O2SAT 100
[2020-12-08 21:44] VITALS: BMI 30.4
--- NOTE | 2020-12-08 23:08 | PCM.CONS.GEN ---
Assessment & Plan Assessment/Plan (1) Cellulitis of left lower limb: (2) 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 evidence of necrosis: (3) Type 2 diabetes mellitus with foot ulcer: (4) Type 2 diabetes mellitus with diabetic polyneuropathy: (5) Abscess of left foot: PLAN: Evaluation performed. Reviewed left foot xrays from 12/07/2020 - there is noted to be gas overlying the dorsal midfoot lateral aspect. Clinically she has a visible abscess, with surround cellulitis. The plantar foot ulcer with no localized signs of infection and appears to be healing well. The patient has been started on IV clindamycin. Patient is afebril and WBC is normal. Discussed the options with the patient, and she elected to proceed with I+D with debridement of all nonviable, infected and necrotic tissue from the left foot. Reviewed possible benefits vs risks. Advised her the risks include but not limited to pain, worsening infection, need for further procedures, nonhealing, delayed healing, bleeding, swelling, loss of limb, loss of life. Reviewed alternation options - no treatment, antibiotics, monitoring. She elected to proceed with the procedure this evening. After consent was obtained the site was cleansed with 70% Isopropyl alcohol. No anesthesia was needed due to patient's peripheral neuropathy. The abscess (gas collection site) was incised with a 10 scalpel blade - there was immediate purulent drainage coming out from the site. This was drained and the abscess was debrided and excised in sharp excisional fashion using the 10 blade, this was down to fascia layer - it measured 1.3cm x 1.3cm and down to fascia layer. The site was flushed with copious amounts of normal saline solution. The remaining tissues were healthy and viable - the plantar midfoot ulceration was not debrided as it was just debrided yesterday at the wound center - this wound appears healthy and viable with no cardinal signs of infection. Hemostasis was achieved with pressure and gauze. The site was packed with betadine gauze, applied dry gauze to the plantar foot ulcer, and overlying dressing of gauze, kerlix and shree bandage applied in noncompressive fashion. Also a deep culture was obtained during the procedure from the site and sent to microbiology for further evaluation. She tolerated well with no complication. Keep dressing clean, dry and intact. No weightbearing left foot, keep left foot elevated. Podiatry will continue to follow, thank you from consultation. (6) Peripheral arterial occlusive disease: HPI Consult Data Date of Consult: 12/08/20 HPI Narrative HPI Narrative: SEBASTIÁN REYES, is a 75 F who presents with infection left foot. She was at wound center yesterday and foot xrays were obtained. It was noted there is gas to the dorsal midfoot lateral aspect. She has redness and swelling. She was started on Clindamycin yesterday. Due to the gas noted on the xrays she was sent to the hospital to be admitted for further management. Patient has been started on Clindamcyin IV. She has a lot of allergies. Patient relates she just recently got back from the [place] and she felt like her foot did well while she was there. She relates the redness and swelling in the foot started on Saturday. She relates the wound on the bottom of the left foot has been doing well. She is afebrile, WBC normal. [facility] Medical History (Updated 12/08/20 @ 23:[address] Nicholas Espino, DP) Anemia Anxiety Atherosclerotic heart disease of [place] coronary artery without angina pectoris Carotid artery disease Carpal tunnel syndrome Charcot's joint of left foot Chest pain Congestive heart failure (CHF) Coronary artery disease CPAP (continuous positive airway pressure) dependence Diabetes DVT (deep venous thrombosis) Essential hypertension GERD (gastroesophageal reflux disease) GI bleed Gout History of blood clots History of blood transfusion History of CVA (cerebrovascular accident) Hyperlipidemia Hypertension Hypothyroidism Hypothyroidism IBS (irritable bowel syndrome) Iron deficiency anemia Kidney stones Migraines Myocardial infarct Neuropathy Non-smoker Obesity Osteoporosis Peripheral arterial occlusive disease Peripheral vascular disease Rheumatoid arthritis Sleep apnea Type 2 diabetes mellitus with diabetic polyneuropathy Ulcer of abdomen wall with fat layer exposed Ulcer of left foot with fat layer exposed Vitamin D deficiency Home Medications pravastatin 40 mg PO QHS 03/10/17 [History Last Taken 12/07/20] allopurinol 100 mg PO DAILY 03/17/20 [History Last Taken 12/08/20] calcium citrate 200 mg PO BID #0 03/17/20 [Rx Last Taken 12/08/20] aspirin 81 mg tablet,delayed release 81 mg PO DAILY 04/05/20 [History Last Taken 12/07/20] cbd 1 dose PO 4X/DAY PRN 04/05/20 [History Last Taken 12/08/20] gwjopf-sklytdaj-gbypglw 24,000-76,000-120,000 unit capsule,delayed rel 1 cap PO BID cap 04/05/20 [History Last Taken 12/08/20] carvedilol 25 mg PO BID 08/17/20 [History Last Taken 12/08/20] levothyroxine 75 mcg PO QHS 08/17/20 [History Last Taken 12/07/20] linaclotide 72 mcg PO DAILY 08/17/20 [History Last Taken 11/21/20] metoclopramide HCl 10 mg PO Q8H PRN 08/17/20 [History Last Taken 12/07/20] svexzsuymagq-yktg-vwmex acid 0.5 tablet PO BID 08/17/20 [History Last Taken 12/08/20] trazodone 100 mg PO QHS PRN 08/17/20 [History Last Taken 12/07/20] venlafaxine 100 mg PO BID 08/17/20 [History Last Taken 12/08/20] insulin lispro 6 - 8 unit SUBCUT BID 08/22/20 [History Last Taken 12/08/20] acetaminophen 1,000 mg PO Q8H PRN PRN #0 tablet 09/09/20 [Rx Last Taken 12/08/20] tizanidine 4 mg PO Q8H PRN PRN #20 tablet 09/09/20 [Rx Last Taken 12/07/20] clopidogrel 75 mg tablet 75 mg PO DAILY #90 tablet 09/16/20 [Rx Last Taken 12/08/20] stllc-iiok-HcUJZ-tqerbt-si-wpc 1 packet PO BIDCM 09/19/20 [History Last Taken 12/08/20] morphine 3 ml PO Q6H PRN PRN 09/19/20 [History Last Taken 12/07/20] nitroglycerin 0.4 mg SL TID PRN PRN 09/19/20 [History Last Taken 1 Week Ago ~12/01/20] polyethylene glycol 3350 17 gm PO DAILY 09/19/20 [History Last Taken 12/08/20] sennosides-docusate sodium 1 tablet PO QHS 09/19/20 [History Last Taken 12/07/20] amlodipine 5 mg tablet 5 mg PO BID #180 tab 11/09/20 [Rx Last Taken 12/08/20] cephalexin 500 mg PO Q8H 12/08/20 [History Last Taken 12/08/20] esomeprazole magnesium 20 mg PO BID 12/08/20 [History Last Taken 12/08/20] fexofenadine [Abimbola] 180 mg PO DAILY 12/08/20 [History Last Taken 12/08/20] guaifenesin [Mucus Relief ER] 600 mg PO BID 12/08/20 [History Last Taken 12/08/20] ibuprofen-diphenhydramine cit [Advil PM] 2 cap PO QHS 12/08/20 [History Last Taken 12/07/20] insulin detemir U-100 [Levemir FlexTouch U-100 Insuln] 34 unit SUBCUT BID 12/08/20 [History Last Taken 12/08/20] isosorbide mononitrate 60 mg PO DAILY 12/08/20 [History Last Taken 12/08/20] isosorbide mononitrate 120 mg PO QHS 12/08/20 [History Last Taken 12/07/20] lisinopril 10 mg PO BID 12/08/20 [History Last Taken 12/08/20] pantoprazole 40 mg PO DAILY 12/08/20 [History Last Taken 12/08/20] Allergy/AdvReac Type Severity Reaction Status Date / Time doxycycline Allergy Severe all over Verified 12/08/20 17:34 body hives and itching atorvastatin calcium Allergy Unknown Verified 12/08/20 17:34 [From Lipitor] bupropion HCl Allergy Unknown Verified 12/08/20 17:34 [From Wellbutrin] mannitol [From Reclast] Allergy joint Verified 12/08/20 17:34 pain, unable to breathe, unable to walk propoxyphene napsylate Allergy Unknown Verified 12/08/20 17:34 [From Darvocet-N 100] Quinolones Allergy Unknown Verified 12/08/20 17:34 Tetanus Vaccines and Toxoid Allergy Chest Verified 12/08/20 17:34 [Tetanus Vaccines & Toxoid] tightness tizanidine Allergy Unknown Verified 12/08/20 17:34 zoledronic acid Allergy joint Verified 12/08/20 17:34 [From Reclast] pain,unable to breathe, unaable to walk pravastatin AdvReac Severe Myalgias Verified 12/08/20 17:34 gemfibrozil AdvReac Intermediate Unknown Verified 12/08/20 17:34 NSAIDS (Non-Steroidal AdvReac Other Verified 12/08/20 17:34 Anti-Inflamma Family History (Reviewed 11/15/20 @ 15:10 by Lars Wahl [employer]CHITECTURAL WOOD MODEL MAKER, ARCHITECTURAL WOOD MODEL MAKER-C) Mother , age 75 Cancer CVA (cerebral vascular accident) CAD (coronary artery disease) Father CAD (coronary artery disease) History of coronary artery bypass graft Sister CAD (coronary artery disease) Multiple sclerosis Other Anxiety Bleeding disorder Depression Diabetes Heart disease High cholesterol Hypertension Surgical History (Updated 12/08/20 @ 21:59 by Olivia Maldonado) History of appendectomy History of cholecystectomy History of coronary artery bypass graft History of coronary artery stent placement History of excision of lesion History of gastric bypass History of gastric bypass History of left heart catheterization History of ventral hernia repair Hx of CABG Hx of ventral hernia repair Stented coronary artery (12/03/18) Social History (Reviewed 11/15/20 @ 15:10 by Lars Wahl ARCHITECTURAL WOOD MODEL MAKER, ARCHITECTURAL WOOD MODEL MAKER-C) Smoking Status: Never smoker alcohol intake: never substance use type: does not use caffeine: Yes Type: coffee what type of physical activity do you participate in: none seatbelt use: sometimes do you feel safe at home: Yes additional social history: DOES NOT TAKE ASPIRIN DOES TAKE IBUPROFEN NEEDED ROS Constitutional Constitutional: Denies fever(s) or malaise Gastrointestinal Gastrointestinal: Denies nausea or vomiting Physical Exam Const alert, oriented x3 and no apparent distress Extremity no calf tenderness Extremity Narrative: Left foot: there is noted to be visible abscess to the dorsal lateral midfoot with fluctuance present, there is surrounding cellulitis and edema to the site, there is no streaking, there is chronic stable noninfected appearing ulceration down to fascia layer plantar midfoot with no cardinal signs of infection to this ulcer site with no drainage. There is no evidence of acute ischemia to the left foot. There is chronic charcot deformity to the left foot. Peripheral neuropathy to the foot - chronic. Lab / Micro Data Result Diagrams: 12/08/20 19:46 12/08/20 19:46 Labs: Laboratory Results - last 24 hr 12/08/20 19:46: WBC 8.1, RBC 3.93 L, Hgb 10.7 L, Hct 34.1 L, MCV 86.8, MCH 27.2, MCHC 31.4 L, RDW Std Deviation 48.4 H, RDW Coeff of Marco 15.1 H, Plt Count 263, MPV 8.6, Immature Gran % (Auto) 0.500, Neut % (Auto) 73.0 H, Lymph % (Auto) 17.6 L, [place] % (Auto) 6.3, Eos % (Auto) 2.5, Baso % (Auto) 0.1, Absolute Neuts (auto) 5.9, Absolute Lymphs (auto) 1.42, Nucleated RBC % 0 12/08/20 19:46: Sodium 130 L, Potassium 5.9 H, Chloride 104, Carbon Dioxide 18.0 L, Anion Gap 8, BUN 50 H, Creatinine 1.29 H, Estim Creat Clear Calc 33.54, Est GFR (MDRD) Af Amer 52 L, Est GFR (MDRD) Non-Af 43 L, BUN/Creatinine Ratio 38.8 H, Glucose 255 H, Calcium 8.4 L 12/08/20 19:46: Lactic Acid 0.9
--- NOTE | 2020-12-08 23:29 | PCM.RX.CS ---
Consult Pharmacy has been consulted to manage selected antiobiotic: Vancomycin Type of Consult: New start Suspected Infection: Skin/Soft tissue Labs: Sodium 130 mmol/L (136-145) L 12/08/20 19:46 Potassium 5.9 mmol/L (3.5-5.1) H 12/08/20 19:46 Chloride 104 mmol/L (98-107) 12/08/20 19:46 Carbon Dioxide 18.0 mmol/L (21.0-32.0) L 12/08/20 19:46 Anion Gap 8 (5-15) 12/08/20 19:46 BUN 50 mg/dL (7-18) H 12/08/20 19:46 Creatinine 1.29 mg/dL (0.55-1.02) H 12/08/20 19:46 Est GFR (MDRD) Af Amer 52 mL/min (>60) L 12/08/20 19:46 Est GFR (MDRD) Non-Af 43 mL/min (>60) L 12/08/20 19:46 BUN/Creatinine Ratio 38.8 RATIO (10-20) H 12/08/20 19:46 Glucose 255 mg/dL (74-106) H 12/08/20 19:46 Weight used for dosin.3 kg Estimated Creatinine Clearance: 39.8 Goal Trough: 15-20 mcg/mL Pharmacy Plan for Drug Dosing: Pharmacy Service will continue to monitor and adjust dosing as required. Medications Vancomycin HCl 1,250 mg/ (Sodium Chloride) 275 mls @ 167 mls/hr IV Q24H SHAHBAZ Last Admin: 08/21/20 21:51 Dose: Infused Documented by: Vancomycin HCl 1,250 mg/ (Sodium Chloride) 275 mls @ 167 mls/hr IV Q24H SHAHBAZ Discontinued Medications Vancomycin HCl 1,250 mg/ (Sodium Chloride) 275 mls @ 167 mls/hr IV X1 ONE Stop: 12/08/20 21:02 Last Admin: 12/08/20 21:59 Dose: 167 mls/hr Documented by: Follow-Up Labs: Trough Vancomycin Labs to be done on [date and time ordered]: 12/10 @ 0054
[2020-12-08 23:35] LABS: Bedside Glucose 224 mg/dL (70-110)
[2020-12-08] MEDS: Sodium Polystyrene Sulfonate 15 GM/60 ML UDC 30 GM PO (23:36)
[2020-12-08] MEDS: 0.9% Normal Saline 1,000 ML 150 ML IV (23:42)
[2020-12-08] MEDS: CLARIFY ORDER 1 EACH NOTE (23:44)
[2020-12-09] MEDS: traZODone 100 MG Tablet PO (00:27)
[2020-12-09] MEDS: Morphine 2 MG/ML Syringe IV (00:27)
[2020-12-09 01:21] LABS: M R Staph aureus DNA By PCR Negative (Negative); Probe Check PASS; Specimen Processing Control PASS; Staph aureus DNA By PCR NEGATIVE (Negative)
[2020-12-09] MEDS: tiZANidine HCl 2 MG Tablet 4 MG PO ×3 (02:03→21:54)
[2020-12-09 03:43] VITALS: BP 128/46; PULSE 66; RESP 16; TEMP 36.7; O2SAT 98
[2020-12-09] MEDS: 0.9% Normal Saline 1,000 ML 150 ML IV ×3 (06:33→21:47)
[2020-12-09] MEDS: Insulin Lispro 100 UNIT/ML INSULN.PEN SC ×3 (06:39→16:01)
[2020-12-09 07:38] LABS: Absolute Lymphocyte Count 1.68 X10^3/uL (0.83-4.51); Absolute Neutrophil Count 3.7 X10^3/uL (2.0-7.7); Basophil# 0.02 X10^3/uL; Basophil% 0.3 % (0-1); Eosinophils% 4.7 % (0-5); Hematocrit 32.2 % (37-47); Hemoglobin 10.4 g/dL (12.0-15.0); Lymphocyte # 1.68 X10^3/ul (0.83-4.51); Lymphocyte % 26.5 % (19-41); Mean Corp Hgb Conc 32.3 g/dL (32-36); Mean Corpuscular Hgb 27.2 pg (27.0-32.0); Mean Corpuscular Volume 84.3 fL (81-99); Mean Platelet Vol. 8.6 fl (6.2-12.0); Monocyte# 0.64 X10^3/uL; Monocyte% 10.1 % (0-10); NRBC Flagged by Analyzer 0 % (0-5); Neutrophil # 3.68 X10^3/uL (2.7-7.7); Neutrophil % 58.1 % (47-70); Platelet Count 215 K/mm3 (150-450); RBC Distribution Width CV 15.3 % (11.6-14.6); RBC Distribution Width SD 47.1 fl (35.1-43.9); Red Blood Count 3.82 M/mm3 (4.2-5.4); White Blood Count 6.3 K/mm3 (4.4-11.0)
[2020-12-09 07:48] LABS: Anion Gap 6 (5-15); BUN 37 mg/dL (7-18); BUN/Creat Ratio 34.6 RATIO (10-20); Calcium,Total 7.9 mg/dL (8.5-10.1); Chloride 110 mmol/L (98-107); Creatinine, Serum 1.07 mg/dL (0.55-1.02); EST Glomerular Filtration Rate 53 mL/min (>60); Est Glom Filt Rate - Afr Amer 65 mL/min (>60); Estimated Creatinine Clearance 40.44 ml/min; Glucose 176 mg/dL (74-106); Potassium 4.5 mmol/L (3.5-5.1); Sodium Level 137 mmol/L (136-145)
--- NOTE | 2020-12-09 09:11 | PN_ITS ---
Subjective Subjective Patient was seen this morning for follow up on left foot. She relates she is doing well, resting in bed, no complaints. No fever, chills, nausea or vomiting. Objective Data Objective Data Vital Signs: Vital Signs Temp Pulse Resp BP Pulse Ox 98.0 F 66 16 128/46 H 98 12/09/20 03:43 12/09/20 03:43 12/09/20 03:43 12/09/20 03:43 12/09/20 03:43 Oxygen Delivery Method Room Air Weight: 80.3 kg Body Mass Index (BMI) 30.4 Intake & Output: Intake and Output for Last 24 Hours 12/07/20 12/08/20 12/09/20 23:59 23:59 23:59 Intake Total 829 / 829 1808 / 1808 Output Total 220 / 220 900 / 900 Balance 609 / 609 908 / 908 Lab / Micro Data Result Diagrams: 12/09/20 07:25 12/09/20 07:25 Labs: Laboratory Results - last 24 hr 12/08/20 19:46: WBC 8.1, RBC 3.93 L, Hgb 10.7 L, Hct 34.1 L, MCV 86.8, MCH 27.2, MCHC 31.4 L, RDW Std Deviation 48.4 H, RDW Coeff of Marco 15.1 H, Plt Count 263, MPV 8.6, Immature Gran % (Auto) 0.500, Neut % (Auto) 73.0 H, Lymph % (Auto) 17.6 L, [place] % (Auto) 6.3, Eos % (Auto) 2.5, Baso % (Auto) 0.1, Absolute Neuts (auto) 5.9, Absolute Lymphs (auto) 1.42, Nucleated RBC % 0 12/08/20 19:46: Sodium 130 L, Potassium 5.9 H, Chloride 104, Carbon Dioxide 18.0 L, Anion Gap 8, BUN 50 H, Creatinine 1.29 H, Estim Creat Clear Calc 33.54, Est GFR (MDRD) Af Amer 52 L, Est GFR (MDRD) Non-Af 43 L, BUN/Creatinine Ratio 38.8 H , Glucose 255 H, Calcium 8.4 L 12/08/20 19:46: Lactic Acid 0.9 12/08/20 23:05: S.aureus Protein A PCR NEGATIVE, MRSA (PCR) Negative 12/08/20 23:27: POC Glucose 224 H 12/09/20 07:25: WBC 6.3, RBC 3.82 L, Hgb 10.4 L, Hct 32.2 L, MCV 84.3, MCH 27.2, MCHC 32.3, RDW Std Deviation 47.1 H, RDW Coeff of Marco 15.3 H, Plt Count 215, MPV 8.6, Immature Gran % (Auto) 0.300, Neut % (Auto) 58.1, Lymph % (Auto) 26.5, [place] % (Auto) 10.1 H, Eos % (Auto) 4.7, Baso % (Auto) 0.3, Absolute Neuts (auto) 3.7, Absolute Lymphs (auto) 1.68, Nucleated RBC % 0 12/09/20 07:25: Sodium 137, Potassium 4.5, Chloride 110 H, Carbon Dioxide 21.0, Anion Gap 6, BUN 37 H, Creatinine 1.07 H, Estim Creat Clear Calc 40.44, Est GFR (MDRD) Af Amer 65, Est GFR (MDRD) Non-Af 53 L, BUN/Creatinine Ratio 34.6 H, Glucose 176 H, Calcium 7.9 L Physical Exam Const alert, oriented x3 and no apparent distress Extremity Extremity Narrative: Left foot: plantar foot ulceration with no evidence of infection, wound is down to bone, I+D debridement site dorsal lateral foot much improved - no purulence, no necrosis, no maloder, no fluctuance, no crepitus, and cellulitis is much improved. No open lesions on the right foot. No evidence of acute ischemia bilateral. No new areas of break down bilateral foot or ankle. No calf pain bilateral or evidence of dvt. 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 Significant improvement noted to the left foot. The patient has been started on IV clindamycin. Patient is afebrile and WBC is normal. Culture has been obtained from left foot and results pending. Wound care: Dakin's wet to dry saumya packing to dorsal lateral foot, and dakin's wet to dry gauze plantar ulcer - change BID. Keep dressing clean, dry and intact otherwise. No weightbearing left foot, keep left foot elevated. Podiatry will continue to follow, thank you from consultation. (6) Peripheral arterial occlusive disease:
--- NOTE | 2020-12-09 09:18 | NURSING ---
wound photo: left foot
--- NOTE | 2020-12-09 09:19 | NURSING ---
wound photo: left plantar foot
--- NOTE | 2020-12-09 09:38 | PCM.PN.HOSP ---
Documented by User: Kasandra Perez NP, CHIEF OF PEDIATRIC UROLOGY-C 12/09/20 09:51 Subjective Subjective Patient seen and examined. Denies current complaints. Denies fever, chills. No other symptoms or complaints. Objective Data Objective Data Vital Signs: Vital Signs Temp Pulse Resp BP Pulse Ox 98.0 F 66 16 128/46 H 98 12/09/20 03:43 12/09/20 03:43 12/09/20 03:43 12/09/20 03:43 12/09/20 03:43 Oxygen Delivery Method Room Air Weight: 177 lb 0.499 oz Body Mass Index (BMI) 30.4 Intake & Output: Intake and Output for Last 24 Hours 12/07/20 12/08/20 12/09/20 23:59 23:59 23:59 Intake Total 829 / 829 1808 / 1808 Output Total 220 / 220 900 / 900 Balance 609 / 609 908 / 908 Lab / Micro Data Result Diagrams: 12/09/20 07:25 12/09/20 07:25 Labs: Laboratory Results - last 24 hr 12/08/20 19:46: WBC 8.1, RBC 3.93 L, Hgb 10.7 L, Hct 34.1 L, MCV 86.8, MCH 27.2, MCHC 31.4 L, RDW Std Deviation 48.4 H, RDW Coeff of Marco 15.1 H, Plt Count 263, MPV 8.6, Immature Gran % (Auto) 0.500, Neut % (Auto) 73.0 H, Lymph % (Auto) 17.6 L, [place] % (Auto) 6.3, Eos % (Auto) 2.5, Baso % (Auto) 0.1, Absolute Neuts (auto) 5.9, Absolute Lymphs (auto) 1.42, Nucleated RBC % 0 12/08/20 19:46: Sodium 130 L, Potassium 5.9 H, Chloride 104, Carbon Dioxide 18.0 L, Anion Gap 8, BUN 50 H, Creatinine 1.29 H, Estim Creat Clear Calc 33.54, Est GFR (MDRD) Af Amer 52 L, Est GFR (MDRD) Non-Af 43 L, BUN/Creatinine Ratio 38.8 H, Glucose 255 H, Calcium 8.4 L 12/08/20 19:46: Lactic Acid 0.9 12/08/20 23:05: S.aureus Protein A PCR NEGATIVE, MRSA (PCR) Negative 12/08/20 23:27: POC Glucose 224 H 12/09/20 07:25: WBC 6.3, RBC 3.82 L, Hgb 10.4 L, Hct 32.2 L, MCV 84.3, MCH 27.2, MCHC 32.3, RDW Std Deviation 47.1 H, RDW Coeff of Marco 15.3 H, Plt Count 215, MPV 8.6, Immature Gran % (Auto) 0.300, Neut % (Auto) 58.1, Lymph % (Auto) 26.5, [place] % (Auto) 10.1 H, Eos % (Auto) 4.7, Baso % (Auto) 0.3, Absolute Neuts (auto) 3.7, Absolute Lymphs (auto) 1.68, Nucleated RBC % 0 12/09/20 07:25: Sodium 137, Potassium 4.5, Chloride 110 H, Carbon Dioxide 21.0, Anion Gap 6, BUN 37 H, Creatinine 1.07 H, Estim Creat Clear Calc 40.44, Est GFR (MDRD) Af Amer 65, Est GFR (MDRD) Non-Af 53 L, BUN/Creatinine Ratio 34.6 H, Glucose 176 H, Calcium 7.9 L Physical Exam Const alert, oriented x3 and no apparent distress Orientation / Consciousness: awake, oriented to person, oriented to place and oriented to time HEENT normocephalic and moist oral mucous membranes Eyes PERRL, EOMs intact bilaterally and conjunctivae normal Neck no lymphadenopathy Resp normal respiratory effort and clear to auscultation bilaterally Cardio regular rate, regular rhythm and no murmurs Peripheral Pulses: pulses 2+ throughout GI normal to inspection, nondistended, normoactive bowel sounds, non-tender and non-distended Extremity normal to inspection Skin no rashes or lesions noted Skin Narrative: Left foot dressing intact. 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 Acute, recurrent infected diabetic left foot ulcer, underlying charcot deformity-podiatry consulted. Bedside I&D completed. Cultures pending. On IV clindamycin and IV vanc. Prior cultures grew strep agalactiae, Staphylococcus caprae, Enterococcus and anaerobic cocci. Wound RN consult. Continue dressing changes as ordered. PT/OT. 1. CAD with history of CABG and stents- Prior heart cath November 2018 which demonstrated mid RCA lesion 65% stenosis, FFR was done with no PCI. Stress echo June 2019 negative for ischemia. Continue medical management including aspirin, Plavix, carvedilol, statin, isosorbide. 3. Chronic kidney disease stage IIIa-at baseline, trend BMP. 4. Type 2 diabetes mellitus- Continue home insulin regimen. Accu-Cheks with sliding scale insulin. 5. Hypertension-stable, continue Norvasc, Coreg, lisinopril, isosorbide. 6. GERD-continue PPI. 7. Hypothyroidism-continue Synthroid. 8. PVD-continue aspirin, Plavix, statin. 9. Chronic microcytic anemia/iron deficiency anemia-stable. 10. Anxiety-uses CBD oil as needed. 11. Chronic severe malnutrition-dietitian consult. DVT prophylaxis- Lovenox sc This patient was seen by Kasandra Perez NP-C under the supervision of Dr. Becker. Documented by User: Dr. Jeanie Becker DO 12/09/20 17:07 Subjective Subjective Patient was seen in conjunction with Angi Perez NP. The following is representation my independent history and exam. See below for any addendum to the above document. Patient states that she is feeling well. Had debridement done this morning. Request to be placed back on her home morphine rather than IV morphine. Objective Data Lab / Micro Data Result Diagrams: 12/09/20 07:25 12/09/20 07:25 Physical Exam Const alert, oriented x3 and no apparent distress Constitutional Narrative: Obese, older white female lying in bed, eating breakfast and watching television, appears comfortable, nontoxic Exam Limitations: no limitations HEENT head/scalp atraumatic Head and Scalp: normocephalic Resp normal respiratory effort, no retractions, no use of accessory muscles and clear to auscultation bilaterally Cardio regular rate, regular rhythm, S1 normal heart sound, S2 normal heart sound, no murmurs, no rub, no gallops, no clicks and no JVD GI normal to inspection, nondistended, normoactive bowel sounds, soft to palpation, non-tender and non-distended Extremity Extremity Narrative: Slight edema, no cyanosis or clubbing Skin no rashes or lesions noted, No no wounds, skin turgor normal, no jaundice, no petechiae and no mottling Skin Narrative: Left lower extremity with dressing in place, right lower extremity with all toes amputated no wounds noted Neuro oriented x3, CN's II-XII intact bilaterally, moves all extremities and no focal motor deficits Neuro Narrative: Bilateral lower extremity neuropathy Sensorium / Orientation: awake and alert Speech: speech normal Psych affect normal Psych Narrative: Very pleasant and cooperative Assessment & Plan Assessment/Plan (1) Abscess of left foot: (2) Type 2 diabetes mellitus with diabetic polyneuropathy: PLAN: Assessment: Acute infection of diabetic foot ulcer-recurrent Charcot foot deformity Chronic microcytic anemia secondary to CKD-stable CKD stage IIIb DM-2 CAD Hypertension GERD Hyperlipidemia GERD Hypothyroidism Peripheral vascular disease Anxiety Chronic severe malnutrition Plan: -I&D performed today -Cultures pending--> blood and wound -Continue antibiotics -Continue wound care -Blood sugars are somewhat high today we will continue to monitor and if remain elevated address with changes in her insulin regimen -Restart home morphine oral -Continue IV morphine -Continue home blood pressure medications -Patient states her lisinopril was recently increased -Patient had an A1c in August 2020 and it was 7.1 -Renal function is better than it typically is at baseline -MRSA PCR is negative -Appreciate podiatry input Charges/Coding Visit Charges Inpatient E&M: 42367 Subs Hosp L2
[2020-12-09] MEDS: Clopidogrel Bisulfate 75 MG Tablet PO (09:48)
[2020-12-09] MEDS: Calcium (Elemental) 500 MG Tablet 250 MG PO ×2 (09:48→21:47)
[2020-12-09] MEDS: amLODIPine 5 MG Tablet PO ×2 (09:48→21:47)
[2020-12-09] MEDS: Aspirin E.C. 81 MG Tablet PO (09:49)
[2020-12-09] MEDS: guaiFENesin 600 MG Tablet PO ×2 (09:49→21:47)
[2020-12-09] MEDS: Loratadine 10 MG Tablet PO (09:50)
[2020-12-09] MEDS: Multivitamins,Ther W-Minerals Tablet 1 TABLET PO (09:50)
[2020-12-09] MEDS: Polyethylene Glycol 3350 17 GM PACKET PO (09:50)
[2020-12-09] MEDS: Isosorbide Mononitrate 60 MG Tablet PO (09:50)
[2020-12-09] MEDS: Carvedilol 25 MG Tablet PO ×2 (09:50→21:48)
[2020-12-09] MEDS: Enoxaparin 40 MG/0.4 ML Syringe SC (09:51)
[2020-12-09] MEDS: Creon 24,000 unit DR Capsule 1 CAP PO ×2 (09:51→21:48)
[2020-12-09] MEDS: Pantoprazole Sodium 20 MG Tablet PO ×2 (09:52→21:47)
[2020-12-09] MEDS: Allopurinol 100 MG Tablet PO (09:52)
[2020-12-09 09:59] VITALS: BP 152/66; PULSE 73; PULSE 80; RESP 18; TEMP 36.7; O2SAT 96
[2020-12-09] MEDS: Acetaminophen 500 MG Tablet 1000 MG PO ×2 (10:22→17:56)
[2020-12-09] MEDS: Lisinopril 10 MG Tablet PO ×2 (10:23→21:47)
--- NOTE | 2020-12-09 10:30 | RAD_ITS ---
STUDY: X-RAY - LEFT FOOT CLINICAL: Female, 75 years old. Status post debridement. TECHNIQUE: 3 view(s) of the foot. COMPARISON: 12/07/2020. FINDINGS: Generalized osteopenia. Pes planus deformity with marked Charcot changes of the midfoot and the tarsometatarsal articulations, unchanged. Marked arthrosis of the MTP and IP joints with hammertoe deformities. Soft tissue ulceration on the plantar surface of foot below the mid foot. Probable soft tissue gas projected over the base of the fifth metatarsal. Vascular calcifications. RAD/Foot min 3 Views IMPRESSION: Stable foot with no acute superimposed finding. Electronically Signed: Milton Menard MD at 11:22 EDT , Service support ,
[2020-12-09] MEDS: DAKIN'S SOL HALF STRENGTH (=0.25%) 1 APPLIC TOPICAL ×2 (10:37→21:49)
--- NOTE | 2020-12-09 12:10 | CASEMGMT ---
Social Work Note Per dean of admissions questions, pt has completed HCPOA and LW and provided documents to [facility]. Pt had told RN that her was HCPOA. SW reviewed chart. Both HCPOA and LW are on file but documents state that pt's DIL Madison Arnholt is HCPOA. SW in to speak with pt. SW introduced self and role at [facility]. SW informed pt that HCPOA and LW are on file but HCPOA document is stating DIL in HCPOA. Pt confirms this, states that she knew it was either her DIL or . Pt confirms that agent for HCPOA is DIL Madison Arnholt. SW printed off documents and placed on pt's chart. Shabnam Merino YARD JACKER, SYNOPTIC METEOROLOGIST
[2020-12-09 12:11] LABS: Bedside Glucose 233 mg/dL (70-110)
[2020-12-09] MEDS: 0.9% Saline Lock 10 ML Syringe IV ×2 (13:53→13:56)
--- NOTE | 2020-12-09 13:56 | CASEMGMT ---
GRICELDA REED Assessment: RN CM to room to meet with patient for initial transition planning/care coordination assessment. GRICELDA REED introduced self and role at [facility]. Pt voices understanding and consents to assessment at this time. Pt sitting up in recliner chair in room in no distress at this time. @ bedside. Pt is A/O at this time and answers all questions appropriately. Care providers, pharmacy, and demographics verified/updated at this time. Admitting Dx: Diabetic Foot Infection PCP: Dr Johnson Specialists: Felicita, pain mgmt; Mayela, pulbar; Fascione at wound center [facility]--goes Q Sat Pt is active w/Palliative Care and they were notified pt is admitted to [facility]. Preferred [facility]acy: [facility] Insurance: [facility], [employer] Benefits Prescription Benefit: yes LW/HPOA: Pt has LW and DPOA on file, DPOA is daughter in law Madison Barrera LNOK: Logan Seay, ; Madison Waerfox DASILVA Living Arrangements: Pt lives with and dragan Angel in a 2 story house with no steps to enter. Pt denies concerns at home. Pt does her own daily dressing changes and assists as needed. Transportation: provides transportation DME/HHC/SNF: Pt states she has a cane, walker, knee scooter, BSC, shower seat, w/c, electric scooter, BP cuff, pulse ox, and functioning glucometer at home. She has had a SNF stay at [facility] and [facility]. Pt is active w/[facility] HHC: SN--they see pt Q Saturday and Saturday. [facility] aware pt has been admitted to [facility]. Discussed discharge planning. Pt states, I'm going home and states does not wish to go to a SNF. Pt states no concerns with going home at time of dc. She states that she and her complete the wound care. Pt states no concerns/needs at this time. CM to follow. Advised pt/ to ask CM if any question/concerns/needs arise, voices understanding. Plan: Home with family support and MATTHEW w/[facility] HHC: SN. Wound cx's pending. Follow for possible need of IV atb's @ discharge. Zion KOROMA RN, CM
[2020-12-09 13:57] VITALS: BP 150/53; PULSE 67; RESP 18; TEMP 37; O2SAT 97
[2020-12-09 14:39] VITALS: O2SAT 97
[2020-12-09 15:45] VITALS: PULSE 80
[2020-12-09 16:06] LABS: Bedside Glucose 230 mg/dL (70-110)
[2020-12-09 19:50] VITALS: BP 168/65; PULSE 75; RESP 18; TEMP 37.1; O2SAT 99
[2020-12-09] MEDS: morphine (oral solution) 10MG/0.5ML Syringe 6 MG PO (20:04)
[2020-12-09] MEDS: Levothyroxine 75 MCG Tablet PO (21:47)
[2020-12-09] MEDS: Pravastatin 40 MG Tablet PO (21:47)
[2020-12-09 22:26] LABS: Bedside Glucose 103 mg/dL (70-110)
[2020-12-10] MEDS: Acetaminophen 500 MG Tablet 1000 MG PO ×3 (01:27→20:00)
[2020-12-10] MEDS: traZODone 100 MG Tablet PO (01:27)
[2020-12-10] MEDS: morphine (oral solution) 10MG/0.5ML Syringe 6 MG PO ×3 (02:05→22:14)
[2020-12-10 02:06] VITALS: BP 121/47; PULSE 67; RESP 18; TEMP 36.6; O2SAT 99
[2020-12-10] MEDS: 0.9% Normal Saline 1,000 ML 150 ML IV ×4 (06:43→17:45)
[2020-12-10 06:55] LABS: Bedside Glucose 70 mg/dL (70-110)
[2020-12-10 07:31] LABS: Absolute Lymphocyte Count 2.41 X10^3/uL (0.83-4.51); Absolute Neutrophil Count 2.9 X10^3/uL (2.0-7.7); Basophil# 0.02 X10^3/uL; Basophil% 0.3 % (0-1); Eosinophil# 0.31 X10^3/uL; Eosinophils% 5.1 % (0-5); Hematocrit 32.2 % (37-47); Lymphocyte # 2.41 X10^3/ul (0.83-4.51); Lymphocyte % 39.6 % (19-41); Mean Corp Hgb Conc 31.1 g/dL (32-36); Mean Corpuscular Hgb 26.9 pg (27.0-32.0); Mean Corpuscular Volume 86.6 fL (81-99); Mean Platelet Vol. 8.7 fl (6.2-12.0); Monocyte# 0.47 X10^3/uL; Monocyte% 7.7 % (0-10); NRBC Flagged by Analyzer 0 % (0-5); Neutrophil # 2.85 X10^3/uL (2.7-7.7); Platelet Count 254 K/mm3 (150-450); RBC Distribution Width CV 15.2 % (11.6-14.6); RBC Distribution Width SD 48.4 fl (35.1-43.9); Red Blood Count 3.72 M/mm3 (4.2-5.4); White Blood Count 6.1 K/mm3 (4.4-11.0)
[2020-12-10 07:59] LABS: Anion Gap 7 (5-15); BUN 29 mg/dL (7-18); BUN/Creat Ratio 28.4 RATIO (10-20); Calcium,Total 8.1 mg/dL (8.5-10.1); Chloride 116 mmol/L (98-107); Creatinine, Serum 1.02 mg/dL (0.55-1.02); EST Glomerular Filtration Rate 56 mL/min (>60); Est Glom Filt Rate - Afr Amer 68 mL/min (>60); Estimated Creatinine Clearance 42.42 ml/min; Glucose 105 mg/dL (74-106); Potassium 4.3 mmol/L (3.5-5.1); Sodium Level 144 mmol/L (136-145)
[2020-12-10 08:00] VITALS: BP 155/60; PULSE 68; RESP 18; TEMP 37; O2SAT 99
--- NOTE | 2020-12-10 08:39 | PCM.PROGNOTE ---
Subjective Subjective Patient was seen this morning for follow up on left foot. She relates she had a lot of pain to the left foot overnight, may be due to her neuropathy. Otherwise she is resting comfortably in bed with no overnight events. No fever, chills, nausea or vomiting. Objective Data Objective Data Vital Signs: Vital Signs Temp Pulse Resp BP Pulse Ox 98 F 67 18 121/47 H 99 12/10/20 02:06 12/10/20 02:06 12/10/20 02:06 12/10/20 02:06 12/10/20 02:06 Oxygen Delivery Method Room Air Weight: 80.3 kg Body Mass Index (BMI) 30.4 Intake & Output: Intake and Output for Last 24 Hours 12/08/20 12/09/20 12/10/20 23:59 23:59 23:59 Intake Total 829 / 829 4191.0 / 4191.0 2053 / 2053 Output Total 220 / 220 1700 / 1700 2700 / 2700 Balance 609 / 609 2491.0 / 2491.0 -646 / -646 Lab / Micro Data Result Diagrams: 12/10/20 07:04 12/10/20 07:04 Labs: Laboratory Results - last 24 hr 12/09/20 12:04: POC Glucose 233 H 12/09/20 15:51: POC Glucose 230 H 12/09/20 21:38: POC Glucose 103 12/10/20 06:48: POC Glucose 70 12/10/20 07:04: WBC 6.1, RBC 3.72 L, Hgb 10.0 L, Hct 32.2 L, MCV 86.6, MCH 26.9 L, MCHC 31.1 L, RDW Std Deviation 48.4 H, RDW Coeff of Marco 15.2 H, Plt Count 254, MPV 8.7, Immature Gran % (Auto) 0.300, Neut % (Auto) 47.0, Lymph % (Auto) 39.6, [place] % (Auto) 7.7, Eos % (Auto) 5.1 H, Baso % (Auto) 0.3, Absolute Neuts (auto) 2.9, Absolute Lymphs (auto) 2.41, Nucleated RBC % 0 12/10/20 07:04: Sodium 144, Potassium 4.3, Chloride 116 H, Carbon Dioxide 21.0, Anion Gap 7, BUN 29 H, Creatinine 1.02, Estim Creat Clear Calc 42.42, Est GFR (MDRD) Af Amer 68, Est GFR (MDRD) Non-Af 56 L, BUN/Creatinine Ratio 28.4 H, Glucose 105, Calcium 8.1 L Micro: Microbiology 12/08/20 23:05 Wound - Left Foot Gram Stain - Final Radiography Diagnostic Testing: Radiology Impression Foot X-Ray 12/09/20 10:30 IMPRESSION: Stable foot with no acute superimposed finding. Electronically Signed: Milton Menard MD at 11:22 EDT , Service support , Physical Exam Const alert, oriented x3 and no apparent distress Extremity no calf tenderness Extremity Narrative: Left foot: plantar foot ulceration with no evidence of infection, wound is down to bone, I+D debridement site dorsal lateral foot much improved - no purulence, no necrosis, no maloder, no fluctuance, no crepitus, and cellulitis is much improved and almost resolved. No evidence of acute ischemia left foot. No new areas of break down to the left foot or ankle. No calf pain bilateral or evidence of dvt. 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 Left foot much improved. The patient has been started on IV clindamycin and vancomycin. Patient is afebrile and WBC is normal. Culture has been obtained from left foot and results pending. Once home antibiotics determined ok for discharge. Wound care: Dakin's wet to dry gauze packing to dorsal lateral foot, and dakin's wet to dry gauze plantar ulcer - change BID. Keep dressing clean, dry and intact otherwise. No weightbearing left foot, keep left foot elevated. Podiatry will continue to follow. (6) Peripheral arterial occlusive disease:
[2020-12-10] MEDS: Multivitamins,Ther W-Minerals Tablet 1 TABLET PO (09:33)
[2020-12-10] MEDS: Pantoprazole Sodium 20 MG Tablet PO ×2 (09:33→21:55)
[2020-12-10] MEDS: Lisinopril 10 MG Tablet PO ×2 (09:34→21:55)
[2020-12-10] MEDS: Calcium (Elemental) 500 MG Tablet 250 MG PO ×2 (09:35→21:56)
[2020-12-10] MEDS: amLODIPine 5 MG Tablet PO ×2 (09:35→21:55)
[2020-12-10] MEDS: guaiFENesin 600 MG Tablet PO (09:35)
[2020-12-10] MEDS: Polyethylene Glycol 3350 17 GM PACKET PO (09:35)
[2020-12-10] MEDS: Carvedilol 25 MG Tablet PO ×2 (09:36→21:55)
[2020-12-10] MEDS: Aspirin E.C. 81 MG Tablet PO (09:38)
[2020-12-10] MEDS: Creon 24,000 unit DR Capsule 1 CAP PO ×2 (09:38→21:55)
[2020-12-10] MEDS: DAKIN'S SOL HALF STRENGTH (=0.25%) 1 APPLIC TOPICAL ×2 (09:39→21:57)
[2020-12-10] MEDS: Allopurinol 100 MG Tablet PO (09:41)
[2020-12-10] MEDS: Enoxaparin 40 MG/0.4 ML Syringe SC (09:46)
[2020-12-10] MEDS: Isosorbide Mononitrate 60 MG Tablet PO (09:47)
[2020-12-10] MEDS: Loratadine 10 MG Tablet PO (09:50)
--- NOTE | 2020-12-10 10:51 | PN.HOSP_ITS ---
Documented by User: Kasandra Perez NP, [employer]ESSING SUPERVISOR-C 12/10/20 10:56 Subjective Subjective Patient seen and examined. Reports she did not sleep well overnight due to pain related to neuropathy. Denies other symptoms or complaints. Objective Data Objective Data Vital Signs: Vital Signs Temp Pulse Resp BP Pulse Ox 98.6 F 68 18 155/60 H 99 12/10/20 08:00 12/10/20 08:00 12/10/20 08:00 12/10/20 08:00 12/10/20 08:00 Oxygen Delivery Method Room Air Weight: 177 lb 0.499 oz Body Mass Index (BMI) 30.4 Intake & Output: Intake and Output for Last 24 Hours 12/08/20 12/09/20 12/10/20 23:59 23:59 23:59 Intake Total 829 / 829 4191.0 / 4191.0 2053 / 2053 Output Total 220 / 220 1700 / 1700 2700 / 2700 Balance 609 / 609 2491.0 / 2491.0 -646 / -646 Lab / Micro Data Result Diagrams: 12/10/20 07:04 12/10/20 07:04 Labs: Laboratory Results - last 24 hr 12/09/20 12:04: POC Glucose 233 H 12/09/20 15:51: POC Glucose 230 H 12/09/20 21:38: POC Glucose 103 12/10/20 06:48: POC Glucose 70 12/10/20 07:04: WBC 6.1, RBC 3.72 L, Hgb 10.0 L, Hct 32.2 L, MCV 86.6, MCH 26.9 L, MCHC 31.1 L, RDW Std Deviation 48.4 H, RDW Coeff of Marco 15.2 H, Plt Count 254, MPV 8.7, Immature Gran % (Auto) 0.300, Neut % (Auto) 47.0, Lymph % (Auto) 39.6, [place] % (Auto) 7.7, Eos % (Auto) 5.1 H, Baso % (Auto) 0.3, Absolute Neuts (auto) 2.9, Absolute Lymphs (auto) 2.41, Nucleated RBC % 0 12/10/20 07:04: Sodium 144, Potassium 4.3, Chloride 116 H, Carbon Dioxide 21.0, Anion Gap 7, BUN 29 H, Creatinine 1.02, Estim Creat Clear Calc 42.42, Est GFR (MDRD) Af Amer 68, Est GFR (MDRD) Non-Af 56 L, BUN/Creatinine Ratio 28.4 H, Glucose 105, Calcium 8.1 L Micro: Microbiology 12/08/20 23:05 Wound - Left Foot Gram Stain - Final 12/08/20 23:05 Wound - Left Foot Wound Culture - Preliminary Gram negative mitch Radiography Diagnostic Testing: Radiology Impression Foot X-Ray 12/09/20 10:30 IMPRESSION: Stable foot with no acute superimposed finding. Electronically Signed: Milton Menard MD at 11:22 EDT , Service support , Physical Exam Const alert, oriented x3 and no apparent distress Orientation / Consciousness: awake, oriented to person, oriented to place and oriented to time HEENT normocephalic and moist oral mucous membranes Eyes PERRL, EOMs intact bilaterally and conjunctivae normal Neck no lymphadenopathy Resp normal respiratory effort and clear to auscultation bilaterally Cardio regular rate, regular rhythm and no murmurs Peripheral Pulses: pulses 2+ throughout GI normal to inspection, nondistended, normoactive bowel sounds, non-tender and non-distended Extremity normal to inspection Skin no rashes or lesions noted Skin Narrative: Left foot dressing intact. Lesions: no lesions Rashes: no rashes Trauma: no lacerations or abrasions Neuro CN's II-XII intact bilaterally, no focal motor deficits, no sensory deficits noted and deep tendon reflexes 2+ bilaterally Psych mental status grossly normal and affect normal Assessment & Plan Assessment/Plan (1) Abscess of left foot: PLAN: 1. Acute, recurrent infected diabetic left foot ulcer, underlying charcot deformity-podiatry consulted. Bedside I&D completed. Cultures pending. On IV clindamycin and IV vanc. Prior cultures grew strep agalactiae, Staphylococcus caprae, Enterococcus and anaerobic cocci. Wound RN consult. Continue dressing changes as ordered. PT/OT. 1. CAD with history of CABG and stents- Prior heart cath November 2018 which demonstrated mid RCA lesion 65% stenosis, FFR was done with no PCI. Stress echo June 2019 negative for ischemia. Continue medical management including aspirin, Plavix, carvedilol, statin, isosorbide. 3. Chronic kidney disease stage IIIa-at baseline, trend BMP. 4. Type 2 diabetes mellitus- Continue home insulin regimen. Accu-Cheks with sliding scale insulin. Reports neuropathy pain, worse at bedtime. We will begin gabapentin nightly. 5. Hypertension-stable, continue Norvasc, Coreg, lisinopril, isosorbide. 6. GERD-continue PPI. 7. Hypothyroidism-continue Synthroid. 8. PVD-continue aspirin, Plavix, statin. 9. Chronic microcytic anemia/iron deficiency anemia-stable. 10. Anxiety-uses CBD oil as needed. 11. Chronic severe malnutrition-dietitian consult. DVT prophylaxis- Lovenox sc This patient was seen by ADDISON GraysonC under the supervision of Dr. Becker. Documented by User: Dr. Jeanie Becker DO 12/10/20 14:25 Subjective Subjective This patient was seen in conjunction with Kasandra Perez NP. I agree with above and the following is representation my independent history and physical examination. See below for addendum to above. Patient states she had a miserable night. She indicates she did not sleep well related to her neuropathy. Otherwise she has been all right. Objective Data Lab / Micro Data Result Diagrams: 12/10/20 07:04 12/10/20 07:04 Physical Exam Const alert, oriented x3 and no apparent distress Constitutional Narrative: Obese, older white female lying in bed, sleeping but awakens easily, nontoxic but appears fatigued General Appearance: cooperative Orientation / Consciousness: awake, oriented to person, oriented to place and oriented to time Exam Limitations: no limitations HEENT normocephalic, head/scalp atraumatic and hearing grossly normal bilaterally Head and Scalp: normocephalic Resp normal respiratory effort, no retractions, no use of accessory muscles and clear to auscultation bilaterally Cardio regular rate, regular rhythm, S1 normal heart sound, S2 normal heart sound, no murmurs, no rub, no gallops, no clicks and no JVD Peripheral Pulses: pulses 2+ throughout GI normal to inspection, nondistended, normoactive bowel sounds, soft to palpation, non-tender and non-distended Skin Skin Narrative: Left foot dressing intact. 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 evidence of necrosis: (3) Type 2 diabetes mellitus with diabetic polyneuropathy: PLAN: Assessment: Acute infection of diabetic foot ulcer-recurrent Charcot foot deformity Chronic microcytic anemia secondary to CKD-stable CKD stage IIIb DM-2 CAD Hypertension GERD Hyperlipidemia GERD Hypothyroidism Peripheral vascular disease Anxiety Chronic severe malnutrition Plan: -I&D performed 12/09/2020 -Cultures remain pending--> blood and wound -Continue antibiotics and narrow as results from cultures are obtained -Continue wound care -Fasting blood sugar this morning was good--> continue current Lantus dose of 34 units twice daily -Prandial sugars are still elevated--> increase to high-dose sliding scale -Gabapentin uptitrated for neuropathy to 300 mg nightly--> could consider 3 times daily dosing -Continue home morphine oral -Continue home blood pressure medications -Patient states her lisinopril was recently increased -Patient had an A1c in August 2020 and it was 7.1 -Renal function remained stable -MRSA PCR is negative -Appreciate podiatry input Charges/Coding Visit Charges Inpatient E&M: 59404 Subs Hosp L2
[2020-12-10] MEDS: Clopidogrel Bisulfate 75 MG Tablet PO (11:06)
[2020-12-10 12:01] LABS: Bedside Glucose 258 mg/dL (70-110)
[2020-12-10] MEDS: Insulin Lispro 100 UNIT/ML INSULN.PEN SC ×2 (12:32→22:25)
[2020-12-10 15:00] VITALS: RESP 18
[2020-12-10 16:53] VITALS: BP 144/70; PULSE 74; RESP 18; TEMP 36.9; O2SAT 98
[2020-12-10 16:55] LABS: Bedside Glucose 121 mg/dL (70-110)
[2020-12-10 20:01] VITALS: BP 158/62; PULSE 75; RESP 18; TEMP 37.6; O2SAT 97
[2020-12-10] MEDS: Pravastatin 40 MG Tablet PO (21:56)
[2020-12-10] MEDS: Levothyroxine 75 MCG Tablet PO ×2 (21:58→22:04)
[2020-12-10] MEDS: tiZANidine HCl 2 MG Tablet 4 MG PO (22:19)
--- NOTE | 2020-12-10 22:34 | PCM.RX.CS ---
Consult Pharmacy has been consulted to manage selected antiobiotic: Vancomycin Prior Doses of Antibiotics Received/Current Regimen: Medications Vancomycin HCl 1,250 mg/ (Sodium Chloride) 275 mls @ 167 mls/hr IV Q24H SHAHBAZ Last Admin: 12/10/20 22:14 Dose: 167 mls/hr Documented by: Labs: Sodium 144 mmol/L (136-145) 12/10/20 07:04 Potassium 4.3 mmol/L (3.5-5.1) 12/10/20 07:04 Chloride 116 mmol/L (98-107) H 12/10/20 07:04 Carbon Dioxide 21.0 mmol/L (21.0-32.0) 12/10/20 07:04 Anion Gap 7 (5-15) 12/10/20 07:04 BUN 29 mg/dL (7-18) H 12/10/20 07:04 Creatinine 1.02 mg/dL (0.55-1.02) 12/10/20 07:04 Est GFR (MDRD) Af Amer 68 mL/min (>60) 12/10/20 07:04 Est GFR (MDRD) Non-Af 56 mL/min (>60) L 12/10/20 07:04 BUN/Creatinine Ratio 28.4 RATIO (10-20) H 12/10/20 07:04 Glucose 105 mg/dL (74-106) 12/10/20 07:04 Vancomycin Trough 14.0 ug/mL (5.0-15.0) 12/10/20 21:24 Microbiology: Microbiology 12/08/20 23:05 Wound - Left Foot Gram Stain - Final 12/08/20 23:05 Wound - Left Foot Wound Culture - Preliminary Gram negative mitch Weight used for dosin kg Goal Trough: 15-20 mcg/mL Pharmacy Plan for Drug Dosing: Trough slightly below goal. Recommend to continue current dosing as it will likely be in range in steady state and recheck in 3 days. Pharmacy Service will continue to monitor and adjust dosing as required. Follow-Up Labs: Trough Vancomycin - 12/13 @ 2130
[2020-12-10 22:51] LABS: Bedside Glucose 310 mg/dL (70-110)
[2020-12-11] VITALS (8 sets, daily range): BP systolic 120–176; BP diastolic 53–68; PULSE 59–70; RESP 18; TEMP 36.6–37; O2SAT 97–100
[2020-12-11] MEDS: 0.9% Normal Saline 1,000 ML 150 ML IV ×2 (00:46→08:33)
[2020-12-11] MEDS: traZODone 100 MG Tablet PO ×2 (00:53→23:58)
[2020-12-11] MEDS: Insulin Lispro 100 UNIT/ML INSULN.PEN SC ×2 (06:31→12:02)
[2020-12-11] MEDS: Acetaminophen 500 MG Tablet 1000 MG PO (06:34)
[2020-12-11 06:36] LABS: Bedside Glucose 161 mg/dL (70-110)
[2020-12-11] MEDS: Multivitamins,Ther W-Minerals Tablet 1 TABLET PO (08:36)
--- NOTE | 2020-12-11 08:50 | PN_ITS ---
Subjective Subjective Patient was seen this morning for follow up on left foot. She relates she is feeling good, but she is disturbed about the thought of loosing her leg. She relates she will not agree to removing her leg. She has no complaints of fever, chills, nausea or vomiting. Objective Data Objective Data Vital Signs: Vital Signs Temp Pulse Resp BP Pulse Ox 98.5 F 66 18 135/53 H 97 12/11/20 02:02 12/11/20 02:02 12/11/20 02:02 12/11/20 02:02 12/11/20 02:02 Oxygen Delivery Method Room Air Weight: 80.3 kg Body Mass Index (BMI) 30.4 Intake & Output: Intake and Output for Last 24 Hours 12/09/20 12/10/20 12/11/20 23:59 23:59 23:59 Intake Total 4191.0 / 4191.0 5798.5 / 5798.5 2019.2019. Output Total 1700 / 1700 4200 / 4200 Balance 2491.0 / 2491.0 1598.5 / 1598.5 Lab / Micro Data Result Diagrams: 12/10/20 07:04 12/10/20 07:04 Labs: Laboratory Results - last 24 hr 12/10/20 11:55: POC Glucose 258 H 12/10/20 16:48: POC Glucose 121 H 12/10/20 21:24: Vancomycin Trough 14.0 12/10/20 22:24: POC Glucose 310 H 12/11/20 06:29: POC Glucose 161 H Micro: Microbiology 12/08/20 23:05 Wound - Left Foot Gram Stain - Final 12/08/20 23:05 Wound - Left Foot Wound Culture - Final Morganella morganii sp morgani Physical Exam Const alert, oriented x3 and no apparent distress Extremity no calf tenderness Extremity Narrative: Left foot: plantar foot ulceration with no evidence of infection, wound is down to bone - it is overall healing and tissues healthy and viable appearing, s/p I+D debridement site dorsal lateral foot healing well - no purulence, no necrosis, no maloder, no fluctuance, no crepitus, and no erythema - cellulitis resolved. No evidence of acute ischemia left foot. No new areas of break down to the left foot or ankle. No calf pain bilateral or evidence of dvt. No evidence of acute charcot neuropathy to the left foot. 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 Clinically left foot much improved. The patient has been started on IV clindamycin and vancomycin, reviewed culture results and noted to have morganella. Discussed with Dr. Becker, plan is for changing antibiotic- possibly Zosyn, also order MRI for further evaluation of possibly bone involvement and to help determine duration of antibiotics, along with Infectious Disease consult. Otherwise from podiatry standpoint, once home a ntibiotics determined ok for discharge. Wound care: Dakin's wet to dry gauze packing to dorsal lateral foot, and dakin's wet to dry gauze plantar ulcer - change BID. Keep dressing clean, dry and intact otherwise. No weightbearing left foot, keep left foot elevated. Podiatry will continue to follow. (6) Peripheral arterial occlusive disease:
[2020-12-11] MEDS: Calcium (Elemental) 500 MG Tablet 250 MG PO ×2 (08:55→21:15)
[2020-12-11] MEDS: Clopidogrel Bisulfate 75 MG Tablet PO (08:57)
[2020-12-11] MEDS: Polyethylene Glycol 3350 17 GM PACKET PO (08:57)
[2020-12-11] MEDS: Aspirin E.C. 81 MG Tablet PO (08:57)
[2020-12-11] MEDS: Allopurinol 100 MG Tablet PO (08:58)
[2020-12-11] MEDS: Lisinopril 10 MG Tablet PO ×2 (08:58→21:17)
[2020-12-11] MEDS: Isosorbide Mononitrate 60 MG Tablet PO (08:59)
[2020-12-11] MEDS: Creon 24,000 unit DR Capsule 1 CAP PO ×2 (08:59→21:14)
[2020-12-11] MEDS: guaiFENesin 600 MG Tablet PO (09:00)
[2020-12-11] MEDS: Enoxaparin 40 MG/0.4 ML Syringe SC (09:00)
[2020-12-11] MEDS: Carvedilol 25 MG Tablet PO ×2 (09:00→21:15)
[2020-12-11] MEDS: amLODIPine 5 MG Tablet PO ×2 (09:01→21:15)
[2020-12-11] MEDS: Pantoprazole Sodium 20 MG Tablet PO ×2 (09:01→21:17)
[2020-12-11] MEDS: DAKIN'S SOL HALF STRENGTH (=0.25%) 1 APPLIC TOPICAL ×2 (09:12→21:20)
[2020-12-11] MEDS: Loratadine 10 MG Tablet PO (09:12)
--- NOTE | 2020-12-11 10:36 | PCM.PN.HOSP ---
Documented by User: Kasandra Perez NP, [employer] SUPER[employer]OR-[employer] 12/11/20 10:41 Subjective Subjective Patient seen and examined. States she slept well overnight. She declined gabapentin as she has taken in the past and does not like the way she feels. States muscle relaxer helped her neuropathy symptoms last night. Denies other symptoms or complaints. Objective Data Objective Data Vital Signs: Vital Signs Temp Pulse Resp BP Pulse Ox 98.5 F 66 18 135/53 H 97 12/11/20 02:02 12/11/20 02:02 12/11/20 02:02 12/11/20 02:02 12/11/20 02:02 Oxygen Delivery Method Room Air Weight: 177 lb 0.499 oz Body Mass Index (BMI) 30.4 Intake & Output: Intake and Output for Last 24 Hours 12/09/20 12/10/20 12/11/20 23:59 23:59 23:59 Intake Total 4191.0 / 4191.0 5798.5 / 5798.5 2178.0 / 2178.0 Output Total 1700 / 1700 4200 / 4200 Balance 2491.0 / 2491.0 1598.5 / 1598.5 2178.0 / 2178.0 Lab / Micro Data Result Diagrams: 12/10/20 07:04 12/10/20 07:04 Labs: Laboratory Results - last 24 hr 12/10/20 11:55: POC Glucose 258 H 12/10/20 16:48: POC Glucose 121 H 12/10/20 21:24: Vancomycin Trough 14.0 12/10/20 22:24: POC Glucose 310 H 12/11/20 06:29: POC Glucose 161 H Micro: Microbiology 12/08/20 21:53 Blood Culture (Wb) - Left Forearm Blood Culture - Preliminary No growth in 48 hours. 12/08/20 19:46 Blood Culture (Wb) - Left Wrist Blood Culture - Preliminary No growth in 48 hours. 12/08/20 23:05 Wound - Left Foot Gram Stain - Final 12/08/20 23:05 Wound - Left Foot Wound Culture - Final Morganella morganii sp morgani Physical Exam Const alert, oriented x3 and no apparent distress Orientation / Consciousness: awake, oriented to person, oriented to place and oriented to time HEENT normocephalic and moist oral mucous membranes Eyes PERRL, EOMs intact bilaterally and conjunctivae normal Neck no lymphadenopathy Resp normal respiratory effort and clear to auscultation bilaterally Cardio regular rate, regular rhythm and no murmurs Peripheral Pulses: pulses 2+ throughout GI normal to inspection, nondistended, normoactive bowel sounds, non-tender and non-distended Extremity normal to inspection Skin no rashes or lesions noted Skin Narrative: Left foot dressing intact, change by podiatry this morning Lesions: no lesions Rashes: no rashes Trauma: no lacerations or abrasions Neuro CN's II-XII intact bilaterally, no focal motor deficits, no sensory deficits noted and deep tendon reflexes 2+ bilaterally Psych mental status grossly normal and affect normal Assessment & Plan Assessment/Plan (1) Cellulitis of left lower limb: PLAN: 1. Acute, recurrent infected diabetic left foot ulcer, underlying charcot deformity-podiatry consulted. Bedside I&D completed. Cultures growing morganella. Transition to IV Zosyn based on sensitivities. Prior cultures grew strep agalactiae, Staphylococcus caprae, Enterococcus and anaerobic cocci. Wound RN consult. Continue dressing changes as ordered. PT/OT. ID consult. Obtain left lower extremity MRI to rule out osteo. 1. CAD with history of CABG and stents- Prior heart cath November 2018 which demonstrated mid RCA lesion 65% stenosis, FFR was done with no PCI. Stress echo June 2019 negative for ischemia. Continue medical management including aspirin, Plavix, carvedilol, statin, isosorbide. 3. Chronic kidney disease stage IIIa-at baseline, trend BMP. 4. Type 2 diabetes mellitus- Continue home insulin regimen. Accu-Cheks with sliding scale insulin. Reports neuropathy pain, worse at bedtime. We will begin gabapentin nightly. 5. Hypertension-stable, continue Norvasc, Coreg, lisinopril, isosorbide. 6. GERD-continue PPI. 7. Hypothyroidism-continue Synthroid. 8. PVD-continue aspirin, Plavix, statin. 9. Chronic microcytic anemia/iron deficiency anemia-stable. 10. Anxiety-uses CBD oil as needed. 11. Chronic severe malnutrition-dietitian consult. DVT prophylaxis- Lovenox sc This patient was seen by CLIFFORD Grayson under the supervision of Dr. Becker. Documented by User: Dr. Jeanie Becker DO 12/11/20 14:52 Subjective Subjective Patient was seen in conjunction with Kasandra Perez NP. The following is representation my independent history and physical examination. Please see below for any addendum's to the above. Patient reports she slept better. She states she took her muscle relaxant and that seemed to help. She did not take the gabapentin because she states she does not like the way it or Lyrica makes her feel. She also states that she would like to take her medications in the evening at specific times to make sure her sleep is more restful. Objective Data Lab / Micro Data Result Diagrams: 12/10/20 07:04 12/10/20 07:04 Physical Exam Const alert, oriented x3 and no apparent distress Constitutional Narrative: Obese, older white female lying in bed, eyes closed but patient is awake General Appearance: cooperative Orientation / Consciousness: awake, oriented to person, oriented to place and oriented to time Exam Limitations: no limitations HEENT normocephalic, head/scalp atraumatic, hearing grossly normal bilaterally and moist oral mucous membranes Head and Scalp: normocephalic Resp normal respiratory effort, no retractions, no use of accessory muscles and clear to auscultation bilaterally Cardio regular rate, regular rhythm, S1 normal heart sound, S2 normal heart sound, no murmurs, no rub, no gallops, no clicks and no JVD Peripheral Pulses: pulses 2+ throughout GI normal to inspection, nondistended, normoactive bowel sounds, soft to palpation, non-tender and non-distended Extremity normal to inspection Extremity Narrative: Dressing removed while is at the bedside, wound status post I&D on the lateral aspect of the dorsum of the left foot shows no significant erythema and no drainage, wound on the bottom of her foot appears to be healing Skin Lesions: no lesions Rashes: no rashes Trauma: no lacerations or abrasions Neuro oriented x3 and deep tendon reflexes 2+ bilaterally Neuro Narrative: Bilateral lower extremity neuropathy Sensorium / Orientation: awake and alert Psych mental status grossly normal Assessment & Plan Assessment/Plan (1) Abscess of left foot: (2) Diabetic infection of left foot: (3) Diabetes mellitus type 2 in obese: PLAN: Assessment: Acute infection of diabetic foot ulcer-recurrent Charcot foot deformity Chronic microcytic anemia secondary to CKD-stable CKD stage IIIb DM-2 CAD Hypertension GERD Hyperlipidemia GERD Hypothyroidism Peripheral vascular disease Anxiety Chronic severe malnutrition Plan: -I&D performed 12/09/2020 -Morganella is growing from the wound--> organism has some resistance -Discontinue Vanco and clindamycin -Start Zosyn -MRI of foot -Consult infectious disease -Continue wound care -Patient insisted on reducing insulin dose to 25 units twice daily of Lantus because her p.o. intake is less at the hospital--> blood sugars remain elevated -Gabapentin was tried for her neuropathy but she states she does not like the way this or Lyrica makes her feel so she refused to take it -Continue home morphine oral -Continue home blood pressure medications -Patient states her lisinopril was recently increased -Patient had an A1c in August 2020 and it was 7.1 -Renal function remained stable -MRSA PCR is negative -Appreciate podiatry input--> discussed case with Dr. Espino this morning Charges/Coding Visit Charges Inpatient E&M: 26879 Subs Hosp L2
[2020-12-11 12:05] LABS: Bedside Glucose 240 mg/dL (70-110)
[2020-12-11] MEDS: tiZANidine HCl 2 MG Tablet 4 MG PO ×2 (14:51→22:37)
[2020-12-11 16:45] LABS: Bedside Glucose 133 mg/dL (70-110)
[2020-12-11] MEDS: hydrALAZINE 20 MG/ML Vial 10 MG IV ×2 (17:18→21:29)
[2020-12-11] MEDS: 0.9% Saline Lock 10 ML Syringe IV (17:18)
[2020-12-11] MEDS: morphine (oral solution) 10MG/0.5ML Syringe 6 MG PO (18:07)
[2020-12-11] MEDS: Acetaminophen 325 MG Tablet 650 MG PO (19:25)
[2020-12-11] MEDS: Pravastatin 40 MG Tablet PO (21:16)
[2020-12-11 21:31] LABS: Bedside Glucose 120 mg/dL (70-110)
[2020-12-12 03:02] VITALS: BP 140/52; PULSE 76; RESP 18; TEMP 36.9; O2SAT 94
[2020-12-12] MEDS: Acetaminophen 500 MG Tablet 1000 MG PO (04:10)
[2020-12-12 05:37] LABS: Absolute Lymphocyte Count 2.27 X10^3/uL (0.83-4.51); Absolute Neutrophil Count 3.8 X10^3/uL (2.0-7.7); Basophil# 0.04 X10^3/uL; Basophil% 0.6 % (0-1); Eosinophil# 0.26 X10^3/uL; Eosinophils% 3.7 % (0-5); Hematocrit 32.8 % (37-47); Hemoglobin 10.3 g/dL (12.0-15.0); Lymphocyte # 2.27 X10^3/ul (0.83-4.51); Lymphocyte % 32.5 % (19-41); Mean Corp Hgb Conc 31.4 g/dL (32-36); Mean Corpuscular Hgb 26.8 pg (27.0-32.0); Mean Corpuscular Volume 85.2 fL (81-99); Mean Platelet Vol. 8.6 fl (6.2-12.0); Monocyte% 8.6 % (0-10); NRBC Flagged by Analyzer 0 % (0-5); Neutrophil # 3.75 X10^3/uL (2.7-7.7); Neutrophil % 53.7 % (47-70); Platelet Count 279 K/mm3 (150-450); RBC Distribution Width CV 15.3 % (11.6-14.6); RBC Distribution Width SD 47.4 fl (35.1-43.9); Red Blood Count 3.85 M/mm3 (4.2-5.4)
[2020-12-12 06:04] LABS: Anion Gap 5 (5-15); BUN 24 mg/dL (7-18); BUN/Creat Ratio 24.7 RATIO (10-20); Calcium,Total 8.5 mg/dL (8.5-10.1); Chloride 112 mmol/L (98-107); Creatinine, Serum 0.97 mg/dL (0.55-1.02); EST Glomerular Filtration Rate 60 mL/min (>60); Est Glom Filt Rate - Afr Amer 72 mL/min (>60); Glucose 78 mg/dL (74-106); Potassium 4.6 mmol/L (3.5-5.1); Sodium Level 139 mmol/L (136-145)
[2020-12-12 06:35] LABS: Bedside Glucose 89 mg/dL (70-110)
--- NOTE | 2020-12-12 07:05 | PN_ITS ---
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 She denies fever, chills, nausea or vomiting. She rates her pain as a 1 out of 10. She is restless and had difficulty sleeping. Objective Data Objective Data Vital Signs: Vital Signs Temp Pulse Resp BP Pulse Ox 98.4 F 76 18 140/52 H 94 12/12/20 03:02 12/12/20 03:02 12/12/20 03:02 12/12/20 03:02 12/12/20 03:02 Oxygen Delivery Method Room Air Weight: 80.3 kg Body Mass Index (BMI) 30.4 Intake & Output: Intake and Output for Last 24 Hours 12/10/20 12/11/20 12/12/20 23:59 23:59 23:59 Intake Total 5798.5 / 5798.5 4578.00 / 4578.00 50 / 50 Output Total 4200 / 4200 Balance 1598.5 / 1598.5 4578.00 / 4578.00 50 / 50 Lab / Micro Data Result Diagrams: 12/12/20 05:26 12/12/20 05:26 Labs: Laboratory Results - last 24 hr 12/11/20 12:02: POC Glucose 240 H 12/11/20 16:39: POC Glucose 133 H 12/11/20 21:09: POC Glucose 120 H 12/12/20 05:26: WBC 7.0, RBC 3.85 L, Hgb 10.3 L, Hct 32.8 L, MCV 85.2, MCH 26.8 L, MCHC 31.4 L, RDW Std Deviation 47.4 H, RDW Coeff of Marco 15.3 H, Plt Count 279, MPV 8.6, Immature Gran % (Auto) 0.900, Neut % (Auto) 53.7, Lymph % (Auto) 3 2.5, [place] % (Auto) 8.6, Eos % (Auto) 3.7, Baso % (Auto) 0.6, Absolute Neuts (auto) 3.8, Absolute Lymphs (auto) 2.27, Nucleated RBC % 0 12/12/20 05:26: Sodium 139, Potassium 4.6, Chloride 112 H, Carbon Dioxide 22.0, Anion Gap 5, BUN 24 H, Creatinine 0.97, Estim Creat Clear Calc 44.60, Est GFR (MDRD) Af Amer 72, Est GFR (MDRD) Non-Af 60, BUN/Creatinine Ratio 24.7 H, Glucose 78, Calcium 8.5 12/12/20 06:33: POC Glucose 89 Micro: Microbiology 12/08/20 21:53 Blood Culture (Wb) - Left Forearm Blood Culture - Preliminary No growth in 48 hours. 12/08/20 19:46 Blood Culture (Wb) - Left Wrist Blood Culture - Preliminary No growth in 48 hours. 12/08/20 23:05 Wound - Left Foot Gram Stain - Final 12/08/20 23:05 Wound - Left Foot Wound Culture - Final Morganella morganii sp morgani Physical Exam Const alert, oriented x3 and no apparent distress Extremity no calf tenderness Extremity Narrative: Left foot: plantar foot ulceration with no evidence of infection, wound is down to bone - it is overall healing and tissues healthy and viable appearing, s/p I+D debridement site dorsal lateral foot healing well - no purulence, no necrosis, no maloder, no fluctuance, no crepitus, and no erythema - cellulitis resolved. No evidence of acute ischemia left foot. No new areas of break down to the left foot or ankle. No calf pain bilateral or evidence of dvt. No evidence of acute charcot neuropathy to the left foot. 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 Clinically left foot much improved. She does not have leukocytosis and her white blood cell count 7.0. She is afebrile. The patient has been started on IV clindamycin, zosyn, and vancomycin, reviewed culture results from dorsal foot I & D, and noted to have morganella (final pending). Culture results from plantar foot ulcer from wound center include multiorganism growth: morganella, strep viridans, staph simulans, prevotella bivia, actinomyces neuii. MRI for further evaluation of possibly bone involvement and to help determine duration of antibiotics versus surgical intervention. Infectious Disease consult was also placed and will be appreciated. Wound care: Dakin's wet to dry gauze packing to dorsal lateral foot, and dakin's wet to dry gauze plantar ulcer - change daily. Keep dressing clean, dry and intact otherwise. No weightbearing left foot, keep left foot elevated. We had a discussion that this foot infection is limb and even life-threatening. She has been admitted multiple times for infected left foot. Treatment option including antibiotics and wound care versus amputation were discussed. She is not amendable to having a below the knee amputation signed. I discussed the benefits and goals of this potentially recommended procedure including deformity correction and removal of the nidus of recurrent infection. I do not recommend reconstructive Charcot surgery given her cardiac status. Additional foot amputations or debridements are possible and we will have more direction after this MRI is updated. It is noted she also had recent vascular surgery intervention in the outpatient setting and has improved perfusion status. Podiatry will continue to follow. Please do not hesitate to call if you have any questions. Ivanna Magana DPM, [facility] [phone] (6) Peripheral arterial occlusive disease:
[2020-12-12 07:27] VITALS: O2SAT 96
--- NOTE | 2020-12-12 07:27 | NURSING ---
wound photo: left plantar foot
--- NOTE | 2020-12-12 07:27 | NURSING ---
wound photo: left lateral foot
[2020-12-12] MEDS: Carvedilol 25 MG Tablet PO ×2 (07:40→21:33)
[2020-12-12] MEDS: Clopidogrel Bisulfate 75 MG Tablet PO (07:41)
[2020-12-12] MEDS: guaiFENesin 600 MG Tablet PO ×2 (07:41→21:38)
[2020-12-12] MEDS: Aspirin E.C. 81 MG Tablet PO (07:42)
[2020-12-12] MEDS: Isosorbide Mononitrate 60 MG Tablet PO (07:42)
[2020-12-12] MEDS: amLODIPine 5 MG Tablet PO ×2 (07:43→21:38)
[2020-12-12] MEDS: Polyethylene Glycol 3350 17 GM PACKET PO (07:43)
[2020-12-12] MEDS: Pantoprazole Sodium 20 MG Tablet PO ×2 (07:44→21:40)
[2020-12-12] MEDS: Multivitamins,Ther W-Minerals Tablet 1 TABLET PO (07:44)
[2020-12-12] MEDS: Lisinopril 10 MG Tablet PO (07:45)
[2020-12-12] MEDS: Calcium (Elemental) 500 MG Tablet 250 MG PO ×2 (07:45→21:39)
[2020-12-12] MEDS: Allopurinol 100 MG Tablet PO (07:46)
[2020-12-12] MEDS: Creon 24,000 unit DR Capsule 1 CAP PO ×2 (07:47→21:54)
[2020-12-12] MEDS: Loratadine 10 MG Tablet PO (07:48)
[2020-12-12 07:59] VITALS: PULSE 77
[2020-12-12 08:02] VITALS: BP 158/84; PULSE 77; RESP 18; TEMP 36.7; O2SAT 99
[2020-12-12] MEDS: DAKIN'S SOL HALF STRENGTH (=0.25%) 1 APPLIC TOPICAL (08:24)
--- NOTE | 2020-12-12 08:39 | MRI_ITS ---
STUDY: MRI LEFT MIDFOOT REASON FOR EXAM: Female, 75 years old. Rule out left foot osteo TECHNIQUE: Standardized fat and water weighted pulse sequences were obtained in all 3 orthogonal planes. COMPARISON: 09/20/2020. FINDINGS: Diffuse patient motion. Large midfoot ulceration with suspected organizing fluid collection measuring 4.1 cm x 3.3 cm (short axis image 12 series 6). Acute on chronic bone destruction at the midfoot predominating at the second metatarsal base, third metatarsal base, fourth metatarsal base, fifth metatarsal base, cuboid, lateral cuneiform and medial cuneiform. No new dislocation. No new fracture. Advanced mid foot arthrosis. Mild/moderate joint space narrowing at the visualized portions of the digits. Normal tibiotalar joint. Mild subtalar joint arthrosis predominating anteriorly. Mild calcaneocuboid arthrosis. Mild talonavicular arthrosis. Diffuse muscle atrophy. Chronic tears at the second through fifth flexor tendons. Extensor tendons are grossly intact. Chronic Lisfranc ligament tear with subluxation. Chronic plantar fascial tear. MRI/Lower Ext/No Jt/w/o IMPRESSION: Motion limited evaluation Acute on chronic extensive midfoot bone destruction (suspected acute on chronic osteomyelitis) Large plantar ulceration with suspected organizing collection/abscess (limited secondary to noncontrast technique) Advanced midfoot degenerative changes Chronic tears at the second through fifth flexor tendons Chronic Lisfranc ligament tear with subluxation Chronic plantar fascial tear Diffuse muscle atrophy/denervation Electronically Signed: Con Faith DO at 11:11 EDT Tel , Service support ,
--- NOTE | 2020-12-12 10:13 | NURSING ---
pt off unit
--- NOTE | 2020-12-12 10:47 | NURSING ---
pt continues to be off unit
--- NOTE | 2020-12-12 11:30 | NURSING ---
pt remains off unit
[2020-12-12] MEDS: Insulin Lispro 100 UNIT/ML INSULN.PEN SC ×3 (11:40→21:37)
[2020-12-12] MEDS: Enoxaparin 40 MG/0.4 ML Syringe SC (11:40)
[2020-12-12 11:46] LABS: Bedside Glucose 165 mg/dL (70-110)
--- NOTE | 2020-12-12 11:48 | NURSING ---
pt returned to unit
--- NOTE | 2020-12-12 13:14 | CON.PCM.ID_ITS ---
Assessment & Plan Assessment/Plan (1) Abscess of left foot: PLAN: MRI shows osteo and abscess. Foot cx with morganella, strep, MS S. simulans, actino, anaerobe. Will change zosyn to meropenem to have actino coverage. May need surgical I&D vs amputation. Will follow, thank you (2) Type 2 diabetes mellitus with diabetic polyneuropathy: HPI Consult Data Date of Consult: 12/12/20 HPI Narrative HPI Narrative: SEBASTIÁN REYES, is a 75 F with CAD, charcot foot, recurrent osteo, presented with worsening L foot. Started as pustule with no inciting event on 12/05, had progressive pain, redness, swelling, chills. Came to ED, seen by podiatry, abscess lanced, on zosyn. Now better but some mild diarrhea. Has completed covid vaccine. Full ROS performed and neg except as noted above. [facility] Medical History (Updated 12/08/20 @ 23:[address] Nicholas Espino, DPM) Anemia Anxiety Atherosclerotic heart disease of [place] coronary artery without angina pectoris Carotid artery disease Carpal tunnel syndrome Charcot's joint of left foot Chest pain Congestive heart failure (CHF) Coronary artery disease CPAP (continuous positive airway pressure) dependence Diabetes DVT (deep venous thrombosis) Essential hypertension GERD (gastroesophageal reflux disease) GI bleed Gout History of blood clots History of blood transfusion History of CVA (cerebrovascular accident) Hyperlipidemia Hypertension Hypothyroidism Hypothyroidism IBS (irritable bowel syndrome) Iron deficiency anemia Kidney stones Migraines Myocardial infarct Neuropathy Non-smoker Obesity Osteoporosis Peripheral arterial occlusive disease Peripheral vascular disease Rheumatoid arthritis Sleep apnea Type 2 diabetes mellitus with diabetic polyneuropathy Ulcer of abdomen wall with fat layer exposed Ulcer of left foot with fat layer exposed Vitamin D deficiency Home Medications pravastatin 40 mg PO QHS 03/10/17 [History Last Taken 12/07/20] allopurinol 100 mg PO DAILY 03/17/20 [History Last Taken 12/08/20] calcium citrate 200 mg PO BID #0 03/17/20 [Rx Last Taken 12/08/20] aspirin 81 mg tablet,delayed release 81 mg PO DAILY 04/05/20 [History Last Taken 12/07/20] cbd 1 dose PO 4X/DAY PRN 04/05/20 [History Last Taken 12/08/20] qllaor-nehgdbvo-yeapkbx 24,000-76,000-120,000 unit capsule,delayed rel 1 cap PO BID cap 04/05/20 [History Last Taken 12/08/20] carvedilol 25 mg PO BID 08/17/20 [History Last Taken 12/08/20] levothyroxine 75 mcg PO QHS 08/17/20 [History Last Taken 12/07/20] linaclotide 72 mcg PO DAILY 08/17/20 [History Last Taken 11/21/20] metoclopramide HCl 10 mg PO Q8H PRN 08/17/20 [History Last Taken 12/07/20] cwvaopnmyeth-nzej-ynzpk acid 0.5 tablet PO BID 08/17/20 [History Last Taken ] trazodone 100 mg PO QHS PRN 08/17/20 [History Last Taken 12/07/20] venlafaxine 100 mg PO BID 08/17/20 [History Last Taken 12/08/20] insulin lispro 6 - 8 unit SUBCUT BID 08/22/20 [History Last Taken 12/08/20] acetaminophen 1,000 mg PO Q8H PRN PRN #0 tablet 09/09/20 [Rx Last Taken 12/08/20] tizanidine 4 mg PO Q8H PRN PRN #20 tablet 09/09/20 [Rx Last Taken 12/07/20] clopidogrel 75 mg tablet 75 mg PO DAILY #90 tablet 09/16/20 [Rx Last Taken 12/08/20] yspbk-cngz-CuCRH-zpdjes-yj-elg 1 packet PO BIDCM 09/19/20 [History Last Taken 12/08/20] morphine 3 ml PO Q6H PRN PRN 09/19/20 [History Last Taken 12/07/20] nitroglycerin 0.4 mg SL TID PRN PRN 09/19/20 [History Last Taken 1 Week Ago ~12/01/20] polyethylene glycol 3350 17 gm PO DAILY 09/19/20 [History Last Taken 12/08/20] sennosides-docusate sodium 1 tablet PO QHS 09/19/20 [History Last Taken 12/07/20] amlodipine 5 mg tablet 5 mg PO BID #180 tab 11/09/20 [Rx Last Taken 12/08/20] cephalexin 500 mg PO Q8H 12/08/20 [History Last Taken 12/08/20] esomeprazole magnesium 20 mg PO BID 12/08/20 [History Last Taken 12/08/20] fexofenadine [Abimbola] 180 mg PO DAILY 12/08/20 [History Last Taken 12/08/20] guaifenesin [Mucus Relief ER] 600 mg PO DAILY 12/08/20 [History Last Taken 12/08/20] ibuprofen-diphenhydramine cit [Advil PM] 2 cap PO QHS 12/08/20 [History Last Taken 12/07/20] insulin detemir U-100 [Levemir FlexTouch U-100 Insuln] 34 unit SUBCUT BID 12/08/20 [History Last Taken 12/08/20] isosorbide mononitrate 60 mg PO DAILY 12/08/20 [History Last Taken 12/08/20] isosorbide mononitrate 120 mg PO QHS 12/08/20 [History Last Taken 12/07/20] lisinopril 10 mg PO BID 12/08/20 [History Last Taken 12/08/20] pantoprazole 40 mg PO DAILY 12/08/20 [History Last Taken 12/08/20] Allergy/AdvReac Type Severity Reaction Status Date / Time doxycycline Allergy Severe all over Verified 12/08/20 17:34 body hives and itching atorvastatin calcium Allergy Unknown Verified 12/08/20 17:34 [From Lipitor] bupropion HCl Allergy Unknown Verified 12/08/20 17:34 [From Wellbutrin] mannitol [From Reclast] Allergy joint Verified 12/08/20 17:34 pain, unable to breathe, unable to walk propoxyphene napsylate Allergy Unknown Verified 12/08/20 17:34 [From Darvocet-N 100] Quinolones Allergy Unknown Verified 12/08/20 17:34 Tetanus Vaccines and Toxoid Allergy Chest Verified 12/08/20 17:34 [Tetanus Vaccines & Toxoid] tightness tizanidine Allergy Unknown Verified 12/08/20 17:34 zoledronic acid Allergy joint Verified 12/08/20 17:34 [From Reclast] pain,unable to breathe, unaable to walk pravastatin AdvReac Severe Myalgias Verified 12/08/20 17:34 gemfibrozil AdvReac Intermediate Unknown Verified 12/08/20 17:34 NSAIDS (Non-Steroidal AdvReac Other Verified 12/08/20 17:34 Anti-Inflamma Family History (Reviewed 11/15/20 @ 15:10 by Lars Wahl SENIOR LICENSING MANAGER, SENIOR LICENSING MANAGER-C) Mother , age 75 Cancer CVA (cerebral vascular accident) CAD (coronary artery disease) Father CAD (coronary artery disease) History of coronary artery bypass graft Sister CAD (coronary artery disease) Multiple sclerosis Other Anxiety Bleeding disorder Depression Diabetes Heart disease High cholesterol Hypertension Surgical History (Updated 12/08/20 @ 21:59 by Olivia Maldonado) History of appendectomy History of cholecystectomy History of coronary artery bypass graft History of coronary artery stent placement History of excision of lesion History of gastric bypass History of gastric bypass History of left heart catheterization History of ventral hernia repair Hx of CABG Hx of ventral hernia repair Stented coronary artery (12/03/18) Social History (Reviewed 11/15/20 @ 15:10 by Lars Wahl SENIOR LICENSING MANAGER, SENIOR LICENSING MANAGER-C) Smoking Status: Never smoker alcohol intake: never substance use type: does not use caffeine: Yes Type: coffee what type of physical activity do you participate in: none seatbelt use: sometimes do you feel safe at home: Yes additional social history: DOES NOT TAKE ASPIRIN DOES TAKE IBUPROFEN NEEDED Physical Exam Const alert, oriented x3 and no apparent distress General Appearance: cooperative Exam Limitations: no limitations HEENT normocephalic and head/scalp atraumatic Eyes PERRL and EOMs intact bilaterally Neck supple and No nodes Resp normal air movement and clear to auscultation bilaterally Cardio regular rate and regular rhythm GI normal to inspection, nondistended, normoactive bowel sounds Extremity General Extremity: edema Skin Skin Narrative: reviewed photos L foot Neuro CN's II-XII intact bilaterally Lab / Micro Data Result Diagrams: 12/12/20 05:26 12/12/20 05:26 Labs: Laboratory Results - last 24 hr 12/11/20 16:39: POC Glucose 133 H 12/11/20 21:09: POC Glucose 120 H 12/12/20 05:26: WBC 7.0, RBC 3.85 L, Hgb 10.3 L, Hct 32.8 L, MCV 85.2, MCH 26.8 L, MCHC 31.4 L, RDW Std Deviation 47.4 H, RDW Coeff of Marco 15.3 H, Plt Count 279, MPV 8.6, Immature Gran % (Auto) 0.900, Neut % (Auto) 53.7, Lymph % (Auto) 32.5, [place] % (Auto) 8.6, Eos % (Auto) 3.7, Baso % (Auto) 0.6, Absolute Neuts (auto) 3.8, Absolute Lymphs (auto) 2.27, Nucleated RBC % 0 12/12/20 05:26: Sodium 139, Potassium 4.6, Chloride 112 H, Carbon Dioxide 22.0, Anion Gap 5, BUN 24 H, Creatinine 0.97, Estim Creat Clear Calc 44.60, Est GFR (MDRD) Af Amer 72, Est GFR (MDRD) Non-Af 60, BUN/Creatinine Ratio 24.7 H, Glucose 78, Calcium 8.5 12/12/20 06:33: POC Glucose 89 12/12/20 11:36: POC Glucose 165 H Micro: Microbiology 12/08/20 21:53 Blood Culture (Wb) - Left Forearm Blood Culture - Preliminary No growth in 48 hours. 12/08/20 19:46 Blood Culture (Wb) - Left Wrist Blood Culture - Preliminary No growth in 48 hours. Radiology Impression Lower Extremity MRI 12/12/20 08:39 IMPRESSION: Motion limited evaluation Acute on chronic extensive midfoot bone destruction (suspected acute on chronic osteomyelitis) Large plantar ulceration with suspected organizing collection/abscess (limited secondary to noncontrast technique) Advanced midfoot degenerative changes Chronic tears at the second through fifth flexor tendons Chronic Lisfranc ligament tear with subluxation Chronic plantar fascial tear Diffuse muscle atrophy/denervation Electronically Signed: Con Faith DO at 11:11 EDT Tel , Service support ,
[2020-12-12] MEDS: Acetaminophen 325 MG Tablet 650 MG PO (13:25)
[2020-12-12] MEDS: morphine (oral solution) 10MG/0.5ML Syringe 6 MG PO (13:26)
--- NOTE | 2020-12-12 14:06 | PCM.PN.HOSP ---
Documented by User: Kasandra Perez NP, FURNITURE RENTAL CONSULTANT-C 12/12/20 14:17 Subjective Subjective Patient seen and examined. MRI of left lower extremity shows acute on chronic osteomyelitis with large plantar ulceration and suspected abscess. Patient denies fever, chills. Denies other symptoms or complaints. Objective Data Objective Data Vital Signs: Vital Signs Temp Pulse Resp BP Pulse Ox 98.1 F 77 18 158/84 H 99 12/12/20 08:02 12/12/20 08:02 12/12/20 08:02 12/12/20 08:02 12/12/20 08:02 Oxygen Delivery Method Room Air Weight: 177 lb 0.499 oz Body Mass Index (BMI) 30.4 Intake & Output: Intake and Output for Last 24 Hours 12/10/20 12/11/20 12/12/20 23:59 23:59 23:59 Intake Total 5798.5 / 5798.5 4578.00 / 4578.00 520 / 520 Output Total 4200 / 4200 Balance 1598.5 / 1598.5 4578.00 / 4578.00 520 / 520 Lab / Micro Data Result Diagrams: 12/12/20 05:26 12/12/20 05:26 Labs: Laboratory Results - last 24 hr 12/11/20 16:39: POC Glucose 133 H 12/11/20 21:09: POC Glucose 120 H 12/12/20 05:26: WBC 7.0, RBC 3.85 L, Hgb 10.3 L, Hct 32.8 L, MCV 85.2, MCH 26.8 L, MCHC 31.4 L, RDW Std Deviation 47.4 H, RDW Coeff of Marco 15.3 H, Plt Count 279, MPV 8.6, Immature Gran % (Auto) 0.900, Neut % (Auto) 53.7, Lymph % (Auto) 32.5, [place] % (Auto) 8.6, Eos % (Auto) 3.7, Baso % (Auto) 0.6, Absolute Neuts (auto) 3.8, Absolute Lymphs (auto) 2.27, Nucleated RBC % 0 12/12/20 05:26: Sodium 139, Potassium 4.6, Chloride 112 H, Carbon Dioxide 22.0, Anion Gap 5, BUN 24 H, Creatinine 0.97, Estim Creat Clear Calc 44.60, Est GFR (MDRD) Af Amer 72, Est GFR (MDRD) Non-Af 60, BUN/Creatinine Ratio 24.7 H, Glucose 78, Calcium 8.5 12/12/20 06:33: POC Glucose 89 12/12/20 11:36: POC Glucose 165 H Micro: Microbiology 12/08/20 21:53 Blood Culture (Wb) - Left Forearm Blood Culture - Preliminary No growth in 48 hours. 12/08/20 19:46 Blood Culture (Wb) - Left Wrist Blood Culture - Preliminary No growth in 48 hours. 12/08/20 23:05 Wound - Left Foot Gram Stain - Final 12/08/20 23:05 Wound - Left Foot Wound Culture - Final Morganella morganii sp morgani Radiography Diagnostic Testing: Radiology Impression Lower Extremity MRI 12/12/20 08:39 IMPRESSION: Motion limited evaluation Acute on chronic extensive midfoot bone destruction (suspected acute on chronic osteomyelitis) Large plantar ulceration with suspected organizing collection/abscess (limited secondary to noncontrast technique) Advanced midfoot degenerative changes Chronic tears at the second through fifth flexor tendons Chronic Lisfranc ligament tear with subluxation Chronic plantar fascial tear Diffuse muscle atrophy/denervation Electronically Signed: Con Faith DO at 11:11 EDT Tel , Service support , Physical Exam Const alert, oriented x3 and no apparent distress Orientation / Consciousness: awake, oriented to person, oriented to place and oriented to time HEENT normocephalic and moist oral mucous membranes Eyes PERRL, EOMs intact bilaterally and conjunctivae normal Neck no lymphadenopathy Resp normal respiratory effort and clear to auscultation bilaterally Cardio regular rate, regular rhythm and no murmurs Peripheral Pulses: pulses 2+ throughout GI normal to inspection, nondistended, normoactive bowel sounds, non-tender and non-distended Extremity normal to inspection Skin no rashes or lesions noted Skin Narrative: Left foot wound, dressing intact. Lesions: no lesions Rashes: no rashes Trauma: no lacerations or abrasions Neuro CN's II-XII intact bilaterally, no focal motor deficits, no sensory deficits noted and deep tendon reflexes 2+ bilaterally Psych mental status grossly normal and affect normal Assessment & Plan Assessment/Plan (1) Abscess of left foot: (2) Cellulitis of left lower limb: PLAN: 1. Acute, recurrent infected diabetic left foot ulcer with abscess and acute on chronic osteomyelitis, underlying charcot deformity-podiatry consulted. Bedside I&D completed. Cultures growing morganella. IV meropenem. Prior cultures grew strep agalactiae, Staphylococcus caprae, Enterococcus and anaerobic cocci. Wound RN consult. Continue dressing changes as ordered. PT/OT. ID consult. MRI shows osteo and abscess. Patient will likely need surgical I&D. 1. CAD with history of CABG and stents- Prior heart cath November 2018 which demonstrated mid RCA lesion 65% stenosis, FFR was done with no PCI. Stress echo June 2019 negative for ischemia. Continue medical management including aspirin, Plavix, carvedilol, statin, isosorbide. 3. Chronic kidney disease stage IIIa-at baseline, trend BMP. 4. Type 2 diabetes mellitus- Continue home insulin regimen. Accu-Cheks with sliding scale insulin. Reports neuropathy pain, worse at bedtime. We will begin gabapentin nightly. 5. Hypertension-stable, continue Norvasc, Coreg, lisinopril, isosorbide. 6. GERD-continue PPI. 7. Hypothyroidism-continue Synthroid. 8. PVD-continue aspirin, Plavix, statin. 9. Chronic microcytic anemia/iron deficiency anemia-stable. 10. Anxiety-uses CBD oil as needed. 11. Chronic severe malnutrition-dietitian consult. DVT prophylaxis- Lovenox sc This patient was seen by CLIFFORD Grayson under the supervision of Dr. Salazar. Documented by User: Dr. Vicki Salazar MD 12/12/20 15:25 Objective Data Lab / Micro Data Result Diagrams: 12/12/20 05:26 12/12/20 05:26 Charges/Coding Addendum Addendum: This patient was seen in conjunction with Kasandra ePrez. I have independently interviewed and examined the patient and reviewed pertinent historical, laboratory, and other data. I have reviewed her note and concur with her documentation Patient was seen and examined. Denied any new complaints. Her blood pressure is uncontrolled. MRI of the left foot shows acute on chronic extensive mid bone destruction/osteomyelitis with large midfoot ulceration/abscess Physical Exam: Gen: Comfortable, not pale, not jaundiced CVS:HS I +II, regular, no murmurs RESP: Diminished at lung bases GI: BS present and normal, soft, nontender, no palpable organs EXT:No edema, left foot 12 hours on, 12 hours off ASSESSMENT: 1. Acute on chronic left mid foot osteomyelitis/abscess 2. Type II DM 3. CKD stage IIIa 4. CAD status post CABG, status post stents 5. Hypertension 6. Hypothyroidism 7. GERD 8. PAD 9. Iron deficiency anemia Plan: Continue per ID recommendations -meropenem Continue per podiatry recommendation Increase lisinopril to 20 mg p.o. twice daily Continue rest of home medications Visit Charges Inpatient E&M: [id number] [facility] H[facility] L3
[2020-12-12] MEDS: 0.9% Saline Lock 10 ML Syringe IV ×2 (14:20→22:59)
[2020-12-12 14:53] VITALS: BP 157/72; PULSE 78; PULSE 87; RESP 18; TEMP 36.8; O2SAT 98
--- NOTE | 2020-12-12 15:09 | CHAPLAIN ---
Type of Pastoral Visit _x__ Initial Visit ___ Follow-up Visit ___ On-call Visit ___ General Patient Visit ___ Spiritual Assessment ___ Family Conference ___ Bereavement ___ Rapid Response ___ Code Blue ___ Other (describe below) Pastoral Care Referral From _x__ Patient ___ Family ___ Nurse ___ Physician ___ Soaker ___ Oilfield Plant And Field Operator ___ Other (describe below) Sacrament/Intervention _x__ Active listening ___ Anointing ___ Yazdanism ___ Bereavement ___ Communion ___ Sharron exploration ___ _x__ Life review xPrayer ___ Reconciliation ___ Sacrament of Sick _x__ Supportive presence ___ Wedding ___ Other (describe below) Pastoral Comments patient has been seen before in previous admissions; pt gives update on health and life; pt was able to accomplish a goal of trip to [place] last month; pt goal is to go on cruise next year and to continue with better health
[2020-12-12 16:11] LABS: Bedside Glucose 161 mg/dL (70-110)
[2020-12-12 21:00] VITALS: BP 178/84; PULSE 82; RESP 18; TEMP 37.1; O2SAT 100
[2020-12-12] MEDS: Levothyroxine 75 MCG Tablet PO (21:40)
[2020-12-12] MEDS: Pravastatin 40 MG Tablet PO (21:40)
[2020-12-12] MEDS: tiZANidine HCl 2 MG Tablet 4 MG PO (21:54)
[2020-12-12 21:55] LABS: Bedside Glucose 180 mg/dL (70-110)
[2020-12-12] MEDS: Lisinopril 20 MG Tablet PO (21:57)
[2020-12-12] MEDS: traZODone 100 MG Tablet PO (23:06)
[2020-12-13] VITALS (11 sets, daily range): BP systolic 117–174; BP diastolic 53–80; PULSE 68–85; RESP 16–20; TEMP 36.1–37.2; O2SAT 91–99; BMI 30.4
[2020-12-13] MEDS: Acetaminophen 325 MG Tablet 650 MG PO ×2 (05:16→20:54)
[2020-12-13 05:44] LABS: Absolute Lymphocyte Count 2.42 X10^3/uL (0.83-4.51); Absolute Neutrophil Count 4.6 X10^3/uL (2.0-7.7); Basophil# 0.03 X10^3/uL; Basophil% 0.4 % (0-1); Eosinophil# 0.23 X10^3/uL; Eosinophils% 2.9 % (0-5); Hematocrit 36.8 % (37-47); Hemoglobin 11.7 g/dL (12.0-15.0); Lymphocyte # 2.42 X10^3/ul (0.83-4.51); Lymphocyte % 30.1 % (19-41); Mean Corp Hgb Conc 31.8 g/dL (32-36); Mean Platelet Vol. 8.5 fl (6.2-12.0); Monocyte# 0.71 X10^3/uL; Monocyte% 8.8 % (0-10); NRBC Flagged by Analyzer 0 % (0-5); Neutrophil # 4.59 X10^3/uL (2.7-7.7); Neutrophil % 57.2 % (47-70); Platelet Count 294 K/mm3 (150-450); RBC Distribution Width CV 15.3 % (11.6-14.6); Red Blood Count 4.33 M/mm3 (4.2-5.4)
[2020-12-13 06:18] LABS: Anion Gap 7 (5-15); BUN 30 mg/dL (7-18); BUN/Creat Ratio 30.1 RATIO (10-20); Calcium,Total 8.8 mg/dL (8.5-10.1); Chloride 109 mmol/L (98-107); EST Glomerular Filtration Rate 58 mL/min (>60); Est Glom Filt Rate - Afr Amer 70 mL/min (>60); Estimated Creatinine Clearance 43.27 ml/min; Glucose 96 mg/dL (74-106); Potassium 4.4 mmol/L (3.5-5.1); Sodium Level 140 mmol/L (136-145)
[2020-12-13 06:40] LABS: Bedside Glucose 111 mg/dL (70-110)
--- NOTE | 2020-12-13 07:13 | PN_ITS ---
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 She has a chronic ulcer with life and limb threatening recurrent infections with multiple hospital admissions for same ulcer site. Recent MRI does show bone and osteomyelitis is suspected at this time. She denies fever, chills, nausea or vomiting. She rates her pain as a 1 out of 10. She thought about surgical option and is ready to proceed this afternoon. She is on the phone with her this morning who participates in his exam and discussion. Objective Data Objective Data Vital Signs: Vital Signs Temp Pulse Resp BP Pulse Ox 97.8 F 81 18 117/69 100 12/13/20 03:00 12/13/20 03:00 12/13/20 03:00 12/13/20 03:00 12/12/20 21:00 Oxygen Delivery Method Room Air Weight: 80.3 kg Body Mass Index (BMI) 30.4 Intake & Output: Intake and Output for Last 24 Hours 12/11/20 12/12/20 12/13/20 23:59 23:59 23:59 Intake Total 4578.00 / 4578.00 1240 / 1240 120 / 120 Output Total 500 / 500 Balance 4578.00 / 4578.00 740 / 740 120 / 120 Lab / Micro Data Result Diagrams: 12/13/20 05:06 12/13/20 05:06 Labs: Laboratory Results - last 24 hr 12/12/20 11:36: POC Glucose 165 H 12/12/20 16:03: POC Glucose 161 H 12/12/20 21:24: POC Glucose 180 H 12/13/20 05:06: WBC 8.0, RBC 4.33, Hgb 11.7 L, Hct 36.8 L, MCV 85.0, MCH 27.0, MCHC 31.8 L, RDW Std Deviation 47.0 H, RDW Coeff of Marco 15.3 H, Plt Count 294, MPV 8.5, Immature Gran % (Auto) 0.600, Neut % (Auto) 57.2, Lymph % (Auto) 30.1, [place] % (Auto) 8.8, Eos % (Auto) 2.9, Baso % (Auto) 0.4, Absolute Neuts (auto) 4.6, Absolute Lymphs (auto) 2.42, Nucleated RBC % 0 12/13/20 05:06: Sodium 140, Potassium 4.4, Chloride 109 H, Carbon Dioxide 24.0, Anion Gap 7, BUN 30 H, Creatinine 1.00, Estim Creat Clear Calc 43.27, Est GFR (MDRD) Af Amer 70, Est GFR (MDRD) Non-Af 58 L, BUN/Creatinine Ratio 30.1 H, Glucose 96, Calcium 8.8 12/13/20 06:32: POC Glucose 111 H Micro: Microbiology 12/08/20 21:53 Blood Culture (Wb) - Left Forearm Blood Culture - Preliminary No growth in 48 hours. 12/08/20 19:46 Blood Culture (Wb) - Left Wrist Blood Culture - Preliminary No growth in 48 hours. 12/08/20 23:05 Wound - Left Foot Gram Stain - Final 12/08/20 23:05 Wound - Left Foot Wound Culture - Final Morganella morganii sp morgani Radiography Diagnostic Testing: Radiology Impression Lower Extremity MRI 12/12/20 08:39 IMPRESSION: Motion limited evaluation Acute on chronic extensive midfoot bone destruction (suspected acute on chronic osteomyelitis) Large plantar ulceration with suspected organizing collection/abscess (limited secondary to noncontrast technique) Advanced midfoot degenerative changes Chronic tears at the second through fifth flexor tendons Chronic Lisfranc ligament tear with subluxation Chronic plantar fascial tear Diffuse muscle atrophy/denervation Electronically Signed: Con Faith DO at 11:11 EDT Tel , Service support , Physical Exam Const alert, oriented x3 and no apparent distress Extremity no calf tenderness Extremity Narrative: Left foot: plantar foot ulceration with no evidence of infection, wound is down to bone - it is overall healing and tissues healthy and viable appearing, s/p I+D debridement site dorsal lateral foot healing well - no purulence, no necrosis, no maloder, no fluctuance, no crepitus, and no erythema - cellulitis resolved. No evidence of acute ischemia left foot. No new areas of break down to the left foot or ankle. No calf pain bilateral or evidence of dvt. No evidence of acute charcot neuropathy to the left foot. Chronic rocker-bottom foot deformity noted without laxity or prolonged or, left with prominence plantar and medial. She appears to hear a near 90 degrees ankle dorsiflexion with the knee flexed and extended available however to assess while she is awake and very anxious. This will be reassessed in the operating room. Assessment & Plan Assessment/Plan (1) Cellulitis of left lower limb: (2) 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 evidence of necrosis: (3) Type 2 diabetes mellitus with foot ulcer: (4) Type 2 diabetes mellitus with diabetic polyneuropathy: (5) Abscess of left foot: (6) Peripheral arterial occlusive disease: (7) Osteomyelitis: (8) Charcot's joint of left foot: (9) Equinus contracture of left ankle: PLAN: Re-evaluation performed and I discussed her case this morning. Clinically left foot much improved. She does not have leukocytosis. She is afebrile. Culture results from plantar foot ulcer from wound center include multiorganism growth: morganella, strep viridans, staph simulans, prevotella bivia, actinomyces neuii. MRI with acute on chronic charcot and osteomyelitis and abscess findings. Infectious Disease on consult and appreciated. She continues on IV meropenem at this time. Wound care: Dakin's wet to dry gauze packing to dorsal lateral foot, and dakin's wet to dry gauze plantar ulcer applied this morning. Keep dressing clean, dry and intact otherwise. No weightbearing left foot, keep left foot elevated. We had a discussion that this foot infection is limb and even life-threatening. She has been admitted multiple times for infected left foot. Treatment option including antibiotics and wound care versus amputation were discussed. She is not amendable to having a below the knee amputation signed. I discussed the benefits and goals of incision and drainage which we have performed many times with recurrent scenario versus chopart amputation which is the recommended procedure for both deformity correction and removal of the nidus of recurrent infection. I do not recommend reconstructive Charcot surgery given her cardiac status. Preoperative indications, planned procedure, benefits, risk, anticipated healing time and management were reviewed. The patient understands and elects proceed with surgery at this time. We also discussed the need for care home facility placement after surgery. There certainly are risks associated with having any surgery given her comorbidities. This case was reviewed in detail with hospitalist and nurse practictioner yesterday afternoon who further reviewed the case with Dr. Prescott, circuit board inspector who provided verbal clearance. No guarantees were made. The patient understands risk and complications include but are not limited to following: pain, swelling, scarring, need for further surgery, tendon contracture, transfer lesion, hardware failure, arthritis, need for further surgery, delayed or nonhealing, infection, blood clot, allergic reaction, loss of limb, function, or life. The informed surgical limb and consent will need to be signed for left lower extremity Chopart amputation with possible percutaneous Achilles tendon lengthening. I answered all the patient's questions. Operating room is to be determined this afternoon. It is also noted that cardiology recommended continuation of Plavix during the perioperative time. Aspirin and Lovenox have been held. She is already n.p.o. It is noted she also had recent vascular surgery intervention in the outpatient setting and has optimized perfusion status. Podiatry will continue to follow. Please do not hesitate to call if you have a ny questions. Ivanna Magana DPM, [facility] [phone]
[2020-12-13] MEDS: Pantoprazole Sodium 20 MG Tablet PO ×2 (08:18→21:04)
[2020-12-13] MEDS: amLODIPine 5 MG Tablet PO ×2 (08:18→21:02)
[2020-12-13] MEDS: Carvedilol 25 MG Tablet PO ×2 (08:21→21:00)
[2020-12-13] MEDS: Allopurinol 100 MG Tablet PO (08:21)
[2020-12-13] MEDS: Isosorbide Mononitrate 60 MG Tablet PO (08:22)
[2020-12-13] MEDS: Lisinopril 20 MG Tablet PO ×2 (08:26→20:59)
[2020-12-13 09:03] LABS: International Normalized Ratio 1.2; Prothrombin Time (Protime)PT. 14.1 SECONDS (11.7-14.9)
[2020-12-13] MEDS: tiZANidine HCl 2 MG Tablet 4 MG PO ×2 (09:04→23:56)
--- NOTE | 2020-12-13 09:49 | CASEMGMT ---
Received report that pt is having surgery for partial amputation of foot. TC to [facility] to update on pt status, left message with Klaudia eddy RN.
[2020-12-13] MEDS: morphine (oral solution) 10MG/0.5ML Syringe 6 MG PO ×2 (11:09→20:55)
--- NOTE | 2020-12-13 11:33 | PN.HOSP_ITS ---
Documented by User: Kasandra Perez NP, NURSE WOUND-C 12/13/20 11:44 Subjective Subjective Patient seen and examined. Ambulating in room. Anxious regarding surgery this afternoon. Denies other symptoms or complaints. Objective Data Objective Data Vital Signs: Vital Signs Temp Pulse Resp BP Pulse Ox 98.4 F 73 18 161/70 H 98 12/13/20 09:00 12/13/20 09:00 12/13/20 09:00 12/13/20 09:00 12/13/20 09:00 Oxygen Delivery Method Room Air Weight: 177 lb 0.499 oz Body Mass Index (BMI) 30.4 Intake & Output: Intake and Output for Last 24 Hours 12/11/20 12/12/20 12/13/20 23:59 23:59 23:59 Intake Total 4578.00 / 4578.00 1240 / 1240 240 / 240 Output Total 500 / 500 Balance 4578.00 / 4578.00 740 / 740 240 / 240 Lab / Micro Data Result Diagrams: 12/13/20 05:06 12/13/20 05:06 Labs: Laboratory Results - last 24 hr 12/12/20 11:36: POC Glucose 165 H 12/12/20 16:03: POC Glucose 161 H 12/12/20 21:24: POC Glucose 180 H 12/13/20 05:06: WBC 8.0, RBC 4.33, Hgb 11.7 L, Hct 36.8 L, MCV 85.0, MCH 27.0, MCHC 31.8 L, RDW Std Deviation 47.0 H, RDW Coeff of Marco 15.3 H, Plt Count 294, MPV 8.5, Immature Gran % (Auto) 0.600, Neut % (Auto) 57.2, Lymph % (Auto) 30.1, [place] % (Auto) 8.8, Eos % (Auto) 2.9, Baso % (Auto) 0.4, Absolute Neuts (auto) 4.6, Absolute Lymphs (auto) 2.42, Nucleated RBC % 0 12/13/20 05:06: Sodium 140, Potassium 4.4, Chloride 109 H, Carbon Dioxide 24.0, Anion Gap 7, BUN 30 H, Creatinine 1.00, Estim Creat Clear Calc 43.27, Est GFR (MDRD) Af Amer 70, Est GFR (MDRD) Non-Af 58 L, BUN/Creatinine Ratio 30.1 H, Glucose 96, Calcium 8.8 12/13/20 06:32: POC Glucose 111 H 12/13/20 08:40: PT 14.1, INR 1.2 Micro: Microbiology 12/08/20 21:53 Blood Culture (Wb) - Left Forearm Blood Culture - Preliminary No growth in 48 hours. 12/08/20 19:46 Blood Culture (Wb) - Left Wrist Blood Culture - Preliminary No growth in 48 hours. 12/08/20 23:05 Wound - Left Foot Gram Stain - Final 12/08/20 23:05 Wound - Left Foot Wound Culture - Final Morganella morganii sp morgani Physical Exam Const alert, oriented x3 and no apparent distress Orientation / Consciousness: awake, oriented to person, oriented to place and oriented to time HEENT normocephalic and moist oral mucous membranes Eyes PERRL, EOMs intact bilaterally and conjunctivae normal Neck no lymphadenopathy Resp normal respiratory effort and clear to auscultation bilaterally Cardio regular rate, regular rhythm and no murmurs Peripheral Pulses: pulses 2+ throughout GI normal to inspection, nondistended, normoactive bowel sounds, non-tender and non-distended Extremity normal to inspection Skin no rashes or lesions noted Skin Narrative: Left foot dressing intact. Lesions: no lesions Rashes: no rashes Trauma: no lacerations or abrasions Neuro CN's II-XII intact bilaterally, no focal motor deficits, no sensory deficits noted and deep tendon reflexes 2+ bilaterally Psych mental status grossly normal and affect normal Assessment & Plan Assessment/Plan (1) Abscess of left foot: PLAN: 1. Acute, recurrent infected diabetic left foot ulcer with abscess and acute on chronic osteomyelitis, underlying charcot deformity-podiatry consulted. Bedside I&D completed. Cultures growing morganella. IV meropenem. Pr ior cultures grew strep agalactiae, Staphylococcus caprae, Enterococcus and anaerobic cocci. Wound RN consult. Continue dressing changes as ordered. PT/OT. ID consult. MRI shows osteo and abscess. Plan for OR this afternoon for chopart amputation. Cleared for surgery from medical/cardiac standpoint. Will likely need rehab. 1. CAD with history of CABG and stents- Prior heart cath November 2018 which demonstrated mid RCA lesion 65% stenosis, FFR was done with no PCI. Stress echo June 2019 negative for ischemia. September 14 patient had non-ST elevation myocardial infarction with left circumflex coronary artery in-stent restenosis and underwent repeat PTCA/stent. She additionally underwent PTCA to proximal OM1. Echocardiogram August 2020 demonstrated an EF of 70%. Continue medical management including aspirin, Plavix, carvedilol, statin, isosorbide. 3. Chronic kidney disease stage IIIa-at baseline, trend BMP. 4. Type 2 diabetes mellitus- Continue home insulin regimen. Accu-Cheks with sliding scale insulin. Reports neuropathy pain, worse at bedtime. Refusing gabapentin. 5. Hypertension-stable, continue Norvasc, Coreg, lisinopril, isosorbide. 6. GERD-continue PPI. 7. Hypothyroidism-continue Synthroid. 8. PVD-continue aspirin, Plavix, statin. 9. Chronic microcytic anemia/iron deficiency anemia-stable. 10. Anxiety-uses CBD oil as needed. 11. Chronic severe malnutrition-dietitian consult. As evidenced by muscle and fat loss, poor oral intake and recent weight loss. DVT prophylaxis- Lovenox sc This patient was seen by Kasandra Perez NP-C under the supervision of Dr. Salazar. Documented by User: Dr. Vicki Salazar MD 12/13/20 14:56 Objective Data Lab / Micro Data Result Diagrams: 12/13/20 05:06 12/13/20 05:06 Charges/Coding Addendum Addendum: This patient was seen in conjunction with Kasandra Perez. I have independently interviewed and examined the patient and reviewed pertinent historical, laboratory, and other data. I have reviewed her note and concur with her documentation Patient was seen and examined. Patient is for surgery by podiatry today - Chopart amputation with possible percutaneous Achilles tendon lengthening. Her blood pressure remains uncontrolled. Physical Exam: Gen: Comfortable, not pale, not jaundiced CVS:HS I +II, regular, no murmurs RESP: Diminished at lung bases GI: BS present and normal, soft, nontender, no palpable organs EXT:No edema, left foot is wrapped Arjun wraps ASSESSMENT: 1. Acute on chronic left mid foot osteomyelitis/abscess 2. Type II DM 3. CKD stage IIIa 4. CAD status post CABG, status post stents 5. Hypertension 6. Hypothyroidism 7. GERD 8. PAD 9. Iron deficiency anemia Plan: Continue meropenem Continue per podiatry recommendations Add hydralazine 25 mg p.o. twice daily Visit Charges Inpatient E&M: 92121 Subs Hosp L2
[2020-12-13 12:07] LABS: Hemoglobin A1c 7.5 % (3.8-5.6)
[2020-12-13 12:08] LABS: Thyroid Stim Hormone (TSH) 1.35 uIU/mL (0.358-3.74)
[2020-12-13 12:10] LABS: Bedside Glucose 106 mg/dL (70-110)
--- NOTE | 2020-12-13 14:25 | RAD_ITS ---
STUDY: X-RAY - LEFT FOOT CLINICAL: Female, 75 years old. CHOPART AMPUTATION WITH POSS ACHILLES TENDON TECHNIQUE: 2 fluoroscopic view(s) of the foot. Dose area product: 1.26 cGycm2 COMPARISON: None. FINDINGS: Intraoperative fluoroscopy during proximal/mid foot (just beyond the tarsonavicular) amputation. RAD/Foot 2 Views IMPRESSION: Fluoroscopic guidance for foot amputation. Electronically Signed: Ralph Coates MD (Brooks) at 15:33 EDT , Service support ,
--- NOTE | 2020-12-13 14:35 | FOOT_PTH ---
PATIENT: SEBASTIÁN REYES LOC: MS3 U#:[id number] AGE/SX: 75/F ROOM: [facility] [place] RE12/08/[address]: Dr. Vicki Salazar MD : 1945 BED: 1 DIS: 12/14/2020 SPEC #: [id number] RECD: 12/13/20 15:37 STATUS: FER REMonica #: [id number] HANSEL: 12/13/20 14:[address]: Ivanna Magana DEPT: SURGICAL PATHOLOGY RECD BY: Lupe Antonio ENTERED: 12/14/20 09:31 SP TYPE: FOOT OTHR DR: MD Dr. Con Beverly MD Dr. Jeffrey Wunning, SONALM MD Dr. Adam Chong MD Tissues: Foot, NOS Procedures: Decalcification bone/plaque Surgery Specimen Level V Comments: @ Ordering doctor for DEC edited from to DR.JFASCI Almita FOURNIER at 12/14/20 140 @ Ordering doctor for SUV edited from to @ by IRLANDA at 12/14/20 1405 @ Submitting doctor edited from to DR.JFASCI Almita FOURNIER at 12/14/20 1402 HEADER OPERATION: Chopart amputation PRE-OP DIAGNOSIS: Osteomyelitis TISSUE SUBMITTED: Left foot soft tissue and bone MICROSCOPIC DIAGNOSIS Left foot soft tissue and bone, excision: Skin and soft tissue with ulceration and associated acute and chronic inflammation and granulation. Bone with chronic osteomyelitis and reactive and reparative change. AM:debbi 12/19/2020 MICROSCOPIC DESCRIPTION Slides are reviewed. GROSS DESCRIPTION Received in fixative is one container labeled with the patient's name and designated left foot soft tissue and bone. The specimen consists of a portion of foot consisting of five toes and distal portion of the foot measuring 16 x 9 x 3 cm. The nails are present in all five toes and appears unremarkable. Also present in the container are four variable sized pieces of skin with underlying tissue and soft tissue measuring in aggregate 6 x 6 x 2 cm. A piece of skin with underlying tissue shows focal area of ulceration measuring 1 cm in greatest dimension. Area of ulceration is not seen in the portion of the specimen consisting of foot. Hospitalist Program Director sections are submitted in six cassettes as follows: 1 & 2 ? area of ulceration and detached pieces of tissue, 3-6 ? bone from the foot after decalcification. / CANDIE:debbi 12/14/20 TC:3 CPT: 02891, 68276
[2020-12-13] MEDS: Bupivacaine Mpf 0.5% 30 ML VIAL (16:00)
[2020-12-13] MEDS: Lidocaine 1% (30 ml sdv) 30 ML Vial (16:00)
--- NOTE | 2020-12-13 16:04 | OP.PCM_ITS ---
Problems Associated Problem List Diagnoses (1) Abscess of left foot: (2) Type 2 diabetes mellitus with diabetic polyneuropathy: (3) Charcot's joint of left foot: (4) Osteomyelitis of left foot: Report of Operation Date of Procedure: 12/13/20 Pre-Operative Diagnosis: Left foot Charcot Left foot chronic ulcer with recent abscess Left midfoot osteomyelitis Post-Operative Diagnosis: Left foot Charcot Left foot chronic ulcer with recent abscess Left midfoot osteomyelitis Surgery/Procedure Performed:: Modified Chopart amputation left foot Description of Surgical Findings:: Hemostasis: Well-padded pneumatic mid leg tourniquet, 250 mmHg, 30 minutes Materials: 2-0 Vicryl and 2-0 nylon Findings: Fragmented, discolored and degenerated midfoot bones that are intermittently sclerosed and soft. No purulence, necrosis or infection at the level of amputation Specimens sent Complications: None The patient tolerated the procedure and anesthesia well. The patient was transported to the PACU with vital signs stable and vascular status intact to the surgical limb. To ice and elevate for pain and inflammation management. Postoperative x-rays were reviewed prior to leaving the operating room. 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 No foreign body or acute injuries are noted. Postoperative orders were entered electronically. She will be transferred back to the medical surgical floor this afternoon. Surgeon: Ivanna Magana quality assurance lead: None (Avila Díaz DPM, PGY1) Type of Anesthesia: General (LMA) and Local (Preoperative: 18 cc of one-to-one mixture of 1% lidocaine plain and 0.5% Marcaine plain administered in typical left ankle block fashion. Postoperative: 5 cc of the same mixture administered in additional ankle block fashion) Specimen's removed: 1. Left foot soft tissue and bone sent to pathology 2. Post debridement irrigation culture sent to microbiology including aerobic, anaerobic, and MRSA PCR Drains: none Estimated Blood Loss (mL): 150 mL Description of Procedure: Indications: This 75-year-old female with multiple comorbidities including diabetic neuropathy, hypertension, dementia, obesity, history of anemia, GERD, history of kidney injury, coronary artery disease, h/o myocardial infarction, h/o stroke, iron deficiency, and recurrent foot ulcers, infections, and surgeries had recent deterioration of left foot status. Recent presentation included nonhealing chronic left foot ulcer with recurrent infection including sepsis with multiple hospital admissions, Charcot chronic midfoot deformity, and recent adjacent gas infection to the dorsal midfoot. Her ulcer site did probe directly to the plantar bone mass of the midfoot. She had initial bedside I&D to alleviate her gas infection to the dorsal lateral foot upon admission. She has had multiple MRIs over the past year to evaluate Charcot versus osteomyelitis and now has progressive bone changes consistent with osteomyelitis. She has elevated ESR 56. She did not have leukocytosis at the time of admission. She did have purulent drainage with the incision and drainage and is medically stabilized during this admission. She continues on Plavix due to her cardiac disease. Her initial foot x-ray is consistent with her chronic Charcot rocker-bottom foot with concern of overlying osteomyelitis as well. She has multiorganism growth with all wound cultures. Infectious disease is on consultation and she is on IV meropenem. Her blood cultures are negative so far. The preoperative indications, planned procedure, possible benefits, risks, complications, and anticipated healing time management. I discussed her surgical plan in detail with the patient. They understand and elect to proceed with surgery at this time. Informed surgical consent and the surgical limb were signed. A chopart amputation was selected to optimize a semi-functional foot for very limited ambulation and transfers, and to remove all infected and non viable tissue. She understands the need for a percutaneous Achilles tendon will be performed in the operating room if there is any equinus. We discussed below- knee amputation as an option as well but due to her low cardiac output and suspected increased cardiac demand to below-knee amputation this was not selected at this time. The patient also refused to have a below-knee amputation. We both feel she has exhausted palliative wound care due to her multiple hospital admissions and infections. She understands the potential complications include but are not limited to the following: Pain, swelling, scarring, delayed or nonhealing, need for revisional surgery, blood clots, allergic reaction, transfer lesion, continued deformity, possible loss of limb, function, or life. Preoperative medical optimization was assisted by the hospitalist team and her comorbidities are allergies are noted. She was advised to continue on Plavix per cardiology. All of her preoperative diagnostic data was reviewed. Procedure in detail: The patient was transported to the operating room via cart and placed on the operating table in the supine position. Final verification the patient, surgery, limb designation was performed via the timeout procedure. Local preoperative anesthesia was administered as noted above by the podiatry team. LMA was initiated by the anesthesia team. It is noted she is already receiving antibiotics intravenously on the medical floor. A well-padded pneumatic left mid calf tourniquet was placed. The left lower extremity was prepped and draped in the usual aseptic manner. An Esmarch bandage was used to exsanguinate the limb and the tourniquet was inflated at this time. Surgery began as a following: Attention was first directed to the dorsal aspect of the left foot which an incision was made directly down to bone in a fishmouth manner to the midfoot. Care was taken to identify, protect, and retract all neurovascular structures throughout the entire procedure. Next, the soft tissue was skeletonized off of the midfoot bones and the navicular cuneiform and calcaneal cuboid joints were disarticulated. All nonviable tissue was removed from the table. This was sent to pathology. The open amputation site was copiously irrigated with normal saline. Care was taken to excise the plantar skin ulcer with a wedge to avoid using this previously infected tissue in the flap. Clean gloves, instruments, and drapery was next applied. Intraoperative fluoroscopy exam was performed to confirm the amputation level and no acute injuries were noted. Next, all tendons were pulled to length and resected. Any nonviable tissue or avascular soft tissue structures were carefully removed from the plantar flap and this was mobilized. The tourniquet was deflated at this time and brisk capillary refill time was noted to both the dorsal and the plantar flap. Hemostasis was controll ed with direct pressure and electrocauterization and nylon suture tie. No pulsatile bleeding was appreciated at this time. Next the flap was reapproximated in a non-tension manner utilizing no touch technique in which limited Vicryl was used for deep closure. Next, complex skin closure was further completed with nylon sutures. This was used to reapproximate the skin edges and the flap were remodeled and gently everted utilizing vertical and horizontal mattress and simple suture techniques. At this time the patient's lower extremity was assessed with the Silverskold test. Her ankle dorsiflexion was approximately +8 degrees with the knee extended and 10 with the knee bent. Therefore tendon lengthening procedure was not performed at this time. A postoperative injection was administered at this time as noted above. A postoperative dressing consisting of Adaptic soaked in Betadine, gauze, abdominal pads, Kerlix, and Arjun wrap was applied. After procedure: The patient tolerated the procedure and anesthesia well. She was transferred to the PACU with vital signs stable and vascular status intact the left lower extremity. She will be transferred back to the medical surgical floor upon continued stability. She was advised to continue with strict nonweightbearing to the left lower extremity and to keep her dressing clean, dry, and intact. Microbiology and pathology specimens are pending. To continue on IV antibiotics under the management of infectious disease; meropenem. To continue DVT prophylaxis and medical management per primary team. To elevate and ice for postoperative pain and inflammation management. I recommend [facility] facility placement and this is pending. I will follow her closely while in house. Postoperative orders were entered electronically. Ivanna Magana DPM, [facility] Complications none Admit VTE Documentation VTE Present on Admission: No VTE Mechan Device Prophylaxis: SCD's VTE Pharm Prophylaxis ordered?: Yes
[2020-12-13 16:16] LABS: Bedside Glucose 70 mg/dL (70-110)
[2020-12-13 17:02] LABS: M R Staph aureus DNA By PCR Negative (Negative); Specimen Processing Control PASS; Staph aureus DNA By PCR NEGATIVE (Negative)
[2020-12-13 17:03] LABS: Probe Check PASS
[2020-12-13] MEDS: hydrALAZINE 25 MG Tablet PO (20:57)
[2020-12-13] MEDS: guaiFENesin 600 MG Tablet PO (20:57)
[2020-12-13] MEDS: Creon 24,000 unit DR Capsule 1 CAP PO (20:58)
[2020-12-13] MEDS: Calcium (Elemental) 500 MG Tablet 250 MG PO (21:03)
[2020-12-13] MEDS: Pravastatin 40 MG Tablet PO (21:04)
[2020-12-13] MEDS: Levothyroxine 75 MCG Tablet PO (21:05)
[2020-12-13] MEDS: Insulin Lispro 100 UNIT/ML INSULN.PEN SC (21:58)
[2020-12-14] VITALS (7 sets, daily range): BP systolic 104–130; BP diastolic 43–78; PULSE 79–81; RESP 16–18; TEMP 36.7–37.2; O2SAT 96–98; BMI 30.4
[2020-12-14] MEDS: traZODone 100 MG Tablet PO ×2 (02:27→22:06)
[2020-12-14] MEDS: morphine (oral solution) 10MG/0.5ML Syringe 6 MG PO (03:03)
[2020-12-14] MEDS: Acetaminophen 325 MG Tablet 650 MG PO ×2 (03:03→13:35)
[2020-12-14 06:56] LABS: Bedside Glucose 90 mg/dL (70-110)
[2020-12-14 07:18] LABS: Absolute Lymphocyte Count 2.19 X10^3/uL (0.83-4.51); Absolute Neutrophil Count 4.6 X10^3/uL (2.0-7.7); Basophil# 0.04 X10^3/uL; Basophil% 0.5 % (0-1); Eosinophil# 0.27 X10^3/uL; Eosinophils% 3.4 % (0-5); Hematocrit 30.9 % (37-47); Hemoglobin 9.5 g/dL (12.0-15.0); Lymphocyte # 2.19 X10^3/ul (0.83-4.51); Lymphocyte % 27.9 % (19-41); Mean Corp Hgb Conc 30.7 g/dL (32-36); Mean Corpuscular Hgb 27.1 pg (27.0-32.0); Mean Platelet Vol. 8.7 fl (6.2-12.0); Monocyte# 0.69 X10^3/uL; Monocyte% 8.8 % (0-10); NRBC Flagged by Analyzer 0 % (0-5); Neutrophil # 4.63 X10^3/uL (2.7-7.7); Neutrophil % 58.9 % (47-70); Platelet Count 216 K/mm3 (150-450); RBC Distribution Width CV 15.4 % (11.6-14.6); RBC Distribution Width SD 49.8 fl (35.1-43.9); Red Blood Count 3.51 M/mm3 (4.2-5.4); White Blood Count 7.9 K/mm3 (4.4-11.0)
--- NOTE | 2020-12-14 07:22 | PCM.PROGNOTE ---
Subjective Subjective This patient was seen postoperative day #1 left Chopart amputation for treatment of osteomyelitis, recurrent abscess, and Charcot deformity. She denies fever, chill, nausea, vomiting, shortness of breath, chest pain. Her pain is rated as an 8 out of 10. Objective Data Objective Data Vital Signs: Vital Signs Temp Pulse Resp BP Pulse Ox 98.8 F 79 16 130/70 H 96 12/14/20 05:00 12/14/20 05:00 12/14/20 05:00 12/14/20 05:00 12/14/20 05:00 Oxygen Flow Rate (L/min) 2 Oxygen Delivery Method Room Air Weight: 80.3 kg Body Mass Index (BMI) 30.4 Intake & Output: Intake and Output for Last 24 Hours 12/12/20 12/13/20 12/14/20 23:59 23:59 23:59 Intake Total 1240 / 1240 360 / 660 1020 / 1020 Output Total 500 / 500 500 / 800 800 / 800 Balance 740 / 740 -140 / -140 220 / 220 Lab / Micro Data Result Diagrams: 12/14/20 07:10 12/13/20 05:06 Labs: Laboratory Results - last 24 hr 12/13/20 05:06: TSH 1.35 12/13/20 05:06: Hemoglobin A1c 7.5 H 12/13/20 08:40: PT 14.1, INR 1.2 12/13/20 12:03: POC Glucose 106 12/13/20 15:30: S.aureus Protein A PCR NEGATIVE, MRSA (PCR) Negative 12/13/20 16:13: POC Glucose 70 12/14/20 06:49: POC Glucose 90 12/14/20 07:10: WBC 7.9, RBC 3.51 L, Hgb 9.5 L, Hct 30.9 L, MCV 88.0, MCH 27.1, MCHC 30.7 L, RDW Std Deviation 49.8 H, RDW Coeff of Marco 15.4 H, Plt Count 216, MPV 8.7, Immature Gran % (Auto) 0.500, Neut % (Auto) 58.9, Lymph % (Auto) 27.9, [place]ander % (Auto) 8.8, Eos % (Auto) 3.4, Baso % (Auto) 0.5, Absolute Neuts (auto) 4.6, Absolute Lymphs (auto) 2.19, Nucleated RBC % 0 Micro: Microbiology 12/08/20 21:53 Blood Culture (Wb) - Left Forearm Blood Culture - Preliminary No growth in 48 hours. 12/08/20 19:46 Blood Culture (Wb) - Left Wrist Blood Culture - Preliminary No growth in 48 hours. 12/08/20 23:05 Wound - Left Foot Gram Stain - Final 12/08/20 23:05 Wound - Left Foot Wound Culture - Final Morganella morganii sp morgani Physical Exam Const alert, oriented x3 and no apparent distress Extremity no calf tenderness Extremity Narrative: Left foot: Status post Chopart amputation with sutures intact without gapping or necrosis. There is no dusky formation at the amputation margins. There is no fluctuance or bogginess. No odor erythema or streaking or purulence. Negative Claudio and Elizondo sign left. Compartments remain soft to palpate left lower extremity Assessment & Plan Assessment/Plan (1) Abscess of left foot: (2) Type 2 diabetes mellitus with diabetic polyneuropathy: (3) Charcot's joint of left foot: (4) Osteomyelitis of left foot: PLAN: Re-evaluation performed and I discussed her case this morning. Clinically her amputation site appears stable without local signs of infection. It is noted that at the amputation level and surgery there was no evidence of infection or necrosis. She does not have leukocytosis. She is afebrile. Previous culture results from plantar foot ulcer from wound center include multiorganism growth: morganella, strep viridans, staph simulans, prevotella bivia, actinomyces neuii. MRI with acute on chronic charcot and osteomyelitis and abscess findings. Infectious Disease on consult and appreciated. She continues on IV meropenem at this time. Wound care: Betadine wet-to-dry dressing was reapplied with gauze abdominal pads and Kerlix and Arjun wrap. Keep dressing clean, dry and intact otherwise. No weightbearing left foot, keep left foot elevated. To use assistive device and work with PT and OT. It is noted she also had recent vascular surgery intervention in the outpatient setting and has optimized perfusion status. Pain medication adjustments were ordered. To ice and elevate for pain and inflammation management as well. Podiatry will continue to follow. I recommend [facility] facility [facility]. Please do not hesitate to call if you have any questions. Ivanna Magana DPM, [facility] [phone]
[2020-12-14] MEDS: Multivitamins,Ther W-Minerals Tablet 1 TABLET PO (08:24)
[2020-12-14] MEDS: hydrALAZINE 25 MG Tablet PO ×2 (08:24→20:57)
[2020-12-14] MEDS: Aspirin E.C. 81 MG Tablet PO (08:25)
[2020-12-14] MEDS: Creon 24,000 unit DR Capsule 1 CAP PO ×2 (08:25→20:55)
[2020-12-14] MEDS: Carvedilol 25 MG Tablet PO ×2 (08:25→20:57)
[2020-12-14] MEDS: Loratadine 10 MG Tablet PO (08:25)
[2020-12-14] MEDS: Enoxaparin 40 MG/0.4 ML Syringe SC (08:26)
[2020-12-14] MEDS: Isosorbide Mononitrate 60 MG Tablet PO (08:26)
[2020-12-14] MEDS: amLODIPine 5 MG Tablet PO ×2 (08:26→20:56)
[2020-12-14] MEDS: Pantoprazole Sodium 20 MG Tablet PO ×2 (08:27→20:54)
[2020-12-14] MEDS: Calcium (Elemental) 500 MG Tablet 250 MG PO ×2 (08:27→20:55)
[2020-12-14] MEDS: Lisinopril 20 MG Tablet PO ×2 (08:27→20:54)
[2020-12-14] MEDS: Clopidogrel Bisulfate 75 MG Tablet PO (08:27)
[2020-12-14] MEDS: Allopurinol 100 MG Tablet PO (08:27)
[2020-12-14] MEDS: guaiFENesin 600 MG Tablet PO ×2 (08:27→20:56)
[2020-12-14] MEDS: oxyCODONE 5 MG Tablet PO ×3 (08:30→20:54)
[2020-12-14] MEDS: tiZANidine HCl 2 MG Tablet 4 MG PO ×2 (08:30→18:29)
--- NOTE | 2020-12-14 10:49 | PCM.PN.HOSP ---
Documented by User: Kasandra Perez NP, ASSISTANT TO THE VICE PRESIDENT-C 12/14/20 10:59 Subjective Subjective Patient seen and examined. Reports significant worsening of pain overnight. Pain now better controlled. Denies other symptoms or complaints. Amendable to rehab at discharge. Objective Data Objective Data Vital Signs: Vital Signs Temp Pulse Resp BP Pulse Ox 99.0 F 79 18 114/78 96 12/14/20 08:19 12/14/20 08:24 12/14/20 08:19 12/14/20 08:24 12/14/20 08:19 Oxygen Flow Rate (L/min) 2 Oxygen Delivery Method Room Air Weight: 177 lb 0.499 oz Body Mass Index (BMI) 30.4 Intake & Output: Intake and Output for Last 24 Hours 12/12/20 12/13/20 12/14/20 23:59 23:59 23:59 Intake Total 1240 / 1240 360 / 660 1140 / 1140 Output Total 500 / 500 500 / 800 800 / 800 Balance 740 / 740 -140 / -140 340 / 340 Lab / Micro Data Result Diagrams: 12/14/20 07:10 12/13/20 05:06 Labs: Laboratory Results - last 24 hr 12/13/20 05:06: TSH 1.35 12/13/20 05:06: Hemoglobin A1c 7.5 H 12/13/20 12:03: POC Glucose 106 12/13/20 15:30: S.aureus Protein A PCR NEGATIVE, MRSA (PCR) Negative 12/13/20 16:13: POC Glucose 70 12/14/20 06:49: POC Glucose 90 12/14/20 07:10: WBC 7.9, RBC 3.51 L, Hgb 9.5 L, Hct 30.9 L, MCV 88.0, MCH 27.1, MCHC 30.7 L, RDW Std Deviation 49.8 H, RDW Coeff of Marco 15.4 H, Plt Count 216, MPV 8.7, Immature Gran % (Auto) 0.500, Neut % (Auto) 58.9, Lymph % (Auto) 27.9, [place] % (Auto) 8.8, Eos % (Auto) 3.4, Baso % (Auto) 0.5, Absolute Neuts (auto) 4.6, Absolute Lymphs (auto) 2.19, Nucleated RBC % 0 Micro: Microbiology 12/08/20 21:53 Blood Culture (Wb) - Left Forearm Blood Culture - Preliminary No growth in 48 hours. 12/08/20 19:46 Blood Culture (Wb) - Left Wrist Blood Culture - Preliminary No growth in 48 hours. 12/08/20 23:05 Wound - Left Foot Gram Stain - Final 12/08/20 23:05 Wound - Left Foot Wound Culture - Final Morganella morganii sp morgani Physical Exam Const alert, oriented x3 and no apparent distress Orientation / Consciousness: awake, oriented to person, oriented to place and oriented to time HEENT normocephalic and moist oral mucous membranes Eyes PERRL, EOMs intact bilaterally and conjunctivae normal Neck no lymphadenopathy Resp normal respiratory effort and clear to auscultation bilaterally Cardio regular rate, regular rhythm and no murmurs Peripheral Pulses: pulses 2+ throughout GI normal to inspection, nondistended, normoactive bowel sounds, non-tender and non-distended Extremity normal to inspection Skin no rashes or lesions noted Skin Narrative: Left foot wound, postoperative dressing intact. Lesions: no lesions Rashes: no rashes Trauma: no lacerations or abrasions Neuro CN's II-XII intact bilaterally, no focal motor deficits, no sensory deficits noted and deep tendon reflexes 2+ bilaterally Psych mental status grossly normal and affect normal Assessment & Plan Assessment/Plan (1) Osteomyelitis of left foot: PLAN: 1. Acute, recurrent infected diabetic left foot ulcer with abscess and acute on chronic osteomyelitis, underlying charcot deformity-podiatry consulted. Bedside I&D completed. Cultures growing morganella, strep viridans, prevotella, actinomyces. IV meropenem. Post op cultures pending. Wound RN consult. Continue dressing changes as ordered. PT/OT. ID consult. MRI shows osteo and abscess. 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 Will likely need SNF. Nonweightbearing left foot. 1. CAD with history of CABG and stents- Prior heart cath November 2018 which demonstrated mid RCA lesion 65% stenosis, FFR was done with no PCI. Stress echo June 2019 negative for ischemia. September 14 patient had non-ST elevation myocardial infarction with left circumflex coronary artery in-stent restenosis and underwent repeat PTCA/stent. She additionally underwent PTCA to proximal OM1. Echocardiogram August 2020 demonstrated an EF of 70%. Continue medical management including aspirin, Plavix, carvedilol, statin, isosorbide. 3. Chronic kidney disease stage IIIa-at baseline, trend BMP. 4. Type 2 diabetes mellitus- Continue home insulin regimen. Accu-Cheks with sliding scale insulin. Reports neuropathy pain, worse at bedtime. Refusing gabapentin. 5. Hypertension-stable, continue Norvasc, Coreg, lisinopril, isosorbide. 6. GERD-continue PPI. 7. Hypothyroidism-continue Synthroid. 8. PVD-continue aspirin, Plavix, statin. 9. Chronic microcytic anemia/iron deficiency anemia-stable. 10. Anxiety-uses CBD oil as needed. 11. Chronic severe malnutrition-dietitian consult. As evidenced by muscle and fat loss, poor oral intake and recent weight loss. DVT prophylaxis- Lovenox sc Discharge plan: We will likely need SNF. Await further recommendations per ID. This patient was seen by ADDISON GraysonC under the supervision of Dr. Salazar. Documented by User: Dr. Vicki Salazar MD 12/14/20 15:35 Objective Data Lab / Micro Data Result Diagrams: 12/14/20 07:10 12/13/20 05:06 Charges/Coding Addendum Addendum: This patient was seen in conjunction with Kasandra Perez. I have independently interviewed and examined the patient and reviewed pertinent historical, laboratory, and other data. I have reviewed her note and concur with her documentation Patient was seen and examined. She complains of uncontrolled pain. Her blood pressures are better Physical Exam: Gen: Comfortable, not pale, not jaundiced CVS:HS I +II, regular, no murmurs RESP: Diminished at lung bases GI: BS present and normal, soft, nontender, no palpable organs EXT:No edema, left foot is wrapped Arjun wraps ASSESSMENT: 1. Acute on chronic left mid foot osteomyelitis/abscess 2. Type II DM 3. CKD stage IIIa 4. CAD status post CABG, status post stents 5. Hypertension 6. Hypothyroidism 7. GERD 8. PAD 9. Iron deficiency anemia Plan: Continue meropenem Continue per podiatry and ID recommendations Multi Select Codes Visit Charges Visit Charges: 80848 Subs Hosp L2
[2020-12-14] MEDS: Insulin Lispro 100 UNIT/ML INSULN.PEN SC (11:20)
[2020-12-14] MEDS: DAKIN'S SOL HALF STRENGTH (=0.25%) 1 APPLIC TOPICAL (11:23)
[2020-12-14 11:36] LABS: Bedside Glucose 264 mg/dL (70-110)
--- NOTE | 2020-12-14 12:15 | CASEMGMT ---
Social Work Note SW spoke with PT/OT, physically pt can discharge home. SW did speak to [facility] with RU yesterday, pt doesn't have qualifying dx for Rehab Unit. SW in to speak with pt. BARRY introduced self and role at [facility]. SW spoke with pt about discharge plans. Pt confirms PT/OT told her that she can discharge home, and first choice is for pt to return home but states whatever the doctor recommends I will do. Patient was provided a list of SNF providers including quality and resource use data and consistent with the patient?s preferred geographic region, medical needs, and insurance network. Physician in to room and does recommend SNF placement. Pt agreeable to SNF, first choice is [facility] TCU. BARRY explained this worker will need to check on bed availability on TCU, will let pt know. BARRY placed a call to [facility] with TCU and left message regarding referral. SW waiting for call back. Plan: TCU pending acceptance Shabnam Merino MAINTENANCE TECHNICIAN 2ND SHIFT, HYDRAULIC JACK ADJUSTER
--- NOTE | 2020-12-14 13:16 | CASEMGMT ---
Addendum entered by Shabnam Merino 12/14/20 17:07: Pt will be discharged on IV antibiotics. SW placed a call to [facility] with TCU, Pt will need to get PICC placed before pt can discharge to TCU. PA updated. RN and home energy rater updated that once pt gets PICC line, pt is able to discharge to TCU today. Plan: TCU today after PICC gets placed. Original Note: Social Work Note SW received call from Helen with TCU stating TCU is able to accept pt. SW updated PA, waiting for ID recommendations. SW in to speak with pt. SW updated pt that TCU is able to accept pt when pt is medically cleared. Pt states understanding. Plan: TCU when medically cleared Shabnam Merino METAL TILE SETTER, CASE MANAGEMENT ASSISTANT
--- NOTE | 2020-12-14 14:31 | PCM.TXEXTCAR ---
Documented by User: Kasandra Perez NP, [employer] 12/14/20 15:58 Diet 12/09/20 15:21 Diet: Carbohydrate Controlled Food consistency:: Regular Liquid Consistency:: Regular/Thin Dietary Modifications:: Cardiac / Heart Healthy Type of Dietary Supplement:: Blue Is pt able to select menu?: Yes Diet Comments: Blue BID w/ breakfast and dinner Routine Orders/Code Status Enema Type: Fleetz Enema Frequency: Daily PRN Suppository Type: Dulcolax 10mg Suppository Frequency: Daily PRN Routine Lab Work: - (CBC, BMP weekly) Code Status: Full Code Wound(s) left anterior foot: Wound Type: Neuropathic/Diabetic Foot Ulcer left lateral foot: Wound Type: Surgical Incision Dressing Change: Dakins moistened nugauze left plantar foot: Wound Type: Surgical Incision Dressing Change: Dakins moistened nugauze packing left foot: Wound Type: Surgical Incision Suggestions for Active Care Change Position every (hours): 2 Times a day to sit in chair: 3 Therapies Weight Bearing: Non weight bearing (LLE) Physical Therapy: Eval and Treat Occupational Therapy: Eval and Treat Problem/Diagnosis (1) Abscess of left foot: Status: Acute (2) Type 2 diabetes mellitus with diabetic polyneuropathy: Status: Acute (3) Charcot's joint of left foot: Status: Chronic (4) Osteomyelitis of left foot: Status: Acute Allergies/Procedures Done in Hospital Allergies doxycycline Allergy (Severe, Verified 12/08/20 17:34) all over body hives and itching atorvastatin calcium [From Lipitor] Allergy (Verified 12/08/20 17:34) Unknown bupropion HCl [From Wellbutrin] Allergy (Verified 12/08/20 17:34) Unknown mannitol [From Reclast] Allergy (Verified 12/08/20 17:34) joint pain, unable to breathe, unable to walk propoxyphene napsylate [From Darvocet-N 100] Allergy (Verified 12/08/20 17:34) Unknown Quinolones Allergy (Verified 12/08/20 17:34) Unknown Tetanus Vaccines and Toxoid [Tetanus Vaccines & Toxoid] Allergy (Verified 12/08/20 17:34) Chest tightness tizanidine Allergy (Verified 12/08/20 17:34) Unknown zoledronic acid [From Reclast] Allergy (Verified 12/08/20 17:34) joint pain,unable to breathe, unaable to walk JOINT PAIN,UNABLE TO BREATHE,UNABLE TO WALK pravastatin Adverse Reaction (Severe, Verified 12/08/20 17:34) Myalgias gemfibrozil Adverse Reaction (Intermediate, Verified 12/08/20 17:34) Unknown NSAIDS (Non-Steroidal Anti-Inflamma Adverse Reaction (Verified 12/08/20 17:34) Other Procedures: - ( Modified Chopart amputation left foot) Type of Care/Length of Stay Estimated LOS: Convalescent Care Less Than 30 days Type of Care Needed: Skilled Rehab Potential: Fair Prognosis: Fair Additional Orders/Day of Discharge H&P will serve as current which was dated: 12/08/20 Day of Discharge: 12/14/20 Dietary and Speech Recommendations Dietitian Recommendations/Changes: Continue Carbohydrate-Controlled/Cardiac (no caloric restriction). Continue Blue with meals BID at breakfast and dinner. Diet education as pt willing--HgbA1C 7.5% yesterday. Discharge Plan Admission Admit Date/Time: 12/08/20 22:13 Attending Provider: Vicki Salazar Primary Care Provider: Con Johnson Consulting Providers: Nicholas Espino ; Adam Webb Instructions Additional Instructions / Restrictions: Consult podiatry, Dr. Magana and wound RN at TCU. Recommend follow-up with wound center at discharge. Discharge Orders/Prescriptions Prescriptions: New Lantus Solostar U-100 Insulin 100 unit/mL (3 mL) Insulin Pen 25 unit subcut BID Qty: 0 RF: 0 lisinopril 20 mg Tablet 20 mg PO BID Qty: 0 RF: 0 oxycodone 5 mg Tablet 5 mg PO Q6H PRN PRN (Reason: Pain Score 6-10) Qty: 0 RF: 0 meropenem 1 gram recon soln 1 g IV Q8H Qty: 1 RF: 0 Continued Creon 24,000-76,000 -120,000 unit capsule,delayed release(DR/EC) 1 cap PO BID RF: 0 cbd 1 dose PO 4X/DAY PRN (Reason: pain/1500) RF: 0 aspirin [Adult Low Dose Aspirin] 81 mg tablet,delayed release (DR/EC) 81 mg PO DAILY RF: 0 pravastatin 40 MG tablet 40 mg PO QHS RF: 0 allopurinol 100 MG tablet 100 mg PO DAILY RF: 0 calcium citrate 200 MG tablet 200 mg PO BID Qty: 0 RF: 0 levothyroxine 75 MCG tablet 75 mcg PO QHS RF: 0 venlafaxine 100 MG tablet 100 mg PO BID RF: 0 trazodone 100 MG tablet 100 mg PO QHS PRN (Reason: Sleep) RF: 0 metoclopramide HCl 10 MG tablet 10 mg PO Q8H PRN (Reason: Nausea) RF: 0 yjijsdkudutb-upgu-mlxkk acid 1 EACH tablet 0.5 tablet PO BID RF: 0 linaclotide 72 MCG capsule 72 mcg PO DAILY RF: 0 carvedilol 25 MG tablet 25 mg PO BID RF: 0 insulin lispro 100 UNIT/ML insulin pen 6 - 8 unit subcut BID RF: 0 acetaminophen 500 MG tablet 1,000 mg PO Q8H PRN PRN (Reason: Pain Score 1-3) Qty: 0 RF: 0 tizanidine 4 MG tablet 4 mg PO Q8H PRN PRN (Reason: Muscle Spasm) Qty: 20 RF: 0 nitroglycerin 0.4 MG bottle 0.4 mg SL TID PRN PRN (Reason: chest pain) RF: 0 morphine 10 MG/5 ML solution 3 ml PO Q6H PRN PRN (Reason: Pain) RF: 0 polyethylene glycol 3350 17 GM packet 17 gm PO DAILY RF: 0 sennosides-docusate sodium 1 TABLET tablet 1 tablet PO QHS RF: 0 [id number]-[id number] 1 PACKET packet 1 packet PO BIDCM RF: 0 isosorbide mononitrate 60 mg tablet extended release 24 hr 60 mg PO DAILY RF: 0 isosorbide mononitrate 60 mg tablet extended release 24 hr 120 mg PO QHS RF: 0 esomeprazole magnesium 20 mg capsule,delayed release(DR/EC) 20 mg PO BID RF: 0 fexofenadine 180 mg Tablet 180 mg PO DAILY RF: 0 guaifenesin [Mucus Relief ER] 600 mg tablet extended release 12hr 600 mg PO DAILY RF: 0 clopidogrel 75 mg tablet 75 mg PO DAILY Qty: 90 RF: 3 amlodipine 5 mg tablet 5 mg PO BID Qty: 180 RF: 3 Discontinued pantoprazole 40 mg tablet,delayed release (DR/EC) 40 mg PO DAILY RF: 0 Levemir FlexTouch U-100 Insuln 100 unit/mL (3 mL) Insulin Pen 34 unit subcut BID RF: 0 Advil PM 200-38 mg Tablet 2 cap PO QHS RF: 0 cephalexin 500 mg capsule 500 mg PO Q8H RF: 0 lisinopril 10 mg tablet 10 mg PO BID RF: 0 Referrals / Follow Up: Con Johnson MD [Primary Care Provider] - In 1 Week Ivanna Magana DPM [STAFF PHYSICIAN] - In 1 Week Lars Wahl [employer], [employer] [Nurse Practitioner] - See Referral Note (As scheduled 01/10/21) Disposition Disposition (needs filled in before D/C Order can be placed): [facility] Documented by User: Dr. Vicki Salazar MD 12/14/20 16:27 Allergies/Procedures Done in Hospital Allergies doxycycline Allergy (Severe, Verified 12/08/20 17:34) all over body hives and itching atorvastatin calcium [From Lipitor] Allergy (Verified 12/08/20 17:34) Unknown bupropion HCl [From Wellbutrin] Allergy (Verified 12/08/20 17:34) Unknown mannitol [From Reclast] Allergy (Verified 12/08/20 17:34) joint pain, unable to breathe, unable to walk propoxyphene napsylate [From Darvocet-N 100] Allergy (Verified 12/08/20 17:34) Unknown Quinolones Allergy (Verified 12/08/20 17:34) Unknown Tetanus Vaccines and Toxoid [Tetanus Vaccines & Toxoid] Allergy (Verified 12/08/20 17:34) Chest tightness tizanidine Allergy (Verified 12/08/20 17:34) Unknown zoledronic acid [From Reclast] Allergy (Verified 12/08/20 17:34) joint pain,unable to breathe, unaable to walk JOINT PAIN,UNABLE TO BREATHE,UNABLE TO WALK pravastatin Adverse Reaction (Severe, Verified 12/08/20 17:34) Myalgias gemfibrozil Adverse Reaction (Intermediate, Verified 12/08/20 17:34) Unknown NSAIDS (Non-Steroidal Anti-Inflamma Adverse Reaction (Verified 12/08/20 17:34) Other Discharge Plan Admission Admit Date/Time: 12/08/20 22:13 Attending Provider: Vicki Salazar Primary Care Provider: Con Johnson Consulting Providers: Nicholas Espino ; Adam Webb Instructions Additional Instructions / Restrictions: Consult podiatry, Dr. Magana and wound RN at TCU. Recommend follow-up with wound center at discharge. Discharge Orders/Prescriptions Prescriptions: New Lantus Solostar U-100 Insulin 100 unit/mL (3 mL) Insulin Pen 25 unit subcut BID Qty: 0 RF: 0 lisinopril 20 mg Tablet 20 mg PO BID Qty: 0 RF: 0 oxycodone 5 mg Tablet 5 mg PO Q6H PRN PRN (Reason: Pain Score 6-10) Qty: 0 RF: 0 meropenem 1 gram recon soln 1 g IV Q8H Qty: 1 RF: 0 Continued Creon 24,000-76,000 -120,000 unit capsule,delayed release(DR/EC) 1 cap PO BID RF: 0 cbd 1 dose PO 4X/DAY PRN (Reason: pain/1500) RF: 0 aspirin [Adult Low Dose Aspirin] 81 mg tablet,delayed release (DR/EC) 81 mg PO DAILY RF: 0 pravastatin 40 MG tablet 40 mg PO QHS RF: 0 allopurinol 100 MG tablet 100 mg PO DAILY RF: 0 calcium citrate 200 MG tablet 200 mg PO BID Qty: 0 RF: 0 levothyroxine 75 MCG tablet 75 mcg PO QHS RF: 0 venlafaxine 100 MG tablet 100 mg PO BID RF: 0 trazodone 100 MG tablet 100 mg PO QHS PRN (Reason: Sleep) RF: 0 metoclopramide HCl 10 MG tablet 10 mg PO Q8H PRN (Reason: Nausea) RF: 0 bwuzhvajxkzt-pkxa-movnb acid 1 EACH tablet 0.5 tablet PO BID RF: 0 linaclotide 72 MCG capsule 72 mcg PO DAILY RF: 0 carvedilol 25 MG tablet 25 mg PO BID RF: 0 insulin lispro 100 UNIT/ML insulin pen 6 - 8 unit subcut BID RF: 0 acetaminophen 500 MG tablet 1,000 mg PO Q8H PRN PRN (Reason: Pain Score 1-3) Qty: 0 RF: 0 tizanidine 4 MG tablet 4 mg PO Q8H PRN PRN (Reason: Muscle Spasm) Qty: 20 RF: 0 nitroglycerin 0.4 MG bottle 0.4 mg SL TID PRN PRN (Reason: chest pain) RF: 0 morphine 10 MG/5 ML solution 3 ml PO Q6H PRN PRN (Reason: Pain) RF: 0 polyethylene glycol 3350 17 GM packet 17 gm PO DAILY RF: 0 sennosides-docusate sodium 1 TABLET tablet 1 tablet PO QHS RF: 0 [id number]-[id number]-tg-bxt 1 PACKET packet 1 packet PO BIDCM RF: 0 isosorbide mononitrate 60 mg tablet extended release 24 hr 60 mg PO DAILY RF: 0 isosorbide mononitrate 60 mg tablet extended release 24 hr 120 mg PO QHS RF: 0 esomeprazole magnesium 20 mg capsule,delayed release(DR/EC) 20 mg PO BID RF: 0 fexofenadine 180 mg Tablet 180 mg PO DAILY RF: 0 guaifenesin [Mucus Relief ER] 600 mg tablet extended release 12hr 600 mg PO DAILY RF: 0 clopidogrel 75 mg tablet 75 mg PO DAILY Qty: 90 RF: 3 amlodipine 5 mg tablet 5 mg PO BID Qty: 180 RF: 3 Discontinued pantoprazole 40 mg tablet,delayed release (DR/EC) 40 mg PO DAILY RF: 0 Levemir FlexTouch U-100 Insuln 100 unit/mL (3 mL) Insulin Pen 34 unit subcut BID RF: 0 Advil PM 200-38 mg Tablet 2 cap PO QHS RF: 0 cephalexin 500 mg capsule 500 mg PO Q8H RF: 0 lisinopril 10 mg tablet 10 mg PO BID RF: 0 Referrals / Follow Up: Con Johnson MD [Primary Care Provider] - In 1 Week Ivanna Magana DPM [STAFF PHYSICIAN] - In 1 Week Lars Wahl NP, [employer] [Nurse Practitioner] - See Referral Note (As scheduled 01/10/21) Disposition Disposition (needs filled in before D/C Order can be placed): [facility]
--- NOTE | 2020-12-14 14:45 | DS.PCM_ITS ---
Documented by User: Kasandra Perez NP, BUSINESS OFFICE SPECIALIST-C 12/14/20 16:00 Providers Date of Admission: 12/08/20 Date of Discharge: 12/14/20 Primary Care Physician: Dr. Con Johnson MD Consultations 12/08/20 17:18 Consult: Podiatry Routine Consulting Provider: Nicholas Espino Reason for Consult: foot infection EMERGENT Consult: No MD Notified: Yes Date Notified: 12/08/20 Time Notified: 17:00 Method of Notification: Verbal 12/08/20 22:14 Consult: Onc/Wound/information systems architect Routine Comment: 12/11/20 08:49 Consult: Infectious Disease Routine Consulting Provider: Adam Webb Reason for Consult: Recurrent left foot infection EMERGENT Consult: No MD Notified: Yes Date Notified: 12/11/20 Time Notified: 08:49 Method of Notification: Answering Service Method of Consult:: In-Person Comments:: diabetic foot infection Reason For Visit: DIABETIC FOOT INFECTION Diagnosis Discharge Diagnosis (1) Abscess of left foot: Status: Acute Code(s): L02.612 - Cutaneous abscess of left foot (2) Type 2 diabetes mellitus with diabetic polyneuropathy: Status: Acute Code(s): E11.42 - Type 2 diabetes mellitus with diabetic polyneuropathy (3) Charcot's joint of left foot: Status: Chronic Code(s): M14.672 - Charcot's joint, left ankle and foot (4) Osteomyelitis of left foot: Status: Acute Code(s): M86.9 - Osteomyelitis, unspecified Medications at Discharge Home Medications pravastatin 40 mg PO QHS 03/10/17 allopurinol 100 mg PO DAILY 03/17/20 calcium citrate 200 mg PO BID #0 03/17/20 aspirin 81 mg tablet,delayed release 81 mg PO DAILY 04/05/20 cbd 1 dose PO 4X/DAY PRN 04/05/20 wzlrlf-swqrgory-btbkrsa 24,000-76,000-120,000 unit capsule,delayed rel 1 cap PO BID cap 04/05/20 carvedilol 25 mg PO BID 08/17/20 levothyroxine 75 mcg PO QHS 08/17/20 linaclotide 72 mcg PO DAILY 08/17/20 metoclopramide HCl 10 mg PO Q8H PRN 08/17/20 hjfahncwxrgj-dzda-cegqn acid 0.5 tablet PO BID 08/17/20 trazodone 100 mg PO QHS PRN 08/17/20 venlafaxine 100 mg PO BID 08/17/20 insulin lispro 6 - 8 unit SUBCUT BID 08/22/20 acetaminophen 1,000 mg PO Q8H PRN PRN #0 tablet 09/09/20 tizanidine 4 mg PO Q8H PRN PRN #20 tablet 09/09/20 clopidogrel 75 mg tablet 75 mg PO DAILY #90 tablet 09/16/20 lfvkm-zzdl-PaBOB-vfcclp-zi-skf 1 packet PO BIDCM 09/19/20 morphine 3 ml PO Q6H PRN PRN 09/19/20 nitroglycerin 0.4 mg SL TID PRN PRN 09/19/20 polyethylene glycol 3350 17 gm PO DAILY 09/19/20 sennosides-docusate sodium 1 tablet PO QHS 09/19/20 amlodipine 5 mg tablet 5 mg PO BID #180 tab 11/09/20 esomeprazole magnesium 20 mg PO BID 12/08/20 fexofenadine 180 mg PO DAILY 12/08/20 guaifenesin [Mucus Relief ER] 600 mg PO DAILY 12/08/20 isosorbide mononitrate 60 mg PO DAILY 12/08/20 isosorbide mononitrate 120 mg PO QHS 12/08/20 insulin glargine [Lantus Solostar U-100 Insulin] 25 unit SUBCUT BID #0 ml 12/14/20 lisinopril 20 mg PO BID #0 tab 12/14/20 meropenem 1 g IV Q8H #1 ea 12/14/20 oxycodone 5 mg PO Q6H PRN PRN #0 tab 12/14/20 Hospital Course Operations - (Modified Chopart amputation left foot) Procedures None Summary of Care Provided Minutes Spent on Discharge: 35 Hospital Course: Patient is a 75-year-old female admitted 12/08/2020 due to redness and swelling of her left foot. 1. Acute, recurrent infected diabetic left foot ulcer with abscess and acute on chronic osteomyelitis, underlying charcot deformity-podiatry consulted. Bedside I&D completed on admisison. Cultures growing morganella, strep viridans, prevotella, actinomyces. Continue IV meropenem to complete course per ID recommendations, PICC line prior to discharge. Post op cultures pending. Wound RN consult. Continue dressing changes as ordered. MRI shows osteo and abscess. 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 Nonweightbearing left foot. TCU at discharge for rehab. 1. CAD with history of CABG and stents- Prior heart cath November 2018 which demonstrated mid RCA lesion 65% stenosis, FFR was done with no PCI. Stress echo June 2019 negative for ischemia. September 14 patient had non-ST elevation myocardial infarction with left circumflex coronary artery in-stent restenosis and underwent repeat PTCA/stent. She additionally underwent PTCA to proximal OM1. Echocardiogram August 2020 demonstrated an EF of 70%. Continue medical management including aspirin, Plavix, carvedilol, statin, isosorbide. Follow-up with cardiology as scheduled. 3. Chronic kidney disease stage IIIa-at baseline, trend BMP. 4. Type 2 diabetes mellitus-Home long-acting regimen reduced. Accu-Cheks with sliding scale insulin. Reports neuropathy pain, worse at bedtime. Refusing gabapentin. 5. Hypertension-stable, continue Norvasc, Coreg, lisinopril, isosorbide. Lisinopril regimen increased due to elevated blood pressure. 6. GERD-continue PPI. 7. Hypothyroidism-continue Synthroid. 8. PVD-continue aspirin, Plavix, statin. 9. Chronic microcytic anemia/iron deficiency anemia-stable. 10. Anxiety-uses CBD oil as needed. 11. Chronic severe malnutrition-dietitian consult. As evidenced by muscle and fat loss, poor oral intake and recent weight loss. Physical Exam Const alert, oriented x3 and no apparent distress Orientation / Consciousness: awake, oriented to person, oriented to place and oriented to time HEENT normocephalic and moist oral mucous membranes Eyes PERRL, EOMs intact bilaterally and conjunctivae normal Neck no lymphadenopathy Resp normal respiratory effort and clear to auscultation bilaterally Cardio regular rate, regular rhythm and no murmurs Peripheral Pulses: pulses 2+ throughout GI normal to inspection, nondistended, normoactive bowel sounds, non-tender and non-distended Extremity normal to inspection Skin no rashes or lesions noted Skin Narrative: Left foot wound, postoperative dressing intact. Lesions: no lesions Rashes: no rashes Trauma: no lacerations or abrasions Neuro CN's II-XII intact bilaterally, no focal motor deficits, no sensory deficits noted and deep tendon reflexes 2+ bilaterally Psych mental status grossly normal and affect normal Patient seen and examined prior to discharge. Physical assessment as noted above. Patient is stable for discharge with follow up recommendations as noted above. This patient was seen by CLIFFORD Grayson under the supervision of Dr. Salazar. Medical Records Data Medical Nutrition Assessment Dietitian: Nutrition Therapy Diagnosis Start: 12/14/20 12:18 Freq: Status: Active Protocol: Document 12/14/20 12:18 RMA (Rec: 12/14/20 12:19 RMA [id number]) Nutrition Malnutrition Evidence of Malnutrition Exists No Intake Problem Inadequate Oral Intake Etiology related to decreased appetite and acute wound Signs/Symptoms as evidenced by ~50% intake of meals at best Status Active Problem Increased Nutrient Needs (specify) Etiology for protein related to wound healing Signs/Symptoms as evidenced by Osteomyelitis of left foot/recurrent infected diabetic left foot ulcer, intake ~50% of meals on average and typically refuses Blue. Status Active Problem Recommendation Dietitian Recommendations/Changes Continue Carbohydrate- Controlled/Cardiac (no caloric restriction). Continue Bleu with meals BID at breakfast and dinner. Diet education as pt willing-- HgbA1C 7.5% yesterday. Weight / BMI Weight Weight: 177 lb 0.499 oz Body Mass Index (BMI) 30.4 ABG / Lab / Microbiology Data Result Diagrams: 12/14/20 07:10 12/13/20 05:06 Laboratory: Laboratory Results - last 24 hr 12/13/20 15:30: S.aureus Protein A PCR NEGATIVE, MRSA (PCR) Negative 12/13/20 16:13: POC Glucose 70 12/14/20 06:49: POC Glucose 90 12/14/20 07:10: WBC 7.9, RBC 3.51 L, Hgb 9.5 L, Hct 30.9 L, MCV 88.0, MCH 27.1, MCHC 30.7 L, RDW Std Deviation 49.8 H, RDW Coeff of Marco 15.4 H, Plt Count 216, MPV 8.7, Immature Gran % (Auto) 0.500, Neut % (Auto) 58.9, Lymph % (Auto) 27.9, Graves % (Auto) 8.8, Eos % (Auto) 3.4, Baso % (Auto) 0.5, Absolute Neuts (auto) 4.6, Absolute Lymphs (auto) 2.19, Nucleated RBC % 0 12/14/20 11:11: POC Glucose 264 H Microbiology: Microbiology 12/13/20 15:29 Wound - Left Foot Gram Stain - Final 12/13/20 15:29 Wound - Left Foot Wound Culture - Preliminary No growth-Final to follow 12/08/20 21:53 Blood Culture (Wb) - Left Forearm Blood Culture - Preliminary No growth in 48 hours. 12/08/20 19:46 Blood Culture (Wb) - Left Wrist Blood Culture - Preliminary No growth in 48 hours. 12/08/20 23:05 Wound - Left Foot Gram Stain - Final 12/08/20 23:05 Wound - Left Foot Wound Culture - Final Morganella morganii sp morgani Meaningful Use Info Meaningful Use Diagnoses (Choose all that apply): None applicable Discharge Plan Admission Admit Date/Time: 12/08/20 22:13 Attending Provider: Vicki Salazar Primary Care Provider: Con Johnson Consulting Providers: Nicholas Espino ; Adam Webb Instructions Additional Instructions / Restrictions: Consult podiatry, Dr. Magana and wound RN at TCU. Recommend follow-up with wound center at discharge. Discharge Orders/Prescriptions Prescriptions: New Lantus Solostar U-100 Insulin 100 unit/mL (3 mL) Insulin Pen 25 unit subcut BID Qty: 0 RF: 0 lisinopril 20 mg Tablet 20 mg PO BID Qty: 0 RF: 0 oxycodone 5 mg Tablet 5 mg PO Q6H PRN PRN (Reason: Pain Score 6-10) Qty: 0 RF: 0 meropenem 1 gram recon soln 1 g IV Q8H Qty: 1 RF: 0 Continued Creon 24,000-76,000 -120,000 unit capsule,delayed release(DR/EC) 1 cap PO BID RF: 0 cbd 1 dose PO 4X/DAY PRN (Reason: pain/1500) RF: 0 aspirin [Adult Low Dose Aspirin] 81 mg tablet,delayed release (DR/EC) 81 mg PO DAILY RF: 0 pravastatin 40 MG tablet 40 mg PO QHS RF: 0 allopurinol 100 MG tablet 100 mg PO DAILY RF: 0 calcium citrate 200 MG tablet 200 mg PO BID Qty: 0 RF: 0 levothyroxine 75 MCG tablet 75 mcg PO QHS RF: 0 venlafaxine 100 MG tablet 100 mg PO BID RF: 0 trazodone 100 MG tablet 100 mg PO QHS PRN (Reason: Sleep) RF: 0 metoclopramide HCl 10 MG tablet 10 mg PO Q8H PRN (Reason: Nausea) RF: 0 wuhfnnnoxrxc-shac-viaeq acid 1 EACH tablet 0.5 tablet PO BID RF: 0 linaclotide 72 MCG capsule 72 mcg PO DAILY RF: 0 carvedilol 25 MG tablet 25 mg PO BID RF: 0 insulin lispro 100 UNIT/ML insulin pen 6 - 8 unit subcut BID RF: 0 acetaminophen 500 MG tablet 1,000 mg PO Q8H PRN PRN (Reason: Pain Score 1-3) Qty: 0 RF: 0 tizanidine 4 MG tablet 4 mg PO Q8H PRN PRN (Reason: Muscle Spasm) Qty: 20 RF: 0 nitroglycerin 0.4 MG bottle 0.4 mg SL TID PRN PRN (Reason: chest pain) RF: 0 morphine 10 MG/5 ML solution 3 ml PO Q6H PRN PRN (Reason: Pain) RF: 0 polyethylene glycol 3350 17 GM packet 17 gm PO DAILY RF: 0 sennosides-docusate sodium 1 TABLET tablet 1 tablet PO QHS RF: 0 ymrbf-fjmk-LmVMM-tdhgtd-aq-shs 1 PACKET packet 1 packet PO BIDCM RF: 0 isosorbide mononitrate 60 mg tablet extended release 24 hr 60 mg PO DAILY RF: 0 isosorbide mononitrate 60 mg tablet extended release 24 hr 120 mg PO QHS RF: 0 esomeprazole magnesium 20 mg capsule,delayed release(DR/EC) 20 mg PO BID RF: 0 fexofenadine 180 mg Tablet 180 mg PO DAILY RF: 0 guaifenesin [Mucus Relief ER] 600 mg tablet extended release 12hr 600 mg PO DAILY RF: 0 clopidogrel 75 mg tablet 75 mg PO DAILY Qty: 90 RF: 3 amlodipine 5 mg tablet 5 mg PO BID Qty: 180 RF: 3 Discontinued pantoprazole 40 mg tablet,delayed release (DR/EC) 40 mg PO DAILY RF: 0 Levemir FlexTouch U-100 Insuln 100 unit/mL (3 mL) Insulin Pen 34 unit subcut BID RF: 0 Advil PM 200-38 mg Tablet 2 cap PO QHS RF: 0 cephalexin 500 mg capsule 500 mg PO Q8H RF: 0 lisinopril 10 mg tablet 10 mg PO BID RF: 0 Referrals / Follow Up: Con Johnson MD [Primary Care Provider] - In 1 Week Ivanna Magana DPM [STAFF PHYSICIAN] - In 1 Week Lars Wahl BUSINESS OFFICE SPECIALIST, BUSINESS OFFICE SPECIALIST-C [Nurse Practitioner] - See Referral Note (As scheduled 01/10/21) Disposition Disposition (needs filled in before D/C Order can be placed): [facility] Facility Documented by User: Dr. Vicki Salazar MD 12/14/20 16:32 Providers Date of Admission: 12/08/20 Reason For Visit: DIABETIC FOOT INFECTION Medications at Discharge Home Medications pravastatin 40 mg PO QHS 03/10/17 allopurinol 100 mg PO DAILY 03/17/20 calcium citrate 200 mg PO BID #0 03/17/20 aspirin 81 mg tablet,delayed release 81 mg PO DAILY 04/05/20 cbd 1 dose PO 4X/DAY PRN 04/05/20 ahmdkd-gaolumld-lznvilj 24,000-76,000-120,000 unit capsule,delayed rel 1 cap PO BID cap 04/05/20 carvedilol 25 mg PO BID 08/17/20 levothyroxine 75 mcg PO QHS 08/17/20 linaclotide 72 mcg PO DAILY 08/17/20 metoclopramide HCl 10 mg PO Q8H PRN 08/17/20 xbunwwssktvh-xcnk-ppdry acid 0.5 tablet PO BID 08/17/20 trazodone 100 mg PO QHS PRN 08/17/20 venlafaxine 100 mg PO BID 08/17/20 insulin lispro 6 - 8 unit SUBCUT BID 08/22/20 acetaminophen 1,000 mg PO Q8H PRN PRN #0 tablet 09/09/20 tizanidine 4 mg PO Q8H PRN PRN #20 tablet 09/09/20 clopidogrel 75 mg tablet 75 mg PO DAILY #90 tablet 09/16/20 hdlev-rhsj-FuFYP-gxhsgp-cg-mla 1 packet PO BIDCM 09/19/20 morphine 3 ml PO Q6H PRN PRN 09/19/20 nitroglycerin 0.4 mg SL TID PRN PRN 09/19/20 polyethylene glycol 3350 17 gm PO DAILY 09/19/20 sennosides-docusate sodium 1 tablet PO QHS 09/19/20 amlodipine 5 mg tablet 5 mg PO BID #180 tab 11/09/20 esomeprazole magnesium 20 mg PO BID 12/08/20 fexofenadine 180 mg PO DAILY 12/08/20 guaifenesin [Mucus Relief ER] 600 mg PO DAILY 12/08/20 isosorbide mononitrate 60 mg PO DAILY 12/08/20 isosorbide mononitrate 120 mg PO QHS 12/08/20 insulin glargine [Lantus Solostar U-100 Insulin] 25 unit SUBCUT BID #0 ml 12/14/20 lisinopril 20 mg PO BID #0 tab 12/14/20 meropenem 1 g IV Q8H #1 ea 12/14/20 oxycodone 5 mg PO Q6H PRN PRN #0 tab 12/14/20 ABG / Lab / Microbiology Data Result Diagrams: 12/14/20 07:10 12/13/20 05:06 Discharge Plan Admission Admit Date/Time: 12/08/20 22:13 Attending Provider: Vicki Salazar Primary Care Provider: Con Johnson Consulting Providers: Nicholas Espino ; Adam Webb Instructions Additional Instructions / Restrictions: Consult podiatry, Dr. Magana and wound RN at TCU. Recommend follow-up with wound center at discharge. Discharge Orders/Prescriptions Prescriptions: New Lantus Solostar U-100 Insulin 100 unit/mL (3 mL) Insulin Pen 25 unit subcut BID Qty: 0 RF: 0 lisinopril 20 mg Tablet 20 mg PO BID Qty: 0 RF: 0 oxycodone 5 mg Tablet 5 mg PO Q6H PRN PRN (Reason: Pain Score 6-10) Qty: 0 RF: 0 meropenem 1 gram recon soln 1 g IV Q8H Qty: 1 RF: 0 Continued Creon 24,000-76,000 -120,000 unit capsule,delayed release(DR/EC) 1 cap PO BID RF: 0 cbd 1 dose PO 4X/DAY PRN (Reason: pain/1500) RF: 0 aspirin [Adult Low Dose Aspirin] 81 mg tablet,delayed release (DR/EC) 81 mg PO DAILY RF: 0 pravastatin 40 MG tablet 40 mg PO QHS RF: 0 allopurinol 100 MG tablet 100 mg PO DAILY RF: 0 calcium citrate 200 MG tablet 200 mg PO BID Qty: 0 RF: 0 levothyroxine 75 MCG tablet 75 mcg PO QHS RF: 0 venlafaxine 100 MG tablet 100 mg PO BID RF: 0 trazodone 100 MG tablet 100 mg PO QHS PRN (Reason: Sleep) RF: 0 metoclopramide HCl 10 MG tablet 10 mg PO Q8H PRN (Reason: Nausea) RF: 0 dgvjdlmopqfj-abqt-oaytx acid 1 EACH tablet 0.5 tablet PO BID RF: 0 linaclotide 72 MCG capsule 72 mcg PO DAILY RF: 0 carvedilol 25 MG tablet 25 mg PO BID RF: 0 insulin lispro 100 UNIT/ML insulin pen 6 - 8 unit subcut BID RF: 0 acetaminophen 500 MG tablet 1,000 mg PO Q8H PRN PRN (Reason: Pain Score 1-3) Qty: 0 RF: 0 tizanidine 4 MG tablet 4 mg PO Q8H PRN PRN (Reason: Muscle Spasm) Qty: 20 RF: 0 nitroglycerin 0.4 MG bottle 0.4 mg SL TID PRN PRN (Reason: chest pain) RF: 0 morphine 10 MG/5 ML solution 3 ml PO Q6H PRN PRN (Reason: Pain) RF: 0 polyethylene glycol 3350 17 GM packet 17 gm PO DAILY RF: 0 sennosides-docusate sodium 1 TABLET tablet 1 tablet PO QHS RF: 0 vxsja-jgsa-HgZQC-fdhqrh-fj-bkk 1 PACKET packet 1 packet PO BIDCM RF: 0 isosorbide mononitrate 60 mg tablet extended release 24 hr 60 mg PO DAILY RF: 0 isosorbide mononitrate 60 mg tablet extended release 24 hr 120 mg PO QHS RF: 0 esomeprazole magnesium 20 mg capsule,delayed release(DR/EC) 20 mg PO BID RF: 0 fexofenadine 180 mg Tablet 180 mg PO DAILY RF: 0 guaifenesin [Mucus Relief ER] 600 mg tablet extended release 12hr 600 mg PO DAILY RF: 0 clopidogrel 75 mg tablet 75 mg PO DAILY Qty: 90 RF: 3 amlodipine 5 mg tablet 5 mg PO BID Qty: 180 RF: 3 Discontinued pantoprazole 40 mg tablet,delayed release (DR/EC) 40 mg PO DAILY RF: 0 Levemir FlexTouch U-100 Insuln 100 unit/mL (3 mL) Insulin Pen 34 unit subcut BID RF: 0 Advil PM 200-38 mg Tablet 2 cap PO QHS RF: 0 cephalexin 500 mg capsule 500 mg PO Q8H RF: 0 lisinopril 10 mg tablet 10 mg PO BID RF: 0 Referrals / Follow Up: Con Johnson MD [Primary Care Provider] - In 1 Week Ivanna Magana DPM [STAFF PHYSICIAN] - In 1 Week Lars Wahl NP, BUSINESS OFFICE SPECIALIST-C [Nurse Practitioner] - See Referral Note (As scheduled 01/10/21) Disposition Disposition (needs filled in before D/C Order can be placed): [facility] Facility Charges/Coding Addendum Addendum: This patient was seen in conjunction with Kasandra Perez. I have independently interviewed and examined the patient and reviewed pertinent historical, laboratory, and other data. I have reviewed her note and concur with her documentation 75-year-old female with multiple comorbidities including charcoaled foot second to diabetes who presented with redness and swelling of her left foot ongoing for 5 days. Patient has had recurrent ulcers to the plantar aspect of the left foot. She was admitted from the ED and started on IV antibiotics. MRI of the foot was significant for abscess in the plantar area as well as acute on chronic osteomyelitis. Patient underwent Chopart amputation on 12/13/20. Her wound cultures grew Morganella, strep, MS stimulants, anaerobes She was evaluated and discharged to TCU. She had a PICC line. Showed continue on IV meropenem. On the day of discharge, patient was seen and examined. See progress note of the day. Physical Exam: Gen: Comfortable, not pale, not jaundiced CVS:HS I +II, regular, no murmurs RESP: Diminished at lung bases GI: BS present and normal, soft, nontender, no palpable organs EXT:No edema, left foot is wrapped Arjun wraps Visit Charges Inpatient E&M: 35371 Disch Hosp
--- NOTE | 2020-12-14 15:45 | PCM.PN.ID ---
Physical Exam Narrative Pain in foot, no fever, no n/v/d Const alert and no apparent distress General Appearance: cooperative Resp normal air movement and clear to auscultation bilaterally Cardio regular rate and regular rhythm GI normal to inspection, nondistended, normoactive bowel sounds Skin no rashes or lesions noted Skin Narrative: foot wrapped ID ID: Route of nutrition/ use of supplements: [] Nutritional Intake: [] IV Site: [] Maloney Catheter: [] Assessment & Plan Assessment/Plan (1) Abscess of left foot: PLAN: MRI shows osteo and abscess. Foot cx with morganella, strep, MS S. simulans, actino, anaerobe. Cont meropenem to have actino coverage. Taken to OR 12/[address] Magana for partial amputation. Surg cx pending. Will order picc due to limited iv access, but hopefully can be discharge on short course po abx if margins are clear. Will follow, d/w primary team. (2) Type 2 diabetes mellitus with diabetic polyneuropathy:
[2020-12-14 16:16] LABS: Bedside Glucose 139 mg/dL (70-110)
[2020-12-14] MEDS: Pravastatin 40 MG Tablet PO (20:54)
[2020-12-14] MEDS: Levothyroxine 75 MCG Tablet PO (20:55)
[2020-12-14 21:20] LABS: Bedside Glucose 190 mg/dL (70-110)
--- NOTE | 2020-12-14 22:02 | NURSING ---
Picc line placed, report called to Fouzia MADISON in TCU for discharge.
[2020-12-14] MEDS: 0.9% Saline Lock 10 ML Syringe IV (22:07)
== END 2020-12-14 22:15 | DRG 616 ==
LOC: ED 20:23 → MS3 22:42
PROVIDERS: Anesthesiology; Internal Medicine; Nurse Practitioner Family; Podiatrist; Admitting Provider Student in an Organized Health Care Education/Training Program; Emergency Provider Emergency Medicine; PCP Family Medicine; Visit Provider Internal Medicine
PROC: 0Y6N0Z0 Detachment at Left Foot, Complete, Open Approach (ICD-10-PCS; principal; 2020-12-13 14:20)
DX: E11.69 Type 2 diabetes mellitus with other specified complication (principal); E43 Unspecified severe protein-calorie malnutrition; M86.172 Other acute osteomyelitis, left ankle and foot; M86.672 Other chronic osteomyelitis, left ankle and foot; L97.424 Non-pressure chronic ulcer of left heel and midfoot with necrosis of bone; L02.612 Cutaneous abscess of left foot; L03.116 Cellulitis of left lower limb; E87.1 Hypo-osmolality and hyponatremia; I13.0 Hypertensive heart and chronic kidney disease with heart failure and stage 1 through stage 4 chronic kidney disease, or unspecified chronic kidney disease; B95.4 Other streptococcus as the cause of diseases classified elsewhere; B95.7 Other staphylococcus as the cause of diseases classified elsewhere; B95.2 Enterococcus as the cause of diseases classified elsewhere; B96.89 Other specified bacterial agents as the cause of diseases classified elsewhere; E11.621 Type 2 diabetes mellitus with foot ulcer; E87.5 Hyperkalemia; E11.42 Type 2 diabetes mellitus with diabetic polyneuropathy; E11.610 Type 2 diabetes mellitus with diabetic neuropathic arthropathy; E11.51 Type 2 diabetes mellitus with diabetic peripheral angiopathy without gangrene; E11.22 Type 2 diabetes mellitus with diabetic chronic kidney disease; N18.31 Chronic kidney disease, stage 3a; I50.9 Heart failure, unspecified; I25.10 Atherosclerotic heart disease of native coronary artery without angina pectoris; E78.5 Hyperlipidemia, unspecified; E03.9 Hypothyroidism, unspecified; K58.9 Irritable bowel syndrome, unspecified; F03.90 Unspecified dementia, unspecified severity, without behavioral disturbance, psychotic disturbance, mood disturbance, and anxiety; Z68.30 Body mass index [BMI] 30.0-30.9, adult; D50.9 Iron deficiency anemia, unspecified; D63.1 Anemia in chronic kidney disease; G47.30 Sleep apnea, unspecified; M24.572 Contracture, left ankle; M06.9 Rheumatoid arthritis, unspecified; M10.9 Gout, unspecified; K21.9 Gastro-esophageal reflux disease without esophagitis; M81.0 Age-related osteoporosis without current pathological fracture; F32.9 Major depressive disorder, single episode, unspecified; F41.9 Anxiety disorder, unspecified; E66.9 Obesity, unspecified; Z79.4 Long term (current) use of insulin; Z79.82 Long term (current) use of aspirin; Z79.890 Hormone replacement therapy; Z79.02 Long term (current) use of antithrombotics/antiplatelets; Z79.899 Other long term (current) drug therapy; I25.2 Old myocardial infarction; Z86.718 Personal history of other venous thrombosis and embolism; Z86.73 Personal history of transient ischemic attack (TIA), and cerebral infarction without residual deficits; Z95.1 Presence of aortocoronary bypass graft; Z98.84 Bariatric surgery status; Z95.5 Presence of coronary angioplasty implant and graft
CPT/HCPCS: 11042; 36415; 36569; 73620; 73630; 73718; 76000; 80048; 80053; 80202; 82962; 83036; 83605; 84443; 85025; 85610; 85652; 86140; 87040; 87070; 87075; 87077; 87186; 87205; 87426; 87640; 88307; 88311; 93005; 97162; 97166; 97168; 97802; 99251; 99284; J2185; J7030; J7040; J7050; A4216; G0463; J2405

== ENCOUNTER 2020-12-14 22:40 | Inpatient (IN) | payer MEDICARE, OTHER, SELFPAY ==
[2020-12-13 13:44] VITALS: BMI 30.4
[2020-12-14 22:46] VITALS: BP 112/54; PULSE 97; RESP 16; RESP 18; TEMP 37.2; O2SAT 96; O2SAT 98
[2020-12-14 22:54] VITALS: BMI 30.9
--- NOTE | 2020-12-14 23:29 | RAD_ITS ---
STUDY: X-RAY CHEST REASON FOR EXAM: Female, 75 years old. PICC verification TECHNIQUE: Single AP portable view of the chest. COMPARISON: 09/19/2020 FINDINGS: Right PICC with tip in the mid to distal SVC. No pneumothorax The lungs are clear and expanded. There is no demonstrated pleural abnormality. There is borderline cardiomegaly. Median sternotomy wires are noted. Normal mediastinum and oniel. Normal visualized pulmonary arteries. Normal visualized aortic arch and descending thoracic aorta. Normal visualized thoracic spine. Normal visualized ribs, clavicles, and shoulders. C-spine hardware is noted There is no demonstrated abnormality of the visualized soft tissue structures of the upper abdomen. RAD/CXR for Line Placement IMPRESSION: Lungs are clear. Right PICC as above without pneumothorax Electronically Signed: Arie Marquis DO at 23:58 EDT Tel , Service support ,
[2020-12-14 23:55] LABS: Bedside Glucose 153 mg/dL (70-110)
[2020-12-15] MEDS: morphine (oral solution) 10MG/0.5ML Syringe 6 MG PO (01:09)
[2020-12-15] MEDS: tiZANidine HCl 2 MG Tablet 4 MG PO (04:40)
[2020-12-15] MEDS: Loratadine 10 MG Tablet PO (04:40)
[2020-12-15 04:41] LABS: Bedside Glucose 86 mg/dL (70-110)
[2020-12-15] MEDS: Isosorbide Mononitrate 60 MG Tablet PO (04:44)
[2020-12-15] MEDS: Clopidogrel Bisulfate 75 MG Tablet PO (04:45)
[2020-12-15] MEDS: Pantoprazole Sodium 20 MG Tablet PO ×2 (04:45→17:22)
[2020-12-15] MEDS: amLODIPine 5 MG Tablet PO ×2 (04:45→17:23)
[2020-12-15] MEDS: guaiFENesin 600 MG Tablet PO ×2 (04:45→17:22)
[2020-12-15] MEDS: Lisinopril 20 MG Tablet PO ×2 (04:46→17:22)
[2020-12-15 04:48] VITALS: BP 143/62; PULSE 85; RESP 16; TEMP 36.8; O2SAT 93
[2020-12-15 05:42] LABS: Absolute Lymphocyte Count 2.37 X10^3/uL (0.83-4.51); Absolute Neutrophil Count 4.1 X10^3/uL (2.0-7.7); Basophil# 0.03 X10^3/uL; Basophil% 0.4 % (0-1); Eosinophil# 0.39 X10^3/uL; Eosinophils% 5.1 % (0-5); Hematocrit 29.8 % (37-47); Hemoglobin 9.2 g/dL (12.0-15.0); Lymphocyte # 2.37 X10^3/ul (0.83-4.51); Lymphocyte % 30.9 % (19-41); Mean Corp Hgb Conc 30.9 g/dL (32-36); Mean Corpuscular Hgb 26.7 pg (27.0-32.0); Mean Corpuscular Volume 86.4 fL (81-99); Mean Platelet Vol. 8.7 fl (6.2-12.0); Monocyte# 0.79 X10^3/uL; Monocyte% 10.3 % (0-10); NRBC Flagged by Analyzer 0 % (0-5); Neutrophil # 4.05 X10^3/uL (2.7-7.7); Neutrophil % 52.9 % (47-70); Platelet Count 206 K/mm3 (150-450); RBC Distribution Width CV 15.4 % (11.6-14.6); RBC Distribution Width SD 48.2 fl (35.1-43.9); Red Blood Count 3.45 M/mm3 (4.2-5.4); White Blood Count 7.7 K/mm3 (4.4-11.0)
[2020-12-15 06:14] LABS: Anion Gap 6 (5-15); BUN 37 mg/dL (7-18); BUN/Creat Ratio 28.7 RATIO (10-20); Calcium,Total 8.2 mg/dL (8.5-10.1); Chloride 108 mmol/L (98-107); Creatinine, Serum 1.29 mg/dL (0.55-1.02); EST Glomerular Filtration Rate 43 mL/min (>60); Est Glom Filt Rate - Afr Amer 52 mL/min (>60); Estimated Creatinine Clearance 33.54 ml/min; Glucose 130 mg/dL (74-106); Potassium 4.2 mmol/L (3.5-5.1); Sodium Level 138 mmol/L (136-145)
[2020-12-15 06:31] LABS: Bedside Glucose 139 mg/dL (70-110)
--- NOTE | 2020-12-15 07:00 | PN_ITS ---
Subjective Subjective This patient was seen postoperative day #2 left Chopart amputation for treatment of osteomyelitis, recurrent abscess, and Charcot deformity. She denies fever, chill, nausea, vomiting, shortness of breath, chest pain. She relates her pain was very minimal yesterday afternoon and is now moderate this morning. She has maintained a nonweightbearing status. Objective Data Objective Data Vital Signs: Vital Signs Temp Pulse Resp BP Pulse Ox 98.2 F 85 16 143/62 H 93 12/15/20 04:48 12/15/20 04:48 12/15/20 04:48 12/15/20 04:48 12/15/20 04:48 Oxygen Delivery Method Room Air Weight: 81.9 kg Body Mass Index (BMI) 30.9 Lab / Micro Data Result Diagrams: 12/15/20 05:24 12/15/20 05:24 Labs: Laboratory Results - last 24 hr 12/14/20 23:08: POC Glucose 153 H 12/15/20 04:35: POC Glucose 86 12/15/20 05:24: WBC 7.7, RBC 3.45 L, Hgb 9.2 L, Hct 29.8 L, MCV 86.4, MCH 26.7 L , MCHC 30.9 L, RDW Std Deviation 48.2 H, RDW Coeff of Marco 15.4 H, Plt Count 206, MPV 8.7, Immature Gran % (Auto) 0.400, Neut % (Auto) 52.9, Lymph % (Auto) 30.9, George % (Auto) 10.3 H, Eos % (Auto) 5.1 H, Baso % (Auto) 0.4, Absolute Neuts (auto) 4.1, Absolute Lymphs (auto) 2.37, Nucleated RBC % 0 12/15/20 05:24: Sodium 138, Potassium 4.2, Chloride 108 H, Carbon Dioxide 24.0, Anion Gap 6, BUN 37 H, Creatinine 1.29 H, Estim Creat Clear Calc 33.54, Est GFR (MDRD) Af Amer 52 L, Est GFR (MDRD) Non-Af 43 L, BUN/Creatinine Ratio 28.7 H, Glucose 130 H, Calcium 8.2 L 12/15/20 06:11: POC Glucose 139 H Radiography Diagnostic Testing: Radiology Impression Chest X-Ray 12/14/20 23:29 IMPRESSION: Lungs are clear. Right PICC as above without pneumothorax Electronically Signed: rAie Marquis DO at 23:58 EDT Tel , Service support , Physical Exam Const alert, oriented x3 and no apparent distress Extremity no calf tenderness Extremity Narrative: Left foot: Status post Chopart amputation with sutures intact without gapping or necrosis. There is no dusky formation at the amputation margins. There is no fluctuance or bogginess. No odor erythema or streaking or purulence. Negative Claudio and Elizondo sign left. Compartments remain soft to palpate left lower extremity. Capillary fill time is brisk to all margins of the amputation occluding a complex flap closure Assessment & Plan Assessment/Plan (1) Abscess of left foot: (2) Type 2 diabetes mellitus with diabetic polyneuropathy: (3) Charcot's joint of left foot: (4) Osteomyelitis of left foot: PLAN: Re-evaluation performed and I discussed her case this morning. Cli nically her amputation site appears stable without local signs of infection. Her vital signs are stable and she is afebrile. It is noted that at the amputation level and surgery there was no evidence of infection or necrosis. She does not have leukocytosis; her white blood cell count was 7.7. She is afebrile. Previous culture results from plantar foot ulcer from wound center include multiorganism growth: morganella, strep viridans, staph simulans, prevotella bivia, actinomyces neuii. MRI with acute on chronic charcot and osteomyelitis and abscess findings. Infectious Disease on consult and appreciated. Blood cultures negative. She continues on IV meropenem at this time. PICC line was placed due to lack of IV access. At the level of resection and surgery, there was no evidence of purulence or necrosis or other infection. The tissue appeared very healthy. Post irrigation aerobic and anaerobic swab was obtained and sent to microbiology; pending. Wound care: Betadine wet-to-dry dressing was reapplied with Adaptic, gauze, abdominal pads, Kerlix, and Arjun wrap. Keep dressing clean, dry and intact otherwise. No weightbearing left foot, keep left foot elevated. To use assistive device and work with PT and OT. It is noted she also had recent vascular surgery intervention in the outpatient setting and has optimized perfusion status. Pain medication adjustments were ordered. To ice and elevate for pain and inflammation management as well. Podiatry will continue to follow. She resides in the transitional care unit at this time. She was seen this morning with wound nurseVi and photos were obtained. Please do not hesitate to call if you have any questions. Ivanna Magana DPM, FACFAS [facility] [phone]
[2020-12-15] MEDS: Menthol/Lanolin/Calamine/Znox 113 GM Tube 1 APPLIC TOPICAL ×2 (07:22→17:28)
--- NOTE | 2020-12-15 07:46 | HP.PCM_ITS ---
HPI - General General Date of Admission: 12/14/20 HPI Narrative 12/08/2020 SEBASTIÁN REYES, is a 75 Female who presents to [facility] Emergency Department with wound check. Left foot redness, swelling x 5 days. Left dorsal foot redness, swelling. X-ray left foot showed gas in soft tissues. Clindamycin IV, Vancomycin IV given. Potassium 5.9. 12/08/2020 Admit to Hospital. Vancomycin IV, Clindamycin IV, consult Podiatry, MRI left foot for cellulitis of left diabetic foot. Blood cultures sent, wound cultures sent. Hold potassium sparing medications, give Kayexalate for hyperkalemia. Gentle IV Fluids for sodium 130. 12/09/2020 PT/OT for debility. Dr. Espino debrided left foot at bedside. Continue Vancomycin IV, Clindamycin IV. 12/10/2020 Cultures pending. Gabapentin increased to 300MG at HS for diabetic neuropathy. 12/11/2020 Cultures growing morganella. Antibiotics transitioned to Zosyn IV. 12/12/2020 Dr. Webb left foot osteomyelitis, abscess. Zosyn transitioned to Meropenem for Actinomyces coverage. 12/13/2020 Dr. Magana performed modified Chopart amputation of left foot. 12/14/2020 Non Weight Bearing left, Shelter Facility recommended. 12/14/2020 Dr. Webb ordered PICC line, but oral antibiotics possible if surgical margins clear of infection. 12/14/2020 Admit to TCU with debility, here for rehabilitation, strengthening, ?intravenous antibiotics, prior to discharge home with . [facility] Medical History (Updated 12/15/20 @ 07:[address] Adolfo Rush MD) Amput foot, unilat-complicated Anemia Anxiety Atherosclerotic heart disease of [place] coronary artery without angina pectoris Carotid artery disease Carpal tunnel syndrome Charcot's joint of left foot Chest pain Congestive heart failure (CHF) Coronary artery disease CPAP (continuous positive airway pressure) dependence Diabetes DVT (deep venous thrombosis) Essential hypertension GERD (gastroesophageal reflux disease) GI bleed Gout History of blood clots History of blood transfusion History of CVA (cerebrovascular accident) Hyperlipidemia Hypertension Hypothyroidism Hypothyroidism IBS (irritable bowel syndrome) Iron deficiency anemia Kidney stones Migraines Myocardial infarct Neuropathy Non-smoker Obesity Osteoporosis Peripheral arterial occlusive disease Peripheral vascular disease Rheumatoid arthritis Sleep apnea Type 2 diabetes mellitus with diabetic polyneuropathy Ulcer of abdomen wall with fat layer exposed Ulcer of left foot with fat layer exposed Vitamin D deficiency Home Medications pravastatin 40 mg PO QHS 03/10/17 [History Last Taken 12/07/20] allopurinol 100 mg PO DAILY 03/17/20 [History Last Taken 12/08/20] calcium citrate 200 mg PO BID #0 03/17/20 [Rx Last Taken 12/08/20] aspirin 81 mg tablet,delayed release 81 mg PO DAILY 04/05/20 [History Last Taken 12/07/20] cbd 1 dose PO 4X/DAY PRN PRN 04/05/20 [History Last Taken 12/08/20] rptjbl-iccedgmg-vozrzsv 24,000-76,000-120,000 unit capsule,delayed rel 1 cap PO BID cap 04/05/20 [History Last Taken 12/08/20] carvedilol 25 mg PO BID 08/17/20 [History Last Taken 12/08/20] levothyroxine 75 mcg PO QHS 08/17/20 [History Last Taken 12/07/20] linaclotide 72 mcg PO DAILY 08/17/20 [History Last Taken 11/21/20] metoclopramide HCl 10 mg PO Q8H PRN PRN 08/17/20 [History Last Taken 12/07/20] fmcgbuewnnbh-isep-fuhfe acid 0.5 tablet PO BID 08/17/20 [History Last Taken 12/08/20] trazodone 100 mg PO QHS PRN PRN 08/17/20 [History Last Taken 12/07/20] venlafaxine 100 mg PO BID 08/17/20 [History Last Taken 12/08/20] insulin lispro 6 - 8 unit SUBCUT BID 08/22/20 [History Last Taken 12/08/20] acetaminophen 1,000 mg PO Q8H PRN PRN #0 tablet 09/09/20 [Rx Last Taken 12/08/20] tizanidine 4 mg PO Q8H PRN PRN #20 tablet 09/09/20 [Rx Last Taken 12/07/20] clopidogrel 75 mg tablet 75 mg PO DAILY #90 tablet 09/16/20 [Rx Last Taken 12/08/20] crwqs-jqxp-AyRWW-wpsblr-wu-hjs 1 packet PO BIDCM 09/19/20 [History Last Taken 12/08/20] morphine 3 ml PO Q6H PRN PRN 09/19/20 [History Last Taken 12/07/20] nitroglycerin 0.4 mg SL TID PRN PRN 09/19/20 [History Last Taken 1 Week Ago ~12/01/20] polyethylene glycol 3350 17 gm PO DAILY 09/19/20 [History Last Taken 12/08/20] sennosides-docusate sodium 1 tablet PO QHS 09/19/20 [History Last Taken 12/07/20] amlodipine 5 mg tablet 5 mg PO BID #180 tab 11/09/20 [Rx Last Taken 12/08/20] esomeprazole magnesium 20 mg PO BID 12/08/20 [History Last Taken 12/08/20] fexofenadine 180 mg PO DAILY 12/08/20 [History Last Taken 12/08/20] guaifenesin [Mucus Relief ER] 600 mg PO DAILY 12/08/20 [History Last Taken 12/08/20] isosorbide mononitrate 60 mg PO DAILY 12/08/20 [History Last Taken 12/08/20] isosorbide mononitrate 120 mg PO QHS 12/08/20 [History Last Taken 12/07/20] insulin glargine [Lantus Solostar U-100 Insulin] 25 unit SUBCUT BID 12/14/20 [History Last Taken Unknown] lisinopril 20 mg PO BID 12/14/20 [History Last Taken Unknown] meropenem 1 g IV Q8H 12/14/20 [History Last Taken Unknown] oxycodone 5 mg PO Q6H PRN PRN #0 tab 12/14/20 [Rx Last Taken Unknown] Allergy/AdvReac Type Severity Reaction Status Date / Time doxycycline Allergy Severe all over Verified 12/08/20 17:34 body hives and itching atorvastatin calcium Allergy Unknown Verified 12/08/20 17:34 [From Lipitor] bupropion HCl Allergy Unknown Verified 12/08/20 17:34 [From Wellbutrin] mannitol [From Reclast] Allergy joint Verified 12/08/20 17:34 pain, unable to breathe, unable to walk propoxyphene napsylate Allergy Unknown Verified 12/08/20 17:34 [From Darvocet-N 100] Quinolones Allergy Unknown Verified 12/08/20 17:34 Tetanus Vaccines and Toxoid Allergy Chest Verified 12/08/20 17:34 [Tetanus Vaccines & Toxoid] tightness tizanidine Allergy Unknown Verified 12/08/20 17:34 zoledronic acid Allergy joint Verified 12/08/20 17:34 [From Reclast] pain,unable to breathe, unaable to walk pravastatin AdvReac Severe Myalgias Verified 12/08/20 17:34 gemfibrozil AdvReac Intermediate Unknown Verified 12/08/20 17:34 NSAIDS (Non-Steroidal AdvReac Other Verified 12/08/20 17:34 Anti-Inflamma Family History Mother , age 75 Cancer CVA (cerebral vascular accident) CAD (coronary artery disease) Father CAD (coronary artery disease) History of coronary artery bypass graft Sister CAD (coronary artery disease) Multiple sclerosis Other Anxiety Bleeding disorder Depression Diabetes Heart disease High cholesterol Hypertension Surgical History (Updated 12/15/20 @ 07:[address] Adolfo Rush MD) History of appendectomy History of cholecystectomy History of Chopart amputation of left foot History of coronary artery bypass graft History of coronary artery stent placement History of excision of lesion History of gastric bypass History of gastric bypass History of left heart catheterization History of ventral hernia repair Hx of CABG Hx of ventral hernia repair Stented coronary artery (12/03/18) Social History Smoking Status: Never smoker alcohol intake: never substance use type: does not use caffeine: Yes Type: coffee what type of physical activity do you participate in: none seatbelt use: sometimes do you feel safe at home: Yes additional social history: DOES NOT TAKE ASPIRIN DOES TAKE IBUPROFEN NEEDED ROS Constitutional Constitutional: Denies chills, fever(s) or weight gain ENT HEENT: Denies headache(s), nasal congestion or nasal discharge Cardiovascular Cardiovascular: Denies chest pain or palpitations Respiratory/Chest Respiratory/Chest: Denies cough, excessive phlegm production or shortness of breath with exertion Gastrointestinal Gastrointestinal: Denies abdominal pain, nausea or vomiting Genitourinary Genitourinary: Denies dysuria Musculoskeletal Musculoskeletal: Denies joint pain or joint swelling Integumentary Integumentary: Denies rash or wounds Neurologic Neurologic: Denies focal weakness, numbness or tingling Psychiatric Psychiatric: Reports auditory hallucinations; Denies anxiety, depression, homicidal ideation or suicidal ideation Vital Signs Vital Signs Vital Signs: 12/14/20 22:46 12/15/20 04:48 Temperature 98.9 F 98.2 F Temperature Source Temporal Axillary Pulse Rate 97 85 Pulse Rhythm Regular Pulse Strength Normal (2+) Respiratory Rate 18 16 Respiratory Effort Normal Non-Labored Respiratory Depth Normal Respiratory Pattern Normal Blood Pressure 112/54 L 143/62 H Blood Pressure Mean 73 89 Blood Pressure Source Monitor Blood Pressure Position Sitting Blood Pressure Location Left Arm Pulse Ox 96 93 Oxygen Delivery Method Room Air Room Air Weight Weight: 81.9 kg Body Mass Index (BMI) 30.9 Physical Exam Const alert and oriented x3 General Appearance: cooperative HEENT normocephalic Eyes PERRL and EOMs intact bilaterally Neck supple, no JVD and no carotid bruits Resp normal respiratory effort, normal air movement and clear to auscultation bilaterally Cardio regular rate and regular rhythm GI normal to inspection, nondistended, normoactive bowel sounds, non-tender and non-distended Extremity normal capillary refill Extremity Narrative: Left foot dressed, PICC line RUE. General Extremity: Negative for edema Skin no rashes or lesions noted General Skin Exam: no breakdown Psych affect normal Appearance: appropriate Results Lab / Micro Data Result Diagrams: 12/15/20 05:24 12/15/20 05:24 Labs: Laboratory Results - last 24 hr 12/14/20 23:08: POC Glucose 153 H 12/15/20 04:35: POC Glucose 86 12/15/20 05:20: COVID-19 (CARLEEN) Not Detected 12/15/20 05:24: WBC 7.7, RBC 3.45 L, Hgb 9.2 L, Hct 29.8 L, MCV 86.4, MCH 26.7 L , MCHC 30.9 L, RDW Std Deviation 48.2 H, RDW Coeff of Marco 15.4 H, Plt Count 206, MPV 8.7, Immature Gran % (Auto) 0.400, Neut % (Auto) 52.9, Lymph % (Auto) 30.9, [place] % (Auto) 10.3 H, Eos % (Auto) 5.1 H, Baso % (Auto) 0.4, Absolute Neuts (auto) 4.1, Absolute Lymphs (auto) 2.37, Nucleated RBC % 0 12/15/20 05:24: Sodium 138, Potassium 4.2, Chloride 108 H, Carbon Dioxide 24.0, Anion Gap 6, BUN 37 H, Creatinine 1.29 H, Estim Creat Clear Calc 33.54, Est GFR (MDRD) Af Amer 52 L, Est GFR (MDRD) Non-Af 43 L, BUN/Creatinine Ratio 28.7 H, Glucose 130 H, Calcium 8.2 L 12/15/20 06:11: POC Glucose 139 H Radiology Impression Chest X-Ray 12/14/20 23:29 IMPRESSION: Lungs are clear. Right PICC as above without pneumothorax Electronically Signed: Arie Marquis DO at 23:58 EDT Tel , Service support , Assessment & Plan Assessment/Plan (1) Debility: (2) Osteomyelitis of left foot: (3) Hyperkalemia: (4) Hyponatremia: (5) Foot abscess, left: (6) Charcot foot due to diabetes mellitus: (7) Diabetes mellitus: (8) Coronary artery disease: (9) Hyperlipidemia: (10) Gastroesophageal reflux disease: (11) Gout: (12) Hypothyroidism: (13) Fecal impaction of colon: (14) Insomnia: (15) Nausea: (16) Depression: (17) Muscle spasm: (18) Osteoarthritis: (19) Opioid dependence: (20) Stroke: PLAN: 75 year old female with below past medical history hospitalized for osteomyelitis left diabetic foot, underwent modified Chopart amputation of left foot 12/13/[address] Magana, admitted to TCU with debility, here for rehabilitation, strengthening, intravenous antibiotics, prior to discharge home with . * Debility - PT/OT. * Pain - Tylenol 1000MG Q6H PRN pain (1-3), Morphine 6MG Q6H PRN pain (4-5), Oxycodone 5MG Q6H PRN pain (6-10). * Bowel - Miralax 17GM daily, Senna/colace 1 tablet QHS. * Adult immunization - Administer prevnar 13, pneumovax 23, fluzone, COVID19 vaccine as appropriate. * DVT prophylaxis - Hold, on dual antiplatelet therapy. * Gout - Allopurinol 100MG daily. * Hypertension - Coreg 25MG BID, Amlodipine 5MG BID. * Coronary Artery Disease - Coreg 25MG BID, Lisinopril 20MG twice daily, Imdur 60MG AM, 120MG QHS, Plavix 75MG daily, Aspirin 81MG daily, NTG 0.4MG Q5M PRN. * Yeast vaginitis - Fluconazole 150MG PO x 1 dose. * Nutrition - Glucerna shake 120ML 4x/day, MVI daily, Blue 1 packet twice daily. * Cough - Mucinex 600MG BID. * Diabetes Mellitus II - Lantus 25 units BID, Humalog 6 units BID. * Hypothyroidism - Levothyroxine 75MCG QHS. * Exocrine pancreatic insufficiency - Creon 1 capsule twice daily. * Allergic Rhinitis - Loratadine 10MG daily. * Skin irritation - Calmoseptine topical twice daily. * Osteomyelitis left diabetic foot status post amputation - Meropenem 1GM IV Q8H, Dakins topical daily, consult Dr. Magana, consult Dr. Webb. * Nausea - Reglan 10MG Q8H PRN. * GERD - Pantoprazole 20MG twice daily. * Hyperlipidemia - Pravastatin 40MG QHS. * Muscle spasm - Tizanidine 4MG Q8H PRN. * Insomnia - Trazodone 100MG QHS PRN. * Depression - Venlafaxine 100MG twice daily, stable chronic event management consultant use, GDR not recommended.
--- NOTE | 2020-12-15 08:11 | NURSING ---
wound photo: left foot
--- NOTE | 2020-12-15 08:12 | NURSING ---
wound photo: left foot
[2020-12-15] MEDS: Carvedilol 25 MG Tablet PO ×2 (08:34→17:21)
[2020-12-15] MEDS: Creon 24,000 unit DR Capsule 1 CAP PO ×2 (08:34→17:20)
[2020-12-15] MEDS: Aspirin E.C. 81 MG Tablet PO (08:34)
[2020-12-15] MEDS: Allopurinol 100 MG Tablet PO (08:35)
[2020-12-15] MEDS: Multivitamins,Ther W-Minerals Tablet 1 TABLET PO (08:35)
[2020-12-15] MEDS: oxyCODONE 5 MG Tablet PO ×3 (08:40→21:01)
[2020-12-15] MEDS: Insulin Lispro 100 UNIT/ML INSULN.PEN 6 UNIT SC ×2 (08:43→17:24)
--- NOTE | 2020-12-15 09:36 | PCM.PN.ID ---
Physical Exam Narrative Feeling better today, picc in place, no fever Const alert and no apparent distress General Appearance: cooperative Resp normal air movement and clear to auscultation bilaterally Cardio regular rate and regular rhythm GI normal to inspection, nondistended, normoactive bowel sounds Skin Skin Narrative: reviewed photos of foot ID ID: Route of nutrition/ use of supplements: [] Nutritional Intake: [] IV Site: [] Maloney Catheter: [] Assessment & Plan Assessment/Plan (1) Osteomyelitis of left foot: PLAN: MRI showed osteo and abscess. Foot cx with morganella, strep, MS S. simulans, actino, anaerobe. Cont meropenem to have actino coverage. Taken to OR 12/[address] Magana for partial amputation. Surg cx neg so far. May only need short course of abx if margins are clear. Will follow
[2020-12-15 10:50] LABS: Bedside Glucose 293 mg/dL (70-110)
[2020-12-15] MEDS: FLUCONAZOLE 150 MG TABLET PO (10:53)
[2020-12-15] MEDS: Tuberculin,Purif.prot.deriv. 50 TU/ML Vial 0.1 ML ID (10:54)
[2020-12-15] MEDS: Glucerna Shake 120 ML LIQUID PO (12:09)
--- NOTE | 2020-12-15 14:01 | CASEMGMT ---
Addendum entered by Nika Rincon 12/15/20 14:02: Patient active with Palliative Care through [facility] prior to admission. Original Note: Social Work See attached for completed assessment. MOLST form completed with patient. Patient wishes to be a Full Code. Patient plans to discharge to home with spouse. Will continue to follow. Brit BURLESON, SAL-S
--- NOTE | 2020-12-15 16:13 | PCM.PN.RX ---
Progress Note - Pharmacy Subjective: [facility] ADMISSION Objective: Allergies doxycycline Allergy (Severe, Verified 12/08/20 17:34) all over body hives and itching atorvastatin calcium [From Lipitor] Allergy (Verified 12/08/20 17:34) Unknown bupropion HCl [From Wellbutrin] Allergy (Verified 12/08/20 17:34) Unknown mannitol [From Reclast] Allergy (Verified 12/08/20 17:34) joint pain, unable to breathe, unable to walk propoxyphene napsylate [From Darvocet-N 100] Allergy (Verified 12/08/20 17:34) Unknown Quinolones Allergy (Verified 12/08/20 17:34) Unknown Tetanus Vaccines and Toxoid [Tetanus Vaccines & Toxoid] Allergy (Verified 12/08/20 17:34) Chest tightness tizanidine Allergy (Verified 12/08/20 17:34) Unknown zoledronic acid [From Reclast] Allergy (Verified 12/08/20 17:34) joint pain,unable to breathe, unaable to walk JOINT PAIN,UNABLE TO BREATHE,UNABLE TO WALK pravastatin Adverse Reaction (Severe, Verified 12/08/20 17:34) Myalgias gemfibrozil Adverse Reaction (Intermediate, Verified 12/08/20 17:34) Unknown NSAIDS (Non-Steroidal Anti-Inflamma Adverse Reaction (Verified 12/08/20 17:34) Other Current Medications Generic Name Dose Route Start Last Admin Trade Name Freq PRN Reason Stop Dose Admin Acetaminophen 1,000 mg 12/15/20 08:15 Acetaminophen 500 Mg Tablet PO Q6H PRN PRN Pain Score 1-3 Allopurinol 100 mg 12/15/20 08:00 12/15/20 08:35 Allopurinol 100 Mg Tablet PO 100 mg DAILYCM SHAHBAZ Administration Amlodipine Besylate 5 mg 12/15/20 06:00 12/15/20 04:45 Amlodipine 5 Mg Tablet PO 5 mg BID SHAHBAZ Administration Aspirin 81 mg 12/15/20 08:00 12/15/20 08:34 Aspirin E.C. 81 Mg Tablet PO 81 mg BREAKFAST SHAHBAZ Administration Calamine/Phenol 1 applic 12/15/20 06:00 12/15/20 07:22 Menthol/Lanolin/Calamine/Znox 113 Gm Tube TOPICAL 1 applic BID SHAHBAZ Administration Protocol Carvedilol 25 mg 12/15/20 08:00 12/15/20 08:34 Carvedilol 25 Mg Tablet PO 25 mg BIDCM [facility] Administration Clopidogrel Bisulfate 75 mg 12/15/20 06:00 12/15/20 04:45 Clopidogrel Bisulfate 75 Mg Tablet PO 75 mg DAILY [facility] Administration Guaifenesin 600 mg 12/15/20 06:00 12/15/20 04:45 Guaifenesin 600 Mg Tablet PO 600 mg BID [facility] Administration Meropenem 1 gm/ Sodium 100 mls @ 33 mls/hr 12/15/20 06:00 12/15/20 14:41 Chloride IV 33 mls/hr Q8 [facility] Administration Insulin Glargine 25 units 12/15/20 06:00 12/15/20 07:09 Insulin Glargine 100 Units/Ml Pen SC 25 units BID [facility] Administration Insulin Human Lispro 6 unit 12/15/20 17:00 12/15/20 08:43 Insulin Lispro 100 Unit/Ml [facility]uln.Pen SC [facility] Isosorbide Mononitrate 60 mg 12/15/20 06:00 12/15/20 04:44 Isosorbide Mononitrate 60 Mg Tablet PO 60 mg DAILY [facility] Administration Isosorbide Mononitrate 120 mg 12/15/20 22:00 Isosorbide Mononitrate 120 Mg Tablet PO QHS [facility] Levothyroxine Sodium 75 mcg 12/15/20 22:00 Levothyroxine 75 Mcg Tablet PO QHS [facility] Lisinopril 20 mg 12/15/20 06:00 12/15/20 04:46 Lisinopril 20 Mg Tablet PO 20 mg BID [facility] Administration Loratadine 10 mg 12/15/20 06:00 12/15/20 04:40 Loratadine 10 Mg Tablet PO 10 mg DAILY [facility] Administration Metoclopramide HCl 10 mg 12/14/20 23:12 Metoclopramide 10 Mg Tablet PO Q8H PRN PRN Nausea Morphine Sulfate 6 mg 12/14/20 23:12 12/15/20 01:09 Morphine (Oral Solution) 10mg/0.5ml Syringe PO 6 mg Q6H PRN PRN Administration Pain 4-5 Multivitamins/Minerals 1 tablet 12/15/20 08:00 12/15/20 08:35 Multivitamins,Ther W-Minerals Tablet PO 1 tablet BREAKFAST SHAHBAZ Administration Nitroglycerin 0.4 mg 12/14/20 23:12 Nitroglycerin (Inpatient Use) 0.4 Mg Tab.Subl SL Q5M PRN chest pain Nutritional Formula 1 packet 12/15/20 08:00 12/15/20 08:34 Nutritional Supplement (Blue) Packet PO 1 packet BIDCM SHAHBAZ Administration Nutritional Formula (Lactose Free) 120 ml 12/15/20 06:00 12/15/20 12:09 Glucerna Shake 120 Ml Liquid PO 120 ml 4X/DAY SHAHBAZ Administration Oxycodone HCl 5 mg 12/14/20 23:12 12/15/20 14:48 Oxycodone 5 Mg Tablet PO 5 mg Q6H PRN PRN Administration Pain Score 6-10 Pancrelipase 1 capsule 12/15/20 08:00 12/15/20 08:34 Creon 24,[address] Capsule PO 1 capsule BIDCM SHAHBAZ Administration Pantoprazole Sodium 20 mg 12/15/20 06:00 12/15/20 04:45 Pantoprazole Sodium 20 Mg Tablet PO 20 mg BID SHAHBAZ Administration Polyethylene Glycol 17 gm 12/15/20 06:00 12/15/20 04:45 Polyethylene Glycol 3350 17 Gm Packet PO Not Given DAILY [facility] Pravastatin Sodium 40 mg 12/15/20 22:00 Pravastatin 40 Mg Tablet PO QHS [facility] Senna/Docusate Sodium 1 tablet 12/15/20 22:00 Senna/Docusate Sodium 1 Tablet PO QHS SHAHBAZ Tizanidine HCl 4 mg 12/14/20 23:12 12/15/20 04:40 Tizanidine Hcl 2 Mg Tablet PO 4 mg Q8H PRN PRN Administration Muscle Spasm Trazodone HCl 100 mg 12/14/20 23:12 Trazodone 100 Mg Tablet PO QHS PRN PRN Sleep Tuberculin PPD 0.1 ml 12/22/20 10:00 Tuberculin,Purif.Prot.Deriv. 50 Tu/Ml Vial ID 12/22/20 10:01 X1 ONE Venlafaxine HCl 100 mg 12/15/20 06:00 12/15/20 04:41 Venlafaxine Hcl 100 Mg Tablet PO 100 mg BID SHAHBAZ Administration Problem List (Last Reviewed 12/15/20 @ 07:[address] Adolfo Rush MD) Stroke (Acute) Opioid dependence (Acute) Osteoarthritis (Acute) Muscle spasm (Acute) Depression (Acute) Nausea (Acute) Insomnia (Acute) Fecal impaction of colon (Acute) Hypothyroidism (Acute) Gout (Acute) Gastroesophageal reflux disease (Acute) Hyperlipidemia (Acute) Coronary artery disease (Acute) Diabetes mellitus (Acute) Charcot foot due to diabetes mellitus (Acute) Foot abscess, left (Acute) Hyponatremia (Acute) Hyperkalemia (Acute) Osteomyelitis of left foot (Acute) Debility (Acute) Type 2 diabetes mellitus with diabetic polyneuropathy (Acute) Abscess of left foot (Acute) Osteomyelitis of left foot (Acute) Charcot's joint of left foot (Chronic) Vital Signs Temp Pulse Resp BP Pulse Ox 98.2 F 85 16 143/62 H 93 12/15/20 04:48 12/15/20 04:48 12/15/20 04:48 12/15/20 04:48 12/15/20 04:48 Oxygen Delivery Method Room Air Weight: 81.9 kg Body Mass Index (BMI) 30.9 Sodium 138 mmol/L (136-145) 12/15/20 05:24 Potassium 4.2 mmol/L (3.5-5.1) 12/15/20 05:24 Chloride 108 mmol/L (98-107) H 12/15/20 05:24 Carbon Dioxide 24.0 mmol/L (21.0-32.0) 12/15/20 05:24 Anion Gap 6 (5-15) 12/15/20 05:24 BUN 37 mg/dL (7-18) H 12/15/20 05:24 Creatinine 1.29 mg/dL (0.55-1.02) H 12/15/20 05:24 Est GFR (MDRD) Af Amer 52 mL/min (>60) L 12/15/20 05:24 Est GFR (MDRD) Non-Af 43 mL/min (>60) L 12/15/20 05:24 BUN/Creatinine Ratio 28.7 RATIO (10-20) H 12/15/20 05:24 Glucose 130 mg/dL (74-106) H 12/15/20 05:24 Assessment/Plan: 1. Pain: Tylenol 1000mg PO Q6h PRN Pain 1-3, Morphine 6mg PO Q6h PRN Pain 4-5, Oxycodone 5mg PO Q6h PRN Pain 6-10. Please continue to monitor for S/S increased/decreased pain, PRN medication usage, excessive sedation. 2. L-foot Osteomyelitis S/P amputation: Merrem 1g IV Q8h. Please continue to monitor for resolution of infection, renal function. ID consulted and will determine stop date of antibiotics per consult note. 3. CAD/HTN: Norvasc 5mg PO BID, Aspirin 81mg PO Daily, Coreg 25mg PO BID, Plavix 75mg PO Daily, Imdur 60mg PO QAM and 120mg QHS, Lisinopril 20mg PO BID, Pravastatin 40mg PO QHS, Nitrostat Q5min PRN. Please continue to monitor BP, HR, S/S bleeding/bruising, S/S angina, lipid panel annually or sooner if clinically indicated. 4. Diabetes Type II: Lantus 25 units SC BID, Humalog 6 units BIDCM. Please continue to monitor blood glucose, A1C, S/S hyper/hypoglycemia. 5. Hypothyroidism: Synthroid 75mcg PO Daily. Please continue to monitor thyroid panel labs as clinically indicated, observe for S/S hyper/hypothyroidism. 6. Gout: Allopurinol 100mg PO Daily. Please continue to monitor for gout flare-ups, renal function, medication effectiveness. 7. Allergic Rhinitis/Cough: Claritin 10mg PO Daily, Mucinex 600mg PO BID. Please continue to monitor for medication effectiveness, encourage patient to stay hydrated to aid in mucus clearing. 8. Nausea: Reglan 10mg PO Q8h PRN. Please continue to monitor PRN usage, improvement in nausea symptoms. 9. Pancreatic insufficiency: Creon 24,000 unit PO BIDCM. Please continue to monitor for medication effectiveness, labs as clinically indicated. 10. GERD: Protonix 20mg PO BID. Please continue to monitor for GERD flare-ups. Please encourage nonpharmacologic treatments also to help reduce GERD symptoms. *11. Muscle Spasm: Zanaflex 4mg PO Q8h PRN. Please continue to monitor for PRN usage. Please use as sparingly as possible given the patient also has opiates ordered, monitor for excessive sedation. Please consider a dose reduction if clinically appropriate, thank you. 12. Insomnia: Trazodone 100mg PO QHS PRN. Please continue to monitor for medication effectiveness, PRN usage, oversedation given pt also has muscle relaxants and opiates ordered. 13. General Wellness: MVI 1 tab PO Daily. Please continue to monitor Psychotropic Medications: 14. Depression: Effexor 100mg PO BID. Please see H/P regarding GDR recommendation, thank you. Unnecessary Medications: None Bowel Regimen: Miralax 17g PO Daily, Senna/Docusate 1 tab PO QHS. Please continue to monitor for increased/decreased constipation and/or diarrhea. Date of Note:: 12/15/20
[2020-12-15 16:44] VITALS: BP 142/56; PULSE 79; RESP 16; TEMP 36.7; O2SAT 97
[2020-12-15 17:21] LABS: Bedside Glucose 134 mg/dL (70-110)
[2020-12-15] MEDS: Pravastatin 40 MG Tablet PO (21:05)
[2020-12-15] MEDS: Levothyroxine 75 MCG Tablet PO (21:05)
[2020-12-15 21:45] LABS: Bedside Glucose 162 mg/dL (70-110)
[2020-12-15 22:00] VITALS: BP 156/50; PULSE 83; RESP 14; RESP 16; O2SAT 90; O2SAT 93
[2020-12-15] MEDS: 0.9% Saline Lock 10 ML Syringe IV (22:45)
[2020-12-15] MEDS: traZODone 100 MG Tablet PO (22:55)
[2020-12-16] MEDS: Acetaminophen 500 MG Tablet 1000 MG PO ×3 (02:44→16:19)
[2020-12-16 05:40] VITALS: BP 141/57; PULSE 76; RESP 16; TEMP 35.9; O2SAT 94
[2020-12-16] MEDS: 0.9% Saline Lock 10 ML Syringe IV (05:44)
[2020-12-16] MEDS: Isosorbide Mononitrate 60 MG Tablet PO (05:51)
[2020-12-16] MEDS: Pantoprazole Sodium 20 MG Tablet PO ×2 (05:51→17:25)
[2020-12-16] MEDS: amLODIPine 5 MG Tablet PO ×2 (05:51→17:24)
[2020-12-16] MEDS: guaiFENesin 600 MG Tablet PO ×2 (05:51→17:24)
[2020-12-16] MEDS: Loratadine 10 MG Tablet PO (05:51)
[2020-12-16] MEDS: Menthol/Lanolin/Calamine/Znox 113 GM Tube 1 APPLIC TOPICAL ×2 (05:51→17:27)
[2020-12-16] MEDS: Lisinopril 20 MG Tablet PO ×2 (05:51→17:25)
[2020-12-16] MEDS: Clopidogrel Bisulfate 75 MG Tablet PO (05:53)
[2020-12-16 05:56] LABS: Bedside Glucose 107 mg/dL (70-110)
--- NOTE | 2020-12-16 07:29 | NURSING ---
Declined 0600 miralax, states will take later this morning. No distress observed or reported. Denies requests. Call light in reach.
[2020-12-16 07:34] LABS: Anion Gap 7 (5-15); BUN 42 mg/dL (7-18); BUN/Creat Ratio 32.8 RATIO (10-20); Calcium,Total 8.1 mg/dL (8.5-10.1); Chloride 109 mmol/L (98-107); Creatinine, Serum 1.28 mg/dL (0.55-1.02); EST Glomerular Filtration Rate 43 mL/min (>60); Est Glom Filt Rate - Afr Amer 53 mL/min (>60); Glucose 133 mg/dL (74-106); Potassium 4.2 mmol/L (3.5-5.1); Sodium Level 140 mmol/L (136-145)
[2020-12-16] MEDS: Carvedilol 25 MG Tablet PO ×2 (08:45→17:31)
[2020-12-16] MEDS: Aspirin E.C. 81 MG Tablet PO (08:45)
[2020-12-16] MEDS: Multivitamins,Ther W-Minerals Tablet 1 TABLET PO (08:45)
[2020-12-16] MEDS: Creon 24,000 unit DR Capsule 1 CAP PO ×2 (08:45→17:23)
[2020-12-16] MEDS: Allopurinol 100 MG Tablet PO (08:45)
[2020-12-16] MEDS: Insulin Lispro 100 UNIT/ML INSULN.PEN 6 UNIT SC ×2 (08:46→17:26)
[2020-12-16] MEDS: oxyCODONE 5 MG Tablet PO ×2 (08:51→16:19)
[2020-12-16 11:11] LABS: Bedside Glucose 297 mg/dL (70-110)
--- NOTE | 2020-12-16 15:28 | CHAPLAIN ---
Type of Pastoral Visit ___ Initial Visit _x__ Follow-up Visit ___ On-call Visit ___ General Patient Visit ___ Spiritual Assessment ___ Family Conference ___ Bereavement ___ Rapid Response ___ Code Blue ___ Other (describe below) Pastoral Care Referral From _x__ Patient ___ Family ___ Nurse ___ Physician ___ Armor Officer ___ Vp Strategic Planning ___ Other (describe below) Sacrament/Intervention _x__ Active listening ___ Anointing ___ Tenriism ___ Bereavement ___ Communion _x__ Sharron exploration ___ _x__ Life review _x__ Prayer ___ Reconciliation ___ Sacrament of Sick _x__ Supportive presence ___ Wedding ___ Other (describe below) Pastoral Comments
[2020-12-16 16:00] VITALS: BP 134/56; PULSE 89; RESP 16; TEMP 36.8; O2SAT 97
[2020-12-16 17:10] LABS: Bedside Glucose 133 mg/dL (70-110)
[2020-12-16 21:30] VITALS: BP 137/51; PULSE 79; RESP 16
[2020-12-16 21:31] LABS: Bedside Glucose 121 mg/dL (70-110)
[2020-12-16] MEDS: Levothyroxine 75 MCG Tablet PO (21:46)
[2020-12-16] MEDS: Pravastatin 40 MG Tablet PO (21:46)
[2020-12-16] MEDS: tiZANidine HCl 2 MG Tablet 4 MG PO (22:17)
[2020-12-17] MEDS: oxyCODONE 5 MG Tablet PO ×3 (00:13→15:33)
[2020-12-17] MEDS: traZODone 100 MG Tablet PO (00:15)
[2020-12-17] MEDS: 0.9% Saline Lock 10 ML Syringe IV ×2 (01:03→05:52)
[2020-12-17] MEDS: Acetaminophen 500 MG Tablet 1000 MG PO ×2 (01:09→14:25)
[2020-12-17 05:00] VITALS: BP 157/69; PULSE 86; RESP 16; TEMP 37; O2SAT 96
[2020-12-17] MEDS: amLODIPine 5 MG Tablet PO ×2 (05:59→17:36)
[2020-12-17] MEDS: Clopidogrel Bisulfate 75 MG Tablet PO (05:59)
[2020-12-17] MEDS: Loratadine 10 MG Tablet PO (05:59)
[2020-12-17] MEDS: Pantoprazole Sodium 20 MG Tablet PO ×2 (05:59→17:36)
[2020-12-17] MEDS: Isosorbide Mononitrate 60 MG Tablet PO ×2 (05:59→22:11)
[2020-12-17] MEDS: Menthol/Lanolin/Calamine/Znox 113 GM Tube 1 APPLIC TOPICAL ×2 (05:59→17:38)
[2020-12-17] MEDS: Lisinopril 20 MG Tablet PO ×2 (05:59→17:36)
[2020-12-17] MEDS: guaiFENesin 600 MG Tablet PO ×2 (05:59→17:36)
[2020-12-17 06:41] LABS: Bedside Glucose 131 mg/dL (70-110)
[2020-12-17 08:32] LABS: Anion Gap 6 (5-15); BUN 44 mg/dL (7-18); BUN/Creat Ratio 40.7 RATIO (10-20); Calcium,Total 8.4 mg/dL (8.5-10.1); Chloride 111 mmol/L (98-107); Creatinine, Serum 1.08 mg/dL (0.55-1.02); EST Glomerular Filtration Rate 53 mL/min (>60); Est Glom Filt Rate - Afr Amer 64 mL/min (>60); Estimated Creatinine Clearance 40.06 ml/min; Glucose 97 mg/dL (74-106); Potassium 4.3 mmol/L (3.5-5.1); Sodium Level 141 mmol/L (136-145)
[2020-12-17] MEDS: Insulin Lispro 100 UNIT/ML INSULN.PEN 6 UNIT SC ×2 (08:36→17:37)
[2020-12-17] MEDS: Allopurinol 100 MG Tablet PO (08:37)
[2020-12-17] MEDS: Aspirin E.C. 81 MG Tablet PO (08:37)
[2020-12-17] MEDS: Carvedilol 25 MG Tablet PO ×2 (08:37→17:36)
[2020-12-17] MEDS: Multivitamins,Ther W-Minerals Tablet 1 TABLET PO (08:37)
[2020-12-17] MEDS: Creon 24,000 unit DR Capsule 1 CAP PO ×2 (08:37→17:36)
[2020-12-17 11:40] LABS: Bedside Glucose 114 mg/dL (70-110)
[2020-12-17 14:40] VITALS: BP 136/55; PULSE 91; RESP 17; TEMP 36.3; O2SAT 99
[2020-12-17 16:30] LABS: Bedside Glucose 123 mg/dL (70-110)
[2020-12-17 21:36] LABS: Bedside Glucose 149 mg/dL (70-110)
[2020-12-17] MEDS: Pravastatin 40 MG Tablet PO (22:12)
[2020-12-17] MEDS: Levothyroxine 75 MCG Tablet PO (22:12)
[2020-12-17] MEDS: tiZANidine HCl 2 MG Tablet 4 MG PO (23:03)
[2020-12-18 00:11] VITALS: PULSE 71; RESP 14
[2020-12-18] MEDS: oxyCODONE 5 MG Tablet PO ×2 (03:51→17:14)
[2020-12-18 03:58] VITALS: BP 149/52; PULSE 72; RESP 12; TEMP 36.6; O2SAT 98
[2020-12-18] MEDS: Menthol/Lanolin/Calamine/Znox 113 GM Tube 1 APPLIC TOPICAL ×2 (06:13→17:15)
[2020-12-18] MEDS: Loratadine 10 MG Tablet PO (06:14)
[2020-12-18] MEDS: Isosorbide Mononitrate 60 MG Tablet PO (06:16)
[2020-12-18] MEDS: amLODIPine 5 MG Tablet PO ×2 (06:18→17:14)
[2020-12-18] MEDS: guaiFENesin 600 MG Tablet PO ×2 (06:18→17:14)
[2020-12-18] MEDS: Pantoprazole Sodium 20 MG Tablet PO ×2 (06:19→17:14)
[2020-12-18] MEDS: Clopidogrel Bisulfate 75 MG Tablet PO (06:19)
[2020-12-18] MEDS: Lisinopril 20 MG Tablet PO ×2 (06:20→17:14)
[2020-12-18 06:31] LABS: Bedside Glucose 77 mg/dL (70-110)
[2020-12-18] MEDS: Acetaminophen 500 MG Tablet 1000 MG PO ×2 (06:32→16:10)
[2020-12-18 07:12] LABS: Anion Gap 4 (5-15); BUN 39 mg/dL (7-18); BUN/Creat Ratio 33.3 RATIO (10-20); Calcium,Total 8.9 mg/dL (8.5-10.1); Chloride 112 mmol/L (98-107); Creatinine, Serum 1.17 mg/dL (0.55-1.02); EST Glomerular Filtration Rate 48 mL/min (>60); Est Glom Filt Rate - Afr Amer 58 mL/min (>60); Estimated Creatinine Clearance 36.98 ml/min; Glucose 96 mg/dL (74-106); Potassium 4.6 mmol/L (3.5-5.1); Sodium Level 140 mmol/L (136-145)
[2020-12-18] MEDS: Insulin Lispro 100 UNIT/ML INSULN.PEN 6 UNIT SC ×2 (08:29→17:16)
[2020-12-18] MEDS: Creon 24,000 unit DR Capsule 1 CAP PO ×2 (08:30→17:14)
[2020-12-18] MEDS: Aspirin E.C. 81 MG Tablet PO (08:30)
[2020-12-18] MEDS: Multivitamins,Ther W-Minerals Tablet 1 TABLET PO (08:30)
[2020-12-18] MEDS: Carvedilol 25 MG Tablet PO ×2 (08:30→17:14)
[2020-12-18] MEDS: Allopurinol 100 MG Tablet PO (08:30)
[2020-12-18 09:16] LABS: Bedside Glucose 129 mg/dL (70-110)
[2020-12-18 10:00] VITALS: PULSE 71; RESP 18; O2SAT 98
[2020-12-18 11:20] LABS: Bedside Glucose 238 mg/dL (70-110)
[2020-12-18] MEDS: tiZANidine HCl 2 MG Tablet 4 MG PO ×2 (12:21→20:18)
[2020-12-18] MEDS: 0.9% Saline Lock 10 ML Syringe IV ×2 (13:42→13:47)
[2020-12-18 13:45] VITALS: BP 149/54; PULSE 77; RESP 18; TEMP 36.3; O2SAT 98
[2020-12-18 16:20] LABS: Bedside Glucose 164 mg/dL (70-110)
[2020-12-18] MEDS: Pravastatin 40 MG Tablet PO (20:15)
[2020-12-18] MEDS: Levothyroxine 75 MCG Tablet PO (20:16)
[2020-12-18] MEDS: traZODone 100 MG Tablet PO (21:18)
[2020-12-18 21:51] LABS: Bedside Glucose 152 mg/dL (70-110)
[2020-12-19 00:46] LABS: Bedside Glucose 53 mg/dL (70-110)
[2020-12-19] MEDS: oxyCODONE 5 MG Tablet PO (00:49)
--- NOTE | 2020-12-19 01:02 | NURSING ---
pt awake, perspiring and c/o being hot. Blood sugar checked and was 53. Snack offered and eaten. Pt feeling better. will monitor
[2020-12-19 05:42] LABS: Anion Gap 5 (5-15); BUN 49 mg/dL (7-18); BUN/Creat Ratio 41.2 RATIO (10-20); Calcium,Total 8.2 mg/dL (8.5-10.1); Chloride 108 mmol/L (98-107); Creatinine, Serum 1.19 mg/dL (0.55-1.02); EST Glomerular Filtration Rate 47 mL/min (>60); Est Glom Filt Rate - Afr Amer 57 mL/min (>60); Estimated Creatinine Clearance 36.36 ml/min; Glucose 105 mg/dL (74-106); Sodium Level 137 mmol/L (136-145)
[2020-12-19] MEDS: Menthol/Lanolin/Calamine/Znox 113 GM Tube 1 APPLIC TOPICAL ×2 (05:54→18:31)
[2020-12-19] MEDS: Isosorbide Mononitrate 60 MG Tablet PO (05:55)
[2020-12-19] MEDS: Loratadine 10 MG Tablet PO (05:55)
[2020-12-19] MEDS: Clopidogrel Bisulfate 75 MG Tablet PO (05:56)
[2020-12-19] MEDS: amLODIPine 5 MG Tablet PO ×2 (05:56→18:24)
[2020-12-19] MEDS: Pantoprazole Sodium 20 MG Tablet PO ×2 (05:56→18:24)
[2020-12-19] MEDS: guaiFENesin 600 MG Tablet PO ×2 (05:56→18:23)
[2020-12-19] MEDS: Lisinopril 20 MG Tablet PO ×2 (05:58→18:24)
[2020-12-19 06:20] VITALS: BP 134/60; PULSE 75; RESP 16; TEMP 36.4; O2SAT 99
[2020-12-19 06:20] LABS: Bedside Glucose 103 mg/dL (70-110)
--- NOTE | 2020-12-19 08:03 | NURSING ---
wound photo: left foot
--- NOTE | 2020-12-19 08:04 | NURSING ---
wound photo: left foot
--- NOTE | 2020-12-19 08:19 | PCM.WC.PN ---
History of Present Illness Date of Service: 12/19/20 Chief Complaint: Left foot History of Wound: This is 75-year-old female with diabetic neuropathy history of Charcot left foot with rocker-bottom deformity, coronary artery disease and other comorbidities has a recurrent ulcer. She has had delayed healing of her plantar foot ulcer secondary to rocker-bottom Charcot foot deformity, recurrent ulcers and infections. She completed left lower extremity vascular surgery intervention procedure and had this successfully completed at [facility] with Dr. Pang. he denies fever, chill, nausea, vomiting, calf pain, or diarrhea. She has been out of town vacation and reports she stayed off her foot. She reports onset of redness yesterday afternoon with some swelling and some increased pain. Subjective Subjective Patietn seen and examined bedside, resting comfortably. She relates some diarrhea from the antibiotics. No other pedal complaint Objective Data Objective Data Vital Signs: Vital Signs Temp Pulse Resp BP Pulse Ox 97.6 F L 75 16 134/60 H 99 12/19/20 06:20 12/19/20 06:20 12/19/20 06:20 12/19/20 06:20 12/19/20 06:20 Oxygen Delivery Method Room Air Weight: 81.9 kg Body Mass Index (BMI) 30.9 Intake & Output: Intake and Output for Last 24 Hours 12/17/20 12/18/20 12/19/20 23:59 23:59 23:59 Intake Total 900 / 900 1580 / 1580 100 / 100 Output Total 1100 / 1100 Balance 900 / 900 480 / 480 100 / 100 Medical Nutrition Assessment Dietitian: Nutrition Therapy Diagnosis Start: 12/15/20 10:55 Freq: Status: Active Protocol: Document 12/15/20 11:53 BP (Rec: 12/15/20 11:56 BP [id number]) Nutrition Malnutrition Evidence of Malnutrition Exists No Intake Problem Increased Nutrient Needs (specify) Etiology Increased protein needs related to wound healing Signs/Symptoms as evidenced by left foot amputation surgical incision. 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 Status Active Problem Recommendation Dietitian Recommendations/Changes Will provide Cardiac:CHO controlled diet. Continue Blue 1 pkt BID for wound healing. Will provide ensure pudding or magic cup with pt meals for additional daina/pro if consumed. Will provide additional nutrition education as warranted by pt prior to discharge. Provided & discussed [facility] Outpatient Diabetes Clinic Information for additional nutrition education if pt interested. Lab / Micro Data Result Diagrams: 12/15/20 05:24 12/19/20 05:19 Labs: Laboratory Results - last 24 hr 12/18/20 08:28: POC Glucose 129 H 12/18/20 10:55: POC Glucose 238 H 12/18/20 16:14: POC Glucose 164 H 12/18/20 21:26: POC Glucose 152 H 12/19/20 00:40: POC Glucose 53 L 12/19/20 05:19: Sodium 137, Potassium 5.0, Chloride 108 H, Carbon Dioxide 24.0, Anion Gap 5, BUN 49 H, Creatinine 1.19 H, Estim Creat Clear Calc 36.36, Est GFR (MDRD) Af Amer 57 L, Est GFR (MDRD) Non-Af 47 L, BUN/Creatinine Ratio 41.2 H, Glucose 105, Calcium 8.2 L 12/19/20 06:15: POC Glucose 103 Physical Exam Extremity Extremity Narrative: Left foot: Status post Chopart amputation with sutures intact without gapping or necrosis. There is mild dusky formation at the amputation margins at the incision intersection of the lateral side. There is no fluctuance or bogginess. No odor erythema or streaking or purulence. Negative Claudio and Elizondo sign left. Compartments remain soft to palpate left lower extremity. Capillary fill time is brisk to all margins of the amputation occluding a complex flap closure. DP/PT 2/4. Assessment/Plan Assessment/Plan (1) Abscess of left foot: CODE(S): L02.612 - Cutaneous abscess of left foot (2) Type 2 diabetes mellitus with diabetic polyneuropathy: CODE(S): E11.42 - Type 2 diabetes mellitus with diabetic polyneuropathy (3) Charcot's joint of left foot: CODE(S): M14.672 - Charcot's joint, left ankle and foot (4) Osteomyelitis of left foot: CODE(S): M86.9 - Osteomyelitis, unspecified PLAN: Re-evaluation performed and I discussed her case this morning. Clinically her amputation site appears stable without local signs of infection. There is one area of concern with mild duskiness. Her vital signs are stable and she is afebrile. It is noted that at the amputation level and surgery there was no evidence of infection or necrosis. Infectious Disease on consult and appreciated. Blood cultures negative. She continues on IV meropenem at this time. OR cultures are negative for bacterial growth. Wound care: Betadine wet-to-dry dressing was reapplied with Adaptic, gauze, abdominal pads, Kerlix, and Arjun wrap to be changed every other day. Keep dressing clean, dry and intact otherwise. No weightbearing left foot, keep left foot elevated. To use assistive device and work with PT and OT. It is noted she also had recent vascular surgery intervention in the outpatient setting and has optimized perfusion status. To ice and elevate for pain and inflammation management as well. Podiatry will continue to follow. Please do not hesitate to call if you have any questions.
--- NOTE | 2020-12-19 08:29 | PCM.PROGNOTE ---
Subjective Subjective Patient seen and examined bedside, resting comfortably. She relates some diarrhea from the antibiotics. No other pedal complaint Objective Data Objective Data Vital Signs: Vital Signs Temp Pulse Resp BP Pulse Ox 97.6 F L 75 16 134/60 H 99 12/19/20 06:20 12/19/20 06:20 12/19/20 06:20 12/19/20 06:20 12/19/20 06:20 Oxygen Delivery Method Room Air Weight: 81.9 kg Body Mass Index (BMI) 30.9 Intake & Output: Intake and Output for Last 24 Hours 12/17/20 12/18/20 12/19/20 23:59 23:59 23:59 Intake Total 900 / 900 1580 / 1580 100 / 100 Output Total 1100 / 1100 Balance 900 / 900 480 / 480 100 / 100 Medical Nutrition Assessment Dietitian: Nutrition Therapy Diagnosis Start: 12/15/20 10:55 Freq: Status: Active Protocol: Document 12/15/20 11:53 BP (Rec: 12/15/20 11:56 BP [id number]) Nutrition Malnutrition Evidence of Malnutrition Exists No Intake Problem Increased Nutrient Needs (specify) Etiology Increased protein needs related to wound healing Signs/Symptoms as evidenced by left foot amputation surgical incision. 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 Status Active Problem Recommendation Dietitian Recommendations/Changes Will provide Cardiac:CHO controlled diet. Continue Blue 1 pkt BID for wound healing. Will provide ensure pudding or magic cup with pt meals for additional daina/pro if consumed. Will provide additional nutrition education as warranted by pt prior to discharge. Provided & discussed [facility] Outpatient Diabetes Clinic Information for additional nutrition education if pt interested. Lab / Micro Data Result Diagrams: 12/15/20 05:24 12/19/20 05:19 Labs: Laboratory Results - last 24 hr 12/18/20 08:28: POC Glucose 129 H 12/18/20 10:55: POC Glucose 238 H 12/18/20 16:14: POC Glucose 164 H 12/18/20 21:26: POC Glucose 152 H 12/19/20 00:40: POC Glucose 53 L 12/19/20 05:19: Sodium 137, Potassium 5.0, Chloride 108 H, Carbon Dioxide 24.0, Anion Gap 5, BUN 49 H, Creatinine 1.19 H, Estim Creat Clear Calc 36.36, Est GFR (MDRD) Af Amer 57 L, Est GFR (MDRD) Non-Af 47 L, BUN/Creatinine Ratio 41.2 H, Glucose 105, Calcium 8.2 L 12/19/20 06:15: POC Glucose 103 Physical Exam Extremity Extremity Narrative: Left foot: Status post Chopart amputation with sutures intact without gapping or necrosis. There is mild dusky formation at the amputation margins at the incision intersection of the lateral side. There is no fluctuance or bogginess. No odor erythema or streaking or purulence. Negative Claudio and Elizondo sign left. Compartments remain soft to palpate left lower extremity. Capillary fill time is brisk to all margins of the amputation occluding a complex flap closure. DP/PT 2/4. Assessment & Plan Assessment/Plan (1) Abscess of left foot: (2) Type 2 diabetes mellitus with diabetic polyneuropathy: (3) Charcot's joint of left foot: (4) Osteomyelitis of left foot: PLAN: Re-evaluation performed and I discussed her case this morning. Clinically her amputation site appears stable without local signs of infection. There is one area of concern with mild duskiness. Her vital signs are stable and she is afebrile. It is noted that at the amputation level and surgery there was no evidence of infection or necrosis. Infectious Disease on consult and appreciated. Blood cultures negative. She continues on IV meropenem at this time. OR cultures are negative for bacterial growth. Wound care: Betadine wet-to-dry dressing was reapplied with Adaptic, gauze, abdominal pads, Kerlix, and Arjun wrap to be changed every other day. Keep dressing clean, dry and intact otherwise. No weightbearing left foot, keep left foot elevated. To use assistive device and work with PT and OT. It is noted she also had recent vascular surgery intervention in the outpatient setting and has optimized perfusion status. To ice and elevate for pain and inflammation management as well. Podiatry will continue to follow. Please do not hesitate to call if you have any questions.
[2020-12-19] MEDS: Creon 24,000 unit DR Capsule 1 CAP PO ×2 (08:58→18:21)
[2020-12-19] MEDS: Aspirin E.C. 81 MG Tablet PO (08:58)
[2020-12-19] MEDS: Multivitamins,Ther W-Minerals Tablet 1 TABLET PO (08:58)
[2020-12-19] MEDS: Allopurinol 100 MG Tablet PO (08:58)
[2020-12-19] MEDS: Carvedilol 25 MG Tablet PO ×2 (09:07→18:21)
[2020-12-19] MEDS: 0.9% Saline Lock 10 ML Syringe IV ×3 (09:15→22:00)
[2020-12-19 10:51] LABS: Bedside Glucose 254 mg/dL (70-110)
[2020-12-19] MEDS: tiZANidine HCl 2 MG Tablet 4 MG PO ×2 (11:56→22:40)
[2020-12-19 13:13] VITALS: BP 121/70; PULSE 69; RESP 18; TEMP 36.3; O2SAT 99
[2020-12-19] MEDS: morphine (oral solution) 10MG/0.5ML Syringe 6 MG PO (15:21)
[2020-12-19] MEDS: Acetaminophen 500 MG Tablet 1000 MG PO (16:04)
[2020-12-19 16:55] LABS: Bedside Glucose 167 mg/dL (70-110)
[2020-12-19] MEDS: Insulin Lispro 100 UNIT/ML INSULN.PEN 6 UNIT SC (20:12)
[2020-12-19 20:15] VITALS: O2SAT 94
[2020-12-19] MEDS: Levothyroxine 75 MCG Tablet PO (21:58)
[2020-12-19] MEDS: traZODone 100 MG Tablet PO (21:58)
[2020-12-19] MEDS: Pravastatin 40 MG Tablet PO (21:58)
[2020-12-19 22:01] LABS: Bedside Glucose 248 mg/dL (70-110)
[2020-12-20] MEDS: oxyCODONE 5 MG Tablet PO ×2 (01:24→13:34)
[2020-12-20] MEDS: morphine (oral solution) 10MG/0.5ML Syringe 6 MG PO (06:22)
[2020-12-20 06:25] VITALS: BP 130/63; PULSE 73; RESP 14; TEMP 36.1; O2SAT 96
[2020-12-20] MEDS: Pantoprazole Sodium 20 MG Tablet PO ×2 (06:26→17:42)
[2020-12-20] MEDS: Lisinopril 20 MG Tablet PO ×2 (06:26→17:41)
[2020-12-20] MEDS: Clopidogrel Bisulfate 75 MG Tablet PO (06:26)
[2020-12-20] MEDS: Loratadine 10 MG Tablet PO (06:26)
[2020-12-20] MEDS: Isosorbide Mononitrate 60 MG Tablet PO (06:26)
[2020-12-20] MEDS: guaiFENesin 600 MG Tablet PO ×2 (06:26→17:41)
[2020-12-20] MEDS: amLODIPine 5 MG Tablet PO ×2 (06:26→17:41)
[2020-12-20] MEDS: Menthol/Lanolin/Calamine/Znox 113 GM Tube 1 APPLIC TOPICAL ×2 (06:28→17:47)
[2020-12-20 06:31] LABS: Bedside Glucose 91 mg/dL (70-110)
[2020-12-20] MEDS: 0.9% Saline Lock 10 ML Syringe IV ×3 (06:31→22:14)
[2020-12-20] MEDS: Insulin Lispro 100 UNIT/ML INSULN.PEN 6 UNIT SC ×2 (08:09→17:40)
[2020-12-20] MEDS: Creon 24,000 unit DR Capsule 1 CAP PO ×2 (08:10→17:40)
[2020-12-20] MEDS: Allopurinol 100 MG Tablet PO (08:10)
[2020-12-20] MEDS: Multivitamins,Ther W-Minerals Tablet 1 TABLET PO (08:10)
[2020-12-20] MEDS: Carvedilol 25 MG Tablet PO ×2 (08:10→17:39)
[2020-12-20] MEDS: Aspirin E.C. 81 MG Tablet PO (08:10)
[2020-12-20 10:51] LABS: Bedside Glucose 204 mg/dL (70-110)
[2020-12-20 13:35] VITALS: BP 109/55; PULSE 66; RESP 16; TEMP 36.1; O2SAT 97
[2020-12-20 16:45] LABS: Bedside Glucose 161 mg/dL (70-110)
--- NOTE | 2020-12-20 16:46 | CASEMGMT ---
BIMS and PHQ9 interviews completed on this date for MDS assessment. MARTIN Oropeza
--- NOTE | 2020-12-20 17:07 | NURSING ---
R' HAVING DIARRHEA DAILY. N.O. PROBIOTIC.
[2020-12-20 21:00] VITALS: BP 125/54; PULSE 81; RESP 14
[2020-12-20] MEDS: tiZANidine HCl 2 MG Tablet 4 MG PO (21:03)
[2020-12-20] MEDS: Levothyroxine 75 MCG Tablet PO (21:04)
[2020-12-20] MEDS: Pravastatin 40 MG Tablet PO (21:05)
[2020-12-20] MEDS: traZODone 100 MG Tablet PO (22:18)
[2020-12-20 22:36] LABS: Bedside Glucose 141 mg/dL (70-110)
[2020-12-21] MEDS: 0.9% Saline Lock 10 ML Syringe IV ×3 (01:46→15:22)
[2020-12-21] MEDS: oxyCODONE 5 MG Tablet PO ×2 (01:51→08:34)
[2020-12-21 06:00] VITALS: BP 124/41; PULSE 78; RESP 18; TEMP 36.1; O2SAT 100
[2020-12-21] MEDS: Menthol/Lanolin/Calamine/Znox 113 GM Tube 1 APPLIC TOPICAL (06:16)
[2020-12-21] MEDS: amLODIPine 5 MG Tablet PO ×2 (06:27→17:53)
[2020-12-21] MEDS: guaiFENesin 600 MG Tablet PO ×2 (06:27→17:52)
[2020-12-21] MEDS: Lisinopril 20 MG Tablet PO ×2 (06:28→17:53)
[2020-12-21] MEDS: Isosorbide Mononitrate 60 MG Tablet PO (06:28)
[2020-12-21] MEDS: Clopidogrel Bisulfate 75 MG Tablet PO (06:28)
[2020-12-21] MEDS: Loratadine 10 MG Tablet PO (06:28)
[2020-12-21] MEDS: Pantoprazole Sodium 20 MG Tablet PO ×2 (06:28→17:53)
[2020-12-21] MEDS: Acetaminophen 500 MG Tablet 1000 MG PO ×2 (06:37→16:13)
[2020-12-21 06:40] LABS: Bedside Glucose 93 mg/dL (70-110)
[2020-12-21] MEDS: Carvedilol 25 MG Tablet PO ×2 (08:35→17:51)
[2020-12-21] MEDS: Aspirin E.C. 81 MG Tablet PO (08:35)
[2020-12-21] MEDS: Allopurinol 100 MG Tablet PO (08:35)
[2020-12-21] MEDS: Multivitamins,Ther W-Minerals Tablet 1 TABLET PO (08:35)
[2020-12-21] MEDS: Creon 24,000 unit DR Capsule 1 CAP PO ×2 (08:35→17:51)
[2020-12-21] MEDS: Insulin Lispro 100 UNIT/ML INSULN.PEN 6 UNIT SC ×2 (08:36→17:48)
[2020-12-21 10:56] LABS: Bedside Glucose 203 mg/dL (70-110)
[2020-12-21 13:54] VITALS: BP 129/53; PULSE 61; RESP 16; TEMP 36.6; O2SAT 98
--- NOTE | 2020-12-21 14:42 | PCM.PN.ID ---
Physical Exam Narrative Feeling ok, mild diarrhea, no fever Const alert and no apparent distress General Appearance: cooperative Resp normal air movement and clear to auscultation bilaterally Cardio regular rate and regular rhythm GI normal to inspection, nondistended, normoactive bowel sounds Skin no rashes or lesions noted ID ID: Route of nutrition/ use of supplements: [] Nutritional Intake: [] IV Site: [] Maloney Catheter: [] Assessment & Plan Assessment/Plan (1) Osteomyelitis of left foot: PLAN: MRI showed osteo and abscess. Foot cx with morganella, strep, MS S. simulans, actino, anaerobe. On meropenem. Taken to OR 12/[address] Magana for partial amputation. Surg cx neg. Path showed osteo but was not a clearance sample. Ok to stop abx and monitor. Per op note, no purulence/necrosis/infection at level of amputation. Will follow as needed
[2020-12-21] MEDS: morphine (oral solution) 10MG/0.5ML Syringe 6 MG PO (16:12)
[2020-12-21 16:16] LABS: Bedside Glucose 118 mg/dL (70-110)
--- NOTE | 2020-12-21 16:25 | CASEMGMT ---
Social Work Plan of care meeting held with pt and in attendance. Pt is participating in PT/OT and receiveing IV ATB Q8 and wound care. Pt is here under her Medicare Benefit which was explained to family. Pt plans to return home with her spouse at time of discharge. Pt spouse is working on getting a ramp installed into pt house. No discharge date set at this time. Will continue with treatment plan at this time. MARTIN Oropeza
[2020-12-21] MEDS: Metoclopramide 10 MG Tablet PO (19:50)
[2020-12-21 21:00] VITALS: PULSE 63; RESP 16; O2SAT 98
[2020-12-21 21:55] LABS: Bedside Glucose 96 mg/dL (70-110)
[2020-12-21 22:03] VITALS: BP 163/57; PULSE 72; RESP 20
--- NOTE | 2020-12-21 22:07 | NURSING ---
Addendum entered by Nadine Gonzalez 12/21/20 23:59: Presents in recliner with BLE elevated. Television on. Eyes closed. Responds to verbal stimuli. Pleasant and talkative. Reports feeling a little queasy. No acute distress observed or reported. Afebrile. VSS. Requests scotty crackers and peanut butter for snack, provided upon request. Denies further requests. Call light in reach. Original Note: Pt. declined HS medication as ordered due to taking several dinner medications at this time that patient had on bedside table, stating nausea and coughing up phlegm. Pt. observed expectorating clear phlegm. No emesis observed at this time. Pt. states plans to take muscle relaxer and sleeping pill though this HS. Pt. states she did not take scheduled effexor and creon as ordered at dinner time due to upset stomach. Pt. reports having episodes of nausea and coughing up phlegm at home and states takes metoclopramide with positive effect at home and it fixes it right away. Pt also reports dry heaving at home until I almost pass out. Pt. reports PRN dose of Metoclopramide as ineffective at this time. Aaliyah codie and crackers provided per request. Pt observed taking coreg, norvasc, lisinopril and protonix that were due at dinner and discarded creon and effexor. No acute distress observed at this time. VSS. Will continue to monitor.
[2020-12-21 23:40] VITALS: BP 151/61; PULSE 79; RESP 14; TEMP 36.4
[2020-12-22] MEDS: tiZANidine HCl 2 MG Tablet 4 MG PO ×2 (00:10→22:54)
[2020-12-22] MEDS: 0.9% Saline Lock 10 ML Syringe IV ×2 (00:11→18:16)
[2020-12-22] MEDS: oxyCODONE 5 MG Tablet PO ×2 (01:00→18:03)
[2020-12-22 02:30] VITALS: BP 139/64; PULSE 75; RESP 14; TEMP 36.3; O2SAT 99
[2020-12-22 05:35] LABS: Absolute Lymphocyte Count 2.53 X10^3/uL (0.83-4.51); Basophil# 0.04 X10^3/uL; Basophil% 0.6 % (0-1); Eosinophil# 0.51 X10^3/uL; Eosinophils% 7.4 % (0-5); Hematocrit 31.9 % (37-47); Lymphocyte # 2.53 X10^3/ul (0.83-4.51); Lymphocyte % 36.9 % (19-41); Mean Corp Hgb Conc 31.3 g/dL (32-36); Mean Platelet Vol. 8.8 fl (6.2-12.0); Monocyte# 0.78 X10^3/uL; Monocyte% 11.4 % (0-10); NRBC Flagged by Analyzer 0 % (0-5); Neutrophil # 2.99 X10^3/uL (2.7-7.7); Neutrophil % 43.6 % (47-70); Platelet Count 279 K/mm3 (150-450); RBC Distribution Width CV 14.7 % (11.6-14.6); RBC Distribution Width SD 46.6 fl (35.1-43.9); Red Blood Count 3.71 M/mm3 (4.2-5.4); White Blood Count 6.9 K/mm3 (4.4-11.0)
[2020-12-22] MEDS: Menthol/Lanolin/Calamine/Znox 113 GM Tube 1 APPLIC TOPICAL (06:22)
[2020-12-22] MEDS: Isosorbide Mononitrate 60 MG Tablet PO (06:23)
[2020-12-22] MEDS: Lisinopril 20 MG Tablet PO ×2 (06:23→18:08)
[2020-12-22] MEDS: Loratadine 10 MG Tablet PO (06:23)
[2020-12-22] MEDS: Clopidogrel Bisulfate 75 MG Tablet PO (06:23)
[2020-12-22] MEDS: amLODIPine 5 MG Tablet PO ×2 (06:23→18:27)
[2020-12-22 06:25] LABS: Bedside Glucose 78 mg/dL (70-110)
[2020-12-22] MEDS: Pantoprazole Sodium 20 MG Tablet PO ×2 (06:25→18:27)
[2020-12-22] MEDS: guaiFENesin 600 MG Tablet PO ×2 (06:32→18:27)
[2020-12-22 06:43] VITALS: BP 157/67; PULSE 67; RESP 18; TEMP 36.4; O2SAT 96
[2020-12-22] MEDS: Aspirin E.C. 81 MG Tablet PO (08:41)
[2020-12-22] MEDS: Creon 24,000 unit DR Capsule 1 CAP PO ×2 (08:41→18:08)
[2020-12-22] MEDS: Carvedilol 25 MG Tablet PO ×2 (08:41→18:08)
[2020-12-22] MEDS: Multivitamins,Ther W-Minerals Tablet 1 TABLET PO (08:41)
[2020-12-22] MEDS: Allopurinol 100 MG Tablet PO (08:41)
[2020-12-22 08:56] LABS: Bedside Glucose 115 mg/dL (70-110)
[2020-12-22 10:40] LABS: Bedside Glucose 283 mg/dL (70-110)
--- NOTE | 2020-12-22 10:48 | PN_ITS ---
Subjective Subjective Patient seen and examined resting comfortably. Patient denies any new pedal complaints. Patient denies any nausea, fever, chills, chest pain, shortness of breath, cough, streaking, purulence, vomiting. Objective Data Objective Data Vital Signs: Vital Signs Temp Pulse Resp BP Pulse Ox 97.6 F L 67 18 157/67 H 96 12/22/20 06:43 12/22/20 06:43 12/22/20 06:43 12/22/20 06:43 12/22/20 06:43 Oxygen Delivery Method Room Air Weight: 81.511 kg Body Mass Index (BMI) 30.9 Intake & Output: Intake and Output for Last 24 Hours 12/20/20 12/21/20 12/22/20 23:59 23:59 23:59 Intake Total / 1652.5 / 1652.5 Balance / 1652.5 / 1652.5 Medical Nutrition Assessment Dietitian: Nutrition Therapy Diagnosis Start: 12/15/20 10:55 Freq: Status: Active Protocol: Document 12/21/20 14:51 SLA (Rec: 12/21/20 14:51 SLA [id number]) Nutrition Malnutrition Evidence of Malnutrition Exists No Intake Problem Increased Nutrient Needs (specify) Etiology Increased protein needs related to wound healing Signs/Symptoms as evidenced by left foot amputation surgical incision and need for Blue bid Status Active Problem Inadequate Oral Intake Etiology related to decreased appetite and lack of motivation to consume sufficient energy due to nausea Signs/Symptoms as evidenced by pt with fair intake consuming ~50% of meals during inpatient stay, 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 Status Resolved Problem Recommendation Dietitian Recommendations/Changes Will continue to provide Cardiac:CHO controlled diet. Continue Blue 1 pkt BID for wound healing. to continue bringing premier protein for res while on TCU. Will provide additional nutrition education as warranted by pt prior to discharge. Lab / Micro Data Result Diagrams: 12/22/20 05:24 12/19/20 05:19 Labs: Laboratory Results - last 24 hr 12/21/20 10:45: POC Glucose 203 H 12/21/20 16:08: POC Glucose 118 H 12/21/20 21:45: POC Glucose 96 12/22/20 05:24: WBC 6.9, RBC 3.71 L, Hgb 10.0 L, Hct 31.9 L, MCV 86.0, MCH 27.0, MCHC 31.3 L, RDW Std Deviation 46.6 H, RDW Coeff of Marco 14.7 H, Plt Count 279, MPV 8.8, Immature Gran % (Auto) 0.100, Neut % (Auto) 43.6 L, Lymph % (Auto) 36.9, [place] % (Auto) 11.4 H, Eos % (Auto) 7.4 H, Baso % (Auto) 0.6, Absolute Neuts (auto) 3.0, Absolute Lymphs (auto) 2.53, Nucleated RBC % 0 12/22/20 06:20: POC Glucose 78 12/22/20 08:49: POC Glucose 115 H 12/22/20 10:36: POC Glucose 283 H Physical Exam Narrative extremity Narrative: Left foot: Status post Chopart amputation with sutures intact without gapping or necrosis. There is mild dusky formation at the amputation margins at the incision intersection of the lateral side which is improved with less dusky appearance and more red coloration noted at this area. There is no fluctuance or bogginess. No odor erythema or streaking or purulence. Negative Claudio and Elizondo sign left. Compartments remain soft to palpate left lower extremity. Capillary fill time is brisk to all margins of the amputation occluding a complex flap closure. DP/PT 2/4 Assessment & Plan Assessment/Plan (1) Abscess of left foot: (2) Type 2 diabetes mellitus with diabetic polyneuropathy: (3) Charcot's joint of left foot: (4) Osteomyelitis of left foot: PLAN: Re-evaluation performed and I discussed her case this morning. Clinically her amputation site appears stable without local signs of infection. There is one area of concern with mild duskiness this looks improved compared to last exam. Her vital signs are stable and she is afebrile. It is noted that at the amputation level and surgery there was no evidence of infection or necrosis. Infectious Disease on consult and appreciated. It is noted that antibiotics have been stopped. Blood cultures negative. Patient noted to have show parts amputation on 12/13/[address] Magana. OR post lavage swab cultures are negative for bacterial growth. Pathology for amputated portion of foot removed bone was positive for chronic osteomyelitis. Should be noted that this was bone that was removed completely. Remaining bone was not sent to pathology for fear of seeding any potential infection. Remaining bone showed no signs of infection during surgery Wound care: Betadine wet-to-dry dressing was reapplied with Adaptic, gauze, abdominal pads, Kerlix, and Arjun wrap to be changed every other day. Keep dressing clean, dry and intact otherwise. No weightbearing left foot, keep left foot elevated. To use assistive device and work with PT and OT. It is noted she also had recent vascular surgery intervention in the outpatient setting and has optimized perfusion status. To ice and elevate for pain and inflammation management as well. All questions answered Podiatry will continue to follow. Please do not hesitate to call if you have any questions. This note was generated with Get[employer] dictation software. It may contain incorrect words, spelling, and punctuation that were not noted in checking the note before signing.
[2020-12-22] MEDS: Tuberculin,Purif.prot.deriv. 50 TU/ML Vial 0.1 ML ID (11:46)
[2020-12-22] MEDS: Acetaminophen 500 MG Tablet 1000 MG PO (11:52)
[2020-12-22 15:13] VITALS: BP 155/53; PULSE 74; RESP 16; TEMP 36.5; O2SAT 99
[2020-12-22 15:50] VITALS: PULSE 68; O2SAT 98
[2020-12-22 17:10] LABS: Bedside Glucose 230 mg/dL (70-110)
[2020-12-22] MEDS: Insulin Lispro 100 UNIT/ML INSULN.PEN 6 UNIT SC (18:01)
[2020-12-22] MEDS: Metoclopramide 10 MG Tablet PO (18:03)
[2020-12-22 18:28] VITALS: BP 161/63; PULSE 76
[2020-12-22 21:26] LABS: Bedside Glucose 351 mg/dL (70-110)
[2020-12-22] MEDS: Pravastatin 40 MG Tablet PO (22:00)
[2020-12-22] MEDS: Levothyroxine 75 MCG Tablet PO (22:00)
[2020-12-22] MEDS: traZODone 100 MG Tablet PO (22:01)
[2020-12-22 23:06] LABS: Bedside Glucose 253 mg/dL (70-110)
[2020-12-23 05:00] VITALS: BP 149/59; PULSE 72; RESP 14; TEMP 36.2; O2SAT 98
[2020-12-23 06:10] LABS: Bedside Glucose 89 mg/dL (70-110)
[2020-12-23] MEDS: guaiFENesin 600 MG Tablet PO ×2 (06:14→18:41)
[2020-12-23] MEDS: amLODIPine 5 MG Tablet PO ×2 (06:14→18:41)
[2020-12-23] MEDS: Lisinopril 20 MG Tablet PO ×2 (06:14→18:41)
[2020-12-23] MEDS: Pantoprazole Sodium 20 MG Tablet PO ×2 (06:15→18:41)
[2020-12-23] MEDS: Loratadine 10 MG Tablet PO (06:15)
[2020-12-23] MEDS: Isosorbide Mononitrate 60 MG Tablet PO (06:15)
[2020-12-23] MEDS: Clopidogrel Bisulfate 75 MG Tablet PO (06:15)
[2020-12-23] MEDS: Menthol/Lanolin/Calamine/Znox 113 GM Tube 1 APPLIC TOPICAL ×2 (06:16→20:59)
[2020-12-23] MEDS: Acetaminophen 500 MG Tablet 1000 MG PO ×2 (06:19→12:35)
[2020-12-23 08:21] LABS: Anion Gap 4 (5-15); BUN 55 mg/dL (7-18); BUN/Creat Ratio 44.7 RATIO (10-20); Calcium,Total 8.3 mg/dL (8.5-10.1); Chloride 108 mmol/L (98-107); Creatinine, Serum 1.23 mg/dL (0.55-1.02); EST Glomerular Filtration Rate 45 mL/min (>60); Est Glom Filt Rate - Afr Amer 55 mL/min (>60); Estimated Creatinine Clearance 35.18 ml/min; Glucose 113 mg/dL (74-106); Potassium 5.3 mmol/L (3.5-5.1); Sodium Level 135 mmol/L (136-145)
[2020-12-23] MEDS: Creon 24,000 unit DR Capsule 1 CAP PO ×2 (08:40→18:41)
[2020-12-23] MEDS: Allopurinol 100 MG Tablet PO (08:40)
[2020-12-23] MEDS: Aspirin E.C. 81 MG Tablet PO (08:40)
[2020-12-23] MEDS: Multivitamins,Ther W-Minerals Tablet 1 TABLET PO (08:40)
[2020-12-23] MEDS: Carvedilol 25 MG Tablet PO ×2 (08:40→18:41)
[2020-12-23 11:16] LABS: Bedside Glucose 314 mg/dL (70-110)
[2020-12-23] MEDS: oxyCODONE 5 MG Tablet PO ×2 (14:07→20:58)
[2020-12-23] MEDS: Sodium Polystyrene Sulfonate 15 GM/60 ML UDC 30 GM PO (14:07)
[2020-12-23 14:43] VITALS: BP 128/78; PULSE 65; RESP 17; TEMP 36.8; O2SAT 98
[2020-12-23 16:01] LABS: Bedside Glucose 271 mg/dL (70-110)
[2020-12-23] MEDS: Insulin Lispro 100 UNIT/ML INSULN.PEN 6 UNIT SC (17:20)
[2020-12-23 21:00] VITALS: PULSE 74; RESP 16; O2SAT 95
[2020-12-23] MEDS: Pravastatin 40 MG Tablet PO (21:03)
[2020-12-23] MEDS: Levothyroxine 75 MCG Tablet PO (21:03)
[2020-12-23 22:41] LABS: Bedside Glucose 228 mg/dL (70-110)
[2020-12-24] MEDS: traZODone 100 MG Tablet PO ×2 (00:03→23:20)
[2020-12-24 05:00] VITALS: BP 110/42; PULSE 72; RESP 16; TEMP 36.1; O2SAT 96
[2020-12-24 06:15] VITALS: BP 118/32
[2020-12-24] MEDS: Clopidogrel Bisulfate 75 MG Tablet PO (06:47)
[2020-12-24] MEDS: Pantoprazole Sodium 20 MG Tablet PO ×2 (06:47→17:42)
[2020-12-24] MEDS: guaiFENesin 600 MG Tablet PO ×2 (06:47→17:42)
[2020-12-24] MEDS: Loratadine 10 MG Tablet PO (06:47)
[2020-12-24] MEDS: Menthol/Lanolin/Calamine/Znox 113 GM Tube 1 APPLIC TOPICAL ×2 (06:49→17:47)
[2020-12-24 06:50] LABS: Bedside Glucose 87 mg/dL (70-110)
[2020-12-24 09:11] LABS: Anion Gap 8 (5-15); BUN 63 mg/dL (7-18); BUN/Creat Ratio 48.5 RATIO (10-20); Calcium,Total 8.5 mg/dL (8.5-10.1); Chloride 109 mmol/L (98-107); EST Glomerular Filtration Rate 43 mL/min (>60); Est Glom Filt Rate - Afr Amer 52 mL/min (>60); Estimated Creatinine Clearance 33.28 ml/min; Glucose 82 mg/dL (74-106); Potassium 4.4 mmol/L (3.5-5.1); Sodium Level 139 mmol/L (136-145)
[2020-12-24] MEDS: Multivitamins,Ther W-Minerals Tablet 1 TABLET PO (09:37)
[2020-12-24] MEDS: Allopurinol 100 MG Tablet PO (09:37)
[2020-12-24] MEDS: amLODIPine 5 MG Tablet PO ×2 (09:38→17:42)
[2020-12-24] MEDS: Isosorbide Mononitrate 60 MG Tablet PO (09:38)
[2020-12-24] MEDS: Aspirin E.C. 81 MG Tablet PO (09:38)
[2020-12-24] MEDS: Creon 24,000 unit DR Capsule 1 CAP PO ×2 (09:38→17:43)
[2020-12-24] MEDS: Lisinopril 20 MG Tablet PO ×2 (09:38→17:42)
[2020-12-24] MEDS: Carvedilol 25 MG Tablet PO ×2 (09:38→17:43)
[2020-12-24 09:44] VITALS: BP 144/54; PULSE 78
[2020-12-24 11:10] LABS: Bedside Glucose 295 mg/dL (70-110)
[2020-12-24] MEDS: oxyCODONE 5 MG Tablet PO (14:47)
[2020-12-24 16:00] VITALS: BP 138/67; PULSE 73; RESP 15; TEMP 36.3; O2SAT 98
[2020-12-24 16:51] LABS: Bedside Glucose 166 mg/dL (70-110)
[2020-12-24] MEDS: Insulin Lispro 100 UNIT/ML INSULN.PEN 6 UNIT SC (17:41)
[2020-12-24 21:29] VITALS: PULSE 65; RESP 16; O2SAT 96
[2020-12-24] MEDS: Levothyroxine 75 MCG Tablet PO (21:33)
[2020-12-24] MEDS: Pravastatin 40 MG Tablet PO (21:33)
[2020-12-24 21:46] LABS: Bedside Glucose 112 mg/dL (70-110)
[2020-12-24] MEDS: tiZANidine HCl 2 MG Tablet 4 MG PO (22:01)
[2020-12-25 05:00] VITALS: PULSE 74; RESP 18; TEMP 36.8; O2SAT 93
[2020-12-25] MEDS: Loratadine 10 MG Tablet PO (06:21)
[2020-12-25] MEDS: Menthol/Lanolin/Calamine/Znox 113 GM Tube 1 APPLIC TOPICAL ×2 (06:21→18:04)
[2020-12-25] MEDS: guaiFENesin 600 MG Tablet PO ×2 (06:23→17:53)
[2020-12-25] MEDS: Clopidogrel Bisulfate 75 MG Tablet PO (06:23)
[2020-12-25] MEDS: Pantoprazole Sodium 20 MG Tablet PO ×2 (06:23→17:53)
[2020-12-25] MEDS: Acetaminophen 500 MG Tablet 1000 MG PO (06:30)
[2020-12-25 07:00] LABS: Bedside Glucose 169 mg/dL (70-110)
[2020-12-25 07:00] LABS: Bedside Glucose 57 mg/dL (70-110)
[2020-12-25] MEDS: Lisinopril 20 MG Tablet PO ×2 (07:02→17:54)
[2020-12-25] MEDS: amLODIPine 5 MG Tablet PO ×2 (07:02→17:53)
[2020-12-25] MEDS: Isosorbide Mononitrate 60 MG Tablet PO (07:02)
[2020-12-25] MEDS: Insulin Lispro 100 UNIT/ML INSULN.PEN 6 UNIT SC (09:21)
[2020-12-25] MEDS: Allopurinol 100 MG Tablet PO (09:22)
[2020-12-25] MEDS: Aspirin E.C. 81 MG Tablet PO (09:22)
[2020-12-25] MEDS: Carvedilol 25 MG Tablet PO ×2 (09:22→17:53)
[2020-12-25] MEDS: Creon 24,000 unit DR Capsule 1 CAP PO ×2 (09:22→17:53)
[2020-12-25] MEDS: Multivitamins,Ther W-Minerals Tablet 1 TABLET PO (09:22)
[2020-12-25] MEDS: oxyCODONE 5 MG Tablet PO ×2 (09:26→21:09)
[2020-12-25 11:36] LABS: Bedside Glucose 177 mg/dL (70-110)
--- NOTE | 2020-12-25 12:10 | NURSING ---
dr winchester updated on pt low AM blood sugars, new order to DC humalog and decrease lantus 15units BID
[2020-12-25] MEDS: 0.9% Saline Lock 10 ML Syringe IV ×2 (12:51→21:08)
[2020-12-25 16:00] VITALS: BP 142/56; PULSE 72; RESP 18; TEMP 36.8; O2SAT 94
[2020-12-25 16:26] LABS: Bedside Glucose 124 mg/dL (70-110)
--- NOTE | 2020-12-25 18:19 | NURSING ---
Pt's blood sugar was 124 before supper. Expressing concerns about low blood sugars throughout the night. Not hungry at this time, family visiting. Pt refusing Lantus with supper.
[2020-12-25 20:00] VITALS: PULSE 79; RESP 14; O2SAT 96
[2020-12-25 21:15] VITALS: BP 139/42; PULSE 79; RESP 16; O2SAT 96
[2020-12-25] MEDS: Pravastatin 40 MG Tablet PO (21:17)
[2020-12-25] MEDS: Levothyroxine 75 MCG Tablet PO (21:17)
[2020-12-25 22:20] LABS: Bedside Glucose 191 mg/dL (70-110)
[2020-12-25] MEDS: Metoclopramide 10 MG Tablet PO (22:32)
[2020-12-26] MEDS: traZODone 100 MG Tablet PO (00:17)
[2020-12-26 06:27] VITALS: BP 112/50; PULSE 88; RESP 18; TEMP 37.3; O2SAT 98
[2020-12-26] MEDS: Menthol/Lanolin/Calamine/Znox 113 GM Tube 1 APPLIC TOPICAL (06:29)
[2020-12-26] MEDS: Loratadine 10 MG Tablet PO (06:30)
[2020-12-26] MEDS: amLODIPine 5 MG Tablet PO (06:31)
[2020-12-26] MEDS: Clopidogrel Bisulfate 75 MG Tablet PO (06:31)
[2020-12-26] MEDS: Pantoprazole Sodium 20 MG Tablet PO (06:31)
[2020-12-26] MEDS: Lisinopril 20 MG Tablet PO (06:31)
[2020-12-26] MEDS: guaiFENesin 600 MG Tablet PO (06:31)
[2020-12-26] MEDS: oxyCODONE 5 MG Tablet PO ×2 (06:35→13:38)
[2020-12-26 06:46] LABS: Bedside Glucose 104 mg/dL (70-110)
[2020-12-26] MEDS: Isosorbide Mononitrate 60 MG Tablet PO (06:47)
[2020-12-26] MEDS: Creon 24,000 unit DR Capsule 1 CAP PO (08:42)
[2020-12-26] MEDS: Carvedilol 25 MG Tablet PO (08:42)
[2020-12-26] MEDS: Aspirin E.C. 81 MG Tablet PO (08:42)
[2020-12-26] MEDS: Allopurinol 100 MG Tablet PO (08:42)
[2020-12-26] MEDS: Multivitamins,Ther W-Minerals Tablet 1 TABLET PO (08:42)
[2020-12-26] MEDS: Acetaminophen 500 MG Tablet 1000 MG PO ×2 (08:46→18:12)
[2020-12-26] MEDS: 0.9% Saline Lock 10 ML Syringe IV ×2 (08:46→15:08)
[2020-12-26 11:10] LABS: Bedside Glucose 300 mg/dL (70-110)
[2020-12-26 14:09] VITALS: BP 150/61; PULSE 92; RESP 17; TEMP 37.1; O2SAT 97
--- NOTE | 2020-12-26 15:21 | NURSING ---
wound photo: left foot
--- NOTE | 2020-12-26 15:21 | NURSING ---
wound photo: left foot
[2020-12-26 16:26] LABS: Bedside Glucose 174 mg/dL (70-110)
[2020-12-26 17:00] VITALS: BP 162/61; PULSE 96; RESP 18; TEMP 37.8; O2SAT 92
--- NOTE | 2020-12-26 17:13 | RAD_ITS ---
HISTORY: Fever EXAMINATION/TECHNIQUE: XR Chest 2 Views: 2 views COMPARISON: 09/19/20 FINDINGS: LINES/DEVICES: None. LUNGS: No pulmonary consolidation, mass, or edema. No pleural effusion or pneumothorax. MEDIASTINUM AND CARDIOVASCULAR STRUCTURES: Cardiac silhouette not enlarged. Stable CABG changes. Central airways and mediastinal contour are unremarkable. BONES AND SOFT TISSUES: No acute bony abnormalities. Anterior cervical fusion hardware unchanged. RAD/Chest PA and Lateral IMPRESSION: No radiographic evidence of acute cardiopulmonary disease. at 1832 Reported and signed by: Elvis Castanon MD Electronically Signed: Elvis Castanon MD at 18:31 EDT Tel , Service support ,
--- NOTE | 2020-12-26 17:50 | RAD_ITS ---
HISTORY: Fever EXAMINATION/TECHNIQUE: XR Abdomen 1 View: COMPARISON: None FINDINGS: LINES AND TUBES: None. BOWEL GAS PATTERN: Non-obstructive. Extensive colonic fecal retention with formed stool in the rectum. FREE AIR: Not assessed on a single supine view. ORGANOMEGALY: Not seen. CALCIFICATIONS: No abnormal calcifications observed. LOWER CHEST: No acute pathology. BONES AND SOFT TISSUES: No acute pathology. RAD/Abdomen Single View IMPRESSION: Non-obstructive bowel gas pattern. Colonic fecal retention suggest clinical constipation. at 1842 Reported and signed by: Elvis Castanon MD Electronically Signed: Elvis Castanon MD at 18:41 EDT Tel , Service support ,
[2020-12-26] MEDS: Metoclopramide 10 MG Tablet PO (18:12)
--- NOTE | 2020-12-26 18:17 | NURSING ---
This nurse entered pt's room, pt was covered with blankets and stating she was very cold. Vitals obtained, oral temp 100.1F, Dr. Rush updated. N.O. received. Pt and aware.
[2020-12-26 19:14] LABS: Absolute Lymphocyte Count 0.88 X10^3/uL (0.83-4.51); Absolute Neutrophil Count 7.8 X10^3/uL (2.0-7.7); Basophil# 0.04 X10^3/uL; Basophil% 0.4 % (0-1); Hematocrit 33.1 % (37-47); Hemoglobin 10.3 g/dL (12.0-15.0); Lymphocyte # 0.88 X10^3/ul (0.83-4.51); Lymphocyte % 8.9 % (19-41); Mean Corp Hgb Conc 31.1 g/dL (32-36); Mean Corpuscular Hgb 26.7 pg (27.0-32.0); Mean Corpuscular Volume 85.8 fL (81-99); Mean Platelet Vol. 9.7 fl (6.2-12.0); Monocyte# 0.96 X10^3/uL; Monocyte% 9.7 % (0-10); NRBC Flagged by Analyzer 0 % (0-5); Neutrophil # 7.76 X10^3/uL (2.7-7.7); Neutrophil % 78.6 % (47-70); Platelet Count 231 K/mm3 (150-450); RBC Distribution Width CV 14.7 % (11.6-14.6); RBC Distribution Width SD 46.5 fl (35.1-43.9); Red Blood Count 3.86 M/mm3 (4.2-5.4); White Blood Count 9.9 K/mm3 (4.4-11.0)
[2020-12-26 19:31] LABS: Anion Gap 7 (5-15); BUN 57 mg/dL (7-18); BUN/Creat Ratio 40.7 RATIO (10-20); Calcium,Total 8.3 mg/dL (8.5-10.1); Chloride 105 mmol/L (98-107); EST Glomerular Filtration Rate 39 mL/min (>60); Est Glom Filt Rate - Afr Amer 47 mL/min (>60); Glucose 197 mg/dL (74-106); Potassium 4.6 mmol/L (3.5-5.1); Sodium Level 131 mmol/L (136-145)
[2020-12-26 21:31] LABS: Bedside Glucose 191 mg/dL (70-110)
[2020-12-26] MEDS: Pravastatin 40 MG Tablet PO (21:38)
[2020-12-26] MEDS: Levothyroxine 75 MCG Tablet PO (21:38)
[2020-12-26 23:01] LABS: Probe Check PASS; Specimen Processing Control PASS
[2020-12-26 23:21] LABS: Bacteria 0 SEEN /hpf (None Seen); Mucous, Urine 0 SEEN /hpf (<or=2+); Squamous Epithelial Cells - UA 0 SEEN /hpf (5-10); White Blood Cells 0 SEEN /hpf (0-5)
[2020-12-26 23:33] LABS: Color, Urine Yellow (Yellow); Glucose, Dipstick Normal (Normal); Ketone-Dipstick Negative (Negative); Leukocyte Esterase-Dipstick Negative /ul (Negative); Nitrite-Dipstick Negative (Negative); Occult Blood-Urine 10 /ul (Negative); Protein-Dipstick 30 mg/dl (Negative); Urine Bilirubin Dipstick Negative (Negative); Urine Clarity Clear (Clear); Urine Urobilinogen Normal (Normal)
[2020-12-26 23:39] LABS: Red Blood Cells-Urine 0-5 SEEN /hpf (0-5)
[2020-12-27] MEDS: oxyCODONE 5 MG Tablet PO ×2 (02:09→15:24)
[2020-12-27 06:30] LABS: Bedside Glucose 153 mg/dL (70-110)
[2020-12-27] MEDS: Isosorbide Mononitrate 60 MG Tablet PO (06:47)
[2020-12-27] MEDS: Pantoprazole Sodium 20 MG Tablet PO ×2 (06:48→18:11)
[2020-12-27] MEDS: Clopidogrel Bisulfate 75 MG Tablet PO (06:48)
[2020-12-27] MEDS: Loratadine 10 MG Tablet PO (06:48)
[2020-12-27] MEDS: Menthol/Lanolin/Calamine/Znox 113 GM Tube 1 APPLIC TOPICAL ×2 (06:48→18:15)
[2020-12-27] MEDS: Lisinopril 20 MG Tablet PO ×2 (06:48→18:13)
[2020-12-27] MEDS: guaiFENesin 600 MG Tablet PO ×2 (06:48→18:12)
[2020-12-27] MEDS: amLODIPine 5 MG Tablet PO ×2 (06:48→18:15)
[2020-12-27] MEDS: morphine (oral solution) 10MG/0.5ML Syringe 6 MG PO (06:53)
[2020-12-27] MEDS: Acetaminophen 500 MG Tablet 1000 MG PO (07:08)
[2020-12-27 07:36] VITALS: BP 139/71; PULSE 97; RESP 14; TEMP 36.9; O2SAT 98
--- NOTE | 2020-12-27 08:23 | MDS.RN ---
Information for the mds was obtained from review of the clinical record, interview of resident, staff, and direct observation of resident's care.
[2020-12-27] MEDS: Allopurinol 100 MG Tablet PO (09:20)
[2020-12-27] MEDS: Aspirin E.C. 81 MG Tablet PO (09:20)
[2020-12-27] MEDS: Multivitamins,Ther W-Minerals Tablet 1 TABLET PO (09:20)
[2020-12-27] MEDS: Carvedilol 25 MG Tablet PO ×2 (09:21→18:11)
[2020-12-27] MEDS: Creon 24,000 unit DR Capsule 1 CAP PO ×2 (09:21→18:12)
[2020-12-27] MEDS: Metoclopramide 10 MG Tablet PO ×2 (09:31→18:27)
[2020-12-27 11:00] LABS: Bedside Glucose 333 mg/dL (70-110)
[2020-12-27 14:29] VITALS: BP 123/56; PULSE 80; RESP 15; TEMP 36.6; O2SAT 96
[2020-12-27 16:16] LABS: Bedside Glucose 221 mg/dL (70-110)
[2020-12-27] MEDS: Levothyroxine 75 MCG Tablet PO (21:28)
[2020-12-27] MEDS: Pravastatin 40 MG Tablet PO (21:28)
[2020-12-27] MEDS: tiZANidine HCl 2 MG Tablet 4 MG PO (21:30)
[2020-12-27 21:36] LABS: Bedside Glucose 377 mg/dL (70-110)
[2020-12-27] MEDS: traZODone 100 MG Tablet PO (22:52)
[2020-12-27 23:37] VITALS: PULSE 92; RESP 14
[2020-12-28 04:31] VITALS: BP 157/62; PULSE 79; RESP 14; TEMP 36.6; O2SAT 93
[2020-12-28] MEDS: Pantoprazole Sodium 20 MG Tablet PO ×2 (04:36→17:21)
[2020-12-28] MEDS: morphine (oral solution) 10MG/0.5ML Syringe 6 MG PO (04:36)
[2020-12-28] MEDS: amLODIPine 5 MG Tablet PO ×2 (04:36→17:21)
[2020-12-28] MEDS: Clopidogrel Bisulfate 75 MG Tablet PO (04:36)
[2020-12-28] MEDS: Lisinopril 20 MG Tablet PO ×2 (04:36→17:21)
[2020-12-28] MEDS: Loratadine 10 MG Tablet PO (04:37)
[2020-12-28] MEDS: guaiFENesin 600 MG Tablet PO ×2 (04:37→17:21)
[2020-12-28] MEDS: Isosorbide Mononitrate 60 MG Tablet PO (04:38)
[2020-12-28] MEDS: Menthol/Lanolin/Calamine/Znox 113 GM Tube 1 APPLIC TOPICAL ×2 (04:40→17:25)
[2020-12-28] MEDS: 0.9% Saline Lock 10 ML Syringe IV ×2 (04:40→21:01)
[2020-12-28 06:36] LABS: Bedside Glucose 132 mg/dL (70-110)
[2020-12-28] MEDS: Multivitamins,Ther W-Minerals Tablet 1 TABLET PO (08:47)
[2020-12-28] MEDS: Aspirin E.C. 81 MG Tablet PO (08:47)
[2020-12-28] MEDS: Carvedilol 25 MG Tablet PO ×2 (08:47→17:21)
[2020-12-28] MEDS: Creon 24,000 unit DR Capsule 1 CAP PO ×2 (08:47→17:21)
[2020-12-28] MEDS: Allopurinol 100 MG Tablet PO (08:47)
[2020-12-28] MEDS: Acetaminophen 500 MG Tablet 1000 MG PO (08:54)
[2020-12-28 10:50] LABS: Bedside Glucose 246 mg/dL (70-110)
[2020-12-28 16:00] VITALS: BP 146/65; PULSE 78; RESP 15; TEMP 36.7; O2SAT 95
[2020-12-28] MEDS: oxyCODONE 5 MG Tablet PO (16:12)
[2020-12-28 16:50] LABS: Bedside Glucose 187 mg/dL (70-110)
[2020-12-28 20:45] VITALS: BP 133/60; PULSE 72; RESP 16
[2020-12-28] MEDS: traZODone 100 MG Tablet PO (20:58)
[2020-12-28] MEDS: Pravastatin 40 MG Tablet PO (20:59)
[2020-12-28] MEDS: Levothyroxine 75 MCG Tablet PO (20:59)
[2020-12-28] MEDS: Hydrocortisone 2.5% Crm 1 APPLIC TOPICAL (21:02)
[2020-12-28 21:55] LABS: Bedside Glucose 329 mg/dL (70-110)
[2020-12-29 05:32] LABS: Absolute Lymphocyte Count 2.08 X10^3/uL (0.83-4.51); Absolute Neutrophil Count 2.3 X10^3/uL (2.0-7.7); Basophil# 0.02 X10^3/uL; Basophil% 0.4 % (0-1); Eosinophil# 0.46 X10^3/uL; Eosinophils% 8.2 % (0-5); Hematocrit 30.7 % (37-47); Hemoglobin 9.4 g/dL (12.0-15.0); Lymphocyte # 2.08 X10^3/ul (0.83-4.51); Lymphocyte % 37.2 % (19-41); Mean Corp Hgb Conc 30.6 g/dL (32-36); Mean Corpuscular Hgb 25.9 pg (27.0-32.0); Mean Corpuscular Volume 84.6 fL (81-99); Mean Platelet Vol. 9.4 fl (6.2-12.0); Monocyte# 0.76 X10^3/uL; Monocyte% 13.6 % (0-10); NRBC Flagged by Analyzer 0 % (0-5); Neutrophil # 2.26 X10^3/uL (2.7-7.7); Neutrophil % 40.4 % (47-70); Platelet Count 209 K/mm3 (150-450); RBC Distribution Width CV 14.8 % (11.6-14.6); RBC Distribution Width SD 45.8 fl (35.1-43.9); Red Blood Count 3.63 M/mm3 (4.2-5.4); White Blood Count 5.6 K/mm3 (4.4-11.0)
[2020-12-29 05:45] LABS: Anion Gap 7 (5-15); BUN 44 mg/dL (7-18); BUN/Creat Ratio 32.8 RATIO (10-20); Calcium,Total 8.6 mg/dL (8.5-10.1); Chloride 109 mmol/L (98-107); Creatinine, Serum 1.34 mg/dL (0.55-1.02); EST Glomerular Filtration Rate 41 mL/min (>60); Est Glom Filt Rate - Afr Amer 50 mL/min (>60); Estimated Creatinine Clearance 32.29 ml/min; Glucose 101 mg/dL (74-106); Potassium 4.8 mmol/L (3.5-5.1); Sodium Level 137 mmol/L (136-145)
[2020-12-29 06:22] VITALS: BP 121/48; PULSE 73; RESP 14; TEMP 36.3; O2SAT 94
[2020-12-29] MEDS: Acetaminophen 500 MG Tablet 1000 MG PO ×3 (06:23→21:41)
[2020-12-29] MEDS: guaiFENesin 600 MG Tablet PO ×2 (06:25→17:45)
[2020-12-29] MEDS: Pantoprazole Sodium 20 MG Tablet PO ×2 (06:25→17:47)
[2020-12-29] MEDS: Loratadine 10 MG Tablet PO (06:25)
[2020-12-29] MEDS: amLODIPine 5 MG Tablet PO ×2 (06:25→17:45)
[2020-12-29] MEDS: Lisinopril 20 MG Tablet PO ×2 (06:25→17:48)
[2020-12-29 06:26] LABS: Bedside Glucose 95 mg/dL (70-110)
[2020-12-29] MEDS: Clopidogrel Bisulfate 75 MG Tablet PO (06:26)
[2020-12-29] MEDS: Isosorbide Mononitrate 60 MG Tablet PO (06:27)
[2020-12-29] MEDS: Menthol/Lanolin/Calamine/Znox 113 GM Tube 1 APPLIC TOPICAL ×2 (06:30→17:50)
--- NOTE | 2020-12-29 06:33 | NURSING ---
Fingerstick glucose result 95, juice provided per pt. request. Pt. declines Lantus as ordered at this time. States I'm not taking it until about 9 this morning. Denies further requests. Call light in reach. No distress observed or reported. A&Ox3.
[2020-12-29] MEDS: Multivitamins,Ther W-Minerals Tablet 1 TABLET PO (08:53)
[2020-12-29] MEDS: Allopurinol 100 MG Tablet PO (08:53)
[2020-12-29] MEDS: Carvedilol 25 MG Tablet PO ×2 (08:53→17:46)
[2020-12-29] MEDS: Aspirin E.C. 81 MG Tablet PO (08:53)
[2020-12-29] MEDS: Creon 24,000 unit DR Capsule 1 CAP PO ×2 (08:53→17:45)
[2020-12-29 10:50] LABS: Bedside Glucose 310 mg/dL (70-110)
[2020-12-29] MEDS: oxyCODONE 5 MG Tablet PO (13:00)
[2020-12-29 13:54] VITALS: BP 137/52; PULSE 65; RESP 18; TEMP 36.2; O2SAT 98
--- NOTE | 2020-12-29 14:54 | CASEMGMT ---
Social Work SW met with pt to discuss discharge plan. Pt IV ATB have been stopped. Pt is recieving wound care to Left lower extermity. Pt is receiving PT/OT and progressing well. Pt stating concerns that Dr. Magana is not ready for her to discharge. SW spoke with nursing and requested phone call to Dr. Magana who in turn reports pt is doing well and can be discharged from her perspective. Pt informed and states she would like to speak with her spouse and will let SW know about agreeable discharge date. SW discussed home health with pt and offered a list of home health providers. Pt declines list stating she has used [facility] in the past and would like to resume care with them. Pt has needed DME. SW will followup with pt once she has spoke with her spouse. MARTIN Oropeza
[2020-12-29 19:11] LABS: Bedside Glucose 217 mg/dL (70-110)
[2020-12-29] MEDS: tiZANidine HCl 2 MG Tablet 4 MG PO (21:42)
[2020-12-29] MEDS: 0.9% Saline Lock 10 ML Syringe IV (21:43)
[2020-12-29] MEDS: Pravastatin 40 MG Tablet PO (21:44)
[2020-12-29] MEDS: Levothyroxine 75 MCG Tablet PO (21:44)
[2020-12-29 22:01] LABS: Bedside Glucose 257 mg/dL (70-110)
[2020-12-29] MEDS: traZODone 100 MG Tablet PO (23:14)
[2020-12-30] MEDS: oxyCODONE 5 MG Tablet PO ×2 (02:04→15:37)
[2020-12-30 06:12] VITALS: BP 138/46; PULSE 61; RESP 14; TEMP 36.2; O2SAT 97
[2020-12-30] MEDS: Lisinopril 20 MG Tablet PO ×2 (06:20→17:18)
[2020-12-30] MEDS: guaiFENesin 600 MG Tablet PO ×2 (06:20→17:17)
[2020-12-30] MEDS: amLODIPine 5 MG Tablet PO ×2 (06:20→17:18)
[2020-12-30] MEDS: Pantoprazole Sodium 20 MG Tablet PO ×2 (06:20→17:17)
[2020-12-30] MEDS: Clopidogrel Bisulfate 75 MG Tablet PO (06:20)
[2020-12-30] MEDS: Loratadine 10 MG Tablet PO (06:20)
[2020-12-30] MEDS: Isosorbide Mononitrate 60 MG Tablet PO (06:20)
[2020-12-30] MEDS: Menthol/Lanolin/Calamine/Znox 113 GM Tube 1 APPLIC TOPICAL ×2 (06:21→17:20)
[2020-12-30] MEDS: Acetaminophen 500 MG Tablet 1000 MG PO (06:22)
[2020-12-30] MEDS: Creon 24,000 unit DR Capsule 1 CAP PO ×2 (09:11→17:15)
[2020-12-30] MEDS: Carvedilol 25 MG Tablet PO ×2 (09:11→17:15)
[2020-12-30] MEDS: Aspirin E.C. 81 MG Tablet PO (09:12)
[2020-12-30] MEDS: Allopurinol 100 MG Tablet PO (09:13)
[2020-12-30] MEDS: Multivitamins,Ther W-Minerals Tablet 1 TABLET PO (09:13)
[2020-12-30] MEDS: Metoclopramide 10 MG Tablet PO (09:21)
[2020-12-30 11:10] LABS: Bedside Glucose 100 mg/dL (70-110)
--- NOTE | 2020-12-30 14:16 | CASEMGMT ---
Social Work SW met with pt and [place] and pt spouse on speaker phone. Pt to call at this time to have ramp installed early next week. Pt would like Dr. Magana to see her foot prior to d/c. Nursing made aware. SW provided information on Meals on Wheels, [employer] and [facility] free meal program. Pt appreciative of information and states she will call for resources. Pt does not think she will need home health services at time of discharge as she is doing well with therapy and will follow up in Dr. Quintero office for wound care. SW to continue to follow for d/c planning. MARTIN Oropeza
[2020-12-30 14:22] VITALS: BP 126/57; PULSE 71; RESP 18; TEMP 36.2; O2SAT 99
--- NOTE | 2020-12-30 15:51 | PN_ITS ---
Subjective Subjective Patient was seen today for follow up on left foot. She relates she has been impressed with how pain has been doing - she relates to occasional episodes of pain but overall doing well. No fever, chills, nausea or vomiting. Objective Data Objective Data Vital Signs: Vital Signs Temp Pulse Resp BP Pulse Ox 97.1 F L 71 18 126/57 H 99 12/30/20 14:22 12/30/20 14:22 12/30/20 14:22 12/30/20 14:22 12/30/20 14:22 Oxygen Delivery Method Room Air Weight: 78.953 kg Body Mass Index (BMI) 30.9 Intake & Output: Intake and Output for Last 24 Hours 12/28/20 12/29/20 12/30/20 23:59 23:59 23:59 Intake Total 840 / 840 1440 / 1440 480 / 480 Balance 840 / 840 1440 / 1440 480 / 480 Medical Nutrition Assessment Dietitian: Nutrition Therapy Diagnosis Start: 12/15/20 10:55 Freq: Status: Active Protocol: Document 12/28/20 16:56 [facility] (Rec: 12/28/20 16:56 [facility] [id number]) Nutrition Malnutrition Evidence of Malnutrition Exists No Intake Problem Increased Nutrient Needs (specify) Etiology Increased protein needs related to wound healing Signs/Symptoms as evidenced by left foot amputation surgical incision and need for Blue bid Status Active Problem Inadequate Oral Intake Etiology related to decreased appetite and lack of motivation to consume sufficient energy due to nausea Signs/Symptoms as evidenced by pt with fair intake consuming ~50% of meals during inpatient stay, 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 Status Resolved Problem Recommendation Dietitian Recommendations/Changes Will continue to provide Cardiac:CHO controlled diet. Continue Blue 1 pkt BID for wound healing. to continue bringing premier protein for res while on TCU. Will provide additional nutrition education as warranted by pt prior to discharge. Lab / Micro Data Result Diagrams: 12/29/20 05:22 12/29/20 05:22 Labs: Laboratory Results - last 24 hr 12/29/20 16:34: POC Glucose 217 H 12/29/20 21:55: POC Glucose 257 H 12/30/20 11:05: POC Glucose 100 Micro: Microbiology 12/26/20 19:05 Blood Culture (Wb) - Left Hand Blood Culture - Preliminary No growth in 48 hours. 12/26/20 18:50 Blood Culture (Wb) - Left Wrist Blood Culture - Preliminary No growth in 48 hours. 12/26/20 21:31 Mucosa - Nasopharyngeal Respiratory Panel (PCR) - Final Physical Exam Narrative Left foot: Status post Chopart amputation with sutures intact without gapping or necrosis. Area of previous mild dusky formation at the amputation margins at the incision intersection of the lateral side much improved and resolving, the foot is healing. There is no erythema, no cellulitis, no fluctuance or bogginess to the left foot. No odor or streaking or purulence to the left foot. Negative Claudio and Elizondo sign left. Compartments remain soft to palpate left lower extremity. Capillary fill time is brisk to all margins of the amputation occluding a complex flap closure. DP/PT 2/4 Assessment & Plan Assessment/Plan (1) Abscess of left foot: (2) Type 2 diabetes mellitus with diabetic polyneuropathy: (3) Charcot's joint of left foot: (4) Osteomyelitis of left foot: PLAN: Re-evaluation performed. Clinically her amputation site appears stable and it is healing well without local signs of infection. Site of duskyness is resolving well and much improved. Her vital signs are stable and she is afebrile. It is noted that at the amputation level and surgery there was no evidence of infection or necrosis. Infectious Disease on consult and appreciated. It is noted that antibiotics have been stopped. Blood cultures negative. Pathology for amputated portion of foot removed bone was positive for chronic osteomyelitis. Should be noted that this was bone that was removed completely. Remaining bone was not sent to pathology for fear of seeding any potential infection. Remaining bone showed no signs of infection during surgery Wound care: Betadine wet-to-dry dressing was reapplied with Adaptic, gauze, abdominal pads, Kerlix, and Arjun wrap to be changed every other day. Keep dressing clean, dry and intact otherwise. No weightbearing left foot, keep left foot elevated. To use assistive device and work with PT and OT. It is noted she also had recent vascular surgery intervention in the outpatient setting and has optimized perfusion status. All questions answered. Podiatry will continue to follow. Please do not hesitate to call if you have any questions. Patient to follow up with Dr[facility] after discharge - she will likely be discharged home next week.
[2020-12-30 17:05] LABS: Bedside Glucose 148 mg/dL (70-110)
[2020-12-30] MEDS: tiZANidine HCl 2 MG Tablet 4 MG PO (21:49)
[2020-12-30] MEDS: Levothyroxine 75 MCG Tablet PO (21:54)
[2020-12-30] MEDS: Pravastatin 40 MG Tablet PO (21:54)
[2020-12-30 21:55] VITALS: BP 134/59; PULSE 83
[2020-12-30 21:56] LABS: Bedside Glucose 197 mg/dL (70-110)
[2020-12-30] MEDS: traZODone 100 MG Tablet PO (23:57)
[2020-12-31] MEDS: Acetaminophen 500 MG Tablet 1000 MG PO ×2 (01:52→23:19)
[2020-12-31] MEDS: oxyCODONE 5 MG Tablet PO ×3 (01:52→23:19)
[2020-12-31 05:00] VITALS: BP 124/52; PULSE 75; RESP 16; TEMP 36.9; O2SAT 98
[2020-12-31] MEDS: guaiFENesin 600 MG Tablet PO ×2 (05:59→18:02)
[2020-12-31] MEDS: Clopidogrel Bisulfate 75 MG Tablet PO (05:59)
[2020-12-31] MEDS: Menthol/Lanolin/Calamine/Znox 113 GM Tube 1 APPLIC TOPICAL ×2 (05:59→18:12)
[2020-12-31] MEDS: Isosorbide Mononitrate 60 MG Tablet PO (05:59)
[2020-12-31] MEDS: Loratadine 10 MG Tablet PO (05:59)
[2020-12-31] MEDS: Lisinopril 20 MG Tablet PO ×2 (05:59→18:02)
[2020-12-31] MEDS: amLODIPine 5 MG Tablet PO ×2 (05:59→18:02)
[2020-12-31] MEDS: Pantoprazole Sodium 20 MG Tablet PO ×2 (05:59→18:02)
--- NOTE | 2020-12-31 06:09 | NURSING ---
Patient refusing sugar check at this time, no symptoms of low blood sugar, she's having juice w/ her meds this AM. She want so sleep and wants blood sugar check around 9-10am when she eats breakfast.
--- NOTE | 2020-12-31 08:43 | NURSING ---
Declines meds now, wants RN to come back later. States she just wants to sleep.
[2020-12-31 11:10] VITALS: PULSE 83; RESP 16; O2SAT 95
[2020-12-31 11:16] LABS: Bedside Glucose 195 mg/dL (70-110)
[2020-12-31] MEDS: Multivitamins,Ther W-Minerals Tablet 1 TABLET PO (11:33)
[2020-12-31] MEDS: Allopurinol 100 MG Tablet PO (11:33)
[2020-12-31] MEDS: Carvedilol 25 MG Tablet PO ×2 (11:34→18:10)
[2020-12-31] MEDS: Aspirin E.C. 81 MG Tablet PO (11:34)
[2020-12-31] MEDS: Insulin Lispro 100 UNIT/ML INSULN.PEN 7 UNIT SC ×2 (11:34→18:12)
[2020-12-31] MEDS: Creon 24,000 unit DR Capsule 1 CAP PO ×2 (11:34→18:10)
[2020-12-31] MEDS: morphine (oral solution) 10MG/0.5ML Syringe 6 MG PO ×2 (11:35→18:11)
[2020-12-31 14:52] VITALS: BP 135/56; PULSE 92; RESP 16; TEMP 36.7; O2SAT 98
[2020-12-31 16:11] LABS: Bedside Glucose 181 mg/dL (70-110)
[2020-12-31 22:35] LABS: Bedside Glucose 198 mg/dL (70-110)
[2020-12-31] MEDS: Levothyroxine 75 MCG Tablet PO (23:14)
[2020-12-31] MEDS: Pravastatin 40 MG Tablet PO (23:14)
[2020-12-31] MEDS: Metoclopramide 10 MG Tablet PO (23:28)
[2021-01-01 05:00] VITALS: BP 125/53; PULSE 79; RESP 16; TEMP 36.3; O2SAT 97
[2021-01-01] MEDS: Lisinopril 20 MG Tablet PO ×2 (06:35→16:47)
[2021-01-01] MEDS: Isosorbide Mononitrate 60 MG Tablet PO (06:35)
[2021-01-01] MEDS: guaiFENesin 600 MG Tablet PO ×2 (06:35→16:46)
[2021-01-01] MEDS: Clopidogrel Bisulfate 75 MG Tablet PO (06:35)
[2021-01-01] MEDS: Loratadine 10 MG Tablet PO (06:35)
[2021-01-01] MEDS: amLODIPine 5 MG Tablet PO ×2 (06:35→16:47)
[2021-01-01] MEDS: Pantoprazole Sodium 20 MG Tablet PO ×2 (06:35→16:47)
[2021-01-01 06:55] LABS: Bedside Glucose 76 mg/dL (70-110)
[2021-01-01] MEDS: Multivitamins,Ther W-Minerals Tablet 1 TABLET PO (08:25)
[2021-01-01] MEDS: Creon 24,000 unit DR Capsule 1 CAP PO ×2 (08:25→16:46)
[2021-01-01] MEDS: Carvedilol 25 MG Tablet PO ×2 (08:25→16:47)
[2021-01-01] MEDS: Aspirin E.C. 81 MG Tablet PO (08:25)
[2021-01-01] MEDS: Allopurinol 100 MG Tablet PO (08:25)
[2021-01-01] MEDS: Insulin Lispro 100 UNIT/ML INSULN.PEN 7 UNIT SC ×2 (09:14→12:23)
[2021-01-01 09:20] LABS: Bedside Glucose 243 mg/dL (70-110)
[2021-01-01 10:51] LABS: Bedside Glucose 228 mg/dL (70-110)
[2021-01-01 14:34] VITALS: BP 127/56; PULSE 55; RESP 17; TEMP 36.3; O2SAT 99
[2021-01-01] MEDS: oxyCODONE 5 MG Tablet PO ×2 (14:43→21:44)
[2021-01-01 16:01] LABS: Bedside Glucose 56 mg/dL (70-110)
--- NOTE | 2021-01-01 16:02 | NURSING ---
Blood sugar was 56 this afternoon when checked, pt given juice per request, rechecked and pt's blood sugar was 119
[2021-01-01 16:05] LABS: Bedside Glucose 119 mg/dL (70-110)
[2021-01-01 17:04] VITALS: PULSE 68
[2021-01-01] MEDS: Menthol/Lanolin/Calamine/Znox 113 GM Tube 1 APPLIC TOPICAL (17:47)
[2021-01-01 21:41] LABS: Bedside Glucose 171 mg/dL (70-110)
[2021-01-01] MEDS: Acetaminophen 500 MG Tablet 1000 MG PO (21:44)
[2021-01-01] MEDS: Pravastatin 40 MG Tablet PO (21:45)
[2021-01-01] MEDS: Levothyroxine 75 MCG Tablet PO (21:46)
[2021-01-01] MEDS: traZODone 100 MG Tablet PO (23:48)
[2021-01-02 01:56] LABS: Bedside Glucose 118 mg/dL (70-110)
[2021-01-02 05:00] VITALS: BP 136/54; PULSE 71; RESP 18; TEMP 36.1; O2SAT 97
[2021-01-02] MEDS: Menthol/Lanolin/Calamine/Znox 113 GM Tube 1 APPLIC TOPICAL ×2 (06:21→16:53)
[2021-01-02] MEDS: amLODIPine 5 MG Tablet PO ×2 (06:21→16:39)
[2021-01-02] MEDS: guaiFENesin 600 MG Tablet PO ×2 (06:21→16:40)
[2021-01-02] MEDS: Metoclopramide 10 MG Tablet PO ×2 (06:21→16:52)
[2021-01-02] MEDS: Isosorbide Mononitrate 60 MG Tablet PO (06:21)
[2021-01-02] MEDS: Loratadine 10 MG Tablet PO (06:21)
[2021-01-02] MEDS: Clopidogrel Bisulfate 75 MG Tablet PO (06:21)
[2021-01-02] MEDS: Pantoprazole Sodium 20 MG Tablet PO ×2 (06:21→16:40)
[2021-01-02] MEDS: Lisinopril 20 MG Tablet PO ×2 (06:21→16:39)
--- NOTE | 2021-01-02 06:30 | NURSING ---
Patient has dry cough, throat has been scratchy, worse this morning, she feels like she has a bad cold. Lungs sound mostly clear w/ diminished bases. Left message for MD to address.
[2021-01-02 06:36] LABS: Bedside Glucose 78 mg/dL (70-110)
--- NOTE | 2021-01-02 07:55 | RAD_ITS ---
STUDY: X-RAY CHEST REASON FOR EXAM: Female, 75 years old. Cough TECHNIQUE: PA and lateral views of the chest. COMPARISON: 12/26/2020 FINDINGS: There has been median sternotomy/CABG. There is hyperinflation of the lungs consistent with chronic obstructive lung disease (COPD). The lungs are clear. There is no demonstrated pleural abnormality. Normal size heart. Normal mediastinum and oniel. Normal visualized pulmonary arteries. Normal visualized aortic arch and descending thoracic aorta. There is anterior fusion of the lower cervical spine. There are diffuse degenerative changes of the visualized thoracic spine. Normal visualized ribs, clavicles, and shoulders. There is no demonstrated abnormality of the visualized soft tissue structures of the upper abdomen. RAD/Chest PA and Lateral IMPRESSION: COPD. The lungs are clear. Electronically Signed: Urszula Robledo MD at 14:18 EDT Tel , Service support ,
[2021-01-02] MEDS: guaiFENesin Dm 10 ML UDC PO ×2 (09:07→16:47)
[2021-01-02] MEDS: Creon 24,000 unit DR Capsule 1 CAP PO ×2 (09:10→16:40)
[2021-01-02] MEDS: Allopurinol 100 MG Tablet PO (09:10)
[2021-01-02] MEDS: Aspirin E.C. 81 MG Tablet PO (09:11)
[2021-01-02] MEDS: Carvedilol 25 MG Tablet PO ×2 (09:11→16:40)
[2021-01-02] MEDS: Multivitamins,Ther W-Minerals Tablet 1 TABLET PO (09:12)
[2021-01-02 11:00] LABS: Bedside Glucose 199 mg/dL (70-110)
[2021-01-02] MEDS: Insulin Lispro 100 UNIT/ML INSULN.PEN 7 UNIT SC (11:17)
[2021-01-02 13:42] VITALS: BP 127/58; PULSE 72; RESP 16; TEMP 36.2; O2SAT 98
[2021-01-02] MEDS: oxyCODONE 5 MG Tablet PO (14:22)
--- NOTE | 2021-01-02 14:40 | NURSING ---
wound photo: left foot
--- NOTE | 2021-01-02 14:41 | NURSING ---
wound photo: left foot
--- NOTE | 2021-01-02 14:56 | CASEMGMT ---
Social Work SW met with pt to discuss discharge plan. Pt states she spoke with Dr. aMgana and she will visit tomorrow morning. Ramps are also being installed in pt home tomorrow. Pt stating she plans to return home tomorrow afternoon. Pt is currently not feeling well and SW informed pt if she does not feel well enough to return home tomorrow she can continue to stay on TCU. Pt and dgt in law state they would like to see how pt feels in the morning to determine if she can return home tomorrow. SW will continue to follow. MARTIN Oropeza
[2021-01-02 16:00] LABS: Bedside Glucose 91 mg/dL (70-110)
[2021-01-02] MEDS: Levothyroxine 75 MCG Tablet PO (20:49)
[2021-01-02] MEDS: Pravastatin 40 MG Tablet PO (20:49)
[2021-01-02 21:00] VITALS: PULSE 85; RESP 14
[2021-01-02 21:01] LABS: Bedside Glucose 168 mg/dL (70-110)
[2021-01-02] MEDS: tiZANidine HCl 2 MG Tablet 4 MG PO (21:31)
[2021-01-03] MEDS: traZODone 100 MG Tablet PO ×2 (00:48→22:28)
[2021-01-03] MEDS: guaiFENesin Dm 10 ML UDC PO ×3 (00:48→21:32)
[2021-01-03] MEDS: Acetaminophen 500 MG Tablet 1000 MG PO ×2 (03:19→21:31)
[2021-01-03 05:01] LABS: Bedside Glucose 136 mg/dL (70-110)
[2021-01-03 06:39] VITALS: BP 134/50; PULSE 75; RESP 16; TEMP 35.8
--- NOTE | 2021-01-03 06:48 | PCM.PROGNOTE ---
Subjective Subjective Patient was seen today for follow up on left foot. She denies foot pain. She denies fever, chill, nausea, vomiting. She relates she had night sweats. Objective Data Objective Data Vital Signs: Vital Signs Temp Pulse Resp BP Pulse Ox 96.5 F L 75 16 134/50 H 98 01/03/21 06:39 01/03/21 06:39 01/03/21 06:39 01/03/21 06:39 01/02/21 13:42 Oxygen Delivery Method Room Air Weight: 78.953 kg Body Mass Index (BMI) 30.9 Intake & Output: Intake and Output for Last 24 Hours 01/01/21 01/02/21 01/03/21 23:59 23:59 23:59 Intake Total 820 / 820 640 / 640 Balance 820 / 820 640 / 640 Medical Nutrition Assessment Dietitian: Nutrition Therapy Diagnosis Start: 12/15/20 10:55 Freq: Status: Active Protocol: Document 12/28/20 16:56 SLA (Rec: 12/28/20 16:56 [facility] [id number]) Nutrition Malnutrition Evidence of Malnutrition Exists No Intake Problem Increased Nutrient Needs (specify) Etiology Increased protein needs related to wound healing Signs/Symptoms as evidenced by left foot amputation surgical incision and need for Blue bid Status Active Problem Inadequate Oral Intake Etiology related to decreased appetite and lack of motivation to consume sufficient energy due to nausea Signs/Symptoms as evidenced by pt with fair intake consuming ~50% of meals during inpatient stay, 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 Status Resolved Problem Recommendation Dietitian Recommendations/Changes Will continue to provide Cardiac:CHO controlled diet. Continue Blue 1 pkt BID for wound healing. to continue bringing premier protein for res while on TCU. Will provide additional nutrition education as warranted by pt prior to discharge. Lab / Micro Data Result Diagrams: 12/29/20 05:22 12/29/20 05:22 Labs: Laboratory Results - last 24 hr 01/02/21 10:54: POC Glucose 199 H 01/02/21 15:55: POC Glucose 91 01/02/21 20:42: POC Glucose 168 H 01/03/21 04:58: POC Glucose 136 H Micro: Microbiology 12/26/20 18:50 Blood Culture (Wb) - Left Wrist Blood Culture - Final No growth in 5 days. 12/26/20 19:05 Blood Culture (Wb) - Left Hand Blood Culture - Final No growth in 5 days. 12/26/20 21:31 Mucosa - Nasopharyngeal Respiratory Panel (PCR) - Final Radiography Diagnostic Testing: Radiology Impression Chest X-Ray 01/02/21 07:55 IMPRESSION: COPD. The lungs are clear. Electronically Signed: Urszula Robledo MD at 14:18 EDT Tel , Service support , Physical Exam Narrative Left foot: Status post Chopart amputation with sutures intact without gapping or necrosis. Area of previous mild dusky formation at the amputation margins has resolved and epithelialized tissue noted under upon skin peeling at this apex site. There is no erythema, no cellulitis, no fluctuance or bogginess to the left foot. No odor or streaking or purulence to the left foot. Negative Claudio and Elizondo sign left. Compartments remain soft to palpate left lower extremity. Capillary fill time is brisk to all margins of the amputation occluding a complex flap closure. DP/PT 2/4, left Assessment & Plan Assessment/Plan (1) Abscess of left foot: (2) Type 2 diabetes mellitus with diabetic polyneuropathy: (3) Charcot's joint of left foot: (4) Osteomyelitis of left foot: PLAN: Re-evaluation performed. Clinically her amputation site appears stable and it is healing well without local signs of infection. There are no local signs of infection or necrosis. There is no drainage on the bandage. Her vital signs are stable and she is afebrile. Infectious Disease on consult and appreciated. It is noted that antibiotics have been stopped. Blood cultures negative. Pathology for amputated portion of foot removed bone was positive for chronic osteomyelitis. Should be noted that this was bone that was removed completely. Remaining bone was not sent to pathology for concern of seeding any potential infection. Remaining bone showed no signs of infection during surgery. Post amputation swab was negative for bacterial growth. Wound care: Betadine wet-to-dry dressing was reapplied with Adaptic, gauze, abdominal pads, Kerlix, and Arjun wrap to be changed every other day. Keep dressing clean, dry and intact otherwise. No weightbearing left foot, keep left foot elevated. To use assistive device and work with PT and OT. It is noted she also had recent vascular surgery intervention in the outpatient setting and has optimized perfusion status. All questions answered. It is noted her discharge is planned for potential later today. Podiatry will continue to follow. Please do not hesitate to call if you have any questions. [facility] with me for likely suture. Medical management per primary team is appreciated. Ivanna Magana DPM, FACFAS [facility] [phone]
[2021-01-03 06:53] VITALS: O2SAT 97
[2021-01-03] MEDS: Clopidogrel Bisulfate 75 MG Tablet PO (06:57)
[2021-01-03] MEDS: Lisinopril 20 MG Tablet PO ×2 (06:57→17:44)
[2021-01-03] MEDS: Pantoprazole Sodium 20 MG Tablet PO ×2 (06:57→17:44)
[2021-01-03] MEDS: Loratadine 10 MG Tablet PO (06:57)
[2021-01-03] MEDS: amLODIPine 5 MG Tablet PO ×2 (06:57→17:44)
[2021-01-03] MEDS: guaiFENesin 600 MG Tablet PO ×2 (06:57→17:48)
[2021-01-03] MEDS: Isosorbide Mononitrate 60 MG Tablet PO (06:57)
[2021-01-03] MEDS: Menthol/Lanolin/Calamine/Znox 113 GM Tube 1 APPLIC TOPICAL ×2 (06:58→17:55)
[2021-01-03 07:20] LABS: Bedside Glucose 135 mg/dL (70-110)
[2021-01-03] MEDS: Allopurinol 100 MG Tablet PO (08:51)
[2021-01-03] MEDS: Multivitamins,Ther W-Minerals Tablet 1 TABLET PO (08:51)
[2021-01-03] MEDS: Carvedilol 25 MG Tablet PO ×2 (08:52→17:44)
[2021-01-03] MEDS: Creon 24,000 unit DR Capsule 1 CAP PO ×2 (08:52→17:45)
[2021-01-03] MEDS: Aspirin E.C. 81 MG Tablet PO (08:52)
--- NOTE | 2021-01-03 09:46 | CASEMGMT ---
Social Work SW met with pt who states she does not feel welll today and is agreeable to continue with stay on TCU. SW will speak with pt tomorrow to determine how she is feeling about discharge at that time. Pt requested SW notify pt spouse. Phone call to Dax and updated that pt does not feel like she can return home today and pt will be reassessed tomorrow. Dax is in agreement with discharge plan. MARTIN Oropeza
[2021-01-03 11:06] LABS: Bedside Glucose 182 mg/dL (70-110)
[2021-01-03] MEDS: oxyCODONE 5 MG Tablet PO ×2 (11:17→17:44)
[2021-01-03 14:13] VITALS: BP 138/49; PULSE 73; RESP 17; TEMP 35.9; O2SAT 98
[2021-01-03 16:01] LABS: Bedside Glucose 262 mg/dL (70-110)
[2021-01-03] MEDS: Metoclopramide 10 MG Tablet PO ×2 (17:53→22:27)
--- NOTE | 2021-01-03 18:06 | NURSING ---
C/O diarrhea Dr Rush made aware. KUB and Imodium ordered
--- NOTE | 2021-01-03 18:35 | RAD_ITS ---
STUDY: X-RAY - ABDOMEN/PELVIS REASON FOR EXAM: Female, 75 years old. Diarrhea. TECHNIQUE: KUB COMPARISON: 12/26/2020. FINDINGS: Normal visualized lung bases. Postsurgical changes in left upper quadrant. Nonspecific diffuse ileus pattern.. There is no demonstrated free abdominal air. The visualized liver, spleen and kidneys are grossly normal in size and morphology. Normal soft tissue structures. Lumbar spine demonstrates degenerative change.. There is worsening of the ileus when compared with previous exam RAD/Abdomen Single View IMPRESSION: Diffuse nonspecific ileus. Electronically Signed: Nicholas Gibbons MD at 18:49 EDT , Service support ,
--- NOTE | 2021-01-03 19:38 | NURSING ---
Dr. Rush updated on pt's KUB new order for NS 75 ml/hr and discontinue Imodium.
[2021-01-03 21:25] VITALS: RESP 16
--- NOTE | 2021-01-03 21:37 | NURSING ---
Unable to gain IV access at this time x2 nurse attempts. notified via phone. display fabrication supervisor notified and to attempt for access if needed
[2021-01-03 22:01] LABS: Bedside Glucose 272 mg/dL (70-110)
[2021-01-03] MEDS: Pravastatin 40 MG Tablet PO (22:24)
[2021-01-03] MEDS: Levothyroxine 75 MCG Tablet PO (22:25)
[2021-01-03] MEDS: morphine (oral solution) 10MG/0.5ML Syringe 6 MG PO (23:45)
[2021-01-04] MEDS: 0.9% Normal Saline 1,000 ML 75 ML IV ×3 (00:16→22:51)
[2021-01-04] MEDS: guaiFENesin Dm 10 ML UDC PO ×2 (05:15→13:55)
[2021-01-04] MEDS: amLODIPine 5 MG Tablet PO ×2 (05:17→17:54)
[2021-01-04] MEDS: Loratadine 10 MG Tablet PO (05:17)
[2021-01-04] MEDS: guaiFENesin 600 MG Tablet PO ×2 (05:17→17:54)
[2021-01-04] MEDS: Clopidogrel Bisulfate 75 MG Tablet PO (05:17)
[2021-01-04] MEDS: Isosorbide Mononitrate 60 MG Tablet PO (05:17)
[2021-01-04] MEDS: Pantoprazole Sodium 20 MG Tablet PO ×2 (05:17→17:54)
[2021-01-04] MEDS: Lisinopril 20 MG Tablet PO ×2 (05:17→17:54)
[2021-01-04] MEDS: Menthol/Lanolin/Calamine/Znox 113 GM Tube 1 APPLIC TOPICAL ×2 (05:20→17:55)
[2021-01-04] MEDS: oxyCODONE 5 MG Tablet PO ×3 (05:31→22:58)
[2021-01-04 05:46] VITALS: BP 132/55; PULSE 97; RESP 18; TEMP 36.9; O2SAT 97
--- NOTE | 2021-01-04 07:40 | RAD_ITS ---
STUDY: X-RAY CHEST REASON FOR EXAM: Female, 75 years old. One week history of worsening cough. TECHNIQUE: PA and lateral views of the chest. COMPARISON: Comparison is made with prior examination dated 01/02/2021. FINDINGS: Since prior study, there has been progressive infiltrate in the left midlung and left lower lobe. The right lung remains clear. There is no demonstrated pleural abnormality. Sternal cerclage wires and vascular clips are present from a prior sternotomy and coronary artery bypass graft procedure (CABG). Normal mediastinum and oniel. Normal visualized pulmonary arteries. There is atherosclerotic calcification of the aortic arch with tortuosity. There are diffuse degenerative changes of the visualized thoracic spine. Prior fusion in the lower cervical spine. Hiatal hernia. RAD/Chest PA and Lateral IMPRESSION: Increasing infiltration in the left midlung and left lower lobe. Electronically Signed: Delvin Morton MD at 14:04 EDT , Service support ,
[2021-01-04 08:10] LABS: Bedside Glucose 167 mg/dL (70-110)
[2021-01-04] MEDS: Allopurinol 100 MG Tablet PO (08:29)
[2021-01-04] MEDS: 0.9% Saline Lock 10 ML Syringe IV (08:29)
[2021-01-04] MEDS: Aspirin E.C. 81 MG Tablet PO (08:30)
[2021-01-04] MEDS: Creon 24,000 unit DR Capsule 1 CAP PO ×2 (08:30→17:54)
[2021-01-04] MEDS: Carvedilol 25 MG Tablet PO ×2 (08:30→17:54)
[2021-01-04] MEDS: Multivitamins,Ther W-Minerals Tablet 1 TABLET PO (08:30)
[2021-01-04] MEDS: Azithromycin 250 MG Tablet 500 MG PO (08:30)
[2021-01-04] MEDS: Metoclopramide 10 MG Tablet PO ×4 (08:31→22:48)
[2021-01-04] MEDS: Acetaminophen 500 MG Tablet 1000 MG PO (09:37)
[2021-01-04 10:35] LABS: Bedside Glucose 251 mg/dL (70-110)
[2021-01-04 14:50] VITALS: BP 138/45; PULSE 80; RESP 16; TEMP 36.1; O2SAT 98
[2021-01-04 16:56] LABS: Bedside Glucose 209 mg/dL (70-110)
[2021-01-04] MEDS: Cefdinir 300 MG Capsule PO (17:54)
[2021-01-04 21:56] LABS: Bedside Glucose 302 mg/dL (70-110)
[2021-01-04] MEDS: guaiFENesin/Codeine 5 ML UDC PO (22:17)
[2021-01-04 22:39] VITALS: BP 143/68; PULSE 96
[2021-01-04 22:48] VITALS: PULSE 100; RESP 16
[2021-01-04] MEDS: Levothyroxine 75 MCG Tablet PO (22:48)
[2021-01-04] MEDS: Pravastatin 40 MG Tablet PO (22:48)
[2021-01-04] MEDS: traZODone 100 MG Tablet PO (22:51)
[2021-01-05 03:31] LABS: Bedside Glucose 104 mg/dL (70-110)
[2021-01-05 05:00] VITALS: BP 121/56; PULSE 92; RESP 18; TEMP 36.7; O2SAT 92
[2021-01-05 05:43] LABS: Absolute Lymphocyte Count 2.87 X10^3/uL (0.83-4.51); Absolute Neutrophil Count 10.6 X10^3/uL (2.0-7.7); Basophil# 0.03 X10^3/uL; Basophil% 0.2 % (0-1); Eosinophil# 0.65 X10^3/uL; Eosinophils% 4.2 % (0-5); Hematocrit 32.7 % (37-47); Hemoglobin 9.9 g/dL (12.0-15.0); Lymphocyte # 2.87 X10^3/ul (0.83-4.51); Lymphocyte % 18.6 % (19-41); Mean Corp Hgb Conc 30.3 g/dL (32-36); Mean Corpuscular Hgb 25.6 pg (27.0-32.0); Mean Corpuscular Volume 84.7 fL (81-99); Mean Platelet Vol. 9.5 fl (6.2-12.0); Monocyte% 7.8 % (0-10); NRBC Flagged by Analyzer 0 % (0-5); Neutrophil # 10.63 X10^3/uL (2.7-7.7); Neutrophil % 68.6 % (47-70); Platelet Count 242 K/mm3 (150-450); RBC Distribution Width CV 15.2 % (11.6-14.6); RBC Distribution Width SD 46.6 fl (35.1-43.9); Red Blood Count 3.86 M/mm3 (4.2-5.4); White Blood Count 15.5 K/mm3 (4.4-11.0)
[2021-01-05] MEDS: 0.9% Normal Saline 1,000 ML 75 ML IV ×2 (06:13→21:23)
[2021-01-05 06:15] LABS: Anion Gap 8 (5-15); BUN 22 mg/dL (7-18); BUN/Creat Ratio 17.7 RATIO (10-20); Calcium,Total 7.7 mg/dL (8.5-10.1); Chloride 113 mmol/L (98-107); Creatinine, Serum 1.24 mg/dL (0.55-1.02); EST Glomerular Filtration Rate 45 mL/min (>60); Est Glom Filt Rate - Afr Amer 54 mL/min (>60); Estimated Creatinine Clearance 34.89 ml/min; Glucose 101 mg/dL (74-106); Potassium 4.3 mmol/L (3.5-5.1); Sodium Level 138 mmol/L (136-145)
[2021-01-05] MEDS: guaiFENesin/Codeine 5 ML UDC PO ×2 (06:16→14:24)
[2021-01-05] MEDS: Clopidogrel Bisulfate 75 MG Tablet PO (06:16)
[2021-01-05] MEDS: Lisinopril 20 MG Tablet PO ×2 (06:16→18:07)
[2021-01-05] MEDS: Isosorbide Mononitrate 60 MG Tablet PO (06:16)
[2021-01-05] MEDS: Cefdinir 300 MG Capsule PO ×2 (06:16→18:07)
[2021-01-05] MEDS: guaiFENesin 600 MG Tablet PO ×2 (06:16→18:07)
[2021-01-05] MEDS: amLODIPine 5 MG Tablet PO ×2 (06:16→18:07)
[2021-01-05] MEDS: Polyethylene Glycol 3350 17 GM PACKET PO (06:16)
[2021-01-05] MEDS: Loratadine 10 MG Tablet PO (06:16)
[2021-01-05] MEDS: Pantoprazole Sodium 20 MG Tablet PO ×2 (06:17→18:07)
[2021-01-05] MEDS: Aspirin E.C. 81 MG Tablet PO (09:02)
[2021-01-05] MEDS: Allopurinol 100 MG Tablet PO (09:02)
[2021-01-05] MEDS: Metoclopramide 10 MG Tablet PO ×4 (09:02→21:30)
[2021-01-05] MEDS: Carvedilol 25 MG Tablet PO ×2 (09:02→18:06)
[2021-01-05] MEDS: Creon 24,000 unit DR Capsule 1 CAP PO ×2 (09:02→18:06)
[2021-01-05] MEDS: Multivitamins,Ther W-Minerals Tablet 1 TABLET PO (09:02)
[2021-01-05] MEDS: Azithromycin 250 MG Tablet PO (09:03)
[2021-01-05 10:00] VITALS: PULSE 96; RESP 16
[2021-01-05 10:51] LABS: Bedside Glucose 147 mg/dL (70-110)
[2021-01-05] MEDS: oxyCODONE 5 MG Tablet PO (14:24)
[2021-01-05 14:43] VITALS: BP 143/63; PULSE 85; RESP 18; TEMP 37.1; O2SAT 96
--- NOTE | 2021-01-05 15:28 | CASEMGMT ---
Social Work SW met with pt in room. Pt stating she continues to not feel well. Pt currently receiving IV fluids. Pt agreeable to stay through the weekend and will meet with pt again on Saturday to discuss discharge. MARTIN Oropeza
[2021-01-05 16:36] LABS: Bedside Glucose 119 mg/dL (70-110)
[2021-01-05] MEDS: Loperamide 2 MG Capsule 4 MG PO (18:08)
[2021-01-05] MEDS: Levothyroxine 75 MCG Tablet PO (21:30)
[2021-01-05] MEDS: Pravastatin 40 MG Tablet PO (21:30)
[2021-01-05] MEDS: guaiFENesin/Codeine 5 ML UDC 10 ML PO (21:44)
[2021-01-05 21:45] LABS: Bedside Glucose 294 mg/dL (70-110)
[2021-01-05] MEDS: traZODone 100 MG Tablet PO (21:45)
[2021-01-06] MEDS: guaiFENesin/Codeine 5 ML UDC 10 ML PO ×3 (03:31→15:48)
[2021-01-06 03:40] VITALS: BP 139/74; PULSE 107; RESP 22; TEMP 37.1; O2SAT 97
[2021-01-06] MEDS: oxyCODONE 5 MG Tablet PO ×3 (03:43→21:57)
[2021-01-06] MEDS: Acetaminophen 500 MG Tablet 1000 MG PO ×2 (03:44→12:29)
[2021-01-06] MEDS: Loratadine 10 MG Tablet PO (03:45)
[2021-01-06] MEDS: Isosorbide Mononitrate 60 MG Tablet PO (03:45)
[2021-01-06] MEDS: guaiFENesin 600 MG Tablet PO ×2 (03:46→16:57)
[2021-01-06] MEDS: amLODIPine 5 MG Tablet PO ×2 (03:46→16:58)
[2021-01-06] MEDS: Pantoprazole Sodium 20 MG Tablet PO ×2 (03:47→16:59)
[2021-01-06] MEDS: Clopidogrel Bisulfate 75 MG Tablet PO (03:47)
[2021-01-06] MEDS: Cefdinir 300 MG Capsule PO ×2 (03:47→16:58)
[2021-01-06] MEDS: Lisinopril 20 MG Tablet PO ×2 (03:48→17:00)
[2021-01-06 06:26] LABS: Bedside Glucose 117 mg/dL (70-110)
[2021-01-06] MEDS: 0.9% Normal Saline 1,000 ML 75 ML IV (08:02)
[2021-01-06] MEDS: Allopurinol 100 MG Tablet PO (09:41)
[2021-01-06] MEDS: Azithromycin 250 MG Tablet PO (09:41)
[2021-01-06] MEDS: Multivitamins,Ther W-Minerals Tablet 1 TABLET PO (09:41)
[2021-01-06] MEDS: Creon 24,000 unit DR Capsule 1 CAP PO ×2 (09:42→16:55)
[2021-01-06] MEDS: Carvedilol 25 MG Tablet PO ×2 (09:42→16:55)
[2021-01-06] MEDS: Metoclopramide 10 MG Tablet PO ×4 (09:42→22:03)
[2021-01-06] MEDS: Aspirin E.C. 81 MG Tablet PO (09:56)
[2021-01-06 11:06] LABS: Bedside Glucose 219 mg/dL (70-110)
[2021-01-06 14:39] VITALS: BP 144/54; PULSE 76; RESP 16; TEMP 36.1; O2SAT 98
[2021-01-06 16:51] LABS: Bedside Glucose 184 mg/dL (70-110)
--- NOTE | 2021-01-06 18:16 | PCM.PN.BLA ---
Progress Note Day #3 azithromycin and cefdinir for pneumonia She is afebrile. Vital signs are stable. She is maintaining appropriate oxygen saturation on room air Oral intake has improved and today she took 1550 p.o. appetite is getting better....she had a pizza for dinner All lab from 01/04/2021 was personally reviewed. The white blood cell count was elevated at 15.5 but the differential was unremarkable. Hemoglobin is stable at 9.9 and platelets were within normal limits. Serum bicarb is low at 17 and the BUN is 22 with a creatinine of 1.24 which is within her baseline. BUN/creatinine ratio was within normal limits following hydration. Physical Exam Narrative Alert, pleasant, appropriate, speaking in full sentences, no conversational dyspnea, not tachypneic. Resp Resp Narrative: Symmetric chest rise. Lungs are clear to auscultation posteriorly but she has loud coarse crackles anteriorly and lateral on the left. No wheezing and no rhonchi. Assessment & Plan Assessment/Plan (1) Pneumonia: PLAN: 1. Continue cefdinir and azithromycin 2. Increase Mucinex to 1200 mg p.o. twice daily 3. DC guaifenesin with codeine and start Tessalon Perles 100 mg p.o. every 4 hours as needed cough Visit Charges Inpatient E&M: 54056 Subs Hosp L2
--- NOTE | 2021-01-06 18:19 | NURSING ---
DR. DOYLE AWARE THAT IV LEAKED AND WAS DC'D AND IVF ARE NOT RUNNING. SHE WILL ASSESS AND DECIDE IF IVF NEED TO BE CONT'.
[2021-01-06] MEDS: Benzonatate 100 MG Capsule PO (21:57)
[2021-01-06] MEDS: tiZANidine HCl 2 MG Tablet 4 MG PO (22:00)
[2021-01-06] MEDS: Levothyroxine 75 MCG Tablet PO (22:03)
[2021-01-06] MEDS: Pravastatin 40 MG Tablet PO (22:03)
--- NOTE | 2021-01-06 22:30 | NURSING ---
Pt. voices displeasure with Robitussin with Codeine being discontinued, patient states will demand throughout the night. Educated on new order for Tessalon pearls and administered as ordered. Pt. requests doctor be contacted for Robitussin/Codeine order. Dr. Gómez notified of patient request for Robitussin with Codeine to be ordered, per Dr. Gómez continue with ordered Tessalon pearls. No new orders received.
[2021-01-06 22:45] LABS: Bedside Glucose 224 mg/dL (70-110)
[2021-01-06 23:00] VITALS: PULSE 99; RESP 18; O2SAT 95
--- NOTE | 2021-01-06 23:40 | NURSING ---
Unable to collect sputum sample at this time, pt. states no sputum to expectorate. Pt. educated to notify nurse when able to expectorate, verbalizes understanding.
[2021-01-07] MEDS: Acetaminophen 500 MG Tablet 1000 MG PO (02:09)
[2021-01-07] MEDS: Benzonatate 100 MG Capsule PO ×5 (02:10→19:54)
[2021-01-07] MEDS: morphine (oral solution) 10MG/0.5ML Syringe 6 MG PO (02:21)
[2021-01-07 05:00] VITALS: BP 134/65; PULSE 88; RESP 18; TEMP 35.9; O2SAT 96
[2021-01-07 06:31] LABS: Bedside Glucose 96 mg/dL (70-110)
[2021-01-07] MEDS: amLODIPine 5 MG Tablet PO ×2 (06:36→17:34)
[2021-01-07] MEDS: Pantoprazole Sodium 20 MG Tablet PO ×2 (06:36→17:34)
[2021-01-07] MEDS: Cefdinir 300 MG Capsule PO ×2 (06:37→17:34)
[2021-01-07] MEDS: Lisinopril 20 MG Tablet PO ×2 (06:37→17:34)
[2021-01-07] MEDS: guaiFENesin 1,200 MG Tablet 1200 MG PO ×2 (06:37→17:34)
[2021-01-07] MEDS: Clopidogrel Bisulfate 75 MG Tablet PO (06:38)
[2021-01-07] MEDS: Isosorbide Mononitrate 60 MG Tablet PO ×2 (06:40→19:56)
[2021-01-07] MEDS: Loratadine 10 MG Tablet PO (06:40)
--- NOTE | 2021-01-07 08:20 | CPS ---
STARTED BY NURSING
[2021-01-07] MEDS: Carvedilol 25 MG Tablet PO ×2 (08:59→17:34)
[2021-01-07] MEDS: Creon 24,000 unit DR Capsule 1 CAP PO ×2 (08:59→17:36)
[2021-01-07] MEDS: Azithromycin 250 MG Tablet PO (08:59)
[2021-01-07] MEDS: Aspirin E.C. 81 MG Tablet PO (08:59)
[2021-01-07] MEDS: Multivitamins,Ther W-Minerals Tablet 1 TABLET PO (08:59)
[2021-01-07] MEDS: Metoclopramide 10 MG Tablet PO ×4 (08:59→19:57)
[2021-01-07] MEDS: Allopurinol 100 MG Tablet PO (09:00)
[2021-01-07] MEDS: Loperamide 2 MG Capsule 4 MG PO (09:07)
[2021-01-07 10:00] VITALS: PULSE 76; RESP 18; O2SAT 97
[2021-01-07] MEDS: oxyCODONE 5 MG Tablet PO ×2 (11:09→19:54)
[2021-01-07 11:16] LABS: Bedside Glucose 158 mg/dL (70-110)
[2021-01-07 14:19] VITALS: BP 165/56; PULSE 79; RESP 18; TEMP 36.1; O2SAT 98
[2021-01-07 17:15] LABS: Bedside Glucose 135 mg/dL (70-110)
[2021-01-07] MEDS: Pravastatin 40 MG Tablet PO (19:56)
[2021-01-07] MEDS: Levothyroxine 75 MCG Tablet PO (19:59)
[2021-01-07] MEDS: traZODone 100 MG Tablet PO (20:07)
[2021-01-07 22:31] LABS: Bedside Glucose 196 mg/dL (70-110)
[2021-01-07] MEDS: tiZANidine HCl 2 MG Tablet 4 MG PO (22:40)
[2021-01-08] MEDS: Loperamide 2 MG Capsule 4 MG PO (02:01)
[2021-01-08] MEDS: Benzonatate 100 MG Capsule PO ×5 (02:01→22:00)
[2021-01-08] MEDS: Loratadine 10 MG Tablet PO (06:20)
[2021-01-08] MEDS: Menthol/Lanolin/Calamine/Znox 113 GM Tube 1 APPLIC TOPICAL (06:20)
[2021-01-08] MEDS: Metoclopramide 10 MG Tablet PO ×4 (06:21→21:47)
[2021-01-08] MEDS: Cefdinir 300 MG Capsule PO ×2 (06:21→16:54)
[2021-01-08] MEDS: Pantoprazole Sodium 20 MG Tablet PO ×2 (06:21→16:53)
[2021-01-08] MEDS: Clopidogrel Bisulfate 75 MG Tablet PO (06:21)
[2021-01-08] MEDS: guaiFENesin 1,200 MG Tablet 1200 MG PO ×2 (06:21→16:58)
[2021-01-08] MEDS: Lisinopril 20 MG Tablet PO ×2 (06:27→16:53)
[2021-01-08] MEDS: amLODIPine 5 MG Tablet PO ×2 (06:27→16:54)
[2021-01-08 07:32] VITALS: BP 155/70; PULSE 86; RESP 14; TEMP 36.2; O2SAT 96
[2021-01-08] MEDS: Azithromycin 250 MG Tablet PO (09:03)
[2021-01-08] MEDS: Carvedilol 25 MG Tablet PO ×2 (09:03→16:57)
[2021-01-08] MEDS: Aspirin E.C. 81 MG Tablet PO (09:03)
[2021-01-08] MEDS: Multivitamins,Ther W-Minerals Tablet 1 TABLET PO (09:03)
[2021-01-08] MEDS: Creon 24,000 unit DR Capsule 1 CAP PO ×2 (09:05→16:55)
[2021-01-08] MEDS: Allopurinol 100 MG Tablet PO (09:05)
[2021-01-08 09:11] LABS: Bedside Glucose 76 mg/dL (70-110)
[2021-01-08] MEDS: oxyCODONE 5 MG Tablet PO ×2 (09:31→23:32)
[2021-01-08 11:01] LABS: Bedside Glucose 200 mg/dL (70-110)
--- NOTE | 2021-01-08 12:19 | PN_ITS ---
Subjective Subjective Patient was seen today for follow up on left foot. 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 She denies foot pain. She is ready for suture removal today. She denies fever, chill, nausea, vomiting. It is noted she is currently being treated for pneumonia and this has [facility]. Objective Data Objective Data Vital Signs: Vital Signs Temp Pulse Resp BP Pulse Ox 97.2 F L 86 14 155/70 H 96 01/08/21 07:32 01/08/21 07:32 01/08/21 07:32 01/08/21 07:32 01/08/21 07:32 Oxygen Delivery Method Room Air Weight: 78.953 kg Body Mass Index (BMI) 30.9 Intake & Output: Intake and Output for Last 24 Hours 01/06/21 01/07/21 01/08/21 23:59 23:59 23:59 Intake Total 2720.00 / 2720.00 780 / 780 480 / 480 Output Total 1999 / 1999 Balance 720.00 / 720.00 780 / 780 480 / 480 Medical Nutrition Assessment Dietitian: Nutrition Therapy Diagnosis Start: 12/15/20 10:55 Freq: Status: Active Protocol: Document 01/04/21 15:31 [facility] (Rec: 01/04/21 15:31 SLA [id number]) Nutrition Malnutrition Evidence of Malnutrition Exists No Intake Problem Increased Nutrient Needs (specify) Etiology Increased protein needs related to wound healing Signs/Symptoms as evidenced by left foot amputation surgical incision and need for Blue bid Status Active Problem Inadequate Oral Intake Etiology related to ileus and not feeling hungry Signs/Symptoms as evidenced by poor po intake x 4 days Status Active Problem Recommendation Dietitian Recommendations/Changes Will liberalize diet to Regular d/t poor po intake. Continue Blue 1 pkt BID for wound healing. to continue bringing premier protein for res while on TCU. Will provide additional nutrition education as warranted by pt prior to discharge. Lab / Micro Data Result Diagrams: 01/05/21 05:27 01/05/21 05:27 Labs: Laboratory Results - last 24 hr 01/07/21 17:08: POC Glucose 135 H 01/07/21 22:23: POC Glucose 196 H 01/08/21 09:02: POC Glucose 76 01/08/21 10:53: POC Glucose 200 H Micro: Microbiology 01/04/21 14:45 Mucosa - Nasopharyngeal SARS-CoV-2 Antigen (Rapid) - Final 12/26/20 18:50 Blood Culture (Wb) - Left Wrist Blood Culture - Final No growth in 5 days. 12/26/20 19:05 Blood Culture (Wb) - Left Hand Blood Culture - Final No growth in 5 days. 12/26/20 21:31 Mucosa - Nasopharyngeal Respiratory Panel (PCR) - Final Physical Exam Narrative Left foot: Status post Chopart amputation with sutures intact without gapping or necrosis. Upon removal of the sutures there is additionally no gapping. The apex of the rotational plantar complex flap appears viable. There is small intermittent areas of well adhered eschar on the plantar aspect that remain intact. Steri-Strips were applied. There is no erythema, no cellulitis, no fluctuance or bogginess to the left foot. No odor or streaking or purulence to the left foot. Negative Claudio and Elizondo sign left. Compartments remain soft to palpate left lower extremity. Capillary fill time is brisk to all margins of the amputation occluding a complex flap closure. DP/PT 2/4, left Assessment & Plan Assessment/Plan (1) Abscess of left foot: (2) Type 2 diabetes mellitus with diabetic polyneuropathy: (3) Charcot's joint of left foot: (4) Osteomyelitis of left foot: PLAN: Re-evaluation performed. Clinically her amputation site appears stable and it is healing well without local signs of infection. There are no local signs of infection or necrosis. Her vital signs are stable and she is afebrile. Infectious Disease on consult and appreciated. It is noted that antibiotics have been completed for her management. It is noted she is on antibiotics for treatment of her pneumonia at this time. Blood cultures negative. Pathology for amputated portion of foot removed bone was positive for chronic osteomyelitis. It should be noted that this was bone that was removed completely. The remaining bone was not sent to pathology for concern of seeding any potential infection. Remaining bone showed no signs of infection during surgery. Post amputation and irrigation swab was negative for bacterial growth. Wound care: Sutures removed today and Steri-Strips applied. Betadine paint was performed and the dressing was reapplied with Adaptic, gauze, abdominal pads, Kerlix, and Arjun wrap. Okay to change once a week at this time. Keep dressing clean, dry and intact otherwise. No weightbearing left foot, keep left foot elevated. To use assistive device and work with PT and OT. It is noted she also had recent vascular surgery intervention in the outpatient setting and has optimized perfusion status. All questions answered. Her recent pneumonia diagnosis is noted and management per hospital physician is appreciated. It is okay to discharge from a surgical foot standpoint. Podiatry will continue to follow. Please do not hesitate to call if you have any questions. [facility] 1 week after discharge with Dr. Magana. Ivanna Magana DPM, FACF[facility] [phone]
[2021-01-08 14:29] VITALS: BP 149/55; PULSE 89; RESP 17; TEMP 36.1; O2SAT 97
[2021-01-08 17:01] LABS: Bedside Glucose 134 mg/dL (70-110)
[2021-01-08] MEDS: Pravastatin 40 MG Tablet PO (21:46)
[2021-01-08] MEDS: Levothyroxine 75 MCG Tablet PO (21:47)
[2021-01-08] MEDS: traZODone 100 MG Tablet PO (21:48)
[2021-01-08 22:10] LABS: Bedside Glucose 172 mg/dL (70-110)
[2021-01-09 06:27] VITALS: BP 121/48; PULSE 78; RESP 16; TEMP 36; O2SAT 97
[2021-01-09] MEDS: Isosorbide Mononitrate 60 MG Tablet PO (06:28)
[2021-01-09] MEDS: Loratadine 10 MG Tablet PO (06:28)
[2021-01-09] MEDS: Lisinopril 20 MG Tablet PO ×2 (06:28→17:38)
[2021-01-09] MEDS: Pantoprazole Sodium 20 MG Tablet PO ×2 (06:28→17:38)
[2021-01-09] MEDS: Clopidogrel Bisulfate 75 MG Tablet PO (06:28)
[2021-01-09] MEDS: Cefdinir 300 MG Capsule PO ×2 (06:28→17:37)
[2021-01-09] MEDS: amLODIPine 5 MG Tablet PO ×2 (06:28→17:37)
[2021-01-09] MEDS: guaiFENesin 1,200 MG Tablet 1200 MG PO ×2 (06:28→17:37)
[2021-01-09] MEDS: Benzonatate 100 MG Capsule PO ×4 (06:32→20:09)
[2021-01-09] MEDS: Creon 24,000 unit DR Capsule 1 CAP PO ×2 (09:07→17:36)
[2021-01-09] MEDS: Aspirin E.C. 81 MG Tablet PO (09:07)
[2021-01-09] MEDS: Allopurinol 100 MG Tablet PO (09:07)
[2021-01-09] MEDS: Multivitamins,Ther W-Minerals Tablet 1 TABLET PO (09:07)
[2021-01-09] MEDS: Metoclopramide 10 MG Tablet PO ×4 (09:07→20:14)
[2021-01-09] MEDS: Carvedilol 25 MG Tablet PO ×2 (09:07→17:36)
[2021-01-09 09:25] LABS: Bedside Glucose 100 mg/dL (70-110)
[2021-01-09 10:00] VITALS: O2SAT 98
[2021-01-09 10:46] LABS: Bedside Glucose 123 mg/dL (70-110)
[2021-01-09] MEDS: Azithromycin 250 MG Tablet PO (11:09)
[2021-01-09 13:24] VITALS: BP 129/55; PULSE 72; RESP 18; TEMP 36.4; O2SAT 99
--- NOTE | 2021-01-09 15:51 | CASEMGMT ---
Social Work SW met with pt who states she and her do not feel she is ready to return home at this time due to pneumonia. SW will be available for pt when discharge is decided. MARTIN Oropeza
[2021-01-09 16:21] LABS: Bedside Glucose 159 mg/dL (70-110)
[2021-01-09 17:41] VITALS: BP 150/69; PULSE 89
[2021-01-09] MEDS: Levothyroxine 75 MCG Tablet PO (20:14)
[2021-01-09] MEDS: Pravastatin 40 MG Tablet PO (20:15)
[2021-01-09 20:25] LABS: Bedside Glucose 444 mg/dL (70-110)
--- NOTE | 2021-01-09 20:28 | NURSING ---
Blood sugar checked before giving evening lantus, 444. Pt states she ate 3 chocolate covered cherries and rice that her brought in. Lantus given as ordered. Pt states she would take Humalog at home when she ate things like that, Dr. Leone notified, order for x1 humalog 10units. Will continue to monitor.
[2021-01-09] MEDS: Insulin Lispro 100 UNIT/ML INSULN.PEN 10 UNIT SC (20:47)
[2021-01-09 21:31] LABS: Bedside Glucose 405 mg/dL (70-110)
[2021-01-09] MEDS: traZODone 100 MG Tablet PO (22:46)
[2021-01-09] MEDS: oxyCODONE 5 MG Tablet PO (22:48)
[2021-01-10] MEDS: Benzonatate 100 MG Capsule PO ×4 (03:51→21:03)
[2021-01-10 06:55] VITALS: BP 111/46; PULSE 79; RESP 16; TEMP 36.7; O2SAT 96
[2021-01-10] MEDS: Isosorbide Mononitrate 60 MG Tablet PO (06:56)
[2021-01-10] MEDS: Loratadine 10 MG Tablet PO (06:56)
[2021-01-10] MEDS: guaiFENesin 1,200 MG Tablet 1200 MG PO ×2 (06:56→17:47)
[2021-01-10] MEDS: Clopidogrel Bisulfate 75 MG Tablet PO (06:57)
[2021-01-10] MEDS: Pantoprazole Sodium 20 MG Tablet PO ×2 (06:57→17:46)
[2021-01-10] MEDS: Cefdinir 300 MG Capsule PO ×2 (06:57→17:46)
[2021-01-10] MEDS: Lisinopril 20 MG Tablet PO ×2 (06:57→17:46)
[2021-01-10] MEDS: Metoclopramide 10 MG Tablet PO ×4 (06:57→21:07)
[2021-01-10] MEDS: amLODIPine 5 MG Tablet PO ×2 (06:58→17:47)
[2021-01-10] MEDS: Aspirin E.C. 81 MG Tablet PO (09:09)
[2021-01-10] MEDS: Multivitamins,Ther W-Minerals Tablet 1 TABLET PO (09:09)
[2021-01-10] MEDS: Allopurinol 100 MG Tablet PO (09:09)
[2021-01-10] MEDS: Creon 24,000 unit DR Capsule 1 CAP PO ×2 (09:10→17:47)
[2021-01-10] MEDS: Carvedilol 25 MG Tablet PO ×2 (09:15→17:47)
[2021-01-10 09:16] VITALS: BP 136/63; PULSE 87
[2021-01-10 10:56] LABS: Bedside Glucose 147 mg/dL (70-110)
[2021-01-10 15:22] VITALS: BP 134/47; PULSE 77; RESP 16; TEMP 37.2; O2SAT 97
--- NOTE | 2021-01-10 16:05 | NURSING ---
Pt went to appt with Lars FLORES new order for Fasting Lipid and Liver Profile entered. Pt is to return in 3-4 weeks to evaluate neck/arm pain. Pt is to keep appt. 07/31/[address] South.
--- NOTE | 2021-01-10 16:40 | CHAPLAIN ---
Type of Pastoral Visit ___ Initial Visit _x__ Follow-up Visit ___ On-call Visit ___ General Patient Visit ___ Spiritual Assessment ___ Family Conference ___ Bereavement ___ Rapid Response ___ Code Blue ___ Other (describe below) Pastoral Care Referral From _x__ Patient ___ Family ___ Nurse ___ Physician ___ Convention Planner ___ Digester Cook ___ Other (describe below) Sacrament/Intervention _x__ Active listening ___ Anointing ___ Zoroastrian ___ Bereavement ___ Communion ___ Sharron exploration ___ ___ Life review _x__ Prayer ___ Reconciliation ___ Sacrament of Sick _x__ Supportive presence ___ Wedding ___ Other (describe below) Pastoral Comments
[2021-01-10 17:16] LABS: Bedside Glucose 266 mg/dL (70-110)
[2021-01-10] MEDS: Acetaminophen 500 MG Tablet 1000 MG PO (19:09)
[2021-01-10 19:21] LABS: Bedside Glucose 397 mg/dL (70-110)
[2021-01-10] MEDS: Levothyroxine 75 MCG Tablet PO (21:07)
[2021-01-10] MEDS: Pravastatin 40 MG Tablet PO (21:07)
[2021-01-10] MEDS: traZODone 100 MG Tablet PO (21:14)
[2021-01-10 21:15] VITALS: PULSE 72; RESP 18; O2SAT 99
[2021-01-10] MEDS: oxyCODONE 5 MG Tablet PO (22:49)
[2021-01-11 06:11] LABS: AST(SGOT) 33 U/L (15-37); Alanine Aminotransfer ALT/SGPT 32 U/L (13-56); Albumin, Serum 2.4 g/dL (3.2-5.0); Alkaline Phosphatase 81 U/L (45-117); Bilirubin, Direct 0.09 mg/dL (0.00-0.30); Cholesterol 125 mg/dL (200); Globulin 4.3 g/dL (2.2-4.2); High Density Lipoprotein 39 mg/dL; Protein, Total 6.7 g/dL (6.4-8.2); Triglycerides 133 mg/dL; Very Low Density Lipoprotein 27 mg/dL (5-40)
[2021-01-11 06:40] VITALS: BP 131/74; PULSE 74
[2021-01-11] MEDS: Cefdinir 300 MG Capsule PO ×2 (06:41→16:59)
[2021-01-11] MEDS: guaiFENesin 1,200 MG Tablet 1200 MG PO ×2 (06:41→17:00)
[2021-01-11] MEDS: Loratadine 10 MG Tablet PO (06:41)
[2021-01-11] MEDS: amLODIPine 5 MG Tablet PO ×2 (06:41→16:58)
[2021-01-11] MEDS: Isosorbide Mononitrate 60 MG Tablet PO (06:41)
[2021-01-11] MEDS: Metoclopramide 10 MG Tablet PO ×3 (06:41→15:11)
[2021-01-11] MEDS: Lisinopril 20 MG Tablet PO ×2 (06:41→17:01)
[2021-01-11] MEDS: Clopidogrel Bisulfate 75 MG Tablet PO (06:42)
[2021-01-11] MEDS: Pantoprazole Sodium 20 MG Tablet PO ×2 (06:42→16:59)
[2021-01-11] MEDS: Aspirin E.C. 81 MG Tablet PO (09:01)
[2021-01-11] MEDS: Allopurinol 100 MG Tablet PO (09:01)
[2021-01-11] MEDS: Multivitamins,Ther W-Minerals Tablet 1 TABLET PO (09:01)
[2021-01-11] MEDS: Carvedilol 25 MG Tablet PO ×2 (09:01→17:00)
[2021-01-11] MEDS: Creon 24,000 unit DR Capsule 1 CAP PO ×2 (09:02→16:58)
[2021-01-11 09:11] LABS: Bedside Glucose 96 mg/dL (70-110)
--- NOTE | 2021-01-11 11:06 | CASEMGMT ---
Social Work SW recieved message from REFERENCE ASSISTANT that pt is stating she is going home today. SW met with pt who confirms that she and spouse have decided that she is able to return home today. SW informed pt that discharge orders are not written at this time, but pt can discharge this evening after physician makes rounds. Pt is agreeable to this and will notify spouse. Ramp has been installed in pt house. Dressing changes are once a week and pt states she will have this done at Dr. Magana's office and denies need for home health. Pt has all needed DME. Discharge Date: 01/11/21 Discharge Disposition: Home with . No services. Pt to follow up with Dr. Magana. MARTIN Oropeza
[2021-01-11] MEDS: Benzonatate 100 MG Capsule PO ×2 (11:10→15:11)
[2021-01-11 11:21] LABS: Bedside Glucose 178 mg/dL (70-110)
[2021-01-11 11:29] VITALS: RESP 16; O2SAT 97
--- NOTE | 2021-01-11 12:21 | DS.PCM_ITS ---
Providers Date of Admission: 12/14/20 Primary Care Physician: Dr. Con Johnson MD Consultations 12/15/20 07:01 Consult: Podiatry Routine Consulting Provider: Ivanna Magana Reason for Consult: continuity of care post operative foot amputation, left EMERGENT Consult: No Notified: Yes Date Notified: 12/15/20 Time Notified: 07:01 Method of Notification: Verbal 12/15/20 08:00 Consult: Onc/Wound/bromination equipment operator Routine Comment: wound to left foot 12/15/20 08:14 Consult: Infectious Disease Routine Consulting Provider: Adam Webb Reason for Consult: Osteomyelitis left foot status post amputation, IV antibiotic course? EMERGENT Consult: No Notified: Yes Date Notified: 12/15/20 Time Notified: 08:14 Method of Notification: Provider Initiated Method of Consult:: In-Person Comments:: in to see pt this am. Reason For Visit: LEFT FOOT DIABETIC INFECTION Diagnosis Discharge Diagnosis (1) Abscess of left foot: Status: Acute Code(s): L02.612 - Cutaneous abscess of left foot (2) Type 2 diabetes mellitus with diabetic polyneuropathy: Code(s): E11.42 - Type 2 diabetes mellitus with diabetic polyneuropathy (3) Charcot's joint of left foot: Code(s): M14.672 - Charcot's joint, left ankle and foot (4) Osteomyelitis of left foot: Status: Acute Code(s): M86.9 - Osteomyelitis, unspecified Medications at Discharge Home Medications pravastatin 40 mg PO QHS 03/10/17 allopurinol 100 mg PO DAILY 03/17/20 calcium citrate 200 mg PO BID #0 03/17/20 aspirin 81 mg tablet,delayed release 81 mg PO DAILY 04/05/20 cbd 1 dose PO 4X/DAY PRN PRN 04/05/20 bnumtp-shoycbbs-pxzuiyx 24,000-76,000-120,000 unit capsule,delayed rel 1 cap PO BID cap 04/05/20 carvedilol 25 mg PO BID 08/17/20 levothyroxine 75 mcg PO QHS 08/17/20 linaclotide 72 mcg PO DAILY 08/17/20 metoclopramide HCl 10 mg PO Q8H PRN PRN 08/17/20 anfncfctblrh-tisu-hgpbq acid 0.5 tablet PO BID 08/17/20 trazodone 100 mg PO QHS PRN PRN 08/17/20 venlafaxine 100 mg PO BID 08/17/20 insulin lispro 6 - 8 unit SUBCUT BID 08/22/20 acetaminophen 1,000 mg PO Q8H PRN PRN #0 tablet 09/09/20 tizanidine 4 mg PO Q8H PRN PRN #20 tablet 09/09/20 clopidogrel 75 mg tablet 75 mg PO DAILY #90 tablet 09/16/20 glgzr-oyaf-PrVNU-zmrnnw-gf-nfs 1 packet PO BIDCM 09/19/20 morphine 3 ml PO Q6H PRN PRN 09/19/20 nitroglycerin 0.4 mg SL TID PRN PRN 09/19/20 polyethylene glycol 3350 17 gm PO DAILY 09/19/20 sennosides-docusate sodium 1 tablet PO QHS 09/19/20 amlodipine 5 mg tablet 5 mg PO BID #180 tab 11/09/20 esomeprazole magnesium 20 mg PO BID 12/08/20 fexofenadine 180 mg PO DAILY 12/08/20 guaifenesin [Mucus Relief ER] 600 mg PO DAILY 12/08/20 isosorbide mononitrate 60 mg PO DAILY 12/08/20 isosorbide mononitrate 120 mg PO QHS 12/08/20 Lantus Solostar U-100 Insulin 25 unit SUBCUT BID 12/14/20 lisinopril 20 mg PO BID 12/14/20 meropenem 1 g IV Q8H 12/14/20 oxycodone 5 mg PO Q6H PRN PRN #0 tab 12/14/20 Hospital Course Operations None Procedures - (Chopart left foot amputation.) Summary of Care Provided Minutes Spent on Discharge: 35 Hospital Course: 75 year old female with below past medical history hospitalized for osteomyelitis left diabetic foot, underwent modified Chopart amputation of left foot 12/13/[address] Magana, admitted to TCU with debility, here for rehabilitation, strengthening, intravenous antibiotics, prior to discharge home with . Discharge home with 01/11/2021, No services. Physical Exam Const alert and oriented x3 General Appearance: cooperative HEENT normocephalic Eyes PERRL and EOMs intact bilaterally Neck supple, no JVD and no carotid bruits Resp normal respiratory effort, normal air movement and clear to auscultation bilaterally Cardio regular rate and regular rhythm GI normal to inspection, nondistended, normoactive bowel sounds, non-tender and non-distended Extremity normal capillary refill General Extremity: Negative for edema Skin no rashes or lesions noted General Skin Exam: no breakdown Psych affect normal Appearance: appropriate Medical Records Data Medical Nutrition Assessment Dietitian: Malnutrition Criteria Met Start: 12/15/20 10:55 Freq: Status: Active Protocol: Document 01/04/21 15:31 [facility] (Rec: 01/04/21 15:31 [facility] [id number]) Nutrition Malnutrition Evidence of Malnutrition Exists No Intake Problem Increased Nutrient Needs (specify) Etiology Increased protein needs related to wound healing Signs/Symptoms as evidenced by left foot amputation surgical incision and need for Blue bid Status Active Problem Inadequate Oral Intake Etiology related to ileus and not feeling hungry Signs/Symptoms as evidenced by poor po intake x 4 days Status Active Problem Recommendation Dietitian Recommendations/Changes Will liberalize diet to Regular d/t poor po intake. Continue Blue 1 pkt BID for wound healing. to continue bringing premier protein for res while on TCU. Will provide additional nutrition education as warranted by pt prior to discharge. Weight / BMI Weight Weight: 77.819 kg Body Mass Index (BMI) 30.9 ABG / Lab / Microbiology Data Result Diagrams: 01/05/21 05:27 01/05/21 05:27 Laboratory: Laboratory Results - last 24 hr 01/10/21 17:10: POC Glucose 266 H 01/10/21 19:15: POC Glucose 397 H 01/11/21 05:30: Total Bilirubin 0.20, Direct Bilirubin 0.09, AST 33, ALT 32, Alkaline Phosphatase 81, Total Protein 6.7, Albumin 2.4 L, Globulin 4.3 H, Triglycerides 133, Cholesterol 125, LDL Cholesterol 59, VLDL Cholesterol 27, HDL Cholesterol 39 L 01/11/21 08:59: POC Glucose 96 01/11/21 11:01: POC Glucose 178 H Microbiology: Microbiology 01/04/21 14:45 Mucosa - Nasopharyngeal SARS-CoV-2 Antigen (Rapid) - Final 12/26/20 18:50 Blood Culture (Wb) - Left Wrist Blood Culture - Final No growth in 5 days. 12/26/20 19:05 Blood Culture (Wb) - Left Hand Blood Culture - Final No growth in 5 days. 12/26/20 21:31 Mucosa - Nasopharyngeal Respiratory Panel (PCR) - Final D/C Instructions Discharge Diet: No restrictions Discharge Activity: Return to Normal Activity, May Shower and Use Walker Weight Bearing Status: No weight bearing (Left lower extremity.) Call your doctor if you observe: Fever of 101 or Higher, Inability to urinate, Inability to have a bowel movement, Shortness of breath, Dizziness, Fainting spells, Swelling in the ankles, Chest pain and Uncontrolled pain Additional Instructions: Discharge home with 01/11/2021, No services. Please Follow Up With: [facility] Meaningful Use Info Meaningful Use Diagnoses (Choose all that apply): None applicable Discharge Plan Admission Admit Date/Time: 12/14/20 22:40 Primary Reason for Your Visit: Debility Attending Provider: Adolfo Rush Chi Primary Care Provider: Con Johnson Consulting Providers: Ivanna Magana ; Adam Webb Instructions Additional Instructions / Restrictions: Wash foot with soap and water and do not soak. Maintain a strict nonweightbearing status at all times to the left lower extremity. To use assistive device. To change left foot amputation dressing once weekly with dry gauze, abdominal pad, Kerlix and Arjun wrap. Follow-up with the [facility] within 1 week of discharge. Discharge Orders/Prescriptions Prescriptions: Continued Creon 24,000-76,000 -120,000 unit capsule,delayed release(DR/EC) 1 cap PO BID RF: 0 cbd 1 dose PO 4X/DAY PRN PRN (Reason: pain/1500) RF: 0 aspirin [Adult Low Dose Aspirin] 81 mg tablet,delayed release (DR/EC) 81 mg PO DAILY RF: 0 pravastatin 40 MG tablet 40 mg PO QHS RF: 0 allopurinol 100 MG tablet 100 mg PO DAILY RF: 0 calcium citrate 200 MG tablet 200 mg PO BID Qty: 0 RF: 0 levothyroxine 75 MCG tablet 75 mcg PO QHS RF: 0 venlafaxine 100 MG tablet 100 mg PO BID RF: 0 trazodone 100 MG tablet 100 mg PO QHS PRN PRN (Reason: Sleep) RF: 0 metoclopramide HCl 10 MG tablet 10 mg PO Q8H PRN PRN (Reason: Nausea) RF: 0 hpnvbtlheobm-gfed-cpdon acid 1 EACH tablet 0.5 tablet PO BID RF: 0 linaclotide 72 MCG capsule 72 mcg PO DAILY RF: 0 carvedilol 25 MG tablet 25 mg PO BID RF: 0 insulin lispro 100 UNIT/ML insulin pen 6 - 8 unit subcut BID RF: 0 acetaminophen 500 MG tablet 1,000 mg PO Q8H PRN PRN (Reason: Pain Score 1-3) Qty: 0 RF: 0 tizanidine 4 MG tablet 4 mg PO Q8H PRN PRN (Reason: Muscle Spasm) Qty: 20 RF: 0 nitroglycerin 0.4 MG bottle 0.4 mg SL TID PRN PRN (Reason: chest pain) RF: 0 morphine 10 MG/5 ML solution 3 ml PO Q6H PRN PRN (Reason: Pain) RF: 0 polyethylene glycol 3350 17 GM packet 17 gm PO DAILY RF: 0 sennosides-docusate sodium 1 TABLET tablet 1 tablet PO QHS RF: 0 ebgon-gwtr-EyBXW-muwzfu-vj-dyz 1 PACKET packet 1 packet PO BIDCM RF: 0 isosorbide mononitrate 60 mg tablet extended release 24 hr 60 mg PO DAILY RF: 0 isosorbide mononitrate 60 mg tablet extended release 24 hr 120 mg PO QHS RF: 0 esomeprazole magnesium 20 mg capsule,delayed release(DR/EC) 20 mg PO BID RF: 0 fexofenadine 180 mg Tablet 180 mg PO DAILY RF: 0 guaifenesin [Mucus Relief ER] 600 mg tablet extended release 12hr 600 mg PO DAILY RF: 0 oxycodone 5 mg Tablet 5 mg PO Q6H PRN PRN (Reason: Pain Score 6-10) Qty: 0 RF: 0 lisinopril 20 mg tablet 20 mg PO BID RF: 0 meropenem 1 gram recon soln 1 g IV Q8H RF: 0 Lantus Solostar U-100 Insulin 100 unit/mL (3 mL) insulin pen 25 unit subcut BID RF: 0 clopidogrel 75 mg tablet 75 mg PO DAILY Qty: 90 RF: 3 amlodipine 5 mg tablet 5 mg PO BID Qty: 180 RF: 3 Referrals / Follow Up: Con Johnson MD [Primary Care Provider] - Ivanna Magana DPM [STAFF PHYSICIAN] - In 1 Week (Follow-up at the [facility] with Dr. Magana; call [phone].) Disposition Disposition (needs filled in before D/C Order can be placed): Home, Self Care
[2021-01-11] MEDS: oxyCODONE 5 MG Tablet PO (15:11)
[2021-01-11 16:00] VITALS: BP 99/59; PULSE 90; RESP 18; TEMP 36.7; O2SAT 97
[2021-01-11 16:57] VITALS: BP 145/75; PULSE 79
== END 2021-01-11 17:30 | disposition home or self-care (01) | DRG 559 ==
PROVIDERS: Nurse Practitioner Family; Admitting Provider Family Medicine Geriatric Medicine; PCP Family Medicine; Visit Provider Family Medicine Geriatric Medicine
DX: Z47.81 Encounter for orthopedic aftercare following surgical amputation (principal); J18.9 Pneumonia, unspecified organism; F11.20 Opioid dependence, uncomplicated; M86.672 Other chronic osteomyelitis, left ankle and foot; L02.612 Cutaneous abscess of left foot; E11.42 Type 2 diabetes mellitus with diabetic polyneuropathy; I25.10 Atherosclerotic heart disease of native coronary artery without angina pectoris; K21.9 Gastro-esophageal reflux disease without esophagitis; E78.5 Hyperlipidemia, unspecified; M10.9 Gout, unspecified; Z89.432 Acquired absence of left foot; I25.2 Old myocardial infarction; I11.0 Hypertensive heart disease with heart failure; I50.9 Heart failure, unspecified; E03.9 Hypothyroidism, unspecified; E66.9 Obesity, unspecified; M06.9 Rheumatoid arthritis, unspecified; E11.51 Type 2 diabetes mellitus with diabetic peripheral angiopathy without gangrene; E11.69 Type 2 diabetes mellitus with other specified complication; M19.90 Unspecified osteoarthritis, unspecified site; E11.610 Type 2 diabetes mellitus with diabetic neuropathic arthropathy; F32.9 Major depressive disorder, single episode, unspecified; B37.3 Candidiasis of vulva and vagina; Z79.899 Other long term (current) drug therapy; Z79.4 Long term (current) use of insulin; Z79.02 Long term (current) use of antithrombotics/antiplatelets; B96.89 Other specified bacterial agents as the cause of diseases classified elsewhere; B95.5 Unspecified streptococcus as the cause of diseases classified elsewhere
CPT/HCPCS: 36415; 71045; 71046; 74018; 80048; 80061; 80076; 81001; 82962; 85025; 87040; 87426; 87633; 87635; 97110; 97116; 97162; 97166; 97530; 97535; 97802; J2185; J7030; J7050; U0005; A4216; U0003

== ENCOUNTER → 2021-01-17 13:38 | Outpatient (CLI) | payer MEDICARE, OTHER, SELFPAY ==
[2021-01-17 15:12] LABS: Absolute Lymphocyte Count 2.73 X10^3/uL (0.83-4.51); Absolute Neutrophil Count 5.6 X10^3/uL (2.0-7.7); Basophil# 0.08 X10^3/uL; Basophil% 0.8 % (0-1); Eosinophil# 0.49 X10^3/uL; Eosinophils% 5.1 % (0-5); Hematocrit 33.4 % (37-47); Hemoglobin 10.2 g/dL (12.0-15.0); Lymphocyte # 2.73 X10^3/ul (0.83-4.51); Lymphocyte % 28.2 % (19-41); Mean Corp Hgb Conc 30.5 g/dL (32-36); Mean Platelet Vol. 9.3 fl (6.2-12.0); Monocyte# 0.71 X10^3/uL; Monocyte% 7.3 % (0-10); NRBC Flagged by Analyzer 0 % (0-5); Neutrophil # 5.63 X10^3/uL (2.7-7.7); Neutrophil % 58.1 % (47-70); Platelet Count 350 K/mm3 (150-450); RBC Distribution Width SD 49.2 fl (35.1-43.9); Red Blood Count 3.93 M/mm3 (4.2-5.4); White Blood Count 9.7 K/mm3 (4.4-11.0)
[2021-01-17 16:41] LABS: ALB/GLOB Ratio 0.7 RATIO (0.9-2.4); AST(SGOT) 20 U/L (15-37); Alanine Aminotransfer ALT/SGPT 35 U/L (13-56); Alkaline Phosphatase 90 U/L (45-117); Anion Gap 6 (5-15); BUN 40 mg/dL (7-18); BUN/Creat Ratio 29.6 RATIO (10-20); Calcium,Total 8.5 mg/dL (8.5-10.1); Chloride 107 mmol/L (98-107); Creatinine, Serum 1.35 mg/dL (0.55-1.02); EST Glomerular Filtration Rate 41 mL/min (>60); Est Glom Filt Rate - Afr Amer 49 mL/min (>60); Folates, (Folic Acid) > 100.00 ng/mL (3.1-55.4); Globulin 4.2 g/dL (2.2-4.2); Glucose 193 mg/dL (74-106); Potassium 6.3 mmol/L (3.5-5.1); Protein, Total 7.2 g/dL (6.4-8.2); Sodium Level 133 mmol/L (136-145)
== END ==
PROVIDERS: PCP Family Medicine; Referring Provider Family Medicine; Visit Provider Family Medicine
DX: E11.39 Type 2 diabetes mellitus with other diabetic ophthalmic complication (principal); E53.8 Deficiency of other specified B group vitamins
CPT/HCPCS: 36415; 80053; 82746; 85025

== ENCOUNTER → 2021-01-18 13:31 | Outpatient (CLI) | payer MEDICARE, OTHER, SELFPAY ==
[2021-01-18 14:37] LABS: Anion Gap 6 (5-15); BUN 40 mg/dL (7-18); BUN/Creat Ratio 29.9 RATIO (10-20); Calcium,Total 8.3 mg/dL (8.5-10.1); Chloride 108 mmol/L (98-107); Creatinine, Serum 1.34 mg/dL (0.55-1.02); EST Glomerular Filtration Rate 41 mL/min (>60); Est Glom Filt Rate - Afr Amer 50 mL/min (>60); Glucose 169 mg/dL (74-106); Potassium 5.7 mmol/L (3.5-5.1); Sodium Level 135 mmol/L (136-145)
== END ==
PROVIDERS: PCP Family Medicine; Visit Provider Family Medicine
DX: E87.5 Hyperkalemia (principal)
CPT/HCPCS: 36415; 80048; 83735

== ENCOUNTER → 2021-01-24 16:38 | Outpatient (CLI) | payer MEDICARE, OTHER, SELFPAY ==
[2021-01-24 17:28] LABS: Anion Gap 4 (5-15); BUN 24 mg/dL (7-18); BUN/Creat Ratio 19.5 RATIO (10-20); Calcium,Total 9.1 mg/dL (8.5-10.1); Chloride 108 mmol/L (98-107); Creatinine, Serum 1.23 mg/dL (0.55-1.02); EST Glomerular Filtration Rate 45 mL/min (>60); Est Glom Filt Rate - Afr Amer 55 mL/min (>60); Glucose 95 mg/dL (74-106); Potassium 5.2 mmol/L (3.5-5.1); Sodium Level 138 mmol/L (136-145)
== END ==
PROVIDERS: PCP Family Medicine; Referring Provider Family Medicine; Visit Provider Family Medicine
DX: E11.22 Type 2 diabetes mellitus with diabetic chronic kidney disease (principal); N18.9 Chronic kidney disease, unspecified
CPT/HCPCS: 36415; 80048

== ENCOUNTER → 2021-02-16 11:38 | Outpatient (CLI) | payer MEDICARE, OTHER, SELFPAY ==
[2021-02-16 13:06] LABS: AST(SGOT) 15 U/L (15-37); Alanine Aminotransfer ALT/SGPT 23 U/L (13-56); Albumin, Serum 2.8 g/dL (3.2-5.0); Alkaline Phosphatase 116 U/L (45-117); Anion Gap 4 (5-15); BUN 36 mg/dL (7-18); BUN/Creat Ratio 29.8 RATIO (10-20); Bilirubin, Direct 0.07 mg/dL (0.00-0.30); Calcium,Total 8.2 mg/dL (8.5-10.1); Chloride 116 mmol/L (98-107); Cholesterol 141 mg/dL (200); Creatinine, Serum 1.21 mg/dL (0.55-1.02); EST Glomerular Filtration Rate 46 mL/min (>60); Est Glom Filt Rate - Afr Amer 56 mL/min (>60); Globulin 3.9 g/dL (2.2-4.2); Glucose 192 mg/dL (74-106); High Density Lipoprotein 45 mg/dL; Potassium 3.8 mmol/L (3.5-5.1); Protein, Total 6.7 g/dL (6.4-8.2); Sodium Level 139 mmol/L (136-145); Triglycerides 220 mg/dL; Very Low Density Lipoprotein 44 mg/dL (5-40)
== END ==
PROVIDERS: Nurse Practitioner Family; PCP Family Medicine; Referring Provider Family Medicine; Visit Provider Family Medicine
DX: E87.5 Hyperkalemia (principal); E78.5 Hyperlipidemia, unspecified
CPT/HCPCS: 36415; 80048; 80061; 80076

== ENCOUNTER → 2021-02-27 10:08 | Outpatient (CLI) | payer MEDICARE, OTHER, SELFPAY ==
[2020-10-26 10:48] VITALS: BMI 29.6
--- NOTE | 2021-02-27 10:11 | ART_ITS ---
Reason For Study: Stricture of artery Procedure A bilateral lower extremity continuous wave Doppler with analog waveform analysis and ankle brachial indexes. Left Segmental Pressures Left brachial= 143mmHg. Left posterior tibial artery = 67mmHg. Left dorsalis pedis artery = 153mmHg. The left dorsalis pedis waveforms are biphasic. The left posterior tibial artery waveforms are biphasic. Right Segmental Pressures Right brachial= 139mmHg. Right posterior tibial artery = 142mmHg. Right dorsalis pedis artery = 164mmHg. The right dorsalis pedis waveforms are biphasic. The right posterior tibial artery waveforms are triphasic. Indices The right ankle brachial index by the dorsalis pedis is 1.15. The right ankle brachial index by the posterior tibial artery is 0.99. The left ankle brachial index by the dorsalis pedis is 1.07. The left ankle brachial index by the posterior tibial artery is 0.47. VL/Ankle Brachial Index Interpretation Summary Right lower extremity with no evidence of significant occlusive disease at rest with an JOSE E of 1.15 and triphasic flow. Left lower extremity with biphasic flow and an JOSE E 1.07. Ordering Physician: Aman Pang Referring Physician: Con Johnson MD Performed By: Shabnam Orellana RVT
--- NOTE | 2021-02-27 10:11 | ADUL_ITS ---
Reason For Study: Stricture of artery Left Velocities Ext Iliac Artery, dist = 172.5 cm./sec. Common Femoral Artery, mid = 122 cm./sec. SFA Origin, 100.1 cm/sec. Supf. Femoral Artery, prox = 244.3 cm./sec. Supf. Femoral Artery, mid = 157 cm./sec. Supf. Femoral Artery, dist = 78.1 cm./sec. Profunda Femoral Artery = 108.9 cm./sec. Popliteal Artery, mid = 75.9 cm./sec. Post. Tibial Artery, prox = 18.5 cm./sec. [employer] mid-distal, No Flow. Peroneal Artery, prox = 28.9 cm./sec. Peroneal Artery, mid = 59.1 cm./sec. Peroneal Artery,dist. = 25.1 cm./sec. Ant.Tibial Artery, prox = 118 cm./sec. Ant Tibial Artery, mid = 112.5 cm./sec. Ant. Tibial Artery, distal = 139.8 cm./sec. Procedure Exam performed in department. VL/US Art Duplex Unilat Lower Ext Interpretation Summary Left lower extremity with normal triphasic flow through the popliteal artery wi th mild stenosis of the proximal femoral artery. Posterior tibial artery occluded distally. Biphasi c flow with slight elevated velocities noted through the anterior tibial artery. More of a monopha sic flow throughout the peroneal artery. Ordering Physician: Aman Pang Referring Physician: Con Johnson MD Performed By: Shabnam Orellana RVT
== END ==
PROVIDERS: PCP Family Medicine; Referring Provider Surgery Vascular Surgery; Visit Provider Surgery Vascular Surgery
DX: I77.1 Stricture of artery (principal); I70.213 Atherosclerosis of native arteries of extremities with intermittent claudication, bilateral legs; G45.8 Other transient cerebral ischemic attacks and related syndromes; I25.10 Atherosclerotic heart disease of native coronary artery without angina pectoris; E11.9 Type 2 diabetes mellitus without complications; I10 Essential (primary) hypertension; E78.00 Pure hypercholesterolemia, unspecified; D64.9 Anemia, unspecified; Z86.718 Personal history of other venous thrombosis and embolism
CPT/HCPCS: 93922; 93926

== ENCOUNTER → 2021-03-09 12:16 | Outpatient (CLI) | payer MEDICARE, OTHER, SELFPAY ==
[2021-03-09 14:53] LABS: Absolute Lymphocyte Count 2.67 X10^3/uL (0.83-4.51); Absolute Neutrophil Count 4.5 X10^3/uL (2.0-7.7); Basophil# 0.03 X10^3/uL; Basophil% 0.4 % (0-1); Eosinophil# 0.21 X10^3/uL; Eosinophils% 2.6 % (0-5); Hemoglobin 10.6 g/dL (12.0-15.0); Lymphocyte # 2.67 X10^3/ul (0.83-4.51); Lymphocyte % 33.1 % (19-41); Mean Corp Hgb Conc 29.4 g/dL (32-36); Mean Corpuscular Hgb 24.1 pg (27.0-32.0); Mean Corpuscular Volume 81.8 fL (81-99); Mean Platelet Vol. 10.1 fl (6.2-12.0); Monocyte% 7.4 % (0-10); NRBC Flagged by Analyzer 0 % (0-5); Neutrophil # 4.53 X10^3/uL (2.7-7.7); Neutrophil % 56.1 % (47-70); Platelet Count 286 K/mm3 (150-450); RBC Distribution Width CV 17.4 % (11.6-14.6); RBC Distribution Width SD 51.5 fl (35.1-43.9); White Blood Count 8.1 K/mm3 (4.4-11.0)
[2021-03-09 15:06] LABS: PTHIN 79.1 pg/mL (18.4-80.1)
[2021-03-09 15:08] LABS: ALB/GLOB Ratio 0.8 RATIO (0.9-2.4); AST(SGOT) 18 U/L (15-37); Alanine Aminotransfer ALT/SGPT 35 U/L (13-56); Albumin, Serum 3.2 g/dL (3.2-5.0); Alkaline Phosphatase 128 U/L (45-117); Anion Gap 8 (5-15); BUN 33 mg/dL (7-18); BUN/Creat Ratio 25.8 RATIO (10-20); Calcium,Total 8.6 mg/dL (8.5-10.1); Chloride 115 mmol/L (98-107); Creatinine, Serum 1.28 mg/dL (0.55-1.02); EST Glomerular Filtration Rate 43 mL/min (>60); Est Glom Filt Rate - Afr Amer 53 mL/min (>60); Glucose 125 mg/dL (74-106); Potassium 4.6 mmol/L (3.5-5.1); Protein, Total 7.2 g/dL (6.4-8.2); Sodium Level 141 mmol/L (136-145)
[2021-03-09 15:10] LABS: Vitamin D,25 Hydroxy 25.6 ng/mL
== END ==
PROVIDERS: PCP Family Medicine; Referring Provider Family Medicine; Visit Provider Family Medicine
DX: E11.22 Type 2 diabetes mellitus with diabetic chronic kidney disease (principal); N18.2 Chronic kidney disease, stage 2 (mild); N39.0 Urinary tract infection, site not specified; M81.0 Age-related osteoporosis without current pathological fracture; Z79.4 Long term (current) use of insulin
CPT/HCPCS: 36415; 80053; 82306; 83036; 83970; 85025; 87086; 87088

== ENCOUNTER 2021-07-28 15:31 | Emergency (ER) | payer MEDICARE, OTHER, SELFPAY ==
[2021-07-28 15:32] VITALS: BP 181/70; PULSE 77; RESP 16; TEMP 36.1; O2SAT 97; BMI 30.5
--- NOTE | 2021-07-28 16:14 | EX.ED.DYSGE1 ---
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 Patient does have an established wrapper selector who told her to the go to the emergency department for evaluation. Patient denies any fevers or chills. Patient states that it does feel sore when she walks on it, however 2 days ago she saw a black jenny and is here for evaluation concerning for abscess. [facility] Medical History (Updated 07/28/21 @ 16:58 by CLIFFORD Abraham) Acute hyperkalemia Amput foot, unilat-complicated Anemia Anxiety Atherosclerotic heart disease of [place] coronary artery without angina pectoris Carotid artery disease Carpal tunnel syndrome Charcot's joint of left foot Chest pain Congestive heart failure (CHF) Coronary artery disease CPAP (continuous positive airway pressure) dependence Diabetes Diabetes mellitus type 2 in obese DVT (deep venous thrombosis) Equinus contracture of left ankle Essential hypertension GERD (gastroesophageal reflux disease) GI bleed Gout History of blood clots History of blood transfusion History of CVA (cerebrovascular accident) Hyperlipidemia Hypertension Hypothyroidism Hypothyroidism IBS (irritable bowel syndrome) Iron deficiency anemia Kidney stones Migraines Myocardial infarct Neuropathy 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 evidence of necrosis Non-smoker Obesity Osteoporosis Peripheral arterial occlusive disease Peripheral vascular disease Rheumatoid arthritis Sleep apnea Type 2 diabetes mellitus with diabetic polyneuropathy Type 2 diabetes mellitus with diabetic polyneuropathy Type 2 diabetes mellitus with foot ulcer Ulcer of abdomen wall with fat layer exposed Ulcer of left foot with fat layer exposed Vitamin D deficiency Home Medications pravastatin 40 mg PO QHS 03/10/17 [History Last Taken 12/07/20] allopurinol 100 mg PO DAILY 03/17/20 [History Last Taken 12/08/20] calcium citrate 200 mg PO BID #0 03/17/20 [Rx Last Taken 12/08/20] aspirin 81 mg tablet,delayed release 81 mg PO DAILY 04/05/20 [History Last Taken 12/07/20] cbd 1 dose PO 4X/DAY PRN PRN 04/05/20 [History Last Taken 12/08/20] slewry-spzgknai-koenjrn 24,000-76,000-120,000 unit capsule,delayed rel 1 cap PO BID cap 04/05/20 [History Last Taken 12/08/20] carvedilol 25 mg PO BID 08/17/20 [History Last Taken 12/08/20] levothyroxine 75 mcg PO QHS 08/17/20 [History Last Taken 12/07/20] linaclotide 72 mcg PO DAILY 08/17/20 [History Last Taken 11/21/20] metoclopramide HCl 10 mg PO Q8H PRN PRN 08/17/20 [History Last Taken 12/07/20] wovxelphlllv-npsi-yeudf acid 0.5 tablet PO BID 08/17/20 [History Last Taken 12/08/20] trazodone 100 mg PO QHS PRN PRN 08/17/20 [History Last Taken 12/07/20] venlafaxine 100 mg PO BID 08/17/20 [History Last Taken 12/08/20] insulin lispro 6 - 8 unit SUBCUT BID 08/22/20 [History Last Taken 12/08/20] acetaminophen 1,000 mg PO Q8H PRN PRN #0 tablet 09/09/20 [Rx Last Taken 12/08/20] tizanidine 4 mg PO Q8H PRN PRN #20 tablet 09/09/20 [Rx Last Taken 12/07/20] clopidogrel 75 mg tablet 75 mg PO DAILY #90 tablet 09/16/20 [Rx Last Taken 12/08/20] euiuf-xzbc-RmCAI-ikottm-oa-lux 1 packet PO BIDCM 09/19/20 [History Last Taken 12/08/20] morphine 3 ml PO Q6H PRN PRN 09/19/20 [History Last Taken 12/07/20] nitroglycerin 0.4 mg SL TID PRN PRN 09/19/20 [History Last Taken 1 Week Ago ~12/01/20] polyethylene glycol 3350 17 gm PO DAILY 09/19/20 [History Last Taken 12/08/20] sennosides-docusate sodium 1 tablet PO QHS 09/19/20 [History Last Taken 12/07/20] amlodipine 5 mg tablet 5 mg PO BID #180 tab 11/09/20 [Rx Last Taken 12/08/20] esomeprazole magnesium 20 mg PO BID 12/08/20 [History Last Taken 12/08/20] fexofenadine 180 mg PO DAILY 12/08/20 [History Last Taken 12/08/20] guaifenesin [Mucus Relief ER] 600 mg PO DAILY 12/08/20 [History Last Taken 12/08/20] isosorbide mononitrate 60 mg PO DAILY 12/08/20 [History Last Taken 12/08/20] isosorbide mononitrate 120 mg PO QHS 12/08/20 [History Last Taken 12/07/20] Lantus Solostar U-100 Insulin 25 unit SUBCUT BID 12/14/20 [History Last Taken Unknown] meropenem 1 g IV Q8H 12/14/20 [History Last Taken Unknown] oxycodone 5 mg PO Q6H PRN PRN #0 tab 12/14/20 [Rx Last Taken Unknown] benzonatate [Tessalon Perles] 100 mg PO TID PRN #90 cap 01/11/21 [Rx Last Taken Unknown] oxycodone 5 mg PO Q6H PRN PRN 7 Days #28 tab 01/11/21 [Rx Last Taken Unknown] sodium polystyrene sulfonate 15 gram/60 mL oral suspension 15 g PO DAILY 01/31/21 [History Last Taken Unknown] lisinopril 5 mg tablet 5 mg PO QDAY #30 tab 02/22/21 [Rx Last Taken Unknown] amoxicillin-pot clavulanate 1 tab PO BID 10 Days #20 tab 07/28/21 [Rx Last Taken Unknown] Allergy/AdvReac Type Severity Reaction Status Date / Time doxycycline Allergy Severe all over Verified 07/28/21 15:49 body hives and itching atorvastatin calcium Allergy Unknown Verified 07/28/21 15:49 [From Lipitor] bupropion HCl Allergy Unknown Verified 07/28/21 15:49 [From Wellbutrin] mannitol [From Reclast] Allergy joint Verified 07/28/21 15:49 pain, unable to breathe, unable to walk propoxyphene napsylate Allergy Unknown Verified 07/28/21 15:49 [From Darvocet-N 100] Quinolones Allergy Unknown Verified 07/28/21 15:49 Tetanus Vaccines and Toxoid Allergy Chest Verified 07/28/21 15:49 [Tetanus Vaccines & Toxoid] tightness tizanidine Allergy Unknown Verified 07/28/21 15:49 zoledronic acid Allergy joint Verified 07/28/21 15:49 [From Reclast] pain,unable to breathe, unaable to walk pravastatin AdvReac Severe Myalgias Verified 07/28/21 15:49 gemfibrozil AdvReac Intermediate Unknown Verified 07/28/21 15:49 NSAIDS (Non-Steroidal AdvReac Other Verified 07/28/21 15:49 Anti-Inflamma Family History (Reviewed 01/31/21 @ 11:48 by Lars Wahl REELING MACHINE SETUP OPERATOR, REELING MACHINE SETUP OPERATOR-C) Mother , age 75 Cancer CVA (cerebral vascular accident) CAD (coronary artery disease) Father CAD (coronary artery disease) History of coronary artery bypass graft Sister CAD (coronary artery disease) Multiple sclerosis Other Anxiety Bleeding disorder Depression Diabetes Heart disease High cholesterol Hypertension Surgical History History of appendectomy History of cholecystectomy History of [place] amputation of left foot History of coronary artery bypass graft History of coronary artery stent placement History of excision of lesion History of gastric bypass History of gastric bypass History of left heart catheterization History of ventral hernia repair Hx of CABG Hx of ventral hernia repair Stented coronary artery (12/03/18) Social History (Reviewed 01/31/21 @ 11:48 by Lars Wahl REELING MACHINE SETUP OPERATOR, REELING MACHINE SETUP OPERATOR-C) Smoking Status: Never smoker alcohol intake: never substance use type: does not use caffeine: Yes Type: coffee what type of physical activity do you participate in: none seatbelt use: sometimes do you feel safe at home: Yes additional social history: DOES NOT TAKE ASPIRIN DOES TAKE IBUPROFEN NEEDED ROS ROS ED ROS Narrative Constitutional: Negative for fever, chills, weight loss or gain, weakness Eyes: Negative for vision loss, vision change, double vision ENT: Negative for any hearing changes, ringing in the ears, dizziness, discharge, pain Nose: Negative for any congestion, runny nose, sinus pain, allergies Throat: Negative for any sore throat hoarseness, voice changes, Cardiovascular: Negative for any chest pain, tightness, palpitations, racing heartbeat Respiratory: Negative for any coughs, sputum production, coughing, hemoptysis, shortness of breath, shortness of breath on exertion, Gastrointestinal: Negative for any abdominal pain, nausea, vomiting, diarrhea, constipation, blood in stool, blood in vomit : Negative for any urinary frequency, incontinence, dysuria, retention, blood in urine Muscle skeletal: Negative for any muscle joint pain, stiffness, myalgias, arthralgias, neck pain, back pain. Positive for left foot pain Neurological: Negative for any headache, head injury, dizziness, syncope, numbness or tingling Skin: Negative for any rashes, itching, abrasions, lacerations. Positive for swelling, black scab to the bottom of the left foot stump Psychiatric: Negative for any depression, anxiety, stress, suicidal ideation, homicidal ideation Hematologic: Negative for any easy bruising, excessive bruising, easy bleeding Allergies: Negative for any eczema, hives, rash EXAM Physical Exam Const Vital Signs: 07/28/21 15:32 Temperature 96.9 F L Temperature Source Temporal Pulse Rate 77 Respiratory Rate 16 Blood Pressure 181/70 H Blood Pressure Mean 107 Pulse Ox 97 Oxygen Delivery Method Room Air Positive well nourished and well developed General Appearance ED: well developed HEENT Reports moist mucous membranes Eyes PERRL and EOMs intact bilaterally Neck no lymphadenopathy and supple Chest Wall inspection of chest normal and palpation of chest normal Resp normal respiratory effort and clear to auscultation bilaterally Cardio regular rate and regular rhythm Extremity Extremity Narrative: Patient does have bilateral feet amputation. Patient has no toes on the right foot, patient's left foot is a stump. On the bottom the stump there is a scab lesion, appearing black, there is slight warmness however negative for any erythema, fluctuance, pain on palpation. There is no drainage noted. Patient does feel on palpation. Neuro oriented x3 and CN's II-XII intact bilaterally Sensorium / Orientation: alert Psych mental status grossly normal Skin skin turgor normal Skin Narrative: Wound to the stump of the left foot MDM MDM MDM Narrative Medical decision making narrative: Patient appears well, patient appears nontoxic, vital signs are stable. Patient presents to the emergency department with complaints of a lesion to the left stump of her foot, as well as pain with walking. Patient did call her wrapper selector, and wanted her here for evaluation. Patient did receive an x-ray, this did show soft tissue swelling, possibly anterior calcaneal sclerosis which could represent early osteomyelitis although alejandro bony destruction is not seen, at this time, I did speak with the patient's wrapper selector, we came into agreement to start the patient on Augmentin, the patient will follow closely on Saturday of this upcoming week which is 2 days. At this time, patient looks well, patient shows no signs or symptoms of any infection, patient is comfortable with the plan and will follow up outpatient. Patient given strict return precautions to return for any worsening pain to her left foot stump, patient stable for discharge Lab Data Attestation: I reviewed the patient's lab results. Radiography Diagnostic Testing: Clinical Impression(s) from Imaging Studies Foot X-Ray 07/28/21 16:15 IMPRESSION: 1. Previous amputation. 2. Soft tissue swelling. 3. Anterior calcaneal sclerosis could represent early osteomyelitis although alejandro bony destruction not seen. Electronically Signed: Ralph Coates MD ([place]) at 16:38 EST Reading Location ID and State: [place] , Service support , Discharge Plan Triage Chief Complaint: Abscess ED Provider: Master Resendiz Dx/Rx/DC Orders Clinical Impression: Abscess, Wound abscess Instructions: Abscess Drainage, ED Cellulitis Prescriptions: New amoxicillin-pot clavulanate 875-125 mg tablet 1 tab PO BID 10 Days Qty: 20 RF: 0 No Action Creon 24,000-76,000 -120,000 unit capsule,delayed release(DR/EC) 1 cap PO BID RF: 0 cbd 1 dose PO 4X/DAY PRN PRN (Reason: pain/1500) RF: 0 aspirin [Adult Low Dose Aspirin] 81 mg tablet,delayed release (DR/EC) 81 mg PO DAILY RF: 0 sodium polystyrene sulfonate 15 gram/60 mL suspension 15 g PO DAILY RF: 0 pravastatin 40 MG tablet 40 mg PO QHS RF: 0 allopurinol 100 MG tablet 100 mg PO DAILY RF: 0 calcium citrate 200 MG tablet 200 mg PO BID Qty: 0 RF: 0 levothyroxine 75 MCG tablet 75 mcg PO QHS RF: 0 venlafaxine 100 MG tablet 100 mg PO BID RF: 0 trazodone 100 MG tablet 100 mg PO QHS PRN PRN (Reason: Sleep) RF: 0 metoclopramide HCl 10 MG tablet 10 mg PO Q8H PRN PRN (Reason: Nausea) RF: 0 nqycjcwuvbjq-obme-qonzw acid 1 EACH tablet 0.5 tablet PO BID RF: 0 linaclotide 72 MCG capsule 72 mcg PO DAILY RF: 0 carvedilol 25 MG tablet 25 mg PO BID RF: 0 insulin lispro 100 UNIT/ML insulin pen 6 - 8 unit subcut BID RF: 0 acetaminophen 500 MG tablet 1,000 mg PO Q8H PRN PRN (Reason: Pain Score 1-3) Qty: 0 RF: 0 tizanidine 4 MG tablet 4 mg PO Q8H PRN PRN (Reason: Muscle Spasm) Qty: 20 RF: 0 nitroglycerin 0.4 MG bottle 0.4 mg SL TID PRN PRN (Reason: chest pain) RF: 0 morphine 10 MG/5 ML solution 3 ml PO Q6H PRN PRN (Reason: Pain) RF: 0 polyethylene glycol 3350 17 GM packet 17 gm PO DAILY RF: 0 sennosides-docusate sodium 1 TABLET tablet 1 tablet PO QHS RF: 0 dvezr-zfag-CyPEL-awyefq-gp-xad 1 PACKET packet 1 packet PO BIDCM RF: 0 isosorbide mononitrate 60 mg tablet extended release 24 hr 60 mg PO DAILY RF: 0 isosorbide mononitrate 60 mg tablet extended release 24 hr 120 mg PO QHS RF: 0 esomeprazole magnesium 20 mg capsule,delayed release(DR/EC) 20 mg PO BID RF: 0 fexofenadine 180 mg Tablet 180 mg PO DAILY RF: 0 guaifenesin [Mucus Relief ER] 600 mg tablet extended release 12hr 600 mg PO DAILY RF: 0 oxycodone 5 mg Tablet 5 mg PO Q6H PRN PRN (Reason: Pain Score 6-10) Qty: 0 RF: 0 meropenem 1 gram recon soln 1 g IV Q8H RF: 0 Lantus Solostar U-100 Insulin 100 unit/mL (3 mL) insulin pen 25 unit subcut BID RF: 0 benzonatate [Tessalon Perles] 100 mg capsule 100 mg PO TID PRN (Reason: cough) Qty: 90 RF: 0 oxycodone 5 mg Tablet 5 mg PO Q6H PRN PRN (Reason: Pain Score 6-10) 7 Days Qty: 28 RF: 0 clopidogrel 75 mg tablet 75 mg PO DAILY Qty: 90 RF: 3 amlodipine 5 mg tablet 5 mg PO BID Qty: 180 RF: 3 lisinopril 5 mg tablet 5 mg PO QDAY Qty: 30 RF: 12 Primary Care Provider: Con Johnson Referrals: Con Johnson MD [Primary Care Provider] - Nicholas Espino DPM [STAFF PHYSICIAN] - Activity Restrictions/Additional Instructions: Please follow-up closely with your wrapper selector, you will see him on Saturday. Please take all antibiotics Disposition Disposition: Home, Self Care
--- NOTE | 2021-07-28 16:15 | RAD_ITS ---
STUDY: X-RAY - LEFT FOOT CLINICAL: Female, 76 years old. Abscess, previous amputation TECHNIQUE: 2 view(s) of the foot. COMPARISON: 12/09/2020, 12/13/2020 FINDINGS: Proximal foot amputation noted. There is soft tissue swelling of the soft tissues. Mild sclerosis of the anterior calcaneus is new since 12/09/2020 although no alejandro cortical erosion or destructive bony process seen. Calcaneal spur and enthesophyte present. Arterial vascular calcifications. RAD/Foot min 3 Views IMPRESSION: 1. Previous amputation. 2. Soft tissue swelling. 3. Anterior calcaneal sclerosis could represent early osteomyelitis although alejandro bony destruction not seen. Electronically Signed: Ralph Coates MD ([place]) at 16:38 EST Reading Location ID and State: / [place] , Service support ,
[2021-07-28 17:14] VITALS: PULSE 78; RESP 17; O2SAT 98
[2021-07-28] MEDS: Amox/Clavulanate 875 MG Tablet PO (17:14)
== END 2021-07-28 17:16 | disposition home or self-care (01) ==
PROVIDERS: Emergency Provider Nurse Practitioner; PCP Family Medicine; Visit Provider Nurse Practitioner
DX: T87.89 Other complications of amputation stump (principal); E11.51 Type 2 diabetes mellitus with diabetic peripheral angiopathy without gangrene; Z89.431 Acquired absence of right foot; Z89.432 Acquired absence of left foot; M06.9 Rheumatoid arthritis, unspecified; I11.0 Hypertensive heart disease with heart failure; I50.9 Heart failure, unspecified; E11.42 Type 2 diabetes mellitus with diabetic polyneuropathy; Z79.4 Long term (current) use of insulin; L02.612 Cutaneous abscess of left foot; Z95.5 Presence of coronary angioplasty implant and graft; I25.10 Atherosclerotic heart disease of native coronary artery without angina pectoris; Y83.5 Amputation of limb(s) as the cause of abnormal reaction of the patient, or of later complication, without mention of misadventure at the time of the procedure; E78.5 Hyperlipidemia, unspecified; K21.9 Gastro-esophageal reflux disease without esophagitis; Z86.73 Personal history of transient ischemic attack (TIA), and cerebral infarction without residual deficits; Z86.718 Personal history of other venous thrombosis and embolism; E03.9 Hypothyroidism, unspecified; Z79.82 Long term (current) use of aspirin; Z79.02 Long term (current) use of antithrombotics/antiplatelets; Z79.890 Hormone replacement therapy; Z95.1 Presence of aortocoronary bypass graft
CPT/HCPCS: 73630; 99283

== ENCOUNTER 2021-07-29 16:11 | Emergency (ER) | payer MEDICARE, OTHER, SELFPAY ==
[2021-07-29 16:12] VITALS: BP 137/102; PULSE 106; RESP 20; TEMP 36.4; O2SAT 98
--- NOTE | 2021-07-29 16:32 | CT_ITS ---
STUDY: CT BRAIN WITHOUT CONTRAST REASON FOR EXAM: Female, 76 years old. fall RADIATION DOSAGE (If Supplied By Facility): CTDIvol = ( 44.99 ) mGy, DLP = ( 812.98 ) mGycm TECHNIQUE: Transaxial CT imaging of the brain was performed without administration of intravenous contrast material. Individualized dose optimization techniques were used for this CT. COMPARISON: 03/10/2017 FINDINGS: Normal soft tissue structures. Normal calvarium. There is mild cerebral atrophy with widening of the extra-axial spaces and ventricular dilatation. There are areas of decreased attenuation within the white matter tracts of the supratentorial brain, consistent with microvascular disease changes. There are small punctate calcifications of the basal ganglia which are seen in the aging brain as a normal variant. Normal brainstem. Normal cerebellum. There is no intracranial hemorrhage. There are no findings of an acute ischemic infarction. Normal visualized paranasal sinuses. CT/Brain/Head without Contrast IMPRESSION: Chronic involutional changes of the brain. Electronically Signed: Tonny Khalil MD at 17:42 EST ,
[2021-07-29] MEDS: oxyCODONE 5 MG Tablet PO (16:46)
--- NOTE | 2021-07-29 17:00 | RAD_ITS ---
STUDY: X-RAY - LEFT SHOULDER REASON FOR EXAM: Female, 76 years old. fall TECHNIQUE: 2 view(s) of the shoulder. COMPARISON: None. FINDINGS: Normal glenohumeral articulation. Normal acromioclavicular joint. Normal acromion. Acute nondisplaced avulsion fracture the greater tuberosity humerus. The soft tissue structures are unremarkable. Normal visualized pulmonary apex. RAD/Shoulder min 2 Views IMPRESSION: Acute nondisplaced avulsion fracture the greater tuberosity humerus. Electronically Signed: Tonny Khalil MD at 17:34 EST ,
--- NOTE | 2021-07-29 17:58 | EDS_ITS ---
HPI <ADRI MCDONOUGH - Last Filed: 07/29/21 18:08> HPI - Fall History of Present Illness Chief Complaint: Fall Informant: patient Occured/Mechanism Occurred: Today Narrative Narrative: Patient presents secondary to fall just prior to arrival. Patient was turning and caught left prosthetic foot on floor, causing her to fall hitting her left shoulder and head on the wall. Patient remembers all events, denies loss of consciousness. Patient complains of left shoulder pain and headache. Patient took Tylenol 30 minutes prior to arrival. Also took her prescribed 3 mL of morphine at 1030. Patient does take Plavix daily. [facility] <ADRI MCDONOUGH - Last Filed: 07/29/21 18:08> [facility] Medical History (Updated 07/29/21 @ 18:[address] 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 Carotid artery disease Carpal tunnel syndrome Charcot's joint of left foot Chest pain Congestive heart failure (CHF) Coronary artery disease CPAP (continuous positive airway pressure) dependence Diabetes Diabetes mellitus type 2 in obese DVT (deep venous thrombosis) Equinus contracture of left ankle Essential hypertension GERD (gastroesophageal reflux disease) GI bleed Gout History of blood clots History of blood transfusion History of CVA (cerebrovascular accident) Humerus fracture Hyperlipidemia Hypertension Hypothyroidism Hypothyroidism IBS (irritable bowel syndrome) Iron deficiency anemia Kidney stones Migraines Myocardial infarct Neuropathy 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 evidence of necrosis Non-smoker Obesity Osteoporosis Peripheral arterial occlusive disease Peripheral vascular disease Rheumatoid arthritis Sleep apnea Type 2 diabetes mellitus with diabetic polyneuropathy Type 2 diabetes mellitus with diabetic polyneuropathy Type 2 diabetes mellitus with foot ulcer Ulcer of abdomen wall with fat layer exposed Ulcer of left foot with fat layer exposed Vitamin D deficiency Home Medications pravastatin 40 mg PO QHS 03/10/17 [History Last Taken 12/07/20] allopurinol 100 mg PO DAILY 03/17/20 [History Last Taken 12/08/20] calcium citrate 200 mg PO BID #0 03/17/20 [Rx Last Taken 12/08/20] aspirin 81 mg tablet,delayed release 81 mg PO DAILY 04/05/20 [History Last Taken 12/07/20] cbd 1 dose PO 4X/DAY PRN PRN 11/10/20 [History Last Taken 12/08/20] qlpifj-gdamzogt-rrvwnwc 24,000-76,000-120,000 unit capsule,delayed rel 1 cap PO BID cap 04/05/20 [History Last Taken 12/08/20] carvedilol 25 mg PO BID 08/17/20 [History Last Taken 12/08/20] levothyroxine 75 mcg PO QHS 08/17/20 [History Last Taken 12/07/20] linaclotide 72 mcg PO DAILY 08/17/20 [History Last Taken 11/21/20] metoclopramide HCl 10 mg PO Q8H PRN PRN 08/17/20 [History Last Taken 12/07/20] nyizreblezke-deda-jwxfx acid 0.5 tablet PO BID 08/17/20 [History Last Taken 12/08/20] trazodone 100 mg PO QHS PRN PRN 08/17/20 [History Last Taken 12/07/20] venlafaxine 100 mg PO BID 08/17/20 [History Last Taken 12/08/20] insulin lispro 6 - 8 unit SUBCUT BID 08/22/20 [History Last Taken 12/08/20] acetaminophen 1,000 mg PO Q8H PRN PRN #0 tablet 09/09/20 [Rx Last Taken 12/08/20] tizanidine 4 mg PO Q8H PRN PRN #20 tablet 09/09/20 [Rx Last Taken 12/07/20] clopidogrel 75 mg tablet 75 mg PO DAILY #90 tablet 09/16/20 [Rx Last Taken 12/08/20] jjfwp-yuny-EfZZC-wfgktp-bi-fqc 1 packet PO BIDCM 09/19/20 [History Last Taken 12/08/20] morphine 3 ml PO Q6H PRN PRN 09/19/20 [History Last Taken 12/07/20] nitroglycerin 0.4 mg SL TID PRN PRN 09/19/20 [History Last Taken 1 Week Ago ~12/01/20] polyethylene glycol 3350 17 gm PO DAILY 09/19/20 [History Last Taken 12/08/20] sennosides-docusate sodium 1 tablet PO QHS 09/19/20 [History Last Taken 12/07/20] amlodipine 5 mg tablet 5 mg PO BID #180 tab 11/09/20 [Rx Last Taken 12/08/20] esomeprazole magnesium 20 mg PO BID 12/08/20 [History Last Taken 12/08/20] fexofenadine 180 mg PO DAILY 12/08/20 [History Last Taken 12/08/20] guaifenesin [Mucus Relief ER] 600 mg PO DAILY 12/08/20 [History Last Taken 12/08/20] isosorbide mononitrate 60 mg PO DAILY 12/08/20 [History Last Taken 12/08/20] isosorbide mononitrate 120 mg PO QHS 12/08/20 [History Last Taken 12/07/20] Lantus Solostar U-100 Insulin 25 unit SUBCUT BID 12/14/20 [History Last Taken Unknown] meropenem 1 g IV Q8H 12/14/20 [History Last Taken Unknown] oxycodone 5 mg PO Q6H PRN PRN #0 tab 12/14/20 [Rx Last Taken Unknown] benzonatate [Tessalon Perles] 100 mg PO TID PRN #90 cap 01/11/21 [Rx Last Taken Unknown] oxycodone 5 mg PO Q6H PRN PRN 7 Days #28 tab 01/11/21 [Rx Last Taken Unknown] sodium polystyrene sulfonate 15 gram/60 mL oral suspension 15 g PO DAILY 01/31/21 [History Last Taken Unknown] lisinopril 5 mg tablet 5 mg PO QDAY #30 tab 02/22/21 [Rx Last Taken Unknown] amoxicillin-pot clavulanate 1 tab PO BID 10 Days #20 tab 07/28/21 [Rx Last Taken Unknown] oxycodone 5 mg PO Q6H PRN 3 Days #10 tab 07/29/21 [Rx Last Taken Unknown] Allergy/AdvReac Type Severity Reaction Status Date / Time doxycycline Allergy Severe all over Verified 07/29/21 16:12 body hives and itching atorvastatin calcium Allergy Unknown Verified 07/29/21 16:12 [From Lipitor] bupropion HCl Allergy Unknown Verified 07/29/21 16:12 [From Wellbutrin] mannitol [From Reclast] Allergy joint Verified 07/29/21 16:12 pain, unable to breathe, unable to walk propoxyphene napsylate Allergy Unknown Verified 07/29/21 16:12 [From Darvocet-N 100] Quinolones Allergy Unknown Verified 07/29/21 16:12 Tetanus Vaccines and Toxoid Allergy Chest Verified 07/29/21 16:12 [Tetanus Vaccines & Toxoid] tightness tizanidine Allergy Unknown Verified 07/29/21 16:12 zoledronic acid Allergy joint Verified 07/29/21 16:12 [From Reclast] pain,unable to breathe, unaable to walk pravastatin AdvReac Severe Myalgias Verified 07/29/21 16:12 gemfibrozil AdvReac Intermediate Unknown Verified 07/29/21 16:12 NSAIDS (Non-Steroidal AdvReac Other Verified 07/29/21 16:12 Anti-Inflamma Family History Mother , age 75 Cancer CVA (cerebral vascular accident) CAD (coronary artery disease) Father CAD (coronary artery disease) History of coronary artery bypass graft Sister CAD (coronary artery disease) Multiple sclerosis Other Anxiety Bleeding disorder Depression Diabetes Heart disease High cholesterol Hypertension Surgical History History of appendectomy History of cholecystectomy History of [place] amputation of left foot History of coronary artery bypass graft History of coronary artery stent placement History of excision of lesion History of gastric bypass History of gastric bypass History of left heart catheterization History of ventral hernia repair Hx of CABG Hx of ventral hernia repair Stented coronary artery (12/03/18) Social History Smoking Status: Never smoker alcohol intake: never substance use type: does not use caffeine: Yes Type: coffee what type of physical activity do you participate in: none seatbelt use: sometimes do you feel safe at home: Yes additional social history: DOES NOT TAKE ASPIRIN DOES TAKE IBUPROFEN NEEDED ROS <ADRI MCDONOUGH - Last Filed: 07/29/21 18:08> ROS ED Constitutional Constitutional ED: Denies chills or fever(s) Eyes Eyes: Denies blurry vision, change in vision or diplopia ENT ENT ED: Denies ear pain, rhinorrhea or sore throat Cardiovascular Cardiovascular: Denies chest pain Respiratory/Chest Respiratory/Chest: Denies cough or dyspnea Gastrointestinal Gastrointestinal: Denies nausea or vomiting Genitourinary Genitourinary ED: Denies dysuria or hematuria Musculoskeletal Musculoskeletal: Denies arthralgias or myalgias Neurologic Neurologic: Reports headache(s); Denies paresthesias Psychiatric Psychiatric: Denies anxiety or depression EXAM <ADRI MCDONOUGH - Last Filed: 07/29/21 18:08> Physical Exam Const Vital Signs: 07/29/21 16:12 07/29/21 16:19 Temperature 97.5 F L Temperature Source Temporal Pulse Rate 106 H Respiratory Rate 20 H Respiratory Effort Normal Respiratory Depth Normal Respiratory Pattern Normal Blood Pressure 137/102 H Blood Pressure Mean 113 Pulse Ox 98 Oxygen Delivery Method Room Air Room Air Positive well nourished and well developed General Appearance ED: well developed HEENT Reports normocephalic atraumatic; Negative for contusion or hematoma Eyes PERRL and EOMs intact bilaterally Neck full ROM and supple Chest Wall inspection of chest normal Resp normal respiratory effort and clear to auscultation bilaterally Cardio regular rate and regular rhythm GI non-tender and non-distended Auscultation: normoactive bowel sounds Palpation: soft Back/Spine Cervical Spine: Negative for cervical spine tenderness Extremity Extremity Narrative: Mild tenderness to palpation on left thigh. Normal range of motion, denies paresthesia. Left Upper Extremity: shoulder joint Shoulder Joint Exam - Left: inspection (No ecchymosis.), palpation (Significant tenderness on palpation to joint.), ROM (Painful range of motion at shoulder elbow and wrist.), neurovascular exam (Radial pulse 2+.) and special tests Neuro oriented x3, CN's II-XII intact bilaterally, moves all extremities, no focal motor deficits and no sensory deficits noted Sensorium / Orientation: alert Psych mental status grossly normal <Dr. Julia Ellis MD - Last Filed: 07/29/21 18:22> Physical Exam Const Vital Signs: 07/29/21 16:12 07/29/21 16:19 Temperature 97.5 F L Temperature Source Temporal Pulse Rate 106 H Respiratory Rate 20 H Respiratory Effort Normal Respiratory Depth Normal Respiratory Pattern Normal Blood Pressure 137/102 H Blood Pressure Mean 113 Pulse Ox 98 Oxygen Delivery Method Room Air Room Air MDM <ADRIRED BATISTARAFAELA - Last Filed: 07/29/21 18:08> [facility] Narrative Medical decision making narrative: Patient ordered oxycodone for pain control as patient had previous home prescription for this. Head CT and left shoulder x- ray ordered. Radiography Diagnostic Testing: Clinical Impression(s) from Imaging Studies Brain CT 07/29/21 16:32 IMPRESSION: Chronic involutional changes of the brain. Electronically Signed: Tonny Khalil MD at 17:42 EST Reading Location ID and State: [id number] / [employer] Tel , Service support , Shoulder X-Ray 07/29/21 17:00 IMPRESSION: Acute nondisplaced avulsion fracture the greater tuberosity humerus. Electronically Signed: Tonny Khalil MD at 17:34 EST Reading Location ID and State: [id number] / [employer] Tel , Service support , Treatment and Re-Evaluation Comments:: Brain CT negative. Left shoulder x-ray shows acute nondisplaced avulsion fracture the greater tuberosity humerus. On reevaluation, patient resting comfortably unless moving left arm. X-ray results reviewed with patient and . Agreeable to discharge home with sling and close follow-up with Ortho. <Dr. Julia Ellis MD - Last Filed: 07/29/21 18:22> MDM Radiography Diagnostic Testing: Clinical Impression(s) from Imaging Studies Brain CT 07/29/21 16:32 IMPRESSION: Chronic involutional changes of the brain. Electronically Signed: Tonny Khalil MD at 17:42 EST Reading Location ID and State: [id number] / [employer] Tel , Service support , Shoulder X-Ray 07/29/21 17:00 IMPRESSION: Acute nondisplaced avulsion fracture the greater tuberosity humerus. Electronically Signed: Tonny Khalil MD at 17:34 EST Reading Location ID and State: [id number] / [employer] Tel , Service support , Treatment and Re-Evaluation Comments:: Patient seen and evaluated with [employer] student. Patient presents after mechanical fall catching her prosthetic foot against the ground causing her to lose her balance. She struck her left shoulder and head against the wall. No loss of consciousness. Patient sitting upright in bed no acute distress. Head and neck examination shows no obvious external sign of trauma. No C-spine tenderness. Heart is regular rate and rhythm. Lung sounds are clear. Abdomen is soft and nontender. Extremity examination reveals mild tenderness along the left humeral head. Strong distal pulses. Good cap refill distally with normal sensation. Head CT obtained along with left shoulder x-rays. Head CT reveals no acute findings. Left shoulder x-ray per my interpretation reveals a avulsion fracture off the humeral head. Radiology to rotation reviewed and agrees. Patient given oxycodone here for pain control. Test results discussed with patient and at bedside. She be placed in a sling and encouraged to follow-up closely with orthopedics for early range of motion to prevent frozen shoulder. She will be given a short course of oxycodone at home for pain control. Return instructions provided. Discharge Plan Triage Chief Complaint: Fall ED Provider: Julia Ellis Dx/Rx/DC Orders Clinical Impression: Closed left humeral fracture, Fall Instructions: Understanding a Humerus Fracture, ED Fracture, Upper Extremity Prescriptions: New oxycodone 5 mg tablet 5 mg PO Q6H PRN (Reason: pain) 3 Days Qty: 10 RF: 0 No Action Creon 24,000-76,000 -120,000 unit capsule,delayed release(DR/EC) 1 cap PO BID RF: 0 cbd 1 dose PO 4X/DAY PRN PRN (Reason: pain/1500) RF: 0 aspirin [Adult Low Dose Aspirin] 81 mg tablet,delayed release (DR/EC) 81 mg PO DAILY RF: 0 sodium polystyrene sulfonate 15 gram/60 mL suspension 15 g PO DAILY RF: 0 pravastatin 40 MG tablet 40 mg PO QHS RF: 0 allopurinol 100 MG tablet 100 mg PO DAILY RF: 0 calcium citrate 200 MG tablet 200 mg PO BID Qty: 0 RF: 0 levothyroxine 75 MCG tablet 75 mcg PO QHS RF: 0 venlafaxine 100 MG tablet 100 mg PO BID RF: 0 trazodone 100 MG tablet 100 mg PO QHS PRN PRN (Reason: Sleep) RF: 0 metoclopramide HCl 10 MG tablet 10 mg PO Q8H PRN PRN (Reason: Nausea) RF: 0 vpndsymcostl-uwql-avqrf acid 1 EACH tablet 0.5 tablet PO BID RF: 0 linaclotide 72 MCG capsule 72 mcg PO DAILY RF: 0 carvedilol 25 MG tablet 25 mg PO BID RF: 0 insulin lispro 100 UNIT/ML insulin pen 6 - 8 unit subcut BID RF: 0 acetaminophen 500 MG tablet 1,000 mg PO Q8H PRN PRN (Reason: Pain Score 1-3) Qty: 0 RF: 0 tizanidine 4 MG tablet 4 mg PO Q8H PRN PRN (Reason: Muscle Spasm) Qty: 20 RF: 0 nitroglycerin 0.4 MG bottle 0.4 mg SL TID PRN PRN (Reason: chest pain) RF: 0 morphine 10 MG/5 ML solution 3 ml PO Q6H PRN PRN (Reason: Pain) RF: 0 polyethylene glycol 3350 17 GM packet 17 gm PO DAILY RF: 0 sennosides-docusate sodium 1 TABLET tablet 1 tablet PO QHS RF: 0 mxkne-yaoa-FfKEE-ubrwqr-zt-kkm 1 PACKET packet 1 packet PO BIDCM RF: 0 isosorbide mononitrate 60 mg tablet extended release 24 hr 60 mg PO DAILY RF: 0 isosorbide mononitrate 60 mg tablet extended release 24 hr 120 mg PO QHS RF: 0 esomeprazole magnesium 20 mg capsule,delayed release(DR/EC) 20 mg PO BID RF: 0 fexofenadine 180 mg Tablet 180 mg PO DAILY RF: 0 guaifenesin [Mucus Relief ER] 600 mg tablet extended release 12hr 600 mg PO DAILY RF: 0 oxycodone 5 mg Tablet 5 mg PO Q6H PRN PRN (Reason: Pain Score 6-10) Qty: 0 RF: 0 meropenem 1 gram recon soln 1 g IV Q8H RF: 0 Lantus Solostar U-100 Insulin 100 unit/mL (3 mL) insulin pen 25 unit subcut BID RF: 0 benzonatate [Tessalon Perles] 100 mg capsule 100 mg PO TID PRN (Reason: cough) Qty: 90 RF: 0 oxycodone 5 mg Tablet 5 mg PO Q6H PRN PRN (Reason: Pain Score 6-10) 7 Days Qty: 28 RF: 0 amoxicillin-pot clavulanate 875-125 mg tablet 1 tab PO BID 10 Days Qty: 20 RF: 0 clopidogrel 75 mg tablet 75 mg PO DAILY Qty: 90 RF: 3 amlodipine 5 mg tablet 5 mg PO BID Qty: 180 RF: 3 lisinopril 5 mg tablet 5 mg PO QDAY Qty: 30 RF: 12 Primary Care Provider: Con Johnson Referrals: Con Johnson MD [Primary Care Provider] - Chris Andres DO [STAFF PHYSICIAN] - 5-7 Days Disposition Disposition: Home, Self Care
[2021-07-29 18:42] VITALS: BP 134/78; PULSE 78; RESP 14; O2SAT 98
== END 2021-07-29 19:05 | disposition home or self-care (01) ==
PROVIDERS: Emergency Provider Emergency Medicine; PCP Family Medicine; Visit Provider Emergency Medicine
DX: S42.255A Nondisplaced fracture of greater tuberosity of left humerus, initial encounter for closed fracture (principal); W01.198A Fall on same level from slipping, tripping and stumbling with subsequent striking against other object, initial encounter; I11.0 Hypertensive heart disease with heart failure; I50.9 Heart failure, unspecified; E11.51 Type 2 diabetes mellitus with diabetic peripheral angiopathy without gangrene; E11.42 Type 2 diabetes mellitus with diabetic polyneuropathy; M06.9 Rheumatoid arthritis, unspecified; I25.10 Atherosclerotic heart disease of native coronary artery without angina pectoris; E03.9 Hypothyroidism, unspecified; E78.5 Hyperlipidemia, unspecified; K21.9 Gastro-esophageal reflux disease without esophagitis; M10.9 Gout, unspecified; E66.9 Obesity, unspecified; Z79.4 Long term (current) use of insulin; Z79.82 Long term (current) use of aspirin; Z79.02 Long term (current) use of antithrombotics/antiplatelets; Z79.890 Hormone replacement therapy; Z79.899 Other long term (current) drug therapy; Z86.73 Personal history of transient ischemic attack (TIA), and cerebral infarction without residual deficits; Z95.1 Presence of aortocoronary bypass graft; Z95.5 Presence of coronary angioplasty implant and graft
CPT/HCPCS: 70450; 73030; 99283

== ENCOUNTER 2021-08-23 08:30 | Outpatient (RCR) | payer MEDICARE, OTHER, SELFPAY ==
[2021-08-16 08:33] VITALS: BP 172/73; PULSE 72; RESP 18; TEMP 37.1
--- NOTE | 2021-08-16 09:23 | PCM.WC.PN ---
History of Present Illness Date of Service: 08/16/21 Chief Complaint: Left foot History of Wound: This is 76-year-old female with diabetic neuropathy history of Charcot left foot with rocker-bottom deformity, coronary artery disease and other comorbidities has a recurrent ulcer. She has had delayed healing of her plantar foot ulcer secondary to rocker-bottom Charcot foot deformity, recurrent ulcers and infections. She completed left lower extremity vascular surgery intervention procedure and had this successfully completed at [facility] with Dr. Pang. he denies fever, chill, nausea, vomiting, calf pain, or diarrhea. She was referred from the foot and ankle center. She is having trouble offloading because she also concurrently broke her left shoulder and is wearing a sling. She is not able to use a knee roller. We discussed the use of a wheelchair at her last foot and ankle Center visit and she is trying her best to use this with the help of her . She still has to walk on her foot for transfers. She is no longer on antibiotics. Progress of Wound: Stable Objective Data Objective Data Vital Signs: Vital Signs Temp Pulse Resp BP 98.7 F 72 18 172/73 H 08/16/21 08:33 08/16/21 08:33 08/16/21 08:33 08/16/21 08:33 Physical Exam Narrative Left foot: Chopart amputation plantar central slight lateral skin discontinuity with deep probing. There is adipose tissue exposed subcutaneous tissue. There is no direct probe to bone, necrosis maceration odor or erythema or purulence. There is no cellulitis, no fluctuance or bogginess to the left foot. No odor or streaking or purulence to the left foot. Negative Claudio and Elizondo sign left. Compartments remain soft to palpate left lower extremity. Capillary fill time is brisk to all margins of the amputation occluding a complex flap closure. DP/PT 2/4, left Debridement Note Debridement Note Wound debrided: plantar left foot Wound Grade/Stage: 1 Type of Debridement: Excisional debridement Anesthesia Used: 4% Lidocaine Solution Depth: in the subcutaneous layer Percentage of wound debrided: 100 Instrument Used: #15 blade Tissue Removed: fibrous, devitalized subcutaneous, biofilm, slough Severity: Fat Layer Exposed Amount of bleeding with debridement: Mild Bleeding Controlled with: Pressure Patient tolerated procedure: Patient tolerated procedure well Post-Debridement Measurements and Additional Note: Post-Debridement Measurements/Treatment WC - Nurse 1 - General Ulcer Assessment Start: 08/16/21 08:33 Freq: Status: Active Protocol: EUGENE Activity Type Activity Date Activity User E-Sign Co-Sign Detail Recorded Client Recorded Date Recorded By Document 08/16/21 08:33 [id number] 08/16/21 08:42 RB 08/16/21 08:33 WC - Today's Visit Information Type of service Initial Visit Arrival Mode Wheelchair Transfer Assistance Manual Patient Identification Verified (Name & Yes ) Patient Requires Transmission-Based No Precautions Vital Signs Temperature (97.8 F-99.1 F) 98.7 F Temperature Source Temporal Pulse Rate (60-100) 72 Pulse Location Monitor Respiratory Rate (12-18) 18 Respiratory rate source Observation Blood Pressure (90/60-120/80) 172/73 H Blood Pressure Mean (mm Hg) 106 Source Monitor Position Sitting Blood Pressure Location Left Arm Pain Scale: 0-10 Numeric Is Patient Pain Free? Yes - Nurse 1 - General Ulcer Measurement Start: 08/16/21 08:33 Freq: Status: Active Protocol: Activity Type Activity Date Activity User E-Sign Co-Sign Detail Recorded Client Recorded Date Recorded By Document 08/16/21 08:33 [id number] 08/16/21 08:42 RB 08/16/21 08:33 Wound Center Nurse 1 10. L plantar -Combined with other wound No -Current Size (cm) - Length 1.2 -Current Size (cm) - Width 0.9 -Current Size (cm) - Depth 1.5 -Total Square Cm 1.08 -Photo Taken Yes -Tunneling No -Undermining/Tunneling No -Circular Undermining No -Exudate Amt Medium -Exudate Type Serosanguineous -Wound Margin Distinct, Outline Attached -Granulation Amt Medium (34-66%) -Granulation Quality Stow -Slough/Fibrin Yes -Necrosis Amt Large (67-100%) -Structure Exposed N/A -Texture (Shannon-wound Skin Appearance) Assessed,Callus -Moisture (Shannon-wound Skin Appearance) Assessed -Color (Shannon-wound Skin Appearance) Assessed -Temperature (Shannon-wound Skin No Abnormality Appearance) (Pt Warm) -Tenderness on Palpation (Shannon-wound No Skin Appearance) -Ulcer Cleansing Wound Cleanser -Foul Odor after Cleansing No -Anesthetic Used 5% Lidocaine Gel Lower Limb Edema Present Yes Right Calf (cm) 32.5 Right Ankle (cm) 20 Left Calf (cm) 33.5 Left Ankle (cm) 20.5 WC - Nurse 2 - General Ulcer CM Notes Start: 08/16/21 08:33 Freq: Status: Active Protocol: Activity Type Activity Date Activity User E-Sign Co-Sign Detail Recorded Client Recorded Date Recorded By Document 08/16/21 08:56 [id number] 08/16/21 09:01 08/16/21 08:56 Wound Center Nurse 2 10. L plantar -Time 08:56 -Correct Patient Yes -Correct Side, Site, Position Yes -Correct Procedure Yes -Procedure Performed Yes -Type of Procedure Debridement -Clinical Debridement Subcutaneous -Tissue Removed Subcutaneous -Post Debridement (cm) - Length 1.2 -Post Debridement (cm) - Width 1.0 -Post Debridement (cm) - Depth 1.5 -Total Square (Post) (cm) 1.20 -Area of Debridement (cm) - Length 1.2 -Area of Debridement (cm) - Width 1.0 -Total Square (Area) (cm) 1.20 -Tunneling No -Undermining/Tunneling No -Circular Undermining No -Wound/Ulcer Outcome Not Healed -Ulcer Cleansing Rinsed/ Irrigated with Saline -Foul Odor after Cleansing No -Bioengineered Tissue No -Bleeding Controlled with Pressure -Treatment Response Procedure Tolerated Well -Offloading Yes -Type of Offloading Surgical Shoe -Debridement - Subq, 1st 20sq cm Yes Pain Scale: 0-10 Numeric Is Patient Pain Free? Yes - Nurse 3 - General Ulcer D/C NN Start: 08/16/21 08:33 Freq: Status: Active Protocol: Activity Type Activity Date Activity User E-Sign Co-Sign Detail Recorded Client Recorded Date Recorded By Document 08/16/21 09:18 DL [id number] 08/16/21 09:19 DL 08/16/21 09:18 Wound Care Nurse 3 10. L plantar -Ulcer Cleansing Soap and Water -Foul Odor after Cleansing No -Primary Dressing Applied Aquacel AG 2x2 -Primary Dressing Covered/Secured with Dry Gauze & Roll Gauze, Secured with Tape -Aquacel AG 2x2 1 Treatment Response Procedure Tolerated Well Pain Scale: 0-10 Numeric Is Patient Pain Free? Yes WC - Visit Discharge Discharge Condition Stable Ambulatory Status Wheelchair Transportation Private Auto Assessment/Plan Assessment/Plan (1) Delayed wound healing: CODE(S): T14.8XXD - Other injury of unspecified body region, subsequent encounter (2) Charcot's joint of left foot: CODE(S): M14.672 - Charcot's joint, left ankle and foot (3) Type 2 diabetes mellitus with diabetic polyneuropathy: CODE(S): E11.42 - Type 2 diabetes mellitus with diabetic polyneuropathy QUALIFIERS: Diabetes mellitus intermediate teacher insulin use: with detention use Qualified Code(s): E11.42 - Type 2 diabetes mellitus with diabetic polyneuropathy; Z79.4 - nursing home (current) use of insulin (4) Chronic ulcer of left foot with fat layer exposed: CODE(S): L97.522 - Non-pressure chronic ulcer of other part of left foot with fat layer exposed PLAN: I reviewed and discussed her case. Debridement was performed excisional subcutaneous manner to the left foot. To change dressing daily with with [employer]. To use Dial soap. I recommend the application of advanced wound healing product to optimize healing. This is medically necessary to prevent further limb loss and to promote healing. Prior authorization will be initiated for epi cord and epi fix. The indications, benefits, anticipated application management were reviewed. She is familiar with the process. She is reassured no local signs of infection are noted. To monitor. Vascular surgery intervention was performed successfully at [facility] recently with Dr. Pang w/ antioplasty at femoral through adductor into popliteal (balloon). To maintain non weightbearing status with the use of assistive devices (knee roller/walker when able secondary to shoulder fracture) left lower extremity. To use wheelchair with the assistance of the help of her . I talked her about total contact cast application and I evaluated the cast boot in correspondence with her shorter amputated foot status. This appears to be way too large and I ultimately do not recommended due to improper fit and further balance loss risk. Imaging: X-rays were reviewed from prior emergency room visit in 07/2021. To continue nutritional supplementation to optimize healing. She is taking Blue and has also been trying to eat more fresh foods. She is working on more detailed diet planning with her primary care physician. F/u wound care center 1 week. I answered all of her questions. To call sooner or go to the emergency room if her clinical appearance worsens or if she develops systemic signs of illness. She is at risk for amputation and limb loss and systemic illness due to her comorbidities. 12 minutes was spent on this encounter. This included face to face and non face to face care including preparing for the visit, reviewing the history, performing the exam, counseling and providing education to the patient, family, or caregiver, ordering medications/test/ procedures if indicated as documented, communicating with other healthcare providers, documenting information in the medical record, interpreting / sharing this information when indicated as documented, and care coordination.
[2021-08-23 08:37] VITALS: BP 133/74; PULSE 68; TEMP 36.3
--- NOTE | 2021-08-23 15:35 | PCM.WC.PN ---
History of Present Illness Date of Service: 08/23/21 Chief Complaint: Left foot History of Wound: This is 76-year-old female with diabetic neuropathy history of Charcot left foot with rocker-bottom deformity, coronary artery disease and other comorbidities has a recurrent ulcer. She has had delayed healing of her plantar foot ulcer secondary to rocker-bottom Charcot foot deformity, recurrent ulcers and infections. She completed left lower extremity vascular surgery intervention procedure and had this successfully completed at [facility] with Dr. Pang. He denies fever, chill, nausea, vomiting, calf pain, or diarrhea. She was referred from the foot and ankle center. She is having trouble offloading because she also concurrently broke her left shoulder and is wearing a sling. She is not able to use a knee roller. We discussed the use of a wheelchair at her last foot and ankle Center visit and she is trying her best to use this with the help of her . She still has to walk on her foot for transfers. She is no longer on antibiotics. Progress of Wound: Stable Objective Data Objective Data Vital Signs: Vital Signs Temp Pulse Resp BP 97.4 F L 68 18 133/74 H 08/23/21 08:37 08/23/21 08:37 08/16/21 08:33 08/23/21 08:37 Physical Exam Narrative Left foot: Chopart amputation plantar central slight lateral skin discontinuity with deep probing. There is adipose tissue exposed subcutaneous tissue. There is no direct probe to bone, necrosis maceration odor or erythema or purulence. There is no cellulitis, no fluctuance or bogginess to the left foot. No odor or streaking or purulence to the left foot. Negative Claudio and Elizondo sign left. Compartments remain soft to palpate left lower extremity. Capillary fill time is brisk to all margins of the amputation occluding a complex flap closure. DP/PT 2/4, left Debridement Note Debridement Note Wound debrided: plantar left foot Wound Grade/Stage: 2 Type of Debridement: Excisional debridement Anesthesia Used: 4% Lidocaine Solution Depth: in the subcutaneous layer Percentage of wound debrided: 100 Instrument Used: #15 blade Tissue Removed: fibrous, devitalized subcutaneous, biofilm, slough Severity: Fat Layer Exposed Amount of bleeding with debridement: Mild Bleeding Controlled with: Pressure Patient tolerated procedure: Patient tolerated procedure well Post-Debridement Measurements and Additional Note: Post-Debridement Measurements/Treatment - Nurse 1 - General Ulcer Assessment Start: 08/16/21 08:33 Freq: Status: Active Protocol: EUGENE Activity Type Activity Date Activity User E-Sign Co-Sign Detail Recorded Client Recorded Date Recorded By Document 08/16/21 08:33 RB [id number] 08/16/21 08:42 RB Document 08/23/21 08:37 KR [id number] 08/23/21 08:40 KR 08/16/21 08/23/21 08:33 08:37 WC - Today's Visit Information Type of service Initial Visit Follow-up Visit (Physician/INSTRUCTOR TRAINER CANINE SERVICE ) Arrival Mode Wheelchair Wheelchair Transfer Assistance Manual Patient Identification Verified (Name & Yes Yes ) Patient Requires Transmission-Based No Precautions Vital Signs Temperature (97.8 F-99.1 F) 98.7 F 97.4 F L Temperature Source Temporal Temporal Pulse Rate (60-100) 72 68 Pulse Location Monitor Monitor Respiratory Rate (12-18) 18 Respiratory rate source Observation Blood Pressure (90/60-120/80) 172/73 H 133/74 H Blood Pressure Mean (mm Hg) 106 93 Source Monitor Monitor Position Sitting Sitting Blood Pressure Location Left Arm Left Arm History Since Last Visit- (Skip if this is Patient's initial visit) Have you changed medications since your No last visit? Any new allergies or adverse reactions No Had a fall/change in ADL's that may No increase risk of falls Signs or symptoms of abuse and/or No neglect since last visit Have you been in the hospital since your No last visit? Has dressing in place as prescribed Yes Has compression in place as prescribed Yes Has offloadiing in place as prescribed N/A Experienced any changes in pain level or No management Left Footwear Slipper Right Footwear Slipper Pain Scale: 0-10 Numeric Is Patient Pain Free? Yes Yes - Nurse 1 - General Ulcer Measurement Start: 08/16/21 08:33 Freq: Status: Active Protocol: Activity Type Activity Date Activity User E-Sign Co-Sign Detail Recorded Client Recorded Date Recorded By Document 08/16/21 08:33 RB [id number] 08/16/21 08:42 RB Document 08/23/21 08:37 KR [id number] 08/23/21 08:40 KR 08/16/21 08/23/21 08:33 08:37 Wound Center Nurse 1 10. L plantar -Combined with other wound No -Current Size (cm) - Length 1.2 1 -Current Size (cm) - Width 0.9 0.6 -Current Size (cm) - Depth 1.5 1.7 -Total Square Cm 1.08 0.6 -Photo Taken Yes -Tunneling No -Undermining/Tunneling No -Undermining/Tunneling Starts (O'clock 12 ) -Undermining/Tunneling Ends (O'clock) 12 -Maximum Distance (cm) 1.5 -Circular Undermining No -Exudate Amt Medium Small -Exudate Type Serosanguineous Serosanguineous -Wound Margin Distinct, Distinct, Outline Outline Attached Attached -Granulation Amt Medium (34-66%) Small (1-33%) -Granulation Quality Rand Rand -Slough/Fibrin Yes -Necrosis Amt Large (67-100%) Small (1-33%) -Necrotic Tissue Type Adherent Slough -Structure Exposed N/A Fascia -Texture (Shannon-wound Skin Appearance) Assessed,Callus Assessed, Scarring -Moisture (Shannon-wound Skin Appearance) Assessed No Abnormality, Assessed -Color (Shannon-wound Skin Appearance) Assessed No Abnormality, Assessed -Temperature (Shannon-wound Skin No Abnormality No Abnormality Appearance) (Pt Warm) (Pt Warm) -Tenderness on Palpation (Shannon-wound No No Skin Appearance) -Ulcer Cleansing Wound Cleanser Soap and Water -Foul Odor after Cleansing No No -Anesthetic Used 5% Lidocaine 5% Lidocaine Gel Gel Lower Limb Edema Present Yes Right Calf (cm) 32.5 Right Ankle (cm) 20 Left Calf (cm) 33.5 Left Ankle (cm) 20.5 WC - Nurse 2 - General Ulcer CM Notes Start: 08/16/21 08:33 Freq: Status: Active Protocol: Activity Type Activity Date Activity User E-Sign Co-Sign Detail Recorded Client Recorded Date Recorded By Document 08/16/21 08:56 [id number] 08/16/21 09:01 Document 08/23/21 08:46 EULOGIO [id number] 08/23/21 08:54 EULOGIO 08/16/21 08/23/21 08:56 08:46 Wound Center Nurse 2 10. L plantar -Time 08:56 08:52 -Correct Patient Yes Yes -Correct Side, Site, Position Yes Yes -Correct Procedure Yes Yes -Procedure Performed Yes Yes -Type of Procedure Debridement Debridement -Clinical Debridement Subcutaneous Subcutaneous -Tissue Removed Subcutaneous Subcutaneous -Post Debridement (cm) - Length 1.2 1.1 -Post Debridement (cm) - Width 1.0 0.9 -Post Debridement (cm) - Depth 1.5 2.0 -Total Square (Post) (cm) 1.20 0.99 -Area of Debridement (cm) - Length 1.2 1.1 -Area of Debridement (cm) - Width 1.0 0.9 -Total Square (Area) (cm) 1.20 0.99 -Tunneling No No -Undermining/Tunneling No No -Circular Undermining No No -Wound/Ulcer Outcome Not Healed Not Healed -Ulcer Cleansing Rinsed/ Rinsed/ Irrigated with Irrigated with Saline Saline -Foul Odor after Cleansing No No -Bioengineered Tissue No Yes -Type of Bioengineered Tissue Epicord -Expiration Date 01/25/26 -Product Lot Number [id number] -Percent Used 100 -Lot number of Saline Used [id number] -Bleeding Controlled with Pressure Pressure -Treatment Response Procedure Procedure Tolerated Well Tolerated Well -Offloading Yes No -Type of Offloading Surgical Shoe -Assistive Device(s) Wheelchair -Debridement - Subq, 1st 20sq cm Yes No -Apply Skin Sub - 1st 25 sq cm - Feet 1 -Epicord (per sq cm) 6 Pain Scale: 0-10 Numeric Is Patient Pain Free? Yes Yes - Nurse 3 - General Ulcer D/C NN Start: 08/16/21 08:33 Freq: Status: Active Protocol: Activity Type Activity Date Activity User E-Sign Co-Sign Detail Recorded Client Recorded Date Recorded By Document 08/16/21 09:18 DL [id number] 08/16/21 09:19 DL Document 08/23/21 09:11 RB [id number] 08/23/21 09:12 RB 08/16/21 08/23/21 09:18 09:11 Wound Care Nurse 3 10. L plantar -Ulcer Cleansing Soap and Water -Foul Odor after Cleansing No -Primary Dressing Applied Aquacel AG 2x2 -Other Dressing abd pad -Primary Dressing Covered/Secured with Dry Gauze & Dry Gauze,Dry Roll Gauze, Gauze & Roll Secured with Gauze,Secured Tape with Tape -Aquacel AG 2x2 1 Treatment Response Procedure Procedure Tolerated Well Tolerated Well Pain Scale: 0-10 Numeric Is Patient Pain Free? Yes Yes WC - Visit Discharge Discharge Condition Stable Stable Ambulatory Status Wheelchair Wheelchair Transportation Private Auto Private Auto Medication Reconcilliation completed & No provided to patient/care provider Clinical Summary of Care Provided Yes Assessment/Plan Assessment/Plan (1) Delayed wound healing: CODE(S): T14.8XXD - Other injury of unspecified body region, subsequent encounter (2) Charcot's joint of left foot: CODE(S): M14.672 - Charcot's joint, left ankle and foot (3) Type 2 diabetes mellitus with diabetic polyneuropathy: CODE(S): E11.42 - Type 2 diabetes mellitus with diabetic polyneuropathy QUALIFIERS: Diabetes mellitus longterm insulin use: with lightout examiner use Qualified Code(s): E11.42 - Type 2 diabetes mellitus with diabetic polyneuropathy; Z79.4 - custodial (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 Debridement was performed excisional subcutaneous manner to the left foot. I recommend the application of advanced wound healing product to optimize healing. This is medically necessary to prevent further limb loss and to promote healing. The indications, benefits, anticipated application management were reviewed. She is familiar with the process. Verbal consent was obtained and epi cord was applied according standard protocol to the plantar left foot. 100% of the product was utilized. This was covered with a wound veil and Steri-Strips. She was advised keep this clean, dry, and intact until follow-up next week. She tolerated this well. She is reassured no local signs of infection are noted. To monitor. Vascular surgery intervention was performed successfully at [facility] recently with Dr. Pang w/ antioplasty at femoral through adductor into popliteal (balloon). To maintain non weightbearing status with the use of assistive devices (knee roller/walker when able secondary to shoulder fracture) left lower extremity. To use wheelchair with the assistance of the help of her . I talked her about total contact cast application and I evaluated the cast boot in correspondence with her shorter amputated foot status. This appears to be way too large and I ultimately do not recommended due to improper fit and further balance loss risk. Imaging: X-rays were reviewed from prior emergency room visit in 07/2021. To continue nutritional supplementation to optimize healing. She is taking Blue and has also been trying to eat more fresh foods. She is working on more detailed diet planning with her primary care physician. F/u wound care center 1 week. I answered all of her questions. To call sooner or go to the emergency room if her clinical appearance worsens or if she develops systemic signs of illness. She is at risk for amputation and limb loss and systemic illness due to her comorbidities.
[2021-09-05 15:08] VITALS: BP 161/70; PULSE 76; RESP 18; TEMP 35.7
== END 2021-08-24 23:59 | disposition home or self-care (01) ==
LOC: WC 08:30
PROVIDERS: PCP Family Medicine; Visit Provider Podiatrist
DX: E11.621 Type 2 diabetes mellitus with foot ulcer (principal); L97.522 Non-pressure chronic ulcer of other part of left foot with fat layer exposed; E11.42 Type 2 diabetes mellitus with diabetic polyneuropathy; E11.610 Type 2 diabetes mellitus with diabetic neuropathic arthropathy; I25.10 Atherosclerotic heart disease of native coronary artery without angina pectoris; Z79.82 Long term (current) use of aspirin; Z79.4 Long term (current) use of insulin; Z79.02 Long term (current) use of antithrombotics/antiplatelets
CPT/HCPCS: 11042; 15275; 99213; Q4187; G0463

== ENCOUNTER 2021-09-20 09:30 | Outpatient (RCR) | payer MEDICARE, OTHER, SELFPAY ==
[2021-08-25 00:53] VITALS: BP 133/74; PULSE 68; RESP 18; TEMP 36.3
[2021-08-30 09:43] VITALS: BP 129/76; PULSE 71; RESP 20; TEMP 36.4
--- NOTE | 2021-08-30 10:34 | PCM.WC.PN ---
History of Present Illness Date of Service: 08/30/21 Chief Complaint: Left foot History of Wound: This is 76-year-old female with diabetic neuropathy history of Charcot left foot with rocker-bottom deformity, coronary artery disease and other comorbidities has a recurrent ulcer. She has had delayed healing of her plantar foot ulcer secondary to rocker-bottom Charcot foot deformity, recurrent ulcers and infections. She completed left lower extremity vascular surgery intervention procedure and had this successfully completed at [facility] with Dr. Pang. He denies fever, chill, nausea, vomiting, calf pain, or diarrhea. She was referred from the [facility]. She uses a wheelchair and has been able to stay off her foot better. She is no longer on antibiotics. Progress of Wound: improving base Objective Data Objective Data Vital Signs: Vital Signs Temp Pulse Resp BP 97.6 F L 71 20 H 129/76 H 08/30/21 09:43 08/30/21 09:43 08/30/21 09:43 08/30/21 09:43 Physical Exam Narrative Left foot: Chopart amputation plantar central slight lateral skin discontinuity with deep probing. There is adipose tissue exposed subcutaneous tissue. There is no direct probe to bone, necrosis, maceration, odor, erythema, or purulence noted. There is no cellulitis, no fluctuance or bogginess to the left foot. Negative Claudio and Elizondo sign left. Compartments remain soft to palpate left lower extremity. DP 2/4, left. deep probing noted. ulcer is mobile and adjacent skin is flexible Debridement Note Debridement Note Wound debrided: plantar left foot Wound Grade/Stage: 2 Type of Debridement: Excisional debridement Anesthesia Used: 4% Lidocaine Solution Depth: in the subcutaneous layer Percentage of wound debrided: 100 Instrument Used: #15 blade Tissue Removed: fibrous, devitalized subcutaneous, biofilm, slough Severity: Fat Layer Exposed Amount of bleeding with debridement: Mild Bleeding Controlled with: Pressure Patient tolerated procedure: Patient tolerated procedure well Post-Debridement Measurements and Additional Note: Post-Debridement Measurements/Treatment WC - Nurse 1 - General Ulcer Assessment Start: 08/30/21 09:43 Freq: Status: Active Protocol: EUGENE Activity Type Activity Date Activity User E-Sign Co-Sign Detail Recorded Client Recorded Date Recorded By Document 08/30/21 09:43 DL [id number] 08/30/21 09:51 DL 08/30/21 09:43 - Today's Visit Information Type of service Follow-up Visit (Physician/TRAVEL REGISTERED NURSE NICU ) Arrival Mode Wheelchair Transfer Assistance Manual Transfer Assist (Other) x1 Patient Identification Verified (Name & Yes ) Patient Requires Transmission-Based No Precautions Finger Stick Blood Sugar(mg/dl) (if didnt check indicated): Blood Sugar Stated by Patient Vital Signs Temperature (97.8 F-99.1 F) 97.6 F L Temperature Source Temporal Pulse Rate (60-100) 71 Pulse Location Monitor Respiratory Rate (12-18) 20 H Respiratory rate source Observation Blood Pressure (90/60-120/80) 129/76 H Blood Pressure Mean (mm Hg) 93 Source Monitor History Since Last Visit- (Skip if this is Patient's initial visit) Have you changed medications since your No last visit? Any new allergies or adverse reactions No Had a fall/change in ADL's that may No increase risk of falls Signs or symptoms of abuse and/or No neglect since last visit Has dressing in place as prescribed Yes Has compression in place as prescribed No Has offloadiing in place as prescribed Yes Experienced any changes in pain level or No management Left Footwear No Footwear Right Footwear Regular Shoe Pain Scale: 0-10 Numeric Is Patient Pain Free? Yes - Nurse 1 - General Ulcer Measurement Start: 08/30/21 09:43 Freq: Status: Active Protocol: Activity Type Activity Date Activity User E-Sign Co-Sign Detail Recorded Client Recorded Date Recorded By Document 08/30/21 09:43 DL [id number] 08/30/21 09:51 DL 08/30/21 09:43 Wound Center Nurse 1 10. L plantar -Current Size (cm) - Length 1.1 -Current Size (cm) - Width 0.8 -Current Size (cm) - Depth 1.8 -Total Square Cm 0.88 -Photo Taken No -Undermining/Tunneling Starts (O'clock 7 ) -Undermining/Tunneling Ends (O'clock) 1 -Maximum Distance (cm) 0.6 -Exudate Amt Medium -Exudate Type Serosanguineous -Wound Margin Distinct, Outline Attached -Granulation Amt Medium (34-66%) -Granulation Quality Pale,[place] -Necrosis Amt Medium (34-66%) -Necrotic Tissue Type Adherent Slough -Structure Exposed N/A -Texture (Shannon-wound Skin Appearance) Scarring -Moisture (Shannon-wound Skin Appearance) Maceration -Color (Shannon-wound Skin Appearance) No Abnormality -Temperature (Shannon-wound Skin No Abnormality Appearance) (Pt Warm) -Tenderness on Palpation (Shannon-wound No Skin Appearance) -Ulcer Cleansing Soap and Water -Foul Odor after Cleansing No -Anesthetic Used 4% Lidocaine Solution AMINAH - Nurse 2 - General Ulcer CM Notes Start: 08/30/21 09:43 Freq: Status: Active Protocol: Activity Type Activity Date Activity User E-Sign Co-Sign Detail Recorded Client Recorded Date Recorded By Document 08/30/21 10:07 EULOGIO [id number] 08/30/21 10:09 EULOGIO 08/30/21 10:07 Wound Center Nurse 2 -Time 10:07 -Correct Patient Yes -Correct Side, Site, Position Yes -Correct Procedure Yes -Procedure Performed Yes -Type of Procedure Debridement -Clinical Debridement Subcutaneous -Tissue Removed Subcutaneous -Post Debridement (cm) - Length 1.2 -Post Debridement (cm) - Width 0.8 -Post Debridement (cm) - Depth 1.8 -Total Square (Post) (cm) 0.96 -Area of Debridement (cm) - Length 1.2 -Area of Debridement (cm) - Width 0.8 -Total Square (Area) (cm) 0.96 -Tunneling No -Undermining/Tunneling No -Circular Undermining No -Wound/Ulcer Outcome Not Healed -Ulcer Cleansing Rinsed/ Irrigated with Saline -Foul Odor after Cleansing No -Bioengineered Tissue Yes -Type of Bioengineered Tissue Epicord -Expiration Date 01/25/26 -Product Lot Number [id number] -Percent Used 100 -Lot number of Saline Used [id number] -Bleeding Controlled with Pressure -Treatment Response Procedure Tolerated Well -Offloading Yes -Type of Offloading Surgical Shoe -Assistive Device(s) Wheelchair -Debridement - Subq, 1st 20sq cm No -Apply Skin Sub - 1st 25 sq cm - Feet 1 -Epicord (per sq cm) 6 Pain Scale: 0-10 Numeric Is Patient Pain Free? Yes AMINAH - Nurse 3 - General Ulcer D/C NN Start: 08/30/21 09:43 Freq: Status: Active Protocol: Activity Type Activity Date Activity User E-Sign Co-Sign Detail Recorded Client Recorded Date Recorded By Document 08/30/21 10:20 [facility] [id number] 08/30/21 10:21 [facility] 08/30/21 10:20 Wound Care Nurse 3 10. L plantar -Other Dressing EPI -Primary Dressing Covered/Secured with Dry Gauze & Roll Gauze, Secured with Tape,Other -Other Covering ABD Left -Compression Wrap Arjun Wrap -Other ARJUN TO SECURE Treatment Response Procedure Tolerated Well Pain Scale: 0-10 Numeric Is Patient Pain Free? Yes WC - Visit Discharge Discharge Condition Stable Ambulatory Status Wheelchair Transportation Private Auto Assessment/Plan Assessment/Plan (1) Delayed wound healing: CODE(S): T14.8XXD - Other injury of unspecified body region, subsequent encounter (2) Charcot's joint of left foot: CODE(S): M14.672 - Charcot's joint, left ankle and foot (3) Type 2 diabetes mellitus with diabetic polyneuropathy: CODE(S): E11.42 - Type 2 diabetes mellitus with diabetic polyneuropathy QUALIFIERS: Diabetes mellitus correction insulin use: with correction use Qualified Code(s): E11.42 - Type 2 diabetes mellitus with diabetic polyneuropathy; Z79.4 - application development specialist (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 Debridement was performed excisional subcutaneous manner to the left foot. I recommend the application of advanced wound healing product to optimize healing. This is medically necessary to prevent further limb loss and to promote healing. The indications, benefits, anticipated application management were reviewed. She is familiar with the process. Verbal consent was obtained and epi cord was applied according standard protocol to the plantar left foot. 100% of the product was utilized. This was covered with a wound veil and Steri-Strips. She was advised keep this clean, dry, and intact until follow-up next week. She tolerated this well. Delayed primary closure and reapplication of epicord will be considered next week at follow up. She is reassured no local signs of infection are noted. To monitor. Vascular surgery intervention was performed successfully at [facility] recently with Dr. Pang w/ antioplasty at femoral through adductor into popliteal (balloon). To maintain non weightbearing status with the use of assistive devices (knee roller/walker when able secondary to shoulder fracture) left lower extremity. To use wheelchair with the assistance of the help of her . I talked her about total contact cast application and I evaluated the cast boot in correspondence with her shorter amputated foot status. This appears to be way too large and I ultimately do not recommended due to improper fit and further balance loss risk. Imaging: X-rays were reviewed from prior emergency room visit in 07/2021. To continue nutritional supplementation to optimize healing. She is taking Blue and has also been trying to eat more fresh foods. She is working on more detailed diet planning with her primary care physician. F/u wound care center 1 week. I answered all of her questions. To call sooner or go to the emergency room if her clinical appearance worsens or if she develops systemic signs of illness. She is at risk for amputation and limb loss and systemic illness due to her comorbidities.
--- NOTE | 2021-09-05 15:58 | PCM.WC.PN ---
History of Present Illness Date of Service: 09/05/21 Chief Complaint: Left foot History of Wound: This is 76-year-old female with diabetic neuropathy history of Charcot left foot with rocker-bottom deformity, coronary artery disease and other comorbidities has a recurrent ulcer. She has had delayed healing of her plantar foot ulcer secondary to rocker-bottom Charcot foot deformity, recurrent ulcers and infections. She completed left lower extremity vascular surgery intervention procedure and had this successfully completed at [facility] with Dr. Pang. He denies fever, chill, nausea, vomiting, calf pain, or diarrhea. She uses a wheelchair and has been able to stay off her foot better. She is no longer on antibiotics. She is ready for placement of advanced wound care product and also delayed primary closure if appropriate. Progress of Wound: improving base Objective Data Objective Data Vital Signs: Vital Signs Temp Pulse Resp BP 97.6 F L 71 20 H 129/76 H 08/30/21 09:43 08/30/21 09:43 08/30/21 09:43 08/30/21 09:43 Physical Exam Narrative Left foot: Chopart amputation plantar central slight lateral skin discontinuity with deep probing. There is adipose tissue exposed subcutaneous tissue. There is no direct probe to bone, necrosis, maceration, odor, erythema, or purulence noted. There is no cellulitis, no fluctuance or bogginess to the left foot. Negative Claudio and Elizondo sign left. Compartments remain soft to palpate left lower extremity. DP 2/4, left. deep probing noted. ulcer is mobile and adjacent skin is flexible Debridement Note Debridement Note Wound debrided: plantar left foot Wound Grade/Stage: 2 Type of Debridement: Excisional debridement Anesthesia Used: 4% Lidocaine Solution Depth: in the subcutaneous layer Percentage of wound debrided: 100 Instrument Used: #15 blade Tissue Removed: fibrous, devitalized subcutaneous, biofilm, slough Severity: Fat Layer Exposed Amount of bleeding with debridement: Mild Bleeding Controlled with: Pressure Patient tolerated procedure: Patient tolerated procedure well Post-Debridement Measurements and Additional Note: Post-Debridement Measurements/Treatment WC - Nurse 1 - General Ulcer Assessment Start: 08/30/21 09:43 Freq: Status: Active Protocol: EUGENE Activity Type Activity Date Activity User E-Sign Co-Sign Detail Recorded Client Recorded Date Recorded By Document 08/30/21 09:43 JACLYN [id number] 08/30/21 09:51 DL 08/30/21 09:43 WC - Today's Visit Information Type of service Follow-up Visit (Physician/PATTERN CLERK ) Arrival Mode Wheelchair Transfer Assistance Manual Transfer Assist (Other) x1 Patient Identification Verified (Name & Yes ) Patient Requires Transmission-Based No Precautions Finger Stick Blood Sugar(mg/dl) (if didnt check indicated): Blood Sugar Stated by Patient Vital Signs Temperature (97.8 F-99.1 F) 97.6 F L Temperature Source Temporal Pulse Rate (60-100) 71 Pulse Location Monitor Respiratory Rate (12-18) 20 H Respiratory rate source Observation Blood Pressure (90/60-120/80) 129/76 H Blood Pressure Mean (mm Hg) 93 Source Monitor History Since Last Visit- (Skip if this is Patient's initial visit) Have you changed medications since your No last visit? Any new allergies or adverse reactions No Had a fall/change in ADL's that may No increase risk of falls Signs or symptoms of abuse and/or No neglect since last visit Has dressing in place as prescribed Yes Has compression in place as prescribed No Has offloadiing in place as prescribed Yes Experienced any changes in pain level or No management Left Footwear No Footwear Right Footwear Regular Shoe Pain Scale: 0-10 Numeric Is Patient Pain Free? Yes - Nurse 1 - General Ulcer Measurement Start: 08/30/21 09:43 Freq: Status: Active Protocol: Activity Type Activity Date Activity User E-Sign Co-Sign Detail Recorded Client Recorded Date Recorded By Document 08/30/21 09:43 [id number] 08/30/21 09:51 08/30/21 09:43 Wound Center Nurse 1 10. L plantar -Current Size (cm) - Length 1.1 -Current Size (cm) - Width 0.8 -Current Size (cm) - Depth 1.8 -Total Square Cm 0.88 -Photo Taken No -Undermining/Tunneling Starts (O'clock 7 ) -Undermining/Tunneling Ends (O'clock) 1 -Maximum Distance (cm) 0.6 -Exudate Amt Medium -Exudate Type Serosanguineous -Wound Margin Distinct, Outline Attached -Granulation Amt Medium (34-66%) -Granulation Quality Pale,[place] -Necrosis Amt Medium (34-66%) -Necrotic Tissue Type Adherent Slough -Structure Exposed N/A -Texture (Shannon-wound Skin Appearance) Scarring -Moisture (Shannon-wound Skin Appearance) Maceration -Color (Shannon-wound Skin Appearance) No Abnormality -Temperature (Shannon-wound Skin No Abnormality Appearance) (Pt Warm) -Tenderness on Palpation (Shannon-wound No Skin Appearance) -Ulcer Cleansing Soap and Water -Foul Odor after Cleansing No -Anesthetic Used 4% Lidocaine Solution WC - Nurse 2 - General Ulcer CM Notes Start: 08/30/21 09:43 Freq: Status: Active Protocol: Activity Type Activity Date Activity User E-Sign Co-Sign Detail Recorded Client Recorded Date Recorded By Document 08/30/21 10:07 [id number] 08/30/21 10:09 Document 09/05/21 15:52 [id number] 09/05/21 15:53 08/30/21 09/05/21 10:07 15:52 Wound Center Nurse 2 10. L plantar -Time 10:07 15:52 -Correct Patient Yes Yes -Correct Side, Site, Position Yes Yes -Correct Procedure Yes Yes -Procedure Performed Yes Yes -Type of Procedure Debridement Debridement -Clinical Debridement Subcutaneous Subcutaneous -Tissue Removed Subcutaneous Subcutaneous -Post Debridement (cm) - Length 1.2 1.6 -Post Debridement (cm) - Width 0.8 1.6 -Post Debridement (cm) - Depth 1.8 1.3 -Total Square (Post) (cm) 0.96 2.56 -Area of Debridement (cm) - Length 1.2 1.6 -Area of Debridement (cm) - Width 0.8 1.6 -Total Square (Area) (cm) 0.96 2.56 -Tunneling No No -Undermining/Tunneling No No -Circular Undermining No No -Wound/Ulcer Outcome Not Healed Not Healed -Ulcer Cleansing Rinsed/ Rinsed/ Irrigated with Irrigated with Saline Saline -Foul Odor after Cleansing No No -Bioengineered Tissue Yes Yes -Type of Bioengineered Tissue Epicord Epicord -Expiration Date 01/25/26 01/25/26 -Product Lot Number [id number] -Percent Used 100 100 -Lot number of Saline Used [id number] -Bleeding Controlled with Pressure Pressure -Treatment Response Procedure Procedure Tolerated Well Tolerated Well -Offloading Yes Yes -Type of Offloading Surgical Shoe Knee Walker -Assistive Device(s) Wheelchair -Debridement - Subq, 1st 20sq cm No No -Apply Skin Sub - 1st 25 sq cm - Feet 1 1 -Epicord (per sq cm) 6 6 Pain Scale: 0-10 Numeric Is Patient Pain Free? Yes Yes - Nurse 3 - General Ulcer D/C NN Start: 08/30/21 09:43 Freq: Status: Active Protocol: Activity Type Activity Date Activity User E-Sign Co-Sign Detail Recorded Client Recorded Date Recorded By Document 08/30/21 10:20 [facility] [id number] 08/30/21 10:21 [facility] 08/30/21 10:20 Wound Care Nurse 3 10. L plantar -Other Dressing EPI -Primary Dressing Covered/Secured with Dry Gauze & Roll Gauze, Secured with Tape,Other -Other Covering ABD Left -Compression Wrap Arjun Wrap -Other ARJUN TO SECURE Treatment Response Procedure Tolerated Well Pain Scale: 0-10 Numeric Is Patient Pain Free? Yes - Visit Discharge Discharge Condition Stable Ambulatory Status Wheelchair Transportation Private Auto Assessment/Plan Assessment/Plan (1) Delayed wound healing: CODE(S): T14.8XXD - Other injury of unspecified body region, subsequent encounter (2) Charcot's joint of left foot: CODE(S): M14.672 - Charcot's joint, left ankle and foot (3) Type 2 diabetes mellitus with diabetic polyneuropathy: CODE(S): E11.42 - Type 2 diabetes mellitus with diabetic polyneuropathy QUALIFIERS: Diabetes mellitus alf insulin use: with alf use Qualified Code(s): E11.42 - Type 2 diabetes mellitus with diabetic polyneuropathy; Z79.4 - residential (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 Debridement was performed excisional subcutaneous manner to the left foot. I recommend the application of advanced wound healing product to optimize healing. This is medically necessary to prevent further limb loss and to promote healing. The indications, benefits, anticipated application management were reviewed. She is familiar with the process. Verbal consent was obtained and epi cord was applied according standard protocol to the plantar left foot. 100% of the product was utilized. This was covered with a wound veil and Steri-Strips after the additional delayed primary closure was performed. She was advised keep this clean, dry, and intact until follow-up next week. She tolerated this well. Delayed primary closure was performed today with horizontal mattress and vertical mattress technique also after the epicord was paplied to the deep wound. Verbal consent was obtained. She tolerated this well. She was advised to keep dressing clean, dry and intact until follow up next week. She is reassured no local signs of infection are noted. To monitor. Vascular surgery intervention was performed successfully at [facility] recently with Dr. Pang w/ antioplasty at femoral through adductor into popliteal (balloon). To maintain non weightbearing status with the use of assistive devices (knee roller/walker when able secondary to shoulder fracture) left lower extremity. To use wheelchair with the assistance of the help of her . I talked her about total contact cast application and I evaluated the cast boot in correspondence with her shorter amputated foot status. This appears to be way too large and I ultimately do not recommended due to improper fit and further balance loss risk. Imaging: X-rays were reviewed from prior emergency room visit in 07/2021. To continue nutritional supplementation to optimize healing. She is taking Blue and has also been trying to eat more fresh foods. She is working on more detailed diet planning with her primary care physician. F/u wound care center 1 week. I answered all of her questions. To call sooner or go to the emergency room if her clinical appearance worsens or if she develops systemic signs of illness. She is at risk for amputation and limb loss and systemic illness due to her comorbidities.
[2021-09-13 09:48] VITALS: TEMP 36.3
--- NOTE | 2021-09-13 10:52 | PCM.WC.PN ---
History of Present Illness Date of Service: 09/13/21 Chief Complaint: Left foot History of Wound: This is 76-year-old female with diabetic neuropathy history of Charcot left foot with rocker-bottom deformity, coronary artery disease and other comorbidities has a recurrent ulcer. She has had delayed healing of her plantar foot ulcer secondary to rocker-bottom Charcot foot deformity, recurrent ulcers and infections. She completed left lower extremity vascular surgery intervention procedure and had this successfully completed at [facility] with Dr. Pang. He denies fever, chill, nausea, vomiting, calf pain, or diarrhea. She uses a wheelchair however reports she has to temporarily stand on her foot each time she uses the restroom. She is no longer on antibiotics. She had delayed primary closure performed last week and reports some continued drainage in which her helped her change the secondary dressing Progress of Wound: stable delayed closure site Objective Data Objective Data Vital Signs: Vital Signs Temp Pulse Resp BP 97.3 F L 71 20 H 129/76 H 09/13/21 09:48 08/30/21 09:43 08/30/21 09:43 08/30/21 09:43 Physical Exam Narrative Left foot: Chopart amputation plantar central here is no direct probe to bone, necrosis, odor, erythema, or purulence noted. There is no cellulitis, no fluctuance or bogginess to the left foot. Negative Claudio and Elizondo sign left. Compartments remain soft to palpate left lower extremity. DP 2/4, left. deep probing noted. Delayed primary closure site is intact with some central gapping and very mild adjacent maceration. Debridement Note Debridement Note Post-Debridement Measurements and Additional Note: Post-Debridement Measurements/Treatment - Nurse 1 - General Ulcer Assessment Start: 08/30/21 09:43 Freq: Status: Active Protocol: EUGENE Activity Type Activity Date Activity User E-Sign Co-Sign Detail Recorded Client Recorded Date Recorded By Document 08/30/21 09:43 DL [id number] 08/30/21 09:51 DL Document 09/13/21 09:48 AK [id number] 09/13/21 09:50 AK 08/30/21 09/13/21 09:43 09:48 - Today's Visit Information Type of service Follow-up Visit Follow-up Visit (Physician/[facility] [employer] [facility] (Physician/[facility] [employer] [facility] ) ) Arrival Mode Wheelchair Wheelchair Transfer Assistance Manual Transfer Assist (Other) x1 Patient Identification Verified (Name & Yes Yes ) Patient Requires Transmission-Based No No Precautions Safety Precautions NA Finger Stick Blood Sugar(mg/dl) (if didnt check indicated): Blood Sugar Stated by Patient Vital Signs Temperature (97.8 F-99.1 F) 97.6 F L 97.3 F L Temperature Source Temporal Temporal Pulse Rate (60-100) 71 Pulse Location Monitor Respiratory Rate (12-18) 20 H Respiratory rate source Observation Blood Pressure (90/60-120/80) 129/76 H Blood Pressure Mean (mm Hg) 93 Source Monitor History Since Last Visit- (Skip if this is Patient's initial visit) Have you changed medications since your No No last visit? Any new allergies or adverse reactions No No Had a fall/change in ADL's that may No No increase risk of falls Signs or symptoms of abuse and/or No No neglect since last visit Have you been in the hospital since your No last visit? Has dressing in place as prescribed Yes Yes Has compression in place as prescribed No No Has offloadiing in place as prescribed Yes Yes Experienced any changes in pain level or No No management Left Footwear No Footwear Right Footwear Regular Shoe Regular Shoe Pain Scale: 0-10 Numeric Is Patient Pain Free? Yes Yes WC - Nurse 1 - General Ulcer Measurement Start: 08/30/21 09:43 Freq: Status: Active Protocol: Activity Type Activity Date Activity User E-Sign Co-Sign Detail Recorded Client Recorded Date Recorded By Document 08/30/21 09:43 DL [id number] 08/30/21 09:51 DL Document 09/13/21 09:48 AK [id number] 09/13/21 09:50 AK 08/30/21 09/13/21 09:43 09:48 Wound Center Nurse 1 10. L plantar -Combined with other wound No -Current Size (cm) - Length 1.1 1.5 -Current Size (cm) - Width 0.8 0.2 -Current Size (cm) - Depth 1.8 0.2 -Total Square Cm 0.88 0.30 -Photo Taken No No -Tunneling No -Undermining/Tunneling No -Undermining/Tunneling Starts (O'clock 7 ) -Undermining/Tunneling Ends (O'clock) 1 -Maximum Distance (cm) 0.6 -Circular Undermining No -Exudate Amt Medium Large -Exudate Type Serosanguineous Serosanguineous -Wound Margin Distinct, Distinct, Outline Outline Attached Attached -Granulation Amt Medium (34-66%) Medium (34-66%) -Granulation Quality Pale,[place] -Slough/Fibrin Yes -Necrosis Amt Medium (34-66%) Medium (34-66%) -Necrotic Tissue Type Adherent Slough Adherent Slough -Structure Exposed N/A N/A -Texture (Shannon-wound Skin Appearance) Scarring No Abnormality, Assessed -Moisture (Shannon-wound Skin Appearance) Maceration Assessed, Maceration -Color (Shannon-wound Skin Appearance) No Abnormality No Abnormality, Assessed -Temperature (Shannon-wound Skin No Abnormality No Abnormality Appearance) (Pt Warm) (Pt Warm) -Tenderness on Palpation (Shannon-wound No No Skin Appearance) -Ulcer Cleansing Soap and Water Soap and Water -Foul Odor after Cleansing No No -Anesthetic Used 4% Lidocaine 4% Lidocaine Solution Solution WC - Nurse 2 - General Ulcer CM Notes Start: 08/30/21 09:43 Freq: Status: Active Protocol: Activity Type Activity Date Activity User E-Sign Co-Sign Detail Recorded Client Recorded Date Recorded By Document 08/30/21 10:07 [id number] 08/30/21 10:09 Document 09/05/21 15:52 [id number] 09/05/21 15:53 Document 09/13/21 10:08 [id number] 09/13/21 10:08 08/30/21 09/05/21 09/13/21 10:07 15:52 10:08 Wound Center Nurse 2 10. L plantar -Time 10:07 15:52 -Correct Patient Yes Yes No -Correct Side, Site, Position Yes Yes No -Correct Procedure Yes Yes No -Procedure Performed Yes Yes No -Type of Procedure Debridement Debridement -Clinical Debridement Subcutaneous Subcutaneous -Tissue Removed Subcutaneous Subcutaneous -Post Debridement (cm) - Length 1.2 1.6 -Post Debridement (cm) - Width 0.8 1.6 -Post Debridement (cm) - Depth 1.8 1.3 -Total Square (Post) (cm) 0.96 2.56 -Area of Debridement (cm) - Length 1.2 1.6 -Area of Debridement (cm) - Width 0.8 1.6 -Total Square (Area) (cm) 0.96 2.56 -Tunneling No No -Undermining/Tunneling No No -Circular Undermining No No -Wound/Ulcer Outcome Not Healed Not Healed Not Healed -Ulcer Cleansing Rinsed/ Rinsed/ Irrigated with Irrigated with Saline Saline -Foul Odor after Cleansing No No -Bioengineered Tissue Yes Yes -Type of Bioengineered Tissue Epicord Epicord -Expiration Date 01/25/26 01/25/26 -Product Lot Number [id number] -Percent Used 100 100 -Lot number of Saline Used [id number] -Bleeding Controlled with Pressure Pressure -Treatment Response Procedure Procedure Tolerated Well Tolerated Well -Offloading Yes Yes Yes -Type of Offloading Surgical Shoe Knee Walker Knee Walker -Assistive Device(s) Wheelchair -Debridement - Subq, 1st 20sq cm No No -Apply Skin Sub - 1st 25 sq cm - Feet 1 1 -Epicord (per sq cm) 6 6 Pain Scale: 0-10 Numeric Is Patient Pain Free? Yes Yes Yes WC - Nurse 3 - General Ulcer D/C NN Start: 08/30/21 09:43 Freq: Status: Active Protocol: Activity Type Activity Date Activity User E-Sign Co-Sign Detail Recorded Client Recorded Date Recorded By Document 08/30/21 10:20 [facility] [id number] 08/30/21 10:21 [facility] Document 09/05/21 16:02 MW [id number] 09/05/21 16:02 MW Document 09/13/21 10:24 AK [id number] 09/13/21 10:25 AK 08/30/21 09/05/21 09/13/21 10:20 16:02 10:24 Wound Care Nurse 3 10. L plantar -Ulcer Cleansing Soap and Water -Foul Odor after Cleansing No -Negative Pressure Wound Therapy N/A -Other Dressing EPI ABD -Primary Dressing Covered/Secured with Dry Gauze & Dry Gauze & Dry Gauze & Roll Gauze, Roll Gauze, Roll Gauze, Secured with Secured with Secured with Tape,Other Tape Tape -Other Covering ABD abd pad Left -Lotion applied to leg before No compression wrap -Compression Wrap Arjun Wrap Arjun Wrap Arjun Wrap -Other ARJUN TO SECURE Treatment Response Procedure Procedure Tolerated Well Tolerated Well Pain Scale: 0-10 Numeric Is Patient Pain Free? Yes Yes Yes Teaching: Wound Center Dressing Your Wound -Person Taught Patient -Teaching Method Discussion -Response to teaching Verbalize understanding WC - Visit Discharge Discharge Condition Stable Stable Stable Ambulatory Status Wheelchair Wheelchair Wheelchair Transportation Private Auto Private Auto Private Auto Accompanied by son Medication Reconcilliation completed & No Yes provided to patient/care provider Clinical Summary of Care Provided Yes Yes Assessment/Plan Assessment/Plan (1) Delayed wound healing: CODE(S): T14.8XXD - Other injury of unspecified body region, subsequent encounter (2) Charcot's joint of left foot: CODE(S): M14.672 - Charcot's joint, left ankle and foot (3) Type 2 diabetes mellitus with diabetic polyneuropathy: CODE(S): E11.42 - Type 2 diabetes mellitus with diabetic polyneuropathy QUALIFIERS: 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 Debridement was not performed. Reinforcement retention sutures were applied after verbal consent and Betadine preparation was performed. This was performed with 2-0 Prolene. She is reassured no local signs of infection are noted. She was advised to keep dressing clean, dry and intact until follow up next week. She is reassured no local signs of infection are noted. To monitor. Vascular surgery intervention was performed successfully at [facility] recently with Dr. Pang w/ antioplasty at femoral through adductor into popliteal (balloon). To maintain non weightbearing status with the use of assistive devices (knee roller/walker when able secondary to shoulder fracture) left lower extremity. To use wheelchair with the assistance of the help of her . Imaging: X-rays were reviewed from prior emergency room visit in 07/2021. To continue nutritional supplementation to optimize healing. She is taking Blue and has also been trying to eat more fresh foods. She is working on more detailed diet planning with her primary care physician. F/u wound care center 1 week. I answered all of her questions. To call sooner or go to the emergency room if her clinical appearance worsens or if she develops systemic signs of illness. She is at risk for amputation and limb loss and systemic illness due to her comorbidities. The medical decision making level is moderate. There is noted moderate risk of morbidity after considering this treatment plan and diagnostic data. Considerations were given to prescription management, decisions regarding surgical options, or social determinants of health. The problems addressed require a moderate decision making level which includes one or more chronic illnesses (w/ exacerbation, progression, or side effects), two or more stable chronic illnesses, one undiagnosed new problem w/ uncertain prognosis, one acute illness with systemic symptoms, or one acute complicated injury.
[2021-09-20 09:41] VITALS: BP 128/47; PULSE 70; RESP 20; TEMP 35.9
--- NOTE | 2021-09-20 10:46 | PCM.WC.PN ---
History of Present Illness Date of Service: 09/20/21 Chief Complaint: Left foot History of Wound: This is 76-year-old female with diabetic neuropathy history of Charcot left foot with rocker-bottom deformity, coronary artery disease and other comorbidities has a recurrent ulcer. She has had delayed healing of her plantar foot ulcer secondary to rocker-bottom Charcot foot deformity, recurrent ulcers and infections. She completed left lower extremity vascular surgery intervention procedure and had this successfully completed at [facility] with Dr. Pang. He denies fever, chill, nausea, vomiting, calf pain, or diarrhea. She uses a wheelchair however reports she has to temporarily stand on her foot each time she uses the restroom. She has decreased this. She is no longer on antibiotics. She had increased drainage earlier this week and was [facility]. She transition to Dakin's and this has reduced maceration. She denies odor. Progress of Wound: Stable with reduction in drainage and maceration Objective Data Objective Data Vital Signs: Vital Signs Temp Pulse Resp BP 96.6 F L 70 20 H 128/47 H 09/20/21 09:41 09/20/21 09:41 09/20/21 09:41 09/20/21 09:41 Physical Exam Narrative Left foot: Chopart amputation plantar central here is no direct probe to bone, necrosis, odor, erythema, or purulence noted. There is no cellulitis, no fluctuance or bogginess to the left foot. Negative Claudio and Elizondo sign left. Compartments remain soft to palpate left lower extremity. DP 2/4, left. deep probing noted. Delayed primary closure site is intact with some central gapping and very mild adjacent maceration (apr compared to saturday examination). Debridement Note Debridement Note Post-Debridement Measurements and Additional Note: Post-Debridement Measurements/Treatment AMINAH - Nurse 1 - General Ulcer Assessment Start: 08/30/21 09:43 Freq: Status: Active Protocol: EUGENE Activity Type Activity Date Activity User E-Sign Co-Sign Detail Recorded Client Recorded Date Recorded By Document 08/30/21 09:43 DL [id number] 08/30/21 09:51 DL Document 09/13/21 09:48 AK [id number] 09/13/21 09:50 AK Document 09/20/21 09:41 DL [id number] 09/20/21 09:48 DL Edit Result 09/20/21 09:41 DL (1) [id number] 09/20/21 09:49 DL (1) Pulse Rate (60-100) => 70 Pulse Location => Monitor Blood Pressure (90/60-120/80) => 128/47 H Blood Pressure Mean (mm Hg) => 74 08/30/21 09/13/21 09/20/21 09:43 09:48 09:41 WC - Today's Visit Information Type of service Follow-up Visit Follow-up Visit Follow-up Visit (Physician/SHUTTLE FITTING SUPERVISOR (Physician/SHUTTLE FITTING SUPERVISOR (Physician/SHUTTLE FITTING SUPERVISOR ) ) ) Arrival Mode Wheelchair Wheelchair Wheelchair Transfer Assistance Manual Manual Transfer Assist (Other) x1 x1 Patient Identification Verified (Name & Yes Yes Yes ) Patient Requires Transmission-Based No No No Precautions Safety Precautions NA Finger Stick Blood Sugar(mg/dl) (if didnt check didnt check indicated): Blood Sugar Stated by Stated by Patient Patient Vital Signs Temperature (97.8 F-99.1 F) 97.6 F L 97.3 F L 96.6 F L Temperature Source Temporal Temporal Temporal Pulse Rate (60-100) 71 70 Pulse Location Monitor Monitor Respiratory Rate (12-18) 20 H 20 H Respiratory rate source Observation Blood Pressure (90/60-120/80) 129/76 H 128/47 H Blood Pressure Mean (mm Hg) 93 74 Source Monitor Comment Sutures intact History Since Last Visit- (Skip if this is Patient's initial visit) Have you changed medications since your No No No last visit? Any new allergies or adverse reactions No No No Had a fall/change in ADL's that may No No No increase risk of falls Signs or symptoms of abuse and/or No No No neglect since last visit Have you been in the hospital since your No No last visit? Has dressing in place as prescribed Yes Yes Yes Has compression in place as prescribed No No No Has offloadiing in place as prescribed Yes Yes N/A Experienced any changes in pain level or No No No management Left Footwear No Footwear Right Footwear Regular Shoe Regular Shoe No Footwear Pain Scale: 0-10 Numeric Is Patient Pain Free? Yes Yes Yes - Nurse 1 - General Ulcer Measurement Start: 08/30/21 09:43 Freq: Status: Active Protocol: Activity Type Activity Date Activity User E-Sign Co-Sign Detail Recorded Client Recorded Date Recorded By Document 08/30/21 09:43 DL [id number] 08/30/21 09:51 DL Document 09/13/21 09:48 AK [id number] 09/13/21 09:50 AK Document 09/20/21 09:41 DL [id number] 09/20/21 09:48 DL 08/30/21 09/13/21 09/20/21 09:43 09:48 09:41 Wound Center Nurse 1 10. L plantar -Combined with other wound No -Current Size (cm) - Length 1.1 1.5 0.1 -Current Size (cm) - Width 0.8 0.2 0.1 -Current Size (cm) - Depth 1.8 0.2 0.1 -Total Square Cm 0.88 0.30 0.01 -Photo Taken No No No -Tunneling No -Undermining/Tunneling No -Undermining/Tunneling Starts (O'clock 7 ) -Undermining/Tunneling Ends (O'clock) 1 -Maximum Distance (cm) 0.6 -Circular Undermining No -Exudate Amt Medium Large Small -Exudate Type Serosanguineous Serosanguineous Serosanguineous -Wound Margin Distinct, Distinct, Distinct, Outline Outline Outline Attached Attached Attached -Granulation Amt Medium (34-66%) Medium (34-66%) Large (67-100%) -Granulation Quality Pale,[place] -Slough/Fibrin Yes -Necrosis Amt Medium (34-66%) Medium (34-66%) None Present (0 %) -Necrotic Tissue Type Adherent Slough Adherent Slough -Structure Exposed N/A N/A N/A -Texture (Shannon-wound Skin Appearance) Scarring No Abnormality, Localized Edema Assessed ,Scarring -Moisture (Shannon-wound Skin Appearance) Maceration Assessed, Maceration Maceration -Color (Shannon-wound Skin Appearance) No Abnormality No Abnormality, No Abnormality Assessed -Temperature (Shannon-wound Skin No Abnormality No Abnormality No Abnormality Appearance) (Pt Warm) (Pt Warm) (Pt Warm) -Tenderness on Palpation (Shannon-wound No No No Skin Appearance) -Ulcer Cleansing Soap and Water Soap and Water -Foul Odor after Cleansing No No No -Anesthetic Used 4% Lidocaine 4% Lidocaine 4% Lidocaine Solution Solution Solution WC - Nurse 2 - General Ulcer CM Notes Start: 08/30/21 09:43 Freq: Status: Active Protocol: Activity Type Activity Date Activity User E-Sign Co-Sign Detail Recorded Client Recorded Date Recorded By Document 08/30/21 10:07 [id number] 08/30/21 10:09 Document 09/05/21 15:52 [id number] 09/05/21 15:53 Document 09/13/21 10:08 [id number] 09/13/21 10:08 Document 09/20/21 10:13 [id number] 09/20/21 10:16 08/30/21 09/05/21 09/13/21 10:07 15:52 10:08 Wound Center Nurse 2 10. L plantar -Time 10:07 15:52 -Correct Patient Yes Yes No -Correct Side, Site, Position Yes Yes No -Correct Procedure Yes Yes No -Procedure Performed Yes Yes No -Type of Procedure Debridement Debridement -Clinical Debridement Subcutaneous Subcutaneous -Tissue Removed Subcutaneous Subcutaneous -Post Debridement (cm) - Length 1.2 1.6 -Post Debridement (cm) - Width 0.8 1.6 -Post Debridement (cm) - Depth 1.8 1.3 -Total Square (Post) (cm) 0.96 2.56 -Area of Debridement (cm) - Length 1.2 1.6 -Area of Debridement (cm) - Width 0.8 1.6 -Total Square (Area) (cm) 0.96 2.56 -Tunneling No No -Undermining/Tunneling No No -Circular Undermining No No -Wound/Ulcer Outcome Not Healed Not Healed Not Healed -Ulcer Cleansing Rinsed/ Rinsed/ Irrigated with Irrigated with Saline Saline -Foul Odor after Cleansing No No -Bioengineered Tissue Yes Yes -Type of Bioengineered Tissue Epicord Epicord -Expiration Date 01/25/26 01/25/26 -Product Lot Number [id number] -Percent Used 100 100 -Lot number of Saline Used [id number] -Bleeding Controlled with Pressure Pressure -Treatment Response Procedure Procedure Tolerated Well Tolerated Well -Offloading Yes Yes Yes -Type of Offloading Surgical Shoe Knee Walker Knee Walker -Assistive Device(s) Wheelchair -Debridement - Subq, 1st 20sq cm No No -Apply Skin Sub - 1st 25 sq cm - Feet 1 1 -Epicord (per sq cm) 6 6 Pain Scale: 0-10 Numeric Is Patient Pain Free? Yes Yes Yes 09/20/21 10:13 Wound Center Nurse 2 10. L plantar -Time -Correct Patient No -Correct Side, Site, Position No -Correct Procedure No -Procedure Performed No -Type of Procedure -Clinical Debridement -Tissue Removed -Post Debridement (cm) - Length -Post Debridement (cm) - Width -Post Debridement (cm) - Depth -Total Square (Post) (cm) -Area of Debridement (cm) - Length -Area of Debridement (cm) - Width -Total Square (Area) (cm) -Tunneling -Undermining/Tunneling -Circular Undermining -Wound/Ulcer Outcome Not Healed -Ulcer Cleansing -Foul Odor after Cleansing -Bioengineered Tissue -Type of Bioengineered Tissue -Expiration Date -Product Lot Number -Percent Used -Lot number of Saline Used -Bleeding Controlled with -Treatment Response -Offloading -Type of Offloading -Assistive Device(s) -Debridement - Subq, 1st 20sq cm -Apply Skin Sub - 1st 25 sq cm - Feet -Epicord (per sq cm) Pain Scale: 0-10 Numeric Is Patient Pain Free? Yes WC - Nurse 3 - General Ulcer D/C NN Start: 08/30/21 09:43 Freq: Status: Active Protocol: Activity Type Activity Date Activity User E-Sign Co-Sign Detail Recorded Client Recorded Date Recorded By Document 08/30/21 10:20 [facility] [id number] 08/30/21 10:21 [facility] Document 09/05/21 16:02 MW [id number] 09/05/21 16:02 MW Document 09/13/21 10:24 AK [id number] 09/13/21 10:25 AK Document 09/20/21 10:26 [facility] [id number] 09/20/21 10:27 [facility] 08/30/21 09/05/21 09/13/21 10:20 16:02 10:24 Wound Care Nurse 3 10. L plantar -Ulcer Cleansing Soap and Water -Foul Odor after Cleansing No -Negative Pressure Wound Therapy N/A -Other Dressing EPI ABD -Primary Dressing Covered/Secured with Dry Gauze & Dry Gauze & Dry Gauze & Roll Gauze, Roll Gauze, Roll Gauze, Secured with Secured with Secured with Tape,Other Tape Tape -Other Covering ABD abd pad Left -Lotion applied to leg before No compression wrap -Compression Wrap Arjun Wrap Arjun Wrap Arjun Wrap -Other ARJUN TO SECURE Treatment Response Procedure Procedure Tolerated Well Tolerated Well Pain Scale: 0-10 Numeric Is Patient Pain Free? Yes Yes Yes Teaching: Wound Center Dressing Your Wound -Person Taught Patient -Teaching Method Discussion -Response to teaching Verbalize understanding WC - Visit Discharge Discharge Condition Stable Stable Stable Ambulatory Status Wheelchair Wheelchair Wheelchair Transportation Private Auto Private Auto Private Auto Accompanied by son Medication Reconcilliation completed & No Yes provided to patient/care provider Clinical Summary of Care Provided Yes Yes 09/20/21 10:26 Wound Care Nurse 3 10. L plantar -Ulcer Cleansing Rinsed/ Irrigated with Saline -Foul Odor after Cleansing No -Negative Pressure Wound Therapy -Other Dressing -Primary Dressing Covered/Secured with Dry Gauze & Roll Gauze, Secured with Tape -Other Covering pt to use dakins moistened gauze at home Left -Lotion applied to leg before compression wrap -Compression Wrap Arjun Wrap -Other arjun to secure Treatment Response Procedure Tolerated Well Pain Scale: 0-10 Numeric Is Patient Pain Free? Yes Teaching: Wound Center Dressing Your Wound -Person Taught -Teaching Method -Response to teaching WC - Visit Discharge Discharge Condition Stable Ambulatory Status Wheelchair Transportation Private Auto Accompanied by Medication Reconcilliation completed & provided to patient/care provider Clinical Summary of Care Provided Assessment/Plan Assessment/Plan (1) Delayed wound healing: CODE(S): T14.8XXD - Other injury of unspecified body region, subsequent encounter (2) Charcot's joint of left foot: CODE(S): M14.672 - Charcot's joint, left ankle and foot (3) Type 2 diabetes mellitus with diabetic polyneuropathy: CODE(S): E11.42 - Type 2 diabetes mellitus with diabetic polyneuropathy QUALIFIERS: Diabetes mellitus rn long term care insulin use: with rn long term care use Qualified Code(s): E11.42 - Type 2 diabetes mellitus with diabetic polyneuropathy; Z79.4 - FPC (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 Debridement was not performed. She is reassured no local signs of infection are noted. Maceration as compared to earlier this week. To monitor. To change dressing daily with Dakin wet-to-dry. She seems to be responding well to this so far. Vascular surgery intervention was performed successfully at [facility] recently with Dr. Pang w/ antioplasty at femoral through adductor into popliteal (balloon). To maintain non weightbearing status with the use of assistive devices (knee roller/walker when able secondary to shoulder fracture) left lower extremity. To use wheelchair with the assistance of the help of her . Imaging: X-rays were reviewed from prior emergency room visit in 07/2021. To continue nutritional supplementation to optimize healing. She is taking Blue and has also been trying to eat more fresh foods. She is working on more detailed diet planning with her primary care physician. F/u wound care center 1 week. I answered all of her questions. To call sooner or go to the emergency room if her clinical appearance worsens or if she develops systemic signs of illness. She is at risk for amputation and limb loss and systemic illness due to her comorbidities. 20 minutes was spent on this encounter. This included face to face and non face to face care including preparing for the visit, reviewing the history, performing the exam, counseling and providing education to the patient, family, or caregiver, ordering medications/test/ procedures if indicated as documented, communicating with other healthcare providers, documenting information in the medical record, interpreting / sharing this information when indicated as documented, and care coordination.
== END 2021-09-23 23:59 | disposition home or self-care (01) ==
LOC: WC 09:30
PROVIDERS: PCP Family Medicine; Visit Provider Podiatrist
DX: E11.621 Type 2 diabetes mellitus with foot ulcer (principal); L97.422 Non-pressure chronic ulcer of left heel and midfoot with fat layer exposed; L97.523 Non-pressure chronic ulcer of other part of left foot with necrosis of muscle; E11.610 Type 2 diabetes mellitus with diabetic neuropathic arthropathy; E11.42 Type 2 diabetes mellitus with diabetic polyneuropathy; I25.10 Atherosclerotic heart disease of native coronary artery without angina pectoris; Z79.4 Long term (current) use of insulin; Z79.82 Long term (current) use of aspirin; Z79.02 Long term (current) use of antithrombotics/antiplatelets; Z79.899 Other long term (current) drug therapy
CPT/HCPCS: 15275; 99213; Q4187; G0463

== ENCOUNTER 2021-10-18 09:45 | Outpatient (RCR) | payer MEDICARE, OTHER, SELFPAY ==
[2021-09-24 00:42] VITALS: BP 128/47; PULSE 70; RESP 20; TEMP 35.9
[2021-09-27 09:35] VITALS: TEMP 35.7
--- NOTE | 2021-09-27 10:31 | PN.PCM_ITS ---
History of Present Illness Date of Service: 09/27/21 Chief Complaint: Left foot History of Wound: This is 76-year-old female with diabetic neuropathy history of Charcot left foot with rocker-bottom deformity, coronary artery disease and other comorbidities has a recurrent ulcer. She has had delayed healing of her plantar foot ulcer secondary to rocker-bottom Charcot foot deformity, recurrent ulcers and infections. She completed left lower extremity vascular surgery intervention procedure and had this successfully completed at [facility] with Dr. Pang. He denies fever, chill, nausea, vomiting, calf pain, or diarrhea. She uses a wheelchair however reports she has to temporarily stand on her foot each time she uses the restroom at least several times a day. She has changed the dressing daily as advised with Lorene's and this has reduced maceration. She denies odor. Progress of Wound: stable Objective Data Objective Data Vital Signs: Vital Signs Temp Pulse Resp BP 96.2 F L 70 20 H 128/47 H 09/27/21 09:35 09/24/21 00:42 09/24/21 00:42 09/24/21 00:42 Physical Exam Narrative Left foot: Chopart amputation plantar central here is no direct probe to bone, necrosis, odor, erythema, or purulence noted. There is no cellulitis, no fluc tuance or bogginess to the left foot. Negative Claudio and Elizondo sign left. Compartments remain soft to palpate left lower extremity. DP 2/4, left. deep probing noted. Delayed primary closure site is intact with some central gapping and very mild adjacent maceration (apr compared to saturday examination). Upon suture removal granular central base with reduced ulcer depth. no maceration noted Debridement Note Debridement Note Wound debrided: plantar left foot Wound Grade/Stage: 2 Type of Debridement: Excisional debridement Anesthesia Used: 4% Lidocaine Solution Depth: in the subcutaneous layer Percentage of wound debrided: 100 Instrument Used: #15 blade Tissue Removed: fibrous, devitalized subcutaneous, biofilm, slough Severity: Fat Layer Exposed Amount of bleeding with debridement: Mild Bleeding Controlled with: Pressure Patient tolerated procedure: Patient tolerated procedure well Post-Debridement Measurements and Additional Note: Post-Debridement Measurements/Treatment AMINAH - Nurse 1 - General Ulcer Assessment Start: 09/27/21 09:35 Freq: Status: Active Protocol: WC.LOWEXT Activity Type Activity Date Activity User E-Sign Co-Sign Detail Recorded Client Recorded Date Recorded By Document 09/27/21 09:35 DL [id number] 09/27/21 09:43 DL 09/27/21 09:35 - Today's Visit Information Type of service Follow-up Visit (Physician/FARM TECHNICIAN ) Arrival Mode Ambulatory Transfer Assistance None Patient Identification Verified (Name & Yes ) Patient Requires Transmission-Based No Precautions Finger Stick Blood Sugar(mg/dl) (if didnt check indicated): Vital Signs Temperature (97.8 F-99.1 F) 96.2 F L Temperature Source Temporal History Since Last Visit- (Skip if this is Patient's initial visit) Have you changed medications since your No last visit? Any new allergies or adverse reactions No Had a fall/change in ADL's that may No increase risk of falls Signs or symptoms of abuse and/or No neglect since last visit Have you been in the hospital since your No last visit? Has dressing in place as prescribed Yes Has compression in place as prescribed N/A Has offloadiing in place as prescribed Yes Experienced any changes in pain level or No management Left Footwear No Footwear Pain Scale: 0-10 Numeric Is Patient Pain Free? Yes - Nurse 1 - General Ulcer Measurement Start: 09/27/21 09:35 Freq: Status: Active Protocol: Activity Type Activity Date Activity User E-Sign Co-Sign Detail Recorded Client Recorded Date Recorded By Document 09/27/21 09:35 DL [id number] 09/27/21 09:43 DL 09/27/21 09:35 Wound Center Nurse 1 10. L plantar -Current Size (cm) - Length 1 -Current Size (cm) - Width 1 -Current Size (cm) - Depth 1 -Total Square Cm 1 -Photo Taken Yes -Exudate Amt Medium -Exudate Type Serosanguineous -Granulation Amt Large (67-100%) -Granulation Quality Pale,[place] -Necrosis Amt Small (1-33%) -Necrotic Tissue Type Adherent Slough -Structure Exposed N/A -Texture (Shannon-wound Skin Appearance) Localized Edema ,Scarring -Moisture (Shannon-wound Skin Appearance) Maceration -Color (Shannon-wound Skin Appearance) No Abnormality -Temperature (Shannon-wound Skin No Abnormality Appearance) (Pt Warm) -Tenderness on Palpation (Shannon-wound No Skin Appearance) -Ulcer Cleansing Rinsed/ Irrigated with Saline -Foul Odor after Cleansing No WC - Nurse 2 - General Ulcer CM Notes Start: 09/27/21 09:35 Freq: Status: Active Protocol: Activity Type Activity Date Activity User E-Sign Co-Sign Detail Recorded Client Recorded Date Recorded By Document 09/27/21 09:50 EULOGIO [id number] 09/27/21 09:58 EULOGIO 09/27/21 09:50 Wound Center Nurse 2 -Time 09:54 -Correct Patient Yes -Correct Side, Site, Position Yes -Correct Procedure Yes -Procedure Performed Yes -Type of Procedure Debridement -Clinical Debridement Subcutaneous -Tissue Removed Subcutaneous -Post Debridement (cm) - Length 1.5 -Post Debridement (cm) - Width 2 -Post Debridement (cm) - Depth 0.5 -Total Square (Post) (cm) 3.0 -Area of Debridement (cm) - Length 1.5 -Area of Debridement (cm) - Width 2.0 -Total Square (Area) (cm) 3.00 -Tunneling No -Undermining/Tunneling No -Circular Undermining No -Wound/Ulcer Outcome Not Healed -Ulcer Cleansing Rinsed/ Irrigated with Saline -Foul Odor after Cleansing No -Bioengineered Tissue Yes -Type of Bioengineered Tissue Epicord -Expiration Date 01/25/26 -Product Lot Number [id number] -Percent Used 100 -Lot number of Saline Used [id number] -Bleeding Controlled with Pressure -Treatment Response Procedure Tolerated Well -Offloading Yes -Type of Offloading Knee Walker -Assistive Device(s) Wheelchair -Debridement - Subq, 1st 20sq cm No -Apply Skin Sub - 1st 25 sq cm - Feet 1 -Epicord (per sq cm) 6 Pain Scale: 0-10 Numeric Is Patient Pain Free? Yes WC - Nurse 3 - General Ulcer D/C NN Start: 09/27/21 09:35 Freq: Status: Active Protocol: Activity Type Activity Date Activity User E-Sign Co-Sign Detail Recorded Client Recorded Date Recorded By Document 09/27/21 10:05 MANE [id number] 09/27/21 10:06 MANE 09/27/21 10:05 Wound Care Nurse 3 10. L plantar -Primary Dressing Applied Mepilex Border -Other Dressing shree -Mepilex Border 1 Treatment Response Procedure Tolerated Well Pain Scale: 0-10 Numeric Is Patient Pain Free? Yes WC - Visit Discharge Discharge Condition Stable Ambulatory Status Wheelchair Transportation Private Auto Medication Reconcilliation completed & No provided to patient/care provider Clinical Summary of Care Provided Yes Assessment/Plan Assessment/Plan (1) Delayed wound healing: CODE(S): T14.8XXD - Other injury of unspecified body region, subsequent encounter (2) Charcot's joint of left foot: CODE(S): M14.672 - Charcot's joint, left ankle and foot (3) Type 2 diabetes mellitus with diabetic polyneuropathy: CODE(S): E11.42 - Type 2 diabetes mellitus with diabetic polyneuropathy QUALIFIERS: Diabetes mellitus intermission coordinator insulin use: with intermission coordinator use Qualified Code(s): E11.42 - Type 2 diabetes mellitus with diabetic polyneuropathy; Z79.4 - terminal clerk (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 Debridement was performed as noted. She is reassured no local signs of infection are noted. Maceration has resolved. To monitor. Sutures were removed and the ulcer site was debrided and cleaned. Next, verbal consent was obtained for application of advanced wound healing product, epi cord. This was applied according standard protocol was further secured with Steri-Strips and wound veil. She tolerated this well. The benefits indications and anticipated management were reviewed and discussed. She was advised to keep this clean, dry, and intact until follow-up next week. Vascular surgery intervention was performed successfully at [facility] recently with Dr. Pang w/ antioplasty at femoral through adductor into popliteal (balloon). To maintain non weightbearing status with the use of assistive devices (knee roller/walker when able secondary to shoulder fracture) left lower extremity. To use wheelchair with the assistance of the help of her . Imaging: X-rays were reviewed from prior emergency room visit in 07/2021. To continue nutritional supplementation to optimize healing. She is taking Blue and has also been trying to eat more fresh foods. She is working on more detailed diet planning with her primary care physician. F/u wound care center 1 week. I answered all of her questions. To call sooner or go to the emergency room if her clinical appearance worsens or if she develops systemic signs of illness. She is at risk for amputation and limb loss and systemic illness due to her comorbidities. Note: [employer] speech recognition head men's tennis coach software was used to create portions of this document. Sound-alike and misspelled words, as well as other head men's tennis coach errors may be contained in the documentation.
[2021-10-04 09:52] VITALS: BP 140/57; PULSE 86; RESP 20; TEMP 36.8
--- NOTE | 2021-10-04 21:34 | PN.PCM_ITS ---
History of Present Illness Date of Service: 10/04/21 Chief Complaint: Left foot History of Wound: This is 76-year-old female with diabetic neuropathy history of Charcot left foot with rocker-bottom deformity, coronary artery disease and other comorbidities has a recurrent ulcer. She has had delayed healing of her plantar foot ulcer secondary to rocker-bottom Charcot foot deformity, recurrent ulcers and infections. She completed left lower extremity vascular surgery intervention procedure and had this successfully completed at [facility] with Dr. Pang. He denies fever, chill, nausea, vomiting, calf pain, or diarrhea. She uses a wheelchair however reports she has to temporarily stand on her foot each time she uses the restroom at least several times a day. She has changed the dressing daily as advised. She denies odor. Progress of Wound: stable Objective Data Objective Data Vital Signs: Vital Signs Temp Pulse Resp BP 98.2 F 86 20 H 140/57 H 10/04/21 09:52 10/04/21 09:52 10/04/21 09:52 10/04/21 09:52 Physical Exam Narrative Left foot: Chopart amputation plantar central here is no direct probe to bone, necrosis, odor, erythema, or purulence noted. There is no cellulitis, no fluctuance or bogginess to the left foot. Negative Claudio and Elizondo sign left. Compartments remain soft to palpate left lower extremity. DP 2/4, left. deep probing noted. reduced ulcer bed with granular/ fibrous base (80:20%) Debridement Note Debridement Note Wound debrided: left foot Wound Grade/Stage: 2 Type of Debridement: Excisional debridement Anesthesia Used: 4% Lidocaine Solution Depth: in the subcutaneous layer Percentage of wound debrided: 100 Instrument Used: #15 blade Tissue Removed: fibrous, devitalized subcutaneous, biofilm, slough Severity: Fat Layer Exposed Amount of bleeding with debridement: Mild Bleeding Controlled with: Pressure Patient tolerated procedure: Patient tolerated procedure well Post-Debridement Measurements and Additional Note: Post-Debridement Measurements/Treatment WC - Nurse 1 - General Ulcer Assessment Start: 09/27/21 09:35 Freq: Status: Active Protocol: EUGENE Activity Type Activity Date Activity User E-Sign Co-Sign Detail Recorded Client Recorded Date Recorded By Document 09/27/21 09:35 DL [id number] 09/27/21 09:43 DL Document 10/04/21 09:52 DL [id number] 10/04/21 09:59 DL 09/27/21 10/04/21 09:35 09:52 - Today's Visit Information Type of service Follow-up Visit Follow-up Visit (Physician/LABORATORY APPARATUS GLASS BLOWER (Physician/LABORATORY APPARATUS GLASS BLOWER ) ) Arrival Mode Ambulatory Ambulatory Transfer Assistance None None Patient Identification Verified (Name & Yes Yes ) Patient Requires Transmission-Based No No Precautions Finger Stick Blood Sugar(mg/dl) (if didnt check didnt check indicated): Blood Sugar Stated by Patient Vital Signs Temperature (97.8 F-99.1 F) 96.2 F L 98.2 F Temperature Source Temporal Temporal Pulse Rate (60-100) 86 Pulse Location Monitor Respiratory Rate (12-18) 20 H Respiratory rate source Observation Blood Pressure (90/60-120/80) 140/57 H Blood Pressure Mean (mm Hg) 84 Source Monitor History Since Last Visit- (Skip if this is Patient's initial visit) Have you changed medications since your No No last visit? Any new allergies or adverse reactions No No Had a fall/change in ADL's that may No No increase risk of falls Signs or symptoms of abuse and/or No No neglect since last visit Have you been in the hospital since your No No last visit? Has dressing in place as prescribed Yes Yes Has compression in place as prescribed N/A No Has offloadiing in place as prescribed Yes Yes Experienced any changes in pain level or No No management Left Footwear No Footwear Pain Scale: 0-10 Numeric Is Patient Pain Free? Yes Yes - Nurse 1 - General Ulcer Measurement Start: 09/27/21 09:35 Freq: Status: Active Protocol: Activity Type Activity Date Activity User E-Sign Co-Sign Detail Recorded Client Recorded Date Recorded By Document 09/27/21 09:35 DL [id number] 09/27/21 09:43 DL Document 10/04/21 09:52 DL [id number] 10/04/21 09:59 DL 09/27/21 10/04/21 09:35 09:52 Wound Center Nurse 1 10. L plantar -Current Size (cm) - Length 1 2 -Current Size (cm) - Width 1 1.8 -Current Size (cm) - Depth 1 0.7 -Total Square Cm 1 3.6 -Photo Taken Yes Yes -Exudate Amt Medium Medium -Exudate Type Serosanguineous Serosanguineous -Wound Margin Distinct, Outline Attached -Granulation Amt Large (67-100%) Medium (34-66%) -Granulation Quality Pale,[place] -Necrosis Amt Small (1-33%) Medium (34-66%) -Necrotic Tissue Type Adherent Slough Adherent Slough -Structure Exposed N/A N/A -Texture (Shannon-wound Skin Appearance) Localized Edema Scarring ,Scarring -Moisture (Shannon-wound Skin Appearance) Maceration Maceration -Color (Shannon-wound Skin Appearance) No Abnormality No Abnormality -Temperature (Shannon-wound Skin No Abnormality Appearance) (Pt Warm) -Tenderness on Palpation (Shannon-wound No No Skin Appearance) -Ulcer Cleansing Rinsed/ Soap and Water Irrigated with Saline -Foul Odor after Cleansing No No -Anesthetic Used 5% Lidocaine Gel WC - Nurse 2 - General Ulcer CM Notes Start: 09/27/21 09:35 Freq: Status: Active Protocol: Activity Type Activity Date Activity User E-Sign Co-Sign Detail Recorded Client Recorded Date Recorded By Document 09/27/21 09:50 [id number] 09/27/21 09:58 Document 10/04/21 10:07 [id number] 10/04/21 10:12 09/27/21 10/04/21 09:50 10:07 Wound Center Nurse 2 10. L plantar -Time 09:54 10:07 -Correct Patient Yes Yes -Correct Side, Site, Position Yes Yes -Correct Procedure Yes Yes -Procedure Performed Yes Yes -Type of Procedure Debridement Debridement -Clinical Debridement Subcutaneous Subcutaneous -Tissue Removed Subcutaneous Subcutaneous -Post Debridement (cm) - Length 1.5 2.1 -Post Debridement (cm) - Width 2 1.8 -Post Debridement (cm) - Depth 0.5 0.7 -Total Square (Post) (cm) 3.0 3.78 -Area of Debridement (cm) - Length 1.5 2.1 -Area of Debridement (cm) - Width 2.0 1.8 -Total Square (Area) (cm) 3.00 3.78 -Tunneling No No -Undermining/Tunneling No No -Circular Undermining No No -Wound/Ulcer Outcome Not Healed Not Healed -Ulcer Cleansing Rinsed/ Rinsed/ Irrigated with Irrigated with Saline Saline -Foul Odor after Cleansing No No -Bioengineered Tissue Yes Yes -Type of Bioengineered Tissue Epicord Epicord -Expiration Date 01/25/26 01/25/26 -Product Lot Number [id number] -Percent Used 100 100 -Lot number of Saline Used [id number] -Bleeding Controlled with Pressure Pressure -Treatment Response Procedure Procedure Tolerated Well Tolerated Well -Offloading Yes Yes -Type of Offloading Knee Walker Knee Walker -Assistive Device(s) Wheelchair -Debridement - Subq, 1st 20sq cm No No -Apply Skin Sub - 1st 25 sq cm - Feet 1 1 -Epicord (per sq cm) 6 6 Pain Scale: 0-10 Numeric Is Patient Pain Free? Yes Yes - Nurse 3 - General Ulcer D/C NN Start: 09/27/21 09:35 Freq: Status: Active Protocol: Activity Type Activity Date Activity User E-Sign Co-Sign Detail Recorded Client Recorded Date Recorded By Document 09/27/21 10:05 [id number] 09/27/21 10:06 Document 10/04/21 10:12 [id number] 10/04/21 10:13 09/27/21 10/04/21 10:05 10:12 Wound Care Nurse 3 10. L plantar -Ulcer Cleansing Rinsed/ Irrigated with Saline -Foul Odor after Cleansing No -Primary Dressing Applied Mepilex Border -Other Dressing arjun -Primary Dressing Covered/Secured with Dry Gauze & Roll Gauze, Secured with Tape -Mepilex Border 1 Left -Compression Wrap Arjun Wrap Treatment Response Procedure Tolerated Well Pain Scale: 0-10 Numeric Is Patient Pain Free? Yes Yes - Visit Discharge Discharge Condition Stable Stable Ambulatory Status Wheelchair Wheelchair Transportation Private Auto Private Auto Medication Reconcilliation completed & No Yes provided to patient/care provider Clinical Summary of Care Provided Yes Yes Assessment/Plan Assessment/Plan (1) Delayed wound healing: CODE(S): T14.8XXD - Other injury of unspecified body region, subsequent encounter (2) Charcot's joint of left foot: CODE(S): M14.672 - Charcot's joint, left ankle and foot (3) Type 2 diabetes mellitus with diabetic polyneuropathy: CODE(S): E11.42 - Type 2 diabetes mellitus with diabetic polyneuropathy QUALIFIERS: Diabetes mellitus mcc insulin use: with parts counterman use Qualified Code(s): E11.42 - Type 2 diabetes mellitus with diabetic polyneuropathy; Z79.4 - termite technician (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 Debridement was performed as noted. She is reassured no local signs of infection are noted. Next, verbal consent was obtained for application of advanced wound healing product, epi cord. This was applied according standard protocol was further secured with Steri-Strips and wound veil. She tolerated this well. The benefits indications and anticipated management were reviewed and discussed. She was advised to keep this clean, dry, and intact until follow-up next week. Vascular surgery intervention was performed successfully at [facility] recently with Dr. Pang w/ antioplasty at femoral through adductor into popliteal (balloon). To maintain non weightbearing status with the use of assistive devices (knee roller/walker when able secondary to shoulder fracture) left lower extremity. To use wheelchair with the assistance of the help of her . Imaging: X-rays were reviewed from prior emergency room visit in 07/2021. To continue nutritional supplementation to optimize healing. She is taking Blue and has also been trying to eat more fresh foods. She is working on more detailed diet planning with her primary care physician. F/u wound care center 1 week. I answered all of her questions. To call sooner or go to the emergency room if her clinical appearance worsens or if she develops systemic signs of illness. She is at risk for amputation and limb loss and systemic illness due to her comorbidities. Note: iDiDiD speech recognition structural iron erector software was used to create portions of this document. Sound-alike and misspelled words, as well as other structural iron erector errors may be contained in the documentation.
--- NOTE | 2021-10-11 10:58 | PCM.WC.PN ---
History of Present Illness Date of Service: 10/11/21 Chief Complaint: Left foot History of Wound: This is 76-year-old female with diabetic neuropathy history of Charcot left foot with rocker-bottom deformity, coronary artery disease and other comorbidities has a recurrent ulcer. She has had delayed healing of her plantar foot ulcer secondary to rocker-bottom Charcot foot deformity, recurrent ulcers and infections. She completed left lower extremity vascular surgery intervention procedure and had this successfully completed at [facility] with Dr. Pang. He denies fever, chill, nausea, vomiting, calf pain, or diarrhea. She uses a wheelchair however reports she has to temporarily stand on her foot each time she uses the restroom at least several times a day. She has changed the dressing daily as advised. She denies odor. Progress of Wound: Improving Objective Data Objective Data Vital Signs: Vital Signs Temp Pulse Resp BP 98.2 F 86 20 H 140/57 H 10/04/21 09:52 10/04/21 09:52 10/04/21 09:52 10/04/21 09:52 Physical Exam Narrative Left foot: Chopart amputation plantar central here is no direct probe to bone, necrosis, odor, erythema, or purulence noted. Reduced depth noted. There is no cellulitis, no fluctuance or bogginess to the left foot. Negative Claudio and Elizondo sign left. Compartments remain soft to palpate left lower extremity. DP 2/4, left. deep probing noted. reduced ulcer bed with granular/ fibrous base (90:10%) Debridement Note Debridement Note Wound debrided: left foot Wound Grade/Stage: 2 Type of Debridement: Excisional debridement Anesthesia Used: 4% Lidocaine Solution Depth: in the subcutaneous layer Percentage of wound debrided: 100 Instrument Used: #15 blade Tissue Removed: fibrous, devitalized subcutaneous, biofilm, slough Severity: Fat Layer Exposed Amount of bleeding with debridement: Mild Bleeding Controlled with: Pressure Patient tolerated procedure: Patient tolerated procedure well Post-Debridement Measurements and Additional Note: Post-Debridement Measurements/Treatment AMNIAH - Nurse 1 - General Ulcer Assessment Start: 09/27/21 09:35 Freq: Status: Active Protocol: EUGENE Activity Type Activity Date Activity User E-Sign Co-Sign Detail Recorded Client Recorded Date Recorded By Document 09/27/21 09:35 DL [id number] 09/27/21 09:43 DL Document 10/04/21 09:52 DL [id number] 10/04/21 09:59 DL 09/27/21 10/04/21 09:35 09:52 - Today's Visit Information Type of service Follow-up Visit Follow-up Visit (Physician/EMBEDDED SOFTWARE TEST ENGINEER (Physician/EMBEDDED SOFTWARE TEST ENGINEER ) ) Arrival Mode Ambulatory Ambulatory Transfer Assistance None None Patient Identification Verified (Name & Yes Yes ) Patient Requires Transmission-Based No No Precautions Finger Stick Blood Sugar(mg/dl) (if didnt check didnt check indicated): Blood Sugar Stated by Patient Vital Signs Temperature (97.8 F-99.1 F) 96.2 F L 98.2 F Temperature Source Temporal Temporal Pulse Rate (60-100) 86 Pulse Location Monitor Respiratory Rate (12-18) 20 H Respiratory rate source Observation Blood Pressure (90/60-120/80) 140/57 H Blood Pressure Mean (mm Hg) 84 Source Monitor History Since Last Visit- (Skip if this is Patient's initial visit) Have you changed medications since your No No last visit? Any new allergies or adverse reactions No No Had a fall/change in ADL's that may No No increase risk of falls Signs or symptoms of abuse and/or No No neglect since last visit Have you been in the hospital since your No No last visit? Has dressing in place as prescribed Yes Yes Has compression in place as prescribed N/A No Has offloadiing in place as prescribed Yes Yes Experienced any changes in pain level or No No management Left Footwear No Footwear Pain Scale: 0-10 Numeric Is Patient Pain Free? Yes Yes - Nurse 1 - General Ulcer Measurement Start: 09/27/21 09:35 Freq: Status: Active Protocol: Activity Type Activity Date Activity User E-Sign Co-Sign Detail Recorded Client Recorded Date Recorded By Document 09/27/21 09:35 DL [id number] 09/27/21 09:43 DL Document 10/04/21 09:52 DL [id number] 10/04/21 09:59 DL 09/27/21 10/04/21 09:35 09:52 Wound Center Nurse 1 10. L plantar -Current Size (cm) - Length 1 2 -Current Size (cm) - Width 1 1.8 -Current Size (cm) - Depth 1 0.7 -Total Square Cm 1 3.6 -Photo Taken Yes Yes -Exudate Amt Medium Medium -Exudate Type Serosanguineous Serosanguineous -Wound Margin Distinct, Outline Attached -Granulation Amt Large (67-100%) Medium (34-66%) -Granulation Quality Pale,[place] -Necrosis Amt Small (1-33%) Medium (34-66%) -Necrotic Tissue Type Adherent Slough Adherent Slough -Structure Exposed N/A N/A -Texture (Shannon-wound Skin Appearance) Localized Edema Scarring ,Scarring -Moisture (Shannon-wound Skin Appearance) Maceration Maceration -Color (Shannon-wound Skin Appearance) No Abnormality No Abnormality -Temperature (Shannon-wound Skin No Abnormality Appearance) (Pt Warm) -Tenderness on Palpation (Shannon-wound No No Skin Appearance) -Ulcer Cleansing Rinsed/ Soap and Water Irrigated with Saline -Foul Odor after Cleansing No No -Anesthetic Used 5% Lidocaine Gel WC - Nurse 2 - General Ulcer CM Notes Start: 09/27/21 09:35 Freq: Status: Active Protocol: Activity Type Activity Date Activity User E-Sign Co-Sign Detail Recorded Client Recorded Date Recorded By Document 09/27/21 09:50 [id number] 09/27/21 09:58 Document 10/04/21 10:07 [id number] 10/04/21 10:12 09/27/21 10/04/21 09:50 10:07 Wound Center Nurse 2 10. L plantar -Time 09:54 10:07 -Correct Patient Yes Yes -Correct Side, Site, Position Yes Yes -Correct Procedure Yes Yes -Procedure Performed Yes Yes -Type of Procedure Debridement Debridement -Clinical Debridement Subcutaneous Subcutaneous -Tissue Removed Subcutaneous Subcutaneous -Post Debridement (cm) - Length 1.5 2.1 -Post Debridement (cm) - Width 2 1.8 -Post Debridement (cm) - Depth 0.5 0.7 -Total Square (Post) (cm) 3.0 3.78 -Area of Debridement (cm) - Length 1.5 2.1 -Area of Debridement (cm) - Width 2.0 1.8 -Total Square (Area) (cm) 3.00 3.78 -Tunneling No No -Undermining/Tunneling No No -Circular Undermining No No -Wound/Ulcer Outcome Not Healed Not Healed -Ulcer Cleansing Rinsed/ Rinsed/ Irrigated with Irrigated with Saline Saline -Foul Odor after Cleansing No No -Bioengineered Tissue Yes Yes -Type of Bioengineered Tissue Epicord Epicord -Expiration Date 01/25/26 01/25/26 -Product Lot Number [id number] -Percent Used 100 100 -Lot number of Saline Used [id number] -Bleeding Controlled with Pressure Pressure -Treatment Response Procedure Procedure Tolerated Well Tolerated Well -Offloading Yes Yes -Type of Offloading Knee Walker Knee Walker -Assistive Device(s) Wheelchair -Debridement - Subq, 1st 20sq cm No No -Apply Skin Sub - 1st 25 sq cm - Feet 1 1 -Epicord (per sq cm) 6 6 Pain Scale: 0-10 Numeric Is Patient Pain Free? Yes Yes - Nurse 3 - General Ulcer D/C NN Start: 09/27/21 09:35 Freq: Status: Active Protocol: Activity Type Activity Date Activity User E-Sign Co-Sign Detail Recorded Client Recorded Date Recorded By Document 09/27/21 10:05 [id number] 09/27/21 10:06 RB Document 10/04/21 10:12 [id number] 10/04/21 10:13 09/27/21 10/04/21 10:05 10:12 Wound Care Nurse 3 10. L plantar -Ulcer Cleansing Rinsed/ Irrigated with Saline -Foul Odor after Cleansing No -Primary Dressing Applied Mepilex Border -Other Dressing arjun -Primary Dressing Covered/Secured with Dry Gauze & Roll Gauze, Secured with Tape -Mepilex Border 1 Left -Compression Wrap Arjun Wrap Treatment Response Procedure Tolerated Well Pain Scale: 0-10 Numeric Is Patient Pain Free? Yes Yes - Visit Discharge Discharge Condition Stable Stable Ambulatory Status Wheelchair Wheelchair Transportation Private Auto Private Auto Medication Reconcilliation completed & No Yes provided to patient/care provider Clinical Summary of Care Provided Yes Yes Assessment/Plan Assessment/Plan (1) Delayed wound healing: CODE(S): T14.8XXD - Other injury of unspecified body region, subsequent encounter (2) Charcot's joint of left foot: CODE(S): M14.672 - Charcot's joint, left ankle and foot (3) Type 2 diabetes mellitus with diabetic polyneuropathy: CODE(S): E11.42 - Type 2 diabetes mellitus with diabetic polyneuropathy QUALIFIERS: Diabetes mellitus assisted insulin use: with assisted use Qualified Code(s): E11.42 - Type 2 diabetes mellitus with diabetic polyneuropathy; Z79.4 - prison (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 Debridement was performed as noted. She is reassured no local signs of infection are noted. Next, verbal consent was obtained for application of advanced wound healing product, epifix. This was applied according standard protocol was further secured with Steri-Strips and wound veil. She tolerated this well. The benefits indications and anticipated management were reviewed and discussed. She was advised to keep this clean, dry, and intact until follow-up next week. Vascular surgery intervention was performed successfully at [facility] recently with Dr. Pang w/ antioplasty at femoral through adductor into popliteal (balloon). To maintain non weightbearing status with the use of assistive devices (knee roller/walker when able secondary to shoulder fracture) left lower extremity. To use wheelchair with the assistance of the help of her . Imaging: X-rays were reviewed from prior emergency room visit in 07/2021. To continue nutritional supplementation to optimize healing. She is taking Blue and has also been trying to eat more fresh foods. She is working on more detailed diet planning with her primary care physician. F/u wound care center 1 week. I answered all of her questions. To call sooner or go to the emergency room if her clinical appearance worsens or if she develops systemic signs of illness. She is at risk for amputation and limb loss and systemic illness due to her comorbidities. Note: AnchorFree speech recognition energy and conservation technician software was used to create portions of this document. Sound-alike and misspelled words, as well as other energy and conservation technician errors may be contained in the documentation.
[2021-10-11 11:24] VITALS: BP 132/55; PULSE 79; RESP 16; TEMP 36.1
[2021-10-18 09:58] VITALS: BP 133/48; PULSE 70; RESP 18; TEMP 36.4
--- NOTE | 2021-10-18 15:32 | PCM.WC.PN ---
History of Present Illness Date of Service: 10/18/21 Chief Complaint: Left foot History of Wound: This is 76-year-old female with diabetic neuropathy history of Charcot left foot with rocker-bottom deformity, coronary artery disease and other comorbidities has a recurrent ulcer. She has had delayed healing of her plantar foot ulcer secondary to rocker-bottom Charcot foot deformity, recurrent ulcers and infections. She completed left lower extremity vascular surgery intervention procedure and had this successfully completed at [facility] with Dr. Pang. He denies fever, chill, nausea, vomiting, calf pain, or diarrhea. She uses a wheelchair most of the time. She has changed the dressing daily as advised. She denies odor. Progress of Wound: Improving Objective Data Objective Data Vital Signs: Vital Signs Temp Pulse Resp BP 97.5 F L 70 18 133/48 H 10/18/21 09:58 10/18/21 09:58 10/18/21 09:58 10/18/21 09:58 Oxygen Delivery Method Room Air Physical Exam Narrative Left foot: Chopart amputation plantar central here is no direct probe to bone, necrosis, odor, erythema, or purulence noted. Reduced depth noted. There is no cellulitis, no fluctuance or bogginess to the left foot. Negative Claudio and Elizondo sign left. Compartments remain soft to palpate left lower extremity. DP 2/4, left. deep probing noted. ulcer bed with granular base Debridement Note Debridement Note Wound debrided: plantar left foot Wound Grade/Stage: 2 Type of Debridement: Excisional debridement Anesthesia Used: 4% Lidocaine Solution Depth: in the subcutaneous layer Percentage of wound debrided: 100 Instrument Used: #15 blade Tissue Removed: fibrous, devitalized subcutaneous, biofilm, slough Severity: Fat Layer Exposed Amount of bleeding with debridement: Mild Bleeding Controlled with: Pressure Patient tolerated procedure: Patient tolerated procedure well Post-Debridement Measurements and Additional Note: Post-Debridement Measurements/Treatment AMINAH - Nurse 1 - General Ulcer Assessment Start: 09/27/21 09:35 Freq: Status: Active Protocol: EUGENE Activity Type Activity Date Activity User E-Sign Co-Sign Detail Recorded Client Recorded Date Recorded By Document 09/27/21 09:35 DL [id number] 09/27/21 09:43 DL Document 10/04/21 09:52 DL [id number] 10/04/21 09:59 DL Document 10/11/21 11:24 BM [id number] 10/11/21 11:26 BMF Document 10/18/21 09:58 RB [id number] 10/18/21 10:03 RB 09/27/21 10/04/21 10/11/21 09:35 09:52 11:24 WC - Today's Visit Information Type of service Follow-up Visit Follow-up Visit Follow-up Visit (Physician/COMPUTER SYSTEMS SOFTWARE ARCHITECT (Physician/COMPUTER SYSTEMS SOFTWARE ARCHITECT (Physician/COMPUTER SYSTEMS SOFTWARE ARCHITECT ) ) ) Arrival Mode Ambulatory Ambulatory Wheelchair Transfer Assistance None None Other Transfer Assist (Other) stand by Patient Identification Verified (Name & Yes Yes Yes ) Patient Requires Transmission-Based No No No Precautions Finger Stick Blood Sugar(mg/dl) (if didnt check didnt check indicated): Blood Sugar Stated by Patient Vital Signs Temperature (97.8 F-99.1 F) 96.2 F L 98.2 F 97 F L Temperature Source Temporal Temporal Temporal Pulse Rate (60-100) 86 79 Pulse Location Monitor Monitor Respiratory Rate (12-18) 20 H 16 Respiratory rate source Observation Observation Oxygen Delivery Method Room Air Blood Pressure (90/60-120/80) 140/57 H 132/55 H Blood Pressure Mean (mm Hg) 84 80 Source Monitor Monitor Position Sitting Blood Pressure Location Left Arm History Since Last Visit- (Skip if this is Patient's initial visit) Have you changed medications since your No No No last visit? Any new allergies or adverse reactions No No No Had a fall/change in ADL's that may No No No increase risk of falls Signs or symptoms of abuse and/or No No No neglect since last visit Have you been in the hospital since your No No No last visit? Has dressing in place as prescribed Yes Yes Yes Has compression in place as prescribed N/A No N/A Has offloadiing in place as prescribed Yes Yes Yes Experienced any changes in pain level or No No No management Left Footwear No Footwear Right Footwear Regular Shoe Other Footwear no shoe to left foot Pain Scale: 0-10 Numeric Is Patient Pain Free? Yes Yes Yes 10/18/21 09:58 WC - Today's Visit Information Type of service Follow-up Visit (Physician/COMPUTER SYSTEMS SOFTWARE ARCHITECT ) Arrival Mode Crutches Transfer Assistance Manual Transfer Assist (Other) Patient Identification Verified (Name & Yes ) Patient Requires Transmission-Based No Precautions Finger Stick Blood Sugar(mg/dl) (if 116 indicated): Blood Sugar Stated by Patient Vital Signs Temperature (97.8 F-99.1 F) 97.5 F L Temperature Source Temporal Pulse Rate (60-100) 70 Pulse Location Monitor Respiratory Rate (12-18) 18 Respiratory rate source Observation Oxygen Delivery Method Blood Pressure (90/60-120/80) 133/48 H Blood Pressure Mean (mm Hg) 76 Source Monitor Position Semi-Fowlers Blood Pressure Location Left Arm History Since Last Visit- (Skip if this is Patient's initial visit) Have you changed medications since your No last visit? Any new allergies or adverse reactions No Had a fall/change in ADL's that may No increase risk of falls Signs or symptoms of abuse and/or No neglect since last visit Have you been in the hospital since your No last visit? Has dressing in place as prescribed Yes Has compression in place as prescribed No Has offloadiing in place as prescribed No Experienced any changes in pain level or No management Left Footwear Right Footwear Other Footwear Pain Scale: 0-10 Numeric Is Patient Pain Free? Yes WC - Nurse 1 - General Ulcer Measurement Start: 09/27/21 09:35 Freq: Status: Active Protocol: Activity Type Activity Date Activity User E-Sign Co-Sign Detail Recorded Client Recorded Date Recorded By Document 09/27/21 09:35 DL [id number] 09/27/21 09:43 DL Document 10/04/21 09:52 DL [id number] 10/04/21 09:59 DL Document 10/11/21 11:24 [facility] [id number] 10/11/21 11:26 BMF Document 10/18/21 09:58 RB [id number] 10/18/21 10:03 RB 09/27/21 10/04/21 10/11/21 09:35 09:52 11:24 Wound Center Nurse 1 10. L plantar -Combined with other wound No -Current Size (cm) - Length 1 2 1 -Current Size (cm) - Width 1 1.8 0.8 -Current Size (cm) - Depth 1 0.7 0.4 -Total Square Cm 1 3.6 0.8 -Date of Last Picture (Recall this 10/11/21 field) -Photo Taken Yes Yes Yes -Epithelialization Small 1-33% -Tunneling No -Undermining/Tunneling No -Circular Undermining No -Exudate Amt Medium Medium Medium -Exudate Type Serosanguineous Serosanguineous Serosanguineous -Wound Margin Distinct, Distinct, Outline Outline Attached Attached -Granulation Amt Large (67-100%) Medium (34-66%) Large (67-100%) -Granulation Quality Pale,[place] Red -Slough/Fibrin Yes -Necrosis Amt Small (1-33%) Medium (34-66%) Small (1-33%) -Necrotic Tissue Type Adherent Slough Adherent Slough Adherent Slough -Structure Exposed N/A N/A -Texture (Shannon-wound Skin Appearance) Localized Edema Scarring Assessed, ,Scarring Scarring -Moisture (Shannon-wound Skin Appearance) Maceration Maceration Assessed -Color (Shannon-wound Skin Appearance) No Abnormality No Abnormality Assessed -Temperature (Shannon-wound Skin No Abnormality No Abnormality Appearance) (Pt Warm) (Pt Warm) -Tenderness on Palpation (Shannon-wound No No No Skin Appearance) -Ulcer Cleansing Rinsed/ Soap and Water Soap and Water Irrigated with Saline -Foul Odor after Cleansing No No No -Anesthetic Used 5% Lidocaine 4% Lidocaine Gel Solution 10/18/21 09:58 Wound Center Nurse 1 10. L plantar -Combined with other wound -Current Size (cm) - Length 1 -Current Size (cm) - Width 1.1 -Current Size (cm) - Depth 0.2 -Total Square Cm 1.1 -Date of Last Picture (Recall this field) -Photo Taken Yes -Epithelialization -Tunneling No -Undermining/Tunneling No -Circular Undermining No -Exudate Amt Medium -Exudate Type Serosanguineous -Wound Margin Distinct, Outline Attached -Granulation Amt Medium (34-66%) -Granulation Quality [place] -Slough/Fibrin Yes -Necrosis Amt Medium (34-66%) -Necrotic Tissue Type Adherent Slough -Structure Exposed N/A -Texture (Shannon-wound Skin Appearance) Assessed,Callus -Moisture (Shannon-wound Skin Appearance) Assessed -Color (Shannon-wound Skin Appearance) Assessed -Temperature (Shannon-wound Skin No Abnormality Appearance) (Pt Warm) -Tenderness on Palpation (Shannon-wound No Skin Appearance) -Ulcer Cleansing Wound Cleanser -Foul Odor after Cleansing No -Anesthetic Used 5% Lidocaine Gel WC - Nurse 2 - General Ulcer CM Notes Start: 09/27/21 09:35 Freq: Status: Active Protocol: Activity Type Activity Date Activity User E-Sign Co-Sign Detail Recorded Client Recorded Date Recorded By Document 09/27/21 09:50 [id number] 09/27/21 09:58 Document 10/04/21 10:07 [id number] 10/04/21 10:12 Document 10/11/21 11:41 [id number] 10/11/21 11:45 Document 10/18/21 10:34 [id number] 10/18/21 10:37 09/27/21 10/04/21 10/11/21 09:50 10:07 11:41 Wound Center Nurse 2 10. L plantar -Time 09:54 10:07 11:41 -Correct Patient Yes Yes Yes -Correct Side, Site, Position Yes Yes Yes -Correct Procedure Yes Yes Yes -Procedure Performed Yes Yes Yes -Type of Procedure Debridement Debridement Debridement -Clinical Debridement Subcutaneous Subcutaneous Subcutaneous -Tissue Removed Subcutaneous Subcutaneous Subcutaneous -Post Debridement (cm) - Length 1.5 2.1 1.0 -Post Debridement (cm) - Width 2 1.8 0.9 -Post Debridement (cm) - Depth 0.5 0.7 0.4 -Total Square (Post) (cm) 3.0 3.78 0.90 -Area of Debridement (cm) - Length 1.5 2.1 1 -Area of Debridement (cm) - Width 2.0 1.8 0.9 -Total Square (Area) (cm) 3.00 3.78 0.9 -Tunneling No No No -Undermining/Tunneling No No No -Circular Undermining No No No -Wound/Ulcer Outcome Not Healed Not Healed Not Healed -Ulcer Cleansing Rinsed/ Rinsed/ Rinsed/ Irrigated with Irrigated with Irrigated with Saline Saline Saline -Foul Odor after Cleansing No No No -Bioengineered Tissue Yes Yes Yes -Type of Bioengineered Tissue Epicord Epicord Epifix -Expiration Date 01/25/26 01/25/26 06/27/26 -Product Lot Number [id number] -Percent Used 100 100 100 -Lot number of Saline Used [id number] -Bleeding Controlled with Pressure Pressure Pressure -Treatment Response Procedure Procedure Procedure Tolerated Well Tolerated Well Tolerated Well -Offloading Yes Yes -Type of Offloading Knee Walker Knee Walker Knee Walker -Assistive Device(s) Wheelchair -Debridement - Subq, 1st 20sq cm No No No -Apply Skin Sub - 1st 25 sq cm - Feet 1 1 1 -Epicord (per sq cm) 6 6 -Epifix (per sq cm) 4 -Epifix 18mm Disc Pain Scale: 0-10 Numeric Is Patient Pain Free? Yes Yes Yes 10/18/21 10:34 Wound Center Nurse 2 10. L plantar -Time 10:34 -Correct Patient Yes -Correct Side, Site, Position Yes -Correct Procedure Yes -Procedure Performed Yes -Type of Procedure Debridement -Clinical Debridement Subcutaneous -Tissue Removed Subcutaneous -Post Debridement (cm) - Length 1.0 -Post Debridement (cm) - Width 1.2 -Post Debridement (cm) - Depth 0.2 -Total Square (Post) (cm) 1.20 -Area of Debridement (cm) - Length 1.0 -Area of Debridement (cm) - Width 1.2 -Total Square (Area) (cm) 1.20 -Tunneling No -Undermining/Tunneling No -Circular Undermining No -Wound/Ulcer Outcome Not Healed -Ulcer Cleansing Rinsed/ Irrigated with Saline -Foul Odor after Cleansing No -Bioengineered Tissue Yes -Type of Bioengineered Tissue Epifix 18mm Disc -Expiration Date 05/27/26 -Product Lot Number [id number] -Percent Used 100 -Lot number of Saline Used [id number] -Bleeding Controlled with Pressure -Treatment Response Procedure Tolerated Well -Offloading Yes -Type of Offloading Surgical Shoe -Assistive Device(s) Wheelchair -Debridement - Subq, 1st 20sq cm No -Apply Skin Sub - 1st 25 sq cm - Feet 1 -Epicord (per sq cm) -Epifix (per sq cm) -Epifix 18mm Disc 3 Pain Scale: 0-10 Numeric Is Patient Pain Free? Yes WC - Nurse 3 - General Ulcer D/C NN Start: 09/27/21 09:35 Freq: Status: Active Protocol: Activity Type Activity Date Activity User E-Sign Co-Sign Detail Recorded Client Recorded Date Recorded By Document 09/27/21 10:05 RB [id number] 09/27/21 10:06 RB Document 10/04/21 10:12 JF [id number] 10/04/21 10:13 JF Document 10/11/21 11:43 RB [id number] 10/11/21 11:44 RB Document 10/18/21 10:46 RB [id number] 10/18/21 10:47 RB 09/27/21 10/04/21 10/11/21 10:05 10:12 11:43 Wound Care Nurse 3 10. L plantar -Ulcer Cleansing Rinsed/ Rinsed/ Irrigated with Irrigated with Saline Saline -Foul Odor after Cleansing No -Primary Dressing Applied Mepilex Border -Other Dressing arjun abd roll gauze then arjun -Primary Dressing Covered/Secured with Dry Gauze & Dry Gauze,Dry Roll Gauze, Gauze & Roll Secured with Gauze,Secured Tape with Tape -Other Covering -Mepilex Border 1 Left -Compression Wrap Arjun Wrap -Other Treatment Response Procedure Procedure Tolerated Well Tolerated Well Pain Scale: 0-10 Numeric Is Patient Pain Free? Yes Yes Yes WC - Visit Discharge Discharge Condition Stable Stable Stable Ambulatory Status Wheelchair Wheelchair Wheelchair Transportation Private Auto Private Auto Private Auto Medication Reconcilliation completed & No Yes No provided to patient/care provider Clinical Summary of Care Provided Yes Yes Yes 10/18/21 10:46 Wound Care Nurse 3 10. L plantar -Ulcer Cleansing -Foul Odor after Cleansing -Primary Dressing Applied -Other Dressing -Primary Dressing Covered/Secured with Dry Gauze,Dry Gauze & Roll Gauze,Secured with Tape -Other Covering arjun -Mepilex Border Left -Compression Wrap -Other arjun Treatment Response Procedure Tolerated Well Pain Scale: 0-10 Numeric Is Patient Pain Free? Yes WC - Visit Discharge Discharge Condition Stable Ambulatory Status Wheelchair Transportation Private Auto Medication Reconcilliation completed & No provided to patient/care provider Clinical Summary of Care Provided Yes Assessment/Plan Assessment/Plan (1) Delayed wound healing: CODE(S): T14.8XXD - Other injury of unspecified body region, subsequent encounter (2) Charcot's joint of left foot: CODE(S): M14.672 - Charcot's joint, left ankle and foot (3) Type 2 diabetes mellitus with diabetic polyneuropathy: CODE(S): E11.42 - Type 2 diabetes mellitus with diabetic polyneuropathy QUALIFIERS: Diabetes mellitus long term care phlebotomist insulin use: with fdc use Qualified Code(s): E11.42 - Type 2 diabetes mellitus with diabetic polyneuropathy; Z79.4 - terminal carman (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 Debridement was performed as noted. She is reassured no local signs of infection are noted. Next, verbal consent was obtained for application of advanced wound healing product, epifix. This was applied according standard protocol was further secured with Steri-Strips and wound veil. She tolerated this well. The benefits indications and anticipated management were reviewed and discussed. She was advised to keep this clean, dry, and intact until follow-up next week. Vascular surgery intervention was performed successfully at [facility] recently with Dr. Pang w/ antioplasty at femoral through adductor into popliteal (balloon). To maintain non weightbearing status with the use of assistive devices (knee roller/walker when able secondary to shoulder fracture) left lower extremity. To use wheelchair with the assistance of the help of her . Imaging: X-rays were reviewed from prior emergency room visit in 07/2021. To continue nutritional supplementation to optimize healing. She is taking Blue and has also been trying to eat more fresh foods. She is working on more detailed diet planning with her primary care physician. F/u wound care center 1 week. I answered all of her questions. To call sooner or go to the emergency room if her clinical appearance worsens or if she develops systemic signs of illness. She is at risk for amputation and limb loss and systemic illness due to her comorbidities. Note: [employer] speech recognition developmental electronics assembler software was used to create portions of this document. Sound-alike and misspelled words, as well as other developmental electronics assembler errors may be contained in the documentation.
== END 2021-10-24 23:59 | disposition home or self-care (01) ==
LOC: WC 09:45
PROVIDERS: PCP Family Medicine; Visit Provider Podiatrist
DX: E11.621 Type 2 diabetes mellitus with foot ulcer (principal); L97.522 Non-pressure chronic ulcer of other part of left foot with fat layer exposed; E11.42 Type 2 diabetes mellitus with diabetic polyneuropathy; E11.610 Type 2 diabetes mellitus with diabetic neuropathic arthropathy; Z79.4 Long term (current) use of insulin; I25.10 Atherosclerotic heart disease of native coronary artery without angina pectoris; Z79.82 Long term (current) use of aspirin; Z79.02 Long term (current) use of antithrombotics/antiplatelets; Z79.890 Hormone replacement therapy; Z79.899 Other long term (current) drug therapy
CPT/HCPCS: 15275; Q4186; Q4187

== ENCOUNTER 2021-11-01 10:33 | Outpatient (CLI) | payer MEDICARE, OTHER, SELFPAY | END 2021-11-01 23:59 | disposition home or self-care (01) | PROVIDERS: PCP Family Medicine; Visit Provider Family Medicine | DX: Z20.822 Contact with and (suspected) exposure to COVID-19 (principal); E11.621 Type 2 diabetes mellitus with foot ulcer; L97.522 Non-pressure chronic ulcer of other part of left foot with fat layer exposed; E11.42 Type 2 diabetes mellitus with diabetic polyneuropathy; E11.610 Type 2 diabetes mellitus with diabetic neuropathic arthropathy; Z79.4 Long term (current) use of insulin; S90.822A Blister (nonthermal), left foot, initial encounter; I25.10 Atherosclerotic heart disease of native coronary artery without angina pectoris; M25.572 Pain in left ankle and joints of left foot; Z79.82 Long term (current) use of aspirin; Z79.02 Long term (current) use of antithrombotics/antiplatelets; Z79.899 Other long term (current) drug therapy | CPT/HCPCS: 15275; 73610; 73630; 87635; Q4186; U0003; U0005 ==

== ENCOUNTER 2021-11-22 10:00 | Outpatient (RCR) | payer MEDICARE, OTHER, SELFPAY ==
[2021-10-25 01:01] VITALS: BP 133/48; PULSE 70; RESP 18; TEMP 36.4
[2021-10-25 09:59] VITALS: BP 154/48; PULSE 73; RESP 16; TEMP 36.4
--- NOTE | 2021-10-25 10:44 | PN.PCM_ITS ---
History of Present Illness Date of Service: 10/25/21 Chief Complaint: Left foot History of Wound: This is 76-year-old female with diabetic neuropathy history of Charcot left foot with rocker-bottom deformity, coronary artery disease and other comorbidities has a recurrent ulcer. She has had delayed healing of her plantar foot ulcer secondary to rocker-bottom Charcot foot deformity, recurrent ulcers and infections. She completed left lower extremity vascular surgery intervention procedure and had this successfully completed at [facility] with Dr. Pang. He denies fever, chill, nausea, vomiting, calf pain, or diarrhea. She uses a wheelchair most of the time and reports continued com pliance. She has changed the dressing daily as advised. She denies odor. Progress of Wound: Improving Objective Data Objective Data Vital Signs: Vital Signs Temp Pulse Resp BP 97.5 F L 73 16 154/48 H 10/25/21 09:59 10/25/21 09:59 10/25/21 09:59 10/25/21 09:59 Oxygen Delivery Method Room Air Physical Exam Narrative Left foot: Chopart amputation plantar central foot ulcer has no direct probe to bone, necrosis, odor, erythema, or purulence noted. Reduced depth and size noted. There is no cellulitis, no fluctuance or bogginess to the left foot. Negative Claudio and Elizondo sign left. Compartments remain soft to palpate left lower extremity. DP 2/4, left. deep probing noted. ulcer bed with granular base Debridement Note Debridement Note Wound debrided: left foot Wound Grade/Stage: 2 Type of Debridement: Excisional debridement Anesthesia Used: 4% Lidocaine Solution Depth: in the subcutaneous layer Percentage of wound debrided: 100 Instrument Used: #15 blade Tissue Removed: fibrous, devitalized subcutaneous, biofilm, slough Severity: Fat Layer Exposed Amount of bleeding with debridement: Mild Bleeding Controlled with: Pressure Patient tolerated procedure: Patient tolerated procedure well Post-Debridement Measurements and Additional Note: Post-Debridement Measurements/Treatment - Nurse 1 - General Ulcer Assessment Start: 10/25/21 09:59 Freq: Status: Active Protocol: EUGENE Activity Type Activity Date Activity User E-Sign Co-Sign Detail Recorded Client Recorded Date Recorded By Document 10/25/21 09:59 [facility] Desktop 10/25/21 10:11 [facility] 10/25/21 09:59 - Today's Visit Information Type of service Follow-up Visit (Physician/BED OPERATOR ) Arrival Mode Wheelchair Transfer Assistance Other Transfer Assist (Other) 1 stand by Patient Identification Verified (Name & Yes ) Patient Requires Transmission-Based No Precautions Vital Signs Temperature (97.8 F-99.1 F) 97.5 F L Temperature Source Temporal Pulse Rate (60-100) 73 Pulse Location Monitor Respiratory Rate (12-18) 16 Respiratory rate source Observation Oxygen Delivery Method Room Air Blood Pressure (90/60-120/80) 154/48 H Blood Pressure Mean (mm Hg) 83 Source Monitor Position Sitting Blood Pressure Location Left Arm History Since Last Visit- (Skip if this is Patient's initial visit) Have you changed medications since your No last visit? Any new allergies or adverse reactions No Had a fall/change in ADL's that may No increase risk of falls Signs or symptoms of abuse and/or No neglect since last visit Have you been in the hospital since your No last visit? Has dressing in place as prescribed Yes Has compression in place as prescribed N/A Has offloadiing in place as prescribed No Experienced any changes in pain level or No management Right Footwear Regular Shoe Other Footwear shree to left foot Pain Scale: 0-10 Numeric Is Patient Pain Free? Yes WC - Nurse 1 - General Ulcer Measurement Start: 10/25/21 09:59 Freq: Status: Active Protocol: Activity Type Activity Date Activity User E-Sign Co-Sign Detail Recorded Client Recorded Date Recorded By Document 10/25/21 09:59 [facility] Desktop 10/25/21 10:11 [facility] 10/25/21 09:59 Wound Center Nurse 1 10. L plantar -Combined with other wound No -Current Size (cm) - Length 0.8 -Current Size (cm) - Width 0.5 -Current Size (cm) - Depth 0.3 -Total Square Cm 0.40 -Date of Last Picture (Recall this 10/25/21 field) -Photo Taken Yes -Epithelialization Small 1-33% -Tunneling No -Undermining/Tunneling No -Circular Undermining No -Exudate Amt Medium -Exudate Type Serosanguineous -Wound Margin Distinct, Outline Attached -Granulation Amt Large (67-100%) -Granulation Quality Hyper- granulation,Red -Slough/Fibrin No -Necrosis Amt None Present (0 %) -Texture (Shannon-wound Skin Appearance) Assessed,Callus ,Scarring -Moisture (Shannon-wound Skin Appearance) Assessed, Maceration,Dry/ Scaly -Color (Shannon-wound Skin Appearance) Assessed,Palor -Temperature (Shannon-wound Skin No Abnormality Appearance) (Pt Warm) -Tenderness on Palpation (Shannon-wound No Skin Appearance) -Ulcer Cleansing Soap and Water -Foul Odor after Cleansing No -Anesthetic Used 4% Lidocaine Solution - Nurse 2 - General Ulcer CM Notes Start: 10/25/21 09:59 Freq: Status: Active Protocol: Activity Type Activity Date Activity User E-Sign Co-Sign Detail Recorded Client Recorded Date Recorded By Document 10/25/21 10:23 [id number] 10/25/21 10:28 10/25/21 10:23 Wound Center Nurse 2 -Time 10:25 -Correct Patient Yes -Correct Side, Site, Position Yes -Correct Procedure Yes -Procedure Performed Yes -Type of Procedure Debridement -Clinical Debridement Subcutaneous -Tissue Removed Subcutaneous -Post Debridement (cm) - Length 0.9 -Post Debridement (cm) - Width 0.5 -Post Debridement (cm) - Depth 0.3 -Total Square (Post) (cm) 0.45 -Area of Debridement (cm) - Length 0.9 -Area of Debridement (cm) - Width 0.5 -Total Square (Area) (cm) 0.45 -Tunneling No -Undermining/Tunneling No -Circular Undermining No -Wound/Ulcer Outcome Not Healed -Ulcer Cleansing Rinsed/ Irrigated with Saline -Foul Odor after Cleansing No -Bioengineered Tissue Yes -Type of Bioengineered Tissue Epifix 18mm Disc -Expiration Date 07/25/26 -Product Lot Number [id number] -Percent Used 100 -Lot number of Saline Used [id number] -Bleeding Controlled with Pressure -Treatment Response Procedure Tolerated Well -Offloading Yes -Type of Offloading Knee Walker -Assistive Device(s) Wheelchair -Debridement - Subq, 1st 20sq cm No -Apply Skin Sub - 1st 25 sq cm - Feet 1 -Epifix 18mm Disc 3 Pain Scale: 0-10 Numeric Is Patient Pain Free? Yes - Nurse 3 - General Ulcer D/C NN Start: 10/25/21 09:59 Freq: Status: Active Protocol: Activity Type Activity Date Activity User E-Sign Co-Sign Detail Recorded Client Recorded Date Recorded By Document 10/25/21 10:33 MANE [id number] 10/25/21 10:34 RB 10/25/21 10:33 Wound Care Nurse 3 10. L plantar -Other Dressing abd, kerlix, shree -Primary Dressing Covered/Secured with Dry Gauze,Dry Gauze & Roll Gauze,Secured with Tape Treatment Response Procedure Tolerated Well Pain Scale: 0-10 Numeric Is Patient Pain Free? Yes WC - Visit Discharge Discharge Condition Stable Ambulatory Status Wheelchair Transportation Private Auto Medication Reconcilliation completed & No provided to patient/care provider Clinical Summary of Care Provided Yes Assessment/Plan Assessment/Plan (1) Delayed wound healing: CODE(S): T14.8XXD - Other injury of unspecified body region, subsequent encounter (2) Charcot's joint of left foot: CODE(S): M14.672 - Charcot's joint, left ankle and foot (3) Type 2 diabetes mellitus with diabetic polyneuropathy: CODE(S): E11.42 - Type 2 diabetes mellitus with diabetic polyneuropathy QUALIFIERS: Diabetes mellitus retirement insulin use: with long term acute care registered nurse use Qualified Code(s): E11.42 - Type 2 diabetes mellitus with diabetic polyneuropathy; Z79.4 - alf (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 Debridement was performed as noted. She is reassured no local signs of infection are noted. Next, verbal consent was obtained for application of advanced wound healing product, epifix. This was applied according standard protocol was further secured with Steri-Strips and wound veil. She tolerated this well. The benefits indications and anticipated management were reviewed and discussed. She was advised to keep this clean, dry, and intact until follow-up next week. Vascular surgery intervention was performed successfully at [facility] recently with Dr. Pang w/ antioplasty at femoral through adductor into popliteal (balloon). To maintain non weightbearing status with the use of assistive devices (knee roller/walker when able secondary to shoulder fracture) left lower extremity. To use wheelchair with the assistance of the help of her . Imaging: X-rays were reviewed from prior emergency room visit in 07/2021. To continue nutritional supplementation to optimize healing. She is taking Blue and has also been trying to eat more fresh foods. She is working on more detailed diet planning with her primary care physician. F/u wound care center 1 week. I answered all of her questions. To call sooner or go to the emergency room if her clinical appearance worsens or if she develops systemic signs of illness. She is at risk for amputation and limb loss and systemic illness due to her comorbidities. Note: iMOSPHERE speech recognition dairy clerk software was used to create portions of this document. Sound-alike and misspelled words, as well as other dairy clerk errors may be contained in the documentation.
[2021-11-01 09:54] VITALS: BP 116/66; PULSE 69; RESP 18; TEMP 36.7
--- NOTE | 2021-11-01 10:36 | RAD_ITS ---
STUDY: XR Foot Min 3 Views CLINICAL: Female, 76 years old. ULCER TECHNIQUE: XR Foot Min 3 ViewsLEFT COMPARISON: Jul 28 2021 4:10pm FINDINGS: There is a plantar calcaneal spur. Proximal foot amputation noted. There is non-specific soft tissue swelling of the foot. There are atherosclerotic vascular calcifications. RAD/Foot min 3 Views IMPRESSION: There is non-specific soft tissue swelling of the foot. Electronically Signed: Jhoan Barrett MD at 16:36 EDT ,
--- NOTE | 2021-11-01 10:36 | RAD_ITS ---
EXAM: XR LEFT ANKLE COMPLETE, 3 OR MORE VIEWS CLINICAL INDICATION: ANKLE PAIN TECHNIQUE: Frontal, lateral and oblique views of the left ankle. This report was created using Criptext report generation technology. COMPARISON: None. FINDINGS: BONES/JOINTS: Proximal foot amputation noted. There is a plantar calcaneal spur. The visualized distal tibia and fibula are within normal limits. No acute fracture. No subluxation. Normal alignment. Preservation of the joint space. No sclerotic or destructive changes observed. SOFT TISSUES: There is non-specific soft tissue swelling of the foot. No radiopaque foreign body. VASCULATURE: There are atherosclerotic vascular calcifications. RAD/Ankle min 3 Views IMPRESSION: 1. Proximal foot amputation noted. 2. There is non-specific soft tissue swelling of the foot. Electronically Signed: Jhoan Barrett MD at 18:33 EDT ,
--- NOTE | 2021-11-01 16:18 | PN.PCM_ITS ---
History of Present Illness Date of Service: 11/01/21 Chief Complaint: Left foot History of Wound: This is 76-year-old female with diabetic neuropathy history of Charcot left foot with rocker-bottom deformity, coronary artery disease and other comorbidities has a recurrent ulcer. She has had delayed healing of her plantar foot ulcer secondary to rocker-bottom Charcot foot deformity, recurrent ulcers and infections. She completed left lower extremity vascular surgery intervention procedure and had this successfully completed at [facility] with Dr. Pang. He denies fever, chill, nausea, vomiting, calf pain, or diarrhea. She uses a wheelchair most of the time and reports continued com pliance. She has changed the dressing daily as advised. She denies odor. she has new pain to ankle and foot and denies new injuries, bruising or swelling. Progress of Wound: Improving Objective Data Objective Data Vital Signs: Vital Signs Temp Pulse Resp BP 98.1 F 69 18 116/66 11/01/21 09:54 11/01/21 09:54 11/01/21 09:54 11/01/21 09:54 Oxygen Delivery Method Room Air Physical Exam Narrative Left foot: Chopart amputation plantar central foot ulcer has no direct probe to bone, necrosis, odor, erythema, or purulence noted. Reduced depth and size noted. There is no cellulitis, no fluctuance or bogginess to the left foot. Negative Claudio and Elizondo sign left. Compartments remain soft to palpate left lower extremity. DP 2/4, left. deep probing noted. ulcer bed with granular base. no midfoot, subtalar or ankle laxity , calor, edema with manipulation. diffuse pain to palpate distal lateral fibula. negative anterior drawer test left ankle Debridement Note Debridement Note Wound debrided: left foot Wound Grade/Stage: 2 Type of Debridement: Excisional debridement Anesthesia Used: 4% Lidocaine Solution Depth: in the subcutaneous layer Percentage of wound debrided: 100 Instrument Used: #15 blade Tissue Removed: fibrous, devitalized subcutaneous, biofilm, slough Severity: Fat Layer Exposed Amount of bleeding with debridement: Mild Bleeding Controlled with: Pressure Patient tolerated procedure: Patient tolerated procedure well Post-Debridement Measurements and Additional Note: Post-Debridement Measurements/Treatment AMINAH - Nurse 1 - General Ulcer Assessment Start: 10/25/21 09:59 Freq: Status: Active Protocol: EUGENE Activity Type Activity Date Activity User E-Sign Co-Sign Detail Recorded Client Recorded Date Recorded By Document 10/25/21 09:59 [facility] Desktop 10/25/21 10:11 [facility] Document 11/01/21 09:54 DL [id number] 11/01/21 10:01 DL 10/25/21 11/01/21 09:59 09:54 - Today's Visit Information Type of service Follow-up Visit Follow-up Visit (Physician/ROTOR WINDER (Physician/ROTOR WINDER ) ) Arrival Mode Wheelchair Wheelchair Transfer Assistance Other Manual Transfer Assist (Other) 1 stand by x1 Patient Identification Verified (Name & Yes Yes ) Patient Requires Transmission-Based No Precautions Safety Precautions Fall Prevention Finger Stick Blood Sugar(mg/dl) (if 128 indicated): Blood Sugar Stated by Patient Vital Signs Temperature (97.8 F-99.1 F) 97.5 F L 98.1 F Temperature Source Temporal Temporal Pulse Rate (60-100) 73 69 Pulse Location Monitor Monitor Respiratory Rate (12-18) 16 18 Respiratory rate source Observation Observation Oxygen Delivery Method Room Air Blood Pressure (90/60-120/80) 154/48 H 116/66 Blood Pressure Mean (mm Hg) 83 82 Source Monitor Monitor Position Sitting Blood Pressure Location Left Arm History Since Last Visit- (Skip if this is Patient's initial visit) Have you changed medications since your No No last visit? Any new allergies or adverse reactions No No Had a fall/change in ADL's that may No No increase risk of falls Signs or symptoms of abuse and/or No No neglect since last visit Have you been in the hospital since your No No last visit? Has dressing in place as prescribed Yes Yes Has compression in place as prescribed N/A N/A Has offloadiing in place as prescribed No Yes Experienced any changes in pain level or No No management Left Footwear No Footwear Right Footwear Regular Shoe Other Footwear arjun to left foot Pain Scale: 0-10 Numeric Is Patient Pain Free? Yes Yes - Nurse 1 - General Ulcer Measurement Start: 10/25/21 09:59 Freq: Status: Active Protocol: Activity Type Activity Date Activity User E-Sign Co-Sign Detail Recorded Client Recorded Date Recorded By Document 10/25/21 09:59 [facility] Desktop 10/25/21 10:11 [facility] Document 11/01/21 09:54 DL [id number] 11/01/21 10:01 DL 10/25/21 11/01/21 09:59 09:54 Wound Center Nurse 1 10. L plantar -Combined with other wound No -Current Size (cm) - Length 0.8 0.5 -Current Size (cm) - Width 0.5 0.5 -Current Size (cm) - Depth 0.3 0.4 -Total Square Cm 0.40 0.25 -Date of Last Picture (Recall this 10/25/21 field) -Photo Taken Yes -Epithelialization Small 1-33% -Tunneling No -Undermining/Tunneling No Yes -Undermining/Tunneling Starts (O'clock 11 ) -Undermining/Tunneling Ends (O'clock) 1 -Maximum Distance (cm) 0.3 -Circular Undermining No -Exudate Amt Medium Medium -Exudate Type Serosanguineous -Wound Margin Distinct, Distinct, Outline Outline Attached Attached -Granulation Amt Large (67-100%) Medium (34-66%) -Granulation Quality Hyper- granulation,Red -Slough/Fibrin No Yes -Necrosis Amt None Present (0 Medium (34-66%) %) -Necrotic Tissue Type Adherent Slough -Texture (Shannon-wound Skin Appearance) Assessed,Callus Assessed ,Scarring -Moisture (Shannon-wound Skin Appearance) Assessed, Assessed Maceration,Dry/ Scaly -Color (Shannon-wound Skin Appearance) Assessed,Palor Assessed -Temperature (Shannon-wound Skin No Abnormality No Abnormality Appearance) (Pt Warm) (Pt Warm) -Tenderness on Palpation (Shannon-wound No Yes Skin Appearance) -Ulcer Cleansing Soap and Water Rinsed/ Irrigated with Saline -Foul Odor after Cleansing No No -Anesthetic Used 4% Lidocaine 5% Lidocaine Solution Gel WC - Nurse 2 - General Ulcer CM Notes Start: 10/25/21 09:59 Freq: Status: Active Protocol: Activity Type Activity Date Activity User E-Sign Co-Sign Detail Recorded Client Recorded Date Recorded By Document 10/25/21 10:23 [id number] 10/25/21 10:28 Document 11/01/21 10:21 [id number] 11/01/21 10:30 EULOGIO 10/25/21 11/01/21 10:23 10:21 Wound Center Nurse 2 10. L plantar -Time 10:25 10:21 -Correct Patient Yes Yes -Correct Side, Site, Position Yes Yes -Correct Procedure Yes Yes -Procedure Performed Yes Yes -Type of Procedure Debridement Debridement -Clinical Debridement Subcutaneous Subcutaneous -Tissue Removed Subcutaneous Subcutaneous -Post Debridement (cm) - Length 0.9 0.5 -Post Debridement (cm) - Width 0.5 0.6 -Post Debridement (cm) - Depth 0.3 0.4 -Total Square (Post) (cm) 0.45 0.30 -Area of Debridement (cm) - Length 0.9 0.5 -Area of Debridement (cm) - Width 0.5 0.6 -Total Square (Area) (cm) 0.45 0.30 -Tunneling No No -Undermining/Tunneling No No -Circular Undermining No No -Wound/Ulcer Outcome Not Healed Not Healed -Ulcer Cleansing Rinsed/ Rinsed/ Irrigated with Irrigated with Saline Saline -Foul Odor after Cleansing No No -Bioengineered Tissue Yes Yes -Type of Bioengineered Tissue Epifix 18mm Epifix 18mm Disc Disc -Expiration Date 07/25/26 07/25/26 -Product Lot Number [id number] -Percent Used 100 100 -Lot number of Saline Used -Bleeding Controlled with Pressure Pressure -Treatment Response Procedure Procedure Tolerated Well Tolerated Well -Offloading Yes Yes -Type of Offloading Knee Walker Surgical Shoe -Assistive Device(s) Wheelchair -Debridement - Subq, 1st 20sq cm No No -Apply Skin Sub - 1st 25 sq cm - Feet 1 1 -Epifix 18mm Disc 3 3 Pain Scale: 0-10 Numeric Is Patient Pain Free? Yes Yes WC - Nurse 3 - General Ulcer D/C NN Start: 10/25/21 09:59 Freq: Status: Active Protocol: Activity Type Activity Date Activity User E-Sign Co-Sign Detail Recorded Client Recorded Date Recorded By Document 10/25/21 10:33 RB [id number] 10/25/21 10:34 RB Document 11/01/21 10:30 JF [id number] 11/01/21 10:30 JF 10/25/21 11/01/21 10:33 10:30 Wound Care Nurse 3 10. L plantar -Ulcer Cleansing Rinsed/ Irrigated with Saline -Foul Odor after Cleansing No -Other Dressing abd, kerlix, arjun -Primary Dressing Covered/Secured with Dry Gauze,Dry Dry Gauze, Gauze & Roll Secured with Gauze,Secured Tape with Tape Left -Compression Wrap Arjun Wrap Treatment Response Procedure Tolerated Well Pain Scale: 0-10 Numeric Is Patient Pain Free? Yes Yes WC - Visit Discharge Discharge Condition Stable Stable Ambulatory Status Wheelchair Ambulatory, Wheelchair Transportation Private Auto Private Auto Medication Reconcilliation completed & No Yes provided to patient/care provider Clinical Summary of Care Provided Yes Yes Assessment/Plan Assessment/Plan (1) Delayed wound healing: CODE(S): T14.8XXD - Other injury of unspecified body region, subsequent encounter (2) Charcot's joint of left foot: CODE(S): M14.672 - Charcot's joint, left ankle and foot (3) Type 2 diabetes mellitus with diabetic polyneuropathy: CODE(S): E11.42 - Type 2 diabetes mellitus with diabetic polyneuropathy QUALIFIERS: Diabetes mellitus nursing home insulin use: with intermediate teacher use Qualified Code(s): E11.42 - Type 2 diabetes mellitus with diabetic polyneuropathy; Z79.4 - exterminator helper (current) use of insulin (4) Chronic ulcer of 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 Debridement was performed as noted. She is reassured no local signs of infection are noted. Next, verbal consent was obtained for application of advanced wound healing product, epifix. This was applied according standard protocol was further secured with Steri-Strips and wound veil. She tolerated this well. The benefits indications and anticipated management were reviewed and discussed. She was advised to keep this clean, dry, and intact until follow-up next week. Vascular surgery intervention was performed successfully at [facility] recently with Dr. Pang w/ antioplasty at femoral through adductor into popliteal (balloon). To maintain non weightbearing status with the use of assistive devices (knee roller/walker when able secondary to shoulder fracture) left lower extremity. To use wheelchair with the assistance of the help of her . Imaging: X-rays were reviewed from prior emergency room visit in 07/2021. uPdated xrays ordered due to pain and I will call her with the results. To continue nutritional supplementation to optimize healing. She is taking Blue and has also been trying to eat more fresh foods. She is working on more detailed diet planning with her primary care physician. F/u wound care center 1 week. She will be out of town and plans to return in two. I answered all of her questions. To call sooner or go to the emergency room if her clinical appearance worsens or if she develops systemic signs of illness. She is at risk for amputation and limb loss and systemic illness due to her c omorbidities. Note: ISpeak speech recognition veterinarian small animal software was used to create portions of this document. Sound-alike and misspelled words, as well as other veterinarian small animal errors may be contained in the documentation. 21 minutes was spent on this encounter. This included face to face and non face to face care including preparing for the visit, reviewing the history, performing the exam, counseling and providing education to the patient, family, or caregiver, ordering medications/test/ procedures if indicated as documented, communicating with other healthcare providers, documenting information in the medical record, interpreting / sharing this information when indicated as documented, and care coordination.
[2021-11-15 09:58] VITALS: BP 134/41; PULSE 82; RESP 18; TEMP 36.9
--- NOTE | 2021-11-15 11:15 | PN.PCM_ITS ---
History of Present Illness Date of Service: 11/15/21 Chief Complaint: Left foot History of Wound: This is 76-year-old female with diabetic neuropathy history of Charcot left foot with rocker-bottom deformity, coronary artery disease and other comorbidities has a recurrent ulcer. She has had delayed healing of her plantar foot ulcer secondary to rocker-bottom Charcot foot deformity, recurrent ulcers and infections. She completed left lower extremity vascular surgery intervention procedure and had this successfully completed at [facility] with Dr. Pang. He denies fever, chill, nausea, vomiting, calf pain, or diarrhea. She uses a wheelchair most of the time and reports continued compli ance. She has changed the dressing daily as advised. She denies odor. she denies pain. she has returned from her recent [place] trip and was able to stay off of it during the traveling. Progress of Wound: Improving Objective Data Objective Data Vital Signs: Vital Signs Temp Pulse Resp BP 98.5 F 82 18 134/41 H 11/15/21 09:58 11/15/21 09:58 11/15/21 09:58 11/15/21 09:58 Oxygen Delivery Method Room Air Physical Exam Narrative Left foot: Chopart amputation plantar central foot ulcer has no direct probe to bone, necrosis, odor, erythema, or purulence noted. Reduced depth and size noted. There is no cellulitis, no fluctuance or bogginess to the left foot. Negative Claudio and Elizondo sign left. Compartments remain soft to palpate left lower extremity. DP 2/4, left. deep probing noted. ulcer bed with granular base. no midfoot, subtalar or ankle laxity , calor, edema with manipulation. diffuse pain to palpate distal lateral fibula. decreased ulcer size Debridement Note Debridement Note Wound debrided: left foot Wound Grade/Stage: 2 Type of Debridement: Excisional debridement Anesthesia Used: 4% Lidocaine Solution Depth: in the subcutaneous layer Percentage of wound debrided: 100 Instrument Used: #15 blade Tissue Removed: fibrous, devitalized subcutaneous, biofilm, slough Severity: Fat Layer Exposed Amount of bleeding with debridement: Mild Bleeding Controlled with: Pressure Patient tolerated procedure: Patient tolerated procedure well Post-Debridement Measurements and Additional Note: Post-Debridement Measurements/Treatment AMINAH - Nurse 1 - General Ulcer Assessment Start: 10/25/21 09:59 Freq: Status: Active Protocol: WC.LOWEXT Activity Type Activity Date Activity User E-sign Co-sign Detail Recorded Client Recorded Date Recorded By Document 10/25/21 09:59 BMF Desktop 10/25/21 10:11 BMF Document 11/01/21 09:54 DL [id number] 11/01/21 10:01 DL Document 11/15/21 09:58 DL [id number] 11/15/21 10:06 DL 10/25/21 11/01/21 11/15/21 09:59 09:54 09:58 - Today's Visit Information Type of service Follow-up Visit Follow-up Visit Follow-up Visit (Physician/KOSHER INSPECTOR (Physician/KOSHER INSPECTOR (Physician/KOSHER INSPECTOR ) ) ) Arrival Mode Wheelchair Wheelchair Wheelchair Transfer Assistance Other Manual Manual Transfer Assist (Other) 1 stand by x1 x2 Patient Identification Verified (Name & Yes Yes Yes ) Patient Requires Transmission-Based No No Precautions Safety Precautions Fall Prevention Finger Stick Blood Sugar(mg/dl) (if 128 indicated): Blood Sugar Stated by Patient Vital Signs Temperature (97.8 F-99.1 F) 97.5 F L 98.1 F 98.5 F Temperature Source Temporal Temporal Temporal Pulse Rate (60-100) 73 69 82 Pulse Location Monitor Monitor Monitor Respiratory Rate (12-18) 16 18 18 Respiratory rate source Observation Observation Observation Oxygen Delivery Method Room Air Blood Pressure (90/60-120/80) 154/48 H 116/66 134/41 H Blood Pressure Mean (mm Hg) 83 82 72 Source Monitor Monitor Monitor Position Sitting Blood Pressure Location Left Arm History Since Last Visit- (Skip if this is Patient's initial visit) Have you changed medications since your No No No last visit? Any new allergies or adverse reactions No No No Had a fall/change in ADL's that may No No No increase risk of falls Signs or symptoms of abuse and/or No No No neglect since last visit Have you been in the hospital since your No No No last visit? Has dressing in place as prescribed Yes Yes No Has compression in place as prescribed N/A N/A Yes Has offloadiing in place as prescribed No Yes Yes Experienced any changes in pain level or No No No management Left Footwear No Footwear Right Footwear Regular Shoe Other Footwear arjun to left foot Pain Scale: 0-10 Numeric Is Patient Pain Free? Yes Yes Yes - Nurse 1 - General Ulcer Measurement Start: 10/25/21 09:59 Freq: Status: Active Protocol: Activity Type Activity Date Activity User E-sign Co-sign Detail Recorded Client Recorded Date Recorded By Document 10/25/21 09:59 [facility] Desktop 10/25/21 10:11 BMF Document 11/01/21 09:54 DL [id number] 11/01/21 10:01 DL Document 11/15/21 09:58 DL [id number] 11/15/21 10:06 DL 10/25/21 11/01/21 11/15/21 09:59 09:54 09:58 Wound Center Nurse 1 10. L plantar -Combined with other wound No -Current Size (cm) - Length 0.8 0.5 0.4 -Current Size (cm) - Width 0.5 0.5 0.5 -Current Size (cm) - Depth 0.3 0.4 0.5 -Total Square Cm 0.40 0.25 0.20 -Date of Last Picture (Recall this 10/25/21 field) -Photo Taken Yes No -Epithelialization Small 1-33% -Tunneling No -Undermining/Tunneling No Yes -Undermining/Tunneling Starts (O'clock 11 ) -Undermining/Tunneling Ends (O'clock) 1 -Maximum Distance (cm) 0.3 -Circular Undermining No -Exudate Amt Medium Medium Small -Exudate Type Serosanguineous Serosanguineous -Wound Margin Distinct, Distinct, Distinct, Outline Outline Outline Attached Attached Attached -Granulation Amt Large (67-100%) Medium (34-66%) Medium (34-66%) -Granulation Quality Hyper- [place] granulation,Red -Slough/Fibrin No Yes -Necrosis Amt None Present (0 Medium (34-66%) Medium (34-66%) %) -Necrotic Tissue Type Adherent Slough Adherent Slough -Structure Exposed N/A -Texture (Shannon-wound Skin Appearance) Assessed,Callus Assessed Callus,Scarring ,Scarring -Moisture (Shannon-wound Skin Appearance) Assessed, Assessed Dry/Scaly Maceration,Dry/ Scaly -Color (Shannon-wound Skin Appearance) Assessed,Palor Assessed No Abnormality -Temperature (Shannon-wound Skin No Abnormality No Abnormality No Abnormality Appearance) (Pt Warm) (Pt Warm) (Pt Warm) -Tenderness on Palpation (Shannon-wound No Yes No Skin Appearance) -Ulcer Cleansing Soap and Water Rinsed/ Soap and Water Irrigated with Saline -Foul Odor after Cleansing No No No -Anesthetic Used 4% Lidocaine 5% Lidocaine 5% Lidocaine Solution Gel Gel WC - Nurse 2 - General Ulcer CM Notes Start: 10/25/21 09:59 Freq: Status: Active Protocol: Activity Type Activity Date Activity User E-sign Co-sign Detail Recorded Client Recorded Date Recorded By Document 10/25/21 10:23 [id number] 10/25/21 10:28 Document 11/01/21 10:21 [id number] 11/01/21 10:30 Document 11/15/21 10:16 [id number] 11/15/21 10:20 10/25/21 11/01/21 11/15/21 10:23 10:21 10:16 Wound Center Nurse 2 10. L plantar -Time 10:25 10:21 10:16 -Correct Patient Yes Yes Yes -Correct Side, Site, Position Yes Yes Yes -Correct Procedure Yes Yes Yes -Procedure Performed Yes Yes Yes -Type of Procedure Debridement Debridement Debridement -Clinical Debridement Subcutaneous Subcutaneous Subcutaneous -Tissue Removed Subcutaneous Subcutaneous Subcutaneous -Post Debridement (cm) - Length 0.9 0.5 0.4 -Post Debridement (cm) - Width 0.5 0.6 0.4 -Post Debridement (cm) - Depth 0.3 0.4 0.3 -Total Square (Post) (cm) 0.45 0.30 0.16 -Area of Debridement (cm) - Length 0.9 0.5 0.4 -Area of Debridement (cm) - Width 0.5 0.6 0.4 -Total Square (Area) (cm) 0.45 0.30 0.16 -Tunneling No No No -Undermining/Tunneling No No -Circular Undermining No No No -Wound/Ulcer Outcome Not Healed Not Healed Not Healed -Ulcer Cleansing Rinsed/ Rinsed/ Rinsed/ Irrigated with Irrigated with Irrigated with Saline Saline Saline -Foul Odor after Cleansing No No No -Bioengineered Tissue Yes Yes Yes -Type of Bioengineered Tissue Epifix 18mm Epifix 18mm Epifix 18mm Disc Disc Disc -Expiration Date 07/25/26 07/25/26 08/25/26 -Product Lot Number [id number] -Percent Used 100 100 100 -Lot number of Saline Used [id number] -Bleeding Controlled with Pressure Pressure Pressure -Treatment Response Procedure Procedure Procedure Tolerated Well Tolerated Well Tolerated Well -Offloading Yes Yes Yes -Type of Offloading Knee Walker Surgical Shoe Surgical Shoe -Assistive Device(s) Wheelchair Wheelchair -Debridement - Subq, 1st 20sq cm No No No -Apply Skin Sub - 1st 25 sq cm - Feet 1 1 1 -Epifix 18mm Disc 3 3 3 Pain Scale: 0-10 Numeric Is Patient Pain Free? Yes Yes Yes - Nurse 3 - General Ulcer D/C NN Start: 10/25/21 09:59 Freq: Status: Active Protocol: Activity Type Activity Date Activity User E-sign Co-sign Detail Recorded Client Recorded Date Recorded By Document 10/25/21 10:33 RB [id number] 10/25/21 10:34 RB Document 11/01/21 10:30 JF [id number] 11/01/21 10:30 JF Document 11/15/21 10:32 DL [id number] 11/15/21 10:33 DL 10/25/21 11/01/21 11/15/21 10:33 10:30 10:32 Wound Care Nurse 3 10. L plantar -Ulcer Cleansing Rinsed/ Not Cleansed Irrigated with Saline -Foul Odor after Cleansing No No -Other Dressing abd, kerlix, Epifix arjun -Primary Dressing Covered/Secured with Dry Gauze,Dry Dry Gauze, Dry Gauze & Gauze & Roll Secured with Roll Gauze, Gauze,Secured Tape Secured with with Tape Tape Left -Compression Wrap Arjun Wrap Treatment Response Procedure Procedure Tolerated Well Tolerated Well Pain Scale: 0-10 Numeric Is Patient Pain Free? Yes Yes Yes WC - Visit Discharge Discharge Condition Stable Stable Stable Ambulatory Status Wheelchair Ambulatory, Wheelchair Wheelchair Transportation Private Auto Private Auto Private Auto Medication Reconcilliation completed & No Yes provided to patient/care provider Clinical Summary of Care Provided Yes Yes Facility Type Home Health Orders Sent Yes Assessment/Plan Assessment/Plan (1) Delayed wound healing: CODE(S): T14.8XXD - Other injury of unspecified body region, subsequent encounter (2) Charcot's joint of left foot: CODE(S): M14.672 - Charcot's joint, left ankle and foot (3) Type 2 diabetes mellitus with diabetic polyneuropathy: CODE(S): E11.42 - Type 2 diabetes mellitus with diabetic polyneuropathy QUALIFIERS: Diabetes mellitus exterminator insulin use: with senior care use Qualified Code(s): E11.42 - Type 2 diabetes mellitus with diabetic polyneuropathy; Z79.4 - salvage determiner (current) use of insulin (4) Chronic ulcer of left foot with fat layer exposed: CODE(S): L97.522 - Non-pressure chronic ulcer of other part of left foot with fat layer exposed (5) Chronic ulcer of left foot with necrosis of muscle: CODE(S): L97.523 - Non-pressure chronic ulcer of other part of left foot with necrosis of muscle (6) Left ankle pain: CODE(S): M25.572 - Pain in left ankle and joints of left foot PLAN: Plan I reviewed and discussed her case. Debridement was performed as noted. She is reassured no local signs of infection are noted. Next, verbal consent was obtained for application of advanced wound healing product, epifix. This was applied according standard protocol was further secured with Steri-Strips and wound veil. She tolerated this well. The benefits indications and anticipated management were reviewed and discussed. She was advised to keep this clean, dry, and intact until follow-up next week. Vascular surgery intervention was performed successfully at [facility] recently with Dr. Pang w/ antioplasty at femoral through adductor into popliteal (balloon). To maintain non weightbearing status with the use of assistive devices (knee roller/walker when able secondary to shoulder fracture) left lower extremity. To use wheelchair with the assistance of the help of her . Imaging: X-rays were reviewed from prior emergency room visit in 07/2021. uPdated xrays ordered due to pain and I will call her with the results. To continue nutritional supplementation to optimize healing. She is taking Blue and has also been trying to eat more fresh foods. She is working on more detailed diet planning with her primary care physician. F/u wound care center 1 week. She will be out of town and plans to return in two. I answered all of her questions. To call sooner or go to the emergency room if her clinical appearance worsens or if she develops systemic signs of illness. She is at risk for amputation and limb loss and systemic illness due to her comorbidities. Note: iPositioning speech recognition dining service inspector software was used to create portions of this document. Sound-alike and misspelled words, as well as other dining service inspector errors may be contained in the documentation.
[2021-11-22 10:14] VITALS: BP 113/62; PULSE 71; RESP 18; TEMP 36.9
--- NOTE | 2021-11-22 10:40 | PCM.WC.PN ---
History of Present Illness Date of Service: 11/22/21 Chief Complaint: Left foot History of Wound: This is 76-year-old female with diabetic neuropathy history of Charcot left foot with rocker-bottom deformity, coronary artery disease and other comorbidities has a recurrent ulcer. She has had delayed healing of her plantar foot ulcer secondary to rocker-bottom Charcot foot deformity, recurrent ulcers and infections. She completed left lower extremity vascular surgery intervention procedure and had this successfully completed at [facility] with Dr. Pang. He denies fever, chill, nausea, vomiting, calf pain, or diarrhea. She uses a wheelchair most of the time and reports continued compliance. She has changed the dressing daily as advised. She denies odor. she denies pain. She has a blister and denies injury. She went to a family picnic for four hours this weekend. Her foot is in prolonged contact with her scooter foot plate at times. Progress of Wound: Improving Objective Data Objective Data Vital Signs: Vital Signs Temp Pulse Resp BP O2 Del Method 98.5 F 71 18 113/62 Room Air 11/22/21 10:14 11/22/21 10:14 11/22/21 10:14 11/22/21 10:14 10/25/21 09:59 Oxygen Delivery Method Room Air Physical Exam Narrative Left foot: Chopart amputation plantar central foot ulcer has no direct probe to bone, necrosis, odor, erythema, or purulence noted. Reduced depth and size noted. There is no cellulitis, no fluctuance or bogginess to the left foot. Negative Claudio and Elizondo sign left. Compartments remain soft to palpate left lower extremity. DP 2/4, left. deep probing noted. ulcer bed with granular base. no midfoot, subtalar or ankle laxity , calor, edema with manipulation. diffuse pain to palpate distal lateral fibula. decreased ulcer size. Blister with serous drainage noted to the central foot; skin left intact and biological barrier. There are no local signs infection Debridement Note Debridement Note Wound debrided: left foot Wound Grade/Stage: 2 Type of Debridement: Excisional debridement Anesthesia Used: 4% Lidocaine Solution Depth: in the subcutaneous layer Percentage of wound debrided: 100 Instrument Used: #15 blade Tissue Removed: fibrous, devitalized subcutaneous, biofilm, slough Severity: Fat Layer Exposed Amount of bleeding with debridement: Mild Bleeding Controlled with: Pressure Patient tolerated procedure: Patient tolerated procedure well Post-Debridement Measurements and Additional Note: Post-Debridement Measurements/Treatment - Nurse 1 - General Ulcer Assessment Start: 10/25/21 09:59 Freq: Status: Active Protocol: EUGENE Activity Type Activity Date Activity User E-sign Co-sign Detail Recorded Client Recorded Date Recorded By Document 10/25/21 09:59 BM[facility] Desktop 10/25/21 10:11 BMF Document 11/01/21 09:54 DL [id number] 11/01/21 10:01 DL Document 11/15/21 09:58 DL [id number] 11/15/21 10:06 DL Document 11/22/21 10:14 DL [id number] 11/22/21 10:21 DL 10/25/21 11/01/21 11/15/21 09:59 09:54 09:58 - Today's Visit Information Type of service Follow-up Visit Follow-up Visit Follow-up Visit (Physician/PAINTER AIRBRUSH (Physician/PAINTER AIRBRUSH (Physician/PAINTER AIRBRUSH ) ) ) Arrival Mode Wheelchair Wheelchair Wheelchair Transfer Assistance Other Manual Manual Transfer Assist (Other) 1 stand by x1 x2 Patient Identification Verified (Name & Yes Yes Yes ) Patient Requires Transmission-Based No No Precautions Safety Precautions Fall Prevention Finger Stick Blood Sugar(mg/dl) (if 128 indicated): Blood Sugar Stated by Patient Vital Signs Temperature (97.8 F-99.1 F) 97.5 F L 98.1 F 98.5 F Temperature Source Temporal Temporal Temporal Pulse Rate (60-100) 73 69 82 Pulse Location Monitor Monitor Monitor Respiratory Rate (12-18) 16 18 18 Respiratory rate source Observation Observation Observation Oxygen Delivery Method Room Air Blood Pressure (90/60-120/80) 154/48 H 116/66 134/41 H Blood Pressure Mean (mm Hg) 83 82 72 Source Monitor Monitor Monitor Position Sitting Blood Pressure Location Left Arm History Since Last Visit- (Skip if this is Patient's initial visit) Have you changed medications since your No No No last visit? Any new allergies or adverse reactions No No No Had a fall/change in ADL's that may No No No increase risk of falls Signs or symptoms of abuse and/or No No No neglect since last visit Have you been in the hospital since your No No No last visit? Has dressing in place as prescribed Yes Yes No Has compression in place as prescribed N/A N/A Yes Has offloadiing in place as prescribed No Yes Yes Experienced any changes in pain level or No No No management Left Footwear No Footwear Right Footwear Regular Shoe Other Footwear arjun to left foot Pain Scale: 0-10 Numeric Is Patient Pain Free? Yes Yes Yes 11/22/21 10:14 - Today's Visit Information Type of service Follow-up Visit (Physician/PAINTER AIRBRUSH ) Arrival Mode Ambulatory Transfer Assistance None Transfer Assist (Other) Patient Identification Verified (Name & Yes ) Patient Requires Transmission-Based No Precautions Safety Precautions Finger Stick Blood Sugar(mg/dl) (if indicated): Blood Sugar Vital Signs Temperature (97.8 F-99.1 F) 98.5 F Temperature Source Temporal Pulse Rate (60-100) 71 Pulse Location Apical Respiratory Rate (12-18) 18 Respiratory rate source Observation Oxygen Delivery Method Blood Pressure (90/60-120/80) 113/62 Blood Pressure Mean (mm Hg) 79 Source Monitor Position Blood Pressure Location History Since Last Visit- (Skip if this is Patient's initial visit) Have you changed medications since your No last visit? Any new allergies or adverse reactions No Had a fall/change in ADL's that may No increase risk of falls Signs or symptoms of abuse and/or No neglect since last visit Have you been in the hospital since your No last visit? Has dressing in place as prescribed Yes Has compression in place as prescribed No Has offloadiing in place as prescribed N/A Experienced any changes in pain level or No management Left Footwear Right Footwear Other Footwear Pain Scale: 0-10 Numeric Is Patient Pain Free? Yes - Nurse 1 - General Ulcer Measurement Start: 10/25/21 09:59 Freq: Status: Active Protocol: Activity Type Activity Date Activity User E-sign Co-sign Detail Recorded Client Recorded Date Recorded By Document 10/25/21 09:59 [facility] Desktop 10/25/21 10:11 [facility] Document 11/01/21 09:54 DL [id number] 11/01/21 10:01 DL Document 11/15/21 09:58 DL [id number] 11/15/21 10:06 DL Document 11/22/21 10:14 DL [id number] 11/22/21 10:21 DL 10/25/21 11/01/21 11/15/21 09:59 09:54 09:58 Wound Center Nurse 1 10. L plantar -Combined with other wound No -Current Size (cm) - Length 0.8 0.5 0.4 -Current Size (cm) - Width 0.5 0.5 0.5 -Current Size (cm) - Depth 0.3 0.4 0.5 -Total Square Cm 0.40 0.25 0.20 -Date of Last Picture (Recall this 10/25/21 field) -Photo Taken Yes No -Epithelialization Small 1-33% -Tunneling No -Undermining/Tunneling No Yes -Undermining/Tunneling Starts (O'clock 11 ) -Undermining/Tunneling Ends (O'clock) 1 -Maximum Distance (cm) 0.3 -Maximum Distance #2 (cm) -Circular Undermining No -Exudate Amt Medium Medium Small -Exudate Type Serosanguineous Serosanguineous -Wound Margin Distinct, Distinct, Distinct, Outline Outline Outline Attached Attached Attached -Granulation Amt Large (67-100%) Medium (34-66%) Medium (34-66%) -Granulation Quality Hyper- [place]onder[place] granulation,Red -Slough/Fibrin No Yes -Necrosis Amt None Present (0 Medium (34-66%) Medium (34-66%) %) -Necrotic Tissue Type Adherent Slough Adherent Slough -Structure Exposed N/A -Texture (Shannon-wound Skin Appearance) Assessed,Callus Assessed Callus,Scarring ,Scarring -Moisture (Shannon-wound Skin Appearance) Assessed, Assessed Dry/Scaly Maceration,Dry/ Scaly -Color (Shannon-wound Skin Appearance) Assessed,Palor Assessed No Abnormality -Temperature (Shannon-wound Skin No Abnormality No Abnormality No Abnormality Appearance) (Pt Warm) (Pt Warm) (Pt Warm) -Tenderness on Palpation (Shannon-wound No Yes No Skin Appearance) -Ulcer Cleansing Soap and Water Rinsed/ Soap and Water Irrigated with Saline -Foul Odor after Cleansing No No No -Anesthetic Used 4% Lidocaine 5% Lidocaine 5% Lidocaine Solution Gel Gel 11/22/21 10:14 Wound Center Nurse 1 10. L plantar -Combined with other wound -Current Size (cm) - Length 0.2 -Current Size (cm) - Width 0.2 -Current Size (cm) - Depth 0.5 -Total Square Cm 0.04 -Date of Last Picture (Recall this field) -Photo Taken No -Epithelialization -Tunneling -Undermining/Tunneling -Undermining/Tunneling Starts (O'clock ) -Undermining/Tunneling Ends (O'clock) -Maximum Distance (cm) -Maximum Distance #2 (cm) 0.3 -Circular Undermining Yes -Exudate Amt Small -Exudate Type Serosanguineous -Wound Margin -Granulation Amt -Granulation Quality Hyper- granulation, [place]onder[place] -Slough/Fibrin -Necrosis Amt Small (1-33%) -Necrotic Tissue Type Adherent Slough -Structure Exposed N/A -Texture (Shannon-wound Skin Appearance) Callus,Scarring -Moisture (Shannon-wound Skin Appearance) Maceration -Color (Shannon-wound Skin Appearance) No Abnormality -Temperature (Shannon-wound Skin No Abnormality Appearance) (Pt Warm) -Tenderness on Palpation (Shannon-wound No Skin Appearance) -Ulcer Cleansing Soap and Water -Foul Odor after Cleansing No -Anesthetic Used 5% Lidocaine Gel WC - Nurse 2 - General Ulcer CM Notes Start: 10/25/21 09:59 Freq: Status: Active Protocol: Activity Type Activity Date Activity User E-sign Co-sign Detail Recorded Client Recorded Date Recorded By Document 10/25/21 10:23 [id number] 10/25/21 10:28 Document 11/01/21 10:21 [id number] 11/01/21 10:30 Document 11/15/21 10:16 [id number] 11/15/21 10:20 Document 11/22/21 10:33 PL [id number] 11/22/21 10:34 PL 10/25/21 11/01/21 11/15/21 10:23 10:21 10:16 Wound Center Nurse 2 10. L plantar -Time 10:25 10:21 10:16 -Correct Patient Yes Yes Yes -Correct Side, Site, Position Yes Yes Yes -Correct Procedure Yes Yes Yes -Procedure Performed Yes Yes Yes -Type of Procedure Debridement Debridement Debridement -Clinical Debridement Subcutaneous Subcutaneous Subcutaneous -Tissue Removed Subcutaneous Subcutaneous Subcutaneous -Post Debridement (cm) - Length 0.9 0.5 0.4 -Post Debridement (cm) - Width 0.5 0.6 0.4 -Post Debridement (cm) - Depth 0.3 0.4 0.3 -Total Square (Post) (cm) 0.45 0.30 0.16 -Area of Debridement (cm) - Length 0.9 0.5 0.4 -Area of Debridement (cm) - Width 0.5 0.6 0.4 -Total Square (Area) (cm) 0.45 0.30 0.16 -Tunneling No No No -Undermining/Tunneling No No -Circular Undermining No No No -Wound/Ulcer Outcome Not Healed Not Healed Not Healed -Ulcer Cleansing Rinsed/ Rinsed/ Rinsed/ Irrigated with Irrigated with Irrigated with Saline Saline Saline -Foul Odor after Cleansing No No No -Bioengineered Tissue Yes Yes Yes -Type of Bioengineered Tissue Epifix 18mm Epifix 18mm Epifix 18mm Disc Disc Disc -Expiration Date 07/25/26 07/25/26 08/25/26 -Product Lot Number [id number] -Percent Used 100 100 100 -Lot number of Saline Used [id number] -Bleeding Controlled with Pressure Pressure Pressure -Treatment Response Procedure Procedure Procedure Tolerated Well Tolerated Well Tolerated Well -Offloading Yes Yes Yes -Type of Offloading Knee Walker Surgical Shoe Surgical Shoe -Assistive Device(s) Wheelchair Wheelchair -Debridement - Subq, 1st 20sq cm No No No -Apply Skin Sub - 1st 25 sq cm - Feet 1 1 1 -Epifix 18mm Disc 3 3 3 Pain Scale: 0-10 Numeric Is Patient Pain Free? Yes Yes Yes 11/22/21 10:33 Wound Center Nurse 2 10. L plantar -Time 10:26 -Correct Patient Yes -Correct Side, Site, Position Yes -Correct Procedure Yes -Procedure Performed Yes -Type of Procedure Debridement -Clinical Debridement Subcutaneous -Tissue Removed Subcutaneous -Post Debridement (cm) - Length 0.2 -Post Debridement (cm) - Width 0.2 -Post Debridement (cm) - Depth 0.5 -Total Square (Post) (cm) 0.04 -Area of Debridement (cm) - Length 0.2 -Area of Debridement (cm) - Width 0.2 -Total Square (Area) (cm) 0.04 -Tunneling No -Undermining/Tunneling No -Circular Undermining No -Wound/Ulcer Outcome Not Healed -Ulcer Cleansing Rinsed/ Irrigated with Saline -Foul Odor after Cleansing No -Bioengineered Tissue No -Type of Bioengineered Tissue -Expiration Date -Product Lot Number -Percent Used -Lot number of Saline Used -Bleeding Controlled with Pressure -Treatment Response Procedure Tolerated Well -Offloading -Type of Offloading -Assistive Device(s) -Debridement - Subq, 1st 20sq cm Yes -Apply Skin Sub - 1st 25 sq cm - Feet -Epifix 18mm Disc Pain Scale: 0-10 Numeric Is Patient Pain Free? Yes - Nurse 3 - General Ulcer D/C NN Start: 10/25/21 09:59 Freq: Status: Active Protocol: Activity Type Activity Date Activity User E-sign Co-sign Detail Recorded Client Recorded Date Recorded By Document 10/25/21 10:33 RB [id number] 10/25/21 10:34 RB Document 11/01/21 10:30 JF [id number] 11/01/21 10:30 JF Document 11/15/21 10:32 DL [id number] 11/15/21 10:33 DL 10/25/21 11/01/21 11/15/21 10:33 10:30 10:32 Wound Care Nurse 3 10. L plantar -Ulcer Cleansing Rinsed/ Not Cleansed Irrigated with Saline -Foul Odor after Cleansing No No -Other Dressing abd, kerlix, Epifix arjun -Primary Dressing Covered/Secured with Dry Gauze,Dry Dry Gauze, Dry Gauze & Gauze & Roll Secured with Roll Gauze, Gauze,Secured Tape Secured with with Tape Tape Left -Compression Wrap Arjun Wrap Treatment Response Procedure Procedure Tolerated Well Tolerated Well Pain Scale: 0-10 Numeric Is Patient Pain Free? Yes Yes Yes - Visit Discharge Discharge Condition Stable Stable Stable Ambulatory Status Wheelchair Ambulatory, Wheelchair Wheelchair Transportation Private Auto Private Auto Private Auto Medication Reconcilliation completed & No Yes provided to patient/care provider Clinical Summary of Care Provided Yes Yes Facility Type Home Health Orders Sent Yes Assessment/Plan Assessment/Plan (1) Delayed wound healing: CODE(S): T14.8XXD - Other injury of unspecified body region, subsequent encounter (2) Charcot's joint of left foot: CODE(S): M14.672 - Charcot's joint, left ankle and foot (3) Type 2 diabetes mellitus with diabetic polyneuropathy: CODE(S): E11.42 - Type 2 diabetes mellitus with diabetic polyneuropathy QUALIFIERS: Diabetes mellitus exterminator insulin use: with exterminator use Qualified Code(s): E11.42 - Type 2 diabetes mellitus with diabetic polyneuropathy; Z79.4 - terminal press operator (current) use of insulin (4) Chronic ulcer of left foot with fat layer exposed: CODE(S): L97.522 - Non-pressure chronic ulcer of other part of left foot with fat layer exposed (5) Chronic ulcer of left foot with necrosis of muscle: CODE(S): L97.523 - Non-pressure chronic ulcer of other part of left foot with necrosis of muscle (6) Left ankle pain: CODE(S): M25.572 - Pain in left ankle and joints of left foot (7) Blister (nonthermal), left foot, initial encounter: CODE(S): S90.822A - Blister (nonthermal), left foot, initial encounter PLAN: Plan I reviewed and discussed her case. Debridement was performed as noted. She is reassured no local signs of infection are noted. She completed a full course of advanced wound healing product application, epi fix. To wash daily with antibacterial soap and water. To change dressing daily with Lotus. Vascular surgery intervention was performed successfully at [facility] recently with Dr. Pang w/ antioplasty at femoral through adductor into popliteal (balloon). To maintain non weightbearing status with the use of assistive devices (knee roller/walker when able secondary to shoulder fracture) left lower extremity. To use wheelchair with the assistance of the help of her . She was advised to avoid direct contact and pressure on the footplate while seated or in her wheelchair because this may have contributed to blister formation. Imaging: X-rays were reviewed from prior emergency room visit in 07/2021. uPdated xrays ordered due to pain and I will call her with the results. To continue nutritional supplementation to optimize healing. She is taking Blue and has also been trying to eat more fresh foods. She is working on more detailed diet planning with her primary care physician. F/u wound care center 1 week. She will be out of town and plans to return in two. I answered all of her questions. To call sooner or go to the emergency room if her clinical appearance worsens or if she develops systemic signs of illness. She is at risk for amputation and limb loss and systemic illness due to her comorbidities. Note: DNage speech recognition certified medical transcriptionist software was used to create portions of this document. Sound-alike and misspelled words, as well as other certified medical transcriptionist errors may be contained in the documentation. Her blisters noted and alcohol was used to clean the area. Verbal consent was obtained and the site was drained. The skin was left intact as a biological barrier. Additional condition addressed today. The medical decision making level is low. There is noted low risk of morbidity after considering this treatment plan and diagnostic data. The problems addressed require a low medical decision making level which includes two or more minor problems, a stable chronic illness, or an acute uncomplicated illness or injury.
== END 2021-11-23 23:59 | disposition home or self-care (01) ==
LOC: WC 10:00
PROVIDERS: PCP Family Medicine; Referring Provider Podiatrist; Visit Provider Podiatrist
DX: E11.621 Type 2 diabetes mellitus with foot ulcer (principal); L97.522 Non-pressure chronic ulcer of other part of left foot with fat layer exposed; E11.42 Type 2 diabetes mellitus with diabetic polyneuropathy; E11.610 Type 2 diabetes mellitus with diabetic neuropathic arthropathy; Z79.4 Long term (current) use of insulin; S90.822A Blister (nonthermal), left foot, initial encounter; I25.10 Atherosclerotic heart disease of native coronary artery without angina pectoris; M25.572 Pain in left ankle and joints of left foot; Z79.82 Long term (current) use of aspirin; Z79.02 Long term (current) use of antithrombotics/antiplatelets; Z79.899 Other long term (current) drug therapy
CPT/HCPCS: 11042; 15275; 73610; 73630; Q4186

== ENCOUNTER → 2021-11-24 | Outpatient (CLI) | payer MEDICARE, OTHER, SELFPAY ==
--- NOTE | 2021-11-24 09:08 | ART_ITS ---
Reason For Study: PVD Procedure A bilateral lower extremity continuous wave Doppler with analog waveform analysis and ankle brachial indexes. Left Segmental Pressures Left brachial= 166mmHg. Left posterior tibial artery = 85mmHg. Left dorsalis pedis artery = 197mmHg. Right Segmental Pressures Right brachial= 149mmHg. Right posterior tibial artery = 131mmHg. Right dorsalis pedis artery = 120mmHg. Indices The right ankle brachial index by the posterior tibial artery is 0.79. The right ankle brachial index by the dorsalis pedis is 0.72. The left ankle brachial index by the posterior tibial artery is 0.51. The left ankle brachial index by the dorsalis pedis is 1.19. VL/Ankle Brachial Index Interpretation Summary Right lower extremity mild occlusive disease with an JOSE E 0.79 and trihasic flow . Left lower extremity with no significant occlusive disease at rest with an JOSE E 1.19 at the dorsalis pedis and triphasic flow. But 0.51 the posterior tibial. Ordering Physician: Aman Pang Referring Physician: Aman Pang Performed By: Joyce Wahl RDCS/RVT
--- NOTE | 2021-11-24 09:09 | ADUL_ITS ---
Reason For Study: PVD Left Velocities Ext Iliac Artery, dist = 153 cm./sec. Common Femoral Artery, mid = 139 cm./sec. Supf. Femoral Artery, prox = 100 cm./sec. Supf. Femoral Artery, mid = 145 cm./sec. Supf. Femoral Artery, dist = 86 cm./sec. Profunda Femoral Artery = 126 cm./sec. Popliteal Artery, mid = 75 cm./sec. No Flow noted Lt CONCRETE PANEL INSTALLER and Lt PeroA prox/mid. Ant.Tibial Artery, prox = 109 cm./sec. Ant Tibial Artery, mid = 158 cm./sec. Ant. Tibial Artery, distal = 168 cm./sec. Peroneal Artery,dist. = 17 cm./sec. Procedure Exam performed in department. /US Art Duplex Unilat Lower Ext Interpretation Summary Left femoral and popliteal patent with no stenosis noted. Left posterior tibial and peroneal arteries show areas of occlusion. Elevated velocities in the anterior tibial ar catherine but appear to have triphasic flow for mild to the ankle. Ordering Physician: Aman Pang Referring Physician: Con Johnson Performed By: Joyce Wahl, SIA, RVT
--- NOTE | 2021-11-24 09:19 | ART_ITS ---
Reason For Study: Subclavian Steal Procedure A bilateral upper extremity continuous wave Doppler with analog waveform analysis and segmental pressures. Left Segmental Pressures Left brachial= 166mmHg. Left radial= 183mmHg. Left ulnar= 181mmHg. Left digit = 149 mmHg. Right Segmental Pressures Right brachial= 149mmHg. Right radial= 174mmHg. Right ulnar= 167mmHg. Right digit = 134 mmHg. Indices The right wrist-brachial index is 1.05. The right digital-brachial index is 0.81. The left wrist- brachial index is 1.10. The left digital-brachial index is 0.90. VL/Ankle Brachial Index Interpretation Summary Lateral upper extremity with no significant occlusive disease at rest with a wr ist brachial index of 1.05 and 1.1. Ordering Physician: Aman Pang Referring Physician: Aman Pang Performed By: Joyce Wahl RDCS/RVT
--- NOTE | 2021-11-24 09:19 | ADUUE_ITS ---
Reason For Study: Subclavian Steal RIGHT Right Subclavian velocity = 128 cm/sec. Right Axillary velocity = 106 cm/sec. Right Brachial velocity = 126 cm/sec. Right Radial velocity = 102 cm/sec. Right Ulnar velocity = 82 cm/sec. VL/US Art Duplex Unilat UP Extrem Interpretation Summary Right upper extremity with triphasic flow throughout with no stenosis noted. Ordering Physician: Aman Pang Referring Physician: Con Johnson Performed By: Joyce Wahl, ISA, RVT
== END | disposition home or self-care (01) ==
LOC: CVS 09:07
PROVIDERS: PCP Family Medicine; Referring Provider Surgery Vascular Surgery; Visit Provider Surgery Vascular Surgery
DX: I73.89 Other specified peripheral vascular diseases (principal); G45.8 Other transient cerebral ischemic attacks and related syndromes; Z48.812 Encounter for surgical aftercare following surgery on the circulatory system
CPT/HCPCS: 93922; 93926; 93931

== ENCOUNTER → 2021-12-05 | Outpatient (CLI) | payer MEDICARE, OTHER, SELFPAY ==
--- NOTE | 2021-12-05 16:08 | RAD_ITS ---
STUDY: X-RAY - ABDOMEN/PELVIS REASON FOR EXAM: Female, 76 years old. abd pain TECHNIQUE: Single AP view of the abdomen / pelvis. COMPARISON: None. FINDINGS: Normal visualized lung bases. There is an unremarkable bowel gas pattern. The visualized liver, spleen and kidneys are grossly normal in size and morphology. Normal soft tissue structures. Normal visualized osseous structures. RAD/Abdomen Single View IMPRESSION: Normal x-ray examination of the abdomen and pelvis. Electronically Signed: Tonny Khalil MD at 16:20 EDT ,
[2021-12-05 17:59] LABS: Absolute Lymphocyte Count 1.77 X10^3/uL (0.83-4.51); Absolute Neutrophil Count 11.6 X10^3/uL (2.0-7.7); Basophil# 0.02 X10^3/uL; Basophil% 0.1 % (0-1); Eosinophil# 0.13 X10^3/uL; Eosinophils% 0.9 % (0-5); Hematocrit 39.9 % (37-47); Lymphocyte # 1.77 X10^3/ul (0.83-4.51); Lymphocyte % 12.4 % (19-41); Mean Corp Hgb Conc 30.1 g/dL (32-36); Mean Corpuscular Hgb 23.6 pg (27.0-32.0); Mean Corpuscular Volume 78.4 fL (81-99); Mean Platelet Vol. 10.2 fl (6.2-12.0); Monocyte# 0.67 X10^3/uL; Monocyte% 4.7 % (0-10); NRBC Flagged by Analyzer 0 % (0-5); Neutrophil # 11.56 X10^3/uL (2.7-7.7); Neutrophil % 81.4 % (47-70); Platelet Count 244 K/mm3 (150-450); RBC Distribution Width CV 15.9 % (11.6-14.6); RBC Distribution Width SD 45.1 fl (35.1-43.9); Red Blood Count 5.09 M/mm3 (4.2-5.4); White Blood Count 14.2 K/mm3 (4.4-11.0)
[2021-12-05 18:37] LABS: ALB/GLOB Ratio 0.8 RATIO (0.9-2.4); AST(SGOT) 17 U/L (15-37); Alanine Aminotransfer ALT/SGPT 18 U/L (13-56); Albumin, Serum 3.2 g/dL (3.2-5.0); Alkaline Phosphatase 96 U/L (45-117); Anion Gap 7 (5-15); BUN 24 mg/dL (7-18); Calcium,Total 9.1 mg/dL (8.5-10.1); Chloride 102 mmol/L (98-107); EST Glomerular Filtration Rate 47 mL/min (>60); Est Glom Filt Rate - Afr Amer 56 mL/min (>60); Globulin 4.2 g/dL (2.2-4.2); Glucose 249 mg/dL (74-106); Lipase 27 U/L (73-393); Potassium 4.7 mmol/L (3.5-5.1); Protein, Total 7.4 g/dL (6.4-8.2); Sodium Level 134 mmol/L (136-145)
== END | disposition home or self-care (01) ==
LOC: MTLAB 15:55
PROVIDERS: PCP Family Medicine; Referring Provider Family Medicine; Visit Provider Family Medicine
DX: R10.84 Generalized abdominal pain (principal)
CPT/HCPCS: 36415; 74018; 80053; 83690; 85025; 86140

== ENCOUNTER 2021-12-07 21:40 | Emergency (ER) | payer MEDICARE, OTHER, SELFPAY ==
[2021-12-07 21:40] VITALS: BP 179/89; PULSE 87; RESP 16; TEMP 36.6; O2SAT 98; BMI 29.2
[2021-12-07 22:04] LABS: Mucous, Urine 0 SEEN /hpf (<or=2+)
[2021-12-07 22:17] LABS: Color, Urine Straw (Yellow); Glucose, Dipstick 1000 mg/dl (Normal); Ketone-Dipstick 50 mg/dl (Negative); Leukocyte Esterase-Dipstick 25 /ul (Negative); Nitrite-Dipstick Negative (Negative); Occult Blood-Urine 50 /ul (Negative); Protein-Dipstick 100 mg/dl (Negative); Urine Bilirubin Dipstick Negative (Negative); Urine Clarity Clear (Clear); Urine Urobilinogen Normal (Normal); Urine pH 6.5 (5.0 - 8.0)
--- NOTE | 2021-12-07 22:32 | ED.RN ---
PATIENT APPREHENSIVE ABOUT IV PLACEMENT AND CHARGE NURSE IS AWARE BUT ONLY PROTOCOL ORDERS ARE IN SO WE ARE WAITING FOR THE DOCTOR TO EVAL BEFORE INITIATING BLOOD DRAW AND IV THERAPY. PT STATES SHE IS A HARD STICK AND NEEDS PICC LINE AND HAS HAD FEMORA STICK BEFORE BECAUSE HER VEINS COLLAPSE AND SHE IS NOT HAVING US DO ONE IF IT DOES NOT WORK AND WE HAVE THREE ATTEMPTS.
[2021-12-07 22:37] LABS: Bacteria RARE /hpf (None Seen); Red Blood Cells-Urine 5-10 SEEN /hpf (0-5); Squamous Epithelial Cells - UA 0-5 SEEN /hpf (5-10); White Blood Cells 5-10 SEEN /hpf (0-5)
--- NOTE | 2021-12-07 22:44 | EDS_ITS ---
HPI HPI - GI History of Present Illness Chief Complaint: Abd Pain Informant: patient Abdominal Pain/Flank Pain Onset: Days (5) Context: Gradual Onset Timing: Continuous Quality: Cramping Location: RLQ and LLQ Worsened by: Food Relieved by: Nothing Nausea/Vomiting/Emesis GI Symptom: Positive for Nausea; Negative for Vomiting Diarrhea/Melena/Hematochezia GI Symptom: Negative for Diarrhea, Melena or Hematochezia Associated Symptoms Associated Symptoms: Positive for Frequency; Negative for Dysuria, Hematuria or Urgency Narrative Narrative: Patient presents with abdominal pain that has been getting worse over the last 5 days. Patient states it is gradually getting worse. Patient describes it as cramping. Patient states it is mainly over the lower abdomen. Patient states it is worse whenever she tries to eat or drink anything. Patient admits to nausea but denies any vomiting. Patient thinks she may be constipated. Patient was taking some Dulcolax laxatives [id number]-sts-[id number]. Patient states this has not helped. Patient tried an enema earlier today which had no relief of her pain. Patient denies any dysuria or hematuria but admits to some urinary frequency. Patient denies any hematemesis or coffee-ground emesis. Patient denies any melena or hematochezia. [facility] Medical History Acute hyperkalemia Amput foot, unilat-complicated Anemia Anxiety Atherosclerotic heart disease of [place] coronary artery without angina pectoris Carotid artery disease Carpal tunnel syndrome Charcot's joint of left foot Chest pain Congestive heart failure (CHF) Coronary artery disease CPAP (continuous positive airway pressure) dependence Diabetes Diabetes mellitus type 2 in obese DVT (deep venous thrombosis) Equinus contracture of left ankle Essential hypertension GERD (gastroesophageal reflux disease) GI bleed Gout History of blood clots History of blood transfusion History of CVA (cerebrovascular accident) Humerus fracture Hyperlipidemia Hypertension Hypothyroidism Hypothyroidism IBS (irritable bowel syndrome) Iron deficiency anemia Kidney stones Migraines Myocardial infarct Neuropathy 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 evidence of necrosis Non-smoker Obesity Osteoporosis PAD (peripheral artery disease) Peripheral arterial occlusive disease Peripheral vascular disease Rheumatoid arthritis Sleep apnea Type 2 diabetes mellitus with diabetic polyneuropathy Type 2 diabetes mellitus with diabetic polyneuropathy Type 2 diabetes mellitus with foot ulcer Ulcer of abdomen wall with fat layer exposed Ulcer of left foot with fat layer exposed Vitamin D deficiency Home Medications pravastatin 40 mg tablet 40 mg PO QHS CHOLESTEROL 03/10/17 [History Last Taken 12/07/20] allopurinol 100 mg tablet 100 mg PO DAILY GOUT 03/17/20 [History Last Taken 12/08/20] calcium citrate 200 mg (950 mg) tablet 200 mg PO BID supplement ##0 03/17/20 [Rx Last Taken 12/08/20] aspirin 81 mg tablet,delayed release (Adult Low Dose Aspirin) 81 mg PO DAILY Check with primary doctor 04/05/20 [History Last Taken 12/07/20] cbd 1 dose PO 4X/DAY PRN PRN pain/1500 04/05/20 [History Last Taken 12/08/20] dajqqi-dygqxtro-nkxfabt 24,000-76,000-120,000 unit capsule,delayed rel (Creon) 1 cap PO BID IBS 04/05/20 [History Last Taken 12/08/20] carvedilol 25 mg tablet 25 mg PO BID BP 08/17/20 [History Last Taken 12/08/20] levothyroxine 75 mcg tablet 75 mcg PO QHS THYROID 08/17/20 [History Last Taken 12/07/20] linaclotide 72 mcg capsule 72 mcg PO DAILY STOOL 08/17/20 [History Last Taken 11/21/20] metoclopramide HCl 10 mg tablet 10 mg PO Q8H PRN PRN Nausea 08/17/20 [History Last Taken 12/07/20] multivitamin-ferrous fumarate-folic acid 18 mg-400 mcg tablet 0.5 tablet PO BID SUPPLEMENT 08/17/20 [History Last Taken 12/08/20] trazodone 100 mg tablet 100 mg PO QHS PRN PRN Sleep 08/17/20 [History Last Taken 12/07/20] venlafaxine 100 mg tablet 100 mg PO BID Mood 08/17/20 [History Last Taken 12/08/20] insulin lispro 100 unit/mL subcutaneous pen 6 - 8 unit subcut BID Blood sugar 08/22/20 [History Last Taken 12/08/20] acetaminophen 500 mg tablet 1,000 mg PO Q8H PRN PRN Pain Score 1-3 #0 tabs 09/09/20 [Rx Last Taken 12/08/20] tizanidine 4 mg tablet 4 mg PO Q8H PRN PRN Muscle Spasm #20 tabs 09/09/20 [Rx Last Taken 12/07/20] arginine 7 gram-glutam 7 gram-CaHMB 1.5 hobt-aznqk-di-min oral pwd pkt 1 packet PO BIDCM supplement 09/19/20 [History Last Taken 12/08/20] morphine 10 mg/5 mL oral solution 3 ml PO Q6H PRN PRN Pain 09/19/20 [History Last Taken 12/07/20] nitroglycerin 400 mcg/spray translingual 0.4 mg sublingual TID PRN PRN chest pain 09/19/20 [History Last Taken 1 Week Ago ~12/01/20] polyethylene glycol 3350 17 gram oral powder packet 17 gm PO DAILY constipation 09/19/20 [History Last Taken 12/08/20] sennosides 8.6 mg-docusate sodium 50 mg tablet 1 tablet PO QHS constipation 09/19/20 [History Last Taken 12/07/20] amlodipine 5 mg tablet 5 mg PO BID HYPERTENSION #180 tabs 11/09/20 [Rx Last Taken 12/08/20] esomeprazole magnesium 20 mg capsule,delayed release 20 mg PO BID GERD 12/08/20 [History Last Taken 12/08/20] fexofenadine 180 mg tablet 180 mg PO DAILY ALLERGIES 12/08/20 [History Last Taken 12/08/20] guaifenesin 600 mg tablet, extended release 12 hr (Mucus Relief ER) 600 mg PO DAILY CONGESTION 12/08/20 [History Last Taken 12/08/20] insulin glargine 100 unit/mL (3 mL) subcutaneous pen (Lantus Solostar U-100 Insulin) 25 unit subcut BID blood sugar 12/14/20 [History Last Taken Unknown] benzonatate 100 mg capsule (Tessalon Perlalan) 100 mg PO TID PRN cough #90 caps 01/11/21 [Rx Last Taken Unknown] clopidogrel 75 mg tablet 75 mg PO DAILY CAD #90 tabs 10/24/21 [Rx Last Taken Unknown] isosorbide mononitrate 60 mg tablet,extended release 24 hr 60 mg PO .COMPLEX 11/21/21 [History Last Taken Unknown] Allergy/AdvReac Type Severity Reaction Status Date / Time doxycycline Allergy Severe all over Verified 12/07/21 21:43 body hives and itching atorvastatin calcium Allergy Unknown Verified 12/07/21 21:43 [From Lipitor] bupropion HCl Allergy Unknown Verified 12/07/21 21:43 [From Wellbutrin] mannitol [From Reclast] Allergy joint Verified 12/07/21 21:43 pain, unable to breathe, unable to walk propoxyphene napsylate Allergy Unknown Verified 12/07/21 21:43 [From Darvocet-N 100] Quinolones Allergy Unknown Verified 12/07/21 21:43 Tetanus Vaccines and Toxoid Allergy Chest Verified 12/07/21 21:43 [Tetanus Vaccines & Toxoid] tightness tizanidine Allergy Unknown Verified 12/07/21 21:43 zoledronic acid Allergy joint Verified 12/07/21 21:43 [From Reclast] pain,unable to breathe, unaable to walk pravastatin AdvReac Severe Myalgias Verified 12/07/21 21:43 gemfibrozil AdvReac Intermediate Unknown Verified 12/07/21 21:43 NSAIDS (Non-Steroidal AdvReac Other Verified 12/07/21 21:43 Anti-Inflamma Family History Mother , age 75 Cancer CVA (cerebral vascular accident) CAD (coronary artery disease) Father CAD (coronary artery disease) History of coronary artery bypass graft Sister CAD (coronary artery disease) Multiple sclerosis Other Anxiety Bleeding disorder Depression Diabetes Heart disease High cholesterol Hypertension Surgical History History of appendectomy History of cholecystectomy History of [place] amputation of left foot History of coronary artery bypass graft History of coronary artery stent placement History of excision of lesion History of gastric bypass History of gastric bypass History of left heart catheterization History of ventral hernia repair Hx of CABG Hx of ventral hernia repair Stented coronary artery (12/03/18) Social History Smoking Status: Never smoker alcohol intake: never substance use type: does not use caffeine: Yes Type: coffee what type of physical activity do you participate in: none seatbelt use: sometimes do you feel safe at home: Yes additional social history: DOES NOT TAKE ASPIRIN DOES TAKE IBUPROFEN NEEDED ROS ROS ED Constitutional Constitutional ED: Reports chills and subjective; Denies fever(s) Eyes Eyes: Denies blurry vision or change in vision ENT ENT ED: Denies rhinorrhea or sore throat Cardiovascular Cardiovascular: Denies chest pain or palpitations Respiratory/Chest Respiratory/Chest: Denies cough or dyspnea Gastrointestinal Gastrointestinal: Reports abdominal pain and nausea; Denies diarrhea, melena or vomiting Genitourinary Genitourinary ED: Denies dysuria or hematuria Musculoskeletal Musculoskeletal: Reports back pain and neck pain Integumentary Denies abscess or rash Neurologic Neurologic: Denies headache(s) or weakness Allergic/Immunologic Allergic/Immunologic ED: Denies mouth swelling or urticaria EXAM Physical Exam Const Vital Signs: 12/07/21 21:40 12/08/21 01:40 12/08/21 03:22 Temperature 98 F Temperature Source Temporal Pulse Rate 87 74 Respiratory Rate 16 17 Blood Pressure 179/89 H 134/75 H Blood Pressure Mean 119 94 Pulse Ox 98 98 97 Oxygen Delivery Method Room Air Room Air Room Air Positive well nourished and well developed General Appearance ED: well developed HEENT Reports moist mucous membranes Neck supple and no JVD Resp normal respiratory effort and clear to auscultation bilaterally Cardio regular rate, regular rhythm and no murmurs GI non-distended Palpation: soft and tender LLQ, RLQ, LUQ, periumbilical and suprapubic; Negative for guarding or rebound tenderness present Extremity normal to inspection General Extremety ED: Negative for edema or tenderness General Extremity: Negative for edema Neuro oriented x3, CN's II-XII intact bilaterally and no sensory deficits noted Sensorium / Orientation: alert Motor Exam: strength 5/5 throughout Psych mental status grossly normal Skin no rashes or lesions noted MDM MDM MDM Narrative Medical decision making narrative: Patient was given IV fluids, morphine, and Zofran. CBC shows a slight anemia with a hemoglobin of 11.6 and hematocrit 37.6. Comprehensive metabolic profile showed a slightly elevated creatinine of 1.24 and BUN of 23. These are consistent with prior results. Glucose was elevated at 324. Anion gap was normal. Lipase was normal. Urinalysis shows leukocyte esterases of 25 with 5- 10 white blood cells. Occult blood was 50 with 5-10 red blood cells. Lactate was normal. CT scan of the abdomen pelvis was obtained. There is a previous gastric bypass. There are loops of bowel proximal to the anastomosis that contain contrast. The remainder of the bowels do not show any contrast. There is a questionable internal hernia. This was interpreted by the radiologist and reviewed by myself. Repeat KUB x-rays were recommended. These were ordered 2 hours and 4 hours after the CAT scan. First KUB was obtained. There are 2 views. On my interpretation, there is no evidence of any obstruction. There is contrast noted in the urinary bladder. Network Systems Engineer also interpreted the x-rays and agrees. The second KUB was obtained. There were 2 views. On my interpretation, there is contrast noted in the ascending colon and distal small bowel. There is no evidence of any obstruction. Radiologist also interpreted the x-rays and agrees. Patient was advised of her findings. Patient was instructed to continue her medications at home. Patient was instructed to return if worse in any way. Patient was instructed to follow-up with her primary care physician in 3 to 5 days for reevaluation. Patient and family understood and were agreeable with the plan. All questions were answered. Lab Data Attestation: I reviewed the patient's lab results. Labs: Laboratory Results - last 24 hr 12/07/21 12/07/21 12/07/21 22:00 23:00 23:00 WBC 8.8 RBC 4.87 Hgb 11.6 L Hct 37.6 MCV 77.2 L MCH 23.8 L MCHC 30.9 L RDW Std Deviation 42.5 RDW Coeff of Marco 15.7 H Plt Count 224 MPV 10.3 Immature Gran % (Auto) 0.500 Neut % (Auto) 77.5 H Lymph % (Auto) 16.2 L [place] % (Auto) 4.7 Eos % (Auto) 0.8 Baso % (Auto) 0.3 Absolute Neuts (auto) 6.8 Absolute Lymphs (auto) 1.42 Nucleated RBC % 0 Sodium 133 L Potassium 4.5 Chloride 100 Carbon Dioxide 26.0 Anion Gap 7 BUN 23 H Creatinine 1.24 H Estim Creat Clear Calc 34.37 Est GFR (MDRD) Af Amer 54 L Est GFR (MDRD) Non-Af 45 L BUN/Creatinine Ratio 18.5 Glucose 324 H Lactic Acid Calcium 9.4 Total Bilirubin 0.40 Direct Bilirubin 0.18 AST 22 ALT 18 Alkaline Phosphatase 92 Total Protein 7.9 Albumin 3.2 Globulin 4.7 H Lipase 46 L Urine Color Straw Urine Clarity Clear Urine pH 6.5 Ur Specific [place] 1.010 Urine Protein 100 H Urine Glucose (UA) 1000 H Urine Ketones 50 H Urine Occult Blood 50 H Urine Nitrite Negative Urine Bilirubin Negative Urine Urobilinogen Normal Ur Leukocyte Esterase 25 H Urine RBC 5-10 SEEN Urine WBC 5-10 SEEN Ur Squamous Epith Cells 0-5 SEEN Urine Bacteria RARE Urine Mucus 0 SEEN 12/08/21 04:14 WBC RBC Hgb Hct MCV MCH MCHC RDW Std Deviation RDW Coeff of Marco Plt Count MPV Immature Gran % (Auto) Neut % (Auto) Lymph % (Auto) [place] % (Auto) Eos % (Auto) Baso % (Auto) Absolute Neuts (auto) Absolute Lymphs (auto) Nucleated RBC % Sodium Potassium Chloride Carbon Dioxide Anion Gap BUN Creatinine Estim Creat Clear Calc Est GFR (MDRD) Af Amer Est GFR (MDRD) Non-Af BUN/Creatinine Ratio Glucose Lactic Acid 0.7 Calcium Total Bilirubin Direct Bilirubin AST ALT Alkaline Phosphatase Total Protein Albumin Globulin Lipase Urine Color Urine Clarity Urine pH Ur Specific [place] Urine Protein Urine Glucose (UA) Urine Ketones Urine Occult Blood Urine Nitrite Urine Bilirubin Urine Urobilinogen Ur Leukocyte Esterase Urine RBC Urine WBC Ur Squamous Epith Cells Urine Bacteria Urine Mucus Radiography Diagnostic Testing: Clinical Impression(s) from Imaging Studies KUB X-Ray 12/08/21 02:34 IMPRESSION: The amount and concentration of oral contrast makes it difficult to visualized on a plain radiograph. Faint contrast within loops of small bowel within the upper abdomen, grossly similar to the CT. No oral contrast visualized within the colon. Electronically Signed: Alejandro Marrero MD at 3:42 EDT , KUB X-Ray 12/08/21 04:32 IMPRESSION: Non-obstructive bowel gas pattern. Electronically Signed: Red Farris MD at 6:15 EDT , Abdomen/Pelvis CT 12/08/21 22:49 IMPRESSION: 1. Somewhat conspicuous configuration of proximal small bowel within upper abdomen in a patient status post remote gastric bypass. There is no evidence of high-grade bowel obstruction but findings could represent internal small bowel hernia. Enteric contrast still within proximal small bowel. Recommend serial KUBs to follow transition of contrast into distal bowel. 2. Trace pelvic ascites. 3. Other nonurgent findings within body of report. Electronically Signed: Red Farris MD at 1:21 EDT , Discharge Plan Triage Chief Complaint: Abd Pain ED Provider: Con Last Dx/Rx/DC Orders Clinical Impression: Abdominal pain, Hypertension Instructions: ED Abdominal Pain Unkn Cause Fem Prescriptions: No Action Creon 24,000-76,000 -120,000 unit capsule,delayed release(DR/EC) 1 cap PO BID Rx Instructions: administer with meals and/or snacks cbd 1 dose PO 4X/DAY PRN PRN (Reason: pain/1500) aspirin [Adult Low Dose Aspirin] 81 mg tablet,delayed release (DR/EC) 81 mg PO DAILY pravastatin 40 MG tablet 40 mg PO QHS Label Comments: CHOLESTEROL allopurinol 100 MG tablet 100 mg PO DAILY calcium citrate 200 MG tablet 200 mg PO BID Qty: 0 0RF Rx Instructions: Hold it wile taking antibiotic levothyroxine 75 MCG tablet 75 mcg PO QHS Label Comments: 1 (ONE) TABLET BEDTIME venlafaxine 100 MG tablet 100 mg PO BID Rx Instructions: Takes first dose in am and then second dose around 1700. Does not want it later in the evening. trazodone 100 MG tablet 100 mg PO QHS PRN PRN (Reason: Sleep) metoclopramide HCl 10 MG tablet 10 mg PO Q8H PRN PRN (Reason: Nausea) Label Comments: TAKE 1 (ONE) TABLET EVERY 8 HOURS NEEDED FOR NAUSE AND/OR CONSTIPATION fvuzskoqnybi-bend-kmxdt acid 1 EACH tablet 0.5 tablet PO BID Label Comments: TAKE 1 TABLET BY MOUTH EVERY DAY linaclotide 72 MCG capsule 72 mcg PO DAILY carvedilol 25 MG tablet 25 mg PO BID Rx Instructions: TAKE 1 TABLET BY MOUTH TWICE A DAY insulin lispro 100 UNIT/ML insulin pen 6 - 8 unit subcut BID acetaminophen 500 MG tablet 1,000 mg PO Q8H PRN PRN (Reason: Pain Score 1-3) Qty: 0 0RF tizanidine 4 MG tablet 4 mg PO Q8H PRN PRN (Reason: Muscle Spasm) Qty: 20 0RF nitroglycerin 0.4 MG bottle 0.4 mg SL TID PRN PRN (Reason: chest pain) morphine 10 MG/5 ML solution 3 ml PO Q6H PRN PRN (Reason: Pain) polyethylene glycol 3350 17 GM packet 17 gm PO DAILY Label Comments: pt states takes only benefiber -or- miralex everyday as needed for constipation. sennosides-docusate sodium 1 TABLET tablet 1 tablet PO QHS [id number]-WzKGO-lbkqzq-dn-apd 1 PACKET packet 1 packet PO BIDCM esomeprazole magnesium 20 mg capsule,delayed release(DR/EC) 20 mg PO BID Label Comments: TAKE 1 CAPSULE BY MOUTH EVERY DAY fexofenadine 180 mg Tablet 180 mg PO DAILY guaifenesin [Mucus Relief ER] 600 mg tablet extended release 12hr 600 mg PO DAILY Lantus Solostar U-100 Insulin 100 unit/mL (3 mL) insulin pen 25 unit subcut BID benzonatate [Tessalon [place]] 100 mg capsule 100 mg PO TID PRN (Reason: cough) Qty: 90 0RF amlodipine 5 mg tablet 5 mg PO BID Qty: 180 3RF clopidogrel 75 mg tablet 75 mg PO DAILY Qty: 90 3RF Label Comments: ask about stopping isosorbide mononitrate 60 mg tablet extended release 24 hr 60 mg PO .COMPLEX Rx Instructions: 60 mg orally 1 tablet in am and 2 tablets (120 mg) at hs; Primary Care Provider: Con Johnson Referrals: Con Johnson MD [Primary Care Provider] - 3-5 Days Disposition Disposition: Home, Self Care
[2021-12-07] MEDS: Morphine 4 MG/ML Syringe IV (23:10)
[2021-12-07] MEDS: Ondansetron 4 MG/2 ML Vial IV (23:10)
[2021-12-07] MEDS: 0.9% Normal Saline 1,000 ML 1000 ML IV (23:11)
[2021-12-07 23:21] LABS: Absolute Lymphocyte Count 1.42 X10^3/uL (0.83-4.51); Absolute Neutrophil Count 6.8 X10^3/uL (2.0-7.7); Basophil# 0.03 X10^3/uL; Basophil% 0.3 % (0-1); Eosinophil# 0.07 X10^3/uL; Eosinophils% 0.8 % (0-5); Hematocrit 37.6 % (37-47); Hemoglobin 11.6 g/dL (12.0-15.0); Lymphocyte # 1.42 X10^3/ul (0.83-4.51); Lymphocyte % 16.2 % (19-41); Mean Corp Hgb Conc 30.9 g/dL (32-36); Mean Corpuscular Hgb 23.8 pg (27.0-32.0); Mean Corpuscular Volume 77.2 fL (81-99); Mean Platelet Vol. 10.3 fl (6.2-12.0); Monocyte# 0.41 X10^3/uL; Monocyte% 4.7 % (0-10); NRBC Flagged by Analyzer 0 % (0-5); Neutrophil # 6.82 X10^3/uL (2.7-7.7); Neutrophil % 77.5 % (47-70); Platelet Count 224 K/mm3 (150-450); RBC Distribution Width CV 15.7 % (11.6-14.6); RBC Distribution Width SD 42.5 fl (35.1-43.9); Red Blood Count 4.87 M/mm3 (4.2-5.4); White Blood Count 8.8 K/mm3 (4.4-11.0)
[2021-12-07 23:32] LABS: AST(SGOT) 22 U/L (15-37); Alanine Aminotransfer ALT/SGPT 18 U/L (13-56); Albumin, Serum 3.2 g/dL (3.2-5.0); Alkaline Phosphatase 92 U/L (45-117); Anion Gap 7 (5-15); BUN 23 mg/dL (7-18); BUN/Creat Ratio 18.5 RATIO (10-20); Bilirubin, Direct 0.18 mg/dL (0.00-0.30); Calcium,Total 9.4 mg/dL (8.5-10.1); Chloride 100 mmol/L (98-107); Creatinine, Serum 1.24 mg/dL (0.55-1.02); EST Glomerular Filtration Rate 45 mL/min (>60); Est Glom Filt Rate - Afr Amer 54 mL/min (>60); Estimated Creatinine Clearance 34.37 ml/min; Globulin 4.7 g/dL (2.2-4.2); Glucose 324 mg/dL (74-106); Lipase 46 U/L (73-393); Potassium 4.5 mmol/L (3.5-5.1); Protein, Total 7.9 g/dL (6.4-8.2); Sodium Level 133 mmol/L (136-145)
[2021-12-08 01:40] VITALS: BP 134/75; PULSE 74; RESP 17; O2SAT 98
--- NOTE | 2021-12-08 02:34 | RAD_ITS ---
EXAM: XR Abdomen 1 View HISTORY: Internal hernia suspected on the CT from the same day. Follow-up serial KUB to evaluate progression of oral contrast. TECHNIQUE: XR Abdomen 1 View COMPARISON: CT from 12:37 AM on the same day. LIMITATIONS: None. FINDINGS: Frontal view of the abdomen and pelvis was obtained. The amount and concentration of oral contrast makes it difficult to identify on plain radiograph. Faint oral contrast is identified within loops of small bowel within the upper abdomen, similar to the CT. No oral contrast is identified within the large bowel. No gross diffuse small bowel dilatation. No gross free air identified. RAD/Abdomen Single View (Portable) IMPRESSION: The amount and concentration of oral contrast makes it difficult to visualized on a plain radiograph. Faint contrast within loops of small bowel within the upper abdomen, grossly similar to the CT. No oral contrast visualized within the colon. Electronically Signed: Alejandro Marrero MD at 3:42 EDT ,
[2021-12-08] MEDS: Morphine 4 MG/ML Syringe IV (02:55)
[2021-12-08 03:22] VITALS: O2SAT 97
--- NOTE | 2021-12-08 04:32 | RAD_ITS ---
INDICATION: Abdominal pain EXAMINATION/TECHNIQUE: X-RAY - portable supine AP view XR Abdomen 1 View COMPARISON: Abdominal radiographs from [address] abdomen and pelvis from 5 hours prior. FINDINGS: Enteric contrast now present within small bowel loops at lower abdomen. No significant bowel dilatation demonstrated. Gas scattered throughout large bowel. Renal excretion of contrast with opacified urinary bladder. Sternotomy wires noted. Degenerative changes along spine. Unremarkable lung bases. RAD/Abdomen Single View (Portable) IMPRESSION: Non-obstructive bowel gas pattern. Electronically Signed: Red Farris MD at 6:15 EDT ,
[2021-12-08 04:46] LABS: Lactic Acid 0.7 mmol/L (0.4-1.9)
[2021-12-08 06:42] VITALS: BP 130/74; PULSE 72; RESP 15; O2SAT 98
--- NOTE | 2021-12-08 22:49 | CT_ITS ---
INDICATION: Abdominal pain EXAMINATION: CT Abdomen And Pelvis W/ Contrast Injection TECHNIQUE: Helically acquired images were obtained of the abdomen and pelvis following oral and IV contrast. 2-D reconstructions reviewed. A radiation dose optimization technique was used for this scan. IV Contrast dosage and agent: 100 mL Isovue 300 Oral contrast: Yes COMPARISON: Contrast enhanced CT abdomen and pelvis from 02/11/2020 FINDINGS: LOWER CHEST: Mild scarring within the lung bases. Stable moderate-sized hiatal hernia. Normal size heart. Previous CABG. LIVER: Homogeneous. No concerning lesion. GALLBLADDER AND BILIARY TREE: Status post cholecystectomy. Mild residual biliary ductal ectasia. PANCREAS: Somewhat atrophic. No discrete mass or peripancreatic edema. SPLEEN: Normal size without focal cystic or solid mass. ADRENAL GLANDS: Unremarkable. KIDNEYS AND URETERS: Stable mild left renal cortical scarring. No hydronephrosis. No concerning lesion. PERITONEUM: Trace free fluid within pelvis. No free air. No other fluid collection. RETROPERITONEUM: No retroperitoneal mass or pathologic fluid collection. BOWEL: Previous gastric bypass. Proximal anastomotic loops contain enteric contrast. Remainder of bowel is unopacified. There is tapering and slight tortuosity of proximal anastomotic loops of bowel extending across midline within upper abdomen, conspicuous configuration possibly representing internal hernia. No significant bowel dilatation. Slight bulging of loop of small bowel at midline upper abdominal ventral hernia defect. No evidence of bowel strangulation or incarceration. Unremarkable large bowel. Appendix not visualized but no evidence of appendicitis. LYMPH NODES: No enlarged mesenteric or retroperitoneal lymph nodes. VESSELS: Moderate atherosclerosis. URINARY BLADDER: Incompletely distended. REPRODUCTIVE ORGANS: No pelvic masses. ABDOMINAL WALL: Ventral abdominal wall scarring and hernia repair mesh in place. Stable appearance of small midline ventral abdominal hernias. BONES: Mild skeletal degenerative changes. CT/Abdomen/Pelvis WITH Contrast IMPRESSION: 1. Somewhat conspicuous configuration of proximal small bowel within upper abdomen in a patient status post remote gastric bypass. There is no evidence of high-grade bowel obstruction but findings could represent internal small bowel hernia. Enteric contrast still within proximal small bowel. Recommend serial KUBs to follow transition of contrast into distal bowel. 2. Trace pelvic ascites. 3. Other nonurgent findings within body of report. Electronically Signed: Red Farris MD at 1:21 EDT ,
== END 2021-12-08 06:43 | disposition home or self-care (01) ==
PROVIDERS: Emergency Provider Emergency Medicine; PCP Family Medicine; Visit Provider Emergency Medicine
DX: R10.9 Unspecified abdominal pain (principal); I11.0 Hypertensive heart disease with heart failure; I50.9 Heart failure, unspecified; E11.65 Type 2 diabetes mellitus with hyperglycemia; E11.42 Type 2 diabetes mellitus with diabetic polyneuropathy; Z79.4 Long term (current) use of insulin; D64.9 Anemia, unspecified; R35.0 Frequency of micturition; E78.5 Hyperlipidemia, unspecified; I25.10 Atherosclerotic heart disease of native coronary artery without angina pectoris; R11.0 Nausea; E03.9 Hypothyroidism, unspecified; E66.9 Obesity, unspecified; Z79.899 Other long term (current) drug therapy; Z79.82 Long term (current) use of aspirin
CPT/HCPCS: 74018; 74177; 80048; 80076; 81001; 83605; 83690; 85025; 96361; 96374; 96375; 96376; 99283; J7030; Q9967; A4216; J2405

== ENCOUNTER 2021-12-20 09:45 | Outpatient (RCR) | payer MEDICARE, OTHER, SELFPAY ==
[2021-11-24 00:35] VITALS: BP 113/62; PULSE 71; RESP 18; TEMP 36.9
[2021-11-29 10:00] VITALS: BP 131/54; PULSE 76; RESP 16; TEMP 35.8
--- NOTE | 2021-11-29 10:22 | PN.PCM_ITS ---
History of Present Illness Date of Service: 11/29/21 Chief Complaint: Left foot History of Wound: This is 76-year-old female with diabetic neuropathy history of Charcot left foot with rocker-bottom deformity, coronary artery disease and other comorbidities has a recurrent ulcer. She has had delayed healing of her plantar foot ulcer secondary to rocker-bottom Charcot foot deformity, recurrent ulcers and infections. She completed left lower extremity vascular surgery intervention procedure and had this successfully completed at [facility] with Dr. Pang. He denies fever, chill, nausea, vomiting, calf pain, or diarrhea. She uses a wheelchair most of the time and reports continued compli ance. She has changed the dressing daily as advised. She denies odor. she denies pain. She has been more diligent with offloading this past week as advised. Progress of Wound: Improving Objective Data Objective Data Vital Signs: Vital Signs Temp Pulse Resp BP O2 Del Method 96.5 F L 76 16 131/54 H Room Air 11/29/21 10:00 11/29/21 10:00 11/29/21 10:00 11/29/21 10:00 11/29/21 10:00 Oxygen Delivery Method Room Air Physical Exam Narrative Left foot: Chopart amputation plantar central foot ulcer has no direct probe to bone, necrosis, odor, erythema, or purulence noted. Reduced depth and size noted. There is no cellulitis, no fluctuance or bogginess to the left foot. Negative Claudio and Elizondo sign left. Compartments remain soft to palpate left lower extremity. DP 2/4, left. deep probing noted. ulcer bed with granular base. no midfoot, subtalar or ankle laxity , calor, edema with manipulation. There are no local signs infection. Resolved blister. Debridement Note Debridement Note Wound debrided: left foot Wound Grade/Stage: 2 Type of Debridement: Excisional debridement Anesthesia Used: 4% Lidocaine Solution Depth: in the subcutaneous layer Percentage of wound debrided: 100 Instrument Used: #15 blade Tissue Removed: fibrous, devitalized subcutaneous, biofilm, slough Severity: Fat Layer Exposed Amount of bleeding with debridement: Mild Bleeding Controlled with: Pressure Patient tolerated procedure: Patient tolerated procedure well Post-Debridement Measurements and Additional Note: Post-Debridement Measurements/Treatment AMINAH - Nurse 1 - General Ulcer Assessment Start: 11/29/21 10:00 Freq: Status: Active Protocol: UBALDOEXT Activity Type Activity Date Activity User E-sign Co-sign Detail Recorded Client Recorded Date Recorded By Document 11/29/21 10:00 [facility] [id number] 11/29/21 10:08 [facility] 11/29/21 10:00 - Today's Visit Information Type of service Follow-up Visit (Physician/SIMPLEX PRINTER INSTALLER ) Arrival Mode Wheelchair Transfer Assistance Other Transfer Assist (Other) 1 Patient Identification Verified (Name & Yes ) Patient Requires Transmission-Based No Precautions Vital Signs Temperature (97.8 F-99.1 F) 96.5 F L Temperature Source Temporal Pulse Rate (60-100) 76 Pulse Location Monitor Respiratory Rate (12-18) 16 Respiratory rate source Observation Oxygen Delivery Method Room Air Blood Pressure (90/60-120/80) 131/54 H Blood Pressure Mean (mm Hg) 79 Source Monitor Position Sitting Blood Pressure Location Left Arm History Since Last Visit- (Skip if this is Patient's initial visit) Have you changed medications since your No last visit? Any new allergies or adverse reactions No Had a fall/change in ADL's that may No increase risk of falls Signs or symptoms of abuse and/or No neglect since last visit Have you been in the hospital since your No last visit? Has dressing in place as prescribed Yes Has compression in place as prescribed Yes Has offloadiing in place as prescribed Yes Experienced any changes in pain level or No management Other Footwear shree to left foot, sock to r foot Pain Scale: 0-10 Numeric Is Patient Pain Free? Yes - Nurse 1 - General Ulcer Measurement Start: 11/29/21 10:00 Freq: Status: Active Protocol: Activity Type Activity Date Activity User E-sign Co-sign Detail Recorded Client Recorded Date Recorded By Document 11/29/21 10:00 [facility] [id number] 11/29/21 10:08 [facility] 11/29/21 10:00 Wound Center Nurse 1 10. L plantar -Current Size (cm) - Length 0.1 -Current Size (cm) - Width 0.1 -Current Size (cm) - Depth 0.1 -Total Square Cm 0.01 -Date of Last Picture (Recall this 11/29/21 field) -Photo Taken Yes -Epithelialization Large 67-100% -Tunneling No -Undermining/Tunneling No -Circular Undermining No -Exudate Amt Small -Exudate Type Serous -Slough/Fibrin Yes -Necrosis Amt Small (1-33%) -Necrotic Tissue Type Adherent Slough -Texture (Shannon-wound Skin Appearance) Assessed, Scarring -Moisture (Shannon-wound Skin Appearance) Assessed,Dry/ Scaly -Color (Shannon-wound Skin Appearance) Assessed -Temperature (Shannon-wound Skin No Abnormality Appearance) (Pt Warm) -Tenderness on Palpation (Shannon-wound No Skin Appearance) -Ulcer Cleansing Rinsed/ Irrigated with Saline -Foul Odor after Cleansing No -Anesthetic Used 5% Lidocaine Gel WC - Nurse 2 - General Ulcer CM Notes Start: 11/29/21 10:00 Freq: Status: Active Protocol: Activity Type Activity Date Activity User E-sign Co-sign Detail Recorded Client Recorded Date Recorded By Document 11/29/21 10:19 GLORIA [id number] 11/29/21 10:20 PL 11/29/21 10:19 Wound Center Nurse 2 -Time 10:13 -Correct Patient Yes -Correct Side, Site, Position Yes -Correct Procedure Yes -Procedure Performed Yes -Type of Procedure Debridement -Clinical Debridement Subcutaneous -Tissue Removed Subcutaneous -Post Debridement (cm) - Length 0.2 -Post Debridement (cm) - Width 0.2 -Post Debridement (cm) - Depth 0.2 -Total Square (Post) (cm) 0.04 -Area of Debridement (cm) - Length 0.2 -Area of Debridement (cm) - Width 0.2 -Total Square (Area) (cm) 0.04 -Tunneling No -Undermining/Tunneling No -Circular Undermining No -Wound/Ulcer Outcome Not Healed -Ulcer Cleansing Rinsed/ Irrigated with Saline -Foul Odor after Cleansing No -Bioengineered Tissue No -Bleeding Controlled with Pressure -Treatment Response Procedure Tolerated Well -Debridement - Subq, 1st 20sq cm Yes Pain Scale: 0-10 Numeric Is Patient Pain Free? Yes Assessment/Plan Assessment/Plan (1) Delayed wound healing: CODE(S): T14.8XXD - Other injury of unspecified body region, subsequent encounter (2) Charcot's joint of left foot: CODE(S): M14.672 - Charcot's joint, left ankle and foot (3) Type 2 diabetes mellitus with diabetic polyneuropathy: CODE(S): E11.42 - Type 2 diabetes mellitus with diabetic polyneuropathy QUALIFIERS: Diabetes mellitus watermelon inspector insulin use: with watermelon inspector use Qualified Code(s): E11.42 - Type 2 diabetes mellitus with diabetic polyneuropathy; Z79.4 - manager terminal (current) use of insulin (4) Chronic ulcer of left foot with fat layer exposed: CODE(S): L97.522 - Non-pressure chronic ulcer of other part of left foot with fat layer exposed (5) Chronic ulcer of left foot with necrosis of muscle: CODE(S): L97.523 - Non-pressure chronic ulcer of other part of left foot with necrosis of muscle (6) Left ankle pain: CODE(S): M25.572 - Pain in left ankle and joints of left foot (7) Blister (nonthermal), left foot, initial encounter: CODE(S): S90.822A - Blister (nonthermal), left foot, initial encounter PLAN: Plan I reviewed and discussed her case. Debridement was performed as noted. She is reassured no local signs of infection are noted. She completed a full course of advanced wound healing product application, epi fix. To wash daily with antibacterial soap and water. To change dressing daily with hydrogel. Vascular surgery intervention was performed successfully at [facility] recently with Dr. Pang w/ antioplasty at femoral through adductor into popliteal (balloon). To maintain non weightbearing status with the use of assistive devices (knee roller/walker when able secondary to shoulder fracture) left lower extremity. To use wheelchair with the assistance of the help of her . She was advised to avoid direct contact and pressure on the footplate while seated or in her wheelchair. Imaging: X-rays were reviewed from prior emergency room visit in 07/2021. uPdated xrays ordered due to pain and I will call her with the results. To continue nutritional supplementation to optimize healing. She is taking Blue and has also been trying to eat more fresh foods. She is working on more detailed diet planning with her primary care physician. F/u wound care center 1 week. She will be out of town and plans to return in two. I answered all of her questions. To call sooner or go to the emergency room if her clinical appearance worsens or if she develops systemic signs of illness. She is at risk for amputation and limb loss and systemic illness due to her comorbidities. Note: [employer] speech recognition handbag framer software was used to create portions of this document. Sound-alike and misspelled words, as well as other handbag framer errors may be contained in the documentation.
[2021-12-06 09:36] VITALS: BP 122/61; PULSE 73; RESP 20; TEMP 36.9
--- NOTE | 2021-12-06 19:36 | PN.PCM_ITS ---
History of Present Illness Date of Service: 12/06/21 Chief Complaint: Left foot History of Wound: This is 76-year-old female with diabetic neuropathy history of Charcot left foot with rocker-bottom deformity, coronary artery disease and other comorbidities has a recurrent ulcer. She has had delayed healing of her plantar foot ulcer secondary to rocker-bottom Charcot foot deformity, recurrent ulcers and infections. She completed left lower extremity vascular surgery intervention procedure and had this successfully completed at [facility] with Dr. Pang. He denies fever, chill, nausea, vomiting, calf pain, or diarrhea. She uses a wheelchair most of the time and reports continued compli ance. She has changed the dressing daily as advised. She denies odor. she denies pain. she has a new abdominal pain and has not been able to offload as advised. She is scheduled to follow up with pcp soon for abdominal pain. Progress of Wound: deeper Objective Data Objective Data Vital Signs: Vital Signs Temp Pulse Resp BP O2 Del Method 98.4 F 73 20 H 122/61 H Room Air 12/06/21 09:36 12/06/21 09:36 12/06/21 09:36 12/06/21 09:36 11/29/21 10:00 Oxygen Delivery Method Room Air Physical Exam Narrative Left foot: Chopart amputation plantar central foot ulcer has no direct probe to bone, necrosis, odor, erythema, or purulence noted. increased depth noted. There is no cellulitis, no fluctuance or bogginess to the left foot. Negative Claudio and Elizondo sign left. Compartments remain soft to palpate left lower extremity. DP 2/4, left. deep probing noted. ulcer bed with granular base. no midfoot, subtalar or ankle laxity , calor, edema with manipulation. There are no local signs infection. Resolved blister. Debridement Note Debridement Note Wound debrided: left foot Wound Grade/Stage: 2 Type of Debridement: Excisional debridement Anesthesia Used: 4% Lidocaine Solution Depth: in the subcutaneous layer Percentage of wound debrided: 100 Instrument Used: #15 blade Tissue Removed: fibrous, devitalized subcutaneous, biofilm, slough Severity: Fat Layer Exposed Amount of bleeding with debridement: Mild Bleeding Controlled with: Pressure Patient tolerated procedure: Patient tolerated procedure well Post-Debridement Measurements and Additional Note: Post-Debridement Measurements/Treatment WC - Nurse 1 - General Ulcer Assessment Start: 11/29/21 10:00 Freq: Status: Active Protocol: EUGNEE Activity Type Activity Date Activity User E-sign Co-sign Detail Recorded Client Recorded Date Recorded By Document 11/29/21 10:00 [facility] [id number] 11/29/21 10:08 [facility] Document 12/06/21 09:36 DL [id number] 12/06/21 09:42 DL 11/29/21 12/06/21 10:00 09:36 - Today's Visit Information Type of service Follow-up Visit Follow-up Visit (Physician/MANAGER PAID (Physician/MANAGER PAID ) ) Arrival Mode Wheelchair Ambulatory Transfer Assistance Other None Transfer Assist (Other) 1 Patient Identification Verified (Name & Yes Yes ) Patient Requires Transmission-Based No No Precautions Finger Stick Blood Sugar(mg/dl) (if not checked indicated): Blood Sugar Stated by Patient Vital Signs Temperature (97.8 F-99.1 F) 96.5 F L 98.4 F Temperature Source Temporal Temporal Pulse Rate (60-100) 76 73 Pulse Location Monitor Monitor Respiratory Rate (12-18) 16 20 H Respiratory rate source Observation Observation Oxygen Delivery Method Room Air Blood Pressure (90/60-120/80) 131/54 H 122/61 H Blood Pressure Mean (mm Hg) 79 81 Source Monitor Monitor Position Sitting Blood Pressure Location Left Arm History Since Last Visit- (Skip if this is Patient's initial visit) Have you changed medications since your No No last visit? Any new allergies or adverse reactions No No Had a fall/change in ADL's that may No No increase risk of falls Signs or symptoms of abuse and/or No No neglect since last visit Have you been in the hospital since your No No last visit? Has dressing in place as prescribed Yes Yes Has compression in place as prescribed Yes Yes Has offloadiing in place as prescribed Yes Yes Experienced any changes in pain level or No No management Left Footwear No Footwear Other Footwear arjun to left foot, sock to r foot Pain Scale: 0-10 Numeric Is Patient Pain Free? Yes Yes - Nurse 1 - General Ulcer Measurement Start: 11/29/21 10:00 Freq: Status: Active Protocol: Activity Type Activity Date Activity User E-sign Co-sign Detail Recorded Client Recorded Date Recorded By Document 11/29/21 10:00 [facility] [id number] 11/29/21 10:08 BM Document 12/06/21 09:36 DL [id number] 12/06/21 09:42 DL 11/29/21 12/06/21 10:00 09:36 Wound Center Nurse 1 10. L plantar -Current Size (cm) - Length 0.1 0.2 -Current Size (cm) - Width 0.1 0.2 -Current Size (cm) - Depth 0.1 0.6 -Total Square Cm 0.01 0.04 -Date of Last Picture (Recall this 11/29/21 field) -Photo Taken Yes No -Epithelialization Large 67-100% -Tunneling No -Undermining/Tunneling No -Maximum Distance #2 (cm) 0.2 -Circular Undermining No Yes -Exudate Amt Small Small -Exudate Type Serous Serosanguineous -Wound Margin Distinct, Outline Attached -Granulation Amt Small (1-33%) -Granulation Quality [place] -Slough/Fibrin Yes -Necrosis Amt Small (1-33%) None Present (0 %) -Necrotic Tissue Type Adherent Slough -Structure Exposed N/A -Texture (Shannon-wound Skin Appearance) Assessed, Scarring Scarring -Moisture (Shannon-wound Skin Appearance) Assessed,Dry/ Dry/Scaly Scaly -Color (Shannon-wound Skin Appearance) Assessed No Abnormality -Temperature (Shannon-wound Skin No Abnormality No Abnormality Appearance) (Pt Warm) (Pt Warm) -Tenderness on Palpation (Shannon-wound No No Skin Appearance) -Ulcer Cleansing Rinsed/ Rinsed/ Irrigated with Irrigated with Saline Saline -Foul Odor after Cleansing No No -Anesthetic Used 5% Lidocaine 5% Lidocaine Gel Gel WC - Nurse 2 - General Ulcer CM Notes Start: 11/29/21 10:00 Freq: Status: Active Protocol: Activity Type Activity Date Activity User E-sign Co-sign Detail Recorded Client Recorded Date Recorded By Document 11/29/21 10:19 PL [id number] 11/29/21 10:20 PL Document 12/06/21 09:51 JF [id number] 12/06/21 09:53 JF 11/29/21 12/06/21 10:19 09:51 Wound Center Nurse 2 10. L plantar -Time 10:13 09:51 -Correct Patient Yes Yes -Correct Side, Site, Position Yes Yes -Correct Procedure Yes Yes -Procedure Performed Yes Yes -Type of Procedure Debridement Debridement -Clinical Debridement Subcutaneous Subcutaneous -Tissue Removed Subcutaneous Subcutaneous -Post Debridement (cm) - Length 0.2 0.3 -Post Debridement (cm) - Width 0.2 0.4 -Post Debridement (cm) - Depth 0.2 0.6 -Total Square (Post) (cm) 0.04 0.12 -Area of Debridement (cm) - Length 0.2 0.3 -Area of Debridement (cm) - Width 0.2 0.4 -Total Square (Area) (cm) 0.04 0.12 -Tunneling No No -Undermining/Tunneling No No -Circular Undermining No No -Wound/Ulcer Outcome Not Healed Not Healed -Ulcer Cleansing Rinsed/ Rinsed/ Irrigated with Irrigated with Saline Saline -Foul Odor after Cleansing No No -Bioengineered Tissue No No -Bleeding Controlled with Pressure Pressure -Treatment Response Procedure Procedure Tolerated Well Tolerated Well -Offloading Yes -Type of Offloading Surgical Shoe -Debridement - Subq, 1st 20sq cm Yes Yes Pain Scale: 0-10 Numeric Is Patient Pain Free? Yes Yes WC - Nurse 3 - General Ulcer D/C NN Start: 11/29/21 10:00 Freq: Status: Active Protocol: Activity Type Activity Date Activity User E-sign Co-sign Detail Recorded Client Recorded Date Recorded By Document 11/29/21 10:31 [facility] [id number] 11/29/21 10:31 [facility] Document 12/06/21 10:01 [facility] [id number] 12/06/21 10:02 [facility] 11/29/21 12/06/21 10:31 10:01 Wound Care Nurse 3 10. L plantar -Ulcer Cleansing Rinsed/ Rinsed/ Irrigated with Irrigated with Saline Saline -Foul Odor after Cleansing No No -Primary Dressing Applied C Hydrogel ($) Other -Other Dressing hydrogel -Primary Dressing Covered/Secured with Dry Gauze & Dry Gauze & Roll Gauze, Roll Gauze, Secured with Secured with Tape Tape,Other -Other Covering abd abd Left -Compression Wrap Arjun Wrap Arjun Wrap -Other secured w/ arjun arjun to secure Treatment Response Procedure Procedure Tolerated Well Tolerated Well Pain Scale: 0-10 Numeric Is Patient Pain Free? Yes Yes WC - Visit Discharge Discharge Condition Stable Stable Ambulatory Status Wheelchair Wheelchair Transportation Private Auto Private Auto Accompanied by drops off and picks up Assessment/Plan Assessment/Plan (1) Delayed wound healing: CODE(S): T14.8XXD - Other injury of unspecified body region, subsequent encounter (2) Charcot's joint of left foot: CODE(S): M14.672 - Charcot's joint, left ankle and foot (3) Type 2 diabetes mellitus with diabetic polyneuropathy: CODE(S): E11.42 - Type 2 diabetes mellitus with diabetic polyneuropathy QUALIFIERS: Diabetes mellitus termite control service representative insulin use: with termite control service representative use Qualified Code(s): E11.42 - Type 2 diabetes mellitus with diabetic polyneuropathy; Z79.4 - prison (current) use of insulin (4) Chronic ulcer of left foot with fat layer exposed: CODE(S): L97.522 - Non-pressure chronic ulcer of other part of left foot with fat layer exposed (5) Chronic ulcer of left foot with necrosis of muscle: CODE(S): L97.523 - Non-pressure chronic ulcer of other part of left foot with necrosis of muscle PLAN: Plan I reviewed and discussed her case. Debridement was performed as noted. She is reassured no local signs of infection are noted. She completed a full course of advanced wound healing product application, epi fix. To wash daily with antibacterial soap and water. To change dressing daily with hydrogel. Vascular surgery intervention was performed successfully at [facility] recently with Dr. Pang w/ antioplasty at femoral through adductor into popliteal (balloon). To maintain non weightbearing status with the use of assistive devices (knee roller/walker when able secondary to shoulder fracture) left lower extremity. To use wheelchair with the assistance of the help of her . She was advised to avoid direct contact and pressure on the footplate while seated or in her wheelchair. Imaging: X-rays were reviewed from prior emergency room visit in 07/2021. uPdated xrays ordered due to pain and I will call her with the results. To continue nutritional supplementation to optimize healing. She is taking Blue and has also been trying to eat more fresh foods. She is working on more detailed diet planning with her primary care physician. F/u wound care center 1 week. She will be out of town and plans to return in two. I answered all of her questions. To call sooner or go to the emergency room if her clinical appearance worsens or if she develops systemic signs of illness. She is at risk for amputation and limb loss and systemic illness due to her co morbidities. The medical decision making level is low. There is noted low risk of morbidity after considering this treatment plan and diagnostic data. The problems addressed require a low medical decision making level which includes two or more minor problems, a stable chronic illness, or an acute uncomplicated illness or injury. Note: [employer] speech recognition receiving specialist software was used to create portions of this document. Sound-alike and misspelled words, as well as other receiving specialist errors may be contained in the documentation.
[2021-12-13 09:44] VITALS: BP 151/56; PULSE 75; RESP 18; TEMP 37.3
--- NOTE | 2021-12-13 10:53 | PCM.WC.PN ---
History of Present Illness Date of Service: 12/13/21 Chief Complaint: Left foot History of Wound: This is 76-year-old female with diabetic neuropathy history of Charcot left foot with rocker-bottom deformity, coronary artery disease and other comorbidities has a recurrent ulcer. She has had delayed healing of her plantar foot ulcer secondary to rocker-bottom Charcot foot deformity, recurrent ulcers and infections. She completed left lower extremity vascular surgery intervention procedure and had this successfully completed at [facility] with Dr. Pang. He denies fever, chill, nausea, vomiting, calf pain, or diarrhea. She uses a wheelchair most of the time and reports continued compliance. She has changed the dressing daily as advised. She denies odor. she denies pain. she has a new abdominal pain and has been better this past week with offloading. She is scheduled to follow up with pcp soon for abdominal pain and has more tests schedule this afternoon. Progress of Wound: improving Objective Data Objective Data Vital Signs: Vital Signs Temp Pulse Resp BP O2 Del Method 99.2 F H 75 18 151/56 H Room Air 12/13/21 09:44 12/13/21 09:44 12/13/21 09:44 12/13/21 09:44 11/29/21 10:00 Oxygen Delivery Method Room Air Physical Exam Narrative Left foot: Chopart amputation plantar central foot ulcer has no direct probe to bone, necrosis, odor, erythema, or purulence noted. reduced depth noted. There is no cellulitis, no fluctuance or bogginess to the left foot. Negative Claudio and Elizondo sign left. Compartments remain soft to palpate left lower extremity. DP 2/4, left. deep probing noted. ulcer bed with granular base. no midfoot, subtalar or ankle laxity , calor, edema with manipulation. There are no local signs infection. no blister. Debridement Note Debridement Note Wound debrided: left foot Wound Grade/Stage: 2 Type of Debridement: Excisional debridement Anesthesia Used: 4% Lidocaine Solution Depth: in the subcutaneous layer Percentage of wound debrided: 100 Instrument Used: #15 blade Tissue Removed: fibrous, devitalized subcutaneous, biofilm, slough Severity: Fat Layer Exposed Amount of bleeding with debridement: Mild Bleeding Controlled with: Pressure Patient tolerated procedure: Patient tolerated procedure well Post-Debridement Measurements and Additional Note: Post-Debridement Measurements/Treatment WC - Nurse 1 - General Ulcer Assessment Start: 11/29/21 10:00 Freq: Status: Active Protocol: WC.LOWEXT Activity Type Activity Date Activity User E-sign Co-sign Detail Recorded Client Recorded Date Recorded By Document 11/29/21 10:00 BMF [id number] 11/29/21 10:08 BMF Document 12/06/21 09:36 DL [id number] 12/06/21 09:42 DL Document 12/13/21 09:44 DL [id number] 12/13/21 09:50 DL Edit Result 12/13/21 09:44 DL (1) [id number] 12/13/21 09:54 DL (1) Pulse Rate (60-100) => 75 Pulse Location => Monitor Blood Pressure (90/60-120/80) => 151/56 H Blood Pressure Mean (mm Hg) => 87 Source => Monitor 11/29/21 12/06/21 12/13/21 10:00 09:36 09:44 - Today's Visit Information Type of service Follow-up Visit Follow-up Visit Follow-up Visit (Physician/LINE PREP COOK (Physician/LINE PREP COOK (Physician/LINE PREP COOK ) ) ) Arrival Mode Wheelchair Ambulatory Ambulatory Transfer Assistance Other None None Transfer Assist (Other) 1 Patient Identification Verified (Name & Yes Yes Yes ) Patient Requires Transmission-Based No No No Precautions Finger Stick Blood Sugar(mg/dl) (if not checked not checking indicated): Blood Sugar Stated by Stated by Patient Patient Vital Signs Temperature (97.8 F-99.1 F) 96.5 F L 98.4 F 99.2 F H Temperature Source Temporal Temporal Temporal Pulse Rate (60-100) 76 73 75 Pulse Location Monitor Monitor Monitor Respiratory Rate (12-18) 16 20 H 18 Respiratory rate source Observation Observation Observation Oxygen Delivery Method Room Air Blood Pressure (90/60-120/80) 131/54 H 122/61 H 151/56 H Blood Pressure Mean (mm Hg) 79 81 87 Source Monitor Monitor Monitor Position Sitting Blood Pressure Location Left Arm History Since Last Visit- (Skip if this is Patient's initial visit) Have you changed medications since your No No No last visit? Any new allergies or adverse reactions No No No Had a fall/change in ADL's that may No No No increase risk of falls Signs or symptoms of abuse and/or No No No neglect since last visit Have you been in the hospital since your No No No last visit? Has dressing in place as prescribed Yes Yes Yes Has compression in place as prescribed Yes Yes N/A Has offloadiing in place as prescribed Yes Yes Yes Experienced any changes in pain level or No No No management Left Footwear No Footwear No Footwear Other Footwear arjun to left foot, sock to r foot Pain Scale: 0-10 Numeric Is Patient Pain Free? Yes Yes Yes WC - Nurse 1 - General Ulcer Measurement Start: 11/29/21 10:00 Freq: Status: Active Protocol: Activity Type Activity Date Activity User E-sign Co-sign Detail Recorded Client Recorded Date Recorded By Document 11/29/21 10:00 [facility] [id number] 11/29/21 10:08 BM Document 12/06/21 09:36 DL [id number] 12/06/21 09:42 DL Document 12/13/21 09:44 DL [id number] 12/13/21 09:50 DL 11/29/21 12/06/21 12/13/21 10:00 09:36 09:44 Wound Center Nurse 1 10. L plantar -Current Size (cm) - Length 0.1 0.2 0.2 -Current Size (cm) - Width 0.1 0.2 0.2 -Current Size (cm) - Depth 0.1 0.6 0.5 -Total Square Cm 0.01 0.04 0.04 -Date of Last Picture (Recall this 11/29/21 field) -Photo Taken Yes No No -Epithelialization Large 67-100% -Tunneling No -Undermining/Tunneling No -Maximum Distance #2 (cm) 0.2 0.3 -Circular Undermining No Yes Yes -Exudate Amt Small Small Small -Exudate Type Serous Serosanguineous Serosanguineous -Wound Margin Distinct, Distinct, Outline Outline Attached Attached -Granulation Amt Small (1-33%) Small (1-33%) -Granulation Quality [place] Pale -Slough/Fibrin Yes -Necrosis Amt Small (1-33%) None Present (0 Small (1-33%) %) -Necrotic Tissue Type Adherent Slough Adherent Slough -Structure Exposed N/A -Texture (Shannon-wound Skin Appearance) Assessed, Scarring Scarring Scarring -Moisture (Shannon-wound Skin Appearance) Assessed,Dry/ Dry/Scaly Dry/Scaly Scaly -Color (Shannon-wound Skin Appearance) Assessed No Abnormality No Abnormality -Temperature (Shannon-wound Skin No Abnormality No Abnormality No Abnormality Appearance) (Pt Warm) (Pt Warm) (Pt Warm) -Tenderness on Palpation (Shannon-wound No No No Skin Appearance) -Ulcer Cleansing Rinsed/ Rinsed/ Rinsed/ Irrigated with Irrigated with Irrigated with Saline Saline Saline -Foul Odor after Cleansing No No No -Anesthetic Used 5% Lidocaine 5% Lidocaine 5% Lidocaine Gel Gel Gel WC - Nurse 2 - General Ulcer CM Notes Start: 11/29/21 10:00 Freq: Status: Active Protocol: Activity Type Activity Date Activity User E-sign Co-sign Detail Recorded Client Recorded Date Recorded By Document 11/29/21 10:19 PL [id number] 11/29/21 10:20 PL Document 12/06/21 09:51 [id number] 12/06/21 09:53 Document 12/13/21 10:16 PL [id number] 12/13/21 10:17 PL 11/29/21 12/06/21 12/13/21 10:19 09:51 10:16 Wound Center Nurse 2 10. L plantar -Time 10:13 09:51 10:02 -Correct Patient Yes Yes Yes -Correct Side, Site, Position Yes Yes Yes -Correct Procedure Yes Yes Yes -Procedure Performed Yes Yes Yes -Type of Procedure Debridement Debridement Debridement -Clinical Debridement Subcutaneous Subcutaneous Subcutaneous -Tissue Removed Subcutaneous Subcutaneous Subcutaneous -Post Debridement (cm) - Length 0.2 0.3 0.2 -Post Debridement (cm) - Width 0.2 0.4 0.2 -Post Debridement (cm) - Depth 0.2 0.6 0.2 -Total Square (Post) (cm) 0.04 0.12 0.04 -Area of Debridement (cm) - Length 0.2 0.3 0.2 -Area of Debridement (cm) - Width 0.2 0.4 0.2 -Total Square (Area) (cm) 0.04 0.12 0.04 -Tunneling No No No -Undermining/Tunneling No No No -Circular Undermining No No No -Wound/Ulcer Outcome Not Healed Not Healed Not Healed -Ulcer Cleansing Rinsed/ Rinsed/ Rinsed/ Irrigated with Irrigated with Irrigated with Saline Saline Saline -Foul Odor after Cleansing No No No -Bioengineered Tissue No No No -Bleeding Controlled with Pressure Pressure Pressure -Treatment Response Procedure Procedure Procedure Tolerated Well Tolerated Well Tolerated Well -Offloading Yes -Type of Offloading Surgical Shoe -Debridement - Subq, 1st 20sq cm Yes Yes Yes Pain Scale: 0-10 Numeric Is Patient Pain Free? Yes Yes Yes - Nurse 3 - General Ulcer D/C NN Start: 11/29/21 10:00 Freq: Status: Active Protocol: Activity Type Activity Date Activity User E-sign Co-sign Detail Recorded Client Recorded Date Recorded By Document 11/29/21 10:31 [facility] [id number] 11/29/21 10:31 [facility] Document 12/06/21 10:01 [facility] [id number] 12/06/21 10:02 [facility] Document 12/13/21 10:22 DL [id number] 12/13/21 10:23 DL 11/29/21 12/06/21 12/13/21 10:31 10:01 10:22 Wound Care Nurse 3 10. L plantar -Ulcer Cleansing Rinsed/ Rinsed/ Rinsed/ Irrigated with Irrigated with Irrigated with Saline Saline Saline -Foul Odor after Cleansing No No No -Primary Dressing Applied C Hydrogel ($) Other -Other Dressing hydrogel hydrogel -Primary Dressing Covered/Secured with Dry Gauze & Dry Gauze & Dry Gauze & Roll Gauze, Roll Gauze, Roll Gauze, Secured with Secured with Secured with Tape Tape,Other Tape -Other Covering abd abd Left -Compression Wrap Arjun Wrap Arjun Wrap -Other secured w/ arjun arjun to secure Treatment Response Procedure Procedure Procedure Tolerated Well Tolerated Well Tolerated Well Pain Scale: 0-10 Numeric Is Patient Pain Free? 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 Debridement was performed as noted. She is reassured no local signs of infection are noted. She completed a full course of advanced wound healing product application, epi fix. To wash daily with antibacterial soap and water. To change dressing daily with hydrogel. Vascular surgery intervention was performed successfully at [facility] recently with Dr. Pang w/ antioplasty at femoral through adductor into popliteal (balloon). To maintain non weightbearing status with the use of assistive devices (knee roller/walker when able secondary to shoulder fracture) left lower extremity. To use wheelchair with the assistance of the help of her . She was advised to avoid direct contact and pressure on the footplate while seated or in her wheelchair. Imaging: X-rays were reviewed from prior emergency room visit in 07/2021. uPdated xrays ordered due to pain and I will call her with the results. To continue nutritional supplementation to optimize healing. She is taking Blue and has also been trying to eat more fresh foods. She is working on more detailed diet planning with her primary care physician. F/u wound care center 1 week. I answered all of her questions. To call sooner or go to the emergency room if her clinical appearance worsens or if she develops systemic signs of illness. Her foot is stable at this time. She is at risk for amputation and limb loss and systemic illness due to her comorbidities. Note: [employer] speech recognition medical billing associate software was used to create portions of this document. Sound-alike and misspelled words, as well as other medical billing associate errors may be contained in the documentation.
[2021-12-20 09:48] VITALS: BP 185/74; PULSE 70; RESP 22; TEMP 36.7
--- NOTE | 2021-12-20 10:17 | PCM.WC.PN ---
History of Present Illness Date of Service: 12/20/21 Chief Complaint: Left foot History of Wound: This is 76-year-old female with diabetic neuropathy history of Charcot left foot with rocker-bottom deformity, coronary artery disease and other comorbidities has a recurrent ulcer. She has had delayed healing of her plantar foot ulcer secondary to rocker-bottom Charcot foot deformity, recurrent ulcers and infections. She completed left lower extremity vascular surgery intervention procedure and had this successfully completed at [facility] with Dr. Pang. He denies fever, chill, nausea, vomiting, calf pain, or diarrhea. She uses a wheelchair most of the time and reports continued compliance. She has changed the dressing daily as advised. She denies odor. she denies pain. she has abdominal pain and has not been able to offload well this past week due to fatigue and balance loss. Her case is getting [facility] work up and she will not be able to follow up next week. Progress of Wound: worse Objective Data Objective Data Vital Signs: Vital Signs Temp Pulse Resp BP O2 Del Method 98.1 F 70 22 H 185/74 H Room Air 12/20/21 09:48 12/20/21 09:48 12/20/21 09:48 12/20/21 09:48 11/29/21 10:00 Oxygen Delivery Method Room Air Physical Exam Narrative Left foot: Chopart amputation plantar central foot ulcer has no direct probe to bone, necrosis, odor, erythema, or purulence noted. reduced depth noted. There is no cellulitis, no fluctuance or bogginess to the left foot. Negative Claudio and Elizondo sign left. Compartments remain soft to palpate left lower extremity. DP 2/4, left. deep probing noted. ulcer bed with granular base. with blister adjacent and this is a cluster wound now with additional granular base exposure medial to initial wound Debridement Note Debridement Note Wound debrided: left foot Wound Grade/Stage: 2 Type of Debridement: Excisional debridement Anesthesia Used: 4% Lidocaine Solution Depth: in the subcutaneous layer Percentage of wound debrided: 100 Instrument Used: #15 blade Tissue Removed: fibrous, devitalized subcutaneous, biofilm, slough Severity: Fat Layer Exposed Amount of bleeding with debridement: Mild Bleeding Controlled with: Pressure Patient tolerated procedure: Patient tolerated procedure well Post-Debridement Measurements and Additional Note: Post-Debridement Measurements/Treatment WC - Nurse 1 - General Ulcer Assessment Start: 11/29/21 10:00 Freq: Status: Active Protocol: EUGENE Activity Type Activity Date Activity User E-sign Co-sign Detail Recorded Client Recorded Date Recorded By Document 11/29/21 10:00 BMF [id number] 11/29/21 10:08 BMF Document 12/06/21 09:36 DL [id number] 12/06/21 09:42 DL Document 12/13/21 09:44 DL [id number] 12/13/21 09:50 DL Edit Result 12/13/21 09:44 DL (1) [id number] 12/13/21 09:54 DL Document 12/20/21 09:48 DL [id number] 12/20/21 09:54 DL (1) Pulse Rate (60-100) => 75 Pulse Location => Monitor Blood Pressure (90/60-120/80) => 151/56 H Blood Pressure Mean (mm Hg) => 87 Source => Monitor 11/29/21 12/06/21 12/13/21 10:00 09:36 09:44 - Today's Visit Information Type of service Follow-up Visit Follow-up Visit Follow-up Visit (Physician/PLANETARIUM TECHNICIAN (Physician/PLANETARIUM TECHNICIAN (Physician/PLANETARIUM TECHNICIAN ) ) ) Arrival Mode Wheelchair Ambulatory Ambulatory Transfer Assistance Other None None Transfer Assist (Other) 1 Patient Identification Verified (Name & Yes Yes Yes ) Patient Requires Transmission-Based No No No Precautions Finger Stick Blood Sugar(mg/dl) (if not checked not checking indicated): Blood Sugar Stated by Stated by Patient Patient Vital Signs Temperature (97.8 F-99.1 F) 96.5 F L 98.4 F 99.2 F H Temperature Source Temporal Temporal Temporal Pulse Rate (60-100) 76 73 75 Pulse Location Monitor Monitor Monitor Respiratory Rate (12-18) 16 20 H 18 Respiratory rate source Observation Observation Observation Oxygen Delivery Method Room Air Blood Pressure (90/60-120/80) 131/54 H 122/61 H 151/56 H Blood Pressure Mean (mm Hg) 79 81 87 Source Monitor Monitor Monitor Position Sitting Blood Pressure Location Left Arm History Since Last Visit- (Skip if this is Patient's initial visit) Have you changed medications since your No No No last visit? Any new allergies or adverse reactions No No No Had a fall/change in ADL's that may No No No increase risk of falls Signs or symptoms of abuse and/or No No No neglect since last visit Have you been in the hospital since your No No No last visit? Has dressing in place as prescribed Yes Yes Yes Has compression in place as prescribed Yes Yes N/A Has offloadiing in place as prescribed Yes Yes Yes Experienced any changes in pain level or No No No management Left Footwear No Footwear No Footwear Other Footwear arjun to left foot, sock to r foot Pain Scale: 0-10 Numeric Is Patient Pain Free? Yes Yes Yes 12/20/21 09:48 WC - Today's Visit Information Type of service Follow-up Visit (Physician/PLANETARIUM TECHNICIAN ) Arrival Mode Wheelchair Transfer Assistance Manual Transfer Assist (Other) x1 Patient Identification Verified (Name & Yes ) Patient Requires Transmission-Based Precautions Finger Stick Blood Sugar(mg/dl) (if 81 indicated): Blood Sugar Stated by Patient Vital Signs Temperature (97.8 F-99.1 F) 98.1 F Temperature Source Temporal Pulse Rate (60-100) 70 Pulse Location Monitor Respiratory Rate (12-18) 22 H Respiratory rate source Observation Oxygen Delivery Method Blood Pressure (90/60-120/80) 185/74 H Blood Pressure Mean (mm Hg) 111 Source Monitor Position Blood Pressure Location History Since Last Visit- (Skip if this is Patient's initial visit) Have you changed medications since your No last visit? Any new allergies or adverse reactions No Had a fall/change in ADL's that may No increase risk of falls Signs or symptoms of abuse and/or No neglect since last visit Have you been in the hospital since your No last visit? Has dressing in place as prescribed Yes Has compression in place as prescribed Has offloadiing in place as prescribed Yes Experienced any changes in pain level or No management Left Footwear Other Footwear Pain Scale: 0-10 Numeric Is Patient Pain Free? Yes - Nurse 1 - General Ulcer Measurement Start: 11/29/21 10:00 Freq: Status: Active Protocol: Activity Type Activity Date Activity User E-sign Co-sign Detail Recorded Client Recorded Date Recorded By Document 11/29/21 10:00 [facility] [id number] 11/29/21 10:08 BMF Document 12/06/21 09:36 DL [id number] 12/06/21 09:42 DL Document 12/13/21 09:44 DL [id number] 12/13/21 09:50 DL Document 12/20/21 09:48 DL [id number] 12/20/21 09:54 DL 11/29/21 12/06/21 12/13/21 10:00 09:36 09:44 Wound Center Nurse 1 10. L plantar cluster -Current Size (cm) - Length 0.1 0.2 0.2 -Current Size (cm) - Width 0.1 0.2 0.2 -Current Size (cm) - Depth 0.1 0.6 0.5 -Total Square Cm 0.01 0.04 0.04 -Date of Last Picture (Recall this 11/29/21 field) -Photo Taken Yes No No -Epithelialization Large 67-100% -Tunneling No -Undermining/Tunneling No -Maximum Distance #2 (cm) 0.2 0.3 -Circular Undermining No Yes Yes -Exudate Amt Small Small Small -Exudate Type Serous Serosanguineous Serosanguineous -Wound Margin Distinct, Distinct, Outline Outline Attached Attached -Granulation Amt Small (1-33%) Small (1-33%) -Granulation Quality [place] Pale -Slough/Fibrin Yes -Necrosis Amt Small (1-33%) None Present (0 Small (1-33%) %) -Necrotic Tissue Type Adherent Slough Adherent Slough -Structure Exposed N/A -Texture (Shannon-wound Skin Appearance) Assessed, Scarring Scarring Scarring -Moisture (Shannon-wound Skin Appearance) Assessed,Dry/ Dry/Scaly Dry/Scaly Scaly -Color (Shannon-wound Skin Appearance) Assessed No Abnormality No Abnormality -Temperature (Shannon-wound Skin No Abnormality No Abnormality No Abnormality Appearance) (Pt Warm) (Pt Warm) (Pt Warm) -Tenderness on Palpation (Shannon-wound No No No Skin Appearance) -Ulcer Cleansing Rinsed/ Rinsed/ Rinsed/ Irrigated with Irrigated with Irrigated with Saline Saline Saline -Foul Odor after Cleansing No No No -Anesthetic Used 5% Lidocaine 5% Lidocaine 5% Lidocaine Gel Gel Gel 12/20/21 09:48 Wound Center Nurse 1 10. L plantar cluster -Current Size (cm) - Length 1 -Current Size (cm) - Width 1 -Current Size (cm) - Depth 0.1 -Total Square Cm 1 -Date of Last Picture (Recall this field) -Photo Taken No -Epithelialization -Tunneling -Undermining/Tunneling -Maximum Distance #2 (cm) -Circular Undermining -Exudate Amt Small -Exudate Type Yellow/Green -Wound Margin Indistinct, Non -Visible -Granulation Amt None Present (0 %) -Granulation Quality -Slough/Fibrin -Necrosis Amt Small (1-33%) -Necrotic Tissue Type Adherent Slough -Structure Exposed N/A -Texture (Shannon-wound Skin Appearance) Scarring -Moisture (Shannon-wound Skin Appearance) Dry/Scaly -Color (Shannon-wound Skin Appearance) No Abnormality -Temperature (Shannon-wound Skin No Abnormality Appearance) (Pt Warm) -Tenderness on Palpation (Shannon-wound No Skin Appearance) -Ulcer Cleansing Rinsed/ Irrigated with Saline -Foul Odor after Cleansing No -Anesthetic Used 5% Lidocaine Gel - Nurse 2 - General Ulcer CM Notes Start: 11/29/21 10:00 Freq: Status: Active Protocol: Activity Type Activity Date Activity User E-sign Co-sign Detail Recorded Client Recorded Date Recorded By Document 11/29/21 10:19 GLORIA [id number] 11/29/21 10:20 Document 12/06/21 09:51 [id number] 12/06/21 09:53 Document 12/13/21 10:16 GLORIA [id number] 12/13/21 10:17 Document 12/20/21 10:05 [id number] 12/20/21 10:08 11/29/21 12/06/21 12/13/21 10:19 09:51 10:16 Wound Center Nurse 2 10. L plantar cluster -Time 10:13 09:51 10:02 -Correct Patient Yes Yes Yes -Correct Side, Site, Position Yes Yes Yes -Correct Procedure Yes Yes Yes -Procedure Performed Yes Yes Yes -Type of Procedure Debridement Debridement Debridement -Clinical Debridement Subcutaneous Subcutaneous Subcutaneous -Tissue Removed Subcutaneous Subcutaneous Subcutaneous -Post Debridement (cm) - Length 0.2 0.3 0.2 -Post Debridement (cm) - Width 0.2 0.4 0.2 -Post Debridement (cm) - Depth 0.2 0.6 0.2 -Total Square (Post) (cm) 0.04 0.12 0.04 -Area of Debridement (cm) - Length 0.2 0.3 0.2 -Area of Debridement (cm) - Width 0.2 0.4 0.2 -Total Square (Area) (cm) 0.04 0.12 0.04 -Tunneling No No No -Undermining/Tunneling No No No -Circular Undermining No No No -Wound/Ulcer Outcome Not Healed Not Healed Not Healed -Ulcer Cleansing Rinsed/ Rinsed/ Rinsed/ Irrigated with Irrigated with Irrigated with Saline Saline Saline -Foul Odor after Cleansing No No No -Bioengineered Tissue No No No -Bleeding Controlled with Pressure Pressure Pressure -Treatment Response Procedure Procedure Procedure Tolerated Well Tolerated Well Tolerated Well -Offloading Yes -Type of Offloading Surgical Shoe -Assistive Device(s) -Debridement - Subq, 1st 20sq cm Yes Yes Yes Pain Scale: 0-10 Numeric Is Patient Pain Free? Yes Yes Yes 12/20/21 10:05 Wound Center Nurse 2 10. L plantar cluster -Time 10:06 -Correct Patient Yes -Correct Side, Site, Position Yes -Correct Procedure Yes -Procedure Performed Yes -Type of Procedure Debridement -Clinical Debridement Subcutaneous -Tissue Removed Subcutaneous -Post Debridement (cm) - Length 1.5 -Post Debridement (cm) - Width 1.4 -Post Debridement (cm) - Depth 0.3 -Total Square (Post) (cm) 2.10 -Area of Debridement (cm) - Length 1.5 -Area of Debridement (cm) - Width 1.4 -Total Square (Area) (cm) 2.10 -Tunneling No -Undermining/Tunneling No -Circular Undermining No -Wound/Ulcer Outcome Not Healed -Ulcer Cleansing Rinsed/ Irrigated with Saline -Foul Odor after Cleansing No -Bioengineered Tissue No -Bleeding Controlled with Pressure -Treatment Response Procedure Tolerated Well -Offloading No -Type of Offloading -Assistive Device(s) Wheelchair -Debridement - Subq, 1st 20sq cm Yes Pain Scale: 0-10 Numeric Is Patient Pain Free? Yes - Nurse 3 - General Ulcer D/C NN Start: 11/29/21 10:00 Freq: Status: Active Protocol: Activity Type Activity Date Activity User E-sign Co-sign Detail Recorded Client Recorded Date Recorded By Document 11/29/21 10:31 [facility] [id number] 11/29/21 10:31 [facility] Document 12/06/21 10:01 [facility] [id number] 12/06/21 10:02 [facility] Document 12/13/21 10:22 DL [id number] 12/13/21 10:23 DL 11/29/21 12/06/21 12/13/21 10:31 10:01 10:22 Wound Care Nurse 3 10. L plantar cluster -Ulcer Cleansing Rinsed/ Rinsed/ Rinsed/ Irrigated with Irrigated with Irrigated with Saline Saline Saline -Foul Odor after Cleansing No No No -Primary Dressing Applied C Hydrogel ($) Other -Other Dressing hydrogel hydrogel -Primary Dressing Covered/Secured with Dry Gauze & Dry Gauze & Dry Gauze & Roll Gauze, Roll Gauze, Roll Gauze, Secured with Secured with Secured with Tape Tape,Other Tape -Other Covering abd abd Left -Compression Wrap Arjun Wrap Arjun Wrap -Other secured w/ arjun arjun to secure Treatment Response Procedure Procedure Procedure Tolerated Well Tolerated Well Tolerated Well Pain Scale: 0-10 Numeric Is Patient Pain Free? Yes Yes Yes WC - Visit Discharge Discharge Condition Stable Stable Stable Ambulatory Status Wheelchair Wheelchair Wheelchair Transportation Private Auto Private Auto Private Auto Accompanied by drops off and picks up Assessment/Plan Assessment/Plan (1) Delayed wound healing: CODE(S): T14.8XXD - Other injury of unspecified body region, subsequent encounter (2) Charcot's joint of left foot: CODE(S): M14.672 - Charcot's joint, left ankle and foot (3) Type 2 diabetes mellitus with diabetic polyneuropathy: CODE(S): E11.42 - Type 2 diabetes mellitus with diabetic polyneuropathy QUALIFIERS: Diabetes mellitus correction insulin use: with correction use Qualified Code(s): E11.42 - Type 2 diabetes mellitus with diabetic polyneuropathy; Z79.4 - 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 Debridement was performed as noted including blister loose tissue removal. She is reassured no local signs of infection are noted. She completed a full course of advanced wound healing product application, epi fix. To wash daily with antibacterial soap and water. To change dressing daily with iCouch ag. Vascular surgery intervention was performed successfully at [facility] recently with Dr. Pang w/ antioplasty at femoral through adductor into popliteal (balloon). To maintain non weightbearing status with the use of assistive devices (knee roller/walker when able secondary to shoulder fracture) left lower extremity. To use wheelchair with the assistance of the help of her . She was advised to avoid direct contact and pressure on the footplate while seated or in her wheelchair. Imaging: X-rays were reviewed from prior emergency room visit in 07/2021. uPdated xrays ordered due to pain and I will call her with the results. To continue nutritional supplementation to optimize healing. She is taking Blue and has also been trying to eat more fresh foods. She is working on more detailed diet planning with her primary care physician. F/u wound care center 1 week. I answered all of her questions. To call sooner or go to the emergency room if her clinical appearance worsens or if she develops systemic signs of illness. Her foot is stable at this time. She is at risk for amputation and limb loss and systemic illness due to her comorbidities. She will follow up in two weeks when she returns from out of town abdominal pain work up. Note: [employer] speech recognition dining car conductor software was used to create portions of this document. Sound-alike and misspelled words, as well as other dining car conductor errors may be contained in the documentation. The medical decision making level is moderate. There is noted moderate risk of morbidity after considering this treatment plan and diagnostic data. Considerations were given to prescription management, decisions regarding surgical options, or social determinants of health. The problems addressed require a moderate decision making level which includes one or more chronic illnesses (w/ exacerbation, progression, or side effects), two or more stable chronic illnesses, one undiagnosed new problem w/ uncertain prognosis, one acute illness with systemic symptoms, or one acute complicated injury.
== END 2021-12-24 23:59 | disposition home or self-care (01) ==
LOC: WC 09:45
PROVIDERS: PCP Family Medicine; Referring Provider Podiatrist; Visit Provider Podiatrist
DX: E11.621 Type 2 diabetes mellitus with foot ulcer (principal); L97.523 Non-pressure chronic ulcer of other part of left foot with necrosis of muscle; L97.522 Non-pressure chronic ulcer of other part of left foot with fat layer exposed; E11.42 Type 2 diabetes mellitus with diabetic polyneuropathy; E11.610 Type 2 diabetes mellitus with diabetic neuropathic arthropathy; Z79.4 Long term (current) use of insulin; M25.572 Pain in left ankle and joints of left foot; I25.10 Atherosclerotic heart disease of native coronary artery without angina pectoris; Z79.01 Long term (current) use of anticoagulants; Z79.02 Long term (current) use of antithrombotics/antiplatelets; Z79.890 Hormone replacement therapy; Z79.899 Other long term (current) drug therapy
CPT/HCPCS: 11042

== ENCOUNTER → 2021-12-26 | Outpatient (CLI) | payer MEDICARE, OTHER, SELFPAY ==
--- NOTE | 2021-12-26 15:40 | RAD_ITS ---
INDICATION: PNEUMONIA EXAMINATION/TECHNIQUE: X-RAY - XR Chest 2 Views COMPARISON: 12/05/2021. FINDINGS: LINES/DEVICES: Plate and screws visualized internally fixating the lower cervical spine. Sternal wires are seen in position. Surgical clips visualized in the epigastric region. LUNGS: Prominence of the bronchovascular and interstitial lung markings is visualized bilaterally with patchy airspace opacification visualized, linear streaky subsegmental atelectatic changes seen. Mild haziness overlying the left hemithorax. Mild blunting of the right costophrenic angle is visualized, findings suggestive of left pleural fluid and small right pleural fluid. This was not visualized on the prior study dated 12/05/2021. MEDIASTINUM AND CARDIOVASCULAR STRUCTURES: Cardiac silhouette slightly prominent in size however this could be artifactual due to the poor inspiratory effort. BONES AND SOFT TISSUES: Unremarkable. RAD/Chest PA and Lateral IMPRESSION: Bilateral lung opacification suggestive of bilateral infiltrates and left pleural fluid effusion Electronically Signed: Aron Mckeon MD at 16:32 EDT ,
== END | disposition home or self-care (01) ==
LOC: MTRAD 15:35
PROVIDERS: PCP Family Medicine; Referring Provider Family Medicine; Visit Provider Family Medicine
DX: J18.9 Pneumonia, unspecified organism (principal)
CPT/HCPCS: 71046

== ENCOUNTER 2022-01-24 09:45 | Outpatient (RCR) | payer MEDICARE, OTHER, SELFPAY ==
[2021-12-25 00:27] VITALS: BP 185/74; PULSE 70; RESP 22; TEMP 36.7
[2022-01-10 09:50] VITALS: BP 159/74; PULSE 75; RESP 18; TEMP 36.2
--- NOTE | 2022-01-10 11:17 | PN.PCM_ITS ---
History of Present Illness Date of Service: 01/10/22 Chief Complaint: Left foot History of Wound: This is 76-year-old female with diabetic neuropathy history of Charcot left foot with rocker-bottom deformity, coronary artery disease and other comorbidities has a recurrent ulcer. She has had delayed healing of her plantar foot ulcer secondary to rocker-bottom Charcot foot deformity, recurrent ulcers and infections. She completed left lower extremity vascular surgery intervention procedure and had this successfully completed at [facility] with Dr. Pang. He denies fever, chill, nausea, vomiting, calf pain, or diarrhea. The past month she has had abdominal pain and was recently diagnose d at an outside facility with bilateral pneumonia in which she is taking antibiotics and additional medications for treatment. She is starting to feel better and is able to resume better offloading. While she was very ill she reports she had to stand and walk on her wound because she was too fatigued. Her helps her a lot at home. Progress of Wound: Resolved blister and stable Objective Data Objective Data Vital Signs: Vital Signs Temp Pulse Resp BP 97.2 F L 75 18 159/74 H 01/10/22 09:50 01/10/22 09:50 01/10/22 09:50 01/10/22 09:50 Physical Exam Narrative Left foot: Chopart amputation plantar central foot ulcer has no direct probe to bone, necrosis, odor, erythema, or purulence noted. reduced depth noted. There is no cellulitis, no fluctuance or bogginess to the left foot. Negative Claudio and Elizondo sign left. Compartments remain soft to palpate left lower extremity. DP 2/4, left. deep probing noted. ulcer bed with granular base. with blister resolved. this is a cluster wound now with additional granular base exposure medial to initial wound Debridement Note Debridement Note Wound debrided: left foot Wound Grade/Stage: 2 Type of Debridement: Excisional debridement Anesthesia Used: 4% Lidocaine Solution Depth: in the subcutaneous layer Percentage of wound debrided: 100 Instrument Used: #15 blade Tissue Removed: fibrous, devitalized subcutaneous, biofilm, slough Severity: Fat Layer Exposed Amount of bleeding with debridement: Mild Bleeding Controlled with: Pressure Patient tolerated procedure: Patient tolerated procedure well Post-Debridement Measurements and Additional Note: Post-Debridement Measurements/Treatment WC - Nurse 1 - General Ulcer Assessment Start: 01/10/22 09:50 Freq: Status: Active Protocol: EUGENE Activity Type Activity Date Activity User E-sign Co-sign Detail Recorded Client Recorded Date Recorded By Document 01/10/22 09:50 Desktop 01/10/22 09:54 01/10/22 09:50 - Today's Visit Information Type of service Follow-up Visit (Physician/ASSISTANT DIRECTOR OF PLANT OPERATIONS ) Arrival Mode Wheelchair Transfer Assistance None Patient Identification Verified (Name & Yes ) Patient Requires Transmission-Based No Precautions Vital Signs Temperature (97.8 F-99.1 F) 97.2 F L Temperature Source Temporal Pulse Rate (60-100) 75 Pulse Location Monitor Respiratory Rate (12-18) 18 Respiratory rate source Observation Blood Pressure (90/60-120/80) 159/74 H Blood Pressure Mean (mm Hg) 102 Source Monitor Position Semi-Fowlers Blood Pressure Location Left Arm History Since Last Visit- (Skip if this is Patient's initial visit) Have you changed medications since your No last visit? Any new allergies or adverse reactions No Had a fall/change in ADL's that may No increase risk of falls Signs or symptoms of abuse and/or No neglect since last visit Have you been in the hospital since your No last visit? Has dressing in place as prescribed Yes Has compression in place as prescribed No Has offloadiing in place as prescribed No Experienced any changes in pain level or No management Pain Scale: 0-10 Numeric Is Patient Pain Free? Yes - Nurse 1 - General Ulcer Measurement Start: 01/10/22 09:50 Freq: Status: Active Protocol: Activity Type Activity Date Activity User E-sign Co-sign Detail Recorded Client Recorded Date Recorded By Document 01/10/22 09:50 [email or web address] 01/10/22 09:54 01/10/22 09:50 Wound Center Nurse 1 10. L plantar cluster -Combined with other wound No -Current Size (cm) - Length 0.9 -Current Size (cm) - Width 1.3 -Current Size (cm) - Depth 0.2 -Total Square Cm 1.17 -Photo Taken Yes -Tunneling No -Undermining/Tunneling No -Circular Undermining No -Exudate Amt Medium -Exudate Type Serosanguineous -Wound Margin Thickened -Granulation Amt Medium (34-66%) -Granulation Quality Severance -Slough/Fibrin Yes -Necrosis Amt None Present (0 %) -Necrotic Tissue Type Adherent Slough -Structure Exposed Fat Layer Exposed -Texture (Shannon-wound Skin Appearance) Callus -Moisture (Shannon-wound Skin Appearance) Assessed -Color (Shannon-wound Skin Appearance) Assessed -Temperature (Shannon-wound Skin No Abnormality Appearance) (Pt Warm) -Tenderness on Palpation (Shannon-wound No Skin Appearance) -Ulcer Cleansing Wound Cleanser -Foul Odor after Cleansing No -Anesthetic Used 5% Lidocaine Gel WC - Nurse 2 - General Ulcer CM Notes Start: 01/10/22 09:50 Freq: Status: Active Protocol: Activity Type Activity Date Activity User E-sign Co-sign Detail Recorded Client Recorded Date Recorded By Document 01/10/22 10:10 [id number] 01/10/22 10:12 [email or web address] 01/10/22 10:10 Wound Center Nurse 2 -Time 10:10 -Correct Patient Yes -Correct Side, Site, Position Yes -Correct Procedure Yes -Procedure Performed Yes -Type of Procedure Debridement -Clinical Debridement Subcutaneous -Tissue Removed Subcutaneous -Post Debridement (cm) - Length 1 -Post Debridement (cm) - Width 2.9 -Post Debridement (cm) - Depth 0.2 -Total Square (Post) (cm) 2.9 -Area of Debridement (cm) - Length 1.0 -Area of Debridement (cm) - Width 2.9 -Total Square (Area) (cm) 2.90 -Tunneling No -Undermining/Tunneling No -Circular Undermining No -Wound/Ulcer Outcome Not Healed -Ulcer Cleansing Rinsed/ Irrigated with Saline -Foul Odor after Cleansing No -Bioengineered Tissue No -Bleeding Controlled with Pressure -Treatment Response Procedure Tolerated Well -Offloading Yes -Type of Offloading Surgical Shoe -Assistive Device(s) Wheelchair -Debridement - Subq, 1st 20sq cm Yes Pain Scale: 0-10 Numeric Is Patient Pain Free? Yes - Nurse 3 - General Ulcer D/C NN Start: 01/10/22 09:50 Freq: Status: Active Protocol: Activity Type Activity Date Activity User E-sign Co-sign Detail Recorded Client Recorded Date Recorded By Document 01/10/22 10:24 RB [id number] 01/10/22 10:25 RB 01/10/22 10:24 Wound Care Nurse 3 10. L plantar cluster -Ulcer Cleansing Rinsed/ Irrigated with Saline -Primary Dressing Applied Aquacel AG 2x2 -Primary Dressing Covered/Secured with Dry Gauze,Dry Gauze & Roll Gauze,Secured with Tape -Aquacel AG 2x2 1 Left -Tubular Bandage Single Layer -Size of Tubigrip Used Size D -Size D ($) 1 Treatment Response Procedure Tolerated Well Pain Scale: 0-10 Numeric Is Patient Pain Free? Yes WC - Visit Discharge Discharge Condition Stable Ambulatory Status Wheelchair Transportation Private Auto Medication Reconcilliation completed & No provided to patient/care provider Clinical Summary of Care Provided Yes Assessment/Plan Assessment/Plan (1) Delayed wound healing: CODE(S): T14.8XXD - Other injury of unspecified body region, subsequent encounter (2) Charcot's joint of left foot: CODE(S): M14.672 - Charcot's joint, left ankle and foot (3) Type 2 diabetes mellitus with diabetic polyneuropathy: CODE(S): E11.42 - Type 2 diabetes mellitus with diabetic polyneuropathy QUALIFIERS: Diabetes mellitus embedded software engineer insulin use: with embedded software engineer use Qualified Code(s): E11.42 - Type 2 diabetes mellitus with diabetic polyneuropathy; Z79.4 - therapeutic recreation assistant (current) use of insulin (4) Chronic ulcer of left foot with fat layer exposed: CODE(S): L97.522 - Non-pressure chronic ulcer of other part of left foot with fat layer exposed PLAN: Plan I reviewed and discussed her case. Debridement was performed as noted in the clinical nursing panel. She is reassured no local signs of infection are noted. She completed a full course of advanced wound healing product application, epi fix. To wash daily with antibacterial soap and water. To change dressing daily with aquacell ag. Vascular surgery intervention was performed successfully at [facility] recently with Dr. Pang w/ antioplasty at femoral through adductor into popliteal (balloon). To maintain non weightbearing status with the use of assistive devices (knee roller/walker when able secondary to shoulder fracture) left lower extremity. To use wheelchair with the assistance of the help of her . She was advised to avoid direct contact and pressure on the footplate while seated or in her wheelchair. Imaging: X-rays were reviewed from prior emergency room visit in 07/2021. uPdated xrays ordered due to pain and I will call her with the results. To continue nutritional supplementation to optimize healing. She is taking Blue and has also been trying to eat more fresh foods. She is working on more detailed diet planning with her primary care physician. Already already F/u wound care center 1 week. I answered all of her questions. To call sooner or go to the emergency room if her clinical appearance worsens or if she develops systemic signs of illness. Her foot is stable at this time. She is at risk for amputation and limb loss and systemic illness due to her comorbidities. She will follow up in two weeks when she returns from out of town abdominal pain work up. Note: [employer] speech recognition technology infusion specialist software was used to create portions of this document. Sound-alike and misspelled words, as well as other technology infusion specialist errors may be contained in the documentation.
[2022-01-17 09:45] VITALS: BP 171/66; PULSE 83; RESP 20; TEMP 36.4
--- NOTE | 2022-01-17 10:25 | PN.PCM_ITS ---
History of Present Illness Date of Service: 01/17/22 Chief Complaint: Left foot History of Wound: This is 76-year-old female with diabetic neuropathy history of Charcot left foot with rocker-bottom deformity, coronary artery disease and other comorbidities has a recurrent ulcer. She has had delayed healing of her plantar foot ulcer secondary to rocker-bottom Charcot foot deformity, recurrent ulcers and infections. She completed left lower extremity vascular surgery intervention procedure and had this successfully completed at [facility] with Dr. Pang. He denies fever, chill, nausea, vomiting, calf pain, or diarrhea. She is currently being treated with medications for her abdominal pain and has completed her antibiotics for her recent diagnosis of bilateral pneumonia. She has been feeling better and has been able to offload and keep pressure off of her foot in a more compliant manner. Progress of Wound: Improving Objective Data Objective Data Vital Signs: Vital Signs Temp Pulse Resp BP 97.5 F L 83 20 H 171/66 H 01/17/22 09:45 01/17/22 09:45 01/17/22 09:45 01/17/22 09:45 Physical Exam Narrative Left foot: Chopart amputation plantar central foot ulcer has no direct probe to bone, necrosis, odor, erythema, or purulence noted. reduced depth noted. There is no cellulitis, no fluctuance or bogginess to the left foot. Negative Claudio and Elizondo sign left. Compartments remain soft to palpate left lower extremity. DP 2/4, left. deep probing noted. ulcer bed with granular base. with blister resolved. this is a cluster wound now with additional granular base exposure medial to initial wound- decreased size noted Debridement Note Debridement Note Wound debrided: left foot Wound Grade/Stage: 2 Type of Debridement: Excisional debridement Anesthesia Used: 4% Lidocaine Solution Depth: in the subcutaneous layer Percentage of wound debrided: 100 Instrument Used: #15 blade Tissue Removed: fibrous, devitalized subcutaneous, biofilm, slough Severity: Fat Layer Exposed Amount of bleeding with debridement: Mild Bleeding Controlled with: Pressure Patient tolerated procedure: Patient tolerated procedure well Post-Debridement Measurements and Additional Note: Post-Debridement Measurements/Treatment AMINAH - Nurse 1 - General Ulcer Assessment Start: 01/10/22 09:50 Freq: Status: Active Protocol: EUGENE Activity Type Activity Date Activity User E-sign Co-sign Detail Recorded Client Recorded Date Recorded By Document 01/10/22 09:50 RB Desktop 01/10/22 09:54 RB Document 01/17/22 09:45 [facility] [id number] 01/17/22 09:52 [facility] 01/10/22 01/17/22 09:50 09:45 - Today's Visit Information Type of service Follow-up Visit Follow-up Visit (Physician/LICENSED NURSE PRACTITIONER (Physician/LICENSED NURSE PRACTITIONER ) ) Arrival Mode Wheelchair Ambulatory Transfer Assistance None None Patient Identification Verified (Name & Yes Yes ) Patient Requires Transmission-Based No No Precautions Vital Signs Temperature (97.8 F-99.1 F) 97.2 F L 97.5 F L Temperature Source Temporal Temporal Pulse Rate (60-100) 75 83 Pulse Location Monitor Monitor Respiratory Rate (12-18) 18 20 H Respiratory rate source Observation Observation Blood Pressure (90/60-120/80) 159/74 H 171/66 H Blood Pressure Mean (mm Hg) 102 101 Source Monitor Monitor Position Semi-Fowlers Blood Pressure Location Left Arm History Since Last Visit- (Skip if this is Patient's initial visit) Have you changed medications since your No No last visit? Any new allergies or adverse reactions No No Had a fall/change in ADL's that may No No increase risk of falls Signs or symptoms of abuse and/or No No neglect since last visit Have you been in the hospital since your No No last visit? Has dressing in place as prescribed Yes Yes Has compression in place as prescribed No N/A Has offloadiing in place as prescribed No Yes Experienced any changes in pain level or No No management Left Footwear No Footwear Pain Scale: 0-10 Numeric Is Patient Pain Free? Yes Yes - Nurse 1 - General Ulcer Measurement Start: 01/10/22 09:50 Freq: Status: Active Protocol: Activity Type Activity Date Activity User E-sign Co-sign Detail Recorded Client Recorded Date Recorded By Document 01/10/22 09:50 Desktop 01/10/22 09:54 Document 01/17/22 09:45 [facility] [id number] 01/17/22 09:52 [facility] 01/10/22 01/17/22 09:50 09:45 Wound Center Nurse 1 10. L plantar cluster -Combined with other wound No -Current Size (cm) - Length 0.9 1.1 -Current Size (cm) - Width 1.3 2.7 -Current Size (cm) - Depth 0.2 0.2 -Total Square Cm 1.17 2.97 -Photo Taken Yes Yes -Tunneling No -Undermining/Tunneling No -Circular Undermining No -Exudate Amt Medium Small -Exudate Type Serosanguineous Serous -Wound Margin Thickened Distinct, Outline Attached -Granulation Amt Medium (34-66%) Large (67-100%) -Granulation Quality [place] -Slough/Fibrin Yes -Necrosis Amt None Present (0 Small (1-33%) %) -Necrotic Tissue Type Adherent Slough Adherent Slough -Structure Exposed Fat Layer N/A Exposed -Texture (Shannon-wound Skin Appearance) Callus Scarring -Moisture (Shannon-wound Skin Appearance) Assessed Dry/Scaly -Color (Shannon-wound Skin Appearance) Assessed No Abnormality -Temperature (Shannon-wound Skin No Abnormality No Abnormality Appearance) (Pt Warm) (Pt Warm) -Tenderness on Palpation (Shannon-wound No Skin Appearance) -Ulcer Cleansing Wound Cleanser Soap and Water -Foul Odor after Cleansing No No -Anesthetic Used 5% Lidocaine 5% Lidocaine Gel Gel WC - Nurse 2 - General Ulcer CM Notes Start: 01/10/22 09:50 Freq: Status: Active Protocol: Activity Type Activity Date Activity User E-sign Co-sign Detail Recorded Client Recorded Date Recorded By Document 01/10/22 10:10 [id number] 01/10/22 10:12 Document 01/17/22 10:06 [id number] 01/17/22 10:08 01/10/22 01/17/22 10:10 10:06 Wound Center Nurse 2 10. L plantar cluster -Time 10:10 10:06 -Correct Patient Yes Yes -Correct Side, Site, Position Yes Yes -Correct Procedure Yes Yes -Procedure Performed Yes Yes -Type of Procedure Debridement Debridement -Clinical Debridement Subcutaneous Subcutaneous -Tissue Removed Subcutaneous Subcutaneous -Post Debridement (cm) - Length 1 2.4 -Post Debridement (cm) - Width 2.9 0.6 -Post Debridement (cm) - Depth 0.2 0.2 -Total Square (Post) (cm) 2.9 1.44 -Area of Debridement (cm) - Length 1.0 2.4 -Area of Debridement (cm) - Width 2.9 0.6 -Total Square (Area) (cm) 2.90 1.44 -Tunneling No No -Undermining/Tunneling No No -Circular Undermining No No -Wound/Ulcer Outcome Not Healed Not Healed -Ulcer Cleansing Rinsed/ Rinsed/ Irrigated with Irrigated with Saline Saline -Foul Odor after Cleansing No No -Bioengineered Tissue No No -Bleeding Controlled with Pressure Pressure -Treatment Response Procedure Procedure Tolerated Well Tolerated Well -Offloading Yes No -Type of Offloading Surgical Shoe -Assistive Device(s) Wheelchair Wheelchair -Debridement - Subq, 1st 20sq cm Yes Yes Pain Scale: 0-10 Numeric Is Patient Pain Free? Yes Yes - Nurse 3 - General Ulcer D/C NN Start: 01/10/22 09:50 Freq: Status: Active Protocol: Activity Type Activity Date Activity User E-sign Co-sign Detail Recorded Client Recorded Date Recorded By Document 01/10/22 10:24 [id number] 01/10/22 10:25 RB Document 01/17/22 10:16 RB [id number] 01/17/22 10:17 RB 01/10/22 01/17/22 10:24 10:16 Wound Care Nurse 3 10. L plantar cluster -Ulcer Cleansing Rinsed/ Rinsed/ Irrigated with Irrigated with Saline Saline -Primary Dressing Applied Aquacel AG 2x2 Aquacel AG 4x4 -Other Dressing bprdered adhesive [place]- sap -Primary Dressing Covered/Secured with Dry Gauze,Dry Gauze & Roll Gauze,Secured with Tape -Aquacel AG 4x4 1 -Aquacel AG 2x2 1 Left -Tubular Bandage Single Layer Single Layer -Size of Tubigrip Used Size D Size D -Size D ($) 1 1 Treatment Response Procedure Procedure Tolerated Well Tolerated Well Pain Scale: 0-10 Numeric Is Patient Pain Free? Yes Yes - Visit Discharge Discharge Condition Stable Stable Ambulatory Status Wheelchair Wheelchair Transportation Private Auto Private Auto Medication Reconcilliation completed & No No provided to patient/care provider Clinical Summary of Care Provided Yes Yes Assessment/Plan Assessment/Plan (1) Delayed wound healing: CODE(S): T14.8XXD - Other injury of unspecified body region, subsequent encounter (2) Charcot's joint of left foot: CODE(S): M14.672 - Charcot's joint, left ankle and foot (3) Type 2 diabetes mellitus with diabetic polyneuropathy: CODE(S): E11.42 - Type 2 diabetes mellitus with diabetic polyneuropathy QUALIFIERS: Diabetes mellitus residential insulin use: with residential use Qualified Code(s): E11.42 - Type 2 diabetes mellitus with diabetic polyneuropathy; Z79.4 - intermediate (current) use of insulin (4) Chronic ulcer of left foot with fat layer exposed: CODE(S): L97.522 - Non-pressure chronic ulcer of other part of left foot with fat layer exposed PLAN: Plan I reviewed and discussed her case. Debridement was performed as noted in the clinical nursing panel. She is reassured no local signs of infection are noted. She completed a full course of advanced wound healing product application, epi fix. To wash daily with antibacterial soap and water. To change dressing daily with aquacell ag. Vascular surgery intervention was performed successfully at [facility] recently with Dr. Pang w/ antioplasty at femoral through adductor into popliteal (balloon). To maintain non weightbearing status with the use of assistive devices (knee roller/walker when able secondary to shoulder fracture) left lower extremity. To use wheelchair with the assistance of the help of her . She was advised to avoid direct contact and pressure on the footplate while seated or in her wheelchair. Imaging: X-rays were reviewed from prior emergency room visit in 07/2021. uPdated xrays ordered due to pain and I will call her with the results. To continue nutritional supplementation to optimize healing. She is taking Blue and has also been trying to eat more fresh foods. She is working on more detailed diet planning with her primary care physician. F/u wound care center 1 week. I answered all of her questions. To call sooner or go to the emergency room if her clinical appearance worsens or if she develops systemic signs of illness. Her foot is stable at this time. She is at risk for amputation and limb loss and systemic illness due to her comorbidities. Note: [employer] speech recognition agriculture scientist software was used to create portions of this document. Sound-alike and misspelled words, as well as other agriculture scientist errors may be contained in the documentation.
[2022-01-24 09:57] VITALS: BP 137/59; PULSE 73; RESP 18; TEMP 36.1
--- NOTE | 2022-01-24 10:37 | PN.PCM_ITS ---
History of Present Illness Date of Service: 01/24/22 Chief Complaint: Left foot History of Wound: This is 76-year-old female with diabetic neuropathy history of Charcot left foot with rocker-bottom deformity, coronary artery disease and other comorbidities has a recurrent ulcer. She has had delayed healing of her plantar foot ulcer secondary to rocker-bottom Charcot foot deformity, recurrent ulcers and infections. She completed left lower extremity vascular surgery intervention procedure and had this successfully completed at [facility] with Dr. Pang. He denies fever, chill, nausea, vomiting, calf pain, or diarrhea. She is currently being treated with medications for her abdominal pain and has completed her antibiotics for her recent diagnosis of bilateral pneumonia. She has been feeling better and has been able to offload and keep pressure off of her foot in a more compliant manner. She also complains of flareup of left ankle and foot discomfort. She denies redness, bruising or swelling. This is recently been exacerbated this past week. She denies increased activity. Progress of Wound: Improving ulcer Objective Data Objective Data Vital Signs: Vital Signs Temp Pulse Resp BP 97 F L 73 18 137/59 H 01/24/22 09:57 01/24/22 09:57 01/24/22 09:57 01/24/22 09:57 Physical Exam Narrative Left foot: Chopart amputation plantar central foot ulcer has no direct probe to bone, necrosis, odor, erythema, or purulence noted. reduced depth noted. There is no cellulitis, no fluctuance or bogginess to the left foot. Negative Claudio and Elizondo sign left. Compartments remain soft to palpate left lower extremity. DP 2/4, left. deep probing noted. ulcer bed with granular base. granular base - decreased size noted Pain with palpation to medial malleolus and medial hindfoot along the posterior tibial tendon. No laxity crepitus or pain with anterior drawer manipulation. No pain on palpation to lateral malleoli or anterior joint line. No pain with heel compression. No pain on palpation to the remaining midfoot bones. The compartments remain soft and there is no skin tenting. Debridement Note Debridement Note Wound debrided: left foot Wound Grade/Stage: 2 Type of Debridement: Excisional debridement Anesthesia Used: 4% Lidocaine Solution Depth: in the subcutaneous layer Percentage of wound debrided: 100 Instrument Used: #15 blade Tissue Removed: fibrous, devitalized subcutaneous, biofilm, slough Severity: Fat Layer Exposed Amount of bleeding with debridement: Mild Bleeding Controlled with: Pressure Patient tolerated procedure: Patient tolerated procedure well Post-Debridement Measurements and Additional Note: Post-Debridement Measurements/Treatment - Nurse 1 - General Ulcer Assessment Start: 01/10/22 09:50 Freq: Status: Active Protocol: LOWOSBALDOT Activity Type Activity Date Activity User E-sign Co-sign Detail Recorded Client Recorded Date Recorded By Document 01/10/22 09:50 RB Desktop 01/10/22 09:54 RB Document 01/17/22 09:45 [facility] [id number] 01/17/22 09:52 BMF Document 01/24/22 09:57 RB [id number] 01/24/22 10:03 RB 01/10/22 01/17/22 01/24/22 09:50 09:45 09:57 - Today's Visit Information Type of service Follow-up Visit Follow-up Visit Follow-up Visit (Physician/STRING STUDIES DIRECTOR (Physician/STRING STUDIES DIRECTOR (Physician/STRING STUDIES DIRECTOR ) ) ) Arrival Mode Wheelchair Ambulatory Wheelchair Transfer Assistance None None Manual Patient Identification Verified (Name & Yes Yes Yes ) Patient Requires Transmission-Based No No Precautions Finger Stick Blood Sugar(mg/dl) (if 101 indicated): Vital Signs Temperature (97.8 F-99.1 F) 97.2 F L 97.5 F L 97 F L Temperature Source Temporal Temporal Temporal Pulse Rate (60-100) 75 83 73 Pulse Location Monitor Monitor Monitor Respiratory Rate (12-18) 18 20 H 18 Respiratory rate source Observation Observation Observation Blood Pressure (90/60-120/80) 159/74 H 171/66 H 137/59 H Blood Pressure Mean (mm Hg) 102 101 85 Source Monitor Monitor Monitor Position Semi-Fowlers Semi-Fowlers Blood Pressure Location Left Arm Left Arm History Since Last Visit- (Skip if this is Patient's initial visit) Have you changed medications since your No No No last visit? Any new allergies or adverse reactions No No No Had a fall/change in ADL's that may No No No increase risk of falls Signs or symptoms of abuse and/or No No No neglect since last visit Have you been in the hospital since your No No No last visit? Has dressing in place as prescribed Yes Yes Yes Has compression in place as prescribed No N/A No Has offloadiing in place as prescribed No Yes No Experienced any changes in pain level or No No No management Left Footwear No Footwear No Footwear Right Footwear No Footwear Pain Scale: 0-10 Numeric Is Patient Pain Free? Yes Yes Yes WC - Nurse 1 - General Ulcer Measurement Start: 01/10/22 09:50 Freq: Status: Active Protocol: Activity Type Activity Date Activity User E-sign Co-sign Detail Recorded Client Recorded Date Recorded By Document 01/10/22 09:50 RB Desktop 01/10/22 09:54 RB Document 01/17/22 09:45 [facility] [id number] 01/17/22 09:52 BM Document 01/24/22 09:57 RB [id number] 01/24/22 10:03 RB 01/10/22 01/17/22 01/24/22 09:50 09:45 09:57 Wound Center Nurse 1 10. L plantar cluster -Combined with other wound No No -Current Size (cm) - Length 0.9 1.1 2 -Current Size (cm) - Width 1.3 2.7 0.5 -Current Size (cm) - Depth 0.2 0.2 0.4 -Total Square Cm 1.17 2.97 1.0 -Photo Taken Yes Yes Yes -Tunneling No No -Undermining/Tunneling No No -Circular Undermining No No -Exudate Amt Medium Small Medium -Exudate Type Serosanguineous Serous Serosanguineous -Wound Margin Thickened Distinct, Thickened Outline Attached -Granulation Amt Medium (34-66%) Large (67-100%) Medium (34-66%) -Granulation Quality [place] -Slough/Fibrin Yes Yes -Necrosis Amt None Present (0 Small (1-33%) Medium (34-66%) %) -Necrotic Tissue Type Adherent Slough Adherent Slough Adherent Slough -Structure Exposed Fat Layer N/A N/A Exposed -Texture (Shannon-wound Skin Appearance) Callus Scarring Assessed,Callus -Moisture (Shannon-wound Skin Appearance) Assessed Dry/Scaly Assessed -Color (Shannon-wound Skin Appearance) Assessed No Abnormality Assessed -Temperature (Shannon-wound Skin No Abnormality No Abnormality No Abnormality Appearance) (Pt Warm) (Pt Warm) (Pt Warm) -Tenderness on Palpation (Shannon-wound No No Skin Appearance) -Ulcer Cleansing Wound Cleanser Soap and Water Wound Cleanser -Foul Odor after Cleansing No No No -Anesthetic Used 5% Lidocaine 5% Lidocaine 5% Lidocaine Gel Gel Gel WC - Nurse 2 - General Ulcer CM Notes Start: 01/10/22 09:50 Freq: Status: Active Protocol: Activity Type Activity Date Activity User E-sign Co-sign Detail Recorded Client Recorded Date Recorded By Document 01/10/22 10:10 [id number] 01/10/22 10:12 Document 01/17/22 10:06 [id number] 01/17/22 10:08 Document 01/24/22 10:08 [id number] 01/24/22 10:10 01/10/22 01/17/22 01/24/22 10:10 10:06 10:08 Wound Center Nurse 2 10. L plantar cluster -Time 10:10 10:06 10:08 -Correct Patient Yes Yes Yes -Correct Side, Site, Position Yes Yes Yes -Correct Procedure Yes Yes Yes -Procedure Performed Yes Yes Yes -Type of Procedure Debridement Debridement Debridement -Clinical Debridement Subcutaneous Subcutaneous Subcutaneous -Tissue Removed Subcutaneous Subcutaneous Subcutaneous -Post Debridement (cm) - Length 1 2.4 0.6 -Post Debridement (cm) - Width 2.9 0.6 0.6 -Post Debridement (cm) - Depth 0.2 0.2 0.2 -Total Square (Post) (cm) 2.9 1.44 0.36 -Area of Debridement (cm) - Length 1.0 2.4 0.6 -Area of Debridement (cm) - Width 2.9 0.6 0.6 -Total Square (Area) (cm) 2.90 1.44 0.36 -Tunneling No No No -Undermining/Tunneling No No No -Circular Undermining No No No -Wound/Ulcer Outcome Not Healed Not Healed Not Healed -Ulcer Cleansing Rinsed/ Rinsed/ Rinsed/ Irrigated with Irrigated with Irrigated with Saline Saline Saline -Foul Odor after Cleansing No No No -Bioengineered Tissue No No No -Bleeding Controlled with Pressure Pressure Pressure -Treatment Response Procedure Procedure Procedure Tolerated Well Tolerated Well Tolerated Well -Offloading Yes No Yes -Type of Offloading Surgical Shoe Surgical Shoe -Assistive Device(s) Wheelchair Wheelchair -Debridement - Subq, 1st 20sq cm Yes Yes Yes Pain Scale: 0-10 Numeric Is Patient Pain Free? Yes Yes Yes - Nurse 3 - General Ulcer D/C NN Start: 01/10/22 09:50 Freq: Status: Active Protocol: Activity Type Activity Date Activity User E-sign Co-sign Detail Recorded Client Recorded Date Recorded By Document 01/10/22 10:24 RB [id number] 01/10/22 10:25 RB Document 01/17/22 10:16 RB [id number] 01/17/22 10:17 RB Document 01/24/22 10:18 [id number] 01/24/22 10:19 JF 01/10/22 01/17/22 01/24/22 10:24 10:16 10:18 Wound Care Nurse 3 10. L plantar cluster -Ulcer Cleansing Rinsed/ Rinsed/ Rinsed/ Irrigated with Irrigated with Irrigated with Saline Saline Saline -Foul Odor after Cleansing No -Primary Dressing Applied Aquacel AG 2x2 Aquacel AG 4x4 Aquacel AG 2x2 -Other Dressing bprdered Collins-SAP adhesive Collins- sap -Primary Dressing Covered/Secured with Dry Gauze,Dry Gauze & Roll Gauze,Secured with Tape -Aquacel AG 4x4 1 -Aquacel AG 2x2 1 1 Left -Tubular Bandage Single Layer Single Layer -Size of Tubigrip Used Size D Size D -Size D ($) 1 1 Treatment Response Procedure Procedure Tolerated Well Tolerated Well Pain Scale: 0-10 Numeric Is Patient Pain Free? Yes Yes Yes - Visit Discharge Discharge Condition Stable Stable Stable Ambulatory Status Wheelchair Wheelchair Wheelchair Transportation Private Auto Private Auto Private Auto Medication Reconcilliation completed & No No Yes provided to patient/care provider Clinical Summary of Care Provided Yes Yes Yes Assessment/Plan Assessment/Plan (1) Delayed wound healing: CODE(S): T14.8XXD - Other injury of unspecified body region, subsequent encounter (2) Charcot's joint of left foot: CODE(S): M14.672 - Charcot's joint, left ankle and foot (3) Type 2 diabetes mellitus with diabetic polyneuropathy: CODE(S): E11.42 - Type 2 diabetes mellitus with diabetic polyneuropathy QUALIFIERS: Diabetes mellitus long-term insulin use: with long chain quiller tender use Qualified Code(s): E11.42 - Type 2 diabetes mellitus with diabetic polyneuropathy; Z79.4 - oil heaterman (current) use of insulin (4) Chronic ulcer of left foot with fat layer exposed: CODE(S): L97.522 - Non-pressure chronic ulcer of other part of left foot with fat layer exposed (5) Pain in left ankle and joints of left foot: CODE(S): M25.572 - Pain in left ankle and joints of left foot PLAN: Plan I reviewed and discussed her case. Debridement was performed as noted in the clinical nursing panel. She is reassured no local signs of infection are noted. She completed a full course of advanced wound healing product application, epi fix. To wash daily with antibacterial soap and water. To change dressing daily with [employer] ag. Vascular surgery intervention was performed successfully at [facility] recently with Dr. Pang w/ antioplasty at femoral through adductor into popliteal (balloon). To maintain non weightbearing status with the use of assistive devices (knee roller/walker when able secondary to shoulder fracture) left lower extremity. To use wheelchair with the assistance of the help of her . She was advised to avoid direct contact and pressure on the footplate while seated or in her wheelchair. Imaging: X-rays were reviewed from prior emergency room visit in 07/2021. Updated xrays ordered 01/24/22 due to pain and I will review results upon completion. To continue nutritional supplementation to optimize healing. She is taking Blue and has also been trying to eat more fresh foods. She is working on more detailed diet planning with her primary care physician. F/u wound care center 1 week. I answered all of her questions. To call sooner or go to the emergency room if her clinical appearance worsens or if she develops systemic signs of illness. Her foot is stable at this time. She is at risk for amputation and limb loss and systemic illness due to her comorbidities. Note: [employer] speech recognition mammography technician software was used to create portions of this document. Sound-alike and misspelled words, as well as other mammography technician errors may be contained in the documentation. The medical decision making level is limited based on data including the review of prior external notes, review of a prior test, or ordering a test. The medical decision making level is low. There is noted low risk of morbidity after considering this treatment plan and diagnostic data.
--- NOTE | 2022-01-24 10:45 | RAD_ITS ---
STUDY: X-RAY - LEFT ANKLE REASON FOR EXAM: Female, 76 years old. FOOT ULCER TECHNIQUE: 3 view(s) of the ankle. COMPARISON: Comparison is made with prior examination dated 11/01/2021. FINDINGS: Normal visualized distal tibia and fibula. Normal medial and lateral malleoli. Normal tibiotalar articulation and ankle mortise. Once again, the patient is status post mid and hindfoot amputation. Soft tissue swelling. RAD/Ankle min 3 Views IMPRESSION: Diffuse soft tissue swelling. Status post proximal foot amputation. Electronically Signed: Delvin Morton MD at 11:12 EDT ,
== END 2022-01-24 23:59 | disposition home or self-care (01) ==
LOC: WC 09:45
PROVIDERS: PCP Family Medicine; Referring Provider Podiatrist; Visit Provider Podiatrist
DX: E11.621 Type 2 diabetes mellitus with foot ulcer (principal); L97.522 Non-pressure chronic ulcer of other part of left foot with fat layer exposed; E11.42 Type 2 diabetes mellitus with diabetic polyneuropathy; E11.610 Type 2 diabetes mellitus with diabetic neuropathic arthropathy; Z79.4 Long term (current) use of insulin; M25.572 Pain in left ankle and joints of left foot; I25.10 Atherosclerotic heart disease of native coronary artery without angina pectoris; Z79.82 Long term (current) use of aspirin; Z79.02 Long term (current) use of antithrombotics/antiplatelets; Z79.890 Hormone replacement therapy; Z79.899 Other long term (current) drug therapy
CPT/HCPCS: 11042; 73610

== ENCOUNTER 2022-02-21 10:30 | Outpatient (RCR) | payer MEDICARE, OTHER, SELFPAY ==
[2022-01-25 00:30] VITALS: BP 137/59; PULSE 73; RESP 18; TEMP 36.1
[2022-02-14 09:57] VITALS: BP 113/68; PULSE 74; RESP 18; TEMP 36.1
--- NOTE | 2022-02-14 12:49 | PCM.WC.PN ---
History of Present Illness Date of Service: 02/14/22 Chief Complaint: Left foot plantar ulcer History of Wound: This is 76-year-old female with diabetic neuropathy history of Charcot left foot with rocker-bottom deformity, coronary artery disease and other comorbidities has a recurrent ulcer. She has had delayed healing of her plantar foot ulcer secondary to rocker-bottom Charcot foot deformity, recurrent ulcers and infections. She completed left lower extremity vascular surgery intervention procedure and had this successfully completed at [facility] with Dr. Pang. He denies fever, chill, nausea, vomiting, calf pain, or diarrhea. She is currently being treated with medications for her abdominal pain and has completed her antibiotics for her recent diagnosis of bilateral pneumonia. She has been feeling better and has been able to offload and keep pressure off of her foot in a more compliant manner. She also complains of flareup of left ankle and foot discomfort. She denies redness, bruising or swelling. This is recently been exacerbated over the few weeks. She denies increased activity. Xray of left ankle on 01/24/22 showed Normal visualized distal tibia and fibula. Normal medial and lateral malleoli. Normal tibiotalar articulation and ankle mortise. S/p mid and hindfoot amuption. Soft tissue swelling. Progress of Wound: Left plantar ulcer on midfoot with thick, callus area surrounding it . The center of the ulcer is beefy pink with some depth. Objective Data Objective Data Vital Signs: Vital Signs Temp Pulse Resp BP 97 F L 74 18 113/68 02/14/22 09:57 02/14/22 09:57 02/14/22 09:57 02/14/22 09:57 Charges/Coding Procedures Integumentary 111xxx-113xx: 20429 Jolynn subq tissue 20 sq cm/< Physical Exam Const alert, oriented x3 and no apparent distress HEENT normocephalic Resp normal respiratory effort Effort and Inspection: able to speak in complete sentences Cardio regular rate Extremity normal capillary refill Skin Wound Narrative: Left plantar central foot ulcer with large amount of callus surrounding the ulcer. The center of the ulcer is a nice beefy pink, but does have some depth. Neuro oriented x3 Sensorium / Orientation: awake Psych affect normal Appearance: well kempt Debridement Note Debridement Note Wound debrided: plantar midfoot ulcer Laterality: Left Type of Debridement: Excisional debridement Anesthesia Used: 5% Lidocaine Gel Depth: Down to and including healthy tissue and in the subcutaneous layer Percentage of wound debrided: 100 Instrument Used: 3mm curette and #15 blade Tissue Removed: devitalized tissue and slough Severity: Fat Layer Exposed Amount of bleeding with debridement: Mild Bleeding Controlled with: Pressure Patient tolerated procedure: Patient tolerated procedure well Debridement Free Text: Used #15 blade to thickened callus surrounding the ulcer. #3 curette was used on the ulcer Post-Debridement Measurements and Additional Note: Post-Debridement Measurements/Treatment WC - Nurse 1 - General Ulcer Assessment Start: 02/14/22 09:57 Freq: Status: Active Protocol: EUGENE Activity Type Activity Date Activity User E-sign Co-sign Detail Recorded Client Recorded Date Recorded By Document 02/14/22 09:57 MANE [id number] 02/14/22 09:59 RB 02/14/22 09:57 WC - Today's Visit Information Type of service Follow-up Visit (Physician/CONSTRUCTION SKILLS TEACHER ) Arrival Mode Wheelchair Transfer Assistance Manual Patient Identification Verified (Name & Yes ) Patient Requires Transmission-Based No Precautions Finger Stick Blood Sugar(mg/dl) (if 121 indicated): Blood Sugar Stated by Patient Vital Signs Temperature (97.8 F-99.1 F) 97 F L Temperature Source Temporal Pulse Rate (60-100) 74 Pulse Location Monitor Respiratory Rate (12-18) 18 Respiratory rate source Observation Blood Pressure (90/60-120/80) 113/68 Blood Pressure Mean (mm Hg) 83 Source Monitor Position Semi-Fowlers Blood Pressure Location Left Arm History Since Last Visit- (Skip if this is Patient's initial visit) Have you changed medications since your No last visit? Any new allergies or adverse reactions No Had a fall/change in ADL's that may No increase risk of falls Signs or symptoms of abuse and/or No neglect since last visit Have you been in the hospital since your No last visit? Has dressing in place as prescribed Yes Has compression in place as prescribed No Has offloadiing in place as prescribed Yes Experienced any changes in pain level or No management Pain Scale: 0-10 Numeric Is Patient Pain Free? Yes AMINAH - Nurse 1 - General Ulcer Measurement Start: 02/14/22 09:57 Freq: Status: Active Protocol: Activity Type Activity Date Activity User E-sign Co-sign Detail Recorded Client Recorded Date Recorded By Document 02/14/22 09:57 RB [id number] 02/14/22 09:59 RB 02/14/22 09:57 Wound Center Nurse 1 10. L plantar cluster -Combined with other wound No -Current Size (cm) - Length 0.4 -Current Size (cm) - Width 0.4 -Current Size (cm) - Depth 0.5 -Total Square Cm 0.16 -Undermining/Tunneling Yes -Undermining/Tunneling Starts (O'clock 12 ) -Undermining/Tunneling Ends (O'clock) 12 -Maximum Distance (cm) 0.3 -Circular Undermining Yes -Exudate Amt Medium -Exudate Type Serosanguineous -Wound Margin Distinct, Outline Attached -Granulation Amt Medium (34-66%) -Granulation Quality [place] -Slough/Fibrin Yes -Necrosis Amt Small (1-33%) -Necrotic Tissue Type Adherent Slough -Structure Exposed N/A -Texture (Shannon-wound Skin Appearance) Callus -Moisture (Shannon-wound Skin Appearance) Assessed -Color (Shannon-wound Skin Appearance) Assessed -Temperature (Shannon-wound Skin No Abnormality Appearance) (Pt Warm) -Tenderness on Palpation (Shannon-wound No Skin Appearance) -Ulcer Cleansing Rinsed/ Irrigated with Saline -Foul Odor after Cleansing No -Anesthetic Used 5% Lidocaine Gel WC - Nurse 2 - General Ulcer CM Notes Start: 02/14/22 09:57 Freq: Status: Active Protocol: Activity Type Activity Date Activity User E-sign Co-sign Detail Recorded Client Recorded Date Recorded By Document 02/14/22 10:04 EULOGIO [id number] 02/14/22 10:14 EULOGIO 02/14/22 10:04 Wound Center Nurse 2 -Time 10:04 -Correct Patient Yes -Correct Side, Site, Position Yes -Correct Procedure Yes -Procedure Performed Yes -Type of Procedure Debridement -Clinical Debridement Subcutaneous -Tissue Removed Subcutaneous -Post Debridement (cm) - Length 1.0 -Post Debridement (cm) - Width 1.0 -Post Debridement (cm) - Depth 1.1 -Total Square (Post) (cm) 1.00 -Area of Debridement (cm) - Length 1.0 -Area of Debridement (cm) - Width 1.0 -Total Square (Area) (cm) 1.00 -Tunneling No -Undermining/Tunneling No -Circular Undermining No -Wound/Ulcer Outcome Not Healed -Ulcer Cleansing Rinsed/ Irrigated with Saline -Foul Odor after Cleansing No -Bioengineered Tissue No -Bleeding Controlled with Pressure -Treatment Response Procedure Tolerated Well -Offloading No -Assistive Device(s) Wheelchair -Debridement - Subq, 1st 20sq cm Yes Pain Scale: 0-10 Numeric Is Patient Pain Free? Yes - Nurse 3 - General Ulcer D/C NN Start: 02/14/22 09:57 Freq: Status: Active Protocol: Activity Type Activity Date Activity User E-sign Co-sign Detail Recorded Client Recorded Date Recorded By Document 02/14/22 10:51 RB [id number] 02/14/22 10:52 RB 02/14/22 10:51 Wound Care Nurse 3 10. L plantar cluster -Primary Dressing Applied Aquacel AG 2x2, Mepilex Border -Aquacel AG 2x2 1 -Mepilex Border 1 Treatment Response Procedure Tolerated Well Pain Scale: 0-10 Numeric Is Patient Pain Free? Yes - Visit Discharge Discharge Condition Stable Ambulatory Status Wheelchair Transportation Private Auto Medication Reconcilliation completed & No provided to patient/care provider Clinical Summary of Care Provided Yes Assessment/Plan Assessment/Plan (1) Delayed wound healing: CODE(S): T14.8XXD - Other injury of unspecified body region, subsequent encounter (2) Charcot's joint of left foot: CODE(S): M14.672 - Charcot's joint, left ankle and foot (3) Type 2 diabetes mellitus with diabetic polyneuropathy: CODE(S): E11.42 - Type 2 diabetes mellitus with diabetic polyneuropathy QUALIFIERS: Diabetes mellitus long term care pharmacist insulin use: with long term care pharmacist use Qualified Code(s): E11.42 - Type 2 diabetes mellitus with diabetic polyneuropathy; Z79.4 - MCFP (current) use of insulin (4) Chronic ulcer of left foot with fat layer exposed: CODE(S): L97.522 - Non-pressure chronic ulcer of other part of left foot with fat layer exposed (5) Pain in left ankle and joints of left foot: CODE(S): M25.572 - Pain in left ankle and joints of left foot PLAN: Plan Patient was evaluated at the wound center. Subcutaneous debridement was performed as documented. She had been being seen by Dr. Magana. She completed a full course of advanced wound healing product application, epi fix. Vascular surgery intervention was performed successfully at [facility] recently with Dr. Pang w/ antioplasty at femoral through adductor into popliteal (balloon). Wound care - Aquacel-Ag placed into the base of the ulcer and cover with [place] SAP dressing daily after washing with soap and water. To maintain non weightbearing status with the use of assistive devices (knee roller/walker when able secondary to shoulder fracture) left lower extremity. To use wheelchair with the assistance of the help of her . She was advised to avoid direct contact and pressure on the footplate while seated or in her wheelchair. To continue nutritional supplementation to optimize healing. She is taking Blue and has also been trying to eat more fresh foods. She is working on more detailed diet planning with her primary care physician. Follow up at wound care center 1 week. To call sooner or go to the emergency room if her clinical appearance worsens or if she develops systemic signs of illness. Her foot is stable at this time. She is at risk for amputation and limb loss and systemic illness due to her comorbidities.
[2022-02-21 10:36] VITALS: BP 142/54; PULSE 75; RESP 16; TEMP 36
--- NOTE | 2022-02-21 12:47 | PCM.WC.PN ---
History of Present Illness Date of Service: 02/21/22 Chief Complaint: Left foot plantar ulcer History of Wound: This is 76-year-old female with diabetic neuropathy history of Charcot left foot with rocker-bottom deformity, coronary artery disease and other comorbidities has a recurrent ulcer. She has had delayed healing of her plantar foot ulcer secondary to rocker-bottom Charcot foot deformity, recurrent ulcers and infections. She completed left lower extremity vascular surgery intervention procedure and had this successfully completed at [facility] with Dr. Pang. He denies fever, chill, nausea, vomiting, calf pain, or diarrhea. She is currently being treated with medications for her abdominal pain and has completed her antibiotics for her recent diagnosis of bilateral pneumonia. She has been feeling better and has been able to offload and keep pressure off of her foot in a more compliant manner. She also complains of flareup of left ankle and foot discomfort. She denies redness, bruising or swelling. This is recently been exacerbated over the few weeks. She denies increased activity. Xray of left ankle on 01/24/22 showed Normal visualized distal tibia and fibula. Normal medial and lateral malleoli. Normal tibiotalar articulation and ankle mortise. S/p mid and hindfoot amuption. Soft tissue swelling. Progress of Wound: Left plantar ulcer on midfoot with a new blister extending laterally onto foot. She started to wear her custom orthotic hoping that it would help prevent her ulcer from worsening. After wearing it one day, she developed a blister with increased drainage and odor. The center of the ulcer is beefy pink with some depth. Objective Data Objective Data Vital Signs: Vital Signs Temp Pulse Resp BP O2 Del Method 96.8 F L 75 16 142/54 H Room Air 02/21/22 10:36 02/21/22 10:36 02/21/22 10:36 02/21/22 10:36 02/21/22 10:36 Oxygen Delivery Method Room Air Charges/Coding Procedures Integumentary 111xxx-113xx: 60231 Jolynn subq tissue 20 sq cm/< Physical Exam Const alert, oriented x3 and no apparent distress HEENT normocephalic Lymph Lymphatic: no lymphedema noted Resp normal respiratory effort Effort and Inspection: able to speak in complete sentences Cardio regular rate Extremity normal capillary refill Skin Wound Narrative: Left plantar central foot ulcer that has new blistering extending to the lateral aspect of foot. There is an odor with an increase in drainage. The center of the ulcer is a nice beefy pink, but does have some depth. Neuro oriented x3 Sensorium / Orientation: awake Psych affect normal Appearance: well kempt Debridement Note Debridement Note Wound debrided: plantar midfoot ulcer Laterality: Left Type of Debridement: Excisional debridement Anesthesia Used: 5% Lidocaine Gel Depth: Down to and including healthy tissue and in the subcutaneous layer Percentage of wound debrided: 100 Instrument Used: 3mm curette and - (scissors and pick ups) Tissue Removed: devitalized tissue and slough Severity: Fat Layer Exposed Amount of bleeding with debridement: Mild Bleeding Controlled with: Pressure Patient tolerated procedure: Patient tolerated procedure well Debridement Free Text: Patient with increased blistering, odor and drainage from surrounding ulcer and extending to the lateral aspect of foot. Loose, blistered skin removed with scissors and pick ups. Post-Debridement Measurements and Additional Note: Post-Debridement Measurements/Treatment - Nurse 1 - General Ulcer Assessment Start: 02/14/22 09:57 Freq: Status: Active Protocol: EUGENE Activity Type Activity Date Activity User E-sign Co-sign Detail Recorded Client Recorded Date Recorded By Document 02/14/22 09:57 [id number] 02/14/22 09:59 RB Document 02/21/22 10:36 [facility] [id number] 02/21/22 10:50 [facility] 02/14/22 02/21/22 09:57 10:36 - Today's Visit Information Type of service Follow-up Visit Follow-up Visit (Physician/TELECOMMUNICATIONS CABLE JOINTER (Physician/TELECOMMUNICATIONS CABLE JOINTER ) ) Arrival Mode Wheelchair Wheelchair Transfer Assistance Manual Other Transfer Assist (Other) stand by Patient Identification Verified (Name & Yes Yes ) Patient Requires Transmission-Based No No Precautions Finger Stick Blood Sugar(mg/dl) (if 121 indicated): Blood Sugar Stated by Patient Vital Signs Temperature (97.8 F-99.1 F) 97 F L 96.8 F L Temperature Source Temporal Temporal Pulse Rate (60-100) 74 75 Pulse Location Monitor Monitor Respiratory Rate (12-18) 18 16 Respiratory rate source Observation Observation Oxygen Delivery Method Room Air Blood Pressure (90/60-120/80) 113/68 142/54 H Blood Pressure Mean (mm Hg) 83 83 Source Monitor Monitor Position Semi-Fowlers Sitting Blood Pressure Location Left Arm Left Arm History Since Last Visit- (Skip if this is Patient's initial visit) Have you changed medications since your No No last visit? Any new allergies or adverse reactions No No Had a fall/change in ADL's that may No No increase risk of falls Signs or symptoms of abuse and/or No No neglect since last visit Have you been in the hospital since your No No last visit? Has dressing in place as prescribed Yes Yes Has compression in place as prescribed No N/A Has offloadiing in place as prescribed Yes Yes Experienced any changes in pain level or No No management Left Footwear Other Footwear (Comment) Right Footwear Other Footwear (Comment) Other Footwear socks Pain Scale: 0-10 Numeric Is Patient Pain Free? Yes Yes WC - Nurse 1 - General Ulcer Measurement Start: 02/14/22 09:57 Freq: Status: Active Protocol: Activity Type Activity Date Activity User E-sign Co-sign Detail Recorded Client Recorded Date Recorded By Document 02/14/22 09:57 [id number] 02/14/22 09:59 RB Document 02/21/22 10:36 [facility] [id number] 02/21/22 10:50 [facility] 02/14/22 02/21/22 09:57 10:36 Wound Center Nurse 1 10. L plantar cluster -Combined with other wound No No -Current Size (cm) - Length 0.4 1.8 -Current Size (cm) - Width 0.4 0.8 -Current Size (cm) - Depth 0.5 1.7 -Total Square Cm 0.16 1.44 -Date of Last Picture (Recall this 02/21/22 field) -Photo Taken Yes -Epithelialization None Present -Tunneling Yes -Tunneling Position (O'clock) 2 -Tunneling Distance (cm) 1.7 -Undermining/Tunneling Yes No -Undermining/Tunneling Starts (O'clock 12 ) -Undermining/Tunneling Ends (O'clock) 12 -Maximum Distance (cm) 0.3 -Circular Undermining Yes No -Exudate Amt Medium Large -Exudate Type Serosanguineous Yellow/Green -Wound Margin Distinct, Distinct, Outline Outline Attached Attached -Granulation Amt Medium (34-66%) Small (1-33%) -Granulation Quality [place] Red -Slough/Fibrin Yes Yes -Necrosis Amt Small (1-33%) Large (67-100%) -Necrotic Tissue Type Adherent Slough Adherent Slough -Structure Exposed N/A -Texture (Shannon-wound Skin Appearance) Callus Assessed,Callus ,Localized Edema,Scarring -Moisture (Shannon-wound Skin Appearance) Assessed Assessed, Maceration -Color (Shannon-wound Skin Appearance) Assessed Assessed, Erythema -Temperature (Shannon-wound Skin No Abnormality Hot Appearance) (Pt Warm) -Tenderness on Palpation (Shannon-wound No Yes Skin Appearance) -Ulcer Cleansing Rinsed/ Rinsed/ Irrigated with Irrigated with Saline Saline -Foul Odor after Cleansing No No -Anesthetic Used 5% Lidocaine 5% Lidocaine Gel Gel WC - Nurse 2 - General Ulcer CM Notes Start: 02/14/22 09:57 Freq: Status: Active Protocol: Activity Type Activity Date Activity User E-sign Co-sign Detail Recorded Client Recorded Date Recorded By Document 02/14/22 10:04 [id number] 02/14/22 10:14 Document 02/21/22 11:16 Desktop 02/21/22 11:26 02/14/22 02/21/22 10:04 11:16 Wound Center Nurse 2 10. L plantar cluster -Time 10:04 11:16 -Correct Patient Yes Yes -Correct Side, Site, Position Yes Yes -Correct Procedure Yes Yes -Procedure Performed Yes Yes -Type of Procedure Debridement Debridement -Clinical Debridement Subcutaneous Subcutaneous -Tissue Removed Subcutaneous Subcutaneous -Post Debridement (cm) - Length 1.0 1.5 -Post Debridement (cm) - Width 1.0 4.5 -Post Debridement (cm) - Depth 1.1 1.1 -Total Square (Post) (cm) 1.00 6.75 -Area of Debridement (cm) - Length 1.0 1.5 -Area of Debridement (cm) - Width 1.0 4.5 -Total Square (Area) (cm) 1.00 6.75 -Tunneling No No -Undermining/Tunneling No No -Circular Undermining No No -Wound/Ulcer Outcome Not Healed Not Healed -Ulcer Cleansing Rinsed/ Rinsed/ Irrigated with Irrigated with Saline Saline -Foul Odor after Cleansing No No -Bioengineered Tissue No No -Bleeding Controlled with Pressure Pressure -Treatment Response Procedure Procedure Tolerated Well Tolerated Well -Offloading No Yes -Type of Offloading Knee Walker -Assistive Device(s) Wheelchair -Debridement - Subq, 1st 20sq cm Yes Yes Pain Scale: 0-10 Numeric Is Patient Pain Free? Yes Yes - Nurse 3 - General Ulcer D/C NN Start: 02/14/22 09:57 Freq: Status: Active Protocol: Activity Type Activity Date Activity User E-sign Co-sign Detail Recorded Client Recorded Date Recorded By Document 02/14/22 10:51 RB [id number] 02/14/22 10:52 RB Document 02/21/22 11:35 [facility] [id number] 02/21/22 11:35 [facility] 02/14/22 02/21/22 10:51 11:35 Wound Care Nurse 3 10. L plantar cluster -Ulcer Cleansing Rinsed/ Irrigated with Saline -Foul Odor after Cleansing No -Primary Dressing Applied Aquacel AG 2x2, Aquacel AG 2x2, Mepilex Border Mepilex Border -Aquacel AG 2x2 1 1 -Mepilex Border 1 1 Treatment Response Procedure Procedure Tolerated Well Tolerated Well Pain Scale: 0-10 Numeric Is Patient Pain Free? Yes Yes WC - Visit Discharge Discharge Condition Stable Stable Ambulatory Status Wheelchair Wheelchair Transportation Private Auto Private Auto Medication Reconcilliation completed & No provided to patient/care provider Clinical Summary of Care Provided Yes Assessment/Plan Assessment/Plan (1) Delayed wound healing: CODE(S): T14.8XXD - Other injury of unspecified body region, subsequent encounter (2) Charcot's joint of left foot: CODE(S): M14.672 - Charcot's joint, left ankle and foot (3) Type 2 diabetes mellitus with diabetic polyneuropathy: CODE(S): E11.42 - Type 2 diabetes mellitus with diabetic polyneuropathy QUALIFIERS: Diabetes mellitus middle or intermediate school principal insulin use: with middle or intermediate school principal use Qualified Code(s): E11.42 - Type 2 diabetes mellitus with diabetic polyneuropathy; Z79.4 - intermediate manager (current) use of insulin (4) Chronic ulcer of left foot with fat layer exposed: CODE(S): L97.522 - Non-pressure chronic ulcer of other part of left foot with fat layer exposed (5) Pain in left ankle and joints of left foot: CODE(S): M25.572 - Pain in left ankle and joints of left foot PLAN: Plan Patient was evaluated at the wound center. Subcutaneous debridement was performed as documented. She had been being seen by Dr. Magana. She completed a full course of advanced wound healing product application, epi fix. Vascular surgery intervention was performed successfully at [facility] recently with Dr. Pang w/ angioplasty at femoral through adductor into popliteal (balloon). Wound care - Aquacel-Ag placed into the base of the ulcer and cover with Wheeler SAP dressing daily after washing with soap and water. Wound culture obtained today, 02/21/22, due to the increase in drainage, odor and pain. Depending on the results of the wound cultures, it may necessitate treatment with antibiotics. To maintain non weightbearing status with the use of assistive devices (knee roller/walker when able secondary to shoulder fracture) left lower extremity. To use wheelchair with the assistance of the help of her . She was advised to avoid direct contact and pressure on the footplate while seated or in her wheelchair. To continue nutritional supplementation to optimize healing. She is taking Blue and has also been trying to eat more fresh foods. She is working on more detailed diet planning with her primary care physician. Follow up at wound care center 1 week with one of the podiatrists at the wound center. To call sooner or go to the emergency room if her clinical appearance worsens or if she develops systemic signs of illness. Her foot is stable at this time. She is at risk for amputation and limb loss and systemic illness due to her comorbidities.
== END 2022-02-23 23:59 | disposition home or self-care (01) ==
LOC: WC 10:30
PROVIDERS: PCP Family Medicine; Referring Provider Podiatrist; Visit Provider Student in an Organized Health Care Education/Training Program
DX: E11.621 Type 2 diabetes mellitus with foot ulcer (principal); L97.422 Non-pressure chronic ulcer of left heel and midfoot with fat layer exposed; E11.42 Type 2 diabetes mellitus with diabetic polyneuropathy; E11.610 Type 2 diabetes mellitus with diabetic neuropathic arthropathy; Z79.4 Long term (current) use of insulin; I25.10 Atherosclerotic heart disease of native coronary artery without angina pectoris; M25.572 Pain in left ankle and joints of left foot; Z79.82 Long term (current) use of aspirin; Z79.02 Long term (current) use of antithrombotics/antiplatelets; Z79.890 Hormone replacement therapy; Z79.899 Other long term (current) drug therapy
CPT/HCPCS: 11042; 87070; 87075; 87077; 87186; 87205

== ENCOUNTER 2022-03-15 09:15 | Outpatient (RCR) | payer MEDICARE, OTHER, SELFPAY ==
[2022-02-24 01:20] VITALS: BP 142/54; PULSE 75; RESP 16; TEMP 36
[2022-03-01 09:59] VITALS: BP 175/59; PULSE 80; RESP 16; TEMP 35.5
--- NOTE | 2022-03-01 10:13 | PN.PCM_ITS ---
History of Present Illness Date of Service: 03/01/22 Chief Complaint: Left foot plantar ulcer History of Wound: This is 76-year-old female with diabetic neuropathy history of Charcot left foot with rocker-bottom deformity, coronary artery disease and other comorbidities has a recurrent ulcer. She has had delayed healing of her plantar foot ulcer secondary to rocker-bottom Charcot foot deformity, recurrent ulcers and infections. She completed left lower extremity vascular surgery intervention procedure and had this successfully completed at [facility] with Dr. Pang. He denies fever, chill, nausea, vomiting, calf pain, or diarrhea. She is currently being treated with medications for her abdominal pain and has completed her antibiotics for her recent diagnosis of bilateral pneumonia. She has been feeling better and has been able to offload and keep pressure off of her foot in a more compliant manner. She also complains of flareup of left ankle and foot discomfort. She denies redness, bruising or swelling. This is recently been exacerbated over the few weeks. She denies increased activity. Xray of left ankle on 01/24/22 showed Normal visualized distal tibia and fibula. Normal medial and lateral malleoli. Normal tibiotalar articulation and ankle mortise. S/p mid and hindfoot amuption. Soft tissue swelling. 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 She is follow-up in the wound care center today for plantar lateral ulceration to the left foot. She informs me that she has been placed on amoxicillin and is currently finishing this oral antibiotic. She denies any constitutional symptoms today. She has no further complaints today. Objective Data Objective Data Vital Signs: Vital Signs Temp Pulse Resp BP O2 Del Method 96 F L 80 16 175/59 H Room Air 03/01/22 09:59 03/01/22 09:59 03/01/22 09:59 03/01/22 09:59 03/01/22 09:59 Oxygen Delivery Method Room Air Physical Exam Narrative Left foot:? Chopart amputation plantar central foot ulcer has no direct probe to bone, necrosis,? odor, erythema, or purulence noted.? reduced depth noted.? There is no cellulitis, no fluctuance or bogginess to the left foot.? ? Negative Claudio and Elizondo sign left.? Compartments remain soft to palpate left lower extremity.? ? DP? 2/4, left. deep probing noted.? ulcer bed with granular base.? granular base - decreased size noted Pain with palpation to medial malleolus and medial hindfoot along the posterior tibial tendon.? No laxity crepitus or pain with anterior drawer manipulation.? No pain on palpation to lateral malleoli or anterior joint line.? No pain with heel compression.? No pain on palpation to the remaining midfoot bones.? The compartments remain soft and there is no skin tenting. Const alert, oriented x3 and no apparent distress Lymph Lymphatic: no lymphadenopathy noted and no lymphedema noted Resp normal respiratory effort Cardio regular rate and regular rhythm Extremity no joint enlargement and no calf tenderness Skin no rashes or lesions noted, skin turgor normal and no jaundice Wound Narrative: Plantar lateral ulceration to the Chopart amputation stump of the left lower extremity. There is slight maceration periwound. Ulceration demonstrates red, beefy, granular layer with serosanguineous drainage. Neuro moves all extremities Debridement Note Debridement Note Wound debrided: Left plantar Chopart stump ulceration Laterality: Left Wound Grade/Stage: Antonio stage II Type of Debridement: Excisional debridement Anesthesia Used: 5% Lidocaine Gel Depth: Down to and including healthy tissue and in the subcutaneous layer Percentage of wound debrided: 100 Instrument Used: 3mm curette Tissue Removed: Fibrous, devitalized subcutaneous, biofilm, slough Severity: Fat Layer Exposed Amount of bleeding with debridement: Mild Bleeding Controlled with: Compression and gauze Patient tolerated procedure: Patient tolerated procedure well Post-Debridement Measurements and Additional Note: Post-Debridement Measurements/Treatment - Nurse 1 - General Ulcer Assessment Start: 03/01/22 09:59 Freq: Status: Active Protocol: EUGENE Activity Type Activity Date Activity User E-sign Co-sign Detail Recorded Client Recorded Date Recorded By Document 03/01/22 09:59 AK [id number] 03/01/22 10:02 AK 03/01/22 09:59 - Today's Visit Information Type of service Follow-up Visit (Physician/BALL MILL OPERATOR ) Arrival Mode Wheelchair Patient Identification Verified (Name & Yes ) Patient Requires Transmission-Based Yes Precautions Safety Precautions Fall Prevention Vital Signs Temperature (97.8 F-99.1 F) 96 F L Temperature Source Temporal Pulse Rate (60-100) 80 Pulse Location Monitor Respiratory Rate (12-18) 16 Respiratory rate source Observation Oxygen Delivery Method Room Air Blood Pressure (90/60-120/80) 175/59 H Blood Pressure Mean (mm Hg) 97 Source Monitor Position Sitting Blood Pressure Location Left Arm Pain Scale: 0-10 Numeric Is Patient Pain Free? Yes WC - Nurse 1 - General Ulcer Measurement Start: 03/01/22 09:59 Freq: Status: Active Protocol: Activity Type Activity Date Activity User E-sign Co-sign Detail Recorded Client Recorded Date Recorded By Document 03/01/22 09:59 AK [id number] 03/01/22 10:02 AK 03/01/22 09:59 Wound Center Nurse 1 10. L plantar cluster -Current Size (cm) - Length 1.5 -Current Size (cm) - Width 1.5 -Current Size (cm) - Depth 1.1 -Total Square Cm 2.25 -Undermining/Tunneling Yes -Undermining/Tunneling Starts (O'clock 7 ) -Undermining/Tunneling Ends (O'clock) 9 -Maximum Distance (cm) 0.5 -Exudate Amt Small -Exudate Type Serosanguineous -Wound Margin Thickened & Rolled Under -Granulation Amt Medium (34-66%) -Granulation Quality Pale,[place] -Necrosis Amt Small (1-33%) -Necrotic Tissue Type Adherent Slough -Texture (Shannon-wound Skin Appearance) Assessed -Moisture (Shannon-wound Skin Appearance) Assessed, Maceration -Color (Shannon-wound Skin Appearance) Assessed -Temperature (Shannon-wound Skin No Abnormality Appearance) (Pt Warm) -Tenderness on Palpation (Shannon-wound No Skin Appearance) -Ulcer Cleansing Rinsed/ Irrigated with Saline -Foul Odor after Cleansing No -Anesthetic Used 5% Lidocaine Gel Lower Limb Edema Present NA Assessment/Plan Assessment/Plan (1) Pain in left ankle and joints of left foot: CODE(S): M25.572 - Pain in left ankle and joints of left foot (2) Blister (nonthermal), left foot, initial encounter: CODE(S): S90.822A - Blister (nonthermal), left foot, initial encounter (3) Chronic ulcer of left foot with necrosis of muscle: CODE(S): L97.523 - Non-pressure chronic ulcer of other part of left foot with necrosis of muscle (4) Chronic ulcer of left foot with fat layer exposed: CODE(S): L97.522 - Non-pressure chronic ulcer of other part of left foot with fat layer exposed (5) PAD (peripheral artery disease): CODE(S): I73.9 - Peripheral vascular disease, unspecified (6) Charcot's joint of left foot: CODE(S): M14.672 - Charcot's joint, left ankle and foot (7) Delayed wound healing: CODE(S): T14.8XXD - Other injury of unspecified body region, subsequent encounter PLAN: Plan Patient seen and evaluated Ulceration noted to the plantar aspect of her Chopart amputation stump. Ulceration underwent debridement as noted in clinical panel above. Ulcerative site measures 1.5 cm x 1.5 cm x 1.0 cm. There is localized rubor noted about the ulcerative rim with periwound maceration. Cultures were obtained by Reba Villagran NP and she was started on oral amoxicillin. I have instructed her to continue her oral antibiotic and finish it to completion. I will continue to monitor closely for progressing signs of infection She completed a full course of advanced wound healing product application, epi fix.? To continue to wash daily with antibacterial soap and water.? To change dressing daily Dakin's wet-to-dry dressing. ? Vascular surgery intervention was performed successfully at [facility] recently with Dr. Pang w/ antioplasty at femoral through adductor into popliteal (balloon). Offloading: To maintain non weightbearing status with the use of assistive devices (knee roller/walker when able secondary to shoulder fracture) left lower extremity. ? To use wheelchair with the assistance of the help of her . ? She was advised to avoid direct contact and pressure on the footplate while seated or in her wheelchair. I discussed offloading in her [place] walker boot however she states that this is caused blistering when she has worn this. I discussed that her [place] walker may need to be modified to prevent wounds from forming. Imaging: X-rays were reviewed from 01/24/22. No signs of osteomyelitis To continue nutritional supplementation to optimize healing.? She is taking Blue and has also been trying to eat more fresh foods.? She is working on more detailed diet planning with her primary care physician. F/u wound care center 1 week.? I answered all of her questions.? To call sooner or go to the emergency room if her clinical appearance worsens or if she develops systemic signs of illness.? Her foot is stable at this time. I discussed today that she is at risk for amputation and limb loss and systemic illness due to her comorbidities.? She informs me she is not a candidate for a BKA due to her heart condition. Note: [employer] speech recognition bias binding cutter software was used to create portions of this document. Sound-alike and misspelled words, as well as other bias binding cutter errors may be contained in the documentation.
[2022-03-08 11:02] VITALS: BP 133/61; PULSE 77; TEMP 36.2
--- NOTE | 2022-03-08 11:55 | PN.PCM_ITS ---
History of Present Illness Date of Service: 03/08/22 Chief Complaint: Left foot plantar ulcer History of Wound: This is 76-year-old female with diabetic neuropathy history of Charcot left foot with rocker-bottom deformity, coronary artery disease and other comorbidities has a recurrent ulcer. She has had delayed healing of her plantar foot ulcer secondary to rocker-bottom Charcot foot deformity, recurrent ulcers and infections. She completed left lower extremity vascular surgery intervention procedure and had this successfully completed at [facility] with Dr. Pang. He denies fever, chill, nausea, vomiting, calf pain, or diarrhea. She is currently being treated with medications for her abdominal pain and has completed her antibiotics for her recent diagnosis of bilateral pneumonia. She has been feeling better and has been able to offload and keep pressure off of her foot in a more compliant manner. She also complains of flareup of left ankle and foot discomfort. She denies redness, bruising or swelling. This is recently been exacerbated over the few weeks. She denies increased activity. Xray of left ankle on 01/24/22 showed Normal visualized distal tibia and fibula. Normal medial and lateral malleoli. Normal tibiotalar articulation and ankle mortise. S/p mid and hindfoot amuption. Soft tissue swelling. 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 She is follow-up in the wound care center today for plantar lateral ulceration to the left foot.? She informs me that she is continuing to take her amoxicillin and is currently finishing this oral antibiotic.? She denies any constitutional symptoms today.? She has no further complaints today. Objective Data Objective Data Vital Signs: Vital Signs Temp Pulse Resp BP O2 Del Method 97.2 F L 77 16 133/61 H Room Air 03/08/22 11:02 03/08/22 11:02 03/01/22 09:59 03/08/22 11:02 03/01/22 09:59 Oxygen Delivery Method Room Air Physical Exam Narrative Left foot:? Chopart amputation plantar central foot ulcer has no direct probe to bone, necrosis,?odor, erythema, or purulence noted.? Reduced depth noted.? There is no cellulitis, no fluctuance or bogginess to the left foot.?Negative Claudio and Elizondo sign left.? Compartments remain soft to palpate left lower extremity.?DP? 2/4, left. deep probing noted.? ulcer bed with granular base.? granular base - decreased size noted Pain with palpation to medial malleolus and medial hindfoot along the posterior tibial tendon.? No laxity crepitus or pain with anterior drawer manipulation.? No pain on palpation to lateral malleoli or anterior joint line.? No pain with h eel compression.? No pain on palpation to the remaining midfoot bones.? The compartments remain soft and there is no skin tenting. Const alert, oriented x3 and no apparent distress Lymph Lymphatic: no lymphadenopathy noted and no lymphedema noted Resp normal respiratory effort Cardio regular rate and regular rhythm Extremity no joint enlargement and no calf tenderness Skin no rashes or lesions noted, skin turgor normal and no jaundice Wound Narrative: Plantar lateral ulceration to the Chopart amputation stump of the left lower extremity. There is slight maceration periwound. Ulceration demonstrates red, beefy, granular layer with serosanguineous drainage. Neuro moves all extremities Debridement Note Debridement Note Wound debrided: Plantar Chopart stump Laterality: Left Wound Grade/Stage: Antonio stage II Type of Debridement: Excisional debridement Depth: Down to and including healthy tissue and in the subcutaneous layer Percentage of wound debrided: 100 Instrument Used: 3mm curette and - (313 blade) Tissue Removed: Fibrous, devitalized subcutaneous, biofilm, slough Severity: Fat Layer Exposed Amount of bleeding with debridement: Mild Bleeding Controlled with: Compression and gauze Patient tolerated procedure: Patient tolerated procedure well Post-Debridement Measurements and Additional Note: Post-Debridement Measurements/Treatment - Nurse 1 - General Ulcer Assessment Start: 03/01/22 09:59 Freq: Status: Active Protocol: AMINAH.EDGAR Activity Type Activity Date Activity User E-sign Co-sign Detail Recorded Client Recorded Date Recorded By Document 03/01/22 09:59 MI [id number] 03/01/22 10:02 MT Document 03/08/22 11:02 KR [id number] 03/08/22 11:04 KR 03/01/22 03/08/22 09:59 11:02 - Today's Visit Information Type of service Follow-up Visit Follow-up Visit (Physician/NUCLEAR PLANT TECHNICAL ADVISOR (Physician/NUCLEAR PLANT TECHNICAL ADVISOR ) ) Arrival Mode Wheelchair Wheelchair Patient Identification Verified (Name & Yes Yes ) Patient Requires Transmission-Based Yes Precautions Safety Precautions Fall Prevention Vital Signs Temperature (97.8 F-99.1 F) 96 F L 97.2 F L Temperature Source Temporal Temporal Pulse Rate (60-100) 80 77 Pulse Location Monitor Monitor Respiratory Rate (12-18) 16 Respiratory rate source Observation Oxygen Delivery Method Room Air Blood Pressure (90/60-120/80) 175/59 H 133/61 H Blood Pressure Mean (mm Hg) 97 85 Source Monitor Monitor Position Sitting Semi-Fowlers Blood Pressure Location Left Arm Left Arm History Since Last Visit- (Skip if this is Patient's initial visit) Have you changed medications since your No last visit? Any new allergies or adverse reactions No Had a fall/change in ADL's that may No increase risk of falls Signs or symptoms of abuse and/or No neglect since last visit Have you been in the hospital since your No last visit? Has dressing in place as prescribed Yes Has compression in place as prescribed N/A Has offloadiing in place as prescribed N/A Experienced any changes in pain level or No management Left Footwear No Footwear Right Footwear No Footwear Pain Scale: 0-10 Numeric Is Patient Pain Free? Yes Yes WC - Nurse 1 - General Ulcer Measurement Start: 03/01/22 09:59 Freq: Status: Active Protocol: Activity Type Activity Date Activity User E-sign Co-sign Detail Recorded Client Recorded Date Recorded By Document 03/01/22 09:59 MI [id number] 03/01/22 10:02 MT Document 03/08/22 11:02 [id number] 03/08/22 11:04 KR 03/01/22 03/08/22 09:59 11:02 Wound Center Nurse 1 10. L plantar cluster -Current Size (cm) - Length 1.5 1 -Current Size (cm) - Width 1.5 1.5 -Current Size (cm) - Depth 1.1 1.2 -Total Square Cm 2.25 1.5 -Undermining/Tunneling Yes -Undermining/Tunneling Starts (O'clock 7 ) -Undermining/Tunneling Ends (O'clock) 9 -Maximum Distance (cm) 0.5 -Exudate Amt Small Medium -Exudate Type Serosanguineous Serosanguineous -Wound Margin Thickened & Distinct, Rolled Under Outline Attached -Granulation Amt Medium (34-66%) Medium (34-66%) -Granulation Quality Pale,[place] -Necrosis Amt Small (1-33%) Small (1-33%) -Necrotic Tissue Type Adherent Slough Adherent Slough -Texture (Shannon-wound Skin Appearance) Assessed Assessed, Scarring -Moisture (Shannon-wound Skin Appearance) Assessed, No Abnormality, Maceration Assessed -Color (Shannon-wound Skin Appearance) Assessed No Abnormality, Assessed -Temperature (Shannon-wound Skin No Abnormality No Abnormality Appearance) (Pt Warm) (Pt Warm) -Tenderness on Palpation (Shannon-wound No No Skin Appearance) -Ulcer Cleansing Rinsed/ Rinsed/ Irrigated with Irrigated with Saline Saline -Foul Odor after Cleansing No No -Anesthetic Used 5% Lidocaine 5% Lidocaine Gel Gel Lower Limb Edema Present NA WC - Nurse 2 - General Ulcer CM Notes Start: 03/01/22 09:59 Freq: Status: Active Protocol: Activity Type Activity Date Activity User E-sign Co-sign Detail Recorded Client Recorded Date Recorded By Document 03/01/22 12:38 PL [id number] 03/01/22 12:39 PL 03/01/22 12:38 Wound Center Nurse 2 -Time 10:28 -Correct Patient Yes -Correct Side, Site, Position Yes -Correct Procedure Yes -Procedure Performed Yes -Type of Procedure Debridement -Clinical Debridement Subcutaneous -Tissue Removed Subcutaneous -Post Debridement (cm) - Length 1.5 -Post Debridement (cm) - Width 1.5 -Post Debridement (cm) - Depth 1.0 -Total Square (Post) (cm) 2.25 -Area of Debridement (cm) - Length 1.5 -Area of Debridement (cm) - Width 1.5 -Total Square (Area) (cm) 2.25 -Tunneling No -Undermining/Tunneling No -Circular Undermining No -Wound/Ulcer Outcome Not Healed -Ulcer Cleansing Rinsed/ Irrigated with Saline -Foul Odor after Cleansing No -Bioengineered Tissue No -Bleeding Controlled with Pressure -Treatment Response Procedure Tolerated Well -Debridement - Subq, 1st 20sq cm Yes Pain Scale: 0-10 Numeric Is Patient Pain Free? Yes WC - Nurse 3 - General Ulcer D/C NN Start: 03/01/22 09:59 Freq: Status: Active Protocol: Activity Type Activity Date Activity User E-sign Co-sign Detail Recorded Client Recorded Date Recorded By Document 03/01/22 10:45 MT [id number] 03/01/22 10:47 MT Document 03/08/22 11:41 KR [id number] 03/08/22 11:41 KR 03/01/22 03/08/22 10:45 11:41 Wound Care Nurse 3 10. L plantar cluster -Ulcer Cleansing Rinsed/ Rinsed/ Irrigated with Irrigated with Saline Saline -Other Dressing wet to dry, abd dakins, abd pad and kerlix -Primary Dressing Covered/Secured with Dry Gauze & Dry Gauze, Roll Gauze, Secured with Secured with Tape Tape Pain Scale: 0-10 Numeric Is Patient Pain Free? Yes Yes WC - Visit Discharge Discharge Condition Stable Stable Ambulatory Status Ambulatory, Wheelchair Wheelchair Transportation Private Auto Private Auto Medication Reconcilliation completed & No provided to patient/care provider Clinical Summary of Care Provided Yes Notes: pt has dakins at home Assessment/Plan Assessment/Plan (1) Pain in left ankle and joints of left foot: CODE(S): M25.572 - Pain in left ankle and joints of left foot (2) Blister (nonthermal), left foot, initial encounter: CODE(S): S90.822A - Blister (nonthermal), left foot, initial encounter (3) Chronic ulcer of left foot with necrosis of muscle: CODE(S): L97.523 - Non-pressure chronic ulcer of other part of left foot with necrosis of muscle (4) Chronic ulcer of left foot with fat layer exposed: CODE(S): L97.522 - Non-pressure chronic ulcer of other part of left foot with fat layer exposed (5) PAD (peripheral artery disease): CODE(S): I73.9 - Peripheral vascular disease, unspecified (6) Charcot's joint of left foot: CODE(S): M14.672 - Charcot's joint, left ankle and foot (7) Delayed wound healing: CODE(S): T14.8XXD - Other injury of unspecified body region, subsequent encounter PLAN: Plan Patient seen and evaluated Ulceration noted to the plantar aspect of her Chopart amputation stump. Ulceration underwent debridement as noted in clinical panel above. Ulcerative site measures 1.5 cm x 1.2 cm x 1.5 cm. There is localized rubor noted about the ulcerative rim with periwound maceration. Cultures were obtained by Reba Villagran NP and she was started on oral amoxicillin. I have instructed her to continue her oral antibiotic and finish it to completion. Her erythema about the ulcerative site has decreased. I will continue to monitor closely for progressing signs of infection She completed a full course of advanced wound healing product application, epi fix.? To continue to wash daily with antibacterial soap and water.? To change dressing daily Dakin's wet-to-dry dressing. ? Vascular surgery intervention was performed successfully at [facility] recently with Dr. Pang w/ antioplasty at femoral through adductor into popliteal (balloon). Offloading: To maintain non weightbearing status with the use of assistive devices (knee roller/walker when able secondary to shoulder fracture) left lower extremity. ?To use wheelchair with the assistance of the help of her . ?She was advised to avoid direct contact and pressure on the footplate while seated or in her wheelchair. I discussed offloading in her [place] walker boot however she states that this is caused blistering when she has worn this. I discussed that her [place] walker may need to be modified to prevent wounds from forming. I have encouraged her to bring the [place] walker to clinic for evaluat ion. Imaging: X-rays were reviewed from 01/24/22. No signs of osteomyelitis To continue nutritional supplementation to optimize healing.? She is taking Blue and has also been trying to eat more fresh foods.? She is working on more detailed diet planning with her primary care physician. F/u wound care center 1 week.? I answered all of her questions.? To call sooner or go to the emergency room if her clinical appearance worsens or if she develops systemic signs of illness.? Her foot is stable at this time. I discussed today that she is at risk for amputation and limb loss and systemic illness due to her comorbidities.? She informs me she is not a candidate for a BKA due to her heart condition. Note: Exterity speech recognition ad operations coordinator software was used to create portions of this document. Sound-alike and misspelled words, as well as other ad operations coordinator errors may be contained in the documentation.
--- NOTE | 2022-03-15 09:14 | PCM.WC.PN ---
History of Present Illness Date of Service: 03/15/22 Chief Complaint: Left foot plantar ulcer History of Wound: This is 76-year-old female with diabetic neuropathy history of Charcot left foot with rocker-bottom deformity, coronary artery disease and other comorbidities has a recurrent ulcer. She has had delayed healing of her plantar foot ulcer secondary to rocker-bottom Charcot foot deformity, recurrent ulcers and infections. She completed left lower extremity vascular surgery intervention procedure and had this successfully completed at [facility] with Dr. Pang. He denies fever, chill, nausea, vomiting, calf pain, or diarrhea. She is currently being treated with medications for her abdominal pain and has completed her antibiotics for her recent diagnosis of bilateral pneumonia. She has been feeling better and has been able to offload and keep pressure off of her foot in a more compliant manner. She also complains of flareup of left ankle and foot discomfort. She denies redness, bruising or swelling. This is recently been exacerbated over the few weeks. She denies increased activity. Xray of left ankle on 01/24/22 showed Normal visualized distal tibia and fibula. Normal medial and lateral malleoli. Normal tibiotalar articulation and ankle mortise. S/p mid and hindfoot amuption. Soft tissue swelling. 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 She is follow-up in the wound care center today for plantar lateral ulceration to the left foot.? She informs me that she has completed her oral antibiotic course.?She denies any constitutional symptoms today.? She has no further complaints today. Objective Data Objective Data Vital Signs: Vital Signs Temp Pulse Resp BP O2 Del Method 97.2 F L 77 16 133/61 H Room Air 03/08/22 11:02 03/08/22 11:02 03/01/22 09:59 03/08/22 11:02 03/01/22 09:59 Oxygen Delivery Method Room Air Physical Exam Narrative Left foot:? Chopart amputation plantar central foot ulcer has no direct probe to bone, necrosis,?odor, erythema, or purulence noted.? Reduced depth noted.? There is no cellulitis, no fluctuance or bogginess to the left foot.?Negative Claudio and Elizondo sign left.? Compartments remain soft to palpate left lower extremity.?DP? 2/4, left. deep probing noted.? ulcer bed with granular base.? granular base - decreased size noted Pain with palpation to medial malleolus and medial hindfoot along the posterior tibial tendon.? No laxity crepitus or pain with anterior drawer manipulation.? No pain on palpation to lateral malleoli or anterior joint line.? No pain with heel compression.? No pain on palpation to the remaining midfoot bones.? The compartments remain soft and there is no skin tenting. Const alert, oriented x3 and no apparent distress Lymph Lymphatic: no lymphadenopathy noted and no lymphedema noted Resp normal respiratory effort Cardio regular rate and regular rhythm Extremity no joint enlargement and no calf tenderness Skin no rashes or lesions noted, skin turgor normal and no jaundice Wound Narrative: Plantar lateral ulceration to the Chopart amputation stump of the left lower extremity. There is slight maceration periwound. Ulceration demonstrates red, beefy, granular layer with serosanguineous drainage. Neuro moves all extremities Debridement Note Debridement Note Wound debrided: Plantar Chopart stump Laterality: Left Wound Grade/Stage: Antonio stage II Type of Debridement: Excisional debridement Anesthesia Used: 5% Lidocaine Gel Depth: Down to and including healthy tissue and in the subcutaneous layer Percentage of wound debrided: 100 Instrument Used: 3mm curette Tissue Removed: Fibrous, devitalized subcutaneous, biofilm, slough Severity: Fat Layer Exposed Amount of bleeding with debridement: Mild Bleeding Controlled with: Compression and gauze Patient tolerated procedure: Patient tolerated procedure well Post-Debridement Measurements and Additional Note: Post-Debridement Measurements/Treatment - Nurse 1 - General Ulcer Assessment Start: 03/01/22 09:59 Freq: Status: Active Protocol: EUGENE Activity Type Activity Date Activity User E-sign Co-sign Detail Recorded Client Recorded Date Recorded By Document 03/01/22 09:59 CO [id number] 03/01/22 10:02 MT Document 03/08/22 11:02 KR [id number] 03/08/22 11:04 KR 03/01/22 03/08/22 09:59 11:02 - Today's Visit Information Type of service Follow-up Visit Follow-up Visit (Physician/TELECASTING ENGINEER (Physician/TELECASTING ENGINEER ) ) Arrival Mode Wheelchair Wheelchair Patient Identification Verified (Name & Yes Yes ) Patient Requires Transmission-Based Yes Precautions Safety Precautions Fall Prevention Vital Signs Temperature (97.8 F-99.1 F) 96 F L 97.2 F L Temperature Source Temporal Temporal Pulse Rate (60-100) 80 77 Pulse Location Monitor Monitor Respiratory Rate (12-18) 16 Respiratory rate source Observation Oxygen Delivery Method Room Air Blood Pressure (90/60-120/80) 175/59 H 133/61 H Blood Pressure Mean (mm Hg) 97 85 Source Monitor Monitor Position Sitting Semi-Fowlers Blood Pressure Location Left Arm Left Arm History Since Last Visit- (Skip if this is Patient's initial visit) Have you changed medications since your No last visit? Any new allergies or adverse reactions No Had a fall/change in ADL's that may No increase risk of falls Signs or symptoms of abuse and/or No neglect since last visit Have you been in the hospital since your No last visit? Has dressing in place as prescribed Yes Has compression in place as prescribed N/A Has offloadiing in place as prescribed N/A Experienced any changes in pain level or No management Left Footwear No Footwear Right Footwear No Footwear Pain Scale: 0-10 Numeric Is Patient Pain Free? Yes Yes WC - Nurse 1 - General Ulcer Measurement Start: 03/01/22 09:59 Freq: Status: Active Protocol: Activity Type Activity Date Activity User E-sign Co-sign Detail Recorded Client Recorded Date Recorded By Document 03/01/22 09:59 CO [id number] 03/01/22 10:02 MT Document 03/08/22 11:02 [id number] 03/08/22 11:04 KR 03/01/22 03/08/22 09:59 11:02 Wound Center Nurse 1 10. L plantar cluster -Current Size (cm) - Length 1.5 1 -Current Size (cm) - Width 1.5 1.5 -Current Size (cm) - Depth 1.1 1.2 -Total Square Cm 2.25 1.5 -Undermining/Tunneling Yes -Undermining/Tunneling Starts (O'clock 7 ) -Undermining/Tunneling Ends (O'clock) 9 -Maximum Distance (cm) 0.5 -Exudate Amt Small Medium -Exudate Type Serosanguineous Serosanguineous -Wound Margin Thickened & Distinct, Rolled Under Outline Attached -Granulation Amt Medium (34-66%) Medium (34-66%) -Granulation Quality Pale,Galateo Galateo -Necrosis Amt Small (1-33%) Small (1-33%) -Necrotic Tissue Type Adherent Slough Adherent Slough -Texture (Shannon-wound Skin Appearance) Assessed Assessed, Scarring -Moisture (Shannon-wound Skin Appearance) Assessed, No Abnormality, Maceration Assessed -Color (Shannon-wound Skin Appearance) Assessed No Abnormality, Assessed -Temperature (Shannon-wound Skin No Abnormality No Abnormality Appearance) (Pt Warm) (Pt Warm) -Tenderness on Palpation (Shannon-wound No No Skin Appearance) -Ulcer Cleansing Rinsed/ Rinsed/ Irrigated with Irrigated with Saline Saline -Foul Odor after Cleansing No No -Anesthetic Used 5% Lidocaine 5% Lidocaine Gel Gel Lower Limb Edema Present NA WC - Nurse 2 - General Ulcer CM Notes Start: 03/01/22 09:59 Freq: Status: Active Protocol: Activity Type Activity Date Activity User E-sign Co-sign Detail Recorded Client Recorded Date Recorded By Document 03/01/22 12:38 PL [id number] 03/01/22 12:39 PL Document 03/08/22 12:47 PL [id number] 03/08/22 12:49 PL 03/01/22 03/08/22 12:38 12:47 Wound Center Nurse 2 10. L plantar cluster -Time 10:28 11:25 -Correct Patient Yes Yes -Correct Side, Site, Position Yes Yes -Correct Procedure Yes Yes -Procedure Performed Yes Yes -Type of Procedure Debridement Debridement -Clinical Debridement Subcutaneous Subcutaneous -Tissue Removed Subcutaneous Subcutaneous -Post Debridement (cm) - Length 1.5 1.5 -Post Debridement (cm) - Width 1.5 1.2 -Post Debridement (cm) - Depth 1.0 1.5 -Total Square (Post) (cm) 2.25 1.80 -Area of Debridement (cm) - Length 1.5 1.5 -Area of Debridement (cm) - Width 1.5 1.2 -Total Square (Area) (cm) 2.25 1.80 -Tunneling No No -Undermining/Tunneling No No -Circular Undermining No No -Wound/Ulcer Outcome Not Healed Not Healed -Ulcer Cleansing Rinsed/ Rinsed/ Irrigated with Irrigated with Saline Saline -Foul Odor after Cleansing No No -Bioengineered Tissue No No -Bleeding Controlled with Pressure Pressure -Treatment Response Procedure Procedure Tolerated Well Tolerated Well -Debridement - Subq, 1st 20sq cm Yes Yes Pain Scale: 0-10 Numeric Is Patient Pain Free? Yes Yes - Nurse 3 - General Ulcer D/C NN Start: 03/01/22 09:59 Freq: Status: Active Protocol: Activity Type Activity Date Activity User E-sign Co-sign Detail Recorded Client Recorded Date Recorded By Document 03/01/22 10:45 CO [id number] 03/01/22 10:47 CO Document 03/08/22 11:41 KR [id number] 03/08/22 11:41 KR 03/01/22 03/08/22 10:45 11:41 Wound Care Nurse 3 10. L plantar cluster -Ulcer Cleansing Rinsed/ Rinsed/ Irrigated with Irrigated with Saline Saline -Other Dressing wet to dry, abd dakins, abd pad and kerlix -Primary Dressing Covered/Secured with Dry Gauze & Dry Gauze, Roll Gauze, Secured with Secured with Tape Tape Pain Scale: 0-10 Numeric Is Patient Pain Free? Yes Yes - Visit Discharge Discharge Condition Stable Stable Ambulatory Status Ambulatory, Wheelchair Wheelchair Transportation Private Auto Private Auto Medication Reconcilliation completed & No provided to patient/care provider Clinical Summary of Care Provided Yes Notes: pt has dakins at home Assessment/Plan Assessment/Plan (1) Pain in left ankle and joints of left foot: CODE(S): M25.572 - Pain in left ankle and joints of left foot (2) Blister (nonthermal), left foot, initial encounter: CODE(S): S90.822A - Blister (nonthermal), left foot, initial encounter (3) Chronic ulcer of left foot with necrosis of muscle: CODE(S): L97.523 - Non-pressure chronic ulcer of other part of left foot with necrosis of muscle (4) Chronic ulcer of left foot with fat layer exposed: CODE(S): L97.522 - Non-pressure chronic ulcer of other part of left foot with fat layer exposed (5) PAD (peripheral artery disease): CODE(S): I73.9 - Peripheral vascular disease, unspecified (6) Charcot's joint of left foot: CODE(S): M14.672 - Charcot's joint, left ankle and foot (7) Delayed wound healing: CODE(S): T14.8XXD - Other injury of unspecified body region, subsequent encounter PLAN: Plan Patient seen and evaluated Ulceration noted to the plantar aspect of her Chopart amputation stump left foot. Ulceration underwent debridement as noted in clinical panel above. Ulcerative site measures 1.3 cm x 1.5 cm x 1.3 cm. There is localized rubor noted about the ulcerative rim with periwound maceration. Cultures were obtained by Reba Villagran NP and she was started on oral amoxicillin. She has finished oral antibiotic course. Her erythema about the ulcerative site has resolved. I will continue to monitor closely for progressing signs of infection. She completed a full course of advanced wound healing product application, epi fix.? To continue to wash daily with antibacterial soap and water.? We will hold Dakin's wet to dry dressing. She will apply collagen powder and PHMB dressing to the wound site and dressed with dry sterile dressing. She is to change dressings daily. ? Vascular surgery intervention was performed successfully at [facility] recently with Dr. Pang w/ antioplasty at femoral through adductor into popliteal (balloon). Offloading: To maintain non weightbearing status with the use of assistive devices (knee roller/walker when able secondary to shoulder fracture) left lower extremity. ?To use wheelchair with the assistance of the help of her . ?She was advised to avoid direct contact and pressure on the footplate while seated or in her wheelchair. I discussed offloading in her [place] walker boot however she states that this is caused blistering when she has worn this. I discussed that her [place] walker may need to be modified to prevent wounds from forming. I have encouraged her to bring the [place] walker to clinic for evaluation. Imaging: X-rays were reviewed from 01/24/22. No signs of osteomyelitis To continue nutritional supplementation to optimize healing.? She is taking Blue and has also been trying to eat more fresh foods.? She is working on more detailed diet planning with her primary care physician. F/u wound care center 2 weeks.? I answered all of her questions.? To call sooner or go to the emergency room if her clinical appearance worsens or if she develops systemic signs of illness.? Her foot is stable at this time. I discussed today that she is at risk for amputation and limb loss and systemic illness due to her comorbidities.? She informs me she is not a candidate for a BKA due to her heart condition. Note: [employer] speech recognition kaiawhina kohanga reo software was used to create portions of this document. Sound-alike and misspelled words, as well as other kaiawhina kohanga reo errors may be contained in the documentation.
[2022-03-15 09:18] VITALS: BP 159/67; PULSE 65; TEMP 36
== END 2022-03-26 23:59 | disposition home or self-care (01) ==
LOC: WC 09:15
PROVIDERS: PCP Family Medicine; Referring Provider Podiatrist; Visit Provider Podiatrist
DX: E11.621 Type 2 diabetes mellitus with foot ulcer (principal); E11.51 Type 2 diabetes mellitus with diabetic peripheral angiopathy without gangrene; L97.523 Non-pressure chronic ulcer of other part of left foot with necrosis of muscle; E11.40 Type 2 diabetes mellitus with diabetic neuropathy, unspecified; E11.610 Type 2 diabetes mellitus with diabetic neuropathic arthropathy; I73.9 Peripheral vascular disease, unspecified; Z79.4 Long term (current) use of insulin; M79.89 Other specified soft tissue disorders; M25.572 Pain in left ankle and joints of left foot; I25.10 Atherosclerotic heart disease of native coronary artery without angina pectoris; Z79.82 Long term (current) use of aspirin; Z79.02 Long term (current) use of antithrombotics/antiplatelets; Z79.890 Hormone replacement therapy; Z79.899 Other long term (current) drug therapy
CPT/HCPCS: 11042

== ENCOUNTER → 2022-04-14 | Outpatient (CLI) | payer MEDICARE, OTHER, SELFPAY ==
[2022-04-14 10:54] LABS: Absolute Lymphocyte Count 1.85 X10^3/uL (0.83-4.51); Absolute Neutrophil Count 4.6 X10^3/uL (2.0-7.7); Basophil# 0.02 X10^3/uL; Basophil% 0.3 % (0-1); Eosinophil# 0.17 X10^3/uL; Eosinophils% 2.3 % (0-5); Hematocrit 33.1 % (37-47); Hemoglobin 9.9 g/dL (12.0-15.0); Lymphocyte # 1.85 X10^3/ul (0.83-4.51); Lymphocyte % 25.2 % (19-41); Mean Corp Hgb Conc 29.9 g/dL (32-36); Mean Platelet Vol. 10.1 fl (6.2-12.0); Monocyte# 0.64 X10^3/uL; Monocyte% 8.7 % (0-10); NRBC Flagged by Analyzer 0 % (0-5); Neutrophil # 4.64 X10^3/uL (2.7-7.7); Neutrophil % 63.2 % (47-70); Platelet Count 232 K/mm3 (150-450); RBC Distribution Width CV 15.8 % (11.6-14.6); RBC Distribution Width SD 43.6 fl (35.1-43.9); White Blood Count 7.3 K/mm3 (4.4-11.0)
[2022-04-14 11:20] LABS: Hemoglobin A1c 7.4 % (3.8-5.6)
[2022-04-14 13:21] LABS: ALB/GLOB Ratio 0.7 RATIO (0.9-2.4); AST(SGOT) 21 U/L (15-37); Alanine Aminotransfer ALT/SGPT 25 U/L (13-56); Albumin, Serum 2.9 g/dL (3.2-5.0); Alkaline Phosphatase 95 U/L (45-117); Anion Gap 6 (5-15); BUN 41 mg/dL (7-18); BUN/Creat Ratio 30.1 RATIO (10-20); Chloride 108 mmol/L (98-107); Cholesterol 137 mg/dL (200); Creatinine, Serum 1.36 mg/dL (0.55-1.02); EST Glomerular Filtration Rate 40 mL/min (>60); Est Glom Filt Rate - Afr Amer 49 mL/min (>60); Ferritin 7 ng/mL (8-252); Folates, (Folic Acid) > 100.00 ng/mL (3.1-55.4); Globulin 4.4 g/dL (2.2-4.2); Glucose 207 mg/dL (74-106); High Density Lipoprotein 48 mg/dL; Potassium 4.4 mmol/L (3.5-5.1); Protein, Total 7.3 g/dL (6.4-8.2); Sodium Level 138 mmol/L (136-145)
[2022-04-16 10:32] LABS: Vitamin B12 > 2000 pg/mL (211-911)
== END | disposition home or self-care (01) ==
LOC: LAB 10:00
PROVIDERS: PCP Family Medicine; Visit Provider Family Medicine
DX: I25.10 Atherosclerotic heart disease of native coronary artery without angina pectoris (principal); E11.22 Type 2 diabetes mellitus with diabetic chronic kidney disease; Z79.4 Long term (current) use of insulin; E53.8 Deficiency of other specified B group vitamins; N18.2 Chronic kidney disease, stage 2 (mild)
CPT/HCPCS: 36415; 80053; 82465; 82607; 82728; 82746; 83036; 83718; 85025

== ENCOUNTER 2022-04-24 10:45 | Outpatient (RCR) | payer MEDICARE, OTHER, SELFPAY ==
[2022-03-27 00:27] VITALS: BP 159/67; PULSE 65; RESP 16; TEMP 36
[2022-03-27 10:20] VITALS: BP 135/57; PULSE 72; RESP 16; TEMP 36.2
--- NOTE | 2022-03-27 11:09 | PCM.WC.PN ---
History of Present Illness Date of Service: 03/27/22 Chief Complaint: Left foot plantar ulcer History of Wound: This is 76-year-old female with diabetic neuropathy history of Charcot left foot with rocker-bottom deformity in setting of diabetic neuropathy secondary to left Chopart amputation. Patient denies constitutional symptoms. Patient notes that she is offloading it by staying predominantly in a wheelchair but she does transfer and put diffuse weight to her left foot. Patient denies any pain or any other complaints at this time. Objective Data Objective Data Vital Signs: Vital Signs Temp Pulse Resp BP O2 Del Method 97.1 F L 72 16 135/57 H Room Air 03/27/22 10:20 03/27/22 10:20 03/27/22 10:20 03/27/22 10:20 03/27/22 10:20 Oxygen Delivery Method Room Air Physical Exam Narrative Left foot:? Chopart amputation plantar central foot ulcer has no direct probe to bone, necrosis,?odor, erythema, or purulence noted.? Reduced depth noted.? There is no cellulitis, no fluctuance or bogginess to the left foot.?Negative Claudio and Elizondo sign left.? Compartments remain soft to palpate left lower extremity.?DP? 2/4, left. deep probing noted.? ulcer bed with granular base.? granular base - decreased size noted Pain with palpation to medial malleolus and medial hindfoot along the posterior tibial tendon.? No laxity crepitus or pain with anterior drawer manipulation.? No pain on palpation to lateral malleoli or anterior joint line.? No pain with heel compression.? No pain on palpation to the remaining midfoot bones.? The compartments remain soft and there is no skin tenting. Const alert, oriented x3 and no apparent distress Lymph Lymphatic: no lymphadenopathy noted and no lymphedema noted Resp normal respiratory effort Cardio regular rate and regular rhythm Extremity no joint enlargement and no calf tenderness Skin no rashes or lesions noted, skin turgor normal and no jaundice Wound Narrative: Plantar lateral ulceration to the Chopart amputation stump of the left lower extremity. There is slight maceration periwound. Ulceration demonstrates red, beefy, granular layer with serosanguineous drainage. Neuro moves all extremities Debridement Note Debridement Note Post-Debridement Measurements and Additional Note: Post-Debridement Measurements/Treatment WC - Nurse 1 - General Ulcer Assessment Start: 03/27/22 10:20 Freq: Status: Active Protocol: EUGENE Activity Type Activity Date Activity User E-sign Co-sign Detail Recorded Client Recorded Date Recorded By Document 03/27/22 10:20 [facility] [id number] 03/27/22 10:24 [facility] 03/27/22 10:20 - Today's Visit Information Type of service Follow-up Visit (Physician/SECURITY DOOR INSTALLER ) Arrival Mode Wheelchair Transfer Assistance None Patient Identification Verified (Name & Yes ) Patient Requires Transmission-Based No Precautions Vital Signs Temperature (97.8 F-99.1 F) 97.1 F L Temperature Source Temporal Pulse Rate (60-100) 72 Pulse Location Monitor Respiratory Rate (12-18) 16 Respiratory rate source Observation Oxygen Delivery Method Room Air Blood Pressure (90/60-120/80) 135/57 H Blood Pressure Mean (mm Hg) 83 Source Monitor Position Sitting Blood Pressure Location Right Arm History Since Last Visit- (Skip if this is Patient's initial visit) Have you changed medications since your No last visit? Any new allergies or adverse reactions No Had a fall/change in ADL's that may No increase risk of falls Signs or symptoms of abuse and/or No neglect since last visit Have you been in the hospital since your No last visit? Has dressing in place as prescribed Yes Has compression in place as prescribed N/A Has offloadiing in place as prescribed Yes Experienced any changes in pain level or No management Other Footwear SOCKS BOTH FEET Pain Scale: 0-10 Numeric Is Patient Pain Free? Yes - Nurse 1 - General Ulcer Measurement Start: 03/27/22 10:20 Freq: Status: Active Protocol: Activity Type Activity Date Activity User E-sign Co-sign Detail Recorded Client Recorded Date Recorded By Document 03/27/22 10:20 [facility] [id number] 03/27/22 10:24 [facility] 03/27/22 10:20 Wound Center Nurse 1 10. L plantar cluster -Combined with other wound No -Current Size (cm) - Length 0.8 -Current Size (cm) - Width 1 -Current Size (cm) - Depth 0.7 -Total Square Cm 0.8 -Date of Last Picture (Recall this 03/27/22 field) -Photo Taken Yes -Epithelialization None Present -Tunneling No -Undermining/Tunneling No -Circular Undermining No -Exudate Amt Medium -Exudate Type Serosanguineous -Wound Margin Distinct, Outline Attached -Granulation Amt Large (67-100%) -Granulation Quality Red -Slough/Fibrin Yes -Necrosis Amt Small (1-33%) -Necrotic Tissue Type Adherent Slough -Texture (Shannon-wound Skin Appearance) Assessed, Scarring -Moisture (Shannon-wound Skin Appearance) Assessed, Maceration -Color (Shannon-wound Skin Appearance) Assessed,Palor -Temperature (Shannon-wound Skin No Abnormality Appearance) (Pt Warm) -Tenderness on Palpation (Shannon-wound Yes Skin Appearance) -Ulcer Cleansing Rinsed/ Irrigated with Saline -Foul Odor after Cleansing No -Anesthetic Used 4% Lidocaine Solution WC - Nurse 2 - General Ulcer CM Notes Start: 03/27/22 10:20 Freq: Status: Active Protocol: Activity Type Activity Date Activity User E-sign Co-sign Detail Recorded Client Recorded Date Recorded By Document 03/27/22 10:49 [facility] [id number] 03/27/22 10:54 [facility] 03/27/22 10:49 Wound Center Nurse 2 -Time 10:50 -Correct Patient Yes -Correct Side, Site, Position Yes -Correct Procedure Yes -Procedure Performed Yes -Type of Procedure Debridement -Clinical Debridement Subcutaneous -Tissue Removed Subcutaneous -Post Debridement (cm) - Length 1.8 -Post Debridement (cm) - Width 1.9 -Post Debridement (cm) - Depth 1.5 -Total Square (Post) (cm) 3.42 -Area of Debridement (cm) - Length 1.8 -Area of Debridement (cm) - Width 1.9 -Total Square (Area) (cm) 3.42 -Tunneling No -Undermining/Tunneling No -Circular Undermining No -Wound/Ulcer Outcome Not Healed -Ulcer Cleansing Rinsed/ Irrigated with Saline -Foul Odor after Cleansing No -Bioengineered Tissue No -Bleeding Controlled with Pressure -Treatment Response Procedure Tolerated Well -Offloading Yes -Type of Offloading Knee Walker -Debridement - Subq, 1st 20sq cm Yes Pain Scale: 0-10 Numeric Is Patient Pain Free? Yes Assessment/Plan Assessment/Plan (1) Pain in left ankle and joints of left foot: CODE(S): M25.572 - Pain in left ankle and joints of left foot (2) Blister (nonthermal), left foot, initial encounter: CODE(S): S90.822A - Blister (nonthermal), left foot, initial encounter (3) Chronic ulcer of left foot with necrosis of muscle: CODE(S): L97.523 - Non-pressure chronic ulcer of other part of left foot with necrosis of muscle (4) Chronic ulcer of left foot with fat layer exposed: CODE(S): L97.522 - Non-pressure chronic ulcer of other part of left foot with fat layer exposed (5) PAD (peripheral artery disease): CODE(S): I73.9 - Peripheral vascular disease, unspecified (6) Charcot's joint of left foot: CODE(S): M14.672 - Charcot's joint, left ankle and foot (7) Delayed wound healing: CODE(S): T14.8XXD - Other injury of unspecified body region, subsequent encounter PLAN: Plan Patient examined evaluated, all fine discussed patient in detail. Radiographs reviewed demonstrate plantar flexed deformity of the amputation site with the calcaneus and talus as well as residual navicular placed in a plantarflexed position deformity creating a plantar lateral ulceration at the site at the anterior lateral acute calcaneal tip. Achilles appears to be intact. Patient discussed with me and agreed detail that if her wound does not heal by the end of the year on 05/27/2022, she will proceed with below-knee amputation on the left side. I discussed in detail that residual deformity is likely limiting her ability to heal the wound as well as incomplete offloading of the left lower extremity. I discussed in great detail performing a potential Achilles tenotomy with splinting in order to heal the site. I recommend complete nonweightbearing to left lower extremity. Left plantar foot wound was excisionally debrided down to including level of subcutaneous tissue of all nonviable tissue using tissue nippers and dermal curette. Hemostasis obtained with light compression. No anesthesia due to neuropathy. Patient tolerated procedure well. Pre and postdebridement measurements document nursing notes. Will continue current dressings. Planning for total contact casting on the follow-up.
[2022-04-03 10:50] VITALS: BP 125/63; PULSE 76; RESP 16
--- NOTE | 2022-04-03 11:23 | PN.PCM_ITS ---
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 Patient denies constitutional symptoms. Patient notes that she is offloading it by staying predominantly in a wheelchair but she does transfer and put diffuse weight to her left foot. Patient denies any pain or any other complaints at this time. Objective Data Objective Data Vital Signs: Vital Signs Temp Pulse Resp BP O2 Del Method 97.1 F L 76 16 125/63 H Room Air 03/27/22 10:20 04/03/22 10:50 04/03/22 10:50 04/03/22 10:50 04/03/22 10:50 Oxygen Delivery Method Room Air Physical Exam Narrative Left foot:? Chopart amputation plantar central foot ulcer has no direct probe to bone, necrosis,?odor, erythema, or purulence noted.? Reduced depth noted.? There is no cellulitis, no fluctuance or bogginess to the left foot.?Negative Claudio and Elizondo sign left.? Compartments remain soft to palpate left lower extremity.?DP? 2/4, left. deep probing noted.? ulcer bed with granular base.? granular base - decreased size noted Pain with palpation to medial malleolus and medial hindfoot along the posterior tibial tendon.? No laxity crepitus or pain with anterior drawer manipulation.? No pain on palpation to lateral malleoli or anterior joint line.? No pain with heel compression.? No pain on palpation to the remaining midfoot bones.? The compartments remain soft and there is no skin tenting. Const alert, oriented x3 and no apparent distress Lymph Lymphatic: no lymphadenopathy noted and no lymphedema noted Resp normal respiratory effort Cardio regular rate and regular rhythm Extremity no joint enlargement and no calf tenderness Skin no rashes or lesions noted, skin turgor normal and no jaundice Wound Narrative: Plantar lateral ulceration to the Chopart amputation stump of the left lower extremity. There is slight maceration periwound. Ulceration demonstrates red, beefy, granular layer with serosanguineous drainage. Neuro moves all extremities Debridement Note Debridement Note Post-Debridement Measurements and Additional Note: Post-Debridement Measurements/Treatment WC - Nurse 1 - General Ulcer Assessment Start: 03/27/22 10:20 Freq: Status: Active Protocol: EUGENE Activity Type Activity Date Activity User E-sign Co-sign Detail Recorded Client Recorded Date Recorded By Document 03/27/22 10:20 [facility] [id number] 03/27/22 10:24 [facility] Document 04/03/22 10:50 [facility] [id number] 04/03/22 10:59 [facility] 03/27/22 04/03/22 10:20 10:50 - Today's Visit Information Type of service Follow-up Visit Follow-up Visit (Physician/CHILD CARE DIRECTOR (Physician/CHILD CARE DIRECTOR ) ) Arrival Mode Wheelchair Wheelchair Transfer Assistance None None Patient Identification Verified (Name & Yes Yes ) Patient Requires Transmission-Based No No Precautions Vital Signs Temperature (97.8 F-99.1 F) 97.1 F L Temperature Source Temporal Pulse Rate (60-100) 72 76 Pulse Location Monitor Monitor Respiratory Rate (12-18) 16 16 Respiratory rate source Observation Observation Oxygen Delivery Method Room Air Room Air Blood Pressure (90/60-120/80) 135/57 H 125/63 H Blood Pressure Mean (mm Hg) 83 83 Source Monitor Monitor Position Sitting Sitting Blood Pressure Location Right Arm Right Arm History Since Last Visit- (Skip if this is Patient's initial visit) Have you changed medications since your No No last visit? Any new allergies or adverse reactions No No Had a fall/change in ADL's that may No No increase risk of falls Signs or symptoms of abuse and/or No No neglect since last visit Have you been in the hospital since your No No last visit? Has dressing in place as prescribed Yes Yes Has compression in place as prescribed N/A N/A Has offloadiing in place as prescribed Yes N/A Experienced any changes in pain level or No No management Other Footwear SOCKS BOTH FEET SOCKS BLE Pain Scale: 0-10 Numeric Is Patient Pain Free? Yes Yes - Nurse 1 - General Ulcer Measurement Start: 03/27/22 10:20 Freq: Status: Active Protocol: Activity Type Activity Date Activity User E-sign Co-sign Detail Recorded Client Recorded Date Recorded By Document 03/27/22 10:20 [facility] [id number] 03/27/22 10:24 [facility] Document 04/03/22 10:50 [facility] [id number] 04/03/22 10:59 [facility] 03/27/22 04/03/22 10:20 10:50 Wound Center Nurse 1 10. L plantar cluster -Combined with other wound No No -Current Size (cm) - Length 0.8 1.3 -Current Size (cm) - Width 1 1.2 -Current Size (cm) - Depth 0.7 0.8 -Total Square Cm 0.8 1.56 -Date of Last Picture (Recall this 03/27/22 04/03/22 field) -Photo Taken Yes Yes -Epithelialization None Present None Present -Tunneling No No -Undermining/Tunneling No Yes -Undermining/Tunneling Starts (O'clock 12 ) -Undermining/Tunneling Ends (O'clock) 3 -Maximum Distance (cm) 0.2 -Circular Undermining No No -Exudate Amt Medium Medium -Exudate Type Serosanguineous Serosanguineous -Wound Margin Distinct, Distinct, Outline Outline Attached Attached -Granulation Amt Large (67-100%) Large (67-100%) -Granulation Quality Red Pale,Red -Slough/Fibrin Yes Yes -Necrosis Amt Small (1-33%) Medium (34-66%) -Necrotic Tissue Type Adherent Slough Adherent Slough -Texture (Shannon-wound Skin Appearance) Assessed, Assessed, Scarring Scarring -Moisture (Shannon-wound Skin Appearance) Assessed, Assessed Maceration -Color (Shannon-wound Skin Appearance) Assessed,Palor Assessed -Temperature (Shannon-wound Skin No Abnormality No Abnormality Appearance) (Pt Warm) (Pt Warm) -Tenderness on Palpation (Shannon-wound Yes No Skin Appearance) -Ulcer Cleansing Rinsed/ Soap and Water Irrigated with Saline -Foul Odor after Cleansing No No -Anesthetic Used 4% Lidocaine 5% Lidocaine Solution Gel Lower Limb Edema Present Yes Right Calf (cm) 33.3 Right Ankle (cm) 20.2 WC - Nurse 2 - General Ulcer CM Notes Start: 03/27/22 10:20 Freq: Status: Active Protocol: Activity Type Activity Date Activity User E-sign Co-sign Detail Recorded Client Recorded Date Recorded By Document 03/27/22 10:49 [id number] 03/27/22 10:54 Document 04/03/22 11:22 [id number] 04/03/22 11:23 03/27/22 04/03/22 10:49 11:22 Wound Center Nurse 2 10. L plantar cluster -Time 10:50 11:22 -Correct Patient Yes Yes -Correct Side, Site, Position Yes Yes -Correct Procedure Yes Yes -Procedure Performed Yes Yes -Type of Procedure Debridement Debridement -Clinical Debridement Subcutaneous Subcutaneous -Tissue Removed Subcutaneous Subcutaneous -Post Debridement (cm) - Length 1.8 1.3 -Post Debridement (cm) - Width 1.9 0.3 -Post Debridement (cm) - Depth 1.5 0.8 -Total Square (Post) (cm) 3.42 0.39 -Area of Debridement (cm) - Length 1.8 1.3 -Area of Debridement (cm) - Width 1.9 1.3 -Total Square (Area) (cm) 3.42 1.69 -Tunneling No No -Undermining/Tunneling No No -Circular Undermining No No -Wound/Ulcer Outcome Not Healed Not Healed -Ulcer Cleansing Rinsed/ Rinsed/ Irrigated with Irrigated with Saline Saline -Foul Odor after Cleansing No No -Bioengineered Tissue No No -Bleeding Controlled with Pressure Pressure -Treatment Response Procedure Procedure Tolerated Well Tolerated Well -Offloading Yes Yes -Type of Offloading Knee Walker Surgical Shoe -Debridement - Subq, 1st 20sq cm Yes Yes Pain Scale: 0-10 Numeric Is Patient Pain Free? Yes Yes - Nurse 3 - General Ulcer D/C NN Start: 03/27/22 10:20 Freq: Status: Active Protocol: Activity Type Activity Date Activity User E-sign Co-sign Detail Recorded Client Recorded Date Recorded By Document 03/27/22 11:10 [facility] [id number] 03/27/22 11:10 [facility] 03/27/22 11:10 Wound Care Nurse 3 10. L plantar cluster -Ulcer Cleansing Rinsed/ Irrigated with Saline -Foul Odor after Cleansing No -Primary Dressing Applied Mepilex Border, Promogran Lotus Matter -Mepilex Border 2 -Promogran Lotus Matter 1 Treatment Response Procedure Tolerated Well Pain Scale: 0-10 Numeric Is Patient Pain Free? Yes - Visit Discharge Discharge Condition Stable Ambulatory Status Wheelchair Transportation Private Auto Assessment/Plan Assessment/Plan (1) Pain in left ankle and joints of left foot: CODE(S): M25.572 - Pain in left ankle and joints of left foot (2) Blister (nonthermal), left foot, initial encounter: CODE(S): S90.822A - Blister (nonthermal), left foot, initial encounter (3) Chronic ulcer of left foot with necrosis of muscle: CODE(S): L97.523 - Non-pressure chronic ulcer of other part of left foot with necrosis of muscle (4) Chronic ulcer of left foot with fat layer exposed: CODE(S): L97.522 - Non-pressure chronic ulcer of other part of left foot with fat layer exposed (5) PAD (peripheral artery disease): CODE(S): I73.9 - Peripheral vascular disease, unspecified (6) Charcot's joint of left foot: CODE(S): M14.672 - Charcot's joint, left ankle and foot (7) Delayed wound healing: CODE(S): T14.8XXD - Other injury of unspecified body region, subsequent encounter PLAN: Plan Patient examined evaluated, all fine discussed patient in detail. Radiographs reviewed demonstrate plantar flexed deformity of the amputation site with the calcaneus and talus as well as residual navicular placed in a plantarflexed position deformity creating a plantar lateral ulceration at the site at the anterior lateral acute calcaneal tip. Achilles appears to be intact. Patient discussed with me and agreed detail that if her wound does not heal by the end of the year on 05/27/2022, she will proceed with below-knee amputation on the left side. I discussed in detail that residual deformity is likely limiting her ability to heal the wound as well as incomplete offloading of the left lower extremity. I discussed in great detail performing a potential Achilles tenotomy with splinting in order to heal the site. I recommend complete nonweightbearing to left lower extremity. Left plantar foot wound was excisionally debrided down to including level of subcutaneous tissue of all nonviable tissue using tissue nippers and dermal curette. Hemostasis obtained with light compression. No anesthesia due to neuropathy. Patient tolerated procedure well. Pre and postdebridement measurements document nursing notes. Will continue current dressings. Planning for total contact casting on the follow-up.
--- NOTE | 2022-04-03 15:01 | ART_ITS ---
Reason For Study: L Plantar Foot Ulcer Procedure A bilateral lower extremity continuous wave Doppler with analog waveform analysis,segmental pressures,and ankle brachial indexes without exercise. Left Segmental Pressures Left brachial= 154mmHg. Left thigh = >254mmHg. Left calf = >254mmHg. Left posterior tibial artery = >254mmHg. Left dorsalis pedis artery = >254mmHg. The left posterior tibial artery waveforms are triphasic. The left dorsalis pedis waveforms are biphasic. Right Segmental Pressures Right brachial= 148mmHg. Right thigh = >254mmHg. Right calf = >254mmHg. Right posterior tibial artery = 124mmHg. Right dorsalis pedis artery = >254mmHg. The right posterior tibial artery waveforms are biphasic. The right dorsalis pedis waveforms are biphasic. Indices The right ankle brachial index by the posterior tibial artery is 0.81. The right ankle brachial index by the dorsalis pedis is N/C. The left ankle brachial index by the posterior tibial artery is N/C. The left ankle brachial index by the dorsalis pedis is N/C. VL/Lower Ext Art Exam w/o Exercis Interpretation Summary Biphasic Doppler waveforms are noted at ankle level on the right. Triphasic and biphasic Doppler waveforms are noted at ankle level on the left. Pulse-volume recordings appear satisfactory at low thigh, calf, and ankle levels bilaterally. The resting right ankle-brachial ind ex is mildly diminished. The resting left ankle-brachial index could not be determined due t o the non- compressibility of the vasculature at ankle level on the left. There is evidence of arterial calcification at all levels bilaterally. Arterial calcification compromises the diagnostic accuracy of this study. However, the findings sugges t the likely presence of only mild arterial occlusive disease bilaterally. Clinical correlation is ad vised. Ordering Physician: Claus Macias Referring Physician: Con Johnson MD Performed By: Bridger Gibbons RVT
--- NOTE | 2022-04-10 11:15 | PN.PCM_ITS ---
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 Patient denies constitutional symptoms. Patient notes that she is offloading it by staying predominantly in a wheelchair but she does transfer and put diffuse weight to her left foot. Patient denies any pain or any other complaints at this time. Objective Data Objective Data Vital Signs: Vital Signs Temp Pulse Resp BP O2 Del Method 97.1 F L 76 16 125/63 H Room Air 03/27/22 10:20 04/03/22 10:50 04/03/22 10:50 04/03/22 10:50 04/03/22 10:50 Oxygen Delivery Method Room Air Physical Exam Narrative Left foot:? Chopart amputation plantar central foot ulcer has no direct probe to bone, necrosis,?odor, erythema, or purulence noted.? Reduced depth noted.? There is no cellulitis, no fluctuance or bogginess to the left foot.?Negative Claudio and Elizondo sign left.? Compartments remain soft to palpate left lower extremity.?DP? 2/4, left. deep probing noted.? ulcer bed with granular base.? granular base - decreased size noted Pain with palpation to medial malleolus and medial hindfoot along the posterior tibial tendon.? No laxity crepitus or pain with anterior drawer manipulation.? No pain on palpation to lateral malleoli or anterior joint line.? No pain with heel compression.? No pain on palpation to the remaining midfoot bones.? The compartments remain soft and there is no skin tenting. Const alert, oriented x3 and no apparent distress Lymph Lymphatic: no lymphadenopathy noted and no lymphedema noted Resp normal respiratory effort Cardio regular rate and regular rhythm Extremity no joint enlargement and no calf tenderness Skin no rashes or lesions noted, skin turgor normal and no jaundice Wound Narrative: Plantar lateral ulceration to the Chopart amputation stump of the left lower extremity. There is slight maceration periwound. Ulceration demonstrates red, beefy, granular layer with serosanguineous drainage. Neuro moves all extremities Debridement Note Debridement Note Post-Debridement Measurements and Additional Note: Post-Debridement Measurements/Treatment WC - Nurse 1 - General Ulcer Assessment Start: 03/27/22 10:20 Freq: Status: Active Protocol: EUGENE Activity Type Activity Date Activity User E-sign Co-sign Detail Recorded Client Recorded Date Recorded By Document 03/27/22 10:20 [facility] [id number] 03/27/22 10:24 [facility] Document 04/03/22 10:50 [facility] [id number] 04/03/22 10:59 [facility] 03/27/22 04/03/22 10:20 10:50 - Today's Visit Information Type of service Follow-up Visit Follow-up Visit (Physician/PRODUCTION LINE WORKER (Physician/PRODUCTION LINE WORKER ) ) Arrival Mode Wheelchair Wheelchair Transfer Assistance None None Patient Identification Verified (Name & Yes Yes ) Patient Requires Transmission-Based No No Precautions Vital Signs Temperature (97.8 F-99.1 F) 97.1 F L Temperature Source Temporal Pulse Rate (60-100) 72 76 Pulse Location Monitor Monitor Respiratory Rate (12-18) 16 16 Respiratory rate source Observation Observation Oxygen Delivery Method Room Air Room Air Blood Pressure (90/60-120/80) 135/57 H 125/63 H Blood Pressure Mean (mm Hg) 83 83 Source Monitor Monitor Position Sitting Sitting Blood Pressure Location Right Arm Right Arm History Since Last Visit- (Skip if this is Patient's initial visit) Have you changed medications since your No No last visit? Any new allergies or adverse reactions No No Had a fall/change in ADL's that may No No increase risk of falls Signs or symptoms of abuse and/or No No neglect since last visit Have you been in the hospital since your No No last visit? Has dressing in place as prescribed Yes Yes Has compression in place as prescribed N/A N/A Has offloadiing in place as prescribed Yes N/A Experienced any changes in pain level or No No management Other Footwear SOCKS BOTH FEET SOCKS BLE Pain Scale: 0-10 Numeric Is Patient Pain Free? Yes Yes - Nurse 1 - General Ulcer Measurement Start: 03/27/22 10:20 Freq: Status: Active Protocol: Activity Type Activity Date Activity User E-sign Co-sign Detail Recorded Client Recorded Date Recorded By Document 03/27/22 10:20 [facility] [id number] 03/27/22 10:24 [facility] Document 04/03/22 10:50 [facility] [id number] 04/03/22 10:59 [facility] 03/27/22 04/03/22 10:20 10:50 Wound Center Nurse 1 10. L plantar cluster -Combined with other wound No No -Current Size (cm) - Length 0.8 1.3 -Current Size (cm) - Width 1 1.2 -Current Size (cm) - Depth 0.7 0.8 -Total Square Cm 0.8 1.56 -Date of Last Picture (Recall this 03/27/22 04/03/22 field) -Photo Taken Yes Yes -Epithelialization None Present None Present -Tunneling No No -Undermining/Tunneling No Yes -Undermining/Tunneling Starts (O'clock 12 ) -Undermining/Tunneling Ends (O'clock) 3 -Maximum Distance (cm) 0.2 -Circular Undermining No No -Exudate Amt Medium Medium -Exudate Type Serosanguineous Serosanguineous -Wound Margin Distinct, Distinct, Outline Outline Attached Attached -Granulation Amt Large (67-100%) Large (67-100%) -Granulation Quality Red Pale,Red -Slough/Fibrin Yes Yes -Necrosis Amt Small (1-33%) Medium (34-66%) -Necrotic Tissue Type Adherent Slough Adherent Slough -Texture (Shannon-wound Skin Appearance) Assessed, Assessed, Scarring Scarring -Moisture (Shannon-wound Skin Appearance) Assessed, Assessed Maceration -Color (Shannon-wound Skin Appearance) Assessed,Palor Assessed -Temperature (Shannon-wound Skin No Abnormality No Abnormality Appearance) (Pt Warm) (Pt Warm) -Tenderness on Palpation (Shannon-wound Yes No Skin Appearance) -Ulcer Cleansing Rinsed/ Soap and Water Irrigated with Saline -Foul Odor after Cleansing No No -Anesthetic Used 4% Lidocaine 5% Lidocaine Solution Gel Lower Limb Edema Present Yes Right Calf (cm) 33.3 Right Ankle (cm) 20.2 WC - Nurse 2 - General Ulcer CM Notes Start: 03/27/22 10:20 Freq: Status: Active Protocol: Activity Type Activity Date Activity User E-sign Co-sign Detail Recorded Client Recorded Date Recorded By Document 03/27/22 10:49 [id number] 03/27/22 10:54 Document 04/03/22 11:22 [id number] 04/03/22 11:23 Document 04/10/22 11:05 [id number] 04/10/22 11:07 03/27/22 04/03/22 04/10/22 10:49 11:22 11:05 Wound Center Nurse 2 10. L plantar cluster -Time 10:50 11:22 11:06 -Correct Patient Yes Yes Yes -Correct Side, Site, Position Yes Yes Yes -Correct Procedure Yes Yes Yes -Procedure Performed Yes Yes Yes -Type of Procedure Debridement Debridement Debridement -Clinical Debridement Subcutaneous Subcutaneous Subcutaneous -Tissue Removed Subcutaneous Subcutaneous Subcutaneous -Post Debridement (cm) - Length 1.8 1.3 1.3 -Post Debridement (cm) - Width 1.9 0.3 1.4 -Post Debridement (cm) - Depth 1.5 0.8 0.8 -Total Square (Post) (cm) 3.42 0.39 1.82 -Area of Debridement (cm) - Length 1.8 1.3 1.3 -Area of Debridement (cm) - Width 1.9 1.3 1.4 -Total Square (Area) (cm) 3.42 1.69 1.82 -Tunneling No No No -Undermining/Tunneling No No No -Circular Undermining No No No -Wound/Ulcer Outcome Not Healed Not Healed Not Healed -Ulcer Cleansing Rinsed/ Rinsed/ Rinsed/ Irrigated with Irrigated with Irrigated with Saline Saline Saline -Foul Odor after Cleansing No No No -Bioengineered Tissue No No No -Bleeding Controlled with Pressure Pressure Pressure -Treatment Response Procedure Procedure Procedure Tolerated Well Tolerated Well Tolerated Well -Offloading Yes Yes Yes -Type of Offloading Knee Walker Surgical Shoe Knee Walker -Assistive Device(s) Wheelchair -Debridement - Subq, 1st 20sq cm Yes Yes Yes Pain Scale: 0-10 Numeric Is Patient Pain Free? Yes Yes Yes - Nurse 3 - General Ulcer D/C NN Start: 03/27/22 10:20 Freq: Status: Active Protocol: Activity Type Activity Date Activity User E-sign Co-sign Detail Recorded Client Recorded Date Recorded By Document 03/27/22 11:10 [facility] [id number] 03/27/22 11:10 [facility] Document 04/03/22 11:33 [facility] [id number] 04/03/22 11:33 BMF 03/27/22 04/03/22 11:10 11:33 Wound Care Nurse 3 10. L plantar cluster -Ulcer Cleansing Rinsed/ Rinsed/ Irrigated with Irrigated with Saline Saline -Foul Odor after Cleansing No No -Primary Dressing Applied Mepilex Border, Mepilex Border, Promogran Promogran Lotus Matter Lotus Matter -Mepilex Border 2 2 -Promogran Lotus Matter 1 1 Treatment Response Procedure Procedure Tolerated Well Tolerated Well Pain Scale: 0-10 Numeric Is Patient Pain Free? Yes Yes WC - Visit Discharge Discharge Condition Stable Stable Ambulatory Status Wheelchair Wheelchair Transportation Private Auto Private Auto Assessment/Plan Assessment/Plan (1) Pain in left ankle and joints of left foot: CODE(S): M25.572 - Pain in left ankle and joints of left foot (2) Blister (nonthermal), left foot, initial encounter: CODE(S): S90.822A - Blister (nonthermal), left foot, initial encounter (3) Chronic ulcer of left foot with necrosis of muscle: CODE(S): L97.523 - Non-pressure chronic ulcer of other part of left foot with necrosis of muscle (4) Chronic ulcer of left foot with fat layer exposed: CODE(S): L97.522 - Non-pressure chronic ulcer of other part of left foot with fat layer exposed (5) PAD (peripheral artery disease): CODE(S): I73.9 - Peripheral vascular disease, unspecified (6) Charcot's joint of left foot: CODE(S): M14.672 - Charcot's joint, left ankle and foot (7) Delayed wound healing: CODE(S): T14.8XXD - Other injury of unspecified body region, subsequent encounter PLAN: Plan Patient examined evaluated, all fine discussed patient in detail. Radiographs reviewed demonstrate plantar flexed deformity of the amputation site with the calcaneus and talus as well as residual navicular placed in a plantarflexed position deformity creating a plantar lateral ulceration at the site at the anterior lateral acute calcaneal tip. Achilles appears to be intact. Patient discussed with me and agreed detail that if her wound does not heal by the end of the year on 05/27/2022, she will proceed with below-knee amputation on the left side. I discussed in detail that residual deformity is likely limiting her ability to heal the wound as well as incomplete offloading of the left lower extremity. I discussed in great detail performing a potential Achilles tenotomy with splint ing in order to heal the site. I recommend complete nonweightbearing to left lower extremity. Left plantar foot wound was excisionally debrided down to including level of subcutaneous tissue of all nonviable tissue using tissue nippers and dermal curette. Hemostasis obtained with light compression. No anesthesia due to neuropathy. Patient tolerated procedure well. Pre and postdebridement measu rements document nursing notes. Will continue current dressings. Planning for total contact casting on the follow-up. Planning for wound debridement and Achilles tendon lengthening.
[2022-04-10 12:23] VITALS: BP 127/55; PULSE 71; TEMP 35.5
[2022-04-17 10:31] VITALS: BP 113/51; PULSE 78; RESP 16; TEMP 36.4
--- NOTE | 2022-04-17 11:46 | PCM.WC.PN ---
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 Patient denies constitutional symptoms. Patient notes that she is offloading it by staying predominantly in a wheelchair but she does transfer and put diffuse weight to her left foot. Patient denies any pain or any other complaints at this time. Objective Data Objective Data Vital Signs: Vital Signs Temp Pulse Resp BP O2 Del Method 97.6 F L 78 16 113/51 L Room Air 04/17/22 10:31 04/17/22 10:31 04/17/22 10:31 04/17/22 10:31 04/17/22 10:31 Oxygen Delivery Method Room Air Debridement Note Debridement Note Post-Debridement Measurements and Additional Note: Post-Debridement Measurements/Treatment - Nurse 1 - General Ulcer Assessment Start: 03/27/22 10:20 Freq: Status: Active Protocol: EUGENE Activity Type Activity Date Activity User E-sign Co-sign Detail Recorded Client Recorded Date Recorded By Document 03/27/22 10:20 [facility] [id number] 03/27/22 10:24 [facility] Document 04/03/22 10:50 [facility] [id number] 04/03/22 10:59 [facility] Document 04/10/22 12:23 [place] [id number] 04/10/22 12:26 [place] Document 04/17/22 10:31 [facility] [id number] 04/17/22 10:37 [facility] 03/27/22 04/03/22 04/10/22 10:20 10:50 12:23 - Today's Visit Information Type of service Follow-up Visit Follow-up Visit Follow-up Visit (Physician/SPECIAL EDUCATION INSTRUCTOR (Physician/SPECIAL EDUCATION INSTRUCTOR (Physician/SPECIAL EDUCATION INSTRUCTOR ) ) ) Arrival Mode Wheelchair Wheelchair Wheelchair Transfer Assistance None None Transfer Assist (Other) Patient Identification Verified (Name & Yes Yes No ) Patient Requires Transmission-Based No No No Precautions Safety Precautions NA Vital Signs Temperature (97.8 F-99.1 F) 97.1 F L 95.9 F L Temperature Source Temporal Temporal Pulse Rate (60-100) 72 76 71 Pulse Location Monitor Monitor Monitor Respiratory Rate (12-18) 16 16 Respiratory rate source Observation Observation Oxygen Delivery Method Room Air Room Air Blood Pressure (90/60-120/80) 135/57 H 125/63 H 127/55 H Blood Pressure Mean (mm Hg) 83 83 79 Source Monitor Monitor Monitor Position Sitting Sitting Blood Pressure Location Right Arm Right Arm History Since Last Visit- (Skip if this is Patient's initial visit) Have you changed medications since your No No No last visit? Any new allergies or adverse reactions No No No Had a fall/change in ADL's that may No No No increase risk of falls Signs or symptoms of abuse and/or No No No neglect since last visit Have you been in the hospital since your No No No last visit? Has dressing in place as prescribed Yes Yes Yes Has compression in place as prescribed N/A N/A Yes Has offloadiing in place as prescribed Yes N/A N/A Experienced any changes in pain level or No No No management Left Footwear Regular Shoe Right Footwear Regular Shoe Other Footwear SOCKS BOTH FEET SOCKS BLE Pain Scale: 0-10 Numeric Is Patient Pain Free? Yes Yes Yes 04/17/22 10:31 - Today's Visit Information Type of service Follow-up Visit (Physician/SPECIAL EDUCATION INSTRUCTOR ) Arrival Mode Wheelchair Transfer Assistance Other Transfer Assist (Other) stand by Patient Identification Verified (Name & Yes ) Patient Requires Transmission-Based No Precautions Safety Precautions Vital Signs Temperature (97.8 F-99.1 F) 97.6 F L Temperature Source Temporal Pulse Rate (60-100) 78 Pulse Location Monitor Respiratory Rate (12-18) 16 Respiratory rate source Observation Oxygen Delivery Method Room Air Blood Pressure (90/60-120/80) 113/51 L Blood Pressure Mean (mm Hg) 71 Source Monitor Position Sitting Blood Pressure Location Left Arm History Since Last Visit- (Skip if this is Patient's initial visit) Have you changed medications since your No last visit? Any new allergies or adverse reactions No Had a fall/change in ADL's that may No increase risk of falls Signs or symptoms of abuse and/or No neglect since last visit Have you been in the hospital since your No last visit? Has dressing in place as prescribed Yes Has compression in place as prescribed N/A Has offloadiing in place as prescribed Yes Experienced any changes in pain level or No management Left Footwear Other Footwear (Comment) Right Footwear Other Footwear (Comment) Other Footwear sock r foot, kerlix to left Pain Scale: 0-10 Numeric Is Patient Pain Free? Yes WC - Nurse 1 - General Ulcer Measurement Start: 03/27/22 10:20 Freq: Status: Active Protocol: Activity Type Activity Date Activity User E-sign Co-sign Detail Recorded Client Recorded Date Recorded By Document 03/27/22 10:20 [facility] [id number] 03/27/22 10:24 [facility] Document 04/03/22 10:50 [facility] [id number] 04/03/22 10:59 [facility] Document 04/10/22 12:23 [place] [id number] 04/10/22 12:26 [place] Document 04/17/22 10:31 [facility] [id number] 04/17/22 10:37 [facility] Edit Result 04/17/22 10:31 BMF (1) [id number] 04/17/22 10:38 [facility] (1) 10. L plantar cluster - Undermining/Tunneling No => Yes - Undermining/Tunneling Starts (O'clock) => 9 - Undermining/Tunneling Ends (O'clock) => 5 - Maximum Distance (cm) => 0.4 03/27/22 04/03/22 04/10/22 10:20 10:50 12:23 Wound Center Nurse 1 10. L plantar cluster -Combined with other wound No No -Current Size (cm) - Length 0.8 1.3 1 -Current Size (cm) - Width 1 1.2 1.2 -Current Size (cm) - Depth 0.7 0.8 1 -Total Square Cm 0.8 1.56 1.2 -Date of Last Picture (Recall this 03/27/22 04/03/22 04/10/22 field) -Photo Taken Yes Yes Yes -Epithelialization None Present None Present -Tunneling No No No -Undermining/Tunneling No Yes No -Undermining/Tunneling Starts (O'clock 12 ) -Undermining/Tunneling Ends (O'clock) 3 -Maximum Distance (cm) 0.2 -Circular Undermining No No No -Change in Wound Grade/Stage No -Exudate Amt Medium Medium Medium -Exudate Type Serosanguineous Serosanguineous Serosanguineous -Wound Margin Distinct, Distinct, Distinct, Outline Outline Outline Attached Attached Attached -Granulation Amt Large (67-100%) Large (67-100%) -Granulation Quality Red Pale,Red N/A -Slough/Fibrin Yes Yes Yes -Necrosis Amt Small (1-33%) Medium (34-66%) Small (1-33%) -Necrotic Tissue Type Adherent Slough Adherent Slough Adherent Slough -Structure Exposed N/A -Texture (Shannon-wound Skin Appearance) Assessed, Assessed, No Abnormality, Scarring Scarring Assessed -Moisture (Shannon-wound Skin Appearance) Assessed, Assessed No Abnormality, Maceration Assessed -Color (Shannon-wound Skin Appearance) Assessed,Palor Assessed No Abnormality, Assessed -Temperature (Shannon-wound Skin No Abnormality No Abnormality No Abnormality Appearance) (Pt Warm) (Pt Warm) (Pt Warm) -Tenderness on Palpation (Shannon-wound Yes No No Skin Appearance) -Ulcer Cleansing Rinsed/ Soap and Water Rinsed/ Irrigated with Irrigated with Saline Saline -Foul Odor after Cleansing No No No -Anesthetic Used 4% Lidocaine 5% Lidocaine 5% Lidocaine Solution Gel Gel Lower Limb Edema Present Yes Right Calf (cm) 33.3 Right Ankle (cm) 20.2 04/17/22 10:31 Wound Center Nurse 1 10. L plantar cluster -Combined with other wound No -Current Size (cm) - Length 1.2 -Current Size (cm) - Width 1.2 -Current Size (cm) - Depth 0.8 -Total Square Cm 1.44 -Date of Last Picture (Recall this 04/17/22 field) -Photo Taken Yes -Epithelialization None Present -Tunneling No -Undermining/Tunneling Yes -Undermining/Tunneling Starts (O'clock 9 ) -Undermining/Tunneling Ends (O'clock) 5 -Maximum Distance (cm) 0.4 -Circular Undermining -Change in Wound Grade/Stage -Exudate Amt Medium -Exudate Type Serosanguineous -Wound Margin Distinct, Outline Attached -Granulation Amt Large (67-100%) -Granulation Quality Red -Slough/Fibrin Yes -Necrosis Amt Small (1-33%) -Necrotic Tissue Type Adherent Slough -Structure Exposed -Texture (Shannon-wound Skin Appearance) Assessed,Callus ,Scarring -Moisture (Shannon-wound Skin Appearance) Assessed,Dry/ Scaly -Color (Shannon-wound Skin Appearance) Assessed -Temperature (Shannon-wound Skin No Abnormality Appearance) (Pt Warm) -Tenderness on Palpation (Shannon-wound Yes Skin Appearance) -Ulcer Cleansing Rinsed/ Irrigated with Saline -Foul Odor after Cleansing No -Anesthetic Used 5% Lidocaine Gel Lower Limb Edema Present Right Calf (cm) Right Ankle (cm) WC - Nurse 2 - General Ulcer CM Notes Start: 03/27/22 10:20 Freq: Status: Active Protocol: Activity Type Activity Date Activity User E-sign Co-sign Detail Recorded Client Recorded Date Recorded By Document 03/27/22 10:49 [id number] 03/27/22 10:54 Document 04/03/22 11:22 [id number] 04/03/22 11:23 Document 04/10/22 11:05 [id number] 04/10/22 11:07 Document 04/17/22 11:08 [id number] 04/17/22 11:09 03/27/22 04/03/22 04/10/22 10:49 11:22 11:05 Wound Center Nurse 2 10. L plantar cluster -Time 10:50 11:22 11:06 -Correct Patient Yes Yes Yes -Correct Side, Site, Position Yes Yes Yes -Correct Procedure Yes Yes Yes -Procedure Performed Yes Yes Yes -Type of Procedure Debridement Debridement Debridement -Clinical Debridement Subcutaneous Subcutaneous Subcutaneous -Tissue Removed Subcutaneous Subcutaneous Subcutaneous -Post Debridement (cm) - Length 1.8 1.3 1.3 -Post Debridement (cm) - Width 1.9 0.3 1.4 -Post Debridement (cm) - Depth 1.5 0.8 0.8 -Total Square (Post) (cm) 3.42 0.39 1.82 -Area of Debridement (cm) - Length 1.8 1.3 1.3 -Area of Debridement (cm) - Width 1.9 1.3 1.4 -Total Square (Area) (cm) 3.42 1.69 1.82 -Tunneling No No No -Undermining/Tunneling No No No -Circular Undermining No No No -Wound/Ulcer Outcome Not Healed Not Healed Not Healed -Ulcer Cleansing Rinsed/ Rinsed/ Rinsed/ Irrigated with Irrigated with Irrigated with Saline Saline Saline -Foul Odor after Cleansing No No No -Bioengineered Tissue No No No -Bleeding Controlled with Pressure Pressure Pressure -Treatment Response Procedure Procedure Procedure Tolerated Well Tolerated Well Tolerated Well -Offloading Yes Yes Yes -Type of Offloading Knee Walker Surgical Shoe Knee Walker -Assistive Device(s) Wheelchair -Debridement - Subq, 1st 20sq cm Yes Yes Yes Pain Scale: 0-10 Numeric Is Patient Pain Free? Yes Yes Yes 04/17/22 11:08 Wound Center Nurse 2 10. L plantar cluster -Time 11:08 -Correct Patient Yes -Correct Side, Site, Position Yes -Correct Procedure Yes -Procedure Performed Yes -Type of Procedure Debridement -Clinical Debridement Subcutaneous -Tissue Removed Subcutaneous -Post Debridement (cm) - Length 1.2 -Post Debridement (cm) - Width 1.3 -Post Debridement (cm) - Depth 0.8 -Total Square (Post) (cm) 1.56 -Area of Debridement (cm) - Length 1.2 -Area of Debridement (cm) - Width 1.3 -Total Square (Area) (cm) 1.56 -Tunneling No -Undermining/Tunneling No -Circular Undermining No -Wound/Ulcer Outcome Not Healed -Ulcer Cleansing Rinsed/ Irrigated with Saline -Foul Odor after Cleansing No -Bioengineered Tissue No -Bleeding Controlled with Pressure -Treatment Response Procedure Tolerated Well -Offloading Yes -Type of Offloading Knee Walker -Assistive Device(s) Wheelchair -Debridement - Subq, 1st 20sq cm Yes Pain Scale: 0-10 Numeric Is Patient Pain Free? Yes - Nurse 3 - General Ulcer D/C NN Start: 03/27/22 10:20 Freq: Status: Active Protocol: Activity Type Activity Date Activity User E-sign Co-sign Detail Recorded Client Recorded Date Recorded By Document 03/27/22 11:10 [facility] [id number] 03/27/22 11:10 [facility] Document 04/03/22 11:33 [facility] [id number] 04/03/22 11:33 [facility] Document 04/10/22 12:23 [place] [id number] 04/10/22 12:26 [place] Document 04/17/22 11:18 DL [id number] 04/17/22 11:20 DL 03/27/22 04/03/22 04/10/22 11:10 11:33 12:23 Wound Care Nurse 3 10. L plantar cluster -Ulcer Cleansing Rinsed/ Rinsed/ Rinsed/ Irrigated with Irrigated with Irrigated with Saline Saline Saline -Foul Odor after Cleansing No No -Primary Dressing Applied Mepilex Border, Mepilex Border, Mepilex Border, Promogran Promogran Promogran Lotus Matter Lotus Matter Lotus Matter -Primary Dressing Covered/Secured with -Mepilex Border 2 2 1 -Promogran Lotus Matter 1 1 1 Treatment Response Procedure Procedure Tolerated Well Tolerated Well Vital Signs Temperature (97.8 F-99.1 F) 95.9 F L Temperature Source Temporal Pulse Rate (60-100) 71 Pulse Location Monitor Blood Pressure (90/60-120/80) 127/55 H Blood Pressure Mean (mm Hg) 79 Source Monitor Pain Scale: 0-10 Numeric Is Patient Pain Free? Yes Yes Yes WC - Visit Discharge Discharge Condition Stable Stable Stable Ambulatory Status Wheelchair Wheelchair Wheelchair Transportation Private Auto Private Auto Private Auto Medication Reconcilliation completed & Yes provided to patient/care provider Clinical Summary of Care Provided Yes Notes: 04/17/22 11:18 Wound Care Nurse 3 10. L plantar cluster -Ulcer Cleansing Rinsed/ Irrigated with Saline -Foul Odor after Cleansing No -Primary Dressing Applied Promogran Lotus Matter -Primary Dressing Covered/Secured with Dry Gauze & Roll Gauze, Secured with Tape -Mepilex Border -Promogran Lotus Matter 1 Treatment Response Procedure Tolerated Well Vital Signs Temperature (97.8 F-99.1 F) Temperature Source Pulse Rate (60-100) Pulse Location Blood Pressure (90/60-120/80) Blood Pressure Mean (mm Hg) Source Pain Scale: 0-10 Numeric Is Patient Pain Free? Yes WC - Visit Discharge Discharge Condition Stable Ambulatory Status Wheelchair Transportation Private Auto Medication Reconcilliation completed & provided to patient/care provider Clinical Summary of Care Provided Notes: Dressing applied per Ladonna Fajardo today in clinic Assessment/Plan Assessment/Plan (1) Pain in left ankle and joints of left foot: CODE(S): M25.572 - Pain in left ankle and joints of left foot (2) Blister (nonthermal), left foot, initial encounter: CODE(S): S90.822A - Blister (nonthermal), left foot, initial encounter (3) Chronic ulcer of left foot with necrosis of muscle: CODE(S): L97.523 - Non-pressure chronic ulcer of other part of left foot with necrosis of muscle (4) Chronic ulcer of left foot with fat layer exposed: CODE(S): L97.522 - Non-pressure chronic ulcer of other part of left foot with fat layer exposed (5) PAD (peripheral artery disease): CODE(S): I73.9 - Peripheral vascular disease, unspecified (6) Charcot's joint of left foot: CODE(S): M14.672 - Charcot's joint, left ankle and foot (7) Delayed wound healing: CODE(S): T14.8XXD - Other injury of unspecified body region, subsequent encounter PLAN: Plan Patient examined evaluated, all fine discussed patient in detail. Radiographs reviewed demonstrate plantar flexed deformity of the amputation site with the calcaneus and talus as well as residual navicular placed in a plantarflexed position deformity creating a plantar lateral ulceration at the site at the anterior lateral acute calcaneal tip. Achilles appears to be intact. Patient consented for surgery, all inherent risks/benefits, alternative treatments and post operative course discussed in detail. Patient discussed with me and agreed detail that if her wound does not heal by the end of the year on 05/27/2022, she will proceed with below-knee amputation on the left side. I discussed in detail that residual deformity is likely limiting her ability to heal the wound as well as incomplete offloading of the left lower extremity. I discussed in great detail performing a potential Achilles tenotomy with splinting in order to heal the site. I recommend complete nonweightbearing to left lower extremity. Left plantar foot wound was excisionally debrided down to including level of subcutaneous tissue of all nonviable tissue using tissue nippers and dermal curette. Hemostasis obtained with light compression. No anesthesia due to neuropathy. Patient tolerated procedure well. Pre and postdebridement measurements document nursing notes. Will continue current dressings. Planning for total contact casting on the follow-up. Planning for wound debridement and Achilles tendon lengthening 05/04/22.
[2022-04-24 10:49] VITALS: BP 127/50; PULSE 61; RESP 16; TEMP 36
--- NOTE | 2022-04-24 11:43 | PN.PCM_ITS ---
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 Patient denies constitutional symptoms. Patient notes that she is offloading it by staying predominantly in a wheelchair but she does transfer and put diffuse weight to her left foot. Patient denies any pain or any other complaints at this time. Objective Data Objective Data Vital Signs: Vital Signs Temp Pulse Resp BP O2 Del Method 96.8 F L 61 16 127/50 H Room Air 04/24/22 10:49 04/24/22 10:49 04/24/22 10:49 04/24/22 10:49 04/24/22 10:49 Oxygen Delivery Method Room Air Physical Exam Narrative Left foot:? Chopart amputation plantar central foot ulcer has no direct probe to bone, necrosis,?odor, erythema, or purulence noted.? Reduced depth noted.? There is no cellulitis, no fluctuance or bogginess to the left foot.?Negative Claudio and Elizondo sign left.? Compartments remain soft to palpate left lower extremity.?DP? 2/4, left. deep probing noted.? ulcer bed with granular base.? granular base - decreased size noted Pain with palpation to medial malleolus and medial hindfoot along the posterior tibial tendon.? No laxity crepitus or pain with anterior drawer manipulation.? No pain on palpation to lateral malleoli or anterior joint line.? No pain with heel compression.? No pain on palpation to the remaining midfoot bones.? The compartments remain soft and there is no skin tenting. Const alert, oriented x3 and no apparent distress Lymph Lymphatic: no lymphadenopathy noted and no lymphedema noted Resp normal respiratory effort Cardio regular rate and regular rhythm Extremity no joint enlargement and no calf tenderness Skin no rashes or lesions noted, skin turgor normal and no jaundice Wound Narrative: Plantar lateral ulceration to the Chopart amputation stump of the left lower extremity. There is slight maceration periwound. Ulceration demonstrates red, beefy, granular layer with serosanguineous drainage. Neuro moves all extremities Debridement Note Debridement Note Post-Debridement Measurements and Additional Note: Post-Debridement Measurements/Treatment WC - Nurse 1 - General Ulcer Assessment Start: 03/27/22 10:20 Freq: Status: Active Protocol: WC.LOWEXT Activity Type Activity Date Activity User E-sign Co-sign Detail Recorded Client Recorded Date Recorded By Document 03/27/22 10:20 [facility] [id number] 03/27/22 10:24 BM Document 04/03/22 10:50 [facility] [id number] 04/03/22 10:59 BM Document 04/10/22 12:23 [place] [id number] 04/10/22 12:26 [place] Document 04/17/22 10:31 BM [id number] 04/17/22 10:37 [facility] Document 04/24/22 10:49 [facility] [id number] 04/24/22 10:52 [facility] 03/27/22 04/03/22 04/10/22 10:20 10:50 12:23 - Today's Visit Information Type of service Follow-up Visit Follow-up Visit Follow-up Visit (Physician/ART MUSEUM DOCENT (Physician/ART MUSEUM DOCENT (Physician/ART MUSEUM DOCENT ) ) ) Arrival Mode Wheelchair Wheelchair Wheelchair Transfer Assistance None None Transfer Assist (Other) Patient Identification Verified (Name & Yes Yes No ) Patient Requires Transmission-Based No No No Precautions Safety Precautions NA Vital Signs Temperature (97.8 F-99.1 F) 97.1 F L 95.9 F L Temperature Source Temporal Temporal Pulse Rate (60-100) 72 76 71 Pulse Location Monitor Monitor Monitor Respiratory Rate (12-18) 16 16 Respiratory rate source Observation Observation Oxygen Delivery Method Room Air Room Air Blood Pressure (90/60-120/80) 135/57 H 125/63 H 127/55 H Blood Pressure Mean (mm Hg) 83 83 79 Source Monitor Monitor Monitor Position Sitting Sitting Blood Pressure Location Right Arm Right Arm History Since Last Visit- (Skip if this is Patient's initial visit) Have you changed medications since your No No No last visit? Any new allergies or adverse reactions No No No Had a fall/change in ADL's that may No No No increase risk of falls Signs or symptoms of abuse and/or No No No neglect since last visit Have you been in the hospital since your No No No last visit? Has dressing in place as prescribed Yes Yes Yes Has compression in place as prescribed N/A N/A Yes Has offloadiing in place as prescribed Yes N/A N/A Experienced any changes in pain level or No No No management Left Footwear Regular Shoe Right Footwear Regular Shoe Other Footwear SOCKS BOTH FEET SOCKS BLE Pain Scale: 0-10 Numeric Is Patient Pain Free? Yes Yes Yes 04/17/22 04/24/22 10:31 10:49 - Today's Visit Information Type of service Follow-up Visit Follow-up Visit (Physician/ART MUSEUM DOCENT (Physician/ART MUSEUM DOCENT ) ) Arrival Mode Wheelchair Wheelchair Transfer Assistance Other Other Transfer Assist (Other) stand by STAND BY Patient Identification Verified (Name & Yes Yes ) Patient Requires Transmission-Based No No Precautions Safety Precautions Vital Signs Temperature (97.8 F-99.1 F) 97.6 F L 96.8 F L Temperature Source Temporal Temporal Pulse Rate (60-100) 78 61 Pulse Location Monitor Monitor Respiratory Rate (12-18) 16 16 Respiratory rate source Observation Observation Oxygen Delivery Method Room Air Room Air Blood Pressure (90/60-120/80) 113/51 L 127/50 H Blood Pressure Mean (mm Hg) 71 75 Source Monitor Monitor Position Sitting Sitting Blood Pressure Location Left Arm Left Arm History Since Last Visit- (Skip if this is Patient's initial visit) Have you changed medications since your No No last visit? Any new allergies or adverse reactions No No Had a fall/change in ADL's that may No No increase risk of falls Signs or symptoms of abuse and/or No No neglect since last visit Have you been in the hospital since your No No last visit? Has dressing in place as prescribed Yes Yes Has compression in place as prescribed N/A N/A Has offloadiing in place as prescribed Yes Yes Experienced any changes in pain level or No No management Left Footwear Other Footwear (Comment) Right Footwear Other Footwear (Comment) Other Footwear sock r foot, SOCKS JUAN FEET kerlix to left Pain Scale: 0-10 Numeric Is Patient Pain Free? Yes Yes - Nurse 1 - General Ulcer Measurement Start: 03/27/22 10:20 Freq: Status: Active Protocol: Activity Type Activity Date Activity User E-sign Co-sign Detail Recorded Client Recorded Date Recorded By Document 03/27/22 10:20 [facility] [id number] 03/27/22 10:24 [facility] Document 04/03/22 10:50 [facility] [id number] 04/03/22 10:59 [facility] Document 04/10/22 12:23 AK [id number] 04/10/22 12:26 AK Document 04/17/22 10:31 BMF [id number] 04/17/22 10:37 BMF Edit Result 04/17/22 10:31 BMF (1) [id number] 04/17/22 10:38 BMF Document 04/24/22 10:49 BMF [id number] 04/24/22 10:52 BMF (1) 10. L plantar cluster - Undermining/Tunneling No => Yes - Undermining/Tunneling Starts (O'clock) => 9 - Undermining/Tunneling Ends (O'clock) => 5 - Maximum Distance (cm) => 0.4 03/27/22 04/03/22 04/10/22 10:20 10:50 12:23 Wound Center Nurse 1 10. L plantar cluster -Combined with other wound No No -Current Size (cm) - Length 0.8 1.3 1 -Current Size (cm) - Width 1 1.2 1.2 -Current Size (cm) - Depth 0.7 0.8 1 -Total Square Cm 0.8 1.56 1.2 -Date of Last Picture (Recall this 03/27/22 04/03/22 04/10/22 field) -Photo Taken Yes Yes Yes -Epithelialization None Present None Present -Tunneling No No No -Undermining/Tunneling No Yes No -Undermining/Tunneling Starts (O'clock 12 ) -Undermining/Tunneling Ends (O'clock) 3 -Maximum Distance (cm) 0.2 -Circular Undermining No No No -Change in Wound Grade/Stage No -Exudate Amt Medium Medium Medium -Exudate Type Serosanguineous Serosanguineous Serosanguineous -Wound Margin Distinct, Distinct, Distinct, Outline Outline Outline Attached Attached Attached -Granulation Amt Large (67-100%) Large (67-100%) -Granulation Quality Red Pale,Red N/A -Slough/Fibrin Yes Yes Yes -Necrosis Amt Small (1-33%) Medium (34-66%) Small (1-33%) -Necrotic Tissue Type Adherent Slough Adherent Slough Adherent Slough -Structure Exposed N/A -Texture (Shannon-wound Skin Appearance) Assessed, Assessed, No Abnormality, Scarring Scarring Assessed -Moisture (Shannon-wound Skin Appearance) Assessed, Assessed No Abnormality, Maceration Assessed -Color (Shannon-wound Skin Appearance) Assessed,Palor Assessed No Abnormality, Assessed -Temperature (Shannon-wound Skin No Abnormality No Abnormality No Abnormality Appearance) (Pt Warm) (Pt Warm) (Pt Warm) -Tenderness on Palpation (Shannon-wound Yes No No Skin Appearance) -Ulcer Cleansing Rinsed/ Soap and Water Rinsed/ Irrigated with Irrigated with Saline Saline -Foul Odor after Cleansing No No No -Anesthetic Used 4% Lidocaine 5% Lidocaine 5% Lidocaine Solution Gel Gel Lower Limb Edema Present Yes Right Calf (cm) 33.3 Right Ankle (cm) 20.2 04/17/22 04/24/22 10:31 10:49 Wound Center Nurse 1 10. L plantar cluster -Combined with other wound No No -Current Size (cm) - Length 1.2 1.4 -Current Size (cm) - Width 1.2 1.4 -Current Size (cm) - Depth 0.8 0.8 -Total Square Cm 1.44 1.96 -Date of Last Picture (Recall this 04/17/22 04/24/22 field) -Photo Taken Yes Yes -Epithelialization None Present None Present -Tunneling No No -Undermining/Tunneling Yes No -Undermining/Tunneling Starts (O'clock 9 ) -Undermining/Tunneling Ends (O'clock) 5 -Maximum Distance (cm) 0.4 -Circular Undermining No -Change in Wound Grade/Stage -Exudate Amt Medium Medium -Exudate Type Serosanguineous Serosanguineous -Wound Margin Distinct, Thickened Outline Attached -Granulation Amt Large (67-100%) Large (67-100%) -Granulation Quality Red Pale,Red -Slough/Fibrin Yes Yes -Necrosis Amt Small (1-33%) Small (1-33%) -Necrotic Tissue Type Adherent Slough Adherent Slough -Structure Exposed -Texture (Shannon-wound Skin Appearance) Assessed,Callus Assessed,Callus ,Scarring ,Scarring -Moisture (Shannon-wound Skin Appearance) Assessed,Dry/ Assessed Scaly -Color (Shannon-wound Skin Appearance) Assessed Assessed -Temperature (Shannon-wound Skin No Abnormality No Abnormality Appearance) (Pt Warm) (Pt Warm) -Tenderness on Palpation (Shannon-wound Yes No Skin Appearance) -Ulcer Cleansing Rinsed/ Rinsed/ Irrigated with Irrigated with Saline Saline -Foul Odor after Cleansing No No -Anesthetic Used 5% Lidocaine 5% Lidocaine Gel Gel Lower Limb Edema Present Right Calf (cm) Right Ankle (cm) WC - Nurse 2 - General Ulcer CM Notes Start: 03/27/22 10:20 Freq: Status: Active Protocol: Activity Type Activity Date Activity User E-sign Co-sign Detail Recorded Client Recorded Date Recorded By Document 03/27/22 10:49 [id number] 03/27/22 10:54 Document 04/03/22 11:22 [id number] 04/03/22 11:23 Document 04/10/22 11:05 [id number] 04/10/22 11:07 Document 04/17/22 11:08 [id number] 04/17/22 11:09 Document 04/24/22 11:14 [id number] 04/24/22 11:16 03/27/22 04/03/22 04/10/22 10:49 11:22 11:05 Wound Center Nurse 2 10. L plantar cluster -Time 10:50 11:22 11:06 -Correct Patient Yes Yes Yes -Correct Side, Site, Position Yes Yes Yes -Correct Procedure Yes Yes Yes -Procedure Performed Yes Yes Yes -Type of Procedure Debridement Debridement Debridement -Clinical Debridement Subcutaneous Subcutaneous Subcutaneous -Tissue Removed Subcutaneous Subcutaneous Subcutaneous -Post Debridement (cm) - Length 1.8 1.3 1.3 -Post Debridement (cm) - Width 1.9 0.3 1.4 -Post Debridement (cm) - Depth 1.5 0.8 0.8 -Total Square (Post) (cm) 3.42 0.39 1.82 -Area of Debridement (cm) - Length 1.8 1.3 1.3 -Area of Debridement (cm) - Width 1.9 1.3 1.4 -Total Square (Area) (cm) 3.42 1.69 1.82 -Tunneling No No No -Undermining/Tunneling No No No -Circular Undermining No No No -Wound/Ulcer Outcome Not Healed Not Healed Not Healed -Ulcer Cleansing Rinsed/ Rinsed/ Rinsed/ Irrigated with Irrigated with Irrigated with Saline Saline Saline -Foul Odor after Cleansing No No No -Bioengineered Tissue No No No -Bleeding Controlled with Pressure Pressure Pressure -Treatment Response Procedure Procedure Procedure Tolerated Well Tolerated Well Tolerated Well -Offloading Yes Yes Yes -Type of Offloading Knee Walker Surgical Shoe Knee Walker -Assistive Device(s) Wheelchair -Debridement - Subq, 1st 20sq cm Yes Yes Yes Pain Scale: 0-10 Numeric Is Patient Pain Free? Yes Yes Yes 04/17/22 04/24/22 11:08 11:14 Wound Center Nurse 2 10. L plantar cluster -Time 11:08 11:15 -Correct Patient Yes Yes -Correct Side, Site, Position Yes Yes -Correct Procedure Yes Yes -Procedure Performed Yes Yes -Type of Procedure Debridement Debridement -Clinical Debridement Subcutaneous Subcutaneous -Tissue Removed Subcutaneous Subcutaneous -Post Debridement (cm) - Length 1.2 1.5 -Post Debridement (cm) - Width 1.3 1.5 -Post Debridement (cm) - Depth 0.8 0.8 -Total Square (Post) (cm) 1.56 2.25 -Area of Debridement (cm) - Length 1.2 1.5 -Area of Debridement (cm) - Width 1.3 1.5 -Total Square (Area) (cm) 1.56 2.25 -Tunneling No No -Undermining/Tunneling No No -Circular Undermining No No -Wound/Ulcer Outcome Not Healed Not Healed -Ulcer Cleansing Rinsed/ Rinsed/ Irrigated with Irrigated with Saline Saline -Foul Odor after Cleansing No No -Bioengineered Tissue No No -Bleeding Controlled with Pressure Pressure -Treatment Response Procedure Procedure Tolerated Well Tolerated Well -Offloading Yes Yes -Type of Offloading Knee Walker Knee Walker -Assistive Device(s) Wheelchair -Debridement - Subq, 1st 20sq cm Yes Yes Pain Scale: 0-10 Numeric Is Patient Pain Free? Yes Yes - Nurse 3 - General Ulcer D/C NN Start: 03/27/22 10:20 Freq: Status: Active Protocol: Activity Type Activity Date Activity User E-sign Co-sign Detail Recorded Client Recorded Date Recorded By Document 03/27/22 11:10 [facility] [id number] 03/27/22 11:10 [facility] Document 04/03/22 11:33 [facility] [id number] 04/03/22 11:33 [facility] Document 04/10/22 12:23 [place] [id number] 04/10/22 12:26 AK Document 04/17/22 11:18 DL [id number] 04/17/22 11:20 DL Document 04/24/22 11:27 [facility] [id number] 04/24/22 11:28 [facility] 03/27/22 04/03/22 04/10/22 11:10 11:33 12:23 Wound Care Nurse 3 10. L plantar cluster -Ulcer Cleansing Rinsed/ Rinsed/ Rinsed/ Irrigated with Irrigated with Irrigated with Saline Saline Saline -Foul Odor after Cleansing No No -Negative Pressure Wound Therapy -Primary Dressing Applied Mepilex Border, Mepilex Border, Mepilex Border, Promogran Promogran Promogran Lotus Matter Lotus Matter Lotus Matter -Primary Dressing Covered/Secured with -Mepilex Border 2 2 1 -Promogran Lotus Matter 1 1 1 Treatment Response Procedure Procedure Tolerated Well Tolerated Well Vital Signs Temperature (97.8 F-99.1 F) 95.9 F L Temperature Source Temporal Pulse Rate (60-100) 71 Pulse Location Monitor Blood Pressure (90/60-120/80) 127/55 H Blood Pressure Mean (mm Hg) 79 Source Monitor Pain Scale: 0-10 Numeric Is Patient Pain Free? Yes Yes Yes Teaching: Wound Center Dressing Your Wound -Person Taught -Teaching Method -Response to teaching WC - Visit Discharge Discharge Condition Stable Stable Stable Ambulatory Status Wheelchair Wheelchair Wheelchair Transportation Private Auto Private Auto Private Auto Accompanied by Medication Reconcilliation completed & Yes provided to patient/care provider Clinical Summary of Care Provided Yes Notes: 04/17/22 04/24/22 11:18 11:27 Wound Care Nurse 3 10. L plantar cluster -Ulcer Cleansing Rinsed/ Rinsed/ Irrigated with Irrigated with Saline Saline -Foul Odor after Cleansing No No -Negative Pressure Wound Therapy N/A -Primary Dressing Applied Promogran Mepilex Border, Lotus Matter Promogran Lotus Matter -Primary Dressing Covered/Secured with Dry Gauze & Roll Gauze, Secured with Tape -Mepilex Border 1 -Promogran Lotus Matter 1 1 Treatment Response Procedure Procedure Tolerated Well Tolerated Well Vital Signs Temperature (97.8 F-99.1 F) Temperature Source Pulse Rate (60-100) Pulse Location Blood Pressure (90/60-120/80) Blood Pressure Mean (mm Hg) Source Pain Scale: 0-10 Numeric Is Patient Pain Free? Yes Yes Teaching: Wound Center Dressing Your Wound -Person Taught Patient -Teaching Method Discussion, Demonstration -Response to teaching Verbalize understanding WC - Visit Discharge Discharge Condition Stable Stable Ambulatory Status Wheelchair Walker Transportation Private Auto Private Auto Accompanied by Medication Reconcilliation completed & No provided to patient/care provider Clinical Summary of Care Provided Yes Notes: Dressing applied per Ladonna Fajardo today in clinic Assessment/Plan Assessment/Plan (1) Pain in left ankle and joints of left foot: CODE(S): M25.572 - Pain in left ankle and joints of left foot (2) Blister (nonthermal), left foot, initial encounter: CODE(S): S90.822A - Blister (nonthermal), left foot, initial encounter (3) Chronic ulcer of left foot with necrosis of muscle: CODE(S): L97.523 - Non-pressure chronic ulcer of other part of left foot with necrosis of muscle (4) Chronic ulcer of left foot with fat layer exposed: CODE(S): L97.522 - Non-pressure chronic ulcer of other part of left foot with fat layer exposed (5) PAD (peripheral artery disease): CODE(S): I73.9 - Peripheral vascular disease, unspecified (6) Charcot's joint of left foot: CODE(S): M14.672 - Charcot's joint, left ankle and foot (7) Delayed wound healing: CODE(S): T14.8XXD - Other injury of unspecified body region, subsequent encounter PLAN: Plan Patient examined evaluated, all fine discussed patient in detail. Radiographs reviewed demonstrate plantar flexed deformity of the amputation site with the calcaneus and talus as well as residual navicular placed in a plantarflexed position deformity creating a plantar lateral ulceration at the site at the anterior lateral acute calcaneal tip. Achilles appears to be intact. Patient consented for surgery, all inherent risks/benefits, alternative treatments and post operative course discussed in detail. Patient discussed with me and agreed detail that if her wound does not heal by the end of the year on 05/27/2022, she will proceed with below-knee amputation on the left side. I discussed in detail that residual deformity is likely limiting her ability to heal the wound as well as incomplete offloading of the left lower extremity. I discussed in great detail performing a potential Achilles tenotomy with splinting in order to heal the site. I recommend complete nonweightbearing to left lower extremity. Left plantar foot wound was excisionally debrided down to including level of subcutaneous tissue of all nonviable tissue using tissue nippers and dermal curette. Hemostasis obtained with light compression. No anesthesia due to neuropathy. Patient tolerated procedure well. Pre and postdebridement measurements document nursing notes. Will continue current dressings. Planning for total contact casting on the follow-up. Planning for wound debridement and Achilles tendon lengthening 05/04/22.
== END 2022-04-25 23:59 | disposition home or self-care (01) ==
LOC: WC 10:45
PROVIDERS: PCP Family Medicine; Referring Provider Podiatrist; Visit Provider Podiatrist
DX: T87.89 Other complications of amputation stump (principal); E11.51 Type 2 diabetes mellitus with diabetic peripheral angiopathy without gangrene; L97.523 Non-pressure chronic ulcer of other part of left foot with necrosis of muscle; E11.40 Type 2 diabetes mellitus with diabetic neuropathy, unspecified; Z79.4 Long term (current) use of insulin; Y83.5 Amputation of limb(s) as the cause of abnormal reaction of the patient, or of later complication, without mention of misadventure at the time of the procedure; S90.822D Blister (nonthermal), left foot, subsequent encounter; M14.672 Charcot's joint, left ankle and foot; M25.572 Pain in left ankle and joints of left foot; Z79.02 Long term (current) use of antithrombotics/antiplatelets; Z79.890 Hormone replacement therapy; Z79.899 Other long term (current) drug therapy
CPT/HCPCS: 11042; 93923

== ENCOUNTER 2022-04-24 12:00 | Outpatient (RCR) | payer MEDICARE, OTHER, SELFPAY ==
--- NOTE | 2022-02-22 12:41 | HP.PTEVAL_ITS ---
Patient's Visit Information SEBASTIÁN REYES is a 76 year old F referred to Physical Therapy by Dr. Con Johnson MD with a diagnosis of NECK PAIN. Date of Evaluation: 02/22/22 Physical Therapist: Judson Sun, PT, Cert MDT, OCS - Visit Plan Frequency: 2x /Week Duration: 4 Weeks Plan: PT INTERVENTIONS MANUAL THERAPY STM,US/P ,CERVICAL ROM / POSTURAL EX'S, AND STRENGTHEING - Subjective This 76 y/o female presents to physical therapy with neck pain. Patient has cervical pain for several years . Patient had cervical fusion ~ 15 years ago. Patient fell last year and had a left shoulder fracture which , potentially caused neck pain which has progressively. Patient has seen Dr Malhotra 2 months ago had injection and aplasia of nerves. MEDS hydrocodone. Located at cervical with radicular symptoms in arms and hands. Patient has h/o foot amputation's metatarsal's. Thus patient uses kneeling walker for gait and today arrived in manual w/c. Patient currently has ulcer left foot ,with patient had debridement at wound clinic 02/21. Patient c/o paresthesia in hands . Denies GUILLORY ,dizziness/nausea/tinnitus. Patient has difficulty sleeping. Tried Tens at home which made symptoms worse. Aggravating factors turning neck ,extension ,lifting. Alleviating factors rest cp. Patient has lift chair ,assist to shower chair and had rail in bathroom. Patient has electric w/c ,manual w/c and ramp to enter home ,uses scooter for community mobility. Patient spouse assist with bathing and dressing .Patient condition affects QOL and function and ADLS. Patient has had no rent diagnostics. Patient has multiple comorbities to contribute to condtion. SOCIAL: . VOCATION: retired - Pain Bilateral Neck Pain Intensity (Out of 10): 4 Pain Intensity Range: 10 Bilateral Shoulder Pain Intensity (Out of 10): 3 Pain Intensity Range: 10 - Objective POSTURE: mild forward posture ,protruded head. PALPATION: tender UT/levator /paraspinals. NEURO: denies paresthesia/tingling ,reflexes C5-6-7 1/. AROM BUE: WFL. MMT: grossly 4/5 except right shoulder 4-/5,left 3+/5. CERVICAL ROM: flexion WFL, extension/lateral flexion mod/severe loss ,rotation mod loss. ACCOUNT RESOLUTION SPECIALIST STRENGTH: dynameter: 20# - Special Tests C/S Radiculapathy - Left Upper limb tension test: Negative C/S Radiculapathy - Right Upper limb tension test: Negative Sharp Denisa: Negative Vertebral Artery Test: Negative Alar Ligament Test: Negative - Balance/Special Test Scores Oswestry Neck Score: 36 - Goals Goal 1:: I with HEP for posture and neck to manage symptoms Goal Time Frame: 4-6 Weeks Goal 2:: Improve sitting posture for ADL's 90% of the time. Goal Time Frame: 4-6 Weeks Goal 3:: Patient to demonstrate 50% improved function and decrease pain for ADLS Goal Time Frame: 4-6 Weeks Goal 4:: Patient improve cervical ROM for function of recovery for ADLS' Goal Time Frame: 4-6 Weeks Goal 5:: Patient to improve neck oswestry score by 5 points to improve qol. Goal Time Frame: 4-6 Weeks - Rehabilitation Potential Physical Therapy Diagnosis: This patient has multiple comorbities to influence contribute condition patient has h/o cervical fusion and non -ambulatory due foot amputation's use kneeling walker at home manual w/c and scooter for community with current impairments with pain cervical spine and decrease ROM thus benefit from skiled PT Rehabilitation Potential: Fair - Anticipated Interventions Patient/Client Instruction: Educate patient on: Condition, Plan of Care For the Purpose of:: To decrease pain, To increase ROM, To improve muscle performance and motor function, To improve ability to perform ADL's, To increase tolerance to activity/condition/position, To improve ability of physical actions for home/community/work/leisure, To decrease soft tissue restriction, To increase flexibility/ROM, To assume or resume ADL's, To improve self management, To improve tolerance to ADL's Therapeutic Exercise to Include: Strength training, Postural training, Flexibilty training, Active ROM For the Purpose of:: To decrease pain, To increase ROM, To improve muscle performance and motor function, To improve ability to perform ADL's, To increase tolerance to activity/condition/position, To improve performance and independence with ADL's, To improve ability of physical actions for home/com munity/work/leisure, To improve health of tissue, To decrease soft tissue restriction, To increase flexibility/ROM, To improve tolerance to ADL's Manual Therapy Techniques to Include: Massage, Soft tissue mobilization Comment: CERVICAL For the Purpose of:: To decrease pain, To increase ROM, To improve nutrient delivery to tissue, To increase oxygenation perfusion, To improve health of tissue, To decrease soft tissue restriction Cryotherapy (ice pack, ice massage): Yes Thermo therapy (hot pack): Yes Ultrasound (thermal/non thermal): Yes For the Purpose of:: To decrease pain, To increase ROM, To improve nutrient delivery to tissue, To increase oxygenation perfusion, To improve health of tissue, To decrease soft tissue restriction Thank you for the opportunity to evaluate your patient. For Medicare and Medicare HMO plans, please review the plan of care and approve it. It will need to be FAXED BACK to us at [phone] for Medicare purposes. For Medicare only, by signing this I certify the plan of care. Please let me know if there are questions or concerns regarding this plan of care. Physician Signature: Date:
--- NOTE | 2022-03-28 11:42 | HP.PTDCSUM ---
It has been my pleasure to treat SEBASTIÁN REYES referred by Dr. Con Johnson MD, with the diagnosis of NECK PAIN,LEG WEAKNESS for a total of 10 visit(s). Discharge Date: Please see the following information for a summary of their discharge status. Subjective: Patient reports doing better with neck and its been helping. Patient wants to work on leg strengthening , seen DR recommended PT for leg weakness and has new order . Patient is able to lay flat in bed. Patient may have BKA left leg dur to poor foot healing. Bilateral Neck Pain Intensity (Out of 10): 4 Bilateral Shoulder Pain Intensity (Out of 10): 4 % Improvement: 50 Objective/Function: POSTURE: mild forward posture. AROM BUE: WFL. BUE MMT: GROSSLY 4/5 SHOULDERS 4-/5. TRANSFERS : PIVOT TO MAT WITHS UPERVSION. GAIT: AMBULATORY DUE PRISCILLA OPEN WOUNF LEFT FOOT. MMT: QUADS/HAMS /HIP 4-/5 Goal 1:: I with HEP for posture and neck to manage symptoms and LE strengthening Goal Progress: Progressing Goal 2:: Improve sitting posture for ADL's 90% of the time. Goal Progress: Progressing Goal 3:: Patient to demonstrate 50% improved function and decrease pain for ADLS Goal 4:: Patient improve cervical ROM for function of recovery for ADLS' Goal Progress: Progressing Goal 5:: Patient to improve neck oswestry score by 5 points to improve qol. Goal Progress: Progressing Goal 6:: Patient increase BLE strength to 4/5 to improve function Goal Progress: (new goal) Plan: CONT CURRENT POC 2 XWEEK FOR 4WEEKS ADD LOWER STRENGTHENING /ROM AND FUNCTIONAL STRENGTHENING BLE. PT INTERVENTIONS MANUAL THERAPY STM, US, CERVICAL ROM, POSTURAL EX'S, AND STRENGTHEING If there are questions or concerns regarding this patient's physical therapy, please feel free to call me at [phone]. Thank you for the referral of this patient. Sincerely, Judson Sun, PT, Cert MDT, OCS Balance/Gait/Functional tests - Balance/Special Test Scores Oswestry Neck Score: 23
--- NOTE | 2022-03-29 12:07 | HP.PTREVAL_ITS ---
Dr. Con Johnson MD, It has been my pleasure to treat SEBASTI[facility]N REYES over the last 10 visits for NECK PAIN,LEG WEAKNESS. Please see the progress note below for an update on the physical therapy plan of care! Subjective: Patient reports doing better with neck and its been helping. Patient wants to work on leg strengthening , seen DR recommended PT for leg weak ness and has new order . Patient is able to lay flat in bed. Patient may have BKA left leg dur to poor foot healing. Objective/Function: POSTURE: mild forward posture. AROM BUE: WFL. BUE MMT: GROSSLY 4/5 SHOULDERS 4-/5. TRANSFERS : PIVOT TO MAT WITHS UPERVSION. GAIT: AMBULATORY DUE PRISCILLA OPEN WOUNF LEFT FOOT. MMT: QUADS/HAMS /HIP 4-/5 Plan Plan: CONT CURRENT POC 2 XWEEK FOR 4WEEKS ADD LOWER STRENGTHENING /ROM AND FUNCTIONAL STRENGTHENING BLE. PT INTERVENTIONS MANUAL THERAPY STM, US, CERVICAL ROM, POSTURAL EX'S, AND STRENGTHEING Balance/Gait/Functional tests - Balance/Special Test Scores Oswestry Neck Score: 23 Goals Goal 1:: I with HEP for posture and neck to manage symptoms and LE strengthening Goal Time Frame: 4-6 Weeks Goal Progress: Progressing Goal 2:: Improve sitting posture for ADL's 90% of the time. Goal Time Frame: 4-6 Weeks Goal Progress: Progressing Goal 3:: Patient to demonstrate 50% improved function and decrease pain for ADLS Goal Time Frame: 4-6 Weeks Goal 4:: Patient improve cervical ROM for function of recovery for ADLS' Goal Time Frame: 4-6 Weeks Goal Progress: Progressing Goal 5:: Patient to improve neck oswestry score by 5 points to improve qol. Goal Time Frame: 4-6 Weeks Goal Progress: Progressing Goal 6:: Patient increase BLE strength to 4/5 to improve function Goal Progress: (new goal) Anticipated Interventions Patient/Client Instruction: Educate patient on: Condition, Plan of Care For the Purpose of:: To decrease pain, To increase ROM, To improve muscle performance and motor function, To improve ability to perform ADL's, To increase tolerance to activity/condition/position, To improve ability of physical actions for home/community/work/leisure, To decrease soft tissue restriction, To increase flexibility/ROM, To assume or resume ADL's, To improve self management, To improve tolerance to ADL's Therapeutic Exercise to Include: Strength training, Postural training, Flexibilty training, Active ROM For the Purpose of:: To decrease pain, To increase ROM, To improve muscle performance and motor function, To improve ability to perform ADL's, To increase tolerance to activity/condition/position, To improve performance and independence with ADL's, To improve ability of physical actions for home/community/work/leisure, To improve health of tissue, To decrease soft tissue restriction, To increase flexibility/ROM, To improve tolerance to ADL's Manual Therapy Techniques to Include: Massage, Soft tissue mobilization Comment: CERVICAL For the Purpose of:: To decrease pain, To increase ROM, To improve nutrient delivery to tissue, To increase oxygenation perfusion, To improve health of tissue, To decrease soft tissue restriction Cryotherapy (ice pack, ice massage): Yes Thermo therapy (hot pack): Yes Ultrasound (thermal/non thermal): Yes For the Purpose of:: To decrease pain, To increase ROM, To improve nutrient delivery to tissue, To increase oxygenation perfusion, To improve health of tissue, To decrease soft tissue restriction Please do not hesitate to contact me at [phone] by phone or if you have questions or concerns regarding this new plan of care! Sincerely, Judson Sun PT, Cert MDT, OCS
== END 2022-04-24 19:00 | disposition home or self-care (01) ==
LOC: PT 12:00
PROVIDERS: PCP Family Medicine; Referring Provider Family Medicine; Visit Provider Family Medicine
DX: M54.2 Cervicalgia (principal); R29.898 Other symptoms and signs involving the musculoskeletal system
CPT/HCPCS: 97035; 97110; 97140; 97162; 97530

== ENCOUNTER → 2022-04-30 | Outpatient (CLI) | payer MEDICARE, OTHER, SELFPAY ==
[2022-04-30 11:23] VITALS: BP 119/39; PULSE 66; RESP 16; TEMP 36.4; O2SAT 94; BMI 28.3
[2022-04-30] MEDS: 0.9% NaCl Peripheral Flush Adult/Peds IV ×2 (12:08→13:43)
[2022-04-30] MEDS: 0.9% NaCl IVPB Med Flush (250 mL) 15 ML IV (12:09)
[2022-04-30 13:49] VITALS: BP 128/48; PULSE 65; RESP 16; TEMP 36.4; O2SAT 98
== END | disposition home or self-care (01) ==
PROVIDERS: PCP Family Medicine; Referring Provider Family Medicine; Visit Provider Family Medicine
DX: E61.1 Iron deficiency (principal); D64.9 Anemia, unspecified
CPT/HCPCS: 96365; J1756; J7050; A4216

== ENCOUNTER → 2022-05-02 | Outpatient (CLI) | payer MEDICARE, OTHER, SELFPAY ==
[2022-05-02 14:02] VITALS: BP 149/59; PULSE 67; RESP 16; TEMP 36.3; O2SAT 97; BMI 28.3
[2022-05-02] MEDS: 0.9% NaCl Peripheral Flush Adult/Peds IV (14:09)
[2022-05-02] MEDS: 0.9% NaCl IVPB Med Flush (250 mL) 15 ML IV (14:09)
[2022-05-02 15:31] VITALS: BP 145/58; PULSE 65; RESP 16; TEMP 36.2; O2SAT 97
== END | disposition home or self-care (01) ==
LOC: MEDOUTP 13:55
PROVIDERS: PCP Family Medicine; Referring Provider Family Medicine; Visit Provider Family Medicine
DX: E61.1 Iron deficiency (principal); D64.9 Anemia, unspecified
CPT/HCPCS: 96365; J1756; J7050; A4216

== ENCOUNTER 2022-05-04 07:38 | Day surgery (SDC) | payer MEDICARE, OTHER, SELFPAY ==
[2022-05-04] VITALS (10 sets, daily range): BP systolic 123–167; BP diastolic 49–71; PULSE 67–73; RESP 16–18; TEMP 36.6–37.3; O2SAT 91–96; BMI 29.2
[2022-05-04 08:51] LABS: Bedside Glucose 154 mg/dL (74-106)
[2022-05-04 09:11] LABS: Absolute Lymphocyte Count 1.89 X10^3/uL (0.83-4.51); Absolute Neutrophil Count 3.7 X10^3/uL (2.0-7.7); Basophil# 0.02 X10^3/uL; Basophil% 0.3 % (0-1); Eosinophils% 3.1 % (0-5); Hematocrit 34.5 % (37-47); Hemoglobin 10.4 g/dL (12.0-15.0); Lymphocyte # 1.89 X10^3/ul (0.83-4.51); Lymphocyte % 28.9 % (19-41); Mean Corp Hgb Conc 30.1 g/dL (32-36); Mean Corpuscular Hgb 23.3 pg (27.0-32.0); Mean Corpuscular Volume 77.2 fL (81-99); Mean Platelet Vol. 9.5 fl (6.2-12.0); Monocyte# 0.73 X10^3/uL; Monocyte% 11.2 % (0-10); NRBC Flagged by Analyzer 0 % (0-5); Neutrophil # 3.69 X10^3/uL (2.7-7.7); Neutrophil % 56.3 % (47-70); Platelet Count 220 K/mm3 (150-450); RBC Distribution Width CV 17.3 % (11.6-14.6); RBC Distribution Width SD 44.5 fl (35.1-43.9); Red Blood Count 4.47 M/mm3 (4.2-5.4); White Blood Count 6.5 K/mm3 (4.4-11.0)
[2022-05-04] MEDS: Clindamycin 900 MG/50 ML BAG 75 MG IV (09:12)
[2022-05-04 09:33] LABS: ALB/GLOB Ratio 0.7 RATIO (0.9-2.4); AST(SGOT) 16 U/L (15-37); Alanine Aminotransfer ALT/SGPT 23 U/L (13-56); Alkaline Phosphatase 108 U/L (45-117); Anion Gap 6 (5-15); BUN 41 mg/dL (7-18); BUN/Creat Ratio 31.5 RATIO (10-20); Calcium,Total 9.2 mg/dL (8.5-10.1); Chloride 108 mmol/L (98-107); EST Glomerular Filtration Rate 43 mL/min (>60); Est Glom Filt Rate - Afr Amer 51 mL/min (>60); Estimated Creatinine Clearance 32.78 ml/min; Globulin 4.1 g/dL (2.2-4.2); Glucose 159 mg/dL (74-106); Potassium 4.3 mmol/L (3.5-5.1); Protein, Total 7.1 g/dL (6.4-8.2); Sodium Level 139 mmol/L (136-145)
[2022-05-04] MEDS: Bupivacaine Mpf 0.5% 30 ML VIAL (10:33)
[2022-05-04] MEDS: Bacitracin 500 UNITS/GM PACKET (10:33)
--- NOTE | 2022-05-04 10:43 | PCM.OPRPT ---
Problems Associated Problem List Diagnoses (1) Acquired equinus deformity of left foot: (2) Non-pressure chronic ulcer of other part of left foot with fat layer exposed: Report of Operation Date of Procedure: 05/04/22 Pre-Operative Diagnosis: 1. Left foot chronic plantar foot wound secondary to neuropathy in setting of diabetes and rheumatoid arthritis 2. Equinus deformity left lower extremity Post-Operative Diagnosis: Same Surgery/Procedure Performed:: 1. Debridement and surgical prep of wound site for graft application, left foot 2. Application of skin substitute graft, left foot 3. Open tendon lengthening left foot Achilles tendon Description of Surgical Findings:: Reduction of equinus deformity and offloading the plantar forefoot wound in setting of Chopart amputation with distal plantar ulceration secondary to equinus deformity. This was noted to be improved after open tendon lengthening. Wound was debrided appears healthy at this time. Good adequate bleeding to site. Epicort graft was applied to the surgical site Surgeon: Claus Macias physician vice president: None (summer padilla) Type of Anesthesia: General Special Medications: 25cc 0.5% marcaine plain Specimen's removed: swab cultures foot wound Drains: none Estimated Blood Loss (mL): minimal Description of Procedure: Patient has had a chronic left foot wound which is demonstrated delayed healing in setting of peripheral arterial disease and peripheral neuropathy secondary to diabetes and rheumatoid arthritis. Patient has history of revascularization per Dr. Pang last saw him in 01/13/2022. He cleared the patient for surgery. Attempt is to reduce the equinus deformity causing the plantar distal stump ulceration at the amputation site to allow for better healing as well as accelerate healing by debriding the wound and applying a graft. Patient has been dealing with this wound for over a year and is considering elective below the knee amputation. This an attempt to prevent this and allow for limb salvage. Patient brought back the operating placed comfortably in the operating room table after induction under general anesthesia in the prone position with all osseous prominences offloaded prevent any compression neuropraxia Well-padded thigh tourniquet applied left lower extremity, this was not used throughout the case. Left lower extremity was scrubbed prepped and draped using typical aseptic manner. Preoperatively 25 cc half percent Marcaine plain was used to anesthetize the Achilles and plantar foot wound using local infiltration technique. Once cleared by anesthesia a linear incision was made along the course of the distal Achilles tendon through the level of epidermis dermis into subcutaneous tissue with a #15 blade. Blunt dissection was taken down the level of deep fascia any bleeders were cauterized neurovascular structures identified and protected with blunt retraction. Full-thickness incision was made through the deep fascia peritenon and Achilles tendon in the form of a C. The Achilles tendon was then lengthened 3 cm and repaired with simple interrupted technique using #2 FiberWire. Additional repair was performed using 3 tubularization with #2 FiberWire along the course Achilles tendon. Achilles tendon noted to be functional with reduction of the equinus deformity after completion of the tenotomy. Site was flushed with copious amounts normal sterile saline and closed with simple interrupted buried subcutaneous 2-0 Vicryl and skin closed with simple interrupted 3-0 Prolene. Attention was taken to the plantar foot wound which was excisionally debrided down to including level subcutaneous tissue of all nonviable tissue using combination of bone rongeurs. The graft site was then prepped for application of the epi cord graft by stimulating the base with bone rongeurs to stimulate healthy bleeding to the site. Predebridement the wound was 2 x 1.8 x 0.5 cm postdebridement the wound was 2.0 x 2.0 x 0.5 cm. Wound was flushed with copious amounts of normal sterile saline and swab culture epi cord graft 2 x 3 cm was applied to the wound site moistened with saline wet gauze and sutured into place using simple interrupted 3-0 Prolene. Overlying Adaptic was applied to the wound site to help additional stability bacitracin Adaptic was applied to the posterior Achilles incision. Dry sterile dressing and well-padded Morocho posterior splint applied. Patient was transferred to PACU vital signs stable vascular status intact for further monitoring prior to discharge patient tolerated procedure and anesthesia well in apparent satisfactory condition. Patient will be discharged home with a maintain nonweightbearing status follow-up in 1 week for dressing change.
[2022-05-04] MEDS: Lactated Ringers 1,000 ML 15 ML IV (10:58)
[2022-05-04 11:21] LABS: Bedside Glucose 147 mg/dL (74-106)
[2022-05-04] MEDS: oxyCODONE 5 MG Tablet PO (13:00)
== END 2022-05-04 14:27 | disposition home or self-care (01) ==
LOC: SDC 07:41 → AC 07:42
PROVIDERS: PCP Family Medicine; Referring Provider Podiatrist; Visit Provider Podiatrist
PROC: (CPT 27685; principal; 2022-05-04 08:40)
DX: M21.6X2 Other acquired deformities of left foot (principal); E11.621 Type 2 diabetes mellitus with foot ulcer; E11.51 Type 2 diabetes mellitus with diabetic peripheral angiopathy without gangrene; L97.522 Non-pressure chronic ulcer of other part of left foot with fat layer exposed; M06.9 Rheumatoid arthritis, unspecified; E11.42 Type 2 diabetes mellitus with diabetic polyneuropathy; E11.22 Type 2 diabetes mellitus with diabetic chronic kidney disease; Z79.4 Long term (current) use of insulin; N18.2 Chronic kidney disease, stage 2 (mild); I25.10 Atherosclerotic heart disease of native coronary artery without angina pectoris
CPT/HCPCS: 27685; 11042; 80053; 82962; 85025; 87070; 87075; 87077; 87186; 87205; J7120; J2405

== ENCOUNTER → 2022-05-08 | Outpatient (CLI) | payer MEDICARE, OTHER, SELFPAY ==
[2022-05-08] MEDS: 0.9% NaCl Peripheral Flush Adult/Peds IV ×2 (13:15→14:13)
[2022-05-08 13:31] VITALS: BP 138/57; PULSE 64; RESP 14; TEMP 36.7; O2SAT 95; BMI 29.2
[2022-05-08] MEDS: 0.9% NaCl IVPB Med Flush (250 mL) 15 ML IV (14:13)
[2022-05-08 14:52] VITALS: BP 151/59; PULSE 65; RESP 14; TEMP 36.6; O2SAT 97
== END | disposition home or self-care (01) ==
LOC: MEDOUTP 13:00
PROVIDERS: PCP Family Medicine; Referring Provider Family Medicine; Visit Provider Family Medicine
DX: D50.9 Iron deficiency anemia, unspecified (principal)
CPT/HCPCS: 96365; J1756; J7050; A4216

== ENCOUNTER → 2022-05-10 | Outpatient (CLI) | payer MEDICARE, OTHER, SELFPAY ==
[2022-05-10] MEDS: 0.9% NaCl Peripheral Flush Adult/Peds IV (13:20)
[2022-05-10] MEDS: 0.9% NaCl IVPB Med Flush (250 mL) 15 ML IV (13:21)
[2022-05-10 13:32] VITALS: BP 134/46; PULSE 57; O2SAT 95
== END | disposition home or self-care (01) ==
LOC: MEDOUTP 12:56
PROVIDERS: PCP Family Medicine; Referring Provider Family Medicine; Visit Provider Family Medicine
DX: D50.9 Iron deficiency anemia, unspecified (principal)
CPT/HCPCS: 96365; J1756; J7050; A4216

== ENCOUNTER → 2022-05-14 | Outpatient (CLI) | payer MEDICARE, OTHER, SELFPAY ==
[2022-05-14 13:03] VITALS: BP 143/43; PULSE 58; RESP 16; TEMP 36.8; O2SAT 99
[2022-05-14] MEDS: 0.9% NaCl Peripheral Flush Adult/Peds IV ×2 (13:19→13:40)
[2022-05-14] MEDS: 0.9% NaCl IVPB Med Flush (250 mL) 15 ML IV (13:40)
[2022-05-14 14:55] VITALS: BP 138/43; PULSE 62; O2SAT 97
== END | disposition home or self-care (01) ==
LOC: MEDOUTP 12:49
PROVIDERS: PCP Family Medicine; Referring Provider Family Medicine; Visit Provider Family Medicine
DX: D50.9 Iron deficiency anemia, unspecified (principal)
CPT/HCPCS: 96365; J1756; J7050; A4216

== ENCOUNTER 2022-05-22 09:45 | Outpatient (RCR) | payer MEDICARE, OTHER, SELFPAY ==
[2022-04-26 00:26] VITALS: BP 127/50; PULSE 61; RESP 16; TEMP 36
[2022-05-15 10:15] VITALS: BP 145/55; PULSE 64; RESP 20; TEMP 35.9
[2022-05-22 09:54] VITALS: BP 121/53; PULSE 73; RESP 20; TEMP 36.6
--- NOTE | 2022-05-22 11:11 | PCM.WC.PN ---
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 Patient denies constitutional symptoms. Patient notes that she is offloading it by staying predominantly in a wheelchair but she does transfer and put diffuse weight to her left foot. Patient denies any pain or any other complaints at this time. Patient is 12 days postop from left Achilles tendon lengthening. Patient denies pain constitutional symptoms signs and symptoms of DVT. Noted some rubbing initially the postoperative dressing. Patient notes that she initially was maintaining a nonweightbearing status but over the past week has been ambulating on the surgical site AGAINST MEDICAL ADVICE. Objective Data Objective Data Vital Signs: Vital Signs Temp Pulse Resp BP 97.9 F 73 20 H 121/53 H 05/22/22 09:54 05/22/22 09:54 05/22/22 09:54 05/22/22 09:54 Physical Exam Narrative Neurovascular status unchanged previous visit. There is central wound dehiscence of the posterior incision along the Achilles tendon with Achilles tendon exposure. This wound was debrided of nonviable fibrotic tissue in the area healthy bleeding was noted around the tendon however there is a tendonto the site. Tendon function is well-maintained at this time but there is exposed tendon within this wound. Postdebridement measurements document nursing notes. Plantar foot wound limits improvement with regards to size. Demonstrates granular base. Postdebridement measurements document nursing notes. There is some reduction of the equinus deformity after Achilles tendon lengthening. Debridement Note Debridement Note Post-Debridement Measurements and Additional Note: Post-Debridement Measurements/Treatment - Nurse 1 - General Ulcer Assessment Start: 05/15/22 10:06 Freq: Status: Active Protocol: EUGENE Activity Type Activity Date Activity User E-sign Co-sign Detail Recorded Client Recorded Date Recorded By Document 05/15/22 10:15 EULOGIO [id number] 05/15/22 10:20 Document 05/22/22 09:54 DL [id number] 05/22/22 10:06 DL 05/15/22 05/22/22 10:15 09:54 - Today's Visit Information Type of service Nurse-only Follow-up Visit Visit (Physician/LEASE ADMINISTRATION ANALYST ) Arrival Mode Wheelchair Wheelchair Transfer Assistance Manual None Transfer Assist (Other) x2 Patient Identification Verified (Name & Yes Yes ) Patient Requires Transmission-Based No No Precautions Safety Precautions Fall Prevention Finger Stick Blood Sugar(mg/dl) (if not checked not checked indicated): Blood Sugar Stated by Stated by Patient Patient Vital Signs Temperature (97.8 F-99.1 F) 96.7 F L 97.9 F Temperature Source Temporal Temporal Pulse Rate (60-100) 64 73 Pulse Location Monitor Monitor Respiratory Rate (12-18) 20 H 20 H Respiratory rate source Observation Observation Blood Pressure (90/60-120/80) 145/55 H 121/53 H Blood Pressure Mean (mm Hg) 85 75 Source Monitor Monitor History Since Last Visit- (Skip if this is Patient's initial visit) Have you changed medications since your No No last visit? Any new allergies or adverse reactions No No Had a fall/change in ADL's that may No No increase risk of falls Signs or symptoms of abuse and/or No No neglect since last visit Have you been in the hospital since your No Yes last visit? Has dressing in place as prescribed Yes Yes Has compression in place as prescribed Yes Yes Has offloadiing in place as prescribed Yes Experienced any changes in pain level or No No management Left Footwear No Footwear No Footwear Right Footwear No Footwear Pain Scale: 0-10 Numeric Is Patient Pain Free? Yes Yes WC - Nurse 1 - General Ulcer Measurement Start: 05/15/22 10:06 Freq: Status: Active Protocol: Activity Type Activity Date Activity User E-sign Co-sign Detail Recorded Client Recorded Date Recorded By Document 05/15/22 10:15 [id number] 05/15/22 10:20 Document 05/22/22 09:54 DL [id number] 05/22/22 10:06 DL 05/15/22 05/22/22 10:15 09:54 Wound Center Nurse 1 #10 L Achilles -Current Size (cm) - Length 6 -Current Size (cm) - Width 1.6 -Current Size (cm) - Depth 0.1 -Total Square Cm 9.6 -Photo Taken Yes -Exudate Amt Medium -Exudate Type Serosanguineous -Wound Margin Distinct, Outline Attached -Granulation Amt Small (1-33%) -Granulation Quality [place] -Necrosis Amt Large (67-100%) -Necrotic Tissue Type Adherent Slough -Structure Exposed N/A -Texture (Shannon-wound Skin Appearance) Localized Edema ,Scarring -Moisture (Shannon-wound Skin Appearance) No Abnormality -Color (Shannon-wound Skin Appearance) Erythema -Temperature (Shannon-wound Skin No Abnormality Appearance) (Pt Warm) -Tenderness on Palpation (Shannon-wound No Skin Appearance) -Ulcer Cleansing Soap and Water -Foul Odor after Cleansing No -Anesthetic Used 5% Lidocaine Gel 10. L plantar cluster -Current Size (cm) - Length 0.8 1 -Current Size (cm) - Width 1 1.2 -Current Size (cm) - Depth 0.7 0.5 -Total Square Cm 0.8 1.2 -Photo Taken Yes Yes -Exudate Amt Medium Small -Exudate Type Serosanguineous Serosanguineous -Wound Margin Thickened & Distinct, Rolled Under Outline Attached -Granulation Amt Medium (34-66%) Medium (34-66%) -Granulation Quality Pale,[place] -Necrosis Amt Medium (34-66%) -Necrotic Tissue Type Adherent Slough Adherent Slough -Structure Exposed N/A N/A -Texture (Shannon-wound Skin Appearance) Callus,Scarring Scarring -Moisture (Shannon-wound Skin Appearance) No Abnormality Maceration -Color (Shannon-wound Skin Appearance) No Abnormality No Abnormality -Temperature (Shannon-wound Skin No Abnormality No Abnormality Appearance) (Pt Warm) (Pt Warm) -Tenderness on Palpation (Shannon-wound No Skin Appearance) -Ulcer Cleansing Soap and Water Soap and Water -Foul Odor after Cleansing No No -Anesthetic Used 5% Lidocaine Gel -Wound Comment(s) Post op/ WC - Nurse 2 - General Ulcer CM Notes Start: 05/15/22 10:06 Freq: Status: Active Protocol: Activity Type Activity Date Activity User E-sign Co-sign Detail Recorded Client Recorded Date Recorded By Document 05/22/22 10:29 EULOGIO [id number] 05/22/22 10:34 EULOGIO 05/22/22 10:29 Wound Center Nurse 2 #10 L Achilles -Time 10:31 -Correct Patient Yes -Correct Side, Site, Position Yes -Correct Procedure Yes -Procedure Performed Yes -Type of Procedure Debridement -Clinical Debridement Muscle / Fascia -Tissue Removed Muscle,Fascia -Post Debridement (cm) - Length 3.3 -Post Debridement (cm) - Width 1.3 -Post Debridement (cm) - Depth 0.3 -Total Square (Post) (cm) 4.29 -Area of Debridement (cm) - Length 3.3 -Area of Debridement (cm) - Width 1.3 -Total Square (Area) (cm) 4.29 -Tunneling No -Undermining/Tunneling No -Circular Undermining No -Wound/Ulcer Outcome Not Healed -Ulcer Cleansing Rinsed/ Irrigated with Saline -Foul Odor after Cleansing No -Bioengineered Tissue No -Bleeding Controlled with Pressure -Treatment Response Procedure Tolerated Well -Offloading Yes -Type of Offloading Camwalker -Assistive Device(s) Wheelchair -Debridement - Muscle / Fascia, 1st Yes 20sq cm 10. L plantar cluster -Time 10:31 -Correct Patient Yes -Correct Side, Site, Position Yes -Correct Procedure Yes -Procedure Performed Yes -Type of Procedure Debridement -Clinical Debridement Subcutaneous -Tissue Removed Subcutaneous -Post Debridement (cm) - Length 1.1 -Post Debridement (cm) - Width 1.2 -Post Debridement (cm) - Depth 0.5 -Total Square (Post) (cm) 1.32 -Area of Debridement (cm) - Length 1.1 -Area of Debridement (cm) - Width 1.2 -Total Square (Area) (cm) 1.32 -Undermining/Tunneling No -Circular Undermining No -Wound/Ulcer Outcome Not Healed -Foul Odor after Cleansing No -Bioengineered Tissue No -Bleeding Controlled with Pressure -Treatment Response Procedure Tolerated Well -Offloading Yes -Type of Offloading Camwalker -Debridement - Subq, 1st 20sq cm Yes Pain Scale: 0-10 Numeric Is Patient Pain Free? Yes WC - Nurse 3 - General Ulcer D/C NN Start: 05/15/22 10:06 Freq: Status: Active Protocol: Activity Type Activity Date Activity User E-sign Co-sign Detail Recorded Client Recorded Date Recorded By Document 05/15/22 10:15 EULOGIO [id number] 05/15/22 10:20 EULOGIO Edit Result 05/15/22 10:15 EULOGIO (1) [id number] 05/15/22 11:14 JF (1) 10. L plantar cluster - Primary Dressing Covered/Secured with => Dry Gauze,Secured => with Tape,Other - Other Covering => undercasting, => splint and then an => arjun wrap. ABD pad => to site first. Left - Compression Wrap => Arjun Wrap Discharge Condition => Stable Ambulatory Status => Wheelchair Transportation => Private Auto Medication Reconcilliation completed & => Yes provided to patient/care provider Clinical Summary of Care Provided => Yes Notes: => Incision to left achilles from surgery was well approximated with no concerning drainage. Redness noted to shannon-ulcer but was not warm to touch. Patient stated that she felt it rubbing underneath initial dressing that she repositioned at home. It appeared itchy when I was washing it with soap warm water. Attempted to get ahold of Dr Macias for new orders thru PMD texting. No response so betadine was painted to incision site and padded with ABD pad and undercasting against the splint. Arjun wrap was used to secure splint against the leg and foot and patient noted that if felt more comfortable and secure. Patient was advised to do her dressing this week to lay eyes on the redness and was told what to look for. If symptoms worses, she was told to report to the ER. Patient verbalized understanding. 05/15/22 10:15 Vital Signs Temperature (97.8 F-99.1 F) 96.7 F L Temperature Source Temporal Pulse Rate (60-100) 64 Pulse Location Monitor Respiratory Rate (12-18) 20 H Respiratory rate source Observation Blood Pressure (90/60-120/80) 145/55 H Blood Pressure Mean (mm Hg) 85 Source Monitor Pain Scale: 0-10 Numeric Is Patient Pain Free? Yes Wound Care Nurse 3 10. L plantar cluster -Primary Dressing Covered/Secured with Dry Gauze, Secured with Tape,Other -Other Covering undercasting, splint and then an arjun wrap. ABD pad to site first. Left -Compression Wrap Arjun Wrap WC - Visit Discharge Discharge Condition Stable Ambulatory Status Wheelchair Transportation Private Auto Medication Reconcilliation completed & Yes provided to patient/care provider Clinical Summary of Care Provided Yes Notes: Incision to left achilles from surgery was well approximated with no concerning drainage. Redness noted to shannon-ulcer but was not warm to touch. Patient stated that she felt it rubbing underneath initial dressing that she repositioned at home. It appeared itchy when I was washing it with soap warm water. Attempted to get ahold of Dr Macias for new orders thru PMD texting. No response so betadine was painted to incision site and padded with ABD pad and undercasting against the splint. Arjun wrap was used to secure splint against the leg and foot and patient noted that if felt more comfortable and secure. Patient was advised to do her dressing this week to lay eyes on the redness and was told what to look for. If symptoms worses, she was told to report to the ER. Patient verbalized understanding. Assessment/Plan Assessment/Plan (1) Non-pressure chronic ulcer of left ankle with necrosis of muscle: CODE(S): L97.323 - Non-pressure chronic ulcer of left ankle with necrosis of muscle PLAN: Exam performed. Dehiscence to Achilles tendon site with exposed Achilles tendon. Discussed this with patient. This was debrided. Recommend application of hydrogel Adaptic to site daily with DSD. Patient will maintain nonweightbearing status status assisted by knee scooter or wheelchair with Cam walking boot in place. Wound to posterior Achilles tendon was debrided excisionally down to level of tendon while the wound to the plantar foot was debrided down to the level of subcutaneous tissue of all nonviable tissue using 3mm dermal curette and #15 blade without incident. Healthy bleeding noted to the area hemostasis obtained with light compression. No anesthesia due to neuropathy. Patient tolerated procedure well. Oral consent obtained. Pre and postdebridement measurements document nursing notes. Discussed the importance of nonweightbearing and wound healing this is likely contributing to the dehiscence of the surgical site due to noncompliance of nonweightbearing restrictions. Patient will follow up in 1 week. (2) Non-pressure chronic ulcer of other part of left foot with fat layer exposed: CODE(S): L97.522 - Non-pressure chronic ulcer of other part of left foot with fat layer exposed
== END 2022-05-26 23:59 | disposition home or self-care (01) ==
LOC: WC 09:45
PROVIDERS: PCP Family Medicine; Referring Provider Podiatrist; Visit Provider Podiatrist
DX: E11.622 Type 2 diabetes mellitus with other skin ulcer (principal); L97.323 Non-pressure chronic ulcer of left ankle with necrosis of muscle; L97.422 Non-pressure chronic ulcer of left heel and midfoot with fat layer exposed; E11.40 Type 2 diabetes mellitus with diabetic neuropathy, unspecified; E11.610 Type 2 diabetes mellitus with diabetic neuropathic arthropathy; Z79.4 Long term (current) use of insulin; Z79.890 Hormone replacement therapy; Z79.899 Other long term (current) drug therapy
CPT/HCPCS: 11042; 11043; 99214; G0463

== ENCOUNTER 2022-06-12 11:00 | Outpatient (RCR) | payer MEDICARE, OTHER, SELFPAY ==
[2022-05-27 00:22] VITALS: BP 121/53; PULSE 73; RESP 20; TEMP 36.6
[2022-05-29 10:49] VITALS: BP 159/76; PULSE 78; RESP 18; TEMP 36.3
--- NOTE | 2022-05-29 11:19 | PCM.WC.PN ---
History of Present Illness Date of Service: 05/29/22 Chief Complaint: Left foot plantar ulcer History of Wound: 76 year old female presents to clinic for follow up on left plantar foot wound and posterior achilles wound 2/2 to surgical dehiscence. She denies constitutional symptoms. She denies pain. Patient NWB w/ cam boot assisted by knee scooter. No other complaints. Objective Data Objective Data Vital Signs: Vital Signs Temp Pulse Resp BP 97.9 F 73 20 H 121/53 H 05/27/22 00:22 05/27/22 00:22 05/27/22 00:22 05/27/22 00:22 Physical Exam Narrative Neurovascular status unchanged previous visit. There is central wound dehiscence of the posterior incision along the Achilles tendon with Achilles tendon exposure. This wound was debrided of nonviable fibrotic tissue in the area healthy bleeding was noted around the tendon however there is a tendonto the site. Tendon function is well-maintained at this time but there is exposed tendon within this wound. Postdebridement measurements document nursing notes. Plantar foot wound limits improvement with regards to size. Demonstrates granular base. Postdebridement measurements document nursing notes. There is some reduction of the equinus deformity after Achilles tendon lengthening. Debridement Note Debridement Note Post-Debridement Measurements and Additional Note: Post-Debridement Measurements/Treatment WC - Nurse 2 - General Ulcer CM Notes Start: 05/29/22 10:48 Freq: Status: Active Protocol: Activity Type Activity Date Activity User E-sign Co-sign Detail Recorded Client Recorded Date Recorded By Document 05/29/22 11:16 EULOGIO [id number] 05/29/22 11:18 EULOGIO 05/29/22 11:16 Wound Center Nurse 2 #11 L FOOT PLANTAR CLUSTER -Time 11:16 -Correct Patient Yes -Correct Side, Site, Position Yes -Correct Procedure Yes -Procedure Performed Yes -Type of Procedure Debridement -Clinical Debridement Subcutaneous -Tissue Removed Subcutaneous -Post Debridement (cm) - Length 0.7 -Post Debridement (cm) - Width 0.7 -Post Debridement (cm) - Depth 0.3 -Total Square (Post) (cm) 0.49 -Area of Debridement (cm) - Length 0.7 -Area of Debridement (cm) - Width 0.7 -Total Square (Area) (cm) 0.49 -Tunneling No -Undermining/Tunneling No -Circular Undermining No -Wound/Ulcer Outcome Not Healed -Ulcer Cleansing Rinsed/ Irrigated with Saline -Foul Odor after Cleansing No -Bioengineered Tissue No -Bleeding Controlled with Pressure -Treatment Response Procedure Tolerated Well -Offloading Yes -Type of Offloading Camwalker -Assistive Device(s) Wheelchair -Debridement - Subq, 1st 20sq cm Yes Pain Scale: 0-10 Numeric Is Patient Pain Free? Yes Assessment/Plan Assessment/Plan (1) Non-pressure chronic ulcer of left ankle with necrosis of muscle: CODE(S): L97.323 - Non-pressure chronic ulcer of left ankle with necrosis of muscle PLAN: Exam performed. Dehiscence to Achilles tendon site with exposed Achilles tendon. Discussed this with patient. Plantar foot wound debrided today. Wound to plantar left foot excisionally down to level of subcutaneous tissue while the wound to the plantar foot was debrided down to the level of subcutaneous tissue of all nonviable tissue using 3mm dermal curette and #15 blade without incident. Healthy bleeding noted to the area hemostasis obtained with light compression. No anesthesia due to neuropathy. Patient tolerated procedure well. Oral consent obtained. Pre and postdebridement measurements document nursing notes. Dakins to achilles site, hydrogel to plantar foot, DSD no compression. Daily dressing changes. Discussed the importance of nonweightbearing and wound healing this is likely contributing to the dehiscence of the surgical site due to noncompliance of nonweightbearing restrictions. Patient will follow up in 1 week. (2) Non-pressure chronic ulcer of other part of left foot with fat layer exposed: CODE(S): L97.522 - Non-pressure chronic ulcer of other part of left foot with fat layer exposed
[2022-06-05 11:06] VITALS: BP 132/52; PULSE 67; RESP 16
--- NOTE | 2022-06-05 12:04 | PN.PCM_ITS ---
History of Present Illness Date of Service: 06/05/22 Chief Complaint: Left foot plantar ulcer History of Wound: 76 year old female presents to clinic for follow up on left plantar foot wound and posterior achilles wound 2/2 to surgical dehiscence. She denies constitutional symptoms. She denies pain. Patient NWB w/ cam boot assisted by knee scooter. No other complaints. Objective Data Objective Data Vital Signs: Vital Signs Temp Pulse Resp BP O2 Del Method 97.4 F L 67 16 132/52 H Room Air 05/29/22 10:49 06/05/22 11:06 06/05/22 11:06 06/05/22 11:06 06/05/22 11:06 Oxygen Delivery Method Room Air Physical Exam Narrative Neurovascular status unchanged previous visit. There is central wound dehiscence of the posterior incision along the Achilles tendon with Achilles tendon exposure. This wound was debrided of nonviable fibrotic tissue in the area healthy bleeding was noted around the tendon however there is a tendon to the site. Tendon function is well-maintained at this time but there is exposed tendon within this wound. Postdebridement measurements document nursing notes. Plantar foot wound limits improvement with regards to size. Demonstrates granular base. Postdebridement measurements document nursing notes. There is some reduction of the equinus deformity after Achilles tendon lengthening. Debridement Note Debridement Note Post-Debridement Measurements and Additional Note: Post-Debridement Measurements/Treatment - Nurse 1 - General Ulcer Assessment Start: 05/29/22 10:48 Freq: Status: Active Protocol: WC.LOWEXT Activity Type Activity Date Activity User E-sign Co-sign Detail Recorded Client Recorded Date Recorded By Document 05/29/22 10:49 DL [id number] 05/29/22 11:25 DL Document 06/05/22 11:06 [facility] [id number] 06/05/22 11:20 BM 05/29/22 06/05/22 10:49 11:06 - Today's Visit Information Type of service Follow-up Visit Follow-up Visit (Physician/RECEIVING ASSOCIATE (Physician/RECEIVING ASSOCIATE ) ) Arrival Mode Wheelchair Wheelchair Transfer Assistance None Other Transfer Assist (Other) STAND BY Patient Identification Verified (Name & Yes Yes ) Patient Requires Transmission-Based No No Precautions Finger Stick Blood Sugar(mg/dl) (if not checked indicated): Blood Sugar Stated by Patient Vital Signs Temperature (97.8 F-99.1 F) 97.4 F L Temperature Source Temporal Pulse Rate (60-100) 78 67 Pulse Location Monitor Monitor Respiratory Rate (12-18) 18 16 Respiratory rate source Observation Observation Oxygen Delivery Method Room Air Blood Pressure (90/60-120/80) 159/76 H 132/52 H Blood Pressure Mean (mm Hg) 103 78 Source Monitor Monitor Position Sitting Blood Pressure Location Right Arm History Since Last Visit- (Skip if this is Patient's initial visit) Have you changed medications since your No No last visit? Any new allergies or adverse reactions No No Had a fall/change in ADL's that may No No increase risk of falls Signs or symptoms of abuse and/or No No neglect since last visit Have you been in the hospital since your No No last visit? Has dressing in place as prescribed Yes Yes Has compression in place as prescribed N/A N/A Has offloadiing in place as prescribed Yes Yes Experienced any changes in pain level or No No management Left Footwear Removable Cast Removable Cast Walker/Walking Walker/Walking Boot Boot Right Footwear Regular Shoe Pain Scale: 0-10 Numeric Is Patient Pain Free? Yes Yes WC - Nurse 1 - General Ulcer Measurement Start: 05/29/22 10:48 Freq: Status: Active Protocol: Activity Type Activity Date Activity User E-sign Co-sign Detail Recorded Client Recorded Date Recorded By Document 05/29/22 10:49 DL [id number] 05/29/22 11:25 DL Document 06/05/22 11:06 [facility] [id number] 06/05/22 11:20 [facility] 05/29/22 06/05/22 10:49 11:06 Wound Center Nurse 1 #10 L Achilles -Combined with other wound No -Current Size (cm) - Length 3.2 3.7 -Current Size (cm) - Width 2 1.5 -Current Size (cm) - Depth 0.1 0.2 -Total Square Cm 6.4 5.55 -Date of Last Picture (Recall this 06/05/22 field) -Photo Taken Yes Yes -Epithelialization Small 1-33% -Tunneling No -Undermining/Tunneling No -Circular Undermining No -Exudate Amt Small Large -Exudate Type Serosanguineous Serosanguineous -Wound Margin Distinct, Distinct, Outline Outline Attached Attached -Granulation Amt None Present (0 Small (1-33%) %) -Granulation Quality Red -Slough/Fibrin Yes -Necrosis Amt Large (67-100%) Large (67-100%) -Necrotic Tissue Type Adherent Slough Adherent Slough -Structure Exposed N/A -Texture (Shannon-wound Skin Appearance) Scarring Assessed, Localized Edema ,Scarring -Moisture (Shannon-wound Skin Appearance) No Abnormality Assessed -Color (Shannon-wound Skin Appearance) No Abnormality Assessed, Erythema -Temperature (Shannon-wound Skin No Abnormality No Abnormality Appearance) (Pt Warm) (Pt Warm) -Tenderness on Palpation (Shannon-wound No Yes Skin Appearance) -Ulcer Cleansing Soap and Water Soap and Water -Foul Odor after Cleansing No -Anesthetic Used 5% Lidocaine 5% Lidocaine Gel Gel -Wound Comment(s) sutures intact SUTURES INTACT #11 L FOOT PLANTAR CLUSTER -Combined with other wound No -Current Size (cm) - Length 0.6 0.4 -Current Size (cm) - Width 0.7 0.5 -Current Size (cm) - Depth 0.6 0.3 -Total Square Cm 0.42 0.20 -Date of Last Picture (Recall this 06/05/22 field) -Photo Taken Yes Yes -Epithelialization Small 1-33% -Tunneling No -Undermining/Tunneling No -Undermining/Tunneling Starts (O'clock 10 ) -Undermining/Tunneling Ends (O'clock) 3 -Maximum Distance (cm) 0.6 -Circular Undermining No -Exudate Amt Small Small -Exudate Type Serosanguineous Serosanguineous -Wound Margin Distinct, Distinct, Outline Outline Attached Attached -Granulation Amt None Present (0 Large (67-100%) %) -Granulation Quality Red -Slough/Fibrin Yes -Necrosis Amt Large (67-100%) Small (1-33%) -Necrotic Tissue Type Adherent Slough Adherent Slough -Structure Exposed N/A -Texture (Shannon-wound Skin Appearance) Scarring Assessed, Scarring -Moisture (Sahnnon-wound Skin Appearance) No Abnormality Assessed -Color (Shannon-wound Skin Appearance) No Abnormality Assessed -Temperature (Shannon-wound Skin No Abnormality No Abnormality Appearance) (Pt Warm) (Pt Warm) -Tenderness on Palpation (Shannon-wound No No Skin Appearance) -Ulcer Cleansing Soap and Water Soap and Water -Foul Odor after Cleansing No No -Anesthetic Used 5% Lidocaine 5% Lidocaine Gel Gel - Nurse 2 - General Ulcer CM Notes Start: 05/29/22 10:48 Freq: Status: Active Protocol: Activity Type Activity Date Activity User E-sign Co-sign Detail Recorded Client Recorded Date Recorded By Document 05/29/22 11:16 [id number] 05/29/22 11:18 05/29/22 11:16 Wound Center Nurse 2 -Time 11:16 -Correct Patient Yes -Correct Side, Site, Position Yes -Correct Procedure Yes -Procedure Performed Yes -Type of Procedure Debridement -Clinical Debridement Subcutaneous -Tissue Removed Subcutaneous -Post Debridement (cm) - Length 0.7 -Post Debridement (cm) - Width 0.7 -Post Debridement (cm) - Depth 0.3 -Total Square (Post) (cm) 0.49 -Area of Debridement (cm) - Length 0.7 -Area of Debridement (cm) - Width 0.7 -Total Square (Area) (cm) 0.49 -Tunneling No -Undermining/Tunneling No -Circular Undermining No -Wound/Ulcer Outcome Not Healed -Ulcer Cleansing Rinsed/ Irrigated with Saline -Foul Odor after Cleansing No -Bioengineered Tissue No -Bleeding Controlled with Pressure -Treatment Response Procedure Tolerated Well -Offloading Yes -Type of Offloading Camwalker -Assistive Device(s) Wheelchair -Debridement - Subq, 1st 20sq cm Yes Pain Scale: 0-10 Numeric Is Patient Pain Free? Yes - Nurse 3 - General Ulcer D/C NN Start: 05/29/22 10:48 Freq: Status: Active Protocol: Activity Type Activity Date Activity User E-sign Co-sign Detail Recorded Client Recorded Date Recorded By Document 05/29/22 11:25 DL [id number] 05/29/22 11:28 DL Document 06/05/22 12:03 DL [id number] 06/05/22 12:04 DL 05/29/22 06/05/22 11:25 12:03 Wound Care Nurse 3 #10 L Achilles -Ulcer Cleansing Rinsed/ Wound Cleanser Irrigated with Saline -Foul Odor after Cleansing No No -Other Dressing dakins hydrogel -Primary Dressing Covered/Secured with Dry Gauze & Dry Gauze & Roll Gauze, Roll Gauze, Secured with Secured with Tape Tape #11 L FOOT PLANTAR CLUSTER -Ulcer Cleansing Rinsed/ Rinsed/ Irrigated with Irrigated with Saline Saline -Foul Odor after Cleansing No No -Other Dressing hydrogel hydrogel -Primary Dressing Covered/Secured with Dry Gauze & Dry Gauze & Roll Gauze, Roll Gauze, Secured with Secured with Tape Tape Treatment Response Procedure Procedure Tolerated Well Tolerated Well Pain Scale: 0-10 Numeric Is Patient Pain Free? Yes Yes WC - Visit Discharge Discharge Condition Stable Stable Ambulatory Status Wheelchair Wheelchair Transportation Private Auto Private Auto Facility Type Home Health Notes: dressing a pplied per B GRICELDA Mendoza today Orders Sent Yes Assessment/Plan Assessment/Plan (1) Non-pressure chronic ulcer of left ankle with necrosis of muscle: CODE(S): L97.323 - Non-pressure chronic ulcer of left ankle with necrosis of muscle PLAN: Exam performed. Dehiscence to Achilles tendon site with exposed Achilles tendon. Discussed this with patient. Plantar foot wound debrided today. Wound to plantar left foot excisionally down to level of subcutaneous tissue while the wound to the plantar foot was debrided down to the level of subcutaneous tissue of all nonviable tissue using 3mm dermal curette and #15 blade without incident. Healthy bleeding noted to the area hemostasis obtained with light compression. No anesthesia due to neuropathy. Patient tolerated procedure well. Oral consent obtained. Pre and postdebridement measurements document nursing notes. hydrogel to achilles site, hydrogel to plantar foot, DSD no compression. Daily dressing changes. Discussed the importance of nonweightbearing and wound healing this is likely contributing to the dehiscence of the surgical site due to noncompliance of nonweightbearing restrictions. Patient will follow up in 1 week. (2) Non-pressure chronic ulcer of other part of left foot with fat layer exposed: CODE(S): L97.522 - Non-pressure chronic ulcer of other part of left foot with fat layer exposed
[2022-06-12 08:28] VITALS: BP 124/59; PULSE 68; RESP 16; TEMP 36.4
--- NOTE | 2022-06-12 09:58 | PN.PCM_ITS ---
History of Present Illness Date of Service: 06/12/22 Chief Complaint: Left foot plantar ulcer History of Wound: 76 year old female presents to clinic for follow up on left plantar foot wound and posterior achilles wound 2/2 to surgical dehiscence. She denies constitutional symptoms. She denies pain. Patient NWB w/ cam boot assisted by knee scooter. No other complaints. Objective Data Objective Data Vital Signs: Vital Signs Temp Pulse Resp BP O2 Del Method 97.5 F L 68 16 124/59 H Room Air 06/12/22 08:28 06/12/22 08:28 06/12/22 08:28 06/12/22 08:28 06/12/22 08:28 Oxygen Delivery Method Room Air Lab / Micro Data Result Diagrams: 06/12/22 09:42 06/12/22 09:42 Physical Exam Narrative Neurovascular status unchanged previous visit. Necrosis to Achilles tendon with mild periwound erythema. There is granular buildup to the wound periphery around the tendon no other signs of infection. Left lower extremity is edematous and painful with calf squeeze. Concerning for DVT versus acute infection. Upon debridement significant amount of tendon was removed tendon tendon function will likely be lost as we have lost probably about 40% of tendon along with the FiberWire maintaining the tendon intact due to concern for poor healing of the wound and possible infection to site. Plantar foot wound appears to be significantly improved at this time decreased i n size with little periwound hyperkeratosis. No other signs of infection. There is some reduction of the equinus deformity after Achilles tendon lengthening. Debridement Note Debridement Note Post-Debridement Measurements and Additional Note: Post-Debridement Measurements/Treatment AMINAH - Nurse 1 - General Ulcer Assessment Start: 05/29/22 10:48 Freq: Status: Active Protocol: AMINAH.EDGAR Activity Type Activity Date Activity User E-sign Co-sign Detail Recorded Client Recorded Date Recorded By Document 05/29/22 10:49 DL [id number] 05/29/22 11:25 DL Document 06/05/22 11:06 BMF [id number] 06/05/22 11:20 BMF Document 06/12/22 08:28 BMF [id number] 06/12/22 08:32 BMF 05/29/22 06/05/22 06/12/22 10:49 11:06 08:28 - Today's Visit Information Type of service Follow-up Visit Follow-up Visit Follow-up Visit (Physician/SHAREPOINT APPLICATION DEVELOPER (Physician/SHAREPOINT APPLICATION DEVELOPER (Physician/SHAREPOINT APPLICATION DEVELOPER ) ) ) Arrival Mode Wheelchair Wheelchair Wheelchair Transfer Assistance None Other None Transfer Assist (Other) STAND BY Patient Identification Verified (Name & Yes Yes Yes ) Patient Requires Transmission-Based No No No Precautions Finger Stick Blood Sugar(mg/dl) (if not checked indicated): Blood Sugar Stated by Patient Vital Signs Temperature (97.8 F-99.1 F) 97.4 F L 97.5 F L Temperature Source Temporal Temporal Pulse Rate (60-100) 78 67 68 Pulse Location Monitor Monitor Monitor Respiratory Rate (12-18) 18 16 16 Respiratory rate source Observation Observation Observation Oxygen Delivery Method Room Air Room Air Blood Pressure (90/60-120/80) 159/76 H 132/52 H 124/59 H Blood Pressure Mean (mm Hg) 103 78 80 Source Monitor Monitor Monitor Position Sitting Sitting Blood Pressure Location Right Arm Right Forearm History Since Last Visit- (Skip if this is Patient's initial visit) Have you changed medications since your No No No last visit? Any new allergies or adverse reactions No No No Had a fall/change in ADL's that may No No No increase risk of falls Signs or symptoms of abuse and/or No No No neglect since last visit Have you been in the hospital since your No No No last visit? Has dressing in place as prescribed Yes Yes Yes Has compression in place as prescribed N/A N/A N/A Has offloadiing in place as prescribed Yes Yes Yes Experienced any changes in pain level or No No No management Left Footwear Removable Cast Removable Cast Walker/Walking Walker/Walking Boot Boot Right Footwear Regular Shoe Pain Scale: 0-10 Numeric Is Patient Pain Free? Yes Yes Yes - Nurse 1 - General Ulcer Measurement Start: 05/29/22 10:48 Freq: Status: Active Protocol: Activity Type Activity Date Activity User E-sign Co-sign Detail Recorded Client Recorded Date Recorded By Document 05/29/22 10:49 DL [id number] 05/29/22 11:25 DL Document 06/05/22 11:06 BM [id number] 06/05/22 11:20 BMF Document 06/12/22 08:28 [facility] [id number] 06/12/22 08:32 [facility] 05/29/22 06/05/22 06/12/22 10:49 11:06 08:28 Wound Center Nurse 1 #10 L Achilles -Combined with other wound No No -Current Size (cm) - Length 3.2 3.7 4.5 -Current Size (cm) - Width 2 1.5 2.5 -Current Size (cm) - Depth 0.1 0.2 0.4 -Total Square Cm 6.4 5.55 11.25 -Date of Last Picture (Recall this 06/05/22 field) -Photo Taken Yes Yes No -Epithelialization Small 1-33% None Present -Tunneling No No -Undermining/Tunneling No No -Circular Undermining No No -Exudate Amt Small Large Large -Exudate Type Serosanguineous Serosanguineous Serosanguineous -Wound Margin Distinct, Distinct, Distinct, Outline Outline Outline Attached Attached Attached -Granulation Amt None Present (0 Small (1-33%) Small (1-33%) %) -Granulation Quality Red Red -Slough/Fibrin Yes Yes -Necrosis Amt Large (67-100%) Large (67-100%) Large (67-100%) -Necrotic Tissue Type Adherent Slough Adherent Slough Adherent Slough -Structure Exposed N/A -Texture (Shannon-wound Skin Appearance) Scarring Assessed, Assessed, Localized Edema Fluctuance ,Scarring -Moisture (Shannon-wound Skin Appearance) No Abnormality Assessed Assessed -Color (Shannon-wound Skin Appearance) No Abnormality Assessed, Assessed, Erythema Erythema -Temperature (Shannon-wound Skin No Abnormality No Abnormality No Abnormality Appearance) (Pt Warm) (Pt Warm) (Pt Warm) -Tenderness on Palpation (Shannon-wound No Yes Yes Skin Appearance) -Ulcer Cleansing Soap and Water Soap and Water Soap and Water -Foul Odor after Cleansing No No -Anesthetic Used 5% Lidocaine 5% Lidocaine 5% Lidocaine Gel Gel Gel -Wound Comment(s) sutures intact SUTURES INTACT #11 L FOOT PLANTAR CLUSTER -Combined with other wound No No -Current Size (cm) - Length 0.6 0.4 0.5 -Current Size (cm) - Width 0.7 0.5 0.5 -Current Size (cm) - Depth 0.6 0.3 0.3 -Total Square Cm 0.42 0.20 0.25 -Date of Last Picture (Recall this 06/05/22 field) -Photo Taken Yes Yes -Epithelialization Small 1-33% Small 1-33% -Tunneling No No -Undermining/Tunneling No No -Undermining/Tunneling Starts (O'clock 10 ) -Undermining/Tunneling Ends (O'clock) 3 -Maximum Distance (cm) 0.6 -Circular Undermining No No -Exudate Amt Small Small Medium -Exudate Type Serosanguineous Serosanguineous Serosanguineous -Wound Margin Distinct, Distinct, Distinct, Outline Outline Outline Attached Attached Attached -Granulation Amt None Present (0 Large (67-100%) Large (67-100%) %) -Granulation Quality Red Red -Slough/Fibrin Yes Yes -Necrosis Amt Large (67-100%) Small (1-33%) Small (1-33%) -Necrotic Tissue Type Adherent Slough Adherent Slough Adherent Slough -Structure Exposed N/A -Texture (Shannon-wound Skin Appearance) Scarring Assessed, Assessed, Scarring Scarring -Moisture (Shannon-wound Skin Appearance) No Abnormality Assessed Assessed -Color (Shannon-wound Skin Appearance) No Abnormality Assessed Assessed -Temperature (Shannon-wound Skin No Abnormality No Abnormality No Abnormality Appearance) (Pt Warm) (Pt Warm) (Pt Warm) -Tenderness on Palpation (Shannon-wound No No No Skin Appearance) -Ulcer Cleansing Soap and Water Soap and Water Soap and Water -Foul Odor after Cleansing No No No -Anesthetic Used 5% Lidocaine 5% Lidocaine 5% Lidocaine Gel Gel Gel WC - Nurse 2 - General Ulcer CM Notes Start: 05/29/22 10:48 Freq: Status: Active Protocol: Activity Type Activity Date Activity User E-sign Co-sign Detail Recorded Client Recorded Date Recorded By Document 05/29/22 11:16 EULOGIO [id number] 05/29/22 11:18 Document 06/05/22 13:21 EULOGIO [id number] 06/05/22 13:24 Document 06/12/22 09:04 [id number] 06/12/22 09:14 05/29/22 06/05/22 06/12/22 11:16 13:21 09:04 Wound Center Nurse 2 #10 L Achilles -Time 13:21 09:04 -Correct Patient Yes Yes -Correct Side, Site, Position Yes Yes -Correct Procedure Yes Yes -Procedure Performed Yes Yes -Type of Procedure Debridement Debridement -Clinical Debridement Muscle / Fascia Muscle / Fascia -Tissue Removed Muscle,Fascia Tendon -Post Debridement (cm) - Length 3.8 4.5 -Post Debridement (cm) - Width 1.5 2.6 -Post Debridement (cm) - Depth 0.2 0.5 -Total Square (Post) (cm) 5.70 11.70 -Area of Debridement (cm) - Length 3.8 4.5 -Area of Debridement (cm) - Width 1.5 2.6 -Total Square (Area) (cm) 5.70 11.70 -Tunneling No No -Undermining/Tunneling No No -Circular Undermining No No -Wound/Ulcer Outcome Not Healed Not Healed -Ulcer Cleansing Rinsed/ Rinsed/ Irrigated with Irrigated with Saline Saline -Foul Odor after Cleansing No No -Bioengineered Tissue No No -Bleeding Controlled with Pressure Pressure -Treatment Response Procedure Procedure Tolerated Well Tolerated Well -Offloading No Yes -Type of Offloading Camwalker Knee Walker -Assistive Device(s) Wheelchair -Debridement - Muscle / Fascia, 1st Yes Yes 20sq cm #11 L FOOT PLANTAR CLUSTER -Time 11:16 13:22 09:05 -Correct Patient Yes Yes Yes -Correct Side, Site, Position Yes Yes Yes -Correct Procedure Yes Yes Yes -Procedure Performed Yes Yes Yes -Type of Procedure Debridement Debridement Debridement -Clinical Debridement Subcutaneous Subcutaneous Subcutaneous -Tissue Removed Subcutaneous Subcutaneous Subcutaneous -Post Debridement (cm) - Length 0.7 0.5 0.6 -Post Debridement (cm) - Width 0.7 0.5 0.6 -Post Debridement (cm) - Depth 0.3 0.3 0.4 -Total Square (Post) (cm) 0.49 0.25 0.36 -Area of Debridement (cm) - Length 0.7 0.5 0.6 -Area of Debridement (cm) - Width 0.7 0.5 0.6 -Total Square (Area) (cm) 0.49 0.25 0.36 -Tunneling No No No -Undermining/Tunneling No No No -Circular Undermining No No No -Wound/Ulcer Outcome Not Healed Not Healed Not Healed -Ulcer Cleansing Rinsed/ Rinsed/ Rinsed/ Irrigated with Irrigated with Irrigated with Saline Saline Saline -Foul Odor after Cleansing No No No -Bioengineered Tissue No No No -Bleeding Controlled with Pressure Pressure Pressure -Treatment Response Procedure Procedure Procedure Tolerated Well Tolerated Well Tolerated Well -Offloading Yes No Yes -Type of Offloading Camwalker Knee Walker -Assistive Device(s) Wheelchair Wheelchair -Debridement - Subq, 1st 20sq cm Yes Yes Yes Pain Scale: 0-10 Numeric Is Patient Pain Free? Yes Yes Yes - Nurse 3 - General Ulcer D/C NN Start: 05/29/22 10:48 Freq: Status: Active Protocol: Activity Type Activity Date Activity User E-sign Co-sign Detail Recorded Client Recorded Date Recorded By Document 05/29/22 11:25 DL [id number] 05/29/22 11:28 DL Document 06/05/22 12:03 DL [id number] 06/05/22 12:04 DL Document 06/12/22 09:25 [facility] [id number] 06/12/22 09:25 [facility] 05/29/22 06/05/22 06/12/22 11:25 12:03 09:25 Wound Care Nurse 3 #10 L Achilles -Ulcer Cleansing Rinsed/ Wound Cleanser Soap and Water Irrigated with Saline -Foul Odor after Cleansing No No No -Primary Dressing Applied Aquacel AG 4x4 -Other Dressing dakins hydrogel ABD -Primary Dressing Covered/Secured with Dry Gauze & Dry Gauze & Dry Gauze & Roll Gauze, Roll Gauze, Roll Gauze, Secured with Secured with Secured with Tape Tape Tape -Aquacel AG 4x4 1 #11 L FOOT PLANTAR CLUSTER -Ulcer Cleansing Rinsed/ Rinsed/ Soap and Water Irrigated with Irrigated with Saline Saline -Foul Odor after Cleansing No No No -Primary Dressing Applied C Hydrogel ($) -Other Dressing hydrogel hydrogel ABD -Primary Dressing Covered/Secured with Dry Gauze & Dry Gauze & Dry Gauze & Roll Gauze, Roll Gauze, Roll Gauze, Secured with Secured with Secured with Tape Tape Tape Treatment Response Procedure Procedure Procedure Tolerated Well Tolerated Well Tolerated Well Pain Scale: 0-10 Numeric Is Patient Pain Free? Yes Yes Yes WC - Visit Discharge Discharge Condition Stable Stable Stable Ambulatory Status Wheelchair Wheelchair Wheelchair Transportation Private Auto Private Auto Private Auto Facility Type Home Health Notes: dressing a pplied per B GRICELDA Mendoza today Orders Sent Yes Assessment/Plan Assessment/Plan (1) Non-pressure chronic ulcer of left ankle with necrosis of muscle: CODE(S): L97.323 - Non-pressure chronic ulcer of left ankle with necrosis of muscle PLAN: Exam performed. Dehiscence to Achilles tendon site with exposed Achilles tendon. Discussed this with patient. Plantar foot wound debrided today. Wound to plantar left foot excisionally down to level of subcutaneous tissue of all nonviable tissue while the left Achilles tendon wound was debrided down to and including level of tendon involvement nonviable tissue while the wound to the plantar foot was debrided down to the level of subcutaneous tissue of all nonviable tissue using 3mm dermal curette and #15 blade without incident. Healthy bleeding noted to the area hemostasis obtained with light compression. No anesthesia due to neuropathy. Patient tolerated procedure well. Oral consent obtained. Pre and postdebridement measurements document nursing notes. hydrogel to achilles site, hydrogel to plantar foot, DSD no compression. Daily dressing changes. Due to left leg swelling and pain with calf squeeze duplex ultrasound ordered. Wound was flushed and cultured today. Based on intraoperative cultures patient was prescribed Augmentin and ciprofloxacin for strep agalactiae and Serratia marcescens per [employer]. Additional inflammatory lab work as well as CBC and CMP ordered as well. Discussed the importance of nonweightbearing and wound healing this is likely contributing to the dehiscence of the surgical site due to noncompliance of nonweightbearing restrictions. Patient will follow up in 1 week. (2) Non-pressure chronic ulcer of other part of left foot with fat layer exposed: CODE(S): L97.522 - Non-pressure chronic ulcer of other part of left foot with fat layer exposed
[2022-06-12 10:28] LABS: Absolute Lymphocyte Count 1.84 X10^3/uL (0.83-4.51); Absolute Neutrophil Count 6.4 X10^3/uL (2.0-7.7); Basophil# 0.03 X10^3/uL; Basophil% 0.3 % (0-1); Eosinophil# 0.17 X10^3/uL; Eosinophils% 1.9 % (0-5); Erythrocyte Sedimentation Rate 31 mm/hr (0-30); Hematocrit 39.6 % (37-47); Hemoglobin 12.6 g/dL (12.0-15.0); Lymphocyte # 1.84 X10^3/ul (0.83-4.51); Lymphocyte % 20.4 % (19-41); Mean Corp Hgb Conc 31.8 g/dL (32-36); Mean Corpuscular Hgb 25.8 pg (27.0-32.0); Mean Corpuscular Volume 81.1 fL (81-99); Mean Platelet Vol. 9.6 fl (6.2-12.0); Monocyte# 0.59 X10^3/uL; Monocyte% 6.5 % (0-10); NRBC Flagged by Analyzer 0 % (0-5); Neutrophil # 6.37 X10^3/uL (2.7-7.7); Neutrophil % 70.7 % (47-70); POSITIVE MORPHOLOGY YES; Platelet Count 169 K/mm3 (150-450); RBC Distribution Width CV 21.1 % (11.6-14.6); RBC Distribution Width SD 61.9 fl (35.1-43.9); Red Blood Count 4.88 M/mm3 (4.2-5.4)
[2022-06-12 10:46] LABS: Hemoglobin A1c 7.4 % (3.8-5.6)
--- NOTE | 2022-06-12 11:09 | VDLE_ITS ---
Reason For Study: LEG EDEMA RIGHT LEFT GSV is normal. GSV is normal. CFV is compressible, spontaneous, phasic, CFV is compressible, spontaneous, phasic, competent and demonstrates normal competent, and demonstrates normal augmentation. augmentation. FV is compressible, spontaneous, phasic, FV is compressible, spontaneous, phasic, competent and demonstrates normal competent and demonstrates normal augmentation. augmentation. POP V is compressible, spontaneous, phasic POP V is compressible, spontaneous, phasic, and competent competent and demonstrates normal T/P Trunk is compressible. augmentation. PTV is compressible. T/P Trunk is compressible. RT PerV is compressible. PTV is compressible. RT Gastrocnemius Veins are dilated and non- LT PerV is compressible. compressible. Hypoechoic intraluminal filling LT SSV is partially compressible with bright, is noted and no flow seen in color or pulsed hyperechoic intraluminal echoes noted. wave doppler. Procedure This is a venous duplex using B-mode, color flow and spectral Doppler. Exam performed in department. The exam was diagnostic. A preliminary report was called and/or faxed to GRICELDA Shaver at Dr. Macias's office. The patient was referred to [facility] ED for treatment. VL/Venous Duplex US - Benny Extrem Interpretation Summary Acute deep venous thrombosis right gastrocnemius vein. Chronic superficial thrombophlebitis left small saphenous vein No evidence for proximal involvement and bilateral great saphenous veins are pa tent and compressible Ordering Physician: Claus Macias Referring Physician: Con Johnson Performed By: Bridger Gibbons RVT
[2022-06-12 11:13] LABS: Anisocytosis RARE
[2022-06-12 11:17] LABS: ALB/GLOB Ratio 0.6 RATIO (0.9-2.4); AST(SGOT) 20 U/L (15-37); Alanine Aminotransfer ALT/SGPT 48 U/L (13-56); Albumin, Serum 2.7 g/dL (3.2-5.0); Alkaline Phosphatase 100 U/L (45-117); Anion Gap 8 (5-15); BUN 52 mg/dL (7-18); BUN/Creat Ratio 39.1 RATIO (10-20); CRP 3.62 mg/L (0.0-3.0); Calcium,Total 8.6 mg/dL (8.5-10.1); Chloride 107 mmol/L (98-107); Creatinine, Serum 1.33 mg/dL (0.55-1.02); EST Glomerular Filtration Rate 41 mL/min (>60); Est Glom Filt Rate - Afr Amer 50 mL/min (>60); Globulin 4.3 g/dL (2.2-4.2); Glucose 341 mg/dL (74-106); Sodium Level 136 mmol/L (136-145)
== END 2022-06-12 16:12 | disposition home or self-care (01) ==
LOC: CVS 11:00
PROVIDERS: PCP Family Medicine; Referring Provider Podiatrist; Visit Provider Podiatrist
DX: T81.31XA Disruption of external operation (surgical) wound, not elsewhere classified, initial encounter (principal); L97.323 Non-pressure chronic ulcer of left ankle with necrosis of muscle; L97.422 Non-pressure chronic ulcer of left heel and midfoot with fat layer exposed; Z79.4 Long term (current) use of insulin; R60.0 Localized edema; Y83.8 Other surgical procedures as the cause of abnormal reaction of the patient, or of later complication, without mention of misadventure at the time of the procedure; G62.9 Polyneuropathy, unspecified; Z79.01 Long term (current) use of anticoagulants; Z79.02 Long term (current) use of antithrombotics/antiplatelets; Z79.899 Other long term (current) drug therapy
CPT/HCPCS: 11042; 11043; 36415; 80053; 83036; 85025; 85652; 86140; 87070; 87075; 87077; 87186; 87205; 93970

== ENCOUNTER 2022-06-12 12:19 | Emergency (ER) | payer MEDICARE, OTHER, SELFPAY ==
[2022-06-12 12:20] VITALS: BP 164/52; PULSE 75; RESP 16; TEMP 36.6; O2SAT 97
--- NOTE | 2022-06-12 14:37 | ED.VIS.LOWEX ---
HPI History of Present Illness HPI Narrative: Patient presents with left calf pain and swelling that became worse today. 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 This was positive for a DVT in the right gastrocnemius vein. Patient was then referred to the emergency department for further treatment. Patient denies any chest pain or shortness of breath. Patient states her pain is worse with standing. Patient admits to some tingling but states this is chronic. Patient admits to some subjective chills but denies any fevers. Chief Complaint: Lower Extremity Injury Onset/Context/Timing Onset: Weeks Context: Gradual Onset Timing: Continuous Quality of Pain: Burning and Stabbing Location: Left calf Worsened by: Standing Relieved by: Rest and elevation Associated Symptoms Associated Symptoms: Positive for Parasthesia; Negative for Weakness or Loss of Funtion PFSH [facility] Medical History Acquired equinus deformity of left foot Acute hyperkalemia Amput foot, unilat-complicated Anemia Anxiety Atherosclerotic heart disease of [place] coronary artery without angina pectoris BiPAP (biphasic positive airway pressure) dependence Blackout Cardiology follow-up encounter Carpal tunnel syndrome Charcot foot due to diabetes mellitus Charcot's joint of left foot CPAP (continuous positive airway pressure) dependence Delayed wound healing Diabetes mellitus type 2 in obese DVT (deep venous thrombosis) Equinus contracture of left ankle Essential hypertension GERD (gastroesophageal reflux disease) GI bleed Gout History of blood clots History of Clostridium difficile infection History of CVA (cerebrovascular accident) History of echocardiogram History of edema History of IBS History of non-ST elevation myocardial infarction (NSTEMI) (08/2020) History of renal disease History of stress test Humerus fracture Hyperlipidemia Hypothyroidism IBS (irritable bowel syndrome) Iron deficiency anemia Kidney stones Left-sided extracranial carotid artery stenosis Migraines MRSA infection Non-pressure chronic ulcer of left ankle with necrosis of muscle Non-pressure chronic ulcer of other part of left foot with fat layer exposed Non-pressure chronic ulcer of other part of left foot with fat layer exposed 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 evidence of necrosis Non-smoker Obesity Opioid dependence Osteoporosis Other acute postprocedural pain PAD (peripheral artery disease) Peripheral arterial occlusive disease Post-menopausal Restless legs Rheumatoid arthritis Sleep apnea Stenosis of right subclavian artery Thyroid disease Type 2 diabetes mellitus with diabetic polyneuropathy Type 2 diabetes mellitus with diabetic polyneuropathy Type 2 diabetes mellitus with foot ulcer Ulcer of abdomen wall with fat layer exposed Ulcer of left foot with fat layer exposed Vitamin D deficiency Wears dentures Wears glasses Home Medications pravastatin 40 mg tablet 40 mg PO QHS CHOLESTEROL 03/10/17 [History Last Taken 12/07/20] allopurinol 100 mg tablet 100 mg PO DAILY GOUT 03/17/20 [History Last Taken 12/08/20] calcium citrate 200 mg (950 mg) tablet 200 mg PO BID supplement ##0 03/17/20 [Rx Last Taken 12/08/20] bmgfdi-vpvcifgo-ujaaldx 24,000-76,000-120,000 unit capsule,delayed rel (Creon) 1 cap PO BID IBS 04/05/20 [History Last Taken 12/08/20] levothyroxine 75 mcg tablet 75 mcg PO QHS THYROID 08/17/20 [History Last Taken 12/07/20] metoclopramide HCl 10 mg tablet 10 mg PO Q8H PRN PRN Nausea 08/17/20 [History Last Taken 12/07/20] multivitamin-ferrous fumarate-folic acid 18 mg-400 mcg tablet 0.5 tablet PO BID SUPPLEMENT 08/17/20 [History Last Taken 12/08/20] trazodone 100 mg tablet 100 mg PO QHS PRN PRN Sleep 08/17/20 [History Last Taken 12/07/20] venlafaxine 100 mg tablet 100 mg PO BID Mood 08/17/20 [History Last Taken 05/04/22] acetaminophen 500 mg tablet 1,000 mg PO Q8H PRN PRN Pain Score 1-3 #0 tabs 09/09/20 [Rx Last Taken 12/08/20] tizanidine 4 mg tablet 4 mg PO Q8H PRN PRN Muscle Spasm #20 tabs 09/09/20 [Rx Last Taken 12/07/20] arginine 7 gram-glutam 7 gram-CaHMB 1.5 vypd-ipzqn-xr-min oral pwd pkt 1 packet PO BIDCM supplement 09/19/20 [History Last Taken 12/08/20] morphine 10 mg/5 mL oral solution 6 ml PO Q6H PRN PRN Pain 09/19/20 [History Last Taken 12/07/20] nitroglycerin 400 mcg/spray translingual 0.4 mg sublingual TID PRN PRN chest pain 09/19/20 [History Last Taken 1 Week Ago ~12/01/20] polyethylene glycol 3350 17 gram oral powder packet 17 gm PO DAILY constipation 09/19/20 [History Last Taken 12/08/20] sennosides 8.6 mg-docusate sodium 50 mg tablet 1 tablet PO QHS constipation 09/19/20 [History Last Taken 12/07/20] esomeprazole magnesium 20 mg capsule,delayed release 20 mg PO BID GERD 12/08/20 [History Last Taken 05/04/22] fexofenadine 180 mg tablet 180 mg PO DAILY ALLERGIES 12/08/20 [History Last Taken 12/08/20] benzonatate 100 mg capsule (Jenny Gibson) 100 mg PO TID PRN cough #90 caps 01/11/21 [Rx Last Taken Unknown] clopidogrel 75 mg tablet 75 mg PO DAILY CAD #90 tabs 10/24/21 [Rx Last Taken 05/03/22] amlodipine 5 mg tablet 5 mg PO BID HYPERTENSION #180 tabs 12/14/21 [Rx Last Taken 05/04/22] isosorbide mononitrate 60 mg tablet,extended release 24 hr See Rx Instructions .Route .COMPLEX #270 TABLETS 12/15/21 [Rx Last Taken 05/04/22] carvedilol 25 mg tablet 25 mg PO BID BP #180 tabs 02/02/22 [Rx Last Taken 05/04/22] oxycodone 5 mg capsule 5 mg PO Q6H PRN pain 7 days #28 caps 05/04/22 [Rx Last Taken Unknown] amoxicillin 875 mg-potassium clavulanate 125 mg tablet 1 tab PO BID #20 tabs 06/12/22 [Rx Last Taken Unknown] apixaban 5 mg tablet (Eliquis) 5 mg PO BID #74 tabs 06/12/22 [Rx Last Taken Unknown] ciprofloxacin HCl 750 mg tablet 750 mg PO BID #20 tabs 06/12/22 [Rx Last Taken Unknown] insulin aspart U-100 100 unit/mL (3 mL) subcutaneous pen (Novolog FlexPen U-100 Insulin aspart) 8 unit subcut BID 06/12/22 [History Last Taken Unknown] insulin detemir U-100 100 unit/mL (3 mL) subcutaneous pen (Levemir FlexTouch U-100 Insulin) 20 unit subcut BID 06/12/22 [History Last Taken Unknown] insulin lispro 100 unit/mL subcutaneous pen 8 unit subcut BID Blood sugar 06/12/22 [History Last Taken Unknown] linaclotide 72 mcg capsule 72 mcg PO DAILY PRN STOOL 06/12/22 [History Last Taken Unknown] Allergy/AdvReac Type Severity Reaction Status Date / Time doxycycline Allergy Severe all over Verified 06/12/22 12:20 body hives and itching atorvastatin calcium Allergy Unknown Verified 06/12/22 12:20 [From Lipitor] bupropion HCl Allergy Unknown Verified 06/12/22 12:20 [From Wellbutrin] mannitol [From Reclast] Allergy joint Verified 06/12/22 12:20 pain, unable to breathe, unable to walk propoxyphene napsylate Allergy Unknown Verified 06/12/22 12:20 [From Darvocet-N 100] Quinolones Allergy Unknown Verified 06/12/22 12:20 Tetanus Vaccines and Toxoid Allergy Chest Verified 06/12/22 12:20 [Tetanus Vaccines & Toxoid] tightness zoledronic acid Allergy joint Verified 06/12/22 12:20 [From Reclast] pain,unable to breathe, unaable to walk gemfibrozil AdvReac Intermediate Unknown Verified 06/12/22 12:20 NSAIDS (Non-Steroidal AdvReac Other Verified 06/12/22 12:20 Anti-Inflamma Family History Mother , age 75 Cancer CVA (cerebral vascular accident) CAD (coronary artery disease) Father CAD (coronary artery disease) History of coronary artery bypass graft Sister CAD (coronary artery disease) Multiple sclerosis Other Anxiety Bleeding disorder Depression Diabetes Heart disease High cholesterol Hypertension Surgical History H/O coronary artery bypass surgery (09/09/14) History of angioplasty of peripheral vessel (12/2014) History of appendectomy History of cholecystectomy History of [place] amputation of left foot History of coronary artery stent placement (09/22/20) History of excision of lesion History of foot surgery History of gastric bypass History of neck surgery History of ventral hernia repair Hx of ventral hernia repair Social History Smoking Status: Never smoker alcohol intake: never substance use type: does not use caffeine: Yes Type: coffee what type of physical activity do you participate in: none seatbelt use: sometimes do you feel safe at home: Yes additional social history: DOES NOT TAKE ASPIRIN DOES TAKE IBUPROFEN NEEDED ROS ROS ED Constitutional Constitutional ED: Reports chills and subjective; Denies fever(s) Eyes Eyes: Denies blurry vision or change in vision ENT ENT ED: Denies rhinorrhea or sore throat Cardiovascular Cardiovascular: Denies chest pain or palpitations Respiratory/Chest Respiratory/Chest: Denies cough or dyspnea Gastrointestinal Gastrointestinal: Denies nausea or vomiting Genitourinary Genitourinary ED: Denies dysuria or hematuria Musculoskeletal Musculoskeletal: Denies back pain or neck pain Integumentary Denies abscess or rash Neurologic Neurologic: Denies headache(s) or weakness Allergic/Immunologic Allergic/Immunologic ED: Denies mouth swelling or urticaria EXAM Physical Exam Const Vital Signs: 06/12/22 12:20 Temperature 97.8 F Temperature Source Temporal Pulse Rate 75 Respiratory Rate 16 Blood Pressure 164/52 H Blood Pressure Mean 89 Pulse Ox 97 Oxygen Delivery Method Room Air Positive well nourished and well developed General Appearance ED: well developed and NAD HEENT Reports moist mucous membranes Extremity Extremity Narrative: There is tenderness and mild edema over the left calf. There is no bony crepitance or step-off. There is no tenderness over the thigh. There is no tenderness over the right calf. Sensation was intact to light touch bilaterally in the lower extremities. Neuro oriented x3, CN's II-XII intact bilaterally, moves all extremities and no sensory deficits noted Sensorium / Orientation: alert Motor Exam: strength 5/5 throughout Psych mental status grossly normal MDM MDM MDM Narrative Medical decision making narrative: Patient was given a dose of Eliquis here. Patient was given a prescription for Eliquis. Case was discussed with Dr. Correa who was covering for Dr. Macias. He is agreeable with this plan and will follow up with the patient. Patient was instructed to keep her left leg elevated. Patient was instructed to follow-up with Dr. Macias in the office. Patient understands and is agreeable with the plan. All questions were answered. Discharge Plan Triage Chief Complaint: Lower Extremity Injury ED Provider: Con Last Dx/Rx/DC Orders Clinical Impression: DVT of lower limb, acute, PAD (peripheral artery disease) Instructions: ED Deep Vein Thrombosis (DVT) Prescriptions: New Eliquis 5 mg tablet 5 mg PO BID Qty: 74 0RF Rx Instructions: 10 mg twice a day for the first week. Then 5 mg twice a day. No Action Creon 24,000-76,000 -120,000 unit capsule,delayed release(DR/EC) 1 cap PO BID Rx Instructions: administer with meals and/or snacks insulin aspart U-100 [Novolog FlexPen U-100 Insulin] 100 unit/mL (3 mL) insulin pen 8 unit subcut BID Levemir FlexTouch U-100 Insuln 100 unit/mL (3 mL) insulin pen 20 unit subcut BID pravastatin 40 MG tablet 40 mg PO QHS Label Comments: CHOLESTEROL allopurinol 100 MG tablet 100 mg PO DAILY calcium citrate 200 MG tablet 200 mg PO BID Qty: 0 0RF Rx Instructions: Hold it wile taking antibiotic levothyroxine 75 MCG tablet 75 mcg PO QHS Label Comments: 1 (ONE) TABLET BEDTIME venlafaxine 100 MG tablet 100 mg PO BID Rx Instructions: Takes first dose in am and then second dose around 1700. Does not want it later in the evening. trazodone 100 MG tablet 100 mg PO QHS PRN PRN (Reason: Sleep) metoclopramide HCl 10 MG tablet 10 mg PO Q8H PRN PRN (Reason: Nausea) Label Comments: TAKE 1 (ONE) TABLET EVERY 8 HOURS NEEDED FOR NAUSE AND/OR CONSTIPATION rdazvkkwejhs-dsnm-qdatf acid 1 EACH tablet 0.5 tablet PO BID Label Comments: TAKE 1 TABLET BY MOUTH EVERY DAY linaclotide 72 mcg capsule 72 mcg PO DAILY PRN (Reason: STOOL) acetaminophen 500 MG tablet 1,000 mg PO Q8H PRN PRN (Reason: Pain Score 1-3) Qty: 0 0RF tizanidine 4 MG tablet 4 mg PO Q8H PRN PRN (Reason: Muscle Spasm) Qty: 20 0RF insulin lispro 100 unit/mL insulin pen 8 unit subcut BID nitroglycerin 0.4 MG bottle 0.4 mg SL TID PRN PRN (Reason: chest pain) morphine 10 MG/5 ML solution 6 ml PO Q6H PRN PRN (Reason: Pain) polyethylene glycol 3350 17 GM packet 17 gm PO DAILY Label Comments: pt states takes only benefiber -or- miralex everyday as needed for constipation. sennosides-docusate sodium 1 TABLET tablet 1 tablet PO QHS sjzpw-akep-ZlEAA-wlnpuw-ly-tys 1 PACKET packet 1 packet PO BIDCM esomeprazole magnesium 20 mg capsule,delayed release(DR/EC) 20 mg PO BID Label Comments: TAKE 1 CAPSULE BY MOUTH EVERY DAY fexofenadine 180 mg Tablet 180 mg PO DAILY benzonatate [Tessalon Perles] 100 mg capsule 100 mg PO TID PRN (Reason: cough) Qty: 90 0RF oxycodone 5 mg capsule 5 mg PO Q6H PRN (Reason: pain) 7 Days Qty: 28 0RF amoxicillin-pot clavulanate 875-125 mg tablet 1 tab PO BID Qty: 20 0RF ciprofloxacin HCl 750 mg tablet 750 mg PO BID Qty: 20 0RF clopidogrel 75 mg tablet 75 mg PO DAILY Qty: 90 3RF Label Comments: ask about stopping amlodipine 5 mg tablet 5 mg PO BID Qty: 180 3RF isosorbide mononitrate 60 mg tablet extended release 24 hr See Rx Instructions .ROUTE .COMPLEX Qty: 270 3RF Dose Instruction: TAKE 1 TABLET IN THE MORNING AND 2 IN THE EVENING FOR HEART HEALTH Rx Instructions: TAKE 1 TABLET IN THE MORNING AND 2 IN THE EVENING FOR HEART HEALTH carvedilol 25 mg tablet 25 mg PO BID Qty: 180 3RF Rx Instructions: TAKE 1 TABLET BY MOUTH TWICE A DAY Primary Care Provider: Con Johnson Referrals: Claus Macias DPM [Med Staff - Active Staff] - 5-7 Days Con Johnson MD [Primary Care Provider] - 5-7 Days Disposition Disposition: Home, Self Care
== END 2022-06-12 14:59 | disposition home or self-care (01) ==
PROVIDERS: Emergency Provider Emergency Medicine; PCP Family Medicine; Visit Provider Emergency Medicine
DX: I82.461 Acute embolism and thrombosis of right calf muscular vein (principal); E11.51 Type 2 diabetes mellitus with diabetic peripheral angiopathy without gangrene; L97.323 Non-pressure chronic ulcer of left ankle with necrosis of muscle; L97.522 Non-pressure chronic ulcer of other part of left foot with fat layer exposed; E11.42 Type 2 diabetes mellitus with diabetic polyneuropathy; I73.9 Peripheral vascular disease, unspecified; E78.5 Hyperlipidemia, unspecified; I10 Essential (primary) hypertension; I25.10 Atherosclerotic heart disease of native coronary artery without angina pectoris; M79.89 Other specified soft tissue disorders; R20.2 Paresthesia of skin; I80.02 Phlebitis and thrombophlebitis of superficial vessels of left lower extremity
CPT/HCPCS: 11042; 11043; 36415; 80053; 83036; 85025; 85652; 86140; 87070; 87075; 87077; 87186; 87205; 93970; 99282

== ENCOUNTER → 2022-07-31 | Outpatient (CLI) | payer MEDICARE, OTHER, SELFPAY ==
[2022-07-31 17:44] LABS: Absolute Lymphocyte Count 2.66 X10^3/uL (0.83-4.51); Absolute Neutrophil Count 4.6 X10^3/uL (2.0-7.7); Basophil# 0.02 X10^3/uL; Basophil% 0.2 % (0-1); Eosinophil# 0.29 X10^3/uL; Eosinophils% 3.5 % (0-5); Hematocrit 43.5 % (37-47); Hemoglobin 13.6 g/dL (12.0-15.0); Lymphocyte # 2.66 X10^3/ul (0.83-4.51); Lymphocyte % 32.1 % (19-41); Mean Corp Hgb Conc 31.3 g/dL (32-36); Mean Corpuscular Hgb 26.3 pg (27.0-32.0); Mean Platelet Vol. 10.6 fl (6.2-12.0); Monocyte# 0.71 X10^3/uL; Monocyte% 8.6 % (0-10); NRBC Flagged by Analyzer 0 % (0-5); Neutrophil # 4.58 X10^3/uL (2.7-7.7); Neutrophil % 55.4 % (47-70); Platelet Count 151 K/mm3 (150-450); RBC Distribution Width CV 16.3 % (11.6-14.6); RBC Distribution Width SD 50.2 fl (35.1-43.9); Red Blood Count 5.18 M/mm3 (4.2-5.4); White Blood Count 8.3 K/mm3 (4.4-11.0)
[2022-07-31 18:10] LABS: ALB/GLOB Ratio 0.7 RATIO (0.9-2.4); AST(SGOT) 37 U/L (15-37); Alanine Aminotransfer ALT/SGPT 103 U/L (13-56); Albumin, Serum 2.9 g/dL (3.2-5.0); Alkaline Phosphatase 104 U/L (45-117); Anion Gap 8 (5-15); BUN 52 mg/dL (7-18); BUN/Creat Ratio 33.3 RATIO (10-20); Calcium,Total 8.5 mg/dL (8.5-10.1); Chloride 104 mmol/L (98-107); Creatinine, Serum 1.56 mg/dL (0.55-1.02); EST Glomerular Filtration Rate 34 mL/min (>60); Est Glom Filt Rate - Afr Amer 42 mL/min (>60); Globulin 4.2 g/dL (2.2-4.2); Glucose 409 mg/dL (74-106); Magnesium 2.2 mg/dL (1.6-2.6); Potassium 4.2 mmol/L (3.5-5.1); Protein, Total 7.1 g/dL (6.4-8.2); Sodium Level 134 mmol/L (136-145)
== END | disposition home or self-care (01) ==
LOC: MFPLAB 14:41
PROVIDERS: PCP Family Medicine; Referring Provider Family Medicine; Visit Provider Family Medicine
DX: E11.22 Type 2 diabetes mellitus with diabetic chronic kidney disease (principal); R53.83 Other fatigue
CPT/HCPCS: 36415; 80053; 83735; 85025

== ENCOUNTER → 2022-08-06 | Outpatient (CLI) | payer MEDICARE, OTHER, SELFPAY ==
--- NOTE | 2022-08-06 11:20 | ART_ITS ---
Reason For Study: Ulcer Procedure A bilateral lower extremity continuous wave Doppler with analog waveform analysis,segmental pressures,and ankle brachial indexes without exercise. Left Segmental Pressures Left brachial= 158mmHg. Left posterior tibial artery = 150mmHg. Left dorsalis pedis artery = >254mmHg. The left dorsalis pedis waveforms are triphasic. The left posterior tibial artery waveforms are biphasic. Right Segmental Pressures Right brachial= 153mmHg. Right posterior tibial artery = 117mmHg. Right dorsalis pedis artery = 72mmHg. The right dorsalis pedis waveforms are biphasic. The right posterior tibial artery waveforms are biphasic. Indices The right ankle brachial index by the dorsalis pedis is 0.46. The right ankle brachial index by the posterior tibial artery is 0.74. The left ankle brachial index by the dorsalis pedis is NC. The left ankle brachial index by the posterior tibial artery is 0.95. . Known right Gastroc vein DVT 06/12/2022, did not take pressures up leg. VL/Lower Ext Art Exam w/o Exercis Interpretation Summary Right JOSE E 0.74, moderate arterial insufficiency. Doppler/PVR waveforms of the r ight ankle moderately diminished at rest. Left JOSE E 0.95, mild arterial insufficiency. Doppler/PVR waveforms of the left a nkle mildly diminished at rest. Ordering Physician: Con Terry Referring Physician: Con Johnson MD Performed By: Shabnam Orellana RVT
== END | disposition home or self-care (01) ==
LOC: CVS 11:19
PROVIDERS: PCP Family Medicine; Referring Provider Surgery Trauma Surgery; Visit Provider Surgery Trauma Surgery
DX: I73.9 Peripheral vascular disease, unspecified (principal)
CPT/HCPCS: 93923

== ENCOUNTER 2022-09-03 06:00 | Inpatient (IN) | payer MEDICARE, OTHER, SELFPAY ==
--- NOTE | 2022-08-23 12:16 | EKG12_ITS ---
Test Reason : PREOP Blood Pressure : / mmHG Vent. Rate : 068 BPM Atrial Rate : 068 BPM P-R Int : 198 ms QRS Dur : 092 ms QT Int : 416 ms P-R-T Axes : 000 -36 039 degrees QTc Int : 442 ms Sinus rhythm with occasional Premature ventricular complexes and Premature atrial complexes Left axis deviation Abnormal ECG Confirmed by MIGUEL ANGEL ANAYA, FADI ([id number]), online editor SAM REDDING ([id number]) on 08/27/2022 10:43:40 AM Referred By: CLARISSA Confirmed By:POLLY MICHELLE MD
[2022-08-23 13:40] LABS: Hematocrit 41.8 % (37-47); Hemoglobin 13.3 g/dL (12.0-15.0); Mean Corp Hgb Conc 31.8 g/dL (32-36); Mean Corpuscular Hgb 27.2 pg (27.0-32.0); Mean Corpuscular Volume 85.5 fL (81-99); Platelet Count 181 K/mm3 (150-450); RBC Distribution Width CV 15.5 % (11.6-14.6); RBC Distribution Width SD 47.8 fl (35.1-43.9); Red Blood Count 4.89 M/mm3 (4.2-5.4); White Blood Count 7.7 K/mm3 (4.4-11.0)
[2022-08-23 13:54] LABS: Hemoglobin A1c 9.5 % (3.8-5.6)
[2022-08-23 14:11] LABS: Anion Gap 7 (5-15); BUN 63 mg/dL (7-18); Calcium,Total 8.4 mg/dL (8.5-10.1); Chloride 108 mmol/L (98-107); EST Glomerular Filtration Rate 39 mL/min (>60); Est Glom Filt Rate - Afr Amer 47 mL/min (>60); Glucose 290 mg/dL (74-106); Sodium Level 135 mmol/L (136-145)
[2022-08-23 14:32] LABS: Thyroid Stim Hormone (TSH) 1.37 uIU/mL (0.358-3.74)
[2022-09-03] VITALS (11 sets, daily range): BP systolic 123–167; BP diastolic 50–75; PULSE 56–80; RESP 10–16; TEMP 36.2–37.1; O2SAT 94–97; BMI 29.2
[2022-09-03] MEDS: Lactated Ringers 1,000 ML 15 ML IV ×2 (07:02→09:56)
[2022-09-03] MEDS: Vancomycin IV 1,000 MG/200 ML BAG 200 MG IV (07:03)
--- NOTE | 2022-09-03 07:25 | PCM.HP.STD ---
HPI - General General Date of Admission: 09/03/22 HPI Narrative SEBASTIÁN REYES, is a 77 F who presents with left foot wound after multiple surgical interventions for attempted foot salvage. Her Achilles lengthening incision is now nearly healed, but when ambulating she has considerable pain at base of foot and she feels this is similar sensation that led to recurring wounds. No F/C/purulence. [facility] Medical History (Updated 09/03/22 @ 07:[address] Con Terry MD) Acquired equinus deformity of left foot Acute hyperkalemia Amput foot, unilat-complicated Anemia Anxiety Atherosclerotic heart disease of [place] coronary artery without angina pectoris Back pain Blackout Bladder disease Cardiology follow-up encounter Carpal tunnel syndrome Charcot foot due to diabetes mellitus Charcot's joint of left foot Chest pain Delayed wound healing Dietary restriction DVT (deep venous thrombosis) Equinus contracture of left ankle Essential hypertension Gastric reflux GERD (gastroesophageal reflux disease) GI bleed Gout High cholesterol History of blood clots History of Clostridium difficile infection History of CVA (cerebrovascular accident) History of echocardiogram History of edema History of heart attack History of IBS History of non-ST elevation myocardial infarction (NSTEMI) (08/2020) History of renal disease History of stress test Humerus fracture Hyperlipidemia Hypothyroidism Insulin dependent diabetes mellitus Iron deficiency anemia Left-sided extracranial carotid artery stenosis Migraines MRSA infection Non-pressure chronic ulcer of left ankle with necrosis of muscle Non-pressure chronic ulcer of other part of left foot with fat layer exposed Non-pressure chronic ulcer of other part of left foot with fat layer exposed 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 evidence of necrosis Non-smoker Obesity Open wound Opioid dependence Osteoporosis Other acute postprocedural pain PAD (peripheral artery disease) Peripheral arterial occlusive disease Post-menopausal Restless legs Shortness of breath on exertion Sleep apnea Stenosis of right subclavian artery Stroke/cerebrovascular accident Thyroid disease Type 2 diabetes mellitus with diabetic polyneuropathy Type 2 diabetes mellitus with diabetic polyneuropathy Type 2 diabetes mellitus with foot ulcer Ulcer of abdomen wall with fat layer exposed Ulcer of left foot with fat layer exposed Uses wheelchair Vitamin D deficiency Wears dentures Wears glasses Home Medications pravastatin 40 mg tablet 40 mg PO QHS CHOLESTEROL 03/10/17 [History Last Taken 12/07/20] allopurinol 100 mg tablet 100 mg PO DAILY GOUT 03/17/20 [History Last Taken 12/08/20] [id number] 24,000-76,000-120,000 unit capsule,delayed rel (Creon) 1 cap PO BID IBS 04/05/20 [History Last Taken 12/08/20] levothyroxine 75 mcg tablet 75 mcg PO QHS THYROID 08/17/20 [History Last Taken 12/07/20] metoclopramide HCl 10 mg tablet 10 mg PO Q8H PRN PRN Nausea 08/17/20 [History Last Taken 12/07/20] trazodone 100 mg tablet 100 mg PO 2200 SLEEP 08/17/20 [History Last Taken 12/07/20] morphine 10 mg/5 mL oral solution 0.25 ml PO DAILY PAIN 09/19/20 [History Last Taken 09/03/22] nitroglycerin 400 mcg/spray translingual 0.4 mg sublingual TID PRN PRN chest pain 09/19/20 [History Last Taken 1 Week Ago ~12/01/20] polyethylene glycol 3350 17 gram oral powder packet 17 gm PO BID constipation 09/19/20 [History Last Taken 12/08/20] sennosides 8.6 mg-docusate sodium 50 mg tablet 1 tablet PO QHS constipation 09/19/20 [History Last Taken 12/07/20] esomeprazole magnesium 20 mg capsule,delayed release 20 mg PO DAILY GERD 12/08/20 [History Last Taken 09/03/22] fexofenadine 180 mg tablet 180 mg PO DAILY ALLERGIES 12/08/20 [History Last Taken 12/08/20] carvedilol 25 mg tablet 25 mg PO BID BP #180 tabs 02/02/22 [Rx Last Taken 09/03/22] insulin aspart U-100 100 unit/mL (3 mL) subcutaneous pen (Novolog FlexPen U-100 Insulin aspart) 30 unit subcut BID DIABETES 06/12/22 [History Last Taken Unknown] insulin detemir U-100 100 unit/mL (3 mL) subcutaneous pen (Levemir FlexTouch U-100 Insulin) 25 unit subcut BID DIABETES 06/12/22 [History Last Taken Unknown] linaclotide 72 mcg capsule 72 mcg PO DAILY PRN STOOL 06/12/22 [History Last Taken Unknown] clopidogrel 75 mg tablet 75 mg PO DAILY CAD #90 tabs 08/03/22 [Rx Last Taken 08/31/22] amlodipine 5 mg tablet 5 mg PO DAILY HYPERTENSION 08/20/22 [History Last Taken 09/03/22] ammonium lactate 12 % topical cream 1 applic topical PRN PRN Skin Cleansing 08/20/22 [History Last Taken Unknown] apixaban 5 mg tablet (Eliquis) 5 mg PO BID BLOOD THINNER 08/20/22 [History Last Taken 08/31/22] arginine 7 gram-glutamine 7 gram-calcium HMB 1.5 gram oral powder pack (Blue) 1 ea PO BID SUPPLEMENT 08/20/22 [History Last Taken Unknown] calcium citrate 200 mg (950 mg) tablet 250 mg PO BID supplement 08/20/22 [History Last Taken Unknown] camphor-menthol 11 %-10 % topical cream ([place]) 1 applic topical PRN PRN Pain 08/20/22 [History Last Taken Unknown] divalproex 125 mg capsule,delayed release sprinkle 125 mg PO BID MOOD 08/20/22 [History Last Taken 09/03/22] isosorbide mononitrate 60 mg tablet,extended release 24 hr 60 mg PO TID HEART 08/20/22 [History Last Taken 09/03/22] menthol 0.44 %-zinc oxide 20.6 % topical ointment (Calmoseptine) 1 applic topical DAILY PRN Skin Cleansing 08/20/22 [History Last Taken Unknown] morphine concentrate 100 mg/5 mL (20 mg/mL) oral solution 5 mg PO Q4H PRN Pain 08/20/22 [History Last Taken Unknown] nystatin 100,000 unit/gram topical cream 1 applic topical DAILY SKIN 08/20/22 [History Last Taken Unknown] pantoprazole 20 mg tablet,delayed release 20 mg PO QHS GERD 08/20/22 [History Last Taken Unknown] pregabalin 25 mg capsule 25 mg PO DAILY NERVE PAIN 08/20/22 [History Last Taken 09/02/22] sitagliptin phosphate 25 mg tablet (Januvia) 25 mg PO DAILY DIABETES 08/20/22 [History Last Taken Unknown] sucralfate 1 gram tablet 1 g PO 4X/DAY DIARRHEA 08/20/22 [History Last Taken Unknown] tizanidine 4 mg tablet 4 mg PO 2200 PAIN 08/20/22 [History Last Taken Unknown] venlafaxine 100 mg tablet 100 mg PO BID DEPRESSION 08/20/22 [History Last Taken 09/03/22] Allergy/AdvReac Type Severity Reaction Status Date / Time doxycycline Allergy Severe all over Verified 08/20/22 14:08 body hives and itching atorvastatin calcium Allergy Unknown Verified 08/20/22 14:08 [From Lipitor] bupropion HCl Allergy Unknown Verified 08/20/22 14:08 [From Wellbutrin] mannitol [From Reclast] Allergy joint Verified 08/20/22 14:08 pain, unable to breathe, unable to walk propoxyphene napsylate Allergy Unknown Verified 08/20/22 14:08 [From Darvocet-N 100] Quinolones Allergy Unknown Verified 08/20/22 14:08 Tetanus Vaccines and Toxoid Allergy Chest Verified 08/20/22 14:08 [Tetanus Vaccines & Toxoid] tightness zoledronic acid Allergy joint Verified 08/20/22 14:08 [From Reclast] pain,unable to breathe, unaable to walk gemfibrozil AdvReac Intermediate Unknown Verified 08/20/22 14:08 amoxicillin AdvReac Mild Rash Verified 08/20/22 14:08 NSAIDS (Non-Steroidal AdvReac Other Verified 08/20/22 14:08 Anti-Inflamma Family History Mother , age 75 Cancer CVA (cerebral vascular accident) CAD (coronary artery disease) Father CAD (coronary artery disease) History of coronary artery bypass graft Sister CAD (coronary artery disease) Multiple sclerosis Other Anxiety Bleeding disorder Depression Diabetes Heart disease High cholesterol Hypertension Surgical History (Updated 08/20/22 @ 14:50 by Sindy Hernández) H/O coronary artery bypass surgery (09/09/14) History of Achilles tendon repair History of angioplasty of peripheral vessel (12/2014) History of appendectomy History of cholecystectomy History of [place] amputation of left foot History of coronary artery stent placement (09/22/20) History of excision of lesion History of foot surgery History of gastric bypass History of neck surgery History of ventral hernia repair Hx of amputation of foot Hx of ventral hernia repair Social History Smoking Status: Never smoker alcohol intake: never substance use type: does not use caffeine: Yes Type: coffee what type of physical activity do you participate in: none seatbelt use: sometimes do you feel safe at home: Yes additional social history: DOES NOT TAKE ASPIRIN DOES TAKE IBUPROFEN NEEDED ROS Constitutional Constitutional: Denies chills, fever(s), frequent falls, lethargy or weakness Eyes Eyes: Denies blind spots, change in vision or loss of vision ENT HEENT: Denies bleeding gums, hoarseness or sore throat Cardiovascular Cardiovascular: Denies abdominal pain, bluish discoloration of hand/feet, chest pain with activity, claudication, cold extremities, cyanosis, dyspnea on exertion, erythema on extremities, irregular heart rhythm, leg edema, leg ulcers, numbness in extremities or weakness in extremities Respiratory/Chest Respiratory/Chest: Denies cough, excessive phlegm production, shortness of breath at rest, shortness of breath with exertion or wheezing Gastrointestinal Gastrointestinal: Denies anorexia, change in stool character, constipation, diarrhea, melena or rectal bleeding Genitourinary Genitourinary: Denies dysuria or hematuria Musculoskeletal Musculoskeletal: Denies abnormal gait Integumentary Integumentary: Reports other Details: ; Denies erythema, non-healing lesions or wounds Neurologic Neurologic: Denies abnormal speech, focal weakness, headache(s), loss of vision, numbness, paresthesias or sensory deficit Hematologic/Lymphatic Hematologic/Lymphatic: Denies easy bleeding, easy bruising or lymphadenopathy Vital Signs Vital Signs Vital Signs: 09/03/22 07:07 09/03/22 07:12 Temperature 97.6 F L Temperature Source Temporal Pulse Rate 68 Respiratory Rate 16 Respiratory Pattern Normal Blood Pressure 123/50 H Blood Pressure Mean 74 Blood Pressure Source Monitor Blood Pressure Position Sitting Blood Pressure Location Right Arm Pulse Ox 96 Oxygen Delivery Method Room Air Weight Weight: 175 lb 14.862 oz Body Mass Index (BMI) 29.2 Physical Exam Const alert, oriented x3, no apparent distress and healthy appearing General Appearance: cooperative; Negative for combative or lethargic Orientation / Consciousness: awake Exam Limitations: no limitations HEENT Head and Scalp: normocephalic and atraumatic Eyes EOMs intact bilaterally General Eye: normal appearance of both eyes Neck full ROM General: trachea midline Resp normal respiratory effort and no use of accessory muscles Effort and Inspection: Negative for labored, stridor or audible wheezes Cardio regular rate and regular rhythm Back/Spine Cervical Spine: cervical ROM normal Extremity full ROM, normal capillary refill and no clubbing, cyanosis or edema Skin no rashes or lesions noted Neuro oriented x3, CN's II-XII intact bilaterally, no focal motor deficits and no sensory deficits noted Psych thought process normal, cooperative, affect normal, speech normal and activity/motor behavior normal Results Lab / Micro Data Result Diagrams: 08/23/22 12:38 08/23/22 12:38 Assessment & Plan Assessment/Plan (1) Non-pressure chronic ulcer of other part of left foot with fat layer exposed: PLAN: -some wound progress, but she expects point tenderness/pain will again turn into wound -wishes to proceed with BKA
--- NOTE | 2022-09-03 07:30 | AMP_PTH ---
PATIENT: SEBASTIÁN REYES LOC: MS3 U#:[id number] AGE/SX: 77/F ROOM: [facility] [place]03/[address]: Dr. Con Terry MD : 1945 BED: 1 DIS: 09/07/2022 SPEC #: [id number] RECD: 09/03/22 09:07 STATUS: FER ADHIKARIMonica #: [id number] HANSEL: 09/03/22 07:[address]: Con Terry DEPT: SURGICAL PATHOLOGY RECD BY: Lupe Antonio ENTERED: 09/03/22 13:32 SP TYPE: Amputation OTHR DR: Dr. Con Johnson MD Tissues: Leg, NOS Procedures: Decalcification bone/plaque Surgery Specimen Level V HEADER OPERATION: Amputation below knee PRE-OP DIAGNOSIS: Non-pressure chronic ulcer TISSUE SUBMITTED: Left lower leg MICROSCOPIC DIAGNOSIS Left lower leg, below knee amputation: Focal area of ulceration with associated acute inflammation, granulation tissue reaction and fibrosis. Bone underlying the ulcerated area with reactive changes, negative for acute osteomyelitis. Anterior tibial vessels and posterior tibial vessels with focal atherosclerotic changes and calcification. CANDIE:debbi 09/06/2022 MICROSCOPIC DESCRIPTION Slides are reviewed. GROSS DESCRIPTION Received labeled with the patient's name and designated left lower leg. The specimen consists of a below knee amputation of left lower extremity measuring from cutaneous resection margin to heel 24.0 cm and from heel to line of previous amputation 12.0 cm. The foot is not present. A 4.0 cm portion of fibula and 3.0 cm portion of tibia is projecting beyond the anterior resection margin. The cutaneous posterior resection margin is 11.0 cm below the anterior resection margin. A focal area of ulceration is noted at the bottom of the heel measuring 1.5 cm in greatest dimension. A focal area of ulceration is also noted on the posterior surface of the leg measuring 3.0 cm in greatest dimension. Anterior tibial vessels and posterior tibial vessels are dissected and cuts with a gritty sensation. Sales Project Administrator sections are submitted as follows: 1 - cutaneous and skeletal muscle resection margin, 2?& 3 - ulcerated area, 4??bone marrow at the resection margin, 5 - anterior tibial vessel, 6??posterior tibial vessel, 7 & 8 - bone underneath the ulcerated area on the heel. Cassettes 4-8 are submitted after decalcification. / CANDIE:debbi 09/03/2022 TC:2 CPT: 98270, 75211
[2022-09-03 07:51] LABS: Bedside Glucose 184 mg/dL (74-106)
--- NOTE | 2022-09-03 10:49 | PCM.OPRPT ---
Report of Operation Date of Procedure: 09/03/22 Pre-Operative Diagnosis: non healing left foot wound Post-Operative Diagnosis: same Surgery/Procedure Performed:: left below knee amputation Surgeon: Con Terry Type of Anesthesia: General Estimated Blood Loss (mL): 500 Description of Procedure: HPI: Patient is a 77-year-old female with multiple left lower extremity foot wounds resulted in forefoot amputation with multiple and repeat need for surgery and still with refractory wound on the plantar surface of the foot. She has no opportunity for improvement in her perfusion with near normal macro vasculature so she wishes to to proceed with a below-knee amputation. Description of procedure: Upon obtaining inform consent and verification of correct patient procedure and site the patient was taken to the operating room where she was placed under general anesthesia. She was then positioned prepped and draped in usual sterile fashion a timeout was performed. Skin was marked with posterior flap below-knee amputation configuration and skin incision made with 10 blade. Bovie electrocautery used to dissect down through subcutaneous tissue down to level the fascia and the fascia was incised. Muscle of the anterior and lateral compartments was divided with Bovie down to the anterior tibial artery which was then ligated with silk ties and divided and further dissection with the Bovie utilized to circumferentially free the fibula. Bovie was used to dissect soft tissue from the lateral and anterior aspect of the tibia, and on the medial aspect of the calf the soleus muscle was divided and blunt dissection then used to mobilize tissue from the posterior aspect of the tibia. Skin incision was then extended on the medial lateral aspects of the calf fashion in the skin of the posterior flap. A periosteal elevator was then utilized to further free soft tissue from the tibia and the tibia was divided with an anterior bevel using a reciprocating saw. We then used a periosteal elevator to mobilize tissue from the fibula and the fibula was divided with a bone cutter. An amputation knife was then used to fashion the posterior flap and upon removal of the specimen the tibioperoneal trunk artery and vein were identified and clamped. Muscle perforators were controlled with Bovie and [id number] Vicryl sutures the popliteal vein was ligated with silk ties and divided distally. The popliteal artery was similarly ligated with silk ties and divided distally the soleus muscle was then excised exposing the nerve which was ligated with silk tie, injected with Marcaine, and divided allowing the nerve to retract up into the muscle. The wound was then irrigated with saline and found to be with satisfactory hemostasis. The tibia was then smoothed with a rasp and the remainder of the posterior muscle trimmed to fashion the posterior flap. The flap was then secured to the anterior fascia with interrupted 2-0 Vicryl, followed by interrupted 2-0 nylon for the skin. At the conclusion dry sterile dressing and posterior splint were applied and the patient was awakened from anesthesia taken recovery room with anticipated admission to the [facility] unit.
[2022-09-03 10:51] LABS: Bedside Glucose 218 mg/dL (74-106)
[2022-09-03] MEDS: Insulin Lispro 100 UNIT/ML INSULN.PEN SC ×3 (12:24→21:08)
[2022-09-03] MEDS: 0.9% Normal Saline 1,000 ML 75 ML IV (12:24)
[2022-09-03] MEDS: Polyethylene Glycol 3350 17 GM PACKET PO ×2 (12:25→21:10)
[2022-09-03] MEDS: HYDROmorphone 0.5 MG/0.5 ML SYRINGE IV ×2 (12:26→19:54)
[2022-09-03] MEDS: Enoxaparin 40 MG/0.4 ML Syringe SC (12:26)
[2022-09-03 12:55] LABS: Bedside Glucose 209 mg/dL (74-106)
[2022-09-03] MEDS: morphine (oral solution) 10MG/0.5ML Syringe 5 MG PO (14:16)
[2022-09-03] MEDS: Divalproex Sodium 125 MG SPRINKLE PO ×2 (14:17→21:08)
[2022-09-03] MEDS: Acetaminophen 500 MG Tablet 1000 MG PO ×2 (14:19→21:12)
[2022-09-03] MEDS: Allopurinol 100 MG Tablet PO (14:19)
[2022-09-03] MEDS: Isosorbide Mononitrate 60 MG Tablet PO ×2 (14:20→21:10)
[2022-09-03] MEDS: Sucralfate 1 GM Tablet PO ×2 (16:23→21:07)
[2022-09-03] MEDS: Carvedilol 25 MG Tablet PO (16:23)
[2022-09-03] MEDS: Creon 24,000 unit DR Capsule 1 CAP PO (16:23)
[2022-09-03 16:55] LABS: Bedside Glucose 329 mg/dL (74-106)
[2022-09-03] MEDS: traZODone 100 MG Tablet PO (21:08)
[2022-09-03] MEDS: Pravastatin 40 MG Tablet PO (21:10)
[2022-09-03] MEDS: Calcium (Elemental) 500 MG Tablet 250 MG PO (21:10)
[2022-09-03] MEDS: Levothyroxine 75 MCG Tablet PO (21:11)
[2022-09-03] MEDS: Pantoprazole Sodium 20 MG Tablet PO (21:11)
[2022-09-03] MEDS: Senna/Docusate Sodium 1 Tablet PO (21:12)
[2022-09-03] MEDS: tiZANidine HCl 2 MG Tablet 4 MG PO (21:22)
[2022-09-03 21:55] LABS: Bedside Glucose 324 mg/dL (74-106)
[2022-09-04] VITALS (7 sets, daily range): BP systolic 131–170; BP diastolic 42–82; PULSE 63–71; RESP 14–18; TEMP 36.6–37.2; O2SAT 94–97
[2022-09-04] MEDS: 0.9% Normal Saline 1,000 ML 75 ML IV ×2 (00:27→13:14)
[2022-09-04] MEDS: Insulin Lispro 100 UNIT/ML INSULN.PEN SC ×2 (04:22→11:00)
[2022-09-04] MEDS: Isosorbide Mononitrate 60 MG Tablet PO ×3 (04:25→22:18)
[2022-09-04] MEDS: Acetaminophen 500 MG Tablet 1000 MG PO ×3 (04:26→22:18)
[2022-09-04] MEDS: morphine (oral solution) 10MG/0.5ML Syringe 5 MG PO ×2 (04:29→09:23)
[2022-09-04 04:56] LABS: Bedside Glucose 183 mg/dL (74-106)
[2022-09-04] MEDS: HYDROmorphone 0.5 MG/0.5 ML SYRINGE IV ×4 (06:37→22:42)
[2022-09-04] MEDS: Sucralfate 1 GM Tablet PO ×4 (06:39→22:19)
[2022-09-04 06:53] LABS: Absolute Lymphocyte Count 2.47 X10^3/uL (0.83-4.51); Absolute Neutrophil Count 4.2 X10^3/uL (2.0-7.7); Basophil# 0.02 X10^3/uL; Basophil% 0.3 % (0-1); Eosinophil# 0.04 X10^3/uL; Eosinophils% 0.5 % (0-5); Hematocrit 34.2 % (37-47); Hemoglobin 11.1 g/dL (12.0-15.0); Lymphocyte # 2.47 X10^3/ul (0.83-4.51); Lymphocyte % 33.3 % (19-41); Mean Corp Hgb Conc 32.5 g/dL (32-36); Mean Corpuscular Hgb 27.5 pg (27.0-32.0); Mean Corpuscular Volume 84.7 fL (81-99); Mean Platelet Vol. 9.8 fl (6.2-12.0); Monocyte# 0.63 X10^3/uL; Monocyte% 8.5 % (0-10); NRBC Flagged by Analyzer 0 % (0-5); Neutrophil # 4.24 X10^3/uL (2.7-7.7); Neutrophil % 57.1 % (47-70); Platelet Count 143 K/mm3 (150-450); RBC Distribution Width CV 15.6 % (11.6-14.6); RBC Distribution Width SD 47.3 fl (35.1-43.9); Red Blood Count 4.04 M/mm3 (4.2-5.4); White Blood Count 7.4 K/mm3 (4.4-11.0)
[2022-09-04 07:11] LABS: Bedside Glucose 148 mg/dL (74-106)
[2022-09-04] MEDS: Allopurinol 100 MG Tablet PO (09:15)
[2022-09-04] MEDS: Creon 24,000 unit DR Capsule 1 CAP PO ×2 (09:15→16:46)
[2022-09-04] MEDS: Carvedilol 25 MG Tablet PO ×2 (09:15→16:50)
[2022-09-04] MEDS: Enoxaparin 40 MG/0.4 ML Syringe SC (09:16)
[2022-09-04] MEDS: Divalproex Sodium 125 MG SPRINKLE PO ×2 (09:17→22:19)
[2022-09-04] MEDS: Loratadine 10 MG Tablet PO (09:17)
[2022-09-04] MEDS: amLODIPine 5 MG Tablet PO (09:18)
[2022-09-04] MEDS: Calcium (Elemental) 500 MG Tablet 250 MG PO ×2 (09:19→22:20)
[2022-09-04] MEDS: Clopidogrel Bisulfate 75 MG Tablet PO (09:21)
[2022-09-04] MEDS: Pantoprazole Sodium 20 MG Tablet PO ×2 (09:24→22:21)
[2022-09-04] MEDS: Polyethylene Glycol 3350 17 GM PACKET PO ×2 (09:25→22:18)
[2022-09-04] MEDS: LINAGLIPTIN 5 MG TABLET PO (09:26)
--- NOTE | 2022-09-04 10:25 | CASEMGMT ---
Addendum entered by Breonna Guerrero 09/04/22 14:03: Referral sent to [facility] via [facility]. SW provided contact number and encouraged [facility] admissions to reach out with questions or requests for anything needed to make determination on acceptance. Addendum entered by Breonna Guerrero 09/04/22 13:48: Therapy evaluations in for pt. SW in to pt room. SW introduced self and role at the hospital. Pt agreeable to discussing discharge planning. A list of SNF providers including quality and resource use data consistent with the patient?s preferred geographic region, medical needs, and insurance network were [facility]. Pt stated preference is [facility]. SW checked with Fouzia at TCU. Pt is on the TCU do not accept list. SW notified pt that TCU unable to accept. Pt reviewed list, stated only other place pt would go to is [facility]. Pt stated I'll just go home if they can't take me. BARRY shared with pt intent to send referral to [facility] and provide updates as they come in. Pt voiced understanding. MARTIN Cuevas Original Note: Social Work MD Terry rounded with BARRY and informed pt will need SNF following left BKA. BARRY will meet with pt to continue discharge planning. MARTIN Cuevas
[2022-09-04 11:25] LABS: Bedside Glucose 341 mg/dL (74-106)
--- NOTE | 2022-09-04 11:27 | CASEMGMT ---
GRICELDA REED Assessment: Face to Face with pt for initial transition planning/care coordination assessment. GRICELDA REED introduced self and role at [facility], pt voices understanding and consents to assessment. Pt is A/O x4 and answers all questions appropriately at this time. Pt sitting up in chair in no distress with at bedside. Care providers, pharmacy, and demographics verified/updated. Admitting Dx: left below knee amp PCP:Alex Specialists: Mara, vasc; SULY, cardio; Colleen, pod; Basali, pain mgmt Preferred Pharmacy: [facility] Retail Insurance: [facility], Z[employer] Folder Benefit Prescription Benefit: yes LNOK: Logan Seay, ; Madison Barrera, dil Living Arrangements: Pt lives with in a single story home with a ramp to enter. Pt reports her assists with ADL's and IADL's. Pt denies concerns at home. Transportation: Pt provides transportation for pt. DME/HHC/SNF: Pt has a power scooter, standard w/c, electric w/c, knee scooter, FWW, shower chair and grab bars in the bathroom. Pt has had [facility]HC in the past and has been to [facility]. Pt states she is aware that it is recommended that she go to SNF at ia. Pt would like to go to TCU. She is aware that the SW will be in to speak with her regarding options. Pt states no further concerns/needs. CM to follow. Advised pt to ask CM if any further question/concerns/needs arise, voices understanding. Pt Goal: SNF Plan: TBD, pending therapy evals.
[2022-09-04] MEDS: Pregabalin 75 MG Capsule PO (13:10)
[2022-09-04] MEDS: Juven (unflavored) Packet 1 PACKET PO (16:46)
--- NOTE | 2022-09-04 16:49 | PCM.PN.SRG ---
Subjective Subjective Patient is POD#1 from L BKA. She is doing well. She reports pain around the surgical site as well as some phantom pain. She has been tolerating advances in her diet without issue. She is voiding without issue. She has not been up to chair yet today. She has been on Lyrica prior to surgery for pain management, she used to be on about 75mg at night and 50mg in the morning but had recently backed down to 25mg at night because it made her quite drowsy. Objective Data Objective Data A&Ox3, NAD RRR Nonlabored respirations, able to speak in complete sentences Barbara DYKES with surgical dressing C/D/I, did not remove to examine incision today. No excessive tenderness to gentle palpation of the amputation stump. Vital Signs: Vital Signs Temp Pulse Resp BP Pulse Ox O2 Del Method O2 Flow Rate 97.9 F 68 16 139/42 H 94 Room Air 2 09/04/22 13:39 09/04/22 13:39 09/04/22 13:39 09/04/22 13:39 09/04/22 13:39 09/04/22 14:00 09/03/22 15:48 Oxygen Flow Rate (L/min) 2 Oxygen Delivery Method Room Air Weight: 175 lb 14.862 oz Body Mass Index (BMI) 29.2 Intake & Output: Intake and Output for Last 24 Hours 09/02/22 09/03/22 09/04/22 23:59 23:59 23:59 Intake Total 2400 / 2400 1962.50 / 1962.50 Output Total 400 / 1100 3400 / 3400 Balance 2000 / 1300 -1437.50 / -1437.50 Lab / Micro Data Result Diagrams: 09/04/22 06:25 08/23/22 12:38 Labs: Laboratory Results - last 24 hr 09/03/22 16:22: POC Glucose 329 H 09/03/22 21:06: POC Glucose 324 H 09/04/22 04:21: POC Glucose 183 H 09/04/22 06:25: WBC 7.4, RBC 4.04 L, Hgb 11.1 L, Hct 34.2 L, MCV 84.7, MCH 27.5, MCHC 32.5, RDW Std Deviation 47.3 H, RDW Coeff of Marco 15.6 H, Plt Count 143 L, MPV 9.8, Immature Gran % (Auto) 0.300, Neut % (Auto) 57.1, Lymph % (Auto) 33.3, Upson % (Auto) 8.5, Eos % (Auto) 0.5, Baso % (Auto) 0.3, Absolute Neuts (auto) 4.2, Absolute Lymphs (auto) 2.47, Nucleated RBC % 0 09/04/22 06:49: POC Glucose 148 H 09/04/22 10:55: POC Glucose 341 H Assessment & Plan Assessment/Plan (1) PAD (peripheral artery disease): (2) Non-pressure chronic ulcer of other part of left foot with fat layer exposed: (3) Status post below-knee amputation of left lower extremity: PLAN: Plan s/p L BKA, POD#1 Increase Lyrica to 75mg at night to better as tolerated to better address her phantom pain. She is tolerating diet advances. Okay for regular diet. Restarted her home insulin dosing. Will take down surgical dressing tomorrow to assess incision. Sent order to [facility] for rigid removable protective device with extension, they will fit patient for this tomorrow afternoon. PT/OT will work with her while she is here, anticipate will need to go to rehab facility for continued therapy after discharge.
[2022-09-04] MEDS: Insulin Lispro 100 UNIT/ML INSULN.PEN 30 UNIT SC (16:50)
[2022-09-04 16:56] LABS: Bedside Glucose 412 mg/dL (74-106)
[2022-09-04] MEDS: Senna/Docusate Sodium 1 Tablet PO (22:19)
[2022-09-04] MEDS: traZODone 100 MG Tablet PO (22:20)
[2022-09-04] MEDS: Pravastatin 40 MG Tablet PO (22:20)
[2022-09-04] MEDS: Levothyroxine 75 MCG Tablet PO (22:21)
[2022-09-04] MEDS: tiZANidine HCl 2 MG Tablet 4 MG PO (22:42)
[2022-09-04] MEDS: Menthol/Lanolin/Calamine/Znox 113 GM Tube 1 APPLIC TOPICAL (23:50)
[2022-09-05 00:21] LABS: Bedside Glucose 162 mg/dL (74-106)
[2022-09-05 00:21] LABS: Bedside Glucose 65 mg/dL (74-106)
[2022-09-05 03:44] VITALS: BP 155/61; PULSE 63; RESP 16; TEMP 36.6; O2SAT 96
[2022-09-05] MEDS: HYDROmorphone 0.5 MG/0.5 ML SYRINGE IV ×4 (03:51→20:28)
[2022-09-05] MEDS: 0.9% Saline Lock 10 ML Syringe IV ×5 (03:52→23:26)
[2022-09-05] MEDS: Sucralfate 1 GM Tablet PO ×4 (05:27→22:44)
[2022-09-05] MEDS: Acetaminophen 500 MG Tablet 1000 MG PO ×3 (05:27→22:45)
[2022-09-05] MEDS: Isosorbide Mononitrate 60 MG Tablet PO ×3 (05:27→22:44)
[2022-09-05 05:46] LABS: Bedside Glucose 144 mg/dL (74-106)
[2022-09-05] MEDS: morphine (oral solution) 10MG/0.5ML Syringe 5 MG PO ×2 (06:56→11:10)
[2022-09-05 08:11] LABS: Bedside Glucose 135 mg/dL (74-106)
[2022-09-05 08:24] VITALS: BP 147/79; PULSE 65; RESP 16; TEMP 36.8; O2SAT 96
[2022-09-05] MEDS: Carvedilol 25 MG Tablet PO ×2 (08:28→17:48)
[2022-09-05] MEDS: Creon 24,000 unit DR Capsule 1 CAP PO ×2 (08:28→17:48)
[2022-09-05] MEDS: Allopurinol 100 MG Tablet PO (08:29)
[2022-09-05] MEDS: Juven (unflavored) Packet 1 PACKET PO ×2 (08:31→17:48)
[2022-09-05] MEDS: Insulin Lispro 100 UNIT/ML INSULN.PEN 30 UNIT SC (08:42)
[2022-09-05] MEDS: Insulin Glargine-YFGN 100 UNIT/ML Pen 25 UNIT SC (08:44)
[2022-09-05] MEDS: Menthol/Lanolin/Calamine/Znox 113 GM Tube 1 APPLIC TOPICAL ×2 (10:59→22:43)
[2022-09-05] MEDS: Loratadine 10 MG Tablet PO (11:00)
[2022-09-05] MEDS: LINAGLIPTIN 5 MG TABLET PO (11:00)
[2022-09-05] MEDS: Clopidogrel Bisulfate 75 MG Tablet PO (11:00)
[2022-09-05] MEDS: Calcium (Elemental) 500 MG Tablet 250 MG PO ×2 (11:01→22:49)
[2022-09-05] MEDS: amLODIPine 5 MG Tablet PO (11:01)
[2022-09-05] MEDS: Polyethylene Glycol 3350 17 GM PACKET PO ×2 (11:02→22:50)
[2022-09-05] MEDS: Pantoprazole Sodium 20 MG Tablet PO ×2 (11:02→22:47)
[2022-09-05] MEDS: Divalproex Sodium 125 MG SPRINKLE PO ×2 (11:02→22:47)
[2022-09-05] MEDS: Enoxaparin 40 MG/0.4 ML Syringe SC (11:09)
[2022-09-05] MEDS: Pregabalin 75 MG Capsule PO (11:09)
[2022-09-05 11:40] LABS: Bedside Glucose 293 mg/dL (74-106)
--- NOTE | 2022-09-05 11:59 | CASEMGMT ---
Addendum entered by Breonna Guerrero 09/05/22 14:58: SW called [facility] once again. Spoke to Jessica. Jessica stated pt can be accepted but not able to admit until tomorrow (due to 3 midnight rule). SW updated pt and MD Terry. Addendum entered by Breonna Guerrero 09/05/22 14:39: SW has still not heard back from [facility]. SW in to pt room to discuss alternative choices. Pt refusing, stated [facility] is only option to consider at this point. SW attempted to call Rashida at [facility] once again, was sent to . Pt stated possibly open to providing another choice tomorrow but would like to wait for [facility] for a little while longer before doing this. Original Note: Social Work SW called [facility] to speak with admissions. Spoke to Rashida. Rashida shared was off yesterday and someone else was covering. Rashida asked SW to resend the referral via [facility]. SW unsure why referral needs to be resent. Rashida stated may not be able to se it. SW resent referral and will await determination once again. PLAN: [facility], pending acceptance and precert MARTIN Cuevas
[2022-09-05] MEDS: Insulin Lispro 100 UNIT/ML INSULN.PEN SC ×3 (12:43→22:57)
[2022-09-05 14:16] VITALS: BP 140/101; PULSE 69; RESP 18; TEMP 36.9; O2SAT 98
[2022-09-05 17:15] LABS: Bedside Glucose 225 mg/dL (74-106)
[2022-09-05 20:21] VITALS: BP 146/82; PULSE 69; RESP 16; TEMP 37.2; O2SAT 96
[2022-09-05] MEDS: Levothyroxine 75 MCG Tablet PO (22:45)
[2022-09-05] MEDS: LINACLOTIDE 72 MCG CAPSULE PO (22:46)
[2022-09-05] MEDS: Senna/Docusate Sodium 1 Tablet PO (22:46)
[2022-09-05] MEDS: traZODone 100 MG Tablet PO (22:47)
[2022-09-05] MEDS: Pravastatin 40 MG Tablet PO (22:47)
[2022-09-05] MEDS: Insulin Glargine-YFGN 100 UNIT/ML Pen 15 UNIT SC (22:58)
[2022-09-05] MEDS: tiZANidine HCl 2 MG Tablet 4 MG PO (23:03)
[2022-09-06 02:58] VITALS: BP 127/53; PULSE 67; RESP 16; TEMP 36.7; O2SAT 98
[2022-09-06] MEDS: Insulin Lispro 100 UNIT/ML INSULN.PEN SC ×5 (03:04→21:57)
[2022-09-06] MEDS: 0.9% Saline Lock 10 ML Syringe IV ×2 (03:48→10:49)
[2022-09-06] MEDS: HYDROmorphone 0.5 MG/0.5 ML SYRINGE IV ×2 (03:48→10:49)
[2022-09-06] MEDS: Isosorbide Mononitrate 60 MG Tablet PO ×3 (06:04→21:47)
[2022-09-06] MEDS: Sucralfate 1 GM Tablet PO ×4 (06:05→21:47)
[2022-09-06] MEDS: Acetaminophen 500 MG Tablet 1000 MG PO ×3 (06:05→21:38)
[2022-09-06 07:10] LABS: Bedside Glucose 186 mg/dL (74-106)
[2022-09-06 08:01] LABS: Bedside Glucose 226 mg/dL (74-106)
[2022-09-06 08:36] VITALS: BP 160/59; PULSE 60; RESP 16; TEMP 36.7; O2SAT 98
[2022-09-06] MEDS: amLODIPine 5 MG Tablet PO (08:48)
[2022-09-06] MEDS: Allopurinol 100 MG Tablet PO (08:48)
[2022-09-06] MEDS: Carvedilol 25 MG Tablet PO ×2 (08:48→17:34)
[2022-09-06] MEDS: Creon 24,000 unit DR Capsule 1 CAP PO ×2 (08:48→17:30)
[2022-09-06] MEDS: Insulin Glargine-YFGN 100 UNIT/ML Pen 15 UNIT SC ×2 (08:49→21:56)
[2022-09-06 09:05] LABS: Bedside Glucose 166 mg/dL (74-106)
[2022-09-06] MEDS: Menthol/Lanolin/Calamine/Znox 113 GM Tube 1 APPLIC TOPICAL ×2 (10:15→21:40)
[2022-09-06] MEDS: Calcium (Elemental) 500 MG Tablet 250 MG PO ×2 (10:16→21:47)
[2022-09-06] MEDS: Juven (unflavored) Packet 1 PACKET PO ×2 (10:16→17:30)
[2022-09-06] MEDS: LINAGLIPTIN 5 MG TABLET PO (10:16)
[2022-09-06] MEDS: Clopidogrel Bisulfate 75 MG Tablet PO (10:16)
[2022-09-06] MEDS: Divalproex Sodium 125 MG SPRINKLE PO ×2 (10:17→21:49)
[2022-09-06] MEDS: Loratadine 10 MG Tablet PO (10:17)
[2022-09-06] MEDS: Enoxaparin 40 MG/0.4 ML Syringe SC (10:17)
[2022-09-06] MEDS: Pantoprazole Sodium 20 MG Tablet PO ×2 (10:18→21:47)
[2022-09-06] MEDS: Polyethylene Glycol 3350 17 GM PACKET PO (10:25)
[2022-09-06] MEDS: Pregabalin 75 MG Capsule PO (10:25)
[2022-09-06 12:55] LABS: Bedside Glucose 318 mg/dL (74-106)
[2022-09-06 12:55] LABS: Bedside Glucose 334 mg/dL (74-106)
[2022-09-06 13:05] LABS: Bedside Glucose 306 mg/dL (74-106)
[2022-09-06 14:21] VITALS: BP 154/56; PULSE 65; RESP 18; TEMP 36.9; O2SAT 97
--- NOTE | 2022-09-06 15:41 | CASEMGMT ---
Social Work Per physician, pt is not ready for discharge today. Phone call to [facility] and updated that discharge may be tomorrow. SW met with pt and updated that [facility] will have a bed for her when she is medically ready. Pt agreeable. Plan: [facility], when medically ready MARTIN Oropeza
--- NOTE | 2022-09-06 15:57 | PCM.PN.SRG ---
Subjective Subjective Doing well, pain adequately controlled. Still receiving IV dilaudid, has not taken any of PRN PO meds. Objective Data Objective Data A&O x 3, NAD RRR Resp non labored Inc C/D/I, skin edges viable Vital Signs: Vital Signs Temp Pulse Resp BP Pulse Ox O2 Del Method O2 Flow Rate 98.4 F 65 18 154/56 H 97 Room Air 2 09/06/22 14:21 09/06/22 14:21 09/06/22 14:21 09/06/22 14:21 09/06/22 14:21 09/06/22 14:21 09/03/22 15:48 Oxygen Flow Rate (L/min) 2 Oxygen Delivery Method Room Air Weight: 175 lb 14.862 oz Body Mass Index (BMI) 29.2 Intake & Output: Intake and Output for Last 24 Hours 09/04/22 09/05/22 09/06/22 23:59 23:59 23:59 Intake Total 2362.50 / 2362.50 2839.25 / 2839.25 700 / 700 Output Total 4350 / 4350 3750 / 3750 2400 / 2400 Balance -1987.50 / -1987.50 -910.75 / -910.75 -1700 / -1700 Lab / Micro Data Result Diagrams: 09/04/22 06:25 08/23/22 12:38 Labs: Laboratory Results - last 24 hr 09/05/22 16:29: POC Glucose 225 H 09/05/22 22:39: POC Glucose 318 H 09/05/22 22:40: POC Glucose 334 H 09/06/22 03:02: POC Glucose 226 H 09/06/22 06:10: POC Glucose 186 H 09/06/22 08:43: POC Glucose 166 H 09/06/22 12:36: POC Glucose 306 H Micro: Microbiology 09/06/22 11:00 Nasal Secretion SARS-CoV-2 Antigen (Rapid) - Final Assessment & Plan Assessment/Plan (1) Status post below-knee amputation of left lower extremity: PLAN: -cont stump protector -dc dilaudid, cont scheduled PO morphine and will take PO PRN morphine -plan DC tomorrow to SNF
[2022-09-06 17:15] LABS: Bedside Glucose 267 mg/dL (74-106)
[2022-09-06] MEDS: morphine (oral solution) 10MG/0.5ML Syringe 5 MG PO ×2 (17:47→22:19)
[2022-09-06 21:43] VITALS: BP 175/63; PULSE 67; RESP 16; TEMP 37.1; O2SAT 98
[2022-09-06] MEDS: Pravastatin 40 MG Tablet PO (21:47)
[2022-09-06] MEDS: Levothyroxine 75 MCG Tablet PO (21:47)
[2022-09-06] MEDS: Senna/Docusate Sodium 1 Tablet PO (21:48)
[2022-09-06] MEDS: traZODone 100 MG Tablet PO (21:49)
[2022-09-06] MEDS: tiZANidine HCl 2 MG Tablet 4 MG PO (22:19)
[2022-09-06 23:50] LABS: Bedside Glucose 200 mg/dL (74-106)
[2022-09-07 02:36] VITALS: BP 160/84; PULSE 60; RESP 16; TEMP 37.1; O2SAT 96
[2022-09-07] MEDS: Insulin Lispro 100 UNIT/ML INSULN.PEN SC (02:47)
[2022-09-07 03:40] LABS: Bedside Glucose 193 mg/dL (74-106)
[2022-09-07] MEDS: Acetaminophen 500 MG Tablet 1000 MG PO (06:39)
[2022-09-07] MEDS: Isosorbide Mononitrate 60 MG Tablet PO (06:39)
[2022-09-07] MEDS: Sucralfate 1 GM Tablet PO (06:39)
[2022-09-07 07:20] LABS: Bedside Glucose 142 mg/dL (74-106)
--- NOTE | 2022-09-07 07:47 | PCM.PN.SRG ---
Subjective Subjective Patient is doing well today. Her pain remains adequately controlled now with her home regimen. She is tolerating full diet and voiding without difficulty. She has the rigid removable protective device in place. She denies N/V, F/C, CP, SOB, palpitations. Objective Data Objective Data A&O x 3, NAD RRR Respirations non labored, able to speak in complete sentences Inc C/D/I, skin edges viable, very minimal oozing. Vital Signs: Vital Signs Temp Pulse Resp BP Pulse Ox O2 Del Method O2 Flow Rate 98.8 F 60 16 160/84 H 96 Room Air 2 09/07/22 02:36 09/07/22 02:36 09/07/22 02:36 09/07/22 02:36 09/07/22 02:36 09/07/22 02:36 09/03/22 15:48 Oxygen Flow Rate (L/min) 2 Oxygen Delivery Method Room Air Weight: 175 lb 14.862 oz Body Mass Index (BMI) 29.2 Intake & Output: Intake and Output for Last 24 Hours 09/05/22 09/06/22 09/07/22 23:59 23:59 23:59 Intake Total 2839.25 / 2839.25 1150 / 1350 400 / 400 Output Total 3750 / 3750 2850 / 3950 2700 / 2700 Balance -910.75 / -910.75 -1700 / -2600 -2300 / -2300 Lab / Micro Data Result Diagrams: 09/04/22 06:25 08/23/22 12:38 Labs: Laboratory Results - last 24 hr 09/05/22 22:39: POC Glucose 318 H 09/05/22 22:40: POC Glucose 334 H 09/06/22 03:02: POC Glucose 226 H 09/06/22 08:43: POC Glucose 166 H 09/06/22 12:36: POC Glucose 306 H 09/06/22 16:56: POC Glucose 267 H 09/06/22 21:56: POC Glucose 200 H 09/07/22 02:45: POC Glucose 193 H 09/07/22 06:37: POC Glucose 142 H Micro: Microbiology 09/06/22 11:00 Nasal Secretion SARS-CoV-2 Antigen (Rapid) - Final Assessment & Plan Assessment/Plan (1) Status post below-knee amputation of left lower extremity: PLAN: Patient is recovering well, amputation site with satisfactory appearance. Continue to wear the stump protector. Plan to d/c to SNF today.
--- NOTE | 2022-09-07 07:52 | PCM.TXEXTCAR ---
Diet Diet Order/Speech Therapy: 09/04/22 15:18 Diet: Cardiac: Calorie-Controlled Food consistency:: Regular Liquid Consistency:: Regular/Thin Dietary Modifications:: Consistent Carbohydrate Is pt able to select menu?: No How many daily calories?: 1600 calorie Wound(s) LEFT LEG: Wound Type: Surgical Incision Dressing Change: Dry Sterile Dressing (as needed for oozing/drainage, otherwise no dressing necessary, cover only with sleeve and stump protector) Therapies Weight Bearing: Weight bearing as tolerated Extremity Affected:: Left Lower Physical Therapy: Eval and Treat Occupational Therapy: Eval and Treat Problem/Diagnosis (1) Status post below-knee amputation of left lower extremity: Status: Acute Code(s): Z89.512 - Acquired absence of left leg below knee Plan: Patient is s/p L BKA performed on 09/03/22. Incision site is closed with sutures, first half of which will be removed in 3 weeks at next office visit. No need to apply dressing unless oozing is noted, may just wear the cotton sleeve and stump protector. The stump protector/rigid removable device with extension should be in place during all transfers and ambulation. May be removed as needed for showers and therapy. Please ensure not to secure the velcro straps directly over the knee cap. Keep incision site clean and dry. Contact the office with any concerns for infection, dehiscence, or bleeding. Patient's pain is controlled on her current home regimen of PO morphine, will continue these orders for discharge, attending physician at SNF can assume these orders and adjust further as needed. Will also continue with 75mg Lyrica to address her phantom pains. Okay to continue Eliquis at this point. Patient will return for post-op office visit in 3 weeks, our office will call to schedule with SNF. Allergies/Procedures Done in Hospital Allergies doxycycline Allergy (Severe, Verified 08/20/22 14:08) all over body hives and itching atorvastatin calcium [From Lipitor] Allergy (Verified 08/20/22 14:08) Unknown bupropion HCl [From Wellbutrin] Allergy (Verified 08/20/22 14:08) Unknown mannitol [From Reclast] Allergy (Verified 08/20/22 14:08) joint pain, unable to breathe, unable to walk propoxyphene napsylate [From Darvocet-N 100] Allergy (Verified 08/20/22 14:08) Unknown Quinolones Allergy (Verified 08/20/22 14:08) Unknown Tetanus Vaccines and Toxoid [Tetanus Vaccines & Toxoid] Allergy (Verified 08/20/22 14:08) Chest tightness zoledronic acid [From Reclast] Allergy (Verified 08/20/22 14:08) joint pain,unable to breathe, unaable to walk JOINT PAIN,UNABLE TO BREATHE,UNABLE TO WALK gemfibrozil Adverse Reaction (Intermediate, Verified 08/20/22 14:08) Unknown amoxicillin Adverse Reaction (Mild, Verified 08/20/22 14:08) Rash NSAIDS (Non-Steroidal Anti-Inflamma Adverse Reaction (Verified 08/20/22 14:08) Other Procedures: - (L BKA) Type of Care/Length of Stay Estimated LOS: More Than 30 Days Type of Care Needed: Acute Rehab Rehab Potential: Good Prognosis: Good Additional Orders/Day of Discharge Day of Discharge: 09/07/22 Dietary and Speech Recommendations Dietitian Recommendations/Changes: Will change diet to 1600 calorie/consistent carbohydrate; cardiac. Will add Blue BID for wound healing support. Pt will not take glucerna shake. Follow Up Care Please follow up with your Primary Care Physician in: 1-2 weeks Please Follow Up With: Con Terry MD When: 3 weeks Discharge Plan Admission Admit Date/Time: 09/03/22 06:00 Primary Reason for Your Visit: L below knee amputation Attending Provider: Con Terry Primary Care Provider: Con Johnson Discharge Orders/Prescriptions Prescriptions: New pregabalin 75 mg Capsule 75 mg PO DAILY 14 Days Qty: 14 0RF Continued Creon 24,000-76,000 -120,000 unit capsule,delayed release(DR/EC) 1 cap PO BID Rx Instructions: administer with meals and/or snacks Levemir FlexTouch U-100 Insuln 100 unit/mL (3 mL) insulin pen 25 unit subcut BID pravastatin 40 MG tablet 40 mg PO QHS Label Comments: CHOLESTEROL allopurinol 100 MG tablet 100 mg PO DAILY levothyroxine 75 MCG tablet 75 mcg PO QHS Label Comments: 1 (ONE) TABLET BEDTIME trazodone 100 MG tablet 100 mg PO 2200 metoclopramide HCl 10 MG tablet 10 mg PO Q8H PRN PRN (Reason: Nausea) Label Comments: TAKE 1 (ONE) TABLET EVERY 8 HOURS NEEDED FOR NAUSE AND/OR CONSTIPATION linaclotide 72 mcg capsule 72 mcg PO DAILY PRN (Reason: STOOL) nitroglycerin 0.4 MG bottle 0.4 mg SL TID PRN PRN (Reason: chest pain) polyethylene glycol 3350 17 GM packet 17 gm PO BID Label Comments: pt states takes only benefiber -or- miralex everyday as needed for constipation. sennosides-docusate sodium 1 TABLET tablet 1 tablet PO QHS esomeprazole magnesium 20 mg capsule,delayed release(DR/EC) 20 mg PO DAILY Label Comments: TAKE 1 CAPSULE BY MOUTH EVERY DAY fexofenadine 180 mg Tablet 180 mg PO DAILY sucralfate 1 gram Tablet 1 g PO 4X/DAY pantoprazole 20 mg Tablet,Delayed Release (Dr/Ec) 20 mg PO QHS venlafaxine 100 mg Tablet 100 mg PO BID nystatin 100,000 unit/gram Cream 1 applic TOPICAL DAILY ammonium lactate 12 % Cream 1 applic TOPICAL PRN PRN (Reason: Skin Cleansing) divalproex 125 mg Capsule, Delayed Rel Sprinkle 125 mg PO BID Januvia 25 mg Tablet 25 mg PO DAILY [place] 11-10 % Cream 1 applic TOPICAL PRN PRN (Reason: Pain) menthol-zinc oxide [Calmoseptine] 0.44-20.6 % Ointment 1 applic TOPICAL DAILY PRN (Reason: Skin Cleansing) Blue 7-7-1.5 gram Powder In Packet 1 ea PO BID tizanidine 4 MG tablet 4 mg PO 2200 amlodipine 5 mg tablet 5 mg PO DAILY isosorbide mononitrate 60 mg tablet extended release 24 hr 60 mg PO TID calcium citrate 200 MG tablet 250 mg PO BID Rx Instructions: Hold it wile taking antibiotic Eliquis 5 mg tablet 5 mg PO BID Rx Instructions: 10 mg twice a day for the first week. Then 5 mg twice a day. carvedilol 25 mg tablet 25 mg PO BID Qty: 180 3RF Rx Instructions: TAKE 1 TABLET BY MOUTH TWICE A DAY clopidogrel 75 mg tablet 75 mg PO DAILY Qty: 90 3RF Label Comments: ask about stopping Changed morphine concentrate 100 mg/5 mL (20 mg/mL) Solution 5 mg PO Q6H 5 Days Qty: 5 0RF morphine 10 MG/5 ML solution 0.5 mg PO DAILY 5 Days Qty: 1.25 0RF insulin aspart U-100 [Novolog FlexPen U-100 Insulin] 100 unit/mL (3 mL) insulin pen 9 unit subcut BID 30 Days Qty: 0 0RF Discontinued pregabalin 25 mg Capsule 25 mg PO DAILY Referrals / Follow Up: Con Johnson MD [Primary Care Provider] - Disposition Disposition (needs filled in before D/C Order can be placed): [facility]
[2022-09-07] MEDS: Divalproex Sodium 125 MG SPRINKLE PO (08:48)
[2022-09-07] MEDS: APIXABAN 5 MG TABLET PO (08:48)
[2022-09-07] MEDS: Creon 24,000 unit DR Capsule 1 CAP PO (08:49)
[2022-09-07] MEDS: Enoxaparin 40 MG/0.4 ML Syringe SC (08:49)
[2022-09-07] MEDS: Insulin Glargine-YFGN 100 UNIT/ML Pen 15 UNIT SC (08:50)
[2022-09-07] MEDS: Allopurinol 100 MG Tablet PO (08:50)
[2022-09-07] MEDS: Loratadine 10 MG Tablet PO (08:50)
[2022-09-07] MEDS: Polyethylene Glycol 3350 17 GM PACKET PO (08:50)
[2022-09-07] MEDS: Menthol/Lanolin/Calamine/Znox 113 GM Tube 1 APPLIC TOPICAL (08:51)
[2022-09-07] MEDS: Pantoprazole Sodium 20 MG Tablet PO (08:51)
[2022-09-07] MEDS: Clopidogrel Bisulfate 75 MG Tablet PO (08:51)
[2022-09-07] MEDS: Calcium (Elemental) 500 MG Tablet 250 MG PO (08:51)
[2022-09-07] MEDS: Carvedilol 25 MG Tablet PO (08:51)
[2022-09-07] MEDS: LINAGLIPTIN 5 MG TABLET PO (08:52)
[2022-09-07] MEDS: morphine (oral solution) 10MG/0.5ML Syringe 5 MG PO ×2 (08:58→12:10)
[2022-09-07] MEDS: Pregabalin 75 MG Capsule PO (08:58)
--- NOTE | 2022-09-07 09:17 | PCM.DC.SUM ---
Providers Date of Admission: 09/03/22 Date of Discharge: 09/07/22 Primary Care Physician: Dr. Con Johnson MD Reason For Visit: LEFT BELOW KNEE AMP Diagnosis Discharge Diagnosis (1) Status post below-knee amputation of left lower extremity: Status: Acute Code(s): Z89.512 - Acquired absence of left leg below knee Medications at Discharge Home Medications pravastatin 40 mg tablet 40 mg PO QHS CHOLESTEROL 03/10/17 allopurinol 100 mg tablet 100 mg PO DAILY GOUT 03/17/20 [id number] 24,000-76,000-120,000 unit capsule,delayed rel (Creon) 1 cap PO BID IBS 04/05/20 levothyroxine 75 mcg tablet 75 mcg PO QHS THYROID 08/17/20 metoclopramide HCl 10 mg tablet 10 mg PO Q8H PRN PRN Nausea 08/17/20 trazodone 100 mg tablet 100 mg PO 2200 SLEEP 08/17/20 nitroglycerin 400 mcg/spray translingual 0.4 mg sublingual TID PRN PRN chest pain 09/19/20 polyethylene glycol 3350 17 gram oral powder packet 17 gm PO BID constipation 09/19/20 sennosides 8.6 mg-docusate sodium 50 mg tablet 1 tablet PO QHS constipation 09/19/20 esomeprazole magnesium 20 mg capsule,delayed release 20 mg PO DAILY GERD 12/08/20 fexofenadine 180 mg tablet 180 mg PO DAILY ALLERGIES 12/08/20 carvedilol 25 mg tablet 25 mg PO BID BP #180 tabs 02/02/22 insulin detemir U-100 100 unit/mL (3 mL) subcutaneous pen (Levemir FlexTouch U-100 Insulin) 25 unit subcut BID DIABETES 06/12/22 linaclotide 72 mcg capsule 72 mcg PO DAILY PRN STOOL 06/12/22 clopidogrel 75 mg tablet 75 mg PO DAILY CAD #90 tabs 08/03/22 amlodipine 5 mg tablet 5 mg PO DAILY HYPERTENSION 08/20/22 ammonium lactate 12 % topical cream 1 applic topical PRN PRN Skin Cleansing 08/20/22 apixaban 5 mg tablet (Eliquis) 5 mg PO BID BLOOD THINNER 08/20/22 arginine 7 gram-glutamine 7 gram-calcium HMB 1.5 gram oral powder pack (Blue) 1 ea PO BID SUPPLEMENT 08/20/22 calcium citrate 200 mg (950 mg) tablet 250 mg PO BID supplement 08/20/22 camphor-menthol 11 %-10 % topical cream ([place]) 1 applic topical PRN PRN Pain 08/20/22 divalproex 125 mg capsule,delayed release sprinkle 125 mg PO BID MOOD 08/20/22 isosorbide mononitrate 60 mg tablet,extended release 24 hr 60 mg PO TID HEART 08/20/22 menthol 0.44 %-zinc oxide 20.6 % topical ointment (Calmoseptine) 1 applic topical DAILY PRN Skin Cleansing 08/20/22 nystatin 100,000 unit/gram topical cream 1 applic topical DAILY SKIN 08/20/22 sitagliptin phosphate 25 mg tablet (Januvia) 25 mg PO DAILY DIABETES 08/20/22 sucralfate 1 gram tablet 1 g PO 4X/DAY DIARRHEA 08/20/22 tizanidine 4 mg tablet 4 mg PO 2200 PAIN 08/20/22 venlafaxine 100 mg tablet 100 mg PO BID DEPRESSION 08/20/22 insulin aspart U-100 100 unit/mL (3 mL) subcutaneous pen (Novolog FlexPen U-100 Insulin aspart) 9 unit (0.09 mL) subcut BID DIABETES 30 days #0 mL 09/07/22 morphine 10 mg/5 mL oral solution 5 mg (2.5 mL) PO DAILY PAIN 5 days #12.5 mL 09/07/22 morphine 10 mg/5 mL oral solution 5 mg (2.5 mL) PO Q6H PRN pain 5 days #50 mL 09/07/22 pregabalin 75 mg capsule 75 mg PO DAILY 14 days #14 caps 09/07/22 Hospital Course Operations - (L BKA) Summary of Care Provided Hospital Course: Patient is s/p L BKA performed on 09/03/22. She tolerated the procedure well. Incision site is closed with sutures, first half of which will be removed in 3 weeks at next office visit. No need to apply dressing unless oozing is noted, may just wear the cotton sleeve and stump protector. The stump protector/rigid removable device with extension should be in place during all transfers and ambulation. May be removed as needed for showers and therapy. Please ensure not to secure the velcro straps directly over the knee cap. Keep incision site clean and dry. Contact the office with any concerns for infection, dehiscence, or bleeding. Patient's pain is controlled on her current home regimen of PO morphine, will continue these orders for discharge, attending physician at SNF can assume these orders and adjust further as needed. Will also continue with 75mg Lyrica to address her phantom pains. Okay to continue Eliquis at this point. Patient informed that her short and long acting insulin had been increased to 30 units due to hyperglycemia associated with infection/antibiotics. As she is no longer on antibiotics/fighting an infection, she says her usual dose is 25 units of long-acting BID and 9 units BID of her short-acting so this is the regimen we will discharge her with, informed patient SNF will adjust as needed from there. Patient will return for post-op office visit in 3 weeks, our office will call to schedule with SNF. Physical Exam Const alert, oriented x3, no apparent distress and healthy appearing General Appearance: cooperative; Negative for combative or lethargic Orientation / Consciousness: awake Exam Limitations: no limitations HEENT Head and Scalp: normocephalic and atraumatic Eyes EOMs intact bilaterally General Eye: normal appearance of both eyes Neck full ROM General: trachea midline Resp normal respiratory effort and no use of accessory muscles Effort and Inspection: Negative for labored, stridor or audible wheezes Cardio regular rate and regular rhythm Back/Spine Cervical Spine: cervical ROM normal Extremity full ROM, normal capillary refill and no clubbing, cyanosis or edema Extremity Narrative: L BKA stump with incision C/D/I. Skin edges viable. Minimal oozing. No significant swelling, erythema, TTP. Skin no rashes or lesions noted Neuro oriented x3, CN's II-XII intact bilaterally, no focal motor deficits and no sensory deficits noted Psych thought process normal, cooperative, affect normal, speech normal and activity/motor behavior normal Weight / BMI Weight Weight: 175 lb 14.862 oz Body Mass Index (BMI) 29.2 ABG / Lab / Microbiology Data Result Diagrams: 09/04/22 06:25 08/23/22 12:38 Laboratory: Laboratory Results - last 24 hr 08/23/22 12:38: Crossmatch See Detail 09/05/22 22:39: POC Glucose 318 H 09/05/22 22:40: POC Glucose 334 H 09/06/22 12:36: POC Glucose 306 H 09/06/22 16:56: POC Glucose 267 H 09/06/22 21:56: POC Glucose 200 H 09/07/22 02:45: POC Glucose 193 H 09/07/22 06:37: POC Glucose 142 H Microbiology: Microbiology 09/06/22 11:00 Nasal Secretion SARS-CoV-2 Antigen (Rapid) - Final D/C Instructions Discharge Diet: No restrictions May shower in (days): 1 Additional Activity Instructions: Wear stump protector with ambulation/transfers. Call your doctor if your incision/area has: Sudden Increased Bleeding, Increased Pain/ Swelling and Foul Smelling Discharge Call your doctor if you observe: Fever of 101 or Higher Additional Dressing/Incision Instructions: Will remove the first half of the sutures in 3 weeks at your next office visit. You may cover if there is bleeding/drainage, but otherwise okay to leave uncovered and just place cotton sleeve over top. Continue to wear the rigid removable device with extension (stump protector) as directed. [employer] will maintain communication and help with obtaining prosthesis once the incision site has healed. Please Follow Up With: Con Terry MD When: 3 weeks Meaningful Use Info Meaningful Use Diagnoses (Choose all that apply): None applicable Discharge Plan Admission Admit Date/Time: 09/03/22 06:00 Primary Reason for Your Visit: L below knee amputation Attending Provider: Con Terry Primary Care Provider: Cno Johnson Discharge Orders/Prescriptions Prescriptions: New pregabalin 75 mg Capsule 75 mg PO DAILY 14 Days Qty: 14 0RF Continued Creon 24,000-76,000 -120,000 unit capsule,delayed release(DR/EC) 1 cap PO BID Rx Instructions: administer with meals and/or snacks Levemir FlexTouch U-100 Insuln 100 unit/mL (3 mL) insulin pen 25 unit subcut BID pravastatin 40 MG tablet 40 mg PO QHS Label Comments: CHOLESTEROL allopurinol 100 MG tablet 100 mg PO DAILY levothyroxine 75 MCG tablet 75 mcg PO QHS Label Comments: 1 (ONE) TABLET BEDTIME trazodone 100 MG tablet 100 mg PO 2200 metoclopramide HCl 10 MG tablet 10 mg PO Q8H PRN PRN (Reason: Nausea) Label Comments: TAKE 1 (ONE) TABLET EVERY 8 HOURS NEEDED FOR NAUSE AND/OR CONSTIPATION linaclotide 72 mcg capsule 72 mcg PO DAILY PRN (Reason: STOOL) nitroglycerin 0.4 MG bottle 0.4 mg SL TID PRN PRN (Reason: chest pain) polyethylene glycol 3350 17 GM packet 17 gm PO BID Label Comments: pt states takes only benefiber -or- miralex everyday as needed for constipation. sennosides-docusate sodium 1 TABLET tablet 1 tablet PO QHS esomeprazole magnesium 20 mg capsule,delayed release(DR/EC) 20 mg PO DAILY Label Comments: TAKE 1 CAPSULE BY MOUTH EVERY DAY fexofenadine 180 mg Tablet 180 mg PO DAILY sucralfate 1 gram Tablet 1 g PO 4X/DAY venlafaxine 100 mg Tablet 100 mg PO BID nystatin 100,000 unit/gram Cream 1 applic TOPICAL DAILY ammonium lactate 12 % Cream 1 applic TOPICAL PRN PRN (Reason: Skin Cleansing) divalproex 125 mg Capsule, Delayed Rel Sprinkle 125 mg PO BID Januvia 25 mg Tablet 25 mg PO DAILY [place] 11-10 % Cream 1 applic TOPICAL PRN PRN (Reason: Pain) menthol-zinc oxide [Calmoseptine] 0.44-20.6 % Ointment 1 applic TOPICAL DAILY PRN (Reason: Skin Cleansing) Blue 7-7-1.5 gram Powder In Packet 1 ea PO BID tizanidine 4 MG tablet 4 mg PO 2200 amlodipine 5 mg tablet 5 mg PO DAILY isosorbide mononitrate 60 mg tablet extended release 24 hr 60 mg PO TID calcium citrate 200 MG tablet 250 mg PO BID Rx Instructions: Hold it wile taking antibiotic Eliquis 5 mg tablet 5 mg PO BID Rx Instructions: 10 mg twice a day for the first week. Then 5 mg twice a day. carvedilol 25 mg tablet 25 mg PO BID Qty: 180 3RF Rx Instructions: TAKE 1 TABLET BY MOUTH TWICE A DAY clopidogrel 75 mg tablet 75 mg PO DAILY Qty: 90 3RF Label Comments: ask about stopping Changed insulin aspart U-100 [Novolog FlexPen U-100 Insulin] 100 unit/mL (3 mL) insulin pen 9 unit subcut BID 30 Days Qty: 0 0RF Discontinued morphine 10 MG/5 ML solution 0.25 ml PO DAILY morphine concentrate 100 mg/5 mL (20 mg/mL) Solution 5 mg PO Q4H PRN (Reason: Pain) pregabalin 25 mg Capsule 25 mg PO DAILY No Action morphine 10 mg/5 mL solution 5 mg PO DAILY 5 Days Qty: 12.5 0RF morphine 10 mg/5 mL solution 5 mg PO Q6H PRN (Reason: pain) 5 Days Qty: 50 0RF Referrals / Follow Up: Con Johnson MD [Primary Care Provider] - Disposition Disposition (needs filled in before D/C Order can be placed): Longterm Facility
[2022-09-07 09:45] VITALS: BP 139/46; PULSE 64; RESP 18; TEMP 36.9; O2SAT 100
--- NOTE | 2022-09-07 10:25 | CASEMGMT ---
Social Work Per physician pt is ready for discharge today. 7000 exemption form completed in [facility] and sent along with Discharge orders and covid results to [facility]. Pt and spouse updated and prefer WC transport. [facility] [address] via wheelchair Van. Pt, , bedside nurse and [facility] updated on pickup time. Plan: [facility], skilled level of care under convalescent care MARTIN Oropeza
--- NOTE | 2022-09-07 10:56 | NURSING ---
Report called to Fouzia at the [facility].
--- NOTE | 2022-09-07 10:56 | PHA.DC.MR ---
Pharmacy Service has performed discharge medication reconciliation for this patient upon transfer to [facility]. Home Medications pravastatin 40 mg tablet 40 mg PO QHS CHOLESTEROL 03/10/17 allopurinol 100 mg tablet 100 mg PO DAILY GOUT 03/17/20 [id number] 24,000-76,000-120,000 unit capsule,delayed rel (Creon) 1 cap PO BID IBS 04/05/20 levothyroxine 75 mcg tablet 75 mcg PO QHS THYROID 08/17/20 metoclopramide HCl 10 mg tablet 10 mg PO Q8H PRN PRN Nausea 08/17/20 trazodone 100 mg tablet 100 mg PO 2200 SLEEP 08/17/20 nitroglycerin 400 mcg/spray translingual 0.4 mg sublingual TID PRN PRN chest pain 09/19/20 polyethylene glycol 3350 17 gram oral powder packet 17 gm PO BID constipation 09/19/20 sennosides 8.6 mg-docusate sodium 50 mg tablet 1 tablet PO QHS constipation 09/19/20 esomeprazole magnesium 20 mg capsule,delayed release 20 mg PO DAILY GERD 12/08/20 fexofenadine 180 mg tablet 180 mg PO DAILY ALLERGIES 12/08/20 carvedilol 25 mg tablet 25 mg PO BID BP #180 tabs 02/02/22 insulin detemir U-100 100 unit/mL (3 mL) subcutaneous pen (Levemir FlexTouch U-100 Insulin) 25 unit subcut BID DIABETES 06/12/22 linaclotide 72 mcg capsule 72 mcg PO DAILY PRN STOOL 06/12/22 clopidogrel 75 mg tablet 75 mg PO DAILY CAD #90 tabs 08/03/22 amlodipine 5 mg tablet 5 mg PO DAILY HYPERTENSION 08/20/22 ammonium lactate 12 % topical cream 1 applic topical PRN PRN Skin Cleansing 08/20/22 apixaban 5 mg tablet (Eliquis) 5 mg PO BID BLOOD THINNER 08/20/22 arginine 7 gram-glutamine 7 gram-calcium HMB 1.5 gram oral powder pack (Blue) 1 ea PO BID SUPPLEMENT 08/20/22 calcium citrate 200 mg (950 mg) tablet 250 mg PO BID supplement 08/20/22 camphor-menthol 11 %-10 % topical cream ([place]) 1 applic topical PRN PRN Pain 08/20/22 divalproex 125 mg capsule,delayed release sprinkle 125 mg PO BID MOOD 08/20/22 isosorbide mononitrate 60 mg tablet,extended release 24 hr 60 mg PO TID HEART 08/20/22 menthol 0.44 %-zinc oxide 20.6 % topical ointment (Calmoseptine) 1 applic topical DAILY PRN Skin Cleansing 08/20/22 nystatin 100,000 unit/gram topical cream 1 applic topical DAILY SKIN 08/20/22 sitagliptin phosphate 25 mg tablet (Januvia) 25 mg PO DAILY DIABETES 08/20/22 sucralfate 1 gram tablet 1 g PO 4X/DAY DIARRHEA 08/20/22 tizanidine 4 mg tablet 4 mg PO 2200 PAIN 08/20/22 venlafaxine 100 mg tablet 100 mg PO BID DEPRESSION 08/20/22 insulin aspart U-100 100 unit/mL (3 mL) subcutaneous pen (Novolog FlexPen U-100 Insulin aspart) 9 unit (0.09 mL) subcut BID DIABETES 30 days #0 mL 09/07/22 morphine 10 mg/5 mL oral solution 5 mg (2.5 mL) PO DAILY PAIN 5 days #12.5 mL 09/07/22 morphine 10 mg/5 mL oral solution 5 mg (2.5 mL) PO Q6H PRN pain 5 days #50 mL 09/07/22 pregabalin 75 mg capsule 75 mg PO DAILY 14 days #14 caps 09/07/22 The patient's discharge medication list was reviewed for discrepancies and discrepancies were resolved.
== END 2022-09-07 12:15 | disposition skilled nursing facility (03) | DRG 617 ==
LOC: ACINP 06:02 → MS3 10:27
PROVIDERS: Anesthesiology; Admitting Provider Surgery Trauma Surgery; PCP Family Medicine; Referring Provider Surgery Trauma Surgery; Visit Provider Surgery Trauma Surgery
PROC: 0Y6J0Z1 Detachment at Left Lower Leg, High, Open Approach (ICD-10-PCS; principal; 2022-09-03 07:15)
DX: E11.621 Type 2 diabetes mellitus with foot ulcer (principal); L97.422 Non-pressure chronic ulcer of left heel and midfoot with fat layer exposed; I73.9 Peripheral vascular disease, unspecified; E11.42 Type 2 diabetes mellitus with diabetic polyneuropathy; Z79.4 Long term (current) use of insulin; E03.9 Hypothyroidism, unspecified; I25.10 Atherosclerotic heart disease of native coronary artery without angina pectoris; I10 Essential (primary) hypertension; E78.00 Pure hypercholesterolemia, unspecified; M10.9 Gout, unspecified; I25.2 Old myocardial infarction; Z20.822 Contact with and (suspected) exposure to COVID-19; Z79.01 Long term (current) use of anticoagulants; Z86.73 Personal history of transient ischemic attack (TIA), and cerebral infarction without residual deficits; Z95.5 Presence of coronary angioplasty implant and graft
CPT/HCPCS: 36415; 80048; 82962; 83036; 84443; 85025; 85027; 86850; 86900; 86901; 86920; 86922; 87426; 88307; 88311; 93005; 94668; 97110; 97162; 97166; 97530; 97535; 99252; A4648; J7030; J7120; A4216; G0463; J2405

== ENCOUNTER → 2022-11-01 | Outpatient (CLI) | payer MEDICARE, OTHER, SELFPAY ==
[2022-11-01 18:12] LABS: Bacteria 0 SEEN /hpf (None Seen); Mucous, Urine 0 SEEN /hpf (<or=2+); Red Blood Cells-Urine 0 SEEN /hpf (0-5); Squamous Epithelial Cells - UA 0 SEEN /hpf (5-10)
[2022-11-01 18:13] LABS: ALB/GLOB Ratio 0.7 RATIO (0.9-2.4); AST(SGOT) 17 U/L (15-37); Alanine Aminotransfer ALT/SGPT 24 U/L (13-56); Alkaline Phosphatase 142 U/L (45-117); Anion Gap 8 (5-15); BUN 38 mg/dL (7-18); BUN/Creat Ratio 24.8 RATIO (10-20); CRP 3.11 mg/L (0.0-3.0); Calcium,Total 8.5 mg/dL (8.5-10.1); Chloride 104 mmol/L (98-107); Creatinine, Serum 1.53 mg/dL (0.55-1.02); EST Glomerular Filtration Rate 35 mL/min (>60); Est Glom Filt Rate - Afr Amer 43 mL/min (>60); Globulin 4.6 g/dL (2.2-4.2); Glucose 358 mg/dL (74-106); Potassium 5.1 mmol/L (3.5-5.1); Protein, Total 7.6 g/dL (6.4-8.2); Sodium Level 131 mmol/L (136-145)
[2022-11-01 18:17] LABS: Hemoglobin A1c 7.4 % (3.8-5.6)
[2022-11-01 19:02] LABS: Color, Urine Yellow (Yellow); Glucose, Dipstick 1000 mg/dl (Normal); Ketone-Dipstick Negative (Negative); Leukocyte Esterase-Dipstick 500 /ul (Negative); Nitrite-Dipstick Negative (Negative); Occult Blood-Urine 150 /ul (Negative); Protein-Dipstick 100 mg/dl (Negative); Specific Gravity, Urine 1.015 (1.002-1.030); Urine Bilirubin Dipstick Negative (Negative); Urine Clarity Cloudy (Clear); Urine Urobilinogen Normal (Normal)
[2022-11-01 19:14] LABS: White Blood Cells >100 SEEN /hpf (0-5)
== END | disposition home or self-care (01) ==
PROVIDERS: PCP Family Medicine; Referring Provider Family Medicine; Visit Provider Family Medicine
DX: E11.22 Type 2 diabetes mellitus with diabetic chronic kidney disease (principal); Z79.4 Long term (current) use of insulin; N18.2 Chronic kidney disease, stage 2 (mild); G89.4 Chronic pain syndrome; N39.0 Urinary tract infection, site not specified
CPT/HCPCS: 36415; 80053; 81001; 83036; 86140; 87077; 87086; 87088; 87186

== ENCOUNTER → 2022-12-06 | Outpatient (CLI) | payer MEDICARE, OTHER, SELFPAY ==
[2022-12-06 17:57] LABS: Hemoglobin A1c 9.3 % (3.8-5.6)
[2022-12-06 18:30] LABS: ALB/GLOB Ratio 0.7 RATIO (0.9-2.4); AST(SGOT) 24 U/L (15-37); Alanine Aminotransfer ALT/SGPT 33 U/L (13-56); Albumin, Serum 3.2 g/dL (3.2-5.0); Alkaline Phosphatase 119 U/L (45-117); Anion Gap 6 (5-15); BUN 38 mg/dL (7-18); BUN/Creat Ratio 26.8 RATIO (10-20); Calcium,Total 9.1 mg/dL (8.5-10.1); Chloride 102 mmol/L (98-107); Creatinine, Serum 1.42 mg/dL (0.55-1.02); EST Glomerular Filtration Rate 38 mL/min (>60); Est Glom Filt Rate - Afr Amer 46 mL/min (>60); Globulin 4.4 g/dL (2.2-4.2); Glucose 185 mg/dL (74-106); Potassium 4.7 mmol/L (3.5-5.1); Protein, Total 7.6 g/dL (6.4-8.2); Sodium Level 134 mmol/L (136-145)
[2022-12-08 05:07] LABS: Fructosamine 381 umol/L (0-285)
== END | disposition home or self-care (01) ==
PROVIDERS: PCP Family Medicine; Visit Provider Family Medicine
DX: L60.8 Other nail disorders (principal); E11.22 Type 2 diabetes mellitus with diabetic chronic kidney disease; Z79.4 Long term (current) use of insulin; N18.2 Chronic kidney disease, stage 2 (mild)
CPT/HCPCS: 36415; 80053; 82985; 83036; 87070; 87077; 87101; 87186; 87205

== ENCOUNTER → 2022-12-20 | Outpatient (CLI) | payer MEDICARE, OTHER, SELFPAY | END | disposition home or self-care (01) | LOC: LABSPEC 15:48 | PROVIDERS: PCP Family Medicine; Referring Provider Surgery; Visit Provider Surgery | DX: L72.3 Sebaceous cyst (principal); L08.9 Local infection of the skin and subcutaneous tissue, unspecified | CPT/HCPCS: 87070; 87075; 87186; 87205 ==

== ENCOUNTER → 2023-01-01 | Outpatient (CLI) | payer MEDICARE, OTHER, SELFPAY ==
--- NOTE | 2023-01-01 13:05 | STRESSREP ---
Stress Test Report Pharmacologic myocardial perfusion stress test. 77-year-old lady with a history of chest pain Resting EKG demonstrates sinus rhythm with a rate of 71 bpm. Resting blood pressure is 168/70 mmHg. 0.4 mg of regadenoson was infused per usual protocol followed by rapid intravenous saline flush injection. Continuous EKG monitoring was performed. The maximum heart rate was 105 bpm which was 72% of max impacted heart rate the maximum workload was 1 metabolic equivalent. At rest there were no ST or T wave changes noted to suggest ischemia and at peak infusion nonspecific ST changes were noted which did not meet the criteria for ischemia. No clinical angina is noted. The final blood pressure was 138/64 mmHg. Myocardial perfusion protocol. 11.2 mCi of technetium 99m sestamibi was injected at rest. 0.4 mg of regadenoson was infused per usual protocol. At peak infusion 33.9 mCi of technetium 99m sestamibi was injected stress images were obtained stress and rest images were reconstructed and compared in the short axis vertical long and horizontal long axis. Gated images were also obtained. Perfusion SPECT analysis: Review of the stress images demonstrate normal uptake of tracer noted in all areas of the myocardium. The resting images similar demonstrated normal uptake of tracer noted in all areas of the myocardium. No areas of reversibility are noted to suggest ischemia and no previous infarct is noted. Gated SPECT analysis: The gated ejection fraction is 60%. Conclusion: Normal pharmacologic myocardial perfusion stress test. Preserved ejection fraction.
== END | disposition home or self-care (01) ==
LOC: CVS 07:26
PROVIDERS: PCP Family Medicine; Referring Provider Physician Assistant Medical; Visit Provider Physician Assistant Medical
DX: R07.9 Chest pain, unspecified (principal)
CPT/HCPCS: 78452; 93017; A9500; A4216; J2785

== ENCOUNTER → 2023-02-08 | Outpatient (CLI) | payer MEDICARE, OTHER, SELFPAY | END | disposition home or self-care (01) | LOC: LABSPEC 08:52 | PROVIDERS: PCP Family Medicine; Referring Provider Family Medicine; Visit Provider Family Medicine | DX: R30.0 Dysuria (principal) ==

== ENCOUNTER 2023-03-07 12:00 | Outpatient (RCR) | payer MEDICARE, OTHER, SELFPAY ==
--- NOTE | 2022-10-30 09:30 | HP.PTEVAL ---
Patient's Visit Information SEBASTIÁN REYES is a 77 year old F referred to Physical Therapy by Dr. Con Johnson MD with a diagnosis of CONDITIONING AND GAIT TRAINING FOR ORTHOTICS S/P BKA. Date of Evaluation: 10/30/22 Physical Therapist: Judson Sun, PT, Cert MDT, OCS - Visit Plan Frequency: 2x /Week Duration: 8WEEKS Plan: s/p BKA. uses electric w/c for mobility. PT INTERVETIONS MOBILITY TRIAINING,STRENGTHNEING BLE/UE, ENDURANCE PROGRAM ,BALANCE/TRAINING AND FUNCTIONAL STRENGTHNEING - Subjective This 77 y/o female presents to physical therapy with right BKA. Patient underwent s/p right BKA on 08/27 at [facility] then transferred to SNF at [facility]. Patient underwent surgery due left foot wound that did not heel and had severe pain. Patient d/c ~ 1week ago to home . Patient uses PMD and has kneeling walker at home. Patient states distal stump heeling without phantom pain. Patient has mild paresthesia left distal stump and severe on right lower leg. Patient has not walk for ~ 5 years. 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 Patient lives 1 story home with one story home with ramp entrance , walk in shower with seat in shower ,bedside commode ,grab bars. Patient has spouse for ADLS's Patient needs assist with dressing ,cooking ,cleaning and begum aid with cleaning. Patient sleeps well. Patient will be working with [employer] for prosthetic leg. Patient transfers I with pivot transfers . Patient goals to walk. SOCIAL : . VOCATION: retired - Objective POSTURE: posterior pelvic tilt ,rounded shoulders. NEURO: decrease sensation right foot with decrease light touch. SKIN: incision well approximate dry ,scaly. AROM: left supine knee flexion 0-110 degrees ,hip abduction 40 degrees ,hip extension 10 degrees. MOBILITY: electric w/c. MMT : ( peak force) right quads 16.2 left 26.8,hamstrings right 14.2 ,left 22.7 ,hip flexion right 10.2,left 19.3 ,ankle 4/5. TRANSFERS: standing pivot with supervision. BED MOBILITY: supine-sit min assist. SITTING: balance good. MMT: BUE grossly 4-/5. STANDING BALANCE: fair- - Balance/Special Test Scores Lower Extremity Functional Score: 15 - Goals Goal 1:: Patient to be I with HEP for strengthening Goal Time Frame: 6-8 Weeks Goal 2:: Patient to demonstrate 50% improvement with improved function Goal Time Frame: 6-8 Weeks Goal 3:: Patient to improve peak force of BLE quads/hams/hip by 5-10 to improve function. Goal Time Frame: 6-8 Weeks Goal 4:: Patient to improve LFES score by 5-10 points to improve function Goal Time Frame: 6-8 Weeks Goal 5:: Patient to improve pre-gait function prior to prothesis Goal Time Frame: 6-8 Weeks - Rehabilitation Potential Physical Therapy Diagnosis: Patient underwent s/p BKA with decrease ROM ,strength ,unable to ambulate thus benefit from skilled PT Rehabilitation Potential: Good - Anticipated Interventions Patient/Client Instruction: Educate patient on: Condition, Plan of Care For the Purpose of:: To decrease pain, To increase ROM, To improve muscle performance and motor function, To improve ability to perform ADL's, To increase tolerance to activity/condition/position, To improve ability of physical actions for home/community/work/leisure, To improve gait and locomotor functions, To improve health of tissue, To decrease soft tissue restriction, To improve endurance, To improve balance, To improve safety with gait, To improve tolerance to ADL's Therapeutic Exercise to Include: Strength training, Endurance training, Balance training, Postural training, Flexibilty training, Gait and locomotor training, Passive ROM, Active ROM For the Purpose of:: To decrease pain, To increase ROM, To improve muscle performance and motor function, To improve ability to perform ADL's, To increase tolerance to activity/condition/position, To improve ability of physical actions for home/community/work/leisure, To improve gait and locomotor functions, To increase flexibility/ROM, To improve endurance, To improve balance Thank you for the opportunity to evaluate your patient. For Medicare and Medicare HMO plans, please review the plan of care and approve it. It will need to be FAXED BACK to us at [phone] for Medicare purposes. For Medicare only, by signing this I certify the plan of care. Please let me know if there are questions or concerns regarding this plan of care. Physician Signature: Date:
--- NOTE | 2022-12-17 12:03 | HP.PTREVAL_ITS ---
Re-Evaluation Intro: Dr. Con Johnson MD, It has been my pleasure to treat SEBASTIÁN REYES over the last 5 visits for CONDITIONING AND GAIT TRAINING FOR ORTHOTICS S/P BKA. Please see the progress note below for an update on the physical therapy plan of care! Subjective Subjective: Patient received prothesis leg Objective Objective/Function: POSTURE: hips knee flexed. Gait: ambulates with left prosthesis with decrease knee extension short step length ,slow analisa NEURO: decrease sensation right foot with decrease light touch. SKIN: incision well approximate dry distal stump well approximate AROM: left supine knee flexion 0- 110 degrees ,hip abduction 40 degrees ,hip extension 10 degrees. MOBILITY: electric w/c. MMT : ( peak force) right quads 17.2 left 26.8,hamstrings right 16.2 ,left 22.7 ,hip flexion right 12.2,left 19.9 ,ankle 4/5. TRANSFERS: sit- stand min assist . BED MOBILITY: supine-sit supervsion. SITTING: balance good. MMT: BUE grossly 4-/5. STANDING BALANCE: fair- with fww Plan Plan Plan: s/p BKA - PT INTERVETIONS PROSTHETIC TRAINING ,GAIT TRAINING WITH PROTHESES ,STRENGTHENING BLE , BALANCE TRAINING AND FUNCTION STRENGTENING Balance/Gait/Functional tests Balance/Special Test Scores Lower Extremity Functional Score: 15 Goals Goals Goal 1:: Patient to be I with HEP for strengthening Goal Time Frame: 6-8 Weeks Goal 2:: Patient to demonstrate 50% improvement with improved function Goal Time Frame: 6-8 Weeks Goal 3:: Patient to improve peak force of BLE quads/hams/hip by 5-10 to improve function. Goal Time Frame: 6-8 Weeks Goal 4:: Patient to improve LFES score by 5-10 points to improve function Goal Time Frame: 6-8 Weeks Goal 5:: Patient to improve pre-gait function prior to prothesis Goal Time Frame: 6-8 Weeks Goal 6:: Patient to ambulate with fww with left prothesis 100 ft with SBA Goal Time Frame: 6-8 Weeks Anticipated Interventions Anticipated Interventions Patient/Client Instruction: Educate patient on: Condition and Plan of Care For the Purpose of:: To decrease pain, To increase ROM, To improve muscle performance and motor function, To improve ability to perform ADL's, To increase tolerance to activity/condition/position, To improve ability of physical actions for home/community/work/leisure, To improve gait and locomotor functions, To improve health of tissue, To decrease soft tissue restriction, To improve endurance, To improve balance, To improve safety with gait and To improve tolerance to ADL's Therapeutic Exercise to Include: Strength training, Endurance training, Balance training, Postural training, Flexibilty training, Gait and locomotor training, Passive ROM and Active ROM For the Purpose of:: To decrease pain, To increase ROM, To improve muscle performance and motor function, To improve ability to perform ADL's, To increase tolerance to activity/condition/position, To improve ability of physical actions for home/community/work/leisure, To improve gait and locomotor functions, To increase flexibility/ROM, To improve endurance and To improve balance Re-Evaluation Ending Re-evaluation ending: Please do not hesitate to contact me at [phone] by phone or if you have questions or concerns regarding this new plan of care! Sincerely, Judson Sun, PT, Cert MDT, OCS
--- NOTE | 2023-01-17 12:07 | HP.PTREVAL ---
Re-Evaluation Intro: Dr. Con Johnson MD, It has been my pleasure to treat SEBASTIÁN REYES over the last 10 visits for CONDITIONING AND GAIT TRAINING FOR ORTHOTICS S/P BKA. Please see the progress note below for an update on the physical therapy plan of care! Subjective Subjective: Doing better Needs adjustments with prothesis Objective Objective/Function: Objective/Function: POSTURE: hips knee flexed. Gait: ambulates 200 ft with left prosthesis with reciprocal pattern with prothesis rotates ER NEURO: decrease sensation right foot with decrease light touch. SKIN: incision well approximate dry distal stump well approximate AROM: left supine knee flexion 0-110 degrees ,hip abduction 40 degrees ,hip extension 10 degrees. MOBILITY: electric w/c. MMT : ( peak force) right quads 26.2 left 26.8,hamstrings right 22.3 ,left 28.7 ,hip flexion right 20.21,left 23.9 ,ankle 4/5. TRANSFERS: sit-stand supervsion . BED MOBILITY: supine-sit MOD I. SITTING: balance good. MMT: BUE grossly 4-/5. STANDING BALANCE: fair with fww Plan Plan Plan: s/p BKA - PT INTERVETIONS PROSTHETIC TRAINING ,GAIT TRAINING WITH PROTHESES ,STRENGTHENING BLE , BALANCE TRAINING AND FUNCTION STRENGTENING Balance/Gait/Functional tests Balance/Special Test Scores Lower Extremity Functional Score: 21 Goals Goals Goal 1:: Patient to be I with HEP for strengthening Goal Time Frame: 6-8 Weeks Goal Progress: Progressing Goal 2:: Patient to demonstrate 50% improvement with improved function Goal Time Frame: 6-8 Weeks Goal Progress: Progressing Goal 3:: Patient to improve peak force of BLE quads/hams/hip by 5-10 to improve function.( NEW GOAL) Goal Time Frame: 6-8 Weeks Goal Progress: Progressing Goal 4:: Patient to improve LFES score by 5-10 points to improve function Goal Time Frame: 6-8 Weeks Goal Progress: Progressing Goal 5:: Patient to improve pre-gait function prior to prothesis Goal Time Frame: 6-8 Weeks Goal Progress: Goal Met Goal 6:: Patient to ambulate with fww with left prothesis 500 FT with improved gait pattern( new goals) Goal Time Frame: 6-8 Weeks Anticipated Interventions Anticipated Interventions Patient/Client Instruction: Educate patient on: Condition and Plan of Care For the Purpose of:: To decrease pain, To increase ROM, To improve muscle performance and motor function, To improve ability to perform ADL's, To increase tolerance to activity/condition/position, To improve ability of physical actions for home/community/work/leisure, To improve gait and locomotor functions, To improve health of tissue, To decrease soft tissue restriction, To improve endurance, To improve balance, To improve safety with gait and To improve tolerance to ADL's Therapeutic Exercise to Include: Strength training, Endurance training, Balance training, Postural training, Flexibilty training, Gait and locomotor training, Passive ROM and Active ROM For the Purpose of:: To decrease pain, To increase ROM, To improve muscle performance and motor function, To improve ability to perform ADL's, To increase tolerance to activity/condition/position, To improve ability of physical actions for home/community/work/leisure, To improve gait and locomotor functions, To increase flexibility/ROM, To improve endurance and To improve balance Re-Evaluation Ending Re-evaluation ending: Please do not hesitate to contact me at [phone] by phone or if you have questions or concerns regarding this new plan of care! Sincerely, Judson Sun, PT, Cert MDT, OCS
--- NOTE | 2023-02-01 15:32 | HP.PTDCSUM ---
Discharge Summary D/C summary: It has been my pleasure to treat SEBASTIÁN REYES referred by Dr. Con Johnson MD, with the diagnosis of CONDITIONING AND GAIT TRAINING FOR ORTHOTICS S/P BKA for a total of 13 visit(s). Discharge Date: Please see the following information for a summary of their discharge status. Subjective Subjective: Pt states she having a hard time with her prosthetic fit, even with the smallest stocking. 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 Overall Improvement % Improvement: 40 Objective Objective/Function: Pt conts to do well with all activities. Much less anxious today about falling fwd with sit to stands - no retro LOB episodes today. Increased amb distance with SC. Goals Goal 1:: Patient to be I with HEP for strengthening Goal Progress: Progressing Goal 2:: Patient to demonstrate 50% improvement with improved function Goal Progress: Progressing Goal 3:: Patient to improve peak force of BLE quads/hams/hip by 5-10 to improve function.( NEW GOAL) Goal Progress: Progressing Goal 4:: Patient to improve LFES score by 5-10 points to improve function Goal Progress: Progressing Goal 5:: Patient to improve pre-gait function prior to prothesis Goal Progress: Goal Met Goal 6:: Patient to ambulate with fww with left prothesis 500 FT with improved gait pattern( new goals) Plan Plan: s/p BKA - PT INTERVETIONS PROSTHETIC TRAINING ,GAIT TRAINING WITH PROTHESES ,STRENGTHENING BLE , BALANCE TRAINING AND FUNCTION STRENGTENING D/C Information d/c sentence: If there are questions or concerns regarding this patient's physical therapy, please feel free to call me at [phone]. Thank you for the referral of this patient. Sincerely, Jhoan De La Vega, PT, ATC Balance/Gait/Functional tests Balance/Special Test Scores Lower Extremity Functional Score: 21 Quick DASH Score: 61.3625 Improvement % Improvement: 40
--- NOTE | 2023-02-14 14:28 | HP.PTREVAL ---
Re-Evaluation Intro: Dr. Con Johnson MD, It has been my pleasure to treat SEBASTIÁN REYES over the last 16 visits for CONDITIONING AND GAIT TRAINING FOR ORTHOTICS S/P BKA. Please see the progress note below for an update on the physical therapy plan of care! Subjective Subjective: Doing well goal is walk with cane Objective Objective/Function: POSTURE: hips knee flexed. Gait: ambulates 200 ft with left prosthesis with reciprocal pattern with prothesis rotates ER NEURO: decrease sensation right foot with decrease light touch. SKIN: incision well approximate no skin break down AROM: left supine knee flexion 0-120 degrees ,hip abduction 40 degrees ,hip extension 10 degrees. MMT : ( peak force) right quads 36.2 left 28.8,hamstrings right 28.3 ,left 31.7 ,hip flexion right 28.21,left 27.9 ,ankle 4/5. TRANSFERS: sit-stand fair+ . BED MOBILITY: supine-sit MOD I. SITTING: balance good. MMT: BUE grossly 4-/5. STANDING BALANCE: fair+ with fww, fair dynamic balance with cane Ambulated with straight cane 2 point with CGA/min assist unsteady GAIT: ambualted with fww mod I with 300 ft > Plan Plan Plan: s/p BKA - PT INTERVETIONS PROSTHETIC TRAINING ,GAIT TRAINING WITH PROTHESES ,STRENGTHENING BLE , BALANCE TRAINING AND FUNCTION STRENGTENING Balance/Gait/Functional tests Balance/Special Test Scores Lower Extremity Functional Score: 37 Quick DASH Score: 61.3625 Goals Goals Goal 1:: Patient to be I with HEP for strengthening Goal Time Frame: 6-8 Weeks Goal Progress: Progressing Goal 2:: Patient to demonstrate 70% improvement with improved function (new goals) Goal Time Frame: 6-8 Weeks Goal Progress: Progressing Goal 3:: Patient to improve peak force of BLE quads/hams/hip by 5-10 to improve function.( NEW GOAL) Goal Time Frame: 6-8 Weeks Goal Progress: Progressing Goal 4:: Patient to improve LFES score by 5-10 points to improve function( new goal) Goal Time Frame: 6-8 Weeks Goal Progress: Progressing Goal 5:: Patient to improve pre-gait function prior to prothesis Goal Time Frame: 6-8 Weeks Goal Progress: Goal Met Goal 6:: Patient to ambulate with fww with left prothesis 500 FT with improved gait pattern( new goals) Goal Time Frame: 6-8 Weeks Anticipated Interventions Anticipated Interventions Patient/Client Instruction: Educate patient on: Condition and Plan of Care For the Purpose of:: To decrease pain, To increase ROM, To improve muscle performance and motor function, To improve ability to perform ADL's, To increase tolerance to activity/condition/position, To improve ability of physical actions for home/community/work/leisure, To improve gait and locomotor functions, To improve health of tissue, To decrease soft tissue restriction, To improve endurance, To improve balance, To improve safety with gait and To improve tolerance to ADL's Therapeutic Exercise to Include: Strength training, Endurance training, Balance training, Postural training, Flexibilty training, Gait and locomotor training, Passive ROM and Active ROM For the Purpose of:: To decrease pain, To increase ROM, To improve muscle performance and motor function, To improve ability to perform ADL's, To increase tolerance to activity/condition/position, To improve ability of physical actions for home/community/work/leisure, To improve gait and locomotor functions, To increase flexibility/ROM, To improve endurance and To improve balance Re-Evaluation Ending Re-evaluation ending: Please do not hesitate to contact me at [phone] by phone or if you have questions or concerns regarding this new plan of care! Sincerely, Judson Sun PT, Cert MDT, OCS
== END 2023-03-07 19:00 | disposition home or self-care (01) ==
LOC: PT 12:00
PROVIDERS: PCP Family Medicine; Referring Provider Family Medicine; Visit Provider Family Medicine
DX: R26.9 Unspecified abnormalities of gait and mobility (principal); Z96.653 Presence of artificial knee joint, bilateral; M54.9 Dorsalgia, unspecified; G89.29 Other chronic pain
CPT/HCPCS: 87077; 87086; 87088; 87186; 97110; 97140; 97161; 97162; 97530

== ENCOUNTER 2023-06-10 13:41 | Emergency (ER) | payer MEDICARE, OTHER, SELFPAY ==
[2023-06-10 13:44] VITALS: BP 168/66; PULSE 76; RESP 18; TEMP 36.2; O2SAT 94
--- NOTE | 2023-06-10 14:16 | EX.ED.DYSGE1 ---
HPI History of Present Illness Chief Complaint: Neuro S/Sx Informant: patient, spouse/S.O. and family Narrative Narrative: 77-year-old female multiple medical problems including stroke peripheral artery disease CABG DVT on Eliquis and left BKA. Patient states that she woke this morning around 0700. She states she could not move and had difficulty dialing the phone and could not speak loud enough for her to hear. She also had mid to right chest pain that went into her right arm. She took nitroglycerin which seemed to change it to a sharp pain noticed that her blood pressure was up family convinced her to come in for evaluation Going back into the history and asking her more specifics it was not that she could not move. She was more weak. She states she has tingling in all of her fingertips. She states that she could not dial the phone number but could press the emergency button on it. She has not taken all of her medications including her anxiety medicine and her morphine today. Patient denies any new medications in the past couple months. She denies any medication dose changes. No fevers. She states she had diarrhea couple days ago which is not uncommon for her. She notes no change in urination/incontinence. No cough. No vomiting. Patient had a stress nuclear stress test in December 2022 that was negative. [facility] Medical History Acquired equinus deformity of left foot Acute hyperkalemia Amput foot, unilat-complicated Anemia Anxiety Atherosclerotic heart disease of [place] coronary artery without angina pectoris Back pain Blackout Bladder disease Cardiology follow-up encounter Carpal tunnel syndrome Charcot foot due to diabetes mellitus Charcot's joint of left foot Chest pain Delayed wound healing Dietary restriction DVT (deep venous thrombosis) Equinus contracture of left ankle Essential hypertension Gastric reflux GERD (gastroesophageal reflux disease) GI bleed Gout High cholesterol History of blood clots History of Clostridium difficile infection History of CVA (cerebrovascular accident) History of echocardiogram History of edema History of heart attack History of IBS History of non-ST elevation myocardial infarction (NSTEMI) (08/2020) History of renal disease History of stress test Humerus fracture Hyperlipidemia Hypothyroidism Insulin dependent diabetes mellitus Iron deficiency anemia Left-sided extracranial carotid artery stenosis Migraines MRSA infection Non-pressure chronic ulcer of left ankle with necrosis of muscle Non-pressure chronic ulcer of other part of left foot with fat layer exposed Non-pressure chronic ulcer of other part of left foot with fat layer exposed 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 evidence of necrosis Non-smoker Obesity Open wound Opioid dependence Osteoporosis Other acute postprocedural pain PAD (peripheral artery disease) Peripheral arterial occlusive disease Post-menopausal Restless legs Shortness of breath on exertion Sleep apnea Stenosis of right subclavian artery Stroke/cerebrovascular accident Thyroid disease Type 2 diabetes mellitus with diabetic polyneuropathy Type 2 diabetes mellitus with diabetic polyneuropathy Type 2 diabetes mellitus with foot ulcer Ulcer of abdomen wall with fat layer exposed Ulcer of left foot with fat layer exposed Uses wheelchair Vitamin D deficiency Wears dentures Wears glasses Home Medications pravastatin 40 mg tablet 40 mg PO QHS CHOLESTEROL 03/10/17 [History Last Taken 12/07/20] allopurinol 100 mg tablet 100 mg PO DAILY GOUT 03/17/20 [History Last Taken 12/08/20] vvttua-arxlczff-dinaeib 24,000-76,000-120,000 unit capsule,delayed rel (Creon) 1 cap PO BID IBS 04/05/20 [History Last Taken 12/08/20] levothyroxine 75 mcg tablet 75 mcg PO QHS THYROID 08/17/20 [History Last Taken 12/07/20] metoclopramide HCl 10 mg tablet 10 mg PO Q8H PRN PRN Nausea 08/17/20 [History Last Taken 12/07/20] trazodone 100 mg tablet 100 mg PO 2200 SLEEP 08/17/20 [History Last Taken 12/07/20] polyethylene glycol 3350 17 gram oral powder packet 17 gm PO BID constipation 09/19/20 [History Last Taken 12/08/20] sennosides 8.6 mg-docusate sodium 50 mg tablet 1 tablet PO QHS constipation 09/19/20 [History Last Taken 12/07/20] esomeprazole magnesium 20 mg capsule,delayed release 20 mg PO DAILY GERD 12/08/20 [History Last Taken 09/03/22] fexofenadine 180 mg tablet 180 mg PO DAILY ALLERGIES 12/08/20 [History Last Taken 12/08/20] insulin detemir U-100 100 unit/mL (3 mL) subcutaneous pen (Levemir FlexTouch U-100 Insulin) 25 unit subcut BID DIABETES 06/12/22 [History Last Taken Unknown] linaclotide 72 mcg capsule 72 mcg PO DAILY PRN STOOL 06/12/22 [History Last Taken Unknown] clopidogrel 75 mg tablet 75 mg PO DAILY CAD #90 tabs 08/03/22 [Rx Last Taken 08/31/22] ammonium lactate 12 % topical cream 1 applic topical PRN PRN Skin Cleansing 08/20/22 [History Last Taken Unknown] apixaban 5 mg tablet (Eliquis) 5 mg PO BID BLOOD THINNER 08/20/22 [History Last Taken 08/31/22] arginine 7 gram-glutamine 7 gram-calcium HMB 1.5 gram oral powder pack (Blue) 1 ea PO BID SUPPLEMENT 08/20/22 [History Last Taken Unknown] calcium citrate 200 mg (950 mg) tablet 250 mg PO BID supplement 08/20/22 [History Last Taken Unknown] camphor-menthol 11 %-10 % topical cream ([place]) 1 applic topical PRN PRN Pain 08/20/22 [History Last Taken Unknown] divalproex 125 mg capsule,delayed release sprinkle 125 mg PO BID MOOD 08/20/22 [History Last Taken 09/03/22] menthol 0.44 %-zinc oxide 20.6 % topical ointment (Calmoseptine) 1 applic topical DAILY PRN Skin Cleansing 08/20/22 [History Last Taken Unknown] nystatin 100,000 unit/gram topical cream 1 applic topical DAILY SKIN 08/20/22 [History Last Taken Unknown] sitagliptin phosphate 25 mg tablet (Januvia) 25 mg PO DAILY DIABETES 08/20/22 [History Last Taken Unknown] sucralfate 1 gram tablet 1 g PO 4X/DAY DIARRHEA 08/20/22 [History Last Taken Unknown] tizanidine 4 mg tablet 4 mg PO 2200 PAIN 08/20/22 [History Last Taken Unknown] venlafaxine 100 mg tablet 100 mg PO BID DEPRESSION 08/20/22 [History Last Taken 09/03/22] insulin aspart U-100 100 unit/mL (3 mL) subcutaneous pen (Novolog FlexPen U-100 Insulin aspart) 9 unit (0.09 mL) subcut BID DIABETES 30 days #0 mL 09/07/22 [Rx Last Taken Unknown] morphine 10 mg/5 mL oral solution 5 mg (2.5 mL) PO DAILY PAIN 5 days #12.5 mL 09/07/22 [Rx Last Taken Unknown] pregabalin 75 mg capsule 75 mg PO DAILY 14 days #14 caps 09/07/22 [Rx Last Taken Unknown] isosorbide mononitrate 60 mg tablet,extended release 24 hr 60 mg PO TID HEART 90 days #270 tabs 09/24/22 [Rx Last Taken Unknown] oxybutynin chloride 10 mg tablet,extended release 24 hr 10 mg PO DAILY 10/02/22 [History Last Taken Unknown] amlodipine 10 mg tablet 10 mg PO DAILY HYPERTENSION #90 tabs 12/18/22 [Rx Last Taken Unknown] doxycycline hyclate 100 mg capsule 100 mg PO BID 12/27/22 [History Last Taken Unknown] carvedilol 25 mg tablet 25 mg PO BID BP #180 tabs 12/28/22 [Rx Last Taken Unknown] hydralazine 25 mg tablet 25 mg PO TID #90 tabs 03/25/23 [Rx Last Taken Unknown] nitroglycerin 400 mcg/spray translingual 0.4 mg sublingual TID PRN PRN chest pain #4.9 grams 05/06/23 [Rx Last Taken Unknown] Allergy/AdvReac Type Severity Reaction Status Date / Time atorvastatin calcium Allergy Unknown Verified 06/10/23 13:43 [From Lipitor] bupropion HCl Allergy Unknown Verified 06/10/23 13:43 [From Wellbutrin] mannitol [From Reclast] Allergy joint Verified 06/10/23 13:43 pain, unable to breathe, unable to walk propoxyphene napsylate Allergy Unknown Verified 06/10/23 13:43 [From Darvocet-N 100] Quinolones Allergy Unknown Verified 06/10/23 13:43 Tetanus Vaccines and Toxoid Allergy Chest Verified 06/10/23 13:43 [Tetanus Vaccines & Toxoid] tightness zoledronic acid Allergy joint Verified 06/10/23 13:43 [From Reclast] pain,unable to breathe, unaable to walk gemfibrozil AdvReac Intermediate Unknown Verified 06/10/23 13:43 amoxicillin AdvReac Mild Rash Verified 06/10/23 13:43 NSAIDS (Non-Steroidal AdvReac Other Verified 06/10/23 13:43 Anti-Inflamma Family History Mother , age 75 Cancer CVA (cerebral vascular accident) CAD (coronary artery disease) Father CAD (coronary artery disease) History of coronary artery bypass graft Sister CAD (coronary artery disease) Multiple sclerosis Other Anxiety Bleeding disorder Depression Diabetes Heart disease High cholesterol Hypertension Surgical History H/O coronary artery bypass surgery (09/09/14) History of Achilles tendon repair History of angioplasty of peripheral vessel (12/2014) History of appendectomy History of cholecystectomy History of [place] amputation of left foot History of coronary artery stent placement (09/22/20) History of excision of lesion History of foot surgery History of gastric bypass History of neck surgery History of ventral hernia repair Hx of amputation of foot Hx of ventral hernia repair Social History Smoking Status: Never smoker alcohol intake: never substance use type: does not use caffeine: Yes Type: coffee what type of physical activity do you participate in: none seatbelt use: sometimes do you feel safe at home: Yes additional social history: DOES NOT TAKE ASPIRIN DOES TAKE IBUPROFEN NEEDED ROS ROS ED ROS Narrative Generalized weakness Constitutional Constitutional ED: Denies chills, fever(s) or weight loss Eyes Eyes: Denies change in vision or diplopia ENT ENT ED: Reports other Details: Dry mouth. ; Denies ear pain, rhinorrhea or sore throat Cardiovascular Cardiovascular: Reports chest pain; Denies orthopnea, palpitations or racing heartbeat Respiratory/Chest Respiratory/Chest: Denies cough, dyspnea or orthopnea Gastrointestinal Gastrointestinal: Denies abdominal pain, diarrhea, nausea or vomiting Genitourinary Genitourinary ED: Denies dysuria, hematuria or urinary frequency Musculoskeletal Musculoskeletal: Denies arthralgias or myalgias Integumentary Denies abscess or rash Neurologic Neurologic: Reports other Details: Tingling likely in all fingertips Patient states she feels shaky ; Denies headache(s) or weakness Psychiatric Psychiatric: Reports anxiety; Denies depression, suicidal ideation or suicidal thoughts Endocrine Endocrinology: Denies polydipsia, polyphagia or polyuria Allergic/Immunologic Allergic/Immunologic ED: Denies mouth swelling, tongue swelling or urticaria EXAM Physical Exam Const Vital Signs: 06/10/23 13:44 01/15/24 15:00 06/10/23 16:00 Temperature 97.1 F L Temperature Source Temporal Pulse Rate 76 73 Respiratory Rate 18 16 16 Blood Pressure 168/66 H 145/109 H Blood Pressure Mean 100 121 Pulse Ox 94 95 Oxygen Delivery Method Room Air Room Air 06/10/23 17:00 06/10/23 18:00 Temperature Temperature Source Pulse Rate Respiratory Rate 16 Blood Pressure 141/92 H Blood Pressure Mean 108 Pulse Ox Oxygen Delivery Method Positive well nourished, well developed and obese General Appearance ED: well developed Nutritional Appearance: obese HEENT Reports normocephalic, head/scalp atraumatic and moist mucous membranes Eyes PERRL and EOMs intact bilaterally Neck no lymphadenopathy, supple and no JVD Chest Wall palpation of chest normal Resp normal respiratory effort and clear to auscultation bilaterally Cardio regular rate, regular rhythm and no murmurs GI normal to inspection, nondistended, normoactive bowel sounds and non-tender Palpation: soft Back/Spine no CVA tenderness and normal ROM Extremity normal to inspection Extremity Narrative: Left BKA General Extremety ED: Yes edema General Extremity: edema right lower extremity mild Neuro oriented x3, CN's II-XII intact bilaterally and no sensory deficits noted Neuro Narrative: NIH 0 Sensorium / Orientation: alert Sensory Exam: No sensory level loss detected Motor Exam: strength 5/5 throughout and general weakness Psych mental status grossly normal Mood & Affect: Negative for depressed or tearful Skin no rashes or lesions noted and no wounds MDM MDM MDM Narrative Medical decision making narrative: CT the brain showed no acute findings. Magn[place]en interpretation of the chest x-ray is cardiomegaly. White count 9.5 with a hemoglobin of 12.2. Platelet count is 227. BMP showed a BUN of 43 with a creatinine 1.59. This is near baseline for her. Glucose of 210. Troponin 54. This is a 7-hour troponin from the onset of her symptoms. This coupled with a nonischemic chest x-ray would suggest that this is not ACS related. Patient received her dose of morphine I also gave her Ativan. She was also given venlafaxine which she had not yet taken. Patient is up sitting in a chair. Not seeing anything focal on her evaluation. Talked with family advised with the urine showing 25-50 white cells but 0 bacteria negative nitrates she may in fact be colonized. I says she frequently grows E. coli but with small colony counts. I will send this for culture again but I do not feel strongly she needs to be treated she does not have fever does not have white count and she has no change in urinary symptoms. We discussed her chronic kidney disease and advised continued hydration which the family does state that she does drink good amounts of fluid. Advised that she would have any further symptoms she should return to the emergency. History & Record Review Discussion w/independent historian: Patient, Family and Significant other Lab Data Attestation: I reviewed the patient's lab results. Labs: Laboratory Results - last 24 hr 06/10/23 06/10/23 06/10/23 14:10 15:40 16:25 WBC 9.5 RBC 4.63 Hgb 12.2 Hct 38.6 MCV 83.4 MCH 26.3 L MCHC 31.6 L RDW Std Deviation 44.5 H RDW Coeff of Marco 14.7 H Plt Count 227 MPV 9.4 Immature Gran % (Auto) 0.300 Neut % (Auto) 71.9 H Lymph % (Auto) 20.1 [place] % (Auto) 6.9 Eos % (Auto) 0.5 Baso % (Auto) 0.3 Absolute Neuts (auto) 6.8 Absolute Lymphs (auto) 1.90 Nucleated RBC % 0 Sodium 137 Potassium 4.5 Chloride 105 Carbon Dioxide 24.0 Anion Gap 8 BUN 43 H Creatinine 1.59 H Estim Creat Clear Calc 31.65 Est GFR (MDRD) Af Amer 41 L Est GFR (MDRD) Non-Af 34 L BUN/Creatinine Ratio 27.0 H Glucose 210 H Calcium 8.8 Total Bilirubin 0.30 Direct Bilirubin 0.12 AST 14 L ALT 21 Alkaline Phosphatase 109 Troponin I High Sens 54 Total Protein 7.1 Albumin 3.1 L Globulin 4.0 Lipase < 10 L Urine Color Yellow Urine Clarity Sl. Cloudy Urine pH 6.0 Ur Specific [place] 1.010 Urine Protein 100 H Urine Glucose (UA) Normal Urine Ketones Negative Urine Occult Blood 25 H Urine Nitrite Negative Urine Bilirubin Negative Urine Urobilinogen Normal Ur Leukocyte Esterase 500 H Urine RBC 0-5 SEEN Urine WBC 25-50 SEEN Ur Squamous Epith Cells 0-5 SEEN Amorphous Sediment 1+ URATE Urine Bacteria 0 SEEN WBC Casts 0 SEEN Urine Mucus 0 SEEN POC Glucose 204 H Radiography Diagnostic Testing: Clinical Impression(s) from Imaging Studies Chest X-Ray 06/10/23 14:21 IMPRESSION: Prior CABG. Cardiomegaly. No acute abnormality is seen. Electronically Signed: Delvin Morton MD at 15:01 EST , Brain CT 06/10/23 14:24 IMPRESSION: Chronic involutional changes of the brain. Electronically Signed: Delvin Morton MD at 14:57 EST , EKG Initial EKG: Attestation: I personally reviewed and interpreted this EKG as follows: Comments: Normal sinus rhythm ventricular rate of 77 bpm Prior EKG tracings: available for review Prior: Unchanged Discharge Plan Triage Chief Complaint: Neuro S/Sx ED Provider: Claus Koenig Dx/Rx/DC Orders Clinical Impression: Anticoagulated, Essential hypertension, CAD (coronary artery disease), Weakness, PAD (peripheral artery disease) Instructions: ED Weakness (Uncertain Cause) Prescriptions: No Action Creon 24,000-76,000 -120,000 unit capsule,delayed release(DR/EC) 1 cap PO BID Rx Instructions: administer with meals and/or snacks Levemir FlexTouch U100 Insulin 100 unit/mL (3 mL) insulin pen 25 unit subcut BID oxybutynin chloride 10 mg tablet extended release 24hr 10 mg PO DAILY amlodipine 10 mg tablet 10 mg PO DAILY Qty: 90 3RF doxycycline hyclate 100 mg capsule 100 mg PO BID pravastatin 40 MG tablet 40 mg PO QHS Patient Comments: CHOLESTEROL allopurinol 100 MG tablet 100 mg PO DAILY levothyroxine 75 MCG tablet 75 mcg PO QHS Patient Comments: 1 (ONE) TABLET BEDTIME trazodone 100 MG tablet 100 mg PO 2200 metoclopramide HCl 10 MG tablet 10 mg PO Q8H PRN PRN (Reason: Nausea) Patient Comments: TAKE 1 (ONE) TABLET EVERY 8 HOURS NEEDED FOR NAUSE AND/OR CONSTIPATION linaclotide 72 mcg capsule 72 mcg PO DAILY PRN (Reason: STOOL) polyethylene glycol 3350 17 GM packet 17 gm PO BID Patient Comments: pt states takes only benefiber -or- miralex everyday as needed for constipation. sennosides-docusate sodium 1 TABLET tablet 1 tablet PO QHS esomeprazole magnesium 20 mg capsule,delayed release(DR/EC) 20 mg PO DAILY Patient Comments: TAKE 1 CAPSULE BY MOUTH EVERY DAY fexofenadine 180 mg Tablet 180 mg PO DAILY sucralfate 1 gram Tablet 1 g PO 4X/DAY venlafaxine 100 mg Tablet 100 mg PO BID nystatin 100,000 unit/gram Cream 1 applic TOPICAL DAILY ammonium lactate 12 % Cream 1 applic TOPICAL PRN PRN (Reason: Skin Cleansing) divalproex 125 mg Capsule, Delayed Rel Sprinkle 125 mg PO BID Januvia 25 mg Tablet 25 mg PO DAILY [place] 11-10 % Cream 1 applic TOPICAL PRN PRN (Reason: Pain) menthol-zinc oxide [Calmoseptine] 0.44-20.6 % Ointment 1 applic TOPICAL DAILY PRN (Reason: Skin Cleansing) Blue 7-7-1.5 gram Powder In Packet 1 ea PO BID tizanidine 4 MG tablet 4 mg PO 2200 calcium citrate 200 MG tablet 250 mg PO BID Rx Instructions: Hold it wile taking antibiotic Eliquis 5 mg tablet 5 mg PO BID Rx Instructions: 10 mg twice a day for the first week. Then 5 mg twice a day. insulin aspart U-100 [Novolog FlexPen U-100 Insulin] 100 unit/mL (3 mL) insulin pen 9 unit subcut BID 30 Days Qty: 0 0RF pregabalin 75 mg Capsule 75 mg PO DAILY 14 Days Qty: 14 0RF clopidogrel 75 mg tablet 75 mg PO DAILY Qty: 90 3RF Patient Comments: ask about stopping morphine 10 mg/5 mL solution 5 mg PO DAILY 5 Days Qty: 12.5 0RF isosorbide mononitrate 60 mg tablet extended release 24 hr 60 mg PO TID 90 Days Qty: 270 3RF carvedilol 25 mg tablet 25 mg PO BID Qty: 180 3RF Rx Instructions: TAKE 1 TABLET BY MOUTH TWICE A DAY hydralazine 25 mg tablet 25 mg PO TID Qty: 90 11RF nitroglycerin 400 mcg/spray spray,non-aerosol 0.4 mg SL TID PRN PRN (Reason: chest pain) Qty: 4.9 3RF Primary Care Provider: Con Johnson Referrals: Con Johnson MD [Primary Care Provider] - 3-5 Days Disposition Disposition: Home, Self Care Discharge Date/Time: 06/10/23 18:21 Capacity Legal Diamond Assorter Reflex Medical hold order details:: IF a medical hold is selected below, a suggested order for a MEDICAL HOLD will reflex upon signing the document. Next of kin: [place] law dictates a PRIORITY LIST for identifying legal decision-maker/legal next of kin in the following order (LNOK): 1st: The patient?s legal guardian, if any 2nd: The patient's spouse (if status is questionable, consult Risk Management) 3rd: The patient?s adult child(sera) (majority, if multiple children) 4th: The patient?s parents 5th: The patient?s adult siblings (majority, if multiple children siblings)
--- NOTE | 2023-06-10 14:21 | EKG12_ITS ---
Test Reason : CP Blood Pressure : / mmHG Vent. Rate : 077 BPM Atrial Rate : 077 BPM P-R Int : 202 ms QRS Dur : 090 ms QT Int : 390 ms P-R-T Axes : 066 -27 064 degrees QTc Int : 441 ms Normal sinus rhythm Normal ECG Confirmed by HANNA ANAYA, HECTOR ([id number]), research editor CAMERON CALLES ([id number]) on 06/12/2023 9:17:41 AM Referred By: GRICEL/VAHE Confirmed By:HECTOR FERREIRA MD
--- NOTE | 2023-06-10 14:21 | RAD_ITS ---
STUDY: X-RAY CHEST REASON FOR EXAM: Female, 77 years old. Chest pain TECHNIQUE: Single AP portable view of the chest. COMPARISON: Comparison is made with prior study December 26, 2021. FINDINGS: EKG electrodes are seen. The lungs are clear and expanded. There is no demonstrated pleural abnormality. Sternal cerclage wires and vascular clips are present from a prior sternotomy and coronary artery bypass graft procedure (CABG). Mild cardiomegaly. Normal mediastinum and oniel. Normal visualized pulmonary arteries. There is atherosclerotic calcification of the aortic arch with tortuosity. Normal visualized thoracic spine. There is degenerative osteoarthritis of the bilateral shoulders. There is no demonstrated abnormality of the visualized soft tissue structures of the upper abdomen. RAD/Chest 1 View (Portable) IMPRESSION: Prior CABG. Cardiomegaly. No acute abnormality is seen. Electronically Signed: Delvin Morton MD at 15:01 EST ,
--- NOTE | 2023-06-10 14:24 | CT_ITS ---
STUDY: CT BRAIN WITHOUT CONTRAST REASON FOR EXAM: Female, 77 years old. Aphasia. RADIATION DOSAGE (If Supplied By Facility): CTDIvol = ( 44.99 ) mGy, DLP = ( 846.73 ) mGycm TECHNIQUE: Transaxial CT imaging of the brain was performed without administration of intravenous contrast material. Individualized dose optimization techniques were used for this CT. COMPARISON: Comparison is made with prior study of July 29, 2021. FINDINGS: Normal soft tissue structures. Normal calvarium. There is mild cerebral atrophy with widening of the extra-axial spaces and ventricular dilatation. There are areas of decreased attenuation within the white matter tracts of the supratentorial brain, consistent with microvascular disease changes. There are small punctate calcifications of the basal ganglia which are seen in the aging brain as a normal variant. Normal brainstem. Normal cerebellum. There is no intracranial hemorrhage. There are no findings of an acute ischemic infarction. Atherosclerotic plaque formation of the vertebral arteries and cavernous portions of the internal carotid arteries bilaterally. Normal visualized paranasal sinuses. CT/Brain/Head without Contrast IMPRESSION: Chronic involutional changes of the brain. Electronically Signed: Delvin Morton MD at 14:57 EST ,
[2023-06-10] MEDS: LORazepam 2 MG/ML Syringe 0.5 MG IV (14:36)
[2023-06-10 14:38] VITALS: BMI 30.9
[2023-06-10 14:39] VITALS: BMI 30.9
[2023-06-10 14:41] LABS: Absolute Neutrophil Count 6.8 X10^3/uL (2.0-7.7); Basophil# 0.03 X10^3/uL; Basophil% 0.3 % (0-1); Eosinophil# 0.05 X10^3/uL; Eosinophils% 0.5 % (0-5); Hematocrit 38.6 % (37-47); Hemoglobin 12.2 g/dL (12.0-15.0); Lymphocyte % 20.1 % (19-41); Mean Corp Hgb Conc 31.6 g/dL (32-36); Mean Corpuscular Hgb 26.3 pg (27.0-32.0); Mean Corpuscular Volume 83.4 fL (81-99); Mean Platelet Vol. 9.4 fl (6.2-12.0); Monocyte# 0.65 X10^3/uL; Monocyte% 6.9 % (0-10); NRBC Flagged by Analyzer 0 % (0-5); Neutrophil % 71.9 % (47-70); Platelet Count 227 K/mm3 (150-450); RBC Distribution Width CV 14.7 % (11.6-14.6); RBC Distribution Width SD 44.5 fl (35.1-43.9); Red Blood Count 4.63 M/mm3 (4.2-5.4); White Blood Count 9.5 K/mm3 (4.4-11.0)
[2023-06-10 14:59] LABS: AST(SGOT) 14 U/L (15-37); Alanine Aminotransfer ALT/SGPT 21 U/L (13-56); Albumin, Serum 3.1 g/dL (3.2-5.0); Alkaline Phosphatase 109 U/L (45-117); Anion Gap 8 (5-15); BUN 43 mg/dL (7-18); Bilirubin, Direct 0.12 mg/dL (0.00-0.30); Calcium,Total 8.8 mg/dL (8.5-10.1); Chloride 105 mmol/L (98-107); Creatinine, Serum 1.59 mg/dL (0.55-1.02); EST Glomerular Filtration Rate 34 mL/min (>60); Est Glom Filt Rate - Afr Amer 41 mL/min (>60); Estimated Creatinine Clearance 31.65 ml/min; Glucose 210 mg/dL (74-106); Lipase < 10 U/L (13-75); Potassium 4.5 mmol/L (3.5-5.1); Protein, Total 7.1 g/dL (6.4-8.2); Sodium Level 137 mmol/L (136-145); Troponin-I HS 54 pg/mL (3.0-54.0)
[2023-06-10 15:00] VITALS: RESP 16
[2023-06-10] MEDS: morphine (oral solution) 10MG/0.5ML Syringe 5 MG PO (15:02)
[2023-06-10 15:50] LABS: Bacteria 0 SEEN /hpf (None Seen); Mucous, Urine 0 SEEN /hpf (<or=2+)
[2023-06-10 16:00] VITALS: BP 145/109; PULSE 73; RESP 16; O2SAT 95
[2023-06-10 16:12] LABS: Color, Urine Yellow (Yellow); Glucose, Dipstick Normal (Normal); Ketone-Dipstick Negative (Negative); Leukocyte Esterase-Dipstick 500 /ul (Negative); Nitrite-Dipstick Negative (Negative); Occult Blood-Urine 25 /ul (Negative); Protein-Dipstick 100 mg/dl (Negative); Urine Bilirubin Dipstick Negative (Negative); Urine Clarity Sl. Cloudy (Clear); Urine Urobilinogen Normal (Normal)
--- NOTE | 2023-06-10 16:34 | ED.RN ---
pt asleep at this time and o2 sats decreased to 88%, 2L o2 via nc placed on pt.
[2023-06-10 16:42] LABS: Bedside Glucose 204 mg/dL (74-106)
[2023-06-10 17:00] VITALS: RESP 16
[2023-06-10 17:00] LABS: Red Blood Cells-Urine 0-5 SEEN /hpf (0-5); Squamous Epithelial Cells - UA 0-5 SEEN /hpf (5-10); White Blood Cells 25-50 SEEN /hpf (0-5); White Cell Cast 0 SEEN /lpf (None Seen)
[2023-06-10 17:01] LABS: Amorphous Sediment 1+ URATE
[2023-06-10 18:00] VITALS: BP 141/92
== END 2023-06-10 18:21 | disposition home or self-care (01) ==
PROVIDERS: Emergency Provider Emergency Medicine; PCP Family Medicine; Visit Provider Emergency Medicine
DX: R53.1 Weakness (principal); E11.51 Type 2 diabetes mellitus with diabetic peripheral angiopathy without gangrene; Z89.512 Acquired absence of left leg below knee; E11.22 Type 2 diabetes mellitus with diabetic chronic kidney disease; Z79.4 Long term (current) use of insulin; I12.9 Hypertensive chronic kidney disease with stage 1 through stage 4 chronic kidney disease, or unspecified chronic kidney disease; I25.10 Atherosclerotic heart disease of native coronary artery without angina pectoris; E03.9 Hypothyroidism, unspecified; E78.00 Pure hypercholesterolemia, unspecified; E66.9 Obesity, unspecified; Z79.01 Long term (current) use of anticoagulants; Z79.02 Long term (current) use of antithrombotics/antiplatelets; Z79.899 Other long term (current) drug therapy; Z79.890 Hormone replacement therapy; Z95.1 Presence of aortocoronary bypass graft; Z86.73 Personal history of transient ischemic attack (TIA), and cerebral infarction without residual deficits
CPT/HCPCS: 70450; 71045; 80048; 80076; 81001; 82962; 83690; 84484; 85025; 87077; 87086; 87088; 87186; 93005; 96374; 99285; A4216

== ENCOUNTER 2023-06-12 07:22 | Emergency (ER) | payer MEDICARE, OTHER, SELFPAY ==
[2023-06-12 07:23] VITALS: PULSE 77; RESP 15; TEMP 36.6; O2SAT 95; BMI 30.8
[2023-06-12 07:27] VITALS: BP 204/78
--- NOTE | 2023-06-12 07:33 | EKG12_ITS ---
Test Reason : LOW BS Blood Pressure : / mmHG Vent. Rate : 074 BPM Atrial Rate : 074 BPM P-R Int : 192 ms QRS Dur : 092 ms QT Int : 402 ms P-R-T Axes : 049 -27 062 degrees QTc Int : 446 ms Sinus rhythm with occasional Premature ventricular complexes Nonspecific ST and T wave abnormality Abnormal ECG Confirmed by HANNA ANAYA, HECTOR ([id number]), market editor CAMERON CALLES ([id number]) on 06/14/2023 7:58:28 AM Referred By: Confirmed By:HECTOR FERREIRA MD
--- NOTE | 2023-06-12 07:35 | EDS_ITS ---
HPI History of Present Illness Chief Complaint: Hypoglycemia Detail of Chief Complaint: Weakness and low blood sugar Narrative Narrative: Patient presents to the emergency department with complaint of some confusion this morning and weakness and low blood sugar. Patient presents from home via EMS. Her called the squad because she had fallen asleep in a chair and she started to call for him. Her speech seemed slurred a little bit and patient states that she could not yell very loudly. EMS presented and they checked her blood sugar and it was 62. They gave her glucose. Currently she feels improved but may have just a little fatigue. Patient was seen in the emergency department for an episode of some generalized weakness and may be some confusion similarly 2 days ago. She had a significant workup at that time. Patient has not taken her medications this morning. She did take her insulin last night and she took 14 units of short acting and 30 units of long-acting which she normally does. Takes the same dose in the morning also but has not this morning. [facility] Medical History Acquired equinus deformity of left foot Acute hyperkalemia Amput foot, unilat-complicated Anemia Anxiety Atherosclerotic heart disease of [place] coronary artery without angina pectoris Back pain Blackout Bladder disease Cardiology follow-up encounter Carpal tunnel syndrome Charcot foot due to diabetes mellitus Charcot's joint of left foot Chest pain Delayed wound healing Dietary restriction DVT (deep venous thrombosis) Equinus contracture of left ankle Essential hypertension Gastric reflux GERD (gastroesophageal reflux disease) GI bleed Gout High cholesterol History of blood clots History of Clostridium difficile infection History of CVA (cerebrovascular accident) History of echocardiogram History of edema History of heart attack History of IBS History of non-ST elevation myocardial infarction (NSTEMI) (08/2020) History of renal disease History of stress test Humerus fracture Hyperlipidemia Hypothyroidism Insulin dependent diabetes mellitus Iron deficiency anemia Left-sided extracranial carotid artery stenosis Migraines MRSA infection Non-pressure chronic ulcer of left ankle with necrosis of muscle Non-pressure chronic ulcer of other part of left foot with fat layer exposed Non-pressure chronic ulcer of other part of left foot with fat layer exposed 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 evidence of necrosis Non-smoker Obesity Open wound Opioid dependence Osteoporosis Other acute postprocedural pain PAD (peripheral artery disease) Peripheral arterial occlusive disease Post-menopausal Restless legs Shortness of breath on exertion Sleep apnea Stenosis of right subclavian artery Stroke/cerebrovascular accident Thyroid disease Type 2 diabetes mellitus with diabetic polyneuropathy Type 2 diabetes mellitus with diabetic polyneuropathy Type 2 diabetes mellitus with foot ulcer Ulcer of abdomen wall with fat layer exposed Ulcer of left foot with fat layer exposed Uses wheelchair Vitamin D deficiency Wears dentures Wears glasses Home Medications pravastatin 40 mg tablet 40 mg PO QHS CHOLESTEROL 03/10/17 [History Last Taken 12/07/20] allopurinol 100 mg tablet 100 mg PO DAILY GOUT 03/17/20 [History Last Taken 12/08/20] xpumsf-ohmiudtl-xygzqfu 24,000-76,000-120,000 unit capsule,delayed rel (Creon) 1 cap PO BID IBS 04/05/20 [History Last Taken 12/08/20] levothyroxine 75 mcg tablet 75 mcg PO QHS THYROID 08/17/20 [History Last Taken 12/07/20] metoclopramide HCl 10 mg tablet 10 mg PO Q8H PRN PRN Nausea 08/17/20 [History Last Taken 12/07/20] trazodone 100 mg tablet 100 mg PO 2200 SLEEP 08/17/20 [History Last Taken 12/07/20] polyethylene glycol 3350 17 gram oral powder packet 17 gm PO BID constipation 09/19/20 [History Last Taken 12/08/20] sennosides 8.6 mg-docusate sodium 50 mg tablet 1 tablet PO QHS constipation 09/19/20 [History Last Taken 12/07/20] esomeprazole magnesium 20 mg capsule,delayed release 20 mg PO DAILY GERD 12/08/20 [History Last Taken 09/03/22] fexofenadine 180 mg tablet 180 mg PO DAILY ALLERGIES 12/08/20 [History Last Taken 12/08/20] insulin detemir U-100 100 unit/mL (3 mL) subcutaneous pen (Levemir FlexTouch U- 100 Insulin) 25 unit subcut BID DIABETES 06/12/22 [History Last Taken Unknown] linaclotide 72 mcg capsule 72 mcg PO DAILY PRN STOOL 06/12/22 [History Last Taken Unknown] clopidogrel 75 mg tablet 75 mg PO DAILY CAD #90 tabs 08/03/22 [Rx Last Taken 08/31/22] ammonium lactate 12 % topical cream 1 applic topical PRN PRN Skin Cleansing 08/20/22 [History Last Taken Unknown] apixaban 5 mg tablet (Eliquis) 5 mg PO BID BLOOD THINNER 08/20/22 [History Last Taken 08/31/22] arginine 7 gram-glutamine 7 gram-calcium HMB 1.5 gram oral powder pack (Blue) 1 ea PO BID SUPPLEMENT 08/20/22 [History Last Taken Unknown] calcium citrate 200 mg (950 mg) tablet 250 mg PO BID supplement 08/20/22 [History Last Taken Unknown] camphor-menthol 11 %-10 % topical cream ([place]) 1 applic topical PRN PRN Pain 08/20/22 [History Last Taken Unknown] divalproex 125 mg capsule,delayed release sprinkle 125 mg PO BID MOOD 08/20/22 [History Last Taken 09/03/22] menthol 0.44 %-zinc oxide 20.6 % topical ointment (Calmoseptine) 1 applic topical DAILY PRN Skin Cleansing 08/20/22 [History Last Taken Unknown] nystatin 100,000 unit/gram topical cream 1 applic topical DAILY SKIN 08/20/22 [History Last Taken Unknown] sitagliptin phosphate 25 mg tablet (Januvia) 25 mg PO DAILY DIABETES 08/20/22 [History Last Taken Unknown] sucralfate 1 gram tablet 1 g PO 4X/DAY DIARRHEA 08/20/22 [History Last Taken Unknown] tizanidine 4 mg tablet 4 mg PO 2200 PAIN 08/20/22 [History Last Taken Unknown] venlafaxine 100 mg tablet 100 mg PO BID DEPRESSION 08/20/22 [History Last Taken 09/03/22] insulin aspart U-100 100 unit/mL (3 mL) subcutaneous pen (Novolog FlexPen U-100 Insulin aspart) 9 unit (0.09 mL) subcut BID DIABETES 30 days #0 mL 09/07/22 [Rx Last Taken Unknown] morphine 10 mg/5 mL oral solution 5 mg (2.5 mL) PO DAILY PAIN 5 days #12.5 mL 09/07/22 [Rx Last Taken Unknown] pregabalin 75 mg capsule 75 mg PO DAILY 14 days #14 caps 09/07/22 [Rx Last Taken Unknown] isosorbide mononitrate 60 mg tablet,extended release 24 hr 60 mg PO TID HEART 90 days #270 tabs 09/24/22 [Rx Last Taken Unknown] oxybutynin chloride 10 mg tablet,extended release 24 hr 10 mg PO DAILY 10/02/22 [History Last Taken Unknown] amlodipine 10 mg tablet 10 mg PO DAILY HYPERTENSION #90 tabs 12/18/22 [Rx Last Taken Unknown] doxycycline hyclate 100 mg capsule 100 mg PO BID 12/27/22 [History Last Taken Unknown] carvedilol 25 mg tablet 25 mg PO BID BP #180 tabs 12/28/22 [Rx Last Taken Unknown] hydralazine 25 mg tablet 25 mg PO TID #90 tabs 03/25/23 [Rx Last Taken Unknown] nitroglycerin 400 mcg/spray translingual 0.4 mg sublingual TID PRN PRN chest pain #4.9 grams 05/06/23 [Rx Last Taken Unknown] cephalexin 500 mg capsule 500 mg PO Q6 #28 CAPSULES 06/12/23 [Rx Last Taken Unknown] Allergy/AdvReac Type Severity Reaction Status Date / Time atorvastatin calcium Allergy Unknown Verified 06/12/23 07:27 [From Lipitor] bupropion HCl Allergy Unknown Verified 06/12/23 07:27 [From Wellbutrin] mannitol [From Reclast] Allergy joint Verified 06/12/23 07:27 pain, unable to breathe, unable to walk propoxyphene napsylate Allergy Unknown Verified 06/12/23 07:27 [From Darvocet-N 100] Quinolones Allergy Unknown Verified 06/12/23 07:27 Tetanus Vaccines and Toxoid Allergy Chest Verified 06/12/23 07:27 [Tetanus Vaccines & Toxoid] tightness zoledronic acid Allergy joint Verified 06/12/23 07:27 [From Reclast] pain,unable to breathe, unaable to walk gemfibrozil AdvReac Intermediate Unknown Verified 06/12/23 07:27 amoxicillin AdvReac Mild Rash Verified 06/12/23 07:27 NSAIDS (Non-Steroidal AdvReac Other Verified 06/12/23 07:27 Anti-Inflamma Family History Mother , age 75 Cancer CVA (cerebral vascular accident) CAD (coronary artery disease) Father CAD (coronary artery disease) History of coronary artery bypass graft Sister CAD (coronary artery disease) Multiple sclerosis Other Anxiety Bleeding disorder Depression Diabetes Heart disease High cholesterol Hypertension Surgical History H/O coronary artery bypass surgery (09/09/14) History of Achilles tendon repair History of angioplasty of peripheral vessel (12/2014) History of appendectomy History of cholecystectomy History of [place] amputation of left foot History of coronary artery stent placement (09/22/20) History of excision of lesion History of foot surgery History of gastric bypass History of neck surgery History of ventral hernia repair Hx of amputation of foot Hx of ventral hernia repair Social History Smoking Status: Never smoker alcohol intake: never substance use type: does not use caffeine: Yes Type: coffee what type of physical activity do you participate in: none seatbelt use: sometimes do you feel safe at home: Yes additional social history: DOES NOT TAKE ASPIRIN DOES TAKE IBUPROFEN NEEDED ROS ROS ED ROS Narrative Hypoglycemia Review of Systems ROS Unobtainable: other Constitutional Constitutional ED: Reports lethargy; Denies chills, fever(s), sweats or weight loss Eyes Eyes: Denies blurry vision, change in vision or diplopia ENT ENT ED: Denies rhinorrhea or sore throat Cardiovascular Cardiovascular: Denies chest pain, orthopnea or racing heartbeat Respiratory/Chest Respiratory/Chest: Denies cough, dyspnea, dyspnea on exertion, orthopnea or sputum Gastrointestinal Gastrointestinal: Denies abdominal pain, diarrhea, nausea or vomiting Genitourinary Genitourinary ED: Denies dysuria, hematuria or urinary frequency Musculoskeletal Musculoskeletal: Denies arthralgias, back pain, myalgias or neck pain Integumentary Denies abscess, Abrasions or rash Neurologic Neurologic: Reports weakness and other Details: Slurred speech ; Denies headache(s) Psychiatric Psychiatric: Denies anxiety, depression or suicidal thoughts Endocrine Endocrinology: Denies polydipsia, polyphagia or polyuria Hematologic/Lymphatic Hematologic/Lymphatic: Denies easy bleeding, easy bruising or lymphadenopathy Allergic/Immunologic Allergic/Immunologic ED: Denies mouth swelling, tongue swelling or urticaria EXAM Physical Exam Const Vital Signs: 06/12/23 07:23 06/12/23 07:27 06/12/23 07:28 Temperature 97.9 F Temperature Source Temporal Pulse Rate 77 Respiratory Rate 15 Respiratory Effort Normal Non-Labored Respiratory Pattern Normal Blood Pressure 204/78 H Blood Pressure Mean 120 Pulse Ox 95 Oxygen Delivery Method Room Air 06/12/23 10:58 06/12/23 10:59 Temperature Temperature Source Pulse Rate 77 Respiratory Rate 13 Respiratory Effort Respiratory Pattern Blood Pressure 204/75 H 178/91 H Blood Pressure Mean 118 120 Pulse Ox 99 Oxygen Delivery Method Room Air Positive well nourished and well developed General Appearance ED: well developed and NAD HEENT Reports TM's clear and moist mucous membranes normocephalic and atraumatic; Negative for trauma or tenderness Tympanic Membrane ED: Yes TM's clear Eyes PERRL and EOMs intact bilaterally General Eye ED: Negative for pale conjunctiva or scleral icterus Neck no lymphadenopathy, supple and no JVD General: Negative for tenderness Chest Wall inspection of chest normal and palpation of chest normal Chest: Negative for tenderness Resp normal respiratory effort and clear to auscultation bilaterally Effort and Inspection: Negative for respiratory distress or pain with movement Auscultation: Negative for rhonchi, wheezes or diminished lung sounds Cardio regular rate, regular rhythm, S1 normal heart sound, S2 normal heart sound and no murmurs Peripheral Pulses: pulses 2+ throughout GI normal to inspection, nondistended, normoactive bowel sounds, soft to palpation, non-tender, non-distended and no masses Back/Spine no CVA tenderness and no thoracic nor lumbar tenderness Extremity Extremity Narrative: Left BKA noted. Patient also noted on the right foot to have all her toes amputated. General Extremety ED: Negative for edema General Extremity: Negative for edema Neuro oriented x3, CN's II-XII intact bilaterally, no sensory deficits noted and gait normal Sensorium / Orientation: awake, alert, oriented to person, oriented to place and oriented to time Motor Exam: strength 5/5 throughout and strength abnormal Psych mental status grossly normal Skin no rashes or lesions noted and no wounds MDM MDM MDM Narrative Medical decision making narrative: Patient presents with low blood sugar and some confusion this morning. Seen for similar type event 2 days ago in the ER and had significant workup at that time. Patient feeling improved after given glucose. Patient was given a meal tray. CBC with differential obtained showed white count 9.4 with hemoglobin 13 and platelet count of 217. Chemistries unremarkable. BUN 41 and creatinine 1.71. EKG obtained arrival shows sinus rhythm with ventricular rate of [address] changes. Urinalysis was positive for 500 leukocyte esterase and 50-100 WBCs. I did review the urine culture from 2 days ago and it was positive for gram-negative bacteria. Greater than 100,000 colony-forming units and sensitive to cephalosporins. I gave patient a gram of Rocephin IV and will start on Keflex. I did give her her blood pressure medications that she normally takes this morning with improvement in her blood pressure. Clinically she looks well and would like to go home and feels well. I discussed case with Dr. Root who is covering for Dr. Con Johnson. He did not want to make any c hanges to her insulin at this time and stated that their office can get her in to get her seen tomorrow. Patient advised to return if condition should worsen anyway. Lab Data Attestation: I reviewed the patient's lab results. Labs: Laboratory Results - last 24 hr 06/12/23 06/12/23 06/12/23 07:45 07:49 08:31 WBC 9.4 RBC 5.05 Hgb 13.2 Hct 42.5 MCV 84.2 MCH 26.1 L MCHC 31.1 L RDW Std Deviation 45.2 H RDW Coeff of Marco 14.8 H Plt Count 217 MPV 9.7 Immature Gran % (Auto) 0.300 Neut % (Auto) 60.5 Lymph % (Auto) 28.2 [place] % (Auto) 8.7 Eos % (Auto) 1.9 Baso % (Auto) 0.4 Absolute Neuts (auto) 5.7 Absolute Lymphs (auto) 2.65 Nucleated RBC % 0 Sodium 141 Potassium 4.1 Chloride 109 H Carbon Dioxide 25.0 Anion Gap 7 BUN 41 H Creatinine 1.71 H Estim Creat Clear Calc 29.36 Est GFR (MDRD) Af Amer 37 L Est GFR (MDRD) Non-Af 31 L BUN/Creatinine Ratio 24.0 H Glucose 119 H Calcium 9.4 Total Bilirubin 0.20 AST 20 ALT 20 Alkaline Phosphatase 112 Total Protein 7.5 Albumin 3.3 Globulin 4.2 Albumin/Globulin Ratio 0.8 L Urine Color Yellow Urine Clarity Sl. Cloudy Urine pH 6.5 Ur Specific [place] 1.010 Urine Protein 100 H Urine Glucose (UA) Normal Urine Ketones Negative Urine Occult Blood 50 H Urine Nitrite Negative Urine Bilirubin Negative Urine Urobilinogen Normal Ur Leukocyte Esterase 500 H Urine RBC 0 SEEN Urine WBC 50-100 SEEN Ur Squamous Epith Cells 0-5 SEEN Urine Bacteria 0 SEEN Urine Mucus 0 SEEN POC Glucose 148 H EKG Initial EKG: Attestation: I personally reviewed and interpreted this EKG as follows: Comments: Sinus rhythm with rate of [address] changes and occasional PVCs Discharge Plan Triage Chief Complaint: Hypoglycemia ED Provider: Tahira Cuenac Dx/Rx/DC Orders Clinical Impression: Hypoglycemia, Acute UTI, Hypertension Instructions: ED Hypertension, Established, ED Diabetic Insulin Reaction, ED Cystitis Female Adult Prescriptions: New cephalexin [cephalexin] 500 mg capsule 500 mg PO Q6 Qty: 28 0RF No Action Creon 24,000-76,000 -120,000 unit capsule,delayed release(DR/EC) 1 cap PO BID Rx Instructions: administer with meals and/or snacks Levemir FlexTouch U100 Insulin 100 unit/mL (3 mL) insulin pen 25 unit subcut BID oxybutynin chloride 10 mg tablet extended release 24hr 10 mg PO DAILY amlodipine 10 mg tablet 10 mg PO DAILY Qty: 90 3RF doxycycline hyclate 100 mg capsule 100 mg PO BID pravastatin 40 MG tablet 40 mg PO QHS Patient Comments: CHOLESTEROL allopurinol 100 MG tablet 100 mg PO DAILY levothyroxine 75 MCG tablet 75 mcg PO QHS Patient Comments: 1 (ONE) TABLET BEDTIME trazodone 100 MG tablet 100 mg PO 2200 metoclopramide HCl 10 MG tablet 10 mg PO Q8H PRN PRN (Reason: Nausea) Patient Comments: TAKE 1 (ONE) TABLET EVERY 8 HOURS NEEDED FOR NAUSE AND/OR CONSTIPATION linaclotide 72 mcg capsule 72 mcg PO DAILY PRN (Reason: STOOL) polyethylene glycol 3350 17 GM packet 17 gm PO BID Patient Comments: pt states takes only benefiber -or- miralex everyday as needed for constipation. sennosides-docusate sodium 1 TABLET tablet 1 tablet PO QHS esomeprazole magnesium 20 mg capsule,delayed release(DR/EC) 20 mg PO DAILY Patient Comments: TAKE 1 CAPSULE BY MOUTH EVERY DAY fexofenadine 180 mg Tablet 180 mg PO DAILY sucralfate 1 gram Tablet 1 g PO 4X/DAY venlafaxine 100 mg Tablet 100 mg PO BID nystatin 100,000 unit/gram Cream 1 applic TOPICAL DAILY ammonium lactate 12 % Cream 1 applic TOPICAL PRN PRN (Reason: Skin Cleansing) divalproex 125 mg Capsule, Delayed Rel Sprinkle 125 mg PO BID Januvia 25 mg Tablet 25 mg PO DAILY [place] 11-10 % Cream 1 applic TOPICAL PRN PRN (Reason: Pain) menthol-zinc oxide [Calmoseptine] 0.44-20.6 % Ointment 1 applic TOPICAL DAILY PRN (Reason: Skin Cleansing) Blue 7-7-1.5 gram Powder In Packet 1 ea PO BID tizanidine 4 MG tablet 4 mg PO 2200 calcium citrate 200 MG tablet 250 mg PO BID Rx Instructions: Hold it wile taking antibiotic Eliquis 5 mg tablet 5 mg PO BID Rx Instructions: 10 mg twice a day for the first week. Then 5 mg twice a day. insulin aspart U-100 [Novolog FlexPen U-100 Insulin] 100 unit/mL (3 mL) insulin pen 9 unit subcut BID 30 Days Qty: 0 0RF pregabalin 75 mg Capsule 75 mg PO DAILY 14 Days Qty: 14 0RF clopidogrel 75 mg tablet 75 mg PO DAILY Qty: 90 3RF Patient Comments: ask about stopping morphine 10 mg/5 mL solution 5 mg PO DAILY 5 Days Qty: 12.5 0RF isosorbide mononitrate 60 mg tablet extended release 24 hr 60 mg PO TID 90 Days Qty: 270 3RF carvedilol 25 mg tablet 25 mg PO BID Qty: 180 3RF Rx Instructions: TAKE 1 TABLET BY MOUTH TWICE A DAY hydralazine 25 mg tablet 25 mg PO TID Qty: 90 11RF nitroglycerin 400 mcg/spray spray,non-aerosol 0.4 mg SL TID PRN PRN (Reason: chest pain) Qty: 4.9 3RF Primary Care Provider: Con Johnson Referrals: Con Johnson MD [Primary Care Provider] - 1 Day Disposition Disposition: Home, Self Care Discharge Date/Time: 06/12/23 11:06 Capacity Legal Addiction Psychiatrist Reflex Medical hold order details:: IF a medical hold is selected below, a suggested order for a MEDICAL HOLD will reflex upon signing the document. Next of kin: [place] law dictates a PRIORITY LIST for identifying legal decision-maker/legal next of kin in the following order (LNOK): 1st: The patient?s legal guardian, if any 2nd: The patient's spouse (if status is questionable, consult Risk Management) 3rd: The patient?s adult child(sera) (majority, if multiple children) 4th: The patient?s parents 5th: The patient?s adult siblings (majority, if multiple children siblings)
--- OUTSIDE RECORDS SUMMARY | 2023-06-12 07:51 | XMS RPT_ITS | CCD ---
Author Name Unknown Address [facility] [place] [address] Organization [facility] Results Test Name Value Interpretation Reference Range Facil ity Clinical Note 12-25-2021 Note Date & Type Note Facility 12-25-2021 Note History & Physical R eviewed: I have reviewed the History and Physical dated: 19-Feb-2022 History and Physical reviewed and relevant findings noted. Patient examined to review pertinent physical findings.: No significant changes Home Medications Reviewed: no changes noted Allergies Reviewed: no changes noted ERAS (Enhanced Recovery After Surgery): ERAS Patient: no Consent: COVID-19 Consent: COVID-19 Risk ConsentSurgeon has reviewed cruz risks related to the risk of roderick COVID-19 and if they contract COVID-19 what the risks are. Electronic Signatures: Kevin Brock) (Signed 25-Dec-2021 07:34) Authored: History & Physical Reviewed, ERAS, Consent, Note Completion Last Updated: 25-Dec-2021 07:34 by Kevin Brock) [facility] Summary Purpose Family History No Family History Records Found Advance Directives No Advanced Directives Records Found Additional Source Comments INFORMATION SOURCE (unrecogn ized section and content) FOR RECORDS PERTAINING TO PATIENTS WHO ARE OR HAVE BEEN ENROLLED IN A CHEMICAL DEPENDENCY/SUBSTANCEABUSE PROGRAM, SOME INFORMATION MAY BE OMITTED. This clinical summary was aggregated from multiple sources. Caution should be exercised in using it in the provision of clinical care. This summary normalizes information from multiple sources, and as a consequence, information in this document may materially change the coding, format and clinical context of patient data. In addition, data may be omitted in some cases. CLINICAL DECISIONS SHOULD BE BASED ON THE PRIMARY CLINICAL RECORDS. [facility]. provides no warranty or guarantee of the accuracy or completeness of information in this document.
[2023-06-12 07:55] LABS: Bacteria 0 SEEN /hpf (None Seen); Mucous, Urine 0 SEEN /hpf (<or=2+); Red Blood Cells-Urine 0 SEEN /hpf (0-5)
[2023-06-12 08:06] LABS: Absolute Lymphocyte Count 2.65 X10^3/uL (0.83-4.51); Absolute Neutrophil Count 5.7 X10^3/uL (2.0-7.7); Basophil# 0.04 X10^3/uL; Basophil% 0.4 % (0-1); Eosinophil# 0.18 X10^3/uL; Eosinophils% 1.9 % (0-5); Hematocrit 42.5 % (37-47); Hemoglobin 13.2 g/dL (12.0-15.0); Lymphocyte # 2.65 X10^3/ul (0.83-4.51); Lymphocyte % 28.2 % (19-41); Mean Corp Hgb Conc 31.1 g/dL (32-36); Mean Corpuscular Hgb 26.1 pg (27.0-32.0); Mean Corpuscular Volume 84.2 fL (81-99); Mean Platelet Vol. 9.7 fl (6.2-12.0); Monocyte# 0.82 X10^3/uL; Monocyte% 8.7 % (0-10); NRBC Flagged by Analyzer 0 % (0-5); Neutrophil # 5.67 X10^3/uL (2.7-7.7); Neutrophil % 60.5 % (47-70); Platelet Count 217 K/mm3 (150-450); RBC Distribution Width CV 14.8 % (11.6-14.6); RBC Distribution Width SD 45.2 fl (35.1-43.9); Red Blood Count 5.05 M/mm3 (4.2-5.4); White Blood Count 9.4 K/mm3 (4.4-11.0)
[2023-06-12 08:08] LABS: Color, Urine Yellow (Yellow); Glucose, Dipstick Normal (Normal); Ketone-Dipstick Negative (Negative); Leukocyte Esterase-Dipstick 500 /ul (Negative); Nitrite-Dipstick Negative (Negative); Occult Blood-Urine 50 /ul (Negative); Protein-Dipstick 100 mg/dl (Negative); Urine Bilirubin Dipstick Negative (Negative); Urine Clarity Sl. Cloudy (Clear); Urine Urobilinogen Normal (Normal); Urine pH 6.5 (5.0 - 8.0)
[2023-06-12 08:18] LABS: Squamous Epithelial Cells - UA 0-5 SEEN /hpf (5-10); White Blood Cells 50-100 SEEN /hpf (0-5)
[2023-06-12 08:27] LABS: ALB/GLOB Ratio 0.8 RATIO (0.9-2.4); AST(SGOT) 20 U/L (15-37); Alanine Aminotransfer ALT/SGPT 20 U/L (13-56); Albumin, Serum 3.3 g/dL (3.2-5.0); Alkaline Phosphatase 112 U/L (45-117); Anion Gap 7 (5-15); BUN 41 mg/dL (7-18); Calcium,Total 9.4 mg/dL (8.5-10.1); Chloride 109 mmol/L (98-107); Creatinine, Serum 1.71 mg/dL (0.55-1.02); EST Glomerular Filtration Rate 31 mL/min (>60); Est Glom Filt Rate - Afr Amer 37 mL/min (>60); Estimated Creatinine Clearance 29.36 ml/min; Globulin 4.2 g/dL (2.2-4.2); Glucose 119 mg/dL (74-106); Potassium 4.1 mmol/L (3.5-5.1); Protein, Total 7.5 g/dL (6.4-8.2); Sodium Level 141 mmol/L (136-145)
[2023-06-12] MEDS: Carvedilol 25 MG Tablet PO (08:32)
[2023-06-12] MEDS: amLODIPine 10 MG Tablet PO (08:32)
[2023-06-12 08:52] LABS: Bedside Glucose 148 mg/dL (74-106)
[2023-06-12] MEDS: Ceftriaxone 1 GM/50 ML BAG IV (09:26)
[2023-06-12 10:58] VITALS: BP 204/75; PULSE 77; RESP 13; O2SAT 99
[2023-06-12 10:59] VITALS: BP 178/91
== END 2023-06-12 11:06 | disposition home or self-care (01) ==
PROVIDERS: Emergency Provider Emergency Medicine; PCP Family Medicine; Visit Provider Emergency Medicine
DX: N39.0 Urinary tract infection, site not specified (principal); Z89.512 Acquired absence of left leg below knee; Z89.421 Acquired absence of other right toe(s); E11.649 Type 2 diabetes mellitus with hypoglycemia without coma; Z79.4 Long term (current) use of insulin; R41.0 Disorientation, unspecified; I10 Essential (primary) hypertension; R53.1 Weakness; Z79.01 Long term (current) use of anticoagulants; Z79.02 Long term (current) use of antithrombotics/antiplatelets; Z79.890 Hormone replacement therapy; Z79.899 Other long term (current) drug therapy; Z95.1 Presence of aortocoronary bypass graft; Z95.5 Presence of coronary angioplasty implant and graft
CPT/HCPCS: 80053; 81001; 82962; 85025; 93005; 96365; 99283

== ENCOUNTER → 2023-07-02 | Outpatient (CLI) | payer MEDICARE, OTHER, SELFPAY ==
[2023-07-02 16:24] LABS: Mucous, Urine 0 SEEN /hpf (<or=2+); Red Blood Cells-Urine 0 SEEN /hpf (0-5); Squamous Epithelial Cells - UA 0 SEEN /hpf (5-10)
[2023-07-02 18:26] LABS: Color, Urine Yellow (Yellow); Glucose, Dipstick Normal (Normal); Ketone-Dipstick Negative (Negative); Leukocyte Esterase-Dipstick 500 /ul (Negative); Nitrite-Dipstick Positive (Negative); Occult Blood-Urine 10 /ul (Negative); Protein-Dipstick 100 mg/dl (Negative); Urine Bilirubin Dipstick Negative (Negative); Urine Clarity Sl. Cloudy (Clear); Urine Urobilinogen Normal (Normal)
[2023-07-02 18:33] LABS: Bacteria 3+ /hpf (None Seen); White Blood Cells 10-25 SEEN /hpf (0-5)
--- OUTSIDE RECORDS SUMMARY | 2023-07-02 19:40 | XMS RPT_ITS | CCD ---
Author Name Unknown Address [address] [place] [address] Organization [facility] Results Test Name Value Interpretation [...] Last Updated: 25-Dec-2021 07:34 by Kevin Brock) [facility] Summary Purpose Family History No Family History [...] BE BASED ON THE PRIMARY CLINICAL RECORDS. [facility] [facility]. provides no warranty or guarantee of the accuracy or completeness of information in this document.
== END | disposition home or self-care (01) ==
LOC: MFPLAB 16:23
PROVIDERS: PCP Family Medicine; Visit Provider Family Medicine
DX: R82.90 Unspecified abnormal findings in urine (principal)
CPT/HCPCS: 81001; 87086; 87088; 87186

== ENCOUNTER → 2023-07-17 | Outpatient (CLI) | payer MEDICARE, OTHER, SELFPAY ==
[2023-07-17 18:23] LABS: Vitamin B12 1607 pg/mL (211-911); Vitamin D,25 Hydroxy 51.2 ng/mL
[2023-07-17 19:10] LABS: ALB/GLOB Ratio 0.8 RATIO (0.9-2.4); AST(SGOT) 19 U/L (15-37); Alanine Aminotransfer ALT/SGPT 25 U/L (13-56); Alkaline Phosphatase 116 U/L (45-117); Anion Gap 7 (5-15); BUN 47 mg/dL (7-18); BUN/Creat Ratio 26.1 RATIO (10-20); Calcium,Total 8.4 mg/dL (8.5-10.1); Chloride 101 mmol/L (98-107); EST Glomerular Filtration Rate 29 mL/min (>60); Est Glom Filt Rate - Afr Amer 35 mL/min (>60); Ferritin 13 ng/mL (8-252); Free T3 2.3 pg/mL (2.18-3.98); Glucose 319 mg/dL (74-106); Potassium 4.3 mmol/L (3.5-5.1); Sodium Level 133 mmol/L (136-145); T4 Free Direct 0.97 ng/dL (0.76-1.46); Thyroid Stim Hormone (TSH) 2.14 uIU/mL (0.358-3.74)
--- OUTSIDE RECORDS SUMMARY | 2023-07-17 19:52 | XMS RPT_ITS | CCD ---
Author Name Unknown Address [address] [place] [address] Organization [facility] Results Test Name Value Interpretation [...] Last Updated: 25-Dec-2021 07:34 by Kevin Brock) [facility] Summary Purpose Family History No Family History [...] BE BASED ON THE PRIMARY CLINICAL RECORDS. [facility]. provides no warranty or guarantee of the accuracy or completeness of information in this document.
== END | disposition home or self-care (01) ==
PROVIDERS: PCP Family Medicine; Referring Provider Family Medicine; Visit Provider Family Medicine
DX: E11.22 Type 2 diabetes mellitus with diabetic chronic kidney disease (principal); Z79.4 Long term (current) use of insulin; N18.2 Chronic kidney disease, stage 2 (mild); E03.9 Hypothyroidism, unspecified; E53.8 Deficiency of other specified B group vitamins
CPT/HCPCS: 36415; 80053; 82306; 82607; 82728; 82746; 84439; 84443; 84481

== ENCOUNTER 2023-08-20 10:00 | Outpatient (RCR) | payer MEDICARE, OTHER, SELFPAY | END 2023-08-25 23:59 | LOC: NS 10:00 | PROVIDERS: PCP Family Medicine; Referring Provider Family Medicine; Visit Provider Family Medicine | DX: Z71.3 Dietary counseling and surveillance (principal); E11.22 Type 2 diabetes mellitus with diabetic chronic kidney disease; N18.9 Chronic kidney disease, unspecified | CPT/HCPCS: 97802; 97803 ==

== ENCOUNTER → 2023-09-13 | Outpatient (CLI) | payer MEDICARE, OTHER, SELFPAY ==
[2023-09-13 15:29] LABS: Absolute Neutrophil Count 7.7 X10^3/uL (2.0-7.7); Basophil# 0.03 X10^3/uL; Basophil% 0.3 % (0-1); Eosinophil# 0.23 X10^3/uL; Eosinophils% 2.2 % (0-5); Hematocrit 36.8 % (37-47); Hemoglobin 11.5 g/dL (12.0-15.0); Lymphocyte % 16.2 % (19-41); Mean Corp Hgb Conc 31.3 g/dL (32-36); Mean Corpuscular Hgb 27.4 pg (27.0-32.0); Mean Corpuscular Volume 87.8 fL (81-99); Mean Platelet Vol. 10.2 fl (6.2-12.0); Monocyte# 0.86 X10^3/uL; Monocyte% 8.2 % (0-10); NRBC Flagged by Analyzer 0 % (0-5); Neutrophil # 7.66 X10^3/uL (2.7-7.7); Neutrophil % 72.9 % (47-70); Platelet Count 179 K/mm3 (150-450); RET-HE 29.9 pg (30-35); Red Blood Count 4.19 M/mm3 (4.2-5.4); Reticulocyte Count 1.04 % (0.5-1.5); White Blood Count 10.5 K/mm3 (4.4-11.0)
[2023-09-13 15:51] LABS: Hemoglobin A1c 6.5 % (3.8-5.6)
[2023-09-13 15:55] LABS: Vitamin B12 1167 pg/mL (211-911); Vitamin D,25 Hydroxy 61.3 ng/mL
[2023-09-13 15:57] LABS: PTHIN 104.1 pg/mL (18.4-80.1)
[2023-09-13 16:00] LABS: Erythrocyte Sedimentation Rate 20 mm/hr (0-30)
[2023-09-13 16:36] LABS: ALB/GLOB Ratio 0.7 RATIO (0.9-2.4); AST(SGOT) 18 U/L (15-37); Alanine Aminotransfer ALT/SGPT 22 U/L (13-56); Albumin, Serum 2.9 g/dL (3.2-5.0); Alkaline Phosphatase 99 U/L (45-117); Anion Gap 7 (5-15); BUN 60 mg/dL (7-18); BUN/Creat Ratio 35.5 RATIO (10-20); CRP < 2.90 mg/L (0.0-3.0); Chloride 105 mmol/L (98-107); Creatinine, Serum 1.69 mg/dL (0.55-1.02); EST Glomerular Filtration Rate 31 mL/min (>60); Est Glom Filt Rate - Afr Amer 38 mL/min (>60); Ferritin 15 ng/mL (8-252); Globulin 3.9 g/dL (2.2-4.2); Glucose 134 mg/dL (74-106); Iron 44 ug/dL (50-170); Iron Binding Capacity,Total 317 ug/dL (250-450); Magnesium 2.1 mg/dL (1.6-2.6); PERCENT IRON SATURATION 13.9 % (15.0-55.0); Potassium 3.9 mmol/L (3.5-5.1); Protein, Total 6.8 g/dL (6.4-8.2); Sodium Level 137 mmol/L (136-145); Thyroid Stim Hormone (TSH) 1.42 uIU/mL (0.358-3.74)
[2023-09-19 05:08] LABS: Immunoglobulin A 409 mg/dL (64-422); Immunoglobulin G 1058 mg/dL (586-1602); Immunoglobulin M 71 mg/dL (26-217)
[2023-09-22 08:07] LABS: Immunoglobulin E 65 IU/mL (6-495); PROEL- A/G Ratio 0.8 (0.7-1.7); PROEL- Albumin 2.8 g/dL (2.9-4.4); PROEL- Alpha-1 Globulin 0.3 g/dL (0.0-0.4); PROEL- Beta Globulin 1.1 g/dL (0.7-1.3); PROEL- Gamma Globulin 1.2 g/dL (0.4-1.8); PROEL- Globulin, Total 3.6 g/dL (2.2-3.9); PROEL- TOTAL PROTEIN 6.4 g/dL (6.0-8.5); PROEL-M-Spike Not Observed g/dL (Not Observed)
== END | disposition home or self-care (01) ==
LOC: MFPLAB 12:12
PROVIDERS: PCP Family Medicine; Visit Provider Family Medicine
DX: E11.22 Type 2 diabetes mellitus with diabetic chronic kidney disease (principal); E11.40 Type 2 diabetes mellitus with diabetic neuropathy, unspecified; Z79.4 Long term (current) use of insulin; N18.32 Chronic kidney disease, stage 3b; E61.1 Iron deficiency; J30.2 Other seasonal allergic rhinitis; R53.83 Other fatigue; E53.8 Deficiency of other specified B group vitamins
CPT/HCPCS: 36415; 80053; 82306; 82607; 82728; 82746; 82784; 82785; 83036; 83540; 83550; 83735; 83970; 84165; 84443; 85025; 85045; 85652; 86140

== ENCOUNTER → 2023-10-02 | Outpatient (CLI) | payer MEDICARE, OTHER, SELFPAY ==
--- NOTE | 2023-10-02 12:25 | ECHOD_ITS ---
Reason For Study: Cardiac murmur Procedure This was a 2D Doppler, Color Flow transthoracic echocardiogram. Exam performed in department. Left Ventricle Normal LV size. Moderate concentric left ventricular hypertrophy. Left ventricular systolic function is normal. The left ventricular ejection fraction is 65 %. Stage 1 diastolic dysfunction. No regional wall motion abnormalities noted. Right Ventricle Normal RV size. Normal systolic function. Atria The left atrium is moderately enlarged. Normal right atrium. Mitral Valve Moderate focal mitral valve thickening. There is moderate mitral annular calcification. Mild (1+) eccentric mitral valve insufficiency. Tricuspid Valve Normal tricuspid valve. Mild tricuspid valve insufficiency. Pulmonary artery systolic pressure is 45 mmHg. Aortic Valve Trisinus/trileaflet aortic valve. Mild (1+) aortic valve insufficiency. Pulmonic Valve Normal pulmonic valve. Great Vessels Normal aortic root. The pulmonary artery is normal size. Normal inferior vena cava. Pericardium/Pleural No pericardial effusion. MMode/2D Measurements & Calculations LVIDd: 4.1 cm IVSd: 1.4 cm Ao root diam: 3.4 cm LVIDs: 2.8 cm LVPWd: 1.4 cm RVDd: 3.0 cm FS: 31.8 % LAV(MOD-bp): 62.2 ml LVAd ap4: 28.6 cm2 LVAd ap2: 26.0 cm2 LAV(MOD-bp) Indexed: 34.5 ml/m2 LVLd ap4: 8.1 cm LVLd ap2: 7.7 cm LAV(MOD-sp2): 49.7 ml EDV(MOD-sp4): 85.2 ml EDV(MOD-sp2): 77.4 ml LAV(MOD-sp4): 69.4 ml EDV(sp4-el): 85.9 ml EDV(sp2-el): 75.0 ml LVAs ap4: 14.8 cm2 LVAs ap2: 12.4 cm2 LVLs ap4: 6.3 cm LVLs ap2: 6.5 cm ESV(MOD-sp4): 31.9 ml ESV(MOD-sp2): 23.1 ml ESV(sp4-el): 29.5 ml ESV(sp2-el): 20.1 ml EF(MOD-sp4): 62.6 % EF(MOD-sp2): 70.2 % EF(sp4-el): 65.7 % SV(MOD-sp4): 53.4 ml SV(MOD-sp2): 54.3 ml SV(sp4-el): 56.5 ml LA dimension(2D): 4.7 cm LA A4 area: 21.1 cm2 RA A4 area: 15.4 cm2 TAPSE: 1.6 cm Time Measurements MV dec time: 0.25 sec Doppler Measurements & Calculations MV E max ebenezer: 124.5 cm/sec Lat Peak E' Ebenezer: 7.9 cm/sec Med Peak E' Ebenezer: 5.2 cm/sec MV A max ebenezer: 133.4 cm/sec E/E' lat: 15.8 E/E' med: 24.1 MV E/A: 0.93 MV V2 max: 147.3 cm/sec MV P1/2t max ebenezer: 114.3 cm/sec Ao V2 max: 140.2 cm/sec MV max P.7 mmHg MV P1/2t: 86.0 msec Ao max P.9 mmHg MV V2 mean: 90.9 cm/sec MV dec slope: 389.2 cm/sec2 Ao V2 mean: 99.6 cm/sec MV mean P.7 mmHg Ao mean P.5 mmHg MV V2 VTI: 45.9 cm MVA(P1/2t): 2.6 cm2 Ao V2 VTI: 34.9 cm AV (velocity ratio): 0.69 AI max ebenezer: 361.3 cm/sec LV V1 max: 103.5 cm/sec PA V2 max: 116.6 cm/sec AI max P.2 mmHg LV V1 max P.3 mmHg AI dec slope: 241.4 cm/sec2 LV V1 mean P.5 mmHg AI P1/2t: 438.3 msec LV V1 mean: 74.1 cm/sec LV V1 VTI: 24.0 cm TR max ebenezer: 322.1 cm/sec TR max P.5 mmHg ECHO/Echo Complete Interpretation Summary Normal LV size. Left ventricular systolic function is normal. Moderate concentric left ventricular hypertrophy. The left ventricular ejection fraction is 65 %. Stage 1 diastolic dysfunction. Mild (1+) eccentric mitral valve insufficiency. Mild (1+) aortic valve insufficiency. Ordering Physician: Maribell Chau Referring Physician: Con Johnson MD Performed By: Gaby Bowman RDCS
== END | disposition home or self-care (01) ==
LOC: CVS 12:25
PROVIDERS: PCP Family Medicine; Referring Provider Physician Assistant Medical; Visit Provider Physician Assistant Medical
DX: R01.1 Cardiac murmur, unspecified (principal)
CPT/HCPCS: 93306

== ENCOUNTER → 2023-10-22 | Outpatient (CLI) | payer MEDICARE, OTHER, SELFPAY ==
--- NOTE | 2023-10-22 15:20 | RAD_ITS ---
STUDY: X-RAY - PARANASAL SINUSES REASON FOR EXAM: Female, 78 years old. Nasal congestion and drainage. TECHNIQUE: 3 view(s) of the paranasal sinuses were obtained. COMPARISON: None. FINDINGS: Osteopenia. Normal visualized frontal, maxillary, ethmoidal and sphenoid sinuses. Normal visualized facial bones. The soft tissue structures are normal. RAD/Sinuses min 3 Views IMPRESSION: Osteopenia with no other abnormality. Specifically, no mucosal thickening or air-fluid level. Electronically Signed: Milton Menard MD at 15:39 EDT ,
[2023-10-22 15:59] LABS: D-Dimer Quantitative (DVT/PE) 0.48 FEU/ug/m (0.27-0.49)
[2023-10-22 16:27] LABS: Ferritin 13 ng/mL (8-252); Iron 37 ug/dL (50-170); Iron Binding Capacity,Total 322 ug/dL (250-450); PERCENT IRON SATURATION 11.5 % (15.0-55.0); Thyroid Stim Hormone (TSH) 4.38 uIU/mL (0.358-3.74)
[2023-10-22 16:48] LABS: Lactic Acid 0.7 mmol/L (0.4-1.9)
[2023-10-22 17:01] LABS: BNP,B-Type NATRIURETIC PEPTIDE 268.7 pg/mL (0-100)
== END | disposition home or self-care (01) ==
LOC: LAB 14:45
PROVIDERS: PCP Family Medicine; Referring Provider Family Medicine; Visit Provider Family Medicine
DX: E61.1 Iron deficiency (principal); R53.83 Other fatigue; R09.81 Nasal congestion
CPT/HCPCS: 70220; 82728; 83540; 83550; 83605; 83880; 84443; 85379

== ENCOUNTER → 2023-11-01 | Outpatient (CLI) | payer MEDICARE, OTHER, SELFPAY ==
[2023-11-01 15:51] LABS: ALB/GLOB Ratio 0.7 RATIO (0.9-2.4); AST(SGOT) 13 U/L (15-37); Alanine Aminotransfer ALT/SGPT 19 U/L (13-56); Albumin, Serum 2.7 g/dL (3.2-5.0); Alkaline Phosphatase 119 U/L (45-117); Anion Gap 7 (5-15); BUN 47 mg/dL (7-18); BUN/Creat Ratio 28.7 RATIO (10-20); Calcium,Total 8.5 mg/dL (8.5-10.1); Chloride 106 mmol/L (98-107); Creatinine, Serum 1.64 mg/dL (0.55-1.02); EST Glomerular Filtration Rate 32 mL/min (>60); Est Glom Filt Rate - Afr Amer 39 mL/min (>60); Globulin 3.9 g/dL (2.2-4.2); Glucose 91 mg/dL (74-106); Magnesium 2.1 mg/dL (1.6-2.6); Potassium 3.7 mmol/L (3.5-5.1); Protein, Total 6.6 g/dL (6.4-8.2); Sodium Level 137 mmol/L (136-145)
[2023-11-01 16:39] LABS: Osmolality, Serum 307 mOsm/KG (280-301)
== END | disposition home or self-care (01) ==
LOC: MFPLAB 12:20
PROVIDERS: PCP Family Medicine; Visit Provider Family Medicine
DX: E87.1 Hypo-osmolality and hyponatremia (principal)
CPT/HCPCS: 36415; 80053; 82140; 83735; 83930

== ENCOUNTER 2024-01-08 07:31 | Day surgery (SDC) | payer MEDICARE, OTHER, SELFPAY ==
[2024-01-08] VITALS (10 sets, daily range): BP systolic 123–147; BP diastolic 52–58; PULSE 58–65; RESP 16; TEMP 36.2–37.1; O2SAT 90–96; BMI 26.7
--- NOTE | 2024-01-08 08:17 | PCM.HP.BLA ---
History and Physical Date of Admission: 01/08/24 Date of Service: 12/20/23 MR#: [id number] Acct: [id number] Name: SEBASTIÁN REYES Rep #: [id number] : 1945 Provider: Dr. Meghan Branch MD Age/Sex: 78/F Location: [facility] Status: Signed Intake Vital Signs 09/29/2409:48 12/19/2414:08 Height 5 ft 5 in 5 ft 5 in Weight: 165 lb BMI 27.4 BP 134/67 H Blood Pressure Location Lt brachial Position Sitting Respiration 17 Pulse 66 Pulse Source Monitor Pulse Oximetry (%) 97 Oxygen Delivery Method room air Intake Visit Reasons: GI BLEED Chief Complaint: positive occult stool test Is patient in pain?: Yes Allergies atorvastatin calcium (From Lipitor) Allergy (Verified 12/20/23 15:09) Unknownbupropion HCl (From Wellbutrin) Allergy (Verified 12/20/23 15:09) Unknownmannitol (From Reclast) Allergy (Verified 12/20/23 15:09) joint pain, unable to breathe, unable to walkpropoxyphene napsylate (From Darvocet-N 100) Allergy (Verified 12/20/23 15:09) UnknownQuinolones Allergy (Verified 12/20/23 15:09) UnknownTetanus Vaccines and Toxoid (Tetanus Vaccines & Toxoid) Allergy (Verified 12/20/23 15:09) Chest tightnesszoledronic acid (From Reclast) Allergy (Verified 12/20/23 15:09) joint pain,unable to breathe, unaable to walkgemfibrozil Adverse Reaction (Intermediate, Verified 12/20/23 15:09) Unknownamoxicillin Adverse Reaction (Mild, Verified 12/20/23 15:09) RashNSAIDS (Non-Steroidal Anti-Inflamma Adverse Reaction (Verified 12/20/23 15:09) Other Medications ?Medication ?Instructions ?Recorded ?Confirmed ?Type pravastatin 40 mg tablet 40 mg PO QHS CHOLESTEROL 03/10/17 12/20/23 History mwfupl-qrnykfvg-qwopsgk 1 cap PO BID IBS 04/05/20 12/20/23 History 24,000-76,000-120,000 unit capsule,delayed rel (Creon) levothyroxine 75 mcg tablet 75 mcg PO QHS THYROID 08/17/20 12/20/23 History metoclopramide HCl 10 mg tablet 10 mg PO Q8H PRN PRN Nausea 08/17/20 12/20/23 History trazodone 100 mg tablet 100 mg PO 2200 SLEEP 08/17/20 12/20/23 History polyethylene glycol 3350 17 gram 17 gm PO BID constipation 09/19/20 12/20/23 History oral powder packet sennosides 8.6 mg-docusate sodium 1 tablet PO QHS constipation 09/19/20 12/20/23 History 50 mg tablet esomeprazole magnesium 20 mg 20 mg PO DAILY GERD 12/08/20 12/20/23 History capsule,delayed release linaclotide 72 mcg capsule 72 mcg PO DAILY PRN STOOL 06/12/22 12/20/23 History ammonium lactate 12 % topical cream 1 applic topical PRN PRN Skin 08/20/22 12/20/23 History Cleansing calcium citrate 200 mg (950 mg) 250 mg PO BID supplement 08/20/22 12/20/23 History tablet camphor-menthol 11 %-10 % topical 1 applic topical PRN PRN Pain 08/20/22 12/20/23 History cream ([place]) menthol 0.44 %-zinc oxide 20.6 % 1 applic topical DAILY PRN Skin 08/20/22 12/20/23 History topical ointment (Calmoseptine) Cleansing nystatin 100,000 unit/gram topical 1 applic topical DAILY SKIN 08/20/22 12/20/23 History cream sitagliptin phosphate 25 mg tablet 25 mg PO DAILY DIABETES 08/20/22 12/20/23 History (Januvia) tizanidine 4 mg tablet 4 mg PO 2200 PAIN 08/20/22 12/20/23 History venlafaxine 100 mg tablet 100 mg PO BID DEPRESSION 08/20/22 12/20/23 History insulin aspart U-100 100 unit/mL 9 unit (0.09 mL) subcut BID 09/07/22 12/20/23 Rx (3 mL) subcutaneous pen (Novolog DIABETES 30 days #0 mL FlexPen U-100 Insulin aspart) morphine 10 mg/5 mL oral solution 5 mg (2.5 mL) PO DAILY PAIN 5 days 09/07/22 12/20/23 Rx #12.5 mL pregabalin 75 mg capsule 75 mg PO DAILY 14 days #14 caps 09/07/22 10/02/23 Rx carvedilol 25 mg tablet 25 mg PO BID BP #180 tabs 12/28/22 12/20/23 Rx hydralazine 25 mg tablet 25 mg PO TID #90 tabs 03/25/23 12/20/23 Rx nitroglycerin 400 mcg/spray 0.4 mg sublingual TID PRN PRN 05/06/23 12/20/23 Rx translingual chest pain #4.9 grams clopidogrel 75 mg tablet 75 mg PO DAILY #90 TABLETS 08/05/23 12/20/23 Rx oxybutynin chloride 10 mg 5 mg PO TID 08/29/23 12/20/23 History tablet,extended release 24 hr amlodipine 10 mg tablet 10 mg PO DAILY for blood pressure 11/18/23 12/20/23 Rx #90 TABLETS isosorbide mononitrate 60 mg 60 mg PO TID HEART 90 days #270 11/18/23 12/20/23 Rx tablet,extended release 24 hr tabs allopurinol 100 mg tablet 100 mg PO DAILY 12/20/23 12/20/23 History Have you fallen in the past year?: No [facility] History Acquired equinus deformity of left foot Acute hyperkalemia Amput foot, unilat-complicated Anemia Anxiety Atherosclerotic heart disease of [place] coronary artery without angina pectoris Back pain Blackout Bladder disease Cardiac murmur Cardiology follow-up encounter Carpal tunnel syndrome Charcot foot due to diabetes mellitus Charcot's joint of left foot Chest pain Delayed wound healing Dietary restriction DVT (deep venous thrombosis) Equinus contracture of left ankle Essential hypertension Gastric reflux GERD (gastroesophageal reflux disease) GI bleed Gout High cholesterol History of blood clots History of Clostridium difficile infection History of CVA (cerebrovascular accident) History of echocardiogram History of edema History of heart attack History of IBS History of non-ST elevation myocardial infarction (NSTEMI) (08/2020) History of renal disease History of stress test Humerus fracture Hyperlipidemia Hypothyroidism Insulin dependent diabetes mellitus Iron deficiency anemia Left-sided extracranial carotid artery stenosis Migraines MRSA infection Non-pressure chronic ulcer of left ankle with necrosis of muscle Non-pressure chronic ulcer of other part of left foot with fat layer exposed Non-pressure chronic ulcer of other part of left foot with fat layer exposed 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 evidence of necrosis Non-smoker Obesity Open wound Opioid dependence Osteoporosis Other acute postprocedural pain PAD (peripheral artery disease) Peripheral arterial occlusive disease Post-menopausal Restless legs Shortness of breath on exertion Sleep apnea Stenosis of right subclavian artery Stroke/cerebrovascular accident Thyroid disease Type 2 diabetes mellitus with diabetic polyneuropathy Type 2 diabetes mellitus with diabetic polyneuropathy Type 2 diabetes mellitus with foot ulcer Ulcer of abdomen wall with fat layer exposed Ulcer of left foot with fat layer exposed Uses wheelchair Vitamin D deficiency Wears dentures Wears glasses Surgical History History of Achilles tendon repair Hx of amputation of foot History of foot surgery History of neck surgery History of angioplasty of peripheral vessel (12/2014) H/O coronary artery bypass surgery (09/09/14) History of coronary artery stent placement (09/22/20) History of [place] amputation of left foot History of appendectomy History of cholecystectomy History of ventral hernia repair History of gastric bypass History of excision of lesion Hx of ventral hernia repair Family History Mother , age 75 Cancer CVA (cerebral vascular accident) CAD (coronary artery disease)Father CAD (coronary artery disease) History of coronary artery bypass graftSister CAD (coronary artery disease) Multiple sclerosisOther Anxiety Bleeding disorder Depression Diabetes Heart disease High cholesterol Hypertension Social History Smoking Status: Never smoker alcohol intake: never substance use type: does not use caffeine: Yes Type: coffee what type of physical activity do you participate in: none seatbelt use: sometimes do you feel safe at home: Yes additional social history: DOES NOT TAKE ASPIRIN DOES TAKE IBUPROFEN NEEDED HPI HPI HPI: 78-year-old female presents for colonoscopy due to diarrhea. Patient thinks her last colonoscopy was 2 years ago at does remember doing the prep however the only note I have is for an EGD as patient previously had gastric bypass along with multiple other abdominal surgeries. Patient states she has bowel movements about 5-6 times a day does have some normal bowel movements along with the diarrhea. Patient admits to occasional vomiting. Patient was Hemoccult positive at her PCP. ROS General General: Yes weight change and fatigue; No appetite, colon cancer or breast cancer HEENT HEENT: No difficulty swallowing, eye injury, eye surgery, swollen glands or hoarseness Endo Endocrine: Yes diabetes mellitus; No thyroid disease, thyroid cancer, Hair loss, heat intolerance or cold intolerance Skin Skin: No rash or changing moles Musc Musculoskeletal: Yes back problems and gout; No arthritis, rheumatoid arthritis or joint pain Cardio Cardiovascular: Yes heart disease, high blood pressure, heart attack and heart stent; No murmur, pacemaker, atrial fibrillation, palpitations, shortness of breat with exertion or chest pain Psych Psychiatric: Yes anxiety; No depression or hearing voices Resp Respiratory: Yes shortness of breath, Yes sleep apnea, No cough, No COPD, No asthma, No emphysema and No wheezing Gastro Gastrointestinal: Yes abdominal pain, Yes nausea or vomiting, Yes diarrhea, Yes constipation, No blood in stool, Yes acid reflux, No hemorrhoids, Yes ulcers, No gallbladder problem and No black,tarry stools Additional Details: h/o gastric bypass [place] Hematologic: Yes blood thinners, No blood disorders, No bleeding, Yes anemia and Yes blood clots Neuro Neurologic: No numbness and No tingling Exam Const General: cooperative, healthy appearing, comfortable and no acute distress HENMT Head: normocephalic and atraumatic Neck Neck: supple Resp Effort & Inspection: normal respiratory effort Cardio Rate: regular rate GI Inspection: non-distended Palpation: soft and nontender Skin General: no rashes or lesions noted Neuro General: CN's II-XI intact bilaterally Extrem General: normal to inspection Psych Mental Status: mental status grossly normal Attitude: cooperative Assessment and Plan Assessment and Plan (1) Fecal occult blood test positive: Status: Acute Plan Discussed with patient we will try to obtain previous colonoscopy report if it was done 2 years ago. Addendum patient states she is having bright red blood per her rectum will plan to schedule colonoscopy?still have not found on colonoscopy report.. Patient will need to hold her Plavix I have discussed the above with the patient. I have offered the patient colonoscopy for evaluation. I have explained the risks/benefits of the procedure and described the procedure. I have discussed the risks with the patient, including but not limited to: infection, bleeding, perforation of the GI tract requiring emergency surgery, inability to complete the procedure, injury to any internal organs, complications of anesthesia, etc. - the patient understands and agrees to proceed. I have answered all the patient's questions to the patient's satisfaction and the patient has no further questions. The patient has been given instructions for the colon cleansing preparation. Meghan Branch M.D. Pager: [phone] [facility] [address] [place] [address], [address] [place] [address] Office: [phone] Coding Level of Care Code Off vis,new,level 3 Diagnoses Fecal occult blood test positive R19.5 Clinical Quality Measures Falls Risk Screening/Assistive Devices Have you fallen in the past year?: No 12/24/23 1031 <Electronically signed by Meghan Branch MD> Date Meghan Branch MD
[2024-01-08] MEDS: Lactated Ringers 1,000 ML 15 ML IV (09:20)
--- NOTE | 2024-01-08 09:34 | PCM.PRE.AN2 ---
ASA Classification* ASA Classification ASA Classification: 3 Assessment & Plan Anesthesia* Anesthesia Assessment Anesthesia Assessment: Discussed sedation and/or anesthesia options, risks, benefits, and alternatives with patient/parents/legal guardian/POA. Questions invited. The patient/parents/legal guardian/POA seems to understand and agrees to proceed with anesthesia plan. Reviewed the physical assessment, medical history, allergy history and patient home medications list prior to surgery/procedure/anesthetic and documented any changes. Performed airway and anesthesia risk assessments. Anesthesia Type Anesthesia Type: MAC Anesthesia Focused Assessment* Temperature: 98.7 F Pulse Rate: 65 Blood Pressure: 147/57 Respiratory Rate: 16 Pulse Ox: 96 Airway Assessment Mouth opens: >3 cm Mallampati Score: II Focused Labs Anesthesia Preop lab: CBC WBC 10.5 K/mm3 (4.4-11.0) 09/13/23 12:12 RBC 4.19 M/mm3 (4.2-5.4) L 09/13/23 12:12 Hgb 11.5 g/dL (12.0-15.0) L 09/13/23 12:12 Hct 36.8 % (37-47) L 09/13/23 12:12 Plt Count 179 K/mm3 (150-450) 09/13/23 12:12 CHEMISTRY Potassium 3.7 mmol/L (3.5-5.1) 11/01/23 12:20 Sodium 137 mmol/L (136-145) 11/01/23 12:20 Magnesium 2.1 mg/dL (1.6-2.6) 11/01/23 12:20 Phosphorus 4.1 mg/dL (2.5-4.9) 08/17/20 16:50 BUN 47 mg/dL (7-18) H 11/01/23 12:20 Creatinine 1.64 mg/dL (0.55-1.02) H 11/01/23 12:20 Glucose 91 mg/dL (74-106) 11/01/23 12:20 POC Glucose 148 mg/dL (74-106) H 06/12/23 08:31 TSH 4.38 uIU/mL (0.358-3.74) H 10/22/23 14:57 COAG PT 14.1 SECONDS (11.7-14.9) 12/13/20 08:40 Pre-Assessment Diagnosis/Proposed Procedure Planned Operative Procedure(s): CSCOPE Anesthesia History 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 When Was Last Pacemaker Check QUESTION #4 FULL TEXT: You/Your Family Experience fever (hyperthermia) with Anesthesia Last Oral Intake Last Oral intake: Last Oral Intake NPO since 07:00 01/08/24 09:16 Meds taken in AM with sips of water? 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 operations manager Female Yes 01/06/24 10:55 HX of Motion Sickness Yes 01/06/24 10:55 HX of N/V After Surgery No 01/06/24 10:55 Non-Smoker Yes 01/06/24 10:55 Duration of Surgery greater No 01/06/24 10:55 than 60 minutes Number of Risk Factors 3 01/06/24 10:55 PONV Score Moderate Risk 01/06/24 10:55 Height & Weight Height & Weight: Anesthesia: Height & Weight Height 5 ft 5 in 01/08/24 09:16 Weight: 73 kg 01/08/24 09:16 Body Mass Index (BMI) 26.7 01/08/24 09:16 Respiratory Assessment Respiratory Assessment - space systems operations manager: Respiratory Tract Infection Hx - space systems operations manager Hx Respiratory Tract Infection No 01/06/24 10:55 STOP Sleep Apnea STOP Sleep Apnea - space systems operations manager: STOP Sleep Apnea - space systems operations manager Hx Hypertension Yes: CONTROLLED WITH MED 01/06/24 10:55 Hx Sleep Apnea Yes 01/06/24 10:55 CPAP No 01/06/24 10:55 BIPAP Yes: NONCOMPLIANT 08/12/24 10:55 Do you snore loudly (louder than talking or can be heard Do you often feel tired/ fatigued/ sleepy during daytime? Has anyone observed you stop breathing during sleep? STOP Results Positive 01/06/24 10:55 QUESTION #5 FULL TEXT : Do you snore loudly (louder than talking or can be heard through closed doors)? 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 Specify any problems Hx of Preganancy in last 3 No 01/06/24 10:55 Months Nurse Filling Out Transfusion DSCHRIBER 01/06/24 10:55 & Questions: Date: 01/06/24 01/06/24 10:55 Time: 10:57 01/06/24 10:55 Patient unable to answer at this time (ie. confused, unrespo /Reproduction History /Reproductive History - space systems operations manager: /Reproductive Hx- space systems operations manager Hx Now No 01/06/24 10:55 Gestational Age (in weeks): EDC: Hx Hx Para Hx Section SAB No 01/06/24 10:55 Active Medications Active Medications: Current Medications Generic Name Dose Route Start Last Admin Trade Name Freq PRN Reason Stop Dose Admin Lactated Ringer's 1,000 mls @ 15 mls/hr 01/08/24 09:15 01/08/24 09:20 IV 15 mls/hr .Q48H SHAHBAZ Administration PFSH Medical History Phantom limb pain History of pressure injury of skin Cardiac murmur Bladder disease Uses wheelchair High cholesterol Back pain Stroke/cerebrovascular accident Dietary restriction Shortness of breath on exertion Gastric reflux Insulin dependent diabetes mellitus DVT (deep venous thrombosis) History of heart attack Cardiology follow-up encounter Chest pain Non-pressure chronic ulcer of other part of left foot with fat layer exposed Non-pressure chronic ulcer of left ankle with necrosis of muscle Non-pressure chronic ulcer of other part of left foot with fat layer exposed Acquired equinus deformity of left foot Other acute postprocedural pain Wears glasses Wears dentures Post-menopausal History of Clostridium difficile infection MRSA infection Thyroid disease History of renal disease Restless legs Blackout History of IBS History of echocardiogram History of stress test History of edema Left-sided extracranial carotid artery stenosis Stenosis of right subclavian artery History of non-ST elevation myocardial infarction (NSTEMI) (08/2020) PAD (peripheral artery disease) Humerus fracture Opioid dependence Charcot foot due to diabetes mellitus Amput foot, unilat-complicated Equinus contracture of left ankle Type 2 diabetes mellitus with diabetic polyneuropathy Type 2 diabetes mellitus with foot ulcer 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 evidence of necrosis Anemia Anxiety Hypothyroidism GI bleed Non-smoker Sleep apnea Migraines Acute hyperkalemia Delayed wound healing Essential hypertension Ulcer of abdomen wall with fat layer exposed Osteoporosis Gout Carpal tunnel syndrome History of blood clots Ulcer of left foot with fat layer exposed Type 2 diabetes mellitus with diabetic polyneuropathy Charcot's joint of left foot History of CVA (cerebrovascular accident) Peripheral arterial occlusive disease Atherosclerotic heart disease of [place] coronary artery without angina pectoris Vitamin D deficiency GERD (gastroesophageal reflux disease) Iron deficiency anemia Hyperlipidemia Obesity Home Medications ?Medication ?Instructions ?Recorded ?Last Taken ?Type pravastatin 40 mg tablet 40 mg PO QHS CHOLESTEROL 03/10/17 12/07/20 History nedeia-iuwroluk-ezlrgvw 1 cap PO BID IBS 04/05/20 12/08/20 History 24,000-76,000-120,000 unit capsule,delayed rel (Creon) levothyroxine 75 mcg tablet 75 mcg PO QHS THYROID 08/17/20 01/08/24 History metoclopramide HCl 10 mg tablet 10 mg PO Q8H PRN PRN Nausea 08/17/20 12/07/20 History trazodone 100 mg tablet 100 mg PO 2200 SLEEP 08/17/20 12/07/20 History polyethylene glycol 3350 17 gram 17 gm PO DAILY PRN PRN constipation 09/19/20 12/08/20 History oral powder packet esomeprazole magnesium 20 mg 20 mg PO DAILY GERD 12/08/20 01/08/24 History capsule,delayed release linaclotide 72 mcg capsule 72 mcg PO DAILY PRN STOOL 06/12/22 Unknown History ammonium lactate 12 % topical cream 1 applic topical PRN PRN Skin 08/20/22 Unknown History Cleansing camphor-menthol 11 %-10 % topical 1 applic topical PRN PRN Pain 08/20/22 Unknown History cream ([place]) menthol 0.44 %-zinc oxide 20.6 % 1 applic topical DAILY PRN Skin 08/20/22 Unknown History topical ointment (Calmoseptine) Cleansing nystatin 100,000 unit/gram topical 1 applic topical DAILY SKIN 08/20/22 Unknown History cream sitagliptin phosphate 25 mg tablet 25 mg PO DAILY DIABETES 08/20/22 Unknown History (Kasi) tizanidine 4 mg tablet 4 mg PO 2200 PAIN 08/20/22 Unknown History venlafaxine 100 mg tablet 100 mg PO BID DEPRESSION 08/20/22 09/03/22 History nitroglycerin 400 mcg/spray 0.4 mg sublingual TID PRN PRN 05/06/23 Unknown Rx translingual chest pain #4.9 grams clopidogrel 75 mg tablet 75 mg PO DAILY #90 TABLETS 08/05/23 01/02/24 Rx amlodipine 10 mg tablet 10 mg PO DAILY for blood pressure 11/18/23 01/08/24 Rx #90 TABLETS isosorbide mononitrate 60 mg 60 mg PO TID HEART 90 days #270 11/18/23 01/08/24 Rx tablet,extended release 24 hr tabs allopurinol 100 mg tablet 100 mg PO DAILY 12/20/23 Unknown History carvedilol 25 mg tablet 25 mg PO BID for blood pressure 12/26/23 01/08/24 Rx #180 TABLETS hydralazine 25 mg tablet 25 mg PO TID #270 TABLETS 12/26/23 01/08/24 Rx alpha lipoic acid 100 mg capsule 100 mg PO BID 01/06/24 Unknown History ergocalciferol (vitamin D2) 1,250 1,250 mcg PO QWEEK 01/06/24 Unknown History mcg (50,000 unit) capsule hydrochlorothiazide 12.5 mg capsule 12.5 mg PO DAILY 01/06/24 Unknown History insulin aspart U-100 100 unit/mL 3 unit subcut BID DIABETES 01/06/24 Unknown History (3 mL) subcutaneous pen (Novolog FlexPen U-100 Insulin aspart) insulin glargine 100 unit/mL (3 14 unit subcut DAILY 01/06/24 Unknown History mL) subcutaneous pen (Basaglar KwikPen U-100 Insulin) mirabegron 25 mg tablet,extended 25 mg PO DAILY 01/06/24 Unknown History release 24 hr morphine 10 mg/5 mL oral solution 5 mg PO BID PAIN 01/06/24 Unknown History sucralfate 1 gram tablet (Carafate) 1 g PO BID 01/06/24 Unknown History Allergy/AdvReac Type Severity Reaction Status Date / Time atorvastatin calcium (From Allergy Unknown Verified 01/08/24 09:13 Lipitor) bupropion HCl (From Allergy Unknown Verified 01/08/24 09:13 Wellbutrin) mannitol (From Reclast) Allergy joint Verified 01/08/24 09:13 pain, unable to breathe, unable to walk propoxyphene napsylate (From Allergy Unknown Verified 01/08/24 09:13 Darvocet-N 100) Quinolones Allergy Unknown Verified 01/08/24 09:13 Tetanus Vaccines and Toxoid Allergy Chest Verified 01/08/24 09:13 (Tetanus Vaccines & Toxoid) tightness zoledronic acid (From Allergy joint Verified 01/08/24 09:13 Reclast) pain,unable to breathe, unaable to walk gemfibrozil AdvReac Intermediate Unknown Verified 01/08/24 09:13 amoxicillin AdvReac Mild Rash Verified 01/08/24 09:13 NSAIDS (Non-Steroidal AdvReac Other Verified 01/08/24 09:13 Anti-Inflamma Family History Mother , age 75 Cancer CVA (cerebral vascular accident) CAD (coronary artery disease) Father CAD (coronary artery disease) History of coronary artery bypass graft Sister CAD (coronary artery disease) Multiple sclerosis Other Anxiety Bleeding disorder Depression Diabetes Heart disease High cholesterol Hypertension Surgical History History of cardiac catheterization Hx of amputation below knee History of Achilles tendon repair Hx of amputation of foot History of foot surgery History of neck surgery History of angioplasty of peripheral vessel (12/2014) H/O coronary artery bypass surgery (09/09/14) History of coronary artery stent placement (09/22/20) History of [place] amputation of left foot History of appendectomy History of cholecystectomy History of ventral hernia repair History of gastric bypass History of excision of lesion Hx of ventral hernia repair Social History Smoking Status: Never smoker alcohol intake: never substance use type: does not use caffeine: Yes Type: coffee what type of physical activity do you participate in: none seatbelt use: sometimes do you feel safe at home: Yes additional social history: DOES NOT TAKE ASPIRIN DOES TAKE IBUPROFEN NEEDED Review of Systems (Anesthesia) ROS Narrative System reviewed and no additional complaints, except as documented.
[2024-01-08 10:10] LABS: Bedside Glucose 157 mg/dL (74-106)
--- NOTE | 2024-01-08 12:05 | OP.COLON_ITS ---
Patient Name: Lisa Seay Procedure Date: 01/08/2024 10:55 AM Date of : 1945 Age: 78 Procedure: Colonoscopy Indications: Heme positive stool, Rectal bleeding Providers: Meghan Branch MD Referring MD: Meghan Branch MD Medicines: Monitored Anesthesia Care Patient Profile: This is a 78 year old female. Last Colonoscopy: unsure. Complications: No immediate complications. Procedure: Pre-Anesthesia Assessment: - Prior to the procedure, a History and Physical was performed, and patient medications and allergies were reviewed. The patient's tolerance of previous anesthesia was also reviewed. The risks and benefits of the procedure and the sedation options and risks were discussed with the patient. All questions were answered, and informed consent was obtained. Prior Anticoagulants: The patient has taken Plavix (clopidogrel), last dose was 5 days prior to procedure. ASA Grade Assessment: Per anesthesia. After reviewing the risks and benefits, the patient was deemed in satisfactory condition to undergo the procedure. After I obtained informed consent, the scope was passed under direct vision. Throughout the procedure, the patient's blood pressure, pulse, and oxygen saturations were monitored continuously. The pediatric colonoscope was introduced through the anus and advanced to the ascending colon-unable to intubate cecum and liquid/fibrous debris still in cecum-picture taken. The colonoscopy was performed with moderate difficulty due to significant looping and a tortuous colon. Successful completion of the procedure was aided by applying abdominal pressure. The patient tolerated the procedure well. The quality of the bowel preparation was adequate to identify polyps. Scope In: 11:09:40 AM Scope Withdrawal Time 0 hours 8 minutes 17 seconds Scope Out: 11:56:11 AM Total Procedure Duration Time 0 hours 46 minutes 31 seconds Findings: Hemorrhoids were found on perianal exam. Non-bleeding internal hemorrhoids were found. The hemorrhoids were Grade I (internal hemorrhoids that do not prolapse). The exam was otherwise without abnormality. Impression: - Hemorrhoids found on perianal exam. - Non-bleeding internal hemorrhoids. - The examination was otherwise normal. - No specimens collected. Recommendation: - Discharge patient to home. - Resume previous diet. - Continue present medications. - Resume Plavix (clopidogrel) at prior dose today. - No repeat colonoscopy due to current age (66 years or older). Procedure Code(s): --- Professional --- 11582, 53, Colonoscopy, flexible; diagnostic, including collection of specimen(s) by brushing or washing, when performed (separate procedure) Diagnosis Code(s): --- Professional --- K64.0, First degree hemorrhoids R19.5, Other fecal abnormalities K62.5, Hemorrhage of anus and rectum CPT copyright 2021 [employer] [employer]. All rights reserved. The codes documented in this report are preliminary and upon invoice coder review may be revised to meet current compliance requirements. MD Meghan Burrell MD 01/08/2024 12:04:53 PM This report has been signed electronically. Number of Addenda: 0 Note Initiated On: 01/08/2024 10:55 AM
--- NOTE | 2024-01-08 12:05 | OP.CCLET_ITS ---
01/08/2024 Con Johnson [address] [place] [address] Re : Colonoscopy procedure for Lisa Seay Dear Dr. Johnson This procedure was performed on Monday, January 08, 2024. My impressions and recommendations are as follows: Impressions : - Hemorrhoids found on perianal exam. - Non-bleeding internal hemorrhoids. - The examination was otherwise normal. - No specimens collected. Recommendations : - Discharge patient to home. - Resume previous diet. - Continue present medications. - Resume Plavix (clopidogrel) at prior dose today. - No repeat colonoscopy due to current age (66 years or older). My findings are described in the full procedure note, which is enclosed. If I can be of further assistance, please feel free to contact me at Doctor phone number(s): , Work: . Sincerely, MD Meghan Burrell MD 01/08/2024 12:04:53 PM This report has been signed electronically.
--- NOTE | 2024-01-08 12:06 | PCM.POST.ANE ---
Anesthesia: Postop Eval I Current Vital Signs Temperature: 97.1 F Pulse Rate: 62 Blood Pressure: 127/56 Respiratory Rate: 16 Pulse Ox: 96 Oxygen Delivery Method: Room Air Assessment Airway patent: Yes Spontaneous unlabored respirations: Yes Mental status: Awake and Calm nausea: No Vomiting: No Anesthesia Complication: No Fluid Hydration Crystalloid volume administer (ml): 800 Total IV fluid infused: 800 Progress Note Anesthesia document: Postop Eval 1 completed: Yes
--- NOTE | 2024-01-08 16:25 | PCM.POSTANE2 ---
Anesthesia Postop Eval I Sum Postop Eval Completion status Anesthesia document: Postop Eval 1 completed: Yes Anesthesia Postop Eval I Summary Anesthesia Postop Eval I Summary: Anesthesia Postop Eval I: Assessment Summary Airway patent Yes 01/08/24 12:07 [email or web address] Spontaneous unlabored Yes 01/08/24 12:07 [email or web address] respirations Mental status Awake,Calm 01/08/24 12:07 [email or web address] nausea No 01/08/24 12:07 [email or web address] Vomiting No 01/08/24 12:07 [email or web address] Anesthesia Postop Eval I: Fluid Summary Crystalloid volume administer 800 01/08/24 12:07 [email or web address] (ml) Colloids volume administered ( ml) Blood Product volume administered (ml) Total IV fluid infused 800 01/08/24 12:07 [email or web address] Anesthesia Postop Eval I: Summary Notes Anesthesia Complication No 01/08/24 12:07 [email or web address] Anesthesia Complication Comment: Post-operative progress note Anesthesia: Postop Eval II Evaluation Mental status: Awake and Calm Pain Level: 0 nausea: No Vomiting: No Complications Anesthesia Complication: No
== END 2024-01-08 13:11 | disposition home or self-care (01) ==
LOC: EN 07:33 → AC 07:35
PROVIDERS: PCP Family Medicine; Referring Provider Surgery; Visit Provider Surgery
PROC: 0DJD8ZZ Inspection of Lower Intestinal Tract, Via Natural or Artificial Opening Endoscopic (ICD-10-PCS; CPT 45378; principal; 2024-01-08 10:10)
DX: K62.5 Hemorrhage of anus and rectum (principal); Z79.4 Long term (current) use of insulin; E11.42 Type 2 diabetes mellitus with diabetic polyneuropathy; R19.5 Other fecal abnormalities; R11.10 Vomiting, unspecified; K64.0 First degree hemorrhoids; I25.10 Atherosclerotic heart disease of native coronary artery without angina pectoris; I10 Essential (primary) hypertension; R19.7 Diarrhea, unspecified; E78.00 Pure hypercholesterolemia, unspecified; E03.9 Hypothyroidism, unspecified; Z79.84 Long term (current) use of oral hypoglycemic drugs; Z79.02 Long term (current) use of antithrombotics/antiplatelets; Z79.890 Hormone replacement therapy; Z79.899 Other long term (current) drug therapy; Z95.1 Presence of aortocoronary bypass graft; Z95.5 Presence of coronary angioplasty implant and graft
CPT/HCPCS: 45378; 82962; J7120; J2405

== ENCOUNTER → 2024-01-13 | Outpatient (CLI) | payer MEDICARE, OTHER, SELFPAY ==
--- NOTE | 2024-01-13 17:17 | RAD_ITS ---
INDICATION: abdomiinal pain s/p colonoscopy EXAMINATION/TECHNIQUE: X-RAY - 4 views XR Abdomen Series W/ Chest 1 View COMPARISON: FINDINGS: --Chest: LINES/DEVICES: Sternotomy wires over the mediastinum. LUNGS: No consolidation, edema or effusion. No pneumothorax. MEDIASTINUM AND CARDIOVASCULAR STRUCTURES: Cardiac silhouette not enlarged. Central airways and mediastinal contour are unremarkable. BONES AND SOFT TISSUES: Lower cervical surgical fusion. --Abdomen: BOWEL GAS PATTERN: Non-obstructive. No bowel or stomach distention.: Fecal retention. FREE AIR: None visualized. ORGANOMEGALY: Not seen. BONES AND SOFT TISSUES: Degenerative changes. RAD/Acute Abdomen Inc Chest IMPRESSION: Colonic fecal retention. No sign of bowel obstruction. Electronically Signed: Richard Vega DO at 19:02 EDT ,
== END | disposition home or self-care (01) ==
LOC: MTRAD 17:17
PROVIDERS: PCP Family Medicine; Referring Provider Family Medicine; Visit Provider Family Medicine
DX: R10.9 Unspecified abdominal pain (principal)
CPT/HCPCS: 74022

== ENCOUNTER → 2024-02-28 | Outpatient (CLI) | payer MEDICARE, OTHER, SELFPAY ==
[2024-02-28 15:28] LABS: Osmolality, Serum 309 mOsm/KG (280-301)
[2024-02-28 15:52] LABS: Erythrocyte Sedimentation Rate 20 mm/hr (0-30)
[2024-02-28 15:54] LABS: Absolute Lymphocyte Count 1.68 X10^3/uL (0.83-4.51); Absolute Neutrophil Count 5.4 X10^3/uL (2.0-7.7); Basophil# 0.04 X10^3/uL; Basophil% 0.5 % (0-1); Eosinophil# 0.14 X10^3/uL; Eosinophils% 1.8 % (0-5); Hematocrit 37.4 % (37-47); Lymphocyte # 1.68 X10^3/ul (0.83-4.51); Lymphocyte % 21.4 % (19-41); Mean Corp Hgb Conc 32.1 g/dL (32-36); Mean Corpuscular Hgb 28.4 pg (27.0-32.0); Mean Corpuscular Volume 88.6 fL (81-99); Mean Platelet Vol. 10.1 fl (6.2-12.0); Monocyte# 0.56 X10^3/uL; Monocyte% 7.1 % (0-10); NRBC Flagged by Analyzer 0 % (0-5); Neutrophil # 5.38 X10^3/uL (2.7-7.7); Neutrophil % 68.7 % (47-70); Platelet Count 210 K/mm3 (150-450); RBC Distribution Width CV 14.1 % (11.6-14.6); RBC Distribution Width SD 45.3 fl (35.1-43.9); Red Blood Count 4.22 M/mm3 (4.2-5.4); White Blood Count 7.8 K/mm3 (4.4-11.0)
[2024-02-28 15:58] LABS: Vitamin B12 > 2000 pg/mL (211-911)
[2024-02-28 16:45] LABS: PTHIN 263.2 pg/mL (18.4-80.1)
[2024-02-28 17:00] LABS: ALB/GLOB Ratio 0.7 RATIO (0.9-2.4); AST(SGOT) 17 U/L (15-37); Alanine Aminotransfer ALT/SGPT 19 U/L (13-56); Albumin, Serum 2.9 g/dL (3.2-5.0); Alkaline Phosphatase 121 U/L (45-117); Anion Gap 5 (5-15); BUN 46 mg/dL (7-18); BUN/Creat Ratio 22.8 RATIO (10-20); CRP 6.51 mg/L (0.0-3.0); Calcium,Total 8.8 mg/dL (8.5-10.1); Chloride 104 mmol/L (98-107); Creatinine, Serum 2.02 mg/dL (0.55-1.02); EST Glomerular Filtration Rate 25 mL/min (>60); Est Glom Filt Rate - Afr Amer 31 mL/min (>60); Folates, (Folic Acid) > 100.00 ng/mL (3.1-55.4); Globulin 4.1 g/dL (2.2-4.2); Glucose 173 mg/dL (74-106); Potassium 3.8 mmol/L (3.5-5.1); Sodium Level 137 mmol/L (136-145); T4 Free Direct 0.84 ng/dL (0.76-1.46)
[2024-03-02 20:07] LABS: ANTINUCLEAR ANTIBODIES DIRECT Positive (Negative)
[2024-03-08 17:07] LABS: PROEL- Albumin 3.1 g/dL (2.9-4.4); PROEL- Alpha-1 Globulin 0.3 g/dL (0.0-0.4); PROEL- Alpha-2 Globulin 0.9 g/dL (0.4-1.0); PROEL- Globulin, Total 3.2 g/dL (2.2-3.9); PROEL- TOTAL PROTEIN 6.3 g/dL (6.0-8.5); PROEL-M-Spike Not Observed g/dL (Not Observed); VITAMIN B6 48.7 ug/L (3.4-65.2); Zinc, Plasma or Serum 45 ug/dL (44-115)
== END | disposition home or self-care (01) ==
PROVIDERS: PCP Family Medicine; Visit Provider Family Medicine
DX: E53.8 Deficiency of other specified B group vitamins (principal); R40.0 Somnolence; E87.1 Hypo-osmolality and hyponatremia
CPT/HCPCS: 36415; 80053; 82140; 82607; 82746; 83930; 83970; 84165; 84207; 84439; 84443; 84630; 85025; 85652; 86038; 86140

== ENCOUNTER → 2024-03-30 | Outpatient (CLI) | payer MEDICARE, OTHER, SELFPAY ==
[2024-03-30 16:38] LABS: Mucous, Urine 0 SEEN /hpf (<or=2+)
[2024-03-30 18:23] LABS: Color, Urine Yellow (Yellow); Glucose, Dipstick Normal (Normal); Ketone-Dipstick Negative (Negative); Leukocyte Esterase-Dipstick 500 /ul (Negative); Nitrite-Dipstick Negative (Negative); Occult Blood-Urine 50 /ul (Negative); Protein-Dipstick 100 mg/dl (Negative); Specific Gravity, Urine 1.015 (1.002-1.030); Urine Bilirubin Dipstick Negative (Negative); Urine Clarity Cloudy (Clear); Urine Urobilinogen Normal (Normal)
[2024-03-30 19:27] LABS: Bacteria 4+ /hpf (None Seen); White Blood Cells >100 SEEN /hpf (0-5)
[2024-03-30 19:30] LABS: Renal Epithelial Cells 0-5 SEEN /hpf (0-5); Squamous Epithelial Cells - UA 0-5 SEEN /hpf (5-10); Transitional Epithelial - Ur 0-5 SEEN /hpf (0-5)
[2024-03-30 19:31] LABS: Red Blood Cells-Urine 0-5 SEEN /hpf (0-5)
== END | disposition home or self-care (01) ==
LOC: LABSPEC 15:37
PROVIDERS: PCP Family Medicine; Visit Provider Family Medicine
DX: R30.0 Dysuria (principal)
CPT/HCPCS: 81001; 87077; 87086; 87088; 87186

== ENCOUNTER 2024-11-05 15:30 | Outpatient (RCR) | payer MEDICARE, OTHER, SELFPAY ==
--- NOTE | 2024-09-25 15:20 | HP.PTEVAL ---
Patient's Visit Information Visit Information Visit Information: SEBASTIÁN REYES is a 79 year old F referred to Physical Therapy by Dr. Con Johnson MD with a diagnosis of B R shoulder arm pain. Date of Evaluation: 09/25/24 Physical Therapist: Con Estrada, DPT, OCS, CSCS Visit Plan Frequency: 2x /Week Duration: 4-6 Weeks Plan: 2x/wek for 3-6 weeks... IE HEP scap circlees, cervical retraction, shoulder SLA AROM elevation, cervical rotation all 10x 4x/day and frequent breaks from sitting adn educated on sitting posture. Pt to use walkr at all times is th recommendation Pleas treat with MH and manual theerapy for STM to R periscap mm, cervical PROM and gntle manual traction, shoulder PROM. progress to strength with bands and general strength if desired. Subjective Subjective: R shoulder pain and k nots > L side. Has been there a couple months. She walks with a walker often adn feels that bothers her shoulders. Using cane today, no falls she says. pain is in neck and down to scapula R . doctor thinks she needs ex. Does some at home for L E recumbent bike and hand movements. Has done bands in the past. Sleep is interrupted as it wakes her up often. 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 Spends day doing nothing in chair and watching TV and sometimes alicia/needlepoint. they are hard to do. Lives with in one floor without steps but has ramp. Dresses I, helps putting on orthotic on R LE. 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 Bathroom self, shower I with helping walk in shower. Stopped neck exercises with heart problems 2023. Had stents placed and open heart surgery. and meds have helped. Chest not hurting anymore since last year, just shoulder and neck mostly on R sidee. Pain R shoulder pain posterior: Pain Intensity (Out of 10): 7 Pain Intensity Range: 7 and 10 Comment: losing use of hands Objective Objective: L BKA walking in wobbly with cane but mod I to SBA, recommended wh walker and did much better with that, typically uses one she says. I trasnfers using U from chair. R scap is painful to palpation through post scap MM, rhomboids, traps, UT moderatly to maximally, scapula move well but limited reetraction and depression B. UE AROM otherwise limited due to stiffness and degneration but WFL adn near symmetrical at 130 flexion 45 er,. Some pain end range R in scap with er and IR. elbow and wrist are WFL and symmetrical without pain. cervical AROM max limited ext 25 degrees, 35 L rotation adn 45 R rotation, pain both end ranges. reflexes 23 bi and tri B. sensation UE WNL to gross light touch B. - HK, - neer, - drop arm, - er lag test., - c/s compression. Mostly R periscap mm soft tissue inflammation is noticeable. FW head posture with elevated scap and protracted B. Balance/Special Test Scores Quick DASH Score: 50.0000 Goals Goal 1:: AROm R shoulder without increased pain Goal Time Frame: 4-6 Weeks Goal 2:: pain in R scapula 1/10 at worst adn 75% better Goal Time Frame: 4-6 Weeks Goal 3:: I appropriate HEP to limit future problems including neck ROM stretches, strngth to neck and shoulders and possibly general ex if desired. Goal Time Frame: 4-6 Weeks Goal 4:: quickdash score 15 or less Goal Time Frame: 4-6 Weeks Rehabilitation Potential Physical Therapy Diagnosis: R periscap pain limiting comfortable funciton, too sedentary. Rehabilitation Potential: Fair Anticipated Interventions Patient/Client Instruction: Educate patient on: Condition and Plan of Care For the Purpose of:: To decrease pain, To increase ROM, To improve muscle performance and motor function, To increase tolerance to activity/condition/position and To improve ability of physical actions for home/community/work/leisure Therapeutic Exercise to Include: Strength training, Postural training, Flexibilty training, Passive ROM and Active ROM For the Purpose of:: To decrease pain, To increase ROM and To improve nutrient delivery to tissue Manual Therapy Techniques to Include: Mobilization, Passive ROM and Soft tissue mobilization For the Purpose of:: To decrease pain, To increase ROM and To improve nutrient delivery to tissue Thermo therapy (hot pack): Yes For the Purpose of:: To increase ROM and To improve nutrient delivery to tissue Text: Thank you for the opportunity to evaluate your patient. For Medicare and Medicare HMO plans, please review the plan of care and approve it. It will need to be FAXED BACK to us at [phone] for Medicare purposes. For Medicare only, by signing this I certify the plan of care. Please let me know if there are questions or concerns regarding this plan of care. Physician Signature: Date:
--- NOTE | 2024-10-27 16:34 | HP.PTREVAL ---
Re-Evaluation Intro: Dr. Con Johnson MD, It has been my pleasure to treat SEBASTIÁN REYES over the last 10 visits for B R shoulder arm pain. Please see the progress note below for an update on the physical therapy plan of care! Subjective Subjective: New order received for R keane painful and red and swollen for 3-4 months. Intrmittent and worse with standing on it. Only has half a foot on that side. It gets up to 8-9/10 if she wakes up with it which happens now and then. It can really swell. Worse with being on feet alot. To doctor in a month. No exercises for that leg. 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 dons and doffs socka dn shoe I. gastroc on R max tight at 0 DF. C/O "pain" with stretching it. AROM 0 DF to 45 PF and 20 inv and 8 eversion. Trouble finding ev/inv movement at first but better with repetition. foot and calf tissue look normal, some mottled firmer tissue between calf and ankle on R side. strenght R ankle 4-/5 but c/o pain in all directions of resistance. Walking with short steps and requiring wh walker with veer little pushoff R. Mod I. Overall unusual presentation but likely unhealthy soft tissue in lower leg causing some discomfort. NEW POC for R keane included today with fair prognosis Plan Plan Plan: NEW POC details to include ankle now...2x/week for 2-4 weeks to towrk on ankle ROM and STM to lower leg as well as teaching ankle strength and standing proprioceptive ex for I. Do this along with progressive strengthcervical, scap adn UE, weaning manual on neck and scap unless needed. Balance/Gait/Functional tests Balance/Special Test Scores Quick DASH Score: 50.0000 Goals Goals Goal 1:: AROm R shoulder without increased pain Goal Time Frame: 4-6 Weeks Goal Progress: Progressing Goal 2:: pain in R scapula 1/10 at worst adn 75% better Goal Time Frame: 4-6 Weeks Goal Progress: Goal Met Goal 3:: I appropriate HEP to limit future problems including neck ROM stretches, strngth to neck and shoulders and possibly general ex if desired. Goal Time Frame: 4-6 Weeks Goal Progress: ROM, needs strength Goal 4:: quickdash score 15 or less Goal Time Frame: 4-6 Weeks Goal 5:: Pain in R ke[place] area 1/10 at worst and 75% better Goal Time Frame: 2-4 Weeks Goal Progress: NEW GOAL Goal 6:: I appropriate mgmt and exx of R LE pain Goal Time Frame: 2-4 Weeks Goal Progress: NEW GOAL Anticipated Interventions Anticipated Interventions Patient/Client Instruction: Educate patient on: Condition and Plan of Care For the Purpose of:: To decrease pain, To increase ROM, To improve muscle performance and motor function, To increase tolerance to activity/condition/position and To improve ability of physical actions for home/community/work/leisure Therapeutic Exercise to Include: Strength training, Postural training, Flexibilty training, Passive ROM and Active ROM For the Purpose of:: To decrease pain, To increase ROM and To improve nutrient delivery to tissue Manual Therapy Techniques to Include: Mobilization, Passive ROM and Soft tissue mobilization For the Purpose of:: To decrease pain, To increase ROM and To improve nutrient delivery to tissue Thermo therapy (hot pack): Yes For the Purpose of:: To increase ROM and To improve nutrient delivery to tissue Re-Evaluation Ending Re-evaluation ending: Please do not hesitate to contact me at [phone] by phone or if you have questions or concerns regarding this new plan of care! Sincerely, Con Estrada, DPT, OCS, CSCS
--- NOTE | 2024-11-05 16:23 | HP.PTREVAL ---
Re-Evaluation Intro: Dr. Con Johnson MD, It has been my pleasure to treat SEBASTIÁN REYES over the last 13 visits for B R shoulder arm pain. Please see the progress note below for an update on the physical therapy plan of care! Subjective Subjective: Making progress. Not as tight in the neck. R arm hurt last night. Comes and goes at times. Still bad at night. Doing exercises with band and ROM at home. [place] is doing wll with stocking and not sweelling or hurting like it was. Relationship with pain mgmt yrs ago but not in along time. Pt wishes to keep coming in but admitting only still 505 better and can do strength/ROM and stretching at home. Objective Objective/Function: AROM ceervical is 40 R rotation and 40 L rotation, no wincing, ext is 38 and slight L deviation. UE AROM to 140 and no wincing, full ER and IR. strength UE 4- flexion and abd with slight discomfort, er 4-, IR 4 B. No pain. R LE has compression garment on and is not botheering her today, has normalized ROM. Plan Plan Plan: f/u two weeks to check ankle and R shoulder pain. D/c if doing well , return to doctor if no change or worsening for other options, overall has stagnated improvement in shoulder neeck over last 3 weeks but ankle/LE is better. Goal is to ensure maintenance of improvement in R LE and R shoulder /neck pain with just HEP, fair prognosis with compliance. Balance/Gait/Functional tests Balance/Special Test Scores Quick DASH Score: 65.9075 Goals Goals Goal 1:: AROm R shoulder without increased pain Goal Time Frame: 4-6 Weeks Goal Progress: Goal Met Goal 2:: pain in R scapula 1/10 at worst adn 75% better Goal Time Frame: 4-6 Weeks Goal Progress: Not Progressing Goal 3:: I appropriate HEP to limit future problems including neck ROM stretches, strngth to neck and shoulders and possibly general ex if desired. Goal Time Frame: 4-6 Weeks Goal Progress: Goal Met Goal 4:: quickdash score 15 or less Goal Time Frame: 4-6 Weeks Goal Progress: Not Progressing Goal 5:: Pain in R [place] area 1/10 at worst and 75% better Goal Time Frame: 2-4 Weeks Goal Progress: with compression. Goal 6:: I appropriate mgmt and exx of R LE pain Goal Time Frame: 2-4 Weeks Goal Progress: Goal Met Anticipated Interventions Anticipated Interventions Patient/Client Instruction: Educate patient on: Condition and Plan of Care For the Purpose of:: To decrease pain, To increase ROM, To improve muscle performance and motor function, To increase tolerance to activity/condition/position and To improve ability of physical actions for home/community/work/leisure Therapeutic Exercise to Include: Strength training, Postural training, Flexibilty training, Passive ROM and Active ROM For the Purpose of:: To decrease pain, To increase ROM and To improve nutrient delivery to tissue Manual Therapy Techniques to Include: Mobilization, Passive ROM and Soft tissue mobilization For the Purpose of:: To decrease pain, To increase ROM and To improve nutrient delivery to tissue Thermo therapy (hot pack): Yes For the Purpose of:: To increase ROM and To improve nutrient delivery to tissue Re-Evaluation Ending Re-evaluation ending: Please do not hesitate to contact me at [phone] by phone or if you have questions or concerns regarding this new plan of care! Sincerely, Con Estrada, DPT, OCS, CSCS
--- NOTE | 2025-02-05 08:33 | HP.PT.NRP ---
Patient Information Patient Information: SEBASTIÁN REYES was seen in my office for initial evaluation on 09/25/24. The following Plan of Care was established for this patient: POC Established Initial Frequency: 2x /Week Initial Duration: 4-6 Weeks Anticipated Interventions Patient/Client Instruction: Educate patient on: Condition and Plan of Care For the Purpose of:: To decrease pain, To increase ROM, To improve muscle performance and motor function, To increase tolerance to activity/condition/position and To improve ability of physical actions for home/community/work/leisure Therapeutic Exercise to Include: Strength training, Postural training, Flexibilty training, Passive ROM and Active ROM For the Purpose of:: To decrease pain, To increase ROM and To improve nutrient delivery to tissue Manual Therapy Techniques to Include: Mobilization, Passive ROM and Soft tissue mobilization For the Purpose of:: To decrease pain, To increase ROM and To improve nutrient delivery to tissue Thermo therapy (hot pack): Yes For the Purpose of:: To increase ROM and To improve nutrient delivery to tissue Last Seen Last Seen: This patient was last seen in our office 11/05/24. Pertinent comments regarding their Physical therapy will appear below: Pt seen 13 visits of POC and was 50% better. Was to f/u two weeks later to ensure progress but did not schedule or attend. At this point, it has been over 3 months and I will discontinue from my care. At this point I will be discontinuing this patient from physical therapy. I would be happy to see this patient again in the future if found appropriate by the physician. Thank you! Con Estrada, DPT, OCS, CSCS Balance/Gait/Functional tests Balance/Special Test Scores Quick DASH Score: 65.9024
== END 2024-11-05 19:00 | disposition home or self-care (01) ==
LOC: PT 15:30
PROVIDERS: PCP Family Medicine; Referring Provider Family Medicine; Visit Provider Family Medicine
DX: M79.602 Pain in left arm; M79.601 Pain in right arm; M25.511 Pain in right shoulder; M25.512 Pain in left shoulder; R07.89 Other chest pain
CPT/HCPCS: 97110; 97140; 97162; 97530

== ENCOUNTER → 2025-02-17 | Outpatient (CLI) | payer MEDICARE, OTHER, SELFPAY ==
[2025-02-17 18:51] LABS: Hematocrit 36.4 % (37-47); Hemoglobin 12.0 g/dL (12.0-15.0); Immature Granulocytes Count 0.040 X10^3/uL (0.0-0.0); Mean Corp Hgb Conc 33.0 g/dL (32-36); Mean Corpuscular Volume 87.9 fL (81-99); Mean Platelet Vol. 9.9 fl (6.2-12.0); NRBC Flagged by Analyzer 0 % (0-5); Platelet Count 166 K/mm3 (150-450); RBC Distribution Width CV 14.1 % (11.6-14.6); RBC Distribution Width SD 44.8 fl (35.1-43.9); Red Blood Count 4.14 M/mm3 (4.2-5.4); White Blood Count 9.7 K/mm3 (4.4-11.0)
[2025-02-17 18:55] LABS: FOLATES,SERUM (FOLIC ACID) 13.90 ng/mL (4.60-34.80)
[2025-02-17 19:06] LABS: AST(SGOT) 19 U/L (<=31); Alanine Aminotransfer ALT/SGPT 18 U/L (<=34); Albumin, Serum 4.0 g/dL (3.4-4.8); Alkaline Phosphatase 128 U/L (35-104); Anion Gap 16 (5-15); BUN 49 mg/dL (4-19); BUN/Creat Ratio 18.9 RATIO (10-20); Calcium,Total 8.7 mg/dL (7.6-11.0); Carbon Dioxide 17.8 mmol/L (21.0-32.0); Chloride 99 mmol/L (98-108); Globulin 3.1 g/dL (2.2-4.2); Glucose 138 mg/dL (70-99); Potassium 4.4 mmol/L (3.3-5.1); Vitamin B12 743 pg/mL (180-914)
[2025-02-17 19:22] LABS: Creatinine, Urine (random) 52.90 mg/dL (28.00-217.00)
[2025-02-17 19:35] LABS: Microalbumin,Random Urine 1059.0 mg/L (<20 mg/L)
[2025-02-17 22:51] LABS: Color, Urine Yellow (Yellow); Glucose, Dipstick Normal (Normal); Ketone-Dipstick Negative (Negative); Leukocyte Esterase-Dipstick 500 /ul (Negative); Nitrite-Dipstick Negative (Negative); Occult Blood-Urine 10 /ul (Negative); Protein-Dipstick 100 mg/dl (Negative); Specific Gravity, Urine 1.020 (1.002-1.030); Urine Bilirubin Dipstick Negative (Negative)
[2025-02-19 16:09] LABS: PROEL- A/G Ratio 1.1 (0.7-1.7); PROEL- Albumin 3.6 g/dL (2.9-4.4); PROEL- Alpha-1 Globulin 0.2 g/dL (0.0-0.4); PROEL- Alpha-2 Globulin 0.9 g/dL (0.4-1.0); PROEL- Beta Globulin 1.0 g/dL (0.7-1.3); PROEL- Gamma Globulin 1.1 g/dL (0.4-1.8); PROEL- Globulin, Total 3.2 g/dL (2.2-3.9); PROEL- TOTAL PROTEIN 6.8 g/dL (6.0-8.5); PROEL-M-Spike Not Observed g/dL (Not Observed)
== END | disposition home or self-care (01) ==
LOC: MFPLAB 16:51
PROVIDERS: PCP Family Medicine; Visit Provider Family Medicine
DX: N39.0 Urinary tract infection, site not specified (principal); E11.22 Type 2 diabetes mellitus with diabetic chronic kidney disease; R53.83 Other fatigue; E53.8 Deficiency of other specified B group vitamins
CPT/HCPCS: 36415; 80053; 81002; 82043; 82570; 82607; 82746; 83036; 84165; 84443; 85025; 87077; 87086; 87088; 87186

== ENCOUNTER → 2025-02-22 | Outpatient (CLI) | payer MEDICARE, SELFPAY ==
[2025-02-22 18:15] LABS: Osmolality, Serum 305 mOsm/KG (280-301)
[2025-02-22 18:23] LABS: AST(SGOT) 19 U/L (<=31); Alanine Aminotransfer ALT/SGPT 13 U/L (<=34); Albumin, Serum 3.8 g/dL (3.4-4.8); Alkaline Phosphatase 112 U/L (35-104); Anion Gap 16 (5-15); BUN 52 mg/dL (4-19); BUN/Creat Ratio 20.5 RATIO (10-20); Calcium,Total 8.6 mg/dL (7.6-11.0); Carbon Dioxide 17.5 mmol/L (21.0-32.0); Chloride 103 mmol/L (98-108); Globulin 3.0 g/dL (2.2-4.2); Glucose 161 mg/dL (70-99); Magnesium 2.4 mg/dL (1.5-2.2); Potassium 4.4 mmol/L (3.3-5.1)
[2025-02-22 20:50] LABS: Osmolality, Urine 390 mOsm/KG
== END | disposition home or self-care (01) ==
PROVIDERS: PCP Family Medicine; Referring Provider Family Medicine; Visit Provider Family Medicine
DX: E11.22 Type 2 diabetes mellitus with diabetic chronic kidney disease (principal); R74.8 Abnormal levels of other serum enzymes
CPT/HCPCS: 36415; 80053; 83735; 83930; 83935